=== PATIENT | female | born 1965 | race Caucasian/White ===

== ENCOUNTER 2017-09-12 17:09 | Inpatient (IN) | payer OTHER, SELFPAY ==
[2017-09-12] VITALS (12 sets, daily range): BP systolic 109–153; BP diastolic 71–113; PULSE 91–110; RESP 14–25; TEMP 36.4–36.8; O2SAT 92–96; BMI 46.0; BMI 46.1; BMI 49.8
[2017-09-12 17:31] LABS: Bedside Glucose > 500 mg/dL (70-110)
[2017-09-12 17:47] LABS: Mucous, Urine 0 SEEN /hpf (<or=2+); Red Blood Cells-Urine 0 SEEN /hpf (0-5)
[2017-09-12 17:51] LABS: Color, Urine Straw (Yellow); Glucose, Dipstick 1000 mg/dl (Normal); Ketone-Dipstick Negative (Negative); Leukocyte Esterase-Dipstick 100 /ul (Negative); Nitrite-Dipstick Negative (Negative); Occult Blood-Urine 25 /ul (Negative); Protein-Dipstick 15 mg/dl (Negative); Urine Bilirubin Dipstick Negative (Negative); Urine Clarity Clear (Clear); Urine Urobilinogen Normal (Normal); Urine pH 6.5 (5.0 - 8.0)
[2017-09-12 17:56] LABS: Blood Gas Specimen Type VEN; O2 Delivery Device Room Air; Time Given 1740; VBG BASE EXCESS 4 mmol/L (-1.0-3.5); VBG Bicarbonate 29 mmol/L (22-26); VBG Oxygen Content 30 mmol/L (23-33); VBG PO2 46 mmHg (25-40); VBG SO2 82 % (50-70); VBG pCO2 45.6 mmHg (41-51); VBG pH 7.41 (7.32-7.42)
[2017-09-12] MEDS: 0.9% Normal Saline 1,000 ML 1000 ML IV ×2 (17:56→18:00)
[2017-09-12 18:03] LABS: Absolute Lymphocyte Count 1.66 X10^3/ul (0.83-4.51); Absolute Neutrophil Count 4.2 X10^3/uL (2.0-7.7); Basophil# 0.04 X10^3/uL; Basophil% 0.6 % (0-1); Eosinophil# 0.18 X10^3/uL; Eosinophils% 2.8 % (0-5); Hematocrit 40.5 % (37-47); Hemoglobin 12.7 g/dl (12.0-15.0); Lymphocyte # 1.66 X10^3/ul (4.0); Lymphocyte % 26.1 % (19-41); Mean Corp Hgb Conc 31.4 g/gl (32-36); Mean Corpuscular Hgb 24.5 pg (27.0-32.0); Mean Corpuscular Volume 78.2 fL (81-99); Mean Platelet Vol. 10.4 fl (6.2-12.0); Monocyte# 0.27 X10^3/uL; Monocyte% 4.2 % (0-10); Neutrophil # 4.17 X10^3/uL (2.7-7.7); Neutrophil % 65.7 % (47-70); Platelet Count 230 K/mm3 (150-450); RBC Distribution Width CV 16.6 % (11.6-14.6); Red Blood Count 5.18 M/mm3 (4.2-5.4); White Blood Count 6.4 K/mm3 (4.4-11.0)
[2017-09-12 18:12] LABS: POSITIVE COUNT NO; POSITIVE DIFFERENTIAL NO; POSITIVE MORPHOLOGY NO
[2017-09-12 18:21] LABS: Squamous Epithelial Cells - UA 0-5 SEEN /hpf (5-10); White Blood Cells 50-100 SEEN /hpf (0-5); Yeast-Urine 1+ /hpf (None Seen)
[2017-09-12 18:22] LABS: Bacteria RARE /hpf (None Seen)
[2017-09-12 18:31] LABS: ALB/GLOB Ratio 0.6 RATIO (0.9-2.4); AST(SGOT) 106 U/L (15-37); Alanine Aminotransfer ALT/SGPT 89 U/L (13-56); Albumin, Serum 3.3 g/dL (3.2-5.0); Alkaline Phosphatase 237 U/L (45-117); Anion Gap 9 (5-15); BUN 15 mg/dL (7-18); BUN/Creat Ratio 12.9 RATIO (10-20); Calcium,Total 9.1 mg/dL (8.5-10.1); Chloride 87 mmol/L (98-107); Creatinine, Serum 1.16 mg/dL (0.55-1.02); EST Glomerular Filtration Rate 52 mL/min (>60); Est Glom Filt Rate - Afr Amer 63 mL/min (>60); Estimated Creatinine Clearance 43.78 ml/min; Globulin 5.7 g/dL (2.2-4.2); Glucose 711 mg/dL (74-106); Potassium 4.4 mmol/L (3.5-5.1); Sodium Level 123 mmol/L (136-145)
--- NOTE | 2017-09-12 18:43 | ED.RN ---
PT HAS NOT BEEN COMPLIANT WITH MEDICATIONS FOR APPROXIMATELY 2 WEEKS. PT STATES SHE TOOK SOME INSULIN TODAY.
--- NOTE | 2017-09-12 19:09 | HP.PCM_ITS ---
Problem List (1) Hyperosmolar non-ketotic state in patient with type 2 diabetes mellitus Status: Acute (2) Hypertension Status: Chronic Qualifiers: Hypertension type: essential hypertension Qualified Code(s): I10 - Essential (primary) hypertension (3) Hypothyroidism Status: Chronic (4) Hyperlipidemia Status: Chronic (5) Morbid obesity Status: Chronic History of Present Illness Date of Admission: 09/12/17 Chief Complaint: Dizziness, increased thirst The patient is a 51 year old F with a past medical history of type II DM, hypertension, hypothyroidism who comes in with complaints of increased urinary frequency, increased thirst, dizziness, and blurred vision. Patient states that she stopped to take her insulin for about a week. She denied that she was depressed but says she just was not taking good care of herself. She states that she has headaches, blurred vision, but denied any fever or chills or chest pain or palpitations. She complains also of leg cramps. Vitals were T 98.2F, HR 110, BP 153/99, RR 20 Spo2 96% on room air Past Medical History Past Medical History (Chronic Problems): Chronic Problems Hypertension (Chronic) Hypothyroidism (Chronic) Hyperlipidemia (Chronic) Morbid obesity (Chronic) Allergies codeine Allergy (Verified 09/12/17 17:11) Angioedema Penicillins Allergy (Verified 09/12/17 17:11) Rash Sulfa (Sulfonamide Antibiotics) Allergy (Verified 09/12/17 17:11) Rash sulfamethoxazole [From Bactrim] Allergy (Verified 09/12/17 17:11) Rash trimethoprim [From Bactrim] Allergy (Verified 09/12/17 17:11) Rash Home Medications: Ambulatory Orders Medication Instructions Recorded Atorvastatin Calcium [Lipitor] 40 mg PO QHS 08/18/15 Insulin Aspart [Novolog Flexpen 30 units SQ ACHS 08/18/15 (BK)] Levonorgestrel [Mirena] 1 each IY X1 08/18/15 Levothyroxine Sodium [Synthroid] 300 mcg PO DAILY 08/18/15 Lisinopril [Zestril] 40 mg PO DAILY 08/18/15 Metformin HCl [Glucophage] 500 mg PO DAILY 08/18/15 Dulaglutide [Trulicity] 1.5 mg SQ QWEEK 01/24/17 Insulin Degludec [Tresiba 74 units SQ DAILY 01/24/17 Flextouch U-100] Ergocalciferol [Vitamin D] 50,000 unit PO Q7D 09/12/17 Naproxen [Naprosyn] 500 mg PO BID 09/12/17 Surgical History: cholecystectomy, dilatation and curettage Psychiatric History: No pertinent psych hx OB/GYN DOCTOR History: No pertinent OB/GYN DOCTOR history Lives: With Family Smoking Status: Former smoker Tobacco Use: Non-smoker Alcohol: Occasional Drugs: None - *Family History Maternal History Items: Cancer - breast, Diabetes Paternal History Items: Cancer - brain, kidney Review of Systems Constitutional: Denies: Anorexia, Chills, Fever, Weakness, Weight Change Eyes: Denies: Blurred vision, Cataracts, Conjunctivae Inflammation, Double vision, Pain, Redness HEENT: Denies: Difficulty Hearing, Head Aches, Hearing Changes, Sinus Congestion , Sinus Drainage, Sore Throat Cardiovascular: Denies: Chest Pain, Claudication, Chest Pressure, Orthopnea, Palpitations Respiratory: Denies: Cough, Hemoptysis, Shortness of breath at rest, Shortness of breath upon exertion, Sputum production Gastrointestinal: Denies: Abdominal Pain, Constipation, Hematemesis, Nausea, Vomiting Genitourinary: Denies: Dysuria, Frequency, Incontinence Musculoskeletal: Denies: Joint Pain, Joint stiffness, Joint swelling, Joint Tenderness Skin: Denies: Rash, Wounds Neurological: Denies: Difficulty swallowing, Focal weakness, Numbness, Tingling Psychiatric: Denies: Anxiety, Depression, Homicidal Ideations, Suicidal Ideations Endocrine: Denies: Change in Body Habitus, Heat/ Cold Intolerance Hematologic/ Lymphatic: Denies: Easy Bruising, Easy Bleeding VTE Information - Inpt Only VTE Present on Admission: No VTE Pharm Prophylaxis ordered?: Yes Patient Problems: Active and Suspected Problems Hyperosmolar non-ketotic state in patient with type 2 diabetes mellitus (Acute) - Physical Exam General: Alert, Oriented x3, Cooperative HEENT: Atraumatic, PERRLA, EOMI, Normocephalic Oral: Moist Mucosa Neck: Supple Lungs: Clear to auscultation, Normal air movement Cardiovascular: Regular rate, Regular Rhythm, Normal S1, Normal S2, No murmurs Abdomen: Bowel Sounds Present, Soft, Non Tender, Non-Distended, No Hepato- splenomegaly Extremities: No edema Skin: No rashes Musculoskeletal: No Tenderness to Palpation of Joints or Extremities Lymphatic: No Cervical, Supraclavicular, or Inguinal Adenopathy Neurological: Cranial nerves II-XII grossly intact, Neuro grossly intact Psych/Mental Status: Normal Affect, Appropriate Vital Signs Temp Pulse Resp BP Pulse Ox 98.2 F 110 H 20 H 153/99 H 96 09/12/17 17:12 09/12/17 17:12 09/12/17 17:12 09/12/17 17:12 09/12/17 17:12 Oxygen Delivery Method Room Air Weight: 110.7 kg Body Mass Index (BMI) 46.0 Finger Stick Blood Glucose 600 Laboratory Tests Past 24 Hrs 09/12/17 09/12/17 09/12/17 17:20 17:40 17:40 WBC 6.4 RBC 5.18 Hgb 12.7 Hct 40.5 MCV 78.2 L MCH 24.5 L MCHC 31.4 L RDW 16.6 H RDW Differential 47.0 H Plt Count 230 MPV 10.4 Immature Gran % (Auto) 0.600 Neut % (Auto) 65.7 Lymph % (Auto) 26.1 [place] % (Auto) 4.2 Eos % (Auto) 2.8 Baso % (Auto) 0.6 Absolute Neuts (auto) 4.2 Absolute Lymphs (auto) 1.66 Total Counted Not Reportable Specimen Type VBG pH VBG pO2 VBG O2 Sat (Calc) VBG O2 Content VBG Base Excess POC Mix VBG pCO2 Pt Tmp O2 Delivery Device Blood Gas Notified Whom Blood Gas Notified Time Sodium 123 L Potassium 4.4 Chloride 87 L Carbon Dioxide 27.0 Anion Gap 9 BUN 15 Creatinine 1.16 H Estim Creat Clear Calc 43.78 Est GFR (MDRD) Af Amer 63 Est GFR (MDRD) Non-Af 52 L BUN/Creatinine Ratio 12.9 Glucose 711 H* Calcium 9.1 Total Bilirubin 0.50 AST 106 H ALT 89 H Alkaline Phosphatase 237 H Total Protein 9.0 H Albumin 3.3 Globulin 5.7 H Albumin/Globulin Ratio 0.6 L Urine Color Straw Urine Clarity Clear Urine pH 6.5 Ur Specific [place] 1.010 Urine Protein 15 H Urine Glucose (UA) 1000 H Urine Ketones Negative Urine Occult Blood 25 H Urine Nitrite Negative Urine Bilirubin Negative Urine Urobilinogen Normal Ur Leukocyte Esterase 100 H Urine RBC 0 SEEN Urine WBC 50-100 SEEN Ur Squamous Epith Cells 0-5 SEEN Urine Bacteria RARE Urine Mucus 0 SEEN Urine Yeast 1+ Acetone Level 09/12/17 09/12/17 17:40 17:49 WBC RBC Hgb Hct MCV MCH MCHC RDW RDW Differential Plt Count MPV Immature Gran % (Auto) Neut % (Auto) Lymph % (Auto) [place] % (Auto) Eos % (Auto) Baso % (Auto) Absolute Neuts (auto) Absolute Lymphs (auto) Total Counted Specimen Type SATHYA VBG pH 7.41 VBG pO2 46 H VBG O2 Sat (Calc) 82 H VBG O2 Content 30 VBG Base Excess 4 H POC Mix VBG pCO2 Pt Tmp 45.6 O2 Delivery Device Room Air Blood Gas Notified Whom ED Blood Gas Notified Time 1740 Sodium Potassium Chloride Carbon Dioxide Anion Gap BUN Creatinine Estim Creat Clear Calc Est GFR (MDRD) Af Amer Est GFR (MDRD) Non-Af BUN/Creatinine Ratio Glucose Calcium Total Bilirubin AST ALT Alkaline Phosphatase Total Protein Albumin Globulin Albumin/Globulin Ratio Urine Color Urine Clarity Urine pH Ur Specific [place] Urine Protein Urine Glucose (UA) Urine Ketones Urine Occult Blood Urine Nitrite Urine Bilirubin Urine Urobilinogen Ur Leukocyte Esterase Urine RBC Urine WBC Ur Squamous Epith Cells Urine Bacteria Urine Mucus Urine Yeast Acetone Level NEGATIVE POC Glucose 09/12/17 17:26 POC Glucose > 500 H* Assessment/Plan Active and Suspected Problems Hyperosmolar non-ketotic state in patient with type 2 diabetes mellitus (Acute) 51 year old F with a past medical history of type II DM, hypertension, hypothyroidism who comes in with complaints of increased urinary frequency, increased thirst, dizziness, and blurred vision. 1. HHS in a type 2DM patient to medication noncompliance, anion gap is 9, patient is very dehydrated, tachycardic from dehydration, HbA1c was 11.1(2013) Plan: Admit to ICU, IV fluids, insulin drip, BMP every 4 hours, monitor vitals closely, strict I's and O's 2. Hyponatremia secondary to hyperglycemia, will give IV fluids and recheck blood work in a.m. 3. NARAYAN secondary to dehydration, will give IV fluids, recheck labs in am 4. Elevated liver function tests, likely secondary to fatty liver, will check acute hepatic panel, ultrasound of the liver 5. Asymptomatic bacteriuria, was given 1 dose of ceftriaxone in the ED, would not treat as patient has no symptoms of UTI -urine frequency is secondary to uncontrolled blood glucose 6. Hypertension, uncontrolled, on lisinopril, will hold for now in light of NARAYAN , will add hydralazine prn 7. Hypothyroidism, on Synthroid 8. Hypelipidemia, on statin 9. Morbid Obesity, diet and exercise advised, needs referral to weight management/bariatric clinic in the outpatient. 10. DVT PPx -Lovenox SC Code Visit Inpatient E&M: 42274 Init Hosp L3
--- NOTE | 2017-09-12 19:13 | ED.VISSUMM ---
- ER Visit Summary Date of Service: 09/12/17 Chief Complaint: High blood sugar History of Present Illness: The patient is a 51 F who has been noncompliant with her insulin for the past 2-3 weeks. She states that she just quit taking it. I am she has had urinary frequency increased thirst and is concerned for dehydration. She also complains of muscle cramps. She has not been checking her blood sugar at home. No fevers vomiting diarrhea chest pain shortness of breath or abdominal pain. Physical Examination: Heart rate 110 vitals otherwise unremarkable I mucous membranes Heart regular tachycardia Lungs are clear Abdomen soft No rash Alert Test Results: Laboratory studies notable for glucose of 711. Sodium 123. Normal anion gap. Negative ketones. Normal pH on venous blood gas. Alkaline phosphatase is 237 with ALT 89 and AST 106. UA shows leukocyte esterase and 50-100 WBCs. Emergency Department Course and Treatment: Was treated with aggressive IV fluids. She was started on insulin drip and given IV Rocephin for UTI. She was discussed with the hospitalist and will be admitted to the ICU. Treatment Plan: [] Disposition: Admit Impression: UTI HHS This note was generated with [employer] dictation software. It may contain incorrect words, spelling, and punctuation that were not noted in review of the chart prior to signing ED Disposition - Plan for ED Patient: Chief Complaint: Hyperglycemia Referrals: Tj Douglass MD [Primary Care Provider] -
[2017-09-12] MEDS: Ceftriaxone 1 GM/50 mL Premix x1 IV (19:39)
[2017-09-12 19:46] LABS: Bedside Glucose > 500 mg/dL (70-110)
--- NOTE | 2017-09-12 20:08 | NURSING ---
BLOOD GLUCOSE DECREASED BY 55, DECREASED RATE BY 2UNITS/HR. INSULIN RUNNING AT 3.5UNITS/HR.
[2017-09-12 20:10] LABS: Bedside Glucose 492 mg/dL (70-110)
[2017-09-12 20:46] LABS: Bedside Glucose 446 mg/dL (70-110)
[2017-09-12 21:03] LABS: Magnesium 1.9 mg/dL (1.6-2.6)
[2017-09-12 21:13] LABS: Hemoglobin A1c 13.8 % (4.2-6.3)
[2017-09-12] MEDS: Atorvastatin Calcium 20 MG Tablet 40 MG PO (21:30)
[2017-09-12 22:01] LABS: Bedside Glucose 413 mg/dL (70-110)
[2017-09-12 22:33] LABS: M R Staph aureus DNA By PCR Negative (Negative); Probe Check PASS; Specimen Processing Control PASS
[2017-09-12 22:40] LABS: Bedside Glucose 400 mg/dL (70-110)
[2017-09-12] MEDS: 0.9% Normal Saline 1,000 ML 250 ML IV (22:40)
[2017-09-12 23:41] LABS: Bedside Glucose 322 mg/dL (70-110)
[2017-09-13] VITALS (16 sets, daily range): BP systolic 98–127; BP diastolic 64–84; PULSE 82–97; RESP 14–26; TEMP 36.1–37.3; O2SAT 92–99
[2017-09-13 00:51] LABS: Bedside Glucose 322 mg/dL (70-110)
[2017-09-13 01:56] LABS: Bedside Glucose 317 mg/dL (70-110)
[2017-09-13 02:31] LABS: Bedside Glucose 325 mg/dL (70-110)
[2017-09-13 03:41] LABS: Bedside Glucose 326 mg/dL (70-110)
[2017-09-13] MEDS: 0.9% Normal Saline 1,000 ML 250 ML IV (03:48)
[2017-09-13 04:05] LABS: Hematocrit 36.9 % (37-47); Hemoglobin 11.6 g/dl (12.0-15.0); Mean Corp Hgb Conc 31.4 g/gl (32-36); Mean Corpuscular Hgb 23.9 pg (27.0-32.0); Mean Corpuscular Volume 76.1 fL (81-99); Mean Platelet Vol. 10.4 fl (6.2-12.0); Platelet Count 231 K/mm3 (150-450); RBC Distribution Width CV 16.9 % (11.6-14.6); RBC Distribution Width SD 45.2 fl (35.1-43.9); Red Blood Count 4.85 M/mm3 (4.2-5.4); White Blood Count 6.4 K/mm3 (4.4-11.0)
[2017-09-13 04:09] LABS: Scan Indicated on CBC? Y/N NO
[2017-09-13 04:41] LABS: Bedside Glucose 354 mg/dL (70-110)
[2017-09-13] MEDS: Levothyroxine 150 MCG Tablet 300 MCG PO (05:08)
[2017-09-13 05:09] LABS: ALB/GLOB Ratio 0.6 RATIO (0.9-2.4); AST(SGOT) 70 U/L (15-37); Alanine Aminotransfer ALT/SGPT 68 U/L (13-56); Albumin, Serum 2.9 g/dL (3.2-5.0); Alkaline Phosphatase 169 U/L (45-117); Anion Gap 5 (5-15); BUN 11 mg/dL (7-18); BUN/Creat Ratio 14.2 RATIO (10-20); Bilirubin, Direct 0.13 mg/dL (0.00-0.30); Calcium,Total 8.1 mg/dL (8.5-10.1); Chloride 96 mmol/L (98-107); Creatinine, Serum 0.78 mg/dL (0.55-1.02); EST Glomerular Filtration Rate 83 mL/min (>60); Est Glom Filt Rate - Afr Amer 101 mL/min (>60); Estimated Creatinine Clearance 65.11 ml/min; Glucose 340 mg/dL (74-106); Potassium 3.9 mmol/L (3.5-5.1); Protein, Total 7.9 g/dL (6.4-8.2); Sodium Level 132 mmol/L (136-145)
[2017-09-13 05:55] LABS: Bedside Glucose 384 mg/dL (70-110)
--- NOTE | 2017-09-13 05:55 | US_ITS ---
STUDY: ABDOMINAL ULTRASOUND - RIGHT UPPER QUADRANT REASON FOR VISIT: Female, 51 years old. Elevated liver function tests. TECHNIQUE: Ultrasound evaluation of the right upper quadrant was performed with real-time and static hardin-scale imaging. TECHNICAL QUALITY: Adequate. COMPARISON: None. FINDINGS: Liver: The liver is enlarged and measures 21.7 cm. There is increased echogenicity consistent with fatty infiltration. The bile ducts are within normal limits. There is hepatic color flow. The direction of portal flow is hepatopetal. There is no demonstrated mass lesion. Gallbladder: The patient is status post cholecystectomy. Common Bile Duct (C.B.D.): The common bile duct measures 3.1 mm. Pancreas: Normal size of the head, body of the pancreas. The tail portion is obscured due to overlying bowel gas. There is normal echogenicity of the pancreas. There is no demonstrated pancreatic mass or cyst. Right Kidney: Normal size of the right kidney. The right kidney measures 12.3 cm x 4.7 cm x 5.1 cm. Normal renal cortex. The right cortex measures 1.6 cm. There is no demonstrated renal mass or cyst. There is no right hydronephrosis. US/Liver IMPRESSION: Hepatomegaly and fatty infiltration of the liver. Electronically Signed: Moy Rivera MD at 13:57 EST Tel [phone], Service support ,
[2017-09-13 07:06] LABS: Bedside Glucose 417 mg/dL (70-110)
[2017-09-13] MEDS: Ipratropium/Albuterol Sulfate 3 ML AMPUL.NEB INHALATION ×3 (07:19→15:05)
--- NOTE | 2017-09-13 10:47 | PN_ITS ---
Patient Problems: Active and Suspected Problems Hyperosmolar non-ketotic state in patient with type 2 diabetes mellitus (Acute) Subjective: Chief complaint: Follow-up after admission for hyperglycemic hyperosmolar state , severe dehydration and pseudohyponatremia. Patient seen and examined. No acute events overnight. She complained of mild headache and nausea. Denied abdominal pain, vomiting. All over, she is feeling better. Her vital signs are stable. - Physical Exam General: Alert, Oriented x3, Cooperative, No apparent distress HEENT: Atraumatic, PERRLA, EOMI Oral: No Gingival or Mucosal Lesions/ Ulcerations, Dry Mucosa Neck: Supple, No JVD, Negative Carotid Bruits, Trachea Midline, Thyroid Normal Size and Texture Lungs: Clear to auscultation, No rhonchi, No wheeze, No rales, Diminished Cardiovascular: Regular rate, Regular Rhythm, Normal S1, Normal S2, No murmurs, PMI Normal Abdomen: Bowel Sounds Present, Soft, Non Tender, Non-Distended, No Hepato- splenomegaly, Obese Extremities: No clubbing, No cyanosis, No edema Skin: No rashes, No breakdown Lymphatic: No Cervical, Supraclavicular, or Inguinal Adenopathy Neurological: Cranial nerves II-XII grossly intact, Motor Exam 5/5 strength throughout Psych/Mental Status: Normal Affect, Appropriate, Alert and oriented to time, place, person, mood and affect Vital Signs Temp Pulse Resp BP Pulse Ox 98.5 F 95 24 H 124/83 H 94 09/13/17 05:00 09/13/17 09:00 09/13/17 09:00 09/13/17 09:00 09/13/17 09:00 Oxygen Flow Rate 2 Oxygen Delivery Method Room Air Weight: 264 lb 12.403 oz Body Mass Index (BMI) 49.8 Finger Stick Blood Glucose 492 Intake and Output for Last 24 Hours 09/11/17 09/12/17 09/13/17 23:59 23:59 23:59 Intake Total 1125.4 / 1125.4 1296.5 / 1296.5 Output Total 225 / 225 275 / 275 Balance 900.4 / 900.4 1021.5 / 1021.5 Laboratory Tests Past 24 Hrs 09/12/17 09/12/17 09/12/17 20:25 20:30 20:30 WBC RBC Hgb Hct MCV MCH MCHC RDW RDW Differential Plt Count MPV Sodium Potassium Chloride Carbon Dioxide Anion Gap BUN Creatinine Estim Creat Clear Calc Est GFR (MDRD) Af Amer Est GFR (MDRD) Non-Af BUN/Creatinine Ratio Glucose Hemoglobin A1c 13.8 H Calcium Magnesium 1.9 Total Bilirubin Direct Bilirubin AST ALT Alkaline Phosphatase Troponin I Total Protein Albumin Globulin Albumin/Globulin Ratio Hepatitis A IgM Ab Hep Bs Antigen Hep B Core IgM Ab Hepatitis C Ab (EIA) MRSA (PCR) Negative 09/12/17 09/13/17 09/13/17 20:30 00:00 03:50 WBC 6.4 RBC 4.85 Hgb 11.6 L Hct 36.9 L MCV 76.1 L MCH 23.9 L MCHC 31.4 L RDW 16.9 H RDW Differential 45.2 H Plt Count 231 MPV 10.4 Sodium Potassium Chloride Carbon Dioxide Anion Gap BUN Creatinine Estim Creat Clear Calc Est GFR (MDRD) Af Amer Est GFR (MDRD) Non-Af BUN/Creatinine Ratio Glucose Hemoglobin A1c Calcium Magnesium Total Bilirubin Direct Bilirubin AST ALT Alkaline Phosphatase Troponin I 0.05 Total Protein Albumin Globulin Albumin/Globulin Ratio Hepatitis A IgM Ab Pending Hep Bs Antigen Pending Hep B Core IgM Ab Pending Hepatitis C Ab (EIA) Pending MRSA (PCR) 09/13/17 09/13/17 09/13/17 03:50 03:50 08:40 WBC RBC Hgb Hct MCV MCH MCHC RDW RDW Differential Plt Count MPV Sodium 132 L Potassium 3.9 Chloride 96 L Carbon Dioxide 31.0 Anion Gap 5 BUN 11 Creatinine 0.78 Estim Creat Clear Calc 65.11 Est GFR (MDRD) Af Amer 101 Est GFR (MDRD) Non-Af 83 BUN/Creatinine Ratio 14.2 Glucose 340 H Hemoglobin A1c Calcium 8.1 L Magnesium Total Bilirubin 0.40 Direct Bilirubin 0.13 AST 70 H ALT 68 H Alkaline Phosphatase 169 H Troponin I 0.05 0.05 Total Protein 7.9 Albumin 2.9 L Globulin 5.0 H Albumin/Globulin Ratio 0.6 L Hepatitis A IgM Ab Hep Bs Antigen Hep B Core IgM Ab Hepatitis C Ab (EIA) MRSA (PCR) POC Glucose 09/13/17 09/13/17 09/13/17 07:00 05:47 04:37 POC Glucose 417 H 384 H 354 H 09/13/17 09/13/17 09/13/17 03:35 02:26 01:48 POC Glucose 326 H 325 H 317 H 09/13/17 09/12/17 09/12/17 00:42 23:35 22:35 POC Glucose 322 H 322 H 400 H 09/12/17 09/12/17 09/12/17 21:53 20:28 20:03 POC Glucose 413 H 446 H 492 H* 09/12/17 19:32 POC Glucose > 500 H* Assessment/Plan Active and Suspected Problems Hyperosmolar non-ketotic state in patient with type 2 diabetes mellitus (Acute) this is a 51 years old female patient presented to the emergency room because of high blood sugar, thirst and dizziness and she was found to have blood sugar of more than 700 mg/dL, serum bicarbonate of 27 and no ketones in the urine consistent with hyperosmolar hyperglycemic state with severe dehydration and pseudohyponatremia. #1 hyperglycemic hyperosmolar state: This is due to noncompliance. This is based on blood sugar of more than 600 on admission, serum bicarbonate of more than 18 and negative acetone in the urine. Patient was on IV insulin drip. Blood sugar 123 100-400 range this morning. She is off insulin drip. Serum bicarbonate and anion gap are normal. Plan: Start ADA diet, resume home doses of NovoLog insulin and degludec insulin, transferred to [facility] floor. #2 severe dehydration: Secondary to above. Mucous membranes are very dry, felt better. Admission creatinine was 1.16, today's creatinine is 0.78, BUN is normal. Plan to continue IV fluids, repeat BMP tomorrow morning. #3 pseudohyponatremia: Secondary to hypoglycemia. Admission sodium was 123, improved to 132 today. Corrected sodium for glucose this morning is 136 mg/dL. #4 elevated LFT:Patient denied any right upper quadrant abdominal pain. Could be due to fatty liver and diabetes. Liver transaminases are trending down as well as alkaline phosphatase. Total and direct bilirubin are normal. Ultrasound liver done, awaiting the results. #5 uncontrolled type 2 diabetes mellitus: Hemoglobin A1c is 13.8. Patient admitted that she is not compliant with her insulin at home. Plan as above. #6 hypertension: Blood pressure stable, continue current medication. #7 hypothyroidism: Continue levothyroxine. #8 hyperlipidemia: Continue statins. #9 DVT prophylaxis: Subcu Lovenox. This note was generated with [employer] dictation software. It may contain incorrect words, spelling, and punctuation that were not noted in checking the note before signing. Code Visit Inpatient E&M: 50737 Subs Hosp L2
[2017-09-13] MEDS: Famotidine 20 MG Tablet PO (10:51)
--- NOTE | 2017-09-13 12:04 | SLEEP ---
Patient had POSITIVE split night sleep study on 08/14/17 for which she was ordered CPap 13cm by Dr. Derek Douglass. Per documentation from [facility] they have been unable to reach her to schedule setup. Discussed this with the patient, she states she has an appt for October 07 at [facility] [place] machine pecan picker her cpap. I verified this with Reyna at [facility] and made her aware of patient's financial concerns. She will note patient chart there and have them discuss options with her. They will attempt to see while still in hospital if possible.
[2017-09-13 12:06] LABS: Bedside Glucose 397 mg/dL (70-110)
--- NOTE | 2017-09-13 12:20 | CASEMGMT ---
See [facility]FON[facility] WHATLEY Assessment Note. DC PLAN: HOME -Pt states she tries to manage her blood sugar @ home, but recently has not been compliant with diet and testing. 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 states I do good for a while, but then I stop. -states she has blood glucose monitoring equipment that is functioning. -states she follows up with Dr. Douglass every three months. Next appointment verified to be October 23 @3:40 pm. -states she goes to [facility] (next appt September 24 @ 1 pm) -ALFONZO WHATLEY encouraged her to keep these appointments. Lengthy discussion re: her difficulties with [facility] chronic condition and compliance, support and affirmation that she is following up with physician appointments. -Brochure for [facility] diabetic clinic given and explained. Masoud SEAY RN ACM
[2017-09-13 16:55] LABS: Bedside Glucose 398 mg/dL (70-110)
[2017-09-13] MEDS: Atorvastatin Calcium 20 MG Tablet 40 MG PO (21:39)
[2017-09-13 21:52] LABS: Bedside Glucose 348 mg/dL (70-110)
[2017-09-14 02:15] VITALS: BP 93/57; PULSE 82; RESP 16; TEMP 36.4; O2SAT 94
[2017-09-14] MEDS: Levothyroxine 150 MCG Tablet 300 MCG PO (05:39)
[2017-09-14 06:46] LABS: Absolute Lymphocyte Count 2.88 X10^3/ul (0.83-4.51); Absolute Neutrophil Count 4.2 X10^3/uL (2.0-7.7); Basophil# 0.05 X10^3/uL; Basophil% 0.6 % (0-1); Eosinophil# 0.22 X10^3/uL; Eosinophils% 2.7 % (0-5); Hematocrit 39.2 % (37-47); Hemoglobin 12.2 g/dl (12.0-15.0); Lymphocyte # 2.88 X10^3/ul (4.0); Lymphocyte % 35.8 % (19-41); Mean Corp Hgb Conc 31.1 g/gl (32-36); Mean Corpuscular Hgb 24.4 pg (27.0-32.0); Mean Corpuscular Volume 78.2 fL (81-99); Mean Platelet Vol. 10.2 fl (6.2-12.0); Monocyte# 0.56 X10^3/uL; Neutrophil # 4.22 X10^3/uL (2.7-7.7); Neutrophil % 52.4 % (47-70); Platelet Count 237 K/mm3 (150-450); RBC Distribution Width CV 17.3 % (11.6-14.6); RBC Distribution Width SD 48.4 fl (35.1-43.9); Red Blood Count 5.01 M/mm3 (4.2-5.4); White Blood Count 8.1 K/mm3 (4.4-11.0)
[2017-09-14 06:49] LABS: POSITIVE COUNT NO; POSITIVE DIFFERENTIAL NO; POSITIVE MORPHOLOGY NO
[2017-09-14 07:00] LABS: Anion Gap 6 (5-15); BUN 10 mg/dL (7-18); BUN/Creat Ratio 13.3 RATIO (10-20); Calcium,Total 8.4 mg/dL (8.5-10.1); Chloride 99 mmol/L (98-107); Creatinine, Serum 0.75 mg/dL (0.55-1.02); EST Glomerular Filtration Rate 86 mL/min (>60); Est Glom Filt Rate - Afr Amer 105 mL/min (>60); Estimated Creatinine Clearance 67.72 ml/min; Glucose 192 mg/dL (74-106); Potassium 4.1 mmol/L (3.5-5.1); Sodium Level 135 mmol/L (136-145)
[2017-09-14 07:35] VITALS: O2SAT 94
[2017-09-14 08:13] VITALS: BP 116/75; PULSE 82; RESP 18; TEMP 36.4; O2SAT 98
[2017-09-14 08:31] LABS: Bedside Glucose 277 mg/dL (70-110)
--- NOTE | 2017-09-14 09:40 | DCINST_ITS ---
- Discharge Diagnoses Current Active Problems: Current Active and Chronic Problems Hyperosmolar non-ketotic state in patient with type 2 diabetes mellitus (Acute) Hypertension (Chronic) Hypothyroidism (Chronic) Hyperlipidemia (Chronic) Morbid obesity (Chronic) You will use the following diet at home:: Calorie/Carbohydrate Controlled ( specify 1200, 1400, etc) - 1800 hammad. Your food should be the consistency of: Regular Discharge Activity: Return to Normal Activity Weight Bearing Status: Full weight bearing Call your doctor if you observe: Fever of 101 or Higher, Shortness of breath, Dizziness, Fainting spells, Chest pain, Increased palpitations (irregular heartbeat), Uncontrolled pain Instructions: Using a Blood Sugar Log, Hyperglycemia (High Blood Sugar), Hypoglycemia (Low Blood Sugar), How to Check Your Blood Sugar Allergies/Adverse Reactions: Allergies codeine Allergy (Verified 09/12/17 17:11) Angioedema Penicillins Allergy (Verified 09/12/17 17:11) Rash Sulfa (Sulfonamide Antibiotics) Allergy (Verified 09/12/17 17:11) Rash sulfamethoxazole [From Bactrim] Allergy (Verified 09/12/17 17:11) Rash trimethoprim [From Bactrim] Allergy (Verified 09/12/17 17:11) Rash Medications to take at Discharge Atorvastatin Calcium [Lipitor] 40 mg PO QHS 08/18/15 Insulin Aspart [Novolog Flexpen] 30 units SQ ACHS 08/18/15 Levonorgestrel [Mirena] 1 each IY X1 08/18/15 Levothyroxine Sodium [Synthroid] 300 mcg PO DAILY 08/18/15 Metformin HCl [Glucophage] 500 mg PO DAILY 08/18/15 Dulaglutide [Trulicity] 1.5 mg SQ QWEEK 01/24/17 Insulin Degludec [Tresiba Flextouch U-100] 74 units SQ DAILY 01/24/17 Ergocalciferol [Vitamin D] 50,000 unit PO Q7D 09/12/17 Naproxen [Naprosyn] 500 mg PO BID 09/12/17 Lisinopril [Zestril] 2.5 mg PO DAILY 09/13/17 Primary Care Physician: Tj Douglass MD [Primary Care Provider] - Please follow up with your Primary Care Physician in: 1 week.
[2017-09-14] MEDS: Famotidine 20 MG Tablet PO (10:36)
--- NOTE | 2017-09-14 14:48 | PCM.DC.SUM ---
Discharge Date and Diagnosis Date of Admission: 09/12/17 Date of Discharge: 09/14/17 - Primary Discharge Diagnosis #1 hyperglycemic hyperosmolar state. #2 severe dehydration. #3 elevated LFT, attributed to fatty infiltration of the liver. #4 uncontrolled type 2 diabetes mellitus. - Secondary Discharge Diagnosis Chronic Problems Hypertension (Chronic) Hypothyroidism (Chronic) Hyperlipidemia (Chronic) Morbid obesity (Chronic) Hospital Course and Treatment Imaging Results: Clinical Impression(s) from Imaging Studies Liver Ultrasound 09/13/17 05:55 IMPRESSION: Hepatomegaly and fatty infiltration of the liver. Electronically Signed: Moy Rivera MD at 13:57 EST Tel [phone], Service support , Operations: None Procedures: None Summary of Care Provided: Patient seen and examined on the day of discharge and appears to be stable to be discharged home. Today, she has no more symptoms. She is tolerating diet. Blood sugar has been in the range of 200-300. Vital signs are stable. - Physical Exam General: Alert, Oriented x3, Cooperative, No apparent distress. HEENT: Atraumatic, PERRLA, EOMI. Neck: Supple, No JVD, Negative Carotid Bruits, Trachea Midline, Thyroid Normal. Lungs: Diminished breath sounds bilateral, otherwise clear, No rhonchi, No wheeze, No rales. Cardiovascular: Regular rate, Regular Rhythm, Normal S1, Normal S2, PMI Normal. Abdomen: Bowel Sounds Present, Soft, Non Tender, Non-Distended, No Hepato-splenomegaly. Extremities: No clubbing, No cyanosis, No edema Skin: No rashes, No breakdown Neurological: Neuro grossly intact Vital Signs are stable. Hospital course: The patient is a 51 year old F admitted because of high blood sugar, thirst and dizziness and she was found to have blood sugar of more than 700 mg/dL with serum bicarbonate of 27 and no ketones in the urine consistent with hyperosmolar hyperkalemic state. Patient was severely dehydrated because of the severe hypoglycemia and her sodium was low because of pseudohyponatremia. Patient was admitted to intensive care unit, started on IV insulin drip as well as IV fluids. Her blood sugar significantly improved and she was started on ADA diet. Patient was severely dehydrated, mucous membranes were very dehydrated and her creatinine was 1.16 which improved down to 0.78 with IV fluids. She admitted that she is not taking her insulin as supposed to be and she was noncompliant. Her hemoglobin A1c was 13.8. After she was started on her home dosage of long acting insulin with sliding scale, her blood sugar improved and remained around 200-300. Patient symptoms improved and her vital signs remained stable. She was found to have elevated LFT which is attributed to fatty infiltration of the liver. Ultrasound liver done and revealed hepatomegaly with fatty infiltration without evidence of gallstones or cholecystitis. CBD diameter was normal. Patient discharged home in a stable medical condition, discharged on her regular home doses long acting insulin as well as pre-meal NovoLog, counseling provided about the importance of diabetes controlled to avoid long-term complications, continued on her home medication including metformin and Trulicity any changes, highly recommended to check blood pressure at least 3-4 times daily, follow-up with PCP in 1 week. Discharge Activity: Return to Normal Activity Weight Bearing Status: Full weight bearing Call your doctor if you observe: Fever of 101 or Higher, Shortness of breath, Dizziness, Fainting spells, Chest pain, Increased palpitations (irregular heartbeat), Uncontrolled pain Home Medications: Medications to take at Discharge Atorvastatin Calcium [Lipitor] 40 mg PO QHS 08/18/15 Insulin Aspart [Novolog Flexpen] 30 units SQ ACHS 08/18/15 Levonorgestrel [Mirena] 1 each IY X1 08/18/15 Levothyroxine Sodium [Synthroid] 300 mcg PO DAILY 08/18/15 Metformin HCl [Glucophage] 500 mg PO DAILY 08/18/15 Dulaglutide [Trulicity] 1.5 mg SQ QWEEK 01/24/17 Insulin Degludec [Tresiba Flextouch U-100] 74 units SQ DAILY 01/24/17 Ergocalciferol [Vitamin D] 50,000 unit PO Q7D 09/12/17 Naproxen [Naprosyn] 500 mg PO BID 09/12/17 Lisinopril [Zestril] 2.5 mg PO DAILY 09/13/17 Primary Care Physician: Tj Douglass MD [Primary Care Provider] - Please follow up with your Primary Care Physician in: 1 week. Patient Instructions: Using a Blood Sugar Log, Hyperglycemia (High Blood Sugar), Hypoglycemia (Low Blood Sugar), How to Check Your Blood Sugar Disposition: Home Minutes spent on discharge:: 32 Patient Condition:: Stable Meaningful Use Info Meaningful Use Diagnoses (Choose all that apply): None applicable Code Visit Inpatient E&M: 32360 Disch Hosp
--- NOTE | 2017-09-14 14:55 | DS.PCM_ITS ---
Discharge Date and Diagnosis Date of Admission: 09/12/17 Date of Discharge: 09/14/17 - Primary Discharge Diagnosis #1 hyperglycemic hyperosmolar state. #2 severe dehydration. #3 elevated LFT, attributed to fatty infiltration of the liver. #4 uncontrolled type 2 diabetes mellitus. - Secondary Discharge Diagnosis Chronic Problems Hypertension (Chronic) Hypothyroidism (Chronic) Hyperlipidemia (Chronic) Morbid obesity (Chronic) Hospital Course and Treatment Imaging Results: Clinical Impression(s) from Imaging Studies Liver Ultrasound 09/13/17 05:55 IMPRESSION: Hepatomegaly and fatty infiltration of the liver. Electronically Signed: Moy Rivera MD at 13:57 EST Tel [phone], Service support , Operations: None Procedures: None Summary of Care Provided: Patient seen and examined on the day of discharge and appears to be stable to be discharged home. Today, she has no more symptoms. She is tolerating diet. Blood sugar has been in the range of 200-300. Vital signs are stable. - Physical Exam General: Alert, Oriented x3, Cooperative, No apparent distress. HEENT: Atraumatic, PERRLA, EOMI. Neck: Supple, No JVD, Negative Carotid Bruits, Trachea Midline, Thyroid Normal. Lungs: Diminished breath sounds bilateral, otherwise clear, No rhonchi, No wheeze, No rales. Cardiovascular: Regular rate, Regular Rhythm, Normal S1, Normal S2, PMI Normal. Abdomen: Bowel Sounds Present, Soft, Non Tender, Non-Distended, No Hepato- splenomegaly. Extremities: No clubbing, No cyanosis, No edema Skin: No rashes, No breakdown Neurological: Neuro grossly intact Vital Signs are stable. Hospital course: The patient is a 51 year old F admitted because of high blood sugar, thirst and dizziness and she was found to have blood sugar of more than 700 mg/dL with serum bicarbonate of 27 and no ketones in the urine consistent with hyperosmolar hyperkalemic state. Patient was severely dehydrated because of the severe hypoglycemia and her sodium was low because of pseudohyponatremia. Patient was admitted to intensive care unit, started on IV insulin drip as well as IV fluids. Her blood sugar significantly improved and she was started on ADA diet. Patient was severely dehydrated, mucous membranes were very dehydrated and her creatinine was 1.16 which improved down to 0.78 with IV fluids. She admitted that she is not taking her insulin as supposed to be and she was noncompliant. Her hemoglobin A1c was 13.8. After she was started on her home dosage of long acting insulin with sliding scale, her blood sugar improved and remained around 200-300. Patient symptoms improved and her vital signs remained stable. She was found to have elevated LFT which is attributed to fatty infiltration of the liver. Ultrasound liver done and revealed hepatomegaly with fatty infiltration without evidence of gallstones or cholecystitis. CBD diameter was normal. Patient discharged home in a stable medical condition, discharged on her regular home doses long acting insulin as well as pre-meal NovoLog, counseling provided about the importance of diabetes controlled to avoid long-term complications, continued on her home medication including metformin and Trulicity any changes, highly recommended to check blood pressure at least 3-4 times daily, follow-up with PCP in 1 week. Discharge Activity: Return to Normal Activity Weight Bearing Status: Full weight bearing Call your doctor if you observe: Fever of 101 or Higher, Shortness of breath, Dizziness, Fainting spells, Chest pain, Increased palpitations (irregular heartbeat), Uncontrolled pain Home Medications: Medications to take at Discharge Atorvastatin Calcium [Lipitor] 40 mg PO QHS 08/18/15 Insulin Aspart [Novolog Flexpen] 30 units SQ ACHS 08/18/15 Levonorgestrel [Mirena] 1 each IY X1 08/18/15 Levothyroxine Sodium [Synthroid] 300 mcg PO DAILY 08/18/15 Metformin HCl [Glucophage] 500 mg PO DAILY 08/18/15 Dulaglutide [Trulicity] 1.5 mg SQ QWEEK 01/24/17 Insulin Degludec [Tresiba Flextouch U-100] 74 units SQ DAILY 01/24/17 Ergocalciferol [Vitamin D] 50,000 unit PO Q7D 09/12/17 Naproxen [Naprosyn] 500 mg PO BID 09/12/17 Lisinopril [Zestril] 2.5 mg PO DAILY 09/13/17 Primary Care Physician: Tj Douglass MD [Primary Care Provider] - Please follow up with your Primary Care Physician in: 1 week. Patient Instructions: Using a Blood Sugar Log, Hyperglycemia (High Blood Sugar) , Hypoglycemia (Low Blood Sugar), How to Check Your Blood Sugar Disposition: Home Minutes spent on discharge:: 32 Patient Condition:: Stable Meaningful Use Info Meaningful Use Diagnoses (Choose all that apply): None applicable Code Visit Inpatient E&M: 82570 Disch Hosp
[2017-09-15 20:06] LABS: HEPATITIS B SURFACE AG Negative (Negative); Hepatitis A IgM Antibody Negative (Negative); Hepatitis B Core AB IgM Negative (Negative)
[2017-09-16 11:30] LABS: Hep C Antibodies 0.1 s/co ratio (0.0-0.9)
== END 2017-09-14 11:05 | disposition home or self-care (01) | DRG 638 ==
LOC: ED 18:18 → ICU 19:30 → MS2 09-13 15:45 → ICU 09-13 15:47
PROVIDERS: Admitting Provider Internal Medicine; Emergency Provider Emergency Medicine; Family Provider Family Medicine; PCP Family Medicine; Visit Provider Hospitalist
DX: E11.00 Type 2 diabetes mellitus with hyperosmolarity without nonketotic hyperglycemic-hyperosmolar coma (NKHHC) (principal); N17.9 Acute kidney failure, unspecified; K76.0 Fatty (change of) liver, not elsewhere classified; Z68.42 Body mass index [BMI] 45.0-49.9, adult; E87.1 Hypo-osmolality and hyponatremia; E66.01 Morbid (severe) obesity due to excess calories; E03.9 Hypothyroidism, unspecified; I10 Essential (primary) hypertension; E78.5 Hyperlipidemia, unspecified; E86.0 Dehydration; Z79.4 Long term (current) use of insulin; Z87.891 Personal history of nicotine dependence; Z91.19 Patient's noncompliance with other medical treatment and regimen; R79.89 Other specified abnormal findings of blood chemistry
CPT/HCPCS: 36415; 76705; 80048; 80053; 80074; 81001; 82009; 82248; 82803; 82962; 83036; 83735; 84484; 85025; 85027; 87641; 94640; 99282; J7030; A4216

== ENCOUNTER 2017-12-22 18:45 | Emergency (ER) | payer OTHER, SELFPAY ==
[2017-12-22 18:46] VITALS: BP 127/83; PULSE 95; RESP 16; TEMP 36.1; O2SAT 98; BMI 50.3
--- NOTE | 2017-12-22 19:20 | RAD_ITS ---
STUDY: X-RAY - SOFT TISSUE NECK REASON FOR EXAM: Female, 52 years old. Cough TECHNIQUE: Two view(s) of the neck were obtained. COMPARISON: None. FINDINGS: Normal visualized nasopharynx, oropharynx, hypopharynx. Normal epiglottis. Normal visualized subglottic tracheal air column. Normal prevertebral soft tissue structures. Normal visualized osseous structures. The soft tissue structures are unremarkable. RAD/Neck for Soft Tissue IMPRESSION: No significant abnormalities are seen radiographically in the neck. Electronically Signed: Natalya Perez MD at 20:04 EDT Tel Direct: [phone], Service support ,
--- NOTE | 2017-12-22 19:38 | CT_ITS ---
STUDY: CT SOFT TISSUE NECK WITHOUT CONTRAST REASON FOR EXAM: Female, 52 years old. Dyspnea. Possible epiglottitis. RADIATION DOSAGE (If Supplied By Facility): CTDIvol = ( 28.11 ) mGy, DLP = ( 519.03 ) mGycm TECHNIQUE: The patient was scanned in a multi-detector CT scanner. High resolution transaxial imaging was performed without the administration of intravenous contrast material. Sagittal and coronal images were reconstructed. Individualized dose optimization techniques were used for this CT. COMPARISON: None. FINDINGS: Evaluation is significantly limited without intravenous contrast. There is mild mucosal hypertrophy in the visualized paranasal sinuses. The mastoid air cells are clear. The visualized intracranial structures are grossly unremarkable. There is no cervical lymphadenopathy. There is no fluid collection identified on this noncontrast study. The airway is patent. There is no evidence of epiglottitis. There are no destructive osseous lesions. CT/Soft Tissue Neck without Contr IMPRESSION: Study significantly limited without contrast. Sinusitis. Otherwise, unremarkable noncontrast CT of the neck. Electronically Signed: Neal Peñaloza, at 20:48 EDT Tel , Service support ,
--- NOTE | 2017-12-22 20:21 | ED.DCSUM_ITS ---
- ER Visit Summary Date of Service: 12/22/17 Chief Complaint: Anterior neck pain and change in voice History of Present Illness: The patient is a 52 F who was seen at the urgent care and treated for acute bronchitis with albuterol metered-dose inhaler. She was not placed on antibiotics or steroid. She reports sore throat, shortness of breath and cough. The cough is nonproductive. Her biggest concern is the throat pain and shortness of breath. She denies fever or chills. She denies any ocular, visual or auditory symptoms. She denies any GI or symptoms. Denies myalgias arthralgias. She does complain of generalized weakness. She denies headache, photophobia or neck pain or stiffness. She denies rash. Please read written note for complete detail Physical Examination: Vital signs revealed slight elevation in blood pressure 127/83. She is afebrile. She is not hypoxic. Head is atraumatic normocephalic. Pupils are equal round reactive. Extraocular muscles are intact. TMs are pearly white with landmarks noted. Nares patent with no drainage. Posterior pharynx without erythema or exudate. Uvula is midline. There is no dysphonia or dysphasia. Trachea is midline. There is no stridor with auscultation of the neck. Heart is regular without murmur, gallop or rub. S1 and S2 are normal. Lungs are clear to auscultation with good movement of air bilaterally. Patient is alert and oriented ?3. Motor is 5 over 5. Sensory is intact. DTRs are symmetric with no clonus or Babinski sign. Cranial 2 through 12 are intact. Cerebellar testing is normal. Test Results: Two-view soft tissue x-ray of the neck was obtained and interpreted by me as inconclusive for epiglottitis. A CT soft tissue neck x- ray was ordered. The epiglottis is normal. There is no narrowing of the airway. Emergency Department Course and Treatment: Soft tissue x-ray of the neck was obtained to rule out epiglottitis. Since x-ray was inconclusive a CT was obtained. Treatment Plan: Chloraseptic [place] or lozenges for throat discomfort Disposition: Discharged home in stable condition Impression: 1. Acute laryngitis 2. Acute viral upper respiratory infection This note was generated with [employer] software. It may contain incorrect words, spelling, and punctuation that were not noted in review of the chart prior to signing ED Disposition - Plan for ED Patient: Disposition: Home or Assisted Living Chief Complaint: Shortness of Breath Instructions: ED Laryngitis Referrals: Tj Douglass MD [Primary Care Provider] - 1 Week if not improving Additional Instructions: For your throat discomfort use either Chloraseptic [place] or lozenges. You may be ill for another 7-10 days.
[2017-12-22 20:29] VITALS: PULSE 85; RESP 18; O2SAT 95
== END 2017-12-22 20:30 | disposition home or self-care (01) ==
PROVIDERS: Emergency Provider Emergency Medicine; Family Provider Family Medicine; PCP Family Medicine
DX: J04.0 Acute laryngitis (principal); I10 Essential (primary) hypertension; E78.00 Pure hypercholesterolemia, unspecified; E66.9 Obesity, unspecified; Z68.43 Body mass index [BMI] 50.0-59.9, adult; Z87.891 Personal history of nicotine dependence; Z79.899 Other long term (current) drug therapy
CPT/HCPCS: 70360; 70490; 99282

== ENCOUNTER 2018-01-17 04:18 | Emergency (ER) | payer OTHER, SELFPAY ==
[2018-01-17 04:19] VITALS: BP 140/107; PULSE 107; RESP 20; TEMP 36.3; O2SAT 95; BMI 50.7
--- NOTE | 2018-01-17 04:30 | RAD_ITS ---
STUDY: X-RAY CHEST REASON FOR EXAM: Female, 52 years old. Difficulty swallowing due to swollen throat. Cough, nasal drainage, catheter chest congestion, headache TECHNIQUE: PA and lateral views of the chest. COMPARISON: CT neck monorail hooker view 12/22/2017 FINDINGS: Subglottic trachea appears narrowed on AP view. Faint opacification right upper lung on frontal view. Linear interstitial changes in the left base probable atelectasis or scarring, unchanged when compared to CT neck monorail hooker film 12/22/2017. There are areas of hyperinflation. There is no demonstrated pleural abnormality. Normal size heart. Normal mediastinum and leigh. Normal visualized pulmonary arteries. Normal visualized aortic arch and descending thoracic aorta. There are diffuse degenerative changes of the visualized thoracic spine. Normal visualized ribs, clavicles, and shoulders. Obesity. RAD/Chest PA and Lateral IMPRESSION: Subglottic tracheal narrowing on AP view seen to a similar degree on previous CT neck monorail hooker view. Scarring versus atelectasis left perihilar lung and parenchyma. Faint opacification right upper lung is indeterminate. An inflammatory process may be present, however there is no confluent pneumonia. Electronically Signed: Kristi Wheeler MD at 5:24 EDT , Service support ,
--- NOTE | 2018-01-17 04:32 | ED.DCSUM_ITS ---
- ER Visit Summary Date of Service: 01/17/18 Chief Complaint: URI symptoms History of Present Illness: The patient is a 52 F nonproductive cough for 5 days , 4 days ago sore throat progressing. Pain with swallowing. No dyspnea. No fevers. Using salt water gargles. Diabetes with fluctuating sugars. On insulin. No voice change. No vomiting or diarrhea. No urinary symptoms. Tolerating oral fluids. Physical Examination: General: Alert and oriented ?3, no acute distress HEENT: Normocephalic, atraumatic. Moist mucosa membranes. TMs normal bilaterally. 2+ symmetric tonsils with minimal erythema exudates. No trismus. Uvula midline. Neck: supple, nontender. No cervical adenopathy. Cardiovascular: Regular rate and rhythm, no murmurs Respiratory: Normal breath sounds, symmetric, no distress Abdomen: Soft, nontender, nondistended Extremities: Nontender, no edema, pulses intact ?4 Neuro: no focal neurological deficits. Test Results: Rapid strep: Negative. chest x-ray: No acute process. blood glucose: 446 Emergency Department Course and Treatment: Patient nontoxic. Rapid strep was negative. Chest x-ray reviewed myself shows no acute process. Patient blood glucose 446. No clinical signs of DKA. She states her sugars waxes and wanes, she is on insulin. The throat symptoms, no trismus, uvula midline, low suspicion for any abscess or epiglottitis. Records noted earlier this month similar presentation had a CT scan of her neck that was negative. Due to elevated glucose, steroids will be held. Discussed with patient, continue salt water gargles, throat lozenges, and monitoring symptoms. Discussed viral syndrome. Patient follow-up with PCP reevaluation, return if any worsening symptoms. Treatment Plan: [] Disposition: Discharge Impression: 1. Acute pharyngitis 2. Viral URI 3. Elevated glucose This note was generated with [employer] dictation software. It may contain incorrect words, spelling, and punctuation that were not noted in review of the chart prior to signing ED Disposition - Plan for ED Patient: Disposition: Home or Assisted Living Chief Complaint: Cold Sx Diagnosis: Acute pharyngitis, Viral upper respiratory infection, Blood glucose elevated Instructions: ED Upper Resp Infec No Abx Tx, ED Pharyngitis Viral Report Pending Referrals: Tj Douglass MD [Primary Care Provider] - 3-5 Days Additional Instructions: Continued symptomatic treatment. Monitor your sugars at home with her insulin. Follow-up with your doctor. Return if any worsening symptoms.
[2018-01-17 05:16] LABS: Bedside Glucose 446 mg/dL (70-110)
[2018-01-17] MEDS: Acetaminophen 500 MG Tablet 1000 MG PO (05:26)
[2018-01-17 05:29] VITALS: PULSE 97; RESP 20; O2SAT 96
== END 2018-01-17 05:30 | disposition home or self-care (01) ==
PROVIDERS: Emergency Provider Emergency Medicine; Family Provider Family Medicine; PCP Family Medicine
DX: J02.8 Acute pharyngitis due to other specified organisms (principal); E11.65 Type 2 diabetes mellitus with hyperglycemia; I10 Essential (primary) hypertension; E78.00 Pure hypercholesterolemia, unspecified; E03.9 Hypothyroidism, unspecified; Z79.4 Long term (current) use of insulin; Z79.899 Other long term (current) drug therapy
CPT/HCPCS: 71046; 82962; 87880; 99283

== ENCOUNTER 2019-02-12 22:17 | Emergency (ER) | payer OTHER, SELFPAY ==
[2019-02-12 22:18] VITALS: BP 124/81; PULSE 105; RESP 18; TEMP 37; O2SAT 99; BMI 44.9
--- NOTE | 2019-02-12 22:24 | ED.RN ---
PT CONTACTS OPERATIONAL REVIEW SERGEANT VIA PHONE CALL. PER OPERATIONAL REVIEW SERGEANT PT IS NOT TO BE DRUG SCREENED AT THIS TIME.
--- NOTE | 2019-02-12 22:25 | RAD_ITS ---
STUDY: X-RAY - RIGHT WRIST REASON FOR EXAM: Female, 53 years old. Right wrist pain after lifting. TECHNIQUE: 3 view(s) of the wrist were obtained. COMPARISON: None. FINDINGS: There is demineralization of the radius and ulna. Normal radiocarpal articulation. Normal distal radioulnar articulation. Normal carpal bones. Normal carpal articulations. Ossicles adjacent to the ulnar styloid are present. Normal carpometacarpal articulation of the thumb. Normal second through fifth carpometacarpal articulations. There is demineralization of the metacarpal bones. The soft tissue structures are unremarkable. RAD/Wrist min 3 Views IMPRESSION: Diffuse demineralization with no evidence of acute fracture. Electronically Signed: Anil Capone DO at 22:41 EDT , Service support ,
--- NOTE | 2019-02-12 23:51 | ED.DCSUM_ITS ---
- ER Visit Summary Date of Service: 02/12/19 Chief Complaint: Right wrist pain History of Present Illness: The patient is a 53 F who presents with right wrist pain. 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 No paresthesias weakness loss of function. Physical Examination: Afebrile heart rate 105 vitals otherwise unremarkable Heart regular rate and rhythm Lungs clear Patient has some tenderness over the ulnar side of the right wrist no deformity no soft tissue swelling no focal bony tenderness easily palpable radial pulse brisk capillary refill normal sensation active full range of motion Test Results: Wrist x-ray shows no fracture Emergency Department Course and Treatment: Patient was given a Velcro wrist splint and instructed on supportive care. She was discharged. Treatment Plan: [] Disposition: Discharge Impression: Right wrist sprain This note was generated with [employer] dictation software. It may contain incorrect words, spelling, and punctuation that were not noted in review of the chart prior to signing ED Disposition - Plan for ED Patient: Referrals: Tj Douglass MD [Primary Care Provider] -
--- NOTE | 2019-02-12 23:52 | ED.DEP ---
ED Disposition - Plan for ED Patient: Instructions: Wrist Sprain Referrals: Tj Douglass MD [Primary Care Provider] - [facility] [GROUP OF PHYSICIANS] -
[2019-02-13 00:02] VITALS: RESP 16
--- NOTE | 2019-02-13 00:03 | ED.RN ---
REVIEWED D/C INSTRUCTIONS, FOLLOW UP CARE, AND S/S THAT WOULD WARRANT A RETURN TO THE ED WITH PT. PT VERBALIZED AN UNDERSTANDING AND DENIES FURTHER QUESTIONS FOR THIS RN. PT SKIN P/W/D, RESP EVEN AND UNLABORED, PT A&O X 3, NO DISTRESS NOTED. PT AMBULATED OUT OF ED, GAIT STEADY.
== END 2019-02-13 00:04 | disposition home or self-care (01) ==
PROVIDERS: Emergency Provider Emergency Medicine; Family Provider Family Medicine; PCP Family Medicine
DX: S63.501A Unspecified sprain of right wrist, initial encounter (principal); X50.9XXA Other and unspecified overexertion or strenuous movements or postures, initial encounter; Y93.89 Activity, other specified; Y92.9 Unspecified place or not applicable; Y99.0 Civilian activity done for income or pay; I10 Essential (primary) hypertension; E11.9 Type 2 diabetes mellitus without complications; Z79.4 Long term (current) use of insulin; Z79.899 Other long term (current) drug therapy
CPT/HCPCS: 73110; 99283

== ENCOUNTER 2019-04-04 04:51 | Emergency (ER) | payer OTHER, SELFPAY ==
[2019-02-27 11:04] VITALS: BMI 43.1
[2019-04-04 04:52] VITALS: BP 114/68; PULSE 83; RESP 16; TEMP 36.6; O2SAT 96; BMI 46.0
--- NOTE | 2019-04-04 05:19 | ED.VISSUMM ---
- ER Visit Summary Date of Service: 04/04/19 Chief Complaint: Fall History of Present Illness: The patient is a 53 F who presents after a fall that occurred yesterday. Patient states she was walking in her house when she tripped and fell. Patient hit her head on a coffee table. Patient denies any loss of consciousness. Patient denies any paresthesias or weakness. Patient describes the pain as aching. Patient denies any other injuries. Physical Examination: Vital signs are stable. Patient is afebrile. Patient is in no acute distress. Cranial nerves II through XII are intact. Strength is 5/5 bilaterally in the upper and lower extremities. There are no sensory deficits noted. Pupils are equal, round, and reactive to light bilaterally. Extraocular muscles are intact. Neck is supple. Trachea is midline. There is no JVD or lymphadenopathy noted. Oral mucosa is pink and moist. Oropharynx is clear. Heart was regular rate and rhythm. Lungs are clear and equal bilaterally. Emergency Department Course and Treatment: Patient was advised that this is a closed head injury and contusion to her scalp. Patient does not need CT scanning at this time. Patient was instructed to use ice to the area. Patient was instructed to take Tylenol or ibuprofen as needed for pain. Patient was instructed to follow-up with her primary care physician in 5 to 7 days. Patient was given head injury instructions. Patient was instructed return if worse in any way. Patient understood and was agreeable with the plan. All questions were answered. Disposition: Discharge home Impression: Head contusion This note was generated with [employer] dictation software. It may contain incorrect words, spelling, and punctuation that were not noted in review of the chart prior to signing ED Disposition - Plan for ED Patient: Disposition: Home or Assisted Living Diagnosis: Head contusion, Morbid obesity Instructions: HEAD INJURY, No Wake-Up (Adult) Referrals: Tj Douglass MD [Primary Care Provider] - 5-7 Days
== END 2019-04-04 05:31 | disposition home or self-care (01) ==
LOC: ED 05:29
PROVIDERS: Emergency Provider Emergency Medicine; Family Provider Family Medicine; PCP Family Medicine
DX: S00.03XA Contusion of scalp, initial encounter (principal); W01.0XXA Fall on same level from slipping, tripping and stumbling without subsequent striking against object, initial encounter; Y93.01 Activity, walking, marching and hiking; Y92.009 Unspecified place in unspecified non-institutional (private) residence as the place of occurrence of the external cause; E66.01 Morbid (severe) obesity due to excess calories; E11.9 Type 2 diabetes mellitus without complications; E03.9 Hypothyroidism, unspecified; F32.9 Major depressive disorder, single episode, unspecified; Z68.42 Body mass index [BMI] 45.0-49.9, adult; Z79.4 Long term (current) use of insulin; Z79.84 Long term (current) use of oral hypoglycemic drugs; Z79.899 Other long term (current) drug therapy
CPT/HCPCS: 99282

== ENCOUNTER 2019-10-06 14:23 | Observation (INO) | payer OTHER, SELFPAY ==
[2019-10-06 14:25] VITALS: BP 162/104; PULSE 100; RESP 18; TEMP 36.6; O2SAT 100; BMI 45.9
[2019-10-06 14:39] VITALS: BP 95/59; PULSE 89; RESP 18; O2SAT 99
--- NOTE | 2019-10-06 14:40 | RAD_ITS ---
STUDY: X-RAY CHEST REASON FOR EXAM: Female, 55 years old. GENERAL ILLNESS, ABDOMEN PAIN, SORE THROAT TECHNIQUE: Single AP portable view of the chest. COMPARISON: None. FINDINGS: Mild degree of increased markings at the left lung base suggestive of early infiltrate and/or atelectasis. Mild thickening of the right minor fissure. There is no demonstrated pleural abnormality. Normal size heart. Normal mediastinum and leigh. Normal visualized pulmonary arteries. Normal visualized aortic arch and descending thoracic aorta. Normal visualized thoracic spine. Normal visualized ribs, clavicles, and shoulders. There is no demonstrated abnormality of the visualized soft tissue structures of the upper abdomen. RAD/Chest 1 View (Portable) IMPRESSION: Mild increased markings at the left base suggestive of atelectasis and/or early infiltrate. Electronically Signed: Moy Rivera, at 15:07 EDT , Service support ,
[2019-10-06 14:41] LABS: Bedside Glucose > 500 mg/dL (70-110)
[2019-10-06 14:58] LABS: Absolute Lymphocyte Count 2.16 X10^3/uL (0.83-4.51); Absolute Neutrophil Count 4.7 X10^3/uL (2.0-7.7); Basophil# 0.07 X10^3/uL; Basophil% 0.9 % (0-1); Eosinophil# 0.17 X10^3/uL; Eosinophils% 2.2 % (0-5); Hematocrit 41.7 % (37-47); Hemoglobin 13.3 g/dL (12.0-15.0); Lymphocyte # 2.16 X10^3/ul (4.0); Lymphocyte % 27.9 % (19-41); Mean Corp Hgb Conc 31.9 g/dL (32-36); Mean Corpuscular Hgb 25.3 pg (27.0-32.0); Mean Corpuscular Volume 79.4 fL (81-99); Mean Platelet Vol. 10.2 fl (6.2-12.0); Monocyte# 0.37 X10^3/uL; Monocyte% 4.8 % (0-10); NRBC Flagged by Analyzer 0 % (0-5); Neutrophil # 4.73 X10^3/uL (2.7-7.7); Platelet Count 216 K/mm3 (150-450); RBC Distribution Width CV 15.1 % (11.6-14.6); RBC Distribution Width SD 42.8 fl (35.1-43.9); Red Blood Count 5.25 M/mm3 (4.2-5.4); White Blood Count 7.8 K/mm3 (4.4-11.0)
[2019-10-06 15:16] LABS: Bacteria 0 SEEN /hpf (None Seen); Mucous, Urine 0 SEEN /hpf (<or=2+); Red Blood Cells-Urine 0 SEEN /hpf (0-5)
[2019-10-06 15:18] LABS: Color, Urine Yellow (Yellow); Glucose, Dipstick 1000 mg/dl (Normal); Ketone-Dipstick Negative (Negative); Leukocyte Esterase-Dipstick 25 /ul (Negative); Nitrite-Dipstick Negative (Negative); Occult Blood-Urine 25 /ul (Negative); Protein-Dipstick Negative (Negative); Urine Bilirubin Dipstick Negative (Negative); Urine Clarity Clear (Clear); Urine Urobilinogen Normal (Normal); Urine pH 6.5 (5.0 - 8.0)
[2019-10-06 15:18] LABS: ALB/GLOB Ratio 0.6 RATIO (0.9-2.4); AST(SGOT) 44 U/L (15-37); Alanine Aminotransfer ALT/SGPT 49 U/L (13-56); Albumin, Serum 3.2 g/dL (3.2-5.0); Alkaline Phosphatase 256 U/L (45-117); Anion Gap 7 (5-15); BUN 11 mg/dL (7-18); BUN/Creat Ratio 9.9 RATIO (10-20); Calcium,Total 8.9 mg/dL (8.5-10.1); Chloride 89 mmol/L (98-107); Creatinine, Serum 1.11 mg/dL (0.55-1.02); EST Glomerular Filtration Rate 54 mL/min (>60); Est Glom Filt Rate - Afr Amer 66 mL/min (>60); Estimated Creatinine Clearance 43.72 ml/min; Globulin 5.7 g/dL (2.2-4.2); Glucose 651 mg/dL (74-106); Protein, Total 8.9 g/dL (6.4-8.2); Sodium Level 124 mmol/L (136-145)
[2019-10-06] MEDS: 0.9% Normal Saline 1,000 ML 1000 ML IV (15:18)
--- NOTE | 2019-10-06 15:19 | ED.RN ---
lab called bs of [phone]. dr pereyra
[2019-10-06 15:24] LABS: Squamous Epithelial Cells - UA 0-5 SEEN /hpf (5-10); Transitional Epithelial - Ur 0-5 SEEN /hpf (0-5); White Blood Cells 0-5 SEEN /hpf (0-5)
--- NOTE | 2019-10-06 15:47 | ED.VISSUMM ---
- ER Visit Summary Date of Service: 10/06/19 Chief Complaint: [Hyperglycemia] History of Present Illness: The patient is a 53 F [resents to the emergency department complaint of elevated blood sugars for the last 2 weeks. Patient also is been having some vague abdominal discomfort and back pain for the last 2 weeks. Patient has had some mild nausea but no vomiting. She describes urinary frequency. Patient is had some dysuria. She does describe some cough that she is had for over a month. Patient states that she took 60 units of her Humalog around noon today. Her blood sugars at home have been reading in the 300s. Patient denies any chest pain or shortness of breath. Patient has history of diabetes. She has had prior cholecystectomy.] Physical Examination: [HEENT-PERRLA, EOMI. Cranial nerves II through XII grossly intact. TMs clear. Mucous membranes moist. No adenopathy. Cardiovascular-regular rate and rhythm without murmur or ectopy Lungs-clear to auscultation, chest wall stable without crepitus or subcu emphysema Abdomen-normoactive bowel sounds, soft. Patient has some mild diffuse tenderness. Patient is obese. There is no rebound, rigidity, or peritoneal signs. No masses palpated however body habitus is large. Back exam-no significant tenderness on exam. No erythema or warmth noted. Negative straight leg raises. Deep tendon reflexes are plus 2 out of 4 bilaterally the patella and Achilles. Patient has normal 5 extension. Extremities-intact ?4, normal range of motion, normal pulses, atraumatic] Test Results: CBC with differential obtained showed white blood cell count of 7.8, hemoglobin 13, hematocrit 42, placed 216. Chemistry showed a sodium 124, potassium 4.0, chloride 89. Glucose was 651. BUN 11 and creatinine 1.11. Alk phos was 256. ALT was 49 and AST was 49. Urinalysis was showed large glucose without signs of infection. Acetone was negative. [Lipase ordered and pending.] Emergency Department Course and Treatment: [Patient had an IV line established and she was written for a liter mostly fluid bolus.] Treatment Plan: [Case was discussed with hospitalist will evaluate patient for admission] Disposition: [Admit] Impression: [Hyperglycemia-uncontrolled diabetic Hyponatremia] This note was generated with Aut[employer] software. It may contain incorrect words, spelling, and punctuation that were not noted in review of the chart prior to signing ED Disposition - Plan for ED Patient: Referrals: Tj Douglass MD [Primary Care Provider] -
--- NOTE | 2019-10-06 15:47 | NURSING ---
MED SURG OBS PADDY HYPERGLYCEMIA, UNCONTROLLED , HYPONATREMIA
[2019-10-06 16:05] VITALS: BP 98/58; PULSE 92; RESP 18; TEMP 36.8; O2SAT 98
[2019-10-06 16:05] LABS: Lipase 245 U/L (73-393)
--- NOTE | 2019-10-06 16:06 | PCM.HP.STD ---
History of Present Illness Date of Admission: 10/06/19 Chief Complaint: hyperglycemia The patient is a 53 year old F Wendy with hyperglycemia. Over the past several months, patient blood sugars been persistently elevated and had a hemoglobin A1c of over 12. Patient states that she has been taking her medications as prescribed and has been following with her primary care doctor, Dr. Douglass, as well as seeing a pharmacist to ensure that she is taking her medications appropriately. Patient also saw dietitian about a month ago. Despite seeing a dietitian and seeing primary care for her diabetes, patient still continues to drink regular Cokes. Asked why she continues to do so despite never having been told that she should she does not really have an answer. [] Patient denies any recent travel nor any sick contacts that she is aware of. Past Medical History Past Medical History (Chronic Problems): Chronic Problems (Last Reviewed 02/27/19 @ 11:04 by Rylee Serra) Hypertension (Chronic) Hypothyroidism (Chronic) Hyperlipidemia (Chronic) Morbid obesity (Chronic) Medical History: Medical History (Last Reviewed 10/06/19 @ 16:[address] Velasquez Vivas, DO) Anemia D64.9 Arthritis M19.90 Back pain M54.9 Bloody stool K92.1 Diabetes E11.9 SOB (shortness of breath) R06.02 Shoulder pain M25.519 Thyroid disease E07.9 Asthma J45.909 Fibromyalgia M79.7 Hay fever J30.1 History of frequent headaches History of kidney cancer Z85.528 Kidney disease N28.9 Lupus L93.0 Thyroid disease E07.9 Allergies codeine Allergy (Verified 04/04/19 04:52) Angioedema Penicillins Allergy (Verified 04/04/19 04:52) Rash Sulfa (Sulfonamide Antibiotics) Allergy (Verified 04/04/19 04:52) Rash sulfamethoxazole [Bactrim] Allergy (Verified 04/04/19 04:52) Unknown trimethoprim [Bactrim] Allergy (Verified 04/04/19 04:52) Unknown metformin Adverse Reaction (Verified 04/04/19 04:52) Upset Stomach Home Medications: Ambulatory Orders Medication Instructions Recorded albuterol sulfate 2.5 mg INHALATION Q4H PRN PRN 04/11/18 lisinopril 2.5 mg tablet 2.5 mg PO DAILY 04/11/18 Fluoxetine HCl 40 mg PO DAILY 02/12/19 Insulin Degludec [Tresiba 110 units SUBCUT DAILY 02/12/19 Flextouch U-100] Sitagliptin Phosphate [Januvia] 100 mg PO DAILY 02/12/19 Insulin Lispro [Humalog KwikPen] 0 units SQ TIDCM 04/04/19 Atorvastatin Calcium [Lipitor] 20 mg PO QHS 10/06/19 Levothyroxine Sodium [Synthroid] 200 mcg PO DAILY 10/06/19 Levothyroxine [Synthroid] 150 mcg PO DAILY 10/06/19 Surgical History: Surgical History (Last Reviewed 10/06/19 @ 16:[address] Velasquez Vivas DO) History of hysterectomy Z90.710 History of nephrectomy Z90.5 History of tubal ligation Z98.51 Surgical History: cholecystectomy, dilatation and curettage Psychiatric History: No pertinent psych hx SODA CLERK History: No pertinent SODA CLERK history Smoking Status: Former smoker - *Family History Maternal Family History: Family History (Last Reviewed 10/06/19 @ 16:[address] Velasquez Vivas DO) Other Cancer History Items: Cancer - breast, Diabetes Paternal Family History: Family History (Last Reviewed 10/06/19 @ 16:[address] Velasquez Vivas DO) Other Cancer History Items: Cancer - brain, kidney Review of Systems Constitutional: Denies: Anorexia, Chills, Fever, Night Sweats Eyes: Denies: Blurred vision, Double vision HEENT: Denies: Head Aches, Sinus Congestion, Sinus Drainage Cardiovascular: Denies: Chest Pain, Palpitations Respiratory: Denies: Cough, Shortness of breath at rest, Sputum production Gastrointestinal: Reports: Abdominal Pain, Nausea. Denies: Vomiting Genitourinary: Denies: Dysuria Musculoskeletal: Reports: Back Pain. Denies: Joint Pain, Joint Tenderness Skin: Denies: Rash, Wounds Neurological: Denies: Numbness, Tingling, Focal weakness Psychiatric: Denies: Anxiety, Depression Hematologic/ Lymphatic: Denies: Easy Bruising, Easy Bleeding, Hx of blood clot Comment: All review of systems were negative except as mentioned above in the history of present illness and the other review of systems. VTE Information - Inpt Only VTE Present on Admission: No VTE Mechan Device Prophylaxis: None VTE Pharm Prophylaxis ordered?: No Reason prophylaxis not ordered:: Treatment Not Indicated - Physical Exam Vitals/I&O's: Vital Signs Temp Pulse Resp BP Pulse Ox 36.6 C 89 18 95/59 L 99 10/06/19 14:25 10/06/19 14:39 10/06/19 14:39 10/06/19 14:39 10/06/19 14:39 Oxygen Delivery Method Room Air Weight: 110.223 kg Body Mass Index (BMI) 45.9 Finger Stick Blood Glucose 446 General: Alert, No apparent distress HEENT: Atraumatic, Normocephalic Oral: Moist Mucosa, No Gingival or Mucosal Lesions/ Ulcerations Neck: No Nodes, Trachea Midline Lungs: Clear to auscultation, Normal air movement, No rhonchi, No wheeze Cardiovascular: Regular rate, Regular Rhythm, Normal S1, Normal S2, No murmurs Abdomen: Bowel Sounds Present, Soft, Non Tender, Non-Distended, No Hepato-splenomegaly Extremities: No edema, No Calf Tenderness Skin: No rashes, No breakdown Musculoskeletal: - - Reproducible paraspinal lumbar tenderness Psych/Mental Status: Appropriate, Flat Affect Laboratory Results 10/06/19 14:35: POC Glucose > 500 H* 10/06/19 14:45: WBC 7.8, RBC 5.25, Hgb 13.3, Hct 41.7, MCV 79.4 L, MCH 25.3 L, MCHC 31.9 L, RDW Std Deviation 42.8, RDW Coeff of [place] 15.1 H, Plt Count 216, MPV 10.2, Immature Gran % (Auto) 3.200 H, Neut % (Auto) 61.0, Lymph % (Auto) 27.9, [place] % (Auto) 4.8, Eos % (Auto) 2.2, Baso % (Auto) 0.9, Absolute Neuts (auto) 4.7, Absolute Lymphs (auto) 2.16, Nucleated RBC % 0 10/06/19 14:45: Sodium 124 L, Potassium 4.0, Chloride 89 L, Carbon Dioxide 28.0, Anion Gap 7, BUN 11, Creatinine 1.11 H, Estim Creat Clear Calc 43.72, Est GFR (MDRD) Af Amer 66, Est GFR (MDRD) Non-Af 54 L, BUN/Creatinine Ratio 9.9 L, Glucose 651 H*, Calcium 8.9, Total Bilirubin 0.40, AST 44 H, ALT 49, Alkaline Phosphatase 256 H, Total Protein 8.9 H, Albumin 3.2, Globulin 5.7 H, Albumin/Globulin Ratio 0.6 L 10/06/19 14:45: Acetone Level NEGATIVE 10/06/19 14:45: Lipase 245 10/06/19 15:00: Urine Color Yellow, Urine Clarity Clear, Urine pH 6.5, Ur Specific [place] 1.010, Urine Protein Negative, Urine Glucose (UA) 1000 H, Urine Ketones Negative, Urine Occult Blood 25 H, Urine Nitrite Negative, Urine Bilirubin Negative, Urine Urobilinogen Normal, Ur Leukocyte Esterase 25 H, Urine RBC 0 SEEN, Urine WBC 0-5 SEEN, Ur Squamous Epith Cells 0-5 SEEN, Ur Transition Epith Cell 0-5 SEEN, Urine Bacteria 0 SEEN, Urine Mucus 0 SEEN Clinical Impression(s) from Imaging Studies Chest X-Ray 10/06/19 14:40 IMPRESSION: Mild increased markings at the left base suggestive of atelectasis and/or early infiltrate. Electronically Signed: Moy Rivera, at 15:07 EDT , Service support , Assessment/Plan All Active Problems (Last Reviewed 02/27/19 @ 11:04 by Rylee Serra) Unspecified sprain of right wrist, initial encounter (Acute) Low back strain (Acute) Hyperosmolar non-ketotic state in patient with type 2 diabetes mellitus (Acute) 1. Hyperglycemia: Patient is not in a hyperosmolar state nor is she in diabetic ketoacidosis. Patient is just had a persistently elevated blood sugar over months now and decides now to present to the hospital. Explained to the patient that we are just can be continuing her home regimen and make make further adjustments depending on how her blood sugar plays out. Patient states that she is compliant though she is clearly not compliant with her diet as she readily endorses that she drinks regular sodas. So we will put her on a restricted diet of 1800 kcal/day, continue with her home regimen of insulin and have nutrition see her. I did advise patient to follow-up with endocrinology. Patient with her inability to follow a remotely calorie restricted diet certainly limits her ability and I think seeing an sociology research assistant would be benefit for her. That can be done as an outpatient. Signed scale insulin. Check an A1c. I did encourage patient to take an active role in regards to her care. Specify that she needs to take ownership in regards to her diet and understand that that is complicating her overall treatment of her diabetes. 2. Hypoglycemia: This is likely pseudo-hyponatremia due to the severe hyperglycemia. Monitor. IV fluids. 3. VTE prophylaxis: Low risk as patient is observation. 4. Advanced care planning: Patient is full CODE STATUS. OBSV E&M: 44641 Initial observation care L2
[2019-10-06 16:27] VITALS: BMI 45.6
[2019-10-06 16:32] VITALS: O2SAT 97
[2019-10-06 16:36] VITALS: BMI 45.7
[2019-10-06] MEDS: 0.9% Normal Saline 1,000 ML 200 ML IV (16:47)
[2019-10-06 16:49] LABS: Hemoglobin A1c 13.8 % (4.2-6.3)
[2019-10-06 16:57] VITALS: BP 100/40; PULSE 84; RESP 18; TEMP 36.7; O2SAT 98
[2019-10-06] MEDS: Insulin Lispro 100 UNIT/ML INSULN.PEN 30 UNIT SC (17:53)
[2019-10-06] MEDS: Insulin Lispro 100 UNIT/ML INSULN.PEN SC (17:56)
[2019-10-06 20:26] VITALS: BP 104/55; PULSE 97; RESP 18; TEMP 37; O2SAT 95
[2019-10-06] MEDS: Atorvastatin Calcium 20 MG Tablet PO (21:11)
[2019-10-07 02:31] VITALS: BP 121/76; PULSE 85; RESP 18; TEMP 36.5; O2SAT 99
[2019-10-07] MEDS: Levothyroxine 175 MCG Tablet 350 MCG PO (05:23)
[2019-10-07 05:36] LABS: Anion Gap 4 (5-15); BUN 10 mg/dL (7-18); Calcium,Total 8.4 mg/dL (8.5-10.1); Chloride 98 mmol/L (98-107); Creatinine, Serum 0.62 mg/dL (0.55-1.02); EST Glomerular Filtration Rate 106 mL/min (>60); Est Glom Filt Rate - Afr Amer 129 mL/min (>60); Estimated Creatinine Clearance 80.09 ml/min; Glucose 346 mg/dL (74-106); Potassium 3.9 mmol/L (3.5-5.1); Sodium Level 131 mmol/L (136-145)
[2019-10-07 09:10] VITALS: BP 100/69; PULSE 93; RESP 16; TEMP 36.6; O2SAT 98
[2019-10-07] MEDS: Insulin Lispro 100 UNIT/ML INSULN.PEN 30 UNIT SC (09:10)
[2019-10-07] MEDS: FLUoxetine 20 MG Capsule 40 MG PO (09:10)
[2019-10-07] MEDS: LINAGLIPTIN 5 MG TABLET PO (09:10)
[2019-10-07] MEDS: Insulin Lispro 100 UNIT/ML INSULN.PEN SC ×3 (09:11→17:09)
[2019-10-07] MEDS: Lisinopril 2.5 MG Tablet PO (09:16)
[2019-10-07] MEDS: Insulin Lispro 100 UNIT/ML INSULN.PEN 40 UNIT SC ×2 (12:11→17:09)
[2019-10-07 14:35] VITALS: BP 105/64; PULSE 81; RESP 18; TEMP 36.6; O2SAT 95
--- NOTE | 2019-10-07 14:55 | PN_ITS ---
Reason for Visit: Follow-up on hyperglycemia Subjective: Patient was seen and examined. She denied any new complaints. Blood sugars are uncontrolled. Objective: Physical exam: General: Alert, No apparent distress HEENT: Atraumatic, Normocephalic Oral: Moist Mucosa, No Gingival or Mucosal Lesions/ Ulcerations Neck: No Nodes, Trachea Midline Lungs: Clear to auscultation, Normal air movement, No rhonchi, No wheeze Cardiovascular: Regular rate, Regular Rhythm, Normal S1, Normal S2, No murmurs Abdomen: Bowel Sounds Present, Soft, Non Tender, Non-Distended, No Hepato- splenomegaly Extremities: No edema, No Calf Tenderness Skin: No rashes, No breakdown Musculoskeletal: - - Reproducible paraspinal lumbar tenderness Psych/Mental Status: Appropriate, Flat Affect Vitals/I&O's: Vital Signs Temp Pulse Resp BP Pulse Ox 97.8 F 81 18 105/64 95 10/07/19 14:35 10/07/19 14:35 10/07/19 14:35 10/07/19 14:35 10/07/19 14:35 Oxygen Delivery Method Room Air Weight: 109.633 kg Body Mass Index (BMI) 45.6 Finger Stick Blood Glucose 379 Intake and Output for Last 24 Hours 10/05/19 10/06/19 10/07/19 23:59 23:59 23:59 Intake Total 1999 300 / 300 Output Total 1999 Balance 1999 -1700 / -1700 Laboratory Results 10/06/19 14:45: WBC 7.8, RBC 5.25, Hgb 13.3, Hct 41.7, MCV 79.4 L, MCH 25.3 L, MCHC 31.9 L, RDW Std Deviation 42.8, RDW Coeff of [place] 15.1 H, Plt Count 216, MPV 10.2, Immature Gran % (Auto) 3.200 H, Neut % (Auto) 61.0, Lymph % (Auto) 27.9, [place] % (Auto) 4.8, Eos % (Auto) 2.2, Baso % (Auto) 0.9, Absolute Neuts (auto) 4.7, Absolute Lymphs (auto) 2.16, Nucleated RBC % 0 10/06/19 14:45: Sodium 124 L, Potassium 4.0, Chloride 89 L, Carbon Dioxide 28.0, Anion Gap 7, BUN 11, Creatinine 1.11 H, Estim Creat Clear Calc 43.72, Est GFR (MDRD) Af Amer 66, Est GFR (MDRD) Non-Af 54 L, BUN/Creatinine Ratio 9.9 L, Glucose 651 H*, Calcium 8.9, Total Bilirubin 0.40, AST 44 H, ALT 49, Alkaline Phosphatase 256 H, Total Protein 8.9 H, Albumin 3.2, Globulin 5.7 H, Albumin/Globulin Ratio 0.6 L 10/06/19 14:45: Acetone Level NEGATIVE 10/06/19 14:45: Lipase 245 10/06/19 14:45: Hemoglobin A1c 13.8 H 10/06/19 15:00: Urine Color Yellow, Urine Clarity Clear, Urine pH 6.5, Ur Specific [place] 1.010, Urine Protein Negative, Urine Glucose (UA) 1000 H, Urine Ketones Negative, Urine Occult Blood 25 H, Urine Nitrite Negative, Urine Bilirubin Negative, Urine Urobilinogen Normal, Ur Leukocyte Esterase 25 H, Urine RBC 0 SEEN, Urine WBC 0-5 SEEN, Ur Squamous Epith Cells 0-5 SEEN, Ur Transition Epith Cell 0-5 SEEN, Urine Bacteria 0 SEEN, Urine Mucus 0 SEEN 10/07/19 05:10: Sodium 131 L, Potassium 3.9, Chloride 98, Carbon Dioxide 29.0, Anion Gap 4 L, BUN 10, Creatinine 0.62, Estim Creat Clear Calc 80.09, Est GFR (MDRD) Af Amer 129, Est GFR (MDRD) Non-Af 106, BUN/Creatinine Ratio 16.0, Glucose 346 H, Calcium 8.4 L Current Medications Acetaminophen (Tylenol) 650 mg PO Q6H PRN PRN PRN Reason: Pain Score 1-10/Temp > 100.7 F Albuterol Sulfate (Ventolin Aerosols) 2.5 mg INHALATION Q4H PRN PRN PRN Reason: SOB &/OR WHEEZING Atorvastatin Calcium (Lipitor) 20 mg PO QHS [facility] Last Admin: 10/06/19 21:11 Dose: 20 mg Documented by: Dextrose (D50w Syringe) 0 gm IV X1 PRN; Protocol PRN Reason: Hypoglycemia Fluoxetine HCl (Prozac) 40 mg PO DAILY [facility] Last Admin: 10/07/19 09:10 Dose: 40 mg Documented by: Glucagon () 1 mg IM .X1 PRN PRN Reason: Hypoglycemia Guaifenesin (Robitussin) 20 ml PO Q4H PRN PRN PRN Reason: COUGH Sodium Chloride () 1,000 mls @ 100 mls/hr IV .Q10H [facility] Stop: 10/08/19 10:54 Insulin Glargine (Lantus (Bkc)) 110 units SC 1100 [facility] Last Admin: 10/07/19 12:11 Dose: 110 units Documented by: Insulin Human Lispro (Humalog Kwikpen (Bk)) 0 unit SC TIDAC [facility]; Protocol Last Admin: 10/07/19 12:11 Dose: 14 u Documented by: Insulin Human Lispro (Humalog Kwikpen (Bk)) 40 unit SC TIDCM [facility] Last Admin: 10/07/19 12:11 Dose: 40 units Documented by: Levothyroxine Sodium (Synthroid) 350 mcg PO DAILY@0600 [facility] Last Admin: 10/07/19 05:23 Dose: 350 mcg Documented by: Linagliptin (Tradjenta) 5 mg PO DAILY [facility] Last Admin: 10/07/19 09:10 Dose: 5 mg Documented by: Lisinopril (Zestril) 2.5 mg PO DAILY [facility] Last Admin: 10/07/19 09:16 Dose: 2.5 mg Documented by: Ondansetron HCl (Zofran) 4 mg IV Q8H PRN PRN PRN Reason: NAUSEA/VOMITING Sodium Chloride () 10 - 40 ml IV UD PRN PRN Reason: SALINE FLUSH STROKE Vital Signs/Narrative: Vital Signs Temp Pulse Resp BP Pulse Ox 10/07/19 14:35 97.8 F 81 18 105/64 95 Medical Necessity - Tobacco Use Smoking Status: Former smoker Assessment/Plan All Active Problems (Last Reviewed 10/06/19 @ 16:[address] Velasquez Vivas, DO) Unspecified sprain of right wrist, initial encounter (Acute) Low back strain (Acute) Hyperosmolar non-ketotic state in patient with type 2 diabetes mellitus (Acute) 1. Hyperglycemia in a known type II DM patient, sugars are uncontrolled. HbA1c is 13.8 Changes made to her insulin; increase her Lantus to 115 units QHS, increase pre- meal insulin to 40 units 3 times daily, continue with insulin sliding scale Continue on Tradjenta Will benefit from visual presentation manager on discharge 2. Pseudohyponatremia, improved with IV hydration, will continue hydration 3. Hypothyroidism, on levothyroxine 4. Hyperlipidemia, on statin 5. Anxiety/depression, continue on Prozac 6. DVT PPx- early ambulation Inpatient E&M: [id number] Subs Hosp L2
[2019-10-07] MEDS: 0.9% Saline Lock 10 ML Syringe IV (14:58)
[2019-10-07] MEDS: 0.9% Normal Saline 1,000 ML 100 ML IV (14:58)
[2019-10-07] MEDS: Acetaminophen 325 MG Tablet 650 MG PO (19:52)
[2019-10-07 20:00] VITALS: BP 126/79; PULSE 86; RESP 18; TEMP 36.6; O2SAT 97
[2019-10-07] MEDS: Atorvastatin Calcium 20 MG Tablet PO (21:06)
--- NOTE | 2019-10-07 21:53 | NURSING ---
Aldo from lab called and talked to me at length about this pt. I verified with the pt that her and medical record number are correct. It is felt that pt's information is trying to cross over to another Marika Montejo with a of [birth year] & . He talked to registration but they do not have the power to fix the problem. Aldo wants us to continue to use downtime forms and he will fix the issue on 10/08/19.
[2019-10-08] MEDS: 0.9% Normal Saline 1,000 ML 100 ML IV (00:56)
[2019-10-08 02:16] VITALS: BP 111/66; PULSE 77; RESP 18; TEMP 36.7; O2SAT 97
[2019-10-08] MEDS: Levothyroxine 175 MCG Tablet 350 MCG PO (05:30)
[2019-10-08] MEDS: Insulin Lispro 100 UNIT/ML INSULN.PEN SC ×3 (08:07→16:54)
[2019-10-08] MEDS: Insulin Lispro 100 UNIT/ML INSULN.PEN 40 UNIT SC ×3 (08:07→16:55)
[2019-10-08 08:55] VITALS: BP 116/51; PULSE 95; RESP 16; TEMP 36.5; O2SAT 98
[2019-10-08] MEDS: FLUoxetine 20 MG Capsule 40 MG PO (08:57)
[2019-10-08] MEDS: Lisinopril 2.5 MG Tablet PO (08:57)
[2019-10-08] MEDS: LINAGLIPTIN 5 MG TABLET PO (08:57)
[2019-10-08] MEDS: Acetaminophen 325 MG Tablet 650 MG PO ×2 (14:24→21:00)
[2019-10-08 14:25] VITALS: BP 121/62; PULSE 83; RESP 18; TEMP 36.5; O2SAT 96
--- NOTE | 2019-10-08 17:18 | PCM.PN.HOSP ---
Reason for Visit: Follow-up on hyperglycemia Subjective: New complaints. Feels improved. Blood sugars are better. Objective: Physical exam: General: Alert, No apparent distress HEENT: Atraumatic, Normocephalic Oral: Moist Mucosa, No Gingival or Mucosal Lesions/ Ulcerations Neck: No Nodes, Trachea Midline Lungs: Clear to auscultation, Normal air movement, No rhonchi, No wheeze Cardiovascular: Regular rate, Regular Rhythm, Normal S1, Normal S2, No murmurs Abdomen: Bowel Sounds Present, Soft, Non Tender, Non-Distended, No Hepato-splenomegaly Extremities: No edema, No Calf Tenderness Skin: No rashes, No breakdown Musculoskeletal: - - Reproducible paraspinal lumbar tenderness Psych/Mental Status: Appropriate, Flat Affect Vitals/I&O's: Vital Signs Temp Pulse Resp BP Pulse Ox 97.7 F L 83 18 121/62 H 96 10/08/19 14:25 10/08/19 14:25 10/08/19 14:25 10/08/19 14:25 10/08/19 14:25 Oxygen Delivery Method Room Air Weight: 109.633 kg Body Mass Index (BMI) 45.6 Finger Stick Blood Glucose 186 Intake and Output for Last 24 Hours 10/06/19 10/07/19 10/08/19 23:59 23:59 23:59 Intake Total 1999 1400 / 1400 2426.67 / 2426.67 Output Total 2650 / 2650 2200 / 2200 Balance 1999 -1250 / -1250 226.67 / 226.67 Current Medications Acetaminophen (Tylenol) 650 mg PO Q6H PRN PRN PRN Reason: Pain Score 1-10/Temp > 100.7 F Last Admin: 10/08/19 14:24 Dose: 650 mg Documented by: Albuterol Sulfate (Ventolin Aerosols) 2.5 mg INHALATION Q4H PRN PRN PRN Reason: SOB &/OR WHEEZING Atorvastatin Calcium (Lipitor) 20 mg PO QHS [facility] Last Admin: 10/07/19 21:06 Dose: 20 mg Documented by: Dextrose (D50w Syringe) 0 gm IV X1 PRN; Protocol PRN Reason: Hypoglycemia Fluoxetine HCl (Prozac) 40 mg PO DAILY [facility] Last Admin: 10/08/19 08:57 Dose: 40 mg Documented by: Glucagon () 1 mg IM .X1 PRN PRN Reason: Hypoglycemia Guaifenesin (Robitussin) 20 ml PO Q4H PRN PRN PRN Reason: COUGH Insulin Glargine (Lantus (Bkc)) 115 units SC 1100 [facility] Last Admin: 10/08/19 11:33 Dose: 115 units Documented by: Insulin Human Lispro (Humalog Kwikpen (Bk)) 0 unit SC TIDAC [facility]; Protocol Last Admin: 10/08/19 16:54 Dose: 3 u Documented by: Insulin Human Lispro (Humalog Kwikpen ([facility])) 40 unit SC TIDCM [facility] Last Admin: 10/08/19 16:55 Dose: 40 units Documented by: Levothyroxine Sodium (Synthroid) 350 mcg PO DAILY@0600 [facility] Last Admin: 10/08/19 05:30 Dose: 350 mcg Documented by: Linagliptin (Tradjenta) 5 mg PO DAILY [facility] Last Admin: 10/08/19 08:57 Dose: 5 mg Documented by: Lisinopril (Zestril) 2.5 mg PO DAILY [facility] Last Admin: 10/08/19 08:57 Dose: 2.5 mg Documented by: Ondansetron HCl (Zofran) 4 mg IV Q8H PRN PRN PRN Reason: NAUSEA/VOMITING Sodium Chloride () 10 - 40 ml IV UD PRN PRN Reason: SALINE FLUSH Last Admin: 10/07/19 14:58 Dose: 10 ml Documented by: STROKE Vital Signs/Narrative: Vital Signs Temp Pulse Resp BP Pulse Ox 10/08/19 14:25 97.7 F L 83 18 121/62 H 96 Medical Necessity - Tobacco Use Smoking Status: Former smoker Assessment/Plan All Active Problems (Last Reviewed 10/06/19 @ 16:[address] Velasquez Vivas, DO) Unspecified sprain of right wrist, initial encounter (Acute) Low back strain (Acute) Hyperosmolar non-ketotic state in patient with type 2 diabetes mellitus (Acute) 1. Hyperglycemia in a known type II DM patient, sugars are uncontrolled. HbA1c is 13.8 Continue on Lantus to 115 units QHS, pre-meal insulin to 40 units 3 times daily, continue with insulin sliding scale Continue on Tradjenta Will benefit from owner operator tanker truck driver on discharge 2. Pseudohyponatremia, improved with IV hydration, will continue hydration 3. Hypothyroidism, on levothyroxine 4. Hyperlipidemia, on statin 5. Anxiety/depression, continue on Prozac 6. DVT PPx- early ambulation Inpatient E&M: [id number] [facility] Hosp L2
[2019-10-08 23:43] VITALS: BP 109/61; PULSE 81; RESP 17; TEMP 37.1; O2SAT 95
[2019-10-08] MEDS: Atorvastatin Calcium 20 MG Tablet PO (23:48)
[2019-10-09 03:58] VITALS: BP 114/76; PULSE 82; RESP 20; TEMP 36.4; O2SAT 95
[2019-10-09] MEDS: Levothyroxine 175 MCG Tablet 350 MCG PO (06:51)
[2019-10-09 07:04] LABS: Absolute Lymphocyte Count 2.33 X10^3/uL (0.83-4.51); Absolute Neutrophil Count 3.7 X10^3/uL (2.0-7.7); Basophil# 0.06 X10^3/uL; Basophil% 0.9 % (0-1); Eosinophil# 0.17 X10^3/uL; Eosinophils% 2.5 % (0-5); Hematocrit 40.6 % (37-47); Hemoglobin 12.7 g/dL (12.0-15.0); Lymphocyte # 2.33 X10^3/ul (4.0); Lymphocyte % 33.6 % (19-41); Mean Corp Hgb Conc 31.3 g/dL (32-36); Mean Corpuscular Hgb 25.2 pg (27.0-32.0); Mean Corpuscular Volume 80.6 fL (81-99); Mean Platelet Vol. 9.8 fl (6.2-12.0); Monocyte# 0.49 X10^3/uL; Monocyte% 7.1 % (0-10); NRBC Flagged by Analyzer 0 % (0-5); Neutrophil # 3.74 X10^3/uL (2.7-7.7); Neutrophil % 53.9 % (47-70); Platelet Count 213 K/mm3 (150-450); RBC Distribution Width SD 43.7 fl (35.1-43.9); Red Blood Count 5.04 M/mm3 (4.2-5.4); White Blood Count 6.9 K/mm3 (4.4-11.0)
[2019-10-09 07:11] LABS: Bedside Glucose 427 mg/dL (70-110)
[2019-10-09 07:46] LABS: Anion Gap 4 (5-15); BUN 15 mg/dL (7-18); BUN/Creat Ratio 23.7 RATIO (10-20); Calcium,Total 8.3 mg/dL (8.5-10.1); Chloride 102 mmol/L (98-107); Creatinine, Serum 0.63 mg/dL (0.55-1.02); EST Glomerular Filtration Rate 104 mL/min (>60); Est Glom Filt Rate - Afr Amer 126 mL/min (>60); Estimated Creatinine Clearance 78.82 ml/min; Glucose 221 mg/dL (74-106); Potassium 4.2 mmol/L (3.5-5.1); Sodium Level 134 mmol/L (136-145)
[2019-10-09 08:10] VITALS: BP 134/78; PULSE 84; RESP 18; TEMP 36.9; O2SAT 97
--- NOTE | 2019-10-09 08:16 | PCM.DC ---
- Discharge Diagnoses Reason(s) for Visit for Discharge Instructions: Elevated blood sugar You will use the following diet at home:: Calorie/Carbohydrate Controlled (specify 1200, 1400, etc), Cardiac Your food should be the consistency of: Regular Your liquids should be the consistency of: Regular/Thin Discharge Activity: Return to Normal Activity Instructions: Using a Blood Sugar Log, Hyperglycemia (High Blood Sugar), What Is Type 2 Diabetes?, Using Injected Insulin, Healthy Meals for Diabetes, Exercise to Manage Your Blood Sugar, Eating Out When You Have Diabetes Additional Instructions: Continue to watch your diet and follow a low carb, cardiac diet. Monitor your blood glucose closely. Allergies/Adverse Reactions: Allergies codeine Allergy (Verified 04/04/19 04:52) Angioedema Penicillins Allergy (Verified 04/04/19 04:52) Rash Sulfa (Sulfonamide Antibiotics) Allergy (Verified 04/04/19 04:52) Rash sulfamethoxazole [Bactrim] Allergy (Verified 04/04/19 04:52) Unknown trimethoprim [Bactrim] Allergy (Verified 04/04/19 04:52) Unknown metformin Adverse Reaction (Verified 04/04/19 04:52) Upset Stomach Medications to take at Discharge albuterol sulfate 2.5 mg INHALATION Q4H PRN PRN 04/11/18 lisinopril 2.5 mg tablet 2.5 mg PO DAILY 04/11/18 Fluoxetine HCl 40 mg PO DAILY 02/12/19 Sitagliptin Phosphate [Januvia] 100 mg PO DAILY 02/12/19 Atorvastatin Calcium [Lipitor] 20 mg PO QHS 10/06/19 Levothyroxine Sodium [Synthroid] 200 mcg PO DAILY 10/06/19 Levothyroxine [Synthroid] 150 mcg PO DAILY 10/06/19 Acetaminophen [Tylenol Tablet] 650 mg PO Q6H PRN PRN tab 10/09/19 Insulin Glargine [Lantus SoloStar Pen] 115 units SUBCUT 1100 #1 pen 10/09/19 Insulin Lispro [Humalog KwikPen] See Protocol SUBCUT TIDAC #1 insuln.pen 10/09/19 The following prescriptions were given: Insulin Lispro [Humalog KwikPen] See Protocol SUBCUT TIDAC #1 insuln.pen Transmission Status: Pending to [facility]/pharmacy #[id number] Insulin Glargine [Lantus SoloStar Pen] 115 units SUBCUT 1100 #1 pen Transmission Status: Pending to [facility]/pharmacy #[id number] Primary Care Physician: Tj Douglass MD [Primary Care Provider] - Please follow up with your Primary Care Physician in: within 1-2 weeks Test Results: Test results from this visit will be discussed in further detail at your follow-up appointment, if applicable. Please Follow Up With: Haile Cervantes MD When: as scheduled Proposed Discharge Date: 10/09/19
--- NOTE | 2019-10-09 08:23 | DS.PCM_ITS ---
Discharge Date and Diagnosis Date of Admission: 10/06/19 Date of Discharge: 10/09/19 - Primary Discharge Diagnosis Hyperglycemia - Secondary Discharge Diagnosis Chronic Problems (Last Reviewed 10/06/19 @ 16:[address] Velasquez Vivas DO) Hypertension (Chronic) Hypothyroidism (Chronic) Hyperlipidemia (Chronic) Morbid obesity (Chronic) Hospital Course and Treatment Imaging Results: Clinical Impression(s) from Imaging Studies Chest X-Ray 10/06/19 14:40 IMPRESSION: Mild increased markings at the left base suggestive of atelectasis and/or early infiltrate. Electronically Signed: Moy Rivera, at 15:07 EDT , Service support , None Operations: None Procedures: None Summary of Care Provided: The patient is a 53 year old F with past medical history of type II DM, morbid obesity, hypothyroidism who comes in with hyperglycemia and abdominal discomfort as well as back pain ongoing for 2 weeks. This is associated with some nausea but no vomiting. She was seen in the emergency department and her blood sugar was elevated at 651. There were no signs of acute DKA. Patient was managed on the Medr floor on increased insulin. Blood sugars continue to improve with insulin and IV fluids. She was subsequently discharged home with better blood sugars. She was counseled strongly to follow up with endocrinology in the outpatient. An appointment was made for her with endocrinology prior to discharge. Subjective: On the day of discharge, patient was seen and examined. Denied any new complaints. Objective: Physical exam: General: Alert, No apparent distress HEENT: Atraumatic, Normocephalic Oral: Moist Mucosa, No Gingival or Mucosal Lesions/ Ulcerations Neck: No Nodes, Trachea Midline Lungs: Clear to auscultation, Normal air movement, No rhonchi, No wheeze Cardiovascular: Regular rate, Regular Rhythm, Normal S1, Normal S2, No murmurs Abdomen: Bowel Sounds Present, Soft, Non Tender, Non-Distended, No Hepato- splenomegaly Extremities: No edema, No Calf Tenderness Skin: No rashes, No breakdown Musculoskeletal: - - Reproducible paraspinal lumbar tenderness Psych/Mental Status: Appropriate, Flat Affect - Physical Exam Vitals/I&O's: Vital Signs Temp Pulse Resp BP Pulse Ox 97.6 F L 82 20 H 114/76 95 10/09/19 03:58 10/09/19 03:58 10/09/19 03:58 10/09/19 03:58 10/09/19 03:58 Oxygen Delivery Method Room Air Weight: 109.633 kg Body Mass Index (BMI) 45.6 Finger Stick Blood Glucose 181 Intake and Output for Last 24 Hours 10/07/19 10/08/19 10/09/19 23:59 23:59 23:59 Intake Total 1400 / 1400 2726.67 / 2926.67 300 / 300 Output Total 2650 / 2650 2200 / 2200 Balance -1250 / -1250 526.67 / 726.67 300 / 300 Laboratory Results 10/06/19 17:15: POC Glucose 427 H 10/09/19 06:51: WBC 6.9, RBC 5.04, Hgb 12.7, Hct 40.6, MCV 80.6 L, MCH 25.2 L, M CHC 31.3 L, RDW Std Deviation 43.7, RDW Coeff of [place] 15.0 H, Plt Count 213, MPV 9.8, Immature Gran % (Auto) 2.000 H, Neut % (Auto) 53.9, Lymph % (Auto) 33.6, [place] % (Auto) 7.1, Eos % (Auto) 2.5, Baso % (Auto) 0.9, Absolute Neuts (auto) 3.7, Absolute Lymphs (auto) 2.33, Nucleated RBC % 0 10/09/19 06:51: Sodium 134 L, Potassium 4.2, Chloride 102, Carbon Dioxide 28.0, Anion Gap 4 L, BUN 15, Creatinine 0.63, Estim Creat Clear Calc 78.82, Est GFR (MDRD) Af Amer 126, Est GFR (MDRD) Non-Af 104, BUN/Creatinine Ratio 23.7 H, Glucose 221 H, Calcium 8.3 L Current Medications Acetaminophen (Tylenol) 650 mg PO Q6H PRN PRN PRN Reason: Pain Score 1-10/Temp > 100.7 F Last Admin: 10/08/19 21:00 Dose: 650 mg Documented by: Albuterol Sulfate (Ventolin Aerosols) 2.5 mg INHALATION Q4H PRN PRN PRN Reason: SOB &/OR WHEEZING Atorvastatin Calcium (Lipitor) 20 mg PO QHS [facility] Last Admin: 10/08/19 23:48 Dose: 20 mg Documented by: Dextrose (D50w Syringe) 0 gm IV X1 PRN; Protocol PRN Reason: Hypoglycemia Fluoxetine HCl (Prozac) 40 mg PO DAILY [facility] Last Admin: 10/08/19 08:57 Dose: 40 mg Documented by: Glucagon () 1 mg IM .X1 PRN PRN Reason: Hypoglycemia Guaifenesin (Robitussin) 20 ml PO Q4H PRN PRN PRN Reason: COUGH Insulin Glargine (Lantus (Bkc)) 115 units SC 1100 [facility] Insulin Human Lispro (Humalog Kwikpen ([facility])) 0 unit SC TIDAC [facility]; Protocol Last Admin: 10/08/19 16:54 Dose: 3 u Documented by: Insulin Human Lispro (Humalog Kwikpen ([facility])) 40 unit SC TIDCM [facility] Last Admin: 10/08/19 16:55 Dose: 40 units Documented by: Levothyroxine Sodium (Synthroid) 350 mcg PO DAILY@0600 [facility] Last Admin: 10/09/19 06:51 Dose: 350 mcg Documented by: Linagliptin (Tradjenta) 5 mg PO DAILY [facility] Last Admin: 10/08/19 08:57 Dose: 5 mg Documented by: Lisinopril (Zestril) 2.5 mg PO DAILY [facility] Last Admin: 10/08/19 08:57 Dose: 2.5 mg Documented by: Ondansetron HCl (Zofran) 4 mg IV Q8H PRN PRN PRN Reason: NAUSEA/VOMITING Sodium Chloride () 10 - 40 ml IV UD PRN PRN Reason: SALINE FLUSH Last Admin: 10/07/19 14:58 Dose: 10 ml Documented by: Discharge Diet: Low fat/ Low Cholesterol, 2000 mg Sodium Diet, Carb Control Diet Discharge Activity: Return to Normal Activity Home Medications: Medications to take at Discharge albuterol sulfate 2.5 mg INHALATION Q4H PRN PRN 04/11/18 lisinopril 2.5 mg tablet 2.5 mg PO DAILY 04/11/18 Fluoxetine HCl 40 mg PO DAILY 02/12/19 Sitagliptin Phosphate [Januvia] 100 mg PO DAILY 02/12/19 Atorvastatin Calcium [Lipitor] 20 mg PO QHS 10/06/19 Levothyroxine Sodium [Synthroid] 200 mcg PO DAILY 10/06/19 Levothyroxine [Synthroid] 150 mcg PO DAILY 10/06/19 Acetaminophen [Tylenol Tablet] 650 mg PO Q6H PRN PRN tab 10/09/19 Insulin Glargine [Lantus SoloStar Pen] 115 units SUBCUT 1100 #1 pen 10/09/19 Insulin Lispro [Humalog KwikPen] See Protocol SUBCUT TIDAC #1 insuln.pen 10/09/19 Following Prescrptions Were Given to Patient: Insulin Lispro [Humalog KwikPen] See Protocol SUBCUT TIDAC #1 insuln.pen Transmission Status: Received by [id number] Insulin Glargine [Lantus SoloStar Pen] 115 units SUBCUT 1100 #1 pen Transmission Status: Received by [id number] Primary Care Physician: Tj Douglass MD [Primary Care Provider] - Please follow up with your Primary Care Physician in: within 1-2 weeks Please Follow Up With: Haile Cervantes MD When: as scheduled Patient Instructions: Using a Blood Sugar Log, Hyperglycemia (High Blood Sugar), What Is Type 2 Diabetes?, Using Injected Insulin, Healthy Meals for Diabetes, Eating Out When You Have Diabetes, Exercise to Manage Your Blood Sugar Disposition: Home Minutes spent on discharge:: 40 Patient Condition:: Stable Medical Necessity - Tobacco Use Smoking Status: Former smoker Tobacco Use: Non-smoker Meaningful Use Info Meaningful Use Diagnoses (Choose all that apply): None applicable OBSV E&M: 66636 Observation care discharge
[2019-10-09] MEDS: Insulin Lispro 100 UNIT/ML INSULN.PEN SC (08:32)
[2019-10-09] MEDS: Insulin Lispro 100 UNIT/ML INSULN.PEN 40 UNIT SC (08:36)
[2019-10-09] MEDS: LINAGLIPTIN 5 MG TABLET PO (08:37)
[2019-10-09] MEDS: FLUoxetine 20 MG Capsule 40 MG PO (08:37)
[2019-10-09] MEDS: Lisinopril 2.5 MG Tablet PO (08:37)
[2019-10-09 09:32] VITALS: BP 136/74; PULSE 84; RESP 18; TEMP 36.9; O2SAT 97
[2019-10-09 15:21] LABS: Bedside Glucose 270 mg/dL (70-110)
[2019-10-09 15:25] LABS: Bedside Glucose 431 mg/dL (70-110)
[2019-10-09 15:25] LABS: Bedside Glucose 214 mg/dL (70-110)
[2019-10-09 15:25] LABS: Bedside Glucose 307 mg/dL (70-110)
[2019-10-09 15:25] LABS: Bedside Glucose 463 mg/dL (70-110)
[2019-10-09 15:25] LABS: Bedside Glucose 129 mg/dL (70-110)
[2019-10-09 15:25] LABS: Bedside Glucose 379 mg/dL (70-110)
[2019-10-09 15:25] LABS: Bedside Glucose 368 mg/dL (70-110)
[2019-10-09 15:25] LABS: Bedside Glucose 195 mg/dL (70-110)
[2019-10-09 15:31] LABS: Bedside Glucose 186 mg/dL (70-110)
[2019-10-09 15:31] LABS: Bedside Glucose 253 mg/dL (70-110)
[2019-10-09 15:31] LABS: Bedside Glucose 181 mg/dL (70-110)
[2019-10-09 15:31] LABS: Bedside Glucose 97 mg/dL (70-110)
[2019-10-09 15:31] LABS: Bedside Glucose 260 mg/dL (70-110)
== END 2019-10-09 10:06 | disposition home or self-care (01) ==
LOC: ED 15:50 → MS3 16:11
PROVIDERS: Emergency Provider Emergency Medicine; PCP Family Medicine; Visit Provider Internal Medicine
DX: E11.65 Type 2 diabetes mellitus with hyperglycemia (principal); R30.0 Dysuria; R35.0 Frequency of micturition; E87.1 Hypo-osmolality and hyponatremia; I10 Essential (primary) hypertension; E78.5 Hyperlipidemia, unspecified; E11.649 Type 2 diabetes mellitus with hypoglycemia without coma; F41.9 Anxiety disorder, unspecified; F32.9 Major depressive disorder, single episode, unspecified; E03.9 Hypothyroidism, unspecified; E66.01 Morbid (severe) obesity due to excess calories; M19.90 Unspecified osteoarthritis, unspecified site; J45.909 Unspecified asthma, uncomplicated; M79.7 Fibromyalgia; M32.9 Systemic lupus erythematosus, unspecified; Z79.899 Other long term (current) drug therapy; Z68.42 Body mass index [BMI] 45.0-49.9, adult; Z71.3 Dietary counseling and surveillance; Z87.891 Personal history of nicotine dependence; Z79.4 Long term (current) use of insulin
CPT/HCPCS: 36415; 71045; 80048; 80053; 81001; 82009; 82962; 83036; 83690; 85025; 96360; 96361; 97802; 97803; 99218; 99285; J7030; A4216; G0378

== ENCOUNTER 2020-01-21 20:32 | Emergency (ER) | payer OTHER, SELFPAY ==
[2020-01-21 20:34] VITALS: BP 156/76; PULSE 93; RESP 18; TEMP 36.4; O2SAT 97; BMI 47.2
--- NOTE | 2020-01-21 20:51 | ED.VIS.GEN ---
History of Present Illness Chief Complaint: Lower Extremity Injury Informant: Patient Onset: Today Narrative: Patient was experiencing a pain and fullness in the posterior left knee while walking today at work. She felt a pain seemed to come from front to back and now she has pain going down into her calf. She denies any known injuries to the knee. No prior knee surgeries. Past Medical History - Allergies and Home Meds Allergies/Adverse Reactions: Allergies codeine Allergy (Verified 01/21/20 20:33) Angioedema Penicillins Allergy (Verified 01/21/20 20:33) Rash Sulfa (Sulfonamide Antibiotics) Allergy (Verified 01/21/20 20:33) Rash sulfamethoxazole [Bactrim] Allergy (Verified 01/21/20 20:33) Unknown trimethoprim [Bactrim] Allergy (Verified 01/21/20 20:33) Unknown Primary Care Physician: Tadeo Fofana DO [STAFF PHYSICIAN] - 1 Week if not improving Surgical History: cholecystectomy, dilatation and curettage Smoking Status: Former smoker - Family History Maternal Family History: Family History (Last Reviewed 10/06/19 @ 16:[address] Velasquez Vivas DO) Other Cancer Family History: Reports: Cancer - breast, Diabetes Paternal Family History: Family History (Last Reviewed 10/06/19 @ 16:[address] Velasquez Vivas DO) Other Cancer Family History: Reports: Cancer - brain, kidney Review of Systems General: Denies: Chills, Fever, Sweats Eyes: Denies: Visual changes - bilaterally, Diplopia ENT: Denies: Rhinorrhea, Sore throat Cardiovascular: Denies: Chest pain, Palpitations Respiratory: Denies: Dyspnea, Cough, Dyspnea on exertion Gastrointestinal: Denies: Abdominal pain, Nausea, Vomiting, Diarrhea, Melena, Hematochezia Genitourinary: Denies: Dysuria, Hematuria, Frequency Musculoskeletal: Reports: Extremity Pain. Denies: Back pain Skin: Denies: Rash, Wounds Neurological: Denies: Headache, Weakness, Numbness Physical Exam Vital Signs/Narrative: Vital Signs Temp Pulse Resp BP Pulse Ox 01/21/20 20:34 97.6 F L 93 18 156/76 H 97 Inital Vital Signs reviewed: Yes General: Well nourished, Well developed, Obese, No Acute Distress Head: Normocephalic, Atraumatic Eyes: Perrl, EOMI ENT: Moist mucous membranes, No rhinorrhea Neck: Supple, Nontender Cardiovascular: Regular rate, Regular rhythm, No murmurs Respiratory: No distress, CTA bilaterally, Chest nontender Abdomen: Soft, Nontender, Nondistended, Normal bowel sounds Back: Nontender, Normal Inspection Extremities: - - There is a palpable fullness to the posterior left knee. This extends down to the proximal calf musculature. There is no joint effusion. Ligaments appear stable. Extensor mechanism intact. There appears to be a contusions and some mild swelling over the anterior distal lateral leg. Skin: Normal color, No rash Neurological: Alert, Oriented x3, Cranial nerves II-XII grossly intact, Normal Strength, Normal Sensation Psychological: Normal affect, Normal Mood Diagnostic/Tx/Re-eval - Medical Decision Making X-rays do not reveal any fracture. Clinically this appears to be a Quan's cyst that ruptured. Will treat with an Rico wrap however follow-up with orthopedics if not improved in 1 week ED Disposition - Plan for ED Patient: Disposition: Non-Skill NH/Intermediate Care Diagnosis: Posterior left knee pain, Quan's cyst of knee Instructions: ED Cyst Quan Referrals: Tadeo Fofana DO [STAFF PHYSICIAN] - 1 Week if not improving
--- NOTE | 2020-01-21 21:00 | RAD_ITS ---
STUDY: X-RAY - LEFT KNEE REASON FOR EXAM: Female, 54 years old. LEFT KNEE PAIN AFTER FALLING AT WORK TECHNIQUE: 4 view(s) of the knee. COMPARISON: None. FINDINGS: Normal visualized distal femur. Normal visualized proximal tibia and fibula. Normal proximal tibiofibular articulation. Normal medial femorotibial compartment. Normal lateral femorotibial compartment. Normal patellofemoral articulation. The soft tissue structures are unremarkable. RAD/Knee 4 or More Views IMPRESSION: Normal x-ray examination of the knee. Electronically Signed: Alonso Mcmahan MD at 21:27 EDT , Service support ,
== END 2020-01-21 21:25 | disposition home or self-care (01) ==
LOC: ED 21:15
PROVIDERS: Emergency Provider Emergency Medicine; PCP Family Medicine
DX: S86.812A Strain of other muscle(s) and tendon(s) at lower leg level, left leg, initial encounter (principal); X58.XXXA Exposure to other specified factors, initial encounter; Y93.01 Activity, walking, marching and hiking; Y92.9 Unspecified place or not applicable; Y99.0 Civilian activity done for income or pay; E66.9 Obesity, unspecified; Z68.42 Body mass index [BMI] 45.0-49.9, adult; Z87.891 Personal history of nicotine dependence
CPT/HCPCS: 73564; 99282

== ENCOUNTER 2020-03-23 04:32 | Emergency (ER) | payer OTHER, SELFPAY ==
[2020-01-25 10:48] VITALS: BMI 47.2
[2020-03-23 04:33] VITALS: BP 129/73; PULSE 104; RESP 22; TEMP 37; O2SAT 98; BMI 48.3
[2020-03-23 04:41] VITALS: BP 129/73; PULSE 104; RESP 22; TEMP 37; O2SAT 98
--- NOTE | 2020-03-23 04:53 | EKG12_ITS ---
Test Reason : DYSRHYTHMIA Blood Pressure : / mmHG Vent. Rate : 097 BPM Atrial Rate : 097 BPM P-R Int : 116 ms QRS Dur : 120 ms QT Int : 374 ms P-R-T Axes : 044 -43 017 degrees QTc Int : 474 ms Sinus rhythm with Premature atrial complexes Left axis deviation Right bundle branch block Voltage criteria for left ventricular hypertrophy Possible Lateral infarct , age undetermined Abnormal ECG Right bundle branch block is now Present Confirmed by YAN BRODERICK, CONNIE ([id number]), commercial production editor BRITTANY NGUYEN ([id number]) on 03/24/2020 10:57:55 AM Referred By: OSMAN Confirmed By:CONNIE HEREDIA MD
--- NOTE | 2020-03-23 04:53 | RAD_ITS ---
STUDY: X-RAY CHEST REASON FOR EXAM: Female, 54 years old. pt has felt SOB for 2-3 weeks. pt tested pos for COVID Mar 01. TECHNIQUE: Single AP portable view of the chest. COMPARISON: 10/06/2019. 01/17/2018. FINDINGS: There are superimposed monitor leads. Stable linear changes in the left base, retrocardiac space and along the minor fissure and right suprahilar parenchyma consistent with scarring. Increased bronchial prominence since the most recent examination. No focal consolidation. There is no demonstrated pleural abnormality. Normal size heart. Normal mediastinum and leigh. Normal visualized pulmonary arteries. Normal visualized aortic arch and descending thoracic aorta. Normal visualized thoracic spine. Normal visualized ribs, clavicles, and shoulders. There is no demonstrated abnormality of the visualized soft tissue structures of the upper abdomen. RAD/Chest 1 View (Portable) IMPRESSION: Increased bronchial prominence possible bronchial inflammation. Scarring bilateral lung parenchyma. No confluent pneumonia detected. Electronically Signed: Kristi Wheeler MD at 5:46 EDT , Service support ,
--- NOTE | 2020-03-23 04:54 | ED.DCSUM_ITS ---
History of Present Illness Chief Complaint: Shortness of Breath Informant: Patient Narrative: 54-year-old female presents the emergency department with chief complaint of heart palpitations and dyspnea. Patient works at [employer]. She tested positive for COVID on March 01. She states that those symptoms of bronchitis have gotten significantly better however for at least 2 weeks now she has felt her heart beating faster than normal. She states that she feels herself breathing faster. She reports that tonight while she was working her heart rate was around 120. Blood sugars have been in the 200-300 range. She denies any significant cough or fever. No known cardiac history. She denies ever having echocardiogram or stress test. She is on Synthroid for hypothyroidism. The patient states that she has been working 12 to 14-hour days and is extremely tired. Past Medical History - Allergies and Home Meds Allergies/Adverse Reactions: Allergies codeine Allergy (Verified 03/23/20 04:39) Angioedema Penicillins Allergy (Verified 03/23/20 04:39) Rash Sulfa (Sulfonamide Antibiotics) Allergy (Verified 03/23/20 04:39) Rash sulfamethoxazole [Bactrim] Allergy (Verified 03/23/20 04:39) Unknown trimethoprim [Bactrim] Allergy (Verified 03/23/20 04:39) Unknown Primary Care Physician: Tj Douglass MD [Primary Care Provider] - Surgical History: cholecystectomy, dilatation and curettage Smoking Status: Never smoker - Family History Maternal Family History: Family History (Last Reviewed 01/25/20 @ 10:48 by Rylee Serra) Other Cancer Family History: Reports: Cancer - breast, Diabetes Paternal Family History: Family History (Last Reviewed 01/25/20 @ 10:48 by Rylee Serra) Other Cancer Family History: Reports: Cancer - brain, kidney Review of Systems General: Denies: Chills, Fever, Sweats Eyes: Denies: Visual changes - bilaterally, Diplopia ENT: Denies: Rhinorrhea, Sore throat Cardiovascular: Reports: Palpitations, Heart racing. Denies: Chest pain Respiratory: Reports: Dyspnea. Denies: Cough, Dyspnea on exertion Gastrointestinal: Denies: Abdominal pain, Nausea, Vomiting, Diarrhea, Melena, Hematochezia Genitourinary: Denies: Dysuria, Hematuria, Frequency Musculoskeletal: Denies: Back pain, Extremity Pain Skin: Denies: Rash, Wounds Neurological: Denies: Headache, Weakness, Numbness Physical Exam Vital Signs/Narrative: Vital Signs Temp Pulse Resp BP Pulse Ox 03/23/20 04:41 98.6 F 104 H 22 H 129/73 H 98 03/23/20 04:33 98.6 F 104 H 22 H 129/73 H 98 General: Well nourished, Well developed, Obese, No Acute Distress Head: Normocephalic, Atraumatic Eyes: Perrl, EOMI ENT: Moist mucous membranes, No rhinorrhea Neck: Supple, Nontender Cardiovascular: Regular rate, No murmurs, Tachycardia Respiratory: No distress, CTA bilaterally, Chest nontender, - - Patient has a quiet tachypnea and is not in any distress Abdomen: Soft, Nontender, Nondistended, Normal bowel sounds Back: Nontender, Normal Inspection Extremities: Nontender, No edema Skin: Normal color, No rash Neurological: Alert, Oriented x3, Cranial nerves II-XII grossly intact, Normal Strength, Normal Sensation Psychological: Normal affect, Normal Mood Diagnostic/Tx/Re-eval Laboratory Last Values WBC 9.1 K/mm3 (4.4-11.0) 03/23/20 04:50 RBC 4.31 M/mm3 (4.2-5.4) 03/23/20 04:50 Hgb 11.0 g/dL (12.0-15.0) L 03/23/20 04:50 Hct 34.7 % (37-47) L 03/23/20 04:50 MCV 80.5 fL (81-99) L 03/23/20 04:50 MCH 25.5 pg (27.0-32.0) L 03/23/20 04:50 MCHC 31.7 g/dL (32-36) L 03/23/20 04:50 RDW Std Deviation 44.8 fl (35.1-43.9) H 03/23/20 04:50 RDW Coeff of [place] 15.7 % (11.6-14.6) H 03/23/20 04:50 Plt Count 210 K/mm3 (150-450) 03/23/20 04:50 MPV 10.5 fl (6.2-12.0) 03/23/20 04:50 Immature Gran % (Auto) 2.200 % (0.0-0.9) H 03/23/20 04:50 Neut % (Auto) 56.3 % (47-70) 03/23/20 04:50 Lymph % (Auto) 31.5 % (19-41) 03/23/20 04:50 [place] % (Auto) 6.7 % (0-10) 03/23/20 04:50 Eos % (Auto) 2.6 % (0-5) 03/23/20 04:50 Baso % (Auto) 0.7 % (0-1) 03/23/20 04:50 Absolute Neuts (auto) 5.1 X10^3/uL (2.0-7.7) 03/23/20 04:50 Absolute Lymphs (auto) 2.87 X10^3/uL (0.83-4.51) 03/23/20 04:50 Nucleated RBC % 0 % (0-5) 03/23/20 04:50 D-Dimer Quant (PE/DVT) 0.38 FEU/ug/m (0.27-0.49) 03/23/20 04:50 Sodium 133 mmol/L (136-145) L 03/23/20 04:50 Potassium 4.1 mmol/L (3.5-5.1) 03/23/20 04:50 Chloride 98 mmol/L (98-107) 03/23/20 04:50 Carbon Dioxide 31.0 mmol/L (21.0-32.0) 03/23/20 04:50 Anion Gap 4 (5-15) L 03/23/20 04:50 BUN 18 mg/dL (7-18) 03/23/20 04:50 Creatinine 0.80 mg/dL (0.55-1.02) 03/23/20 04:50 Estim Creat Clear Calc 61.37 ml/min 03/23/20 04:50 Est GFR (MDRD) Af Amer 97 mL/min (>60) 03/23/20 04:50 Est GFR (MDRD) Non-Af 80 mL/min (>60) 03/23/20 04:50 BUN/Creatinine Ratio 22.6 RATIO (10-20) H 03/23/20 04:50 Glucose 317 mg/dL (74-106) H 03/23/20 04:50 Calcium 8.8 mg/dL (8.5-10.1) 03/23/20 04:50 Magnesium 1.8 mg/dL (1.6-2.6) 03/23/20 04:50 Total Bilirubin 0.40 mg/dL (0.20-1.00) 03/23/20 04:50 AST 42 U/L (15-37) H 03/23/20 04:50 ALT 52 U/L (13-56) 03/23/20 04:50 Alkaline Phosphatase 152 U/L (45-117) H 03/23/20 04:50 Troponin I < 0.015 ng/mL (<0.045) 03/23/20 04:50 Total Protein 8.0 g/dL (6.4-8.2) 03/23/20 04:50 Albumin 3.1 g/dL (3.2-5.0) L 03/23/20 04:50 Globulin 4.9 g/dL (2.2-4.2) H 03/23/20 04:50 Albumin/Globulin Ratio 0.6 RATIO (0.9-2.4) L 03/23/20 04:50 TSH 0.01 uIU/mL (0.358-3.74) L 03/23/20 04:50 - Rhythm Strip Rhythm Strip: Sinus Rhythm Rate: 95 Ectopy: None - EKG Initial EKG Interpretation: Sinus Rhythm - EKG demonstrated a sinus rhythm with PACs and a right bundle branch block. - Medical Decision Making Patient was observed on the monitor. At times her heart rate has dropped down into the low 90s but usually has been around 100. Chest x-ray is chronic changes nothing acute. Basic blood work was negative. Patient will be discharged home following up with her doctor return if worsening or concerns ED Disposition - Plan for ED Patient: Disposition: Home or Assisted Living Diagnosis: Palpitations, Dyspnea Instructions: ED Dyspnea, ED Palpitations Referrals: Tj Douglass MD [Primary Care Provider] - As soon as possible
[2020-03-23 05:03] LABS: Absolute Lymphocyte Count 2.87 X10^3/uL (0.83-4.51); Absolute Neutrophil Count 5.1 X10^3/uL (2.0-7.7); Basophil# 0.06 X10^3/uL; Basophil% 0.7 % (0-1); Eosinophil# 0.24 X10^3/uL; Eosinophils% 2.6 % (0-5); Hematocrit 34.7 % (37-47); Lymphocyte # 2.87 X10^3/ul (4.0); Lymphocyte % 31.5 % (19-41); Mean Corp Hgb Conc 31.7 g/dL (32-36); Mean Corpuscular Hgb 25.5 pg (27.0-32.0); Mean Corpuscular Volume 80.5 fL (81-99); Mean Platelet Vol. 10.5 fl (6.2-12.0); Monocyte# 0.61 X10^3/uL; Monocyte% 6.7 % (0-10); NRBC Flagged by Analyzer 0 % (0-5); Neutrophil # 5.12 X10^3/uL (2.7-7.7); Neutrophil % 56.3 % (47-70); Platelet Count 210 K/mm3 (150-450); RBC Distribution Width CV 15.7 % (11.6-14.6); RBC Distribution Width SD 44.8 fl (35.1-43.9); Red Blood Count 4.31 M/mm3 (4.2-5.4); White Blood Count 9.1 K/mm3 (4.4-11.0)
[2020-03-23 05:09] LABS: D-Dimer Quantitative (DVT/PE) 0.38 FEU/ug/m (0.27-0.49)
[2020-03-23 05:21] LABS: ALB/GLOB Ratio 0.6 RATIO (0.9-2.4); AST(SGOT) 42 U/L (15-37); Alanine Aminotransfer ALT/SGPT 52 U/L (13-56); Albumin, Serum 3.1 g/dL (3.2-5.0); Alkaline Phosphatase 152 U/L (45-117); Anion Gap 4 (5-15); BUN 18 mg/dL (7-18); BUN/Creat Ratio 22.6 RATIO (10-20); Calcium,Total 8.8 mg/dL (8.5-10.1); Chloride 98 mmol/L (98-107); EST Glomerular Filtration Rate 80 mL/min (>60); Est Glom Filt Rate - Afr Amer 97 mL/min (>60); Estimated Creatinine Clearance 61.37 ml/min; Globulin 4.9 g/dL (2.2-4.2); Glucose 317 mg/dL (74-106); Magnesium 1.8 mg/dL (1.6-2.6); Potassium 4.1 mmol/L (3.5-5.1); Sodium Level 133 mmol/L (136-145); Thyroid Stim Hormone (TSH) 0.01 uIU/mL (0.358-3.74)
[2020-03-23 05:37] VITALS: BP 129/70; PULSE 107; RESP 20; TEMP 36.9; O2SAT 96
[2020-03-23 05:49] VITALS: BP 129/70; PULSE 107; RESP 20; O2SAT 96
== END 2020-03-23 05:56 | disposition home or self-care (01) ==
PROVIDERS: Emergency Provider Emergency Medicine; PCP Family Medicine
DX: R06.02 Shortness of breath (principal); R00.2 Palpitations; I45.10 Unspecified right bundle-branch block; E03.9 Hypothyroidism, unspecified; E66.9 Obesity, unspecified; Z68.42 Body mass index [BMI] 45.0-49.9, adult; Z79.899 Other long term (current) drug therapy
CPT/HCPCS: 71045; 80053; 83735; 84443; 84484; 85025; 85379; 93005; 99284; A4216

== ENCOUNTER 2020-06-13 12:25 | Emergency (ER) | payer OTHER, SELFPAY ==
[2020-06-13 12:26] VITALS: BP 124/90; PULSE 108; RESP 16; TEMP 36.3; O2SAT 98; BMI 47.9
--- NOTE | 2020-06-13 13:50 | RAD_ITS ---
INDICATION: INFECTED THUMB NAIL EXAMINATION/TECHNIQUE: X-RAY - RIGHT HAND XR Fingers Min 2 Views 3 VIEWS COMPARISON: None. FINDINGS: SOFT TISSUES: No soft tissue swelling or gas. No radiopaque foreign body. BONES/JOINTS: No acute fracture or subluxation.. Normal alignment. Preservation of the joint space.. No sclerotic or destructive changes observed. RAD/Finger(s) Min 2 Views IMPRESSION: Normal Right thumb Electronically Signed: Boubacar Mcarthur, at 14:51 EST Tel , Service support ,
--- NOTE | 2020-06-13 14:36 | ED.DCSUM_ITS ---
- ER Visit Summary Date of Service: 06/13/20 Chief Complaint: Right thumb pain History of Present Illness: The patient is a [address] Abarca. She reports that approximately week ago she had a hangnail on her right thumb. She pulled this off and has had increasing pain. She describes a sharp pain 6 out of 10 at worst and 5-10 currently. Is worsened by movement or bumping it. She not taking anything for pain. She was seen in urgent care 3 days ago and placed on doxycycline. Reports that it is not improved. She is right-hand dominant. She denies any constitutional symptoms. No fever, chills, nausea, or vomiting. Physical Examination: Vitals: Stable. Afebrile. General: Well-nourished and well-developed. Head: Normocephalic atraumatic. Neck: Supple, no lymphadenopathy. No JVD. Nontender. Cardiovascular: Regular rate and rhythm. No murmurs. Respiratory: No respiratory distress. Clear to auscultation bilaterally. Abdominal: Soft, nontender, nondistended, normal bowel sounds. No guarding, rebound, or peritoneal signs. Back: Nontender. Extremities: Paronychia at the base of her right thumbnail. The fluctuance is on the lateral side of this. There is no lymphangitic spread. There is no evidence of a felon. Skin: Normal color, no rash. Neurologic: Alert and oriented ?3. Cranial nerves II through XII are intact. Normal strength and sensation. Psych: Normal affect. Test Results: Clinical Impression(s) from Imaging Studies Finger X-Ray 06/13/20 13:50 IMPRESSION: Normal Right thumb Electronically Signed: Boubacar Mcarthur, at 14:51 EST Tel , Service support , Emergency Department Course and Treatment: Discussed the patient possibility of a digital block. She preferred to have this done without this. An 11 blade was used to separate the skin from her nail itself and a small amount of pus did drain. Treatment Plan: Patient be discharged instructions to continue the doxycycline. She given a prescription for [place]. She instructed to soak her thumb. Follow- up with Dr. Saini in 2 days for a wound check. Return to the emergency department for any worsening symptoms. Disposition: To home in improved and stable condition. Impression: 1. Paronychia right thumb. This note was generated with [employer] dictation software. It may contain incorrect words, spelling, and punctuation that were not noted in review of the chart prior to signing ED Disposition - Plan for ED Patient: Disposition: Home or Assisted Living Instructions: ED FINGERNAIL INFECTION Prescriptions: Docusate Sodium [Colace] 100 mg PO DAILY #20 cap Prescription Printed Hydrocodone Bitart/Apap 5-325 [[place] 5MG-325MG] 1 tab PO Q4H PRN PRN 2 Days #10 tab PRN Reason: Pain Prescription Printed Referrals: Sid Saini MD [STAFF PHYSICIAN] - 2 Days for wound check
== END 2020-06-13 16:10 | disposition home or self-care (01) ==
LOC: ED 13:51
PROVIDERS: Emergency Provider Emergency Medicine; PCP Family Medicine
DX: L03.011 Cellulitis of right finger (principal)
CPT/HCPCS: 10060; 73140; 99281

== ENCOUNTER 2020-09-06 23:44 | Emergency (ER) | payer OTHER, SELFPAY ==
[2020-09-06 23:45] VITALS: BP 153/123; PULSE 99; RESP 18; TEMP 36.9; O2SAT 98; BMI 47.9
[2020-09-07 00:04] LABS: Color, Urine Yellow (Yellow); Glucose, Dipstick 100 mg/dl (Normal); Ketone-Dipstick 5 mg/dl (Negative); Leukocyte Esterase-Dipstick 500 /ul (Negative); Mucous, Urine 0 SEEN /hpf (<or=2+); Nitrite-Dipstick Positive (Negative); Occult Blood-Urine 250 /ul (Negative); Protein-Dipstick 30 mg/dl (Negative); Specific Gravity, Urine 1.025 (1.002-1.030); Urine Bilirubin Dipstick Negative (Negative); Urine Clarity Cloudy (Clear); Urine Urobilinogen 1 mg/dl (Normal)
[2020-09-07 00:10] LABS: Bacteria 1+ /hpf (None Seen); Red Blood Cells-Urine 5-10 SEEN /hpf (0-5); Squamous Epithelial Cells - UA 0-5 SEEN /hpf (5-10); White Blood Cells 10-25 SEEN /hpf (0-5)
--- NOTE | 2020-09-07 00:13 | EKG12_ITS ---
Test Reason : DYSRHYTHMIA Blood Pressure : / mmHG Vent. Rate : 082 BPM Atrial Rate : 082 BPM P-R Int : 134 ms QRS Dur : 124 ms QT Int : 424 ms P-R-T Axes : 023 -49 -08 degrees QTc Int : 495 ms Normal sinus rhythm Right bundle branch block Left anterior fascicular block Bifascicular block Moderate voltage criteria for LVH, may be normal variant Abnormal ECG Confirmed by GRIS BRODERICK, MICH ([id number]), assignment desk editor JEFFREY DUMONT ([id number]) on 09/08/2020 1:52:54 PM Referred By: LISA Confirmed By:MICH LANDRY MD
--- NOTE | 2020-09-07 00:13 | RAD_ITS ---
STUDY: X-RAY CHEST REASON FOR EXAM: Female, 54 years old. C/O and quot;CHEST FEELING FUNNY and quot; STATES SHE CANT EXPLAIN WHAT SHE MEANS, IT HAS BEEN GOING ON INTERMITTENTLY FOR and quot;AWHILE and quot; TECHNIQUE: Single AP portable view of the chest. COMPARISON: 03/23/2020 FINDINGS: The lungs are clear and expanded. There is no demonstrated pleural abnormality. Normal size heart. Normal mediastinum and leigh. Normal visualized pulmonary arteries. Normal visualized aortic arch and descending thoracic aorta. Normal visualized thoracic spine. Normal visualized ribs, clavicles, and shoulders. There is no demonstrated abnormality of the visualized soft tissue structures of the upper abdomen. RAD/Chest 1 View (Portable) IMPRESSION: Normal x-ray examination of the chest. Electronically Signed: Harvey Linton DO at 0:56 EST Tel , Service support ,
--- NOTE | 2020-09-07 00:15 | ED.DCSUM_ITS ---
History of Present Illness Chief Complaint: Complaint Informant: Patient Onset: Days Context: Gradual Onset Narrative: Patient is a 54-year-old female with history of type 2 diabetes mellitus, insulin-dependent, presenting with UTI symptoms as well as increased fatigue and generalized weakness. Patient states she has had UTIs for the past 2 months that she has been working to deal with. She states her last course of antibiotic was a couple weeks ago and she does not member which one it was. She no she is also been having ongoing issues with yeast infections because of her diabetes. She notes over the past week she has had increased cloudiness of urine, increased dysuria and increased fatigue. She notes her vision is seem to little blurry and she has had increased frequency of urination and a dry mouth. Patient states her blood sugar was in the mid 300s today. She denies any fevers but notes she intermittently feels hot. States she is had some mild pelvic discomfort is not sure if it is her kidney. It is more on the right. She states she just feels poorly and think she needs some IV fluids. This is why she came to the ER today. Chart review shows the patient is most recently on Macrobid on 07/08/2020. That time she was also prescribed fluconazole and to continue taking Monistat. Was prescribed by Mela Murphy. At that time urine culture was consistent with contamination. Culture from 04/19/2020 was consistent with Klebsiella pneumonia and resistant only to ampicillin. Patient's A1c on 07/08 was 14.8. Past Medical History - Allergies and Home Meds Allergies/Adverse Reactions: Allergies codeine Allergy (Verified 09/06/20 23:51) Angioedema Penicillins Allergy (Verified 09/06/20 23:51) Rash Sulfa (Sulfonamide Antibiotics) Allergy (Verified 09/06/20 23:51) Rash sulfamethoxazole [Bactrim] Allergy (Verified 09/06/20 23:51) Unknown trimethoprim [Bactrim] Allergy (Verified 09/06/20 23:51) Unknown Primary Care Physician: Tj Douglass MD [Primary Care Provider] - Past Medical History: - - Sling dependent diabetes mellitus, yeast infections, anemia, hypothyroid, KODI Surgical History: cholecystectomy, dilatation and curettage Smoking Status: Never smoker - Family History Maternal Family History: Family History (Last Reviewed 01/25/20 @ 10:48 by Rylee Serra) Other Cancer Family History: Reports: Cancer - breast, Diabetes Paternal Family History: Family History (Last Reviewed 01/25/20 @ 10:48 by Rylee Serra) Other Cancer Family History: Reports: Cancer - brain, kidney Review of Systems General: Reports: Chills, Malaise. Denies: Fever, Sweats Eyes: Reports: Blurred Vision - bilaterally. Denies: Diplopia ENT: Denies: Rhinorrhea, Sore throat Cardiovascular: Reports: Chest pain - Intermittent discomfort in chest?patient attributes this to anxiety. Denies: Palpitations Respiratory: Denies: Dyspnea, Cough, Dyspnea on exertion Gastrointestinal: Reports: Abdominal pain - Lower abdomen/pelvic region, Nausea. Denies: Vomiting, Diarrhea, Melena, Hematochezia Genitourinary: Reports: Dysuria, Hematuria, - - Pressure with urination, difficulty urinating. Denies: Frequency Musculoskeletal: Denies: Back pain, Extremity Pain Skin: Denies: Rash, Wounds Neurological: Reports: Headache - Intermittent. Denies: Weakness, Numbness Physical Exam Vital Signs/Narrative: Vital Signs Temp Pulse Resp BP Pulse Ox 09/06/20 23:45 98.5 F 99 18 153/123 H 98 Inital Vital Signs reviewed: Yes General: Well nourished, Well developed, Obese, No Acute Distress Head: Normocephalic, Atraumatic Eyes: Perrl, EOMI ENT: No rhinorrhea, Dry mucous membranes Neck: Supple, Nontender, No JVD Cardiovascular: Regular rate, Regular rhythm, No murmurs Respiratory: No distress, CTA bilaterally, Chest nontender Abdomen: Soft, Nontender, Nondistended, Normal bowel sounds. Negative for: Guarding, Rebound tenderness Back: Nontender, Normal Inspection. Negative for: CVA tenderness, Spinal tenderness Extremities: Nontender, No edema Skin: Normal color, No rash Neurological: Alert, Oriented x3, Cranial nerves II-XII grossly intact, Normal Strength, Normal Sensation Psychological: Normal affect, Normal Mood Diagnostic/Tx/Re-eval Clinical Impression(s) from Imaging Studies Chest X-Ray 09/07/20 00:13 IMPRESSION: Normal x-ray examination of the chest. Electronically Signed: Harvey Linton DO at 0:56 EST Tel , Service support , Laboratory Data 09/06/20 09/07/20 09/07/20 23:55 00:20 00:20 WBC 8.2 RBC 5.19 Hgb 12.1 Hct 40.2 MCV 77.5 L MCH 23.3 L MCHC 30.1 L RDW Std Deviation 42.7 RDW Coeff of [place] 15.3 H Plt Count 247 MPV 10.3 Immature Gran % (Auto) 1.600 H Neut % (Auto) 55.8 Lymph % (Auto) 33.2 [place] % (Auto) 6.0 Eos % (Auto) 2.7 Baso % (Auto) 0.7 Absolute Neuts (auto) 4.6 Absolute Lymphs (auto) 2.73 Nucleated RBC % 0 Sodium 133 L Potassium 4.2 Chloride 98 Carbon Dioxide 32.0 Anion Gap 3 L BUN 14 Creatinine 0.89 Estim Creat Clear Calc 55.16 Est GFR (MDRD) Af Amer 85 Est GFR (MDRD) Non-Af 70 BUN/Creatinine Ratio 15.7 Glucose 308 H Calcium 8.8 Total Bilirubin 0.30 AST 59 H ALT 64 H Alkaline Phosphatase 214 H Troponin I 0.021 Total Protein 8.2 Albumin 3.0 L Globulin 5.2 H Albumin/Globulin Ratio 0.6 L Lipase 89 Urine Color Yellow Urine Clarity Cloudy Urine pH 6.0 Ur Specific [place] 1.025 Urine Protein 30 H Urine Glucose (UA) 100 H Urine Ketones 5 H Urine Occult Blood 250 H Urine Nitrite Positive H Urine Bilirubin Negative Urine Urobilinogen 1 H Ur Leukocyte Esterase 500 H Urine RBC 5-10 SEEN Urine WBC 10-25 SEEN Ur Squamous Epith Cells 0-5 SEEN Urine Bacteria 1+ Urine Mucus 0 SEEN - Rhythm Strip Rhythm Strip: Sinus Rhythm Rate: 82 Ectopy: None - EKG Initial EKG Interpretation: Sinus Rhythm, - - Normal sinus rhythm at a rate of 82 Bifascicular block?RBBB and Lafb Left axis deviation Normal intervals Normal ST segments No change prior to prior EKG on 03/23/2020 - Medical Decision Making Evaluated for symptoms consistent with UTI, yeast vaginitis as well as increased fatigue and blurry vision. Patient does have a history of poorly controlled diabetes mellitus. She is hemodynamically stable in the emergency room. Urinalysis is consistent with UTI. Culture sent. Patient is multiple antibiotic allergies and will be started on Cipro because of this. She is given first dose in the emergency room. She is not have any systemic symptoms consistent with pyelonephritis. I do not think she requires admission or IV antibiotics at this time. Patient is hyperglycemic and is given IV fluids in the emergency room. I do not think she needs insulin at this time. She does not have an elevated anion gap and I am not concerned for HH S or DKA at this time. Patient is treated with a dose of fluconazole. She be discharged home with 7-day course of Cipro as well as another dose of fluconazole to take when she finishes her antibiotics. Patient will follow up with her primary care doctor and flight information expediter. Patient is counseled on signs and symptoms requiring r eturn to the emergency room. Patient verbalizes agreement and understand this plan. Patient discharged home in stable and improved condition. ED Disposition - Plan for ED Patient: Disposition: Home or Assisted Living Diagnosis: UTI (urinary tract infection), Suzy vaginitis, Hyperglycemia due to diabetes mellitus Instructions: ED Diabetic Hyperglycemia, ED Bladder Infection, Female (Adult), ED SUZY VAGINITIS Prescriptions: Ciprofloxacin [Cipro] 500 mg PO BID #14 tab Transmission Status: Received by [facility]/pharmacy #[id number] Fluconazole 150 mg PO X1 #1 tab Transmission Status: Received by [facility]/pharmacy #[id number] Referrals: Tj Douglass MD [Primary Care Provider] - Additional Instructions: Drink plenty of fluids. Call with your primary care doctor for closer monitoring of your blood sugars. Return the emergency with any worsening symptoms. At this time you do not require hospitalization. You may take a probiotic or eat yogurt while on antibiotics to help prevent worsening yeast inf ection/diarrhea associated with antibiotics.
[2020-09-07] MEDS: 0.9% Normal Saline 1,000 ML 1000 ML IV (00:26)
[2020-09-07 00:28] LABS: Absolute Lymphocyte Count 2.73 X10^3/uL (0.83-4.51); Absolute Neutrophil Count 4.6 X10^3/uL (2.0-7.7); Basophil# 0.06 X10^3/uL; Basophil% 0.7 % (0-1); Eosinophil# 0.22 X10^3/uL; Eosinophils% 2.7 % (0-5); Hematocrit 40.2 % (37-47); Hemoglobin 12.1 g/dL (12.0-15.0); Lymphocyte # 2.73 X10^3/ul (4.0); Lymphocyte % 33.2 % (19-41); Mean Corp Hgb Conc 30.1 g/dL (32-36); Mean Corpuscular Hgb 23.3 pg (27.0-32.0); Mean Corpuscular Volume 77.5 fL (81-99); Mean Platelet Vol. 10.3 fl (6.2-12.0); Monocyte# 0.49 X10^3/uL; NRBC Flagged by Analyzer 0 % (0-5); Neutrophil % 55.8 % (47-70); Platelet Count 247 K/mm3 (150-450); RBC Distribution Width CV 15.3 % (11.6-14.6); RBC Distribution Width SD 42.7 fl (35.1-43.9); Red Blood Count 5.19 M/mm3 (4.2-5.4); White Blood Count 8.2 K/mm3 (4.4-11.0)
[2020-09-07 00:46] LABS: ALB/GLOB Ratio 0.6 RATIO (0.9-2.4); AST(SGOT) 59 U/L (15-37); Alanine Aminotransfer ALT/SGPT 64 U/L (13-56); Alkaline Phosphatase 214 U/L (45-117); Anion Gap 3 (5-15); BUN 14 mg/dL (7-18); BUN/Creat Ratio 15.7 RATIO (10-20); Calcium,Total 8.8 mg/dL (8.5-10.1); Chloride 98 mmol/L (98-107); Creatinine, Serum 0.89 mg/dL (0.55-1.02); EST Glomerular Filtration Rate 70 mL/min (>60); Est Glom Filt Rate - Afr Amer 85 mL/min (>60); Estimated Creatinine Clearance 55.16 ml/min; Globulin 5.2 g/dL (2.2-4.2); Glucose 308 mg/dL (74-106); Lipase 89 U/L (73-393); Potassium 4.2 mmol/L (3.5-5.1); Protein, Total 8.2 g/dL (6.4-8.2); Sodium Level 133 mmol/L (136-145)
[2020-09-07] MEDS: Ciprofloxacin 500 MG Tablet PO (01:51)
[2020-09-07] MEDS: FLUCONAZOLE 150 MG TABLET PO (01:52)
[2020-09-07 02:03] VITALS: BP 144/71; PULSE 75; RESP 18; O2SAT 98
== END 2020-09-07 02:06 | disposition home or self-care (01) ==
PROVIDERS: Emergency Provider Emergency Medicine; PCP Family Medicine
DX: N39.0 Urinary tract infection, site not specified (principal); B37.3 Candidiasis of vulva and vagina; E11.65 Type 2 diabetes mellitus with hyperglycemia; E03.9 Hypothyroidism, unspecified; E66.9 Obesity, unspecified; Z68.42 Body mass index [BMI] 45.0-49.9, adult; Z79.4 Long term (current) use of insulin; Z79.899 Other long term (current) drug therapy
CPT/HCPCS: 71045; 80053; 81001; 83690; 84484; 85025; 87077; 87086; 87088; 87186; 93005; 96360; 99283; J7030; A4216

== ENCOUNTER 2020-09-26 13:21 | Emergency (ER) | payer OTHER, SELFPAY ==
[2020-09-26 13:23] VITALS: BP 141/78; PULSE 101; RESP 17; TEMP 36.1; O2SAT 98; BMI 49.4
--- NOTE | 2020-09-26 13:42 | CT_ITS ---
STUDY: CT ABDOMEN AND PELVIS WITH CONTRAST REASON FOR EXAM: Female, 54 years old. Abdominal pain -- IV PO Contrast RADIATION DOSAGE (If Supplied By Facility): CTDIvol = ( 10.27 ) mGy, DLP = ( 1288.47 ) mGycm TECHNIQUE: Transaxial images were obtained from the dome of the diaphragm to the symphysis pubis with oral contrast. Oral and amp; IV Gastrografin and amp; 100mL Isovue-300 was administered. Sagittal and coronal images were reconstructed. Individualized dose optimization techniques were used for this CT. COMPARISON: CT abdomen and pelvis 03/16/2016 FINDINGS: The visualized lung bases are unremarkable. The visualized portions of the heart are within normal limits. There is mitral annular calcification. There is marked hepatomegaly with diffuse hepatic enlargement measuring up to 26.2 cm. There are surgical clips in the gallbladder fossa consistent with a prior cholecystectomy. There is moderate splenomegaly measuring up to 17.9 cm. Normal pancreas. Normal bilateral adrenal glands. Normal right kidney. Normal left kidney. Normal visualized stomach. Normal small intestine. Normal colon. There is non-visualization of the appendix. Normal abdominal aorta. Normal inferior vena cava. Normal retroperitoneum. Normal urinary bladder. There is an IUD in the uterus. There is a calcified fibroid in the right posterior lower uterine segment. Normal abdominal wall. Normal osseous structures. CT/Abdomen/Pelvis WITH Contrast IMPRESSION: No acute abdominal or pelvic pathology. Marked, stable hepatosplenomegaly Electronically Signed: Ayala Leigh MD at 16:21 EST Tel , Service support ,
[2020-09-26] MEDS: Morphine 4 MG/ML Syringe IV (13:58)
[2020-09-26] MEDS: Ondansetron 4 MG/2 ML Vial IV (13:58)
[2020-09-26] MEDS: 0.9% Normal Saline 1,000 ML 1000 ML IV (13:58)
[2020-09-26 14:09] LABS: Absolute Lymphocyte Count 2.22 X10^3/uL (0.83-4.51); Absolute Neutrophil Count 5.5 X10^3/uL (2.0-7.7); Basophil# 0.06 X10^3/uL; Basophil% 0.7 % (0-1); Eosinophil# 0.18 X10^3/uL; Eosinophils% 2.1 % (0-5); Hemoglobin 12.4 g/dL (12.0-15.0); Lymphocyte # 2.22 X10^3/ul (4.0); Lymphocyte % 25.9 % (19-41); Mean Corpuscular Hgb 23.6 pg (27.0-32.0); NRBC Flagged by Analyzer 0 % (0-5); Neutrophil # 5.45 X10^3/uL (2.7-7.7); Neutrophil % 63.6 % (47-70); Platelet Count 240 K/mm3 (150-450); RBC Distribution Width CV 15.6 % (11.6-14.6); Red Blood Count 5.26 M/mm3 (4.2-5.4); White Blood Count 8.6 K/mm3 (4.4-11.0)
[2020-09-26 14:33] LABS: ALB/GLOB Ratio 0.6 RATIO (0.9-2.4); AST(SGOT) 47 U/L (15-37); Alanine Aminotransfer ALT/SGPT 57 U/L (13-56); Albumin, Serum 3.3 g/dL (3.2-5.0); Alkaline Phosphatase 235 U/L (45-117); Anion Gap 4 (5-15); BUN 10 mg/dL (7-18); BUN/Creat Ratio 12.3 RATIO (10-20); Calcium,Total 9.3 mg/dL (8.5-10.1); Chloride 95 mmol/L (98-107); Creatinine, Serum 0.81 mg/dL (0.55-1.02); EST Glomerular Filtration Rate 78 mL/min (>60); Est Glom Filt Rate - Afr Amer 95 mL/min (>60); Estimated Creatinine Clearance 60.61 ml/min; Globulin 5.7 g/dL (2.2-4.2); Glucose 332 mg/dL (74-106); Lipase 108 U/L (73-393); Potassium 4.1 mmol/L (3.5-5.1); Sodium Level 132 mmol/L (136-145)
[2020-09-26 15:00] LABS: Mucous, Urine 0 SEEN /hpf (<or=2+)
[2020-09-26 15:02] LABS: Color, Urine Yellow (Yellow); Glucose, Dipstick 1000 mg/dl (Normal); Ketone-Dipstick Negative (Negative); Leukocyte Esterase-Dipstick 500 /ul (Negative); Nitrite-Dipstick Negative (Negative); Occult Blood-Urine 150 /ul (Negative); Protein-Dipstick 30 mg/dl (Negative); Specific Gravity, Urine 1.015 (1.002-1.030); Urine Bilirubin Dipstick Negative (Negative); Urine Clarity Sl. Cloudy (Clear); Urine Urobilinogen Normal (Normal); Urine pH 6.5 (5.0 - 8.0)
[2020-09-26 15:12] LABS: Bacteria 1+ /hpf (None Seen); Red Blood Cells-Urine 10-25 SEEN /hpf (0-5); Squamous Epithelial Cells - UA 0-5 SEEN /hpf (5-10); White Blood Cells 25-50 SEEN /hpf (0-5)
--- NOTE | 2020-09-26 15:40 | ED.DCSUM_ITS ---
- ER Visit Summary Date of Service: 09/26/20 Chief Complaint: Abdominal pain History of Present Illness: The patient is a 54 F who presents with abdominal pain that began yesterday. Patient states the pain is over the right upper and right lower quadrants. Patient describes the pain as aching. Patient states the pain has been constant. Patient states nothing makes it better and nothing makes it worse. Patient states it is gradually gotten worse. Patient denies any nausea or vomiting. Patient denies any diarrhea, melena, or hematochezia. Patient denies any dysuria or hematuria. Patient denies any abnormal vaginal bleeding or discharge. Physical Examination: Vital signs are stable. Patient is afebrile. Patient is in no acute distress. Oral mucosa is pink and moist. Neck is supple. Trachea is midline. There is no JVD. Heart was regular rate and rhythm. Lungs are clear and equal bilaterally. Abdomen is soft. Bowel sounds are normal. There is mild right upper and right lower quadrant tenderness. There is no rebound or guarding noted. Extremities are intact. There is no calf tenderness or edema. Cranial nerves II through XII are intact. There are no focal motor or sensory deficits. Test Results: CBC was normal. Comprehensive metabolic profile showed an elevated glucose of 332. Alk phos was slightly elevated to 35. Urinalysis showed leukocyte esterase of 500 with occult blood of 150. There were 25-50 white blood cells and 10-25 red blood cells and 1+ bacteria. CT scan of the abdomen and pelvis was obtained. There is no acute intra-abdominal process. This was interpreted by the radiologist and reviewed by myself. Emergency Department Course and Treatment: Patient was given a dose of morphine and Zofran here. Patient is resting comfortably on reevaluation. Patient was given her first dose of Macrobid here. Patient was given a prescription for Macrobid. Patient was instructed to follow-up with her primary care physician in 5 to 7 days. Patient understood and was agreeable with the plan. All questions were answered. Disposition: Discharge home Impression: 1. Urinary tract infection This note was generated with [employer] software. It may contain incorrect words, spelling, and punctuation that were not noted in review of the chart prior to signing ED Disposition - Plan for ED Patient: Disposition: Home or Assisted Living Diagnosis: Urinary tract infection Instructions: ED Bladder Infection, Female (Adult) Prescriptions: Nitrofurantoin Macrocrystals [Macrobid] 100 mg PO Q12 #14 cap Transmission Status: Pending to [id number] Referrals: Tj Douglass MD [Primary Care Provider] - 5-7 Days
[2020-09-26] MEDS: Nitrofurantoin Macrocrystals 100 MG Capsule PO (17:15)
[2020-09-26 17:18] VITALS: BP 142/82; PULSE 71; RESP 18; O2SAT 98
== END 2020-09-26 17:19 | disposition home or self-care (01) ==
PROVIDERS: Emergency Provider Emergency Medicine; PCP Family Medicine
DX: N39.0 Urinary tract infection, site not specified (principal); I10 Essential (primary) hypertension; E11.9 Type 2 diabetes mellitus without complications; E03.9 Hypothyroidism, unspecified; E66.9 Obesity, unspecified; Z68.42 Body mass index [BMI] 45.0-49.9, adult; Z79.4 Long term (current) use of insulin; Z79.899 Other long term (current) drug therapy
CPT/HCPCS: 74177; 80053; 81001; 83690; 85025; 96361; 96374; 96375; 99285; J7030; Q9967; A4216; J2405

== ENCOUNTER 2021-03-28 22:42 | Emergency (ER) | payer OTHER, SELFPAY ==
[2021-03-28 22:43] VITALS: BP 114/70; PULSE 90; RESP 12; TEMP 35.9; O2SAT 94; BMI 44.9
[2021-03-28 23:16] LABS: Bedside Glucose 152 mg/dL (70-110)
[2021-03-28 23:35] LABS: Absolute Neutrophil Count 5.2 X10^3/uL (2.0-7.7); Basophil# 0.06 X10^3/uL; Basophil% 0.7 % (0-1); Eosinophil# 0.25 X10^3/uL; Eosinophils% 2.7 % (0-5); Hematocrit 38.1 % (37-47); Lymphocyte % 30.5 % (19-41); Mean Corp Hgb Conc 31.5 g/dL (32-36); Mean Corpuscular Volume 79.4 fL (81-99); Monocyte# 0.73 X10^3/uL; NRBC Flagged by Analyzer 0 % (0-5); Neutrophil # 5.16 X10^3/uL (2.7-7.7); Neutrophil % 56.1 % (47-70); Platelet Count 311 K/mm3 (150-450); RBC Distribution Width CV 14.9 % (11.6-14.6); RBC Distribution Width SD 43.1 fl (35.1-43.9); White Blood Count 9.2 K/mm3 (4.4-11.0)
[2021-03-28 23:36] LABS: Anion Gap 2 (5-15); BUN 18 mg/dL (7-18); BUN/Creat Ratio 28.1 RATIO (10-20); Calcium,Total 9.4 mg/dL (8.5-10.1); Chloride 102 mmol/L (98-107); Creatinine, Serum 0.64 mg/dL (0.55-1.02); EST Glomerular Filtration Rate 103 mL/min (>60); Est Glom Filt Rate - Afr Amer 124 mL/min (>60); Estimated Creatinine Clearance 75.83 ml/min; Glucose 147 mg/dL (74-106); Potassium 4.1 mmol/L (3.5-5.1); Sodium Level 135 mmol/L (136-145)
[2021-03-28 23:39] LABS: Mucous, Urine 0 SEEN /hpf (<or=2+); Red Blood Cells-Urine 0 SEEN /hpf (0-5)
[2021-03-28 23:42] LABS: Color, Urine Yellow (Yellow); Glucose, Dipstick Normal (Normal); Ketone-Dipstick Negative (Negative); Leukocyte Esterase-Dipstick 500 /ul (Negative); Nitrite-Dipstick Positive (Negative); Occult Blood-Urine 250 /ul (Negative); Protein-Dipstick 30 mg/dl (Negative); Specific Gravity, Urine 1.025 (1.002-1.030); Urine Bilirubin Dipstick Negative (Negative); Urine Clarity Cloudy (Clear); Urine Urobilinogen Normal (Normal)
[2021-03-28 23:48] LABS: Bacteria 4+ /hpf (None Seen); Squamous Epithelial Cells - UA 5-10 SEEN /hpf (5-10); White Blood Cells >100 SEEN /hpf (0-5)
[2021-03-29] MEDS: 0.9% Normal Saline 1,000 ML 999 ML IV (00:03)
[2021-03-29] MEDS: Ondansetron 4 MG/2 ML Vial IV (00:03)
[2021-03-29] MEDS: Morphine 4 MG/ML Syringe IV (00:04)
[2021-03-29] MEDS: Ciprofloxacin 400 MG/200 ML BAG 200 MG IV (00:39)
[2021-03-29 01:30] LABS: Lipase 545 U/L (73-393)
[2021-03-29 01:43] LABS: AST(SGOT) 27 U/L (15-37); Alanine Aminotransfer ALT/SGPT 32 U/L (13-56); Albumin, Serum 3.2 g/dL (3.2-5.0); Alkaline Phosphatase 152 U/L (45-117); Bilirubin, Direct 0.14 mg/dL (0.00-0.30); Protein, Total 9.2 g/dL (6.4-8.2)
--- NOTE | 2021-03-29 02:03 | EDS_ITS ---
HPI History of Present Illness Chief Complaint: Abd Pain [facility] Medical History (Updated 03/29/21 @ 02:[address] Natalya Chun MD) Anemia Arthritis Back pain Bloody stool Diabetes History of frequent headaches Shoulder pain SOB (shortness of breath) Thyroid disease Thyroid disease Home Medications albuterol sulfate 2.5 mg INHALATION Q4H PRN PRN 04/11/18 [History Last Taken Unknown] lisinopril 2.5 mg tablet 2.5 mg PO DAILY 04/11/18 [History Last Taken 10/06/19] fluoxetine 40 mg PO DAILY 02/12/19 [History Last Taken 10/06/19] atorvastatin 20 mg PO QHS 10/06/19 [History Last Taken 10/05/19] levothyroxine 350 mcg PO DAILY 10/06/19 [History Last Taken 10/06/19] acetaminophen 650 mg PO Q6H PRN PRN tab 10/09/19 [Rx Last Taken Unknown] insulin lispro See Protocol SUBCUT TIDAC #1 insuln.pen 10/09/19 [Rx Last Taken Unknown] nabumetone 500 mg PO DAILY 03/23/20 [History Last Taken Unknown] insulin degludec 140 unit SQ DAILY 06/13/20 [History Last Taken Unknown] docusate sodium 100 mg PO DAILY PRN 09/07/20 [History Last Taken Unknown] fluconazole 50 mg PO DAILY 09/26/20 [History Last Taken Unknown] nitrofurantoin monohyd/m-cryst 100 mg PO Q12 #14 cap 09/26/20 [Rx Last Taken Unknown] ciprofloxacin HCl [Cipro] 500 mg PO BID #14 tab 03/29/21 [Rx Last Taken Unknown] metformin 500 mg PO BID 03/29/21 [History Last Taken Unknown] tramadol 50 mg PO TID PRN #14 tab 03/29/21 [Rx Last Taken Unknown] Allergy/AdvReac Type Severity Reaction Status Date / Time codeine Allergy Angioedema Verified 03/28/21 22:46 Penicillins Allergy Rash Verified 03/28/21 22:46 Sulfa (Sulfonamide Allergy Rash Verified 03/28/21 22:46 Antibiotics) sulfamethoxazole [Bactrim] Allergy Unknown Verified 03/28/21 22:46 trimethoprim [Bactrim] Allergy Unknown Verified 03/28/21 22:46 Family History Other Cancer Surgical History (Updated 03/29/21 @ 00:19 by Swathi Meek) Hx of cholecystectomy Social History (Updated 01/25/20 @ 12:17 by Jeramy CUELLAR, PA) Smoking Status: Former smoker alcohol intake: current EXAM Physical Exam Const Vital Signs: 03/28/21 22:43 Temperature 96.6 F L Temperature Source Temporal Pulse Rate 90 Respiratory Rate 12 Blood Pressure 114/70 Blood Pressure Mean 84 Pulse Ox 94 Oxygen Delivery Method Room Air MDM MDM Lab Data Labs: Laboratory Results - last 24 hr 03/28/21 03/28/21 03/28/21 23:10 23:10 23:10 WBC 9.2 RBC 4.80 Hgb 12.0 Hct 38.1 MCV 79.4 L MCH 25.0 L MCHC 31.5 L RDW Std Deviation 43.1 RDW Coeff of [place] 14.9 H Plt Count 311 MPV 10.0 Immature Gran % (Auto) 2.000 H Neut % (Auto) 56.1 Lymph % (Auto) 30.5 [place] % (Auto) 8.0 Eos % (Auto) 2.7 Baso % (Auto) 0.7 Absolute Neuts (auto) 5.2 Absolute Lymphs (auto) 2.80 Nucleated RBC % 0 Sodium 135 L Potassium 4.1 Chloride 102 Carbon Dioxide 31.0 Anion Gap 2 L BUN 18 Creatinine 0.64 Estim Creat Clear Calc 75.83 Est GFR (MDRD) Af Amer 124 Est GFR (MDRD) Non-Af 103 BUN/Creatinine Ratio 28.1 H Glucose 147 H Calcium 9.4 Total Bilirubin 0.40 Direct Bilirubin 0.14 AST 27 ALT 32 Alkaline Phosphatase 152 H Total Protein 9.2 H Albumin 3.2 Globulin 6.0 H Lipase Urine Color Urine Clarity Urine pH Ur Specific [place] Urine Protein Urine Glucose (UA) Urine Ketones Urine Occult Blood Urine Nitrite Urine Bilirubin Urine Urobilinogen Ur Leukocyte Esterase Urine RBC Urine WBC Ur Squamous Epith Cells Urine Bacteria Urine Mucus POC Glucose 03/28/21 03/28/21 03/28/21 23:10 23:12 23:25 WBC RBC Hgb Hct MCV MCH MCHC RDW Std Deviation RDW Coeff of [place] Plt Count MPV Immature Gran % (Auto) Neut % (Auto) Lymph % (Auto) [place] % (Auto) Eos % (Auto) Baso % (Auto) Absolute Neuts (auto) Absolute Lymphs (auto) Nucleated RBC % Sodium Potassium Chloride Carbon Dioxide Anion Gap BUN Creatinine Estim Creat Clear Calc Est GFR (MDRD) Af Amer Est GFR (MDRD) Non-Af BUN/Creatinine Ratio Glucose Calcium Total Bilirubin Direct Bilirubin AST ALT Alkaline Phosphatase Total Protein Albumin Globulin Lipase 545 H Urine Color Yellow Urine Clarity Cloudy Urine pH 5.0 Ur Specific [place] 1.025 Urine Protein 30 H Urine Glucose (UA) Normal Urine Ketones Negative Urine Occult Blood 250 H Urine Nitrite Positive H Urine Bilirubin Negative Urine Urobilinogen Normal Ur Leukocyte Esterase 500 H Urine RBC 0 SEEN Urine WBC >100 SEEN Ur Squamous Epith Cells 5-10 SEEN Urine Bacteria 4+ Urine Mucus 0 SEEN POC Glucose 152 H Discharge Plan Triage Chief Complaint: Abd Pain ED Provider: Natalya Chun Dx/Rx/DC Orders Clinical Impression: Elevated lipase, UTI (urinary tract infection) Instructions: ED CYSTITIS Female Adult Prescriptions: New ciprofloxacin HCl [Cipro] 500 mg tablet 500 mg PO BID Qty: 14 RF: 0 tramadol 50 mg tablet 50 mg PO TID PRN (Reason: pain) Qty: 14 RF: 0 No Action albuterol sulfate 2.5 mg /3 mL (0.083 %) solution for nebulization 2.5 mg INHALATION Q4H PRN PRN (Reason: Sob &/Or Wheezing) RF: 0 lisinopril 2.5 mg tablet 2.5 mg PO DAILY RF: 0 fluoxetine 40 MG capsule 40 mg PO DAILY RF: 0 atorvastatin 20 MG tablet 20 mg PO QHS RF: 0 levothyroxine 200 MCG tablet 350 mcg PO DAILY RF: 0 acetaminophen 325 MG tablet 650 mg PO Q6H PRN PRN (Reason: Pain Score 1-10/Temp > 100.7 F) RF: 0 insulin lispro 100 UNIT/ML insulin pen See Protocol unit subcut TIDAC Qty: 1 RF: 0 nabumetone 500 MG tablet 500 mg PO DAILY RF: 0 insulin degludec 200 UNIT/ML insulin pen 140 unit SQ DAILY RF: 0 docusate sodium 100 MG capsule 100 mg PO DAILY PRN (Reason: Constipation) RF: 0 fluconazole 50 MG tablet 50 mg PO DAILY RF: 0 nitrofurantoin monohyd/m-cryst 100 MG capsule 100 mg PO Q12 Qty: 14 RF: 0 metformin 500 mg tablet extended release 24 hr 500 mg PO BID RF: 0 Primary Care Provider: Tj Douglass Referrals: Tj Douglass MD [Primary Care Provider] - 5-7 Days Activity Restrictions/Additional Instructions: As discussed, your lipase is elevated which is a measure of your pancreas function. This is located in the upper abdomen in the area of your described pain. The lab test is not quite elevated enough to be considered pancreatitis. Please follow bland diet as discussed. Return for worsened pain, nausea, vomiting, fevers. Disposition Disposition: Home, Self Care
[2021-03-29 02:21] VITALS: PULSE 79; RESP 14; O2SAT 99
== END 2021-03-29 02:22 | disposition home or self-care (01) ==
PROVIDERS: Emergency Provider Emergency Medicine; PCP Family Medicine
DX: N39.0 Urinary tract infection, site not specified (principal); R74.8 Abnormal levels of other serum enzymes; E11.9 Type 2 diabetes mellitus without complications; E07.9 Disorder of thyroid, unspecified; M19.90 Unspecified osteoarthritis, unspecified site; Z79.4 Long term (current) use of insulin; Z79.899 Other long term (current) drug therapy; Z87.891 Personal history of nicotine dependence
CPT/HCPCS: 80048; 80076; 81001; 82962; 83690; 85025; 87086; 87088; 87186; 96365; 96366; 96375; 99283; J7030; A4216; J0744; J2405

== ENCOUNTER 2021-03-31 19:17 | Emergency (ER) | payer OTHER, SELFPAY ==
[2021-03-31 19:17] VITALS: BP 131/67; PULSE 95; RESP 18; TEMP 36.2; O2SAT 98; BMI 46.8
[2021-03-31 19:39] LABS: Color, Urine Yellow (Yellow); Glucose, Dipstick Normal (Normal); Ketone-Dipstick Negative (Negative); Leukocyte Esterase-Dipstick 100 /ul (Negative); Mucous, Urine 0 SEEN /hpf (<or=2+); Nitrite-Dipstick Negative (Negative); Occult Blood-Urine 150 /ul (Negative); Protein-Dipstick 15 mg/dl (Negative); Specific Gravity, Urine 1.025 (1.002-1.030); Urine Bilirubin Dipstick Negative (Negative); Urine Clarity Sl. Cloudy (Clear); Urine Urobilinogen Normal (Normal)
[2021-03-31 19:46] LABS: White Blood Cells 25-50 SEEN /hpf (0-5)
[2021-03-31 19:48] LABS: Red Blood Cells-Urine 25-50 SEEN /hpf (0-5); Squamous Epithelial Cells - UA 5-10 SEEN /hpf (5-10)
[2021-03-31 19:49] LABS: Bacteria RARE /hpf (None Seen)
[2021-03-31] MEDS: 0.9% Normal Saline 1,000 ML 1000 ML IV (20:42)
[2021-03-31] MEDS: Ondansetron 4 MG/2 ML Vial IV (20:42)
[2021-03-31 20:50] LABS: Absolute Lymphocyte Count 2.57 X10^3/uL (0.83-4.51); Absolute Neutrophil Count 4.7 X10^3/uL (2.0-7.7); Basophil# 0.04 X10^3/uL; Basophil% 0.5 % (0-1); Eosinophil# 0.19 X10^3/uL; Eosinophils% 2.4 % (0-5); Hematocrit 36.4 % (37-47); Hemoglobin 11.7 g/dL (12.0-15.0); Lymphocyte # 2.57 X10^3/ul (0.83-4.51); Lymphocyte % 31.8 % (19-41); Mean Corp Hgb Conc 32.1 g/dL (32-36); Mean Corpuscular Hgb 25.4 pg (27.0-32.0); Mean Corpuscular Volume 79.1 fL (81-99); Mean Platelet Vol. 9.6 fl (6.2-12.0); Monocyte# 0.54 X10^3/uL; Monocyte% 6.7 % (0-10); NRBC Flagged by Analyzer 0 % (0-5); Neutrophil # 4.69 X10^3/uL (2.7-7.7); Platelet Count 280 K/mm3 (150-450); RBC Distribution Width CV 14.7 % (11.6-14.6); RBC Distribution Width SD 42.3 fl (35.1-43.9); White Blood Count 8.1 K/mm3 (4.4-11.0)
--- NOTE | 2021-03-31 21:00 | EDS_ITS ---
HPI HPI - GI History of Present Illness Chief Complaint: Abd Pain Informant: patient Abdominal Pain/Flank Pain Onset: Days Context: Gradual Onset Timing: Continuous and Waxes and wanes Quality: - (Pain right and left upper quadrant) Location: RUQ and LUQ Current Severity: Mild Maximum Severity: Severe Worsened by: Food; Not Worsened By Movement Relieved by: Nothing Nausea/Vomiting/Emesis GI Symptom: Positive for Nausea; Negative for Vomiting Diarrhea/Melena/Hematochezia GI Symptom: Negative for Diarrhea, Melena and Hematochezia Associated Symptoms Associated Symptoms: Negative for Dysuria, Frequency, Hematuria and Urgency Narrative Narrative: Patient is a middle-aged woman who was seen on March 29. She was diagnosed with pancreatitis. Lipase was 545. She has history of cholecystectomy. She denies alcohol use. She denies fever, chills night sweats. She denies cardiac respiratory symptoms. She denies black or maroon- colored stool. She denies hematemesis or coffee-ground emesis. Past history hypertension, hyperlipidemia, morbid obesity and pancreatitis. Review of laboratory work also would indicate that she had a urinary fraction. Prior similar symptoms: Yes Recent Illness/Hospitalization: Yes [facility] Medical History Anemia Arthritis Back pain Bloody stool Diabetes History of frequent headaches Shoulder pain SOB (shortness of breath) Thyroid disease Thyroid disease Home Medications albuterol sulfate 2.5 mg INHALATION Q4H PRN PRN 04/11/18 [History Last Taken Unknown] lisinopril 2.5 mg tablet 2.5 mg PO DAILY 04/11/18 [History Last Taken 10/06/19] fluoxetine 40 mg PO DAILY 02/12/19 [History Last Taken 10/06/19] atorvastatin 20 mg PO QHS 10/06/19 [History Last Taken 10/05/19] levothyroxine 350 mcg PO DAILY 10/06/19 [History Last Taken 10/06/19] acetaminophen 650 mg PO Q6H PRN PRN tab 10/09/19 [Rx Last Taken Unknown] insulin lispro See Protocol SUBCUT TIDAC #1 insuln.pen 10/09/19 [Rx Last Taken Unknown] nabumetone 500 mg PO DAILY 03/23/20 [History Last Taken Unknown] insulin degludec 140 unit SQ DAILY 06/13/20 [History Last Taken Unknown] docusate sodium 100 mg PO DAILY PRN 09/07/20 [History Last Taken Unknown] fluconazole 50 mg PO DAILY 09/26/20 [History Last Taken Unknown] nitrofurantoin monohyd/m-cryst 100 mg PO Q12 #14 cap 09/26/20 [Rx Last Taken Unknown] ciprofloxacin HCl [Cipro] 500 mg PO BID #14 tab 03/29/21 [Rx Last Taken Unknown] metformin 500 mg PO BID 03/29/21 [History Last Taken Unknown] tramadol 50 mg PO TID PRN #14 tab 03/29/21 [Rx Last Taken Unknown] ondansetron 4 mg PO Q8H PRN PRN #10 tab 03/31/21 [Rx Last Taken Unknown] Allergy/AdvReac Type Severity Reaction Status Date / Time codeine Allergy Angioedema Verified 03/31/21 19:20 Penicillins Allergy Rash Verified 03/31/21 19:20 Sulfa (Sulfonamide Allergy Rash Verified 03/31/21 19:20 Antibiotics) sulfamethoxazole [Bactrim] Allergy Unknown Verified 03/31/21 19:20 trimethoprim [Bactrim] Allergy Unknown Verified 03/31/21 19:20 Family History Other Cancer Surgical History Hx of cholecystectomy Social History (Updated 03/31/21 @ 21:[address] Pranav Ward MD) household members: none Smoking Status: Former smoker alcohol intake: current details: Patient states she does not drink however nurse documents and prior note do substance use type: does not use ROS ROS ED Constitutional Constitutional ED: Denies chills, fever(s), subjective or sweats ENT ENT ED: Denies ear pain, rhinorrhea or sore throat Cardiovascular Cardiovascular: Denies chest pain or palpitations Respiratory/Chest Respiratory/Chest: Denies cough, dyspnea, dyspnea on exertion or sputum Gastrointestinal Gastrointestinal: Reports abdominal pain and nausea; Denies constipation, diarrhea or vomiting Genitourinary Genitourinary ED: Denies dysuria, hematuria or urinary frequency Musculoskeletal Musculoskeletal: Reports back pain; Denies arthralgias, myalgias or neck pain Integumentary Denies abscess, Abrasions or rash Neurologic Neurologic: Denies headache(s) or weakness Endocrine Endocrinology: Denies polydipsia, polyphagia or polyuria EXAM Physical Exam Const Vital Signs: 03/31/21 19:17 Temperature 97.2 F L Temperature Source Temporal Pulse Rate 95 Respiratory Rate 18 Blood Pressure 131/67 H Blood Pressure Mean 88 Pulse Ox 98 Oxygen Delivery Method Room Air Positive well nourished, well developed and obese General Appearance ED: well developed Nutritional Appearance: obese HEENT Reports TM's clear and dry mucous membranes normocephalic and atraumatic Tympanic Membrane ED: Yes TM's clear Mouth ED: Yes dry mucous membranes Mouth: dry mucous membranes Eyes PERRL and EOMs intact bilaterally General Eye ED: Negative for pale conjunctiva or scleral icterus Neck no lymphadenopathy, supple and no JVD Resp normal respiratory effort and clear to auscultation bilaterally Cardio regular rate, regular rhythm, S1 normal heart sound, S2 normal heart sound and no murmurs GI non-distended and no masses; Negative for non-tender Inspection: abdominal distention Auscultation: hypoactive bowel sounds; Negative for normoactive bowel sounds Palpation: soft, tender LUQ and RUQ and guarding LUQ; Negative for rigid or rebound tenderness present Back/Spine no CVA tenderness Cervical Spine: Negative for cervical spine tenderness Thoracic Spine / Upper Back: Negative for thoracic spinal tenderness Lumbar Spine / Lower Back: Negative for lumbar spinal tenderness Extremity full ROM General Extremety ED: Negative for edema or tenderness General Extremity: Negative for edema Neuro CN's II-XII intact bilaterally and no sensory deficits noted Sensorium / Orientation: alert Motor Exam: strength 5/5 throughout Psych Mood & Affect: depressed Skin no wounds Lesions: no lesions Rashes: no rashes MDM MDM MDM Narrative Medical decision making narrative: Patient may have gastritis, alcoholic liver disease, pancreatitis or abdominal pain of unknown etiology. Morphine was ordered however patient has angioedema to morphine. She was given Zofran for her nausea. Will reevaluate. Since patient has not improved with outpatient therapy unable to eat will call hospitalist for admission for pancreatitis. Hospitalist recommended CAT scan since lipase is only 2 times normal. CAT scan reveals no evidence of pancreatitis. Lab Data Attestation: I reviewed the patient's lab results. Lab results narrative: Urine is a contaminated specimen. White count is unremarkable. There is evidence of mild anemia. Laboratory work testing with pancreatitis. Lipase is 961. There is no evidence of urinary tract infection. Lipase is approximately 2 times normal. After discussion with hospitalist he requested CT of the abdomen to obtain to see if there is evidence of pancreatitis. There is no evidence of pancreatitis. Patient is elevated lipase is of unknown etiology. This patient had no vomiting here and there is no evidence of pancreatitis on the CAT scan she will be discharged to home. Labs: Laboratory Results - last 24 hr 03/31/21 03/31/21 03/31/21 19:30 20:40 20:40 WBC 8.1 RBC 4.60 Hgb 11.7 L Hct 36.4 L MCV 79.1 L MCH 25.4 L MCHC 32.1 RDW Std Deviation 42.3 RDW Coeff of [place] 14.7 H Plt Count 280 MPV 9.6 Immature Gran % (Auto) 0.600 Neut % (Auto) 58.0 Lymph % (Auto) 31.8 [place] % (Auto) 6.7 Eos % (Auto) 2.4 Baso % (Auto) 0.5 Absolute Neuts (auto) 4.7 Absolute Lymphs (auto) 2.57 Nucleated RBC % 0 Sodium 135 L Potassium 4.2 Chloride 101 Carbon Dioxide 30.0 Anion Gap 4 L BUN 24 H Creatinine 0.75 Estim Creat Clear Calc 64.71 Est GFR (MDRD) Af Amer 104 Est GFR (MDRD) Non-Af 86 BUN/Creatinine Ratio 32.1 H Glucose 111 H Calcium 9.0 Total Bilirubin 0.30 AST 19 ALT 27 Alkaline Phosphatase 135 H Total Protein 8.2 Albumin 2.8 L Globulin 5.4 H Albumin/Globulin Ratio 0.5 L Lipase 961 H Urine Color Yellow Urine Clarity Sl. Cloudy Urine pH 5.0 Ur Specific [place] 1.025 Urine Protein 15 H Urine Glucose (UA) Normal Urine Ketones Negative Urine Occult Blood 150 H Urine Nitrite Negative Urine Bilirubin Negative Urine Urobilinogen Normal Ur Leukocyte Esterase 100 H Urine RBC 25-50 SEEN Urine WBC 25-50 SEEN Ur Squamous Epith Cells 5-10 SEEN Urine Bacteria RARE Urine Mucus 0 SEEN Radiography Diagnostic Testing: Radiology Impression Abdomen/Pelvis CT 03/31/21 22:31 IMPRESSION: Gas in the urinary bladder without other finding of cystitis. Correlate with recent instrumentation. Moderate splenomegaly. Electronically Signed: Joel Man MD at 23:19 EDT Tel , Service support , Discharge Plan Triage Chief Complaint: Abd Pain ED Provider: Pranav Ward Dx/Rx/DC Orders Clinical Impression: Upper abdominal pain of unknown etiology, Elevated lipase Instructions: ED Abdominal Pain Unkn Cause Fem Prescriptions: New ondansetron [ondansetron] 4 MG tablet 4 mg PO Q8H PRN PRN (Reason: Nausea) Qty: 10 RF: 0 No Action albuterol sulfate 2.5 mg /3 mL (0.083 %) solution for nebulization 2.5 mg INHALATION Q4H PRN PRN (Reason: Sob &/Or Wheezing) RF: 0 lisinopril 2.5 mg tablet 2.5 mg PO DAILY RF: 0 fluoxetine 40 MG capsule 40 mg PO DAILY RF: 0 atorvastatin 20 MG tablet 20 mg PO QHS RF: 0 levothyroxine 200 MCG tablet 350 mcg PO DAILY RF: 0 acetaminophen 325 MG tablet 650 mg PO Q6H PRN PRN (Reason: Pain Score 1-10/Temp > 100.7 F) RF: 0 insulin lispro 100 UNIT/ML insulin pen See Protocol unit subcut TIDAC Qty: 1 RF: 0 nabumetone 500 MG tablet 500 mg PO DAILY RF: 0 insulin degludec 200 UNIT/ML insulin pen 140 unit SQ DAILY RF: 0 docusate sodium 100 MG capsule 100 mg PO DAILY PRN (Reason: Constipation) RF: 0 fluconazole 50 MG tablet 50 mg PO DAILY RF: 0 nitrofurantoin monohyd/m-cryst 100 MG capsule 100 mg PO Q12 Qty: 14 RF: 0 metformin 500 mg tablet extended release 24 hr 500 mg PO BID RF: 0 ciprofloxacin HCl [Cipro] 500 mg tablet 500 mg PO BID Qty: 14 RF: 0 tramadol 50 mg tablet 50 mg PO TID PRN (Reason: pain) Qty: 14 RF: 0 Primary Care Provider: Tj Douglass Referrals: Tj Douglass MD [Primary Care Provider] - 3-5 Days if not improving Disposition Disposition: Home, Self Care
[2021-03-31 21:19] LABS: ALB/GLOB Ratio 0.5 RATIO (0.9-2.4); AST(SGOT) 19 U/L (15-37); Alanine Aminotransfer ALT/SGPT 27 U/L (13-56); Albumin, Serum 2.8 g/dL (3.2-5.0); Alkaline Phosphatase 135 U/L (45-117); Anion Gap 4 (5-15); BUN 24 mg/dL (7-18); BUN/Creat Ratio 32.1 RATIO (10-20); Chloride 101 mmol/L (98-107); Creatinine, Serum 0.75 mg/dL (0.55-1.02); EST Glomerular Filtration Rate 86 mL/min (>60); Est Glom Filt Rate - Afr Amer 104 mL/min (>60); Estimated Creatinine Clearance 64.71 ml/min; Globulin 5.4 g/dL (2.2-4.2); Glucose 111 mg/dL (74-106); Lipase 961 U/L (73-393); Potassium 4.2 mmol/L (3.5-5.1); Protein, Total 8.2 g/dL (6.4-8.2); Sodium Level 135 mmol/L (136-145)
--- NOTE | 2021-03-31 22:31 | CT_ITS ---
STUDY: CT ABDOMEN AND PELVIS WITH CONTRAST REASON FOR EXAM: Female, 55 years old. Left upper quadrant pain, pancreatitis RADIATION DOSAGE (If Supplied By Facility): CTDIvol = ( 18.73 ) mGy, DLP = ( 1226.00 ) mGycm TECHNIQUE: Transaxial images were obtained from the dome of the diaphragm to the symphysis pubis without oral contrast. IV 100mL Isovue-370 was administered. Sagittal and coronal images were reconstructed. Individualized dose optimization techniques were used for this CT. COMPARISON: 09/26/2020 FINDINGS: The visualized lung bases are unremarkable. Coronary artery calcifications partially visualized. Normal liver. There are surgical clips in the gallbladder fossa consistent with a prior cholecystectomy. Moderate splenomegaly. There are multiple benign calcified granulomata of the spleen. Normal appearance of pancreas. No peripancreatic fluid. Normal bilateral adrenal glands. Normal right kidney. Normal left kidney. Normal visualized stomach. Normal small intestine. Normal colon. The appendix is visualized and appears normal. Normal abdominal aorta. Normal inferior vena cava. Normal retroperitoneum. There is a small amount of gas in the urinary bladder. No urinary bladder wall thickening. IUD is noted in the uterus. Normal abdominal wall. Normal osseous structures. CT/Abdomen/Pelvis W IV Cont ONLY IMPRESSION: Gas in the urinary bladder without other finding of cystitis. Correlate with recent instrumentation. Moderate splenomegaly. Electronically Signed: Joel Man MD at 23:19 EDT Tel , Service support ,
[2021-03-31] MEDS: morphine 8 MG/ML Syringe 6 MG IV (22:44)
[2021-03-31 23:50] VITALS: BP 133/64; PULSE 72; RESP 15; O2SAT 99
== END 2021-03-31 23:51 | disposition home or self-care (01) ==
PROVIDERS: Emergency Provider Emergency Medicine; PCP Family Medicine
DX: R10.11 Right upper quadrant pain (principal); R10.12 Left upper quadrant pain; R74.8 Abnormal levels of other serum enzymes; I10 Essential (primary) hypertension; E11.9 Type 2 diabetes mellitus without complications; E78.5 Hyperlipidemia, unspecified; D64.9 Anemia, unspecified; M19.90 Unspecified osteoarthritis, unspecified site; E66.01 Morbid (severe) obesity due to excess calories; Z68.42 Body mass index [BMI] 45.0-49.9, adult; Z90.49 Acquired absence of other specified parts of digestive tract; Z79.4 Long term (current) use of insulin; Z79.899 Other long term (current) drug therapy; Z87.891 Personal history of nicotine dependence
CPT/HCPCS: 74177; 80053; 81001; 83690; 85025; 96361; 96374; 96375; 99283; J7030; Q9967; A4216; J2405

== ENCOUNTER 2021-06-14 09:40 | Emergency (ER) | payer OTHER, SELFPAY ==
[2021-06-14 09:42] VITALS: BP 138/78; PULSE 79; RESP 16; TEMP 36.1; O2SAT 98; BMI 44.9
--- NOTE | 2021-06-14 09:59 | EDS_ITS ---
HPI History of Present Illness Chief Complaint: Allergic Reaction Detail of Chief Complaint: Possible allergic reaction to medication Informant: patient Narrative Narrative: Patient presents the emergency department with possible allergic re action to a medication. Patient states that she was started on Macrobid yesterday for UTI. Patient noticed that last evening that she was having some swelling to her face as well as her hands and her feet. Patient feels like she is speaking differently and has some mild throat sensation or feeling like there is phlegm in the back of her throat. She denies shortness of breath or difficulty breathing. Patient last took the medication yesterday. Patient was seen at urgent care and referred to the emergency department this morning. Patient has history of diabetes and hypothyroidism. [facility] Medical History (Updated 06/14/21 @ 10:[address] Darell Mendoza DO) Anemia Arthritis Back pain Bloody stool Diabetes History of frequent headaches Hypothyroid Shoulder pain SOB (shortness of breath) Thyroid disease Thyroid disease Home Medications albuterol sulfate 2.5 mg INHALATION Q4H PRN PRN 04/11/18 [History Last Taken Unknown] lisinopril 2.5 mg tablet 2.5 mg PO DAILY 04/11/18 [History Last Taken 10/06/19] fluoxetine 40 mg PO DAILY 02/12/19 [History Last Taken 10/06/19] atorvastatin 20 mg PO QHS 10/06/19 [History Last Taken 10/05/19] levothyroxine 350 mcg PO DAILY 10/06/19 [History Last Taken 10/06/19] acetaminophen 650 mg PO Q6H PRN PRN tab 10/09/19 [Rx Last Taken Unknown] insulin lispro See Protocol SUBCUT TIDAC #1 insuln.pen 10/09/19 [Rx Last Taken Unknown] insulin degludec 100 unit SQ DAILY 06/13/20 [History Last Taken Unknown] docusate sodium 100 mg PO DAILY PRN 09/07/20 [History Last Taken Unknown] metformin 500 mg PO BID 03/29/21 [History Last Taken Unknown] ondansetron 4 mg PO Q8H PRN PRN #10 tab 03/31/21 [Rx Last Taken Unknown] ciprofloxacin HCl 500 mg PO BID #14 tablet 06/14/21 [Rx Last Taken Unknown] prednisone 20 mg PO BID #6 tab 06/14/21 [Rx Last Taken Unknown] Allergy/AdvReac Type Severity Reaction Status Date / Time codeine Allergy Angioedema Verified 03/31/21 19:20 nitrofurantoin Allergy edema Verified 06/14/21 09:41 Penicillins Allergy Rash Verified 03/31/21 19:20 Sulfa (Sulfonamide Allergy Rash Verified 03/31/21 19:20 Antibiotics) sulfamethoxazole [Bactrim] Allergy Unknown Verified 03/31/21 19:20 trimethoprim [Bactrim] Allergy Unknown Verified 03/31/21 19:20 Family History Other Cancer Surgical History Hx of cholecystectomy Social History (Updated 03/31/21 @ 21:[address] Pranav Ward MD) household members: none Smoking Status: Former smoker alcohol intake: current details: Patient states she does not drink however nurse documents and prior note do substance use type: does not use ROS ROS ED Constitutional Constitutional ED: Reports systems reviewed and no addt'l complaints, except as documented; Denies body ache(s), change in weight or chills Eyes Eyes: Denies acute decrease in peripheral vision, change in vision, double vision or loss of vision ENT ENT ED: Reports none; Denies ear pain, lip swelling, loss taste/smell, neck pain, otalgia or sore throat Cardiovascular Cardiovascular: Reports none; Denies abdominal pain, chest pain with activity, leg edema, lightheadedness, palpitations, rapid heart rate or syncope Respiratory/Chest Respiratory/Chest: Reports none; Denies change in mental status, dry cough, dyspnea, hemoptysis, shortness of breath at rest or shortness of breath with exertion Gastrointestinal Gastrointestinal: Reports none; Denies abdominal pain, change in stool character, diarrhea, hematemesis, hematochezia, melena, rectal bleeding or vomiting Genitourinary Genitourinary ED: Reports none; Denies abdominal discomfort, anuria, dysuria, genital pain or polyuria Musculoskeletal Musculoskeletal: Reports none; Denies arthralgias, back pain, difficulty walking, extremity pain, muscle weakness or myalgias Integumentary Reports none; Denies abscess or rash Neurologic Neurologic: Reports none; Denies abnormal gait, confusion, focal weakness, frequent falls, headache(s), loss of vision, numbness, paresthesias, radicular pain, vertigo or weakness Psychiatric Psychiatric: Reports systems reviewed and no addt'l complaints, except as documented and none; Denies behavioral changes, confusion, difficulty concentrating, hallucinations, suicidal ideation, tactile hallucinations or visual hallucinations Endocrine Endocrinology: Reports other Details: Bilateral hand and foot swelling as well as facial swelling ; Denies none, cold intolerance, excessive sweating, fatigue or heat intolerance Hematologic/Lymphatic Hematologic/Lymphatic: Reports none; Denies anemia, easy bleeding or easy bruising Allergic/Immunologic Allergic/Immunologic ED: Denies as per HPI, none, lip swelling, mouth swelling, throat swelling, tongue swelling or hives EXAM Physical Exam Const Vital Signs: 06/14/21 09:42 Temperature 97.0 F L Temperature Source Temporal Pulse Rate 79 Respiratory Rate 16 Blood Pressure 138/78 H Blood Pressure Mean 98 Pulse Ox 98 Oxygen Delivery Method Room Air Positive well nourished and well developed General Appearance ED: well developed and NAD HEENT Reports TM's clear and moist mucous membranes HEENT Narrative: I don't appreciate any angioedema of the tongue or oropharynx. I don't appreciate significant edema of the face. normocephalic and atraumatic; Negative for trauma or tenderness Tympanic Membrane ED: Yes TM's clear Eyes PERRL and EOMs intact bilaterally General Eye ED: Negative for pale conjunctiva or scleral icterus Neck no lymphadenopathy, supple and no JVD General: Negative for tenderness Chest Wall inspection of chest normal and palpation of chest normal Chest: Negative for tenderness Resp normal respiratory effort and clear to auscultation bilaterally Effort and Inspection: Negative for respiratory distress or pain with movement Auscultation: Negative for rhonchi, wheezes or diminished lung sounds Cardio regular rate, regular rhythm, S1 normal heart sound, S2 normal heart sound and no murmurs Peripheral Pulses: pulses 2+ throughout GI normal to inspection, nondistended, normoactive bowel sounds, soft to palpation, non-tender, non-distended and no masses Back/Spine no CVA tenderness and no thoracic nor lumbar tenderness Extremity Extremity Narrative: Patient has maybe some subtle edema of both hands and feet. Right foot greater than left. No rash or hives noted. No cellulitic changes noted. General Extremety ED: Negative for edema General Extremity: Negative for edema Neuro oriented x3, CN's II-XII intact bilaterally, no sensory deficits noted and gait normal Sensorium / Orientation: awake, alert, oriented to person, oriented to place and oriented to time Motor Exam: strength 5/5 throughout and strength abnormal Psych mental status grossly normal Skin no rashes or lesions noted and no wounds MDM MDM MDM Narrative Medical decision making narrative: IV line established on arrival. Patient was given Benadryl 25 mg IV as well as Solu-Medrol 60 mg IV. Patient received Rocephin 1 g IV. At this point I will treat patient with prednisone for 3 more days. She is advised to discontinue the Macrobid. Patient will be started on ciprofloxacin. Patient advised to follow-up with her primary care physician in 3 to 5 days. She is to return if increased difficulty breathing, lip or tongue swelling, or condition should worsen anyway. Patient tells me she has had Cipro before and is tolerated well. Lab Data Attestation: I reviewed the patient's lab results. Labs: Laboratory Results - last 24 hr 06/14/21 06/14/21 10:13 10:13 WBC 8.3 RBC 4.68 Hgb 11.8 L Hct 37.6 MCV 80.3 L MCH 25.2 L MCHC 31.4 L RDW Std Deviation 43.9 RDW Coeff of [place] 15.2 H Plt Count 262 MPV 10.0 Immature Gran % (Auto) 1.700 H Neut % (Auto) 63.0 Lymph % (Auto) 27.1 [place] % (Auto) 5.3 Eos % (Auto) 2.2 Baso % (Auto) 0.7 Absolute Neuts (auto) 5.2 Absolute Lymphs (auto) 2.24 Nucleated RBC % 0 Sodium 139 Potassium 4.2 Chloride 102 Carbon Dioxide 31.0 Anion Gap 6 BUN 11 Creatinine 0.64 Estim Creat Clear Calc 75.83 Est GFR (MDRD) Af Amer 124 Est GFR (MDRD) Non-Af 102 BUN/Creatinine Ratio 17.1 Glucose 160 H Calcium 8.8 Discharge Plan Triage Chief Complaint: Allergic Reaction ED Provider: Darell Mendoza Dx/Rx/DC Orders Clinical Impression: Allergic drug reaction Instructions: ED ADVERSE DRUG REACTION Allergic Prescriptions: New ciprofloxacin HCl [ciprofloxacin HCl] 500 MG tablet 500 mg PO BID Qty: 14 RF: 0 prednisone 20 mg tablet 20 mg PO BID Qty: 6 RF: 0 No Action albuterol sulfate 2.5 mg /3 mL (0.083 %) solution for nebulization 2.5 mg INHALATION Q4H PRN PRN (Reason: Sob &/Or Wheezing) RF: 0 lisinopril 2.5 mg tablet 2.5 mg PO DAILY RF: 0 fluoxetine 40 MG capsule 40 mg PO DAILY RF: 0 atorvastatin 20 MG tablet 20 mg PO QHS RF: 0 levothyroxine 200 MCG tablet 350 mcg PO DAILY RF: 0 acetaminophen 325 MG tablet 650 mg PO Q6H PRN PRN (Reason: Pain Score 1-10/Temp > 100.7 F) RF: 0 insulin lispro 100 UNIT/ML insulin pen See Protocol unit subcut TIDAC Qty: 1 RF: 0 insulin degludec 200 UNIT/ML insulin pen 100 unit SQ DAILY RF: 0 docusate sodium 100 MG capsule 100 mg PO DAILY PRN (Reason: Constipation) RF: 0 metformin 500 mg tablet extended release 24 hr 500 mg PO BID RF: 0 ondansetron [ondansetron] 4 MG tablet 4 mg PO Q8H PRN PRN (Reason: Nausea) Qty: 10 RF: 0 Primary Care Provider: Tj Douglass Referrals: Tj Douglass MD [Primary Care Provider] - Disposition Disposition: Home, Self Care
[2021-06-14] MEDS: DiphenhydrAMINE 50 MG/ML Syringe 25 MG IV (10:15)
[2021-06-14] MEDS: MethylPREDNISolone 125 MG/2 ML Vial 60 MG IV (10:15)
[2021-06-14] MEDS: Ceftriaxone 1 GM/50 ML BAG IV (10:15)
[2021-06-14 10:19] LABS: Absolute Lymphocyte Count 2.24 X10^3/uL (0.83-4.51); Absolute Neutrophil Count 5.2 X10^3/uL (2.0-7.7); Basophil# 0.06 X10^3/uL; Basophil% 0.7 % (0-1); Eosinophil# 0.18 X10^3/uL; Eosinophils% 2.2 % (0-5); Hematocrit 37.6 % (37-47); Hemoglobin 11.8 g/dL (12.0-15.0); Lymphocyte # 2.24 X10^3/ul (0.83-4.51); Lymphocyte % 27.1 % (19-41); Mean Corp Hgb Conc 31.4 g/dL (32-36); Mean Corpuscular Hgb 25.2 pg (27.0-32.0); Mean Corpuscular Volume 80.3 fL (81-99); Monocyte# 0.44 X10^3/uL; Monocyte% 5.3 % (0-10); NRBC Flagged by Analyzer 0 % (0-5); Neutrophil # 5.22 X10^3/uL (2.7-7.7); Platelet Count 262 K/mm3 (150-450); RBC Distribution Width CV 15.2 % (11.6-14.6); RBC Distribution Width SD 43.9 fl (35.1-43.9); Red Blood Count 4.68 M/mm3 (4.2-5.4); White Blood Count 8.3 K/mm3 (4.4-11.0)
[2021-06-14 10:34] LABS: Anion Gap 6 (5-15); BUN 11 mg/dL (7-18); BUN/Creat Ratio 17.1 RATIO (10-20); Calcium,Total 8.8 mg/dL (8.5-10.1); Chloride 102 mmol/L (98-107); Creatinine, Serum 0.64 mg/dL (0.55-1.02); EST Glomerular Filtration Rate 102 mL/min (>60); Est Glom Filt Rate - Afr Amer 124 mL/min (>60); Estimated Creatinine Clearance 75.83 ml/min; Glucose 160 mg/dL (74-106); Potassium 4.2 mmol/L (3.5-5.1); Sodium Level 139 mmol/L (136-145)
[2021-06-14 11:46] VITALS: BP 111/87; PULSE 72; RESP 17; O2SAT 97
== END 2021-06-14 11:50 | disposition home or self-care (01) ==
LOC: ED 10:40
PROVIDERS: Emergency Provider Emergency Medicine; PCP Family Medicine
DX: R60.0 Localized edema (principal); R47.9 Unspecified speech disturbances; T37.8X5A Adverse effect of other specified systemic anti-infectives and antiparasitics, initial encounter; Y92.9 Unspecified place or not applicable; E11.9 Type 2 diabetes mellitus without complications; E03.9 Hypothyroidism, unspecified; M19.90 Unspecified osteoarthritis, unspecified site; Z79.4 Long term (current) use of insulin; Z79.84 Long term (current) use of oral hypoglycemic drugs; Z79.899 Other long term (current) drug therapy; Z87.891 Personal history of nicotine dependence
CPT/HCPCS: 80048; 85025; 96365; 96375; 99285; J7050; A4216

== ENCOUNTER 2021-07-21 05:25 | Emergency (ER) | payer OTHER, SELFPAY ==
[2021-07-21 05:26] VITALS: BP 149/73; PULSE 109; RESP 18; TEMP 36.6; O2SAT 98; BMI 48.1
[2021-07-21 05:29] VITALS: BP 149/73; PULSE 107; RESP 18; TEMP 36.6; O2SAT 96
--- NOTE | 2021-07-21 05:43 | EDS_ITS ---
HPI History of Present Illness Chief Complaint: Abd Pain Informant: patient Onset/Context/Timing Onset: Days Context: Gradual Onset Current Severity: Mild Maximum Severity: Moderate Narrative Narrative: Patient presents with 4-day history of nausea and vomiting. She reports developing nausea 4 days ago and 3 days ago had vomiting. The following day she had yellow-colored diarrhea. Yesterday she had headache around the left temporal area and felt nauseated but has not vomited again. She denies fever or chills. She states her employer did a Covid test on her 2 days ago that was negative. She was recently treated for a UTI and is not sure if that may be back. She denies dysuria. [facility] Medical History Anemia Arthritis Back pain Bloody stool Diabetes History of frequent headaches Hyperlipidemia Hypertension Hypothyroid Morbid obesity Thyroid disease Home Medications albuterol sulfate 2.5 mg INHALATION Q4H PRN PRN 04/11/18 [History Last Taken Unknown] lisinopril 2.5 mg tablet 2.5 mg PO DAILY 04/11/18 [History Last Taken 10/06/19] fluoxetine 40 mg PO DAILY 02/12/19 [History Last Taken 10/06/19] atorvastatin 20 mg PO QHS 10/06/19 [History Last Taken 10/05/19] levothyroxine 350 mcg PO DAILY 10/06/19 [History Last Taken 10/06/19] acetaminophen 650 mg PO Q6H PRN PRN tab 10/09/19 [Rx Last Taken Unknown] insulin degludec 100 unit SQ DAILY 06/13/20 [History Last Taken Unknown] docusate sodium 100 mg PO DAILY PRN 09/07/20 [History Last Taken Unknown] metformin 500 mg PO BID 03/29/21 [History Last Taken Unknown] ondansetron 4 mg PO Q8H PRN PRN #10 tab 03/31/21 [Rx Last Taken Unknown] ciprofloxacin HCl 500 mg PO BID #14 tab 07/21/21 [Rx Last Taken Unknown] insulin lispro 46 unit SC TIDAC 07/21/21 [History Last Taken Unknown] ondansetron 4 mg PO Q8H PRN #10 tab 07/21/21 [Rx Last Taken Unknown] Allergy/AdvReac Type Severity Reaction Status Date / Time codeine Allergy Angioedema Verified 07/21/21 05:31 nitrofurantoin Allergy edema Verified 07/21/21 05:31 Penicillins Allergy Rash Verified 07/21/21 05:31 Sulfa (Sulfonamide Allergy Rash Verified 07/21/21 05:31 Antibiotics) sulfamethoxazole [Bactrim] Allergy Unknown Verified 07/21/21 05:31 trimethoprim [Bactrim] Allergy Unknown Verified 07/21/21 05:31 Family History Other Cancer Surgical History Hx of cholecystectomy Social History household members: none Smoking Status: Former smoker alcohol intake: current details: Patient states she does not drink however nurse documents and prior note do substance use type: does not use ROS ROS ED Constitutional Constitutional ED: Denies chills or fever(s) Eyes Eyes: Denies change in vision ENT ENT ED: Denies sore throat Cardiovascular Cardiovascular: Denies chest pain Respiratory/Chest Respiratory/Chest: Denies cough or dyspnea Gastrointestinal Gastrointestinal: Reports abdominal pain, diarrhea, nausea and vomiting Genitourinary Genitourinary ED: Denies dysuria or urinary frequency Musculoskeletal Musculoskeletal: Reports myalgias; Denies back pain Integumentary Denies rash Neurologic Neurologic: Reports headache(s); Denies weakness Psychiatric Psychiatric: Denies anxiety or depression Allergic/Immunologic Allergic/Immunologic ED: Denies urticaria EXAM Physical Exam Const Vital Signs: 07/21/21 05:26 07/21/21 05:29 Temperature 97.8 F 97.8 F Temperature Source Temporal Temporal Pulse Rate 109 H 107 H Respiratory Rate 18 18 Blood Pressure 149/73 H 149/73 H Blood Pressure Mean 98 98 Pulse Ox 98 96 Oxygen Delivery Method Room Air Room Air Positive well nourished and well developed General Appearance ED: well developed HEENT Reports moist mucous membranes Eyes PERRL and EOMs intact bilaterally Neck no lymphadenopathy and supple Chest Wall inspection of chest normal and palpation of chest normal Resp normal respiratory effort and clear to auscultation bilaterally Cardio regular rate and regular rhythm GI non-tender Auscultation: hypoactive bowel sounds Palpation: soft Extremity normal to inspection Neuro oriented x3 Sensorium / Orientation: alert Psych mental status grossly normal Skin no rashes or lesions noted MDM MDM MDM Narrative Medical decision making narrative: Patient was given Toradol and Zofran. Lab work, urinalysis, Covid swab obtained. Lab Data Attestation: I reviewed the patient's lab results. Labs: Laboratory Results - last 24 hr 07/21/21 07/21/21 07/21/21 05:36 05:36 06:30 WBC 11.6 H RBC 5.10 Hgb 12.6 Hct 39.2 MCV 76.9 L MCH 24.7 L MCHC 32.1 RDW Std Deviation 40.2 RDW Coeff of [place] 14.6 Plt Count 239 MPV 10.2 Immature Gran % (Auto) 0.900 Neut % (Auto) 76.2 H Lymph % (Auto) 16.1 L [place] % (Auto) 4.8 Eos % (Auto) 1.6 Baso % (Auto) 0.4 Absolute Neuts (auto) 8.8 H Absolute Lymphs (auto) 1.86 Nucleated RBC % 0 Sodium 131 L Potassium 4.2 Chloride 99 Carbon Dioxide 27.0 Anion Gap 5 BUN 10 Creatinine 0.73 Estim Creat Clear Calc 66.48 Est GFR (MDRD) Af Amer 107 Est GFR (MDRD) Non-Af 88 BUN/Creatinine Ratio 13.7 Glucose 347 H Calcium 8.9 Total Bilirubin 0.40 Direct Bilirubin 0.12 AST 26 ALT 32 Alkaline Phosphatase 172 H Total Protein 8.2 Albumin 2.9 L Globulin 5.3 H Lipase 73 Urine Color Yellow Urine Clarity Sl. Cloudy Urine pH 5.0 Ur Specific [place] 1.020 Urine Protein 30 H Urine Glucose (UA) 1000 H Urine Ketones Negative Urine Occult Blood 150 H Urine Nitrite Negative Urine Bilirubin Negative Urine Urobilinogen Normal Ur Leukocyte Esterase 500 H Urine RBC 5-10 SEEN Urine WBC 25-50 SEEN Ur Squamous Epith Cells 0-5 SEEN Urine Bacteria RARE Urine Mucus 0 SEEN Rapid Covid: Negative Treatment and Re-Evaluation Comments:: On repeat evaluation patient resting comfortably. She does appear to still have a UTI with 25-50 white cells although rare bacteria is noted. Last urine culture from March was pansensitive E. coli. Based on the patient's allergies she will be treated with a course of Cipro. Another urine culture has been sent today. Patient will be given Zofran to help with nausea at home as well. Discharge Plan Triage Chief Complaint: Abd Pain ED Provider: Natalya Chun Dx/Rx/DC Orders Clinical Impression: UTI (urinary tract infection) Instructions: ED CYSTITIS Female Adult Prescriptions: New ciprofloxacin HCl 500 mg tablet 500 mg PO BID Qty: 14 RF: 0 ondansetron 4 mg tablet,disintegrating 4 mg PO Q8H PRN (Reason: nausea and vomiting) Qty: 10 RF: 0 No Action albuterol sulfate 2.5 mg /3 mL (0.083 %) solution for nebulization 2.5 mg INHALATION Q4H PRN PRN (Reason: Sob &/Or Wheezing) RF: 0 lisinopril 2.5 mg tablet 2.5 mg PO DAILY RF: 0 fluoxetine 40 MG capsule 40 mg PO DAILY RF: 0 atorvastatin 20 MG tablet 20 mg PO QHS RF: 0 levothyroxine 200 MCG tablet 350 mcg PO DAILY RF: 0 acetaminophen 325 MG tablet 650 mg PO Q6H PRN PRN (Reason: Pain Score 1-10/Temp > 100.7 F) RF: 0 insulin degludec 200 UNIT/ML insulin pen 100 unit SQ DAILY RF: 0 docusate sodium 100 MG capsule 100 mg PO DAILY PRN (Reason: Constipation) RF: 0 metformin 500 mg tablet extended release 24 hr 500 mg PO BID RF: 0 ondansetron [ondansetron] 4 MG tablet 4 mg PO Q8H PRN PRN (Reason: Nausea) Qty: 10 RF: 0 insulin lispro 100 UNIT/ML insulin pen 46 unit SC TIDAC RF: 0 Primary Care Provider: Tj Douglass Referrals: Tj Douglass MD [Primary Care Provider] - 1 Week if not improving Disposition Disposition: Home, Self Care
[2021-07-21 05:50] LABS: Absolute Lymphocyte Count 1.86 X10^3/uL (0.83-4.51); Absolute Neutrophil Count 8.8 X10^3/uL (2.0-7.7); Basophil# 0.05 X10^3/uL; Basophil% 0.4 % (0-1); Eosinophil# 0.19 X10^3/uL; Eosinophils% 1.6 % (0-5); Hematocrit 39.2 % (37-47); Hemoglobin 12.6 g/dL (12.0-15.0); Lymphocyte # 1.86 X10^3/ul (0.83-4.51); Lymphocyte % 16.1 % (19-41); Mean Corp Hgb Conc 32.1 g/dL (32-36); Mean Corpuscular Hgb 24.7 pg (27.0-32.0); Mean Corpuscular Volume 76.9 fL (81-99); Mean Platelet Vol. 10.2 fl (6.2-12.0); Monocyte# 0.55 X10^3/uL; Monocyte% 4.8 % (0-10); NRBC Flagged by Analyzer 0 % (0-5); Neutrophil # 8.81 X10^3/uL (2.7-7.7); Neutrophil % 76.2 % (47-70); Platelet Count 239 K/mm3 (150-450); RBC Distribution Width CV 14.6 % (11.6-14.6); RBC Distribution Width SD 40.2 fl (35.1-43.9); White Blood Count 11.6 K/mm3 (4.4-11.0)
[2021-07-21] MEDS: Ketorolac 30 MG/ML Syringe IV (05:51)
[2021-07-21] MEDS: Ondansetron 4 MG/2 ML Vial IV (05:51)
[2021-07-21 06:14] LABS: AST(SGOT) 26 U/L (15-37); Alanine Aminotransfer ALT/SGPT 32 U/L (13-56); Albumin, Serum 2.9 g/dL (3.2-5.0); Alkaline Phosphatase 172 U/L (45-117); Anion Gap 5 (5-15); BUN 10 mg/dL (7-18); BUN/Creat Ratio 13.7 RATIO (10-20); Bilirubin, Direct 0.12 mg/dL (0.00-0.30); Calcium,Total 8.9 mg/dL (8.5-10.1); Chloride 99 mmol/L (98-107); Creatinine, Serum 0.73 mg/dL (0.55-1.02); EST Glomerular Filtration Rate 88 mL/min (>60); Est Glom Filt Rate - Afr Amer 107 mL/min (>60); Estimated Creatinine Clearance 66.48 ml/min; Globulin 5.3 g/dL (2.2-4.2); Glucose 347 mg/dL (74-106); Lipase 73 U/L (73-393); Potassium 4.2 mmol/L (3.5-5.1); Protein, Total 8.2 g/dL (6.4-8.2); Sodium Level 131 mmol/L (136-145)
[2021-07-21 06:48] LABS: Mucous, Urine 0 SEEN /hpf (<or=2+)
[2021-07-21 06:49] LABS: Color, Urine Yellow (Yellow); Glucose, Dipstick 1000 mg/dl (Normal); Ketone-Dipstick Negative (Negative); Leukocyte Esterase-Dipstick 500 /ul (Negative); Nitrite-Dipstick Negative (Negative); Occult Blood-Urine 150 /ul (Negative); Protein-Dipstick 30 mg/dl (Negative); Urine Bilirubin Dipstick Negative (Negative); Urine Clarity Sl. Cloudy (Clear); Urine Urobilinogen Normal (Normal)
[2021-07-21 07:19] LABS: Squamous Epithelial Cells - UA 0-5 SEEN /hpf (5-10); White Blood Cells 25-50 SEEN /hpf (0-5)
[2021-07-21 07:20] LABS: Bacteria RARE /hpf (None Seen); Red Blood Cells-Urine 5-10 SEEN /hpf (0-5)
[2021-07-21] MEDS: Ciprofloxacin 500 MG Tablet PO (07:44)
[2021-07-21 07:47] VITALS: BP 145/76; PULSE 72; RESP 18; O2SAT 96
== END 2021-07-21 07:59 | disposition home or self-care (01) ==
PROVIDERS: Emergency Provider Emergency Medicine; PCP Family Medicine
DX: N39.0 Urinary tract infection, site not specified (principal); I10 Essential (primary) hypertension; E11.9 Type 2 diabetes mellitus without complications; E78.5 Hyperlipidemia, unspecified; E03.9 Hypothyroidism, unspecified; E07.9 Disorder of thyroid, unspecified; E66.01 Morbid (severe) obesity due to excess calories; M19.90 Unspecified osteoarthritis, unspecified site; Z68.42 Body mass index [BMI] 45.0-49.9, adult; Z79.4 Long term (current) use of insulin; Z79.84 Long term (current) use of oral hypoglycemic drugs; Z79.899 Other long term (current) drug therapy; Z87.891 Personal history of nicotine dependence; Z87.440 Personal history of urinary (tract) infections
CPT/HCPCS: 80048; 80076; 81001; 83690; 85025; 87086; 87088; 87426; 96374; 96375; 99285; J7030; A4216; J2405

== ENCOUNTER 2021-09-09 18:23 | Emergency (ER) | payer OTHER, SELFPAY ==
[2021-09-09 18:24] VITALS: BP 135/94; PULSE 91; RESP 16; TEMP 35.8; O2SAT 100; BMI 45.4
--- NOTE | 2021-09-09 18:57 | EX.ED.DYSGE1 ---
HPI <ALISA Kinsey - Last Filed: 09/09/21 19:48> History of Present Illness Chief Complaint: Hyperglycemia Narrative Narrative: 55-year-old female with past medical history of type 2 diabetes presents with hyperglycemia. She states she ran out of her Humalog 1 week ago. She normally takes 47 units before each meal. She called her doctor but the prescription has not been called into the pharmacy. She has been taking her Metformin 1000 mg twice daily and Tresiba 100 units once daily. Today she took 140 units of the Tresiba because she knew her sugars were high. Over the last few days she has felt fatigued with a dry mouth, headache, and nausea. She reports urinary frequency. Recently she has had recurrent UTIs and is taking Cipro right now. PFSH <ALISA Kinsey - Last Filed: 09/09/21 19:48> [facility] Medical History Anemia Arthritis Back pain Bloody stool Diabetes History of frequent headaches Hyperlipidemia Hypertension Hypothyroid Morbid obesity Thyroid disease Home Medications albuterol sulfate 2.5 mg INHALATION Q4H PRN PRN 04/11/18 [History Last Taken Unknown] lisinopril 2.5 mg tablet 2.5 mg PO DAILY 04/11/18 [History Last Taken 10/06/19] fluoxetine 40 mg PO DAILY 02/12/19 [History Last Taken 10/06/19] atorvastatin 20 mg PO QHS 10/06/19 [History Last Taken 10/05/19] levothyroxine 350 mcg PO DAILY 10/06/19 [History Last Taken 10/06/19] acetaminophen 650 mg PO Q6H PRN PRN tab 10/09/19 [Rx Last Taken Unknown] insulin degludec 100 unit SQ DAILY 06/13/20 [History Last Taken Unknown] docusate sodium 100 mg PO DAILY PRN 09/07/20 [History Last Taken Unknown] metformin 1,000 mg PO DAILY 03/29/21 [History Last Taken Unknown] ciprofloxacin HCl 500 mg PO BID #14 tab 07/21/21 [Rx Last Taken Unknown] insulin lispro 46 unit SC TIDAC 07/21/21 [History Last Taken Unknown] ondansetron 4 mg PO Q8H PRN #10 tab 12/31/21 [Rx Last Taken Unknown] insulin lispro [Humalog KwikPen Insulin] 47 unit SUBCUT BID 7 Days #3.29 ml 09/09/21 [Rx Last Taken Unknown] Allergy/AdvReac Type Severity Reaction Status Date / Time codeine Allergy Angioedema Verified 09/09/21 18:23 nitrofurantoin Allergy edema Verified 09/09/21 18:23 Penicillins Allergy Rash Verified 09/09/21 18:23 Sulfa (Sulfonamide Allergy Rash Verified 09/09/21 18:23 Antibiotics) sulfamethoxazole [Bactrim] Allergy Unknown Verified 09/09/21 18:23 trimethoprim [Bactrim] Allergy Unknown Verified 09/09/21 18:23 Family History Other Cancer Surgical History Hx of cholecystectomy Social History household members: none Smoking Status: Former smoker alcohol intake: current details: Patient states she does not drink however nurse documents and prior note do substance use type: does not use ROS <ALISA Kinsey - Last Filed: 09/09/21 19:48> ROS ED ROS Narrative Constitutional: Positive for malaise. Negative for fever, chills. Eyes: Negative for visual change. ENT: Negative for sore throat, ear pain, rhinorrhea. CVS: Negative for palpitations, chest pain, syncope. Respiratory: Negative for shortness of breath, cough, orthopnea. GI: Positive for nausea. Negative for abdominal pain, vomiting, diarrhea, constipation, melena, hematochezia. : Negative for dysuria, hematuria or frequency. Neuro: Positive for headache, negative for motor/sensory dysfunction. Skin: Negative for rash, abscess, or wound. Musc: Negative for joint pain, swelling, trauma. Heme: Negative for easy bruising, bleeding, lymphadenopathy. EXAM <ALISA Kinsey - Last Filed: 09/09/21 19:48> Physical Exam Narrative Exam Narrative: CONST: Patient sitting in no acute distress. EYES: Normal inspection. ENT: Normal inspection, dry mucous membranes. NECK: Normal inspection. RESP: No respiratory distress, CTAB. CVS: Regular rate and rhythm, no murmur, no gallop. ABD: Soft and nontender, no guarding or rebound, nondistended. SKIN: Color normal, no rash, warm, dry, intact. EXTREMITIES: Normal appearance, no pedal edema. NEURO: Oriented x4. PSYCH: Normal affect. Const Vital Signs: 09/09/21 18:24 09/09/21 18:51 09/09/21 20:37 Temperature 96.5 F L Temperature Source Temporal Pulse Rate 91 75 Respiratory Rate 16 18 Respiratory Effort Normal Respiratory Pattern Normal Blood Pressure 135/94 H 123/72 H Blood Pressure Mean 107 Pulse Ox 100 98 Oxygen Delivery Method Room Air <Dr. Natalya Chun MD - Last Filed: 09/09/21 21:56> Physical Exam Const Vital Signs: 09/09/21 18:24 09/09/21 18:51 09/09/21 20:37 Temperature 96.5 F L Temperature Source Temporal Pulse Rate 91 75 Respiratory Rate 16 18 Respiratory Effort Normal Respiratory Pattern Normal Blood Pressure 135/94 H 123/72 H Blood Pressure Mean 107 Pulse Ox 100 98 Oxygen Delivery Method Room Air MDM <ALISA Kinsey - Last Filed: 09/09/21 19:48> [facility] Narrative Medical decision making narrative: Patient with type 2 diabetes presents with elevated blood sugars after being out of her Humalog for 1 week. She is still taking Metformin and Tresiba. She appears well and nontoxic. Vital signs within normal limits. On exam she has dry mucous membranes she has dry mucous membranes with an otherwise benign exam. CBC is WNL. Glucose is 582, corrected sodium 134, normal renal function, anion gap of 7. Ketones are negative. There is no evidence of DKA. UA is consistent with UTI and she is presently taking Cipro for this. She has a normal white count and normal vital signs and I have no concern for sepsis. We discussed that if she does not get her blood sugars under control will be hard to adequately treat her UTIs. In the ED she was treated with 2 L of IV fluids and 10 units of subcutaneous insulin. I refilled her Humalog x1 week? she normally takes 47 units before each meal. She was counseled to call her primary care doctor on Saturday for refills and follow-up. Return for new or worsening symptoms. She was discharged in stable condition. Diagnosis 1. Diabetic hyperglycemia 2. UTI Lab Data Labs: Laboratory Results - last 24 hr 09/09/21 09/09/21 09/09/21 18:45 18:47 18:55 WBC 8.3 RBC 5.11 Hgb 12.3 Hct 39.1 MCV 76.5 L MCH 24.1 L MCHC 31.5 L RDW Std Deviation 42.4 RDW Coeff of [place] 15.7 H Plt Count 266 MPV 10.1 Immature Gran % (Auto) 1.700 H Neut % (Auto) 52.1 Lymph % (Auto) 37.9 [place] % (Auto) 4.8 Eos % (Auto) 2.5 Baso % (Auto) 1.0 Absolute Neuts (auto) 4.3 Absolute Lymphs (auto) 3.15 Nucleated RBC % 0 Sodium Potassium Chloride Carbon Dioxide Anion Gap BUN Creatinine Estim Creat Clear Calc Est GFR (MDRD) Af Amer Est GFR (MDRD) Non-Af BUN/Creatinine Ratio Glucose Calcium Urine Color Yellow Urine Clarity Clear Urine pH 6.0 Ur Specific [place] 1.010 Urine Protein Negative Urine Glucose (UA) 1000 H Urine Ketones Negative Urine Occult Blood 50 H Urine Nitrite Negative Urine Bilirubin Negative Urine Urobilinogen Normal Ur Leukocyte Esterase 100 H Urine RBC 5-10 SEEN Urine WBC 10-25 SEEN Ur Squamous Epith Cells 0-5 SEEN Urine Bacteria 1+ Urine Mucus 0 SEEN Acetone Level POC Glucose > 500 H* 09/09/21 09/09/21 18:55 18:55 WBC RBC Hgb Hct MCV MCH MCHC RDW Std Deviation RDW Coeff of [place] Plt Count MPV Immature Gran % (Auto) Neut % (Auto) Lymph % (Auto) [place] % (Auto) Eos % (Auto) Baso % (Auto) Absolute Neuts (auto) Absolute Lymphs (auto) Nucleated RBC % Sodium 126 L Potassium 4.9 Chloride 90 L Carbon Dioxide 29.0 Anion Gap 7 BUN 11 Creatinine 1.03 H Estim Creat Clear Calc 47.12 Est GFR (MDRD) Af Amer 72 Est GFR (MDRD) Non-Af 59 L BUN/Creatinine Ratio 10.7 Glucose 582 H* Calcium 9.1 Urine Color Urine Clarity Urine pH Ur Specific [place] Urine Protein Urine Glucose (UA) Urine Ketones Urine Occult Blood Urine Nitrite Urine Bilirubin Urine Urobilinogen Ur Leukocyte Esterase Urine RBC Urine WBC Ur Squamous Epith Cells Urine Bacteria Urine Mucus Acetone Level NEGATIVE POC Glucose <Dr. Natalya Chun, MD - Last Filed: 09/09/21 21:56> [facility] Lab Data Labs: Laboratory Results - last 24 hr 09/09/21 09/09/21 09/09/21 18:45 18:47 18:55 WBC 8.3 RBC 5.11 Hgb 12.3 Hct 39.1 MCV 76.5 L MCH 24.1 L MCHC 31.5 L RDW Std Deviation 42.4 RDW Coeff of [place] 15.7 H Plt Count 266 MPV 10.1 Immature Gran % (Auto) 1.700 H Neut % (Auto) 52.1 Lymph % (Auto) 37.9 [place] % (Auto) 4.8 Eos % (Auto) 2.5 Baso % (Auto) 1.0 Absolute Neuts (auto) 4.3 Absolute Lymphs (auto) 3.15 Nucleated RBC % 0 Sodium Potassium Chloride Carbon Dioxide Anion Gap BUN Creatinine Estim Creat Clear Calc Est GFR (MDRD) Af Amer Est GFR (MDRD) Non-Af BUN/Creatinine Ratio Glucose Calcium Urine Color Yellow Urine Clarity Clear Urine pH 6.0 Ur Specific [place] 1.010 Urine Protein Negative Urine Glucose (UA) 1000 H Urine Ketones Negative Urine Occult Blood 50 H Urine Nitrite Negative Urine Bilirubin Negative Urine Urobilinogen Normal Ur Leukocyte Esterase 100 H Urine RBC 5-10 SEEN Urine WBC 10-25 SEEN Ur Squamous Epith Cells 0-5 SEEN Urine Bacteria 1+ Urine Mucus 0 SEEN Acetone Level POC Glucose > 500 H* 09/09/21 09/09/21 18:55 18:55 WBC RBC Hgb Hct MCV MCH MCHC RDW Std Deviation RDW Coeff of [place] Plt Count MPV Immature Gran % (Auto) Neut % (Auto) Lymph % (Auto) [place] % (Auto) Eos % (Auto) Baso % (Auto) Absolute Neuts (auto) Absolute Lymphs (auto) Nucleated RBC % Sodium 126 L Potassium 4.9 Chloride 90 L Carbon Dioxide 29.0 Anion Gap 7 BUN 11 Creatinine 1.03 H Estim Creat Clear Calc 47.12 Est GFR (MDRD) Af Amer 72 Est GFR (MDRD) Non-Af 59 L BUN/Creatinine Ratio 10.7 Glucose 582 H* Calcium 9.1 Urine Color Urine Clarity Urine pH Ur Specific [place] Urine Protein Urine Glucose (UA) Urine Ketones Urine Occult Blood Urine Nitrite Urine Bilirubin Urine Urobilinogen Ur Leukocyte Esterase Urine RBC Urine WBC Ur Squamous Epith Cells Urine Bacteria Urine Mucus Acetone Level NEGATIVE POC Glucose Treatment and Re-Evaluation Comments:: Patient seen and evaluated with physician's family law legal assistant. Patient independently interviewed and examined. Patient present secondary to hyperglycemia. She has been out of her insulin for the past week. She has been treated recently with frequent UTIs and is currently on Cipro. Patient sitting upright in bed no acute distress. She is nontoxic-appearing. Head neck examination unremarkable. Heart is regular rate and rhythm. Lung sounds are clear. Abdomen is soft and nontender. Neuro exam reveals no focal deficits. Lab work reviewed. Blood sugar is 582. She is treated with IV fluids and insulin. Serum acetone is negative and anion gap is normal. Urinalysis does show 10-25 white cells with 1+ bacteria. Due to her allergies she has been treated with Cipro. Urine culture will be sent tonight to ensure that current infection is still sensitive to Cipro. Prescription for insulin given. Discharge Plan Triage Chief Complaint: Hyperglycemia ED Provider: Celia Paige Dx/Rx/DC Orders Clinical Impression: Diabetes mellitus with hyperglycemia Instructions: ED Diabetic Hyperglycemia Prescriptions: New Humalog KwikPen Insulin 200 unit/mL (3 mL) insulin pen 47 unit subcut BID 7 Days Qty: 3.29 RF: 0 No Action albuterol sulfate 2.5 mg /3 mL (0.083 %) solution for nebulization 2.5 mg INHALATION Q4H PRN PRN (Reason: Sob &/Or Wheezing) RF: 0 lisinopril 2.5 mg tablet 2.5 mg PO DAILY RF: 0 fluoxetine 40 MG capsule 40 mg PO DAILY RF: 0 atorvastatin 20 MG tablet 20 mg PO QHS RF: 0 levothyroxine 200 MCG tablet 350 mcg PO DAILY RF: 0 acetaminophen 325 MG tablet 650 mg PO Q6H PRN PRN (Reason: Pain Score 1-10/Temp > 100.7 F) RF: 0 insulin degludec 200 UNIT/ML insulin pen 100 unit SQ DAILY RF: 0 docusate sodium 100 MG capsule 100 mg PO DAILY PRN (Reason: Constipation) RF: 0 metformin 500 mg tablet extended release 24 hr 1,000 mg PO DAILY RF: 0 insulin lispro 100 UNIT/ML insulin pen 46 unit SC TIDAC RF: 0 ciprofloxacin HCl 500 mg tablet 500 mg PO BID Qty: 14 RF: 0 ondansetron 4 mg tablet,disintegrating 4 mg PO Q8H PRN (Reason: nausea and vomiting) Qty: 10 RF: 0 Primary Care Provider: Tj Douglass Referrals: Tj Douglass MD [Primary Care Provider] - Activity Restrictions/Additional Instructions: Today your blood sugars were high in the 580s but there is no signs of DKA or diabetic ketoacidosis. You were treated with IV fluids and 10 units of insulin. I prescribe a 7-day supply of your Humalog which you should cotton picker tomorrow morning. Continue to take your Metformin and Tresiba as prescribed. Please call your primary care doctor on Saturday so they can provide further refills of your insulin. Come back to the ER for new or worsening symptoms. Disposition Disposition: Home, Self Care Discharge Date/Time: 09/09/21 20:38
[2021-09-09 19:01] LABS: Bedside Glucose > 500 mg/dL (70-110)
[2021-09-09 19:04] LABS: Absolute Lymphocyte Count 3.15 X10^3/uL (0.83-4.51); Absolute Neutrophil Count 4.3 X10^3/uL (2.0-7.7); Basophil# 0.08 X10^3/uL; Eosinophil# 0.21 X10^3/uL; Eosinophils% 2.5 % (0-5); Hematocrit 39.1 % (37-47); Hemoglobin 12.3 g/dL (12.0-15.0); Lymphocyte # 3.15 X10^3/ul (0.83-4.51); Lymphocyte % 37.9 % (19-41); Mean Corp Hgb Conc 31.5 g/dL (32-36); Mean Corpuscular Hgb 24.1 pg (27.0-32.0); Mean Corpuscular Volume 76.5 fL (81-99); Mean Platelet Vol. 10.1 fl (6.2-12.0); Monocyte% 4.8 % (0-10); NRBC Flagged by Analyzer 0 % (0-5); Neutrophil # 4.34 X10^3/uL (2.7-7.7); Neutrophil % 52.1 % (47-70); Platelet Count 266 K/mm3 (150-450); RBC Distribution Width CV 15.7 % (11.6-14.6); RBC Distribution Width SD 42.4 fl (35.1-43.9); Red Blood Count 5.11 M/mm3 (4.2-5.4); White Blood Count 8.3 K/mm3 (4.4-11.0)
[2021-09-09 19:11] LABS: Mucous, Urine 0 SEEN /hpf (<or=2+)
[2021-09-09 19:15] LABS: Color, Urine Yellow (Yellow); Glucose, Dipstick 1000 mg/dl (Normal); Ketone-Dipstick Negative (Negative); Leukocyte Esterase-Dipstick 100 /ul (Negative); Nitrite-Dipstick Negative (Negative); Occult Blood-Urine 50 /ul (Negative); Protein-Dipstick Negative (Negative); Urine Bilirubin Dipstick Negative (Negative); Urine Clarity Clear (Clear); Urine Urobilinogen Normal (Normal)
[2021-09-09 19:23] LABS: Anion Gap 7 (5-15); BUN 11 mg/dL (7-18); BUN/Creat Ratio 10.7 RATIO (10-20); Calcium,Total 9.1 mg/dL (8.5-10.1); Chloride 90 mmol/L (98-107); Creatinine, Serum 1.03 mg/dL (0.55-1.02); EST Glomerular Filtration Rate 59 mL/min (>60); Est Glom Filt Rate - Afr Amer 72 mL/min (>60); Estimated Creatinine Clearance 47.12 ml/min; Glucose 582 mg/dL (74-106); Potassium 4.9 mmol/L (3.5-5.1); Sodium Level 126 mmol/L (136-145)
[2021-09-09 19:31] LABS: Bacteria 1+ /hpf (None Seen); Red Blood Cells-Urine 5-10 SEEN /hpf (0-5); Squamous Epithelial Cells - UA 0-5 SEEN /hpf (5-10); White Blood Cells 10-25 SEEN /hpf (0-5)
[2021-09-09] MEDS: Insulin Lispro 100 UNIT/ML INSULN.PEN 10 UNIT SC (20:32)
[2021-09-09 20:37] VITALS: BP 123/72; PULSE 75; RESP 18; O2SAT 98
== END 2021-09-09 20:38 | disposition home or self-care (01) ==
PROVIDERS: Emergency Provider Physician Assistant; PCP Family Medicine; Visit Provider Physician Assistant
DX: E11.65 Type 2 diabetes mellitus with hyperglycemia (principal); E66.01 Morbid (severe) obesity due to excess calories; Z68.42 Body mass index [BMI] 45.0-49.9, adult; Z79.4 Long term (current) use of insulin; N39.0 Urinary tract infection, site not specified; Z79.84 Long term (current) use of oral hypoglycemic drugs; I10 Essential (primary) hypertension; E78.5 Hyperlipidemia, unspecified; E03.9 Hypothyroidism, unspecified; M19.09 Primary osteoarthritis, other specified site; Z79.899 Other long term (current) drug therapy; Z87.440 Personal history of urinary (tract) infections; Z87.891 Personal history of nicotine dependence
CPT/HCPCS: 80048; 81001; 82009; 82962; 85025; 87086; 87088; 96360; 96361; 99283; J7030; A4216

== ENCOUNTER 2021-09-29 18:42 | Emergency (ER) | payer OTHER, SELFPAY ==
[2021-09-29 18:43] VITALS: BP 150/71; PULSE 100; PULSE 103; RESP 18; TEMP 36.8; O2SAT 98; O2SAT 99; BMI 44.9
[2021-09-29] MEDS: 0.9% Normal Saline 1,000 ML 1000 ML IV ×2 (20:37→21:58)
[2021-09-29] MEDS: Ondansetron 4 MG/2 ML Vial IV (20:37)
[2021-09-29 20:43] VITALS: RESP 16
[2021-09-29 20:48] LABS: Bacteria 0 SEEN /hpf (None Seen); Mucous, Urine 0 SEEN /hpf (<or=2+); Red Blood Cells-Urine 0 SEEN /hpf (0-5)
[2021-09-29 20:50] LABS: Color, Urine Yellow (Yellow); Glucose, Dipstick 1000 mg/dl (Normal); Ketone-Dipstick Negative (Negative); Leukocyte Esterase-Dipstick 100 /ul (Negative); Nitrite-Dipstick Negative (Negative); Occult Blood-Urine 25 /ul (Negative); Protein-Dipstick Negative (Negative); Specific Gravity, Urine 1.005 (1.002-1.030); Urine Bilirubin Dipstick Negative (Negative); Urine Clarity Clear (Clear); Urine Urobilinogen Normal (Normal); Urine pH 6.5 (5.0 - 8.0)
[2021-09-29 20:51] LABS: Absolute Lymphocyte Count 2.74 X10^3/uL (0.83-4.51); Absolute Neutrophil Count 8.9 X10^3/uL (2.0-7.7); Basophil# 0.08 X10^3/uL; Basophil% 0.6 % (0-1); Eosinophil# 0.15 X10^3/uL; Eosinophils% 1.2 % (0-5); Hemoglobin 12.5 g/dL (12.0-15.0); Lymphocyte # 2.74 X10^3/ul (0.83-4.51); Lymphocyte % 21.8 % (19-41); Mean Corp Hgb Conc 31.3 g/dL (32-36); Mean Corpuscular Hgb 24.7 pg (27.0-32.0); Mean Corpuscular Volume 78.9 fL (81-99); Mean Platelet Vol. 10.4 fl (6.2-12.0); NRBC Flagged by Analyzer 0 % (0-5); Neutrophil % 70.8 % (47-70); Platelet Count 291 K/mm3 (150-450); RBC Distribution Width CV 16.5 % (11.6-14.6); RBC Distribution Width SD 45.1 fl (35.1-43.9); Red Blood Count 5.07 M/mm3 (4.2-5.4); White Blood Count 12.6 K/mm3 (4.4-11.0)
[2021-09-29 20:59] LABS: Squamous Epithelial Cells - UA 0-5 SEEN /hpf (5-10); White Blood Cells 5-10 SEEN /hpf (0-5)
[2021-09-29 21:05] LABS: ALB/GLOB Ratio 0.6 RATIO (0.9-2.4); AST(SGOT) 38 U/L (15-37); Alanine Aminotransfer ALT/SGPT 47 U/L (13-56); Albumin, Serum 3.1 g/dL (3.2-5.0); Alkaline Phosphatase 207 U/L (45-117); Anion Gap 5 (5-15); BUN 14 mg/dL (7-18); BUN/Creat Ratio 13.3 RATIO (10-20); Calcium,Total 9.1 mg/dL (8.5-10.1); Chloride 91 mmol/L (98-107); Creatinine, Serum 1.05 mg/dL (0.55-1.02); EST Glomerular Filtration Rate 58 mL/min (>60); Est Glom Filt Rate - Afr Amer 70 mL/min (>60); Estimated Creatinine Clearance 46.22 ml/min; Globulin 5.6 g/dL (2.2-4.2); Glucose 735 mg/dL (74-106); Lipase 97 U/L (73-393); Potassium 4.1 mmol/L (3.5-5.1); Protein, Total 8.7 g/dL (6.4-8.2); Sodium Level 125 mmol/L (136-145)
--- NOTE | 2021-09-29 21:45 | EDS_ITS ---
HPI HPI - GI History of Present Illness Chief Complaint: Abd Pain Informant: patient Abdominal Pain/Flank Pain Onset: Today Context: Gradual Onset Timing: Continuous Quality: Cramping Location: Diffuse Worsened by: Nothing Relieved by: - (Bowel movement) Nausea/Vomiting/Emesis GI Symptom: Positive for Nausea; Negative for Vomiting Diarrhea/Melena/Hematochezia GI Symptom: Negative for Diarrhea, Melena and Hematochezia Associated Symptoms Associated Symptoms: Negative for Dysuria, Frequency and Hematuria Narrative Narrative: Patient presents with abdominal pain, nausea, and lightheadedness that began today. Patient states it is gradually gotten worse today. Patient also admits to some subjective chills. Patient states she felt like she was shaking with her chills. Patient describes her pain is cramping. Patient states it is diffuse across her abdomen. Patient states it seemed to get better for a short amount of time after having a bowel movement today. Patient states nothing makes it worse. Patient admits to nausea but denies any vomiting. Patient denies any diarrhea, melena, or hematochezia. Patient denies any urinary complaints. [facility] Medical History Anemia Arthritis Back pain Bloody stool Diabetes History of frequent headaches Hyperlipidemia Hypertension Hypothyroid Morbid obesity Thyroid disease Home Medications albuterol sulfate 2.5 mg INHALATION Q4H PRN PRN 04/11/18 [History Last Taken Unknown] lisinopril 2.5 mg tablet 2.5 mg PO DAILY 04/11/18 [History Last Taken 10/06/19] fluoxetine 40 mg PO DAILY 02/12/19 [History Last Taken 10/06/19] atorvastatin 20 mg PO QHS 10/06/19 [History Last Taken 10/05/19] levothyroxine 350 mcg PO DAILY 10/06/19 [History Last Taken 10/06/19] acetaminophen 650 mg PO Q6H PRN PRN tab 10/09/19 [Rx Last Taken Unknown] insulin degludec 100 unit SQ DAILY 06/13/20 [History Last Taken Unknown] docusate sodium 100 mg PO DAILY PRN 09/07/20 [History Last Taken Unknown] metformin 1,000 mg PO DAILY 03/29/21 [History Last Taken Unknown] ciprofloxacin HCl 500 mg PO BID #14 tab 07/21/21 [Rx Last Taken Unknown] insulin lispro 46 unit SC TIDAC 07/21/21 [History Last Taken Unknown] ondansetron 4 mg PO Q8H PRN #10 tab 07/21/21 [Rx Last Taken Unknown] insulin lispro [Humalog KwikPen Insulin] 47 unit SUBCUT BID 7 Days #3.29 ml 09/09/21 [Rx Last Taken Unknown] insulin aspart U-100 [Novolog Flexpen U-100 Insulin] 46 unit SUBCUT BID #15 ml 09/29/21 [Rx Last Taken Unknown] Allergy/AdvReac Type Severity Reaction Status Date / Time codeine Allergy Angioedema Verified 09/09/21 18:23 nitrofurantoin Allergy edema Verified 09/09/21 18:23 Penicillins Allergy Rash Verified 09/09/21 18:23 Sulfa (Sulfonamide Allergy Rash Verified 09/09/21 18:23 Antibiotics) sulfamethoxazole [Bactrim] Allergy Unknown Verified 09/09/21 18:23 trimethoprim [Bactrim] Allergy Unknown Verified 09/09/21 18:23 Family History Other Cancer Surgical History Hx of cholecystectomy Social History household members: none Smoking Status: Former smoker alcohol intake: current details: Patient states she does not drink however nurse documents and prior note do substance use type: does not use ROS ROS ED Constitutional Constitutional ED: Reports chills and subjective; Denies fever(s) Eyes Eyes: Reports blurry vision; Denies change in vision ENT ENT ED: Denies rhinorrhea or sore throat Cardiovascular Cardiovascular: Denies chest pain or palpitations Respiratory/Chest Respiratory/Chest: Denies cough or dyspnea Gastrointestinal Gastrointestinal: Reports abdominal pain and nausea; Denies vomiting Genitourinary Genitourinary ED: Denies dysuria or hematuria Musculoskeletal Musculoskeletal: Reports back pain; Denies neck pain Integumentary Denies abscess or rash Neurologic Neurologic: Reports headache(s); Denies weakness Allergic/Immunologic Allergic/Immunologic ED: Denies mouth swelling or urticaria EXAM Physical Exam Const Vital Signs: 09/29/21 18:43 09/29/21 20:43 09/29/21 21:58 Temperature 98.3 F Temperature Source Temporal Pulse Rate 100 88 Respiratory Rate 18 16 14 Blood Pressure 150/71 H 114/65 Blood Pressure Mean 97 81 Pulse Ox 98 95 Oxygen Delivery Method Room Air Room Air Room Air Positive well nourished, well developed and obese General Appearance ED: well developed and NAD Nutritional Appearance: obese HEENT Reports moist mucous membranes Neck supple and no JVD Resp normal respiratory effort and clear to auscultation bilaterally Cardio regular rate, regular rhythm and no murmurs GI normal to inspection, nondistended, normoactive bowel sounds and non-distended Auscultation: normoactive bowel sounds Palpation: soft and tender epigastric, LLQ, RLQ, LUQ, RUQ, periumbilical and suprapubic; Negative for guarding or rebound tenderness present Extremity normal to inspection General Extremety ED: Negative for edema or tenderness General Extremity: Negative for edema Neuro oriented x3, CN's II-XII intact bilaterally and no sensory deficits noted Sensorium / Orientation: alert Motor Exam: strength 5/5 throughout Psych mental status grossly normal Skin no rashes or lesions noted MDM MDM MDM Narrative Medical decision making narrative: Patient was given IV fluids, morphine, and Zofran. CBC shows a mild leukocytosis of 12.6. Comprehensive metabolic profile showed an elevated glucose of 735, sodium was 125, chloride was 91. Anion gap was normal. Creatinine was 1.05. Calculated serum osmolality was 296. Urinalysis shows a leukocyte esterase of 100 with 5-10 white blood cells. There is 0-5 squamous epithelial cells. Glucose was 1000. Patient was given 20 units of Humalog subcutaneous. CT scan of the abdomen pelvis was ordered. There is no acute intra-abdominal abnormality. There is mild hepatosplenomegaly. There is a small punctate stone in the superior pole of the left kidney. This was interpreted by the radiologist and reviewed by myself. Patient's repeat blood glucose was 483. Patient reports that she has been having problems with getting her insulin. Patient states that her insurance company wanted her to change from Humalog to NovoLog. Patient states she has not gotten a prescription for the NovoLog. Patient is agreeable to take the Humalog KwikPen home with her along with needle tips for injection. Patient was instructed to use her normal dose of insulin. Patient was given a prescription for NovoLog. This was sent to her pharmacy. Patient states she will be able to pick this up this weekend. Patient was instructed to drink plenty of fluids. Patient was instructed return if worse in any way. Patient understood and was agreeable with the plan. All questions were answered. Lab Data Attestation: I reviewed the patient's lab results. Labs: Laboratory Results - last 24 hr 09/29/21 09/29/21 09/29/21 20:05 20:10 20:10 WBC 12.6 H RBC 5.07 Hgb 12.5 Hct 40.0 MCV 78.9 L MCH 24.7 L MCHC 31.3 L RDW Std Deviation 45.1 H RDW Coeff of [place] 16.5 H Plt Count 291 MPV 10.4 Immature Gran % (Auto) 1.600 H Neut % (Auto) 70.8 H Lymph % (Auto) 21.8 [place] % (Auto) 4.0 Eos % (Auto) 1.2 Baso % (Auto) 0.6 Absolute Neuts (auto) 8.9 H Absolute Lymphs (auto) 2.74 Nucleated RBC % 0 Sodium 125 L Potassium 4.1 Chloride 91 L Carbon Dioxide 29.0 Anion Gap 5 BUN 14 Creatinine 1.05 H Estim Creat Clear Calc 46.22 Est GFR (MDRD) Af Amer 70 Est GFR (MDRD) Non-Af 58 L BUN/Creatinine Ratio 13.3 Glucose 735 H* Calcium 9.1 Total Bilirubin 0.50 AST 38 H ALT 47 Alkaline Phosphatase 207 H Total Protein 8.7 H Albumin 3.1 L Globulin 5.6 H Albumin/Globulin Ratio 0.6 L Lipase 97 Urine Color Yellow Urine Clarity Clear Urine pH 6.5 Ur Specific [place] 1.005 Urine Protein Negative Urine Glucose (UA) 1000 H Urine Ketones Negative Urine Occult Blood 25 H Urine Nitrite Negative Urine Bilirubin Negative Urine Urobilinogen Normal Ur Leukocyte Esterase 100 H Urine RBC 0 SEEN Urine WBC 5-10 SEEN Ur Squamous Epith Cells 0-5 SEEN Urine Bacteria 0 SEEN Urine Mucus 0 SEEN POC Glucose 09/29/21 22:39 WBC RBC Hgb Hct MCV MCH MCHC RDW Std Deviation RDW Coeff of [place] Plt Count MPV Immature Gran % (Auto) Neut % (Auto) Lymph % (Auto) [place] % (Auto) Eos % (Auto) Baso % (Auto) Absolute Neuts (auto) Absolute Lymphs (auto) Nucleated RBC % Sodium Potassium Chloride Carbon Dioxide Anion Gap BUN Creatinine Estim Creat Clear Calc Est GFR (MDRD) Af Amer Est GFR (MDRD) Non-Af BUN/Creatinine Ratio Glucose Calcium Total Bilirubin AST ALT Alkaline Phosphatase Total Protein Albumin Globulin Albumin/Globulin Ratio Lipase Urine Color Urine Clarity Urine pH Ur Specific Central Urine Protein Urine Glucose (UA) Urine Ketones Urine Occult Blood Urine Nitrite Urine Bilirubin Urine Urobilinogen Ur Leukocyte Esterase Urine RBC Urine WBC Ur Squamous Epith Cells Urine Bacteria Urine Mucus POC Glucose 483 H* Radiography Diagnostic Testing: Clinical Impression(s) from Imaging Studies Abdomen/Pelvis CT 09/29/21 22:02 IMPRESSION: No acute intra-abdominal pathology. Moderate splenomegaly and mild hepatic enlargement. Punctate nonobstructing stone superior pole left kidney. Electronically Signed: Tadeo Butts DO at 22:57 EST , Discharge Plan Triage Chief Complaint: Abd Pain ED Provider: [place] Dx/Rx/DC Orders Clinical Impression: Hyperglycemia Instructions: ED Diabetic Hyperglycemia Prescriptions: New insulin aspart U-100 [Novolog Flexpen U-100 Insulin] 100 unit/mL (3 mL) insulin pen 46 unit subcut BID Qty: 15 RF: 0 No Action albuterol sulfate 2.5 mg /3 mL (0.083 %) solution for nebulization 2.5 mg INHALATION Q4H PRN PRN (Reason: Sob &/Or Wheezing) RF: 0 lisinopril 2.5 mg tablet 2.5 mg PO DAILY RF: 0 fluoxetine 40 MG capsule 40 mg PO DAILY RF: 0 atorvastatin 20 MG tablet 20 mg PO QHS RF: 0 levothyroxine 200 MCG tablet 350 mcg PO DAILY RF: 0 acetaminophen 325 MG tablet 650 mg PO Q6H PRN PRN (Reason: Pain Score 1-10/Temp > 100.7 F) RF: 0 insulin degludec 200 UNIT/ML insulin pen 100 unit SQ DAILY RF: 0 docusate sodium 100 MG capsule 100 mg PO DAILY PRN (Reason: Constipation) RF: 0 metformin 500 mg tablet extended release 24 hr 1,000 mg PO DAILY RF: 0 insulin lispro 100 UNIT/ML insulin pen 46 unit SC TIDAC RF: 0 ciprofloxacin HCl 500 mg tablet 500 mg PO BID Qty: 14 RF: 0 ondansetron 4 mg tablet,disintegrating 4 mg PO Q8H PRN (Reason: nausea and vomiting) Qty: 10 RF: 0 Humalog KwikPen Insulin 200 unit/mL (3 mL) insulin pen 47 unit subcut BID 7 Days Qty: 3.29 RF: 0 Primary Care Provider: Tj Douglass Referrals: Tj Douglsas MD [Primary Care Provider] - 3-5 Days Disposition Disposition: Home, Self Care
[2021-09-29] MEDS: Insulin Lispro 100 UNIT/ML INSULN.PEN 20 UNIT SC (21:52)
[2021-09-29 21:58] VITALS: BP 114/65; PULSE 88; RESP 14; O2SAT 95
--- NOTE | 2021-09-29 22:02 | CT_ITS ---
INDICATION: Abdominal pain -- IV PO Contrast EXAMINATION: CT ABDOMEN AND PELVIS WITH CONTRAST - CT Abdomen And Pelvis W/ Contrast Injection TECHNIQUE: Helically acquired images were obtained of the abdomen and pelvis following IV contrast. A radiation dose optimization technique was used for this scan. IV Contrast dosage and agent: 100 mL of ISOVUE-300. Oral contrast: Dilute GASTROGRAFIN. COMPARISON: CT abdomen and pelvis 03/31/2021. FINDINGS: LOWER CHEST: Lung bases are clear. No cardiomegaly or pericardial effusion. Mitral calcification and/or valve replacement. LIVER: Liver is upper limit of normal size. Normal echogenicity and normal contour. No focal mass. GALLBLADDER AND BILIARY TREE: Patient is status post cholecystectomy. No intra- or extrahepatic biliary ductal dilation. PANCREAS: No focal cystic or solid mass. SPLEEN: Moderate splenomegaly not appreciably changed compared to prior exam. Multiple punctate splenic calcifications from prior granulomatous infection. ADRENAL GLANDS: No nodules. KIDNEYS, URETERS and BLADDER: Normal renal size and position. No mass. No hydronephrosis. There is a nonobstructing punctate stone in the mid upper pole left kidney. This was present on the prior comparison exam. Bladder is unremarkable. PERITONEUM: No ascites or free air. No other fluid collection. BOWEL: No evidence of acute appendicitis. No abnormally distended bowel loops or air fluid levels. No wall thickening or mass. No focal inflammatory changes. LYMPH NODES: No enlarged mesenteric or retroperitoneal lymph nodes. VESSELS: Aorta is non-dilated. REPRODUCTIVE ORGANS: Intrauterine contraceptive device noted. Uterus is normal in appearance. Unremarkable bilateral ovaries. Single surgical clip left adnexa. Ring of metallic density right adnexa, unchanged from prior exam. ABDOMINAL WALL: No discrete abdominal or pelvic wall hernia. BONES: No fracture or focal osseous lesion. Moderate facet arthropathy lower lumbar spine. CT/Abdomen/Pelvis WITH Contrast IMPRESSION: No acute intra-abdominal pathology. Moderate splenomegaly and mild hepatic enlargement. Punctate nonobstructing stone superior pole left kidney. Electronically Signed: Tadeo Butts DO at 22:57 EST ,
[2021-09-29 22:46] LABS: Bedside Glucose 483 mg/dL (74-106)
[2021-09-29 23:57] VITALS: BP 122/76; PULSE 80; RESP 15; O2SAT 98
--- NOTE | 2021-09-29 23:57 | ED.RN ---
per ed dr's order humalog quick pen with 280 units and 6 needles sent home with pt for use over the weekend. 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 stated medication was same as what she takes at home and no change was made pt her sliding scale based dosing. pt expressed understanding and education was provided on discharge diagnosis. slick marin rn [id number] 09/30/21
[2021-09-30 00:01] LABS: Bedside Glucose 345 mg/dL (74-106)
== END 2021-09-30 00:03 | disposition home or self-care (01) ==
PROVIDERS: Emergency Provider Emergency Medicine; PCP Family Medicine; Visit Provider Emergency Medicine
DX: E11.65 Type 2 diabetes mellitus with hyperglycemia (principal); E66.01 Morbid (severe) obesity due to excess calories; Z79.4 Long term (current) use of insulin; E03.9 Hypothyroidism, unspecified; E78.5 Hyperlipidemia, unspecified; M19.90 Unspecified osteoarthritis, unspecified site; Z90.49 Acquired absence of other specified parts of digestive tract; Z79.84 Long term (current) use of oral hypoglycemic drugs; Z79.899 Other long term (current) drug therapy; Z87.891 Personal history of nicotine dependence
CPT/HCPCS: 74177; 80053; 81001; 82962; 83690; 85025; 96361; 96374; 99284; J7030; Q9967; A4216; J2405

== ENCOUNTER 2022-02-09 17:42 | Inpatient (IN) | payer OTHER, SELFPAY ==
[2022-02-09 17:44] VITALS: BP 138/80; PULSE 105; RESP 14; TEMP 36.1; O2SAT 95; BMI 44.1
--- NOTE | 2022-02-09 18:05 | EX.ED.DYSGE1 ---
HPI <DAVID Bravo - Last Filed: 02/09/22 18:53> History of Present Illness Chief Complaint: Fatigue Narrative Narrative: 56-year-old female with history of diabetes, hypothyroidism, obesity, depression presents to the emergency department with 2 weeks of noncompliance with any of her medications. Patient states over the last week she has felt depressed, she ran out of test strips, she is decided not to take any of her medications. Patient has had history of not taking her medications in the past. Patient states that she gets in these funk periods and does not want to take care of her self. Patient denies any suicidal homicidal ideation. Patient states that she feels very fatigued, she feels drowsy and sleepy. She denies any fevers or chills. She also states to have frequent urination concerning for UTI. Patient sugar was high on evaluation. PFS <DAVID Bravo - Last Filed: 02/09/22 18:53> [facility] Medical History Anemia Arthritis Back pain Bloody stool Diabetes History of frequent headaches Hyperlipidemia Hypertension Hypothyroid Morbid obesity Thyroid disease Home Medications albuterol sulfate 2.5 mg/3 mL (0.083 %) solution for nebulization 2.5 mg inhalation Q4H PRN PRN Sob &/Or Wheezing 04/11/18 [History Last Taken Unknown] lisinopril 2.5 mg tablet 2.5 mg PO DAILY BP 04/11/18 [History Last Taken 10/06/19] fluoxetine 40 mg capsule 40 mg PO DAILY DEPRESSION 02/12/19 [History Last Taken 10/06/19] atorvastatin 20 mg tablet 20 mg PO QHS CHOLESTEROL 10/06/19 [History Last Taken 10/05/19] levothyroxine 200 mcg tablet 350 mcg PO DAILY THYROID 10/06/19 [History Last Taken 10/06/19] acetaminophen 325 mg tablet 650 mg PO Q6H PRN PRN Pain Score 1-10/Temp > 100.7 F 10/09/19 [Rx Last Taken Unknown] insulin degludec 200 unit/mL (3 mL) subcutaneous pen 100 unit SQ DAILY dm 06/13/20 [History Last Taken Unknown] docusate sodium 100 mg capsule 100 mg PO DAILY PRN Constipation 09/07/20 [History Last Taken Unknown] metformin 500 mg tablet,extended release 24 hr 1,000 mg PO DAILY dm 03/29/21 [History Last Taken Unknown] insulin lispro 100 unit/mL subcutaneous pen 46 unit SC TIDAC dm 07/21/21 [History Last Taken Unknown] Allergy/AdvReac Type Severity Reaction Status Date / Time codeine Allergy Angioedema Verified 02/09/22 17:44 nitrofurantoin Allergy edema Verified 02/09/22 17:44 Penicillins Allergy Rash Verified 02/09/22 17:44 Sulfa (Sulfonamide Allergy Rash Verified 02/09/22 17:44 Antibiotics) sulfamethoxazole [Bactrim] Allergy Unknown Verified 02/09/22 17:44 trimethoprim [Bactrim] Allergy Unknown Verified 02/09/22 17:44 Family History Other Cancer Surgical History Hx of cholecystectomy Social History household members: none Smoking Status: Former smoker alcohol intake: current details: Patient states she does not drink however nurse documents and prior note do substance use type: does not use ROS <DAVID Bravo - Last Filed: 02/09/22 18:53> ROS ED ROS Narrative Constitutional: Negative for fever, chills, weight loss. Positive for weakness, generalized fatigue Eyes: Negative for vision loss, vision change, double vision ENT: Negative for any sore throat, ear pain, congestion Cardiovascular: Negative for any chest pain, tightness, palpitations Respiratory: Negative for any cough, sputum production, hemoptysis, dyspnea, dyspnea on exertion, orthopnea Gastrointestinal: Negative for any abdominal pain, nausea, vomiting, diarrhea, constipation, blood in stool, blood in vomit. Positive for increased thirst : Negative for any dysuria, retention, blood in urine. Positive for urinary frequency Muscle skeletal: Negative for any muscle joint pain, stiffness, myalgias, arthralgias, neck pain, back pain Neurological: Negative for any headache, syncope, numbness or tingling, dizziness. Positive for feeling of sleepiness, somnolence Skin: Negative for any rashes, lumps, itching, abrasions, lacerations Psychiatric: Negative for any depression, anxiety, stress, suicidal ideation, homicidal ideation Hematologic: Negative for any easy bruising, excessive bruising, easy bleeding Allergies: Negative for any eczema, hives, rash EXAM <DAVID Bravo - Last Filed: 02/09/22 18:53> Physical Exam Narrative Exam Narrative: Vital signs reviewed. Patient is alert and orient x4. Patient appears to be in no respiratory distress. Patient is stable. HEET: Head normocephalic atraumatic, TMs clear bilaterally. Posterior pharynx is clear, dry mucous membranes. Nares clear bilaterally. Neck: Supple with no lymphadenopathy or tenderness. No signs of meningismus, negative jolt sign. Cardiac: R tachycardic rate no murmurs gallops or rubs, equal peripheral pulses bilaterally. Respiratory: Lungs clear to auscultation bilaterally. No chest tenderness. Abdomen: Soft, nontender, nondistended. No abdominal bruit or pulsatile masses. No hepatosplenomegaly Extremities: No peripheral edema, no signs of gross trauma or deformity. Active full range of motion of all extremities. Neuro: Cranial nerves II through XII intact, no focal neurological deficits. Skin: Clean dry and intact with no rash, purpura, petechiae, vesicles or pustules. Backs/flank: No CVA tenderness, no midline spinal tenderness, no deformity. Psych: Normal mood and affect. No SI, HI or acute psychosis. Const Vital Signs: 02/09/22 17:44 02/09/22 19:39 Temperature 97 F L 97.9 F Temperature Source Temporal Oral Pulse Rate 105 H 99 Respiratory Rate 14 18 Blood Pressure 138/80 H 117/68 Blood Pressure Mean 99 84 Pulse Ox 95 97 Oxygen Delivery Method Room Air Room Air <Dr. Candy Archuleta DO - Last Filed: 02/09/22 23:29> Physical Exam Const Vital Signs: 02/09/22 17:44 02/09/22 19:39 Temperature 97 F L 97.9 F Temperature Source Temporal Oral Pulse Rate 105 H 99 Respiratory Rate 14 18 Blood Pressure 138/80 H 117/68 Blood Pressure Mean 99 84 Pulse Ox 95 97 Oxygen Delivery Method Room Air Room Air MDM <DAVID Bravo - Last Filed: 02/09/22 18:53> MDM Lab Data Labs: Laboratory Results - last 24 hr 02/09/22 02/09/22 02/09/22 18:15 18:15 18:15 WBC 9.0 RBC 4.94 Hgb 11.8 L Hct 38.0 MCV 76.9 L MCH 23.9 L MCHC 31.1 L RDW Std Deviation 44.8 H RDW Coeff of [place] 16.3 H Plt Count 271 MPV 10.3 Immature Gran % (Auto) 1.800 H Neut % (Auto) 61.2 Lymph % (Auto) 29.7 Story % (Auto) 4.9 Eos % (Auto) 1.7 Baso % (Auto) 0.7 Absolute Neuts (auto) 5.5 Absolute Lymphs (auto) 2.68 Nucleated RBC % 0 Sodium 125 L Potassium 5.0 Chloride 91 L Carbon Dioxide 27.0 Anion Gap 7 BUN 14 Creatinine 1.05 H Estim Creat Clear Calc 45.68 Est GFR (MDRD) Af Amer 70 Est GFR (MDRD) Non-Af 58 L BUN/Creatinine Ratio 13.3 Glucose 629 H* Serum Osmolality Lactic Acid Calcium 9.7 Total Bilirubin 0.50 AST 70 H ALT 56 Alkaline Phosphatase 210 H Total Protein 8.8 H Albumin 2.9 L Globulin 5.9 H Albumin/Globulin Ratio 0.5 L Lipase 96 TSH 53.20 H Free T4 Free T3 pg/dL Urine Color Urine Clarity Urine pH Ur Specific [place] Urine Protein Urine Glucose (UA) Urine Ketones Urine Occult Blood Urine Nitrite Urine Bilirubin Urine Urobilinogen Ur Leukocyte Esterase Urine RBC Urine WBC Ur Squamous Epith Cells Amorphous Sediment Urine Bacteria Urine Mucus Urine Test Acetone Level NEGATIVE POC Glucose 02/09/22 02/09/22 02/09/22 18:15 18:15 18:15 WBC RBC Hgb Hct MCV MCH MCHC RDW Std Deviation RDW Coeff of [place] Plt Count MPV Immature Gran % (Auto) Neut % (Auto) Lymph % (Auto) Story % (Auto) Eos % (Auto) Baso % (Auto) Absolute Neuts (auto) Absolute Lymphs (auto) Nucleated RBC % Sodium Potassium Chloride Carbon Dioxide Anion Gap BUN Creatinine Estim Creat Clear Calc Est GFR (MDRD) Af Amer Est GFR (MDRD) Non-Af BUN/Creatinine Ratio Glucose Serum Osmolality Lactic Acid 2.3 H* Calcium Total Bilirubin AST ALT Alkaline Phosphatase Total Protein Albumin Globulin Albumin/Globulin Ratio Lipase TSH Free T4 0.50 L Free T3 pg/dL 1.7 L Urine Color Yellow Urine Clarity Cloudy Urine pH 6.0 Ur Specific [place] 1.010 Urine Protein 15 H Urine Glucose (UA) 1000 H Urine Ketones Negative Urine Occult Blood 150 H Urine Nitrite Positive H Urine Bilirubin Negative Urine Urobilinogen Normal Ur Leukocyte Esterase 500 H Urine RBC 25-50 SEEN Urine WBC 50-100 SEEN Ur Squamous Epith Cells 0-5 SEEN Amorphous Sediment 1+ URATE Urine Bacteria 2+ Urine Mucus 0 SEEN Urine Test Negative Acetone Level POC Glucose 02/09/22 02/09/22 18:15 19:33 WBC RBC Hgb Hct MCV MCH MCHC RDW Std Deviation RDW Coeff of [place] Plt Count MPV Immature Gran % (Auto) Neut % (Auto) Lymph % (Auto) Story % (Auto) Eos % (Auto) Baso % (Auto) Absolute Neuts (auto) Absolute Lymphs (auto) Nucleated RBC % Sodium Potassium Chloride Carbon Dioxide Anion Gap BUN Creatinine Estim Creat Clear Calc Est GFR (MDRD) Af Amer Est GFR (MDRD) Non-Af BUN/Creatinine Ratio Glucose Serum Osmolality 301 H Lactic Acid Calcium Total Bilirubin AST ALT Alkaline Phosphatase Total Protein Albumin Globulin Albumin/Globulin Ratio Lipase TSH Free T4 Free T3 pg/dL Urine Color Urine Clarity Urine pH Ur Specific [place] Urine Protein Urine Glucose (UA) Urine Ketones Urine Occult Blood Urine Nitrite Urine Bilirubin Urine Urobilinogen Ur Leukocyte Esterase Urine RBC Urine WBC Ur Squamous Epith Cells Amorphous Sediment Urine Bacteria Urine Mucus Urine Test Acetone Level POC Glucose > 500 H* ABG Data ABG results: ABG 02/09/22 18:48 Specimen Type ART Sample Site L Radial pH 7.38 Bicarbonate Actual 26.6 H Total CO2 28 Base Excess 2 O2 Saturation 96 ABG pCO2 45.2 H ABG pO2 81 Ervin Test Positive O2 Delivery Device Room Air Treatment and Re-Evaluation Narrative: Patient appears well, patient appears generally nontoxic, vital signs are stable. Patient states over the last 2 weeks she has been more depressed, not being compliant with her home medications. Patient states her last 2-week she has been more fatigued, increase in urination, feels that her blood sugars under control. Patient will receive a DKA work-up here in the emergency department. <Dr. Candy Archuleta, DO - Last Filed: 02/09/22 23:29> [facility] MDM Narrative Medical decision making narrative: I have personally performed a face to face assessment of the patient and have reviewed the LAZARO Note. I performed a substantive portion of the visit including all aspects of the following. My christianson findings include: History is patient is a 56-year-old female presenting for medication noncompliance, high blood sugars and urinary frequency. Patient states she gets episodes where she does not feel like taking her medications but also recently ran out of her testers. Denies any HI or SI. Besides urinary frequency also complaining of generalized malaise, fatigue and sleepiness. No other complaints at this time. Exam is patient lying in bed, no acute distress. Slightly somnolent. Head normocephalic atraumatic. Dry mucosal membranes. Neck is supple. Heart regular rate and rhythm. Lungs are clear to auscultation. Abdomen soft and nontender. No peritoneal signs. No significant peripheral edema appreciated. No focal neurologic deficits. No rash. Medical Decision Making Patient evaluated for hyperglycemia, urinary symptoms and generalized malaise/fatigue. She is been noncompliant with her diabetic medications. CBC is remarkable only for mild anemia with a hemoglobin of 11.8. She has a pseudohyponatremia of 125 with a creatinine at her baseline 1.05. Her glucose is significantly elevated at 629. Her anion gap is normal at 7. Patient's given IV fluids in the emergency room. She is found to have a urinary tract infection by urinalysis. Urine culture sent and she started on IV Rocephin. Initial lactate is elevated 2.3. It is possible this could be from infection however it also could just be dehydration related. Acetone is negative. Patient's calculated serum osmolality is 290. She does not meet criteria for DKA or HHNK. Given her medication noncompliance, elevated TSH (presumed from not taking her thyroid medication) hyperglycemia and UTI she will be admitted for further management. She is agreeable this plan of care. Discussed the case with case management because of what sounds like some issues with depression and access to her testing strips and other healthcare supplies. Other additions or changes: [None] Lab Data Attestation: I reviewed the patient's lab results. Labs: Laboratory Results - last 24 hr 02/09/22 02/09/22 02/09/22 18:15 18:15 18:15 WBC 9.0 RBC 4.94 Hgb 11.8 L Hct 38.0 MCV 76.9 L MCH 23.9 L MCHC 31.1 L RDW Std Deviation 44.8 H RDW Coeff of [place] 16.3 H Plt Count 271 MPV 10.3 Immature Gran % (Auto) 1.800 H Neut % (Auto) 61.2 Lymph % (Auto) 29.7 Story % (Auto) 4.9 Eos % (Auto) 1.7 Baso % (Auto) 0.7 Absolute Neuts (auto) 5.5 Absolute Lymphs (auto) 2.68 Nucleated RBC % 0 Sodium 125 L Potassium 5.0 Chloride 91 L Carbon Dioxide 27.0 Anion Gap 7 BUN 14 Creatinine 1.05 H Estim Creat Clear Calc 45.68 Est GFR (MDRD) Af Amer 70 Est GFR (MDRD) Non-Af 58 L BUN/Creatinine Ratio 13.3 Glucose 629 H* Serum Osmolality Lactic Acid Calcium 9.7 Total Bilirubin 0.50 AST 70 H ALT 56 Alkaline Phosphatase 210 H Total Protein 8.8 H Albumin 2.9 L Globulin 5.9 H Albumin/Globulin Ratio 0.5 L Lipase 96 TSH 53.20 H Free T4 Free T3 pg/dL Urine Color Urine Clarity Urine pH Ur Specific [place] Urine Protein Urine Glucose (UA) Urine Ketones Urine Occult Blood Urine Nitrite Urine Bilirubin Urine Urobilinogen Ur Leukocyte Esterase Urine RBC Urine WBC Ur Squamous Epith Cells Amorphous Sediment Urine Bacteria Urine Mucus Urine Test Acetone Level NEGATIVE POC Glucose 02/09/22 02/09/22 02/09/22 18:15 18:15 18:15 WBC RBC Hgb Hct MCV MCH MCHC RDW Std Deviation RDW Coeff of [place] Plt Count MPV Immature Gran % (Auto) Neut % (Auto) Lymph % (Auto) Story % (Auto) Eos % (Auto) Baso % (Auto) Absolute Neuts (auto) Absolute Lymphs (auto) Nucleated RBC % Sodium Potassium Chloride Carbon Dioxide Anion Gap BUN Creatinine Estim Creat Clear Calc Est GFR (MDRD) Af Amer Est GFR (MDRD) Non-Af BUN/Creatinine Ratio Glucose Serum Osmolality Lactic Acid 2.3 H* Calcium Total Bilirubin AST ALT Alkaline Phosphatase Total Protein Albumin Globulin Albumin/Globulin Ratio Lipase TSH Free T4 0.50 L Free T3 pg/dL 1.7 L Urine Color Yellow Urine Clarity Cloudy Urine pH 6.0 Ur Specific [place] 1.010 Urine Protein 15 H Urine Glucose (UA) 1000 H Urine Ketones Negative Urine Occult Blood 150 H Urine Nitrite Positive H Urine Bilirubin Negative Urine Urobilinogen Normal Ur Leukocyte Esterase 500 H Urine RBC 25-50 SEEN Urine WBC 50-100 SEEN Ur Squamous Epith Cells 0-5 SEEN Amorphous Sediment 1+ URATE Urine Bacteria 2+ Urine Mucus 0 SEEN Urine Test Negative Acetone Level POC Glucose 02/09/22 02/09/22 18:15 19:33 WBC RBC Hgb Hct MCV MCH MCHC RDW Std Deviation RDW Coeff of [place] Plt Count MPV Immature Gran % (Auto) Neut % (Auto) Lymph % (Auto) Story % (Auto) Eos % (Auto) Baso % (Auto) Absolute Neuts (auto) Absolute Lymphs (auto) Nucleated RBC % Sodium Potassium Chloride Carbon Dioxide Anion Gap BUN Creatinine Estim Creat Clear Calc Est GFR (MDRD) Af Amer Est GFR (MDRD) Non-Af BUN/Creatinine Ratio Glucose Serum Osmolality 301 H Lactic Acid Calcium Total Bilirubin AST ALT Alkaline Phosphatase Total Protein Albumin Globulin Albumin/Globulin Ratio Lipase TSH Free T4 Free T3 pg/dL Urine Color Urine Clarity Urine pH Ur Specific [place] Urine Protein Urine Glucose (UA) Urine Ketones Urine Occult Blood Urine Nitrite Urine Bilirubin Urine Urobilinogen Ur Leukocyte Esterase Urine RBC Urine WBC Ur Squamous Epith Cells Amorphous Sediment Urine Bacteria Urine Mucus Urine Test Acetone Level POC Glucose > 500 H* ABG Data ABG results: ABG 02/09/22 18:48 Specimen Type ART Sample Site L Radial pH 7.38 Bicarbonate Actual 26.6 H Total CO2 28 Base Excess 2 O2 Saturation 96 ABG pCO2 45.2 H ABG pO2 81 Ervin Test Positive O2 Delivery Device Room Air Discharge Plan Dx/Rx/DC Orders Clinical Impression: Lactic acidosis, UTI (urinary tract infection), Hyperglycemia due to diabetes mellitus, Depression, Noncompliance with medication regimen Disposition Disposition: Acute Care [facility] Discharge Date/Time: 02/09/22 20:31
[2022-02-09] MEDS: 0.9% Normal Saline 1,000 ML 1000 ML IV (18:20)
[2022-02-09 18:22] LABS: Mucous, Urine 0 SEEN /hpf (<or=2+)
[2022-02-09 18:25] LABS: Absolute Lymphocyte Count 2.68 X10^3/uL (0.83-4.51); Absolute Neutrophil Count 5.5 X10^3/uL (2.0-7.7); Basophil# 0.06 X10^3/uL; Basophil% 0.7 % (0-1); Eosinophil# 0.15 X10^3/uL; Eosinophils% 1.7 % (0-5); Hemoglobin 11.8 g/dL (12.0-15.0); Lymphocyte # 2.68 X10^3/ul (0.83-4.51); Lymphocyte % 29.7 % (19-41); Mean Corp Hgb Conc 31.1 g/dL (32-36); Mean Corpuscular Hgb 23.9 pg (27.0-32.0); Mean Corpuscular Volume 76.9 fL (81-99); Mean Platelet Vol. 10.3 fl (6.2-12.0); Monocyte# 0.44 X10^3/uL; Monocyte% 4.9 % (0-10); NRBC Flagged by Analyzer 0 % (0-5); Neutrophil # 5.53 X10^3/uL (2.7-7.7); Neutrophil % 61.2 % (47-70); Platelet Count 271 K/mm3 (150-450); RBC Distribution Width CV 16.3 % (11.6-14.6); RBC Distribution Width SD 44.8 fl (35.1-43.9); Red Blood Count 4.94 M/mm3 (4.2-5.4)
[2022-02-09 18:30] LABS: Color, Urine Yellow (Yellow); Glucose, Dipstick 1000 mg/dl (Normal); Ketone-Dipstick Negative (Negative); Leukocyte Esterase-Dipstick 500 /ul (Negative); Nitrite-Dipstick Positive (Negative); Occult Blood-Urine 150 /ul (Negative); Protein-Dipstick 15 mg/dl (Negative); Urine Bilirubin Dipstick Negative (Negative); Urine Clarity Cloudy (Clear); Urine Urobilinogen Normal (Normal)
[2022-02-09 18:50] LABS: Internal QC Validated? YES +Cl - CLEAR BKGD; Pregnancy, Urine Negative Negative
[2022-02-09 18:52] LABS: Bacteria 2+ /hpf (None Seen); Red Blood Cells-Urine 25-50 SEEN /hpf (0-5); Squamous Epithelial Cells - UA 0-5 SEEN /hpf (5-10); White Blood Cells 50-100 SEEN /hpf (0-5)
[2022-02-09 18:53] LABS: Amorphous Sediment 1+ URATE
[2022-02-09 18:55] LABS: Allen Test Positive; Base Excess 2 mmol/L (-2 to +2); Bicarbonate 26.6 mmol/L (22-26); Blood Gas Specimen Type ART; O2 Delivery Device Room Air; PO2 81 mmHG (75-100); SITE L Radial; SO2 96 % (95-99); Total Carbon Dioxide 28 mmol/L; pCO2 45.2 mmHg (35-45); pH 7.38 (7.35-7.45)
[2022-02-09 19:05] LABS: Lactic Acid 2.3 mmol/L (0.4-1.9)
[2022-02-09 19:07] LABS: ALB/GLOB Ratio 0.5 RATIO (0.9-2.4); AST(SGOT) 70 U/L (15-37); Alanine Aminotransfer ALT/SGPT 56 U/L (13-56); Albumin, Serum 2.9 g/dL (3.2-5.0); Alkaline Phosphatase 210 U/L (45-117); Anion Gap 7 (5-15); BUN 14 mg/dL (7-18); BUN/Creat Ratio 13.3 RATIO (10-20); Calcium,Total 9.7 mg/dL (8.5-10.1); Chloride 91 mmol/L (98-107); Creatinine, Serum 1.05 mg/dL (0.55-1.02); EST Glomerular Filtration Rate 58 mL/min (>60); Est Glom Filt Rate - Afr Amer 70 mL/min (>60); Estimated Creatinine Clearance 45.68 ml/min; Globulin 5.9 g/dL (2.2-4.2); Glucose 629 mg/dL (74-106); Lipase 96 U/L (73-393); Protein, Total 8.8 g/dL (6.4-8.2); Sodium Level 125 mmol/L (136-145)
[2022-02-09] MEDS: Ceftriaxone 1 GM/50 ML BAG IV (19:13)
--- NOTE | 2022-02-09 19:17 | HP.PCM.HOS_ITS ---
HPI - General General Date of Admission: 02/09/22 Date of Service: 02/09/22 Chief Complaint: Depression HPI Narrative LEROY TYLER, is a 56 F who presents to the emergency department with depression. Patient report that her best friend about 1 month ago. Ever since patient has been depressed. She report that she has not been taking her medicine for the past 1 month secondary to depression. Her symptoms has worsened in the past 3 to 4 days. She reports symptoms of lethargy; sleepiness; weakness; losing her balance and feeling woozy. She reports increased frequency of urination; dry mouth; and polydipsia. She reports anorexia. [facility] Medical History Anemia Arthritis Back pain Bloody stool Diabetes History of frequent headaches Hyperlipidemia Hypertension Hypothyroid Morbid obesity Thyroid disease Home Medications albuterol sulfate 2.5 mg/3 mL (0.083 %) solution for nebulization 2.5 mg inhalation Q4H PRN PRN Sob &/Or Wheezing 04/11/18 [History Last Taken Unknown] lisinopril 2.5 mg tablet 2.5 mg PO DAILY BP 04/11/18 [History Last Taken 10/06/19] fluoxetine 40 mg capsule 40 mg PO DAILY DEPRESSION 02/12/19 [History Last Taken 10/06/19] atorvastatin 20 mg tablet 20 mg PO QHS CHOLESTEROL 10/06/19 [History Last Taken 10/05/19] levothyroxine 200 mcg tablet 350 mcg PO DAILY THYROID 10/06/19 [History Last Taken 10/06/19] acetaminophen 325 mg tablet 650 mg PO Q6H PRN PRN Pain Score 1-10/Temp > 100.7 F 10/09/19 [Rx Last Taken Unknown] insulin degludec 200 unit/mL (3 mL) subcutaneous pen 100 unit SQ DAILY dm 06/13/20 [History Last Taken Unknown] docusate sodium 100 mg capsule 100 mg PO DAILY PRN Constipation 09/07/20 [History Last Taken Unknown] metformin 500 mg tablet,extended release 24 hr 1,000 mg PO DAILY dm 03/29/21 [History Last Taken Unknown] insulin lispro 100 unit/mL subcutaneous pen 46 unit SC TIDAC dm 07/21/21 [History Last Taken Unknown] Allergy/AdvReac Type Severity Reaction Status Date / Time codeine Allergy Angioedema Verified 02/09/22 17:44 nitrofurantoin Allergy edema Verified 02/09/22 17:44 Penicillins Allergy Rash Verified 02/09/22 17:44 Sulfa (Sulfonamide Allergy Rash Verified 02/09/22 17:44 Antibiotics) sulfamethoxazole [Bactrim] Allergy Unknown Verified 02/09/22 17:44 trimethoprim [Bactrim] Allergy Unknown Verified 02/09/22 17:44 Family History Other Cancer Surgical History Hx of cholecystectomy Social History household members: none Smoking Status: Former smoker alcohol intake: current details: Patient states she does not drink however nurse documents and prior note do substance use type: does not use ROS ROS Narrative 1. Pertinent positives and pertinent negatives as noted in HPI. All other systems were reviewed and are negative. Vital Signs Vital Signs Vital Signs: 02/09/22 17:44 Temperature 97 F L Temperature Source Temporal Pulse Rate 105 H Respiratory Rate 14 Blood Pressure 138/80 H Blood Pressure Mean 99 Pulse Ox 95 Oxygen Delivery Method Room Air Weight Weight: 106 kg Body Mass Index (BMI) 44.1 Physical Exam Narrative Physical exam: General: Well-nourished, well-developed. Head: Normocephalic, atraumatic, no tenderness Eyes: Vision is grossly intact. EOMI ENT, no trauma, moist mucous membranes, no rhinorrhea Neck: Nontender, full range of motion, no spinal tenderness, deformities, step- off CVS: Regular rate and rhythm. S1-S2 present. No murmur, gallop or rub. Respiratory : clear to auscultation bilaterally, chest wall nontender, no wheezing Abdomen: Soft, nontender, nondistended, normal bowel sounds, no masses : Deferred Back: Nontender, no CVA tenderness, no midline spinal tenderness, deformities, step-offs Extremities: Nontender full range of motion, no trauma Skin: Normal color, no trauma, abrasions Neuro: Alert, oriented, cranial nerves II through XII grossly intact. Psychiatry: Normal mood. Normal affect. Not depressed. Not anxious. Results Lab / Micro Data Result Diagrams: 02/09/22 18:15 02/09/22 18:15 Labs: Laboratory Results - last 24 hr 02/09/22 18:15: WBC 9.0, RBC 4.94, Hgb 11.8 L, Hct 38.0, MCV 76.9 L, MCH 23.9 L, MCHC 31.1 L, RDW Std Deviation 44.8 H, RDW Coeff of [place] 16.3 H, Plt Count 271, MPV 10.3, Immature Gran % (Auto) 1.800 H, Neut % (Auto) 61.2, Lymph % (Auto) 29.7, [place] % (Auto) 4.9, Eos % (Auto) 1.7, Baso % (Auto) 0.7, Absolute Neuts (auto) 5.5, Absolute Lymphs (auto) 2.68, Nucleated RBC % 0 02/09/22 18:15: Sodium 125 L, Potassium 5.0, Chloride 91 L, Carbon Dioxide 27.0, Anion Gap 7, BUN 14, Creatinine 1.05 H, Estim Creat Clear Calc 45.68, Est GFR (MDRD) Af Amer 70, Est GFR (MDRD) Non-Af 58 L, BUN/Creatinine Ratio 13.3, Glucose 629 H*, Calcium 9.7, Total Bilirubin 0.50, AST 70 H, ALT 56, Alkaline Phosphatase 210 H, Total Protein 8.8 H, Albumin 2.9 L, Globulin 5.9 H, Albumin/Globulin Ratio 0.5 L, Lipase 96, TSH 53.20 H 02/09/22 18:15: Acetone Level NEGATIVE 02/09/22 18:15: Lactic Acid 2.3 H* 02/09/22 18:15: Urine Color Yellow, Urine Clarity Cloudy, Urine pH 6.0, Ur S pecific [place] 1.010, Urine Protein 15 H, Urine Glucose (UA) 1000 H, Urine Ketones Negative, Urine Occult Blood 150 H, Urine Nitrite Positive H, Urine Bilirubin Negative, Urine Urobilinogen Normal, Ur Leukocyte Esterase 500 H, Urine RBC 25-50 SEEN, Urine WBC 50-100 SEEN, Ur Squamous Epith Cells 0-5 SEEN, Amorphous Sediment 1+ URATE, Urine Bacteria 2+, Urine Mucus 0 SEEN, Urine Preg elpidio Test Negative ABG Data ABG results: ABG 02/09/22 18:48 Specimen Type ART Sample Site L Radial pH 7.38 Bicarbonate Actual 26.6 H Total CO2 28 Base Excess 2 O2 Saturation 96 ABG pCO2 45.2 H ABG pO2 81 Ervin Test Positive O2 Delivery Device Room Air Assessment & Plan Assessment/Plan (1) Hyperglycemia due to diabetes mellitus: PLAN: (2) Hypothyroidism: PLAN: TSH emergency department was 53.20. Free T4 of 0.50 low and free T3 of 1.7 low. (3) Depression: (4) UTI (urinary tract infection): (5) Lactic acidosis: PLAN: Plan Hyperglycemia due to diabetes mellitus Serum glucose 125. Serum glucose of 629 on presentation. Corrected sodium of 133 Urine ketones on urine acetone negative. No anion gap. Bicarbonate of 27. Serial osmolality ordered return as 301 Calorie controlled diet ordered. Accu-Chek QA CHS and 2 AM with correction scale insulin. Resume home basal insulin. Adjust home prandial insulin. Acute on chronic hypothyroidism TSH emergency department was 53.20. Free T4 of 0.50 low and free T3 of 1.7 low. Resume home levothyroxine. Acute on chronic depression Patient has not been taking her antidepressants. Resume fluoxetine. Case management consult. Lactic acidosis Sepsis ruled out as patient does not meet 2 SIRS criteria and qSOFA is 0. Trend lactic acid. Acute cystitis Urinalysis reviewed; abnormal. Review of CBC showed normal white count of 9.0. Hemoglobin mildly low at 11.8. Noted to have chronic bandemia. Trend CBC. Review of urine culture on 09/09/2020 showed Klebsiella pneumoniae that was ESBL negative and was pansensitive to multiple antibiotics including ceftriaxone. Urine culture on 09/09/2021 showed mixed gram-positive organism and presumptive C albicans. Urine culture on 07/21/2021 showed mixed gram-positive organism. Received ceftriaxone emergency department and continued. Follow urine and blood culture ordered at the Emergency Department. 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 Lisinopril. Continued trend CMP. Hypertension Blood pressure is stable Lisinopril continued. Trend blood pressure and adjust blood pressure medications. Acute on chronic elevated liver enzymes Trend CMP. DVT Prophylaxis: Subcutaneous Lovenox ordered. Charges/Coding Visit Charges Inpatient E&M: 43066 Init Hosp L3
[2022-02-09] MEDS: 0.9% Normal Saline 1,000 ML 999 ML IV (19:34)
[2022-02-09 19:39] VITALS: BP 117/68; PULSE 99; RESP 18; TEMP 36.6; O2SAT 97
[2022-02-09 19:55] LABS: Bedside Glucose > 500 mg/dL (74-106)
[2022-02-09 20:05] LABS: Free T3 1.7 pg/mL (2.18-3.98)
[2022-02-09 20:12] LABS: Osmolality, Serum 301 mOsm/KG (275-295)
[2022-02-09] MEDS: Insulin Lispro 100 UNIT/ML INSULN.PEN 10 UNIT SC (20:13)
[2022-02-09 20:27] VITALS: BP 117/68
[2022-02-09 20:44] VITALS: BMI 44.4
[2022-02-09 20:46] VITALS: BP 128/70; PULSE 97; RESP 18; TEMP 36.6; O2SAT 95
[2022-02-09] MEDS: 0.9% Normal Saline 1,000 ML 100 ML IV (21:02)
[2022-02-09 21:21] LABS: Bedside Glucose 460 mg/dL (74-106)
--- NOTE | 2022-02-09 21:37 | CM.ED ---
Referral Source: MD Archuleta Referral Reason: Depression MD indicated that patient presents to the ED with UTI but also voiced depression and not being on her psych medication for 1 month. stated patient denied any SI/HI. SW went to PCU and met with patient. Patient has worked at the [employer] for 12 years. 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 Patient said that last month a very close friend of cancer. Patient recalled being there when the home loaded her friend on the stretcher and took her friend away. Patient said that she stopped taking her psych medication and stated that sometimes she does that as it is a rebellion but patient admitted she feels better on her psych medication. Patient said that her mother at a young age and following the of her mom she had a struggle to identify her purpose. Patient said that her father and are also . Patient said that she lives alone and the loneliness has been getting to me. Patient has gone to counseling in the past at [facility] and said that she can call her counselor anytime to schedule an appointment. Patient reports Dr. Douglass prescribes her Prozac. Patient said that she feels that she gets into a rut. Patient said if I have a bad day....like I have a flat tire I feel like I won't take my medication. Patient said that with she is a [employer] and she recalls all the patient's she has worked with in the past who have . Patient said that her friends has really affected her and she is dealing with grief. Patient confirmed no SI/HI. ANTHONY educated patient on the [facility] Behavioral Health program. Patient was open to [facility] Behavioral Health staff calling her to review the program. ANTHONY explained that staff can assist with [place] paperwork. Emotional support provided. ANTHONY sent email to Gia Simons at [facility] making a referral for patient. Patient confirmed her phone number is [phone] and voiced she can be reached after 11am. Plan: Referral to [facility] Behavioral Health. Darcy GARZA
[2022-02-09 22:14] LABS: Glucose 466 mg/dL (74-106)
[2022-02-09 22:22] LABS: Reflex Lactate? Y
[2022-02-09 22:47] VITALS: PULSE 92
[2022-02-09] MEDS: Insulin Lispro 100 UNIT/ML INSULN.PEN 18 UNIT SC (23:11)
[2022-02-09] MEDS: Atorvastatin Calcium 20 MG Tablet PO (23:13)
[2022-02-09] MEDS: Insulin Glargine-YFGN 100 UNIT/ML Pen SC (23:13)
[2022-02-09] MEDS: Nystatin Powder 15gm Bottle 1 APPLIC TOPICAL (23:41)
[2022-02-10] VITALS (12 sets, daily range): BP systolic 98–124; BP diastolic 57–76; PULSE 76–93; RESP 16–20; TEMP 36.4–36.7; O2SAT 92–96
[2022-02-10] MEDS: Insulin Lispro 100 UNIT/ML INSULN.PEN SC ×5 (02:43→22:20)
[2022-02-10 03:05] LABS: Bedside Glucose 360 mg/dL (74-106)
[2022-02-10] MEDS: 0.9% Normal Saline 1,000 ML 100 ML IV ×2 (05:56→15:49)
[2022-02-10] MEDS: Levothyroxine 175 MCG Tablet 350 MCG PO (05:58)
[2022-02-10 06:35] LABS: Bedside Glucose 274 mg/dL (74-106)
[2022-02-10 08:05] LABS: Absolute Lymphocyte Count 2.41 X10^3/uL (0.83-4.51); Absolute Neutrophil Count 3.9 X10^3/uL (2.0-7.7); Basophil# 0.06 X10^3/uL; Basophil% 0.8 % (0-1); Eosinophil# 0.22 X10^3/uL; Eosinophils% 3.1 % (0-5); Hematocrit 39.6 % (37-47); Hemoglobin 11.9 g/dL (12.0-15.0); Lymphocyte # 2.41 X10^3/ul (0.83-4.51); Lymphocyte % 33.6 % (19-41); Mean Corp Hgb Conc 30.1 g/dL (32-36); Mean Corpuscular Volume 79.8 fL (81-99); Mean Platelet Vol. 9.6 fl (6.2-12.0); Monocyte# 0.47 X10^3/uL; Monocyte% 6.6 % (0-10); NRBC Flagged by Analyzer 0 % (0-5); Neutrophil # 3.89 X10^3/uL (2.7-7.7); Neutrophil % 54.2 % (47-70); Platelet Count 240 K/mm3 (150-450); RBC Distribution Width CV 16.6 % (11.6-14.6); RBC Distribution Width SD 46.4 fl (35.1-43.9); Red Blood Count 4.96 M/mm3 (4.2-5.4); White Blood Count 7.2 K/mm3 (4.4-11.0)
[2022-02-10 08:19] LABS: ALB/GLOB Ratio 0.5 RATIO (0.9-2.4); AST(SGOT) 56 U/L (15-37); Alanine Aminotransfer ALT/SGPT 49 U/L (13-56); Albumin, Serum 2.6 g/dL (3.2-5.0); Alkaline Phosphatase 164 U/L (45-117); Anion Gap 4 (5-15); BUN 11 mg/dL (7-18); BUN/Creat Ratio 16.9 RATIO (10-20); Calcium,Total 8.4 mg/dL (8.5-10.1); Chloride 102 mmol/L (98-107); Creatinine, Serum 0.65 mg/dL (0.55-1.02); EST Glomerular Filtration Rate 100 mL/min (>60); Est Glom Filt Rate - Afr Amer 121 mL/min (>60); Estimated Creatinine Clearance 73.79 ml/min; Globulin 5.2 g/dL (2.2-4.2); Glucose 254 mg/dL (74-106); Potassium 3.9 mmol/L (3.5-5.1); Protein, Total 7.8 g/dL (6.4-8.2); Sodium Level 133 mmol/L (136-145)
[2022-02-10] MEDS: Enoxaparin 40 MG/0.4 ML Syringe SC (09:16)
[2022-02-10] MEDS: Nystatin Powder 15gm Bottle 1 APPLIC TOPICAL ×2 (09:16→22:26)
[2022-02-10] MEDS: Lisinopril 2.5 MG Tablet PO (09:17)
[2022-02-10] MEDS: Fluoxetine HCl 40 MG CAPSULE PO (09:17)
[2022-02-10] MEDS: Ceftriaxone 1 GM/50 ML BAG IV (09:22)
--- NOTE | 2022-02-10 10:28 | CASEMGMT ---
ALFONZO WHATLEY Assessment: Face to Face with pt for initial transition planning/care coordination assessment. RN PHYLICIA introduced self and role at [facility], pt voices understanding and consents to assessment. Pt is A/O x4 and answers all questions appropriately at this time. Pt sitting up in chair in no distress. Care providers, pharmacy, and demographics verified/updated. Admitting Dx: hyperglycemia d/t DM, UTI PCP:Evonne Specialists:Pt states she has an upcoming appt with next month but has no other specialists. Preferred Pharmacy: [facility] Insurance: [employer] Prescription Benefit: yes LW/HPOA: Pt denies having a LW/DPOA and denies need for info regarding AD. LNOK: Tj Montejo, brother Living Arrangements: Pt lives alone in a ground level apt with 4 steps to enter with a rail. Pt reports she is I in ADL's and denies concerns at home. Transportation: Pt drives self and denies concerns with transportation. DME/HHC/SNF: Pt states she has a BGM but does not have strips. States she does not know the name of her meter. She states she will buy strips when she gets paid on Saturday. They are affordable to her at $20 per container of strips. She does not feel that she needs a rx for this. Offered to get a script for her to have a new meter but pt states she does not need a new one. Pt denies hx of HHC or SNF stays. Pt states no concerns with going home at time of dc. She has information on the Behavioral Health program. Pt states no further concerns/needs. CM to follow. Advised pt to ask CM if any further question/concerns/needs arise, voices understanding. Pt Goal: Home Plan: Home
[2022-02-10 12:10] LABS: Bedside Glucose 385 mg/dL (74-106)
--- NOTE | 2022-02-10 12:22 | PN.HOSP_ITS ---
Subjective Subjective Patient seen and examined. She said she felt much better today. She still did feel a bit weak. She denied any nausea, vomiting, fever, chills, abdominal pain, diarrhea or vomiting. Review of systems is otherwise negative. Objective Data Objective Data Vital Signs: Vital Signs Temp Pulse Resp BP Pulse Ox O2 Del Method 98.0 F 88 18 107/64 96 Room Air 02/10/22 08:45 02/10/22 12:10 02/10/22 08:45 02/10/22 08:45 02/10/22 08:45 02/10/22 09:13 Oxygen Delivery Method Room Air Weight: 235 lb 3.732 oz Body Mass Index (BMI) 44.4 Intake & Output: Intake and Output for Last 24 Hours 02/08/22 02/09/22 02/10/22 23:59 23:59 23:59 Intake Total 2049 1576.67 / 1576.67 Balance 2049 1576.67 / 1576.67 Lab / Micro Data Result Diagrams: 02/10/22 07:45 02/10/22 07:45 Labs: Laboratory Results - last 24 hr 02/09/22 18:15: WBC 9.0, RBC 4.94, Hgb 11.8 L, Hct 38.0, MCV 76.9 L, MCH 23.9 L, MCHC 31.1 L, RDW Std Deviation 44.8 H, RDW Coeff of [place] 16.3 H, Plt Count 271, MPV 10.3, Immature Gran % (Auto) 1.800 H, Neut % (Auto) 61.2, Lymph % (Auto) 29.7, [place] % (Auto) 4.9, Eos % (Auto) 1.7, Baso % (Auto) 0.7, Absolute Neuts (auto) 5.5, Absolute Lymphs (auto) 2.68, Nucleated RBC % 0 02/09/22 18:15: Sodium 125 L, Potassium 5.0, Chloride 91 L, Carbon Dioxide 27.0, Anion Gap 7, BUN 14, Creatinine 1.05 H, Estim Creat Clear Calc 45.68, Est GFR (MDRD) Af Amer 70, Est GFR (MDRD) Non-Af 58 L, BUN/Creatinine Ratio 13.3, Glucose 629 H*, Calcium 9.7, Total Bilirubin 0.50, AST 70 H, ALT 56, Alkaline Phosphatase 210 H, Total Protein 8.8 H, Albumin 2.9 L, Globulin 5.9 H, Albumin/Globulin Ratio 0.5 L, Lipase 96, TSH 53.20 H 02/09/22 18:15: Acetone Level NEGATIVE 02/09/22 18:15: Lactic Acid 2.3 H* 02/09/22 18:15: Urine Color Yellow, Urine Clarity Cloudy, Urine pH 6.0, Ur Spe cific [place] 1.010, Urine Protein 15 H, Urine Glucose (UA) 1000 H, Urine Ketones Negative, Urine Occult Blood 150 H, Urine Nitrite Positive H, Urine Bilirubin Negative, Urine Urobilinogen Normal, Ur Leukocyte Esterase 500 H, Urine RBC 25-50 SEEN, Urine WBC 50-100 SEEN, Ur Squamous Epith Cells 0-5 SEEN, Amorphous Sediment 1+ URATE, Urine Bacteria 2+, Urine Mucus 0 SEEN, Urine Pregna ncy Test Negative 02/09/22 18:15: Free T4 0.50 L, Free T3 pg/dL 1.7 L 02/09/22 18:15: Serum Osmolality 301 H 02/09/22 19:33: POC Glucose > 500 H* 02/09/22 20:59: POC Glucose 460 H* 02/09/22 21:35: Glucose 466 H* 02/09/22 22:40: Lactic Acid 1.0 02/10/22 02:41: POC Glucose 360 H 02/10/22 06:03: POC Glucose 274 H 02/10/22 07:45: WBC 7.2, RBC 4.96, Hgb 11.9 L, Hct 39.6, MCV 79.8 L, MCH 24.0 L, MCHC 30.1 L, RDW Std Deviation 46.4 H, RDW Coeff of [place] 16.6 H, Plt Count 240, MPV 9.6, Immature Gran % (Auto) 1.700 H, Neut % (Auto) 54.2, Lymph % (Auto) 33.6, [place] % (Auto) 6.6, Eos % (Auto) 3.1, Baso % (Auto) 0.8, Absolute Neuts (auto) 3.9, Absolute Lymphs (auto) 2.41, Nucleated RBC % 0 02/10/22 07:45: Sodium 133 L, Potassium 3.9, Chloride 102, Carbon Dioxide 27.0, Anion Gap 4 L, BUN 11, Creatinine 0.65, Estim Creat Clear Calc 73.79, Est GFR (MDRD) Af Amer 121, Est GFR (MDRD) Non-Af 100, BUN/Creatinine Ratio 16.9, Glucose 254 H, Calcium 8.4 L, Total Bilirubin 0.40, AST 56 H, ALT 49, Alkaline Phosphatase 164 H, Total Protein 7.8, Albumin 2.6 L, Globulin 5.2 H, Albumin/Globulin Ratio 0.5 L 02/10/22 11:47: POC Glucose 385 H Micro: Microbiology 02/09/22 19:25 Urine, Clean Catch Urine Culture - Preliminary Gram negative nanette Gram negative nanette#2 ABG Data ABG results: ABG 02/09/22 18:48 Specimen Type ART Sample Site L Radial pH 7.38 Bicarbonate Actual 26.6 H Total CO2 28 Base Excess 2 O2 Saturation 96 ABG pCO2 45.2 H ABG pO2 81 Ervin Test Positive O2 Delivery Device Room Air Physical Exam Const alert, oriented x3 and no apparent distress Orientation / Consciousness: lethargic HEENT head/scalp atraumatic and moist oral mucous membranes Head and Scalp: normocephalic Mouth: oral and palatal mucosa normal Eyes PERRL, EOMs intact bilaterally and conjunctivae normal Neck no lymphadenopathy, supple and no JVD Resp normal respiratory effort, no retractions, no use of accessory muscles and clear to auscultation bilaterally Cardio regular rate, regular rhythm, S1 normal heart sound, S2 normal heart sound and no murmurs GI normal to inspection, nondistended, normoactive bowel sounds, soft to palpation, non-tender and non-distended Extremity normal to inspection, full ROM and no clubbing, cyanosis or edema Neuro oriented x3, CN's II-XII intact bilaterally, moves all extremities and no focal motor deficits Sensorium / Orientation: awake and alert Motor Exam: strength 5/5 throughout Psych affect normal Assessment & Plan Assessment/Plan (1) Hyperglycemia due to diabetes mellitus: (2) Noncompliance with medication regimen: PLAN: Plan #HYperglycemia due to noncompliance with diabetes medication * admits to not taking her meds for about one month as she felt depressed * on lantus. ISS. accuchecks ACHS * #Hypothyroidism * very poorly controlled, again due to noncompliance * TSH is 53, and free T4 is low as well as free T3 * she admits to not taking her medications. * home synthroid dose of 350mcg daily resumed. * Will need close follow up with her PCP and will need to be referred to an wagon driver salesperson on outpatient basis. * #Depression; on fluoxetine #UTI: On IV ceftriaxone. Urine culture pending #Hypertension: on lisinopril. DVT prophylaxis: lovenox Charges/Coding Visit Charges Inpatient E&M: 73365 Subs Hosp L2
[2022-02-10 17:40] LABS: Bedside Glucose 334 mg/dL (74-106)
[2022-02-10] MEDS: Glucerna Shake 120 ML LIQUID PO ×2 (18:07→22:19)
--- NOTE | 2022-02-10 19:05 | CM.ED ---
SW met with patient briefly this morning. Patient is brighter and more reactive than when worker saw her on 02/09/22. Patient said that she is really thinking about it when asked about her thoughts regarding [facility]. Darcy GARZA
[2022-02-10] MEDS: 0.9% Saline Lock 10 ML Syringe IV (20:00)
[2022-02-10] MEDS: Insulin Glargine-YFGN 100 UNIT/ML Pen SC (22:21)
[2022-02-10] MEDS: Atorvastatin Calcium 20 MG Tablet PO (22:25)
[2022-02-11 00:01] LABS: Bedside Glucose 402 mg/dL (74-106)
[2022-02-11] MEDS: 0.9% Normal Saline 1,000 ML 100 ML IV (02:34)
[2022-02-11] MEDS: Insulin Lispro 100 UNIT/ML INSULN.PEN SC ×3 (02:37→11:39)
[2022-02-11 03:00] VITALS: PULSE 74
[2022-02-11 03:10] VITALS: BP 111/67; PULSE 75; RESP 16; TEMP 36.8; O2SAT 95
[2022-02-11 05:40] LABS: Absolute Lymphocyte Count 3.04 X10^3/uL (0.83-4.51); Absolute Neutrophil Count 3.9 X10^3/uL (2.0-7.7); Basophil# 0.06 X10^3/uL; Basophil% 0.8 % (0-1); Eosinophil# 0.19 X10^3/uL; Eosinophils% 2.4 % (0-5); Hematocrit 37.6 % (37-47); Hemoglobin 11.3 g/dL (12.0-15.0); Lymphocyte # 3.04 X10^3/ul (0.83-4.51); Lymphocyte % 39.1 % (19-41); Mean Corp Hgb Conc 30.1 g/dL (32-36); Mean Platelet Vol. 10.1 fl (6.2-12.0); Monocyte# 0.47 X10^3/uL; NRBC Flagged by Analyzer 0 % (0-5); Neutrophil # 3.85 X10^3/uL (2.7-7.7); Neutrophil % 49.5 % (47-70); Platelet Count 227 K/mm3 (150-450); RBC Distribution Width CV 16.3 % (11.6-14.6); White Blood Count 7.8 K/mm3 (4.4-11.0)
[2022-02-11 05:57] LABS: Anion Gap 5 (5-15); BUN 11 mg/dL (7-18); BUN/Creat Ratio 20.3 RATIO (10-20); Calcium,Total 8.6 mg/dL (8.5-10.1); Chloride 103 mmol/L (98-107); Creatinine, Serum 0.54 mg/dL (0.55-1.02); EST Glomerular Filtration Rate 124 mL/min (>60); Est Glom Filt Rate - Afr Amer 150 mL/min (>60); Estimated Creatinine Clearance 88.83 ml/min; Glucose 261 mg/dL (74-106); Sodium Level 135 mmol/L (136-145)
[2022-02-11 07:00] VITALS: PULSE 99
[2022-02-11] MEDS: Levothyroxine 175 MCG Tablet 350 MCG PO (07:00)
[2022-02-11 07:56] LABS: Bedside Glucose 279 mg/dL (74-106)
[2022-02-11 07:56] LABS: Bedside Glucose 357 mg/dL (74-106)
[2022-02-11 08:30] VITALS: O2SAT 95
[2022-02-11 09:20] VITALS: BP 113/60; PULSE 80; RESP 18; TEMP 36.6; O2SAT 96
[2022-02-11] MEDS: Lisinopril 2.5 MG Tablet PO (09:21)
[2022-02-11] MEDS: Nystatin Powder 15gm Bottle 1 APPLIC TOPICAL (09:22)
[2022-02-11] MEDS: Enoxaparin 40 MG/0.4 ML Syringe SC (09:22)
[2022-02-11] MEDS: Ceftriaxone 1 GM/50 ML BAG IV (09:22)
[2022-02-11] MEDS: Fluoxetine HCl 40 MG CAPSULE PO (09:22)
[2022-02-11 09:25] VITALS: O2SAT 96
[2022-02-11] MEDS: Glucerna Shake 120 ML LIQUID PO (09:26)
--- NOTE | 2022-02-11 10:44 | DS.PCM_ITS ---
Providers Date of Admission: 02/09/22 Primary Care Physician: Dr. Tj Douglass MD Reason For Visit: HYPERGLYCEMIA DUE TO DIABETES MELLITUS; UTI Diagnosis Discharge Diagnosis (1) Hyperglycemia due to diabetes mellitus: Status: Acute Code(s): E11.65 - Type 2 diabetes mellitus with hyperglycemia (2) Noncompliance with medication regimen: Status: Acute Code(s): Z91.14 - Patient's other noncompliance with medication regimen Plan #HYperglycemia due to noncompliance with diabetes medication * admits to not taking her meds for about one month as she felt depressed * on lantus. ISS. accuchecks ACHS * #Hypothyroidism * very poorly controlled, again due to noncompliance * TSH is 53, and free T4 is low as well as free T3 * she admits to not taking her medications. * home synthroid dose of 350mcg daily resumed. * Will need close follow up with her PCP and will need to be referred to an records section supervisor on outpatient basis. * #Depression; on fluoxetine #UTI: On IV ceftriaxone. Urine culture pending #Hypertension: on lisinopril. DVT prophylaxis: lovenox Medications at Discharge Home Medications albuterol sulfate 2.5 mg/3 mL (0.083 %) solution for nebulization 2.5 mg inhalation Q4H PRN PRN Sob &/Or Wheezing 04/11/18 lisinopril 2.5 mg tablet 2.5 mg PO DAILY BP 04/11/18 fluoxetine 40 mg capsule 40 mg PO DAILY DEPRESSION 02/12/19 atorvastatin 20 mg tablet 20 mg PO QHS CHOLESTEROL 10/06/19 levothyroxine 200 mcg tablet 350 mcg PO DAILY THYROID 10/06/19 acetaminophen 325 mg tablet 650 mg PO Q6H PRN PRN Pain Score 1-10/Temp > 100.7 F 10/09/19 insulin degludec 200 unit/mL (3 mL) subcutaneous pen 100 unit SQ DAILY dm 06/13/20 docusate sodium 100 mg capsule 100 mg PO DAILY PRN Constipation 09/07/20 metformin 500 mg tablet,extended release 24 hr 1,000 mg PO DAILY dm 03/29/21 insulin lispro 100 unit/mL subcutaneous pen 46 unit SC TIDAC dm 07/21/21 cefdinir 300 mg capsule 300 mg PO BID #10 caps 02/11/22 Hospital Course Operations None Procedures None Summary of Care Provided Minutes Spent on Discharge: 45 Hospital Course: Patient is a 56 y.o female with a PMH as outlined who was admitted via the ED on 02/09/2022 with a complaint of lethargy, sleepiness, weakness, frequency of urination, dry mouth and polydipsia. She said she felt she was depressed due to her best friend dying about a month prior to admission. She had stopped taking her meds also.On admission, she was found to be hyperglycemic, and also had markedly elevated TSH at 53.20. She didnt have an elevated anion gap. She was admitted and managed for hyperglycemia in a known diabetic due to noncompliance with her meds, as well as uncontrolled hypothyroidism due to noncompliance with her meds. She was also found to have UTI and started on IV ceftriaxone. Her home dose of insulin was resumed, and her synthroid was also resumed. Her hyperglycemia resolved, and she felt much better. She remained stable and denied any suicidal or homicidal ideation. She was discharged home on 02/11/2022, and she is to follow up with her PCP and records section supervisor in 1-2 weeks. Urine culture grew gram negative rods; speciation was pending at time of discharge. She was also discharged on PO cefdinir 300mg bid x 5 days. Patient seen and examined prior to discharge. She felt well and had no active complaints and had an uneventful night. Review of systems is otherwise negative. Labs and vitals reviewed. Home meds reviewed and reconciled. Physical Exam Const alert, oriented x3 and no apparent distress General Appearance: cooperative and comfortable Orientation / Consciousness: awake Exam Limitations: no limitations HEENT normocephalic, head/scalp atraumatic, hearing grossly normal bilaterally and moist oral mucous membranes Mouth: oral and palatal mucosa normal Eyes PERRL, EOMs intact bilaterally and conjunctivae normal Neck no lymphadenopathy, supple and no JVD Resp normal respiratory effort, no retractions, no use of accessory muscles and clear to auscultation bilaterally Cardio regular rate, regular rhythm, S1 normal heart sound, S2 normal heart sound and no murmurs GI normal to inspection, nondistended, normoactive bowel sounds, soft to palpation, non-tender and non-distended Extremity normal to inspection, full ROM and no clubbing, cyanosis or edema Skin no rashes or lesions noted Neuro oriented x3, CN's II-XII intact bilaterally, moves all extremities and no focal motor deficits Sensorium / Orientation: awake and alert Motor Exam: strength 5/5 throughout Psych affect normal Weight / BMI Weight Weight: 235 lb 3.732 oz Body Mass Index (BMI) 44.4 ABG / Lab / Microbiology Data Result Diagrams: 02/11/22 04:55 02/11/22 04:55 Laboratory: Laboratory Results - last 24 hr 02/10/22 11:47: POC Glucose 385 H 02/10/22 16:06: POC Glucose 334 H 02/10/22 22:18: POC Glucose 402 H 02/11/22 02:36: POC Glucose 357 H 02/11/22 04:55: WBC 7.8, RBC 4.70, Hgb 11.3 L, Hct 37.6, MCV 80.0 L, MCH 24.0 L, MCHC 30.1 L, RDW Std Deviation 46.0 H, RDW Coeff of [place] 16.3 H, Plt Count 227, MPV 10.1, Immature Gran % (Auto) 2.200 H, Neut % (Auto) 49.5, Lymph % (Auto) 39.1, [place] % (Auto) 6.0, Eos % (Auto) 2.4, Baso % (Auto) 0.8, Absolute Neuts (auto) 3.9, Absolute Lymphs (auto) 3.04, Nucleated RBC % 0 02/11/22 04:55: Sodium 135 L, Potassium 4.0, Chloride 103, Carbon Dioxide 27.0, Anion Gap 5, BUN 11, Creatinine 0.54 L, Estim Creat Clear Calc 88.83, Est GFR (MDRD) Af Amer 150, Est GFR (MDRD) Non-Af 124, BUN/Creatinine Ratio 20.3 H, Glucose 261 H, Calcium 8.6 02/11/22 07:02: POC Glucose 279 H Microbiology: Microbiology 02/09/22 19:25 Urine, Clean Catch Urine Culture - Preliminary Gram negative nanette D/C Instructions Discharge Diet: 1800 Calorie Control Diet Discharge Activity: Return to Normal Activity Weight Bearing Status: Weight bearing as tolerated Call your doctor if you observe: Fever of 101 or Higher, Shortness of breath, Dizziness, Swelling in the ankles, Chest pain and Increased palpitations (irregular heartbeat) Meaningful Use Info Meaningful Use Diagnoses (Choose all that apply): None applicable Discharge Plan Admission Admit Date/Time: 02/09/22 19:40 Primary Reason for Your Visit: hyperglycemia due to noncompliance Attending Provider: Augusta Lewis Primary Care Provider: Tj Douglass Consulting Providers: Irwin Sorenson Instructions Patient Instructions: Discharge Instructions for ..., Do You Have Diabetes?, ED Diabetic Hyperglycemia Discharge Orders/Prescriptions Prescriptions: New cefdinir 300 mg capsule 300 mg PO BID Qty: 10 0RF Continued albuterol sulfate 2.5 mg /3 mL (0.083 %) solution for nebulization 2.5 mg INHALATION Q4H PRN PRN (Reason: Sob &/Or Wheezing) lisinopril 2.5 mg tablet 2.5 mg PO DAILY fluoxetine 40 MG capsule 40 mg PO DAILY Label Comments: TAKE 1 CAPSULE BY MOUTH EVERY DAY atorvastatin 20 MG tablet 20 mg PO QHS levothyroxine 200 MCG tablet 350 mcg PO DAILY acetaminophen 325 MG tablet 650 mg PO Q6H PRN PRN (Reason: Pain Score 1-10/Temp > 100.7 F) 0RF insulin degludec 200 UNIT/ML insulin pen 100 unit SQ DAILY Label Comments: INJECT 110 UNITS SUBCUTANEOUSLY EVERY MORNING. docusate sodium 100 MG capsule 100 mg PO DAILY PRN (Reason: Constipation) metformin 500 mg tablet extended release 24 hr 1,000 mg PO DAILY Label Comments: TAKE 2 TABLETS BY MOUTH TWICE A DAY insulin lispro 100 UNIT/ML insulin pen 46 unit SC TIDAC Protocol: 5. Sliding Scale Insulin High Dosing Condition: 150-209 mg/dl = 3 units Condition: 210-259 mg/dl = 6 units Condition: 260-324 mg/dl = 9 units Condition: 325-374 mg/dl = 12 units Condition: 375-409 mg/dl = 14 units Condition: 410-449 mg/dl = 16 units Condition: Greater than 449 call physician Protocol Text: - Use for Total Daily Dose of Insulin 81-120 units - Very insulin resistant or septic patients HIGH DOSING ALGORITHM Rx Instructions: 46 base plus sliding scale Referrals / Follow Up: Tj Douglass MD [Primary Care Provider] - Within 2 Weeks Haile Cervantes MD [STAFF PHYSICIAN] - Within 2 Weeks (see to establish endocrinology care) Disposition Disposition (needs filled in before D/C Order can be placed): Home, Self Care Charges/Coding Visit Charges Inpatient E&M: 54248 Disch Hosp
[2022-02-11 12:00] LABS: Bedside Glucose 350 mg/dL (74-106)
[2022-02-13 15:30] LABS: Bedside Glucose > 500 mg/dL (74-106)
== END 2022-02-11 13:30 | disposition home or self-care (01) | DRG 637 ==
LOC: ED 18:53 → PCU 19:53
PROVIDERS: Nurse Practitioner; Admitting Provider Hospitalist; Emergency Provider Emergency Medicine; PCP Family Medicine; Visit Provider Student in an Organized Health Care Education/Training Program
DX: E11.65 Type 2 diabetes mellitus with hyperglycemia (principal); E11.10 Type 2 diabetes mellitus with ketoacidosis without coma; N30.00 Acute cystitis without hematuria; Z68.41 Body mass index [BMI] 40.0-44.9, adult; D63.1 Anemia in chronic kidney disease; E11.21 Type 2 diabetes mellitus with diabetic nephropathy; E03.9 Hypothyroidism, unspecified; B96.20 Unspecified Escherichia coli [E. coli] as the cause of diseases classified elsewhere; E11.22 Type 2 diabetes mellitus with diabetic chronic kidney disease; E66.01 Morbid (severe) obesity due to excess calories; N18.31 Chronic kidney disease, stage 3a; Z79.4 Long term (current) use of insulin; E78.5 Hyperlipidemia, unspecified; I12.9 Hypertensive chronic kidney disease with stage 1 through stage 4 chronic kidney disease, or unspecified chronic kidney disease; M19.90 Unspecified osteoarthritis, unspecified site; F32.A Depression, unspecified; R94.5 Abnormal results of liver function studies; Z91.14 Patient's other noncompliance with medication regimen; Z79.84 Long term (current) use of oral hypoglycemic drugs; Z79.899 Other long term (current) drug therapy; Z87.891 Personal history of nicotine dependence
CPT/HCPCS: 36415; 36600; 80048; 80053; 81001; 81025; 82009; 82803; 82947; 82962; 83605; 83690; 83930; 84439; 84443; 84481; 85025; 87040; 87077; 87086; 87088; 87186; 97802; 99285; J7030; A4216

== ENCOUNTER 2022-06-08 21:15 | Emergency (ER) | payer OTHER, SELFPAY ==
[2022-06-08 21:16] VITALS: BP 137/64; PULSE 74; RESP 20; TEMP 36.2; O2SAT 96; BMI 45.3
--- NOTE | 2022-06-08 21:51 | ED.VIS.DENTA ---
HPI History of Present Illness Chief Complaint: Dental Detail of Chief Complaint: Dental pain Informant: patient Narrative Narrative: Patient presents with dental pain that she has had off and on for about a year. Patient has been seen by dentist at the [facility] and they referred her to [facility] and she has an appointment there in June. Patient's had worsening pain since yesterday to the right lower molars. Patient states that one of her molars is very loose and broken. She denies fever or chills or sweats. Prior similar symptoms: Yes [facility] Medical History Anemia Arthritis Back pain Bloody stool Diabetes History of frequent headaches Hyperlipidemia Hypertension Hypothyroid Morbid obesity Thyroid disease Home Medications albuterol sulfate 2.5 mg/3 mL (0.083 %) solution for nebulization 2.5 mg inhalation Q4H PRN PRN Sob &/Or Wheezing 04/11/18 [History Last Taken Unknown] lisinopril 2.5 mg tablet 2.5 mg PO DAILY BP 04/11/18 [History Last Taken 10/06/19] fluoxetine 40 mg capsule 40 mg PO DAILY DEPRESSION 02/12/19 [History Last Taken 10/06/19] atorvastatin 20 mg tablet 20 mg PO QHS CHOLESTEROL 10/06/19 [History Last Taken 10/05/19] levothyroxine 200 mcg tablet 350 mcg PO DAILY THYROID 10/06/19 [History Last Taken 10/06/19] acetaminophen 325 mg tablet 650 mg PO Q6H PRN PRN Pain Score 1-10/Temp > 100.7 F 10/09/19 [Rx Last Taken Unknown] insulin degludec 200 unit/mL (3 mL) subcutaneous pen 100 unit SQ DAILY dm 06/13/20 [History Last Taken Unknown] docusate sodium 100 mg capsule 100 mg PO DAILY PRN Constipation 09/07/20 [History Last Taken Unknown] metformin 500 mg tablet,extended release 24 hr 1,000 mg PO DAILY dm 03/29/21 [History Last Taken Unknown] insulin lispro 100 unit/mL subcutaneous pen 46 unit SC TIDAC dm 07/21/21 [History Last Taken Unknown] cefdinir 300 mg capsule 300 mg PO BID #10 caps 02/11/22 [Rx Last Taken Unknown] clindamycin HCl 300 mg capsule (Cleocin HCl) 300 mg PO Q6H #40 CAPSULES 06/08/22 [Rx Last Taken Unknown] hydrocodone-acetaminophen 5-325mg 5mg-325mg 1 tab PO Q4H PRN PRN Pain 2 days #15 TABLETS 06/08/22 [Rx Last Taken Unknown] Allergy/AdvReac Type Severity Reaction Status Date / Time codeine Allergy Angioedema Verified 06/08/22 21:25 nitrofurantoin Allergy edema Verified 06/08/22 21:25 Penicillins Allergy Rash Verified 06/08/22 21:25 Sulfa (Sulfonamide Allergy Rash Verified 06/08/22 21:25 Antibiotics) sulfamethoxazole [Bactrim] Allergy Unknown Verified 06/08/22 21:25 trimethoprim [Bactrim] Allergy Unknown Verified 06/08/22 21:25 Family History Other Cancer Surgical History Hx of cholecystectomy Social History household members: none Smoking Status: Former smoker alcohol intake: current details: Patient states she does not drink however nurse documents and prior note do substance use type: does not use ROS ROS ED Review of Systems ROS Unobtainable: other Constitutional Constitutional ED: Reports lethargy; Denies chills, fever(s), sweats or weight loss Eyes Eyes: Denies blurry vision, change in vision or diplopia ENT ENT ED: Reports other Details: Dental pain ; Denies rhinorrhea or sore throat Cardiovascular Cardiovascular: Denies chest pain, orthopnea or racing heartbeat Respiratory/Chest Respiratory/Chest: Denies cough, dyspnea, dyspnea on exertion, orthopnea or sputum Gastrointestinal Gastrointestinal: Denies abdominal pain, diarrhea, nausea or vomiting Genitourinary Genitourinary ED: Denies dysuria, hematuria or urinary frequency Musculoskeletal Musculoskeletal: Denies arthralgias, back pain, myalgias or neck pain Integumentary Denies abscess, Abrasions or rash Neurologic Neurologic: Denies headache(s) or weakness Psychiatric Psychiatric: Denies anxiety, depression or suicidal thoughts Endocrine Endocrinology: Denies polydipsia, polyphagia or polyuria Hematologic/Lymphatic Hematologic/Lymphatic: Denies easy bleeding, easy bruising or lymphadenopathy Allergic/Immunologic Allergic/Immunologic ED: Denies mouth swelling, tongue swelling or urticaria EXAM Physical Exam Const Vital Signs: 06/08/22 21:16 Temperature 97.2 F L Temperature Source Temporal Pulse Rate 74 Respiratory Rate 20 H Blood Pressure 137/64 H Blood Pressure Mean 88 Pulse Ox 96 Oxygen Delivery Method Room Air Positive well nourished and well developed General Appearance ED: well developed and NAD HEENT Reports TM's clear and moist mucous membranes HEENT Narrative: Dentition-patient has a broken and carried tooth #31 that is tender to palpation. No gingival erythema or abscess noted. Patient also with tenderness over the tooth #32. No facial erythema or cellulitis. No trismus on exam. normocephalic and atraumatic; Negative for trauma or tenderness Tympanic Membrane ED: Yes TM's clear Eyes PERRL and EOMs intact bilaterally General Eye ED: Negative for pale conjunctiva or scleral icterus Neck no lymphadenopathy, supple and no JVD General: Negative for tenderness Chest Wall inspection of chest normal and palpation of chest normal Chest: Negative for tenderness Resp normal respiratory effort and clear to auscultation bilaterally Effort and Inspection: Negative for respiratory distress or pain with movement Auscultation: Negative for rhonchi, wheezes or diminished lung sounds Cardio regular rate, regular rhythm, S1 normal heart sound, S2 normal heart sound and no murmurs Peripheral Pulses: pulses 2+ throughout GI normal to inspection, nondistended, normoactive bowel sounds, soft to palpation, non-tender, non-distended and no masses Back/Spine no CVA tenderness and no thoracic nor lumbar tenderness Extremity normal to inspection General Extremety ED: Negative for edema General Extremity: Negative for edema Neuro oriented x3, CN's II-XII intact bilaterally, no sensory deficits noted and gait normal Sensorium / Orientation: awake, alert, oriented to person, oriented to place and oriented to time Motor Exam: strength 5/5 throughout and strength abnormal Psych mental status grossly normal Skin no rashes or lesions noted and no wounds MDM MDM MDM Narrative Medical decision making narrative: Patient will be given a list of dentists in the area to see if she can get in sooner than June to have her dentition addressed. Patient will be given a prescription for clindamycin and [place] for pain. Patient advised to return if fever, facial redness or swelling, or condition worsen anyway. Discharge Plan Triage Chief Complaint: Dental ED Provider: Darell Mendoza Dx/Rx/DC Orders Clinical Impression: Pain, dental, Dental caries Instructions: ED Dental Pain, ED Dental Cavity Prescriptions: New clindamycin HCl [Cleocin HCl] 300 mg capsule 300 mg PO Q6H Qty: 40 0RF hydrocodone-acetaminophen [hydrocodone-acetaminophen] 5-325 mg tablet 1 tab PO Q4H PRN PRN (Reason: Pain) 2 Days Qty: 15 0RF No Action albuterol sulfate 2.5 mg /3 mL (0.083 %) solution for nebulization 2.5 mg INHALATION Q4H PRN PRN (Reason: Sob &/Or Wheezing) lisinopril 2.5 mg tablet 2.5 mg PO DAILY fluoxetine 40 MG capsule 40 mg PO DAILY Label Comments: TAKE 1 CAPSULE BY MOUTH EVERY DAY atorvastatin 20 MG tablet 20 mg PO QHS levothyroxine 200 MCG tablet 350 mcg PO DAILY acetaminophen 325 MG tablet 650 mg PO Q6H PRN PRN (Reason: Pain Score 1-10/Temp > 100.7 F) 0RF insulin degludec 200 UNIT/ML insulin pen 100 unit SQ DAILY Label Comments: INJECT 110 UNITS SUBCUTANEOUSLY EVERY MORNING. docusate sodium 100 MG capsule 100 mg PO DAILY PRN (Reason: Constipation) metformin 500 mg tablet extended release 24 hr 1,000 mg PO DAILY Label Comments: TAKE 2 TABLETS BY MOUTH TWICE A DAY insulin lispro 100 UNIT/ML insulin pen 46 unit SC TIDAC Protocol: 5. Sliding Scale Insulin High Dosing Condition: 150-209 mg/dl = 3 units Condition: 210-259 mg/dl = 6 units Condition: 260-324 mg/dl = 9 units Condition: 325-374 mg/dl = 12 units Condition: 375-409 mg/dl = 14 units Condition: 410-449 mg/dl = 16 units Condition: Greater than 449 call physician Protocol Text: - Use for Total Daily Dose of Insulin 81-120 units - Very insulin resistant or septic patients HIGH DOSING ALGORITHM Rx Instructions: 46 base plus sliding scale cefdinir 300 mg capsule 300 mg PO BID Qty: 10 0RF Primary Care Provider: Tj Douglass Referrals: Tj Douglass MD [Primary Care Provider] - Activity Restrictions/Additional Instructions: See dentist at the earliest possible time Disposition Disposition: Home, Self Care
[2022-06-08 21:53] VITALS: RESP 18
[2022-06-08] MEDS: Clindamycin HCl 150 MG Capsule 300 MG PO (22:01)
== END 2022-06-08 22:45 | disposition home or self-care (01) ==
PROVIDERS: Emergency Provider Emergency Medicine; PCP Family Medicine; Visit Provider Emergency Medicine
DX: K08.89 Other specified disorders of teeth and supporting structures (principal); E11.9 Type 2 diabetes mellitus without complications; E78.5 Hyperlipidemia, unspecified; I10 Essential (primary) hypertension; Z87.891 Personal history of nicotine dependence
CPT/HCPCS: 99282

== ENCOUNTER 2022-06-17 12:30 | Emergency (ER) | payer OTHER, SELFPAY ==
[2022-06-17 12:33] VITALS: BP 145/75; PULSE 111; RESP 15; TEMP 36; O2SAT 97; BMI 45.7
[2022-06-17 13:04] VITALS: PULSE 102; O2SAT 94
--- NOTE | 2022-06-17 13:14 | RAD_ITS ---
STUDY: X-RAY - RIGHT HAND REASON FOR EXAM: Female, 56 years old. previous injury at work, redness and swelling between thumb and 2nd digit TECHNIQUE: 3 view(s) of the hand. COMPARISON: Right wrist x-ray dated February 12, 2019 FINDINGS: Normal radiocarpal articulation. Normal distal radioulnar joint. Normal visualized carpal bones. Normal carpal articulations Normal carpometacarpal articulation of the thumb. Normal second through fifth carpometacarpal joints. Normal metacarpi. Normal metacarpophalangeal joint of the thumb. Normal interphalangeal joint of the thumb. Normal proximal and distal phalanges of the thumb. Normal metacarpophalangeal joints of the second through fifth fingers. There is diffuse articular joint space narrowing of the proximal and distal interphalangeal joints of the second through fifth fingers, but without erosive changes or periarticular soft tissue swelling. Normal phalanges of the second through fifth fingers. Small calcifications are present in the subcutaneous tissues near the ulnar styloid. No visualized subcutaneous air. No radiopaque foreign body is present. There is no evidence of a fracture. RAD/Hand Min 3 Views IMPRESSION: 1. No acute process of the right hand Electronically Signed: Sylvester Foy MD at 14:06 EST Reading Location ID and State: [address] [place] [address] , Service support ,
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
== END 2022-06-17 14:44 | disposition home or self-care (01) ==
PROVIDERS: Emergency Provider Emergency Medicine; PCP Family Medicine; Visit Provider Emergency Medicine
DX: S60.221A Contusion of right hand, initial encounter (principal); E66.01 Morbid (severe) obesity due to excess calories; E11.9 Type 2 diabetes mellitus without complications; Z79.4 Long term (current) use of insulin; W50.1XXA Accidental kick by another person, initial encounter; Y93.F9 Activity, other caregiving; Y99.0 Civilian activity done for income or pay; I10 Essential (primary) hypertension; E78.5 Hyperlipidemia, unspecified; E03.9 Hypothyroidism, unspecified; Z79.890 Hormone replacement therapy; Z79.899 Other long term (current) drug therapy; Z87.891 Personal history of nicotine dependence
CPT/HCPCS: 73130; 99282

== ENCOUNTER 2022-08-12 13:15 | Emergency (ER) | payer OTHER, SELFPAY ==
[2022-08-12 13:18] VITALS: BP 129/70; PULSE 92; RESP 18; TEMP 35.8; O2SAT 98; BMI 46.3
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
[2022-08-12] MEDS: Ondansetron ODT 4 MG Tablet PO (15:04)
--- NOTE | 2022-08-12 15:36 | ED.RN ---
GIVEN PHONE AND CALLING BROTHER TO ARRANGE A RIDE. [facility] AT BEDSIDE FOR STATEMENT
== END 2022-08-12 16:01 | disposition home or self-care (01) ==
PROVIDERS: Emergency Provider Emergency Medicine; PCP Family Medicine; Visit Provider Emergency Medicine
DX: S16.1XXA Strain of muscle, fascia and tendon at neck level, initial encounter (principal); S30.1XXA Contusion of abdominal wall, initial encounter; S80.02XA Contusion of left knee, initial encounter; V48.5XXA Car driver injured in noncollision transport accident in traffic accident, initial encounter; Z87.891 Personal history of nicotine dependence
CPT/HCPCS: 70450; 71045; 72125; 73560; 74176; 99284

== ENCOUNTER → 2022-08-31 | Outpatient (CLI) | payer OTHER, SELFPAY ==
[2022-08-31 13:59] VITALS: BP 122/70; PULSE 73; RESP 16; TEMP 35.5; O2SAT 98; BMI 27.3
[2022-08-31] MEDS: 0.9% NaCl Peripheral Flush Adult/Peds IV (14:29)
[2022-08-31 15:06] VITALS: BP 112/67; PULSE 75; RESP 16; TEMP 36.1; O2SAT 94
== END | disposition home or self-care (01) ==
LOC: MEDOUTP 13:49
PROVIDERS: PCP Family Medicine; Referring Provider Nurse Practitioner Family; Visit Provider Nurse Practitioner Family
DX: N39.0 Urinary tract infection, site not specified (principal); Z88.1 Allergy status to other antibiotic agents
CPT/HCPCS: 96365; J7050; A4216

== ENCOUNTER 2022-09-21 14:07 | Emergency (ER) | payer OTHER, SELFPAY ==
[2022-09-21] VITALS (7 sets, daily range): BP systolic 116–145; BP diastolic 68–79; PULSE 67–84; RESP 18–23; TEMP 36.3; O2SAT 94–99; BMI 47.3
[2022-09-21 14:55] LABS: Bedside Glucose 235 mg/dL (74-106)
--- NOTE | 2022-09-21 15:15 | EKG12_ITS ---
Test Reason : SOB Blood Pressure : / mmHG Vent. Rate : 065 BPM Atrial Rate : 065 BPM P-R Int : 126 ms QRS Dur : 120 ms QT Int : 450 ms P-R-T Axes : 031 -61 000 degrees QTc Int : 468 ms Normal sinus rhythm Possible Pulmonary disease pattern Right bundle branch block Left anterior fascicular block Bifascicular block Minimal voltage criteria for LVH, may be normal variant ( R in aVL ) Abnormal ECG Confirmed by GRIS BRODERICK, MICH ([id number]), web content editor BRITTANY NGUYEN ([id number]) on 09/24/2022 1:52:07 PM Referred By: Confirmed By:MICH LANDRY MD
--- NOTE | 2022-09-21 15:16 | EX.ED.DYSGE1 ---
HPI History of Present Illness Chief Complaint: Edema Narrative Narrative: 56-year-old female with cough, congestion, generalized weakness, dyspnea with onset 3 to 4 days ago. She states she has 1 sick contact who has a sore throat. Patient has not been tested for anything. Patient states her friend is doing fine. States that she had norovirus last week. Patient is also she has not had a fever but she does feel rundown. She does feel short of breath with exertion. She also complains that she has a 6 pound weight gain and she feels like her arms and legs are swollen. She was seen at the urgent care and referred to the ER. No history of CHF. No orthopnea. Patient states he does have a history of diabetes in the past. She also gets UTIs from time to time. She does not feel that she has dysuria or hematuria. She does not have abdominal pain [facility] Medical History Anemia Arthritis Back pain Bloody stool Depression Diabetes History of frequent headaches Hyperlipidemia Hypertension Hypothyroid Hypothyroidism Morbid obesity Noncompliance with medication regimen Thyroid disease Home Medications albuterol sulfate 2.5 mg/3 mL (0.083 %) solution for nebulization 2.5 mg inhalation Q4H PRN PRN Sob &/Or Wheezing 04/11/18 [History Last Taken Unknown] lisinopril 2.5 mg tablet 2.5 mg PO DAILY BP 04/11/18 [History Last Taken 10/06/19] fluoxetine 40 mg capsule 40 mg PO DAILY DEPRESSION 02/12/19 [History Last Taken 10/06/19] atorvastatin 20 mg tablet 20 mg PO QHS CHOLESTEROL 10/06/19 [History Last Taken 10/05/19] levothyroxine 200 mcg tablet 350 mcg PO DAILY THYROID 10/06/19 [History Last Taken 10/06/19] acetaminophen 325 mg tablet 650 mg PO Q6H PRN PRN Pain Score 1-10/Temp > 100.7 F 10/09/19 [Rx Last Taken Unknown] insulin degludec 200 unit/mL (3 mL) subcutaneous pen 100 unit SQ DAILY dm 06/13/20 [History Last Taken Unknown] docusate sodium 100 mg capsule 100 mg PO DAILY PRN Constipation 09/07/20 [History Last Taken Unknown] metformin 500 mg tablet,extended release 24 hr 1,000 mg PO DAILY dm 03/29/21 [History Last Taken Unknown] insulin lispro 100 unit/mL subcutaneous pen 46 unit SC TIDAC dm 07/21/21 [History Last Taken Unknown] cefdinir 300 mg capsule 300 mg PO BID #10 caps 02/11/22 [Rx Last Taken Unknown] clindamycin HCl 300 mg capsule (Cleocin HCl) 300 mg PO Q6H #40 CAPSULES 06/08/22 [Rx Last Taken Unknown] hydrocodone-acetaminophen 5-325mg 5mg-325mg 1 tab PO Q4H PRN PRN Pain 2 days #15 TABLETS 06/08/22 [Rx Last Taken Unknown] ondansetron 4 mg disintegrating tablet 4 mg PO Q8H PRN nausea and vomiting #10 tabs 08/12/22 [Rx Last Taken Unknown] Allergy/AdvReac Type Severity Reaction Status Date / Time codeine Allergy Angioedema Verified 09/21/22 14:18 nitrofurantoin Allergy edema Verified 09/21/22 14:18 Penicillins Allergy Rash Verified 09/21/22 14:18 Sulfa (Sulfonamide Allergy Rash Verified 09/21/22 14:18 Antibiotics) sulfamethoxazole [Bactrim] Allergy Unknown Verified 09/21/22 14:18 trimethoprim [Bactrim] Allergy Unknown Verified 09/21/22 14:18 Family History Other Cancer Surgical History Hx of cholecystectomy Social History household members: none Smoking Status: Former smoker alcohol intake: current details: Patient states she does not drink however nurse documents and prior note do substance use type: does not use ROS ROS ED Constitutional Constitutional ED: Reports other Details: 5 pound weight gain ; Denies chills or subjective Eyes Eyes: Denies blurry vision or change in vision Cardiovascular Cardiovascular: Denies palpitations or racing heartbeat Respiratory/Chest Respiratory/Chest: Reports cough and dyspnea; Denies sputum Gastrointestinal Gastrointestinal: Denies abdominal pain, nausea or vomiting Genitourinary Genitourinary ED: Denies dysuria or hematuria Musculoskeletal Musculoskeletal: Denies arthralgias or back pain EXAM Physical Exam Const Vital Signs: 09/21/22 14:10 09/21/22 14:18 09/21/22 14:19 Temperature 97.4 F L Temperature Source Temporal Pulse Rate 72 71 Respiratory Rate 18 23 H Respiratory Effort Normal Short of Breath Respiratory Depth Respiratory Pattern Normal Blood Pressure 145/79 H 144/68 H Blood Pressure Mean 101 93 Pulse Ox 99 97 Oxygen Delivery Method Room Air Room Air 09/21/22 14:19 09/21/22 15:22 09/21/22 16:04 Temperature Temperature Source Pulse Rate 67 Respiratory Rate 18 Respiratory Effort Short of Breath Labored Respiratory Depth Shallow Respiratory Pattern Blood Pressure 116/71 Blood Pressure Mean 86 Pulse Ox 97 95 Oxygen Delivery Method Room Air Room Air Room Air 09/21/22 17:52 Temperature Temperature Source Pulse Rate 67 Respiratory Rate 21 H Respiratory Effort Respiratory Depth Respiratory Pattern Blood Pressure 121/73 H Blood Pressure Mean 89 Pulse Ox 94 Oxygen Delivery Method Room Air Positive well nourished General Appearance ED: NAD; Negative for pallor HEENT Reports normocephalic, head/scalp atraumatic and moist mucous membranes Eyes PERRL and EOMs intact bilaterally Resp normal respiratory effort and clear to auscultation bilaterally Auscultation: Negative for rales, rhonchi or wheezes Cardio regular rate and regular rhythm Narrative: Deferred Extremity normal to inspection General Extremety ED: Negative for edema or tenderness General Extremity: Negative for edema Neuro oriented x3 and CN's II-XII intact bilaterally Sensorium / Orientation: alert Motor Exam: strength 5/5 throughout Psych mental status grossly normal Attitude: No agitated Skin no rashes or lesions noted and no wounds General Skin Exam: Negative for jaundice or pallor MDM MDM MDM Narrative Medical decision making narrative: Patient presenting with shortness of breath, generalized fatigue she reports he has 1 sick contact and had norovirus last week. Her vital signs are stable and she is afebrile. She is nontoxic-appearing. She was sent by the urgent care because she is stating she has lower extremity edema and shortness of breath and I believe they were concerned for CHF. She does not have history of this. She not having chest pain. She does state that she is a little short of breath. She has not had a fever but does feel rundown like she has some kind of viral illness. She also has concerned she could have a UTI. She also has a history of diabetes and hyperglycemia differential diagnosis at this point CHF, pneumonia, hyperglycemia, bronchitis, UTI, viral etiology. CBC for white blood cell count, hemoglobin, differential. BMP for renal function, electrolytes, glucose, anion gap. BNP and high-sensitivity troponin to assess for cardiac standpoint. EKG will be obtained as well as a chest x-ray due to dyspnea. Urinalysis to assess for UTI. EKG on my interpretation shows a normal sinus rhythm with a ventricular rate of 65 bpm with bifascicular block. NM interval 126 ms, QRS duration 120 ms, QTc 460 ms. Chest x-ray on my interpretation shows no acute process. Radiology interpretation agrees. CBC shows normal white blood cell count 8.1. Hemoglobin 10.8 which is slightly lower than her previous from last year. Platelets are normal. Renal function is normal. And although her hemoglobin is slightly lower than last year her BUN is not elevated to suggest GI bleed. Glucose is elevated at 245 without anion gap. High-sensitivity troponin is 52. BNP 41.3 and therefore normal. Patient did have a delay in care today because it took her a very long time to give a urine sample but ultimately this appears to be normal and is quite contaminated. She is not having urinary symptoms so I do feel she is stable for discharge home. More than likely this is something viral. She was counseled that her glucose is a little bit elevated today. She was also counseled on her anemia and recommended follow-up with her PCP. Impression: 1. Generalized weakness 2. Dyspnea on exertion 3. Anemia Lab Data Attestation: I reviewed the patient's lab results. Labs: Laboratory Results - last 24 hr 09/21/22 09/21/22 09/21/22 14:36 15:35 15:35 WBC 8.1 RBC 4.40 Hgb 10.8 L Hct 35.6 L MCV 80.9 L MCH 24.5 L MCHC 30.3 L RDW Std Deviation 42.4 RDW Coeff of [place] 14.6 Plt Count 235 MPV 9.8 Immature Gran % (Auto) 1.600 H Neut % (Auto) 58.1 Lymph % (Auto) 31.8 [place] % (Auto) 5.2 Eos % (Auto) 2.7 Baso % (Auto) 0.6 Absolute Neuts (auto) 4.7 Absolute Lymphs (auto) 2.57 Nucleated RBC % 0 Sodium 138 Potassium 4.0 Chloride 101 Carbon Dioxide 32.0 Anion Gap 5 BUN 14 Creatinine 0.67 Estim Creat Clear Calc 71.59 Est GFR (MDRD) Af Amer 118 Est GFR (MDRD) Non-Af 97 BUN/Creatinine Ratio 21.0 H Glucose 245 H Calcium 8.8 Troponin I High Sens 52 B-Natriuretic Peptide Urine Color Urine Clarity Urine pH Ur Specific [place] Urine Protein Urine Glucose (UA) Urine Ketones Urine Occult Blood Urine Nitrite Urine Bilirubin Urine Urobilinogen Ur Leukocyte Esterase Urine RBC Urine WBC Ur Squamous Epith Cells Urine Bacteria Urine Mucus POC Glucose 235 H 09/21/22 09/21/22 15:35 16:37 WBC RBC Hgb Hct MCV MCH MCHC RDW Std Deviation RDW Coeff of [place] Plt Count MPV Immature Gran % (Auto) Neut % (Auto) Lymph % (Auto) [place] % (Auto) Eos % (Auto) Baso % (Auto) Absolute Neuts (auto) Absolute Lymphs (auto) Nucleated RBC % Sodium Potassium Chloride Carbon Dioxide Anion Gap BUN Creatinine Estim Creat Clear Calc Est GFR (MDRD) Af Amer Est GFR (MDRD) Non-Af BUN/Creatinine Ratio Glucose Calcium Troponin I High Sens B-Natriuretic Peptide 41.3 Urine Color Yellow Urine Clarity Cloudy Urine pH 5.0 Ur Specific [place] 1.020 Urine Protein 30 H Urine Glucose (UA) Normal Urine Ketones Negative Urine Occult Blood 250 H Urine Nitrite Negative Urine Bilirubin Negative Urine Urobilinogen Normal Ur Leukocyte Esterase 500 H Urine RBC 5-10 SEEN Urine WBC 25-50 SEEN Ur Squamous Epith Cells 10-25 SEEN Urine Bacteria 0 SEEN Urine Mucus 1+ POC Glucose Radiography Diagnostic Testing: Clinical Impression(s) from Imaging Studies Chest X-Ray 09/21/22 15:50 IMPRESSION: Stable interstitial scarring with trace bibasilar airspace disease which may represent minimal atelectasis. There is no focal consolidation or effusion. Electronically Signed: Dameon Lopez MD at 16:49 EST , Discharge Plan Triage Chief Complaint: Edema Other Complaint: Shortness of Breath ED Provider: Hiram Hernandez Dx/Rx/DC Orders Instructions: ED Dyspnea, ED Viral Syndrome (Adult), ED Weakness (Uncertain Cause), ED Anemia, Unspecified (Child) Prescriptions: No Action albuterol sulfate 2.5 mg /3 mL (0.083 %) solution for nebulization 2.5 mg INHALATION Q4H PRN PRN (Reason: Sob &/Or Wheezing) lisinopril 2.5 mg tablet 2.5 mg PO DAILY fluoxetine 40 MG capsule 40 mg PO DAILY Label Comments: TAKE 1 CAPSULE BY MOUTH EVERY DAY atorvastatin 20 MG tablet 20 mg PO QHS levothyroxine 200 MCG tablet 350 mcg PO DAILY acetaminophen 325 MG tablet 650 mg PO Q6H PRN PRN (Reason: Pain Score 1-10/Temp > 100.7 F) 0RF insulin degludec 200 UNIT/ML insulin pen 100 unit SQ DAILY Label Comments: INJECT 110 UNITS SUBCUTANEOUSLY EVERY MORNING. docusate sodium 100 MG capsule 100 mg PO DAILY PRN (Reason: Constipation) metformin 500 mg tablet extended release 24 hr 1,000 mg PO DAILY Label Comments: TAKE 2 TABLETS BY MOUTH TWICE A DAY insulin lispro 100 UNIT/ML insulin pen 46 unit SC TIDAC Protocol: 5. Sliding Scale Insulin High Dosing Condition: 150-209 mg/dl = 3 units Condition: 210-259 mg/dl = 6 units Condition: 260-324 mg/dl = 9 units Condition: 325-374 mg/dl = 12 units Condition: 375-409 mg/dl = 14 units Condition: 410-449 mg/dl = 16 units Condition: Greater than 449 call physician Protocol Text: - Use for Total Daily Dose of Insulin 81-120 units - Very insulin resistant or septic patients HIGH DOSING ALGORITHM Rx Instructions: 46 base plus sliding scale cefdinir 300 mg capsule 300 mg PO BID Qty: 10 0RF clindamycin HCl [Cleocin HCl] 300 mg capsule 300 mg PO Q6H Qty: 40 0RF hydrocodone-acetaminophen [hydrocodone-acetaminophen] 5-325 mg tablet 1 tab PO Q4H PRN PRN (Reason: Pain) 2 Days Qty: 15 0RF ondansetron 4 mg tablet,disintegrating 4 mg PO Q8H PRN (Reason: nausea and vomiting) Qty: 10 0RF Primary Care Provider: Tj Douglass Referrals: Tj Douglass MD [Primary Care Provider] - Disposition Disposition: Home, Self Care
[2022-09-21 15:45] LABS: Absolute Lymphocyte Count 2.57 X10^3/uL (0.83-4.51); Absolute Neutrophil Count 4.7 X10^3/uL (2.0-7.7); Basophil# 0.05 X10^3/uL; Basophil% 0.6 % (0-1); Eosinophil# 0.22 X10^3/uL; Eosinophils% 2.7 % (0-5); Hematocrit 35.6 % (37-47); Hemoglobin 10.8 g/dL (12.0-15.0); Lymphocyte # 2.57 X10^3/ul (0.83-4.51); Lymphocyte % 31.8 % (19-41); Mean Corp Hgb Conc 30.3 g/dL (32-36); Mean Corpuscular Hgb 24.5 pg (27.0-32.0); Mean Corpuscular Volume 80.9 fL (81-99); Mean Platelet Vol. 9.8 fl (6.2-12.0); Monocyte# 0.42 X10^3/uL; Monocyte% 5.2 % (0-10); NRBC Flagged by Analyzer 0 % (0-5); Neutrophil # 4.68 X10^3/uL (2.7-7.7); Neutrophil % 58.1 % (47-70); Platelet Count 235 K/mm3 (150-450); RBC Distribution Width CV 14.6 % (11.6-14.6); RBC Distribution Width SD 42.4 fl (35.1-43.9); White Blood Count 8.1 K/mm3 (4.4-11.0)
--- NOTE | 2022-09-21 15:50 | RAD_ITS ---
EXAM: XR CHEST, 1 VIEW CLINICAL INDICATION: chest pain TECHNIQUE: Frontal view of the chest. This report was created using [employer] report generation technology. COMPARISON: 08/12/2022 FINDINGS: LUNGS AND PLEURAL SPACES: Interstitial opacities are again present which may represent scar. There is trace bibasilar airspace disease possibly representing atelectasis. No effusions are identified. No pneumothorax. HEART: Unremarkable. Cardiac silhouette not enlarged. MEDIASTINUM: Central airways and mediastinal contour are unremarkable. BONES/JOINTS: See above. SOFT TISSUES: Unremarkable. RAD/Chest 1 View (Portable) IMPRESSION: Stable interstitial scarring with trace bibasilar airspace disease which may represent minimal atelectasis. There is no focal consolidation or effusion. Electronically Signed: Dameon Lopez MD at 16:49 EST ,
[2022-09-21 15:58] LABS: Anion Gap 5 (5-15); BUN 14 mg/dL (7-18); Calcium,Total 8.8 mg/dL (8.5-10.1); Chloride 101 mmol/L (98-107); Creatinine, Serum 0.67 mg/dL (0.55-1.02); EST Glomerular Filtration Rate 97 mL/min (>60); Est Glom Filt Rate - Afr Amer 118 mL/min (>60); Estimated Creatinine Clearance 71.59 ml/min; Glucose 245 mg/dL (74-106); Sodium Level 138 mmol/L (136-145); Troponin-I HS 52 pg/mL (3.0-54.0)
[2022-09-21 16:18] LABS: BNP,B-Type NATRIURETIC PEPTIDE 41.3 pg/mL (0-100)
[2022-09-21 16:42] LABS: Bacteria 0 SEEN /hpf (None Seen)
[2022-09-21 17:08] LABS: Color, Urine Yellow (Yellow); Glucose, Dipstick Normal (Normal); Ketone-Dipstick Negative (Negative); Leukocyte Esterase-Dipstick 500 /ul (Negative); Nitrite-Dipstick Negative (Negative); Occult Blood-Urine 250 /ul (Negative); Protein-Dipstick 30 mg/dl (Negative); Urine Bilirubin Dipstick Negative (Negative); Urine Clarity Cloudy (Clear); Urine Urobilinogen Normal (Normal)
[2022-09-21 17:59] LABS: Mucous, Urine 1+ /hpf (<or=2+); Red Blood Cells-Urine 5-10 SEEN /hpf (0-5); Squamous Epithelial Cells - UA 10-25 SEEN /hpf (5-10); White Blood Cells 25-50 SEEN /hpf (0-5)
== END 2022-09-21 18:14 | disposition home or self-care (01) ==
PROVIDERS: Emergency Provider Student in an Organized Health Care Education/Training Program; PCP Family Medicine; Visit Provider Student in an Organized Health Care Education/Training Program
DX: R53.1 Weakness (principal); R06.09 Other forms of dyspnea; D64.9 Anemia, unspecified; Z87.891 Personal history of nicotine dependence
CPT/HCPCS: 71045; 80048; 81001; 82962; 83880; 84484; 85025; 93005; 99284

== ENCOUNTER 2022-10-10 05:04 | Emergency (ER) | payer OTHER, SELFPAY ==
[2022-10-10 05:05] VITALS: BP 137/98; PULSE 94; RESP 20; TEMP 36.2; O2SAT 97; BMI 47.4
--- NOTE | 2022-10-10 05:10 | ED.VIS.GI ---
HPI HPI - GI History of Present Illness Chief Complaint: Abd Pain Informant: patient Abdominal Pain/Flank Pain Onset: Yesterday Context: Gradual Onset Timing: Continuous Quality: Aching Location: - (Lower abdomen, both sides. Nonradiating.) Current Severity: Moderate Maximum Severity: Moderate Worsened by: - (Urinating) Relieved by: Nothing Nausea/Vomiting/Emesis GI Symptom: Negative for Nausea or Vomiting Diarrhea/Melena/Hematochezia GI Symptom: Negative for Diarrhea, Melena or Hematochezia Associated Symptoms Associated Symptoms: Positive for Dysuria, Frequency, Hematuria, Urgency and - (Urinary hesitancy) Narrative Narrative: 56-year-old female presents with urinary symptoms that started yesterday afternoon, followed by lower abdominal pain. No back pain, nausea, vomiting, fevers or chills. Minor specks of blood with her urine, but no gross hematuria. No urinary retention. No vaginal discharge or bleeding. Has had a urine infection in the past, she admits this does feel similar except for the pain is a little more intense. States that she took the last pill of a Z-Alvarado a couple days ago for a cold which it has not helped. She has minor rhinorrhea, congestion, cough without dyspnea. [facility] Medical History Anemia Arthritis Back pain Bloody stool Depression Diabetes History of frequent headaches Hyperlipidemia Hypertension Hypothyroid Hypothyroidism Morbid obesity Noncompliance with medication regimen Thyroid disease Home Medications albuterol sulfate 2.5 mg/3 mL (0.083 %) solution for nebulization 2.5 mg inhalation Q4H PRN PRN Sob &/Or Wheezing 04/11/18 [History Last Taken Unknown] lisinopril 2.5 mg tablet 2.5 mg PO DAILY BP 04/11/18 [History Last Taken 10/06/19] fluoxetine 40 mg capsule 40 mg PO DAILY DEPRESSION 02/12/19 [History Last Taken 10/06/19] atorvastatin 20 mg tablet 20 mg PO QHS CHOLESTEROL 10/06/19 [History Last Taken 10/05/19] levothyroxine 200 mcg tablet 350 mcg PO DAILY THYROID 10/06/19 [History Last Taken 10/06/19] acetaminophen 325 mg tablet 650 mg PO Q6H PRN PRN Pain Score 1-10/Temp > 100.7 F 10/09/19 [Rx Last Taken Unknown] insulin degludec 200 unit/mL (3 mL) subcutaneous pen 100 unit SQ DAILY dm 06/13/20 [History Last Taken Unknown] docusate sodium 100 mg capsule 100 mg PO DAILY PRN Constipation 09/07/20 [History Last Taken Unknown] metformin 500 mg tablet,extended release 24 hr 1,000 mg PO DAILY dm 03/29/21 [History Last Taken Unknown] insulin lispro 100 unit/mL subcutaneous pen 46 unit SC TIDAC dm 07/21/21 [History Last Taken Unknown] cefdinir 300 mg capsule 300 mg PO BID #10 caps 02/11/22 [Rx Last Taken Unknown] clindamycin HCl 300 mg capsule (Cleocin HCl) 300 mg PO Q6H #40 CAPSULES 06/08/22 [Rx Last Taken Unknown] hydrocodone-acetaminophen 5-325mg 5mg-325mg 1 tab PO Q4H PRN PRN Pain 2 days #15 TABLETS 06/08/22 [Rx Last Taken Unknown] ondansetron 4 mg disintegrating tablet 4 mg PO Q8H PRN nausea and vomiting #10 tabs 08/12/22 [Rx Last Taken Unknown] cephalexin 500 mg capsule 500 mg PO Q12 #10 CAPSULES 10/10/22 [Rx Last Taken Unknown] phenazopyridine 200 mg tablet (Pyridium) 200 mg PO BID PRN PRN Pain #10 tabs 10/10/22 [Rx Last Taken Unknown] Allergy/AdvReac Type Severity Reaction Status Date / Time codeine Allergy Angioedema Verified 10/10/22 05:09 nitrofurantoin Allergy edema Verified 10/10/22 05:09 Penicillins Allergy Rash Verified 10/10/22 05:09 Sulfa (Sulfonamide Allergy Rash Verified 10/10/22 05:09 Antibiotics) sulfamethoxazole [Bactrim] Allergy Unknown Verified 10/10/22 05:09 trimethoprim [Bactrim] Allergy Unknown Verified 10/10/22 05:09 Family History Other Cancer Surgical History Hx of cholecystectomy Social History household members: none Smoking Status: Former smoker alcohol intake: current details: Patient states she does not drink however nurse documents and prior note do substance use type: does not use ROS ROS ED Constitutional Constitutional ED: Denies chills or fever(s) Eyes Eyes: Denies change in vision or diplopia ENT ENT ED: Denies rhinorrhea or sore throat Cardiovascular Cardiovascular: Denies chest pain or palpitations Respiratory/Chest Respiratory/Chest: Denies cough or dyspnea Gastrointestinal Gastrointestinal: Reports abdominal pain; Denies diarrhea, nausea or vomiting Genitourinary Genitourinary ED: Reports as per HPI, dysuria, hematuria, urinary frequency and urinary hesitancy Musculoskeletal Musculoskeletal: Denies back pain or neck pain Integumentary Denies abscess or rash Neurologic Neurologic: Denies headache(s), paresthesias or weakness Psychiatric Psychiatric: Denies anxiety or suicidal thoughts EXAM Physical Exam Const Vital Signs: 10/10/22 05:05 Temperature 97.2 F L Temperature Source Temporal Pulse Rate 94 Respiratory Rate 20 H Blood Pressure 137/98 H Blood Pressure Mean 111 Pulse Ox 97 Oxygen Delivery Method Room Air Positive well nourished, well developed and obese General Appearance ED: well developed and NAD Nutritional Appearance: obese HEENT Reports moist mucous membranes normocephalic and atraumatic Eyes PERRL and EOMs intact bilaterally Neck full ROM and supple Resp normal respiratory effort and clear to auscultation bilaterally Cardio regular rate, regular rhythm and no murmurs GI non-distended GI Narrative: Mild tenderness both right and left of suprapubic, no guarding or rebound, otherwise benign. Exam significantly limited due to morbid obesity, the patient indicates that her pain is in her lower abdomen just above the inguinal ligaments, up under her pannus which itself is benign. Examining the patient on top of her abdomen while lying supine, above the pannus, is nontender and benign. Auscultation: normoactive bowel sounds Palpation: soft Back/Spine no CVA tenderness General Back: other FROM Extremity normal to inspection General Extremety ED: Negative for edema, pulses abnormal or tenderness General Extremity: Negative for edema or pulses abnormal Neuro oriented x3, CN's II-XII intact bilaterally, no sensory deficits noted and gait normal Sensorium / Orientation: awake and alert Motor Exam: strength 5/5 throughout Psych mental status grossly normal and thought process normal Skin no rashes or lesions noted and no wounds MDM MDM MDM Narrative Medical decision making narrative: Urinalysis obtained, very consistent with infection. Very likely lower abdominal pain she is having his bladder pain, if the antibiotic helps the urinary symptoms but not the pain she is advised to follow-up closely. Culture sent, prescribed the patient cephalexin and Pyridium (patient is allergic to the other first-line recommended medications and fosphenytoin not available), we will have those prescriptions filled here before she leaves so that she can start taking them she is comfortable with that plan. Lab Data Attestation: I reviewed the patient's lab results. Labs: Laboratory Results - last 24 hr 10/10/22 05:20 Urine Color Yellow Urine Clarity Turbid Urine pH 6.5 Ur Specific [place] 1.015 Urine Protein 100 H Urine Glucose (UA) Normal Urine Ketones Negative Urine Occult Blood 150 H Urine Nitrite Positive H Urine Bilirubin Negative Urine Urobilinogen Normal Ur Leukocyte Esterase 500 H Urine RBC 25-50 SEEN Urine WBC >100 SEEN Ur Squamous Epith Cells 0 SEEN Urine Bacteria 4+ Urine Mucus 0 SEEN Discharge Plan Triage Chief Complaint: Abd Pain ED Provider: Sid Rivera Dx/Rx/DC Orders Clinical Impression: Acute cystitis with hematuria Instructions: ED Cystitis Female Adult Prescriptions: New phenazopyridine [Pyridium] 200 mg tablet 200 mg PO BID PRN PRN (Reason: Pain) Qty: 10 0RF cephalexin [cephalexin] 500 mg capsule 500 mg PO Q12 Qty: 10 0RF No Action albuterol sulfate 2.5 mg /3 mL (0.083 %) solution for nebulization 2.5 mg INHALATION Q4H PRN PRN (Reason: Sob &/Or Wheezing) lisinopril 2.5 mg tablet 2.5 mg PO DAILY fluoxetine 40 MG capsule 40 mg PO DAILY Label Comments: TAKE 1 CAPSULE BY MOUTH EVERY DAY atorvastatin 20 MG tablet 20 mg PO QHS levothyroxine 200 MCG tablet 350 mcg PO DAILY acetaminophen 325 MG tablet 650 mg PO Q6H PRN PRN (Reason: Pain Score 1-10/Temp > 100.7 F) 0RF insulin degludec 200 UNIT/ML insulin pen 100 unit SQ DAILY Label Comments: INJECT 110 UNITS SUBCUTANEOUSLY EVERY MORNING. docusate sodium 100 MG capsule 100 mg PO DAILY PRN (Reason: Constipation) metformin 500 mg tablet extended release 24 hr 1,000 mg PO DAILY Label Comments: TAKE 2 TABLETS BY MOUTH TWICE A DAY insulin lispro 100 UNIT/ML insulin pen 46 unit SC TIDAC Protocol: 5. Sliding Scale Insulin High Dosing Condition: 150-209 mg/dl = 3 units Condition: 210-259 mg/dl = 6 units Condition: 260-324 mg/dl = 9 units Condition: 325-374 mg/dl = 12 units Condition: 375-409 mg/dl = 14 units Condition: 410-449 mg/dl = 16 units Condition: Greater than 449 call physician Protocol Text: - Use for Total Daily Dose of Insulin 81-120 units - Very insulin resistant or septic patients HIGH DOSING ALGORITHM Rx Instructions: 46 base plus sliding scale cefdinir 300 mg capsule 300 mg PO BID Qty: 10 0RF clindamycin HCl [Cleocin HCl] 300 mg capsule 300 mg PO Q6H Qty: 40 0RF hydrocodone-acetaminophen [hydrocodone-acetaminophen] 5-325 mg tablet 1 tab PO Q4H PRN PRN (Reason: Pain) 2 Days Qty: 15 0RF ondansetron 4 mg tablet,disintegrating 4 mg PO Q8H PRN (Reason: nausea and vomiting) Qty: 10 0RF Primary Care Provider: Tj Douglass Referrals: Tj Douglass MD [Primary Care Provider] - 3-5 Days if not improving Activity Restrictions/Additional Instructions: Eat yogurt daily or take a probiotic to prevent antibiotic associated diarrhea since the azithromycin is still in your system for another 3 days or so. Disposition Disposition: Home, Self Care
[2022-10-10 05:26] LABS: Mucous, Urine 0 SEEN /hpf (<or=2+); Squamous Epithelial Cells - UA 0 SEEN /hpf (5-10)
[2022-10-10 05:27] LABS: Color, Urine Yellow (Yellow); Glucose, Dipstick Normal (Normal); Ketone-Dipstick Negative (Negative); Leukocyte Esterase-Dipstick 500 /ul (Negative); Nitrite-Dipstick Positive (Negative); Occult Blood-Urine 150 /ul (Negative); Protein-Dipstick 100 mg/dl (Negative); Specific Gravity, Urine 1.015 (1.002-1.030); Urine Bilirubin Dipstick Negative (Negative); Urine Clarity Turbid (Clear); Urine Urobilinogen Normal (Normal); Urine pH 6.5 (5.0 - 8.0)
[2022-10-10 05:42] LABS: Bacteria 4+ /hpf (None Seen); Red Blood Cells-Urine 25-50 SEEN /hpf (0-5); White Blood Cells >100 SEEN /hpf (0-5)
== END 2022-10-10 06:33 | disposition home or self-care (01) ==
PROVIDERS: Emergency Provider Emergency Medicine; PCP Family Medicine; Visit Provider Emergency Medicine
DX: N30.01 Acute cystitis with hematuria (principal); E66.9 Obesity, unspecified; Z87.891 Personal history of nicotine dependence
CPT/HCPCS: 81001; 87086; 87088; 87186; 99282

== ENCOUNTER 2022-10-25 08:51 | Emergency (ER) | payer OTHER, SELFPAY ==
[2022-10-25 08:54] VITALS: BP 132/64; PULSE 96; RESP 18; TEMP 35.5; O2SAT 97; BMI 47.4
--- NOTE | 2022-10-25 09:10 | RAD_ITS ---
STUDY: X-RAY CHEST REASON FOR EXAM: Female, 56 years old. Chest pain TECHNIQUE: Single AP portable view of the chest. COMPARISON: Comparison is made with prior examination September 21, 2022. FINDINGS: EKG electrodes are seen. Stable bilateral increased linear markings in the right mid lung as well as at the left lung base. This is suggestive of a scarring. No focal infiltrate is seen. There is no demonstrated pleural abnormality. Normal size heart. Normal mediastinum and leigh. Normal visualized pulmonary arteries. There is atherosclerotic tortuosity of the aortic arch and descending thoracic aorta. There are diffuse degenerative changes of the visualized thoracic spine. Normal visualized ribs, clavicles, and shoulders. There is no demonstrated abnormality of the visualized soft tissue structures of the upper abdomen. RAD/Chest 1 View (Portable) IMPRESSION: Stable increased linear markings at the lung bases suggestive of bibasilar scarring. Electronically Signed: Moy Rivera MD at 10:11 EDT ,
--- NOTE | 2022-10-25 09:11 | EDS_ITS ---
HPI History of Present Illness Chief Complaint: Edema Narrative Narrative: 56-year-old female presenting with chief complaint of pain all over and swelling in arms, legs, face. She states this started acutely this morning. She states the only thing she did different was drink a glass of Crystal light line made. She has not any throat closure or shortness of breath. She is not having chest pain. Denies history of CHF. Patient does have history of diabetes and states that her blood sugar this morning was in the 300s. She also states that she had some problems with her thyroid when she was seen a couple of months ago for this. She supposed to follow-up in a couple of months for reevaluation. She states she called her primary care physician's office this morning and they sent her to the emergency room because they thought she was having allergic reaction. There are no rashes rashes. No abdominal pain, nausea. She is not short of breath. No trouble swallowing or breathing [facility] Medical History Anemia Arthritis Back pain Bloody stool Depression Diabetes History of frequent headaches Hyperlipidemia Hypertension Hypothyroid Hypothyroidism Morbid obesity Noncompliance with medication regimen Thyroid disease Home Medications albuterol sulfate 2.5 mg/3 mL (0.083 %) solution for nebulization 2.5 mg inhalation Q4H PRN PRN Sob &/Or Wheezing 04/11/18 [History Last Taken Unknown] lisinopril 2.5 mg tablet 2.5 mg PO DAILY BP 04/11/18 [History Last Taken 10/06/19] fluoxetine 40 mg capsule 40 mg PO DAILY DEPRESSION 02/12/19 [History Last Taken 10/06/19] atorvastatin 20 mg tablet 20 mg PO QHS CHOLESTEROL 10/06/19 [History Last Taken 10/05/19] levothyroxine 200 mcg tablet 350 mcg PO DAILY THYROID 10/06/19 [History Last Taken 10/06/19] acetaminophen 325 mg tablet 650 mg PO Q6H PRN PRN Pain Score 1-10/Temp > 100.7 F 10/09/19 [Rx Last Taken Unknown] insulin degludec 200 unit/mL (3 mL) subcutaneous pen 100 unit SQ DAILY dm 06/13/20 [History Last Taken Unknown] docusate sodium 100 mg capsule 100 mg PO DAILY PRN Constipation 09/07/20 [History Last Taken Unknown] metformin 500 mg tablet,extended release 24 hr 1,000 mg PO DAILY dm 03/29/21 [History Last Taken Unknown] insulin lispro 100 unit/mL subcutaneous pen 46 unit SC TIDAC dm 07/21/21 [History Last Taken Unknown] cefdinir 300 mg capsule 300 mg PO BID #10 caps 02/11/22 [Rx Last Taken Unknown] clindamycin HCl 300 mg capsule (Cleocin HCl) 300 mg PO Q6H #40 CAPSULES 06/08/22 [Rx Last Taken Unknown] hydrocodone-acetaminophen 5-325mg 5mg-325mg 1 tab PO Q4H PRN PRN Pain 2 days #15 TABLETS 06/08/22 [Rx Last Taken Unknown] ondansetron 4 mg disintegrating tablet 4 mg PO Q8H PRN nausea and vomiting #10 tabs 08/12/22 [Rx Last Taken Unknown] cephalexin 500 mg capsule 500 mg PO Q12 #10 CAPSULES 10/10/22 [Rx Last Taken Unknown] phenazopyridine 200 mg tablet (Pyridium) 200 mg PO BID PRN PRN Pain #10 tabs 10/10/22 [Rx Last Taken Unknown] Allergy/AdvReac Type Severity Reaction Status Date / Time codeine Allergy Angioedema Verified 10/25/22 08:57 nitrofurantoin Allergy edema Verified 10/25/22 08:57 Penicillins Allergy Rash Verified 10/25/22 08:57 Sulfa (Sulfonamide Allergy Rash Verified 10/25/22 08:57 Antibiotics) sulfamethoxazole [Bactrim] Allergy Unknown Verified 10/25/22 08:57 trimethoprim [Bactrim] Allergy Unknown Verified 10/25/22 08:57 Family History Other Cancer Surgical History Hx of cholecystectomy Social History household members: none Smoking Status: Former smoker alcohol intake: current details: Patient states she does not drink however nurse documents and prior note do substance use type: does not use ROS ROS ED Constitutional Constitutional ED: Denies chills or fever(s) Eyes Eyes: Denies change in vision or diplopia ENT ENT ED: Denies rhinorrhea or sore throat Cardiovascular Cardiovascular: Denies chest pain or palpitations Respiratory/Chest Respiratory/Chest: Denies cough or dyspnea Gastrointestinal Gastrointestinal: Denies abdominal pain, nausea or vomiting Genitourinary Genitourinary ED: Denies dysuria or hematuria Musculoskeletal Musculoskeletal: Reports other Details: Pain all over ; Denies arthralgias Integumentary Denies abscess or Abrasions Neurologic Neurologic: Denies headache(s) Psychiatric Psychiatric: Denies anxiety or depression EXAM Physical Exam Const Vital Signs: 10/25/22 08:54 10/25/22 09:20 10/25/22 09:20 Temperature 96 F L Temperature Source Temporal Pulse Rate 96 Respiratory Rate 18 Respiratory Effort Normal Respiratory Pattern Normal Blood Pressure 132/64 H Blood Pressure Mean 86 Pulse Ox 97 97 Oxygen Delivery Method Room Air Room Air 10/25/22 09:51 Temperature Temperature Source Pulse Rate 71 Respiratory Rate 18 Respiratory Effort Respiratory Pattern Blood Pressure 98/61 Blood Pressure Mean 73 Pulse Ox 97 Oxygen Delivery Method Positive well nourished and obese General Appearance ED: NAD; Negative for pallor Nutritional Appearance: obese HEENT Reports moist mucous membranes Eyes PERRL and EOMs intact bilaterally General Eye ED: Negative for pale conjunctiva or scleral icterus Chest Wall inspection of chest normal Resp normal respiratory effort and clear to auscultation bilaterally Auscultation: Negative for rales, rhonchi or wheezes Cardio regular rate and regular rhythm Extremity General Extremety ED: Yes edema General Extremity: edema Neuro oriented x3 and CN's II-XII intact bilaterally Sensorium / Orientation: alert and orientation impaired Motor Exam: strength 5/5 throughout Psych mental status grossly normal Skin no rashes or lesions noted and no wounds General Skin Exam: Negative for jaundice or pallor MDM MDM MDM Narrative Medical decision making narrative: 56-year-old female presenting with edema all over. She does have evidence of lower extremity edema although I do not see any edema in her hands or in her face. We will obtain lab work including CBC to assess white blood cell count, hemoglobin and platelets, differential. BMP to assess renal function, electrolytes, glucose, anion gap. TSH, T3, T4 because the patient is a poor informant and states that she has had problems with her thyroid issues. High- sensitivity troponin, EKG, BNP to rule out CHF and heart strain. EKG on my interpretation is normal sinus rhythm with a ventricular rate of 90 bpm with bifascicular block. Unchanged from previous EKG 21 September 2022. Chest x-ray on my interpretation is no acute cardiopulmonary process. Radiologist are present and agrees. CBC with normal white blood cell count, hemoglobin stable. Platelets normal. Renal function electrolytes within normal limits with exception of a sodium of 132. Glucose is elevated at 366 without anion gap elevation. Patient reports that her blood sugars have been elevated recently. It looks like they have been in the 200s the last couple of visits here. High- sensitivity troponin 37. BNP within normal limits at 10.6. TSH was abnormal at 0.33 however her free T3 and T4 are normal. Patient was discussed with Dr. Naranjo who is on-call for her primary care physician. Discussed that she had been here twice with similar complaints. She was deferred here today out of concern she was having allergic reaction I reassured him that she has not. He states he will ensure follow-up. Discussed all findings with the patient he is amenable to discharge. Follow-up with discussed. Return precautions discussed. Impression: 1. Lymphedema 2. Myalgias Lab Data Labs: Laboratory Results - last 24 hr 10/25/22 10/25/22 10/25/22 09:20 09:20 09:20 WBC 7.3 RBC 4.69 Hgb 12.1 Hct 37.9 MCV 80.8 L MCH 25.8 L MCHC 31.9 L RDW Std Deviation 45.1 H RDW Coeff of [place] 15.5 H Plt Count 207 MPV 9.8 Immature Gran % (Auto) 1.000 H Neut % (Auto) 60.3 Lymph % (Auto) 30.7 [place] % (Auto) 5.2 Eos % (Auto) 2.1 Baso % (Auto) 0.7 Absolute Neuts (auto) 4.4 Absolute Lymphs (auto) 2.24 Nucleated RBC % 0 Sodium 132 L Potassium 4.2 Chloride 98 Carbon Dioxide 30.0 Anion Gap 4 L BUN 19 H Creatinine 0.84 Estim Creat Clear Calc 57.10 Est GFR (MDRD) Af Amer 91 Est GFR (MDRD) Non-Af 75 BUN/Creatinine Ratio 22.8 H Glucose 366 H Calcium 9.2 Troponin I High Sens 37 B-Natriuretic Peptide 10.6 TSH 0.34 L Free T4 1.22 Free T3 pg/dL 2.7 Radiography Diagnostic Testing: Clinical Impression(s) from Imaging Studies Chest X-Ray 10/25/22 09:10 IMPRESSION: Stable increased linear markings at the lung bases suggestive of bibasilar scarring. Electronically Signed: Moy Rivera MD at 10:11 EDT , Discharge Plan Triage Chief Complaint: Edema ED Provider: Hiram Hernandez Dx/Rx/DC Orders Instructions: ED Lymphedema Prescriptions: No Action albuterol sulfate 2.5 mg /3 mL (0.083 %) solution for nebulization 2.5 mg INHALATION Q4H PRN PRN (Reason: Sob &/Or Wheezing) lisinopril 2.5 mg tablet 2.5 mg PO DAILY fluoxetine 40 MG capsule 40 mg PO DAILY Label Comments: TAKE 1 CAPSULE BY MOUTH EVERY DAY atorvastatin 20 MG tablet 20 mg PO QHS levothyroxine 200 MCG tablet 350 mcg PO DAILY acetaminophen 325 MG tablet 650 mg PO Q6H PRN PRN (Reason: Pain Score 1-10/Temp > 100.7 F) 0RF insulin degludec 200 UNIT/ML insulin pen 100 unit SQ DAILY Label Comments: INJECT 110 UNITS SUBCUTANEOUSLY EVERY MORNING. docusate sodium 100 MG capsule 100 mg PO DAILY PRN (Reason: Constipation) metformin 500 mg tablet extended release 24 hr 1,000 mg PO DAILY Label Comments: TAKE 2 TABLETS BY MOUTH TWICE A DAY insulin lispro 100 UNIT/ML insulin pen 46 unit SC TIDAC Protocol: 5. Sliding Scale Insulin High Dosing Condition: 150-209 mg/dl = 3 units Condition: 210-259 mg/dl = 6 units Condition: 260-324 mg/dl = 9 units Condition: 325-374 mg/dl = 12 units Condition: 375-409 mg/dl = 14 units Condition: 410-449 mg/dl = 16 units Condition: Greater than 449 call physician Protocol Text: - Use for Total Daily Dose of Insulin 81-120 units - Very insulin resistant or septic patients HIGH DOSING ALGORITHM Rx Instructions: 46 base plus sliding scale cefdinir 300 mg capsule 300 mg PO BID Qty: 10 0RF clindamycin HCl [Cleocin HCl] 300 mg capsule 300 mg PO Q6H Qty: 40 0RF hydrocodone-acetaminophen [hydrocodone-acetaminophen] 5-325 mg tablet 1 tab PO Q4H PRN PRN (Reason: Pain) 2 Days Qty: 15 0RF ondansetron 4 mg tablet,disintegrating 4 mg PO Q8H PRN (Reason: nausea and vomiting) Qty: 10 0RF phenazopyridine [Pyridium] 200 mg tablet 200 mg PO BID PRN PRN (Reason: Pain) Qty: 10 0RF cephalexin [cephalexin] 500 mg capsule 500 mg PO Q12 Qty: 10 0RF Primary Care Provider: Tj Douglass Referrals: Tj Douglass MD [Primary Care Provider] - Disposition Disposition: Home, Self Care
[2022-10-25 09:20] VITALS: O2SAT 97
[2022-10-25 09:31] LABS: Absolute Lymphocyte Count 2.24 X10^3/uL (0.83-4.51); Absolute Neutrophil Count 4.4 X10^3/uL (2.0-7.7); Basophil# 0.05 X10^3/uL; Basophil% 0.7 % (0-1); Eosinophil# 0.15 X10^3/uL; Eosinophils% 2.1 % (0-5); Hematocrit 37.9 % (37-47); Hemoglobin 12.1 g/dL (12.0-15.0); Lymphocyte # 2.24 X10^3/ul (0.83-4.51); Lymphocyte % 30.7 % (19-41); Mean Corp Hgb Conc 31.9 g/dL (32-36); Mean Corpuscular Hgb 25.8 pg (27.0-32.0); Mean Corpuscular Volume 80.8 fL (81-99); Mean Platelet Vol. 9.8 fl (6.2-12.0); Monocyte# 0.38 X10^3/uL; Monocyte% 5.2 % (0-10); NRBC Flagged by Analyzer 0 % (0-5); Neutrophil % 60.3 % (47-70); Platelet Count 207 K/mm3 (150-450); RBC Distribution Width CV 15.5 % (11.6-14.6); RBC Distribution Width SD 45.1 fl (35.1-43.9); Red Blood Count 4.69 M/mm3 (4.2-5.4); White Blood Count 7.3 K/mm3 (4.4-11.0)
[2022-10-25 09:51] VITALS: BP 98/61; PULSE 71; RESP 18; O2SAT 97
[2022-10-25 09:55] LABS: Anion Gap 4 (5-15); BUN 19 mg/dL (7-18); BUN/Creat Ratio 22.8 RATIO (10-20); Calcium,Total 9.2 mg/dL (8.5-10.1); Chloride 98 mmol/L (98-107); Creatinine, Serum 0.84 mg/dL (0.55-1.02); EST Glomerular Filtration Rate 75 mL/min (>60); Est Glom Filt Rate - Afr Amer 91 mL/min (>60); Free T3 2.7 pg/mL (2.18-3.98); Glucose 366 mg/dL (74-106); Potassium 4.2 mmol/L (3.5-5.1); Sodium Level 132 mmol/L (136-145); T4 Free Direct 1.22 ng/dL (0.76-1.46); Thyroid Stim Hormone (TSH) 0.34 uIU/mL (0.358-3.74); Troponin-I HS 37 pg/mL (3.0-54.0)
[2022-10-25 10:11] LABS: BNP,B-Type NATRIURETIC PEPTIDE 10.6 pg/mL (0-100)
[2022-10-25 11:13] VITALS: BP 106/60; PULSE 75; RESP 18; TEMP 36.5; O2SAT 92
== END 2022-10-25 11:14 | disposition home or self-care (01) ==
PROVIDERS: Emergency Provider Student in an Organized Health Care Education/Training Program; PCP Family Medicine; Referring Provider Student in an Organized Health Care Education/Training Program; Visit Provider Student in an Organized Health Care Education/Training Program
DX: I89.0 Lymphedema, not elsewhere classified (principal); E66.01 Morbid (severe) obesity due to excess calories; Z68.42 Body mass index [BMI] 45.0-49.9, adult; E11.9 Type 2 diabetes mellitus without complications; Z79.4 Long term (current) use of insulin; M79.18 Myalgia, other site; I10 Essential (primary) hypertension; E78.5 Hyperlipidemia, unspecified; E03.9 Hypothyroidism, unspecified; Z79.899 Other long term (current) drug therapy; Z87.891 Personal history of nicotine dependence; Z79.84 Long term (current) use of oral hypoglycemic drugs
CPT/HCPCS: 71045; 80048; 83880; 84439; 84443; 84481; 84484; 85025; 93005; 99284; A4216

== ENCOUNTER 2023-01-07 12:50 | Emergency (ER) | payer OTHER, SELFPAY ==
[2023-01-07 12:51] VITALS: BP 159/72; PULSE 99; RESP 18; TEMP 36.6; O2SAT 94; BMI 48.5
[2023-01-07 13:18] LABS: Bedside Glucose > 500 mg/dL (74-106)
[2023-01-07] MEDS: 0.9% Normal Saline 1,000 ML 1000 ML IV (13:59)
[2023-01-07 14:04] VITALS: BP 114/55
[2023-01-07 14:13] LABS: Bacteria 0 SEEN /hpf (None Seen); Mucous, Urine 0 SEEN /hpf (<or=2+)
[2023-01-07 14:16] LABS: Color, Urine Yellow (Yellow); Glucose, Dipstick 1000 mg/dl (Normal); Ketone-Dipstick Negative (Negative); Leukocyte Esterase-Dipstick 25 /ul (Negative); Nitrite-Dipstick Negative (Negative); Occult Blood-Urine 50 /ul (Negative); Protein-Dipstick 15 mg/dl (Negative); Urine Bilirubin Dipstick Negative (Negative); Urine Clarity Sl. Cloudy (Clear); Urine Urobilinogen Normal (Normal)
[2023-01-07 14:19] LABS: Absolute Neutrophil Count 5.5 X10^3/uL (2.0-7.7); Basophil# 0.08 X10^3/uL; Basophil% 0.9 % (0-1); Eosinophil# 0.16 X10^3/uL; Eosinophils% 1.8 % (0-5); Hematocrit 44.6 % (37-47); Hemoglobin 14.1 g/dL (12.0-15.0); Mean Corp Hgb Conc 31.6 g/dL (32-36); Mean Corpuscular Hgb 25.8 pg (27.0-32.0); Mean Corpuscular Volume 81.7 fL (81-99); Mean Platelet Vol. 9.9 fl (6.2-12.0); Monocyte# 0.43 X10^3/uL; Monocyte% 4.8 % (0-10); NRBC Flagged by Analyzer 0 % (0-5); Neutrophil # 5.45 X10^3/uL (2.7-7.7); Neutrophil % 60.2 % (47-70); Platelet Count 235 K/mm3 (150-450); RBC Distribution Width CV 14.9 % (11.6-14.6); RBC Distribution Width SD 43.7 fl (35.1-43.9); Red Blood Count 5.46 M/mm3 (4.2-5.4)
[2023-01-07 14:20] LABS: Blood Gas Specimen Type VEN; VBG BASE EXCESS 7 mmol/L (-1.0-3.5); VBG Bicarbonate 32 mmol/L (22-26); VBG PO2 37 mmHg (25-40); VBG SO2 66 % (50-70); VBG TCO2 34 mmol/L (23-33); VBG pCO2 56.7 mmHg (41-51); VBG pH 7.36 (7.32-7.42)
[2023-01-07 14:29] LABS: Red Blood Cells-Urine 0-5 SEEN /hpf (0-5); Squamous Epithelial Cells - UA 0-5 SEEN /hpf (5-10); White Blood Cells 10-25 SEEN /hpf (0-5)
[2023-01-07 14:32] LABS: Anion Gap 5 (5-15); BUN 13 mg/dL (7-18); BUN/Creat Ratio 13.3 RATIO (10-20); Calcium,Total 9.6 mg/dL (8.5-10.1); Chloride 95 mmol/L (98-107); Creatinine, Serum 0.98 mg/dL (0.55-1.02); EST Glomerular Filtration Rate 63 mL/min (>60); Est Glom Filt Rate - Afr Amer 76 mL/min (>60); Estimated Creatinine Clearance 48.37 ml/min; Glucose 413 mg/dL (74-106); Potassium 4.4 mmol/L (3.5-5.1); Sodium Level 130 mmol/L (136-145)
--- NOTE | 2023-01-07 15:23 | EX.ED.DYSGE1 ---
HPI History of Present Illness Chief Complaint: Hyperglycemia Onset/Context/Timing Onset: Days (3) Context: Sudden Onset Timing: Continuous and Waxes and wanes Quality: Lightheaded Location: Generalized Worsened by: Nothing Relieved by: Nothing Narrative Narrative: Patient presents with elevated blood sugars that have been constant for the last 3 days. Patient states they have been up into the 500s earlier today. Patient states it has been waxing and waning over the last 3 days. Patient states nothing makes it better nothing makes it worse. Patient denies any fevers or chills. Patient denies any nausea or vomiting. Patient does admit to some dysuria and urinary frequency. Patient also admits to some polydipsia. [facility] Medical History Anemia Arthritis Back pain Bloody stool Depression Diabetes History of frequent headaches Hyperlipidemia Hypertension Hypothyroid Hypothyroidism Morbid obesity Noncompliance with medication regimen Thyroid disease Home Medications albuterol sulfate 2.5 mg/3 mL (0.083 %) solution for nebulization 2.5 mg inhalation Q4H PRN PRN Sob &/Or Wheezing 04/11/18 [History Last Taken Unknown] lisinopril 2.5 mg tablet 2.5 mg PO DAILY BP 04/11/18 [History Last Taken 10/06/19] fluoxetine 40 mg capsule 40 mg PO DAILY DEPRESSION 02/12/19 [History Last Taken 10/06/19] atorvastatin 20 mg tablet 20 mg PO QHS CHOLESTEROL 10/06/19 [History Last Taken 10/05/19] levothyroxine 200 mcg tablet 350 mcg PO DAILY THYROID 10/06/19 [History Last Taken 10/06/19] acetaminophen 325 mg tablet 650 mg PO Q6H PRN PRN Pain Score 1-10/Temp > 100.7 F 10/09/19 [Rx Last Taken Unknown] insulin degludec 200 unit/mL (3 mL) subcutaneous pen 100 unit SQ DAILY dm 06/13/20 [History Last Taken Unknown] docusate sodium 100 mg capsule 100 mg PO DAILY PRN Constipation 09/07/20 [History Last Taken Unknown] metformin 500 mg tablet,extended release 24 hr 1,000 mg PO DAILY dm 03/29/21 [History Last Taken Unknown] insulin lispro 100 unit/mL subcutaneous pen 46 unit SC TIDAC dm 07/21/21 [History Last Taken Unknown] cefdinir 300 mg capsule 300 mg PO BID #10 caps 02/11/22 [Rx Last Taken Unknown] clindamycin HCl 300 mg capsule (Cleocin HCl) 300 mg PO Q6H #40 CAPSULES 06/08/22 [Rx Last Taken Unknown] hydrocodone-acetaminophen 5-325mg 5mg-325mg 1 tab PO Q4H PRN PRN Pain 2 days #15 TABLETS 06/08/22 [Rx Last Taken Unknown] ondansetron 4 mg disintegrating tablet 4 mg PO Q8H PRN nausea and vomiting #10 tabs 08/12/22 [Rx Last Taken Unknown] cephalexin 500 mg capsule 500 mg PO Q12 #10 CAPSULES 10/10/22 [Rx Last Taken Unknown] phenazopyridine 200 mg tablet (Pyridium) 200 mg PO BID PRN PRN Pain #10 tabs 10/10/22 [Rx Last Taken Unknown] Allergy/AdvReac Type Severity Reaction Status Date / Time codeine Allergy Angioedema Verified 01/07/23 12:53 nitrofurantoin Allergy edema Verified 01/07/23 12:53 Penicillins Allergy Rash Verified 01/07/23 12:53 Sulfa (Sulfonamide Allergy Rash Verified 01/07/23 12:53 Antibiotics) sulfamethoxazole [Bactrim] Allergy Unknown Verified 01/07/23 12:53 trimethoprim [Bactrim] Allergy Unknown Verified 01/07/23 12:53 Family History Other Cancer Surgical History Hx of cholecystectomy Social History household members: none Smoking Status: Former smoker alcohol intake: current details: Patient states she does not drink however nurse documents and prior note do substance use type: does not use ROS ROS ED Constitutional Constitutional ED: Denies chills or fever(s) Eyes Eyes: Denies blurry vision or change in vision ENT ENT ED: Denies rhinorrhea or sore throat Cardiovascular Cardiovascular: Reports chest pain; Denies palpitations Respiratory/Chest Respiratory/Chest: Reports cough; Denies dyspnea Gastrointestinal Gastrointestinal: Reports abdominal pain; Denies nausea or vomiting Genitourinary Genitourinary ED: Reports dysuria; Denies hematuria Musculoskeletal Musculoskeletal: Denies back pain or neck pain Integumentary Denies abscess or rash Neurologic Neurologic: Denies headache(s) or weakness Endocrine Endocrinology: Reports polydipsia Allergic/Immunologic Allergic/Immunologic ED: Denies mouth swelling or urticaria EXAM Physical Exam Const Vital Signs: 01/07/23 12:51 01/07/23 13:17 01/07/23 14:04 Temperature 97.9 F Temperature Source Temporal Pulse Rate 99 Respiratory Rate 18 Respiratory Effort Normal Respiratory Pattern Tachypnea Blood Pressure 159/72 H 114/55 L Blood Pressure Mean 101 74 Pulse Ox 94 Oxygen Delivery Method Room Air Positive well nourished, well developed and obese General Appearance ED: well developed and NAD Nutritional Appearance: obese HEENT Reports moist mucous membranes Neck supple and no JVD Resp normal respiratory effort and clear to auscultation bilaterally Cardio regular rate, regular rhythm and no murmurs GI normal to inspection, nondistended, normoactive bowel sounds and non-tender Palpation: soft Extremity normal to inspection General Extremety ED: Negative for edema or tenderness General Extremity: Negative for edema Neuro oriented x3, CN's II-XII intact bilaterally and no sensory deficits noted Sensorium / Orientation: alert Motor Exam: strength 5/5 throughout Psych mental status grossly normal Skin no rashes or lesions noted MDM MDM MDM Narrative Medical decision making narrative: Differential diagnosis includes DKA, hyperglycemic hyperosmolar state, and uncontrolled hyperglycemia. CBC will be obtained to assess for leukocytosis and anemia. Basic metabolic profile will be obtained to assess for electrolyte abnormality, renal function, and blood sugar. Serum acetone will be obtained to assess for DKA. Venous blood gas will be obtained to assess for acid-base status. Urinalysis will be obtained to assess for urinary tract infection and urine ketones. Lab Data Attestation: I reviewed the patient's lab results. Lab results narrative: CBC was reviewed and was within normal limits. Basic metabolic profile was reviewed. Glucose was 413. Sodium was 130 chloride was 95. Urinalysis was reviewed. Leukocyte Estrace was 25. There were 10-25 white blood cells. There is 0-5 epithelial cells. There are no bacteria seen. Serum acetone was reviewed and were negative. Venous blood gas was reviewed. pH was 7.36, PCO2 was 56.7, PO2 was 36.6, bicarb was 32.3. Labs: Laboratory Results - last 24 hr 01/07/23 01/07/23 01/07/23 13:00 13:55 13:55 WBC 9.0 RBC 5.46 H Hgb 14.1 Hct 44.6 MCV 81.7 MCH 25.8 L MCHC 31.6 L RDW Std Deviation 43.7 RDW Coeff of [place] 14.9 H Plt Count 235 MPV 9.9 Immature Gran % (Auto) 1.300 H Neut % (Auto) 60.2 Lymph % (Auto) 31.0 [place] % (Auto) 4.8 Eos % (Auto) 1.8 Baso % (Auto) 0.9 Absolute Neuts (auto) 5.5 Absolute Lymphs (auto) 2.80 Nucleated RBC % 0 Sodium 130 L Potassium 4.4 Chloride 95 L Carbon Dioxide 30.0 Anion Gap 5 BUN 13 Creatinine 0.98 Estim Creat Clear Calc 48.37 Est GFR (MDRD) Af Amer 76 Est GFR (MDRD) Non-Af 63 BUN/Creatinine Ratio 13.3 Glucose 413 H Calcium 9.6 Urine Color Urine Clarity Urine pH Ur Specific [place] Urine Protein Urine Glucose (UA) Urine Ketones Urine Occult Blood Urine Nitrite Urine Bilirubin Urine Urobilinogen Ur Leukocyte Esterase Urine RBC Urine WBC Ur Squamous Epith Cells Urine Bacteria Urine Mucus Acetone Level POC Glucose > 500 H* 01/07/23 01/07/23 01/07/23 13:55 13:55 15:24 WBC RBC Hgb Hct MCV MCH MCHC RDW Std Deviation RDW Coeff of [place] Plt Count MPV Immature Gran % (Auto) Neut % (Auto) Lymph % (Auto) Norman % (Auto) Eos % (Auto) Baso % (Auto) Absolute Neuts (auto) Absolute Lymphs (auto) Nucleated RBC % Sodium Potassium Chloride Carbon Dioxide Anion Gap BUN Creatinine Estim Creat Clear Calc Est GFR (MDRD) Af Amer Est GFR (MDRD) Non-Af BUN/Creatinine Ratio Glucose Calcium Urine Color Yellow Urine Clarity Sl. Cloudy Urine pH 7.0 Ur Specific [place] 1.010 Urine Protein 15 H Urine Glucose (UA) 1000 H Urine Ketones Negative Urine Occult Blood 50 H Urine Nitrite Negative Urine Bilirubin Negative Urine Urobilinogen Normal Ur Leukocyte Esterase 25 H Urine RBC 0-5 SEEN Urine WBC 10-25 SEEN Ur Squamous Epith Cells 0-5 SEEN Urine Bacteria 0 SEEN Urine Mucus 0 SEEN Acetone Level NEGATIVE POC Glucose 372 H ABG Data ABG results: ABG 01/07/23 14:15 Specimen Type SATHYA VBG pH 7.36 VBG pO2 37 VBG HCO3 32 H VBG Total CO2 34 H VBG O2 Sat (Calc) 66 VBG Base Excess 7 H POC Mix VBG pCO2 Pt Tmp 56.7 H Additional Tests and Interventions Additional Tests or Interventions: Patient was given IV fluids. Patient was given a dose of subcutaneous insulin here. Patient was advised of her findings. Patient was instructed to continue to monitor her blood sugars at home. Patient was instructed to use her insulin as previously prescribed. Patient was instructed to follow-up with her primary care physician in 5 to 7 days. Patient understood and was agreeable with the plan. All questions were answered. Discharge Plan Triage Chief Complaint: Hyperglycemia ED Provider: [facility] Dx/Rx/DC Orders Clinical Impression: Hyperglycemia, Morbid obesity with BMI of 45.0-49.9, adult Instructions: ED Diabetic Hyperglycemia Prescriptions: No Action albuterol sulfate 2.5 mg /3 mL (0.083 %) solution for nebulization 2.5 mg INHALATION Q4H PRN PRN (Reason: Sob &/Or Wheezing) lisinopril 2.5 mg tablet 2.5 mg PO DAILY fluoxetine 40 MG capsule 40 mg PO DAILY Label Comments: TAKE 1 CAPSULE BY MOUTH EVERY DAY atorvastatin 20 MG tablet 20 mg PO QHS levothyroxine 200 MCG tablet 350 mcg PO DAILY acetaminophen 325 MG tablet 650 mg PO Q6H PRN PRN (Reason: Pain Score 1-10/Temp > 100.7 F) 0RF insulin degludec 200 UNIT/ML insulin pen 100 unit SQ DAILY Label Comments: INJECT 110 UNITS SUBCUTANEOUSLY EVERY MORNING. docusate sodium 100 MG capsule 100 mg PO DAILY PRN (Reason: Constipation) metformin 500 mg tablet extended release 24 hr 1,000 mg PO DAILY Label Comments: TAKE 2 TABLETS BY MOUTH TWICE A DAY insulin lispro 100 UNIT/ML insulin pen 46 unit SC TIDAC Protocol: 5. Sliding Scale Insulin High Dosing Condition: 150-209 mg/dl = 3 units Condition: 210-259 mg/dl = 6 units Condition: 260-324 mg/dl = 9 units Condition: 325-374 mg/dl = 12 units Condition: 375-409 mg/dl = 14 units Condition: 410-449 mg/dl = 16 units Condition: Greater than 449 call physician Protocol Text: - Use for Total Daily Dose of Insulin 81-120 units - Very insulin resistant or septic patients HIGH DOSING ALGORITHM Rx Instructions: 46 base plus sliding scale cefdinir 300 mg capsule 300 mg PO BID Qty: 10 0RF clindamycin HCl [Cleocin HCl] 300 mg capsule 300 mg PO Q6H Qty: 40 0RF hydrocodone-acetaminophen [hydrocodone-acetaminophen] 5-325 mg tablet 1 tab PO Q4H PRN PRN (Reason: Pain) 2 Days Qty: 15 0RF ondansetron 4 mg tablet,disintegrating 4 mg PO Q8H PRN (Reason: nausea and vomiting) Qty: 10 0RF phenazopyridine [Pyridium] 200 mg tablet 200 mg PO BID PRN PRN (Reason: Pain) Qty: 10 0RF cephalexin [cephalexin] 500 mg capsule 500 mg PO Q12 Qty: 10 0RF Primary Care Provider: Tj Douglass Referrals: Tj Douglass MD [Primary Care Provider] - 3-5 Days Disposition Disposition: Home, Self Care Discharge Date/Time: 01/07/23 15:48
[2023-01-07] MEDS: Insulin Lispro 100 UNIT/ML INSULN.PEN 10 UNIT SC (15:29)
[2023-01-07 15:42] LABS: Bedside Glucose 372 mg/dL (74-106)
== END 2023-01-07 15:48 | disposition home or self-care (01) ==
PROVIDERS: Emergency Provider Emergency Medicine; PCP Family Medicine; Visit Provider Emergency Medicine
DX: E11.65 Type 2 diabetes mellitus with hyperglycemia (principal); E66.01 Morbid (severe) obesity due to excess calories; Z68.42 Body mass index [BMI] 45.0-49.9, adult; Z79.4 Long term (current) use of insulin; E78.5 Hyperlipidemia, unspecified; I10 Essential (primary) hypertension; Z79.899 Other long term (current) drug therapy; Z87.891 Personal history of nicotine dependence
CPT/HCPCS: 80048; 81001; 82009; 82803; 82962; 85025; 96360; 96361; 99283; J7030; A4216

== ENCOUNTER 2023-01-20 17:41 | Emergency (ER) | payer OTHER, SELFPAY ==
[2023-01-20 17:42] VITALS: BP 112/66; PULSE 102; RESP 20; TEMP 36.1; O2SAT 95; BMI 49.0
--- NOTE | 2023-01-20 18:08 | EKG12_ITS ---
Test Reason : GEN ILLNESS Blood Pressure : / mmHG Vent. Rate : 092 BPM Atrial Rate : 092 BPM P-R Int : 124 ms QRS Dur : 124 ms QT Int : 384 ms P-R-T Axes : 053 -60 029 degrees QTc Int : 474 ms Normal sinus rhythm Right bundle branch block Left anterior fascicular block Bifascicular block Voltage criteria for left ventricular hypertrophy Abnormal ECG Confirmed by YAN BRODERICK, CONNIE ([id number]), video effects editor BRITTANY NGUYEN ([id number]) on 01/21/2023 12:32:41 PM Referred By: MICK Confirmed By:CONNIE HEREDIA MD
--- NOTE | 2023-01-20 18:09 | CT_ITS ---
STUDY: CT BRAIN WITHOUT CONTRAST REASON FOR EXAM: Female, 57 years old. headache RADIATION DOSAGE (If Supplied By Facility): CTDIvol = ( 44.99 ) mGy, DLP = ( 779.24 ) mGycm TECHNIQUE: Transaxial CT imaging of the brain was performed without administration of intravenous contrast material. Individualized dose optimization techniques were used for this CT. COMPARISON: 08/12/2022 FINDINGS: Normal soft tissue structures. Normal calvarium. Normal size ventricles and extra-axial spaces for the patient''s age. Normal white matter tracts of the cerebral hemispheres. Normal basal ganglia and thalami. Normal brainstem. Normal cerebellum. There is no intracranial hemorrhage. There are no findings of an acute ischemic infarction. Normal visualized paranasal sinuses. CT/Brain/Head without Contrast IMPRESSION: No definite acute or significant abnormality seen. Electronically Signed: Jorge Kilgore MD at 19:15 EDT ,
--- NOTE | 2023-01-20 18:29 | RAD_ITS ---
STUDY: X-RAY CHEST REASON FOR EXAM: Female, 57 years old. sob TECHNIQUE: Single AP portable view of the chest. COMPARISON: 10/25/2022. FINDINGS: Incomplete expansion of the lungs. Minimal congestion/edema. No focal infiltrates or effusions are seen. There is borderline cardiomegaly. Normal mediastinum and leigh. Normal visualized pulmonary arteries. Normal visualized aortic arch and descending thoracic aorta. Normal visualized thoracic spine. Normal visualized ribs, clavicles, and shoulders. There is no demonstrated abnormality of the visualized soft tissue structures of the upper abdomen. RAD/Chest 1 View (Portable) IMPRESSION: Incomplete expansion of the lungs with minimal congestion/edema. Electronically Signed: Jorge Kilgore MD at 18:57 EDT ,
[2023-01-20 18:30] LABS: Absolute Lymphocyte Count 2.86 X10^3/uL (0.83-4.51); Absolute Neutrophil Count 6.9 X10^3/uL (2.0-7.7); Basophil# 0.09 X10^3/uL; Basophil% 0.8 % (0-1); Eosinophil# 0.22 X10^3/uL; Hematocrit 40.3 % (37-47); Hemoglobin 12.8 g/dL (12.0-15.0); Lymphocyte # 2.86 X10^3/ul (0.83-4.51); Lymphocyte % 26.6 % (19-41); Mean Corp Hgb Conc 31.8 g/dL (32-36); Mean Corpuscular Hgb 26.2 pg (27.0-32.0); Mean Corpuscular Volume 82.4 fL (81-99); Mean Platelet Vol. 10.3 fl (6.2-12.0); Monocyte# 0.58 X10^3/uL; Monocyte% 5.4 % (0-10); NRBC Flagged by Analyzer 0 % (0-5); Neutrophil # 6.93 X10^3/uL (2.7-7.7); Neutrophil % 64.6 % (47-70); Platelet Count 236 K/mm3 (150-450); RBC Distribution Width CV 14.7 % (11.6-14.6); RBC Distribution Width SD 43.8 fl (35.1-43.9); Red Blood Count 4.89 M/mm3 (4.2-5.4); White Blood Count 10.7 K/mm3 (4.4-11.0)
--- NOTE | 2023-01-20 18:41 | EX.ED.DYSGE1 ---
HPI <DAVID Bravo - Last Filed: 01/20/23 21:00> History of Present Illness Chief Complaint: General Illness Narrative Narrative: Patient is a 57-year-old female with history of obesity, diabetes, hypothyroidism who presents to the emergency department 1 day of fatigue, feeling of bilateral arm swelling, facial swelling, feeling of overall fatigue. Patient denies any fever or chills. Patient denies any cough. Patient states that both of her arms felt heavy, she does note that she has extremity swelling however today was worse. She also states that she is been getting headaches off and on for multiple months. She denies any difficulty speaking, denies any weakness to upper or lower extremities. She denies any known injury. PFS <DAVID Bravo - Last Filed: 01/20/23 21:00> [facility] Medical History Anemia Arthritis Back pain Bloody stool Depression Diabetes History of frequent headaches Hyperlipidemia Hypertension Hypothyroid Hypothyroidism Morbid obesity Noncompliance with medication regimen Thyroid disease Home Medications albuterol sulfate 2.5 mg/3 mL (0.083 %) solution for nebulization 2.5 mg inhalation Q4H PRN PRN Sob &/Or Wheezing 04/11/18 [History Last Taken Unknown] lisinopril 2.5 mg tablet 2.5 mg PO DAILY BP 04/11/18 [History Last Taken 10/06/19] fluoxetine 40 mg capsule 40 mg PO DAILY DEPRESSION 02/12/19 [History Last Taken 10/06/19] atorvastatin 20 mg tablet 20 mg PO QHS CHOLESTEROL 10/06/19 [History Last Taken 10/05/19] levothyroxine 200 mcg tablet 350 mcg PO DAILY THYROID 10/06/19 [History Last Taken 10/06/19] acetaminophen 325 mg tablet 650 mg (2 x 325 mg) PO Q6H PRN PRN Pain Score 1-10/Temp > 100.7 F 10/09/19 [Rx Last Taken Unknown] insulin degludec 200 unit/mL (3 mL) subcutaneous pen 100 unit SQ DAILY dm 06/13/20 [History Last Taken Unknown] docusate sodium 100 mg capsule 100 mg PO DAILY PRN Constipation 09/07/20 [History Last Taken Unknown] metformin 500 mg tablet,extended release 24 hr 1,000 mg PO DAILY dm 03/29/21 [History Last Taken Unknown] insulin lispro 100 unit/mL subcutaneous pen 46 unit SC TIDAC dm 07/21/21 [History Last Taken Unknown] cefdinir 300 mg capsule 300 mg PO BID #10 caps 02/11/22 [Rx Last Taken Unknown] clindamycin HCl 300 mg capsule (Cleocin HCl) 300 mg PO Q6H #40 CAPSULES 06/08/22 [Rx Last Taken Unknown] hydrocodone-acetaminophen 5-325mg 5mg-325mg 1 tab PO Q4H PRN PRN Pain 2 days #15 TABLETS 06/08/22 [Rx Last Taken Unknown] ondansetron 4 mg disintegrating tablet 4 mg PO Q8H PRN nausea and vomiting #10 tabs 08/12/22 [Rx Last Taken Unknown] cephalexin 500 mg capsule 500 mg PO Q12 #10 CAPSULES 10/10/22 [Rx Last Taken Unknown] phenazopyridine 200 mg tablet (Pyridium) 200 mg PO BID PRN PRN Pain #10 tabs 10/10/22 [Rx Last Taken Unknown] Allergy/AdvReac Type Severity Reaction Status Date / Time codeine Allergy Angioedema Verified 01/20/23 17:42 nitrofurantoin Allergy edema Verified 01/20/23 17:42 Penicillins Allergy Rash Verified 01/20/23 17:42 Sulfa (Sulfonamide Allergy Rash Verified 01/20/23 17:42 Antibiotics) sulfamethoxazole [Bactrim] Allergy Unknown Verified 01/20/23 17:42 trimethoprim [Bactrim] Allergy Unknown Verified 01/20/23 17:42 Family History Other Cancer Surgical History Hx of cholecystectomy Social History household members: none Smoking Status: Former smoker alcohol intake: current details: Patient states she does not drink however nurse documents and prior note do substance use type: does not use ROS <DAVID Bravo - Last Filed: 01/20/23 21:00> ROS ED ROS Narrative Constitutional: Negative for fever, chills, weight loss. Positive generalized weakness Eyes: Negative for vision loss, vision change, double vision ENT: Negative for any sore throat, ear pain, congestion Cardiovascular: Negative for any chest pain, tightness, palpitations Respiratory: Negative for any cough, sputum production, hemoptysis, dyspnea, dyspnea on exertion, orthopnea Gastrointestinal: Negative for any abdominal pain, nausea, vomiting, diarrhea, constipation, blood in stool, blood in vomit : Negative for any urinary frequency, dysuria, retention, blood in urine Muscle skeletal: Negative for any muscle joint pain, stiffness, myalgias, arthralgias, neck pain, back pain. Positive for bilateral arm heaviness Neurological: Negative for any syncope, numbness or tingling, dizziness. Positive for intermittent headaches Skin: Negative for any rashes, lumps, itching, abrasions, lacerations Psychiatric: Negative for any depression, anxiety, stress, suicidal ideation, homicidal ideation Hematologic: Negative for any easy bruising, excessive bruising, easy bleeding Allergies: Negative for any eczema, hives, rash EXAM <DAVID Bravo - Last Filed: 01/20/23 21:00> Physical Exam Narrative Exam Narrative: Vital signs reviewed. HEET: Head normocephalic atraumatic, TMs clear bilaterally. Posterior pharynx is clear, moist mucous membranes. Nares clear bilaterally. Pupils are equal round reactive to light, negative for any hemotympanum, negative for any septal hematoma. Neck: Supple with no lymphadenopathy or tenderness. No signs of meningismus, negative jolt sign. Cardiac: Regular rate and rhythm no murmurs gallops or rubs, equal peripheral pulses bilaterally. Respiratory: Lungs clear to auscultation bilaterally. No chest tenderness. Abdomen: Soft, nontender, nondistended. No abdominal bruit or pulsatile masses. No hepatosplenomegaly Extremities: no signs of gross trauma or deformity. Active full range of motion of all extremities. There is slight lower leg edema however this appears chronic Neuro: Cranial nerves II through XII intact, no focal neurological deficits. NIH stroke score 0 Skin: Clean dry and intact with no rash, purpura, petechiae, vesicles or pustules. Backs/flank: No CVA tenderness, no midline spinal tenderness, no deformity. Psych: Normal mood and affect. No SI, HI or acute psychosis. Const Vital Signs: 01/20/23 17:42 01/20/23 17:47 01/20/23 19:41 Temperature 96.9 F L Temperature Source Temporal Pulse Rate 102 H Respiratory Rate 20 H 20 H Respiratory Effort Short of Breath Respiratory Pattern Normal Blood Pressure 112/66 Blood Pressure Mean 81 Pulse Ox 95 Oxygen Delivery Method Room Air Positive well nourished and well developed General Appearance ED: well developed <Dr. Pranav Ward MD - Last Filed: 01/20/23 22:57> Physical Exam Const Vital Signs: 01/20/23 17:42 01/20/23 17:47 01/20/23 19:41 Temperature 96.9 F L Temperature Source Temporal Pulse Rate 102 H Respiratory Rate 20 H 20 H Respiratory Effort Short of Breath Respiratory Pattern Normal Blood Pressure 112/66 Blood Pressure Mean 81 Pulse Ox 95 Oxygen Delivery Method Room Air MDM <DAVID Bravo - Last Filed: 01/20/23 21:00> MDM Lab Data Labs: Laboratory Results - last 24 hr 01/20/23 01/20/23 18:25 18:56 WBC 10.7 RBC 4.89 Hgb 12.8 Hct 40.3 MCV 82.4 MCH 26.2 L MCHC 31.8 L RDW Std Deviation 43.8 RDW Coeff of [place] 14.7 H Plt Count 236 MPV 10.3 Immature Gran % (Auto) 0.600 Neut % (Auto) 64.6 Lymph % (Auto) 26.6 [place] % (Auto) 5.4 Eos % (Auto) 2.0 Baso % (Auto) 0.8 Absolute Neuts (auto) 6.9 Absolute Lymphs (auto) 2.86 Nucleated RBC % 0 Sodium 132 L Potassium 4.9 Chloride 99 Carbon Dioxide 30.0 Anion Gap 3 L BUN 20 H Creatinine 1.21 H Estim Creat Clear Calc 39.17 Est GFR (MDRD) Af Amer 59 L Est GFR (MDRD) Non-Af 49 L BUN/Creatinine Ratio 16.5 Glucose 148 H Calcium 9.2 B-Natriuretic Peptide 6.0 TSH 4.15 H Urine Color Yellow Urine Clarity Cloudy Urine pH 5.0 Ur Specific [place] 1.020 Urine Protein 100 H Urine Glucose (UA) Normal Urine Ketones 5 H Urine Occult Blood 250 H Urine Nitrite Negative Urine Bilirubin 1 H Urine Urobilinogen 4 H Ur Leukocyte Esterase 500 H Urine RBC 25-50 SEEN Urine WBC 50-100 SEEN Ur Squamous Epith Cells 0-5 SEEN Amorphous Sediment 1+ URATE Urine Bacteria 0 SEEN Urine Mucus 0 SEEN Urine Yeast RARE Radiography Diagnostic Testing: Clinical Impression(s) from Imaging Studies Brain CT 01/20/23 18:09 IMPRESSION: No definite acute or significant abnormality seen. Electronically Signed: Jorge Kilgore MD at 19:15 EDT , Chest X-Ray 01/20/23 18:29 IMPRESSION: Incomplete expansion of the lungs with minimal congestion/edema. Electronically Signed: Jorge Kilgore MD at 18:57 EDT , Treatment and Re-Evaluation :: Patient appears to be in no distress, patient's vital signs are stable. Patient presents the emergency department with multiple complaints. Patient states that her arms are heavy, she been having headaches for multiple months, she feels generalized fatigue. PatientPatient's laboratory values show a normal CBC, patient's chemistries show a sodium 132, creatinine of 1.2,, blood glucose 148, patient's TSH was 4.15, this is improved from early October that was 0.34, patient was in January 2022 53.2. Patient did receive a CT scan of the brain which showed no acute process, negative for any skull fracture, intracranial bleeding. Patient chest x-ray showed incomplete expansion of the lungs with minimal congestion/edema. Patient is not hypoxic. Secondary to the patient edema, patient will have a proBNP drawn. <Dr. Pranav Ward MD - Last Filed: 01/20/23 22:57> [facility] MDM Narrative Medical decision making narrative: I have personally performed a face to face assessment of the patient and have reviewed the LAZARO Note. I performed a substantive portion of the visit including all aspects of the following. My christianson findings include: History is remarkable for multiple symptoms including edema, 20 pound weight gain, fatigue, generalized weakness this. She also complains of bilateral arm heaviness and headaches for multiple months. She denies fever, chills night sweats. She denies double vision, blurred vision or loss of vision. Denies ringing or ears or decreased hearing. She denies chest pain or shortness of breath. She denies vomiting or diarrhea. She denies black or maroon-colored stool. She denies dysuria, frequency, urgency or hematuria She states she does not normally get headaches. There is no family history of subarachnoid hemorrhage. She denies rhinorrhea, congestion or postnasal drainage. She denies neck pain or neck stiffness. She denies photophobia or sonophobia. Exam is patient is a 57-year-old woman who appears in no obvious distress. She does have exophthalmos's. Her BMI is 49.1. Lungs are clear to auscultation. Heart is regular. Rate is normal. Abdomen is soft and nontender. Bowel sounds are diminished. Patient has nonpitting edema consistent with thyroid disease. Her thyroid medicine has been recently adjusted. Medical Decision Making we will obtain UA, CBC, BMP to assess for urinary tract infection, anemia, hypothyroidism. Other additions or changes: Patient's TSH is elevated. White count is up. Comprehensive metabolic panel reveals slight elevation in creatinine with a GFR of 49 urine reveals mature and prior area without bacteruria. Since she is asymptomatic urine culture was sent. She was not treated with antibiotics. She has allergies to nitrofurantoin, penicillin, sulfa. Lab Data Attestation: I reviewed the patient's lab results. Labs: Laboratory Results - last 24 hr 01/20/23 01/20/23 18:25 18:56 WBC 10.7 RBC 4.89 Hgb 12.8 Hct 40.3 MCV 82.4 MCH 26.2 L MCHC 31.8 L RDW Std Deviation 43.8 RDW Coeff of [place] 14.7 H Plt Count 236 MPV 10.3 Immature Gran % (Auto) 0.600 Neut % (Auto) 64.6 Lymph % (Auto) 26.6 [place] % (Auto) 5.4 Eos % (Auto) 2.0 Baso % (Auto) 0.8 Absolute Neuts (auto) 6.9 Absolute Lymphs (auto) 2.86 Nucleated RBC % 0 Sodium 132 L Potassium 4.9 Chloride 99 Carbon Dioxide 30.0 Anion Gap 3 L BUN 20 H Creatinine 1.21 H Estim Creat Clear Calc 39.17 Est GFR (MDRD) Af Amer 59 L Est GFR (MDRD) Non-Af 49 L BUN/Creatinine Ratio 16.5 Glucose 148 H Calcium 9.2 B-Natriuretic Peptide 6.0 TSH 4.15 H Urine Color Yellow Urine Clarity Cloudy Urine pH 5.0 Ur Specific [place] 1.020 Urine Protein 100 H Urine Glucose (UA) Normal Urine Ketones 5 H Urine Occult Blood 250 H Urine Nitrite Negative Urine Bilirubin 1 H Urine Urobilinogen 4 H Ur Leukocyte Esterase 500 H Urine RBC 25-50 SEEN Urine WBC 50-100 SEEN Ur Squamous Epith Cells 0-5 SEEN Amorphous Sediment 1+ URATE Urine Bacteria 0 SEEN Urine Mucus 0 SEEN Urine Yeast RARE Radiography Chest X-Ray - ED: Read by ED Physician (Chest x-ray independent reviewed interpreted by me as negative for any acute findings. The film is suboptimal because only 8 ribs are seen. Radiologist raises concern for minimal congestion/edema. With a BNP is 6 this is highly unlikely.) Diagnostic Testing: Clinical Impression(s) from Imaging Studies Brain CT 01/20/23 18:09 IMPRESSION: No definite acute or significant abnormality seen. Electronically Signed: Jorge Kilgore MD at 19:15 EDT , Chest X-Ray 01/20/23 18:29 IMPRESSION: Incomplete expansion of the lungs with minimal congestion/edema. Electronically Signed: Jorge Kilgore MD at 18:57 EDT , EKG Initial EKG: Attestation: I personally reviewed and interpreted this EKG as follows: Interpretation: Sinus Rhythm Comments: Rate is 92. There is evidence of right bundle branch block and left anterior fascicular block. CO interval is 124 ms. Cures duration 124 ms. QT duration 384 ms. There is evidence of LVH by voltage criteria. Discharge Plan Triage Chief Complaint: General Illness ED Midlevel Provider: Joel Mendoza ED Provider: Pranav Ward Dx/Rx/DC Orders Clinical Impression: Intractable headache, Generalized weakness, Edema, Hypothyroidism Instructions: ED Lymphedema, ED Pain, Acute, Uncertain Cause Prescriptions: No Action albuterol sulfate 2.5 mg /3 mL (0.083 %) solution for nebulization 2.5 mg INHALATION Q4H PRN PRN (Reason: Sob &/Or Wheezing) lisinopril 2.5 mg tablet 2.5 mg PO DAILY fluoxetine 40 MG capsule 40 mg PO DAILY Patient Comments: TAKE 1 CAPSULE BY MOUTH EVERY DAY atorvastatin 20 MG tablet 20 mg PO QHS levothyroxine 200 MCG tablet 350 mcg PO DAILY acetaminophen 325 MG tablet 650 mg PO Q6H PRN PRN (Reason: Pain Score 1-10/Temp > 100.7 F) 0RF insulin degludec 200 UNIT/ML insulin pen 100 unit SQ DAILY Patient Comments: INJECT 110 UNITS SUBCUTANEOUSLY EVERY MORNING. docusate sodium 100 MG capsule 100 mg PO DAILY PRN (Reason: Constipation) metformin 500 mg tablet extended release 24 hr 1,000 mg PO DAILY Patient Comments: TAKE 2 TABLETS BY MOUTH TWICE A DAY insulin lispro 100 UNIT/ML insulin pen 46 unit SC TIDAC Protocol: 5. Sliding Scale Insulin High Dosing Condition: 150-209 mg/dl = 3 units Condition: 210-259 mg/dl = 6 units Condition: 260-324 mg/dl = 9 units Condition: 325-374 mg/dl = 12 units Condition: 375-409 mg/dl = 14 units Condition: 410-449 mg/dl = 16 units Condition: Greater than 449 call physician Protocol Text: - Use for Total Daily Dose of Insulin 81-120 units - Very insulin resistant or septic patients HIGH DOSING ALGORITHM Rx Instructions: 46 base plus sliding scale cefdinir 300 mg capsule 300 mg PO BID Qty: 10 0RF clindamycin HCl [Cleocin HCl] 300 mg capsule 300 mg PO Q6H Qty: 40 0RF hydrocodone-acetaminophen [hydrocodone-acetaminophen] 5-325 mg tablet 1 tab PO Q4H PRN PRN (Reason: Pain) 2 Days Qty: 15 0RF ondansetron 4 mg tablet,disintegrating 4 mg PO Q8H PRN (Reason: nausea and vomiting) Qty: 10 0RF phenazopyridine [Pyridium] 200 mg tablet 200 mg PO BID PRN PRN (Reason: Pain) Qty: 10 0RF cephalexin [cephalexin] 500 mg capsule 500 mg PO Q12 Qty: 10 0RF Primary Care Provider: Tj Douglass Referrals: Tj Douglass MD [Primary Care Provider] - 1 Week if not improving Disposition Disposition: Home, Self Care
[2023-01-20 19:00] LABS: Anion Gap 3 (5-15); BUN 20 mg/dL (7-18); BUN/Creat Ratio 16.5 RATIO (10-20); Calcium,Total 9.2 mg/dL (8.5-10.1); Chloride 99 mmol/L (98-107); Creatinine, Serum 1.21 mg/dL (0.55-1.02); EST Glomerular Filtration Rate 49 mL/min (>60); Est Glom Filt Rate - Afr Amer 59 mL/min (>60); Estimated Creatinine Clearance 39.17 ml/min; Glucose 148 mg/dL (74-106); Potassium 4.9 mmol/L (3.5-5.1); Sodium Level 132 mmol/L (136-145); Thyroid Stim Hormone (TSH) 4.15 uIU/mL (0.358-3.74)
[2023-01-20 19:01] LABS: Bacteria 0 SEEN /hpf (None Seen); Mucous, Urine 0 SEEN /hpf (<or=2+)
[2023-01-20 19:05] LABS: Color, Urine Yellow (Yellow); Glucose, Dipstick Normal (Normal); Ketone-Dipstick 5 mg/dl (Negative); Leukocyte Esterase-Dipstick 500 /ul (Negative); Nitrite-Dipstick Negative (Negative); Occult Blood-Urine 250 /ul (Negative); Protein-Dipstick 100 mg/dl (Negative); Urine Clarity Cloudy (Clear); Urine Urobilinogen 4 mg/dl (Normal)
[2023-01-20 19:09] LABS: Urine Bilirubin Dipstick 1 mg/dL (Negative)
[2023-01-20 19:12] LABS: White Blood Cells 50-100 SEEN /hpf (0-5)
[2023-01-20 19:13] LABS: Amorphous Sediment 1+ URATE; Red Blood Cells-Urine 25-50 SEEN /hpf (0-5); Squamous Epithelial Cells - UA 0-5 SEEN /hpf (5-10); Yeast-Urine RARE /hpf (None Seen)
[2023-01-20 19:41] VITALS: RESP 20
[2023-01-20] MEDS: Cefdinir 300 MG Capsule PO (21:43)
[2023-01-20 23:17] VITALS: BP 114/69; PULSE 72; RESP 18; O2SAT 99
== END 2023-01-20 23:21 | disposition home or self-care (01) ==
PROVIDERS: Nurse Practitioner; Emergency Provider Emergency Medicine; PCP Family Medicine; Visit Provider Emergency Medicine
DX: R51.9 Headache, unspecified (principal); E66.01 Morbid (severe) obesity due to excess calories; Z68.42 Body mass index [BMI] 45.0-49.9, adult; R53.1 Weakness; R60.9 Edema, unspecified; E03.9 Hypothyroidism, unspecified; Z87.891 Personal history of nicotine dependence
CPT/HCPCS: 70450; 71045; 80048; 81001; 83880; 84443; 85025; 87086; 87088; 93005; 99282

== ENCOUNTER → 2023-04-17 | Outpatient (CLI) | payer OTHER, SELFPAY ==
[2023-04-17 11:23] LABS: Vitamin D,25 Hydroxy 22.2 ng/mL
[2023-04-17 11:34] LABS: Cholesterol 135 mg/dL (200); High Density Lipoprotein 28 mg/dL; T4 Free Direct 0.75 ng/dL (0.76-1.46); Thyroid Stim Hormone (TSH) 3.79 uIU/mL (0.358-3.74); Triglycerides 314 mg/dL; Very Low Density Lipoprotein 63 mg/dL (5-40)
== END | disposition home or self-care (01) ==
LOC: LAB 10:41
PROVIDERS: PCP Family Medicine; Referring Provider Nurse Practitioner Family; Visit Provider Nurse Practitioner Family
DX: E03.9 Hypothyroidism, unspecified (principal); E11.9 Type 2 diabetes mellitus without complications
CPT/HCPCS: 36415; 80061; 82306; 84439; 84443

== ENCOUNTER 2023-04-18 09:45 | Inpatient (IN) | payer OTHER, SELFPAY ==
[2023-04-18] VITALS (8 sets, daily range): BP systolic 111–150; BP diastolic 54–80; PULSE 83–105; RESP 14–20; TEMP 36.3–37; O2SAT 92–96; BMI 49.4; BMI 48.4
--- NOTE | 2023-04-18 10:42 | CT_ITS ---
STUDY: CT ABDOMEN AND PELVIS WITH CONTRAST REASON FOR EXAM: Female, 57 years old. RUQ abd pain. Chronic renal disease. RADIATION DOSAGE (If Supplied By Facility): CTDIvol = ( 15.42 ) mGy, DLP = ( 1259.75 ) mGycm TECHNIQUE: Transaxial images were obtained from the dome of the diaphragm to the symphysis pubis without oral contrast. IV 100mL Isovue-300 was administered. Sagittal and coronal images were reconstructed. Individualized dose optimization techniques were used for this CT. COMPARISON: Comparison is made with prior study dated August 12, 2022. FINDINGS: The visualized lung bases are unremarkable. Coronary artery calcification. There is hepatomegaly with diffuse hepatic enlargement. Minimal degree of increased markings are seen in the inferior aspect of the liver in the region of the bilateral renal fat. There are surgical clips in the gallbladder fossa consistent with a prior cholecystectomy. There is mild splenomegaly. Normal pancreas. Normal bilateral adrenal glands. Normal right kidney. Normal left kidney. Punctate calculus in the lower pole calyx of the left kidney. Normal visualized stomach. Normal small intestine. There are multiple colonic diverticula consistent with diverticulosis. There is non-visualization of the appendix. Normal abdominal aorta. Normal inferior vena cava. Normal retroperitoneum. A tiny air bubble is seen along the anterior aspect of the urinary bladder. This may be related with prior urinary catheter placement. IUD is seen within the uterus. Stable dense calcification in the right adnexa. There is a small umbilical hernia containing fat. Normal osseous structures. CT/Abdomen/Pelvis W IV Cont ONLY IMPRESSION: Hepatosplenomegaly. Minimal increased markings at the right hepatorenal space. Proximal focal thickening of the hepatic flexure. Electronically Signed: Moy Rivera MD at 12:33 EDT ,
--- NOTE | 2023-04-18 10:42 | RAD_ITS ---
STUDY: X-RAY CHEST REASON FOR EXAM: Female, 57 years old. Cough, right rib pain TECHNIQUE: PA and lateral views of the chest. COMPARISON: Comparison is made with prior study dated January 20, 2023. FINDINGS: Vascular congestion and mild degree of CHF. Minimal thickening of the right minor fissure and left major fissure suggests a small amount of fluid. There is mild cardiac enlargement. Normal mediastinum and leigh. Normal visualized pulmonary arteries. Normal visualized aortic arch and descending thoracic aorta. There are degenerative changes of the visualized thoracic spine. Normal visualized ribs, clavicles, and shoulders. There is no demonstrated abnormality of the visualized soft tissue structures of the upper abdomen. RAD/Chest PA and Lateral IMPRESSION: Vascular congestion and CHF. Electronically Signed: Moy Rivera MD at 12:36 EDT ,
[2023-04-18 10:51] LABS: Mucous, Urine 0 SEEN /hpf (<or=2+)
[2023-04-18 10:52] LABS: Color, Urine Yellow (Yellow); Glucose, Dipstick 1000 mg/dl (Normal); Ketone-Dipstick Negative (Negative); Leukocyte Esterase-Dipstick 500 /ul (Negative); Nitrite-Dipstick Negative (Negative); Occult Blood-Urine 150 /ul (Negative); Protein-Dipstick 30 mg/dl (Negative); Specific Gravity, Urine 1.015 (1.002-1.030); Urine Bilirubin Dipstick Negative (Negative); Urine Clarity Cloudy (Clear); Urine Urobilinogen 1 mg/dl (Normal)
[2023-04-18 10:59] LABS: Absolute Lymphocyte Count 1.82 X10^3/uL (0.83-4.51); Absolute Neutrophil Count 6.8 X10^3/uL (2.0-7.7); Basophil# 0.08 X10^3/uL; Basophil% 0.8 % (0-1); Eosinophil# 0.26 X10^3/uL; Eosinophils% 2.7 % (0-5); Hematocrit 41.4 % (37-47); Hemoglobin 12.9 g/dL (12.0-15.0); Lymphocyte # 1.82 X10^3/ul (0.83-4.51); Lymphocyte % 18.9 % (19-41); Mean Corp Hgb Conc 31.2 g/dL (32-36); Mean Corpuscular Hgb 26.5 pg (27.0-32.0); Mean Platelet Vol. 9.9 fl (6.2-12.0); Monocyte# 0.51 X10^3/uL; Monocyte% 5.3 % (0-10); NRBC Flagged by Analyzer 0 % (0-5); Neutrophil # 6.83 X10^3/uL (2.7-7.7); Neutrophil % 71.2 % (47-70); Platelet Count 206 K/mm3 (150-450); RBC Distribution Width CV 14.9 % (11.6-14.6); RBC Distribution Width SD 45.6 fl (35.1-43.9); Red Blood Count 4.87 M/mm3 (4.2-5.4); White Blood Count 9.6 K/mm3 (4.4-11.0)
[2023-04-18] MEDS: morphine 8 MG/ML Syringe IV (10:59)
[2023-04-18] MEDS: Ondansetron 4 MG/2 ML Vial IV (10:59)
[2023-04-18] MEDS: 0.9% Normal Saline (1000mL) 1,000 ML 125 ML IV (11:00)
[2023-04-18 11:07] LABS: Bacteria 2+ /hpf (None Seen); Red Blood Cells-Urine 10-25 SEEN /hpf (0-5); Squamous Epithelial Cells - UA 10-25 SEEN /hpf (5-10); White Blood Cells >100 SEEN /hpf (0-5)
--- NOTE | 2023-04-18 11:09 | EX.ED.DYSGE1 ---
HPI History of Present Illness Chief Complaint: Abd Pain Informant: patient Narrative Narrative: Patient is a 57-year-old female with history of CKD, neuropathy, type 2 diabetes mellitus, hypothyroidism and chronic leg edema presenting for right upper quadrant abdominal pain. Patient states she woke up with this pain around 2 AM. She describes it as constant and achy in nature. She denies any radiation. He feels bloated but denies any nausea or vomiting with it. Does have history of prior cholecystectomy. Does note that she has a chronic cough has been worsening over the past few days and does feel mildly short of breath. She is continued but intermittent leg swelling which is unchanged. Denies any fever, chills or URI symptoms. Denies any alcohol use. Notes her symptoms are worse with movement. Denies any falls or trauma. Denies any change in bowel habits denies any black or blood in her stool. Denies any urinary symptoms but notes she gets chronic UTIs as well as yeast infections. [facility] Medical History Anemia Arthritis Back pain Bloody stool Depression Diabetes History of frequent headaches Hyperlipidemia Hypertension Hypothyroid Hypothyroidism Morbid obesity Noncompliance with medication regimen Thyroid disease Home Medications albuterol sulfate 2.5 mg/3 mL (0.083 %) solution for nebulization 2.5 mg inhalation Q4H PRN PRN Sob &/Or Wheezing 04/11/18 [History Last Taken 04/17/23] lisinopril 2.5 mg tablet 2.5 mg PO DAILY BP 04/11/18 [History Last Taken 04/17/23] fluoxetine 40 mg capsule 40 mg PO DAILY DEPRESSION 02/12/19 [History Last Taken 04/17/23] atorvastatin 20 mg tablet 20 mg PO QHS CHOLESTEROL 10/06/19 [History Last Taken 04/17/23] metformin 500 mg tablet,extended release 24 hr 1,000 mg PO DAILY dm 03/29/21 [History Last Taken Unknown] ondansetron 4 mg disintegrating tablet 4 mg PO Q8H PRN nausea and vomiting #10 tabs 08/12/22 [Rx Last Taken Unknown] blood sugar diagnostic (VisualantTouch Verio test strips) #100 ea 02/18/23 [Rx Last Taken Unknown] blood-glucose meter,continuous ([employer] G7 Photographer Model) #1 ea 02/18/23 [Rx Last Taken Unknown] blood-glucose sensor (Dexcom G7 Sensor device) #3 ea 02/18/23 [Rx Last Taken Unknown] levothyroxine 200 mcg tablet 200 mcg PO DAILY #90 tabs 02/18/23 [Rx Last Taken 04/17/23] acetaminophen 500 mg tablet 500 - 1,000 mg PO Q6H PRN fever or pain 04/18/23 [History Last Taken 04/14/23] insulin aspart U-100 100 unit/mL (3 mL) subcutaneous pen (Novolog FlexPen U-100 Insulin aspart) 60 - 65 unit subcut TIDCM 04/18/23 [History Last Taken 04/17/23] insulin degludec 200 unit/mL (3 mL) subcutaneous pen (Tresiba FlexTouch U-200 insulin) 80 unit subcut DAILY 04/18/23 [History Last Taken 04/17/23] Allergy/AdvReac Type Severity Reaction Status Date / Time codeine Allergy Angioedema Verified 04/18/23 09:47 nitrofurantoin Allergy edema Verified 04/18/23 09:47 Penicillins Allergy Rash Verified 04/18/23 09:47 Sulfa (Sulfonamide Allergy Rash Verified 04/18/23 09:47 Antibiotics) sulfamethoxazole [Bactrim] Allergy Unknown Verified 04/18/23 09:47 trimethoprim [Bactrim] Allergy Unknown Verified 04/18/23 09:47 Family History Other Cancer Surgical History Hx of cholecystectomy Social History (Updated 04/18/23 @ 15:[address] Cecilia Villa DO) household members: none Smoking Status: Former smoker alcohol intake: current alcohol intake frequency: holidays/special occasions only substance use type: does not use ROS ROS ED Constitutional Constitutional ED: Denies chills or fever(s) ENT ENT ED: Denies ear pain, rhinorrhea or sore throat Cardiovascular Cardiovascular: Denies chest pain or palpitations Respiratory/Chest Respiratory/Chest: Reports cough and dyspnea Gastrointestinal Gastrointestinal: Reports abdominal pain; Denies constipation, diarrhea, nausea or vomiting Genitourinary Genitourinary ED: Denies dysuria or hematuria Musculoskeletal Musculoskeletal: Reports other Details: right flank pain ; Denies arthralgias or myalgias Integumentary Denies rash Neurologic Neurologic: Denies headache(s) or weakness Psychiatric Psychiatric: Denies anxiety Hematologic/Lymphatic Hematologic/Lymphatic: Denies anemia or easy bleeding EXAM Physical Exam Const Vital Signs: 04/18/23 09:47 04/18/23 13:31 Temperature 97.6 F L Temperature Source Temporal Pulse Rate 105 H 83 Respiratory Rate 14 16 Blood Pressure 150/80 H 116/54 L Blood Pressure Mean 103 74 Pulse Ox 96 92 Oxygen Delivery Method Room Air Room Air Positive well nourished, well developed and obese General Appearance ED: well developed and NAD Nutritional Appearance: obese HEENT Reports moist mucous membranes Eyes PERRL and EOMs intact bilaterally Neck supple and no JVD Chest Wall inspection of chest normal Chest Narrative: TTP to palpation over the right inferior ribs, no chest wall crepitus Resp normal respiratory effort and clear to auscultation bilaterally Cardio regular rate, regular rhythm and no murmurs GI normal to inspection, nondistended, normoactive bowel sounds Palpation: tender RUQ; Negative for guarding or mass Back/Spine General Back: CVA tenderness right Cervical Spine: Negative for cervical spine tenderness Thoracic Spine / Upper Back: Negative for thoracic spinal tenderness Lumbar Spine / Lower Back: Negative for lumbar spinal tenderness Extremity normal to inspection Extremity Narrative: 2+ pedal edema General Extremety ED: Yes edema General Extremity: edema Neuro oriented x3 Sensorium / Orientation: alert Motor Exam: Negative for general weakness Psych mental status grossly normal Skin no rashes or lesions noted and no wounds MDM MDM MDM Narrative Medical decision making narrative: Patient is evaluated for sudden onset of right upper quadrant abdominal pain. Feels more bloated than normal. Does have tenderness to palpation in that area. Differential includes choledocholithiasis that she is status post cholecystectomy, renal colic, colitis, gastritis, pancreatitis and referred pleuritic pain. Also noted to have significant lower extremity edema which she states is maybe a little worse than normal but does seem to oscillate on that's thoughts and she states she is been mildly short of breath. Patient does drop her oxygen was in the ER anywhere between 90% to 85% but then she comes back up. She is mildly tachycardic. She was given some IV fluids in the ER for concern of infectious etiology. Her CBC was largely normal, CMP remarkable for pseudohyponatremia with a sodium of 131 and a glucose of 430. She has a normal anion gap and her serum osmolality is 289 so she does not meet criteria for DKA or HHNK. Patient has poorly controlled diabetes I suspect that his glucose is closer to her baseline. Her urinalysis is consistent with infection with greater than 100 white blood cells and 2+ bacteria however patient is asymptomatic from that standpoint. We will send for culture. CT of the abdomen and pelvis does show mild increased markings at the hepatic flexure concerning for possible colitis. Case discussed with surgery on-call who also reviewed her CT and agrees is likely an early colitis. On further discussion with the patient she notes that she has had colitis in the past and was on medicine for it. Is not clear what kind of colitis she had. Her last colonoscopy was over 5 years ago and she states that has since retired. We will start the patient on Cipro and Flagyl. Prior urine cultures were pansensitive and Cipro should cover for UTI as well. Patient agreeable with admission from the respiratory standpoint. I will diurese her as she has peripheral edema, pulmonary vascular congestion her chest x-ray (reviewed by myself as well as radiology) and has hypoxia. Admitting physician, Dr. Villa, does request an ABG to look at her AA gradient for possible diagnosis of obesity hypoventilation syndrome. This is ordered. D-dimer was added on in the ER which is mildly elevated at 0.54 however normal per age-adjusted. Lab Data Attestation: I reviewed the patient's lab results. Labs: Laboratory Results - last 24 hr 04/18/23 04/18/23 04/18/23 10:45 10:54 13:38 WBC 9.6 RBC 4.87 Hgb 12.9 Hct 41.4 MCV 85.0 MCH 26.5 L MCHC 31.2 L RDW Std Deviation 45.6 H RDW Coeff of [place] 14.9 H Plt Count 206 MPV 9.9 Immature Gran % (Auto) 1.100 H Neut % (Auto) 71.2 H Lymph % (Auto) 18.9 L [place] % (Auto) 5.3 Eos % (Auto) 2.7 Baso % (Auto) 0.8 Absolute Neuts (auto) 6.8 Absolute Lymphs (auto) 1.82 Nucleated RBC % 0 Sodium 131 L Potassium 5.0 Chloride 97 L Carbon Dioxide 29.0 Anion Gap 5 BUN 10 Creatinine 0.90 Estim Creat Clear Calc 52.67 Est GFR (MDRD) Af Amer 83 Est GFR (MDRD) Non-Af 68 BUN/Creatinine Ratio 11.1 Glucose 430 H Calcium 9.2 Total Bilirubin 0.70 AST 48 H ALT 50 Alkaline Phosphatase 220 H B-Natriuretic Peptide 6.4 Total Protein 8.7 H Albumin 3.0 L Globulin 5.7 H Albumin/Globulin Ratio 0.5 L Lipase 26 Urine Color Yellow Urine Clarity Cloudy Urine pH 6.0 Ur Specific [place] 1.015 Urine Protein 30 H Urine Glucose (UA) 1000 H Urine Ketones Negative Urine Occult Blood 150 H Urine Nitrite Negative Urine Bilirubin Negative Urine Urobilinogen 1 H Ur Leukocyte Esterase 500 H Urine RBC 10-25 SEEN Urine WBC >100 SEEN Ur Squamous Epith Cells 10-25 SEEN Urine Bacteria 2+ Urine Mucus 0 SEEN POC Glucose 345 H Radiography Diagnostic Testing: Clinical Impression(s) from Imaging Studies Abdomen/Pelvis CT 04/18/23 10:42 IMPRESSION: Hepatosplenomegaly. Minimal increased markings at the right hepatorenal space. Proximal focal thickening of the hepatic flexure. Electronically Signed: Moy Rivera MD at 12:33 EDT , Chest X-Ray 04/18/23 10:42 IMPRESSION: Vascular congestion and CHF. Electronically Signed: Moy Rivera MD at 12:36 EDT , Rhythm Strip Rhythm Strip: Sinus Rhythm Rate: 89 Ectopy: None EKG Initial EKG: Attestation: I personally reviewed and interpreted this EKG as follows: Interpretation: Sinus Rhythm Comments: Normal sinus rhythm at a rate of 89 bpm Bifascicular block with right bundle branch block and left anterior fascicular block Minimal voltage criteria for LVH Left axis deviation Normal ST segments Compared to prior EKG on 01/20/2023, no acute changes Management Discussion w/another healthcare provider: Hospitalist and Cannoneer Discharge Plan Triage Chief Complaint: Abd Pain ED Provider: Candy Archuleta Dx/Rx/DC Orders Clinical Impression: Hypoxia, Colitis, Leg edema, Hyperglycemia Primary Care Provider: Tj Douglass Disposition Disposition: Acute Care Hospital [facility] Discharge Date/Time: 04/18/23 16:16
[2023-04-18 11:26] LABS: ALB/GLOB Ratio 0.5 RATIO (0.9-2.4); AST(SGOT) 48 U/L (15-37); Alanine Aminotransfer ALT/SGPT 50 U/L (13-56); Alkaline Phosphatase 220 U/L (45-117); Anion Gap 5 (5-15); BUN 10 mg/dL (7-18); BUN/Creat Ratio 11.1 RATIO (10-20); Calcium,Total 9.2 mg/dL (8.5-10.1); Chloride 97 mmol/L (98-107); EST Glomerular Filtration Rate 68 mL/min (>60); Est Glom Filt Rate - Afr Amer 83 mL/min (>60); Estimated Creatinine Clearance 52.67 ml/min; Globulin 5.7 g/dL (2.2-4.2); Glucose 430 mg/dL (74-106); Lipase 26 U/L (13-75); Protein, Total 8.7 g/dL (6.4-8.2); Sodium Level 131 mmol/L (136-145)
[2023-04-18 14:03] LABS: Bedside Glucose 345 mg/dL (74-106)
[2023-04-18 15:03] LABS: BNP,B-Type NATRIURETIC PEPTIDE 6.4 pg/mL (0-100)
[2023-04-18] MEDS: metroNIDAZOLE 500 MG Tablet PO ×2 (15:16→21:32)
[2023-04-18] MEDS: Ciprofloxacin 500 MG Tablet PO ×2 (15:16→21:32)
[2023-04-18] MEDS: Furosemide 40 MG/4 ML Vial IV (15:17)
--- NOTE | 2023-04-18 15:21 | HP.PCM.HOS_ITS ---
HPI - General General Date of Admission: 04/18/23 Date of Service: 04/18/23 Chief Complaint: abdominal pain HPI Narrative LEROY TYLER, is a 57 F who presented to the emergency department at [facility] due to abdominal pain that was diffuse but predominantly in the right upper quadrant. She reported she woke up with the pain around 2 AM and reported it was constant and achy in nature. Had no radiation and she reported that she feels bloated but has not had any vomiting. Mild nausea has been present intermittently. She has a history of cholecystectomy and also reports a chronic cough. She states that off may been worse over the last couple of days. She reports lower extremity edema that is chronic. She states is not really much different she seen her legs worse at times. Stools have been normal for her. She is not no hematemesis or hematochezia, no melena. She does have KODI and is noncompliant with her CPAP. When asked her if someone could bring it in from home she states it is packed away somewhere so she has not been compliant at all. She indicates she has chronic UTIs but does not follow with anybody for this. She denies any current dysuria or urinary frequency. She is not on chronic suppressive therapy. Vital signs on presentation demonstrated temperature of 97.6, heart rate 105, blood pressure 150/80, respiratory rate 14 oxygen saturations were 96% on room air. Her chemistry shows a sodium of 131 however her blood glucose level is 430 and when corrected her actual sodium is 139. Her serum bicarb is 29 her anion gap is normal despite her severely elevated glucose. BUN and creatinine are normal. Liver functions are fairly unremarkable. Lipase is 26. Her UA is consistent with infection the patient does report she has issues with chronic UTIs however she is asymptomatic at this point. EKG shows a right bundle branch block with poor R wave progression but no ST-T wave changes concerning for acute ischemia and intervals are normal. Given her abdominal pain a CT of abdomen pelvis was performed and shows hepatomegaly with minimal increased markings at the right hepatorenal space and proximal focal thickening at the hepatic flexure consistent with colitis. Chest x-ray shows vascular congestion and possible CHF. Basic natruretic peptide has been ordered however the machine is down and currently we are unable to obtain a value. I requested an ABG and a D-dimer be performed and they are both pending at this time. Dr. Hidalgo, from general surgery was contacted with regards to her colitis and he recommended a course of Cipro Flagyl per discussion with emergency department physician. The plan was initially to discharge her home however they got her up to ambulate her and oxygen saturations dropped into the mid 80s. They have fluctuated since then at times she will be sitting and be in the 90s and then drop into the 80s. I am obtaining an ABG to rule out obesity hypoventilation syndrome and we will calculate a gradient to do so. As noted a D-dimer is p ending and if this is elevated I will get a CTA of her chest and Dopplers of her legs with edema. [facility] Medical History Anemia Arthritis Back pain Bloody stool Depression Diabetes History of frequent headaches Hyperlipidemia Hypertension Hypothyroid Hypothyroidism Morbid obesity Noncompliance with medication regimen Thyroid disease Home Medications albuterol sulfate 2.5 mg/3 mL (0.083 %) solution for nebulization 2.5 mg inhalation Q4H PRN PRN Sob &/Or Wheezing 04/11/18 [History Last Taken 04/17/23] lisinopril 2.5 mg tablet 2.5 mg PO DAILY BP 04/11/18 [History Last Taken 04/17/23] fluoxetine 40 mg capsule 40 mg PO DAILY DEPRESSION 02/12/19 [History Last Taken 04/17/23] atorvastatin 20 mg tablet 20 mg PO QHS CHOLESTEROL 10/06/19 [History Last Taken 04/17/23] metformin 500 mg tablet,extended release 24 hr 1,000 mg PO DAILY dm 03/29/21 [History Last Taken Unknown] ondansetron 4 mg disintegrating tablet 4 mg PO Q8H PRN nausea and vomiting #10 tabs 08/12/22 [Rx Last Taken Unknown] blood sugar diagnostic (MetaversumTouch Verio test strips) #100 ea 02/18/23 [Rx Last Taken Unknown] blood-glucose meter,continuous (Dexcom G7 Film Processing Utility Worker) #1 ea 02/18/23 [Rx Last Taken Unknown] blood-glucose sensor (Dexcom G7 Sensor device) #3 ea 02/18/23 [Rx Last Taken Unknown] levothyroxine 200 mcg tablet 200 mcg PO DAILY #90 tabs 02/18/23 [Rx Last Taken 04/17/23] acetaminophen 500 mg tablet 500 - 1,000 mg PO Q6H PRN fever or pain 04/18/23 [History Last Taken 04/14/23] insulin aspart U-100 100 unit/mL (3 mL) subcutaneous pen (Novolog FlexPen U-100 Insulin aspart) 60 - 65 unit subcut TIDCM 04/18/23 [History Last Taken 04/17/23] insulin degludec 200 unit/mL (3 mL) subcutaneous pen (Tresiba FlexTouch U-200 insulin) 80 unit subcut DAILY 04/18/23 [History Last Taken 04/17/23] Allergy/AdvReac Type Severity Reaction Status Date / Time codeine Allergy Angioedema Verified 04/18/23 09:47 nitrofurantoin Allergy edema Verified 04/18/23 09:47 Penicillins Allergy Rash Verified 04/18/23 09:47 Sulfa (Sulfonamide Allergy Rash Verified 04/18/23 09:47 Antibiotics) sulfamethoxazole [Bactrim] Allergy Unknown Verified 04/18/23 09:47 trimethoprim [Bactrim] Allergy Unknown Verified 04/18/23 09:47 Family History Other Cancer Surgical History Hx of cholecystectomy Social History (Updated 04/18/23 @ 15:[address] Cecilia Villa DO) household members: none Smoking Status: Former smoker alcohol intake: current alcohol intake frequency: holidays/special occasions only substance use type: does not use ROS Constitutional Constitutional: Denies anorexia, change in weight, chills, fatigue, fever(s), malaise, night sweats, weakness or other Eyes Eyes: Denies blurry vision, change in eye color, change in vision, discharge from eye(s), double vision, erythema, eye pain, loss of vision or other ENT HEENT: Denies abnormal hearing, dysphagia, ear pain, epistaxis, headache(s), hearing loss, nasal congestion, nasal discharge, post nasal drip, sinus pres sure, sore throat or other Cardiovascular Cardiovascular: Reports dyspnea on exertion and edema; Denies chest pain, claudication, lightheadedness, orthopnea, palpitations, paroxysmal nocturnal dyspnea, rapid heart rate, syncope or other Respiratory/Chest Respiratory/Chest: Reports cough, dyspnea, shortness of breath at rest and shortness of breath with exertion; Denies excessive phlegm production, h emoptysis, productive cough, wheezing or other Gastrointestinal Gastrointestinal: Reports abdominal pain and nausea; Denies coffee ground emesis, constipation, diarrhea, dyspepsia, hematemesis, hematochezia, loose stools, melena, vomiting or other Genitourinary Genitourinary: Reports urinary frequency; Denies burning urination, difficulty urinating, dysuria, hematuria, nocturia, urinary hesitancy, urinary incontinence, urinary urgency or other Musculoskeletal Musculoskeletal: Reports back pain, joint pain and joint stiffness; Denies arthralgias, joint swelling, myalgias, neck pain or other Neurologic Neurologic: Reports numbness and tingling; Denies abnormal gait, abnormal speech, confusion, disequilibrium, dizziness, focal weakness, headache(s), paresthesias, seizure-like activity, seizures, syncope, tremor(s) or other Psychiatric Psychiatric: Denies anxiety, depression, homicidal ideation, suicidal ideation or other Endocrine Endocrinology: Reports polyuria; Denies change in body appearance, cold intolerance, excessive sweating, heat intolerance, polydipsia or other Hematologic/Lymphatic Hematologic/Lymphatic: Denies anemia, easy bleeding, easy bruising, lymphadenopathy or other Allergic/Immunologic Allergic/Immunologic: Denies rhinitis, hives, eczemia, asthma or other Vital Signs Vital Signs Vital Signs: 04/18/23 09:47 04/18/23 13:31 Temperature 97.6 F L Temperature Source Temporal Pulse Rate 105 H 83 Respiratory Rate 14 16 Blood Pressure 150/80 H 116/54 L Blood Pressure Mean 103 74 Pulse Ox 96 92 Oxygen Delivery Method Room Air Room Air Weight Weight: 118.66 kg Body Mass Index (BMI) 49.4 Physical Exam Const alert, oriented x3, no apparent distress and well nourished; Negative for average body habitus or healthy appearing Constitutional Narrative: Morbidly obese, white female, sitting up in the edge of the bed, family at bedside, appears comfortable and now, oxygen saturations fluctuate between 88% and 92 during our conversation on room air at rest, nontoxic General Appearance: cooperative HEENT normocephalic, head/scalp atraumatic, hearing grossly normal bilaterally and moist oral mucous membranes HEENT Narrative: Mallampati 4, dentition is, no thrush Eyes PERRL, EOMs intact bilaterally and conjunctivae normal Eyes Narrative: No scleral icterus Neck no lymphadenopathy and supple Neck Narrative: Trachea is midline, neck is short and thick, no identifiable thyroid enlargement or nodules Resp normal respiratory effort, no retractions, no use of accessory muscles and clear to auscultation bilaterally Resp Narrative: Diminished but clear Auscultation: Negative for rales, rhonchi or wheezes Cardio regular rate, regular rhythm, S1 normal heart sound, S2 normal heart sound, no murmurs, no rub, no gallops and no clicks GI normal to inspection, nondistended, normoactive bowel sounds and soft to palpation GI Narrative: Mild diffuse on the right side of the abdomen in the upper quadrant Extremity Extremity Narrative: No clubbing or cyanosis however she is 1-2+ bilateral lower extremity pitting edema distally Skin no wounds, skin turgor normal, no jaundice, no petechiae and no mottling Neuro oriented x3, CN's II-XII intact bilaterally, moves all extremities and no focal motor deficits Neuro Narrative: Bilateral lower extremity distal neuropathy related to diabetes Speech: speech normal Psych affect normal Psych Narrative: Eye contact is good, patient interacts appropriately Results Lab / Micro Data Attestation: I reviewed the patient's lab results. 04/18/23 10:54 04/18/23 10:54 Labs: Laboratory Results - last 24 hr 04/18/23 10:45: Urine Color Yellow, Urine Clarity Cloudy, Urine pH 6.0, Ur Specific [place] 1.015, Urine Protein 30 H, Urine Glucose (UA) 1000 H, Urine Ketones Negative, Urine Occult Blood 150 H, Urine Nitrite Negative, Urine Bilirubin Negative, Urine Urobilinogen 1 H, Ur Leukocyte Esterase 500 H, Urine RBC 10-25 SEEN, Urine WBC >100 SEEN, Ur Squamous Epith Cells 10-25 SEEN, Urine Bacteria 2+, Urine Mucus 0 SEEN 04/18/23 10:54: WBC 9.6, RBC 4.87, Hgb 12.9, Hct 41.4, MCV 85.0, MCH 26.5 L, MCHC 31.2 L, RDW Std Deviation 45.6 H, RDW Coeff of [place] 14.9 H, Plt Count 206, MPV 9.9, Immature Gran % (Auto) 1.100 H, Neut % (Auto) 71.2 H, Lymph % (Auto) 18.9 L, [place] % (Auto) 5.3, Eos % (Auto) 2.7, Baso % (Auto) 0.8, Absolute Neuts (auto) 6.8, Absolute Lymphs (auto) 1.82, Nucleated RBC % 0, Sodium 131 L, Potassium 5.0, Chloride 97 L, Carbon Dioxide 29.0, Anion Gap 5, BUN 10, Creatinine 0.90, Estim Creat Clear Calc 52.67, Est GFR (MDRD) Af Amer 83, Est GFR (MDRD) Non-Af 68, BUN/Creatinine Ratio 11.1, Glucose 430 H, Calcium 9.2, Total Bilirubin 0.70, AST 48 H, ALT 50, Alkaline Phosphatase 220 H, B- Natriuretic Peptide 6.4, Total Protein 8.7 H, Albumin 3.0 L, Globulin 5.7 H, Albumin/Globulin Ratio 0.5 L, Lipase 26 04/18/23 13:38: POC Glucose 345 H Rhythm Strip Rhythm Strip: Sinus Rhythm Rate: 89 Ectopy: None Radiology Impression Abdomen/Pelvis CT 04/18/23 10:42 IMPRESSION: Hepatosplenomegaly. Minimal increased markings at the right hepatorenal space. Proximal focal thickening of the hepatic flexure. Electronically Signed: Moy Rivera MD at 12:33 EDT , Chest X-Ray 04/18/23 10:42 IMPRESSION: Vascular congestion and CHF. Electronically Signed: Moy Rivera MD at 12:36 EDT , Assessment & Plan Assessment/Plan (1) Colitis: (2) Hypoxia: (3) Leg edema: (4) UTI (urinary tract infection): (5) Hyperglycemia: PLAN: Plan Hypoxia -Unclear if this is acute or chronic as I have no previous data on her -Chest x-ray does show some volume overload -D-dimer was 0.54 however with age correction VTE is unlikely -ABG is pending -We will calculate AA gradient and if a gradient is normal then we can suspect she has obesity hypoventilation syndrome and not probably need supplemental oxygen chronically -With cough we will check COVID and respiratory viral panel -Chronically reflux could sideration chronic cough well if work-up is otherwise unremarkable -We will need ambulatory pulse ox prior to discharge -Check echocardiogram -BNP is pending (machine down) however suspect patient might have some volume overload with right-sided heart failure related to untreated sleep apnea and probable chronic hypoxia -We will use Lasix 3 times daily for now and monitor renal function -Patient will likely need pulmonary follow-up after discharge -Check echocardiogram -Fluid restriction to 1750 cc daily -Sodium restricted diet Leg edema -BNP is pending -Lasix as ordered -D-dimer was 0.4 and with age correction VTE is unlikely Colitis -Cipro/Flagyl initiated by the emergency department at the recommendation of Dr. Hidalgo -We will continue -We will allow for diet now but patient is to notify us if this worsens her pain and we will discontinue diet and make her n.p.o. -As needed pain medication UTI -Culture pending -Would recommend outpatient follow-up with urology as patient indicates she gets frequent UTIs -I suspect this may be related to her poor blood glucose control -We will be on Cipro for colitis and theoretically should be covered but will monitor DM-2 with hyperglycemia -Most recent hemoglobin A1c was 10.3 from earlier in January -Carbohydrate/cardiac diet -Continue home insulin -Hold home oral agents -SSI -Accu-Cheks as ordered -Patient is on low-dose lisinopril for renal protection but does not appear that she has a history of hypertension Hypothyroidism -TSH was recently checked and was 3.79 -Continue home levothyroxine Hyperlipidemia -Continue home atorvastatin -Patient with recent lipid check--> triglycerides 314/total cholesterol 135/LDL 44/HDL 28 Diabetic neuropathy -Pain not any current medic patient for this next-continue to monitor KODI -Patient is noncompliant with CPAP at home -Recommend outpatient follow-up with new titration study and compliance education Depression -Continue home fluoxetine Morbid obesity -BMI 49.4 -Recommend weight loss next-complicates treatment, prognosis, outcomes DVT prophylaxis - Lovenox 40 mg SQ twice daily CODE STATUS -Full code is verified prior to admission in the emergency department Charges/Coding Visit Charges Inpatient E&M: 90759 Init Hosp L3
--- NOTE | 2023-04-18 15:30 | CHAPLAIN ---
Type of Pastoral Visit _x__ Initial Visit ___ Follow-up Visit ___ On-call Visit ___ General Patient Visit ___ Spiritual Assessment ___ Family Conference ___ Bereavement ___ Rapid Response ___ Code Blue ___ Other (describe below) Pastoral Care Referral From ___ Patient _x__ Family ___ Nurse ___ Physician ___ Suppression Crew Leader ___ Floor Worker ___ Other (describe below) Sacrament/Intervention _x__ Active listening ___ Anointing ___ Mosque ___ Bereavement ___ Communion ___ Gauri exploration ___ ___ Life review _x__ Prayer ___ Reconciliation ___ Sacrament of Sick _x__ Supportive presence ___ Wedding ___ Other (describe below) Pastoral Comments personal request made from multimedia author of this patient for support and prayer while she was in the ED; met with patient and gave the same with her expression of appreciation
[2023-04-18 15:58] LABS: D-Dimer Quantitative (DVT/PE) 0.54 FEU/ug/m (0.27-0.49)
[2023-04-18 16:22] LABS: Allen Test Positive; Base Excess 6 mmol/L (-2 to +2); Bicarbonate 30.6 mmol/L (22-26); Blood Gas Specimen Type ART; Mode Not entered; O2 Delivery Device Room Air; PO2 55 mmHG (75-100); SITE L Radial; SO2 89 % (95-99); Total Carbon Dioxide 32 mmol/L; pCO2 46.4 mmHg (35-45); pH 7.43 (7.35-7.45)
--- NOTE | 2023-04-18 16:23 | ECHOCS_ITS ---
Reason For Study: CHF Procedure This was a 2D Doppler, Color Flow transthoracic echocardiogram. The study was technically difficult. Contrast injection was performed. Exam performed portable in patient room. Left Ventricle Normal size and thickness. The left ventricular ejection fraction is 60 %. Stage 1 diastolic dysfunction. Right Ventricle Normal right ventricle. Atria The left and right atria are normal. Mitral Valve Mild mitral annular calcification. Trivial mitral valve insufficiency. Tricuspid Valve Trivial tricuspid valve insufficiency. Unable to estimate RV systolic pressure due to insufficient tricuspid regurgitant envelope. Aortic Valve Trisinus/trileaflet aortic valve. Pulmonic Valve The pulmonic valve is not well visualized. Great Vessels Normal sized aortic root. Pericardium/Pleural No pericardial effusion. Medication Diluted definity 2ml given slow IV push to enhance endocardial definition. MMode/2D Measurements & Calculations LVIDd: 4.7 cm IVSd: 1.1 cm Ao root diam: 3.1 cm LVIDs: 3.2 cm LVPWd: 0.82 cm LA dimension: 3.6 cm RVDd: 3.8 cm FS: 31.6 % LAV(MOD-bp): 52.0 ml LVAd ap4: 27.4 cm2 SV(MOD-sp4): 46.3 ml LAV(MOD-bp) Indexed: 24.6 ml/m2 LVLd ap4: 7.2 cm LAV(MOD-sp2): 59.8 ml EDV(MOD-sp4): 84.0 ml LAV(MOD-sp4): 40.8 ml EDV(sp4-el): 89.3 ml LVAs ap4: 16.3 cm2 LVLs ap4: 5.7 cm ESV(MOD-sp4): 37.6 ml ESV(sp4-el): 39.4 ml EF(MOD-sp4): 55.2 % EF(sp4-el): 55.9 % SV(sp4-el): 49.9 ml LA A4 area: 17.3 cm2 RA A4 area: 10.7 cm2 TAPSE: 1.5 cm Time Measurements MV dec time: 0.26 sec Doppler Measurements & Calculations MV E max ceasar: 85.7 cm/sec Lat Peak E' Ceasar: 10.4 cm/sec Med Peak E' Ceasar: 5.0 cm/sec MV A max ceasar: 111.2 cm/sec E/E' lat: 8.3 E/E' med: 17.0 MV E/A: 0.77 MV V2 max: 121.4 cm/sec MV P1/2t max ceasar: 111.2 cm/sec Ao V2 max: 154.6 cm/sec MV max P.9 mmHg MV P1/2t: 93.7 msec Ao max P.6 mmHg MV V2 mean: 72.8 cm/sec Ao V2 mean: 105.9 cm/sec MV mean P.4 mmHg MV dec slope: 347.6 cm/sec2 Ao mean P.1 mmHg MV V2 VTI: 28.3 cm MVA(P1/2t): 2.3 cm2 Ao V2 VTI: 32.9 cm AV (velocity ratio): 0.86 LV V1 max: 138.1 cm/sec PA V2 max: 88.5 cm/sec LV V1 max P.6 mmHg LV V1 mean P.3 mmHg LV V1 mean: 97.4 cm/sec LV V1 VTI: 28.4 cm ECHO/Echo Complete W/ Contrast Interpretation Summary The left ventricular ejection fraction is 60 %. Stage 1 diastolic dysfunction. Mild mitral annular calcification. Ordering Physician: Cecilia Villa Referring Physician: MD Evonne Tj Performed By: Jacobo Mello RCS
--- NOTE | 2023-04-18 16:35 | PCM.HOSP.N ---
Hospitalist Note ABG was obtained and I did calculate an AA gradient which was found to be 36.7. Age expected a gradient is 18. She has some other process besides obesity hypoventilation syndrome responsible for hypoxia.
[2023-04-18] MEDS: Insulin Lispro 100 UNIT/ML INSULN.PEN SC (17:35)
[2023-04-18 17:49] LABS: Bedside Glucose 338 mg/dL (74-106)
[2023-04-18] MEDS: Enoxaparin 40 MG/0.4 ML Syringe SC (21:31)
[2023-04-19] VITALS (9 sets, daily range): BP systolic 110–126; BP diastolic 65–70; PULSE 84–103; RESP 16–18; TEMP 36.6–36.7; O2SAT 88–97; BMI 48.7
[2023-04-19] MEDS: metroNIDAZOLE 500 MG Tablet PO ×3 (05:56→20:39)
[2023-04-19] MEDS: Acetaminophen 325 MG Tablet 650 MG PO ×2 (05:56→20:41)
[2023-04-19] MEDS: Insulin Lispro 100 UNIT/ML INSULN.PEN SC ×3 (06:00→17:39)
[2023-04-19 06:22] LABS: Bedside Glucose 391 mg/dL (74-106)
[2023-04-19 06:27] LABS: Absolute Lymphocyte Count 2.74 X10^3/uL (0.83-4.51); Basophil# 0.09 X10^3/uL; Basophil% 0.9 % (0-1); Eosinophil# 0.38 X10^3/uL; Eosinophils% 3.8 % (0-5); Hematocrit 38.9 % (37-47); Hemoglobin 12.2 g/dL (12.0-15.0); Lymphocyte # 2.74 X10^3/ul (0.83-4.51); Lymphocyte % 27.2 % (19-41); Mean Corp Hgb Conc 31.4 g/dL (32-36); Mean Corpuscular Hgb 26.8 pg (27.0-32.0); Mean Corpuscular Volume 85.3 fL (81-99); Mean Platelet Vol. 10.5 fl (6.2-12.0); Monocyte# 0.65 X10^3/uL; Monocyte% 6.4 % (0-10); NRBC Flagged by Analyzer 0 % (0-5); Neutrophil # 6.03 X10^3/uL (2.7-7.7); Neutrophil % 59.7 % (47-70); Platelet Count 211 K/mm3 (150-450); RBC Distribution Width CV 14.8 % (11.6-14.6); RBC Distribution Width SD 45.8 fl (35.1-43.9); Red Blood Count 4.56 M/mm3 (4.2-5.4); White Blood Count 10.1 K/mm3 (4.4-11.0)
[2023-04-19 06:50] LABS: Anion Gap 3 (5-15); BUN 13 mg/dL (7-18); BUN/Creat Ratio 15.5 RATIO (10-20); Calcium,Total 9.2 mg/dL (8.5-10.1); Chloride 94 mmol/L (98-107); Creatinine, Serum 0.84 mg/dL (0.55-1.02); EST Glomerular Filtration Rate 74 mL/min (>60); Est Glom Filt Rate - Afr Amer 90 mL/min (>60); Estimated Creatinine Clearance 56.43 ml/min; Glucose 378 mg/dL (74-106); Magnesium 1.9 mg/dL (1.6-2.6); Potassium 4.2 mmol/L (3.5-5.1); Sodium Level 130 mmol/L (136-145)
[2023-04-19] MEDS: Ciprofloxacin 500 MG Tablet PO ×2 (08:35→20:39)
[2023-04-19] MEDS: Enoxaparin 40 MG/0.4 ML Syringe SC ×2 (08:36→20:39)
[2023-04-19] MEDS: Furosemide 40 MG/4 ML Vial IV (08:36)
[2023-04-19] MEDS: Fluoxetine HCl 40 MG CAPSULE PO (09:27)
[2023-04-19] MEDS: Lisinopril 2.5 MG Tablet PO (09:27)
[2023-04-19] MEDS: Levothyroxine 100 MCG Tablet 200 MCG PO (09:27)
[2023-04-19] MEDS: Insulin Glargine-YFGN 100 UNIT/ML Pen 80 UNIT SC (09:27)
[2023-04-19] MEDS: Insulin Lispro 100 UNIT/ML INSULN.PEN 65 UNIT SC ×3 (09:28→17:39)
--- NOTE | 2023-04-19 11:00 | CASEMGMT ---
ALFONZO WHATLEY Assessment: ALFONZO WHATLEY to room to meet w/pt for initial transition planning/care coordination assessment. ALFONZO WHATLEY introduced self and role at [facility], pt voices understanding and consents to assessment. Pt is A/O x4 and answers all questions appropriately at this time. Pt sitting up in chair in no distress. Care providers, pharmacy, and demographics verified/updated. PCP:Dr Douglass Specialists: Dr Cervantes-endocrinology. Pt states she also sees a GI doctor @ [facility], but does not remember his name Preferred Pharmacy: [facility] Insurance: [employer] Prescription Benefit: yes LW/HPOA: Pt denies having a LW/DPOA and declines wanting to complete while @ [facility], although states may be interested in doing this later. Made aware she can make an appt as an OP, if she wishes in the future. LNOK: Tj Montejo, brother Living Arrangements: Pt lives alone in a ground level apt with 4 steps to enter with a rail. Pt reports she is I in ADL's, IADL's, and manages her own medications. Transportation: Pt drives self and denies concerns with transportation. DME/HHC/SNF: Pt states she has a functioning glucometer w/supplies. She also has a CPAP that she got from [facility] but has not uses it for 1-2 yrs. She does not have home O2. Discussed home O2 set up process. Pt states, should she qualify for home O2, then to [place] [facility] does not have a pulse ox. ALFONZO WHATLEY provided one for her at this time and instructed on use. Pt states she works @ [employer] but has been on a family leave since September. She states she has tried to contact [facility] but has been unsuccessful with reaching someone. She requests to speak w/SW re: food stamps and info re: applying for [facility]. ANTHONY, Cony, made aware. Pt wishes to return home and states has no concerns with going home at time of discharge.??Follow for home oxygen needs and any further discharge planning/needs.? Pt voices no further concerns/needs at this time.? Advised pt to ask for?CM?if any further questions/concerns/needs arise.? Voices understanding. PLAN:??Home. Follow for possible home O2. Mildred SEAY?RN?CM
--- NOTE | 2023-04-19 11:52 | PCM.PN.HOSP ---
Reason for Visit Reason for Visit: Diagnoses Noninfective gastroenteritis and colitis, unspecified (04/18/23) Urinary tract infection, site not specified (04/18/23) Hypoxemia (04/18/23) Localized edema (04/18/23) Hyperglycemia, unspecified (04/18/23) Objective Data Objective Data Vital Signs: Vital Signs Temp Pulse Resp BP Pulse Ox O2 Del Method 97.9 F 84 16 126/66 H 92 Room Air 04/19/23 08:29 04/19/23 08:29 04/19/23 08:29 04/19/23 08:29 04/19/23 08:29 04/19/23 08:29 Oxygen Delivery Method Room Air Weight: 257 lb 15.053 oz Body Mass Index (BMI) 48.7 Intake & Output: Intake and Output for Last 24 Hours 04/18/23 04/19/23 04/20/23 03:59 03:59 03:59 Intake Total 925.42 / 925.42 Balance 925.42 / 925.42 Lab / Micro Data 04/19/23 05:45 04/19/23 05:45 Labs: Laboratory Results - last 24 hr 04/18/23 10:54: B-Natriuretic Peptide 6.4 04/18/23 13:38: POC Glucose 345 H 04/18/23 15:21: D-Dimer Quant (PE/DVT) 0.54 H* 04/18/23 17:31: POC Glucose 338 H 04/19/23 05:45: WBC 10.1, RBC 4.56, Hgb 12.2, Hct 38.9, MCV 85.3, MCH 26.8 L, MCHC 31.4 L, RDW Std Deviation 45.8 H, RDW Coeff of [place] 14.8 H, Plt Count 211, MPV 10.5, Immature Gran % (Auto) 2.000 H, Neut % (Auto) 59.7, Lymph % (Auto) 27.2, [place] % (Auto) 6.4, Eos % (Auto) 3.8, Baso % (Auto) 0.9, Absolute Neuts (auto) 6.0, Absolute Lymphs (auto) 2.74, Nucleated RBC % 0, Sodium 130 L, Potassium 4.2, Chloride 94 L, Carbon Dioxide 33.0 H, Anion Gap 3 L, BUN 13, Creatinine 0.84, Estim Creat Clear Calc 56.43, Est GFR (MDRD) Af Amer 90, Est GFR (MDRD) Non-Af 74, BUN/Creatinine Ratio 15.5, Glucose 378 H, Calcium 9.2, Phosphorus 4.0, Magnesium 1.9 04/19/23 05:54: POC Glucose 391 H Micro: Microbiology 04/18/23 17:45 Nasal Secretion SARS-CoV-2 Antigen (Rapid) - Final ABG Data ABG results: ABG 04/18/23 16:18 Specimen Type ART Sample Site L Radial pH 7.43 Bicarbonate Actual 30.6 H Total CO2 32 Base Excess 6 H O2 Saturation 89 L ABG pCO2 46.4 H ABG pO2 55 L Ervin Test Positive O2 Delivery Device Room Air Vent Mode Not entered Radiography Diagnostic Testing: Radiology Impression Abdomen/Pelvis CT 04/18/23 10:42 IMPRESSION: Hepatosplenomegaly. Minimal increased markings at the right hepatorenal space. Proximal focal thickening of the hepatic flexure. Electronically Signed: Moy Rivera MD at 12:33 EDT , Chest X-Ray 04/18/23 10:42 IMPRESSION: Vascular congestion and CHF. Electronically Signed: Moy Rivera MD at 12:36 EDT , Rhythm Strip Rhythm Strip: Sinus Rhythm Rate: 89 Ectopy: None
--- NOTE | 2023-04-19 12:37 | PCM.PN.HOSP ---
Subjective Subjective Doing well, no issues overnight. Maintaining oxygen saturations on room air Objective Data Objective Data Vital Signs: Vital Signs Temp Pulse Resp BP Pulse Ox O2 Del Method 97.9 F 84 16 126/66 H 92 Room Air 04/19/23 08:29 04/19/23 08:29 04/19/23 08:29 04/19/23 08:29 04/19/23 08:29 04/19/23 08:29 Oxygen Delivery Method Room Air Weight: 257 lb 15.053 oz Body Mass Index (BMI) 48.7 Intake & Output: Intake and Output for Last 24 Hours 04/18/23 04/19/23 04/20/23 03:59 03:59 03:59 Intake Total 925.42 / 925.42 Balance 925.42 / 925.42 Lab / Micro Data 04/19/23 05:45 04/19/23 05:45 Labs: Laboratory Results - last 24 hr 04/18/23 10:54: B-Natriuretic Peptide 6.4 04/18/23 13:38: POC Glucose 345 H 04/18/23 15:21: D-Dimer Quant (PE/DVT) 0.54 H* 04/18/23 17:31: POC Glucose 338 H 04/19/23 05:45: WBC 10.1, RBC 4.56, Hgb 12.2, Hct 38.9, MCV 85.3, MCH 26.8 L, MCHC 31.4 L, RDW Std Deviation 45.8 H, RDW Coeff of [place] 14.8 H, Plt Count 211, MPV 10.5, Immature Gran % (Auto) 2.000 H, Neut % (Auto) 59.7, Lymph % (Auto) 27.2, [place] % (Auto) 6.4, Eos % (Auto) 3.8, Baso % (Auto) 0.9, Absolute Neuts (auto) 6.0, Absolute Lymphs (auto) 2.74, Nucleated RBC % 0, Sodium 130 L, Potassium 4.2, Chloride 94 L, Carbon Dioxide 33.0 H, Anion Gap 3 L, BUN 13, Creatinine 0.84, Estim Creat Clear Calc 56.43, Est GFR (MDRD) Af Amer 90, Est GFR (MDRD) Non-Af 74, BUN/Creatinine Ratio 15.5, Glucose 378 H, Calcium 9.2, Phosphorus 4.0, Magnesium 1.9 04/19/23 05:54: POC Glucose 391 H Micro: Microbiology 04/18/23 10:45 Urine, Clean Catch Urine Culture - Preliminary Gram negative nanette 04/18/23 17:45 Nasal Secretion SARS-CoV-2 Antigen (Rapid) - Final ABG Data ABG results: ABG 04/18/23 16:18 Specimen Type ART Sample Site L Radial pH 7.43 Bicarbonate Actual 30.6 H Total CO2 32 Base Excess 6 H O2 Saturation 89 L ABG pCO2 46.4 H ABG pO2 55 L Ervin Test Positive O2 Delivery Device Room Air Vent Mode Not entered Radiography Diagnostic Testing: Radiology Impression Chest X-Ray 04/18/23 10:42 IMPRESSION: Vascular congestion and CHF. Electronically Signed: Moy Rivera MD at 12:36 EDT , Echocardiogram 04/18/23 16:23 Interpretation Summary The left ventricular ejection fraction is 60 %. Stage 1 diastolic dysfunction. Mild mitral annular calcification. Ordering Physician: Cecilia Villa Referring Physician: MD Evonne Tj Performed By: Jacobo Mello, NICKY Rhythm Strip Rhythm Strip: Sinus Rhythm Rate: 89 Ectopy: None Physical Exam Narrative General: Alert, Oriented x3, Cooperative, No apparent distress HEENT: Atraumatic, PERRLA, EOMI, Normocephalic Oral: Moist Mucosa Neck: Supple, No JVD Lungs: Diminished, Normal air movement, No rhonchi, No wheeze, No rales Cardiovascular: Regular rate, Regular Rhythm, Normal S1, Normal S2, No murmurs Abdomen: Soft, Non Tender, Non-Distended, No Hepato-splenomegaly Extremities: Trace edema, Capillary Refill Less than 3 Seconds Skin: No rashes, No breakdown Musculoskeletal: No Tenderness to Palpation of Joints or Extremities Neurological: Cranial nerves II-XII grossly intact, Motor Exam 5/5 strength throughout, Sensory exam intact to light touch and pain Psych/Mental Status: Normal Affect, Appropriate Assessment & Plan Assessment/Plan (1) Colitis: (2) Hypoxia: (3) Leg edema: (4) UTI (urinary tract infection): (5) Hyperglycemia: PLAN: Plan 1. Transient intermittent hypoxia is likely multifactorial secondary to her morbid obesity as well as her sleep apnea and diastolic CHF/HLD ? Echo with normal EF and stage I diastolic dysfunction no signs of right heart strain ? Continue with Lasix ? She is not requiring any oxygen currently at rest, will obtain an ambulatory pulse ox ? Continue with the fluid restriction ? BNP is 6.4 2. Infectious colitis with UTI ? Continue on Cipro and Flagyl from the ER she is tolerating a diet without any significant discomfort or abdominal pain ? Urine cultures pending but should be covered with Cipro 3. DM2 with neuro apathy ? Uncontrolled diabetes, will hold her home oral agents ? Continue with insulin ? Accu-Cheks ACHS ? We will monitor and make adjustment as necessary 4. Hypothyroidism ? Stable ? Continue with Synthroid ? Recently checked TSH was 3.79 5. Depression/anxiety ? Stable ? Continue with home medications DVT: Lovenox Charges/Coding Visit Charges Inpatient E&M: 43145 Subs Hosp L2
[2023-04-19 13:54] LABS: Bedside Glucose 348 mg/dL (74-106)
--- NOTE | 2023-04-19 13:54 | CHAPLAIN ---
Type of Pastoral Visit ___ Initial Visit _x__ Follow-up Visit ___ On-call Visit ___ General Patient Visit ___ Spiritual Assessment ___ Family Conference ___ Bereavement ___ Rapid Response ___ Code Blue ___ Other (describe below) Pastoral Care Referral From _x__ Patient ___ Family ___ Nurse ___ Physician ___ Licensed Home Inspector ___ Music Promoter ___ Other (describe below) Sacrament/Intervention _x__ Active listening ___ Anointing ___ Taoism ___ Bereavement ___ Communion _x__ Gauri exploration ___ ___ Life review _x__ Prayer ___ Reconciliation ___ Sacrament of Sick ___ Supportive presence ___ Wedding ___ Other (describe below) Pastoral Comments patient is welcoming of follow up visit; pt states that she will need to stay another night and is coping well; pt states she wants to learn what she needs to do to have a healthier life and she is willing to do what it takes; pt requests prayer for help in this area
--- NOTE | 2023-04-19 16:15 | CASEMGMT ---
Per RN CM patient would like a Medicaid application. ANTHONY provided patient with a Medicaid application. ANTHONY told patient if she completes it while she is at [facility] SW can fax it for her. Patient completed Medicaid application. ANTHONY faxed it to [employer] and gave it back to patient. Cony LACKEY
[2023-04-19 16:48] LABS: Bedside Glucose 171 mg/dL (74-106)
[2023-04-19] MEDS: NYSTATIN 500,000 UNIT/5 ML UDC 500000 UNIT PO ×2 (17:44→20:39)
[2023-04-19 19:04] LABS: Bedside Glucose 185 mg/dL (74-106)
[2023-04-19] MEDS: 0.9% Saline Lock 10 ML Syringe IV (20:32)
[2023-04-19] MEDS: Ondansetron 4 MG/2 ML Vial IV (20:33)
[2023-04-19] MEDS: Atorvastatin Calcium 20 MG Tablet PO (20:39)
[2023-04-19 22:11] LABS: Bedside Glucose 146 mg/dL (74-106)
[2023-04-20 03:00] VITALS: BP 103/63; PULSE 86; RESP 18; TEMP 36.6; O2SAT 95
[2023-04-20] MEDS: Acetaminophen 325 MG Tablet 650 MG PO (03:29)
[2023-04-20] MEDS: proCHLORPERazine 10 MG/2 ML Vial 5 MG IV (03:29)
[2023-04-20 03:34] VITALS: BMI 49.0
[2023-04-20] MEDS: Senna/Docusate Sodium 1 Tablet 2 TABLET PO (06:33)
[2023-04-20] MEDS: Levothyroxine 100 MCG Tablet 200 MCG PO (06:33)
[2023-04-20] MEDS: metroNIDAZOLE 500 MG Tablet PO (06:33)
[2023-04-20] MEDS: Insulin Lispro 100 UNIT/ML INSULN.PEN SC (06:37)
[2023-04-20 06:58] LABS: Bedside Glucose 352 mg/dL (74-106)
[2023-04-20 07:07] LABS: Absolute Lymphocyte Count 2.51 X10^3/uL (0.83-4.51); Absolute Neutrophil Count 5.4 X10^3/uL (2.0-7.7); Basophil# 0.12 X10^3/uL; Basophil% 1.3 % (0-1); Eosinophil# 0.39 X10^3/uL; Eosinophils% 4.2 % (0-5); Hematocrit 38.8 % (37-47); Hemoglobin 12.3 g/dL (12.0-15.0); Lymphocyte # 2.51 X10^3/ul (0.83-4.51); Lymphocyte % 27.2 % (19-41); Mean Corp Hgb Conc 31.7 g/dL (32-36); Mean Corpuscular Hgb 26.9 pg (27.0-32.0); Mean Corpuscular Volume 84.7 fL (81-99); Mean Platelet Vol. 10.5 fl (6.2-12.0); Monocyte# 0.51 X10^3/uL; Monocyte% 5.5 % (0-10); NRBC Flagged by Analyzer 0 % (0-5); Neutrophil # 5.37 X10^3/uL (2.7-7.7); Neutrophil % 58.1 % (47-70); Platelet Count 213 K/mm3 (150-450); RBC Distribution Width CV 14.8 % (11.6-14.6); RBC Distribution Width SD 45.1 fl (35.1-43.9); Red Blood Count 4.58 M/mm3 (4.2-5.4); White Blood Count 9.2 K/mm3 (4.4-11.0)
[2023-04-20 07:24] VITALS: O2SAT 94
[2023-04-20 07:44] LABS: Anion Gap 7 (5-15); BUN 26 mg/dL (7-18); BUN/Creat Ratio 25.5 RATIO (10-20); Calcium,Total 9.2 mg/dL (8.5-10.1); Chloride 92 mmol/L (98-107); Creatinine, Serum 1.02 mg/dL (0.55-1.02); EST Glomerular Filtration Rate 60 mL/min (>60); Est Glom Filt Rate - Afr Amer 72 mL/min (>60); Estimated Creatinine Clearance 46.47 ml/min; Glucose 347 mg/dL (74-106); Potassium 4.2 mmol/L (3.5-5.1); Sodium Level 128 mmol/L (136-145)
[2023-04-20] MEDS: Insulin Lispro 100 UNIT/ML INSULN.PEN 65 UNIT SC (08:55)
[2023-04-20] MEDS: Insulin Glargine-YFGN 100 UNIT/ML Pen 80 UNIT SC (08:56)
[2023-04-20] MEDS: Furosemide 40 MG/4 ML Vial IV (08:57)
[2023-04-20] MEDS: Ciprofloxacin 500 MG Tablet PO (08:58)
[2023-04-20] MEDS: Enoxaparin 40 MG/0.4 ML Syringe SC (08:58)
[2023-04-20] MEDS: 0.9% Saline Lock 10 ML Syringe IV (08:58)
[2023-04-20] MEDS: NYSTATIN 500,000 UNIT/5 ML UDC 500000 UNIT PO (08:59)
[2023-04-20] MEDS: Lisinopril 2.5 MG Tablet PO (08:59)
[2023-04-20] MEDS: Fluoxetine HCl 40 MG CAPSULE PO (08:59)
[2023-04-20 09:00] VITALS: BP 110/66; PULSE 82; RESP 14; TEMP 36.1; O2SAT 90
[2023-04-20 09:44] VITALS: O2SAT 91; O2SAT 93
--- NOTE | 2023-04-20 09:44 | PCM.DC ---
Discharge Instructions Diet Discharge Diet: Low fat / Low cholesterol, 6 Cup Fluid Restriction and Carb Control Diet Activity Discharge Activity: Return to Normal Activity Dressing / Incision Call your doctor if you observe: Fever of 101 or Higher, Shortness of breath, Dizziness, Fainting spells, Swelling in the ankles, Chest pain and Increased palpitations (irregular heartbeat) Follow Up Care Test Results: Test results from this visit will be discussed in further detail at your follow-up appointment, if applicable. Discharge Plan Admission Admit Date/Time: 04/18/23 15:10 Attending Provider: Sergo Bustillos Primary Care Provider: Tj Douglass Consulting Providers: Cecilia Villa Instructions Additional Instructions / Restrictions: Follow-up with your PCP in 3 to 5 days to monitor your renal function as you were started on Lasix to try to help take fluid off for you given that your echocardiogram demonstrated stage I diastolic dysfunction. I also recommend a fluid restriction and closer adherence to diabetic diet. Also recommend restarting your CPAP at night as part of your hypoxia issues are related to sleep apnea. Discharge Orders/Prescriptions Prescriptions: New metronidazole 500 mg Tablet 500 mg PO TID 7 Days Qty: 21 0RF cefdinir 300 mg capsule 300 mg PO BID 7 Days Qty: 14 0RF furosemide [Lasix] 20 mg tablet 20 mg PO DAILY Qty: 30 0RF Continued albuterol sulfate 2.5 mg /3 mL (0.083 %) solution for nebulization 2.5 mg INHALATION Q4H PRN PRN (Reason: Sob &/Or Wheezing) lisinopril 2.5 mg tablet 2.5 mg PO DAILY (DME) Dexcom G7 Sensor Device See Rx Instructions .Route Qty: 3 5RF Rx Instructions: 1 sensor q 10 days (DME) Dexcom G7 Radio Communications Superintendent Misc See Rx Instructions .Route Qty: 1 0RF Rx Instructions: As directed levothyroxine 200 mcg tablet 200 mcg PO DAILY Qty: 90 1RF (DME) OneTouch Verio test strips Strip See Rx Instructions .Route Qty: 100 5RF Rx Instructions: 4x/day fluoxetine 40 MG capsule 40 mg PO DAILY Patient Comments: TAKE 1 CAPSULE BY MOUTH EVERY DAY atorvastatin 20 MG tablet 20 mg PO QHS metformin 500 mg tablet extended release 24 hr 1,000 mg PO DAILY Patient Comments: PT STATES TAKES BIDCM NEEDED. PER EXTERNAL HISTORY MED HAS NOT BEEN FILLED RECENTLY. ondansetron 4 mg tablet,disintegrating 4 mg PO Q8H PRN (Reason: nausea and vomiting) Qty: 10 0RF insulin aspart U-100 [Novolog FlexPen U-100 Insulin] 100 unit/mL (3 mL) insulin pen 60 - 65 unit SUBCUT TIDCM insulin degludec [Tresiba FlexTouch U-200] 200 unit/mL (3 mL) insulin pen 80 unit SUBCUT DAILY acetaminophen 500 mg tablet 500 - 1,000 mg PO Q6H PRN (Reason: fever or pain) Referrals / Follow Up: Tj Douglass MD [Primary Care Provider] - Within 1 Week Disposition Disposition (needs filled in before D/C Order can be placed): Home, Self Care
--- NOTE | 2023-04-20 12:44 | DS.PCM_ITS ---
Providers Date of Admission: 04/18/23 Primary Care Physician: Dr. Tj Douglass MD Reason For Visit: HYPOXIA/EDEMA Diagnosis Discharge Diagnosis (1) Colitis: Status: Acute Code(s): K52.9 - Noninfective gastroenteritis and colitis, unspecified (2) Hypoxia: Status: Acute Code(s): R09.02 - Hypoxemia (3) Leg edema: Status: Acute Code(s): R60.0 - Localized edema (4) UTI (urinary tract infection): Status: Acute Code(s): N39.0 - Urinary tract infection, site not specified (5) Hyperglycemia: Status: Acute Code(s): R73.9 - Hyperglycemia, unspecified Plan 1. Transient intermittent hypoxia is likely multifactorial secondary to her morbid obesity as well as her sleep apnea and diastolic CHF/HLD ? Echo with normal EF and stage I diastolic dysfunction no signs of right heart strain ? Continue with Lasix ? She is not requiring any oxygen currently at rest, will obtain an ambulatory pulse ox ? Continue with the fluid restriction ? BNP is 6.4 2. Infectious colitis with UTI ? Continue on Cipro and Flagyl from the ER she is tolerating a diet without any significant discomfort or abdominal pain ? Urine cultures pending but should be covered with Cipro 3. DM2 with neuro apathy ? Uncontrolled diabetes, will hold her home oral agents ? Continue with insulin ? Accu-Cheks ACHS ? We will monitor and make adjustment as necessary 4. Hypothyroidism ? Stable ? Continue with Synthroid ? Recently checked TSH was 3.79 5. Depression/anxiety ? Stable ? Continue with home medications DVT: Lovenox Medications at Discharge Home Medications albuterol sulfate 2.5 mg/3 mL (0.083 %) solution for nebulization 2.5 mg inhalation Q4H PRN PRN Sob &/Or Wheezing 04/11/18 lisinopril 2.5 mg tablet 2.5 mg PO DAILY BP 04/11/18 fluoxetine 40 mg capsule 40 mg PO DAILY DEPRESSION 02/12/19 atorvastatin 20 mg tablet 20 mg PO QHS CHOLESTEROL 10/06/19 metformin 500 mg tablet,extended release 24 hr 1,000 mg PO DAILY dm 03/29/21 ondansetron 4 mg disintegrating tablet 4 mg PO Q8H PRN nausea and vomiting #10 tabs 08/12/22 blood sugar diagnostic (Digital Vegauch Verio test strips) #100 ea 02/18/23 blood-glucose meter,continuous (Dexcom G7 Cement Tester Assistant) #1 ea 02/18/23 blood-glucose sensor (Dexcom G7 Sensor device) #3 ea 02/18/23 levothyroxine 200 mcg tablet 200 mcg PO DAILY #90 tabs 02/18/23 acetaminophen 500 mg tablet 500 - 1,000 mg PO Q6H PRN fever or pain 04/18/23 insulin aspart U-100 100 unit/mL (3 mL) subcutaneous pen (Novolog FlexPen U-100 Insulin aspart) 60 - 65 unit subcut TIDCM 04/18/23 insulin degludec 200 unit/mL (3 mL) subcutaneous pen (Tresiba FlexTouch U-200 insulin) 80 unit subcut DAILY 04/18/23 cefdinir 300 mg capsule 300 mg PO BID 7 days #14 caps 04/20/23 furosemide 20 mg tablet (Lasix) 20 mg PO DAILY #30 tabs 04/20/23 metronidazole 500 mg tablet 500 mg PO TID 7 days #21 tabs 04/20/23 Hospital Course Operations None Procedures None Summary of Care Provided Minutes Spent on Discharge: 34 Hospital Course: Per HPI: LEROY TYLER, is a 57 F who presented to the emergency department at [facility] due to abdominal pain that was diffuse but predominantly in the right upper quadrant. She reported she woke up with the pain around 2 AM and reported it was constant and achy in nature. Had no radiation and she reported that she feels bloated but has not had any vomiting. Mild nausea has been present intermittently. She has a history of cholecystectomy and also reports a chronic cough. She states that off may been worse over the last couple of days. She reports lower extremity edema that is chronic. She states is not really much different she seen her legs worse at times. Stools have been normal for her. She is not no hematemesis or hematochezia, no melena. She does have KODI and is noncompliant with her CPAP. When asked her if someone could bring it in from home she states it is packed away somewhere so she has not been compliant at all. She indicates she has chr onic UTIs but does not follow with anybody for this. She denies any current dysuria or urinary frequency. She is not on chronic suppressive therapy. Vital signs on presentation demonstrated temperature of 97.6, heart rate 105, blood pressure 150/80, respiratory rate 14 oxygen saturations were 96% on room air. Her chemistry shows a sodium of 131 however her blood glucose level is 430 and when corrected her actual sodium is 139. Her serum bicarb is 29 her anion gap is normal despite her severely elevated glucose. BUN and creatinine are normal. Liver functions are fairly unremarkable. Lipase is 26. Her UA is consistent with infection the patient does report she has issues with chronic UTIs however she is asymptomatic at this point. EKG shows a right bundle branch block with poor R wave progression but no ST-T wave changes concerning for acute ischemia and intervals are normal. Given her abdominal pain a CT of abdomen pelvis was performed and shows hepatomegaly with minimal increased markings at the right hepatorenal space and proximal focal thickening at the hepatic flexure consistent with colitis. Chest x-ray shows vascular congestion and possible CHF. Basic natruretic peptide has been ordered however the machine is down and currently we are unable to obtain a value. I requested an ABG and a D-dimer be performed and they are both pending at this time. Dr. Hidalgo, from general surgery was contacted with regards to her colitis and he recommended a course of Cipro Flagyl per discussion with emergency department physician. The plan was initially to discharge her home however they got her up to ambulate her and oxygen saturations dropped into the mid 80s. They have fluctuated since then at times she will be sitting and be in the 90s and then drop into the 80s. I am obtaining an ABG to rule out obesity hypoventilation syndrome and we will calculate a gradient to do so. As noted a D-dimer is pending and if this is elevated I will get a CTA of her chest and Dopplers of her legs with edema. Hospital Course: 1. Transient intermittent hypoxia which is likely multifactorial secondary to her morbid obesity as well as sleep apnea and diastolic CHF/HLD?57-year-old female presented to the hospital with abdominal pain that was felt to be colitis but then she was given be discharged home but was noticed to have intermittent hypoxic episodes down to like 87% on room air. She was started on Lasix which seems to have helped as she has not been needing significant amount of oxygen. She has had 2 ambulatory pulse ox is obtained during this hospitalization neither of which demonstrated the need for oxygen. I discussed with her the need to continue with Lasix on discharge as well as wear her CPAP at home and we also discussed lifestyle modifications for weight loss. I discussed with her the plan for discharge today she expressed understanding of the risk benefits of going home and would like to go home today. I do recommend that she follow-up with her PCP in 3 to 5 days for outpatient monitoring. 2. Infectious colitis with an E. coli UTI?colitis was interpreted on the CT scan and was discussed with general surgery by the ED physician. She was placed on a diet which she tolerated just fine and was started on Cipro and Flagyl. She is tolerated these antibiotics well and on the day of discharge was elected to transition her to cefdinir secondary to her SHAHEEN for the ciprofloxacin being 1 and having an intermediate resistance to Levaquin. She was continued on Flagyl and will take both of her antibiotics for another 7 days. 3. Type 2 diabetes with neuropathy, hypothyroidism, depression, anxiety are chronic medical conditions which complicate her care. Her home medications were continued where appropriate Physical Exam Narrative General: Alert, Oriented x3, Cooperative, No apparent distress HEENT: Atraumatic, PERRLA, EOMI, Normocephalic Oral: Moist Mucosa Neck: Supple, No JVD Lungs: Diminished, Normal air movement, No rhonchi, No wheeze, No rales Cardiovascular: Regular rate, Regular Rhythm, Normal S1, Normal S2, No murmurs Abdomen: Soft, Non Tender, Non-Distended, No Hepato-splenomegaly Extremities: Trace edema, Capillary Refill Less than 3 Seconds Skin: No rashes, No breakdown Musculoskeletal: No Tenderness to Palpation of Joints or Extremities Neurological: Cranial nerves II-XII grossly intact, Motor Exam 5/5 strength throughout, Sensory exam intact to light touch and pain Psych/Mental Status: Normal Affect, Appropriate Weight / BMI Weight Weight: 259 lb 11.272 oz Body Mass Index (BMI) 49.0 ABG / Lab / Microbiology Data 04/20/23 06:45 04/20/23 06:45 Laboratory: Laboratory Results - last 24 hr 04/19/23 12:26: POC Glucose 348 H 04/19/23 16:16: POC Glucose 171 H 04/19/23 18:46: POC Glucose 185 H 04/19/23 20:37: POC Glucose 146 H 04/20/23 06:36: POC Glucose 352 H 04/20/23 06:45: WBC 9.2, RBC 4.58, Hgb 12.3, Hct 38.8, MCV 84.7, MCH 26.9 L, MCHC 31.7 L, RDW Std Deviation 45.1 H, RDW Coeff of [place] 14.8 H, Plt Count 213, MPV 10.5, Immature Gran % (Auto) 3.700 H, Neut % (Auto) 58.1, Lymph % (Auto) 27.2, [place] % (Auto) 5.5, Eos % (Auto) 4.2, Baso % (Auto) 1.3 H, Absolute Neuts (auto) 5.4, Absolute Lymphs (auto) 2.51, Nucleated RBC % 0, Sodium 128 L, Potassium 4.2, Chloride 92 L, Carbon Dioxide 29.0, Anion Gap 7, BUN 26 H, Creatinine 1.02, Estim Creat Clear Calc 46.47, Est GFR (MDRD) Af Amer 72, Est GFR (MDRD) Non-Af 60, BUN/Creatinine Ratio 25.5 H, Glucose 347 H, Calcium 9.2 Microbiology: Microbiology 04/18/23 10:45 Urine, Clean Catch Urine Culture - Final Escherichia coli 04/20/23 05:20 Mucosa - Nose Respiratory Panel (PCR) - Final 04/18/23 17:45 Nasal Secretion SARS-CoV-2 Antigen (Rapid) - Final D/C Instructions Discharge Diet: Low fat / Low cholesterol, 6 Cup Fluid Restriction and Carb Control Diet Call your doctor if you observe: Fever of 101 or Higher, Shortness of breath, Dizziness, Fainting spells, Swelling in the ankles, Chest pain and Increased palpitations (irregular heartbeat) Meaningful Use Info Meaningful Use Diagnoses (Choose all that apply): None applicable Discharge Plan Admission Admit Date/Time: 04/18/23 15:10 Attending Provider: Sergo Bustillos Primary Care Provider: Tj Douglass Consulting Providers: Cecilia Villa Instructions Additional Instructions / Restrictions: Follow-up with your PCP in 3 to 5 days to monitor your renal function as you were started on Lasix to try to help take fluid off for you given that your echocardiogram demonstrated stage I diastolic dysfunction. I also recommend a fluid restriction and closer adherence to diabetic diet. Also recommend restarting your CPAP at night as part of your hypoxia issues are related to sleep apnea. Discharge Orders/Prescriptions Prescriptions: New metronidazole 500 mg Tablet 500 mg PO TID 7 Days Qty: 21 0RF cefdinir 300 mg capsule 300 mg PO BID 7 Days Qty: 14 0RF furosemide [Lasix] 20 mg tablet 20 mg PO DAILY Qty: 30 0RF Continued albuterol sulfate 2.5 mg /3 mL (0.083 %) solution for nebulization 2.5 mg INHALATION Q4H PRN PRN (Reason: Sob &/Or Wheezing) lisinopril 2.5 mg tablet 2.5 mg PO DAILY (DME) Dexcom G7 Sensor Device See Rx Instructions .Route Qty: 3 5RF Rx Instructions: 1 sensor q 10 days (DME) Dexcom G7 Cement Tester Assistant Misc See Rx Instructions .Route Qty: 1 0RF Rx Instructions: As directed levothyroxine 200 mcg tablet 200 mcg PO DAILY Qty: 90 1RF (DME) OneTouch Verio test strips Strip See Rx Instructions .Route Qty: 100 5RF Rx Instructions: 4x/day fluoxetine 40 MG capsule 40 mg PO DAILY Patient Comments: TAKE 1 CAPSULE BY MOUTH EVERY DAY atorvastatin 20 MG tablet 20 mg PO QHS metformin 500 mg tablet extended release 24 hr 1,000 mg PO DAILY Patient Comments: PT STATES TAKES BIDCM NEEDED. PER EXTERNAL HISTORY MED HAS NOT BEEN FILLED RECENTLY. ondansetron 4 mg tablet,disintegrating 4 mg PO Q8H PRN (Reason: nausea and vomiting) Qty: 10 0RF insulin aspart U-100 [Novolog FlexPen U-100 Insulin] 100 unit/mL (3 mL) insulin pen 60 - 65 unit SUBCUT TIDCM insulin degludec [Tresiba FlexTouch U-200] 200 unit/mL (3 mL) insulin pen 80 unit SUBCUT DAILY acetaminophen 500 mg tablet 500 - 1,000 mg PO Q6H PRN (Reason: fever or pain) Referrals / Follow Up: Tj Douglass MD [Primary Care Provider] - Within 1 Week Disposition Disposition (needs filled in before D/C Order can be placed): Home, Self Care Charges/Coding Visit Charges Inpatient E&M: 20328 Disch Hosp >30min
--- NOTE | 2023-05-17 10:09 | CCN.REFER ---
UNABLE TO REACH PATIENT AFTER MULTIPLE CALLS OVER LAST MONTH TO DISCUSS AND ADMIT TO CCN.
== END 2023-04-20 11:50 | disposition home or self-care (01) | DRG 292 ==
LOC: ED 10:50 → PCU 16:00
PROVIDERS: Admitting Provider Internal Medicine; Emergency Provider Emergency Medicine; PCP Family Medicine; Visit Provider Family Medicine
DX: I11.0 Hypertensive heart disease with heart failure (principal); N39.0 Urinary tract infection, site not specified; A04.4 Other intestinal Escherichia coli infections; E66.2 Morbid (severe) obesity with alveolar hypoventilation; Z68.42 Body mass index [BMI] 45.0-49.9, adult; E11.40 Type 2 diabetes mellitus with diabetic neuropathy, unspecified; E03.9 Hypothyroidism, unspecified; B96.20 Unspecified Escherichia coli [E. coli] as the cause of diseases classified elsewhere; I50.32 Chronic diastolic (congestive) heart failure; Z79.4 Long term (current) use of insulin; E11.65 Type 2 diabetes mellitus with hyperglycemia; F32.A Depression, unspecified; E78.5 Hyperlipidemia, unspecified; F41.9 Anxiety disorder, unspecified; R09.02 Hypoxemia; Z90.49 Acquired absence of other specified parts of digestive tract; Z91.198 Patient's noncompliance with other medical treatment and regimen for other reason; Z79.84 Long term (current) use of oral hypoglycemic drugs; Z79.899 Other long term (current) drug therapy; Z87.891 Personal history of nicotine dependence
CPT/HCPCS: 36415; 36600; 71046; 74177; 80048; 80053; 81001; 82803; 82962; 83690; 83735; 83880; 84100; 85025; 85379; 87077; 87086; 87088; 87186; 87633; 87811; 93005; 93306; 94668; 97802; 99285; Q9957; Q9967; A4216; C8929; J1940; J2405

== ENCOUNTER → 2023-12-23 | Outpatient (CLI) | payer MEDICAID, SELFPAY ==
[2023-12-23 15:30] LABS: ALB/GLOB Ratio 0.5 RATIO (0.9-2.4); AST(SGOT) 42 U/L (15-37); Alanine Aminotransfer ALT/SGPT 48 U/L (13-56); Albumin, Serum 3.1 g/dL (3.2-5.0); Alkaline Phosphatase 189 U/L (45-117); Anion Gap 5 (5-15); BUN 12 mg/dL (7-18); BUN/Creat Ratio 13.5 RATIO (10-20); Calcium,Total 8.9 mg/dL (8.5-10.1); Chloride 95 mmol/L (98-107); Creatinine, Serum 0.89 mg/dL (0.55-1.02); EST Glomerular Filtration Rate 69 mL/min (>60); Est Glom Filt Rate - Afr Amer 84 mL/min (>60); Glucose 419 mg/dL (74-106); Potassium 4.4 mmol/L (3.5-5.1); Protein, Total 9.1 g/dL (6.4-8.2); Sodium Level 129 mmol/L (136-145); T4 Free Direct 0.57 ng/dL (0.76-1.46)
== END | disposition home or self-care (01) ==
LOC: LAB 14:02
PROVIDERS: PCP Family Medicine; Referring Provider Nurse Practitioner Family; Visit Provider Nurse Practitioner Family
DX: E03.8 Other specified hypothyroidism (principal); N18.31 Chronic kidney disease, stage 3a; E06.3 Autoimmune thyroiditis; E87.5 Hyperkalemia
CPT/HCPCS: 36415; 80053; 84439; 84443

== ENCOUNTER 2024-01-05 12:38 | Emergency (ER) | payer MEDICAID, SELFPAY ==
[2024-01-05 12:38] VITALS: BP 130/87; PULSE 88; RESP 16; TEMP 35.6; O2SAT 94; BMI 45.5
--- NOTE | 2024-01-05 12:53 | RAD_ITS ---
HISTORY: chest pain. TECHNIQUE: XR Chest 1 View. COMPARISON: 04/10/2023. FINDINGS: CARDIOMEDIASTINAL BORDERS: Cardiac silhouette again upper limits of normal in size. Mediastinal contour unremarkable. LUNGS: Chronic linear opacities in the right midlung and left lung base again seen. PLEURA: No pleural effusion or pneumothorax seen. OSSEOUS STRUCTURES: Degenerative change. RAD/Chest 1 View (Portable) IMPRESSION: No significant interval change. Mild atelectasis or scarring in the lungs. Electronically Signed: Danni Lenz MD at 13:59 EDT ,
--- NOTE | 2024-01-05 12:53 | EKG12_ITS ---
Test Reason : CHEST PAIN Blood Pressure : / mmHG Vent. Rate : 088 BPM Atrial Rate : 088 BPM P-R Int : 118 ms QRS Dur : 126 ms QT Int : 386 ms P-R-T Axes : 059 -65 053 degrees QTc Int : 467 ms Normal sinus rhythm Right bundle branch block Left anterior fascicular block Bifascicular block Minimal voltage criteria for LVH, may be normal variant ( R in aVL ) Abnormal ECG Confirmed by YAN BRODERICK, CONNIE ([id number]), newspaper managing editor BRITTANY NGUYEN ([id number]) on 01/06/2024 10:05:12 AM Referred By: MELLISSA/MICK Confirmed By:CONNIE HEREDIA MD
--- NOTE | 2024-01-05 13:02 | EDS_ITS ---
HPI <ALISA Kinsey - Last Filed: 01/05/24 15:55> History of Present Illness Chief Complaint: Chest Pain Narrative Narrative: 58-year-old female with past medical history of hypertension, type 2 diabetes states over the last 3 days she has had nausea and low blood sugars in the 90s. She also had an ache in her right upper back after waking up for few days. This morning at 10 AM she was getting out of bed and developed throbbing right-sided chest pain and pressure. No radiation. No associated shortness of breath or diaphoresis. She still has ongoing nausea but no vomiting. She denies postprandial chest or abdominal pain. She has had her gallbladder removed. Denies smoking, cardiac history, or DVT/PE. PFSH <ALISA Kinsey - Last Filed: 01/05/24 15:55> [facility] Medical History Hyperkalemia Noncompliance with medication regimen Depression Hypothyroid History of frequent headaches Back pain Bloody stool Thyroid disease Anemia Diabetes Arthritis Morbid obesity Hyperlipidemia Hypothyroidism Hypertension Home Medications ?Medication ?Instructions ?Recorded ?Last Taken ?Type albuterol sulfate 2.5 mg/3 mL 2.5 mg inhalation Q4H PRN PRN Sob 04/11/18 04/17/23 History (0.083 %) solution for nebulization &/Or Wheezing fluoxetine 40 mg capsule 40 mg PO DAILY DEPRESSION 02/12/19 04/17/23 History atorvastatin 20 mg tablet 20 mg PO QHS CHOLESTEROL 10/06/19 04/17/23 History blood-glucose meter,continuous #1 ea 02/18/23 Unknown Rx (Dexcom G7 [employer]) blood-glucose sensor (Dexcom G7 #3 ea 02/18/23 Unknown Rx Sensor device) acetaminophen 500 mg tablet 500 - 1,000 mg PO Q6H PRN fever or 04/18/23 04/14/23 History pain furosemide 20 mg tablet (Lasix) 20 mg PO DAILY #30 tabs 04/20/23 Unknown Rx amlodipine 2.5 mg tablet 2.5 mg PO DAILY #90 tabs 09/23/23 Unknown Rx blood sugar diagnostic (OneTouch #100 ea 09/23/23 Unknown Rx Verio test strips) dulaglutide 1.5 mg/0.5 mL 1.5 mg (0.5 mL) subcut QWEEK #2 mL 09/23/23 Unknown Rx subcutaneous pen injector (Trulicity) insulin regular hum U-500 conc 500 130 unit (0.26 mL) subcut TID 09/23/23 Unknown Rx unit/mL(3 mL) subcut pen (Humulin #23.4 mL R U-500 (Conc) Insulin Kwikpen) levothyroxine 200 mcg tablet 200 mcg PO DAILY #90 tabs 09/23/23 Unknown Rx metformin 500 mg tablet,extended 1,000 mg (2 x 500 mg) PO BID dm 09/23/23 Unknown Rx release 24 hr #360 tabs Allergy/AdvReac Type Severity Reaction Status Date / Time codeine Allergy Angioedema Verified 01/05/24 12:41 nitrofurantoin Allergy edema Verified 01/05/24 12:41 Penicillins Allergy Rash Verified 01/05/24 12:41 Sulfa (Sulfonamide Allergy Rash Verified 01/05/24 12:41 Antibiotics) sulfamethoxazole (Bactrim) Allergy Unknown Verified 01/05/24 12:41 trimethoprim (Bactrim) Allergy Unknown Verified 01/05/24 12:41 Family History Other Cancer Surgical History Hx of cholecystectomy Social History household members: none Smoking Status: Former smoker alcohol intake: current alcohol intake frequency: holidays/special occasions only substance use type: does not use ROS <ALISA Kinsey - Last Filed: 01/05/24 15:55> ROS ED ROS Narrative Constitutional: Negative for fever, chills, malaise. CVS: Positive for chest pain. Negative for palpitations, syncope. Respiratory: Positive for cough. Negative for shortness of breath. GI: Positive for nausea. Negative for abdominal pain, vomiting. EXAM <ALISA Kinsey - Last Filed: 01/05/24 15:55> Physical Exam Narrative Exam Narrative: Insert CONST: Patient sitting in no acute distress. EYES: Normal inspection. NECK: Normal inspection. RESP: No respiratory distress, CTAB. Tender to palpation in the right lateral chest wall. CVS: Regular rate and rhythm, no murmur, no gallop. ABD: Soft with mild right upper quadrant tenderness, negative Levy sign, no guarding or rebound, nondistended, no hepatosplenomegaly. SKIN: Color normal, no rash, warm, dry, intact. EXTREMITIES: Normal appearance, no pedal edema. NEURO: Alert and answering questions appropriately. PSYCH: Normal affect. Const Vital Signs: 01/05/24 12:38 01/05/24 13:40 01/05/24 14:00 Temperature 96.1 F L Temperature Source Temporal Pulse Rate 88 86 82 Respiratory Rate 16 25 H 25 H Blood Pressure 130/87 H 120/75 117/83 H Blood Pressure Mean 101 90 94 Pulse Ox 94 Oxygen Delivery Method Room Air 01/05/24 15:00 Temperature Temperature Source Pulse Rate Respiratory Rate Blood Pressure 114/67 Blood Pressure Mean 82 Pulse Ox Oxygen Delivery Method <Dr. Junior Navarro MD - Last Filed: 01/05/24 14:52> Physical Exam Const Vital Signs: 01/05/24 12:38 01/05/24 13:40 01/05/24 14:00 Temperature 96.1 F L Temperature Source Temporal Pulse Rate 88 86 82 Respiratory Rate 16 25 H 25 H Blood Pressure 130/87 H 120/75 117/83 H Blood Pressure Mean 101 90 94 Pulse Ox 94 Oxygen Delivery Method Room Air 01/05/24 15:00 Temperature Temperature Source Pulse Rate Respiratory Rate Blood Pressure 114/67 Blood Pressure Mean 82 Pulse Ox Oxygen Delivery Method [facility] <ALISA Kinsey - Last Filed: 01/05/24 15:55> [facility] Narrative Medical decision making narrative: Differential: Viral URI, pneumonia, ACS, musculoskeletal Patient presents with right-sided chest pain that started this morning. She has also had few days of nausea. She appears well and nontoxic, afebrile and hemodynamically stable. She has a normal cardiopulmonary exam. She is reproducible tenderness in the right lateral chest wall. No skin changes or signs of zoster. She is also mildly tender in the right upper quadrant; has history of cholecystectomy. EKG is normal sinus rhythm with bifascicular block and no acute ischemic changes. This is similar to the EKG on 04/18/2023. Serial troponins are 38 and 31. CBC unremarkable. BMP shows sodium of 133, glucose 176, no DKA. Overall LFTs and lipase are unremarkable. CXR shows no acute process. With her reproducible chest wall tenderness which somewhat improved after Toradol I suspect this is musculoskeletal. I recommended ice, Tylenol, and primary care follow-up. Return precautions discussed. She was discharged in stable condition. I have personally performed a face to face assessment of the patient and have reviewed the LAZARO Note. I performed a substantive portion of the visit including all aspects of the following. My christianson findings include: 58-year-old female with right lateral chest discomfort. Not associated with ex ertion. No dyspnea. No fall injury or trauma. No cardiac history. Patient denies any history of injury or trauma to the right lateral chest or shoulder. Exam is [well-appearing 58-year-old female. Vital signs stable afebrile. Pulse ox 94% on room air no signs of pox. No distress. H EENT exam unremarkable. Neck nontender. No JVD. Lungs clear to auscultation. Heart regular rhythm no murmur. Patient has some mild reproducible lateral chest wall discomfort. There is no ecchymosis. There is no bruising. There is no redness or warmth or discoloration. There is no rash. There is no bony deformity. Anterior chest and left chest are nontender. Abdomen soft nontender. Moving all 4 extremities. 5 of 5 parts counter representative strength. Equal symmetrical radial pulses. Normal range of motion of both shoulders. Dorsi plantarflexion intact. Calves nontender without edema. Neurologically she is awake and alert. Very benign exam.] Medical Decision Making [patient with atypical right lateral chest reproducible pain. Cardiac workup done. I think this is musculoskeletal pain however. Workup is negative. Initial troponin is 3 8. Patient be discharged home with outpatient follow-up.] Other additions or changes: [None] Lab Data Attestation: I reviewed the patient's lab results. Labs: Laboratory Results - last 24 hr 01/05/24 01/05/24 13:00 14:55 WBC 10.3 RBC 4.57 Hgb 12.3 Hct 40.0 MCV 87.5 MCH 26.9 L MCHC 30.8 L RDW Std Deviation 46.5 H RDW Coeff of [place] 14.6 Plt Count 232 MPV 9.8 Immature Gran % (Auto) 1.100 H Neut % (Auto) 67.7 Lymph % (Auto) 23.2 George % (Auto) 5.5 Eos % (Auto) 1.9 Baso % (Auto) 0.6 Absolute Neuts (auto) 7.0 Absolute Lymphs (auto) 2.40 Nucleated RBC % 0 Sodium 133 L Potassium 4.2 Chloride 99 Carbon Dioxide 30.0 Anion Gap 4 L BUN 13 Creatinine 0.84 Estim Creat Clear Calc 84.46 Est GFR (MDRD) Af Amer 90 Est GFR (MDRD) Non-Af 75 BUN/Creatinine Ratio 15.5 Glucose 176 H Calcium 9.4 Total Bilirubin 0.70 AST 39 H ALT 38 Alkaline Phosphatase 155 H Troponin I High Sens 38 31 Total Protein 9.1 H Albumin 3.1 L Globulin 6.0 H Albumin/Globulin Ratio 0.5 L Lipase 32 Radiography Diagnostic Testing: Clinical Impression(s) from Imaging Studies Chest X-Ray 01/05/24 12:53 IMPRESSION: No significant interval change. Mild atelectasis or scarring in the lungs. Electronically Signed: Danni Lenz MD at 13:59 EDT , EKG Initial EKG: Attestation: I personally reviewed and interpreted this EKG as follows: Interpretation: Sinus Rhythm, No Acute Injury Pattern and RBBB Comments: Normal sinus rhythm at 88 bpm RBBB, left anterior fascicular block No acute ST changes <Dr. Junior Navarro MD - Last Filed: 01/05/24 14:52> [facility] Narrative Medical decision making narrative: Patient presents with right-sided chest pain that started this morning. She has also had few days of nausea. She appears well and nontoxic, afebrile and hemodynamically stable. She has a normal cardiopulmonary exam. She is reproducible tenderness in the right lateral chest wall. No skin changes or signs of zoster. She is also mildly tender in the right upper quadrant; has history of cholecystectomy. EKG is normal sinus rhythm with bifascicular block and no acute ischemic changes. This is similar to the EKG on 04/18/2023. Serial troponins are 38, delta pending. CBC unremarkable. BMP shows sodium of 133, glucose 176, no DKA. Overall LFTs and lipase are unremarkable. I have personally performed a face to face assessment of the patient and have reviewed the LAZARO Note. I performed a substantive portion of the visit including all aspects of the following. My christianson findings include: 58-year-old female with right lateral chest discomfort. Not associated with exertion. No dyspnea. No fall injury or trauma. No cardiac history. Patient denies any history of injury or trauma to the right lateral chest or shoulder. Exam is [well-appearing 58-year-old female. Vital signs stable afebrile. Pulse ox 94% on room air no signs of pox. No distress. H EENT exam unremarkable. Neck nontender. No JVD. Lungs clear to auscultation. Heart regular rhythm no murmur. Patient has some mild reproducible lateral chest wall discomfort. There is no ecchymosis. There is no bruising. There is no redness or warmth or discoloration. There is no rash. There is no bony deformity. Anterior chest and left chest are nontender. Abdomen soft nontender. Moving all 4 extremities. 5 of 5 parts counter representative strength. Equal symmetrical radial pulses. Normal range of motion of both shoulders. Dorsi plantarflexion intact. Calves nontender without edema. Neurologically she is awake and alert. Very benign exam.] Medical Decision Making [patient with atypical right lateral chest reproducible pain. Cardiac workup done. I think this is musculoskeletal pain however. Workup is negative. Initial troponin is 3 8. Patient be discharged home with outpatient follow-up.] Other additions or changes: [None] History & Record Review Discussion w/independent historian: Patient Lab Data Lab results narrative: CBC normal. White count of 10. H&H 12 and 40. Platelets 232. Electrolytes show sodium 133. Gap 4. Normal BUN and creatinine. Glucose 176. Liver enzymes unremarkable. Lipase normal at 32. Labs: Laboratory Results - last 24 hr 01/05/24 01/05/24 13:00 14:55 WBC 10.3 RBC 4.57 Hgb 12.3 Hct 40.0 MCV 87.5 MCH 26.9 L MCHC 30.8 L RDW Std Deviation 46.5 H RDW Coeff of [place] 14.6 Plt Count 232 MPV 9.8 Immature Gran % (Auto) 1.100 H Neut % (Auto) 67.7 Lymph % (Auto) 23.2 George % (Auto) 5.5 Eos % (Auto) 1.9 Baso % (Auto) 0.6 Absolute Neuts (auto) 7.0 Absolute Lymphs (auto) 2.40 Nucleated RBC % 0 Sodium 133 L Potassium 4.2 Chloride 99 Carbon Dioxide 30.0 Anion Gap 4 L BUN 13 Creatinine 0.84 Estim Creat Clear Calc 84.46 Est GFR (MDRD) Af Amer 90 Est GFR (MDRD) Non-Af 75 BUN/Creatinine Ratio 15.5 Glucose 176 H Calcium 9.4 Total Bilirubin 0.70 AST 39 H ALT 38 Alkaline Phosphatase 155 H Troponin I High Sens 38 31 Total Protein 9.1 H Albumin 3.1 L Globulin 6.0 H Albumin/Globulin Ratio 0.5 L Lipase 32 Radiography Chest X-Ray - ED: 1 View, Read by ED Physician, Read by Radiologist, Normal, Heart, Lungs, Mediastinum, Bony Structures, No Acute Disease and Chronic Changes Diagnostic Testing: Clinical Impression(s) from Imaging Studies Chest X-Ray 01/05/24 12:53 IMPRESSION: No significant interval change. Mild atelectasis or scarring in the lungs. Electronically Signed: Danni Lenz MD at 13:59 EDT Reading Location ID and State: [facility] / [place] Tel , Service support , Chest x-ray shows normal cardiac silhouette mediastinum. Interpreted by myself and radiologist. No acute abnormality. Discharge Plan Triage Chief Complaint: Chest Pain ED Midlevel Provider: Celia Paige ED Provider: Junior Navarro Dx/Rx/DC Orders Clinical Impression: Chest pain, History of diabetes mellitus, type II Instructions: ED Chest Pain, Uncertain Cause Prescriptions: No Action albuterol sulfate 2.5 mg /3 mL (0.083 %) solution for nebulization 2.5 mg INHALATION Q4H PRN PRN (Reason: Sob &/Or Wheezing) (DME) Dexcom G7 Sensor Device See Rx Instructions .Route Qty: 3 5RF Rx Instructions: 1 sensor q 10 days (DME) Dexcom G7 [employer] Misc See Rx Instructions .Route Qty: 1 0RF Rx Instructions: As directed Trulicity 1.5 mg/0.5 mL pen injector 1.5 mg subcut QWEEK Qty: 2 3RF Humulin R U-500 (Conc) Kwikpen 500 unit/mL (3 mL) insulin pen 130 unit subcut TID Qty: 23.4 5RF amlodipine 2.5 mg tablet 2.5 mg PO DAILY Qty: 90 1RF (DME) OneTouch Verio test strips Strip See Rx Instructions .Route Qty: 100 5RF Rx Instructions: 4x/day levothyroxine 200 mcg tablet 200 mcg PO DAILY Qty: 90 1RF metformin 500 mg tablet extended release 24 hr 1,000 mg PO BID Qty: 360 1RF fluoxetine 40 MG capsule 40 mg PO DAILY Patient Comments: TAKE 1 CAPSULE BY MOUTH EVERY DAY atorvastatin 20 MG tablet 20 mg PO QHS acetaminophen 500 mg tablet 500 - 1,000 mg PO Q6H PRN (Reason: fever or pain) furosemide [Lasix] 20 mg tablet 20 mg PO DAILY Qty: 30 0RF Primary Care Provider: OLU ORTIZ Referrals: Tj Douglass MD [Non-Staff] - Activity Restrictions/Additional Instructions: Take Tylenol as needed. If not improving follow-up with your primary care doctor. If symptoms worsen return to ER. Print Language: Grenadian Disposition Disposition: Home, Self Care
[2024-01-05 13:08] LABS: Basophil# 0.06 X10^3/uL; Basophil% 0.6 % (0-1); Eosinophils% 1.9 % (0-5); Hemoglobin 12.3 g/dL (12.0-15.0); Lymphocyte % 23.2 % (19-41); Mean Corp Hgb Conc 30.8 g/dL (32-36); Mean Corpuscular Hgb 26.9 pg (27.0-32.0); Mean Corpuscular Volume 87.5 fL (81-99); Mean Platelet Vol. 9.8 fl (6.2-12.0); Monocyte# 0.57 X10^3/uL; Monocyte% 5.5 % (0-10); NRBC Flagged by Analyzer 0 % (0-5); Neutrophil % 67.7 % (47-70); Platelet Count 232 K/mm3 (150-450); RBC Distribution Width CV 14.6 % (11.6-14.6); RBC Distribution Width SD 46.5 fl (35.1-43.9); Red Blood Count 4.57 M/mm3 (4.2-5.4); White Blood Count 10.3 K/mm3 (4.4-11.0)
[2024-01-05 13:31] LABS: ALB/GLOB Ratio 0.5 RATIO (0.9-2.4); AST(SGOT) 39 U/L (15-37); Alanine Aminotransfer ALT/SGPT 38 U/L (13-56); Albumin, Serum 3.1 g/dL (3.2-5.0); Alkaline Phosphatase 155 U/L (45-117); Anion Gap 4 (5-15); BUN 13 mg/dL (7-18); BUN/Creat Ratio 15.5 RATIO (10-20); Calcium,Total 9.4 mg/dL (8.5-10.1); Chloride 99 mmol/L (98-107); Creatinine, Serum 0.84 mg/dL (0.55-1.02); EST Glomerular Filtration Rate 75 mL/min (>60); Est Glom Filt Rate - Afr Amer 90 mL/min (>60); Estimated Creatinine Clearance 84.46 ml/min; Glucose 176 mg/dL (74-106); Lipase 32 U/L (13-75); Potassium 4.2 mmol/L (3.5-5.1); Protein, Total 9.1 g/dL (6.4-8.2); Sodium Level 133 mmol/L (136-145); Troponin-I HS 38 pg/mL (3.0-54.0)
[2024-01-05] MEDS: Aspirin 325 MG Tablet PO (13:32)
[2024-01-05 13:40] VITALS: BP 120/75; PULSE 86; RESP 25
[2024-01-05 14:00] VITALS: BP 117/83; PULSE 82; RESP 25
[2024-01-05] MEDS: Ketorolac 15 MG/ML Vial IV (14:24)
[2024-01-05 15:00] VITALS: BP 114/67
[2024-01-05 15:49] LABS: Troponin-I HS 31 pg/mL (3.0-54.0)
[2024-01-05 16:00] VITALS: BP 101/44; PULSE 73; RESP 18; TEMP 35.9; O2SAT 91
== END 2024-01-05 16:02 | disposition home or self-care (01) ==
PROVIDERS: Physician Assistant; Emergency Provider Emergency Medicine; PCP Nurse Practitioner Adult Health; Visit Provider Emergency Medicine
DX: R07.9 Chest pain, unspecified (principal); E11.9 Type 2 diabetes mellitus without complications; Z79.4 Long term (current) use of insulin; I10 Essential (primary) hypertension; F32.A Depression, unspecified; Z87.891 Personal history of nicotine dependence; Z79.51 Long term (current) use of inhaled steroids; Z79.899 Other long term (current) drug therapy; Z79.84 Long term (current) use of oral hypoglycemic drugs
CPT/HCPCS: 71045; 80053; 83690; 84484; 85025; 93005; 96374; 99283; A4216

== ENCOUNTER 2024-03-04 06:48 | Inpatient (IN) | payer MEDICAID, SELFPAY ==
[2024-03-04] VITALS (18 sets, daily range): BP systolic 95–157; BP diastolic 52–95; PULSE 83–116; RESP 16–30; TEMP 36.1–37.3; O2SAT 88–100; BMI 45.5; BMI 45.8
--- NOTE | 2024-03-04 07:19 | EX.ED.DYSGE1 ---
HPI History of Present Illness Chief Complaint: General Illness [facility] Medical History Acute bronchitis, unspecified Hyperkalemia Noncompliance with medication regimen Depression Hypothyroid History of frequent headaches Back pain Bloody stool Thyroid disease Anemia Diabetes Arthritis Morbid obesity Hyperlipidemia Hypothyroidism Hypertension Home Medications ?Medication ?Instructions ?Recorded ?Last Taken ?Type albuterol sulfate 2.5 mg/3 mL 2.5 mg inhalation Q4H PRN PRN Sob 04/11/18 04/17/23 History (0.083 %) solution for nebulization &/Or Wheezing fluoxetine 40 mg capsule 40 mg PO DAILY DEPRESSION 02/12/19 04/17/23 History atorvastatin 20 mg tablet 20 mg PO QHS CHOLESTEROL 10/06/19 03/02/24 History blood-glucose meter,continuous #1 ea 02/18/23 Unknown Rx (Dexcom G7 [employer]) blood-glucose sensor (Dexcom G7 #3 ea 02/18/23 Unknown Rx Sensor device) acetaminophen 500 mg tablet 500 - 1,000 mg PO Q6H PRN fever or 04/18/23 03/03/24 History pain furosemide 20 mg tablet (Lasix) 20 mg PO DAILY #30 tabs 04/20/23 Unknown Rx amlodipine 2.5 mg tablet 2.5 mg PO DAILY #90 tabs 09/23/23 03/03/24 Rx blood sugar diagnostic (OneTouch #100 ea 09/23/23 Unknown Rx Verio test strips) dulaglutide 1.5 mg/0.5 mL 1.5 mg (0.5 mL) subcut QWEEK #2 mL 09/23/23 03/02/24 Rx subcutaneous pen injector (Trulicity) insulin regular hum U-500 conc 500 130 unit (0.26 mL) subcut TID 09/23/23 03/03/24 Rx unit/mL(3 mL) subcut pen (Humulin #23.4 mL R U-500 (Conc) Insulin Kwikpen) levothyroxine 200 mcg tablet 200 mcg PO DAILY #90 tabs 09/23/23 03/03/24 Rx metformin 500 mg tablet,extended 1,000 mg (2 x 500 mg) PO BID dm 09/23/23 Unknown Rx release 24 hr #360 tabs nirmatrelvir 300 mg (150 mg See Rx Instructions PO .COMPLEX 01/22/24 Unknown Rx x2)-ritonavir 100 mg tablet,dose #30 tabs pack (Paxlovid) Allergy/AdvReac Type Severity Reaction Status Date / Time codeine Allergy Angioedema Verified 03/04/24 06:49 nitrofurantoin Allergy edema Verified 03/04/24 06:49 Penicillins Allergy Rash Verified 03/04/24 06:49 Sulfa (Sulfonamide Allergy Rash Verified 03/04/24 06:49 Antibiotics) sulfamethoxazole (Bactrim) Allergy Unknown Verified 03/04/24 06:49 trimethoprim (Bactrim) Allergy Unknown Verified 03/04/24 06:49 Family History Other Cancer Surgical History Hx of cholecystectomy Social History household members: none Smoking Status: Former smoker alcohol intake: current alcohol intake frequency: holidays/special occasions only substance use type: does not use EXAM Physical Exam Const Vital Signs: 03/04/24 06:48 03/04/24 06:48 03/04/24 06:51 Temperature 97.9 F 96.9 F L Temperature Source Temporal Temporal Pulse Rate 116 H 116 H Respiratory Rate 24 H 24 H Respiratory Effort Short of Breath Blood Pressure 157/65 H 157/65 H Blood Pressure Mean 95 95 Pulse Ox 99 99 Oxygen Delivery Method Oxygen Flow Rate (L/min) 03/04/24 07:50 03/04/24 07:51 03/04/24 08:00 Temperature 99.0 F 99.0 F Temperature Source Oral Oral Pulse Rate 101 H 102 H Respiratory Rate 23 H 18 Respiratory Effort Blood Pressure 113/68 126/63 H Blood Pressure Mean 83 84 Pulse Ox 97 96 97 Oxygen Delivery Method Nasal Cannula Nasal Cannula Nasal Cannula Oxygen Flow Rate (L/min) 3 3 3 03/04/24 08:48 03/04/24 09:00 03/04/24 10:00 Temperature 97.8 F 98.1 F 97.7 F L Temperature Source Temporal Oral Temporal Pulse Rate 101 H 105 H 102 H Respiratory Rate 30 H 20 H 18 Respiratory Effort Blood Pressure 95/55 L 102/52 L 102/52 L Blood Pressure Mean 68 68 68 Pulse Ox 100 91 91 Oxygen Delivery Method Room Air Room Air Nasal Cannula Oxygen Flow Rate (L/min) 2 03/04/24 10:00 03/04/24 10:04 03/04/24 10:37 Temperature 98.3 F Temperature Source Pulse Rate 102 H 95 Respiratory Rate 18 21 H Respiratory Effort Blood Pressure 102/52 L 105/58 L Blood Pressure Mean 68 73 Pulse Ox 88 98 99 Oxygen Delivery Method Room Air Nasal Cannula Oxygen Flow Rate (L/min) 3 03/04/24 11:00 Temperature 98.0 F Temperature Source Oral Pulse Rate 102 H Respiratory Rate 16 Respiratory Effort Blood Pressure 126/72 H Blood Pressure Mean 90 Pulse Ox 97 Oxygen Delivery Method Nasal Cannula Oxygen Flow Rate (L/min) 3 MDM MDM MDM Narrative Medical decision making narrative: HISTORY OF PRESENT ILLNESS: 58-year-old female presents with multiple complaints. She endorses sore throat, cough, nausea vomiting, bladder infection. Notes that she is currently on antibiotics. As well as pain all over. The patient further states she has had no sick contacts. She denies chest pain or shortness of breath. Notes chronic leg swelling. Notes her blood sugars were in the 200s. Notes her vomitus is nonbloody nonbilious. REVIEW OF SYSTEMS: Pertinent positives: As per HPI Pertinent negatives: Chest pain, shortness of breath, fever PHYSICAL EXAM: Nursing triage notes reviewed, Vital signs reviewed Constitutional: please see mdm HENT: MMM Eyes: Pupils equal round and reactive to light, Extraocular muscles intact Neck: No stridor, no JVD, full neck ROM Lungs: Clear to auscultation, No wheezing or rales. No increased work of breathing, no conversational dyspnea, no accessory muscle use, no nasal flaring. No respiratory distress noted Heart: fast rate but regular rhythm, No murmurs, No rubs and No gallops, 2+ distal pulses (radial, femoral, posterior tibial) in all extremities Abdomen: Soft, abdominal exam limited by obesity, within the limits there is no appreciable tenderness, rigidity, rebound or guarding, no obvious peritoneal signs, no palpable pulsatile abdominal masses, no auscultated abdominal bruit : No CVAT Extremities: Trace edema in bilateral lower extremities Neuro: No focal neurological deficits, cranial nerves II through XII intact, 5/5 strength in all extremities. Intact sensation to light touch in all extremities, 2+ reflexes bilateral patella tendons. Normal gait. No ataxia. Skin: No rash or lesions noted MEDICAL DECISION MAKING: Chief Complaint: As per HPI External records reviewed: Imaging reviewed: CT scan of the abdomen pelvis reviewed from 2022 which showed no acute surgical process specifically no signs of AAA Factors affecting care: Obesity, UTI, CKD, type 2 diabetes, HHS, Social determinants of health: none History obtained from others: none Consults: none [facility] Narrative: Patient was initially hypertensive with a blood pressure 157/65, tachycardic at a rate of 116 and tachypneic at a rate of 24. She is afebrile. She saturating well on room air. Exam without focal cardiopulmonary maladies. Abdomen soft however exam was limited by body habitus. I considered the following differential diagnosis: COVID, flu, pneumonia, UTI, gastroenteritis, small bowel obstruction, pyelonephritis, nephrolithiasis, electrolyte disturbance, dehydration, rhabdomyolysis I obtained a broad lab and imaging workup to further elucidate the etiology of the patient complaint. I initially treated the patient with IV fluids, Zofran, Toradol for resuscitation and symptom control. ALL IMAGES (IF OBTAINED) HAVE BEEN PERSONALLY REVIEWED AND INTERPRETED BY MYSELF. EKG with sinus tachycardia, left axis deviation, prolonged QT interval, prolonged AL interval, no obvious STEMI Lipase is wnl indicating no pancreatic inflammation. Lactate is wnl indicating no end-organ hypoperfusion and/or hypoxia. CK within normal limits suggestive of no excessive muscle breakdown or rhabdomyolysis CBC with no leukocytosis, no anemia or thrombocytopenia BMP with hyponatremia at 130 (this essentially baseline compared to prior studies, component of pseudohyponatremia given elevated blood sugar), there is also noted hyperglycemia at 329, no significant anion gap to suggest endorgan hypoperfusion. No signs of metabolic acidosis or acute kidney injury LFTs with elevation in AST and alkaline phosphatase which is similar to prior studies under likely not indicative of acute pathology I have personally reviewed the patient's chest x-ray. Chest x-ray is unremarkable for pulmonary edema, pneumothorax, pneumonia or focal cardiopulmonary abnormality. Urinalysis with evidence of urinary flexion will send for culture and give prophylactic ceftriaxone. On reassessment patient was noted to be 88% on room air. This prompted initiation O2 therapy via nasal cannula. Given COVID positive viral swab, hypoxia patient need inpatient admission. Addition to this patient has signs of failed outpatient antimicrobial therapy for UTI. Discussed case with Dr. Saini who agreed with admission. The patient and/or family, caregivers express understanding. The patient and/or family, caregivers agrees with the plan. Shared decision making: I will have a discussion with the patient and or visitors regarding risk/benefits of further testing or admission. They will be made aware of of the risk/benefits inherent in this decision they will be given the opportunity to voice understanding. Total critical care time today provided was at least 0 [] minutes. This excludes separately billable procedures. Critical care time (if documented) is secondary to the patient having high probability of clinically significant/life threatening deterioration in the patient's condition which required my urgent intervention. Impression: 1. Acute nephrolithiasis 2. Nausea vomiting 3. Dehydration 4. Hyperglycemia 5. UTI Dispo: Admit This note was generated with [employer] dictation software. It may contain incorrect words, spelling, and punctuation that were not noted in review of the chart prior to signing. Lab Data Labs: Laboratory Results - last 24 hr 03/04/24 03/04/24 03/04/24 07:00 08:00 10:45 WBC 7.4 RBC 5.04 Hgb 13.5 Hct 42.7 MCV 84.7 MCH 26.8 L MCHC 31.6 L RDW Std Deviation 48.9 H RDW Coeff of [place] 16.1 H Plt Count 231 MPV 10.9 Sodium 130 L Potassium 4.1 Chloride 95 L Carbon Dioxide 29.0 Anion Gap 6 BUN 12 Creatinine 0.95 Estim Creat Clear Calc 74.68 Est GFR (MDRD) Af Amer 78 Est GFR (MDRD) Non-Af 65 BUN/Creatinine Ratio 12.6 Glucose 329 H Lactic Acid 1.5 Calcium 9.4 Total Bilirubin 0.90 Direct Bilirubin 0.25 AST 57 H ALT 43 Alkaline Phosphatase 237 H Total Creatine Kinase 148 Total Protein 9.3 H Albumin 3.2 Globulin 6.1 H Lipase 59 Urine Color Yellow Urine Clarity Cloudy Urine pH 6.0 Ur Specific [place] 1.020 Urine Protein 30 H Urine Glucose (UA) 250 H Urine Ketones Negative Urine Occult Blood 150 H Urine Nitrite Negative Urine Bilirubin Negative Urine Urobilinogen 1 H Ur Leukocyte Esterase 500 H Urine RBC 0 SEEN Urine WBC >100 SEEN Ur Squamous Epith Cells 5-10 SEEN Urine Bacteria 1+ Urine Mucus 0 SEEN Urine Yeast 3+ Radiography Diagnostic Testing: Clinical Impression(s) from Imaging Studies Abdomen/Pelvis CT 03/04/24 07:22 IMPRESSION: 3 mm stone in the left proximal ureter with minimal left hydronephrosis. 2 mm nonobstructing left renal collecting system stone. No right-sided stones. No right-sided hydronephrosis. No bowel obstruction or inflammation. Normal appendix. Hepatosplenomegaly. Electronically Signed: Neal Peñaloza MD at 9:33 EDT , Chest X-Ray 03/04/24 07:30 IMPRESSION: Linear atelectasis and/or scarring in the lateral aspect of the left mid lung. Electronically Signed: Moy Rivera MD at 8:15 EDT , Discharge Plan Triage Chief Complaint: General Illness ED Provider: Jose Suarez Dx/Rx/DC Orders Primary Care Provider: OLU ORTIZ
--- NOTE | 2024-03-04 07:22 | CT_ITS ---
STUDY: CT ABDOMEN AND PELVIS WITHOUT CONTRAST REASON FOR EXAM: Female, 58 years old. Nausea and vomiting. Pain. RADIATION DOSAGE (If Supplied By Facility): CTDIvol = ( 23.98 ) mGy, DLP = ( 1216.19 ) mGycm TECHNIQUE: Transaxial images were obtained from the dome of the diaphragm to the symphysis pubis without oral contrast, and without intravenous contrast. Sagittal and coronal images were reconstructed. CT scan performed according to ALARA principles. Automated exposure control used during exam. COMPARISON: No relevant prior comparison study available FINDINGS: Evaluation of the abdominal viscera is limited in the absence of intravenous contrast. LOWER THORAX: The visualized lung bases are clear. The visualized portions of the heart and pericardium are within normal limits. GALLBLADDER / BILE DUCTS: The patient is status post cholecystectomy. The common bile duct is normal in caliber. There are no calcified ductal stones. LIVER: The liver is enlarged. SPLEEN: The spleen is enlarged, measuring 19.2 cm in maximal dimension. There are calcified granuloma noted in the spleen. PANCREAS: The pancreas demonstrates an unremarkable unenhanced appearance. ADRENAL GLANDS: The adrenal glands are within normal limits. KIDNEYS / BLADDER: There is a 3 mm stone in the left proximal ureter with minimal left hydronephrosis. There is a 2 mm nonobstructing left renal collecting system stone. There are no right renal or ureteral stones. There is no right hydronephrosis. There are no focal renal lesions identified on this noncontrast exam. The urinary bladder is partially distended and appears grossly unremarkable. STOMACH / BOWEL: Normal visualized stomach. There is no bowel obstruction or inflammation. The appendix is visualized and appears normal. PERITONEUM / RETROPERITONEUM: There is no abdominal or pelvic free air, free fluid or fluid collection. There is an intrauterine device present. There is no abdominal or pelvic lymphadenopathy. VESSELS: The aorta is normal in caliber. The IVC is unremarkable. BONES: There are degenerative changes noted in the spine. There are no destructive osseous lesions. SOFT TISSUES: The visualized soft tissues are within normal limits. CT/Abdomen/Pelvis without Cont IMPRESSION: 3 mm stone in the left proximal ureter with minimal left hydronephrosis. 2 mm nonobstructing left renal collecting system stone. No right-sided stones. No right-sided hydronephrosis. No bowel obstruction or inflammation. Normal appendix. Hepatosplenomegaly. Electronically Signed: Neal Peñaloza MD at 9:33 EDT ,
--- NOTE | 2024-03-04 07:30 | RAD_ITS ---
STUDY: X-RAY CHEST REASON FOR EXAM: Female, 58 years old. [place], cough, sore throat, chills, bladder infection, pain all over TECHNIQUE: Single AP portable view of the chest. COMPARISON: Comparison is made with prior study dated January 05, 2024. FINDINGS: EKG electrodes are seen. Stable mild increased linear markings in the left midlung suggestive of underlying atelectasis and/or scarring. There is no demonstrated pleural abnormality. Normal size heart. Normal mediastinum and leigh. Normal visualized pulmonary arteries. There is atherosclerotic tortuosity of the aortic arch and descending thoracic aorta. Normal visualized thoracic spine. Normal visualized ribs, clavicles, and shoulders. There is no demonstrated abnormality of the visualized soft tissue structures of the upper abdomen. RAD/Chest 1 View (Portable) IMPRESSION: Linear atelectasis and/or scarring in the lateral aspect of the left mid lung. Electronically Signed: Moy Rivera MD at 8:15 EDT ,
[2024-03-04] MEDS: 0.9% Normal Saline (1000mL) 1,000 ML 1000 ML IV (07:37)
[2024-03-04] MEDS: Ketorolac 15 MG/ML Vial IV (07:37)
[2024-03-04] MEDS: Ondansetron 4 MG/2 ML Vial IV (07:41)
[2024-03-04 08:16] LABS: Hematocrit 42.7 % (37-47); Hemoglobin 13.5 g/dL (12.0-15.0); Mean Corp Hgb Conc 31.6 g/dL (32-36); Mean Corpuscular Hgb 26.8 pg (27.0-32.0); Mean Corpuscular Volume 84.7 fL (81-99); Mean Platelet Vol. 10.9 fl (6.2-12.0); Platelet Count 231 K/mm3 (150-450); RBC Distribution Width CV 16.1 % (11.6-14.6); RBC Distribution Width SD 48.9 fl (35.1-43.9); Red Blood Count 5.04 M/mm3 (4.2-5.4); White Blood Count 7.4 K/mm3 (4.4-11.0)
[2024-03-04 08:32] LABS: AST(SGOT) 57 U/L (15-37); Alanine Aminotransfer ALT/SGPT 43 U/L (13-56); Albumin, Serum 3.2 g/dL (3.2-5.0); Alkaline Phosphatase 237 U/L (45-117); Anion Gap 6 (5-15); BUN 12 mg/dL (7-18); BUN/Creat Ratio 12.6 RATIO (10-20); Bilirubin, Direct 0.25 mg/dL (0.00-0.30); CPK Total, Creatine Kinase 148 U/L (26-192); Calcium,Total 9.4 mg/dL (8.5-10.1); Chloride 95 mmol/L (98-107); Creatinine, Serum 0.95 mg/dL (0.55-1.02); EST Glomerular Filtration Rate 65 mL/min (>60); Est Glom Filt Rate - Afr Amer 78 mL/min (>60); Estimated Creatinine Clearance 74.68 ml/min; Globulin 6.1 g/dL (2.2-4.2); Glucose 329 mg/dL (74-106); Lipase 59 U/L (13-75); Potassium 4.1 mmol/L (3.5-5.1); Protein, Total 9.3 g/dL (6.4-8.2); Sodium Level 130 mmol/L (136-145)
[2024-03-04 08:34] LABS: Lactic Acid 1.5 mmol/L (0.4-1.9)
[2024-03-04] MEDS: Ceftriaxone 1 GM/50 ML BAG IV (10:27)
[2024-03-04 10:50] LABS: Mucous, Urine 0 SEEN /hpf (<or=2+); Red Blood Cells-Urine 0 SEEN /hpf (0-5)
[2024-03-04 10:55] LABS: Color, Urine Yellow (Yellow); Glucose, Dipstick 250 mg/dl (Normal); Ketone-Dipstick Negative (Negative); Leukocyte Esterase-Dipstick 500 /ul (Negative); Nitrite-Dipstick Negative (Negative); Occult Blood-Urine 150 /ul (Negative); Protein-Dipstick 30 mg/dl (Negative); Urine Bilirubin Dipstick Negative (Negative); Urine Clarity Cloudy (Clear); Urine Urobilinogen 1 mg/dl (Normal)
--- NOTE | 2024-03-04 11:01 | PCM.HP.STD ---
HPI - General General Date of Admission: 03/04/24 Date of Service: 03/04/24 Chief Complaint: N/V, URI sx, dizziness HPI Narrative LEROY TYLER, is a 58 F with past medical history of diabetes, hypertension, depression, hypothyroidism, stage I diastolic dysfunction who presented to [facility] [place] ED 03/04/2024 with a myriad of concerns. She primarily complained of cough and sore throat as well as nausea and vomiting with some left-sided abdominal pain. In the ED she is found to be 88% on room air and COVID-positive but she is also found to have a UA concerning for UTI and a small kidney stone in left ureter and patient felt generally unwell so hospitalist contacted for admission. Patient seen at bedside and she reports she is just generally been feeling unwell lately but over the past several days she has had headache and malaise with sore throat and cough since last night and this morning has been having nausea of left-sided abdominal pain. She additionally is felt like she has had shakes/chills and been dizzy several times. She denies any shortness of breath or significant cough, no chest pain, no abdominal pain or diarrhea. Some chronic swelling in lower extremities with nothing acute. Also has been having urinary symptoms for several weeks with concern for UTI and was placed on Keflex however is continued to have burning on urination, frequency, suprapubic pressure prompting patient to be concerned she still had UTI and today was her last day of Keflex. When asked if she seen a urologist she noted she has an appointment scheduled [place] [address] within the next couple of weeks. [facility] Medical History Acute bronchitis, unspecified Anemia Arthritis Back pain Bloody stool Depression Diabetes History of frequent headaches Hyperkalemia Hyperlipidemia Hypertension Hypothyroid Hypothyroidism Morbid obesity Noncompliance with medication regimen Thyroid disease Home Medications ?Medication ?Instructions ?Recorded ?Last Taken ?Type albuterol sulfate 2.5 mg/3 mL 2.5 mg inhalation Q4H PRN PRN Sob 04/11/18 04/17/23 History (0.083 %) solution for nebulization &/Or Wheezing fluoxetine 40 mg capsule 40 mg PO DAILY DEPRESSION 02/12/19 04/17/23 History atorvastatin 20 mg tablet 20 mg PO QHS CHOLESTEROL 10/06/19 03/02/24 History blood-glucose meter,continuous #1 ea 02/18/23 Unknown Rx (Dexcom G7 Reproductive Healthcare Assistant) blood-glucose sensor (Dexcom G7 #3 ea 02/18/23 Unknown Rx Sensor device) acetaminophen 500 mg tablet 500 - 1,000 mg PO Q6H PRN fever or 04/18/23 03/03/24 History pain furosemide 20 mg tablet (Lasix) 20 mg PO DAILY #30 tabs 04/20/23 Unknown Rx amlodipine 2.5 mg tablet 2.5 mg PO DAILY #90 tabs 09/23/23 03/03/24 Rx blood sugar diagnostic (OneTouch #100 ea 09/23/23 Unknown Rx Verio test strips) dulaglutide 1.5 mg/0.5 mL 1.5 mg (0.5 mL) subcut QWEEK #2 mL 09/23/23 03/02/24 Rx subcutaneous pen injector (Trulicity) insulin regular hum U-500 conc 500 130 unit (0.26 mL) subcut TID 09/23/23 03/03/24 Rx unit/mL(3 mL) subcut pen (Humulin #23.4 mL R U-500 (Conc) Insulin Kwikpen) levothyroxine 200 mcg tablet 200 mcg PO DAILY #90 tabs 09/23/23 03/03/24 Rx metformin 500 mg tablet,extended 1,000 mg (2 x 500 mg) PO BID dm 09/23/23 Unknown Rx release 24 hr #360 tabs Allergy/AdvReac Type Severity Reaction Status Date / Time codeine Allergy Angioedema Verified 03/04/24 06:49 nitrofurantoin Allergy edema Verified 03/04/24 06:49 Penicillins Allergy Rash Verified 03/04/24 06:49 Sulfa (Sulfonamide Allergy Rash Verified 03/04/24 06:49 Antibiotics) sulfamethoxazole (Bactrim) Allergy Unknown Verified 03/04/24 06:49 trimethoprim (Bactrim) Allergy Unknown Verified 03/04/24 06:49 Family History Other Cancer Surgical History Hx of cholecystectomy Social History household members: none Smoking Status: Former smoker alcohol intake: current alcohol intake frequency: holidays/special occasions only substance use type: does not use ROS ROS Narrative General: Has felt she has had some chills HENT: Stuffy nose, sore throat, headaches EYES: Denies changes in vision Resp: Denies cough, denies shortness of breath Cardiac: Denies chest pain GI: Denies abdominal pain, denies changes in bowel, has had some nausea : Has had urinary burning, frequency, suprapubic tenderness Extremity: Some chronic lower extremity swelling MSK: Feels generally weak Neuro: Denies any numbness/tingling Heme: Denies any bleeding or bruising Skin: Denies rashes Psychiatric: No complaints voiced Vital Signs Vital Signs Vital Signs: 03/04/24 06:48 03/04/24 06:48 03/04/24 06:51 Temperature 97.9 F 96.9 F L Temperature Source Temporal Temporal Pulse Rate 116 H 116 H Respiratory Rate 24 H 24 H Respiratory Effort Short of Breath Blood Pressure 157/65 H 157/65 H Blood Pressure Mean 95 95 Pulse Ox 99 99 Oxygen Delivery Method Oxygen Flow Rate (L/min) 03/04/24 07:50 03/04/24 07:51 03/04/24 08:00 Temperature 99.0 F 99.0 F Temperature Source Oral Oral Pulse Rate 101 H 102 H Respiratory Rate 23 H 18 Respiratory Effort Blood Pressure 113/68 126/63 H Blood Pressure Mean 83 84 Pulse Ox 97 96 97 Oxygen Delivery Method Nasal Cannula Nasal Cannula Nasal Cannula Oxygen Flow Rate (L/min) 3 3 3 03/04/24 08:48 03/04/24 09:00 03/04/24 10:00 Temperature 97.8 F 98.1 F 97.7 F L Temperature Source Temporal Oral Temporal Pulse Rate 101 H 105 H 102 H Respiratory Rate 30 H 20 H 18 Respiratory Effort Blood Pressure 95/55 L 102/52 L 102/52 L Blood Pressure Mean 68 68 68 Pulse Ox 100 91 91 Oxygen Delivery Method Room Air Room Air Nasal Cannula Oxygen Flow Rate (L/min) 2 03/04/24 10:00 03/04/24 10:04 03/04/24 10:37 Temperature 98.3 F Temperature Source Pulse Rate 102 H 95 Respiratory Rate 18 21 H Respiratory Effort Blood Pressure 102/52 L 105/58 L Blood Pressure Mean 68 73 Pulse Ox 88 98 99 Oxygen Delivery Method Room Air Nasal Cannula Oxygen Flow Rate (L/min) 3 Weight Weight: 109.316 kg Body Mass Index (BMI) 45.5 Physical Exam Narrative General: Alert, oriented, appears generally unwell HEENT: Atraumatic, normocephalic Eyes: Anicteric, normal conjunctiva, extraocular movements grossly intact Neck: Supple Respiratory: No significant wheezes or rhonchi, slight increased respiratory effort during conversation Cardiovascular: Intermittently low-grade tachycardic GI: Soft, nontender, nondistended Extremities: No pitting edema Musculoskeletal: Moving all extremities Neuro: No overt focal neurological deficits Skin: No rashes appreciated Psych: Cooperative Results Lab / Micro Data 03/04/24 07:00 03/04/24 07:00 Labs: Laboratory Results - last 24 hr 03/04/24 07:00: WBC 7.4, RBC 5.04, Hgb 13.5, Hct 42.7, MCV 84.7, MCH 26.8 L, MCHC 31.6 L, RDW Std Deviation 48.9 H, RDW Coeff of [place] 16.1 H, Plt Count 231, MPV 10.9, Sodium 130 L, Potassium 4.1, Chloride 95 L, Carbon Dioxide 29.0, Anion Gap 6, BUN 12, Creatinine 0.95, Estim Creat Clear Calc 74.68, Est GFR (MDRD) Af Amer 78, Est GFR (MDRD) Non-Af 65, BUN/Creatinine Ratio 12.6, Glucose 329 H, Calcium 9.4, Total Bilirubin 0.90, Direct Bilirubin 0.25, AST 57 H, ALT 43, Alkaline Phosphatase 237 H, Total Creatine Kinase 148, Total Protein 9.3 H, Albumin 3.2, Globulin 6.1 H, Lipase 59 03/04/24 08:00: Lactic Acid 1.5 Micro: Microbiology 03/04/24 08:00 Mucosa - Nose SARS-CoV-2, Influenza & RSV (PCR) - Final SARS-CoV-2 (COVID 19 PCR) Imaging Radiology Impression Abdomen/Pelvis CT 03/04/24 07:22 IMPRESSION: 3 mm stone in the left proximal ureter with minimal left hydronephrosis. 2 mm nonobstructing left renal collecting system stone. No right-sided stones. No right-sided hydronephrosis. No bowel obstruction or inflammation. Normal appendix. Hepatosplenomegaly. Electronically Signed: Neal Peñaloza MD at 9:33 EDT , Chest X-Ray 03/04/24 07:30 IMPRESSION: Linear atelectasis and/or scarring in the lateral aspect of the left mid lung. 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 Qualified Code(s): E03.8 - Other specified hypothyroidism; E06.3 - Autoimmune thyroiditis (5) Morbid obesity: (6) UTI (urinary tract infection): PLAN: Plan #Hypoxemia 2/2 COVID 19 infection -88% on room air at rest in ED -Placed on O2 -COVID-positive -COVID precautions -Will start dexamethasone and remdesivir -Incentive spirometry -Albuterol as needed # UA concerning for UTI -Treated with Keflex but has had persistent symptoms of UTI and UA suggestive of UTI -Urine culture pending -Multiple UTIs in the past and all recent UTIs sensitive to Rocephin so this has been started -Patient did have MDRO back in 2016 so she does not improve can consider switching to Merrem or Zosyn however given all urine culture sensitivity since then have been fairly sensitive feel it is reasonable to continue the Rocephin started in the ED -Given patient's kidney stones will need urologic follow-up which patient already has scheduled -Normal saline # 3 mm kidney stone in left proximal ureter with minimal left hydronephrosis -IV fluids -Tamsulosin -Already has follow-up scheduled with urology in [address] -Scheduled Tylenol -Symptomatic control #Type 2 diabetes mellitus -Glucose checks and sliding scale insulin -Continue U-500 3 times daily Chronic medical problems: #Morbid obesity -BMI 45.5 kg/m? -Complicates treatment, prognosis, outcomes -Recommend weight loss and lifestyle changes #Hx stage I diastolic dysfunction -Seen on echo in 2022 -Daily weights, I's and O's -Patient appears dry, will give gentle hydration and monitor clinically -Hold home Lasix #Depression -Has not been taking fluoxetine as she has been forgetting, will hold at this time #Hypothyroidism -Continue Synthroid #Hypertension -At time of admit blood pressure 105/58, will hold home medications #DVT ppx: Lovenox SQ twice daily Hamida Saini MD Time spent in the patient's overall evaluation,decision-making process, review of diagnostic data, adjustment of management, discussion with other providers, nursing nursing and ancillary staff involved in patient's care documentation, 57 Minutes Charges/Coding Visit Charges Inpatient E&M: 03643 Init Hosp L2
[2024-03-04 11:09] LABS: Bacteria 1+ /hpf (None Seen); White Blood Cells >100 SEEN /hpf (0-5); Yeast-Urine 3+ /hpf (None Seen)
[2024-03-04 11:10] LABS: Squamous Epithelial Cells - UA 5-10 SEEN /hpf (5-10)
[2024-03-04 14:04] LABS: Lactic Acid 1.6 mmol/L (0.4-1.9)
[2024-03-04 14:07] LABS: International Normalized Ratio 1.2; Prothrombin Time (Protime)PT. 15.3 SECONDS (11.7-14.9)
[2024-03-04 14:09] LABS: D-Dimer Quantitative (DVT/PE) 0.39 FEU/ug/m (0.27-0.49)
[2024-03-04 14:17] LABS: Fibrinogen 444 mg/dl (203-444)
[2024-03-04 14:23] LABS: CPK Total, Creatine Kinase 135 U/L (26-192); LDH 199 U/L (84-246)
[2024-03-04] MEDS: Remdesivir 200 MG in 0.9% Normal Saline (250mL Bag) 210 ML 250 MG IV (14:24)
[2024-03-04] MEDS: 0.9% Normal Saline (1000mL) 1,000 ML 75 ML IV (14:24)
[2024-03-04] MEDS: Acetaminophen 500 MG Tablet 1000 MG PO ×2 (14:25→21:38)
[2024-03-04] MEDS: dexAMETHasone 10 MG/ML Vial 6 MG IV (14:25)
[2024-03-04] MEDS: Insulin Lispro 100 UNIT/ML INSULN.PEN SC ×2 (17:06→21:37)
[2024-03-04] MEDS: Tamsulosin HCl 0.4 MG Capsule PO (17:07)
[2024-03-04] MEDS: Insulin U-500 UNITS/ML PEN 100 UNITS SC (17:07)
[2024-03-04 17:39] LABS: Bedside Glucose 333 mg/dL (74-106)
[2024-03-04] MEDS: Enoxaparin 40 MG/0.4 ML Syringe SC (21:39)
[2024-03-04] MEDS: Atorvastatin Calcium 20 MG Tablet PO (21:39)
[2024-03-05] VITALS (11 sets, daily range): BP systolic 90–121; BP diastolic 52–74; PULSE 70–83; RESP 18; TEMP 36–36.6; O2SAT 94–99; BMI 45.8
[2024-03-05 01:04] LABS: Bedside Glucose 272 mg/dL (74-106)
[2024-03-05] MEDS: Benzonatate 100 MG Capsule 200 MG PO ×2 (05:22→20:40)
[2024-03-05] MEDS: Acetaminophen 500 MG Tablet 1000 MG PO ×3 (05:23→20:41)
[2024-03-05] MEDS: Levothyroxine 100 MCG Tablet 200 MCG PO (05:24)
[2024-03-05 05:48] LABS: Absolute Lymphocyte Count 1.15 X10^3/uL (0.83-4.51); Absolute Neutrophil Count 4.6 X10^3/uL (2.0-7.7); Basophil# 0.07 X10^3/uL; Basophil% 1.1 % (0-1); Eosinophil# 0.01 X10^3/uL; Eosinophils% 0.2 % (0-5); Hematocrit 38.8 % (37-47); Hemoglobin 11.8 g/dL (12.0-15.0); Lymphocyte # 1.15 X10^3/ul (0.83-4.51); Mean Corp Hgb Conc 30.4 g/dL (32-36); Mean Corpuscular Hgb 26.5 pg (27.0-32.0); Mean Platelet Vol. 10.5 fl (6.2-12.0); Monocyte# 0.46 X10^3/uL; Monocyte% 7.2 % (0-10); NRBC Flagged by Analyzer 0 % (0-5); Neutrophil % 71.8 % (47-70); Platelet Count 180 K/mm3 (150-450); RBC Distribution Width CV 15.9 % (11.6-14.6); RBC Distribution Width SD 49.7 fl (35.1-43.9); Red Blood Count 4.46 M/mm3 (4.2-5.4); White Blood Count 6.4 K/mm3 (4.4-11.0)
[2024-03-05 06:27] LABS: ALB/GLOB Ratio 0.5 RATIO (0.9-2.4); AST(SGOT) 75 U/L (15-37); Alanine Aminotransfer ALT/SGPT 50 U/L (13-56); Albumin, Serum 2.7 g/dL (3.2-5.0); Alkaline Phosphatase 164 U/L (45-117); Anion Gap 3 (5-15); BUN 13 mg/dL (7-18); BUN/Creat Ratio 18.7 RATIO (10-20); Calcium,Total 8.8 mg/dL (8.5-10.1); Chloride 102 mmol/L (98-107); EST Glomerular Filtration Rate 92 mL/min (>60); Est Glom Filt Rate - Afr Amer 112 mL/min (>60); Estimated Creatinine Clearance 101.68 ml/min; Globulin 5.6 g/dL (2.2-4.2); Glucose 158 mg/dL (74-106); Magnesium 1.8 mg/dL (1.6-2.6); Potassium 4.4 mmol/L (3.5-5.1); Protein, Total 8.3 g/dL (6.4-8.2); Sodium Level 135 mmol/L (136-145)
[2024-03-05 08:15] LABS: Hemoglobin A1c 12.8 % (3.8-5.6)
[2024-03-05] MEDS: Ceftriaxone 1 GM/50 ML BAG IV (08:39)
[2024-03-05] MEDS: 0.9% Saline Lock 10 ML Syringe IV (08:47)
[2024-03-05] MEDS: dexAMETHasone 10 MG/ML Vial 6 MG IV (08:47)
[2024-03-05] MEDS: Enoxaparin 40 MG/0.4 ML Syringe SC ×2 (08:47→20:42)
[2024-03-05] MEDS: Insulin U-500 UNITS/ML PEN 100 UNITS SC ×3 (08:52→17:22)
[2024-03-05 09:22] LABS: Bedside Glucose 138 mg/dL (74-106)
[2024-03-05] MEDS: Remdesivir 100 MG in 0.9% Normal Saline (250mL Bag) 230 ML 250 MG IV (09:59)
--- NOTE | 2024-03-05 11:33 | PN.HOSP_ITS ---
Reason for Visit Reason for Visit: Diagnoses Other specified hypothyroidism (03/04/24) Autoimmune thyroiditis (03/04/24) Type 2 diabetes mellitus with hyperglycemia (03/04/24) Morbid (severe) obesity due to excess calories (03/04/24) Essential (primary) hypertension (03/04/24) Urinary tract infection, site not specified (03/04/24) COVID-19 (03/04/24) long-term (current) use of insulin (03/04/24) Subjective Subjective Patient still feeling generally unwell but better than yesterday, has cough and has had some shortness of breath as well as stuffy nose, abdominal pain improving. Objective Data Objective Data Vital Signs: Vital Signs Temp Pulse Resp BP Pulse Ox O2 Del Method O2 Flow Rate 97.9 F 74 18 104/69 96 Room Air 2 03/05/24 09:00 03/05/24 09:00 03/05/24 09:00 03/05/24 09:00 03/05/24 10:03 03/05/24 10:03 03/05/24 09:00 Oxygen Flow Rate (L/min) 2 Oxygen Delivery Method Room Air Weight: 109.9 kg Body Mass Index (BMI) 45.8 Intake & Output: Intake and Output for Last 24 Hours 03/03/24 03/04/24 03/05/24 23:59 23:59 23:59 Intake Total 1671.25 / 1671.25 1268.75 / 1268.75 Balance 1671.25 / 1671.25 1268.75 / 1268.75 Lab / Micro Data 03/05/24 05:30 03/05/24 05:30 Labs: Laboratory Results - last 24 hr 03/04/24 13:19: PT 15.3 H, INR 1.2, Fibrinogen 444, D-Dimer Quant (PE/DVT) 0.39, Lactic Acid 1.6, Lactate Dehydrogenase 199, Total Creatine Kinase 135, C-React Prot Ext Range 28.80 H, B-Natriuretic Peptide 24.0, Procalcitonin 0.10 H 03/04/24 17:04: POC Glucose 333 H 03/04/24 21:33: POC Glucose 272 H 03/05/24 05:30: WBC 6.4, RBC 4.46, Hgb 11.8 L, Hct 38.8, MCV 87.0, MCH 26.5 L, M CHC 30.4 L, RDW Std Deviation 49.7 H, RDW Coeff of [place] 15.9 H, Plt Count 180, MPV 10.5, Immature Gran % (Auto) 1.700 H, Neut % (Auto) 71.8 H, Lymph % (Auto) 18.0 L, [place] % (Auto) 7.2, Eos % (Auto) 0.2, Baso % (Auto) 1.1 H, Absolute Neuts (auto) 4.6, Absolute Lymphs (auto) 1.15, Nucleated RBC % 0, Sodium 135 L, Potassium 4.4, Chloride 102, Carbon Dioxide 30.0, Anion Gap 3 L, BUN 13, Creatinine 0.70, Estim Creat Clear Calc 101.68, Est GFR (MDRD) Af Amer 112, Est GFR (MDRD) Non-Af 92, BUN/Creatinine Ratio 18.7, Glucose 158 H, Hemoglobin A1c 12.8 H, Calcium 8.8, Magnesium 1.8, Total Bilirubin 0.40, AST 75 H, ALT 50, A lkaline Phosphatase 164 H, Total Protein 8.3 H, Albumin 2.7 L, Globulin 5.6 H, A lbumin/Globulin Ratio 0.5 L, TSH 5.970 H 03/05/24 08:45: POC Glucose 138 H Micro: Microbiology 03/04/24 10:45 Urine, Clean Catch Urine Culture - Preliminary Culture exhibits no growth. 03/04/24 08:00 Mucosa - Nose SARS-CoV-2, Influenza & RSV (PCR) - Final SARS-CoV-2 (COVID 19 PCR) Physical Exam Narrative General: Alert, oriented, appears unwell but improving HEENT: Atraumatic, normocephalic Eyes: Anicteric, normal conjunctiva, extraocular movements grossly intact Neck: Supple Respiratory: No significant wheezes or rhonchi, slight increased respiratory effort during conversation still Cardiovascular: Intermittently low-grade tachycardic GI: Soft, nontender, nondistended Extremities: No pitting edema Musculoskeletal: Moving all extremities Neuro: No overt focal neurological deficits Skin: No rashes appreciated Psych: Cooperative Assessment & Plan Assessment/Plan (1) COVID: (2) Diabetes: QUALIFIERS: Diabetes mellitus type: type 2 Diabetes mellitus termite renewal inspector insulin use: with termite renewal inspector use Diabetes mellitus complication status: w ith hyperglycemia Qualified Code(s): E11.65 - Type 2 diabetes mellitus with hyperglycemia; Z79.4 - long-term (current) use of insulin (3) Hypertension: QUALIFIERS: Hypertension type: essential hypertension Qualified Code(s): I10 - Essential (primary) hypertension (4) Hypothyroidism: QUALIFIERS: 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 Q ualified Code(s): E03.8 - Other specified hypothyroidism; E06.3 - Autoimmune thyroiditis (5) Morbid obesity: (6) UTI (urinary tract infection): PLAN: Plan #Hypoxemia 2/ COVID 19 infection -88% on room air at rest in ED -Placed on O2 -COVID-positive -COVID precautions -Will start dexamethasone and remdesivir -Incentive spirometry -Albuterol as needed -03/05: Patient still with increased respiratory effort, O2 sats improving, will continue present management, if continues to improve may be able to DC home tomorrow if able to ambulate without significant difficulty and can assess for short-term home O2 needs # UA concerning for UTI -Treated with Keflex but has had persistent symptoms of UTI and UA suggestive of UTI -Urine culture pending -Multiple UTIs in the past and all recent UTIs sensitive to Rocephin so this has been started -Patient did have MDRO back in 2016 so she does not improve can consider switching to Merrem or Zosyn however given all urine culture sensitivity since then have been fairly sensitive feel it is reasonable to continue the Rocephin started in the ED -Given patient's kidney stones will need urologic follow-up which patient already has scheduled -Normal saline -03/05: Urine culture thus far no growth however UA was suggestive of UTI and patient had symptoms. May have had urine culture obtained after patient got Rocephin, patient is improving # 3 mm kidney stone in left proximal ureter with minimal left hydronephrosis -IV fluids -Tamsulosin -Already has follow-up scheduled with urology in [place] -Scheduled Tylenol -Symptomatic control -03/05: Pain improving #Type 2 diabetes mellitus -Glucose checks and sliding scale insulin -Continue U-500 3 times daily -03/05: Fasting glucose was 138 today, continue current management Chronic medical problems: #Morbid obesity -BMI 45.5 kg/m? -Complicates treatment, prognosis, outcomes -Recommend weight loss and lifestyle changes #Hx stage I diastolic dysfunction -Seen on echo in 2022 -Daily weights, I's and O's -Patient appears dry, will give gentle hydration and monitor clinically -Hold home Lasix -03/05: Overall improving, hold fluids but we will not resume Lasix yet #Depression -Has not been taking fluoxetine as she has been forgetting, will hold at this time #Hypothyroidism -Continue Synthroid #Hypertension -At time of admit blood pressure 105/58, will hold home medications -03/05: BP still borderline so continue to hold home medication #DVT ppx: Lovenox SQ twice daily Hamida Saini MD Time spent in the patient's overall evaluation,decision-making process, review of diagnostic data, adjustment of management, discussion with other providers, nursing nursing and ancillary staff involved in patient's care documentation, 35 Minutes Charges/Coding Visit Charges Inpatient E&M: 73056 Subs Hosp L2
[2024-03-05] MEDS: Insulin Lispro 100 UNIT/ML INSULN.PEN SC ×3 (11:56→20:41)
[2024-03-05 12:18] LABS: Bedside Glucose 189 mg/dL (74-106)
--- NOTE | 2024-03-05 14:52 | CASEMGMT ---
ALFONZO WHATLEY Face to Face with patient for initial transition planning/care coordination assessment. ALFONZO WHATLEY introduced self and role at [facility]. Patient lying in bed, alert and oriented. Patient willing to participate in assessment and is able to answer all questions appropriately. Care providers, pharmacy, and demographics verified. Strata: 3 PCP: [facility] Specialists: , microfilm operator Preferred Pharmacy: [facility] Insurance: [employer] Prescription Benefit: yes Living Will/HPOA: none LNOK: Brother Living Arrangements: Patient lives alone in a first floor apartment with 5 steps and railing to enter the home. Patient states she is independent Transportation: self, friends DME/HHC: Patient states she has glucometer with supplies at home. No previous HHC or SNF. Discuss patient link program with patient and she is interested. ALFONZO WHATLEY made referral to patient link. Patient wishes to discharge home, denies need for home health at this time. Patient states he has no further needs or concerns at this time. CM to follow for discharge planning needs that may arise. Disposition Plan: Patient to discharge home with patient link and follow-up plans in place. Sridevi SEAY, RN, CM
--- NOTE | 2024-03-05 16:14 | NS ---
03/05/24: geothermal plant manager Sridevi campos dietitian know pt is concerned about her elevated blood sugars. Pt remains in isolation for COVID. Provided pt's nurse Ted with NCM handouts for Carb counting for People with Diabetes and Diabetes Label Reading Tips and outpatient services information to give to pt. RD contact information provided if pt has questions. Elsa Townsend RDN, LD
[2024-03-05] MEDS: Tamsulosin HCl 0.4 MG Capsule PO (17:25)
[2024-03-05 17:47] LABS: Bedside Glucose 257 mg/dL (74-106)
[2024-03-05] MEDS: Atorvastatin Calcium 20 MG Tablet PO (20:41)
[2024-03-05 21:04] LABS: Bedside Glucose 223 mg/dL (74-106)
[2024-03-05] MEDS: MELATONIN 3 MG TABLET PO (23:38)
[2024-03-06 03:19] VITALS: BP 92/54; PULSE 70; RESP 18; TEMP 36.4; O2SAT 96
[2024-03-06 03:45] VITALS: BMI 45.6
[2024-03-06] MEDS: Levothyroxine 100 MCG Tablet 200 MCG PO (05:25)
[2024-03-06] MEDS: Acetaminophen 500 MG Tablet 1000 MG PO ×3 (05:25→21:27)
[2024-03-06] MEDS: Benzonatate 100 MG Capsule 200 MG PO ×2 (05:38→21:26)
[2024-03-06 06:04] LABS: Absolute Lymphocyte Count 2.59 X10^3/uL (0.83-4.51); Absolute Neutrophil Count 3.5 X10^3/uL (2.0-7.7); Basophil# 0.05 X10^3/uL; Basophil% 0.8 % (0-1); Eosinophil# 0.05 X10^3/uL; Eosinophils% 0.8 % (0-5); Hematocrit 36.7 % (37-47); Hemoglobin 11.2 g/dL (12.0-15.0); Lymphocyte # 2.59 X10^3/ul (0.83-4.51); Lymphocyte % 39.2 % (19-41); Mean Corp Hgb Conc 30.5 g/dL (32-36); Mean Corpuscular Hgb 26.4 pg (27.0-32.0); Mean Corpuscular Volume 86.4 fL (81-99); Mean Platelet Vol. 10.6 fl (6.2-12.0); Monocyte# 0.37 X10^3/uL; Monocyte% 5.6 % (0-10); NRBC Flagged by Analyzer 0 % (0-5); Neutrophil # 3.45 X10^3/uL (2.7-7.7); Neutrophil % 52.2 % (47-70); Platelet Count 180 K/mm3 (150-450); RBC Distribution Width CV 15.7 % (11.6-14.6); RBC Distribution Width SD 49.4 fl (35.1-43.9); Red Blood Count 4.25 M/mm3 (4.2-5.4); White Blood Count 6.6 K/mm3 (4.4-11.0)
[2024-03-06 06:35] LABS: Anion Gap 3 (5-15); BUN 15 mg/dL (7-18); BUN/Creat Ratio 22.2 RATIO (10-20); Calcium,Total 8.7 mg/dL (8.5-10.1); Chloride 106 mmol/L (98-107); Creatinine, Serum 0.68 mg/dL (0.55-1.02); EST Glomerular Filtration Rate 95 mL/min (>60); Est Glom Filt Rate - Afr Amer 115 mL/min (>60); Estimated Creatinine Clearance 104.44 ml/min; Glucose 72 mg/dL (74-106); Potassium 3.7 mmol/L (3.5-5.1); Sodium Level 138 mmol/L (136-145)
[2024-03-06 07:16] VITALS: O2SAT 96
[2024-03-06] MEDS: 0.9% Saline Lock 10 ML Syringe IV ×2 (08:53→21:31)
[2024-03-06] MEDS: Ceftriaxone 1 GM/50 ML BAG IV (09:02)
[2024-03-06] MEDS: dexAMETHasone 10 MG/ML Vial 6 MG IV (09:08)
[2024-03-06] MEDS: Enoxaparin 40 MG/0.4 ML Syringe SC ×2 (09:08→21:27)
[2024-03-06 09:15] VITALS: BP 89/58; PULSE 73; RESP 18; TEMP 36.4; O2SAT 95
[2024-03-06] MEDS: Remdesivir 100 MG in 0.9% Normal Saline (250mL Bag) 230 ML 250 MG IV (10:22)
[2024-03-06 11:15] VITALS: BP 99/59; PULSE 75; RESP 18; TEMP 36.4; O2SAT 96
[2024-03-06] MEDS: 0.9% Normal Saline (500mL Bag) 500 ML 999 ML IV (11:46)
[2024-03-06] MEDS: Glucerna Shake 120 ML LIQUID PO (11:51)
--- NOTE | 2024-03-06 12:55 | CHAPLAIN ---
Type of Pastoral Visit ___ Initial Visit ___ Follow-up Visit ___ On-call Visit ___ General Patient Visit ___ Spiritual Assessment ___ Family Conference ___ Bereavement ___ Rapid Response ___ Code Blue _x__ Other (describe below) Pastoral Care Referral From _x__ Patient ___ Family ___ Nurse ___ Physician ___ Emergency Preparedness Manager ___ Dog Handler ___ Other (describe below) Sacrament/Intervention ___ Active listening ___ Anointing ___ Hoahaoism ___ Bereavement ___ Communion ___ Gauri exploration ___ ___ Life review ___ Prayer ___ Reconciliation ___ Sacrament of Sick ___ Supportive presence ___ Wedding ___ Other (describe below) Pastoral Comments patient is in isolation room; attempted phone call but voicemail came on immediately stating the patient is not available at this time; no message could be left
--- NOTE | 2024-03-06 14:44 | PN.HOSP_ITS ---
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 Not necessarily feeling short of breath, still has a little bit of pain when she urinates Objective Data Objective Data Vital Signs: Vital Signs Temp Pulse Resp BP Pulse Ox O2 Del Method O2 Flow Rate 97.6 F L 75 18 99/59 L 96 Room Air 2 03/06/24 11:15 03/06/24 11:15 03/06/24 11:15 03/06/24 11:15 03/06/24 11:15 03/06/24 11:15 03/05/24 14:44 Oxygen Flow Rate (L/min) 2 Oxygen Delivery Method Room Air Weight: 109.5 kg Body Mass Index (BMI) 45.6 Intake & Output: Intake and Output for Last 24 Hours 03/04/24 03/05/24 03/06/24 23:59 23:59 23:59 Intake Total 1671.25 / 1671.25 2238.75 / 2238.75 800 / 800 Balance 1671.25 / 1671.25 2238.75 / 2238.75 800 / 800 Lab / Micro Data 03/06/24 05:25 03/06/24 05:25 Labs: Laboratory Results - last 24 hr 03/05/24 17:20: POC Glucose 257 H 03/05/24 20:36: POC Glucose 223 H 03/06/24 05:25: WBC 6.6, RBC 4.25, Hgb 11.2 L, Hct 36.7 L, MCV 86.4, MCH 26.4 L, MCHC 30.5 L, RDW Std Deviation 49.4 H, RDW Coeff of [place] 15.7 H, Plt Count 180, MPV 10.6, Immature Gran % (Auto) 1.400 H, Neut % (Auto) 52.2, Lymph % (Auto) 39.2, [place] % (Auto) 5.6, Eos % (Auto) 0.8, Baso % (Auto) 0.8, Absolute Neuts (auto) 3.5, Absolute Lymphs (auto) 2.59, Nucleated RBC % 0, Sodium 138, Potassium 3.7, Chloride 106, Carbon Dioxide 29.0, Anion Gap 3 L, BUN 15, Creatinine 0.68, Estim Creat Clear Calc 104.44, Est GFR (MDRD) Af Amer 115, Est GFR (MDRD) Non-Af 95, BUN/Creatinine Ratio 22.2 H, Glucose 72 L, Calcium 8.7 Micro: Microbiology 03/04/24 10:45 Urine, Clean Catch Urine Culture - Final Culture exhibits no growth. 03/04/24 08:00 Mucosa - Nose SARS-CoV-2, Influenza & RSV (PCR) - Final SARS-CoV-2 (COVID 19 PCR) Physical Exam Narrative General: Alert, oriented, still appears generally unwell HEENT: Atraumatic, normocephalic Eyes: Anicteric, normal conjunctiva, extraocular movements grossly intact Neck: Supple Respiratory: No significant wheezes or rhonchi, respiratory effort improving ll Cardiovascular: Regular rate and rhythm GI: Soft, nontender, nondistended Extremities: No pitting edema Musculoskeletal: Moving all extremities Neuro: No overt focal neurological deficits Skin: No rashes appreciated Psych: Cooperative Assessment & Plan Assessment/Plan (1) COVID: (2) Diabetes: QUALIFIERS: Diabetes mellitus type: type 2 Diabetes mellitus intermediate insulin use: with longwall shearer operator use Diabetes mellitus complication status: w ith hyperglycemia Qualified Code(s): E11.65 - Type 2 diabetes mellitus with hyperglycemia; Z79.4 - intermediate project manager (current) use of insulin (3) Hypertension: QUALIFIERS: Hypertension type: essential hypertension Qualified Code(s): I10 - Essential (primary) hypertension (4) Hypothyroidism: QUALIFIERS: 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 glucose of 70 that trended down to 60s on [id number] despite eating, patient had a decreased U-500 dose of 100 3 times daily here but still dropped despite this and despite being on IV steroids, holding scheduled insulin until glucose improving, clearly as wildly variable glucoses given A1c was 12.8. It will be important for patient to follow with Dr. Cervantes her electrologist upon discharge. Only on sliding scale at the moment in the event glucoses are very high, reduced the sliding scale sensitivity as well #Hypoxemia 2/2 COVID 19 infection -88% on room air at rest in ED -Placed on O2 -COVID-positive -COVID precautions -Will start dexamethasone and remdesivir -Incentive spirometry -Albuterol as needed -03/05: Patient still with increased respiratory effort, O2 sats improving, will continue present management, if continues to improve may be able to DC home tomorrow if able to ambulate without significant difficulty and can assess for short-term home O2 needs -03/06: Now on room air and seems to be responding to remdesivir and dexamethasone, continue current management # UA concerning for UTI -Treated with Keflex but has had persistent symptoms of UTI and UA suggestive of UTI -Urine culture pending -Multiple UTIs in the past and all recent UTIs sensitive to Rocephin so this has been started -Patient did have MDRO back in 2016 so she does not improve can consider switching to Merrem or Zosyn however given all urine culture sensitivity since then have been fairly sensitive feel it is reasonable to continue the Rocephin started in the ED -Given patient's kidney stones will need urologic follow-up which patient already has scheduled -Normal saline -03/05: Urine culture thus far no growth however UA was suggestive of UTI and patient had symptoms. May have had urine culture obtained after patient got Rocephin, patient is improving -03/06: Patient does still have some pains will repeat UA and urine culture, blood pressure low however white blood cell count not elevated and temperature not elevated. Did respond to fluids, suspect that her hypoglycemia may have exacerbated this. It is improving so we will continue conservative management, does not appear septic at this time, suspect multifactorial. Holding Flomax due to potential effect on blood pressure # 3 mm kidney stone in left proximal ureter with minimal left hydronephrosis -IV fluids -Tamsulosin -Already has follow-up scheduled with urology in [place] -Scheduled Tylenol -Symptomatic control -03/05: Pain improving -03/06: No more of the left-sided flank pain, patient received more IV fluids today, holding Flomax given potential effect on blood pressure as above Chronic medical problems: #Morbid obesity -BMI 45.5 kg/m? -Complicates treatment, prognosis, outcomes -Recommend weight loss and lifestyle changes #Hx stage I diastolic dysfunction -Seen on echo in 2022 -Daily weights, I's and O's -Patient appears dry, will give gentle hydration and monitor clinically -Hold home Lasix -03/05: Overall improving, hold fluids but we will not resume Lasix yet -03/06: Required receiving IV fluids due to low blood pressure and patient being dry, continue hold Lasix #Depression -Has not been taking fluoxetine as she has been forgetting, will hold at this time #Hypothyroidism -Continue Synthroid #Hypertension -At time of admit blood pressure 105/58, will hold home medications -03/05: BP still borderline so continue to hold home medication -03/06: BP actually low, management as above #DVT ppx: Lovenox SQ twice daily Hamida Saini MD Time spent in the patient's overall evaluation,decision-making process, review of diagnostic data, adjustment of management, discussion with other providers, nursing nursing and ancillary staff involved in patient's care documentation, 37 Minutes Charges/Coding Visit Charges Inpatient E&M: 25517 Subs Hosp L2
[2024-03-06 15:18] LABS: Bedside Glucose 118 mg/dL (74-106)
[2024-03-06 15:18] LABS: Bedside Glucose 69 mg/dL (74-106)
[2024-03-06 16:00] VITALS: BP 117/71; PULSE 72; RESP 18; TEMP 36.5; O2SAT 95
[2024-03-06 16:05] LABS: Mucous, Urine 0 SEEN /hpf (<or=2+); Squamous Epithelial Cells - UA 0 SEEN /hpf (5-10)
[2024-03-06 16:31] LABS: Color, Urine Yellow (Yellow); Glucose, Dipstick Normal (Normal); Ketone-Dipstick Negative (Negative); Leukocyte Esterase-Dipstick 500 /ul (Negative); Nitrite-Dipstick Negative (Negative); Occult Blood-Urine 150 /ul (Negative); Protein-Dipstick Negative (Negative); Specific Gravity, Urine 1.025 (1.002-1.030); Urine Bilirubin Dipstick Negative (Negative); Urine Clarity Cloudy (Clear); Urine Urobilinogen Normal (Normal)
[2024-03-06 16:41] LABS: Bacteria 1+ /hpf (None Seen); Fine Granular Cast- Urine 0 SEEN /lpf (0-5); Red Blood Cells-Urine > 100 SEEN /hpf (0-5); White Blood Cells 50-100 SEEN /hpf (0-5)
[2024-03-06] MEDS: Insulin Lispro 100 UNIT/ML INSULN.PEN SC ×2 (17:18→21:29)
[2024-03-06 17:46] LABS: Bedside Glucose 255 mg/dL (74-106)
[2024-03-06] MEDS: MELATONIN 3 MG TABLET PO (21:26)
[2024-03-06] MEDS: Atorvastatin Calcium 20 MG Tablet PO (21:27)
[2024-03-06 21:37] VITALS: BP 123/76; PULSE 74; RESP 18; TEMP 36.5; O2SAT 97
[2024-03-06 21:57] LABS: Bedside Glucose 309 mg/dL (74-106)
[2024-03-07 03:48] VITALS: BP 126/70; PULSE 64; RESP 18; TEMP 36.4; O2SAT 97
[2024-03-07 06:00] VITALS: BMI 46.1
[2024-03-07] MEDS: Acetaminophen 500 MG Tablet 1000 MG PO (06:31)
[2024-03-07] MEDS: Levothyroxine 100 MCG Tablet 200 MCG PO (06:32)
[2024-03-07] MEDS: Insulin Lispro 100 UNIT/ML INSULN.PEN SC ×2 (06:33→11:55)
[2024-03-07 06:41] VITALS: BP 119/72; PULSE 69; RESP 19; TEMP 36.4; O2SAT 95
[2024-03-07 06:43] LABS: Bedside Glucose 182 mg/dL (74-106)
[2024-03-07 06:53] LABS: Absolute Lymphocyte Count 2.79 X10^3/uL (0.83-4.51); Absolute Neutrophil Count 4.6 X10^3/uL (2.0-7.7); Basophil# 0.02 X10^3/uL; Basophil% 0.3 % (0-1); Eosinophil# 0.02 X10^3/uL; Eosinophils% 0.3 % (0-5); Hematocrit 36.8 % (37-47); Hemoglobin 11.2 g/dL (12.0-15.0); Lymphocyte # 2.79 X10^3/ul (0.83-4.51); Lymphocyte % 35.2 % (19-41); Mean Corp Hgb Conc 30.4 g/dL (32-36); Mean Corpuscular Hgb 26.2 pg (27.0-32.0); Mean Corpuscular Volume 86.2 fL (81-99); Mean Platelet Vol. 10.5 fl (6.2-12.0); NRBC Flagged by Analyzer 0 % (0-5); Neutrophil % 57.9 % (47-70); Platelet Count 190 K/mm3 (150-450); RBC Distribution Width CV 15.9 % (11.6-14.6); RBC Distribution Width SD 49.9 fl (35.1-43.9); Red Blood Count 4.27 M/mm3 (4.2-5.4); White Blood Count 7.9 K/mm3 (4.4-11.0)
[2024-03-07 07:18] LABS: Anion Gap 5 (5-15); BUN 15 mg/dL (7-18); BUN/Creat Ratio 22.7 RATIO (10-20); Calcium,Total 8.7 mg/dL (8.5-10.1); Chloride 104 mmol/L (98-107); Creatinine, Serum 0.66 mg/dL (0.55-1.02); EST Glomerular Filtration Rate 98 mL/min (>60); Est Glom Filt Rate - Afr Amer 118 mL/min (>60); Estimated Creatinine Clearance 108.38 ml/min; Glucose 212 mg/dL (74-106); Sodium Level 137 mmol/L (136-145)
[2024-03-07 08:01] VITALS: O2SAT 96
[2024-03-07 09:32] VITALS: BP 103/61; PULSE 70; RESP 16; TEMP 36.5; O2SAT 96
[2024-03-07] MEDS: Ceftriaxone 1 GM/50 ML BAG IV (09:33)
[2024-03-07] MEDS: Enoxaparin 40 MG/0.4 ML Syringe SC (09:34)
[2024-03-07] MEDS: dexAMETHasone 10 MG/ML Vial 6 MG IV (09:34)
[2024-03-07] MEDS: 0.9% Saline Lock 10 ML Syringe IV (09:35)
[2024-03-07] MEDS: Remdesivir 100 MG in 0.9% Normal Saline (250mL Bag) 230 ML 250 MG IV (10:12)
[2024-03-07 11:00] VITALS: BP 103/61; PULSE 70; RESP 16; TEMP 36.5; O2SAT 96
[2024-03-07 12:18] LABS: Bedside Glucose 287 mg/dL (74-106)
--- NOTE | 2024-03-07 14:10 | DCINST_ITS ---
Discharge Instructions Diet Discharge Diet: Carb Control Diet Activity Discharge Activity: - (Increase activity as tolerated) Return to work on:: 03/10/24 Follow Up Care Test Results: Test results from this visit will be discussed in further detail at your follow- up appointment, if applicable. Discharge Plan Admission Admit Date/Time: 03/04/24 11:02 Primary Reason for Your Visit: Covid, nausea and vomiting Attending Provider: Hamida Saini Primary Care Provider: OLU ORTIZ Instructions Patient Instructions: Human Coronaviruses, Infection Preventing Spread, ED Kidney Stone with Pain Additional Instructions / Restrictions: DISCHARGE INSTRUCTIONS PLEASE READ *Please take this with you to your next doctors appointment* -Due to your low blood sugars after discussion with Dr. Cervantes you will be discharged on 5 units of U-500 with meals. You are to hold your insulin if your glucose is less than 100 and increase by 10 units per meal if your glucose is over [address] Cervantes's office. Please call her office with any questions or concerns -Please follow-up with Dr. Cervantes with endocrinology upon discharge. Please call their office to schedule hospital follow-up appointment upon discharge. -You will be discharged with a prescription for oral nystatin four times daily for oral thrush for 7 days -You will be discharged with another 6 days of dexamethasone for COVID -It will be important for you to keep your urology follow-up -Due to a low blood pressure your blood pressure medications will be held on discharge. It is advised that you follow closely with your primary care physician and ideally check your blood pressure daily at home as these will likely need to be reinitiated as your continue to improve -Resume your Lasix in 3 days -Please call your primary care provider's office upon discharge to schedule a hospital follow up within 1 week. -For any concerning signs or symptoms please call 911 or proceed to the nearest emergency department Discharge Orders/Prescriptions Prescriptions: New nystatin 100,000 unit/mL Suspension 500,000 unit PO 4X/DAY 7 Days Qty: 140 0RF dexamethasone 6 mg tablet 6 mg PO DAILY 6 Days Qty: 6 0RF Continued albuterol sulfate 2.5 mg /3 mL (0.083 %) solution for nebulization 2.5 mg INHALATION Q4H PRN PRN (Reason: Sob &/Or Wheezing) (DME) [employer] G7 Sensor Device See Rx Instructions .Route Qty: 3 5RF Rx Instructions: 1 sensor q 10 days (DME) Dexcom G7 Legal Executive Assistant Misc See Rx Instructions .Route Qty: 1 0RF Rx Instructions: As directed Trulicity 1.5 mg/0.5 mL pen injector 1.5 mg subcut QWEEK Qty: 2 3RF (DME) OneTouch Verio test strips Strip See Rx Instructions .Route Qty: 100 5RF Rx Instructions: 4x/day levothyroxine 200 mcg tablet 200 mcg PO DAILY Qty: 90 1RF atorvastatin 20 MG tablet 20 mg PO QHS acetaminophen 500 mg tablet 500 - 1,000 mg PO Q6H PRN (Reason: fever or pain) Changed Humulin R U-500 (Conc) Kwikpen 500 unit/mL (3 mL) insulin pen 5 unit subcut TID Qty: 23.4 5RF Rx Instructions: Increase by 10u/meal if glucose >[address] Cervantes's office, hold if glucose <100. Held amlodipine 2.5 mg tablet 2.5 mg PO DAILY Qty: 90 1RF Hold Instructions: Resume on 03/07/24. Hold until otherwise specified by your outpatient provider furosemide [Lasix] 20 mg tablet 20 mg PO DAILY Qty: 30 0RF Hold Instructions: Resume on 03/09/24. Discontinued metformin 500 mg tablet extended release 24 hr 1,000 mg PO BID Qty: 360 1RF fluoxetine 40 MG capsule 40 mg PO DAILY Patient Comments: TAKE 1 CAPSULE BY MOUTH EVERY DAY Referrals / Follow Up: Haile Cervantes MD [Med Staff - Courtesy Staff] - OLU ORTIZ CRNP [Primary Care Provider] - Within 1 Week Disposition Disposition (needs filled in before D/C Order can be placed): Home, Self Care
[2024-03-07 15:37] VITALS: BP 116/70; PULSE 73; RESP 18; O2SAT 95
--- NOTE | 2024-03-07 15:37 | PCM.DC.SUM ---
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 insulin use: with prison use Diabetes mellitus type: type 2 Qualified Code(s): E11.65 - Type 2 diabetes mellitus with hyperglycemia; Z79.4 - residential (current) use of insulin (3) Hypertension: Status: Chronic Code(s): I10 - Essential (primary) hypertension Qualifiers: Hypertension type: essential hypertension Qualified Code(s): I10 - Essential (primary) hypertension (4) Hypothyroidism: Status: Chronic Code(s): E03.9 - Hypothyroidism, unspecified Qualifiers: 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 Qualified Code(s): E03.8 - Other specified hypothyroidism; E06.3 - Autoimmune thyroiditis (5) Morbid obesity: Status: Chronic Code(s): E66.01 - Morbid (severe) obesity due to excess calories Plan #Type 2 diabetes mellitus #Hypoxemia 2/2 COVID 19 infection # 3 mm kidney stone in left proximal ureter with minimal left hydronephrosis #Vaginal yeast ifxn #Morbid obesity #Hx stage I diastolic dysfunction #Depression #Hypothyroidism #Hypertension Medications at Discharge Home Medications albuterol sulfate 2.5 mg/3 mL (0.083 %) solution for nebulization 2.5 mg inhalation Q4H PRN PRN Sob &/Or Wheezing 04/11/18 atorvastatin 20 mg tablet 20 mg PO QHS CHOLESTEROL 10/06/19 blood-glucose meter,continuous (Dexcom G7 Second Floor Operator) #1 ea 02/18/23 blood-glucose sensor (Dexcom G7 Sensor device) #3 ea 02/18/23 acetaminophen 500 mg tablet 500 - 1,000 mg PO Q6H PRN fever or pain 04/18/23 furosemide 20 mg tablet (Lasix) 20 mg PO DAILY #30 tabs 04/20/23 amlodipine 2.5 mg tablet 2.5 mg PO DAILY #90 tabs 09/23/23 blood sugar diagnostic (OneTouch Verio test strips) #100 ea 09/23/23 dulaglutide 1.5 mg/0.5 mL subcutaneous pen injector (Trulicity) 1.5 mg (0.5 mL) subcut QWEEK #2 mL 09/23/23 levothyroxine 200 mcg tablet 200 mcg PO DAILY #90 tabs 09/23/23 dexamethasone 6 mg tablet 6 mg PO DAILY 6 days #6 tabs 03/07/24 insulin regular hum U-500 conc 500 unit/mL(3 mL) subcut pen (Humulin R U-500 (Conc) Insulin Kwikpen) 5 unit (0.01 mL) subcut TID #23.4 mL 03/07/24 nystatin 100,000 unit/mL oral suspension 500,000 unit (5 mL) PO 4X/DAY 7 days #140 mL 03/07/24 Hospital Course Summary of Care Provided Minutes Spent on Discharge: 35 Hospital Course: LEROY TYLER, is a 58 F with past medical history of diabetes, hypertension, depression, hypothyroidism, stage I diastolic dysfunction who presented to [facility] ED 03/04/2024 with nausea, vomiting, URI symptoms. In the ED she was found to have a small kidney stone in the left ureter but was found to be 88% on room air with URI symptoms and was COVID-positive so hospitalist contacted for admission. Patient admitted and UTI ruled out though patient was found to have yeast infection which was likely causing some of her residual UTI-like symptoms with burning and irritation. Oxygen improved with remdesivir and dexamethasone when she no longer required oxygen, abdominal pain and nausea and vomiting improved with fluids and patient reports she already has a appointment with a urologist on an outpatient basis. Patient did have wildly variable blood sugars and despite lowering her home dose and patient being on IV steroids she still had an episode of glucose in the 60s. Contacted her color separation photographer and gave patient updated instructions for her insulin, patient verbalized understanding. On day of discharge she was feeling much better and had no new or acute complaints. Discharge instructions as followed: -Due to your low blood sugars after discussion with Dr. Cervantes you will be discharged on 5 units of U-500 with meals. You are to hold your insulin if your glucose is less than 100 and increase by 10 units per meal if your glucose is over [address] Cervantes's office. Please call her office with any questions or concerns -Please follow-up with Dr. Cervantes with endocrinology upon discharge. Please call their office to schedule hospital follow-up appointment upon discharge. -You will be discharged with a prescription for oral nystatin four times daily for oral thrush for 7 days -You will be discharged with another 6 days of dexamethasone for COVID -It will be important for you to keep your urology follow-up -Due to a low blood pressure your blood pressure medications will be held on discharge. It is advised that you follow closely with your primary care physician and ideally check your blood pressure daily at home as these will likely need to be reinitiated as your continue to improve -Resume your Lasix in 3 days -Please call your primary care provider's office upon discharge to schedule a hospital follow up within 1 week. -For any concerning signs or symptoms please call 911 or proceed to the nearest emergency department Physical Exam Narrative General: Alert, oriented, sitting up in bed, feeling better HEENT: Atraumatic, normocephalic Eyes: Anicteric, normal conjunctiva, extraocular movements grossly intact Neck: Supple Respiratory: No significant wheezes or rhonchi, normal respiratory effort Cardiovascular: Regular rate and rhythm GI: Soft, nontender, nondistended Extremities: No pitting edema Musculoskeletal: Moving all extremities Neuro: No overt focal neurological deficits Skin: No rashes appreciated Psych: Cooperative Weight / BMI Weight Weight: 110.8 kg Body Mass Index (BMI) 46.1 ABG / Lab / Microbiology Data 03/07/24 06:05 03/07/24 06:05 Laboratory: Laboratory Results - last 24 hr 03/06/24 15:30: Urine Color Yellow, Urine Clarity Cloudy, Urine pH 6.0, Ur Specific [place] 1.025, Urine Protein Negative, Urine Glucose (UA) Normal, Urine Ketones Negative, Urine Occult Blood 150 H, Urine Nitrite Negative, Urine Bilirubin Negative, Urine Urobilinogen Normal, Ur Leukocyte Esterase 500 H, Urine RBC > 100 SEEN, Urine WBC 50-100 SEEN, Ur Squamous Epith Cells 0 SEEN, Urine Bacteria 1+, Fine Granular Casts 0 SEEN, Urine Mucus 0 SEEN 03/06/24 17:17: POC Glucose 255 H 03/06/24 21:26: POC Glucose 309 H 03/07/24 06:05: WBC 7.9, RBC 4.27, Hgb 11.2 L, Hct 36.8 L, MCV 86.2, MCH 26.2 L, MCHC 30.4 L, RDW Std Deviation 49.9 H, RDW Coeff of [place] 15.9 H, Plt Count 190, MPV 10.5, Immature Gran % (Auto) 1.300 H, Neut % (Auto) 57.9, Lymph % (Auto) 35.2, [place] % (Auto) 5.0, Eos % (Auto) 0.3, Baso % (Auto) 0.3, Absolute Neuts (auto) 4.6, Absolute Lymphs (auto) 2.79, Nucleated RBC % 0, Sodium 137, Potassium 4.0, Chloride 104, Carbon Dioxide 28.0, Anion Gap 5, BUN 15, Creatinine 0.66, Estim Creat Clear Calc 108.38, Est GFR (MDRD) Af Amer 118, Est GFR (MDRD) Non-Af 98, BUN/Creatinine Ratio 22.7 H, Glucose 212 H, Calcium 8.7 03/07/24 06:24: POC Glucose 182 H 03/07/24 11:54: POC Glucose 287 H Microbiology: Microbiology 03/06/24 15:30 Urine, Clean Catch Urine Culture - Preliminary Culture exhibits no growth. 03/04/24 10:45 Urine, Clean Catch Urine Culture - Final Culture exhibits no growth. 03/04/24 08:00 Mucosa - Nose SARS-CoV-2, Influenza & RSV (PCR) - Final SARS-CoV-2 (COVID 19 PCR) D/C Instructions Discharge Diet: Carb Control Diet Return to work on: 03/10/24 Meaningful Use Info Meaningful Use Meaningful Use Diagnoses (Choose all that apply): None applicable Ischemic Stroke Statin Dosing Therapy Reference: STATIN DOSE THERAPY REFERENCE: * Patients > 75 years receive moderate or high dose statin therapy. * Patients 75 years or YOUNGER should receive HIGH intensity statin dose unless contraindicated. You will be required to document reason for non-treatment if statin daily dose does not meet guidelines. HIGH DOSE STATIN THERAPY DAILY Atorvastatin > than or = to 40 mg Rosuvastatin > than or = to 20 mg Amlodipine + Atorvastatin > than or = to 2.5/40 mg Ezetimibe + Simvastatin 10/80 mg Simvastatin 80mg Discharge Plan Admission Admit Date/Time: 03/04/24 11:02 Primary Reason for Your Visit: Covid, nausea and vomiting Attending Provider: Hamida Saini Primary Care Provider: OLU ORTIZ Instructions Patient Instructions: Human Coronaviruses, Infection Preventing Spread, ED Kidney Stone with Pain Additional Instructions / Restrictions: DISCHARGE INSTRUCTIONS PLEASE READ *Please take this with you to your next doctors appointment* -Due to your low blood sugars after discussion with Dr. Cervantes you will be discharged on 5 units of U-500 with meals. You are to hold your insulin if your glucose is less than 100 and increase by 10 units per meal if your glucose is over [address] Cervantes's office. Please call her office with any questions or concerns -Please follow-up with Dr. Cervantes with endocrinology upon discharge. Please call their office to schedule hospital follow-up appointment upon discharge. -You will be discharged with a prescription for oral nystatin four times daily for oral thrush for 7 days -You will be discharged with another 6 days of dexamethasone for COVID -It will be important for you to keep your urology follow-up -Due to a low blood pressure your blood pressure medications will be held on discharge. It is advised that you follow closely with your primary care physician and ideally check your blood pressure daily at home as these will likely need to be reinitiated as your continue to improve -Resume your Lasix in 3 days -Please call your primary care provider's office upon discharge to schedule a hospital follow up within 1 week. -For any concerning signs or symptoms please call 911 or proceed to the nearest emergency department Discharge Orders/Prescriptions Prescriptions: New nystatin 100,000 unit/mL Suspension 500,000 unit PO 4X/DAY 7 Days Qty: 140 0RF dexamethasone 6 mg tablet 6 mg PO DAILY 6 Days Qty: 6 0RF Continued albuterol sulfate 2.5 mg /3 mL (0.083 %) solution for nebulization 2.5 mg INHALATION Q4H PRN PRN (Reason: Sob &/Or Wheezing) (DME) Dexcom G7 Sensor Device See Rx Instructions .Route Qty: 3 5RF Rx Instructions: 1 sensor q 10 days (DME) Dexcom G7 Second Floor Operator Misc See Rx Instructions .Route Qty: 1 0RF Rx Instructions: As directed Trulicity 1.5 mg/0.5 mL pen injector 1.5 mg subcut QWEEK Qty: 2 3RF (DME) OneTouch Verio test strips Strip See Rx Instructions .Route Qty: 100 5RF Rx Instructions: 4x/day levothyroxine 200 mcg tablet 200 mcg PO DAILY Qty: 90 1RF atorvastatin 20 MG tablet 20 mg PO QHS acetaminophen 500 mg tablet 500 - 1,000 mg PO Q6H PRN (Reason: fever or pain) Changed Humulin R U-500 (Conc) Kwikpen 500 unit/mL (3 mL) insulin pen 5 unit subcut TID Qty: 23.4 5RF Rx Instructions: Increase by 10u/meal if glucose >[address] Cervantes's office, hold if glucose <100. Held amlodipine 2.5 mg tablet 2.5 mg PO DAILY Qty: 90 1RF Hold Instructions: Resume on 03/07/24. Hold until otherwise specified by your outpatient provider furosemide [Lasix] 20 mg tablet 20 mg PO DAILY Qty: 30 0RF Hold Instructions: Resume on 03/09/24. Discontinued metformin 500 mg tablet extended release 24 hr 1,000 mg PO BID Qty: 360 1RF fluoxetine 40 MG capsule 40 mg PO DAILY Patient Comments: TAKE 1 CAPSULE BY MOUTH EVERY DAY Referrals / Follow Up: Haile Cervantes MD [Med Staff - Courtesy Staff] - OLU ORTIZ CRNP [Primary Care Provider] - Within 1 Week Disposition Disposition (needs filled in before D/C Order can be placed): Home, Self Care Charges/Coding Visit Charges Inpatient E&M: 09240 Disch Hosp >30min
[2024-03-07] MEDS: FLUCONAZOLE 150 MG TABLET PO (16:00)
--- NOTE | 2024-03-24 11:39 | CCN.REFER ---
AGREEABLE TO PATIENT LINK DEVICE. SCHEDULED TO BE PLACED 9/ @ 10AM. DECLINES CCN HOME VISITS.
== END 2024-03-07 16:34 | disposition home or self-care (01) | DRG 137 ==
LOC: ED 07:48 → PCU 11:01
PROVIDERS: Admitting Provider Internal Medicine; Emergency Provider Emergency Medicine; PCP Nurse Practitioner Adult Health; Visit Provider Internal Medicine
DX: U07.1 COVID-19 (principal); E11.649 Type 2 diabetes mellitus with hypoglycemia without coma; I11.0 Hypertensive heart disease with heart failure; I50.32 Chronic diastolic (congestive) heart failure; E66.01 Morbid (severe) obesity due to excess calories; F32.A Depression, unspecified; E06.3 Autoimmune thyroiditis; E11.65 Type 2 diabetes mellitus with hyperglycemia; E78.5 Hyperlipidemia, unspecified; Z68.42 Body mass index [BMI] 45.0-49.9, adult; Z79.4 Long term (current) use of insulin; B37.31 Acute candidiasis of vulva and vagina; N13.2 Hydronephrosis with renal and ureteral calculous obstruction; R09.02 Hypoxemia; Z79.85 Long-term (current) use of injectable non-insulin antidiabetic drugs; Z79.84 Long term (current) use of oral hypoglycemic drugs; Z79.890 Hormone replacement therapy; Z79.899 Other long term (current) drug therapy; Z87.891 Personal history of nicotine dependence
CPT/HCPCS: 36415; 71045; 74176; 80048; 80053; 80076; 81001; 82550; 82962; 83036; 83605; 83615; 83690; 83735; 83880; 84145; 84443; 85025; 85027; 85379; 85384; 85610; 86140; 87086; 87631; 93005; 94668; 97110; 97116; 97162; 99252; 99285; J7030; J7040; J7050; A4216; G0463; J0248; J2405

== ENCOUNTER 2024-04-03 11:05 | Inpatient (IN) | payer MEDICAID, SELFPAY ==
[2024-04-03] VITALS (15 sets, daily range): BP systolic 85–125; BP diastolic 49–83; PULSE 61–116; RESP 16–20; TEMP 35.9–36.4; O2SAT 87–99; BMI 46.4
--- NOTE | 2024-04-03 11:28 | VDLE_ITS ---
Reason For Study: SWELLING RIGHT GSV is normal. CFV is compressible, spontaneous, phasic, competent and demonstrates normal augmentation. FV is compressible, spontaneous, phasic, competent and demonstrates normal augmentation. POP V is compressible, spontaneous, phasic, competent and demonstrates normal augmentation. T/P Trunk is compressible. PTV is compressible. RT PerV is compressible. Procedure This is a venous duplex using B-mode, color flow and spectral Doppler. Exam performed portable in ED. A preliminary report was called and/or faxed to ED @ noon. VL/Venous Duplex US, Unilateral Interpretation Summary Deep veins of the right lower extremity are patent and compressible segmentally . There is no evidence of right lower extremity deep vein thrombosis. Valvular competence bong ears intact within the proximal deep venous system on the right . The right great saphenous vein a ppears patent and compressible segmentally. Ordering Physician: Isidro Lewis Referring Physician: Vero Ortez Performed By: Kiana Bal RDCS, RVT
--- NOTE | 2024-04-03 11:28 | EKG12_ITS ---
Test Reason : Blood Pressure : / mmHG Vent. Rate : 090 BPM Atrial Rate : 090 BPM P-R Int : 122 ms QRS Dur : 124 ms QT Int : 396 ms P-R-T Axes : 055 -56 063 degrees QTc Int : 484 ms Normal sinus rhythm Right bundle branch block Left anterior fascicular block Bifascicular block Minimal voltage criteria for LVH, may be normal variant ( R in aVL ) Abnormal ECG Confirmed by Tadeo Saeed ([id number]), assistant production editor PAT JACOME ([id number]) on 04/06/2024 11:17:20 AM Referred By: Confirmed By:Tadeo Saeed
[2024-04-03] MEDS: 0.9% Normal Saline (1000mL) 1,000 ML 999 ML IV (12:35)
[2024-04-03 12:47] LABS: Differential Indicated MANUAL DIFF; Hematocrit 22.5 % (37-47); Mean Corp Hgb Conc 31.1 g/dL (32-36); Mean Platelet Vol. 10.4 fl (6.2-12.0); POSITIVE COUNT YES; POSITIVE MORPHOLOGY YES; Platelet Count 219 K/mm3 (150-450); RBC Distribution Width CV 18.5 % (11.6-14.6); RBC Distribution Width SD 57.3 fl (35.1-43.9); White Blood Count 6.7 K/mm3 (4.4-11.0)
[2024-04-03 13:04] LABS: ALB/GLOB Ratio 0.5 RATIO (0.9-2.4); AST(SGOT) 17 U/L (15-37); Alanine Aminotransfer ALT/SGPT 18 U/L (13-56); Albumin, Serum 2.4 g/dL (3.2-5.0); Alkaline Phosphatase 176 U/L (45-117); Anion Gap 3 (5-15); BUN 25 mg/dL (7-18); Calcium,Total 8.9 mg/dL (8.5-10.1); Chloride 103 mmol/L (98-107); Creatinine, Serum 0.71 mg/dL (0.55-1.02); EST Glomerular Filtration Rate 90 mL/min (>60); Est Glom Filt Rate - Afr Amer 108 mL/min (>60); Globulin 4.5 g/dL (2.2-4.2); Glucose 282 mg/dL (74-106); Lipase 28 U/L (13-75); Potassium 4.4 mmol/L (3.5-5.1); Protein, Total 6.9 g/dL (6.4-8.2); Sodium Level 135 mmol/L (136-145); Troponin-I HS 39 pg/mL (3.0-54.0)
--- NOTE | 2024-04-03 13:30 | CT_ITS ---
STUDY: CT ABDOMEN AND PELVIS WITH CONTRAST REASON FOR EXAM: Female, 58 years old. RLQ pain RADIATION DOSAGE (If Supplied By Facility): CTDIvol = ( 22.77 ) mGy, DLP = ( 2216.07 ) mGycm TECHNIQUE: IV 100mL Isovue-370 was administered. Transaxial images were obtained from the dome of the diaphragm to the symphysis pubis. Multiplanar coronal and sagittal images were reformatted. The protocol utilizes one or more of the following dose reduction techniques: automated exposure control, adjustment of mA and/or kV according to patient size,and/or use of iterative reconstruction technique. COMPARISON: Prior study dated: 03/04/2024 FINDINGS: The visualized lung bases are unremarkable. The visualized portions of the heart are within normal limits. Hepatomegaly. No focal lesion is seen. There are surgical clips in the gallbladder fossa consistent with a prior cholecystectomy. Splenomegaly. Calcified granulomata are again seen. Normal pancreas. Normal bilateral adrenal glands. Normal visualized stomach. Normal in caliber small bowel loops. No evidence of acute diverticulitis. The appendix is visualized and appears normal. Normal abdominal aorta. No retroperitoneal adenopathy. Normal right kidney. Small nonobstructing stones in the left kidney. Previously seen stone in proximal left ureter is not seen on today''s exam. No evidence of hydronephrosis. Normal urinary bladder. IUD seen in the uterus. Normal abdominal wall. No demonstrated acute osseous changes. CT/Abdomen/Pelvis W IV Cont ONLY IMPRESSION: 1. Previously noted stone in the proximal left ureter is not seen on today''s exam. 2. Small nonobstructing stones in the left kidney without evidence of hydronephrosis. 3. Hepatosplenomegaly. Electronically Signed: River Segovia MD at 14:14 EDT ,
--- NOTE | 2024-04-03 13:30 | CT_ITS ---
STUDY: CTA CHEST REASON FOR EXAM: Female, 58 years old. Shortness of breath, RLE swelling RADIATION DOSAGE (If Supplied By Facility): CTDIvol = ( 22.77 ) mGy, DLP = ( 2216.07 ) mGycm TECHNIQUE: The examination was performed with the intravenous administration of IV 100mL Isovue-370. Post-processing of the angiographic images was performed, with multiplanar reformation and 3D reconstruction. The protocol utilizes one or more of the following dose reduction techniques: automated exposure control, adjustment of mA and/or kV according to patient size,and/or use of iterative reconstruction technique. COMPARISON: No relevant prior comparison study available FINDINGS: Normal enhancement of the main pulmonary artery and right and left pulmonary arteries. There is limited enhancement of the bilateral peripheral pulmonary arteries. There is no demonstrated pulmonary embolism. Normal thoracic aorta and visualized great vessels. There is no demonstrated aortic dissection. Normal heart and pericardium. There are calcifications of the coronary arteries. Normal mediastinum. Normal hilar regions. Normal visualized trachea and bronchi. Atelectatic changes or scarring in the right upper lobe. Mild hazy groundglass opacities in the lower lungs could reflect mild pulmonary edema. No focal consolidation. There are no pleural effusions. Normal chest wall structures. Mild degenerative changes of thoracic spine. The visualized portions of the upper abdomen in the splenomegaly. CT/CTA Chest W/WO Contrast IMPRESSION: 1. No evidence of central pulmonary embolism. Suboptimal evaluation of the distal peripheral branches. 2. No evidence of aortic dissection. 3. Mild groundglass opacities could reflect early pulmonary edema. No focal consolidation is seen. 4. Hepatosplenomegaly. Electronically Signed: River Segovia MD at 14:01 EDT ,
[2024-04-03 13:44] LABS: Differential Comment MANUAL
[2024-04-03 13:48] LABS: Lymphocyte 11 % (19-41); Monocyte 5 % (0-10); Neutrophil-Band 3 % (0-5); Neutrophil-Segmented 81 % (47-70); Total Cells Counted 100 (MANUAL DIFF)
[2024-04-03 13:49] LABS: Reactive Lymphocyte 2+
[2024-04-03 13:50] LABS: Platelet Estimate ADEQUATE (ADEQ); Red Cell Morphology NORM C+C NORMAL (NORM C&C)
[2024-04-03 13:51] LABS: Absolute Neutrophil Count 5.6 X10^3/uL (2.0-7.7)
[2024-04-03 13:52] LABS: Absolute Lymphocyte Count 0.74 X10^3/uL (0.83-4.51)
[2024-04-03 15:05] LABS: Mucous, Urine 0 SEEN /hpf (<or=2+)
[2024-04-03 15:08] LABS: Color, Urine Yellow (Yellow); Glucose, Dipstick Normal (Normal); Ketone-Dipstick Negative (Negative); Leukocyte Esterase-Dipstick 500 /ul (Negative); Nitrite-Dipstick Negative (Negative); Occult Blood-Urine 250 /ul (Negative); Protein-Dipstick 30 mg/dl (Negative); Urine Bilirubin Dipstick Negative (Negative); Urine Clarity Cloudy (Clear); Urine Urobilinogen 4 mg/dl (Normal); Urine pH 6.5 (5.0 - 8.0)
[2024-04-03 15:18] LABS: Red Blood Cells-Urine 25-50 SEEN /hpf (0-5)
[2024-04-03 15:19] LABS: White Blood Cells 50-100 SEEN /hpf (0-5)
[2024-04-03 15:21] LABS: Squamous Epithelial Cells - UA 5-10 SEEN /hpf (5-10)
[2024-04-03 15:22] LABS: Bacteria RARE /hpf (None Seen)
[2024-04-03 15:22] LABS: BNP,B-Type NATRIURETIC PEPTIDE 45.5 pg/mL (0-100)
--- NOTE | 2024-04-03 16:43 | EX.ED.DYSGE1 ---
HPI History of Present Illness Chief Complaint: General Illness Narrative Narrative: Patient is a 58-year-old female with past medical history of depression, hypothyroidism, anemia, diabetes, hypertension, hypothyroidism who presented to the emergency department with a chief complaint of abdominal pain, generalized weakness, shortness of breath and not feeling well. Patient states that the past several days she has not been feeling well and notes that the past few days she has had worsening shortness of breath with exertion. Patient denies any recent sick contacts. Patient states that she was at work yesterday with increasing her symptoms prompting her to come here for further evaluation management. [facility] Medical History Cirrhosis Irritability History of alcoholism Fatigue Dysuria Dry mouth Dry eyes Dizziness Difficulty urinating Colon polyps Bladder wall thickening Allergies Acute bronchitis, unspecified Hyperkalemia Noncompliance with medication regimen Depression Hypothyroid History of frequent headaches Back pain Bloody stool Thyroid disease Anemia Diabetes Arthritis Morbid obesity Hyperlipidemia Hypothyroidism Hypertension Home Medications ?Medication ?Instructions ?Recorded ?Last Taken ?Type albuterol sulfate 2.5 mg/3 mL 2.5 mg inhalation Q4H PRN PRN Sob 04/11/18 04/17/23 History (0.083 %) solution for nebulization &/Or Wheezing atorvastatin 20 mg tablet 20 mg PO QHS CHOLESTEROL 10/06/19 03/02/24 History blood-glucose meter,continuous #1 ea 02/18/23 Unknown Rx (Dexcom G7 [employer] Supervisor) blood-glucose sensor (Dexcom G7 #3 ea 02/18/23 Unknown Rx Sensor device) acetaminophen 500 mg tablet 500 - 1,000 mg PO Q6H PRN fever or 04/18/23 03/03/24 History pain furosemide 20 mg tablet (Lasix) 20 mg PO DAILY #30 tabs 04/20/23 Unknown Rx amlodipine 2.5 mg tablet 2.5 mg PO DAILY #90 tabs 09/23/23 03/03/24 Rx blood sugar diagnostic (OneTouch #100 ea 09/23/23 Unknown Rx Verio test strips) levothyroxine 200 mcg tablet 200 mcg PO DAILY #90 tabs 09/23/23 03/03/24 Rx dexamethasone 6 mg tablet 6 mg PO DAILY 6 days #6 tabs 03/07/24 Unknown Rx nystatin 100,000 unit/mL oral 500,000 unit (5 mL) PO 4X/DAY 7 03/07/24 Unknown Rx suspension days #140 mL dicyclomine 10 mg capsule 10 mg PO .QID 03/11/24 Unknown History fluoxetine 40 mg capsule 40 mg PO DAILY 03/11/24 Unknown History omeprazole 40 mg capsule,delayed 40 mg PO DAILY 03/11/24 Unknown History release benzonatate 200 mg capsule 200 mg PO BID-TID PRN 03/12/24 Unknown History dulaglutide 3 mg/0.5 mL 3 mg (0.5 mL) subcut QWEEK #2 mL 03/12/24 Unknown Rx subcutaneous pen injector (Trulicity) insulin regular hum U-500 conc 500 100 unit (0.2 mL) subcut TID #18 mL 03/12/24 Unknown Rx unit/mL(3 mL) subcut pen (Humulin R U-500 (Conc) Insulin Kwikpen) metformin 500 mg tablet 1,000 mg (2 x 500 mg) PO BID #360 03/12/24 Unknown Rx tabs Allergy/AdvReac Type Severity Reaction Status Date / Time codeine Allergy Angioedema Verified 04/03/24 11:07 nitrofurantoin Allergy edema Verified 04/03/24 11:07 Penicillins Allergy Rash Verified 04/03/24 11:07 Sulfa (Sulfonamide Allergy Rash Verified 04/03/24 11:07 Antibiotics) sulfamethoxazole (Bactrim) Allergy Unknown Verified 04/03/24 11:07 trimethoprim (Bactrim) Allergy Unknown Verified 04/03/24 11:07 Family History Other Cancer Surgical History Hx of cholecystectomy Social History household members: none Smoking Status: Former smoker alcohol intake: current alcohol intake frequency: a few times a month Alcohol type: hard liquor substance use type: does not use caffeine: Yes Type: tea ROS ROS ED ROS Narrative Constitutional: Complains of lightheadedness denies any fevers, chills, headaches Eyes: Denies double vision blurry vision changes vision Cardiovascular: Denies chest pain or palpitations Respiratory: Complains of shortness of breath as noted above denies coughing wheezing Abdomen: Complains of abdominal discomfort as noted above denies any nausea vomiting diarrhea : Denies any urinary symptoms Neurological: Denies numbness, weakness, tingling Musculoskeletal: Denies back pain Skin: Denies rashes or lesions EXAM Physical Exam Narrative Exam Narrative: general: Patient lying in bed rest comfortably did not appear to be in acute distress Head: Atraumatic, normocephalic Eyes: PERRL bilaterally, EOMI bilateral, no conjunctival injection noted Neck: Soft, supple, trach midline Cardiovascular: Regular rhythm no murmurs gallops rubs noted Respiratory: Clear to auscultation bilaterally no rales rhonchi wheeze noted Abdomen: Soft, nondistended, diffuse tenderness palpation no rebound or guarding on exam, bowel sounds present x 4 Extremities: Patient's right lower extremity is more swollen than the left lower extremity, 1+ pitting edema bilateral lower extremities, radial pulses +2/4 in the bilateral extremities Neurological: Patient following commands knew that she was at [facility] years 2023 Skin: Warm, dry, patient has some left lower extremity erythema noted concerning for cellulitis intact Const Vital Signs: 04/03/24 11:05 04/03/24 11:05 04/03/24 13:22 Temperature 97.6 F L Temperature Source Temporal Pulse Rate 86 80 Respiratory Rate 16 18 Respiratory Effort Short of Breath Respiratory Pattern Normal Blood Pressure 125/80 H 103/83 H Blood Pressure Mean 95 89 Pulse Ox 93 92 Oxygen Delivery Method Room Air Room Air 04/03/24 15:39 04/03/24 16:29 04/03/24 16:34 Temperature Temperature Source Pulse Rate 89 116 H Respiratory Rate 18 Respiratory Effort Respiratory Pattern Blood Pressure 104/78 Blood Pressure Mean 86 Pulse Ox 93 94 90 Oxygen Delivery Method Room Air Room Air Room Air MDM MDM MDM Narrative Medical decision making narrative: Patient is a 58-year-old female who presented to the emerged part chief complaint of shortness of breath generalized not feeling well. Patient will have workup performed here on the differential diagnose includes but not limited to upper respiratory infection second viral etiology, CHF, DVT, PE, left lower extremity cellulitis. Once workup is obtained and reviewed she will be reevaluated. Patient patient's a CBC reviewed showed a white blood count is normal at 6.7, hemoglobin is 77 which her baseline from previous back on 03/07/2024 was 11.2, patient's MCV was noted to be 90, patient's sodium normal 135, potassium normal 4.4, creatinine normal at 0.71. Patient's troponin was noted be normal at 39, her EKG was reviewed as well which showed sinus rhythm with a rate of 90 bpm. Patient AST and ALT were 17 and 18 respectively with a normal total bilirubin 0.50. Patient lipase normal at 28. Patient's urinalysis showed 500 leukocyte esterase negative nitrates 500 white cells seen and rare bacteria this was sent for culture. She will be given a gram Rocephin which will cover her urine and her left lower extremity cellulitis. Patient CT chest with contrast showed no evidence of pulmonary embolism no evidence of dissection showed mild groundglass opacities could reflect early pulmonary edema no focal consolidation noted and hepatosplenomegaly. Patient CT abdomen pelvis with IV contrast reviewed and showed a previously noted some stone in the proximal left ureter, small nonobstructing stones in the left kidney without evidence of hydronephrosis hepatosplenomegaly. Patient's DVT study did not reveal any evidence of blood clots. Patient was ambulated here in the emergency department and she had dyspnea on exertion she then tachycardic and her oxygen level went to 90% on room air. I do believe that she will warrant admission at this point time. Discussed case with hospitalist Dr. Bustillos who accept patient for admission. He is requesting rectal exam performed this will be performed. Patient notified she is agreeable this plan all questions answered bedside. Lab Data Labs: Laboratory Results - last 24 hr 04/03/24 04/03/24 12:36 14:59 WBC 6.7 RBC 2.50 L Hgb 7.0 L Hct 22.5 L MCV 90.0 MCH 28.0 MCHC 31.1 L RDW Std Deviation 57.3 H RDW Coeff of [place] 18.5 H Plt Count 219 MPV 10.4 Neut % (Auto) Not Reportable Absolute Neuts (auto) 5.6 Absolute Lymphs (auto) 0.74 L Total Counted 100 Neutrophils % (Manual) 81 H Band Neutrophils % 3 Lymphocytes % (Manual) 11 L Monocytes % (Manual) 5 Differential Comment MANUAL Diff Path Review May foll Reactive Lymphocytes 2+ Platelet Estimate ADEQUATE RBC Morphology NORM C+C Sodium 135 L Potassium 4.4 Chloride 103 Carbon Dioxide 29.0 Anion Gap 3 L BUN 25 H Creatinine 0.71 Est GFR (MDRD) Af Amer 108 Est GFR (MDRD) Non-Af 90 BUN/Creatinine Ratio 35.0 H Glucose 282 H Calcium 8.9 Total Bilirubin 0.50 AST 17 ALT 18 Alkaline Phosphatase 176 H Troponin I High Sens 39 B-Natriuretic Peptide 45.5 Total Protein 6.9 Albumin 2.4 L Globulin 4.5 H Albumin/Globulin Ratio 0.5 L Lipase 28 Urine Color Yellow Urine Clarity Cloudy Urine pH 6.5 Ur Specific [place] 1.010 Urine Protein 30 H Urine Glucose (UA) Normal Urine Ketones Negative Urine Occult Blood 250 H Urine Nitrite Negative Urine Bilirubin Negative Urine Urobilinogen 4 H Ur Leukocyte Esterase 500 H Urine RBC 25-50 SEEN Urine WBC 50-100 SEEN Ur Squamous Epith Cells 5-10 SEEN Urine Bacteria RARE Urine Mucus 0 SEEN Radiography Diagnostic Testing: Clinical Impression(s) from Imaging Studies Abdomen/Pelvis CT 04/03/24 13:30 IMPRESSION: 1. Previously noted stone in the proximal left ureter is not seen on today''s exam. 2. Small nonobstructing stones in the left kidney without evidence of hydronephrosis. 3. Hepatosplenomegaly. Electronically Signed: River Segovia MD at 14:14 EDT , Chest CTA 04/03/24 13:30 IMPRESSION: 1. No evidence of central pulmonary embolism. Suboptimal evaluation of the distal peripheral branches. 2. No evidence of aortic dissection. 3. Mild groundglass opacities could reflect early pulmonary edema. No focal consolidation is seen. 4. Hepatosplenomegaly. Electronically Signed: River Segovia MD at 14:01 EDT , Discharge Plan Triage Chief Complaint: General Illness ED Provider: Isidro Lewis Dx/Rx/DC Orders Clinical Impression: Dyspnea on exertion, Cellulitis of leg, Urinary tract infection Prescriptions: No Action albuterol sulfate 2.5 mg /3 mL (0.083 %) solution for nebulization 2.5 mg INHALATION Q4H PRN PRN (Reason: Sob &/Or Wheezing) (DME) Dexcom G7 Sensor Device See Rx Instructions .Route Qty: 3 5RF Rx Instructions: 1 sensor q 10 days (DME) Dexcom G7 [employer] Supervisor Misc See Rx Instructions .Route Qty: 1 0RF Rx Instructions: As directed amlodipine 2.5 mg tablet 2.5 mg PO DAILY Qty: 90 1RF (DME) OneTouch Verio test strips Strip See Rx Instructions .Route Qty: 100 5RF Rx Instructions: 4x/day levothyroxine 200 mcg tablet 200 mcg PO DAILY Qty: 90 1RF benzonatate 200 mg capsule 200 mg PO BID-TID PRN Trulicity 3 mg/0.5 mL pen injector 3 mg subcut QWEEK Qty: 2 5RF Humulin R U-500 (Conc) Kwikpen 500 unit/mL (3 mL) insulin pen 100 unit subcut TID Qty: 18 5RF Rx Instructions: Increase by 10u/meal if glucose >[address] Cervantes's office, hold if glucose <100. metformin 500 mg tablet 1,000 mg PO BID Qty: 360 1RF dicyclomine 10 mg capsule 10 mg PO .QID fluoxetine 40 mg capsule 40 mg PO DAILY omeprazole 40 mg capsule,delayed release(DR/EC) 40 mg PO DAILY atorvastatin 20 MG tablet 20 mg PO QHS acetaminophen 500 mg tablet 500 - 1,000 mg PO Q6H PRN (Reason: fever or pain) furosemide [Lasix] 20 mg tablet 20 mg PO DAILY Qty: 30 0RF nystatin 100,000 unit/mL Suspension 500,000 unit PO 4X/DAY 7 Days Qty: 140 0RF dexamethasone 6 mg tablet 6 mg PO DAILY 6 Days Qty: 6 0RF Primary Care Provider: OLU ORTIZ Referrals: OLU ORTIZ CRNP [Primary Care Provider] - Print Language: Kittitian
[2024-04-03] MEDS: Ceftriaxone 1 GM/50 ML BAG IV (17:07)
--- NOTE | 2024-04-03 18:36 | HP.PCM.HOS_ITS ---
HPI - General General Date of Admission: 04/03/24 HPI Narrative LEROY TYLER, is a 58 F who presents to the hospital with fatigue, shortness of breath as well as dark stools for the last 3 to 4 days. She has been feeling short of breath and fatigued for about the last week. She does state that she has a history of colitis but that she is managed by her PCP as an outpatient, she is unsure when the last time she had a colonoscopy is. She denies any hematemesis. In the ER she was found to have a hemoglobin of 7 today, prior to that her hemoglobin was 11.2 less than a month ago. Hemoccult in the ER was positive and she was given a dose of Protonix. [facility] Medical History Cirrhosis Irritability History of alcoholism Fatigue Dysuria Dry mouth Dry eyes Dizziness Difficulty urinating Colon polyps Bladder wall thickening Allergies Acute bronchitis, unspecified Hyperkalemia Noncompliance with medication regimen Depression Hypothyroid History of frequent headaches Back pain Bloody stool Thyroid disease Anemia Diabetes Arthritis Morbid obesity Hyperlipidemia Hypothyroidism Hypertension Home Medications ?Medication ?Instructions ?Recorded ?Last Taken ?Type albuterol sulfate 2.5 mg/3 mL 2.5 mg inhalation Q4H PRN PRN Sob 04/11/18 04/17/23 History (0.083 %) solution for nebulization &/Or Wheezing atorvastatin 20 mg tablet 20 mg PO QHS CHOLESTEROL 10/06/19 03/02/24 History blood-glucose meter,continuous #1 ea 02/18/23 Unknown Rx (Dexcom G7 [employer]) blood-glucose sensor (Dexcom G7 #3 ea 02/18/23 Unknown Rx Sensor device) acetaminophen 500 mg tablet 500 - 1,000 mg PO Q6H PRN fever or 04/18/23 03/03/24 History pain furosemide 20 mg tablet (Lasix) 20 mg PO DAILY #30 tabs 04/20/23 Unknown Rx amlodipine 2.5 mg tablet 2.5 mg PO DAILY #90 tabs 09/23/23 03/03/24 Rx blood sugar diagnostic (OneTouch #100 ea 09/23/23 Unknown Rx Verio test strips) levothyroxine 200 mcg tablet 200 mcg PO DAILY #90 tabs 09/23/23 03/03/24 Rx dexamethasone 6 mg tablet 6 mg PO DAILY 6 days #6 tabs 03/07/24 Unknown Rx nystatin 100,000 unit/mL oral 500,000 unit (5 mL) PO 4X/DAY 7 03/07/24 Unknown Rx suspension days #140 mL dicyclomine 10 mg capsule 10 mg PO .QID 03/11/24 Unknown History fluoxetine 40 mg capsule 40 mg PO DAILY 03/11/24 Unknown History omeprazole 40 mg capsule,delayed 40 mg PO DAILY 03/11/24 Unknown History release benzonatate 200 mg capsule 200 mg PO BID-TID PRN 03/12/24 Unknown History dulaglutide 3 mg/0.5 mL 3 mg (0.5 mL) subcut QWEEK #2 mL 03/12/24 Unknown Rx subcutaneous pen injector (Trulicity) insulin regular hum U-500 conc 500 100 unit (0.2 mL) subcut TID #18 mL 03/12/24 Unknown Rx unit/mL(3 mL) subcut pen (Humulin R U-500 (Conc) Insulin Kwikpen) metformin 500 mg tablet 1,000 mg (2 x 500 mg) PO BID #360 03/12/24 Unknown Rx tabs Allergy/AdvReac Type Severity Reaction Status Date / Time codeine Allergy Angioedema Verified 04/03/24 11:07 nitrofurantoin Allergy edema Verified 04/03/24 11:07 Penicillins Allergy Rash Verified 04/03/24 11:07 Sulfa (Sulfonamide Allergy Rash Verified 04/03/24 11:07 Antibiotics) sulfamethoxazole (Bactrim) Allergy Unknown Verified 04/03/24 11:07 trimethoprim (Bactrim) Allergy Unknown Verified 04/03/24 11:07 Family History Other Cancer Surgical History Hx of cholecystectomy Social History (Updated 04/03/24 @ 18:35 by Bia Sexton) household members: none housing: apartment pets and animals: No Smoking Status: Former smoker alcohol intake: current alcohol intake frequency: a few times a month Alcohol type: hard liquor substance use type: does not use caffeine: Yes Type: tea ROS Constitutional Constitutional: Reports chills, fatigue and weakness; Denies fever(s) or malaise Eyes Eyes: Denies blurry vision ENT HEENT: Denies headache(s) or nasal discharge Cardiovascular Cardiovascular: Denies chest pain, dyspnea on exertion or syncope Respiratory/Chest Respiratory/Chest: Reports shortness of breath at rest; Denies cough or shortness of breath with exertion Gastrointestinal Gastrointestinal: Denies constipation, diarrhea, nausea or vomiting Genitourinary Genitourinary: Denies dysuria Neurologic Neurologic: Denies focal weakness, numbness or tremor(s) Psychiatric Psychiatric: Denies anxiety or depression Vital Signs Vital Signs Vital Signs: 04/03/24 11:05 04/03/24 11:05 04/03/24 13:22 Temperature 97.6 F L Temperature Source Temporal Pulse Rate 86 80 Respiratory Rate 16 18 Respiratory Effort Short of Breath Respiratory Pattern Normal Blood Pressure 125/80 H 103/83 H Blood Pressure Mean 95 89 Blood Pressure Source Blood Pressure Position Blood Pressure Location Pulse Ox 93 92 Oxygen Delivery Method Room Air Room Air Oxygen Flow Rate (L/min) 04/03/24 15:39 04/03/24 16:29 04/03/24 16:34 Temperature Temperature Source Pulse Rate 89 116 H Respiratory Rate 18 Respiratory Effort Respiratory Pattern Blood Pressure 104/78 Blood Pressure Mean 86 Blood Pressure Source Blood Pressure Position Blood Pressure Location Pulse Ox 93 94 90 Oxygen Delivery Method Room Air Room Air Room Air Oxygen Flow Rate (L/min) 04/03/24 18:00 04/03/24 18:05 04/03/24 18:28 Temperature 97.6 F L 97 F L Temperature Source Temporal Pulse Rate 78 61 85 Respiratory Rate 16 18 20 H Respiratory Effort Respiratory Pattern Blood Pressure 118/62 118/72 117/61 Blood Pressure Mean 80 87 79 Blood Pressure Source Blood Pressure Position Blood Pressure Location Pulse Ox 98 99 Oxygen Delivery Method Oxygen Flow Rate (L/min) 04/03/24 18:29 04/03/24 18:32 Temperature 97 F L Temperature Source Temporal Pulse Rate 81 Respiratory Rate 20 H Respiratory Effort Respiratory Pattern Blood Pressure 117/61 Blood Pressure Mean 79 Blood Pressure Source Monitor Blood Pressure Position Semi-Fowlers Blood Pressure Location Left Arm Pulse Ox 87 98 Oxygen Delivery Method Room Air Nasal Cannula Oxygen Flow Rate (L/min) 2 Weight Weight: 245 lb 13.047 oz Body Mass Index (BMI) 46.4 Physical Exam Narrative General: Alert, Oriented x3, Cooperative, No apparent distress, morbidly obese HEENT: Atraumatic, PERRLA, EOMI, Normocephalic Oral: Moist Mucosa Neck: Supple, No JVD Lungs: Diminished, Normal air movement, No rhonchi, No wheeze, No rales Cardiovascular: Regular rate, Regular Rhythm, Normal S1, Normal S2, No murmurs Abdomen: Soft, Non Tender, Non-Distended, No Hepato-splenomegaly Extremities: Trace edema, Capillary Refill Less than 3 Seconds Skin: No rashes, No breakdown Musculoskeletal: No Tenderness to Palpation of Joints or Extremities Neurological: No focal neurological deficits, Motor Exam 5/5 strength throughout, Sensory exam intact to light touch and pain Psych/Mental Status: Flat Results Lab / Micro Data 04/03/24 17:12 04/03/24 12:36 Labs: Laboratory Results - last 24 hr 04/03/24 12:36: WBC 6.7, RBC 2.50 L, Hgb 7.0 L, Hct 22.5 L, MCV 90.0, MCH 28.0, MCHC 31.1 L, RDW Std Deviation 57.3 H, RDW Coeff of [place] 18.5 H, Plt Count 219, MPV 10.4, Neut % (Auto) Not Reportable, Absolute Neuts (auto) 5.6, Absolute Lymphs (auto) 0.74 L, Total Counted 100, Neutrophils % (Manual) 81 H, Band Neutrophils % 3, Lymphocytes % (Manual) 11 L, Monocytes % (Manual) 5, Differential Comment MANUAL, Diff Path Review May foll, Reactive Lymphocytes 2+, Platelet Estimate ADEQUATE, RBC Morphology NORM C+C, Sodium 135 L, Potassium 4.4, Chloride 103, Carbon Dioxide 29.0, Anion Gap 3 L, BUN 25 H, Creatinine 0.71, Est GFR (MDRD) Af Amer 108, Est GFR (MDRD) Non-Af 90, BUN/Creatinine Ratio 35.0 H, Glucose 282 H, Calcium 8.9, Total Bilirubin 0.50, AST 17, ALT 18, A lkaline Phosphatase 176 H, Troponin I High Sens 39, B-Natriuretic Peptide 45.5, Total Protein 6.9, Albumin 2.4 L, Globulin 4.5 H, Albumin/Globulin Ratio 0.5 L, Lipase 28 04/03/24 14:59: Urine Color Yellow, Urine Clarity Cloudy, Urine pH 6.5, Ur Specific [place] 1.010, Urine Protein 30 H, Urine Glucose (UA) Normal, Urine Ketones Negative, Urine Occult Blood 250 H, Urine Nitrite Negative, Urine Bilirubin Negative, Urine Urobilinogen 4 H, Ur Leukocyte Esterase 500 H, Urine RBC 25-50 SEEN, Urine WBC 50-100 SEEN, Ur Squamous Epith Cells 5-10 SEEN, Urine Bacteria RARE, Urine Mucus 0 SEEN Micro: Microbiology 04/03/24 17:00 Stool Stool Occult Blood (SHAHEEN) - Final Occult Blood Positive 04/03/24 12:36 Mucosa - Nose SARS-CoV-2, Influenza & RSV (PCR) - Final Imaging Radiology Impression Abdomen/Pelvis CT 04/03/24 13:30 IMPRESSION: 1. Previously noted stone in the proximal left ureter is not seen on today''s exam. 2. Small nonobstructing stones in the left kidney without evidence of hydronephrosis. 3. Hepatosplenomegaly. Electronically Signed: River Segovia MD at 14:14 EDT , Chest CTA 04/03/24 13:30 IMPRESSION: 1. No evidence of central pulmonary embolism. Suboptimal evaluation of the distal peripheral branches. 2. No evidence of aortic dissection. 3. Mild groundglass opacities could reflect early pulmonary edema. No focal consolidation is seen. 4. Hepatosplenomegaly. Electronically Signed: River Segovia MD at 14:01 EDT , Assessment & Plan Assessment/Plan (1) Acute GI bleeding: PLAN: Plan 1. Acute blood loss anemia secondary to GI bleed/GERD ? She is dropped about 4 g in less than a month ? Hemoccult is positive ? Continue with twice daily PPI ? Placed on a clear liquid diet ? Will consult GI for EGD and possible colonoscopy given her history of colitis 2. Essential HTN/HLD ? Can continue with her home medications when verified ? Will monitor and make adjustments as necessary ? Continue with Lipitor when verified ? Had an echo in 2022 with an EF of 60% and stage I diastolic dysfunction 3. DM2 ? Continue with sliding scale insulin ? Accu-Cheks ACHS ? Will monitor make adjustments as necessary ? Can resume her home medications if appropriate when verified 4. Hypothyroidism ? Stable ? Continue with Synthroid when verified DVT: SCDs 75 minutes was spent on direct patient care, including documentation as well as chart review and collaboration with colleagues Charges/Coding Visit Charges Inpatient E&M: 63355 Init Hosp L3
[2024-04-03 19:19] LABS: Hematocrit 23.1 % (37-47); Hemoglobin 6.8 g/dL (12.0-15.0)
[2024-04-03] MEDS: Pantoprazole Sodium 40 MG in 0.9% Normal Saline (100mL MB+) 100 ML 330 MG IV (20:48)
[2024-04-03] MEDS: Insulin Lispro 100 UNIT/ML INSULN.PEN SC (21:09)
[2024-04-04] VITALS (21 sets, daily range): BP systolic 100–122; BP diastolic 37–86; PULSE 81–107; RESP 14–22; TEMP 35.9–37.2; O2SAT 93–100; BMI 46.4
--- NOTE | 2024-04-04 | IMM_PTH ---
PATIENT: LEROY TYLER LOC: [facility] U#:[id number] AGE/SX: 58/F ROOM: [facility] RE04/03/[address]: Dr. Law Trinh DO : 1965 BED: 1 DIS: 04/07/2024 SPEC #: [id number] RECD: 04/07/24 10:32 STATUS: GURMEET REQ #: [id number] NICOL: 04/04/24 00:[address]: Brayan Cast DEPT: IMMUNOHISTOCHEMISTRY RECD BY: Zion Lucas ENTERED: 04/07/24 10:33 SP TYPE: IMMUNO OTHR DR: DO Dr. Sergo Shepard MD KRISTA MAST, CRNP Tissues: Gastric mucous membrane Procedures: Synapto (add) CD45 (add) CD56 (add) CEA (add) CHROMO (add) CK20 (add) CK7 (add) CK8 (add) TREJO-2 (add) KI-67 (add) P53 (add) 34BE12 (add) Pankeratin (initial) CDX2 (add) NSE (add) S-100 (add) PHYSICIAN & INSTITUTION [place] [id number] SPECIMEN INFORMATION: Tissue Source: Gastric mass Clinical Info: Upper GI bleed Specimen Number: [id number] CPT code: 20488,[id number] METHODOLOGY: Deparaffinized sections of prefer/formalin-fixed tissue or PAP/DQ stained slides are incubated with monoclonal/polyclonal antibodies/oligonucleotide probes. Localization is made via biotin free immunoperoxidase method. Appropriate controls are performed and reacted as expected. Results on target cell population are indicated in the following table: RESULTS: ANTIBODY / CLONE RESULT AE1-3 (AE1/AE3/PCK26) positive CK7 (OV-TL12/30) negative CK8 (26aujsE70) positive CK20 (KS20.8) negative CDX2 (GAT4321Z) positive, focal, dim CD45 (RP2/18) positive 34BE12 (34BE12) negative S-100 (4C4.9) negative CD56 (123C3.D5) positive Chromo (LK2H10) positive Synapto (polyclonal) positive NSE Neuron Specific Enolase positive CEA (11-7/TF-3HB-1) negative P53 (DO-7) positive, wild type Ki-67 (30-9) positive, 3% MOC-31 (4561) positive These tests were developed and their performance characteristics determined by [facility]. They may not have been cleared or approved by the U.S. Food and Drug Administration. The FDA has determined that such clearance or approval is not necessary. The above immunohistochemical/dualISH markers are ordered and reviewed by the Pathologist. INTERPRETATION: Gastric mass, biopsy: Neuroendocrine carcinoma. AM.mr 04/08/2024
[2024-04-04 04:43] LABS: Hemoglobin 7.5 g/dL (12.0-15.0); Mean Corpuscular Hgb 27.1 pg (27.0-32.0); Mean Corpuscular Volume 90.3 fL (81-99); Mean Platelet Vol. 10.1 fl (6.2-12.0); POSITIVE COUNT YES; POSITIVE MORPHOLOGY YES; Platelet Count 211 K/mm3 (150-450); RBC Distribution Width CV 18.6 % (11.6-14.6); RBC Distribution Width SD 57.4 fl (35.1-43.9); Red Blood Count 2.77 M/mm3 (4.2-5.4); White Blood Count 7.4 K/mm3 (4.4-11.0)
[2024-04-04 04:52] LABS: Differential Indicated MANUAL DIFF
[2024-04-04 05:07] LABS: Anion Gap 4 (5-15); BUN 15 mg/dL (7-18); BUN/Creat Ratio 23.7 RATIO (10-20); Calcium,Total 8.8 mg/dL (8.5-10.1); Chloride 104 mmol/L (98-107); Creatinine, Serum 0.63 mg/dL (0.55-1.02); EST Glomerular Filtration Rate 103 mL/min (>60); Est Glom Filt Rate - Afr Amer 125 mL/min (>60); Estimated Creatinine Clearance 113.97 ml/min; Glucose 217 mg/dL (74-106); Potassium 4.1 mmol/L (3.5-5.1); Sodium Level 136 mmol/L (136-145)
[2024-04-04 06:14] LABS: Lymphocyte 17 % (19-41); Monocyte 3 % (0-10); Neutrophil-Band 27 % (0-5); Neutrophil-Segmented 53 % (47-70); Total Cells Counted 100 (MANUAL DIFF)
[2024-04-04 06:15] LABS: Differential Comment SCANNED; Platelet Morphology LARGE
[2024-04-04 06:16] LABS: Absolute Lymphocyte Count 1.26 X10^3/uL (0.83-4.51); Absolute Neutrophil Count 5.9 X10^3/uL (2.0-7.7)
[2024-04-04 07:02] LABS: Bedside Glucose 184 mg/dL (74-106)
[2024-04-04 07:05] LABS: Bedside Glucose 214 mg/dL (74-106)
--- NOTE | 2024-04-04 09:08 | CASEMGMT ---
ALFONZO WHATLEY Assessment: Face to Face with pt for initial transition planning/care coordination assessment. ALFONZO WHATLEY introduced self and role at [facility], pt voices understanding and consents to assessment. Pt is A&O x4 and answers all questions appropriately at this time. Care providers, pharmacy, and demographics verified/updated. Admitting Dx: dyspnea on exertion, tachycardia PCP:Neelima Specialists:malissa Cervantes; Weston Ware- cannot recall name Preferred Pharmacy: [facility] Insurance: Egnyte/Confer Prescription Benefit: yes LNOK: Tj Montejo, brother Living Arrangements: Pt lives alone in a ground level apt with 5-6 steps to enter with a rail. Pt reports she is I in ADL's and denies concerns at home. Transportation: Pt drives self and denies concerns with transportation. DME:BGM with sufficient supplies, insulin with sufficient needles and supply HHC/SNF: Denies hx of Pt states no concerns with going home at time of dc. Pt is active with [facility] and would like to continue upon dc. Pt states she is working with [employer] on replacing her CPAP. Pt states no further concerns/needs. CM to follow. Advised pt to ask CM if any further question/concerns/needs arise, voices understanding. Pt Goal: Home Plan: Home, follow for oxygen. Resume [facility]. Taz MEJÍA CM
[2024-04-04] MEDS: Pantoprazole Sodium 40 MG in 0.9% Normal Saline (100mL MB+) 100 ML 330 MG IV (09:50)
[2024-04-04] MEDS: Levothyroxine 100 MCG Tablet 200 MCG PO (09:51)
[2024-04-04] MEDS: Fluoxetine HCl 40 MG CAPSULE PO (09:51)
[2024-04-04] MEDS: FLU VACC 2024-25(6MOS UP)/PF 45 MCG/0.5 ML SYRINGE IM (09:51)
--- NOTE | 2024-04-04 11:56 | PN.HOSP_ITS ---
Reason for Visit Reason for Visit: Diagnoses Gastrointestinal hemorrhage, unspecified (04/03/24) Subjective Subjective Saw patient at bedside this morning. Patient was mildly fatigued appearing but otherwise sitting up comfortably in bed, conversing normally, in no acute distress. She reported feeling slightly better than yesterday after the blood transfusion. She denied any dark or bloody bowel movements overnight. Denies any significant acid reflux currently. No other acute concerns this morning. Objective Data Objective Data Vital Signs: Vital Signs Temp Pulse Resp BP Pulse Ox O2 Del Method O2 Flow Rate 97.3 F L 89 18 107/63 96 Nasal Cannula 2 04/04/24 08:04 04/04/24 08:04 04/04/24 08:04 04/04/24 08:04 04/04/24 08:04 04/04/24 08:10 04/04/24 08:10 Oxygen Flow Rate (L/min) 2 Oxygen Delivery Method Nasal Cannula Weight: 111.5 kg Body Mass Index (BMI) 46.4 Intake & Output: Intake and Output for Last 24 Hours 04/02/24 04/03/24 04/04/24 23:59 23:59 23:59 Intake Total 1160 / 1160 0 / 0 Balance 1160 / 1160 0 / 0 Lab / Micro Data 04/04/24 04:15 04/04/24 04:15 Labs: Laboratory Results - last 24 hr 04/03/24 12:36: WBC 6.7, RBC 2.50 L, Hgb 7.0 L, Hct 22.5 L, MCV 90.0, MCH 28.0, MCHC 31.1 L, RDW Std Deviation 57.3 H, RDW Coeff of [place] 18.5 H, Plt Count 219, MPV 10.4, Neut % (Auto) Not Reportable, Absolute Neuts (auto) 5.6, Absolute Lymphs (auto) 0.74 L, Total Counted 100, Neutrophils % (Manual) 81 H, Band Neutrophils % 3, Lymphocytes % (Manual) 11 L, Monocytes % (Manual) 5, Differential Comment MANUAL, Diff Path Review May foll, Reactive Lymphocytes 2+, Platelet Estimate ADEQUATE, RBC Morphology NORM C+C, Sodium 135 L, Potassium 4.4, Chloride 103, Carbon Dioxide 29.0, Anion Gap 3 L, BUN 25 H, Creatinine 0.71, Est GFR (MDRD) Af Amer 108, Est GFR (MDRD) Non-Af 90, BUN/Creatinine Ratio 35.0 H, Glucose 282 H, Calcium 8.9, Total Bilirubin 0.50, AST 17, ALT 18, A lkaline Phosphatase 176 H, Troponin I High Sens 39, B-Natriuretic Peptide 45.5, Total Protein 6.9, Albumin 2.4 L, Globulin 4.5 H, Albumin/Globulin Ratio 0.5 L, Lipase 28 04/03/24 14:59: Urine Color Yellow, Urine Clarity Cloudy, Urine pH 6.5, Ur Specific [place] 1.010, Urine Protein 30 H, Urine Glucose (UA) Normal, Urine Ketones Negative, Urine Occult Blood 250 H, Urine Nitrite Negative, Urine Bilirubin Negative, Urine Urobilinogen 4 H, Ur Leukocyte Esterase 500 H, Urine RBC 25-50 SEEN, Urine WBC 50-100 SEEN, Ur Squamous Epith Cells 5-10 SEEN, Urine Bacteria RARE, Urine Mucus 0 SEEN 04/03/24 17:12: Hgb 6.8 L, Hct 23.1 L 04/03/24 20:44: Blood Type O NEGATIVE, Antibody Screen NEGATIVE, Crossmatch See Detail 04/03/24 21:03: POC Glucose 184 H 04/04/24 04:15: WBC 7.4, RBC 2.77 L, Hgb 7.5 L, Hct 25.0 L, MCV 90.3, MCH 27.1, MCHC 30.0 L, RDW Std Deviation 57.4 H, RDW Coeff of [place] 18.6 H, Plt Count 211, MPV 10.1, Neut % (Auto) Not Reportable, Absolute Neuts (auto) 5.9, Absolute Lymphs (auto) 1.26, Total Counted 100, Neutrophils % (Manual) 53, Band Neutrophils % 27 H, Lymphocytes % (Manual) 17 L, Monocytes % (Manual) 3, Differential Comment SCANNED, Plt Morphology Comment LARGE, Sodium 136, Potassium 4.1, Chloride 104, Carbon Dioxide 28.0, Anion Gap 4 L, BUN 15, Creatinine 0.63, Estim Creat Clear Calc 113.97, Est GFR (MDRD) Af Amer 125, Est GFR (MDRD) Non-Af 103, BUN/Creatinine Ratio 23.7 H, Glucose 217 H, Calcium 8.8 04/04/24 06:43: POC Glucose 214 H Micro: Microbiology 04/03/24 17:00 Stool Stool Occult Blood (SHAHEEN) - Final Occult Blood Positive 04/03/24 12:36 Mucosa - Nose SARS-CoV-2, Influenza & RSV (PCR) - Final Radiography Diagnostic Testing: Radiology Impression Venous Doppler Study 04/03/24 11:28 Interpretation Summary Deep veins of the right lower extremity are patent and compressible segmentally. There is no evidence of right lower extremity deep vein thrombosis. Valvular competence appears intact within the proximal deep venous system on the right . The right great saphenous vein appears patent and compressible segmentally. Ordering Physician: Isidro Lewis Referring Physician: Vero Ortez Performed By: Kiana Bal, [place], RVT Abdomen/Pelvis CT 04/03/24 13:30 IMPRESSION: 1. Previously noted stone in the proximal left ureter is not seen on today''s exam. 2. Small nonobstructing stones in the left kidney without evidence of hydronephrosis. 3. Hepatosplenomegaly. Electronically Signed: River Segovia MD at 14:14 EDT Reading Location ID and State: [facility] / [place] Tel , Service support , Chest CTA 04/03/24 13:30 IMPRESSION: 1. No evidence of central pulmonary embolism. Suboptimal evaluation of the distal peripheral branches. 2. No evidence of aortic dissection. 3. Mild groundglass opacities could reflect early pulmonary edema. No focal consolidation is seen. 4. Hepatosplenomegaly. Electronically Signed: River Segovia MD at 14:01 EDT , Physical Exam Const alert, oriented x3 and no apparent distress Constitutional Narrative: Pleasant middle-age female, morbidly obese, mildly fatigued appearing, otherwise sitting up comfortably in bed, conversing normally, in no acute distress. General Appearance: cooperative and comfortable HEENT normocephalic, head/scalp atraumatic, hearing grossly normal bilaterally, nasal mucous membranes and turbinates normal and moist oral mucous membranes Eyes PERRL, EOMs intact bilaterally and conjunctivae normal Neck full ROM Chest inspection of chest normal Resp normal respiratory effort, normal air movement, no use of accessory muscles and clear to auscultation bilaterally Cardio regular rate, regular rhythm, no murmurs and peripheral pulses 2+ throughout GI normal to inspection, nondistended, normoactive bowel sounds, soft to palpation, non-tender and non-distended Back/Spine normal ROM Extremity normal to inspection, full ROM and no pedal edema Skin no rashes or lesions noted Neuro no focal motor deficits and no sensory deficits noted Speech: speech normal Psych mental status grossly normal Assessment & Plan Assessment/Plan (1) Acute GI bleeding: PLAN: Plan Patient is a 58-year-old female who presented to [facility] ED on 04/03/2024 with worsening fatigue and shortness of breath and 3 to 4-day history of dark stools. 1. Acute blood loss anemia secondary to upper GI bleed from gastric polyp ? GI following. Hemoglobin 6.8 on admit, down from baseline of 11-12 in mid February. S/p 1 unit of packed red blood cells with improvement to hemoglobin 7.5. EGD on 04/04 showed multiple GE junction polyps with a severely bleeding single gastric polyp that was injected and clipped. Heavy NSAID use at home likely contributing to presentation. Per GI recs, started on Protonix infusion post EGD and advance to clear liquid diet. Follow-up a.m. CBC. Appreciate further GI recs. Chronic medical conditions: ? Morbid obesity: BMI 46 on admit. Complicates hospital course, care and prognosis. ? Asthma: Stable on room air. Continue home inhalers as needed. ? Type 2 diabetes mellitus: Treating with sliding scale insulin with meals while inpatient, adjust as needed. ? Hypertension: Holding home amlodipine and Lasix for now. ? Hyperlipidemia: Continue home statin. ? Depression: Stable. Continue home fluoxetine. ? Hypothyroidism: Continue home Synthroid. DVT prophylaxis: SCDs CODE STATUS: Full code, verified Expected disposition: Home, 1 to 2 days Total clinical time spent by myself addressing the patient's medical issues, reviewing all the data, and collaborating with patient's care team: 35 minutes. Charges/Coding Visit Charges Inpatient E&M: 55951 Subs Hosp L2
[2024-04-04 12:27] LABS: Bedside Glucose 199 mg/dL (74-106)
--- NOTE | 2024-04-04 13:20 | PCM.PRE.AN2 ---
ASA Classification* ASA Classification ASA Classification: 3 and E Assessment & Plan Anesthesia* Anesthesia Assessment Anesthesia Assessment: Discussed sedation and/or anesthesia options, risks, benefits, and alternatives with patient/parents/legal guardian/POA. Questions invited. The patient/parents/legal guardian/POA seems to understand and agrees to proceed with anesthesia plan. Reviewed the physical assessment, medical history, allergy history and patient home medications list prior to surgery/procedure/anesthetic and documented any changes. Performed airway and anesthesia risk assessments. Anesthesia Type Anesthesia Type: MAC (GA bkup) Anesthesia Focused Assessment* Temperature: 97.3 F Pulse Rate: 89 Blood Pressure: 107/63 Respiratory Rate: 18 Pulse Ox: 96 Airway Assessment Mouth opens: >3 cm Mallampati Score: II Focused Labs Anesthesia Preop lab: CBC WBC 7.4 K/mm3 (4.4-11.0) 04/04/24 04:15 RBC 2.77 M/mm3 (4.2-5.4) L 04/04/24 04:15 Hgb 7.5 g/dL (12.0-15.0) L 04/04/24 04:15 Hct 25.0 % (37-47) L 04/04/24 04:15 Plt Count 211 K/mm3 (150-450) 04/04/24 04:15 CHEMISTRY Potassium 4.1 mmol/L (3.5-5.1) 04/04/24 04:15 Sodium 136 mmol/L (136-145) 04/04/24 04:15 Magnesium 1.8 mg/dL (1.6-2.6) 03/05/24 05:30 Phosphorus 4.0 mg/dL (2.5-4.9) 04/19/23 05:45 BUN 15 mg/dL (7-18) 04/04/24 04:15 Creatinine 0.63 mg/dL (0.55-1.02) 04/04/24 04:15 Glucose 217 mg/dL (74-106) H 04/04/24 04:15 POC Glucose 199 mg/dL (74-106) H 04/04/24 12:06 TSH 5.970 uIU/mL (0.358-3.740) H 03/05/24 05:30 COAG PT 15.3 SECONDS (11.7-14.9) H 03/04/24 13:19 Urine Test Negative Negative 02/09/22 18:15 Pre-Assessment Diagnosis/Proposed Procedure Planned Operative Procedure(s): EGD Anesthesia History 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 When Was Last Pacemaker Check QUESTION #4 FULL TEXT: You/Your Family Experience fever (hyperthermia) with Anesthesia Last Oral Intake Last Oral intake: Last Oral Intake NPO since Meds taken in AM with sips of Yes 04/04/24 00:56 water? Meds patient instructed to take am of surgery PONV PONV - commercial management accountant: PONV - commercial management accountant Female HX of Motion Sickness HX of N/V After Surgery Non-Smoker Duration of Surgery greater than 60 minutes Number of Risk Factors PONV Score Height & Weight Height & Weight: Anesthesia: Height & Weight Height 5 ft 1 in 04/04/24 12:15 Weight: 111.5 kg 04/04/24 12:15 Body Mass Index (BMI) 46.4 04/04/24 00:56 Respiratory Assessment Respiratory Assessment - commercial management accountant: Respiratory Tract Infection Hx - commercial management accountant Hx Respiratory Tract Infection Yes: recent covid 04/04/24 00:56 STOP Sleep Apnea STOP Sleep Apnea - commercial management accountant: STOP Sleep Apnea - commercial management accountant Hx Hypertension Yes 04/03/24 18:38 Hx Sleep Apnea Yes 04/03/24 18:38 CPAP No: Used to have, doesn't 04/03/24 18:38 have anymore BIPAP No 04/03/24 18:38 Do you snore loudly (louder than talking or can be heard Do you often feel tired/ fatigued/ sleepy during daytime? Has anyone observed you stop breathing during sleep? STOP Results Positive 04/03/24 18:38 QUESTION #5 FULL TEXT : Do you snore loudly (louder than talking or can be heard through closed doors)? 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 Specify any problems low BP, heart racing, 04/03/24 18:38 trouble breathing Hx of Preganancy in last 3 N/A 04/03/24 18:38 Months Nurse Filling Out Transfusion JSEE 04/03/24 18:38 & Questions: Date: 04/03/24 04/03/24 18:38 Time: 18:40 04/03/24 18:38 Patient unable to answer at this time (ie. confused, unrespo /Reproduction History /Reproductive History - commercial management accountant: /Reproductive Hx- commercial management accountant Hx Now No 04/04/24 00:56 Gestational Age (in weeks): EDC: Hx Hx Para Hx Section SAB No 04/04/24 00:56 Active Medications Active Medications: Current Medications Generic Name Dose Route Start Last Admin Trade Name Freq PRN Reason Stop Dose Admin Albuterol Sulfate 2.5 mg 04/04/24 08:37 Albuterol 2.5 Mg/3 Ml Vial.Neb. INHALATION Q4H PRN PRN Sob &/Or Wheezing Atorvastatin Calcium 20 mg 04/04/24 22:00 Atorvastatin Calcium 20 Mg Tablet PO QHS WALT Fluoxetine HCl 40 mg 04/04/24 10:00 04/04/24 09:51 Fluoxetine Hcl 40 Mg Capsule PO 40 mg DAILY WALT Administration Glucagon 1 mg 09/13/24 18:28 Glucagon 1 Mg/Ml Syringe IM X1 PRN HYPOGLYCEMIA Protocol Dextrose 250 mls @ 0 mls/hr 04/03/24 18:28 Dextrose 10%-Water IV .Q0M PRN HYPOGLYCEMIA Protocol As Directed Pantoprazole Sodium 40 mg/ 110 mls @ 330 mls/hr 04/03/24 22:00 04/04/24 10:10 Sodium Chloride IV Infused Q12 WALT Infusion Sodium Chloride 250 mls @ 15 mls/hr 04/03/24 19:04 IV .[id number] PRN Additional IVPB Infusion Sodium Chloride 250 mls @ 15 mls/hr 04/03/24 19:04 IV .[id number] PRN Saline Flush Insulin Human Lispro 0 unit 04/03/24 22:00 04/04/24 11:45 Insulin Lispro 100 Unit/Ml Insuln.Pen SC Not Given ACHS WALT Protocol Levothyroxine Sodium 200 mcg 04/04/24 09:00 04/04/24 09:51 Levothyroxine 100 Mcg Tablet PO 200 mcg DAILY@0600 WALT Administration Sodium Chloride 10 - 40 ml 04/03/24 19:04 0.9% Saline Lock 10 Ml Syringe IV UD PRN SALINE FLUSH PFSH Medical History Cirrhosis Irritability History of alcoholism Fatigue Dysuria Dry mouth Dry eyes Dizziness Difficulty urinating Colon polyps Bladder wall thickening Allergies Acute bronchitis, unspecified Hyperkalemia Noncompliance with medication regimen Depression Hypothyroid History of frequent headaches Back pain Bloody stool Thyroid disease Anemia Diabetes Arthritis Morbid obesity Hyperlipidemia Hypothyroidism Hypertension Home Medications ?Medication ?Instructions ?Recorded ?Last Taken ?Type albuterol sulfate 2.5 mg/3 mL 2.5 mg inhalation Q4H PRN PRN Sob 04/11/18 04/17/23 History (0.083 %) solution for nebulization &/Or Wheezing atorvastatin 20 mg tablet 20 mg PO QHS CHOLESTEROL 10/06/19 03/02/24 History blood-glucose meter,continuous #1 ea 02/18/23 Unknown Rx (Dexcom G7 Federal Mediator) blood-glucose sensor (Dexcom G7 #3 ea 02/18/23 Unknown Rx Sensor device) acetaminophen 500 mg tablet 500 - 1,000 mg PO Q6H PRN fever or 04/18/23 03/03/24 History pain furosemide 20 mg tablet (Lasix) 20 mg PO DAILY #30 tabs 04/20/23 Unknown Rx amlodipine 2.5 mg tablet 2.5 mg PO DAILY HTN #90 tabs 09/23/23 03/03/24 Rx blood sugar diagnostic (OneTouch #100 ea 09/23/23 Unknown Rx Verio test strips) levothyroxine 200 mcg tablet 200 mcg PO DAILY hypothyroidism 09/23/23 03/03/24 Rx #90 tabs fluoxetine 40 mg capsule 40 mg PO DAILY depression 03/11/24 Unknown History omeprazole 40 mg capsule,delayed 40 mg PO DAILY GERD 03/11/24 Unknown History release dulaglutide 3 mg/0.5 mL 3 mg (0.5 mL) subcut QWEEK DM #2 mL 03/12/24 Unknown Rx subcutaneous pen injector (Trulicity) insulin regular hum U-500 conc 500 100 unit (0.2 mL) subcut TID DM 03/12/24 Unknown Rx unit/mL(3 mL) subcut pen (Humulin #18 mL R U-500 (Conc) Insulin Kwikpen) metformin 500 mg tablet 1,000 mg (2 x 500 mg) PO BID DM 03/12/24 Unknown Rx #360 tabs Allergy/AdvReac Type Severity Reaction Status Date / Time codeine Allergy Angioedema Verified 04/03/24 11:07 nitrofurantoin Allergy edema Verified 04/03/24 11:07 Penicillins Allergy Rash Verified 04/03/24 11:07 Sulfa (Sulfonamide Allergy Rash Verified 04/03/24 11:07 Antibiotics) sulfamethoxazole (Bactrim) Allergy Unknown Verified 04/03/24 11:07 trimethoprim (Bactrim) Allergy Unknown Verified 04/03/24 11:07 Family History Other Cancer Surgical History Hx of cholecystectomy Social History household members: none housing: apartment pets and animals: No Smoking Status: Former smoker alcohol intake: current alcohol intake frequency: a few times a month Alcohol type: hard liquor substance use type: does not use caffeine: Yes Type: tea Review of Systems (Anesthesia) ROS Narrative System reviewed and no additional complaints, except as documented.
--- NOTE | 2024-04-04 14:06 | CON.PCM.GI_ITS ---
HPI Consult Data Date of Consult: 04/04/24 HPI Narrative Reason for Consultation: Anemia HPI Narrative: LEROY TYLER, is a 58 F who presents to the hospital with fatigue, shortness of breath as well as dark stools for the last 3 to 4 days. She has been feeling short of breath and fatigued for about the last week. She does state that she has a history of colitis but that she is managed by her PCP as an outpatient, she is unsure when the last time she had a colonoscopy is. She denies any hematemesis. In the ER she was found to have a hemoglobin of 7 today, prior to that her hemoglobin was 11.2 less than a month ago. Hemoccult in the ER was positive and she was given a dose of Protonix. I was consulted for new onset anemia. She does take a lot of NSAIDs. [facility] Medical History Cirrhosis Irritability History of alcoholism Fatigue Dysuria Dry mouth Dry eyes Dizziness Difficulty urinating Colon polyps Bladder wall thickening Allergies Acute bronchitis, unspecified Hyperkalemia Noncompliance with medication regimen Depression Hypothyroid History of frequent headaches Back pain Bloody stool Thyroid disease Anemia Diabetes Arthritis Morbid obesity Hyperlipidemia Hypothyroidism Hypertension Home Medications ?Medication ?Instructions ?Recorded ?Last Taken ?Type albuterol sulfate 2.5 mg/3 mL 2.5 mg inhalation Q4H PRN PRN Sob 04/11/18 04/17/23 History (0.083 %) solution for nebulization &/Or Wheezing atorvastatin 20 mg tablet 20 mg PO QHS CHOLESTEROL 10/06/19 03/02/24 History blood-glucose meter,continuous #1 ea 02/18/23 Unknown Rx (Dexcom G7 Biological Plant Operator) blood-glucose sensor (Dexcom G7 #3 ea 02/18/23 Unknown Rx Sensor device) acetaminophen 500 mg tablet 500 - 1,000 mg PO Q6H PRN fever or 04/18/23 03/03/24 History pain furosemide 20 mg tablet (Lasix) 20 mg PO DAILY #30 tabs 04/20/23 Unknown Rx amlodipine 2.5 mg tablet 2.5 mg PO DAILY HTN #90 tabs 09/23/23 03/03/24 Rx blood sugar diagnostic (OneTouch #100 ea 09/23/23 Unknown Rx Verio test strips) levothyroxine 200 mcg tablet 200 mcg PO DAILY hypothyroidism 09/23/23 03/03/24 Rx #90 tabs fluoxetine 40 mg capsule 40 mg PO DAILY depression 03/11/24 Unknown History omeprazole 40 mg capsule,delayed 40 mg PO DAILY GERD 03/11/24 Unknown History release dulaglutide 3 mg/0.5 mL 3 mg (0.5 mL) subcut QWEEK DM #2 mL 03/12/24 Unknown Rx subcutaneous pen injector (Trulicity) insulin regular hum U-500 conc 500 100 unit (0.2 mL) subcut TID DM 03/12/24 Unknown Rx unit/mL(3 mL) subcut pen (Humulin #18 mL R U-500 (Conc) Insulin Kwikpen) metformin 500 mg tablet 1,000 mg (2 x 500 mg) PO BID DM 03/12/24 Unknown Rx #360 tabs Allergy/AdvReac Type Severity Reaction Status Date / Time codeine Allergy Angioedema Verified 04/03/24 11:07 nitrofurantoin Allergy edema Verified 04/03/24 11:07 Penicillins Allergy Rash Verified 04/03/24 11:07 Sulfa (Sulfonamide Allergy Rash Verified 04/03/24 11:07 Antibiotics) sulfamethoxazole (Bactrim) Allergy Unknown Verified 04/03/24 11:07 trimethoprim (Bactrim) Allergy Unknown Verified 04/03/24 11:07 Family History Other Cancer Surgical History Hx of cholecystectomy Social History household members: none housing: apartment pets and animals: No Smoking Status: Former smoker alcohol intake: current alcohol intake frequency: a few times a month Alcohol type: hard liquor substance use type: does not use caffeine: Yes Type: tea ROS Constitutional Constitutional: Reports chills, fatigue and weakness; Denies fever(s) or malaise Eyes Eyes: Denies blurry vision ENT HEENT: Denies headache(s) or nasal discharge Cardiovascular Cardiovascular: Denies chest pain, dyspnea on exertion or syncope Respiratory/Chest Respiratory/Chest: Reports shortness of breath at rest; Denies cough or shortness of breath with exertion Gastrointestinal Gastrointestinal: Denies constipation, diarrhea, nausea or vomiting Genitourinary Genitourinary: Denies dysuria Neurologic Neurologic: Denies focal weakness, numbness or tremor(s) Psychiatric Psychiatric: Denies anxiety or depression Physical Exam Narrative General: Alert, Oriented x3, Cooperative, No apparent distress, morbidly obese HEENT: Atraumatic, PERRLA, EOMI, Normocephalic Oral: Moist Mucosa Neck: Supple, No JVD Lungs: Diminished, Normal air movement, No rhonchi, No wheeze, No rales Cardiovascular: Regular rate, Regular Rhythm, Normal S1, Normal S2, No murmurs Abdomen: Soft, Non Tender, Non-Distended, No Hepato-splenomegaly Extremities: Trace edema, Capillary Refill Less than 3 Seconds Skin: No rashes, No breakdown Musculoskeletal: No Tenderness to Palpation of Joints or Extremities Neurological: No focal neurological deficits, Motor Exam 5/5 strength throughout, Sensory exam intact to light touch and pain Psych/Mental Status: Flat Lab / Micro Data 04/04/24 04:15 04/04/24 04:15 Labs: Laboratory Results - last 24 hr 04/03/24 12:36: B-Natriuretic Peptide 45.5 04/03/24 14:59: Urine Color Yellow, Urine Clarity Cloudy, Urine pH 6.5, Ur Specific [place] 1.010, Urine Protein 30 H, Urine Glucose (UA) Normal, Urine Ketones Negative, Urine Occult Blood 250 H, Urine Nitrite Negative, Urine Bilirubin Negative, Urine Urobilinogen 4 H, Ur Leukocyte Esterase 500 H, Urine RBC 25-50 SEEN, Urine WBC 50-100 SEEN, Ur Squamous Epith Cells 5-10 SEEN, Urine Bacteria RARE, Urine Mucus 0 SEEN 04/03/24 17:12: Hgb 6.8 L, Hct 23.1 L 04/03/24 20:44: Blood Type O NEGATIVE, Antibody Screen NEGATIVE, Crossmatch See Detail 04/03/24 21:03: POC Glucose 184 H 04/04/24 04:15: WBC 7.4, RBC 2.77 L, Hgb 7.5 L, Hct 25.0 L, MCV 90.3, MCH 27.1, MCHC 30.0 L, RDW Std Deviation 57.4 H, RDW Coeff of [place] 18.6 H, Plt Count 211, MPV 10.1, Neut % (Auto) Not Reportable, Absolute Neuts (auto) 5.9, Absolute Lymphs (auto) 1.26, Total Counted 100, Neutrophils % (Manual) 53, Band Neutrophils % 27 H, Lymphocytes % (Manual) 17 L, Monocytes % (Manual) 3, Differential Comment SCANNED, Plt Morphology Comment LARGE, Sodium 136, Potassium 4.1, Chloride 104, Carbon Dioxide 28.0, Anion Gap 4 L, BUN 15, Creatinine 0.63, Estim Creat Clear Calc 113.97, Est GFR (MDRD) Af Amer 125, Est GFR (MDRD) Non-Af 103, BUN/Creatinine Ratio 23.7 H, Glucose 217 H, Calcium 8.8 04/04/24 06:43: POC Glucose 214 H 04/04/24 12:06: POC Glucose 199 H Micro: Microbiology 04/03/24 17:00 Stool Stool Occult Blood (SHAHEEN) - Final Occult Blood Positive 04/03/24 12:36 Mucosa - Nose SARS-CoV-2, Influenza & RSV (PCR) - Final Imaging Radiology Impression Venous Doppler Study 04/03/24 11:28 Interpretation Summary Deep veins of the right lower extremity are patent and compressible segmentally. There is no evidence of right lower extremity deep vein thrombosis. Valvular competence appears intact within the proximal deep venous system on the right . The right great saphenous vein appears patent and compressible segmentally. Ordering Physician: Isidro Lewis Referring Physician: Vero Ortez Performed By: Kiana Bal, RDCS, RVT Abdomen/Pelvis CT 04/03/24 13:30 IMPRESSION: 1. Previously noted stone in the proximal left ureter is not seen on today''s exam. 2. Small nonobstructing stones in the left kidney without evidence of hydronephrosis. 3. Hepatosplenomegaly. Electronically Signed: River Segovia MD at 14:14 EDT , Assessment & Plan Assessment/Plan (1) Acute GI bleeding: PLAN: Plan 58-year-old with diabetes mellitus, hypothyroidism, obesity who presents with worsening fatigue and weakness Acute blood loss anemia secondary to GI bleed/GERD ? She is dropped about 4 g in less than a month ? Hemoccult is positive ? Continue with twice daily PPI ? NPO ? She will undergo an EGD and possible colonoscopy given her history of colitis She was explained alternatives, risk, benefits including not withstanding bleeding, infection, sepsis, perforation, need for emergent urgent . She will have an ASA of 3. Charges/Coding Visit Charges Inpatient E&M: 91934 Init Hosp L3
--- NOTE | 2024-04-04 14:20 | EGD_PTH ---
PATIENT: LEROY TYLER LOC: [facility] U#:[id number] AGE/SX: 58/F ROOM: [facility] [place]04/03/[address]: Dr. Law Trinh DO : 1965 BED: 1 DIS: 04/07/2024 SPEC #: [id number] RECD: 04/06/24 07:14 STATUS: GURMEET PEREZ #: [id number] NICOL: 04/04/24 14:[address]: Brayan Cast DEPT: SURGICAL PATHOLOGY RECD BY: Callie Blancas ENTERED: 04/06/24 09:43 SP TYPE: EGD BIOPSY [facility] DR: DO Dr. Sergo Shepard MD KRISTA MAST, CRNP Tissues: Gastric mucous membrane Procedures: Surgery Specimen Level IV HEADER OPERATION: EGD, biopsy, hemospray, electrohemostasis PRE-OP DIAGNOSIS: Upper GI bleed TISSUE SUBMITTED: Gastric mass MICROSCOPIC DIAGNOSIS Gastric mass, biopsy: Well differentiated neuroendocrine tumor, WHO grade 1, (2.5cms in greatest dimension) See comment. 04/07/2024 COMMENT Immunohistochemistry ([id number]) supports the above diagnosis. Case has been reviewed in consultation with Dr. Carolina who concurs with the above diagnosis. JOVANNI:ZACKERY MICROSCOPIC DESCRIPTION Slides are reviewed. GROSS DESCRIPTION Received in fixative is one container labeled with the patient's name and designated Gastric mass. The specimen consists of a perry nodular ulcerated nodule measuring 2.5 x 2.5 x 1.5cm. Presumed base is inked. The specimen is serially sectioned and reveal perry solid cut surfaces. Also present in the container are multiple pieces of perry soft tissue mixed with blood clot measuring in aggregate 1.5 x 1.0 x 0.2cm. The entire specimen is submitted in seven cassettes. Cassette 7 contains a detached piece of soft tissue and blood clot. 04/06/2024 TC:0 [facility]:[id number] ADDENDUM ADDENDUM ADDENDUM ADDENDUM ADDENDUM ADDENDUM ADDENDUM ADDENDUM ADDENDUM ADDENDUM ADDENDUM ADDENDUM ADDENDUM ADDENDUM ADDENDUM ADDENDUM ADDENDUM ADDENDUM 06/03/2024 08:31 ADDENDUM 06/03/2024 08:31 ADDENDUM 06/03/2024 08:31 ADDENDUM 06/03/2024 08:31 ADDENDUM 06/03/2024 08:31 This addendum is added to incorporate an outside pathology consultation report. The case was examined at [facility] (#[id number]) and the following diagnosis was rendered. Gastric mass, biopsy: Well differentiated neuroendocrine tumor, WHO grade 2 (2.5cm in greatest dimension). Tumor is present at both lateral margins and at the deep margin. The depth of invasion can not be assessed. No lymphvascular invasion identified. No perineural invasion is identified. Proliferation index as per Ki67 IHC is approximately 7%. Lesion is positive for neuroendocrine markers chromogranin, CD56 and synaptophysin as well as for keratin AE1/AE3 (focal), CK8 and CDX2; and it is negative for CK&, CK8 and CK20. Please see complete above mentioned consultation report in EMR
[2024-04-04] MEDS: Epinephrine (1 mg/ml) 1 MG/ML VIAL ×3 (14:31→14:54)
[2024-04-04] MEDS: 0.9% Normal Saline (Pres. free 10 ML Vial ×3 (14:31→14:54)
--- NOTE | 2024-04-04 15:17 | OP.EGD_ITS ---
Patient Name: Marika Montejo Procedure Date: 04/04/2024 1:54 PM Date of : 1965 Age: 58 Procedure: Upper GI endoscopy Indications: Iron deficiency anemia Providers: Brayan Cast DO Medicines: Monitored Anesthesia Care Patient Profile: This is a 58 year old female. Refer to note in patient chart for documentation of history and physical. Patient has symptoms. Complications: No immediate complications. Procedure: Pre-Anesthesia Assessment: - Prior to the procedure, a History and Physical was performed, and patient medications and allergies were reviewed. The patient is competent. The risks and benefits of the procedure and the sedation options and risks were discussed with the patient. All questions were answered and informed consent was obtained. Patient identification and proposed procedure were verified by the physician in the pre-procedure area. Mental Status Examination: alert and oriented. Airway Examination: normal oropharyngeal airway and neck mobility. Respiratory Examination: clear to auscultation. CV Examination: normal. Prophylactic Antibiotics: The patient does not require prophylactic antibiotics. Prior Anticoagulants: The patient has taken no anticoagulant or antiplatelet agents except for NSAID medication. ASA Grade Assessment: II - A patient with mild systemic disease. After reviewing the risks and benefits, the patient was deemed in satisfactory condition to undergo the procedure. The anesthesia plan was to use monitored anesthesia care (MAC). Immediately prior to administration of medications, the patient was re-assessed for adequacy to receive sedatives. The heart rate, respiratory rate, oxygen saturations, blood pressure, adequacy of pulmonary ventilation, and response to care were monitored throughout the procedure. The physical status of the patient was re-assessed after the procedure. After obtaining informed consent, the endoscope was passed under direct vision. Throughout the procedure, the patient's blood pressure, pulse, and oxygen saturations were monitored continuously. The gastroscope was introduced through the mouth, and advanced to the second part of duodenum. The upper GI endoscopy was accomplished without difficulty. The patient tolerated the procedure well. Scope In: 2:15:46 PM Scope Out: 3:09:10 PM Total Procedure Duration Time 0 hours 53 minutes 24 seconds Findings: The examined esophagus was normal. Multiple 10 mm sessile polyps with no bleeding and no stigmata of recent bleeding were found at the gastroesophageal junction, in the cardia, in the gastric body, on the greater curvature of the stomach and on the lesser curvature of the stomach. Biopsies were taken with a cold forceps for histology. Verification of patient identification for the specimen was done. Estimated blood loss was minimal. A single 31 mm pedunculated and sessile polyp with severe bleeding and stigmata of recent bleeding was found in the cardia. Area was successfully injected with 20 mL of a 0.1 mg/mL solution of epinephrine for lesion assessment, and this injection appeared to lift the lesion adequately. Area was tattooed with an injection of 1 mL of Adele ink. The polyp was removed with a saline injection-lift technique using a cold snare at 30 renae. Resection and retrieval were complete using a Suarez net. Two hemostatic clips were successfully placed. No gross lesions were noted in the first portion of the duodenum. Impression: - Normal esophagus. - Multiple gastroesophageal junction polyps. Biopsied. - A severely bleeding single gastric polyp. Resected and retrieved. Injected. Tattooed. Clips were placed. - No gross lesions in the first portion of the duodenum. Recommendation: - Return patient to [facility] for ongoing care. - Clear liquid diet today. - Give Protonix (pantoprazole): initiate therapy with 80 mg IV bolus, then 8 mg/hr IV by continuous infusion. - Continue present medications. Procedure Code(s): --- Professional --- 87077, Esophagogastroduodenoscopy, flexible, transoral; with removal of tumor(s), polyp(s), or other lesion(s) by snare technique 00038, 59, Esophagogastroduodenoscopy, flexible, transoral; with biopsy, single or multiple 01761, 59,51, Esophagogastroduodenoscopy, flexible, transoral; with directed submucosal injection(s), any substance CPT copyright 2021 [employer]. All rights reserved. The codes documented in this report are preliminary and upon import and export clerk review may be revised to meet current compliance requirements. Brayan Cast DO 04/04/2024 3:16:36 PM This report has been signed electronically. Number of Addenda: 0 Note Initiated On: 04/04/2024 1:54 PM
--- NOTE | 2024-04-04 15:18 | OP.CCLET_ITS ---
04/04/2024 Ashlee Lundberg Re : Upper GI endoscopy procedure for Marika Torreskristi Ortez This procedure was performed on Thursday, April 04, 2024. My impressions and recommendations are as follows: Impressions : - Normal esophagus. - Multiple gastroesophageal junction polyps. Biopsied. - A severely bleeding single gastric polyp. Resected and retrieved. Injected. Tattooed. Clips were placed. - No gross lesions in the first portion of the duodenum. Recommendations : - Return patient to [facility] for [facility] care. - Clear liquid diet today. - Give Protonix (pantoprazole): initiate therapy with 80 mg IV bolus, then 8 mg/hr IV by continuous infusion. - Continue present medications. My findings are described in the full procedure note, which is enclosed. If I can be of further assistance, please feel free to contact me at . Sincerely, Brayan Cast, 04/04/2024 3:16:36 PM This report has been signed electronically.
--- NOTE | 2024-04-04 15:24 | PCM.POST.ANE ---
Anesthesia: Postop Eval I Current Vital Signs Temperature: 98.4 F Pulse Rate: 101 Blood Pressure: 116/56 Respiratory Rate: 14 Pulse Ox: 95 Assessment Airway patent: Yes Spontaneous unlabored respirations: Yes nausea: No Vomiting: No Anesthesia Complication: No Fluid Hydration Crystalloid volume administer (ml): 700 Total IV fluid infused: 700 Progress Note Anesthesia document: Postop Eval 1 completed: Yes
--- NOTE | 2024-04-04 15:27 | POSTOPAN2_ITS ---
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
--- NOTE | 2024-04-04 15:27 | PCM.POSTANE2 ---
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 Vomiting No 04/04/24 15:24 CHILD CARE LEAD TEACHER.SHOL Anesthesia Postop Eval I: Fluid Summary Crystalloid volume administer 700 04/04/24 15:24 CHILD CARE LEAD TEACHER.SHOL (ml) Colloids volume administered ( ml) Blood Product volume administered (ml) Total IV fluid infused 700 04/04/24 15:24 CHILD CARE LEAD TEACHER.SHOL Anesthesia Postop Eval I: Summary Notes Anesthesia Complication No 04/04/24 15:24 CHILD CARE LEAD TEACHER.SHOL Anesthesia Complication Comment: Post-operative progress note Anesthesia: Postop Eval II Evaluation Mental status: Awake and Calm Pain Level: 0 nausea: No Vomiting: No
[2024-04-04] MEDS: Pantoprazole Sodium 80 MG in 0.9% Normal Saline (100mL Bag) 80 ML 10 MG CONT INF (16:44)
[2024-04-04] MEDS: Insulin Lispro 100 UNIT/ML INSULN.PEN SC ×2 (16:58→20:45)
[2024-04-04 17:22] LABS: Bedside Glucose 248 mg/dL (74-106)
--- NOTE | 2024-04-04 19:00 | NURSING ---
Emergency documentation still in effect today @ 19:00
[2024-04-04] MEDS: Atorvastatin Calcium 20 MG Tablet PO (20:46)
[2024-04-04 21:17] LABS: Bedside Glucose 186 mg/dL (74-106)
[2024-04-05] MEDS: Pantoprazole Sodium 80 MG in 0.9% Normal Saline (100mL Bag) 80 ML 10 MG CONT INF (01:12)
[2024-04-05 02:32] VITALS: BP 101/66; PULSE 77; RESP 16; TEMP 36.5; O2SAT 95
[2024-04-05] MEDS: Levothyroxine 100 MCG Tablet 200 MCG PO (06:33)
[2024-04-05] MEDS: Insulin Lispro 100 UNIT/ML INSULN.PEN SC ×4 (06:39→20:45)
[2024-04-05 06:50] LABS: Hematocrit 28.5 % (37-47); Hemoglobin 8.5 g/dL (12.0-15.0); Mean Corp Hgb Conc 29.8 g/dL (32-36); Mean Corpuscular Hgb 27.2 pg (27.0-32.0); Mean Corpuscular Volume 91.1 fL (81-99); Mean Platelet Vol. 9.9 fl (6.2-12.0); Platelet Count 213 K/mm3 (150-450); RBC Distribution Width CV 19.4 % (11.6-14.6); RBC Distribution Width SD 61.2 fl (35.1-43.9); Red Blood Count 3.13 M/mm3 (4.2-5.4); White Blood Count 8.1 K/mm3 (4.4-11.0)
[2024-04-05 07:00] LABS: Bedside Glucose 180 mg/dL (74-106)
[2024-04-05 08:05] VITALS: BP 107/53; PULSE 77; RESP 16; TEMP 36; O2SAT 100
[2024-04-05 08:12] VITALS: O2SAT 100
[2024-04-05] MEDS: Fluoxetine HCl 40 MG CAPSULE PO (11:03)
[2024-04-05 11:18] LABS: Bedside Glucose 186 mg/dL (74-106)
--- NOTE | 2024-04-05 11:53 | PN.HOSP_ITS ---
Reason for Visit Reason for Visit: Diagnoses Gastrointestinal hemorrhage, unspecified (04/03/24) Subjective Subjective Saw patient at bedside this morning. Patient was sitting up comfortably in bedside chair, in no acute distress. Patient tolerated EGD without significant issue yesterday. Has not had any bowel movements since yesterday. Denies any significant acid reflux symptoms. No other new concerns today. Objective Data Objective Data Vital Signs: Vital Signs Temp Pulse Resp BP Pulse Ox O2 Del Method O2 Flow Rate 96.8 F L 77 16 107/53 L 100 Nasal Cannula 2 04/05/24 08:05 04/05/24 08:05 04/05/24 08:05 04/05/24 08:05 04/05/24 08:12 04/05/24 08:12 04/05/24 08:12 Oxygen Flow Rate (L/min) 2 Oxygen Delivery Method Nasal Cannula Weight: 111.5 kg Body Mass Index (BMI) 46.4 Intake & Output: Intake and Output for Last 24 Hours 04/03/24 04/04/24 04/05/24 23:59 23:59 23:59 Intake Total 1160 / 1160 111 / 111 84.67 / 84.67 Output Total 0 / 0 Balance 1160 / 1160 111 / 111 84.67 / 84.67 Lab / Micro Data 04/05/24 06:26 04/04/24 04:15 Labs: Laboratory Results - last 24 hr 04/03/24 20:44: Blood Type O NEGATIVE, Antibody Screen NEGATIVE, Crossmatch See Detail 04/04/24 12:06: POC Glucose 199 H 04/04/24 16:56: POC Glucose 248 H 04/04/24 20:43: POC Glucose 186 H 04/05/24 06:26: WBC 8.1, RBC 3.13 L, Hgb 8.5 L, Hct 28.5 L, MCV 91.1, MCH 27.2, MCHC 29.8 L, RDW Std Deviation 61.2 H, RDW Coeff of [place] 19.4 H, Plt Count 213, MPV 9.9 04/05/24 06:38: POC Glucose 180 H 04/05/24 11:00: POC Glucose 186 H Micro: Microbiology 04/03/24 16:26 Urine, Clean Catch Urine Culture - Final Mixed Gram Positive Organisms 04/03/24 17:00 Stool Stool Occult Blood (SHAHENE) - Final Occult Blood Positive 04/03/24 12:36 Mucosa - Nose SARS-CoV-2, Influenza & RSV (PCR) - Final Physical Exam Const alert, oriented x3 and no apparent distress Constitutional Narrative: Pleasant middle-age female, morbidly obese, mildly fatigued appearing, otherwise sitting up comfortably in bed, conversing normally, in no acute distress. Stable. General Appearance: cooperative and comfortable HEENT normocephalic, head/scalp atraumatic, hearing grossly normal bilaterally, nasal mucous membranes and turbinates normal and moist oral mucous membranes Eyes PERRL, EOMs intact bilaterally and conjunctivae normal Neck full ROM Chest inspection of chest normal Resp normal respiratory effort, normal air movement, no use of accessory muscles and clear to auscultation bilaterally Cardio regular rate, regular rhythm, no murmurs and peripheral pulses 2+ throughout GI normal to inspection, nondistended, normoactive bowel sounds, soft to palpation, non-tender and non-distended Back/Spine normal ROM Extremity normal to inspection, full ROM and no pedal edema Skin no rashes or lesions noted Neuro no focal motor deficits and no sensory deficits noted Speech: speech normal Psych mental status grossly normal Assessment & Plan Assessment/Plan (1) Acute GI bleeding: PLAN: Plan Patient is a 58-year-old female who presented to [facility] ED on 04/03/2024 with worsening fatigue and shortness of breath and 3 to 4-day history of dark stools. 1. Acute blood loss anemia secondary to upper GI bleed from gastric polyp ? GI following. Hemoglobin 6.8 on admit, down from baseline of 11-12 in mid February. S/p 1 unit of packed red blood cells with improvement to hemoglobin 7.5. EGD on 04/04 showed multiple GE junction polyps with a severely bleeding single gastric polyp that was injected and clipped. Heavy NSAID use at home likely contributing to presentation. Started on Protonix infusion post EGD and advanced to clear liquid diet. No further dark bowel movements and hemoglobin remaining stable. De-escalated to p.o. PPI twice daily on afternoon of 04/05 and advanced to regular diet. If patient tolerates this without issue, should be stable for discharge tomorrow. Chronic medical conditions: ? Morbid obesity: BMI 46 on admit. Complicates hospital course, care and prognosis. ? Asthma: Stable on room air. Continue home inhalers as needed. ? Type 2 diabetes mellitus: Treating with sliding scale insulin with meals while inpatient, adjust as needed. ? Hypertension: Holding home amlodipine and Lasix for now. ? Hyperlipidemia: Continue home statin. ? Depression: Stable. Continue home fluoxetine. ? Hypothyroidism: Continue home Synthroid. DVT prophylaxis: SCDs CODE STATUS: Full code, verified Expected disposition: Home, 1 to 2 days Total clinical time spent by myself addressing the patient's medical issues, reviewing all the data, and collaborating with patient's care team: 35 minutes. Charges/Coding Visit Charges Inpatient E&M: 73746 Subs Hosp L2
[2024-04-05 14:00] VITALS: PULSE 98; RESP 18; O2SAT 93
[2024-04-05 14:20] VITALS: BP 126/59; PULSE 98; RESP 18; TEMP 36.6; O2SAT 93
[2024-04-05 18:13] LABS: Bedside Glucose 168 mg/dL (74-106)
[2024-04-05 20:39] VITALS: BP 109/45; PULSE 87; RESP 16; TEMP 36.9; O2SAT 97
[2024-04-05] MEDS: Atorvastatin Calcium 20 MG Tablet PO (20:46)
[2024-04-05] MEDS: Pantoprazole Sodium 40 MG Tablet PO (20:46)
[2024-04-05 21:39] LABS: Bedside Glucose 235 mg/dL (74-106)
[2024-04-06] VITALS (10 sets, daily range): BP systolic 104–122; BP diastolic 63–73; PULSE 78–90; RESP 16–18; TEMP 36.2–36.6; O2SAT 87–98; BMI 46.7
[2024-04-06] MEDS: Levothyroxine 100 MCG Tablet 200 MCG PO (06:13)
[2024-04-06] MEDS: Insulin Lispro 100 UNIT/ML INSULN.PEN SC ×4 (06:13→21:53)
[2024-04-06 06:30] LABS: Hematocrit 29.1 % (37-47); Hemoglobin 8.7 g/dL (12.0-15.0); Mean Corp Hgb Conc 29.9 g/dL (32-36); Mean Corpuscular Volume 90.4 fL (81-99); Mean Platelet Vol. 9.6 fl (6.2-12.0); Platelet Count 227 K/mm3 (150-450); Red Blood Count 3.22 M/mm3 (4.2-5.4); White Blood Count 9.4 K/mm3 (4.4-11.0)
[2024-04-06 06:52] LABS: Bedside Glucose 219 mg/dL (74-106)
[2024-04-06 09:24] LABS: Pathologist Review Reviewed
[2024-04-06] MEDS: Pantoprazole Sodium 40 MG Tablet PO ×2 (11:16→21:53)
[2024-04-06] MEDS: 0.9% Saline Lock 10 ML Syringe IV ×2 (11:16→21:55)
[2024-04-06] MEDS: Fluoxetine HCl 40 MG CAPSULE PO (11:16)
[2024-04-06 12:16] LABS: Bedside Glucose 285 mg/dL (74-106)
--- NOTE | 2024-04-06 14:40 | PN.HOSP_ITS ---
Reason for Visit Reason for Visit: Diagnoses Gastrointestinal hemorrhage, unspecified (04/03/24) Subjective Subjective Saw patient at bedside this morning. Patient was sitting up fairly comfortably in bedside chair, in no acute distress. She had just finished breakfast and had a regular diet, and she did states she had mild abdominal pain and discomfort after eating. Spoke with nursing staff this afternoon and she had similar symptoms after lunch as well. She was agreeable to staying in the hospital for another day to ensure that she continues to show improvement with tolerating a regular diet prior to discharge. She otherwise denies any other concerns today. Objective Data Objective Data Vital Signs: Vital Signs Temp Pulse Resp BP Pulse Ox O2 Del Method O2 Flow Rate 97.7 F L 78 16 121/69 H 98 Nasal Cannula 2 04/06/24 11:04/06/24 11:04/06/24 11:09 04/06/24 11:09 04/06/24 11:09 04/06/24 11:09 04/06/24 11:09 Oxygen Flow Rate (L/min) 2 Oxygen Delivery Method Nasal Cannula Weight: 112.173 kg Body Mass Index (BMI) 46.7 Intake & Output: Intake and Output for Last 24 Hours 04/04/24 04/05/24 04/06/24 23:59 23:59 23:59 Intake Total 111 / 111 884.67 / 884.67 Output Total 0 / 0 Balance 111 / 111 884.67 / 884.67 Lab / Micro Data 04/06/24 06:06 04/04/24 04:15 Labs: Laboratory Results - last 24 hr 04/03/24 12:36: Diff Path Review Reviewed 04/05/24 17:49: POC Glucose 168 H 04/05/24 20:45: POC Glucose 235 H 04/06/24 06:06: WBC 9.4, RBC 3.22 L, Hgb 8.7 L, Hct 29.1 L, MCV 90.4, MCH 27.0, MCHC 29.9 L, RDW Std Deviation 61.0 H, RDW Coeff of [place] 19.0 H, Plt Count 227, MPV 9.6 04/06/24 06:12: POC Glucose 219 H 04/06/24 11:18: POC Glucose 285 H Micro: Microbiology 04/03/24 16:26 Urine, Clean Catch Urine Culture - Final Mixed Gram Positive Organisms 04/03/24 17:00 Stool Stool Occult Blood (SHAHEEN) - Final Occult Blood Positive 04/03/24 12:36 Mucosa - Nose SARS-CoV-2, Influenza & RSV (PCR) - Final Physical Exam Const alert, oriented x3 and no apparent distress Constitutional Narrative: Pleasant middle-age female, morbidly obese, energy improved from previous days, otherwise sitting up comfortably in bed, conversing normally, in no acute distress. General Appearance: cooperative and comfortable HEENT normocephalic, head/scalp atraumatic, hearing grossly normal bilaterally, nasal mucous membranes and turbinates normal and moist oral mucous membranes Eyes PERRL, EOMs intact bilaterally and conjunctivae normal Neck full ROM Chest inspection of chest normal Resp normal respiratory effort, normal air movement, no use of accessory muscles and clear to auscultation bilaterally Cardio regular rate, regular rhythm, no murmurs and peripheral pulses 2+ throughout GI normal to inspection, nondistended, normoactive bowel sounds, soft to palpation, non-tender and non-distended Back/Spine normal ROM Extremity normal to inspection, full ROM and no pedal edema Skin no rashes or lesions noted Neuro no focal motor deficits and no sensory deficits noted Speech: speech normal Psych mental status grossly normal Assessment & Plan Assessment/Plan (1) Acute GI bleeding: PLAN: Plan Patient is a 58-year-old female who presented to [facility] ED on 04/03/2024 with worsening fatigue and shortness of breath and 3 to 4-day history of dark stools. 1. Acute blood loss anemia secondary to upper GI bleed from gastric polyp ? GI following. Hemoglobin 6.8 on admit, down from baseline of 11-12 in mid February. S/p 1 unit of packed red blood cells with improvement to hemoglobin 7.5. EGD on 04/04 showed multiple GE junction polyps with a severely bleeding single gastric polyp that was injected and clipped. Heavy NSAID use at home likely contributing to presentation. Started on Protonix infusion post EGD and advanced to clear liquid diet. No further dark bowel movements and hemoglobin remaining stable. De-escalated to p.o. PPI twice daily on afternoon of 04/05 and advanced to regular diet. She did report some abdominal discomfort with both breakfast and lunch on 04/06, will continue to monitor for another day and if improved tomorrow, will plan for discharge home. Chronic medical conditions: ? Morbid obesity: BMI 46 on admit. Complicates hospital course, care and prognosis. ? Asthma: Stable on room air. Continue home inhalers as needed. ? Type 2 diabetes mellitus: Treating with sliding scale insulin with meals while inpatient, adjust as needed. ? Hypertension: Holding home amlodipine and Lasix for now. ? Hyperlipidemia: Continue home statin. ? Depression: Stable. Continue home fluoxetine. ? Hypothyroidism: Continue home Synthroid. DVT prophylaxis: SCDs CODE STATUS: Full code, verified Expected disposition: Home, 1 to 2 days Total clinical time spent by myself addressing the patient's medical issues, reviewing all the data, and collaborating with patient's care team: 35 minutes. Charges/Coding Visit Charges Inpatient E&M: 01211 Subs Hosp L2
[2024-04-06 17:02] LABS: Bedside Glucose 216 mg/dL (74-106)
[2024-04-06] MEDS: Acetaminophen 325 MG Tablet 650 MG PO (17:41)
--- NOTE | 2024-04-06 18:05 | EX.PCM.PN.GI ---
Subjective Subjective Walking by patient room and patient asked how she was doing. I looked at her labs and told her that far as her lab work she was doing better. Objective Data Objective Data Vital Signs: Vital Signs Temp Pulse Resp BP Pulse Ox O2 Del Method O2 Flow Rate 97.7 F L 90 18 122/68 H 93 Nasal Cannula 2 04/06/24 16:07 04/06/24 16:07 04/06/24 16:07 04/06/24 16:07 04/06/24 16:07 04/06/24 16:07 04/06/24 16:07 Oxygen Flow Rate (L/min) 2 Oxygen Delivery Method Nasal Cannula Weight: 247 lb 4.8 oz Body Mass Index (BMI) 46.7 Intake & Output: Intake and Output for Last 24 Hours 04/04/24 04/05/24 04/06/24 23:59 23:59 23:59 Intake Total 111 / 111 884.67 / 884.67 700 / 700 Output Total 0 / 0 Balance 111 / 111 884.67 / 884.67 700 / 700 Lab / Micro Data 04/06/24 06:06 04/04/24 04:15 Labs: Laboratory Results - last 24 hr 04/03/24 12:36: Diff Path Review Reviewed 04/05/24 17:49: POC Glucose 168 H 04/05/24 20:45: POC Glucose 235 H 04/06/24 06:06: WBC 9.4, RBC 3.22 L, Hgb 8.7 L, Hct 29.1 L, MCV 90.4, MCH 27.0, MCHC 29.9 L, RDW Std Deviation 61.0 H, RDW Coeff of [place] 19.0 H, Plt Count 227, MPV 9.6 04/06/24 06:12: POC Glucose 219 H 04/06/24 11:18: POC Glucose 285 H 04/06/24 16:25: POC Glucose 216 H Micro: Microbiology 04/03/24 16:26 Urine, Clean Catch Urine Culture - Final Mixed Gram Positive Organisms 04/03/24 17:00 Stool Stool Occult Blood (SHAHEEN) - Final Occult Blood Positive 04/03/24 12:36 Mucosa - Nose SARS-CoV-2, Influenza & RSV (PCR) - Final Physical Exam Const alert, oriented x3 and no apparent distress General Appearance: cooperative and comfortable HEENT normocephalic, head/scalp atraumatic, hearing grossly normal bilaterally, nasal mucous membranes and turbinates normal and moist oral mucous membranes Eyes PERRL, EOMs intact bilaterally and conjunctivae normal Neck full ROM Chest inspection of chest normal Resp normal respiratory effort, normal air movement, no use of accessory muscles and clear to auscultation bilaterally Cardio regular rate, regular rhythm, no murmurs and peripheral pulses 2+ throughout GI normal to inspection, nondistended, normoactive bowel sounds, soft to palpation, non-tender and non-distended Back/Spine normal ROM Extremity normal to inspection, full ROM and no pedal edema Skin no rashes or lesions noted Neuro no focal motor deficits and no sensory deficits noted Speech: speech normal Psych mental status grossly normal Assessment & Plan Assessment/Plan (1) Acute GI bleeding: PLAN: Plan 58-year-old with diabetes mellitus, hypothyroidism, obesity who presents with worsening fatigue and weakness Acute blood loss anemia secondary to GI bleed/GERD ? She is dropped about 4 g in less than a month ? Hemoccult is positive ? Continue with twice daily PPI ? NPO ? She will undergo an EGD and possible colonoscopy given her history of colitis 04/06/2024-patient's hemoglobin seems to be stable. She has very large gastric polyps that are still in the stomach that we will likely also bleed in the future will need to be removed. She will need to be on PPI therapy twice daily and Carafate twice daily and have repeat endoscopy in the future. Awaiting pathology from her polyp that was removed. , I still suspect this hyperplastic polyp rather than a GIST,adenocarcinoma or carcinoid tumor. Charges/Coding Visit Charges Inpatient E&M: 82151 Subs Hosp L3
[2024-04-06] MEDS: Atorvastatin Calcium 20 MG Tablet PO (21:53)
[2024-04-06 23:02] LABS: Bedside Glucose 252 mg/dL (74-106)
[2024-04-07 03:21] VITALS: BP 115/72; PULSE 75; RESP 16; TEMP 36; O2SAT 94
[2024-04-07] MEDS: Acetaminophen 325 MG Tablet 650 MG PO (03:28)
[2024-04-07 05:00] VITALS: BMI 45.8
[2024-04-07] MEDS: Levothyroxine 100 MCG Tablet 200 MCG PO (06:20)
[2024-04-07] MEDS: Insulin Lispro 100 UNIT/ML INSULN.PEN SC ×2 (06:21→11:54)
[2024-04-07 06:48] LABS: Bedside Glucose 237 mg/dL (74-106)
[2024-04-07 07:49] VITALS: O2SAT 94
[2024-04-07 09:20] VITALS: BP 114/58; PULSE 74; RESP 18; TEMP 36.3; O2SAT 92
[2024-04-07] MEDS: Sucralfate 1 GM Tablet PO (09:40)
[2024-04-07] MEDS: Fluoxetine HCl 40 MG CAPSULE PO (09:40)
[2024-04-07] MEDS: Pantoprazole Sodium 40 MG Tablet PO (09:40)
[2024-04-07 11:12] VITALS: O2SAT 86; O2SAT 93; O2SAT 94
--- NOTE | 2024-04-07 11:27 | PCM.DC.SUM ---
Providers Date of Admission: 04/03/24 Date of Discharge: 04/07/24 Primary Care Physician: DARLING KWAN Consultations 04/03/24 18:28 Consult: Gastroenterology Routine Consulting Provider: [facility] Reason for Consult: GI bleed with h/o colitis EMERGENT Consult: No MD Notified: Yes Date Notified: 04/03/24 Time Notified: 18:42 Method of Notification: Text Reason For Visit: DYSPNEA ON EXERTION, TACHYCARDIA Diagnosis Discharge Diagnosis (1) Acute GI bleeding: Status: Acute Code(s): K92.2 - Gastrointestinal hemorrhage, unspecified Medications at Discharge Home Medications albuterol sulfate 2.5 mg/3 mL (0.083 %) solution for nebulization 2.5 mg inhalation Q4H PRN PRN Sob &/Or Wheezing 04/11/18 atorvastatin 20 mg tablet 20 mg PO QHS CHOLESTEROL 10/06/19 blood-glucose meter,continuous (Dexcom G7 Manager Sas) #1 ea 02/18/23 blood-glucose sensor (Dexcom G7 Sensor device) #3 ea 02/18/23 acetaminophen 500 mg tablet 500 - 1,000 mg PO Q6H PRN fever or pain 04/18/23 blood sugar diagnostic ([employer] Verio test strips) #100 ea 09/23/23 levothyroxine 200 mcg tablet 200 mcg PO DAILY hypothyroidism #90 tabs 09/23/23 fluoxetine 40 mg capsule 40 mg PO DAILY depression 03/11/24 dulaglutide 3 mg/0.5 mL subcutaneous pen injector (Trulicity) 3 mg (0.5 mL) subcut QWEEK DM #2 mL 03/12/24 insulin regular hum U-500 conc 500 unit/mL(3 mL) subcut pen (Humulin R U-500 (Conc) Insulin Kwikpen) 100 unit (0.2 mL) subcut TID DM #18 mL 03/12/24 metformin 500 mg tablet 1,000 mg (2 x 500 mg) PO BID DM #360 tabs 03/12/24 pantoprazole 40 mg tablet,delayed release 40 mg PO BID 30 days #60 tabs 04/07/24 sucralfate 1 gram tablet 1 g PO 1HR_ACHS 14 days #42 tabs 04/07/24 Hospital Course Operations None Procedures EKG and - (CTA chest, CT abdomen pelvis, venous Doppler study) Summary of Care Provided Minutes Spent on Discharge: 35 Hospital Course: Patient is a 58-year-old female who presented to [facility] ED on 04/03/2024 with worsening fatigue and shortness of breath and 3 to 4-day history of dark stools. Hospital course as noted below. Patient discharged home in stable condition on 04/07. 1. Acute blood loss anemia secondary to upper GI bleed from gastric polyp ? GI followed. Hemoglobin 6.8 on admit, down from baseline of 11-12 in mid February. S/p 1 unit of packed red blood cells with improvement to hemoglobin 7.5. EGD on 04/04 showed multiple GE junction polyps with a severely bleeding single gastric polyp that was injected and clipped. Heavy NSAID use at home likely contributing to presentation. Started on Protonix infusion post EGD and advanced to clear liquid diet. No further dark bowel movements and hemoglobin remaining stable. De-escalated to p.o. PPI twice daily on afternoon of 04/05. Carafate with meals started and patient advance to regular diet on 04/06. Patient tolerating regular diet well on 04/07, stable for discharge home. Per GI, continue p.o. PPI twice daily for 30 days then de-escalate to once daily. Continue Carafate with meals for 2 weeks. Outpatient follow-up with GI in the next several weeks and will need repeat scope to confirm resolution. 2. Suspected mild chronic hypoxia with ambulation ? Patient was intermittently on supplemental oxygen during hospitalization. CTA chest on admit showed no PE, was otherwise unremarkable. Patient had no respiratory complaints during the hospitalization. However, patient completed O2 ambulatory test on day of discharge and her oxygen saturations dropped to 86% on room air with ambulation, so she did qualify for oxygen with ambulation. Sats remained stable in the mid 90s at rest. Suspect patient's morbid obesity and history of asthma may be contributing to this. Supplemental oxygen supplied for patient on discharge. Chronic medical conditions: ? Morbid obesity: BMI 46 on admit. Complicated hospital course, care and prognosis. ? Asthma: Stable on room air. Continue home inhalers as needed. ? Type 2 diabetes mellitus: Treated with sliding scale insulin with meals while inpatient. Okay to resume home regimen on discharge. ? Hypertension: Continue home amlodipine on discharge. ? Hyperlipidemia: Continue home statin. ? Depression: Stable. Continue home fluoxetine. ? Hypothyroidism: Continue home Synthroid. Total clinical time spent by myself addressing the patient's medical issues, reviewing all the data, and collaborating with patient's care team: 35 minutes. Physical Exam Const alert, oriented x3 and no apparent distress Constitutional Narrative: Pleasant middle-age female, morbidly obese, energy improved from previous days, otherwise sitting up comfortably in bed, conversing normally, in no acute distress. Stable. General Appearance: cooperative and comfortable HEENT normocephalic, head/scalp atraumatic, hearing grossly normal bilaterally, nasal mucous membranes and turbinates normal and moist oral mucous membranes Eyes PERRL, EOMs intact bilaterally and conjunctivae normal Neck full ROM Chest inspection of chest normal Resp normal respiratory effort, normal air movement, no use of accessory muscles and clear to auscultation bilaterally Cardio regular rate, regular rhythm, no murmurs and peripheral pulses 2+ throughout GI normal to inspection, nondistended, normoactive bowel sounds, soft to palpation, non-tender and non-distended Back/Spine normal ROM Extremity normal to inspection, full ROM and no pedal edema Skin no rashes or lesions noted Neuro no focal motor deficits and no sensory deficits noted Speech: speech normal Psych mental status grossly normal Weight / BMI Weight Weight: 109.9 kg Body Mass Index (BMI) 45.8 ABG / Lab / Microbiology Data 04/06/24 06:06 04/04/24 04:15 Laboratory: Laboratory Results - last 24 hr 04/06/24 11:18: POC Glucose 285 H 04/06/24 16:25: POC Glucose 216 H 04/06/24 21:51: POC Glucose 252 H 04/07/24 06:17: POC Glucose 237 H Microbiology: Microbiology 04/03/24 16:26 Urine, Clean Catch Urine Culture - Final Mixed Gram Positive Organisms 04/03/24 17:00 Stool Stool Occult Blood (SHAHEEN) - Final Occult Blood Positive 04/03/24 12:36 Mucosa - Nose SARS-CoV-2, Influenza & RSV (PCR) - Final Meaningful Use Info Meaningful Use Meaningful Use Diagnoses (Choose all that apply): None applicable Ischemic Stroke Statin Dosing Therapy Reference: STATIN DOSE THERAPY REFERENCE: * Patients > 75 years receive moderate or high dose statin therapy. * Patients 75 years or YOUNGER should receive HIGH intensity statin dose unless contraindicated. You will be required to document reason for non-treatment if statin daily dose does not meet guidelines. HIGH DOSE STATIN THERAPY DAILY Atorvastatin > than or = to 40 mg Rosuvastatin > than or = to 20 mg Amlodipine + Atorvastatin > than or = to 2.5/40 mg Ezetimibe + Simvastatin 10/80 mg Simvastatin 80mg Discharge Plan Admission Admit Date/Time: 04/03/24 17:05 Primary Reason for Your Visit: GI bleed with shortness of breath Attending Provider: Law Trinh Primary Care Provider: OLU ORTIZ Consulting Providers: Sergo Bustillos Instructions Additional Instructions / Restrictions: Please take pantoprazole twice daily for the next 30 days, then go down to taking once daily going forward. Please take sucralfate 1 tablet before each meal for the next 2 weeks to coat your stomach before meals. Please wear 2 L nasal cannula of oxygen with walking around going forward. Follow-up with your primary care doctor as needed. Dr. Cast's office will schedule follow up for you after discharge. Discharge Orders/Prescriptions Prescriptions: New sucralfate 1 gram Tablet 1 g PO 1HR_ACHS 14 Days Qty: 42 0RF pantoprazole 40 mg Tablet,Delayed Release (Dr/Ec) 40 mg PO BID 30 Days Qty: 60 2RF Continued albuterol sulfate 2.5 mg /3 mL (0.083 %) solution for nebulization 2.5 mg INHALATION Q4H PRN PRN (Reason: Sob &/Or Wheezing) (DME) Dexcom G7 Sensor Device See Rx Instructions .Route Qty: 3 5RF Rx Instructions: 1 sensor q 10 days ([facility] [place] Dexcom G7 Manager Sas Misc See Rx Instructions .Route Qty: 1 0RF Rx Instructions: As directed ([facility] [place]) OneTouch Verio test strips Strip See Rx Instructions .Route Qty: 100 5RF Rx Instructions: 4x/day levothyroxine 200 mcg tablet 200 mcg PO DAILY Qty: 90 1RF Trulicity 3 mg/0.5 mL pen injector 3 mg subcut QWEEK Qty: 2 5RF Humulin R U-500 (Conc) Kwikpen 500 unit/mL (3 mL) insulin pen 100 unit subcut TID Qty: 18 5RF Rx Instructions: Increase by 10u/meal if glucose >[address] Cervantes's office, hold if glucose <100. metformin 500 mg tablet 1,000 mg PO BID Qty: 360 1RF fluoxetine 40 mg capsule 40 mg PO DAILY atorvastatin 20 MG tablet 20 mg PO QHS acetaminophen 500 mg tablet 500 - 1,000 mg PO Q6H PRN (Reason: fever or pain) Discontinued amlodipine 2.5 mg tablet 2.5 mg PO DAILY Qty: 90 1RF omeprazole 40 mg capsule,delayed release(DR/EC) 40 mg PO DAILY furosemide [Lasix] 20 mg tablet 20 mg PO DAILY Qty: 30 0RF Referrals / Follow Up: OLU ORTIZ CRNP [Primary Care Provider] - 04/13/24 1:00 pm Disposition Disposition (needs filled in before D/C Order can be placed): Home, Self Care Charges/Coding Visit Charges Inpatient E&M: 49628 Subs Hosp L2
[2024-04-07 12:12] LABS: Bedside Glucose 222 mg/dL (74-106)
--- NOTE | 2024-04-07 13:57 | CASEMGMT ---
Patient asked about help with disability. ANTHONY told patient ANTHONY can bring patient information on applying for disability as this would be through Social Security. Patient asked if that is short term disability. ANTHONY told her short term disability would go through her employer. Patient thanked ANTHONY. Cony LACKEY
--- NOTE | 2024-04-07 14:10 | PCM.HOSP.N ---
Hospitalist Note I have reviewed the oxygen testing, and this patient qualifies for the home equipment and portability. The patient is mobile in the home and the community.
[2024-04-07 14:20] VITALS: BP 115/64; PULSE 89; RESP 16; TEMP 36.6; O2SAT 91
--- NOTE | 2024-04-07 14:44 | CASEMGMT ---
Patient has order for discharge. Patient qualifies for home oxygen at discharge. Script received. Patient prefers [employer]. Referral sent to [employer] via [employer], portable tank provided from [employer]. ALFONZO WHATLEY in to discuss needs at discharge. AFLONZO WHATLEY updated patient regarding oxygen setup. Patient states she will continue with patient link. Patient concerned regarding working and wearing oxygen. ALFONZO WHATLEY encouraged patient to talk with employer and PCP, patient voiced understanding. Patient had no further questions or concerns.
--- NOTE | 2024-04-07 15:56 | CHAPLAIN ---
Type of Pastoral Visit _x__ Initial Visit ___ Follow-up Visit ___ On-call Visit ___ General Patient Visit ___ Spiritual Assessment ___ Family Conference ___ Bereavement ___ Rapid Response ___ Code Blue ___ Other (describe below) Pastoral Care Referral From _x__ Patient ___ Family ___ Nurse ___ Physician ___ [employer] Systems Programmer ___ County Director ___ Other (describe below) Sacrament/Intervention _x__ Active listening ___ Anointing ___ Jehovah'S Witness ___ Bereavement ___ Communion _x__ Gauri exploration ___ _x__ Life review _x__ Prayer ___ Reconciliation ___ Sacrament of Sick _x__ Supportive presence ___ Wedding ___ Other (describe below) Pastoral Comments patient is to be discharged soon; pt is quick to acknowledge that she has some significant changes coming to her life; pt is going home with O2 and realizes that she will not be able to work in her current job with this; pt has financial concerns and is anxious about her adjustments; pt is a person of gauri and talks about her need for prayer; pt states that she has some friends and her religious that are helpful but is reluctant to keep asking for help because it is not all about me; lots of listening and affirmation given; prayer given
== END 2024-04-07 15:28 | disposition home or self-care (01) | DRG 253 ==
LOC: ED 12:35 → PCU 17:17
PROVIDERS: Internal Medicine Gastroenterology; Admitting Provider Family Medicine; Emergency Provider Emergency Medicine; PCP Nurse Practitioner Adult Health; Visit Provider Hospitalist
PROC: 0DJ08ZZ Inspection of Upper Intestinal Tract, Via Natural or Artificial Opening Endoscopic (ICD-10-PCS; CPT 43235; principal; 2024-04-04 14:15)
DX: K92.2 Gastrointestinal hemorrhage, unspecified (principal); E03.9 Hypothyroidism, unspecified; E11.9 Type 2 diabetes mellitus without complications; E66.01 Morbid (severe) obesity due to excess calories; F32.A Depression, unspecified; I10 Essential (primary) hypertension; J45.909 Unspecified asthma, uncomplicated; Z68.42 Body mass index [BMI] 45.0-49.9, adult; D62 Acute posthemorrhagic anemia; K31.7 Polyp of stomach and duodenum; Z79.4 Long term (current) use of insulin; E78.5 Hyperlipidemia, unspecified; R09.02 Hypoxemia; Z87.891 Personal history of nicotine dependence; Z79.51 Long term (current) use of inhaled steroids; Z79.899 Other long term (current) drug therapy
CPT/HCPCS: 36415; 71275; 74177; 80048; 80053; 81001; 82274; 82962; 83690; 83880; 84484; 85014; 85018; 85025; 85027; 86850; 86900; 86901; 86920; 86922; 87086; 87088; 87631; 88305; 88341; 88342; 90656; 93005; 93971; 99284; J7030; J7040; P9016; Q9967; A4216; A4648; J3490

== ENCOUNTER → 2024-05-09 | Outpatient (CLI) | payer MEDICAID, SELFPAY ==
[2024-05-09 11:21] LABS: Prothrombin Time (Protime)PT. 13.4 SECONDS (11.7-14.9)
[2024-05-09 11:30] LABS: Hemoglobin A1c 7.2 % (3.8-5.6)
[2024-05-09 11:35] LABS: Absolute Neutrophil Count 5.4 X10^3/uL (2.0-7.7); Basophil# 0.08 X10^3/uL; Basophil% 0.9 % (0-1); Eosinophils% 3.3 % (0-5); Hematocrit 37.6 % (37-47); Hemoglobin 11.2 g/dL (12.0-15.0); Lymphocyte % 30.9 % (19-41); Mean Corp Hgb Conc 29.8 g/dL (32-36); Mean Corpuscular Hgb 24.8 pg (27.0-32.0); Mean Corpuscular Volume 83.2 fL (81-99); Mean Platelet Vol. 10.2 fl (6.2-12.0); Monocyte% 4.4 % (0-10); NRBC Flagged by Analyzer 0 % (0-5); Neutrophil # 5.37 X10^3/uL (2.7-7.7); Neutrophil % 59.3 % (47-70); Platelet Count 271 K/mm3 (150-450); RBC Distribution Width CV 15.3 % (11.6-14.6); RBC Distribution Width SD 46.5 fl (35.1-43.9); Red Blood Count 4.52 M/mm3 (4.2-5.4); White Blood Count 9.1 K/mm3 (4.4-11.0)
[2024-05-09 11:58] LABS: ALB/GLOB Ratio 0.6 RATIO (0.9-2.4); AST(SGOT) 41 U/L (15-37); Alanine Aminotransfer ALT/SGPT 36 U/L (13-56); Albumin, Serum 3.1 g/dL (3.2-5.0); Alkaline Phosphatase 154 U/L (45-117); Anion Gap 5 (5-15); BUN 22 mg/dL (7-18); BUN/Creat Ratio 25.7 RATIO (10-20); Calcium,Total 9.8 mg/dL (8.5-10.1); Chloride 100 mmol/L (98-107); Cholesterol 181 mg/dL (200); Creatinine, Serum 0.86 mg/dL (0.55-1.02); EST Glomerular Filtration Rate 73 mL/min (>60); Est Glom Filt Rate - Afr Amer 88 mL/min (>60); Ferritin 42 ng/mL (8-252); Globulin 5.6 g/dL (2.2-4.2); Glucose 239 mg/dL (74-106); High Density Lipoprotein 30 mg/dL; Iron 40 ug/dL (50-170); Iron Binding Capacity,Total 346 ug/dL (250-450); LDH 167 U/L (84-246); PERCENT IRON SATURATION 11.6 % (15.0-55.0); Potassium 4.5 mmol/L (3.5-5.1); Protein, Total 8.7 g/dL (6.4-8.2); Sodium Level 135 mmol/L (136-145); T4 Free Direct 0.78 ng/dL (0.76-1.46); Triglycerides 526 mg/dL
[2024-05-11 15:10] LABS: ANTINUCLEAR ANTIBODIES DIRECT Negative (Negative); Anti-Mitochondrial AB <20.0 Units (0.0-20.0)
[2024-05-11 18:12] LABS: HIV - WCH Non-Reactive (Nonreactive); Vitamin D,25 Hydroxy 11.2 ng/mL
[2024-05-14 22:06] LABS: AFP, Tumor Marker < 1.8 ng/mL (0.0-9.2); Albumin 3.2 g/dL (2.9-4.4); Alpha-1-Globulins 0.3 g/dL (0.0-0.4); Alpha-2-Globulins 0.9 g/dL (0.4-1.0); Anti-Smooth Muscle ABS 24 Units (0-19); Ceruloplasmin 34.4 mg/dL (19.0-39.0); Copper, Serum or Plasma 130 ug/dL (80-158); Endomysial Antibody IgA Negative (Negative); Free Kappa Light Chains 98.4 mg/L (3.3-19.4); Free Lambda Light Chains 61.7 mg/L (5.7-26.3); Gamma Globulin 2.7 g/dL (0.4-1.8); HEPATITIS B SURFACE AG Negative (Negative); Haptoglobin 182 mg/dL (33-346); Hep C Antibodies Non Reactive (Non Reactive); Hepatitis A IgM Antibody Negative (Negative); Hepatitis B Core AB IgM Negative (Negative); Immunoglobulin A < 5 mg/dL (87-352); Immunoglobulin E 4 IU/mL (6-495); Immunoglobulin G 2914 mg/dL (586-1602); Immunoglobulin M 180 mg/dL (26-217); PROEL- TOTAL PROTEIN 8.1 g/dL (6.0-8.5); Perinuclear Ab (P-ANCA) <1:20 titer (Neg:<1:20); t-Transglutaminase IgA <2 U/mL (0-3)
== END | disposition home or self-care (01) ==
LOC: LAB 10:40
PROVIDERS: PCP Nurse Practitioner Adult Health; Referring Provider Internal Medicine; Visit Provider Internal Medicine
DX: R10.84 Generalized abdominal pain (principal); R63.4 Abnormal weight loss; K70.9 Alcoholic liver disease, unspecified; K76.0 Fatty (change of) liver, not elsewhere classified; K92.2 Gastrointestinal hemorrhage, unspecified
CPT/HCPCS: 86225; 86235 ×5; 36415; 80053; 80061; 80074; 82105; 82140; 82248; 82306; 82390; 82525; 82728; 82784; 82785; 83010; 83036; 83516; 83540; 83550; 83615; 83883; 84165; 84439; 84443; 85025; 85610; 86037; 86038; 86140; 86255; 86334; 86703

== ENCOUNTER → 2024-05-29 | Outpatient (CLI) | payer MEDICAID, SELFPAY ==
[2024-05-29 10:31] LABS: Absolute Lymphocyte Count 2.37 X10^3/uL (0.83-4.51); Absolute Neutrophil Count 5.6 X10^3/uL (2.0-7.7); Basophil# 0.06 X10^3/uL; Basophil% 0.7 % (0-1); Eosinophil# 0.24 X10^3/uL; Eosinophils% 2.7 % (0-5); Hematocrit 37.4 % (37-47); Hemoglobin 11.3 g/dL (12.0-15.0); Lymphocyte # 2.37 X10^3/ul (0.83-4.51); Lymphocyte % 26.6 % (19-41); Mean Corp Hgb Conc 30.2 g/dL (32-36); Mean Corpuscular Hgb 23.9 pg (27.0-32.0); Mean Corpuscular Volume 79.1 fL (81-99); Mean Platelet Vol. 9.7 fl (6.2-12.0); Monocyte# 0.58 X10^3/uL; Monocyte% 6.5 % (0-10); NRBC Flagged by Analyzer 0 % (0-5); Neutrophil # 5.59 X10^3/uL (2.7-7.7); Neutrophil % 62.6 % (47-70); Platelet Count 259 K/mm3 (150-450); RBC Distribution Width CV 15.5 % (11.6-14.6); RBC Distribution Width SD 44.1 fl (35.1-43.9); Red Blood Count 4.73 M/mm3 (4.2-5.4); White Blood Count 8.9 K/mm3 (4.4-11.0)
[2024-05-29 10:40] LABS: International Normalized Ratio 1.2; Prothrombin Time (Protime)PT. 15.1 SECONDS (11.7-14.9)
[2024-05-29 11:26] LABS: ALB/GLOB Ratio 0.7 RATIO (0.9-2.4); AST(SGOT) 38 U/L (15-37); Alanine Aminotransfer ALT/SGPT 38 U/L (13-56); Albumin, Serum 3.6 g/dL (3.2-5.0); Alkaline Phosphatase 122 U/L (45-117); Anion Gap 4 (5-15); BUN 17 mg/dL (7-18); BUN/Creat Ratio 19.1 RATIO (10-20); Chloride 99 mmol/L (98-107); Cholesterol 183 mg/dL (200); Creatinine, Serum 0.89 mg/dL (0.55-1.02); EST Glomerular Filtration Rate 69 mL/min (>60); Est Glom Filt Rate - Afr Amer 84 mL/min (>60); Globulin 5.5 g/dL (2.2-4.2); Glucose 160 mg/dL (74-106); High Density Lipoprotein 35 mg/dL; Lipase 38 U/L (13-75); Potassium 4.4 mmol/L (3.5-5.1); Protein, Total 9.1 g/dL (6.4-8.2); Sodium Level 134 mmol/L (136-145); Triglycerides 265 mg/dL; Very Low Density Lipoprotein 53 mg/dL (5-40)
[2024-05-30 14:09] LABS: Anti-Centromere B Ab <0.2 AI (0.0-0.9); Anti-Chromatin <0.2 AI (0.0-0.9); Anti-Jo <0.2 AI (0.0-0.9); Anti-Scleroderma-70 AB <0.2 AI (0.0-0.9); Anti-dsDNA Ab <1 IU/mL (0-9); RNP Ab 0.2 AI (0.0-0.9); SJOGREN'S Anti-SS-A test < 0.2 AI (0.0-0.9); SJOGREN'S Anti-SS-B test < 0.2 AI (0.0-0.9); Smith Ab <0.2 AI (0.0-0.9)
[2024-06-01 17:08] LABS: Deamidated Gliadin IgA 1 units (0-19); Deamidated Gliadin IgG 3 units (0-19); Endomysial Antibody IgA Negative (Negative); Gastrin, Serum 740 pg/mL (0-115); Immunoglobulin A < 5 mg/dL (87-352); t-Transglutaminase IgA <2 U/mL (0-3)
== END | disposition home or self-care (01) ==
PROVIDERS: PCP Nurse Practitioner Adult Health; Referring Provider Internal Medicine; Visit Provider Internal Medicine
DX: K76.0 Fatty (change of) liver, not elsewhere classified (principal); K75.4 Autoimmune hepatitis; K70.9 Alcoholic liver disease, unspecified; K31.84 Gastroparesis; K90.0 Celiac disease; D64.9 Anemia, unspecified
CPT/HCPCS: 36415; 80053; 80061; 82784; 82941; 83516; 83690; 85025; 85610; 86140; 86225; 86235; 86255

== ENCOUNTER → 2024-06-02 | Outpatient (CLI) | payer MEDICAID, SELFPAY ==
[2024-06-04 18:08] LABS: Fats, Neutral Normal (.); Fats, Total Normal (.)
[2024-06-04 22:07] LABS: Pancreatic Elastase, Fecal > 800 (>200)
== END | disposition home or self-care (01) ==
LOC: LABSPEC 15:18
PROVIDERS: PCP Nurse Practitioner Adult Health; Referring Provider Internal Medicine; Visit Provider Internal Medicine
DX: K31.84 Gastroparesis (principal); D64.9 Anemia, unspecified; R10.84 Generalized abdominal pain; R94.5 Abnormal results of liver function studies
CPT/HCPCS: 82653; 82705

== ENCOUNTER → 2024-06-16 | Outpatient (CLI) | payer MEDICAID, SELFPAY ==
--- NOTE | 2024-06-16 11:48 | NM_ITS ---
CLINICAL: 58-year-old female with early satiety and clinical gastroparesis. SEMI-SOLID PHASE 99m Tc SULFUR COLLOID GASTRIC EMPTYING STUDY COMPARISON: CT of the abdomen-pelvis report 04/03/2024 FINDINGS: The patient was administered 1.2 mCi of 99m Tc sulfur colloid mixed with oatmeal and consumed per os. Image acquisitions in the anterior-posterior projections were obtained for 60 minutes. There is prompt visualization of the stomach. There is no gastroesophageal reflux identified. Minimal emptying is defined. The T ? linear fit was extrapolated to be 355.93 minutes, (Normal: 12-56 minutes). NM/Gastric Emptying Study IMPRESSION: 1. ABNORMAL 99m Tc sulfur colloid semi-solid phase (oatmeal) gastric emptying imaging examination. A. There is minimal and severe delayed semi-solid phase gastric emptying compared to normal controls . (Ashleigh et al, J Nucl Med Tech 38: 186, 2010). Electronically Signed: Neil Conti DO at 13:07 EST ,
== END | disposition home or self-care (01) ==
LOC: NM 11:46
PROVIDERS: PCP Nurse Practitioner Adult Health; Referring Provider Internal Medicine; Visit Provider Internal Medicine
DX: R68.81 Early satiety (principal); R10.13 Epigastric pain; R14.2 Eructation; K70.9 Alcoholic liver disease, unspecified; K76.0 Fatty (change of) liver, not elsewhere classified; D64.9 Anemia, unspecified
CPT/HCPCS: 78264; A9541

== ENCOUNTER → 2024-07-24 | Outpatient (CLI) | payer MEDICAID, SELFPAY ==
--- NOTE | 2024-07-24 09:44 | US_ITS ---
STUDY: ABDOMINAL ULTRASOUND - RIGHT UPPER QUADRANT; ELASTOGRAPHY REASON FOR VISIT: Female, 58 years old. Hepatosplenomegaly. NAFL D TECHNIQUE: Ultrasound evaluation of the right upper quadrant was performed with real-time and static hardin-scale imaging. Point quantification shear wave elastography was performed ([employer]). TECHNICAL QUALITY: Adequate. COMPARISON: None. FINDINGS: Liver: The liver is enlarged and measures 20.3 cm. There is a heterogeneous echogenicity of the liver. The bile ducts are within normal limits. There is hepatic color flow. The direction of portal flow is hepatopetal. There is no demonstrated mass lesion. Median liver stiffness measured 9.6 kPa. Gallbladder: The patient is status post cholecystectomy. Common Bile Duct (C.B.D.): The common bile duct measures 5.1 mm. Pancreas: There is increased echogenicity of the pancreas. There is no demonstrated pancreatic mass or cyst. Right Kidney: Normal size of the right kidney. The right kidney measures 12.2 cm x 6.8 cm x 5.2 cm. Normal renal cortex. The right cortex measures 1.4 cm. There is no demonstrated renal mass or cyst. There is no right hydronephrosis. IMPRESSION: 1. Liver stiffness measures 9.6 kPa compatible with F2-F3 (Mild to moderate liver fibrosis) Metavir score. 2. Hepatosplenomegaly. Electronically Signed: Moy Rivera MD at 11:10 EST , STUDY: ABDOMINAL ULTRASOUND - LEFT UPPER QUADRANT REASON FOR EXAM: Female, 58 years old. NAFLD -- Including SPEEN. hepatomegaly, splenomegaly TECHNIQUE: Transabdominal ultrasound was performed with real-time and static hardin scale imaging. TECHNICAL QUALITY: Adequate. COMPARISON: None. FINDINGS: Spleen: There is splenomegaly. The spleen measures 16.8 cm x 6.1 cm x 4.7 cm. US/ABD Limited w/ Elastography IMPRESSION: Splenomegaly. Electronically Signed: Moy Rivera MD at 11:10 EST ,
== END | disposition home or self-care (01) ==
LOC: US 09:40
PROVIDERS: PCP Nurse Practitioner Adult Health; Referring Provider Internal Medicine; Visit Provider Internal Medicine
DX: R10.84 Generalized abdominal pain (principal); K70.9 Alcoholic liver disease, unspecified; K76.0 Fatty (change of) liver, not elsewhere classified; K92.2 Gastrointestinal hemorrhage, unspecified
CPT/HCPCS: 76705; 76981

== ENCOUNTER 2024-07-29 12:24 | Day surgery (SDC) | payer MEDICAID, SELFPAY ==
--- NOTE | 2024-07-28 17:34 | PAT.ANESEVAL ---
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 When Was Last Pacemaker Check QUESTION #4 FULL TEXT: You/Your Family Experience fever (hyperthermia) with Anesthesia Last Oral Intake Last Oral intake: Last Oral Intake NPO since Meds taken in AM with sips of water? Meds patient instructed to take am of surgery PONV PONV - engineering technician parking: PONV - engineering technician parking Female Yes 07/28/24 14:38 HX of Motion Sickness No 07/28/24 14:38 HX of N/V After Surgery No 07/28/24 14:38 Non-Smoker Yes 07/28/24 14:38 Duration of Surgery greater No 07/28/24 14:38 than 60 minutes Number of Risk Factors 2 07/28/24 14:38 PONV Score Moderate Risk 07/28/24 14:38 Height & Weight Height & Weight: Anesthesia: Height & Weight Height 5 ft 1 in 06/08/24 12:59 Respiratory Assessment Respiratory Assessment - engineering technician parking: Respiratory Tract Infection Hx - engineering technician parking Hx Respiratory Tract Infection No 07/28/24 14:38 STOP Sleep Apnea STOP Sleep Apnea - engineering technician parking: STOP Sleep Apnea - engineering technician parking Hx Hypertension Yes: NO MEDS FOR 5 MONTHS 07/28/24 14:38 Hx Sleep Apnea Yes 07/28/24 14:38 CPAP Yes: NO MACHINE CURRENTLY 07/28/24 14:38 BIPAP No 07/28/24 14:38 Do you snore loudly (louder than talking or can be heard Do you often feel tired/ fatigued/ sleepy during daytime? Has anyone observed you stop breathing during sleep? STOP Results Positive 07/28/24 14:38 QUESTION #5 FULL TEXT : Do you snore loudly (louder than talking or can be heard through closed doors)? 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 Specify any problems Hx of Preganancy in last 3 No 07/28/24 14:38 Months Nurse Filling Out Transfusion DSCHRIBER 07/28/24 14:38 & Questions: Date: 07/28/24 07/28/24 14:38 Time: 14:42 07/28/24 14:38 Patient unable to answer at this time (ie. confused, unrespo /Reproduction History /Reproductive History - engineering technician parking: /Reproductive Hx- engineering technician parking Hx Now No 07/28/24 14:38 Gestational Age (in weeks): EDC: Hx Hx Para Hx Section SAB No 07/28/24 14:38 PFSH Medical History (Updated 07/28/24 @ 14:57 by Patricia Johnson) Anxiety Loose, teeth Post-menopausal Insulin dependent diabetes mellitus History of renal disease Uses wheelchair Substance abuse Marijuana use Alcohol use Cirrhosis Fatty liver High cholesterol Chronic headaches Syncope Neuroendocrine carcinoma Dietary restriction History of GI bleed Former smoker CPAP (continuous positive airway pressure) dependence Asthma On home oxygen therapy Shortness of breath on exertion History of edema History of echocardiogram Hypertension Primary malignant neuroendocrine tumor of stomach Left carpal tunnel syndrome Right carpal tunnel syndrome Right wrist pain History of alcoholism Fatigue Hyperkalemia Noncompliance with medication regimen Depression Back pain Bloody stool Thyroid disease Anemia Arthritis Morbid obesity Hyperlipidemia Hypothyroidism Home Medications ?Medication ?Instructions ?Recorded ?Last Taken ?Type albuterol sulfate 2.5 mg/3 mL 2.5 mg inhalation Q4H PRN PRN Sob 04/11/18 04/17/23 History (0.083 %) solution for nebulization &/Or Wheezing blood-glucose meter,continuous #1 ea 02/18/23 Unknown Rx (Dexcom G7 Underwriting Director) blood-glucose sensor (Dexcom G7 #3 ea 02/18/23 Unknown Rx Sensor device) acetaminophen 500 mg tablet 500 - 1,000 mg PO Q6H PRN fever or 04/18/23 03/03/24 History pain blood sugar diagnostic (OneTouch #100 ea 09/23/23 Unknown Rx Verio test strips) levothyroxine 200 mcg tablet 200 mcg PO DAILY hypothyroidism 09/23/23 03/03/24 Rx #90 tabs fluoxetine 40 mg capsule 40 mg PO DAILY depression 03/11/24 Unknown History insulin regular hum U-500 conc 500 100 unit (0.2 mL) subcut TID DM 03/12/24 Unknown Rx unit/mL(3 mL) subcut pen (Humulin #18 mL R U-500 (Conc) Insulin Kwikpen) pantoprazole 40 mg tablet,delayed 40 mg PO BID 30 days #60 tabs 04/07/24 Unknown Rx release sucralfate 1 gram tablet 1 g PO 1HR_ACHS 14 days #42 tabs 04/07/24 Unknown Rx fenofibrate nanocrystallized 48 mg 48 mg PO QHS 1 month #30 tabs 05/09/24 Unknown Rx tablet cholecalciferol (vitamin D3) 1,250 1,250 mcg PO QWEEK 4 weeks #4 tabs 05/12/24 Unknown Rx mcg (50,000 unit) tablet dulaglutide 4.5 mg/0.5 mL 4.5 mg subcut NARVAEZ 07/28/24 07/05/24 History subcutaneous pen injector (Trulicity) Allergy/AdvReac Type Severity Reaction Status Date / Time codeine Allergy Angioedema Verified 07/28/24 14:33 nitrofurantoin Allergy edema Verified 07/28/24 14:33 Penicillins Allergy Rash Verified 07/28/24 14:33 Sulfa (Sulfonamide Allergy Rash Verified 07/28/24 14:33 Antibiotics) sulfamethoxazole (Bactrim) Allergy Unknown Verified 07/28/24 14:33 trimethoprim (Bactrim) Allergy Unknown Verified 07/28/24 14:33 Family History Father Cancer Mother Diabetes Grandfather Heart disease Grandmother CVA (cerebral vascular accident) Surgical History (Updated 07/28/24 @ 14:57 by Patricia Johnson) Hx of dilation and curettage Hx laparoscopic cholecystectomy Hx of colonoscopy History of esophagogastroduodenoscopy (EGD) Social History household members: none housing: apartment pets and animals: No Smoking Status: Former smoker Tobacco: How many years used: 2 alcohol intake: former details: Quit 2000 substance use type: does not use caffeine: Yes Type: tea Audit: Pertinent Findings Pertinent Findings EKG Perinent findings: April 03, 2024. Normal sinus rhythm. Right bundle branch block. Left anterior fascicular block. Echo (EF%) pertinent findings: April 19, 2023. Ejection fraction 60%. No aortic stenosis is noted. Recommendation Anesthesia Recommendation Anesthesia recommendation: OPTIMIZED for anesthesia
[2024-07-29] VITALS (12 sets, daily range): BP systolic 58–119; BP diastolic 41–81; PULSE 64–99; RESP 16–18; TEMP 36.1–36.3; O2SAT 94–100; BMI 44.1
--- NOTE | 2024-07-29 12:40 | PRE.ANES_ITS ---
ASA Classification* ASA Classification ASA Classification: 3 Assessment & Plan Anesthesia* Anesthesia Assessment Anesthesia Assessment: Discussed sedation and/or anesthesia options, risks, benefits, and alternatives with patient/parents/legal guardian/POA. Questions invited. The patient/parents/legal guardian/POA seems to understand and agrees to proceed with anesthesia plan. Reviewed the physical assessment, medical history, allergy history and patient home medications list prior to surgery/procedure/anesthetic and documented any changes. Performed airway and anesthesia risk assessments. Anesthesia Type Anesthesia Type: MAC Anesthesia Focused Assessment* Airway Assessment Mouth opens: >3 cm Mallampati Score: II Focused Labs Anesthesia Preop lab: CBC WBC 8.9 K/mm3 (4.4-11.0) 05/29/24 10:05 RBC 4.73 M/mm3 (4.2-5.4) 05/29/24 10:05 Hgb 11.3 g/dL (12.0-15.0) L 05/29/24 10:05 Hct 37.4 % (37-47) 05/29/24 10:05 Plt Count 259 K/mm3 (150-450) 05/29/24 10:05 CHEMISTRY Potassium 4.4 mmol/L (3.5-5.1) 05/29/24 10:05 Sodium 134 mmol/L (136-145) L 05/29/24 10:05 Magnesium 1.8 mg/dL (1.6-2.6) 03/05/24 05:30 Phosphorus 4.0 mg/dL (2.5-4.9) 04/19/23 05:45 BUN 17 mg/dL (7-18) 05/29/24 10:05 Creatinine 0.89 mg/dL (0.55-1.02) 05/29/24 10:05 Glucose 160 mg/dL (74-106) H 05/29/24 10:05 POC Glucose 222 mg/dL (74-106) H 04/07/24 11:52 TSH 1.460 uIU/mL (0.358-3.740) 05/09/24 10:47 COAG PT 15.1 SECONDS (11.7-14.9) H 05/29/24 10:05 Urine Test Negative Negative 02/09/22 18:15 Pre-Assessment Diagnosis/Proposed Procedure Planned Operative Procedure(s): CSCOPE Anesthesia History 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 When Was Last Pacemaker Check QUESTION #4 FULL TEXT: You/Your Family Experience fever (hyperthermia) with Anesthesia Last Oral Intake Last Oral intake: Last Oral Intake NPO since Meds taken in AM with sips of water? Meds patient instructed to take am of surgery PONV PONV - bridge repair crew person: PONV - bridge repair crew person Female Yes 07/28/24 14:38 HX of Motion Sickness No 07/28/24 14:38 HX of N/V After Surgery No 07/28/24 14:38 Non-Smoker Yes 07/28/24 14:38 Duration of Surgery greater No 07/28/24 14:38 than 60 minutes Number of Risk Factors 2 07/28/24 14:38 PONV Score Moderate Risk 07/28/24 14:38 Height & Weight Height & Weight: Anesthesia: Height & Weight Height 5 ft 1 in 07/28/24 10:20 Respiratory Assessment Respiratory Assessment - bridge repair crew person: Respiratory Tract Infection Hx - bridge repair crew person Hx Respiratory Tract Infection No 07/28/24 14:38 STOP Sleep Apnea STOP Sleep Apnea - bridge repair crew person: STOP Sleep Apnea - bridge repair crew person Hx Hypertension Yes: NO MEDS FOR 5 MONTHS 07/28/24 14:38 Hx Sleep Apnea Yes 07/28/24 14:38 CPAP Yes: NO MACHINE CURRENTLY 07/28/24 14:38 BIPAP No 07/28/24 14:38 Do you snore loudly (louder than talking or can be heard Do you often feel tired/ fatigued/ sleepy during daytime? Has anyone observed you stop breathing during sleep? STOP Results Positive 07/28/24 14:38 QUESTION #5 FULL TEXT : Do you snore loudly (louder than talking or can be heard through closed doors)? Tobacco Use History Tobacco Use History - bridge repair crew person: Tobacco Use History - bridge repair crew person Tobacco Use Smoking Status Former smoker 07/28/24 14:38 Hx Tobacco Use No 07/28/24 14:38 Years Smoking Packs Smoked per Day Smoking Cessation Date was No - quit smoking greater 07/28/24 14:38 within the last 15 years than 15 years ago Hx Smoking Cessation Date 08/07/00 07/28/24 14:38 Hx Smoking Cessation No 07/28/24 14:38 Counseling Hematologic Medial History Hematologic Hx - bridge repair crew person: Hematologic Medical Hx - fibreglass laminator Hx of Blood Transfusion Yes 07/28/24 14:38 Hx of Transfusion in last 3 No 07/28/24 14:38 Months Date of Last Transfusion (if within last 3 months) Ever experience any problems No 07/28/24 14:38 with transfusion(s)? Specify any problems Hx of Preganancy in last 3 No 07/28/24 14:38 Months Nurse Filling Out Transfusion DSCHRIBER 07/28/24 14:38 & Questions: Date: 07/28/24 07/28/24 14:38 Time: 14:42 07/28/24 14:38 Patient unable to answer at this time (ie. confused, unrespo /Reproduction History /Reproductive History - bridge repair crew person: /Reproductive Hx- bridge repair crew person Hx Now No 07/28/24 14:38 Gestational Age (in weeks): EDC: Hx Hx Para Hx Section SAB No 07/28/24 14:38 PFSH Medical History Anxiety Loose, teeth Post-menopausal Insulin dependent diabetes mellitus History of renal disease Uses wheelchair Substance abuse Marijuana use Alcohol use Cirrhosis Fatty liver High cholesterol Chronic headaches Syncope Neuroendocrine carcinoma Dietary restriction History of GI bleed Former smoker CPAP (continuous positive airway pressure) dependence Asthma On home oxygen therapy Shortness of breath on exertion History of edema History of echocardiogram Hypertension Primary malignant neuroendocrine tumor of stomach Left carpal tunnel syndrome Right carpal tunnel syndrome Right wrist pain History of alcoholism Fatigue Hyperkalemia Noncompliance with medication regimen Depression Back pain Bloody stool Thyroid disease Anemia Arthritis Morbid obesity Hyperlipidemia Hypothyroidism Home Medications ?Medication ?Instructions ?Recorded ?Last Taken ?Type albuterol sulfate 2.5 mg/3 mL 2.5 mg inhalation Q4H PRN PRN Sob 04/11/18 04/17/23 History (0.083 %) solution for nebulization &/Or Wheezing blood-glucose meter,continuous #1 ea 02/18/23 Unknown Rx (Dexcom G7 Network Coordinator) blood-glucose sensor (Dexcom G7 #3 ea 02/18/23 Unknown Rx Sensor device) acetaminophen 500 mg tablet 500 - 1,000 mg PO Q6H PRN fever or 04/18/23 03/03/24 History pain blood sugar diagnostic (OneTouch #100 ea 09/23/23 Unknown Rx Verio test strips) levothyroxine 200 mcg tablet 200 mcg PO DAILY hypothyroidism 09/23/23 03/03/24 Rx #90 tabs fluoxetine 40 mg capsule 40 mg PO DAILY depression 03/11/24 Unknown History insulin regular hum U-500 conc 500 100 unit (0.2 mL) subcut TID DM 03/12/24 Unknown Rx unit/mL(3 mL) subcut pen (Humulin #18 mL R U-500 (Conc) Insulin Kwikpen) pantoprazole 40 mg tablet,delayed 40 mg PO BID 30 days #60 tabs 04/07/24 Unknown Rx release sucralfate 1 gram tablet 1 g PO 1HR_ACHS 14 days #42 tabs 04/07/24 Unknown Rx fenofibrate nanocrystallized 48 mg 48 mg PO QHS 1 month #30 tabs 05/09/24 Un known Rx tablet cholecalciferol (vitamin D3) 1,250 1,250 mcg PO QWEEK 4 weeks #4 tabs 05/12/24 Unknown Rx mcg (50,000 unit) tablet dulaglutide 4.5 mg/0.5 mL 4.5 mg subcut NARVAEZ 07/28/24 07/05/24 History subcutaneous pen injector (Trulicity) Allergy/AdvReac Type Severity Reaction Status Date / Time codeine Allergy Angioedema Verified 07/28/24 14:33 nitrofurantoin Allergy edema Verified 07/28/24 14:33 Penicillins Allergy Rash Verified 07/28/24 14:33 Sulfa (Sulfonamide Allergy Rash Verified 07/28/24 14:33 Antibiotics) sulfamethoxazole (Bactrim) Allergy Unknown Verified 07/28/24 14:33 trimethoprim (Bactrim) Allergy Unknown Verified 07/28/24 14:33 Family History Father Cancer Mother Diabetes Grandfather Heart disease Grandmother CVA (cerebral vascular accident) Surgical History Hx of dilation and curettage Hx laparoscopic cholecystectomy Hx of colonoscopy History of esophagogastroduodenoscopy (EGD) Social History household members: none housing: apartment pets and animals: No Smoking Status: Former smoker Tobacco: How many years used: 2 alcohol intake: former details: Quit 2000 substance use type: does not use caffeine: Yes Type: tea Review of Systems (Anesthesia) ROS Narrative System reviewed and no additional complaints, except as documented.
[2024-07-29] MEDS: Insulin Lispro 100 UNIT/ML INSULN.PEN 8 UNIT SC (13:00)
--- NOTE | 2024-07-29 13:04 | PCM.HP.STD ---
HPI - General General Date of Admission: 07/29/24 Date of Service: 07/29/24 Chief Complaint: Neuroendocrine tumor of the stomach HPI Narrative LEROY TYLER, is a 58 F who presentsTERREECE TYLER, is a 58 F who presents to the office today for follow up. OV 04.14.24- Reports RUQ and across lower abdominal pain. The patient is not a good historian. Most of the questions related to the abdominal pain she is not sure are clear. She describes right upper quadrant pain 09/28 but she also feels in both lower quadrant and left upper quadrant. She cannot tell whether food or type of food make it better or worse. She had cholecystectomy in the . 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 She has left today Trickey stone and has follow-up with the urologist on April 23. Occ constipation. Omeprazole 40 mg and Pantoprazole 40 mg BID for abdominal pain that is somewhat effective. Sucralfate 1 gm q & HS also appears to be helpful. Pelvic pressure when needing to urinate. OV 24- Pt reports no changes in sx. still has upper abdominal pain mainly in epigastric with a band from right to left upper quadrant. Complain of early satiety after 2 or 3 bites sometimes nonallergenic. Had 1 vomiting mainly gastric 3 weeks ago. No GI bleed. She also has constipation, has to strain for BM about once in 2 days. Stool is formed. She follows Dr. Qiu next appointment to 21. On 2 L oxygen. She also follows urologist, in [place]. It seems from description that patient has cystocele and has to pull up the bladder in order to urinate. OV 05.29.24 Pt reports no new changes as she was just seen here in our office 2 weeks ago. She wanted to get an appointment to be scheduled for a colonoscopy. She was unable to go to her EUS procedure at [facility] on 05/25 as she could not get transportation. Gastric Emptying Study 06.16.24- Abnormal, The T ? linear fit was extrapolated to be 355.93 minutes, OV 1.7.25- Patient underwent EUS 06/23/24 at [facility]. Has followed up with [facility] surgical oncology for gastric NET with lymph node metastases. Pt states she is overall well. Has increased fatigue. Currently is not having any abdominal pain or nausea. Pt states her BM have been good 1-2 times a day. No other conerns. [facility] Medical History Anxiety Loose, teeth Post-menopausal Insulin dependent diabetes mellitus History of renal disease Uses wheelchair Substance abuse Marijuana use Alcohol use Cirrhosis Fatty liver High cholesterol Chronic headaches Syncope Neuroendocrine carcinoma Dietary restriction History of GI bleed Former smoker CPAP (continuous positive airway pressure) dependence Asthma On home oxygen therapy Shortness of breath on exertion History of edema History of echocardiogram Hypertension Primary malignant neuroendocrine tumor of stomach Left carpal tunnel syndrome Right carpal tunnel syndrome Right wrist pain History of alcoholism Fatigue Hyperkalemia Noncompliance with medication regimen Depression Back pain Bloody stool Thyroid disease Anemia Arthritis Morbid obesity Hyperlipidemia Hypothyroidism Home Medications ?Medication ?Instructions ?Recorded ?Last Taken ?Type albuterol sulfate 2.5 mg/3 mL 2.5 mg inhalation Q4H PRN PRN Sob 04/11/18 04/17/23 History (0.083 %) solution for nebulization &/Or Wheezing blood-glucose meter,continuous #1 ea 02/18/23 Unknown Rx (Dexcom G7 Flat Surfacer Jewel) blood-glucose sensor (Dexcom G7 #3 ea 02/18/23 Unknown Rx Sensor device) acetaminophen 500 mg tablet 500 - 1,000 mg PO Q6H PRN fever or 04/18/23 03/03/24 History pain blood sugar diagnostic (OneTouch #100 ea 09/23/23 Unknown Rx Verio test strips) levothyroxine 200 mcg tablet 200 mcg PO DAILY hypothyroidism 09/23/23 03/03/24 Rx #90 tabs fluoxetine 40 mg capsule 40 mg PO DAILY depression 03/11/24 Unknown History insulin regular hum U-500 conc 500 100 unit (0.2 mL) subcut TID DM 03/12/24 Unknown Rx unit/mL(3 mL) subcut pen (Humulin #18 mL R U-500 (Conc) Insulin Kwikpen) pantoprazole 40 mg tablet,delayed 40 mg PO BID 30 days #60 tabs 04/07/24 Unknown Rx release sucralfate 1 gram tablet 1 g PO 1HR_ACHS 14 days #42 tabs 04/07/24 Unknown Rx fenofibrate nanocrystallized 48 mg 48 mg PO QHS 1 month #30 tabs 05/09/24 Unknown Rx tablet cholecalciferol (vitamin D3) 1,250 1,250 mcg PO QWEEK 4 weeks #4 tabs 05/12/24 Unknown Rx mcg (50,000 unit) tablet dulaglutide 4.5 mg/0.5 mL 4.5 mg subcut NARVAEZ 07/28/24 07/05/24 History subcutaneous pen injector (Trulicity) Allergy/AdvReac Type Severity Reaction Status Date / Time codeine Allergy Angioedema Verified 07/29/24 12:43 nitrofurantoin Allergy edema Verified 07/29/24 12:43 Penicillins Allergy Rash Verified 07/29/24 12:43 Sulfa (Sulfonamide Allergy Rash Verified 07/29/24 12:43 Antibiotics) sulfamethoxazole (Bactrim) Allergy Unknown Verified 07/29/24 12:43 trimethoprim (Bactrim) Allergy Unknown Verified 07/29/24 12:43 Family History Father Cancer Mother Diabetes Grandfather Heart disease Grandmother CVA (cerebral vascular accident) Surgical History Hx of dilation and curettage Hx laparoscopic cholecystectomy Hx of colonoscopy History of esophagogastroduodenoscopy (EGD) Social History household members: none housing: apartment pets and animals: No Smoking Status: Former smoker Tobacco: How many years used: 2 alcohol intake: former details: Quit 2000 substance use type: does not use caffeine: Yes Type: tea ROS Constitutional Constitutional: Reports systems reviewed and no addt'l complaints, except as documented; Denies weight loss Eyes Eyes: Reports systems reviewed and no addt'l complaints, except as documented ENT HEENT: Reports systems reviewed and no addt'l complaints, except as documented Cardiovascular Cardiovascular: Reports systems reviewed and no addt'l complaints, except as documented; Denies chest pain or edema Respiratory/Chest Respiratory/Chest: Reports dyspnea on exertion; Denies cough or hemoptysis Gastrointestinal Gastrointestinal: Reports systems reviewed and no addt'l complaints, except as documented; Denies abdominal pain, dysphagia, hematochezia or melena Genitourinary Genitourinary: Reports systems reviewed and no addt'l complaints, except as documented Musculoskeletal Musculoskeletal: Reports systems reviewed and no addt'l complaints, except as documented Integumentary Integumentary: Reports systems reviewed and no addt'l complaints, except as documented; Denies new lesions Neurologic Neurologic: Reports systems reviewed and no addt'l complaints, except as documented; Denies focal weakness or paresthesias Psychiatric Psychiatric: Reports systems reviewed and no addt'l complaints, except as documented Endocrine Endocrinology: Reports systems reviewed and no addt'l complaints, except as documented Hematologic/Lymphatic Hematologic/Lymphatic: Reports systems reviewed and no addt'l complaints, except as documented and anemia; Denies easy bleeding or easy bruising Allergic/Immunologic Allergic/Immunologic: Reports systems reviewed and no addt'l complaints, except as documented Vital Signs Vital Signs Vital Signs: 07/29/24 12:43 07/29/24 12:43 Temperature 97 F L Temperature Source Temporal Pulse Rate 99 Respiratory Rate 16 Respiratory Pattern Normal Blood Pressure 119/65 Blood Pressure Mean 83 Blood Pressure Source Monitor Blood Pressure Position Sitting Blood Pressure Location Left Arm Pulse Ox 100 Oxygen Delivery Method Nasal Cannula Oxygen Flow Rate (L/min) 2 Weight Weight: 233 lb 11.04 oz Body Mass Index (BMI) 44.1 Physical Exam Narrative ECOG 1, on oxygen Const alert, oriented x3 and no apparent distress Nutritional Appearance: morbidly obese HEENT normocephalic Mouth: oral and palatal mucosa normal Eyes General Eye: normal appearance of both eyes Neck no lymphadenopathy and no JVD Resp clear to auscultation bilaterally Cardio regular rate and regular rhythm Jugular Venous Distention: Negative for JVD GI soft to palpation, non-tender and non-distended Back/Spine no thoracic nor lumbar tenderness Extremity no clubbing, cyanosis or edema Skin no rashes or lesions noted Neuro oriented x3, CN's II-XII intact bilaterally, moves all extremities and no focal motor deficits Coordination / Balance: [id number] test normal Speech: speech normal Gait (Neuro): normal gait Assessment & Plan Assessment/Plan (1) Neuroendocrine tumor: (2) Gastroparesis: PLAN: Plan Assessment and Plan Assessment and Plan (1) NAFLD (nonalcoholic fatty liver disease): Status: Chronic Plan: EGD on 04/04/2024 Impressions : - Normal esophagus. - Multiple gastroesophageal junction polyps. Biopsied. - A severely bleeding single gastric polyp. Resected and retrieved. Injected. Tattooed. Clips were placed. - No gross lesions in the first portion of the duodenum. Continue PPI pantoprazole 40 mg twice daily for total of 3 months and sucralfate for [address] abdomen done in February and March 2024 does not show bowel issues including small bowel diverticulitis. Appendix appeared normal. She had cholecystectomy. Gastric emptying study on 06/16/2024 reported minimal and severe delayed semisolid phase of gastric emptying study. Patient does not have symptoms of burping, reflux, vomiting. She is also on Trulicity which is GLP agonist which can cause delayed gastric emptying Labs reviewed April 2024. A1c 7.2%, glucose 239. Fasting profile high, triglyceride 526, TC 181, LDL and VLDL could not be calculated. A/G ratio 0.6. Repeat labs from May 2024 shows triglyceride 265, LDL 95 TC 193. Gastrin 740. Tt IgA n low, Tt IgG normal. Patient denies any gluten sensitivity. Continue fenofibrate 48 mg daily Liver ultrasound with elastography not reported yet. Comprehensive celiac antibody profile ordered. ELF serum test ordered Advised to follow-up in 4 months. (2) Neuroendocrine tumor: Status: Chronic Plan: Patient had endoscopy with biopsy at [facility] on 06/23/2024. Pathology diagnosis shows metastatic neuroendocrine tumor, well-differentiated, positive for tumor markers chromogranin and synaptophysin. It also has stomach cardiac port biopsy shows hyperplastic polyp with no evidence of epithelial dysplasia. The patient is stated that she has follow-up tomorrow at [facility] with surgeon and possible oncologist or radiologist she does not know. She also has follow-up with [facility] oncology here. Patient has morbid obesity. Lost 2 pounds since last visit. BMI 44 kg/m?, body weight 237 pounds. She has central/truncal obesity with panniculus and lower abdomen/pelvis. Comprehensive labs ordered. Liver ultrasound with elastography including spleen ordered but not done. Follow with PCP for optimal control of diabetes mellitus Orders:
--- NOTE | 2024-07-29 13:30 | COLBX_PTH ---
PATIENT: LEROY TYLER LOC: EN U#:[id number] AGE/SX: 58/F ROOM: RE07/29/[address]: Dr. Brayan Cast DO : 1965 BED: DIS: 07/29/2024 SPEC #: [id number] RECD: 07/29/24 17:25 STATUS: GURMEET ANA #: [id number] NICOL: 07/29/24 13:[address]: Brayan Cast DEPT: SURGICAL PATHOLOGY RECD BY: Callie Blancas ENTERED: 07/30/24 10:14 SP TYPE: COLON BX OTHR DR: DARLING KWAN Tissues: A - Ileum, NOS B - COLON BIOPSY C - Rectum, NOS Procedures: Surgery Specimen Level IV HEADER OPERATION: Colonoscopy with biopsy PRE-OP DIAGNOSIS: Neuroendocrine tumor, gastroparesis TISSUE SUBMITTED: A- Terminal ileum biopsy, B- Random colon biopsy, C- Rectum biopsy MICROSCOPIC DIAGNOSIS A. Terminal ileum, biopsy: Fragments of small intestinal mucosa, no pathologic diagnosis. B. Colon, random biopsy: Fragments of colonic mucosa with mild non-specific chronic inflammation. See comment. C. Rectum, biopsy: Fragments of colonic mucosa with mild non-specific chronic inflammation. See comment. 07/31/2024 COMMENT B, C. Active inflammation is not seen. Correlation with clinical, endoscopic findings and appropriate follow up are necessary. Please also make reference to previous specimen [id number], gastric mass, biopsy with diagnosis of well differentiated neuroendocrine tumor, WHO grade 1. MICROSCOPIC DESCRIPTION Slides are reviewed. GROSS DESCRIPTION A. Received in fixative is one container labeled with the patient's name and designated Terminal ileum biopsy. The specimen consists of two irregular fragments of light perry soft tissue that measuring in aggregate 0.5 x 0.2 x 0.1 cm. The specimen is totally submitted in one cassette. B. Received in fixative is one container labeled with the patient's name and designated Random colon biopsy. The specimen consists of multiple irregular fragments of light perry soft tissue that in aggregate measure 1.3 x 0.5 x 0.2 cm. The specimen is totally submitted in one cassette. C. Received in fixative is one container labeled with the patient's name and designated Rectum biopsy. The specimen consists of two irregular fragments of light perry soft tissue that in aggregate measure 0.5 x 0.2 x 0.1 cm. The specimen is totally submitted in one cassette. 07/30/2024 TC:3 CPT:[id number]
[2024-07-29 13:43] LABS: Bedside Glucose 370 mg/dL (74-106)
--- NOTE | 2024-07-29 14:11 | OP.COLON_ITS ---
Patient Name: Marika Montejo Procedure Date: 07/29/2024 1:33 PM Date of : 1965 Age: 58 Procedure: Colonoscopy Indications: Abdominal pain in the left lower quadrant, Abdominal pain in the right upper quadrant, Chronic diarrhea, Clinically significant diarrhea of unexplained origin Providers: Brayan Cast DO Referring MD: Brayan Cast DO Medicines: Monitored Anesthesia Care Patient Profile: This is a 58 year old female. Refer to note in patient chart for documentation of history and physical. Last Colonoscopy: date unknown. Unable to locate last colonoscopy report. Complications: No immediate complications. Procedure: Pre-Anesthesia Assessment: - Prior to the procedure, a History and Physical was performed, and patient medications and allergies were reviewed. The patient is competent. The risks and benefits of the procedure and the sedation options and risks were discussed with the patient. All questions were answered and informed consent was obtained. Patient identification and proposed procedure were verified by the physician in the pre-procedure area. Mental Status Examination: alert and oriented. Airway Examination: normal oropharyngeal airway and neck mobility. Respiratory Examination: clear to auscultation. CV Examination: normal. Prophylactic Antibiotics: The patient does not require prophylactic antibiotics. Prior Anticoagulants: The patient has taken no anticoagulant or antiplatelet agents except for NSAID medication. ASA Grade Assessment: II - A patient with mild systemic disease. After reviewing the risks and benefits, the patient was deemed in satisfactory condition to undergo the procedure. The anesthesia plan was to use monitored anesthesia care (MAC). Immediately prior to administration of medications, the patient was re-assessed for adequacy to receive sedatives. The heart rate, respiratory rate, oxygen saturations, blood pressure, adequacy of pulmonary ventilation, and response to care were monitored throughout the procedure. The physical status of the patient was re-assessed after the procedure. After I obtained informed consent, the scope was passed under direct vision. Throughout the procedure, the patient's blood pressure, pulse, and oxygen saturations were monitored continuously. The Colonoscope was introduced through the anus and advanced to the terminal ileum. The colonoscopy was performed without difficulty. The patient tolerated the procedure well. The quality of the bowel preparation was fair. The terminal ileum, ileocecal valve, appendiceal orifice, and rectum were photographed. Scope In: 1:51:02 PM Scope Withdrawal Time 0 hours 9 minutes 11 seconds Scope Out: 2:04:14 PM Total Procedure Duration Time 0 hours 13 minutes 12 seconds Findings: The perianal and digital rectal examinations were normal. Stool was found in the recto-sigmoid colon, in the sigmoid colon, in the descending colon, in the transverse colon and in the cecum. An area of mildly congested mucosa was found in the rectum, in the recto-sigmoid colon, in the sigmoid colon and in the transverse colon. Biopsies were taken with a cold forceps for histology. Verification of patient identification for the specimen was done. Estimated blood loss was minimal. A patchy area of the distal ileum was congested. Biopsies were taken with a cold forceps for histology. Verification of patient identification for the specimen was done. Estimated blood loss was minimal. Mild rectal prolapse was present. Impression: - Preparation of the colon was fair. - Stool in the recto-sigmoid colon, in the sigmoid colon, in the descending colon, in the transverse colon and in the cecum. - Congested mucosa in the rectum, in the recto-sigmoid colon, in the sigmoid colon and in the transverse colon. Biopsied. - Congested mucosa in the distal ileum. Biopsied. Recommendation: - Discharge patient to home. - Resume previous diet. - Continue present medications. - Await pathology results. - Repeat colonoscopy in 6 months because the bowel preparation was suboptimal. Procedure Code(s): --- Professional --- 60942, Colonoscopy, flexible; with biopsy, single or multiple CPT copyright 2021 [employer]. All rights reserved. The codes documented in this report are preliminary and upon educational assistant review may be revised to meet current compliance requirements. Brayan Cast DO 07/29/2024 2:10:44 PM This report has been signed electronically. Number of Addenda: 0 Note Initiated On: 07/29/2024 1:33 PM
--- NOTE | 2024-07-29 14:11 | OP.CCLET_ITS ---
07/29/2024 Ashlee Lundberg Re : Colonoscopy procedure for Marika Montejo Dear Neelima This procedure was performed on Monday, July 29, 2024. My impressions and recommendations are as follows: Impressions : - Preparation of the colon was fair. - Stool in the recto-sigmoid colon, in the sigmoid colon, in the descending colon, in the transverse colon and in the cecum. - Congested mucosa in the rectum, in the recto-sigmoid colon, in the sigmoid colon and in the transverse colon. Biopsied. - Congested mucosa in the distal ileum. Biopsied. Recommendations : - Discharge patient to home. - Resume previous diet. - Continue present medications. - Await pathology results. - Repeat colonoscopy in 6 months because the bowel preparation was suboptimal. My findings are described in the full procedure note, which is enclosed. If I can be of further assistance, please feel free to contact me at . Sincerely, Brayan Cast, 07/29/2024 2:10:44 PM This report has been signed electronically.
--- NOTE | 2024-07-29 14:15 | PCM.POST.ANE ---
Anesthesia: Postop Eval I Current Vital Signs Temperature: 97.4 F Pulse Rate: 64 Blood Pressure: 84/41 Respiratory Rate: 16 Pulse Ox: 99 Oxygen Delivery Method: Nasal Cannula Oxygen Flow Rate (L/min): 2 Assessment Airway patent: Yes Spontaneous unlabored respirations: Yes Mental status: Asleep nausea: No Vomiting: No Anesthesia Complication: No Fluid Hydration Crystalloid volume administer (ml): 40 Total IV fluid infused: 40 Progress Note Anesthesia document: Postop Eval 1 completed: Yes
--- NOTE | 2024-07-29 14:29 | PCM.POSTANE2 ---
Anesthesia Postop Eval I Sum Postop Eval Completion status Anesthesia document: Postop Eval 1 completed: Yes Anesthesia Postop Eval I Summary Anesthesia Postop Eval I Summary: Anesthesia Postop Eval I: Assessment Summary Airway patent Yes 07/29/24 14:16 [email or web address] Spontaneous unlabored Yes 07/29/24 14:16 [email or web address] respirations Mental status Asleep 07/29/24 14:16 [email or web address] nausea No 07/29/24 14:16 [email or web address] Vomiting No 07/29/24 14:16 [email or web address] Anesthesia Postop Eval I: Fluid Summary Crystalloid volume administer 40 07/29/24 14:16 [email or web address] (ml) Colloids volume administered ( ml) Blood Product volume administered (ml) Total IV fluid infused 40 07/29/24 14:16 [email or web address] Anesthesia Postop Eval I: Summary Notes Anesthesia Complication No 07/29/24 14:16 [email or web address] Anesthesia Complication Comment: Post-operative progress note Anesthesia: Postop Eval II Evaluation Mental status: Awake Pain Level: 1 nausea: No Vomiting: No
[2024-07-29] MEDS: Insulin Lispro 100 UNIT/ML INSULN.PEN 10 UNIT SC (15:16)
[2024-07-29 15:47] LABS: Bedside Glucose 367 mg/dL (74-106)
== END 2024-07-29 15:55 | disposition home or self-care (01) ==
LOC: EN 12:25 → AC 12:26
PROVIDERS: PCP Nurse Practitioner Adult Health; Referring Provider Internal Medicine Gastroenterology; Visit Provider Internal Medicine Gastroenterology
PROC: 0DJD8ZZ Inspection of Lower Intestinal Tract, Via Natural or Artificial Opening Endoscopic (ICD-10-PCS; CPT 45378; principal; 2024-07-29 13:25)
DX: C7A.8 Other malignant neuroendocrine tumors (principal); C77.9 Secondary and unspecified malignant neoplasm of lymph node, unspecified; E66.01 Morbid (severe) obesity due to excess calories; Z68.41 Body mass index [BMI] 40.0-44.9, adult; E11.43 Type 2 diabetes mellitus with diabetic autonomic (poly)neuropathy; Z79.4 Long term (current) use of insulin; K52.9 Noninfective gastroenteritis and colitis, unspecified; K62.3 Rectal prolapse; K31.84 Gastroparesis; K76.0 Fatty (change of) liver, not elsewhere classified; E03.9 Hypothyroidism, unspecified; E78.00 Pure hypercholesterolemia, unspecified; Z79.85 Long-term (current) use of injectable non-insulin antidiabetic drugs; Z79.890 Hormone replacement therapy; Z79.899 Other long term (current) drug therapy; Z87.891 Personal history of nicotine dependence
CPT/HCPCS: 45380; 82962; 88305; A4216; J2405

== ENCOUNTER → 2024-09-24 | Outpatient (CLI) | payer MEDICAID, SELFPAY ==
[2024-09-24 15:20] LABS: Absolute Lymphocyte Count 2.28 X10^3/uL (0.83-4.51); Absolute Neutrophil Count 7.9 X10^3/uL (2.0-7.7); Basophil# 0.07 X10^3/uL; Basophil% 0.6 % (0-1); Eosinophil# 0.22 X10^3/uL; Hematocrit 36.8 % (37-47); Hemoglobin 11.7 g/dL (12.0-15.0); Lymphocyte # 2.28 X10^3/ul (0.83-4.51); Lymphocyte % 20.7 % (19-41); Mean Corp Hgb Conc 31.8 g/dL (32-36); Mean Corpuscular Volume 78.6 fL (81-99); Mean Platelet Vol. 10.4 fl (6.2-12.0); Monocyte# 0.49 X10^3/uL; Monocyte% 4.4 % (0-10); NRBC Flagged by Analyzer 0 % (0-5); Neutrophil # 7.86 X10^3/uL (2.7-7.7); Neutrophil % 71.2 % (47-70); Platelet Count 261 K/mm3 (150-450); RBC Distribution Width CV 15.5 % (11.6-14.6); RBC Distribution Width SD 42.7 fl (35.1-43.9); Red Blood Count 4.68 M/mm3 (4.2-5.4)
== END | disposition home or self-care (01) ==
PROVIDERS: PCP Nurse Practitioner Adult Health; Referring Provider Internal Medicine; Visit Provider Internal Medicine
DX: D50.9 Iron deficiency anemia, unspecified (principal)
CPT/HCPCS: 36415; 85025

== ENCOUNTER → 2024-09-28 | Outpatient (CLI) | payer MEDICAID, SELFPAY | END | disposition home or self-care (01) | PROVIDERS: PCP Nurse Practitioner Adult Health; Referring Provider Nurse Practitioner Family; Visit Provider Nurse Practitioner Family | DX: G47.10 Hypersomnia, unspecified (principal); G47.33 Obstructive sleep apnea (adult) (pediatric) | CPT/HCPCS: 95810 ==

== ENCOUNTER 2024-09-30 00:32 | Emergency (ER) | payer MEDICAID, SELFPAY ==
[2024-09-30 00:34] VITALS: BP 140/82; PULSE 87; RESP 16; TEMP 36.5; O2SAT 99; BMI 43.2
--- NOTE | 2024-09-30 01:07 | RAD_ITS ---
PROCEDURE: FOOT MIN 3 VIEWS REASON FOR EXAM: PAIN TECHNIQUE: 3 view(s) of left foot COMPARISON: None. FINDINGS: LEFT FOOT: No fracture or dislocation. Joint space narrowing seen at the medial aspect of the 1st metatarsophalangeal joint. No erosive change, sclerosis or periosteal reaction identified. Soft tissue swelling at the forefoot. Talonavicular and midfoot osteoarthrosis. Enthesophyte formation at the plantar more than the Achilles surfaces of the calcaneus. RAD/Foot min 3 Views IMPRESSION: No fracture or dislocation. Joint space narrowing seen at the medial aspect of the 1st metatarsophalangeal joint. No erosive change, sclerosis or periosteal reaction identified. Soft tissue swelling at the forefoot. Midfoot osteoarthrosis. Enthesophyte formation of the calcaneus as above. Reading Location: [id number]
[2024-09-30] MEDS: Ketorolac 30 MG/ML Syringe IM (01:12)
[2024-09-30] MEDS: Gabapentin 300 MG Capsule PO (01:47)
--- NOTE | 2024-09-30 01:57 | EX.ED.DYSGE1 ---
HPI History of Present Illness Chief Complaint: Lower Extremity Injury Informant: patient Narrative Narrative: Patient is 58-year-old female with past medical history of insulin-dependent diabetes hypertension asthma and gastroparesis. She states that today she has had intermittent pain in the left foot which she states is sharp and stabbing in nature and occurs and almost a spasm fashion. She states that there was no recent trauma. She denies any increased physical activity. She states there is been no fevers or chills and she denies any redness or discoloration to the foot. However she has tried pmle-geo-xnmquan medication without symptom improvement and therefore comes in for evaluation [facility] Medical History Anxiety Loose, teeth Post-menopausal Insulin dependent diabetes mellitus History of renal disease Uses wheelchair Substance abuse Marijuana use Alcohol use Cirrhosis Fatty liver High cholesterol Chronic headaches Syncope Neuroendocrine carcinoma Dietary restriction History of GI bleed Former smoker CPAP (continuous positive airway pressure) dependence Asthma On home oxygen therapy Shortness of breath on exertion History of edema History of echocardiogram Hypertension Primary malignant neuroendocrine tumor of stomach Left carpal tunnel syndrome Right carpal tunnel syndrome Right wrist pain History of alcoholism Fatigue Hyperkalemia Noncompliance with medication regimen Depression Back pain Bloody stool Thyroid disease Anemia Arthritis Morbid obesity Hyperlipidemia Hypothyroidism Home Medications ?Medication ?Instructions ?Recorded ?Last Taken ?Type albuterol sulfate 2.5 mg/3 mL 2.5 mg inhalation Q4H PRN PRN Sob 04/11/18 04/17/23 History (0.083 %) solution for nebulization &/Or Wheezing blood-glucose meter,continuous #1 ea 02/18/23 Unknown Rx (Dexcom G7 Data Analysis Assistant) blood-glucose sensor (Dexcom G7 #3 ea 02/18/23 Unknown Rx Sensor device) acetaminophen 500 mg tablet 500 - 1,000 mg PO Q6H PRN fever or 04/18/23 03/03/24 History pain blood sugar diagnostic (OneTouch #100 ea 09/23/23 Unknown Rx Verio test strips) levothyroxine 200 mcg tablet 200 mcg PO DAILY hypothyroidism 09/23/23 03/03/24 Rx #90 tabs fluoxetine 40 mg capsule 40 mg PO DAILY depression 03/11/24 Unknown History insulin regular hum U-500 conc 500 100 unit (0.2 mL) subcut TID DM 03/12/24 Unknown Rx unit/mL(3 mL) subcut pen (Humulin #18 mL R U-500 (Conc) Insulin Kwikpen) pantoprazole 40 mg tablet,delayed 40 mg PO BID 30 days #60 tabs 04/07/24 Unknown Rx release sucralfate 1 gram tablet 1 g PO 1HR_ACHS 14 days #42 tabs 04/07/24 Unknown Rx fenofibrate nanocrystallized 48 mg 48 mg PO QHS 1 month #30 tabs 05/09/24 Unknown Rx tablet dulaglutide 4.5 mg/0.5 mL 4.5 mg subcut NARVAEZ 07/28/24 07/05/24 History subcutaneous pen injector (Trulicity) fluticasone furoate 200 1 inh inhalation Q24H #30 ea 09/04/24 Unknown Rx mcg/actuation blister powder for inhalation (Arnuity Ellipta) lancets 30 gauge (Easy Touch #100 ea 09/24/24 Unknown Rx Lancets) cholecalciferol (vitamin D3) 1,250 1,250 mcg PO QWEEK 09/30/24 Unknown History mcg (50,000 unit) capsule ferrous sulfate 325 mg (65 mg 325 mg PO QODAY 09/30/24 Unknown History iron) tablet gabapentin 300 mg capsule 300 mg PO TID 30 days #90 caps 09/30/24 Unknown Rx oxycodone-acetaminophen 5 mg-325 1 tab PO Q6H PRN pain 3 days #12 09/30/24 Unknown Rx mg tablet (Percocet) tabs Allergy/AdvReac Type Severity Reaction Status Date / Time codeine Allergy Angioedema Verified 09/30/24 00:35 nitrofurantoin Allergy edema Verified 09/30/24 00:35 Penicillins Allergy Rash Verified 09/30/24 00:35 Sulfa (Sulfonamide Allergy Rash Verified 09/30/24 00:35 Antibiotics) sulfamethoxazole (Bactrim) Allergy Unknown Verified 09/30/24 00:35 trimethoprim (Bactrim) Allergy Unknown Verified 09/30/24 00:35 Family History Father Cancer Mother Diabetes Grandfather Heart disease Grandmother CVA (cerebral vascular accident) Surgical History Hx of dilation and curettage Hx laparoscopic cholecystectomy Hx of colonoscopy History of esophagogastroduodenoscopy (EGD) Social History household members: none housing: apartment pets and animals: No Smoking Status: Former smoker Tobacco: How many years used: 2 alcohol intake: former details: Quit 2000 substance use type: does not use caffeine: Yes Type: tea ROS ROS ED Constitutional Constitutional ED: Denies chills or fever(s) ENT ENT ED: Denies sore throat Cardiovascular Cardiovascular: Denies chest pain Respiratory/Chest Respiratory/Chest: Denies cough Gastrointestinal Gastrointestinal: Denies abdominal pain, diarrhea, nausea or vomiting Genitourinary Genitourinary ED: Denies dysuria Musculoskeletal Musculoskeletal: Reports other Details: Positive left foot pain Integumentary Denies Abrasions or rash Neurologic Neurologic: Reports paresthesias; Denies headache(s) Hematologic/Lymphatic Hematologic/Lymphatic: Denies easy bleeding or easy bruising EXAM Physical Exam Const Vital Signs: 09/30/24 00:34 09/30/24 02:03 Temperature 97.7 F L 98.0 F Temperature Source Oral Pulse Rate 87 81 Respiratory Rate 16 18 Blood Pressure 140/82 H 121/66 H Blood Pressure Mean 101 84 Pulse Ox 99 97 Oxygen Delivery Method Room Air Positive well nourished, well developed and obese General Appearance ED: well developed; Negative for pallor Nutritional Appearance: obese HEENT HEENT Narrative: Normocephalic atraumatic Eyes PERRL and EOMs intact bilaterally General Eye ED: Negative for scleral icterus Neck supple Neck Narrative: No nuchal rigidity or meningeal signs Resp normal respiratory effort Resp Narrative: Breath sounds are diminished throughout with faint expiratory wheeze consistent with history of asthma/COPD but no signs of respiratory distress Cardio regular rate and regular rhythm Extremity Extremity Narrative: Left lower extremity is neurovascularly intact. There is no asymmetric edema or pitting edema and negative Homans' sign bilaterally. No overlying erythema or warmth to suggest infectious process such as cellulitis. No abscess formation noted. No lymphangitic streaking. Compartments are soft and compressible going against compartment syndrome. Pain is diffuse across the foot and not localized to a single joint space such as the first MTP going against gout. No diabetic ulcer noted. Compartments are soft and compressible going against compartment syndrome Patient has capillary refill less than 3 seconds with a normal plus 2 out of 4 dorsalis pedis pulse going against acute vascular occlusion Neuro oriented x3 and CN's II-XII intact bilaterally Sensorium / Orientation: alert Psych mental status grossly normal Skin no rashes or lesions noted and no wounds General Skin Exam: Negative for jaundice or pallor MDM MDM MDM Narrative Medical decision making narrative: Patient presented to the ER with stable vitals. She reported pain across the left foot diffusely without recent trauma or excessive activity. By exam she has a normal pulse and color and capillary refill going against acute arterial occlusion. There are no physical exam findings to suggest acute DVT. Patient does not have overlying warmth or redness or swelling to suggest cellulitis abscess or gout. No soft tissue lesions are noted to suggest diabetic ulcer. In order to rule out an occult fracture Charcot joint osteomyelitis or potential foreign body as a cause of her pain a x-ray was ordered. This revealed degenerative changes without acute findings. Therefore I feel that based on the diffuse location of her pain and the fact she is a poorly controlled diabetic that this is most likely neuropathy. She was given IM Toradol and oral gabapentin and did report improvement of her pain. At this time as she does not have signs of neurovascular compromise or signs of secondary infection I do not feel there is need for further workup and she is otherwise safe for discharge. History & Record Review Discussion w/independent historian: Patient Radiography Diagnostic Testing: Clinical Impression(s) from Imaging Studies Foot X-Ray 09/30/24 01:07 IMPRESSION: No fracture or dislocation. Joint space narrowing seen at the medial aspect of the 1st metatarsophalangeal joint. No erosive change, sclerosis or periosteal reaction identified. Soft tissue swelling at the forefoot. Midfoot osteoarthrosis. Enthesophyte formation of the calcaneus as above. Reading Location: [id number] X-ray of the left foot as interpreted by the emergency medicine physician reveals no acute fracture dislocation retained foreign body or signs of osteomyelitis Discharge Plan Triage Chief Complaint: Lower Extremity Injury ED Provider: Steven Mercado Dx/Rx/DC Orders Clinical Impression: Neuropathy, Gastroparesis, Asthma, Hypertension, Diabetes mellitus type 2, insulin dependent Instructions: ED Neuropathy, Peripheral Prescriptions: New oxycodone-acetaminophen [Percocet] 5-325 mg tablet 1 tab PO Q6H PRN (Reason: pain) 3 Days Qty: 12 0RF gabapentin 300 mg capsule 300 mg PO TID 30 Days Qty: 90 0RF No Action albuterol sulfate 2.5 mg /3 mL (0.083 %) solution for nebulization 2.5 mg INHALATION Q4H PRN PRN (Reason: Sob &/Or Wheezing) (DME) Dexcom G7 Sensor Device See Rx Instructions .Route Qty: 3 5RF Rx Instructions: 1 sensor q 10 days (DME) Dexcom G7 Data Analysis Assistant Misc See Rx Instructions .Route Qty: 1 0RF Rx Instructions: As directed (DME) OneTouch Verio test strips Strip See Rx Instructions .Route Qty: 100 5RF Rx Instructions: 4x/day levothyroxine 200 mcg tablet 200 mcg PO DAILY Qty: 90 1RF Humulin R U-500 (Conc) Kwikpen 500 unit/mL (3 mL) insulin pen 100 unit subcut TID Qty: 18 5RF Rx Instructions: Increase by 10u/meal if glucose >[address] Cervanets's office, hold if glucose <100. fluoxetine 40 mg capsule 40 mg PO DAILY Arnuity Ellipta 200 mcg/actuation blister with device 1 inh inhalation Q24H Qty: 30 5RF (DME) lancets [Easy Touch Lancets] 30 gauge misc See Rx Instructions .Route Qty: 100 5RF Rx Instructions: TID acetaminophen 500 mg tablet 500 - 1,000 mg PO Q6H PRN (Reason: fever or pain) Trulicity 4.5 mg/0.5 mL pen injector 4.5 mg subcut NARVAEZ ferrous sulfate 325 mg (65 mg iron) tablet 325 mg PO QODAY cholecalciferol (vitamin D3) 1,250 mcg (50,000 unit) capsule 1,250 mcg PO QWEEK sucralfate 1 gram Tablet 1 g PO 1HR_ACHS 14 Days Qty: 42 0RF pantoprazole 40 mg Tablet,Delayed Release (Dr/Ec) 40 mg PO BID 30 Days Qty: 60 2RF fenofibrate nanocrystallized 48 mg tablet 48 mg PO QHS 30 Days Qty: 30 5RF Primary Care Provider: OLU ORTIZ Referrals: OLU ORTIZ CRNP [Primary Care Provider] - Activity Restrictions/Additional Instructions: Your exam and history indicate that your pain is most likely from neuropathy secondary to your diabetes. Take the prescribed medication as directed to help control symptoms. If you develop a fever noticed increased redness or swelling or have any further concerns please return to the ER for repeat evaluation. Print Language: [place]anian Disposition Disposition: Home, Self Care Discharge Date/Time: 09/30/24 02:10
[2024-09-30 02:03] VITALS: BP 121/66; PULSE 81; RESP 18; TEMP 36.7; O2SAT 97
== END 2024-09-30 02:10 | disposition home or self-care (01) ==
PROVIDERS: Emergency Provider Emergency Medicine; PCP Nurse Practitioner Adult Health; Visit Provider Emergency Medicine
DX: E11.43 Type 2 diabetes mellitus with diabetic autonomic (poly)neuropathy (principal); E66.01 Morbid (severe) obesity due to excess calories; Z68.41 Body mass index [BMI] 40.0-44.9, adult; Z79.4 Long term (current) use of insulin; I10 Essential (primary) hypertension; E78.00 Pure hypercholesterolemia, unspecified; K31.84 Gastroparesis; J45.909 Unspecified asthma, uncomplicated; Z79.85 Long-term (current) use of injectable non-insulin antidiabetic drugs; Z79.899 Other long term (current) drug therapy; Z87.891 Personal history of nicotine dependence
CPT/HCPCS: 73630; 96372; 99283

== ENCOUNTER → 2024-10-05 | Outpatient (CLI) | payer MEDICAID, SELFPAY | END | disposition home or self-care (01) | PROVIDERS: PCP Nurse Practitioner Adult Health; Referring Provider Nurse Practitioner Family; Visit Provider Nurse Practitioner Family | DX: J45.909 Unspecified asthma, uncomplicated (principal) | CPT/HCPCS: 94060; 94726; 94729 ==

== ENCOUNTER → 2024-10-06 | Outpatient (CLI) | payer MEDICAID, SELFPAY ==
[2024-10-06 12:53] VITALS: PULSE 111; PULSE 113; PULSE 122; PULSE 127; PULSE 130; PULSE 131; PULSE 134; PULSE 95; O2SAT 93; O2SAT 95; O2SAT 96; O2SAT 97; O2SAT 98
--- NOTE | 2024-10-14 11:14 | PCM.PSN.6M ---
PSN 6 Minute Walk Test 6 Minute Walk Test 6 Minute Walk Test: 6 Minute Walk Test PSN:6-Minute Walk Test Start: 10/06/24 12:53 Freq: Status: Active Protocol: [id number].6MINW Document 10/06/24 12:53 EW (Rec: 10/06/24 12:57 EW [id number]) 6 Minute Walk Test Date Performed 10/06/24 Time Performed 12:30 Height 5 ft 1 in Weight: 240 lb Weight in Pounds [address]: Arnav Assistive device None used: Pre-test Oxygen Delivery Room Air Method Pulse Ox (%) 98 Pulse Rate (60-100 95 beats/min) Dyspnea Wilder Scale ( 2 0-10) Exertion Wilder Scale 6 (6-20) 1st minute Oxygen Delivery Room Air Method Pulse Ox (%) 95 Pulse Rate (60-100 113 H beats/min) 2nd minute Oxygen Delivery Room Air Method Pulse Ox (%) 95 Pulse Rate (60-100 122 H beats/min) 3rd minute Oxygen Delivery Room Air Method Pulse Ox (%) 95 Pulse Rate (60-100 127 H beats/min) 4th minute Oxygen Delivery Room Air Method Pulse Ox (%) 96 Pulse Rate (60-100 131 H beats/min) 5th minute Oxygen Delivery Room Air Method Pulse Ox (%) 97 Pulse Rate (60-100 130 H beats/min) 6th minute Oxygen Delivery Room Air Method Pulse Ox (%) 93 Pulse Rate (60-100 134 H beats/min) Post-test Oxygen Delivery Room Air Method Pulse Ox (%) 98 Pulse Rate (60-100 111 H beats/min) Dyspnea Wilder Scale ( 3 0-10) Exertion Wilder Scale 12 (6-20) Full Laps Walked 16 Partial Lap, Number 0 of Tiles Walked Total Distance 944 Walked (ft) Interpretation Interpretation: The patient ambulated 944 feet over the course of 6 minutes beginning on room air without assistive devices. Pretesting oxygen saturation was noted to be 98% on room air. With ambulation, the penelope oxygen saturation was 93%. This represents a significant exertional oxygen desaturation, consistent with a pulmonary limitation to exercise tolerance. Recommendations Recommendations: There is no indication for the use of supplemental oxygen at this time. However, close interval follow-up is recommended, given the degree of oxygen desaturation noted during this study.
== END | disposition home or self-care (01) ==
LOC: PSN 12:28
PROVIDERS: PCP Nurse Practitioner Adult Health; Referring Provider Nurse Practitioner Family; Visit Provider Nurse Practitioner Family
DX: J45.909 Unspecified asthma, uncomplicated (principal)
CPT/HCPCS: 94618

== ENCOUNTER → 2024-10-23 | Outpatient (CLI) | payer MEDICAID, SELFPAY ==
[2024-10-23] MEDS: Zaleplon 5 MG Capsule 10 MG PO (21:35)
== END | disposition home or self-care (01) ==
LOC: SL 20:10
PROVIDERS: PCP Nurse Practitioner Adult Health; Referring Provider Nurse Practitioner Family; Visit Provider Nurse Practitioner Family
DX: G47.33 Obstructive sleep apnea (adult) (pediatric) (principal)
CPT/HCPCS: 95811

== ENCOUNTER 2024-11-03 21:00 | Emergency (ER) | payer MEDICAID, SELFPAY ==
[2024-11-03 21:01] VITALS: BP 157/111; PULSE 114; RESP 20; TEMP 36.2; O2SAT 99; BMI 46.3
--- NOTE | 2024-11-03 21:36 | EDS_ITS ---
HPI History of Present Illness Chief Complaint: Hyperglycemia Informant: patient Onset/Context/Timing Onset: Days (3) Context: Gradual Onset Timing: Continuous Quality: Shaky, dizzy Location: Generalized Worsened by: Nothing Relieved by: Nothing Narrative Narrative: Patient presents with elevated blood sugars that have been getting progressively worse over the past 3 days. Patient states that today her blood sugar was up to 422. Patient states when she woke up it was 165. Patient states that sometimes her glucometer only reads high. Patient was recently started on Advair. Patient admits to some subjective fevers. Patient admits to some nausea. Patient denies any dysuria or hematuria. Patient denies any urinary frequency. Patient denies any abdominal pain. Patient does admit to some pain in her neck or back. Patient denies any visual changes. [facility] Medical History Anxiety Loose, teeth Post-menopausal Insulin dependent diabetes mellitus History of renal disease Uses wheelchair Substance abuse Marijuana use Alcohol use Cirrhosis Fatty liver High cholesterol Chronic headaches Syncope Neuroendocrine carcinoma Dietary restriction History of GI bleed Former smoker CPAP (continuous positive airway pressure) dependence Asthma On home oxygen therapy Shortness of breath on exertion History of edema History of echocardiogram Hypertension Primary malignant neuroendocrine tumor of stomach Left carpal tunnel syndrome Right carpal tunnel syndrome Right wrist pain History of alcoholism Fatigue Hyperkalemia Noncompliance with medication regimen Depression Back pain Bloody stool Thyroid disease Anemia Arthritis Morbid obesity Hyperlipidemia Hypothyroidism Home Medications ?Medication ?Instructions ?Recorded ?Last Taken ?Type blood-glucose meter,continuous #1 ea 02/18/23 Unknown Rx (Dexcom G7 Nuisance Wildlife Specialist) blood-glucose sensor (Dexcom G7 #3 ea 02/18/23 Unknown Rx Sensor device) acetaminophen 500 mg tablet 500 - 1,000 mg PO Q6H PRN fever or 04/18/23 03/03/24 History pain blood sugar diagnostic (OneTouch #100 ea 09/23/23 Unkn own Rx Verio test strips) levothyroxine 200 mcg tablet 200 mcg PO DAILY hypothyr oidism 09/23/23 03/03/24 Rx #90 tabs fluoxetine 40 mg capsule 40 mg PO DAILY depression Unknown History insulin regular hum U-500 conc 500 100 unit (0.2 mL) s ubcut TID DM 03/12/24 Unknown Rx unit/mL(3 mL) subcut pen (Humulin #18 mL R U-500 (Conc) Insulin Kwikpen) pantoprazole 40 mg tablet,delayed 40 mg PO BID 30 days #60 tabs 04/07/24 Unknown Rx release sucralfate 1 gram tablet 1 g PO 1HR_ACHS 14 days #42 tabs 04/07/24 Unknown Rx fenofibrate nanocrystallized 48 mg 48 mg PO QHS 1 saray h #30 tabs 05/09/24 Unknown Rx tablet dulaglutide 4.5 mg/0.5 mL 4.5 mg subcut NARVAEZ 07/28/24 History subcutaneous pen injector (Trulicity) lancets 30 gauge (Easy Touch #100 ea 09/24/24 Unknown Rx Lancets) cholecalciferol (vitamin D3) 1,250 1,250 mcg PO QWEEK 09/30/24 Unknown History mcg (50,000 unit) capsule ferrous sulfate 325 mg (65 mg 325 mg PO QODAY 09/30/24 Unknown History iron) tablet gabapentin 300 mg capsule 300 mg PO TID 30 days #90 ca ps 09/30/24 Unknown Rx oxycodone-acetaminophen 5 mg-325 1 tab PO Q6H PRN pain 3 days #12 09/30/24 Unknown Rx mg tablet (Percocet) tabs albuterol sulfate 90 mcg/actuation 2 inh inhalation Q4 -6H PRN 10/30/24 Unknown Rx aerosol inhaler shortness of breath or wheez ing #8.5 grams fluticasone 500 mcg-salmeterol 50 1 inh inhalation Q12 H #60 ea 10/30/24 Unknown Rx mcg/dose blistr powdr for inhalation (Advair Diskus) ciprofloxacin HCl 500 mg tablet 500 mg PO BID #6 TABLE TS 11/03/24 Unknown Rx Allergy/AdvReac Type Severity Reaction Status Date / Time codeine Allergy Angioedema Verified 11/03/24 21:01 nitrofurantoin Allergy edema Verified 11/03/24 21:01 Penicillins Allergy Rash Verified 11/03/24 21:01 Sulfa (Sulfonamide Allergy Rash Verified 11/03/24 21:01 Antibiotics) sulfamethoxazole (Bactrim) Allergy Unknown Verified 11/03/24 21:01 trimethoprim (Bactrim) Allergy Unknown Verified 11/03/24 21:01 Family History Father Cancer Mother Diabetes Grandfather Heart disease Grandmother CVA (cerebral vascular accident) Surgical History Hx of dilation and curettage Hx laparoscopic cholecystectomy Hx of colonoscopy History of esophagogastroduodenoscopy (EGD) Social History household members: none housing: apartment pets and animals: No Smoking Status: Former smoker Tobacco: How many years used: 2 alcohol intake: former details: Quit 2000 substance use type: does not use caffeine: Yes Type: tea ROS ROS ED Constitutional Constitutional ED: Reports fever(s) and subjective; Denies chills Eyes Eyes: Denies blurry vision or change in vision ENT ENT ED: Denies rhinorrhea or sore throat Cardiovascular Cardiovascular: Denies chest pain or palpitations Respiratory/Chest Respiratory/Chest: Denies cough or dyspnea Gastrointestinal Gastrointestinal: Reports nausea; Denies vomiting Genitourinary Genitourinary ED: Denies dysuria or hematuria Musculoskeletal Musculoskeletal: Reports back pain and neck pain Integumentary Denies abscess or rash Neurologic Neurologic: Reports headache(s); Denies weakness Allergic/Immunologic Allergic/Immunologic ED: Denies mouth swelling or urticaria EXAM Physical Exam Const Vital Signs: 11/03/24 21:01 11/03/24 21:57 Temperature 97.2 F L Temperature Source Temporal Pulse Rate 114 H Respiratory Rate 20 H Respiratory Effort Normal Respiratory Pattern Normal Blood Pressure 157/111 H Blood Pressure Mean 126 Pulse Ox 99 Oxygen Delivery Method Room Air Positive well nourished and well developed Constitutional Narrative: BMI is 46.3. General Appearance ED: well developed and NAD HEENT Reports moist mucous membranes Neck supple and no JVD Resp normal respiratory effort and clear to auscultation bilaterally Cardio regular rate and regular rhythm GI non-tender and non-distended Palpation: soft Neuro oriented x3, CN's II-XII intact bilaterally and no sensory deficits noted Sensorium / Orientation: alert Motor Exam: strength 5/5 throughout Psych mental status grossly normal MDM MDM MDM Narrative Medical decision making narrative: Differential diagnosis includes diabetic ketoacidosis, hyperglycemia, electrolyte abnormality, urinary tract infection, pneumonia, hyperosmolar hyperglycemic nonketotic state, and dehydration. CBC will be obtained to assess for leukocytosis and anemia. Basic metabolic profile will be obtained to assess for electrolyte abnormality, hyperglycemia, and renal function. Urinalysis will be obtained to assess for urinary tract infection and hematuria. Serum ketones will be obtained to assess for diabetic ketoacidosis. Lab Data Attestation: I reviewed the patient's lab results. Lab results narrative: CBC was reviewed. There is a mild anemia with a hemoglobin of 11.7 and hematocrit of 36.1. The remainder is within normal limits. Basic metabolic profile was reviewed. Glucose was elevated at 391. Sodium was slightly low at 132. BUN was slightly elevated at 24. The remainder is within normal limits. Beta hydroxybutyrate was reviewed and was normal at 0.1. Urinalysis was reviewed. Leukocyte esterase was 25. There are 25-50 red blood cells and 25-50 white blood cells. There is 1+ bacteria noted. Glucose was 1000. Occult blood was 150. Labs: Laboratory Results - last 24 hr 11/03/24 11/03/24 21:53 22:10 WBC 9.5 RBC 4.62 Hgb 11.7 L Hct 36.1 L MCV 78.1 L MCH 25.3 L MCHC 32.4 RDW Std Deviation 43.0 RDW Coeff of [place] 15.3 H Plt Count 203 MPV 9.9 Immature Gran % (Auto) 1.800 H Neut % (Auto) 58.9 Lymph % (Auto) 31.4 [place] % (Auto) 5.3 Eos % (Auto) 1.9 Baso % (Auto) 0.7 Absolute Neuts (auto) 5.6 Absolute Lymphs (auto) 2.97 Nucleated RBC % 0 Sodium 132 L Potassium 4.9 Chloride 98 Carbon Dioxide 25.3 Anion Gap 8 BUN 24 H Creatinine 1.02 Estim Creat Clear Calc 70.28 Est GFR (MDRD) Non-Af 64 BUN/Creatinine Ratio 23.0 H Glucose 391 H Calcium 9.3 b-Hydroxybutyric mmol/L 0.1 Urine Color Yellow Urine Clarity Clear Urine pH 6.0 Ur Specific [place] 1.015 Urine Protein 30 H Urine Glucose (UA) 1000 H Urine Ketones Negative Urine Occult Blood 150 H Urine Nitrite Negative Urine Bilirubin Negative Urine Urobilinogen Normal Ur Leukocyte Esterase 25 H Urine RBC 25-50 SEEN Urine WBC 25-50 SEEN Ur Squamous Epith Cells 0-5 SEEN Urine Bacteria 1+ Urine Mucus 0 SEEN Treatment and Re-Evaluation :: Patient was given IV fluids. Patient was advised of her findings. Patient was given a prescription for Cipro. Patient was instructed to drink plenty of fluids. Patient was instructed to continue to monitor her blood sugars at home. Patient was instructed to return if worse in any way. Patient understood and was agreeable with the plan. All questions were answered. Discharge Plan Triage Chief Complaint: Hyperglycemia ED Provider: [place] Dx/Rx/DC Orders Clinical Impression: Urinary tract infection, Hyperglycemia, Diabetes Instructions: ED Diabetic Hyperglycemia, ED Cystitis Female Adult Prescriptions: New ciprofloxacin HCl 500 mg tablet 500 mg PO BID Qty: 6 0RF No Action (DME) Dexcom G7 Sensor Device See Rx Instructions .Route Qty: 3 5RF Rx Instructions: 1 sensor q 10 days (DME) Dexcom G7 Nuisance Wildlife Specialist Misc See Rx Instructions .Route Qty: 1 0RF Rx Instructions: As directed (DME) OneTouch Verio test strips Strip See Rx Instructions .Route Qty: 100 5RF Rx Instructions: 4x/day levothyroxine 200 mcg tablet 200 mcg PO DAILY Qty: 90 1RF Humulin R U-500 (Conc) Kwikpen 500 unit/mL (3 mL) insulin pen 100 unit subcut TID Qty: 18 5RF Rx Instructions: Increase by 10u/meal if glucose >[address] Cervantes's office, hold if glucose <100. fluoxetine 40 mg capsule 40 mg PO DAILY albuterol sulfate 90 mcg/actuation HFA aerosol inhaler 2 inh inhalation Q4-6H PRN (Reason: shortness of breath or wheezing) Qty: 8.5 0RF fluticasone propion-salmeterol [Advair Diskus] 500-50 mcg/dose blister with device 1 inh inhalation Q12H Qty: 60 5RF (DME) lancets [Easy Touch Lancets] 30 gauge misc See Rx Instructions .Route Qty: 100 5RF Rx Instructions: TID acetaminophen 500 mg tablet 500 - 1,000 mg PO Q6H PRN (Reason: fever or pain) Trulicity 4.5 mg/0.5 mL pen injector 4.5 mg subcut NARVAEZ ferrous sulfate 325 mg (65 mg iron) tablet 325 mg PO QODAY cholecalciferol (vitamin D3) 1,250 mcg (50,000 unit) capsule 1,250 mcg PO QWEEK oxycodone-acetaminophen [Percocet] 5-325 mg tablet 1 tab PO Q6H PRN (Reason: pain) 3 Days Qty: 12 0RF gabapentin 300 mg capsule 300 mg PO TID 30 Days Qty: 90 0RF sucralfate 1 gram Tablet 1 g PO 1HR_ACHS 14 Days Qty: 42 0RF pantoprazole 40 mg Tablet,Delayed Release (Dr/Ec) 40 mg PO BID 30 Days Qty: 60 2RF fenofibrate nanocrystallized 48 mg tablet 48 mg PO QHS 30 Days Qty: 30 5RF Primary Care Provider: OLU ORTIZ Referrals: OLU ORTIZ CRNP [Primary Care Provider] - 5-7 Days Print Language: Slovenian Disposition Disposition: Home, Self Care
[2024-11-03] MEDS: 0.9% Normal Saline (1000mL) 1,000 ML 1000 ML IV (21:54)
[2024-11-03 22:01] LABS: Absolute Lymphocyte Count 2.97 X10^3/uL (0.83-4.51); Absolute Neutrophil Count 5.6 X10^3/uL (2.0-7.7); Basophil# 0.07 X10^3/uL; Basophil% 0.7 % (0-1); Eosinophil# 0.18 X10^3/uL; Eosinophils% 1.9 % (0-5); Hematocrit 36.1 % (37-47); Hemoglobin 11.7 g/dL (12.0-15.0); Lymphocyte # 2.97 X10^3/ul (0.83-4.51); Lymphocyte % 31.4 % (19-41); Mean Corp Hgb Conc 32.4 g/dL (32-36); Mean Corpuscular Hgb 25.3 pg (27.0-32.0); Mean Corpuscular Volume 78.1 fL (81-99); Mean Platelet Vol. 9.9 fl (6.2-12.0); Monocyte% 5.3 % (0-10); NRBC Flagged by Analyzer 0 % (0-5); Neutrophil # 5.58 X10^3/uL (2.7-7.7); Neutrophil % 58.9 % (47-70); Platelet Count 203 K/mm3 (150-450); RBC Distribution Width CV 15.3 % (11.6-14.6); Red Blood Count 4.62 M/mm3 (4.2-5.4); White Blood Count 9.5 K/mm3 (4.4-11.0)
[2024-11-03 22:25] LABS: Anion Gap 8 (5-15); BETA-HYDROXYBUTYRATE 0.1 mmol/L (0.0-0.3); BUN 24 mg/dL (4-19); Calcium,Total 9.3 mg/dL (7.6-11.0); Carbon Dioxide 25.3 mmol/L (21.0-32.0); Chloride 98 mmol/L (98-108); Creatinine, Serum 1.02 mg/dL (0.70-1.20); EST Glomerular Filtration Rate 64 (>60); Estimated Creatinine Clearance 70.28 ml/min (50-250); Glucose 391 mg/dL (70-99); Potassium 4.9 mmol/L (3.3-5.1); Sodium Level 132 mmol/L (133-145)
[2024-11-03 22:29] LABS: Color, Urine Yellow (Yellow); Glucose, Dipstick 1000 mg/dl (Normal); Ketone-Dipstick Negative (Negative); Leukocyte Esterase-Dipstick 25 /ul (Negative); Mucous, Urine 0 SEEN /hpf (<or=2+); Nitrite-Dipstick Negative (Negative); Occult Blood-Urine 150 /ul (Negative); Protein-Dipstick 30 mg/dl (Negative); Specific Gravity, Urine 1.015 (1.002-1.030); Urine Bilirubin Dipstick Negative (Negative); Urine Clarity Clear (Clear); Urine Urobilinogen Normal (Normal)
[2024-11-03 22:43] LABS: Red Blood Cells-Urine 25-50 SEEN /hpf (0-5); Squamous Epithelial Cells - UA 0-5 SEEN /hpf (5-10); White Blood Cells 25-50 SEEN /hpf (0-5)
[2024-11-03 22:45] LABS: Bacteria 1+ /hpf (None Seen)
[2024-11-03] MEDS: Ciprofloxacin 500 MG Tablet PO (23:12)
[2024-11-03] MEDS: Insulin Lispro 100 UNIT/ML INSULN.PEN 10 UNIT SC (23:12)
[2024-11-03 23:17] VITALS: BP 106/85; PULSE 98; RESP 18; TEMP 36.3; O2SAT 97
== END 2024-11-03 23:18 | disposition home or self-care (01) ==
PROVIDERS: Emergency Provider Emergency Medicine; PCP Nurse Practitioner Adult Health; Visit Provider Emergency Medicine
DX: E11.65 Type 2 diabetes mellitus with hyperglycemia (principal); Z79.4 Long term (current) use of insulin; N39.0 Urinary tract infection, site not specified; I10 Essential (primary) hypertension; E03.9 Hypothyroidism, unspecified; E78.00 Pure hypercholesterolemia, unspecified; Z79.85 Long-term (current) use of injectable non-insulin antidiabetic drugs; Z79.890 Hormone replacement therapy; Z79.899 Other long term (current) drug therapy; Z87.891 Personal history of nicotine dependence
CPT/HCPCS: 80048; 81001; 82010; 85025; 87077; 87086; 87088; 96360; 99283; A4216

== ENCOUNTER → 2024-11-12 | Outpatient (CLI) | payer MEDICAID, SELFPAY | END | disposition home or self-care (01) | LOC: SL 11:01 | PROVIDERS: PCP Nurse Practitioner Adult Health; Referring Provider Nurse Practitioner Family; Visit Provider Nurse Practitioner Family | DX: Z00.00 Encounter for general adult medical examination without abnormal findings (principal) ==

== ENCOUNTER 2025-01-10 22:13 | Inpatient (IN) | payer MEDICAID, SELFPAY ==
[2025-01-10] VITALS (7 sets, daily range): BP systolic 131–167; BP diastolic 68–77; PULSE 103–124; RESP 16–32; TEMP 37.1; O2SAT 95–100; BMI 46.1
--- NOTE | 2025-01-10 22:21 | CT_ITS ---
PROCEDURE: ABDOMEN/PELVIS WITHOUT CONT 01/10/2025 REASON FOR EXAM: PAIN TECHNIQUE: ABDOMEN/PELVIS WITHOUT CONT Noncontrast technique limits evaluation of the abdominal and pelvic viscera. Coronal and Sagittal reconstruction series were provided. One or more dose reduction techniques were used (e.g., Automated exposure control, adjustment of the mA and/or kV according to patient size, use of iterative reconstruction technique). COMPARISON: None FINDINGS: CT SCAN OF THE ABDOMEN AND PELVIS WITHOUT ORAL OR IV CONTRAST. CLINICAL INDICATION: Abdominal pain TECHNIQUE: Axial and reformatted sagittal and coronal images of the abdomen pelvis obtained without IV contrast administration. COMPARISON: None. FINDINGS: The visualized lung bases are unremarkable. The heart is normal in size. The tiny arteries are calcified. The mitral valve is calcified. The liver is enlarged. Normal gallbladder and extrahepatic biliary system. The spleen is enlarged. Multiple calcified granulomas are seen in its parenchyma. Normal pancreas. Normal bilateral adrenal glands. Normal size of the right kidney. There is no right renal mass. There are no right renal calculi. There is no right hydronephrosis. Normal visualized right ureter. Normal size of the left kidney. There is no left renal mass. 3 mm stone is seen in the middle pole of the left kidney. There is no left hydronephrosis. Normal visualized left ureter. Normal visualized stomach. Normal small intestine. Fecal stasis is seen in the large bowel. The appendix is visualized and appears normal. There is no demonstrated peritoneal fluid. Normal abdominal aorta. Normal inferior vena cava. Normal retroperitoneum. Normal urinary bladder. There is no pelvic mass lesion or lymphadenopathy. There is no pelvic fluid. An IUD is seen in the position. Small calcified Normal abdominal wall. Normal osseous structures. CT/Abdomen/Pelvis without Cont IMPRESSION: No acute intra-abdominal process. Hepatosplenomegaly. Status post cholecystectomy. Fecal stasis, a component of constipation. [facility]
[2025-01-10 22:33] LABS: Mucous, Urine 0 SEEN /hpf (<or=2+); Squamous Epithelial Cells - UA 0 SEEN /hpf (5-10)
--- NOTE | 2025-01-10 22:37 | EDS_ITS ---
HPI HPI - Female History of Present Illness Chief Complaint: Complaint Narrative Narrative: Chief complaint and HPI: Lower abdominal pain. 59-year-old female with past medical history of chronic hypoxia on 2 to 3 L nasal cannula, CKD, HTN, DM presents for evaluation of lower abdominal pain. Associated symptoms are urinary frequency, hesitancy, and urgency. Onset of symptoms today. Denies any dysuria or hematuria. Denies any fever, chills, shortness of breath, chest pain, back pain, nausea, vomiting, diarrhea. Patient does endorse constipation. Has a past medical history of urolithiasis. Review of systems: See HPI Medications: As listed on the chart Allergies: As listed on the chart PFSH: Per chart Vital signs: As listed on the chart. Reviewed. Physical exam: Gen: A&O x3, NAD Head: Normocephalic, atraumatic Eyes: No sclera icterus, conjunctiva clear ENT: Moist mucous membranes Neck: Trachea midline, No JVD CV: RRR, no murmurs, no peripheral edema Resp: Lungs CTA BL, no w/r/c, on baseline 3 L nasal cannula GI: Abd soft, non-distended, non-tender, no r/r/g : No CVA tender Musc: Full ROM, no deformity Skin: Warm, dry Neuro: Alert, oriented, grossly intact, sensation intact Psych: Cooperative, appropriate mood and affect [facility] Medical History Anxiety Loose, teeth Post-menopausal Insulin dependent diabetes mellitus History of renal disease Uses wheelchair Substance abuse Marijuana use Alcohol use Cirrhosis Fatty liver High cholesterol Chronic headaches Syncope Neuroendocrine carcinoma Dietary restriction History of GI bleed Former smoker CPAP (continuous positive airway pressure) dependence Asthma On home oxygen therapy Shortness of breath on exertion History of edema History of echocardiogram Hypertension Primary malignant neuroendocrine tumor of stomach Left carpal tunnel syndrome Right carpal tunnel syndrome Right wrist pain History of alcoholism Fatigue Hyperkalemia Noncompliance with medication regimen Depression Back pain Bloody stool Thyroid disease Anemia Arthritis Morbid obesity Hyperlipidemia Hypothyroidism Home Medications ?Medication ?Instructions ?Recorded ?Last Taken ?Type blood-glucose sensor (Dexcom G7 #3 ea 02/18/23 Unknown Rx Sensor device) blood-glucose,drum dyeing machine operator,cont #1 ea 02/18/23 Unknown Rx (Dexcom G7 Charge Account Authorizer) acetaminophen 500 mg tablet 500 - 1,000 mg PO Q6H PRN fever or 04/18/23 03/03/24 History pain blood sugar diagnostic (OneTouch #100 ea 09/23/23 Unkn own Rx Verio test strips) levothyroxine 200 mcg tablet 200 mcg PO DAILY hypothyr oidism 09/23/23 03/03/24 Rx #90 tabs fluoxetine 40 mg capsule 40 mg PO DAILY depression Unknown History insulin regular hum U-500 conc 500 100 unit (0.2 mL) s ubcut TID DM 03/12/24 Unknown Rx unit/mL(3 mL) subcut pen (Humulin #18 mL R U-500 (Conc) Insulin Kwikpen) pantoprazole 40 mg tablet,delayed 40 mg PO BID 30 days #60 tabs 04/07/24 Unknown Rx release sucralfate 1 gram tablet 1 g PO 1HR_ACHS 14 days #42 tabs 04/07/24 Unknown Rx fenofibrate nanocrystallized 48 mg 48 mg PO QHS 1 saray h #30 tabs 05/09/24 Unknown Rx tablet dulaglutide 4.5 mg/0.5 mL 4.5 mg subcut NARVAEZ 07/28/24 History subcutaneous pen injector (Trulicity) lancets 30 gauge (Easy Touch #100 ea 09/24/24 Unknown Rx Lancets) cholecalciferol (vitamin D3) 1,250 1,250 mcg PO QWEEK 09/30/24 Unknown History mcg (50,000 unit) capsule ferrous sulfate 325 mg (65 mg 325 mg PO QODAY 09/30/24 Unknown History iron) tablet gabapentin 300 mg capsule 300 mg PO TID 30 days #90 ca ps 09/30/24 Unknown Rx oxycodone-acetaminophen 5 mg-325 1 tab PO Q6H PRN pain 3 days #12 09/30/24 Unknown Rx mg tablet (Percocet) tabs albuterol sulfate 90 mcg/actuation 2 inh inhalation Q4 -6H PRN 10/30/24 Unknown Rx aerosol inhaler shortness of breath or wheez ing #8.5 grams fluticasone 500 mcg-salmeterol 50 1 inh inhalation Q12 H #60 ea 10/30/24 Unknown Rx mcg/dose blistr powdr for inhalation (Advair Diskus) benzonatate 200 mg capsule 200 mg PO TID PRN cough #20 caps 12/30/24 Unknown Rx Allergy/AdvReac Type Severity Reaction Status Date / Time codeine Allergy Angioedema Verified 01/10/25 22:14 nitrofurantoin Allergy edema Verified 01/10/25 22:14 Penicillins Allergy Rash Verified 01/10/25 22:14 Sulfa (Sulfonamide Allergy Rash Verified 01/10/25 22:14 Antibiotics) sulfamethoxazole (Bactrim) Allergy Unknown Verified 01/10/25 22:14 trimethoprim (Bactrim) Allergy Unknown Verified 01/10/25 22:14 Family History Father Cancer Mother Diabetes Grandfather Heart disease Grandmother CVA (cerebral vascular accident) Surgical History Hx of dilation and curettage Hx laparoscopic cholecystectomy Hx of colonoscopy History of esophagogastroduodenoscopy (EGD) Social History household members: none housing: apartment pets and animals: No Smoking Status: Former smoker Tobacco: How many years used: 2 alcohol intake: former details: Quit 2000 substance use type: does not use caffeine: Yes Type: tea EXAM Physical Exam Const Vital Signs: 01/10/25 22:13 01/10/25 22:43 01/10/25 22:45 Temperature 98.8 F Temperature Source Oral Pulse Rate 124 H 109 H 103 H Respiratory Rate 20 H 16 20 H Blood Pressure 167/77 H 131/68 H 131/68 H Blood Pressure Mean 107 89 89 Pulse Ox 95 99 96 Oxygen Delivery Method Nasal Cannula Room Air Room Air Oxygen Flow Rate (L/min) 3 01/10/25 23:09 01/10/25 23:15 01/10/25 23:30 Temperature Temperature Source Pulse Rate 104 H 103 H 104 H Respiratory Rate 32 H 29 H 23 H Blood Pressure Blood Pressure Mean Pulse Ox 98 99 99 Oxygen Delivery Method Oxygen Flow Rate (L/min) 01/10/25 23:45 01/11/25 00:00 01/11/25 00:15 Temperature Temperature Source Pulse Rate 105 H 102 H 101 H Respiratory Rate 24 H 26 H 27 H Blood Pressure 128/64 H Blood Pressure Mean 81 Pulse Ox 100 99 99 Oxygen Delivery Method Oxygen Flow Rate (L/min) 01/11/25 00:24 Temperature Temperature Source Pulse Rate 99 Respiratory Rate 17 Blood Pressure 128/64 H Blood Pressure Mean 85 Pulse Ox 100 Oxygen Delivery Method Oxygen Flow Rate (L/min) MDM MDM MDM Narrative Medical decision making narrative: 59-year-old female with past medical history of chronic hypoxia on 2 to 3 L nasal cannula, CKD, HTN, DM presents for evaluation of lower abdominal pain. Associated symptoms are urinary frequency, hesitancy, and urgency. Onset of symptoms today. Differential diagnosis includes but is not limited to UTI, urolithiasis, constipation, electrolyte abnormality, NARAYAN. NS bolus, Zofran, Toradol ordered for symptoms. Laboratory workup ordered including CT abdomen pelvis without contrast. On chart review, I will in urgent care on 12/30/2024. At that time she was diagnosed with COVID-19 infection. Patient states the symptoms have all improved. CBC with leukocytosis of 16.5. Patient states she was on steroids last week. No anemia. Platelets unremarkable. UA positive for UTI. Urine culture sent. On chart review, patient has grown E. coli in her previous urine cultures. Both susceptible to Rocephin. Rocephin ordered. L actic acid unremarkable. BMP shows baseline hyponatremia at 130. No NARAYAN. Patient has hyperglycemia of 486. No anion gap. Patient states her sugars have been high since last week being on steroids. UTI likely also contributing. On chart review, patient takes Trulicity as well as Humulin R500 100 unit 3 times daily. States she did take it this evening. Will give 10 units IV insulin and reassess glucose after fluids. CT abdomen pelvis shows a 3 mm left kidney stone however no urolithiasis. No hydronephrosis. Patient has fecal stasis in the large bowel, component of constipation. Hepatosplenomegaly. IUD. Patient's symptoms are likely secondary to UTI. On reevaluation, patient is still tachycardic. Given her tachycardia, leukocytosis, UTI, hyperglycemia, I do think patient would benefit from admission for IV antibiotics. Patient was updated of all results and the plan, she confirmed understanding. Patient discussed with the hospitalist who accepted admission. Impression: 1. UTI 2. Hyperglycemia with history of DM2 3. Constipation Lab Data Labs: Laboratory Results - last 24 hr 01/10/25 01/10/25 22:30 22:37 WBC 16.5 H RBC 5.04 Hgb 12.9 Hct 40.4 MCV 80.2 L MCH 25.6 L MCHC 31.9 L RDW Std Deviation 45.1 H RDW Coeff of [place] 15.7 H Plt Count 236 MPV 10.1 Immature Gran % (Auto) 4.600 H Neut % (Auto) 65.9 Lymph % (Auto) 19.6 [place] % (Auto) 8.1 Eos % (Auto) 1.3 Baso % (Auto) 0.5 Absolute Neuts (auto) 10.9 H Absolute Lymphs (auto) 3.24 Nucleated RBC % 0 Sodium 130 L Potassium 5.1 Chloride 94 L Carbon Dioxide 25.0 Anion Gap 11 BUN 15 Creatinine 0.87 Estim Creat Clear Calc 81.25 Est GFR (MDRD) Non-Af 78 BUN/Creatinine Ratio 17.3 Glucose 486 H* Lactic Acid 2.0 Calcium 9.4 Urine Color Yellow Urine Clarity Cloudy Urine pH 6.0 Ur Specific [place] 1.015 Urine Protein 30 H Urine Glucose (UA) 1000 H Urine Ketones Negative Urine Occult Blood 150 H Urine Nitrite Negative Urine Bilirubin Negative Urine Urobilinogen Normal Ur Leukocyte Esterase 500 H Urine RBC 0-5 SEEN Urine WBC 50-100 SEEN Ur Squamous Epith Cells 0 SEEN Urine Bacteria 4+ Urine Mucus 0 SEEN Radiography Diagnostic Testing: Clinical Impression(s) from Imaging Studies Abdomen/Pelvis CT 01/10/25 22:21 IMPRESSION: No acute intra-abdominal process. Hepatosplenomegaly. Status post cholecystectomy. Fecal stasis, a component of constipation. [facility] Triage Chief Complaint: Complaint ED Provider: Jacobo Solorzano Dx/Rx/DC Orders Primary Care Provider: OLU ORTIZ
[2025-01-10] MEDS: Ketorolac 30 MG/ML Syringe IV (22:43)
[2025-01-10] MEDS: Ondansetron 4 MG/2 ML Vial IV (22:43)
[2025-01-10] MEDS: 0.9% Normal Saline (1000mL) 1,000 ML 999 ML IV (22:43)
--- OUTSIDE RECORDS SUMMARY | 2025-01-10 22:46 | XMS RPT_ITS | CCD ---
Author Organization [facility] CliniSyms Care Team Providers Care Granite Chip Terrazzo Finisher Name Role Phone Papa Douglass MD Primary Care Provider [facility], Keti Unavailable [facility], Jessica Unavailable Dr. Papa Douglass Primary Care Provider Dr. Candy Archuleta Emergency Provider Dr. Irwin Sorensonit Provider Dr. Irwin Sorenson Other Provider Debbie, Dr. Augusta Ferreira Attending Provider Debbie, Dr. Augusta Ferreira Other Provider Papa Douglass MD Primary Care Provider [facility], Keti Unavailable [facility], Jessica Unavailable Papa Douglass MD Primary Care Provider [facility], Keti Unavailable [facility], Jessica Unavailable Dr. Papa Douglass Primary Care Provider Dr. Candy Archuleta Emergency Provider Dr. Irwin Sorenson Admit Provider Dr. Irwin Sorenson Other Provider Debbie, Dr. Augusta Ferreira Attending Provider Debbie, Dr. Augusta Ferreira Other Provider Papa Douglass MD Primary Care Provider [facility], Keti Unavailable [facility], Jessica Unavailable Dr. Papa Douglass Primary Care Provider Dr. Papa Douglass Referring Provider Vidal PRIMARY HEALTH CARE NURSE-C Jaziel Attending Provider Dr. Candy Archuleta Emergency Provider Dr. Cecilia Villa Admit Provider Dr. Cecilia Villa Attending Provider Dr. Cecilia Villa Other Provider Dr. Nathalie Kelsey Attending Provider Dr. Sergo Bustillos Attending Provider Dr. Sergo Bustillos Other Provider MAST GOLD BLOWER-DRILL HAND, VERO Primary Care Physician Papa Douglass MD Primary Care Provider MAST GOLD BLOWER-DRILL HAND, VERO Attending Unavailabl e MAST GOLD BLOWER-DRILL HAND, EVRO Primary Care Unavailabl e VIDAL ROSSC, JAZIEL Attending Unavailable MAST GOLD BLOWER-DRILL HAND, VERO Primary Care Unavailabl e [place] GOLD BLOWER-DRILL HAND, KURT Attending Unava ilable MAST GOLD BLOWER-DRILL HAND, VERO Primary Care Unavailabl e [place] GOLD BLOWER-DRILL HAND, KURT Attending Unava ilable MAST GOLD BLOWER-DRILL HAND, VERO Primary Care Unavailabl e MAST GOLD BLOWER-DRILL HAND, VERO Attending Unavailabl e MAST GOLD BLOWER-DRILL HAND, VERO Primary Care Unavailabl e MAST GOLD BLOWER-DRILL HAND, VERO Attending Unavailabl e MAST GOLD BLOWER-DRILL HAND, VERO Primary Care Unavailabl e MAST GOLD BLOWER-DRILL HAND, VERO Attending Unavailabl e MAST GOLD BLOWER-DRILL HAND, VERO Primary Care Unavailabl e [place] GOLD BLOWER-DRILL HAND, KURT Attending Unava ilable MAST GOLD BLOWER-DRILL HAND, VERO Primary Care Unavailabl e TANMAY BRODERICK, DR URSULA Vital Attending Unavailabl e MAST GOLD BLOWER-DRILL HAND, VERO Primary Care Unavailabl e DR CINDY ROGERS DO Attending Unavailable MAST GOLD BLOWER-DRILL HAND, VERO Primary Care Unavailabl e MAST GOLD BLOWER-DRILL HAND, VERO Attending Unavailabl e MAST GOLD BLOWER-DRILL HAND, VERO Primary Care Unavailabl e MAST GOLD BLOWER-DRILL HAND, VERO Attending Unavailabl e MAST GOLD BLOWER-DRILL HAND, VERO Primary Care Unavailabl e MAST GOLD BLOWER-DRILL HAND, VERO Attending Unavailabl e MAST GOLD BLOWER-DRILL HAND, VERO Primary Care Unavailabl e MAST GOLD BLOWER-DRILL HAND, VERO Attending Unavailabl e MAST GOLD BLOWER-DRILL HAND, VERO Primary Care Unavailabl e [facility], Keti Unavailable [facility], Jessica Unavailable Mast PRIMARY HEALTH CARE NURSE, Vero Primary Care Provider Unavailabl e Iscmichelleus [facility], Joseluis S Unavailable Quentin RN, Natalya Unavailable Unavailable Owen DINEROW, Rylee Unavailable Unavailable Tk LACKEY, Crystal Unavailable Unavail able Jaziel Drake MD Unavailable [phone] Sesar MEJÍA, Mari Unavailable Unavailable [place] GOLD BLOWER-DRILL HAND, KURT Attending Unava ilable MAST GOLD BLOWER-DRILL HAND, VERO Primary Care Unavailabl e MAST GOLD BLOWER-DRILL HAND, VERO Primary Care Unavailabl e OZ BRODERICK, AMADOU Givens Attending Unavailable MAST GOLD BLOWER-DRILL HAND, VERO Primary Care Unavailabl e [place] GOLD BLOWER-DRILL HAND, CORTNY Attending Unava ilable Jame RN, Gia Unavailable Unavailable Jame RN, Gia Unavailable Unavailable Mast DRILL HAND, Vero Unavailable [place]annhof GOLD BLOWER.DRILL HAND, Coco Unavailable Enrique GOLD BLOWER.DRILL HAND, Feliciano Unavailable MAST GEOSPATIAL SCIENTIST, VERO Primary Care Provider Dr. Ralph Singh MD Attending Provider Dr. Ralph Singh MD Referring Provider MAST GEOSPATIAL SCIENTIST, VERO Referring Provider Vidal SAMUELS-CJaziel Attending Provider Dr. Brayan Cast DO Attending Provider Dr. Brayan Cast DO Referring Provider Dr. Brayan Cast DO Other Provider [phone] Arnav PRIMARY HEALTH CARE NURSE-CElsa Attending Provider Agustina BRODERICK, Dr. Ritchie Attending Provider Agustina BRODERICK, Dr. Ritchie Referring Provider [phone] Arnav PRIMARY HEALTH CARE NURSE-CElsa Referring Provider Dr. Steven Mercado DO Emergency Provider MAST GEOSPATIAL SCIENTIST, VERO Primary Care Provider [phone] Francisco BRODERICK, Dr. Rosas Attending Provider Francisco BRODERICK, Dr. Rosas Referring Provider MAST GEOSPATIAL SCIENTIST, VERO Referring Provider Vidal PRIMARY HEALTH CARE NURSE-CJaziel Attending Provider [phone] MAST GEOSPATIAL SCIENTIST, VERO Primary Care Provider [phone] Francisco BRODERICK, Dr. Rosas Attending Provider Francisco BRODERICK, Dr. Rosas Referring Provider Dr. Steven Mercado DO Attending Provider Arnav PRIMARY HEALTH CARE NURSE-C, Elsa Butler Other Provider Dr. Alberto Qiu DO Attending Provider [phone] Dr. Velasquez Hill DO Emergency Provider MAST GOLD BLOWER-DRILL HAND, VERO Attending Unavailabl e MAST GOLD BLOWER-DRILL HAND, VERO Primary Care Unavailabl e MAST GOLD BLOWER-DRILL HAND, VERO Attending Unavailabl e MAST GOLD BLOWER-DRILL HAND, VERO Primary Care Unavailabl e MAST GOLD BLOWER-DRILL HAND, VERO Attending Unavailabl e MAST GOLD BLOWER-DRILL HAND, VERO Primary Care Unavailabl e MAST GOLD BLOWER-DRILL HAND, VERO Primary Care Unavailabl e MAST GOLD BLOWER-DRILL HAND, VERO Attending Unavailabl e [place] GOLD BLOWER-DRILL HAND, KURT Attending Unava ilable MAST GOLD BLOWER-DRILL HAND, VERO Primary Care Unavailabl e [place] GOLD BLOWER-DRILL HAND, KURT Attending Unava ilable MAST GOLD BLOWER-DRILL HAND, VERO Primary Care Unavailabl e MAST GOLD BLOWER-DRILL HAND, VERO Attending Unavailabl e MAST GOLD BLOWER-DRILL HAND, VERO Primary Care Unavailabl e MAST GOLD BLOWER-DRILL HAND, VERO Attending Unavailabl e MAST GOLD BLOWER-DRILL HAND, VERO Primary Care Unavailabl e MAST GOLD BLOWER-DRILL HAND, VERO Attending Unavailabl e MAST GOLD BLOWER-DRILL HAND, VERO Primary Care Unavailabl e MAST GOLD BLOWER-DRILL HAND, VERO Primary Care Unavailabl e ALDA ABBASI MD Attending Unavail able MAST GOLD BLOWER-DRILL HAND, VERO Attending Unavailabl e MAST GOLD BLOWER-DRILL HAND, VERO Primary Care Unavailabl e [place]annhof GOLD BLOWER.DRILL HAND, Coco Unavailable [phone] Mast PRIMARY HEALTH CARE NURSE, Vero Primary Care Provider Unavailabl e Gilson PETERSEN [facility], Mansour S Unavailable Jaziel Drake MD Unavailable Unavailable MAST GEOSPATIAL SCIENTIST, VERO Primary Care Provider MAST GEOSPATIAL SCIENTIST, VERO Referring Provider [phone] Velasquez Hill DO Attending Provider Neal Florian Attending Provider [phone] MAST, VERO Referring Unavailable MAST, VERO Primary Care Unavailable AGUSTINA, SCOTT Attending Unavailable BLAS ROD Attending Unavailable ISCKARUS, MANSOUR S Referring Unavailable MAST, VERO Primary Care Unavailable BLAS ROD Attending Unavailable ISCKARUS, MANSOUR S Referring Unavailable MAST, VERO Primary Care Unavailable MAST, VERO Primary Care Unavailable MAST, VERO Attending Unavailable AGUSTINA, SCOTT Referring Unavailable MAST, VERO Attending Unavailable AGUSTINA, SCOTT Referring Unavailable MAST, VERO Primary Care Unavailable AGUSTINA, SCOTT Attending Unavailable MAST, VERO Primary Care Unavailable THOMAS MONTERO Referring Unavailable AGUSTINA, SCOTT Referring Unavailable AGUSTINA, SCOTT Attending Unavailable MAST, VERO Primary Care Unavailable MAST, VERO Primary Care Unavailable TADEO KAROLINA A Attending Unavailable TADEO, KAROLINA A Referring Unavailable BLAS ROD Attending Unavailable ISCKARUS, MANSOUR S Referring Unavailable MAST, VERO Primary Care Unavailable MAST, VERO Referring Unavailable AGUSTINA, SCOTT Attending Unavailable MAST, VERO Primary Care Unavailable BLAS ROD Attending Unavailable MAST, VERO Primary Care Unavailable SELF, SELF Referring Unavailable MAST, VERO Primary Care Unavailable TADEO, KAROLINA A Attending Unavailable TADEO, KAROLINA A Referring Unavailable MAST, VERO Primary Care Unavailable BURKARIN, BLAS Attending Unavailable TADEO, KAROLINA A Referring Unavailable MAST, VERO Referring Unavailable MAST, VERO Primary Care Unavailable AGUSTINA, SCOTT Attending Unavailable MAST, VERO Referring Unavailable MAST, VERO Primary Care Unavailable AGUSTINA, SCOTT Attending Unavailable AGUSTINA, SCOTT Attending Unavailable MAST, VERO Primary Care Unavailable AGUSTINA, SCOTT Referring Unavailable AGUSTINA, SCOTT Attending Unavailable MAST, VERO Primary Care Unavailable THOMAS MONTERO Referring Unavailable MAST, VERO Primary Care Unavailable BURLEN, BLAS Referring Unavailable BURLEN, BLAS Attending Unavailable MAST, VERO Referring Unavailable MAST, VERO Primary Care Unavailable AGUSTINA, SCOTT Attending Unavailable Elsa José Referring Unavailable MAST, VERO Primary Care Unavailable Alberto Qiu Attending Unavailable Francisco, Ralph Attending Unavailable MAST, VERO Primary Care Unavailable Francisco, Ralph Referring Unavailable MAST, VERO Referring Unavailable Jaziel Drake Attending Unavailable MAST, VERO Primary Care Unavailable Joseluis Riggins Attending Unavailable Joseluis Riggins Referring Unavailable MAST, VERO Primary Care Unavailable Hamida Saini Attending Unavailable Hamida Saini Admitting Unavailable MAST, VERO Primary Care Unavailable Agustina, Scott Referring Unavailable MAST, VERO Primary Care Unavailable Agustina, Scott Attending Unavailable MAST, VERO Primary Care Unavailable Francisco, Ralph Attending Unavailable Francisco, Ralph Referring Unavailable MAST, VERO Primary Care Unavailable Francisco, Ralph Attending Unavailable Francisco, Ralph Referring Unavailable Friend, Brayan Consulting Unavailable Friend, Brayan Referring Unavailable MAST, VERO Primary Care Unavailable Friend, Brayan Attending Unavailable Hamida Saini Attending Unavailable Saini, Hamida Consulting Unavailable MAST, VERO Primary Care Unavailable Hamida Saini Admitting Unavailable MAST, VERO Primary Care Unavailable Jaziel Drake Attending Unavailable MAST, VERO Referring Unavailable Sergo Bustillos Admitting Unavailable Sergo Bustillos Attending Unavailable Sergo Bustillos F Consulting Unavailable MAST, VERO Primary Care Unavailable Elsa José Referring Unavailable Elsa José Attending Unavailable MAST, VERO Primary Care Unavailable MAST, VERO Primary Care Unavailable Steven Mercado Attending Unavailable Elsa José Referring Unavailable Elsa José Attending Unavailable MAST, VERO Primary Care Unavailable Elsa José Referring Unavailable MAST, VERO Primary Care Unavailable Elsa José Attending Unavailable MAST, VERO Primary Care Unavailable MAST, VERO Referring Unavailable Ralph Snigh Attending Unavailable MAST, VERO Referring Unavailable Elsa José Attending Unavailable MAST, VERO Primary Care Unavailable MAST, VERO Referring Unavailable Jaziel Drake Attending Unavailable MAST, VERO Primary Care Unavailable Law Trinh Attending Unavailable Sergo Bustillos Consulting Unavailable Sergo Bustillos Admitting Unavailable MAST, VERO Primary Care Unavailable MAST, VERO Primary Care Unavailable Ralph Singh Attending Unavailable Francisco, Ralph Referring Unavailable Law Trinh Attending Unavailable Law Trinh Consulting Unavailable Joseluis Riggins Attending Unavailable MAST, VERO Primary Care Unavailable MAST, VERO Referring Unavailable MAST, VERO Referring Unavailable MAST, VERO Primary Care Unavailable Neal Florian Attending Unavailable Friend, Brayan Attending Unavailable Law Trinh Referring Unavailable MAST, VERO Primary Care Unavailable Velasquez Hill Attending Unavailable Elsa José Attending Unavailable Elsa José Referring Unavailable MAST, VERO Primary Care Unavailable Elsa José Attending Unavailable Elsa José Referring Unavailable MAST, VERO Primary Care Unavailable Abram Becker Attending Unavailable MAST, VERO Primary Care Unavailable MAST, VERO Referring Unavailable MAST, VERO Referring Unavailable MAST, VERO Primary Care Unavailable Fabiana Guillermo Attending Unavailabl e MAST, VERO Primary Care Unavailable MAST, VERO Referring Unavailable Ralph Singh Attending Unavailable Elsa José Consulting Unavailable Elsa José Referring Unavailable MAST, VERO Primary Care Unavailable Alberto Qiu Attending Unavailable MAST, VERO Primary Care Unavailable MAST, VERO Referring Unavailable Ralph Singh Attending Unavailable Trena Neff Attending Unavailable MAST, VERO Primary Care Unavailable MAST, VERO Referring Unavailable MAST, VERO Primary Care Unavailable Neal Florian Attending Unavailable MAST, VERO Referring Unavailable MAST, VERO Referring Unavailable Elsa José Attending Unavailable MAST, VERO Primary Care Unavailable Jaziel Drake Attending Unavailable MAST, VERO Referring Unavailable MAST, VERO Primary Care Unavailable MAST, VERO Primary Care Unavailable Friend, Brayan Referring Unavailable Friend, Brayan Attending Unavailable VERO ORTEZ Primary Care Unavailable Ralph Singh Attending Unavailable Ralph Singh Referring Unavailable Allergies Allergy Classification Reported Allergen(s) Allergy Type Date of Onset Reaction(s) Facility (20 sources) Codeine; Translations: [codeine] Drug Allergy 08-01-19 13 Swelling, Swelling (morphologic abnormality) [facility] Work Phone: (20 sources) Nitrofurantoin Drug Allergy 06-14-20 21 Swelling [facility] Work Phone: (8 sources) Penicillins Drug Allergy 04-27-20 10 Rash [facility] (20 sources) Sulfamethoxazole / Trimethoprim; Translations: [sulfamethoxazole-t rimethoprim] Drug Allergy 09-08-19 16 Rash, Blister (morphologic abnormality), Blisters [facility] (17 sources) Penicillins Drug Allergy 04-27-20 10 Rash [facility] (20 sources) Sulfamethoxazole Drug Allergy 02-10-20 22 Unknown [facility] (20 sources) Sulfonamides (Antibiotic); Translations: [Sulfa (Sulfonamide Antibiotics)] Allergy to substance 02-10-20 22 Rash, Unknown [facility] (20 sources) Trimethoprim Drug Allergy 02-10-20 22 Unknown [facility] (18 sources) Penicillins Allergy to substance 06-08-20 22 Rash [facility] (20 sources) Penicillin; Translations: [penicillin] Drug Allergy Eruption of skin (disorder) [facility] (17 sources) Sulfonamide; Translations: [sulfa drugs] Drug allergy [facility] (19 sources) Penicillins Propensity to adverse reactions to drug 05-07-20 24 Rash [facility] (1 source) Codeine Drug Allergy 12-31-19 25 [facility] (1 source) Nitrofurantoin Drug Allergy 12-31-19 25 [facility] (1 source) Penicillins Drug allergy (disorder) 12-31-19 25 [facility] (1 source) Sulfamethoxazole Drug Allergy 12-31-19 25 [facility] (1 source) Trimethoprim Drug Allergy 12-31-19 25 [facility] Medications Current Medications Medication Drug Class(es) Dates Sig (Normalized) Sig (Original) acetaminophen 500 mg oral tablet (20 sources) Start: 04-18-2023 take 500-1000 mg by mouth every six hours as needed for pain Acetaminophen 500 mg tablet Active 500 - 1000 mg PO EVERY 6 HOURS as needed for fever or pain April 18, 2023 12:00am Start: 10-09-2019 acetaminophen (TYLENOL) 325 mg tablet Take 250 mg by mouth as needed. 10/09/2019 Active Start: 10-09-2019 End: 04-18-2023 Acetaminophen 325 MG tablet Discontinued 650 mg PO EVERY 6 HOURS NEEDED as needed for Pain Score 1-10/Temp > 100.7 F October 09, 2019 12:00am April 18, 2023 3:09pm Start: 10-09-2019 End: 04-18-2023 take 650 mg by mouth every six hours as needed Acetaminophen Discontinued 650 MG PO EVERY 6 HOURS NEEDED October 09, 2019 12:00am April 18, 2023 3:09pm Comment on above: Take 250 mg by mouth as needed. acetaminophen 325 mg / oxyCODONE hydrochloride 5 mg oral tablet (8 sources) Opioid Agonist Start: 10-01-19 take 1 tablet by mouth every six hours as needed for pain Oxycodone-Acetaminop hen (Percocet) 5-325 mg tablet Active 1 {tbl} PO EVERY 6 HOURS as needed for pain 12 3 September 30, 2024 Arnuity Ellipta 200 mcg/inh inhalation powder (2 sources) Start: 10-08-19 take 1 dose by inhalation every twenty-four hours Arnuity Ellipta 200 mcg/inh inhalation powder Dose : 200 mcg = 1 inh, Inhalation, q24h, # 30 EA, 0 Refill(s), Pharmacy: [facility] [id number], 159, cm, 10/02/24 9:38:00 EDT, Height, kg, 10/02/24 9:38:00 EDT, Dosing Weight Start Date: 10/07/24 Status: Ordered Quantity: 30.0 Unit: EA Repeat number: 1 atorvastatin 20 mg oral tablet (20 sources) HMG-CoA Reductase Inhibitor Start: 10-06-19 End: 01-09-20 take 1 tablet by mouth once daily Atorvastatin 20 MG tablet Take 1 tablet by mouth daily. 01/14/2024 01/08/2025 Active Start: 08-18-2015 End: 04-11-2018 take 2 tablets by mouth at bedtime Atorvastatin 20 MG tablet Discontinued 40 mg PO AT BEDTIME August 18, 2015 1:00am April 11, 2018 2:09pm Start: 08-18-2015 End: 04-11-2018 take 40 mg by mouth at bedtime Atorvastatin Discontinu ed 40 MG PO AT BEDTIME August 18, 2015 1:00am April 11, 2018 2:09pm Comment on above: Take 1 tablet by jimi th once daily. benoxinate hydrochloride 4 mg/ml / fluorescein sodium 2.5 mg/ml ophthalmic solution (2 sources) Diagnostic Dye Start: 11-29-2022 End: 11-30-2022 fluorescein-benoxi aracely 0.25-0.4 % 1 Drop (FLURESS) Start: 02-27-2022 End: 02-28-2022 fluorescein-benoxinate 0.25- 0.4 % 1 Drop (FLURESS) benzonatate 200 mg oral capsule (17 sources) Non-narcotic Antitussive Start: 12-30-2024 take 1 capsule by mouth three times daily as needed for cough Benzonatate 200 mg capsule Active 200 mg PO THREE TIMES A DAY as needed for cough December 30, 2024 12:00am Start: 03-12-2024 End: 04-04-2024 Benzonatate 200 mg capsule Discontinued 200 mg PO 2 to 3 times per day as needed March 12, 2024 12:00am April 04, 2024 8:09am Start: 01-27-2024 End: 03-04-2024 take 1 capsule by mouth three times daily as needed for cough Benzonatate 200 mg capsule Discontinued 200 mg PO THREE TIMES A DAY as needed for cough January 27, 2024 12:00am March 04, 2024 10:34am Blood-Glucose Meter misc (20 sources) Start: 07-01-2019 Blood-Glucose Meter misc Indications: Uncontrolled type 2 diabetes mellitus with complication, with long-term current use of insulin Use to check blood sugar three times daily. Dx: Type 2 DM - Uncontrolled E11.65 1 Each 07/01/2019 Active Start: 07-01-2019 Blood-Glucose Meter misc Indications: Uncontrolled type 2 diabetes mellitus with complication, with long-term current use of insulin Use to check blood sugar three times daily. Dx: Type 2 DM - Uncontrolled E11.65 1 Each 0 07/01/2019 Active Comment on above: Use to check blood s ugar three times daily. Dx: Type 2 DM - Uncontrolled E11.65 Blood-Glucose Meter,Continuous ([employer] G7 Donor Services Team Leader) misc (8 sources) Start: 02-18-2023 Blood-Glucose Meter,Continuous ([employer] G7 Donor Services Team Leader) misc Active 0 .Route 1 February 18, 2023 12:00am As directed Blood-Glucose Sensor (Dexcom G7 Sensor) device (9 sources) Start: 02-18-2023 Blood-Glucose Sensor (Dexcom G7 Sensor) device Active 0 .Route 3 February 18, 2023 12:00am 1 sensor q 10 days Blood-Glucose,Donor Services Team Leader, Cont (D[employer] G7 Donor Services Team Leader) misc (1 source) Start: 02-18-2023 Blood-Glucose,Donor Services Team Leader ,Cont ([employer]ex[employer] G7 Donor Services Team Leader) misc Active 0 .Route 1 February 18, 2023 12:00am As directed cephalexin 500 mg oral capsule (20 sources) Cephalosporin Antibacterial Start: 02-25-2024 End: 03-03-2024 cephalexin 500 mg oral capsule Dose : 500 mg = 1 cap(s), Oral, TID, X 7 day(s), # 21 cap(s), 0 Refill(s), 03/03/24 2:11:00 PM EDT, 108.5 Start Date: 02/25/24 Stop Date: 03/03/24 Status: Ordered Start: 03-01-2023 End: 03-08-2023 take 1 capsule by mouth four times daily cephALEXin (KEFLEX) 500 mg capsule Take 1 capsule by mouth four times daily for 7 days. 28 capsule 0 03/01/2023 03/08/2023 Active Start: 10-10-2022 End: 04-18-2023 take 1 capsule by mouth every twelve hours Cephalexin 500 mg capsule Discontinued 500 mg PO EVERY 12 HOURS October 10, 2022 12:00am April 18, 2023 3:09pm Start: 06-26-2022 End: 07-03-2022 take 1 capsule by mouth four times daily cephALEXin (KEFLEX) 500 mg capsule Take 1 capsule by mouth four times daily for 7 days. 28 capsule 0 06/26/2022 07/03/2022 Active Comment on above: Take 1 capsule by [facility] four times daily for 7 days. cetirizine hydrochloride 10 mg oral tablet (3 sources) Histamine-1 Receptor Antagonist Start: 06-26-20 End: 07-10-20 take 1 tablet by mouth once daily cetirizine (ZYRTEC) 10 mg tablet Take 1 tablet by mouth once daily for 14 days. 14 tablet 0 06/26/2022 07/10/2022 Active Comment on above: Take 1 tablet by [facility] once daily for 14 days. cholecalciferol 1.25 mg oral capsule (20 sources) Vitamin D Start: 10-01-19 take 1 capsule by mouth every week Cholecalciferol (Vitamin D3) 1,250 mcg (50,000 unit) capsule Active 1250 ug PO EVERY WEEK September 30, 2024 12:00am Start: 07-03-2021 take 1 capsule by [facility] every week cholecalciferol, Vitamin D3, (VITAMIN D3) 1,250 mcg (50,000 unit) cap capsule Indications: Vitamin D deficiency Take 1 capsule by mouth one time a week. 12 capsule 3 07/03/2021 Active Comment on above: Take 1 capsule by [facility] one time a week. ciclopirox 80 mg/ml topical solution (20 sources) Start: 08-18-2021 End: 10-13-2021 Ciclopirox (LOPROX) 8 % solution Indications: Onychomycosis APPLY TO AFFECTED AREA DAILY AT BEDTIME. TO AFFECTED AREA. 6.6 mL 2 10/13/2021 Active Comment on above: Apply to affected ar ea daily at bedtime. TO AFFECTED AREA. CPAP (20 sources) CPAP as directed . Active CPAP as directed . 0 Active Comment on above: as directed. dexamethasone 6 mg oral tablet (17 sources) Corticosteroid Start: 12-30-2024 take 1 tablet by mouth once daily Dexamethasone 6 mg tablet Active 6 mg PO DAILY December 30, 2024 12:00am Start: 03-07-2024 End: 04-04-2024 take 1 tablet by mouth once daily Dexamethasone 6 mg tablet Discontinued 6 mg PO DAILY 12 25March 07, 2024 12:00am April 04, 2024 8:09am Start: 01-22-2024 End: 03-04-2024 take 1 tablet by mouth once daily Dexamethasone 6 mg tablet Discontinued 6 mg PO DAILY January 22, 2024 12:00am March 04, 2024 10:33am DEXCOM G7 HOTEL RECEPTIONIST misc (12 sources) Start: 02-18-2023 DEXCOM G7 RECE IVER misc 02/18/2023 Active Start: 02-18-2023 DEXCOM G7 RECE IVER misc DEXCOM G7 SENSOR nelly (12 sources) Start: 02-18-2023 DEXCOM G7 SENS OR nelly APPLY 1 SENSOR EVERY 10 DAYS 02/18/2023 Active Start: 02-18-2023 DEXCOM G7 SENS OR nelly APPLY 1 SENSOR EVERY 10 DAYS 0 02/18/2023 Active Comment on above: APPLY 1 SENSOR EVERY 10 DAYS diclofenac sodium 75 mg delayed release oral tablet (20 sources) Nonsteroidal Anti-inflammatory Drug Start: 03-30-20 take 1 tablet by mouth twice daily diclofenac EC [address] tablet Take 1 tablet by mouth 2 times daily. 03/30/2024 Active DME [facility] (10 sources) Start: 03-17-20 DME [facility] See Instructions, Carpal Tunnel Brace to right wrist QHS, # 1 EA, 0 Refill(s), Pharmacy: [facility] #[id number], Carpal tunnel syndrome of right wrist Pain and swelling of right wrist, 155, cm, 03/17/24 7:21:00 EDT, Height, 109.3, kg, 03/17/24 7:21:00 EDT, Dosing Weight Start Date: 03/17/24 Status: Ordered Quantity: 1.0 Unit: EA Repeat number: 1 Indications: Carpal tunnel syndrome, right upper limb; Pain in right wrist; Start: 03-17-2024 DME MISCellane ous See Instructions, Carpal Tunnel Brace to right wrist QHS, # 1 EA, 0 Refill(s), Pharmacy: [facility] #[id number], Carpal tunnel syndrome of right wrist Pain and swelling of right wrist, 155, cm, 03/17/24 7:21:00 EDT, Height, 109.3, kg, 03/17/24 7:21:00 EDT, Dosing Weight Start Date: 03/17/24 Status: Ordered Dulaglutide (20 sources) GLP-1 Receptor Agonist Start: 07-28-2024 Dulaglu tide (Trulicity) 4.5 mg/0.5 mL pen injector Active 4.5 mg SC NARVAEZ July 28, 2024 1:00am Start: 06-08-2024 End: 07-28-2024 Dulaglutide (Trulicity) 4.5 mg/0.5 mL pen injector Discontinued 4.5 mg SC EVERY WEEK 2 June 08, 2024 1:00am July 28, 2024 3:38pm Start: 03-12-2024 End: 06-08-2024 Dulaglutide (Trulicity) 3 mg /0.5 mL pen injector Discontinued 3 mg SC EVERY WEEK 2 March 12, 2024 12:00am June 08, 2024 2:24pm Start: 10-07-2023 Trulicity 0.75 MG/0.5ML Solution Auto-injector injection 0.5 mL once a week. 10/07/2023 Active Start: 09-23-2023 End: 03-12-2024 Dulaglutide (Trulicity) 1.5 mg/0.5 mL pen injector Discontinued 1.5 mg SC EVERY WEEK 2 September 23, 2023 10:06am March 12, 2024 8:44am Start: 06-10-2023 End: 09-23-2023 Dulaglutide (Trulicity) 0.75 mg/0.5 mL pen injector Discontinued 0.75 mg SC EVERY WEEK 2 July 25, 2023 11:49am September 23, 2023 10:03am Start: 03-14-2022 End: 06-21-2022 inject 0.75 mg by subcutaneous injection every week dulaglutide (TRULICITY) 0.75 mg/0.5 mL pen injector Inject 0.75 mg subcutaneously one time a week. 4 Each 2 03/14/2022 06/21/2022 Discontinued Comment on above: Inject 0.75 mg subcu taneously one time a week. fenofibrate 48 mg oral tablet (8 sources) Peroxisome Proliferator Receptor alpha Agonist Start: 024 take 1 tablet by mouth at bedtime Fenofibrate Nanocrystallized 48 mg tablet Active 48 mg PO AT BEDTIME May 09, 2024 12:00am ferrous sulfate 325 mg oral tablet (20 sources) Start: 025 take 1 tablet by mouth every other day ferrous sulfate 325 (65 Fe) MG tablet Indications: Iron deficiency anemia, unspecified iron deficiency anemia type Take 1 tablet by mouth every other day. 30 tablet 1 08/28/2024 Active Start: 06-21-2023 End: 08-28-2024 take 1 tablet by mouth three times daily at mealtime ferrous sulfate 325 (65 Fe) MG Tab DR tablet DR Take 1 tablet by mouth 3 times daily with meals. 06/21/2023 08/28/2024 Discontinued Start: 06-21-2023 ferrous sulfat e Oral, 0 Refill(s) Start Date: 06/21/23 Status: Ordered Repeat number: 1 Start: 06-21-2023 ferrous sulfat e Oral, 0 Refill(s) Start Date: 06/21/23 Status: Ordered Start: 04-07-2021 End: 10-31-2022 take 1 tablet by mouth once daily ferrous sulfate 325 mg (65 mg iron) tablet Indications: Iron deficiency anemia secondary to inadequate dietary iron intake TAKE 1 TABLET BY MOUTH EVERY DAY 30 tablet 5 10/23/2022 Active Comment on above: Take 1 tablet by jimi th daily with breakfast. Take 1 tablet by jimi th once daily. TAKE 1 TABLET BY JIMI TH EVERY DAY fluconazole 150 mg oral tablet (1 source) Azole Antifungal Start: 2021 End: 2021 take 1 tablet by mouth once daily fluconazole (DIFLUCAN) 150 mg tablet Take 1 tablet by mouth once daily for 1 day. 1 tablet 0 02/16/2022 02/17/2022 Active Comment on above: Take 1 tablet by jimi th once daily for 1 day. FLUoxetine 40 mg oral capsule (20 sources) Serotonin Reuptake Inhibitor Start: 2018 End: 2024 take 1 capsule by mouth once daily FLUoxetine 40 MG capsule Take 1 capsule by mouth daily. 01/14/2024 01/08/2025 Active Comment on above: Take 1 capsule by [facility] once daily. Fluticasone Propion-Salmeterol (2 sources) Corticosteroid, beta2-Adrenergic Agonist Start: 2024 Fluticasone Propion-Salmeterol (Advair Diskus) 500-50 mcg/dose blister with device Active 1 NMA INHALATION Q12H 60 October 30, 2024 12:00am gabapentin 300 mg oral capsule (10 sources) Anti-epileptic Agent Start: 2024 take 1 capsule by mouth three times daily Gabapentin 300 mg capsule Active 300 mg PO THREE TIMES A DAY September 30, 2024 12:00am hydroCHLOROthiazide 25 mg oral tablet (20 sources) Thiazide Diuretic Start: 2022 take 1 tablet by mouth once daily hydroCHLOROthiazide 25 mg tablet Indications: Bilateral leg edema Take 1 tablet by mouth once daily. 30 tablet 5 11/06/2022 Active Start: 04-05-2021 End: 11-06-2022 take 1 tablet by mouth once daily hydroCHLOROthiazide (HYDRODIURIL, ESIDRIX) 12.5 mg tablet Take 1 tablet by mouth once daily. 30 tablet 04/05/2021 03/19/2022 Discontinued Comment on above: Take 1 tablet by jimi th once daily. 3 ml insulin aspart, human 100 unt/ml pen injector (20 sources) Insulin Analog Start: 05-09-2023 NovoLOG FlexPen 100 UNIT/ML Solution Pen-injector injection Inject 90 Units under the skin. 05/09/2023 Active Start: 04-18-2023 End: 06-03-2023 NovoLOG FlexPen 100 UNIT/ML Solution Pen-injector injection Inject under the skin 3 times daily (take before meals). Sliding scale 05/09/2023 Active Start: 04-18-2023 Insulin Aspart U-100 (Novolog Flexpen U-100 Insulin) 100 unit/mL (3 mL) insulin pen Active 60 - 65 UNIT SC 3 TIMES DAILY WITH MEALS April 18, 2023 12:00am Start: 01-19-2023 End: 07-02-2023 NOVOLOG FLEXPEN U-100 INSULI N 100 unit/mL (3 mL) Indications: Type 2 diabetes mellitus without complication, with long-term current use of insulin (HCC) Use 45-50 units with full meal. Use 10 units with a snack. If exercising after meal, use 38-40 units with that meal. 30 mL 01/19/2023 07/02/2023 Discontinued (Changing Therapy/Dosage Form) Start: 03-16-2022 End: 01-19-2023 NOVOLOG FLEXPEN U-100 INSULI N 100 unit/mL (3 mL) Indications: Type 2 diabetes mellitus without complication, with long-term current use of insulin (HCC) Use 44 units with full meal. Use 10 units with a snack. If exercising after meal, use 38-40 units with that meal. 7 Pen 5 03/19/2022 08/20/2022 Discontinued Start: 10-16-2021 End: 03-14-2022 NOVOLOG FLEXPEN U-100 INSULI N 100 unit/mL (3 mL) Indications: Type 2 diabetes mellitus without complication, with long-term current use of insulin ([facility]) Inject 48 Units subcutaneously twice daily before meals. 30 mL 2 10/16/2021 03/14/2022 Discontinued Start: 09-30-2021 End: 10-16-2021 NOVOLOG FLEXPEN U-100 INSULI N 100 unit/mL (3 mL) INJECT 46 UNITS (0.46 ML) SUBCUTANEOUSLY TWICE A DAY 0 09/30/2021 10/16/2021 Discontinued Comment on above: Inject 48 Units subc utaneously twice daily before meals. INJECT 46 UNITS (0.4 6 ML) SUBCUTANEOUSLY TWICE A DAY Use 44 units with fu ll meal. Use 10 units with a snack. If exercising after meal, use 38-40 units with that meal. Use 45-50 units with full meal. Use 10 units with a snack. If exercising after meal, use 38-40 units with that meal. 3 ml insulin degludec 200 unt/ml pen injector (20 sources) Insulin Analog Start: 10-16-2021 End: 02-12-2022 insulin degludec (TRESIBA FLEXTOUCH U-200) 200 unit/mL (3 mL) injection Indications: Type 2 diabetes mellitus without complication, with long-term current use of insulin ([facility]) Inject 110 Units subcutaneously every morning. 60 mL 3 02/12/2022 Active Start: 06-13-2020 End: 02-18-2023 Insulin Degludec 200 UNIT/ML insulin pen Discontinued 100 U SQ DAILY June 13, 2020 1:00am February 18, 2023 12:07pm Start: 02-12-2019 End: 10-09-2019 Insulin Degludec 100 UNIT/ML insulin pen Discontinued 110 U subcut DAILY February 12, 2019 12:00am October 09, 2019 8:13am Start: 01-24-2017 End: 04-11-2018 Insulin Degludec 100 UNIT/ML insulin pen Discontinued 80 U SQ DAILY January 24, 2017 12:00am April 11, 2018 2:09pm Comment on above: Inject 100 Units sub cutaneously every morning. Inject 110 Units sub cutaneously every morning. 3 ml insulin, regular, human 500 unt/ml pen injector (20 sources) Insulin Start: 03-12-2024 Insulin Regular Hum U-500 Conc (Humulin R U-500 (Conc) Kwikpen) 500 unit/mL (3 mL) insulin pen Active 100 U SC THREE TIMES A DAY 18 March 12, 2024 8:43am Increase by 10u/meal if glucose >[address] Cervantes's office, hold if glucose Start: 03-07-2024 End: 03-12-2024 Insulin Regular Hum U-500 Co nc (Humulin R U-500 (Conc) Kwikpen) 500 unit/mL (3 mL) insulin pen Discontinued 5 U SC THREE TIMES A DAY 23.4 March 07, 2024 3:35pm March 12, 2024 8:45am Increase by 10u/meal if glucose >[address] Cervantes's office, hold if glucose Start: 06-04-2023 HUMULIN R U-50 0, CONC, KWIKPEN 500 unit/mL (3 mL) inpn INJECT 130 UNITS (0.26 ML) SUBCUTANEOUSLY THREE TIMES A DAY 06/04/2023 Active Start: 06-03-2023 End: 03-07-2024 Insulin Regular Hum U-500 Co nc (Humulin R U-500 (Conc) Kwikpen) 500 unit/mL (3 mL) insulin pen Discontinued 130 U SC THREE TIMES A DAY 23.4 September 23, 2023 10:07am March 07, 2024 3:35pm Comment on above: INJECT 130 UNITS (0. 26 ML) SUBCUTANEOUSLY THREE TIMES A DAY ketoconazole 20 mg/ml topical cream (2 sources) Azole Antifungal Start: 09-02-2024 ketoconazole 2% topical cream 0 Refill(s), 106 Start Date: 09/02/24 Status: Ordered Repeat number: 1 lactic acid 40 mg/ml / urea 100 mg/ml topical cream (14 sources) urea 10 % Cream Apply 1 Application topically 2 times daily as needed. Apply to affected area. Active levothyroxine sodium 0.2 mg oral tablet (20 sources) l-Thyroxine Start: 03-02-2024 End: 02-25-2025 levothyroxine 200 mcg (0.2 mg) oral tablet Dose : 200 mcg = 1 tab(s), Oral, qDay, # 30 tab(s), 11 Refill(s), Pharmacy: [facility] [place]/[facility]acy #[id number], 154, cm, 03/02/24 7:12:00 EDT, Height, kg, 03/02/24 7:12:00 EDT, Dosing Weight Start Date: 03/02/24 Stop Date: 02/25/25 Status: Ordered Quantity: 30.0 Unit: tab(s) Repeat number: 12 Start: 06-21-2023 take 1 tablet by jimi th once daily levothyroxine 200 mcg (0.2 mg) oral tablet mcg = tab(s), Oral, qDay, 0 Refill(s) Start Date: 06/21/23 Status: Ordered Start: 02-18-2023 End: 02-25-2025 take 1 tablet by mouth once Levothyroxine 200 MCG tabl et Take 1 tablet by mouth daily. 1.5 on Sundays03/02/2024 02/25/2025 Active Start: 06-21-2022 End: 07-21-2022 take 1 tablet by mouth once daily for thyroid dysfunction levothyroxine (SYNTHROID) 50 mcg tablet Indications: Hypothyroidism, unspecified type Take 1 tablet by mouth once daily. Take on empty stomach. For Thyroid. 30 tablet 5 06/21/2022 Active Start: 03-14-2022 End: 06-21-2022 take 1 tablet by mouth once daily levothyroxine (SYNTHROID) 100 mcg tablet Indications: Acquired hypothyroidism Take 1 tablet by mouth once daily. Take on empty stomach. Take along with 200 mcg pill once daily 90 tablet 3 03/14/2022 06/21/2022 Discontinued Start: 09-09-2020 End: 03-14-2022 levothyroxine (SYNTHROID) 20 0 mcg tablet Indications: Hypothyroidism, unspecified type Take once daily in addition to 150 mcg for thyroid 90 tablet 3 03/14/2022 Active Start: 07-13-2020 End: 03-14-2022 take 1 tablet by mouth once daily levothyroxine (SYNTHROID) 150 mcg tablet Indications: Acquired hypothyroidism Take 1 tablet by mouth once daily. Take on empty stomach. For thyroid. Take along with 200 mcg dose 90 tablet 3 07/13/2020 03/14/2022 Discontinued Start: 10-06-2019 End: 02-18-2023 Levothyroxine 200 MCG tablet Discontinued 350 ug PO DAILY October 06, 2019 12:00am February 18, 2023 12:36pm Start: 10-06-2019 End: 02-18-2023 take 350 ug by mouth once daily Levothyroxine Disconti nued 350 MCG PO DAILY October 06, 2019 12:00am February 18, 2023 12:36pm Start: 08-18-2015 End: 04-11-2018 take 1 tablet by mouth once daily Levothyroxine 300 MCG tablet Discontinued 300 ug PO DAILY August 18, 2015 1:00am April 11, 2018 2:10pm Comment on above: Take 1 tablet by jimi once daily. Take on empty stomach. For thyroid. Take along with 200 mcg dose Take once daily in a ddition to 150 mcg for thyroid Take 1 tablet by jimi th once daily. Take on empty stomach. Take along with 200 mcg pill once daily Take 1 tablet by jimi th once daily. Take on empty stomach. For Thyroid. lidocaine 0.05 mg/mg topical ointment (20 sources) Antiarrhythmic, Amide Local Anesthetic Start: 9 lidocaine (XYLOCAINE) 5 % ointment Apply 1 application to affected area as needed. 30 g 03/04/2019 Active Comment on above: Apply 1 application to affected area as needed. meloxicam 15 mg oral tablet (15 sources) Nonsteroidal Anti-inflammatory Drug Start: 3 take 1 tablet by mouth once daily at mealtime meloxicam (MOBIC) 15 mg tablet Indications: Pain in both hands Take 1 tablet by mouth once daily. Take with food. 30 tablet 1 01/19/2023 Active Comment on above: Take 1 tablet by jimi th once daily. Take with food. naproxen 500 mg oral tablet (20 sources) Nonsteroidal Anti-inflammatory Drug Start: 4 End: 4 naproxen 500 mg oral tablet Dose : 500 mg = 1 tab(s), Oral, BID, X 15 day(s), # 30 tab(s), 0 Refill(s), 9/11/24 8:10:00 AM EDT, Pharmacy: [facility] [place]/pharmacy #[id number], Carpal tunnel syndrome of right wrist Pain and swelling of right wrist, 155, cm, 03/17/24 7:21:00 EDT, Height, kg, 03/17/24 7:21:00 EDT, Dosing Weight Start Date: 03/17/24 Stop Date: 04/01/24 Status: Ordered Start: 10-16-2021 End: 10-30-2021 take 1 tablet by mouth twice daily at mealtime naproxen (NAPROSYN) 500 mg tablet Take 1 tablet by mouth twice daily with meals for 14 days. Take with food. 28 tablet 0 10/16/2021 10/30/2021 Active Start: 01-24-2017 End: 04-11-2018 take 1 tablet by mouth twice daily Naproxen 500 MG tablet Discontinued 500 mg PO TWICE A DAY September 12, 2017 7:43pm April 11, 2018 2:10pm Comment on above: Take 1 tablet by jimi twice daily with meals for 14 days. Take with food. nitrofurantoin, macrocrystals 100 mg oral capsule (13 sources) Nitrofuran Antibacterial Start: 12-02-2024 End: 12-09-2024 nitrofurantoin macrocrystals 100 mg oral capsule Dose : 100 mg = 1 cap(s), Oral, QID, X 7 day(s), # 28 cap(s), 0 Refill(s), 12/09/24 2:14:00 PM EDT, Pharmacy: [facility] [place]/pharmacy #[id number], 150, cm, 12/02/24 13:05:00 EDT, Height, 111.7, kg, 12/02/24 13:05:00 EDT, Dosing Weight Start Date: 12/02/24 Stop Date: 12/09/24 Status: Ordered Quantity: 28.0 Unit: cap(s) Repeat number: 1 Start: 09-04-2022 nitrofurantoin (FURADANTIN) 25 mg/5 mL oral liquid Bring to allergy appointment for medication challenge on 09/13/22. (Do not take at home. ) 25 mL 0 09/04/2022 Active Comment on above: Bring to allergy bong ointment for medication challenge on 09/13/22. (Do not take at home. ) nitrofurantoin, macrocrystals 25 mg / nitrofurantoin, monohydrate 75 mg oral capsule (5 sources) Nitrofuran Antibacterial Start: 03-20-2024 End: 03-27-2024 Macrobid 100 mg oral capsule Dose : 100 mg = 1 cap(s), Oral, BID, Take with food, X 7 day(s), # 14 cap(s), 0 Refill(s), 03/27/24 10:27:00 AM EDT, Pharmacy: [facility] #[id number], Enterococcus UTI, 155, cm, 03/17/24 7:21:00 EDT, Height, 109.3, kg, 03/17/24 7:21:00 EDT, Dosing Weight Start Date: 03/20/24 Stop Date: 03/27/24 Status: Ordered Start: 02-28-2024 End: 03-06-2024 Macrobid 100 mg oral capsule Dose : 100 mg = 1 cap(s), Oral, BID, Take with food, X 7 day(s), # 14 cap(s), 0 Refill(s), 03/06/24 11:04:00 AM EDT, Pharmacy: [facility] [place]/pharmacy #[id number], 152, cm, 02/24/24 9:43:00 EDT, Height, 108.5, kg, 02/25/24 9:12:00 EDT, Dosing Weight Start Date: 02/28/24 Stop Date: 03/06/24 Status: Ordered Start: 01-14-2024 End: 01-19-2024 Macrobid 100 mg oral capsule Dose : 100 mg = 1 cap(s), Oral, BID, Take with food, X 5 day(s), # 10 cap(s), 0 Refill(s), 01/19/24 9:25:00 AM EDT, Pharmacy: [facility] [place]/pharmacy #[id number], 153, cm, 01/14/24 7:37:00 EDT, Height, 112.3, kg, 01/14/24 7:37:00 EDT, Dosing Weight Start Date: 01/14/24 Stop Date: 01/19/24 Status: Ordered Oxygen (11 sources) oxygen gas Inhal e 2 L As directed. Please provide: small portable tanks This order certifies that this patient is under my care and that I, or a Nurse Practitioner or Physician's [employer] Operator had a [id number] Encounter with them. Based upon those findings, the equipment/supplies listed above are medically necessary. Active pantoprazole 40 mg delayed release oral tablet (20 sources) Proton Pump Inhibitor Start: 04-07-20 End: 09-22-19 take 1 tablet by mouth twice daily Pantoprazole [address] tablet DR Take 1 tablet by mouth 2 times daily. 60 tablet 2 06/23/2024 Active Start: 01-19-2023 End: 06-23-2024 take 1 tablet by mouth once daily before breakfast pantoprazole DR (PROTONIX) 40 mg tablet Indications: GERD without esophagitis Take 1 tablet by mouth daily before breakfast. Take on empty stomach, 1/2 hr before meal. 30 tablet 5 01/19/2023 Active Comment on above: Take 1 tablet by jimi th daily before breakfast. Take on empty stomach, 1/2 hr before meal. polyethylene glycol 3350 [id number] mg / potassium chloride 2970 mg / sodium bicarbonate 6740 mg / sodium chloride 5860 mg / sodium sulfate 10876 mg powder for oral solution (5 sources) Osmotic Laxative Start: 05-07-2023 End: 05-07-2023 GAVILYTE-G 236-22.74-6.74 -5.86 gram suspension Take by mouth one time only. 05/07/2023 Active Comment on above: Take 4,000 mL by jimi th one time only for 1 dose. Take by mouth one ti me only. 0.25 mg, 0.5 mg dose 1.5 ml semaglutide 1.34 mg/ml pen injector (20 sources) Start: 10-08-2022 semaglutide (OZEMPIC) 0.25 mg or 0.5 mg(2 mg/1.5 mL) pen Indications: Type 2 diabetes mellitus without complication, with long-term current use of insulin (HCC) Inject 0.25 mg subcutaneously one time a week. 1.5 mL 1 10/08/2022 Active Start: 06-21-2022 End: 07-21-2022 semaglutide (OZEMPIC) 0.25 m g or 0.5 mg(2 mg/1.5 mL) pen Indications: Type 2 diabetes mellitus without complication, with long-term current use of insulin (HCC) Inject 0.25 mg subcutaneously one time a week. 4 Each 5 06/21/2022 07/21/2022 Comment on above: Inject 0.25 mg subcu taneously one time a week. sucralfate 1000 mg oral tablet (15 sources) Aluminum Complex Start: 04-13-2024 sucralfate 1 g oral tablet 0 Refill(s) Start Date: 04/13/24 Status: Ordered Repeat number: 1 Start: 04-07-2024 take 1 tablet by jimi th 1 hour(s) before mealtime Sucralfate 1 gram Tablet Active 1 g PO ONE HOURS BEFORE MEALS & BED 42 April 07, 2024 12:00am TENS unit and electrodes cmp k (20 sources) Start: 11-02-2016 TENS unit and electrodes cmpk 0 11/02/2016 Active Start: 11-02-2016 TENS unit and electrodes cmpk Completed/Discontinued Medications Medication Drug Class(es) Dates Sig (Normalized) Sig (Original) acetaminophen 325 mg / HYDROcodone bitartrate 5 mg oral tablet (20 sources) Opioid Agonist Start: 06-08-2022 End: 04-18-2023 Hydrocodone-Acetami nophen 5-325 mg tablet Discontinued 1 {tbl} PO EVERY 4 HOURS NEEDED as needed for Pain 15 2 June 08, 2022 April 18, 2023 3:10pm Start: 06-08-2022 End: 04-18-2023 take 1 tablet by mouth every four hours as needed Hydrocodone-Acetaminophen Discontinued 1 TABLET PO EVERY 4 HOURS NEEDED 15 2 June 08, 2022 April 18, 2023 3:10pm Start: 06-13-2020 End: 06-15-2020 Hydrocodone-Acetaminophen 1 TABLET tablet Discontinued 1 {tbl} PO EVERY 4 HOURS NEEDED as needed for Pain 10 2 June 13, 2020 June 14, 2020 1:00am June 15, 2020 1:03am Start: 06-13-2020 End: 06-15-2020 take 1 tablet by mouth every four hours as needed Hydrocodone-Acetaminophen Discontinued 1 TABLET PO EVERY 4 HOURS NEEDED 10 2 June 13, 2020 June 15, 2020 1:03am 200 actuat albuterol 0.09 mg/actuat dry powder inhaler (20 sources) beta2-Adrenergic Agonist Start: 10-30-2024 Albut adrian Sulfate 90 mcg/actuation HFA aerosol inhaler Active 2 NMA INHALATION EVERY 4-6 HOURS as needed for shortness of breath or wheezing 8.5 October 30, 2024 12:00am Start: 10-30-2024 End: 10-30-2024 Albuterol Sulfate 90 mcg/act uation aerosol powdr breath activated Discontinued 2 NMA INHALATION EVERY 6 HOURS as needed for shortness of breath or wheezing 1 October 30, 2024 12:55pm October 30, 2024 4:13pm Start: 10-01-2022 End: 10-11-2022 take 2 puff(s) by inhalation every four hours as needed for wheezing albuterol HFA (VENTOLIN HFA) 90 mcg/actuation inhaler Indications: Bronchitis Inhale 2 Puffs as instructed every 4 hours as needed for wheezing/shortness of breath for up to 10 days. 1 Each 0 10/01/2022 Active Start: 04-12-2020 End: 11-06-2022 take 2 puff(s) by inhalation every four hours as needed for wheezing albuterol HFA (VENTOLIN HFA) 90 mcg/actuation inhaler Indications: Cough , Wheezing Inhale 2 Puffs as instructed every 4 hours as needed for Wheezing/Shortness of Breath. 18 g 2 04/12/2020 11/06/2022 Discontinued Start: 04-11-2018 End: 10-30-2024 take 2.5 mg by inhalation every four hours as needed for wheezing Albuterol Sulfate 2.5 mg /3 mL (0.083 %) solution for nebulization Discontinued 2.5 mg INHALATION EVERY 4 HOURS NEEDED as needed for Sob &/Or Wheezing April 11, 2018 12:00am October 30, 2024 12:48pm Start: 12-22-2017 End: 04-11-2018 Albuterol Sulfate 18 GM HFA aerosol inhaler Discontinued 2 NMA PO EVERY 4 HOURS NEEDED as needed for Cough December 22, 2017 12:00am April 11, 2018 2:09pm take 1 puff(s) by in halation every six hours as needed Albuterol 108 (90 Base) MCG/ACT Aero Soln inhaler Inhale 1 puff every 6 hours as needed for Shortness of Breath. Active Comment on above: Inhale 2 Puffs as in structed every 4 hours as needed for Wheezing/Shortness of Breath. Inhale 2 Puffs as in structed every 4 hours as needed for wheezing/shortness of breath for up to 10 days. amLODIPine 2.5 mg oral tablet (20 sources) Dihydropyridine Calcium Channel Rivka Start: 08-09-19 End: 04-07-20 take 1 tablet by mouth once daily Amlodipine 2.5 mg tablet Discontinued 2.5 mg PO DAILY September 23, 2023 10:07am April 07, 2024 2:06pm amoxicillin 50 mg/ml oral suspension (1 source) Penicillin-class Antibacterial Start: 08-30-19 End: 08-30-19 amoxicillin 250 mg oral liquid (AMOXIL) Start: 08-30-2022 End: 08-30-2022 amoxicillin 250 mg oral liqu id (AMOXIL) azithromycin 250 mg oral tablet (11 sources) Macrolide Antimicrobial Start: 01-27-2024 End: 03-04-2024 Azithromycin 250 mg tablet Discontinued 250 mg PO .COMPLEX January 27, 2024 12:00am March 04, 2024 10:33am 2 tablets (500 mg) on day 1, then 1 tablet daily on days 2 through 11 Start: 10-01-2022 End: 10-06-2022 azithromycin (ZITHROMAX Z-PA K) 250 mg tablet Indications: Bronchitis Take 2 tablets day one, then, 1 tablet daily until gone. 6 tablet 0 10/01/2022 10/06/2022 Active Comment on above: Take 2 tablets day o ne, then, 1 tablet daily until gone. cefdinir 300 mg oral capsule (20 sources) Cephalosporin Antibacterial Start: 3 End: take 1 capsule by mouth twice daily Cefdinir 300 mg capsule Discontinued 300 mg PO TWICE A DAY 14 April 20, 2023 12:00am June 03, 2023 2:57pm Start: 02-11-2022 End: 04-18-2023 take 1 capsule by mouth twice daily Cefdinir 300 mg capsule Discontinued 300 mg PO TWICE A DAY February 11, 2022 12:00am April 18, 2023 3:09pm Comment on above: Take by mouth. ciprofloxacin 500 mg oral tablet (9 sources) Quinolone Antimicrobial Start: 11-04-19 End: 12-31-19 take 1 tablet by mouth twice daily Ciprofloxacin Hcl 500 mg tablet Discontinued 500 mg PO TWICE A DAY November 03, 2024 12:00am December 30, 2024 10:44am Start: 04-23-2024 End: 07-30-2024 take 1 tablet by mouth twice daily Ciprofloxacin 500 MG tablet Take 1 tablet by mouth 2 times daily. 04/23/2024 07/30/2024 Discontinued Start: 08-07-2022 End: 08-14-2022 ciprofloxacin HCl (CIPRO) 50 0 mg tablet Indications: Urinary tract infection with hematuria, site unspecified Take 1 tablet by mouth twice daily for 7 days. FOR 7 DAYS. 14 tablet 0 08/07/2022 08/14/2022 Active Comment on above: Take 1 tablet by jimi twice daily for 7 days. FOR 7 DAYS. clindamycin 300 mg oral capsule (18 sources) Lincosamide Antibacterial Start: 022 End: take 1 capsule by mouth every six hours Clindamycin Hcl (Cleocin Hcl) 300 mg capsule Discontinued 300 mg PO EVERY 6 HOURS June 08, 2022 1:00am April 18, 2023 3:09pm cyclobenzaprine hydrochloride 5 mg oral tablet (20 sources) Muscle Relaxant Start: 018 End: 018 take 1 tablet by mouth three times daily as needed for muscle spasms Cyclobenzaprine 5 mg tablet Discontinued 5 mg PO THREE TIMES A DAY as needed for muscle spasm March 28, 2018 12:00am April 11, 2018 2:09pm dicyclomine hydrochloride 10 mg oral capsule (20 sources) Anticholinergic Start: 024 End: 024 take 1 capsule by mouth four times daily Dicyclomine 10 mg capsule Discontinued 10 mg PO .QID March 11, 2024 12:00am April 04, 2024 8:14am Start: 02-24-2024 End: 02-29-2024 dicyclomine 10 mg oral capsu le Dose : 10 mg = 1 cap(s), Oral, QID, # 20 cap(s), 0 Refill(s), Pharmacy: [facility] [id number], 152, cm, 02/24/24 9:43:00 EDT, Height, kg, 02/24/24 9:43:00 EDT, Dosing Weight Start Date: 02/24/24 Stop Date: 02/29/24 Status: Ordered Quantity: 20.0 Unit: cap(s) Repeat number: 1 Start: 06-08-2023 End: 06-13-2023 dicyclomine 10 mg oral capsu le Dose : 10 mg = 1 cap(s), Oral, QID, # 20 cap(s), 0 Refill(s) Start Date: 06/08/23 Stop Date: 06/13/23 Status: Ordered docusate sodium 100 mg oral capsule (20 sources) Start: 06-13-2020 End: 04-18-2023 take 1 capsule by mouth once daily as needed for constipation Docusate Sodium 100 MG capsule Discontinued 100 mg PO DAILY as needed for Constipation September 07, 2020 1:34am April 18, 2023 3:10pm doxycycline hyclate 100 mg oral capsule (12 sources) Tetracyclin e-class Drug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 classified] Onset: 5 Episodic Other lower respiratory disease (20 sources) Dyspnea; Translations: [Dyspnea, unspecified] 03-24-2020 Episodic Other lower respiratory disease (9 sources) Cough; Translations: [Acute cough] Episodic Other lower respiratory disease (18 sources) Hypoxia; Translations: [Hypoxemia] 04-18-2023 Episodic Other lower respiratory disease (19 sources) Multiple nodules of lung 08-19-2023 Episodic Other lower respiratory disease (8 sources) Dyspnea on exertion; Translations: [Other forms of dyspnea] 04-15-2024 Episodic Other lower respiratory disease (18 sources) Hypoxemia; Translations: [Hypoxemia] 09-04-2024 Episodic Other lower respiratory disease (8 sources) Wheezing; Translations: [Wheezing] 01-22-2024 Episodic Other nervous system disorders (20 sources) Neuropathy; Translations: [Polyneuropathy, unspecified] 02-18-2023 Chronic Other nervous system disorders (2 sources) Polyneuropathy, unspecified; Translations: [Mononeuritis of unspecified site] Onset: 4 02-18-2023 Chronic Other nervous system disorders (20 sources) Peripheral nerve disease 06-21-2023 Chronic Other nervous system disorders (10 sources) Carpal tunnel syndrome 03-30-2024 Chronic Other nervous system disorders (8 sources) Carpal tunnel syndrome of right wrist; Translations: [Carpal tunnel syndrome, right upper limb] 04-16-2024 Chronic Other nervous system disorders (8 sources) Carpal tunnel syndrome of left wrist; Translations: [Carpal tunnel syndrome, left upper limb] 04-16-2024 Chronic Other nervous system disorders (1 source) Carpal tunnel syndrome, right upper limb; Translations: [Carpal tunnel syndrome, right upper limb] Onset: 4 Chronic Other nervous system disorders (1 source) Carpal tunnel syndrome, left upper limb; Translations: [Carpal tunnel syndrome, left upper limb] Onset: 4 Chronic Other non-traumatic joint disorders (20 sources) Pain in left knee; Translations: [Posterior left knee pain] 01-22-2020 Episodic Other non-traumatic joint disorders (1 source) Wrist joint pain; Translations: [Pain in unspecified wrist] Onset: 4 Episodic Other non-traumatic joint disorders (8 sources) Pain in wrist; Translations: [Pain in right wrist] 04-16-2024 Episodic Other nutritional; endocrine; and metabolic disorders (20 sources) Body mass index 40+ - severely obese; Translations: [Body mass index (BMI) 45.0-49.9, adult] Onset: 6 04-09-2016 Chronic Other nutritional; endocrine; and metabolic disorders (20 sources) Morbid obesity; Translations: [Morbid (severe) obesity due to excess calories] 07-21-2021 Chronic Other nutritional; endocrine; and metabolic disorders (18 sources) Obesity; Translations: [Obesity, unspecified] 02-18-2023 Chronic Other nutritional; endocrine; and metabolic disorders (2 sources) Obesity, unspecified; Translations: [Obesity, unspecified] 02-18-2023 Chronic Other nutritional; endocrine; and metabolic disorders (6 sources) Morbid (severe) obesity due to excess calories; Translations: [Morbid (severe) obesity due to excess calories] Onset: 4 Chronic Other nutritional; endocrine; and metabolic disorders (1 source) Body mass index (BMI) 50.0-59.9, adult; Translations: [Body mass index [BMI] 50.0-59.9, adult] Onset: 4 Chronic Other nutritional; endocrine; and metabolic disorders (8 sources) History of diabetes mellitus type 2; Translations: [Personal history of other endocrine, nutritional and metabolic disease] 01-13-2024 Episodic Other skin disorders (1 source) Eruption; Translations: [Rash and other nonspecific skin eruption] Episodic Other skin disorders (2 sources) Swelling of lower leg 11-06-2024 Episodic Other upper respiratory disease (1 source) Non-allergic rhinitis; Translations: [Chronic rhinitis] Chronic Other upper respiratory infections (20 sources) Viral upper respiratory tract infection; Translations: [Acute upper respiratory infection, unspecified] Episodic Prolapse of female genital organs (5 sources) Cystocele 05-21-2024 Chronic Residual codes; unclassified (19 sources) Obstructive sleep apnea syndrome; Translations: [Obstructive sleep apnea (adult) (pediatric)] Chronic Comment on above: STOP-BANG= 7 Residual codes; unclassified (1 source) Obstructive sleep apnea (adult) (pediatric); Translations: [Obstructive sleep apnea (adult) (pediatric)] Onset: 5 Chronic Residual codes; unclassified (1 source) Hypersomnia, unspecified; Translations: [Hypersomnia, unspecified] Onset: 5 Chronic Residual codes; unclassified (19 sources) Noncompliance with medication regimen; Translations: [Patient's other noncompliance with medication regimen] 02-19-2022 Episodic Residual codes; unclassified (1 source) Patient's other noncompliance with medication regimen; Translations: [Personal history of noncompliance with medical treatment, presenting hazards to health] Episodic Residual codes; unclassified (10 sources) Edema; Translations: [Edema, unspecified] 01-20-2023 Episodic Residual codes; unclassified (9 sources) Edema of lower extremity; Translations: [Localized edema] 04-18-2023 Episodic Residual codes; unclassified (1 source) Localized edema; Translations: [Edema] 04-20-2023 Episodic Skin and subcutaneous tissue infections (20 sources) Cellulitis; Translations: [Cellulitis, unspecified] Onset: 2 06-11-2012 Episodic Sprains and strains (20 sources) Sprain of wrist; Translations: [Unspecified sprain of right wrist, initial encounter] 02-16-2019 Episodic Superficial injury; contusion (20 sources) Contusion of head; Translations: [Contusion of unspecified part of head, initial encounter] 08-12-2022 Episodic Thyroid disorders (20 sources) Hypothyroidism; Translations: [Hypothyroidism, unspecified] Onset: 2 07-07-2015 Chronic Unclassified (3 sources) No additional problems on file Unclassified (18 sources) Bowel Prep Onset: 4 06-23-2024 Unclassified (4 sources) Cancer cervix screening status 09-02-2024 Unclassified (1 source) Elevation of levels of liver transaminase levels; Translations: [Elevation of levels of liver transaminase levels] Onset: 5 Unclassified (1 source) Cough, unspecified; Translations: [Cough, unspecified] Onset: 5 Viral infection (8 sources) Disease caused by 2019-nCoV; Translations: [COVID-19] 03-15-2024 Episodic Viral infection (2 sources) COVID-19; Translations: [COVID-19] Onset: 4 Past or Other Problems Problem Classification Problem Date Documented Da te Episodic/Chronic Abdominal pain (20 sources) Abdominal pain - cause unknown; Translations: [Upper abdominal pain, unspecified] Onset: 08-16-2024 04-08-2021 Episodic Anxiety disorders (20 sources) Feeling irritable; Translations: [Irritability and anger] Onset: 10-23-2018 10-23-2018 Episodic Calculus of urinary tract (4 sources) Calculus of ureter; Translations: [Calculus of ureter] Onset: 03-17-2024 Episodic Deficiency and other anemia (3 sources) Iron deficiency anemia, unspecified; Translations: [Iron deficiency anemia, unspecified] Onset: 08-27-2024 Episodic Gastrointestinal hemorrhage (20 sources) Hematemesis; Translations: [Hematemesis] Onset: 04-13-2024 10-13-2013 Episodic Immunizations and screening for infectious disease (4 sources) Needs influenza immunization; Translations: [Encounter for immunization] Onset: 09-02-2024 05-03-2023 Episodic Mood disorders (20 sources) Mood disorders Onset: 05-07-2024 Resolved: 12-31-2024 05-07-2024 Other aftercare (4 sources) Encounter for follow-up examination after completed treatment for conditions other than malignant neoplasm; Translations: [Encounter for follow-up examination after completed treatment for conditions other than malignant ne] Onset: 01-14-2024 Episodic Other aftercare (2 sources) [facility] (current) use of insulin; 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] Onset: 03-07-2024 Episodic Other and unspecified benign neoplasm (20 sources) Other benign neuroendocrine tumors; Translations: [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] Onset: 07-29-2024 05-07-2024 Episodic Other connective tissue disease (1 source) Pain in left foot; Translations: [Pain in left foot] Onset: 10-09-2024 Episodic Other disorders of stomach and duodenum (2 sources) Gastroparesis; Translations: [Gastroparesis] Onset: 07-05-2024 Episodic Other gastrointestinal disorders (20 sources) Occult blood in stools; Translations: [Other fecal abnormalities] Onset: 01-08-2018 01-08-2018 Episodic Other hematologic conditions (20 sources) History of anemia; Translations: [Personal history of diseases of the blood and blood-forming organs and certain disorders involving the immune mechanism] Onset: 04-28-2012 04-28-2012 Episodic Other lower respiratory disease (3 sources) Hypoxemia; Translations: [Hypoxemia] Onset: 04-13-2024 04-20-2023 Episodic Other lower respiratory disease (1 source) Wheezing; Translations: [Wheezing] Onset: 01-22-2024 Episodic Other non-traumatic joint disorders (1 source) Pain in right wrist; Translations: [Pain in right wrist] Onset: 04-16-2024 Episodic Other screening for suspected conditions (not mental disorders or infectious disease) (16 sources) Patient encounter status; Translations: [Encounter for screening for malignant neoplasm of colon] Onset: 07-29-2024 05-03-2023 Episodic Residual codes; unclassified (11 sources) Bilateral lower limb edema; Translations: [Localized edema] Onset: 05-17-2023 Episodic Residual codes; unclassified (1 source) Early satiety; Translations: [Early satiety] Onset: 07-12-2024 Episodic Unclassified (20 sources) Patient encounter status 06-21-2023 Unclassified (1 source) Neuroendocrine tumor 09-03-2024 Unclassified (4 sources) Neuroendocrine cancer 12-31-2024 Unclassified (1 source) Elevation of levels of liver transaminase levels; Translations: [Elevation of levels of liver transaminase levels] Onset: 12-31-2024 Urinary tract infections (20 sources) Urinary tract infectious disease; Translations: [Urinary tract infection, site not specified] Onset: 02-25-2024 Episodic Results Test Name Value Interpretation Reference Range Facility Urgent Care Visit Reporton 0 12-30-2024 Urgent Care Visit Report Normal [facility] CT ABDOMEN/PELVIS WITH AND W ITHOUT CONTRASTon 12-25-2024 CT ABDOMEN/PELVIS WITH AND WITHOUT CONTRAST EXAM: CT ABDOMEN/PELVIS WITH AND WITHOUT CONTRAST COMPARISON: 08/14/2024 CT, 07/30/[address] CLINICAL INDICATIONS: Must do with Triple Phase Technique for evaluation of metastatic carcinoid/neuroendocrine tumors follow up.; ADDITIONAL INFORMATION (per [facility]): Alcoholic cirrhosis, 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 Active surveillance. TECHNIQUE: CT scanning was performed through the abdomen without intravenous contrast. CT scanning was then performed through the abdomen following the administration of intravenous contrast, during the arterial phase, and then again through the abdomen and pelvis during the portal venous phase. PROTOCOL: CT scanning was performed without IV contrast and in the arterial and portal venous phases following IV contrast administration. FINDINGS: LOWER THORAX: Unremarkable. LIVER: No abnormal arterial enhancement. No focal hepatic lesions. The main portal vein is patent. BILIARY: Status post cholecystectomy. No biliary dilatation. PANCREAS: Unremarkable. SPLEEN: The spleen is enlarged, measuring 18.5 cm in length, similar to prior. Calcified splenic granulomas. ADRENAL GLANDS: Unremarkable. KIDNEYS/URETERS: Punctate nonobstructing calyceal stone in the left kidney. The proximal left ureteral stone seen on prior exam is no longer identified. No evidence of obstructive uropathy. PELVIC ORGANS/BLADDER: An IUD is in grossly expected position. 10 mm fatty lesion near the uterine fundus is stable. Calcifications along the right uterine body, stable. The adnexa and bladder are grossly unremarkable. GI TRACT: A few surgical clips are again seen in the stomach, unchanged from prior. No focal bowel wall thickening or bowel obstruction. Normal appendix. PERITONEUM: No free air or free fluid. LYMPH NODES: Index 1.9 cm x 1.2 cm gastrohepatic node (series 8, image 36), previously 1.8 cm x 1.2 cm, stable. No new or progressive lymphadenopathy. VESSELS: Atherosclerosis. No abdominal aortic aneurysm. BONES AND SOFT TISSUES: No suspicious osseous lesions. Degenerative changes in the spine.. IMPRESSION: 1. Stable mildly enlarged gastrohepatic lymph node, with no definite CT evidence for progressive disease in the abdomen/pelvis when compared to 08/14/2024. 2. Stable splenomegaly. 3. Small left ureteral stone seen on prior exam is no longer identified. Mona Hernadez M.D. This report has been electronically signed and verified by the Radiologist whose name is printed above. This report contains privileged and confidential information and is intended solely for the use of the individual or entity to which it is addressed. If you are not the intended recipient of this report, you are hereby notified that any copying, distribution, dissemination or action taken in relation to the contents of this report is strictly prohibited and may be unlawful. If you have received this report in error, please notify the sender immediately at [phone] and permanently delete the original report and destroy any copies or printouts. Normal [facility] CBC AND ELECTRONIC DIFFon Basophils (Bld) [#/Vol] 0.07 10*3/uL 0.00 - 0.15 K/uL [facility] Basophils/100 WBC (Bld) 0.8 % [facility] Differential cell count method Nom (Bld) Electronic Differential [facility] Eosinophils (Bld) [#/Vol] 0.24 10*3/uL 0.00 - 0.42 K/uL [facility] Eosinophils/100 WBC (Bld) 2.7 % [facility] Erythrocyte distribution width (RBC) [Ratio] 15.4 % High 10.8 - 14.9 % [facility] Hematocrit (Bld) [Volume fraction] 37.7 % 34.9 - 44.3 % [facility] Hemoglobin (Bld) [Mass/Vol] 12.1 g/dL 11.4 - 15.2 g/dL [facility] Immature granulocytes (Bld) [#/Vol] 0.09 10*3/uL High NINF - 0.08 K/uL [facility] Immature granulocytes/100 WBC (Bld) 1 % [facility] Interpretation and review of laboratory results Abnormal [facility] Lymphocytes (Bld) [#/Vol] 2.76 10*3/uL 1.16 - 3.51 K/uL [facility] Lymphocytes/100 WBC (Bld) 31.3 % [facility] MCH (RBC) [Entitic mass] 25.4 pg Low 25.9 - 33.9 pg [facility] MCHC (RBC) [Mass/Vol] 32.1 g/dL 31.4 - 35.9 g/dL [facility] MCV (RBC) [Entitic vol] 79 fL Low 79.6 - 97.7 fL [facility] Monocytes (Bld) [#/Vol] 0.45 10*3/uL 0.22 - 0.87 K/uL [facility] Monocytes/100 WBC (Bld) 5.1 % [facility] Neutrophils (Bld) [#/Vol] 5.22 10*3/uL 1.64 - 7.28 K/uL [facility] Nucleated RBC/100 WBC (Bld) [Ratio] 0 % NINF [facility] Platelet mean volume (Bld) [Entitic vol] 9.8 fL 8.5 - 12.2 fL [facility] Platelets (Bld) [#/Vol] 251 10*3/uL 150 - 393 K/uL [facility] RBC (Bld) [#/Vol] 4.77 10*6/uL [facility] Segmented neutrophils/100 WBC (Bld) 59.1 % [facility] WBC (Bld) [#/Vol] 8.83 10*3/uL 3.99 - 11. 19 K/uL [facility] Basophils (Bld) [#/Vol] 0.07 10*3/uL Normal 0.00-0.15 [facility] Comment on above: Performed By: #### P CA #### [facility] (DEFAULT) [address] [place] [address] Basophils/100 WBC (Bld) 0.8 % Normal [facility] Comment on above: Performed By: #### P CA #### [facility] (DEFAULT) [address] [place] [address] DIFF STATUS Electronic Differential Normal [facility] Comment on above: Performed By: #### P CA #### [facility] (DEFAULT) [address] [place] [address] Eosinophils (Bld) [#/Vol] 0.24 10*3/uL Normal 0.00-0.42 [facility] Comment on above: Performed By: #### P CA #### [facility] (DEFAULT) [address] [address] Eosinophils/100 WBC (Bld) 2.7 % Normal [facility] Comment on above: Performed By: #### P CA #### [facility] (DEFAULT) [address] [place] [address] Hematocrit (Bld) [Volume fraction] 37.7 % Normal 34.9-44.3 [facility] Comment on above: Performed By: #### P CA #### [facility] (DEFAULT) [address] [address] Hemoglobin (Bld) [Mass/Vol] 12.1 g/dL Normal 11.4-15.2 [facility] Comment on above: Performed By: #### P CA #### [facility] (DEFAULT) [address] [address] Immature Grans % 1.0 % Normal [facility] Comment on above: Performed By: #### P CA #### [facility] (DEFAULT) [address] [address] Immature Grans Absolute 0.09 K/uL High <=0.08 [facility] Comment on above: Performed By: #### P CA #### [facility] (DEFAULT) [address] [place] [address] Lymphocytes (Bld) [#/Vol] 2.76 10*3/uL Normal 1.16-3.51 [facility] Comment on above: Performed By: #### P CA #### [facility] (DEFAULT) [address] [address] Lymphocytes/100 WBC (Bld) 31.3 % Normal [facility] Comment on above: Performed By: #### P CA #### [facility] (DEFAULT) [address] [address] MCV (RBC) [Entitic vol] 79.0 fL Low 79.6-97.7 [facility] Comment on above: Performed By: #### P CA #### [facility] (DEFAULT) [address] [address] Mean Cell Hgb 25.4 pg Low 25.9-33.9 [facility] Comment on above: Performed By: #### P CA #### [facility] (DEFAULT) [address] [address] Mean Cell Hgb Conc 32.1 g/dL Normal 31.4-35.9 [facility] Comment on above: Performed By: #### P CA #### [facility] (DEFAULT) [address] [address] Monocytes (Bld) [#/Vol] 0.45 10*3/uL Normal 0.22-0.87 [facility] Comment on above: Performed By: #### P CA #### [facility] (DEFAULT) [address] [address] Monocytes/100 WBC (Bld) 5.1 % Normal [facility] Comment on above: Performed By: #### P CA #### [facility] (DEFAULT) [address] [address] Nucleated RBC 0.0 /100 WBC Normal <=0.2 [facility] Comment on above: Performed By: #### P CA #### [facility] (DEFAULT) [address] [address] Platelet mean volume (Bld) [Entitic vol] 9.8 fL Normal 8.5-12.2 [facility] Comment on above: Performed By: #### P CA #### [facility] (DEFAULT) [address] [place] [address] Platelets (Bld) [#/Vol] 251 10*3/uL Normal 150-393 [facility] Comment on above: Performed By: #### P CA #### [facility] (DEFAULT) [address] [place] [address] RBC (Bld) [#/Vol] 4.77 10*6/uL Normal 3.91-5.04 [facility] Comment on above: Performed By: #### P CA #### [facility] (DEFAULT) [address] [place] [address] RBC Distribution 15.4 % High 10.8-14.9 [facility] Comment on above: Performed By: #### P CA #### [facility] (DEFAULT) [address] [place] [address] Segs + Bands Auto 59.1 % Normal [facility] Comment on above: Performed By: #### P CA #### [facility] (DEFAULT) [address] [place] [address] Segs + Bands,Absolute Auto 5.22 K/uL Normal 1.64-7.28 [facility] Comment on above: Performed By: #### P CA #### [facility] (DEFAULT) [address] [place] [address] WBC (Bld) [#/Vol] 8.83 10*3/uL Normal 3.99-11.19 [facility] Comment on above: Performed By: #### P CA #### [facility] (DEFAULT) [address] [place] [address] Basophils (Bld) [#/Vol] 0.07 10*3/uL Normal 0.00-0.15 [facility] Comment on above: Performed By: #### L [id number] #### [facility] (DEFAULT) [address] [address] Basophils/100 WBC (Bld) 0.9 % Normal [facility] Comment on above: Performed By: #### L [id number] #### [facility] (DEFAULT) [address] [address] DIFF STATUS Electronic Differential Normal [facility] Comment on above: Performed By: #### L [id number] #### [facility] (DEFAULT) [address] [address] Eosinophils (Bld) [#/Vol] 0.23 10*3/uL Normal 0.00-0.42 [facility] Comment on above: Performed By: #### L [id number] #### [facility] (DEFAULT) [address] [address] Eosinophils/100 WBC (Bld) 2.9 % Normal [facility] Comment on above: Performed By: #### L [id number] #### [facility] (DEFAULT) [address] [address] Hematocrit (Bld) [Volume fraction] 39.2 % Normal 34.9-44.3 [facility] Comment on above: Performed By: #### L [id number] #### [facility] (DEFAULT) [address] [address] Hemoglobin (Bld) [Mass/Vol] 12.2 g/dL Normal 11.4-15.2 [facility] Comment on above: Performed By: #### L [id number] #### [facility] (DEFAULT) [address] [address] Immature Grans % 1.1 % Normal [facility] Comment on above: Performed By: #### L [id number] #### [facility] (DEFAULT) [address] [address] Immature Grans Absolute 0.09 K/uL High <=0.08 [facility] Comment on above: Performed By: #### L [id number] #### [facility] (DEFAULT) [address] [place] [address] Lymphocytes (Bld) [#/Vol] 2.62 10*3/uL Normal 1.16-3.51 [facility] Comment on above: Performed By: #### L [id number] #### [facility] (DEFAULT) [address] [address] Lymphocytes/100 WBC (Bld) 32.5 % Normal [facility] Comment on above: Performed By: #### L [id number] #### [facility] (DEFAULT) [address] [address] MCV (RBC) [Entitic vol] 79.5 fL Low 79.6-97.7 [facility] Comment on above: Performed By: #### L [id number] #### [facility] (DEFAULT) [address] [address] Mean Cell Hgb 24.7 pg Low 25.9-33.9 [facility] Comment on above: Performed By: #### L [id number] #### [facility] (DEFAULT) [address] [address] Mean Cell Hgb Conc 31.1 g/dL Low 31.4-35.9 [facility] Comment on above: Performed By: #### L [id number] #### [facility] (DEFAULT) [address] [place] [address] Monocytes (Bld) [#/Vol] 0.41 10*3/uL Normal 0.22-0.87 [facility] Comment on above: Performed By: #### L [id number] #### [facility] (DEFAULT) [address] [address] Monocytes/100 WBC (Bld) 5.1 % Normal [facility] Comment on above: Performed By: #### L [id number] #### [facility] (DEFAULT) [address] [place] [address] Nucleated RBC 0.0 /100 WBC Normal <=0.2 [facility] Comment on above: Performed By: #### L [id number] #### [facility] (DEFAULT) [address] [place] [address] Platelet mean volume (Bld) [Entitic vol] 10.6 fL Normal 8.5-12.2 [facility] Comment on above: Performed By: #### L [id number] #### [facility] (DEFAULT) [address] [place] [address] Platelets (Bld) [#/Vol] 266 10*3/uL Normal 150-393 [facility] Comment on above: Performed By: #### L [id number] #### [facility] (DEFAULT) [address] [place] [address] RBC (Bld) [#/Vol] 4.93 10*6/uL Normal 3.91-5.04 [facility] Comment on above: Performed By: #### L [id number] #### [facility] (DEFAULT) [address] [address] RBC Distribution 15.6 % High 10.8-14.9 [facility] Comment on above: Performed By: #### L [id number] #### [facility] (DEFAULT) [address] [address] Segs + Bands Auto 57.5 % Normal [facility] Comment on above: Performed By: #### L [id number] #### [facility] (DEFAULT) [address] [address] Segs + Bands,Absolute Auto 4.63 K/uL Normal 1.64-7.28 [facility] Comment on above: Performed By: #### L [id number] #### [facility] (DEFAULT) [address] [place] [address] WBC (Bld) [#/Vol] 8.05 10*3/uL Normal 3.99-11.19 [facility] Comment on above: Performed By: #### L [id number] #### [facility] (DEFAULT) [address] [place] [address] CHROMOGRANIN Aon 12-24-2024 Chromogranin A 756 ng/mL High <93 [facility] Comment on above: Result Comment: Impa ired renal or hepatic function or treatment with proton pump inhibitors may result in artifactual elevations of Chromogranin A. ADDITIONAL INFORMATION The testing method is a homogeneous time-resolved immunofluorescent assay manufactured by [employer] and performed on the new test company [employer]. Values obtained with different assay methods or kits may be different and cannot be used interchangeably. Test results cannot be interpreted as absolute evidence for the presence or absence of malignant disease. In some immunoassays, the presence of unusually high concentrations of analyte may result in a high-dose hook effect. This may result in a lower or even normal measured analyte concentration. If the reported result is inconsistent with the clinical presentation, the laboratory should be alerted for troubleshooting. For diagnostic purposes, these immunoassay results should always be assessed in conjunction with the patients medical history, clinical examination and other findings. Test Performed by: [place] [address] Allergy Specialist: Juana Recio Ph.D.; CLIA# [id number] Performed By: #### Char DOCKERY, JOANO #### [facility] (DEFAULT) [address] [place], [place] [id number] Chromogranin A 678 ng/mL High <93 [facility] Comment on above: Result Comment: Impa ired renal or hepatic function or treatment with proton pump inhibitors may result in artifactual elevations of Chromogranin A. ADDITIONAL INFORMATION The testing method is a homogeneous time-resolved immunofluorescent assay manufactured by [employer] and performed on the new test company [employer]. Values obtained with different assay methods or kits may be different and cannot be used interchangeably. Test results cannot be interpreted as absolute evidence for the presence or absence of malignant disease. In some immunoassays, the presence of unusually high concentrations of analyte may result in a high-dose hook effect. This may result in a lower or even normal measured analyte concentration. If the reported result is inconsistent with the clinical presentation, the laboratory should be alerted for troubleshooting. For diagnostic purposes, these immunoassay results should always be assessed in conjunction with the patients medical history, clinical examination and other findings. Test Performed by: [facility] [address] [place] [address] Allergy Specialist: Juana Recio Ph.D.; CLIA# [id number] Performed By: #### C MPN, LDO #### [facility] (DEFAULT) [address] [place] [address] COMPREHENSIVE METABOLIC PANE [facility] 12-24-2024 Albumin [Mass/Vol] 3.8 g/dL 3.5 - 5.0 g/dL [facility] ALP [Catalytic activity/Vol] 143 U/L High 32 - 126 U/L [facility] ALT [Catalytic activity/Vol] 49 U/L High 9 - 48 U/L [facility] Anion gap [Moles/Vol] 10 mmol/L 7 - 17 mmol/L [facility] AST [Catalytic activity/Vol] 57 U/L High 10 - 39 U/L [facility] Bilirubin [Mass/Vol] 0.5 mg/dL NINF - 1.5 mg/dL [facility] Calcium [Mass/Vol] 9.6 mg/dL 8.6 - 10. 5 mg/dL [facility] Chloride [Moles/Vol] 95 mmol/L Low 98 - 10 8 mmol/L [facility] CO2 [Moles/Vol] 31 mmol/L 21 - 31 mmol/L [facility] Creatinine [Mass/Vol] 0.69 mg/dL 0.50 - 1.20 mg/dL [facility] eGFR, CKD-EPI, Female - PINF [facility] Comment on above: Reported eGFR is bas ed on the CKD-EPI 2020 equation using creatinine, age, and sex. Glucose [Mass/Vol] 312 mg/dL High 70 - 179 mg/dL [facility] Interpretation and review of laboratory results Abnormal [facility] Osmolality Calc [Osmolality] 291 [facility] Potassium [Moles/Vol] 4.7 mmol/L 3.5 - 5.0 mmol/L [facility] Protein [Mass/Vol] 9.1 g/dL High 6.4 - 8.3 g/dL [facility] Sodium [Moles/Vol] 131 mmol/L Low 135 - 145 mmol/L [facility] Urea nitrogen [Mass/Vol] 14 mg/dL 7 - 25 mg/dL [facility] Urea nitrogen/Creatinine [Mass ratio] 20 mg/mg [facility] Albumin [Mass/Vol] 3.8 g/dL Normal 3.5-5.0 [facility] Comment on above: Performed By: #### C MPN, LDO #### [facility] (DEFAULT) [address] [address] ALP [Catalytic activity/Vol] 143 U/L High 32-126 [facility] Comment on above: Performed By: #### C MPN, LDO #### [facility] (DEFAULT) [address] [address] ALT [Catalytic activity/Vol] 49 U/L High 9-48 [facility] Comment on above: Performed By: #### C MPN, LDO #### [facility] (DEFAULT) [address] [address] Anion gap [Moles/Vol] 10 mmol/L Normal 7-17 [facility] Comment on above: Performed By: #### C MPN, LDO #### [facility] (DEFAULT) [address] [address] AST [Catalytic activity/Vol] 57 U/L High 10-39 [facility] Comment on above: Performed By: #### C MPN, LDO #### [facility] (DEFAULT) [address] [place] [address] Bilirubin [Mass/Vol] 0.5 mg/dL Normal <1.5 [facility] Comment on above: Performed By: #### C MPN, LDO #### [facility] (DEFAULT) [address] [place] [address] Calcium [Mass/Vol] 9.6 mg/dL Normal 8.6-10.5 [facility] Comment on above: Performed By: #### C MPN, LDO #### [facility] (DEFAULT) [address] [place] [address] Chloride [Moles/Vol] 95 mmol/L Low 98-108 [facility] Comment on above: Performed By: #### C MPN, LDO #### [facility] (DEFAULT) [address] [place] [address] CO2 [Moles/Vol] 31 mmol/L Normal 21-31 [facility] Comment on above: Performed By: #### C MPN, LDO #### [facility] (DEFAULT) [address] [place] [address] Creatinine [Mass/Vol] 0.69 mg/dL Normal 0.50-1.20 [facility] Comment on above: Performed By: #### C MPN, LDO #### [facility] (DEFAULT) [address] [place] [address] eGFR, CKD-EPI, Female > Normal >=60 [facility] Comment on above: Result Comment: Repo rted eGFR is based on the CKD-EPI 2020 equation using creatinine, age, and sex. Performed By: #### C MPN, LDO #### [facility] (DEFAULT) [address] [place] [address] Glucose [Mass/Vol] 312 mg/dL High Nonfastin -179 mg/dL; Fastin-99 [facility] Comment on above: Performed By: #### C MPN, LDO #### [facility] (DEFAULT) [address] [place] [address] Osmolality [Osmolality] 291 mosm/kg Normal 278-305 [facility] Comment on above: Performed By: #### C MPN, LDO #### [facility] (DEFAULT) [address] [place] [address] Potassium [Moles/Vol] 4.7 mmol/L Normal 3.5-5.0 [facility] Comment on above: Performed By: #### C MPN, LDO #### [facility] (DEFAULT) [address] [place] [address] Protein [Mass/Vol] 9.1 g/dL High 6.4-8.3 [facility] Comment on above: Performed By: #### C MPN, LDO #### [facility] (DEFAULT) [address] [place] [address] Sodium [Moles/Vol] 131 mmol/L Low 135-145 [facility] Comment on above: Performed By: #### C MPN, LDO #### [facility] (DEFAULT) [address] [place] [address] Urea nitrogen [Mass/Vol] 14 mg/dL Normal 7-25 [facility] Comment on above: Performed By: #### C MPN, LDO #### [facility] (DEFAULT) [address] [place] [address] Urea nitrogen/Creatinine [Mass ratio] 20 mg/mg Normal [facility] Comment on above: Performed By: #### C MPN, LDO #### [facility] (DEFAULT) [address] [place] [address] Albumin [Mass/Vol] 3.8 g/dL Normal 3.5-5.0 [facility] Comment on above: Performed By: #### C MPN, LDO #### [facility] (DEFAULT) [address] [place] [address] ALP [Catalytic activity/Vol] 153 U/L High 32-126 [facility] Comment on above: Performed By: #### C MPN, LDO #### [facility] (DEFAULT) [address] [place] [address] ALT [Catalytic activity/Vol] 48 U/L Normal 9-48 [facility] Comment on above: Performed By: #### C MPN, LDO #### [facility] (DEFAULT) [address] [place] [address] Anion gap [Moles/Vol] 9 mmol/L Normal 7-17 [facility] Comment on above: Performed By: #### C MPN, LDO #### [facility] (DEFAULT) [address] [place] [address] AST [Catalytic activity/Vol] 56 U/L High 10-39 [facility] Comment on above: Performed By: #### C MPN, LDO #### [facility] (DEFAULT) [address] [place] [address] Bilirubin [Mass/Vol] 0.5 mg/dL Normal <1.5 [facility] Comment on above: Performed By: #### C MPN, LDO #### [facility] (DEFAULT) [address] [place] [address] Calcium [Mass/Vol] 9.5 mg/dL Normal 8.6-10.5 [facility] Comment on above: Performed By: #### C MPN, LDO #### [facility] (DEFAULT) [address] [place] [address] Chloride [Moles/Vol] 93 mmol/L Low 98-108 [facility] Comment on above: Performed By: #### C MPN, LDO #### [facility] (DEFAULT) [address] [place] [address] CO2 [Moles/Vol] 34 mmol/L High 21-31 [facility] Comment on above: Performed By: #### C MPN, LDO #### [facility] (DEFAULT) [address] [place] [address] Creatinine [Mass/Vol] 0.69 mg/dL Normal 0.50-1.20 [facility] Comment on above: Performed By: #### C MPN, LDO #### [facility] (DEFAULT) [address] [place] [address] eGFR, CKD-EPI, Female > Normal >=60 [facility] Comment on above: Result Comment: Repo rted eGFR is based on the CKD-EPI 2020 equation using creatinine, age, and sex. Performed By: #### C MPN, LDO #### [facility] (DEFAULT) [address] [place] [address] Glucose [Mass/Vol] 288 mg/dL High Nonfastin -179 mg/dL; Fastin-99 [facility] Comment on above: Performed By: #### C MPN, LDO #### [facility] (DEFAULT) [address] [place] [address] Osmolality [Osmolality] 291 mosm/kg Normal 278-305 [facility] Comment on above: Performed By: #### C MPN, LDO #### [facility] (DEFAULT) [address] [place] [address] Potassium [Moles/Vol] 4.4 mmol/L Normal 3.5-5.0 [facility] Comment on above: Performed By: #### C MPN, LDO #### [facility] (DEFAULT) [address] [place] [address] Protein [Mass/Vol] 9.2 g/dL High 6.4-8.3 [facility] Comment on above: Performed By: #### C MPN, LDO #### [facility] (DEFAULT) [address] [place] [address] Sodium [Moles/Vol] 132 mmol/L Low 135-145 [facility] Comment on above: Performed By: #### C MPN, LDO #### [facility] (DEFAULT) [address] [place] [address] Urea nitrogen [Mass/Vol] 14 mg/dL Normal 7-25 [facility] Comment on above: Performed By: #### C MPN, LDO #### [facility] (DEFAULT) [address] [place] [address] Urea nitrogen/Creatinine [Mass ratio] 20 mg/mg Normal [facility] Comment on above: Performed By: #### C MPN, LDO #### [facility] (DEFAULT) [address] [place] [address] CREAT/GFRon 12-24-2024 Creatinine [Mass/Vol] 0.69 mg/dL 0.50 - 1.20 mg/dL [facility] GFR/1.73 sq M.predicted CKD-EPI (S/P/Bld) [Vol rate/Area] - PINF [facility] Comment on above: Reported eGFR is bas ed on the CKD-EPI 2020 equation using creatinine, age, and sex. Interpretation and review of laboratory results Normal [facility] Test performed at ad dress of the patient encounter. [facility] GASTRIN - NON-STIMULATEDon 0 12-24-2024 Gastrin 1296 pg/mL High [facility] Comment on above: Result Comment: REFERENCE VALUE <100 Reference ranges valid for >= 8 hour fast. Test Performed by: [facility] [address] [place] [address] Allergy Specialist: Juana Recio Ph.D.; CLIA# [id number] Performed By: #### C MPN, LDO #### [facility] (DEFAULT) [address] [place] [address] LACTATE DEHYDROGENASEon 06-0 Interpretation and review of laboratory results Normal [facility] LDH Lactate to pyruvate reaction [Catalytic activity/Vol] 162 U/L 100 - 190 U/L [facility] LD Total 162 U/L Normal 100-190 [facility] Comment on above: Performed By: #### C NAHED, LDO #### [facility] (DEFAULT) [address] [address] LD Total 170 U/L Normal 100-190 [facility] Comment on above: Performed By: #### C MPN, LDO #### [facility] (DEFAULT) [address] [address] METHYLMALONIC ACIDon 025 METHYLMALONIC ACID 0.34 nmol/mL Normal <=0.40 [facility] Comment on above: Result Comment: ADDITIONAL INFORMATION This test was developed and its performance characteristics determined by [facility] in a manner consistent with CLIA requirements. This test has not been cleared or approved by the U.S. Food and Drug Administration. Test Performed by: [facility] [place] [place] [address] Allergy Specialist: Juana Recio Ph.D.; CLIA# [id number] Performed By: #### Char DOCKERY, LDO #### [facility] (DEFAULT) [address] [place] [address] No Panel Informationon 12-24 [facility] PANCREATIC POLYPEPTIDEon Pancreatic Polypeptide 739 pg/mL High <291 [facility] Comment on above: Result Comment: ADDITIONAL INFORMATION This test was developed and its performance characteristics determined by [facility] in a manner consistent with CLIA requirements. This test has not been cleared or approved by the U.S. Food and Drug Administration. Test Performed by: [facility] [address] [place] [id number] Allergy Specialist: Juana Recio Ph.D.; CLIA# [id number] Performed By: #### C MPN, LDO #### [facility] ([facility] [address] [place] [address] LABORATORYOrdered By: Anali Levy on 12-02-2024 Albumin DL <= 20 mg/L (U) [Mass/Vol] 229.1 mg/L Invalid Interpretation Code AO ADM SS Albumin/Creatinine DL <= 20 mg/L (U) [Mass ratio] 308 mg/G High 0 - 30 mg/G AO Chemistry S Creatinine (U) [Mass/Vol] 74.4 mg/dL Normal 29.0 - 226.0 mg/dL AO ADM SS MALBRon 12-02-2024 U Creatinine 74.4 mg/dL Normal 29.0-226.0 [facility] Comment on above: Performed By: #### M ALBR #### [address] [address] U Microalb 229.1 mg/L Normal [facility] Comment on above: Performed By: #### M ALBR #### [address] [address] U Ratio Alb/Cre 308 mg/G High 0-30 [facility] Comment on above: Performed By: #### M ALBR #### [address] [address] No Panel Informationon 12-02 Culture Urine 50,000 - 100,000 cfu /ml Mixed growth consistent with normal urogenital keiko. [facility] Work Phone: .Auto Diffon 11-06-2024 Basophil, Absolute 0.0 10 3/mcL Normal 0.0-0.[address] [facility] Comment on above: Performed By: #### C MP, ADIFF, CBC, PBNP, GFR, ANEU #### [place] [address] [place], [place] [address] Basophils/100 WBC (Bld) 0.5 % Normal 0.0-2.5 [facility] Comment on above: Performed By: #### C MP, ADIFF, CBC, PBNP, GFR, ANEU #### [address] [address] Eosinophil, Absolute 0.2 10 3/mcL Normal 0.0-0.7 [facility] Comment on above: Performed By: #### C MP, ADIFF, CBC, PBNP, GFR, ANEU #### [address] [address] Eosinophils/100 WBC (Bld) 2.3 % Normal 0.0-6.0 [facility] Comment on above: Performed By: #### C MP, ADIFF, CBC, PBNP, GFR, ANEU #### [address] [address] Lymphocyte, Absolute 2.2 10 3/mcL Normal 0.9-4.3 [facility] Comment on above: Performed By: #### C MP, ADIFF, CBC, PBNP, GFR, ANEU #### [address] [address] Lymphocytes/100 WBC (Bld) 29.0 % Normal 20.0-40.0 [facility] Comment on above: Performed By: #### C MP, ADIFF, CBC, PBNP, GFR, ANEU #### [address] [address] Monocyte, Absolute 0.4 10 3/mcL Normal 0.1-1.[address] [facility] Comment on above: Performed By: #### C MP, ADIFF, CBC, PBNP, GFR, ANEU #### [address] [address] Monocytes/100 WBC (Bld) 5.0 % Normal 2.0-13.0 [facility] Comment on above: Performed By: #### C MP, ADIFF, CBC, PBNP, GFR, ANEU #### [address] [address] Neutrophils/100 WBC (Bld) 63.2 % Normal 50.0-75.0 [facility] Comment on above: Performed By: #### C MP, ADIFF, CBC, PBNP, GFR, ANEU #### [address] [address] .GFRon 11-06-2024 Estimated Glomerular Filtration Rate 74 ml/min/1.73sqm Normal [facility] Comment on above: Result Comment: Stages of Chronic Kidney Disease (CKD) Stage Description eGFR(ml/min/1.73 sq.m.) CKD 1 Normal kidney function or >=90 normal kindney function with possible kidney damage (ex. Proteinuria) CKD 2 Kidney damage with mild loss 60-89 of kidney function CKD 3a Mild to moderate loss of kidney 45-59 function CKD 3b Moderate to severe loss of 30-44 of kindey function CKD 4 Severe loss of kidney function 15-29 CKD 5 Kidney failure <15 Note: (go live 2024) the eGFR calculation was updated to the 2020 CKD-EPI creatinine equation without a race factor to calculate the eGFR results. Performed By: #### C MP, ADIFF, CBC, PBNP, GFR, ANEU #### [address] [address] .NEUABSon 11-06-2024 Neutrophil, Absolute 4.9 10 3/mcL Normal 2.3-8.1 [facility] Comment on above: Performed By: #### C MP, ADIFF, CBC, PBNP, GFR, ANEU #### [address] [address] CBCon 11-06-2024 Erythrocyte distribution width (RBC) [Ratio] 16.2 % High 11.5-15.5 [facility] Comment on above: Performed By: #### C MP, ADIFF, CBC, PBNP, GFR, ANEU #### [address] [address] Hematocrit (Bld) [Volume fraction] 35.3 % Normal 34.0-46.0 [facility] Comment on above: Performed By: #### C MP, ADIFF, CBC, PBNP, GFR, ANEU #### [address] [address] Hgb 11.4 G/dL Low 12.0-16.0 [facility] Comment on above: Performed By: #### C MP, ADIFF, CBC, PBNP, GFR, ANEU #### [address] [address] MCH (RBC) [Entitic mass] 25.3 pg Low 27.0-33.0 [facility] Comment on above: Performed By: #### C MP, ADIFF, CBC, PBNP, GFR, ANEU #### [address] [address] MCHC 32.5 G/dL Normal 32.0-36.0 [facility] Comment on above: Performed By: #### C MP, ADIFF, CBC, PBNP, GFR, ANEU #### [address] [address] MCV (RBC) [Entitic vol] 78.0 fL Low 80.0-99.0 [facility] Comment on above: Performed By: #### C MP, ADIFF, CBC, PBNP, GFR, ANEU #### [address] [address] Platelet 189 10 3/mcL Normal 150-450 [facility] Comment on above: Performed By: #### C MP, ADIFF, CBC, PBNP, GFR, ANEU #### [address] [address] Platelet mean volume (Bld) [Entitic vol] 8.3 fL Normal 6.6-10.5 [facility] Comment on above: Performed By: #### C MP, ADIFF, CBC, PBNP, GFR, ANEU #### [address] [address] RBC 4.52 10 6/mcL Normal 4.10-5.30 [facility] Comment on above: Performed By: #### C MP, ADIFF, CBC, PBNP, GFR, ANEU #### [address] [address] WBC 7.7 10 3/mcL Normal 4.5-10.8 [facility] Comment on above: Performed By: #### C MP, ADIFF, CBC, PBNP, GFR, ANEU #### [place] [id number] CMPon 11-06-2024 Albumin Level 2.9 G/dL Low 3.5-5.0 [facility] Comment on above: Performed By: #### C MP, ADIFF, CBC, PBNP, GFR, ANEU #### [place] [address] Albumin/Globulin [Mass ratio] 0.5 {ratio} Low 1.1-2.5 [facility] Comment on above: Performed By: #### C MP, ADIFF, CBC, PBNP, GFR, ANEU #### [place] [address] ALP [Catalytic activity/Vol] 194 U/L High 40-135 [facility] Comment on above: Performed By: #### C MP, ADIFF, CBC, PBNP, GFR, ANEU #### [place] [address] ALT [Catalytic activity/Vol] 89 U/L High 14-59 [facility] Comment on above: Performed By: #### C MP, ADIFF, CBC, PBNP, GFR, ANEU #### [place] [address] AST [Catalytic activity/Vol] 100 U/L High 10-40 [facility] Comment on above: Performed By: #### C MP, ADIFF, CBC, PBNP, GFR, ANEU #### [place] [address] Bili Total 0.3 mg/dL Normal 0.2-1.0 [facility] Comment on above: Result Comment: Use of this assay is not recommended for patients undergoing treatment with eltrombopag due to the potential for falsely elevated results. Performed By: #### C MP, ADIFF, CBC, PBNP, GFR, ANEU #### [place] [address] BUN/Creatinine Ratio 24 ratio Normal 7-[address] [facility] Comment on above: Performed By: #### C MP, ADIFF, CBC, PBNP, GFR, ANEU #### [address] [address] Calcium [Mass/Vol] 8.7 mg/dL Normal 8.4-10.2 [facility] Comment on above: Performed By: #### C MP, ADIFF, CBC, PBNP, GFR, ANEU #### [address] [address] Chloride [Moles/Vol] 97 mmol/L Low 98-[address] [facility] Comment on above: Performed By: #### C MP, ADIFF, CBC, PBNP, GFR, ANEU #### [address] [address] CO2 [Moles/Vol] 32 mmol/L High 22-29 [facility] Comment on above: Performed By: #### C MP, ADIFF, CBC, PBNP, GFR, ANEU #### [address] [address] Creatinine [Mass/Vol] 0.91 mg/dL Normal 0.55-1.02 [facility] Comment on above: Result Comment: Test ing performed on Siemens Dimension EXL analyzer using a modified kinetic Avila technique. Performed By: #### C MP, ADIFF, CBC, PBNP, GFR, ANEU #### [address] [address] Electrolyte Balance 1.0 mEq/L Low 4.0-15.0 [facility] Comment on above: Performed By: #### C MP, ADIFF, CBC, PBNP, GFR, ANEU #### [address] [address] Globulin 5.6 G/dL High 1.5-3.8 [facility] Comment on above: Performed By: #### C MP, ADIFF, CBC, PBNP, GFR, ANEU #### [address] [address] Glucose [Mass/Vol] 394 mg/dL High 70-105 [facility] Comment on above: Performed By: #### C MP, ADIFF, CBC, PBNP, GFR, ANEU #### [address] [address] Potassium [Moles/Vol] 4.9 mmol/L Normal 3.5-5.1 [facility] [facility] Comment on above: Performed By: #### C MP, ADIFF, CBC, PBNP, GFR, ANEU #### [address] [address] Sodium [Moles/Vol] 130 mmol/L Low 136-145 [facility] Comment on above: Performed By: #### C MP, ADIFF, CBC, PBNP, GFR, ANEU #### [address] [address] Total Protein 8.5 G/dL High 6.4-8.2 [facility] Comment on above: Performed By: #### C MP, ADIFF, CBC, PBNP, GFR, ANEU #### [address] [address] Urea nitrogen [Mass/Vol] 22 mg/dL High 7-18 [facility] Comment on above: Performed By: #### C MP, ADIFF, CBC, PBNP, GFR, ANEU #### [address] [address] LABORATORYOrdered By: SYSTEM SYSTEM on 11-06-2024 Albumin BCP dye [Mass/Vol] 2.9 G/dL Low 3.5 - 5.0 G/dL AO ADM SS Albumin/Globulin [Mass ratio] 0.5 {ratio} Low 1.1 - 2.5 ratio AO ADM SS ALP [Catalytic activity/Vol] 194 U/L High 40 - 135 U/L AO ADM SS ALT With P-5'-P [Catalytic activity/Vol] 89 U/L High 14 - 59 U/L AO ADM SS AST With P-5'-P [Catalytic activity/Vol] 100 U/L High 10 - 40 U/L AO ADM SS Basophils (Bld) [#/Vol] 0.0 103/mcL Normal 0.0 - 0.3 10^3/mcL AO Workflow SS Basophils/100 WBC (Bld) 0.5 % Normal 0.0 - 2.5 % AO Workflow SS Bilirubin [Mass/Vol] 0.3 mg/dL Normal 0.2 - 1 .0 mg/dL AO ADM SS Comment on above: Interpretive Data: U se of this assay is not recommended for patients undergoing treatment with eltrombopag due to the potential for falsely elevated results. Calcium [Mass/Vol] 8.7 mg/dL Normal 8.4 - 10. 2 mg/dL AO ADM SS Chloride [Moles/Vol] 97 mmol/L Low 98 - 10 7 mmol/L AO ADM SS CO2 [Moles/Vol] 32 mmol/L High 22 - 29 mmol/L AO ADM SS Creatinine [Mass/Vol] 0.91 mg/dL Normal 0.55 - 1.02 mg/dL AO ADM SS Comment on above: Interpretive Data: T esting performed on Siemens Dimension EXL analyzer using a modified kinetic Avila technique. Electrolyte Balance 1.0 mEq/L Low 4.0 - 15 .0 mEq/L AO ADM SS Eosinophil, Absolute 0.2 103/mcL Normal 0.0 - 0 .7 10^3/mcL AO Workflow SS Eosinophils/100 WBC (Bld) 2.3 % Normal 0.0 - 6.0 % AO Workflow SS Erythrocyte distribution width (RBC) [Ratio] 16.2 % High 11.5 - 15.5 % AO Workflow SS Estimated Glomerular Filtration Rate 74 ml/min/1.73sqm Invalid Interpretation Code AO Chemistry S Comment on above: Interpretive Data: Stages of Chronic Kidney Disease (CKD) Stage Description eGFR(ml/min/1.73 sq.m.) CKD 1 Normal kidney function or >=90 normal kindney function with possible kidney damage (ex. Proteinuria) CKD 2 Kidney damage with mild loss 60-89 of kidney function CKD 3a Mild to moderate loss of kidney 45-59 function CKD 3b Moderate to severe loss of 30-44 of kindey function CKD 4 Severe loss of kidney function 15-29 CKD 5 Kidney failure <15 Note: (go live 2024) the eGFR calculation was updated to the 2020 CKD-EPI creatinine equation without a race factor to calculate the eGFR results. Globulin 5.6 G/dL High 1.5 - 3.8 G/dL AO ADM SS Glucose [Mass/Vol] 394 mg/dL High 70 - 105 mg/dL AO ADM SS Hematocrit (Bld) [Volume fraction] 35.3 % Normal 34.0 - 46.0 % AO Workflow SS Hemoglobin (Bld) [Mass/Vol] 11.4 G/dL Low 12.0 - 16.0 G/dL AO Workflow SS Lymphocytes (Bld) [#/Vol] 2.2 103/mcL Normal 0.9 - 4.3 10^3/mcL AO Workflow SS Lymphocytes/100 WBC (Bld) 29.0 % Normal 20.0 - 40.0 % AO Workflow SS MCH (RBC) [Entitic mass] 25.3 pg Low 27.0 - 33.0 pg AO Workflow SS MCHC 32.5 G/dL Normal 32.0 - 36.0 G/dL AO Workflow SS MCV (RBC) [Entitic vol] 78.0 fL Low 80.0 - 99.0 fL AO Workflow SS Monocytes (Bld) [#/Vol] 0.4 103/mcL Normal 0.1 - 1.4 10^3/mcL AO Workflow SS Monocytes/100 WBC (Bld) 5.0 % Normal 2.0 - 13.0 % AO Workflow SS Natriuretic peptide.B prohormone N-Terminal [Mass/Vol] 77 pg/mL Normal 0 - 125 pg/mL AO ADM SS Comment on above: Interpretive Data: N T-proBNP results of less than 300 pg/mL effectively rules out acute congestive heart failure with 99% negative predictive value. Neutrophils (Bld) [#/Vol] 4.9 103/mcL Normal 2.3 - 8.1 10^3/mcL AO Workflow SS Neutrophils/100 WBC (Bld) 63.2 % Normal 50.0 - 75.0 % AO Workflow SS Platelet mean volume (Bld) [Entitic vol] 8.3 fL Normal 6.6 - 10.5 fL AO Workflow SS Platelets (Bld) [#/Vol] 189 103/mcL Normal 150 - 450 10^3/mcL AO Workflow SS Potassium [Moles/Vol] 4.9 mmol/L Normal 3.5 - 5.1 mmol/L AO ADM SS Protein [Mass/Vol] 8.5 G/dL High 6.4 - 8.2 G/dL AO ADM SS RBC (Bld) [#/Vol] 4.52 106/mcL Normal 4.10 - 5.3 0 10^6/mcL AO Workflow SS Sodium [Moles/Vol] 130 mmol/L Low 136 - 145 mmol/L AO ADM SS Urea nitrogen [Mass/Vol] 22 mg/dL High 7 - 18 mg/dL AO ADM SS Urea nitrogen/Creatinine [Mass ratio] 24 ratio Normal 7 - 27 ratio AO ADM SS WBC (Bld) [#/Vol] 7.7 103/mcL Normal 4.5 - 10.8 10^3/mcL AO Workflow SS PBNPon 11-06-2024 Natriuretic peptide B (Bld) [Mass/Vol] 77 pg/mL Normal 0-125 [facility] Comment on above: Result Comment: NT-p roBNP results of less than 300 pg/mL effectively rules out acute congestive heart failure with 99% negative predictive value. Performed By: #### C MP, ADIFF, CBC, PBNP, GFR, ANEU #### [facility] [address], [place] [address] Urine Cultureon 11-06-2024 URC Organism is too fast idious for routine susceptibility studies. Urine Culture Aerococcus urinae Austin Count 50,000-80,000 Normal [facility] Comment on above: Performed By: #### M 100.2200 ####[facility] [address] [place], [place], [id number] Absolute lymphocyte countOrd ered By: Velasquez Hill on 11-03-2024 Lymphocytes Auto (Unsp spec) [#/Vol] 2.97 10*3/uL 0.83-4.51 [facility] Absolute neutrophil countOrd ered By: Velasquez Hill on 11-03-2024 Neutrophils (Bld) [#/Vol] 5.6 10*3/uL 2.0-7.7 [facility] Anion gap in Serum or Plasma Ordered By: Velasquez Hill on 11-03-2024 Anion gap [Moles/Vol] 8 mmol/L 12-03 [facility] Automated lymphocyte count a s percentage of total leukocytesOrdered By: Velasquez Hill on 11-03-2024 Lymphocytes/100 WBC Auto (Unsp spec) 31.4 % 19-41 [facility] BUN/creatinine ratioOrdered By: Velasquez Hill on 11-03-2024 Urea nitrogen/Creatinine [Mass ratio] 23.0 mg/mg High - [facility] Basic Metabolic Profile (BMP )on 11-03-2024 BUN/CRE 23.0 RATIO High 05-10 [facility] Comment on above: Performed By: #### L 501.6901, L500.2500, L100.0100 ####[facility] [address] [place], [address] Calcium [Mass/Vol] 9.3 mg/dL Normal 7.6-11.0 [facility] Comment on above: Performed By: #### L 501.6901, L500.2500, L100.0100 ####[facility] [address] [place], [address] Chloride [Moles/Vol] 98 mmol/L Normal 98-108 [facility] Comment on above: Performed By: #### L 501.6901, L500.2500, L100.0100 ####[facility] [address] [place], [address] CO2 [Moles/Vol] 25.3 mmol/L Normal 21.0-32.0 [facility] Comment on above: Performed By: #### L 501.6901, L500.2500, L100.0100 ####[facility] [address] [place], [address] Creatinine [Mass/Vol] 1.02 mg/dL Normal 0.70-1.20 [facility] Comment on above: Performed By: #### L 501.6901, L500.2500, L100.0100 ####[facility] [address] [place], [address] ECRCL 70.28 ml/min Normal 50-250 [facility] Comment on above: Performed By: #### L 501.6901, L500.2500, L100.0100 ####[facility] [address] [place], [address] GAP 8 Normal 5-15 [facility] Comment on above: Performed By: #### L 501.6901, L500.2500, L100.0100 ####[facility] [address] [place], [address] GFR/1.73 sq M.predicted among non-blacks MDRD (S/P/Bld) [Vol rate/Area] 64 mL/min/{1.73_m2} Normal >60 [facility] Comment on above: Result Comment: mL/m in/1.73m2 CKD-EPI Creatinine Equation (2020) Performed By: #### L 501.6901, L500.2500, L100.0100 ####[facility] [address] [place], [address] Glucose [Mass/Vol] 391 mg/dL High 70-99 [facility] Comment on above: Performed By: #### L 501.6901, L500.2500, L100.0100 ####[facility] [address] [place], [address] Potassium [Moles/Vol] 4.9 mmol/L Normal 3.3-5.1 [facility] Comment on above: Performed By: #### L 501.6901, L500.2500, L100.0100 ####[facility] [address] [place], [address] Sodium [Moles/Vol] 132 mmol/L Low 133-145 [facility] Comment on above: Performed By: #### L 501.6901, L500.2500, L100.0100 ####[facility] [address] [place], [address] Urea nitrogen [Mass/Vol] 24 mg/dL High 4-19 [facility] Comment on above: Performed By: #### L 501.6901, L500.2500, L100.0100 ####[facility] [address] [place], [address] Basophil percentageOrdered B y: Velasquez Hill on 11-03-2024 Basophils/100 WBC (Bld) 0.7 % 0-1 [facility] Beta hydroxybutyrate [Mass/V ol]Ordered By: Velasquez Hill on 11-03-2024 Beta-Hydroxybutyric Acid mmol/L 0.1 mmol/L 0.0-0.3 [facility] Beta-Hydroxbytyrateon 2024 BETA-HYDROXYBUT 0.1 mmol/L Normal 0.0-0.3 [facility] Comment on above: Performed By: #### L 501.6901, L500.2500, L100.0100 ####[facility] [address] [place], [address] Beta-hydroxybutyrateOrdered By: Velasquez Hill on 11-03-2024 Beta hydroxybutyrate [Mass/Vol] 0.1 mmol/L 0.0-0.3 [facility] Bilirubin Test strip Ql (U)O rdered By: Velasquezjack Hill on 11-03-2024 Bilirubin Ql (U) Negative Negative [facility] CBC W/Diff, Automatedon 10-20 Absolute Lymph 2.97 X10 3/uL Normal 0.83-4.51 [facility] Comment on above: Performed By: #### L 501.6901, L500.2500, L100.0100 ####[facility] [address] [place], [address] Absolute Neut 5.6 X10 3/uL Normal 2.0-7.7 [facility] Comment on above: Performed By: #### L 501.6901, L500.2500, L100.0100 ####[facility] [address] [place], [address] Basophils/100 WBC (Bld) 0.7 % Normal 0-1 [facility] Comment on above: Performed By: #### L 501.6901, L500.2500, L100.0100 ####[facility] [address] [place], [address] Eosinophils/100 WBC (Bld) 1.9 % Normal 0-5 [facility] Comment on above: Performed By: #### L 501.6901, L500.2500, L100.0100 ####[facility] [address] [place], [address] Erythrocyte distribution width (RBC) [Ratio] 15.3 % High 11.6-14.6 [facility] Comment on above: Performed By: #### L 501.6901, L500.2500, L100.0100 ####[facility] [address] [place], [address] Hematocrit (Bld) [Volume fraction] 36.1 % Low 37-47 [facility] Comment on above: Performed By: #### L 501.6901, L500.2500, L100.0100 ####[facility] [address] [place], [address] Hemoglobin (Bld) [Mass/Vol] 11.7 g/dL Low 12.0-15.0 [facility] Comment on above: Performed By: #### L 501.6901, L500.2500, L100.0100 ####[facility] [address] [place], [address] IG% 1.800 High 0.0-0.9 [facility] Comment on above: Result Comment: IG% - Immature Granulocytes (promyelocytes, myelocytes andmetamyelocytes) > 1% indicates that a LEFT SHIFT is Present. Performed By: #### L 501.6901, L500.2500, L100.0100 ####[facility] [address] [place], [address] Lymphocytes/100 WBC (Bld) 31.4 % Normal 19-41 [facility] Comment on above: Performed By: #### L 501.6901, L500.2500, L100.0100 ####[facility] [address] [place], [address] MCH (RBC) [Entitic mass] 25.3 pg Low 27.0-32.0 [facility] Comment on above: Performed By: #### L 501.6901, L500.2500, L100.0100 ####[facility] [address] [place], [address] MCHC (RBC) [Mass/Vol] 32.4 g/dL Normal 32-36 [facility] Comment on above: Performed By: #### L 501.6901, L500.2500, L100.0100 ####[facility] [address] [place], [address] MCV (RBC) [Entitic vol] 78.1 fL Low 81-99 [facility] Comment on above: Performed By: #### L 501.6901, L500.2500, L100.0100 ####[facility] [address] [place], [address] Monocytes/100 WBC (Bld) 5.3 % Normal 0-10 [facility] Comment on above: Performed By: #### L 501.6901, L500.2500, L100.0100 ####[facility] [address] [place], [address] Neutrophils/100 WBC (Bld) 58.9 % Normal 47-70 [facility] Comment on above: Performed By: #### L 501.6901, L500.2500, L100.0100 ####[facility] [address] [place], [address] Nucleated RBC (Bld) [#/Vol] 0 10*3/uL Normal 0-5 [facility] Comment on above: Performed By: #### L 501.6901, L500.2500, L100.0100 ####[facility] [address] [place], [address] Platelet mean volume (Bld) [Entitic vol] 9.9 fL Normal 6.2-12.0 [facility] Comment on above: Performed By: #### L 501.6901, L500.2500, L100.0100 ####[facility] [address] [place], [address] Platelets (Bld) [#/Vol] 203 10*3/uL Normal 150-450 [facility] Comment on above: Performed By: #### L 501.6901, L500.2500, L100.0100 ####[facility] [address] [place], [address] RBC (Bld) [#/Vol] 4.62 10*6/uL Normal 4.2-5.4 [facility] Comment on above: Performed By: #### L 501.6901, L500.2500, L100.0100 ####[facility] [address] [place], [address] RDW SD 43.0 fl Normal 35.1-43.9 [facility] Comment on above: Performed By: #### L 501.6901, L500.2500, L100.0100 ####[facility] [address] [place], [address] WBC (Bld) [#/Vol] 9.5 10*3/uL Normal 4.4-11.0 [facility] Comment on above: Performed By: #### L 501.6901, L500.2500, L100.0100 ####[facility] [address] [place], [address] Carbon dioxide, total [Moles /volume] in Central venous bloodOrdered By: Velasquez Hill on 11-03-2024 CO2 [Moles/Vol] 25.3 mmol/L 21.0-32.0 [facility] Chloride assayOrdered By: Raymundo Hill on 11-03-2024 Chloride [Moles/Vol] 98 mmol/L 98-108 [facility] Emergency Department Summary on 11-03-2024 Emergency Department Summary Normal [facility] Eosinophil percentageOrdered By: Velasquez Hill on 11-03-2024 Eosinophils/100 WBC (Bld) 1.9 % 0-5 [facility] Epithelial cells.squamous LM Ql (Urine sed)Ordered By: Velasquez Hill on 11-03-2024 Epithelial cells.squamous LM.HPF (Urine sed) [#/Area] 0 /[HPF] 5-10 [facility] Erythrocyte distribution wid th (RBC) [Ratio]Ordered By: Velasquez Hill on 11-03-2024 Erythrocyte distribution width (RBC) [Entitic vol] 43.0 fL 35.1-43.9 [facility] Erythrocyte distribution wid th ratioOrdered By: Velasquez Hill on 11-03-2024 Erythrocyte distribution width (RBC) [Ratio] 15.3 % High 11.6-14.6 [facility] Erythrocyte distribution wid th standard deviationOrdered By: Velasquez Hill on 11-03-2024 Erythrocyte distribution width (RBC) [Ratio] 43.0 fl 35.1-43.9 [facility] Estimation of creatinine carol aranceOrdered By: Velasquez Hill on 11-03-2024 Estimated Creatinine Clearance Calc 70.28 ml/min 50-250 [facility] GFR/1.73 sq M.predicted jace g non-blacks MDRD (S/P/Bld) [Vol rate/Area]Ordered By: Velasquez Hill on 11-03-2024 Estimated GFR (MDRD) Non-Af Amer 64 >60 [facility] Comment on above: mL/min/1.73m2 CKD-EP I Creatinine Equation (2020) Glomerular filtration rate ( GFR) estimation/1.73 sq m using serum, plasma, or whole bOrdered By: Velasquez Hill on 11-03-2024 GFR/1.73 sq M.predicted among non-blacks MDRD (S/P/Bld) [Vol rate/Area] 64 mL/min/{1.73_m2} >60 [facility] Comment on above: mL/min/1.73m2 CKD-EP I Creatinine Equation (2020) Glucose Ql (U)Ordered By: Raymundo Hill on 11-03-2024 Glucose (U) [Mass/Vol] 1000 mg/dL High Normal [facility] Hematocrit Auto (Bld) [Volum e fraction]Ordered By: Velasquez Hill on 11-03-2024 Hematocrit (Bld) [Volume fraction] 36.1 % Low 37-47 [facility] Hemoglobin measurementOrdere d By: Velasquez Hill on 11-03-2024 Hemoglobin (Bld) [Mass/Vol] 11.7 g/dL Low 12.0-15.0 [facility] Immature granulocytes/100 WB C Auto (Bld)Ordered By: Velasquez Hill on 11-03-2024 Immature granulocytes/100 WBC (Bld) 1.800 % High 0.0-0.9 [facility] Comment on above: IG% - Immature Granu locytes (promyelocytes, myelocytes and metamyelocytes) > 1% indicates that a LEFT SHIFT is Present. Ketones Test strip Ql (U)Ord ered By: Velasquez Hill on 11-03-2024 Ketones Ql (U) Negative Negative [facility] Lymphocytes Auto (Unsp spec) [#/Vol]Ordered By: Velasquez Hill on 11-03-2024 Lymphocytes (Bld) [#/Vol] 2.97 10*3/uL 0.83-4.51 [facility] Lymphocytes/100 WBC Auto (Un sp spec)Ordered By: Velasquez Hill on 11-03-2024 Lymphocytes/100 WBC (Bld) 31.4 % 19-41 [facility] MCV (mean corpuscular volume ) determinationOrdered By: Velasquez Hill on 11-03-2024 MCV (RBC) [Entitic vol] 78.1 fL Low 81-99 [facility] Mean corpuscular hemoglobin (MCH) determinationOrdered By: Velasquez Hill on 11-03-2024 MCH (RBC) [Entitic mass] 25.3 pg Low 27.0-32.0 [facility] Mean corpuscular hemoglobin concentration (MCHC) determinationOrdered By: Velasquez Hill on 11-03-2024 MCHC (RBC) [Mass/Vol] 32.4 g/dL 32-36 [facility] Mean platelet volume determi nationOrdered By: Vealsquez Hill on 11-03-2024 Platelet mean volume (Bld) [Entitic vol] 9.9 fL 6.2-12.0 [facility] Microscopic analysis of urin e for red blood cells (RBC)Ordered By: Velasquez Hill on 11-03-2024 Microscopic analysis of urine for red blood cells (RBC) 25-50 SEEN /hpf 0-5 [facility] Urine RBC 25-50 SEEN /hpf 0-5 [facility] Monocyte percentageOrdered B y: Velasquez Hill on 11-03-2024 Monocytes/100 WBC (Bld) 5.3 % 0-10 [facility] Mucus LM Ql (Urine sed)Order ed By: Velasquez Hill on 11-03-2024 Mucus Ql (Urine sed) 0 SEEN /hpf [facility] Neutrophil percentageOrdered By: Velasquez Hill on 11-03-2024 Neutrophils/100 WBC (Bld) 58.9 % 47-70 [facility] Nitrite Test strip Ql (U)Ord ered By: Velasquez Hill on 11-03-2024 Nitrite Ql (U) Negative Negative [facility] Nucleated red blood cell per centageOrdered By: Velasquez Hill on 11-03-2024 Nucleated RBC/100 WBC (Bld) [Ratio] 0 % 0-5 [facility] Platelet countOrdered By: Raymundo Hill on 11-03-2024 Platelets (Bld) [#/Vol] 203 10*3/uL 150-450 [facility] Potassium (Unsp spec) [Mass/ Vol]Ordered By: Velasquez Hill on 11-03-2024 Potassium [Moles/Vol] 4.9 mmol/L 3.3-5.1 [facility] Potassium measurement (mass/ volume)Ordered By: Velasquez Hill on 11-03-2024 Potassium (Unsp spec) [Mass/Vol] 4.9 mmol/L 3.3-5.1 [facility] Protein Test strip Ql (U)Ord ered By: Velasquez Hill on 11-03-2024 Protein Ql (U) 30 mg/dl High Negative [facility] RBC Auto (Bld) [#/Vol]Ordere d By: Velasquezjack Hill on 11-03-2024 RBC (Bld) [#/Vol] 4.62 10*6/uL 4.2-5.4 [facility] Serum creatinine measurement (mass/volume)Ordered By: Velasquez Hill on 11-03-2024 Creatinine [Mass/Vol] 1.02 mg/dL 0.70-1.20 [facility] Serum glucose measurement (m ass/volume)Ordered By: Velasquez Hill on 11-03-2024 Glucose [Mass/Vol] 391 mg/dL High 70-99 [facility] Serum or plasma calcium janie urement (mass/volume)Ordered By: Velasquez Hill on 11-03-2024 Calcium [Mass/Vol] 9.3 mg/dL 7.6-11.0 [facility] Serum or plasma urea nitroge n measurement (mass/volume)Ordered By: Velasquez Hill on 11-03-2024 Urea nitrogen [Mass/Vol] 24 mg/dL High 4-19 [facility] Sodium levelOrdered By: Velasquez Hill on 11-03-2024 Sodium [Moles/Vol] 132 mmol/L Low 133-145 [facility] Squamous epithelial cells de tection in urine sediment by light microscopyOrdered By: Velasquez Hill on 11-03-2024 Epithelial cells.squamous LM Ql (Urine sed) 0-5 SEEN /hpf 5-10 [facility] Urinalysis, Completeon 11-03 BACTERIA 1+ /hpf Normal None Seen [facility] Comment on above: Order Comment: CLEAN CATCH Performed By: #### L 400.0001 ####[facility] [address] [place], [place], [id number] EPI,SQUAMOUS 0-5 SEEN Normal 5-10 [facility] Comment on above: Order Comment: CLEAN CATCH Performed By: #### L 400.0001 ####[facility] [address] [place], [place], [id number] RBC 25-50 SEEN Normal 0-5 [facility] Comment on above: Order Comment: CLEAN CATCH Performed By: #### L 400.0001 ####[facility] [address] [place], [address] WBC 25-50 SEEN Normal 0-5 [facility] Comment on above: Order Comment: CLEAN CATCH Performed By: #### L 400.0001 ####[facility] [address] [place], [address] Mucus Ql (Urine sed) 0 SEEN Normal [facility] Comment on above: Order Comment: CLEAN CATCH Performed By: #### L 400.0001 ####[facility] [address] [place], [address] Urine blood detectionOrdered By: Velasquez Hill on 11-03-2024 Urine Occult Blood 150 /ul High Negative [facility] Urine clarityOrdered By: Loan Hill on 11-03-2024 Clarity (U) Clear Clear [facility] Urine color determinationOrd ered By: Velasquez Hlil on 11-03-2024 Color (U) Yellow Yellow [facility] Urine cultureOrdered By: Loan Hill on 11-03-2024 Bacteria identified Cx Nom (U) Aerococcus urinae Abnormal [facility] Urine glucose detectionOrder ed By: Velasquez Hill on 11-03-2024 Glucose Ql (U) 1000 mg/dl High Normal [facility] Urine leukocyte esterase det ection by dipstickOrdered By: Velasquez Hill on 11-03-2024 Leukocyte esterase Test strip Ql (U) 25 /ul High Negative [facility] Urine pHOrdered By: Velasquez calderon on 11-03-2024 pH (U) 6.0 [pH] 5.0 - 8.0 [facility] Urine sediment bacteria coun t by microscopy (number/high power field)Ordered By: Velasquez Hill on 11-03-2024 Bacteria LM.HPF (Urine sed) [#/Area] 1 /[HPF] None Seen [facility] Urine specific gravity measu rementOrdered By: Velasquez Hill on 11-03-2024 Specific gravity (U) [Rel density] 1.015 1.002-1.030 [facility] Urine urobilinogen measureme ntOrdered By: Velasquez Hill on 11-03-2024 Urobilinogen Ql (U) Normal mg/dl Normal [facility] Urobilinogen Ql (U)Ordered B y: Velasquez Sergio on 11-03-2024 Urine Urobilinogen Normal mg/dl Normal [facility] White blood cell (WBC) count Ordered By: Velasquez Hill on 11-03-2024 WBC (Bld) [#/Vol] 9.5 10*3/uL 4.4-11.0 [facility] White blood cell countOrdere d By: Velasquez Hill on 11-03-2024 Urine WBC 25-50 SEEN /hpf 0-5 [facility] White blood cell count 25-50 SEEN /hpf 0-5 [facility] Pulmonary Visit Reporton Pulmonary Visit Report Normal [facility] 6 Minute Walk Teston 025 6 Minute Walk Test Normal [facility] MALBRon 10-04-2024 U Ratio Alb/Cre 454 mg/G High 0-30 [facility] Comment on above: Performed By: #### C MP, ADIFF, CBC, PBNP, GFR, ANEU #### [facility] [address], [place] [address] Emergency Department Summary on 09-30-2024 Emergency Department Summary Normal [facility] Foot min 3 Viewson 5 Foot min 3 Views Normal [facility] Absolute lymphocyte countOrd ered By: Scott Berrios on 09-24-2024 Lymphocytes Auto (Unsp spec) [#/Vol] 2.28 10*3/uL 0.83-4.51 [facility] Absolute neutrophil countOrd ered By: Scott Berrios on 09-24-2024 Neutrophils (Bld) [#/Vol] 7.9 10*3/uL High 2.0-7.7 [facility] Automated lymphocyte count a s percentage of total leukocytesOrdered By: Scott Berrios on 09-24-2024 Lymphocytes/100 WBC Auto (Unsp spec) 20.7 % 19-41 [facility] Basophil percentageOrdered B y: Scott Berrios on 09-24-2024 Basophils/100 WBC (Bld) 0.6 % 0-1 [facility] CBC W/Diff, Automatedon 03-0 6-5 Absolute Lymph 2.28 X10 3/uL Normal 0.83-4.51 [facility] Comment on above: Performed By: #### L 100.0100 ####[facility] [address] [place], [address] Absolute Neut 7.9 X10 3/uL High 2.0-7.7 [facility] Comment on above: Performed By: #### L 100.0100 ####[facility] [address] [place], [address] Basophils/100 WBC (Bld) 0.6 % Normal 0-1 [facility] Comment on above: Performed By: #### L 100.0100 ####[facility] [address] [place], [address] Eosinophils/100 WBC (Bld) 2.0 % Normal 0-5 [facility] Comment on above: Performed By: #### L 100.0100 ####[facility] [address] [place], [address] Erythrocyte distribution width (RBC) [Ratio] 15.5 % High 11.6-14.6 [facility] Comment on above: Performed By: #### L 100.0100 ####[facility] [address] [place], [address] Hematocrit (Bld) [Volume fraction] 36.8 % Low 37-47 [facility] Comment on above: Performed By: #### L 100.0100 ####[facility] [address] [place], [address] Hemoglobin (Bld) [Mass/Vol] 11.7 g/dL Low 12.0-15.0 [facility] Comment on above: Performed By: #### L 100.0100 ####[facility] [address] [place], [address] IG% 1.100 High 0.0-0.9 [facility] Comment on above: Result Comment: IG% - Immature Granulocytes (promyelocytes, myelocytes andmetamyelocytes) > 1% indicates that a LEFT SHIFT is Present. Performed By: #### L 100.0100 ####[facility] [address] [place], [address] Lymphocytes/100 WBC (Bld) 20.7 % Normal 19-41 [facility] Comment on above: Performed By: #### L 100.0100 ####[facility] [address] [place], [address] MCH (RBC) [Entitic mass] 25.0 pg Low 27.0-32.0 [facility] Comment on above: Performed By: #### L 100.0100 ####[facility] [address] [place], [address] MCHC (RBC) [Mass/Vol] 31.8 g/dL Low 32-36 [facility] Comment on above: Performed By: #### L 100.0100 ####[facility] [address] [place], [address] MCV (RBC) [Entitic vol] 78.6 fL Low 81-99 [facility] Comment on above: Performed By: #### L 100.0100 ####[facility] [address] [place], [address] Monocytes/100 WBC (Bld) 4.4 % Normal 0-10 [facility] Comment on above: Performed By: #### L 100.0100 ####[facility] [address] [place], [address] Neutrophils/100 WBC (Bld) 71.2 % High 47-70 [facility] Comment on above: Performed By: #### L 100.0100 ####[facility] [address] [place], [address] Nucleated RBC (Bld) [#/Vol] 0 10*3/uL Normal 0-5 [facility] Comment on above: Performed By: #### L 100.0100 ####[facility] [address] [place], [address] Platelet mean volume (Bld) [Entitic vol] 10.4 fL Normal 6.2-12.0 [facility] Comment on above: Performed By: #### L 100.0100 ####[facility] [address] [place], [address] Platelets (Bld) [#/Vol] 261 10*3/uL Normal 150-450 [facility] Comment on above: Performed By: #### L 100.0100 ####[facility] [address] [place], [address] RBC (Bld) [#/Vol] 4.68 10*6/uL Normal 4.2-5.4 [facility] Comment on above: Performed By: #### L 100.0100 ####[facility] [address] [place], [address] RDW SD 42.7 fl Normal 35.1-43.9 [facility] Comment on above: Performed By: #### L 100.0100 ####[facility] [address] [place], [address] WBC (Bld) [#/Vol] 11.0 10*3/uL Normal 4.4-11.0 [facility] Comment on above: Performed By: #### L 100.0100 ####[facility] [address] [place], [address] Endocrinology Visit Reporton 09-24-2024 Endocrinology Visit Report Normal [facility] Eosinophil percentageOrdered By: Scott Berrios on 09-24-2024 Eosinophils/100 WBC (Bld) 2.0 % 0-5 [facility] Erythrocyte distribution wid th ratioOrdered By: Scott Berrios on 09-24-2024 Erythrocyte distribution width (RBC) [Ratio] 15.5 % High 11.6-14.6 [facility] Erythrocyte distribution wid th standard deviationOrdered By: Scott Berrios on 09-24-2024 Erythrocyte distribution width (RBC) [Entitic vol] 42.7 fL 35.1-43.9 [facility] Erythrocyte distribution width (RBC) [Ratio] 42.7 fl 35.1-43.9 [facility] Hematocrit Auto (Bld) [Volum e fraction]Ordered By: Scott Berrios on 09-24-2024 Hematocrit (Bld) [Volume fraction] 36.8 % Low 37-47 [facility] Hemoglobin measurementOrdere d By: Scott Berrios on 09-24-2024 Hemoglobin (Bld) [Mass/Vol] 11.7 g/dL Low 12.0-15.0 [facility] Immature granulocytes/100 WB C Auto (Bld)Ordered By: Scott Berrios on 09-24-2024 Immature granulocytes/100 WBC (Bld) 1.100 % High 0.0-0.9 [facility] Comment on above: IG% - Immature Granu locytes (promyelocytes, myelocytes and metamyelocytes) > 1% indicates that a LEFT SHIFT is Present. Laboratory - Hematology and Cell countsOrdered By: Jaziel Drake on 09-24-2024 HbA1c (Bld) [Mass fraction] 11.4 % High 4.2-6.3 [facility] Lymphocytes Auto (Unsp spec) [#/Vol]Ordered By: Scott Berrios on 09-24-2024 Lymphocytes (Bld) [#/Vol] 2.28 10*3/uL 0.83-4.51 [facility] Lymphocytes/100 WBC Auto (Un sp spec)Ordered By: Scott Berrios on 09-24-2024 Lymphocytes/100 WBC (Bld) 20.7 % 19-41 [facility] MCV (mean corpuscular volume ) determinationOrdered By: Scott Berrios on 09-24-2024 MCV (RBC) [Entitic vol] 78.6 fL Low 81-99 [facility] Mean corpuscular hemoglobin (MCH) determinationOrdered By: Scott Berrios on 09-24-2024 MCH (RBC) [Entitic mass] 25.0 pg Low 27.0-32.0 [facility] Mean corpuscular hemoglobin concentration (MCHC) determinationOrdered By: Scott Berrios on 09-24-2024 MCHC (RBC) [Mass/Vol] 31.8 g/dL Low 32-36 [facility] Mean platelet volume determi nationOrdered By: Scott Berrios on 09-24-2024 Platelet mean volume (Bld) [Entitic vol] 10.4 fL 6.2-12.0 [facility] Monocyte percentageOrdered B y: Scott Berrios on 09-24-2024 Monocytes/100 WBC (Bld) 4.4 % 0-10 [facility] Neutrophil percentageOrdered By: Scott Berrios on 09-24-2024 Neutrophils/100 WBC (Bld) 71.2 % High 47-70 [facility] Nucleated red blood cell per centageOrdered By: Scott Berrios on 09-24-2024 Nucleated RBC/100 WBC (Bld) [Ratio] 0 % 0-5 [facility] Platelet countOrdered By: Sandrita Berrios on 09-24-2024 Platelets (Bld) [#/Vol] 261 10*3/uL 150-450 [facility] RBC Auto (Bld) [#/Vol]Ordere d By: Scott Berrios on 09-24-2024 RBC (Bld) [#/Vol] 4.68 10*6/uL 4.2-5.4 [facility] White blood cell (WBC) count Ordered By: Scott Berrios on 09-24-2024 WBC (Bld) [#/Vol] 11.0 10*3/uL 4.4-11.0 [facility] MA MAMMOGRAM SCREENING BILAT ERAL W/TOMOon 09-22-2024 MA MAMMOGRAM SCREENING BILATERAL W/JORGE ALBERTO ORIGINAL FROM: [address] [place], [place] [address] PROCEDURE FOR: [address] [place] [address] Home: PID#: [id number] Exam#: [id number] : 1965 Age: 58 TO: VERO ORTEZ APRN, CNP [facility] [address] [place], [place] [address] EXAMINATION: SCREENING DIGITAL BILATERAL MAMMOGRAM WITH TOMOSYNTHESIS, 09/15/2024 12:58 pm TECHNIQUE: Screening mammography of the bilateral breasts was performed with tomosynthesis. 2D standard and 3D tomosynthesis combination imaging performed through both breasts in the MLO and CC projection. Computer aided detection was utilized in the interpretation of this exam. COMPARISON: 11/12/2022, 10/09/2021 HISTORY: Breast cancer screening. FINDINGS: BREAST DENSITY: The breasts are heterogeneously dense, which may obscure small masses. There are benign appearing calcifications in both breasts. There are no significant masses or calcifications. IMPRESSION: No mammographic evidence of malignancy. Continued screening with annual mammograms is recommended. [facility] risk calculations, generated with the history provided, report this patient's 10 year risk and lifetime risk for developing breast cancer at 8.0% and 22.1%, respectively. Based on this assessment tool, if the patient's calculated lifetime risk is below 20%, then the patient is considered at average risk for developing breast cancer. If the patient's calculated lifetime risk is at or above 20%, then the patient is considered high risk for developing breast cancer and may be a candidate for supplemental breast MRI screening in addition to annual mammographic screening per the [employer]. BIRADS: BI-RADS: 2: Benign RECALL: 1 year screening RECALL TYPE: mammo LETTER SENT: Normal BI-RADS 1 and 2 Interpreted by: Amadou Saldana MD Preliminary Report By: Amadou Saldana MD Electronically signed By Amadou Saldana MD Dictated Date: 09/22/2024 5:03:08 PM Prelim Date: 09/22/2024 5:05:43 PM Sign Date: 09/22/2024 5:05:43 PM Ordering Provider: VERO ORTEZ Laundry Machine Operator: MARISSA MORRISON RT (R)(M) letter sent: Normal BI-RADS 1 and 2 Mammogram BI-RADS: 2 Benign Normal [facility] Granulizing Machine Operator Cytology Reporton 2024 Granulizing Machine Operator Cytology Report . Pathology Reports Accession: Collected Date/Time: Received Date/Time: Pathologist: [id number] 09/02/2024 13:46 EST 09/02/2024 18:00 EST Granulizing Machine Operator Cytology Report SPECIMEN: Specimen Description: Liquid Prep w/ HPV Specimen: Cervical Screening or Diagnostic: Screening RELEVANT HISTORY: LMP: 7 yrs ago SPECIMEN ADEQUACY: SATISFACTORY FOR EVALUATION Endocervical/Transformatio nal zone component present INTERPRETATION/RESULTS: NEGATIVE FOR INTRAEPITHELIAL LESION OR MALIGNANCY HIGH RISK HPV TESTING: Event Code Result HPV Interp See Interp HPVN HPV Interp Text: High Risk HPV Typing: NEGATIVE HPV types 16, 18, 31, 33, 35, 39, 45, 51, 52, 56, 58, 59, 66 and 68 DNA were undetectable or below the pre-set threshold. The suzie High-Risk HPV DNA Test is not intended for use as a screening device for Pap normal women under age 30 and is not intended to substitute for regular Pap screening. The suzie High-Risk HPV DNA Test is designed to augment existing methods for the detection of cervical disease and should be used in conjunction with clinical information derived from other diagnostic and screening tests, physical examinations and full medical history in accordance with appropriate patient management procedures. NOTE: A negative result does not preclude the presence of HPV infection because results depend on adequate specimen collection, absence of inhibitors and sufficient DNA to be detected. As of: 09/09/24 15:21 EST COMMENT: This Pap Test was successfully processed and evaluated with the assistance of the [employer] ThinPrep Test Imaging System. Pathology Reports Accession: Collected Date/Time: Received Date/Time: Pathologist: [id number] 09/02/2024 13:46 EST 09/02/2024 18:00 EST Verified by Pathology report verified by [facility] Screened by: [place] Electronically signed by Rosy MARS (ASCP) Sign-Out Date: 09/09/2024 15:21 Performing Lab: [facility], [address] [place] [address] Pathology Dept Disclaimer The Pap test is a screening test for cervical cancer. As evidenced by published data, it is subject to both inherent false negative and false positive results. Your patient's results should be interpreted in context with pertinent clinical history including gynecological examination. Normal [facility] HPVon 09-04-2024 HPV Interp Normal See Interp HPVN [facility] Comment on above: Order Comment: Order placed by AP_HPV_ORDER rule from [id number] Result Comment: High Risk HPV Typing: NEGATIVE HPV types 16, 18, 31, 33, 35, 39, 45, 51, 52, 56, 58, 59, 66 and 68 DNA were undetectable or below the pre-set threshold. The suzie High-Risk HPV DNA Test is not intended for use as a screening device for Pap normal women under age 30 and is not intended to substitute for regular Pap screening. The suzie High-Risk HPV DNA Test is designed to augment existing methods for the detection of cervical disease and should be used in conjunction with clinical information derived from other diagnostic and screening tests, physical examinations and full medical history in accordance with appropriate patient management procedures. NOTE: A negative result does not preclude the presence of HPV infection because results depend on adequate specimen collection, absence of inhibitors and sufficient DNA to be detected. See Interp HPVN Performed By: #### C MP, ADIFF, CBC, PBNP, GFR, ANEU #### [address] [place], [place] [address] HPV Source Cervix Normal [facility] Comment on above: Order Comment: Order placed by AP_HPV_ORDER rule from [id number] Performed By: #### C MP, ADIFF, CBC, PBNP, GFR, ANEU #### [address] [place], [place] [address] Pulmonary Visit Reporton Pulmonary Visit Report Normal [facility] CTPCRon 09-03-2024 C. trachomatis Interp Normal See CT Interp N [facility] Comment on above: Result Comment: C. t rachomatis DNA not detected. Specimen is presumptive negative for C. trachomatis. A negative result does not preclude C. trachomatis infection because results depend on adequate specimen collection, absence of inhibitors, and sufficient DNA to be detected. See CT Interp N Performed By: #### C TPCR, NGPCR1 #### [facility] [address] [place] [address] C.trachomatis PCR Negative Normal Negative [facility] Comment on above: Result Comment: Mole brienar (PCR) assay performed on the Mitali Suzie 4800 system. Performed By: #### C TPCR, NGPCR1 #### [address] [address] [place] Source Urine Normal [facility] Comment on above: Performed By: #### C TPCR, NGPCR1 #### [address] [address] GLUCOSE POCon 09-03-2024 Glucose [Mass/Vol] 336 mg/dL High 70 - 99 mg/dL [facility] Interpretation and review of laboratory results [facility] P[facility] Sample Type CAPBL [facility] Test performed at ad dress of the patient encounter. [facility] Glucose [Mass/Vol] 324 mg/dL High 70 - 99 mg/dL [facility] Interpretation and review of laboratory results Abnormal [facility]OC [facility] Test performed at ad dress of the patient encounter. [facility] Glucose [Mass/Vol] 371 mg/dL High 70 - 99 mg/dL [facility] Interpretation and review of laboratory results Abnormal [facility] POC Sample Type VENO [facility] Test performed at ad dress of the patient encounter. 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 Index EGD 03/2024 with R1 resection of a 31 mm polyp in the cardia, path showed WHO grade 2 NET. Follow up EGD/EUS 06/2024 showed a 1.5 cm gastric cardia polyp and two 1 cm gastric antral polyps, removed. One abnormal LN was seen and biopsied. LN path showed well differentiated NET. Antral polyp path showed well differentiated NET. EMR of prior EMR site showed residual NET. All resected sites with R1 on pathology Referring MD: Blas Merrill MD (Referring MD), Scott Berrios MD, MPH (Referring MD) Medicines: See the Anesthesia note for documentation of the administered medications Complications: No immediate complications. Procedure: Pre-Anesthesia Assessment: - Prior to the procedure, a History and Physical was performed, and patient medications and allergies were reviewed. The patient's tolerance of previous anesthesia was also reviewed. The risks and benefits of the procedure and the sedation options and risks were discussed with the patient. All questions were answered, and informed consent was obtained. Prior Anticoagulants: The patient has taken no anticoagulant or antiplatelet agents. ASA Grade Assessment: III - A patient with severe systemic disease. After reviewing the risks and benefits, the patient was deemed in satisfactory condition to undergo the procedure. After obtaining informed consent, the endoscope was passed under direct vision. Throughout the procedure, the patient's blood pressure, pulse, and oxygen saturations were monitored continuously. The [id number] was introduced through the mouth, and advanced to the second part of duodenum. The upper GI endoscopy was accomplished with ease. The patient tolerated the procedure well. Findings: The examined esophagus was normal. There was a large amount of bilious fluid in the stomach. Approximately 20 cc of yellow liquid were aspirated and sent for gastric pH studies. There was extensive involvement of the stomach by multiple Janie 0-IIa flat elevated lesions with central umbilication and reticular vascular pattern, suspicious for NET. These included but were not limited to: 3x lesions in the antrum at 60 cm from the incisors, 2x lesions in the greater curvature @ 58 cm, 4x lesions in the greater curvature at 56 cm, 1x lesion along the posterior wall at 56 cm, 3x lesions along the greater curvature at 40 cm, 5x lesions along the lesser curvature at 45 cm, 10x lesions along the greater curvature at 45 cm. All lesions measured between 2-8 mm. Several lesions had overlying clips, consistent with recurrence after prior EMR attempt. There was a flat elevated Janie 0-IIa lesion overlying a scar in the lesser curvature at 50 cm. The lesion measured approximately 2 cm in size, consistent with recurrent NET after prior resection attempt. Six of the larger lesions in the stomach along the greater curvature and anterior wall were removed with Preparations were made for mucosal resection. The target lesions were demarcated with white light and NBI and lifted with a solution of Hetastarch and methylene blue. Band EMR was performed using a Duette kit and 15 mm Captivator snare. The resection was complete and all lesions were retrieved. Inspection of the resection sites demonstrated no deep tissue (more content not included)... LAB, [facility] Radiology Study observation (narrative) [facility] [id number] 09-03-2024 GC PCR Source Urine Normal [facility] Comment on above: Performed By: #### C TPCR, NGPCR1 #### [place] [address] N. gonorrhoeae (PCR) Negative Normal Negative [facility] Comment on above: Result Comment: Mole cular (PCR) assay performed on the Mitali Suzie 4800 System. Performed By: #### C TPCR, NGPCR1 #### [place] [address] N. gonorrhoeae Interp Normal See NG Interp N [facility] Comment on above: Result Comment: N. g onorrhoeae DNA not detected. Specimen is presumptive negative for N. gonorrhoeae. A negative result does not preclude Neisseria gonorrhoeae infection because results depend on adequate specimen collection, absence of inhibitors, and sufficient DNA to be detected. See NG Interp N Performed By: #### C TPCR, NGPCR1 #### [place] [address] SURG PATH REQUESTon 09-03-19 Case Report Normal [facility] Comment on above: Result Comment: Surg ical Pathology Report Case: [id number] Authorizing Provider: Velasquez Berry MD Collected: 09/03/2024 01:18 PM Ordering Location: [facility] Endoscopy Received: 09/03/2024 02:37 PM Pathologist: ALINA Hart Specimens: A) - TISSUE, antral wall at 50 biopsy, prior EMR site B) - TISSUE, gastric polyps x 6, hx of neuroendocrine tumor Performed By: #### P CA #### [facility] (DEFAULT) [address] [place] [address] Clinical History Neuroendocrine tumor [D3A.8]. Medical History: Diabetes mellitus. History of cancer. GERD (gastroesophageal reflux disease). Arthritis. Anxiety. Hyperlipidemia. Renal disease. Hyperthyroidism. Cirrhosis of liver. Obstructive sleep apnea. Liver disease. Normal [facility] Comment on above: Performed By: #### P CA #### [facility] (DEFAULT) [address] [place] [address] Gross Description [facility] Comment on above: Result Comment: The specimens are received in two properly labeled containers with the patient's name and accession number. A. The specimen is designated antral wall at 50 biopsy, prior EMR site and consists of three, 0.2 to 0.5 cm conti-pink fragments of mucosal tissue. TE 1 B. The specimen is designated gastric polyps x6, history of neuroendocrine tumor and consists of six, 0.9 to 1.5 cm conti-pink, hyperemic, raised mucosal polyps along with a 1.5 x 0.7 x 0.2 cm aggregate of conti-pink mucosal tissue and clotted blood. The surgical margins of the six polyps are inked black and are sectioned and submitted entirely. TE 7 Cassettes: B1-B6, each block one polyp, trisected B7, additional aggregate of fragments Lab Use Only: JobID [id number] Grosser for this case was: Abram Hilton Performed By: #### P CA #### [facility] (DEFAULT) [address] [place] [address] Microscopic Description [facility] Comment on above: Result Comment: A mi croscopic examination was performed. All controls show appropriate reactivity. All immunohistochemistry (IHC), in situ hybridization (ANNA), and histochemical tests were developed by and are performed at the [facility] Clinical Laboratory, Histology and IHC Lab, [address] [place] [address], [place] [address]. All Immunofluorescent (IF) tests were developed by and are performed at the [facility] Clinical Laboratory, Renal Division, [address] [place] [address]. All tests reported here, except for PD-L1, have not been cleared by or approved by the [place] Food and Drug Administration (FDA). The laboratory is regulated under CLIA as qualified to perform high-complexity testing. The tests are used for clinical purposes. They should not be regarded as investigational or for research. Performed By: #### P CA #### [facility] (DEFAULT) [address] [place] [address] Pathologic Diagnosis [facility] Comment on above: Result Comment: A. S tomach antrum, biopsy: Gastric antral mucosa with chronic active gastritis Positive for intestinal metaplasia, negative for dysplasia Negative Helicobacter pylori immunostain B. Gastric polyps x6, biopsy: Well differentiated neuroendocrine tumor, WHO grade 2, multifocal, largest focus 5.5 mm; see COMMENT COMMENT: Biopsies show fragments of gastric mucosa with multifocal well differentiated neuroendocrine tumor. The largest focus measures 5.5 mm. On immunohistochemistry the tumor is positive for synaptophysin and chromogranin with Ki-67 proliferation index of 10%. Tumor focally abuts the inked deep cauterized edges of some of the fragments. The background gastric mucosa shows multifocal intestinal metaplasia (goblet cells) and neuroendocrine hyperplasia (highlighted by synaptophysin and chromogranin immunostains). There is diffuse chronic inflammation and patchy oxyntic gland atrophy. Gastrin immunostain highlight scattered positive cells. Overall the findings are suggestive of neuroendocrine tumor arising in the background of autoimmune chronic atrophic metaplastic gastritis (AMAG). Clinical correlation is recommended. House Cleaner slides were reviewed at the daily GI pathology consensus conference and those present in the meeting agreed with the above interpretation. at 1448 EST Performed By: #### P CA #### [facility] (DEFAULT) [address] [place] [address] Professional Interpretation Performed at: [facility] Comment on above: Result Comment: [facility] For Immediate Release to [facility]'s [facility] Yes [id number] Performed By: #### P CA #### [facility] (DEFAULT) [address] [place] [address] LABORATORYOrdered By: Robby Vega on 09-02-2024 Albumin DL <= 20 mg/L (U) [Mass/Vol] 114.3 mg/L Invalid Interpretation Code AO ADM SS LABORATORYOrdered By: Anali Levy on 09-02-2024 Albumin/Creatinine DL <= 20 mg/L (U) [Mass ratio] 5 mcg/mg Normal 0 - 30 mcg/mg AO Chemistry S LABORATORYOrdered By: Georgina Dyson on 09-02-2024 C. trachomatis DNA [place]+probe Ql (Unsp spec) Negative 2 (09/02/24 4:25 PM) Normal Negative [facility] Comment on above: Interpretive Data: M olecular (PCR) assay performed on the Mitali Suzie 4800 system. C. trachomatis DNA [place]+probe Ql (Unsp spec) C. trachomatis DNA not detected. Specimen is presumptive negative forC. trachomatis.A negative result does not preclude C. trachomatis infection becauseresults depend on adequate specimen collection, absence of inhibitors,and sufficient DNA to be detected. Normal See CT Interp N AH Auto Viro/Sero SS N. gonorrhoeae DNA [place]+probe Ql (Unsp spec) Negative 1 (09/02/24 4:25 PM) Normal Negative AH Auto Viro/Sero SS Comment on above: Interpretive Data: M olecular (PCR) assay performed on the Mitali Suzie 4800 System. N. gonorrhoeae DNA [place]+probe Ql (Unsp spec) N. gonorrhoeae DNA not detected. Specimen is presumptive negative forN. gonorrhoeae. A negative result does not preclude Neisseria gonorrhoeaeinfection because results depend on adequate specimen collection, absenceof inhibitors, and sufficient DNA to be detected. Normal See NG Interp N AH Auto Viro/Sero SS LABORATORYOrdered By: Rodney Brice on 09-02-2024 Creatinine (U) [Mass/Vol] 25.2 mg/dL Invalid Interpretation Code AO ADM SS LABORATORYOrdered By: Coy Russell on 09-02-2024 HPV Interp High Risk HPV Typing : NEGATIVEHPV types 16, 18, 31, 33, 35, 39, 45, 51, 52, 56, 58, 59, 66 and 68 DNA wereundetectable or below the pre-set threshold.The suzie High-Risk HPV DNA Test is not intended for use as a screening device forPap normal women under age 30 and is not intended to substitute for regular Papscreening.The suzie High-Risk HPV DNA Test is designed to augment existing methods for thedetection of cervical disease and should be used in conjunction with clinicalinformation derived from other diagnostic and screening tests, physical examinationsand full medical history in accordance with appropriate patient managementprocedures.NOTE: A negative result does not preclude the presence of HPV infection because resultsdepend on adequate specimen collection, absence of inhibitors and sufficientDNA to be detected. Normal See Interp HPVN Auto Viro/Sero SS Specimen source Nom (Unsp spec) Cervix (09/02/24 1:46 PM) Normal Auto Viro/Sero SS Laboratory - Specimen inform ationOrdered By: Georgina Dyson on 09-02-2024 Specimen source Nom (Unsp spec) Urine (09/02/24 4:25 PM) Normal Auto Viro/Sero SS MALBRon 09-02-2024 U Creatinine 25.2 mg/dL Normal [facility] Comment on above: Performed By: #### C MP, ADIFF, CBC, PBNP, GFR, ANEU #### [address] [place], [place] [address] U Microalb 114.3 mg/L Normal [facility] Comment on above: Performed By: #### C MP, ADIFF, CBC, PBNP, GFR, ANEU #### [facility] [address] [place], [place] [address] No Panel InformationOrdered By: Zion Bowman on 09-02-2024 Affirm Pathogens DNA Direct Probe Trichomonas vaginalis DNA Probe Negative Gardnerella vaginalis DNA Probe Negative Judie species DNA Probe Positive [facility] CBC AND ELECTRONIC DIFFon Basophils (Bld) [#/Vol] 0.05 10*3/uL Normal 0.00-0.15 [facility] Comment on above: Performed By: #### L [id number] #### [facility] (DEFAULT) [address] [place] [address] Basophils/100 WBC (Bld) 0.5 % Normal [facility] Comment on above: Performed By: #### L [id number] #### [facility] (DEFAULT) [address] [place] [address] DIFF STATUS Electronic Differential Normal [facility] Comment on above: Performed By: #### L [id number] #### [facility] (DEFAULT) [address] [place] [address] Eosinophils (Bld) [#/Vol] 0.19 10*3/uL Normal 0.00-0.42 [facility] Comment on above: Performed By: #### L [id number] #### [facility] (DEFAULT) [address] [address] Eosinophils/100 WBC (Bld) 1.9 % Normal [facility] Comment on above: Performed By: #### L [id number] #### [facility] (DEFAULT) [address] [address] Hematocrit (Bld) [Volume fraction] 35.1 % Normal 34.9-44.3 [facility] Comment on above: Performed By: #### L [id number] #### [facility] (DEFAULT) [address] [place] [address] Hemoglobin (Bld) [Mass/Vol] 11.2 g/dL Low 11.4-15.2 [facility] Comment on above: Performed By: #### L [id number] #### [facility] (DEFAULT) [address] [address] Immature Grans % 0.8 % Normal [facility] Comment on above: Performed By: #### L [id number] #### [facility] (DEFAULT) [address] [address] Immature Grans Absolute 0.08 K/uL Normal <=0.08 [facility] Comment on above: Performed By: #### L [id number] #### [facility] (DEFAULT) [address] [address] Lymphocytes (Bld) [#/Vol] 2.35 10*3/uL Normal 1.16-3.51 [facility] Comment on above: Performed By: #### L [id number] #### [facility] (DEFAULT) [address] [address] Lymphocytes/100 WBC (Bld) 23.3 % Normal [facility] Comment on above: Performed By: #### L [id number] #### [facility] (DEFAULT) [address] [address] MCV (RBC) [Entitic vol] 76.3 fL Low 79.6-97.7 [facility] Comment on above: Performed By: #### L [id number] #### [facility] (DEFAULT) [address] [address] Mean Cell Hgb 24.3 pg Low 25.9-33.9 [facility] Comment on above: Performed By: #### L [id number] #### [facility] (DEFAULT) [address] [address] Mean Cell Hgb Conc 31.9 g/dL Normal 31.4-35.9 [facility] Comment on above: Performed By: #### L [id number] #### [facility] (DEFAULT) [address] [address] Monocytes (Bld) [#/Vol] 0.56 10*3/uL Normal 0.22-0.87 [facility] Comment on above: Performed By: #### L [id number] #### [facility] (DEFAULT) [address] [address] Monocytes/100 WBC (Bld) 5.5 % Normal [facility] Comment on above: Performed By: #### L [id number] #### [facility] (DEFAULT) [address] [place] [address] Nucleated RBC 0.0 /100 WBC Normal <=0.2 [facility] Comment on above: Performed By: #### L [id number] #### [facility] (DEFAULT) [address] [place] [address] Platelet mean volume (Bld) [Entitic vol] 9.8 fL Normal 8.5-12.2 [facility] Comment on above: Performed By: #### L [id number] #### [facility] (DEFAULT) [address] [place] [address] Platelets (Bld) [#/Vol] 215 10*3/uL Normal 150-393 [facility] Comment on above: Performed By: #### L [id number] #### [facility] (DEFAULT) [address] [place] [address] RBC (Bld) [#/Vol] 4.60 10*6/uL Normal 3.91-5.04 [facility] Comment on above: Performed By: #### L [id number] #### [facility] (DEFAULT) [address] [place] [address] RBC Distribution 16.2 % High 10.8-14.9 [facility] Comment on above: Performed By: #### L [id number] #### [facility] (DEFAULT) [address] [place] [address] Segs + Bands Auto 68.0 % Normal [facility] Comment on above: Performed By: #### L [id number] #### [facility] (DEFAULT) [address] [place] [address] Segs + Bands,Absolute Auto 6.87 K/uL Normal 1.64-7.28 [facility] Comment on above: Performed By: #### L [id number] #### [facility] (DEFAULT) [address] [place] [address] WBC (Bld) [#/Vol] 10.10 10*3/uL Normal 3.99-11.19 [facility] Comment on above: Performed By: #### L [id number] #### [facility] (DEFAULT) [address] [place] [address] FERRITINon 08-27-2024 Ferritin [Mass/Vol] 38.2 ng/mL Normal 7.3-270.7 [facility] Comment on above: Performed By: #### F ERIB #### [facility] (DEFAULT) [address] [place] [address] IRON/IRON BINDING/TRANSFERRI Non 08-27-2024 Iron [Mass/Vol] 32 ug/dL Low 40-174 [facility] Comment on above: Performed By: #### C MPN, LDO #### [facility] (DEFAULT) [address] [place] [address] Iron Saturation 10 % Low 20-55 [facility] Comment on above: Performed By: #### C MPN, LDO #### [facility] (DEFAULT) [address] [place] [address] Total Iron Binding Capacity 311 mcg/dL Normal 250-425 [facility] Comment on above: Performed By: #### C MPN, LDO #### [facility] (DEFAULT) [address] [place] [address] Transferrin [Mass/Vol] 249 mg/dL Normal 200-400 [facility] Comment on above: Performed By: #### C MPN, LDO #### [facility] (DEFAULT) [address] [place] [address] Laboratory - Chemistry and C hemistry - challengeon 08-27-2024 Iron [Mass/Vol] 32 ug/dL Low [facility] Iron binding capacity [Mass/Vol] 311 [facility] Iron saturation [Mass fraction] 10 % Low 20 - 55 % [facility] Transferrin [Mass/Vol] 249 mg/dL 200 - 400 mg/dL [facility] Ferritin [Mass/Vol] 38.2 ng/mL 7.3 - 27 0.7 ng/mL [facility] No Panel Informationon 08-27 Interpretation and review of laboratory results Abnormal [facility] Interpretation and review of laboratory results Normal [facility] CT ABDOMEN/PELVIS WITH AND W ITHOUT CONTRASTon 08-17-2024 CT ABDOMEN/PELVIS WITH AND WITHOUT CONTRAST EXAM: CT ABDOMEN/PELVIS WITH AND WITHOUT CONTRAST COMPARISON: 9 PET/CT 07/30/[address] abdomen/pelvis 04/03/2024 CLINICAL INDICATIONS: Neuroendocrine tumor; Metastatic neuroendocrine cancer TECHNIQUE: CT scanning was performed through the abdomen and pelvis prior to and following the administration of intravenous contrast. PROTOCOL: Multiphase abdomen with FINDINGS: LOWER THORAX: This mild linear atelectasis/scarring lung bases. LIVER: Hepatomegaly. The liver measures 25 cm cranial-caudal similar to prior studies. BILIARY: Cholecystectomy. PANCREAS: Unremarkable SPLEEN: Calcified granulomas. Moderate splenomegaly. The spleen measures 18 cm craniocaudal, similar to prior exam. ADRENAL GLANDS: Unremarkable KIDNEYS/URETERS: Kidneys enhance promptly and symmetrically. 3 mm nonobstructing stone upper pole left kidney. 3 mm stone in the proximal left ureter similar to prior PET CT without significant hydronephrosis. The stone was not in the ureter but rather the lower pole left kidney on prior abdomen and pelvis CT 04/03/2024. PELVIC ORGANS/BLADDER: IUD within uterus. 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 Stable calcification along or arising from the right uterine body. Ovaries are unremarkable. Underdistended, thick-walled bladder. This can be correlated with urinalysis. GI TRACT: Surgical clips in the stomach appearing since March study but also present on recent PET/CT. No bowel obstruction. Normal appendix. Mild amount of stool in the colon. PERITONEUM: No free air or fluid LYMPH NODES: Mildly enlarged gastrohepatic lymph node measuring 1.8 x 1.2 cm, similar to prior studies. Stable borderline prominent portacaval lymph node. Stable subcentimeter periaortic lymph nodes. VESSELS: No evidence of abdominal aortic aneurysm. BONES AND SOFT TISSUES: Degenerative changes spine. No suspicious osseous lesion. IMPRESSION: 1. 3 mm stone in the proximal left ureter without significant hydronephrosis. This is similar to PET CT however is moved into the ureter since the March 2024 exam. 2. Hepatosplenomegaly. 3. Mildly enlarged gastrohepatic lymph node. [place] M.D. This report has been electronically signed and verified by the Radiologist whose name is printed above. This report contains privileged and confidential information and is intended solely for the use of the individual or entity to which it is addressed. If you are not the intended recipient of this report, you are hereby notified that any copying, distribution, dissemination or action taken in relation to the contents of this report is strictly prohibited and may be unlawful. If you have received this report in error, please notify the sender immediately at [phone] and permanently delete the original report and destroy any copies or printouts. Normal [facility] ANTI PARIETAL ANTIBODYon Parietal Cell Antibody Positive Abnormal Negative [facility] Comment on above: Performed By: #### P CA #### [facility] (DEFAULT) [address] [address] Quantitative Parietal Cell Ab 1:160 Abnormal (none) [facility] Comment on above: Performed By: #### P CA #### [facility] (DEFAULT) [address] [address] CALCITONINon 08-14-2024 Calcitonin <5.00 Normal <=9.53 [facility] Comment on above: Result Comment: This test was performed on the Buz IM Immunoassay platform by [employer] which is a two-site sandwich chemiluminescent immunoassay. It is important to note that assays using different manufacturers and/or methods may not be comparable. Performed By: #### P CA #### [facility] (DEFAULT) [address] [place] [address] CBC AND ELECTRONIC DIFFon Abs Baso Auto < Normal 0.00-0.15 [facility] Comment on above: Performed By: #### C MPN, LDO #### [facility] (DEFAULT) [address] [place] [address] Basophils/100 WBC (Bld) 0.4 % Normal [facility] Comment on above: Performed By: #### C MPN, LDO #### [facility] (DEFAULT) [address] [place] [address] DIFF STATUS Electronic Differential Normal [facility] Comment on above: Performed By: #### C MPN, LDO #### [facility] (DEFAULT) [address] [place] [address] Eosinophils (Bld) [#/Vol] 0.17 10*3/uL Normal 0.00-0.42 [facility] Comment on above: Performed By: #### C MPN, LDO #### [facility] (DEFAULT) [address] [place] [address] Eosinophils/100 WBC (Bld) 2.2 % Normal [facility] Comment on above: Performed By: #### C MPN, LDO #### [facility] (DEFAULT) [address] [place] [address] Hematocrit (Bld) [Volume fraction] 35.8 % Normal 34.9-44.3 [facility] Comment on above: Performed By: #### C MPN, LDO #### [facility] (DEFAULT) [address] [place] [address] Hemoglobin (Bld) [Mass/Vol] 10.5 g/dL Low 11.4-15.2 [facility] Comment on above: Performed By: #### C MPN, LDO #### [facility] (DEFAULT) [address] [place] [address] Immature Grans % 0.9 % Normal [facility] Comment on above: Performed By: #### C MPN, LDO #### [facility] (DEFAULT) [address] [place] [address] Immature Grans Absolute 0.07 K/uL Normal <=0.08 [facility] Comment on above: Performed By: #### C MPN, LDO #### [facility] (DEFAULT) [address] [place] [address] Lymphocytes (Bld) [#/Vol] 2.51 10*3/uL Normal 1.16-3.51 [facility] Comment on above: Performed By: #### C MPN, LDO #### [facility] (DEFAULT) [address] [place] [address] Lymphocytes/100 WBC (Bld) 33.2 % Normal [facility] Comment on above: Performed By: #### C MPN, LDO #### [facility] (DEFAULT) [address] [place] [address] MCV (RBC) [Entitic vol] 79.4 fL Low 79.6-97.7 [facility] Comment on above: Performed By: #### C MPN, LDO #### [facility] (DEFAULT) [address] [address] Mean Cell Hgb 23.3 pg Low 25.9-33.9 [facility] Comment on above: Performed By: #### C MPN, LDO #### [facility] (DEFAULT) [address] [address] Mean Cell Hgb Conc 29.3 g/dL Low 31.4-35.9 [facility] Comment on above: Performed By: #### C MPN, LDO #### [facility] (DEFAULT) [address] [place] [address] Monocytes (Bld) [#/Vol] 0.43 10*3/uL Normal 0.22-0.87 [facility] Comment on above: Performed By: #### C MPN, LDO #### [facility] (DEFAULT) [address] [address] Monocytes/100 WBC (Bld) 5.7 % Normal [facility] Comment on above: Performed By: #### C MPN, LDO #### [facility] (DEFAULT) [address] [place] [address] Nucleated RBC 0.0 /100 WBC Normal <=0.2 [facility] Comment on above: Performed By: #### C MPN, LDO #### [facility] (DEFAULT) [address] [place] [address] Platelet mean volume (Bld) [Entitic vol] 10.6 fL Normal 8.5-12.2 [facility] Comment on above: Performed By: #### C MPN, LDO #### [facility] (DEFAULT) [address] [place] [address] Platelets (Bld) [#/Vol] 223 10*3/uL Normal 150-393 [facility] Comment on above: Performed By: #### C MPN, LDO #### [facility] (DEFAULT) [address] [place] [address] RBC (Bld) [#/Vol] 4.51 10*6/uL Normal 3.91-5.04 [facility] Comment on above: Performed By: #### C MPN, LDO #### [facility] (DEFAULT) [address] [place] [address] RBC Distribution 16.1 % High 10.8-14.9 [facility] Comment on above: Performed By: #### C MPN, LDO #### [facility] (DEFAULT) [address] [place] [address] Segs + Bands Auto 57.6 % Normal [facility] Comment on above: Performed By: #### C MPN, LDO #### [facility] (DEFAULT) [address] [place] [address] Segs + Bands,Absolute Auto 4.36 K/uL Normal 1.64-7.28 [facility] Comment on above: Performed By: #### C MPN, LDO #### [facility] (DEFAULT) [address] [place] [address] WBC (Bld) [#/Vol] 7.57 10*3/uL Normal 3.99-11.19 [facility] Comment on above: Performed By: #### C MPN, LDO #### [facility] (DEFAULT) [address] [address] CHROMOGRANIN Aon 08-14-2024 Chromogranin A 1084 ng/mL High <93 [facility] Comment on above: Result Comment: Impa ired renal or hepatic function or treatment with proton pump inhibitors may result in artifactual elevations of Chromogranin A. ADDITIONAL INFORMATION The testing method is a homogeneous time-resolved immunofluorescent assay manufactured by [employer] and performed on the new test company [employer]. Values obtained with different assay methods or kits may be different and cannot be used interchangeably. Test results cannot be interpreted as absolute evidence for the presence or absence of malignant disease. In some immunoassays, the presence of unusually high concentrations of analyte may result in a high-dose hook effect. This may result in a lower or even normal measured analyte concentration. If the reported result is inconsistent with the clinical presentation, the laboratory should be alerted for troubleshooting. For diagnostic purposes, these immunoassay results should always be assessed in conjunction with the patients medical history, clinical examination and other findings. Test Performed by: [facility] [address] [place] [address] Allergy Specialist: Juana Recio Ph.D.; CLIA# [id number] Performed By: #### C MPN, LDO #### [facility] (DEFAULT) [address] [address] COMPREHENSIVE METABOLIC PANE [place] 08-14-2024 Albumin [Mass/Vol] 3.5 g/dL Normal 3.5-5.0 [facility] Comment on above: Performed By: #### C MPN, LDO #### [facility] (DEFAULT) [address] [address] ALP [Catalytic activity/Vol] 114 U/L Normal 32-126 [facility] Comment on above: Performed By: #### C MPN, LDO #### [facility] (DEFAULT) [address] [address] ALT [Catalytic activity/Vol] 38 U/L Normal 9-48 [facility] Comment on above: Performed By: #### C MPN, LDO #### [facility] (DEFAULT) [address] [place] [address] Anion gap [Moles/Vol] 11 mmol/L Normal 7-17 [facility] Comment on above: Performed By: #### C MPN, LDO #### [facility] (DEFAULT) [address] [place] [address]46 AST [Catalytic activity/Vol] 54 U/L High 10-39 [facility] Comment on above: Performed By: #### C MPN, LDO #### [facility] (DEFAULT) [address] [place] [address] Bilirubin [Mass/Vol] 0.5 mg/dL Normal <1.5 [facility] Comment on above: Performed By: #### C MPN, LDO #### [facility] (DEFAULT) [address] [place] [address] Calcium [Mass/Vol] 9.2 mg/dL Normal 8.6-10.5 [facility] Comment on above: Performed By: #### C MPN, LDO #### [facility] (DEFAULT) [address] [place] [address] Chloride [Moles/Vol] 95 mmol/L Low 98-108 [facility] Comment on above: Performed By: #### C MPN, LDO #### [facility] (DEFAULT) [address] [place] [address] 23744 CO2 [Moles/Vol] 31 mmol/L Normal 21-31 [facility] Comment on above: Performed By: #### C MPN, LDO #### [facility] (DEFAULT) [address] [place] [address] Creatinine [Mass/Vol] 0.59 mg/dL Normal 0.50-1.20 [facility] Comment on above: Performed By: #### C MPN, LDO #### [facility] (DEFAULT) [address] [place] [address] 28874 eGFR, CKD-EPI, Female > Normal >=60 [facility] Comment on above: Result Comment: Repo rted eGFR is based on the CKD-EPI 2020 equation using creatinine, age, and sex. Performed By: #### C MPN, LDO #### [facility] (DEFAULT) [address] [place] [address]135 Glucose [Mass/Vol] 210 mg/dL High 70-99 [facility] Comment on above: Performed By: #### C MPN, LDO #### [facility] (DEFAULT) [address] [place] [address] Osmolality [Osmolality] 287 mosm/kg Normal 278-305 [facility] Comment on above: Performed By: #### C MPN, LDO #### [facility] (DEFAULT) [address] [place] [address] Potassium [Moles/Vol] 4.2 mmol/L Normal 3.5-5.0 [facility] Comment on above: Performed By: #### C MPN, LDO #### [facility] (DEFAULT) [address] [place] [address] 20963 Protein [Mass/Vol] 8.1 g/dL Normal 6.4-8.3 [facility] Comment on above: Performed By: #### C MPN, LDO #### [facility] (DEFAULT) [address] [place] [address]70 Sodium [Moles/Vol] 133 mmol/L Low 135-145 [facility] Comment on above: Performed By: #### C MPN, LDO #### [facility] (DEFAULT) [address] [place] [address] 09698 Urea nitrogen [Mass/Vol] 12 mg/dL Normal 7-25 [facility] Comment on above: Performed By: #### C MPN, LDO #### [facility] (DEFAULT) [address] [address] Urea nitrogen/Creatinine [Mass ratio] 20 mg/mg Normal [facility] Comment on above: Performed By: #### C NAHED, LDO #### [facility] (DEFAULT) [address] [address] GASTRIN - NON-STIMULATEDon 0 08-14-2024 Gastrin 537 pg/mL High [facility] Comment on above: Result Comment: REFERENCE VALUE <100 Reference ranges valid for >= 8 hour fast. Test Performed by: [place] [address] Allergy Specialist: Juana Recio Ph.D.; CLIA# [id number] Performed By: #### C NAHED, LDO #### [facility] (DEFAULT) [address] [address] INTRINSIC FACTOR ANTIBODYon 08-14-2024 INTRINSIC FACTOR BLOCK AB COMMNT SEE COMMENTS Normal [facility] Comment on above: Result Comment: Intr insic Factor Blocking Antibody (IFBA) antibodies are absent in approximately 50% of individuals with pernicious anemia (PA). The absence of elevated IFBA antibodies does not rule out the presence of PA; further studies such as gastrin testing may be indicated. Test Performed by: [place] [address] Allergy Specialist: Juana Recio Ph.D.; CLIA# [id number] Performed By: #### C MPN, LDO #### [facility] (DEFAULT) [address] [address] Intrinsic Factor Blocking Antibody Negative Normal Negative [facility] Comment on above: Performed By: #### C MPN, LDO #### [facility] (DEFAULT) [address] [address] LACTATE DEHYDROGENASEon 07-23 LD Total 167 U/L Normal 100-190 [facility] Comment on above: Performed By: #### C NAHED, JOANO #### [facility] ([facility] [address] [address] METHYLMALONIC ACIDon 025 METHYLMALONIC ACID 0.34 nmol/mL Normal <=0.40 [facility] Comment on above: Result Comment: ADDITIONAL INFORMATION This test was developed and its performance characteristics determined by [facility] in a manner consistent with CLIA requirements. This test has not been cleared or approved by the U.S. Food and Drug Administration. Test Performed by: [facility] [place] [place] [address] Allergy Specialist: Juana Recio Ph.D.; CLIA# [id number] Performed By: #### Y MMA #### [facility] (DEFAULT) [address] [address] PANCREATIC POLYPEPTIDEon Pancreatic Polypeptide 538 pg/mL High <291 [facility] Comment on above: Result Comment: ADDITIONAL INFORMATION This test was developed and its performance characteristics determined by [facility] in a manner consistent with CLIA requirements. This test has not been cleared or approved by the U.S. Food and Drug Administration. Test Performed by: [facility] [address] [place] [address] Allergy Specialist: Juana Recio Ph.D.; CLIA# [id number] Performed By: #### P CA #### [facility] (DEFAULT) [address] [address] PTH INTACTon 08-14-2024 Intact PTH 19.6 pg/mL Normal 14.0-72.0 [facility] Comment on above: Performed By: #### Char DOCKERY, JOANO #### [facility] (DEFAULT) [address] [place] [address] VITAMIN B12on 08-14-2024 Cobalamin (Vitamin B12) [Mass/Vol] 296 pg/mL Normal 211-911 [facility] Comment on above: Result Comment: Test ing of Methylmalonic Acid and Intrinsic Factor Blocking Antibody are recommended if clinical suspicion for pernicious anemia due to B12 deficiency is high for patients with intermediate B12 levels (211 to 400 pg/mL) to rule out spurious heterophile antibodies. Performed By: #### C MPN, LDO #### [facility] (DEFAULT) [address] [place] [address] NUC PET HEAD TO THIGHon NUC PET HEAD TO THIGH EXAM: NUC PET HEAD TO THIGH, 07/30/2024 09:11 AM CLINICAL INDICATIONS: neuroendocrine eval; galium, COMPARISON: No prior studies available for comparison. CT DOSE: DLP: 1188 mGy x cm kVp: 120 TECHNIQUE: Approximately 51 minutes following the intravenous injection of Ga-68 Dotatate 5.3 mCi, the patient was positioned on the Siemens Biograph mCT TOF< PET/CT-64, Javy imaging unit. A low resolution non-contrast CT was obtained from the top of the head through the mid-femurs for use in attenuation correction and anatomic correlation. PET emission scans of this anatomic region were acquired shortly thereafter. Axial, sagittal, coronal and maximal intensity projection reconstruction images were presented for interpretation. FINDINGS: Head/Neck: Physiologic activity seen within the pituitary gland, salivary glands, and thyroid. Chest: Unremarkable Abdomen/Pelvis: Intense physiologic uptake seen within the spleen and adrenal glands which can obscure potential disease in these structures. Milder physiologic uptake seen within the liver. IUD in place. There is a intensely avid gastrohepatic node approximately 1.3 cm in diameter SUV max 49.6. Musculoskeletal: Unremarkable IMPRESSION: Intensely avid gastrohepatic node, suspicious for metastatic node. No evidence of other tracer avid lesions. Normal [facility] PT Skull base to mid-thighon 07-30-2024 IMPRESSION: Intensely avid gastrohepatic node, suspicious for metastatic node. No evidence of other tracer avid lesions. OLOGY EXAM: NUC PET HEAD T O THIGH, 07/30/2024 09:11 AM CLINICAL INDICATIONS: neuroendocrine eval; galium, COMPARISON: No prior studies available for comparison. CT DOSE: DLP: 1188 mGy x cm kVp: 120 TECHNIQUE: Approximately 51 minutes following the intravenous injection of Ga-68 Dotatate 5.3 mCi, the patient was positioned on the Siemens Biograph mCT TOF< PET/CT-64, Javy imaging unit. A low resolution non-contrast CT was obtained from the top of the head through the mid-femurs for use in attenuation correction and anatomic correlation. PET emission scans of this anatomic region were acquired shortly thereafter. Axial, sagittal, coronal and maximal intensity projection reconstruction images were presented for interpretation. FINDINGS: Head/Neck: Physiologic activity seen within the pituitary gland, salivary glands, and thyroid. Chest: Unremarkable Abdomen/Pelvis: Intense physiologic uptake seen within the spleen and adrenal glands which can obscure potential disease in these structures. Milder physiologic uptake seen within the liver. IUD in place. There is a intensely avid gastrohepatic node approximately 1.3 cm in diameter SUV max 49.6. Musculoskeletal: Unremarkable RADIOLOGY Mack Bailey MD - 07/30/2024 EXAM: NUC PET HEAD TO THIGH, 07/30/2024 09:11 AM CLINICAL INDICATIONS: neuroendocrine eval; galium, COMPARISON: No prior studies available for comparison. CT DOSE: DLP: 1188 mGy x cm kVp: 120 TECHNIQUE: Approximately 51 minutes following the intravenous injection of Ga-68 Dotatate 5.3 mCi, the patient was positioned on the Siemens Biograph mCT TOF< PET/CT-64, Javy imaging unit. A low resolution non-contrast CT was obtained from the top of the head through the mid-femurs for use in attenuation correction and anatomic correlation. PET emission scans of this anatomic region were acquired shortly thereafter. Axial, sagittal, coronal and maximal intensity projection reconstruction images were presented for interpretation. FINDINGS: Head/Neck: Physiologic activity seen within the pituitary gland, salivary glands, and thyroid. Chest: Unremarkable Abdomen/Pelvis: Intense physiologic uptake seen within the spleen and adrenal glands which can obscure potential disease in these structures. Milder physiologic uptake seen within the liver. IUD in place. There is a intensely avid gastrohepatic node approximately 1.3 cm in diameter SUV max 49.6. Musculoskeletal: Unremarkable IMPRESSION IMPRESSION: Intensely avid gastrohepatic node, suspicious for metastatic node. No evidence of other tracer avid lesions. [facility] Radiology Study observation (narrative) [facility] PT Skull base to mid-thighOr dered By: Mack Bailey on 07-30-2024 [facility] Work Phone: Bedside Glucoseon 07-29-2024 FINGERSTICK GLU 367 mg/dL High 74-106 [facility] Comment on above: Result Comment: ESPERANZA GEMENT OF PATIENT CARE PER NURSING PROTOCOL Performed By: #### L 501.080 ####[facility] [address] [place], [address] FINGERSTICK GLU 370 mg/dL High 74-106 [facility] Comment on above: Result Comment: ESPERANZA GEMENT OF PATIENT CARE PER NURSING PROTOCOL Performed By: #### L 501.080 ####[facility] [address] [place], [address] Colonoscopy Reporton 025 Colonoscopy Report Normal [facility] deOrdered By: Brayan Cast on 07-29-2024 Bedside Glucose (Misc Panel) 367 mg/dL High 74-106 [facility] Comment on above: MANAGEMENT OF PATIEN T CARE PER NURSING PROTOCOL MR/POSTOP.ANEon 07-29-2024 MR/POSTOP.ANE Normal [facility] MR/VEASPKNH3op 07-29-2024 MR/POSTOPAN2 Normal [facility] Surgery Specimen Level Aicha 07-29-2024 Surgery Specimen Level IV Normal [facility] Comment on above: Performed By: #### P SUIV ####[facility] [address] [place], [address] Gastroenterology Visit Repor ton 07-28-2024 Gastroenterology Visit Report Normal [facility] MR/PAT.ANEon 07-28-2024 MR/PAT.ANE Normal [facility] ABD Limited w/ Elastographyo n 07-24-2024 ABD Limited w/ Elastography Normal [facility] GLUCOSE POCon 06-23-2024 Glucose [Mass/Vol] 281 mg/dL High 70 - 99 mg/dL [facility] Interpretation and review of laboratory results Abnormal [facility] POC Sample Type V[facility] Test performed at ad dress of the patient encounter. [facility] Miscellaneous Lab Procedureo n 06-23-2024 MISC LAB TEST Normal [facility] Comment on above: Order Comment: SER/R [id number] RDL SER/RF Result Comment: TEST RESULTS LIMITSAutoimmune Liver Profile (RDL) Anti-Nuclear Ab by IFA (RDL), Negative Negative ANCA by IFA (RDL) Positive Abnormal Negative C-ANCA (IFA-ETOH) 1:20 <1:10 P-ANCA (IFA-ETOH) <1:10 <1:10 P-ANCA (IFA-Formalin) Negative Negative Anti-Chromatin Ab, IgG (RDL) <20 Units <20 Anti-Liver/Kidney Ab (RDL), <20 Units <20 Negative: <20 Equivocal: 20 -25 Positive: >25 Anti-Mitochondrial M2 Ab (RDL) <20 Units <20 Negative: <20 Equivocal: 20 -25 Positive: >25 Anti-Soluble Liver Ag Ab (RDL) <20 Units <20 Negative: <20 Equivocal: 20 -25 Positive: >25 Anti-Smooth Muscle Ab by IFA 1:20 High <1:20 Anti-Mitochondrial Ab by IFA, <1:20 <1:20 Interpretation for Anti-Chromatin: Negative: <20 Weak Positive: 20 - 39 Moderate Positive: 40 - 80 Strong Positive: >80 TESTING PERFORMED AT [facility]. ORIGINAL REPORT ON FILE IN LAB CONTAINS ADDITIONAL TEST SITE INFORMATION. Performed By: #### L 501.2450, L801.1541, L3300.1800, L300.3900, L3410.2350, L501.6710, L801.1543, L500.4050, L3100.5440, L500.4100, L100.0100 ####[facility] [address] [place], [address] SURG PATH REQUESTon 06-23-20 24 Addendum Normal [facility] Comment on above: Result Comment: This addendum is issued to report on the chromogranin and synaptophysin stains performed on block D1. Neuroendocrine markers chromogranin and synaptophysin show focal linear neuroendocrine cell hyperplasia. All controls show appropriate reactivity. All immunohistochemistry, in situ hybridization, and histochemical tests were developed by and are performed at the [facility], [address] [place] [address]. All tests reported here, except those addressing HER2 overexpression as a predictive marker, have not been cleared by or approved by the US Food and Drug Administration (FDA). The laboratory is regulated under CLIA as qualified to perform high-complexity testing. The tests are used for clinical purposes. They should not be regarded as investigational or for research. Addendum electronically signed by Mohit Almanzar MD on 07/20/2024 at 1:00 PM Performed By: #### S URGP #### [facility] (DEFAULT) [address] [place] [address] Case Report Normal [facility] Comment on above: Result Comment: Surg ical Pathology Report Case: [id number] Authorizing Provider: Blas Merrill MD Collected: 06/23/2024 01:48 PM Ordering Location: [facility] Endoscopy Received: 06/23/2024 04:41 PM Pathologist: Mohit Almanzar MD Specimens: A) - TISSUE BIOPSY, FNA Peripancreatic LN B) - TISSUE, previous EMR site midbody C) - STOMACH, distal stomach polyps x2 D) - STOMACH, gastric cardia polyp Performed By: #### S URGP #### [facility] (DEFAULT) [address] [place] [address] Clinical History Neuroendocrine tumor D3A.8. Medical History: Diabetes mellitus. History of cancer. Gastroesophageal reflux disease. Renal disease. Hyperthyroidism. Cirrhosis of liver. Arthritis. Anxiety. Hyperlipidemia. Obstructive sleep apnea. Liver disease. Normal [facility] Comment on above: Performed By: #### S URGP #### [facility] (DEFAULT) [address] [place] [address] Gross Description Normal [facility] Comment on above: Result Comment: The specimens are received in four properly labeled containers with the patient's name and accession number. A. The specimen is designated FNA peripancreatic LN and consists of two cores of pale conti soft tissue which each measure 0.3 cm in length with a diameter of less than 0.1 cm. The specimen also consists of a 1.1 x 1.1 x 0.2 cm aggregate of dark red clotted blood and possible irregularly-shaped, small, pale conti soft tissue fragments. TE 2 Cassettes: A1, soft tissue cores; A2, soft tissue aggregate B. The specimen is designated previous EMR site mid body and consists of 25 fragments of conti-pink soft tissue, from 0.2 up to 1.0 cm in greatest dimensions. Largest two fragments range from 0.9 x 0.8 x 0.3 cm in greatest dimensions and 1.0 x 0.7 x 0.4 cm in greatest dimensions. These largest two fragments have grossly identifiable possible deep and peripheral mucosal margins which are inked green and blue, respectively. These fragments are trisected and cut sections reveal conti-red, smooth soft tissue. TE 6 Cassettes: B1-B2, sections of larger tissue fragments; B3-B6, smaller tissue fragments C. The specimen is designated distal stomach polyps x2 and consists of five fragments of conti-pink soft tissue, from 0.3 up to 0.8 cm in greatest dimension. Two fragments have possible deep and peripheral margins. These fragments measure 0.7 x 0.6 x 0.5 cm in greatest dimensions and 0.8 x 0.7 x 0.6 cm in greatest dimensions. Possible deep margins are inked green and peripheral margins are inked blue. These larger fragments are trisected and cut sections reveal pale conti-pink, smooth soft tissue. The specimen also consists of a dark red-brown aggregate of clotted blood which measures 0.9 x 0.5 x 0.3 cm in greatest dimensions. TE 2 Cassettes: C1, sections of larger tissue fragments; C2, smaller tissue fragments and clotted blood D. The specimen is designated gastric cardia polyp and consists of one soft conti portion of tissue which is 1.1 x 1.0 x 0.7 cm in greatest dimension. Presumed margin of resection is inked black and the specimen is bisected to reveal conti-red soft, smooth tissue. TE 1 Lab Use Only: JobID [id number] Grosser for this case was: Justice Trejo Performed By: #### S URGP #### [facility] (DEFAULT) [address] [place] [address] Microscopic Description Normal [facility] Comment on above: Result Comment: A mi croscopic examination was performed. All controls show appropriate reactivity. All immunohistochemistry (IHC), in situ hybridization (ANNA), and histochemical tests were developed by and are performed at the [facility], Histology and IHC Lab, [address] [place] [address]. All Immunofluorescent (IF) tests were developed by and are performed at the [facility], Renal Division, [address] [place] [address]. All tests reported here, except for PD-L1, have not been cleared by or approved by the US Food and Drug Administration (FDA). The laboratory is regulated under CLIA as qualified to perform high-complexity testing. The tests are used for clinical purposes. They should not be regarded as investigational or for research. Performed By: #### S URGP #### [facility] (DEFAULT) [address] [place] [address] Pathologic Diagnosis Normal [facility] Comment on above: Result Comment: A. L ymph node, peripancreatic, fine needle biopsy: Metastatic neuroendocrine tumor, well differentiated. Tumor is positive for neuroendocrine markers chromogranin and synaptophysin Proliferation index as measured with Ki 67 is 8% B. 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 Tumor is positive for neuroendocrine markers chromogranin and synaptophysin Proliferation index as measured with Ki 67 is 5% C. Stomach, distal, polyps x2, biopsy: Well differentiated neuroendocrine tumors, 5 and 6 mm WHO grade 2 Both appear to extend to the base of the biopsy. Tumors are positive for neuroendocrine markers chromogranin and synaptophysin Proliferation index as measured with Ki 67 is approximately 4% D. Stomach, cardia, polyp, biopsy: Cardiac type hyperplastic polyp with intestinal metaplasia. No evidence of epithelial dysplasia. No evidence of neuroendocrine tumor. Neuroendocrine markers highlight only focal linear neuroendocrine cell hyperplasia. Ki 67 is unremarkable. Performed By: #### S URGP #### [facility] (DEFAULT) [address] [place] [address] Professional Interpretation Performed at: [facility] Comment on above: Result Comment: [facility] For Immediate Release to Patient's [facility] Yes [address] [place] [address] Performed By: #### S URGP #### [facility] (DEFAULT) [address] [place] [address] UPPER EUSon 06-23-2024 [facility] [place] [facility] Patient Name: Leroy Tyler Procedure Date: 06/23/2024 12:48 PM Date of : 1965 Admit Type: Outpatient Age: 58 Room: EUS Proc Room 02 Gender: Female Note Status: Finalized Attending MD: Blas Merrill MD, [id number] Procedure: Upper EUS Indications: Gastric mucosal mass/polyp found on endoscopy Providers: Blas Merrill MD (Doctor), Bia Aggarwal, ALFONZO (Nurse), Irvin Acosta RN (Nurse), MEL Iniguez (Anesthesia Staff), Danilo Geiger DO (Anesthesia Staff) Referring MD: Karolina Piedra, GOLD BLOWER-DRILL HAND, DNP (Referring MD) Medicines: Monitored Anesthesia Care Complications: No immediate complications. Procedure: Pre-Anesthesia Assessment: - Prior to the procedure, a History and Physical was performed, and patient medications and allergies were reviewed. The patient is competent. The risks and benefits of the procedure and the sedation options and risks were discussed with the patient. All questions were answered and informed consent was obtained. Patient identification and proposed procedure were verified by the physician, the nurse, the security dispatcher and the radiography technician in the procedure room. Mental Status Examination: normal. Airway Examination: Mallampati Class II (the uvula but not tonsillar pillars visualized). Respiratory Examination: clear to auscultation. CV Examination: normal. Prophylactic Antibiotics: The patient does not require prophylactic antibiotics. Prior Anticoagulants: The patient has taken no anticoagulant or antiplatelet agents. ASA Grade Assessment: III - A patient with severe systemic disease. After reviewing the risks and benefits, the patient was deemed in satisfactory condition to undergo the procedure. The anesthesia plan was to use monitored anesthesia care (MAC). Immediately prior to administration of medications, the patient was re-assessed for adequacy to receive sedatives. The heart rate, respiratory rate, oxygen saturations, blood pressure, adequacy of pulmonary ventilation, and response to care were monitored throughout the procedure. The physical status of the patient was re-assessed after the procedure. After obtaining informed consent, the endoscope was passed under direct vision. Throughout the procedure, the patient's blood pressure, pulse, and oxygen saturations were monitored continuously. The GF-UCT 180 [id number] was introduced through the mouth, and advanced to the second part of duodenum. The Endoscope was introduced through the mouth, and advanced to the second part of duodenum. The patient tolerated the procedure well. The upper EUS was technically difficult and complex. This procedure was unusual compared to a typical procedure, requiring substantially greater intensity of mental effort, physical effort and technical skill. The procedure duration was 20 minutes longer than usual. Findings: ENDOSCOPIC FINDING: : The examined esophagus was normal. A single 15 mm semi-pedunculated polyp with no bleeding and no stigmata of recent bleeding was found in the cardia. Preparations were made for mucosal resection. Demarcation of the lesion was performed with high-definition white light and narrow band imaging to clearly identify the boundaries of the lesion. Hextend with methylene blue was injected to raise the lesion. Snare mucosal resection was performed. Resection and retrieval were complete. Resected tissue margins were examined and clear of polyp tissue. To prevent bleeding after mucosal resection, one hemostatic clip (Mantis) was successfully placed (MR conditional). Clip labor representative: [employer]. There was no bleeding at the end of the procedure. (more content not included)... LAB, [facility] Radiology Study observation (narrative) [facility] Gastric Emptying Studyon Gastric Emptying Study Normal [facility] Endocrinology Visit Reporton 06-08-2024 Endocrinology Visit Report Normal [facility] Fecal Fat, Qualitativeon FATS, NEUTRAL Normal Normal . [facility] Comment on above: Order Comment: Test( s) 218572-Ifvp, Neutral; 817793-Koeh, Totalwas developed and its performance characteristicsdetermined by [facility]. It has not been cleared or approvedby the Food and Drug Administration. Result Comment: Norm al (<60 Droplets/HPF) Performed By: #### L 7000.0750, L7000.0300 ####[facility] [address] [place] [id number] FATS, TOTAL Normal Normal . [facility] Comment on above: Order Comment: Test( s) 720375-Bhdk, Neutral; 000033-Onnh, Totalwas developed and its performance characteristicsdetermined by [employer]. It has not been cleared or approvedby the Food and Drug Administration. Result Comment: Norm al (<100 Droplets/HPF)Performed at: [address] [id number] Director: Awais Macias PhD, Phone: [phone] Performed By: #### L 7000.0750, L7000.0300 ####[facility] [address] [place], [address] L7000.0750on 06-04-2024 P ELASTASE,FECA > 800 Normal >200 [facility] Comment on above: Result Comment: Resu lt Units: ug Elast./g Severe Pancreatic Insufficiency: <100 Moderate Pancreatic Insufficiency: 100 - 200 Normal: >200Performed at: [address] [id number] Director: Johnny Cruz MD, Phone: [phone] Performed By: #### L 7000.0750, L7000.0300 ####[facility] [address] [place], [address] Elastase.pancreatic (Stl) [M ass/Mass]Ordered By: Ralph Singh on 06-02-2024 Stool Pancreatic Elastase > 800 >200 [facility] Comment on above: Result Units: ug Zari st./g Severe Pancreatic Insufficiency: <100 Moderate Pancreatic Insufficiency: 100 - 200 Normal: >200Performed at: - [facility] [id number] Director: Johnny Cruz MD, Phone: [phone] Fat Ql (Stl)Ordered By: Quintin Singh on 06-02-2024 Stool Total Fats Normal . [facility] Comment on above: Normal (<100 Droplet s/HPF)Performed at: - [facility] [id number] Director: Awais Macias PhD, Phone: [phone] No Panel InformationOrdered By: Ralph Singh on 06-02-2024 Stool Neutral Fats Normal . [facility] Comment on above: Normal (<60 Droplets /HPF) Celiac AB,Comprehensiveon ANTIGLIADIN IGA 1 units Normal 0-19 [facility] Comment on above: Order Comment: Blanca c Antibodies tTG IgA/DGP IgG Screen Result Comment: Nega tive 0 - 19 Weak Positive 20 - 30 Moderate to Strong Positive >30 Performed By: #### L 501.2450, L801.1541, L3300.1800, L300.3900, L3410.2350, L501.6710, L801.1543, L500.4050, L3100.5440, L500.4100, L100.0100 ####[facility] [address] [place], [place], [id number] ANTIGLIADIN IGG 3 units Normal 0-19 [facility] Comment on above: Order Comment: Blanca c Antibodies tTG IgA/DGP IgG Screen Result Comment: Nega tive 0 - 19 Weak Positive 20 - 30 Moderate to Strong Positive >30 Performed By: #### L 501.2450, L801.1541, L3300.1800, L300.3900, L3410.2350, L501.6710, L801.1543, L500.4050, L3100.5440, L500.4100, L100.0100 ####[facility] [address] [place], [place], [id number] ENDOMYSIAL IGA Negative Normal Negative [facility] Comment on above: Order Comment: Blanca c Antibodies tTG IgA/DGP IgG Screen Performed By: #### L 501.2450, L801.1541, L3300.1800, L300.3900, L3410.2350, L501.6710, L801.1543, L500.4050, L3100.5440, L500.4100, L100.0100 ####[facility] [address] [place], [address] IMMUNOGLOB A QN < 5 Low 87-352 [facility] Comment on above: Order Comment: Blanca c Antibodies tTG IgA/DGP IgG Screen Result Comment: Resu lt confirmed on concentration. Performed By: #### L 501.2450, L801.1541, L3300.1800, L300.3900, L3410.2350, L501.6710, L801.1543, L500.4050, L3100.5440, L500.4100, L100.0100 ####[facility] [address] [place], [place], [id number] tTG IGA <2 Normal 0-3 [facility] Comment on above: Order Comment: Blanca c Antibodies tTG IgA/DGP IgG Screen Result Comment: Nega tive 0 - 3 Weak Positive 4 - 10 Positive >10 Tissue Transglutaminase (tTG) has been identified as the endomysial antigen. Studies have demonstr- ated that endomysial IgA antibodies have over 99% specificity for gluten sensitive enteropathy. Performed By: #### L 501.2450, L801.1541, L3300.1800, L300.3900, L3410.2350, L501.6710, L801.1543, L500.4050, L3100.5440, L500.4100, L100.0100 ####[facility] [address] [place], [place], [id number] tTG IGG 5 U/mL Normal 0-5 [facility] Comment on above: Order Comment: Blanca c Antibodies tTG IgA/DGP IgG Screen Result Comment: Nega tive 0 - 5 Weak Positive 6 - 9 Positive >9 Performed By: #### L 501.2450, L801.1541, L3300.1800, L300.3900, L3410.2350, L501.6710, L801.1543, L500.4050, L3100.5440, L500.4100, L100.0100 ####[facility] [address] [facility]. [place], [place], [id number] Gastrin, Serumon 06-01-2024 GASTRIN 740 pg/mL High 0-115 [facility] Comment on above: Order Comment: Blanca c Antibodies tTG IgA/DGP IgG Screen Result Comment: [facility] Immulite 2000 Immunochemiluminometric assay (ICMA)Values obtained with different assay methods or kits cannotbe used interchangeably. Results cannot be interpreted asabsolute evidence of the presence or absence of malignantdisease.Performed at: [address] [id number] Director: Awais Macias PhD, Phone: [phone] at: [address] [id number] Director: Johnny Cruz MD, Phone: [phone] Performed By: #### L 501.2450, L801.1541, L3300.1800, L300.3900, L3410.2350, L501.6710, L801.1543, L500.4050, L3100.5440, L500.4100, L100.0100 ####[facility] [address] [place], [address] Miscellaneous Lab Procedure 2on 06-01-2024 [facility] [place] LAB TEST 2 Normal [facility] Comment on above: Order Comment: Comme nts: Celiac Antibodies tTG IgA/DGP IgG ScreenSER/[id number] CELIAC ANTIBODY SER/RT Result Comment: TEST RESULTS LIMITStTG IgA/DGP IgG Combo Screen t-Transglutaminase (tTG) IgA <2 U/mL 0-3 Negative 0 - 3 Weak Positive 4 - 10 Positive >10 Tissue Transglutaminase (tTG) has been identified as the endomysial antigen. Studies have demonstr- ated that endomysial IgA antibodies have over 99% specificity for gluten sensitive enteropathy.Deamidated Gliadin Abs, IgG 3 units 0-19 Negative 0 - 19 Weak Positive 20 - 30 Moderate to Strong Positive >30 TESTING PERFORMED AT [facility]. ORIGINAL REPORT ON FILE IN LAB CONTAINS ADDITIONAL TEST SITE INFORMATION. Performed By: #### L 501.2450, L801.1541, L3300.1800, L300.3900, L3410.2350, L501.6710, L801.1543, L500.4050, L3100.5440, L500.4100, L100.0100 ####[facility] [address] [place], [address] JOSTIN Comprehensive Panelon JOSTIN TABLE Comment Normal . [facility] Comment on above: Result Comment: Auto antibody Disease Association ------- Condition Frequency ---------Antinuclear Antibody, SLE, mixed connectiveDirect (JOSTIN-D) tissue diseases ---------dsDNA SLE 40 - 60% ---------Chromatin Drug induced SLE 90% SLE 48 - 97% ---------SSA (Ro) SLE 25 - 35% Sjogren's Syndrome 40 - 70% Lupus 100% ---------SSB (La) SLE 10% Sjogren's Syndrome 30% ---------Sm (anti-Noriega) SLE 15 - 30% ---------COMPUTER RECYCLING WORKER Mixed Connective Tissue Disease 95%(U1 nRNP, SLE 30 - 50%anti-ribonucleoprotein) Polymyositis and/or Dermatomyositis 20% ---------Scl-70 (antiDNA Scleroderma (diffuse) 20 - 35%topoisomerase) Crest 13% ---------Cheyenne-1 Polymyositis and/or Dermatomyositis 20 - 40% ---------Centromere B Scleroderma - Crest variant 80%Performed at: [place] [id number] Director: Awais Macias PhD, Phone: [phone] Performed By: #### L 501.2450, L801.1541, L3300.1800, L300.3900, L3410.2350, L501.6710, L801.1543, L500.4050, L3100.5440, L500.4100, L100.0100 ####[facility] [address] [facility] [place], [address] ANTI-CENT B AB <0.2 Normal 0.0-0.9 [facility] Comment on above: Performed By: #### L 501.2450, L801.1541, L3300.1800, L300.3900, L3410.2350, L501.6710, L801.1543, L500.4050, L3100.5440, L500.4100, L100.0100 ####[facility] [address] [facility] [place], [address] ANTI-DNA (DS)AB <1 Normal 0-9 [facility] Comment on above: Result Comment: Nega tive <5 Equivocal 5 - 9 Positive >9 Performed By: #### L 501.2450, L801.1541, L3300.1800, L300.3900, L3410.2350, L501.6710, L801.1543, L500.4050, L3100.5440, L500.4100, L100.0100 ####[facility] [address] [place], [address] ANTI-CHEYENNE-1 <0.2 Normal 0.0-0.9 [facility] Comment on above: Performed By: #### L 501.2450, L801.1541, L3300.1800, L300.3900, L3410.2350, L501.6710, L801.1543, L500.4050, L3100.5440, L500.4100, L100.0100 ####[facility] [address] [place], [address] ANTI-SS-A < 0.2 Normal 0.0-0.9 [facility] Comment on above: Performed By: #### L 501.2450, L801.1541, L3300.1800, L300.3900, L3410.2350, L501.6710, L801.1543, L500.4050, L3100.5440, L500.4100, L100.0100 ####[facility] [address] [place], [address] ANTI-SS-B < 0.2 Normal 0.0-0.9 [facility] Comment on above: Performed By: #### L 501.2450, L801.1541, L3300.1800, L300.3900, L3410.2350, L501.6710, L801.1543, L500.4050, L3100.5440, L500.4100, L100.0100 ####[facility] [address] [place], [address] ANTICHROMATIN <0.2 Normal 0.0-0.9 [facility] Comment on above: Performed By: #### L 501.2450, L801.1541, L3300.1800, L300.3900, L3410.2350, L501.6710, L801.1543, L500.4050, L3100.5440, L500.4100, L100.0100 ####[facility] [address] [place], [address] ANTISCLERODERM <0.2 Normal 0.0-0.9 [facility] Comment on above: Performed By: #### L 501.2450, L801.1541, L3300.1800, L300.3900, L3410.2350, L501.6710, L801.1543, L500.4050, L3100.5440, L500.4100, L100.0100 ####[facility] [address] [place], [address] COMPUTER RECYCLING WORKER Ab 0.2 AI Normal 0.0-0.9 [facility] Comment on above: Performed By: #### L 501.2450, L801.1541, L3300.1800, L300.3900, L3410.2350, L501.6710, L801.1543, L500.4050, L3100.5440, L500.4100, L100.0100 ####[facility] [address] [place], [address] NORIEGA Ab <0.2 Normal 0.0-0.9 [facility] Comment on above: Performed By: #### L 501.2450, L801.1541, L3300.1800, L300.3900, L3410.2350, L501.6710, L801.1543, L500.4050, L3100.5440, L500.4100, L100.0100 ####[facility] [address] [place], [place], [phone] CBC W/Diff, Automatedon 11-0 -2023 Absolute Lymph 2.37 X10 3/uL Normal 0.83-4.51 [facility] Comment on above: Performed By: #### L 501.2450, L801.1541, L3300.1800, L300.3900, L3410.2350, L501.6710, L801.1543, L500.4050, L3100.5440, L500.4100, L100.0100 ####[facility] [address] [place], [address](549 Absolute Neut 5.6 X10 3/uL Normal 2.0-7.7 [facility] Comment on above: Performed By: #### L 501.2450, L801.1541, L3300.1800, L300.3900, L3410.2350, L501.6710, L801.1543, L500.4050, L3100.5440, L500.4100, L100.0100 ####[facility] [address] [place], [address] Basophils/100 WBC (Bld) 0.7 % Normal 0-1 [facility] Comment on above: Performed By: #### L 501.2450, L801.1541, L3300.1800, L300.3900, L3410.2350, L501.6710, L801.1543, L500.4050, L3100.5440, L500.4100, L100.0100 ####[facility] [address] [place], [address] Eosinophils/100 WBC (Bld) 2.7 % Normal 0-5 [facility] Comment on above: Performed By: #### L 501.2450, L801.1541, L3300.1800, L300.3900, L3410.2350, L501.6710, L801.1543, L500.4050, L3100.5440, L500.4100, L100.0100 ####[facility] [address] [place], [place], [phone](249) Erythrocyte distribution width (RBC) [Ratio] 15.5 % High 11.6-14.6 [facility] Comment on above: Performed By: #### L 501.2450, L801.1541, L3300.1800, L300.3900, L3410.2350, L501.6710, L801.1543, L500.4050, L3100.5440, L500.4100, L100.0100 ####[facility] [address] [place], [address](744) Hematocrit (Bld) [Volume fraction] 37.4 % Normal 37-47 [facility] Comment on above: Performed By: #### L 501.2450, L801.1541, L3300.1800, L300.3900, L3410.2350, L501.6710, L801.1543, L500.4050, L3100.5440, L500.4100, L100.0100 ####[facility] [address] [place], [address](661) Hemoglobin (Bld) [Mass/Vol] 11.3 g/dL Low 12.0-15.0 [facility] Comment on above: Performed By: #### L 501.2450, L801.1541, L3300.1800, L300.3900, L3410.2350, L501.6710, L801.1543, L500.4050, L3100.5440, L500.4100, L100.0100 ####[facility] [address] [place], [address](787) IG% 0.900 Normal 0.0-0.9 [facility] Comment on above: Result Comment: IG% - Immature Granulocytes (promyelocytes, myelocytes andmetamyelocytes) > 1% indicates that a LEFT SHIFT is Present. Performed By: #### L 501.2450, L801.1541, L3300.1800, L300.3900, L3410.2350, L501.6710, L801.1543, L500.4050, L3100.5440, L500.4100, L100.0100 ####[facility] [address] [place], [address] Lymphocytes/100 WBC (Bld) 26.6 % Normal 19-41 [facility] Comment on above: Performed By: #### L 501.2450, L801.1541, L3300.1800, L300.3900, L3410.2350, L501.6710, L801.1543, L500.4050, L3100.5440, L500.4100, L100.0100 ####[facility] [address] [place], [address] MCH (RBC) [Entitic mass] 23.9 pg Low 27.0-32.0 [facility] Comment on above: Performed By: #### L 501.2450, L801.1541, L3300.1800, L300.3900, L3410.2350, L501.6710, L801.1543, L500.4050, L3100.5440, L500.4100, L100.0100 ####[facility] [address] [place], [address] MCHC (RBC) [Mass/Vol] 30.2 g/dL Low 32-36 [facility] Comment on above: Performed By: #### L 501.2450, L801.1541, L3300.1800, L300.3900, L3410.2350, L501.6710, L801.1543, L500.4050, L3100.5440, L500.4100, L100.0100 ####[facility] [address] [place], [address] MCV (RBC) [Entitic vol] 79.1 fL Low 81-99 [facility] Comment on above: Performed By: #### L 501.2450, L801.1541, L3300.1800, L300.3900, L3410.2350, L501.6710, L801.1543, L500.4050, L3100.5440, L500.4100, L100.0100 ####[facility] [address] [place], [address] Monocytes/100 WBC (Bld) 6.5 % Normal 0-10 [facility] Comment on above: Performed By: #### L 501.2450, L801.1541, L3300.1800, L300.3900, L3410.2350, L501.6710, L801.1543, L500.4050, L3100.5440, L500.4100, L100.0100 ####[facility] [address] [place], [address] Neutrophils/100 WBC (Bld) 62.6 % Normal 47-70 [facility] Comment on above: Performed By: #### L 501.2450, L801.1541, L3300.1800, L300.3900, L3410.2350, L501.6710, L801.1543, L500.4050, L3100.5440, L500.4100, L100.0100 ####[facility] [address] [place], [address] Nucleated RBC (Bld) [#/Vol] 0 10*3/uL Normal 0-5 [facility] Comment on above: Performed By: #### L 501.2450, L801.1541, L3300.1800, L300.3900, L3410.2350, L501.6710, L801.1543, L500.4050, L3100.5440, L500.4100, L100.0100 ####[facility] [address] [place], [address] Platelet mean volume (Bld) [Entitic vol] 9.7 fL Normal 6.2-12.0 [facility] Comment on above: Performed By: #### L 501.2450, L801.1541, L3300.1800, L300.3900, L3410.2350, L501.6710, L801.1543, L500.4050, L3100.5440, L500.4100, L100.0100 ####[facility] [address] [place], [address] Platelets (Bld) [#/Vol] 259 10*3/uL Normal 150-450 [facility] Comment on above: Performed By: #### L 501.2450, L801.1541, L3300.1800, L300.3900, L3410.2350, L501.6710, L801.1543, L500.4050, L3100.5440, L500.4100, L100.0100 ####[facility] [address] [place], [address] RBC (Bld) [#/Vol] 4.73 10*6/uL Normal 4.2-5.4 [facility] Comment on above: Performed By: #### L 501.2450, L801.1541, L3300.1800, L300.3900, L3410.2350, L501.6710, L801.1543, L500.4050, L3100.5440, L500.4100, L100.0100 ####[facility] [address] [place], [address] RDW SD 44.1 fl High 35.1-43.9 [facility] Comment on above: Performed By: #### L 501.2450, L801.1541, L3300.1800, L300.3900, L3410.2350, L501.6710, L801.1543, L500.4050, L3100.5440, L500.4100, L100.0100 ####[facility] [address] [place], [place], [phone] WBC (Bld) [#/Vol] 8.9 10*3/uL Normal 4.4-11.0 [facility] Comment on above: Performed By: #### L 501.2450, L801.1541, L3300.1800, L300.3900, L3410.2350, L501.6710, L801.1543, L500.4050, L3100.5440, L500.4100, L100.0100 ####[facility] [address] [facility] [place], [address] CRPon 05-29-2024 C-REACTIVE PROT 25.90 mg/L High 0.0-3.0 [facility] Comment on above: Order Comment: Blanca c Antibodies tTG IgA/DGP IgG Screen Result Comment: C-Re active Protein (CRP) provides useful information for thediagnosis, therapy and monitoring of inflammatory processesand associated diseases. For the evaluation of Relative Riskfor Cardiovascular Disease, a High Sensitivity CRP (HSCRP)should be ordered. Performed By: #### L 501.2450, L801.1541, L3300.1800, L300.3900, L3410.2350, L501.6710, L801.1543, L500.4050, L3100.5440, L500.4100, L100.0100 ####[facility] [address] [facility] [place], [place], [phone] Comprehensive Metabolic Prof ilon 05-29-2024 Albumin [Mass/Vol] 3.6 g/dL Normal 3.2-5.0 [facility] Comment on above: Order Comment: Blanca c Antibodies tTG IgA/DGP IgG Screen Performed By: #### L 501.2450, L801.1541, L3300.1800, L300.3900, L3410.2350, L501.6710, L801.1543, L500.4050, L3100.5440, L500.4100, L100.0100 ####[facility] [address] [facility] [place], [address] Albumin/Globulin [Mass ratio] 0.7 {ratio} Low 0.9-2.4 [facility] Comment on above: Order Comment: Blanca c Antibodies tTG IgA/DGP IgG Screen Performed By: #### L 501.2450, L801.1541, L3300.1800, L300.3900, L3410.2350, L501.6710, L801.1543, L500.4050, L3100.5440, L500.4100, L100.0100 ####[facility] [address] [place], [place], [phone] ALK P 122 U/L High 45-117 [facility] Comment on above: Order Comment: Blanca c Antibodies tTG IgA/DGP IgG Screen Performed By: #### L 501.2450, L801.1541, L3300.1800, L300.3900, L3410.2350, L501.6710, L801.1543, L500.4050, L3100.5440, L500.4100, L100.0100 ####[facility] [address] [facility]. [place], [place], [phone] ALT [Catalytic activity/Vol] 38 U/L Normal 13-56 [facility] Comment on above: Order Comment: Blanca c Antibodies tTG IgA/DGP IgG Screen Performed By: #### L 501.2450, L801.1541, L3300.1800, L300.3900, L3410.2350, L501.6710, L801.1543, L500.4050, L3100.5440, L500.4100, L100.0100 ####[facility] [address] [place], [place], [id number] AST [Catalytic activity/Vol] 38 U/L High 15-37 [facility] Comment on above: Order Comment: Blanca c Antibodies tTG IgA/DGP IgG Screen Performed By: #### L 501.2450, L801.1541, L3300.1800, L300.3900, L3410.2350, L501.6710, L801.1543, L500.4050, L3100.5440, L500.4100, L100.0100 ####[facility] [address] [place], [place], [phone](042) Bilirubin [Mass/Vol] 0.70 mg/dL Normal 0.20-1.00 [facility] Comment on above: Order Comment: Blanca c Antibodies tTG IgA/DGP IgG Screen Result Comment: For patients on eltrombopag therapy, use of [place] TBIL is not recommended. Performed By: #### L 501.2450, L801.1541, L3300.1800, L300.3900, L3410.2350, L501.6710, L801.1543, L500.4050, L3100.5440, L500.4100, L100.0100 ####[facility] [address] [place], [place], [phone] BUN/CRE 19.1 RATIO Normal 10-20 [facility] Comment on above: Order Comment: Blanca c Antibodies tTG IgA/DGP IgG Screen Performed By: #### L 501.2450, L801.1541, L3300.1800, L300.3900, L3410.2350, L501.6710, L801.1543, L500.4050, L3100.5440, L500.4100, L100.0100 ####[facility] [address] [place], [place], [address] CA,Total 10.0 mg/dL Normal 8.5-10.1 [facility] Comment on above: Order Comment: Blanca c Antibodies tTG IgA/DGP IgG Screen Performed By: #### L 501.2450, L801.1541, L3300.1800, L300.3900, L3410.2350, L501.6710, L801.1543, L500.4050, L3100.5440, L500.4100, L100.0100 ####[facility] [address] [place], [address] Chloride [Moles/Vol] 99 mmol/L Normal 98-107 [facility] Comment on above: Order Comment: Blanca c Antibodies tTG IgA/DGP IgG Screen Performed By: #### L 501.2450, L801.1541, L3300.1800, L300.3900, L3410.2350, L501.6710, L801.1543, L500.4050, L3100.5440, L500.4100, L100.0100 ####[facility] [address] [place], [address] CO2 [Moles/Vol] 31.0 mmol/L Normal 21.0-32.0 [facility] Comment on above: Order Comment: Blanca c Antibodies tTG IgA/DGP IgG Screen Performed By: #### L 501.2450, L801.1541, L3300.1800, L300.3900, L3410.2350, L501.6710, L801.1543, L500.4050, L3100.5440, L500.4100, L100.0100 ####[facility] [address] [place], [address] Creatinine [Mass/Vol] 0.89 mg/dL Normal 0.55-1.02 [facility] Comment on above: Order Comment: Blanca c Antibodies tTG IgA/DGP IgG Screen Result Comment: The validity of the calculated GFR GFRAA in patients over70 years has not been determined. Clinical correlation isessential. Performed By: #### L 501.2450, L801.1541, L3300.1800, L300.3900, L3410.2350, L501.6710, L801.1543, L500.4050, L3100.5440, L500.4100, L100.0100 ####[facility] [address] [place], [place], [id number] EST GFR - AA 84 mL/min Normal >60 [facility] Comment on above: Order Comment: Blanca c Antibodies tTG IgA/DGP IgG Screen Result Comment: Afri can Taiwanese GFR Calc Performed By: #### L 501.2450, L801.1541, L3300.1800, L300.3900, L3410.2350, L501.6710, L801.1543, L500.4050, L3100.5440, L500.4100, L100.0100 ####[facility] [address] [place], [address] GAP 4 Low 5-15 [facility] Comment on above: Order Comment: Blanca c Antibodies tTG IgA/DGP IgG Screen Performed By: #### L 501.2450, L801.1541, L3300.1800, L300.3900, L3410.2350, L501.6710, L801.1543, L500.4050, L3100.5440, L500.4100, L100.0100 ####[facility] [address] [place], [address] GFR/1.73 sq M.predicted among non-blacks MDRD (S/P/Bld) [Vol rate/Area] 69 mL/min/{1.73_m2} Normal >60 [facility] Comment on above: Order Comment: Blanca c Antibodies tTG IgA/DGP IgG Screen Result Comment: Non- GFR Calc Performed By: #### L 501.2450, L801.1541, L3300.1800, L300.3900, L3410.2350, L501.6710, L801.1543, L500.4050, L3100.5440, L500.4100, L100.0100 ####[facility] [address] [place], [place], [phone](805) Globulin (S) [Mass/Vol] 5.5 g/dL High 2.2-4.2 [facility] Comment on above: Order Comment: Blanca c Antibodies tTG IgA/DGP IgG Screen Performed By: #### L 501.2450, L801.1541, L3300.1800, L300.3900, L3410.2350, L501.6710, L801.1543, L500.4050, L3100.5440, L500.4100, L100.0100 ####[facility] [address] [place], [place], [phone](918) Glucose [Mass/Vol] 160 mg/dL High 74-106 [facility] Comment on above: Order Comment: Blanca c Antibodies tTG IgA/DGP IgG Screen Result Comment: Fast ing Glucose result greater than or equal to 126 mg/dLsuggests DIABETES MELLITUS per A.D.A. criteria. Performed By: #### L 501.2450, L801.1541, L3300.1800, L300.3900, L3410.2350, L501.6710, L801.1543, L500.4050, L3100.5440, L500.4100, L100.0100 ####[facility] [address] [place], [place], [phone](277) Potassium [Moles/Vol] 4.4 mmol/L Normal 3.5-5.1 [facility] Comment on above: Order Comment: Blanca c Antibodies tTG IgA/DGP IgG Screen Performed By: #### L 501.2450, L801.1541, L3300.1800, L300.3900, L3410.2350, L501.6710, L801.1543, L500.4050, L3100.5440, L500.4100, L100.0100 ####[facility] [address], [address] Sodium [Moles/Vol] 134 mmol/L Low 136-145 [facility] Comment on above: Order Comment: Blanca c Antibodies tTG IgA/DGP IgG Screen Performed By: #### L 501.2450, L801.1541, L3300.1800, L300.3900, L3410.2350, L501.6710, L801.1543, L500.4050, L3100.5440, L500.4100, L100.0100 ####[facility] [address] [place], [place], [id number] T PROT 9.1 g/dL High 6.4-8.2 [facility] Comment on above: Order Comment: Blanca c Antibodies tTG IgA/DGP IgG Screen Performed By: #### L 501.2450, L801.1541, L3300.1800, L300.3900, L3410.2350, L501.6710, L801.1543, L500.4050, L3100.5440, L500.4100, L100.0100 ####[facility] [address] [place], [place], [id number] Urea nitrogen [Mass/Vol] 17 mg/dL Normal 7-18 [facility] Comment on above: Order Comment: Blanca c Antibodies tTG IgA/DGP IgG Screen Performed By: #### L 501.2450, L801.1541, L3300.1800, L300.3900, L3410.2350, L501.6710, L801.1543, L500.4050, L3100.5440, L500.4100, L100.0100 ####[facility] [address] [place], [place], [id number] Gastroenterology Visit Repor ton 05-29-2024 Gastroenterology Visit Report Normal [facility] Lipaseon 05-29-2024 Lipase [Catalytic activity/Vol] 38 U/L Normal 13-75 [facility] Comment on above: Order Comment: Blanca c Antibodies tTG IgA/DGP IgG Screen Result Comment: Ronnie mcleod note:LIPASE revised reference range effective 22.New Lipase methodology. Expected to produce lower valuesthan the previous assay method.NEW Reference Range: 13 - 75 U/L Performed By: #### L 501.2450, L801.1541, L3300.1800, L300.3900, L3410.2350, L501.6710, L801.1543, L500.4050, L3100.5440, L500.4100, L100.0100 ####[facility] [address] [place], [place], [id number] Lipid Profileon 05-29-2024 Cholesterol [Mass/Vol] 183 mg/dL Normal 200 [facility] Comment on above: Order Comment: Blanca c Antibodies tTG IgA/DGP IgG Screen Result Comment: <200 mg/dL Desirable 200-240 mg/dL Borderline >240 mg/dL High Risk Performed By: #### L 501.2450, L801.1541, L3300.1800, L300.3900, L3410.2350, L501.6710, L801.1543, L500.4050, L3100.5440, L500.4100, L100.0100 ####[facility] [address] [place], [place], [id number] Cholesterol in HDL [Mass/Vol] 35 mg/dL Low [facility] Comment on above: Order Comment: Blanca c Antibodies tTG IgA/DGP IgG Screen Result Comment: The drugs N-Acetylcysteine and Metamizole may falselydepress this assay. Reference Range HDL <40 mg/dL Low HDL Cholesterol HDL >or= 60 mg/dL High HDL Cholesterol Performed By: #### L 501.2450, L801.1541, L3300.1800, L300.3900, L3410.2350, L501.6710, L801.1543, L500.4050, L3100.5440, L500.4100, L100.0100 ####[facility] [address] [place], [address] Cholesterol in LDL [Mass/Vol] 95 mg/dL Normal 0-130 [facility] Comment on above: Order Comment: Blanca c Antibodies tTG IgA/DGP IgG Screen Performed By: #### L 501.2450, L801.1541, L3300.1800, L300.3900, L3410.2350, L501.6710, L801.1543, L500.4050, L3100.5440, L500.4100, L100.0100 ####[facility] [address] [facility] [place], [address] Cholesterol in VLDL [Mass/Vol] 53 mg/dL High 5-40 [facility] Comment on above: Order Comment: Blanca c Antibodies tTG IgA/DGP IgG Screen Performed By: #### L 501.2450, L801.1541, L3300.1800, L300.3900, L3410.2350, L501.6710, L801.1543, L500.4050, L3100.5440, L500.4100, L100.0100 ####[facility] [address] [facility] [place], [address] Triglyceride [Mass/Vol] 265 mg/dL High [facility] Comment on above: Order Comment: Blanca c Antibodies tTG IgA/DGP IgG Screen Result Comment: The drugs N-Acetylcysteine and Metamizole may falselydepress this assay.Serum Triglycerides Reference Interval Normal <150 mg/dL Borderline high 150 - 199 mg/dL High 200 - 499 mg/dL Very High > or = 500 mg/dL Performed By: #### L 501.2450, L801.1541, L3300.1800, L300.3900, L3410.2350, L501.6710, L801.1543, L500.4050, L3100.5440, L500.4100, L100.0100 ####[facility] [address] [facility] [place], [address] Prothrombin Time w/INRon 11- 08-2024 INR Coag (PPP) [Relative time] 1.2 {INR} Normal [facility] Comment on above: Performed By: #### L 501.2450, L801.1541, L3300.1800, L300.3900, L3410.2350, L501.6710, L801.1543, L500.4050, L3100.5440, L500.4100, L100.0100 ####[facility] [address] [place], [address] PT Coag (PPP) [Time] 15.1 s High 11.7-14.9 [facility] Comment on above: Performed By: #### L 501.2450, L801.1541, L3300.1800, L300.3900, L3410.2350, L501.6710, L801.1543, L500.4050, L3100.5440, L500.4100, L100.0100 ####[facility] [address] [place], [place], [address] SURG PATH REQUESTon 05-27-20 Case Report [facility] Comment on above: Result Comment: Surg ical Pathology Report Case: [id number] Authorizing Provider: Karolina Piedra, Collected: 05/27/2024 08:28 AM KHADIJAH-ALEXEI, INDIRA Ordering Location[facility] Received: 05/27/2024 08:29 AM DEJA Pathologist: Mohit Almanzar MD Specimen: SURG PATH, Gastric Mass, Biopsy Performed By: #### P CA #### [facility] (DEFAULT) [address] [place] [address] Clinical History Request received fro semaj Rod MD for second opinion consultation on slides received: Please review outside path; endoscopy 04/04/2024 at [facility]. Interested in margins, and grade, size, etc. Thank you. Pre-Op Diagnosis: upper GI bleed. Normal [facility] Comment on above: Performed By: #### P CA #### [facility] (DEFAULT) [address] [place] [address] Diagnosis Comments All immunohistochemi hammad stains were performed at outside institution and submitted for review. [facility] Comment on above: Performed By: #### P CA #### [facility] (DEFAULT) [address] [place] [address] Gross Description [facility] Comment on above: Result Comment: The following material(s) are received from [facility], [address] [place] [address], with an identifying surgical pathology report: 7 H&E slide(s) and 16 non-H&E slide(s), labeled [id number]. Outside materials are returned in sixty (60) days under separate cover with our number recorded on them. Grosser for this case was: Rosa Hardin Performed By: #### P CA #### [facility] (DEFAULT) [address] [place] [address] Microscopic Description A microscopic examination was performed. [facility] Comment on above: Performed By: #### P CA #### [facility] (DEFAULT) [address] [place] [address] Pathologic Diagnosis [facility] Comment on above: Result Comment: Outs jina Slides: [id number] (04/04/2024) A. 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 Tumor is present at both lateral margins and at the deep margin. The depth of invasion can not be assessed. No lymphovascular invasion identified. No perineural invasion is identified. Proliferation index as per Ki67 IHC is approximately 7% Lesion is positive for neuroendocrine markers chromogranin, CD56 and synaptophysin as well as for keratin AE1/AE3 (Focal) CK8 and CDX2; and it is negative for CK7. CK8 and CK20. Performed By: #### P CA #### [facility] (DEFAULT) [address] [place] [address] Professional Interpretation Performed at: Normal [facility] Comment on above: Result Comment: [facility] For Immediate Release to Patient's MyChart? Yes [address] [address] Performed By: #### P CA #### [facility] (DEFAULT) [address] [place] [address] AFP, Tumor Markeron 05-14-20 24 AFP TUMOR PAPA < 1.8 Normal 0.0-9.2 [facility] Comment on above: Order Comment: Test( s) 407916-Bjphuc, Serum or Plasmawas developed and its performance characteristicsdetermined by [employer]. It has not been cleared or approvedby the Food and Drug Administration.NNN Result Comment: [facility] Electrochemiluminescence Immunoassay(ECLIA)Values obtained with different assay methods or kits cannotbe used interchangeably. Results cannot be interpreted asabsolute evidence of the presence or absence of malignantdisease.This test is not interpretable in females. Performed By: #### L 501.9520, L506.0400, L803.2200, L100.0100, L500.4050, L3300.0700, L500.4100, L800.1280, L3410.2400, L501.9985, L3100.1850, L504.2610, L3300.0100, L3400.0700, L300.3900, L3200.1100, L3000.0375, L503.6030, L3890.6005, L501.6710, L3300.1200, L3100.5450, L503.6550, L501.4700, L503.5510, L3130.0010, L506.1000, L3100.3425 ####[facility] [address] [place], [place], [address] ANCAon 05-14-2024 Atypical pANCA <1:20 Normal Neg:<1:20 [facility] Comment on above: Order Comment: Test( s) 116732-Ormhpx, Serum or Plasmawas developed and its performance characteristicsdetermined by [facility]. It has not been cleared or approvedby the Food and Drug Administration.NNN Result Comment: The atypical pANCA pattern has been observed in asignificant percentage of patients with ulcerative colitis,primary sclerosing cholangitis and autoimmune hepatitis. Performed By: #### L 501.9520, L506.0400, L803.2200, L100.0100, L500.4050, L3300.0700, L500.4100, L800.1280, L3410.2400, L501.9985, L3100.1850, L504.2610, L3300.0100, L3400.0700, L300.3900, L3200.1100, L3000.0375, L503.6030, L3890.6005, L501.6710, L3300.1200, L3100.5450, L503.6550, L501.4700, L503.5510, L3130.0010, L506.1000, L3100.3425 ####[facility] [address] [facility] [place], [place], [address] Cytoplasmic Ab 1:80 Abnormal Neg:<1:20 [facility] Comment on above: Order Comment: Test( s) 152069-Handzp, Serum or Plasmawas developed and its performance characteristicsdetermined by [facility]. It has not been cleared or approvedby the Food and Drug Administration.NNN Performed By: #### L 501.9520, L506.0400, L803.2200, L100.0100, L500.4050, L3300.0700, L500.4100, L800.1280, L3410.2400, L501.9985, L3100.1850, L504.2610, L3300.0100, L3400.0700, L300.3900, L3200.1100, L3000.0375, L503.6030, L3890.6005, L501.6710, L3300.1200, L3100.5450, L503.6550, L501.4700, L503.5510, L3130.0010, L506.1000, L3100.3425 ####[facility] [address] [facility] [place], [address] Perinuclear Ab. <1:20 Normal Neg:<1:20 [facility] Comment on above: Order Comment: Test( s) 841785-Juiozd, Serum or Plasmawas developed and its performance characteristicsdetermined by [facility]. It has not been cleared or approvedby the Food and Drug Administration.NNN Result Comment: The presence of positive fluorescence exhibiting P-ANCA orC-ANCA patterns alone is not specific for the diagnosis ofWegener's Granulomatosis (WG) or microscopic polyangiitis.Decisions about treatment should not be based solely onANCA IFA results. The International ANCA Group Consensusrecommends follow up testing of positive sera with both NY-3 and MPO-ANCA enzyme immunoassays. As many as 5% serumsamples are positive only by EIA. Ref. AM J Clin Nxshft9195;111:507-513. Performed By: #### L 501.9520, L506.0400, L803.2200, L100.0100, L500.4050, L3300.0700, L500.4100, L800.1280, L3410.2400, L501.9985, L3100.1850, L504.2610, L3300.0100, L3400.0700, L300.3900, L3200.1100, L3000.0375, L503.6030, L3890.6005, L501.6710, L3300.1200, L3100.5450, L503.6550, L501.4700, L503.5510, L3130.0010, L506.1000, L3100.3425 ####[facility] [address] [place], [place], [address] Anti-Smooth Muscle ABSon ANTISMOOTH MUSC 24 Units Abnormal 0-19 [facility] Comment on above: Order Comment: Test( s) 641718-Sfbpae, Serum or Plasmawas developed and its performance characteristicsdetermined by [employer]. It has not been cleared or approvedby the Food and Drug Administration.NNN Result Comment: Nega tive 0 - 19 Weak positive 20 - 30 Moderate to strong positive >30 Actin Antibodies are found in 52-85% of patients with autoimmune hepatitis or chronic active hepatitis and in 22% of patients with primary biliary cirrhosis. Performed By: #### L 501.9520, L506.0400, L803.2200, L100.0100, L500.4050, L3300.0700, L500.4100, L800.1280, L3410.2400, L501.9985, L3100.1850, L504.2610, L3300.0100, L3400.0700, L300.3900, L3200.1100, L3000.0375, L503.6030, L3890.6005, L501.6710, L3300.1200, L3100.5450, L503.6550, L501.4700, L503.5510, L3130.0010, L506.1000, L3100.3425 ####[facility] [address] [place], [place], [address] Celiac Disease Profile ENDOMYSIAL IGA Negative Normal Negative [facility] Comment on above: Order Comment: Test( s) 944490-Klasvf, Serum or Plasmawas developed and its performance characteristicsdetermined by [facility]. It has not been cleared or approvedby the Food and Drug Administration.NNN Performed By: #### L 501.9520, L506.0400, L803.2200, L100.0100, L500.4050, L3300.0700, L500.4100, L800.1280, L3410.2400, L501.9985, L3100.1850, L504.2610, L3300.0100, L3400.0700, L300.3900, L3200.1100, L3000.0375, L503.6030, L3890.6005, L501.6710, L3300.1200, L3100.5450, L503.6550, L501.4700, L503.5510, L3130.0010, L506.1000, L3100.3425 ####[facility] [address] [facility] [place], [place], [address] tTG IGA <2 Normal 0-3 [facility] Comment on above: Order Comment: Test( s) 143749-Efjdmg, Serum or Plasmawas developed and its performance characteristicsdetermined by [employer]. It has not been cleared or approvedby the Food and Drug Administration.NNN Result Comment: Nega tive 0 - 3 Weak Positive 4 - 10 Positive >10 Tissue Transglutaminase (tTG) has been identified as the endomysial antigen. Studies have demonstr- ated that endomysial IgA antibodies have over 99% specificity for gluten sensitive enteropathy. Performed By: #### L 501.9520, L506.0400, L803.2200, L100.0100, L500.4050, L3300.0700, L500.4100, L800.1280, L3410.2400, L501.9985, L3100.1850, L504.2610, L3300.0100, L3400.0700, L300.3900, L3200.1100, L3000.0375, L503.6030, L3890.6005, L501.6710, L3300.1200, L3100.5450, L503.6550, L501.4700, L503.5510, L3130.0010, L506.1000, L3100.3425 ####[facility] [address] [facility] [place], [place], [address] tTG IGG 7 U/mL Abnormal 0-5 [facility] Comment on above: Order Comment: Test( s) 483832-Slaaqh, Serum or Plasmawas developed and its performance characteristicsdetermined by [facility]. It has not been cleared or approvedby the Food and Drug Administration.NNN Result Comment: Nega tive 0 - 5 Weak Positive 6 - 9 Positive >9 Performed By: #### L 501.9520, L506.0400, L803.2200, L100.0100, L500.4050, L3300.0700, L500.4100, L800.1280, L3410.2400, L501.9985, L3100.1850, L504.2610, L3300.0100, L3400.0700, L300.3900, L3200.1100, L3000.0375, L503.6030, L3890.6005, L501.6710, L3300.1200, L3100.5450, L503.6550, L501.4700, L503.5510, L3130.0010, L506.1000, L3100.3425 ####[facility] [address] [place], [place], [address] Ceruloplasminon 05-14-2024 CERULOPLASMIN 34.4 mg/dL Normal 19.0-39.0 [facility] Comment on above: Order Comment: Test( s) 290028-Czmsza, Serum or Plasmawas developed and its performance characteristicsdetermined by [employer]. It has not been cleared or approvedby the Food and Drug Administration.NNN Performed By: #### L 501.9520, L506.0400, L803.2200, L100.0100, L500.4050, L3300.0700, L500.4100, L800.1280, L3410.2400, L501.9985, L3100.1850, L504.2610, L3300.0100, L3400.0700, L300.3900, L3200.1100, L3000.0375, L503.6030, L3890.6005, L501.6710, L3300.1200, L3100.5450, L503.6550, L501.4700, L503.5510, L3130.0010, L506.1000, L3100.3425 ####[facility] [address] [place], [place], [address] Copper, Serum or Plasmaon COPPER, SERUM 130 ug/dL Normal 80-158 [facility] Comment on above: Order Comment: Test( s) 937748-Cjliwx, Serum or Plasmawas developed and its performance characteristicsdetermined by [employer]. It has not been cleared or approvedby the Food and Drug Administration.NNN Result Comment: Dete ction Limit = 5 Performed By: #### L 501.9520, L506.0400, L803.2200, L100.0100, L500.4050, L3300.0700, L500.4100, L800.1280, L3410.2400, L501.9985, L3100.1850, L504.2610, L3300.0100, L3400.0700, L300.3900, L3200.1100, L3000.0375, L503.6030, L3890.6005, L501.6710, L3300.1200, L3100.5450, L503.6550, L501.4700, L503.5510, L3130.0010, L506.1000, L3100.3425 ####[facility] [address] [place], [place], [address] Haptoglobinon 05-14-2024 HAPTOGLOBIN 182 mg/dL Normal 33-346 [facility] Comment on above: Order Comment: Test( s) 437396-Mhbchy, Serum or Plasmawas developed and its performance characteristicsdetermined by [employer]. It has not been cleared or approvedby the Food and Drug Administration.NNN Result Comment: Perf ormed at: [facility] [address] [id number] Director: Awais Macias PhD, Phone: [phone] at: [facility] [address] [id number] Director: Johnny Cruz MD, Phone: [phone] Performed By: #### L 501.9520, L506.0400, L803.2200, L100.0100, L500.4050, L3300.0700, L500.4100, L800.1280, L3410.2400, L501.9985, L3100.1850, L504.2610, L3300.0100, L3400.0700, L300.3900, L3200.1100, L3000.0375, L503.6030, L3890.6005, L501.6710, L3300.1200, L3100.5450, L503.6550, L501.4700, L503.5510, L3130.0010, L506.1000, L3100.3425 ####[facility] [address] [place], [place], [address] Hepatitis Panel Acuteon 10-2 COMMENT Comment Normal . [facility] Comment on above: Order Comment: Test( s) 467705-Uwovfa, Serum or Plasmawas developed and its performance characteristicsdetermined by [employer]. It has not been cleared or approvedby the Food and Drug Administration.NNN Result Comment: Not infected with HCV unless early or acute infection issuspected (which may be delayed in an immunocompromisedindividual), or other evidence exists to indicate HCVinfection. Performed By: #### L 501.9520, L506.0400, L803.2200, L100.0100, L500.4050, L3300.0700, L500.4100, L800.1280, L3410.2400, L501.9985, L3100.1850, L504.2610, L3300.0100, L3400.0700, L300.3900, L3200.1100, L3000.0375, L503.6030, L3890.6005, L501.6710, L3300.1200, L3100.5450, L503.6550, L501.4700, L503.5510, L3130.0010, L506.1000, L3100.3425 ####[facility] [address] [place], [place], [address] HEP B CORE,IgM Negative Normal Negative [facility] Comment on above: Order Comment: Test( s) 968245-Rxpuuh, Serum or Plasmawas developed and its performance characteristicsdetermined by [employer]. It has not been cleared or approvedby the Food and Drug Administration.NNN Performed By: #### L 501.9520, L506.0400, L803.2200, L100.0100, L500.4050, L3300.0700, L500.4100, L800.1280, L3410.2400, L501.9985, L3100.1850, L504.2610, L3300.0100, L3400.0700, L300.3900, L3200.1100, L3000.0375, L503.6030, L3890.6005, L501.6710, L3300.1200, L3100.5450, L503.6550, L501.4700, L503.5510, L3130.0010, L506.1000, L3100.3425 ####[facility] [address] [facility] [place], [address] HEP B SURF AG Negative Normal Negative [facility] Comment on above: Order Comment: Test( s) 152946-Umsdgv, Serum or Plasmawas developed and its performance characteristicsdetermined by [employer]. It has not been cleared or approvedby the Food and Drug Administration.NNN Performed By: #### L 501.9520, L506.0400, L803.2200, L100.0100, L500.4050, L3300.0700, L500.4100, L800.1280, L3410.2400, L501.9985, L3100.1850, L504.2610, L3300.0100, L3400.0700, L300.3900, L3200.1100, L3000.0375, L503.6030, L3890.6005, L501.6710, L3300.1200, L3100.5450, L503.6550, L501.4700, L503.5510, L3130.0010, L506.1000, L3100.3425 ####[facility] [address] [place], [address] HEP C VIRUS AB Non-Reactive Normal Non Reactive [facility] Comment on above: Order Comment: Test( s) 618047-Jcrilb, Serum or Plasmawas developed and its performance characteristicsdetermined by [employer]. It has not been cleared or approvedby the Food and Drug Administration.NNN Performed By: #### L 501.9520, L506.0400, L803.2200, L100.0100, L500.4050, L3300.0700, L500.4100, L800.1280, L3410.2400, L501.9985, L3100.1850, L504.2610, L3300.0100, L3400.0700, L300.3900, L3200.1100, L3000.0375, L503.6030, L3890.6005, L501.6710, L3300.1200, L3100.5450, L503.6550, L501.4700, L503.5510, L3130.0010, L506.1000, L3100.3425 ####[facility] [address], [address] HEPATITIS A-IgM Negative Normal Negative [facility] Comment on above: Order Comment: Test( s) 696756-Dcblfb, Serum or Plasmawas developed and its performance characteristicsdetermined by [employer]. It has not been cleared or approvedby the Food and Drug Administration.NNN Result Comment: A ne gative anti-HAV IgM result suggests no recent orcurrent HAV infection. Performed By: #### L 501.9520, L506.0400, L803.2200, L100.0100, L500.4050, L3300.0700, L500.4100, L800.1280, L3410.2400, L501.9985, L3100.1850, L504.2610, L3300.0100, L3400.0700, L300.3900, L3200.1100, L3000.0375, L503.6030, L3890.6005, L501.6710, L3300.1200, L3100.5450, L503.6550, L501.4700, L503.5510, L3130.0010, L506.1000, L3100.3425 ####[facility] [address] [place], [address] NITIN + Protein Elect, Serumon 05-14-2024 Albumin [Mass/Vol] 3.2 g/dL Normal 2.9-4.4 [facility] Comment on above: Order Comment: Test( s) 881797-Uoidcj, Serum or Plasmawas developed and its performance characteristicsdetermined by [employer]. It has not been cleared or approvedby the Food and Drug Administration.NNN Performed By: #### L 501.9520, L506.0400, L803.2200, L100.0100, L500.4050, L3300.0700, L500.4100, L800.1280, L3410.2400, L501.9985, L3100.1850, L504.2610, L3300.0100, L3400.0700, L300.3900, L3200.1100, L3000.0375, L503.6030, L3890.6005, L501.6710, L3300.1200, L3100.5450, L503.6550, L501.4700, L503.5510, L3130.0010, L506.1000, L3100.3425 ####[facility] [address] [place], [place], [address] Albumin/Globulin [Mass ratio] 0.7 {ratio} Normal 0.7-1.7 [facility] Comment on above: Order Comment: Test( s) 701992-Phfpbe, Serum or Plasmawas developed and its performance characteristicsdetermined by [employer]. It has not been cleared or approvedby the Food and Drug Administration.NNN Performed By: #### L 501.9520, L506.0400, L803.2200, L100.0100, L500.4050, L3300.0700, L500.4100, L800.1280, L3410.2400, L501.9985, L3100.1850, L504.2610, L3300.0100, L3400.0700, L300.3900, L3200.1100, L3000.0375, L503.6030, L3890.6005, L501.6710, L3300.1200, L3100.5450, L503.6550, L501.4700, L503.5510, L3130.0010, L506.1000, L3100.3425 ####[facility] [address] [place], [address] RMBHY-1-MWYZ 0.3 g/dL Normal 0.0-0.4 [facility] Comment on above: Order Comment: Test( s) 301834-Uuwzfj, Serum or Plasmawas developed and its performance characteristicsdetermined by [employer]. It has not been cleared or approvedby the Food and Drug Administration.NNN Performed By: #### L 501.9520, L506.0400, L803.2200, L100.0100, L500.4050, L3300.0700, L500.4100, L800.1280, L3410.2400, L501.9985, L3100.1850, L504.2610, L3300.0100, L3400.0700, L300.3900, L3200.1100, L3000.0375, L503.6030, L3890.6005, L501.6710, L3300.1200, L3100.5450, L503.6550, L501.4700, L503.5510, L3130.0010, L506.1000, L3100.3425 ####[facility] [address] [facility] [place], [address] WRVJU-7-SRPF 0.9 g/dL Normal 0.4-1.0 [facility] Comment on above: Order Comment: Test( s) 399735-Tlqiyi, Serum or Plasmawas developed and its performance characteristicsdetermined by [employer]. It has not been cleared or approvedby the Food and Drug Administration.NNN Performed By: #### L 501.9520, L506.0400, L803.2200, L100.0100, L500.4050, L3300.0700, L500.4100, L800.1280, L3410.2400, L501.9985, L3100.1850, L504.2610, L3300.0100, L3400.0700, L300.3900, L3200.1100, L3000.0375, L503.6030, L3890.6005, L501.6710, L3300.1200, L3100.5450, L503.6550, L501.4700, L503.5510, L3130.0010, L506.1000, L3100.3425 ####[facility] [address] [facility] [place], [address](037) BETA GLOBULIN 1.0 g/dL Normal 0.7-1.3 [facility] Comment on above: Order Comment: Test( s) 872851-Iauihv, Serum or Plasmawas developed and its performance characteristicsdetermined by [employer]. It has not been cleared or approvedby the Food and Drug Administration.NNN Performed By: #### L 501.9520, L506.0400, L803.2200, L100.0100, L500.4050, L3300.0700, L500.4100, L800.1280, L3410.2400, L501.9985, L3100.1850, L504.2610, L3300.0100, L3400.0700, L300.3900, L3200.1100, L3000.0375, L503.6030, L3890.6005, L501.6710, L3300.1200, L3100.5450, L503.6550, L501.4700, L503.5510, L3130.0010, L506.1000, L3100.3425 ####[facility] [address] [place], [address](193) GAMMA GLOBULIN 2.7 g/dL High 0.4-1.8 [facility] Comment on above: Order Comment: Test( s) 627055-Bzmbqp, Serum or Plasmawas developed and its performance characteristicsdetermined by [employer]. It has not been cleared or approvedby the Food and Drug Administration.NNN Performed By: #### L 501.9520, L506.0400, L803.2200, L100.0100, L500.4050, L3300.0700, L500.4100, L800.1280, L3410.2400, L501.9985, L3100.1850, L504.2610, L3300.0100, L3400.0700, L300.3900, L3200.1100, L3000.0375, L503.6030, L3890.6005, L501.6710, L3300.1200, L3100.5450, L503.6550, L501.4700, L503.5510, L3130.0010, L506.1000, L3100.3425 ####[facility] [address] [place], [address] Globulin (S) [Mass/Vol] 4.9 g/dL Abnormal 2.2-3.9 [facility] Comment on above: Order Comment: Test( s) 732160-Fdzwho, Serum or Plasmawas developed and its performance characteristicsdetermined by [employer]. It has not been cleared or approvedby the Food and Drug Administration.NNN Performed By: #### L 501.9520, L506.0400, L803.2200, L100.0100, L500.4050, L3300.0700, L500.4100, L800.1280, L3410.2400, L501.9985, L3100.1850, L504.2610, L3300.0100, L3400.0700, L300.3900, L3200.1100, L3000.0375, L503.6030, L3890.6005, L501.6710, L3300.1200, L3100.5450, L503.6550, L501.4700, L503.5510, L3130.0010, L506.1000, L3100.3425 ####[facility] [address] [place], [address] NITIN RESULT,S Comment Normal . [facility] Comment on above: Order Comment: Test( s) 199254-Pocism, Serum or Plasmawas developed and its performance characteristicsdetermined by [employer]. It has not been cleared or approvedby the Food and Drug Administration.NNN Result Comment: No m onoclonality detected. Performed By: #### L 501.9520, L506.0400, L803.2200, L100.0100, L500.4050, L3300.0700, L500.4100, L800.1280, L3410.2400, L501.9985, L3100.1850, L504.2610, L3300.0100, L3400.0700, L300.3900, L3200.1100, L3000.0375, L503.6030, L3890.6005, L501.6710, L3300.1200, L3100.5450, L503.6550, L501.4700, L503.5510, L3130.0010, L506.1000, L3100.3425 ####[facility] [address] [facility]. [place], [place], [id number] IMMUNOGLOB A QN < 5 Low 87-352 [facility] Comment on above: Order Comment: Test( s) 023850-Oclgxt, Serum or Plasmawas developed and its performance characteristicsdetermined by [employer]. It has not been cleared or approvedby the Food and Drug Administration.NNN Result Comment: Resu lt confirmed on concentration. Performed By: #### L 501.9520, L506.0400, L803.2200, L100.0100, L500.4050, L3300.0700, L500.4100, L800.1280, L3410.2400, L501.9985, L3100.1850, L504.2610, L3300.0100, L3400.0700, L300.3900, L3200.1100, L3000.0375, L503.6030, L3890.6005, L501.6710, L3300.1200, L3100.5450, L503.6550, L501.4700, L503.5510, L3130.0010, L506.1000, L3100.3425 ####[facility] [address] [place], [address] IMMUNOGLOB G QN 2914 mg/dL High 586-1602 [facility] Comment on above: Order Comment: Test( s) 759867-Gjepge, Serum or Plasmawas developed and its performance characteristicsdetermined by [employer]. It has not been cleared or approvedby the Food and Drug Administration.NNN Performed By: #### L 501.9520, L506.0400, L803.2200, L100.0100, L500.4050, L3300.0700, L500.4100, L800.1280, L3410.2400, L501.9985, L3100.1850, L504.2610, L3300.0100, L3400.0700, L300.3900, L3200.1100, L3000.0375, L503.6030, L3890.6005, L501.6710, L3300.1200, L3100.5450, L503.6550, L501.4700, L503.5510, L3130.0010, L506.1000, L3100.3425 ####[facility] [address], [address] IMMUNOGLOB M QN 180 mg/dL Normal 26-217 [facility] Comment on above: Order Comment: Test( s) [id number]-Sczwja, Serum or Plasmawas developed and its performance characteristicsdetermined by [employer]. It has not been cleared or approvedby the Food and Drug Administration.NNN Performed By: #### L 501.9520, L506.0400, L803.2200, L100.0100, L500.4050, L3300.0700, L500.4100, L800.1280, L3410.2400, L501.9985, L3100.1850, L504.2610, L3300.0100, L3400.0700, L300.3900, L3200.1100, L3000.0375, L503.6030, L3890.6005, L501.6710, L3300.1200, L3100.5450, L503.6550, L501.4700, L503.5510, L3130.0010, L506.1000, L3100.3425 ####[facility] [address] [place], [address] M-Shadi Not Observed Normal Not Observed [facility] Comment on above: Order Comment: Test( s) 080331-Jgrlys, Serum or Plasmawas developed and its performance characteristicsdetermined by [employer]. It has not been cleared or approvedby the Food and Drug Administration.NNN Performed By: #### L 501.9520, L506.0400, L803.2200, L100.0100, L500.4050, L3300.0700, L500.4100, L800.1280, L3410.2400, L501.9985, L3100.1850, L504.2610, L3300.0100, L3400.0700, L300.3900, L3200.1100, L3000.0375, L503.6030, L3890.6005, L501.6710, L3300.1200, L3100.5450, L503.6550, L501.4700, L503.5510, L3130.0010, L506.1000, L3100.3425 ####[facility] [address] [facility] [address] [place], [place], [id number] NOTE: Comment Normal . [facility] Comment on above: Order Comment: Test( s) 765504-Zvibhk, Serum or Plasmawas developed and its performance characteristicsdetermined by [employer]. It has not been cleared or approvedby the Food and Drug Administration.NNN Result Comment: Prot ein electrophoresis scan will follow via computer,mail, or family practice nurse practitioner delivery. Performed By: #### L 501.9520, L506.0400, L803.2200, L100.0100, L500.4050, L3300.0700, L500.4100, L800.1280, L3410.2400, L501.9985, L3100.1850, L504.2610, L3300.0100, L3400.0700, L300.3900, L3200.1100, L3000.0375, L503.6030, L3890.6005, L501.6710, L3300.1200, L3100.5450, L503.6550, L501.4700, L503.5510, L3130.0010, L506.1000, L3100.3425 ####[facility] [address] [place], [place], [id number] Protein [Mass/Vol] 8.1 g/dL Normal 6.0-8.5 [facility] Comment on above: Order Comment: Test( s) [id number]-Mpxxbp, Serum or Plasmawas developed and its performance characteristicsdetermined by [employer]. It has not been cleared or approvedby the Food and Drug Administration.NNN Performed By: #### L 501.9520, L506.0400, L803.2200, L100.0100, L500.4050, L3300.0700, L500.4100, L800.1280, L3410.2400, L501.9985, L3100.1850, L504.2610, L3300.0100, L3400.0700, L300.3900, L3200.1100, L3000.0375, L503.6030, L3890.6005, L501.6710, L3300.1200, L3100.5450, L503.6550, L501.4700, L503.5510, L3130.0010, L506.1000, L3100.3425 ####[facility] [address] [place], [address] Immunoglobulins G/A/M/Logan IMMUNOGLOB E QN 4 IU/mL Low 6-495 [facility] Comment on above: Order Comment: Test( s) 836233-Physzi, Serum or Plasmawas developed and its performance characteristicsdetermined by [employer]. It has not been cleared or approvedby the Food and Drug Administration.NNN Performed By: #### L 501.9520, L506.0400, L803.2200, L100.0100, L500.4050, L3300.0700, L500.4100, L800.1280, L3410.2400, L501.9985, L3100.1850, L504.2610, L3300.0100, L3400.0700, L300.3900, L3200.1100, L3000.0375, L503.6030, L3890.6005, L501.6710, L3300.1200, L3100.5450, L503.6550, L501.4700, L503.5510, L3130.0010, L506.1000, L3100.3425 ####[facility] [address] [facility] [place], [address] [place] Lambda Light Chainson 05-14-2024 FR KAPPA LT CHN 98.4 mg/L Abnormal 3.3-19.4 [facility] Comment on above: Order Comment: Test( s) 128530-Fsjwxh, Serum or Plasmawas developed and its performance characteristicsdetermined by [employer]. It has not been cleared or approvedby the Food and Drug Administration.NNN Performed By: #### L 501.9520, L506.0400, L803.2200, L100.0100, L500.4050, L3300.0700, L500.4100, L800.1280, L3410.2400, L501.9985, L3100.1850, L504.2610, L3300.0100, L3400.0700, L300.3900, L3200.1100, L3000.0375, L503.6030, L3890.6005, L501.6710, L3300.1200, L3100.5450, L503.6550, L501.4700, L503.5510, L3130.0010, L506.1000, L3100.3425 ####[facility] [address] [place], [place], [id number] FR LAMBDA LT CH 61.7 mg/L Abnormal 5.7-26.3 [facility] Comment on above: Order Comment: Test( s) 702244-Qudxmd, Serum or Plasmawas developed and its performance characteristicsdetermined by [employer]. It has not been cleared or approvedby the Food and Drug Administration.NNN Performed By: #### L 501.9520, L506.0400, L803.2200, L100.0100, L500.4050, L3300.0700, L500.4100, L800.1280, L3410.2400, L501.9985, L3100.1850, L504.2610, L3300.0100, L3400.0700, L300.3900, L3200.1100, L3000.0375, L503.6030, L3890.6005, L501.6710, L3300.1200, L3100.5450, L503.6550, L501.4700, L503.5510, L3130.0010, L506.1000, L3100.3425 ####[facility] [address] [place], [address] KAPPA/LAMBDA % 1.59 Normal 0.26-1.65 [facility] Comment on above: Order Comment: Test( s) [id number]-Ucxnyx, Serum or Plasmawas developed and its performance characteristicsdetermined by [employer]. It has not been cleared or approvedby the Food and Drug Administration.NNN Performed By: #### L 501.9520, L506.0400, L803.2200, L100.0100, L500.4050, L3300.0700, L500.4100, L800.1280, L3410.2400, L501.9985, L3100.1850, L504.2610, L3300.0100, L3400.0700, L300.3900, L3200.1100, L3000.0375, L503.6030, L3890.6005, L501.6710, L3300.1200, L3100.5450, L503.6550, L501.4700, L503.5510, L3130.0010, L506.1000, L3100.3425 ####[facility] [address] [place], [address] Gastroenterology Visit Repor ton 05-12-2024 Gastroenterology Visit Report Normal [facility] .GFRon 05-11-2024 GFR Non- 61 ml/min/1.73sqm Normal [facility] Comment on above: Result Comment: GFR Population mean for , Non- Americans Ages 20-29 = 116 mL/min/1.73 sq.m. Ages 30-39 = 107 mL/min/1.73 sq.m. Ages 40-49 = 99 mL/min/1.73 sq.m. Ages 50-59 = 93 mL/min/1.73 sq.m. Ages 60-69 = 85 mL/min/1.73 sq.m. Ages 70+ = 75 mL/min/1.73 sq.m. Chronic Kidney Disease: Less than 60 mL/min/1.73 square meters End Stage Renal Disease: Less than 15 mL/min/1.73 square meters Performed By: #### C MP, ADIFF, CBC, PBNP, GFR, ANEU #### [address] [address] GFR 73 ml/min/1.73sqm Normal [facility] Comment on above: Result Comment: GFR Population mean for , Non- Americans Ages 20-29 = 116 mL/min/1.73 sq.m. Ages 30-39 = 107 mL/min/1.73 sq.m. Ages 40-49 = 99 mL/min/1.73 sq.m. Ages 50-59 = 93 mL/min/1.73 sq.m. Ages 60-69 = 85 mL/min/1.73 sq.m. Ages 70+ = 75 mL/min/1.73 sq.m. Chronic Kidney Disease: Less than 60 mL/min/1.73 square meters End Stage Renal Disease: Less than 15 mL/min/1.73 square meters Performed By: #### C MP, ADIFF, CBC, PBNP, GFR, ANEU #### [address] [place], [place] [address] JOSTIN w/ Reflex Mult Confirmon 05-11-2024 JOSTIN TABLE TNP Normal [facility] Comment on above: Performed By: #### L 501.9520, L506.0400, L803.2200, L100.0100, L500.4050, L3300.0700, L500.4100, L800.1280, L3410.2400, L501.9985, L3100.1850, L504.2610, L3300.0100, L3400.0700, L300.3900, L3200.1100, L3000.0375, L503.6030, L3890.6005, L501.6710, L3300.1200, L3100.5450, L503.6550, L501.4700, L503.5510, L3130.0010, L506.1000, L3100.3425 ####[facility] [address] [facility] [place], [address] ANTI-CENT B AB TNP Normal [facility] Comment on above: Performed By: #### L 501.9520, L506.0400, L803.2200, L100.0100, L500.4050, L3300.0700, L500.4100, L800.1280, L3410.2400, L501.9985, L3100.1850, L504.2610, L3300.0100, L3400.0700, L300.3900, L3200.1100, L3000.0375, L503.6030, L3890.6005, L501.6710, L3300.1200, L3100.5450, L503.6550, L501.4700, L503.5510, L3130.0010, L506.1000, L3100.3425 ####[facility] [address] [facility] [place], [address] ANTI-CHEYENNE-1 TNP Normal [facility] Comment on above: Performed By: #### L 501.9520, L506.0400, L803.2200, L100.0100, L500.4050, L3300.0700, L500.4100, L800.1280, L3410.2400, L501.9985, L3100.1850, L504.2610, L3300.0100, L3400.0700, L300.3900, L3200.1100, L3000.0375, L503.6030, L3890.6005, L501.6710, L3300.1200, L3100.5450, L503.6550, L501.4700, L503.5510, L3130.0010, L506.1000, L3100.3425 ####[facility] [address] [facility]. [place], [place], [id number] ANTISCLERODERM TNP Normal [facility] Comment on above: Performed By: #### L 501.9520, L506.0400, L803.2200, L100.0100, L500.4050, L3300.0700, L500.4100, L800.1280, L3410.2400, L501.9985, L3100.1850, L504.2610, L3300.0100, L3400.0700, L300.3900, L3200.1100, L3000.0375, L503.6030, L3890.6005, L501.6710, L3300.1200, L3100.5450, L503.6550, L501.4700, L503.5510, L3130.0010, L506.1000, L3100.3425 ####[facility] [address] [facility] [place], [place], [id number] COMPUTER RECYCLING WORKER Ab TNP [facility] Comment on above: Performed By: #### L 501.9520, L506.0400, L803.2200, L100.0100, L500.4050, L3300.0700, L500.4100, L800.1280, L3410.2400, L501.9985, L3100.1850, L504.2610, L3300.0100, L3400.0700, L300.3900, L3200.1100, L3000.0375, L503.6030, L3890.6005, L501.6710, L3300.1200, L3100.5450, L503.6550, L501.4700, L503.5510, L3130.0010, L506.1000, L3100.3425 ####[facility] [address] [place], [place], [id number] NORIEGA Ab TNP Normal [facility] Comment on above: Performed By: #### L 501.9520, L506.0400, L803.2200, L100.0100, L500.4050, L3300.0700, L500.4100, L800.1280, L3410.2400, L501.9985, L3100.1850, L504.2610, L3300.0100, L3400.0700, L300.3900, L3200.1100, L3000.0375, L503.6030, L3890.6005, L501.6710, L3300.1200, L3100.5450, L503.6550, L501.4700, L503.5510, L3130.0010, L506.1000, L3100.3425 ####[facility] [address] [facility] [place], [place], [id number] ANTI-DNA (DS)AB TNP [facility] Comment on above: Performed By: #### L 501.9520, L506.0400, L803.2200, L100.0100, L500.4050, L3300.0700, L500.4100, L800.1280, L3410.2400, L501.9985, L3100.1850, L504.2610, L3300.0100, L3400.0700, L300.3900, L3200.1100, L3000.0375, L503.6030, L3890.6005, L501.6710, L3300.1200, L3100.5450, L503.6550, L501.4700, L503.5510, L3130.0010, L506.1000, L3100.3425 ####[facility] [address] [facility]. [place], [place], [id number] ANTI-SS-A TNP Normal [facility] Comment on above: Performed By: #### L 501.9520, L506.0400, L803.2200, L100.0100, L500.4050, L3300.0700, L500.4100, L800.1280, L3410.2400, L501.9985, L3100.1850, L504.2610, L3300.0100, L3400.0700, L300.3900, L3200.1100, L3000.0375, L503.6030, L3890.6005, L501.6710, L3300.1200, L3100.5450, L503.6550, L501.4700, L503.5510, L3130.0010, L506.1000, L3100.3425 ####[facility] [address] [place], [address] ANTI-SS-B TNP Normal [facility] Comment on above: Performed By: #### L 501.9520, L506.0400, L803.2200, L100.0100, L500.4050, L3300.0700, L500.4100, L800.1280, L3410.2400, L501.9985, L3100.1850, L504.2610, L3300.0100, L3400.0700, L300.3900, L3200.1100, L3000.0375, L503.6030, L3890.6005, L501.6710, L3300.1200, L3100.5450, L503.6550, L501.4700, L503.5510, L3130.0010, L506.1000, L3100.3425 ####[facility] [address] [place], [address] ANTICHROMATIN TNP Normal [facility] Comment on above: Performed By: #### L 501.9520, L506.0400, L803.2200, L100.0100, L500.4050, L3300.0700, L500.4100, L800.1280, L3410.2400, L501.9985, L3100.1850, L504.2610, L3300.0100, L3400.0700, L300.3900, L3200.1100, L3000.0375, L503.6030, L3890.6005, L501.6710, L3300.1200, L3100.5450, L503.6550, L501.4700, L503.5510, L3130.0010, L506.1000, L3100.3425 ####[facility] [address] [facility]. [place], [place], [id number] Anti-Mitochondrial ABon 04-22 ANTIMITOCHON AB <20.0 Normal 0.0-20.0 [facility] Comment on above: Result Comment: Nega tive 0.0 - 20.0 Equivocal 20.1 - 24.9 Positive >24.9Mitochondrial (M2) Antibodies are found in 90-96% ofpatients with primary biliary cirrhosis. Performed By: #### L 501.9520, L506.0400, L803.2200, L100.0100, L500.4050, L3300.0700, L500.4100, L800.1280, L3410.2400, L501.9985, L3100.1850, L504.2610, L3300.0100, L3400.0700, L300.3900, L3200.1100, L3000.0375, L503.6030, L3890.6005, L501.6710, L3300.1200, L3100.5450, L503.6550, L501.4700, L503.5510, L3130.0010, L506.1000, L3100.3425 ####[facility] [address] [facility]. [place], [place], [id number] CMPon 05-11-2024 Albumin Level 3.5 G/dL Normal 3.5-5.0 [facility] Comment on above: Performed By: #### C MP, ADIFF, CBC, PBNP, GFR, ANEU #### [address] [address] Albumin/Globulin [Mass ratio] 0.7 {ratio} Low 1.1-2.5 [facility] Comment on above: Performed By: #### C MP, ADIFF, CBC, PBNP, GFR, ANEU #### [address] [address] ALP [Catalytic activity/Vol] 180 U/L High 40-135 [facility] Comment on above: Performed By: #### C MP, ADIFF, CBC, PBNP, GFR, ANEU #### [address] [address] ALT [Catalytic activity/Vol] 34 U/L Normal 14-59 [facility] Comment on above: Performed By: #### C MP, ADIFF, CBC, PBNP, GFR, ANEU #### [address] [address] AST [Catalytic activity/Vol] 36 U/L Normal 10-40 [facility] Comment on above: Performed By: #### C MP, ADIFF, CBC, PBNP, GFR, ANEU #### [address] [address] Bili Total 0.5 mg/dL Normal 0.2-1.0 [facility] Comment on above: Result Comment: Use of this assay is not recommended for patients undergoing treatment with eltrombopag due to the potential for falsely elevated results. Performed By: #### C MP, ADIFF, CBC, PBNP, GFR, ANEU #### [address] [address] BUN/Creatinine Ratio 17 ratio Normal 7-[address] [facility] Comment on above: Performed By: #### C MP, ADIFF, CBC, PBNP, GFR, ANEU #### [address] [address] Calcium [Mass/Vol] 9.4 mg/dL Normal 8.4-10.2 [facility] Comment on above: Performed By: #### C MP, ADIFF, CBC, PBNP, GFR, ANEU #### [address] [address] Chloride [Moles/Vol] 96 mmol/L Low 98-[address] [facility] Comment on above: Performed By: #### C MP, ADIFF, CBC, PBNP, GFR, ANEU #### [address] [address] CO2 [Moles/Vol] 34 mmol/L High 22-29 [facility] Comment on above: Performed By: #### C MP, ADIFF, CBC, PBNP, GFR, ANEU #### [place] [address] Creatinine [Mass/Vol] 0.95 mg/dL Normal 0.55-1.02 [facility] Comment on above: Result Comment: Test ing performed on Siemens Dimension EXL analyzer using a modified kinetic Avila technique. Performed By: #### C MP, ADIFF, CBC, PBNP, GFR, ANEU #### [address] [address] Electrolyte Balance 6.0 mEq/L Normal 4.0-15.0 [facility] Comment on above: Performed By: #### C MP, ADIFF, CBC, PBNP, GFR, ANEU #### [address] [address] Globulin 5.2 G/dL Normal [facility] Comment on above: Performed By: #### C MP, ADIFF, CBC, PBNP, GFR, ANEU #### [address] [address] Glucose [Mass/Vol] 157 mg/dL High 70-105 [facility] Comment on above: Performed By: #### C MP, ADIFF, CBC, PBNP, GFR, ANEU #### [place] [address] [place], [place] [address] Potassium [Moles/Vol] 4.8 mmol/L Normal 3.5-5.1 [facility] Comment on above: Performed By: #### C MP, ADIFF, CBC, PBNP, GFR, ANEU #### [address] [place], [place] [address] Sodium [Moles/Vol] 136 mmol/L Normal 136-145 [facility] Comment on above: Performed By: #### C MP, ADIFF, CBC, PBNP, GFR, ANEU #### [address] [place], [place] [address] Total Protein 8.7 G/dL High 6.4-8.2 [facility] Comment on above: Performed By: #### C MP, ADIFF, CBC, PBNP, GFR, ANEU #### [address] [address] Urea nitrogen [Mass/Vol] 16 mg/dL Normal 7-18 [facility] Comment on above: Performed By: #### C MP, ADIFF, CBC, PBNP, GFR, ANEU #### [address] [address] HIV - Hon 05-11-2024 HIV Non-Reactive Normal Nonreactive [facility] Comment on above: Performed By: #### L 501.9520, L506.0400, L803.2200, L100.0100, L500.4050, L3300.0700, L500.4100, L800.1280, L3410.2400, L501.9985, L3100.1850, L504.2610, L3300.0100, L3400.0700, L300.3900, L3200.1100, L3000.0375, L503.6030, L3890.6005, L501.6710, L3300.1200, L3100.5450, L503.6550, L501.4700, L503.5510, L3130.0010, L506.1000, L3100.3425 ####[facility] [address] [place], [address] LABORATORYOrdered By: SYSTEM SYSTEM on 05-11-2024 Albumin BCP dye [Mass/Vol] 3.5 G/dL Normal 3.5 - 5.0 G/dL AO ADM SS Albumin/Globulin [Mass ratio] 0.7 {ratio} Low 1.1 - 2.5 ratio AO ADM SS ALP [Catalytic activity/Vol] 180 U/L High 40 - 135 U/L AO ADM SS ALT With P-5'-P [Catalytic activity/Vol] 34 U/L Normal 14 - 59 U/L AO ADM SS AST With P-5'-P [Catalytic activity/Vol] 36 U/L Normal 10 - 40 U/L AO ADM SS Bilirubin [Mass/Vol] 0.5 mg/dL Normal 0.2 - 1 .0 mg/dL AO ADM SS Comment on above: Interpretive Data: U se of this assay is not recommended for patients undergoing treatment with eltrombopag due to the potential for falsely elevated results. Calcium [Mass/Vol] 9.4 mg/dL Normal 8.4 - 10. 2 mg/dL AO ADM SS Chloride [Moles/Vol] 96 mmol/L Low 98 - 10 7 mmol/L AO ADM SS CO2 [Moles/Vol] 34 mmol/L High 22 - 29 mmol/L AO ADM SS Creatinine [Mass/Vol] 0.95 mg/dL Normal 0.55 - 1.02 mg/dL AO ADM SS Comment on above: Interpretive Data: T esting performed on Siemens Dimension EXL analyzer using a modified kinetic Avila technique. Electrolyte Balance 6.0 mEq/L Normal 4.0 - 15 .0 mEq/L AO ADM SS GFR/1.73 sq M.predicted among blacks MDRD (S/P/Bld) [Vol rate/Area] 73 ml/min/1.73sqm Invalid Interpretation Code AO Chemistry S Comment on above: Interpretive Data: GFR Population mean for , Non- Americans Ages 20-29 = 116 mL/min/1.73 sq.m. Ages 30-39 = 107 mL/min/1.73 sq.m. Ages 40-49 = 99 mL/min/1.73 sq.m. Ages 50-59 = 93 mL/min/1.73 sq.m. Ages 60-69 = 85 mL/min/1.73 sq.m. Ages 70+ = 75 mL/min/1.73 sq.m. Chronic Kidney Disease: Less than 60 mL/min/1.73 square meters End Stage Renal Disease: Less than 15 mL/min/1.73 square meters GFR/1.73 sq M.predicted among non-blacks MDRD (S/P/Bld) [Vol rate/Area] 61 ml/min/1.73sqm Invalid Interpretation Code AO Chemistry S Comment on above: Interpretive Data: GFR Population mean for , Non- Americans Ages 20-29 = 116 mL/min/1.73 sq.m. Ages 30-39 = 107 mL/min/1.73 sq.m. Ages 40-49 = 99 mL/min/1.73 sq.m. Ages 50-59 = 93 mL/min/1.73 sq.m. Ages 60-69 = 85 mL/min/1.73 sq.m. Ages 70+ = 75 mL/min/1.73 sq.m. Chronic Kidney Disease: Less than 60 mL/min/1.73 square meters End Stage Renal Disease: Less than 15 mL/min/1.73 square meters Globulin 5.2 G/dL Invalid Interpretation Code AO ADM SS Glucose [Mass/Vol] 157 mg/dL High 70 - 105 mg/dL AO ADM SS Potassium [Moles/Vol] 4.8 mmol/L Normal 3.5 - 5.1 mmol/L AO ADM SS Protein [Mass/Vol] 8.7 G/dL High 6.4 - 8.2 G/dL AO ADM SS Sodium [Moles/Vol] 136 mmol/L Normal 136 - 145 mmol/L AO ADM SS Urea nitrogen [Mass/Vol] 16 mg/dL Normal 7 - 18 mg/dL AO ADM SS Urea nitrogen/Creatinine [Mass ratio] 17 ratio Normal 7 - 27 ratio AO ADM SS LABORATORYOrdered By: Kassidy Lee on 05-11-2024 Cholesterol [Mass/Vol] 191 mg/dL Normal 0 - 200 mg/dL AO ADM SS Comment on above: Interpretive Data: C holesterol Reference Interval: Less than 200 Desirable 200-239 Borderline high risk 240 and above High risk Cholesterol in HDL [Mass/Vol] 38 mg/dL Low 40 - 60 mg/dL AO ADM SS Cholesterol in LDL [Mass/Vol] 91 mg/dL Normal 0 - 130 mg/dL AO ADM SS Triglyceride [Mass/Vol] 311 mg/dL High 0 - 150 mg/dL AO ADM SS Comment on above: Interpretive Data: T riglyceride Reference Interval: Less than 150 Normal 150-199 Borderline high risk 200-499 High risk 500 or higher Very high risk LIPIDon 05-11-2024 Cholesterol [Mass/Vol] 191 mg/dL Normal 0-200 [facility] Comment on above: Result Comment: Chol esterol Reference Interval: Less than 200 Desirable 200-239 Borderline high risk 240 and above High risk Performed By: #### C MP, ADIFF, CBC, PBNP, GFR, ANEU #### [address] [address] Cholesterol in HDL [Mass/Vol] 38 mg/dL Low 40-60 [facility] Comment on above: Performed By: #### C MP, ADIFF, CBC, PBNP, GFR, ANEU #### [address] [address] Cholesterol in LDL [Mass/Vol] 91 mg/dL Normal 0-130 [facility] Comment on above: Performed By: #### C MP, ADIFF, CBC, PBNP, GFR, ANEU #### [address] [address] Triglyceride [Mass/Vol] 311 mg/dL High 0-150 [facility] Comment on above: Result Comment: Trig lyceride Reference Interval: Less than 150 Normal 150-199 Borderline high risk 200-499 High risk 500 or higher Very high risk Performed By: #### C MP, ADIFF, CBC, PBNP, GFR, ANEU #### [address] [address] Vitamin D,25 Hydroxyon 05-11 Vitamin D 25-OH 11.2 ng/mL Normal [facility] Comment on above: Result Comment: Jessica min D 25(OH) Status Range Deficiency <20 ng/mL (50nmol/L) Insufficiency 20 - 30 ng/mL (50 - 75 nmol/L) Sufficiency 30 - 100 ng/mL (75 - 250 nmol/L) Toxicity >100 ng/mL (>250 nmol/L) Performed By: #### L 501.9520, L506.0400, L803.2200, L100.0100, L500.4050, L3300.0700, L500.4100, L800.1280, L3410.2400, L501.9985, L3100.1850, L504.2610, L3300.0100, L3400.0700, L300.3900, L3200.1100, L3000.0375, L503.6030, L3890.6005, L501.6710, L3300.1200, L3100.5450, L503.6550, L501.4700, L503.5510, L3130.0010, L506.1000, L3100.3425 ####[facility] [id number] [facility]. [place], [place], [id number] Ammoniaon 05-09-2024 Ammonia (P) [Moles/Vol] 23.0 umol/L Normal 11-32 [facility] Comment on above: Performed By: #### L 501.9520, L506.0400, L803.2200, L100.0100, L500.4050, L3300.0700, L500.4100, L800.1280, L3410.2400, L501.9985, L3100.1850, L504.2610, L3300.0100, L3400.0700, L300.3900, L3200.1100, L3000.0375, L503.6030, L3890.6005, L501.6710, L3300.1200, L3100.5450, L503.6550, L501.4700, L503.5510, L3130.0010, L506.1000, L3100.3425 ####[facility] [id number] [facility]. [place], [place], [id number] Bilirubin, Directon 05-09-20 24 Bilirubin.direct [Mass/Vol] 0.10 mg/dL Normal 0.00-0.30 [facility] Comment on above: Order Comment: N1 Performed By: #### L 501.9520, L506.0400, L803.2200, L100.0100, L500.4050, L3300.0700, L500.4100, L800.1280, L3410.2400, L501.9985, L3100.1850, L504.2610, L3300.0100, L3400.0700, L300.3900, L3200.1100, L3000.0375, L503.6030, L3890.6005, L501.6710, L3300.1200, L3100.5450, L503.6550, L501.4700, L503.5510, L3130.0010, L506.1000, L3100.3425 ####[facility] [id number] [facility]. [place], [place], [id number] CBC W/Diff, Automatedon 10- Absolute Lymph 2.80 X10 3/uL Normal 0.83-4.51 [facility] Comment on above: Performed By: #### L 501.9520, L506.0400, L803.2200, L100.0100, L500.4050, L3300.0700, L500.4100, L800.1280, L3410.2400, L501.9985, L3100.1850, L504.2610, L3300.0100, L3400.0700, L300.3900, L3200.1100, L3000.0375, L503.6030, L3890.6005, L501.6710, L3300.1200, L3100.5450, L503.6550, L501.4700, L503.5510, L3130.0010, L506.1000, L3100.3425 ####[facility] [id number] [facility]. [place], [place], [id number] Absolute Neut 5.4 X10 3/uL Normal 2.0-7.7 [facility] Comment on above: Performed By: #### L 501.9520, L506.0400, L803.2200, L100.0100, L500.4050, L3300.0700, L500.4100, L800.1280, L3410.2400, L501.9985, L3100.1850, L504.2610, L3300.0100, L3400.0700, L300.3900, L3200.1100, L3000.0375, L503.6030, L3890.6005, L501.6710, L3300.1200, L3100.5450, L503.6550, L501.4700, L503.5510, L3130.0010, L506.1000, L3100.3425 ####[facility] Lxmgttdxxf2963 [facility] [place], [place], [phone](887) Basophils/100 WBC (Bld) 0.9 % Normal 0-1 [facility] Comment on above: Performed By: #### L 501.9520, L506.0400, L803.2200, L100.0100, L500.4050, L3300.0700, L500.4100, L800.1280, L3410.2400, L501.9985, L3100.1850, L504.2610, L3300.0100, L3400.0700, L300.3900, L3200.1100, L3000.0375, L503.6030, L3890.6005, L501.6710, L3300.1200, L3100.5450, L503.6550, L501.4700, L503.5510, L3130.0010, L506.1000, L3100.3425 ####[facility] Ksxrngvico62[address] [facility]. [place], [place], [id number] Eosinophils/100 WBC (Bld) 3.3 % Normal 0-5 [facility] Comment on above: Performed By: #### L 501.9520, L506.0400, L803.2200, L100.0100, L500.4050, L3300.0700, L500.4100, L800.1280, L3410.2400, L501.9985, L3100.1850, L504.2610, L3300.0100, L3400.0700, L300.3900, L3200.1100, L3000.0375, L503.6030, L3890.6005, L501.6710, L3300.1200, L3100.5450, L503.6550, L501.4700, L503.5510, L3130.0010, L506.1000, L3100.3425 ####[facility] Fqnskqammh[address] [facility]. [place], [place], [id number] Erythrocyte distribution width (RBC) [Ratio] 15.3 % High 11.6-14.6 [facility] Comment on above: Performed By: #### L 501.9520, L506.0400, L803.2200, L100.0100, L500.4050, L3300.0700, L500.4100, L800.1280, L3410.2400, L501.9985, L3100.1850, L504.2610, L3300.0100, L3400.0700, L300.3900, L3200.1100, L3000.0375, L503.6030, L3890.6005, L501.6710, L3300.1200, L3100.5450, L503.6550, L501.4700, L503.5510, L3130.0010, L506.1000, L3100.3425 ####[facility] Hcbyneexlb9[address] [facility]. [place], [place], [phone] Hematocrit (Bld) [Volume fraction] 37.6 % Normal 37-47 [facility] Comment on above: Performed By: #### L 501.9520, L506.0400, L803.2200, L100.0100, L500.4050, L3300.0700, L500.4100, L800.1280, L3410.2400, L501.9985, L3100.1850, L504.2610, L3300.0100, L3400.0700, L300.3900, L3200.1100, L3000.0375, L503.6030, L3890.6005, L501.6710, L3300.1200, L3100.5450, L503.6550, L501.4700, L503.5510, L3130.0010, L506.1000, L3100.3425 ####[facility] Xgihhxhqha49[address] [facility] [place], [place], [id number] Hemoglobin (Bld) [Mass/Vol] 11.2 g/dL Low 12.0-15.0 [facility] Comment on above: Performed By: #### L 501.9520, L506.0400, L803.2200, L100.0100, L500.4050, L3300.0700, L500.4100, L800.1280, L3410.2400, L501.9985, L3100.1850, L504.2610, L3300.0100, L3400.0700, L300.3900, L3200.1100, L3000.0375, L503.6030, L3890.6005, L501.6710, L3300.1200, L3100.5450, L503.6550, L501.4700, L503.5510, L3130.0010, L506.1000, L3100.3425 ####[facility] Yuxmnztcrz4[address] [facility]. [place], [place], [id number] IG% 1.200 High 0.0-0.9 [facility] Comment on above: Result Comment: IG% - Immature Granulocytes (promyelocytes, myelocytes andmetamyelocytes) > 1% indicates that a LEFT SHIFT is Present. Performed By: #### L 501.9520, L506.0400, L803.2200, L100.0100, L500.4050, L3300.0700, L500.4100, L800.1280, L3410.2400, L501.9985, L3100.1850, L504.2610, L3300.0100, L3400.0700, L300.3900, L3200.1100, L3000.0375, L503.6030, L3890.6005, L501.6710, L3300.1200, L3100.5450, L503.6550, L501.4700, L503.5510, L3130.0010, L506.1000, L3100.3425 ####[facility] Wcopuvljma68[address] [facility] [place], [address] Lymphocytes/100 WBC (Bld) 30.9 % Normal 19-41 [facility] Comment on above: Performed By: #### L 501.9520, L506.0400, L803.2200, L100.0100, L500.4050, L3300.0700, L500.4100, L800.1280, L3410.2400, L501.9985, L3100.1850, L504.2610, L3300.0100, L3400.0700, L300.3900, L3200.1100, L3000.0375, L503.6030, L3890.6005, L501.6710, L3300.1200, L3100.5450, L503.6550, L501.4700, L503.5510, L3130.0010, L506.1000, L3100.3425 ####[facility] Njlquvwwru09[address] [facility] [place], [address] MCH (RBC) [Entitic mass] 24.8 pg Low 27.0-32.0 [facility] Comment on above: Performed By: #### L 501.9520, L506.0400, L803.2200, L100.0100, L500.4050, L3300.0700, L500.4100, L800.1280, L3410.2400, L501.9985, L3100.1850, L504.2610, L3300.0100, L3400.0700, L300.3900, L3200.1100, L3000.0375, L503.6030, L3890.6005, L501.6710, L3300.1200, L3100.5450, L503.6550, L501.4700, L503.5510, L3130.0010, L506.1000, L3100.3425 ####[facility] [address] [place], [address] MCHC (RBC) [Mass/Vol] 29.8 g/dL Low 32-36 [facility] Comment on above: Performed By: #### L 501.9520, L506.0400, L803.2200, L100.0100, L500.4050, L3300.0700, L500.4100, L800.1280, L3410.2400, L501.9985, L3100.1850, L504.2610, L3300.0100, L3400.0700, L300.3900, L3200.1100, L3000.0375, L503.6030, L3890.6005, L501.6710, L3300.1200, L3100.5450, L503.6550, L501.4700, L503.5510, L3130.0010, L506.1000, L3100.3425 ####[facility] [address] [place], [place], [id number] MCV (RBC) [Entitic vol] 83.2 fL Normal 81-99 [facility] Comment on above: Performed By: #### L 501.9520, L506.0400, L803.2200, L100.0100, L500.4050, L3300.0700, L500.4100, L800.1280, L3410.2400, L501.9985, L3100.1850, L504.2610, L3300.0100, L3400.0700, L300.3900, L3200.1100, L3000.0375, L503.6030, L3890.6005, L501.6710, L3300.1200, L3100.5450, L503.6550, L501.4700, L503.5510, L3130.0010, L506.1000, L3100.3425 ####[facility] [address] [place], [place], [phone](433) Monocytes/100 WBC (Bld) 4.4 % Normal 0-10 [facility] Comment on above: Performed By: #### L 501.9520, L506.0400, L803.2200, L100.0100, L500.4050, L3300.0700, L500.4100, L800.1280, L3410.2400, L501.9985, L3100.1850, L504.2610, L3300.0100, L3400.0700, L300.3900, L3200.1100, L3000.0375, L503.6030, L3890.6005, L501.6710, L3300.1200, L3100.5450, L503.6550, L501.4700, L503.5510, L3130.0010, L506.1000, L3100.3425 ####[facility] Dovzoyoeqm60[address] [facility] [place], [place], [id number](815) Neutrophils/100 WBC (Bld) 59.3 % Normal 47-70 [facility] Comment on above: Performed By: #### L 501.9520, L506.0400, L803.2200, L100.0100, L500.4050, L3300.0700, L500.4100, L800.1280, L3410.2400, L501.9985, L3100.1850, L504.2610, L3300.0100, L3400.0700, L300.3900, L3200.1100, L3000.0375, L503.6030, L3890.6005, L501.6710, L3300.1200, L3100.5450, L503.6550, L501.4700, L503.5510, L3130.0010, L506.1000, L3100.3425 ####[facility] Xloioffrpk69[address] [facility] [place], [place], [phone](163) Nucleated RBC (Bld) [#/Vol] 0 10*3/uL Normal 0-5 [facility] Comment on above: Performed By: #### L 501.9520, L506.0400, L803.2200, L100.0100, L500.4050, L3300.0700, L500.4100, L800.1280, L3410.2400, L501.9985, L3100.1850, L504.2610, L3300.0100, L3400.0700, L300.3900, L3200.1100, L3000.0375, L503.6030, L3890.6005, L501.6710, L3300.1200, L3100.5450, L503.6550, L501.4700, L503.5510, L3130.0010, L506.1000, L3100.3425 ####[facility] Cmavrhleur45[address] [facility]. [place], [place], [id number] Platelet mean volume (Bld) [Entitic vol] 10.2 fL Normal 6.2-12.0 [facility] Comment on above: Performed By: #### L 501.9520, L506.0400, L803.2200, L100.0100, L500.4050, L3300.0700, L500.4100, L800.1280, L3410.2400, L501.9985, L3100.1850, L504.2610, L3300.0100, L3400.0700, L300.3900, L3200.1100, L3000.0375, L503.6030, L3890.6005, L501.6710, L3300.1200, L3100.5450, L503.6550, L501.4700, L503.5510, L3130.0010, L506.1000, L3100.3425 ####[facility] Iuwxrdpukx6[address] [facility] [place], [place], [id number] Platelets (Bld) [#/Vol] 271 10*3/uL Normal 150-450 [facility] Comment on above: Performed By: #### L 501.9520, L506.0400, L803.2200, L100.0100, L500.4050, L3300.0700, L500.4100, L800.1280, L3410.2400, L501.9985, L3100.1850, L504.2610, L3300.0100, L3400.0700, L300.3900, L3200.1100, L3000.0375, L503.6030, L3890.6005, L501.6710, L3300.1200, L3100.5450, L503.6550, L501.4700, L503.5510, L3130.0010, L506.1000, L3100.3425 ####[facility] [address]zdn[address] [facility] [address] [place], [place], [id number] RBC (Bld) [#/Vol] 4.52 10*6/uL Normal 4.2-5.4 [facility] Comment on above: Performed By: #### L 501.9520, L506.0400, L803.2200, L100.0100, L500.4050, L3300.0700, L500.4100, L800.1280, L3410.2400, L501.9985, L3100.1850, L504.2610, L3300.0100, L3400.0700, L300.3900, L3200.1100, L3000.0375, L503.6030, L3890.6005, L501.6710, L3300.1200, L3100.5450, L503.6550, L501.4700, L503.5510, L3130.0010, L506.1000, L3100.3425 ####[facility] [address] [place], [place], [address] RDW SD 46.5 fl High 35.1-43.9 [facility] Comment on above: Performed By: #### L 501.9520, L506.0400, L803.2200, L100.0100, L500.4050, L3300.0700, L500.4100, L800.1280, L3410.2400, L501.9985, L3100.1850, L504.2610, L3300.0100, L3400.0700, L300.3900, L3200.1100, L3000.0375, L503.6030, L3890.6005, L501.6710, L3300.1200, L3100.5450, L503.6550, L501.4700, L503.5510, L3130.0010, L506.1000, L3100.3425 ####[facility] Cdghhqtvws58[address] [facility] [place], [place], [id number] WBC (Bld) [#/Vol] 9.1 10*3/uL Normal 4.4-11.0 [facility] Comment on above: Performed By: #### L 501.9520, L506.0400, L803.2200, L100.0100, L500.4050, L3300.0700, L500.4100, L800.1280, L3410.2400, L501.9985, L3100.1850, L504.2610, L3300.0100, L3400.0700, L300.3900, L3200.1100, L3000.0375, L503.6030, L3890.6005, L501.6710, L3300.1200, L3100.5450, L503.6550, L501.4700, L503.5510, L3130.0010, L506.1000, L3100.3425 ####[facility] Upmqykbypn[address] [facility] [place], [place], [address] CRPon 05-09-2024 C-REACTIVE PROT 10.20 mg/L High 0.0-3.0 [facility] Comment on above: Order Comment: N1 Result Comment: C-Re active Protein (CRP) provides useful information for thediagnosis, therapy and monitoring of inflammatory processesand associated diseases. For the evaluation of Relative Riskfor Cardiovascular Disease, a High Sensitivity CRP (HSCRP)should be ordered. Performed By: #### L 501.9520, L506.0400, L803.2200, L100.0100, L500.4050, L3300.0700, L500.4100, L800.1280, L3410.2400, L501.9985, L3100.1850, L504.2610, L3300.0100, L3400.0700, L300.3900, L3200.1100, L3000.0375, L503.6030, L3890.6005, L501.6710, L3300.1200, L3100.5450, L503.6550, L501.4700, L503.5510, L3130.0010, L506.1000, L3100.3425 ####[facility] [address]wzkek9[address] [facility] [place], [address] Comprehensive Met[facility] 05-09-2024 Albumin [Mass/Vol] 3.1 g/dL Low 3.2-5.0 [facility] Comment on above: Order Comment: N1 Performed By: #### L 501.9520, L506.0400, L803.2200, L100.0100, L500.4050, L3300.0700, L500.4100, L800.1280, L3410.2400, L501.9985, L3100.1850, L504.2610, L3300.0100, L3400.0700, L300.3900, L3200.1100, L3000.0375, L503.6030, L3890.6005, L501.6710, L3300.1200, L3100.5450, L503.6550, L501.4700, L503.5510, L3130.0010, L506.1000, L3100.3425 ####[facility] Rhpasevlel04[address] [facility] [place], [place], [id number] Albumin/Globulin [Mass ratio] 0.6 {ratio} Low 0.9-2.4 [facility] Comment on above: Order Comment: N1 Performed By: #### L 501.9520, L506.0400, L803.2200, L100.0100, L500.4050, L3300.0700, L500.4100, L800.1280, L3410.2400, L501.9985, L3100.1850, L504.2610, L3300.0100, L3400.0700, L300.3900, L3200.1100, L3000.0375, L503.6030, L3890.6005, L501.6710, L3300.1200, L3100.5450, L503.6550, L501.4700, L503.5510, L3130.0010, L506.1000, L3100.3425 ####[facility] Ehldiufhny4[address] [facility] [place], [place], [phone] ALK P 154 U/L High 45-117 [facility] Comment on above: Order Comment: N1 Performed By: #### L 501.9520, L506.0400, L803.2200, L100.0100, L500.4050, L3300.0700, L500.4100, L800.1280, L3410.2400, L501.9985, L3100.1850, L504.2610, L3300.0100, L3400.0700, L300.3900, L3200.1100, L3000.0375, L503.6030, L3890.6005, L501.6710, L3300.1200, L3100.5450, L503.6550, L501.4700, L503.5510, L3130.0010, L506.1000, L3100.3425 ####[facility] Nnedkttfno87[address] [facility] [place], [place], [id number] ALT [Catalytic activity/Vol] 36 U/L Normal 13-56 [facility] Comment on above: Order Comment: N1 Performed By: #### L 501.9520, L506.0400, L803.2200, L100.0100, L500.4050, L3300.0700, L500.4100, L800.1280, L3410.2400, L501.9985, L3100.1850, L504.2610, L3300.0100, L3400.0700, L300.3900, L3200.1100, L3000.0375, L503.6030, L3890.6005, L501.6710, L3300.1200, L3100.5450, L503.6550, L501.4700, L503.5510, L3130.0010, L506.1000, L3100.3425 ####[facility] [address], [address] AST [Catalytic activity/Vol] 41 U/L High 15-37 [facility] Comment on above: Order Comment: N1 Performed By: #### L 501.9520, L506.0400, L803.2200, L100.0100, L500.4050, L3300.0700, L500.4100, L800.1280, L3410.2400, L501.9985, L3100.1850, L504.2610, L3300.0100, L3400.0700, L300.3900, L3200.1100, L3000.0375, L503.6030, L3890.6005, L501.6710, L3300.1200, L3100.5450, L503.6550, L501.4700, L503.5510, L3130.0010, L506.1000, L3100.3425 ####[facility] [address] [place], [place], [id number] Bilirubin [Mass/Vol] 0.40 mg/dL Normal 0.20-1.00 [facility] Comment on above: Order Comment: N1 Result Comment: For patients on eltrombopag therapy, use of [place]ension [place] TBIL is not recommended. Performed By: #### L 501.9520, L506.0400, L803.2200, L100.0100, L500.4050, L3300.0700, L500.4100, L800.1280, L3410.2400, L501.9985, L3100.1850, L504.2610, L3300.0100, L3400.0700, L300.3900, L3200.1100, L3000.0375, L503.6030, L3890.6005, L501.6710, L3300.1200, L3100.5450, L503.6550, L501.4700, L503.5510, L3130.0010, L506.1000, L3100.3425 ####[facility] [address] [place], [place], [id number] BUN/CRE 25.7 RATIO High 10-20 [facility] Comment on above: Order Comment: N1 Performed By: #### L 501.9520, L506.0400, L803.2200, L100.0100, L500.4050, L3300.0700, L500.4100, L800.1280, L3410.2400, L501.9985, L3100.1850, L504.2610, L3300.0100, L3400.0700, L300.3900, L3200.1100, L3000.0375, L503.6030, L3890.6005, L501.6710, L3300.1200, L3100.5450, L503.6550, L501.4700, L503.5510, L3130.0010, L506.1000, L3100.3425 ####[facility] [address] [place], [place], [id number] CA,Total 9.8 mg/dL Normal 8.5-10.1 [facility] Comment on above: Order Comment: N1 Performed By: #### L 501.9520, L506.0400, L803.2200, L100.0100, L500.4050, L3300.0700, L500.4100, L800.1280, L3410.2400, L501.9985, L3100.1850, L504.2610, L3300.0100, L3400.0700, L300.3900, L3200.1100, L3000.0375, L503.6030, L3890.6005, L501.6710, L3300.1200, L3100.5450, L503.6550, L501.4700, L503.5510, L3130.0010, L506.1000, L3100.3425 ####[facility] B[address]xftbrv[address] [facility] [place], [place], [id number] Chloride [Moles/Vol] 100 mmol/L Normal 98-107 [facility] Comment on above: Order Comment: N1 Performed By: #### L 501.9520, L506.0400, L803.2200, L100.0100, L500.4050, L3300.0700, L500.4100, L800.1280, L3410.2400, L501.9985, L3100.1850, L504.2610, L3300.0100, L3400.0700, L300.3900, L3200.1100, L3000.0375, L503.6030, L3890.6005, L501.6710, L3300.1200, L3100.5450, L503.6550, L501.4700, L503.5510, L3130.0010, L506.1000, L3100.3425 ####[facility] T[address]fuxonkdh[address] [facility] [place], [place], [address] CO2 [Moles/Vol] 30.0 mmol/L Normal 21.0-32.0 [facility] Comment on above: Order Comment: N1 Performed By: #### L 501.9520, L506.0400, L803.2200, L100.0100, L500.4050, L3300.0700, L500.4100, L800.1280, L3410.2400, L501.9985, L3100.1850, L504.2610, L3300.0100, L3400.0700, L300.3900, L3200.1100, L3000.0375, L503.6030, L3890.6005, L501.6710, L3300.1200, L3100.5450, L503.6550, L501.4700, L503.5510, L3130.0010, L506.1000, L3100.3425 ####[facility] [address] [place], [address] Creatinine [Mass/Vol] 0.86 mg/dL Normal 0.55-1.02 [facility] Comment on above: Order Comment: N1 Result Comment: The validity of the calculated GFR GFRAA in patients over70 years has not been determined. Clinical correlation isessential. Performed By: #### L 501.9520, L506.0400, L803.2200, L100.0100, L500.4050, L3300.0700, L500.4100, L800.1280, L3410.2400, L501.9985, L3100.1850, L504.2610, L3300.0100, L3400.0700, L300.3900, L3200.1100, L3000.0375, L503.6030, L3890.6005, L501.6710, L3300.1200, L3100.5450, L503.6550, L501.4700, L503.5510, L3130.0010, L506.1000, L3100.3425 ####[facility] [address] [place], [place], [id number] EST GFR - AA 88 mL/min Normal >60 [facility] Comment on above: Order Comment: N1 Result Comment: Afri can Taiwanese GFR Calc Performed By: #### L 501.9520, L506.0400, L803.2200, L100.0100, L500.4050, L3300.0700, L500.4100, L800.1280, L3410.2400, L501.9985, L3100.1850, L504.2610, L3300.0100, L3400.0700, L300.3900, L3200.1100, L3000.0375, L503.6030, L3890.6005, L501.6710, L3300.1200, L3100.5450, L503.6550, L501.4700, L503.5510, L3130.0010, L506.1000, L3100.3425 ####[facility] Lychx[address]tybx[address] [facility] [place], [place], [id number] GAP 5 Normal 5-15 [facility] Comment on above: Order Comment: N1 Performed By: #### L 501.9520, L506.0400, L803.2200, L100.0100, L500.4050, L3300.0700, L500.4100, L800.1280, L3410.2400, L501.9985, L3100.1850, L504.2610, L3300.0100, L3400.0700, L300.3900, L3200.1100, L3000.0375, L503.6030, L3890.6005, L501.6710, L3300.1200, L3100.5450, L503.6550, L501.4700, L503.5510, L3130.0010, L506.1000, L3100.3425 ####[facility] Ggnus[address]alsf[address] [facility] [place], [place], [id number] GFR/1.73 sq M.predicted among non-blacks MDRD (S/P/Bld) [Vol rate/Area] 73 mL/min/{1.73_m2} Normal >60 [facility] Comment on above: Order Comment: N1 Result Comment: Non- GFR Calc Performed By: #### L 501.9520, L506.0400, L803.2200, L100.0100, L500.4050, L3300.0700, L500.4100, L800.1280, L3410.2400, L501.9985, L3100.1850, L504.2610, L3300.0100, L3400.0700, L300.3900, L3200.1100, L3000.0375, L503.6030, L3890.6005, L501.6710, L3300.1200, L3100.5450, L503.6550, L501.4700, L503.5510, L3130.0010, L506.1000, L3100.3425 ####[facility] [address] [facility] [address] [place], [place], [id number] Globulin (S) [Mass/Vol] 5.6 g/dL High 2.2-4.2 [facility] Comment on above: Order Comment: N1 Performed By: #### L 501.9520, L506.0400, L803.2200, L100.0100, L500.4050, L3300.0700, L500.4100, L800.1280, L3410.2400, L501.9985, L3100.1850, L504.2610, L3300.0100, L3400.0700, L300.3900, L3200.1100, L3000.0375, L503.6030, L3890.6005, L501.6710, L3300.1200, L3100.5450, L503.6550, L501.4700, L503.5510, L3130.0010, L506.1000, L3100.3425 ####[facility] [address] [facility] [address] [place], [place], [id number] Glucose [Mass/Vol] 239 mg/dL High 74-106 [facility] Comment on above: Order Comment: N1 Result Comment: Gluc ose result greater than or equal to 200 mg/dLsuggests DIABETES MELLITUS per A.D.A. criteria. Performed By: #### L 501.9520, L506.0400, L803.2200, L100.0100, L500.4050, L3300.0700, L500.4100, L800.1280, L3410.2400, L501.9985, L3100.1850, L504.2610, L3300.0100, L3400.0700, L300.3900, L3200.1100, L3000.0375, L503.6030, L3890.6005, L501.6710, L3300.1200, L3100.5450, L503.6550, L501.4700, L503.5510, L3130.0010, L506.1000, L3100.3425 ####[facility] [address] [place], [place], [id number] Potassium [Moles/Vol] 4.5 mmol/L Normal 3.5-5.1 [facility] Comment on above: Order Comment: N1 Performed By: #### L 501.9520, L506.0400, L803.2200, L100.0100, L500.4050, L3300.0700, L500.4100, L800.1280, L3410.2400, L501.9985, L3100.1850, L504.2610, L3300.0100, L3400.0700, L300.3900, L3200.1100, L3000.0375, L503.6030, L3890.6005, L501.6710, L3300.1200, L3100.5450, L503.6550, L501.4700, L503.5510, L3130.0010, L506.1000, L3100.3425 ####[facility] [address] [facility] [address] [place], [place], [id number] Sodium [Moles/Vol] 135 mmol/L Low 136-145 [facility] Comment on above: Order Comment: N1 Performed By: #### L 501.9520, L506.0400, L803.2200, L100.0100, L500.4050, L3300.0700, L500.4100, L800.1280, L3410.2400, L501.9985, L3100.1850, L504.2610, L3300.0100, L3400.0700, L300.3900, L3200.1100, L3000.0375, L503.6030, L3890.6005, L501.6710, L3300.1200, L3100.5450, L503.6550, L501.4700, L503.5510, L3130.0010, L506.1000, L3100.3425 ####[facility] [address] [facility] [place], [place], [id number] T PROT 8.7 g/dL High 6.4-8.2 [facility] Comment on above: Order Comment: N1 Performed By: #### L 501.9520, L506.0400, L803.2200, L100.0100, L500.4050, L3300.0700, L500.4100, L800.1280, L3410.2400, L501.9985, L3100.1850, L504.2610, L3300.0100, L3400.0700, L300.3900, L3200.1100, L3000.0375, L503.6030, L3890.6005, L501.6710, L3300.1200, L3100.5450, L503.6550, L501.4700, L503.5510, L3130.0010, L506.1000, L3100.3425 ####[facility] [address] [facility] [address] [place], [place], [id number] Urea nitrogen [Mass/Vol] 22 mg/dL High 7-18 [facility] Comment on above: Order Comment: N1 Performed By: #### L 501.9520, L506.0400, L803.2200, L100.0100, L500.4050, L3300.0700, L500.4100, L800.1280, L3410.2400, L501.9985, L3100.1850, L504.2610, L3300.0100, L3400.0700, L300.3900, L3200.1100, L3000.0375, L503.6030, L3890.6005, L501.6710, L3300.1200, L3100.5450, L503.6550, L501.4700, L503.5510, L3130.0010, L506.1000, L3100.3425 ####[facility] [address] [facility] [address] [place], [place], [id number] Ferritinon 05-09-2024 Ferritin [Mass/Vol] 42 ng/mL Normal 8-252 [facility] Comment on above: Order Comment: N1 Performed By: #### L 501.9520, L506.0400, L803.2200, L100.0100, L500.4050, L3300.0700, L500.4100, L800.1280, L3410.2400, L501.9985, L3100.1850, L504.2610, L3300.0100, L3400.0700, L300.3900, L3200.1100, L3000.0375, L503.6030, L3890.6005, L501.6710, L3300.1200, L3100.5450, L503.6550, L501.4700, L503.5510, L3130.0010, L506.1000, L3100.3425 ####[facility] [address] [place], [address] Hemoglobin A1con 05-09-2024 HbA1c (Bld) [Mass fraction] 7.2 % High 3.8-5.6 [facility] Comment on above: Result Comment: Norm al < 5.7 % Prediabetic 5.7 - 6.4 % Diabetic >or= 6.5 % Please note range changes. Performed By: #### L 501.9520, L506.0400, L803.2200, L100.0100, L500.4050, L3300.0700, L500.4100, L800.1280, L3410.2400, L501.9985, L3100.1850, L504.2610, L3300.0100, L3400.0700, L300.3900, L3200.1100, L3000.0375, L503.6030, L3890.6005, L501.6710, L3300.1200, L3100.5450, L503.6550, L501.4700, L503.5510, L3130.0010, L506.1000, L3100.3425 ####[facility] [address] [place], [address] Iron+Iron Binding Capacityon 05-09-2024 Iron [Mass/Vol] 40 ug/dL Low 50-170 [facility] Comment on above: Order Comment: N1 Performed By: #### L 501.9520, L506.0400, L803.2200, L100.0100, L500.4050, L3300.0700, L500.4100, L800.1280, L3410.2400, L501.9985, L3100.1850, L504.2610, L3300.0100, L3400.0700, L300.3900, L3200.1100, L3000.0375, L503.6030, L3890.6005, L501.6710, L3300.1200, L3100.5450, L503.6550, L501.4700, L503.5510, L3130.0010, L506.1000, L3100.3425 ####[facility] [address] [place], [address] IRON SATURATION 11.6 Low 15.0-55.0 [facility] Comment on above: Order Comment: N1 Performed By: #### L 501.9520, L506.0400, L803.2200, L100.0100, L500.4050, L3300.0700, L500.4100, L800.1280, L3410.2400, L501.9985, L3100.1850, L504.2610, L3300.0100, L3400.0700, L300.3900, L3200.1100, L3000.0375, L503.6030, L3890.6005, L501.6710, L3300.1200, L3100.5450, L503.6550, L501.4700, L503.5510, L3130.0010, L506.1000, L3100.3425 ####[facility] [address] [place], [address] TIBC 346 ug/dL Normal 250-450 [facility] Comment on above: Order Comment: N1 Performed By: #### L 501.9520, L506.0400, L803.2200, L100.0100, L500.4050, L3300.0700, L500.4100, L800.1280, L3410.2400, L501.9985, L3100.1850, L504.2610, L3300.0100, L3400.0700, L300.3900, L3200.1100, L3000.0375, L503.6030, L3890.6005, L501.6710, L3300.1200, L3100.5450, L503.6550, L501.4700, L503.5510, L3130.0010, L506.1000, L3100.3425 ####[facility] [address] [facility] [place], [place], [id number] LDHon 05-09-2024 LDH 167 U/L Normal 84-246 [facility] Comment on above: Order Comment: N1 Performed By: #### L 501.9520, L506.0400, L803.2200, L100.0100, L500.4050, L3300.0700, L500.4100, L800.1280, L3410.2400, L501.9985, L3100.1850, L504.2610, L3300.0100, L3400.0700, L300.3900, L3200.1100, L3000.0375, L503.6030, L3890.6005, L501.6710, L3300.1200, L3100.5450, L503.6550, L501.4700, L503.5510, L3130.0010, L506.1000, L3100.3425 ####[facility] [address] [facility]. [place], [place], [address] Lipid Profileon 05-09-2024 Cholesterol [Mass/Vol] 181 mg/dL Normal 200 [facility] Comment on above: Order Comment: N1 Result Comment: <200 mg/dL Desirable 200-240 mg/dL Borderline >240 mg/dL High Risk Performed By: #### L 501.9520, L506.0400, L803.2200, L100.0100, L500.4050, L3300.0700, L500.4100, L800.1280, L3410.2400, L501.9985, L3100.1850, L504.2610, L3300.0100, L3400.0700, L300.3900, L3200.1100, L3000.0375, L503.6030, L3890.6005, L501.6710, L3300.1200, L3100.5450, L503.6550, L501.4700, L503.5510, L3130.0010, L506.1000, L3100.3425 ####[facility] [address], [address] Cholesterol in HDL [Mass/Vol] 30 mg/dL Low [facility] Comment on above: Order Comment: N1 Result Comment: The drugs N-Acetylcysteine and Metamizole may falselydepress this assay. Reference Range HDL <40 mg/dL Low HDL Cholesterol HDL >or= 60 mg/dL High HDL Cholesterol Performed By: #### L 501.9520, L506.0400, L803.2200, L100.0100, L500.4050, L3300.0700, L500.4100, L800.1280, L3410.2400, L501.9985, L3100.1850, L504.2610, L3300.0100, L3400.0700, L300.3900, L3200.1100, L3000.0375, L503.6030, L3890.6005, L501.6710, L3300.1200, L3100.5450, L503.6550, L501.4700, L503.5510, L3130.0010, L506.1000, L3100.3425 ####[facility] [address] [place], [address] LDL TNP Normal 0-130 [facility] Comment on above: Order Comment: N1 Performed By: #### L 501.9520, L506.0400, L803.2200, L100.0100, L500.4050, L3300.0700, L500.4100, L800.1280, L3410.2400, L501.9985, L3100.1850, L504.2610, L3300.0100, L3400.0700, L300.3900, L3200.1100, L3000.0375, L503.6030, L3890.6005, L501.6710, L3300.1200, L3100.5450, L503.6550, L501.4700, L503.5510, L3130.0010, L506.1000, L3100.3425 ####[facility] [address] [place], [place], [id number] Triglyceride [Mass/Vol] 526 mg/dL High [facility] Comment on above: Order Comment: N1 Result Comment: The drugs N-Acetylcysteine and Metamizole may falselydepress this assay.TRIGLYCERIDE IS GREATER THAN 400 mg/dL.LDL RESULT IS INVALID AND WILL NOT BE REPORTED.Serum Triglycerides Reference Interval Normal <150 mg/dL Borderline high 150 - 199 mg/dL High 200 - 499 mg/dL Very High > or = 500 mg/dL Performed By: #### L 501.9520, L506.0400, L803.2200, L100.0100, L500.4050, L3300.0700, L500.4100, L800.1280, L3410.2400, L501.9985, L3100.1850, L504.2610, L3300.0100, L3400.0700, L300.3900, L3200.1100, L3000.0375, L503.6030, L3890.6005, L501.6710, L3300.1200, L3100.5450, L503.6550, L501.4700, L503.5510, L3130.0010, L506.1000, L3100.3425 ####[facility] [address] [place], [address] VLDL TNP Normal 5-40 [facility] Comment on above: Order Comment: N1 Performed By: #### L 501.9520, L506.0400, L803.2200, L100.0100, L500.4050, L3300.0700, L500.4100, L800.1280, L3410.2400, L501.9985, L3100.1850, L504.2610, L3300.0100, L3400.0700, L300.3900, L3200.1100, L3000.0375, L503.6030, L3890.6005, L501.6710, L3300.1200, L3100.5450, L503.6550, L501.4700, L503.5510, L3130.0010, L506.1000, L3100.3425 ####[facility] [address] [place], [address] Prothrombin Time w/INRon INR Coag (PPP) [Relative time] 1.0 {INR} Normal [facility] Comment on above: Performed By: #### L 501.9520, L506.0400, L803.2200, L100.0100, L500.4050, L3300.0700, L500.4100, L800.1280, L3410.2400, L501.9985, L3100.1850, L504.2610, L3300.0100, L3400.0700, L300.3900, L3200.1100, L3000.0375, L503.6030, L3890.6005, L501.6710, L3300.1200, L3100.5450, L503.6550, L501.4700, L503.5510, L3130.0010, L506.1000, L3100.3425 ####[facility] [address] [place], [address] PT Coag (PPP) [Time] 13.4 s Normal 11.7-14.9 [facility] Comment on above: Performed By: #### L 501.9520, L506.0400, L803.2200, L100.0100, L500.4050, L3300.0700, L500.4100, L800.1280, L3410.2400, L501.9985, L3100.1850, L504.2610, L3300.0100, L3400.0700, L300.3900, L3200.1100, L3000.0375, L503.6030, L3890.6005, L501.6710, L3300.1200, L3100.5450, L503.6550, L501.4700, L503.5510, L3130.0010, L506.1000, L3100.3425 ####[facility] [address] [facility] [place], [address] T4 Free Directon 05-09-2024 T4 FREE DIRECT 0.78 ng/dL Normal 0.76-1.46 [facility] Comment on above: Order Comment: N1 Performed By: #### L 501.9520, L506.0400, L803.2200, L100.0100, L500.4050, L3300.0700, L500.4100, L800.1280, L3410.2400, L501.9985, L3100.1850, L504.2610, L3300.0100, L3400.0700, L300.3900, L3200.1100, L3000.0375, L503.6030, L3890.6005, L501.6710, L3300.1200, L3100.5450, L503.6550, L501.4700, L503.5510, L3130.0010, L506.1000, L3100.3425 ####[facility] [address] [facility] [place], [address] Thyroid Stim Hormone (TSH)on 05-09-2024 TSH 1.460 uIU/mL Normal 0.358-3.740 [facility] Comment on above: Order Comment: N1 Performed By: #### L 501.9520, L506.0400, L803.2200, L100.0100, L500.4050, L3300.0700, L500.4100, L800.1280, L3410.2400, L501.9985, L3100.1850, L504.2610, L3300.0100, L3400.0700, L300.3900, L3200.1100, L3000.0375, L503.6030, L3890.6005, L501.6710, L3300.1200, L3100.5450, L503.6550, L501.4700, L503.5510, L3130.0010, L506.1000, L3100.3425 ####[facility] [address] [place], [address] CBC AND ELECTRONIC DIFFon Basophils (Bld) [#/Vol] 0.08 10*3/uL 0.00 - 0.15 K/uL [facility] Basophils/100 WBC (Bld) 0.9 % [facility] Differential cell count method Nom (Bld) Electronic Differential [facility] Eosinophils (Bld) [#/Vol] 0.25 10*3/uL 0.00 - 0.42 K/uL [facility] Eosinophils/100 WBC (Bld) 2.8 % [facility] Erythrocyte distribution width (RBC) [Ratio] 15.1 % High 10.8 - 14.9 % [facility] Hematocrit (Bld) [Volume fraction] 36.4 % 34.9 - 44.3 % [facility] Hemoglobin (Bld) [Mass/Vol] 11.2 g/dL Low 11.4 - 15.2 g/dL [facility] Immature granulocytes (Bld) [#/Vol] 0.14 10*3/uL High NINF - 0.08 K/uL [facility] Immature granulocytes/100 WBC (Bld) 1.6 % [facility] Interpretation and review of laboratory results Abnormal [facility] Lymphocytes (Bld) [#/Vol] 2.88 10*3/uL 1.16 - 3.51 K/uL [facility] Lymphocytes/100 WBC (Bld) 32.5 % [facility] MCH (RBC) [Entitic mass] 25.1 pg Low 25.9 - 33.9 pg [facility] MCHC (RBC) [Mass/Vol] 30.8 g/dL Low 31.4 - 35.9 g/dL [facility] MCV (RBC) [Entitic vol] 81.4 fL 79.6 - 97.7 fL [facility] Monocytes (Bld) [#/Vol] 0.54 10*3/uL 0.22 - 0.87 K/uL [facility] Monocytes/100 WBC (Bld) 6.1 % [facility] Neutrophils (Bld) [#/Vol] 4.96 10*3/uL 1.64 - 7.28 K/uL [facility] Nucleated RBC/100 WBC (Bld) [Ratio] 0.0 % NINF [facility] Platelet mean volume (Bld) [Entitic vol] 10.3 fL 8.5 - 12.2 fL [facility] Platelets (Bld) [#/Vol] 282 10*3/uL 150 - 393 K/uL [facility] RBC (Bld) [#/Vol] 4.47 10*6/uL [facility] Segmented neutrophils/100 WBC (Bld) 56.1 % [facility] WBC (Bld) [#/Vol] 8.85 10*3/uL 3.99 - 11. 19 K/uL [facility] Basophils (Bld) [#/Vol] 0.08 10*3/uL Normal 0.00-0.15 [facility] Comment on above: Performed By: #### C MPN, LDO #### [facility] (DEFAULT) [address] [place] [address] Basophils/100 WBC (Bld) 0.9 % Normal [facility] Comment on above: Performed By: #### C MPN, LDO #### [facility] (DEFAULT) [address] [place] [address] DIFF STATUS Electronic Differential Normal [facility] Comment on above: Performed By: #### C MPN, LDO #### [facility] (DEFAULT) [address] [place] [address] Eosinophils (Bld) [#/Vol] 0.25 10*3/uL Normal 0.00-0.42 [facility] Comment on above: Performed By: #### C MPN, LDO #### [facility] (DEFAULT) [address] [place] [address] Eosinophils/100 WBC (Bld) 2.8 % Normal [facility] Comment on above: Performed By: #### C MPN, LDO #### [facility] (DEFAULT) [address] [place] [address] Hematocrit (Bld) [Volume fraction] 36.4 % Normal 34.9-44.3 [facility] Comment on above: Performed By: #### C MPN, LDO #### [facility] (DEFAULT) [address] [place] [address] Hemoglobin (Bld) [Mass/Vol] 11.2 g/dL Low 11.4-15.2 [facility] Comment on above: Performed By: #### C MPN, LDO #### [facility] (DEFAULT) [address] [place] [address] Immature Grans % 1.6 % Normal [facility] Comment on above: Performed By: #### C MPN, LDO #### [facility] (DEFAULT) [address] [place] [address] Immature Grans Absolute 0.14 K/uL High <=0.08 [facility] Comment on above: Performed By: #### C MPN, LDO #### [facility] (DEFAULT) [address] [place] [address] Lymphocytes (Bld) [#/Vol] 2.88 10*3/uL Normal 1.16-3.51 [facility] Comment on above: Performed By: #### C MPN, LDO #### [facility] (DEFAULT) [address] [address] Lymphocytes/100 WBC (Bld) 32.5 % Normal [facility] Comment on above: Performed By: #### C MPN, LDO #### [facility] (DEFAULT) [address] [address] MCV (RBC) [Entitic vol] 81.4 fL Normal 79.6-97.7 [facility] Comment on above: Performed By: #### C MPN, LDO #### [facility] (DEFAULT) [address] [address] Mean Cell Hgb 25.1 pg Low 25.9-33.9 [facility] Comment on above: Performed By: #### C MPN, LDO #### [facility] (DEFAULT) [address] [address] Mean Cell Hgb Conc 30.8 g/dL Low 31.4-35.9 [facility] Comment on above: Performed By: #### C MPN, LDO #### [facility] (DEFAULT) [address] [address] Monocytes (Bld) [#/Vol] 0.54 10*3/uL Normal 0.22-0.87 [facility] Comment on above: Performed By: #### C MPN, LDO #### [facility] (DEFAULT) [address] [address] Monocytes/100 WBC (Bld) 6.1 % Normal [facility] Comment on above: Performed By: #### C MPN, LDO #### [facility] (DEFAULT) [address] [address] Nucleated RBC 0.0 /100 WBC Normal <=0.2 [facility] Comment on above: Performed By: #### C MPN, LDO #### [facility] (DEFAULT) [address] [place] [address] Platelet mean volume (Bld) [Entitic vol] 10.3 fL Normal 8.5-12.2 [facility] Comment on above: Performed By: #### C MPN, LDO #### [facility] (DEFAULT) [address] [place] [address] Platelets (Bld) [#/Vol] 282 10*3/uL Normal 150-393 [facility] Comment on above: Performed By: #### C MPN, LDO #### [facility] (DEFAULT) [address] [place] [address] RBC (Bld) [#/Vol] 4.47 10*6/uL Normal 3.91-5.04 [facility] Comment on above: Performed By: #### C MPN, LDO #### [facility] (DEFAULT) [address] [place] [address] RBC Distribution 15.1 % High 10.8-14.9 [facility] Comment on above: Performed By: #### C MPN, LDO #### [facility] (DEFAULT) [address] [place] [address] Segs + Bands Auto 56.1 % Normal [facility] Comment on above: Performed By: #### C MPN, LDO #### [facility] (DEFAULT) [address] [place] [address] Segs + Bands,Absolute Auto 4.96 K/uL Normal 1.64-7.28 [facility] Comment on above: Performed By: #### C MPN, LDO #### [facility] (DEFAULT) [address] [place] [address] WBC (Bld) [#/Vol] 8.85 10*3/uL Normal 3.99-11.19 [facility] Comment on above: Performed By: #### C MPN, LDO #### [facility] (DEFAULT) [address] [address] CHROMOGRANIN Aon 05-07-2024 Chromogranin A 946 ng/mL High <93 [facility] Comment on above: Result Comment: Impa ired renal or hepatic function or treatment with proton pump inhibitors may result in artifactual elevations of Chromogranin A. ADDITIONAL INFORMATION The testing method is a homogeneous time-resolved immunofluorescent assay manufactured by [employer] and performed on the new test company [employer]. Values obtained with different assay methods or kits may be different and cannot be used interchangeably. Test results cannot be interpreted as absolute evidence for the presence or absence of malignant disease. In some immunoassays, the presence of unusually high concentrations of analyte may result in a high-dose hook effect. This may result in a lower or even normal measured analyte concentration. If the reported result is inconsistent with the clinical presentation, the laboratory should be alerted for troubleshooting. For diagnostic purposes, these immunoassay results should always be assessed in conjunction with the patients medical history, clinical examination and other findings. Test Performed by: [address] [place] [address] Allergy Specialist: Juana Recio Ph.D.; CLIA# [id number] Performed By: #### Y CHGRA #### [facility] (DEFAULT) [address] [address] COMPREHENSIVE METABOLIC PANE [place]akan 05-07-2024 Albumin [Mass/Vol] 3.8 g/dL Normal 3.5-5.0 [facility] Comment on above: Performed By: #### C MPN, LDO #### [facility] (DEFAULT) [address] [address] ALP [Catalytic activity/Vol] 125 U/L Normal 32-126 [facility] Comment on above: Performed By: #### C MPN, LDO #### [facility] (DEFAULT) [address] [place] [address] ALT [Catalytic activity/Vol] 21 U/L Normal 9-48 [facility] Comment on above: Performed By: #### C MPN, LDO #### [facility] (DEFAULT) [address] [place] [address] Anion gap [Moles/Vol] 8 mmol/L Normal 7-17 [facility] Comment on above: Performed By: #### C MPN, LDO #### [facility] (DEFAULT) [address] [place] [address] AST [Catalytic activity/Vol] 22 U/L Normal 10-39 [facility] Comment on above: Performed By: #### C MPN, LDO #### [facility] (DEFAULT) [address] [place] [address] Bilirubin [Mass/Vol] 0.5 mg/dL Normal <1.5 [facility] Comment on above: Performed By: #### C MPN, LDO #### [facility] (DEFAULT) [address] [place] [address] Calcium [Mass/Vol] 9.9 mg/dL Normal 8.6-10.5 [facility] Comment on above: Performed By: #### C MPN, LDO #### [facility] (DEFAULT) [address] [place] [address] Chloride [Moles/Vol] 99 mmol/L Normal 98-108 [facility] Comment on above: Performed By: #### C MPN, LDO #### [facility] (DEFAULT) [address] [place] [address] CO2 [Moles/Vol] 32 mmol/L High 21-31 [facility] Comment on above: Performed By: #### C MPN, LDO #### [facility] (DEFAULT) [address] [place] [address] Creatinine [Mass/Vol] 0.71 mg/dL Normal 0.50-1.20 [facility] Comment on above: Performed By: #### C MPN, LDO #### [facility] (DEFAULT) [address] [place] [address] eGFR, CKD-EPI, Female > Normal >=60 [facility] Comment on above: Result Comment: Repo rted eGFR is based on the CKD-EPI 2020 equation using creatinine, age, and sex. Performed By: #### C MPN, LDO #### [facility] (DEFAULT) [address] [place] [address] Glucose [Mass/Vol] 197 mg/dL High 70-99 [facility] Comment on above: Performed By: #### C MPN, LDO #### [facility] (DEFAULT) [address] [place] [address] Osmolality [Osmolality] 290 mosm/kg Normal 278-305 [facility] Comment on above: Performed By: #### C MPN, LDO #### [facility] (DEFAULT) [address] [place] [address] Potassium [Moles/Vol] 4.6 mmol/L Normal 3.5-5.0 [facility] Comment on above: Performed By: #### C MPN, LDO #### [facility] (DEFAULT) [address] [place] [address] Protein [Mass/Vol] 8.8 g/dL High 6.4-8.3 [facility] Comment on above: Performed By: #### C MPN, LDO #### [facility] (DEFAULT) [address] [place] [address] Sodium [Moles/Vol] 134 mmol/L Low 135-145 [facility] Comment on above: Performed By: #### C MPN, LDO #### [facility] (DEFAULT) [address] [place] [address] Urea nitrogen [Mass/Vol] 16 mg/dL Normal 7-25 [facility] Comment on above: Performed By: #### C MPN, LDO #### [facility] (DEFAULT) [address] [address] Urea nitrogen/Creatinine [Mass ratio] 23 mg/mg Normal [facility] Comment on above: Performed By: #### C MPN, LDO #### [facility] (DEFAULT) [address] [address] GASTRIN - NON-STIMULATEDon 1 Gastrin 591 pg/mL High [facility] Comment on above: Result Comment: REFERENCE VALUE <100 Reference ranges valid for >= 8 hour fast. Test Performed by: [facility] [address] [place] [address] Allergy Specialist: Juana Recio Ph.D.; CLIA# [id number] Performed By: #### P CA #### [facility] (DEFAULT) [address] [address] Laboratory - Chemistry and C hemistry - challengeon 05-07-2024 Albumin [Mass/Vol] 3.8 g/dL 3.5 - 5.0 g/dL [facility] ALP [Catalytic activity/Vol] 125 U/L 32 - 126 U/L [facility] ALT [Catalytic activity/Vol] 21 U/L 9 - 48 U/L [facility] Anion gap [Moles/Vol] 8 mmol/L 7 - 17 mmol/L [facility] AST [Catalytic activity/Vol] 22 U/L 10 - 39 U/L [facility] Bilirubin [Mass/Vol] 0.5 mg/dL NINF - 1.5 mg/dL [facility] Calcium [Mass/Vol] 9.9 mg/dL 8.6 - 10. 5 mg/dL [facility] Chloride [Moles/Vol] 99 mmol/L 98 - 10 8 mmol/L [facility] CO2 [Moles/Vol] 32 mmol/L High 21 - 31 mmol/L [facility] Creatinine [Mass/Vol] 0.71 mg/dL 0.50 - 1.20 mg/dL [facility] Glucose [Mass/Vol] 197 mg/dL High 70 - 99 mg/dL [facility] Osmolality Calc [Osmolality] 290 [facility] Potassium [Moles/Vol] 4.6 mmol/L 3.5 - 5.0 mmol/L [facility] Protein [Mass/Vol] 8.8 g/dL High 6.4 - 8.3 g/dL [facility] Sodium [Moles/Vol] 134 mmol/L Low 135 - 145 mmol/L [facility] Urea nitrogen [Mass/Vol] 16 mg/dL 7 - 25 mg/dL [facility] Urea nitrogen/Creatinine [Mass ratio] 23 mg/mg [facility] No Panel Informationon 05-07 eGFR, CKD-EPI, Female - PINF [facility] Comment on above: Reported eGFR is bas ed on the CKD-EPI 2020 equation using creatinine, age, and sex. Interpretation and review of laboratory results Abnormal [facility] .GFRon 05-05-2024 GFR 95 ml/min/1.73sqm Normal [facility] Comment on above: Result Comment: GFR Population mean for , Non- Americans Ages 20-29 = 116 mL/min/1.73 sq.m. Ages 30-39 = 107 mL/min/1.73 sq.m. Ages 40-49 = 99 mL/min/1.73 sq.m. Ages 50-59 = 93 mL/min/1.73 sq.m. Ages 60-69 = 85 mL/min/1.73 sq.m. Ages 70+ = 75 mL/min/1.73 sq.m. Chronic Kidney Disease: Less than 60 mL/min/1.73 square meters End Stage Renal Disease: Less than 15 mL/min/1.73 square meters Performed By: #### C MP, ADIFF, CBC, PBNP, GFR, ANEU #### [address] [address] GFR Non- 78 ml/min/1.73sqm Normal [facility] Comment on above: Result Comment: GFR Population mean for , Non- Americans Ages 20-29 = 116 mL/min/1.73 sq.m. Ages 30-39 = 107 mL/min/1.73 sq.m. Ages 40-49 = 99 mL/min/1.73 sq.m. Ages 50-59 = 93 mL/min/1.73 sq.m. Ages 60-69 = 85 mL/min/1.73 sq.m. Ages 70+ = 75 mL/min/1.73 sq.m. Chronic Kidney Disease: Less than 60 mL/min/1.73 square meters End Stage Renal Disease: Less than 15 mL/min/1.73 square meters Performed By: #### C MP, ADIFF, CBC, PBNP, GFR, ANEU #### [address] [address] CMPon 05-05-2024 Albumin Level 3.3 G/dL Low 3.5-5.0 [facility] Comment on above: Performed By: #### C MP, ADIFF, CBC, PBNP, GFR, ANEU #### [address] [address] Albumin/Globulin [Mass ratio] 0.7 {ratio} Low 1.1-2.5 [facility] Comment on above: Performed By: #### C MP, ADIFF, CBC, PBNP, GFR, ANEU #### [address] [address] ALP [Catalytic activity/Vol] 172 U/L High 40-135 [facility] Comment on above: Performed By: #### C MP, ADIFF, CBC, PBNP, GFR, ANEU #### [address] [address] ALT [Catalytic activity/Vol] 32 U/L Normal 14-59 [facility] Comment on above: Performed By: #### C MP, ADIFF, CBC, PBNP, GFR, ANEU #### [address] [address] AST [Catalytic activity/Vol] 26 U/L Normal 10-40 [facility] Comment on above: Performed By: #### C MP, ADIFF, CBC, PBNP, GFR, ANEU #### [address] [address] Bili Total 0.4 mg/dL Normal 0.2-1.0 [facility] Comment on above: Result Comment: Use of this assay is not recommended for patients undergoing treatment with eltrombopag due to the potential for falsely elevated results. Performed By: #### C MP, ADIFF, CBC, PBNP, GFR, ANEU #### [address] [address] BUN/Creatinine Ratio 22 ratio Normal 7-[address] [facility] Comment on above: Performed By: #### C MP, ADIFF, CBC, PBNP, GFR, ANEU #### [address] [address] Calcium [Mass/Vol] 9.4 mg/dL Normal 8.4-10.2 [facility] Comment on above: Performed By: #### C MP, ADIFF, CBC, PBNP, GFR, ANEU #### [address] [address] Chloride [Moles/Vol] 99 mmol/L Normal 98-[address] [facility] Comment on above: Performed By: #### C MP, ADIFF, CBC, PBNP, GFR, ANEU #### [address] [address] CO2 [Moles/Vol] 32 mmol/L High 22-29 [facility] Comment on above: Performed By: #### C MP, ADIFF, CBC, PBNP, GFR, ANEU #### [address] [address] Creatinine [Mass/Vol] 0.76 mg/dL Normal 0.55-1.02 [facility] Comment on above: Result Comment: Test ing performed on Siemens Dimension EXL analyzer using a modified kinetic Avila technique. Performed By: #### C MP, ADIFF, CBC, PBNP, GFR, ANEU #### [address] [address] Electrolyte Balance 6.0 mEq/L Normal 4.0-15.0 [facility] Comment on above: Performed By: #### C MP, ADIFF, CBC, PBNP, GFR, ANEU #### [address] [address] Globulin 5.0 G/dL Normal [facility] Comment on above: Performed By: #### C MP, ADIFF, CBC, PBNP, GFR, ANEU #### [address] [address] Glucose [Mass/Vol] 198 mg/dL High 70-105 [facility] Comment on above: Performed By: #### C MP, ADIFF, CBC, PBNP, GFR, ANEU #### [address] [address] Potassium [Moles/Vol] 4.9 mmol/L Normal 3.5-5.1 [facility] Comment on above: Performed By: #### C MP, ADIFF, CBC, PBNP, GFR, ANEU #### [address] [address] Sodium [Moles/Vol] 137 mmol/L Normal 136-145 [facility] Comment on above: Performed By: #### C MP, ADIFF, CBC, PBNP, GFR, ANEU #### [address] [address] Total Protein 8.3 G/dL High 6.4-8.2 [facility] Comment on above: Performed By: #### C MP, ADIFF, CBC, PBNP, GFR, ANEU #### [address] [address] Urea nitrogen [Mass/Vol] 17 mg/dL Normal 7-18 [facility] Comment on above: Performed By: #### C MP, ADIFF, CBC, PBNP, GFR, ANEU #### [address] [address] DLDLon 05-05-2024 Direct LDL Cholesterol 74 mg/dL Normal 0-99 [facility] Comment on above: Result Comment: Dire ct LDL Cholesterol Reference Interval: Optimal: <100 mg/dL Near Optimal/above optimal: 100-129 mg/dL Borderline high: 130-159 mg/dL High: 160-189 mg/dL Very high: >=190 mg/dL Performed By: #### C MP, ADIFF, CBC, PBNP, GFR, ANEU #### [address] [place], [place] [address] LABORATORYOrdered By: SYSTEM SYSTEM on 05-05-2024 Albumin BCP dye [Mass/Vol] 3.3 G/dL Low 3.5 - 5.0 G/dL AO ADM SS Albumin/Globulin [Mass ratio] 0.7 {ratio} Low 1.1 - 2.5 ratio AO ADM SS ALP [Catalytic activity/Vol] 172 U/L High 40 - 135 U/L AO ADM SS ALT With P-5'-P [Catalytic activity/Vol] 32 U/L Normal 14 - 59 U/L AO ADM SS AST With P-5'-P [Catalytic activity/Vol] 26 U/L Normal 10 - 40 U/L AO ADM SS Bilirubin [Mass/Vol] 0.4 mg/dL Normal 0.2 - 1 .0 mg/dL AO ADM SS Comment on above: Interpretive Data: U se of this assay is not recommended for patients undergoing treatment with eltrombopag due to the potential for falsely elevated results. Calcium [Mass/Vol] 9.4 mg/dL Normal 8.4 - 10. 2 mg/dL AO ADM SS Chloride [Moles/Vol] 99 mmol/L Normal 98 - 10 7 mmol/L AO ADM SS CO2 [Moles/Vol] 32 mmol/L High 22 - 29 mmol/L AO ADM SS Creatinine [Mass/Vol] 0.76 mg/dL Normal 0.55 - 1.02 mg/dL AO ADM SS Comment on above: Interpretive Data: T esting performed on Siemens Dimension EXL analyzer using a modified kinetic Avila technique. Electrolyte Balance 6.0 mEq/L Normal 4.0 - 15 .0 mEq/L AO ADM SS GFR/1.73 sq M.predicted among blacks MDRD (S/P/Bld) [Vol rate/Area] 95 ml/min/1.73sqm Invalid Interpretation Code AO Chemistry S Comment on above: Interpretive Data: GFR Population mean for , Non- Americans Ages 20-29 = 116 mL/min/1.73 sq.m. Ages 30-39 = 107 mL/min/1.73 sq.m. Ages 40-49 = 99 mL/min/1.73 sq.m. Ages 50-59 = 93 mL/min/1.73 sq.m. Ages 60-69 = 85 mL/min/1.73 sq.m. Ages 70+ = 75 mL/min/1.73 sq.m. Chronic Kidney Disease: Less than 60 mL/min/1.73 square meters End Stage Renal Disease: Less than 15 mL/min/1.73 square meters GFR/1.73 sq M.predicted among non-blacks MDRD (S/P/Bld) [Vol rate/Area] 78 ml/min/1.73sqm Invalid Interpretation Code AO Chemistry S Comment on above: Interpretive Data: GFR Population mean for , Non- Americans Ages 20-29 = 116 mL/min/1.73 sq.m. Ages 30-39 = 107 mL/min/1.73 sq.m. Ages 40-49 = 99 mL/min/1.73 sq.m. Ages 50-59 = 93 mL/min/1.73 sq.m. Ages 60-69 = 85 mL/min/1.73 sq.m. Ages 70+ = 75 mL/min/1.73 sq.m. Chronic Kidney Disease: Less than 60 mL/min/1.73 square meters End Stage Renal Disease: Less than 15 mL/min/1.73 square meters Globulin 5.0 G/dL Invalid Interpretation Code AO ADM SS Glucose [Mass/Vol] 198 mg/dL High 70 - 105 mg/dL AO ADM SS Potassium [Moles/Vol] 4.9 mmol/L Normal 3.5 - 5.1 mmol/L AO ADM SS Protein [Mass/Vol] 8.3 G/dL High 6.4 - 8.2 G/dL AO ADM SS Sodium [Moles/Vol] 137 mmol/L Normal 136 - 145 mmol/L AO ADM SS Urea nitrogen [Mass/Vol] 17 mg/dL Normal 7 - 18 mg/dL AO ADM SS Urea nitrogen/Creatinine [Mass ratio] 22 ratio Normal 7 - 27 ratio AO [facility] SS LABORATORYOrdered By: Adam Herrera on 05-05-2024 Cholesterol [Mass/Vol] 169 mg/dL Normal 0 - 200 mg/dL AO [facility] Comment on above: Interpretive Data: C holesterol Reference Interval: Less than 200 Desirable 200-239 Borderline high risk 240 and above High risk Cholesterol in HDL [Mass/Vol] 30 mg/dL Low 40 - 60 mg/dL AO ADM SS Cholesterol in LDL [Mass/Vol] 74 mg/dL Normal 0 - 99 mg/dL AO ADM SS Comment on above: Interpretive Data: D irect LDL Cholesterol Reference Interval: Optimal: <100 mg/dL Near Optimal/above optimal: 100-129 mg/dL Borderline high: 130-159 mg/dL High: 160-189 mg/dL Very high: >=190 mg/dL LDL Cholesterol Not Valid Invalid Interpretation Code 0 - 130 AO [facility] Comment on above: Result Comment: Trig lyceride >400 invalidates the calculated LDL. Triglyceride [Mass/Vol] 429 mg/dL High 0 - 150 mg/dL AO [facility] Comment on above: Interpretive Data: T riglyceride Reference Interval: Less than 150 Normal 150-199 Borderline high risk 200-499 High risk 500 or higher Very high risk LIPIDon 05-05-2024 Cholesterol [Mass/Vol] 169 mg/dL Normal 0-200 [facility] Comment on above: Result Comment: Chol esterol Reference Interval: Less than 200 Desirable 200-239 Borderline high risk 240 and above High risk Performed By: #### C MP, ADIFF, CBC, PBNP, GFR, ANEU #### [address] [address] Cholesterol in HDL [Mass/Vol] 30 mg/dL Low 40-60 [facility] Comment on above: Performed By: #### C MP, ADIFF, CBC, PBNP, GFR, ANEU #### [address] [address] LDL Cholesterol Not Valid Normal 0-130 [facility] Comment on above: Result Comment: Trig lyceride >400 invalidates the calculated LDL. Performed By: #### C MP, ADIFF, CBC, PBNP, GFR, ANEU #### [address] [place] [address] Triglyceride [Mass/Vol] 429 mg/dL High 0-150 [facility] Comment on above: Result Comment: Trig lyceride Reference Interval: Less than 150 Normal 150-199 Borderline high risk 200-499 High risk 500 or higher Very high risk Performed By: #### C MP, ADIFF, CBC, PBNP, GFR, ANEU #### [address] [address] CBC W/Diff, Automatedon 03-23 SMEAR COMMENT SCANNED Normal [facility] Comment on above: Result Comment: AUTO DIFF OK Performed By: #### L 100.9950, L503.6550, L500.4050, L503.0105, L503.6030, L100.0100 ####[facility] [address] [place], [place], [id number] Comprehensive Metabolic Prof ilon 04-16-2024 Albumin [Mass/Vol] 3.1 g/dL Low 3.2-5.0 [facility] Comment on above: Performed By: #### L 100.9950, L503.6550, L500.4050, L503.0105, L503.6030, L100.0100 ####[facility] [address] [place], [place], [id number] Albumin/Globulin [Mass ratio] 0.6 {ratio} Low 0.9-2.4 [facility] Comment on above: Performed By: #### L 100.9950, L503.6550, L500.4050, L503.0105, L503.6030, L100.0100 ####[facility] [address] [place], [place], [id number] ALK P 131 U/L High 45-117 [facility] Comment on above: Performed By: #### L 100.9950, L503.6550, L500.4050, L503.0105, L503.6030, L100.0100 ####[facility] [address], [address] ALT [Catalytic activity/Vol] 25 U/L Normal 13-56 [facility] Comment on above: Performed By: #### L 100.9950, L503.6550, L500.4050, L503.0105, L503.6030, L100.0100 ####[facility] [address] [place], [address] AST [Catalytic activity/Vol] 31 U/L Normal 15-37 [facility] Comment on above: Performed By: #### L 100.9950, L503.6550, L500.4050, L503.0105, L503.6030, L100.0100 ####[facility] [address] [place], [address] Bilirubin [Mass/Vol] 0.70 mg/dL Normal 0.20-1.00 [facility] Comment on above: Result Comment: For patients on eltrombopag therapy, use of Dimension [place] TBIL is not recommended. Performed By: #### L 100.9950, L503.6550, L500.4050, L503.0105, L503.6030, L100.0100 ####[facility] [address] [place], [address] BUN/CRE 13.2 RATIO Normal 10-20 [facility] Comment on above: Performed By: #### L 100.9950, L503.6550, L500.4050, L503.0105, L503.6030, L100.0100 ####[facility] [address] [place], [address] CA,Total 9.2 mg/dL Normal 8.5-10.1 [facility] Comment on above: Performed By: #### L 100.9950, L503.6550, L500.4050, L503.0105, L503.6030, L100.0100 ####[facility] [address] [place], [address] Chloride [Moles/Vol] 101 mmol/L Normal 98-107 [facility] Comment on above: Performed By: #### L 100.9950, L503.6550, L500.4050, L503.0105, L503.6030, L100.0100 ####[facility] [address] [place], [address] CO2 [Moles/Vol] 32.0 mmol/L Normal 21.0-32.0 [facility] Comment on above: Performed By: #### L 100.9950, L503.6550, L500.4050, L503.0105, L503.6030, L100.0100 ####[facility] [address] [place], [address] Creatinine [Mass/Vol] 0.76 mg/dL Normal 0.55-1.02 [facility] Comment on above: Result Comment: The validity of the calculated GFR GFRAA in patients over70 years has not been determined. Clinical correlation isessential. Performed By: #### L 100.9950, L503.6550, L500.4050, L503.0105, L503.6030, L100.0100 ####[facility] [address] [place], [address] EST GFR - AA 102 mL/min Normal >60 [facility] Comment on above: Result Comment: Afri can Taiwanese GFR Calc Performed By: #### L 100.9950, L503.6550, L500.4050, L503.0105, L503.6030, L100.0100 ####[facility] [address] [place], [address] GAP 4 Low 5-15 [facility] Comment on above: Performed By: #### L 100.9950, L503.6550, L500.4050, L503.0105, L503.6030, L100.0100 ####[facility] [address] [place], [address] GFR/1.73 sq M.predicted among non-blacks MDRD (S/P/Bld) [Vol rate/Area] 84 mL/min/{1.73_m2} Normal >60 [facility] Comment on above: Result Comment: Non- GFR Calc Performed By: #### L 100.9950, L503.6550, L500.4050, L503.0105, L503.6030, L100.0100 ####[facility] [address] [place], [address] Globulin (S) [Mass/Vol] 5.2 g/dL High 2.2-4.2 [facility] Comment on above: Performed By: #### L 100.9950, L503.6550, L500.4050, L503.0105, L503.6030, L100.0100 ####[facility] [address] [place], [address] Glucose [Mass/Vol] 140 mg/dL High 74-106 [facility] Comment on above: Result Comment: Fast ing Glucose result greater than or equal to 126 mg/dLsuggests DIABETES MELLITUS per A.D.A. criteria. Performed By: #### L 100.9950, L503.6550, L500.4050, L503.0105, L503.6030, L100.0100 ####[facility] [address] [place], [address] Potassium [Moles/Vol] 4.2 mmol/L Normal 3.5-5.1 [facility] Comment on above: Performed By: #### L 100.9950, L503.6550, L500.4050, L503.0105, L503.6030, L100.0100 ####[facility] [address] [place], [address] Sodium [Moles/Vol] 137 mmol/L Normal 136-145 [facility] Comment on above: Performed By: #### L 100.9950, L503.6550, L500.4050, L503.0105, L503.6030, L100.0100 ####[facility] [address] [place], [address] T PROT 8.3 g/dL High 6.4-8.2 [facility] Comment on above: Performed By: #### L 100.9950, L503.6550, L500.4050, L503.0105, L503.6030, L100.0100 ####[facility] [address] [place], [address] Urea nitrogen [Mass/Vol] 10 mg/dL Normal 7-18 [facility] Comment on above: Performed By: #### L 100.9950, L503.6550, L500.4050, L503.0105, L503.6030, L100.0100 ####[facility] [address] [place], [address] Ferritinon 04-16-2024 Ferritin [Mass/Vol] 40 ng/mL Normal 8-252 [facility] Comment on above: Performed By: #### L 100.9950, L503.6550, L500.4050, L503.0105, L503.6030, L100.0100 ####[facility] [address] [place], [address] Iron+Iron Binding Capacityon 04-16-2024 Iron [Mass/Vol] 32 ug/dL Low 50-170 [facility] Comment on above: Performed By: #### L 100.9950, L503.6550, L500.4050, L503.0105, L503.6030, L100.0100 ####[facility] [address] [place], [address] IRON SATURATION 9.3 Low 15.0-55.0 [facility] Comment on above: Performed By: #### L 100.9950, L503.6550, L500.4050, L503.0105, L503.6030, L100.0100 ####[facility] [address] [place], [address] TIBC 345 ug/dL Normal 250-450 [facility] Comment on above: Performed By: #### L 100.9950, L503.6550, L500.4050, L503.0105, L503.6030, L100.0100 ####[facility] [address] [place], [place], [id number] Oncology Visit Reporton 03-[address] [facility] Orthopedic Visit Reporton Orthopedic Visit Report Normal [facility] Retic Panelon 04-16-2024 IM RET FRACTION 21.00 High 3.00-15.90 [facility] Comment on above: Performed By: #### L 100.9950, L503.6550, L500.4050, L503.0105, L503.6030, L100.0100 ####[facility] [address] [place], [place], [id number] RET-HE 24.6 pg Low 30-35 [facility] Comment on above: Performed By: #### L 100.9950, L503.6550, L500.4050, L503.0105, L503.6030, L100.0100 ####[facility] [address] [place], [place], [id number] Retic Count 4.20 High 0.5-1.5 [facility] Comment on above: Performed By: #### L 100.9950, L503.6550, L500.4050, L503.0105, L503.6030, L100.0100 ####[facility] [address] [place], [address] Vitamin B12on 04-16-2024 Cobalamin (Vitamin B12) [Mass/Vol] 259 pg/mL Normal 211-911 [facility] Comment on above: Performed By: #### L 100.9950, L503.6550, L500.4050, L503.0105, L503.6030, L100.0100 ####[facility] [address], [address] Gastroenterology Visit Repor ton 04-14-2024 Gastroenterology Visit Report Normal [facility] .Auto Diffon 04-13-2024 Basophil, Absolute 0.0 10 3/mcL Normal 0.0-0.[address] [facility] Comment on above: Performed By: #### C MP, ADIFF, CBC, PBNP, GFR, ANEU #### [address] [address] Basophils/100 WBC (Bld) 0.5 % Normal 0.0-2.5 [facility] Comment on above: Performed By: #### C MP, ADIFF, CBC, PBNP, GFR, ANEU #### [address] [address] Eosinophil, Absolute 0.1 10 3/mcL Normal 0.0-0.7 [facility] Comment on above: Performed By: #### C MP, ADIFF, CBC, PBNP, GFR, ANEU #### [address] [address] Eosinophils/100 WBC (Bld) 1.7 % Normal 0.0-7.0 [facility] Comment on above: Performed By: #### C MP, ADIFF, CBC, PBNP, GFR, ANEU #### [address] [address] Lymphocyte, Absolute 1.9 10 3/mcL Normal 0.9-4.3 [facility] Comment on above: Performed By: #### C MP, ADIFF, CBC, PBNP, GFR, ANEU #### [address] [address] Lymphocytes/100 WBC (Bld) 24.9 % Normal 20.0-40.0 [facility] Comment on above: Performed By: #### C MP, ADIFF, CBC, PBNP, GFR, ANEU #### [address] [address] Monocyte, Absolute 0.4 10 3/mcL Normal 0.1-1.[address] [facility] Comment on above: Performed By: #### C MP, ADIFF, CBC, PBNP, GFR, ANEU #### [address] [address] Monocytes/100 WBC (Bld) 5.4 % Normal 2.0-13.0 [facility] Comment on above: Performed By: #### C MP, ADIFF, CBC, PBNP, GFR, ANEU #### [address] [address] Neutrophils/100 WBC (Bld) 67.5 % Normal 50.0-75.0 [facility] Comment on above: Performed By: #### C MP, ADIFF, CBC, PBNP, GFR, ANEU #### [address] [address] .NEUABSon 04-13-2024 Neutrophil, Absolute 5.2 10 3/mcL Normal 2.3-8.1 [facility] Comment on above: Performed By: #### C MP, ADIFF, CBC, PBNP, GFR, ANEU #### [address] [address] CBCon 04-13-2024 Erythrocyte distribution width (RBC) [Ratio] 17.4 % High 11.5-15.5 [facility] Comment on above: Performed By: #### C MP, ADIFF, CBC, PBNP, GFR, ANEU #### [address] [address] Hematocrit (Bld) [Volume fraction] 31.6 % Low 34.0-46.0 [facility] Comment on above: Performed By: #### C MP, ADIFF, CBC, PBNP, GFR, ANEU #### [address] [address] Hgb 9.9 G/dL Low 12.0-16.0 [facility] Comment on above: Performed By: #### C MP, ADIFF, CBC, PBNP, GFR, ANEU #### [place] [address] MCH (RBC) [Entitic mass] 26.4 pg Low 27.0-33.0 [facility] Comment on above: Performed By: #### C MP, ADIFF, CBC, PBNP, GFR, ANEU #### [place] [address] MCHC 31.3 G/dL Low 32.0-36.0 [facility] Comment on above: Performed By: #### C MP, ADIFF, CBC, PBNP, GFR, ANEU #### [place] [address] MCV (RBC) [Entitic vol] 84.3 fL Normal 80.0-99.0 [facility] Comment on above: Performed By: #### C MP, ADIFF, CBC, PBNP, GFR, ANEU #### [place] [address] Platelet 284 10 3/mcL Normal 150-450 [facility] Comment on above: Performed By: #### C MP, ADIFF, CBC, PBNP, GFR, ANEU #### [place] [address] Platelet mean volume (Bld) [Entitic vol] 7.5 fL Normal 6.6-10.5 [facility] Comment on above: Performed By: #### C MP, ADIFF, CBC, PBNP, GFR, ANEU #### [place] [address] RBC 3.75 10 6/mcL Low 4.10-5.30 [facility] Comment on above: Performed By: #### C MP, ADIFF, CBC, PBNP, GFR, ANEU #### [facility] [address] [place], [place] [address] WBC 7.6 10 3/mcL Normal 4.5-10.8 [facility] Comment on above: Performed By: #### C MP, ADIFF, CBC, PBNP, GFR, ANEU #### [facility] [address] [place], [place] [address] LABORATORYOrdered By: SYSTEM SYSTEM on 04-13-2024 Natriuretic peptide.B prohormone N-Terminal [Mass/Vol] 211 pg/mL High 0 - 125 pg/mL AO ADM SS Comment on above: Interpretive Data: N T-proBNP results of less than 300 pg/mL effectively rules out acute congestive heart failure with 99% negative predictive value. Basophils (Bld) [#/Vol] 0.0 103/mcL Normal 0.0 - 0.2 10^3/mcL AO Workflow SS Basophils/100 WBC (Bld) 0.5 % Normal 0.0 - 2.5 % AO Workflow SS Eosinophil, Absolute 0.1 103/mcL Normal 0.0 - 0 .7 10^3/mcL AO Workflow SS Eosinophils/100 WBC (Bld) 1.7 % Normal 0.0 - 7.0 % AO Workflow SS Erythrocyte distribution width (RBC) [Ratio] 17.4 % High 11.5 - 15.5 % AO Workflow SS Hematocrit (Bld) [Volume fraction] 31.6 % Low 34.0 - 46.0 % AO Workflow SS Hemoglobin (Bld) [Mass/Vol] 9.9 G/dL Low 12.0 - 16.0 G/dL AO Workflow SS Lymphocytes (Bld) [#/Vol] 1.9 103/mcL Normal 0.9 - 4.3 10^3/mcL AO Workflow SS Lymphocytes/100 WBC (Bld) 24.9 % Normal 20.0 - 40.0 % AO Workflow SS MCH (RBC) [Entitic mass] 26.4 pg Low 27.0 - 33.0 pg AO Workflow SS MCHC 31.3 G/dL Low 32.0 - 36.0 G/dL AO Workflow SS MCV (RBC) [Entitic vol] 84.3 fL Normal 80.0 - 99.0 fL AO Workflow SS Monocytes (Bld) [#/Vol] 0.4 103/mcL Normal 0.1 - 1.4 10^3/mcL AO Workflow SS Monocytes/100 WBC (Bld) 5.4 % Normal 2.0 - 13.0 % AO Workflow SS Neutrophils (Bld) [#/Vol] 5.2 103/mcL Normal 2.3 - 8.1 10^3/mcL AO Workflow SS Neutrophils/100 WBC (Bld) 67.5 % Normal 50.0 - 75.0 % AO Workflow SS Platelet mean volume (Bld) [Entitic vol] 7.5 fL Normal 6.6 - 10.5 fL AO Workflow SS Platelets (Bld) [#/Vol] 284 103/mcL Normal 150 - 450 10^3/mcL AO Workflow SS RBC (Bld) [#/Vol] 3.75 106/mcL Low 4.10 - 5.3 0 10^6/mcL AO Workflow SS WBC (Bld) [#/Vol] 7.6 103/mcL Normal 4.5 - 10.8 10^3/mcL AO Workflow SS PBNPon 04-13-2024 Natriuretic peptide B (Bld) [Mass/Vol] 211 pg/mL High 0-125 [facility] Comment on above: Result Comment: NT-p roBNP results of less than 300 pg/mL effectively rules out acute congestive heart failure with 99% negative predictive value. Performed By: #### P BNP #### [address] [address] Bedside Glucoseon 04-07-2024 FINGERSTICK GLU 222 mg/dL High 74-106 [facility] Comment on above: Result Comment: ESPERANZA GEMENT OF PATIENT CARE PER NURSING PROTOCOL Performed By: #### L 501.080 ####[facility] [address] [place], [address] FINGERSTICK GLU 237 mg/dL High 74-106 [facility] Comment on above: Result Comment: ESPERANZA GEMENT OF PATIENT CARE PER NURSING PROTOCOL Performed By: #### L 501.080 ####[facility] [address] [place], [address] Discharge Instructionon 03-[address] [facility] Bedside Glucoseon 04-06-2024 FINGERSTICK GLU 252 mg/dL High 74-106 [facility] Comment on above: Result Comment: ESPERANZA GEMENT OF PATIENT CARE PER NURSING PROTOCOL Performed By: #### L 501.080 ####[facility] [address] [place], [address] FINGERSTICK GLU 216 mg/dL High 74-106 [facility] Comment on above: Result Comment: ESPERANZA GEMENT OF PATIENT CARE PER NURSING PROTOCOL Performed By: #### L 501.080 ####[facility] [address] [place], [address] FINGERSTICK GLU 285 mg/dL High 74-106 [facility] Comment on above: Result Comment: ESPERANZA GEMENT OF PATIENT CARE PER NURSING PROTOCOL Performed By: #### L 501.080 ####[facility] [address] [place], [address] FINGERSTICK GLU 219 mg/dL High 74-106 [facility] Comment on above: Result Comment: ESPERANZA GEMENT OF PATIENT CARE PER NURSING PROTOCOL Performed By: #### L 501.080 ####[facility] [address] [place], [address] CBC W/Diff, Automatedon 03-22 PATH REV Reviewed Normal [facility] Comment on above: Result Comment: Neut rophilic left shift.Normocytic anemia.Clinical correlation necessary.Nate Carolina M.D. 04/06/24 AMENDED REPORT 04/06/24923 PATH REV previously reported as: November Performed By: #### L 501.4020, L501.2450, L100.0100, L500.4050 ####[facility] [address] [place], [address] CBC-Complete Blood Cnt No Di ffon 04-06-2024 Erythrocyte distribution width (RBC) [Ratio] 19.0 % High 11.6-14.6 [facility] Comment on above: Performed By: #### L 100.0500 ####[facility] [address] [place], [address] Hematocrit (Bld) [Volume fraction] 29.1 % Low 37-47 [facility] Comment on above: Performed By: #### L 100.0500 ####[facility] [address] [place], [address] Hemoglobin (Bld) [Mass/Vol] 8.7 g/dL Low 12.0-15.0 [facility] Comment on above: Performed By: #### L 100.0500 ####[facility] [address] [place], [address] MCH (RBC) [Entitic mass] 27.0 pg Normal 27.0-32.0 [facility] Comment on above: Performed By: #### L 100.0500 ####[facility] [address] [place], [address] MCHC (RBC) [Mass/Vol] 29.9 g/dL Low 32-36 [facility] Comment on above: Performed By: #### L 100.0500 ####[facility] [address] [place], [address] MCV (RBC) [Entitic vol] 90.4 fL Normal 81-99 [facility] Comment on above: Performed By: #### L 100.0500 ####[facility] [address] [place], [address] Platelet mean volume (Bld) [Entitic vol] 9.6 fL Normal 6.2-12.0 [facility] Comment on above: Performed By: #### L 100.0500 ####[facility] [address] [place], [address] Platelets (Bld) [#/Vol] 227 10*3/uL Normal 150-450 [facility] Comment on above: Performed By: #### L 100.0500 ####[facility] [address] [place], [address] RBC (Bld) [#/Vol] 3.22 10*6/uL Low 4.2-5.4 [facility] Comment on above: Performed By: #### L 100.0500 ####[facility] [address] [place], [address] RDW SD 61.0 fl High 35.1-43.9 [facility] Comment on above: Performed By: #### L 100.0500 ####[facility] [address] [place], [address] WBC (Bld) [#/Vol] 9.4 10*3/uL Normal 4.4-11.0 [facility] Comment on above: Performed By: #### L 100.0500 ####[facility] [address] [place], [address] MR/PN.GIon 04-06-2024 MR/PN.GI Normal [facility] Bedside Glucoseon 04-05-2024 FINGERSTICK GLU 235 mg/dL High 74-106 [facility] Comment on above: Result Comment: ESPERANZA GEMENT OF PATIENT CARE PER NURSING PROTOCOL Performed By: #### L 501.080 ####[facility] [address] [place], [address] FINGERSTICK GLU 168 mg/dL High 74-106 [facility] Comment on above: Result Comment: ESPERANZA GEMENT OF PATIENT CARE PER NURSING PROTOCOL Performed By: #### L 501.080 ####[facility] [address] [place], [address] FINGERSTICK GLU 186 mg/dL High 74-106 [facility] Comment on above: Result Comment: ESPERANZA GEMENT OF PATIENT CARE PER NURSING PROTOCOL Performed By: #### L 501.080 ####[facility] [address] [place], [address] FINGERSTICK GLU 180 mg/dL High 74-106 [facility] Comment on above: Result Comment: ESPERANZA VILLALTA OF PATIENT CARE PER NURSING PROTOCOL Performed By: #### L 501.080 ####[facility] [address] [place], [address] CBC-Complete Blood Cnt No Di ffon 04-05-2024 Erythrocyte distribution width (RBC) [Ratio] 19.4 % High 11.6-14.6 [facility] Comment on above: Performed By: #### L 100.0500 ####[facility] [address] [place], [address] Hematocrit (Bld) [Volume fraction] 28.5 % Low 37-47 [facility] Comment on above: Performed By: #### L 100.0500 ####[facility] [address] [place], [address] Hemoglobin (Bld) [Mass/Vol] 8.5 g/dL Low 12.0-15.0 [facility] Comment on above: Performed By: #### L 100.0500 ####[facility] [address] [place], [address] MCH (RBC) [Entitic mass] 27.2 pg Normal 27.0-32.0 [facility] Comment on above: Performed By: #### L 100.0500 ####[facility] [address] [place], [address] MCHC (RBC) [Mass/Vol] 29.8 g/dL Low 32-36 [facility] Comment on above: Performed By: #### L 100.0500 ####[facility] [address] [place], [address] MCV (RBC) [Entitic vol] 91.1 fL Normal 81-99 [facility] Comment on above: Performed By: #### L 100.0500 ####[facility] [address] [place], [address] Platelet mean volume (Bld) [Entitic vol] 9.9 fL Normal 6.2-12.0 [facility] Comment on above: Performed By: #### L 100.0500 ####[facility] [address] [place], [address] Platelets (Bld) [#/Vol] 213 10*3/uL Normal 150-450 [facility] Comment on above: Performed By: #### L 100.0500 ####[facility] [address] [place], [address] RBC (Bld) [#/Vol] 3.13 10*6/uL Low 4.2-5.4 [facility] Comment on above: Performed By: #### L 100.0500 ####[facility] [address] [place], [address] RDW SD 61.2 fl High 35.1-43.9 [facility] Comment on above: Performed By: #### L 100.0500 ####[facility] [address] [place], [address] WBC (Bld) [#/Vol] 8.1 10*3/uL Normal 4.4-11.0 [facility] Comment on above: Performed By: #### L 100.0500 ####[facility] [address] [place], [address] Basic Metabolic Profile (BMP )on 04-04-2024 BUN/CRE 23.7 RATIO High 10-20 [facility] Comment on above: Performed By: #### L 500.2500, L100.0100 ####[facility] [address] [place], [address] CA,Total 8.8 mg/dL Normal 8.5-10.1 [facility] Comment on above: Performed By: #### L 500.2500, L100.0100 ####[facility] [address] [place], [address] Chloride [Moles/Vol] 104 mmol/L Normal 98-107 [facility] Comment on above: Performed By: #### L 500.2500, L100.0100 ####[facility] [address] [place], [address] CO2 [Moles/Vol] 28.0 mmol/L Normal 21.0-32.0 [facility] Comment on above: Performed By: #### L 500.2500, L100.0100 ####[facility] [address] [place], [address] Creatinine [Mass/Vol] 0.63 mg/dL Normal 0.55-1.02 [facility] Comment on above: Result Comment: The validity of the calculated GFR GFRAA in patients over70 years has not been determined. Clinical correlation isessential. Performed By: #### L 500.2500, L100.0100 ####[facility] [address] [place], [address] ECRCL 113.97 ml/min Normal [facility] Comment on above: Performed By: #### L 500.2500, L100.0100 ####[facility] [address] [place], [address] EST GFR - AA 125 mL/min Normal >60 [facility] Comment on above: Result Comment: Afri can Taiwanese GFR Calc Performed By: #### L 500.2500, L100.0100 ####[facility] [address] [place], [address] GAP 4 Low 5-15 [facility] Comment on above: Performed By: #### L 500.2500, L100.0100 ####[facility] [address] [place], [address] GFR/1.73 sq M.predicted among non-blacks MDRD (S/P/Bld) [Vol rate/Area] 103 mL/min/{1.73_m2} Normal >60 [facility] Comment on above: Result Comment: Non- GFR Calc Performed By: #### L 500.2500, L100.0100 ####[facility] [address] [place], [address] Glucose [Mass/Vol] 217 mg/dL High 74-106 [facility] Comment on above: Result Comment: Gluc ose result greater than or equal to 200 mg/dLsuggests DIABETES MELLITUS per A.D.A. criteria. Performed By: #### L 500.2500, L100.0100 ####[facility] [address] [place], [address] Potassium [Moles/Vol] 4.1 mmol/L Normal 3.5-5.1 [facility] Comment on above: Performed By: #### L 500.2500, L100.0100 ####[facility] [address] [place], [address] Sodium [Moles/Vol] 136 mmol/L Normal 136-145 [facility] Comment on above: Performed By: #### L 500.2500, L100.0100 ####[facility] [address] [place], [address] Urea nitrogen [Mass/Vol] 15 mg/dL Normal 7-18 [facility] Comment on above: Performed By: #### L 500.2500, L100.0100 ####[facility] [address] [place], [address] Bedside Glucoseon 04-04-2024 FINGERSTICK GLU 186 mg/dL High 74-106 [facility] Comment on above: Result Comment: ESPERANZA VILLALTA OF PATIENT CARE PER NURSING PROTOCOL Performed By: #### L 501.080 ####[facility] [address] [place], [address] FINGERSTICK GLU 248 mg/dL High 74-106 [facility] Comment on above: Result Comment: ESPERANZA GEMENT OF PATIENT CARE PER NURSING PROTOCOL Performed By: #### L 501.080 ####[facility] [address] [place], [address] FINGERSTICK GLU 199 mg/dL High 74-106 [facility] Comment on above: Result Comment: ESPERANZA GEMENT OF PATIENT CARE PER NURSING PROTOCOL Performed By: #### L 501.080 ####[facility] [address] [place], [address] FINGERSTICK GLU 214 mg/dL High -106 [facility] Comment on above: Result Comment: ESPERANZA GEMENT OF PATIENT CARE PER NURSING PROTOCOL Performed By: #### L 501.080 ####[facility] [address] [place], [address] FINGERSTICK GLU 184 mg/dL High [facility] Comment on above: Result Comment: ESPERANZA GEMENT OF PATIENT CARE PER NURSING PROTOCOL Performed By: #### L 501.080 ####[facility] [address] [place], [address] CBC W/Diff, Automatedon 09-1 Absolute Lymph 1.26 X10 3/uL Normal 0.83-4.51 [facility] Comment on above: Performed By: #### L 500.2500, L100.0100 ####[facility] [address] [place], [address] Absolute Neut 5.9 X10 3/uL Normal 2.0-7.7 [facility] Comment on above: Performed By: #### L 500.2500, L100.0100 ####[facility] [address] [place], [address] PLT MORPH LARGE Normal [facility] Comment on above: Performed By: #### L 500.2500, L100.0100 ####[facility] [address] [place], [address] SMEAR COMMENT SCANNED Normal [facility] Comment on above: Result Comment: LEFT SHIFT: BANDS PRESENT 1+ Performed By: #### L 500.2500, L100.0100 ####[facility] [address] [place], [address] BAND 27 High 0-5 [facility] Comment on above: Performed By: #### L 500.2500, L100.0100 ####[facility] [address] [place], [address] Lymphocytes (Bld) [#/Vol] 17 10*3/uL Low 19-41 [facility] Comment on above: Performed By: #### L 500.2500, L100.0100 ####[facility] [address] [place], [address] MONOCYTE 3 Normal 0-10 [facility] Comment on above: Performed By: #### L 500.2500, L100.0100 ####[facility] [address] [place], [address] SEGS 53 Normal 47-70 [facility] Comment on above: Performed By: #### L 500.2500, L100.0100 ####[facility] [address] [place], [address] TOTAL CELLS 100 Normal MANUAL DIFF [facility] Comment on above: Performed By: #### L 500.2500, L100.0100 ####[facility] [address] [place], [address] EGD Reporton 04-04-2024 EGD Report Normal [facility] MR/CON.PCM.GIon 04-04-2024 MR/CON.PCM.GI Normal [facility] MR/POSTOP.ANEon 04-04-2024 MR/POSTOP.ANE Normal [facility] MR/[id number] 04-04-2024 MR/POSTOPAN2 Normal [facility] NSE (add)on 04-04-2024 NSE (add) Normal [facility] Comment on above: Performed By: #### P NSE. ####[facility] [address] [place], [address] Surgery Specimen Level Aicha 04-04-2024 Surgery Specimen Level IV Normal [facility] Comment on above: Performed By: #### P SUIV ####[facility] [address] [place], [address] Urine Cultureon 04-04-2024 URC Mixed Gram Positive Organisms Austin Count 1000-10,000 MIXC Mixed contaminants. Submit a new specimen if indicated. Normal [facility] Comment on above: Performed By: #### M 100.2200 ####[facility] [address] [place], [address] 12 Lead EKGon 04-03-2024 12 Lead EKG Normal [facility] Abdomen/Pelvis W IV Cont ONL Yon 04-03-2024 Abdomen/Pelvis W IV Cont ONLY Normal [facility] BNP,B-Type NATRIURETIC PEPTI Lucila 04-03-2024 Natriuretic peptide B (Bld) [Mass/Vol] 45.5 pg/mL Normal 0-100 [facility] Comment on above: Performed By: #### L 503.6686 ####[facility] [address] [place], [address] BRCon 04-03-2024 RC Normal [facility] Comment on above: Result Comment: [id number] ON RC TRANSFUSED 04/03/24 [id number] ON RC TRANSFUSED 04/04/24 [id number] ON RC NOT AVAILABLE Performed By: #### B TS, BRC ####[facility] [address] [place], [address] CTA Chest W/WO Contraston CTA Chest W/WO Contrast Normal [facility] Comprehensive Metabolic Prof ilon 04-03-2024 Albumin [Mass/Vol] 2.4 g/dL Low 3.2-5.0 [facility] Comment on above: Order Comment: 'TROP ' Serial specimen #1, #2 or #3: 1 Performed By: #### L 501.4020, L501.2450, L100.0100, L500.4050 ####[facility] [address] [place], [address] Albumin/Globulin [Mass ratio] 0.5 {ratio} Low 0.9-2.4 [facility] Comment on above: Order Comment: 'TROP ' Serial specimen #1, #2 or #3: 1 Performed By: #### L 501.4020, L501.2450, L100.0100, L500.4050 ####[facility] [address] [place], [address] ALK P 176 U/L High 45-117 [facility] Comment on above: Order Comment: 'TROP ' Serial specimen #1, #2 or #3: 1 Performed By: #### L 501.4020, L501.2450, L100.0100, L500.4050 ####[facility] [address] [place], [address] ALT [Catalytic activity/Vol] 18 U/L Normal 13-56 [facility] Comment on above: Order Comment: 'TROP ' Serial specimen #1, #2 or #3: 1 Performed By: #### L 501.4020, L501.2450, L100.0100, L500.4050 ####[facility] [address] [place], [address] AST [Catalytic activity/Vol] 17 U/L Normal 15-37 [facility] Comment on above: Order Comment: 'TROP ' Serial specimen #1, #2 or #3: 1 Performed By: #### L 501.4020, L501.2450, L100.0100, L500.4050 ####[facility] [address] [place], [address] Bilirubin [Mass/Vol] 0.50 mg/dL Normal 0.20-1.00 [facility] Comment on above: Order Comment: 'TROP ' Serial specimen #1, #2 or #3: 1 Result Comment: For patients on eltrombopag therapy, use of Dimension [place] TBIL is not recommended. Performed By: #### L 501.4020, L501.2450, L100.0100, L500.4050 ####[facility] [address] [place], [address] BUN/CRE 35.0 RATIO High 10-20 [facility] Comment on above: Order Comment: 'TROP ' Serial specimen #1, #2 or #3: 1 Performed By: #### L 501.4020, L501.2450, L100.0100, L500.4050 ####[facility] [address] [place], [address] CA,Total 8.9 mg/dL Normal 8.5-10.1 [facility] Comment on above: Order Comment: 'TROP ' Serial specimen #1, #2 or #3: 1 Performed By: #### L 501.4020, L501.2450, L100.0100, L500.4050 ####[facility] [address] [place], [address] Chloride [Moles/Vol] 103 mmol/L Normal 98-107 [facility] Comment on above: Order Comment: 'TROP ' Serial specimen #1, #2 or #3: 1 Performed By: #### L 501.4020, L501.2450, L100.0100, L500.4050 ####[facility] [address] [place], [address] CO2 [Moles/Vol] 29.0 mmol/L Normal 21.0-32.0 [facility] Comment on above: Order Comment: 'TROP ' Serial specimen #1, #2 or #3: 1 Performed By: #### L 501.4020, L501.2450, L100.0100, L500.4050 ####[facility] [address] [place], [address] Creatinine [Mass/Vol] 0.71 mg/dL Normal 0.55-1.02 [facility] Comment on above: Order Comment: 'TROP ' Serial specimen #1, #2 or #3: 1 Result Comment: The validity of the calculated GFR GFRAA in patients over70 years has not been determined. Clinical correlation isessential. Performed By: #### L 501.4020, L501.2450, L100.0100, L500.4050 ####[facility] [address] [place], [address] EST GFR - AA 108 mL/min Normal >60 [facility] Comment on above: Order Comment: 'TROP ' Serial specimen #1, #2 or #3: 1 Result Comment: Afri can Taiwanese GFR Calc Performed By: #### L 501.4020, L501.2450, L100.0100, L500.4050 ####[facility] [address] [place], [address] GAP 3 Low 5-15 [facility] Comment on above: Order Comment: 'TROP ' Serial specimen #1, #2 or #3: 1 Performed By: #### L 501.4020, L501.2450, L100.0100, L500.4050 ####[facility] [address] [place], [address] GFR/1.73 sq M.predicted among non-blacks MDRD (S/P/Bld) [Vol rate/Area] 90 mL/min/{1.73_m2} Normal >60 [facility] Comment on above: Order Comment: 'TROP ' Serial specimen #1, #2 or #3: 1 Result Comment: Non- GFR Calc Performed By: #### L 501.4020, L501.2450, L100.0100, L500.4050 ####[facility] [address] [place], [address] Globulin (S) [Mass/Vol] 4.5 g/dL High 2.2-4.2 [facility] Comment on above: Order Comment: 'TROP ' Serial specimen #1, #2 or #3: 1 Performed By: #### L 501.4020, L501.2450, L100.0100, L500.4050 ####[facility] [address] [place], [address] Glucose [Mass/Vol] 282 mg/dL High 74-106 [facility] Comment on above: Order Comment: 'TROP ' Serial specimen #1, #2 or #3: 1 Result Comment: Gluc ose result greater than or equal to 200 mg/dLsuggests DIABETES MELLITUS per A.D.A. criteria. Performed By: #### L 501.4020, L501.2450, L100.0100, L500.4050 ####[facility] [address] [place], [address] Potassium [Moles/Vol] 4.4 mmol/L Normal 3.5-5.1 [facility] Comment on above: Order Comment: 'TROP ' Serial specimen #1, #2 or #3: 1 Performed By: #### L 501.4020, L501.2450, L100.0100, L500.4050 ####[facility] [address] [place], [address] Sodium [Moles/Vol] 135 mmol/L Low 136-145 [facility] Comment on above: Order Comment: 'TROP ' Serial specimen #1, #2 or #3: 1 Performed By: #### L 501.4020, L501.2450, L100.0100, L500.4050 ####[facility] [address] [place], [address] T PROT 6.9 g/dL Normal 6.4-8.2 [facility] Comment on above: Order Comment: 'TROP ' Serial specimen #1, #2 or #3: 1 Performed By: #### L 501.4020, L501.2450, L100.0100, L500.4050 ####[facility] [address] [place], [address] Urea nitrogen [Mass/Vol] 25 mg/dL High 7-18 [facility] Comment on above: Order Comment: 'TROP ' Serial specimen #1, #2 or #3: 1 Performed By: #### L 501.4020, L501.2450, L100.0100, L500.4050 ####[facility] [address] [place], [address] Emergency Department Summary on 04-03-2024 Emergency Department Summary Normal [facility] H AND P Exam - Hospitaliston 04-03-2024 H&P Exam - Hospitalist Normal [facility] HH, Hemoglobin AND Hematocri ton 04-03-2024 Hematocrit (Bld) [Volume fraction] 23.1 % Low 37-47 [facility] Comment on above: Performed By: #### L 100.0600 ####[facility] [address] [place], [address] Hemoglobin (Bld) [Mass/Vol] 6.8 g/dL Low 12.0-15.0 [facility] Comment on above: Performed By: #### L 100.0600 ####[facility] [address] [place], [address] L501.4020on 04-03-2024 TROPONIN-I HS 39 pg/mL Normal 3.0-54.0 [facility] Comment on above: Order Comment: 'TROP ' Serial specimen #1, #2 or #3: 1 Result Comment: Ronnie mcleod Note: New Test Units and Gender Specific Reference Ranges. For more information see Policy Stat Procedure [place] High Sensitivity Troponin (TNIH) and attachments. Performed By: #### L 501.4020, L501.2450, L100.0100, L500.4050 ####[facility] [address] [place], [address] Lipaseon 04-03-2024 Lipase [Catalytic activity/Vol] 28 U/L Normal 13-75 [facility] Comment on above: Order Comment: 'TROP ' Serial specimen #1, #2 or #3: 1 Result Comment: Ronnie mcleod note:LIPASE revised reference range effective 22.New Lipase methodology. Expected to produce lower valuesthan the previous assay method.NEW Reference Range: 13 - 75 U/L Performed By: #### L 501.4020, L501.2450, L100.0100, L500.4050 ####[facility] [address] [place], [address] M100.678on 04-03-2024 M100.678 Pending SARS-CoV-2 (COVID 19) Negative INFLUENZA A Negative INFLUENZA B Negative RSV PCR Negative Normal [facility] Comment on above: Performed By: #### M 100.678 ####[facility] [address] [place], [address] Stool Occult Blood iFOBon STOB Positive Normal [facility] Comment on above: Performed By: #### M 100.7900 ####[facility] [address] [place], [address] Type AND Screenon 04-03-2024 Ab SCREEN GEL Negative Normal [facility] Comment on above: Order Comment: CMV N EG? NNumber of units to transfuse: 1Reason for Ordering Blood: AcuteAre the blood/blood products to be transfused? YIs the patient having/had surgery? YWhen ReadyNY Performed By: #### B TS, BRC ####[facility] [address] [place], [address] Urinalysis, Completeon 04-03 BACTERIA RARE Normal None Seen [facility] Comment on above: Order Comment: CLEAN CATCH Performed By: #### L 400.0001 ####[facility] [address] [place], [address] EPI,SQUAMOUS 5-10 SEEN Normal 5-10 [facility] Comment on above: Order Comment: CLEAN CATCH Performed By: #### L 400.0001 ####[facility] [address] [place], [address] WBC 50-100 SEEN Normal 0-5 [facility] Comment on above: Order Comment: CLEAN CATCH Performed By: #### L 400.0001 ####[facility] [address] [place], [address] RBC 25-50 SEEN Normal 0-5 [facility] Comment on above: Order Comment: CLEAN CATCH Performed By: #### L 400.0001 ####[facility] [address] [place], [address] Mucus Ql (Urine sed) 0 SEEN Normal [facility] Comment on above: Order Comment: CLEAN CATCH Performed By: #### L 400.0001 ####[facility] [address] [place], [address] Venous Duplex US, Unilateral on 04-03-2024 Venous Duplex US, Unilateral Normal [facility] XR WRIST MINIMUM 3 VIEWS RIG HTon 03-30-2024 XR WRIST MINIMUM 3 VIEWS RIGHT ORIGINAL EXAMINATION: THREE XRAY VIEWS OF THE RIGHT WRIST 03/30/2024 3:19 am COMPARISON: None. HISTORY: ORDERING SYSTEM PROVIDED HISTORY: Reason for Exam: pain FINDINGS: No acute findings. No fracture or dislocation. There is suspected mild soft tissue swelling throughout the wrist. Minimal degenerative changes of the wrist are noted. IMPRESSION: No acute findings. Interpreted by: Francisco Latham MD Preliminary Report By: Francisco Latham MD Electronically signed By Francisco Latham MD Dictated Date: 03/30/2024 3:28:48 AM Prelim Date: 03/30/2024 3:29:35 AM Sign Date: 03/30/2024 3:29:35 AM Ordering Provider: ALDA Epstein [facility] NITROFURANTOIN:SUSC:PT:CARRIE TE:ORDQN:MICon 03-16-2024 Nitrofurantoin SHAHEEN [Susc] 10,000 - 50,000 cfu/ml Enterococcus faecalis [facility] Work Phone: Nitrofurantoin SHAHEEN [Susc]on 03-16-2024 Enterococcus faecalis Enterococcus faecalis [facility] Work Phone: XR ABDOMEN APon 03-16-2024 XR ABDOMEN AP ORIGINAL EXAMINATION: ONE SUPINE XRAY VIEW(S) OF THE ABDOMEN03/16/2024 8:55 am COMPARISON: CT 02/25/2024 HISTORY: ORDERING SYSTEM PROVIDED HISTORY: Reason for Exam: left ureteral stone, FINDINGS: No urinary calculus is identified on this study. Kidneys are partially obscured by a large amount of stool in the colon. An IUD is present in the pelvis and there is a right-sided pelvic calcification shown to be a fibroid on CT. IMPRESSION: No urinary calculus is seen. Interpreted by: Abdi Montana MD Preliminary Report By: Abdi Montana MD Electronically signed By Abdi Montana MD Dictated Date: 03/16/2024 9:04:50 AM Prelim Date: 03/16/2024 9:06:05 AM Sign Date: 03/16/2024 9:06:05 AM Ordering Provider: KURT PINEDA [facility] Basic Metabolic Profile (BMP )on 03-12-2024 BUN Normal 7-18 [facility] Comment on above: Result Comment: Canc elled via OM: Order cancelled - Patient discharged Performed By: #### L 100.0100, L500.2500 ####[facility] [address] [place], [address] BUN/CRE Normal 10-20 [facility] Comment on above: Result Comment: Canc elled via OM: Order cancelled - Patient discharged Performed By: #### L 100.0100, L500.2500 ####[facility] [address] [place], [address] CA,Total Normal 8.5-10.1 [facility] Comment on above: Result Comment: Canc elled via OM: Order cancelled - Patient discharged Performed By: #### L 100.0100, L500.2500 ####[facility] [address] [place], [address] CL Normal 98-107 [facility] Comment on above: Result Comment: Canc elled via OM: Order cancelled - Patient discharged Performed By: #### L 100.0100, L500.2500 ####[facility] [address] [place], [address] CO2 Normal 21.0-32.0 [facility] Comment on above: Result Comment: Canc elled via OM: Order cancelled - Patient discharged Performed By: #### L 100.0100, L500.2500 ####[facility] [address] [place], [address] CREAT,SERUM Normal 0.55-1.02 [facility] Comment on above: Result Comment: Canc elled via OM: Order cancelled - Patient discharged Performed By: #### L 100.0100, L500.2500 ####[facility] [address] [place], [address] EST GFR Normal >60 [facility] Comment on above: Result Comment: Canc elled via OM: Order cancelled - Patient discharged Performed By: #### L 100.0100, L500.2500 ####[facility] [address] [place], [address] EST GFR - AA Normal >60 [facility] Comment on above: Result Comment: Canc elled via OM: Order cancelled - Patient discharged Performed By: #### L 100.0100, L500.2500 ####[facility] [address] [place], [address] GAP Normal 5-15 [facility] Comment on above: Result Comment: Canc elled via OM: Order cancelled - Patient discharged Performed By: #### L 100.0100, L500.2500 ####[facility] [address] [place], [address] GLU Normal 74-106 [facility] Comment on above: Result Comment: Canc elled via OM: Order cancelled - Patient discharged Performed By: #### L 100.0100, L500.2500 ####[facility] [address] [place], [address] Potassium Normal 3.5-5.1 [facility] Comment on above: Result Comment: Canc elled via OM: Order cancelled - Patient discharged Performed By: #### L 100.0100, L500.2500 ####[facility] [address] [place], [address] Basic Metabolic Profile (BMP) Normal 136-145 [facility] Comment on above: Result Comment: Canc elled via OM: Order cancelled - Patient discharged Performed By: #### L 100.0100, L500.2500 ####[facility] [address] [place], [address] CBC W/Diff, Automatedon 08-2 Absolute Neut Normal 2.0-7.7 [facility] Comment on above: Result Comment: Canc elled via OM: Order cancelled - Patient discharged Performed By: #### L 100.0100, L500.2500 ####[facility] [address] [place], [address] HCT Normal 37-47 [facility] Comment on above: Result Comment: Canc elled via OM: Order cancelled - Patient discharged Performed By: #### L 100.0100, L500.2500 ####[facility] [address] [place], [address] HGB Normal 12.0-15.0 [facility] Comment on above: Result Comment: Canc elled via OM: Order cancelled - Patient discharged Performed By: #### L 100.0100, L500.2500 ####[facility] [address] [place], [address] MCH Normal 27.0-32.0 [facility] Comment on above: Result Comment: Canc elled via OM: Order cancelled - Patient discharged Performed By: #### L 100.0100, L500.2500 ####[facility] [address] [place], [address] MCHC Normal 32-36 [facility] Comment on above: Result Comment: Canc elled via OM: Order cancelled - Patient discharged Performed By: #### L 100.0100, L500.2500 ####[facility] [address] [place], [address] MCV Normal 81-99 [facility] Comment on above: Result Comment: Canc elled via OM: Order cancelled - Patient discharged Performed By: #### L 100.0100, L500.2500 ####[facility] [address] [place], [address] NEUT% Normal 47-70 [facility] Comment on above: Result Comment: Canc elled via OM: Order cancelled - Patient discharged Performed By: #### L 100.0100, L500.2500 ####[facility] [address] [place], [address] PLT Normal 150-450 [facility] Comment on above: Result Comment: Canc elled via OM: Order cancelled - Patient discharged Performed By: #### L 100.0100, L500.2500 ####[facility] [address] [place], [address] RBC Normal 4.2-5.4 [facility] Comment on above: Result Comment: Canc elled via OM: Order cancelled - Patient discharged Performed By: #### L 100.0100, L500.2500 ####[facility] [address] [place], [address] RDW CV Normal 11.6-14.6 [facility] Comment on above: Result Comment: Canc elled via OM: Order cancelled - Patient discharged Performed By: #### L 100.0100, L500.2500 ####[facility] [address] [place], [address] RDW SD Normal 35.1-43.9 [facility] Comment on above: Result Comment: Canc elled via OM: Order cancelled - Patient discharged Performed By: #### L 100.0100, L500.2500 ####[facility] [address] [place], [address] WBC Normal 4.4-11.0 [facility] Comment on above: Result Comment: Canc elled via OM: Order cancelled - Patient discharged Performed By: #### L 100.0100, L500.2500 ####[facility] [address] [place], [address] Endocrinology Visit Reporton 03-12-2024 Endocrinology Visit Report Normal [facility] Basic Metabolic Profile (BMP )on 03-11-2024 BUN Normal 7-18 [facility] Comment on above: Result Comment: Canc elled via OM: Order cancelled - Patient discharged Performed By: #### L 100.0100, L500.2500 ####[facility] [address] [place], [address] BUN/CRE Normal 10-20 [facility] Comment on above: Result Comment: Canc elled via OM: Order cancelled - Patient discharged Performed By: #### L 100.0100, L500.2500 ####[facility] [address] [place], [address] CA,Total Normal 8.5-10.1 [facility] Comment on above: Result Comment: Canc elled via OM: Order cancelled - Patient discharged Performed By: #### L 100.0100, L500.2500 ####[facility] [address] [place], [address] CL Normal 98-107 [facility] Comment on above: Result Comment: Canc elled via OM: Order cancelled - Patient discharged Performed By: #### L 100.0100, L500.2500 ####[facility] [address] [place], [address] CO2 Normal 21.0-32.0 [facility] Comment on above: Result Comment: Canc elled via OM: Order cancelled - Patient discharged Performed By: #### L 100.0100, L500.2500 ####[facility] [address] [place], [address] CREAT,SERUM Normal 0.55-1.02 [facility] Comment on above: Result Comment: Canc elled via OM: Order cancelled - Patient discharged Performed By: #### L 100.0100, L500.2500 ####[facility] [address] [place], [address] EST GFR Normal >60 [facility] Comment on above: Result Comment: Canc elled via OM: Order cancelled - Patient discharged Performed By: #### L 100.0100, L500.2500 ####[facility] [address] [place], [address] EST GFR - AA Normal >60 [facility] Comment on above: Result Comment: Canc elled via OM: Order cancelled - Patient discharged Performed By: #### L 100.0100, L500.2500 ####[facility] [address] [place], [address] GAP Normal 5-15 [facility] Comment on above: Result Comment: Canc elled via OM: Order cancelled - Patient discharged Performed By: #### L 100.0100, L500.2500 ####[facility] [address] [place], [address] GLU Normal 74-106 [facility] Comment on above: Result Comment: Canc elled via OM: Order cancelled - Patient discharged Performed By: #### L 100.0100, L500.2500 ####[facility] [address] [place], [address] Potassium Normal 3.5-5.1 [facility] Comment on above: Result Comment: Canc elled via OM: Order cancelled - Patient discharged Performed By: #### L 100.0100, L500.2500 ####[facility] [address] [place], [address] Basic Metabolic Profile (BMP) Normal 136-145 [facility] Comment on above: Result Comment: Canc elled via OM: Order cancelled - Patient discharged Performed By: #### L 100.0100, L500.2500 ####[facility] [address] [place], [address] CBC W/Diff, Automatedon 08-2 Absolute Neut Normal 2.0-7.7 [facility] Comment on above: Result Comment: Canc elled via OM: Order cancelled - Patient discharged Performed By: #### L 100.0100, L500.2500 ####[facility] [address] [place], [address] HCT Normal 37-47 [facility] Comment on above: Result Comment: Canc elled via OM: Order cancelled - Patient discharged Performed By: #### L 100.0100, L500.2500 ####[facility] [address] [place], [address] HGB Normal 12.0-15.0 [facility] Comment on above: Result Comment: Canc elled via OM: Order cancelled - Patient discharged Performed By: #### L 100.0100, L500.2500 ####[facility] [address] [place], [address] MCH Normal 27.0-32.0 [facility] Comment on above: Result Comment: Canc elled via OM: Order cancelled - Patient discharged Performed By: #### L 100.0100, L500.2500 ####[facility] [address] [place], [address] MCHC Normal 32-36 [facility] Comment on above: Result Comment: Canc elled via OM: Order cancelled - Patient discharged Performed By: #### L 100.0100, L500.2500 ####[facility] [address] [place], [address] MCV Normal 81-99 [facility] Comment on above: Result Comment: Canc elled via OM: Order cancelled - Patient discharged Performed By: #### L 100.0100, L500.2500 ####[facility] [address] [place], [address] NEUT% Normal 47-70 [facility] Comment on above: Result Comment: Canc elled via OM: Order cancelled - Patient discharged Performed By: #### L 100.0100, L500.2500 ####[facility] [address] [place], [address] PLT Normal 150-450 [facility] Comment on above: Result Comment: Canc elled via OM: Order cancelled - Patient discharged Performed By: #### L 100.0100, L500.2500 ####[facility] [address] [place], [address] RBC Normal 4.2-5.4 [facility] Comment on above: Result Comment: Canc elled via OM: Order cancelled - Patient discharged Performed By: #### L 100.0100, L500.2500 ####[facility] [address] [place], [address] RDW CV Normal 11.6-14.6 [facility] Comment on above: Result Comment: Canc elled via OM: Order cancelled - Patient discharged Performed By: #### L 100.0100, L500.2500 ####[facility] [address] [place], [address] RDW SD Normal 35.1-43.9 [facility] Comment on above: Result Comment: Canc elled via OM: Order cancelled - Patient discharged Performed By: #### L 100.0100, L500.2500 ####[facility] [address] [place], [address] WBC Normal 4.4-11.0 [facility] Comment on above: Result Comment: Canc elled via OM: Order cancelled - Patient discharged Performed By: #### L 100.0100, L500.2500 ####[facility] [address] [place], [address] Basic Metabolic Profile (BMP )on 03-10-2024 BUN Normal -18 [facility] Comment on above: Result Comment: Canc elled via OM: Order cancelled - Patient discharged Performed By: #### L 500.2500, L100.0100 ####[facility] [address] [place], [address] BUN/CRE Normal - [facility] Comment on above: Result Comment: Canc elled via OM: Order cancelled - Patient discharged Performed By: #### L 500.2500, L100.0100 ####[facility] [address] [place], [address] CA,Total Normal 8.5-10.1 [facility] Comment on above: Result Comment: Canc elled via OM: Order cancelled - Patient discharged Performed By: #### L 500.2500, L100.0100 ####[facility] [address] [place], [address] CL Normal 98-107 [facility] Comment on above: Result Comment: Canc elled via OM: Order cancelled - Patient discharged Performed By: #### L 500.2500, L100.0100 ####[facility] [address] [place], [address] CO2 Normal 21.0-32.0 [facility] Comment on above: Result Comment: Canc elled via OM: Order cancelled - Patient discharged Performed By: #### L 500.2500, L100.0100 ####[facility] [address] [place], [address] CREAT,SERUM Normal 0.55-1.02 [facility] Comment on above: Result Comment: Canc elled via OM: Order cancelled - Patient discharged Performed By: #### L 500.2500, L100.0100 ####[facility] [address] [place], [address] EST GFR Normal >60 [facility] Comment on above: Result Comment: Canc elled via OM: Order cancelled - Patient discharged Performed By: #### L 500.2500, L100.0100 ####[facility] [address] [place], [address] EST GFR - AA Normal >60 [facility] Comment on above: Result Comment: Canc elled via OM: Order cancelled - Patient discharged Performed By: #### L 500.2500, L100.0100 ####[facility] [address] [place], [address] GAP Normal 5-15 [facility] Comment on above: Result Comment: Canc elled via OM: Order cancelled - Patient discharged Performed By: #### L 500.2500, L100.0100 ####[facility] [address] [place], [address] GLU Normal 74-106 [facility] Comment on above: Result Comment: Canc elled via OM: Order cancelled - Patient discharged Performed By: #### L 500.2500, L100.0100 ####[facility] [address] [place], [address] Potassium Normal 3.5-5.1 [facility] Comment on above: Result Comment: Canc elled via OM: Order cancelled - Patient discharged Performed By: #### L 500.2500, L100.0100 ####[facility] [address] [place], [address] Basic Metabolic Profile (BMP) Normal 136-145 [facility] Comment on above: Result Comment: Canc elled via OM: Order cancelled - Patient discharged Performed By: #### L 500.2500, L100.0100 ####[facility] [address] [place], [address] CBC W/Diff, Automatedon 08-2 0-2023 Absolute Neut Normal 2.0-7.7 [facility] Comment on above: Result Comment: Canc elled via OM: Order cancelled - Patient discharged Performed By: #### L 500.2500, L100.0100 ####[facility] [address] [place], [address] HCT Normal 37-47 [facility] Comment on above: Result Comment: Canc elled via OM: Order cancelled - Patient discharged Performed By: #### L 500.2500, L100.0100 ####[facility] [address] [place], [address] HGB Normal 12.0-15.0 [facility] Comment on above: Result Comment: Canc elled via OM: Order cancelled - Patient discharged Performed By: #### L 500.2500, L100.0100 ####[facility] [address] [place], [address] MCH Normal 27.0-32.0 [facility] Comment on above: Result Comment: Canc elled via OM: Order cancelled - Patient discharged Performed By: #### L 500.2500, L100.0100 ####[facility] [address] [place], [address] MCHC Normal 32-36 [facility] Comment on above: Result Comment: Canc elled via OM: Order cancelled - Patient discharged Performed By: #### L 500.2500, L100.0100 ####[facility] [address] [place], [address] MCV Normal 81-99 [facility] Comment on above: Result Comment: Canc elled via OM: Order cancelled - Patient discharged Performed By: #### L 500.2500, L100.0100 ####[facility] [address] [place], [address] NEUT% Normal 47-70 [facility] Comment on above: Result Comment: Canc elled via OM: Order cancelled - Patient discharged Performed By: #### L 500.2500, L100.0100 ####[facility] [address] [place], [address] PLT Normal 150-450 [facility] Comment on above: Result Comment: Canc elled via OM: Order cancelled - Patient discharged Performed By: #### L 500.2500, L100.0100 ####[facility] [address] [place], [address] RBC Normal 4.2-5.4 [facility] Comment on above: Result Comment: Canc elled via OM: Order cancelled - Patient discharged Performed By: #### L 500.2500, L100.0100 ####[facility] [address] [place], [address] RDW CV Normal 11.6-14.6 [facility] Comment on above: Result Comment: Canc elled via OM: Order cancelled - Patient discharged Performed By: #### L 500.2500, L100.0100 ####[facility] [address] [place], [address] RDW SD Normal 35.1-43.9 [facility] Comment on above: Result Comment: Canc elled via OM: Order cancelled - Patient discharged Performed By: #### L 500.2500, L100.0100 ####[facility] [address] [place], [address] WBC Normal 4.4-11.0 [facility] Comment on above: Result Comment: Canc elled via OM: Order cancelled - Patient discharged Performed By: #### L 500.2500, L100.0100 ####[facility] [address] [place], [address] Basic Metabolic Profile (BMP )on 03-09-2024 BUN Normal 7-18 [facility] Comment on above: Result Comment: Canc elled via OM: Order cancelled - Patient discharged Performed By: #### L 100.0100, L500.2500 ####[facility] [address] [place], [address] BUN/CRE Normal 10-20 [facility] Comment on above: Result Comment: Canc elled via OM: Order cancelled - Patient discharged Performed By: #### L 100.0100, L500.2500 ####[facility] [address] [place], [address] CA,Total Normal 8.5-10.1 [facility] Comment on above: Result Comment: Canc elled via OM: Order cancelled - Patient discharged Performed By: #### L 100.0100, L500.2500 ####[facility] [address] [place], [address] CL Normal 98-107 [facility] Comment on above: Result Comment: Canc elled via OM: Order cancelled - Patient discharged Performed By: #### L 100.0100, L500.2500 ####[facility] [address] [place], [address] CO2 Normal 21.0-32.0 [facility] Comment on above: Result Comment: Canc elled via OM: Order cancelled - Patient discharged Performed By: #### L 100.0100, L500.2500 ####[facility] [address] [place], [address] CREAT,SERUM Normal 0.55-1.02 [facility] Comment on above: Result Comment: Canc elled via OM: Order cancelled - Patient discharged Performed By: #### L 100.0100, L500.2500 ####[facility] [address] [place], [address] EST GFR Normal >60 [facility] Comment on above: Result Comment: Canc elled via OM: Order cancelled - Patient discharged Performed By: #### L 100.0100, L500.2500 ####[facility] [address] [place], [address] EST GFR - AA Normal >60 [facility] Comment on above: Result Comment: Canc elled via OM: Order cancelled - Patient discharged Performed By: #### L 100.0100, L500.2500 ####[facility] [address] [place], [address] GAP Normal 5-15 [facility] Comment on above: Result Comment: Canc elled via OM: Order cancelled - Patient discharged Performed By: #### L 100.0100, L500.2500 ####[facility] [address] [place], [address] GLU Normal 74-106 [facility] Comment on above: Result Comment: Canc elled via OM: Order cancelled - Patient discharged Performed By: #### L 100.0100, L500.2500 ####[facility] [address] [place], [address] Potassium Normal 3.5-5.1 [facility] Comment on above: Result Comment: Canc elled via OM: Order cancelled - Patient discharged Performed By: #### L 100.0100, L500.2500 ####[facility] [address] [place], [address] Basic Metabolic Profile (BMP) Normal 136-145 [facility] Comment on above: Result Comment: Canc elled via OM: Order cancelled - Patient discharged Performed By: #### L 100.0100, L500.2500 ####[facility] [address] [place], [address] CBC W/Diff, Automatedon 02-19 Absolute Neut Normal 2.0-7.7 [facility] Comment on above: Result Comment: Canc elled via OM: Order cancelled - Patient discharged Performed By: #### L 100.0100, L500.2500 ####[facility] [address] [place], [address] HCT Normal 37-47 [facility] Comment on above: Result Comment: Canc elled via OM: Order cancelled - Patient discharged Performed By: #### L 100.0100, L500.2500 ####[facility] [address] [place], [address] HGB Normal 12.0-15.0 [facility] Comment on above: Result Comment: Canc elled via OM: Order cancelled - Patient discharged Performed By: #### L 100.0100, L500.2500 ####[facility] [address] [place], [address] MCH Normal 27.0-32.0 [facility] Comment on above: Result Comment: Canc elled via OM: Order cancelled - Patient discharged Performed By: #### L 100.0100, L500.2500 ####[facility] [address] [place], [address] MCHC Normal 32-36 [facility] Comment on above: Result Comment: Canc elled via OM: Order cancelled - Patient discharged Performed By: #### L 100.0100, L500.2500 ####[facility] [address] [place], [address] MCV Normal 81-99 [facility] Comment on above: Result Comment: Canc elled via OM: Order cancelled - Patient discharged Performed By: #### L 100.0100, L500.2500 ####[facility] [address] [place], [address] NEUT% Normal 47-70 [facility] Comment on above: Result Comment: Canc elled via OM: Order cancelled - Patient discharged Performed By: #### L 100.0100, L500.2500 ####[facility] [address] [place], [address] PLT Normal 150-450 [facility] Comment on above: Result Comment: Canc elled via OM: Order cancelled - Patient discharged Performed By: #### L 100.0100, L500.2500 ####[facility] [address] [place], [address] RBC Normal 4.2-5.4 [facility] Comment on above: Result Comment: Canc elled via OM: Order cancelled - Patient discharged Performed By: #### L 100.0100, L500.2500 ####[facility] [address] [place], [address] RDW CV Normal 11.6-14.6 [facility] Comment on above: Result Comment: Canc elled via OM: Order cancelled - Patient discharged Performed By: #### L 100.0100, L500.2500 ####[facility] [address] [place], [address] RDW SD Normal 35.1-43.9 [facility] Comment on above: Result Comment: Canc elled via OM: Order cancelled - Patient discharged Performed By: #### L 100.0100, L500.2500 ####[facility] [address] [place], [address] WBC Normal 4.4-11.0 [facility] Comment on above: Result Comment: Canc elled via OM: Order cancelled - Patient discharged Performed By: #### L 100.0100, L500.2500 ####[facility] [address] [place], [address] Basic Metabolic Profile (BMP )on 03-08-2024 BUN Normal -18 [facility] Comment on above: Result Comment: Canc elled via OM: Order cancelled - Patient discharged Performed By: #### L 100.0100, L500.2500 ####[facility] [address] [place], [address] BUN/CRE Normal 10-20 [facility] Comment on above: Result Comment: Canc elled via OM: Order cancelled - Patient discharged Performed By: #### L 100.0100, L500.2500 ####[facility] [address] [place], [address] CA,Total Normal 8.5-10.1 [facility] Comment on above: Result Comment: Canc elled via OM: Order cancelled - Patient discharged Performed By: #### L 100.0100, L500.2500 ####[facility] [address] [place], [address] CL Normal 98-107 [facility] Comment on above: Result Comment: Canc elled via OM: Order cancelled - Patient discharged Performed By: #### L 100.0100, L500.2500 ####[facility] [address] [place], [address] CO2 Normal 21.0-32.0 [facility] Comment on above: Result Comment: Canc elled via OM: Order cancelled - Patient discharged Performed By: #### L 100.0100, L500.2500 ####[facility] [address] [place], [address] CREAT,SERUM Normal 0.55-1.02 [facility] Comment on above: Result Comment: Canc elled via OM: Order cancelled - Patient discharged Performed By: #### L 100.0100, L500.2500 ####[facility] [address] [place], [address] EST GFR Normal >60 [facility] Comment on above: Result Comment: Canc elled via OM: Order cancelled - Patient discharged Performed By: #### L 100.0100, L500.2500 ####[facility] [address] [place], [address] EST GFR - AA Normal >60 [facility] Comment on above: Result Comment: Canc elled via OM: Order cancelled - Patient discharged Performed By: #### L 100.0100, L500.2500 ####[facility] [address] [place], [address] GAP Normal 5-15 [facility] Comment on above: Result Comment: Canc elled via OM: Order cancelled - Patient discharged Performed By: #### L 100.0100, L500.2500 ####[facility] [address] [place], [address] GLU Normal 74-106 [facility] Comment on above: Result Comment: Canc elled via OM: Order cancelled - Patient discharged Performed By: #### L 100.0100, L500.2500 ####[facility] [address] [place], [address] Potassium Normal 3.5-5.1 [facility] Comment on above: Result Comment: Canc elled via OM: Order cancelled - Patient discharged Performed By: #### L 100.0100, L500.2500 ####[facility] [address] [place], [address] Basic Metabolic Profile (BMP) Normal 136-145 [facility] Comment on above: Result Comment: Canc elled via OM: Order cancelled - Patient discharged Performed By: #### L 100.0100, L500.2500 ####[facility] [address] [place], [address] CBC W/Diff, Automatedon - Absolute Neut Normal 2.0-7.7 [facility] Comment on above: Result Comment: Canc elled via OM: Order cancelled - Patient discharged Performed By: #### L 100.0100, L500.2500 ####[facility] [address] [place], [address] HCT Normal 37-47 [facility] Comment on above: Result Comment: Canc elled via OM: Order cancelled - Patient discharged Performed By: #### L 100.0100, L500.2500 ####[facility] [address] [place], [address] HGB Normal 12.0-15.0 [facility] Comment on above: Result Comment: Canc elled via OM: Order cancelled - Patient discharged Performed By: #### L 100.0100, L500.2500 ####[facility] [address] [place], [address] MCH Normal 27.0-32.0 [facility] Comment on above: Result Comment: Canc elled via OM: Order cancelled - Patient discharged Performed By: #### L 100.0100, L500.2500 ####[facility] [address] [place], [address] MCHC Normal 32-36 [facility] Comment on above: Result Comment: Canc elled via OM: Order cancelled - Patient discharged Performed By: #### L 100.0100, L500.2500 ####[facility] [address] [place], [address] MCV Normal 81-99 [facility] Comment on above: Result Comment: Canc elled via OM: Order cancelled - Patient discharged Performed By: #### L 100.0100, L500.2500 ####[facility] [address] [place], [address] NEUT% Normal 47-70 [facility] Comment on above: Result Comment: Canc elled via OM: Order cancelled - Patient discharged Performed By: #### L 100.0100, L500.2500 ####[facility] [address] [place], [address] PLT Normal 150-450 [facility] Comment on above: Result Comment: Canc elled via OM: Order cancelled - Patient discharged Performed By: #### L 100.0100, L500.2500 ####[facility] [address] [place], [address] RBC Normal 4.2-5.4 [facility] Comment on above: Result Comment: Canc elled via OM: Order cancelled - Patient discharged Performed By: #### L 100.0100, L500.2500 ####[facility] [address] [place], [address] RDW CV Normal 11.6-14.6 [facility] Comment on above: Result Comment: Canc elled via OM: Order cancelled - Patient discharged Performed By: #### L 100.0100, L500.2500 ####[facility] [address] [place], [address] RDW SD Normal 35.1-43.9 [facility] Comment on above: Result Comment: Canc elled via OM: Order cancelled - Patient discharged Performed By: #### L 100.0100, L500.2500 ####[facility] [address] [place], [address] WBC Normal 4.4-11.0 [facility] Comment on above: Result Comment: Canc elled via OM: Order cancelled - Patient discharged Performed By: #### L 100.0100, L500.2500 ####[facility] [address] [place], [address] Basic Metabolic Profile (BMP )on 03-07-2024 BUN/CRE 22.7 RATIO High 10-20 [facility] Comment on above: Performed By: #### L 100.0100, L500.2500 ####[facility] [address] [place], [address] CA,Total 8.7 mg/dL Normal 8.5-10.1 [facility] Comment on above: Performed By: #### L 100.0100, L500.2500 ####[facility] [address] [place], [address] Chloride [Moles/Vol] 104 mmol/L Normal 98-107 [facility] Comment on above: Performed By: #### L 100.0100, L500.2500 ####[facility] [address] [place], [address] CO2 [Moles/Vol] 28.0 mmol/L Normal 21.0-32.0 [facility] Comment on above: Performed By: #### L 100.0100, L500.2500 ####[facility] [address] [place], [address] Creatinine [Mass/Vol] 0.66 mg/dL Normal 0.55-1.02 [facility] Comment on above: Result Comment: The validity of the calculated GFR GFRAA in patients over70 years has not been determined. Clinical correlation isessential. Performed By: #### L 100.0100, L500.2500 ####[facility] [address] [place], [address] ECRCL 108.38 ml/min Normal [facility] Comment on above: Performed By: #### L 100.0100, L500.2500 ####[facility] [address] [place], [address] EST GFR - AA 118 mL/min Normal >60 [facility] Comment on above: Result Comment: Afri can Taiwanese GFR Calc Performed By: #### L 100.0100, L500.2500 ####[facility] [address] [place], [address] GAP 5 Normal 5-15 [facility] Comment on above: Performed By: #### L 100.0100, L500.2500 ####[facility] [address] [place], [address] GFR/1.73 sq M.predicted among non-blacks MDRD (S/P/Bld) [Vol rate/Area] 98 mL/min/{1.73_m2} Normal >60 [facility] Comment on above: Result Comment: Non- GFR Calc Performed By: #### L 100.0100, L500.2500 ####[facility] [address] [place], [address] Glucose [Mass/Vol] 212 mg/dL High 74-106 [facility] Comment on above: Result Comment: Gluc ose result greater than or equal to 200 mg/dLsuggests DIABETES MELLITUS per A.D.A. criteria. Performed By: #### L 100.0100, L500.2500 ####[facility] [address] [place], [address] Potassium [Moles/Vol] 4.0 mmol/L Normal 3.5-5.1 [facility] Comment on above: Performed By: #### L 100.0100, L500.2500 ####[facility] [address] [place], [address] Sodium [Moles/Vol] 137 mmol/L Normal 136-145 [facility] Comment on above: Performed By: #### L 100.0100, L500.2500 ####[facility] [address] [place], [address] Urea nitrogen [Mass/Vol] 15 mg/dL Normal 7-18 [facility] Comment on above: Performed By: #### L 100.0100, L500.2500 ####[facility] [address] [place], [address] Bedside Glucoseon 03-07-2023 FINGERSTICK GLU 287 mg/dL High 74-106 [facility] Comment on above: Result Comment: ESPERANZA GEMENT OF PATIENT CARE PER NURSING PROTOCOL Performed By: #### L 501.080 ####[facility] [address] [place], [address] FINGERSTICK GLU 182 mg/dL High 74-106 [facility] Comment on above: Result Comment: ESPERANZA GEMENT OF PATIENT CARE PER NURSING PROTOCOL Performed By: #### L 501.080 ####[facility] [address] [place], [address] CBC W/Diff, Automatedon 08- Absolute Lymph 2.79 X10 3/uL Normal 0.83-4.51 [facility] Comment on above: Performed By: #### L 100.0100, L500.2500 ####[facility] [address] [place], [address] Absolute Neut 4.6 X10 3/uL Normal 2.0-7.7 [facility] Comment on above: Performed By: #### L 100.0100, L500.2500 ####[facility] [address] [place], [address] Basophils/100 WBC (Bld) 0.3 % Normal 0-1 [facility] Comment on above: Performed By: #### L 100.0100, L500.2500 ####[facility] [address] [place], [address] Eosinophils/100 WBC (Bld) 0.3 % Normal 0-5 [facility] Comment on above: Performed By: #### L 100.0100, L500.2500 ####[facility] [address] [place], [address] Erythrocyte distribution width (RBC) [Ratio] 15.9 % High 11.6-14.6 [facility] Comment on above: Performed By: #### L 100.0100, L500.2500 ####[facility] [address] [place], [address] Hematocrit (Bld) [Volume fraction] 36.8 % Low 37-47 [facility] Comment on above: Performed By: #### L 100.0100, L500.2500 ####[facility] [address] [place], [address] Hemoglobin (Bld) [Mass/Vol] 11.2 g/dL Low 12.0-15.0 [facility] Comment on above: Performed By: #### L 100.0100, L500.2500 ####[facility] [address] [place], [address] IG% 1.300 High 0.0-0.9 [facility] Comment on above: Result Comment: IG% - Immature Granulocytes (promyelocytes, myelocytes andmetamyelocytes) > 1% indicates that a LEFT SHIFT is Present. Performed By: #### L 100.0100, L500.2500 ####[facility] [address] [place], [address] Lymphocytes/100 WBC (Bld) 35.2 % Normal 19-41 [facility] Comment on above: Performed By: #### L 100.0100, L500.2500 ####[facility] [address] [place], [address] MCH (RBC) [Entitic mass] 26.2 pg Low 27.0-32.0 [facility] Comment on above: Performed By: #### L 100.0100, L500.2500 ####[facility] [address] [place], [address] MCHC (RBC) [Mass/Vol] 30.4 g/dL Low 32-36 [facility] Comment on above: Performed By: #### L 100.0100, L500.2500 ####[facility] [address] [place], [address] MCV (RBC) [Entitic vol] 86.2 fL Normal 81-99 [facility] Comment on above: Performed By: #### L 100.0100, L500.2500 ####[facility] [address] [place], [address] Monocytes/100 WBC (Bld) 5.0 % Normal 0-10 [facility] Comment on above: Performed By: #### L 100.0100, L500.2500 ####[facility] [address] [place], [address] Neutrophils/100 WBC (Bld) 57.9 % Normal 47-70 [facility] Comment on above: Performed By: #### L 100.0100, L500.2500 ####[facility] [address] [place], [address] Nucleated RBC (Bld) [#/Vol] 0 10*3/uL Normal 0-5 [facility] Comment on above: Performed By: #### L 100.0100, L500.2500 ####[facility] [address] [place], [address] Platelet mean volume (Bld) [Entitic vol] 10.5 fL Normal 6.2-12.0 [facility] Comment on above: Performed By: #### L 100.0100, L500.2500 ####[facility] [address] [place], [address] Platelets (Bld) [#/Vol] 190 10*3/uL Normal 150-450 [facility] Comment on above: Performed By: #### L 100.0100, L500.2500 ####[facility] [address] [place], [address] RBC (Bld) [#/Vol] 4.27 10*6/uL Normal 4.2-5.4 [facility] Comment on above: Performed By: #### L 100.0100, L500.2500 ####[facility] [address] [place], [address] RDW SD 49.9 fl High 35.1-43.9 [facility] Comment on above: Performed By: #### L 100.0100, L500.2500 ####[facility] [address] [place], [address] WBC (Bld) [#/Vol] 7.9 10*3/uL Normal 4.4-11.0 [facility] Comment on above: Performed By: #### L 100.0100, L500.2500 ####[facility] [address] [place], [address] Discharge Instructionon 02-[address] [facility] Urine Cultureon 03-07-2024 URC Culture exhibits no growth. Normal [facility] Comment on above: Performed By: #### M 100.2200 ####[facility] [address] [place], [address] Basic Metabolic Profile (BMP )on 03-06-2024 BUN/CRE 22.2 RATIO High 10-20 [facility] Comment on above: Performed By: #### L 100.0100, L500.2500 ####[facility] [address] [place], [address] CA,Total 8.7 mg/dL Normal 8.5-10.1 [facility] Comment on above: Performed By: #### L 100.0100, L500.2500 ####[facility] [address] [place], [address] Chloride [Moles/Vol] 106 mmol/L Normal 98-107 [facility] Comment on above: Performed By: #### L 100.0100, L500.2500 ####[facility] [address] [place], [address] CO2 [Moles/Vol] 29.0 mmol/L Normal 21.0-32.0 [facility] Comment on above: Performed By: #### L 100.0100, L500.2500 ####[facility] [address] [place], [address] Creatinine [Mass/Vol] 0.68 mg/dL Normal 0.55-1.02 [facility] Comment on above: Result Comment: The validity of the calculated GFR GFRAA in patients over70 years has not been determined. Clinical correlation isessential. Performed By: #### L 100.0100, L500.2500 ####[facility] [address] [place], [address] ECRCL 104.44 ml/min Normal [facility] Comment on above: Performed By: #### L 100.0100, L500.2500 ####[facility] [address] [place], [address] EST GFR - AA 115 mL/min Normal >60 [facility] Comment on above: Result Comment: Afri can Taiwanese GFR Calc Performed By: #### L 100.0100, L500.2500 ####[facility] [address] [place], [address] GAP 3 Low 5-15 [facility] Comment on above: Performed By: #### L 100.0100, L500.2500 ####[facility] [address] [place], [address] GFR/1.73 sq M.predicted among non-blacks MDRD (S/P/Bld) [Vol rate/Area] 95 mL/min/{1.73_m2} Normal >60 [facility] Comment on above: Result Comment: Non- GFR Calc Performed By: #### L 100.0100, L500.2500 ####[facility] [address] [place], [address] Glucose [Mass/Vol] 72 mg/dL Low 74-106 [facility] Comment on above: Performed By: #### L 100.0100, L500.2500 ####[facility] [address] [place], [address] Potassium [Moles/Vol] 3.7 mmol/L Normal 3.5-5.1 [facility] Comment on above: Performed By: #### L 100.0100, L500.2500 ####[facility] [address] [place], [address] Sodium [Moles/Vol] 138 mmol/L Normal 136-145 [facility] Comment on above: Performed By: #### L 100.0100, L500.2500 ####[facility] [address] [place], [address] Urea nitrogen [Mass/Vol] 15 mg/dL Normal 7-18 [facility] Comment on above: Performed By: #### L 100.0100, L500.2500 ####[facility] [address] [place], [address] Bedside Glucoseon 03-06-2024 FINGERSTICK GLU 309 mg/dL High 74-106 [facility] Comment on above: Result Comment: ESPERANZA VILLALTA OF PATIENT CARE PER NURSING PROTOCOL Performed By: #### L 501.080 ####[facility] [address] [place], [address] FINGERSTICK GLU 255 mg/dL High 74-106 [facility] Comment on above: Result Comment: ESPERANZA GEMENT OF PATIENT CARE PER NURSING PROTOCOL Performed By: #### L 501.080 ####[facility] [address] [place], [address] FINGERSTICK GLU 118 mg/dL High 74-106 [facility] Comment on above: Result Comment: ESPERANZA GEMENT OF PATIENT CARE PER NURSING PROTOCOL Performed By: #### L 501.080 ####[facility] [address] [place], [address] FINGERSTICK GLU 69 mg/dL Low 74-106 [facility] Comment on above: Result Comment: ESPERANZA GEMENT OF PATIENT CARE PER NURSING PROTOCOL Performed By: #### L 501.080 ####[facility] [address] [place], [address] CBC W/Diff, Automatedon 08-07 27-2023 Absolute Lymph 2.59 X10 3/uL Normal 0.83-4.51 [facility] Comment on above: Performed By: #### L 100.0100, L500.2500 ####[facility] [address] [place], [address] Absolute Neut 3.5 X10 3/uL Normal 2.0-7.7 [facility] Comment on above: Performed By: #### L 100.0100, L500.2500 ####[facility] [address] [place], [address] Basophils/100 WBC (Bld) 0.8 % Normal 0-1 [facility] Comment on above: Performed By: #### L 100.0100, L500.2500 ####[facility] [address] [place], [address] Eosinophils/100 WBC (Bld) 0.8 % Normal 0-5 [facility] Comment on above: Performed By: #### L 100.0100, L500.2500 ####[facility] [address] [place], [address] Erythrocyte distribution width (RBC) [Ratio] 15.7 % High 11.6-14.6 [facility] Comment on above: Performed By: #### L 100.0100, L500.2500 ####[facility] [address] [place], [address] Hematocrit (Bld) [Volume fraction] 36.7 % Low 37-47 [facility] Comment on above: Performed By: #### L 100.0100, L500.2500 ####[facility] [address] [place], [address] Hemoglobin (Bld) [Mass/Vol] 11.2 g/dL Low 12.0-15.0 [facility] Comment on above: Performed By: #### L 100.0100, L500.2500 ####[facility] [address] [place], [address] IG% 1.400 High 0.0-0.9 [facility] Comment on above: Result Comment: IG% - Immature Granulocytes (promyelocytes, myelocytes andmetamyelocytes) > 1% indicates that a LEFT SHIFT is Present. Performed By: #### L 100.0100, L500.2500 ####[facility] [address] [place], [address] Lymphocytes/100 WBC (Bld) 39.2 % Normal 19-41 [facility] Comment on above: Performed By: #### L 100.0100, L500.2500 ####[facility] [address] [place], [address] MCH (RBC) [Entitic mass] 26.4 pg Low 27.0-32.0 [facility] Comment on above: Performed By: #### L 100.0100, L500.2500 ####[facility] [address] [place], [address] MCHC (RBC) [Mass/Vol] 30.5 g/dL Low 32-36 [facility] Comment on above: Performed By: #### L 100.0100, L500.2500 ####[facility] [address] [place], [address] MCV (RBC) [Entitic vol] 86.4 fL Normal 81-99 [facility] Comment on above: Performed By: #### L 100.0100, L500.2500 ####[facility] [address] [place], [address] Monocytes/100 WBC (Bld) 5.6 % Normal 0-10 [facility] Comment on above: Performed By: #### L 100.0100, L500.2500 ####[facility] [address] [place], [address] Neutrophils/100 WBC (Bld) 52.2 % Normal 47-70 [facility] Comment on above: Performed By: #### L 100.0100, L500.2500 ####[facility] [address] [place], [address] Nucleated RBC (Bld) [#/Vol] 0 10*3/uL Normal 0-5 [facility] Comment on above: Performed By: #### L 100.0100, L500.2500 ####[facility] [address] [place], [address] Platelet mean volume (Bld) [Entitic vol] 10.6 fL Normal 6.2-12.0 [facility] Comment on above: Performed By: #### L 100.0100, L500.2500 ####[facility] [address] [place], [address] Platelets (Bld) [#/Vol] 180 10*3/uL Normal 150-450 [facility] Comment on above: Performed By: #### L 100.0100, L500.2500 ####[facility] [address] [place], [address] RBC (Bld) [#/Vol] 4.25 10*6/uL Normal 4.2-5.4 [facility] Comment on above: Performed By: #### L 100.0100, L500.2500 ####[facility] [address] [place], [address] RDW SD 49.4 fl High 35.1-43.9 [facility] Comment on above: Performed By: #### L 100.0100, L500.2500 ####[facility] [address] [place], [address] WBC (Bld) [#/Vol] 6.6 10*3/uL Normal 4.4-11.0 [facility] Comment on above: Performed By: #### L 100.0100, L500.2500 ####[facility] [address] [place], [address] Urinalysis, Completeon 03-06 BACTERIA 1+ /hpf Normal None Seen [facility] Comment on above: Order Comment: CLEAN CATCH Performed By: #### L 400.0001 ####[facility] [address] [place], [address] CAST,FINE GRAN 0 SEEN Normal 0-5 [facility] Comment on above: Order Comment: CLEAN CATCH Performed By: #### L 400.0001 ####[facility] [address] [place], [address] RBC > 100 SEEN Normal 0-5 [facility] Comment on above: Order Comment: CLEAN CATCH Performed By: #### L 400.0001 ####[facility] [address] [place], [address] WBC 50-100 SEEN Normal 0-5 [facility] Comment on above: Order Comment: CLEAN CATCH Performed By: #### L 400.0001 ####[facility] [address] [place], [address] BILIRUBIN URINE Negative Normal Negative [facility] Comment on above: Order Comment: CLEAN CATCH Performed By: #### L 400.0001 ####[facility] [address] [facility] [address] Clarity (U) Cloudy Normal Clear [facility] Comment on above: Order Comment: CLEAN CATCH Performed By: #### L 400.0001 ####[facility] [address] [facility] [address] Color (U) Yellow Normal Yellow [facility] Comment on above: Order Comment: CLEAN CATCH Performed By: #### L 400.0001 ####[facility] [address] [place], [address] GLUCOSE, UR Normal Normal Normal [facility] Comment on above: Order Comment: CLEAN CATCH Performed By: #### L 400.0001 ####[facility] [address] [place], [address] KETONE UR Negative Normal Negative [facility] Comment on above: Order Comment: CLEAN CATCH Performed By: #### L 400.0001 ####[facility] [address] [place], [address] LEUK ESTERASE 500 /ul Abnormal Negative [facility] Comment on above: Order Comment: CLEAN CATCH Performed By: #### L 400.0001 ####[facility] [address] [place], [address] Nitrite Ql (U) Negative Normal Negative [facility] Comment on above: Order Comment: CLEAN CATCH Performed By: #### L 400.0001 ####[facility] [address] [place], [address] OCCULT BLOOD-UR 150 /ul Abnormal Negative [facility] Comment on above: Order Comment: CLEAN CATCH Performed By: #### L 400.0001 ####[facility] [address] [place], [address] pH UR 6.0 Normal 5.0 - 8.0 [facility] Comment on above: Order Comment: CLEAN CATCH Performed By: #### L 400.0001 ####[facility] [address] [place], [address] PROT DIPSTX Negative Normal Negative [facility] Comment on above: Order Comment: CLEAN CATCH Performed By: #### L 400.0001 ####[facility] [address] [place], [address] SP.GR. DIPSTX 1.025 Normal 1.002-1.030 [facility] Comment on above: Order Comment: CLEAN CATCH Performed By: #### L 400.0001 ####[facility] [address] [place], [address] UROBILI Normal Normal Normal [facility] Comment on above: Order Comment: CLEAN CATCH Performed By: #### L 400.0001 ####[facility] [address] [place], [address] EPI,SQUAMOUS 0 SEEN Normal 5-10 [facility] Comment on above: Order Comment: CLEAN CATCH Performed By: #### L 400.0001 ####[facility] [address] [place], [address] Mucus Ql (Urine sed) 0 SEEN Normal [facility] Comment on above: Order Comment: CLEAN CATCH Performed By: #### L 400.0001 ####[facility] [address] [place], [address] Bedside Glucoseon 03-05-2024 FINGERSTICK GLU 223 mg/dL High 74-106 [facility] Comment on above: Result Comment: ESPERANZA VILLALTA OF PATIENT CARE PER NURSING PROTOCOL Performed By: #### L 501.080 ####[facility] [address] [place], [address] FINGERSTICK GLU 257 mg/dL High [address] [place] [address] Comment on above: Result Comment: ESPERANZA GEMENT OF PATIENT CARE PER NURSING PROTOCOL Performed By: #### L 501.080 ####[facility] [address] [place], [address] FINGERSTICK GLU 189 mg/dL High [address] [place] [address] Comment on above: Result Comment: ESPERANZA GEMENT OF PATIENT CARE PER NURSING PROTOCOL Performed By: #### L 501.080 ####[facility] [address] [place], [address] FINGERSTICK GLU 138 mg/dL High [address] [place] [address] Comment on above: Result Comment: ESPERANZA GEMENT OF PATIENT CARE PER NURSING PROTOCOL Performed By: #### L 501.080 ####[facility] [address] [place], [address] FINGERSTICK GLU 272 mg/dL High [address] [place] [address] Comment on above: Result Comment: ESPERANZA GEMENT OF PATIENT CARE PER NURSING PROTOCOL Performed By: #### L 501.080 ####[facility] [address] [place], [address] CBC W/Diff, Automatedon 02-19 Absolute Lymph 1.15 X10 3/uL Normal 0.83-4.51 [facility] Comment on above: Performed By: #### L 501.5200, L501.9985, L500.4050, L501.9520, L100.0100 ####[facility] [address] [place], [address] Absolute Neut 4.6 X10 3/uL Normal 2.0-7.7 [facility] Comment on above: Performed By: #### L 501.5200, L501.9985, L500.4050, L501.9520, L100.0100 ####[facility] [address] [place], [address] Basophils/100 WBC (Bld) 1.1 % High 0-1 [facility] Comment on above: Performed By: #### L 501.5200, L501.9985, L500.4050, L501.9520, L100.0100 ####[facility] [address] [place], [address] Eosinophils/100 WBC (Bld) 0.2 % Normal 0-5 [facility] Comment on above: Performed By: #### L 501.5200, L501.9985, L500.4050, L501.9520, L100.0100 ####[facility] [address] [place], [address] Erythrocyte distribution width (RBC) [Ratio] 15.9 % High 11.6-14.6 [facility] Comment on above: Performed By: #### L 501.5200, L501.9985, L500.4050, L501.9520, L100.0100 ####[facility] [address] [place], [address] Hematocrit (Bld) [Volume fraction] 38.8 % Normal 37-47 [facility] Comment on above: Performed By: #### L 501.5200, L501.9985, L500.4050, L501.9520, L100.0100 ####[facility] [address] [place], [address] Hemoglobin (Bld) [Mass/Vol] 11.8 g/dL Low 12.0-15.0 [facility] Comment on above: Performed By: #### L 501.5200, L501.9985, L500.4050, L501.9520, L100.0100 ####[facility] [address] [place], [address] IG% 1.700 High 0.0-0.9 [facility] Comment on above: Result Comment: IG% - Immature Granulocytes (promyelocytes, myelocytes andmetamyelocytes) > 1% indicates that a LEFT SHIFT is Present. Performed By: #### L 501.5200, L501.9985, L500.4050, L501.9520, L100.0100 ####[facility] [address] [place], [address] Lymphocytes/100 WBC (Bld) 18.0 % Low 19-41 [facility] Comment on above: Performed By: #### L 501.5200, L501.9985, L500.4050, L501.9520, L100.0100 ####[facility] [address] [place], [address] MCH (RBC) [Entitic mass] 26.5 pg Low 27.0-32.0 [facility] Comment on above: Performed By: #### L 501.5200, L501.9985, L500.4050, L501.9520, L100.0100 ####[facility] [address] [place], [address] MCHC (RBC) [Mass/Vol] 30.4 g/dL Low 32-36 [facility] Comment on above: Performed By: #### L 501.5200, L501.9985, L500.4050, L501.9520, L100.0100 ####[facility] [address] [place], [address] MCV (RBC) [Entitic vol] 87.0 fL Normal 81-99 [facility] Comment on above: Performed By: #### L 501.5200, L501.9985, L500.4050, L501.9520, L100.0100 ####[facility] [address] [place], [address] Monocytes/100 WBC (Bld) 7.2 % Normal 0-10 [facility] Comment on above: Performed By: #### L 501.5200, L501.9985, L500.4050, L501.9520, L100.0100 ####[facility] [address] [place], [address] Neutrophils/100 WBC (Bld) 71.8 % High 47-70 [facility] Comment on above: Performed By: #### L 501.5200, L501.9985, L500.4050, L501.9520, L100.0100 ####[facility] [address] [place], [address] Nucleated RBC (Bld) [#/Vol] 0 10*3/uL Normal 0-5 [facility] Comment on above: Performed By: #### L 501.5200, L501.9985, L500.4050, L501.9520, L100.0100 ####[facility] [address] [place], [address] Platelet mean volume (Bld) [Entitic vol] 10.5 fL Normal 6.2-12.0 [facility] Comment on above: Performed By: #### L 501.5200, L501.9985, L500.4050, L501.9520, L100.0100 ####[facility] [address] [place], [address] Platelets (Bld) [#/Vol] 180 10*3/uL Normal 150-450 [facility] Comment on above: Performed By: #### L 501.5200, L501.9985, L500.4050, L501.9520, L100.0100 ####[facility] [address] [place], [address] RBC (Bld) [#/Vol] 4.46 10*6/uL Normal 4.2-5.4 [facility] Comment on above: Performed By: #### L 501.5200, L501.9985, L500.4050, L501.9520, L100.0100 ####[facility] [address] [place], [address] RDW SD 49.7 fl High 35.1-43.9 [facility] Comment on above: Performed By: #### L 501.5200, L501.9985, L500.4050, L501.9520, L100.0100 ####[facility] [address] [place], [address] WBC (Bld) [#/Vol] 6.4 10*3/uL Normal 4.4-11.0 [facility] Comment on above: Performed By: #### L 501.5200, L501.9985, L500.4050, L501.9520, L100.0100 ####[facility] [address] [place], [address] [facility] 03-05-2024 Albumin [Mass/Vol] 2.7 g/dL Low 3.2-5.0 [facility] Comment on above: Performed By: #### L 501.5200, L501.9985, L500.4050, L501.9520, L100.0100 ####[facility] [address] [place], [address] Albumin/Globulin [Mass ratio] 0.5 {ratio} Low 0.9-2.4 [facility] Comment on above: Performed By: #### L 501.5200, L501.9985, L500.4050, L501.9520, L100.0100 ####[facility] [address] [place], [address] ALK P 164 U/L High 45-117 [facility] Comment on above: Performed By: #### L 501.5200, L501.9985, L500.4050, L501.9520, L100.0100 ####[facility] [address] [place], [address] ALT [Catalytic activity/Vol] 50 U/L Normal 13-56 [facility] Comment on above: Performed By: #### L 501.5200, L501.9985, L500.4050, L501.9520, L100.0100 ####[facility] [address] [place], [address] AST [Catalytic activity/Vol] 75 U/L High 15-37 [facility] Comment on above: Performed By: #### L 501.5200, L501.9985, L500.4050, L501.9520, L100.0100 ####[facility] [address] [place], [address] Bilirubin [Mass/Vol] 0.40 mg/dL Normal 0.20-1.00 [facility] Comment on above: Result Comment: For patients on eltrombopag therapy, use of Dimension [place] TBIL is not recommended. Performed By: #### L 501.5200, L501.9985, L500.4050, L501.9520, L100.0100 ####[facility] [address] [place], [address] BUN/CRE 18.7 RATIO Normal 10-20 [facility] Comment on above: Performed By: #### L 501.5200, L501.9985, L500.4050, L501.9520, L100.0100 ####[facility] [address] [place], [address] CA,Total 8.8 mg/dL Normal 8.5-10.1 [facility] Comment on above: Performed By: #### L 501.5200, L501.9985, L500.4050, L501.9520, L100.0100 ####[facility] [address] [place], [address] Chloride [Moles/Vol] 102 mmol/L Normal 98-107 [facility] Comment on above: Performed By: #### L 501.5200, L501.9985, L500.4050, L501.9520, L100.0100 ####[facility] [address] [place], [address] CO2 [Moles/Vol] 30.0 mmol/L Normal 21.0-32.0 [facility] Comment on above: Performed By: #### L 501.5200, L501.9985, L500.4050, L501.9520, L100.0100 ####[facility] [address] [place], [address] Creatinine [Mass/Vol] 0.70 mg/dL Normal 0.55-1.02 [facility] Comment on above: Result Comment: The validity of the calculated GFR GFRAA in patients over70 years has not been determined. Clinical correlation isessential. Performed By: #### L 501.5200, L501.9985, L500.4050, L501.9520, L100.0100 ####[facility] [address] [place], [address] ECRCL 101.68 ml/min Normal [facility] Comment on above: Performed By: #### L 501.5200, L501.9985, L500.4050, L501.9520, L100.0100 ####[facility] [address] [place], [address] EST GFR - AA 112 mL/min Normal >60 [facility] Comment on above: Result Comment: Afri can Taiwanese GFR Calc Performed By: #### L 501.5200, L501.9985, L500.4050, L501.9520, L100.0100 ####[facility] [address] [place], [address] GAP 3 Low 5-15 [facility] Comment on above: Performed By: #### L 501.5200, L501.9985, L500.4050, L501.9520, L100.0100 ####[facility] [address] [place], [address] GFR/1.73 sq M.predicted among non-blacks MDRD (S/P/Bld) [Vol rate/Area] 92 mL/min/{1.73_m2} Normal >60 [facility] Comment on above: Result Comment: Non- GFR Calc Performed By: #### L 501.5200, L501.9985, L500.4050, L501.9520, L100.0100 ####[facility] [address] [place], [address] Globulin (S) [Mass/Vol] 5.6 g/dL High 2.2-4.2 [facility] Comment on above: Performed By: #### L 501.5200, L501.9985, L500.4050, L501.9520, L100.0100 ####[facility] [address] [place], [address] Glucose [Mass/Vol] 158 mg/dL High 74-106 [facility] Comment on above: Result Comment: Fast ing Glucose result greater than or equal to 126 mg/dLsuggests DIABETES MELLITUS per A.D.A. criteria. Performed By: #### L 501.5200, L501.9985, L500.4050, L501.9520, L100.0100 ####[facility] [address] [place], [address] Potassium [Moles/Vol] 4.4 mmol/L Normal 3.5-5.1 [facility] Comment on above: Performed By: #### L 501.5200, L501.9985, L500.4050, L501.9520, L100.0100 ####[facility] [address] [place], [address] Sodium [Moles/Vol] 135 mmol/L Low 136-145 [facility] Comment on above: Performed By: #### L 501.5200, L501.9985, L500.4050, L501.9520, L100.0100 ####[facility] [address] [place], [address] T PROT 8.3 g/dL High 6.4-8.2 [facility] Comment on above: Performed By: #### L 501.5200, L501.9985, L500.4050, L501.9520, L100.0100 ####[facility] [address] [place], [address] Urea nitrogen [Mass/Vol] 13 mg/dL Normal 7-18 [facility] Comment on above: Performed By: #### L 501.5200, L501.9985, L500.4050, L501.9520, L100.0100 ####[facility] [address] [place], [address] Hemoglobin A1con 03-05-2024 HbA1c (Bld) [Mass fraction] 12.8 % High 3.8-5.6 [facility] Comment on above: Result Comment: Norm al < 5.7 % Prediabetic 5.7 - 6.4 % Diabetic >or= 6.5 % Please note range changes. Performed By: #### L 501.5200, L501.9985, L500.4050, L501.9520, L100.0100 ####[facility] [address] [place], [address] Magnesiumon 03-05-2024 Magnesium [Mass/Vol] 1.8 mg/dL Normal 1.6-2.6 [facility] Comment on above: Performed By: #### L 501.5200, L501.9985, L500.4050, L501.9520, L100.0100 ####[facility] [address] [place], [address] Thyroid Stim Hormone (TSH)on 03-05-2024 TSH 5.970 uIU/mL High 0.358-3.740 [facility] Comment on above: Performed By: #### L 501.5200, L501.9985, L500.4050, L501.9520, L100.0100 ####[facility] [address] [place], [address] Urine Cultureon 03-05-2024 URC Culture exhibits no growth. Normal [facility] Comment on above: Performed By: #### M 100.2200 ####[facility] [address] [place], [address] Abdomen/Pelvis without Conto n 03-04-2024 Abdomen/Pelvis without Cont Normal [facility] BNP,B-Type NATRIURETIC PEPTI Lucila 03-04-2024 Natriuretic peptide B (Bld) [Mass/Vol] 24.0 pg/mL Normal 0-100 [facility] Comment on above: Performed By: #### L 300.4700, L503.6005, L509.7000, L300.3900, L501.3620, L300.8000, L504.2610, L503.6620, L501.6710 ####[facility] [address] [place], [address] Basic Metabolic Profile (BMP )on 03-04-2024 BUN/CRE 12.6 RATIO Normal 10-20 [facility] Comment on above: Performed By: #### L 503.6005, L501.3620, L500.3400, L500.2500, L100.0500, L501.2450 ####[facility] [address] [place], [address] CA,Total 9.4 mg/dL Normal 8.5-10.1 [facility] Comment on above: Performed By: #### L 503.6005, L501.3620, L500.3400, L500.2500, L100.0500, L501.2450 ####[facility] [address] [place], [address] Chloride [Moles/Vol] 95 mmol/L Low 98-107 [facility] Comment on above: Performed By: #### L 503.6005, L501.3620, L500.3400, L500.2500, L100.0500, L501.2450 ####[facility] [address] [place], [address] CO2 [Moles/Vol] 29.0 mmol/L Normal 21.0-32.0 [facility] Comment on above: Performed By: #### L 503.6005, L501.3620, L500.3400, L500.2500, L100.0500, L501.2450 ####[facility] [address] [place], [address] Creatinine [Mass/Vol] 0.95 mg/dL Normal 0.55-1.02 [facility] Comment on above: Result Comment: The validity of the calculated GFR GFRAA in patients over70 years has not been determined. Clinical correlation isessential. Performed By: #### L 503.6005, L501.3620, L500.3400, L500.2500, L100.0500, L501.2450 ####[facility] [address] [place], [address] ECRCL 74.68 ml/min Normal [facility] Comment on above: Performed By: #### L 503.6005, L501.3620, L500.3400, L500.2500, L100.0500, L501.2450 ####[facility] [address] [place], [address] EST GFR - AA 78 mL/min Normal >60 [facility] Comment on above: Result Comment: Afri can Taiwanese GFR Calc Performed By: #### L 503.6005, L501.3620, L500.3400, L500.2500, L100.0500, L501.2450 ####[facility] [address] [place], [address] GAP 6 Normal 5-15 [facility] Comment on above: Performed By: #### L 503.6005, L501.3620, L500.3400, L500.2500, L100.0500, L501.2450 ####[facility] [address] [place], [address] GFR/1.73 sq M.predicted among non-blacks MDRD (S/P/Bld) [Vol rate/Area] 65 mL/min/{1.73_m2} Normal >60 [facility] Comment on above: Result Comment: Non- GFR Calc Performed By: #### L 503.6005, L501.3620, L500.3400, L500.2500, L100.0500, L501.2450 ####[facility] [address] [place], [address] Glucose [Mass/Vol] 329 mg/dL High 74-106 [facility] Comment on above: Result Comment: Gluc ose result greater than or equal to 200 mg/dLsuggests DIABETES MELLITUS per A.D.A. criteria. Performed By: #### L 503.6005, L501.3620, L500.3400, L500.2500, L100.0500, L501.2450 ####[facility] [address] [place], [address] Potassium [Moles/Vol] 4.1 mmol/L Normal 3.5-5.1 [facility] Comment on above: Performed By: #### L 503.6005, L501.3620, L500.3400, L500.2500, L100.0500, L501.2450 ####[facility] [address] [place], [address] Sodium [Moles/Vol] 130 mmol/L Low 136-145 [facility] Comment on above: Performed By: #### L 503.6005, L501.3620, L500.3400, L500.2500, L100.0500, L501.2450 ####[facility] [address] [place], [address] Urea nitrogen [Mass/Vol] 12 mg/dL Normal 7-18 [facility] Comment on above: Performed By: #### L 503.6005, L501.3620, L500.3400, L500.2500, L100.0500, L501.2450 ####[facility] [address] [place], [address] Bedside Glucoseon 03-04-2024 FINGERSTICK GLU 333 mg/dL High 74-106 [facility] Comment on above: Result Comment: ESPERANZA VILLALTA OF PATIENT CARE PER NURSING PROTOCOL Performed By: #### L 501.080 ####[facility] [address] [place], [address] CBC-Complete Blood Cnt No Di ffon 03-04-2024 Erythrocyte distribution width (RBC) [Ratio] 16.1 % High 11.6-14.6 [facility] Comment on above: Performed By: #### L 503.6005, L501.3620, L500.3400, L500.2500, L100.0500, L501.2450 ####[facility] [address] [place], [address] Hematocrit (Bld) [Volume fraction] 42.7 % Normal 37-47 [facility] Comment on above: Performed By: #### L 503.6005, L501.3620, L500.3400, L500.2500, L100.0500, L501.2450 ####[facility] [address] [place], [address] Hemoglobin (Bld) [Mass/Vol] 13.5 g/dL Normal 12.0-15.0 [facility] Comment on above: Performed By: #### L 503.6005, L501.3620, L500.3400, L500.2500, L100.0500, L501.2450 ####[facility] [address] [place], [address] MCH (RBC) [Entitic mass] 26.8 pg Low 27.0-32.0 [facility] Comment on above: Performed By: #### L 503.6005, L501.3620, L500.3400, L500.2500, L100.0500, L501.2450 ####[facility] [address] [place], [address] MCHC (RBC) [Mass/Vol] 31.6 g/dL Low 32-36 [facility] Comment on above: Performed By: #### L 503.6005, L501.3620, L500.3400, L500.2500, L100.0500, L501.2450 ####[facility] [address] [place], [address] MCV (RBC) [Entitic vol] 84.7 fL Normal 81-99 [facility] Comment on above: Performed By: #### L 503.6005, L501.3620, L500.3400, L500.2500, L100.0500, L501.2450 ####[facility] [address] [place], [address] Platelet mean volume (Bld) [Entitic vol] 10.9 fL Normal 6.2-12.0 [facility] Comment on above: Performed By: #### L 503.6005, L501.3620, L500.3400, L500.2500, L100.0500, L501.2450 ####[facility] [address] [place], [address] Platelets (Bld) [#/Vol] 231 10*3/uL Normal 150-450 [facility] Comment on above: Performed By: #### L 503.6005, L501.3620, L500.3400, L500.2500, L100.0500, L501.2450 ####[facility] [address] [place], [address] RBC (Bld) [#/Vol] 5.04 10*6/uL Normal 4.2-5.4 [facility] Comment on above: Performed By: #### L 503.6005, L501.3620, L500.3400, L500.2500, L100.0500, L501.2450 ####[facility] [address] [place], [address] RDW SD 48.9 fl High 35.1-43.9 [facility] Comment on above: Performed By: #### L 503.6005, L501.3620, L500.3400, L500.2500, L100.0500, L501.2450 ####[facility] [address] [place], [address] WBC (Bld) [#/Vol] 7.4 10*3/uL Normal 4.4-11.0 [facility] Comment on above: Performed By: #### L 503.6005, L501.3620, L500.3400, L500.2500, L100.0500, L501.2450 ####[facility] [address] [place], [address] CPK Total, Creatine Kinaseon 03-04-2024 CPK TOTAL 135 U/L Normal 26-192 [facility] Comment on above: Performed By: #### L 300.4700, L503.6005, L509.7000, L300.3900, L501.3620, L300.8000, L504.2610, L503.6620, L501.6710 ####[facility] [address] [place], [place], [address] CPK TOTAL 148 U/L Normal 26-192 [facility] Comment on above: Performed By: #### L 503.6005, L501.3620, L500.3400, L500.2500, L100.0500, L501.2450 ####[facility] [address] [place], [place], [address] CRPon 03-04-2024 C-REACTIVE PROT 28.80 mg/L High 0.0-3.0 [facility] Comment on above: Result Comment: C-Re active Protein (CRP) provides useful information for thediagnosis, therapy and monitoring of inflammatory processesand associated diseases. For the evaluation of Relative Riskfor Cardiovascular Disease, a High Sensitivity CRP (HSCRP)should be ordered. Performed By: #### L 300.4700, L503.6005, L509.7000, L300.3900, L501.3620, L300.8000, L504.2610, L503.6620, L501.6710 ####[facility] [address] [place], [place], [address] Chest 1 View (Portable)on Chest 1 View (Portable) Normal [facility] D-Dimer Quantitative (DVT/PE )on 03-04-2024 D-DIMER QUANT 0.39 FEU/ug/m Normal 0.27-0.49 [facility] Comment on above: Result Comment: NORM AL D-Dimer level (<0.50) indicates no DVT or PE. Performed By: #### L 300.4700, L503.6005, L509.7000, L300.3900, L501.3620, L300.8000, L504.2610, L503.6620, L501.6710 ####[facility] [address] [place], [address] Emergency Department Summary on 03-04-2024 Emergency Department Summary Normal [facility] Fibrinogenon 03-04-2024 FIBRINOGEN 444 mg/dl Normal 203-444 [facility] Comment on above: Performed By: #### L 300.4700, L503.6005, L509.7000, L300.3900, L501.3620, L300.8000, L504.2610, L503.6620, L501.6710 ####[facility] [address] [place], [address] H AND P Exam - Hospitaliston 03-04-2024 H&P Exam - Hospitalist Normal [facility] LDHon 03-04-2024 LDH 199 U/L Normal 84-246 [facility] Comment on above: Performed By: #### L 300.4700, L503.6005, L509.7000, L300.3900, L501.3620, L300.8000, L504.2610, L503.6620, L501.6710 ####[facility] [address] [place], [address] Lactic Acidon 03-04-2024 Lactate [Moles/Vol] 1.6 mmol/L Normal 0.4-1.9 [facility] Comment on above: Order Comment: Y Performed By: #### L 300.4700, L503.6005, L509.7000, L300.3900, L501.3620, L300.8000, L504.2610, L503.6620, L501.6710 ####[facility] [address] [place], [address] Lactate [Moles/Vol] 1.5 mmol/L Normal 0.4-1.9 [facility] Comment on above: Order Comment: Y Performed By: #### L 503.6005, L501.3620, L500.3400, L500.2500, L100.0500, L501.2450 ####[facility] [address] [place], [address] Lipaseon 03-04-2024 Lipase [Catalytic activity/Vol] 59 U/L Normal 13-75 [facility] Comment on above: Result Comment: Ronnie mcleod note:LIPASE revised reference range effective 22.New Lipase methodology. Expected to produce lower valuesthan the previous assay method.NEW Reference Range: 13 - 75 U/L Performed By: #### L 503.6005, L501.3620, L500.3400, L500.2500, L100.0500, L501.2450 ####[facility] [address] [place], [address] Liver Profileon 03-04-2024 Albumin [Mass/Vol] 3.2 g/dL Normal 3.2-5.0 [facility] Comment on above: Performed By: #### L 503.6005, L501.3620, L500.3400, L500.2500, L100.0500, L501.2450 ####[facility] [address] [place], [address] ALK P 237 U/L High 45-117 [facility] Comment on above: Performed By: #### L 503.6005, L501.3620, L500.3400, L500.2500, L100.0500, L501.2450 ####[facility] [address] [place], [address] ALT [Catalytic activity/Vol] 43 U/L Normal 13-56 [facility] Comment on above: Performed By: #### L 503.6005, L501.3620, L500.3400, L500.2500, L100.0500, L501.2450 ####[facility] [address] [place], [address] AST [Catalytic activity/Vol] 57 U/L High 15-37 [facility] Comment on above: Performed By: #### L 503.6005, L501.3620, L500.3400, L500.2500, L100.0500, L501.2450 ####[facility] [address] [place], [address] Bilirubin [Mass/Vol] 0.90 mg/dL Normal 0.20-1.00 [facility] Comment on above: Result Comment: For patients on eltrombopag therapy, use of Dimension [place] TBIL is not recommended. Performed By: #### L 503.6005, L501.3620, L500.3400, L500.2500, L100.0500, L501.2450 ####[facility] [address] [place], [address] Bilirubin.direct [Mass/Vol] 0.25 mg/dL Normal 0.00-0.30 [facility] Comment on above: Performed By: #### L 503.6005, L501.3620, L500.3400, L500.2500, L100.0500, L501.2450 ####[facility] [address] [place], [address] Globulin (S) [Mass/Vol] 6.1 g/dL High 2.2-4.2 [facility] Comment on above: Performed By: #### L 503.6005, L501.3620, L500.3400, L500.2500, L100.0500, L501.2450 ####[facility] [address] [place], [address] T PROT 9.3 g/dL High 6.4-8.2 [facility] Comment on above: Performed By: #### L 503.6005, L501.3620, L500.3400, L500.2500, L100.0500, L501.2450 ####[facility] [address] [place], [address] M100.678on 03-04-2024 M100.678 Normal [facility] Comment on above: Performed By: #### M 100.678 ####[facility] [address] [place], [place], [address] Procalcitoninon 03-04-2024 Procalcitonin 0.10 ng/mL High 0.00-0.09 [facility] Comment on above: Result Comment: A pr ocalcitonin (PCT) level above 2.0 ng/mL on the first day of ICU admission is associated with a high risk for progression to severe sepsis and/or septic shock. A PCT level below 0.5 ng/mL on the first day of ICU admission is associated with a low risk for progression to severe and/or septic shock. Note: Concentrations <0.5 ng/mL do not exclude an infection on account of localized infections (without systemic signs) which can be associated with such low concentrations, or a systemic infection in its initial stages (<6 hours). Furthermore, increased procalcitonin can occur without infection. PCT concentrations between 0.5 and 2.0 ng/mL should be interpreted taking into account the patient's history. It is recommended to retest PCT within 6-24 hours if any concentrations <2 ng/mL are obtained. Performed By: #### L 300.4700, L503.6005, L509.7000, L300.3900, L501.3620, L300.8000, L504.2610, L503.6620, L501.6710 ####[facility] [address] [place], [place], [address] Prothrombin Time w/INRon INR Coag (PPP) [Relative time] 1.2 {INR} Normal [facility] Comment on above: Performed By: #### L 300.4700, L503.6005, L509.7000, L300.3900, L501.3620, L300.8000, L504.2610, L503.6620, L501.6710 ####[facility] [address], [address] PT Coag (PPP) [Time] 15.3 s High 11.7-14.9 [facility] Comment on above: Performed By: #### L 300.4700, L503.6005, L509.7000, L300.3900, L501.3620, L300.8000, L504.2610, L503.6620, L501.6710 ####[facility] [address] [place], [address] Urinalysis, Completeon 03-04 EPI,SQUAMOUS 5-10 SEEN Normal 5-10 [facility] Comment on above: Order Comment: TESSIE CTOR TO SPECIFY Performed By: #### L 400.0001 ####[facility] [address] [place], [address] BACTERIA 1+ /hpf Normal None Seen [facility] Comment on above: Order Comment: TESSIE CTOR TO SPECIFY Performed By: #### L 400.0001 ####[facility] [address] [place], [address] WBC >100 SEEN Normal 0-5 [facility] Comment on above: Order Comment: TESSIE CTOR TO SPECIFY Performed By: #### L 400.0001 ####[facility] [address] [place], [address] YEAST 3+ /hpf Normal None Seen [facility] Comment on above: Order Comment: TESSIE CTOR TO SPECIFY Performed By: #### L 400.0001 ####[facility] [address] [place], [address] Mucus Ql (Urine sed) 0 SEEN Normal [facility] Comment on above: Order Comment: TESSIE CTOR TO SPECIFY Performed By: #### L 400.0001 ####[facility] [address] [place], [address] RBC 0 SEEN Normal 0-5 [facility] Comment on above: Order Comment: COLLE CTOR TO SPECIFY Performed By: #### L 400.0001 ####[facility] [address] [place], [address] .GFRon 03-02-2024 GFR Non- 75 ml/min/1.73sqm Normal [facility] [place] Comment on above: Result Comment: GFR Population mean for , Non- Americans Ages 20-29 = 116 mL/min/1.73 sq.m. Ages 30-39 = 107 mL/min/1.73 sq.m. Ages 40-49 = 99 mL/min/1.73 sq.m. Ages 50-59 = 93 mL/min/1.73 sq.m. Ages 60-69 = 85 mL/min/1.73 sq.m. Ages 70+ = 75 mL/min/1.73 sq.m. Chronic Kidney Disease: Less than 60 mL/min/1.73 square meters End Stage Renal Disease: Less than 15 mL/min/1.73 square meters Performed By: #### T GIOVANNA, CMP, GFR #### [place] [address] [address] GFR 91 ml/min/1.73sqm Normal [facility] Comment on above: Result Comment: GFR Population mean for , Non- Americans Ages 20-29 = 116 mL/min/1.73 sq.m. Ages 30-39 = 107 mL/min/1.73 sq.m. Ages 40-49 = 99 mL/min/1.73 sq.m. Ages 50-59 = 93 mL/min/1.73 sq.m. Ages 60-69 = 85 mL/min/1.73 sq.m. Ages 70+ = 75 mL/min/1.73 sq.m. Chronic Kidney Disease: Less than 60 mL/min/1.73 square meters End Stage Renal Disease: Less than 15 mL/min/1.73 square meters Performed By: #### T SH, CMP, GFR #### [place] [address] [address] CMPon 03-02-2024 Albumin Level 3.0 G/dL Low 3.5-5.0 [facility] Comment on above: Performed By: #### T SH, CMP, GFR #### [address] [address] Albumin/Globulin [Mass ratio] 0.6 {ratio} Low 1.1-2.5 [facility] Comment on above: Performed By: #### T SH, CMP, GFR #### [address] [address] ALP [Catalytic activity/Vol] 216 U/L High 40-135 [facility] Comment on above: Performed By: #### T SH, CMP, GFR #### [address] [address] ALT [Catalytic activity/Vol] 34 U/L Normal 14-59 [facility] Comment on above: Performed By: #### T SH, CMP, GFR #### [address] [address] AST [Catalytic activity/Vol] 27 U/L Normal 10-40 [facility] Comment on above: Performed By: #### T GIOVANNA, CMP, GFR #### [address] [address] Bili Total 0.7 mg/dL Normal 0.2-1.0 [facility] Comment on above: Result Comment: Use of this assay is not recommended for patients undergoing treatment with eltrombopag due to the potential for falsely elevated results. Performed By: #### T SH, CMP, GFR #### [address] [address] BUN/Creatinine Ratio 13 ratio Normal 7-27 [facility] ([place] Comment on above: Performed By: #### T SH, CMP, GFR #### [address] [address] Calcium [Mass/Vol] 9.4 mg/dL Normal 8.4-10.2 [facility] ([place]) Comment on above: Performed By: #### T SH, CMP, GFR #### [address] [address] Chloride [Moles/Vol] 93 mmol/L Low 98-107 [facility] ([place]) Comment on above: Performed By: #### T GIOVANNA, CMP, GFR #### [address] [address] CO2 [Moles/Vol] 33 mmol/L High 22-29 [facility] ([place]) Comment on above: Performed By: #### T GIOVANNA, CMP, GFR #### [address] [address] Creatinine [Mass/Vol] 0.79 mg/dL Normal 0.55-1.02 [facility] ([place]) Comment on above: Performed By: #### T GIOVANNA CMP, GFR #### [address] [address] Electrolyte Balance 3.0 mEq/L Low 4.0-15.0 [facility] ([place]) Comment on above: Performed By: #### T GIOVANNA, CMP, GFR #### [address] [address] Globulin 5.0 G/dL Normal [facility] ([place] Comment on above: Performed By: #### T GIOVANNA CMP, GFR #### [address] [address] Glucose [Mass/Vol] 484 mg/dL Critically abnormal 70-105 [facility] ([place] Comment on above: Performed By: #### T GIOVANNA, CMP, GFR #### [address] [address] Potassium [Moles/Vol] 4.8 mmol/L Normal 3.5-5.1 [facility] ([place] Comment on above: Performed By: #### T GIOVANNA, CMP, GFR #### [address] [address] Sodium [Moles/Vol] 129 mmol/L Low 136-145 [facility] ([place] Comment on above: Performed By: #### T GIOVANNA, CMP, GFR #### [address] [address] Total Protein 8.0 G/dL Normal 6.4-8.2 [facility] ([place] Comment on above: Performed By: #### T SH, CMP, GFR #### [id number] [place], [place] [address] Urea nitrogen [Mass/Vol] 10 mg/dL Normal 7-18 [facility] ([place] Comment on above: Performed By: #### T SH, CMP, GFR #### [address] [place], [place] [address] LABORATORYOrdered By: SYSTEM SYSTEM on 03-02-2024 Albumin BCP dye [Mass/Vol] 3.0 G/dL Low 3.5 - 5.0 G/dL AO ADM SS Albumin/Globulin [Mass ratio] 0.6 {ratio} Low 1.1 - 2.5 ratio AO ADM SS ALP [Catalytic activity/Vol] 216 U/L High 40 - 135 U/L AO ADM SS ALT With P-5'-P [Catalytic activity/Vol] 34 U/L Normal 14 - 59 U/L AO ADM SS AST With P-5'-P [Catalytic activity/Vol] 27 U/L Normal 10 - 40 U/L AO ADM SS Bilirubin [Mass/Vol] 0.7 mg/dL Normal 0.2 - 1 .0 mg/dL AO ADM SS Comment on above: Interpretive Data: U se of this assay is not recommended for patients undergoing treatment with eltrombopag due to the potential for falsely elevated results. Calcium [Mass/Vol] 9.4 mg/dL Normal 8.4 - 10. 2 mg/dL AO ADM SS Chloride [Moles/Vol] 93 mmol/L Low 98 - 10 7 mmol/L AO ADM SS CO2 [Moles/Vol] 33 mmol/L High 22 - 29 mmol/L AO ADM SS Creatinine [Mass/Vol] 0.79 mg/dL Normal 0.55 - 1.02 mg/dL AO ADM SS Electrolyte Balance 3.0 mEq/L Low 4.0 - 15 .0 mEq/L AO ADM SS GFR/1.73 sq M.predicted among blacks MDRD (S/P/Bld) [Vol rate/Area] 91 ml/min/1.73sqm Invalid Interpretation Code AO Chemistry S Comment on above: Interpretive Data: GFR Population mean for , Non- Americans Ages 20-29 = 116 mL/min/1.73 sq.m. Ages 30-39 = 107 mL/min/1.73 sq.m. Ages 40-49 = 99 mL/min/1.73 sq.m. Ages 50-59 = 93 mL/min/1.73 sq.m. Ages 60-69 = 85 mL/min/1.73 sq.m. Ages 70+ = 75 mL/min/1.73 sq.m. Chronic Kidney Disease: Less than 60 mL/min/1.73 square meters End Stage Renal Disease: Less than 15 mL/min/1.73 square meters GFR/1.73 sq M.predicted among non-blacks MDRD (S/P/Bld) [Vol rate/Area] 75 ml/min/1.73sqm Invalid Interpretation Code AO Chemistry S Comment on above: Interpretive Data: GFR Population mean for , Non- Americans Ages 20-29 = 116 mL/min/1.73 sq.m. Ages 30-39 = 107 mL/min/1.73 sq.m. Ages 40-49 = 99 mL/min/1.73 sq.m. Ages 50-59 = 93 mL/min/1.73 sq.m. Ages 60-69 = 85 mL/min/1.73 sq.m. Ages 70+ = 75 mL/min/1.73 sq.m. Chronic Kidney Disease: Less than 60 mL/min/1.73 square meters End Stage Renal Disease: Less than 15 mL/min/1.73 square meters Globulin 5.0 G/dL Invalid Interpretation Code AO ADM SS Glucose [Mass/Vol] 484 mg/dL Invalid Interpretation Code 70 - 105 mg/dL AO ADM SS Potassium [Moles/Vol] 4.8 mmol/L Normal 3.5 - 5.1 mmol/L AO ADM SS Protein [Mass/Vol] 8.0 G/dL Normal 6.4 - 8.2 G/dL AO ADM SS Sodium [Moles/Vol] 129 mmol/L Low 136 - 145 mmol/L AO ADM SS TSH Qn 37.38 m[IU]/L High 0.36 - 3.74 mcIU/mL AO ADM SS Urea nitrogen [Mass/Vol] 10 mg/dL Normal 7 - 18 mg/dL AO ADM SS Urea nitrogen/Creatinine [Mass ratio] 13 ratio Normal 7 - 27 ratio AO ADM SS TSHon 03-02-2024 TSH Qn 37.38 m[IU]/L High 0.36-3.74 [facility] ([place]) Comment on above: Performed By: #### T SH, CMP, GFR #### [address] [address] .Auto Diffon 02-25-2024 Basophil, Absolute 0.1 10 3/mcL Normal 0.0-0.2 [facility] ([place]) Comment on above: Performed By: #### C MP, GFR, CBC, RAVEN LEDESMA MDW #### [address] [address] Basophils/100 WBC (Bld) 1.1 % Normal 0.0-2.5 [facility] ([place]) Comment on above: Performed By: #### C MP, GFR, CBC, ADRAVEN HUFF MDW #### [address] [address] Eosinophil, Absolute 0.2 10 3/mcL Normal 0.0-0.4 [facility] ([place]) Comment on above: Performed By: #### C MP, GFR, CBC, RAVEN LEDESMA MDW #### [address] [address] Eosinophils/100 WBC (Bld) 2.0 % Normal 0.0-7.0 [facility] ([place] Comment on above: Performed By: #### C MP, GFR, CBC, ADRAVEN HUFF MDW #### [address] [address] Lymphocyte, Absolute 2.1 10 3/mcL Normal 0.8-3.9 [facility] ([place]) Comment on above: Performed By: #### C MP, GFR, CBC, ADRAVEN HUFF MDW #### [address] [address] Lymphocytes/100 WBC (Bld) 18.0 % Normal 10.0-50.0 [facility] ([place] Comment on above: Performed By: #### C MP, GFR, CBC, ADRAVEN HUFF MDW #### [address] [address] Monocyte, Absolute 0.5 10 3/mcL Normal 0.2-1.0 [facility] ([place] Comment on above: Performed By: #### C MP, GFR, CBC, ADRAVEN HUFF MDW #### [address] [address] Monocytes/100 WBC (Bld) 4.6 % Normal 1.7-13.0 [facility] ([place] Comment on above: Performed By: #### C MP, GFR, CBC, ADRAVEN HUFF MDW #### [address] [address] Neutrophils/100 WBC (Bld) 74.3 % Normal 37.0-80.0 [facility] ([place] Comment on above: Performed By: #### C MP, GFR, CBC, ADIFFRAVEN MDW #### [address] [address] .GFRon 02-25-2024 GFR 79 ml/min/1.73sqm Normal [facility] ([place] Comment on above: Result Comment: GFR Population mean for , Non- Americans Ages 20-29 = 116 mL/min/1.73 sq.m. Ages 30-39 = 107 mL/min/1.73 sq.m. Ages 40-49 = 99 mL/min/1.73 sq.m. Ages 50-59 = 93 mL/min/1.73 sq.m. Ages 60-69 = 85 mL/min/1.73 sq.m. Ages 70+ = 75 mL/min/1.73 sq.m. Chronic Kidney Disease: Less than 60 mL/min/1.73 square meters End Stage Renal Disease: Less than 15 mL/min/1.73 square meters Performed By: #### C MP, GFR, CBC, ADIFF, SATURNINO CARBAJAL #### [address] [address] GFR Non- 65 ml/min/1.73sqm Normal [facility] ([place] Comment on above: Result Comment: GFR Population mean for , Non- Americans Ages 20-29 = 116 mL/min/1.73 sq.m. Ages 30-39 = 107 mL/min/1.73 sq.m. Ages 40-49 = 99 mL/min/1.73 sq.m. Ages 50-59 = 93 mL/min/1.73 sq.m. Ages 60-69 = 85 mL/min/1.73 sq.m. Ages 70+ = 75 mL/min/1.73 sq.m. Chronic Kidney Disease: Less than 60 mL/min/1.73 square meters End Stage Renal Disease: Less than 15 mL/min/1.73 square meters Performed By: #### C MP, GFR, CBC, RAVEN LEDESMA MDW #### [place] [address] .MDWon 02-25-2024 Monocyte Distribution Width 20.84 High 0.00-20.00 [facility] ([place] Comment on above: Result Comment: For adults in ED, MDW>20.0 may be associated with a higher risk of sepsis during the first 12hrs of hospital admission Performed By: #### C MP, GFR, CBC, RAVEN LEDESMA MDW #### [place] [address] .NEUABSon 02-25-2024 Neutrophil, Absolute 8.7 10 3/mcL High 2.9-6.2 [facility] ([place] Comment on above: Performed By: #### C MP, GFR, CBC, RAVEN ELDESMA MDW #### [place] [address] .Urinalysis Microscopic (AO) on 02-25-2024 UA Bacteria 3+ /hpf Abnormal [facility] ([place] Comment on above: Performed By: #### T SH, CMP, GFR #### [place] [address] UA RBC LOADED Abnormal None Seen [facility] ([place] Comment on above: Performed By: #### T SH, CMP, GFR #### [address] [address] UA Squam Epithelial 5-10 Abnormal None Seen [facility] ([place] Comment on above: Performed By: #### T SH, CMP, GFR #### [address] [address] UA WBC LOADED Abnormal None Seen [facility] [place] Comment on above: Performed By: #### T SH, CMP, GFR #### [place] [address] ACTONon 02-25-2024 Acetone (s) Negative Normal Negative [facility] ([place] Comment on above: Performed By: #### C MP, GFR, CBC, RAVEN LEDESMA MDW #### [place] [address] CBCon 02-25-2024 Erythrocyte distribution width (RBC) [Ratio] 16.8 % High 11.5-14.5 [facility] ([place] Comment on above: Performed By: #### C MP, GFR, CBC, RAVEN LEDESMA MDW #### [place] [address] Hematocrit (Bld) [Volume fraction] 41.7 % Normal 37.0-47.0 [facility] ([place] Comment on above: Performed By: #### C MP, GFR, CBC, RAVEN LEDESMA MDW #### [place] [address] Hgb 13.3 G/dL Normal 12.0-16.0 [facility] ([place] Comment on above: Performed By: #### C MP, GFR, CBC, RAVEN LEDESMA MDW #### [place] [address] MCH (RBC) [Entitic mass] 27.3 pg Normal 27.0-31.2 [facility] ([place] Comment on above: Performed By: #### C MP, GFR, CBC, RAVEN LEDESMA MDW #### [place] [id number] MCHC 31.9 G/dL Low 33.0-37.0 [facility] ([place] Comment on above: Performed By: #### C MP, GFR, CBC, RAVEN LEDESMA MDW #### [address] [address] MCV (RBC) [Entitic vol] 85.8 fL Normal 80.0-94.0 [facility] ([place] Comment on above: Performed By: #### C MP, GFR, CBC, RAVEN LEDESMA MDW #### [address] [address] Platelet 210 10 3/mcL Normal 130-400 [facility] [place] Comment on above: Performed By: #### C MP, GFR, CBC, RAVEN LEDESMA MDW #### [address] [address] Platelet mean volume (Bld) [Entitic vol] 8.5 fL Normal 7.4-10.4 [facility] ([place] Comment on above: Performed By: #### C MP, GFR, CBC, RAVEN LEDESMA MDW #### [address] [address] RBC 4.86 10 6/mcL Normal 4.20-5.40 [facility] ([place] Comment on above: Performed By: #### C MP, GFR, CBC, RAVEN LEDESMA MDW #### [address] [address] WBC 11.7 10 3/mcL High 4.6-10.8 [facility] ([place] Comment on above: Performed By: #### C MP, GFR, CBC, RAVEN LEDESMA MDW #### [address] [address] CMPon 02-25-2024 Albumin Level 3.2 G/dL Low 3.5-5.0 [facility] ([place] Comment on above: Performed By: #### C MP, GFR, CBC, RAVEN LEDESMA MDW #### [address] [address] Albumin/Globulin [Mass ratio] 0.6 {ratio} Low 1.1-2.5 [facility] ([place] Comment on above: Performed By: #### C MP, GFR, CBC, RAVEN LEDESMA MDW #### [address] [address] ALP [Catalytic activity/Vol] 240 U/L High 40-135 [facility] ([place] Comment on above: Performed By: #### C MP, GFR, CBC, RAVEN LEDESMA MDW #### [address] [address] ALT [Catalytic activity/Vol] 41 U/L Normal 14-59 [facility] ([place] Comment on above: Performed By: #### C MP, GFR, CBC, RAVEN LEDESMA MDW #### [address] [address] AST [Catalytic activity/Vol] 45 U/L High 10-40 [facility] ([place] Comment on above: Performed By: #### C MP, GFR, CBC, RAVEN LEDESMA MDW #### [address] [address] Bili Total 0.8 mg/dL Normal 0.2-1.0 [facility] ([place] Comment on above: Result Comment: Use of this assay is not recommended for patients undergoing treatment with eltrombopag due to the potential for falsely elevated results. Performed By: #### C MP, GFR, CBC, RAVEN LEDESMA MDW #### [address] [address] BUN/Creatinine Ratio 10 ratio Normal 7-27 [facility] ([place] Comment on above: Performed By: #### C MP, GFR, CBC, RAVEN LEDESMA MDW #### [address] [address] Calcium [Mass/Vol] 8.9 mg/dL Normal 8.4-10.2 [facility] ([place] Comment on above: Performed By: #### C MP, GFR, CBC, RAVEN LEDESMA MDW #### [address] [address] Chloride [Moles/Vol] 90 mmol/L Low 98-107 [facility] ([place] Comment on above: Performed By: #### C MP, GFR, CBC, RAVEN LEDESMA MDW #### [address] [address] CO2 [Moles/Vol] 31 mmol/L High 22-29 [facility] ([place] Comment on above: Performed By: #### C MP, GFR, CBC, RAVEN LEDESMA MDW #### [address] [address] Creatinine [Mass/Vol] 0.89 mg/dL Normal 0.55-1.02 [facility] ([place] Comment on above: Performed By: #### C MP, GFR, CBC, RAVEN LEDESMA MDW #### [address] [address] Electrolyte Balance 7.0 mEq/L Normal 4.0-15.0 [facility] ([place] Comment on above: Performed By: #### C MP, GFR, CBCBALTAZAR ANEU, MDW #### [address] [address] Globulin 5.5 G/dL Normal [facility] ([place] Comment on above: Performed By: #### C MP, GFR, CBC, RAVEN LEDESMA MDW #### [address] [address] Glucose [Mass/Vol] 654 mg/dL Critically abnormal 70-105 [facility] [place] Comment on above: Performed By: #### C MP, GFR, CBCBALTAZAR ANEU, MDW #### [address] [address] Potassium [Moles/Vol] 4.8 mmol/L Normal 3.5-5.1 [facility] ([place]) Comment on above: Performed By: #### C MP, GFR, CBCBALTAZAR ANEU, MDW #### [facility] [address] [place], [place] [address] Sodium [Moles/Vol] 128 mmol/L Low 136-145 [facility] ([place] Comment on above: Performed By: #### C MP, GFR, CBC, RAVEN LEDESMA MDW #### [address] [place], [place] [address] Total Protein 8.7 G/dL High 6.4-8.2 [facility] ([place] Comment on above: Performed By: #### C MP, GFR, CBC, RAVEN LEDESMA MDW #### [address] [place], [place] [address] Urea nitrogen [Mass/Vol] 9 mg/dL Normal 7-18 [facility] ([place] Comment on above: Performed By: #### C MP, GFR, CBC, RAVEN LEDESMA MDW #### [address] [place], [place] [address] CT ABD/PELVIS W/ IV CONTRAST ONLYon 02-25-2024 CT ABD/PELVIS W/ IV CONTRAST ONLY ORIGINAL EXAMINATION: CT OF THE ABDOMEN AND PELVIS WITH CONTRAST 02/25/2024 11:19 am TECHNIQUE: CT of the abdomen and pelvis was performed with the administration of intravenous contrast. Multiplanar reformatted images are provided for review. Automated exposure control, iterative reconstruction, and/or weight based adjustment of the mA/kV was utilized to reduce the radiation dose to as low as reasonably achievable. COMPARISON: June 08, 2023 HISTORY: ORDERING SYSTEM PROVIDED HISTORY: Reason for Exam: right abdominal pain FINDINGS: Minor degenerative changes are noted in the spine. No other osseous abnormality is evident. Cholecystectomy clips are present. Liver, spleen, adrenal glands and pancreas are unremarkable. Punctate 2 mm stone is evident at the left mid pole kidney. Additionally, there is a nonobstructing stone at the proximal portion of the left ureter. No other renal finding.. A borderline gastro hepatic ligament lymph node is evident, fairly similar to the previous exam. No adenopathy is evident. No free air or free fluid seen. Solid pelvic organs and urinary bladder are grossly normal. An IUD is noted in place. No GI tract abnormality is visible. No additional contributory abnormality seen. IMPRESSION: 1. Punctate left nephrolithiasis. 2. Nonobstructing 3 mm stone at the proximal left ureter. 3. No other acute abnormality identified. Interpreted by: Josef Nicholson MD Preliminary Report By: Josef Nicholson MD Electronically signed By Josef Nicholson MD Dictated Date: 02/25/2024 11:56:07 AM Prelim Date: 02/25/2024 12:00:15 PM Sign Date: 02/25/2024 12:00:15 PM Ordering Provider: URSULA Epstein [facility] ([place] LABORATORYOrdered By: Nazanin Recio on 02-25-2024 Glucose [Mass/Vol] 334 mg/dL High 70 - 110 mg/dL [facility] Work Phone: Glucose [Mass/Vol] 432 mg/dL Invalid Interpretation Code 70 - 110 mg/dL [facility] Work Phone: Glucose [Mass/Vol] 532 mg/dL Invalid Interpretation Code 70 - 110 mg/dL [facility] Work Phone: LABORATORYOrdered By: Arden Patel on 02-25-2024 Ketones [Mass/Vol] Negative Normal Negative AO Rap id Testing SS Appearance (U) Slightly Cloudy *ABN* (02/25/24 9:25 AM) Invalid Interpretation Code Clear AO Auto Urine SS Bacteria LM.HPF (Urine sed) [#/Area] 3 /[HPF] Invalid Interpretation Code AO Auto Urine SS Bilirubin Ql (U) Negative (02/25/24 9:25 AM) Normal Negative AO Auto Urine SS Color (U) Yellow (02/25/24 9:25 AM) Normal AO Auto Urine SS Glucose Test strip (U) [Mass/Vol] >=1000 mg/dL Invalid Interpretation Code Negative AO Auto Urine SS Hemoglobin Auto test strip (U) [Mass/Vol] Moderate *ABN* (02/25/24 9:25 AM) Invalid Interpretation Code Negative AO Auto Urine SS Ketones Ql (U) Negative Normal Negative AO Auto Urine SS UA Leuk Est Trace *ABN* (02/25/24 9:25 AM) Invalid Interpretation Code Negative AO Auto Urine SS UA Nitrite Negative (02/25/24 9:25 AM) Normal Negative AO Auto Urine SS UA pH 6.0 (02/25/24 9:25 AM) Normal 5.0 - 8.0 AO Auto Urine SS UA Protein Negative Normal Negative AO Auto Urine SS UA RBC LOADED /HPF Invalid Interpretation Code None Seen AO Auto Urine SS UA Spec Grav 1.010 *ABN* (02/25/24 9:25 AM) Invalid Interpretation Code 1.015-1.025 AO Auto Urine SS UA Specimen Type Clean Catch (02/25/24 9:25 AM) Normal AO Auto Urine SS UA Squam Epithelial 5-10 /HPF Invalid Interpretation Code None Seen AO Auto Urine SS UA Urobilinogen 0.2 E.U./dL Normal 0.2-1.0 AO Auto Urine SS WBC LM.HPF (Urine sed) [#/Area] LOADED /HPF Invalid Interpretation Code None Seen AO Auto Urine SS LABORATORYOrdered By: SYSTEM SYSTEM on 02-25-2024 Albumin BCP dye [Mass/Vol] 3.2 G/dL Low 3.5 - 5.0 G/dL AO ADM SS Albumin/Globulin [Mass ratio] 0.6 {ratio} Low 1.1 - 2.5 ratio AO ADM SS ALP [Catalytic activity/Vol] 240 U/L High 40 - 135 U/L AO ADM SS ALT With P-5'-P [Catalytic activity/Vol] 41 U/L Normal 14 - 59 U/L AO ADM SS AST With P-5'-P [Catalytic activity/Vol] 45 U/L High 10 - 40 U/L AO ADM SS Basophil, Absolute 0.1 103/mcL Normal 0.0 - 0.2 10^3/mcL AO Workflow SS Basophils/100 WBC (Bld) 1.1 % Normal 0.0 - 2.5 % AO Workflow SS Bilirubin [Mass/Vol] 0.8 mg/dL Normal 0.2 - 1 .0 mg/dL AO ADM SS Comment on above: Interpretive Data: U se of this assay is not recommended for patients undergoing treatment with eltrombopag due to the potential for falsely elevated results. Calcium [Mass/Vol] 8.9 mg/dL Normal 8.4 - 10. 2 mg/dL AO ADM SS Chloride [Moles/Vol] 90 mmol/L Low 98 - 10 7 mmol/L AO ADM SS CO2 [Moles/Vol] 31 mmol/L High 22 - 29 mmol/L AO ADM SS Creatinine [Mass/Vol] 0.89 mg/dL Normal 0.55 - 1.02 mg/dL AO ADM SS Electrolyte Balance 7.0 mEq/L Normal 4.0 - 15 .0 mEq/L AO ADM SS Eosinophil, Absolute 0.2 103/mcL Normal 0.0 - 0 .4 10^3/mcL AO Workflow SS Eosinophils/100 WBC (Bld) 2.0 % Normal 0.0 - 7.0 % AO Workflow SS Erythrocyte distribution width (RBC) [Ratio] 16.8 % High 11.5 - 14.5 % AO Workflow SS GFR/1.73 sq M.predicted among blacks MDRD (S/P/Bld) [Vol rate/Area] 79 ml/min/1.73sqm Invalid Interpretation Code AO Chemistry S Comment on above: Interpretive Data: GFR Population mean for , Non- Americans Ages 20-29 = 116 mL/min/1.73 sq.m. Ages 30-39 = 107 mL/min/1.73 sq.m. Ages 40-49 = 99 mL/min/1.73 sq.m. Ages 50-59 = 93 mL/min/1.73 sq.m. Ages 60-69 = 85 mL/min/1.73 sq.m. Ages 70+ = 75 mL/min/1.73 sq.m. Chronic Kidney Disease: Less than 60 mL/min/1.73 square meters End Stage Renal Disease: Less than 15 mL/min/1.73 square meters GFR/1.73 sq M.predicted among non-blacks MDRD (S/P/Bld) [Vol rate/Area] 65 ml/min/1.73sqm Invalid Interpretation Code AO Chemistry S Comment on above: Interpretive Data: GFR Population mean for , Non- Americans Ages 20-29 = 116 mL/min/1.73 sq.m. Ages 30-39 = 107 mL/min/1.73 sq.m. Ages 40-49 = 99 mL/min/1.73 sq.m. Ages 50-59 = 93 mL/min/1.73 sq.m. Ages 60-69 = 85 mL/min/1.73 sq.m. Ages 70+ = 75 mL/min/1.73 sq.m. Chronic Kidney Disease: Less than 60 mL/min/1.73 square meters End Stage Renal Disease: Less than 15 mL/min/1.73 square meters Globulin 5.5 G/dL Invalid Interpretation Code AO ADM SS Glucose [Mass/Vol] 654 mg/dL Invalid Interpretation Code 70 - 105 mg/dL AO ADM SS Hematocrit (Bld) [Volume fraction] 41.7 % Normal 37.0 - 47.0 % AO Workflow SS Hemoglobin (Bld) [Mass/Vol] 13.3 G/dL Normal 12.0 - 16.0 G/dL AO Workflow SS Lymphocyte, Absolute 2.1 103/mcL Normal 0.8 - 3 .9 10^3/mcL AO Workflow SS Lymphocytes/100 WBC (Bld) 18.0 % Normal 10.0 - 50.0 % AO Workflow SS MCH (RBC) [Entitic mass] 27.3 pg Normal 27.0 - 31.2 pg AO Workflow SS MCHC 31.9 G/dL Low 33.0 - 37.0 G/dL AO Workflow SS MCV (RBC) [Entitic vol] 85.8 fL Normal 80.0 - 94.0 fL AO Workflow SS Monocyte distribution width Auto (Bld) [Entitic vol] 20.84 1 High 0.00 - 20.00 AO Workflow SS Comment on above: Result Comment: For adults in ED, MDW>20.0 may be associated with a higher risk of sepsis during the first 12hrs of hospital admission Monocyte, Absolute 0.5 103/mcL Normal 0.2 - 1.0 10^3/mcL AO Workflow SS Monocytes/100 WBC (Bld) 4.6 % Normal 1.7 - 13.0 % AO Workflow SS Neutrophil, Absolute 8.7 103/mcL High 2.9 - 6 .2 10^3/mcL AO Workflow SS Neutrophils/100 WBC (Bld) 74.3 % Normal 37.0 - 80.0 % AO Workflow SS Platelet mean volume (Bld) [Entitic vol] 8.5 fL Normal 7.4 - 10.4 fL AO Workflow SS Platelets (Bld) [#/Vol] 210 103/mcL Normal 130 - 400 10^3/mcL AO Workflow SS Potassium [Moles/Vol] 4.8 mmol/L Normal 3.5 - 5.1 mmol/L AO ADM SS Protein [Mass/Vol] 8.7 G/dL High 6.4 - 8.2 G/dL AO ADM SS RBC (Bld) [#/Vol] 4.86 106/mcL Normal 4.20 - 5.4 0 10^6/mcL AO Workflow SS Sodium [Moles/Vol] 128 mmol/L Low 136 - 145 mmol/L AO ADM SS Urea nitrogen [Mass/Vol] 9 mg/dL Normal 7 - 18 mg/dL AO ADM SS Urea nitrogen/Creatinine [Mass ratio] 10 ratio Normal 7 - 27 ratio AO ADM SS WBC (Bld) [#/Vol] 11.7 103/mcL High 4.6 - 10.8 10^3/mcL AO Workflow SS UAon 02-25-2024 Color (U) Yellow Normal [facility] [place] Comment on above: Performed By: #### T SH, CMP, GFR #### [place] [address] [address] Glucose (U) [Mass/Vol] mg/dL Abnormal Negative [facility] [place] Comment on above: Performed By: #### T SH, CMP, GFR #### [address] [address] Ketones Ql (U) Negative Normal Negative [facility] [place] Comment on above: Performed By: #### T SH, CMP, GFR #### [address] [address] UA Appear Slightly Cloudy Abnormal Clear [facility] [place] Comment on above: Performed By: #### T SH, CMP, GFR #### [address] [address] UA Blood Moderate Abnormal Negative [facility] [place] Comment on above: Performed By: #### T SH, CMP, GFR #### [address] [address] UA Leuk Est Trace Abnormal Negative [facility] [place] Comment on above: Performed By: #### T SH, CMP, GFR #### [address] [address] UA Nitrite Negative Normal Negative [facility] [place] Comment on above: Performed By: #### T SH, CMP, GFR #### [place] [address] [address] UA pH 6.0 Normal 5.0 - 8.0 [facility] [place] Comment on above: Performed By: #### T SH, CMP, GFR #### [address] [address] UA Protein Negative Normal Negative [facility] [place] Comment on above: Performed By: #### T SH, CMP, GFR #### [place] [id number] UA Spec Grav 1.010 Abnormal 1.015-1.025 [facility] [place] Comment on above: Performed By: #### T SH, CMP, GFR #### [place] [address] UA Specimen Type Clean Catch Normal [facility] [place] Comment on above: Performed By: #### T SH, CMP, GFR #### [place] [id number] UA Urobilinogen 0.2 E.U./dL Normal 0.2-1.0 [facility] [place] Comment on above: Performed By: #### T SH, CMP, GFR #### [place] [address] Urobilinogen (U) [Mass/Vol] Negative Normal Negative [facility] [place] Comment on above: Performed By: #### T SH, CMP, GFR #### [address] [address] .Auto Diffon 02-24-2024 Basophil, Absolute 0.0 10 3/mcL Normal 0.0-0.2 [facility] ([place]) Comment on above: Performed By: #### C MP, GFR, CBC, RAVEN LEDESMA MDW #### [address] [address] Basophils/100 WBC (Bld) 0.8 % Normal 0.0-2.5 [facility] [place] Comment on above: Performed By: #### C MP, GFR, CBC, RAVEN LEDESMA MDW #### [address] [address] Eosinophil, Absolute 0.2 10 3/mcL Normal 0.0-0.4 [facility] ([place]) Comment on above: Performed By: #### C MP, GFR, CBC, ADIFFRAVEN MDW #### [address] [address] Eosinophils/100 WBC (Bld) 3.4 % Normal 0.0-7.0 [facility] [place] Comment on above: Performed By: #### C MP, GFR, CBC, ADIFFRAVEN MDW #### [address] [address] Lymphocyte, Absolute 2.0 10 3/mcL Normal 0.8-3.9 [facility] [place] Comment on above: Performed By: #### C MP, GFR, CBC, ADRAVEN HUFF MDW #### [address] [address] Lymphocytes/100 WBC (Bld) 32.2 % Normal 10.0-50.0 [facility] [place] Comment on above: Performed By: #### C MP, GFR, CBC, ADRAVEN HUFF MDW #### [address] [address] Monocyte, Absolute 0.4 10 3/mcL Normal 0.2-1.0 [facility] ([place] Comment on above: Performed By: #### C MP, GFR, CBC, ADRAVEN HUFF MDW #### [address] [address] Monocytes/100 WBC (Bld) 6.0 % Normal 1.7-13.0 [facility] [place] Comment on above: Performed By: #### C MP, GFR, CBC, ADIFFRAVEN MDW #### [address] [address] Neutrophils/100 WBC (Bld) 57.6 % Normal 37.0-80.0 [facility] [place] Comment on above: Performed By: #### C MP, GFR, CBC, ADIFFRAVEN MDW #### [address] [address] .GFRon 02-24-2024 GFR 73 ml/min/1.73sqm Normal [facility] [place] Comment on above: Result Comment: GFR Population mean for , Non- Americans Ages 20-29 = 116 mL/min/1.73 sq.m. Ages 30-39 = 107 mL/min/1.73 sq.m. Ages 40-49 = 99 mL/min/1.73 sq.m. Ages 50-59 = 93 mL/min/1.73 sq.m. Ages 60-69 = 85 mL/min/1.73 sq.m. Ages 70+ = 75 mL/min/1.73 sq.m. Chronic Kidney Disease: Less than 60 mL/min/1.73 square meters End Stage Renal Disease: Less than 15 mL/min/1.73 square meters Performed By: #### C MP, GFR, CBCBALTAZAR ANEU, MDW #### [address] [address] GFR Non- 60 ml/min/1.73sqm Normal [facility] [place] Comment on above: Result Comment: GFR Population mean for , Non- Americans Ages 20-29 = 116 mL/min/1.73 sq.m. Ages 30-39 = 107 mL/min/1.73 sq.m. Ages 40-49 = 99 mL/min/1.73 sq.m. Ages 50-59 = 93 mL/min/1.73 sq.m. Ages 60-69 = 85 mL/min/1.73 sq.m. Ages 70+ = 75 mL/min/1.73 sq.m. Chronic Kidney Disease: Less than 60 mL/min/1.73 square meters End Stage Renal Disease: Less than 15 mL/min/1.73 square meters Performed By: #### C MP, GFR, CBCBALTAZAR ANEU, MDW #### [place] [address] [place], [place] [address] .NEUABSon 02-24-2024 Neutrophil, Absolute 3.7 10 3/mcL Normal 2.9-6.2 [facility] [place] Comment on above: Performed By: #### C MP, GFR, CBC, RAVEN LEDESMA MDW #### [address] [address] CBCon 02-24-2024 Erythrocyte distribution width (RBC) [Ratio] 16.6 % High 11.5-14.5 [facility] [place] Comment on above: Performed By: #### C MP, GFR, CBC, RAVEN LEDESMA MDW #### [address] [address] Hematocrit (Bld) [Volume fraction] 38.2 % Normal 37.0-47.0 [facility] [place] Comment on above: Performed By: #### C MP, GFR, CBC, RAVEN LEDESMA MDW #### [address] [address] Hgb 12.3 G/dL Normal 12.0-16.0 [facility] [place] Comment on above: Performed By: #### C MP, GFR, CBC, RAVEN LEDESMA MDW #### [address] [address] MCH (RBC) [Entitic mass] 27.3 pg Normal 27.0-31.2 [facility] [place] Comment on above: Performed By: #### C MP, GFR, CBC, RAVEN LEDESMA MDW #### [address] [address] MCHC 32.2 G/dL Low 33.0-37.0 [facility] [place] Comment on above: Performed By: #### C MP, GFR, CBC, RAVEN LEDESMA MDW #### [address] [address] MCV (RBC) [Entitic vol] 84.6 fL Normal 80.0-94.0 [facility] [place] Comment on above: Performed By: #### C MP, GFR, CBC, RAVEN LEDESMA MDW #### [address] [address] Platelet 187 10 3/mcL Normal 130-400 [facility] [place] Comment on above: Performed By: #### C MP, GFR, CBC, RAVEN LEDESMA MDW #### [address] [address] Platelet mean volume (Bld) [Entitic vol] 8.6 fL Normal 7.4-10.4 [facility] [place] Comment on above: Performed By: #### C MP, GFR, CBC, RAVEN LEDESMA MDW #### [address] [address] RBC 4.52 10 6/mcL Normal 4.20-5.40 [facility] [place] Comment on above: Performed By: #### C MP, GFR, CBC, RAVEN LEDESMA MDW #### [address] [address] WBC 6.4 10 3/mcL Normal 4.6-10.8 [facility] [place] Comment on above: Performed By: #### C MP, GFR, CBC, RAVEN LEDESMA MDW #### [address] [address] CEFUROXIME:SUSC:PT:ISOLATE:O RDQN:MICon 02-24-2024 Cefuroxime SHAHEEN [Susc] >100,000 cfu/ml Escherichia coli >100,000 cfu/ml Escherichia coli #2 [facility] Work Phone: [facility] 02-24-2024 Albumin Level 3.1 G/dL Low 3.5-5.0 [facility] [place] Comment on above: Performed By: #### C MP, GFR, CBC, RAVEN LEDESMA MDW #### [place] [address] Albumin/Globulin [Mass ratio] 0.6 {ratio} Low 1.1-2.5 [facility] [place] Comment on above: Performed By: #### C MP, GFR, CBC, RAVEN LEDESMA MDW #### [place] [id number] ALP [Catalytic activity/Vol] 223 U/L High 40-135 [facility] [place] Comment on above: Performed By: #### C MP, GFR, CBCBALTAZAR ANEU, MDW #### [address] [address] ALT [Catalytic activity/Vol] 44 U/L Normal 14-59 [facility] [place] Comment on above: Performed By: #### C MP, GFR, CBCBALTAZAR ANEU, MDW #### [address] [address] AST [Catalytic activity/Vol] 36 U/L Normal 10-40 [facility] [place] Comment on above: Performed By: #### C MP, GFR, CBCBALTAZAR ANEU, MDW #### [address] [address] Bili Total 0.7 mg/dL Normal 0.2-1.0 [facility] [place] Comment on above: Result Comment: Use of this assay is not recommended for patients undergoing treatment with eltrombopag due to the potential for falsely elevated results. Performed By: #### C MP, GFR, CBCBALTAZAR ANEU, MDW #### [address] [address] BUN/Creatinine Ratio 14 ratio Normal 7-27 [facility] ([place] Comment on above: Performed By: #### C MP, GFR, CBCBALTAZAR ANEU, MDW #### [address] [address] Calcium [Mass/Vol] 9.0 mg/dL Normal 8.4-10.2 [facility] ([place]) Comment on above: Performed By: #### C MP, GFR, CBCBALTAZAR ANEU, MDW #### [address] [address] Chloride [Moles/Vol] 96 mmol/L Low 98-107 [facility] [place] Comment on above: Performed By: #### C MP, GFR, CBCBALTAZAR ANEU, MDW #### [address] [address] CO2 [Moles/Vol] 32 mmol/L High 22-29 [facility] [place] Comment on above: Performed By: #### C MP, GFR, CBC, RAVEN LEDESMA MDW #### [address] [address] Creatinine [Mass/Vol] 0.96 mg/dL Normal 0.55-1.02 [facility] ([place]) Comment on above: Performed By: #### C MP, GFR, CBC, RAVEN LEDESMA MDW #### [address] [address] Electrolyte Balance 3.0 mEq/L Low 4.0-15.0 [facility] ([place]) Comment on above: Performed By: #### C MP, GFR, CBC, RAVEN LEDESMA MDW #### [address] [address] Globulin 5.0 G/dL Normal [facility] [place] Comment on above: Performed By: #### C MP, GFR, CBC, RAVEN LEDESMA MDW #### [address] [address] Glucose [Mass/Vol] 567 mg/dL Critically abnormal 70-105 [facility] [place] Comment on above: Performed By: #### C MP, GFR, CBC, RAVEN LEDESMA MDW #### [address] [address] Potassium [Moles/Vol] 5.3 mmol/L High 3.5-5.1 [facility] ([place]) Comment on above: Performed By: #### C MP, GFR, CBCBALTAZAR ANEU, MDW #### [address] [address] Sodium [Moles/Vol] 131 mmol/L Low 136-145 [facility] ([place]) Comment on above: Performed By: #### C MP, GFR, CBC, RAVEN LEDESMA MDW #### [place] [address] [place], [place] [address] Total Protein 8.1 G/dL Normal 6.4-8.2 [facility] [place] Comment on above: Performed By: #### C MP, GFR, CBC, RAVEN LEDESMA MDW #### [facility] [address] [place], [place] [address] Urea nitrogen [Mass/Vol] 13 mg/dL Normal 7-18 [facility] [place] Comment on above: Performed By: #### C MP, GFR, CBC, RAVEN LEDESMA MDW #### [place] [address] [place], [place] [address] Cefuroxime SHAHEEN [Susc]on Escherichia coli Escherichia coli [facility] Work Phone: LABORATORYOrdered By: SYSTEM SYSTEM on 02-24-2024 Albumin BCP dye [Mass/Vol] 3.1 G/dL Low 3.5 - 5.0 G/dL AO ADM SS Albumin/Globulin [Mass ratio] 0.6 {ratio} Low 1.1 - 2.5 ratio AO ADM SS ALP [Catalytic activity/Vol] 223 U/L High 40 - 135 U/L AO ADM SS ALT With P-5'-P [Catalytic activity/Vol] 44 U/L Normal 14 - 59 U/L AO ADM SS AST With P-5'-P [Catalytic activity/Vol] 36 U/L Normal 10 - 40 U/L AO ADM SS Basophil, Absolute 0.0 103/mcL Normal 0.0 - 0.2 10^3/mcL AO Workflow SS Basophils/100 WBC (Bld) 0.8 % Normal 0.0 - 2.5 % AO Workflow SS Bilirubin [Mass/Vol] 0.7 mg/dL Normal 0.2 - 1 .0 mg/dL AO ADM SS Comment on above: Interpretive Data: U se of this assay is not recommended for patients undergoing treatment with eltrombopag due to the potential for falsely elevated results. Calcium [Mass/Vol] 9.0 mg/dL Normal 8.4 - 10. 2 mg/dL AO ADM SS Chloride [Moles/Vol] 96 mmol/L Low 98 - 10 7 mmol/L AO ADM SS CO2 [Moles/Vol] 32 mmol/L High 22 - 29 mmol/L AO ADM SS Creatinine [Mass/Vol] 0.96 mg/dL Normal 0.55 - 1.02 mg/dL AO ADM SS Electrolyte Balance 3.0 mEq/L Low 4.0 - 15 .0 mEq/L AO ADM SS Eosinophil, Absolute 0.2 103/mcL Normal 0.0 - 0 .4 10^3/mcL AO Workflow SS Eosinophils/100 WBC (Bld) 3.4 % Normal 0.0 - 7.0 % AO Workflow SS Erythrocyte distribution width (RBC) [Ratio] 16.6 % High 11.5 - 14.5 % AO Workflow SS GFR/1.73 sq M.predicted among blacks MDRD (S/P/Bld) [Vol rate/Area] 73 ml/min/1.73sqm Invalid Interpretation Code AO Chemistry S Comment on above: Interpretive Data: GFR Population mean for , Non- Americans Ages 20-29 = 116 mL/min/1.73 sq.m. Ages 30-39 = 107 mL/min/1.73 sq.m. Ages 40-49 = 99 mL/min/1.73 sq.m. Ages 50-59 = 93 mL/min/1.73 sq.m. Ages 60-69 = 85 mL/min/1.73 sq.m. Ages 70+ = 75 mL/min/1.73 sq.m. Chronic Kidney Disease: Less than 60 mL/min/1.73 square meters End Stage Renal Disease: Less than 15 mL/min/1.73 square meters GFR/1.73 sq M.predicted among non-blacks MDRD (S/P/Bld) [Vol rate/Area] 60 ml/min/1.73sqm Invalid Interpretation Code AO Chemistry S Comment on above: Interpretive Data: GFR Population mean for , Non- Americans Ages 20-29 = 116 mL/min/1.73 sq.m. Ages 30-39 = 107 mL/min/1.73 sq.m. Ages 40-49 = 99 mL/min/1.73 sq.m. Ages 50-59 = 93 mL/min/1.73 sq.m. Ages 60-69 = 85 mL/min/1.73 sq.m. Ages 70+ = 75 mL/min/1.73 sq.m. Chronic Kidney Disease: Less than 60 mL/min/1.73 square meters End Stage Renal Disease: Less than 15 mL/min/1.73 square meters Globulin 5.0 G/dL Invalid Interpretation Code AO ADM SS Glucose [Mass/Vol] 567 mg/dL Invalid Interpretation Code 70 - 105 mg/dL AO ADM SS Comment on above: Result Comment: CVRB D Ondash 1335 exb=[id number]. ja Hematocrit (Bld) [Volume fraction] 38.2 % Normal 37.0 - 47.0 % AO Workflow SS Hemoglobin (Bld) [Mass/Vol] 12.3 G/dL Normal 12.0 - 16.0 G/dL AO Workflow SS Lymphocyte, Absolute 2.0 103/mcL Normal 0.8 - 3 .9 10^3/mcL AO Workflow SS Lymphocytes/100 WBC (Bld) 32.2 % Normal 10.0 - 50.0 % AO Workflow SS MCH (RBC) [Entitic mass] 27.3 pg Normal 27.0 - 31.2 pg AO Workflow SS MCHC 32.2 G/dL Low 33.0 - 37.0 G/dL AO Workflow SS MCV (RBC) [Entitic vol] 84.6 fL Normal 80.0 - 94.0 fL AO Workflow SS Monocyte, Absolute 0.4 103/mcL Normal 0.2 - 1.0 10^3/mcL AO Workflow SS Monocytes/100 WBC (Bld) 6.0 % Normal 1.7 - 13.0 % AO Workflow SS Neutrophil, Absolute 3.7 103/mcL Normal 2.9 - 6 .2 10^3/mcL AO Workflow SS Neutrophils/100 WBC (Bld) 57.6 % Normal 37.0 - 80.0 % AO Workflow SS Platelet mean volume (Bld) [Entitic vol] 8.6 fL Normal 7.4 - 10.4 fL AO Workflow SS Platelets (Bld) [#/Vol] 187 103/mcL Normal 130 - 400 10^3/mcL AO Workflow SS Potassium [Moles/Vol] 5.3 mmol/L High 3.5 - 5.1 mmol/L AO ADM SS Protein [Mass/Vol] 8.1 G/dL Normal 6.4 - 8.2 G/dL AO ADM SS RBC (Bld) [#/Vol] 4.52 106/mcL Normal 4.20 - 5.4 0 10^6/mcL AO Workflow SS Sodium [Moles/Vol] 131 mmol/L Low 136 - 145 mmol/L AO ADM SS Urea nitrogen [Mass/Vol] 13 mg/dL Normal 7 - 18 mg/dL AO ADM SS Urea nitrogen/Creatinine [Mass ratio] 14 ratio Normal 7 - 27 ratio AO ADM SS WBC (Bld) [#/Vol] 6.4 103/mcL Normal 4.6 - 10.8 10^3/mcL AO Workflow SS Urgent Care Visit Reporton 0 01-27-2024 Urgent Care Visit Report Normal [facility]23 [facility] [place] [facility] Information[facility]13 Culture Urine >100,000 cfu/ml Mult iple bacterial morphotypes present. Probable Contamination. Suggest recollection if clinically indicated. [facility] Work Phone: US ABDOMEN COMPLETEon 2023 US ABDOMEN COMPLETE ORIGINAL EXAMINATION: COMPLETE ABDOMINAL ULTRASOUND09/16/2023 10:40 am TECHNIQUE: Multiple real time sonographic images of the abdomen were obtained assessing hardin-scale appearance and color Doppler. COMPARISON: CT abdomen pelvis 06/08/2023 HISTORY: ORDERING SYSTEM PROVIDED HISTORY: Reason for Exam: RLQ pain x 2 weeks FINDINGS: PANCREAS: Partially obscured by bowel gas. The visualized portions of the pancreas are normal in size and echogenicity. LIVER: The liver is 20.2 cm in length. Heterogeneous hepatic parenchymal echogenicity with nodular contour and coarse echotexture suggestive of cirrhosis. No hepatic mass identified. GALLBLADDER/BILARY: Prior cholecystectomy. Nointrahepatic biliary ductal dilatation. CBD measures 4.3 mm. SPLEEN: The spleen is enlarged and measures 13.8 cm. Scattered calcified splenic granulomas are present. KIDNEYS: The visualized kidneys shows no pelvicaliectasis. 1.6 cm simple right renal cyst. VASCULATURE: The visualized IVC is normal caliber. Suboptimal visualization due to overlying bowel gas. ASCITES: None. IMPRESSION: Hepatosplenomegaly with sonographic findings consistent with cirrhosis as described above. Prior cholecystectomy. Simple right renal cyst noted. I have personally reviewed the images of this examination and agree with the resident's findings and interpretation. Interpreted by: Raj Martin MD Preliminary Report By: Bhupinder Yap Electronically signed By Raj Martin MD Dictated Date: 09/17/2023 9:25:39 AM Prelim Date: 09/17/2023 1:13:39 PM Sign Date: 09/17/2023 1:13:39 PM Ordering Provider: VERO Epstein [facility] [place] THORAX W/O CONTRASTon CT THORAX W/O CONTRAST ORIGINAL EXAMINATION: CT OF THE CHEST WITHOUT CONTRAST 09/02/2023 10:00 am TECHNIQUE: CT of the chest was performed without the administration of intravenous contrast. Multiplanar reformatted images are provided for review. Automated exposure control, iterative reconstruction, and/or weight based adjustment of the mA/kV was utilized to reduce the radiation dose to as low as reasonably achievable. COMPARISON: None. HISTORY: ORDERING SYSTEM PROVIDED HISTORY: Reason for Exam: lung nodules on prior CT FINDINGS: Lungs and pleura: There is linear subsegmental atelectasis/scarring in both upper lobes and lingula. There is no focal consolidation to suggest pneumonia. There is mild dependent atelectasis in the right lower lobe as well. No pleural effusion or pneumothorax identified. The previously described right middle lobe and left lower lobe ground-glass and solid pulmonary nodules are not definitely visualized on the current exam.. Trachea and bronchi: The trachea and bronchi are patent. Mediastinum and leigh: The mediastinum, leigh and lymph nodes are normal. Heart and pericardium: The heart is normal in size. There is dense calcification of mitral annulus. There is no pericardial effusion. There is a 1 x 0.8 cm soft tissue nodule anterior to right ventricle, which appears directly adjacent and inseparable from the pericardium, of uncertain etiology. Findings may reflect a cardiophrenic lymph node and there is an unchanged compared with recent CT scan of the abdomen dated June 08, 2023.. Vessels: The vessels are normal in caliber. Soft tissues: Visualized thyroid gland is unremarkable. Other soft tissues including chest wall are normal. Bones: No aggressive osseous lesion. Mild degenerative changes. Upper abdomen: Coarse splenic calcifications likely sit follow-up prior granulomatous disease, unchanged. Mildly nodular hepatic contour status post cholecystectomy. Nonobstructing left renal calculus. IMPRESSION: Previously described pulmonary nodules have resolved. Scattered bilateral regions of linear subsegmental atelectasis/scarring without focal confluent consolidation to suggest pneumonia. Interpreted by: Anne Brewster Preliminary Report By: Anne Brewster Electronically signed By Anne Brewster Dictated Date: 09/04/2023 12:30:07 PM Prelim Date: 09/04/2023 12:40:25 PM Sign Date: 09/04/2023 12:40:25 PM Ordering Provider: VERO ORTEZ [facility] ([place]) GGTon 08-19-2023 Gamma GT 202 U/L High 5-55 [facility] [place] Comment on above: Performed By: #### T ZAYNAB HEREDIA, GFR #### [place] [address] HEPACon 08-19-2023 Hep A IgM Ab Int [facility] ([place]) Comment on above: Result Comment: No s erological evidence of a current Hepatitis A infection. See Interp Performed By: #### T ZAYNAB HEREDIA, GFR #### [place] [address] Hep B Core IgM Ab Non-Reactive Normal Non-Reactive [facility] ([place]) Comment on above: Performed By: #### T ZAYNAB HEREDIA, GFR #### [place] [address] Hep B Core IgM Ab Int [facility] ([place]) Comment on above: Result Comment: Samp les with a value < 0.80 Index are considered nonreactive (negative) for IgM antibodies to hepatitis B core antigen. See Interp Performed By: #### T ZAYNAB HEREDIA, GFR #### [place] [address] Hep C Ab Int [facility] [place] Comment on above: Result Comment: Nonr eactive: Samples with a value < 0.80 are considered nonreactive (negative) for antibodies to HCV. A negative test result does not exclude the possibility of exposure to or infection with HCV. HCV antibodies may be undetectable in some stages of the infection and in some clinical conditions. See Interp Performed By: #### T GIOVANNA CMP, GFR #### [place] [address] Hep A IgM Ab Non-Reactive Normal Non-Reactive [facility] [place] Comment on above: Performed By: #### T SH, CMP, GFR #### [address] [address] Hep B Surf Ag Non-Reactive Normal Non-Reactive [facility] [place] Comment on above: Performed By: #### T SH, CMP, GFR #### [address] [address] Hep C Ab Non-Reactive Normal Non-Reactive [facility] [place] Comment on above: Performed By: #### T SH, CMP, GFR #### [address] [address] .GFRon 07-30-2023 GFR 78 ml/min/1.73sqm Normal [facility] [place] Comment on above: Result Comment: GFR Population mean for , Non- Americans Ages 20-29 = 116 mL/min/1.73 sq.m. Ages 30-39 = 107 mL/min/1.73 sq.m. Ages 40-49 = 99 mL/min/1.73 sq.m. Ages 50-59 = 93 mL/min/1.73 sq.m. Ages 60-69 = 85 mL/min/1.73 sq.m. Ages 70+ = 75 mL/min/1.73 sq.m. Chronic Kidney Disease: Less than 60 mL/min/1.73 square meters End Stage Renal Disease: Less than 15 mL/min/1.73 square meters Performed By: #### C MP, GFR, CBC, ADIFF, SATURNINO CARBAJAL #### [address] [address] GFR Non- 64 ml/min/1.73sqm Normal [facility] [place] Comment on above: Result Comment: GFR Population mean for , Non- Americans Ages 20-29 = 116 mL/min/1.73 sq.m. Ages 30-39 = 107 mL/min/1.73 sq.m. Ages 40-49 = 99 mL/min/1.73 sq.m. Ages 50-59 = 93 mL/min/1.73 sq.m. Ages 60-69 = 85 mL/min/1.73 sq.m. Ages 70+ = 75 mL/min/1.73 sq.m. Chronic Kidney Disease: Less than 60 mL/min/1.73 square meters End Stage Renal Disease: Less than 15 mL/min/1.73 square meters Performed By: #### C MP, GFR, CBCBALTAZAR ANEU, MDW #### [address] [address] CMPon 07-30-2023 Albumin Level 3.1 G/dL Low 3.5-5.0 [facility] [place] Comment on above: Performed By: #### C MP, GFR, CBCBALTAZAR ANEU, MDW #### [address] [address] Albumin/Globulin [Mass ratio] 0.6 {ratio} Low 1.1-2.5 [facility] [place] Comment on above: Performed By: #### C MP, GFR, CBCBALTAZAR ANEU, MDW #### [address] [address] ALP [Catalytic activity/Vol] 255 U/L High 40-135 [facility] [place] Comment on above: Performed By: #### C MP, GFR, CBCBALTAZAR ANEU, MDW #### [address] [address] ALT [Catalytic activity/Vol] 70 U/L High 14-59 [facility] [place] Comment on above: Performed By: #### C MP, GFR, CBCBALTAZAR ANEU, MDW #### [address] [address] AST [Catalytic activity/Vol] 64 U/L High 10-40 [facility] [place] Comment on above: Performed By: #### C MP, GFR, CBCBALTAZAR ANEU, MDW #### [address] [address] Bili Total 0.6 mg/dL Normal 0.2-1.0 [facility] [place] Comment on above: Result Comment: Use of this assay is not recommended for patients undergoing treatment with eltrombopag due to the potential for falsely elevated results. Performed By: #### C MP, GFR, CBC, RAVEN LEDESMA MDW #### [address] [address] BUN/Creatinine Ratio 13 ratio Normal 7-27 [facility] [place] Comment on above: Performed By: #### C MP, GFR, CBC, RAVEN LEDESMA MDW #### [address] [address] Calcium [Mass/Vol] 9.7 mg/dL Normal 8.4-10.2 [facility] ([place]) Comment on above: Performed By: #### C MP, GFR, CBC, RAVEN LEDESMA MDW #### [address] [address] Chloride [Moles/Vol] 98 mmol/L Normal 98-107 [facility] [place] Comment on above: Performed By: #### C MP, GFR, CBC, RAVEN LEDESMA MDW #### [address] [address] CO2 [Moles/Vol] 33 mmol/L High 22-29 [facility] [place] Comment on above: Performed By: #### C MP, GFR, CBC, RAVEN LEDESMA MDW #### [address] [address] Creatinine [Mass/Vol] 0.91 mg/dL Normal 0.55-1.02 [facility] ([place]) Comment on above: Performed By: #### C MP, GFR, CBC, RAVEN LEDESMA MDW #### [address] [address] Electrolyte Balance 6.0 mEq/L Normal 4.0-15.0 [facility] ([place]) Comment on above: Performed By: #### C MP, GFR, CBC, RAVEN LEDESMA MDW #### [address] [address] Globulin 5.1 G/dL Normal [facility] [place] Comment on above: Performed By: #### C MP, GFR, CBC, RAVEN LEDESMA MDW #### [address] [address] Glucose [Mass/Vol] 361 mg/dL High 70-105 [facility] [place] Comment on above: Performed By: #### C MP, GFR, CBC, RAVEN LEDESMA MDW #### [address] [address] Potassium [Moles/Vol] 4.7 mmol/L Normal 3.5-5.1 [facility] ([place] Comment on above: Performed By: #### C MP, GFR, CBC, RAVEN LEDESMA MDW #### [address] [address] Sodium [Moles/Vol] 137 mmol/L Normal 136-145 [facility] [place] Comment on above: Performed By: #### C MP, GFR, CBC, RAVEN LEDESMA MDW #### [address] [address] Total Protein 8.2 G/dL Normal 6.4-8.2 [facility]) Comment on above: Performed By: #### C MP, GFR, CBC, RAVEN LEDESMA MDW #### [address] [address] Urea nitrogen [Mass/Vol] 12 mg/dL Normal 7-18 [facility] [facility]) Comment on above: Performed By: #### C MP, GFR, CBC, RAVEN LEDESMA MDW #### [address] [address] FT4on 07-30-2023 Free T4 [Mass/Vol] 0.76 ng/dL Normal 0.76-1.46 [facility] ([place]) Comment on above: Performed By: #### C MP, GFR, CBC, RAVEN LEDESMA MDW #### [address] [address] LABORATORYOrdered By: SYSTEM SYSTEM on 07-30-2023 Albumin BCP dye [Mass/Vol] 3.1 G/dL Low 3.5 - 5.0 G/dL AO ADM SS Albumin/Globulin [Mass ratio] 0.6 {ratio} Low 1.1 - 2.5 ratio AO ADM SS ALP [Catalytic activity/Vol] 255 U/L High 40 - 135 U/L AO ADM SS ALT With P-5'-P [Catalytic activity/Vol] 70 U/L High 14 - 59 U/L AO ADM SS AST With P-5'-P [Catalytic activity/Vol] 64 U/L High 10 - 40 U/L AO ADM SS Bilirubin [Mass/Vol] 0.6 mg/dL Normal 0.2 - 1 .0 mg/dL AO ADM SS Comment on above: Interpretive Data: U se of this assay is not recommended for patients undergoing treatment with eltrombopag due to the potential for falsely elevated results. Calcium [Mass/Vol] 9.7 mg/dL Normal 8.4 - 10. 2 mg/dL AO ADM SS Chloride [Moles/Vol] 98 mmol/L Normal 98 - 10 7 mmol/L AO ADM SS CO2 [Moles/Vol] 33 mmol/L High 22 - 29 mmol/L AO ADM SS Creatinine [Mass/Vol] 0.91 mg/dL Normal 0.55 - 1.02 mg/dL AO ADM SS Electrolyte Balance 6.0 mEq/L Normal 4.0 - 15 .0 mEq/L AO ADM SS Free T4 [Mass/Vol] 0.76 ng/dL Normal 0.76 - 1. 46 ng/dL AO ADM SS GFR/1.73 sq M.predicted among blacks MDRD (S/P/Bld) [Vol rate/Area] 78 ml/min/1.73sqm Invalid Interpretation Code AO Chemistry S Comment on above: Interpretive Data: GFR Population mean for , Non- Americans Ages 20-29 = 116 mL/min/1.73 sq.m. Ages 30-39 = 107 mL/min/1.73 sq.m. Ages 40-49 = 99 mL/min/1.73 sq.m. Ages 50-59 = 93 mL/min/1.73 sq.m. Ages 60-69 = 85 mL/min/1.73 sq.m. Ages 70+ = 75 mL/min/1.73 sq.m. Chronic Kidney Disease: Less than 60 mL/min/1.73 square meters End Stage Renal Disease: Less than 15 mL/min/1.73 square meters GFR/1.73 sq M.predicted among non-blacks MDRD (S/P/Bld) [Vol rate/Area] 64 ml/min/1.73sqm Invalid Interpretation Code AO Chemistry S Comment on above: Interpretive Data: GFR Population mean for , Non- Americans Ages 20-29 = 116 mL/min/1.73 sq.m. Ages 30-39 = 107 mL/min/1.73 sq.m. Ages 40-49 = 99 mL/min/1.73 sq.m. Ages 50-59 = 93 mL/min/1.73 sq.m. Ages 60-69 = 85 mL/min/1.73 sq.m. Ages 70+ = 75 mL/min/1.73 sq.m. Chronic Kidney Disease: Less than 60 mL/min/1.73 square meters End Stage Renal Disease: Less than 15 mL/min/1.73 square meters Globulin 5.1 G/dL Invalid Interpretation Code AO ADM SS Glucose [Mass/Vol] 361 mg/dL High 70 - 105 mg/dL AO ADM SS Potassium [Moles/Vol] 4.7 mmol/L Normal 3.5 - 5.1 mmol/L AO ADM SS Protein [Mass/Vol] 8.2 G/dL Normal 6.4 - 8.2 G/dL AO ADM SS Sodium [Moles/Vol] 137 mmol/L Normal 136 - 145 mmol/L AO ADM SS TSH Qn 11.80 m[IU]/L High 0.36 - 3.74 mcIU/mL AO ADM SS Urea nitrogen [Mass/Vol] 12 mg/dL Normal 7 - 18 mg/dL AO ADM SS Urea nitrogen/Creatinine [Mass ratio] 13 ratio Normal 7 - 27 ratio AO ADM SS TSHon 07-30-2023 TSH Qn 11.80 m[IU]/L High 0.36-3.74 [facility] ([place]) Comment on above: Performed By: #### C MP, GFR, CBC, ADIFF, ANEU, W #### [place] [address] .Auto Diffon 07-26-2023 Basophil, Absolute 0.1 10 3/mcL Normal 0.0-0.2 [facility] ([place]) Comment on above: Performed By: #### T SH, CMP, GFR #### [address] [address] Basophils/100 WBC (Bld) 0.8 % Normal 0.0-2.5 [facility] ([place]) Comment on above: Performed By: #### T SH, CMP, GFR #### [address] [address] Eosinophil, Absolute 0.4 10 3/mcL Normal 0.0-0.4 [facility] ([place]) Comment on above: Performed By: #### T SH, CMP, GFR #### [address] [address] Eosinophils/100 WBC (Bld) 3.5 % Normal 0.0-7.0 [facility] ([place]) Comment on above: Performed By: #### T SH, CMP, GFR #### [address] [address] Lymphocyte, Absolute 2.9 10 3/mcL Normal 0.8-3.9 [facility] ([place]) Comment on above: Performed By: #### T SH, CMP, GFR #### [address] [address] Lymphocytes/100 WBC (Bld) 28.1 % Normal 10.0-50.0 [facility] ([place]) Comment on above: Performed By: #### T SH, CMP, GFR #### [address] [address] Monocyte, Absolute 0.7 10 3/mcL Normal 0.2-1.0 [facility] ([place]) Comment on above: Performed By: #### T SH, CMP, GFR #### [address] [address] Monocytes/100 WBC (Bld) 6.5 % Normal 1.7-13.0 [facility] ([place]) Comment on above: Performed By: #### T SH, CMP, GFR #### [place] [address] [address] Neutrophils/100 WBC (Bld) 61.1 % Normal 37.0-80.0 [facility] ([place]) Comment on above: Performed By: #### T SH, CMP, GFR #### [place] [address] [address] .GFRon 07-26-2023 GFR 80 ml/min/1.73sqm Normal [facility] ([place] Comment on above: Result Comment: GFR Population mean for , Non- Americans Ages 20-29 = 116 mL/min/1.73 sq.m. Ages 30-39 = 107 mL/min/1.73 sq.m. Ages 40-49 = 99 mL/min/1.73 sq.m. Ages 50-59 = 93 mL/min/1.73 sq.m. Ages 60-69 = 85 mL/min/1.73 sq.m. Ages 70+ = 75 mL/min/1.73 sq.m. Chronic Kidney Disease: Less than 60 mL/min/1.73 square meters End Stage Renal Disease: Less than 15 mL/min/1.73 square meters Performed By: #### T SH, CMP, GFR #### [place] [address] [address] GFR Non- 66 ml/min/1.73sqm Normal [facility] ([place]) Comment on above: Result Comment: GFR Population mean for , Non- Americans Ages 20-29 = 116 mL/min/1.73 sq.m. Ages 30-39 = 107 mL/min/1.73 sq.m. Ages 40-49 = 99 mL/min/1.73 sq.m. Ages 50-59 = 93 mL/min/1.73 sq.m. Ages 60-69 = 85 mL/min/1.73 sq.m. Ages 70+ = 75 mL/min/1.73 sq.m. Chronic Kidney Disease: Less than 60 mL/min/1.73 square meters End Stage Renal Disease: Less than 15 mL/min/1.73 square meters Performed By: #### T SH, CMP, GFR #### [place] [id number] .NEUABSon 07-26-2023 Neutrophil, Absolute 6.2 10 3/mcL Normal 2.9-6.2 [facility] ([place]) Comment on above: Performed By: #### T SH, CMP, GFR #### [place] [id number] CBCon 07-26-2023 Erythrocyte distribution width (RBC) [Ratio] 15.8 % High 11.5-14.5 [facility] ([place] Comment on above: Performed By: #### T SH, CMP, GFR #### [place] [address] Hematocrit (Bld) [Volume fraction] 40.5 % Normal 37.0-47.0 [facility] ([place] Comment on above: Performed By: #### T SH, CMP, GFR #### [place] [address] Hgb 13.6 G/dL Normal 12.0-16.0 [facility] ([place] Comment on above: Performed By: #### T SH, CMP, GFR #### [place] [address] MCH (RBC) [Entitic mass] 28.8 pg Normal 27.0-31.2 [facility] ([place] Comment on above: Performed By: #### T SH, CMP, GFR #### [place] [address] MCHC 33.7 G/dL Normal 33.0-37.0 [facility] ([place] Comment on above: Performed By: #### T SH, CMP, GFR #### [place] [address] MCV (RBC) [Entitic vol] 85.6 fL Normal 80.0-94.0 [facility] ([place] Comment on above: Performed By: #### T SH, CMP, GFR #### [place] [id number] Platelet 232 10 3/mcL Normal 130-400 [facility] ([place] Comment on above: Performed By: #### T SH, CMP, GFR #### [address] [address] Platelet mean volume (Bld) [Entitic vol] 7.9 fL Normal 7.4-10.4 [facility] ([place] Comment on above: Performed By: #### T SH, CMP, GFR #### [address] [address] RBC 4.73 10 6/mcL Normal 4.20-5.40 [facility] ([place] Comment on above: Performed By: #### T SH, CMP, GFR #### [address] [address] WBC 10.2 10 3/mcL Normal 4.6-10.8 [facility] ([place] Comment on above: Performed By: #### T SH, CMP, GFR #### [address] [address] CMPon 07-26-2023 Albumin Level 3.2 G/dL Low 3.5-5.0 [facility] ([place] Comment on above: Performed By: #### T SH, CMP, GFR #### [address] [address] Albumin/Globulin [Mass ratio] 0.6 {ratio} Low 1.1-2.5 [facility] ([place] Comment on above: Performed By: #### T SH, CMP, GFR #### [address] [address] ALP [Catalytic activity/Vol] 279 U/L High 40-135 [facility] ([place] Comment on above: Performed By: #### T SH, CMP, GFR #### [address] [address] ALT [Catalytic activity/Vol] 106 U/L High 14-59 [facility] ([place] Comment on above: Performed By: #### T SH, CMP, GFR #### [address] [address] AST [Catalytic activity/Vol] 144 U/L High 10-40 [facility] ([place] Comment on above: Performed By: #### T GIOVANNA, CMP, GFR #### [address] [address] Bili Total 0.8 mg/dL Normal 0.2-1.0 [facility] ([place] Comment on above: Result Comment: Use of this assay is not recommended for patients undergoing treatment with eltrombopag due to the potential for falsely elevated results. Performed By: #### T SH, CMP, GFR #### [address] [address] BUN/Creatinine Ratio 17 ratio Normal 7-27 [facility] ([place] Comment on above: Performed By: #### T GIOVANNA, CMP, GFR #### [address] [address] Calcium [Mass/Vol] 9.4 mg/dL Normal 8.4-10.2 [facility] ([place]) Comment on above: Performed By: #### T GIOVANNA, CMP, GFR #### [address] [address] Chloride [Moles/Vol] 97 mmol/L Low 98-107 [facility] ([place] Comment on above: Performed By: #### T GIOVANNA, CMP, GFR #### [address] [address] CO2 [Moles/Vol] 32 mmol/L High 22-29 [facility] ([place] Comment on above: Performed By: #### T GIOVANNA, CMP, GFR #### [address] [address] Creatinine [Mass/Vol] 0.89 mg/dL Normal 0.55-1.02 [facility] ([place]) Comment on above: Performed By: #### T GIOVANNA, CMP, GFR #### [address] [address] Electrolyte Balance 6.0 mEq/L Normal 4.0-15.0 [facility] ([place]) Comment on above: Performed By: #### T SH, CMP, GFR #### [address] [address] Globulin 5.3 G/dL Normal [facility] ([place] Comment on above: Performed By: #### T GIOVANNA, CMP, GFR #### [address] [address] Glucose [Mass/Vol] 388 mg/dL High 70-105 [facility] ([place]) Comment on above: Performed By: #### T GIOVANNA, CMP, GFR #### [address] [address] Potassium [Moles/Vol] 5.3 mmol/L High 3.5-5.1 [facility] ([place]) Comment on above: Performed By: #### T GIOVANNA, CMP, GFR #### [address] [address] Sodium [Moles/Vol] 135 mmol/L Low 136-145 [facility] ([place]) Comment on above: Performed By: #### T GIOVANNA CMP, GFR #### [address] [address] Total Protein 8.5 G/dL High 6.4-8.2 [facility] ([place] Comment on above: Performed By: #### T GIOVANNA CMP, GFR #### [address] [address] Urea nitrogen [Mass/Vol] 15 mg/dL Normal 7-18 [facility] ([place] Comment on above: Performed By: #### T GIOVANNA, CMP, GFR #### [address] [address] LABORATORYOrdered By: SYSTEM SYSTEM on 07-26-2023 Albumin BCP dye [Mass/Vol] 3.2 G/dL Low 3.5 - 5.0 G/dL AO ADM SS Albumin/Globulin [Mass ratio] 0.6 {ratio} Low 1.1 - 2.5 ratio AO ADM SS ALP [Catalytic activity/Vol] 279 U/L High 40 - 135 U/L AO ADM SS ALT With P-5'-P [Catalytic activity/Vol] 106 U/L High 14 - 59 U/L AO ADM SS AST With P-5'-P [Catalytic activity/Vol] 144 U/L High 10 - 40 U/L AO ADM SS Basophil, Absolute 0.1 103/mcL Normal 0.0 - 0.2 10^3/mcL AO Workflow SS Basophils/100 WBC (Bld) 0.8 % Normal 0.0 - 2.5 % AO Workflow SS Bilirubin [Mass/Vol] 0.8 mg/dL Normal 0.2 - 1 .0 mg/dL AO ADM SS Comment on above: Interpretive Data: U se of this assay is not recommended for patients undergoing treatment with eltrombopag due to the potential for falsely elevated results. Calcium [Mass/Vol] 9.4 mg/dL Normal 8.4 - 10. 2 mg/dL AO ADM SS Chloride [Moles/Vol] 97 mmol/L Low 98 - 10 7 mmol/L AO ADM SS CO2 [Moles/Vol] 32 mmol/L High 22 - 29 mmol/L AO ADM SS Creatinine [Mass/Vol] 0.89 mg/dL Normal 0.55 - 1.02 mg/dL AO ADM SS Electrolyte Balance 6.0 mEq/L Normal 4.0 - 15 .0 mEq/L AO ADM SS Eosinophil, Absolute 0.4 103/mcL Normal 0.0 - 0 .4 10^3/mcL AO Workflow SS Eosinophils/100 WBC (Bld) 3.5 % Normal 0.0 - 7.0 % AO Workflow SS Erythrocyte distribution width (RBC) [Ratio] 15.8 % High 11.5 - 14.5 % AO Workflow SS GFR/1.73 sq M.predicted among blacks MDRD (S/P/Bld) [Vol rate/Area] 80 ml/min/1.73sqm Invalid Interpretation Code AO Chemistry S Comment on above: Interpretive Data: GFR Population mean for , Non- Americans Ages 20-29 = 116 mL/min/1.73 sq.m. Ages 30-39 = 107 mL/min/1.73 sq.m. Ages 40-49 = 99 mL/min/1.73 sq.m. Ages 50-59 = 93 mL/min/1.73 sq.m. Ages 60-69 = 85 mL/min/1.73 sq.m. Ages 70+ = 75 mL/min/1.73 sq.m. Chronic Kidney Disease: Less than 60 mL/min/1.73 square meters End Stage Renal Disease: Less than 15 mL/min/1.73 square meters GFR/1.73 sq M.predicted among non-blacks MDRD (S/P/Bld) [Vol rate/Area] 66 ml/min/1.73sqm Invalid Interpretation Code AO Chemistry S Comment on above: Interpretive Data: GFR Population mean for , Non- Americans Ages 20-29 = 116 mL/min/1.73 sq.m. Ages 30-39 = 107 mL/min/1.73 sq.m. Ages 40-49 = 99 mL/min/1.73 sq.m. Ages 50-59 = 93 mL/min/1.73 sq.m. Ages 60-69 = 85 mL/min/1.73 sq.m. Ages 70+ = 75 mL/min/1.73 sq.m. Chronic Kidney Disease: Less than 60 mL/min/1.73 square meters End Stage Renal Disease: Less than 15 mL/min/1.73 square meters Globulin 5.3 G/dL Invalid Interpretation Code AO ADM SS Glucose [Mass/Vol] 388 mg/dL High 70 - 105 mg/dL AO ADM SS Hematocrit (Bld) [Volume fraction] 40.5 % Normal 37.0 - 47.0 % AO Workflow SS Hemoglobin (Bld) [Mass/Vol] 13.6 G/dL Normal 12.0 - 16.0 G/dL AO Workflow SS Lymphocyte, Absolute 2.9 103/mcL Normal 0.8 - 3 .9 10^3/mcL AO Workflow SS Lymphocytes/100 WBC (Bld) 28.1 % Normal 10.0 - 50.0 % AO Workflow SS MCH (RBC) [Entitic mass] 28.8 pg Normal 27.0 - 31.2 pg AO Workflow SS MCHC 33.7 G/dL Normal 33.0 - 37.0 G/dL AO Workflow SS MCV (RBC) [Entitic vol] 85.6 fL Normal 80.0 - 94.0 fL AO Workflow SS Monocyte, Absolute 0.7 103/mcL Normal 0.2 - 1.0 10^3/mcL AO Workflow SS Monocytes/100 WBC (Bld) 6.5 % Normal 1.7 - 13.0 % AO Workflow SS Neutrophil, Absolute 6.2 103/mcL Normal 2.9 - 6 .2 10^3/mcL AO Workflow SS Neutrophils/100 WBC (Bld) 61.1 % Normal 37.0 - 80.0 % AO Workflow SS Platelet mean volume (Bld) [Entitic vol] 7.9 fL Normal 7.4 - 10.4 fL AO Workflow SS Platelets (Bld) [#/Vol] 232 103/mcL Normal 130 - 400 10^3/mcL AO Workflow SS Potassium [Moles/Vol] 5.3 mmol/L High 3.5 - 5.1 mmol/L AO ADM SS Protein [Mass/Vol] 8.5 G/dL High 6.4 - 8.2 G/dL AO ADM SS RBC (Bld) [#/Vol] 4.73 106/mcL Normal 4.20 - 5.4 0 10^6/mcL AO Workflow SS Sodium [Moles/Vol] 135 mmol/L Low 136 - 145 mmol/L AO ADM SS Urea nitrogen [Mass/Vol] 15 mg/dL Normal 7 - 18 mg/dL AO ADM SS Urea nitrogen/Creatinine [Mass ratio] 17 ratio Normal 7 - 27 ratio AO ADM SS WBC (Bld) [#/Vol] 10.2 103/mcL Normal 4.6 - 10.8 10^3/mcL AO Workflow SS LABORATORYOrdered By: Adam Herrera on 07-26-2023 Cholesterol [Mass/Vol] 169 mg/dL Normal 0 - 200 mg/dL AO ADM SS Comment on above: Interpretive Data: C holesterol Reference Interval: Less than 200 Desirable 200-239 Borderline high risk 240 and above High risk Cholesterol in HDL [Mass/Vol] 33 mg/dL Low 40 - 60 mg/dL AO ADM SS Cholesterol in LDL [Mass/Vol] 67 mg/dL Normal 0 - 130 mg/dL AO ADM SS Triglyceride [Mass/Vol] 344 mg/dL High 0 - 150 mg/dL AO ADM SS Comment on above: Interpretive Data: T riglyceride Reference Interval: Less than 150 Normal 150-199 Borderline high risk 200-499 High risk 500 or higher Very high risk LIPIDon 07-26-2023 Cholesterol [Mass/Vol] 169 mg/dL Normal 0-200 [facility] ([place] Comment on above: Result Comment: Chol esterol Reference Interval: Less than 200 Desirable 200-239 Borderline high risk 240 and above High risk Performed By: #### T SH, CMP, GFR #### [address] [address] Cholesterol in HDL [Mass/Vol] 33 mg/dL Low 40-60 [facility] ([place] Comment on above: Performed By: #### T SH, CMP, GFR #### [address] [address] Cholesterol in LDL [Mass/Vol] 67 mg/dL Normal 0-130 [facility] ([place] Comment on above: Performed By: #### T SH, CMP, GFR #### [address] [address] Triglyceride [Mass/Vol] 344 mg/dL High 0-150 [facility] ([place]) Comment on above: Result Comment: Trig lyceride Reference Interval: Less than 150 Normal 150-199 Borderline high risk 200-499 High risk 500 or higher Very high risk Performed By: #### T SH, CMP, GFR #### [address] [address] .Auto Diffon 06-08-2023 Basophil, Absolute 0.1 10 3/mcL Normal 0.0-0.2 [facility] ([place] Comment on above: Performed By: #### T SH, CMP, GFR #### [address] [address] Basophils/100 WBC (Bld) 0.7 % Normal 0.0-2.5 [facility] ([place] Comment on above: Performed By: #### T SH, CMP, GFR #### [address] [address] Eosinophil, Absolute 0.5 10 3/mcL High 0.0-0.4 [facility] ([place] Comment on above: Performed By: #### T SH, CMP, GFR #### [address] [address] Eosinophils/100 WBC (Bld) 5.0 % Normal 0.0-7.0 [facility] ([place] Comment on above: Performed By: #### T SH, CMP, GFR #### [address] [address] Lymphocyte, Absolute 2.9 10 3/mcL Normal 0.8-3.9 [facility] ([place] Comment on above: Performed By: #### T SH, CMP, GFR #### [address] [address] Lymphocytes/100 WBC (Bld) 28.4 % Normal 10.0-50.0 [facility] ([place] Comment on above: Performed By: #### T SH, CMP, GFR #### [address] [address] Monocyte, Absolute 0.5 10 3/mcL Normal 0.2-1.0 [facility] ([place] Comment on above: Performed By: #### T SH, CMP, GFR #### [address] [address] Monocytes/100 WBC (Bld) 5.0 % Normal 1.7-13.0 [facility] ([place] Comment on above: Performed By: #### T SH, CMP, GFR #### [address] [address] Neutrophils/100 WBC (Bld) 60.9 % Normal 37.0-80.0 [facility] ([place] Comment on above: Performed By: #### T SH, CMP, GFR #### [address] [address] .GFRon 06-08-2023 GFR 66 ml/min/1.73sqm Normal [facility] ([place]) Comment on above: Result Comment: GFR Population mean for , Non- Americans Ages 20-29 = 116 mL/min/1.73 sq.m. Ages 30-39 = 107 mL/min/1.73 sq.m. Ages 40-49 = 99 mL/min/1.73 sq.m. Ages 50-59 = 93 mL/min/1.73 sq.m. Ages 60-69 = 85 mL/min/1.73 sq.m. Ages 70+ = 75 mL/min/1.73 sq.m. Chronic Kidney Disease: Less than 60 mL/min/1.73 square meters End Stage Renal Disease: Less than 15 mL/min/1.73 square meters Performed By: #### T SH, CMP, GFR #### [address] [address] GFR Non- 55 ml/min/1.73sqm Normal [facility] ([place] Comment on above: Result Comment: GFR Population mean for , Non- Americans Ages 20-29 = 116 mL/min/1.73 sq.m. Ages 30-39 = 107 mL/min/1.73 sq.m. Ages 40-49 = 99 mL/min/1.73 sq.m. Ages 50-59 = 93 mL/min/1.73 sq.m. Ages 60-69 = 85 mL/min/1.73 sq.m. Ages 70+ = 75 mL/min/1.73 sq.m. Chronic Kidney Disease: Less than 60 mL/min/1.73 square meters End Stage Renal Disease: Less than 15 mL/min/1.73 square meters Performed By: #### T GIOVANNA, CMP, GFR #### [address] [address] .MDWon 06-08-2023 Monocyte Distribution Width 22.23 High 0.00-20.00 [facility] ([place] Comment on above: Result Comment: For adults in ED, MDW>20.0 may be associated with a higher risk of sepsis during the first 12hrs of hospital admission Performed By: #### T GIOVANNA, CMP, GFR #### [address] [address] .NEUABSon 06-08-2023 Neutrophil, Absolute 6.2 10 3/mcL Normal 2.9-6.2 [facility] ([place] Comment on above: Performed By: #### T SH, CMP, GFR #### [address] [address] .Urinalysis Microscopic (AO) on 06-08-2023 UA RBC 10-15 Abnormal None Seen [facility] ([place] Comment on above: Performed By: #### T SH, CMP, GFR #### [address] [address] UA Squam Epithelial 0-5 Abnormal None Seen [facility] ([place] Comment on above: Performed By: #### T SH, CMP, GFR #### [place] [address] UA WBC LOADED Abnormal None Seen [facility] ([place] Comment on above: Performed By: #### T SH, CMP, GFR #### [place] [address] CBCon 06-08-2023 Erythrocyte distribution width (RBC) [Ratio] 16.3 % High 11.5-14.5 [facility] ([place] Comment on above: Performed By: #### C BC, BALTAZAR, ANEU, MDW, LIP, CMP, GFR #### [place] [address] Hematocrit (Bld) [Volume fraction] 38.8 % Normal 37.0-47.0 [facility] ([place] Comment on above: Performed By: #### C BC, BALTAZAR, ANEU, MDW, LIP, CMP, GFR #### [place] [address] Hgb 13.1 G/dL Normal 12.0-16.0 [facility] ([place] Comment on above: Performed By: #### C BC, ADIFF, ANEU, MDW, LIP, CMP, GFR #### [place] [address] MCH (RBC) [Entitic mass] 28.0 pg Normal 27.0-31.2 [facility] ([place] Comment on above: Performed By: #### C BC, BALTAZAR, ANEU, MDW, LIP, CMP, GFR #### [place] [address] MCHC 33.8 G/dL Normal 33.0-37.0 [facility] ([place] Comment on above: Performed By: #### C BC, ADIFF, ANEU, MDW, LIP, CMP, GFR #### [place] [id number] MCV (RBC) [Entitic vol] 82.7 fL Normal 80.0-94.0 [facility] ([place] Comment on above: Performed By: #### C CAPRI, BALTAZAR, RAVEN, MDW, LIP, CMP, GFR #### [address] [address] Platelet 216 10 3/mcL Normal 130-400 [facility] ([place] Comment on above: Performed By: #### C CAPRI, BALTAZAR, RAVEN, MDW, LIP, CMP, GFR #### [address] [address] Platelet mean volume (Bld) [Entitic vol] 7.8 fL Normal 7.4-10.4 [facility] ([place] Comment on above: Performed By: #### C CAPRI, BALTAZAR, RAVEN, MDW, LIP, CMP, GFR #### [address] [address] RBC 4.68 10 6/mcL Normal 4.20-5.40 [facility] ([place] Comment on above: Performed By: #### C CAPRI, BALTAZAR, RAVEN, MDW, LIP, CMP, GFR #### [address] [address] WBC 10.2 10 3/mcL Normal 4.6-10.8 [facility] ([place] Comment on above: Performed By: #### C CAPRI, BALTAZAR, RAVEN, MDW, LIP, CMP, GFR #### [address] [address] CMPon 06-08-2023 Albumin Level 3.4 G/dL Low 3.5-5.0 [facility] ([place] Comment on above: Performed By: #### T SH, CMP, GFR #### [address] [address] Albumin/Globulin [Mass ratio] 0.7 {ratio} Low 1.1-2.5 [facility] ([place] Comment on above: Performed By: #### T SH, CMP, GFR #### [address] [address] ALP [Catalytic activity/Vol] 242 U/L High 40-135 [facility] ([place] Comment on above: Performed By: #### T SH, CMP, GFR #### [address] [address] ALT [Catalytic activity/Vol] 68 U/L High 14-59 [facility] ([place] Comment on above: Performed By: #### T SH, CMP, GFR #### [address] [address] AST [Catalytic activity/Vol] 53 U/L High 10-40 [facility] ([place] Comment on above: Performed By: #### T SH, CMP, GFR #### [address] [address] Bili Total 0.5 mg/dL Normal 0.2-1.0 [facility] ([place] Comment on above: Result Comment: Use of this assay is not recommended for patients undergoing treatment with eltrombopag due to the potential for falsely elevated results. Performed By: #### T GIOVANNA, CMP, GFR #### [address] [address] BUN/Creatinine Ratio 14 ratio Normal 7-27 [facility] ([place] Comment on above: Performed By: #### T GIOVANNA, CMP, GFR #### [address] [address] Calcium [Mass/Vol] 8.9 mg/dL Normal 8.4-10.2 [facility] ([place]) Comment on above: Performed By: #### T SH, CMP, GFR #### [address] [address] Chloride [Moles/Vol] 96 mmol/L Low 98-107 [facility] ([place]) Comment on above: Performed By: #### T SH, CMP, GFR #### [address] [address] CO2 [Moles/Vol] 31 mmol/L High 22-29 [facility] ([place]) Comment on above: Performed By: #### T SH, CMP, GFR #### [address] [address] Creatinine [Mass/Vol] 1.04 mg/dL High 0.55-1.02 [facility] ([place]) Comment on above: Performed By: #### T SH, CMP, GFR #### [address] [address] Electrolyte Balance 5.0 mEq/L Normal 4.0-15.0 [facility] [facility] ([place] Comment on above: Performed By: #### T SH, CMP, GFR #### [address] [address] Globulin 5.0 G/dL Normal [facility] ([place]) Comment on above: Performed By: #### T SH, CMP, GFR #### [address] [address] Glucose [Mass/Vol] 355 mg/dL High 70-105 [facility] ([place]) Comment on above: Performed By: #### T SH, CMP, GFR #### [address] [address] Potassium [Moles/Vol] 4.6 mmol/L Normal 3.5-5.1 [facility] ([place]) Comment on above: Performed By: #### T SH, CMP, GFR #### [address] [address] Sodium [Moles/Vol] 132 mmol/L Low 136-145 [facility] ([place] Comment on above: Performed By: #### T SH, CMP, GFR #### [address] [address] Total Protein 8.4 G/dL High 6.4-8.2 [facility] ([place] Comment on above: Performed By: #### T SH, CMP, GFR #### [address] [address] Urea nitrogen [Mass/Vol] 15 mg/dL Normal 7-18 [facility] ([place] Comment on above: Performed By: #### T SH, [facility], GFR #### [id number] [place], [place] [address] CT ABD/PELVIS W/ IV CONTRAST ONLYon 06-08-2023 CT ABD/PELVIS W/ IV CONTRAST ONLY ORIGINAL EXAMINATION: CT OF THE ABDOMEN AND PELVIS WITH [id number]/18/2023 5:[address] ABDOMEN/PELVIS WITH CONTRAST Multiple axial images were obtained with coronal and sagittal reconstructions. CLINICAL INFORMATION: TECHNIQUE: CT of the abdomen and pelvis was performed with the administration of intravenous contrast. Multiplanar reformatted images are provided for review. Automated exposure control, iterative reconstruction, and/or weight based adjustment of the mA/kV was utilized to reduce the radiation dose to as low as reasonably achievable. COMPARISON: None HISTORY: ORDERING SYSTEM PROVIDED HISTORY: Reason for Exam: [id number]^ FINDINGS: Lung bases/lower mediastinum: Part solid pulmonary nodule in the left lower lobe with solid component measuring 7 mm and total ground-glass component measuring 11 mm. There is also a 4 mm part solid nodule in the right middle lobe with 1 mm solid component. Streaky consolidations seen within the inferior lingula. Mitral annular calcifications. Coronary artery calcifications. Evaluation of the abdomen is limited secondary to patient body habitus. Liver: Liver is enlarged measuring 25.3 cm. Mild nodular contour of the liver. Gallbladder/bile ducts: Status post cholecystectomy. Pancreas: Unremarkable. Spleen: Spleen is enlarged measuring 18.2 cm. Scattered calcifications, sequela of prior granulomatous disease. Adrenal glands: Unremarkable. Kidney/ureter/bladder: Symmetric enhancement of the kidneys. There are a few nonobstructing nephroliths within each kidney, largest of which measures 3 mm in the left kidney. No hydronephrosis. The ureters are nondilated. There is mild urinary bladder wall thickening, somewhat asymmetric to the left and anterior margin of the bladder. Bowel: No dilated bowel or evidence of obstruction. No evidence of acute bowel wall thickening. Free air/Free Fluid: Unremarkable. Reproductive organs: An intrauterine device is seen within the uterus. Vascular/lymph nodes: There is atherosclerosis. A no aortic aneurysm or lymphadenopathy by size criteria. Bones/soft tissues: Degenerative changes in the spine. No evidence of acute fracture or aggressive osseous lesion. IMPRESSION: 1. Mild urinary bladder wall thickening which can be seen with cystitis. Bladder wall thickening is somewhat asymmetric and neoplasm is not excluded. 2. Nonobstructing nephrolithiasis. 3. Hepatosplenomegaly. Liver contour is mildly nodular suggesting cirrhotic change. 4. Multiple pulmonary nodules, largest of which is a part solid left lower lobe 11 mm nodule. Per Fleischner Society Guidelines, recommend a non-contrast Chest CT at 3-6 months. 5. Inferior lingular subsegmental airspace disease, likely atelectasis although pneumonia is not excluded. Interpreted by: Shayne Ann Preliminary Report By: Shayne Ann Electronically signed By Shayne Ann Dictated Date: 06/08/2023 5:51:41 PM Prelim Date: 06/08/2023 6:01:19 PM Sign Date: 06/08/2023 6:01:19 PM Ordering Provider: CINDY ROGERS Normal [facility] ([place] LIPon 06-08-2023 Lipase Level 27 U/L Normal 16-77 [facility] [place] Comment on above: Performed By: #### T SH, CMP, GFR #### [address] [address] UAon 06-08-2023 Color (U) Yellow Normal [facility] [place] Comment on above: Performed By: #### T SH, CMP, GFR #### [address] [address] Glucose (U) [Mass/Vol] 500 mg/dL Abnormal Negative [facility] [place] Comment on above: Performed By: #### T SH, CMP, GFR #### [address] [address] Ketones Ql (U) Negative Normal Negative [facility] [place] Comment on above: Performed By: #### T SH, CMP, GFR #### [address] [address] UA Appear Cloudy Abnormal Clear [facility] [place] Comment on above: Performed By: #### T SH, CMP, GFR #### [address] [address] UA Blood Moderate Abnormal Negative [facility] [place] Comment on above: Performed By: #### T SH, CMP, GFR #### [address] [address] UA Leuk Est Trace Abnormal Negative [facility] [place] Comment on above: Performed By: #### T SH, CMP, GFR #### [address] [address] UA Nitrite Negative Normal Negative [facility] [place] Comment on above: Performed By: #### T SH, CMP, GFR #### [address] [address] UA pH 6.0 Normal 5.0 - 8.0 [facility] [place] Comment on above: Performed By: #### T SH, CMP, GFR #### [address] [address] UA Protein Trace Normal Negative [facility] [place] Comment on above: Performed By: #### T SH, CMP, GFR #### [address] [address] UA Spec Grav 1.020 Normal 1.015-1.025 [facility] [place] Comment on above: Performed By: #### T SH, CMP, GFR #### [address] [address] UA Specimen Type Void Normal [facility] [place] Comment on above: Performed By: #### T SH, CMP, GFR #### [address] [address] UA Urobilinogen 0.2 E.U./dL Normal 0.2-1.0 [facility] [place] Comment on above: Performed By: #### T SH, CMP, GFR #### [address] [address] Urobilinogen (U) [Mass/Vol] Negative Normal Negative [facility] [place] Comment on above: Performed By: #### T SH, CMP, GFR #### [address] [address] Absolute lymphocyte countOrd ered By: Sergo Bustillos on 04-20-2023 Lymphocytes Auto (Unsp spec) [#/Vol] 2.51 10*3/uL 0.83-4.51 [facility] Basophil percentageOrdered B y: Sergo Bustillos on 04-20-2023 Basophils/100 WBC (Bld) 1.3 % 0-1 [facility] Chloride [Moles/Vol] 92 mmol/L 98-107 [facility] Eosinophils/100 WBC (Bld) 4.2 % 0-5 [facility] Glucose [Mass/Vol] 347 mg/dL 74-106 [facility] Comment on above: Glucose result great er than or equal to 200 mg/dLsuggests DIABETES MELLITUS per A.D.A. criteria. Neutrophils (Bld) [#/Vol] 5.4 10*3/uL 2.0-7.7 [facility] Neutrophils/100 WBC (Bld) 58.1 % 47-70 [facility] Potassium [Moles/Vol] 4.2 mmol/L 3.5-5.1 [facility] Sodium [Moles/Vol] 128 mmol/L 136-145 [facility] WBC (Bld) [#/Vol] 9.2 10*3/uL 4.4-11.0 [facility] Blood erythrocytes count (nu mber/volume)Ordered By: Sergo Bustillos on 04-20-2023 RBC (Bld) [#/Vol] 4.58 10*6/uL 4.2-5.4 [facility] Blood hemoglobin measurement (mass/volume)Ordered By: Sergo Bustillos on 04-20-2023 Hemoglobin (Bld) [Mass/Vol] 12.3 g/dL 12.0-15.0 [facility] Blood lymphocytes/100 leukoc ytesOrdered By: Sergo Bustillos on 04-20-2023 Lymphocytes/100 WBC (Bld) 27.2 % 19-41 [facility] Blood monocytes/100 leukocyt esOrdered By: Sergo Bustillos on 04-20-2023 Monocytes/100 WBC (Bld) 5.5 % 0-10 [facility] Blood platelet mean volumeOr dered By: Sergo Bustillos on 04-20-2023 Platelet mean volume (Bld) [Entitic vol] 10.5 fL 6.2-12.0 [facility] Determination of erythrocyte mean corpuscular volume (MCV)Ordered By: Sergo Bustillos on 04-20-2023 MCV (RBC) [Entitic vol] 84.7 fL 81-99 [facility] Glucose Glucometer (BldC) [M ass/Vol]Ordered By: Sergo Bustillos on 04-20-2023 Glucose [Mass/Vol] 352 mg/dL 74-106 [facility] Comment on above: MANAGEMENT OF PATIEN T CARE PER NURSING PROTOCOL Hematocrit Auto (Bld) [Volum e fraction]Ordered By: Sergo Bustillos on 04-20-2023 Hematocrit (Bld) [Volume fraction] 38.8 % 37-47 [facility] - Chemistry and C hemistry - challengeOrdered By: Sergo Bustillos on 04-20-2023 CO2 [Moles/Vol] 29.0 mmol/L 21.0-32.0 [facility] Urea nitrogen/Creatinine [Mass ratio] 25.5 mg/mg 10-20 [facility] - Hematology and Cell countsOrdered By: Sergo Bustillos on 04-20-2023 Erythrocyte distribution width (RBC) [Entitic vol] 45.1 fL 35.1-43.9 [facility] Erythrocyte distribution width (RBC) [Ratio] 14.8 % 11.6-14.6 [facility] Immature granulocytes/100 WBC (Bld) 3.700 % 0.0-0.9 [facility] Comment on above: IG% - Immature Granu locytes (promyelocytes, myelocytes and metamyelocytes) > 1% indicates that a LEFT SHIFT is Present. MCH (RBC) [Entitic mass] 26.9 pg 27.0-32.0 [facility] Nucleated RBC/100 WBC (Bld) [Ratio] 0 % 0-5 [facility] MCHC Auto (RBC) [Mass/Vol]Or dered By: Serog Bustillos on 04-20-2023 MCHC (RBC) [Mass/Vol] 31.7 g/dL 32-36 [facility] No Panel InformationOrdered By: Sergo Bustillos on 04-20-2023 Estimated Creatinine Clearance Calc 46.47 ml/min [facility] Estimated GFR (MDRD) Amer 72 mL/min >60 [facility] Comment on above: GFR Calc Estimated GFR (MDRD) Non-Af Amer 60 mL/min >60 [facility] Comment on above: Non- GFR Calc Platelets bldOrdered By: Omer Bustillos on 04-20-2023 Platelets (Bld) [#/Vol] 213 10*3/uL 150-450 [facility] Respiratory pathogens detect ion panel by molecular detection methodOrdered By: Cecilia Villa on 04-20-2023 Respiratory pathogens DNA and RNA panel [place]+probe (Resp) [facility] Serum or plasma calcium janie urement (mass/volume)Ordered By: Sergo Bustillos on 04-20-2023 Calcium [Mass/Vol] 9.2 mg/dL 8.5-10.1 [facility] Serum or plasma creatinine m easurement (mass/volume)Ordered By: Sergo Bustillos on 04-20-2023 Creatinine [Mass/Vol] 1.02 mg/dL 0.55-1.02 [facility] Comment on above: The validity of the calculated GFR & GFRAA in patients over 70 years has not been determined. Clinical correlation is essential. Serum or plasma urea nitroge n measurement (mass/volume)Ordered By: Sergo Bustillos on 04-20-2023 Urea nitrogen [Mass/Vol] 26 mg/dL 7-18 [facility] Thin prep Papanicolaou smear with manual screeningOrdered By: Sergo Bustillos on 04-20-2023 Thin prep Papanicolaou smear with manual screening 7 5-15 [facility] Basophil percentageOrdered B y: Cecilia Villa on 04-19-2023 Basophil percentage 4.0 mg/dL 2.5-4.9 [facility] - Chemistry and C hemistry - challengeOrdered By: Cecilia Villa on 04-19-2023 Magnesium [Mass/Vol] 1.9 mg/dL 1.6-2.6 [facility] Assessment of wrist artery p atency prior to arterial punctureOrdered By: Cecilia Villa on 04-18-2023 Arterial patency Wrist artery --pre arterial puncture Positive [facility] Base excessOrdered By: Audi Villa on 04-18-2023 Base excess Calc (BldV) [Moles/Vol] 6 mmol/L -2-2 [facility] Basophil percentageOrdered B y: Cecilia Villa on 04-18-2023 Basophil percentage 30.6 mmol/L 22-26 [facility] Basophils/100 WBC (Bld) 89 % 95-99 [facility] Basophil percentageOrdered B y: Candy Archuleta on 04-18-2023 Bilirubin [Mass/Vol] 0.70 mg/dL 0.20-1.00 [facility] Comment on above: For patients on eltr ombopag therapy, use of Dimension [place] TBIL is not recommended. Protein [Mass/Vol] 8.7 g/dL 6.4-8.2 [facility] Basophil percentage >100 SEEN /hpf 0-5 [facility] Bilirubin Test strip Ql (U)O rdered By: Candy Archuleta on 04-18-2023 Bilirubin Ql (U) Negative Negative [facility] CO2 (BldA) [Partial pressure ]Ordered By: Cecilia Villa on 04-18-2023 CO2 (Bld) [Partial pressure] 46.4 mm[Hg] 35-45 [facility] Culture, urineOrdered By: Ramiro Archuleta on 04-18-2023 Bacteria identified Cx Nom (U) Escherichia coli [facility] Ketones Test strip Ql (U)Ord ered By: Candy Archuleta on 04-18-2023 Ketones Ql (U) Negative Negative [facility] - Chemistry and C hemistry - challengeOrdered By: Candy Archuleta on 04-18-2023 ALP [Catalytic activity/Vol] 220 U/L 45-117 [facility] ALT [Catalytic activity/Vol] 50 U/L 13-56 [facility] Globulin (S) [Mass/Vol] 5.7 g/dL 2.2-4.2 [facility] Lipase [Catalytic activity/Vol] 26 U/L 13-75 [facility] Comment on above: Please note:LIPASE r evised reference range effective 22. New Lipase methodology. Expected to produce lower values than the previous assay method. NEW Reference Range: 13 - 75 U/L Natriuretic peptide B (Bld) [Mass/Vol] 6.4 pg/mL 0-100 [facility] Mucus LM Ql (Urine sed)Order ed By: Candy Archuleta on 04-18-2023 Mucus Ql (Urine sed) 0 SEEN /hpf [facility] Nitrite Test strip Ql (U)Ord ered By: Candy Archuleta on 04-18-2023 Nitrite Ql (U) Negative Negative [facility] No Panel InformationOrdered By: Cecilia Villa on 04-18-2023 Blood Gas Sample Site L Radial [facility] Blood Gas Specimen Type ART [facility] Blood Gas Total CO2 32 mmol[facility]L [facility] [place] [facility] Vent Mode Not entered [facility] Oxygen Delivery Device Room Air [facility] D-Dimer Quantitative (PE/DVT) 0.54 FEU/ug/m 0.27-0.49 [facility] Comment on above: CRITICAL VALUE VERIF IED. CALLED TO DILAN TYLER RN ER 04/18/23 [facility]8 Josef Hernandez.RESULTS READ BACK BY SAME . D-Dimer ELEVATED (>0.49): Additional studies and clinicalassessments are indicated to conclude diagnosis of:Deep Vein Thrombosis (DVT) or Pulmonary Embolism (PE) Oxygen (BldA) [Partial press ure]Ordered By: Cecilia Villa on 04-18-2023 Oxygen (Bld) [Partial pressure] 55 mmHG 75-100 [facility] Protein Test strip Ql (U)Ord ered By: Candy Archuleta on 04-18-2023 Protein Ql (U) 30 mg/dl Negative [facility] Serum or plasma albumin janie urement (mass/volume)Ordered By: Candy Archuleta on 04-18-2023 Albumin [Mass/Vol] 3.0 g/dL 3.2-5.0 [facility] Serum or plasma albumin/glob ulin mass ratioOrdered By: Candy Archuleta on 04-18-2023 Albumin/Globulin [Mass ratio] 0.5 {ratio} 0.9-2.4 [facility] Squamous epithelial cells de tection in urine sediment by light microscopyOrdered By: Candy Archuleta on 04-18-2023 Epithelial cells.squamous LM Ql (Urine sed) 10-25 SEEN /hpf 5-10 [facility] Thin prep Papanicolaou smear with manual screeningOrdered By: Candy Archuleta on 04-18-2023 Thin prep Papanicolaou smear with manual screening 48 U/L 15-37 [facility] Comment on above: Moderate Hemolysis, Result may be falsely increased. Urine blood detectionOrdered By: Candy Archuleta on 04-18-2023 RBC Ql (U) 150 /ul Negative [facility] RBC Ql (U) 10-25 SEEN /hpf 0-5 [facility] Urine clarityOrdered By: Maria T Archuleta on 04-18-2023 Clarity (U) Cloudy Clear [facility] Urine color determinationOrd ered By: Candy Archuleta on 04-18-2023 Color (U) Yellow Yellow [facility] Urine glucose detectionOrder ed By: Candy Archuleta on 04-18-2023 Glucose Ql (U) 1000 mg/dl Normal [facility] Urine leukocyte esterase det ection by dipstickOrdered By: Candy Archuleta on 04-18-2023 Leukocyte esterase Test strip Ql (U) 500 /ul Negative [facility] Urine pHOrdered By: Candy hendrix on 04-18-2023 pH (U) 6.0 [pH] 5.0 - 8.0 [facility] Urine sediment bacteria coun t by microscopy (number/high power field)Ordered By: Candy Archuleta on 04-18-2023 Bacteria LM.HPF (Urine sed) [#/Area] 2 /[HPF] None Seen [facility] Urine specific gravity measu rementOrdered By: Candy Archuleta on 04-18-2023 Specific gravity (U) [Rel density] 1.015 1.002-1.030 [facility] Urobilinogen Auto test strip Ql (U)Ordered By: Candy Archuleta on 04-18-2023 Urobilinogen Ql (U) 1 mg/dl Normal [facility] pH measurementOrdered By: Yared Villa on 04-18-2023 pH (Unsp spec) 7.43 [pH] 7.35-7.45 [facility] Basophil percentageOrdered B y: Jaziel Drake on 04-17-2023 Cholesterol [Mass/Vol] 135 mg/dL <200 [facility] Comment on above: <200 mg/dL Desirable 200-240 mg/dL Borderline >240 mg/dL High Risk Triglyceride [Mass/Vol] 314 mg/dL <199 [facility] Comment on above: The drugs N-Acetylcy steine and Metamizole may falsely depress this assay.Serum Triglycerides Reference Interval Normal <150 mg/dL Borderline high 150 - 199 mg/dL High 200 - 499 mg/dL Very High > or = 500 mg/dL Laboratory - Chemistry and C hemistry - challengeOrdered By: Jaziel Drake on 04-17-2023 Free T4 [Mass/Vol] 0.75 ng/dL 0.76-1.46 [facility] No Panel InformationOrdered By: Jaziel Drake on 04-17-2023 Thyroid Stimulating Hormone (TSH) 3.79 uIU/mL 0.358-3.74 [facility] Vitamin D 25-Hydroxy 22.2 ng/mL [facility] Comment on above: Vitamin D 25(OH) Sta tus Range Deficiency <20 ng/mL (50nmol/L) Insufficiency 20 - 30 ng/mL (50 - 75 nmol/L) Sufficiency 30 - 100 ng/mL (75 - 250 nmol/L) Toxicity >100 ng/mL (>250 nmol/L) Serum or plasma cholesterol in HDL measurement (mass/volume)Ordered By: Jaziel Drake on 04-17-2023 Cholesterol in HDL [Mass/Vol] 28 mg/dL >40 [facility] Comment on above: The drugs N-Acetylcy steine and Metamizole may falsely depress this assay. Reference Range HDL <40 mg/dL Low HDL Cholesterol HDL >or= 60 mg/dL High HDL Cholesterol Serum or plasma cholesterol in VLDL measurement (mass/volume)Ordered By: Jaziel Drake on 04-17-2023 Cholesterol in VLDL [Mass/Vol] 63 mg/dL 5-40 [facility] Serum or plasma low density lipoprotein (LDL) cholesterol measurement (mass/volume)Ordered By: Jaziel Drake on 04-17-2023 Cholesterol in LDL [Mass/Vol] 44 mg/dL 0-130 [facility] - Hematology and Cell countson 02-18-2023 HbA1c (Bld) [Mass fraction] 10.8 % 4.2-6.3 [facility] Absolute lymphocyte countOrd ered By: Joel Mendoza on 01-20-2023 Lymphocytes Auto (Unsp spec) [#/Vol] 2.86 10*3/uL 0.83-4.51 [facility] Amorphous sediment detection in urine sediment by light microscopyOrdered By: Joel Mendoza on 01-20-2023 Amorphous sediment LM Ql (Urine sed) 1+ URATE [facility] Basophil percentageOrdered B y: Joel Mendoza on 01-20-2023 Basophil percentage 50-100 SEEN /hpf 0-5 [facility] Basophils/100 WBC (Bld) 0.8 % 0-1 [facility] Chloride [Moles/Vol] 99 mmol/L 98-107 [facility] Eosinophils/100 WBC (Bld) 2.0 % 0-5 [facility] Glucose [Mass/Vol] 148 mg/dL 74-106 [facility] Comment on above: Fasting Glucose resu lt greater than or equal to 126 mg/dL suggests DIABETES MELLITUS per A.D.A. criteria. Neutrophils (Bld) [#/Vol] 6.9 10*3/uL 2.0-7.7 [facility] Neutrophils/100 WBC (Bld) 64.6 % 47-70 [facility] Potassium [Moles/Vol] 4.9 mmol/L 3.5-5.1 [facility] Comment on above: Moderate Hemolysis, Result may be falsely increased. Sodium [Moles/Vol] 132 mmol/L 136-145 [facility] WBC (Bld) [#/Vol] 10.7 10*3/uL 4.4-11.0 [facility] Bilirubin Test strip Ql (U)O rdered By: Joel Mendoza on 01-20-2023 Bilirubin Ql (U) 1 mg/dL Negative [facility] Comment on above: COLOR OF URINE MAY A FFECT DIPSTICK RESULTS. Blood erythrocytes count (nu mber/volume)Ordered By: Joel Mendoza on 01-20-2023 RBC (Bld) [#/Vol] 4.89 10*6/uL 4.2-5.4 [facility] Blood hemoglobin measurement (mass/volume)Ordered By: Joel Mendoza on 01-20-2023 Hemoglobin (Bld) [Mass/Vol] 12.8 g/dL 12.0-15.0 [facility] Blood lymphocytes/100 leukoc ytesOrdered By: Joel Mendoza on 01-20-2023 Lymphocytes/100 WBC (Bld) 26.6 % 19-41 [facility] Blood monocytes/100 leukocyt esOrdered By: Joel Mendoza on 01-20-2023 Monocytes/100 WBC (Bld) 5.4 % 0-10 [facility] Blood platelet mean volumeOr dered By: Joel Mendoza on 01-20-2023 Platelet mean volume (Bld) [Entitic vol] 10.3 fL 6.2-12.0 [facility] Culture, urineOrdered By: Alisa Mendoza on 01-20-2023 Bacteria identified Cx Nom (U) Presumptive Lactobacillus sp. [facility] Determination of erythrocyte mean corpuscular volume (MCV)Ordered By: Joel Mendoza on 01-20-2023 MCV (RBC) [Entitic vol] 82.4 fL 81-99 [facility] Hematocrit Auto (Bld) [Volum e fraction]Ordered By: Joel Mendoza on 01-20-2023 Hematocrit (Bld) [Volume fraction] 40.3 % 37-47 [facility] Ketones Test strip Ql (U)Ord ered By: Joel Mendoza on 01-20-2023 Ketones Ql (U) 5 mg/dl Negative [facility] - Chemistry and C hemistry - challengeOrdered By: Joel Mendoza on 01-20-2023 CO2 [Moles/Vol] 30.0 mmol/L 21.0-32.0 [facility] Natriuretic peptide B (Bld) [Mass/Vol] 6.0 pg/mL 0-100 [facility] Urea nitrogen/Creatinine [Mass ratio] 16.5 mg/mg 10-20 [facility] - Hematology and Cell countsOrdered By: Joel Mendoza on 01-20-2023 Erythrocyte distribution width (RBC) [Entitic vol] 43.8 fL 35.1-43.9 [facility] Erythrocyte distribution width (RBC) [Ratio] 14.7 % 11.6-14.6 [facility] Immature granulocytes/100 WBC (Bld) 0.600 % 0.0-0.9 [facility] Comment on above: IG% - Immature Granu locytes (promyelocytes, myelocytes and metamyelocytes) > 1% indicates that a LEFT SHIFT is Present. MCH (RBC) [Entitic mass] 26.2 pg 27.0-32.0 [facility] Nucleated RBC/100 WBC (Bld) [Ratio] 0 % 0-5 [facility] MCHC Auto (RBC) [Mass/Vol]Or dered By: Joel Mendoza on 01-20-2023 MCHC (RBC) [Mass/Vol] 31.8 g/dL 32-36 [facility] Mucus LM Ql (Urine sed)Order ed By: Joel Mendoza on 01-20-2023 Mucus Ql (Urine sed) 0 SEEN /hpf [facility] Nitrite Test strip Ql (U)Ord ered By: Joel Mendoza on 01-20-2023 Nitrite Ql (U) Negative Negative [facility] No Panel InformationOrdered By: Joel Mendoza on 01-20-2023 Estimated Creatinine Clearance Calc 39.17 ml/min [facility] Estimated GFR (MDRD) Amer 59 mL/min >60 [facility] Comment on above: GFR Calc Estimated GFR (MDRD) Non-Af Amer 49 mL/min >60 [facility] Comment on above: Non- GFR Calc Thyroid Stimulating Hormone (TSH) 4.15 uIU/mL 0.358-3.74 [facility] Platelets bldOrdered By: Kimi Mendoza on 01-20-2023 Platelets (Bld) [#/Vol] 236 10*3/uL 150-450 [facility] Protein Test strip Ql (U)Ord ered By: Joel Mendoza on 01-20-2023 Protein Ql (U) 100 mg/dl Negative [facility] Serum or plasma calcium janie urement (mass/volume)Ordered By: Joel Mendoza on 01-20-2023 Calcium [Mass/Vol] 9.2 mg/dL 8.5-10.1 [facility] Serum or plasma creatinine m easurement (mass/volume)Ordered By: Joel Mendoza on 01-20-2023 Creatinine [Mass/Vol] 1.21 mg/dL 0.55-1.02 [facility] Comment on above: The validity of the calculated GFR & GFRAA in patients over 70 years has not been determined. Clinical correlation is essential. Serum or plasma urea nitroge n measurement (mass/volume)Ordered By: Joel Mendoza on 01-20-2023 Urea nitrogen [Mass/Vol] 20 mg/dL 7-18 [facility] Squamous epithelial cells de tection in urine sediment by light microscopyOrdered By: Joel Mendoza on 01-20-2023 Epithelial cells.squamous LM Ql (Urine sed) 0-5 SEEN /hpf 5-10 [facility] Thin prep Papanicolaou smear with manual screeningOrdered By: Joel Mendoza on 01-20-2023 Thin prep Papanicolaou smear with manual screening 3 5-15 [facility] Urine blood detectionOrdered By: Joel Mendoza on 01-20-2023 RBC Ql (U) 250 /ul Negative [facility] RBC Ql (U) 25-50 SEEN /hpf 0-5 [facility] Urine clarityOrdered By: Kimi Mendoza on 01-20-2023 Clarity (U) Cloudy Clear [facility] Urine color determinationOrd ered By: Joel Mendoza on 01-20-2023 Color (U) Yellow Yellow [facility] Urine glucose detectionOrder ed By: Joel Mendoza on 01-20-2023 Glucose Ql (U) Normal mg/dl Normal [facility] Urine leukocyte esterase det ection by dipstickOrdered By: Joel Mendoza on 01-20-2023 Leukocyte esterase Test strip Ql (U) 500 /ul Negative [facility] Urine pHOrdered By: Joel lamar on 01-20-2023 pH (U) 5.0 [pH] 5.0 - 8.0 [facility] Urine sediment bacteria coun t by microscopy (number/high power field)Ordered By: Joel Mendoza on 01-20-2023 Bacteria LM.HPF (Urine sed) [#/Area] 0 /[HPF] None Seen [facility] Urine sediment yeast count b y microscopy (number/high powered field)Ordered By: Joel Mendoza on 01-20-2023 Yeast LM.HPF (Urine sed) [#/Area] RARE /hpf None Seen [facility] Urine specific gravity measu rementOrdered By: Joel Mendoza on 01-20-2023 Specific gravity (U) [Rel density] 1.020 1.002-1.030 [facility] Urobilinogen Auto test strip Ql (U)Ordered By: Joel Mendoza on 01-20-2023 Urobilinogen Ql (U) 4 mg/dl [facility] Absolute lymphocyte countOrd ered By: Dr. Hill on 01-07-2023 Lymphocytes Auto (Unsp spec) [#/Vol] 2.80 10*3/uL 0.83-4.51 [facility] Basophil percentageOrdered B y: Dr. Hill on 01-07-2023 Basophil percentage 10-25 SEEN /hpf 0-5 [facility] Basophils/100 WBC (Bld) 0.9 % 0-1 [facility] Chloride [Moles/Vol] 95 mmol/L 98-107 [facility] Eosinophils/100 WBC (Bld) 1.8 % 0-5 [facility] Glucose [Mass/Vol] 413 mg/dL 74-106 [facility] Comment on above: Glucose result great er than or equal to 200 mg/dLsuggests DIABETES MELLITUS per A.D.A. criteria. Neutrophils (Bld) [#/Vol] 5.5 10*3/uL 2.0-7.7 [facility] Neutrophils/100 WBC (Bld) 60.2 % 47-70 [facility] Potassium [Moles/Vol] 4.4 mmol/L 3.5-5.1 [facility] Sodium [Moles/Vol] 130 mmol/L 136-145 [facility] WBC (Bld) [#/Vol] 9.0 10*3/uL 4.4-11.0 [facility] Bilirubin Test strip Ql (U)O rdered By: Dr. Hill on 01-07-2023 Bilirubin Ql (U) Negative Negative [facility] Blood erythrocytes count (nu mber/volume)Ordered By: Dr. Hill on 01-07-2023 RBC (Bld) [#/Vol] 5.46 10*6/uL 4.2-5.4 [facility] Blood hemoglobin measurement (mass/volume)Ordered By: Dr. Hill on 01-07-2023 Hemoglobin (Bld) [Mass/Vol] 14.1 g/dL 12.0-15.0 [facility] Blood lymphocytes/100 leukoc ytesOrdered By: Dr. Hill on 01-07-2023 Lymphocytes/100 WBC (Bld) 31.0 % 19-41 [facility] Blood monocytes/100 leukocyt esOrdered By: Dr. Hill on 01-07-2023 Monocytes/100 WBC (Bld) 4.8 % 0-10 [facility] Blood platelet mean volumeOr dered By: Dr. Hill on 01-07-2023 Platelet mean volume (Bld) [Entitic vol] 9.9 fL 6.2-12.0 [facility] Determination of erythrocyte mean corpuscular volume (MCV)Ordered By: Dr. Hill on 01-07-2023 MCV (RBC) [Entitic vol] 81.7 fL 81-99 [facility] Glucose Glucometer (BldC) [M ass/Vol]Ordered By: Dr. Hill on 01-07-2023 Glucose [Mass/Vol] 372 mg/dL 74-106 [facility] Comment on above: MANAGEMENT OF PATIEN T CARE PER NURSING PROTOCOL HCO3 (BldA) [Moles/Vol]Order ed By: Dr. Hill on 01-07-2023 HCO3 (Bld) [Moles/Vol] 32 mmol/L 22- [facility] Hematocrit Auto (Bld) [Volum e fraction]Ordered By: Dr. Hill on 01-07-2023 Hematocrit (Bld) [Volume fraction] 44.6 % 37-47 [facility] Ketones Test strip Ql (U)Ord ered By: Dr. Hill on 01-07-2023 Ketones Ql (U) Negative Negative [facility] - Chemistry and C hemistry - challengeOrdered By: Dr. Hill on 01-07-2023 CO2 [Moles/Vol] 34 mmol/L 23-33 [facility] CO2 [Moles/Vol] 30.0 mmol/L 21.0-32.0 [facility] Urea nitrogen/Creatinine [Mass ratio] 13.3 mg/mg 10-20 [facility] - Hematology and Cell countsOrdered By: Dr. Hill on 01-07-2023 Erythrocyte distribution width (RBC) [Entitic vol] 43.7 fL 35.1-43.9 [facility] Erythrocyte distribution width (RBC) [Ratio] 14.9 % 11.6-14.6 [facility] Immature granulocytes/100 WBC (Bld) 1.300 % 0.0-0.9 [facility] Comment on above: IG% - Immature Granu locytes (promyelocytes, myelocytes and metamyelocytes) > 1% indicates that a LEFT SHIFT is Present. MCH (RBC) [Entitic mass] 25.8 pg 27.0-32.0 [facility] Nucleated RBC/100 WBC (Bld) [Ratio] 0 % 0-5 [facility] MCHC Auto (RBC) [Mass/Vol]Or dered By: Dr. Hill on 01-07-2023 MCHC (RBC) [Mass/Vol] 31.6 g/dL 32-36 [facility] Mucus LM Ql (Urine sed)Order ed By: Dr. Hill on 01-07-2023 Mucus Ql (Urine sed) 0 SEEN /hpf [facility] Nitrite Test strip Ql (U)Ord ered By: Dr. Hill on 01-07-2023 Nitrite Ql (U) Negative Negative [facility] No Panel InformationOrdered By: Dr. Hill on 01-07-2023 Bed Mix Venous Bld PCO2 at Pat Temp 56.7 mmHg 41-51 [facility] Blood Gas Specimen Type SATHYA [facility] Venous Blood Base Excess 7 mmol/L -1.0-3.5 [facility] Estimated Creatinine Clearance Calc 48.37 ml/min [facility] Estimated GFR (MDRD) Amer 76 mL/min >60 [facility] Comment on above: GFR Calc Estimated GFR (MDRD) Non-Af Amer 63 mL/min >60 [facility] Comment on above: Non- GFR Calc PO2 venousOrdered By: Dr. Kumar hood on 01-07-2023 Oxygen (BldV) [Partial pressure] 37 mm[Hg] 25-40 [facility] Platelets bldOrdered By: Dr. Hill on 01-07-2023 Platelets (Bld) [#/Vol] 235 10*3/uL 150-450 [facility] Protein Test strip Ql (U)Ord ered By: Dr. Hill on 01-07-2023 Protein Ql (U) 15 mg/dl Negative [facility] Serum or plasma acetone janie urement (mass/volume)Ordered By: Dr. Hill on 01-07-2023 Acetone [Mass/Vol] Negative NEG [facility] Serum or plasma calcium janie urement (mass/volume)Ordered By: Dr. Hill on 01-07-2023 Calcium [Mass/Vol] 9.6 mg/dL 8.5-10.1 [facility] Serum or plasma creatinine m easurement (mass/volume)Ordered By: Dr. Hill on 01-07-2023 Creatinine [Mass/Vol] 0.98 mg/dL 0.55-1.02 [facility] Comment on above: The validity of the calculated GFR & GFRAA in patients over 70 years has not been determined. Clinical correlation is essential. Serum or plasma urea nitroge n measurement (mass/volume)Ordered By: Dr. Hill on 01-07-2023 Urea nitrogen [Mass/Vol] 13 mg/dL 7-18 [facility] Squamous epithelial cells de tection in urine sediment by light microscopyOrdered By: Dr. Hill on 01-07-2023 Epithelial cells.squamous LM Ql (Urine sed) 0-5 SEEN /hpf 5-10 [facility] Thin prep Papanicolaou smear with manual screeningOrdered By: Dr. Hill on 01-07-2023 Thin prep Papanicolaou smear with manual screening 5 5-15 [facility] Urine blood detectionOrdered By: Dr. Hill on 01-07-2023 RBC Ql (U) 50 /ul Negative [facility] RBC Ql (U) 0-5 SEEN /hpf 0-5 [facility] Urine clarityOrdered By: Dr. Hill on 01-07-2023 Clarity (U) Sl. Cloudy Clear [facility] Urine color determinationOrd ered By: Dr. Hill on 01-07-2023 Color (U) Yellow Yellow [facility] Urine glucose detectionOrder ed By: Dr. Hill on 01-07-2023 Glucose Ql (U) 1000 mg/dl Normal [facility] Urine leukocyte esterase det ection by dipstickOrdered By: Dr. Hill on 01-07-2023 Leukocyte esterase Test strip Ql (U) 25 /ul Negative [facility] Urine pHOrdered By: Dr. Danny fall on 01-07-2023 pH (U) 7.0 [pH] 5.0 - 8.0 [facility] Urine sediment bacteria coun t by microscopy (number/high power field)Ordered By: Dr. Hill on 01-07-2023 Bacteria LM.HPF (Urine sed) [#/Area] 0 /[HPF] None Seen [facility] Urine specific gravity measu rementOrdered By: Dr. Hill on 01-07-2023 Specific gravity (U) [Rel density] 1.010 1.002-1.030 [facility] Urobilinogen Auto test strip Ql (U)Ordered By: Dr. Hill on 01-07-2023 Urobilinogen Ql (U) Normal mg/dl Normal [facility] Vital signsOrdered By: Dr. Tosha florez on 01-07-2023 Oxygen saturation in Blood 66 % 50-70 [facility] pH measurementOrdered By: Dr Catie Hill on 01-07-2023 pH (Unsp spec) 7.36 [pH] 7.32-7.42 [facility] Absolute lymphocyte countOrd ered By: Dr. Hernandez on 10-25-2022 Lymphocytes Auto (Unsp spec) [#/Vol] 2.24 10*3/uL 0.83-4.51 [facility] Basophil percentageOrdered B y: Dr. Hernandez on 10-25-2022 Basophils/100 WBC (Bld) 0.7 % 0-1 [facility] Chloride [Moles/Vol] 98 mmol/L 98-107 [facility] Eosinophils/100 WBC (Bld) 2.1 % 0-5 [facility] Glucose [Mass/Vol] 366 mg/dL 74-106 [facility] Comment on above: Glucose result great er than or equal to 200 mg/dLsuggests DIABETES MELLITUS per A.D.A. criteria. Neutrophils (Bld) [#/Vol] 4.4 10*3/uL 2.0-7.7 [facility] Neutrophils/100 WBC (Bld) 60.3 % 47-70 [facility] Potassium [Moles/Vol] 4.2 mmol/L 3.5-5.1 [facility] Sodium [Moles/Vol] 132 mmol/L 136-145 [facility] WBC (Bld) [#/Vol] 7.3 10*3/uL 4.4-11.0 [facility] Blood erythrocytes count (nu mber/volume)Ordered By: Dr. Hernandez on 10-25-2022 RBC (Bld) [#/Vol] 4.69 10*6/uL 4.2-5.4 [facility] Blood hemoglobin measurement (mass/volume)Ordered By: Dr. Hernandez on 10-25-2022 Hemoglobin (Bld) [Mass/Vol] 12.1 g/dL 12.0-15.0 [facility] Blood lymphocytes/100 leukoc ytesOrdered By: Dr. Hernandez on 10-25-2022 Lymphocytes/100 WBC (Bld) 30.7 % 19-41 [facility] Blood monocytes/100 leukocyt esOrdered By: Dr. Hernandez on 10-25-2022 Monocytes/100 WBC (Bld) 5.2 % 0-10 [facility] Blood platelet mean volumeOr dered By: Dr. Hernandez on 10-25-2022 Platelet mean volume (Bld) [Entitic vol] 9.8 fL 6.2-12.0 [facility] Determination of erythrocyte mean corpuscular volume (MCV)Ordered By: Dr. Hernandez on 10-25-2022 MCV (RBC) [Entitic vol] 80.8 fL 81-99 [facility] Hematocrit Auto (Bld) [Volum e fraction]Ordered By: Dr. Hernandez on 10-25-2022 Hematocrit (Bld) [Volume fraction] 37.9 % 37-47 [facility] - Chemistry and C hemistry - challengeOrdered By: Dr. Hernandez on 10-25-2022 CO2 [Moles/Vol] 30.0 mmol/L 21.0-32.0 [facility] Free T4 [Mass/Vol] 1.22 ng/dL 0.76-1.46 [facility] Natriuretic peptide B (Bld) [Mass/Vol] 10.6 pg/mL 0-100 [facility] Urea nitrogen/Creatinine [Mass ratio] 22.8 mg/mg 10-20 [facility] - Hematology and Cell countsOrdered By: Dr. Hernandez on 10-25-2022 Erythrocyte distribution width (RBC) [Entitic vol] 45.1 fL 35.1-43.9 [facility] Erythrocyte distribution width (RBC) [Ratio] 15.5 % 11.6-14.6 [facility] Immature granulocytes/100 WBC (Bld) 1.000 % 0.0-0.9 [facility] Comment on above: IG% - Immature Granu locytes (promyelocytes, myelocytes and metamyelocytes) > 1% indicates that a LEFT SHIFT is Present. MCH (RBC) [Entitic mass] 25.8 pg 27.0-32.0 [facility] Nucleated RBC/100 WBC (Bld) [Ratio] 0 % 0-5 [facility] MCHC Auto (RBC) [Mass/Vol]Or dered By: Dr. Hernandez on 10-25-2022 MCHC (RBC) [Mass/Vol] 31.9 g/dL 32-36 [facility] No Panel InformationOrdered By: Dr. Hernandez on 10-25-2022 Estimated Creatinine Clearance Calc 57.10 ml/min [facility] Estimated GFR (MDRD) Amer 91 mL/min >60 [facility] Comment on above: GFR Calc Estimated GFR (MDRD) Non-Af Amer 75 mL/min >60 [facility] Comment on above: Non- GFR Calc Free Triiodothyronine (T3) pg/dL 2.7 pg/mL 2.18-3.98 [facility] Thyroid Stimulating Hormone (TSH) 0.34 uIU/mL 0.358-3.74 [facility] Troponin I High Sensitivity 37 pg/mL 3.0-54.0 [facility] Comment on above: Please Note: New Nuvia t Units and Gender Specific Reference Ranges. For more information see Policy Stat Procedure [place] High Sensitivity Troponin (TNIH) and attachments. Platelets bldOrdered By: Dr. Hernandez on 10-25-2022 Platelets (Bld) [#/Vol] 207 10*3/uL 150-450 [facility] Serum or plasma calcium janie urement (mass/volume)Ordered By: Dr. Hernandez on 10-25-2022 Calcium [Mass/Vol] 9.2 mg/dL 8.5-10.1 [facility] Serum or plasma creatinine m easurement (mass/volume)Ordered By: Dr. Hernandez on 10-25-2022 Creatinine [Mass/Vol] 0.84 mg/dL 0.55-1.02 [facility] Comment on above: The validity of the calculated GFR & GFRAA in patients over 70 years has not been determined. Clinical correlation is essential. Serum or plasma urea nitroge n measurement (mass/volume)Ordered By: Dr. Hernandez on 10-25-2022 Urea nitrogen [Mass/Vol] 19 mg/dL 7-18 [facility] Thin prep Papanicolaou smear with manual screeningOrdered By: Dr. Hernandez on 10-25-2022 Thin prep Papanicolaou smear with manual screening 4 5-15 [facility] Culture, urineOrdered By: Dr Catie Rivera on 10-12-2022 Bacteria identified Cx Nom (U) Presumptive E. coli [facility] Basophil percentageOrdered B y: Dr. Rivera on 10-10-2022 Basophil percentage >100 SEEN /hpf 0-5 [facility] Comment on above: Microscopic field is filled. Other elements may be obscured. Bilirubin Test strip Ql (U)O rdered By: Dr. Rivera on 10-10-2022 Bilirubin Ql (U) Negative Negative [facility] Culture, urineOrdered By: Jeffery Rivera on 10-10-2022 Bacteria identified Cx Nom (U) Presumptive E. coli [facility] Ketones Test strip Ql (U)Ord ered By: Dr. Rivera on 10-10-2022 Ketones Ql (U) Negative Negative [facility] Mucus LM Ql (Urine sed)Order ed By: Dr. Rivera on 10-10-2022 Mucus Ql (Urine sed) 0 SEEN /hpf [facility] Nitrite Test strip Ql (U)Ord ered By: Dr. Rivera on 10-10-2022 Nitrite Ql (U) Positive Negative [facility] Protein Test strip Ql (U)Ord ered By: Dr. Rivera on 10-10-2022 Protein Ql (U) 100 mg/dl Negative [facility] Squamous epithelial cells de tection in urine sediment by light microscopyOrdered By: Dr. Rivera on 10-10-2022 Epithelial cells.squamous LM Ql (Urine sed) 0 SEEN /hpf 5-10 [facility] Urine blood detectionOrdered By: Dr. Rivera on 10-10-2022 RBC Ql (U) 150 /ul Negative [facility] RBC Ql (U) 25-50 SEEN /hpf 0-5 [facility] Urine clarityOrdered By: Dr. Rivera on 10-10-2022 Clarity (U) Turbid Clear [facility] Urine color determinationOrd ered By: Dr. Rivera on 10-10-2022 Color (U) Yellow Yellow [facility] Urine glucose detectionOrder ed By: Dr. Rivera on 10-10-2022 Glucose Ql (U) Normal mg/dl Normal [facility] Urine leukocyte esterase det ection by dipstickOrdered By: Dr. Rivera on 10-10-2022 Leukocyte esterase Test strip Ql (U) 500 /ul Negative [facility] Urine pHOrdered By: Dr. Joaquin lozada on 10-10-2022 pH (U) 6.5 [pH] 5.0 - 8.0 [facility] Urine sediment bacteria coun t by microscopy (number/high power field)Ordered By: Dr. Rivera on 10-10-2022 Bacteria LM.HPF (Urine sed) [#/Area] 4 /[HPF] None Seen [facility] Urine specific gravity measu rementOrdered By: Dr. Rivera on 10-10-2022 Specific gravity (U) [Rel density] 1.015 1.002-1.030 [facility] Urobilinogen Auto test strip Ql (U)Ordered By: Dr. Rivera on 10-10-2022 Urobilinogen Ql (U) Normal mg/dl Normal [facility] STREP A MOLECULAR (POC)on Procedural Control Valid [facility] Strep A (POCT) Negative Negative [facility] Absolute lymphocyte countOrd ered By: Dr. Hernandez on 09-21-2022 Lymphocytes Auto (Unsp spec) [#/Vol] 2.57 10*3/uL 0.83-4.51 [facility] Basophil percentageOrdered B y: Dr. Hernandez on 09-21-2022 Basophil percentage 25-50 SEEN /hpf 0-5 [facility] Basophils/100 WBC (Bld) 0.6 % 0-1 [facility] Chloride [Moles/Vol] 101 mmol/L 98-107 [facility] Eosinophils/100 WBC (Bld) 2.7 % 0-5 [facility] Glucose [Mass/Vol] 245 mg/dL 74-106 [facility] Comment on above: Glucose result great er than or equal to 200 mg/dLsuggests DIABETES MELLITUS per A.D.A. criteria. Neutrophils (Bld) [#/Vol] 4.7 10*3/uL 2.0-7.7 [facility] Neutrophils/100 WBC (Bld) 58.1 % 47-70 [facility] Potassium [Moles/Vol] 4.0 mmol/L 3.5-5.1 [facility] Sodium [Moles/Vol] 138 mmol/L 136-145 [facility] WBC (Bld) [#/Vol] 8.1 10*3/uL 4.4-11.0 [facility] Bilirubin Test strip Ql (U)O rdered By: Dr. Hernandez on 09-21-2022 Bilirubin Ql (U) Negative Negative [facility] Blood erythrocytes count (nu mber/volume)Ordered By: Dr. Hernandez on 09-21-2022 RBC (Bld) [#/Vol] 4.40 10*6/uL 4.2-5.4 [facility] Blood hemoglobin measurement (mass/volume)Ordered By: Dr. Hernandez on 09-21-2022 Hemoglobin (Bld) [Mass/Vol] 10.8 g/dL 12.0-15.0 [facility] Blood lymphocytes/100 leukoc ytesOrdered By: Dr. Hernandez on 09-21-2022 Lymphocytes/100 WBC (Bld) 31.8 % 19-41 [facility] Blood monocytes/100 leukocyt esOrdered By: Dr. Hernandez on 09-21-2022 Monocytes/100 WBC (Bld) 5.2 % 0-10 [facility] Blood platelet mean volumeOr dered By: Dr. Hernandez on 09-21-2022 Platelet mean volume (Bld) [Entitic vol] 9.8 fL 6.2-12.0 [facility] Determination of erythrocyte mean corpuscular volume (MCV)Ordered By: Dr. Hernandez on 09-21-2022 MCV (RBC) [Entitic vol] 80.9 fL 81-99 [facility] Glucose Glucometer (BldC) [M ass/Vol]Ordered By: ED PROVIDER on 09-21-2022 Glucose [Mass/Vol] 235 mg/dL 74-106 [facility] Comment on above: MANAGEMENT OF PATIEN T CARE PER NURSING PROTOCOL Hematocrit Auto (Bld) [Volum e fraction]Ordered By: Dr. Hernandez on 09-21-2022 Hematocrit (Bld) [Volume fraction] 35.6 % 37-47 [facility] Ketones Test strip Ql (U)Ord ered By: Dr. Hernandez on 09-21-2022 Ketones Ql (U) Negative Negative [facility] - Chemistry and C hemistry - challengeOrdered By: Dr. Hernandez on 09-21-2022 CO2 [Moles/Vol] 32.0 mmol/L 21.0-32.0 [facility] Natriuretic peptide B (Bld) [Mass/Vol] 41.3 pg/mL 0-100 [facility] Urea nitrogen/Creatinine [Mass ratio] 21.0 mg/mg 10-20 [facility] - Hematology and Cell countsOrdered By: Dr. Hernandez on 09-21-2022 Erythrocyte distribution width (RBC) [Entitic vol] 42.4 fL 35.1-43.9 [facility] Erythrocyte distribution width (RBC) [Ratio] 14.6 % 11.6-14.6 [facility] Immature granulocytes/100 WBC (Bld) 1.600 % 0.0-0.9 [facility] Comment on above: IG% - Immature Granu locytes (promyelocytes, myelocytes and metamyelocytes) > 1% indicates that a LEFT SHIFT is Present. MCH (RBC) [Entitic mass] 24.5 pg 27.0-32.0 [facility] Nucleated RBC/100 WBC (Bld) [Ratio] 0 % 0-5 [facility] MCHC Auto (RBC) [Mass/Vol]Or dered By: Dr. Hernandez on 09-21-2022 MCHC (RBC) [Mass/Vol] 30.3 g/dL 32-36 [facility] Mucus LM Ql (Urine sed)Order ed By: Dr. Hernandez on 09-21-2022 Mucus Ql (Urine sed) 1+ /hpf [facility] Nitrite Test strip Ql (U)Ord ered By: Dr. Hernandez on 09-21-2022 Nitrite Ql (U) Negative Negative [facility] No Panel InformationOrdered By: Dr. Hernandez on 09-21-2022 Estimated Creatinine Clearance Calc 71.59 ml/min [facility] Estimated GFR (MDRD) Amer 118 mL/min >60 [facility] Comment on above: GFR Calc Estimated GFR (MDRD) Non-Af Amer 97 mL/min >60 [facility] Comment on above: Non- GFR Calc Troponin I High Sensitivity 52 pg/mL 3.0-54.0 [facility] Comment on above: Please Note: New Nuvia t Units and Gender Specific Reference Ranges. For more information see Policy Stat Procedure [place] High Sensitivity Troponin (TNIH) and attachments. Platelets bldOrdered By: Dr. Hernandez on 09-21-2022 Platelets (Bld) [#/Vol] 235 10*3/uL 150-450 [facility] Protein Test strip Ql (U)Ord ered By: Dr. Hernandez on 09-21-2022 Protein Ql (U) 30 mg/dl Negative [facility] Serum or plasma calcium janie urement (mass/volume)Ordered By: Dr. Hernandez on 09-21-2022 Calcium [Mass/Vol] 8.8 mg/dL 8.5-10.1 [facility] Serum or plasma creatinine m easurement (mass/volume)Ordered By: Dr. Hernandez on 09-21-2022 Creatinine [Mass/Vol] 0.67 mg/dL 0.55-1.02 [facility] Comment on above: The validity of the calculated GFR & GFRAA in patients over 70 years has not been determined. Clinical correlation is essential. Serum or plasma urea nitroge n measurement (mass/volume)Ordered By: Dr. Hernandez on 09-21-2022 Urea nitrogen [Mass/Vol] 14 mg/dL 7-18 [facility] Squamous epithelial cells de tection in urine sediment by light microscopyOrdered By: Dr. Hernandez on 09-21-2022 Epithelial cells.squamous LM Ql (Urine sed) 10-25 SEEN /hpf 5-10 [facility] Thin prep Papanicolaou smear with manual screeningOrdered By: Dr. Hernandez on 09-21-2022 Thin prep Papanicolaou smear with manual screening 5 5-15 [facility] Urine blood detectionOrdered By: Dr. Hernandez on 09-21-2022 RBC Ql (U) 250 /ul Negative [facility] RBC Ql (U) 5-10 SEEN /hpf 0-5 [facility] Urine clarityOrdered By: Dr. Hernandez on 09-21-2022 Clarity (U) Cloudy Clear [facility] Urine color determinationOrd ered By: Dr. Hernandez on 09-21-2022 Color (U) Yellow Yellow [facility] Urine glucose detectionOrder ed By: Dr. Hernandez on 09-21-2022 Glucose Ql (U) Normal mg/dl Normal [facility] Urine leukocyte esterase det ection by dipstickOrdered By: Dr. Hernandez on 09-21-2022 Leukocyte esterase Test strip Ql (U) 500 /ul Negative [facility] Urine pHOrdered By: Dr. Navin monte on 09-21-2022 pH (U) 5.0 [pH] 5.0 - 8.0 [facility] Urine sediment bacteria coun t by microscopy (number/high power field)Ordered By: Dr. Hernandez on 09-21-2022 Bacteria LM.HPF (Urine sed) [#/Area] 0 /[HPF] None Seen [facility] Urine specific gravity measu rementOrdered By: Dr. Hernandez on 09-21-2022 Specific gravity (U) [Rel density] 1.020 1.002-1.030 [facility] Urobilinogen Auto test strip Ql (U)Ordered By: Dr. Hernandez on 09-21-2022 Urobilinogen Ql (U) Normal mg/dl Normal [facility] UA DIP, URINE (POC)on 2022 BILIRUBIN UA (POCT) Negative Negative [facility] CLARITY UA (POCT) Slightly Cloudy Cl [facility] COLOR UA (POCT) Light yellow [facility] GLUCOSE UA (POCT) Negative Negative mg/dL [facility] HEMOGLOBIN/BLOOD UA (POCT) Large Abnormal Negative [facility] KETONE UA (POCT) Negative Negative mg/dL [facility] LEUKOCYTES UA (POCT) Small Abnormal Negative [facility] NITRITE UA (POCT) Positive Abnormal Negative [facility] PH UA (POCT) 6.0 4.5 - 8.0 [facility] Protein Ql (U) 100 mg/dL Abnormal Negative mg/dL [facility] SPECIFIC GRAVITY UA (POCT) >=1.030 1.005 - 1.030 [facility] UROBILINOGEN UA (POCT) 1.0 E.U./dL Normal E.U./dL [facility] XR Hand - right PA and Later al and Obliqueon 06-15-2022 IMPRESSION: Mild degenerative changes in the right hand as described above. No acute fracture seen. 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 CLINICAL INDICATION/HISTORY: Hand pain after injury. TECHNIQUE: PA, lateral and oblique views of the right hand are presented. FINDINGS: No acute fractures or subluxations are noted. Mild degenerative changes involving multiple DIP joints. Foci of calcifications or radiopaque opacities along the distal right ulna. The mineralization of the bones is normal. There is no significant soft tissue swelling. DIVISION OF RADIOLOGY Provider, [facility] - 06/15/2022 * * *Final Report* * * DATE OF EXAM: Jun 15 2022 3:44PM WOX [id number] - XR HAND 3V PA/LAT/OBL RT / PROCEDURE REASON: Hand injuries, right, initial encounter * * * * Physician Interpretation * * * * EXAM TITLE: XR HAND 3V PA/LAT/OBL RT EXAM DATE/TIME: 06/15/2022 3:44 PM COMPARISON: None. CLINICAL INDICATION/HISTORY: Hand pain after injury. TECHNIQUE: PA, lateral and oblique views of the right hand are presented. FINDINGS: No acute fractures or subluxations are noted. Mild degenerative changes involving multiple DIP joints. Foci of calcifications or radiopaque opacities along the distal right ulna. The mineralization of the bones is normal. There is no significant soft tissue swelling. IMPRESSION IMPRESSION: Mild degenerative changes in the right hand as described above. No acute fracture seen. Supplier Quality Engineering Manager: KARIN Transcribe Date/Time: Jun 15 2022 3:49P Dictated by : LINN DARDEN MD This examination was interpreted and the report reviewed and electronically signed by: LINN DARDEN MD on Jun 15 2022 4:00PM EST [facility] Radiology Study observation (narrative) [facility] XR Hand - right PA and Later al and ObliqueOrdered By: Ccf Provider on 06-15-2022 [facility] GLUCOSE, BLOOD (POC)on 02-16 Glucose [Mass/Vol] 240 mg/dL Abnormal 74 - 99 mg/dL [facility] Absolute lymphocyte counton 02-11-2022 Lymphocytes Auto (Unsp spec) [#/Vol] 3.04 10*3/uL 0.83-4.51 [facility] Work Phone: Basophil percentageon 2021 Basophils/100 WBC (Bld) 0.8 % 0-1 [facility] Work Phone: Chloride [Moles/Vol] 103 mmol/L 98-107 [facility] Work Phone: Eosinophils/100 WBC (Bld) 2.4 % 0-5 [facility] Work Phone: Glucose [Mass/Vol] 261 mg/dL 74-106 [facility] Work Phone: Comment on above: Glucose result great er than or equal to 200 mg/dLsuggests DIABETES MELLITUS per A.D.A. criteria. Neutrophils (Bld) [#/Vol] 3.9 10*3/uL 2.0-7.7 [facility] Work Phone: Neutrophils/100 WBC (Bld) 49.5 % 47-70 [facility] Work Phone: Potassium [Moles/Vol] 4.0 mmol/L 3.5-5.1 [facility] Work Phone: Sodium [Moles/Vol] 135 mmol/L 136-145 [facility] Work Phone: WBC (Bld) [#/Vol] 7.8 10*3/uL 4.4-11.0 [facility] Work Phone: Blood erythrocytes count (nu mber/volume)on 02-11-2022 RBC (Bld) [#/Vol] 4.70 10*6/uL 4.2-5.4 [facility] Work Phone: Blood hemoglobin measurement (mass/volume)on 02-11-2022 Hemoglobin (Bld) [Mass/Vol] 11.3 g/dL 12.0-15.0 [facility] Work Phone: Blood lymphocytes/100 leukoc yteson 02-11-2022 Lymphocytes/100 WBC (Bld) 39.1 % 19-41 [facility] Work Phone: Blood monocytes/100 leukocyt eson 02-11-2022 Monocytes/100 WBC (Bld) 6.0 % 0-10 [facility] Work Phone: Blood platelet mean volumeon 02-11-2022 Platelet mean volume (Bld) [Entitic vol] 10.1 fL 6.2-12.0 [facility] Work Phone: Determination of erythrocyte mean corpuscular volume (MCV)on 02-11-2022 MCV (RBC) [Entitic vol] 80.0 fL 81-99 [facility] Work Phone: Glucose Glucometer (BldC) [M ass/Vol]on 02-11-2022 Glucose [Mass/Vol] 350 mg/dL 74-106 [facility] Work Phone: Comment on above: MANAGEMENT OF PATIEN T CARE PER NURSING PROTOCOL Hematocrit Auto (Bld) [Volum e fraction]on 02-11-2022 Hematocrit (Bld) [Volume fraction] 37.6 % 37-47 [facility] Work Phone: Laboratory - Chemistry and C hemistry - challengeon 02-11-2022 CO2 [Moles/Vol] 27.0 mmol/L 21.0-32.0 [facility] Work Phone: Urea nitrogen/Creatinine [Mass ratio] 20.3 mg/mg 10-20 [facility] Work Phone: Laboratory - Hematology and Cell countson 02-11-2022 Erythrocyte distribution width (RBC) [Entitic vol] 46.0 fL 35.1-43.9 [facility] Work Phone: Erythrocyte distribution width (RBC) [Ratio] 16.3 % 11.6-14.6 [facility] Work Phone: Immature granulocytes/100 WBC (Bld) 2.200 % 0.0-0.9 [facility] Work Phone: Comment on above: IG% - Immature Granu locytes (promyelocytes, myelocytes and metamyelocytes) > 1% indicates that a LEFT SHIFT is Present. MCH (RBC) [Entitic mass] 24.0 pg 27.0-32.0 [facility] Work Phone: Nucleated RBC/100 WBC (Bld) [Ratio] 0 % 0-5 [facility] Work Phone: MCHC Auto (RBC) [Mass/Vol]on 02-11-2022 MCHC (RBC) [Mass/Vol] 30.1 g/dL 32-36 [facility] Work Phone: No Panel Informationon 02-11 Estimated Creatinine Clearance Calc 88.83 ml/min [facility] Work Phone: Estimated GFR (MDRD) Amer 150 mL/min >60 [facility] Work Phone: Comment on above: GFR Calc Estimated GFR (MDRD) Non-Af Amer 124 mL/min >60 [facility] Work Phone: Comment on above: Non- GFR Calc Platelets bldon 02-11-2022 Platelets (Bld) [#/Vol] 227 10*3/uL 150-450 [facility] Work Phone: Serum or plasma calcium janie urement (mass/volume)on 02-11-2022 Calcium [Mass/Vol] 8.6 mg/dL 8.5-10.1 [facility] Work Phone: Serum or plasma creatinine m easurement (mass/volume)on 02-11-2022 Creatinine [Mass/Vol] 0.54 mg/dL 0.55-1.02 [facility] Work Phone: Comment on above: The validity of the calculated GFR & GFRAA in patients over 70 years has not been determined. Clinical correlation is essential. Serum or plasma urea nitroge n measurement (mass/volume)on 02-11-2022 Urea nitrogen [Mass/Vol] 11 mg/dL 7-18 [facility] Work Phone: Thin prep Papanicolaou smear with manual screeningon 02-11-2022 Thin prep Papanicolaou smear with manual screening 5 5-15 [facility] Work Phone: Basophil percentageon 2021 Bilirubin [Mass/Vol] 0.40 mg/dL 0.20-1.00 [facility] Work Phone: Comment on above: For patients on eltr ombopag therapy, use of Dimension [place] TBIL is not recommended. Protein [Mass/Vol] 7.8 g/dL 6.4-8.2 [facility] Work Phone: Laboratory - Chemistry and C hemistry - challengeon 02-10-2022 ALP [Catalytic activity/Vol] 164 U/L 45-117 [facility] Work Phone: ALT [Catalytic activity/Vol] 49 U/L 13-56 [facility] Work Phone: Globulin (S) [Mass/Vol] 5.2 g/dL 2.2-4.2 [facility] Work Phone: Serum or plasma albumin janie urement (mass/volume)on 02-10-2022 Albumin [Mass/Vol] 2.6 g/dL 3.2-5.0 [facility] Work Phone: Serum or plasma albumin/glob ulin mass ratioon 02-10-2022 Albumin/Globulin [Mass ratio] 0.5 {ratio} 0.9-2.4 [facility] Work Phone: Thin prep Papanicolaou smear with manual screeningon 02-10-2022 Thin prep Papanicolaou smear with manual screening 56 U/L 15-37 [facility] Work Phone: Absolute lymphocyte counton 02-09-2022 Lymphocytes Auto (Unsp spec) [#/Vol] 2.68 10*3/uL 0.83-4.51 [facility] Work Phone: Amorphous sediment detection in urine sediment by light microscopyon 02-09-2022 Amorphous sediment LM Ql (Urine sed) 1+ URATE [facility] Work Phone: Assessment of wrist artery p atency prior to arterial punctureon 02-09-2022 Arterial patency Wrist artery --pre arterial puncture Positive [facility] Work Phone: Base excesson 02-09-2022 Base excess Calc (BldV) [Moles/Vol] 2 mmol/L -2-2 [facility] Work Phone: Basophil percentageon 2021 Lactate [Moles/Vol] 1.0 mmol/L 0.4-2.0 [facility] Work Phone: Basophil percentage 26.6 mmol/L 22-26 [facility] Work Phone: Basophils/100 WBC (Bld) 96 % 95-99 [facility] Work Phone: Basophil percentage 50-100 SEEN /hpf 0-5 [facility] Work Phone: Basophils/100 WBC (Bld) 0.7 % 0-1 [facility] Work Phone: Bilirubin [Mass/Vol] 0.50 mg/dL 0.20-1.00 [facility] Work Phone: Comment on above: For patients on eltr ombopag therapy, use of [place] TBIL is not recommended. Chloride [Moles/Vol] 91 mmol/L 98-107 [facility] Work Phone: Eosinophils/100 WBC (Bld) 1.7 % 0-5 [facility] Work Phone: Glucose [Mass/Vol] 629 mg/dL 74-106 [facility] Work Phone: Comment on above: Glucose result great er than or equal to 200 mg/dLsuggests DIABETES MELLITUS per A.D.A. criteria. Lactate [Moles/Vol] 2.3 mmol/L 0.4-2.0 [facility] Work Phone: Comment on above: Critical Result(s) C alled at: 19:11:23 02/09/2022 by: JOSEF HERNANDEZ. TO AUNG BARAHONA MEDIA SERVICES DIRECTOR Results read back by same. Neutrophils (Bld) [#/Vol] 5.5 10*3/uL 2.0-7.7 [facility] Work Phone: Neutrophils/100 WBC (Bld) 61.2 % 47-70 [facility] Work Phone: Potassium [Moles/Vol] 5.0 mmol/L 3.5-5.1 [facility] Work Phone: Comment on above: Moderate Hemolysis, Result may be falsely increased. Protein [Mass/Vol] 8.8 g/dL 6.4-8.2 [facility] Work Phone: Sodium [Moles/Vol] 125 mmol/L 136-145 [facility] Work Phone: Comment on above: Critical Result(s) C alled at: 19:13:42 02/09/2022 by: JOSEF HERNANDEZ TO EDNA AVALOS MEDIA SERVICES DIRECTOR. Results read back by same. WBC (Bld) [#/Vol] 9.0 10*3/uL 4.4-11.0 [facility] Work Phone: Bilirubin Test strip Ql (U)o n 02-09-2022 Bilirubin Ql (U) Negative Negative [facility] Work Phone: Blood erythrocytes count (nu mber/volume)on 02-09-2022 RBC (Bld) [#/Vol] 4.94 10*6/uL 4.2-5.4 [facility] Work Phone: Blood hemoglobin measurement (mass/volume)on 02-09-2022 Hemoglobin (Bld) [Mass/Vol] 11.8 g/dL 12.0-15.0 [facility] Work Phone: Blood lymphocytes/100 leukoc yteson 02-09-2022 Lymphocytes/100 WBC (Bld) 29.7 % 19-41 [facility] Work Phone: Blood monocytes/100 leukocyt eson 02-09-2022 Monocytes/100 WBC (Bld) 4.9 % 0-10 [facility] Work Phone: Blood platelet mean volumeon 02-09-2022 Platelet mean volume (Bld) [Entitic vol] 10.3 fL 6.2-12.0 [facility] Work Phone: CO2 (BldA) [Partial pressure ]on 02-09-2022 CO2 (Bld) [Partial pressure] 45.2 mm[Hg] 35-45 [facility] Work Phone: Determination of erythrocyte mean corpuscular volume (MCV)on 02-09-2022 MCV (RBC) [Entitic vol] 76.9 fL 81-99 [facility] Work Phone: Glucose Glucometer (BldC) [M ass/Vol]on 02-09-2022 Glucose [Mass/Vol] mg/dL 74-106 [facility] Work Phone: Comment on above: Dr Winnie Sebastian NAGEMENT OF PATIENT CARE PER NURSING PROTOCOL Hematocrit Auto (Bld) [Volum e fraction]on 02-09-2022 Hematocrit (Bld) [Volume fraction] 38.0 % 37-47 [facility] Work Phone: Ketones Test strip Ql (U)on 02-09-2022 Ketones Ql (U) Negative Negative [facility] Work Phone: Laboratory - Chemistry and C hemistry - challengeon 02-09-2022 ALP [Catalytic activity/Vol] 210 U/L 45-117 [facility] Work Phone: ALT [Catalytic activity/Vol] 56 U/L 13-56 [facility] Work Phone: CO2 [Moles/Vol] 27.0 mmol/L 21.0-32.0 [facility] Work Phone: Free T4 [Mass/Vol] 0.50 ng/dL 0.76-1.46 [facility] Work Phone: Globulin (S) [Mass/Vol] 5.9 g/dL 2.2-4.2 [facility] Work Phone: HCG ( test) Ql (U) Negative [facility] Work Phone: Comment on above: Very dilute urine sp ecimens, as indicated by a low specificgravity, may not contain insurance account representative levels of hCG. If is still suspected, a first morning urinespecimen should be collected 48 hours later and tested. Lipase [Catalytic activity/Vol] 96 U/L 73-393 [facility] Work Phone: Urea nitrogen/Creatinine [Mass ratio] 13.3 mg/mg 10-20 [facility] Work Phone: Laboratory - Hematology and Cell countson 02-09-2022 Erythrocyte distribution width (RBC) [Entitic vol] 44.8 fL 35.1-43.9 [facility] Work Phone: Erythrocyte distribution width (RBC) [Ratio] 16.3 % 11.6-14.6 [facility] Work Phone: Immature granulocytes/100 WBC (Bld) 1.800 % 0.0-0.9 [facility] Work Phone: Comment on above: IG% - Immature Granu locytes (promyelocytes, myelocytes and metamyelocytes) > 1% indicates that a LEFT SHIFT is Present. MCH (RBC) [Entitic mass] 23.9 pg 27.0-32.0 [facility] Work Phone: Nucleated RBC/100 WBC (Bld) [Ratio] 0 % 0-5 [facility] Work Phone: MCHC Auto (RBC) [Mass/Vol]on 02-09-2022 MCHC (RBC) [Mass/Vol] 31.1 g/dL 32-36 [facility] Work Phone: Mucus LM Ql (Urine sed)on Mucus Ql (Urine sed) 0 SEEN /hpf [facility] Work Phone: Nitrite Test strip Ql (U)on 02-09-2022 Nitrite Ql (U) Positive Negative [facility] Work Phone: No Panel Informationon 02-09 Blood Gas Sample Site L Radial [facility] Work Phone: Blood Gas Specimen Type ART [facility] Work Phone: Blood Gas Total CO2 28 mmol/L [facility] Work Phone: Oxygen Delivery Device Room Air [facility] Work Phone: Estimated Creatinine Clearance Calc 45.68 ml/min [facility] Work Phone: Estimated GFR (MDRD) Amer 70 mL/min >60 [facility] Work Phone: Comment on above: GFR Calc Estimated GFR (MDRD) Non-Af Amer 58 mL/min >60 [facility] Work Phone: Comment on above: Non- GFR Calc Free Triiodothyronine (T3) pg/dL 1.7 pg/mL 2.18-3.98 [facility] Work Phone: Thyroid Stimulating Hormone (TSH) 53.20 uIU/mL 0.358-3.74 [facility] Work Phone: Oxygen (BldA) [Partial press ure]on 02-09-2022 Oxygen (Bld) [Partial pressure] 81 mmHG 75-100 [facility] Work Phone: Platelets bldon 02-09-2022 Platelets (Bld) [#/Vol] 271 10*3/uL 150-450 [facility] Work Phone: Protein Test strip Ql (U)on 02-09-2022 Protein Ql (U) 15 mg/dl Negative [facility] Work Phone: Serum or plasma acetone janie urement (mass/volume)on 02-09-2022 Acetone [Mass/Vol] Negative NEG [facility] Work Phone: Serum or plasma albumin janie urement (mass/volume)on 02-09-2022 Albumin [Mass/Vol] 2.9 g/dL 3.2-5.0 [facility] Work Phone: Serum or plasma albumin/glob ulin mass ratioon 02-09-2022 Albumin/Globulin [Mass ratio] 0.5 {ratio} 0.9-2.4 [facility] Work Phone: Serum or plasma calcium janie urement (mass/volume)on 02-09-2022 Calcium [Mass/Vol] 9.7 mg/dL 8.5-10.1 [facility] Work Phone: Serum or plasma creatinine m easurement (mass/volume)on 02-09-2022 Creatinine [Mass/Vol] 1.05 mg/dL 0.55-1.02 [facility] Work Phone: Comment on above: The validity of the calculated GFR & GFRAA in patients over 70 years has not been determined. Clinical correlation is essential. Serum or plasma urea nitroge n measurement (mass/volume)on 02-09-2022 Urea nitrogen [Mass/Vol] 14 mg/dL 7-18 [facility] Work Phone: Squamous epithelial cells de tection in urine sediment by light microscopyon 02-09-2022 Epithelial cells.squamous LM Ql (Urine sed) 0-5 SEEN /hpf 5-10 [facility] Work Phone: Thin prep Papanicolaou smear with manual screeningon 02-09-2022 Thin prep Papanicolaou smear with manual screening 70 U/L 15-37 [facility] Work Phone: Comment on above: Moderate Hemolysis, Result may be falsely increased. Thin prep Papanicolaou smear with manual screening 7 5-15 [facility] Work Phone: Thin prep Papanicolaou smear with manual screening 301 mOsm/KG 275-295 [facility] Work Phone: Urine blood detectionon 01-20 RBC Ql (U) 150 /ul Negative [facility] Work Phone: RBC Ql (U) 25-50 SEEN /hpf 0-5 [facility] Work Phone: Urine clarityon 02-09-2022 Clarity (U) Cloudy Clear [facility] Work Phone: Urine color determinationon 02-09-2022 Color (U) Yellow Yellow [facility] Work Phone: Urine glucose detectionon Glucose Ql (U) 1000 mg/dl Normal [facility] Work Phone: Urine leukocyte esterase det ection by dipstickon 02-09-2022 Leukocyte esterase Test strip Ql (U) 500 /ul Negative [facility] Work Phone: Urine pHon 02-09-2022 pH (U) 6.0 [pH] 5.0 - 8.0 [facility] Work Phone: Urine sediment bacteria coun t by microscopy (number/high power field)on 02-09-2022 Bacteria LM.HPF (Urine sed) [#/Area] 2 /[HPF] None Seen [facility] Work Phone: Urine specific gravity measu rementon 02-09-2022 Specific gravity (U) [Rel density] 1.010 1.002-1.030 [facility] Work Phone: Urobilinogen Auto test strip Ql (U)on 02-09-2022 Urobilinogen Ql (U) Normal mg/dl Normal [facility] Work Phone: pH measurementon 02-09-2022 pH (Unsp spec) 7.38 [pH] 7.35-7.45 [facility] Work Phone: HGB A1Con 11-10-2021 Average glucose Estimated from glycated hemoglobin (Bld) [Mass/Vol] 260 mg/dL [facility] HbA1c (Bld) [Mass fraction] 10.7 % High 4.3 - 5.6 % [facility] Basic metabolic 2000 panelon 11-09-2021 Anion gap [Moles/Vol] 9 mmol/L 9 - 18 mmol/L [facility] Calcium [Mass/Vol] 9.5 mg/dL 8.5 - 10. 2 mg/dL [facility] Chloride [Moles/Vol] 98 mmol/L 97 - 10 5 mmol/L [facility] CO2 [Moles/Vol] 27 mmol/L 22 - 30 mmol/L [facility] Creatinine [Mass/Vol] 0.49 mg/dL Low 0.58 - 0.96 mg/dL [facility] Estimated Glomerular Filtration Rate 112 mL/min/1.73m >=60 mL/min/1.73m [facility] Glucose [Mass/Vol] 244 mg/dL High 74 - 99 mg/dL [facility] Potassium [Moles/Vol] 4.6 mmol/L 3.7 - 5.1 mmol/L [facility] Sodium [Moles/Vol] 134 mmol/L Low 136 - 144 mmol/L [facility] Urea nitrogen [Mass/Vol] 14 mg/dL 7 - 21 mg/dL [facility] XR HAND GENERAL 3V PA/LAT/OB L [facility]on [facility] - left PA and Latera l and Obliqueon 10-16-2021 IMPRESSION: Findings as described above. Supplier Quality Engineering Manager: PSC[employer] Transcribe Date/Time: Oct 16 2021 11:48A Dictated by : LINN DARDEN MD This examination was interpreted and the report reviewed and electronically signed by: LINN DARDEN MD on Oct 16 2021 11:53AM [facility] DIVISION OF RADIOLOGY * * *Final Report* * * DATE OF EXAM: Oct 16 2021 11:33AM [id number] - XR HAND 3V PA/LAT/OBL LT / PROCEDURE REASON: Left hand pain * * * * Physician Interpretation * * * * EXAM TITLE: XR HAND 3V PA/LAT/OBL LT EXAM DATE/TIME: 10/16/2021 11:33 AM COMPARISON: None. CLINICAL INDICATION/HISTORY: Injury. TECHNIQUE: PA, lateral and oblique views of the left hand are presented. FINDINGS: No acute fractures or subluxations are noted. There are degenerative changes involving the DIP joints in the second and third digits. The joint spaces are otherwise preserved. Tiny accessory bones versus soft tissue calcifications along the PIP joints in the third and fifth digits. The mineralization of the bones is normal. There is no significant soft tissue swelling. DIVISION OF RADIOLOGY Provider, [facility] - 10/16/2021 * * *Final Report* * * DATE OF EXAM: Oct 16 2021 11:33AM [facility] [id number] - XR HAND 3V PA/LAT/OBL LT / PROCEDURE REASON: Left hand pain * * * * Physician Interpretation * * * * EXAM TITLE: XR HAND 3V PA/LAT/OBL LT EXAM DATE/TIME: 10/16/2021 11:33 AM COMPARISON: None. CLINICAL INDICATION/HISTORY: Injury. TECHNIQUE: PA, lateral and oblique views of the left hand are presented. FINDINGS: No acute fractures or subluxations are noted. There are degenerative changes involving the DIP joints in the second and third digits. The joint spaces are otherwise preserved. Tiny accessory bones versus soft tissue calcifications along the PIP joints in the third and fifth digits. The mineralization of the bones is normal. There is no significant soft tissue swelling. IMPRESSION IMPRESSION: Findings as described above. Supplier Quality Engineering Manager: [employer] Transcribe Date/Time: Oct 16 2021 11:48A Dictated by : LINN DARDEN MD This examination was interpreted and the report reviewed and electronically signed by: LINN DARDEN MD on Oct 16 2021 11:53AM EST [facility] Radiology Study observation (narrative) [facility] XR Hand - left PA and Latera l and ObliqueOrdered By: Ccf Provider on 10-16-2021 [facility] Culture, urine Bacteria identified Cx Nom (U) Escherichia coli [facility] Work Phone: Laboratory - Microbiology an d Antimicrobial susceptibility Bacteria identified Cx Nom (Bld) No growth in 5 days. [facility] Work Phone: No Panel Information [facility] Vital Signs Date Time Vital Sign Value Performing Clinician Facility 12-30-2024 10:43-0400 Body temperature 98.2 [degF] [facility] [employer] GEOSPATIAL SCIENTIST Work Phone: [facility] 12-30-2024 10:43-0400 Diastolic blood pressure 70 mm[Hg] [employer] Work Phone: [facility] 12-30-2024 10:43-0400 Heart rate 92 /min [employer] Work Phone: [facility] 12-30-2024 10:43-0400 Respiratory rate 16 /min [employer] SCI[employer] Work Phone: [facility] 12-30-2024 10:43-0400 SaO2% (BldA) [Mass fraction] 99 % [employer]OS[employer] SCIENT[employer] Work Phone: [facility] 12-30-2024 10:43-0400 Systolic blood pressure 128 mm[Hg] [employer] GEOSPATIAL SCIENTIST Work Phone: [facility] 11-03-2024 23:17-0400 Body temperature 97.3 [degF] [employer]OS[employer] SCIENT[employer] Work Phone: [facility] 11-03-2024 23:17-0400 Diastolic blood pressure 85 mm[Hg] [employer]OS[employer] SCIENT[employer] Work Phone: [facility] 11-03-2024 23:17-0400 Heart rate 98 /min [employer] SCI[employer] Work Phone: [facility] 11-03-2024 23:17-0400 Respiratory rate 18 /min [employer] Work Phone: [facility] 11-03-2024 23:17-0400 SaO2% (BldA) [Mass fraction] 97 % [employer] SCIENT[employer] Work Phone: [facility] 11-03-2024 23:17-0400 Systolic blood pressure 106 mm[Hg] [employer] GEOSPATIAL SCIENTIST Work Phone: [facility] 11-03-2024 21:01-0400 Body height 154.94 cm [employer]OS[employer] SCIENT[employer] Work Phone: [facility] 11-03-2024 21:01-0400 Body mass index (BMI) [Ratio] 46.3 kg/m2 [employer] SCI[employer] Work Phone: [facility] 11-03-2024 21:01-0400 Body weight 111.2 kg [employer]OS[employer] SCIENT[employer] Work Phone: [facility] 10-30-2024 09:22-0400 Body mass index (BMI) [Ratio] 44.6 kg/m2 [employer] Work Phone: [facility] 10-30-2024 09:22-0400 Body temperature 95.9 [degF] [employer] GEOS[employer] SCIENTIST Work Phone: [facility] 10-30-2024 09:22-0400 Body weight 107.04 kg [employer] GEOSPATIAL SCIENTIST Work Phone: [facility] 10-30-2024 09:22-0400 Diastolic blood pressure 81 mm[Hg] [employer] GEOSPATIAL SCIENTIST Work Phone: [facility] 10-30-2024 09:22-0400 Heart rate 89 /min [employer] GEOSPAT[employer] SCIENTIST Work Phone: [facility] 10-30-2024 09:22-0400 Inhaled oxygen flow rate 2 L/min [employer]OS[employer] SCIENTIST Work Phone: [facility] 10-30-2024 09:22-0400 Respiratory rate 20 /min [employer] GEOSPATIAL SCIENTIST Work Phone: [facility] 10-30-2024 09:22-0400 SaO2% (BldA) [Mass fraction] 99 % [employer] GEOSPATIAL SCIENTIST Work Phone: [facility] 10-30-2024 09:22-0400 Systolic blood pressure 147 mm[Hg] [employer] GEOSPATIAL SCIENTIST Work Phone: [facility] 10-06-2024 12:53-0400 Body height 154.94 cm [employer] GEOSPATIAL SCIENTIST Work Phone: [facility] 10-06-2024 12:53-0400 Body weight 108.86 kg [employer] GEOSPATIAL SCIENTIST Work Phone: [facility] 10-06-2024 12:53-0400 Heart rate 95 /min [employer] GEOSPATIAL SCIENTIST Work Phone: [facility] 10-06-2024 12:53-0400 SaO2% (BldA) [Mass fraction] 98 % [employer] GEOSPATIAL SCIENTIST Work Phone: [facility] 09-30-2024 02:03-0400 Body temperature 98 [degF] [employer] GEOSPATIAL SCIENTIST Work Phone: [facility] 09-30-2024 02:03-0400 Diastolic blood pressure 66 mm[Hg] [employer] GEOSPATIAL SCIENTIST Work Phone: [facility] 09-30-2024 02:03-0400 Heart rate 81 /min [employer] GEOSPATIAL SCIENTIST Work Phone: [facility] 09-30-2024 02:03-0400 Respiratory rate 18 /min [employer] GEOSPATIAL SCIENTIST Work Phone: [facility] 09-30-2024 02:03-0400 SaO2% (BldA) [Mass fraction] 97 % [employer] GEOSPATIAL SCIENTIST Work Phone: [facility] 09-30-2024 02:03-0400 Systolic blood pressure 121 mm[Hg] [employer] GEOSPATIAL SCIENTIST Work Phone: [facility] 09-30-2024 00:34-0400 Body height 154.94 cm [employer] GEOSPATIAL SCIENTIST Work Phone: [facility] 09-30-2024 00:34-0400 Body mass index (BMI) [Ratio] 43.2 kg/m2 [employer]OS[employer] SCIENTIST Work Phone: [facility] 09-30-2024 00:34-0400 Body weight 103.7 kg [employer] GEOSPAT[employer] SCIENTIST Work Phone: [facility] 09-24-2024 13:08-0500 Body mass index (BMI) [Ratio] 45.3 kg/m2 [employer]OS[employer] SCIENTIST Work Phone: [facility] 09-24-2024 13:08-0500 Body weight 108.86 kg [employer] GEOSPAT[employer] SCIENTIST Work Phone: [facility] 09-24-2024 13:08-0500 Diastolic blood pressure 84 mm[Hg] [employer] GEOSPAT[employer] SCIENTIST Work Phone: [facility] 09-24-2024 13:08-0500 Heart rate 88 /min [employer]OS[employer] SCIENTIST Work Phone: [facility] 09-24-2024 13:08-0500 Inhaled oxygen flow rate 2 L/min [employer] SCIENTIST Work Phone: [facility] 09-24-2024 13:08-0500 SaO2% (BldA) [Mass fraction] 95 % [employer] GEOSPAT[employer] SCIENTIST Work Phone: [facility] 09-24-2024 13:08-0500 Systolic blood pressure 135 mm[Hg] [employer] GEOSPATIAL SCIENTIST Work Phone: [facility] 09-04-2024 08:46-0500 Body mass index (BMI) [Ratio] 42.9 kg/m2 [employer] GEOS[employer] SCIENTIST Work Phone: [facility] 09-04-2024 08:46-0500 Body temperature 97.4 [degF] [employer] GEOSPATIAL SCIENTIST Work Phone: [facility] 09-04-2024 08:46-0500 Body weight 102.96 kg [facility] GEOSPATIAL SCIENTIST Work Phone: [facility] 09-04-2024 08:46-0500 Diastolic blood pressure 83 mm[Hg] VERO MAST GEOSPATIAL SCIENTIST Work Phone: [facility] 09-04-2024 08:46-0500 Heart rate 102 /min VERO MAST GEOSPATIAL SCIENTIST Work Phone: [facility] 09-04-2024 08:46-0500 Inhaled oxygen flow rate 2 L/min VERO [employer]ST GEOS[employer] SCIENTIST Work Phone: [facility] 09-04-2024 08:46-0500 Respiratory rate 20 /min VERO [employer]ST GEOSPAT[employer] SCIENTIST Work Phone: [facility] 09-04-2024 08:46-0500 SaO2% (BldA) [Mass fraction] 99 % VERO MAST GEOSPATIAL SCIENTIST Work Phone: [facility] 09-04-2024 08:46-0500 Systolic blood pressure 126 mm[Hg] VERO MAST GEOSPATIAL SCIENTIST Work Phone: [facility] 09-03-2024 14:30-0500 Diastolic blood pressure 72 mm[Hg] Blas Merrill MD Work Phone: [facility] 09-03-2024 14:30-0500 Heart rate 92 /min Blas Merrill MD Work Phone: [facility] 09-03-2024 14:30-0500 Respiratory rate 24 /min Blas Merrill MD Work Phone: [facility] 09-03-2024 14:30-0500 SaO2% (BldA) [Mass fraction] 97 % Blas Merrill MD Work Phone: [facility] 09-03-2024 14:30-0500 Systolic blood pressure 126 mm[Hg] Blas Merrill MD Work Phone: [facility] 09-03-2024 13:57-0500 Body temperature 98.01 [degF] Blas Merrill MD Work Phone: [facility] 09-03-2024 12:08-0500 Body height 154.9 cm Blas Merrill MD Work Phone: [facility] 08-27-2024 14:00-0500 Body height 154.9 cm Scott Berrios MD, MPH Work Phone: 5(446)386-849391 [place] [address] 08-27-2024 14:00-0500 Body mass index (BMI) [Ratio] 45.65 kg/m2 Scott Berrios MD, MPH Work Phone: 0(108)245-252291 [place] [address] 08-27-2024 14:00-0500 Body temperature 97.3 [degF] Scott Berrios MD, MPH Work Phone: 9(149)079-964491 [place] [address] 08-27-2024 14:00-0500 Body weight 109.54 kg Scott Berrios MD, MPH Work Phone: 9(766)767-361591 [place] [address] 08-27-2024 14:00-0500 Diastolic blood pressure 67 mm[Hg] Scott Berrios MD, MPH Work Phone: 0(089)195-130591 [place] [address] 08-27-2024 14:00-0500 Heart rate 106 /min Scott Berrios MD, MPH Work Phone: 3(408)016-214391 [place] [address] 08-27-2024 14:00-0500 Respiratory rate 18 /min Scott Berrios MD, MPH Work Phone: 1(944)771-922591 [place] [address] 08-27-2024 14:00-0500 SaO2% (BldA) [Mass fraction] 96 % Scott Berrios MD, MPH Work Phone: 2(249)763-697491 [place] [address] 08-27-2024 14:00-0500 Systolic blood pressure 142 mm[Hg] Scott Berrios MD, MPH Work Phone: 2(874)174-122991 [place] [address] 07-30-2024 13:34-0500 Body height 155.2 cm Scott Berrios MD, MPH Work Phone: 6(345)716-488291 [place] [address] 07-30-2024 13:34-0500 Body mass index (BMI) [Ratio] 44.16 kg/m2 Scott Berrios MD, MPH Work Phone: 0(802)756-783291 [place] [address] 07-30-2024 13:34-0500 Body temperature 97.5 [degF] Scott Berrios MD, MPH Work Phone: 7(870)077-137591 [place] [address] 07-30-2024 13:34-0500 Body weight 106.37 kg Scott Berrios MD, MPH Work Phone: 6(429)208-458391 [place] [address] 07-30-2024 13:34-0500 Diastolic blood pressure 56 mm[Hg] Scott Berrios MD, MPH Work Phone: 6(776)659-032091 [place] [address] 07-30-2024 13:34-0500 Heart rate 94 /min Scott Berrios MD, MPH Work Phone: 0(366)629-673391 [place] [address] 07-30-2024 13:34-0500 Respiratory rate 16 /min Scott Berrios MD, MPH Work Phone: 6(287)865-978491 [place] [address] 07-30-2024 13:34-0500 SaO2% (BldA) [Mass fraction] 93 % Scott Berrios MD, MPH Work Phone: 3(325)392-035691 [place] [address] 07-30-2024 13:34-0500 Systolic blood pressure 112 mm[Hg] Scott Berrios MD, MPH Work Phone: 3(461)085-193491 [place] [address] 07-30-2024 11:54-0500 Body height 155.2 cm Blas Rod MD Work Phone: [facility] Comment on above: with shoes 07-30-2024 11:54-0500 Body mass index (BMI) [Ratio] 44.16 kg/m2 Blas Rod MD Work Phone: [facility] 07-30-2024 11:54-0500 Body temperature 97.5 [degF] Blas Rod MD Work Phone: [facility] 07-30-2024 11:54-0500 Body weight 106.37 kg Blas Rod MD Work Phone: 0(951)649-731950 [address] Comment on above: with shoes 07-30-2024 11:54-0500 Diastolic blood pressure 56 mm[Hg] Blas Rod MD Work Phone: [facility] 07-30-2024 11:54-0500 Heart rate 94 /min Blas Rod MD Work Phone: [facility] 07-30-2024 11:54-0500 Respiratory rate 16 /min Blas Rod MD Work Phone: [facility] 07-30-2024 11:54-0500 SaO2% (BldA) [Mass fraction] 93 % Blas Rod MD Work Phone: [facility] 07-30-2024 11:54-0500 Systolic blood pressure 112 mm[Hg] Blas Rod MD Work Phone: [facility] 07-29-2024 15:07-0500 Body temperature 97 [degF] VERO MAST GEOSPATIAL SCIENTIST Work Phone: [facility] 07-29-2024 15:07-0500 Diastolic blood pressure 81 mm[Hg] VERO MAST GEOSPATIAL SCIENTIST Work Phone: [facility] 07-29-2024 15:07-0500 Heart rate 69 /min VERO MAST GEOSPATIAL SCIENTIST Work Phone: [facility] 07-29-2024 15:07-0500 Respiratory rate 16 /min VERO MAST GEOSPATIAL SCIENTIST Work Phone: [facility] 07-29-2024 15:07-0500 SaO2% (BldA) [Mass fraction] 95 % VERO MAST GEOSPATIAL SCIENTIST Work Phone: [facility] 07-29-2024 15:07-0500 Systolic blood pressure 92 mm[Hg] VERO MAST GEOSPATIAL SCIENTIST Work Phone: [facility] 07-29-2024 15:00-0500 Inhaled oxygen flow rate 2 L/min VERO MAST GEOSPATIAL SCIENTIST Work Phone: [facility] 07-29-2024 12:43-0500 Body mass index (BMI) [Ratio] 44.1 kg/m2 VERO MAST GEOSPATIAL SCIENTIST Work Phone: [facility] 07-29-2024 12:43-0500 Body weight 106 kg VERO MAST GEOSPATIAL SCIENTIST Work Phone: [facility] 07-28-2024 10:20-0500 Body mass index (BMI) [Ratio] 44.7 kg/m2 VERO MAST GEOSPATIAL SCIENTIST Work Phone: [facility] 07-28-2024 10:20-0500 Body weight 107.5 kg VERO MAST GEOSPATIAL SCIENTIST Work Phone: [facility] 07-28-2024 10:20-0500 Diastolic blood pressure 73 mm[Hg] VERO MAST GEOSPATIAL SCIENTIST Work Phone: [facility] 07-28-2024 10:20-0500 Heart rate 86 /min VERO MAST GEOSPATIAL SCIENTIST Work Phone: [facility] 07-28-2024 10:20-0500 SaO2% (BldA) [Mass fraction] 93 % VERO MAST GEOSPATIAL SCIENTIST Work Phone: [facility] 07-28-2024 10:20-0500 Systolic blood pressure 109 mm[Hg] VERO MAST GEOSPATIAL SCIENTIST Work Phone: [facility] 06-23-2024 15:45-0500 Diastolic blood pressure 52 mm[Hg] Blas Merrill MD Work Phone: [facility] 06-23-2024 15:45-0500 Heart rate 85 /min Blas Merrill MD Work Phone: [facility] 06-23-2024 15:45-0500 Respiratory rate 22 /min Blas Merrill MD Work Phone: [facility] 06-23-2024 15:45-0500 SaO2% (BldA) [Mass fraction] 97 % Blas Merrill MD Work Phone: [facility] 06-23-2024 15:45-0500 Systolic blood pressure 111 mm[Hg] Blas Merrill MD Work Phone: [facility] 06-23-2024 15:00-0500 Body temperature 97.81 [degF] Blas Merrill MD Work Phone: [facility] 06-23-2024 12:23-0500 Body height 152.4 cm Blas Merrill MD Work Phone: [facility] 06-08-2024 12:59-0500 Body mass index (BMI) [Ratio] 44 kg/m2 VERO MAST GEOSPATIAL SCIENTIST Work Phone: [facility] 06-08-2024 12:59-0500 Body weight 105.68 kg VERO MAST GEOSPATIAL SCIENTIST Work Phone: [facility] 06-08-2024 12:59-0500 Diastolic blood pressure 67 mm[Hg] VERO MAST GEOSPATIAL SCIENTIST Work Phone: [facility] 06-08-2024 12:59-0500 Heart rate 87 /min VERO MAST GEOSPATIAL SCIENTIST Work Phone: [facility] 06-08-2024 12:59-0500 Inhaled oxygen flow rate 2 L/min VERO MAST GEOSPATIAL SCIENTIST Work Phone: [facility] 06-08-2024 12:59-0500 SaO2% (BldA) [Mass fraction] 96 % VERO MAST GEOSPATIAL SCIENTIST Work Phone: [facility] 06-08-2024 12:59-0500 Systolic blood pressure 95 mm[Hg] VERO MAST GEOSPATIAL SCIENTIST Work Phone: [facility] 05-07-2024 07:45-0400 Body height 152.3 cm Blas Rod MD Work Phone: [facility] Comment on above: w/o shoes 05-07-2024 07:45-0400 Body mass index (BMI) [Ratio] 46.35 kg/m2 Blas Rod MD Work Phone: [facility] 05-07-2024 07:45-0400 Body temperature 97.81 [degF] Blas Rod MD Work Phone: [facility] 05-07-2024 07:45-0400 Body weight 107.5 kg Blas Rod MD Work Phone: [facility] Comment on above: w/o shoes 05-07-2024 07:45-0400 Diastolic blood pressure 67 mm[Hg] Blas Rod MD Work Phone: [facility] 05-07-2024 07:45-0400 Heart rate 87 /min Blas Rod MD Work Phone: [facility] 05-07-2024 07:45-0400 Respiratory rate 18 /min Blas Rod MD Work Phone: [facility] 05-07-2024 07:45-0400 SaO2% (BldA) [Mass fraction] 95 % Blas Rod MD Work Phone: [facility] Comment on above: 2 liters of oxygen 05-07-2024 07:45-0400 Systolic blood pressure 128 mm[Hg] Blas Rod MD Work Phone: [facility] 03-30-2024 02:53-0400 Blood Pressure Location ALDA ABBASI MD [facility] 03-30-2024 02:53-0400 Blood Pressure Method ALDA ABBASI MD [facility] 03-30-2024 02:53-0400 Body height 155 cm ALDA ABBASI MD [facility] 03-30-2024 02:53-0400 Body temperature 97.16 [degF] ALDA ABBASI MD [facility] 03-30-2024 02:53-0400 Body weight 111 kg ALDA ABBASI MD [facility] 03-30-2024 02:53-0400 Diastolic Blood Pressure Non-Invasive 64 mm[Hg] ALDA ABBASI MD [facility] 03-30-2024 02:53-0400 Heart rate 104 /min ALDA ABBASI MD [facility] 03-30-2024 02:53-0400 Respiratory rate 16 /min ALDA ABBASI MD [facility] 03-30-2024 02:53-0400 Systolic Blood Pressure Non-Invasive 123 mm[Hg] ALDA ABBASI MD [facility] 02-25-2024 12:06-[address] URSULA DONATO MD [facility] 02-25-2024 12:06-[address] URSULA DONATO MD [facility] 02-25-2024 12:06-0400 Diastolic Blood Pressure Non-Invasive 74 mm[Hg] DR URSULA DONATO MD [facility] 02-25-2024 12:06-0400 Heart rate 87 /min DR URSULA DONATO MD [facility] 02-25-2024 12:06-0400 Reason For Taking VItal Signs DR URSULA DONATO MD [facility] 02-25-2024 12:06-0400 Respiratory rate 18 /min DR URSULA DONATO MD [facility] 02-25-2024 12:06-0400 Systolic Blood Pressure Non-Invasive 110 mm[Hg] DR URSULA DONATO MD [facility] 02-25-2024 09:12-[address] URSULA DONATO MD [facility] 02-25-2024 09:12-[address] URSULA DONATO MD [facility] 02-25-2024 09:12-0400 Body temperature 97.88 [degF] DR URSULA DONATO MD [facility] 02-25-2024 09:12-0400 Body weight 108.[address] URSULA DONATO MD [facility] 02-25-2024 09:12-0400 Diastolic Blood Pressure Non-Invasive 66 mm[Hg] DR URSULA DONATO MD [facility] 02-25-2024 09:12-0400 Heart rate 92 /min DR URSULA DONATO MD [facility] 02-25-2024 09:12-0400 Respiratory rate 18 /min DR URSULA DONATO MD [facility] 02-25-2024 09:12-0400 Systolic Blood Pressure Non-Invasive 106 mm[Hg] DR URSULA DONATO MD [facility] 05-17-2023 11:27-0400 Body height 154.9 cm Pacc 1 Work Phone: [facility] 05-17-2023 11:27-0400 Body temperature 97.5 [degF] Pacc 1 Work Phone: [facility] 05-17-2023 11:27-0400 Body weight 120.2 kg Pacc 1 Work Phone: [facility] 05-17-2023 11:27-0400 Diastolic blood pressure 62 mm[Hg] Pacc 1 Work Phone: [facility] 05-17-2023 11:27-0400 Heart rate 94 /min Pacc 1 Work Phone: [facility] 05-17-2023 11:27-0400 SaO2% (BldA) [Mass fraction] 98 % Pacc 1 Work Phone: [facility] 05-17-2023 11:27-0400 Systolic blood pressure 94 mm[Hg] Pac 1 Work Phone: [facility] 05-07-2023 13:14-0400 Body height 154.9 cm Yessy Clifford PA-C Work Phone: [facility] 05-07-2023 13:14-0400 Body temperature 97 [degF] Yessy Christopher PA-C Work Phone: [facility] 05-07-2023 13:14-0400 Body weight 120.93 kg Yessy Christopher PA-C Work Phone: [facility] 05-07-2023 13:14-0400 Diastolic blood pressure 78 mm[Hg] Yessy Clifford PA-C Work Phone: [facility] 05-07-2023 13:14-0400 Heart rate 101 /min Yessy Christopher PA-C Work Phone: [facility] 05-07-2023 13:14-0400 SaO2% (BldA) [Mass fraction] 95 % Yessy Clifford PA-C Work Phone: [facility] 05-07-2023 13:14-0400 Systolic blood pressure 124 mm[Hg] Yessy Christopher PA-C Work Phone: [facility] 05-03-2023 10:04-0400 Body weight 122.33 kg Papa Douglass MD Work Phone: [facility] 05-03-2023 10:04-0400 Diastolic blood pressure 74 mm[Hg] Papa Douglass MD Work Phone: [facility] 05-03-2023 10:04-0400 Heart rate 90 /min Papa Douglass MD Work Phone: [facility] 05-03-2023 10:04-0400 Respiratory rate 16 /min Papa Douglass MD Work Phone: [facility] 05-03-2023 10:04-0400 Systolic blood pressure 126 mm[Hg] Papa Douglass MD Work Phone: [facility] 04-20-2023 09:44-0400 SaO2% (BldA) [Mass fraction] 91 % Dr. Papa Douglass Work Phone: [facility] 04-20-2023 09:00-0400 Body temperature 97 [degF] Dr. Papa Douglass Work Phone: [facility] 04-20-2023 09:00-0400 Diastolic blood pressure 66 mm[Hg] Dr. Papa Douglass Work Phone: [facility] 04-20-2023 09:00-0400 Heart rate 82 /min Dr. Papa Douglass Work Phone: [facility] 04-20-2023 09:00-0400 Respiratory rate 14 /min Dr. Papa Douglass Work Phone: [facility] 04-20-2023 09:00-0400 Systolic blood pressure 110 mm[Hg] Dr. Papa Douglass Work Phone: [facility] 04-20-2023 07:24-0400 Inhaled oxygen flow rate 1 L/min Dr. Papa Douglass Work Phone: [facility] 04-20-2023 03:34-0400 Body mass index (BMI) [Ratio] 49 kg/m2 Dr. Papa Douglass Work Phone: [facility] 04-20-2023 03:34-0400 Body weight 117.[address] Papa Douglass Work Phone: [facility] 04-19-2023 13:49-0400 Body height 154.[address] Ppaa Douglass Work Phone: 0(604)629-042693 [place] [address] 04-17-2023 09:18-0400 Body mass index (BMI) [Ratio] 49.4 kg/m2 Dr. Papa Douglass Work Phone: 2(547)184-148293 [place] [address] 04-17-2023 09:18-0400 Body temperature 98.4 [degF] Dr. Papa Douglass Work Phone: 9(862)148-846218 [address] 04-17-2023 09:18-0400 Body weight 118.[address] Papa Douglass Work Phone: 6(456)039-394993 [place] [address] 04-17-2023 09:18-0400 Diastolic blood pressure 72 mm[Hg] Dr. Papa Douglass Work Phone: 8(488)478-482493 [place] [address] 04-17-2023 09:18-0400 Heart rate 86 /min Dr. Papa Douglass Work Phone: 0(732)615-231193 [place] [address] 04-17-2023 09:18-0400 Respiratory rate 18 /min Dr. Papa Douglass Work Phone: 0(930)202-913393 [place] [address] 04-17-2023 09:18-0400 SaO2% (BldA) [Mass fraction] 95 % Dr. Papa Douglass Work Phone: 7(243)271-781693 [place] [address] 04-17-2023 09:18-0400 Systolic blood pressure 112 mm[Hg] Dr. Papa Douglass Work Phone: [facility] 03-05-2023 08:40-0400 Diastolic blood pressure 73 mm[Hg] Maribrittney Prettyle DO Work Phone: [facility] 03-05-2023 08:40-0400 Heart rate 86 /min Mari Jernigan DO Work Phone: [facility] 03-05-2023 08:40-0400 SaO2% (BldA) [Mass fraction] 95 % Mari Jernigan DO Work Phone: [facility] 03-05-2023 08:40-0400 Systolic blood pressure 106 mm[Hg] Mari Jernigan DO Work Phone: [facility] 02-18-2023 11:26-0400 Body mass index (BMI) [Ratio] 49 kg/m2 Dr. Papa Douglass Work Phone: [facility] 02-18-2023 11:26-0400 Body temperature 98.1 [degF] Dr. Papa Douglass Work Phone: [facility] 02-18-2023 11:26-0400 Body weight 117.[address] Papa Douglass Work Phone: [facility] 02-18-2023 11:26-0400 Diastolic blood pressure 62 mm[Hg] Dr. Papa Douglass Work Phone: [facility] 02-18-2023 11:26-0400 Heart rate 68 /min Dr. Papa Douglass Work Phone: [facility] 02-18-2023 11:26-0400 Respiratory rate 18 /min Dr. Papa Douglass Work Phone: [facility] 02-18-2023 11:26-0400 SaO2% (BldA) [Mass fraction] 96 % Dr. Papa Douglass Work Phone: [facility] 02-18-2023 11:26-0400 Systolic blood pressure 90 mm[Hg] Dr. Papa Douglass Work Phone: [facility] 01-20-2023 23:17-0400 Diastolic blood pressure 69 mm[Hg] [facility] 01-20-2023 23:17-0400 Heart rate 72 /min [facility] 01-20-2023 23:17-0400 Respiratory rate 18 /min [facility] 01-20-2023 23:17-0400 SaO2% (BldA) [Mass fraction] 99 % [facility] 01-20-2023 23:17-0400 Systolic blood pressure 114 mm[Hg] [facility] 01-20-2023 17:42-0400 Body height 154.94 cm [facility] 01-20-2023 17:42-0400 Body mass index (BMI) [Ratio] 49 kg/m2 [facility] 01-20-2023 17:42-0400 Body temperature 96.9 [degF] [facility] 01-20-2023 17:42-0400 Body weight 117.75 kg [facility] 01-19-2023 08:10-0400 Body weight 116.39 kg Papa Douglass MD Work Phone: [facility] 01-19-2023 08:10-0400 Diastolic blood pressure 76 mm[Hg] Papa Douglass MD Work Phone: [facility] 01-19-2023 08:10-0400 Heart rate 86 /min Papa Douglass MD Work Phone: [facility] 01-19-2023 08:10-0400 Respiratory rate 16 /min Papa Douglass MD Work Phone: [facility] 01-19-2023 08:10-0400 SaO2% (BldA) [Mass fraction] 96 % Papa Douglass MD Work Phone: [facility] 01-19-2023 08:10-0400 Systolic blood pressure 118 mm[Hg] Papa Douglass MD Work Phone: [facility] 01-07-2023 14:04-0400 Diastolic blood pressure 55 mm[Hg] [facility] 01-07-2023 14:04-0400 Systolic blood pressure 114 mm[Hg] [facility] 01-07-2023 12:51-0400 Body height 154.94 cm [facility] 01-07-2023 12:51-0400 Body mass index (BMI) [Ratio] 48.5 kg/m2 [facility] 01-07-2023 12:51-0400 Body temperature 97.9 [degF] [facility] 01-07-2023 12:51-0400 Body weight 116.57 kg [facility] 01-07-2023 12:51-0400 Heart rate 99 /min [facility] 01-07-2023 12:51-0400 Respiratory rate 18 /min [facility] 01-07-2023 12:51-0400 SaO2% (BldA) [Mass fraction] 94 % [facility] 10-25-2022 11:13-0400 Body temperature 97.7 [degF] [facility] 10-25-2022 11:13-0400 Diastolic blood pressure 60 mm[Hg] [facility] 10-25-2022 11:13-0400 Heart rate 75 /min [facility] 10-25-2022 11:13-0400 Respiratory rate 18 /min [facility] 10-25-2022 11:13-0400 SaO2% (BldA) [Mass fraction] 92 % [facility] 10-25-2022 11:13-0400 Systolic blood pressure 106 mm[Hg] [facility] 10-25-2022 08:54-0400 Body height 154.94 cm [facility] 10-25-2022 08:54-0400 Body mass index (BMI) [Ratio] 47.4 kg/m2 [facility] 10-25-2022 08:54-0400 Body weight 113.85 kg [facility] 10-10-2022 05:05-0400 Body height 154.94 cm [facility] 10-10-2022 05:05-0400 Body mass index (BMI) [Ratio] 47.4 kg/m2 [facility] 10-10-2022 05:05-0400 Body temperature 97.2 [degF] [facility] 10-10-2022 05:05-0400 Body weight 113.85 kg [facility] 10-10-2022 05:05-0400 Diastolic blood pressure 98 mm[Hg] [facility] 10-10-2022 05:05-0400 Heart rate 94 /min [facility] 10-10-2022 05:05-0400 Respiratory rate 20 /min [facility] 10-10-2022 05:05-0400 SaO2% (BldA) [Mass fraction] 97 % [facility] 10-10-2022 05:05-0400 Systolic blood pressure 137 mm[Hg] [facility] 10-01-2022 09:04-0400 Body temperature 98.4 [degF] Coco Tannhof [employer] Work Phone: [facility] 10-01-2022 09:04-0400 Body weight 112.49 kg Coco Tannhof [employer] Work Phone: [facility] 10-01-2022 09:04-0400 Diastolic blood pressure 64 mm[Hg] Coco Tannhof [employer] Work Phone: [facility] 10-01-2022 09:04-0400 Heart rate 86 /min Coco Tannhof [employer] Work Phone: [facility] 10-01-2022 09:04-0400 Respiratory rate 16 /min Coco Tannhof G[employer] Work Phone: [facility] 10-01-2022 09:04-0400 SaO2% (BldA) [Mass fraction] 98 % Coco Tannhof [employer] Work Phone: [facility] 10-01-2022 09:04-0400 Systolic blood pressure 118 mm[Hg] Coco Tannhof [employer] Work Phone: [facility] 09-27-2022 09:46-0500 Body weight 110.22 kg Coco Tannhof [employer] Work Phone: [facility] 09-27-2022 09:46-0500 Diastolic blood pressure 72 mm[Hg] Coco Tannhof [employer] Work Phone: [facility] 09-27-2022 09:46-0500 Heart rate 78 /min Coco Tannhof [employer] Work Phone: [facility] 09-27-2022 09:46-0500 Respiratory rate 20 /min Coco Tannhof [employer] Work Phone: [facility] 09-27-2022 09:46-0500 SaO2% (BldA) [Mass fraction] 98 % Coco Waters APRN.[employer] Work Phone: [facility] 09-27-2022 09:46-0500 Systolic blood pressure 120 mm[Hg] Coco Waters APRN.[employer] Work Phone: [facility] 09-21-2022 18:07-0500 Diastolic blood pressure 78 mm[Hg] [facility] 09-21-2022 18:07-0500 Heart rate 84 /min [facility] 09-21-2022 18:07-0500 Respiratory rate 19 /min [facility] 09-21-2022 18:07-0500 SaO2% (BldA) [Mass fraction] 95 % [facility] 09-21-2022 18:07-0500 Systolic blood pressure 131 mm[Hg] [facility] 09-21-2022 14:10-0500 Body height 154.94 cm [facility] 09-21-2022 14:10-0500 Body mass index (BMI) [Ratio] 47.3 kg/m2 [facility] 09-21-2022 14:10-0500 Body temperature 97.4 [degF] [facility] 09-21-2022 14:10-0500 Body weight 113.67 kg [facility] 09-21-2022 13:37-0500 Body temperature 97.3 [degF] Sabine Borrego APRN.[employer] Work Phone: [facility] 09-21-2022 13:37-0500 Body weight 114.13 kg Sabine Borrego APRN.[employer] Work Phone: [facility] 09-21-2022 13:37-0500 Diastolic blood pressure 72 mm[Hg] Sabine Borrego APRN.[employer] Work Phone: [facility] 09-21-2022 13:37-0500 Heart rate 73 /min Sabine Borrego APRN.[employer] Work Phone: [facility] 09-21-2022 13:37-0500 Respiratory rate 18 /min Sabine Borrego APRN.[employer] Work Phone: [facility] 09-21-2022 13:37-0500 SaO2% (BldA) [Mass fraction] 98 % Sabine Borrego APRN.[employer] Work Phone: [facility] 09-21-2022 13:37-0500 Systolic blood pressure 118 mm[Hg] Sabine Borrego APRN.[employer] Work Phone: [facility] 08-31-2022 15:06-0500 Body temperature 97 [degF] [facility] 08-31-2022 15:06-0500 Diastolic blood pressure 67 mm[Hg] [facility] 08-31-2022 15:06-0500 Heart rate 75 /min [facility] 08-31-2022 15:06-0500 Respiratory rate 16 /min [facility] 08-31-2022 15:06-0500 SaO2% (BldA) [Mass fraction] 94 % [facility] 08-31-2022 15:06-0500 Systolic blood pressure 112 mm[Hg] [facility] 08-31-2022 13:59-0500 Body height 154.94 cm [facility] 08-31-2022 13:59-0500 Body mass index (BMI) [Ratio] 27.3 kg/m2 [facility] 08-31-2022 13:59-0500 Body weight 65.77 kg [facility] 08-30-2022 16:22-0500 Diastolic blood pressure 58 mm[Hg] Dionne Turner MD Work Phone: [facility] 08-30-2022 16:22-0500 Heart rate 75 /min Dionne Turner MD Work Phone: [facility] 08-30-2022 16:22-0500 SaO2% (BldA) [Mass fraction] 95 % Dionne Turner MD Work Phone: [facility] 08-30-2022 16:22-0500 Systolic blood pressure 110 mm[Hg] Dionne Turner MD Work Phone: [facility] 08-30-2022 14:03-0500 Body weight 110.68 kg Dionne Turner MD Work Phone: [facility] 08-12-2022 13:18-0500 Body height 154.94 cm [facility] 08-12-2022 13:18-0500 Body mass index (BMI) [Ratio] 46.3 kg/m2 [facility] 08-12-2022 13:18-0500 Body temperature 96.5 [degF] [facility] 08-12-2022 13:18-0500 Body weight 111.13 kg [facility] 08-12-2022 13:18-0500 Diastolic blood pressure 70 mm[Hg] [facility] 08-12-2022 13:18-0500 Heart rate 92 /min [facility] 08-12-2022 13:18-0500 Respiratory rate 18 /min [facility] 08-12-2022 13:18-0500 SaO2% (BldA) [Mass fraction] 98 % [facility] 08-12-2022 13:18-0500 Systolic blood pressure 129 mm[Hg] [facility] 08-07-2022 06:59-0500 Body weight 110.95 kg Mela Garcia APRN.DRILL HAND Work Phone: [facility] 08-07-2022 06:59-0500 Diastolic blood pressure 68 mm[Hg] Mela Garcia APRN.DRILL HAND Work Phone: [facility] 08-07-2022 06:59-0500 Systolic blood pressure 120 mm[Hg] Mela Garcia APRN.DRILL HAND Work Phone: [facility] 07-18-2022 10:37-0500 Body height 154.9 cm Marissa Podlogar G[employer] Work Phone: [facility] 07-18-2022 10:37-0500 Body temperature 96.69 [degF] Marissa Podlogar [employer] Work Phone: [facility] 07-18-2022 10:37-0500 Body weight 112.95 kg Marissa Podlogar G[employer] Work Phone: [facility] 07-18-2022 10:37-0500 Diastolic blood pressure 60 mm[Hg] Marissa Podlogar G[employer] Work Phone: [facility] 07-18-2022 10:37-0500 Heart rate 80 /min Marissa Podlogar G[employer] Work Phone: [facility] 07-18-2022 10:37-0500 Respiratory rate 16 /min Marissa Podlogar G[employer] Work Phone: [facility] 07-18-2022 10:37-0500 SaO2% (BldA) [Mass fraction] 97 % Marissa Podlogar [employer] Work Phone: [facility] 07-18-2022 10:37-0500 Systolic blood pressure 136 mm[Hg] Marissa Podlogar [employer] Work Phone: [facility] 06-28-2022 09:51-0500 Body weight 108.86 kg Cocokobi Gonzalezhof G[employer] Work Phone: [facility] 06-28-2022 09:51-0500 Diastolic blood pressure 66 mm[Hg] Coco Tannhof [employer] Work Phone: [facility] 06-28-2022 09:51-0500 Heart rate 88 /min Coco Tannhof [employer] Work Phone: [facility] 06-28-2022 09:51-0500 Respiratory rate 16 /min Coco Tannhof G[employer] Work Phone: [facility] 06-28-2022 09:51-0500 SaO2% (BldA) [Mass fraction] 98 % Coco Tannhof G[employer] Work Phone: [facility] 06-28-2022 09:51-0500 Systolic blood pressure 112 mm[Hg] Coco Tannhof [employer] Work Phone: [facility] 06-26-2022 09:39-0500 Body temperature 97.81 [degF] Génesis Athy PA-C Work Phone: [facility] 06-26-2022 09:39-0500 Body weight 106.59 kg Génesis Athy PA-C Work Phone: [facility] 06-26-2022 09:39-0500 Diastolic blood pressure 62 mm[Hg] Génesis Athy PA-C Work Phone: [facility] 06-26-2022 09:39-0500 Heart rate 104 /min Génesis Athy PA-C Work Phone: [facility] 06-26-2022 09:39-0500 Respiratory rate 18 /min Génesis Athy PA-C Work Phone: [facility] 06-26-2022 09:39-0500 SaO2% (BldA) [Mass fraction] 95 % Génesis Athy PA-C Work Phone: [facility] 06-26-2022 09:39-0500 Systolic blood pressure 122 mm[Hg] Génesis Athy PA-C Work Phone: [facility] 06-21-2022 08:10-0500 Body weight 108.41 kg Coco Lisahof G[employer] Work Phone: [facility] 06-21-2022 08:10-0500 Diastolic blood pressure 74 mm[Hg] Coco Tannhof [employer] Work Phone: [facility] 06-21-2022 08:10-0500 Heart rate 83 /min Coco Tannhof [employer] Work Phone: [facility] 06-21-2022 08:10-0500 Respiratory rate 16 /min Coco Tannhof [employer] Work Phone: [facility] 06-21-2022 08:10-0500 SaO2% (BldA) [Mass fraction] 99 % Coco Tannhof [employer] Work Phone: [facility] 06-21-2022 08:10-0500 Systolic blood pressure 112 mm[Hg] Coco Tannhof [employer] Work Phone: [facility] 06-17-2022 13:04-0500 Heart rate 102 /min [facility] 06-17-2022 13:04-0500 SaO2% (BldA) [Mass fraction] 94 % [facility] 06-17-2022 12:33-0500 Body height 154.94 cm [facility] Work Phone: 06-17-2022 12:33-0500 Body mass index (BMI) [Ratio] 45.7 kg/m2 [facility] 06-17-2022 12:33-0500 Body temperature 96.8 [degF] [facility] 06-17-2022 12:33-0500 Body weight 109.76 kg [facility] 06-17-2022 12:33-0500 Diastolic blood pressure 75 mm[Hg] [facility] 06-17-2022 12:33-0500 Respiratory rate 15 /min [facility] 06-17-2022 12:33-0500 Systolic blood pressure 145 mm[Hg] [facility] 06-08-2022 21:53-0500 Respiratory rate 18 /min Dr. Papa Douglass Work Phone: [facility] 06-08-2022 21:16-0500 Body height 154.[address] Papa Douglass Work Phone: [facility] Work Phone: 06-08-2022 21:16-0500 Body mass index (BMI) [Ratio] 45.3 kg/m2 Dr. Papa Douglass Work Phone: [facility] 06-08-2022 21:16-0500 Body temperature 97.2 [degF] Dr. Papa Douglass Work Phone: [facility] 06-08-2022 21:16-0500 Body weight 108.[address] Papa Douglass Work Phone: [facility] 06-08-2022 21:16-0500 Diastolic blood pressure 64 mm[Hg] Dr. Papa Douglass Work Phone: [facility] 06-08-2022 21:16-0500 Heart rate 74 /min Dr. Papa Douglass Work Phone: [facility] 06-08-2022 21:16-0500 SaO2% (BldA) [Mass fraction] 96 % Dr. Papa Douglass Work Phone: [facility] 06-08-2022 21:16-0500 Systolic blood pressure 137 mm[Hg] Dr. Papa Douglass Work Phone: [facility] 03-19-2022 11:34-0400 Body weight 107.05 kg Coco Bensonf [employer] Work Phone: [facility] 03-19-2022 11:34-0400 Diastolic blood pressure 62 mm[Hg] Coco Gonzalezhof [employer] Work Phone: [facility] 03-19-2022 11:34-0400 Heart rate 100 /min oCco Gonzalezhof [employer] Work Phone: [facility] 03-19-2022 11:34-0400 Respiratory rate 16 /min Coco Gonzalezhof [employer] Work Phone: [facility] 03-19-2022 11:34-0400 SaO2% (BldA) [Mass fraction] 98 % Coco Bensonf [employer] Work Phone: [facility] 03-19-2022 11:34-0400 Systolic blood pressure 108 mm[Hg] Coco Gonzalezhof [employer] Work Phone: [facility] 03-14-2022 13:03-0400 Body weight 106.14 kg Gretchen Ibarraoce [employer] Work Phone: [facility] 02-16-2022 12:24-0400 Body temperature 96.49 [degF] Bia Jacinto [employer] Work Phone: [facility] 02-16-2022 12:24-0400 Body weight 108.41 kg Bia Jacinto [employer] Work Phone: [facility] 02-16-2022 12:24-0400 Diastolic blood pressure 72 mm[Hg] Bia Jacinto [employer] Work Phone: [facility] 02-16-2022 12:24-0400 Heart rate 91 /min Bia Jacinto [employer] Work Phone: [facility] 02-16-2022 12:24-0400 Respiratory rate 20 /min Bia Jacinto [employer] Work Phone: [facility] 02-16-2022 12:24-0400 SaO2% (BldA) [Mass fraction] 96 % Bia Jacinto [employer] Work Phone: [facility] 02-16-2022 12:24-0400 Systolic blood pressure 110 mm[Hg] Bia Jacinto [employer] Work Phone: [facility] 02-11-2022 09:25-0400 SaO2% (BldA) [Mass fraction] 96 % Dr. Papa Douglass Work Phone: [facility] Work Phone: 02-11-2022 09:20-0400 Body temperature 97.8 [degF] Dr. Papa Douglass Work Phone: [facility] Work Phone: 02-11-2022 09:20-0400 Diastolic blood pressure 60 mm[Hg] Dr. Papa Douglass Work Phone: [facility] Work Phone: 02-11-2022 09:20-0400 Heart rate 80 /min Dr. Papa Douglass Work Phone: [facility] Work Phone: 02-11-2022 09:20-0400 Respiratory rate 18 /min Dr. Papa Douglass Work Phone: [facility] Work Phone: 02-11-2022 09:20-0400 Systolic blood pressure 113 mm[Hg] Dr. Papa Douglass Work Phone: [facility] Work Phone: 02-10-2022 14:18-0400 Body height 154.[address] Papa Douglass Work Phone: [facility] Work Phone: 02-10-2022 14:18-0400 Body weight 106.[address] Papa Douglass Work Phone: [facility] Work Phone: 02-09-2022 20:44-0400 Body mass index (BMI) [Ratio] 44.4 kg/m2 Dr. Papa Douglass Work Phone: [facility] Work Phone: 02-09-2022 20:27-0400 Diastolic blood pressure 68 mm[Hg] [facility] Work Phone: 02-09-2022 20:27-0400 Systolic blood pressure 117 mm[Hg] [facility] Work Phone: 02-09-2022 19:39-0400 Body temperature 97.9 [degF] [facility] Work Phone: 02-09-2022 19:39-0400 Heart rate 99 /min [facility] Work Phone: 02-09-2022 19:39-0400 Respiratory rate 18 /min [facility] Work Phone: 02-09-2022 19:39-0400 SaO2% (BldA) [Mass fraction] 97 % [facility] Work Phone: 02-09-2022 17:44-0400 Body height 154.94 cm [facility] Work Phone: 02-09-2022 17:44-0400 Body mass index (BMI) [Ratio] 44.1 kg/m2 [facility] Work Phone: 02-09-2022 17:44-0400 Body weight 106 kg [facility] Work Phone: 02-08-2022 14:04-0400 Body weight 105.6 kg Papa Douglass MD Work Phone: [facility] 02-08-2022 14:04-0400 Diastolic blood pressure 72 mm[Hg] Papa Douglass MD Work Phone: [facility] 02-08-2022 14:04-0400 Heart rate 100 /min Papa Douglass MD Work Phone: [facility] 02-08-2022 14:04-0400 Respiratory rate 16 /min Papa Douglass MD Work Phone: [facility] 02-08-2022 14:04-0400 Systolic blood pressure 120 mm[Hg] Papa Douglass MD Work Phone: [facility] 10-16-2021 10:57-0400 Body temperature 97.81 [degF] Sasha Alexandre [employer] Work Phone: [facility] 10-16-2021 10:57-0400 Body weight 107.41 kg Sashabhargav Schroeder [employer] Work Phone: [facility] 10-16-2021 10:57-0400 Diastolic blood pressure 70 mm[Hg] Sasha Alexandre G[employer] Work Phone: [facility] 10-16-2021 10:57-0400 Heart rate 102 /min Sasha Alexandre [employer] Work Phone: [facility] 10-16-2021 10:57-0400 Respiratory rate 20 /min Sasha Alexandre G[employer] Work Phone: [facility] 10-16-2021 10:57-0400 SaO2% (BldA) [Mass fraction] 96 % Sasha Alexandre [employer] Work Phone: [facility] 10-16-2021 10:57-0400 Systolic blood pressure 108 mm[Hg] Sasha Alexandre G[employer] Work Phone: [facility] Encounters Encounter Date Encounter Type Care Provider Facility Start: 12-31-2024 ambulatory VERO MAST Facility:[facility] Start: 12-31-2024 End: 12-31-2024 Telemedicine consultation with patient Scott Berrios MD, MPH Work Phone: Division of Medical Oncology Comment on above: Neuroendocrine neopl asm of stomach (Primary Dx); Neuroendocrine cancer; Hepatosplenomegaly; Elevated transaminase level Start: 12-30-2024 End: 12-30-2024 Patient encounter procedure Neal Ruiz [facility] Work Phone: Start: 12-30-2024 End: 12-30-2024 ambulatory VERO MAST GEOSPATIAL SCIENTIST Work Phone: [facility] Work Phone: Start: 12-24-2024 End: 12-24-2024 Clinical Support Encounter Scott Berrios MD, MPH Work Phone: Clinical [facility] Comment on above: Neuroendocrine neopl asm of stomach Start: 12-24-2024 ambulatory SCOTT BERRIOS Facility: [facility] Start: 12-24-2024 End: 12-24-2024 Subsequent hospital visit by physician Scott Berrios MD, MPH Work Phone: [facility] Comment on above: Arrived Start: 12-02-2024 End: 12-06-2024 ambulatory VERO MAST G[employer] Facility:[facility] Start: 12-02-2024 End: 12-06-2024 Outreach Lab VERO MAST [employer] [facility] Start: 11-17-2024 End: 12-18-2024 ambulatory Papa Douglass MD Work Phone: [facility] Start: 11-16-2024 Encounter for genera l adult medical examination without abnormal findings Elsa José [facility] Start: 11-12-2024 End: 11-12-2024 Patient encounter procedure PRIMARY HEALTH CARE NURSE Elsa José -Sleep Lab Work Phone: Start: 11-12-2024 End: 11-12-2024 ambulatory Elsa José Facility:[facility] Start: 11-06-2024 End: 11-10-2024 ambulatory VERO MAST G[employer] Facility:[facility] Start: 11-06-2024 End: 11-10-2024 Outreach Lab VERO MAST [employer] [facility] Start: 11-03-2024 End: 11-03-2024 Emergency department patient visit VERO MAST GEOSPATIAL SCIENTIST Work Phone: -Emergency Department Work Phone: Start: 10-30-2024 End: 10-30-2024 Patient encounter procedure ARVIND José -[facility] Work Phone: Start: 10-30-2024 End: 10-30-2024 ambulatory VERO MAST Facility:[facility] Start: 10-23-2024 End: 10-23-2024 ambulatory VERO MAST GEOSPATIAL SCIENTIST Work Phone: [facility] Work Phone: Start: 10-23-2024 End: 10-23-2024 Patient encounter procedure ARVIND José -Sleep Lab Work Phone: Start: 10-23-2024 End: 10-23-2024 ambulatory Elsa José Facility:[facility] Start: 10-14-2024 ambulatory Elsa José Facili ty:[facility] Start: 10-14-2024 Non-patient / Non-visit Dr. Alberto lott DO -[facility] Start: 10-06-2024 End: 10-06-2024 ambulatory VERO MAST GEOSPATIAL SCIENTIST Work Phone: [facility] Work Phone: Start: 10-06-2024 End: 10-06-2024 Patient encounter procedure ARVIND José -Pulmonary Services/Neurology Work Phone: Start: 10-05-2024 End: 10-06-2024 ambulatory VERO MAST GEOSPATIAL SCIENTIST Work Phone: [facility] Work Phone: Start: 10-05-2024 End: 10-05-2024 Patient encounter procedure ARVIND José -Pulmonary Services/Neurology Work Phone: Start: 10-05-2024 End: 10-05-2024 ambulatory Elsa José Facility:[facility] Start: 09-30-2024 End: 09-30-2024 Emergency department patient visit VERO MAST GEOSPATIAL SCIENTIST Work Phone: -Emergency Department Work Phone: Start: 09-29-2024 End: 09-30-2024 ambulatory Rosa Cardenas RN NURSE DOCTOR OF VETERINARY MEDICINE Comment on above: Foot Pain (Midfoot) Start: 09-28-2024 End: 09-28-2024 ambulatory VERO MAST GEOSPATIAL SCIENTIST Work Phone: [facility] Work Phone: Start: 09-28-2024 End: 09-28-2024 Patient encounter procedure ARVIND José -Sleep Lab Work Phone: Start: 09-28-2024 End: 09-28-2024 ambulatory Elsa José Facility:[facility] Start: 09-24-2024 End: 09-24-[address] Scott Berrios MD -Laboratory Work Phone: Start: 09-24-2024 End: 09-24-2024 ambulatory VERO MAST GEOSPATIAL SCIENTIST Work Phone: [facility] Work Phone: Start: 09-24-2024 End: 09-24-2024 ambulatory Scott Berrios Facility:[facility] Start: 09-21-2024 End: 09-23-2024 Telephone encounter Supriya Stone RN Division of Medical Oncology Comment on above: Lab Review Start: 09-15-2024 End: 09-15-2024 ambulatory VERO MAST G[employer] Facility:[facility] Start: 09-15-2024 End: 09-15-2024 Patient encounter procedure VERO MAST GOLD BLOWER[employer]DRILL HAND [facility] Start: 09-07-2024 ambulatory VERO MAST Facility:[facility] Start: 09-04-2024 End: 09-04-2024 Patient encounter procedure PRIMARY HEALTH CARE NURSE Elsa José [facility] Pulmonary Medicine Work Phone: Start: 09-04-2024 End: 09-04-2024 ambulatory VERO MAST Facility:[facility] Start: 09-03-2024 End: 09-03-2024 Subsequent hospital visit by physician Blas Merrill MD Work Phone: [facility] Start: 09-03-2024 ambulatory VERO MAST Facility:[facility] Start: 09-02-2024 End: 09-06-2024 ambulatory VERO MAST G[employer] HAND Facility:[facility] Start: 09-02-2024 End: 09-06-2024 Encounter for general adult medical examination without abnormal findings VERO MAST G[employer]RILL HAND Facility:[facility] Start: 09-02-2024 End: 09-06-2024 Outreach Lab VERO MAST GOLD [employer]RILL [employer] [facility] Start: 08-27-2024 ambulatory VERO MAST Facility:[facility] Start: 08-27-2024 End: 08-27-2024 Office outpatient visit 40 minutes Scott Berrios MD, MPH Work Phone: Division of Medical Oncology Comment on above: Microcytic anemia (P rimary Dx) Microcytic anemia (P rimary Dx); Iron deficiency anemia, unspecified iron deficiency anemia type Microcytic anemia (P rimary Dx); Iron deficiency anemia, unspecified iron deficiency anemia type; Neuroendocrine cancer Start: 08-27-2024 ambulatory VERO MAST Facility:[facility] Start: 08-14-2024 ambulatory VERO MAST Facility:[facility] Start: 08-14-2024 ambulatory VERO MAST Facility:[facility] Start: 08-12-2024 ambulatory SCOTT BERRIOS Facility: [facility] Start: 07-31-2024 End: 07-31-2024 Telephone encounter Scott Berrios MD, MPH Work Phone: Division of Endocrinology Comment on above: Appointment Start: 07-30-2024 End: 07-30-2024 Coordination of care plan Gia Kilgore RN Division of Medical Oncology Comment on above: Complex care coordin ation (Primary Dx) Start: 07-30-2024 End: 07-30-2024 Office consultation new/estab patient 80 min Scott Berrios MD, MPH Work Phone: Division of Medical Oncology Comment on above: Neuroendocrine neopl asm of stomach (Primary Dx); Neuroendocrine cancer Start: 07-30-2024 End: 07-30-2024 Office outpatient visit 25 minutes Blas Rod MD Work Phone: Division of Surgical Oncology Comment on above: Neuroendocrine tumor (Primary Dx) Start: 07-30-2024 End: 07-30-2024 ambulatory Gia Kilgore RN Division of Medical Oncology Start: 07-30-2024 End: 07-30-2024 Subsequent hospital visit by physician Karolina Piedra APRN-DRILL HAND, DNP Work Phone: [facility] Comment on above: Arrived Start: 07-29-2024 Non-patient / Non-visit Brayan Heath nd DO -[facility] Start: 07-29-2024 End: 07-29-2024 Admission to same day surgery center Brayan Cast DO -Endoscopy Work Phone: Start: 07-29-2024 End: 07-29-2024 ambulatory VERO MAST Facility:[facility] Start: 07-28-2024 End: 07-28-[address] Ralph Singh MD -[facility] Work Phone: Start: 07-28-2024 End: 07-28-2024 ambulatory VERO MAST Facility:[facility] Start: 07-24-2024 End: 07-24-[address] Ralph Singh MD -Ultrasound, [facility] Work Phone: Start: 07-24-2024 End: 07-24-2024 ambulatory VERO MAST Facility:[facility] Start: 07-09-2024 ambulatory BLAS SHAHYD Facility :[facility] Start: 07-02-2024 ambulatory VERO MAST Facility:[facility] Start: 06-23-2024 End: 06-23-2024 Subsequent hospital visit by physician Blas Merrill MD Work Phone: [facility] Start: 06-23-2024 ambulatory VERO MAST Facility:[facility] Start: 06-16-2024 End: 06-16-[address] Ralph Singh MD -Nuclear Medicine, [facility] Work Phone: Start: 06-16-2024 End: 06-16-2024 ambulatory Ralph Singh Facility:[facility] Start: 06-08-2024 End: 06-08-2024 Patient encounter procedure Jaziel HERNANDEZ -[facility] Work Phone: Start: 06-08-2024 End: 06-08-2024 ambulatory VERO MAST Facility:[facility] Start: 06-02-2024 End: 06-02-[address] Ralph Singh MD -Laboratory, Specimen Work Phone: Start: 06-02-2024 End: 06-02-2024 ambulatory VERO MAST Facility:[facility] Start: 05-29-2024 End: 05-29-2024 ambulatory Trena Neff Facility:[facility] Start: 05-29-2024 End: 05-29-2024 ambulatory VERO MAST Facility:[facility] Start: 05-21-2024 End: 05-25-2024 [facility] [facility] Facility:[facility] Start: 05-21-2024 End: 05-21-2024 ambulatory VERO MAST G[employer] Facility:[facility] Start: 05-21-2024 End: 05-21-2024 Patient encounter procedure MARYAQUILINO [facility] GOLD BLOWER-DRILL HAND [facility] Start: 05-12-2024 End: 05-12-2024 ambulatory VERO MAST Facility:[facility] Start: 05-11-2024 End: 05-11-2024 ambulatory VERO MAST GOLD BLOWER[employer]DRILL HAND Facility:[facility] Start: 05-11-2024 End: 05-11-2024 Patient encounter procedure VERO MAST GOLD BLOWER-DRILL HAND [facility] Start: 05-09-2024 End: 05-09-2024 ambulatory VERO MAST Facility:[facility] Start: 05-07-2024 End: 05-07-2024 Office outpatient new 60 minutes Blas Rod MD Work Phone: Division of Surgical Oncology Comment on above: Neuroendocrine tumor (Primary Dx) Start: 05-07-2024 End: 05-07-2024 Clinical Support Encounter Blas Rod MD Work Phone: Clinical Lab [facility] Comment on above: Neuroendocrine tumor Start: 05-07-2024 ambulatory BLAS ROD Facility :[facility] Start: 05-05-2024 End: 05-05-2024 ambulatory VERO MAST G[employer]LL HAND Facility:[facility] Start: 05-05-2024 End: 05-05-2024 Patient encounter procedure VERO MAST G[employer]RILL [employer] [facility] Start: 04-23-2024 End: 04-23-2024 ambulatory VERO MAST G[employer] Facility:[facility] Start: 04-23-2024 End: 04-23-2024 Patient encounter procedure AMADOU CLINTON MD [facility] Start: 04-16-2024 End: 04-16-2024 ambulatory Joseluis Riggins Facility:[facility] Start: 04-16-2024 End: 04-16-2024 ambulatory Abram Becker Facility:[facility] Start: 04-14-2024 End: 04-14-2024 ambulatory VERO MAST Facility:[facility] Start: 04-13-2024 End: 04-17-2024 ambulatory VERO MAST GOLD BLOWER[employer]DRILL HAND Facility:[facility] Start: 04-13-2024 End: 04-17-2024 Outreach Lab VERO MAST G[employer] [facility] Start: 04-06-2024 ambulatory VERO MAST GOLD BL[employer]DRILL HAND Facility:[facility] Start: 04-03-2024 ambulatory Sergo Becker Tressa Granda ility:[facility] Start: 04-03-2024 End: 04-07-2024 Evaluation and management of inpatient Law Trinh Facility:[facility] Start: 03-30-2024 End: 03-30-2024 Emergency department patient visit ALDA ABBASI MD [facility] Start: 03-17-2024 End: 03-21-2024 ambulatory K[facility] G[employer] BL[employer]LL [employer] Facility:[facility] Start: 03-17-2024 End: 03-21-2024 Outreach Lab [facility] [facility] Start: 03-16-2024 End: 03-16-2024 Patient encounter procedure [facility] Start: 03-16-2024 End: 03-20-2024 ambulatory [facility] Facility:B Start: 03-16-2024 End: 03-20-2024 Outreach Lab [facility] Start: 03-12-2024 End: 03-12-2024 ambulatory Jaziel Vidal Facility:[facility] Start: 03-04-2024 ambulatory Hamida Saini Facility:[facility] Start: 03-04-2024 End: 03-07-2024 Evaluation and management of inpatient Hamida Saini Facility:[facility] Start: 03-02-2024 End: 03-06-2024 ambulatory VERO [facility]ST [facility] Facility:[facility] Start: 03-02-2024 End: 03-06-2024 Outreach Lab [facility] Start: 02-25-2024 End: 02-25-2024 Emergency department patient visit DR URSULA DONATO MD [facility] Start: 02-24-2024 End: 02-28-2024 ambulatory [facility] Facility:[facility] Start: 02-24-2024 End: 02-28-2024 Outreach Lab [facility] Start: 02-24-2024 End: 02-28-2024 ambulatory VERO MAST [facility] Facility:[facility] Start: 02-24-2024 End: 02-28-2024 Outreach Lab [facility] Start: 01-27-2024 End: 01-27-2024 ambulatory VERO MAST Facility:[facility] Start: 01-22-2024 End: 01-22-2024 ambulatory VERO MAST Facility:[facility] Start: 01-14-2024 End: 01-18-2024 ambulatory VERO MAST [facility] Facility:[facility] Start: 01-14-2024 End: 01-18-2024 Outreach Lab [facility] Start: 12-18-2023 ambulatory Papa sal MD Work Phone: Internal Medicine [place] [id number] Start: 09-16-2023 End: 09-16-2023 ambulatory [facility] Facility:B Start: 09-02-2023 End: 09-02-2023 ambulatory [facility] Facility:[facility] Start: 09-02-2023 End: 09-02-2023 Patient encounter procedure V[facility]ST [facility] Start: 08-19-2023 End: 08-19-2023 ambulatory [facility] Facility:[facility] Start: 07-30-2023 End: 07-30-2023 ambulatory JAZIEL VIDAL [facility] NURSE-C Facility:[facility] Start: 07-30-2023 End: 07-30-2023 Patient encounter procedure JAZIEL DRAKE [facility] NURSE-C [facility] Start: 07-26-2023 End: 07-26-2023 ambulatory VERO ORTEZ [facility] Facility:[facility] Start: 07-26-2023 End: 07-26-2023 Patient encounter procedure VERO ORTEZ G[facility] Start: 07-02-2023 End: 07-02-2023 Patient encounter procedure Melissa Cabrales OD Work Phone: Ophthalmology Comment on above: Dry eye syndrome of bilateral lacrimal glands (Primary Dx); Punctate keratitis of right eye; Type 2 diabetes mellitus without retinopathy (HCC); Regular astigmatism of both eyes; Presbyopia Start: 06-08-2023 End: 06-08-2023 Emergency department patient visit DR CINDY ROGERS DO Facility:B Start: 05-28-2023 ambulatory Papa sal MD Work Phone: [facility] Comment on above: Abdominal Pain Start: 05-17-2023 End: 05-17-2023 Admission to establishment Pacc [place] 1 Work Phone: [facility] Start: 05-17-2023 End: 05-17-2023 ambulatory Pac [place] 1 Work Phone: Pre Anesthesia Comment on above: Pre-operative examin ation (Primary Dx); Anemia, unspecified type; Type 2 diabetes mellitus without complication, with long-term current use of insulin (HCC); Colitis; Essential hypertension; Mixed hyperlipidemia; Hypothyroidism, unspecified type; Chronic diastolic congestive heart failure (HCC); Bilateral leg edema; Morbid obesity with BMI of 50.0-59.9, adult (HCC) Start: 05-17-2023 End: 05-17-2023 Preprocedural examination done Pac [place] 1 Work Phone: [facility] Work Phone: Start: 05-07-2023 End: 05-07-2023 Patient encounter procedure Yessy White PA-C Work Phone: General Surgery Comment on above: History of colonic p olyps (Primary Dx); Colitis; Encounter for screening colonoscopy Start: 05-03-2023 End: 05-03-2023 Patient encounter procedure Papa Douglass MD Work Phone: [facility] Comment on above: Hospital discharge f ollow-up (Primary Dx); Need for influenza vaccination; Need for vaccination; Colitis; Type 2 diabetes mellitus without complication, with long-term current use of insulin (HCC); Stage 3 chronic kidney disease, unspecified whether stage 3a or 3b CKD (HCC); Encounter for screening colonoscopy; SOB (shortness of breath); Bilateral leg edema Start: 05-01-2023 Telephone encounter Mela huerta APRN.CNP Work Phone: OB/Gynecology Comment on above: Medication Question Start: 04-19-2023 Non-patient / Non-visit Dr. Celestina Douglass Work Phone: [facility] Work Phone: Start: 04-18-2023 Non-patient / Non-visit Dr. Celestina Douglass Work Phone: [facility] Work Phone: Start: 04-18-2023 End: 04-20-2023 Evaluation and management of inpatient Dr. Papa Douglass Work Phone: [facility] Work Phone: Start: 04-17-[address] Papa Douglass Work Phone: [facility] Work Phone: Start: 04-17-2023 End: 04-17-[address] Papa Douglass Work Phone: [facility] Work Phone: Start: 03-05-2023 End: 03-05-2023 Patient encounter procedure Mari Jernigan DO Work Phone: Vascular Surgery Comment on above: Venous (peripheral) insufficiency (Primary Dx); Secondary lymphedema Start: 03-03-2023 Telephone encounter Mela huerta APRN.DRILL HAND Work Phone: OB/Gynecology Comment on above: Results Start: 03-01-2023 Telephone encounter Mela huerta APRN.DRILL HAND Work Phone: OB/Gynecology Comment on above: Results (Urine); Ord ers Start: 02-28-2023 Telephone encounter Mela huerta APRN.DRILL HAND Work Phone: OB/Gynecology Comment on above: UTI Start: 02-26-2023 Telephone encounter Papa pace MD Work Phone: [facility] Comment on above: Results Start: 02-18-2023 End: 02-18-[address] Papa Douglass Work Phone: [facility] Endocrinology Work Phone: Start: 01-20-2023 End: 01-20-2023 [facility] Start: 01-19-2023 End: 01-19-2023 Patient encounter procedure Papa Douglass MD Work Phone: [facility] Comment on above: Pain in both hands ( Primary Dx); Type 2 diabetes mellitus without complication, with long-term current use of insulin (HCC); Hypothyroidism, unspecified type; History of anemia; Mixed hyperlipidemia; Essential hypertension; Uncontrolled type 2 diabetes mellitus with hyperglycemia (HCC); GERD without esophagitis Start: 01-08-2023 Orders Only Louis rawls Work Phone: Podiatry Comment on above: Venous insufficiency (Primary Dx) Start: 01-07-2023 ambulatory Papa sal MD Work Phone: [facility] Comment on above: high blood sugars Start: 01-07-2023 End: 01-07-2023 [facility] Start: 01-03-2023 Telephone encounter Louis Wang Work Phone: Podiatry Comment on above: Results Start: 12-31-2022 Telephone encounter Papa pace MD Work Phone: [facility] [place] Comment on above: Forms (3 sets of for ms re: disability) Start: 11-29-2022 End: 11-29-2022 Patient encounter procedure Melissa Aly Keron OD Work Phone: Ophthalmology Comment on above: Dry eye syndrome of bilateral lacrimal glands (Primary Dx); Regular astigmatism of both eyes; Presbyopia; Type 2 diabetes mellitus without retinopathy (HCC) Start: 11-20-2022 Refill Papa sal MD Work Phone: [facility] Comment on above: Refill Request Start: 11-16-2022 Orders Only Louis rawls Work Phone: Podiatry Comment on above: Bilateral foot pain (Primary Dx) Start: 11-12-2022 Telephone encounter Papa pace MD Work Phone: [facility] Comment on above: Consult Start: 11-08-2022 Telephone encounter Coco vázquez G[employer] BLOWER.[employer]RILL HAND Work Phone: [facility] Comment on above: Results (Labs ) Start: 11-06-2022 Telephone encounter Kiley Randall [facility] Work Phone: [facility] Comment on above: Appointment (Primary Care reschedule) Start: 10-29-2022 Telephone encounter Kiley Randall [facility] Work Phone: [facility] Comment on above: Appointment Start: 10-25-2022 Telephone encounter Jonah Naranjo MD Work Phone: [facility] Comment on above: Patient Update Start: 10-25-2022 End: 10-25-2022 [facility] Start: 10-23-2022 Refill Coco Waters [employer] [employer] Work Phone: [facility] Comment on above: Refill Request Start: 10-10-2022 End: 10-10-2022 Emergency department patient visit [facility] Start: 10-08-2022 End: 10-08-2022 ambulatory Kiley Randall [facility] Work Phone: [facility] Comment on above: Type 2 diabetes lyssa itus without complication, with long-term current use of insulin (HCC) (Primary Dx) Start: 10-08-2022 End: 10-08-2022 Telemedicine consultation with patient Kiley Randall [facility] Work Phone: [facility] Start: 10-04-2022 Telephone encounter Papa pace MD Work Phone: Family [facility] Comment on above: FMLA Paperwork Start: 10-02-2022 Telephone encounter Feliciano wood APRN.ALEXEI Work Phone: [facility] Comment on above: Results Start: 10-01-2022 End: 10-01-2022 Patient encounter procedure Coco Waters APRN.CNP Work Phone: [facility] Comment on above: Bronchitis (Primary Dx); Acute cough; Sore throat; Iron deficiency anemia secondary to inadequate dietary iron intake; Type 2 diabetes mellitus without complication, with long-term current use of insulin (HCC) Start: 09-28-2022 Telephone encounter Coco vázquez APRN.ALEXEI Work Phone: [facility] Comment on above: iron dose Start: 09-27-2022 End: 09-27-2022 Patient encounter procedure Coco Waters APRN.CNP Work Phone: [facility] Comment on above: URI, acute (Primary Dx); Type 2 diabetes mellitus without complication, with long-term current use of insulin (HCC); Hypothyroidism, unspecified type; Iron deficiency anemia secondary to inadequate dietary iron intake; Vitamin D deficiency Start: 09-24-2022 End: 09-24-2022 Patient encounter procedure Melissa Cabrales OD Work Phone: Ophthalmology Comment on above: Dry eye syndrome of bilateral lacrimal glands (Primary Dx); Regular astigmatism of both eyes; Presbyopia; Type 2 diabetes mellitus without retinopathy (HCC) Start: 09-21-2022 End: 09-21-2022 [facility] Start: 09-21-2022 End: 09-21-2022 Patient encounter procedure Sabine Elmo LUCIO.DRILL HAND Work Phone: [facility] Comment on above: SOB (shortness of br eath) (Primary Dx); Bilateral leg edema Start: 09-17-2022 Telephone encounter Coco Conti gurpreet PRESLEYDRILL HAND Work Phone: [facility] Comment on above: Results (Labs ) Start: 09-04-2022 Telephone encounter Dionne jurado MD Work Phone: Allergy Comment on above: Patient Question Start: 09-03-2022 Telephone encounter Mela huerta APRN.DRILL HAND Work Phone: OB/Gynecology Comment on above: Results; Clinical Up date Start: 08-31-2022 Telephone encounter Mela huerta APRN.DRILL HAND Work Phone: OB/Gynecology Comment on above: Patient Update Start: 08-31-2022 End: 08-31-2022 ambulatory [facility] Work Phone: Start: 08-31-2022 End: 08-31-2022 Patient encounter procedure [facility] Start: 08-30-2022 End: 08-30-2022 Patient encounter procedure Dionne Turner MD Work Phone: Allergy Comment on above: Xlm-umie-otdwbex adv erse effect of medication, initial encounter (Primary Dx); Allergy to multiple antibiotics; Nonallergic rhinitis Start: 08-20-2022 Refill Papa sal MD Work Phone: [facility] Comment on above: Refill Request Start: 08-14-2022 Telephone encounter Mela huerta APRN.DRILL HAND Work Phone: OB/Gynecology Comment on above: Results Start: 08-12-2022 End: 08-12-2022 [facility] Start: 08-07-2022 End: 08-07-2022 Patient encounter procedure Mela Garcia [employer] [employer] Work Phone: OB/Gynecology Comment on above: Urinary tract infect ion with hematuria, site unspecified (Primary Dx) Start: 07-18-2022 Telephone encounter Papa pace MD Work Phone: [facility] Comment on above: Referral report Start: 07-18-2022 End: 07-18-2022 Patient encounter procedure Marissa Fenton G[facility]OWER[employer] HAND Work Phone: [facility] Comment on above: Bilateral leg edema (Primary Dx) Start: 07-04-2022 Telephone encounter Papa pace MD Work Phone: [address] [place] [address] Comment on above: Patient Question Start: 06-28-2022 End: 06-28-2022 Patient encounter procedure Coco Waters APRN.DRILL HAND Work Phone: [facility] Comment on above: Facial infection (Pr imary Dx); Erysipelas Start: 06-26-2022 End: 06-26-2022 Patient encounter procedure Génesis Zhang PA-C Work Phone: [facility] Comment on above: Viral URI (Primary D x); Facial infection Start: 06-21-2022 End: 06-21-2022 Patient encounter procedure Coco Waters APRN.DRILL HAND Work Phone: [facility] Comment on above: Type 2 diabetes lyssa itus without complication, with long-term current use of insulin (HCC) (Primary Dx); Hypothyroidism, unspecified type; Anxiety with depression Start: 06-17-2022 End: 06-17-2022 [facility] Start: 06-15-2022 End: 06-15-2022 Subsequent hospital visit by physician X[facility] Work Phone: Radiology Comment on above: Hand injuries, right , initial encounter [S69.91XA] Start: 06-08-2022 End: 06-08-2022 Emergency department patient visit Dr. Papa Douglass Work Phone: [facility] Start: 06-06-2022 Telephone encounter Papa pace MD Work Phone: [facility] [place] Comment on above: Patient Question; Me dication Problem Start: 03-27-2022 End: 03-27-2022 Patient encounter procedure Melissa Cabrales OD Work Phone: Ophthalmology Comment on above: Regular astigmatism of both eyes (Primary Dx); Presbyopia; Dry eye syndrome of bilateral lacrimal glands; Punctate keratitis of right eye; Type 2 diabetes mellitus without retinopathy (HCC) Start: 03-19-2022 End: 03-19-2022 Patient encounter procedure Coco Waters [employer]RI[employer] HAND Work Phone: [facility] [place] Comment on above: Type 2 diabetes lyssa itus without complication, with long-term current use of insulin (HCC) (Primary Dx); Essential hypertension; Hypothyroidism, unspecified type Start: 03-14-2022 End: 03-14-2022 Patient encounter procedure Gretchen Fox [employer]RILL HAND Work Phone: Endocrinology Comment on above: Uncontrolled type 2 diabetes mellitus with hyperglycemia (HCC) (Primary Dx); Hypothyroidism, unspecified type; Acquired hypothyroidism; Type 2 diabetes mellitus without complication, with long-term current use of insulin (HCC) Start: 02-27-2022 End: 02-27-2022 Patient encounter procedure Melissa Cabrales OD Work Phone: Ophthalmology Comment on above: Type 2 diabetes lyssa itus without retinopathy (HCC) (Primary Dx); Regular astigmatism of both eyes; Presbyopia; Dry eye syndrome of bilateral lacrimal glands; Punctate keratitis of right eye Start: 02-17-2022 Telephone encounter Evangelist Antonio MD Work Phone: [facility] Comment on above: Results (Judie+) Start: 02-16-2022 End: 02-16-2022 Patient encounter procedure Bia Jacinto GOLD BLOWER.DRILL HAND Work Phone: [facility] Comment on above: Pharyngitis, unspeci fied etiology (Primary Dx); Rash, skin; Vaginal itching Start: 02-12-2022 Refill Papa sal MD Work Phone: Family [facility] [place] Comment on above: Refill Request Start: 02-11-2022 Non-patient / Non-visit Dr. Celestina Douglass Work Phone: [facility] Start: 02-10-2022 Non-patient / Non-visit Dr. Celestina Douglass Work Phone: [facility] Start: 02-09-2022 End: 02-11-2022 Evaluation and management of inpatient [facility] Start: 02-08-2022 End: 02-08-2022 Patient encounter procedure Papa Douglass MD Work Phone: [facility] Comment on above: Uncontrolled type 2 diabetes mellitus with hyperglycemia (HCC) (Primary Dx); Hypothyroidism, unspecified type; Anxiety with depression; Mixed hyperlipidemia; Essential hypertension; Anemia, unspecified type; KODI (obstructive sleep apnea); GERD without esophagitis Start: 11-13-2021 End: 11-13-2021 Patient encounter procedure Kiley Randall [facility] Work Phone: [facility] Comment on above: Type 2 diabetes lyssa itus without complication, with long-term current use of insulin (HCC) Start: 11-09-2021 End: 11-09-2021 Patient encounter procedure Papa Douglass MD Work Phone: [facility] Comment on above: Uncontrolled type 2 diabetes mellitus with hyperglycemia (HCC) (Primary Dx) Start: 10-16-2021 End: 10-16-2021 Subsequent hospital visit by physician X[facility] Work Phone: Radiology Comment on above: Left hand pain [M79. [id number]] Start: 10-16-2021 End: 10-16-2021 Patient encounter procedure Sasha Schroeder APRN.DRILL HAND Work Phone: [facility] Comment on above: Left hand pain (Prim miriam Dx) Type 2 diabetes lyssa itus without complication, with long-term current use of insulin (HCC) (Primary Dx) Start: 10-09-2021 Refill Louis rawls Work Phone: Podiatry Comment on above: Refill Request Start: 10-09-2021 Telephone encounter Coco Conti nhof GOLD BLOWER.DRILL HAND Work Phone: Family [facility] [place] Comment on above: Results; Orders Procedures Date Procedure Procedure Detail Performing Clinician Start: 12-24-2024 CBC AND ELECTRONIC DIFF Thomas Montero G[employer]RILL HAND Work Phone: Start: 12-24-2024 Complete blood count with white cell differential, automated Thomas Winston G[employer]RI[employer] Work Phone: Start: 12-24-2024 End: 12-24-2024 Comprehensive metabolic panel Thomas Montero G[employer]RI[employer] Work Phone: Start: 11-03-2024 Urnls dip stick/tabl et reagent auto microscopy VERO MAST GEOSPATIAL SCIENTIST Work Phone: Start: 11-03-2024 Estimated creatinine clearance VERO MAST GEOSPATIAL SCIENTIST Work Phone: Start: 11-03-[address] [facility] GEOSPATIAL SCIENTIST Work Phone: Start: 09-30-2024 X-ray of foot, three or more views VERO MAST GEOSPATIAL SCIENTIST Work Phone: Start: 09-03-2024 End: 09-03-2024 Glucose measurement, blood Blas Merrill MD Work Phone: Start: 09-03-2024 INTERVENTIONAL UPPER ENDOSCOPY Blas Merrill MD Work Phone: Start: 09-03-2024 Glucose measurement, blood Blas Merrill MD Work Phone: Start: 07-30-2024 Follow-up visit Follow-up BLAS ROD Start: 07-30-[address] atten uation skull base mid-thigh Karolina Piedra GOLD BLOWER-DRILL HAND, DNP Work Phone: Start: 07-24-2024 Ultrasound elastogra phy of liver [facility]ERO MAST GEOSPATIAL SCIENTIST Work Phone: Start: 06-23-2024 UPPER EUS Karolina Piedra G[employer]RILL HAND, DNP Work Phone: Start: 06-23-2024 Glucose measurement, blood Blas Merrill MD Work Phone: Start: 06-16-2024 Radionuclide gastric emptying study VERO HASTINGS Work Phone: Start: 05-07-2024 CBC AND ELECTRONIC DIFF Karolina Shay Tadeo G[employer]RILL HAND, DNP Work Phone: Start: 05-07-2024 Complete blood count with white cell differential, automated Karolina Shay Tadeo G[employer]RILL HAND, DNP Work Phone: Start: 05-07-2024 Comprehensive metabo lic panel Karolina Shay Tadeo GOLD BLOWER-DRILL HAND, DNP Work Phone: Start: 07-02-2023 Clsr geoffrey Cabrales OD Work Phone: Start: 05-03-2023 INFLUENZA VACCINE, A GE 6 MO - 64 YR, QUADRIVALENT (AFLURIA, FLULAVAL, FLUZONE) Papa Douglass MD Work Phone: Start: 04-20-[address] Papa Douglass Work Phone: Start: 04-18-[address] Papa Douglass Work Phone: Start: 04-18-2023 Computed tomography of abdomen and pelvis with intravenous contrast Dr. Papa Douglass Work Phone: Start: 04-18-2023 Plain chest X-ray Dr. Semaj Douglass Work Phone: Start: 01-20-2023 Plain chest X-ray Start: 01-20-2023 CT of head without contrast Start: 01-20-[address] Papa Douglass Work Phone: Start: 11-12-2022 Mammography Coco vázquez GOLD BLOWER.DRILL HAND Work Phone: Start: 10-25-2022 Plain chest X-ray Start: 10-10-2022 Urine culture Start: 10-01-2022 STREP A MOLECULAR (POC) Coco Waters G[employer]OWER.DRILL HAND Work Phone: Start: 09-21-2022 Plain chest X-ray Start: 08-30-2022 ALLERGEN SKIN TEST-PENICILLIN Dionne Turner MD Work Phone: Start: 08-30-2022 INHALANT 32 ALLERGEN SKIN TEST Dionne Turner MD Work Phone: Start: 08-12-2022 Plain chest X-ray Start: 08-12-2022 Radiologic examinati on of knee Start: 08-12-2022 CT of abdomen and pe lvis without contrast Start: 08-12-2022 CT cervical spine wi thout contrast Start: 08-12-2022 CT of head without contrast Start: 08-07-2022 Urnls dip stick/tabl et rgnt auto w/o microscopy Mela Garcia G[employer] BLOWER.DRILL HAND Work Phone: Start: 06-17-2022 Plain x-ray of hand Start: 06-15-2022 Radex hand minimum 3 views Ravinder Cervantes GOLD BLOWER.DRILL HAND Work Phone: Start: 02-27-2022 Computerized ophthal shaheen imaging retina Melissa Aly Keron OD Work Phone: Start: 02-16-2022 Gluc bld gluc mntr d ev cleared fda spec home use [facility] Provider Start: 10-16-2021 Radex hand minimum 3 views Sasha Alexandre G[employer] BLOWER.DRILL HAND Work Phone: Start: 10-09-2021 Mammography Coco Conti wyof GOLD BLOWER.DRILL HAND Work Phone: Start: 01-11-2021 Adult depression scr eening assessment Ccoo Waters GOLD BLOWER.DRILL HAND Work Phone: Start: 02-24-2018 Colonoscopy Coco Conti wyof GOLD BLOWER.DRILL HAND Work Phone: Bacteria identified in Blood by Culture Dr. Papa Douglass Work Phone: Cholecystectomy [facility]T BLUM OVER GOLD BLOWER-DRILL HAND Urine culture Dr. Papa her Work Phone: Urine culture Plan of Treatment Date Care Activity Detail Author Start: 09-02-2034 Tetanus vaccination [facility]US [facility] Start: 06-06-2028 Tetanus vaccination [facility]ANUS [facility] Start: 06-06-2028 Urine microalbumin profile [facility] Start: 06-23-2025 End: 12-31-2025 Complete blood count with white cell differential, automated CBC, EDIF, PLATELET Lab Routine Neuroendocrine neoplasm of stomach Neuroendocrine cancer Expected: 06/23/2025 (Approximate), Expires: 12/31/2025 [facility] Comment on above: Expected: 06/23/2025 (Approximate), Expi res: 12/31/2025 Start: 06-23-2025 End: 12-31-2025 Comprehensive metabolic 2000 panel - Serum or Plasma COMPREHENSIVE METABOLIC PANEL Lab Routine Neuroendocrine neoplasm of stomach Neuroendocrine cancer Expected: 06/23/2025 (Approximate), Expires: 12/31/2025 [facility] Comment on above: Expected: 06/23/2025 (Approximate), Expi res: 12/31/2025 Start: 06-23-2025 End: 12-31-2025 CT Abdomen and Pelvis WO and W contrast IV CT ABDOMEN/PELVIS WITH AND WITHOUT CONTRAST Imaging Routine Neuroendocrine neoplasm of stomach Neuroendocrine cancer Expected: 06/23/2025 (Approximate), Expires: 12/31/2025 [facility] Comment on above: Expected: 06/23/2025 (Approximate), Expi res: 12/31/2025 Start: 06-23-2025 End: 12-31-2025 CT Chest W contrast IV CT CHEST WITH CONTRAST Imaging Routine Neuroendocrine neoplasm of stomach Neuroendocrine cancer Expected: 06/23/2025 (Approximate), Expires: 12/31/2025 [facility] Comment on above: Expected: 06/23/2025 (Approximate), Expi res: 12/31/2025 Start: 06-23-2025 End: 12-31-2025 Lactate dehydrogenase [Enzymatic activity/volume] in Serum or Plasma LACTATE DEHYDROGENASE Lab Routine Neuroendocrine neoplasm of stomach Neuroendocrine cancer Expected: 06/23/2025 (Approximate), Expires: 12/31/2025 [facility] Comment on above: Expected: 06/23/2025 (Approximate), Expi res: 12/31/2025 Start: 04-19-2025 End: 04-19-2025 Patient encounter procedure 04/19/2025 4:00 PM EDT Appointment [facility] [address] 2[address] [place] [address] Natalya Guerin MD [address] [place] [address] [facility] Start: 12-31-2024 End: 12-31-2024 Patient encounter procedure 12/31/2024 1:30 PM EDT Office Visit Division of Medical Oncology [address] [place] [phone] Scott Berrios MD, MPH [address] [place] [phone] Division of Medical Oncology Start: 12-24-2024 End: 12-24-2024 Patient encounter procedure 12/24/2024 2:45 PM EDT Appointment Imaging [facility] [address] 1[address] [place] [phone] Scott Berrios MD, MPH [address] [place] [phone] Imaging [facility] Start: 12-24-2024 End: 09-04-2025 CHROMOGRANIN A [facility] Comment on above: Expected: 12/24/2024, Expires: Start: 12-24-2024 End: 09-04-2025 Complete blood count with white cell differential, automated CBC, EDIF, PLATELET Lab Routine Neuroendocrine cancer Expected: 12/24/2024, Expires: 09/04/2025 [facility] Comment on above: Expected: 12/24/2024, Expires: Start: 12-24-2024 End: 09-04-2025 Comprehensive metabolic 2000 panel - Serum or Plasma COMPREHENSIVE METABOLIC PANEL Lab Routine Neuroendocrine cancer Expected: 12/24/2024, Expires: 09/04/2025 [facility] Comment on above: Expected: 12/24/2024, Expires: Start: 12-24-2024 End: 09-04-2025 Lactate dehydrogenase [Enzymatic activity/volume] in Serum or Plasma LACTATE DEHYDROGENASE Lab Routine Neuroendocrine cancer Expected: 12/24/2024, Expires: 09/04/2025 [facility] Comment on above: Expected: 12/24/2024, Expires: Start: 12-24-2024 End: 09-04-2025 METHYLMALONIC ACID METHYLMALONIC ACID Lab Routine Neuroendocrine cancer Expected: 12/24/2024, Expires: 09/04/2025 [facility] Comment on above: Expected: 12/24/2024, Expires: Start: 12-24-2024 End: 12-24-2024 Clinical Support Encounter 12/24/2024 1:30 PM EDT Clinical Support Encounter Clinical Lab [facility] [address] [place] [phone] Scott Berrios MD, MPH [address] [place] [phone] Clinical Lab [facility] 1 Start: 11-03-2024 End: 11-03-2024 [facility] Start: 10-06-2024 Walking distance 6 minutes [facility] Start: 10-05-2024 Measurement of respiratory function [facility] Start: 09-30-2024 [facility] Start: 09-03-2024 End: 09-03-2024 Patient encounter procedure [facility] Start: 08-27-2024 End: 08-27-2024 Patient encounter procedure 08/27/2024 3:00 PM EST Office Visit Division of Medical Oncology [address] [place] [phone] Scott Berrios MD, MPH [address] [phone] Division of Medical Oncology Start: 08-14-2024 End: 08-14-2024 Patient encounter procedure 08/14/2024 3:15 PM EST Appointment [facility] [address] [place] [address] Scott Berrios MD, MPH [address] [phone] [facility] Start: 08-14-2024 End: 07-30-2025 ANTI PARIETAL ANTIBODY ANTI PARIETAL ANTIBODY Lab Routine Neuroendocrine neoplasm of stomach Expected: 08/14/2024, Expires: 07/30/2025 [facility] Comment on above: Expected: 08/14/2024, Expires: Start: 08-14-2024 End: 07-30-2025 CALCITONIN CALCITONIN Lab Routine Neuroendocrine neoplasm of stomach Expected: 08/14/2024, Expires: 07/30/2025 [facility] Comment on above: Expected: 08/14/2024, Expires: Start: 08-14-2024 End: 07-31-2025 CHROMOGRANIN A [facility] Comment on above: Expected: 08/14/2024, Expires: Expected: 08/14/2024 , Expires: 07/31/2025 Start: 08-14-2024 End: 07-30-2025 Complete blood count with white cell differential, automated CBC, EDIF, PLATELET Lab Routine Neuroendocrine neoplasm of stomach Expected: 08/14/2024, Expires: 07/30/2025 [facility] Comment on above: Expected: 08/14/2024, Expires: Start: 08-14-2024 End: 07-30-2025 Comprehensive metabolic 2000 panel - Serum or Plasma COMPREHENSIVE METABOLIC PANEL Lab Routine Neuroendocrine neoplasm of stomach Expected: 08/14/2024, Expires: 07/30/2025 [facility] Comment on above: Expected: 08/14/2024, Expires: Start: 08-14-2024 End: 07-30-2025 Cyanocobalamin vitamin b-12 VITAMIN B12 Lab Routine Neuroendocrine neoplasm of stomach Expected: 08/14/2024, Expires: 07/30/2025 [facility] Comment on above: Expected: 08/14/2024, Expires: Start: 08-14-2024 End: 07-30-2025 GASTRIN - NON-STIMULATED GASTRIN - NON-STIMULATED Lab Routine Neuroendocrine neoplasm of stomach Expected: 08/14/2024, Expires: 07/30/2025 [facility] Comment on above: Expected: 08/14/2024, Expires: Start: 08-14-2024 End: 07-30-2025 INTRINSIC FACTOR ANTIBODY INTRINSIC FACTOR ANTIBODY Lab Routine Neuroendocrine neoplasm of stomach Expected: 08/14/2024, Expires: 07/30/2025 [facility] Comment on above: Expected: 08/14/2024, Expires: Start: 08-14-2024 End: 07-30-2025 Lactate dehydrogenase [Enzymatic activity/volume] in Serum or Plasma LACTATE DEHYDROGENASE Lab Routine Neuroendocrine neoplasm of stomach Expected: 08/14/2024, Expires: 07/30/2025 [facility] Comment on above: Expected: 08/14/2024, Expires: Start: 08-14-2024 End: 07-30-2025 METHYLMALONIC ACID METHYLMALONIC ACID Lab Routine Neuroendocrine neoplasm of stomach Expected: 08/14/2024, Expires: 07/30/2025 [facility] Comment on above: Expected: 08/14/2024, Expires: Start: 08-14-2024 End: 07-30-2025 PANCREATIC POLYPEPTIDE PANCREATIC POLYPEPTIDE Lab Routine Neuroendocrine neoplasm of stomach Expected: 08/14/2024, Expires: 07/30/2025 [facility] Comment on above: Expected: 08/14/2024, Expires: Start: 08-14-2024 End: 07-30-2025 PTH INTACT PTH INTACT Lab Routine Neuroendocrine neoplasm of stomach Expected: 08/14/2024, Expires: 07/30/2025 [facility] Comment on above: Expected: 08/14/2024, Expires: Start: 08-13-2024 End: 07-30-2025 ANTI PARIETAL ANTIBODY ANTI PARIETAL ANTIBODY Lab Routine Neuroendocrine neoplasm of stomach Expected: 08/13/2024, Expires: 07/30/2025 [facility] Comment on above: Expected: 08/13/2024, Expires: Start: 08-13-2024 End: 07-30-2025 CALCITONIN CALCITONIN Lab Routine Neuroendocrine neoplasm of stomach Expected: 08/13/2024, Expires: 07/30/2025 [facility] Comment on above: Expected: 08/13/2024, Expires: Start: 08-13-2024 End: 07-30-2025 CHROMOGRANIN A [facility] Comment on above: Expected: 08/13/2024, Expires: Expected: 08/13/2024 (Approximate), Expires: 07/30/2025 Start: 08-13-2024 End: 07-30-2025 Complete blood count with white cell differential, automated CBC, EDIF, PLATELET Lab Routine Neuroendocrine neoplasm of stomach Expected: 08/13/2024, Expires: 07/30/2025 [facility] Comment on above: Expected: 08/13/2024, Expires: Start: 08-13-2024 End: 07-30-2025 Comprehensive metabolic 2000 panel - Serum or Plasma COMPREHENSIVE METABOLIC PANEL Lab Routine Neuroendocrine neoplasm of stomach Expected: 08/13/2024, Expires: 07/30/2025 [facility] Comment on above: Expected: 08/13/2024, Expires: Start: 08-13-2024 End: 07-30-2025 Cyanocobalamin vitamin b-12 VITAMIN B12 Lab Routine Neuroendocrine neoplasm of stomach Expected: 08/13/2024, Expires: 07/30/2025 [facility] Comment on above: Expected: 08/13/2024, Expires: Start: 08-13-2024 End: 07-30-2025 GASTRIN - NON-STIMULATED GASTRIN - NON-STIMULATED Lab Routine Neuroendocrine neoplasm of stomach Expected: 08/13/2024, Expires: 07/30/2025 [facility] Comment on above: Expected: 08/13/2024, Expires: Start: 08-13-2024 End: 07-30-2025 INTRINSIC FACTOR ANTIBODY INTRINSIC FACTOR ANTIBODY Lab Routine Neuroendocrine neoplasm of stomach Expected: 08/13/2024, Expires: 07/30/2025 [facility] Comment on above: Expected: 08/13/2024, Expires: Start: 08-13-2024 End: 07-30-2025 Lactate dehydrogenase [Enzymatic activity/volume] in Serum or Plasma LACTATE DEHYDROGENASE Lab Routine Neuroendocrine neoplasm of stomach Expected: 08/13/2024, Expires: 07/30/2025 [facility] Comment on above: Expected: 08/13/2024, Expires: Start: 08-13-2024 End: 07-30-2025 METHYLMALONIC ACID METHYLMALONIC ACID Lab Routine Neuroendocrine neoplasm of stomach Expected: 08/13/2024, Expires: 07/30/2025 [facility] Comment on above: Expected: 08/13/2024, Expires: Start: 08-13-2024 End: 07-30-2025 PANCREATIC POLYPEPTIDE PANCREATIC POLYPEPTIDE Lab Routine Neuroendocrine neoplasm of stomach Expected: 08/13/2024, Expires: 07/30/2025 [facility] Comment on above: Expected: 08/13/2024, Expires: Start: 08-13-2024 End: 07-30-2025 PTH INTACT PTH INTACT Lab Routine Neuroendocrine neoplasm of stomach Expected: 08/13/2024, Expires: 07/30/2025 [facility] Comment on above: Expected: 08/13/2024, Expires: Start: 08-12-2024 Subsequent hospital visit by physician 08/12/2024 9:00 PM EST Hospital Encounter Imaging [facility] [address] [place] [address] Scott Berrios MD, MPH [address] [place] [phone] Imaging [facility] Start: 07-30-2024 End: 07-30-2025 CT Abdomen and Pelvis WO and W contrast IV CT ABDOMEN/PELVIS WITH AND WITHOUT CONTRAST Imaging Routine Neuroendocrine neoplasm of stomach Neuroendocrine cancer Expected: 07/30/2024, Expires: 07/30/2025 [facility] Comment on above: Expected: 07/30/2024, Expires: Start: 07-29-2024 Colonoscopy w/biopsy single/multiple COLONOSCOPY AND BIOPSY [facility] Start: 07-29-2024 Patient discharge [facility] Start: 07-09-2024 End: 07-09-2024 Telemedicine consultation with patient 07/09/2024 12:45 PM EST Telemedicine Division of Surgical Oncology [address] [place] [address] Blas Rod MD [address] [place] [address] Division of Surgical Oncology Start: 07-02-2024 End: 07-02-2024 Patient encounter procedure 07/02/2024 9:30 AM EST Appointment [facility] [address] [place] [phone] Karolina Piedra, GOLD BLOWER-DRILL HAND, DNP [address] [place] [address] [facility] Start: 07-02-2024 Subsequent hospital visit by physician 07/02/2024 9:30 AM EST Hospital Encounter [facility] [address] [place] [address] Karolina Piedra APRN-DRILL HAND, DNP [address] [place] [address] [facility] Start: 06-23-2024 End: 06-23-2025 INTERVENTIONAL UPPER ENDOSCOPY INTERVENTIONAL UPPER ENDOSCOPY GI/Bronch Routine Neuroendocrine tumor Expected: 06/23/2024, Expires: 06/23/2025 [facility] Comment on above: Expected: 06/23/2024, Expires: Start: 06-02-2024 End: 06-02-2024 Patient encounter procedure 06/02/2024 9:40 AM EST Office Visit [facility] [address] [facility] [place] [address] Darcie Logan PA-C [address] [facility] [place] [address] Colonoscopy screen consult [facility] Comment on above: Colonoscopy screen consult Start: 05-28-2024 BP Controlled (<130/80) BP Controlled (<130/80) [facility] Start: 05-17-2024 BP Controlled (<130/80) BP Controlled (<130/80) [facility] Start: 05-07-2024 BP Controlled (<130/80) BP Controlled (<130/80) [facility] Start: 05-07-2024 End: 05-07-2025 PT Skull base to mid-thigh NUC PET NEUROENDOCRINE Imaging Routine Neuroendocrine tumor Expected: 05/07/2024, Expires: 05/07/2025 [facility] Comment on above: Expected: 05/07/2024, Expires: Start: 05-07-2024 End: 05-07-2025 UPPER EUS UPPER EUS GI/Bronch Routine Neuroendocrine tumor Expected: 05/07/2024, Expires: 05/07/2025 [facility] Comment on above: Expected: 05/07/2024, Expires: Start: 05-05-2024 End: 05-05-2025 CHROMOGRANIN A CHROMOGRANIN A Lab Routine Neuroendocrine tumor Expected: 05/05/2024, Expires: 05/05/2025 [facility] Comment on above: Expected: 05/05/2024, Expires: Start: 05-05-2024 End: 05-05-2025 GASTRIN - NON-STIMULATED GASTRIN - NON-STIMULATED Lab Routine Neuroendocrine tumor Expected: 05/05/2024, Expires: 05/05/2025 [facility] Comment on above: Expected: 05/05/2024, Expires: Start: 05-03-2024 3 comp foot exam completed Diabetic Foot Exam [facility] Start: 05-03-2024 Annual PCP Team Chronic Disease Visit Annual PCP Team Chronic Disease Visit [facility] Start: 05-03-2024 BP Controlled (<130/80) BP Controlled (<130/80) [facility] Start: 05-03-2024 Diabetic foot examination Diabetic Foot Exam [facility] Start: 04-17-2024 Hepatitis B surface antibody level LDL Cholesterol [facility] Start: 04-16-2024 BP Controlled (<130/80) BP Controlled (<130/80) [facility] Start: 03-22-2024 COVID-19 VACCINE ( season) COVID-19 VACCINE () [facility] Start: 03-22-2024 COVID-19 VACCINE ( season) COVID-19 VACCINE ( season) [facility] Start: 03-22-2024 Covid-19 Vaccine ( season) Covid-19 Vaccine ( season) [facility] Start: 03-22-2024 Influenza vaccination Influenza Vaccine (#1) [facility] Start: 03-05-2024 BP CONTROLLED (<130/80) BP CONTROLLED (<130/80) [facility] Start: 03-02-2024 End: 03-02-2024 Patient encounter procedure 03/02/2024 1:45 PM EDT Office Visit [facility] [address] [place] [address] Melissa Cabrales, OD [address] [place] [address] diabetic eye exam with dry eye follow-up . Ophthalmology Comment on above: diabetic eye exam with dry eye follow-up . Start: 03-01-2024 Glaucoma screening Dilated Retinal Exam [facility] Start: 03-01-2024 Hepatitis C antibody, confirmatory test DILATED RETINAL EXAM [facility] Start: 02-16-2024 Hepatitis B surface antibody level LDL CHOLESTEROL [facility] Start: 01-20-2024 ANNUAL PCP TEAM CHRONIC DISEASE VISIT ANNUAL PCP TEAM CHRONIC DISEASE VISIT [facility] Start: 01-20-2024 BP CONTROLLED (<130/80) BP CONTROLLED (<130/80) [facility] Start: 11-13-2023 Mammography [facility] Start: 11-13-2023 Screening for malignant neoplasm of breast [facility] Start: 11-07-2023 ANNUAL PCP TEAM CHRONIC DISEASE VISIT ANNUAL PCP TEAM CHRONIC DISEASE VISIT [facility] Start: 11-07-2023 BP CONTROLLED (<130/80) BP CONTROLLED (<130/80) [facility] Start: 10-02-2023 ANNUAL PCP TEAM CHRONIC DISEASE VISIT ANNUAL PCP TEAM CHRONIC DISEASE VISIT [facility] Start: 10-02-2023 BP CONTROLLED (<130/80) BP CONTROLLED (<130/80) [facility] Start: 09-28-2023 ANNUAL PCP TEAM CHRONIC DISEASE VISIT ANNUAL PCP TEAM CHRONIC DISEASE VISIT [facility] Start: 09-28-2023 BP CONTROLLED (<130/80) BP CONTROLLED (<130/80) [facility] Start: 09-22-2023 BP CONTROLLED (<130/80) BP CONTROLLED (<130/80) [facility] Start: 08-31-2023 Hepatitis B screening URINE ALBUMIN:CREATININE RATIO [facility] Start: 08-31-2023 Hepatitis B surface antibody level LDL CHOLESTEROL [facility] Start: 08-30-2023 BP CONTROLLED (<130/80) BP CONTROLLED (<130/80) [facility] Start: 08-07-2023 BP CONTROLLED (<130/80) BP CONTROLLED (<130/80) [place] [facility] Start: 07-22-2023 Behavioral Health Screening Behavioral Health Screening [facility] Start: 07-18-2023 ANNUAL PCP TEAM CHRONIC DISEASE VISIT ANNUAL PCP TEAM CHRONIC DISEASE VISIT [facility] Start: 06-28-2023 ANNUAL PCP TEAM CHRONIC DISEASE VISIT ANNUAL PCP TEAM CHRONIC DISEASE VISIT [facility] Start: 06-28-2023 BP CONTROLLED (<130/80) BP CONTROLLED (<130/80) [facility] Start: 06-26-2023 BP CONTROLLED (<130/80) BP CONTROLLED (<130/80) [facility] Start: 06-21-2023 ANNUAL PCP TEAM CHRONIC DISEASE VISIT ANNUAL PCP TEAM CHRONIC DISEASE VISIT [facility] Start: 06-21-2023 BP CONTROLLED (<130/80) BP CONTROLLED (<130/80) [facility] Start: 06-03-2023 End: 08-03-2023 Basic metabolic 2000 panel - Serum or Plasma BASIC METABOLIC PNL Lab Routine Type 2 diabetes mellitus without complication, with long-term current use of insulin (HCC) Stage 3 chronic kidney disease, unspecified whether stage 3a or 3b CKD (HCC) Expected: 06/03/2023 (Approximate), Expires: 08/03/2023 [facility] Work Phone: Comment on above: Expected: 06/03/2023 (Approximate), Expi res: 08/03/2023 Start: 05-21-2023 Hemoglobin A1c measurement HbA1C [facility] Start: 05-21-2023 Hemoglobin A1c/Hemoglobin.total in Blood HBA1C [facility] Start: 04-20-2023 Patient discharge [facility] Start: 04-19-2023 [facility] Start: 04-19-2023 [facility] Start: 04-18-2023 Following clinical pathway protocol [facility] Start: 04-18-2023 Application of elastic bandage [facility] Start: 04-18-2023 Assessment of risk of venous thromboembolism [facility] Start: 04-18-2023 Care regimes management [facility] Start: 04-18-2023 Catheterization of vein [facility] Start: 04-18-2023 Elevation of affected extremity [facility] Start: 04-18-2023 Incentive spirometry [facility] Start: 04-18-2023 Inhalation therapy procedure [facility] Start: 04-18-2023 Insertion of catheter into peripheral vein [facility] Start: 04-18-2023 Measuring intake and output [facility] Start: 04-18-2023 Notification of physician [facility] Start: 04-18-2023 Oxygen therapy [facility] Start: 04-18-2023 Patient education [facility] Start: 04-18-2023 Patient referral to dietitian [facility] Start: 04-18-2023 Providing care according to standard [facility] Start: 04-18-2023 Provision of activity privileges [facility] Start: 04-18-2023 Referral to service [facility] Start: 04-18-2023 [facility] Start: 04-18-2023 Admission procedure [facility] Start: 03-22-2023 Covid-19 Vaccine () Covid-19 Vaccine () [facility] Start: 03-22-2023 Influenza vaccination [facility] Start: 03-19-2023 ANNUAL PCP TEAM CHRONIC DISEASE VISIT ANNUAL PCP TEAM CHRONIC DISEASE VISIT [facility] Start: 03-19-2023 BP CONTROLLED (<130/80) BP CONTROLLED (<130/80) [facility] Start: 03-14-2023 BP CONTROLLED (<130/80) BP CONTROLLED (<130/80) [facility] Start: 03-12-2023 Hepatitis B surface antibody level LDL CHOLESTEROL [facility] Start: 02-28-2023 End: 04-30-2023 Bacteria identified in Urine by Culture [facility] Work Phone: Comment on above: Expected: 02/28/2023, Expires: 3 Start: 02-28-2023 End: 04-30-2023 Urinalysis complete panel - Urine [facility] Work Phone: Comment on above: Expected: 02/28/2023, Expires: 3 Start: 02-27-2023 Hepatitis C antibody, confirmatory test DILATED RETINAL EXAM [facility] Start: 02-24-2023 Colonoscopy COLONOSCOPY [facility] Start: 02-24-2023 COLORECTAL CANCER SCREENING COLORECTAL CANCER SCREENING [facility] Start: 02-24-2023 Screening for malignant neoplasm of colon [facility] Start: 02-19-2023 End: 04-21-2023 Comprehensive metabolic 2000 panel - Serum or Plasma COMP METABOLIC PANEL Lab Routine Mixed hyperlipidemia Uncontrolled type 2 diabetes mellitus with hyperglycemia (HCC) Expected: 02/19/2023 (Approximate), Expires: 04/21/2023 [facility] Work Phone: Comment on above: Expected: 02/19/2023 (Approximate), Expi res: 04/21/2023 Start: 02-19-2023 End: 04-21-2023 Hemoglobin A1c in Blood HGB A1C Lab Routine Uncontrolled type 2 diabetes mellitus with hyperglycemia (HCC) Expected: 02/19/2023 (Approximate), Expires: 04/21/2023 [facility] Work Phone: Comment on above: Expected: 02/19/2023 (Approximate), Expi res: 04/21/2023 Start: 02-19-2023 End: 04-21-2023 Lipid 1996 panel - Serum or Plasma LIPID PANEL BASIC Lab Routine Mixed hyperlipidemia Uncontrolled type 2 diabetes mellitus with hyperglycemia (HCC) Expected: 02/19/2023 (Approximate), Expires: 04/21/2023 [facility] Work Phone: Comment on above: Expected: 02/19/2023 (Approximate), Expi res: 04/21/2023 Start: 02-16-2023 BP CONTROLLED (<130/80) BP CONTROLLED (<130/80) [facility] Start: 02-08-2023 ANNUAL PCP TEAM CHRONIC DISEASE VISIT ANNUAL PCP TEAM CHRONIC DISEASE VISIT [facility] Start: 02-08-2023 BP CONTROLLED (<130/80) BP CONTROLLED (<130/80) [facility] Start: 01-20-2023 [facility] Start: 01-20-2023 Bacteria identified in Urine by Culture Urine Culture [facility] Start: 12-25-2022 Hemoglobin A1c/Hemoglobin.total in Blood HBA1C [facility] Start: 11-22-2022 HPV TESTING HPV TESTING [facility] Start: 11-22-2022 PAP TESTING PAP TESTING [facility] Start: 11-22-2022 Screening for malignant neoplasm of cervix [facility] Start: 11-09-2022 ANNUAL PCP TEAM CHRONIC DISEASE VISIT ANNUAL PCP TEAM CHRONIC DISEASE VISIT [facility] Start: 10-28-2022 End: 12-28-2022 25-hydroxyvitamin D3 [Mass/volume] in Serum or Plasma VITAMIN D 25 HYDROXY Lab Routine Vitamin D deficiency Expected: 10/28/2022, Expires: 12/28/2022 [facility] Work Phone: Comment on above: Expected: 10/28/2022, Expires: Start: 10-28-2022 End: 12-28-2022 CBC W Auto Differential panel - Blood CBC + DIFF Lab Routine Iron deficiency anemia secondary to inadequate dietary iron intake Expected: 10/28/2022, Expires: 12/28/2022 [facility] Work Phone: Comment on above: Expected: 10/28/2022, Expires: Start: 10-28-2022 End: 12-28-2022 Ferritin [Mass/volume] in Serum or Plasma FERRITIN BLD Lab Routine Iron deficiency anemia secondary to inadequate dietary iron intake Expected: 10/28/2022, Expires: 12/28/2022 [facility] Work Phone: Comment on above: Expected: 10/28/2022, Expires: Start: 10-28-2022 End: 12-28-2022 Iron and Iron binding capacity panel - Serum or Plasma IRON + TIBC Lab Routine Iron deficiency anemia secondary to inadequate dietary iron intake Expected: 10/28/2022, Expires: 12/28/2022 [facility] Work Phone: Comment on above: Expected: 10/28/2022, Expires: 3 Start: 10-28-2022 End: 12-28-2022 Thyrotropin [Units/volume] in Serum or Plasma TSH BLD Lab Routine Hypothyroidism, unspecified type Expected: 10/28/2022, Expires: 12/28/2022 [facility] [facility] Work Phone: Comment on above: Expected: 10/28/2022, Expires: 3 Start: 10-28-2022 End: 12-28-2022 Thyroxine (T4) free [Mass/volume] in Serum or Plasma T4 FREE/FREE THYROX Lab Routine Hypothyroidism, unspecified type Expected: 10/28/2022, Expires: 12/28/2022 [facility] Work Phone: Comment on above: Expected: 10/28/2022, Expires: 3 Start: 10-25-2022 [facility] Start: 10-16-2022 BP CONTROLLED (<130/80) BP CONTROLLED (<130/80) [facility] Start: 10-10-2022 [facility] Start: 10-09-2022 Mammography MAMMOGRAM [facility] Start: 10-06-2022 ANNUAL PCP TEAM CHRONIC DISEASE VISIT ANNUAL PCP TEAM CHRONIC DISEASE VISIT [facility] Start: 10-06-2022 Hepatitis B surface antibody level LDL CHOLESTEROL [facility] Start: 09-21-2022 [facility] Start: 09-19-2022 End: 11-19-2022 Comprehensive metabolic 2000 panel - Serum or Plasma COMP METABOLIC PANEL Lab Routine Type 2 diabetes mellitus without complication, with long-term current use of insulin ([facility]) Expected: 09/19/2022, Expires: 11/19/2022 [facility] Work Phone: Comment on above: Expected: 09/19/2022, Expires: 3 Start: 09-19-2022 End: 11-19-2022 Hemoglobin A1c in Blood HGB A1C Lab Routine Type 2 diabetes mellitus without complication, with long-term current use of insulin ([facility]) Expected: 09/19/2022, Expires: 11/19/2022 [facility] Work Phone: Comment on above: Expected: 09/19/2022, Expires: 3 Start: 09-15-2022 Hemoglobin A1c/Hemoglobin.total in Blood HBA1C [facility] Start: 08-31-2022 End: 10-31-2022 Bacteria identified in Urine by Culture [facility] Work Phone: Comment on above: Expected: 08/31/2022, Expires: 3 Start: 08-31-2022 Iv infusion therapy/prophylaxis /dx 1st to 1 hr THER/PROPH/DIAG IV INF INIT [facility] Start: 08-22-2022 End: 10-22-2022 ALBUMIN/CREAT RATIO RND UR ALBUMIN/CREAT RATIO RND UR Lab Routine Uncontrolled type 2 diabetes mellitus with hyperglycemia (HCC) Expected: 08/22/2022, Expires: 10/22/2022 [facility] Work Phone: Comment on above: Expected: 08/22/2022, Expires: Start: 08-22-2022 End: 10-22-2022 Comprehensive metabolic 2000 panel - Serum or Plasma COMP METABOLIC PANEL Lab Routine Uncontrolled type 2 diabetes mellitus with hyperglycemia (HCC) Expected: 08/22/2022, Expires: 10/22/2022 [facility] Work Phone: Comment on above: Expected: 08/22/2022, Expires: Start: 08-22-2022 End: 10-22-2022 Hemoglobin A1c in Blood HGB A1C Lab Routine Uncontrolled type 2 diabetes mellitus with hyperglycemia (HCC) Expected: 08/22/2022, Expires: 10/22/2022 [facility] Work Phone: Comment on above: Expected: 08/22/2022, Expires: Start: 08-22-2022 End: 10-22-2022 LIPID PANEL, NONFASTING LIPID PANEL, NONFASTING Lab Routine Uncontrolled type 2 diabetes mellitus with hyperglycemia (HCC) Expected: 08/22/2022, Expires: 10/22/2022 [facility] Work Phone: Comment on above: Expected: 08/22/2022, Expires: 3 Start: 07-22-2022 DEPRESSION ASSESSMENT DEPRESSION ASSESSMENT [facility] Start: 07-22-2022 End: 09-21-2022 Thyrotropin [Units/volume] in Serum or Plasma TSH BLD Lab Routine Hypothyroidism, unspecified type Expected: 07/22/2022, Expires: 09/21/2022 [facility] Work Phone: Comment on above: Expected: 07/22/2022, Expires: 3 Start: 07-22-2022 End: 09-21-2022 Thyroxine (T4) free [Mass/volume] in Serum or Plasma T4 FREE/FREE THYROX Lab Routine Hypothyroidism, unspecified type Expected: 07/22/2022, Expires: 09/21/2022 [facility] Work Phone: Comment on above: Expected: 07/22/2022, Expires: 3 Start: 06-26-2022 End: 07-10-2022 Influenza virus A and B RNA and SARS-CoV-2 (COVID-19) N gene panel - Respiratory specimen by [place]O with probe detection [facility] Work Phone: Comment on above: Expected: 06/26/2022, Expires: 2 Start: 06-12-2022 Hemoglobin A1c/Hemoglobin.total in Blood HBA1C [facility] Start: 04-25-2022 End: 06-25-2022 Hemoglobin A1c in Blood HGB A1C Lab Routine Uncontrolled type 2 diabetes mellitus with hyperglycemia (HCC) Hypothyroidism, unspecified type Expected: 04/25/2022, Expires: 06/25/2022 [facility] Work Phone: Comment on above: Expected: 04/25/2022, Expires: 2 Start: 04-25-2022 End: 06-25-2022 Thyrotropin [Units/volume] in Serum or Plasma TSH BLD Lab Routine Uncontrolled type 2 diabetes mellitus with hyperglycemia (HCC) Hypothyroidism, unspecified type Expected: 04/25/2022, Expires: 06/25/2022 [facility] Work Phone: Comment on above: Expected: 04/25/2022, Expires: 2 Start: 04-25-2022 End: 06-25-2022 Thyroxine (T4) free [Mass/volume] in Serum or Plasma T4 FREE/FREE THYROX Lab Routine Uncontrolled type 2 diabetes mellitus with hyperglycemia (HCC) Hypothyroidism, unspecified type Expected: 04/25/2022, Expires: 06/25/2022 [facility] Work Phone: Comment on above: Expected: 04/25/2022, Expires: 2 Start: 04-18-2022 COVID-19 VACCINE (5 - Booster for Pfizer series) COVID-19 VACCINE (5 - Booster for Pfizer series) [facility] Start: 04-18-2022 COVID-19 VACCINE (5 - Pfizer series) COVID-19 VACCINE (5 - Pfizer series) [facility] Start: 04-06-2022 FECAL OCCULT BLOOD FECAL OCCULT BLOOD [facility] Start: 04-06-2022 Screening for malignant neoplasm of colon Fecal Occult Blood [facility] Start: 03-22-2022 Influenza vaccination [facility] Start: 03-11-2022 End: 05-11-2022 CBC W Auto Differential panel - Blood CBC + DIFF Lab Routine Anemia, unspecified type Expected: 03/11/2022 (Approximate), Expires: 05/11/2022 [facility] Work Phone: Comment on above: Expected: 03/11/2022 (Approximate), Expi res: 05/11/2022 Start: 03-11-2022 End: 05-11-2022 Comprehensive metabolic 2000 panel - Serum or Plasma COMP METABOLIC PANEL Lab Routine Uncontrolled type 2 diabetes mellitus with hyperglycemia (HCC) Mixed hyperlipidemia Essential hypertension Expected: 03/11/2022 (Approximate), Expires: 05/11/2022 [facility] Work Phone: Comment on above: Expected: 03/11/2022 (Approximate), Expi res: 05/11/2022 Start: 03-11-2022 End: 05-11-2022 Hemoglobin A1c in Blood HGB A1C Lab Routine Uncontrolled type 2 diabetes mellitus with hyperglycemia (HCC) Expected: 03/11/2022 (Approximate), Expires: 05/11/2022 [facility] Work Phone: Comment on above: Expected: 03/11/2022 (Approximate), Expi res: 05/11/2022 Start: 03-11-2022 End: 05-11-2022 Lipid 1996 panel - Serum or Plasma LIPID PANEL BASIC Lab Routine Mixed hyperlipidemia Essential hypertension Expected: 03/11/2022 (Approximate), Expires: 05/11/2022 [facility] Work Phone: Comment on above: Expected: 03/11/2022 (Approximate), Expi res: 05/11/2022 Start: 03-11-2022 End: 05-11-2022 Thyrotropin [Units/volume] in Serum or Plasma TSH BLD Lab Routine Hypothyroidism, unspecified type Expected: 03/11/2022 (Approximate), Expires: 05/11/2022 [facility] Work Phone: Comment on above: Expected: 03/11/2022 (Approximate), Expi res: 05/11/2022 Start: 02-18-2022 Blood chemistry [facility] Work Phone: Start: 02-17-2022 Blood chemistry [facility] Work Phone: Start: 02-16-2022 End: 04-18-2022 Fungus identified in Unspecified specimen by Culture [facility] Work Phone: Comment on above: Expected: 02/16/2022, Expires: Start: 02-16-2022 Blood chemistry [facility] Work Phone: Start: 02-15-2022 Blood chemistry [facility] Work Phone: Start: 02-14-2022 Blood chemistry [facility] Work Phone: Start: 02-13-2022 Blood chemistry [facility] Work Phone: Start: 02-12-2022 Blood chemistry [facility] Work Phone: Start: 02-11-2022 Patient discharge [facility] Work Phone: Start: 02-10-2022 Inhalation therapy procedure [facility] Work Phone: Start: 02-09-2022 Assessment of risk of venous thromboembolism [facility] Work Phone: Start: 02-09-2022 Care regimes management [facility] Work Phone: Start: 02-09-2022 Insertion of catheter into peripheral vein [facility] Work Phone: Start: 02-09-2022 Measuring intake and output [facility] Work Phone: Start: 02-09-2022 Notification of physician [facility] Work Phone: Start: 02-09-2022 Oxygen therapy [facility] Work Phone: Start: 02-09-2022 Providing care according to standard [facility] Work Phone: Start: 02-09-2022 Provision of activity privileges [facility] Work Phone: Start: 02-09-2022 Referral to service [facility] Work Phone: Start: 02-09-2022 [facility] Work Phone: Start: 02-09-2022 Following clinical pathway protocol [facility] Work Phone: Start: 02-09-2022 Verification routine [facility] Work Phone: Start: 02-09-2022 Admission procedure [facility] Work Phone: Start: 02-09-2022 Blood culture [facility] Work Phone: Start: 02-09-2022 [facility] Work Phone: Start: 02-09-2022 Hepatitis C antibody, confirmatory test DILATED RETINAL EXAM [facility] Start: 02-09-2022 Patient referral to dietitian [facility] Work Phone: Start: 02-08-2022 Hemoglobin A1c/Hemoglobin.total in Blood HBA1C [facility] Start: 01-18-2022 Influenza vaccination INFLUENZA (#1) [facility] Comment on above: Postponed from 03/22/2021 (Declined at t his time) Start: 01-11-2022 3 comp foot exam completed DIABETIC FOOT EXAM [facility] Start: 01-11-2022 Adult depression screening assessment DEPRESSION SCREENING [facility] Start: 01-11-2022 HEPATITIS C SCREENING HEPATITIS C SCREENING [facility] Comment on above: Postponed from 1984 (Declined at t his time) Start: 01-11-2022 HIV SCREENING HIV SCREENING [facility] Comment on above: Postponed from 1984 (Declined at t his time) Start: 01-06-2022 Hemoglobin A1c/Hemoglobin.total in Blood HBA1C [facility] Start: 07-22-2021 DEPRESSION ASSESSMENT DEPRESSION ASSESSMENT [facility] Start: 07-08-2021 Hepatitis B screening URINE ALBUMIN:CREATININE RATIO [facility] Start: 06-21-2021 COVID-19 VACCINE (4 - Booster for Pfizer series) COVID-19 VACCINE (4 - Booster for Pfizer series) [facility] Start: 01-08-2021 COVID-19 VACCINE (3 - Booster for Pfizer series) COVID-19 VACCINE (3 - Booster for Pfizer series) [facility] Start: 02-24-2019 Screening for malignant neoplasm of colon COLORECTAL CANCER SCREENING DISCUSSION [facility] Start: 2016 SHINGRIX VACCINE (1 of 2) SHINGRIX VACCINE (1 of 2) [facility] Start: 2016 Zoster vaccine hzv live for subcutaneous use ZOSTER (SHINGLES) VACCINE (1 of 2) [facility] Start: 02-04-2013 PNEUMOCOCCAL (2 - PCV) PNEUMOCOCCAL (2 - PCV) [facility] Start: 02-04-2013 Pneumococcal vaccination Pneumococcal Vaccine (2 - PCV) [facility] Start: 12-04-2011 COLOGUARD (FIT-DNA) COLOGUARD (FIT-DNA) [facility] Start: 12-04-[address] COLONOGRAPHY [facility] Start: 12-04-2011 Screening for malignant neoplasm of colon [facility] Start: 12-04-2011 SIGMOIDOSCOPY SIGMOIDOSCOPY [facility] Start: 2006 Lipid panel LIPID SCREENING [facility] Start: 12-04-1987 Screening for malignant neoplasm of cervix CERVICAL CANCER SCREENING DISCUSSION [facility] Start: 1985 HEPATITIS B (1 of 3 - Risk 3-dose series) HEPATITIS B (1 of 3 - Risk 3-dose series) [facility] Start: 1985 Hepatitis B vaccination HEP B VACCINE (1 of 3 - 19+ 3-dose series) [facility] Start: 1985 Hepatitis B Vaccine (1 of 3 - 19+ 3-dose series) Hepatitis B Vaccine (1 of 3 - 19+ 3-dose series) [facility] Start: 1984 Anxiety Screening Anxiety Screening [facility] Start: 1984 BP CONTROLLED (<130/80) [facility] Start: 1984 Depression Screening Depression Screening [facility] Start: 1984 HEPATITIS C SCREENING HEPATITIS C SCREENING [facility] Start: 1984 Hepatitis C screening Hepatitis C Screening [facility] Start: 1984 HIV SCREENING HIV SCREENING [facility] Start: 1984 HIV screening HIV Screening [facility] Start: 1981 HIV screening HIV SCREENING DISCUSSION [facility] Start: 1966 HEPATITIS B (1 of 3 - 3-dose series) HEPATITIS B (1 of 3 - 3-dose series) [facility] Start: 1966 Hepatitis B Vaccine (1 of 3 - 3-dose series) Hepatitis B Vaccine (1 of 3 - 3-dose series) [facility] Start: 1966 Hepatitis C screening HEPATITIS C VIRUS SCREENING [facility] Start: 1966 Thyroid stimulating hormone measurement TSH [facility] Bacteria identified in Blood by Culture Blood Culture [facility] Work Phone: Bacteria identified in Urine by Culture Urine Culture [facility] Bacteria identified in Urine by Culture URINE CULTURE Microbiology Routine Urinary tract infection with hematuria, site unspecified Ordered: 08/07/2022 [facility] Work Phone: Comment on above: Ordered: 08/07/2022 Blood culture [facility] Work Phone: JUDIE / TRICHOMONA S AMPLIFICATION JUDIE / TRICHOMONAS AMPLIFICATION Lab Routine Vaginal itching Ordered: 02/16/2022 [facility] Work Phone: Comment on above: Ordered: 02/16/2022 CBC W Auto Different ial panel - Blood [facility] CHROMOGRANIN A CHROMOGRANIN A L ab Routine Neuroendocrine tumor 05/07/2024 7:12 AM EDT [facility] Comprehensive metabo lic 2000 panel - Serum or Plasma [facility] End: 12-24-2024 CT Abdomen and Pelvis WO and W contrast IV [facility] Comment on above: 1 Occurrences starting 12/24/2024 until 12/24/2024 End: 12-17-2025 DBT Breast - bilateral screening AMY SCREENING W JORGE ALBERTO Radiology Routine Encounter for screening mammogram for breast cancer 1 Occurrences starting 11/17/2024 until 12/17/2025 [facility] Work Phone: Comment on above: 1 Occurrences starting 11/17/2024 until 12/17/2025 GASTRIN - NON-STIMULATED GASTRIN - NON-STIMULATED Lab Routine Neuroendocrine tumor 05/07/2024 7:12 AM EDT [facility] GASTRIN - NON-STIMULATED GASTRIN - NON-STIMULATED Lab Routine Neuroendocrine neoplasm of stomach 12/24/2024 1:15 PM EDT [facility] Glucose [Mass/volume ] in Serum or Plasma [facility] Work Phone: Glucose [Mass/volume ] in Serum or Plasma GLUCOSE, BLOOD (POC) Lab Routine Rash, skin Ordered: 02/16/2022 [facility] Work Phone: Comment on above: Ordered: 02/16/2022 Influenza virus A an d B RNA and SARS-CoV-2 (COVID-19) N gene panel - Respiratory specimen by [place] with probe detection COVID WITH FLUA+B, ROUTINE Microbiology Routine Acute cough 10/01/2022 9:26 AM EDT [facility] Work Phone: End: 01-16-2025 MG Breast Screening AMY SCREENING Radiology Routine Encounter for screening mammogram for breast cancer 1 Occurrences starting 12/18/2023 until 01/16/2025 [facility] Work Phone: Comment on above: 1 Occurrences starting 12/18/2023 until 01/16/2025 PANCREATIC POLYPEPTIDE PANCREATI C POLYPEPTIDE Lab Routine Neuroendocrine neoplasm of stomach 12/24/2024 1:15 PM EDT [facility] Work Phone: Patient Education [facility] Work Phone: Patient referral [facility] Work Phone: Percutaneous tests w/allergenic extracts ALLRGY SKN TST (EXTRACTS) IMMEDI Procedures Routine Nonallergic rhinitis Ordered: 08/30/2022 [facility] Work Phone: Comment on above: Ordered: 08/30/2022 Procedure [facility] Prothrombin time [facility] SURG PATH REQUEST [facility] Comment on above: Release Upon Ordering for 1 Occurrences starting 06/23/2024, 1 completed SURG PATH REQUEST [facility] Comment on above: Release Upon Ordering for 1 Occurrences starting 09/03/2024, 1 completed Urine culture Urine Culture [facility] Work Phone: Urine culture [facility] Vitamin D, 25-hydrox y measurement [facility] End: 12-16-2023 XR FOOT GENERAL 3V AP/LAT/OBL BILATERAL XR FOOT GENERAL 3V AP/LAT/OBL BILATERAL Radiology Routine Bilateral foot pain 1 Occurrences starting 11/16/2022 until 12/16/2023 [facility] Work Phone: Comment on above: 1 Occurrences starting 11/16/2022 until 12/16/2023 [facility] Immunizations Immunization Date Immunization Notes Care Provider [facility] 09-02-2024 tetanus toxoid, redu james diphtheria toxoid, and acellular pertussis vaccine, adsorbed; Translations: [Boostrix (Tdap)] VERO ORTEZ GOLD BLOWER-DRILL HAND [facility] 09-02-2024 Pneumococcal conjuga te PCV20, polysaccharide [id number] conjugate, adjuvant, PF; Translations: [Prevnar 20] VERO MAST GOLD BLOWER-[facility]RILL [facility] 05-11-2024 influenza, injectabl e, quadrivalent, contains preservative; Translations: [Fluarix PF Prefilled Syringe ] VERO MAST GOLD BLOWER-[facility]RILL HAND [facility] 04-04-2024 influenza, seasonal, injectable, preservative free VERO MAST GEOSPATIAL SCIENTIST Work Phone: [facility] 05-03-2023 influenza, injectabl e, quadrivalent, contains preservative Papa Douglass MD Work Phone: [facility] 05-03-2023 pneumococcal (PCV20) vaccine, 20 valent (PREVNAR 20) Papa Douglass MD Work Phone: [facility] 05-03-2023 pneumococcal Conjuga te, unspecified formulation Papa Douglass MD Work Phone: [facility] Work Phone: 05-03-2023 influenza virus vaccine, unspecified formulation [facility] Work Phone: [facility] 02-19-2021 Covid (Pfizer) Dr. Papa [place] Work Phone: [facility] 08-10-2020 COVID-19 vaccine, ag e 12+ yr (PFIZER-BIONTECH - PURPLE TOP) Coco Waters GOLD BLOWER.[facility] HAND Work Phone: [facility] 07-13-2020 COVID-19 vaccine, ag e 12+ yr (PFIZER-BIONTECH - PURPLE TOP) Coco Waters GOLD BLOWER.[employer] Work Phone: [facility] 04-21-2020 influenza, seasonal, injectable Coco Waters APRN.DRILL HAND Work Phone: [facility] 04-21-2020 influenza virus vaccine, unspecified formulation Mela Garcia APRN.DRILL HAND Work Phone: [facility] 06-06-2018 tetanus toxoid, redu james diphtheria toxoid, and acellular pertussis vaccine, adsorbed Coco Tannhof GOLD BLOWER.[employer] Work Phone: [facility] 04-04-2017 influenza, injectabl e, quadrivalent, contains preservative Coco Tannhof GOLD BLOWER.[employer] Work Phone: [facility] 01-24-2017 tetanus toxoid, redu james diphtheria toxoid, and acellular pertussis vaccine, adsorbed Coco Tannhof GOLD BLOWER.[employer] Work Phone: [facility] 05-20-2016 influenza, injectabl e, quadrivalent, contains preservative Coco Tannhof GOLD BLOWER.[employer] Work Phone: [facility] 08-02-2015 influenza, injectabl e, quadrivalent, contains preservative Coco Tannhof GOLD BLOWER.[employer]RI[employer] Work Phone: [facility] 08-02-2015 influenza, injectabl e, quadrivalent, preservative free Coco Tannhof GOLD BLOWER.[employer] Work Phone: [facility] 05-26-2012 influenza virus vaccine, unspecified formulation Coco Lisahof GOLD BLOWER.[employer] Work Phone: [facility] 02-05-2012 pneumococcal polysaccharide vaccine, 23 valent Cocokobi Gonzalezhof GOLD BLOWER.[facility] Work Phone: [facility] Payers Date Payer Category Payer Medicaid (Managed Care) [facility] [id number] 2024 Self-pay [id number] 2023 Unknown [id number] 2022 Medicaid [id number] 2022 Government (not [facility] or Medicaid) [facility] GENERIC [id number] 2022 Unknown [id number] .[id number] 2011 Private Health Insurance [employer] A ETNA CHOICE POS II [id number] 2011-Present [phone] [address] [address] [place] [address] POS [id number] 2011 Private Health Insurance [id number] 2011 Private Health Insurance [id number] .[id number] 1966 Unknown [id number] 2.16.840.1.913597.3.579.2 .1966 Unknown [id number] 2.16.840.1.708785.3.579.2 .1966 Unknown [id number] 2.16.840.1.883641.3.579.2 1966 Unknown [id number] 2.16.840.1.986312.3.579.2 1966 Unknown [id number] 2.16.840.1.209481.3.579.2 1966 Unknown [id number] 2.16.840.1.691970.3.579.2 1966 Unknown [id number] 2.16.840.1.160800.3.579.2 .1966 Unknown [id number] 2.16.840.1.820958.3.579.2 1966 Unknown [id number] 2.16.840.1.026073.3.579.2 1966 Unknown [id number] 2..840.1.293848.3.579.2 1966 Unknown [id number] 2..840.1.241641.3.579.2 1966 Unknown [id number] 2.16.840.1.217644.3.579.2 1966 Unknown [id number] 2.16.840.1.410177.3.579.2 1966 Unknown [id number] 2.16.840.1.284737.3.579.2 1966 Unknown [id number] 2.16.840.1.656770.3.579.2 1966 Unknown [id number] 2.16.840.1.328011.3.579.2 1966 Unknown [id number] 2.16.840.1.381327.3.579.2 1966 Unknown [id number] 2.16.840.1.497213.3.579.2 1966 Unknown [id number] 2.16.840.1.187308.3.579.2 .62 1966 Unknown [id number] 2.16.840.1.865474.3.579.2 .62 1966 Unknown [id number] 2.16.840.1.603053.3.579.2 62 1966 Unknown [id number] 2.16.840.1.708139.3.579.2 .1966 Unknown [id number] 2.16.840.1.441402.3.579.2 1966 Unknown [id number] 2.16.840.1.797922.3.579.2 .1966 Unknown [id number] 2.16840.1.590537.3.579.2 1966 Unknown [id number] 2.16840.1.911693.3.579.2 1966 Unknown [id number] 2.16840.1.626474.3.579.2 1966 Unknown [id number] 2.16840.1.105554.3.579.2 1966 Unknown [id number] 2.16840.1.854579.3.579.2 .594 1966 Unknown [id number] 2.16840.1.032330.3.579.2 .594 1966 Unknown [id number] 2.16.840.1.178599.3.579.2 .594 1966 Unknown [id number] 2.16.840.1.361705.3.579.2 .594 1966 Unknown [id number] 2.16.840.1.866290.3.579.2 594 1966 Unknown [id number] 2.16.840.1.893090.3.579.2 .594 1966 Unknown [id number] 2.16.840.1.212959.3.579.2 .594 1966 Unknown [id number] 2.16.840.1.352361.3.579.2 .594 1966 Unknown [id number] 2.16.840.1.926218.3.579.2 .594 1966 Unknown [id number] 2.16.840.1.692647.3.579.2 .594 1966 Unknown [id number] 2.16.840.1.823773.3.579.2 .594 1966 Unknown [id number] 2.16840.1.919673.3.579.2 .594 1966 Unknown [id number] 2.840.1.660199.3.579.2 .594 1966 Unknown [id number] 2.840.1.409229.3.579.2 .594 1966 Unknown [id number] 2.840.1.470513.3.579.2 .594 1966 Unknown [id number] 2.840.1.216640.3.579.2 .594 1966 Unknown [id number] 2.840.1.474166.3.579.2 .594 1966 Unknown [id number] .840.1.134542.3.579.2 .594 1966 Unknown [id number] .840.1.281510.3.579.2 .594 Unknown [id number] Unknown [id number] Unknown [id number] 2.16840.1.300217.3.579.2 .462 Unknown [id number] 2.840.1.417635.3.579.2 .462 Unknown [id number] 2.16.840.1.786818.3.579.2 .462 Unknown [id number] 2.16.840.1.980163.3.579.2 .462 Unknown [id number] 2.16.840.1.659212.3.579.2 .462 Unknown [id number] 2.16.840.1.456742.3.579.2 .462 Unknown [id number] 2.16.840.1.809986.3.579.2 .462 Unknown [id number] 2.16.840.1.169591.3.579.2 .462 Unknown [id number] 2.16.840.1.530152.3.579.2 .462 Unknown [id number] 2.16.840.1.053136.3.579.2 .462 Unknown [id number] 2.16.840.1.309301.3.579.2 .462 Unknown [id number] 2.16.840.1.675067.3.579.2 .462 Unknown [id number] 2.16.840.1.481699.3.579.2 .462 Unknown [id number] 2.16.840.1.273939.3.579.2 .462 Unknown [id number] 2.16.840.1.101408.3.579.2 .462 Unknown [id number] 2.16.840.1.973285.3.579.2 .462 Unknown [id number] 2.16.840.1.130679.3.579.2 .462 Unknown [id number] 2.16.840.1.072803.3.579.2 .462 Unknown [id number] 2.16.840.1.488281.3.579.2 .462 Unknown [id number] 2.16.840.1.860485.3.579.2 .462 Unknown [id number] 2.16.840.1.988488.3.579.2 .462 Unknown [id number] 2.16.840.1.126160.3.579.2 .462 Unknown [id number] 2.16.840.1.987424.3.579.2 .462 Unknown [id number] 2.16.840.1.482540.3.579.2 .462 Unknown [id number] 2.16.840.1.297177.3.579.2 .462 Unknown [id number] 2.16840.1.693046.3.579.2 .462 Unknown [id number] 2.16840.1.504334.3.579.2 .462 Unknown [id number] 2.840.1.049046.3.579.2 .462 Unknown [id number] 2.840.1.353436.3.579.2 .462 Unknown [id number] 2.840.1.594202.3.579.2 .462 Unknown [id number] 2.840.1.275616.3.579.2 .462 Unknown [id number] 2.840.1.629316.3.579.2 .462 Unknown [id number] 2.840.1.345052.3.579.2 .462 Unknown [id number] 2.16840.1.481606.3.579.2 .462 Unknown [id number] 2.16840.1.243675.3.579.2 .462 Unknown [id number] 2.16840.1.272863.3.579.2 .462 Unknown [id number] 2.16840.1.654493.3.579.2 .462 Unknown [id number] 2.16840.1.964181.3.579.2 .462 Unknown [id number] 2.16.840.1.190674.3.579.2 .462 Unknown [id number] 2.16840.1.270712.3.579.2 .462 Unknown [id number] 2.16840.1.414606.3.579.2 .462 Unknown [id number] 2.16840.1.613864.3.579.2 .462 Unknown [id number] 2.16840.1.026964.3.579.2 .462 Unknown [id number] 2.840.1.635486.3.579.2 .462 Unknown [id number] 2.840.1.288674.3.579.2 .462 Unknown [id number] 2.0.1.289195.3.579.2 .462 Social History Date Type Detail Facility Start: 05-29-2012 End: 05-07-2024 Tobacco smoking status NHIS Ex-smoker [facility] Start: 05-29-2000 End: 05-29-2010 History of tobacco use Current smoker [facility] Start: 05-29-2000 End: 05-29-2010 History of tobacco use Cigarette Smoker [facility] Start: 05-29-2012 End: 12-31-2024 Cigarettes smoked current (pack per day) - Reported 0.5 [facility] Start: 05-29-2012 End: 05-07-2024 Tobacco use and exposure Smokeless tobacco non-user [facility] Start: 10-06-2021 End: 07-02-2023 Alcohol intake Current drinker of alcohol (finding) [facility] Start: 02-24-2018 History SDOH Alcohol Comment occasionally [facility] Start: 02-08-2021 History SDOH Social Connections Phone 3 [facility] Start: 02-08-2021 History SDOH Social Connections Shinto 1 [facility] Start: 02-08-2021 History SDOH Social Connections Membership 2 [facility] Start: 02-08-2021 History SDOH Social Connections Living 7 [facility] Start: 02-08-2021 History SDOH Physica l Activity DPW 0 [facility] Start: 02-08-2021 History SDOH Financial 4 [facility] Start: 1965 Sex Assigned At Not on file [facility] Start: 09-29-2021 End: 06-21-2022 Exposure to SARS-CoV-2 (event) Not sure [facility] Start: 02-09-2022 End: 04-18-2023 Tobacco smoking status NHIS Unknown if ever smoked [facility] Start: 09-26-2020 Cigarettes [facility] Start: 1965 Sex Assigned At Female W [facility] Start: 03-19-2022 Tobacco Comment one pack per w [place] for 2 years [facility] Start: 09-12-2017 Occasional [facility] Start: 09-12-2017 None [facility] Start: 09-12-2017 With Family [facility] Start: 02-08-2021 End: 12-31-2024 Social connection and isolation panel [facility] Do you belong to any clubs or organizations such as pentecostalism groups, unions, fraternal or athletic groups, or school groups? No [facility] Are you now , , , , never or living with a partner? Never [facility] How hard is it for y ou to pay for the very basics like food, housing, medical care, and heating Not very hard [facility] Adult Depression Screening Assessment 0 [facility] Work Phone: (I/We) worried blaine er (my/our) food would run out before (I/we) got money to buy more. Never true [facility] In the past 12 month s, was there a time when you were not able to pay the mortgage or rent on time? Yes [facility] Start: 06-21-2023 End: 11-06-2024 Tobacco smoking status Never smoked tobacco (finding) [facility] Sex Assigned At [facility] Start: 05-07-2024 End: 12-31-2024 Alcoholic beverage intake Ex-drinker (finding) [facility] Start: 08-30-2005 End: 03-01-2020 Sex Female (finding) [facility] NEGATED: Highlighted row Not [facility] Medical Equipment Procedure Code Equipment Code Equipment Origin al Text Equipment Identifier Dates EGD, with monitored anesthesia care HEMOSPRAY FDA Start: 04-04-2024 EGD, with monitored anesthesia care Tissue marking ink [id number] FDA Start: 04-04-2024 EGD, with monitored anesthesia care Ligation clip, metallic [id number] FDA Start: 04-04-2024 EGD, with monitored anesthesia care HEMOSPRAY FDA Start: 04-04-2024 EGD, with monitored anesthesia care HEMOSPRAY FDA Start: 04-04-2024 EGD, with monitored anesthesia care HEMOSPRAY FDA Start: 04-04-2024 EGD, with monitored anesthesia care HEMOSPRAY FDA Start: 04-04-2024 EGD, with monitored anesthesia care HEMOSPRAY FDA Start: 04-04-2024 EGD, with monitored anesthesia care HEMOSPRAY FDA Start: 04-04-2024 EGD, with monitored anesthesia care HEMOSPRAY FDA Start: 04-04-2024 Mirena Iud [id number] - [id number] Start: 01-06-2013 Comment on above: Description: Mirena [id number], [id number], [id number], [id number], [id number] Start: 07-01-2019 End: 01-19-2023 Comment on above: Use to check blood s ugar three times daily. Dx: Type 2 DM - Uncontrolled E11.65 Use one needle 3-4 t imes daily with insulin. E11.65 Insulin: Yes Use to check blood s ugar three times daily. Dx: Type 2 DM - Uncontrolled E11.9 MULTIPLE INSULIN INJECTIONS Blood Sugar Diagnostic (Onetouch Verio Test Strips) strip Start: 02-18-2023 Blood Sugar Diagnostic (Onetouch Verio Test Strips) strip Start: 09-23-2023 Lancets (Easy Touch Lancets) 30 gauge misc Start: 09-24-2024 Blood Sugar Diagnostic (Onetouch Verio Test Strips) strip Start: 02-18-2023 End: 09-23-2023 Blood Sugar Diagnostic (Onetouch Verio Test Strips) strip Start: 09-23-2023 Lancets (Easy Touch Lancets) 30 gauge misc Start: 09-24-2024 Blood Sugar Diagnostic (Onetouch Verio Test Strips) strip Start: 02-18-2023 End: 09-23-2023 Blood Sugar Diagnostic (Onetouch Verio Test Strips) strip Start: 09-23-2023 Lancets (Easy Touch Lancets) 30 gauge misc Start: 09-24-2024 Blood Sugar Diagnostic (Onetouch Verio Test Strips) strip Start: 02-18-2023 End: 09-23-2023 Blood Sugar Diagnostic (Onetouch Verio Test Strips) strip Start: 09-23-2023 Lancets (Easy Touch Lancets) 30 gauge misc Start: 09-24-2024 Blood Sugar Diagnostic (Onetouch Verio Test Strips) strip Start: 02-18-2023 End: 09-23-2023 Blood Sugar Diagnostic (Onetouch Verio Test Strips) strip Start: 09-23-2023 Lancets (Easy Touch Lancets) 30 gauge misc Start: 09-24-2024 Blood Sugar Diagnostic (Onetouch Verio Test Strips) strip Start: 02-18-2023 End: 09-23-2023 Blood Sugar Diagnostic (Onetouch Verio Test Strips) strip Start: 09-23-2023 Lancets (Easy Touch Lancets) 30 gauge misc Start: 09-24-2024 Blood Sugar Diagnostic (Onetouch Verio Test Strips) strip Start: 02-18-2023 End: 09-23-2023 Blood Sugar Diagnostic (Onetouch Verio Test Strips) strip Start: 09-23-2023 Lancets (Easy Touch Lancets) 30 gauge misc Start: 09-24-2024 Blood Sugar Diagnostic (Onetouch Verio Test Strips) strip Start: 02-18-2023 End: 09-23-2023 Blood Sugar Diagnostic (Onetouch Verio Test Strips) strip Start: 09-23-2023 Lancets (Easy Touch Lancets) 30 gauge misc Start: 09-24-2024 Blood Sugar Diagnostic (Onetouch Verio Test Strips) strip Start: 02-18-2023 End: 09-23-2023 Goals Date Patient Goal Desired Activity /State Personal health goal Comment on above: Formatting of this n ote might be different from the original. Patient Care Plan: Minimizing Financial Hardship Interventions: PCRM made referral to for SSDI and rent assistance Expected Patient Goals: Patient connected with resources that lead to health promotion and support. Personal health goal Personal health goal Functional Status Date Assessment Result Facility 03-30-2024 Functional Status Safety level maintained [facility] 02-25-2024 Functional Status Independent [facility] holly [facility] 02-25-2024 Functional Status ID band on, Allergy Band on, Call device within reach, Bed in low position, Wheels locked, Upper/Half-Length side-rails up, Safety level maintained [facility] 04-20-2023 Functional status Ambulates;Up ad radha [facility] Work Phone: 02-11-2022 Functional status Chair [facility] Work Phone: 02-21-2015 Are you deaf, or do you have serious difficulty hearing No 02/21/2015 4:24 PM EDT Bg Johnston LPN No [facility] 02-21-2015 Are you blind, or do you have serious difficulty seeing, even when wearing glasses No 02/21/2015 4:24 PM EDT Bg Johnston LPN No [facility] 02-21-2015 Do you have serious difficulty walking or climbing stairs No 02/21/2015 4:24 PM EDT Bg Johnston LPN No [facility] 02-21-2015 Do you have difficul ty dressing or bathing No 02/21/2015 4:24 PM EDT Bg Johnston LPN No [facility] 02-21-2015 Because of a physica l, mental, or emotional condition, do you have difficulty doing errands alone such as visiting a physician's office or shopping No 02/21/2015 4:24 PM EDT Bg Johnston LPN No [facility] Mental Status Date Assessment Result Facility 11-03-2024 Cognitive function Level Of Cons ciousness Awake;Alert;Appropriate;Fol lows Commands [facility] Work Phone: 07-29-2024 Cognitive function Level Of Cons ciousness Sedated [facility] Work Phone: 07-29-2024 Cognitive function Voice/Name [facility] Work Phone: 03-30-2024 Mental Status Oriented x 4 [facility] 02-25-2024 Mental Status Orientation Oriented x 4 [facility] 02-25-2024 Mental Status [facility] 04-20-2023 Cognitive function Voice/Name [facility] Work Phone: 01-20-2023 Cognitive function Level Of Cons ciousness Awake;Alert;Appropriate [facility] Work Phone: 01-07-2023 Cognitive function Level Of Cons ciousness Awake;Alert;Appropriate;Fol lows Commands [facility] Work Phone: 10-25-2022 Cognitive function Level Of Cons ciousness Awake;Alert;Appropriate;Fol lows Commands [facility] Work Phone: 09-21-2022 Cognitive function Level Of Cons ciousness Awake;Alert;Appropriate;Fol lows Commands [facility] Work Phone: 08-31-2022 Cognitive function Voice/Name [facility] Work Phone: 02-11-2022 Cognitive function Voice/Name [facility] Work Phone: 02-09-2022 Cognitive function Level Of Cons ciousness Awake;Drowsy [facility] Work Phone: 02-21-2015 Because of a physica l, mental, or emotional condition, do you have serious difficulty concentrating, remembering, or making decisions No 02/21/2015 4:24 PM EDT Bg Johnston LPN No [facility] Clinical Notes 10-12-2021 to 12-31-2024 Scott Berrios MD, MPH - 12/31/2024 2:50 PM EDTPatient Instructions Note Date & Type Note Facility 12-31-2024 History of Present illness Narrative This telehealth visit is a real time audio communication. During the scheduling process, this patient has verbally consented to the submission of Telehealth visits and the patient is aware of the risks, benefits, and possible coinsurance/copay costs. This visit is being conducted by real time telephone. Patient Location: Home Time to complete visit: 40 min (audio time + care coordination + charting) HISTORY OF PRESENT ILLNESS: Ms. Leroy Tyler is a 59 y.o. 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 diagnosed on 04/04/24. She was referred here to endocrine oncology clinic for further management. She was in usual state of health until 03/2024 when she presented to OSH with ozzy and SOB: 04/03/2024 CT abd/pelvis COMPARISON:Prior study dated: 03/04/2024 IMPRESSION: Small nonobstructing stones in the L kidney. Hepatosplenomegaly. 04/03/2024 CTA chest No central PE. No evidence of aortic dissection. Mild GGO. No focal consolidation. Hepatosplenomegaly. 04/04/24: EGD The examined esophagus was normal. Multiple 100 mm sessile polyps with no bleeding and no stigmata of recent bleeding were found in the GJ junction. In the cardia, in the gastric body, on the greater curvature of the stomach and on the lesson curvature of the stomach. Biopsies were taken with a cold forcepts for histology. A signle 3.1cm pedunculated and sessie polyp with severe bleeding and stigmata of recent bleeding was found in the cardia. Area was successfully injected with 2epinephrine and tattoes. The polyp was removed with a saline injection-lift technique using a cold snare. Resection and retrieval were complete. No gross lesions were noted in the first portion of the duodenum [facility] read of pathology: A. 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 Tumor is present at both lateral margins and at the deep margin. The depth of invasion can not be assessed. No lymphovascular invasion identified. No perineural invasion is identified. Proliferation index as per Ki67 IHC is approximately 7% Lesion is positive for neuroendocrine markers chromogranin, CD56 and synaptophysin as well as for keratin AE1/AE3 (Focal) CK8 and CDX2; and it is negative for CK7. CK8 and CK20. 06/23/2024: EGD and Upper EUS (at [facility]) - Normal esophagus. - A single gastric polyp (1.5cm in the cardia). Resected and retrieved. Clip (MR conditional) was placed. Clip labor representative: [employer]. - An endoclip was found in the stomach. Removal was successful. - Two gastric polyps (0.9-1.1 cm in the gastric antrum). Resected and retrieved. Clips (MR conditional) were placed. Clip labor representative: [employer]. - 1.5cm post mucosectomy scar in the gastric body. Clips (MR conditional) were placed. Clip labor representative: [employer]. - A hypoechoic irregular mass was identified endosonographically in the body of the stomach. The mass measured 6 mm by 5 mm in maximal cross-sectional diameter. There was sonographic evidence suggesting invasion into the deep mucosa (Layer 2). A mass was found in the body of the stomach. A tissue diagnosis was obtained prior to this exam. - One abnormal lymph node (1.4x1.2 cm) was visualized in the peripancreatic region. Tissue was obtained from this exam, and results are pending. However, the endosonographic appearance is benign inflammatory changes. Fine needle biopsy performed. - Multiple 3 to 8 mm sessile polyps with no bleeding and no stigmata of recent bleeding were found in the stomach Per my discussion with the advanced endoscopist, patient has several sessile gastric polyps that were not removed. Pathologic Diagnosis A. Lymph node, peripancreatic, fine needle biopsy: Metastatic neuroendocrine tumor, well differentiated. Tumor is positive for neuroendocrine markers chromogranin and synaptophysin Proliferation index as measured with Ki 67 is 8% B. 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 Tumor is positive for neuroendocrine markers chromogranin and synaptophysin Proliferation index as measured with Ki 67 is 5% C. Stomach, distal, polyps x2, biopsy: Well differentiated neuroendocrine tumors, 5 and 6 mm WHO grade 2 Both appear to extend to the base of the biopsy. Tumors are positive for neuroendocrine markers chromogranin and synaptophysin Proliferation index as measured with Ki 67 is approximately 4% D. Stomach, cardia, polyp, biopsy: Cardiac type hyperplastic polyp with intestinal metaplasia. No evidence of epithelial dysplasia. No evidence of neuroendocrine tumor. Neuroendocrine markers highlight only focal linear neuroendocrine cell hyperplasia. Ki 67 is unremarkable. 07/29/24: Colonoscopy : prep was inadequate. Will request procedure note. Was advised repeat colonoscopy in 6 months. Interim History Chief Complaint Patient presents with Follow-up (Please send link to listed mobile # [phone] C/o having issues with acid reflux and she was recently diagnosed with COVID and is she is currently on treatment for this Leroy Tyler is present today for a follow up evaluation. Since her last visit on 08/27/24 09/03/24: Patient s/p Upper Endoscopy Impression: - Normal esophagus. - There was extensive involvement of the stomach with multiple flat elevated lesions, suspicious for neuroendocrine tumor. The total number of lesions is over 30. - Several lesions were underlying previously placed clips, consistent with recurrence after previous resection. - A 20 mm flat elevated lesion was seen along the anterior wall of the stomach, consistent with persistent NET despite two prior resection attempts. Biopsied. - Six of the largest lesions were resected en bloc with band EMR. Post-resection defects closed with 6x clips. - Normal examined duodenum. - Gastric pH studies were obtained Pathologic Diagnosis A. Stomach antrum, biopsy: Gastric antral mucosa with chronic active gastritis Positive for intestinal metaplasia, negative for dysplasia Negative Helicobacter pylori immunostain B. Gastric polyps x6, biopsy: Well differentiated neuroendocrine tumor, WHO grade 2, multifocal, largest focus 5.5 mm; see COMMENT COMMENT: Biopsies show fragments of gastric mucosa with multifocal well differentiated neuroendocrine tumor. The largest focus measures 5.5 mm. On immunohistochemistry the tumor is positive for synaptophysin and chromogranin with Ki-67 proliferation index of 10%. Tumor focally abuts the inked deep cauterized edges of some of the fragments. The background gastric mucosa shows multifocal intestinal metaplasia (goblet cells) and neuroendocrine hyperplasia (highlighted by synaptophysin and chromogranin immunostains). There is diffuse chronic inflammation and patchy oxyntic gland atrophy. Gastrin immunostain highlight scattered positive cells. Overall the findings are suggestive of neuroendocrine tumor arising in the background of autoimmune chronic atrophic metaplastic gastritis (AMAG). Clinical correlation is recommended. House Cleaner slides were reviewed at the daily GI pathology consensus conference and those present in the meeting agreed with the above interpretation. Patient reports that in november 2024 she nausea, increased heart burn and indigestion for 3 days. No vomiting/diarrhea. All of these symptoms have now resolved. She had been off PPI from 07/31/24-09/03/24 and resumed on 09/04/24 after EGD. He was diagnosed with COVID19 yesterday- had chills, congestion, cough. She is currently on paxlovid. She is on continuous O2: 2 L/min since Feb 2024 (reports she was dx with COVID19 then). ECOG PS: 1 REVIEW OF SYSTEMS: Fatigue: Fatigue relieved by rest Constipation: Occasional or intermittent symptoms OR occasional use of stool softeners, laxatives, dietary modification, or enema Peripheral Motor Neuropathy: Absent or within normal limits Depression: Mild depressive symptoms Dyspnea: Shortness of breath with moderate exertion Rash Maculo-Papular: Macules/papules covering less than 10% BSA with or without symptoms (e.g., pruritus, burning, tightness) Palmar-Plantar Erythrodysesthesia Syndrome: Absent or within normal limits Pain: Mild pain Fever: Absent or within normal limits Localized Edema: Absent or within normal limits is allergic to bactrim [sulfamethoxazole-trimethoprim], codeine, and penicillins. is allergic to bactrim [sulfamethoxazole-trimethoprim], codeine, and penicillins. Allergies Allergen Reactions Bactrim [Sulfamethoxazole-Trimethoprim] Blisters Codeine Swelling Penicillins Rash Current Outpatient Medications Medication Sig Dispense Refill Albuterol 108 (90 Base) MCG/ACT Aero Soln inhaler Inhale 1 puff every 6 hours as needed for Shortness of Breath. Atorvastatin 20 MG tablet Take 1 tablet by mouth daily. diclofenac EC [address] tablet Take 1 tablet by mouth 2 times daily. ferrous sulfate 325 (65 Fe) MG tablet Take 1 tablet by mouth every other day. 30 tablet 1 FLUoxetine 40 MG capsule Take 1 capsule by mouth daily. fluticasone 50 MCG/ACT Suspension nasal spray 2 sprays by Nasal route daily. Levonorgestrel (Mirena, 52 MG,) 20 MCG/DAY 1 Intra Uterine Device by Intrauterine route. Levothyroxine 200 MCG tablet Take 1 tablet by mouth daily. 1.5 on Sundays NovoLOG FlexPen 100 UNIT/ML Solution Pen-injector injection Inject under the skin 3 times daily (take before meals). Sliding scale oxygen gas Inhale 2 L As directed. Please provide: small portable tanks This order certifies that this patient is under my care and that I, or a Nurse Practitioner or Physician's Auger Mill Operator had a [id number]-lk-[id number] Encounter with them. Based upon those findings, the equipment/supplies listed above are medically necessary. Pantoprazole [address] tablet DR Take 1 tablet by mouth 2 times daily. 60 tablet 2 Trulicity 0.75 MG/0.5ML Solution Auto-injector injection 0.5 mL once a week. urea 10 % Cream Apply 1 Application topically 2 times daily as needed. Apply to affected area. No current facility-administered medications for this visit. Past Medical History: Diagnosis Date Anxiety Arthritis Cirrhosis of liver COVID-19 Diabetes mellitus GERD (gastroesophageal reflux disease) History of cancer Hyperlipidemia Hyperthyroidism Liver disease KODI (obstructive sleep apnea) Renal disease Past Surgical History: Procedure Laterality Date COLONOSCOPY DIAGNOSTIC 2017 x 2 DILATION AND CURETTAGE LAP CHOLECYSTECTOMY [facility] family history includes Breast Cancer (age of onset: 63) in her mother; Coronary Artery Disease in her maternal grandfather; Lung Cancer (age of onset: 53) in her father; Myocardial Infarction in her maternal grandfather; Thyroid Disease in her maternal grandmother. Family Hx: Mom had breast cancer in her 60s, dad had kidney cancer in his 50s. She has a younger brother who is healthy. No family hx of neuroendocrine cancer. No family hx s/o MEN1. Social Hx: Single. Lives by herself. 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 Used to smoke cigarettes (1 pack per week x 3-4 years, quit in 2000), used to drink alcohol (7 bottles of mixed alcoholic drinks over the weekends: from her teens through 30s. Quit drinking in 2000. Smoked marijuana (in her teens), snorted cocaine (in her 40s)-, and methamphetamine (in her 40s. Quit in ~2018. PHYSICAL EXAMINATION: Otherwise N/A as this was a phone visit. IMAGING STUDIES: Imaging results were reviewed and discussed with the patient at length today. CT ABDOMEN/PELVIS WITH AND WITHOUT CONTRAST, 12/24/24 COMPARISON: 08/14/2024 CT, 07/30/[address] IMPRESSION: 1. Stable mildly enlarged gastrohepatic lymph node, with no definite CT evidence for progressive disease in the abdomen/pelvis when compared to 08/14/2024. 2. Stable splenomegaly. 3. Small left ureteral stone seen on prior exam is no longer identified. LABS: CMP Lab Results Component Value Date SODIUM 131 (L) 12/24/2024 POTASSIUM 4.7 12/24/2024 CHLORIDE 95 (L) 12/24/2024 CO2 31 12/24/2024 BUN 14 12/24/2024 CREATSERUM 0.69 12/24/2024 GLUCOSE 312 (H) 12/24/2024 CALCIUM 9.6 12/24/2024 ALT 49 (H) 12/24/2024 AST 57 (H) 12/24/2024 ALKPHOS 143 (H) 12/24/2024 BILITOTAL 0.5 12/24/2024 ALBUMIN 3.8 12/24/2024 CBC Lab Results Component Value Date WBC 8.83 12/24/2024 HGB 12.1 12/24/2024 HCT 37.7 12/24/2024 PLATELET 251 12/24/2024 MCV 79.0 (L) 12/24/2024 TUMOR MARKERS Lab Results Component Value Date CALCITONIN <5.00 08/14/2024 PANCPOLYP 739 (H) 12/24/2024 PANCPOLYP 538 (H) 08/14/2024 GASTRIN 1296 (H) 12/24/2024 GASTRIN 537 (H) 08/14/2024 GASTRIN 591 (H) 05/07/2024 Lab results have been reviewed and discussed with the patient. IMPRESSION & PLAN: Ms. Leroy Tyler is a 58 y.o. 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 Gastric neuroendocrine tumor: -Clinically doing okay. Has been on pantoprazole since 07/31/24 and noticed intermittent GERD. 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 -While regional LN metastases is not typical of type 1 gastric carcinoid, it has been reported. -Patient's clinical picture does not fit ZES (given the tumor location, and the absence of sequelae of gastric acid hypersecretion: such as ulcers) or PPI associated gastric carcinoid (As she has been on PPI only since 03/2024). - Recent EGD from 08/2024 revealed >30 gastric lesions and the 6 largest lesions were endoscopically resection and revealed well-diff NET, Ki 67: 10%. Gastric pH studies could not be sent as [facility] is no longer running this testing - I reviewed serial CT A/P since 09/2020. The gastrohepatic LN has slowly progressively enlarged in size since then (and has ~doubled in size since then). Since 07/2024, it has been more or less stable in size. - I had a long discussion with patient about her diagnosis. I explained that gastrectomy is not recommended for these tumors. Management would be periodic endoscopic surveillance and resection of suspicious lesions . - It remains unclear why patient has ongoing need for PPI as type 1 gastric carcinoids has chronic atrophic gastritis/AMAG - I recommended continued active surveillance - RTC in ~6 mo with labs/scans prior Hypothyroidism: on levothyroxine GERD: On pantoprazole Microcytic anemia: Hgb has improved on iron supplementation. Patient denies any hematochezia/ozzy. Last colonoscopy in 07/2024 was reportedly a poor prep and she was advised repeat colonoscopy in 6 mo. She will call [facility] for scheduling. C/w iron supplementation. Hyponatremia: Pseudohyponatremia 2/2 hyperglycemia. Advised patient to check glucose at home and follow-up with PCP. COVID19 diagnosis: On paxlovid. Supportive care Elevated transaminases, hepatosplenomegaly: avoid hepatotoxins. Referral to hepatology (patient prefers seeing hepatology locally). Documented by Edward Her Dr. Konda on 12/31/2024 at 3:57 PM. All medical record entries made by the Taina were at my direction and personally dictated by me, Scott Berrios MD, MPH . I have reviewed and edited the chart and agree that the record accurately reflects my personal performance of the history, physical exam, assessment and plan. I have also personally directed, reviewed, and agree with the discharge instructions. documented in this encounter [facility] 12-31-2024 Instructions Scott Berrios MD, MPH - 12/31/2024 2:50 PM EDT Referral to hepatology (local) please send requisition through [facility] RTC in approx [address] Berrios (in person) Labs and scans approx 10 days prior to RTC documented in this encounter [facility] 12-30-2024 Progress note [facility] 12-30-2024 Progress note Note Date/Time December 30, 2024 11:07am [facility] [address], [address] [place] [address] OFFICE VISIT Date of Service: 12/30/24 MR#: [id number] Acct: [id number] Name: LEROY TYLER Rep #: [id number] : 1965 Provider: ALISA Abbott Age/Sex: 59/F Location: [facility] Status: Signed Intake Vital Signs 11/03/24 21:01 12/30/24 10:43 Height 5 ft 1 in BP 128/70 H Blood Pressure Location Lt brachial Position Sitting Respiration 16 Pulse 92 Pulse Source NIBP Temp 98.2 F Temp Source Oral Pulse Oximetry (%) 99 Oxygen Delivery Method room air Intake Visit Reasons: SINUS COMPLAINT/ROY/COUGH Chief Complaint: congest, BA, ROY, cough Second Butler Required: No Is patient in pain?: No Allergies codeine Allergy (Verified 12/30/24 10:44) Angioedema nitrofurantoin Allergy (Verified 12/30/24 10:44) edema Penicillins Allergy (Verified 12/30/24 10:44) Rash Sulfa (Sulfonamide Antibiotics) Allergy (Verified 12/30/24 10:44) Rash sulfamethoxazole (Bactrim) Allergy (Verified 12/30/24 10:44) Unknown trimethoprim (Bactrim) Allergy (Verified 12/30/24 10:44) Unknown Medications ?Medication ?Instructions ?Recorded ?Confirmed ?Type blood-glucose sensor (Dexcom G7 #3 ea 02/18/23 5 Rx Sensor device) blood-glucose,entertainment usher,cont #1 ea 02/18/23 10/30/24 Rx (Dexcom G7 Donor Services Team Leader) acetaminophen 500 mg tablet 500 - 1,000 mg PO Q6H PRN fever or 04/18/23 10/30/24 History pain blood sugar diagnostic (OneTouch #100 ea 09/23/2310/20 Rx Verio test strips) levothyroxine 200 mcg tablet 200 mcg PO DAILY hypothyr oidism 09/23/23 10/30/24 Rx #90 tabs fluoxetine 40 mg capsule 40 mg PO DAILY depression 10/30/24 History insulin regular hum U-500 conc 500 100 unit (0.2 mL) s ubcut TID DM 03/12/24 10/30/24 Rx unit/mL(3 mL) subcut pen (Humulin #18 mL R U-500 (Conc) Insulin Kwikpen) pantoprazole 40 mg tablet,delayed 40 mg PO BID 30 days #60 tabs 04/07/24 10/30/24 Rx release sucralfate 1 gram tablet 1 g PO 1HR_ACHS 14 days #42 tabs 04/07/24 10/30/24 Rx fenofibrate nanocrystallized 48 mg 48 mg PO QHS 1 saray h #30 tabs 05/09/24 10/30/24 Rx tablet dulaglutide 4.5 mg/0.5 mL 4.5 mg subcut NARVAEZ 07/28/24 History [facility] lancets 30 gauge (Easy Touch #100 ea 09/24/24 10/30/24 Rx Lancets) cholecalciferol (vitamin D3) 1,250 1,250 mcg PO QWEEK 09/30/24 10/30/24 History mcg (50,000 unit) capsule ferrous sulfate 325 mg (65 mg 325 mg PO QODAY 09/30/24 10/30/24 History iron) tablet gabapentin 300 mg capsule 300 mg PO TID 30 days #90 ca ps 09/30/24 10/30/24 Rx oxycodone-acetaminophen 5 mg-325 1 tab PO Q6H PRN pain 3 days #12 09/30/24 10/30/24 Rx mg tablet (Percocet) tabs albuterol sulfate 90 mcg/actuation 2 inh inhalation Q4 -6H PRN 10/30/24 10/30/24 Rx aerosol inhaler shortness of breath or wheez ing #8.5 grams fluticasone 500 mcg-salmeterol 50 1 inh inhalation Q12 H #60 ea 10/30/24 10/30/24 Rx mcg/dose blistr powdr for inhalation (Advair Diskus) benzonatate 200 mg capsule 200 mg PO TID PRN cough #20 caps 12/30/24 12/30/24 Rx dexamethasone 6 mg tablet 6 mg PO DAILY #5 tabs 12/30/24 Rx Is last menstrual period known: No Post menopausal: Yes Patient : No Have you fallen in the past year?: No Nurse's Note: congest, BA, ROY, cough x 4 days. denies fever, ST. hx asthma--on 3L O2 constantly and cpap at night. PFSH Medical History Anxiety Loose, teeth Post-menopausal Insulin dependent diabetes mellitus History of renal disease Uses wheelchair Substance abuse Marijuana use Alcohol use Cirrhosis Fatty liver High cholesterol Chronic headaches Syncope Neuroendocrine carcinoma Dietary restriction History of GI bleed Former smoker CPAP (continuous positive airway pressure) dependence Asthma On home oxygen therapy Shortness of breath on exertion History of edema History of echocardiogram Hypertension Primary malignant neuroendocrine tumor of stomach Left carpal tunnel syndrome Right carpal tunnel syndrome Right wrist pain History of alcoholism Fatigue Hyperkalemia Noncompliance with medication regimen Depression Back pain Bloody stool Thyroid disease Anemia Arthritis Morbid obesity Hyperlipidemia Hypothyroidism Surgical History Hx of dilation and curettage Hx laparoscopic cholecystectomy Hx of colonoscopy History of esophagogastroduodenoscopy (EGD) Family History Father Cancer Mother Diabetes Grandfather Heart disease Grandmother CVA (cerebral vascular accident) Social History household members: none housing: apartment pets and animals: No Smoking Status: Former smoker Tobacco: How many years used: 2 alcohol intake: former details: Quit 2000 substance use type: does not use caffeine: Yes Type: tea HPI HPI Chief Complaint: congest, BA, ROY, cough Details: LEROY TYLER, is a 59 F who presents to the office today for initial evaluationat the [facility] for chest congestion, myalgias, headache, and moist nonproductive cough x 4 days - with new chills starting this morning. Last episode of COVID-19 in March 2024, states she has been on 3-L O2 nasal cannula dependent ever since. No history of fever, sore throat, nausea/diarrhea. No complaints of chest pain or shortness of breath or dyspnea on exertion. No zjza-ikp-maarzhw products taken to assist. Several close contacts with similar URI complaints. Patient notes having been diagnosed with COVID-19 in 2019 as well as 3 separate episodes in 2023; this would be her fifthepisode of COVID-19 today. No other associated symptoms and no alleviating/aggravating factors. ROS Const Constitutional: No other (as above) Exam Const General: cooperative, healthy appearing and no acute distress Nutritional Appearance: average body habitus Orientation: alert, awake and oriented x3 HENMT Head: normal to inspection Ears: hearing grossly normal bilaterally, external ears normal, TM's normal bilaterally and EAC's normal Nose: external nose normal, nares normal, septum normal and nasal discharge clear Face and sinus: normal facial exam, sinuses nontender and face symmetric Mouth: oral mucosae normal, lip normal, tongue normal and oropharynx normal Throat: posterior oropharynx normal, tonsils normal, uvula midline and no postnasal drainage Eyes General: appearance normal, both eyes and all related structures Neck Neck: normal visual inspection, full ROM, no lymphadenopathy, no meningeal signsand supple Chest Chest palpation & inspection: normal inspection of the chest Resp Effort & Inspection: normal respiratory effort, able to speak in complete sentences and cough Quality of cough: wet (Nonproductive in office today) Auscultation: Bilateral: Clear to Auscultation Cardio Palpation: normal PMI Rate: regular Rhythm: regular rhythm Heart Sounds: S1 normal, S2 normal, no gallops, no murmurs and no rubs Pulses: radial pulses present GI Inspection: normal to inspection Skin General: no rashes or lesions noted Neuro General: patient alert, patient awake and patient oriented x3 Cognition: normal cognition Speech: speech normal Psych Appearance: grossly normal Mental Status: mental status grossly normal Mood: congruent mood Affect: normal affect Speech and Movement: speech and movement normal Attitude: cooperative Diagnoses COVID-19 U07.1 Assessment and Plan Assessment and Plan (1) COVID-19: Status: Acute Plan: See POC results. Dexamethasone and Benzonatate as prescribed today. Supportive measures as instructed today. Patient aware of isolation recommendations and [facility] department notification. Patient contacted her PCPs office regarding above findings while in office todayleaving a message with the nurse who will transfer the information to her familyphysician she so states. Follow-up with PCP in 5 to 7 days should symptoms not improve, ED sooner should symptoms worsen or any other concerns develop. Patient states acknowledging understanding all the above. Results POC SARS AG POC SARS AG Positive Last Edit by Jaymie Borrego on 12/30/24 10:55 Coding Level of Care Code Off vis,est,level 3 Assessment and Plan Assessment and Plan Orders: Orders POC Rapid SARS Antigen Today Medications: New dexamethasone 6 mg PO DAILY 5 tabs 0RF benzonatate 200 mg PO TID PRN 20 caps 0RF cough Clinical Quality Measures Falls Risk Screening/Assistive Devices Have you fallen in the past year?: No 12/30/24 1109 <Electronically signed by Neal CUELLAR> Date _ Neal CUELLAR Cosigner Signature: Date (if applicable) CC: ~ [facility] Work Phone: [phone] 728-843705-15-2025 Note. MICRO - Microbiology PROCEDURE: Urine Culture [*1] SOURCE: Urine, Clean Catch BODY SITE: COLLECTED DATE/TIME: 12/02/2024 15:49 EDT RECEIVED DATE/TIME: 12/02/2024 18:51 EDT START DATE/TIME: 12/02/2024 18:51 EDT FREE TEXT SOURCE: FINAL REPORTS Final Report [] Verified Date/Time/Personnel: 2024 14:11 EDT 50,000 - 100,000 cfu/ml Mixed growth consistent with normal urogenital keiko. PRELIMINARY REPORTS Preliminary Report [] Verified Date/Time/Personnel: 12/02/2024 19:59 EDT Specimen received in lab. Performing Locations *1: This test was performed at: [facility], [address] [place] [address], [facility]- , [facility]04-29-2025 NotePatient Outreach (FAMPWS) LEROY TYLER ([id number]) 1965 F Date Time Provider Department 11/17/24 PAPA DOUGLASS FAMPWS During your visit today, we recorded the following information about you: Allergies As of Date: 11/17/2024 Noted Allergy Reaction CODEINE 08/01/2012 7 - Swelling NITROFURANTOIN 06/14/2021 7 - Swelling SULFA (SULFONAMIDE ANTIBIOTICS) 02/09/2022 2 - Rash 16 - Unknown SULFAMETHOXAZOLE-TRIMETHOPRIM 09/08/2015 2 - Rash Comments: Blisters all over TRIMETHOPRIM 02/09/2022 16 - Unknown Date Reviewed: 09/30/2024 Reviewed by: Rosa Cardenas, ALFONZO - Fully Assessed Visit Diagnosis:Encounter for screening mammogram for breast cancer [Z12.31] Order(s):[facility] SCREENING W JORGE ALBERTO [[id number]] Order #: [id number] FUTURE Prescriptions as of 12/18/2024 - cefdinir (OMNICEF) 300 mg capsule - GAVILYTE-G 236-22.74-6.74 -5.86 gram suspension Take by mouth one time only. - HUMULIN R U-500, CONC, KWIKPEN 500 unit/mL (3 mL) inpn INJECT 130 UNITS (0.26 ML) SUBCUTANEOUSLY THREE TIMES A DAY - furosemide (LASIX) 20 mg tablet Take 1 tablet by mouth once daily. - nystatin (MYCOSTATIN) 100,000 unit/mL suspension Take 5 mL by mouth four times daily. 1tsp swish in mouth for several minutes, then swallow (or expectorate) 4 times daily until gone. - DEXCOM G7 HOTEL RECEPTIONIST misc - DEXCOM G7 SENSOR nelly APPLY 1 SENSOR EVERY 10 DAYS - phenazopyridine (PYRIDIUM) 200 mg tablet Take 1 tablet by mouth three times daily as needed for up to 9 doses. - pantoprazole DR (PROTONIX) 40 mg tablet Take 1 tablet by mouth daily before breakfast. Take on empty stomach, 1/2 hr before meal. - meloxicam (MOBIC) 15 mg tablet Take 1 tablet by mouth once daily. Take with food. - insulin needles, DISPOSABLE, (PEN NEEDLE) 31 gauge x 5/16 Use one needle 3-4 times daily with insulin. E11.65 Insulin: Yes - lisinopril 2.5 mg tablet Take 1 tablet by mouth once daily. - atorvastatin (LIPITOR) 20 mg tablet Take 1 tablet by mouth once daily. - hydroCHLOROthiazide 25 mg tablet Take 1 tablet by mouth once daily. - ferrous sulfate 325 mg (65 mg iron) tablet TAKE 1 TABLET BY MOUTH EVERY DAY - semaglutide (OZEMPIC) 0.25 mg or 0.5 mg(2 mg/1.5 mL) pen Inject 0.25 mg subcutaneously one time a week. - albuterol HFA (VENTOLIN HFA) 90 mcg/actuation inhaler Inhale 2 Puffs as instructed every 4 hours as needed for wheezing/shortness of breath for up to 10 days. - fluticasone (FLONASE) 50 mcg/actuation nasal spray Use 1-2 Sprays in each nostril once daily. - FLUoxetine (PROZAC) 40 mg capsule Take 1 capsule by mouth once daily. - blood sugar diagnostic test strip Use to check blood sugar three times daily. Dx: Type 2 DM - Uncontrolled E11.9 MULTIPLE INSULIN INJECTIONS - levothyroxine (SYNTHROID) 200 mcg tablet Take once daily in addition to 150 mcg for thyroid - acetaminophen (TYLENOL) 325 mg tablet Take 250 mg by mouth as needed. - insulin degludec (TRESIBA FLEXTOUCH U-200) 200 unit/mL (3 mL) injection Inject 110 Units subcutaneously every morning. - metFORMIN ER (GLUCOPHAGE XR) 500 mg 24 hr tablet Take 2 tablets by mouth twice daily. - Ciclopirox (LOPROX) 8 % solution APPLY TO AFFECTED AREA DAILY AT BEDTIME. TO AFFECTED AREA. - cholecalciferol, Vitamin D3, (VITAMIN D3) 1,250 mcg (50,000 unit) cap capsule Take 1 capsule by mouth one time a week. - levonorgestrel (MIRENA) 20 mcg/24 hours (5 yrs) 52 mg IUD 1 Each by INTRAUTERINE route one time only. - Blood-Glucose Meter misc Use to check blood sugar three times daily. Dx: Type 2 DM - Uncontrolled E11.65 - Lancets lancets Use to check blood sugar three times daily. Dx: Type 2 DM - Uncontrolled E11.65 - lidocaine (XYLOCAINE) 5 % ointment Apply 1 application to affected area as needed. - ALCOHOL PREP PADS padm TEST BLOOD SUGARS 3 TIMES DAILY - CPAP as directed. - TENS unit and electrodes cmpk Meds Comments as of 09/10/2014: Problem List As Of Date 11/17/2024 Noted Resolved Type 2 diabetes mellitus without complication, *09/05/2011 Hypothyroidism [E03.9] 09/05/2011 History of anemia [Z86.2] 04/28/2012 Premenopausal menorrhagia [N92.4] 04/28/2012 Cellulitis [L03.90] 06/11/2012 Mixed hyperlipidemia [E78.2] 09/22/2012 Vitamin D deficiency [E55.9] 12/29/2012 Anemia [D64.9] Vomiting blood [K92.0] Colitis [K52.9] 06/15/2014 Morbid obesity with BMI of 50.0-59.9, adult (HC*04/09/2016 Occult blood positive stool [R19.5] 01/08/2018 Irritability [R45.4] 10/23/2018 Essential hypertension [I10] 09/22/2020 Chronic diastolic congestive heart failure (HCC*05/17/2023 Bilateral leg edema [R60.0] 05/17/2023 Encounter Status:Closed by EPIC, PRODUSER on 12/18/24[facility] 10-14-2024 Procedure notey [facility] Pulmonary Services/Neurology [address] [place] [address] MR#: [id number] Acct: [id number] Name: LEROY TYLER Rep #:[id number] : 1965 58 From: Alberto Qiu DO Referring Dr: Elsa José PRIMARY HEALTH CARE NURSE-C Status: REG CLI Location: PSN Date: Sex: F C PSN 6 Minute Walk Test 6 Minute Walk Test 6 Minute Walk Test: 6 Minute Walk Test PSN:6-Minute Walk Test Start: 10/06/24 12:53 Freq: Status: Active Protocol: RESP.6MINW Document 10/06/24 12:53 EW (Rec: 10/06/24 12:57 EW .10.25.7) 6 Minute Walk Test Date Performed 10/06/24 Time Performed 12:30 Height 5 ft 1 in Weight: 240 lb Weight in Pounds 240.[address]: Arnav Assistive device None used: Pre-test Oxygen Delivery Room Air Method Pulse Ox (%) 98 Pulse Rate (60-100 95 beats/min) Dyspnea Wilder Scale ( 2 0-10) Exertion Wilder Scale 6 (6-20) 1st minute Oxygen Delivery Room Air Method Pulse Ox (%) 95 Pulse Rate (60-100 113 H beats/min) 2nd minute Oxygen Delivery Room Air Method Pulse Ox (%) 95 Pulse Rate (60-100 122 H beats/min) 3rd minute Oxygen Delivery Room Air Method Pulse Ox (%) 95 Pulse Rate (60-100 127 H beats/min) 4th minute Oxygen Delivery Room Air Method Pulse Ox (%) 96 Pulse Rate (60-100 131 H beats/min) 5th minute Oxygen Delivery Room Air Method Pulse Ox (%) 97 Pulse Rate (60-100 130 H beats/min) 6th minute Oxygen Delivery Room Air Method Pulse Ox (%) 93 Pulse Rate (60-100 134 H beats/min) Post-test Oxygen Delivery Room Air Method Pulse Ox (%) 98 Pulse Rate (60-100 111 H beats/min) Dyspnea Wilder Scale ( 3 0-10) Exertion Wilder Scale 12 (6-20) Full Laps Walked 16 Partial Lap, Number 0 of Tiles Walked Total Distance 944 Walked (ft) Interpretation Interpretation: The patient ambulated 944 feet over the course of 6 minutes beginning on room air without assistivedevices. Pretesting oxygen saturation was noted to be 98%on room air. With ambulation, the penelope oxygen saturation was 93%. This represents a significant exertional oxygen desaturation, consistent with a pulmonary limitation to exercise tolerance. Recommendations Recommendations: There is no indication for the use of supplemental oxygen at this time. However, close interval follow-up is recommended, given the degree of oxygen desaturation noted during this study. 10/14/24 1114 O> Date _ Alberto Qiu DO CC: ~ Date Dictated: 10/14/24 1114 Date Transcribed: 10/14/241113 Supplier Quality Engineering Manager: Dr. Alberto Qiu, Signed [facility]03-12-2025 Radiology Diagnostic study note [facility] Imaging Services [address] [place] [address] Foot min 3 Views MR#: [id number] Acct: [id number] Name: LEROY TYLER Rep #: [id number] : 1965 F 58 From: Robert Balderas MD PCP: DARLING KWAN Status: REG ER Study:Foot min 3 Views Date of Exam: 07/15 Exam# [id number] Ordering Dr: Margarita Mercado DO PROCEDURE: FOOT MIN 3 VIEWS REASON FOR EXAM: PAIN TECHNIQUE: 3 view(s) of left foot COMPARISON: None. FINDINGS: LEFT FOOT: No fracture or dislocation. Joint space narrowing seen at the medial aspect of the 1st metatarsophalangeal joint. No erosive change, sclerosis or periosteal reaction identified. Soft tissue swelling at the forefoot. Talonavicular and midfoot osteoarthrosis. Enthesophyte formation at the plantar more than the Achilles surfaces of the calcaneus. RAD/Foot min 3 Views IMPRESSION: No fracture or dislocation. Joint space narrowing seen at the medial aspect of the 1st metatarsophalangeal joint. No erosive change, sclerosis or periosteal reaction identified. Soft tissue swelling at the forefoot. Midfoot osteoarthrosis. Enthesophyte formation of the calcaneus as above. Reading Location: [id number] CC: Steven Mercado DO; DARLING KWAN ~ Supplier Quality Engineering Manager: Signed [facility]03-11-2025 Telephone encounter Note* Telephone Encounter - Rosa Cardenas RN - 09/29/2024 11:49 PM EDT Reason for Call: Pt c/o left foot pain she rates 9/10 and is diabetic. Outcome: Disposition- Go to ED now. Pt agreeable to go to [place] ED. Reason for Disposition SEVERE pain Diabetes mellitus Answer Assessment - Initial Assessment Questions 1. SYMPTOM: pt is diabetic and c/o pain in left foot. 2. LOCATION: top and side of left foot and radiates up her shins. 3. APPEARANCE: pt states the veins are popping out more. Denies redness, swelling or any break in the skin. 4. ONSET: started today. 5. PAIN: Pain: Location? Top of left foot and left side small toes. Rate severity of pain? Shooting jabbing pain she rates a 9/10. Cannot sleep. Any pain relief measures tried? Tried massage and lanocaine and Tylenol without relief. Effectiveness of pain relief measures? No relief. 6. CAUSE: unsure but possibly neuropathy pain? 7. BLOOD GLUCOSE: 190 blood sugar today. 8. USUAL RANGE: usually around 190, sometimes higher and sometimes lower. 9. OTHER SYMPTOMS: denies fever. 10. : na. Protocols used: Foot [id number], Diabetes - Foot Problems and Jbqmrzawa-CMDRX-DH [facility]03-11-2025 Miscellaneous Notes* Telephone Encounter - Rosa Cardenas RN - 09/29/2024 11:49 PM EDT Reason for Call: Pt c/o left foot pain she rates 9/10 and is diabetic. Outcome: Disposition- Go to ED now. Pt agreeable to go to [place] ED. Reason for Disposition SEVERE pain Diabetes mellitus Answer Assessment - Initial Assessment Questions 1. SYMPTOM: pt is diabetic and c/o pain in left foot. 2. LOCATION: top and side of left foot and radiates up her shins. 3. APPEARANCE: pt states the veins are popping out more. Denies redness, swelling or any break in the skin. 4. ONSET: started today. 5. PAIN: Pain: Location? Top of left foot and left side small toes. Rate severity of pain? Shooting jabbing pain she rates a 9/10. Cannot sleep. Any pain relief measures tried? Tried massage and lanocaine and Tylenol without relief. Effectiveness of pain relief measures? No relief. 6. CAUSE: unsure but possibly neuropathy pain? 7. BLOOD GLUCOSE: 190 blood sugar today. 8. USUAL RANGE: usually around 190, sometimes higher and sometimes lower. 9. OTHER SYMPTOMS: denies fever. 10. : na. Protocols used: Foot Tlzb-OCQXZ-IS, Diabetes - Foot Problems and Vyehclbzn-YLXKS-YG [facility] [facility] Telephone encounter Note * Telephone Encounter - Sridevi Connors RN - 09/25/2024 3:56 PM EST 09/25/2024 3:56 PM RN called patient to let her know the labs were reviewed by Thomas Montero CNP and said this: Hgb mild improvement from 2024 continue iron supplements Office number provided for call back should she have any questions or concerns. --Sridevi Connors RN [facility]03-07-2025 Miscellaneous Notes* Telephone Encounter - Sridevi Connors RN - 09/25/2024 3:56 PM EST 09/25/2024 3:56 PM RN called patient to let her know the labs were reviewed by Thomas Montero CNP and said this: Hgb mild improvement from 2024 continue iron supplements Office number provided for call back should she have any questions or concerns. --Sridevi Connors RN * Telephone Encounter - ELMER Jaquez - 09/25/2024 12:02 PM EST Hgb mild improvement from 2024 continue iron supplements * Telephone Encounter - Sridevi Connors RN - 09/25/2024 11:42 AM EST Images from the original note were not included. 09/25/2024 11:42 AM Received labs via fax from [facility]: --Sridevi Connors RN * Telephone Encounter - Bhupinder Huizar RN - 09/23/2024 2:23 PM EST Called and spoke to patient who was unaware that she needed lab order this week. Stated that she will be able to go to [facility] next week to get lab work completed. Reminder in place to follow up with labs next week sometime * Telephone Encounter - Luz Maria Escudero - 09/23/2024 1:59 PM EST Patient returning call. She is requesting a call back. * Telephone Encounter - Jaziel Christy RN - 09/23/2024 12:30 PM EST Called patient to follow up on labs locally, upon chart review a repeat CBC was ordered to be done locally. No answer, LVM with call back number Awaiting pt call * Telephone Encounter - Supriya Stone RN - 09/21/2024 8:12 AM EST ----- Message from ALFONZO Epps sent at 08/27/2024 3:25 PM EST ----- Pt was seen in clinic 08/27/2024 - needs to have lab work locally on 09/21 or 09/22/2024 Local lab slip provided. Please ensure we received results. Thank you! ALFONZO [place] [facility] Telephone encounter Note* Telephone Encounter - ELMER Jaquez - 09/25/2024 12:02 PM EST Hgb mild improvement from 2024 continue iron supplements [facility] Work Phone: 1(628) 746-707103-07-2025 Telephone encounter Note* Telephone Encounter - Sridevi Connors RN - 09/25/2024 11:42 AM EST Images from the original note were not included. 09/25/2024 11:42 AM Received labs via fax from [facility]: --Sridevi Connors RN [facility]03-05-2025 Telephone encounter Note* Telephone Encounter - Bhupinder Huizar RN - 09/23/2024 2:23 PM EST Called and spoke to patient who was unaware that she needed lab order this week. Stated that she will be able to go to [facility] next week to get lab work completed. Reminder in place to follow up with labs next week sometime [facility]03-05-2025 Telephone encounter Note* Telephone Encounter - Luz Maria Escudero - 09/23/2024 1:59 PM EST Patient returning call. She is requesting a call back. [facility]03-05-2025 Telephone encounter Note* Telephone Encounter - Jaziel Christy RN - 09/23/2024 12:30 PM EST Called patient to follow up on labs locally, upon chart review a repeat CBC was ordered to be done locally. No answer, LVM with call back number Awaiting pt call [facility]03-03-2025 Telephone encounter Note* Telephone Encounter - Supriya Stone RN - 09/21/2024 8:12 AM EST ----- Message from ALFONZO Epps sent at 08/27/2024 3:25 PM EST ----- Pt was seen in clinic 08/27/2024 - needs to have lab work locally on 09/21 or 09/22/2024 Local lab slip provided. Please ensure we received results. Thank you! ALFONZO [place] [facility]02-14-2025 Evaluation note* Diagnosis Onset Date Resolution Status Admit Date Asthma acute September 04, 2024 12:37pm Hypoxemia acute September 04, 2024 12:37pm Obstructive sleep apnea acute F ebruary 2024 12:37pm Diabetes chronic September 24 1:02pm High triglycerides chronic September 24, 2024 1:02pm Hypertension chronic September 24, 2 025 1:02pm Hypothyroidism chronic September 24, 2024 1:02pm Neuropathy chronic September 24 1:02pm Obesity chronic September 24 1:02pm Asthma acute October 30 12:32pm Hypoxemia acute October 30 12:32pm Obstructive sleep apnea acute A pril 2024 12:32pm [facility] Work Phone: 1(675) 486-344702-13-2025 Nurse Surgical operation note* Boubacar Herrera RN - 09/03/2024 2:50 PM EST Discharge criteria met. Discharge instructions reviewed including possible side effects from procedure, side effects from medication, restrictions regarding driving, activity, and alcohol consumptionfor the remainder of the day. Reviewed procedure and findings. Provided contact number for questions or concerns. ProVation report provided. Understanding verbalized. Transported to waiting area - ambulatory - accompanied by her friends (marine engine driver). [facility]02-13-2025 Nurse Note* Boubacar Herrera RN - 09/03/2024 2:50 PM EST Discharge criteria met. Discharge instructions reviewed including possible side effects from procedure, side effects from medication, restrictions regarding driving, activity, and alcohol consumptionfor the remainder of the day. Reviewed procedure and findings. Provided contact number for questions or concerns. ProVation report provided. Understanding verbalized. Transported to waiting area - ambulatory - accompanied by her friends (marine engine driver). documented in this [facility]-13[facility] History and physical note* Velasquez Berry MD - 09/03/2024 1:00 PM EST ENDOSCOPIC PREPROCEDURE HISTORY AND PHYSICAL HISTORY OF PRESENT ILLNESS: Leroy Tyler is a 58 y.o. female seen in the preoprocedure area at [facility]. 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 Index EGD 03/2024 with R1 resection of a 31 mm polyp in the cardia, path showed WHO grade 2 NET. Follow up EGD/EUS 06/2024 showed a 1.5 cm gastric cardia polyp and two 1 cm gastric antral polyps, removed. One abnormal LN was seen and biopsied. LN path showed well differentiated NET. Antral polyp path showed well differentiated NET. Biopsy of prior EMR site showed residual NET. PAST MEDICAL HISTORY: Past Medical History: Diagnosis Date Anxiety Arthritis Cirrhosis of liver Diabetes mellitus GERD (gastroesophageal reflux disease) History of cancer Hyperlipidemia Hyperthyroidism Liver disease KODI (obstructive sleep apnea) Renal disease SURGICAL HISTORY: Past Surgical History: Procedure Laterality Date COLONOSCOPY DIAGNOSTIC 2017 x 2 DILATION AND CURETTAGE LAP CHOLECYSTECTOMY [facility] MEDICATIONS: Current Outpatient Medications Medication Instructions Albuterol 108 (90 Base) MCG/ACT Aero Soln inhaler 1 puff, Inhalation, EVERY 6 HOURS NEEDED Atorvastatin (LIPITOR) 20 mg, Oral, DAILY diclofenac EC (VOLTAREN) 75 mg, Oral, 2 TIMES DAILY ferrous sulfate 325 mg, Oral, EVERY OTHER DAY FLUoxetine (PROZAC) 40 mg, DAILY fluticasone 50 MCG/ACT Suspension nasal spray 2 sprays, Nasal, DAILY Levonorgestrel (Mirena, 52 MG,) 20 MCG/DAY 1 Each, Intrauterine Levothyroxine (SYNTHROID) 200 mcg, DAILY NovoLOG FlexPen 100 UNIT/ML Solution Pen-injector injection 3 TIMES DAILY BEFORE MEALS oxygen gas 2 L, DIRECTED Pantoprazole (PROTONIX) 40 mg, Oral, 2 TIMES DAILY Trulicity 0.75 mg, WEEKLY urea 10 % Cream 1 Application, Topical, 2 TIMES DAILY NEEDED, Apply to affected area. Current Outpatient Medications: FLUoxetine 40 MG capsule, Take 1 capsule by mouth daily., Disp: , Rfl: Levothyroxine 200 MCG tablet, Take 1 tablet by mouth daily. 1.5 on Sundays, Disp: , Rfl: NovoLOG FlexPen 100 UNIT/ML Solution Pen-injector injection, Inject under the skin 3 times daily (take before meals). Sliding scale, Disp: , Rfl: oxygen gas, Inhale 2 L As directed. Please provide: small portable tanks This order certifies that this patient is under my care and that I, or a Nurse Practitioner or Physician's Auger Mill Operator had a [id number] Encounter with them. Based upon those findings, the equipment/supplies listed above are medically necessary., Disp: , Rfl: Pantoprazole [address] tablet DR, Take 1 tablet by mouth 2 times daily., Disp: 60 tablet, Rfl: 2 Albuterol 108 (90 Base) MCG/ACT Aero Soln inhaler, Inhale 1 puff every 6 hours as needed for Shortness of Breath., Disp: , Rfl: Atorvastatin 20 MG tablet, Take 1 tablet by mouth daily., Disp: , Rfl: diclofenac EC [address] tablet, Take 1 tablet by mouth 2 times daily., Disp: , Rfl: ferrous sulfate 325 (65 Fe) MG tablet, Take 1 tablet by mouth every other day., Disp: 30 tablet, Rfl: 1 fluticasone 50 MCG/ACT Suspension nasal spray, 2 sprays by Nasal route daily., Disp: , Rfl: Levonorgestrel (Mirena, 52 MG,) 20 MCG/DAY, 1 Intra Uterine Device by Intrauterine route., Disp: , Rfl: Trulicity 0.75 MG/0.5ML Solution Auto-injector injection, 0.5 mL once a week., Disp: , Rfl: urea 10 % Cream, Apply 1 Application topically 2 times daily as needed. Apply to affected area., Disp: , Rfl: ALLERGIES: Allergies Allergen Reactions Bactrim [Sulfamethoxazole-Trimethoprim] Blisters Codeine Swelling Penicillins Rash VITAL SIGNS: Vitals: 09/03/24 1208 Temp: 98.1 degrees F (36.7 degrees C) TempSrc: Infrared Height: 1.549 m (5' 1) PREPROCEDURE PHYSICAL EXAM: GENERAL: Well appearing female, in no acute distress HEART: Regular rate PULMONARY: Normal respiratory effort and rate, no respiratory distress, no wheezes, no accessory muscle use, or nasal flaring, ABDOMEN: Abdomen soft, nontender ASSESSMENT: Leroy Tyler is a 58 y.o. female is ready for the planned procedure. ASA Class: ASA 3 - Patient with moderate systemic disease with functional limitations PLAN: Will plan to proceed with using Monitored Anesthesia Care. Velasquez Berry MD, MS Tool Room Attendanttelecom engineer Division of Gastroenterology, Hepatology, and Nutrition [facility] Work Phone: 1(491) 209-739502-13-2025 History and physical note* Velasquez Berry MD - 09/03/2024 1:00 PM EST ENDOSCOPIC PREPROCEDURE HISTORY AND PHYSICAL HISTORY OF PRESENT ILLNESS: Leroy Tyler is a 58 y.o. female seen in the preoprocedure area at [facility]. 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 Index EGD 03/2024 with R1 resection of a 31 mm polyp in the cardia, path showed WHO grade 2 NET. Follow up EGD/EUS 06/2024 showed a 1.5 cm gastric cardia polyp and two 1 cm gastric antral polyps, removed. One abnormal LN was seen and biopsied. LN path showed well differentiated NET. Antral polyp path showed well differentiated NET. Biopsy of prior EMR site showed residual NET. PAST MEDICAL HISTORY: Past Medical History: Diagnosis Date Anxiety Arthritis Cirrhosis of liver Diabetes mellitus GERD (gastroesophageal reflux disease) History of cancer Hyperlipidemia Hyperthyroidism Liver disease KODI (obstructive sleep apnea) Renal disease SURGICAL HISTORY: Past Surgical History: Procedure Laterality Date COLONOSCOPY DIAGNOSTIC 2018 x 2 DILATION AND CURETTAGE LAP CHOLECYSTECTOMY [facility] MEDICATIONS: Current Outpatient Medications Medication Instructions Albuterol 108 (90 Base) MCG/ACT Aero Soln inhaler 1 puff, Inhalation, EVERY 6 HOURS NEEDED Atorvastatin (LIPITOR) 20 mg, Oral, DAILY diclofenac EC (VOLTAREN) 75 mg, Oral, 2 TIMES DAILY ferrous sulfate 325 mg, Oral, EVERY OTHER DAY FLUoxetine (PROZAC) 40 mg, DAILY fluticasone 50 MCG/ACT Suspension nasal spray 2 sprays, Nasal, DAILY Levonorgestrel (Mirena, 52 MG,) 20 MCG/DAY 1 Each, Intrauterine Levothyroxine (SYNTHROID) 200 mcg, DAILY NovoLOG FlexPen 100 UNIT/ML Solution Pen-injector injection 3 TIMES DAILY BEFORE MEALS oxygen gas 2 L, DIRECTED Pantoprazole (PROTONIX) 40 mg, Oral, 2 TIMES DAILY Trulicity 0.75 mg, WEEKLY urea 10 % Cream 1 Application, Topical, 2 TIMES DAILY NEEDED, Apply to affected area. Current Outpatient Medications: FLUoxetine 40 MG capsule, Take 1 capsule by mouth daily., Disp: , Rfl: Levothyroxine 200 MCG tablet, Take 1 tablet by mouth daily. 1.5 on Sundays, Disp: , Rfl: NovoLOG FlexPen 100 UNIT/ML Solution Pen-injector injection, Inject under the skin 3 times daily (take before meals). Sliding scale, Disp: , Rfl: oxygen gas, Inhale 2 L As directed. Please provide: small portable tanks This order certifies that this patient is under my care and that I, or a Nurse Practitioner or Physician's Auger Mill Operator had a [id number]-[id number] Encounter with them. Based upon those findings, the equipment/supplies listed above are medically necessary., Disp: , Rfl: Pantoprazole [address] tablet DR, Take 1 tablet by mouth 2 times daily., Disp: 60 tablet, Rfl: 2 Albuterol 108 (90 Base) MCG/ACT Aero Soln inhaler, Inhale 1 puff every 6 hours as needed for Shortness of Breath., Disp: , Rfl: Atorvastatin 20 MG tablet, Take 1 tablet by mouth daily., Disp: , Rfl: diclofenac EC [address] tablet, Take 1 tablet by mouth 2 times daily., Disp: , Rfl: ferrous sulfate 325 (65 Fe) MG tablet, Take 1 tablet by mouth every other day., Disp: 30 tablet, Rfl: 1 fluticasone 50 MCG/ACT Suspension nasal spray, 2 sprays by Nasal route daily., Disp: , Rfl: Levonorgestrel (Mirena, 52 MG,) 20 MCG/DAY, 1 Intra Uterine Device by Intrauterine route., Disp: , Rfl: Trulicity 0.75 MG/0.5ML Solution Auto-injector injection, 0.5 mL once a week., Disp: , Rfl: urea 10 % Cream, Apply 1 Application topically 2 times daily as needed. Apply to affected area., Disp: , Rfl: ALLERGIES: Allergies Allergen Reactions Bactrim [Sulfamethoxazole-Trimethoprim] Blisters Codeine Swelling Penicillins Rash VITAL SIGNS: Vitals: 09/03/24 1208 Temp: 98.1 degrees F (36.7 degrees C) TempSrc: Infrared Height: 1.549 m (5' 1) PREPROCEDURE PHYSICAL EXAM: GENERAL: Well appearing female, in no acute distress HEART: Regular rate PULMONARY: Normal respiratory effort and rate, no respiratory distress, no wheezes, no accessory muscle use, or nasal flaring, ABDOMEN: Abdomen soft, nontender ASSESSMENT: Leroy Tyler is a 58 y.o. female is ready for the planned procedure. ASA Class: ASA 3 - Patient with moderate systemic disease with functional limitations PLAN: Will plan to proceed with using Monitored Anesthesia Care. Velasquez Berry MD, MS Tool Room Attendanttelecom engineer Division of Gastroenterology, Hepatology, and Nutrition [facility] documented [facility] Miscellaneous Notes* Nursing Notes - Sylvie Rosenberg RN - 09/03/2024 1:00 PM EST Blood glucose 371 in pre-op. Dr. Gupta aware and ordered 8 units insulin Humalog which was administered at 1245. Per whitney Perez for patient to go into her procedure at 1300 and have the blood glucose re-checked at 1345. documented in this [facility]02-13-2025 Nurse Note* Nursing Notes - Sylvie Rosenberg RN - 09/03/2024 1:00 PM EST Blood glucose 371 in pre-op. Dr. Gupta aware and ordered 8 units insulin Humalog which was administered at 1245. Per whitney Perez for patient to go into her procedure at 1300 and have the blood glucose re-checked at 1345. [facility] Note. MICRO - Microbiology PROCEDURE: Affirm Pathogens DNA Direct Probe [*1] SOURCE: Vaginal Fluid BODY SITE: Vagina COLLECTED DATE/TIME: 09/02/2024 16:25 EST RECEIVED DATE/TIME: 09/02/2024 19:20 EST START DATE/TIME: 09/02/2024 19:20 EST FREE TEXT SOURCE: FINAL REPORTS Final Report [] Verified Date/Time/Personnel: 09/03/2024 09:08 EST Trichomonas vaginalis DNA Probe Negative Gardnerella vaginalis DNA Probe Negative Judie species DNA Probe Positive Performing Locations *1: This test was performed at: [address], [id number]- , [facility]02-06-2025 History of Present illness Narrative* Scott Berrios MD, MPH - 08/27/2024 3:00 PM EST HISTORY OF PRESENT ILLNESS: Ms. Leroy Tyler is a 58 y.o. 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 diagnosed on 04/04/24. She was referred here toendocrine oncology clinic for further management. She was in usual state of health until 03/2024 when she presented to OSH with ozzy and SOB: 04/03/2024 CT abd/pelvis COMPARISON:Prior study dated: 03/04/2024 IMPRESSION: Small nonobstructing stones in the L kidney. Hepatosplenomegaly. 04/03/2024 CTA chest No central PE. No evidence of aortic dissection. Mild GGO. No focal consolidation. Hepatosplenomegaly. 04/04/24: EGD The examined esophagus was normal. Multiple 100 mm sessile polyps with no bleeding and no stigmata of recent bleeding were found in the GJ junction. In the cardia, in the gastric body, on the greatercurvature of the stomach and on the lesson curvature of the stomach. Biopsies were taken with a cold forcepts for histology. A signle 3.1cm pedunculated and sessie polyp with severe bleeding and stigmata of recent bleeding was found in the cardia. Area was successfully injected with 2epinephrine and tattoes. The polyp was removed with a saline injection-lift technique using a cold snare. Resection and retrieval were complete. No gross lesions were noted in the first portion of the duodenum [facility] read of pathology: A. 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 Tumor is present at both lateral margins and at the deep margin. The depth of invasion can not be assessed. No lymphovascular invasion identified. No perineural invasion is identified. Proliferation index as per Ki67 IHC is approximately 7% Lesion is positive for neuroendocrine markers chromogranin, CD56 and synaptophysin as well as for keratin AE1/AE3 (Focal) CK8 and CDX2; and it is negative for CK7. CK8 and CK20. 06/23/2024: EGD and Upper EUS (at [facility]) - Normal esophagus. - A single gastric polyp (1.5cm in the cardia). Resected and retrieved. Clip (MR conditional) was placed. Clip labor representative: [employer]. - An endoclip was found in the stomach. Removal was successful. - Two gastric polyps (0.9-1.1 cm in the gastric antrum). Resected and retrieved. Clips (MR conditional) were placed. Clip labor representative: [employer]. - 1.5cm post mucosectomy scar in the gastric body. Clips (MR conditional) were placed. Clip labor representative: [employer]. - A hypoechoic irregular mass was identified endosonographically in the body of the stomach. The mass measured 6 mm by 5 mm in maximal cross-sectional diameter. There was sonographic evidence suggesting invasion into the deep mucosa (Layer 2). A mass was found in the body of the stomach. A tissue diagnosis was obtained prior to this exam. - One abnormal lymph node (1.4x1.2 cm) was visualized in the peripancreatic region. Tissue was obtained from this exam, and results are pending. However, the endosonographic appearance is benign inflammatory changes. Fine needle biopsy performed. - Multiple 3 to 8 mm sessile polyps with no bleeding and no stigmata of recent bleeding were found in the stomach Per my discussion with the advanced endoscopist, patient has several sessile gastric polyps that were not removed. Pathologic Diagnosis A. Lymph node, peripancreatic, fine needle biopsy: Metastatic neuroendocrine tumor, well differentiated. Tumor is positive for neuroendocrine markers chromogranin and synaptophysin Proliferation index as measured with Ki 67 is 8% B. 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 Tumor is positive for neuroendocrine markers chromogranin and synaptophysin Proliferation index as measured with Ki 67 is 5% C. Stomach, distal, polyps x2, biopsy: Well differentiated neuroendocrine tumors, 5 and 6 mm WHO grade 2 Both appear to extend to the base of the biopsy. Tumors are positive for neuroendocrine markers chromogranin and synaptophysin Proliferation index as measured with Ki 67 is approximately 4% D. Stomach, cardia, polyp, biopsy: Cardiac type hyperplastic polyp with intestinal metaplasia. No evidence of epithelial dysplasia. No evidence of neuroendocrine tumor. Neuroendocrine markers highlight only focal linear neuroendocrine cell hyperplasia. Ki 67 is unremarkable. 07/29/24: Colonoscopy : prep was inadequate. Will request procedure note. Was advised repeat colonoscopy in 6 months. Interim History Chief Complaint Patient presents with Follow-up New Patient follow up Has been doing ok since last visit Results Labs and scans completed on 08/14/24 Leroy Tyler is present today for a follow up evaluation. Since her last visit on 07/30/24 she hasbeen feeling well. She has been off pantoprazole since 07/31/24 (she has otherwise been on 40mg BID of pantoprazole since 03/2024). She reports intermittent GERD off pantoprazole. She has constipation and reports she sometimes has abdominal cramps right after she eats and it improves with a bowel movement. She is on continuous O2: 2 L/min since Feb 2024 (reports she was dx with COVID19 then). ECOG PS: 1 REVIEW OF SYSTEMS: Fatigue: Fatigue relieved by rest Nausea: Absent or within normal limits Vomiting: Absent or within normal limits Anorexia: Absent or within normal limits Diarrhea: Absent or within normal limits Constipation: Occasional or intermittent symptoms OR occasional use of stool softeners, laxatives, dietary modification, or enema Peripheral Motor Neuropathy: Absent or within normal limits Depression: Mild depressive symptoms Dyspnea: Absent or within normal limits Rash Maculo-Papular: Absent or within normal limits Pain: Mild pain Fever: Absent or within normal limits Localized Edema: Absent or within normal limits is allergic to bactrim [sulfamethoxazole-trimethoprim], codeine, and penicillins. is allergic to bactrim [sulfamethoxazole-trimethoprim], codeine, and penicillins. Allergies Allergen Reactions Bactrim [Sulfamethoxazole-Trimethoprim] Blisters Codeine Swelling Penicillins Rash Current Outpatient Medications Medication Sig Dispense Refill Albuterol 108 (90 Base) MCG/ACT Aero Soln inhaler Inhale 1 puff every 6 hours as needed for Shortness of Breath. Atorvastatin 20 MG tablet Take 1 tablet by mouth daily. diclofenac EC [address] tablet Take 1 tablet by mouth 2 times daily. ferrous sulfate 325 (65 Fe) MG Tab DR tablet DR Take 1 tablet by mouth 3 times daily with meals. FLUoxetine 40 MG capsule Take 1 capsule by mouth daily. fluticasone 50 MCG/ACT Suspension nasal spray 2 sprays by Nasal route daily. Levonorgestrel (Mirena, 52 MG,) 20 MCG/DAY 1 Intra Uterine Device by Intrauterine route. Levothyroxine 200 MCG tablet Take 1 tablet by mouth daily. 1.5 on Sundays NovoLOG FlexPen 100 UNIT/ML Solution Pen-injector injection Inject under the skin 3 times daily (take before meals). Sliding scale oxygen gas Inhale 2 L As directed. Please provide: small portable tanks This order certifies that this patient is under my care and that I, or a Nurse Practitioner or Physician's Auger Mill Operator had a [id number] Encounter with them. Based upon those findings, the equipment/supplies listed above are medically necessary. Pantoprazole [address] tablet DR Take 1 tablet by mouth 2 times daily. 60 tablet 2 Trulicity 0.75 MG/0.5ML Solution Auto-injector injection 0.5 mL once a week. urea 10 % Cream Apply 1 Application topically 2 times daily as needed. Apply to affected area. No current facility-administered medications for this visit. Past Medical History: Diagnosis Date Anxiety Arthritis Cirrhosis of liver Diabetes mellitus GERD (gastroesophageal reflux disease) History of cancer Hyperlipidemia Hyperthyroidism Liver disease KODI (obstructive sleep apnea) Renal disease Past Surgical History: Procedure Laterality Date COLONOSCOPY DIAGNOSTIC 2017 x 2 DILATION AND CURETTAGE LAP CHOLECYSTECTOMY [facility] family history includes Breast Cancer (age of onset: 63) in her mother; Coronary Artery Disease in her maternal grandfather; Lung Cancer (age of onset: 53) in her father; Myocardial Infarction in hermaternal grandfather; Thyroid Disease in her maternal grandmother. Family Hx: Mom had breast cancer in her 60s, dad had kidney cancer in his 50s. She has a younger brother who is healthy. No family hx of neuroendocrine cancer. No family hx s/o MEN1. Social Hx: Single. Lives by herself. 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 Used to smoke cigarettes (1 pack per week x 3-4 years, quit in 2000), used to drink alcohol (7 bottles of mixed alcoholic drinks over the weekends: from her teens through 30s. Quit drinking in 2000. Smoked marijuana (in her teens), snorted cocaine (in her 40s)-, and methamphetamine (in her 40s. Quit in ~2018. PHYSICAL EXAMINATION: The patient is obese, and in no acute distress. Blood pressure 142/67, pulse 106, temperature 97.3 F (36.3 C), temperature source Infrared, resp. rate 18, height 1.549 m (5' 0.98), weight 109.5 kg (241 lb 8 oz), SpO2 96%.. Patient is alert and oriented to time, place, and person. HEENT exam: anicteric sclera, moist oral mucosa, no mouth sores. LUNGS: Clear to auscultation. No crackles/rhonchi/wheezes. HEART: S1/S2 normal, no murmurs, rubs or gallops. ABDOMEN: Soft, non tender, non distended. Bowel sounds normoactive. No hepatomegaly. No palpable masses. EXTREMITIES: No cyanosis, clubbing, or edema. SKIN: no rash. LYMPH NODES: no lymphadenopathy. IMAGING STUDIES: Imaging results were reviewed and discussed with the patient at length today. NUC PET HEAD TO THIGH, 07/30/2024 COMPARISON: No prior studies available for comparison. IMPRESSION: Intensely avid gastrohepatic node, suspicious for metastatic node. No evidence of other tracer avid lesions. CT ABDOMEN/PELVIS WITH AND WITHOUT CONTRAST, 08/14/24 COMPARISON: 9 PET/CT 07/30/[address] abdomen/pelvis 04/03/2024 IMPRESSION: 1. 3 mm stone in the proximal left ureter without significant hydronephrosis. This is similar to PET CT however is moved into the ureter since the March 2024 exam. 2. Hepatosplenomegaly. 3. Mildly enlarged gastrohepatic lymph node LABS: CMP Lab Results Component Value Date SODIUM 133 (L) 08/14/2024 POTASSIUM 4.2 08/14/2024 CHLORIDE 95 (L) 08/14/2024 CO2 31 08/14/2024 BUN 12 08/14/2024 CREATSERUM 0.59 08/14/2024 GLUCOSE 210 (H) 08/14/2024 CALCIUM 9.2 08/14/2024 ALT 38 08/14/2024 AST 54 (H) 08/14/2024 ALKPHOS 114 08/14/2024 BILITOTAL 0.5 08/14/2024 ALBUMIN 3.5 08/14/2024 CBC Lab Results Component Value Date WBC 7.57 08/14/2024 HGB 10.5 (L) 08/14/2024 HCT 35.8 08/14/2024 PLATELET 223 08/14/2024 MCV 79.4 (L) 08/14/2024 TUMOR MARKERS Lab Results Component Value Date CALCITONIN <5.00 08/14/2024 GASTRIN 537 (H) 08/14/2024 GASTRIN 591 (H) 05/07/2024 Lab results have been reviewed and discussed with the patient. IMPRESSION & PLAN: Ms. Leroy Tyler is a 58 y.o. 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 Gastric neuroendocrine tumor: -Clinically doing okay. Has been on pantoprazole since 07/31/24 and noticed intermittent GERD. -Gastrin level off PPI is elevated which is consistent with type 1 gastric carcinoid -While regional LN metastases is not typical of type 1 gastric carcinoid, it has been reported. -Patient's clinical picture does not fit ZES (given the tumor location, and the absence of sequelaeof gastric acid hypersecretion: such as ulcers) or PPI associated gastric carcinoid (As she has been on PPI only since 03/2024). -CT A/P shows the enlarged gastrohepatic LN and other borderline LNs. The gastrohepatic LN is also avid on Ga PET. This is likely the same LN that is referred to as peripancreatic on prior EGD/EUS.There is also evidence of hepatosplenomegaly and a 3 mm L ureteral stone. - I reviewed serial CT A/P since 09/2020. The gastrohepatic LN has slowly progressively enlarged in size and appears more or less stable since 02/2024 -I recommended continued active surveillance - She has a follow-up EGD on 09/03/24. Will request GI to check gastric pH. - RTC in approx 4 mo with labs/scans prior. I recommended keeping PPI on hold and repeating labs (including tumor markers - gastrin, calcitonin, pancreatic polypeptide, chromogranin A) in 2 weeks. If gastrin level returns normal, this would beconsistent with a type 3 gastric carcinoid, otherwise, it would be a type 1. Will also check routine labs, IF Ab, anti-parietal cell Ab, Vit B12, MMA. PTH level (see below). Nonobstructive 3mm L ureteral stone: on CT A/P 08/14/24. Advised to follow-up with local urologist. Patient does have a hx of renal stones. PTH level 07/2024 wnl. Hypothyroidism: on levothyroxine GERD: Advised to resume pantoprazole at 40mg/day Microcytic anemia: Hgb has downtrended since 04/2024. Patient denies any hematochezia/ozzy. Last colonoscopy in 07/2024 was reportedly a poor prep and she was advised repeat colonoscopy in 6 mo. Will request colonoscopy report. Will check iron studies today and repeat CBC as well. Documented by Edward Her Dr. Konda on 08/27/2024 at 2:45 PM. All medical record entries made by the Taina were at my direction and personally dictated by me, Scott Berrios MD, MPH . I have reviewed and edited the chart and agree that the record accurately reflects my personal performance of the history, physical exam, assessment and plan. I have also personally directed, reviewed, and agree with the discharge instructions. documented in this [facility]02-06-2025 History of Present illness Narrative* Scott Berrios MD, MPH - 08/27/2024 3:00 PM EST HISTORY OF PRESENT ILLNESS: Ms. Leroy Tyler is a 58 y.o. 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 diagnosed on 04/04/24. She was referred here toendocrine oncology clinic for further management. She was in usual state of health until 03/2024 when she presented to OSH with ozzy and SOB: 04/03/2024 CT abd/pelvis COMPARISON:Prior study dated: 03/04/2024 IMPRESSION: Small nonobstructing stones in the L kidney. Hepatosplenomegaly. 04/03/2024 CTA chest No central PE. No evidence of aortic dissection. Mild GGO. No focal consolidation. Hepatosplenomegaly. 04/04/24: EGD The examined esophagus was normal. Multiple 100 mm sessile polyps with no bleeding and no stigmata of recent bleeding were found in the GJ junction. In the cardia, in the gastric body, on the greatercurvature of the stomach and on the lesson curvature of the stomach. Biopsies were taken with a cold forcepts for histology. A signle 3.1cm pedunculated and sessie polyp with severe bleeding and stigmata of recent bleeding was found in the cardia. Area was successfully injected with 2epinephrine and tattoes. The polyp was removed with a saline injection-lift technique using a cold snare. Resection and retrieval were complete. No gross lesions were noted in the first portion of the duodenum [facility] read of pathology: A. 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 Tumor is present at both lateral margins and at the deep margin. The depth of invasion can not be assessed. No lymphovascular invasion identified. No perineural invasion is identified. Proliferation index as per Ki67 IHC is approximately 7% Lesion is positive for neuroendocrine markers chromogranin, CD56 and synaptophysin as well as for keratin AE1/AE3 (Focal) CK8 and CDX2; and it is negative for CK7. CK8 and CK20. 06/23/2024: EGD and Upper EUS (at [facility]) - Normal esophagus. - A single gastric polyp (1.5cm in the cardia). Resected and retrieved. Clip (MR conditional) was placed. Clip labor representative: [employer]. - An endoclip was found in the stomach. Removal was successful. - Two gastric polyps (0.9-1.1 cm in the gastric antrum). Resected and retrieved. Clips (MR conditional) were placed. Clip labor representative: [employer]. - 1.5cm post mucosectomy scar in the gastric body. Clips (MR conditional) were placed. Clip labor representative: [employer]. - A hypoechoic irregular mass was identified endosonographically in the body of the stomach. The mass measured 6 mm by 5 mm in maximal cross-sectional diameter. There was sonographic evidence suggesting invasion into the deep mucosa (Layer 2). A mass was found in the body of the stomach. A tissue diagnosis was obtained prior to this exam. - One abnormal lymph node (1.4x1.2 cm) was visualized in the peripancreatic region. Tissue was obtained from this exam, and results are pending. However, the endosonographic appearance is benign inflammatory changes. Fine needle biopsy performed. - Multiple 3 to 8 mm sessile polyps with no bleeding and no stigmata of recent bleeding were found in the stomach Per my discussion with the advanced endoscopist, patient has several sessile gastric polyps that were not removed. Pathologic Diagnosis A. Lymph node, peripancreatic, fine needle biopsy: Metastatic neuroendocrine tumor, well differentiated. Tumor is positive for neuroendocrine markers chromogranin and synaptophysin Proliferation index as measured with Ki 67 is 8% B. 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 Tumor is positive for neuroendocrine markers chromogranin and synaptophysin Proliferation index as measured with Ki 67 is 5% C. Stomach, distal, polyps x2, biopsy: Well differentiated neuroendocrine tumors, 5 and 6 mm WHO grade 2 Both appear to extend to the base of the biopsy. Tumors are positive for neuroendocrine markers chromogranin and synaptophysin Proliferation index as measured with Ki 67 is approximately 4% D. Stomach, cardia, polyp, biopsy: Cardiac type hyperplastic polyp with intestinal metaplasia. No evidence of epithelial dysplasia. No evidence of neuroendocrine tumor. Neuroendocrine markers highlight only focal linear neuroendocrine cell hyperplasia. Ki 67 is unremarkable. 07/29/24: Colonoscopy : prep was inadequate. Will request procedure note. Was advised repeat colonoscopy in 6 months. Interim History Chief Complaint Patient presents with Follow-up New Patient follow up Has been doing ok since last visit Results Labs and scans completed on 08/14/24 Leroy Tyler is present today for a follow up evaluation. Since her last visit on 07/30/24 she hasbeen feeling well. She has been off pantoprazole since 07/31/24 (she has otherwise been on 40mg BID of pantoprazole since 03/2024). She reports intermittent GERD off pantoprazole. She has constipation and reports she sometimes has abdominal cramps right after she eats and it improves with a bowel movement. She is on continuous O2: 2 L/min since Feb 2024 (reports she was dx with COVID19 then). ECOG PS: 1 REVIEW OF SYSTEMS: Fatigue: Fatigue relieved by rest Nausea: Absent or within normal limits Vomiting: Absent or within normal limits Anorexia: Absent or within normal limits Diarrhea: Absent or within normal limits Constipation: Occasional or intermittent symptoms OR occasional use of stool softeners, laxatives, dietary modification, or enema Peripheral Motor Neuropathy: Absent or within normal limits Depression: Mild depressive symptoms Dyspnea: Absent or within normal limits Rash Maculo-Papular: Absent or within normal limits Pain: Mild pain Fever: Absent or within normal limits Localized Edema: Absent or within normal limits is allergic to bactrim [sulfamethoxazole-trimethoprim], codeine, and penicillins. is allergic to bactrim [sulfamethoxazole-trimethoprim], codeine, and penicillins. Allergies Allergen Reactions Bactrim [Sulfamethoxazole-Trimethoprim] Blisters Codeine Swelling Penicillins Rash Current Outpatient Medications Medication Sig Dispense Refill Albuterol 108 (90 Base) MCG/ACT Aero Soln inhaler Inhale 1 puff every 6 hours as needed for Shortness of Breath. Atorvastatin 20 MG tablet Take 1 tablet by mouth daily. diclofenac EC [address] tablet Take 1 tablet by mouth 2 times daily. ferrous sulfate 325 (65 Fe) MG Tab DR tablet DR Take 1 tablet by mouth 3 times daily with meals. FLUoxetine 40 MG capsule Take 1 capsule by mouth daily. fluticasone 50 MCG/ACT Suspension nasal spray 2 sprays by Nasal route daily. Levonorgestrel (Mirena, 52 MG,) 20 MCG/DAY 1 Intra Uterine Device by Intrauterine route. Levothyroxine 200 MCG tablet Take 1 tablet by mouth daily. 1.5 on Sundays NovoLOG FlexPen 100 UNIT/ML Solution Pen-injector injection Inject under the skin 3 times daily (take before meals). Sliding scale oxygen gas Inhale 2 L As directed. Please provide: small portable tanks This order certifies that this patient is under my care and that I, or a Nurse Practitioner or Physician's [employer]er Mill Operator had a [id number] Encounter with them. Based upon those findings, the equipment/supplies listed above are medically necessary. Pantoprazole [address] tablet DR Take 1 tablet by mouth 2 times daily. 60 tablet 2 Trulicity 0.75 MG/0.5ML Solution Auto-injector injection 0.5 mL once a week. urea 10 % Cream Apply 1 Application topically 2 times daily as needed. Apply to affected area. No current facility-administered medications for this visit. Past Medical History: Diagnosis Date Anxiety Arthritis Cirrhosis of liver Diabetes mellitus GERD (gastroesophageal reflux disease) History of cancer Hyperlipidemia Hyperthyroidism Liver disease KODI (obstructive sleep apnea) Renal disease Past Surgical History: Procedure Laterality Date COLONOSCOPY DIAGNOSTIC 2017 x 2 DILATION AND CURETTAGE LAP CHOLECYSTECTOMY [facility] family history includes Breast Cancer (age of onset: 63) in her mother; Coronary Artery Disease in her maternal grandfather; Lung Cancer (age of onset: 53) in her father; Myocardial Infarction in hermaternal grandfather; Thyroid Disease in her maternal grandmother. Family Hx: Mom had breast cancer in her 60s, dad had kidney cancer in his 50s. She has a younger brother who is healthy. No family hx of neuroendocrine cancer. No family hx s/o MEN1. Social Hx: Single. Lives by herself. 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 Used to smoke cigarettes (1 pack per week x 3-4 years, quit in 2000), used to drink alcohol (7 bottles of mixed alcoholic drinks over the weekends: from her teens through 30s. Quit drinking in 2000. Smoked marijuana (in her teens), snorted cocaine (in her 40s)-, and methamphetamine (in her 40s. Quit in ~2017. PHYSICAL EXAMINATION: The patient is obese, and in no acute distress. Blood pressure 142/67, pulse 106, temperature 97.3 F (36.3 C), temperature source Infrared, resp. rate 18, height 1.549 m (5' 0.98), weight 109.5 kg (241 lb 8 oz), SpO2 96%.. Patient is alert and oriented to time, place, and person. HEENT exam: anicteric sclera, moist oral mucosa, no mouth sores. LUNGS: Clear to auscultation. No crackles/rhonchi/wheezes. HEART: S1/S2 normal, no murmurs, rubs or gallops. ABDOMEN: Soft, non tender, non distended. Bowel sounds normoactive. No hepatomegaly. No palpable masses. EXTREMITIES: No cyanosis, clubbing, or edema. SKIN: no rash. LYMPH NODES: no lymphadenopathy. IMAGING STUDIES: Imaging results were reviewed and discussed with the patient at length today. NUC PET HEAD TO THIGH, 07/30/2024 COMPARISON: No prior studies available for comparison. IMPRESSION: Intensely avid gastrohepatic node, suspicious for metastatic node. No evidence of other tracer avid lesions. CT ABDOMEN/PELVIS WITH AND WITHOUT CONTRAST, 08/14/24 COMPARISON: 9 PET/CT 07/30/[address] abdomen/pelvis 04/03/2024 IMPRESSION: 1. 3 mm stone in the proximal left ureter without significant hydronephrosis. This is similar to PET CT however is moved into the ureter since the March 2024 exam. 2. Hepatosplenomegaly. 3. Mildly enlarged gastrohepatic lymph node LABS: CMP Lab Results Component Value Date SODIUM 133 (L) 08/14/2024 POTASSIUM 4.2 08/14/2024 CHLORIDE 95 (L) 08/14/2024 CO2 31 08/14/2024 BUN 12 08/14/2024 CREATSERUM 0.59 08/14/2024 GLUCOSE 210 (H) 08/14/2024 CALCIUM 9.2 08/14/2024 ALT 38 08/14/2024 AST 54 (H) 08/14/2024 ALKPHOS 114 08/14/2024 BILITOTAL 0.5 08/14/2024 ALBUMIN 3.5 08/14/2024 CBC Lab Results Component Value Date WBC 7.57 08/14/2024 HGB 10.5 (L) 08/14/2024 HCT 35.8 08/14/2024 PLATELET 223 08/14/2024 MCV 79.4 (L) 08/14/2024 TUMOR MARKERS Lab Results Component Value Date CALCITONIN <5.00 08/14/2024 GASTRIN 537 (H) 08/14/2024 GASTRIN 591 (H) 05/07/2024 Lab results have been reviewed and discussed with the patient. IMPRESSION & PLAN: Ms. Leroy Tyler is a 58 y.o. 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 Gastric neuroendocrine tumor: -Clinically doing okay. Has been on pantoprazole since 07/31/24 and noticed intermittent GERD. -Gastrin level off PPI is elevated which is consistent with type 1 gastric carcinoid -While regional LN metastases is not typical of type 1 gastric carcinoid, it has been reported. -Patient's clinical picture does not fit ZES (given the tumor location, and the absence of sequelaeof gastric acid hypersecretion: such as ulcers) or PPI associated gastric carcinoid (As she has been on PPI only since 03/2024). -CT A/P shows the enlarged gastrohepatic LN and other borderline LNs. The gastrohepatic LN is also avid on Ga PET. This is likely the same LN that is referred to as peripancreatic on prior EGD/EUS.There is also evidence of hepatosplenomegaly and a 3 mm L ureteral stone. - I reviewed serial CT A/P since 09/2020. The gastrohepatic LN has slowly progressively enlarged in size and appears more or less stable since 02/2024 -I recommended continued active surveillance - She has a follow-up EGD on 09/03/24. Will request GI to check gastric pH. - RTC in approx 4 mo with labs/scans prior. I recommended keeping PPI on hold and repeating labs (including tumor markers - gastrin, calcitonin, pancreatic polypeptide, chromogranin A) in 2 weeks. If gastrin level returns normal, this would beconsistent with a type 3 gastric carcinoid, otherwise, it would be a type 1. Will also check routine labs, IF Ab, anti-parietal cell Ab, Vit B12, MMA. PTH level (see below). Nonobstructive 3mm L ureteral stone: on CT A/P 08/14/24. Advised to follow-up with local urologist. Patient does have a hx of renal stones. PTH level 07/2024 wnl. Hypothyroidism: on levothyroxine GERD: Advised to resume pantoprazole at 40mg/day Microcytic anemia: Hgb has downtrended since 04/2024. Patient denies any hematochezia/ozzy. Last colonoscopy in 07/2024 was reportedly a poor prep and she was advised repeat colonoscopy in 6 mo. Will request colonoscopy report. Will check iron studies today and repeat CBC as well. Documented by Edward Her, Dr. Berrios on 08/27/2024 at 2:45 PM. All medical record entries made by the Taina were at my direction and personally dictated by me, Scott Berrios MD, MPH . I have reviewed and edited the chart and agree that the record accurately reflects my personal performance of the history, physical exam, assessment and plan. I have also personally directed, reviewed, and agree with the discharge instructions. Addendum: 08/28/24 discussed with GI/Dr. Merrill. PPI will affect gastric pH. Called patient and advised to keep PPI on hold until after the endoscopy on sep 03. Reviewed Hgb with patient- it has improved. Also reviewed iron studies. Iron stores are in the lower end of normal. Advised iron supplementation- she has been on iron supplementation until a week ago. New prescription sent for ferrous sulfate 325 mg every other day. [facility] History of Present illness Narrative* Scott Berrios MD, MPH - 08/27/2024 3:00 PM EST HISTORY OF PRESENT ILLNESS: Ms. Leroy Tyler is a 58 y.o. 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 diagnosed on 04/04/24. She was referred here toendocrine oncology clinic for further management. She was in usual state of health until 03/2024 when she presented to OSH with ozzy and SOB: 04/03/2024 CT abd/pelvis COMPARISON:Prior study dated: 03/04/2024 IMPRESSION: Small nonobstructing stones in the L kidney. Hepatosplenomegaly. 04/03/2024 CTA chest No central PE. No evidence of aortic dissection. Mild GGO. No focal consolidation. Hepatosplenomegaly. 04/04/24: EGD The examined esophagus was normal. Multiple 100 mm sessile polyps with no bleeding and no stigmata of recent bleeding were found in the GJ junction. In the cardia, in the gastric body, on the greatercurvature of the stomach and on the lesson curvature of the stomach. Biopsies were taken with a cold forcepts for histology. A signle 3.1cm pedunculated and sessie polyp with severe bleeding and stigmata of recent bleeding was found in the cardia. Area was successfully injected with 2epinephrine and tattoes. The polyp was removed with a saline injection-lift technique using a cold snare. Resection and retrieval were complete. No gross lesions were noted in the first portion of the duodenum [facility] read of pathology: A. 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 Tumor is present at both lateral margins and at the deep margin. The depth of invasion can not be assessed. No lymphovascular invasion identified. No perineural invasion is identified. Proliferation index as per Ki67 IHC is approximately 7% Lesion is positive for neuroendocrine markers chromogranin, CD56 and synaptophysin as well as for keratin AE1/AE3 (Focal) CK8 and CDX2; and it is negative for CK7. CK8 and CK20. 06/23/2024: EGD and Upper EUS (at [facility]) - Normal esophagus. - A single gastric polyp (1.5cm in the cardia). Resected and retrieved. Clip (MR conditional) was placed. Clip labor representative: [employer]. - An endoclip was found in the stomach. Removal was successful. - Two gastric polyps (0.9-1.1 cm in the gastric antrum). Resected and retrieved. Clips (MR conditional) were placed. Clip labor representative: [employer]. - 1.5cm post mucosectomy scar in the gastric body. Clips (MR conditional) were placed. Clip labor representative: [employer]. - A hypoechoic irregular mass was identified endosonographically in the body of the stomach. The mass measured 6 mm by 5 mm in maximal cross-sectional diameter. There was sonographic evidence suggesting invasion into the deep mucosa (Layer 2). A mass was found in the body of the stomach. A tissue diagnosis was obtained prior to this exam. - One abnormal lymph node (1.4x1.2 cm) was visualized in the peripancreatic region. Tissue was obtained from this exam, and results are pending. However, the endosonographic appearance is benign inflammatory changes. Fine needle biopsy performed. - Multiple 3 to 8 mm sessile polyps with no bleeding and no stigmata of recent bleeding were found in the stomach Per my discussion with the advanced endoscopist, patient has several sessile gastric polyps that were not removed. Pathologic Diagnosis A. Lymph node, peripancreatic, fine needle biopsy: Metastatic neuroendocrine tumor, well differentiated. Tumor is positive for neuroendocrine markers chromogranin and synaptophysin Proliferation index as measured with Ki 67 is 8% B. 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 Tumor is positive for neuroendocrine markers chromogranin and synaptophysin Proliferation index as measured with Ki 67 is 5% C. Stomach, distal, polyps x2, biopsy: Well differentiated neuroendocrine tumors, 5 and 6 mm WHO grade 2 Both appear to extend to the base of the biopsy. Tumors are positive for neuroendocrine markers chromogranin and synaptophysin Proliferation index as measured with Ki 67 is approximately 4% D. Stomach, cardia, polyp, biopsy: Cardiac type hyperplastic polyp with intestinal metaplasia. No evidence of epithelial dysplasia. No evidence of neuroendocrine tumor. Neuroendocrine markers highlight only focal linear neuroendocrine cell hyperplasia. Ki 67 is unremarkable. 07/29/24: Colonoscopy : prep was inadequate. Will request procedure note. Was advised repeat colonoscopy in 6 months. Interim History Chief Complaint Patient presents with Follow-up New Patient follow up Has been doing ok since last visit Results Labs and scans completed on 08/14/24 Leroy Tyler is present today for a follow up evaluation. Since her last visit on 07/30/24 she hasbeen feeling well. She has been off pantoprazole since 07/31/24 (she has otherwise been on 40mg BID of pantoprazole since 03/2024). She reports intermittent GERD off pantoprazole. She has constipation and reports she sometimes has abdominal cramps right after she eats and it improves with a bowel movement. She is on continuous O2: 2 L/min since Feb 2024 (reports she was dx with COVID19 then). ECOG PS: 1 REVIEW OF SYSTEMS: Fatigue: Fatigue relieved by rest Nausea: Absent or within normal limits Vomiting: Absent or within normal limits Anorexia: Absent or within normal limits Diarrhea: Absent or within normal limits Constipation: Occasional or intermittent symptoms OR occasional use of stool softeners, laxatives, dietary modification, or enema Peripheral Motor Neuropathy: Absent or within normal limits Depression: Mild depressive symptoms Dyspnea: Absent or within normal limits Rash Maculo-Papular: Absent or within normal limits Pain: Mild pain Fever: Absent or within normal limits Localized Edema: Absent or within normal limits is allergic to bactrim [sulfamethoxazole-trimethoprim], codeine, and penicillins. is allergic to bactrim [sulfamethoxazole-trimethoprim], codeine, and penicillins. Allergies Allergen Reactions Bactrim [Sulfamethoxazole-Trimethoprim] Blisters Codeine Swelling Penicillins Rash Current Outpatient Medications Medication Sig Dispense Refill Albuterol 108 (90 Base) MCG/ACT Aero Soln inhaler Inhale 1 puff every 6 hours as needed for Shortness of Breath. Atorvastatin 20 MG tablet Take 1 tablet by mouth daily. diclofenac EC [address] tablet Take 1 tablet by mouth 2 times daily. ferrous sulfate 325 (65 Fe) MG Tab DR tablet DR Take 1 tablet by mouth 3 times daily with meals. FLUoxetine 40 MG capsule Take 1 capsule by mouth daily. fluticasone 50 MCG/ACT Suspension nasal spray 2 sprays by Nasal route daily. Levonorgestrel (Mirena, 52 MG,) 20 MCG/DAY 1 Intra Uterine Device by Intrauterine route. Levothyroxine 200 MCG tablet Take 1 tablet by mouth daily. 1.5 on Sundays NovoLOG FlexPen 100 UNIT/ML Solution Pen-injector injection Inject under the skin 3 times daily (take before meals). Sliding scale oxygen gas Inhale 2 L As directed. Please provide: small portable tanks This order certifies that this patient is under my care and that I, or a Nurse Practitioner or Physician's [employer] Mill Operator had a [id number] Encounter with them. Based upon those findings, the equipment/supplies listed above are medically necessary. Pantoprazole [address] tablet DR Take 1 tablet by mouth 2 times daily. 60 tablet 2 Trulicity 0.75 MG/0.5ML Solution Auto-injector injection 0.5 mL once a week. urea 10 % Cream Apply 1 Application topically 2 times daily as needed. Apply to affected area. No current facility-administered medications for this visit. Past Medical History: Diagnosis Date Anxiety Arthritis Cirrhosis of liver Diabetes mellitus GERD (gastroesophageal reflux disease) History of cancer Hyperlipidemia Hyperthyroidism Liver disease KODI (obstructive sleep apnea) Renal disease Past Surgical History: Procedure Laterality Date COLONOSCOPY DIAGNOSTIC 2017 x 2 DILATION AND CURETTAGE LAP CHOLECYSTECTOMY [facility] family history includes Breast Cancer (age of onset: 63) in her mother; Coronary Artery Disease in her maternal grandfather; Lung Cancer (age of onset: 53) in her father; Myocardial Infarction in hermaternal grandfather; Thyroid Disease in her maternal grandmother. Family Hx: Mom had breast cancer in her 60s, dad had kidney cancer in his 50s. She has a younger brother who is healthy. No family hx of neuroendocrine cancer. No family hx s/o MEN1. Social Hx: Single. Lives by herself. 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 Used to smoke cigarettes (1 pack per week x 3-4 years, quit in 2000), used to drink alcohol (7 bottles of mixed alcoholic drinks over the weekends: from her teens through 30s. Quit drinking in 2000. Smoked marijuana (in her teens), snorted cocaine (in her 40s)-, and methamphetamine (in her 40s. Quit in ~2018. PHYSICAL EXAMINATION: The patient is obese, and in no acute distress. Blood pressure 142/67, pulse 106, temperature 97.3 F (36.3 C), temperature source Infrared, resp. rate 18, height 1.549 m (5' 0.98), weight 109.5 kg (241 lb 8 oz), SpO2 96%.. Patient is alert and oriented to time, place, and person. HEENT exam: anicteric sclera, moist oral mucosa, no mouth sores. LUNGS: Clear to auscultation. No crackles/rhonchi/wheezes. HEART: S1/S2 normal, no murmurs, rubs or gallops. ABDOMEN: Soft, non tender, non distended. Bowel sounds normoactive. No hepatomegaly. No palpable masses. EXTREMITIES: No cyanosis, clubbing, or edema. SKIN: no rash. LYMPH NODES: no lymphadenopathy. IMAGING STUDIES: Imaging results were reviewed and discussed with the patient at length today. NUC PET HEAD TO THIGH, 07/30/2024 COMPARISON: No prior studies available for comparison. IMPRESSION: Intensely avid gastrohepatic node, suspicious for metastatic node. No evidence of other tracer avid lesions. CT ABDOMEN/PELVIS WITH AND WITHOUT CONTRAST, 08/14/24 COMPARISON: 9 PET/CT 07/30/[address] abdomen/pelvis 04/03/2024 IMPRESSION: 1. 3 mm stone in the proximal left ureter without significant hydronephrosis. This is similar to PET CT however is moved into the ureter since the March 2024 exam. 2. Hepatosplenomegaly. 3. Mildly enlarged gastrohepatic lymph node LABS: CMP Lab Results Component Value Date SODIUM 133 (L) 08/14/2024 POTASSIUM 4.2 08/14/2024 CHLORIDE 95 (L) 08/14/2024 CO2 31 08/14/2024 BUN 12 08/14/2024 CREATSERUM 0.59 08/14/2024 GLUCOSE 210 (H) 08/14/2024 CALCIUM 9.2 08/14/2024 ALT 38 08/14/2024 AST 54 (H) 08/14/2024 ALKPHOS 114 08/14/2024 BILITOTAL 0.5 08/14/2024 ALBUMIN 3.5 08/14/2024 CBC Lab Results Component Value Date WBC 7.57 08/14/2024 HGB 10.5 (L) 08/14/2024 HCT 35.8 08/14/2024 PLATELET 223 08/14/2024 MCV 79.4 (L) 08/14/2024 TUMOR MARKERS Lab Results Component Value Date CALCITONIN <5.00 08/14/2024 GASTRIN 537 (H) 08/14/2024 GASTRIN 591 (H) 05/07/2024 Lab results have been reviewed and discussed with the patient. IMPRESSION & PLAN: Ms. Leroy Tyler is a 58 y.o. 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 Gastric neuroendocrine tumor: -Clinically doing okay. Has been on pantoprazole since 07/31/24 and noticed intermittent GERD. 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 -Patient's clinical picture does not fit ZES (given the tumor location, and the absence of sequelaeof gastric acid hypersecretion: such as ulcers) or PPI associated gastric carcinoid (As she has been on PPI only since 03/2024). -CT A/P shows the enlarged gastrohepatic LN and other borderline LNs. The gastrohepatic LN is also avid on Ga PET. This is likely the same LN that is referred to as peripancreatic on prior EGD/EUS.There is also evidence of hepatosplenomegaly and a 3 mm L ureteral stone. - I reviewed serial CT A/P since 09/2020. The gastrohepatic LN has slowly progressively enlarged in size and appears more or less stable since 02/2024 -I recommended continued active surveillance - She has a follow-up EGD on 09/03/24. Will request GI to check gastric pH. - RTC in approx 4 mo with labs/scans prior. Nonobstructive 3mm L ureteral stone: on CT A/P 08/14/24. Advised to follow-up with local urologist. Patient does have a hx of renal stones. PTH level 07/2024 wnl. Hypothyroidism: on levothyroxine GERD: Advised to resume pantoprazole at 40mg/day Microcytic anemia: Hgb has downtrended since 04/2024. Patient denies any hematochezia/ozzy. Last colonoscopy in 07/2024 was reportedly a poor prep and she was advised repeat colonoscopy in 6 mo. Will request colonoscopy report. Will check iron studies today and repeat CBC as well. Vitamin B12 level is in the lower limit of normal. Will add MMA next time. Documented by Edward Her Dr. Konda on 08/27/2024 at 2:45 PM. All medical record entries made by the Taina were at my direction and personally dictated by me, Scott Berrios MD, MPH . I have reviewed and edited the chart and agree that the record accurately reflects my personal performance of the history, physical exam, assessment and plan. I have also personally directed, reviewed, and agree with the discharge instructions. Addendum: 08/28/24 discussed with GI/Dr. Merrill. PPI will affect gastric pH. Called patient and advised to keep PPI on hold until after the endoscopy on sep 03. Reviewed Hgb with patient- it has improved. Also reviewed iron studies. Iron stores are in the lower end of normal. Advised iron supplementation- she has been on iron supplementation until a week ago. New prescription sent for ferrous sulfate 325 mg every other day. documented in this [facility]OS[facility] Instructions* Patient Instructions* Supriya Stone RN - 08/27/2024 3:00 PM EST Return to clinic: RTC in [address] Berrios with labs and scans 1 week prior RN to please request colonoscopy report form 07/29/24 from [facility] RN to please print out the CT A/P report and hand it to patient. Labs today (CBC, iron studies) Local labs on september 21 or - RN reminder to follow-up Please resume pantoprazole 40mg/day Please take over the counter colace and senna for constipation Please make an appt with your urologist re: the ureteral stones You may receive a survey regarding your care today at [facility]. We would appreciate if you could complete this short questionnaire as your feedback will help us improve future care of you, and others at our facility +++For labs, please note that if it is a walk-in lab, the lab appt will not show up on [employer]. In that case please keep a reminder in your calendar to get a lab draw on the same day of scans+++ Thank you for choosing [facility] for your cancer care. FMLA/Disability forms: Please allow up to 2 weeks for the forms to be returned to you. Refill requests: please request refills 2 weeks ahead of time to avoid any delays in receiving the refills My chart message response: PLEASE DO NOT SEND IN URGENT/EMERGENT MESSAGES VIA MY CHART. Please allow up to 24-48 hours for a response via my chart. Should you have questions or concerns, please call [phone]. documented in this encounterJ.W. [facility]02-06-[facility] Instructions* Patient Instructions* Supriya Stone RN - 08/27/2024 3:00 PM EST Return to clinic: RTC in [address] Berrios with labs and scans 1 week prior RN to please request colonoscopy report form 07/29/24 from [facility] RN to please print out the CT A/P report and hand it to patient. Labs today (CBC, iron studies) Local labs on september 21 or - RN reminder to follow-up Please resume pantoprazole 40mg/day Please take over the counter colace and senna for constipation Please make an appt with your urologist re: the ureteral stones You may receive a survey regarding your care today at [facility]. We would appreciate if you could complete this short questionnaire as your feedback will help us improve future care of you, and others at our facility +++For labs, please note that if it is a walk-in lab, the lab appt will not show up on [employer] In that case please keep a reminder in your calendar to get a lab draw on the same day of scans+++ Thank you for choosing [facility] for your cancer care. FMLA/Disability forms: Please allow up to 2 weeks for the forms to be returned to you. Refill requests: please request refills 2 weeks ahead of time to avoid any delays in receiving the refills My chart message response: PLEASE DO NOT SEND IN URGENT/EMERGENT MESSAGES VIA MY CHART. Please allow up to 24-48 hours for a response via my chart. Should you have questions or concerns, please call [phone]. documented in this encounterJ.W. [facility]02-06-2025 Instructions* Patient Instructions* Supriya Stone RN - 08/27/2024 3:00 PM EST Return to clinic: RTC in [address] Berrios with labs and scans 1 week prior RN to please request colonoscopy report form 07/29/24 from [facility] RN to please print out the CT A/P report and hand it to patient. Labs today (CBC, iron studies) Local labs on september 21 or - RN reminder to follow-up Please resume pantoprazole 40mg/day Please take over the counter colace and senna for constipation Please make an appt with your urologist re: the ureteral stones You may receive a survey regarding your care today at [facility]. We would appreciate if you could complete this short questionnaire as your feedback will help us improve future care of you, and others at our facility +++For labs, please note that if it is a walk-in lab, the lab appt will not show up on [employer]. In that case please keep a reminder in your calendar to get a lab draw on the same day of scans+++ Thank you for choosing [facility] for your cancer care. FMLA/Disability forms: Please allow up to 2 weeks for the forms to be returned to you. Refill requests: please request refills 2 weeks ahead of time to avoid any delays in receiving the refills My chart message response: PLEASE DO NOT SEND IN URGENT/EMERGENT MESSAGES VIA MY CHART. Please allow up to 24-48 hours for a response via my chart. Should you have questions or concerns, please call [phone]. documented in this encounterOSMer[facility]02-06-2025 Miscellaneous Notes* Addendum Note - Scott Berrios MD, MPH - 08/27/2024 3:00 PM ESTAddended by: SCOTT BERRIOS on: 08/28/2024 08:29 AM Modules accepted: Orders documented in this encounterOSMer[facility]02-06-2025 Miscellaneous Notes* Addendum Note - Scott Berrios MD, MPH - 08/27/2024 3:00 PM ESTAddended by: SCOTT BERRIOS on: 08/28/2024 08:29 AM Modules accepted: Orders * Addendum Note - Scott Berrios MD, MPH - 08/27/2024 3:00 PM ESTAddended by: SCOTT BERRIOS on: 09/04/2024 12:21 PM Modules accepted: Orders documented in this encounterJ.W. [facility]02-06-2025 Note* Addendum Note - Scott Berrios MD, MPH - 08/27/2024 3:00 PM ESTAddended by: SCOTT BERRIOS on: 08/28/2024 08:29 AM Modules accepted: Orders [facility] Note* Addendum Note - Scott Berrios MD, MPH - 08/27/2024 3:00 PM ESTAddended by: SCOTT BERRIOS on: 08/28/2024 08:29 AM Modules accepted: Orders [facility] Note* Addendum Note - Scott Berrios MD, MPH - 08/27/2024 3:00 PM ESTAddended by: SCOTT BERRIOS on: 09/04/2024 12:21 PM Modules accepted: Orders [facility]01-[facility] Telephone encounter Note* Telephone Encounter - Sridevi Connors RN - 07/31/2024 4:17 PM EST 07/31/2024 4:17 PM RN called patient to see what questions/concerns she had. Patient was asking to get information from her appointment this past month. She wanted information from her appointment that the doctor wrotein her note. RN let patient know that her note can be seen on the my chart bong. Patient verbalizes understanding. Help desk number provided to patient to create an online portal/my chart account. Again, patient verbalizes understanding. --Sridevi Connors RN [facility]01-10-20[facility] Miscellaneous Notes* Telephone Encounter - Sridevi Connors RN - 07/31/2024 4:17 PM EST 07/31/2024 4:17 PM RN called patient to see what questions/concerns she had. Patient was asking to get information from her appointment this past month. She wanted information from her appointment that the doctor wrotein her note. RN let patient know that her note can be seen on the my chart bong. Patient verbalizes understanding. Help desk number provided to patient to create an online portal/my chart account. Again, patient verbalizes understanding. --Sridevi Connors RN * Telephone Encounter - David Drake - 07/31/2024 9:07 AM EST Pt is rescheduled for CT on 08/14 due to it aligning better for transportation. She also asked if Dr. Berrios could send her paper work on why she eis unable to work at this time. Stated they talked about this at her last appt. Please advise. documented in this encounterOSMer[facility]01-10-2025 Telephone encounter Note* Telephone Encounter - David Drake - 07/31/2024 9:07 AM EST Pt is rescheduled for CT on 08/14 due to it aligning better for transportation. She also asked if Dr. Berrios could send her paper work on why she eis unable to work at this time. Stated they talked about this at her last appt. Please advise. [facility]01-[facility] History of Present illness Narrative* Scott Berrios MD, MPH - 07/30/2024 2:00 PM EST HISTORY OF PRESENT ILLNESS: Ms. Leroy Tyler is a 58 y.o. 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 diagnosed on 04/04/24. She was referred here toendocrine oncology clinic for further management. She was in usual state of health until 03/2024 when she presented to OSH with ozzy and SOB: 04/03/2024 CT abd/pelvis COMPARISON:Prior study dated: 03/04/2024 IMPRESSION: Small nonobstructing stones in the L kidney. Hepatosplenomegaly. 04/03/2024 CTA chest No central PE. No evidence of aortic dissection. Mild GGO. No focal consolidation. Hepatosplenomegaly. 04/04/24: EGD The examined esophagus was normal. Multiple 100 mm sessile polyps with no bleeding and no stigmata of recent bleeding were found in the GJ junction. In the cardia, in the gastric body, on the greatercurvature of the stomach and on the lesson curvature of the stomach. Biopsies were taken with a cold forcepts for histology. A signle 3.1cm pedunculated and sessie polyp with severe bleeding and stigmata of recent bleeding was found in the cardia. Area was successfully injected with 2epinephrine and tattoes. The polyp was removed with a saline injection-lift technique using a cold snare. Resection and retrieval were complete. No gross lesions were noted in the first portion of the duodenum [facility] read of pathology: A. 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 Tumor is present at both lateral margins and at the deep margin. The depth of invasion can not be assessed. No lymphovascular invasion identified. No perineural invasion is identified. Proliferation index as per Ki67 IHC is approximately 7% Lesion is positive for neuroendocrine markers chromogranin, CD56 and synaptophysin as well as for keratin AE1/AE3 (Focal) CK8 and CDX2; and it is negative for CK7. CK8 and CK20. 06/23/2024: EGD and Upper EUS (at [facility]) - Normal esophagus. - A single gastric polyp (1.5cm in the cardia). Resected and retrieved. Clip (MR conditional) was placed. Clip labor representative: [employer]. - An endoclip was found in the stomach. Removal was successful. - Two gastric polyps (0.9-1.1 cm in the gastric antrum). Resected and retrieved. Clips (MR conditional) were placed. Clip labor representative: [employer]. - 1.5cm post mucosectomy scar in the gastric body. Clips (MR conditional) were placed. Clip labor representative: [employer]. - A hypoechoic irregular mass was identified endosonographically in the body of the stomach. The mass measured 6 mm by 5 mm in maximal cross-sectional diameter. There was sonographic evidence suggesting invasion into the deep mucosa (Layer 2). A mass was found in the body of the stomach. A tissue diagnosis was obtained prior to this exam. - One abnormal lymph node (1.4x1.2 cm) was visualized in the peripancreatic region. Tissue was obtained from this exam, and results are pending. However, the endosonographic appearance is benign inflammatory changes. Fine needle biopsy performed. - Multiple 3 to 8 mm sessile polyps with no bleeding and no stigmata of recent bleeding were found in the stomach Per my discussion with the advanced endoscopist, patient has several sessle gastric polyps that were not removed. Pathologic Diagnosis A. Lymph node, peripancreatic, fine needle biopsy: Metastatic neuroendocrine tumor, well differentiated. Tumor is positive for neuroendocrine markers chromogranin and synaptophysin Proliferation index as measured with Ki 67 is 8% B. 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 Tumor is positive for neuroendocrine markers chromogranin and synaptophysin Proliferation index as measured with Ki 67 is 5% C. Stomach, distal, polyps x2, biopsy: Well differentiated neuroendocrine tumors, 5 and 6 mm WHO grade 2 Both appear to extend to the base of the biopsy. Tumors are positive for neuroendocrine markers chromogranin and synaptophysin Proliferation index as measured with Ki 67 is approximately 4% D. Stomach, cardia, polyp, biopsy: Cardiac type hyperplastic polyp with intestinal metaplasia. No evidence of epithelial dysplasia. No evidence of neuroendocrine tumor. Neuroendocrine markers highlight only focal linear neuroendocrine cell hyperplasia. Ki 67 is unremarkable. Today, Ms. Leroy Tyler reports doing okay overall. No further GI bleeding. She has been on pantoprazole 40mg BID since 03/2024. No nausea/vomiting. No diarrhea/flushing. She is on continuous O2: 2 L/min since Feb 2024 (reports she was dx with COVID19 then). ECOG PS: 1 REVIEW OF SYSTEMS: Fatigue: Fatigue relieved by rest Nausea: Absent or within normal limits Vomiting: Absent or within normal limits Anorexia: Absent or within normal limits Diarrhea: Absent or within normal limits Constipation: Absent or within normal limits Peripheral Motor Neuropathy: Absent or within normal limits Depression: Moderate depressive symptoms OR limiting instrumental ADL Dyspnea: Absent or within normal limits Rash Maculo-Papular: Absent or within normal limits Palmar-Plantar Erythrodysesthesia Syndrome: Absent or within normal limits Pain: Mild pain Fever: Absent or within normal limits Localized Edema: Absent or within normal limits is allergic to bactrim [sulfamethoxazole-trimethoprim], codeine, and penicillins. is allergic to bactrim [sulfamethoxazole-trimethoprim], codeine, and penicillins. Allergies Allergen Reactions Bactrim [Sulfamethoxazole-Trimethoprim] Blisters Codeine Swelling Penicillins Rash Current Outpatient Medications Medication Sig Dispense Refill Albuterol 108 (90 Base) MCG/ACT Aero Soln inhaler Inhale 1 puff every 6 hours as needed for Shortness of Breath. Atorvastatin 20 MG tablet Take 1 tablet by mouth daily. diclofenac EC [address] tablet Take 1 tablet by mouth 2 times daily. ferrous sulfate 325 (65 Fe) MG Tab DR tablet DR Take 1 tablet by mouth 3 times daily with meals. FLUoxetine 40 MG capsule Take 1 capsule by mouth daily. fluticasone 50 MCG/ACT Suspension nasal spray 2 sprays by Nasal route daily. Levonorgestrel (Mirena, 52 MG,) 20 MCG/DAY 1 Intra Uterine Device by Intrauterine route. Levothyroxine 200 MCG tablet Take 1 tablet by mouth daily. 1.5 on Sundays NovoLOG FlexPen 100 UNIT/ML Solution Pen-injector injection Inject under the skin 3 times daily (take before meals). Sliding scale Pantoprazole [address] tablet DR Take 1 tablet by mouth 2 times daily. 60 tablet 2 Trulicity 0.75 MG/0.5ML Solution Auto-injector injection 0.5 mL once a week. urea 10 % Cream Apply 1 Application topically 2 times daily as needed. Apply to affected area. No current facility-administered medications for this visit. Past Medical History: Diagnosis Date Anxiety Arthritis Cirrhosis of liver Diabetes mellitus GERD (gastroesophageal reflux disease) History of cancer Hyperlipidemia Hyperthyroidism Liver disease KODI (obstructive sleep apnea) Renal disease Past Surgical History: Procedure Laterality Date COLONOSCOPY DIAGNOSTIC 2017 x 2 DILATION AND CURETTAGE LAP CHOLECYSTECTOMY [facility] family history includes Breast Cancer (age of onset: 63) in her mother; Coronary Artery Disease in her maternal grandfather; Lung Cancer (age of onset: 53) in her father; Myocardial Infarction in hermaternal grandfather; Thyroid Disease in her maternal grandmother. Family Hx: Mom had breast cancer in her 60s, dad had kidney cancer in his 50s. She has a younger brother who is healthy. No family hx of neuroendocrine cancer. No family hx s/o MEN1. Social Hx: Single. Lives by herself. 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 Used to smoke cigarettes (1 pack per week x 3-4 years, quit in 2000), used to drink alcohol (7 bottles of mixed alcoholic drinks over the weekends: from her teens through 30s. Quit drinking in 2000. Smoked marijuana (in her teens), snorted cocaine (in her 40s)-, and methamphetamine (in her 40s. Quit in ~2017. PHYSICAL EXAMINATION: The patient is obese, and in no acute distress. Blood pressure 112/56, pulse 94, temperature 97.5 F (36.4 C), temperature source Infrared, resp. rate 16, height 1.552 m (5' 1.1), weight 106.4 kg (234 lb 8 oz), SpO2 93%.. Patient is alert and oriented to time, place, and person. HEENT exam: anicteric sclera, moist oral mucosa, no mouth sores. LUNGS: Clear to auscultation. Nocrackles/rhonchi/wheezes. HEART: S1/S2 normal, no murmurs, rubs or gallops. ABDOMEN: Soft, non tender, non distended. Bowel sounds normoactive. No hepatomegaly. No palpable masses. EXTREMITIES: No cyanosis, clubbing, or edema. SKIN: no rash. LYMPH NODES: no lymphadenopathy. IMAGING STUDIES: As noted above in HPI. Imaging results were reviewed and discussed with the patient at length today. LABS: CMP Lab Results Component Value Date SODIUM 134 (L) 05/07/2024 POTASSIUM 4.6 05/07/2024 CHLORIDE 99 05/07/2024 CO2 32 (H) 05/07/2024 BUN 16 05/07/2024 CREATSERUM 0.71 05/07/2024 GLUCOSE 281 (H) 06/23/2024 CALCIUM 9.9 05/07/2024 ALT 21 05/07/2024 AST 22 05/07/2024 ALKPHOS 125 05/07/2024 BILITOTAL 0.5 05/07/2024 ALBUMIN 3.8 05/07/2024 CBC Lab Results Component Value Date WBC 8.85 05/07/2024 HGB 11.2 (L) 05/07/2024 HCT 36.4 05/07/2024 PLATELET 282 05/07/2024 MCV 81.4 05/07/2024 TUMOR MARKERS Lab Results Component Value Date GASTRIN 591 (H) 05/07/2024 Lab results have been reviewed and discussed with the patient. IMPRESSION & PLAN: Ms. Leroy Tyler is a 58 y.o. 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 Gastric neuroendocrine tumor: Patient was explained about the spectrum of neuroendocrine neoplasms ranging from well- to poorly-differentiated based on the grade of differentiation of neuroendocrine neoplasms. Well differentiatedneuroendocrine tumor tends to be generally slow growing in nature and that it may take years to grow rather than days/weeks/months. We discussed that carcinoid tumor can start anywhere in the body including stomach. When it starts in the stomach, it can occur under 3 different settings: 1) autoimmune metaplastic atrophic gastritis (AMAG) with hypergastrinemia 2) sandra ryan syndrome 3)sporadic 4) PPI-associated. Pt was explained at length about natural hx and monitoring/treatment options for each of this categories. Leroy Tyler has evidence of a well differentiated gastric neuroendocrine tumor in the setting of chronic atrophic gastritis without evidence of ulcer disease. 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 However, metastases to regional LNs is not typical for a type 1 gastric carcinoid. Patient's clinical picture does not fit ZES (given the tumor location, and the absence of sequelae of gastric acid hypersecretion: such as ulcers) or PPI associated gastric carcinoid (As she has been on PPI only since 03/2024). I recommended keeping PPI on hold and repeating labs (including tumor markers - gastrin, calcitonin, pancreatic polypeptide, chromogranin A) in 2 weeks. If gastrin level returns normal, this would beconsistent with a type 3 gastric carcinoid, otherwise, it would be a type 1. Will also check routine labs, IF Ab, anti-parietal cell Ab, Vit B12, MMA. PTH level (see below). Will get a baseline triple phase CT A/P RTC to regroup after Hypothyroidism: on levothyroxine Kidney stones: will check PTH level Documented by Edward Her Dr. Konda on 07/30/2024 at 2:54 PM. All medical record entries made by the Taina were at my direction and personally dictated by me, Scott Berrios MD, MPH . I have reviewed and edited the chart and agree that the record accurately reflects my personal performance of the history, physical exam, assessment and plan. I have also personally directed, reviewed, and agree with the discharge instructions. documented in this [facility]01-09-2025 History of Present illness Narrative* Scott Berrios MD, MPH - 07/30/2024 2:00 PM EST HISTORY OF PRESENT ILLNESS: Ms. Leroy Tyler is a 58 y.o. 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 diagnosed on 04/04/24. She was referred here toendocrine oncology clinic for further management. She was in usual state of health until 03/2024 when she presented to OSH with ozzy and SOB: 04/03/2024 CT abd/pelvis COMPARISON:Prior study dated: 03/04/2024 IMPRESSION: Small nonobstructing stones in the L kidney. Hepatosplenomegaly. 04/03/2024 CTA chest No central PE. No evidence of aortic dissection. Mild GGO. No focal consolidation. Hepatosplenomegaly. 04/04/24: EGD The examined esophagus was normal. Multiple 100 mm sessile polyps with no bleeding and no stigmata of recent bleeding were found in the GJ junction. In the cardia, in the gastric body, on the greatercurvature of the stomach and on the lesson curvature of the stomach. Biopsies were taken with a cold forcepts for histology. A signle 3.1cm pedunculated and sessie polyp with severe bleeding and stigmata of recent bleeding was found in the cardia. Area was successfully injected with 2epinephrine and tattoes. The polyp was removed with a saline injection-lift technique using a cold snare. Resection and retrieval were complete. No gross lesions were noted in the first portion of the duodenum [facility] read of pathology: A. 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 Tumor is present at both lateral margins and at the deep margin. The depth of invasion can not be assessed. No lymphovascular invasion identified. No perineural invasion is identified. Proliferation index as per Ki67 IHC is approximately 7% Lesion is positive for neuroendocrine markers chromogranin, CD56 and synaptophysin as well as for keratin AE1/AE3 (Focal) CK8 and CDX2; and it is negative for CK7. CK8 and CK20. 06/23/2024: EGD and Upper EUS (at [facility]) - Normal esophagus. - A single gastric polyp (1.5cm in the cardia). Resected and retrieved. Clip (MR conditional) was placed. Clip labor representative: [employer]. - An endoclip was found in the stomach. Removal was successful. - Two gastric polyps (0.9-1.1 cm in the gastric antrum). Resected and retrieved. Clips (MR conditional) were placed. Clip labor representative: [employer]. - 1.5cm post mucosectomy scar in the gastric body. Clips (MR conditional) were placed. Clip labor representative: [employer]. - A hypoechoic irregular mass was identified endosonographically in the body of the stomach. The mass measured 6 mm by 5 mm in maximal cross-sectional diameter. There was sonographic evidence suggesting invasion into the deep mucosa (Layer 2). A mass was found in the body of the stomach. A tissue diagnosis was obtained prior to this exam. - One abnormal lymph node (1.4x1.2 cm) was visualized in the peripancreatic region. Tissue was obtained from this exam, and results are pending. However, the endosonographic appearance is benign inflammatory changes. Fine needle biopsy performed. - Multiple 3 to 8 mm sessile polyps with no bleeding and no stigmata of recent bleeding were found in the stomach Per my discussion with the advanced endoscopist, patient has several sessle gastric polyps that were not removed. Pathologic Diagnosis A. Lymph node, peripancreatic, fine needle biopsy: Metastatic neuroendocrine tumor, well differentiated. Tumor is positive for neuroendocrine markers chromogranin and synaptophysin Proliferation index as measured with Ki 67 is 8% B. 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 Tumor is positive for neuroendocrine markers chromogranin and synaptophysin Proliferation index as measured with Ki 67 is 5% C. Stomach, distal, polyps x2, biopsy: Well differentiated neuroendocrine tumors, 5 and 6 mm WHO grade 2 Both appear to extend to the base of the biopsy. Tumors are positive for neuroendocrine markers chromogranin and synaptophysin Proliferation index as measured with Ki 67 is approximately 4% D. Stomach, cardia, polyp, biopsy: Cardiac type hyperplastic polyp with intestinal metaplasia. No evidence of epithelial dysplasia. No evidence of neuroendocrine tumor. Neuroendocrine markers highlight only focal linear neuroendocrine cell hyperplasia. Ki 67 is unremarkable. Today, Ms. Leroy Tyler reports doing okay overall. No further GI bleeding. She has been on pantoprazole 40mg BID since 03/2024. No nausea/vomiting. No diarrhea/flushing. She is on continuous O2: 2 L/min since Feb 2024 (reports she was dx with COVID19 then). ECOG PS: 1 REVIEW OF SYSTEMS: Fatigue: Fatigue relieved by rest Nausea: Absent or within normal limits Vomiting: Absent or within normal limits Anorexia: Absent or within normal limits Diarrhea: Absent or within normal limits Constipation: Absent or within normal limits Peripheral Motor Neuropathy: Absent or within normal limits Depression: Moderate depressive symptoms OR limiting instrumental ADL Dyspnea: Absent or within normal limits Rash Maculo-Papular: Absent or within normal limits Palmar-Plantar Erythrodysesthesia Syndrome: Absent or within normal limits Pain: Mild pain Fever: Absent or within normal limits Localized Edema: Absent or within normal limits is allergic to bactrim [sulfamethoxazole-trimethoprim], codeine, and penicillins. is allergic to bactrim [sulfamethoxazole-trimethoprim], codeine, and penicillins. Allergies Allergen Reactions Bactrim [Sulfamethoxazole-Trimethoprim] Blisters Codeine Swelling Penicillins Rash Current Outpatient Medications Medication Sig Dispense Refill Albuterol 108 (90 Base) MCG/ACT Aero Soln inhaler Inhale 1 puff every 6 hours as needed for Shortness of Breath. Atorvastatin 20 MG tablet Take 1 tablet by mouth daily. diclofenac EC [address] tablet Take 1 tablet by mouth 2 times daily. ferrous sulfate 325 (65 Fe) MG Tab DR tablet DR Take 1 tablet by mouth 3 times daily with meals. FLUoxetine 40 MG capsule Take 1 capsule by mouth daily. fluticasone 50 MCG/ACT Suspension nasal spray 2 sprays by Nasal route daily. Levonorgestrel (Mirena, 52 MG,) 20 MCG/DAY 1 Intra Uterine Device by Intrauterine route. Levothyroxine 200 MCG tablet Take 1 tablet by mouth daily. 1.5 on Sundays NovoLOG FlexPen 100 UNIT/ML Solution Pen-injector injection Inject under the skin 3 times daily (take before meals). Sliding scale Pantoprazole [address] tablet DR Take 1 tablet by mouth 2 times daily. 60 tablet 2 Trulicity 0.75 MG/0.5ML Solution Auto-injector injection 0.5 mL once a week. urea 10 % Cream Apply 1 Application topically 2 times daily as needed. Apply to affected area. No current facility-administered medications for this visit. Past Medical History: Diagnosis Date Anxiety Arthritis Cirrhosis of liver Diabetes mellitus GERD (gastroesophageal reflux disease) History of cancer Hyperlipidemia Hyperthyroidism Liver disease KODI (obstructive sleep apnea) Renal disease Past Surgical History: Procedure Laterality Date COLONOSCOPY DIAGNOSTIC 2017 x 2 DILATION AND CURETTAGE LAP CHOLECYSTECTOMY [facility] family history includes Breast Cancer (age of onset: 63) in her mother; Coronary Artery Disease in her maternal grandfather; Lung Cancer (age of onset: 53) in her father; Myocardial Infarction in hermaternal grandfather; Thyroid Disease in her maternal grandmother. Family Hx: Mom had breast cancer in her 60s, dad had kidney cancer in his 50s. She has a younger brother who is healthy. No family hx of neuroendocrine cancer. No family hx s/o MEN1. Social Hx: Single. Lives by herself. 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 Used to smoke cigarettes (1 pack per week x 3-4 years, quit in 2000), used to drink alcohol (7 bottles of mixed alcoholic drinks over the weekends: from her teens through 30s. Quit drinking in 2000. Smoked marijuana (in her teens), snorted cocaine (in her 40s)-, and methamphetamine (in her 40s. Quit in ~2018. PHYSICAL EXAMINATION: The patient is obese, and in no acute distress. Blood pressure 112/56, pulse 94, temperature 97.5 F (36.4 C), temperature source Infrared, resp. rate 16, height 1.552 m (5' 1.1), weight 106.4 kg (234 lb 8 oz), SpO2 93%.. Patient is alert and oriented to time, place, and person. HEENT exam: anicteric sclera, moist oral mucosa, no mouth sores. LUNGS: Clear to auscultation. Nocrackles/rhonchi/wheezes. HEART: S1/S2 normal, no murmurs, rubs or gallops. ABDOMEN: Soft, non tender, non distended. Bowel sounds normoactive. No hepatomegaly. No palpable masses. EXTREMITIES: No cyanosis, clubbing, or edema. SKIN: no rash. LYMPH NODES: no lymphadenopathy. IMAGING STUDIES: As noted above in HPI. Imaging results were reviewed and discussed with the patient at length today. LABS: CMP Lab Results Component Value Date SODIUM 134 (L) 05/07/2024 POTASSIUM 4.6 05/07/2024 CHLORIDE 99 05/07/2024 CO2 32 (H) 05/07/2024 BUN 16 05/07/2024 CREATSERUM 0.71 05/07/2024 GLUCOSE 281 (H) 06/23/2024 CALCIUM 9.9 05/07/2024 ALT 21 05/07/2024 AST 22 05/07/2024 ALKPHOS 125 05/07/2024 BILITOTAL 0.5 05/07/2024 ALBUMIN 3.8 05/07/2024 CBC Lab Results Component Value Date WBC 8.85 05/07/2024 HGB 11.2 (L) 05/07/2024 HCT 36.4 05/07/2024 PLATELET 282 05/07/2024 MCV 81.4 05/07/2024 TUMOR MARKERS Lab Results Component Value Date GASTRIN 591 (H) 05/07/2024 Lab results have been reviewed and discussed with the patient. IMPRESSION & PLAN: Ms. Leroy Tyler is a 58 y.o. 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 Gastric neuroendocrine tumor: Patient was explained about the spectrum of neuroendocrine neoplasms ranging from well- to poorly-differentiated based on the grade of differentiation of neuroendocrine neoplasms. Well differentiatedneuroendocrine tumor tends to be generally slow growing in nature and that it may take years to grow rather than days/weeks/months. We discussed that carcinoid tumor can start anywhere in the body including stomach. When it starts in the stomach, it can occur under 3 different settings: 1) autoimmune metaplastic atrophic gastritis (AMAG) with hypergastrinemia 2) sandra ryan syndrome 3)sporadic 4) PPI-associated. Pt was explained at length about natural hx and monitoring/treatment options for each of this categories. Leroy Tyler has evidence of a well differentiated gastric neuroendocrine tumor in the setting of chronic atrophic gastritis without evidence of ulcer disease. 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 However, metastases to regional LNs is not typical for a type 1 gastric carcinoid. Patient's clinical picture does not fit ZES (given the tumor location, and the absence of sequelae of gastric acid hypersecretion: such as ulcers) or PPI associated gastric carcinoid (As she has been on PPI only since 03/2024). I recommended keeping PPI on hold and repeating labs (including tumor markers - gastrin, calcitonin, pancreatic polypeptide, chromogranin A) in 2 weeks. If gastrin level returns normal, this would beconsistent with a type 3 gastric carcinoid, otherwise, it would be a type 1. Will also check routine labs, IF Ab, anti-parietal cell Ab, Vit B12, MMA. PTH level (see below). Will get a baseline triple phase CT A/P RTC to regroup after Hypothyroidism: on levothyroxine Kidney stones: will check PTH level Documented by Edward Her Dr. Konda on 07/30/2024 at 2:54 PM. All medical record entries made by the Scribe were at my direction and personally dictated by me, Scott Berrios MD, MPH . I have reviewed and edited the chart and agree that the record accurately reflects my personal performance of the history, physical exam, assessment and plan. I have also personally directed, reviewed, and agree with the discharge instructions. documented in this [facility]01-09-2025 Instructions* Patient Instructions* Scott Berrios MD, MPH - 07/30/2024 2:00 PM EST Please do not take pantoprazole until Aug 14. You can resume on Aug 14 after your labs on Aug 13. Please request the EGD report from 04/04/24 from [facility]. Labs and CT A/P on Aug 13 RTC on Aug 27. No labs needed that day. RN to please print and mail my signed clinic note to the patient [facility] Instructions* Patient Instructions* Scott Berrios MD, MPH - 07/30/2024 2:00 PM EST Please do not take pantoprazole until Aug 14. You can resume on Aug 14 after your labs on Aug 13. Please request the EGD report from 04/04/24 from [facility]. Labs and CT A/P on Aug 13 RTC on Aug 27. No labs needed that day. RN to please print and mail my signed clinic note to the patient [facility] Miscellaneous Notes* Addendum Note - Scott Berrios MD, MPH - 07/30/2024 2:00 PM ESTAddended by: SCOTT BERRIOS on: 07/31/2024 10:25 AM Modules accepted: [facility] Note* Addendum Note - Scott Berrios MD, MPH - 07/30/2024 2:00 PM ESTAddended by: SCOTT BERRIOS on: 07/31/2024 10:25 AM Modules accepted: Orders [facility]01-09-[facility] History of Present illness Narrative* Gia Kilgore RN - 07/30/2024 11:47 AM EST I received handoff from Sandy. After review of the chart, there are no current complex case management needs at this time, Please re-consult if new needs arise. Gia ELMORE hydraulic jack adjuster [facility] Pager: [phone] automatic i threading machine feeder Line: [phone] documented [facility] this [facility] History of Present illness Narrative* Karolina Piedra, KHADIJAH-ALEXEI, DNP - 07/30/2024 11:45 AM EST Chief Complaint: Chief Complaint Patient presents with Follow-up History of Present Illness: Ms. Tyler is a 58 y.o. 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 She presents to [facility] clinic for follow up with Ga PET. Oncologic History: Leroy Tyler initially presented with c/o abdominal pain, GI bleed. Was admitted locally at [facility] in March 2024. 04/03/2024 CT abd: did not show anything acute; CTA chest: nl 04/04/2024 EGD OSH: gastric mass biopsy showed WD 2.5 cm gastric neuroendocrine tumor, Ki67 3% Interval History: Ms. Tyler is here today unaccompanied for her appointment. She complains of abdominal discomfort. Denies n/v. Eating ok. C/o occasional constipation. Had colonoscopy yesterday at [place] - she was not prepped enough so it has to be repeated in 6 months. She reports she is on 2L O2 per NC at night and with activity since her hospitalization in March. She had COVID three times last year. Allergies Allergen Reactions Bactrim [Sulfamethoxazole-Trimethoprim] Blisters Codeine Swelling Penicillins Rash Current Outpatient Medications Medication Sig Dispense Refill Albuterol 108 (90 Base) MCG/ACT Aero Soln inhaler Inhale 1 puff every 6 hours as needed for Shortness of Breath. Atorvastatin 20 MG tablet Take 1 tablet by mouth daily. diclofenac EC [address] tablet Take 1 tablet by mouth 2 times daily. ferrous sulfate 325 (65 Fe) MG Tab DR tablet DR Take 1 tablet by mouth 3 times daily with meals. FLUoxetine 40 MG capsule Take 1 capsule by mouth daily. fluticasone 50 MCG/ACT Suspension nasal spray 2 sprays by Nasal route daily. Levonorgestrel (Mirena, 52 MG,) 20 MCG/DAY 1 Intra Uterine Device by Intrauterine route. Levothyroxine 200 MCG tablet Take 1 tablet by mouth daily. 1.5 on Sundays NovoLOG FlexPen 100 UNIT/ML Solution Pen-injector injection Inject under the skin 3 times daily (take before meals). Sliding scale Pantoprazole [address] tablet DR Take 1 tablet by mouth 2 times daily. 60 tablet 2 Trulicity 0.75 MG/0.5ML Solution Auto-injector injection 0.5 mL once a week. No current facility-administered medications for this visit. Review of Systems: General ROS: negative for - chills, fatigue, fever, or weight loss Cardiovascular ROS: no chest pain or dyspnea on exertion Respiratory ROS: no cough, shortness of breath, or wheezing Gastrointestinal ROS: minimal abdominal pain, change in bowel habits, or black or bloody stools Dermatological ROS: negative Physical Exam: Wt Readings from Last 3 Encounters: 07/30/24 106.4 kg (234 lb 8 oz) 07/09/24 105.5 kg (232 lb 8 oz) 05/07/24 107.5 kg (237 lb) BP 112/56 Pulse 94 Temp 97.5 F (36.4 C) (Infrared) Resp 16 Ht 1.552 m (5' 1.1) Comment: with shoes Wt 106.4 kg (234 lb 8 oz) Comment: with shoes SpO2 93% BMI 44.16 kg/m Smoking Status Former General: alert, cooperative, no distress, appears stated age Cardio: regular rate and rhythm, S1, S2 normal, no murmur, click, rub or gallop Pulmonary: clear to auscultation bilaterally Abdomen: soft, non-tender, non-distended Laboratory evaluation: Lab Results Component Value Date SODIUM 134 (L) 05/07/2024 POTASSIUM 4.6 05/07/2024 CHLORIDE 99 05/07/2024 CO2 32 (H) 05/07/2024 BUN 16 05/07/2024 CREATSERUM 0.71 05/07/2024 GLUCOSE 281 (H) 06/23/2024 Lab Results Component Value Date WBC 8.85 05/07/2024 HGB 11.2 (L) 05/07/2024 HCT 36.4 05/07/2024 PLATELET 282 05/07/2024 MCV 81.4 05/07/2024 No results found for: CEA, CEAPRESHAMA, CEANEWMETHOD No results found for: CA125 Lab Results Component Value Date ALT 21 05/07/2024 AST 22 05/07/2024 ALKPHOS 125 05/07/2024 BILITOTAL 0.5 05/07/2024 Tumor Markers: Lab Results Component Value Date CHROMOGRANA 946 (H) 05/07/2024 Radiographic evaluation: PET dotatate today 07/30/2024: IMPRESSION: Intensely avid gastrohepatic node, suspicious for metastatic node. No evidence of other tracer avid lesions. Assessment Ms. Tyler is a 58 y.o. 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 She is doing fair today, no changes since we last saw her. Plan Patient seen and evaluated by myself and Dr. Rod, all available relevant imaging and labs reviewed, and the plan was developed collaboratively. RTC prn All questions were answered to the patient's satisfaction. She was instructed to call the office ifthey had further questions. Total time DRILL HAND spent prior to patient visit obtaining and reviewing records, and with patient reviewing HPI, pertinent medical, surgical and social history and conducting physical exam: 25 minutes. Karolina Piedra, INDIRA, GOLD BLOWER-DRILL HAND Nurse Practitioner, GI Surgical Oncology Attending Physician Note I interviewed and examined this patient with the PRIMARY HEALTH CARE NURSE/fellow/resident. I reviewed the history and exam detailed in the note and have edited it as necessary. I agree with the medical decision making with the following comment(s): returns for re-evaluation and discussion of PET which shows residual lymph node metastasis and possible avidity in the stomach. Health and functional status have not improved, still on home oxygen. Not surgical candidate. Seeing Dr Berrios today, could consider SSAs, observation, chemotherapy, or even EUS-RFA. Would benefit from endoscopic and radiographic surveillance. Can see me as needed. Blas Rod MD [facility] [facility]01[facility]07[facility]2025 Evaluation note* Diagnosis Onset Date Resolution Status Admit Date NAFLD (nonalcoholic fatty li giovanna disease) chronic July 28 10:12am Neuroendocrine tumor chronic 2024 10:12am Gastroparesis acute July 12:24pm Neuroendocrine tumor chronic 2024 12:24pm Asthma acute September 04, 2024 12:37pm Hypoxemia acute September 04, 2024 12:37pm Obstructive sleep apnea acute F ebruary 2024 12:37pm Diabetes chronic September 24 1:02pm High triglycerides chronic September 24, 2024 1:02pm Hypertension chronic September 24 2 025 1:02pm Hypothyroidism chronic September 24, 2024 1:02pm Neuropathy chronic September 24 1:02pm Obesity chronic September 24 1:02pm [facility] Work Phone: 1(853) 875-635101-07-2025 Evaluation note* Diagnosis Onset Date Resolution Status Admit Date NAFLD (nonalcoholic fatty li giovanna disease) chronic July 28 10:12am Neuroendocrine tumor chronic 2024 10:12am Gastroparesis acute July 12:24pm Neuroendocrine tumor chronic William2024 12:24pm Asthma acute September 04, 2024 12:37pm Hypoxemia acute September 04, 2024 12:37pm Obstructive sleep apnea acute F ebruary 2024 12:37pm Diabetes chronic September 24 1:02pm High triglycerides chronic September 24, 2024 1:02pm Hypertension chronic September 24, 2 025 1:02pm Hypothyroidism chronic September 24, 2024 1:02pm Neuropathy chronic September 24 1:02pm Obesity chronic September 24 1:02pm Asthma acute October 30 12:32pm Hypoxemia acute October 30 12:32pm Obstructive sleep apnea acute A pril 2024 12:32pm [facility] Work Phone: 1(838) 929-364112-03-2024 Nurse Surgical operation note* Kam Manjarrez RN - 06/23/2024 3:19 PM EST MD greer to DC. IV removed. DC teaching reviewed. Pt declines help getting dressed. Family present. [facility] Nurse Note* Kam Manjarrez RN - 06/23/2024 3:19 PM EST MD greer to CRISTY. IV removed. DC teaching reviewed. Pt declines help getting dressed. Family present. [facility] History and physical note* Blas Merrill MD - 06/23/2024 1:00 PM EST ENDOSCOPIC PREPROCEDURE HISTORY AND PHYSICAL HISTORY OF PRESENT ILLNESS: Leroy Tyler is a 58 y.o. female seen in the preoprocedure area at [facility]. The indication for endoscopic evaluation includes: Neuroendocrine tumor. PAST MEDICAL HISTORY: Past Medical History: Diagnosis Date Anxiety Arthritis Cirrhosis of liver Diabetes mellitus GERD (gastroesophageal reflux disease) History of cancer Hyperlipidemia Hyperthyroidism Liver disease KODI (obstructive sleep apnea) Renal disease SURGICAL HISTORY: Past Surgical History: Procedure Laterality Date COLONOSCOPY DIAGNOSTIC 2017 x 2 DILATION AND CURETTAGE LAP CHOLECYSTECTOMY [facility] MEDICATIONS: Current Outpatient Medications Medication Instructions Albuterol 108 (90 Base) MCG/ACT Aero Soln inhaler 1 puff, Inhalation, EVERY 6 HOURS NEEDED Atorvastatin (LIPITOR) 20 mg, Oral, DAILY Ciprofloxacin 500 MG tablet 1 tablet, Oral, 2 TIMES DAILY diclofenac EC (VOLTAREN) 75 mg, Oral, 2 TIMES DAILY ferrous sulfate 325 mg, Oral, 3 TIMES DAILY WITH MEALS FLUoxetine (PROZAC) 40 mg, Oral, DAILY fluticasone 50 MCG/ACT Suspension nasal spray 2 sprays, Nasal, DAILY Levonorgestrel (Mirena, 52 MG,) 20 MCG/DAY 1 Each, Intrauterine Levothyroxine (SYNTHROID) 200 mcg, Oral, DAILY, 1.5 on Sundays NovoLOG FlexPen 90 Units, Subcutaneous Pantoprazole (PROTONIX) 40 mg, Oral, DAILY Trulicity 0.75 mg, WEEKLY Current Outpatient Medications: Albuterol 108 (90 Base) MCG/ACT Aero Soln inhaler, Inhale 1 puff every 6 hours as needed for Shortness of Breath., Disp: , Rfl: Atorvastatin 20 MG tablet, Take 1 tablet by mouth daily., Disp: , Rfl: diclofenac EC [address] tablet, Take 1 tablet by mouth 2 times daily., Disp: , Rfl: ferrous sulfate 325 (65 Fe) MG Tab DR tablet DR, Take 1 tablet by mouth 3 times daily with meals., Disp: , Rfl: FLUoxetine 40 MG capsule, Take 1 capsule by mouth daily., Disp: , Rfl: fluticasone 50 MCG/ACT Suspension nasal spray, 2 sprays by Nasal route daily., Disp: , Rfl: Levonorgestrel (Mirena, 52 MG,) 20 MCG/DAY, 1 Intra Uterine Device by Intrauterine route., Disp: , Rfl: Levothyroxine 200 MCG tablet, Take 1 tablet by mouth daily. 1.5 on Sundays, Disp: , Rfl: NovoLOG FlexPen 100 UNIT/ML Solution Pen-injector injection, Inject 90 Units under the skin., Disp:, Rfl: Pantoprazole [address] tablet DR, Take 1 tablet by mouth daily., Disp: , Rfl: Trulicity 0.75 MG/0.5ML Solution Auto-injector injection, 0.5 mL once a week., Disp: , Rfl: Ciprofloxacin 500 MG tablet, Take 1 tablet by mouth 2 times daily., Disp: , Rfl: ALLERGIES: Allergies Allergen Reactions Bactrim [Sulfamethoxazole-Trimethoprim] Blisters Codeine Swelling Penicillins Rash FOCUSED REVIEW OF SYSTEMS: Patient denies melena, hematochezia or hematemesis (unless as detailed in HPI.) Patient denies intractable vomiting, yellowing of eyes or skin, odynophagia, excessive belching, significant fecal incontinence. VITAL SIGNS: Vitals: 06/23/24 1223 BP: 102/66 Pulse: 94 Resp: 20 Temp: 97.5 degrees F (36.4 degrees C) TempSrc: Infrared SpO2: 96% Height: 1.524 m (5') PREPROCEDURE PHYSICAL EXAM: AIRWAY: Mallampati: Class II (complete visualization of the uvula) HEART: RRR PULMONARY: Normal respiratory effort and rate, no respiratory distress, no wheezes, no accessory muscle use, or nasal flaring, ABDOMEN: Soft, nontender, nondistended ASSESSMENT: Leroy Tyler is a 58 y.o. female is ready for the planned procedure. ASA Class: ASA 3 - Patient with moderate systemic disease with functional limitations PLAN: Will plan to proceed with EUS using Monitored Anesthesia Care. Blas Merrill MD [facility]20[facility] History and physical note* Blas Merrill MD - 06/23/2024 1:00 PM EST ENDOSCOPIC PREPROCEDURE HISTORY AND PHYSICAL HISTORY OF PRESENT ILLNESS: Leroy Tyler is a 58 y.o. female seen in the preoprocedure area at [facility]. The indication for endoscopic evaluation includes: Neuroendocrine tumor. PAST MEDICAL HISTORY: Past Medical History: Diagnosis Date Anxiety Arthritis Cirrhosis of liver Diabetes mellitus GERD (gastroesophageal reflux disease) History of cancer Hyperlipidemia Hyperthyroidism Liver disease KODI (obstructive sleep apnea) Renal disease SURGICAL HISTORY: Past Surgical History: Procedure Laterality Date COLONOSCOPY DIAGNOSTIC 2017 x 2 DILATION AND CURETTAGE LAP CHOLECYSTECTOMY [facility] MEDICATIONS: Current Outpatient Medications Medication Instructions Albuterol 108 (90 Base) MCG/ACT Aero Soln inhaler 1 puff, Inhalation, EVERY 6 HOURS NEEDED Atorvastatin (LIPITOR) 20 mg, Oral, DAILY Ciprofloxacin 500 MG tablet 1 tablet, Oral, 2 TIMES DAILY diclofenac EC (VOLTAREN) 75 mg, Oral, 2 TIMES DAILY ferrous sulfate 325 mg, Oral, 3 TIMES DAILY WITH MEALS FLUoxetine (PROZAC) 40 mg, Oral, DAILY fluticasone 50 MCG/ACT Suspension nasal spray 2 sprays, Nasal, DAILY Levonorgestrel (Mirena, 52 MG,) 20 MCG/DAY 1 Each, Intrauterine Levothyroxine (SYNTHROID) 200 mcg, Oral, DAILY, 1.5 on Sundays
NovoLOG FlexPen 90 Units, Subcutaneous Pantoprazole (PROTONIX) 40 mg, Oral, DAILY Trulicity 0.75 mg, WEEKLY Current Outpatient Medications: Albuterol 108 (90 Base) MCG/ACT Aero Soln inhaler, Inhale 1 puff every 6 hours as needed for Shortness of Breath., Disp: , Rfl: Atorvastatin 20 MG tablet, Take 1 tablet by mouth daily., Disp: , Rfl: diclofenac EC [address] tablet, Take 1 tablet by mouth 2 times daily., Disp: , Rfl: ferrous sulfate 325 (65 Fe) MG Tab DR tablet DR, Take 1 tablet by mouth 3 times daily with meals., Disp: , Rfl: FLUoxetine 40 MG capsule, Take 1 capsule by mouth daily., Disp: , Rfl: fluticasone 50 MCG/ACT Suspension nasal spray, 2 sprays by Nasal route daily., Disp: , Rfl: Levonorgestrel (Mirena, 52 MG,) 20 MCG/DAY, 1 Intra Uterine Device by Intrauterine route., Disp: , Rfl: Levothyroxine 200 MCG tablet, Take 1 tablet by mouth daily. 1.5 on Sundays, Disp: , Rfl: NovoLOG FlexPen 100 UNIT/ML Solution Pen-injector injection, Inject 90 Units under the skin., Disp:, Rfl: Pantoprazole [address] tablet DR, Take 1 tablet by mouth daily., Disp: , Rfl: Trulicity 0.75 MG/0.5ML Solution Auto-injector injection, 0.5 mL once a week., Disp: , Rfl: Ciprofloxacin 500 MG tablet, Take 1 tablet by mouth 2 times daily., Disp: , Rfl: ALLERGIES: Allergies Allergen Reactions Bactrim [Sulfamethoxazole-Trimethoprim] Blisters Codeine Swelling Penicillins Rash FOCUSED REVIEW OF SYSTEMS: Patient denies melena, hematochezia or hematemesis (unless as detailed in HPI.) Patient denies intractable vomiting, yellowing of eyes or skin, odynophagia, excessive belching, significant fecal incontinence. VITAL SIGNS: Vitals: 06/23/24 1223 BP: 102/66 Pulse: 94 Resp: 20 Temp: 97.5 degrees F (36.4 degrees C) TempSrc: Infrared SpO2: 96% Height: 1.524 m (5') PREPROCEDURE PHYSICAL EXAM: AIRWAY: Mallampati: Class II (complete visualization of the uvula) HEART: RRR PULMONARY: Normal respiratory effort and rate, no respiratory distress, no wheezes, no accessory muscle use, or nasal flaring, ABDOMEN: Soft, nontender, nondistended ASSESSMENT: Leroy Tyler is a 58 y.o. female is ready for the planned procedure. ASA Class: ASA 3 - Patient with moderate systemic disease with functional limitations PLAN: Will plan to proceed with EUS using Monitored Anesthesia Care. Blas Merrill MD documented in this [facility]11-18-2024 Evaluation note * Diagnosis Onset Date Resolution Status Admit Date Diabetes chronic June 08, 2024 12:54pm Hypertension chronic May 12:54pm Hypothyroidism chronic May 222023 12:54pm Obesity chronic June 08, 2024 12:54pm NAFLD (nonalcoholic fatty li giovanna disease) chronic July 28 10:12am Neuroendocrine tumor chronic 2024 10:12am Gastroparesis acute July 12:24pm Neuroendocrine tumor chronic 2024 12:24pm Asthma acute September 04, 2024 12:37pm Hypoxemia acute September 04, 2024 12:37pm Obstructive sleep apnea acute [facility] 2024 12:37pm Diabetes chronic September 24 1:02pm High triglycerides chronic September 24, 2024 1:02pm Hypertension chronic September 24, 2 025 1:02pm Hypothyroidism chronic September 24, 2024 1:02pm Neuropathy chronic September 24 1:02pm Obesity chronic September 24 1:02pm [facility] Work Phone: 1(790) 763-503211-01-2024 Note. MICRO - Microbiology PROCEDURE: Urine Culture [*1] SOURCE: Urine, Clean Catch BODY SITE: COLLECTED DATE/TIME: 05/21/2024 09:24 EDT RECEIVED DATE/TIME: 05/21/2024 16:13 EDT START DATE/TIME: 05/21/2024 16:14 EDT FREE TEXT SOURCE: FINAL REPORTS Final Report [] Verified Date/Time/Personnel: 05/22/2024 14:03 EDT 50,000 - 100,000 cfu/ml Mixed growth consistent with normal urogenital keiko. Performing Locations *1: This test was performed at: [facility], [address] [place] [address], [id number] , [facility]10-17-2024 History and physical note* Karolina Piedra, GOLD BLOWER-DRILL HAND, DNP - 05/07/2024 8:30 AM EDT Images from the original note were not included. Chief Complaint: Chief Complaint Patient presents with New Patient Clinical Care Team: Referring Provider: Joseluis Riggins MB* Primary Care Provider: Vero Ortez History of Present Illness: Ms. Tyler is a 58 y.o. female with a past medical history significant for DMII, Htn, HLD, obesity,depression, anxiety, use of supplemental O2 ATC - 2L/NC, KODI - she is not using her CPAP, only O2 (is supposed to use CPAP). 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 Oncologic History: Leroy Tyler initially presented with c/o abdominal pain, GI bleed. 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 Ms. Tyler is here today unaccompanied for her appointment. She complains of occasional nausea, occasional constipation, fatigue. Denies abd pain constant, but report occasional post prandial pain.. Past Medical History: Diagnosis Date Anxiety Arthritis Cirrhosis of liver Diabetes mellitus GERD (gastroesophageal reflux disease) History of cancer Hyperlipidemia Hyperthyroidism Liver disease KODI (obstructive sleep apnea) Renal disease Past Surgical History: Procedure Laterality Date COLONOSCOPY DIAGNOSTIC 2017 x 2 DILATION AND CURETTAGE LAP CHOLECYSTECTOMY [facility] Allergies Allergen Reactions Bactrim [Sulfamethoxazole-Trimethoprim] Blisters Codeine Swelling Penicillins Rash Current Outpatient Medications Medication Sig Dispense Refill Albuterol 108 (90 Base) MCG/ACT Aero Soln inhaler Inhale 1 puff every 6 hours as needed for Shortness of Breath. Atorvastatin 20 MG tablet Take 1 tablet by mouth daily. Ciprofloxacin 500 MG tablet Take 1 tablet by mouth 2 times daily. diclofenac EC [address] tablet Take 1 tablet by mouth 2 times daily. ferrous sulfate 325 (65 Fe) MG Tab DR tablet DR Take 1 tablet by mouth 3 times daily with meals. FLUoxetine 40 MG capsule Take 1 capsule by mouth daily. fluticasone 50 MCG/ACT Suspension nasal spray 2 sprays by Nasal route daily. Levonorgestrel (Mirena, 52 MG,) 20 MCG/DAY 1 Intra Uterine Device by Intrauterine route. Levothyroxine 200 MCG tablet Take 1 tablet by mouth daily. 1.5 on Sundays NovoLOG FlexPen 100 UNIT/ML Solution Pen-injector injection Inject 90 Units under the skin. Pantoprazole [address] tablet DR Take 1 tablet by mouth daily. Trulicity 0.75 MG/0.5ML Solution Auto-injector injection 0.5 mL once a week. No current facility-administered medications for this visit. Social History Socioeconomic History Marital status: Single Spouse name: Not on file Number of children: Not on file Years of education: Not on file Highest education level: Not on file Occupational History Not on file Tobacco Use Smoking status: Former Types: Cigarettes Smokeless tobacco: Never Vaping Use Vaping status: Never Used Substance and Sexual Activity Alcohol use: Not Currently Drug use: Not Currently Sexual activity: Not on file Other Topics Concern Not on file Social History Narrative Lives alone Social Determinants of Health Financial Resource Strain: Low Risk (02/08/2021) Received from [facility] Overall Financial Resource Strain (CARDIA) Difficulty of Paying Living Expenses: Not very hard Food Insecurity: No Food Insecurity (02/08/2021) Received from [facility] Hunger Vital Sign Worried About Running Out of Food in the Last Year: Never true Ran Out of Food in the Last Year: Never true Transportation Needs: No Transportation Needs (02/08/2021) Received from [facility] PRAPARE - Transportation Lack of Transportation (Medical): No Lack of Transportation (Non-Medical): No Physical Activity: Inactive (02/08/2021) Received from [facility] Exercise Vital Sign Days of Exercise per Week: 0 days Minutes of Exercise per Session: 0 min Stress: Not on file Social Connections: Socially Isolated (02/08/2021) Received from [facility] Social Connection and Isolation Panel [NHANES] Frequency of Communication with Friends and Family: Twice a week Frequency of Social Gatherings with Friends and Family: Twice a week Attends Bahai Services: Never Active Member of Clubs or Organizations: No Attends Club or Organization Meetings: Never Marital Status: Never Intimate Partner Violence: Not on file Housing Stability: Not on file Family History Problem Relation Age of Onset Breast Cancer Mother 63 Lung Cancer Father 53 non smoker Thyroid Disease Maternal Grandmother Coronary Artery Disease Maternal Grandfather Myocardial Infarction Maternal Grandfather Review of Systems: Negative for additional constitutional, HEENT, cardiovascular, respiratory, gastrointestinal, genitourinary, musculoskeletal, integumentary, neurological, psychiatric, endocrine, or hematologic/lymphatic complaints aside from what is noted in the history of present illness above. Physical Exam: Vitals: BP 128/67 Pulse 87 Temp 97.8 F (36.6 C) (Infrared) Resp 18 Ht 1.523 m (4' 11.96) Comment: w/o shoes Wt 107.5 kg (237 lb) Comment: w/o shoes SpO2 95% Comment: 2 liters of oxygen BMI 46.35 kg/m Smoking Status Former General: The patient is a obese female who appears her stated age of 58 y.o. Neuro/Psych: Her speech patterns and movements are normal. Her affect is appropriate. She is oriented to person, place and time. Recent and remote memory is intact. HEENT: Normocephalic, atraumatic. EOMI. The sclera are anicteric. The mucous membranes are moist. Hearing is grossly intact. Neck: The trachea is in the midline. Neck is supple without lymphadenopathy or thyromegaly. Lungs/Chest: Clear to auscultation bilaterally without wheezes/rales/rhonchi; supplemental O2 ATC Cardiac: Regular rate and rhythm without murmurs. Abd: Soft, NT/ND. No hepatosplenomegaly, ascites or hernia. Musculoskeletal:Normal range of motion in all four extremities, with normal strength equally and symmetrically. Warm and dry, 2+ peripheral pulses, no edema Lymphatics: There is no suspicious submandibular, cervical, supraclavicular lymphadenopathy. Integumentary: Skin is warm and dry. Flush, pallor and rash absent. Well healed incisions prior surgery ECOG Performance Status: 3 3 - Symptomatic, >50% in bed, but not bedbound (Capable of only limited self- care, confined to bed or chair 50% or more of waking hours) Laboratory evaluation: Lab Results Component Value Date SODIUM 134 (L) 05/07/2024 POTASSIUM 4.6 05/07/2024 CHLORIDE 99 05/07/2024 CO2 32 (H) 05/07/2024 BUN 16 05/07/2024 CREATSERUM 0.71 05/07/2024 GLUCOSE 197 (H) 05/07/2024 Lab Results Component Value Date WBC 8.85 05/07/2024 HGB 11.2 (L) 05/07/2024 HCT 36.4 05/07/2024 PLATELET 282 05/07/2024 MCV 81.4 05/07/2024 No results found for: HGBA1C Lab Results Component Value Date ALT 21 05/07/2024 AST 22 05/07/2024 ALKPHOS 125 05/07/2024 BILITOTAL 0.5 05/07/2024 Tumor Markers: No results found for: CEA, CA199, AFPTMRMKR, CHROMOGRANA, CA125 Radiographic/ Diagnostic evaluation: CT abd/p OSH 04/03/2024: CTA chest OSH 04/03/2024: Pathology: 04/04/2024 Assessment Ms. Tyler is a 58 y.o. female with a history of gastric NET Ki67 3%. This was resected endoscopically OSH on 04/04/2024. We will review for completeness of resection and grade of tumor as well as eval with Ga PET. Plan Patient seen and evaluated by myself and , all available relevant imaging and labs reviewed, and the plan was developed collaboratively. Pathology review here Ga PET EUS RTC 2 months to discuss, telephone visit Orders Placed This Encounter NUC PET NEUROENDOCRINE GASTRIN - NON-STIMULATED CHROMOGRANIN A CBC, EDIF, PLATELET COMPREHENSIVE METABOLIC PANEL AMB REFERRAL TO PATHOLOGY UPPER EUS All questions were answered to the patient's satisfaction. She was instructed to call the office with any further questions. Total time DRILL HAND spent prior to patient visit obtaining and reviewing records, and with patient reviewing HPI, pertinent medical, surgical and social history and conducting physical exam: 25 minutes. Karolinator Piedra DNP, ELMER Nurse Practitioner, GI Surgical Oncology [facility]10-17-2024 History and physical note* ELMER Dumont DNP - 05/07/2024 8:30 AM EDT Images from the original note were not included. Chief Complaint: Chief Complaint Patient presents with New Patient Clinical Care Team: Referring Provider: Joseluis Riggins MB* Primary Care Provider: Vero Ortez History of Present Illness: Ms. Tyler is a 58 y.o. female with a past medical history significant for DMII, Htn, HLD, obesity,depression, anxiety, use of supplemental O2 ATC - 2L/NC, KODI - she is not using her CPAP, only O2 (is supposed to use CPAP). 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 Oncologic History: Leroy Tyler initially presented with c/o abdominal pain, GI bleed. 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 Ms. Tyler is here today unaccompanied for her appointment. She complains of occasional nausea, occasional constipation, fatigue. Denies abd pain constant, but report occasional post prandial pain.. Past Medical History: Diagnosis Date Anxiety Arthritis Cirrhosis of liver Diabetes mellitus GERD (gastroesophageal reflux disease) History of cancer Hyperlipidemia Hyperthyroidism Liver disease KODI (obstructive sleep apnea) Renal disease Past Surgical History: Procedure Laterality Date COLONOSCOPY DIAGNOSTIC 2017 x 2 DILATION AND CURETTAGE LAP CHOLECYSTECTOMY [facility] Allergies Allergen Reactions Bactrim [Sulfamethoxazole-Trimethoprim] Blisters Codeine Swelling Penicillins Rash Current Outpatient Medications Medication Sig Dispense Refill Albuterol 108 (90 Base) MCG/ACT Aero Soln inhaler Inhale 1 puff every 6 hours as needed for Shortness of Breath. Atorvastatin 20 MG tablet Take 1 tablet by mouth daily. Ciprofloxacin 500 MG tablet Take 1 tablet by mouth 2 times daily. diclofenac EC [address] tablet Take 1 tablet by mouth 2 times daily. ferrous sulfate 325 (65 Fe) MG Tab DR tablet DR Take 1 tablet by mouth 3 times daily with meals. FLUoxetine 40 MG capsule Take 1 capsule by mouth daily. fluticasone 50 MCG/ACT Suspension nasal spray 2 sprays by Nasal route daily. Levonorgestrel (Mirena, 52 MG,) 20 MCG/DAY 1 Intra Uterine Device by Intrauterine route. Levothyroxine 200 MCG tablet Take 1 tablet by mouth daily. 1.5 on Sundays NovoLOG FlexPen 100 UNIT/ML Solution Pen-injector injection Inject 90 Units under the skin. Pantoprazole [address] tablet DR Take 1 tablet by mouth daily. Trulicity 0.75 MG/0.5ML Solution Auto-injector injection 0.5 mL once a week. No current facility-administered medications for this visit. Social History Socioeconomic History Marital status: Single Spouse name: Not on file Number of children: Not on file Years of education: Not on file Highest education level: Not on file Occupational History Not on file Tobacco Use Smoking status: Former Types: Cigarettes Smokeless tobacco: Never Vaping Use Vaping status: Never Used Substance and Sexual Activity Alcohol use: Not Currently Drug use: Not Currently Sexual activity: Not on file Other Topics Concern Not on file Social History Narrative Lives alone Social Determinants of Health Financial Resource Strain: Low Risk (02/08/2021) Received from [facility] Overall Financial Resource Strain (CARDIA) Difficulty of Paying Living Expenses: Not very hard Food Insecurity: No Food Insecurity (02/08/2021) Received from [facility] Hunger Vital Sign Worried About Running Out of Food in the Last Year: Never true Ran Out of Food in the Last Year: Never true Transportation Needs: No Transportation Needs (02/08/2021) Received from [facility] PRAPARE - Transportation Lack of Transportation (Medical): No Lack of Transportation (Non-Medical): No Physical Activity: Inactive (02/08/2021) Received from [facility] Exercise Vital Sign Days of Exercise per Week: 0 days Minutes of Exercise per Session: 0 min Stress: Not on file Social Connections: Socially Isolated (02/08/2021) Received from [facility] Social Connection and Isolation Panel [NHANES] Frequency of Communication with Friends and Family: Twice a week Frequency of Social Gatherings with Friends and Family: Twice a week Attends Bahai Services: Never Active Member of Clubs or Organizations: No Attends Club or Organization Meetings: Never Marital Status: Never Intimate Partner Violence: Not on file Housing Stability: Not on file Family History Problem Relation Age of Onset Breast Cancer Mother 63 Lung Cancer Father 53 non smoker Thyroid Disease Maternal Grandmother Coronary Artery Disease Maternal Grandfather Myocardial Infarction Maternal Grandfather Review of Systems: Negative for additional constitutional, HEENT, cardiovascular, respiratory, gastrointestinal, genitourinary, musculoskeletal, integumentary, neurological, psychiatric, endocrine, or hematologic/lymphatic complaints aside from what is noted in the history of present illness above. Physical Exam: Vitals: BP 128/67 Pulse 87 Temp 97.8 F (36.6 C) (Infrared) Resp 18 Ht 1.523 m (4' 11.96) Comment: w/o shoes Wt 107.5 kg (237 lb) Comment: w/o shoes SpO2 95% Comment: 2 liters of oxygen BMI 46.35 kg/m Smoking Status Former General: The patient is a obese female who appears her stated age of 58 y.o. Neuro/Psych: Her speech patterns and movements are normal. Her affect is appropriate. She is oriented to person, place and time. Recent and remote memory is intact. HEENT: Normocephalic, atraumatic. EOMI. The sclera are anicteric. The mucous membranes are moist. Hearing is grossly intact. Neck: The trachea is in the midline. Neck is supple without lymphadenopathy or thyromegaly. Lungs/Chest: Clear to auscultation bilaterally without wheezes/rales/rhonchi; supplemental O2 ATC Cardiac: Regular rate and rhythm without murmurs. Abd: Soft, NT/ND. No hepatosplenomegaly, ascites or hernia. Musculoskeletal:Normal range of motion in all four extremities, with normal strength equally and symmetrically. Warm and dry, 2+ peripheral pulses, no edema Lymphatics: There is no suspicious submandibular, cervical, supraclavicular lymphadenopathy. Integumentary: Skin is warm and dry. Flush, pallor and rash absent. Well healed incisions prior surgery ECOG Performance Status: 3 3 - Symptomatic, >50% in bed, but not bedbound (Capable of only limited self- care, confined to bed or chair 50% or more of waking hours) Laboratory evaluation: Lab Results Component Value Date SODIUM 134 (L) 05/07/2024 POTASSIUM 4.6 05/07/2024 CHLORIDE 99 05/07/2024 CO2 32 (H) 05/07/2024 BUN 16 05/07/2024 CREATSERUM 0.71 05/07/2024 GLUCOSE 197 (H) 05/07/2024 Lab Results Component Value Date WBC 8.85 05/07/2024 HGB 11.2 (L) 05/07/2024 HCT 36.4 05/07/2024 PLATELET 282 05/07/2024 MCV 81.4 05/07/2024 No results found for: HGBA1C Lab Results Component Value Date ALT 21 05/07/2024 AST 22 05/07/2024 ALKPHOS 125 05/07/2024 BILITOTAL 0.5 05/07/2024 Tumor Markers: No results found for: CEA, CA199, AFPTMRMKR, CHROMOGRANA, CA125 Radiographic/ Diagnostic evaluation: CT abd/p OSH 04/03/2024: CTA chest OSH 04/03/2024: Pathology: 04/04/2024 Assessment Ms. Tyler is a 58 y.o. female with a history of gastric NET Ki67 3%. This was resected endoscopically OSH on 04/04/2024. We will review for completeness of resection and grade of tumor as well as eval with Ga PET. Plan Patient seen and evaluated by myself and , all available relevant imaging and labs reviewed, and the plan was developed collaboratively. Pathology review here Ga PET EUS RTC 2 months to discuss, telephone visit Orders Placed This Encounter NUC PET NEUROENDOCRINE GASTRIN - NON-STIMULATED CHROMOGRANIN A CBC, EDIF, PLATELET COMPREHENSIVE METABOLIC PANEL AMB REFERRAL TO PATHOLOGY UPPER EUS All questions were answered to the patient's satisfaction. She was instructed to call the office with any further questions. Total time DRILL HAND spent prior to patient visit obtaining and reviewing records, and with patient reviewing HPI, pertinent medical, surgical and social history and conducting physical exam: 25 minutes. Karolina Piedra DNP, KHADIJAH-ALEXEI Nurse Practitioner, GI Surgical Oncology [facility] History of Present illness Narrative* Blas Rod MD - 05/07/2024 8:30 AM EDT Surgical Oncology Attending Leroy Tyler is a 58yo F who recently presented with abdominal pain. CT A/P shows an intraluminal gastric mass. There is no regional lymphadenopathy, distant disease, but hepatosplenomegaly is seen.She underwent endoscopy which revealed a large polyp in the cardia/body with evidence of recent bleeding. Lft technique was used for endoscopic resection which was recorded as complete. Pathology showed 2.5cm well-differentiated neuroendocrine tumor Ki67 3%. She has multiple medical problems with limited functional status and used oxygen around the clock. The remainder of the history and physicalare available in the note by Karolina Piedra NP which I have reviewed and agree with. 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 While optimal management would includesurgical resection of the area with selective lympahdenectomy, she is likely not a surgical candidate but also a less invasive approach could be reasonable alternative for her. Will review pathology here with special attention to margin status. Will check Ga-PET to evaluate for regional or distant disease. Then she will need repeat EGD/EUS to assess for residual tumor. Afterwards, we will meet again to discuss these results and finalize our plan. I had a long conversation with Leroy about the natural history, prognosis, and management of gastric NETs. She asked several insightful questions which I answered to their satisfaction. They are encouraged to contact me if additional questions or concerns arise. documented [facility] this [facility] Instructions* Patient Instructions* Mari Kaba RN - 05/07/2024 8:30 AM EDT Survey Following your visit today, you may receive a survey via text or email asking about your experience. We are always looking for ways to improve your visit. Please share your feedback and comments withus- We would love to hear from you! Medicaid Managed Care Plan Transportation Scheduling Line ([phone]) Call Sandy, family service caseworker, with questions or issues [phone] documented in this [facility]U [facility] Note* Exam Date Time Procedure Performing Provider Status 05/05/24 8:35 AM Echocardiogram, Adult - CV Auth (Verified) [facility] 09-17-[address] [facility]09-09-2024 Hospital Discharge instructions Patient Education 03/30/2024 03:45:06 Carpal Tunnel Syndrome Carpal Tunnel Syndrome Carpal tunnel syndrome is a painful condition of the wrist and arm. It is caused by pressure on themedian nerve. The median nerve is one of the nerves that give feeling and movement to the hand. It passes through a tunnel in the wrist called the carpal tunnel. This tunnel is made up of bones and ligaments. Narrowing of this tunnel or swelling of the tissues inside the tunnel puts pressure on themedian nerve. This causes numbness, pins and needles, or electric shooting pains in your hand and forearm. Often the pain is worse at night and may wake you when you are asleep. Carpal tunnel syndrome may occur during and with use of control pills. It is more common in workers who must often bend their wrists. It is also common in people who work with power tools that cause strong vibrations. Home care Rest the painful wrist. Avoid repeated bending of the wrist back and forth. This puts pressure on the median nerve. Avoid using power tools with strong vibrations. If you were given a splint, wear it at night while you sleep. You may also wear it during the day for comfort. Move your fingers and wrists often to prevent stiffness. Elevate your arms on pillows when you lie down. Try using the unaffected hand more. Try not to hold your wrists in a bent, downward position. Sometimes changes in the work place may ease symptoms. If you type most of the day, it may help to change the position of your keyboard or add a wrist support. Your wrist should be in a neutral position and not bent back when typing. You may use myna-vxf-zshhfeb pain medicine to treat pain and inflammation, unless another medicine was prescribed. Anti-inflammatory pain medicines, such as ibuprofen or naproxen may be more effective than acetaminophen, which treats pain, but not inflammation. If you have chronic liver or kidney disease or ever had a stomach ulcer or gastrointestinal bleeding, talk with your healthcare provider before using these medicines. Opioid pain medicine will only give temporary relief and does not treat the problem. If pain continues, you may need a shot of a steroid drug into your wrist. If the above methods fail, you may need surgery. This will open the carpal tunnel and release the pressure on the trapped nerve. Follow-up care Follow up with your healthcare provider, or as advised. If X-rays were taken, you will be notified of any new findings that may affect your care. When to seek medical advice Call your healthcare provider right away if any of these occur: Pain not improving with the above treatment Fingers or hand become cold, blue, numb, or tingly Your whole arm becomes swollen or weak [id number] [employer] [place] [address]. All rights reserved. This information is not intended as a substitute for professional medical care. Always follow yourhealthcare professional's instructions. Follow Up Care 03/30/2024 02:46:19 With:VERO ORTEZ Address: [address] [place] [address] [phone] When:2-4 days [facility] 09-09-2024 Note Discharge Instructions Thank you for allowing [facility] to assist you with your healthcare needs. The following is importantdischarge information regarding your hospital visit. Diagnosis from Today's Visit Wrist pain What to Do Next Instructions from Your Care Team No qualifying data available. Post Acute Orders No qualifying data available. You Need to Schedule the Following Appointments Follow Up with VERO ORTEZ When:Within 2-4 days Where:[address] [place] [phone] Allergies Bactrim Blisters codeine Swelling penicillin Rash sulfa drug Medications Please ask your primary doctor or pharmacist before taking any other medication not listed, including over the counter drugs, herbal medications, vitamins and or supplements as they may interact withyour home medications. What How Much When Why Instructions Last Dose Unchanged amLODIPine (amLODIPine 2.5 mg oral tablet) 1 tab(s) by mouth Once a day Unchanged atorvastatin (atorvastatin 20 mg oral tablet) 1 tab(s) by mouth Once a day Duration: 90 Days Unchanged dicyclomine (dicyclomine 10 mg oral capsule) 1 cap by mouth Four (4) times a day Duration: 5 Days Unchanged DME (DME MISCellaneous) See instructions Carpal tunnel syndrome of right wrist Pain and swelling of right wrist Carpal Tunnel Brace to right wrist QHS Unchanged dulaglutide (Trulicity Pen 0.75 mg/ 0.5 mL subcutaneous solution) Unchanged ferrous sulfate by mouth Unchanged FLUoxetine (FLUoxetine 40 mg oral capsule) 1 cap by mouth Once a day Duration: 90 Days Unchanged furosemide (furosemide 20 mg oral tablet) 1 tab(s) by mouth Once a day as needed for Swelling Unchanged insulin regular (HumuLIN R KwikPEN (CONCENTRATED) insulin 500 units/ mL 3 mL) Subcutaneous (INT) Unchanged levothyroxine (levothyroxine 200 mcg (0.2 mg) oral tablet) 1 tab(s) by mouth Once a day Duration: 30 Days Unchanged metFORMIN (metFORMIN 500 mg oral tablet (IR)) 1 tab(s) by mouth Two (2) times a day Unchanged naproxen (naproxen 500 mg oral tablet) 1 tab(s) by mouth Two (2) times a day Carpal tunnel syndrome of right wrist Pain and swelling of right wrist Duration: 15 Days Unchanged omeprazole (omeprazole 40 mg oral delayed release capsule) 1 cap by mouth Once a day Indigestion Please take this list to your next doctor s visit. Bring all medications you take, including over the counter medications, herbals and other supplements with you to your doctor s visit. Patients and families are reminded to discard old lists and to update any records with all medication providers or retail pharmacies. Education Materials Carpal Tunnel Syndrome Carpal tunnel syndrome is a painful condition of the wrist and arm. It is caused by pressure on themedian nerve. The median nerve is one of the nerves that give feeling and movement to the hand. It passes through a tunnel in the wrist called the carpal tunnel. This tunnel is made up of bones and ligaments. Narrowing of this tunnel or swelling of the tissues inside the tunnel puts pressure on themedian nerve. This causes numbness, pins and needles, or electric shooting pains in your hand and forearm. Often the pain is worse at night and may wake you when you are asleep. Carpal tunnel syndrome may occur during and with use of control pills. It is more common in workers who must often bend their wrists. It is also common in people who work with power tools that cause strong vibrations. Home care Rest the painful wrist. Avoid repeated bending of the wrist back and forth. This puts pressure on the median nerve. Avoid using power tools with strong vibrations. If you were given a splint, wear it at night while you sleep. You may also wear it during the day for comfort. Move your fingers and wrists often to prevent stiffness. Elevate your arms on pillows when you lie down. Try using the unaffected hand more. Try not to hold your wrists in a bent, downward position. Sometimes changes in the work place may ease symptoms. If you type most of the day, it may help to change the position of your keyboard or add a wrist support. Your wrist should be in a neutral position and not bent back when typing. You may use mrat-fjr-irtcyql pain medicine to treat pain and inflammation, unless another medicine was prescribed. Anti-inflammatory pain medicines, such as ibuprofen or naproxen may be more effective than acetaminophen, which treats pain, but not inflammation. If you have chronic liver or kidney disease or ever had a stomach ulcer or gastrointestinal bleeding, talk with your healthcare provider before using these medicines. Opioid pain medicine will only give temporary relief and does not treat the problem. If pain continues, you may need a shot of a steroid drug into your wrist. If the above methods fail, you may need surgery. This will open the carpal tunnel and release the pressure on the trapped nerve. Follow-up care Follow up with your healthcare provider, or as advised. If X-rays were taken, you will be notified of any new findings that may affect your care. When to seek medical advice Call your healthcare provider right away if any of these occur: Pain not improving with the above treatment Fingers or hand become cold, blue, numb, or tingly Your whole arm becomes swollen or weak [phone] The [employer]. [address] [place] [address], [place] [address]. All rights reserved. This information is not intended as a substitute for professional medical care. Always follow yourhealthcare professional's instructions. Additional Information VACCINATE! IT SAVES LIVES! Members of the community who have not yet received the COVID-19 vaccine and would like to receive it can visit one of [facility] vaccine clinics. There are many vaccine clinic locations within the [facility]. For locations and available times, please visit www.gettheshot.coronavirus.[place].gov/. It is important to note that some COVID mobile vaccine clinics are held outdoors and may be canceled in rainy or stormy conditions. To learn more about pediatric vaccinations (ages 5-11), we invite you to visit the [facility] webpage. https://www.[employer] ([employer]: [place]s.org/pages/4158-Tusfz-Kwwhzxbcswp-Lxcuwxyecu-Nombz-Yrz stions.htmlTo learn more about the COVID-19 vaccine, we invite you to visit the CDC website for a list of frequently asked questions. https://www.cdc.gov/coronavirus/2019-ncov/vaccines/faq.html [facility] Patient Portal Access Instructions: Stay connected with your healthcare team and access your personal medical information anytime with the [facility] Patient Portal. If you would like a full copy of your medical records please contact the [facility] Medical Records Department Saturday through Saturday between 8a.m. and 4:30p.m. Please follow the directions below to access the portal: 1.Access the email account you provided upon registration to the hospital.2.Look for an invitation email from [facility].3.Open the email and access the invitation link: Accept Invitation to [facility]4.Fill in the required hatch to create your account. Sign into www.[employer] with your username and password that you created in the above steps to stay up to date. You can then view a summary of results, a summary of your visits, and the ability to download your summaries to your computer or send the information securely to a physician. Remember that your healthcare information is confidential, so carefully consider who you will allow to register on the [facility] Patient Portal for access to your information. You can also access the [facility] Patient Portal on the MobileTag bong. Simply click on Health Records under [employer] and then click on the [facility] logo. HOW TO SAFELY DISPOSE OF PRESCRIPTION MEDICATIONS Please use one of the following methods to safely dispose of your unused medications. 1.Use a drug disposal kit: the drug disposal pouch allows you to safely discard your old and unuseddrugs. Ask your nurse to give you one when you are discharged.2.Visit a local take-back location: Many local pharmacies and police departments have programs that collect old and unwanted prescriptiondrugs. Call your local pharmacy or go to http://Sentiment.Kickit With/0S6Pn6i to find one close to you.3.Make use of household items: Use cat litter or old coffee grounds to dispose medications if other options arenot available. Mix your drugs with these household products, seal them in an airtight container andthrow it into the garbage. Call [facility]: [phone] to be sure your drugs can be disposed of in this way. Some medicines may require a different approach.4.Never flush your medications down the toilet. IF YOU HAVE BEEN PRESCRIBED AN OPIOIDS FOR PAIN If you have been prescribed an opioid (such as hydrocodone, oxycodone or morphine), it is critical to understand the possible side effects and risks of opioid pain medications. Even when taken as directed, opioids can have several side effects including: Tolerance, meaning you might need to take more of a medication for the same pain relief. Nausea, vomiting and/or constipation. Sleepiness, dizziness, dry mouth, confusion, depression or itching. Physical dependence, meaning you have withdrawal symptoms when a medication is stopped ? this can develop within a few days. KNOW YOUR RESPONSIBILITIES It is important to know exactly how much and how often to take the opioid pain medications you are prescribed. Never take opioids in higher amounts or more often than prescribed. Do not combine opioids with alcohol or other drugs that cause drowsiness, such as benzodiazepines, also known as benzos,including diazepam and alprazolam, muscle relaxants or sleep aids. Never sell or share prescriptionopioids. This is illegal. Store opioids in a secure place and out of reach of others (including children, family, friends and visitors). The last page(s) of this document has been signed and retained as a CHART COPY Signatures Patient Education Materials Carpal Tunnel Syndrome Medication Leaflets My discharge plan and instructions have been reviewed and explained to me and JAYSON Olivas TERESA J understand my current condition and have read and understand these discharge instructions. I have received a written copy of the plan/instructions. If I have questions, I am aware that I should contact my doctor. 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 HISTORY: ORDERING SYSTEM PROVIDED HISTORY: Reason for Exam: pain FINDINGS: No acute findings. No fracture or dislocation. There is suspected mild soft tissue swelling throughout the wrist. Minimal degenerative changes of the wrist are noted. IMPRESSION: No acute findings. Interpreted by: Francisco Latham MD Preliminary Report By: Francisco Latham MD Electronically signed By Francisco Latham MD Dictated Date: 03/30/2024 3:28:48 AM Prelim Date: 03/30/2024 3:29:35 AM Sign Date: 03/30/2024 3:29:35 AM [facility] Note. MICRO - Microbiology PROCEDURE: Urine Culture [*1] SOURCE: Urine, Clean Catch BODY SITE: COLLECTED DATE/TIME: 03/16/2024 08:01 EDT RECEIVED DATE/TIME: 03/17/2024 19:15 EDT START DATE/TIME: 03/17/2024 19:15 EDT FREE TEXT SOURCE: FINAL REPORTS Final Report [] Verified Date/Time/Personnel: 03/19/2024 07:26 EDT 10,000 - 50,000 cfu/ml Enterococcus faecalis PRELIMINARY REPORTS Preliminary Report [] Verified Date/Time/Personnel: 03/18/2024 11:27 EDT 10,000 - 50,000 cfu/ml Enterococcus faecalis SHAHEEN to follow SUSCEPTIBILITY RESULTS Enterococcus faecalis Antibiotic SHAHEEN Dilut SHAHEEN Inter Ampicillin <=2 Susceptible Ciprofloxacin <=1 Susceptible Gentamicin <=500 Susceptible synergy ID Panel Not Not Applicable Applicable Levofloxacin <=1 Susceptible Nitrofurantoin <=32 Susceptible Vancomycin 1 Susceptible Performing Locations *1: This test was performed at: [address], [facility] , Counts include 234 beds at the [facility]03-16-2024 Note ORIGINAL EXAMINATION: ONE SUPINE XRAY VIEW(S) OF THE ABDOMEN03/16/2024 8:55 am COMPARISON: CT 02/25/2024 HISTORY: ORDERING SYSTEM PROVIDED HISTORY: Reason for Exam: left ureteral stone, FINDINGS: No urinary calculus is identified on this study. Kidneys are partially obscured by a large amount of stool in the colon. An IUD is present in the pelvis and there is a right-sided pelvic calcification shown to be a fibroid on CT. IMPRESSION: No urinary calculus is seen. Interpreted by: Abdi Montana MD Preliminary Report By: Abdi Montana MD Electronically signed By Abdi Montana MD Dictated Date: 03/16/2024 9:04:50 AM Prelim Date: 03/16/2024 9:06:05 AM Sign Date: 03/16/2024 9:06:05 AM Ordering Provider: [facility]08-17-[address] [facility]08-08-2024 Note. MICRO - Microbiology PROCEDURE: Urine Culture [O1 *1] SOURCE: Urine BODY SITE: COLLECTED DATE/TIME: 02/25/2024 09:25 EDT RECEIVED DATE/TIME: 02/25/2024 16:13 EDT START DATE/TIME: 02/25/2024 16:13 EDT FREE TEXT SOURCE: FINAL REPORTS Final Report [] Verified Date/Time/Personnel: 02/27/2024 08:58 EDT >100,000 cfu/ml Escherichia coli Refer to previous culture for susceptibility. [id number] >100,000 cfu/ml Escherichia coli #2 Refer to previous culture for susceptibility. [id number] PRELIMINARY REPORTS Preliminary Report [] Verified Date/Time/Personnel: 02/26/2024 12:09 EDT Culture results pending. SUSCEPTIBILITY RESULTS Escherichia coli Antibiotic SHAHEEN Dilut SHAHEEN Inter ID Panel Not Not Applicable Applicable Escherichia coli #2 Antibiotic SHAHEEN Dilut SHAHEEN Inter ID Panel Not Not Applicable Applicable Order Comments O1: Urine Culture Added by Discern Performing Locations *1: This test was performed at: [facility], [address] [place] [address], [facility] , Counts include 234 beds at the [facility] [place]02-27-2024 Note. MICRO - Microbiology PROCEDURE: Urine Culture [*1] SOURCE: Urine, Clean Catch BODY SITE: COLLECTED DATE/TIME: 02/24/2024 13:46 EDT RECEIVED DATE/TIME: 02/24/2024 20:46 EDT START DATE/TIME: 02/24/2024 20:46 EDT FREE TEXT SOURCE: FINAL REPORTS Final Report [] Verified Date/Time/Personnel: 02/27/2024 07:53 EDT >100,000 cfu/ml Escherichia coli >100,000 cfu/ml Escherichia coli #2 PRELIMINARY REPORTS Preliminary Report [] Verified Date/Time/Personnel: 02/26/2024 08:32 EDT >100,000 cfu/ml Escherichia coli SHAHEEN to follow >100,000 cfu/ml Escherichia coli #2 SHAHEEN to follow Preliminary Report [] Verified Date/Time/Personnel: 02/25/2024 09:30 EDT Culture results pending. SUSCEPTIBILITY RESULTS Escherichia coli Antibiotic SHAHEEN Dilut SHAHEEN Inter Ampicillin >16 Resistant Ampicillin/ 16/8 Intermediate Sulbactam Aztreonam 8 Susceptible Cefazolin >16 Resistant Cefotaxime 8 Susceptible Cefuroxime >16 Resistant Ciprofloxacin <=0.25 Susceptible Ertapenem <=0.5 Susceptible Gentamicin 8 Intermediate ID Panel Not Not Applicable Applicable Imipenem <=1 Susceptible Levofloxacin <=0.5 Susceptible Meropenem <=1 Susceptible Minocycline <=4 Susceptible Nitrofurantoin <=32 Susceptible Piperacillin/ <=8 Susceptible Tazobactam Tobramycin <=2 Susceptible Trimethoprim/ <=0.5/9.5 Susceptible Sulfa Escherichia coli #2 Antibiotic SAHHEEN Dilut SHAHEEN Inter Ampicillin >16 Resistant Ampicillin/ 16/8 Intermediate Sulbactam Aztreonam <=4 Susceptible Cefazolin >16 Resistant Cefotaxime 8 Susceptible Cefuroxime 8 Susceptible Ciprofloxacin <=0.25 Susceptible Ertapenem <=0.5 Susceptible Gentamicin 8 Intermediate MICRO - Microbiology SUSCEPTIBILITY RESULTS Escherichia coli #2 Antibiotic SHAHEEN Dilut SHAHEEN Inter ID Panel Not Not Applicable Applicable Imipenem <=1 Susceptible Levofloxacin <=0.5 Susceptible Meropenem <=1 Susceptible Minocycline <=4 Susceptible Nitrofurantoin <=32 Susceptible Piperacillin/ <=8 Susceptible Tazobactam Tobramycin 4 Susceptible Trimethoprim/ <=0.5/9.5 Susceptible Sulfa Performing Locations *1: This test was performed at: [facility], [address] [place] [address], [facility] , Counts include 234 beds at the [facility] [place]02-25-2024 Hospital Discharge instructions Patient Education 02/25/2024 14:12:06 Urinary Retention, Female Urinary Retention (Female) Urinary retention is the medical term for difficulty or inability to pass urine, even though your bladder is full. Causes For girls and women, the most common cause of urinary retention is a bladder infection. Certain medicines and changes in the body, such as uterine prolapse, can also cause this problem. Symptoms Some people have no symptoms. For others, common symptoms include: Bladder or lower-abdominal pain or fullness Abdominal swelling Nausea or vomiting Back pain Frequent urination Feeling that the bladder is still full after urinating Incontinence (not being able to control the release of urine) Treatment This condition is treated by inserting a tube (catheter) into the bladder to drain the urine. This provides immediate relief. The catheter may need to stay in place for a few days. The catheter has aballoon on the tip, which is inflated after insertion. This prevents the catheter from falling out. Home care If you were given antibiotics to treat a bladder infection, take them until they are used up, or your healthcare provider tells you to stop. It is important to finish the antibiotics even though you feel better. This is to make sure your infection has cleared. If a catheter was left in place, it is important to keep bacteria from getting into the collection bag. Don't disconnect the catheter from the collection bag. Use a leg band to secure the drainage tube, so it does not pull on the catheter. Drain the collection bag when it becomes full using the drain spout at the bottom of the bag. Don't pull on or try to remove your catheter. This will injure your urethra. The catheter must be removed by a healthcare provider. Follow-up care Follow up with your healthcare provider, or as advised. If a catheter was left in place, it can usually be removed within 3 to 7 days. Some conditions require that the catheter stays in longer. Your healthcare provider will tell you when to return to havethe catheter removed. When to seek medical advice Call your healthcare provider right away if any of these occur: Fever of 100.4 F (38 C) or higher, or as directed by your healthcare provider Bladder or lower-abdominal pain or fullness Abdominal swelling, nausea, vomiting, or back pain Blood or urine leakage around the catheter Bloody urine coming from the catheter (if a new symptom) Weakness, dizziness, or fainting Confusion or change in usual level of alertness If a catheter was left in place, return if: oCatheter falls out oCatheter stops draining for 6 hours [id number] The [employer] [place] [address]. All rights reserved. This information is not intended as a substitute for professional medical care. Always follow yourhealthcare professional's instructions. 02/25/2024 14:10:26 High Blood Sugar (Hyperglycemia) High Blood Sugar (Hyperglycemia) Too much sugar (glucose) in your blood is called high blood sugar (hyperglycemia). This can lead toa dangerous condition called ketoacidosis. In severe cases, it can lead to fluid loss (dehydration)and coma. Possible causes of high blood sugar Having a poor treatment plan for diabetes Being sick Being under stress Taking certain medicines, such as steroids Eating too much food, especially carbohydrates Being less active than normal Not taking enough diabetes medicine Symptoms of high blood sugar High blood sugar may not cause symptoms. If you do have symptoms, they may include: Thirst Frequent need to urinate Feeling tired or drowsy Nausea and vomiting Itchy, dry skin Blurry vision Fast breathing and breath that smells fruity Weakness Dizziness Wounds or skin infections that don t heal Unexplained weight loss if hyperglycemia lasts for more than a few days What to do Do the following: Check your blood sugar. Drink plenty of sugar-free, caffeine-free liquids such as water. Don t drink fruit juice. Check your blood sugar again every 4 hours. If you take insulin or diabetes medicines, follow your sick-day plan for taking medicine. Call your healthcare provider if you are not able to eat. Check your blood or urine for ketones as directed. Call your provider if your blood sugar and ketones don't go back to your target range. If the value is high, take your diabetes medicines as prescribed. And check your blood sugar more often. Doses of medicines such as insulin can be increased slightly if blood sugars stay high. But your provider must approve this. Preventing high blood sugar To help keep your blood sugar from getting too high: Control stress. When you're ill, follow your sick-day plan. Follow your meal plan. Eat only the amount of food on your meal plan. Stick to your exercise plan. Take your insulin or diabetes medicines as directed by your healthcare team. Also test your blood sugar as directed. If the plan is not working for you, discuss it with your healthcare provider. Other things to do Carry a medical ID card or a [employer] USB drive. Or wear a medical alert bracelet or necklace. It should say that you have diabetes. It should also say what to do in case you pass out or go into a coma. Make sure family, friends, and coworkers know the signs of high blood sugar. Tell them what to do if your blood sugar gets very high and you can t help yourself. Talk with your healthcare team about other things you can do to prevent high blood sugar. Special note: Drink plenty of sugar-free and caffeine-free liquids when you feel symptoms of hyperglycemia. Call your healthcare provider if you keep having episodes of high blood sugar. [id number] [employer]. [address] [place] [address]. All rights reserved. This information is not intended as a substitute for professional medical care. Always follow yourhealthcare professional's instructions. Follow Up Care 02/25/2024 09:01:39 With:VERO ORTEZ Address: [address] [facility] [place] [address] [phone] When:2-4 days [facility] 08-06-2024 Note Discharge Instructions Thank you for allowing [facility] to assist you with your healthcare needs. The following is importantdischarge information regarding your hospital visit. Diagnosis from Today's Visit Hyperglycemia UTI - Urinary tract infection What to Do Next Instructions from Your Care Team No qualifying data available. Post Acute Orders No qualifying data available. You Need to Schedule the Following Appointments Follow Up with VERO ORTEZ When:Within 2-4 days Where:[address] [facility] [place] [address]- [phone] Allergies Bactrim Blisters codeine Swelling penicillin Rash sulfa drug Medications Please ask your primary doctor or pharmacist before taking any other medication not listed, including over the counter drugs, herbal medications, vitamins and or supplements as they may interact withyour home medications. What How Much When Why Instructions Last Dose New cephalexin (cephalexin 500 mg oral capsule) 1 cap by mouth Three (3) times a day Duration: 7 Days Printed Prescription Unchanged amLODIPine (amLODIPine 2.5 mg oral tablet) 1 tab(s) by mouth Once a day Unchanged atorvastatin (atorvastatin 20 mg oral tablet) 1 tab(s) by mouth Once a day Duration: 90 Days Unchanged dicyclomine (dicyclomine 10 mg oral capsule) 1 cap by mouth Four (4) times a day Duration: 5 Days Unchanged dulaglutide (Trulicity Pen 0.75 mg/ 0.5 mL subcutaneous solution) Unchanged ferrous sulfate by mouth Unchanged FLUoxetine (FLUoxetine 40 mg oral capsule) 1 cap by mouth Once a day Duration: 90 Days Unchanged furosemide (furosemide 20 mg oral tablet) 1 tab(s) by mouth Once a day as needed for Swelling Unchanged insulin regular (HumuLIN R KwikPEN (CONCENTRATED) insulin 500 units/ mL 3 mL) Subcutaneous (INT) Unchanged levothyroxine (levothyroxine 200 mcg (0.2 mg) oral tablet) by mouth Once a day Unchanged metFORMIN (metFORMIN 500 mg oral tablet (IR)) 1 tab(s) by mouth Two (2) times a day Unchanged omeprazole (omeprazole 40 mg oral delayed release capsule) 1 cap by mouth Once a day Indigestion Please take this list to your next doctor s visit. Bring all medications you take, including over the counter medications, herbals and other supplements with you to your doctor s visit. Patients and families are reminded to discard old lists and to update any records with all medication providers or retail pharmacies. Education Materials Urinary Retention (Female) Urinary retention is the medical term for difficulty or inability to pass urine, even though your bladder is full. Causes For girls and women, the most common cause of urinary retention is a bladder infection. Certain medicines and changes in the body, such as uterine prolapse, can also cause this problem. Symptoms Some people have no symptoms. For others, common symptoms include: Bladder or lower-abdominal pain or fullness Abdominal swelling Nausea or vomiting Back pain Frequent urination Feeling that the bladder is still full after urinating Incontinence (not being able to control the release of urine) Treatment This condition is treated by inserting a tube (catheter) into the bladder to drain the urine. This provides immediate relief. The catheter may need to stay in place for a few days. The catheter has aballoon on the tip, which is inflated after insertion. This prevents the catheter from falling out. Home care If you were given antibiotics to treat a bladder infection, take them until they are used up, or your healthcare provider tells you to stop. It is important to finish the antibiotics even though you feel better. This is to make sure your infection has cleared. If a catheter was left in place, it is important to keep bacteria from getting into the collection bag. Don't disconnect the catheter from the collection bag. Use a leg band to secure the drainage tube, so it does not pull on the catheter. Drain the collection bag when it becomes full using the drain spout at the bottom of the bag. Don't pull on or try to remove your catheter. This will injure your urethra. The catheter must be removed by a healthcare provider. Follow-up care Follow up with your healthcare provider, or as advised. If a catheter was left in place, it can usually be removed within 3 to 7 days. Some conditions require that the catheter stays in longer. Your healthcare provider will tell you when to return to havethe catheter removed. When to seek medical advice Call your healthcare provider right away if any of these occur: Fever of 100.4 F (38 C) or higher, or as directed by your healthcare provider Bladder or lower-abdominal pain or fullness Abdominal swelling, nausea, vomiting, or back pain Blood or urine leakage around the catheter Bloody urine coming from the catheter (if a new symptom) Weakness, dizziness, or fainting Confusion or change in usual level of alertness If a catheter was left in place, return if: oCatheter falls out oCatheter stops draining for 6 hours [id number] The [employer]. [address] [facility], [place] [address]. All rights reserved. This information is not intended as a substitute for professional medical care. Always follow yourhealthcare professional's instructions. High Blood Sugar (Hyperglycemia) Too much sugar (glucose) in your blood is called high blood sugar (hyperglycemia). This can lead toa dangerous condition called ketoacidosis. In severe cases, it can lead to fluid loss (dehydration)and coma. Possible causes of high blood sugar Having a poor treatment plan for diabetes Being sick Being under stress Taking certain medicines, such as steroids Eating too much food, especially carbohydrates Being less active than normal Not taking enough diabetes medicine Symptoms of high blood sugar High blood sugar may not cause symptoms. If you do have symptoms, they may include: Thirst Frequent need to urinate Feeling tired or drowsy Nausea and vomiting Itchy, dry skin Blurry vision Fast breathing and breath that smells fruity Weakness Dizziness Wounds or skin infections that don t heal Unexplained weight loss if hyperglycemia lasts for more than a few days What to do Do the following: Check your blood sugar. Drink plenty of sugar-free, caffeine-free liquids such as water. Don t drink fruit juice. Check your blood sugar again every 4 hours. If you take insulin or diabetes medicines, follow your sick-day plan for taking medicine. Call your healthcare provider if you are not able to eat. Check your blood or urine for ketones as directed. Call your provider if your blood sugar and ketones don't go back to your target range. If the value is high, take your diabetes medicines as prescribed. And check your blood sugar more often. Doses of medicines such as insulin can be increased slightly if blood sugars stay high. But your provider must approve this. Preventing high blood sugar To help keep your blood sugar from getting too high: Control stress. When you're ill, follow your sick-day plan. Follow your meal plan. Eat only the amount of food on your meal plan. Stick to your exercise plan. Take your insulin or diabetes medicines as directed by your healthcare team. Also test your blood sugar as directed. If the plan is not working for you, discuss it with your healthcare provider. Other things to do Carry a medical ID card or a [employer] drive. Or wear a medical alert bracelet or necklace. It should say that you have diabetes. It should also say what to do in case you pass out or go into a coma. Make sure family, friends, and coworkers know the signs of high blood sugar. Tell them what to do if your blood sugar gets very high and you can t help yourself. Talk with your healthcare team about other things you can do to prevent high blood sugar. Special note: Drink plenty of sugar-free and caffeine-free liquids when you feel symptoms of hyperglycemia. Call your healthcare provider if you keep having episodes of high blood sugar. [phone] [employer] [place] [address], [place] [address]. All rights reserved. This information is not intended as a substitute for professional medical care. Always follow yourhealthcare professional's instructions. Additional Information VACCINATE! IT SAVES LIVES! Members of the community who have not yet received the COVID-19 vaccine and would like to receive it can visit one of [facility] vaccine clinics. There are many vaccine clinic locations within the [facility]. For locations and available times, please visit www.[email or web address].[place].gov/. It is important to note that some COVID mobile vaccine clinics are held outdoors and may be canceled in rainy or stormy conditions. To learn more about pediatric vaccinations (ages 5-11), we invite you to visit the [facility] webpage. [email or web address]/[email or web address] [email or web address] learn more about the COVID-19 vaccine, we invite you to visit the CDC website for a list of frequently asked questions. https://www.cdc.gov/coronavirus/2019-ncov/vaccines/faq.html [facility] Patient Portal Access Instructions: Stay connected with your healthcare team and access your personal medical information anytime with the [facility] Patient Portal. If you would like a full copy of your medical records please contact the [facility] Medical Records Department Saturday through Saturday between 8a.m. and 4:30p.m. Please follow the directions below to access the portal: 1.Access the email account you provided upon registration to the [facility].2.Look for an invitation email from [facility].3.Open the email and access the invitation link: Accept Invitation to [facility]4.Fill in the required hatch to create your account. Sign into www.[email or web address] with your username and password that you created in the above steps to stay up to date. You can then view a summary of results, a summary of your visits, and the ability to download your summaries to your computer or send the information securely to a physician. Remember that your healthcare information is confidential, so carefully consider who you will allow to register on the [facility] Patient Portal for access to your information. You can also access the [facility] Patient Portal on the [employer]. Simply click on Health Records under [employer] and then click on the [employer] logo. HOW TO SAFELY DISPOSE OF PRESCRIPTION MEDICATIONS Please use one of the following methods to safely dispose of your unused medications. 1.Use a drug disposal kit: the drug disposal pouch allows you to safely discard your old and unuseddrugs. Ask your nurse to give you one when you are discharged.2.Visit a local take-back location: Many local pharmacies and police departments have programs that collect old and unwanted prescriptiondrugs. Call your local pharmacy or go to http://Sentiment.Kickit With/1V5Bx9l to find one close to you.3.Make use of household items: Use cat litter or old coffee grounds to dispose medications if other options arenot available. Mix your drugs with these household products, seal them in an airtight container andthrow it into the garbage. Call [facility]: [phone] to be sure your drugs can be disposed of in this way. Some medicines may require a different approach.4.Never flush your medications down the toilet. IF YOU HAVE BEEN PRESCRIBED AN OPIOIDS FOR PAIN If you have been prescribed an opioid (such as hydrocodone, oxycodone or morphine), it is critical to understand the possible side effects and risks of opioid pain medications. Even when taken as directed, opioids can have several side effects including: Tolerance, meaning you might need to take more of a medication for the same pain relief. Nausea, vomiting and/or constipation. Sleepiness, dizziness, dry mouth, confusion, depression or itching. Physical dependence, meaning you have withdrawal symptoms when a medication is stopped ? this can develop within a few days. KNOW YOUR RESPONSIBILITIES It is important to know exactly how much and how often to take the opioid pain medications you are prescribed. Never take opioids in higher amounts or more often than prescribed. Do not combine opioids with alcohol or other drugs that cause drowsiness, such as benzodiazepines, also known as benzos,including diazepam and alprazolam, muscle relaxants or sleep aids. Never sell or share prescriptionopioids. This is illegal. Store opioids in a secure place and out of reach of others (including children, family, friends and visitors). The last page(s) of this document has been signed and retained as a CHART COPY Signatures Patient Education Materials Urinary Retention, Female High Blood Sugar (Hyperglycemia) Medication Leaflets My discharge plan and instructions have been reviewed and explained to me and I,LEROY TYLER understand my current condition and have read and understand these discharge instructions. I have received a written copy of the plan/instructions. If I have questions, I am aware that I should contact my doctor. 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 Multiplanar reformatted images are provided for review. Automated exposure control, iterative reconstruction, and/or weight based adjustment of the mA/kV was utilized to reduce the radiation dose to as low as reasonably achievable. COMPARISON: June 08, 2023 HISTORY: ORDERING SYSTEM PROVIDED HISTORY: Reason for Exam: right abdominal pain FINDINGS: Minor degenerative changes are noted in the spine. No other osseous abnormality is evident. Cholecystectomy clips are present. Liver, spleen, adrenal glands and pancreas are unremarkable. Punctate 2 mm stone is evident at the left mid pole kidney. Additionally, there is a nonobstructing stone at the proximal portion of the left ureter. No other renal finding.. A borderline gastro hepatic ligament lymph node is evident, fairly similar to the previous exam. No adenopathy is evident. No free air or free fluid seen. Solid pelvic organs and urinary bladder are grossly normal. An IUD is noted in place. No GI tract abnormality is visible. No additional contributory abnormality seen. IMPRESSION: 1. Punctate left nephrolithiasis. 2. Nonobstructing 3 mm stone at the proximal left ureter. 3. No other acute abnormality identified. Interpreted by: Josef Nicholson MD Preliminary Report By: Josef Nicholson MD Electronically signed By Josef Nicholson MD Dictated Date: 02/25/2024 11:56:07 AM Prelim Date: 02/25/2024 12:00:15 PM Sign Date: 02/25/2024 12:00:15 PM Ordering Provider: [facility] Note. MICRO - Microbiology PROCEDURE: Urine Culture [*1] SOURCE: Urine, Clean Catch BODY SITE: COLLECTED DATE/TIME: 01/14/2024 08:13 EDT RECEIVED DATE/TIME: 01/14/2024 14:51 EDT START DATE/TIME: 01/14/2024 14:51 EDT FREE TEXT SOURCE: FINAL REPORTS Final Report [] Verified Date/Time/Personnel: 01/16/2024 07:22 EDT >100,000 cfu/ml Multiple bacterial morphotypes present. Probable Contamination. Suggest recollection if clinically indicated. PRELIMINARY REPORTS Preliminary Report [] Verified Date/Time/Personnel: 01/15/2024 08:27 EDT Culture results pending. Performing Locations *1: This test was performed at: [facility], [address] [place] [address], [id number]- , Counts include 234 beds at the [facility] [place]08-19-2023 Evaluation + Plan note Future Scheduled Tests Radiology* US Abdomen Complete 08/19/23 [facility] 12-12-2023 History of Present illness Narrative* Melissa Cabrales, OD - 07/02/2023 10:30 AM EST 1. Dry eye syndrome of bilateral lacrimal glands Patient had good success with dissolvable plugs Instilled permanent Ponce plugs (0.4mm RLL, 0.5mm LLL) 2. Punctate keratitis of right eye Continue gel nightly and artificial tears 2-3x daily 3. Type 2 diabetes mellitus without retinopathy (HCC) Monitor 4. Regular astigmatism of both eyes 5. Presbyopia Reprinted spec rx Follow-up in 8 months for Diabetic eye exam and dry eye follow-up Melissa Cabrales, OD July 02, 2023 10:30 AM documented in [facility] encounterC[facility] Miscellaneous Notes* Telephone Encounter - Alison Rogel RN - 05/28/2023 2:30 PM EST Triage Protocol Advised: See provider within 24 hours for evaluation. This nurse recommended pt be evaluated today. Pt agreeable to EC today. Reason for Disposition Blood in urine (red, pink, or tea-colored) Answer Assessment - Initial Assessment Questions Pt contacted for triage of sx's: lower abdominal pain and pressure, pink tinged urine or blood inurine. Also has abd pressure and occasional burning with urination. Began 1-2 days ago. History of UTIs, most recently about a month ago, was treated with 2 antibiotics and improved. Pt states she does not think this is vaginal bleeding. Pt reports she has a Merena. Saw BIOTECHNICIAN within last week. Se contacted BIOTECHNICIAN and they advised contacting PCP of sx's. Pt diabetic. Reports had BM in last 24 hours. Hard to expel BM at times. 1. LOCATION: lower abdomen 2. RADIATION: states has has back pain for a couple of months 3. ONSET: abd pain began within last 24 hours 4. SUDDEN: gradual 5. PATTERN : constant 6. SEVERITY: 5 out of 10 7. RECURRENT SYMPTOM: yes, has had this before 8. CAUSE: Pt unsure if related to a UTI or colon issues 9. RELIEVING/AGGRAVATING FACTORS: sitting 10. OTHER SYMPTOMS: -has back pain, has had for couple months -denies flank pain -no N/V/D -denies fever or chills -has fatigue 11. : Has Svetlana, saw tobacco wetter last week Protocols used: Abdominal Pain - [id number] documented in this encounterC[facility]10-27-2023 Instructions* Patient Instructions* Merna Krueger APRN.DRILL HAND - 05/17/2023 11:34 AM EDT PATIENT PREOPERATIVE INSTRUCTIONS Rosamaria Caruso MD has scheduled you for your procedure at this surgery center: [facility]: [phone] -- [address] [facility] [address]. Please read below carefully for your personalized instructions. Dietary Restrictions: - Follow bowel prep instructions: clear liquids need to be stopped 2 hours prior to schedule arrival at facility Medications: Unless instructed differently below, stay on all of your medications until your surgery. If you start any new medications after today's visit, please contact your surgeon. Pre-Surgery Med Instructions Medication Instructions furosemide (LASIX) 20 mg tablet Do not take the day of surgery nystatin (MYCOSTATIN) 100,000 unit/mL suspension IF needed DEXCOM G7 HOTEL RECEPTIONIST misc DEXCOM G7 SENSOR nelly phenazopyridine (PYRIDIUM) 200 mg tablet IF needed pantoprazole DR (PROTONIX) 40 mg tablet Take the day of surgery with a small sip of water NOVOLOG FLEXPEN U-100 INSULIN 100 unit/mL (3 mL) Do not take the day of surgery meloxicam (MOBIC) 15 mg tablet Stop 7 days before surgery insulin needles, DISPOSABLE, (PEN NEEDLE) 31 gauge x 5/16 lisinopril 2.5 mg tablet Do not take the day of surgery atorvastatin (LIPITOR) 20 mg tablet Take the day of surgery with a small sip of water hydroCHLOROthiazide 25 mg tablet Do not take the day of surgery ferrous sulfate 325 mg (65 mg iron) tablet Take the day of surgery with a small sip of water semaglutide (OZEMPIC) 0.25 mg or 0.5 mg(2 mg/1.5 mL) pen Stop 7 days before surgery albuterol HFA (VENTOLIN HFA) 90 mcg/actuation inhaler Take the day of surgery with a small sip of water fluticasone (FLONASE) 50 mcg/actuation nasal spray Take the day of surgery with a small sip of water FLUoxetine (PROZAC) 40 mg capsule Take the day of surgery with a small sip of water blood sugar diagnostic test strip levothyroxine (SYNTHROID) 200 mcg tablet Take the day of surgery with a small sip of water acetaminophen (TYLENOL) 325 mg tablet IF needed insulin degludec (TRESIBA FLEXTOUCH U-200) 200 unit/mL (3 mL) injection Insulin: Do not take the morning of surgery. Take 50% of your usual dose the night before surgery. metFORMIN ER (GLUCOPHAGE XR) 500 mg 24 hr tablet Do not take the day of surgery Ciclopirox (LOPROX) 8 % solution cholecalciferol, Vitamin D3, (VITAMIN D3) 1,250 mcg (50,000 unit) cap capsule Stop 7 days before surgery levonorgestrel (MIRENA) 20 mcg/24 hours (5 yrs) 52 mg IUD Blood-Glucose Meter misc Lancets lancets lidocaine (XYLOCAINE) 5 % ointment ALCOHOL PREP PADS padm CPAP TENS unit and electrodes cmpk If you start any new medications after today's visit, please contact the surgeon's office. Blood Thinning Medications: - Stop NSAIDS (Ibuprofen, Advil, Aleve, Motrin, Celebrex, Mobic, etc.) 7 days before surgery, as directed by your surgeon. - Stop Aspirin 7 days before surgery, as directed by your surgeon. - Stop Vitamin E, ALL multi-vitamins, herbals and dietary supplements 7 days before surgery. - You may take Tylenol (Acetaminophen) or any of your pain medications that do not contain aspirin or NSAIDS as needed. Important Reminders: - Candy, mints, and tobacco products are NOT permitted the morning of surgery. - Hearing aids, dentures and glasses may be worn the morning of surgery. - NO jewelry, body piercings, makeup, hairpins or contacts are to be worn the day of surgery. If you develop symptoms such as a fever, cold, or flu, or have other changes to your health within TWO DAYS of scheduled surgery or the morning of surgery, please contact the surgery center above. Personal Belongings: -Please have photo ID and insurance cards. -If you do not have a copy of advance directives on file with us, please bring a copy with you on the day of surgery. - Leave ALL valuables and money at home or with family members. For Outpatient Procedures: - YOU MUST HAVE A RESPONSIBLE QUARRY PLANT CRUSHER OPERATOR TAKE YOU HOME. A PRECISION AGRICULTURE TECHNICIAN OR FARM CONSULTANT CANNOT BE MADE A RESPONSIBLE QUARRY PLANT CRUSHER OPERATOR. - We recommend that a responsible person stays with you overnight to take care of you. - You cannot stay in a hotel alone after outpatient surgery. You will not be permitted to have yoursurgery, if you do not have someone to take care of you. Arrival Time for Surgery: - The Surgery Center or hospital where you are having surgery will call the afternoon before surgery (or Saturday for Saturday surgery) with a scheduled arrival time. - If you have not heard by 4 pm, please contact the surgery center above. Please be aware that emergency situations arise, which may delay or change your surgical time. If this happens, we will notify you as soon as possible and regret any inconvenience. If you already have an Advance Directive, please fax a copy to [phone] or email to for it to be added to your chart. If you do not have an Advance Directive, you can find the appropriate form and more information at [email or web address]. We recommend that youcomplete the Advance Directive form found on the website and bring it with you the day of your surgery. It can be witnessed and scanned into your chart that day. Merna Krueger APRN.CNP documented in this encounterC[facility]10-27-2023 History and physical note * Merna Krueger APRN.CNP - 05/17/2023 11:33 AM EDT Images from the original note were not included. HISTORY AND PHYSICAL EXAMINATION SERVICE DATE: 05/17/2023 SERVICE TIME: 12:51 PM PRIMARY CARE PHYSICIAN: Papa Douglass MD Assessment Patient has the following medical conditions which may affect eze-operative course: Anemia Assessment: on rx Hemoglobin (g/dL) Date Value 11/06/2022 12.7 06/08/2021 12.0 Hematocrit (%) Date Value 11/06/2022 41.3 06/08/2021 38.6 WBC (k/uL) Date Value 11/06/2022 9.07 06/08/2021 8.18 Morbid obesity with BMI of 50.0-59.9, adult ([facility]) Assessment: Body mass index is 50.07 kg/m . Type 2 diabetes mellitus without complication, with long-term current use of insulin ([facility]) Assessment: IDDM and oral agent, has NOT been taking the Ozempic due to insurance coverage per pt, following OSH endo Hemoglobin A1C (%) Date Value 02/18/2023 10.8 04/17/2023 Jaziel Drake, DRILL HAND, [facility] Colitis Assessment: hx, recent hospitalization 04/18/2023-04/20/2023 Below copied from [facility]: Chief Complaint: Abd Pain Informant: patient Narrative Narrative: Patient is a 57-year-old female with history of CKD, neuropathy, type 2 diabetes mellitus, hypothyroidism and chronic leg edema presenting for right upper quadrant abdominal pain. Patient states she woke up with this pain around 2 AM. She describes it as constant and achy in nature. She denies any radiation. He feels bloated but denies any nausea or vomiting with it. Does have history of prior cholecystectomy. Does note that she has a chronic cough has been worsening over the past few days and does feel mildly short of breath. She is continued but intermittent leg swelling which is unchanged.Denies any fever, chills or URI symptoms. Denies any alcohol use. Notes her symptoms are worse withmovement. Denies any falls or trauma. Denies any change in bowel habits denies any black or blood in her stool. Denies any urinary symptoms but notes she gets chronic UTIs as well as yeast infections. Plan 1. Transient intermittent hypoxia is likely multifactorial secondary to her morbid obesity as well as her sleep apnea and diastolic CHF/HLD - Echo with normal EF and stage I diastolic dysfunction no signs of right heart strain - Continue with Lasix - She is not requiring any oxygen currently at rest, will obtain an ambulatory pulse ox - Continue with the fluid restriction - BNP is 6.4 2. Infectious colitis with UTI - Continue on Cipro and Flagyl from the ER she is tolerating a diet without any significant discomfort or abdominal pain - Urine cultures pending but should be covered with Cipro 3. DM2 with neuro apathy - Uncontrolled diabetes, will hold her home oral agents - Continue with insulin - Accu-Cheks ACHS - We will monitor and make adjustment as necessary 4. Hypothyroidism - Stable - Continue with Synthroid - Recently checked TSH was 3.79 5. Depression/anxiety - Stable - Continue with home medications [facility] Course: Per HPI: LEROY TYLER, is a 57 F who presented to the emergency department at [facility] due to abdominal pain that was diffuse but predominantly in the right upper quadrant. She reported she woke up with the pain around 2 AM and reported it was constant and achy in nature. Had no r adiation and she reported that she feels bloated but has not had any vomiting. Mild nausea has beenpresent intermittently. She has a history of cholecystectomy and also reports a chronic cough. She states that off may been worse over the last couple of days. She reports lower extremity edema that is chronic. She states is not really much different she seen her legs worse at times. Stools have been normal for her. She is not no hematemesis or hematochezia, no melena. She does have KODI and is noncompliant with her CPAP. When asked her if someone could bring it in from home she states it is packed away somewhere so she has not been compliant at all. She indicates she has chronic UTIs but doesnot follow with anybody for this. She denies any current dysuria or urinary frequency. She is not on chronic suppressive therapy. Vital signs on presentation demonstrated temperature of 97.6, heart rate 105, blood pressure 150/80, respiratory rate 14 oxygen saturations were 96% on room air. Her chemistry shows a sodium of 131 however her blood glucose level is 430 and when corrected her actual sodium is 139. Her serum bicarb is 29 her anion gap is normal despite her severely elevated glucose. BUN and creatinine are normal. Liver functions are fairly unremarkable. Lipase is 26. Her UA is consistent with infection the patient does report she has issues with chronic UTIs however she is asymptomatic at this point. EKG showsa right bundle branch block with poor R wave progression but no ST-T wave changes concerning for acute ischemia and intervals are normal. Given her abdominal pain a CT of abdomen pelvis was performedand shows hepatomegaly with minimal increased markings at the right hepatorenal space and proximal focal thickening at the hepatic flexure consistent with colitis. Chest x-ray shows vascular congestion and possible CHF. Basic natruretic peptide has been ordered however the machine is down and currently we are unable to obtain a value. I requested an ABG and a D-dimer be performed and they are both pending at this time. Dr. Hidalgo, from general surgery was contacted with regards to her colitis and he recommended a course of Cipro Flagyl per discussion with emergency department physician. The plan was initially to discharge her home however they got her up to ambulate her and oxygen saturations dropped into the mid 80s. They have fluctuated since then at times she will be sitting and be in the 90s and then drop into the 80s. I am obtaining an ABG to rule out obesity hypoventilation syndrome and we will calculatea gradient to do so. As noted a D-dimer is pending and if this is elevated I will get a CTA of her chest and Dopplers of her legs with edema. Hospital Course: 1. Transient intermittent hypoxia which is likely multifactorial secondary to her morbid obesity aswell as sleep apnea and diastolic CHF/[id number]-fhw[age]-old female presented to the hospital with abdominal pain that was felt to be colitis but then she was given be discharged home but was noticed to have intermittent hypoxic episodes down to like 87% on room air. She was started on Lasix which seems to have helped as she has not been needing significant amount of oxygen. She has had 2 ambulatory pulse ox is obtained during this hospitalization neither of which demonstrated the need for oxygen. I discussed with her the need to continue with Lasix on discharge as well as wear her CPAP at home and we also discussed lifestyle modifications for weight loss. I discussed with her the plan for discharge today she expressed understanding of the risk benefits of going home and would like to go home today. I do recommend that she follow-up with her PCP in 3 to 5 days for outpatient monitoring. 2. Infectious colitis with an E. coli UTI-colitis was interpreted on the CT scan and was discussed with general surgery by the ED physician. She was placed on a diet which she tolerated just fine andwas started on Cipro and Flagyl. She is tolerated these antibiotics well and on the day of discharge was elected to transition her to cefdinir secondary to her SHAHEEN for the ciprofloxacin being 1 and having an intermediate resistance to Levaquin. She was continued on Flagyl and will take both of her antibiotics for another 7 days. 3. Type 2 diabetes with neuropathy, hypothyroidism, depression, anxiety are chronic medical conditions which complicate her care. Her home medications were continued where appropriate Essential hypertension Assessment: controlled on rx Last 14 BP Last 14 Encounter BP Readings: Date: BP: 05/17/2023 94/62 05/07/2023 124/78 05/03/2023 126/74 04/16/2023 120/75 03/05/2023 106/73 01/19/2023 118/76 11/06/2022 118/68 10/01/2022 118/64 09/27/2022 120/72 09/21/2022 118/72 08/30/2022 110/58 08/07/2022 120/68 07/18/2022 136/60 06/28/2022 112/66 Mixed hyperlipidemia Assessment: c/w statin Hypothyroidism Assessment: stable on rx Chronic diastolic congestive heart failure (HCC) Assessment: stage I diastolic dysfunction, normal EF per f/u documentation with PCP's office 05/03/2023. Echo not scanned into epic. Will request. Bilateral leg edema Assessment: BLE 1+ edema, daily Lasix Baer Activity Status Index: METS: Climb a flight of stairs or walk up a hill (5.50 METs) DASI Score: 5.5 Patient denies any chest pain or undue shortness of breath with the above physical activity. Clinical Frailty Scale: 4. Apparently vulnerable STOP-Bang Score: Snores loudly Often feels tired, fatigued, or sleepy during the daytime Has been observed to stop breathing or choking/gasping during sleep Has or is being treated for high blood pressure BMI greater than 35 kg/m^2 Patient over 50 years old Has a large neck Non-male patient STOP-Bang Score: 7 [id number] Score: Age: <65 Sex: female CHF history: Yes Hypertension history: Yes Stroke/TIA/thromboembolism history: No Vascular disease history: No Diabetes history: Yes [id number] Score: 4 ARISCAT Score: Age: 51-80 Preoperative SpO2: >=96% Respiratory infection in the last month: No Preoperative anemia: Yes Surgical incision: peripheral Duration of surgery: <2 hrs Emergency procedure: No ARISCAT Score: 14 ANESTHESIA FINDINGS: Intubation History: No history of difficult intubation Significant Anesthesia Considerations: none Airway History: No history of difficult airway I - PHYSICAL EVALUATION AIRWAY Patient intubated: No. Tracheostomy tube not present Mallampati: III. TM distance: >3 FB. Neck ROM: full ROM without neurological symptoms. Mouth opening: adequate. Short neck: yes. Thick neck: yes Moss present: no Lip Bite Test: II Microretrognathia/Micronagthia/Recessed Chin: No DENTAL Dental findings: teeth intact. II - ANESTHESIA PLAN Anesthetic Plan: other Anesthetic plan additional comments: *PACC/TCI - anesthesia choice. Beta Rivka Monitoring Plan Post Procedure Analgesic Plan Informed Consent Anesthetic risks, benefits, alternatives, personnel and consent discussed: yes. Patient / Responsible Green Party agrees to proceed: yes Patient / Surrogate agrees to blood products: blood products not planned Discussed the possibility of lip / dental damage: yes REASON FOR VISIT: Leroy Tyler is a 57 year old female who is scheduled for * No surgery found *at the request of Dr. Rosamaria Caruso for consultation. My final recommendation will be communicated back to the requesting physician by way of shared medical record or letter. Subjective The patient has the following: ACTIVE PROBLEM LIST Type 2 Diabetes Mellitus Without Complication, With Long-Term Current Use of Insulin (Hcc) Hypothyroidism History of Anemia Premenopausal Menorrhagia Cellulitis Mixed Hyperlipidemia Vitamin D Deficiency Anemia Vomiting Blood Colitis Morbid Obesity With Bmi of 50.0-59.9, Adult ([facility]) Occult Blood Positive Stool Irritability Essential Hypertension Chronic Diastolic Congestive Heart Failure (Hcc) Bilateral Leg Edema COVID-19 Immunization Status Overdue - Covid-19 Vaccine ( season) Overdue since 03/22/2023 02/21/2022 Imm Admin: COVID-19 original vaccine, age 12+ yr, monovalent (PFIZER- BIONTECH - PURPLE TOP) 02/19/2021 Outside Immunization: Covid (Pfizer) 08/10/2020 Imm Admin: COVID-19 original vaccine, age 12+ yr, monovalent (PFIZER- BIONTECH - PURPLE TOP) Only the first 3 history entries have been loaded, but more history exists. CHIEF COMPLAINT: Pre-op exam HPI: Leroy Tyler is a 57 year old seen for PAC due to scheduled above surgery because h/o colitis. 05/07/2023, Yessy White PA-C HPI: The patient is a 57 year old female referred for endoscopy. Lreoy notes a recent hospitalization for colitis. Patient denies any change in bowel habits, weight changes, blood in stools, black tarry stools or abdominal pain. Denies family history of colon issues. The patient abdominal pain which moves in location from upper to lower abdomen and side, and variesin intensity. Notes stomach acid. Leroy has undergone prior endoscopy. Notes past history of colon polyps. Patient's medical history is significant for kidney disease, hypoxia, sleep apnea, shortness of breath, type II diabetes mellitus, obesity. REVIEW OF SYSTEMS: General: No weight loss, malaise or fevers. Neurological: Positive for: headaches (otc analgesics as needed) and peripheral neuropathy. Negative for: cerebral palsy, ACCOUNT INSTALLER tumor, dementia, impaired sensorium, multiple sclerosis, Parkinson's disease, seizures, TIA and strokes. Respiratory: Positive for: obstructive sleep apnea and CPAP/BiPAP compliant. Negative for: asthma, COPD, pneumonia within 6 weeks, tobacco use and URI < 2 weeks. Cardiovascular: Positive for: CHF (on rx), hyperlipidemia and hypertension Negative for: anticoagulation therapy, arrhythmia, atrial fibrillation, CAD, chest pain, congenitalheart defect, DVT/PE, recent AL, murmur/valvular heart disease, PVD, open heart surgery and valve surgery. GI: Positive for: GERD and inflammatory bowel disease (hx colitis) Negative for: abdominal pain, dysphagia, hepatitis, irritable bowel syndrome, liver disease, nausea, pancreatitis, vomiting and ETOH >2 drinks/day. : Positive for: nephrolithiasis (remote hx), renal failure and urinary tract infection (recurrent). Patient's renal failure is chronic. Negative for: urinary incontinence. 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 Endocrine: Positive for: diabetes mellitus and hypothyroidism (on rx). Patient's diabetes mellitus is controlled by insulin, oral agents and PT states she has been holding weekly injectable. Hematology: Positive for: anemia and iron deficiency anemia (on rx). Negative for: bruises/bleeds easily, factor V Leiden, transfusion of at least 4 units within 72 hours prior to surgery and chronic anti-coagulation/platelet meds. Oncology: No history of CA metastasis, chemo within 30 days, or radiotherapy within 90 days. No history of oncological symptoms or problems. Psych: Positive for: anxiety (on rx) and depression (on rx). Musculoskeletal: Positive for: back pain and swelling (on rx). Skin: +dry skin. Negative for lesions, rash and itching. PAST MEDICAL HISTORY Diagnosis Date Anemia Chronic kidney disease, stage III (moderate) (HCC) Hypercholesteremia Mental disorder anxiety/depression Obesity Snoring Type II or unspecified type diabetes mellitus without mention of complication, not stated as uncontrolled Unspecified hypothyroidism Vomiting blood PAST SURGICAL HISTORY Procedure Laterality Date COLONOSCOPY FLX DX W/COLLJ SPEC WHEN PFRMD 04/01/2013 Colonoscopy COLONOSCOPY FLX DX W/COLLJ SPEC WHEN PFRMD 02/24/2018 Colonoscopy - 5 yr interval DILATION & CURETTAGE DX&/THER NONOBSTETRIC 10/2012 Dilation & curettage ESOPHAGOGASTRODUODENOSCOPY TRANSORAL DIAGNOSTIC 10/30/2013 EGD ESOPHAGOGASTRODUODENOSCOPY TRANSORAL DIAGNOSTIC 02/24/2018 EGD HYSTEROSCOPY BX W/WO D&C 12/30/2012 hysteroscopy D&C w mirena insertion INSERTION OF IUD 12/30/2012 LAPAROSCOPY SURG CHOLECYSTECTOMY 1990s Cholecystectomy, lap FAMILY HISTORY Problem Relation Age of Onset Breast Cancer Mother 63 Diabetes Mother Glaucoma Mother Cancer Father Heart disease Maternal Grandfather Stroke Paternal Grandmother Social History Tobacco Use Smoking status: Former Packs/day: 0.50 Years: 10.00 Additional pack years: 0.00 Total pack years: 5.00 Types: Cigarettes Quit date: 05/29/2010 Years since quittin.9 Smokeless tobacco: Never Tobacco comments: one pack per week for 2 years Vaping Use Vaping Use: Never used Substance Use Topics Alcohol use: Yes Comment: occasionally Drug use: No Comment: marijuana in the past Prior to Admission medications as of 05/17/23 1133 Medication Sig Last Dose Taking furosemide (LASIX) 20 mg tablet Take 1 tablet by mouth once daily. Taking Yes nystatin (MYCOSTATIN) 100,000 unit/mL suspension Take 5 mL by mouth four times daily. 1tsp swish inmouth for several minutes, then swallow (or expectorate) 4 times daily until gone. Taking Yes DEXCOM G7 HOTEL RECEPTIONIST misc Taking Yes DEXCOM G7 SENSOR nelly APPLY 1 SENSOR EVERY 10 DAYS Taking Yes phenazopyridine (PYRIDIUM) 200 mg tablet Take 1 tablet by mouth three times daily as needed for up to 9 doses. Taking Yes pantoprazole DR (PROTONIX) 40 mg tablet Take 1 tablet by mouth daily before breakfast. Take on empty stomach, 1/2 hr before meal. Taking Yes NOVOLOG FLEXPEN U-100 INSULIN 100 unit/mL (3 mL) Use 45-50 units with full meal. Use 10 units with a snack. If exercising after meal, use 38-40 units with that meal. Taking Yes meloxicam (MOBIC) 15 mg tablet Take 1 tablet by mouth once daily. Take with food. Taking Yes insulin needles, DISPOSABLE, (PEN NEEDLE) 31 gauge x 5/16 Use one needle 3-4 times daily with insulin. E11.65 Insulin: Yes Taking Yes lisinopril 2.5 mg tablet Take 1 tablet by mouth once daily. Taking Yes atorvastatin (LIPITOR) 20 mg tablet Take 1 tablet by mouth once daily. Taking Yes hydroCHLOROthiazide 25 mg tablet Take 1 tablet by mouth once daily. Taking Yes ferrous sulfate 325 mg (65 mg iron) tablet TAKE 1 TABLET BY MOUTH EVERY DAY Taking Yes semaglutide (OZEMPIC) 0.25 mg or 0.5 mg(2 mg/1.5 mL) pen Inject 0.25 mg subcutaneously one time a week. Taking Yes albuterol HFA (VENTOLIN HFA) 90 mcg/actuation inhaler Inhale 2 Puffs as instructed every 4 hours asneeded for wheezing/shortness of breath for up to 10 days. Taking Yes fluticasone (FLONASE) 50 mcg/actuation nasal spray Use 1-2 Sprays in each nostril once daily. Taking Yes FLUoxetine (PROZAC) 40 mg capsule Take 1 capsule by mouth once daily. Taking Yes blood sugar diagnostic test strip Use to check blood sugar three times daily. Dx: Type 2 DM - Uncontrolled E11.9 MULTIPLE INSULIN INJECTIONS Taking Yes levothyroxine (SYNTHROID) 200 mcg tablet Take once daily in addition to 150 mcg for thyroid Taking Yes acetaminophen (TYLENOL) 325 mg tablet Take 250 mg by mouth as needed. Taking Yes insulin degludec (TRESIBA FLEXTOUCH U-200) 200 unit/mL (3 mL) injection Inject 110 Units subcutaneously every morning. Taking Yes metFORMIN ER (GLUCOPHAGE XR) 500 mg 24 hr tablet Take 2 tablets by mouth twice daily. Taking Yes Ciclopirox (LOPROX) 8 % solution APPLY TO AFFECTED AREA DAILY AT BEDTIME. TO AFFECTED AREA. Taking Yes cholecalciferol, Vitamin D3, (VITAMIN D3) 1,250 mcg (50,000 unit) cap capsule Take 1 capsule by mouth one time a week. Taking Yes levonorgestrel (MIRENA) 20 mcg/24 hours (5 yrs) 52 mg IUD 1 Each by INTRAUTERINE route one time only. Taking Yes Blood-Glucose Meter misc Use to check blood sugar three times daily. Dx: Type 2 DM - Uncontrolled E11.65 Taking Yes Lancets lancets Use to check blood sugar three times daily. Dx: Type 2 DM - Uncontrolled E11.65 Taking Yes lidocaine (XYLOCAINE) 5 % ointment Apply 1 application to affected area as needed. Taking Yes ALCOHOL PREP PADS padm TEST BLOOD SUGARS 3 TIMES DAILY Taking Yes CPAP as directed. Taking Yes TENS unit and electrodes cmpk Taking Yes Medication Comments documented by Jaziel Luis on 09/10/2014 at 1127. ALLERGIES Allergen Reactions Codeine Swelling Nitrofurantoin Swelling Sulfa (Sulfonamide * Rash, Unknown Sulfamethoxazole-Tr* Rash Blisters all over Trimethoprim Unknown Objective PHYSICAL EXAM: General: alert and oriented (x3), healthy appearance and morbidly obese. Pertinent negatives noted - not distressed. Skin: normal color, no rash or lesions. HEENT: EOM intact and pupils equal round. Pertinent negatives noted - no carotid bruit. Cardiovascular: regular rate and rhythm, normal S1 and S2, no rub, murmurs, or gallop. Respiratory: normal breath sounds, no wheezes or crackles. No chest wall deformity or tenderness. Abdomen: soft. Pertinent negatives noted - not tender. Extremities: Positive for edema (BLE 1+). Neurological: normal cognition and motor skills. Gait normal. No weakness or sensory deficit. PAIN ASSESSMENT: VITALS: BP 94/62 Pulse 94 Temp (Src) 97.5 (Temporal) Ht 5' 1 (1.55m) Wt 265 lb (120.2kg) SpO2 98% LMP 09/27/2013 BMI 50.10 kg/(m^2). Diagnostic tests reviewed for today's visit: Lab Value Units Date High Low HB No results within date range. HCT No results within date range. WBC No results within date range. PLT No results within date range. NA 135 mmol/L 02/15/2023 144 136 K 4.7 mmol/L 02/15/2023 5.1 3.7 GLUC 250 mg/dL 02/15/2023 99 74 BUN 20 mg/dL 02/15/2023 21 7 CREAT 0.66 mg/dL 02/15/2023 0.96 0.58 PTSEC No results within date range. INR No results within date range. APTT No results within date range. ALT 33 U/L 02/15/2023 38 7 AST 42 U/L 02/15/2023 35 13 TBILI 0.5 mg/dL 02/15/2023 1.3 0.2 TSH No results within date range. Lab Value Units Date High Low HCGQT No results within date range. UHCG No results within date range. HCG, BODY* No results within date range. Lab Value Units Date High Low ABORHD No results within date range. ABSCREEN No results within date range. Hemoglobin A1C (%) Date Value 02/18/2023 10.8 02/15/2023 10.7 09/24/2022 8.0 06/15/2022 9.4 03/12/2022 10.8 11/09/2021 10.7 06/08/2021 6.5 04/05/2021 7.0 01/10/2021 13.8 10/10/2020 12.5 No results found for this or any previous visit (from the past 8760 hour(s)). No results found for this or any previous visit (from the past 57851 hour(s)). Prepared for Surgery: optimally prepared for surgery. CONSULTS: Patient does not require consults for optimization at this time Planned Anesthetic: other anesthesia choice The Following Tests/Procedures Have Been Initiated: No orders of the defined types were placed in this encounter. Instructions Given to Patient: Instructions located in the after visit summary. Patient given verbal and written preop instructions and voices comprehension and compliance. SIGNATURE: Merna Krueger APRN.CNP PATIENT NAME: Leroy Tyler DATE: May 17, 2023 TIME: 11:33 AM PAGER/CONTACT #: documented in this encounterC[facility] History of Present illness Narrative* Yessy White PA-C - 05/07/2023 1:13 PM EDT HISTORY AND PHYSICAL Leroy Tyler 1965 REFERRING PHYSICIAN: Papa Douglass MD CHIEF COMPLAINT: Consult (Colitis, colonoscopy screening) HPI: The patient is a 57 year old female referred for endoscopy. Leroy notes a recent hospitalization for colitis. Patient denies any change in bowel habits, weight changes, blood in stools, black tarry stools or abdominal pain. Denies family history of colon issues. The patient abdominal pain which moves in location from upper to lower abdomen and side, and variesin intensity. Notes stomach acid. Leroy has undergone prior endoscopy. Notes past history of colon polyps. Patient's medical history is significant for kidney disease, hypoxia, sleep apnea, shortness of breath, type II diabetes mellitus, obesity. PAST MEDICAL HISTORY Diagnosis Date Anemia Chronic kidney disease, stage III (moderate) (HCC) Hypercholesteremia Mental disorder anxiety/depression Obesity Snoring Type II or unspecified type diabetes mellitus without mention of complication, not stated as uncontrolled Unspecified hypothyroidism Vomiting blood PAST SURGICAL HISTORY Procedure Laterality Date COLONOSCOPY FLX DX W/COLLJ SPEC WHEN PFRMD 04/01/2013 Colonoscopy COLONOSCOPY FLX DX W/COLLJ SPEC WHEN PFRMD 02/24/2018 Colonoscopy - 5 yr interval DILATION & CURETTAGE DX&/THER NONOBSTETRIC 10/2012 Dilation & curettage ESOPHAGOGASTRODUODENOSCOPY TRANSORAL DIAGNOSTIC 10/30/2013 EGD ESOPHAGOGASTRODUODENOSCOPY TRANSORAL DIAGNOSTIC 02/24/2018 EGD HYSTEROSCOPY BX W/WO D&C 12/30/2012 hysteroscopy D&C w mirena insertion INSERTION OF IUD 12/30/2012 LAPAROSCOPY SURG CHOLECYSTECTOMY 1990s Cholecystectomy, lap Current Outpatient Medications Medication Sig furosemide (LASIX) 20 mg tablet Take 1 tablet by mouth once daily. nystatin (MYCOSTATIN) 100,000 unit/mL suspension Take 5 mL by mouth four times daily. 1tsp swish inmouth for several minutes, then swallow (or expectorate) 4 times daily until gone. DEXCOM G7 HOTEL RECEPTIONIST misc DEXCOM G7 SENSOR nelly APPLY 1 SENSOR EVERY 10 DAYS phenazopyridine (PYRIDIUM) 200 mg tablet Take 1 tablet by mouth three times daily as needed for up to [address] (PROTONIX) 40 mg tablet Take 1 tablet by mouth daily before breakfast. Take on empty stomach, 1/2 hr before meal. NOVOLOG FLEXPEN U-100 INSULIN 100 unit/mL (3 mL) Use 45-50 units with full meal. Use 10 units with a snack. If exercising after meal, use 38-40 units with that meal. meloxicam (MOBIC) 15 mg tablet Take 1 tablet by mouth once daily. Take with food. insulin needles, DISPOSABLE, (PEN NEEDLE) 31 gauge x 5/16 Use one needle 3-4 times daily with insulin. E11.65 Insulin: Yes lisinopril 2.5 mg tablet Take 1 tablet by mouth once daily. atorvastatin (LIPITOR) 20 mg tablet Take 1 tablet by mouth once daily. hydroCHLOROthiazide 25 mg tablet Take 1 tablet by mouth once daily. ferrous sulfate 325 mg (65 mg iron) tablet TAKE 1 TABLET BY MOUTH EVERY DAY semaglutide (OZEMPIC) 0.25 mg or 0.5 mg(2 mg/1.5 mL) pen Inject 0.25 mg subcutaneously one time a week. fluticasone (FLONASE) 50 mcg/actuation nasal spray Use 1-2 Sprays in each nostril once daily. FLUoxetine (PROZAC) 40 mg capsule Take 1 capsule by mouth once daily. blood sugar diagnostic test strip Use to check blood sugar three times daily. Dx: Type 2 DM - Uncontrolled E11.9 MULTIPLE INSULIN INJECTIONS levothyroxine (SYNTHROID) 200 mcg tablet Take once daily in addition to 150 mcg for thyroid acetaminophen (TYLENOL) 325 mg tablet Take 250 mg by mouth as needed. insulin degludec (TRESIBA FLEXTOUCH U-200) 200 unit/mL (3 mL) injection Inject 110 Units subcutaneously every morning. metFORMIN ER (GLUCOPHAGE XR) 500 mg 24 hr tablet Take 2 tablets by mouth twice daily. Ciclopirox (LOPROX) 8 % solution APPLY TO AFFECTED AREA DAILY AT BEDTIME. TO AFFECTED AREA. cholecalciferol, Vitamin D3, (VITAMIN D3) 1,250 mcg (50,000 unit) cap capsule Take 1 capsule by mouth one time a week. levonorgestrel (MIRENA) 20 mcg/24 hours (5 yrs) 52 mg IUD 1 Each by INTRAUTERINE route one time only. Blood-Glucose Meter misc Use to check blood sugar three times daily. Dx: Type 2 DM - Uncontrolled E11.65 Lancets lancets Use to check blood sugar three times daily. Dx: Type 2 DM - Uncontrolled E11.65 lidocaine (XYLOCAINE) 5 % ointment Apply 1 application to affected area as needed. ALCOHOL PREP PADS padm TEST BLOOD SUGARS 3 TIMES DAILY CPAP as directed. TENS unit and electrodes cmpk albuterol HFA (VENTOLIN HFA) 90 mcg/actuation inhaler Inhale 2 Puffs as instructed every 4 hours asneeded for wheezing/shortness of breath for up to 10 days. No current facility-administered medications for this visit. ALLERGIES: Codeine, Nitrofurantoin, Sulfa (Sulfonamide Antibiotics), Sulfamethoxazole-Trimethoprim,and Trimethoprim PERSONAL HISTORY: Social History Tobacco Use Smoking status: Former Packs/day: 0.50 Years: 10.00 Additional pack years: 0.00 Total pack years: 5.00 Types: Cigarettes Quit date: 05/29/2010 Years since quittin.9 Smokeless tobacco: Never Tobacco comments: one pack per week for 2 years Vaping Use Vaping Use: Never used Substance Use Topics Alcohol use: Yes Comment: occasionally Drug use: No Comment: marijuana in the past FAMILY HISTORY: FAMILY HISTORY Problem Relation Age of Onset Breast Cancer Mother 63 Diabetes Mother Glaucoma Mother Cancer Father Heart disease Maternal Grandfather Stroke Paternal Grandmother REVIEW OF SYMPTOMS: The review of systems data was entered by the nurse and reviewed by il Nursing Notes: Saundra Qiu LPN 05/07/2023 1:15 PM Signed REVIEW OF SYSTEMS: General: The patient NOTES fatigue, denies weight loss, denies weight gain, denies feeling hot, anddenies feelings of cold. Eyes: The patient denies glaucoma, denies eye injury/surgery, does not wear glasses or contacts. Ear/Nose/Throat: The patient NOTES allergies, denies hayfever, denies ear infections, and denies bloody noses. Cardiovascular: The patient denies chest pain, denies heart disease, denies high blood pressure,denies cardiac stent, denies prior heart attack, denies irregular heart beat, denies high cholesterol, NOTES poor circulation, denies heart failure, other cardiac issues, NOTES claudication, denies cold feet, denies peripheral arterial stent. Respiratory: The patient denies tuberculosis, denies pneumonia, NOTES frequent cough, denies pulmonary embolism, denies shortness of breath, and denies coughing up blood. Gastrointestinal: The patient denies difficulty swallowing, denies acid reflux, denies ulcers, denies vomiting, denies jaundice/hepatitis, denies gallbladder problems, denies black or tarry stools, denies hemorrhoids, NOTES bleeding from rectum, denies diverticulitis, NOTES constipation, denies diarrhea, denies loss of stool control, and denies hernias. Kidney/Bladder: The patient denies kidney stones, NOTES urine infections, and NOTES bloody urine. Skin: The patient denies a history of skin cancer, denies bleeding/changing moles, and NOTES a history of skin rash. Neurologic: The patient denies a history of epilepsy/convulsions, NOTES headaches, denies head/spinal injuries, and denies stroke/TIA. Psychiatric: The patient denies psychiatric medications, denies depression, and denies voices, denies substance abuse. Endocrine: The patient NOTES thyroid disorders, NOTES diabetes, and NOTES hormonal problems. Hematologic: The patient denies a history of bruising, denies bleeding, and NOTES anemia, denies blood clots. Infections: The patient denies a history of measles and mumps, denies rheumatic fever, and denies sexually transmitted diseases. Musculoskeletal: The patient NOTES back pain/injury, NOTES back problems, NOTES sciatica, NOTES knee/foot trouble, NOTES arthritis, or denies gout. When was patient's last Mammogram screening? 2021 Last Colonoscopy: 2017 Saundra Qiu LPN I have confirmed and edited as necessary, the PFSH and ROS obtained by others. Yessy White PA-C PHYSICAL EXAMINATION: General: The patient is 57 year old female, well nourished, well hydrated in no acute distress. Thepatient is oriented to time, place, and person. VITALS: Blood pressure 124/78, pulse 101, temperature 36.1 C (97 F), height 154.9 cm (5' 1), weight 120.9 kg (266 lb 9.6 oz), last menstrual period 09/27/2013, SpO2 95 %. There is no height or weight on file to calculate BMI. HEENT: Normal cephalic, ataumatic, pupils are equally round, sclera are anicteric, mucous membranesare moist, oropharynx is clear. Neck has no masses, asymmetry or lymphadenopathy. Respiratory: Clear to auscultation and percussion. Normal respiratory excursion and pattern. Cardiac: Examination is regular rate and rhythm. Normal S1/S2 Abdominal exam: Soft, nontender, with no palpable masses. No hepatosplenomegaly. No palpable hernias. Extremities: no clubbing, cyanosis or edema. No adenopathy. LABORATORY VALUES: As Noted RADIOLOGIC STUDIES: As Noted Assessment IMPRESSION: colitis, history of colon polyps, upset stomach, fatigue PLAN: I have reviewed my findings with the surgeon. Will plan for upper and lower endoscopy. We discussed the risks and benefits of the planned endoscopy. I have informed the patient that complications can occur including failure to complete the endoscopy and perforation. The patient had the opportunity to ask questions concerning the planned endoscopy. My staff has also explained the procedure to the patient in understandable terms and has given the patient printed material concerning the procedure. The patient freely consents to surgery. I plan to use Golytely bowel preparation The patient has medical comorbidities for which we will plan for the procedure to be performed under Monitored Anesthetic Care. Will require PACC review Diagnoses: (K52.9) Colitis (Z12.11) Encounter for screening colonoscopy Consultation requested by Dr. Douglass for an opinion regarding colitis and need for colonoscopy.My final recommendations will be communicated back to the requesting physician by way of shared Medical record or letter to requesting physician via US mail. Yessy White PA-C documented in this encounterC[facility]10[facility] Nurse Note* Saundra Qiu LPN - 05/07/2023 1:12 PM EDT REVIEW OF SYSTEMS: General: The patient NOTES fatigue, denies weight loss, denies weight gain, denies feeling hot, anddenies feelings of cold. Eyes: The patient denies glaucoma, denies eye injury/surgery, does not wear glasses or contacts. Ear/Nose/Throat: The patient NOTES allergies, denies hayfever, denies ear infections, and denies bloody noses. Cardiovascular: The patient denies chest pain, denies heart disease, denies high blood pressure,denies cardiac stent, denies prior heart attack, denies irregular heart beat, denies high cholesterol, NOTES poor circulation, denies heart failure, other cardiac issues, NOTES claudication, denies cold feet, denies peripheral arterial stent. Respiratory: The patient denies tuberculosis, denies pneumonia, NOTES frequent cough, denies pulmonary embolism, denies shortness of breath, and denies coughing up blood. Gastrointestinal: The patient denies difficulty swallowing, denies acid reflux, denies ulcers, denies vomiting, denies jaundice/hepatitis, denies gallbladder problems, denies black or tarry stools, denies hemorrhoids, NOTES bleeding from rectum, denies diverticulitis, NOTES constipation, denies diarrhea, denies loss of stool control, and denies hernias. Kidney/Bladder: The patient denies kidney stones, NOTES urine infections, and NOTES bloody urine. Skin: The patient denies a history of skin cancer, denies bleeding/changing moles, and NOTES a history of skin rash. Neurologic: The patient denies a history of epilepsy/convulsions, NOTES headaches, denies head/spinal injuries, and denies stroke/TIA. Psychiatric: The patient denies psychiatric medications, denies depression, and denies voices, denies substance abuse. Endocrine: The patient NOTES thyroid disorders, NOTES diabetes, and NOTES hormonal problems. Hematologic: The patient denies a history of bruising, denies bleeding, and NOTES anemia, denies blood clots. Infections: The patient denies a history of measles and mumps, denies rheumatic fever, and denies sexually transmitted diseases. Musculoskeletal: The patient NOTES back pain/injury, NOTES back problems, NOTES sciatica, NOTES knee/foot trouble, NOTES arthritis, or denies gout. When was patient's last Mammogram screening? 2021 Last Colonoscopy: 2017 Saundra Qiu LPN documented in this encounterC[facility]10-13-[facility] History of Present illness Narrative* Papa Douglass MD - 05/03/2023 10:00 AM EDT Chief Complaint Patient presents with: Hospital F/U Immunizations: Flu vaccination HPI Leroy Tyler is a 57 year old female who presents here today for Hospital Discharge Follow up.. Pt was admitted to [facility] on 04/[facility]/23 with c/o abdominal pain. Discharged home on 04/20/23 on Metronidazole 500 mg TID x 7 days, Lasix 20 mg daily, and Cefdinir 300 mg BID x 7 days. She was advised to restart her CPAP machine at night due to her hypoxia issues which are related to her sleep apnea. She has been having swelling of the legs and abdomen, this is off and on. She complains of having SOB while sitting which seems to be occurring more frequently. She has a few more days left of antibiotics,she states that the pain in the abdomen is not as painful as it was, still having aching of the abdomen, nausea, very fatigued. No vomiting, no diarrhea or constipation. She was told she needed to get a colonoscopy, has had 2 colonoscopies in the past had polyps removed. Pt wondering if she needs to see a mangle press catcher, hospitalist said she had stage 1 renal failure, Endo Dr. Cervantes said CKD Stage 3. Blood sugars have been running 300 to 400. She did not restart her CPAP machine. Oxygen had improved before being discharged, was not d/c with any prescription Oxygen, was not needed. Below copied from [facility]: Chief Complaint: Abd Pain Informant: patient Narrative Narrative: Patient is a 57-year-old female with history of CKD, neuropathy, type 2 diabetes mellitus, hypothyroidism and chronic leg edema presenting for right upper quadrant abdominal pain. Patient states she woke up with this pain around 2 AM. She describes it as constant and achy in nature. She denies any radiation. He feels bloated but denies any nausea or vomiting with it. Does have history of prior cholecystectomy. Does note that she has a chronic cough has been worsening over the past few days and does feel mildly short of breath. She is continued but intermittent leg swelling which is unchanged.Denies any fever, chills or URI symptoms. Denies any alcohol use. Notes her symptoms are worse withmovement. Denies any falls or trauma. Denies any change in bowel habits denies any black or blood in her stool. Denies any urinary symptoms but notes she gets chronic UTIs as well as yeast infections. Plan 1. Transient intermittent hypoxia is likely multifactorial secondary to her morbid obesity as well as her sleep apnea and diastolic CHF/HLD - Echo with normal EF and stage I diastolic dysfunction no signs of right heart strain - Continue with Lasix - She is not requiring any oxygen currently at rest, will obtain an ambulatory pulse ox - Continue with the fluid restriction - BNP is 6.4 2. Infectious colitis with UTI - Continue on Cipro and Flagyl from the ER she is tolerating a diet without any significant discomfort or abdominal pain - Urine cultures pending but should be covered with Cipro 3. DM2 with neuro apathy - Uncontrolled diabetes, will hold her home oral agents - Continue with insulin - Accu-Cheks ACHS - We will monitor and make adjustment as necessary 4. Hypothyroidism - Stable - Continue with Synthroid - Recently checked TSH was 3.79 5. Depression/anxiety - Stable - Continue with home medications DVT: [place] Hospital Course: Per HPI: LEROY TYLER, is a 57 F who presented to the emergency department at [facility] due to abdominal pain that was diffuse but predominantly in the right upper quadrant. She reported she woke up with the pain around 2 AM and reported it was constant and achy in nature. Had no r adiation and she reported that she feels bloated but has not had any vomiting. Mild nausea has beenpresent intermittently. She has a history of cholecystectomy and also reports a chronic cough. She states that off may been worse over the last couple of days. She reports lower extremity edema that is chronic. She states is not really much different she seen her legs worse at times. Stools have been normal for her. She is not no hematemesis or hematochezia, no melena. She does have KODI and is noncompliant with her CPAP. When asked her if someone could bring it in from home she states it is packed away somewhere so she has not been compliant at all. She indicates she has chronic UTIs but doesnot follow with anybody for this. She denies any current dysuria or urinary frequency. She is not on chronic suppressive therapy. Vital signs on presentation demonstrated temperature of 97.6, heart rate 105, blood pressure 150/80, respiratory rate 14 oxygen saturations were 96% on room air. Her chemistry shows a sodium of 131 however her blood glucose level is 430 and when corrected her actual sodium is 139. Her serum bicarb is 29 her anion gap is normal despite her severely elevated glucose. BUN and creatinine are normal. Liver functions are fairly unremarkable. Lipase is 26. Her UA is consistent with infection the patient does report she has issues with chronic UTIs however she is asymptomatic at this point. EKG showsa right bundle branch block with poor R wave progression but no ST-T wave changes concerning for acute ischemia and intervals are normal. Given her abdominal pain a CT of abdomen pelvis was performedand shows hepatomegaly with minimal increased markings at the right hepatorenal space and proximal focal thickening at the hepatic flexure consistent with colitis. Chest x-ray shows vascular congestion and possible CHF. Basic natruretic peptide has been ordered however the machine is down and currently we are unable to obtain a value. I requested an ABG and a D-dimer be performed and they are both pending at this time. Dr. Hidalgo, from general surgery was contacted with regards to her colitis and he recommended a course of Cipro Flagyl per discussion with emergency department physician. The plan was initially to discharge her home however they got her up to ambulate her and oxygen saturations dropped into the mid 80s. They have fluctuated since then at times she will be sitting and be in the 90s and then drop into the 80s. I am obtaining an ABG to rule out obesity hypoventilation syndrome and we will calculatea gradient to do so. As noted a D-dimer is pending and if this is elevated I will get a CTA of her chest and Dopplers of her legs with edema. Hospital Course: 1. Transient intermittent hypoxia which is likely multifactorial secondary to her morbid obesity aswell as sleep apnea and diastolic CHF/IED-75-fili-old female presented to the hospital with abdominal pain that was felt to be colitis but then she was given be discharged home but was noticed to have intermittent hypoxic episodes down to like 87% on room air. She was started on Lasix which seems to have helped as she has not been needing significant amount of oxygen. She has had 2 ambulatory pulse ox is obtained during this hospitalization neither of which demonstrated the need for oxygen. I discussed with her the need to continue with Lasix on discharge as well as wear her CPAP at home and we also discussed lifestyle modifications for weight loss. I discussed with her the plan for discharge today she expressed understanding of the risk benefits of going home and would like to go home today. I do recommend that she follow-up with her PCP in 3 to 5 days for outpatient monitoring. 2. Infectious colitis with an E. coli UTI-colitis was interpreted on the CT scan and was discussed with general surgery by the ED physician. She was placed on a diet which she tolerated just fine andwas started on Cipro and Flagyl. She is tolerated these antibiotics well and on the day of discharge was elected to transition her to cefdinir secondary to her SHAHEEN for the ciprofloxacin being 1 and having an intermediate resistance to Levaquin. She was continued on Flagyl and will take both of her antibiotics for another 7 days. 3. Type 2 diabetes with neuropathy, hypothyroidism, depression, anxiety are chronic medical conditions which complicate her care. Her home medications were continued where appropriate Past medical history, appointments, medications, allergies reviewed. Previous Medical History PAST MEDICAL HISTORY Diagnosis Date Anemia Chronic kidney disease, stage III (moderate) ([facility]) Hypercholesteremia Mental disorder anxiety/depression Obesity Snoring Type II or unspecified type diabetes mellitus without mention of complication, not stated as uncontrolled Unspecified hypothyroidism Vomiting blood Previous Surgical History PAST SURGICAL HISTORY Procedure Laterality Date COLONOSCOPY FLX DX W/COLLJ SPEC WHEN PFRMD 04/01/2013 Colonoscopy COLONOSCOPY FLX DX W/COLLJ SPEC WHEN PFRMD 02/24/2018 Colonoscopy - 5 yr interval DILATION & CURETTAGE DX&/THER NONOBSTETRIC 10/2012 Dilation & curettage ESOPHAGOGASTRODUODENOSCOPY TRANSORAL DIAGNOSTIC 10/30/2013 EGD ESOPHAGOGASTRODUODENOSCOPY TRANSORAL DIAGNOSTIC 02/24/2018 EGD HYSTEROSCOPY BX W/WO D&C 12/30/2012 hysteroscopy D&C w mirena insertion INSERTION OF IUD 12/30/2012 LAPAROSCOPY SURG CHOLECYSTECTOMY 1990s Cholecystectomy, lap Family History FAMILY HISTORY Problem Relation Age of Onset Breast Cancer Mother 63 Diabetes Mother Glaucoma Mother Cancer Father Heart disease Maternal Grandfather Stroke Paternal Grandmother Patient Allergies ALLERGIES Allergen Reactions Codeine Swelling Nitrofurantoin Swelling Sulfa (Sulfonamide * Rash, Unknown Sulfamethoxazole-Tr* Rash Blisters all over Trimethoprim Unknown Current Medications Current Outpatient Medications on File Prior to Visit Medication Sig DEXCOM G7 HOTEL RECEPTIONIST misc DEXCOM G7 SENSOR nelly APPLY 1 SENSOR EVERY 10 DAYS phenazopyridine (PYRIDIUM) 200 mg tablet Take 1 tablet by mouth three times daily as needed for up to 9 doses. (Patient not taking: Reported on 03/05/2023) pantoprazole DR (PROTONIX) 40 mg tablet Take 1 tablet by mouth daily before breakfast. Take on empty stomach, 1/2 hr before meal. NOVOLOG FLEXPEN U-100 INSULIN 100 unit/mL (3 mL) Use 45-50 units with full meal. Use 10 units with a snack. If exercising after meal, use 38-40 units with that meal. meloxicam (MOBIC) 15 mg tablet Take 1 tablet by mouth once daily. Take with food. insulin needles, DISPOSABLE, (PEN NEEDLE) 31 gauge x 5/16 Use one needle 3-4 times daily with insulin. E11.65 Insulin: Yes lisinopril 2.5 mg tablet Take 1 tablet by mouth once daily. atorvastatin (LIPITOR) 20 mg tablet Take 1 tablet by mouth once daily. hydroCHLOROthiazide 25 mg tablet Take 1 tablet by mouth once daily. ferrous sulfate 325 mg (65 mg iron) tablet TAKE 1 TABLET BY MOUTH EVERY DAY semaglutide (OZEMPIC) 0.25 mg or 0.5 mg(2 mg/1.5 mL) pen Inject 0.25 mg subcutaneously one time a week. (Patient not taking: Reported on 03/05/2023) albuterol HFA (VENTOLIN HFA) 90 mcg/actuation inhaler Inhale 2 Puffs as instructed every 4 hours asneeded for wheezing/shortness of breath for up to 10 days. fluticasone (FLONASE) 50 mcg/actuation nasal spray Use 1-2 Sprays in each nostril once daily. FLUoxetine (PROZAC) 40 mg capsule Take 1 capsule by mouth once daily. blood sugar diagnostic test strip Use to check blood sugar three times daily. Dx: Type 2 DM - Uncontrolled E11.9 MULTIPLE INSULIN INJECTIONS levothyroxine (SYNTHROID) 200 mcg tablet Take once daily in addition to 150 mcg for thyroid acetaminophen (TYLENOL) 325 mg tablet Take 250 mg by mouth as needed. nystatin (MYCOSTATIN) 100,000 unit/mL suspension Take 5 mL by mouth four times daily. 1tsp swish inmouth for several minutes, then swallow (or expectorate) 4 times daily until gone. (Patient not taking: Reported on 03/05/2023) insulin degludec (TRESIBA FLEXTOUCH U-200) 200 unit/mL (3 mL) injection Inject 110 Units subcutaneously every morning. metFORMIN ER (GLUCOPHAGE XR) 500 mg 24 hr tablet Take 2 tablets by mouth twice daily. Ciclopirox (LOPROX) 8 % solution APPLY TO AFFECTED AREA DAILY AT BEDTIME. TO AFFECTED AREA. cholecalciferol, Vitamin D3, (VITAMIN D3) 1,250 mcg (50,000 unit) cap capsule Take 1 capsule by mouth one time a week. levonorgestrel (MIRENA) 20 mcg/24 hours (5 yrs) 52 mg IUD 1 Each by INTRAUTERINE route one time only. Blood-Glucose Meter misc Use to check blood sugar three times daily. Dx: Type 2 DM - Uncontrolled E11.65 Lancets lancets Use to check blood sugar three times daily. Dx: Type 2 DM - Uncontrolled E11.65 lidocaine (XYLOCAINE) 5 % ointment Apply 1 application to affected area as needed. ALCOHOL PREP PADS padm TEST BLOOD SUGARS 3 TIMES DAILY CPAP as directed. TENS unit and electrodes cmpk No current facility-administered medications on file prior to visit. Social History Social History Tobacco Use Smoking status: Former Packs/day: 0.50 Years: 10.00 Additional pack years: 0.00 Total pack years: 5.00 Types: Cigarettes Quit date: 05/29/2010 Years since quittin.9 Smokeless tobacco: Never Tobacco comments: one pack per week for 2 years Vaping Use Vaping Use: Never used Substance Use Topics Alcohol use: Yes Comment: occasionally Drug use: No Comment: marijuana in the past EXAM: BP 126/74 Pulse 90 Resp 16 Wt 122.3 kg (269 lb 11.2 oz) LMP 09/27/2013 BMI 50.96 kg/m General Appearance: Well appearing, alert, in no acute distress, well-hydrated, well nourished. andMorbidly obese. Lungs: Lungs clear to auscultation. No wheezing, rhonchi, rales.. Heart: RRR without murmur, gallop, or rubs. No ectopy. Abdomen: Normal abdominal exam, Abdomen soft, tenderness to the right upper abdomen. Bowel sounds normal. No masses, organomegaly. Extremities: Edema: bilateral feet and ankles; right worse then left Feet: Shoes and socks removed, No deformities, ulcers, calluses, normal distal pulses, and sensitive to 10 gm monofilament Health Maintenance List Hepatitis B Vaccine(1 of 3 - 3-dose series) Never done Hepatitis C Screening Never done HIV Screening Never done Pneumococcal Vaccine(2 - PCV) due on 02/04/2013 Shingrix Vaccine(1 of 2) Never done Diabetic Foot Exam due on 01/11/2022 Covid-19 Vaccine(5 - Pfizer series) due on 04/18/2022 Pap Testing due on 11/22/2022 HPV Testing due on 11/22/2022 Colorectal Cancer Screening due on 02/24/2023 Influenza Vaccine(1) due on 03/22/2023 HbA1C due on 05/21/2023 Urine Albumin:Creatinine Ratio due on 08/31/2023 Mammogram Screening due on 11/13/2023 Annual PCP Team Chronic Disease Visit due on 01/20/2024 Dilated Retinal Exam due on 03/01/2024 BP Controlled (<130/80) due on 04/16/2024 LDL Cholesterol due on 04/17/2024 DTaP,Tdap,Td Vaccine(3 - Td or Tdap) due on 06/06/2028 Depression Assessment Completed Data reviewed [facility] reports from 04/18 to 04/20 ASSESSMENT/PLAN: 1. Hospital discharge follow-up - ICD9: V67.59, ICD10: Z09 (primary diagnosis) Recommend continue with Lasix 20 mg daily Consult General Surgery for colonoscopy Get back on CPAP machine for hypoxia 2. Need for influenza vaccination - ICD9: V04.81, ICD10: Z23 - INFLUENZA VACCINE, AGE 6 MO - 64 YR, QUADRIVALENT (AFLURIA, FLULAVAL, FLUZONE) 3. Need for vaccination - ICD9: V05.9, ICD10: Z23 - INFLUENZA VACCINE, AGE 6 MO - 64 YR, QUADRIVALENT (AFLURIA, FLULAVAL, FLUZONE) - PNEUMOCOCCAL VACCINE (PREVNAR 20) 4. Colitis - ICD9: 558.9, ICD10: K52.9 Complete Antibiotics Consult Gen Surgery for colonoscopy 5. Type 2 diabetes mellitus without complication, with long-term current use of insulin (HCC) - ICD9: 250.00, V58.67, ICD10: E11.9, Z79.4 - Uncontrolled - Continue current medications - Continue with Mandy Cervantes 6. Stage 3 chronic kidney disease, unspecified whether stage 3a or 3b CKD (HCC) - ICD9: 585.3, ICD10: N18.30 Continue to monitor with labs Follows with Endo No need to see Hip Hop Dancer at this point 7. Encounter for screening colonoscopy - ICD9: V76.51, ICD10: Z12.11 Consult General Surgery 8. SOB (shortness of breath) - ICD9: 786.05, ICD10: R06.02 Continue with Lasix 20 mg daily Start the CPAP as recommended by hospital 9. Bilateral leg edema - ICD9: 782.3, ICD10: R60.0 Continue with Lasix 20 mg daily Follow up in 1 months with labs prior. I agree with the Chief Complaint, ROS, and Past Histories independently gathered by the clinical community support associate and the remaining scribed note accurately describes my personal service to the patient. Medical Decision Making: Problems: Moderate: 2+ stable chronic illnesses Data: Unique test(s) ordered: 1 Risk: Moderate: Drug management Medical Decision Making Level: 4 - Moderate Papa Douglass MD The documentation for this note was completed by Cecilia Lopez Ma acting as scribe for Papa Douglass MD. May 03, 2023 9:48 AM. Cecilia Lopez Ma documented in this encounterC[facility] Miscellaneous Notes* Telephone Encounter - Trena Narvaez RN - 05/01/2023 1:43 PM EDT Patient notified and voiced understanding. The following approved medications have been transmitted electronically. Requested Prescriptions Signed Prescriptions Disp Refills nystatin (MYCOSTATIN) 100,000 unit/mL suspension 200 mL 1 Sig: Take 5 mL by mouth four times daily. 1tsp swish in mouth for several minutes, then swallow (orexpectorate) 4 times daily until gone. Authorizing Provider: MELA GARCIA Pharmacy Information Pharmacy Address Telephone [id number] [place] [address] Trena Narvaez RN * Telephone Encounter - Mela Garcia APRN.CNP - 05/01/2023 1:12 PM EDT Prescription filed. Patient Entered Questionnaire No flowsheet data found. * Telephone Encounter - Natalya Osman RN - 05/01/2023 9:29 AM EDT Patient was recently in the hospital and prescribed two antibiotics. Reports having thrush beginning one week ago. She would like a prescription for Nystatin oral suspension. RX pending. She has a hospital follow up with Dr. Douglass on Saturday. Natalya Osman RN documented in this encounterC[facility]09-30-[facility]23 Discharge summary Author Sergo Bustillos [facility] April 20, 2023 10:09am Note Date/Time April 20, 2023 9:45am [facility] Medical Records Department [address] [place] [address] Instructions for Home/Discharge Instructions 04/20/23 0944 MR#: [id number] Acct: [id number] Name: LEROY TYLER Rep #:[id number] : 1965 57 From: Sergo brand MD PCP: Dr. Papa Douglass MD Status:AD M IN Discharge Instructions Diet Discharge Diet: Low fat / Low cholesterol, 6 Cup Fluid Restriction and Carb Control Diet Activity Discharge Activity: Return to Normal Activity Dressing / Incision Call your doctor if you observe: Fever of 101 or Higher, Shortness of breath, Dizziness, Fainting spells, Swelling in the ankles, Chest pain and Increased palpitations (irregular heartbeat) Follow Up Care Test Results: Test results from this visit will be discussed in further detail at your follow- up appointment, if applicable. Discharge Plan Admission Admit Date/Time: 04/18/23 15:10 Attending Provider: Sergo Bustillos Primary Care Provider: Papa Douglass Consulting Providers: Cecilia Villa Instructions Additional Instructions / Restrictions: Follow-up with your PCP in 3 to 5 days to monitor your renal function as you were started on Lasix to try to help take fluid off for you given that your echocardiogram demonstrated stage I diastolic dysfunction. I also recommend a fluid restriction and closer adherence to diabetic diet. Also recommend restarting your CPAP at night as part of your hypoxia issues are related to sleep apnea. Discharge Orders/Prescriptions Prescriptions: New metronidazole 500 mg Tablet 500 mg PO TID 7 Days Qty: 21 0RF cefdinir 300 mg capsule 300 mg PO BID 7 Days Qty: 14 0RF furosemide [Lasix] 20 mg tablet 20 mg PO DAILY Qty: 30 0RF Continued albuterol sulfate 2.5 mg /3 mL (0.083 %) solution for nebulization 2.5 mg INHALATION Q4H PRN PRN (Reason: Sob &/Or Wheezing) lisinopril 2.5 mg tablet 2.5 mg PO DAILY (DME) Dexcom G7 Sensor Device See Rx Instructions .Route Qty: 3 5RF Rx Instructions: 1 sensor q 10 days (DME) Dexcom G7 Donor Services Team Leader Misc See Rx Instructions .Route Qty: 1 0RF Rx Instructions: As directed levothyroxine 200 mcg tablet 200 mcg PO DAILY Qty: 90 1RF (DME) OneTouch Verio test strips Strip See Rx Instructions .Route Qty: 100 5RF Rx Instructions: 4x/day fluoxetine 40 MG capsule 40 mg PO DAILY Patient Comments: TAKE 1 CAPSULE BY MOUTH EVERY DAY atorvastatin 20 MG tablet 20 mg PO QHS metformin 500 mg tablet extended release 24 hr 1,000 mg PO DAILY Patient Comments: PT STATES TAKES BIDCM NEEDED. PER EXTERNAL HISTORY MED HAS NOT BEEN FILLEDRECENTLY. ondansetron 4 mg tablet,disintegrating 4 mg PO Q8H PRN (Reason: nausea and vomiting) Qty: 10 0RF insulin aspart U-100 [Novolog FlexPen U-100 Insulin] 100 unit/mL (3 mL) insulin pen 60 - 65 unit SUBCUT TIDCM insulin degludec [Tresiba FlexTouch U-200] 200 unit/mL (3 mL) insulin pen 80 unit SUBCUT DAILY acetaminophen 500 mg tablet 500 - 1,000 mg PO Q6H PRN (Reason: fever or pain) Referrals / Follow Up: Papa Douglass MD [Primary Care Provider] - Within 1 Week Disposition Disposition (needs filled in before D/C Order can be placed): Home, Self Care 04/20/23 1009<Electronically signed by Sergo Bustillos MD>Sergo Bustillos MD CC: Dr. Cecilia Villa DO; Dr. Papa Douglass MD ~ Signed [facility] Work Phone: [phone]) 127-658509-29-2023 Progress note Author Sergo Bustillos [facility] April 19, 2023 12:43pm Note Date/Time April 19, 2023 12:43pm [facility] Medical Records Department [address] [place] [address] Progress Note - Hospitalist 04/19/23 1237 MR#: [id number] Acct: [id number] Name: LEROY TYLER Rep #:[id number] : 1965 57 From: Sergo brand MD PCP: Dr. Papa Douglass MD Status:AD M IN Location: [place] [address] Subjective Subjective Doing well, no issues overnight. Maintaining oxygen saturations on room air Objective Data Objective Data Vital Signs: Vital Signs Temp Pulse Resp BP Pulse Ox O2 Del Method 97.9 F 84 16 126/66 H 92 Room Air 04/19/23 08:29 04/19/23 08:29 04/19/23 08:29 04/19/23 08:29 04/19/23 08:29 04/19/23 08:29 Oxygen Delivery Method Room Air Weight: 257 lb 15.053 oz Body Mass Index (BMI) 48.7 Intake & Output: Intake and Output for Last 24 Hours 04/18/23 04/19/23 04/20/23 03:59 03:59 03:59 Intake Total 925.42 / 925.42 Balance 925.42 / 925.42 Lab / Micro Data 04/19/23 05:45 04/19/23 05:45 Labs: Laboratory Results - last 24 hr 04/18/23 10:54: B-Natriuretic Peptide 6.4 04/18/23 13:38: POC Glucose 345 H 04/18/23 15:21: D-Dimer Quant (PE/DVT) 0.54 H* 04/18/23 17:31: POC Glucose 338 H 04/19/23 05:45: WBC 10.1, RBC 4.56, Hgb 12.2, Hct 38.9, MCV 85.3, MCH 26.8 L, MCHC 31.4 L, RDW Std Deviation 45.8 H, RDW Coeff of [place] 14.8 H, Plt Count 211, MPV 10.5, Immature Gran % (Auto) 2.000 H, Neut % (Auto) 59.7, Lymph % (Auto) 27.2, [place] % (Auto) 6.4, Eos % (Auto) 3.8, Baso % (Auto) 0.9, Absolute Neuts (auto) 6.0, Absolute Lymphs (auto) 2.74, Nucleated RBC % 0, Sodium 130 L, Potassium 4.2, Chloride 94 L, Carbon Dioxide 33.0 H, Anion Gap 3 L, BUN 13, Creatinine 0.84, Estim Creat Clear Calc 56.43, Est GFR (MDRD) Af Amer 90, Est GFR (MDRD) Non-Af 74, BUN/Creatinine Ratio 15.5, Glucose 378 H, Calcium 9.2, Phosphorus 4.0, Magnesium 1.9 04/19/23 05:54: POC Glucose 391 H Micro: Microbiology 04/18/23 10:45 Urine, Clean Catch Urine Culture - Preliminary Gram negative nanette 04/18/23 17:45 Nasal Secretion SARS-CoV-2 Antigen (Rapid) - Final ABG Data ABG results: ABG 04/18/23 16:18 Specimen Type ART Sample Site L Radial pH 7.43 Bicarbonate Actual 30.6 H Total CO2 32 Base Excess 6 H O2 Saturation 89 L ABG pCO2 46.4 H ABG pO2 55 L Ervin Test Positive O2 Delivery Device Room Air Vent Mode Not entered Radiography Diagnostic Testing: Radiology Impression Chest X-Ray 04/18/23 10:42 IMPRESSION: Vascular congestion and CHF. Electronically Signed: Moy Rivera MD at 12:36 EDT , Echocardiogram 04/18/23 16:23 Interpretation Summary The left ventricular ejection fraction is 60 %. Stage 1 diastolic dysfunction. Mild mitral annular calcification. Ordering Physician: Cecilia Villa Referring Physician: MD Evonne Papa Performed By: Jacobo Mello RCS Rhythm Strip Rhythm Strip: Sinus Rhythm Rate: 89 Ectopy: None Physical Exam Narrative General: Alert, Oriented x3, Cooperative, No apparent distress HEENT: Atraumatic, PERRLA, EOMI, Normocephalic Oral: Moist Mucosa Neck: Supple, No JVD Lungs: Diminished, Normal air movement, No rhonchi, No wheeze, No rales Cardiovascular: Regular rate, Regular Rhythm, Normal S1, Normal S2, No murmurs Abdomen: Soft, Non Tender, Non-Distended, No Hepato-splenomegaly Extremities: Trace edema, Capillary Refill Less than 3 Seconds Skin: No rashes, No breakdown Musculoskeletal: No Tenderness to Palpation of Joints or Extremities Neurological: Cranial nerves II-XII grossly intact, Motor Exam 5/5 strength throughout, Sensory exam intact to light touch and pain Psych/Mental Status: Normal Affect, Appropriate Assessment & Plan Assessment/Plan (1) Colitis: (2) Hypoxia: (3) Leg edema: (4) UTI (urinary tract infection): (5) Hyperglycemia: PLAN: Plan 1. Transient intermittent hypoxia is likely multifactorial secondary to her morbid obesity as well as her sleep apnea and diastolic CHF/HLD ? Echo with normal EF and stage I diastolic dysfunction no signs of right heart strain ? Continue with Lasix ? She is not requiring any oxygen currently at rest, will obtain an ambulatory pulse ox ? Continue with the fluid restriction ? BNP is 6.4 2. Infectious colitis with UTI ? Continue on Cipro and Flagyl from the ER she is tolerating a diet without any significant discomfort or abdominal pain ? Urine cultures pending but should be covered with Cipro 3. DM2 with neuro apathy ? Uncontrolled diabetes, will hold her home oral agents ? Continue with insulin ? Accu-Cheks ACHS ? We will monitor and make adjustment as necessary 4. Hypothyroidism ? Stable ? Continue with Synthroid ? Recently checked TSH was 3.79 5. Depression/anxiety ? Stable ? Continue with home medications DVT: Lovenox Charges/Coding Visit Charges Inpatient E&M: 75745 Subs Hosp L2 04/19/23 1243 <Electronically signed by Sergo Bustillos MD> Cosigner Signature (if applicable): CC: ~ Signed [facility] Work Phone: 1(505) 974-699509-28-2023 Progress note Author Cecilia Villa [facility] April 18, 2023 6:05pm Note Date/Time April 18, 2023 4:35pm [facility] Medical Records Department [address] [place] [address] Progress Note - Hospitalist 04/18/23 1635 MR#: [id number] Acct: [id number] Name: LEROY TYLER ANGEL Rep #:[id number] : 1965 57 From: Cecilia Villa DO PCP: Dr. Papa Douglass MD Status:AD M IN Location: [place] [address] Hospitalist Note ABG was obtained and I did calculate an AA gradient which was found to be 36.7. Age expected a gradient is 19. She has some other process besides obesity hypoventilation syndrome responsible for hypoxia. 04/18/23 163 <Electronically signed by Cecilia Villa DO> Cosigner Signature (if applicable): CC: ~ Signed ADDENDUM by Dr. Cecilia Villa DO on 04/18/23 at 1805 Addendum Basic natruretic peptide is 6.4 with no signs of elevation. Still not completely vent convinced she does not have some right-sided heart failure however given this finding I will decrease her Lasix dose from 40 3 times daily IV to just 40 daily and monitor renal function closely. Echocardiogram is pending. 04/18/231804<Electronically signed by Cecilia Villa DO> Cosigner Signature (if applicable): cc: ~* Signed [facility] Work Phone: [phone] Discharge summary Author Candy Archuleta [facility] April 18, 2023 4:18pm Note Date/Time April 18, 2023 11:17am [facility] Medical Records Department [address] [place] [address] Emergency Department Summary 04/18/23 MR#: [id number] Acct: [id number] Name: LEROY TYLER Rep #:[id number] : 1965 57 From: Candy Griffith PCP: Dr. Papa Douglass MD Status:AD M IN Location: [address] History of Present Illness Chief Complaint: Abd Pain Informant: patient Narrative Narrative: Patient is a 57-year-old female with history of CKD, neuropathy, type 2 diabetesmellitus, hypothyroidism and chronic leg edema presenting for right upper quadrant abdominal pain. Patient states she woke up with this pain around 2 AM. She describes it as constant and achy in nature. She denies any radiation. Hefeels bloated but denies any nausea or vomiting with it. Does have history of prior cholecystectomy. Does note that she has a chronic cough has been worsening over the past few days and does feel mildly short of breath. She is continued but intermittent leg swelling which is unchanged. Denies any fever, chills or URI symptoms. Denies any alcohol use. Notes her symptoms are worse with movement. Denies any falls or trauma. Denies any change in bowel habits denies any black or blood in her stool. Denies any urinary symptoms but notes she gets chronic UTIs as well as yeast infections. [facility] Medical History Anemia Arthritis Back pain Bloody stool Depression Diabetes History of frequent headaches Hyperlipidemia Hypertension Hypothyroid Hypothyroidism Morbid obesity Noncompliance with medication regimen Thyroid disease Home Medications albuterol sulfate 2.5 mg/3 mL (0.083 %) solution for nebulization 2.5 mg inhalation Q4H PRN PRN Sob &/Or Wheezing 04/11/18 [History Last Taken 04/17/23] lisinopril 2.5 mg tablet 2.5 mg PO DAILY BP 04/11/18 [History Last Taken 04/17/23] fluoxetine 40 mg capsule 40 mg PO DAILY DEPRESSION 02/12/19 [History Last Taken 04/17/23] atorvastatin 20 mg tablet 20 mg PO QHS CHOLESTEROL 10/06/19 [History Last Taken 04/17/23] metformin 500 mg tablet,extended release 24 hr 1,000 mg PO DAILY dm 03/29/21 [History Last Taken Unknown] ondansetron 4 mg disintegrating tablet 4 mg PO Q8H PRN nausea and vomiting #10 tabs 08/12/22 [Rx Last Taken Unknown] blood sugar diagnostic (Your Last ChanceTouch Verio test strips) #100 ea 02/18/23 [Rx Last Taken Unknown] blood-glucose meter,continuous (Dexcom G7 Donor Services Team Leader) #1 ea 02/18/23 [Rx Last Taken Unknown] blood-glucose sensor (Dexcom G7 Sensor device) #3 ea 02/18/23 [Rx Last Taken Unknown] levothyroxine 200 mcg tablet 200 mcg PO DAILY #90 tabs 02/18/23 [Rx Last Taken 04/17/23] acetaminophen 500 mg tablet 500 - 1,000 mg PO Q6H PRN fever or pain 04/18/23 [History Last Taken 04/14/23] insulin aspart U-100 100 unit/mL (3 mL) subcutaneous pen (Novolog FlexPen U-100 Insulin aspart) 60 - 65 unit subcut TIDCM 04/18/23 [History Last Taken 04/17/23] insulin degludec 200 unit/mL (3 mL) subcutaneous pen (Tresiba FlexTouch U-200 insulin) 80 unit subcut DAILY 04/18/23 [History Last Taken 04/17/23] Allergy/AdvReac Type Severity Reaction Status Date / Time codeine Allergy Angioedema Verified 04/18/23 09:47 nitrofurantoin Allergy edema Verified 04/18/23 09:47 Penicillins Allergy Rash Verified 04/18/23 09:47 Sulfa (Sulfonamide Allergy Rash Verified 04/18/23 09:47 Antibiotics) sulfamethoxazole [Bactrim] Allergy Unknown Verified 04/18/23 09:47 trimethoprim [Bactrim] Allergy Unknown Verified 04/18/23 09:47 Family History Other Cancer Surgical History Hx of cholecystectomy Social History (Updated 04/18/23 @ 15:[address] Cecilia Villa DO) household members: none Smoking Status: Former smoker alcohol intake: current alcohol intake frequency: holidays/special occasions only substance use type: does not use ROS ROS ED Constitutional Constitutional ED: Denies chills or fever(s) ENT ENT ED: Denies ear pain, rhinorrhea or sore throat Cardiovascular Cardiovascular: Denies chest pain or palpitations Respiratory/Chest Respiratory/Chest: Reports cough and dyspnea Gastrointestinal Gastrointestinal: Reports abdominal pain; Denies constipation, diarrhea, nausea or vomiting Genitourinary Genitourinary ED: Denies dysuria or hematuria Musculoskeletal Musculoskeletal: Reports other Details: right flank pain ; Denies arthralgias or myalgias Integumentary Denies rash Neurologic Neurologic: Denies headache(s) or weakness Psychiatric Psychiatric: Denies anxiety Hematologic/Lymphatic Hematologic/Lymphatic: Denies anemia or easy bleeding EXAM Physical Exam Const Vital Signs: 04/18/23 09:47 04/18/23 13:31 Temperature 97.6 F L Temperature Source Temporal Pulse Rate 105 H 83 Respiratory Rate 14 16 Blood Pressure 150/80 H 116/54 L Blood Pressure Mean 103 74 Pulse Ox 96 92 Oxygen Delivery Method Room Air Room Air Positive well nourished, well developed and obese General Appearance ED: well developed and NAD Nutritional Appearance: obese HEENT Reports moist mucous membranes Eyes PERRL and EOMs intact bilaterally Neck supple and no JVD Chest Wall inspection of chest normal Chest Narrative: TTP to palpation over the right inferior ribs, no chest wall crepitus Resp normal respiratory effort and clear to auscultation bilaterally Cardio regular rate, regular rhythm and no murmurs GI normal to inspection, nondistended, normoactive bowel sounds Palpation: tender RUQ; Negative for guarding or mass Back/Spine General Back: CVA tenderness right Cervical Spine: Negative for cervical spine tenderness Thoracic Spine / Upper Back: Negative for thoracic spinal tenderness Lumbar Spine / Lower Back: Negative for lumbar spinal tenderness Extremity normal to inspection Extremity Narrative: 2+ pedal edema General Extremety ED: Yes edema General Extremity: edema Neuro oriented x3 Sensorium / Orientation: alert Motor Exam: Negative for general weakness Psych mental status grossly normal Skin no rashes or lesions noted and no wounds MDM MDM MDM Narrative Medical decision making narrative: Patient is evaluated for sudden onset of right upper quadrant abdominal pain. Feels more bloated than normal. Does have tenderness to palpation in that area. Differential includes choledocholithiasis that she is status post cholecystectomy, renal colic, colitis, gastritis, pancreatitis and referred pleuritic pain. Also noted to have significant lower extremity edema which she states is maybe a little worse than normal but does seem to oscillate on that's thoughts and she states she is been mildly short of breath. Patient does drop her oxygen was in the ER anywhere between 90% to 85% but then she comes back up. She is mildly tachycardic. She was given some IV fluids in the ER for concern of infectious etiology. Her CBC was largely normal, CMP remarkable for pseudohyponatremia with a sodium of 131 and a glucose of 430. She has a normal anion gap and her serum osmolality is 289 so she does not meet criteria for DKA or HHNK. Patient has poorly controlled diabetes I suspect that his glucose is closer to her baseline. Her urinalysis is consistent with infection with greater than 100 white blood cells and 2+ bacteria however patient is asymptomatic from that standpoint. We will send for culture. CT of the abdomen and pelvis does show mild increased markings at the hepatic flexure concerning for possible colitis. Case discussed with surgery on-call who also reviewed her CT and agrees is likely an early colitis. On further discussion with the patient she notes that she has had colitis in the past and was on medicine for it. Is not clear what kind of colitis she had. Her last colonoscopy was over 5 years ago and she states that has since retired. We will start the patient on Cipro and Flagyl. Prior urine cultures were pansensitive and Cipro should cover for UTI as well. Patient agreeable with admission from the respiratory standpoint. I will diurese her as she has peripheral edema, pulmonary vascular congestion her chest x-ray (reviewed by myself as well as radiology) and has hypoxia. Admitting physician, Dr. Villa, does request an ABG to look at her AA gradient for possible diagnosis of obesity hypoventilation syndrome. This is ordered. D-dimer was added on in the ER which is mildly elevated at 0.54 however normal per age-adjusted. Lab Data Attestation: I reviewed the patient's lab results. Labs: Laboratory Results - last 24 hr 04/18/23 04/18/23 04/18/23 10:45 10:54 13:38 WBC 9.6 RBC 4.87 Hgb 12.9 Hct 41.4 MCV 85.0 MCH 26.5 L MCHC 31.2 L RDW Std Deviation 45.6 H RDW Coeff of [place] 14.9 H Plt Count 206 MPV 9.9 Immature Gran % (Auto) 1.100 H Neut % (Auto) 71.2 H Lymph % (Auto) 18.9 L [place] % (Auto) 5.3 Eos % (Auto) 2.7 Baso % (Auto) 0.8 Absolute Neuts (auto) 6.8 Absolute Lymphs (auto) 1.82 Nucleated RBC % 0 Sodium 131 L Potassium 5.0 Chloride 97 L Carbon Dioxide 29.0 Anion Gap 5 BUN 10 Creatinine 0.90 Estim Creat Clear Calc 52.67 Est GFR (MDRD) Af Amer 83 Est GFR (MDRD) Non-Af 68 BUN/Creatinine Ratio 11.1 Glucose 430 H Calcium 9.2 Total Bilirubin 0.70 AST 48 H ALT 50 Alkaline Phosphatase 220 H B-Natriuretic Peptide 6.4 Total Protein 8.7 H Albumin 3.0 L Globulin 5.7 H Albumin/Globulin Ratio 0.5 L Lipase 26 Urine Color Yellow Urine Clarity Cloudy Urine pH 6.0 Ur Specific [place] 1.015 Urine Protein 30 H Urine Glucose (UA) 1000 H Urine Ketones Negative Urine Occult Blood 150 H Urine Nitrite Negative Urine Bilirubin Negative Urine Urobilinogen 1 H Ur Leukocyte Esterase 500 H Urine RBC 10-25 SEEN Urine WBC >100 SEEN Ur Squamous Epith Cells 10-25 SEEN Urine Bacteria 2+ Urine Mucus 0 SEEN POC Glucose 345 H Radiography Diagnostic Testing: Clinical Impression(s) from Imaging Studies Abdomen/Pelvis CT 04/18/23 10:42 IMPRESSION: Hepatosplenomegaly. Minimal increased markings at the right hepatorenal space. Proximal focal thickening of the hepatic flexure. Electronically Signed: Moy Rivera MD at 12:33 EDT , Chest X-Ray 04/18/23 10:42 IMPRESSION: Vascular congestion and CHF. Electronically Signed: Moy Rivera MD at 12:36 EDT , Rhythm Strip Rhythm Strip: Sinus Rhythm Rate: 89 Ectopy: None EKG Initial EKG: Attestation: I personally reviewed and interpreted this EKG as follows: Interpretation: Sinus Rhythm Comments: Normal sinus rhythm at a rate of 89 bpm Bifascicular block with right bundle branch block and left anterior fascicular block Minimal voltage criteria for LVH Left axis deviation Normal ST segments Compared to prior EKG on 01/20/2023, no acute changes Management Discussion w/another healthcare provider: Hospitalist and Lisw Discharge Plan Triage Chief Complaint: Abd Pain ED Provider: Candy Archuleta Dx/Rx/DC Orders Clinical Impression: Hypoxia, Colitis, Leg edema, Hyperglycemia Primary Care Provider: Papa Douglass Disposition Disposition: Acute Care [facility] Discharge Date/Time: 04/18/23 16:16 What to do if you have Problems For any increased pain, shortness of breath, bleeding, nausea or vomiting, chest pain, or any unexpected problems, contact your Primary Care Provider. Call [facility] ([phone]) or report to the closest Emergency Room. Call 911 if necessary. 04/18/23 1618 <Electronically signed by Candy Archuleta DO> Cosigner Signature (if applicable): CC: Dr. Papa Douglass MD ~ Signed [facility] Work Phone: [phone] 382-198409-28-2023 History and physical note Author Cecilia Villa [facility] April 18, 2023 4:10pm Note Date/Time April 18, 2023 4:05pm [facility] Medical Records Department [address] [place] [id number] H&P Exam - Hospitalist 04/18/23 1521 MR#: [id number] Acct: [id number] Name: LEROY TYLER Rep #:[id number] : 1965 57 From: Cecilia Villa DO PCP: Dr. Papa Douglass MD Status:AD M IN Location: [facility] [id number] HPI - General General Date of Admission: 04/18/23 Date of Service: 04/18/23 Chief Complaint: abdominal pain HPI Narrative LEROY TYLER, is a 57 F who presented to the emergency department at [facility] due to abdominal pain that was diffuse but predominantly in the right upper quadrant. She reported she woke up with the pain around 2 AM and reported it was constant and achy in nature. Had no radiation and she reported that she feels bloated but has not had any vomiting. Mild nausea has been present intermittently. She has a history of cholecystectomy and also reports a chronic cough. She states that off may been worse over the last couple of days. She reports lower extremity edema that is chronic. She states is not really much different she seen her legs worse at times. Stools have beennormal for her. She is not no hematemesis or hematochezia, no melena. She doeshave KODI and is noncompliant with her CPAP. When asked her if someone could bring it in from home she states it is packed away somewhere so she has not beencompliant at all. She indicates she has chronic UTIs but does not follow with anybody for this. She denies any current dysuria or urinary frequency. She is not on chronic suppressive therapy. Vital signs on presentation demonstrated temperature of 97.6, heart rate 105, blood pressure 150/80, respiratory rate 14 oxygen saturations were 96% on room air. Her chemistry shows a sodium of 131 however her blood glucose level is 430and when corrected her actual sodium is 139. Her serum bicarb is 29 her anion gap is normal despite her severely elevated glucose. BUN and creatinine are normal. Liver functions are fairly unremarkable. Lipase is 26. Her UA is consistent with infection the patient does report she has issues with chronic UTIs however she is asymptomatic at this point. EKG shows a right bundle branchblock with poor R wave progression but no ST-T wave changes concerning for acuteischemia and intervals are normal. Given her abdominal pain a CT of abdomen pelvis was performed and shows hepatomegaly with minimal increased markings at the right hepatorenal space and proximal focal thickening at the hepatic flexureconsistent with colitis. Chest x-ray shows vascular congestion and possible CHF. Basic natruretic peptide has been ordered however the machine is down and currently we are unable to obtain a value. I requested an ABG and a D-dimer be performed and they are both pending at this time. Dr. Hidalgo, from general surgery was contacted with regards to her colitis and herecommended a course of Cipro Flagyl per discussion with emergency department physician. The plan was initially to discharge her home however they got her upto ambulate her and oxygen saturations dropped into the mid 80s. They have fluctuated since then at times she will be sitting and be in the 90s and then drop into the 80s. I am obtaining an ABG to rule out obesity hypoventilation syndrome and we will calculate a gradient to do so. As noted a D-dimer is pending and if this is elevated I will get a CTA of her chest and Dopplers of her legs with edema. [facility] Medical History Anemia Arthritis Back pain Bloody stool Depression Diabetes History of frequent headaches Hyperlipidemia Hypertension Hypothyroid Hypothyroidism Morbid obesity Noncompliance with medication regimen Thyroid disease Home Medications albuterol sulfate 2.5 mg/3 mL (0.083 %) solution for nebulization 2.5 mg inhalation Q4H PRN PRN Sob &/Or Wheezing 04/11/18 [History Last Taken 04/17/23] lisinopril 2.5 mg tablet 2.5 mg PO DAILY BP 04/11/18 [History Last Taken 04/17/23] fluoxetine 40 mg capsule 40 mg PO DAILY DEPRESSION 02/12/19 [History Last Taken 04/17/23] atorvastatin 20 mg tablet 20 mg PO QHS CHOLESTEROL 10/06/19 [History Last Taken 04/17/23] metformin 500 mg tablet,extended release 24 hr 1,000 mg PO DAILY dm 03/29/21 [History Last Taken Unknown] ondansetron 4 mg disintegrating tablet 4 mg PO Q8H PRN nausea and vomiting #10 tabs 08/12/22 [Rx Last Taken Unknown] blood sugar diagnostic (Your Last ChanceTouch Verio test strips) #100 ea 02/18/23 [Rx Last Taken Unknown] blood-glucose meter,continuous (Dexcom G7 Donor Services Team Leader) #1 ea 02/18/23 [Rx Last Taken Unknown] blood-glucose sensor (Dexcom G7 Sensor device) #3 ea 02/18/23 [Rx Last Taken Unknown] levothyroxine 200 mcg tablet 200 mcg PO DAILY #90 tabs 02/18/23 [Rx Last Taken 04/17/23] acetaminophen 500 mg tablet 500 - 1,000 mg PO Q6H PRN fever or pain 04/18/23 [History Last Taken 04/14/23] insulin aspart U-100 100 unit/mL (3 mL) subcutaneous pen (Novolog FlexPen U-100 Insulin aspart) 60 - 65 unit subcut TIDCM 04/18/23 [History Last Taken 04/17/23] insulin degludec 200 unit/mL (3 mL) subcutaneous pen (Tresiba FlexTouch U-200 insulin) 80 unit subcut DAILY 04/18/23 [History Last Taken 04/17/23] Allergy/AdvReac Type Severity Reaction Status Date / Time codeine Allergy Angioedema Verified 04/18/23 09:47 nitrofurantoin Allergy edema Verified 04/18/23 09:47 Penicillins Allergy Rash Verified 04/18/23 09:47 Sulfa (Sulfonamide Allergy Rash Verified 04/18/23 09:47 Antibiotics) sulfamethoxazole [Bactrim] Allergy Unknown Verified 04/18/23 09:47 trimethoprim [Bactrim] Allergy Unknown Verified 04/18/23 09:47 Family History Other Cancer Surgical History Hx of cholecystectomy Social History (Updated 04/18/23 @ 15:[address] Cecilia Villa DO) household members: none Smoking Status: Former smoker alcohol intake: current alcohol intake frequency: holidays/special occasions only substance use type: does not use ROS Constitutional Constitutional: Denies anorexia, change in weight, chills, fatigue, fever(s), malaise, night sweats, weakness or other Eyes Eyes: Denies blurry vision, change in eye color, change in vision, discharge from eye(s), double vision, erythema, eye pain, loss of vision or other ENT HEENT: Denies abnormal hearing, dysphagia, ear pain, epistaxis, headache(s), hearing loss, nasal congestion, nasal discharge, post nasal drip, sinus pressure, sore throat or other Cardiovascular Cardiovascular: Reports dyspnea on exertion and edema; Denies chest pain, claudication, lightheadedness, orthopnea, palpitations, paroxysmal nocturnal dyspnea, rapid heart rate, syncope or other Respiratory/Chest Respiratory/Chest: Reports cough, dyspnea, shortness of breath at rest and shortness of breath with exertion; Denies excessive phlegm production, hemoptysis, productive cough, wheezing or other Gastrointestinal Gastrointestinal: Reports abdominal pain and nausea; Denies coffee ground emesis, constipation, diarrhea, dyspepsia, hematemesis, hematochezia, loose stools, melena, vomiting or other Genitourinary Genitourinary: Reports urinary frequency; Denies burning urination, difficulty urinating, dysuria, hematuria, nocturia, urinary hesitancy, urinary incontinence, urinary urgency or other Musculoskeletal Musculoskeletal: Reports back pain, joint pain and joint stiffness; Denies arthralgias, joint swelling, myalgias, neck pain or other Neurologic Neurologic: Reports numbness and tingling; Denies abnormal gait, abnormal speech, confusion, disequilibrium, dizziness, focal weakness, headache(s), paresthesias, seizure-like activity, seizures, syncope, tremor(s) or other Psychiatric Psychiatric: Denies anxiety, depression, homicidal ideation, suicidal ideation or other Endocrine Endocrinology: Reports polyuria; Denies change in body appearance, cold intolerance, excessive sweating, heat intolerance, polydipsia or other Hematologic/Lymphatic Hematologic/Lymphatic: Denies anemia, easy bleeding, easy bruising, lymphadenopathy or other Allergic/Immunologic Allergic/Immunologic: Denies rhinitis, hives, eczemia, asthma or other Vital Signs Vital Signs Vital Signs: 04/18/23 09:47 04/18/23 13:31 Temperature 97.6 F L Temperature Source Temporal Pulse Rate 105 H 83 Respiratory Rate 14 16 Blood Pressure 150/80 H 116/54 L Blood Pressure Mean 103 74 Pulse Ox 96 92 Oxygen Delivery Method Room Air Room Air Weight Weight: 118.66 kg Body Mass Index (BMI) 49.4 Physical Exam Const alert, oriented x3, no apparent distress and well nourished; Negative for average body habitus or healthy appearing Constitutional Narrative: Morbidly obese, white female, sitting up in the edge of the bed, family at bedside, appears comfortable and now, oxygen saturations fluctuate between 88% and 92 during our conversation on room air at rest, nontoxic General Appearance: cooperative HEENT normocephalic, head/scalp atraumatic, hearing grossly normal bilaterally and moist oral mucous membranes HEENT Narrative: Mallampati 4, dentition is, no thrush Eyes PERRL, EOMs intact bilaterally and conjunctivae normal Eyes Narrative: No scleral icterus Neck no lymphadenopathy and supple Neck Narrative: Trachea is midline, neck is short and thick, no identifiable thyroid enlargement or nodules Resp normal respiratory effort, no retractions, no use of accessory muscles and clear to auscultation bilaterally Resp Narrative: Diminished but clear Auscultation: Negative for rales, rhonchi or wheezes Cardio regular rate, regular rhythm, S1 normal heart sound, S2 normal heart sound, no murmurs, no rub, no gallops and no clicks GI normal to inspection, nondistended, normoactive bowel sounds and soft to palpation GI Narrative: Mild diffuse on the right side of the abdomen in the upper quadrant Extremity Extremity Narrative: No clubbing or cyanosis however she is 1-2+ bilateral lower extremity pitting edema distally Skin no wounds, skin turgor normal, no jaundice, no petechiae and no mottling Neuro oriented x3, CN's II-XII intact bilaterally, moves all extremities and no focal motor deficits Neuro Narrative: Bilateral lower extremity distal neuropathy related to diabetes Speech: speech normal Psych affect normal Psych Narrative: Eye contact is good, patient interacts appropriately Results Lab / Micro Data Attestation: I reviewed the patient's lab results. 04/18/23 10:54 04/18/23 10:54 Labs: Laboratory Results - last 24 hr 04/18/23 10:45: Urine Color Yellow, Urine Clarity Cloudy, Urine pH 6.0, Ur Specific [place] 1.015, Urine Protein 30 H, Urine Glucose (UA) 1000 H, Urine Ketones Negative, Urine Occult Blood 150 H, Urine Nitrite Negative, Urine Bilirubin Negative, Urine Urobilinogen 1 H, Ur Leukocyte Esterase 500 H, Urine RBC 10-25 SEEN, Urine WBC >100 SEEN, Ur Squamous Epith Cells 10-25 SEEN, Urine Bacteria 2+, Urine Mucus 0 SEEN 04/18/23 10:54: WBC 9.6, RBC 4.87, Hgb 12.9, Hct 41.4, MCV 85.0, MCH 26.5 L, MCHC 31.2 L, RDW Std Deviation 45.6 H, RDW Coeff of [place] 14.9 H, Plt Count 206, MPV 9.9, Immature Gran % (Auto) 1.100 H, Neut % (Auto) 71.2 H, Lymph % (Auto) 18.9 L, [place] % (Auto) 5.3, Eos % (Auto) 2.7, Baso % (Auto) 0.8, Absolute Neuts (auto) 6.8, Absolute Lymphs (auto) 1.82, Nucleated RBC % 0, Sodium 131 L, Potassium 5.0, Chloride 97 L, Carbon Dioxide 29.0, Anion Gap 5, BUN 10, Creatinine 0.90, Estim Creat Clear Calc 52.67, Est GFR (MDRD) Af Amer 83, Est GFR (MDRD) Non-Af 68, BUN/Creatinine Ratio 11.1, Glucose 430 H, Calcium 9.2, Total Bilirubin 0.70, AST 48 H, ALT 50, Alkaline Phosphatase 220 H, B-Natriuretic Peptide 6.4, Total Protein 8.7 H, Albumin 3.0 L, Globulin 5.7 H, Albumin/Globulin Ratio 0.5 L, Lipase 26 04/18/23 13:38: POC Glucose 345 H Rhythm Strip Rhythm Strip: Sinus Rhythm Rate: 89 Ectopy: None Radiology Impression Abdomen/Pelvis CT 04/18/23 10:42 IMPRESSION: Hepatosplenomegaly. Minimal increased markings at the right hepatorenal space. Proximal focal thickening of the hepatic flexure. Electronically Signed: Moy Rivera MD at 12:33 EDT , Chest X-Ray 04/18/23 10:42 IMPRESSION: Vascular congestion and CHF. Electronically Signed: Moy Rivera MD at 12:36 EDT , Assessment & Plan Assessment/Plan (1) Colitis: (2) Hypoxia: (3) Leg edema: (4) UTI (urinary tract infection): (5) Hyperglycemia: PLAN: Plan Hypoxia -Unclear if this is acute or chronic as I have no previous data on her -Chest x-ray does show some volume overload -D-dimer was 0.54 however with age correction VTE is unlikely -ABG is pending -We will calculate AA gradient and if a gradient is normal then we can suspect she has obesity hypoventilation syndrome and not probably need supplemental oxygen chronically -With cough we will check COVID and respiratory viral panel -Chronically reflux could sideration chronic cough well if work-up is otherwise unremarkable -We will need ambulatory pulse ox prior to discharge -Check echocardiogram -BNP is pending (machine down) however suspect patient might have some volume overload with right-sided heart failure related to untreated sleep apnea and probable chronic hypoxia -We will use Lasix 3 times daily for now and monitor renal function -Patient will likely need pulmonary follow-up after discharge -Check echocardiogram -Fluid restriction to 1750 cc daily -Sodium restricted diet Leg edema -BNP is pending -Lasix as ordered -D-dimer was 0.4 and with age correction VTE is unlikely Colitis -Cipro/Flagyl initiated by the emergency department at the recommendation of Dr. Hidalgo -We will continue -We will allow for diet now but patient is to notify us if this worsens her pain and we will discontinue diet and make her n.p.o. -As needed pain medication UTI -Culture pending -Would recommend outpatient follow-up with urology as patient indicates she gets frequent UTIs -I suspect this may be related to her poor blood glucose control -We will be on Cipro for colitis and theoretically should be covered but will monitor DM-2 with hyperglycemia -Most recent hemoglobin A1c was 10.3 from earlier in January -Carbohydrate/cardiac diet -Continue home insulin -Hold home oral agents -SSI -Accu-Cheks as ordered -Patient is on low-dose lisinopril for renal protection but does not appear that she has a history of hypertension Hypothyroidism -TSH was recently checked and was 3.79 -Continue home levothyroxine Hyperlipidemia -Continue home atorvastatin -Patient with recent lipid check--> triglycerides 314/total cholesterol 135/LDL 44/HDL 28 Diabetic neuropathy -Pain not any current medic patient for this next-continue to monitor KODI -Patient is noncompliant with CPAP at home -Recommend outpatient follow-up with new titration study and compliance education Depression -Continue home fluoxetine Morbid obesity -BMI 49.4 -Recommend weight loss next-complicates treatment, prognosis, outcomes DVT prophylaxis - Lovenox 40 mg SQ twice daily CODE STATUS -Full code is verified prior to admission in the emergency department Charges/Coding Visit Charges Inpatient E&M: 74425 Init Hosp L3 04/18/23 1610 <Electronically signed by Cecilia Villa DO> Cosigner Signature (if applicable): CC: Dr. Cecilia Villa DO; Dr. Papa Douglass MD~ Signed [facility] Work Phone: [phone] 361-587308-15-2023 Instructions* Patient Instructions* JerniganDipikaMari D, - 03/05/2023 9:24 AM EDT Stocking Wear and Care Your doctor has recommended for you to wear compression stockings. The following instructions are to help you maintain your treatment plan and care for your stockings. You must be properly fitted before ordering your stockings. Ill-fitting stockings could be ineffective or cause injury. Put your stockings on first thing when you wake up, BEFORE you get out of bed. If you need to shower, it is recommended to lie back down after for 20-30 minutes with your feet elevated prior to putting on your stockings. Take your stockings off before bed. Do not sleep in them, unless instructed to do so after a procedure. To wash your stockings, wash with mild soap or detergent (do not use any bleach containing product), rinse well. Roll them in a towel to remove excess water and allow to air dry. There are also labor representative recommendations included with your stockings. Skin care- Wash your legs and feet and dry them well each day, especially between your toes. Beforebed, moisturize liberally with a fragrant free, creamy moisturizer (Lubriderm, Alondra, Eucerin, Sonja) Never moisturize between toes. Avoid moisturizing immediately prior to putting on your stockings. You can use rubber gloves, such as Playtex or Sig[employer]is, when putting on your stockings. The groovesin the palm of the gloved will help you pig machine crane operator the stocking while putting it on. Be sure to place theheel on first, prior to pulling up the stocking. Other devices to help with putting on stockings, like the easy glide, can be ordered online and from the location you order your stockings from. Knee- High stockings should end about an inch below the knee, if you pull them up too high, do not fold or roll them down. Place the top of the stockings in the correct place and snap out or pinch out any wrinkles. Over time, the stockings will lose their elasticity and therefore, their effectiveness. If one pairis worn daily, they should be replaced about every 4 months. If alternating between multiple pairs,they will last longer. Begin looking for replacements about a month prior to them needing replaced.This will help avoid a gap in therapeutic use. It is recommended to keep the original box so that re ordering will be easier. It is also recommended that a new fitting be completed to ensure you are wearing the most effective size. Locations: [facility]- [phone] [employer] [phone] www.[employer]- [phone] www.[employer]- [phone] Located in [facility]- clute local store and schedule a fitting. documented in this encounterC[facility]-15-[facility] History of Present illness Narrative* Mari Jernigan DO - 03/05/2023 8:24 AM EDT Images from the original note were not included. [facility] DEPART[facility] OF VASCULAR SURGERY OUTPATIENT VISIT DATE March 05, 2023 OUTPATIENT VISIT TYPE CONSULTATION SERVICE DATE: 03/05/2023 SERVICE TIME: 8:24 AM PRIMARY CARE PHYSICIAN: Papa Douglass MD REFERRING PROVIDER: No referring provider defined for this encounter. Consult requested for an opinion regarding the evaluation and treatment of the above. My final impression and recommendations will be communicated back to the requesting physician by way of the shared medical record or letter via US mail. CHIEF COMPLAINT: Patient presents with: New Patient History of Present Illness: Patient is a 57 year old White female presenting for consultation, evaluation and possible treatment of varicose veins and leg edema.bilateral heaviness, edema, and pain with walking. She has a history of neuropathy. She has been using compression however difficulty with donning the stockings . Predisposing factors included not significant. No specific history of injury or prior problems. Relieving factors include support hose, elevation of legs, and reduced activity with mild improvement in symptoms. Patient denies DVT, phlebitis, and treatment with blood thinners. PAIN ASSESSMENT: PAIN EVALUATION No data found in the last 1 encounters. Obstetric History T0 L0 SAB0 IAB0 Ectopic0 Multiple0 Live Births0 Duration of Symptoms: Progressive PAST MEDICAL HISTORY Diagnosis Date Anemia Chronic kidney disease, stage III (moderate) (HCC) Hypercholesteremia Mental disorder anxiety/depression Obesity Snoring Type II or unspecified type diabetes mellitus without mention of complication, not stated as uncontrolled Unspecified hypothyroidism Vomiting blood PAST SURGICAL HISTORY Procedure Laterality Date COLONOSCOPY FLX DX W/COLLJ SPEC WHEN PFRMD 04/01/2013 Colonoscopy COLONOSCOPY FLX DX W/COLLJ SPEC WHEN PFRMD 02/24/2018 Colonoscopy - 5 yr interval DILATION & CURETTAGE DX&/THER NONOBSTETRIC 10/2012 Dilation & curettage ESOPHAGOGASTRODUODENOSCOPY TRANSORAL DIAGNOSTIC 10/30/2013 EGD ESOPHAGOGASTRODUODENOSCOPY TRANSORAL DIAGNOSTIC 02/24/2018 EGD HYSTEROSCOPY BX W/WO D&C 12/30/2012 hysteroscopy D&C w mirena insertion INSERTION OF IUD 12/30/2012 LAPAROSCOPY SURG CHOLECYSTECTOMY 1990s Cholecystectomy, lap SOCIAL HISTORY: Social History Tobacco Use Smoking status: Former Packs/day: 0.50 Years: 10.00 Additional pack years: 0.00 Total pack years: 5.00 Types: Cigarettes Quit date: 05/29/2010 Years since quittin.7 Smokeless tobacco: Never Tobacco comments: one pack per week for 2 years Vaping Use Vaping Use: Never used Substance Use Topics Alcohol use: Yes Comment: occasionally Drug use: No Comment: marijuana in the past FAMILY HISTORY Problem Relation Age of Onset Breast Cancer Mother 63 Diabetes Mother Glaucoma Mother Cancer Father Heart disease Maternal Grandfather Stroke Paternal Grandmother MEDICATIONS: DEXCOM G7 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 phenazopyridine (PYRIDIUM) 200 mg tablet Take 1 tablet by mouth three times daily as needed for up to [address] (PROTONIX) 40 mg tablet Take 1 tablet by mouth daily before breakfast. Take on empty stomach, 1/2 hr before meal. NOVOLOG FLEXPEN U-100 INSULIN 100 unit/mL (3 mL) Use 45-50 units with full meal. Use 10 units with a snack. If exercising after meal, use 38-40 units with that meal. meloxicam (MOBIC) 15 mg tablet Take 1 tablet by mouth once daily. Take with food. insulin needles, DISPOSABLE, (PEN NEEDLE) 31 gauge x 5/16 Use one needle 3-4 times daily with insulin. E11.65 Insulin: Yes lisinopril 2.5 mg tablet Take 1 tablet by mouth once daily. atorvastatin (LIPITOR) 20 mg tablet Take 1 tablet by mouth once daily. hydroCHLOROthiazide 25 mg tablet Take 1 tablet by mouth once daily. ferrous sulfate 325 mg (65 mg iron) tablet TAKE 1 TABLET BY MOUTH EVERY DAY semaglutide (OZEMPIC) 0.25 mg or 0.5 mg(2 mg/1.5 mL) pen Inject 0.25 mg subcutaneously one time a week. albuterol HFA (VENTOLIN HFA) 90 mcg/actuation inhaler Inhale 2 Puffs as instructed every 4 hours asneeded for wheezing/shortness of breath for up to 10 days. fluticasone (FLONASE) 50 mcg/actuation nasal spray Use 1-2 Sprays in each nostril once daily. FLUoxetine (PROZAC) 40 mg capsule Take 1 capsule by mouth once daily. blood sugar diagnostic test strip Use to check blood sugar three times daily. Dx: Type 2 DM - Uncontrolled E11.9 MULTIPLE INSULIN INJECTIONS levothyroxine (SYNTHROID) 200 mcg tablet Take once daily in addition to 150 mcg for thyroid acetaminophen (TYLENOL) 325 mg tablet Take 250 mg by mouth as needed. nystatin (MYCOSTATIN) 100,000 unit/mL suspension Take 5 mL by mouth four times daily. 1tsp swish inmouth for several minutes, then swallow (or expectorate) 4 times daily until gone. insulin degludec (TRESIBA FLEXTOUCH U-200) 200 unit/mL (3 mL) injection Inject 110 Units subcutaneously every morning. metFORMIN ER (GLUCOPHAGE XR) 500 mg 24 hr tablet Take 2 tablets by mouth twice daily. Ciclopirox (LOPROX) 8 % solution APPLY TO AFFECTED AREA DAILY AT BEDTIME. TO AFFECTED AREA. cholecalciferol, Vitamin D3, (VITAMIN D3) 1,250 mcg (50,000 unit) cap capsule Take 1 capsule by mouth one time a week. levonorgestrel (MIRENA) 20 mcg/24 hours (5 yrs) 52 mg IUD 1 Each by INTRAUTERINE route one time only. Blood-Glucose Meter misc Use to check blood sugar three times daily. Dx: Type 2 DM - Uncontrolled E11.65 Lancets lancets Use to check blood sugar three times daily. Dx: Type 2 DM - Uncontrolled E11.65 lidocaine (XYLOCAINE) 5 % ointment Apply 1 application to affected area as needed. ALCOHOL PREP PADS padm TEST BLOOD SUGARS 3 TIMES DAILY CPAP as directed. TENS unit and electrodes cmpk ALLERGIES: ALLERGIES Allergen Reactions Codeine Swelling Nitrofurantoin Swelling Sulfa (Sulfonamide * Rash, Unknown Sulfamethoxazole-Tr* Rash Blisters all over Trimethoprim Unknown REVIEW of SYSTEMS: Constitutional: No weight loss, malaise or fevers. HEENT: Head Positive for headache , Ears Positive for hearing loss Respiratory: Negative for cough and shortness of breath and wheezing Cardiovascular: Negative for chest pain and Positive for leg swelling and palpitations Gatrointestinal: Negative for abdominal discomfort, blood in stools or black stools or change in bowel habits Genitourinary: No difficulty urination, nocturia >1 times per night or hematuria and UTI Musculoskeletal: Positive for back pain and muscular pain joint pain Endocrine: Negative for cold or heat intolerance, polyuria, polydipsia and goiter Hematology/Lymphatic: Negative for prolonged bleeding, bruising easily or swollen nodes Neurologic: No history or headaches, syncope, paralysis, seizures or tremors Integumentary: Negative for lesions and itching and Positive for rash PHYSICAL EXAM: VITALS: [facility] 09/27/2013 General: Alert, oriented, cooperative, healthy appearance Integumentary: Normal color, no rash, no lesions. HEENT: EOM, pupils equal, round and reactive. Cardiovascular: Pulse regular. Lungs: No chest deformities or chest wall tenderness. Abdomen: Not examined Extremities: Edema Neurological: AAOx3. Normal cognition and motor skills. Diagnostic tests reviewed for today's visit: Most recent labs Most recent imaging IMPRESSION: Ms. Tyler is a 57 year old female with bilateral lower extremity edema, venous insufficiency, secondary lymphedema . PLAN and RECOMMENDATIONS: Reviewed testing Recommend trial of compression, elevation and exercise May ultimately benefit from compression pumps and potentially lymphedema therapy Discussed importance of blood sugar control and proper foot care SIGNATURE: Mari Jernigan DO PATIENT NAME: Leroy Tyler DATE: March 05, 2023 TIME: 8:24 AM documented in this encounterC[facility]08-14-2023 Miscellaneous Notes* Telephone Encounter - Natalya Osman RN - 03/04/2023 8:21 AM EDT Patient notified. Natalya Osman RN * Telephone Encounter - Mela Garcia APRN.CNP - 03/03/2023 1:05 PM EDT Please notify pt - The cephalexin she is taking should resolve her UTI. Mela Garcia APRN.ALEXEI documented in this encounterC[facility]08-11-2023 Miscellaneous Notes* Telephone Encounter - Mela Garcia APRN.CNP - 03/01/2023 5:52 PM EDT Cephalexin and pyridium prescribed. Pt notified. Mela Garcia APRN.DRILL HAND * Telephone Encounter - Dolores Badillo RN - 03/01/2023 5:21 PM EDT PINO tried calling patient twice and she never called back today. Dolores Badillo RN * Telephone Encounter - Dolores Badillo RN - 03/01/2023 4:35 PM EDT Left message for patient to call office. Dolores Badillo RN * Telephone Encounter - Dolores Badillo RN - 03/01/2023 1:43 PM EDT Left message for patient to call office. Dolores Badillo RN * Telephone Encounter - Mela Garcia APRN.CNP - 03/01/2023 1:13 PM EDT I can send her an antibiotic. Please ask her if she can take Cipro or cephalexin and if either has been effective for UTI in the past. She has multiple allergies to antibiotics. Mela Garcia APRN.ALXEEI * Telephone Encounter - Natalya Osman RN - 03/01/2023 11:01 AM EDT Patient called to inquire about her urine results. Notified that culture will take 48 hours. Patient is miserable she said. Can you please review the UA. pH, Urine Date Value Ref Range Status 02/28/2023 5.5 5.0 - 8.0 Final Specific [place], Ur Date Value Ref Range Status 02/28/2023 1.023 1.005 - 1.030 Final Glucose, Urine Date Value Ref Range Status 02/28/2023 Negative Trace, Negative Final Bilirubin, Urine Date Value Ref Range Status 02/28/2023 Negative Negative Final Ketones, Urine Date Value Ref Range Status 02/28/2023 Negative Trace, Negative Final Hemoglobin/Blood,Ur Date Value Ref Range Status 02/28/2023 2+ (A) Negative, Trace Final Protein, Urine Date Value Ref Range Status 02/28/2023 3+ (A) Trace, Negative Final Urobilinogen Date Value Ref Range Status 02/28/2023 1+ (A) Negative Final Nitrites Date Value Ref Range Status 02/28/2023 Negative Negative Final WBC, Urine Date Value Ref Range Status 02/28/2023 >25 /HPF (A) 0-5 /HPF Final documented in this encounterC[facility]08-10-2023 Miscellaneous Notes* Telephone Encounter - Dolores Badillo RN - 02/28/2023 12:56 PM EDT Patient notified. Dolores Badillo RN * Telephone Encounter - Mela Garcia APRN.CNP - 02/28/2023 12:51 PM EDT Orders filed. Mela Garcia APRN.ALEXEI * Telephone Encounter - Dolores Badillo RN - 02/28/2023 11:10 AM EDT Patient calling c/o urinary symptoms again. Recently treated for UTI last month at [facility]. Unsure if symptoms ever resolved completed. Took cephalexin x7 days on 01/23 for it. Asking for order to be placed for her to leave sample at lab. Urine Culture on 01-22-2023 [facility] Organism is too fastidious for routine susceptibility studies. Presumptive Lactobacillus sp. Austin Count >100,000 Normal [facility] Comment on above: Performed By: #### L500.2500, L100.0100, L501.9520 #### [facility] [address] [place], [address] Dolores Badillo RN documented in this encounterC[facility] Clinic [facility]08-08-2023 Miscellaneous Notes* Telephone Encounter - Cecilia Lopez Ma - 02/26/2023 4:56 PM EDT Pt notified and voiced understanding. Cecilia Lopez Ma * Telephone Encounter - Papa Douglass MD - 02/26/2023 4:54 PM EDT Her A1c is still high at 10.7, so continue to work on controlling sugars. Everything else looked OK. Papa Douglass MD * Telephone Encounter - Wanda Ramesh LPN - 02/26/2023 8:42 AM EDT Pt calling for lab results. Please advise pt. Wanda Ramesh LPN documented in this encounterC[facility]07-02-2023 Discharge summary Author Pranav Ward [facility] January 20, 2023 10:57pm Note Date/Time January 20, 2023 6:44p [facility] Medical Records Department [address] [place] [address] Emergency Department Summary 01/20/23 MR#: [id number] Acct: [id number] Name: LEROY TYLER Rep #:[id number] : 1965 57 From: Pranav Ward MD PCP: Dr. Papa Douglass MD Status:RE G ER Location: ED HPI <DAVID Bravo - Last Filed: 01/20/23 21:00> History of Present Illness Chief Complaint: General Illness Narrative Narrative: Patient is a 57-year-old female with history of obesity, diabetes, hypothyroidism who presents to the emergency department 1 day of fatigue, feeling of bilateral arm swelling, facial swelling, feeling of overall fatigue. Patient denies any fever or chills. Patient denies any cough. Patient states that both of her arms felt heavy, she does note that she has extremity swelling however today was worse. She also states that she is been getting headaches offand on for multiple months. She denies any difficulty speaking, denies any weakness to upper or lower extremities. She denies any known injury. PFSH <DAVID Bravo - Last Filed: 01/20/23 21:00> [facility] Medical History Anemia Arthritis Back pain Bloody stool Depression Diabetes History of frequent headaches Hyperlipidemia Hypertension Hypothyroid Hypothyroidism Morbid obesity Noncompliance with medication regimen Thyroid disease Home Medications albuterol sulfate 2.5 mg/3 mL (0.083 %) solution for nebulization 2.5 mg inhalation Q4H PRN PRN Sob &/Or Wheezing 04/11/18 [History Last Taken Unknown] lisinopril 2.5 mg tablet 2.5 mg PO DAILY BP 04/11/18 [History Last Taken 10/06/19] fluoxetine 40 mg capsule 40 mg PO DAILY DEPRESSION 02/12/19 [History Last Taken 10/06/19] atorvastatin 20 mg tablet 20 mg PO QHS CHOLESTEROL 10/06/19 [History Last Taken 10/05/19] levothyroxine 200 mcg tablet 350 mcg PO DAILY THYROID 10/06/19 [History Last Taken 10/06/19] acetaminophen 325 mg tablet 650 mg (2 x 325 mg) PO Q6H PRN PRN Pain Score 1- 10/Temp > 100.7 F 10/09/19 [Rx Last Taken Unknown] insulin degludec 200 unit/mL (3 mL) subcutaneous pen 100 unit SQ DAILY dm 06/13/20 [History Last Taken Unknown] docusate sodium 100 mg capsule 100 mg PO DAILY PRN Constipation 09/07/20 [History Last Taken Unknown] metformin 500 mg tablet,extended release 24 hr 1,000 mg PO DAILY dm 03/29/21 [History Last Taken Unknown] insulin lispro 100 unit/mL subcutaneous pen 46 unit SC TIDAC dm 07/21/21 [History Last Taken Unknown] cefdinir 300 mg capsule 300 mg PO BID #10 caps 02/11/22 [Rx Last Taken Unknown] clindamycin HCl 300 mg capsule (Cleocin HCl) 300 mg PO Q6H #40 CAPSULES 06/08/22[Rx Last Taken Unknown] hydrocodone-acetaminophen 5-325mg 5mg-325mg 1 tab PO Q4H PRN PRN Pain 2 days #15TABLETS 06/08/22 [Rx Last Taken Unknown] ondansetron 4 mg disintegrating tablet 4 mg PO Q8H PRN nausea and vomiting #10 tabs 08/12/22 [Rx Last Taken Unknown] cephalexin 500 mg capsule 500 mg PO Q12 #10 CAPSULES 10/10/22 [Rx Last Taken Unknown] phenazopyridine 200 mg tablet (Pyridium) 200 mg PO BID PRN PRN Pain #10 tabs 10/10/22 [Rx Last Taken Unknown] Allergy/AdvReac Type Severity Reaction Status Date / Time codeine Allergy Angioedema Verified 01/20/23 17:42 nitrofurantoin Allergy edema Verified 01/20/23 17:42 Penicillins Allergy Rash Verified 01/20/23 17:42 Sulfa (Sulfonamide Allergy Rash Verified 01/20/23 17:42 Antibiotics) sulfamethoxazole [Bactrim] Allergy Unknown Verified 01/20/23 17:42 trimethoprim [Bactrim] Allergy Unknown Verified 01/20/23 17:42 Family History Other Cancer Surgical History Hx of cholecystectomy Social History household members: none Smoking Status: Former smoker alcohol intake: current details: Patient states she does not drink however nurse documents and prior note do substance use type: does not use ROS <DAVID Bravo - Last Filed: 01/20/23 21:00> ROS ED ROS Narrative Constitutional: Negative for fever, chills, weight loss. Positive generalized weakness Eyes: Negative for vision loss, vision change, double vision ENT: Negative for any sore throat, ear pain, congestion Cardiovascular: Negative for any chest pain, tightness, palpitations Respiratory: Negative for any cough, sputum production, hemoptysis, dyspnea, dyspnea on exertion, orthopnea Gastrointestinal: Negative for any abdominal pain, nausea, vomiting, diarrhea, constipation, blood in stool, blood in vomit : Negative for any urinary frequency, dysuria, retention, blood in urine Muscle skeletal: Negative for any muscle joint pain, stiffness, myalgias, arthralgias, neck pain, back pain. Positive for bilateral arm heaviness Neurological: Negative for any syncope, numbness or tingling, dizziness. Positive for intermittent headaches Skin: Negative for any rashes, lumps, itching, abrasions, lacerations Psychiatric: Negative for any depression, anxiety, stress, suicidal ideation, homicidal ideation Hematologic: Negative for any easy bruising, excessive bruising, easy bleeding Allergies: Negative for any eczema, hives, rash EXAM <DAVID Bravo - Last Filed: 01/20/23 21:00> Physical Exam Narrative Exam Narrative: Vital signs reviewed. HEET: Head normocephalic atraumatic, TMs clear bilaterally. Posterior pharynx is clear, moist mucous membranes. Nares clear bilaterally. Pupils are equal round reactive to light, negative for any hemotympanum, negative for any septal hematoma. Neck: Supple with no lymphadenopathy or tenderness. No signs of meningismus, negative jolt sign. Cardiac: Regular rate and rhythm no murmurs gallops or rubs, equal peripheral pulses bilaterally. Respiratory: Lungs clear to auscultation bilaterally. No chest tenderness. Abdomen: Soft, nontender, nondistended. No abdominal bruit or pulsatile masses. No hepatosplenomegaly Extremities: no signs of gross trauma or deformity. Active full range of motion of all extremities. There is slight lower leg edema however this appears chronic Neuro: Cranial nerves II through XII intact, no focal neurological deficits. NIH stroke score 0 Skin: Clean dry and intact with no rash, purpura, petechiae, vesicles or pustules. Backs/flank: No CVA tenderness, no midline spinal tenderness, no deformity. Psych: Normal mood and affect. No SI, HI or acute psychosis. Const Vital Signs: 01/20/23 17:42 01/20/23 17:47 01/20/23 19:41 Temperature 96.9 F L Temperature Source Temporal Pulse Rate 102 H Respiratory Rate 20 H 20 H Respiratory Effort Short of Breath Respiratory Pattern Normal Blood Pressure 112/66 Blood Pressure Mean 81 Pulse Ox 95 Oxygen Delivery Method Room Air Positive well nourished and well developed General Appearance ED: well developed <Dr. Pranav Ward MD - Last Filed: 01/20/23 22:57> Physical Exam Const Vital Signs: 01/20/23 17:42 01/20/23 17:47 01/20/23 19:41 Temperature 96.9 F L Temperature Source Temporal Pulse Rate 102 H Respiratory Rate 20 H 20 H Respiratory Effort Short of Breath Respiratory Pattern Normal Blood Pressure 112/66 Blood Pressure Mean 81 Pulse Ox 95 Oxygen Delivery Method Room Air MDM <DAVID Bravo - Last Filed: 01/20/23 21:00> [facility] Lab Data Labs: Laboratory Results - last 24 hr 01/20/23 01/20/23 18:25 18:56 WBC 10.7 RBC 4.89 Hgb 12.8 Hct 40.3 MCV 82.4 MCH 26.2 L MCHC 31.8 L RDW Std Deviation 43.8 RDW Coeff of [place] 14.7 H Plt Count 236 MPV 10.3 Immature Gran % (Auto) 0.600 Neut % (Auto) 64.6 Lymph % (Auto) 26.6 [place] % (Auto) 5.4 Eos % (Auto) 2.0 Baso % (Auto) 0.8 Absolute Neuts (auto) 6.9 Absolute Lymphs (auto) 2.86 Nucleated RBC % 0 Sodium 132 L Potassium 4.9 Chloride 99 Carbon Dioxide 30.0 Anion Gap 3 L BUN 20 H Creatinine 1.21 H Estim Creat Clear Calc 39.17 Est GFR (MDRD) Af Amer 59 L Est GFR (MDRD) Non-Af 49 L BUN/Creatinine Ratio 16.5 Glucose 148 H Calcium 9.2 B-Natriuretic Peptide 6.0 TSH 4.15 H Urine Color Yellow Urine Clarity Cloudy Urine pH 5.0 Ur Specific [place] 1.020 Urine Protein 100 H Urine Glucose (UA) Normal Urine Ketones 5 H Urine Occult Blood 250 H Urine Nitrite Negative Urine Bilirubin 1 H Urine Urobilinogen 4 H Ur Leukocyte Esterase 500 H Urine RBC 25-50 SEEN Urine WBC 50-100 SEEN Ur Squamous Epith Cells 0-5 SEEN Amorphous Sediment 1+ URATE Urine Bacteria 0 SEEN Urine Mucus 0 SEEN Urine Yeast RARE Radiography Diagnostic Testing: Clinical Impression(s) from Imaging Studies Brain CT 01/20/23 18:09 IMPRESSION: No definite acute or significant abnormality seen. Electronically Signed: Jorge Kilgore MD at 19:15 EDT , Chest X-Ray 01/20/23 18:29 IMPRESSION: Incomplete expansion of the lungs with minimal congestion/edema. Electronically Signed: Jorge Kilgore MD at 18:57 EDT , Treatment and Re-Evaluation :: Patient appears to be in no distress, patient's vital signs are stable. Patient presents the emergency department with multiple complaints. Patient states that her arms are heavy, she been having headaches for multiple months, she feels generalized fatigue. PatientPatient's laboratory values show a normal CBC, patient's chemistries show a sodium 132, creatinine of 1.2,, blood glucose 148, patient's TSH was 4.15, this is improved from early October that was 0.34, patient was in January 2022 53.2. Patient did receive a CT scan of the brain which showed no acute process, negative for any skull fracture, intracranial bleeding. Patient chest x-ray showed incomplete expansion of the lungs with minimal congestion/edema. Patient is not hypoxic. Secondary to the patient edema, patient will have a proBNP drawn. <Dr. Pranav Ward MD - Last Filed: 01/20/23 22:57> [facility] Narrative Medical decision making narrative: I have personally performed a face to face assessment of the patient and have reviewed the BONG Note. I performed a substantive portion of the visit including all aspects of the following. My christianson findings include: History is remarkable for multiple symptoms including edema, 20 pound weight gain, fatigue, generalized weakness this. She also complains of bilateral arm heaviness and headaches for multiple months. She denies fever, chills night sweats. She denies double vision, blurred vision or loss of vision. Denies ringing or ears or decreased hearing. She denies chest pain or shortness of breath. She denies vomiting or diarrhea. She denies black or maroon-colored stool. She denies dysuria, frequency, urgency or hematuria She states she does not normally get headaches. There is no family history of subarachnoid hemorrhage. She denies rhinorrhea, congestion or postnasal drainage. She denies neck pain or neck stiffness. She denies photophobia or sonophobia. Exam is patient is a 57-year-old woman who appears in no obvious distress. She does have exophthalmos's. Her BMI is 49.1. Lungs are clear to auscultation. Heart is regular. Rate is normal. Abdomen is soft and nontender. Bowel sounds are diminished. Patient has nonpitting edema consistent with thyroid disease. Her thyroid medicine has been recently adjusted. Medical Decision Making we will obtain UA, CBC, BMP to assess for urinary tract infection, anemia, hypothyroidism. Other additions or changes: Patient's TSH is elevated. White count is up. Comprehensive metabolic panel reveals slight elevation in creatinine with a GFR of 49 urine reveals mature and prior area without bacteruria. Since she is asymptomatic urine culture was sent. She was not treated with antibiotics. She has allergies to nitrofurantoin, penicillin, sulfa. Lab Data Attestation: I reviewed the patient's lab results. Labs: Laboratory Results - last 24 hr 01/20/23 01/20/23 18:25 18:56 WBC 10.7 RBC 4.89 Hgb 12.8 Hct 40.3 MCV 82.4 MCH 26.2 L MCHC 31.8 L RDW Std Deviation 43.8 RDW Coeff of [place] 14.7 H Plt Count 236 MPV 10.3 Immature Gran % (Auto) 0.600 Neut % (Auto) 64.6 Lymph % (Auto) 26.6 [place] % (Auto) 5.4 Eos % (Auto) 2.0 Baso % (Auto) 0.8 Absolute Neuts (auto) 6.9 Absolute Lymphs (auto) 2.86 Nucleated RBC % 0 Sodium 132 L Potassium 4.9 Chloride 99 Carbon Dioxide 30.0 Anion Gap 3 L BUN 20 H Creatinine 1.21 H Estim Creat Clear Calc 39.17 Est GFR (MDRD) Af Amer 59 L Est GFR (MDRD) Non-Af 49 L BUN/Creatinine Ratio 16.5 Glucose 148 H Calcium 9.2 B-Natriuretic Peptide 6.0 TSH 4.15 H Urine Color Yellow Urine Clarity Cloudy Urine pH 5.0 Ur Specific [place] 1.020 Urine Protein 100 H Urine Glucose (UA) Normal Urine Ketones 5 H Urine Occult Blood 250 H Urine Nitrite Negative Urine Bilirubin 1 H Urine Urobilinogen 4 H Ur Leukocyte Esterase 500 H Urine RBC 25-50 SEEN Urine WBC 50-100 SEEN Ur Squamous Epith Cells 0-5 SEEN Amorphous Sediment 1+ URATE Urine Bacteria 0 SEEN Urine Mucus 0 SEEN Urine Yeast RARE Radiography Chest X-Ray - ED: Read by ED Physician (Chest x-ray independent reviewed interpreted by me as negative for any acute findings. The film is suboptimal because only 8 ribs are seen. Radiologist raises concern for minimal congestion/edema. With a BNP is 6 this is highly unlikely.) Diagnostic Testing: Clinical Impression(s) from Imaging Studies Brain CT 01/20/23 18:09 IMPRESSION: No definite acute or significant abnormality seen. Electronically Signed: Jorge Kilgore MD at 19:15 EDT , Chest X-Ray 01/20/23 18:29 IMPRESSION: Incomplete expansion of the lungs with minimal congestion/edema. Electronically Signed: Jorge Kilgore MD at 18:57 EDT , EKG Initial EKG: Attestation: I personally reviewed and interpreted this EKG as follows: Interpretation: Sinus Rhythm Comments: Rate is 92. There is evidence of right bundle branch block and left anterior fascicular block. [place] interval is 124 ms. Cures duration 124 ms. QT duration 384 ms. There is evidence of LVH by voltage criteria. Discharge Plan Triage Chief Complaint: General Illness ED Midlevel Provider: Joel Mendoza ED Provider: Pranav Ward Dx/Rx/DC Orders Clinical Impression: Intractable headache, Generalized weakness, Edema, Hypothyroidism Instructions: ED Lymphedema, ED Pain, Acute, Uncertain Cause Prescriptions: No Action albuterol sulfate 2.5 mg /3 mL (0.083 %) solution for nebulization 2.5 mg INHALATION Q4H PRN PRN (Reason: Sob &/Or Wheezing) lisinopril 2.5 mg tablet 2.5 mg PO DAILY fluoxetine 40 MG capsule 40 mg PO DAILY Patient Comments: TAKE 1 CAPSULE BY MOUTH EVERY DAY atorvastatin 20 MG tablet 20 mg PO QHS levothyroxine 200 MCG tablet 350 mcg PO DAILY acetaminophen 325 MG tablet 650 mg PO Q6H PRN PRN (Reason: Pain Score 1-10/Temp > 100.7 F) 0RF insulin degludec 200 UNIT/ML insulin pen 100 unit SQ DAILY Patient Comments: INJECT 110 UNITS SUBCUTANEOUSLY EVERY MORNING. docusate sodium 100 MG capsule 100 mg PO DAILY PRN (Reason: Constipation) metformin 500 mg tablet extended release 24 hr 1,000 mg PO DAILY Patient Comments: TAKE 2 TABLETS BY MOUTH TWICE A DAY insulin lispro 100 UNIT/ML insulin pen 46 unit SC TIDAC Protocol: 5. Sliding Scale Insulin High Dosing Condition: 150-209 mg/dl = 3 units Condition: 210-259 mg/dl = 6 units Condition: 260-324 mg/dl = 9 units Condition: 325-374 mg/dl = 12 units Condition: 375-409 mg/dl = 14 units Condition: 410-449 mg/dl = 16 units Condition: Greater than 449 call physician Protocol Text: - Use for Total Daily Dose of Insulin 81-120 units - Very insulin resistant or septic patients HIGH DOSING ALGORITHM Rx Instructions: 46 base plus sliding scale cefdinir 300 mg capsule 300 mg PO BID Qty: 10 0RF clindamycin HCl [Cleocin HCl] 300 mg capsule 300 mg PO Q6H Qty: 40 0RF hydrocodone-acetaminophen [hydrocodone-acetaminophen] 5-325 mg tablet 1 tab PO Q4H PRN PRN (Reason: Pain) 2 Days Qty: 15 0RF ondansetron 4 mg tablet,disintegrating 4 mg PO Q8H PRN (Reason: nausea and vomiting) Qty: 10 0RF phenazopyridine [Pyridium] 200 mg tablet 200 mg PO BID PRN PRN (Reason: Pain) Qty: 10 0RF cephalexin [cephalexin] 500 mg capsule 500 mg PO Q12 Qty: 10 0RF Primary Care Provider: Papa Douglass Referrals: Papa Douglass MD [Primary Care Provider] - 1 Week if not improving Disposition Disposition: Home, Self Care What to do if you have Problems For any increased pain, shortness of breath, bleeding, nausea or vomiting, chestpain, or any unexpected problems, contact your Primary Care Provider. Call [facility] ([phone]) or report to the closest Emergency Room. Call 911 if necessary. 01/20/232256 <Electronically signed by Pranav Ward MD> Cosigner Signature (if applicable): 01/20/23 2100 <Electronically signed by Joel Mendoza NP-C> CC: Dr. Papa Douglass MD ~ Signed [facility] Work Phone: [phone] 924-382007-01-2023 History of Present illness Narrative* Papa Douglass MD - 01/19/2023 8:40 AM EDT Chief Complaint Patient presents with: Hand Pain: Bilateral hand pain, swelling, twitching, numbness to tips of finger HPI Leroy Tyler is a 57 year old female who presents here today for Above Complaints.. C/o bilateral hand pain, swelling, stiffness, sharp shooting pains off and on x 2-3 months. She also states she has some numbness to the finger tips and numbness in feet. She has been using ice, Tylenol, massage, doing some exercises. No injury. Has some pressure in the upper stomach up into the esophagus area, feels like something is stuck there. She also has developed a slight cough since this started. Denies any acid or reflux. Does not take anything for reflux. Last labs for diabetes done over 3 months ago. Past medical history, appointments, medications, allergies reviewed. Previous Medical History PAST MEDICAL HISTORY Diagnosis Date Anemia Hypercholesteremia Mental disorder anxiety/depression Obesity Snoring Type II or unspecified type diabetes mellitus without mention of complication, not stated as uncontrolled Unspecified hypothyroidism Vomiting blood Previous Surgical History PAST SURGICAL HISTORY Procedure Laterality Date COLONOSCOPY FLX DX W/COLLJ SPEC WHEN PFRMD 04/01/2013 Colonoscopy COLONOSCOPY FLX DX W/COLLJ SPEC WHEN PFRMD 02/24/2018 Colonoscopy - 5 yr interval DILATION & CURETTAGE DX&/THER NONOBSTETRIC 10/2012 Dilation & curettage ESOPHAGOGASTRODUODENOSCOPY TRANSORAL DIAGNOSTIC 10/30/2013 EGD ESOPHAGOGASTRODUODENOSCOPY TRANSORAL DIAGNOSTIC 02/24/2018 EGD HYSTEROSCOPY BX W/WO D&C 12/30/2012 hysteroscopy D&C w mirena insertion INSERTION OF IUD 12/30/2012 LAPAROSCOPY SURG CHOLECYSTECTOMY Cholecystectomy, lap Family History FAMILY HISTORY Problem Relation Age of Onset Breast Cancer Mother 63 Diabetes Mother Glaucoma Mother Cancer Father Heart disease Maternal Grandfather Stroke Paternal Grandmother Patient Allergies ALLERGIES Allergen Reactions Codeine Swelling Nitrofurantoin Swelling Sulfa (Sulfonamide * Rash, Unknown Sulfamethoxazole-Tr* Rash Blisters all over Trimethoprim Unknown Current Medications Current Outpatient Medications on File Prior to Visit Medication Sig lisinopril 2.5 mg tablet Take 1 tablet by mouth once daily. atorvastatin (LIPITOR) 20 mg tablet Take 1 tablet by mouth once daily. hydroCHLOROthiazide 25 mg tablet Take 1 tablet by mouth once daily. ferrous sulfate 325 mg (65 mg iron) tablet TAKE 1 TABLET BY MOUTH EVERY DAY semaglutide (OZEMPIC) 0.25 mg or 0.5 mg(2 mg/1.5 mL) pen Inject 0.25 mg subcutaneously one time a week. (Patient not taking: Reported on 12/13/2022) albuterol HFA (VENTOLIN HFA) 90 mcg/actuation inhaler Inhale 2 Puffs as instructed every 4 hours asneeded for wheezing/shortness of breath for up to 10 days. insulin needles, DISPOSABLE, (PEN NEEDLE) 31 gauge x 5/16 Use one needle 3-4 times daily with insulin. E11.65 Insulin: Yes fluticasone (FLONASE) 50 mcg/actuation nasal spray Use 1-2 Sprays in each nostril once daily. NOVOLOG FLEXPEN U-100 INSULIN 100 unit/mL (3 mL) Use 44 units with full meal. Use 10 units with a snack. If exercising after meal, use 38-40 units with that meal. FLUoxetine (PROZAC) 40 mg capsule Take 1 capsule by mouth once daily. blood sugar diagnostic test strip Use to check blood sugar three times daily. Dx: Type 2 DM - Uncontrolled E11.9 MULTIPLE INSULIN INJECTIONS levothyroxine (SYNTHROID) 200 mcg tablet Take once daily in addition to 150 mcg for thyroid acetaminophen (TYLENOL) 325 mg tablet Take 250 mg by mouth as needed. nystatin (MYCOSTATIN) 100,000 unit/mL suspension Take 5 mL by mouth four times daily. 1tsp swish inmouth for several minutes, then swallow (or expectorate) 4 times daily until gone. (Patient not taking: Reported on 12/13/2022) insulin degludec (TRESIBA FLEXTOUCH U-200) 200 unit/mL (3 mL) injection Inject 110 Units subcutaneously every morning. metFORMIN ER (GLUCOPHAGE XR) 500 mg 24 hr tablet Take 2 tablets by mouth twice daily. Ciclopirox (LOPROX) 8 % solution APPLY TO AFFECTED AREA DAILY AT BEDTIME. TO AFFECTED AREA. cholecalciferol, Vitamin D3, (VITAMIN D3) 1,250 mcg (50,000 unit) cap capsule Take 1 capsule by mouth one time a week. famotidine (PEPCID) 20 mg tablet Take 1 tablet by mouth twice daily. (Patient taking differently: Take 20 mg by mouth twice daily. As needed) levonorgestrel (MIRENA) 20 mcg/24 hours (5 yrs) 52 mg IUD 1 Each by INTRAUTERINE route one time only. Blood-Glucose Meter misc Use to check blood sugar three times daily. Dx: Type 2 DM - Uncontrolled E11.65 Lancets lancets Use to check blood sugar three times daily. Dx: Type 2 DM - Uncontrolled E11.65 lidocaine (XYLOCAINE) 5 % ointment Apply 1 application to affected area as needed. ALCOHOL PREP PADS padm TEST BLOOD SUGARS 3 TIMES DAILY CPAP as directed. (Patient not taking: Reported on 12/13/2022) TENS unit and electrodes cmpk No current facility-administered medications on file prior to visit. Social History Social History Tobacco Use Smoking status: Former Packs/day: 0.50 Years: 10.00 Pack years: 5.00 Types: Cigarettes Quit date: 05/29/2010 Years since quittin.6 Smokeless tobacco: Never Tobacco comments: one pack per week for 2 years Vaping Use Vaping Use: Never used Substance Use Topics Alcohol use: Yes Comment: occasionally Drug use: No Comment: marijuana in the past EXAM: BP 118/76 Pulse 86 Resp 16 Wt 116.4 kg (256 lb 9.6 oz) LMP 09/27/2013 SpO2 96% BMI 48.48 kg/m General Appearance: Well appearing, alert, in no acute distress, well-hydrated, well nourished. andMorbidly obese. Lungs: Lungs clear to auscultation. No wheezing, rhonchi, rales.. Heart: RRR without murmur, gallop, or rubs. No ectopy. Hands: diffuse swelling, good ROM, generalized weakness and decreased sensation, more on ulnar aspect of hands. Health Maintenance List HEPATITIS B(1 of 3 - 3-dose series) Never done HEPATITIS C SCREENING Never done HIV SCREENING Never done PNEUMOCOCCAL(2 - PCV) due on 02/04/2013 SHINGRIX VACCINE(1 of 2) Never done DIABETIC FOOT EXAM due on 01/11/2022 COVID-19 VACCINE(5 - Booster for Pfizer series) due on 04/18/2022 PAP TESTING due on 11/22/2022 HPV TESTING due on 11/22/2022 HBA1C due on 12/25/2022 COLORECTAL CANCER SCREENING due on 02/24/2023 DILATED RETINAL EXAM due on 02/27/2023 INFLUENZA(Season Ended) due on 03/22/2023 URINE ALBUMIN:CREATININE RATIO due on 08/31/2023 LDL CHOLESTEROL due on 08/31/2023 ANNUAL PCP TEAM CHRONIC DISEASE VISIT due on 11/07/2023 BP CONTROLLED (<130/80) due on 11/07/2023 MAMMOGRAM due on 11/13/2023 DTAP,TDAP,TD(3 - Td or Tdap) due on 06/06/2028 DEPRESSION ASSESSMENT Completed Data reviewed none ASSESSMENT/PLAN: 1. Pain in both hands - ICD9: 729.5, ICD10: M79.641, M79.642 (primary diagnosis) Mobic 2. Type 2 diabetes mellitus without complication, with long-term current use of insulin (HCC) - ICD9: 250.00, V58.67, ICD10: E11.9, Z79.4 - Uncontrolled - check labs and follow up in 1 month - NOVOLOG FLEXPEN U-100 INSULIN ASPART 100 UNIT/ML (3 ML) SUBCUTANEOUS - PEN NEEDLE, DIABETIC 31 GAUGE X 12/04 3. Hypothyroidism, unspecified type - ICD9: 244.9, ICD10: E03.9 4. History of anemia - ICD9: V12.3, ICD10: Z86.2 Stable on recent labs 5. Mixed hyperlipidemia - ICD9: 272.2, ICD10: E78.2 - COMP METABOLIC PANEL - LIPID PANEL BASIC 6. Essential hypertension - ICD9: 401.9, ICD10: I10 - Controlled - Continue current medications - Recommend home blood pressure monitoring, to bring results to next visit - Encouraged sodium restriction, DASH or Mediterranean diet - Recommend regular aerobic exercise 7. Uncontrolled type 2 diabetes mellitus with hyperglycemia (HCC) - ICD9: 250.02, ICD10: E11.65 - COMP METABOLIC PANEL - HGB A1C - LIPID PANEL BASIC 8. GERD without esophagitis - ICD9: 530.81, ICD10: K21.9 - Begin treatment with Protonix 40 mg QD Follow up in 1 month with labs prior I agree with the Chief Complaint, ROS, and Past Histories independently gathered by the clinical community support associate and the remaining scribed note accurately describes my personal service to the patient. Medical Decision Making: Problems: Moderate: New problem with uncertain prognosis and 2+ stable chronic illnesses Data: Unique test(s) ordered: 3+ Risk: Moderate: Drug management Medical Decision Making Level: 4 - Moderate Papa Douglass MD The documentation for this note was completed by Cecilia Lopez Ma acting as scribe for Papa Douglass MD. January 19, 2023 8:10 AM. Cecilia Lopez Ma documented in this encounterC[facility]06-30-[facility] Miscellaneous Notes* Telephone Encounter - Cecilia Lopez Ma - 01/18/2023 9:21 AM EDT Paperwork all completed and faxed to the numbers below. Pt notified. Cecilia Lopez Ma * Telephone Encounter - Papa Douglass MD - 01/17/2023 5:22 PM EDT Forms done Papa Douglass MD * Telephone Encounter - Semaj Vega RN - 01/08/2023 12:12 PM EDT Patient asking if forms have been faxed. Please notify patient. * Telephone Encounter - Yessy Rodgers RN - 01/03/2023 10:27 AM EDT Please call Pt once forms have been filled out and sent in. * Telephone Encounter - Cecilia Lopez Ma - 12/31/2022 9:55 AM EDT Pt dropped off 3 sets of forms she would like completed re: Disability [employer]pers Forms Fax to [phone] [employer] Forms (notice of disability) Fax to [phone] [facility] Commissioners [place] Medical Certification Fax to [facility] at [phone] Please contact pt with any questions. Cecilia Lopez Ma documented in this encounterCleveland [facility]06-19-2023 Miscellaneous Notes* Telephone Encounter - Papa Douglass MD - 01/07/2023 1:20 PM EDT I agree with the advice given Papa Douglass MD * Telephone Encounter - Karolina Dooley RN - 01/07/2023 12:04 PM EDT Patient call in for high blood sugars. Patient unable to get blood sugars down. Patient has been adjusting insulins on own for past month or so to try and get sugars down. Patient's current blood sugar is 577 with 50 units of Novolog and 115 of Tresiba. Nurse Triage assessment completed with protocol recommending for disposition of Go to ED now. Care advice reviewed with patient, patient stated understanding. Reason for Disposition Blood glucose > 500 mg/dL (27.8 mmol/L) Answer Assessment - Initial Assessment Questions 1. BLOOD GLUCOSE: 509 after breakfast; Fasting blood sugar 350. Patient's current blood sugar after taking 50 units of Novolog and 115 Tresiba is 577. 2. ONSET: Fasting and before breakfast 3. USUAL RANGE: Usual fasting is around 200-300 4. KETONES: Denies 5. TYPE 1 or 2: Type 2 6. INSULIN: Tresiba once daily 115 units Novolog 50 units before meals 7. DIABETES PILLS: Denies 8. OTHER SYMPTOMS: Has been urinating a lot. Cloudy urine; Mouth dry; Very Unbalanced for about a month Protocols used: Diabetes - High Blood [id number] * Telephone Encounter - Gabriella Carrasco LPN - 01/07/2023 11:43 AM EDT Patient states that her blood sugars are running high. 01/05 535 5:02 pm 01/05 592 10:30 pm 01/05/ Reading high 11:00 pm 01/06 237 4:00 am 01/07 509 10:30 after a meal Patient denies any medication changes or unusual diet change. She does state she doesn't feel good but feels it is related to the high readings. documented in this encounterC[facility]06-19-2023 Miscellaneous Notes* Telephone Encounter - Mari Jalloh LPN - 01/07/2023 11:29 AM EDT Patient needs referral for Dr. Jernigan to schedule. Asking PSS to contact her when referral is placed to coordinate appt. Mari Jalloh LPN * Telephone Encounter - Imelda Shetty LPN - 01/07/2023 11:11 AM EDT Patient returned call and this nurse updated. Transferred patient to scheduling to see see Sandy Jernigan. Imelda Shetty LPN * Telephone Encounter - Miriam Ward RN - 01/07/2023 10:51 AM EDT Left pt VM to contact office of the below. * Telephone Encounter - Louis Darby - 01/03/2023 9:54 AM EDT Please call patient to inform her that her ultrasound does show some insufficiency in the venous function on the left lower extremity. This can result with swelling in legs. I would have her continuewith compression stockings. If she would like to schedule an appointment with Dr. Sandy Jernigan to discuss treatment options for this, she could do so Louis Darby DPM documented in this encounterC[facility]05-11-2023 History of Present illness Narrative* Melissa Cabrales, OD - 11/29/2022 2:20 PM EDT 1. Dry eye syndrome of bilateral lacrimal glands Urged importance of gel EVERY night Recommended Systane Complete 2-[address] of generic Recommended warm compresses every morning 2. Regular astigmatism of both eyes 3. Presbyopia Finalized spec rx 4. Type 2 diabetes mellitus without retinopathy (HCC) Follow-up in 3 months for dfe Melissa Cabrales, AMANUEL November 29, 2022 2:20 PM documented in this encounterC[facility]05-11-2023 Instructions* Patient Instructions* Melissa Cabrales, OD - 11/29/2022 2:17 PM EDT Use warm compresses every morning Use gel/ointment every night Use Systane Complete 2-3 times daily documented in this encounterC[facility]05-02-2023 Miscellaneous Notes* Telephone Encounter - Feliciano Nnuez APRN.CNP - 11/20/2022 10:19 AM EDT The following approved medication requests have been transmitted electronically. Requested Prescriptions Pending Prescriptions Disp Refills lisinopril 2.5 mg tablet 90 tablet 3 Sig: Take 1 tablet by mouth once daily. atorvastatin (LIPITOR) 20 mg tablet 90 tablet 3 Sig: Take 1 tablet by mouth once daily. Feliciano Nunez APRN.CNP * Telephone Encounter - Wanda Ramesh LPN - 11/20/2022 10:08 AM EDT Patient has been identified by name and date of : Yes, Provider Dr. Douglass Date 11/20/22 Time 10:08 am Patient phones for refill(s): Requested Prescriptions Pending Prescriptions Disp Refills lisinopril 2.5 mg tablet 90 tablet 3 Sig: Take 1 tablet by mouth once daily. atorvastatin (LIPITOR) 20 mg tablet 90 tablet 3 Sig: Take 1 tablet by mouth once daily. Date of last office visit in primary care: 11/06/22 Last 2 Encounter Wt Readings: Date: Wt: 11/06/2022 114.1 kg (251 lb 8 oz) 10/01/2022 112.5 kg (248 lb) Previous labs/tests for medication: Cholesterol: HDL Cholesterol (mg/dL) Date Value 03/12/2022 27 04/05/2021 30 HDL Cholesterol, Nonfasting (mg/dL) Date Value 08/31/2022 31 LDL Cholesterol (mg/dL) Date Value 04/05/2021 88 LDL Cholesterol, Nonfasting (mg/dL) Date Value 08/31/2022 55 ALT (U/L) Date Value 09/24/2022 19 06/08/2021 18 Non HDL Cholesterol, Nonfasting (mg/dL) Date Value 08/31/2022 95 Non HDL Cholesterol (mg/dL) Date Value 03/12/2022 64 04/05/2021 130 Blood Pressure: BUN (mg/dL) Date Value 09/24/2022 13 06/08/2021 20 Sodium (mmol/L) Date Value 09/24/2022 136 06/08/2021 136 Last 1 Encounter BP Readings: Date: BP: 11/06/2022 118/68 Thank you. Wanda Ramesh LPN documented in this encounterC[facility]04-26-2023 Miscellaneous Notes* Telephone Encounter - Karolina Dooley RN - 11/14/2022 11:38 AM EDT Patient calls and notified of provider instructions. Patient voices understanding. Karolina Dooley RN * Telephone Encounter - Yessy Rodgers RN - 11/14/2022 9:45 AM EDT Called and left a voicemail for the Patient to call back and ask for a nurse to receive the providers message. Yessy Rodgers RN * Telephone Encounter - Coco Waters APRN.DRILL HAND - 11/14/2022 7:37 AM EDT Can you please call the patient and let her know she could increase her vitamin D to 3000 to 4000 international unit(s) daily. Coco Waters APRN.CNP * Telephone Encounter - Cecilia Lopez Ma - 11/12/2022 8:51 AM EDT Spoke with pt, she is taking Vit D 1,000 international unit(s), 2 pills once daily. Has appt with Endo Dr. Cervantes. Cecilia Lopez Ma * Telephone Encounter - Cecilia Lopez Ma - 11/08/2022 4:32 PM EDT Tried to reach pt, still no answer, VM full. Unable to leave message or call back number. Will try again. Cecilia Lopez Ma * Telephone Encounter - Araceli Burris RN - 11/08/2022 9:07 AM EDT Call placed to patient with no answer and voicemail box full. Will have to call patient again later. Araceli Burris RN * Telephone Encounter - Coco Waters APRN.CNP - 11/08/2022 8:22 AM EDT Can you please call the patient and let her know that I reviewed her lab results. Iron was within normal limits, I would still recommend that she continue to take daily iron. Vitamin D was mildly low. Can you please verify if she is still taking daily vitamin D? Low vitamin D can cause fatigue. TSH was low normal, I would recommend that she keep scheduled appointments with her security chief museum. Thank you. Coco Waters APRN.CNP documented in this encounterC[facility]04-24-2023 Miscellaneous Notes* Telephone Encounter - Alison Rogel RN - 11/12/2022 4:40 PM EDT Patient returned call and given provider's message below and patient verbalized understanding. Mc Rogel RN * Telephone Encounter - Shea Husain Ma - 11/12/2022 2:12 PM EDT Called and left message on patients voicemail to return call to the office and ask to speak with a FM triage nurse. Please let pt know that we have faxed over appropriate referral paperwork to Dr. Cervantes's office. Generally we ask that you give them a few days to a week to contact pt to schedule, if she's not already. If she doesn't hear from there office to contact them to schedule. Info faxed to number below. Shea Husain Ma * Telephone Encounter - Papa Douglass MD - 11/12/2022 1:50 PM EDT OK to refer as requested Papa Douglass MD * Telephone Encounter - Darcy Lamas LPN - 11/12/2022 9:04 AM EDT Patient calling asking for referral to [facility] Dr Haile Cervantes, fax number [phone]. Patient would like to see Endocrinology for her thyroid and diabetes issues. Pending consult needs diagnosis. Please advise documented in this encounterCleveland [facility]04-18-2023 Miscellaneous Notes* Telephone Encounter - SHWETHA Fleming - 11/06/2022 2:37 PM EDT Telephoned the patient regarding missed appt. No message left, the mailbox is full. * Telephone Encounter - Kiley Randall [facility] - 10/29/2022 11:15 AM EDT Three calls made to reach patient for today's pharmacy phone visit. All calls go straight to voicemail. Left voicemail for patient. Veena EscotoD, BCACP Primary Care Clinical Pharmacist documented in this encounterCleveland Clinic [facility]04-18-2023 Miscellaneous Notes* Telephone Encounter - Kiley Randall [facility] - 11/06/2022 2:21 PM EDT Primary Care Pharmacy Rescheduling Outreach Call center, please contact patient and reschedule telephone visit for Diabetes management within ~4 week(s). (Visit length: 30 minutes) Thank you, Kiley Randall [facility] 11/06/2022 2:21 PM documented in this encounterCleveland Clinic [facility]04-06-2023 Miscellaneous Notes* Telephone Encounter - Papa Douglass MD - 10/25/2022 4:16 PM EDT Noted Papa Douglass MD * Telephone Encounter - Jonah Naranjo MD - 10/25/2022 12:14 PM EDT DOC received call from [facility] ER today. Patient had called office today and said she was having facialswelling and maybe tongue swelling. Patient was instructed to go to the ER for eval. Er provider said patient presented with complaints of swelling (did not specify face or tongue), weakness and general pain. Patient roy been seen there 2-3 times for the same complaint. ER provider said he did a CHF w/u that was neg, the only swelling was slight pedal edema. Glucose has been out of control the past few times she has been in the ER running 260-366. Her thyroid lab was ok. Patient was being released which I was in agreement with and will heri f/u with PCP/[facility]. documented in this encounterCleveland Clinic [facility]04-06-[address] Hernandez [facility] October 25, 2022 11:02am Note Date/Time October 25, 2022 9:15 am [facility] Medical Records Department [address] [place] [address] Emergency Department Summary 10/25/22 MR#: [id number] Acct: [id number] Name: LEROY TYLER Rep #:[id number] : 1965 56 From: Hiram Hernandez DO PCP: Dr. Papa Douglass MD Status:RE G ER Location: ED HPI History of Present Illness Chief Complaint: Edema Narrative Narrative: 56-year-old female presenting with chief complaint of pain all over and swellingin arms, legs, face. She states this started acutely this morning. She states the only thing she did different was drink a glass of Crystal light line made. She has not any throat closure or shortness of breath. She is not having chest pain. Denies history of CHF. Patient does have history of diabetes and states that her blood sugar this morning was in the 300s. She also states that she hadsome problems with her thyroid when she was seen a couple of months ago for this. She supposed to follow-up in a couple of months for reevaluation. She states she called her primary care physician's office this morning and they senther to the emergency room because they thought she was having allergic reaction. There are no rashes rashes. No abdominal pain, nausea. She is not short of breath. No trouble swallowing or breathing PFSH PFSH Medical History Anemia Arthritis Back pain Bloody stool Depression Diabetes History of frequent headaches Hyperlipidemia Hypertension Hypothyroid Hypothyroidism Morbid obesity Noncompliance with medication regimen Thyroid disease Home Medications albuterol sulfate 2.5 mg/3 mL (0.083 %) solution for nebulization 2.5 mg inhalation Q4H PRN PRN Sob &/Or Wheezing 04/11/18 [History Last Taken Unknown] lisinopril 2.5 mg tablet 2.5 mg PO DAILY BP 04/11/18 [History Last Taken 10/06/19] fluoxetine 40 mg capsule 40 mg PO DAILY DEPRESSION 02/12/19 [History Last Taken 10/06/19] atorvastatin 20 mg tablet 20 mg PO QHS CHOLESTEROL 10/06/19 [History Last Taken 10/05/19] levothyroxine 200 mcg tablet 350 mcg PO DAILY THYROID 10/06/19 [History Last Taken 10/06/19] acetaminophen 325 mg tablet 650 mg PO Q6H PRN PRN Pain Score 1-10/Temp > 100.7 F010/09/19 [Rx Last Taken Unknown] insulin degludec 200 unit/mL (3 mL) subcutaneous pen 100 unit SQ DAILY dm 06/13/20 [History Last Taken Unknown] docusate sodium 100 mg capsule 100 mg PO DAILY PRN Constipation 09/07/20 [History Last Taken Unknown] metformin 500 mg tablet,extended release 24 hr 1,000 mg PO DAILY dm 03/29/21 [History Last Taken Unknown] insulin lispro 100 unit/mL subcutaneous pen 46 unit SC TIDAC dm 07/21/21 [History Last Taken Unknown] cefdinir 300 mg capsule 300 mg PO BID #10 caps 02/11/22 [Rx Last Taken Unknown] clindamycin HCl 300 mg capsule (Cleocin HCl) 300 mg PO Q6H #40 CAPSULES 06/08/22[Rx Last Taken Unknown] hydrocodone-acetaminophen 5-325mg 5mg-325mg 1 tab PO Q4H PRN PRN Pain 2 days #15TABLETS 06/08/22 [Rx Last Taken Unknown] ondansetron 4 mg disintegrating tablet 4 mg PO Q8H PRN nausea and vomiting #10 tabs 08/12/22 [Rx Last Taken Unknown] cephalexin 500 mg capsule 500 mg PO Q12 #10 CAPSULES 10/10/22 [Rx Last Taken Unknown] phenazopyridine 200 mg tablet (Pyridium) 200 mg PO BID PRN PRN Pain #10 tabs 10/10/22 [Rx Last Taken Unknown] Allergy/AdvReac Type Severity Reaction Status Date / Time codeine Allergy Angioedema Verified 10/25/22 08:57 nitrofurantoin Allergy edema Verified 10/25/22 08:57 Penicillins Allergy Rash Verified 10/25/22 08:57 Sulfa (Sulfonamide Allergy Rash Verified 10/25/22 08:57 Antibiotics) sulfamethoxazole [Bactrim] Allergy Unknown Verified 10/25/22 08:57 trimethoprim [Bactrim] Allergy Unknown Verified 10/25/22 08:57 Family History Other Cancer Surgical History Hx of cholecystectomy Social History household members: none Smoking Status: Former smoker alcohol intake: current details: Patient states she does not drink however nurse documents and prior note do substance use type: does not use ROS ROS ED Constitutional Constitutional ED: Denies chills or fever(s) Eyes Eyes: Denies change in vision or diplopia ENT ENT ED: Denies rhinorrhea or sore throat Cardiovascular Cardiovascular: Denies chest pain or palpitations Respiratory/Chest Respiratory/Chest: Denies cough or dyspnea Gastrointestinal Gastrointestinal: Denies abdominal pain, nausea or vomiting Genitourinary Genitourinary ED: Denies dysuria or hematuria Musculoskeletal Musculoskeletal: Reports other Details: Pain all over ; Denies arthralgias Integumentary Denies abscess or Abrasions Neurologic Neurologic: Denies headache(s) Psychiatric Psychiatric: Denies anxiety or depression EXAM Physical Exam Const Vital Signs: 10/25/22 08:54 10/25/22 09:20 10/25/22 09:20 Temperature 96 F L Temperature Source Temporal Pulse Rate 96 Respiratory Rate 18 Respiratory Effort Normal Respiratory Pattern Normal Blood Pressure 132/64 H Blood Pressure Mean 86 Pulse Ox 97 97 Oxygen Delivery Method Room Air Room Air 10/25/22 09:51 Temperature Temperature Source Pulse Rate 71 Respiratory Rate 18 Respiratory Effort Respiratory Pattern Blood Pressure 98/61 Blood Pressure Mean 73 Pulse Ox 97 Oxygen Delivery Method Positive well nourished and obese General Appearance ED: NAD; Negative for pallor Nutritional Appearance: obese HEENT Reports moist mucous membranes Eyes PERRL and EOMs intact bilaterally General Eye ED: Negative for pale conjunctiva or scleral icterus Chest Wall inspection of chest normal Resp normal respiratory effort and clear to auscultation bilaterally Auscultation: Negative for rales, rhonchi or wheezes Cardio regular rate and regular rhythm Extremity General Extremety ED: Yes edema General Extremity: edema Neuro oriented x3 and CN's II-XII intact bilaterally Sensorium / Orientation: alert and orientation impaired Motor Exam: strength 5/5 throughout Psych mental status grossly normal Skin no rashes or lesions noted and no wounds General Skin Exam: Negative for jaundice or pallor MDM MDM MDM Narrative Medical decision making narrative: 56-year-old female presenting with edema all over. She does have evidence of lower extremity edema although I do not see any edema in her hands or in her face. We will obtain lab work including CBC to assess white blood cell count, hemoglobin and platelets, differential. BMP to assess renal function, electrolytes, glucose, anion gap. TSH, T3, T4 because the patient is a poor informant and states that she has had problems with her thyroid issues. High-sensitivity troponin, EKG, BNP to rule out CHF and heart strain. EKG on my interpretation is normal sinus rhythm with a ventricular rate of 90 bpm with bifascicular block. Unchanged from previous EKG 21 September 2022. Chest x-ray on my interpretation is no acute cardiopulmonary process. Radiologist are present and agrees. CBC with normal white blood cell count, hemoglobin stable. Platelets normal. Renal function electrolytes within normal limits with exception of a sodium of 132. Glucose is elevated at 366 without anion gap elevation. Patient reports that her blood sugars have been elevated recently. It looks like they have been in the 200s the last couple of visits here. High-sensitivity troponin 37. BNP within normal limits at 10.6. TSH was abnormal at 0.33 however her free T3 and T4 are normal. Patient was discussed with Dr. Naranjo who is on-call for her primary care physician. Discussed that she had been here twice with similar complaints. She was deferred here today out of concern she was having allergic reaction I reassured him that she has not. He states he will ensure follow-up. Discussed all findings with the patient he is amenable to discharge. Follow-up with discussed. Return precautions discussed. Impression: 1. Lymphedema 2. Myalgias Lab Data Labs: Laboratory Results - last 24 hr 10/25/22 10/25/22 10/25/22 09:20 09:20 09:20 WBC 7.3 RBC 4.69 Hgb 12.1 Hct 37.9 MCV 80.8 L MCH 25.8 L MCHC 31.9 L RDW Std Deviation 45.1 H RDW Coeff of [place] 15.5 H Plt Count 207 MPV 9.8 Immature Gran % (Auto) 1.000 H Neut % (Auto) 60.3 Lymph % (Auto) 30.7 [place] % (Auto) 5.2 Eos % (Auto) 2.1 Baso % (Auto) 0.7 Absolute Neuts (auto) 4.4 Absolute Lymphs (auto) 2.24 Nucleated RBC % 0 Sodium 132 L Potassium 4.2 Chloride 98 Carbon Dioxide 30.0 Anion Gap 4 L BUN 19 H Creatinine 0.84 Estim Creat Clear Calc 57.10 Est GFR (MDRD) Af Amer 91 Est GFR (MDRD) Non-Af 75 BUN/Creatinine Ratio 22.8 H Glucose 366 H Calcium 9.2 Troponin I High Sens 37 B-Natriuretic Peptide 10.6 TSH 0.34 L Free T4 1.22 Free T3 pg/dL 2.7 Radiography Diagnostic Testing: Clinical Impression(s) from Imaging Studies Chest X-Ray 10/25/22 09:10 IMPRESSION: Stable increased linear markings at the lung bases suggestive of bibasilar scarring. Electronically Signed: Moy Rivera MD at 10:11 EDT , Discharge Plan Triage Chief Complaint: Edema ED Provider: Hiram Hernandez Dx/Rx/DC Orders Instructions: ED Lymphedema Prescriptions: No Action albuterol sulfate 2.5 mg /3 mL (0.083 %) solution for nebulization 2.5 mg INHALATION Q4H PRN PRN (Reason: Sob &/Or Wheezing) lisinopril 2.5 mg tablet 2.5 mg PO DAILY fluoxetine 40 MG capsule 40 mg PO DAILY Label Comments: TAKE 1 CAPSULE BY MOUTH EVERY DAY atorvastatin 20 MG tablet 20 mg PO QHS levothyroxine 200 MCG tablet 350 mcg PO DAILY acetaminophen 325 MG tablet 650 mg PO Q6H PRN PRN (Reason: Pain Score 1-10/Temp > 100.7 F) 0RF insulin degludec 200 UNIT/ML insulin pen 100 unit SQ DAILY Label Comments: INJECT 110 UNITS SUBCUTANEOUSLY EVERY MORNING. docusate sodium 100 MG capsule 100 mg PO DAILY PRN (Reason: Constipation) metformin 500 mg tablet extended release 24 hr 1,000 mg PO DAILY Label Comments: TAKE 2 TABLETS BY MOUTH TWICE A DAY insulin lispro 100 UNIT/ML insulin pen 46 unit SC TIDAC Protocol: 5. Sliding Scale Insulin High Dosing Condition: 150-209 mg/dl = 3 units Condition: 210-259 mg/dl = 6 units Condition: 260-324 mg/dl = 9 units Condition: 325-374 mg/dl = 12 units Condition: 375-409 mg/dl = 14 units Condition: 410-449 mg/dl = 16 units Condition: Greater than 449 call physician Protocol Text: - Use for Total Daily Dose of Insulin 81-120 units - Very insulin resistant or septic patients HIGH DOSING ALGORITHM Rx Instructions: 46 base plus sliding scale cefdinir 300 mg capsule 300 mg PO BID Qty: 10 0RF clindamycin HCl [Cleocin HCl] 300 mg capsule 300 mg PO Q6H Qty: 40 0RF hydrocodone-acetaminophen [hydrocodone-acetaminophen] 5-325 mg tablet 1 tab PO Q4H PRN PRN (Reason: Pain) 2 Days Qty: 15 0RF ondansetron 4 mg tablet,disintegrating 4 mg PO Q8H PRN (Reason: nausea and vomiting) Qty: 10 0RF phenazopyridine [Pyridium] 200 mg tablet 200 mg PO BID PRN PRN (Reason: Pain) Qty: 10 0RF cephalexin [cephalexin] 500 mg capsule 500 mg PO Q12 Qty: 10 0RF Primary Care Provider: Papa Douglass Referrals: Papa Douglass MD [Primary Care Provider] - Disposition Disposition: Home, Self Care What to do if you have Problems For any increased pain, shortness of breath, bleeding, nausea or vomiting, chestpain, or any unexpected problems, contact your Primary Care Provider. Call [facility] ([phone]) or report to the closest Emergency Room. Call 911 if necessary. 10/25/22 1102 <Electronically signed by Hiram Hernandez DO> Cosigner Signature (if applicable): CC: Dr. Papa Douglass MD ~ Signed [facility] Work Phone: [phone]) 967-287504-04-2023 Miscellaneous Notes* Telephone Encounter - Feliciano Nunez APRN.DRILL HAND - 10/23/2022 11:03 AM EDT The following approved medication requests have been transmitted electronically. Requested Prescriptions Pending Prescriptions Disp Refills ferrous sulfate 325 mg (65 mg iron) tablet [Pharmacy Med Name: FERROUS SULFATE 325 MG TABLET] 30 tablet 5 Sig: TAKE 1 TABLET BY MOUTH EVERY DAY Feliciano Nunez APRN.ALEXEI documented in this encounterCleveland [facility]03-20-2023 History of Present illness Narrative* Kiley Randall, [facility] - 10/08/2022 11:00 AM EDT Primary Care Pharmacy Visit CC (Reason for Consult): DM Goal: A1c<8% Last Collaborating Physician/G[facility]OWER Visit: 10/01/22 Leroy Tlyer is a 56 year old female presenting for follow up visit by telephone. Patient consents to pharmacy collaborative practice agreement. At last visit with pharmacy on 10/01/22 the following changes were made: Zpack and azithromycin were started for bronchitis. INTERIM HISTORY: Started feeling sick around 09/28 On antibiotics and Z pack, starting to feel better Currently BG readings in the 200s and 300s Has self-increase Tresiba to 110 units daily No longer taking Trulicity due to cost In the past was prescribed Ozempic, was $75 per month, if able to get co- paycard, believes this maybe an option for her Current DM Medications: Metformin ER 500 mg tabs - 1,000 mg BID Insulin degludec (Tresiba) 110 units daily insulin aspart (Novolog) 44 units twice daily before meals Past DM medications: Januvia - pancreas issues and abdominal pain, levels up but not high enough for pancreatitis per patient Rybelsus - didn't like taste and GI side effects Trulicity - cost issues; states it worked well for her but too costly Ozempic - never started d/t cost ROS: Patient denies CP, SOB, ROY, blurred vision, dizziness or lightheadedness Patient denies nausea, vomiting, diarrhea, abdominal pain Patient denies symptoms of hypoglycemia (sweating, anxiety, palpitations, hunger, and tremor) Patient denies symptoms of hyperglycemia (polyuria, polydipsia, polyphagia) Patient denies potential medication adverse effects MEDICATIONS: Adherence: reports missed doses Pharmacy: [facility] on [address] Rx coverage: [employer] Affordability: brand name medications costly on current plan Diabetes supplies: [employer] System: pill box, she travels with it ACTIVE PROBLEM LIST Type II Diabetes Mellitus, Uncontrolled Hypothyroidism History of Anemia Premenopausal Menorrhagia Cellulitis Mixed Hyperlipidemia Vitamin D Deficiency Anemia Vomiting Blood Colitis Bmi 45.0-49.9, Adult (Formerly [facility]) Occult Blood Positive Stool Irritability Essential Hypertension PAST MEDICAL HISTORY Diagnosis Date Anemia Hypercholesteremia Mental disorder anxiety/depression Obesity Snoring Type II or unspecified type diabetes mellitus without mention of complication, not stated as uncontrolled Unspecified hypothyroidism Vomiting blood ALLERGIES Allergen Reactions Codeine Swelling Nitrofurantoin Swelling Sulfa (Sulfonamide * Rash, Unknown Sulfamethoxazole-Tr* Rash Blisters all over Trimethoprim Unknown Current Outpatient Medications Medication Sig ferrous sulfate 325 mg (65 mg iron) tablet Take 1 tablet by mouth once daily. albuterol HFA (VENTOLIN HFA) 90 mcg/actuation inhaler Inhale 2 Puffs as instructed every 4 hours asneeded for wheezing/shortness of breath for up to 10 days. insulin needles, DISPOSABLE, (PEN NEEDLE) 31 gauge x 5/16 Use one needle 3-4 times daily with insulin. E11.65 Insulin: Yes nitrofurantoin (FURADANTIN) 25 mg/5 mL oral liquid Bring to allergy appointment for medication challenge on 09/13/22. (Do not take at home. ) fluticasone (FLONASE) 50 mcg/actuation nasal spray Use 1-2 Sprays in each nostril once daily. NOVOLOG FLEXPEN U-100 INSULIN 100 unit/mL (3 mL) Use 44 units with full meal. Use 10 units with a snack. If exercising after meal, use 38-40 units with that meal. phenazopyridine (PYRIDIUM) 200 mg tablet Take 1 tablet by mouth three times daily as needed. FLUoxetine (PROZAC) 40 mg capsule Take 1 capsule by mouth once daily. levothyroxine (SYNTHROID) 50 mcg tablet Take 1 tablet by mouth once daily. Take on empty stomach. For Thyroid. blood sugar diagnostic test strip Use to check blood sugar three times daily. Dx: Type 2 DM - Uncontrolled E11.9 MULTIPLE INSULIN INJECTIONS hydroCHLOROthiazide (HYDRODIURIL, ESIDRIX) 12.5 mg tablet Take 1 tablet by mouth once daily. levothyroxine (SYNTHROID) 200 mcg tablet Take once daily in addition to 150 mcg for thyroid acetaminophen (TYLENOL) 325 mg tablet Take 250 mg by mouth as needed. nystatin (MYCOSTATIN) 100,000 unit/mL suspension Take 5 mL by mouth four times daily. 1tsp swish inmouth for several minutes, then swallow (or expectorate) 4 times daily until gone. nystatin-triamcinolone (MYCOLOG) ointment Apply sparingly to chest rash twice daily for irritation/infection. insulin degludec (TRESIBA FLEXTOUCH U-200) 200 unit/mL (3 mL) injection Inject 110 Units subcutaneously every morning. lisinopril 2.5 mg tablet Take 1 tablet by mouth once daily. atorvastatin (LIPITOR) 20 mg tablet Take 1 tablet by mouth once daily. metFORMIN ER (GLUCOPHAGE XR) 500 mg 24 hr tablet Take 2 tablets by mouth twice daily. Ciclopirox (LOPROX) 8 % solution APPLY TO AFFECTED AREA DAILY AT BEDTIME. TO AFFECTED AREA. cholecalciferol, Vitamin D3, (VITAMIN D3) 1,250 mcg (50,000 unit) cap capsule Take 1 capsule by mouth one time a week. famotidine (PEPCID) 20 mg tablet Take 1 tablet by mouth twice daily. nystatin (NYSTOP) powder Apply 1 application to affected area four times daily. albuterol HFA (VENTOLIN HFA) 90 mcg/actuation inhaler Inhale 2 Puffs as instructed every 4 hours asneeded for Wheezing/Shortness of Breath. levonorgestrel (MIRENA) 20 mcg/24 hours (5 yrs) 52 mg IUD 1 Each by INTRAUTERINE route one time only. Blood-Glucose Meter misc Use to check blood sugar three times daily. Dx: Type 2 DM - Uncontrolled E11.65 Lancets lancets Use to check blood sugar three times daily. Dx: Type 2 DM - Uncontrolled E11.65 lidocaine (XYLOCAINE) 5 % ointment Apply 1 application to affected area as needed. ALCOHOL PREP PADS padm TEST BLOOD SUGARS 3 TIMES DAILY CPAP as directed. TENS unit and electrodes cmpk No current facility-administered medications for this visit. EXAM: Last 3 Encounter BP Readings: Date: BP: 10/01/2022 118/64 09/27/2022 120/72 09/21/2022 118/72 Wt: 112.5 kg (248 lb) BMI: 46.86 kg/(m^2) LABS: Lab Results Component Value Date HBA1C 8.0 09/24/2022 HBA1C 9.4 06/15/2022 HBA1C 10.8 03/12/2022 HBA1C 6.5 06/08/2021 HBA1C 7.0 04/05/2021 HBA1C 13.8 01/10/2021 CMP: Glucose 302 09/24/2022 BUN 13 09/24/2022 Creatinine 0.66 09/24/2022 Sodium 136 09/24/2022 Potassium 4.5 09/24/2022 Chloride 99 09/24/2022 CO2 31 09/24/2022 Protein, Total 7.8 09/24/2022 Albumin 3.6 09/24/2022 Calcium 9.4 09/24/2022 Alkaline Phosphatase 150 09/24/2022 Bilirubin, Total 0.3 09/24/2022 AST 23 09/24/2022 ALT 19 09/24/2022 Serum creatinine: 0.66 mg/dL 09/24/22822 Estimated creatinine clearance: 112.1 mL/min No results found for: GFR eGFR- (no units) Date Value 06/08/2021 >60 Lab Results Component Value Date CHOL 126 08/31/2022 CHOL 91 03/12/2022 CHOL 160 04/05/2021 LDL 55 08/31/2022 LDL 88 04/05/2021 HDL 31 08/31/2022 HDL 27 03/12/2022 HDL 30 04/05/2021 TG 202 08/31/2022 TG 163 03/12/2022 TG 210 04/05/2021 The ASCVD Risk score (Jorge L BANG, et al., 2019) failed to calculate for the following reasons: The valid total cholesterol range is 130 to 320 mg/dL Albumin/Creat Ratio (mg/g) Date Value 08/31/2022 154 (H) PHARMACOTHERAPY ASSESSMENT/PLAN: 1. Type 2 diabetes mellitus without complication, with long-term current use of insulin (HCC) - ICD9: 250.00, V58.67, ICD10: E11.9, Z79.4 A1c goal < 8%; not at goal (last A1c 8.0%); SMBG elevated on current regimen; denies s/sx hypoglycemia; denies s/sx hyperglycemia; Patient has tolerated GLP1 RA well in the past with good BG control but cost is a barrier. She believes Ozempic is best covered on her plan, will initiates Ozempic with co-pay card. Renal function appropriate for continued use Start Ozempic 0.25 mg once weekly - Provided [employer] savings card phone number Continue Metformin ER 500 mg tabs - 1,000 mg BID Continue Insulin degludec (Tresiba) 110 units daily Continue insulin aspart (Novolog) 44 units twice daily before meals - OZEMPIC 0.25 MG OR 0.5 MG (2 MG/1.5 ML) SUBCUTANEOUS PEN INJECTOR Follow up: Patient is not scheduled to see PCP team. Patient to follow up with pharmD on 10/29/22. Patient verbalized understanding of instructions. Kiley Randall PharmD, [facility] Primary Care Clinical Pharmacist The majority of the pharmacy visit (> 50%) was spent counseling and/or coordinating care for thepatient. [Telephonic] time was 20 minutes. documented in this encounterCleveland Clinic [facility]view Hospital03-17-2023 Miscellaneous Notes* Telephone Encounter - Cecilia Lopez Ma - 10/05/2022 8:27 AM EDT Faxed. Cecilia Lopez Ma * Telephone Encounter - Papa Douglass MD - 10/04/2022 4:57 PM EDT Form done Papa Douglass MD * Telephone Encounter - Cecilia Lopez Ma - 10/04/2022 11:42 AM EDT Type of letter/form/fax request - FMLA Form received from pt on 1 floor and placed on MD desk (Dr. Douglass) for completion. Completed form needs to be faxed to [facility] at [phone] ATTN: Georgina Lopez. Pt states she has been approved for 12 weeks of [place] to work on her health. She needs this paperwork completed KEYANNA and faxed back to her employer. Pt states her leave started 09/28/22. Route to [place] when form completed for processing documented in this encounterCleveland Clinic [facility] Hospital03-14-2023 Miscellaneous Notes* Telephone Encounter - Shea Husain Ma - 10/02/2022 10:00 AM EDT Pt called and notified of results, verbalized understanding. Shea Husain Ma * Telephone Encounter - Feliciano Nunez APRN.CNP - 10/02/2022 9:22 AM EDT Please let the patient know that her COVID and influenza testing was negative. Feliciano Nunez APRN.CNP documented in this encounterCleveland Clinic [facility] Hospital03-13-2023 Miscellaneous Notes* Telephone Encounter - Coco Waters APRN.CNP - 10/01/2022 10:28 AM EDT Discussed with patient today at office visit, will evaluate labs in 1 month, sent in a prescriptionfor iron today. Coco Waters APRN.CNP * Telephone Encounter - Darcy Lamas LPN - 09/28/2022 9:04 AM EST Patient calling said she had appt yesterday and was to call with her iron dose she is taking, Ferrous sulfate 325 mg one daily. documented in this encounterC[facility] Instructions* Patient Instructions* Coco Waters APRN.CNP - 10/01/2022 9:22 AM EDT Start Zpack, take as directed. May use albuterol inhaler as needed. Continue supportive care at home. Stay well hydrated. Monitor sugars closely at home. Covid/flu test results should be back by tomorrow. Strep was negative. Follow up pending test results or sooner as needed. documented in this encounterCleveland [facility]03-13-2023 History of Present illness Narrative* Coco Waters APRN.CNP - 10/01/2022 9:00 AM EDT This is a 56 year old female who presents today with: Patient presents with: Acute Visit: cough HISTORY OF PRESENT ILLNESS: Leroy Tyler is a 56 year old female. Patient presents with: Acute Visit: cough Here in the office for ongoing cough. Was seen in ER for URI on 09/21/2022. Covid/flu negative. Started to improve but then last Saturday started to have fatigue. Dry cough, headaches, and sore throat started on Saturday. Some mild wheezing. No fevers or chills, or difficulty breathing. Has been using OTC cough medication and tylenol as needed. PAST MEDICAL HISTORY: PAST MEDICAL HISTORY Diagnosis Date Anemia Hypercholesteremia Mental disorder anxiety/depression Obesity Snoring Type II or unspecified type diabetes mellitus without mention of complication, not stated as uncontrolled Unspecified hypothyroidism Vomiting blood PAST SURGICAL HISTORY Procedure Laterality Date COLONOSCOPY FLX DX W/COLLJ SPEC WHEN PFRMD 04/01/2013 Colonoscopy COLONOSCOPY FLX DX W/COLLJ SPEC WHEN PFRMD 02/24/2018 Colonoscopy - 5 yr interval DILATION & CURETTAGE DX&/THER NONOBSTETRIC 10/2012 Dilation & curettage ESOPHAGOGASTRODUODENOSCOPY TRANSORAL DIAGNOSTIC 10/30/2013 EGD ESOPHAGOGASTRODUODENOSCOPY TRANSORAL DIAGNOSTIC 02/24/2018 EGD HYSTEROSCOPY BX W/WO D&C 12/30/2012 hysteroscopy D&C w mirena insertion INSERTION OF IUD 12/30/2012 LAPAROSCOPY SURG CHOLECYSTECTOMY 1990s Cholecystectomy, lap ALLERGIES Codeine, Nitrofurantoin, Sulfa (Sulfonamide Antibiotics), Sulfamethoxazole-Trimethoprim, and Trimethoprim MEDICATIONS Current Outpatient Medications Medication Sig nitrofurantoin (FURADANTIN) 25 mg/5 mL oral liquid Bring to allergy appointment for medication challenge on 09/13/22. (Do not take at home. ) fluticasone (FLONASE) 50 mcg/actuation nasal spray Use 1-2 Sprays in each nostril once daily. NOVOLOG FLEXPEN U-100 INSULIN 100 unit/mL (3 mL) Use 44 units with full meal. Use 10 units with a snack. If exercising after meal, use 38-40 units with that meal. phenazopyridine (PYRIDIUM) 200 mg tablet Take 1 tablet by mouth three times daily as needed. FLUoxetine (PROZAC) 40 mg capsule Take 1 capsule by mouth once daily. levothyroxine (SYNTHROID) 50 mcg tablet Take 1 tablet by mouth once daily. Take on empty stomach. For Thyroid. blood sugar diagnostic test strip Use to check blood sugar three times daily. Dx: Type 2 DM - Uncontrolled E11.9 MULTIPLE INSULIN INJECTIONS hydroCHLOROthiazide (HYDRODIURIL, ESIDRIX) 12.5 mg tablet Take 1 tablet by mouth once daily. levothyroxine (SYNTHROID) 200 mcg tablet Take once daily in addition to 150 mcg for thyroid acetaminophen (TYLENOL) 325 mg tablet Take 250 mg by mouth as needed. nystatin (MYCOSTATIN) 100,000 unit/mL suspension Take 5 mL by mouth four times daily. 1tsp swish inmouth for several minutes, then swallow (or expectorate) 4 times daily until gone. nystatin-triamcinolone (MYCOLOG) ointment Apply sparingly to chest rash twice daily for irritation/infection. insulin degludec (TRESIBA FLEXTOUCH U-200) 200 unit/mL (3 mL) injection Inject 110 Units subcutaneously every morning. lisinopril 2.5 mg tablet Take 1 tablet by mouth once daily. atorvastatin (LIPITOR) 20 mg tablet Take 1 tablet by mouth once daily. metFORMIN ER (GLUCOPHAGE XR) 500 mg 24 hr tablet Take 2 tablets by mouth twice daily. Ciclopirox (LOPROX) 8 % solution APPLY TO AFFECTED AREA DAILY AT BEDTIME. TO AFFECTED AREA. cholecalciferol, Vitamin D3, (VITAMIN D3) 1,250 mcg (50,000 unit) cap capsule Take 1 capsule by mouth one time a week. ferrous sulfate 325 mg (65 mg iron) tablet Take 1 tablet by mouth daily with breakfast. famotidine (PEPCID) 20 mg tablet Take 1 tablet by mouth twice daily. nystatin (NYSTOP) powder Apply 1 application to affected area four times daily. insulin needles, DISPOSABLE, (PEN NEEDLE) 31 gauge x 5/16 Use one needle 3-4 times daily with insulin. E11.65 Insulin: Yes albuterol HFA (VENTOLIN HFA) 90 mcg/actuation inhaler Inhale 2 Puffs as instructed every 4 hours asneeded for Wheezing/Shortness of Breath. levonorgestrel (MIRENA) 20 mcg/24 hours (5 yrs) 52 mg IUD 1 Each by INTRAUTERINE route one time only. Blood-Glucose Meter misc Use to check blood sugar three times daily. Dx: Type 2 DM - Uncontrolled E11.65 Lancets lancets Use to check blood sugar three times daily. Dx: Type 2 DM - Uncontrolled E11.65 lidocaine (XYLOCAINE) 5 % ointment Apply 1 application to affected area as needed. ALCOHOL PREP PADS padm TEST BLOOD SUGARS 3 TIMES DAILY CPAP as directed. TENS unit and electrodes cmpk No current facility-administered medications for this visit. FAMILY HISTORY Problem Relation Age of Onset Breast Cancer Mother 63 Diabetes Mother Glaucoma Mother Cancer Father Heart disease Maternal Grandfather Stroke Paternal Grandmother Social History Tobacco Use Smoking status: Former Packs/day: 0.50 Years: 10.00 Pack years: 5.00 Types: Cigarettes Quit date: 05/29/2010 Years since quittin.3 Smokeless tobacco: Never Tobacco comments: one pack per week for 2 years Vaping Use Vaping Use: Never used Substance Use Topics Alcohol use: Yes Comment: occasionally Drug use: No Comment: marijuana in the past REVIEW OF SYSTEMS GENERAL: + Fatigue HEENT: + Sore Throat NECK: Negative for lumps, goiter, pain and significant neck swelling RESPIRATORY: + Cough/Wheezing CARDIOVASCULAR: Negative for chest pain, leg swelling, orthopnea, or palpitations GI: No nausea, vomiting, or diarrhea/constipation. No hematochezia/melena. No heartburn or reflux symptoms. : No history of dysuria, frequency or incontinence MUSCULOSKELETAL: Negative for joint pain or swelling. SKIN: Negative for lesions, rash, and itching ENDOCRINE: Negative for cold or heat intolerance, polyuria, polydipsia and goiter NEURO: No history of headaches, syncope, paralysis, seizures or tremors MOOD: Negative for depression, anxiety, or suicidal ideation. EXAM: BP 118/64 Pulse 86 Temp 36.9 C (98.4 F) (Left Tympanic) Resp 16 Wt 112.5 kg (248 lb) LMP 09/27/2013 SpO2 98% BMI 46.86 kg/m PHYSICAL EXAM: General Appearance: Ill appearing, alert, in no acute distress, well-hydrated, well nourished. Skin: Skin color, texture, turgor normal, no suspicious rashes or lesions. Head: Normocephalic, no masses, lesions, tenderness or abnormalities. Eyes: Anicteric sclera. Extraocular movements are intact. Ears: External ears normal, canals clear. TMs pearly hardin. Nose/Sinuses: Positive findings: clear rhinorrhea. Oropharynx: Lips, mucosa, and tongue normal, teeth and gums normal, oropharynx normal. Neck: Supple, no adenopathy; thyroid symmetric, normal size, no bruits. Lungs: Cough and mild wheezing in upper lobes. Heart: RRR without murmur, gallop, or rubs. No ectopy. Extremities: No deformities, edema, skin discoloration, clubbing or cyanosis. Good capillary refill. Peripheral Pulses: Normal, Capillary refill <2secs, strong peripheral pulses, Pulses palpable. Neurologic: Gait normal. Sensation grossly intact. ASSESSMENT/PLAN: 1. Bronchitis - ICD9: 490, ICD10: J40 (primary diagnosis) - Treat with Zpack - May use albuterol inhaler as needed. - Continue supportive care at home, may use [id number] cold and cough medications as needed - AZITHROMYCIN 250 MG TABLET - ALBUTEROL SULFATE HFA 90 MCG/ACTUATION AEROSOL INHALER 2. Acute cough - ICD9: 786.2, ICD10: R05.1 - COVID WITH FLUA+B, ROUTINE 3. Sore throat - ICD9: 462, ICD10: J02.9 - Alere Strep Test Negative, no culture pending - STREP A MOLECULAR (POC) 4. Iron deficiency anemia secondary to inadequate dietary iron intake - ICD9: 280.1, ICD10: D50.8 - Refill provided. - Get labs completed in 1 month. - FERROUS SULFATE 325 MG (65 MG IRON) TABLET 5. Type 2 diabetes mellitus without complication, with long-term current use of insulin ([facility]) - ICD9: 250.00, V58.67, ICD10: E11.9, Z79.4 - Refill provided. - PEN NEEDLE, DIABETIC 31 GAUGE X 12/04 Follow-up pending test results or sooner as needed. Discussed treatment plan and patient voices understanding. Patient's questions answered appropriately. Medications and potential side effects were discussed and patient voices understanding. Coco Waters APRN.CNP This note was partially generated using [employer] voice recognition system. Note was reviewed for accuracy. There may be minor misspellings or grammar miscues with [employer] voice recognition. documented in this encounterC[facility]03-09-2023 Instructions* Patient Instructions* Coco Waters APRN.CNP - 09/27/2022 10:08 AM EST Decrease synthroid to 200 mcg daily. Get repeat labs in 6-8 weeks to check thyroid. Schedule appointment with Endocrinology for follow up. Keep up coming appointment with Keti to discuss diabetes May use mirlax 1-2 times per day as needed for constipation. Call the office and let us know what Iron and dosing she is taking OTC Follow up in 3 months or sooner pending test results. Example insulin titration schedule: Start taking 10 units daily of Lantus. (Long acting) Check your blood sugar every morning before eating or drinking anything (fasting blood sugar level). Adjust your insulin every 3 days as follows: If your blood sugar is above 129, INCREASE your insulin by 2 unit. If your blood sugar is 80-129, CONTINUE your current insulin dose. If your blood sugar is less than 80, DECREASE your insulin by 2 unit. Continue this method until you reach your target fasting blood sugar level consistently (80-130) documented in this encounterC[facility]03-09-2023 History of Present illness Narrative* Coco Waters APRN.CNP - 09/27/2022 9:40 AM EST This is a 56 year old female who presents today with: No chief complaint on file. HISTORY OF PRESENT ILLNESS: Leroy Tyler is a 56 year old female. No chief complaint on file. Here in the office for a 3 month follow up. DM: Reports overall feeling well. Medication side effects: No. Home sugar checks: 200's Hypoglycemic spells: No. Watching diet: Yes. Unexpected weight loss: No. Polyuria, polydipsia: No. Vision Changes: No. Foot lesions or numbness or pain: No. Taking NovoLog 44 units with meals and 10 units with snacks. Tresiba 110 units in the morning, metformin ER 500 mg, 2 tablets twice daily. Was using Trulicity 0.75 mg weekly but stopped due to cost. Was seen in endocrinology by nurse practitioner in February, needs to schedule follow up appointment. Will be meeting with clinical pharmacist soon. A1C 9.4 to 8.0. Refers that insurance only covers [id number] 6 months. Discussed seeing endocrinology out of the [facility], tried to get in with Dr. Cervantes at [facility], refers she had difficulty scheduling an appointment. Thyroid: Was taking 250 mcg of Synthroid daily, last month thyroid labs that were completed showed a low TSH. Instructed the patient to decrease Synthroid to 200 mcg daily, was not aware of changes recommended. Follows with endocrinology. HOSPITAL/ER FOLLOW UP: Reason for visit: Cough, congestion, generalized weakness Which facility: [facility] ER Date of visit: 09/21/2022 Diagnosis: Viral Illness Testing done: CBC showed signs of anemia, glucose elevated 245 Treatment given: None Current symptoms: Symptoms improved still having runny nose and cough. No SOB or difficulty breathing. History CELSA in the past, refers she takes iron OTC unsure what dose. PAST MEDICAL HISTORY: PAST MEDICAL HISTORY Diagnosis Date Anemia Hypercholesteremia Mental disorder anxiety/depression Obesity Snoring Type II or unspecified type diabetes mellitus without mention of complication, not stated as uncontrolled Unspecified hypothyroidism Vomiting blood PAST SURGICAL HISTORY Procedure Laterality Date COLONOSCOPY FLX DX W/COLLJ SPEC WHEN PFRMD 04/01/2013 Colonoscopy COLONOSCOPY FLX DX W/COLLJ SPEC WHEN PFRMD 02/24/2018 Colonoscopy - 5 yr interval DILATION & CURETTAGE DX&/THER NONOBSTETRIC 10/2012 Dilation & curettage ESOPHAGOGASTRODUODENOSCOPY TRANSORAL DIAGNOSTIC 10/30/2013 EGD ESOPHAGOGASTRODUODENOSCOPY TRANSORAL DIAGNOSTIC 02/24/2018 EGD HYSTEROSCOPY BX W/WO D&C 12/30/2012 hysteroscopy D&C w mirena insertion INSERTION OF IUD 12/30/2012 LAPAROSCOPY SURG CHOLECYSTECTOMY 1990s Cholecystectomy, lap ALLERGIES Codeine, Nitrofurantoin, Sulfa (Sulfonamide Antibiotics), Sulfamethoxazole-Trimethoprim, and Trimethoprim MEDICATIONS Current Outpatient Medications Medication Sig nitrofurantoin (FURADANTIN) 25 mg/5 mL oral liquid Bring to allergy appointment for medication challenge on 09/13/22. (Do not take at home. ) fluticasone (FLONASE) 50 mcg/actuation nasal spray Use 1-2 Sprays in each nostril once daily. NOVOLOG FLEXPEN U-100 INSULIN 100 unit/mL (3 mL) Use 44 units with full meal. Use 10 units with a snack. If exercising after meal, use 38-40 units with that meal. phenazopyridine (PYRIDIUM) 200 mg tablet Take 1 tablet by mouth three times daily as needed. FLUoxetine (PROZAC) 40 mg capsule Take 1 capsule by mouth once daily. levothyroxine (SYNTHROID) 50 mcg tablet Take 1 tablet by mouth once daily. Take on empty stomach. For Thyroid. blood sugar diagnostic test strip Use to check blood sugar three times daily. Dx: Type 2 DM - Uncontrolled E11.9 MULTIPLE INSULIN INJECTIONS hydroCHLOROthiazide (HYDRODIURIL, ESIDRIX) 12.5 mg tablet Take 1 tablet by mouth once daily. levothyroxine (SYNTHROID) 200 mcg tablet Take once daily in addition to 150 mcg for thyroid acetaminophen (TYLENOL) 325 mg tablet Take 250 mg by mouth as needed. nystatin (MYCOSTATIN) 100,000 unit/mL suspension Take 5 mL by mouth four times daily. 1tsp swish inmouth for several minutes, then swallow (or expectorate) 4 times daily until gone. nystatin-triamcinolone (MYCOLOG) ointment Apply sparingly to chest rash twice daily for irritation/infection. insulin degludec (TRESIBA FLEXTOUCH U-200) 200 unit/mL (3 mL) injection Inject 110 Units subcutaneously every morning. lisinopril 2.5 mg tablet Take 1 tablet by mouth once daily. atorvastatin (LIPITOR) 20 mg tablet Take 1 tablet by mouth once daily. metFORMIN ER (GLUCOPHAGE XR) 500 mg 24 hr tablet Take 2 tablets by mouth twice daily. pioglitazone (ACTOS) 15 mg tablet Take 1 tablet by mouth once daily. Ciclopirox (LOPROX) 8 % solution APPLY TO AFFECTED AREA DAILY AT BEDTIME. TO AFFECTED AREA. cholecalciferol, Vitamin D3, (VITAMIN D3) 1,250 mcg (50,000 unit) cap capsule Take 1 capsule by mouth one time a week. ferrous sulfate 325 mg (65 mg iron) tablet Take 1 tablet by mouth daily with breakfast. famotidine (PEPCID) 20 mg tablet Take 1 tablet by mouth twice daily. nystatin (NYSTOP) powder Apply 1 application to affected area four times daily. insulin needles, DISPOSABLE, (PEN NEEDLE) 31 gauge x 5/16 Use one needle 3-4 times daily with insulin. E11.65 Insulin: Yes albuterol HFA (VENTOLIN HFA) 90 mcg/actuation inhaler Inhale 2 Puffs as instructed every 4 hours asneeded for Wheezing/Shortness of Breath. levonorgestrel (MIRENA) 20 mcg/24 hours (5 yrs) 52 mg IUD 1 Each by INTRAUTERINE route one time only. Blood-Glucose Meter misc Use to check blood sugar three times daily. Dx: Type 2 DM - Uncontrolled E11.65 Lancets lancets Use to check blood sugar three times daily. Dx: Type 2 DM - Uncontrolled E11.65 lidocaine (XYLOCAINE) 5 % ointment Apply 1 application to affected area as needed. ALCOHOL PREP PADS padm TEST BLOOD SUGARS 3 TIMES DAILY CPAP as directed. TENS unit and electrodes cmpk No current facility-administered medications for this visit. FAMILY HISTORY Problem Relation Age of Onset Breast Cancer Mother 63 Diabetes Mother Glaucoma Mother Cancer Father Heart disease Maternal Grandfather Stroke Paternal Grandmother Social History Tobacco Use Smoking status: Former Packs/day: 0.50 Years: 10.00 Pack years: 5.00 Types: Cigarettes Quit date: 05/29/2010 Years since quittin.3 Smokeless tobacco: Never Tobacco comments: one pack per week for 2 years Vaping Use Vaping Use: Never used Substance Use Topics Alcohol use: Yes Comment: occasionally Drug use: No Comment: marijuana in the past REVIEW OF SYSTEMS GENERAL: No weight loss, malaise or fevers/chills HEENT: + Rhinorrhea NECK: Negative for lumps, goiter, pain and significant neck swelling RESPIRATORY: + Cough CARDIOVASCULAR: Negative for chest pain, leg swelling, orthopnea, or palpitations GI: No nausea, vomiting, or diarrhea/constipation. No hematochezia/melena. No heartburn or reflux symptoms. : No history of dysuria, frequency or incontinence MUSCULOSKELETAL: Negative for joint pain or swelling. SKIN: Negative for lesions, rash, and itching ENDOCRINE: Negative for cold or heat intolerance, polyuria, polydipsia and goiter NEURO: No history of headaches, syncope, paralysis, seizures or tremors MOOD: Negative for depression, anxiety, or suicidal ideation. Component Latest Ref Rng & Units 09/24/2022 Protein, Total 6.3 - 8.0 g/dL 7.8 Albumin 3.9 - 4.9 g/dL 3.6 (L) Calcium 8.5 - 10.2 mg/dL 9.4 Bilirubin, Total 0.2 - 1.3 mg/dL 0.3 Alkaline Phosphatase 34 - 123 U/L 150 (H) AST 13 - 35 U/L 23 ALT 7 - 38 U/L 19 Glucose 74 - 99 mg/dL 302 (H) BUN 7 - 21 mg/dL 13 Creatinine 0.58 - 0.96 mg/dL 0.66 Sodium 136 - 144 mmol/L 136 Potassium 3.7 - 5.1 mmol/L 4.5 Chloride 97 - 105 mmol/L 99 CO2 22 - 30 mmol/L 31 (H) Anion Gap 9 - 18 mmol/L 6 (L) eGFR >=60 mL/min/1.73m 104 Hemoglobin A1C 4.3 - 5.6 % 8.0 (H) Estimated Average Glucose mg/dL 183 TSH 0.270 - 4.200 mIU/L Free T4 0.9 - 1.7 ng/dL EXAM: BP 120/72 Pulse 78 Resp 20 Wt 110.2 kg (243 lb) LMP 09/27/2013 SpO2 98% BMI 45.91 kg/m PHYSICAL EXAM: General Appearance: Well appearing, alert, in no acute distress, well-hydrated, well nourished. Skin: Skin color, texture, turgor normal, no suspicious rashes or lesions. Head: Normocephalic, no masses, lesions, tenderness or abnormalities. Eyes: Anicteric sclera. Pupils are equally round and reactive to light. Extraocular movements are intact. Ears: External ears normal, canals clear. TMs pearly hardin Nose/Sinuses: Nares normal, septum midline, mucosa normal, no drainage or sinus tenderness. Oropharynx: Lips, mucosa, and tongue normal, teeth and gums normal, oropharynx normal. Neck: Supple, no adenopathy; thyroid symmetric, normal size, no bruits. Lungs: Lungs clear to auscultation. No wheezing, rhonchi, rales. Heart: RRR without murmur, gallop, or rubs. No ectopy. Extremities: No deformities, edema, skin discoloration, clubbing or cyanosis. Good capillary refill. Peripheral Pulses: Normal, Capillary refill <2secs, strong peripheral pulses, Pulses palpable. Neurologic: Gait normal. Sensation grossly intact. ASSESSMENT/PLAN: 1. URI, acute - ICD9: 465.9, ICD10: J06.9 (primary diagnosis) - Discussed viral etiology and rationale for treatment. - Symptomatic treatment with prn analgesia - Supportive care with fluids and rest 2. Type 2 diabetes mellitus without complication, with long-term current use of insulin (HCC) - ICD9: 250.00, V58.67, ICD10: E11.9, Z79.4 - Improving control - Continue current medications - Counseled on healthy diet and regular exercise - Keep up coming appointment with clinical pharmacy - Schedule follow-up appointment with endocrinology. 3. Hypothyroidism, unspecified type - ICD9: 244.9, ICD10: E03.9 - Instructed patient on importance of taking on an empty stomach either first thing in the morning or at bedtime. - Decrease Synthroid dose to 200 mcg - Get repeat labs in 6-8 weeks. - Follow up with endocrinology. - TSH BLD - T4 FREE/FREE THYROX 4. Iron deficiency anemia secondary to inadequate dietary iron intake - ICD9: 280.1, ICD10: D50.8 - Instructed to call the office with OTC iron and dosing she is using. - May need to increase supplement and recheck labs in a month. - CBC + DIFF - IRON + TIBC - FERRITIN BLD 5. Vitamin D deficiency - ICD9: 268.9, ICD10: E55.9 - VITAMIN D 25 HYDROXY Follow up in 3 months or sooner as needed. Discussed treatment plan and patient voices understanding. Patient's questions answered appropriately. Medications and potential side effects were discussed and patient voices understanding. Coco Waters APRN.CNP This note was partially generated using [employer] voice recognition system. Note was reviewed for accuracy. There may be minor misspellings or grammar miscues with [employer] voice recognition. documented in this encounterCleveland Clinic [facility]03-06-2023 Miscellaneous Notes* Telephone Encounter - Shea Husain Ma - 09/24/2022 12:13 PM EST Pt scheduled for OV on 09/27/22. Shea Husain Ma * Telephone Encounter - Diamante Cai LPN - 09/19/2022 6:33 PM EST TC to pt. LM to call office, ask for triage nurse to get results. Diamante Cai LPN * Telephone Encounter - Coco Waters APRN.CNP - 09/19/2022 6:29 PM EST Can you please call the patient and let her know that I would recommend that she take only the Synthroid 200 mcg daily. We can discuss this further at next office visit. Can you please ask if she is still following with endocrinology? Coco Waters APRN.CNP * Telephone Encounter - Haile Monk Ma - 09/19/2022 11:31 AM EST TC to patient - she states that per her insurance she was not able to get the rest of her labs completed until today - she will have completed prior to upcoming office visit in [facility]. Patient states that she is currently taking Synthroid 50 mcg and 200 mcg daily. * Telephone Encounter - Shea Husain Ma - 09/17/2022 9:26 AM EST Called and left message on patients voicemail to return call to the office and ask to speak with a triage nurse. Please relay information below to pt from Provider. Shea Husain Ma * Telephone Encounter - Coco Waters APRN.CNP - 09/17/2022 7:11 AM EST Can you please call the patient and let her know that I reviewed her lab results. TSH is low which can be due to being overmedicated with her Synthroid. Can you please verify the dose she is currently taking? Unfortunately the lab did not draw 2 of her labs to check on her diabetes. Please let her know thatKetty has been trying to reach out to her to get an appointment scheduled. Thank you. Coco Waters APRN.CNP documented in this encounterCleveland Clinic [facility]03-06-2023 History of Present illness Narrative* Melissa Cabrales, AMANUEL - 09/24/2022 9:38 AM EST 1. Dry eye syndrome of bilateral lacrimal glands Improved Continue gel nightly and artificial tears daily 2. Regular astigmatism of both eyes 3. Presbyopia Will hold off on prescribing glasses rx at this time Recheck in 2 months 4. Type 2 diabetes mellitus without retinopathy (HCC) Retinopathy not assessed today Patient states BS is in the 300's today Will hold off on glasses until things are better controlled Follow-up in 2 months for refraction and dry eye check Melissa Cabrales, AMANUEL September 24, 2022 9:38 AM documented in this encounterCleveland Clinic [facility]03-03-[address] Hernandez [facility] September 21, 2022 6:13pm Note Date/Time September 21, 2022 3:18 pm [facility] Medical Records Department [address] [place] [address] Emergency Department Summary 09/21/22 MR#: [id number] Acct: [id number] Name: LEROY TYLER Rep #:[id number] 3 : 1965 56 From: Hiram Hernandez DO PCP: Dr. Papa Douglass MD Status:RE G ER Location: ED HPI History of Present Illness Chief Complaint: Edema Narrative Narrative: 56-year-old female with cough, congestion, generalized weakness, dyspnea with onset 3 to 4 days ago. She states she has 1 sick contact who has a sore throat. Patient has not been tested for anything. Patient states her friend is doing fine. States that she had norovirus last week. Patient is also she has not hada fever but she does feel rundown. She does feel short of breath with exertion. She also complains that she has a 6 pound weight gain and she feels like her arms and legs are swollen. She was seen at the urgent care and referred to the ER. No history of CHF. No orthopnea. Patient states he does have a history ofdiabetes in the past. She also gets UTIs from time to time. She does not feel that she has dysuria or hematuria. She does not have abdominal pain PFSH PFSH Medical History Anemia Arthritis Back pain Bloody stool Depression Diabetes History of frequent headaches Hyperlipidemia Hypertension Hypothyroid Hypothyroidism Morbid obesity Noncompliance with medication regimen Thyroid disease Home Medications albuterol sulfate 2.5 mg/3 mL (0.083 %) solution for nebulization 2.5 mg inhalation Q4H PRN PRN Sob &/Or Wheezing 04/11/18 [History Last Taken Unknown] lisinopril 2.5 mg tablet 2.5 mg PO DAILY BP 04/11/18 [History Last Taken 10/06/19] fluoxetine 40 mg capsule 40 mg PO DAILY DEPRESSION 02/12/19 [History Last Taken 10/06/19] atorvastatin 20 mg tablet 20 mg PO QHS CHOLESTEROL 10/06/19 [History Last Taken 10/05/19] levothyroxine 200 mcg tablet 350 mcg PO DAILY THYROID 10/06/19 [History Last Taken 10/06/19] acetaminophen 325 mg tablet 650 mg PO Q6H PRN PRN Pain Score 1-10/Temp > 100.7 F010/09/19 [Rx Last Taken Unknown] insulin degludec 200 unit/mL (3 mL) subcutaneous pen 100 unit SQ DAILY dm 06/13/20 [History Last Taken Unknown] docusate sodium 100 mg capsule 100 mg PO DAILY PRN Constipation 09/07/20 [History Last Taken Unknown] metformin 500 mg tablet,extended release 24 hr 1,000 mg PO DAILY dm 03/29/21 [History Last Taken Unknown] insulin lispro 100 unit/mL subcutaneous pen 46 unit SC TIDAC dm 07/21/21 [History Last Taken Unknown] cefdinir 300 mg capsule 300 mg PO BID #10 caps 02/11/22 [Rx Last Taken Unknown] clindamycin HCl 300 mg capsule (Cleocin HCl) 300 mg PO Q6H #40 CAPSULES 06/08/22[Rx Last Taken Unknown] hydrocodone-acetaminophen 5-325mg 5mg-325mg 1 tab PO Q4H PRN PRN Pain 2 days #15TABLETS 06/08/22 [Rx Last Taken Unknown] ondansetron 4 mg disintegrating tablet 4 mg PO Q8H PRN nausea and vomiting #10 tabs 08/12/22 [Rx Last Taken Unknown] Allergy/AdvReac Type Severity Reaction Status Date / Time codeine Allergy Angioedema Verified 09/21/22 14:18 nitrofurantoin Allergy edema Verified 09/21/22 14:18 Penicillins Allergy Rash Verified 09/21/22 14:18 Sulfa (Sulfonamide Allergy Rash Verified 09/21/22 14:18 Antibiotics) sulfamethoxazole [Bactrim] Allergy Unknown Verified 09/21/22 14:18 trimethoprim [Bactrim] Allergy Unknown Verified 09/21/22 14:18 Family History Other Cancer Surgical History Hx of cholecystectomy Social History household members: none Smoking Status: Former smoker alcohol intake: current details: Patient states she does not drink however nurse documents and prior note do substance use type: does not use ROS ROS ED Constitutional Constitutional ED: Reports other Details: 5 pound weight gain ; Denies chills or subjective Eyes Eyes: Denies blurry vision or change in vision Cardiovascular Cardiovascular: Denies palpitations or racing heartbeat Respiratory/Chest Respiratory/Chest: Reports cough and dyspnea; Denies sputum Gastrointestinal Gastrointestinal: Denies abdominal pain, nausea or vomiting Genitourinary Genitourinary ED: Denies dysuria or hematuria Musculoskeletal Musculoskeletal: Denies arthralgias or back pain EXAM Physical Exam Const Vital Signs: 09/21/22 14:10 09/21/22 14:18 09/21/22 14:19 Temperature 97.4 F L Temperature Source Temporal Pulse Rate 72 71 Respiratory Rate 18 23 H Respiratory Effort Normal Short of Breath Respiratory Depth Respiratory Pattern Normal Blood Pressure 145/79 H 144/68 H Blood Pressure Mean 101 93 Pulse Ox 99 97 Oxygen Delivery Method Room Air Room Air 09/21/22 14:19 09/21/22 15:22 09/21/22 16:04 Temperature Temperature Source Pulse Rate 67 Respiratory Rate 18 Respiratory Effort Short of Breath Labored Respiratory Depth Shallow Respiratory Pattern Blood Pressure 116/71 Blood Pressure Mean 86 Pulse Ox 97 95 Oxygen Delivery Method Room Air Room Air Room Air 09/21/22 17:52 Temperature Temperature Source Pulse Rate 67 Respiratory Rate 21 H Respiratory Effort Respiratory Depth Respiratory Pattern Blood Pressure 121/73 H Blood Pressure Mean 89 Pulse Ox 94 Oxygen Delivery Method Room Air Positive well nourished General Appearance ED: NAD; Negative for pallor HEENT Reports normocephalic, head/scalp atraumatic and moist mucous membranes Eyes PERRL and EOMs intact bilaterally Resp normal respiratory effort and clear to auscultation bilaterally Auscultation: Negative for rales, rhonchi or wheezes Cardio regular rate and regular rhythm Narrative: Deferred Extremity normal to inspection General Extremety ED: Negative for edema or tenderness General Extremity: Negative for edema Neuro oriented x3 and CN's II-XII intact bilaterally Sensorium / Orientation: alert Motor Exam: strength 5/5 throughout Psych mental status grossly normal Attitude: No agitated Skin no rashes or lesions noted and no wounds General Skin Exam: Negative for jaundice or pallor MDM MDM MDM Narrative Medical decision making narrative: Patient presenting with shortness of breath, generalized fatigue she reports he has 1 sick contact and had norovirus last week. Her vital signs are stable and she is afebrile. She is nontoxic-appearing. She was sent by the urgent care because she is stating she has lower extremity edema and shortness of breath and I believe they were concerned for CHF. She does not have history of this. She not having chest pain. She does state that she is a little short of breath. She has not had a fever but does feel rundown like she has some kind of viral illness. She also has concerned she could have a UTI. She also has a history of diabetes and hyperglycemia differential diagnosis at this point CHF, pneumonia, hyperglycemia, bronchitis, UTI, viral etiology. CBC for white blood cell count, hemoglobin, differential. BMP for renal function, electrolytes, glucose, anion gap. BNP and high-sensitivity troponin to assess for cardiac standpoint. EKG will be obtained as well as a chest x-ray due to dyspnea. Urinalysis to assess for UTI. EKG on my interpretation shows a normal sinus rhythm with a ventricular rate of 65 bpm with bifascicular block. [place] interval 126 ms, QRS duration 120 ms, QTc 460 ms. Chest x-ray on my interpretation shows no acute process. Radiology interpretation agrees. CBC shows normal white blood cell count 8.1. Hemoglobin 10.8 which is slightly lower than her previous from last year. Platelets are normal. Renal function is normal. And although her hemoglobin is slightly lower than last year her BUN is not elevated to suggest GI bleed. Glucose is elevated at 245 without anion gap. High-sensitivity troponin is 52. BNP 41.3 and therefore normal. Patient did have a delay in care today because it took her a very long time to give a urine sample but ultimately this appears to be normal and is quite contaminated. She is not having urinary symptoms so I do feel she is stable for discharge home. More than likely this is something viral. She was counseled that her glucose is a little bit elevated today. She was also counseled on her anemia and recommended follow-up with her PCP. Impression: 1. Generalized weakness 2. Dyspnea on exertion 3. Anemia Lab Data Attestation: I reviewed the patient's lab results. Labs: Laboratory Results - last 24 hr 09/21/22 09/21/22 09/21/22 14:36 15:35 15:35 WBC 8.1 RBC 4.40 Hgb 10.8 L Hct 35.6 L MCV 80.9 L MCH 24.5 L MCHC 30.3 L RDW Std Deviation 42.4 RDW Coeff of [place] 14.6 Plt Count 235 MPV 9.8 Immature Gran % (Auto) 1.600 H Neut % (Auto) 58.1 Lymph % (Auto) 31.8 [place] % (Auto) 5.2 Eos % (Auto) 2.7 Baso % (Auto) 0.6 Absolute Neuts (auto) 4.7 Absolute Lymphs (auto) 2.57 Nucleated RBC % 0 Sodium 138 Potassium 4.0 Chloride 101 Carbon Dioxide 32.0 Anion Gap 5 BUN 14 Creatinine 0.67 Estim Creat Clear Calc 71.59 Est GFR (MDRD) Af Amer 118 Est GFR (MDRD) Non-Af 97 BUN/Creatinine Ratio 21.0 H Glucose 245 H Calcium 8.8 Troponin I High Sens 52 B-Natriuretic Peptide Urine Color Urine Clarity Urine pH Ur Specific [place] Urine Protein Urine Glucose (UA) Urine Ketones Urine Occult Blood Urine Nitrite Urine Bilirubin Urine Urobilinogen Ur Leukocyte Esterase Urine RBC Urine WBC Ur Squamous Epith Cells Urine Bacteria Urine Mucus POC Glucose 235 H 09/21/22 09/21/22 15:35 16:37 WBC RBC Hgb Hct MCV MCH MCHC RDW Std Deviation RDW Coeff of [place] Plt Count MPV Immature Gran % (Auto) Neut % (Auto) Lymph % (Auto) [place] % (Auto) Eos % (Auto) Baso % (Auto) Absolute Neuts (auto) Absolute Lymphs (auto) Nucleated RBC % Sodium Potassium Chloride Carbon Dioxide Anion Gap BUN Creatinine Estim Creat Clear Calc Est GFR (MDRD) Af Amer Est GFR (MDRD) Non-Af BUN/Creatinine Ratio Glucose Calcium Troponin I High Sens B-Natriuretic Peptide 41.3 Urine Color Yellow Urine Clarity Cloudy Urine pH 5.0 Ur Specific [place] 1.020 Urine Protein 30 H Urine Glucose (UA) Normal Urine Ketones Negative Urine Occult Blood 250 H Urine Nitrite Negative Urine Bilirubin Negative Urine Urobilinogen Normal Ur Leukocyte Esterase 500 H Urine RBC 5-10 SEEN Urine WBC 25-50 SEEN Ur Squamous Epith Cells 10-25 SEEN Urine Bacteria 0 SEEN Urine Mucus 1+ POC Glucose Radiography Diagnostic Testing: Clinical Impression(s) from Imaging Studies Chest X-Ray 09/21/22 15:50 IMPRESSION: Stable interstitial scarring with trace bibasilar airspace disease which may represent minimal atelectasis. There is no focal consolidation or effusion. Electronically Signed: Dameon Lopez MD at 16:49 EST , Discharge Plan Triage Chief Complaint: Edema Other Complaint: Shortness of Breath ED Provider: Hiram Hernandez Dx/Rx/DC Orders Instructions: ED Dyspnea, ED Viral Syndrome (Adult), ED Weakness (Uncertain Cause), ED Anemia, Unspecified (Child) Prescriptions: No Action albuterol sulfate 2.5 mg /3 mL (0.083 %) solution for nebulization 2.5 mg INHALATION Q4H PRN PRN (Reason: Sob &/Or Wheezing) lisinopril 2.5 mg tablet 2.5 mg PO DAILY fluoxetine 40 MG capsule 40 mg PO DAILY Label Comments: TAKE 1 CAPSULE BY MOUTH EVERY DAY atorvastatin 20 MG tablet 20 mg PO QHS levothyroxine 200 MCG tablet 350 mcg PO DAILY acetaminophen 325 MG tablet 650 mg PO Q6H PRN PRN (Reason: Pain Score 1-10/Temp > 100.7 F) 0RF insulin degludec 200 UNIT/ML insulin pen 100 unit SQ DAILY Label Comments: INJECT 110 UNITS SUBCUTANEOUSLY EVERY MORNING. docusate sodium 100 MG capsule 100 mg PO DAILY PRN (Reason: Constipation) metformin 500 mg tablet extended release 24 hr 1,000 mg PO DAILY Label Comments: TAKE 2 TABLETS BY MOUTH TWICE A DAY insulin lispro 100 UNIT/ML insulin pen 46 unit SC TIDAC Protocol: 5. Sliding Scale Insulin High Dosing Condition: 150-209 mg/dl = 3 units Condition: 210-259 mg/dl = 6 units Condition: 260-324 mg/dl = 9 units Condition: 325-374 mg/dl = 12 units Condition: 375-409 mg/dl = 14 units Condition: 410-449 mg/dl = 16 units Condition: Greater than 449 call physician Protocol Text: - Use for Total Daily Dose of Insulin 81-120 units - Very insulin resistant or septic patients HIGH DOSING ALGORITHM Rx Instructions: 46 base plus sliding scale cefdinir 300 mg capsule 300 mg PO BID Qty: 10 0RF clindamycin HCl [Cleocin HCl] 300 mg capsule 300 mg PO Q6H Qty: 40 0RF hydrocodone-acetaminophen [hydrocodone-acetaminophen] 5-325 mg tablet 1 tab PO Q4H PRN PRN (Reason: Pain) 2 Days Qty: 15 0RF ondansetron 4 mg tablet,disintegrating 4 mg PO Q8H PRN (Reason: nausea and vomiting) Qty: 10 0RF Primary Care Provider: Papa Douglass Referrals: Papa Douglass MD [Primary Care Provider] - Disposition Disposition: Home, Self Care What to do if you have Problems For any increased pain, shortness of breath, bleeding, nausea or vomiting, chestpain, or any unexpected problems, contact your Primary Care Provider. Call [facility] ([phone]) or report to the closest Emergency Room. Call 911 if necessary. 09/21/221812 <Electronically signed by Hiram Hernandez DO> Cosigner Signature (if applicable): CC: Dr. Papa Douglass MD ~ Signed [facility] Work Phone: [phone]) 846-409703-03-2023 History of Present illness Narrative* Sabine Borrego APRN.DRILL HAND - 09/21/2022 1:57 PM EST Patient came in with complaints of headache congestion swelling of bilateral feet and hands. Patient says she has noticed she is more short of breath when she tries to do anything. Patient says over the last 4 days the feet have become significantly swollen and are very painful to walk on. Patient does have uncontrolled diabetes. At this time due to the bilateral leg swelling patient is being sent to the emergency room for full evaluation patient was okay with this care plan. documented [facility] Miscellaneous Notes* Telephone Encounter - Bia Block RN - 09/04/2022 1:09 PM EST Pharmacy has in stock. Left pt VM to make aware to molded goods spot picker before appointment and not to take at home. * Telephone Encounter - Dionne Turner MD - 09/04/2022 11:48 AM EST [facility] allergy nurses: Please call patient's pharmacy to make sure that they will be able to provide nitrofurantoin oral liquid 25 mg/5 ml as prescribed for med challenge on 09/13 The following approved medication requests have been transmitted electronically. Requested Prescriptions Signed Prescriptions Disp Refills nitrofurantoin (FURADANTIN) 25 mg/5 mL oral liquid 25 mL 0 Sig: Bring to allergy appointment for medication challenge on 09/13/22. (Do not take at home. ) Authorizing Provider: DIONNE TURNER MD * Telephone Encounter - Angelina Romero - 09/04/2022 11:21 AM EST Patient was already scheduled for 09/13/22. [facility] prefers [facility] [place] * Telephone Encounter - Dionne Turner MD - 09/04/2022 10:32 AM EST Please contact patient to schedule a graded challenge to nitrofurantoin. Try to schedule for 8 or 9on 09/13. 8:30 on Monday 09/11 is another option. Confirm preferred pharmacy with patient. Give patient's instructions on antihistamine avoidance. Instruct her to molded goods spot picker the prescription to bring to her appointment. Please let me know when this is scheduled. Dionne Turner MD * Telephone Encounter - Bia Block RN - 09/04/2022 9:19 AM EST Medical records release was faxed yesterday, have not received records yet, Please advise if patient needs nirtofurantin prescription. * Telephone Encounter - Erin Graham - 09/04/2022 8:55 AM EST Patient calling inquiring if she needs to molded goods spot picker something at the pharmacy and bring with her to her appointment with Dr. Turner on 09/13 for testing. Please advise and call patient on her cell [phone]. Thank you documented in [facility] encounterC[facility] Miscellaneous Notes* Telephone Encounter - Natalya Osman RN - 09/04/2022 8:34 AM EST Patient notified. No longer having difficulty emptying her bladder. Dysuria is also improving. Phone number for Dr. Turner's office provided to patient. Natalya Osman RN * Telephone Encounter - Mela Garcia APRN.CNP - 09/03/2022 9:00 PM EST Please notify pt - Second urine culture was positive for same e coli bacteria. Please obtain clinical update since receiving gentamycin and now taking doxycycline. She needs to schedule appointment with Dr Turner for graded medication challenge to nitrofurantoin. Mela Garcia APRN.CNP documented in this encounterC[facility]23 Miscellaneous Notes* Telephone Encounter - Dolores Badillo RN - 08/31/2022 11:52 AM EST Patient notified. She is scheduled at infusion center today at 2pm. Dolores Badillo RN * Telephone Encounter - Zee Palacios LPN - 08/31/2022 11:15 AM EST Left message to call office * Telephone Encounter - Mela Garcia APRN.CNP - 08/31/2022 10:27 AM EST Doxycycline also ordered to be started tomorrow. Please notify pt. Mela Garcia APRN.CNP * Telephone Encounter - Dolores Badillo RN - 08/31/2022 9:45 AM EST Patient notified. Orders faxed to [facility] infusion center. Please file urine culture order. Dolores Badillo RN * Telephone Encounter - Zee Palacios LPN - 08/31/2022 8:39 AM EST Left message to call office. Patient needs to leave urine sample at lab for urine culture. Per provider due to antibiotic allergies, patient will need Gentamycin 500 mg IV administered. [facility] outpatient infusion center is able to administer te antibiotic today, and will contact patient to set up the a ppointment. Urine culture will need to be collected before receiving antibiotic. documented in this encounterC[facility]23 Instructions* Patient Instructions* Dionne Turner MD - 08/30/2022 3:33 PM EST Allergy skin tests to environmental allergies were negative. Use fluticasone nasal spray/generic Flonase 1 to 2 sprays each nostril once daily on a regular basis Allergy skin tests completed to penicillin were negative. You took a dose of amoxicillin and tolerated this without adverse reaction. You are at low risk for a severe, immediate allergic or anaphylactic reaction to penicillin and other penicillin type antibiotics. Skin tests and oral challenge are unreliable for predicting delayed reactions. documented in this encounterC[facility] History of Present illness Narrative* Dionne Turner MD - 08/30/2022 2:01 PM EST This is a consultation requested by Mela Garcia APRN, CNP for an allergy and immunology evaluation. My final recommendations will be communicated back to the requesting healthcare provider(s) by wayof shared medical record or via [place] mail. Leroy Tyler is a 56 year old female with a history of recurrent urinary tract infections who presents with a history of adverse reaction to multiple antibiotics. Over 20 years ago, she developed a generalized pruritic rash 3 to 4 days into a course of treatmentwith penicillin. She does not recall why she was taking the penicillin. Denies angioedema, respiratory distress, lightheadedness, loss of consciousness, bullous lesions, mucous membrane involvement, exfoliation, target lesions, joint pain/swelling and fevers. Denies subsequent use of penicillin antibiotics. She has subsequently taken cephalosporins including cephalexin and cefdinir and tolerated these medications without adverse reaction. In 2015, she developed a blistering rash on her hands associated with use of Bactrim. She reports that it looked like she had been burned. In May,, 1 to 2 days into a course of nitrofurantoin, she awoke in the morning with swelling of her hands and feet. She also complained of a sensation of throat swelling and voice changes. She presented to the emergency room for treatment. She has a 1 year history of nasal congestion and sneezing. Also with intermittent facial pressure. There are no clear triggers to the symptoms. Uses Flonase as needed with relief. No prior allergy testing or allergy immunotherapy. She has used albuterol for chest congestion associated with acute respiratory illnesses. History of obstructive sleep apnea on CPAP. She has previously taken Pepcid for abdominal pain REVIEW OF SYSTEMS: SINUSITIS: The patient does not suffer from frequent sinopulmonary infections. ASTHMA: See SAXMAN ECZEMA: The patient has no history of eczema. URTICARIA:The patient does not have a history of urticaria and/or angioedema. GERD: See SAXMAN INSECT STING: The patient does not have a history of systemic reaction to insect sting. FOOD ALLERGY:The patient denies history of food allergy. LATEX: The patient does not have a history of adverse reaction to latex. All other review of systems negative except for those listed above. PAST MEDICAL HISTORY Diagnosis Date Anemia Hypercholesteremia Mental disorder anxiety/depression Obesity Snoring Type II or unspecified type diabetes mellitus without mention of complication, not stated as uncontrolled Unspecified hypothyroidism Vomiting blood MEDICATIONS: NOVOLOG FLEXPEN U-100 INSULIN 100 unit/mL (3 mL) Use 44 units with full meal. Use 10 units with a snack. If exercising after meal, use 38-40 units with that meal. phenazopyridine (PYRIDIUM) 200 mg tablet Take 1 tablet by mouth three times daily as needed. fluticasone (FLONASE) 50 mcg/actuation nasal spray USE 2 SPRAYS IN EACH NOSTRIL ONCE DAILY. RINSE MOUTH AFTER USE. (Patient taking differently: Use 2 Sprays in each nostril as needed. Rinse mouth after use.) FLUoxetine (PROZAC) 40 mg capsule Take 1 capsule by mouth once daily. levothyroxine (SYNTHROID) 50 mcg tablet Take 1 tablet by mouth once daily. Take on empty stomach. For Thyroid. blood sugar diagnostic test strip Use to check blood sugar three times daily. Dx: Type 2 DM - Uncontrolled E11.9 MULTIPLE INSULIN INJECTIONS hydroCHLOROthiazide (HYDRODIURIL, ESIDRIX) 12.5 mg tablet Take 1 tablet by mouth once daily. acetaminophen (TYLENOL) 325 mg tablet Take 250 mg by mouth as needed. nystatin (MYCOSTATIN) 100,000 unit/mL suspension Take 5 mL by mouth four times daily. 1tsp swish inmouth for several minutes, then swallow (or expectorate) 4 times daily until gone. nystatin-triamcinolone (MYCOLOG) ointment Apply sparingly to chest rash twice daily for irritation/infection. insulin degludec (TRESIBA FLEXTOUCH U-200) 200 unit/mL (3 mL) injection Inject 110 Units subcutaneously every morning. lisinopril 2.5 mg tablet Take 1 tablet by mouth once daily. atorvastatin (LIPITOR) 20 mg tablet Take 1 tablet by mouth once daily. metFORMIN ER (GLUCOPHAGE XR) 500 mg 24 hr tablet Take 2 tablets by mouth twice daily. pioglitazone (ACTOS) 15 mg tablet Take 1 tablet by mouth once daily. cholecalciferol, Vitamin D3, (VITAMIN D3) 1,250 mcg (50,000 unit) cap capsule Take 1 capsule by mouth one time a week. ferrous sulfate 325 mg (65 mg iron) tablet Take 1 tablet by mouth daily with breakfast. nystatin (NYSTOP) powder Apply 1 application to affected area four times daily. insulin needles, DISPOSABLE, (PEN NEEDLE) 31 gauge x 5/16 Use one needle 3-4 times daily with insulin. E11.65 Insulin: Yes albuterol HFA (VENTOLIN HFA) 90 mcg/actuation inhaler Inhale 2 Puffs as instructed every 4 hours asneeded for Wheezing/Shortness of Breath. levonorgestrel (MIRENA) 20 mcg/24 hours (5 yrs) 52 mg IUD 1 Each by INTRAUTERINE route one time only. Blood-Glucose Meter misc Use to check blood sugar three times daily. Dx: Type 2 DM - Uncontrolled E11.65 Lancets lancets Use to check blood sugar three times daily. Dx: Type 2 DM - Uncontrolled E11.65 lidocaine (XYLOCAINE) 5 % ointment Apply 1 application to affected area as needed. ALCOHOL PREP PADS padm TEST BLOOD SUGARS 3 TIMES DAILY CPAP as directed. TENS unit and electrodes cmpk levothyroxine (SYNTHROID) 200 mcg tablet Take once daily in addition to 150 mcg for thyroid Ciclopirox (LOPROX) 8 % solution APPLY TO AFFECTED AREA DAILY AT BEDTIME. TO AFFECTED AREA. (Patient not taking: No sig reported) famotidine (PEPCID) 20 mg tablet Take 1 tablet by mouth twice daily. (Patient not taking: Reported on 08/30/2022) ALLERGIES: Allergies As of Date: 08/30/2022 Allergen Noted Reaction CODEINE 08/01/2012 Swelling NITROFURANTOIN 06/14/2021 Swelling PENICILLINS 04/27/2010 Rash SULFA (SULFONAMIDE ANTIBIOTICS) 02/09/2022 Rash and Unknown SULFAMETHOXAZOLE-TRIMETHOPRIM 09/08/2015 Rash TRIMETHOPRIM 02/09/2022 Unknown Fully Assessed 08/30/2022 PAST SURGICAL HISTORY Procedure Laterality Date COLONOSCOPY FLX DX W/COLLJ SPEC WHEN PFRMD 04/01/2013 Colonoscopy COLONOSCOPY FLX DX W/COLLJ SPEC WHEN PFRMD 02/24/2018 Colonoscopy - 5 yr interval DILATION & CURETTAGE DX&/THER NONOBSTETRIC 10/2012 Dilation & curettage ESOPHAGOGASTRODUODENOSCOPY TRANSORAL DIAGNOSTIC 10/30/2013 EGD ESOPHAGOGASTRODUODENOSCOPY TRANSORAL DIAGNOSTIC 02/24/2018 EGD HYSTEROSCOPY BX W/WO D&C 12/30/2012 hysteroscopy D&C w mirena insertion INSERTION OF IUD 12/30/2012 LAPAROSCOPY SURG CHOLECYSTECTOMY 1990s Cholecystectomy, lap FAMILY HISTORY: Allergic rhinitis:no. Asthma: no. Eczema: no. Cystic fibrosis: no. Immunodeficiency: no. 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 Pets in the home: There are no pets in the home Outdoor animals: There are no outdoor animals Tobacco smoke: Exposure in the home. Physical Exam: GENERAL APPEARANCE:Well appearing, alert, in no acute distress, well-hydrated, well nourished. Obese HEENT: NCAT. EYES: conjunctiva and sclera normal. EARS: External ears normal. Canals clear. TM's normal. NOSE/SINUS: mild edema of the nasal mucosa with scant clear secretions bilaterally THROAT: no erythema NECK:neck supple, no adenopathy HEART:RRR with normal S1 and S2 ,no murmurs, no gallops, no rubs LUNGS: clear to auscultation bilaterally, no wheezes, rales or rhonchi ABDOMEN:soft, nontender, nondistended, without organomegaly or palpable masses EXTREMITIES:Extremities normal, No deformities, No skin discoloration, and No edema SKIN: Skin color, texture, turgor normal. No rashes or lesions. ALLERGY SKIN TESTS: Negative to inhalant allergens. Negative to penicillin and Pre-Pen on both prick and intradermal tests. Patient took a test dose ofamoxicillin 250 mg by mouth and was monitored in the office for 45 minutes afterwards. About 25 minutes after taking the oral amoxicillin, she complained that her heart was racing. Vital signs including heart rate were obtained and were normal. Physical exam was normal. She was monitored for an additional 20 minutes without developing any additional symptoms. Other than the subjective complaint of temporary increase in heart rate, the patient tolerated the amoxicillin without adverse reaction. ASSESSMENT/PLAN: 1.) History of allergies to multiple antibiotics: Allergy skin tests to penicillin were negative. The patient took a test dose of amoxicillin and tolerated this without significant adverse reaction. The patient is at low risk for a severe, immediate, IgE-mediated reaction to penicillin, amoxicillin and other penicillin-type antibiotics. Skin testsare unreliable for predicting delayed reactions. Patient currently has a urinary tract infection caused by multidrug-resistant E. coli. The bacteriais susceptible to ertepenem, meropenem, gentamicin, tobramycin, Bactrim and nitrofurantoin. Discussed with Mela Garcia APRN, CNP in [facility]. She will likely treat the patient's current infection with intramuscular gentamicin. Standardized in vivo or in vitro tests are not available to diagnose IgE- mediated allergy to sulfa antimicrobials or nitrofurantoin. History of blistering lesions associated with use of Bactrim raises concern for severe delayed cutaneous reaction such as Nina-Mick syndrome. Recommend that she continue to avoid use of sulfa antimicrobials. Emergency room records from June 14, 2021 regarding her adverse reaction to nitrofurantoin has been requested for review. Patient will return for the completion of a graded in-office challenge to nitrofurantoin. Instructions provided on antihistamine avoidance prior to visit. 2.) Nonallergic Rhinitis Commend regular use of fluticasone nasal spray 1 to 2 sprays each nostril once daily 2.) Discussed medication dosage, usage, side effects, and goals of treatment in detail. 3.) Patient will be contacted to schedule a graded medication challenge to nitrofurantoin (patient prefers , Tuesdays will sometimes work)- patient will return sooner should new symptoms or problems arise. Dionne Turner MD documented in this encounterC[facility] Nurse Note* Randi Recio RN - 08/30/2022 1:57 PM EST Patient here for consult regarding antibiotic allergy. Broke out in hives head to toe as an adult. Feels that she took a couple days. Has some sneezing and nasal congestion, suffers year round. Uses flonase as needed. documented in this encounterC[facility]01-30-2023 Miscellaneous Notes* Telephone Encounter - Coco Waters APRN.ALEXEI - 08/20/2022 11:34 AM EST The following approved medication requests have been transmitted electronically. Requested Prescriptions Pending Prescriptions Disp Refills NOVOLOG FLEXPEN U-100 INSULIN 100 unit/mL (3 mL) 7 Each 5 Sig: Use 44 units with full meal. Use 10 units with a snack. If exercising after meal, use 38-40 units with that meal. Coco Waters APRN.ALEXEI * Telephone Encounter - Natalya Will Pss - 08/20/2022 9:40 AM EST Pharmacy verified in [facility] Patient has been identified by name and date of : Yes Patient aware RX will be sent to pharmacy. No need to notify patient. Patient phones for refill(s): Requested Prescriptions Pending Prescriptions Disp Refills NOVOLOG FLEXPEN U-100 INSULIN 100 unit/mL (3 mL) 7 Each 5 Sig: Use 44 units with full meal. Use 10 units with a snack. If exercising after meal, use 38-40 units with that meal. Date of last office visit : 07/18/2022 Labs-06/21/22 Date of next office visit : 09/19/2022 Last 2 Encounter Wt Readings: Date: Wt: 08/07/2022 110.9 kg (244 lb 9.6 oz) 07/18/2022 112.9 kg (249 lb) Please advise. Natalya Will Pss documented in this encounterC[facility]01-27-2023 Miscellaneous Notes* Telephone Encounter - Sue Garcia - 08/17/2022 9:01 AM EST Called PT LVM to call back and schedule consult to Allergy/Immunology. Sue TADEO * Telephone Encounter - Beth Evans LPN - 08/16/2022 1:01 PM EST PSS please assist pt with scheduling appt with Allergy/Immunology KEYANNA. Multiple allergies to antibiotics need to see if they are true allergies. Beth Evans LPN * Telephone Encounter - Beth Evans LPN - 08/16/2022 10:35 AM EST Pt returned call and reports that she has some issues with bladder spasms, fatigue,some dysuria. Ptstated that she has never been seen by an security dispatcher in the past. Please see pended order once signed we can assist pt in getting scheduled. Beth Evans LPN * Telephone Encounter - Dolores Badillo RN - 08/15/2022 4:38 PM EST Left message for patient to call office. Dolores Badillo RN * Telephone Encounter - Natalya Osman RN - 08/14/2022 8:43 AM EST Attempted to notify patient. Call went straight to voicemail. Unable to leave a message. [facility] Natalya Osman RN * Telephone Encounter - Mela Garcia APRN.CNP - 08/14/2022 7:42 AM EST Please call patient and obtain clinical update on her UTI symptoms. Urine culture results show E. coli which is resistant to many antibiotics. She has listed allergies to the antibiotics that are effective for this bacteria. She will need to see an security dispatcher to determine if her allergies are true allergies so that she can be treated appropriately in the future. A consult order has been pended. Mela Garcia APRN.ALEXEI documented in this encounterCleveland [facility]01-17-2023 Instructions* Patient Instructions* Mela Garcia APRN.CNP - 08/07/2022 7:25 AM EST URINARY TRACT INFECTIONS The urinary tract makes and stores urine, one of the body s liquid waste products. The urinary tract includes the following parts: Kidneys, which produce urine by removing waste and water from the blood Ureters, the tubes that carry urine from the kidneys to the bladder Bladder, the sac-like container for storing urine Urethra, the tube that carries urine from the bladder out of the body What is a urinary tract infection? Normal urine contains no bacteria (germs). Sometimes, however, bacteria from outside the body get into the urinary tract, and cause infection and inflammation. This is a urinary tract infection, which can involve the urethra (a condition called urethritis), kidneys (a condition called pyelonephritis) or bladder, (a condition called cystitis). Cystitis is the most common type of urinary tract infection. What are the symptoms of a urinary tract infection? A urinary tract infection causes the lining of the urinary tract to become red and irritated, producing the following symptoms: Pain in the flank (side of the body), abdomen, or pelvic area Pressure in the lower pelvis Frequent need to urinate (frequency) Painful urination (dysuria) Urgent need to urinate (urgency) Incontinence (urine leakage) The need to urinate at night Abnormal urine color (cloudy urine) Blood in the urine Strong or foul-smelling urine Other symptoms that might be associated with a urinary tract infection include: Pain during sex Penis pain Fatigue Fever (temperature above 100oF) Chills Vomiting Mental changes or confusion What causes a urinary tract infection? Urinary tract infections are caused by microorganisms--usually bacteria--that enter the urethra andbladder, causing inflammation and infection. The bacteria also might travel up the ureters and infect the kidneys. More than 90 percent of cystitis cases are caused by E. coli, bacteria normally found in the intestines. Other organisms--including chlamydia and mycoplasma--also cause urinary tract infections. Infections by these organisms usually are limited to the urethra and reproductive organs. Chlamydia and m ycoplasma infections might be sexually transmitted, in which case both partners must be treated. How common are urinary tract infections? Urinary tract infections are very common, occurring in two out of every 100 people. One percent to 2 percent of children develop urinary tract infections. Each year, 8 million to 10 million visits todoctors are for urinary tract infections. Who gets urinary tract infections? Anyone can get a urinary tract infection, but they are more common in women. This is because the urethra in females is shorter and closer to the anus, where E. coli bacteria are common. Older adults also are at higher risk for developing cystitis. This increased risk might be due to incomplete emptying of the bladder related to various medical conditions, including an enlarged prostate or a narrowing of the urethra. If you get frequent urinary tract infections, your doctor might do tests to check for other health problems--such as diabetes or an abnormal urinary system--that might be contributing to your infections. How are urinary tract infections diagnosed? Your doctor will use the following tests to diagnose a urinary tract infection: Urinalysis to examine the urine for red blood cells, white blood cells, and bacteria (The number ofwhite and red blood cells can indicate an infection.) Urine culture to determine the type of bacteria in the urine, which is important for determining the appropriate treatment If your infection does not respond to treatment or if you get repeated infections, your doctor might use the following tests to examine your urinary tract for disease or injury: Intravenous pyelogram (IVP), a series of X-rays of the bladder, kidneys, and ureters after a special dye is injected (The dye helps the structures to show up better on the X-ray.) Ultrasound, a test that uses sound waves to form images of internal organs Cystoscopy, a test that uses a special instrument fitted with a lens and a light source (cystoscope) to see inside the bladder from the urethra How are urinary tract infections treated? Antibiotics, medicines that kill the bacteria, are used to treat urinary tract infections. Your doctor will choose a drug that best treats the bacteria causing your infection. Commonly used antibiotics include: Nitrofurantoin Sulfonamides (sulfa drugs) Amoxicillin Cephalosporins Trimethoprim/sulfamethoxazole Doxycycline Quinolones It is very important that you follow your doctor s directions for taking the medicine. Do not stop taking the antibiotic because your symptoms go away and you start feeling better. If the infection is not treated completely, with the full course of antibiotics, it can return. What are the complications of a urinary tract infection? A urinary tract infection that is not treated can lead to recurrent infections and a more serious infection of the kidneys. Can urinary tract infections be prevented? There are some steps you can take to reduce your risk of developing a urinary tract infection: Good hygiene of the genital area--especially in women--might help reduce the chances of introducingbacteria into the urethra. After a bowel movement, the genitals should be wiped from front to back to reduce the chance of dragging E. coli bacteria from the rectal area to the urethra. Urinating frequently, which flushes bacteria out of the bladder, might reduce the risk of cystitis in those who are prone to urinary tract infections. Drinking plenty of fluids encourages frequent urination. Avoid fluids that irritate the bladder, such as alcohol, citrus juices, and drinks containing caffeine. Urinating immediately after sex might help flush out bacteria that might have been introduced during intercourse. Practicing safe sex (using a condom) can reduce the risk of a sexually transmitted infection. What is the outlook for a person with a urinary tract infection? While urinary tract infections might be uncomfortable, they generally respond well to treatment. When should I call my health care provider? Call your health care provider if you have symptoms of a urinary tract infection. Also call if you have been diagnosed with an infection and your symptoms get worse or you develop new symptoms, especially fever, back pain, and vomiting. Copyright [id number] The [facility]. All rights reserved This information is provided by the [facility] and is not intended to replace the medical advice of your doctor or health care provider. Please consult your health care provider for advice about a specific medical condition. For additional written health information, please contact the [facility] at the [facility] or toll-free extension [phone]. This document was last reviewed on: 2001 index#[id number] documented in this encounterCleveland [facility]01-17-2023 History of Present illness Narrative* Mela Garcia APRN.ALEXEI - 08/07/2022 6:58 AM EST Leroy Tyler is a 56 year old female who presents for problem visit UTI symptoms for 2-3 weeks. HPI: UTI symptoms x 2-3 weeks - bladder spasms, burning with urination, frequency with voiding in small amounts, blood flecks in urine. No fever or chills. 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 T2DM - FBS 200 this am. Was taking clindamycin 1-2 months ago for tooth infection. No vaginal itching or discharge. 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 PAST MEDICAL HISTORY Diagnosis Date Anemia Hypercholesteremia Mental disorder anxiety/depression Obesity Snoring Type II or unspecified type diabetes mellitus without mention of complication, not stated as uncontrolled Unspecified hypothyroidism Vomiting blood PAST SURGICAL HISTORY Procedure Laterality Date COLONOSCOPY FLX DX W/COLLJ SPEC WHEN PFRMD 04/01/2013 Colonoscopy COLONOSCOPY FLX DX W/COLLJ SPEC WHEN PFRMD 02/24/2018 Colonoscopy - 5 yr interval DILATION & CURETTAGE DX&/THER NONOBSTETRIC 10/2012 Dilation & curettage ESOPHAGOGASTRODUODENOSCOPY TRANSORAL DIAGNOSTIC 10/30/2013 EGD ESOPHAGOGASTRODUODENOSCOPY TRANSORAL DIAGNOSTIC 02/24/2018 EGD HYSTEROSCOPY BX W/WO D&C 12/30/2012 hysteroscopy D&C w mirena insertion INSERTION OF IUD 12/30/2012 LAPAROSCOPY SURG CHOLECYSTECTOMY 1990s Cholecystectomy, lap FAMILY HISTORY Problem Relation Age of Onset Breast Cancer Mother 63 Diabetes Mother Glaucoma Mother Cancer Father Heart disease Maternal Grandfather Stroke Paternal Grandmother Social History Tobacco Use Smoking status: Former Packs/day: 0.50 Years: 10.00 Pack years: 5.00 Types: Cigarettes Quit date: 05/29/2010 Years since quittin.2 Smokeless tobacco: Never Tobacco comments: one pack per week for 2 years Vaping Use Vaping Use: Never used Substance Use Topics Alcohol use: Yes Comment: occasionally Drug use: No Comment: marijuana in the past Current Outpatient Medications Medication Sig fluticasone (FLONASE) 50 mcg/actuation nasal spray USE 2 SPRAYS IN EACH NOSTRIL ONCE DAILY. RINSE MOUTH AFTER USE. FLUoxetine (PROZAC) 40 mg capsule Take 1 capsule by mouth once daily. NOVOLOG FLEXPEN U-100 INSULIN 100 unit/mL (3 mL) Use 44 units with full meal. Use 10 units with a snack. If exercising after meal, use 38-40 units with that meal. hydroCHLOROthiazide (HYDRODIURIL, ESIDRIX) 12.5 mg tablet Take 1 tablet by mouth once daily. levothyroxine (SYNTHROID) 200 mcg tablet Take once daily in addition to 150 mcg for thyroid acetaminophen (TYLENOL) 325 mg tablet Take 250 mg by mouth as needed. nystatin-triamcinolone (MYCOLOG) ointment Apply sparingly to chest rash twice daily for irritation/infection. insulin degludec (TRESIBA FLEXTOUCH U-200) 200 unit/mL (3 mL) injection Inject 110 Units subcutaneously every morning. lisinopril 2.5 mg tablet Take 1 tablet by mouth once daily. atorvastatin (LIPITOR) 20 mg tablet Take 1 tablet by mouth once daily. metFORMIN ER (GLUCOPHAGE XR) 500 mg 24 hr tablet Take 2 tablets by mouth twice daily. pioglitazone (ACTOS) 15 mg tablet Take 1 tablet by mouth once daily. cholecalciferol, Vitamin D3, (VITAMIN D3) 1,250 mcg (50,000 unit) cap capsule Take 1 capsule by mouth one time a week. ferrous sulfate 325 mg (65 mg iron) tablet Take 1 tablet by mouth daily with breakfast. famotidine (PEPCID) 20 mg tablet Take 1 tablet by mouth twice daily. nystatin (NYSTOP) powder Apply 1 application to affected area four times daily. albuterol HFA (VENTOLIN HFA) 90 mcg/actuation inhaler Inhale 2 Puffs as instructed every 4 hours asneeded for Wheezing/Shortness of Breath. levonorgestrel (MIRENA) 20 mcg/24 hours (5 yrs) 52 mg IUD 1 Each by INTRAUTERINE route one time only. lidocaine (XYLOCAINE) 5 % ointment Apply 1 application to affected area as needed. CPAP as directed. TENS unit and electrodes cmpk levothyroxine (SYNTHROID) 50 mcg tablet Take 1 tablet by mouth once daily. Take on empty stomach. For Thyroid. blood sugar diagnostic test strip Use to check blood sugar three times daily. Dx: Type 2 DM - Uncontrolled E11.9 MULTIPLE INSULIN INJECTIONS nystatin (MYCOSTATIN) 100,000 unit/mL suspension Take 5 mL by mouth four times daily. 1tsp swish inmouth for several minutes, then swallow (or expectorate) 4 times daily until gone. (Patient not taking: Reported on 03/19/2022) Ciclopirox (LOPROX) 8 % solution APPLY TO AFFECTED AREA DAILY AT BEDTIME. TO AFFECTED AREA. (Patient not taking: Reported on 03/19/2022) urea (CARMOL) 40 % Apply to affected area twice daily. (Patient not taking: Reported on 03/19/2022) insulin needles, DISPOSABLE, (PEN NEEDLE) 31 gauge x 5/16 Use one needle 3-4 times daily with insulin. E11.65 Insulin: Yes Blood-Glucose Meter misc Use to check blood sugar three times daily. Dx: Type 2 DM - Uncontrolled E11.65 Lancets lancets Use to check blood sugar three times daily. Dx: Type 2 DM - Uncontrolled E11.65 ALCOHOL PREP PADS padm TEST BLOOD SUGARS 3 TIMES DAILY No current facility-administered medications for this visit. Allergies As of Date: 08/07/2022 Allergen Noted Reaction CODEINE 08/01/2012 Swelling NITROFURANTOIN 06/14/2021 Swelling PENICILLINS 04/27/2010 Rash SULFA (SULFONAMIDE ANTIBIOTICS) 02/09/2022 Rash and Unknown SULFAMETHOXAZOLE-TRIMETHOPRIM 09/08/2015 Rash TRIMETHOPRIM 02/09/2022 Unknown Fully Assessed 08/07/2022 REVIEW OF SYSTEMS Abdomen: No bloating, early satiety, indigestion, or increased flatulence. No abdominal pain, nausea, vomiting, diarrhea, or constipation. Bladder: see HPI. Allergies and current medication updated:Yes EXAM: BP 120/68 Wt 244 lb 9.6 oz (111.0kg) LMP 09/27/2013 GENERAL: pleasant, female in no apparent distress CHEST: Normal inspiratory effort ABDOMEN: no CVAT NEURO: alert and oriented x3,exam grossly non-focal ASSESSMENT/PLAN: 1. Urinary tract infection with hematuria, site unspecified - ICD9: 599.0, 599.70, ICD10: N39.0, R31.9 acute - UA positive for shabnam esterase, hematuria, proteinuria, and nitrates - Send urine for culture - Begin treatment with Ciprofloxacin 500 mg BID for 7 days - Patient education for prevention given - CIPROFLOXACIN 500 MG TABLET - PHENAZOPYRIDINE 200 MG TABLET - UTI instructions. Will notify of results. Follow- up as needed. Mela Garcia APRN.DRILL HAND Medical Decision Making: Problems: Low: Acute, uncomplicated illness or injury Data: Unique test(s) ordered: 2 Risk: Moderate: Drug management Medical Decision Making Level: 3 - Low documented in this encounterC[facility]12-28-2022 Miscellaneous Notes* Telephone Encounter - Papa Douglass MD - 07/18/2022 2:31 PM EST Noted Papa Douglass MD * Telephone Encounter - Semaj Vega RN - 07/18/2022 2:17 PM EST [facility], reports they received a referral from [employer], and have called patient 3 times. The first time could not leave voice mail, the 2nd and 3rd time they did leave voicemail. They also left voicemail on brothers number. Have not heard back from patient, so they are going to toss the referral. documented in this encounterC[facility]12-28-2022 Instructions* Patient Instructions* Marissa Fenton APRN.CNP - 07/18/2022 10:49 AM EST May take an extra dose of hydrochlorothiazide for the next three days documented in this encounterCleveland Clinic [facility]12-28-2022 History of Present illness Narrative* Mraissa Fenton APRN.CNP - 07/18/2022 10:30 AM EST 07/18/2022 Patient presents with: Same Day Appointment: swelling in legs with redness x 2 weeks getting worse SUBJECTIVE: This is a 56 year old that is here today for Above Complaints.. For the last three weeks has had some redness and swelling to bilateral legs Hands feel puffy. Feetfeel cold. Has some SOB at times. Taking medications as prescribed. Denies fevers, chills, dyspnea,orthopnea, wheezing, chest pain, or palpitations PAST MEDICAL HISTORY Diagnosis Date Anemia Hypercholesteremia Mental disorder anxiety/depression Obesity Snoring Type II or unspecified type diabetes mellitus without mention of complication, not stated as uncontrolled Unspecified hypothyroidism Vomiting blood ALLERGIES Codeine, Nitrofurantoin, Penicillins, Sulfa (Sulfonamide Antibiotics), Sulfamethoxazole-Trimethoprim, and Trimethoprim MEDICATIONS Current Outpatient Medications Medication Sig fluticasone (FLONASE) 50 mcg/actuation nasal spray Use 2 Sprays in each nostril once daily. Rinse mouth after use. FLUoxetine (PROZAC) 40 mg capsule Take 1 capsule by mouth once daily. levothyroxine (SYNTHROID) 50 mcg tablet Take 1 tablet by mouth once daily. Take on empty stomach. For Thyroid. semaglutide (OZEMPIC) 0.25 mg or 0.5 mg(2 mg/1.5 mL) pen Inject 0.25 mg subcutaneously one time a week. NOVOLOG FLEXPEN U-100 INSULIN 100 unit/mL (3 mL) Use 44 units with full meal. Use 10 units with a snack. If exercising after meal, use 38-40 units with that meal. blood sugar diagnostic test strip Use to check blood sugar three times daily. Dx: Type 2 DM - Uncontrolled E11.9 MULTIPLE INSULIN INJECTIONS hydroCHLOROthiazide (HYDRODIURIL, ESIDRIX) 12.5 mg tablet Take 1 tablet by mouth once daily. levothyroxine (SYNTHROID) 200 mcg tablet Take once daily in addition to 150 mcg for thyroid acetaminophen (TYLENOL) 325 mg tablet Take 250 mg by mouth as needed. nystatin (MYCOSTATIN) 100,000 unit/mL suspension Take 5 mL by mouth four times daily. 1tsp swish inmouth for several minutes, then swallow (or expectorate) 4 times daily until gone. (Patient not taking: Reported on 03/19/2022) nystatin-triamcinolone (MYCOLOG) ointment Apply sparingly to chest rash twice daily for irritation/infection. insulin degludec (TRESIBA FLEXTOUCH U-200) 200 unit/mL (3 mL) injection Inject 110 Units subcutaneously every morning. lisinopril 2.5 mg tablet Take 1 tablet by mouth once daily. atorvastatin (LIPITOR) 20 mg tablet Take 1 tablet by mouth once daily. metFORMIN ER (GLUCOPHAGE XR) 500 mg 24 hr tablet Take 2 tablets by mouth twice daily. pioglitazone (ACTOS) 15 mg tablet Take 1 tablet by mouth once daily. Ciclopirox (LOPROX) 8 % solution APPLY TO AFFECTED AREA DAILY AT BEDTIME. TO AFFECTED AREA. (Patient not taking: Reported on 03/19/2022) urea (CARMOL) 40 % Apply to affected area twice daily. (Patient not taking: Reported on 03/19/2022) cholecalciferol, Vitamin D3, (VITAMIN D3) 1,250 mcg (50,000 unit) cap capsule Take 1 capsule by mouth one time a week. ferrous sulfate 325 mg (65 mg iron) tablet Take 1 tablet by mouth daily with breakfast. famotidine (PEPCID) 20 mg tablet Take 1 tablet by mouth twice daily. nystatin (NYSTOP) powder Apply 1 application to affected area four times daily. insulin needles, DISPOSABLE, (PEN NEEDLE) 31 gauge x 5/16 Use one needle 3-4 times daily with insulin. E11.65 Insulin: Yes albuterol HFA (VENTOLIN HFA) 90 mcg/actuation inhaler Inhale 2 Puffs as instructed every 4 hours asneeded for Wheezing/Shortness of Breath. levonorgestrel (MIRENA) 20 mcg/24 hours (5 yrs) 52 mg IUD 1 Each by INTRAUTERINE route one time only. Blood-Glucose Meter misc Use to check blood sugar three times daily. Dx: Type 2 DM - Uncontrolled E11.65 Lancets lancets Use to check blood sugar three times daily. Dx: Type 2 DM - Uncontrolled E11.65 lidocaine (XYLOCAINE) 5 % ointment Apply 1 application to affected area as needed. ALCOHOL PREP PADS padm TEST BLOOD SUGARS 3 TIMES DAILY CPAP as directed. TENS unit and electrodes cmpk No current facility-administered medications for this visit. Medications and allergies reviewed by this provider. SOCIAL HISTORY Social History Tobacco Use Smoking status: Former Packs/day: 0.50 Years: 10.00 Pack years: 5.00 Types: Cigarettes Quit date: 05/29/2010 Years since quittin.1 Smokeless tobacco: Never Tobacco comments: one pack per week for 2 years Vaping Use Vaping Use: Never used Substance Use Topics Alcohol use: Yes Comment: occasionally Drug use: No Comment: marijuana in the past REVIEW OF SYSTEMS All other reviewed and negative other than HPI. OBJECTIVE: BP 136/60 (BP Site: Left Arm, BP Position: Sitting, BP Cuff Size: Large Adult) Pulse 80 Temp (!) 35.9 C (96.7 F) Resp 16 Ht 154.9 cm (5' 1) Wt 112.9 kg (249 lb) LMP 09/27/2013 SpO2 97% BMI 47.05 kg/m . Vital signs reviewed by this provider. APPEARANCE Well appearing, alert, in no acute distress, well-hydrated, well nourished. and Obese HEART RRR with normal S1 and S2, no murmurs, no gallops, no JVD appreciated LUNG clear to auscultation EXTREMITIES positive findings: edema present bilaterally: 1+. 2+ pedal pulse with cap refill. Smallareas of slight erythema scattered to bilateral legs. No excessive warmth. Right lower leg slightlylarger then the left-per patient this is normal for her. No calf tenderness of palpable cord. Negative Homans' HEPATITIS B(1 of 3 - 3-dose series) Never done HEPATITIS C SCREENING Never done HIV SCREENING Never done BP CONTROLLED (<130/80) Never done PNEUMOCOCCAL(2 - PCV) due on 02/04/2013 SHINGRIX VACCINE(1 of 2) Never done URINE ALBUMIN:CREATININE RATIO due on 07/08/2021 DIABETIC FOOT EXAM due on 01/11/2022 INFLUENZA(1) due on 03/22/2022 COVID-19 VACCINE(5 - Booster for Pfizer series) due on 04/18/2022 MAMMOGRAM due on 10/09/2022 PAP TESTING due on 11/22/2022 HPV TESTING due on 11/22/2022 HBA1C due on 09/15/2022 COLORECTAL CANCER SCREENING due on 02/24/2023 DILATED RETINAL EXAM due on 02/27/2023 LDL CHOLESTEROL due on 03/12/2023 ANNUAL PCP TEAM CHRONIC DISEASE VISIT due on 07/18/2023 DTAP,TDAP,TD(3 - Td or Tdap) due on 06/06/2028 DEPRESSION ASSESSMENT Completed ASSESSMENT/PLAN: 1. Bilateral leg edema - ICD9: 782.3, ICD10: R60.0 - no red flag symptoms or exam findings - red flag symptoms discussed, verbalizes understanding - may take extras dose of HCTZ for three days - elevate legs when sitting, eat low salt diet - COMPRESSION STOCKINGS - follow-up if symptoms fail to improve, to ER with red flag symptoms Marissa Fenton APRN.CNP Prescription instructions reviewed with patient as applicable. Patient advised if symptoms do not improve or if symptoms worsen sooner, to contact their primary care physician. Potential red flag symptoms discussed with the patient. Reviewed appropriate action plan to take if red flag symptoms occur. Patient agreeable to treatment plan. I spent a total of 25 minutes on the date of the service which included preparing to see the patient, [id number] patient care, completing clinical documentation, obtaining and/or reviewing separately obtained history, performing a medically appropriate examination, counseling and educating the pat ient/family/caregiver, and ordering medications, tests, or procedures. documented in this encounterC[facility]12[facility]22 Miscellaneous Notes* Telephone Encounter - Cecilia Lopez Ma - 07/09/2022 12:54 PM EST Additional message left for pt to call back. Cecilia Lopez Ma * Telephone Encounter - Diamante Cai LPN - 07/04/2022 6:03 PM EST TC to pt. LM to call office, ask for triage nurse to get updates. Diamante Cai LPN * Telephone Encounter - Coco Waters APRN.CNP - 07/04/2022 6:00 PM EST Can you please call the patient and ask how she has been feeling? Has redness and swelling improvedon the face? [facility] only gave the patient 7 days of antibiotics, if she is still having symptoms I will send in a couple days extra. Coco Waters APRN.CNP * Telephone Encounter - Shea Husain Ma - 07/04/2022 3:11 PM EST Call to pt. Asked why she needed Keflex. Pt states she was told by Coco to update office if needing more. Shea Husain Ma * Telephone Encounter - Alison Quinn Pss - 07/04/2022 2:34 PM EST Patient is calling requesting Marissa call in another order of IC CEPHALAXIN [facility] in [place]. documented in this encounterC[facility]12-08-2022 Instructions* Patient Instructions* Coco Waters APRN.CNP - 06/28/2022 10:04 AM EST Continue to take Keflex as prescribed. 2. If swelling and redness get worse go to ER. 3. May apply cool compresses to help with pain. 4. May continue with ibuprofen as needed. 5. If you would like to see dermatology, Jaime Le is local to [place]. 6. Follow up as needed. documented in this encounterC[facility]12-08-2022 History of Present illness Narrative* Coco Waters APRN.DRILL HAND - 06/28/2022 9:40 AM EST This is a 56 year old female who presents today with: Patient presents with: Acute Visit: sinus issues HISTORY OF PRESENT ILLNESS: Leroy Tyler is a 56 year old female. Patient presents with: Acute Visit: sinus issues Here in the office for sinus concerns. [facility], concerns for erysipelas/Facial infection. Started on Keflex due to penicillin allergy. COVID/flu test was negative. 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 Yesterday was first full day on keflex. No fevers or chills. In regards to cold and GI, symptoms have improved. PAST MEDICAL HISTORY: PAST MEDICAL HISTORY Diagnosis Date Anemia Hypercholesteremia Mental disorder anxiety/depression Obesity Snoring Type II or unspecified type diabetes mellitus without mention of complication, not stated as uncontrolled Unspecified hypothyroidism Vomiting blood PAST SURGICAL HISTORY Procedure Laterality Date COLONOSCOPY FLX DX W/COLLJ SPEC WHEN PFRMD 04/01/2013 Colonoscopy COLONOSCOPY FLX DX W/COLLJ SPEC WHEN PFRMD 02/24/2018 Colonoscopy - 5 yr interval DILATION & CURETTAGE DX&/THER NONOBSTETRIC 10/2012 Dilation & curettage ESOPHAGOGASTRODUODENOSCOPY TRANSORAL DIAGNOSTIC 10/30/2013 EGD ESOPHAGOGASTRODUODENOSCOPY TRANSORAL DIAGNOSTIC 02/24/2018 EGD HYSTEROSCOPY BX W/WO D&C 12/30/2012 hysteroscopy D&C w mirena insertion INSERTION OF IUD 12/30/2012 LAPAROSCOPY SURG CHOLECYSTECTOMY 1990s Cholecystectomy, lap ALLERGIES Codeine, Nitrofurantoin, Penicillins, Sulfa (Sulfonamide Antibiotics), Sulfamethoxazole-Trimethoprim, and Trimethoprim MEDICATIONS Current Outpatient Medications Medication Sig cephALEXin (KEFLEX) 500 mg capsule Take 1 capsule by mouth four times daily for 7 days. fluticasone (FLONASE) 50 mcg/actuation nasal spray Use 2 Sprays in each nostril once daily. Rinse mouth after use. cetirizine (ZYRTEC) 10 mg tablet Take 1 tablet by mouth once daily for 14 days. FLUoxetine (PROZAC) 40 mg capsule Take 1 capsule by mouth once daily. levothyroxine (SYNTHROID) 50 mcg tablet Take 1 tablet by mouth once daily. Take on empty stomach. For Thyroid. semaglutide (OZEMPIC) 0.25 mg or 0.5 mg(2 mg/1.5 mL) pen Inject 0.25 mg subcutaneously one time a week. NOVOLOG FLEXPEN U-100 INSULIN 100 unit/mL (3 mL) Use 44 units with full meal. Use 10 units with a snack. If exercising after meal, use 38-40 units with that meal. blood sugar diagnostic test strip Use to check blood sugar three times daily. Dx: Type 2 DM - Uncontrolled E11.9 MULTIPLE INSULIN INJECTIONS hydroCHLOROthiazide (HYDRODIURIL, ESIDRIX) 12.5 mg tablet Take 1 tablet by mouth once daily. levothyroxine (SYNTHROID) 200 mcg tablet Take once daily in addition to 150 mcg for thyroid acetaminophen (TYLENOL) 325 mg tablet Take 250 mg by mouth as needed. nystatin (MYCOSTATIN) 100,000 unit/mL suspension Take 5 mL by mouth four times daily. 1tsp swish inmouth for several minutes, then swallow (or expectorate) 4 times daily until gone. (Patient not taking: Reported on 03/19/2022) nystatin-triamcinolone (MYCOLOG) ointment Apply sparingly to chest rash twice daily for irritation/infection. insulin degludec (TRESIBA FLEXTOUCH U-200) 200 unit/mL (3 mL) injection Inject 110 Units subcutaneously every morning. lisinopril 2.5 mg tablet Take 1 tablet by mouth once daily. atorvastatin (LIPITOR) 20 mg tablet Take 1 tablet by mouth once daily. metFORMIN ER (GLUCOPHAGE XR) 500 mg 24 hr tablet Take 2 tablets by mouth twice daily. pioglitazone (ACTOS) 15 mg tablet Take 1 tablet by mouth once daily. Ciclopirox (LOPROX) 8 % solution APPLY TO AFFECTED AREA DAILY AT BEDTIME. TO AFFECTED AREA. (Patient not taking: Reported on 03/19/2022) urea (CARMOL) 40 % Apply to affected area twice daily. (Patient not taking: Reported on 03/19/2022) cholecalciferol, Vitamin D3, (VITAMIN D3) 1,250 mcg (50,000 unit) cap capsule Take 1 capsule by mouth one time a week. ferrous sulfate 325 mg (65 mg iron) tablet Take 1 tablet by mouth daily with breakfast. famotidine (PEPCID) 20 mg tablet Take 1 tablet by mouth twice daily. nystatin (NYSTOP) powder Apply 1 application to affected area four times daily. insulin needles, DISPOSABLE, (PEN NEEDLE) 31 gauge x 5/16 Use one needle 3-4 times daily with insulin. E11.65 Insulin: Yes albuterol HFA (VENTOLIN HFA) 90 mcg/actuation inhaler Inhale 2 Puffs as instructed every 4 hours asneeded for Wheezing/Shortness of Breath. levonorgestrel (MIRENA) 20 mcg/24 hours (5 yrs) 52 mg IUD 1 Each by INTRAUTERINE route one time only. Blood-Glucose Meter misc Use to check blood sugar three times daily. Dx: Type 2 DM - Uncontrolled E11.65 Lancets lancets Use to check blood sugar three times daily. Dx: Type 2 DM - Uncontrolled E11.65 lidocaine (XYLOCAINE) 5 % ointment Apply 1 application to affected area as needed. ALCOHOL PREP PADS padm TEST BLOOD SUGARS 3 TIMES DAILY CPAP as directed. TENS unit and electrodes cmpk No current facility-administered medications for this visit. FAMILY HISTORY Problem Relation Age of Onset Breast Cancer Mother 63 Diabetes Mother Glaucoma Mother Cancer Father Heart disease Maternal Grandfather Stroke Paternal Grandmother Social History Tobacco Use Smoking status: Former Packs/day: 0.50 Years: 10.00 Pack years: 5.00 Types: Cigarettes Quit date: 05/29/2010 Years since quittin.0 Smokeless tobacco: Never Tobacco comments: one pack per week for 2 years Vaping Use Vaping Use: Never used Substance Use Topics Alcohol use: Yes Comment: occasionally Drug use: No Comment: marijuana in the past REVIEW OF SYSTEMS GENERAL: No weight loss, malaise or fevers/chills HEENT: Negative for frequent or significant headaches, No changes in hearing or vision. NECK: Negative for lumps, goiter, pain and significant neck swelling RESPIRATORY: Negative for cough, hemoptysis, wheezing, dyspnea or shortness of breath CARDIOVASCULAR: Negative for chest pain, leg swelling, orthopnea, or palpitations GI: No nausea, vomiting, or diarrhea/constipation. No hematochezia/melena. No heartburn or reflux symptoms. : No history of dysuria, frequency or incontinence MUSCULOSKELETAL: Negative for joint pain or swelling. SKIN: + Facial tenderness ENDOCRINE: Negative for cold or heat intolerance, polyuria, polydipsia and goiter NEURO: No history of headaches, syncope, paralysis, seizures or tremors MOOD: Negative for depression, anxiety, or suicidal ideation. EXAM: BP 112/66 Pulse 88 Resp 16 Wt 108.9 kg (240 lb) LMP 09/27/2013 SpO2 98% BMI 45.35 kg/m PHYSICAL EXAM: General Appearance: Well appearing, alert, in no acute distress, well-hydrated, well nourished. Skin: Mild erythema and swelling noted along bridge of nose onto the cheeks bilaterally. No difficulty with vision. No crusting or seeping noted. Head: Normocephalic, no masses, lesions, tenderness or abnormalities. Eyes: Anicteric sclera. Extraocular movements are intact. Neck: Supple, no adenopathy; thyroid symmetric, normal size, no bruits. Lungs: Lungs clear to auscultation. No wheezing, rhonchi, rales. Heart: RRR without murmur, gallop, or rubs. No ectopy. Extremities: No deformities, edema, skin discoloration, clubbing or cyanosis. Good capillary refill. Peripheral Pulses: Normal, Capillary refill <2secs, strong peripheral pulses, Pulses palpable. Neurologic: Gait normal. Reflexes normal and symmetric. Sensation grossly intact. ASSESSMENT/PLAN: 1. Facial infection - ICD9: 136.8, ICD10: L08.9 (primary diagnosis) - Continue treatment with Cephalaxin (Keflex) - No lymphangetic streaking, this was defined for patient to watch for and to seek medical care immediately if appears. - Instructed to contact the office if symptoms do not improve. - May apply cool compress and use ibuprofen as needed for pain relief. - Red flag symptoms given to patient, she verbalizes understanding when to seek care. 2. Erysipelas - ICD9: 035, ICD10: A46 - Same plan as #1. Follow up as needed or sooner if symptoms do not improve. Discussed treatment plan and patient voices understanding. Patient's questions answered appropriately. Medications and potential side effects were discussed and patient voices understanding. Coco Waters APRN.ALEXEI This note was partially generated using [employer] voice recognition system. Note was reviewed for accuracy. There may be minor misspellings or grammar miscues with [employer] voice recognition. documented in this encounterC[facility]12-[facility] History of Present illness Narrative* Génesis Zhang PA-C - 06/26/2022 12:34 PM EST Images from the original note were not included. This note was created using [employer]. Subjective Leroy Tyler is a 56 year old female. HPI Patient presents with a chief complaint of facial pain and redness with swelling this morning. She has had some nausea and body aches the past couple of days. Her friend was sick with viral symptoms as well. She did have some diarrhea. Minimal cough. Review of Systems Constitutional: Positive for chills and fatigue. HENT: Positive for congestion, facial swelling and postnasal drip. Negative for ear pain, sinus pressure and sore throat. Respiratory: Negative for shortness of breath. Cardiovascular: Negative. Gastrointestinal: Positive for nausea and vomiting. Genitourinary: Negative. Musculoskeletal: Positive for myalgias. Neurological: Positive for headaches. All other systems reviewed and are negative. PAST MEDICAL HISTORY Diagnosis Date Anemia Hypercholesteremia Mental disorder anxiety/depression Obesity Snoring Type II or unspecified type diabetes mellitus without mention of complication, not stated as uncontrolled Unspecified hypothyroidism Vomiting blood Current Outpatient Medications Medication Sig Dispense Refill FLUoxetine (PROZAC) 40 mg capsule Take 1 capsule by mouth once daily. 90 capsule 3 levothyroxine (SYNTHROID) 50 mcg tablet Take 1 tablet by mouth once daily. Take on empty stomach. For Thyroid. 30 tablet 5 NOVOLOG FLEXPEN U-100 INSULIN 100 unit/mL (3 mL) Use 44 units with full meal. Use 10 units with a snack. If exercising after meal, use 38-40 units with that meal. 7 Pen 5 blood sugar diagnostic test strip Use to check blood sugar three times daily. Dx: Type 2 DM - Uncontrolled E11.9 MULTIPLE INSULIN INJECTIONS 300 Strip 3 hydroCHLOROthiazide (HYDRODIURIL, ESIDRIX) 12.5 mg tablet Take 1 tablet by mouth once daily. 30 tablet 11 levothyroxine (SYNTHROID) 200 mcg tablet Take once daily in addition to 150 mcg for thyroid 90 tablet 3 acetaminophen (TYLENOL) 325 mg tablet Take 250 mg by mouth as needed. nystatin-triamcinolone (MYCOLOG) ointment Apply sparingly to chest rash twice daily for irritation/infection. 30 g 0 insulin degludec (TRESIBA FLEXTOUCH U-200) 200 unit/mL (3 mL) injection Inject 110 Units subcutaneously every morning. 60 mL 3 lisinopril 2.5 mg tablet Take 1 tablet by mouth once daily. 90 tablet 3 atorvastatin (LIPITOR) 20 mg tablet Take 1 tablet by mouth once daily. 90 tablet 3 metFORMIN ER (GLUCOPHAGE XR) 500 mg 24 hr tablet Take 2 tablets by mouth twice daily. 360 tablet 3 pioglitazone (ACTOS) 15 mg tablet Take 1 tablet by mouth once daily. 30 tablet 1 cholecalciferol, Vitamin D3, (VITAMIN D3) 1,250 mcg (50,000 unit) cap capsule Take 1 capsule by mouth one time a week. 12 capsule 3 ferrous sulfate 325 mg (65 mg iron) tablet Take 1 tablet by mouth daily with breakfast. 90 tablet 0 famotidine (PEPCID) 20 mg tablet Take 1 tablet by mouth twice daily. 60 tablet 1 nystatin (NYSTOP) powder Apply 1 application to affected area four times daily. 1 Bottle 4 insulin needles, DISPOSABLE, (PEN NEEDLE) 31 gauge x 5/16 Use one needle 3-4 times daily with insulin. E11.65 Insulin: Yes 360 Each 3 albuterol HFA (VENTOLIN HFA) 90 mcg/actuation inhaler Inhale 2 Puffs as instructed every 4 hours asneeded for Wheezing/Shortness of Breath. 18 g 2 levonorgestrel (MIRENA) 20 mcg/24 hours (5 yrs) 52 mg IUD 1 Each by INTRAUTERINE route one time only. Blood-Glucose Meter misc Use to check blood sugar three times daily. Dx: Type 2 DM - Uncontrolled E11.65 1 Each 0 Lancets lancets Use to check blood sugar three times daily. Dx: Type 2 DM - Uncontrolled E11.65 200Each 2 lidocaine (XYLOCAINE) 5 % ointment Apply 1 application to affected area as needed. 30 g 0 ALCOHOL PREP PADS padm TEST BLOOD SUGARS 3 TIMES DAILY 100 Each 11 CPAP as directed. TENS unit and electrodes cmpk 0 cephALEXin (KEFLEX) 500 mg capsule Take 1 capsule by mouth four times daily for 7 days. 28 capsule 0 fluticasone (FLONASE) 50 mcg/actuation nasal spray Use 2 Sprays in each nostril once daily. Rinse mouth after use. 1 Each 0 cetirizine (ZYRTEC) 10 mg tablet Take 1 tablet by mouth once daily for 14 days. 14 tablet 0 semaglutide (OZEMPIC) 0.25 mg or 0.5 mg(2 mg/1.5 mL) pen Inject 0.25 mg subcutaneously one time a week. 4 Each 5 nystatin (MYCOSTATIN) 100,000 unit/mL suspension Take 5 mL by mouth four times daily. 1tsp swish inmouth for several minutes, then swallow (or expectorate) 4 times daily until gone. (Patient not taking: Reported on 03/19/2022) 200 mL 1 Ciclopirox (LOPROX) 8 % solution APPLY TO AFFECTED AREA DAILY AT BEDTIME. TO AFFECTED AREA. (Patient not taking: Reported on 03/19/2022) 6.6 mL 2 urea (CARMOL) 40 % Apply to affected area twice daily. (Patient not taking: Reported on 03/19/2022) 198 g 11 No current facility-administered medications for this visit. PAST SURGICAL HISTORY Procedure Laterality Date COLONOSCOPY FLX DX W/COLLJ SPEC WHEN PFRMD 04/01/2013 Colonoscopy COLONOSCOPY FLX DX W/COLLJ SPEC WHEN PFRMD 02/24/2018 Colonoscopy - 5 yr interval DILATION & CURETTAGE DX&/THER NONOBSTETRIC 10/2012 Dilation & curettage ESOPHAGOGASTRODUODENOSCOPY TRANSORAL DIAGNOSTIC 10/30/2013 EGD ESOPHAGOGASTRODUODENOSCOPY TRANSORAL DIAGNOSTIC 02/24/2018 EGD HYSTEROSCOPY BX W/WO D&C 12/30/2012 hysteroscopy D&C w mirena insertion INSERTION OF IUD 12/30/2012 LAPAROSCOPY SURG CHOLECYSTECTOMY 1990s Cholecystectomy, lap FAMILY HISTORY Problem Relation Age of Onset Breast Cancer Mother 63 Diabetes Mother Glaucoma Mother Cancer Father Heart disease Maternal Grandfather Stroke Paternal Grandmother Social History Tobacco Use Smoking status: Former Packs/day: 0.50 Years: 10.00 Pack years: 5.00 Types: Cigarettes Quit date: 05/29/2010 Years since quittin.0 Smokeless tobacco: Never Tobacco comments: one pack per week for 2 years Vaping Use Vaping Use: Never used Substance Use Topics Alcohol use: Yes Comment: occasionally Drug use: No Comment: marijuana in the past Objective BP 122/62 Pulse 104 Temp 36.6 C (97.8 F) Resp 18 Wt 106.6 kg (235 lb) LMP 09/27/2013 SpO2 95% BMI 44.40 kg/m Physical Exam Vitals reviewed. Constitutional: Appearance: Normal appearance. HENT: Head: Comments: Redness and swelling with some minimal induration to her bilateral cheeks. No sign of abscess. Right Ear: Tympanic membrane, ear canal and external ear normal. Left Ear: Tympanic membrane, ear canal and external ear normal. Nose: Congestion present. Mouth/Throat: Mouth: Mucous membranes are moist. Pharynx: Oropharynx is clear. Cardiovascular: Rate and Rhythm: Normal rate and regular rhythm. Heart sounds: Normal heart sounds. Pulmonary: Effort: Pulmonary effort is normal. Breath sounds: Normal breath sounds. Musculoskeletal: Cervical back: Neck supple. Skin: General: Skin is warm and dry. Findings: No rash. Neurological: Mental Status: She is alert. Assessment and Plan ASSESSMENT/PLAN: 1. Viral URI - ICD9: 465.9, ICD10: J06.9 (primary diagnosis) - Discussed viral etiology and rationale for treatment. - Symptomatic treatment with prn analgesia - Supportive care with fluids and rest - COVID WITH FLUA+B, ROUTINE 2. Facial infection - ICD9: 136.8, ICD10: L08.9 - Begin treatment with Cephalaxin (Keflex) -Patient has redness and swelling of her face, concerning for possible erysipelas. She is allergic to penicillin, I did place her on Keflex. Discussed red flags for ER care. Patient agreeable. Génesis Zhang PA-C documented in this encounterC[facility]12-01-2022 Instructions* Patient Instructions* Coco Waters APRN.CNP - 06/21/2022 8:35 AM EST Decrease synthroid to 250 mcg. 1 tablet 200 mcg and 1 tablet 50 mcg. Get repeat labs in 6 weeks to check thyroid Schedule appointment with endocrinology, Dr. Cervantes at [facility] Continue to take all diabetes medication as prescribed, start Ozempic 0.25 mg once weekly. Continue to eat low carb and monitor sugars at home. Follow up in 3 months or sooner pending test results. documented in this encounterC[facility]12-01-2022 History of Present illness Narrative* Coco Waters APRN.CNP - 06/21/2022 8:00 AM EST This is a 56 year old female who presents today with: Patient presents with: Follow Up: DM and Labs HISTORY OF PRESENT ILLNESS: Leroy Tyler is a 56 year old female. Patient presents with: Follow Up: DM and Labs Here in the office for follow-up. DM2: Fasting sugars at home 200's. Trying to work on low carb diet. Drinks 3 cans of soda, pepsi per day. Taking metformin XR 500 mg, 2 tabs twice daily, Actos 15 mg daily, Tresiba 100 units in the morning, and NovoLog 45 units with each meal, 10 units with snacks. No hypoglycemic episdoes. No increased thirst or urination. Refers she has tinging in the feet which is constant. A1c 10.8 to 9.4. Has been walking daily at work. Never started Trulicity due to costs. Saw nurse practitioner within endocrinology department ([facility]) in February who referred her to endocrinology. Needs to schedule appointment. Thyroid: Has been having palpitations and difficulty sleeping. Noticed lower leg swelling. TSH has been low. Taking synthroid 300 mcg daily. No difficulty swalllowing. Recent labs show TSH from 0.027-0.067 within 3 months. Last visit with endocrinology nurse practitioner Synthroid was reduced from 350 mcg to 300 mcg. PAST MEDICAL HISTORY: PAST MEDICAL HISTORY Diagnosis Date Anemia Hypercholesteremia Mental disorder anxiety/depression Obesity Snoring Type II or unspecified type diabetes mellitus without mention of complication, not stated as uncontrolled Unspecified hypothyroidism Vomiting blood PAST SURGICAL HISTORY Procedure Laterality Date COLONOSCOPY FLX DX W/COLLJ SPEC WHEN PFRMD 04/01/2013 Colonoscopy COLONOSCOPY FLX DX W/COLLJ SPEC WHEN PFRMD 02/24/2018 Colonoscopy - 5 yr interval DILATION & CURETTAGE DX&/THER NONOBSTETRIC 10/2012 Dilation & curettage ESOPHAGOGASTRODUODENOSCOPY TRANSORAL DIAGNOSTIC 10/30/2013 EGD ESOPHAGOGASTRODUODENOSCOPY TRANSORAL DIAGNOSTIC 02/24/2018 EGD HYSTEROSCOPY BX W/WO D&C 12/30/2012 hysteroscopy D&C w mirena insertion INSERTION OF IUD 12/30/2012 LAPAROSCOPY SURG CHOLECYSTECTOMY 1990s Cholecystectomy, lap ALLERGIES Codeine, Nitrofurantoin, Penicillins, Sulfa (Sulfonamide Antibiotics), Sulfamethoxazole-Trimethoprim, and Trimethoprim MEDICATIONS Current Outpatient Medications Medication Sig cefdinir (OMNICEF) 300 mg capsule Take by mouth. NOVOLOG FLEXPEN U-100 INSULIN 100 unit/mL (3 mL) Use 44 units with full meal. Use 10 units with a snack. If exercising after meal, use 38-40 units with that meal. blood sugar diagnostic test strip Use to check blood sugar three times daily. Dx: Type 2 DM - Uncontrolled E11.9 MULTIPLE INSULIN INJECTIONS hydroCHLOROthiazide (HYDRODIURIL, ESIDRIX) 12.5 mg tablet Take 1 tablet by mouth once daily. dulaglutide (TRULICITY) 0.75 mg/0.5 mL pen injector Inject 0.75 mg subcutaneously one time a week. (Patient not taking: Reported on 06/15/2022) levothyroxine (SYNTHROID) 100 mcg tablet Take 1 tablet by mouth once daily. Take on empty stomach. Take along with 200 mcg pill once daily levothyroxine (SYNTHROID) 200 mcg tablet Take once daily in addition to 150 mcg for thyroid acetaminophen (TYLENOL) 325 mg tablet Take 250 mg by mouth as needed. nystatin (MYCOSTATIN) 100,000 unit/mL suspension Take 5 mL by mouth four times daily. 1tsp swish inmouth for several minutes, then swallow (or expectorate) 4 times daily until gone. (Patient not taking: Reported on 03/19/2022) nystatin-triamcinolone (MYCOLOG) ointment Apply sparingly to chest rash twice daily for irritation/infection. insulin degludec (TRESIBA FLEXTOUCH U-200) 200 unit/mL (3 mL) injection Inject 110 Units subcutaneously every morning. lisinopril 2.5 mg tablet Take 1 tablet by mouth once daily. atorvastatin (LIPITOR) 20 mg tablet Take 1 tablet by mouth once daily. metFORMIN ER (GLUCOPHAGE XR) 500 mg 24 hr tablet Take 2 tablets by mouth twice daily. pioglitazone (ACTOS) 15 mg tablet Take 1 tablet by mouth once daily. Ciclopirox (LOPROX) 8 % solution APPLY TO AFFECTED AREA DAILY AT BEDTIME. TO AFFECTED AREA. (Patient not taking: Reported on 03/19/2022) urea (CARMOL) 40 % Apply to affected area twice daily. (Patient not taking: Reported on 03/19/2022) cholecalciferol, Vitamin D3, (VITAMIN D3) 1,250 mcg (50,000 unit) cap capsule Take 1 capsule by mouth one time a week. ferrous sulfate 325 mg (65 mg iron) tablet Take 1 tablet by mouth daily with breakfast. FLUoxetine HCl (PROZAC) 40 mg capsule Take 1 capsule by mouth once daily. famotidine (PEPCID) 20 mg tablet Take 1 tablet by mouth twice daily. nystatin (NYSTOP) powder Apply 1 application to affected area four times daily. insulin needles, DISPOSABLE, (PEN NEEDLE) 31 gauge x 5/16 Use one needle 3-4 times daily with insulin. E11.65 Insulin: Yes albuterol HFA (VENTOLIN HFA) 90 mcg/actuation inhaler Inhale 2 Puffs as instructed every 4 hours asneeded for Wheezing/Shortness of Breath. levonorgestrel (MIRENA) 20 mcg/24 hours (5 yrs) 52 mg IUD 1 Each by INTRAUTERINE route one time only. Blood-Glucose Meter misc Use to check blood sugar three times daily. Dx: Type 2 DM - Uncontrolled E11.65 Lancets lancets Use to check blood sugar three times daily. Dx: Type 2 DM - Uncontrolled E11.65 lidocaine (XYLOCAINE) 5 % ointment Apply 1 application to affected area as needed. ALCOHOL PREP PADS padm TEST BLOOD SUGARS 3 TIMES DAILY CPAP as directed. TENS unit and electrodes cmpk No current facility-administered medications for this visit. FAMILY HISTORY Problem Relation Age of Onset Breast Cancer Mother 63 Diabetes Mother Glaucoma Mother Cancer Father Heart disease Maternal Grandfather Stroke Paternal Grandmother Social History Tobacco Use Smoking status: Former Packs/day: 0.50 Years: 10.00 Pack years: 5.00 Types: Cigarettes Quit date: 05/29/2010 Years since quittin.0 Smokeless tobacco: Never Tobacco comments: one pack per week for 2 years Vaping Use Vaping Use: Never used Substance Use Topics Alcohol use: Yes Comment: occasionally Drug use: No Comment: marijuana in the past REVIEW OF SYSTEMS GENERAL: No weight loss, malaise or fevers/chills HEENT: Negative for frequent or significant headaches, No changes in hearing or vision. NECK: Negative for lumps, goiter, pain and significant neck swelling RESPIRATORY: Negative for cough, hemoptysis, wheezing, dyspnea or shortness of breath CARDIOVASCULAR: + Palpitations GI: No nausea, vomiting, or diarrhea/constipation. No hematochezia/melena. No heartburn or reflux symptoms. : No history of dysuria, frequency or incontinence MUSCULOSKELETAL: Negative for joint pain or swelling. SKIN: Negative for lesions, rash, and itching ENDOCRINE: Negative for cold or heat intolerance, polyuria, polydipsia and goiter NEURO: No history of headaches, syncope, paralysis, seizures or tremors MOOD: Negative for depression, anxiety, or suicidal ideation. + Difficulty sleeping EXAM: BP 112/74 Pulse 83 Resp 16 Wt 108.4 kg (239 lb) LMP 09/27/2013 SpO2 99% BMI 45.16 kg/m PHYSICAL EXAM: General Appearance: Well appearing, alert, in no acute distress, well-hydrated, well nourished. Skin: Skin color, texture, turgor normal, no suspicious rashes or lesions. Head: Normocephalic, no masses, lesions, tenderness or abnormalities. Eyes: Anicteric sclera. Extraocular movements are intact. Neck: Supple, no adenopathy; thyroid symmetric, normal size, no bruits. Lungs: Lungs clear to auscultation. No wheezing, rhonchi, rales. Heart: RRR without murmur, gallop, or rubs. No ectopy. Extremities: No deformities, edema, skin discoloration, clubbing or cyanosis. Good capillary refill. Peripheral Pulses: Normal, Capillary refill <2secs, strong peripheral pulses, Pulses palpable. Neurologic: Gait normal. Sensation grossly intact. ASSESSMENT/PLAN: 1. Type 2 diabetes mellitus without complication, with long-term current use of insulin ([facility]) - ICD9: 250.00, V58.67, ICD10: E11.9, Z79.4 (primary diagnosis) improved control - Continue current medications - Add Ozempic 0.25 mg once weekly SQ. - Encouraged regular aerobic exercise and weight loss - Continue to work on eating a low carb diet, increase water intake. - Patient requesting to see Dr. Cervantes in endocrinology at [facility]. - HGB A1C - COMP METABOLIC PANEL - OZEMPIC 0.25 MG OR 0.5 MG (2 MG/1.5 ML) SUBCUTANEOUS PEN INJECTOR 2. Hypothyroidism, unspecified type - ICD9: 244.9, ICD10: E03.9 - Instructed patient on importance of taking on an empty stomach either first thing in the morning or at bedtime. - TSH is still low which is due to thyroid overmedication - Decrease synthroid, take 250 mcg daily - Get repeat labs in 6 weeks. - LEVOTHYROXINE 50 MCG TABLET - TSH BLD - T4 FREE/FREE THYROX 3. Anxiety with depression - ICD9: 300.4, ICD10: F41.8 - Refill provided. - FLUOXETINE 40 MG CAPSULE Follow up in 3 months or sooner as needed. Discussed treatment plan and patient voices understanding. Patient's questions answered appropriately. Medications and potential side effects were discussed and patient voices understanding. Coco Waters APRN.DRILL HAND This note was partially generated using Dragon voice recognition system. Note was reviewed for accuracy. There may be minor misspellings or grammar miscues with [employer] voice recognition. documented in this encounterCleveland [facility]11-16-2022 Miscellaneous Notes* Telephone Encounter - Cecilia Lopez Ma - 06/06/2022 2:46 PM EST Pt notified and voiced understanding. Cecilia Lopez Ma * Telephone Encounter - Papa Douglass MD - 06/06/2022 2:20 PM EST She may decrease Tresiba to 100 units daily, and Novolog to 45 units with meals She should get labs done before her appt with Coco in 2 weeks Papa Douglass MD * Telephone Encounter - Yessy Rodgers RN - 06/06/2022 10:10 AM EST Pt called in asking about her insulin. She reports she had been out of testing strips, but she has had some low readings. 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 She report she takes Tresiba 110 units and Novolog 47 units. 06/05 (am) 102 (1200 pm) 155 (1234 pm) 307 (429 pm) 155 (731 PM) 80 (834 pm) 102 06/06 (am) 248 Pt is asking if provider thinks she should lower her BS medications because of lower BS. She statesat 80 she feels symptomatic. Please call and advise. documented in this encounterCleveland [facility]09-06-2022 History of Present illness Narrative* Melissa Cabrales OD - 03/27/2022 10:48 AM EDT 1. Regular astigmatism of both eyes 2. Presbyopia Finalized spec rx but okay to continue with OTC readers 3. Dry eye syndrome of bilateral lacrimal glands 4. Punctate keratitis of right eye Continue gel nightly and artificial tears 2-3 times daily 5. Type 2 diabetes mellitus without retinopathy (HCC) Risk of diabetic changes and vision loss can be minimized by tight control of blood sugar, blood pressure, and cholesterol levels. Educated patient to continue care with primary care doctor and/or security chief museum to maintain optimum levels as they are important to avoid ocular complications. Encouraged patient to call the office immediately with any changes to vision or visual concerns. Advised to not wait until the next scheduled exam. Follow-up in 6 months for dry eye check Melissa Cabrales, OD March 27, 2022 10:48 AM documented in this encounterCleveland Clinic [facility]08-29-2022 Instructions* Patient Instructions* Coco Waters APRN.CNP - 03/19/2022 11:50 AM EDT 1.) Schedule follow up appointment with Endo after next lab draw, labs due on 04/25/2022. 2.) Continue to take all medication as prescribed. 3.) Continue to work on eating a low carb diet, increase protein and veggies. Try to get some form of exercise. 4.) Schedule appointments for diabetic education. 5.) Follow up in 3 month or sooner as needed. documented in this encounterCleveland Clinic [facility]08-29-2022 History of Present illness Narrative* Coco Waters APRN.CNP - 03/19/2022 11:40 AM EDT This is a 56 year old female who presents today with: Patient presents with: Follow Up: Lab follow up HISTORY OF PRESENT ILLNESS: Leroy Tyler is a 56 year old female. Patient presents with: Follow Up: Lab follow up Here in the office to discuss lab results. Needs medication refills. Seeing Endo for diabetes and hypothyroidism. Had appointment on 03/14/22, TSH was low at 0.067. Repeat labs from Endo are due in April. Reduced to 300 mcg of Synthroid daily. Just started Trulicity 0.75 mg, needs to molded goods spot picker medication from pharmacy. Fasting sugars 200-300. Refers she will be following up with endo in April. HTN: Taking Toprol 2.5 mg and hydrochlorothiazide 12.5 mg daily. Denies chest pain, palpitations, dizziness, or edema. PAST MEDICAL HISTORY: PAST MEDICAL HISTORY Diagnosis Date Anemia Hypercholesteremia Mental disorder anxiety/depression Obesity Snoring Type II or unspecified type diabetes mellitus without mention of complication, not stated as uncontrolled Unspecified hypothyroidism Vomiting blood PAST SURGICAL HISTORY Procedure Laterality Date COLONOSCOPY FLX DX W/COLLJ SPEC WHEN PFRMD 04/01/2013 Colonoscopy COLONOSCOPY FLX DX W/COLLJ SPEC WHEN PFRMD 02/24/2018 Colonoscopy - 5 yr interval DILATION & CURETTAGE DX&/THER NONOBSTETRIC 10/2012 Dilation & curettage ESOPHAGOGASTRODUODENOSCOPY TRANSORAL DIAGNOSTIC 10/30/2013 EGD ESOPHAGOGASTRODUODENOSCOPY TRANSORAL DIAGNOSTIC 02/24/2018 EGD HYSTEROSCOPY BX W/WO D&C 12/30/2012 hysteroscopy D&C w mirena insertion INSERTION OF IUD 12/30/2012 LAPAROSCOPY SURG CHOLECYSTECTOMY 1990s Cholecystectomy, lap ALLERGIES Codeine, Nitrofurantoin, Penicillins, Sulfa (Sulfonamide Antibiotics), Sulfamethoxazole-Trimethoprim, and Trimethoprim MEDICATIONS Current Outpatient Medications Medication Sig NOVOLOG FLEXPEN U-100 INSULIN 100 unit/mL (3 mL) Use 44 units with full meal. Use 10 units with a snack. If exercising after meal, use 38-40 units with that meal. dulaglutide (TRULICITY) 0.75 mg/0.5 mL pen injector Inject 0.75 mg subcutaneously one time a week. levothyroxine (SYNTHROID) 100 mcg tablet Take 1 tablet by mouth once daily. Take on empty stomach. Take along with 200 mcg pill once daily levothyroxine (SYNTHROID) 200 mcg tablet Take once daily in addition to 150 mcg for thyroid blood sugar diagnostic test strip Use to check blood sugar three times daily. Dx: Type 2 DM - Uncontrolled E11.9 MULTIPLE INSULIN INJECTIONS acetaminophen (TYLENOL) 325 mg tablet Take 250 mg by mouth as needed. nystatin (MYCOSTATIN) 100,000 unit/mL suspension Take 5 mL by mouth four times daily. 1tsp swish inmouth for several minutes, then swallow (or expectorate) 4 times daily until gone. nystatin-triamcinolone (MYCOLOG) ointment Apply sparingly to chest rash twice daily for irritation/infection. insulin degludec (TRESIBA FLEXTOUCH U-200) 200 unit/mL (3 mL) injection Inject 110 Units subcutaneously every morning. lisinopril 2.5 mg tablet Take 1 tablet by mouth once daily. atorvastatin (LIPITOR) 20 mg tablet Take 1 tablet by mouth once daily. metFORMIN ER (GLUCOPHAGE XR) 500 mg 24 hr tablet Take 2 tablets by mouth twice daily. pioglitazone (ACTOS) 15 mg tablet Take 1 tablet by mouth once daily. Ciclopirox (LOPROX) 8 % solution APPLY TO AFFECTED AREA DAILY AT BEDTIME. TO AFFECTED AREA. urea (CARMOL) 40 % Apply to affected area twice daily. cholecalciferol, Vitamin D3, (VITAMIN D3) 1,250 mcg (50,000 unit) cap capsule Take 1 capsule by mouth one time a week. ferrous sulfate 325 mg (65 mg iron) tablet Take 1 tablet by mouth daily with breakfast. FLUoxetine HCl (PROZAC) 40 mg capsule Take 1 capsule by mouth once daily. hydroCHLOROthiazide (HYDRODIURIL, ESIDRIX) 12.5 mg tablet Take 1 tablet by mouth once daily. famotidine (PEPCID) 20 mg tablet Take 1 tablet by mouth twice daily. nystatin (NYSTOP) powder Apply 1 application to affected area four times daily. insulin needles, DISPOSABLE, (PEN NEEDLE) 31 gauge x 5/16 Use one needle 3-4 times daily with insulin. E11.65 Insulin: Yes albuterol HFA (VENTOLIN HFA) 90 mcg/actuation inhaler Inhale 2 Puffs as instructed every 4 hours asneeded for Wheezing/Shortness of Breath. levonorgestrel (MIRENA) 20 mcg/24 hours (5 yrs) 52 mg IUD 1 Each by INTRAUTERINE route one time only. Blood-Glucose Meter misc Use to check blood sugar three times daily. Dx: Type 2 DM - Uncontrolled E11.65 Lancets lancets Use to check blood sugar three times daily. Dx: Type 2 DM - Uncontrolled E11.65 lidocaine (XYLOCAINE) 5 % ointment Apply 1 application to affected area as needed. ALCOHOL PREP PADS padm TEST BLOOD SUGARS 3 TIMES DAILY CPAP as directed. TENS unit and electrodes cmpk No current facility-administered medications for this visit. FAMILY HISTORY Problem Relation Age of Onset Breast Cancer Mother 63 Diabetes Mother Glaucoma Mother Cancer Father Heart disease Maternal Grandfather Stroke Paternal Grandmother Social History Tobacco Use Smoking status: Former Packs/day: 0.50 Years: 10.00 Pack years: 5.00 Types: Cigarettes Quit date: 05/29/2010 Years since quittin.8 Smokeless tobacco: Never Tobacco comments: one pack per week for 2 years Vaping Use Vaping Use: Never used Substance Use Topics Alcohol use: Yes Comment: occasionally Drug use: No Comment: marijuana in the past REVIEW OF SYSTEMS GENERAL: No weight loss, malaise or fevers/chills HEENT: Negative for frequent or significant headaches, No changes in hearing or vision. NECK: Negative for lumps, goiter, pain and significant neck swelling RESPIRATORY: Negative for cough, hemoptysis, wheezing, dyspnea or shortness of breath CARDIOVASCULAR: Negative for chest pain, leg swelling, orthopnea, or palpitations GI: No nausea, vomiting, or diarrhea/constipation. No hematochezia/melena. No heartburn or reflux symptoms. : No history of dysuria, frequency or incontinence MUSCULOSKELETAL: Negative for joint pain or swelling. SKIN: Negative for lesions, rash, and itching ENDOCRINE: Negative for cold or heat intolerance, polyuria, polydipsia and goiter NEURO: No history of headaches, syncope, paralysis, seizures or tremors MOOD: Negative for depression, anxiety, or suicidal ideation. EXAM: BP 108/62 Pulse 100 Resp 16 Wt 107 kg (236 lb) LMP 09/27/2013 SpO2 98% BMI 44.59 kg/m PHYSICAL EXAM: General Appearance: Well appearing, alert, in no acute distress, well-hydrated, well nourished. Skin: Skin color, texture, turgor normal, no suspicious rashes or lesions. Head: Normocephalic, no masses, lesions, tenderness or abnormalities. Eyes: Anicteric sclera. Extraocular movements are intact. Neck: Supple, no adenopathy; thyroid symmetric, normal size, no bruits. Lungs: Lungs clear to auscultation. No wheezing, rhonchi, rales. Heart: RRR without murmur, gallop, or rubs. No ectopy. Extremities: No deformities, edema, skin discoloration, clubbing or cyanosis. Good capillary refill. Peripheral Pulses: Normal, Capillary refill <2secs, strong peripheral pulses, Pulses palpable. Neurologic: Gait normal. Sensation grossly intact. ASSESSMENT/PLAN: 1. Type 2 diabetes mellitus without complication, with long-term current use of insulin (HCC) - ICD9: 250.00, V58.67, ICD10: E11.9, Z79.4 (primary diagnosis) poorly controlled - Continue current medications - Follow up with Endocrinology in April. - Schedule appointments for Diabetic education and nutrition. - Work on eating low carb diet, increase protein/veggies, and get some form of exercise. - NOVOLOG FLEXPEN U-100 INSULIN ASPART 100 UNIT/ML (3 ML) SUBCUTANEOUS - BLOOD SUGAR DIAGNOSTIC STRIPS 2. Essential hypertension - ICD9: 401.9, ICD10: I10 - good control - Continue current medication(s) - Recommended regular aerobic exercise. - Goal of BP <130/80 - HYDROCHLOROTHIAZIDE 12.5 MG TABLET 3. Hypothyroidism, unspecified type - ICD9: 244.9, ICD10: E03.9 - Instructed patient on importance of taking on an empty stomach either first thing in the morning or at bedtime. - check labs in April - Make follow up appointment with Endocrinology. - continue current dose of Synthroid 300 mcg daily. Follow up in 3 months or sooner as needed. Discussed treatment plan and patient voices understanding. Patient's questions answered appropriately. Medications and potential side effects were discussed and patient voices understanding. Coco Waters APRN.ALEXEI This note was partially generated using [employer] voice recognition system. Note was reviewed for accuracy. There may be minor misspellings or grammar miscues with [employer] voice recognition. documented in this encounterC[facility]08-24-2022 Instructions* Patient Instructions* Gretchen Fox APRN.CNP - 03/14/2022 1:40 PM EDT SYNTHROID Take 100 mcg tab PLUS 200 mcg tab daily. Recheck your labs on April 25, 2022. TRESIBA Continue per current NOVOLOG Use 44 units with full meal. Use 10 units with a snack. If exercising after meal, use 38-40 units with that meal. START TRULICITY 0.75 once weekly documented in this encounterCleveland Clinic [facility]08-24-2022 History of Present illness Narrative* Gretchen Fox APRN.CNP - 03/14/2022 1:15 PM EDT OFFICE VISIT PROGRESS NOTE CC Leroy Tyler is a 56 year old female who presents today for blood sugar review, insulin dosing adjust. HPI PATIENT OF DR. 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 Will drink coffee. Then willeat again 12 noon - egg/ sausage link OR sandwich and water Snacks: PB crackers OR PB sandwich OR tunafish sandwich OR mini meal snacks Notices neuropathy symptoms bilateral feet. Numbness Does not take B12 with metformin Has hypothyroid, takes 150 + 200 mcg tab daily together. Rapid heart beat and fatigue Also feels 'shivery' Hair loss CURRENT DM MEDS TRESIBA 110 units daily NOVOLOG 47 units twice daily will take only once if eating 1 meal (patient either eats 1 or 2 mealsper day, does snack on crackers or salad) METFORMIN 500 mg 2 tabs BID SMBG Type of Monitor: Other Frequency of Monitorin-2 times a day BG Values: Breakfast: 168 (12 pm noon) Lunch: Dinner: 160 Bed-time: Values over past week: Highest 200; Lowest 53 (ate differently) Hypoglycemia: Diet: No specific diet regimen Exercise: water aerobics, DM REVIEW OF SYSTEMS Last Eye Exam : 02/2022 Last Podiatry Exam: due Cardiorespiratory: negative, denies chest pain, pressure Claudication: no Dyslipidemia: Yes, controlled on medication High Blood Pressure: Yes, controlled on medication CURRENT LABS Component Latest Ref Rng & Units 11/09/2021 Glucose 74 - 99 mg/dL 244 (H) BUN 7 - 21 mg/dL 14 Creatinine 0.58 - 0.96 mg/dL 0.49 (L) Sodium 136 - 144 mmol/L 134 (L) Potassium 3.7 - 5.1 mmol/L 4.6 Chloride 97 - 105 mmol/L 98 CO2 22 - 30 mmol/L 27 Anion Gap 9 - 18 mmol/L 9 Calcium 8.5 - 10.2 mg/dL 9.5 eGFR >=60 mL/min/1.73m 112 Hemoglobin A1C 4.3 - 5.6 % 10.7 (H) Estimated Average Glucose mg/dL 260 Component Latest Ref Rng & Units 09/18/2021 10/06/2021 11/09/2021 03/12/2022 Hemoglobin A1C 4.3 - 5.6 % 13.9 (H) 10.7 (H) 10.8 (H) Estimated Average Glucose mg/dL 352 260 263 TSH 0.270 - 4.200 mIU/L 4.350 (H) 4.050 0.067 (L) Free T4 0.9 - 1.7 ng/dL 1.2 PAST MEDICAL HISTORY Diagnosis Date Anemia Hypercholesteremia Mental disorder anxiety/depression Obesity Snoring Type II or unspecified type diabetes mellitus without mention of complication, not stated as uncontrolled Unspecified hypothyroidism Vomiting blood PAST SURGICAL HISTORY Procedure Laterality Date COLONOSCOPY FLX DX W/COLLJ SPEC WHEN PFRMD 04/01/2013 Colonoscopy COLONOSCOPY FLX DX W/COLLJ SPEC WHEN PFRMD 02/24/2018 Colonoscopy - 5 yr interval DILATION & CURETTAGE DX&/THER NONOBSTETRIC 10/2012 Dilation & curettage ESOPHAGOGASTRODUODENOSCOPY TRANSORAL DIAGNOSTIC 10/30/2013 EGD ESOPHAGOGASTRODUODENOSCOPY TRANSORAL DIAGNOSTIC 02/24/2018 EGD HYSTEROSCOPY BX W/WO D&C 12/30/2012 hysteroscopy D&C w mirena insertion INSERTION OF IUD 12/30/2012 LAPAROSCOPY SURG CHOLECYSTECTOMY 1990s Cholecystectomy, lap FAMILY HISTORY Problem Relation Age of Onset Breast Cancer Mother 63 Diabetes Mother Glaucoma Mother Cancer Father Heart disease Maternal Grandfather Stroke Paternal Grandmother Social History Tobacco Use Smoking status: Former Smoker Packs/day: 0.50 Years: 10.00 Pack years: 5.00 Types: Cigarettes Quit date: 05/29/2010 Years since quittin.7 Smokeless tobacco: Never Used Tobacco comment: one pack per week for 2 years Vaping Use Vaping Use: Never used Substance Use Topics Alcohol use: Yes Comment: occasionally Drug use: No Comment: marijuana in the past Current Outpatient Medications Medication Sig nystatin (MYCOSTATIN) 100,000 unit/mL suspension Take 5 mL by mouth four times daily. 1tsp swish inmouth for several minutes, then swallow (or expectorate) 4 times daily until gone. nystatin-triamcinolone (MYCOLOG) ointment Apply sparingly to chest rash twice daily for irritation/infection. insulin degludec (TRESIBA FLEXTOUCH U-200) 200 unit/mL (3 mL) injection Inject 110 Units subcutaneously every morning. blood sugar diagnostic test strip Use to check blood sugar three times daily. Dx: Type 2 DM - Uncontrolled E11.65 lisinopril 2.5 mg tablet Take 1 tablet by mouth once daily. atorvastatin (LIPITOR) 20 mg tablet Take 1 tablet by mouth once daily. metFORMIN ER (GLUCOPHAGE XR) 500 mg 24 hr tablet Take 2 tablets by mouth twice daily. NOVOLOG FLEXPEN U-100 INSULIN 100 unit/mL (3 mL) Inject 48 Units subcutaneously twice daily before meals. pioglitazone (ACTOS) 15 mg tablet Take 1 tablet by mouth once daily. Ciclopirox (LOPROX) 8 % solution APPLY TO AFFECTED AREA DAILY AT BEDTIME. TO AFFECTED AREA. urea (CARMOL) 40 % Apply to affected area twice daily. cholecalciferol, Vitamin D3, (VITAMIN D3) 1,250 mcg (50,000 unit) cap capsule Take 1 capsule by mouth one time a week. ferrous sulfate 325 mg (65 mg iron) tablet Take 1 tablet by mouth daily with breakfast. FLUoxetine HCl (PROZAC) 40 mg capsule Take 1 capsule by mouth once daily. hydroCHLOROthiazide (HYDRODIURIL, ESIDRIX) 12.5 mg tablet Take 1 tablet by mouth once daily. famotidine (PEPCID) 20 mg tablet Take 1 tablet by mouth twice daily. nystatin (NYSTOP) powder Apply 1 application to affected area four times daily. levothyroxine (SYNTHROID) 200 mcg tablet Take once daily in addition to 150 mcg for thyroid levothyroxine (SYNTHROID) 150 mcg tablet Take 1 tablet by mouth once daily. Take on empty stomach. For thyroid. Take along with 200 mcg dose insulin needles, DISPOSABLE, (PEN NEEDLE) 31 gauge x 5/16 Use one needle 3-4 times daily with insulin. E11.65 Insulin: Yes albuterol HFA (VENTOLIN HFA) 90 mcg/actuation inhaler Inhale 2 Puffs as instructed every 4 hours asneeded for Wheezing/Shortness of Breath. levonorgestrel (MIRENA) 20 mcg/24 hours (5 yrs) 52 mg IUD 1 Each by INTRAUTERINE route one time only. Blood-Glucose Meter misc Use to check blood sugar three times daily. Dx: Type 2 DM - Uncontrolled E11.65 Lancets lancets Use to check blood sugar three times daily. Dx: Type 2 DM - Uncontrolled E11.65 lidocaine (XYLOCAINE) 5 % ointment Apply 1 application to affected area as needed. ALCOHOL PREP PADS padm TEST BLOOD SUGARS 3 TIMES DAILY CPAP as directed. TENS unit and electrodes cmpk No current facility-administered medications for this visit. ALLERGIES Allergen Reactions Codeine Swelling Nitrofurantoin Swelling Penicillins Rash Sulfamethoxazole-Tr* Rash Blisters all over REVIEW OF SYSTEMS - POSITIVES IN BOLD GENERAL:No weight loss, malaise or fevers HEENT:Negative for frequent or significant headaches, No changes in hearing or vision, no nose bleeds or other nasal problems NECK:Negative for lumps, goiter, pain and significant neck swelling RESPIRATORY: Negative for cough, hemoptysis, wheezing, COPD, dyspnea or shortness of breath CARDIOVASCULAR: Negative for chest pain, leg swelling, hypertension, CHF or palpitations PHYSICAL EXAMINATION: BP (P) 110/62 (BP Site: Left Arm, BP Position: Sitting, BP Cuff Size: Large Adult) Pulse (P) 78 Wt 106.1 kg (234 lb) LMP 09/27/2013 BMI 44.21 kg/m GENERAL: alert and appropriate, in no distress and well-hydrated, well nourished SKIN: no rash noted HEAD: normocephalic, no abnormality or lesion noted EYES: PERRL NECK: full ROM, no cervical LNs noted ACANTHOSIS: none noted EXTREMITIES: normal NEUROLOGIC: no obvious deficit ASSESSMENT: (E11.65) Uncontrolled type 2 diabetes mellitus with hyperglycemia (HCC) (primary encounter diagnosis) Comment: poorly controlled DM2 secondary to knowledge deficit. RECOMMEND CONSULT TO DM ED and ENDO [employer] Consult placed RECOMMEND FOLLOWING CHANGES TRESIBA Continue per current NOVOLOG Use 44 units with full meal. Use 10 units with a snack. If exercising after meal, use 38-40 units with that meal. START TRULICITY 0.75 once weekly Recommended diet: Low carbohydrate and Low saturated fat, low simple sugar, high fiber diet Exercise minimally 150 minutes per week, increase as tolerated. Adequate hydration - 1/2 body wgt in oz of water daily, unless fluid restriction applies. I instructed the patient to monitor blood sugars 4 times per day If blood sugars are persistently high or low, to call our office. Patient to continue to follow up with her PCP and with other consultants regarding her other medical problems. Plan: COMP METABOLIC PANEL, LIPID PANEL, NONFASTING, ALBUMIN/CREAT RATIO RND UR, HGB A1C (E03.9) Hypothyroidism, unspecified type Comment: per labs, and reported sx - patient OVERsupplemented with SYNTHROID Take 100 mcg tab PLUS 200 mcg tab daily. Recheck your labs on April 25, 2022. Plan: CONSULT TO ENDOCRINOLOGY, levothyroxine (SYNTHROID) 200 mcg tablet, TSH BLD, T4 FREE/FREE THYROX, HGB A1C Gretchen Fox CNP documented in this encounterC[facility] History of Present illness Narrative* Melissa Cabrales, OD - 02/27/2022 4:17 PM EDT 1. Type 2 diabetes mellitus without retinopathy (HCC) Risk of diabetic changes and vision loss can be minimized by tight control of blood sugar, blood pressure, and cholesterol levels. Educated patient to continue care with primary care doctor and/or security chief museum to maintain optimum levels as they are important to avoid ocular complications. Encouraged patient to call the office immediately with any changes to vision or visual concerns. Advised to not wait until the next scheduled exam. 2. Regular astigmatism of both eyes 3. Presbyopia Unstable refraction Blood sugar elevated Repeat in 1 month 4. Dry eye syndrome of bilateral lacrimal glands 5. Punctate keratitis of right eye Decreased vision right eye-suspect from punctate keratitis? Recommended gel nightly and refresh/systane tears 2-3 times daily Follow-up in 1 month for refraction and dry eye follow-up Melissa Cabrales, OD February 27, 2022 4:17 PM documented in this encounterC[facility]08-09-2022 Instructions* Patient Instructions* Melissa Cabrales, OD - 02/27/2022 2:42 PM EDT Use Refresh relieva or Systane Complete 2-3 times daily Use Refresh or Systane gel before bedtime documented in this encounterC[facility]08-01-2022 Miscellaneous Notes* Telephone Encounter - Brianda Stapleton - 02/19/2022 8:39 AM EDT Patient given results and verbalized understanding of instructions given. Brianda Stapleton * Telephone Encounter - Ilsa Ramesh LPN - 02/17/2022 1:58 PM EDT Phone call placed brief message to contact a nurse. Ilsa Ramesh LPN * Telephone Encounter - Evangelist Bagley MD - 02/17/2022 10:41 AM EDT Vaginal swab was positive for yeast. Continue treatment as prescribed. Sugar control is important to help heal and avoid having yeast infections come back. documented in this encounterC[facility]07-29-2022 Instructions* Patient Instructions* Bia Jacinot APRN.DRILL HAND - 02/16/2022 12:49 PM EDT VAGINAL YEAST INFECTION What causes a yeast infection? A yeast infection is caused by several different fungi that normally grow in the body. (Yeast is a kind of fungus). A change in the chemical balance in the vagina allows the fungus to grow too rapidly and cause symptoms. Yeast infections most often occur in a woman's vagina. Yeast infections can occur in other parts ofthe body and in men. Though uncomfortable, yeast infections are not serious and can be cured. What are the symptoms of a yeast infection? Common symptoms: Intense vaginal itching Thick, odorless discharge (might resemble cottage cheese) Less common symptoms: Sore vagina Lower abdominal pain Vaginal rash Burning during urination Painful sex Why do yeast infections occur? All of the reasons why yeast infections occur are not yet understood. What is known is that conditions that usually control fungus can change, allowing the fungus to grow rapidly. Some factors that might cause yeast infections include: control pills Poor nutrition Antibiotic treatment Lack of sleep Diabetes Stress HIV\AIDS Can yeast infections recur? Yes. Yeast infections often recur. Some women find that they get yeast infections frequently. Do I need to see a doctor if I think I have a yeast infection? Vaginal discharges have several different causes. If you are fairly certain that you have a yeast infection, you can treat yourself. See your health care provider promptly if the symptoms do not improve. Creams and suppositories can be purchased from a drugstore and used to treat the infection. It's important to follow all of the directions on the product label. Sometimes yeast infections are treated with medicines taken by the mouth. These must be ordered by your health care provider. How can I help prevent yeast infections? Wear loose clothing made from natural fibers (cotton, linen, silk). Avoid wearing pantyhose, tights, or leggings. Avoid wearing tight pants. Don't douche. (Douching can kill bacteria that control fungus.) Limit use of feminine deodorant. Limit use of deodorant tampons or pads. Change out of wet clothing, especially bathing suits, as soon as you can. Avoid frequent hot tub baths. Wash underwear in hot water. Eat a well-balanced diet. Eat yogurt. Use acidophilus tablets. If you have diabetes, keep your blood sugar level as close to normal as possible. What if I have frequent yeast infections? See your health care provider and: Get a blood sugar test for diabetes Get tested for HIV/AIDS Copyright 5969-3407 The [facility]. All rights reserved. This information is provided by the [facility] and is not intended to replace the medical advice of your doctor or health care provider. Please consult your health care provider for advice about a specific medical condition. For additional written health information, please contact the [facility] at the [facility] or toll-free extension [phone]. This document was last reviewed on: 2004 index#[id number] documented in this encounterC[facility]07-29-2022 History of Present illness Narrative* Bia Jacinto APRN.ALEXEI - 02/16/2022 12:33 PM EDT This note was created using Favbuyriter. Subjective Leroy Tyler is a 56 year old female. 56 year old female with PMH HTN, hyperlipidemia, DM, thyroid presents with think I have yeast Acute onset a few days ago Rash States located under left breast region +itchy +red Denies prior history of rash in breast. Endorses her throat and mouth feel funny +redness Endorses she has been experiencing vaginal itching. States she has been out of her test strips, and is unsure what her sugars have been. States she is just completing ATB She also endorses she uses inhaler PRN. The history is provided by the patient. No electrical engineering technician was used. Rash This is a new problem. The current episode started in the past 7 days. The problem is unchanged. Location: left breast. The rash is characterized by redness and itchiness. She was exposed to nothing.Pertinent negatives include no anorexia, congestion, cough, diarrhea, eye pain, facial edema, fatigue, fever, joint pain, nail changes, rhinorrhea, shortness of breath, sore throat or vomiting. Past treatments include nothing. The treatment provided no relief. There is no history of allergies, asthma, eczema or varicella. PAST MEDICAL HISTORY Diagnosis Date Anemia Hypercholesteremia Mental disorder anxiety/depression Obesity Snoring Type II or unspecified type diabetes mellitus without mention of complication, not stated as uncontrolled Unspecified hypothyroidism Vomiting blood PAST SURGICAL HISTORY Procedure Laterality Date COLONOSCOPY FLX DX W/COLLJ SPEC WHEN PFRMD 04/01/2013 Colonoscopy COLONOSCOPY FLX DX W/COLLJ SPEC WHEN PFRMD 02/24/2018 Colonoscopy - 5 yr interval DILATION & CURETTAGE DX&/THER NONOBSTETRIC 10/2012 Dilation & curettage ESOPHAGOGASTRODUODENOSCOPY TRANSORAL DIAGNOSTIC 10/30/2013 EGD ESOPHAGOGASTRODUODENOSCOPY TRANSORAL DIAGNOSTIC 02/24/2018 EGD HYSTEROSCOPY BX W/WO D&C 12/30/2012 hysteroscopy D&C w mirena insertion INSERTION OF IUD 12/30/2012 LAPAROSCOPY SURG CHOLECYSTECTOMY 1990s Cholecystectomy, lap ALLERGIES Codeine, Nitrofurantoin, Penicillins, and Sulfamethoxazole-Trimethoprim MEDICATIONS nystatin (MYCOSTATIN) 100,000 unit/mL suspension Take 5 mL by mouth four times daily. 1tsp swish inmouth for several minutes, then swallow (or expectorate) 4 times daily until gone. nystatin-triamcinolone (MYCOLOG) ointment Apply sparingly to chest rash twice daily for irritation/infection. fluconazole (DIFLUCAN) 150 mg tablet Take 1 tablet by mouth once daily for 1 day. insulin degludec (TRESIBA FLEXTOUCH U-200) 200 unit/mL (3 mL) injection Inject 110 Units subcutaneously every morning. blood sugar diagnostic test strip Use to check blood sugar three times daily. Dx: Type 2 DM - Uncontrolled E11.65 lisinopril 2.5 mg tablet Take 1 tablet by mouth once daily. atorvastatin (LIPITOR) 20 mg tablet Take 1 tablet by mouth once daily. metFORMIN ER (GLUCOPHAGE XR) 500 mg 24 hr tablet Take 2 tablets by mouth twice daily. NOVOLOG FLEXPEN U-100 INSULIN 100 unit/mL (3 mL) Inject 48 Units subcutaneously twice daily before meals. pioglitazone (ACTOS) 15 mg tablet Take 1 tablet by mouth once daily. Ciclopirox (LOPROX) 8 % solution APPLY TO AFFECTED AREA DAILY AT BEDTIME. TO AFFECTED AREA. urea (CARMOL) 40 % Apply to affected area twice daily. cholecalciferol, Vitamin D3, (VITAMIN D3) 1,250 mcg (50,000 unit) cap capsule Take 1 capsule by mouth one time a week. ferrous sulfate 325 mg (65 mg iron) tablet Take 1 tablet by mouth daily with breakfast. FLUoxetine HCl (PROZAC) 40 mg capsule Take 1 capsule by mouth once daily. hydroCHLOROthiazide (HYDRODIURIL, ESIDRIX) 12.5 mg tablet Take 1 tablet by mouth once daily. famotidine (PEPCID) 20 mg tablet Take 1 tablet by mouth twice daily. nystatin (NYSTOP) powder Apply 1 application to affected area four times daily. levothyroxine (SYNTHROID) 200 mcg tablet Take once daily in addition to 150 mcg for thyroid levothyroxine (SYNTHROID) 150 mcg tablet Take 1 tablet by mouth once daily. Take on empty stomach. For thyroid. Take along with 200 mcg dose insulin needles, DISPOSABLE, (PEN NEEDLE) 31 gauge x 5/16 Use one needle 3-4 times daily with insulin. E11.65 Insulin: Yes albuterol HFA (VENTOLIN HFA) 90 mcg/actuation inhaler Inhale 2 Puffs as instructed every 4 hours asneeded for Wheezing/Shortness of Breath. levonorgestrel (MIRENA) 20 mcg/24 hours (5 yrs) 52 mg IUD 1 Each by INTRAUTERINE route one time only. Blood-Glucose Meter misc Use to check blood sugar three times daily. Dx: Type 2 DM - Uncontrolled E11.65 Lancets lancets Use to check blood sugar three times daily. Dx: Type 2 DM - Uncontrolled E11.65 lidocaine (XYLOCAINE) 5 % ointment Apply 1 application to affected area as needed. ALCOHOL PREP PADS padm TEST BLOOD SUGARS 3 TIMES DAILY CPAP as directed. TENS unit and electrodes cmpk FAMILY HISTORY Problem Relation Age of Onset Breast Cancer Mother 63 Diabetes Mother Glaucoma Mother Cancer Father Heart disease Maternal Grandfather Stroke Paternal Grandmother Social History Tobacco Use Smoking status: Former Smoker Packs/day: 0.50 Years: 10.00 Pack years: 5.00 Types: Cigarettes Quit date: 05/29/2010 Years since quittin.7 Smokeless tobacco: Never Used Tobacco comment: one pack per week for 2 years Vaping Use Vaping Use: Never used Substance Use Topics Alcohol use: Yes Comment: occasionally Drug use: No Comment: marijuana in the past Review of Systems Constitutional: Negative for activity change, appetite change, fatigue and fever. HENT: Negative for congestion, rhinorrhea and sore throat. Eyes: Negative for pain. Respiratory: Negative for apnea, cough, chest tightness and shortness of breath. Cardiovascular: Negative for chest pain, palpitations and leg swelling. Gastrointestinal: Negative for anorexia, diarrhea and vomiting. Musculoskeletal: Negative for arthralgias, back pain and joint pain. Skin: Positive for rash. Negative for color change, nail changes and pallor. Allergic/Immunologic: Negative for environmental allergies and food allergies. Neurological: Negative for dizziness, facial asymmetry, light-headedness and headaches. Hematological: Negative for adenopathy. Does not bruise/bleed easily. Psychiatric/Behavioral: Negative for agitation and behavioral problems. Objective BP 110/72 Pulse 91 Temp (!) 35.8 C (96.5 F) Resp 20 Wt 108.4 kg (239 lb) LMP 09/27/2013 SpO2 96% BMI 45.16 kg/m Physical Exam Vitals and nursing note reviewed. Constitutional: General: She is not in acute distress. Appearance: Normal appearance. She is normal weight. She is not ill-appearing, toxic-appearing or diaphoretic. HENT: Head: Normocephalic and atraumatic. Right Ear: Ear canal and external ear normal. Left Ear: Ear canal and external ear normal. Nose: Nose normal. No congestion or rhinorrhea. Mouth/Throat: Mouth: Mucous membranes are moist. Pharynx: Posterior oropharyngeal erythema (marked erythema of posterior oropharynx. ) present. No oropharyngeal exudate. Eyes: General: Right eye: No discharge. Left eye: No discharge. Extraocular Movements: Extraocular movements intact. Conjunctiva/sclera: Conjunctivae normal. Pupils: Pupils are equal, round, and reactive to light. Cardiovascular: Rate and Rhythm: Normal rate and regular rhythm. Pulses: Normal pulses. Heart sounds: Normal heart sounds. No murmur heard. No friction rub. Pulmonary: Effort: Pulmonary effort is normal. No respiratory distress. Breath sounds: Normal breath sounds. No stridor. No wheezing, rhonchi or rales. Chest: Chest wall: No tenderness. Abdominal: General: Abdomen is flat. There is no distension. Palpations: Abdomen is soft. There is no mass. Tenderness: There is no abdominal tenderness. There is no right CVA tenderness, left CVA tenderness, guarding or rebound. Hernia: No hernia is present. Genitourinary: Comments: Defers pelvic exam and requests self swab Musculoskeletal: General: No swelling, tenderness, deformity or signs of injury. Normal range of motion. Cervical back: Normal range of motion and neck supple. No rigidity. Right lower leg: No edema. Left lower leg: No edema. Lymphadenopathy: Cervical: No cervical adenopathy. Skin: General: Skin is warm and dry. Capillary Refill: Capillary refill takes less than 2 seconds. Coloration: Skin is not jaundiced or pale. Findings: Rash (+marked erythema and moisture noted under fold of left breast, NO petachia. NO abscess. NO red streaking ) present. No bruising, erythema or lesion. Neurological: General: No focal deficit present. Mental Status: She is alert and oriented to person, place, and time. Cranial Nerves: No cranial nerve deficit. Sensory: No sensory deficit. Motor: No weakness. Coordination: Coordination normal. Gait: Gait normal. Psychiatric: Mood and Affect: Mood normal. Behavior: Behavior normal. Thought Content: Thought content normal. Judgment: Judgment normal. Assessment and Plan ASSESSMENT/PLAN: 1. Pharyngitis, unspecified etiology - ICD9: 462, ICD10: J02.9 (primary diagnosis) - suspect fungal Fungal swab obtained RX Nystatin - The patient should follow up in 3-5 days if symptoms persist or worsen - Call back if drooling, increased temperature, symptoms of dehydration and/or still sick in one week - FUNGAL SCREEN 2. Rash, skin - ICD9: 782.1, ICD10: R21 Left breast fold Likely judie My colog cream provided - FUNGAL SCREEN - GLUCOSE, BLOOD (POC)-249 Discussed need to monitor sugars 3. Vaginal itching - ICD9: 698.1, ICD10: N89.8 ?? Yeast given recent ATB usage and DM Self swab X 1 Diflucan Bia Jacinto APRN.DRILL HAND documented in this encounterC[facility]07-[facility]22 Miscellaneous Notes* Telephone Encounter - Papa Douglass MD - 02/12/2022 3:34 PM EDT OK to refill as ordered Papa Douglass MD * Telephone Encounter - Shea Husain Ma - 02/12/2022 3:06 PM EDT Last Rx: 11/21/21 #63 mL 90 days, per med reconciliation. Shea Husain Ma * Telephone Encounter - Jocelyn Tadeo - 02/12/2022 2:56 PM EDT Patient has been identified by name and date of : Yes Pending Prescriptions Disp Refills TRESIBA FLEXTOUCH U-200 INSULIN 200 UNIT/ML (3 ML) SUBCUTANEOUS PEN Sig: Inject 110 Units subcutaneously every morning. GALINA: No RX INSTRUCTIONS: Patient needs this as soon as possible. She is requesting 30 day supply with refills. Patient aware RX will be sent to pharmacy. No need to notify patient. Jocelyn Cai Pss documented in this encounterC[facility]07-[facility]22 History of Present illness Narrative* Papa Douglass MD - 02/08/2022 2:00 PM EDT Chief Complaint Patient presents with: F/U 3 Month HPI Leroy Tyler is a 56 year old female who presents here today for 3 month follow up. Here today for a 3 month follow up. Admits that she's been off some of her medications due to a tragedy and emotional distress. GERD: sx controlled with Pepcid 20 mg 1 pill BID. DM: Has been following with Pharmacist, not seen since October. Has not been checking sugars for the past week due to running out of strips. Has not been taking medications. FBS prior to running out ranging from 300-400. Denies any hypoglycemic episodes. Reports neuropathy symptoms in her feet, but does have arthritis. Taking Metformin XR 500 mg 2 pills BID, Novolog 48 units BID + sliding scale, Actos 15 mg daily and Tresiba 110 units daily. Reports feeling unwell due to uncontrolled DM. Notes frequent urination more then likely related to her sugar being uncontrolled, causing some leg cramps. Notes some blurred vision with reading, drinking more water and feeling off balance. HTN: Taking HCTZ 12.5 mg daily and Lisinopril 2.5 mg daily. No chest pains, dizziness, or SOB. Doesnot check BP at home. Lipid: Taking Lipitor 20 mg daily. Has been watching diet, eating more fruits and vegetables. Drinking a lot of water. Exercises by swimming and stretches. KODI: Pt admits she needs to wear CPAP. States she's rebellious and doesn't do what she's supposed to do. Does work 3rd shift, which is hard as well. Thyroid: Taking Synthroid 150 mcg and 200 mcg daily. Reports missing dosages often, due to a lot going on. ABRAHAM/Depression - Admits that she needs to get back on her medication due to feeling stressed and depressed. She quit taking the Prozac 40 mg daily about a month ago when she had close friend pass away. States that she's went to therapy to fix things and notes that she's not doing well. She has not followed up with Counselor as of recently but does go intermittently. Reports arthritis every where. But she tries to do stretches to help from stiffening up. Past medical history, appointments, medications, allergies reviewed. Previous Medical History PAST MEDICAL HISTORY Diagnosis Date Anemia Hypercholesteremia Mental disorder anxiety/depression Obesity Snoring Type II or unspecified type diabetes mellitus without mention of complication, not stated as uncontrolled Unspecified hypothyroidism Vomiting blood Previous Surgical History PAST SURGICAL HISTORY Procedure Laterality Date COLONOSCOPY FLX DX W/COLLJ SPEC WHEN PFRMD 04/01/2013 Colonoscopy COLONOSCOPY FLX DX W/COLLJ SPEC WHEN PFRMD 02/24/2018 Colonoscopy - 5 yr interval DILATION & CURETTAGE DX&/THER NONOBSTETRIC 10/2012 Dilation & curettage ESOPHAGOGASTRODUODENOSCOPY TRANSORAL DIAGNOSTIC 10/30/2013 EGD ESOPHAGOGASTRODUODENOSCOPY TRANSORAL DIAGNOSTIC 02/24/2018 EGD HYSTEROSCOPY BX W/WO D&C 12/30/2012 hysteroscopy D&C w mirena insertion INSERTION OF IUD 12/30/2012 LAPAROSCOPY SURG CHOLECYSTECTOMY 1990s Cholecystectomy, lap Family History FAMILY HISTORY Problem Relation Age of Onset Breast Cancer Mother 63 Diabetes Mother Glaucoma Mother Cancer Father Heart disease Maternal Grandfather Stroke Paternal Grandmother Patient Allergies ALLERGIES Allergen Reactions Codeine Swelling Nitrofurantoin Swelling Penicillins Rash Sulfamethoxazole-Tr* Rash Blisters all over Current Medications Current Outpatient Medications on File Prior to Visit Medication Sig lisinopril 2.5 mg tablet Take 1 tablet by mouth once daily. atorvastatin (LIPITOR) 20 mg tablet Take 1 tablet by mouth once daily. metFORMIN ER (GLUCOPHAGE XR) 500 mg 24 hr tablet Take 2 tablets by mouth twice daily. NOVOLOG FLEXPEN U-100 INSULIN 100 unit/mL (3 mL) Inject 48 Units subcutaneously twice daily before meals. pioglitazone (ACTOS) 15 mg tablet Take 1 tablet by mouth once daily. insulin degludec (TRESIBA FLEXTOUCH U-200) 200 unit/mL (3 mL) injection Inject 110 Units subcutaneously every morning. Ciclopirox (LOPROX) 8 % solution APPLY TO AFFECTED AREA DAILY AT BEDTIME. TO AFFECTED AREA. urea (CARMOL) 40 % Apply to affected area twice daily. cholecalciferol, Vitamin D3, (VITAMIN D3) 1,250 mcg (50,000 unit) cap capsule Take 1 capsule by mouth one time a week. ferrous sulfate 325 mg (65 mg iron) tablet Take 1 tablet by mouth daily with breakfast. FLUoxetine HCl (PROZAC) 40 mg capsule Take 1 capsule by mouth once daily. hydroCHLOROthiazide (HYDRODIURIL, ESIDRIX) 12.5 mg tablet Take 1 tablet by mouth once daily. famotidine (PEPCID) 20 mg tablet Take 1 tablet by mouth twice daily. nystatin (NYSTOP) powder Apply 1 application to affected area four times daily. levothyroxine (SYNTHROID) 200 mcg tablet Take once daily in addition to 150 mcg for thyroid levothyroxine (SYNTHROID) 150 mcg tablet Take 1 tablet by mouth once daily. Take on empty stomach. For thyroid. Take along with 200 mcg dose insulin needles, DISPOSABLE, (PEN NEEDLE) 31 gauge x 5/16 Use one needle 3-4 times daily with insulin. E11.65 Insulin: Yes albuterol HFA (VENTOLIN HFA) 90 mcg/actuation inhaler Inhale 2 Puffs as instructed every 4 hours asneeded for Wheezing/Shortness of Breath. levonorgestrel (MIRENA) 20 mcg/24 hours (5 yrs) 52 mg IUD 1 Each by INTRAUTERINE route one time only. Blood-Glucose Meter misc Use to check blood sugar three times daily. Dx: Type 2 DM - Uncontrolled E11.65 blood sugar diagnostic test strip Use to check blood sugar three times daily. Dx: Type 2 DM - Uncontrolled E11.65 Lancets lancets Use to check blood sugar three times daily. Dx: Type 2 DM - Uncontrolled E11.65 lidocaine (XYLOCAINE) 5 % ointment Apply 1 application to affected area as needed. ALCOHOL PREP PADS padm TEST BLOOD SUGARS 3 TIMES DAILY CPAP as directed. TENS unit and electrodes cmpk No current facility-administered medications on file prior to visit. Social History Social History Tobacco Use Smoking status: Former Smoker Packs/day: 0.50 Years: 10.00 Pack years: 5.00 Types: Cigarettes Quit date: 05/29/2010 Years since quittin.7 Smokeless tobacco: Never Used Tobacco comment: one pack per week for 2 years Vaping Use Vaping Use: Never used Substance Use Topics Alcohol use: Yes Comment: occasionally Drug use: No Comment: marijuana in the past EXAM: BP 120/72 (BP Site: Left Arm, BP Position: Sitting, BP Cuff Size: Large Adult) Pulse 100 Resp 16 Wt 105.6 kg (232 lb 12.8 oz) LMP 09/27/2013 BMI 43.99 kg/m General Appearance: Well appearing, alert, in no acute distress, well-hydrated, well nourished. andObese. Neck: Supple, no adenopathy; thyroid symmetric, normal size, no bruits. Lungs: Lungs clear to auscultation. No wheezing, rhonchi, rales.. Heart: RRR without murmur, gallop, or rubs. No ectopy. Health Maintenance List HEPATITIS C SCREENING Never done HIV SCREENING Never done HEPATITIS B(1 of 3 - Risk 3-dose series) Never done PNEUMOCOCCAL(2 - PCV) due on 02/04/2013 SHINGRIX VACCINE(1 of 2) Never done COVID-19 VACCINE(3 - Booster for Pfizer series) due on 01/08/2021 URINE ALBUMIN:CREATININE RATIO due on 07/08/2021 DEPRESSION SCREENING due on 01/11/2022 DIABETIC FOOT EXAM due on 01/11/2022 DILATED RETINAL EXAM due on 02/09/2022 HBA1C due on 02/08/2022 INFLUENZA(1) due on 03/22/2022 LDL CHOLESTEROL due on 10/06/2022 MAMMOGRAM due on 10/09/2022 BP CONTROLLED (<130/80) due on 10/16/2022 ANNUAL PCP TEAM CHRONIC DISEASE VISIT due on 11/09/2022 PAP TESTING due on 11/22/2022 HPV TESTING due on 11/22/2022 COLORECTAL CANCER SCREENING due on 02/24/2023 DTAP,TDAP,TD(3 - Td or Tdap) due on 06/06/2028 Data reviewed None ASSESSMENT/PLAN: 1. Uncontrolled type 2 diabetes mellitus with hyperglycemia (HCC) - ICD9: 250.02, ICD10: E11.65 (primary diagnosis) uncontrolled - Continue current medications, check labs - Refer to Endo due to continued uncontrolled DM. - BLOOD SUGAR DIAGNOSTIC STRIPS - COMP METABOLIC PANEL - HGB A1C - CONSULT TO ENDOCRINOLOGY 2. Hypothyroidism, unspecified type - ICD9: 244.9, ICD10: E03.9 - Check labs in 1 month with f/u - Take medications routinely - CONSULT TO ENDOCRINOLOGY 3. Anxiety with depression - ICD9: 300.4, ICD10: F41.8 - Restart Prozac 40 mg daily - See Counselor 4. Mixed hyperlipidemia - ICD9: 272.2, ICD10: E78.2 - Recheck labs - Diet/exercise - COMP METABOLIC PANEL - LIPID PANEL BASIC 5. Essential hypertension - ICD9: 401.9, ICD10: I10 - good control - Continue current medication(s) - Recommended regular aerobic exercise. - Recommend home blood pressure monitoring, to bring results in on next visit - Goal of BP <130/80 - COMP METABOLIC PANEL - LIPID PANEL BASIC 6. Anemia, unspecified type - ICD9: 285.9, ICD10: D64.9 - Check CBC - Continue current medication regimen. 7. KODI (obstructive sleep apnea) - ICD9: 327.23, ICD10: G47.33 - Use CPAP 8. GERD without esophagitis - ICD9: 530.81, ICD10: K21.9 - Continue current medication regimen. 1 mo f/u with labs at that time. I agree with the Chief Complaint, ROS, and Past Histories independently gathered by the clinical community support associate and the remaining scribed note accurately describes my personal service to the patient. Medical Decision Making: Problems: Moderate: 1+ chronic illnesses with change and 2+ stable chronic illnesses Data: Unique test(s) ordered: 3+ Risk: Moderate: Drug management Medical Decision Making Level: 4 - Moderate Papa Douglass MD The documentation for this note was completed by Shea Husain Ma acting as scribe for Papa Douglass MD. February 08, 2022 2:18 PM. Sheatong Husain Ma documented in this encounterC[facility]04[facility] History of Present illness Narrative* Kiley Randall, [facility] [place] - 11/13/2021 1:00 PM EDT Primary Care Pharmacy Visit REASON FOR CONSULT: DM and Medication Reconciliation GOALS: A1c < 8% CONSULTING PROVIDER: Dr. Douglass Date of Consult: 10/06/21 Leroy Tyler is a 55 year old female presenting for follow up visit in person. Patient consents to pharmacy collaborative practice agreement. Last seen by PCP, Dr. Papa Douglass MD on 10/16/21. At last PCP appt, patient was instructed to complete labs and referred to pharmacy to resume DM follow up. At last PharmD visit on 10/16/21, pioglitazone was started. INTERIM HISTORY: Notes she has not started pioglitazone yet, continues to miss doses of insulin. Only taking 2 tabs of metformin most of the time Has started exercises, working on weight loss. Doing stretches and water aerobics Current DM Medications: Metformin ER 500 mg tabs - 1,000 mg BID - typically takes 2 daily Insulin degludec (Tresiba) 110 units daily insulin aspart (Novolog) 48 units twice daily before meals Pioglitazone 15 mg once daily Past DM medications: Januvia - pancreas issues and abdominal pain, levels up but not high enough for pancreatitis per patient Rybelsus - didn't like taste and GI side effects Trulicity - cost issues; states it worked well for her Favianic - never started d/t cost Preventative Medications: On VISHNU/ARB: Yes On Statin: Yes GLYCEMIC CONTROL: Glucometer present at visit: No SMBG s: Date Fasting AM 2 hr PP Before Lunch 2 hr PP Before Dinner 2 hr PP Bedtime 11/13 451 11/06 323 11/05 369 11/02 303 11/01 298 206 10/30 346 332 10/29 380 10/25 220 Hypoglycemia: denies ROS: Patient denies CP, SOB, ROY, blurred vision, dizziness or lightheadedness Patient denies nausea, vomiting, diarrhea, abdominal pain Patient denies symptoms of hypoglycemia (sweating, anxiety, palpitations, hunger, and tremor) Patient denies symptoms of hyperglycemia (polyuria, polydipsia, polyphagia) Patient denies potential medication adverse effects MEDICATIONS: Adherence: reports missed doses Pharmacy: [facility] [facility] [address] Rx coverage: [employer] Affordability: no issues Diabetes supplies: [employer] System: pill box, she travels with it ACTIVE PROBLEM LIST Type II Diabetes Mellitus, Uncontrolled Hypothyroidism History of Anemia Premenopausal Menorrhagia Cellulitis Mixed Hyperlipidemia Vitamin D Deficiency Anemia Vomiting Blood Colitis Bmi 45.0-49.9, Adult (Formerly [facility]) Occult Blood Positive Stool Irritability Essential Hypertension PAST MEDICAL HISTORY Diagnosis Date Anemia Hypercholesteremia Mental disorder anxiety/depression Obesity Snoring Type II or unspecified type diabetes mellitus without mention of complication, not stated as uncontrolled Unspecified hypothyroidism Vomiting blood ALLERGIES Allergen Reactions Codeine Swelling Nitrofurantoin Swelling Penicillins Rash Sulfamethoxazole-Tr* Rash Blisters all over Current Outpatient Medications Medication Sig NOVOLOG FLEXPEN U-100 INSULIN 100 unit/mL (3 mL) Inject 48 Units subcutaneously twice daily before meals. pioglitazone (ACTOS) 15 mg tablet Take 1 tablet by mouth once daily. insulin degludec (TRESIBA FLEXTOUCH U-200) 200 unit/mL (3 mL) injection Inject 110 Units subcutaneously every morning. Ciclopirox (LOPROX) 8 % solution APPLY TO AFFECTED AREA DAILY AT BEDTIME. TO AFFECTED AREA. urea (CARMOL) 40 % Apply to affected area twice daily. cholecalciferol, Vitamin D3, (VITAMIN D3) 1,250 mcg (50,000 unit) cap capsule Take 1 capsule by mouth one time a week. ferrous sulfate 325 mg (65 mg iron) tablet Take 1 tablet by mouth daily with breakfast. FLUoxetine HCl (PROZAC) 40 mg capsule Take 1 capsule by mouth once daily. hydroCHLOROthiazide (HYDRODIURIL, ESIDRIX) 12.5 mg tablet Take 1 tablet by mouth once daily. famotidine (PEPCID) 20 mg tablet Take 1 tablet by mouth twice daily. metFORMIN ER (GLUCOPHAGE XR) 500 mg 24 hr tablet Take 2 tablets by mouth twice daily. nystatin (NYSTOP) powder Apply 1 application to affected area four times daily. levothyroxine (SYNTHROID) 200 mcg tablet Take once daily in addition to 150 mcg for thyroid levothyroxine (SYNTHROID) 150 mcg tablet Take 1 tablet by mouth once daily. Take on empty stomach. For thyroid. Take along with 200 mcg dose insulin needles, DISPOSABLE, (PEN NEEDLE) 31 gauge x 5/16 Use one needle 3-4 times daily with insulin. E11.65 Insulin: Yes albuterol HFA (VENTOLIN HFA) 90 mcg/actuation inhaler Inhale 2 Puffs as instructed every 4 hours asneeded for Wheezing/Shortness of Breath. atorvastatin (LIPITOR) 20 mg tablet Take 1 tablet by mouth once daily. lisinopril 2.5 mg tablet Take 1 tablet by mouth once daily. levonorgestrel (MIRENA) 20 mcg/24 hours (5 yrs) 52 mg IUD 1 Each by INTRAUTERINE route one time only. Blood-Glucose Meter misc Use to check blood sugar three times daily. Dx: Type 2 DM - Uncontrolled E11.65 blood sugar diagnostic test strip Use to check blood sugar three times daily. Dx: Type 2 DM - Uncontrolled E11.65 Lancets lancets Use to check blood sugar three times daily. Dx: Type 2 DM - Uncontrolled E11.65 lidocaine (XYLOCAINE) 5 % ointment Apply 1 application to affected area as needed. ALCOHOL PREP PADS padm TEST BLOOD SUGARS 3 TIMES DAILY CPAP as directed. TENS unit and electrodes cmpk No current facility-administered medications for this visit. EXAM: Last 3 Encounter BP Readings: Date: BP: 10/16/2021 108/70 10/06/2021 132/80 09/29/2021 116/78 Wt: 107.4 kg (236 lb 12.8 oz) BMI: 44.74 kg/(m^2) LABS: Lab Results Component Value Date HBA1C 10.7 11/09/2021 HBA1C 13.9 10/06/2021 HBA1C 6.5 06/08/2021 HBA1C 7.0 04/05/2021 HBA1C 13.8 01/10/2021 CMP: Glucose 244 11/09/2021 BUN 14 11/09/2021 Creatinine 0.49 11/09/2021 Sodium 134 11/09/2021 Potassium 4.6 11/09/2021 Chloride 98 11/09/2021 CO2 27 11/09/2021 Protein, Total 8.4 10/06/2021 Albumin 3.8 10/06/2021 Calcium 9.5 11/09/2021 Alkaline Phosphatase 168 10/06/2021 Bilirubin, Total 0.5 10/06/2021 AST 68 10/06/2021 ALT 42 10/06/2021 Serum creatinine: 0.49 mg/dL (L) 11/09/21 1439 Estimated creatinine clearance: 148.4 mL/min (A) No results found for: B12 Lab Results Component Value Date CHOL 167 10/06/2021 CHOL 160 04/05/2021 LDL 73 10/06/2021 LDL 88 04/05/2021 HDL 28 10/06/2021 HDL 30 04/05/2021 TG 330 10/06/2021 TG 210 04/05/2021 The 10-year ASCVD risk score (Bettie MUNIZ Jr., et al., 2013) is: 5.3% Values used to calculate the score: Age: 55 years Sex: Female Is Non- : No Diabetic: Yes Tobacco smoker: No Systolic Blood Pressure: 108 mmHg Is BP treated: Yes HDL Cholesterol: 28 mg/dL Total Cholesterol: 167 mg/dL Albumin/Creat Ratio (mg/g) Date Value 07/08/2020 126 (H) PHARMACOTHERAPY ASSESSMENT/PLAN: 1. Type 2 diabetes mellitus without complication, with long-term current use of insulin ([facility]) - ICD9: 250.00, V58.67, ICD10: E11.9, Z79.4 A1c goal < 8%; not at goal (last A1c 13.9%); SMBG elevated on current regimen. Patient has not tolerated DDP4 inh and GLP1 RA due to ADEs. Pt is not a candidate for SGLT2 inh due to recurrent UTIs. She has not started pioglitazone as prescribed, advised her to begin regimen and also added sliding scale for improved BG control due to elevated readings. Encouraged to take metformin as prescribed. Stressed importance of adherence to regimen. Renal function and LFTs appropriate for continued use START Pioglitazone 15 mg once daily ADD sliding scale to Novolog 48 units twice daily before meals Add 0 units if BS (blood sugar) is between 70-150 Add 2 units if BS is between 151-200 Add 4 units if BS is between 201-250 Add 6 units if BS is between 251-300 Add 8 units if BS is between 301-350 Add 10 units if BS is between 351-400 BS > 400 , call your physician CONTINUE Tresiba 110 units daily INCREASE Metformin 500 mg - 2 tablets twice daily as prescribed - LISINOPRIL 2.5 MG TABLET - ATORVASTATIN 20 MG TABLET - METFORMIN ER 500 MG TABLET,EXTENDED RELEASE 24 HR Follow up: Patient is scheduled to see PCP on 02/08/22. Patient to follow up with PharmD on 12/11/21. Patient verbalized understanding of instructions. Kiley Randall PharmD, BCACP Primary Care Clinical Pharmacist [facility] The majority of the pharmacy visit (> 50%) was spent counseling and/or coordinating care for thepatient. [Face to Face] time was 22 minutes. documented in this encounterC[facility]04-25-2022 Instructions* Patient Instructions* Kiley Randall RPh - 11/13/2021 1:00 PM EDT START Pioglitazone 15 mg once daily ADD sliding scale to Novolog 48 units twice daily before meals Add 0 units if BS (blood sugar) is between 70-150 Add 2 units if BS is between 151-200 Add 4 units if BS is between 201-250 Add 6 units if BS is between 251-300 Add 8 units if BS is between 301-350 Add 10 units if BS is between 351-400 BS > 400 , call your physician CONTINUE Tresiba 110 units daily INCREASE Metformin 500 mg - 2 tablets twice daily documented in this encounterC[facility]04-21-2022 History of Present illness Narrative* Papa Douglass MD - 11/09/2021 2:07 PM EDT Chief Complaint No chief complaint on file. HPI Leroy Tyler is a 55 year old female who presents here today for a follow up. Pt walked into office today stating that she needed a follow up visit. According to our records pt was just seen on 10/06/21 and advised to f/u in 3 months. She was referred to Pharmacy for her uncontrolled sugars, which she was seen on 10/16/21. Past medical history, appointments, medications, allergies reviewed. Previous Medical History PAST MEDICAL HISTORY Diagnosis Date Anemia Hypercholesteremia Mental disorder anxiety/depression Obesity Snoring Type II or unspecified type diabetes mellitus without mention of complication, not stated as uncontrolled Unspecified hypothyroidism Vomiting blood Previous Surgical History PAST SURGICAL HISTORY Procedure Laterality Date COLONOSCOPY FLX DX W/COLLJ SPEC WHEN PFRMD 04/01/2013 Colonoscopy COLONOSCOPY FLX DX W/COLLJ SPEC WHEN PFRMD 02/24/2018 Colonoscopy - 5 yr interval DILATION & CURETTAGE DX&/THER NONOBSTETRIC 10/2012 Dilation & curettage ESOPHAGOGASTRODUODENOSCOPY TRANSORAL DIAGNOSTIC 10/30/2013 EGD ESOPHAGOGASTRODUODENOSCOPY TRANSORAL DIAGNOSTIC 02/24/2018 EGD HYSTEROSCOPY BX W/WO D&C 12/30/2012 hysteroscopy D&C w mirena insertion INSERTION OF IUD 12/30/2012 LAPAROSCOPY SURG CHOLECYSTECTOMY 1990s Cholecystectomy, lap Family History FAMILY HISTORY Problem Relation Age of Onset Breast Cancer Mother 63 Diabetes Mother Glaucoma Mother Cancer Father Heart disease Maternal Grandfather Stroke Paternal Grandmother Patient Allergies ALLERGIES Allergen Reactions Codeine Swelling Nitrofurantoin Swelling Penicillins Rash Sulfamethoxazole-Tr* Rash Blisters all over Current Medications Current Outpatient Medications on File Prior to Visit Medication Sig NOVOLOG FLEXPEN U-100 INSULIN 100 unit/mL (3 mL) Inject 48 Units subcutaneously twice daily before meals. pioglitazone (ACTOS) 15 mg tablet Take 1 tablet by mouth once daily. insulin degludec (TRESIBA FLEXTOUCH U-200) 200 unit/mL (3 mL) injection Inject 110 Units subcutaneously every morning. Ciclopirox (LOPROX) 8 % solution APPLY TO AFFECTED AREA DAILY AT BEDTIME. TO AFFECTED AREA. urea (CARMOL) 40 % Apply to affected area twice daily. cholecalciferol, Vitamin D3, (VITAMIN D3) 1,250 mcg (50,000 unit) cap capsule Take 1 capsule by mouth one time a week. ferrous sulfate 325 mg (65 mg iron) tablet Take 1 tablet by mouth daily with breakfast. FLUoxetine HCl (PROZAC) 40 mg capsule Take 1 capsule by mouth once daily. hydroCHLOROthiazide (HYDRODIURIL, ESIDRIX) 12.5 mg tablet Take 1 tablet by mouth once daily. famotidine (PEPCID) 20 mg tablet Take 1 tablet by mouth twice daily. metFORMIN ER (GLUCOPHAGE XR) 500 mg 24 hr tablet Take 2 tablets by mouth twice daily. nystatin (NYSTOP) powder Apply 1 application to affected area four times daily. levothyroxine (SYNTHROID) 200 mcg tablet Take once daily in addition to 150 mcg for thyroid levothyroxine (SYNTHROID) 150 mcg tablet Take 1 tablet by mouth once daily. Take on empty stomach. For thyroid. Take along with 200 mcg dose insulin needles, DISPOSABLE, (PEN NEEDLE) 31 gauge x 5/16 Use one needle 3-4 times daily with insulin. E11.65 Insulin: Yes albuterol HFA (VENTOLIN HFA) 90 mcg/actuation inhaler Inhale 2 Puffs as instructed every 4 hours asneeded for Wheezing/Shortness of Breath. atorvastatin (LIPITOR) 20 mg tablet Take 1 tablet by mouth once daily. lisinopril 2.5 mg tablet Take 1 tablet by mouth once daily. levonorgestrel (MIRENA) 20 mcg/24 hours (5 yrs) 52 mg IUD 1 Each by INTRAUTERINE route one time only. Blood-Glucose Meter misc Use to check blood sugar three times daily. Dx: Type 2 DM - Uncontrolled E11.65 blood sugar diagnostic test strip Use to check blood sugar three times daily. Dx: Type 2 DM - Uncontrolled E11.65 Lancets lancets Use to check blood sugar three times daily. Dx: Type 2 DM - Uncontrolled E11.65 lidocaine (XYLOCAINE) 5 % ointment Apply 1 application to affected area as needed. ALCOHOL PREP PADS padm TEST BLOOD SUGARS 3 TIMES DAILY CPAP as directed. TENS unit and electrodes cmpk No current facility-administered medications on file prior to visit. Social History Social History Tobacco Use Smoking status: Former Smoker Packs/day: 0.50 Years: 10.00 Pack years: 5.00 Types: Cigarettes Quit date: 05/29/2010 Years since quittin.4 Smokeless tobacco: Never Used Tobacco comment: one pack per week for 2 years Vaping Use Vaping Use: Never used Substance Use Topics Alcohol use: Yes Comment: occasionally Drug use: No Comment: marijuana in the past EXAM: LMP 09/27/2013 Health Maintenance List SHINGRIX VACCINE(1 of 2) Never done COVID-19 VACCINE(3 - Booster for Pfizer series) due on 01/08/2021 URINE ALBUMIN:CREATININE RATIO due on 07/08/2021 HEPATITIS C SCREENING due on 01/11/2022 HIV SCREENING due on 01/11/2022 HBA1C due on 01/06/2022 DIABETIC FOOT EXAM due on 01/11/2022 DEPRESSION SCREENING due on 01/11/2022 DILATED RETINAL EXAM due on 02/09/2022 INFLUENZA(Season Ended) due on 03/22/2022 LDL CHOLESTEROL due on 10/06/2022 ANNUAL PCP TEAM CHRONIC DISEASE VISIT due on 10/06/2022 MAMMOGRAM due on 10/09/2022 BP CONTROLLED (<130/80) due on 10/16/2022 PAP TESTING due on 11/22/2022 HPV TESTING due on 11/22/2022 COLORECTAL CANCER SCREENING due on 02/24/2023 DTAP,TDAP,TD(3 - Td or Tdap) due on 06/06/2028 ONE PNEUMOVAX PRIOR TO AGE 65 Completed MENINGOCOCCAL CONJUGATE Aged Out Data reviewed No visit was done today Papa Douglass MD documented in this encounterC[facility]03-28-2022 Instructions* Patient Instructions* Sasha Schroeder APRN.CNP - 10/16/2021 12:28 PM EDT Naprosyn one tablet twice a day for 2 weeks Tylenol (generic acetaminophen) 500 mg-2 tabs every 8 hrs. as needed pain Xrays were completed and interpreted by the radiologist as negative for acute bony abnormality. documented in this encounterC[facility]03-28-2022 History of Present illness Narrative* Leroy Tobar RT(R) - 10/16/2021 11:30 AM EDT Radiology Service Progress Note PATIENT NAME: Leroy Tyler DATE OF SERVICE: October 16, 2021 TIME: 11:27 AM PATIENT IDENTITY VERIFICATION COMPLETED USING TWO (2) IDENTIFIERS: Name and Date of confirmedby patient verbally. FALL SCREENING: Has the patient had 2 falls in the last year or 1 fall with injury or currently using an Ambulatory Assistive Device (Walker, Cane, Wheelchair, Crutches, etc.)? No PATIENT GENDER DATA: Female. status: : No status: NO. PATIENT RELEVANT IMPLANT DATA REVIEWED: Not Applicable RADIOLOGY DEPARTMENT: General X-ray: Exam(s) Completed: Upper Extremity X- Ray(s): Hand, left PERIPHERAL IV DATA: Not applicable SIGNED BY: RT Sarah(R) October 16, 2021 11:27 AM documented in this encounterC[facility]03-28-2022 History of Present illness Narrative* Sasha Schroeder APRN.DRILL HAND - 10/16/2021 11:17 AM EDT Subjective HPI HPI Leroy Tyler is a 55 year old female who presents today for CC of left hand pain, mainly in pinkie pip, distal phalange, and 4, 5 metacarpal joint. This started after she squeezed her hand. She has not used any treatment or medications. BP 108/70 Pulse 102 Temp 36.6 C (97.8 F) Resp 20 Wt 107.4 kg (236 lb 12.8 oz) LMP 09/27/2013 SpO2 96% BMI 44.74 kg/m Social History Tobacco Use Smoking status: Former Smoker Packs/day: 0.50 Years: 10.00 Pack years: 5.00 Types: Cigarettes Quit date: 05/29/2010 Years since quittin.3 Smokeless tobacco: Never Used Tobacco comment: one pack per week for 2 years Vaping Use Vaping Use: Never used Substance Use Topics Alcohol use: Yes Comment: occasionally Drug use: No Comment: marijuana in the past PAST MEDICAL HISTORY Diagnosis Date Anemia Hypercholesteremia Mental disorder anxiety/depression Obesity Snoring Type II or unspecified type diabetes mellitus without mention of complication, not stated as uncontrolled Unspecified hypothyroidism Vomiting blood I have confirmed and edited as necessary, the [facility] Review of Systems Constitutional: Negative for chills and fever. Musculoskeletal: Positive for joint pain (left hand, 4,5 metacarpal joint, pinky, ). Negative for myalgias. Skin: Negative for itching and rash. All other systems reviewed and are negative. Objective Physical Exam Vitals and nursing note reviewed. Cardiovascular: Pulses: Radial pulses are 2+ on the right side and 2+ on the left side. Pulmonary: Effort: Pulmonary effort is normal. Musculoskeletal: Right hand: Normal. Left hand: Swelling, tenderness and bony tenderness present. Comments: Pinky, in PIP distal phalange, 5th metacarpal Skin: General: Skin is warm and dry. Neurological: Mental Status: She is alert and oriented to person, place, and time. Sensory: Sensation is intact. Psychiatric: Mood and Affect: Affect normal. ASSESSMENT/PLAN: 1. Left hand pain - ICD9: 729.5, ICD10: M79.642 Degenerative changes on xray Naproxen as ordered Follow up with PCP as needed for care home management - XR HAND GENERAL 3V PA/LAT/OBL LEFT FINDINGS: No acute fractures or subluxations are noted. There are degenerative changes involving the DIP joints in the second and third digits. The joint spaces are otherwise preserved. Tiny accessory bones versus soft tissue calcifications along the PIP joints in the third and fifth digits. The mineralization of the bones is normal. There is no significant soft tissue swelling. IMPRESSION: Findings as described above. Interpreted by : LINN DARDEN MD Diagnosis and treatment plan were discussed and questions were answered to the patient's satisfaction. Pt acknowledged understanding of concepts and follow up plan. Specific signs and symptoms that would indicate the need for higher level of care were discussed indetail warranting prompt ER evaluation. Sasha Schroeder APRN.ALEXEI documented in this encounterC[facility]-28-[facility] History of Present illness Narrative* Kiley Randall, [facility] - 10/16/2021 10:00 AM EDT Primary Care Pharmacy Visit REASON FOR CONSULT: DM and Medication Reconciliation GOALS: A1c < 8% CONSULTING PROVIDER: Dr. Douglass Date of Consult: 10/06/21 Leroy Tyler is a 55 year old female presenting for follow up visit in person. Patient consents to pharmacy collaborative practice agreement. Last seen by PCP, Dr. Papa Douglass MD on 10/16/21. At last PCP appt, patient was instructed to complete labs and referred to pharmacy to resume DM follow up. INTERIM HISTORY: Patient presented 11 minutes past appt time Was seen in hospital for elevated blood sugar readings. Reports they needed to change fast acting insulin to Novolog due to insurance change Feels appetite has decreased. Most days will have 1 - 2 meals, mostly one lately. Only takes meal time insulin with one meal. Often takes metformin only 1 tab BID instead of 2 tabs BID -states she is unsure why she lowers dose, denies ADEs Current DM Medications: Metformin ER 500 mg tabs - 1,000 mg BID - Mostly taking one tablet BID Insulin degludec (Tresiba) 100 units daily - Taking differently: 120 units of Tresiba Insulin lispro (Humalog) 46 units twice daily before meals - Switched to Novolog brand Past DM medications: Januvia - pancreas issues and abdominal pain, levels up but not high enough for pancreatitis per patient Rybelsus - didn't like taste and GI side effects Trulicity - cost issues; states it worked well for her Staci - never started d/t cost Preventative Medications: On VISHNU/ARB: Yes On Statin: Yes GLYCEMIC CONTROL: Glucometer present at visit: Yes SMBG s: Date Fasting AM 2 hr PP Before Lunch 2 hr PP Before Dinner 2 hr PP Bedtime 10/15 292 10/14 297 227 84 10/12 297 10/11 406 333 10/10 10/04 358 10/01 490 09/30 397 Hypoglycemia: denies ROS: Patient denies CP, SOB, ROY, blurred vision, dizziness or lightheadedness Patient denies nausea, vomiting, diarrhea, abdominal pain Patient denies symptoms of hypoglycemia (sweating, anxiety, palpitations, hunger, and tremor) Patient denies symptoms of hyperglycemia (polyuria, polydipsia, polyphagia) Patient denies potential medication adverse effects MEDICATIONS: Adherence: reports missed doses, only taking bolus insulin once daily Pharmacy: [facility] [address] Rx coverage: [employer] Affordability: no issues Diabetes supplies: [employer] System: pill box, she travels with it ACTIVE PROBLEM LIST Type II Diabetes Mellitus, Uncontrolled Hypothyroidism History of Anemia Premenopausal Menorrhagia Cellulitis Mixed Hyperlipidemia Vitamin D Deficiency Anemia Vomiting Blood Colitis Bmi 45.0-49.9, Adult (Hcc) Occult Blood Positive Stool Irritability Essential Hypertension PAST MEDICAL HISTORY Diagnosis Date Anemia Hypercholesteremia Mental disorder anxiety/depression Obesity Snoring Type II or unspecified type diabetes mellitus without mention of complication, not stated as uncontrolled Unspecified hypothyroidism Vomiting blood ALLERGIES Allergen Reactions Codeine Swelling Nitrofurantoin Swelling Penicillins Rash Sulfamethoxazole-Tr* Rash Blisters all over Current Outpatient Medications Medication Sig Ciclopirox (LOPROX) 8 % solution APPLY TO AFFECTED AREA DAILY AT BEDTIME. TO AFFECTED AREA. tiZANidine (ZANAFLEX) 4 mg tablet Take 1 tablet by mouth every 8 hours as needed (muscle spasms). insulin lispro (HUMALOG KWIKPEN INSULIN) 100 unit/mL Inject 46 Units subcutaneously twice daily with meals. urea (CARMOL) 40 % Apply to affected area twice daily. cholecalciferol, Vitamin D3, (VITAMIN D3) 1,250 mcg (50,000 unit) cap capsule Take 1 capsule by mouth one time a week. insulin degludec (TRESIBA FLEXTOUCH U-200) 200 unit/mL (3 mL) injection Inject 100 Units subcutaneously every morning. ferrous sulfate 325 mg (65 mg iron) tablet Take 1 tablet by mouth daily with breakfast. FLUoxetine HCl (PROZAC) 40 mg capsule Take 1 capsule by mouth once daily. hydroCHLOROthiazide (HYDRODIURIL, ESIDRIX) 12.5 mg tablet Take 1 tablet by mouth once daily. famotidine (PEPCID) 20 mg tablet Take 1 tablet by mouth twice daily. metFORMIN ER (GLUCOPHAGE XR) 500 mg 24 hr tablet Take 2 tablets by mouth twice daily. nystatin (NYSTOP) powder Apply 1 application to affected area four times daily. levothyroxine (SYNTHROID) 200 mcg tablet Take once daily in addition to 150 mcg for thyroid levothyroxine (SYNTHROID) 150 mcg tablet Take 1 tablet by mouth once daily. Take on empty stomach. For thyroid. Take along with 200 mcg dose insulin needles, DISPOSABLE, (PEN NEEDLE) 31 gauge x 5/16 Use one needle 3-4 times daily with insulin. E11.65 Insulin: Yes albuterol HFA (VENTOLIN HFA) 90 mcg/actuation inhaler Inhale 2 Puffs as instructed every 4 hours asneeded for Wheezing/Shortness of Breath. atorvastatin (LIPITOR) 20 mg tablet Take 1 tablet by mouth once daily. lisinopril 2.5 mg tablet Take 1 tablet by mouth once daily. levonorgestrel (MIRENA) 20 mcg/24 hours (5 yrs) 52 mg IUD 1 Each by INTRAUTERINE route one time only. Blood-Glucose Meter misc Use to check blood sugar three times daily. Dx: Type 2 DM - Uncontrolled E11.65 blood sugar diagnostic test strip Use to check blood sugar three times daily. Dx: Type 2 DM - Uncontrolled E11.65 Lancets lancets Use to check blood sugar three times daily. Dx: Type 2 DM - Uncontrolled E11.65 lidocaine (XYLOCAINE) 5 % ointment Apply 1 application to affected area as needed. ALCOHOL PREP PADS padm TEST BLOOD SUGARS 3 TIMES DAILY CPAP as directed. TENS unit and electrodes cmpk No current facility-administered medications for this visit. EXAM: Last 3 Encounter BP Readings: Date: BP: 10/06/2021 132/80 09/29/2021 116/78 09/19/2021 90/60 Wt: 106.8 kg (235 lb 6.4 oz) BMI: 44.48 kg/(m^2) LABS: Lab Results Component Value Date HBA1C 13.9 10/06/2021 HBA1C 6.5 06/08/2021 HBA1C 7.0 04/05/2021 HBA1C 13.8 01/10/2021 CMP: Glucose 350 10/06/2021 BUN 14 10/06/2021 Creatinine 0.58 10/06/2021 Sodium 130 10/06/2021 Potassium 4.4 10/06/2021 Chloride 94 10/06/2021 CO2 28 10/06/2021 Protein, Total 8.4 10/06/2021 Albumin 3.8 10/06/2021 Calcium 9.6 10/06/2021 Alkaline Phosphatase 168 10/06/2021 Bilirubin, Total 0.5 10/06/2021 AST 68 10/06/2021 ALT 42 10/06/2021 Serum creatinine: 0.58 mg/dL 10/06/21 1120 Estimated creatinine clearance: 125 mL/min No results found for: B12 Lab Results Component Value Date CHOL 167 10/06/2021 CHOL 160 04/05/2021 LDL 73 10/06/2021 LDL 88 04/05/2021 HDL 28 10/06/2021 HDL 30 04/05/2021 TG 330 10/06/2021 TG 210 04/05/2021 The 10-year ASCVD risk score (Bettie MUNIZ Jr., et al., 2013) is: 7.9% Values used to calculate the score: Age: 55 years Sex: Female Is Non- : No Diabetic: Yes Tobacco smoker: No Systolic Blood Pressure: 132 mmHg Is BP treated: Yes HDL Cholesterol: 28 mg/dL Total Cholesterol: 167 mg/dL Albumin/Creat Ratio (mg/g) Date Value 07/08/2020 126 (H) PHARMACOTHERAPY ASSESSMENT/PLAN: 1. Type 2 diabetes mellitus without complication, with long-term current use of insulin ([facility]) - ICD9: 250.00, V58.67, ICD10: E11.9, Z79.4 A1c goal < 8%; not at goal (last A1c 13.9%); SMBG elevated on current regimen. Patient has not tolerated DDP4 inh and GLP1 RA due to ADEs. Pt is not a candidate for SGLT2 inh due to recurrent UTIs. Today, will add pioglitazone for improved BG control. Also encouraged patient to take metformin asprescribed. Adjusted basal insulin dose and switched bolus insulin to reflect current brand that patient is taking. Discussed importance of consistently taking medications and monitoring BG readings.Renal function and LFTs appropriate for continued use Start pioglitazone 15 mg once daily Change to insulin aspart (Novolog) 48 units 2 times daily before meals Change Insulin degludec (Tresiba) 110 units once daily Continue metformin Discussed increasing to prescribed dose if able to tolerate HbA1c: due 01/06/22 - NOVOLOG FLEXPEN U-100 INSULIN ASPART 100 UNIT/ML (3 ML) SUBCUTANEOUS - PIOGLITAZONE 15 MG TABLET - TRESIBA FLEXTOUCH U-200 INSULIN 200 UNIT/ML (3 ML) SUBCUTANEOUS PEN Follow up: Patient is scheduled to see DRILL HAND on 01/13/22. Patient to follow up with PharmD on 11/13/21. Patient verbalized understanding of instructions. Kiley Randall PharmD, BCACP Primary Care Clinical Pharmacist [facility] The majority of the pharmacy visit (> 50%) was spent counseling and/or coordinating care for thepatient. [Face to Face] time was 27 minutes. documented in this encounterC[facility]03-28-2022 Instructions* Patient Instructions* Kiley Randall RPh - 10/16/2021 10:00 AM EDT Start pioglitazone 15 mg once daily Change Novolog to 48 units 2 times daily before meals Change Tresiba to 110 units once daily Continue metformin, if able please increase to 2 tablets twice daily documented in this encounterCleveland Clinic [facility]03-24-2022 Miscellaneous Notes* Telephone Encounter - Alison Rogel RN - 10/12/2021 2:38 PM EDT Patient returned call and given provider's message below and patient verbalized understanding. Patient is agreeable to trying Lantus insulin. She states she has an upcoming appt with Kiley Randall on 10/16/21, if Kiley or Jsesica prefers to discuss this with patient at that time, or sooner. If Pharmacy would please advise and contact patient. Thank you. Mc Rogel RN * Telephone Encounter - Cecilia Lopez Ma - 10/12/2021 11:53 AM EDT Additional message left for pt to call back for results. Cecilia Lopez Ma * Telephone Encounter - Diamante Cai LPN - 10/09/2021 1:11 PM EDT TC to pt. LM to call office, ask for triage nurse to get results. Diamante Cai LPN * Telephone Encounter - Coco Waters APRN.ALEXEI - 10/09/2021 12:43 PM EDT Can you call the patient and let her know that Dr. Douglass is out of the office today. A1c is upfrom 6.5 to 13.9. We need to get her sugars down. I would like to add on lantus 10 units at bedtimeand adjust pending how her sugars do. I would encourage her to continue to try to watch diet, eat alow-carb diet, increase protein and vegetables. Get some form of exercise. Make an appointment withclinical pharmacy. If she is agreeable to start the Lantus can you please verify pharmacy. Please let me know if she has any other questions. Thank you. Coco Waters APRN.ALEXEI documented in this encounterC[facility]03-24-2022 Miscellaneous Notes* Telephone Encounter - Alison Rogel RN - 10/12/2021 1:44 PM EDT Opened in error. Mc Rogel RN documented in this encounterCleveland Clinic Fairview HospitalDischarge summary Author Dr. Rivera [facility] October 10, 2022 5:59am Note Date/Time October 10, 2022 5:1 4am [facility] Medical Records Department [address] [place] [address] Emergency Department Summary 10/10/22 MR#: [id number] Acct: [id number] Name: LEROY TYLER Rep #:[id number] 1 : 1965 56 From: Sid Rivera MD PCP: Dr. Papa Douglass MD Status:RE G ER Location: ED HPI HPI - GI History of Present Illness Chief Complaint: Abd Pain Informant: patient Abdominal Pain/Flank Pain Onset: Yesterday Context: Gradual Onset Timing: Continuous Quality: Aching Location: - (Lower abdomen, both sides. Nonradiating.) Current Severity: Moderate Maximum Severity: Moderate Worsened by: - (Urinating) Relieved by: Nothing Nausea/Vomiting/Emesis GI Symptom: Negative for Nausea or Vomiting Diarrhea/Melena/Hematochezia GI Symptom: Negative for Diarrhea, Melena or Hematochezia Associated Symptoms Associated Symptoms: Positive for Dysuria, Frequency, Hematuria, Urgency and - (Urinary hesitancy) Narrative Narrative: 56-year-old female presents with urinary symptoms that started yesterday afternoon, followed by lower abdominal pain. No back pain, nausea, vomiting, fevers or chills. Minor specks of blood with her urine, but no gross hematuria. No urinary retention. No vaginal discharge or bleeding. Has had a urine infection in the past, she admits this does feel similar except for the pain is a little more intense. States that she took the last pill of a Z-Alvarado a couple days ago for a cold which it has not helped. She has minor rhinorrhea, congestion, cough without dyspnea. [facility] Medical History Anemia Arthritis Back pain Bloody stool Depression Diabetes History of frequent headaches Hyperlipidemia Hypertension Hypothyroid Hypothyroidism Morbid obesity Noncompliance with medication regimen Thyroid disease Home Medications albuterol sulfate 2.5 mg/3 mL (0.083 %) solution for nebulization 2.5 mg inhalation Q4H PRN PRN Sob &/Or Wheezing 04/11/18 [History Last Taken Unknown] lisinopril 2.5 mg tablet 2.5 mg PO DAILY BP 04/11/18 [History Last Taken 10/06/19] fluoxetine 40 mg capsule 40 mg PO DAILY DEPRESSION 02/12/19 [History Last Taken 10/06/19] atorvastatin 20 mg tablet 20 mg PO QHS CHOLESTEROL 10/06/19 [History Last Taken 10/05/19] levothyroxine 200 mcg tablet 350 mcg PO DAILY THYROID 10/06/19 [History Last Taken 10/06/19] acetaminophen 325 mg tablet 650 mg PO Q6H PRN PRN Pain Score 1-10/Temp > 100.7 F010/09/19 [Rx Last Taken Unknown] insulin degludec 200 unit/mL (3 mL) subcutaneous pen 100 unit SQ DAILY dm 06/13/20 [History Last Taken Unknown] docusate sodium 100 mg capsule 100 mg PO DAILY PRN Constipation 09/07/20 [History Last Taken Unknown] metformin 500 mg tablet,extended release 24 hr 1,000 mg PO DAILY dm 03/29/21 [History Last Taken Unknown] insulin lispro 100 unit/mL subcutaneous pen 46 unit SC TIDAC dm 07/21/21 [History Last Taken Unknown] cefdinir 300 mg capsule 300 mg PO BID #10 caps 02/11/22 [Rx Last Taken Unknown] clindamycin HCl 300 mg capsule (Cleocin HCl) 300 mg PO Q6H #40 CAPSULES 06/08/22[Rx Last Taken Unknown] hydrocodone-acetaminophen 5-325mg 5mg-325mg 1 tab PO Q4H PRN PRN Pain 2 days #15TABLETS 06/08/22 [Rx Last Taken Unknown] ondansetron 4 mg disintegrating tablet 4 mg PO Q8H PRN nausea and vomiting #10 tabs 08/12/22 [Rx Last Taken Unknown] cephalexin 500 mg capsule 500 mg PO Q12 #10 CAPSULES 10/10/22 [Rx Last Taken Unknown] phenazopyridine 200 mg tablet (Pyridium) 200 mg PO BID PRN PRN Pain #10 tabs 10/10/22 [Rx Last Taken Unknown] Allergy/AdvReac Type Severity Reaction Status Date / Time codeine Allergy Angioedema Verified 10/10/22 05:09 nitrofurantoin Allergy edema Verified 10/10/22 05:09 Penicillins Allergy Rash Verified 10/10/22 05:09 Sulfa (Sulfonamide Allergy Rash Verified 10/10/22 05:09 Antibiotics) sulfamethoxazole [Bactrim] Allergy Unknown Verified 10/10/22 05:09 trimethoprim [Bactrim] Allergy Unknown Verified 10/10/22 05:09 Family History Other Cancer Surgical History Hx of cholecystectomy Social History household members: none Smoking Status: Former smoker alcohol intake: current details: Patient states she does not drink however nurse documents and prior note do substance use type: does not use ROS ROS ED Constitutional Constitutional ED: Denies chills or fever(s) Eyes Eyes: Denies change in vision or diplopia ENT ENT ED: Denies rhinorrhea or sore throat Cardiovascular Cardiovascular: Denies chest pain or palpitations Respiratory/Chest Respiratory/Chest: Denies cough or dyspnea Gastrointestinal Gastrointestinal: Reports abdominal pain; Denies diarrhea, nausea or vomiting Genitourinary Genitourinary ED: Reports as per HPI, dysuria, hematuria, urinary frequency and urinary hesitancy Musculoskeletal Musculoskeletal: Denies back pain or neck pain Integumentary Denies abscess or rash Neurologic Neurologic: Denies headache(s), paresthesias or weakness Psychiatric Psychiatric: Denies anxiety or suicidal thoughts EXAM Physical Exam Const Vital Signs: 10/10/22 05:05 Temperature 97.2 F L Temperature Source Temporal Pulse Rate 94 Respiratory Rate 20 H Blood Pressure 137/98 H Blood Pressure Mean 111 Pulse Ox 97 Oxygen Delivery Method Room Air Positive well nourished, well developed and obese General Appearance ED: well developed and NAD Nutritional Appearance: obese HEENT Reports moist mucous membranes normocephalic and atraumatic Eyes PERRL and EOMs intact bilaterally Neck full ROM and supple Resp normal respiratory effort and clear to auscultation bilaterally Cardio regular rate, regular rhythm and no murmurs GI non-distended GI Narrative: Mild tenderness both right and left of suprapubic, no guarding or rebound, otherwise benign. Exam significantly limited due to morbid obesity, the patient indicates that her pain is in her lower abdomen just above the inguinal ligaments, up under her pannus which itself is benign. Examining the patient on top of her abdomen while lying supine, above the pannus, is nontender and benign. Auscultation: normoactive bowel sounds Palpation: soft Back/Spine no CVA tenderness General Back: other FROM Extremity normal to inspection General Extremety ED: Negative for edema, pulses abnormal or tenderness General Extremity: Negative for edema or pulses abnormal Neuro oriented x3, CN's II-XII intact bilaterally, no sensory deficits noted and gait normal Sensorium / Orientation: awake and alert Motor Exam: strength 5/5 throughout Psych mental status grossly normal and thought process normal Skin no rashes or lesions noted and no wounds MDM MDM MDM Narrative Medical decision making narrative: Urinalysis obtained, very consistent with infection. Very likely lower abdominal pain she is having his bladder pain, if the antibiotic helps the urinary symptoms but not the pain she is advised to follow-up closely. Culture sent, prescribed the patient cephalexin and Pyridium (patient is allergic to the other first-line recommended medications and fosphenytoin not available), we will have those prescriptions filled here before she leaves so that she can start taking them she is comfortable with that plan. Lab Data Attestation: I reviewed the patient's lab results. Labs: Laboratory Results - last 24 hr 10/10/22 05:20 Urine Color Yellow Urine Clarity Turbid Urine pH 6.5 Ur Specific Bend[place] 1.015 Urine Protein 100 H Urine Glucose (UA) Normal Urine Ketones Negative Urine Occult Blood 150 H Urine Nitrite Positive H Urine Bilirubin Negative Urine Urobilinogen Normal Ur Leukocyte Esterase 500 H Urine RBC 25-50 SEEN Urine WBC >100 SEEN Ur Squamous Epith Cells 0 SEEN Urine Bacteria 4+ Urine Mucus 0 SEEN Discharge Plan Triage Chief Complaint: Abd Pain ED Provider: Sid Rivera Dx/Rx/DC Orders Clinical Impression: Acute cystitis with hematuria Instructions: ED Cystitis Female Adult Prescriptions: New phenazopyridine [Pyridium] 200 mg tablet 200 mg PO BID PRN PRN (Reason: Pain) Qty: 10 0RF cephalexin [cephalexin] 500 mg capsule 500 mg PO Q12 Qty: 10 0RF No Action albuterol sulfate 2.5 mg /3 mL (0.083 %) solution for nebulization 2.5 mg INHALATION Q4H PRN PRN (Reason: Sob &/Or Wheezing) lisinopril 2.5 mg tablet 2.5 mg PO DAILY fluoxetine 40 MG capsule 40 mg PO DAILY Label Comments: TAKE 1 CAPSULE BY MOUTH EVERY DAY atorvastatin 20 MG tablet 20 mg PO QHS levothyroxine 200 MCG tablet 350 mcg PO DAILY acetaminophen 325 MG tablet 650 mg PO Q6H PRN PRN (Reason: Pain Score 1-10/Temp > 100.7 F) 0RF insulin degludec 200 UNIT/ML insulin pen 100 unit SQ DAILY Label Comments: INJECT 110 UNITS SUBCUTANEOUSLY EVERY MORNING. docusate sodium 100 MG capsule 100 mg PO DAILY PRN (Reason: Constipation) metformin 500 mg tablet extended release 24 hr 1,000 mg PO DAILY Label Comments: TAKE 2 TABLETS BY MOUTH TWICE A DAY insulin lispro 100 UNIT/ML insulin pen 46 unit SC TIDAC Protocol: 5. Sliding Scale Insulin High Dosing Condition: 150-209 mg/dl = 3 units Condition: 210-259 mg/dl = 6 units Condition: 260-324 mg/dl = 9 units Condition: 325-374 mg/dl = 12 units Condition: 375-409 mg/dl = 14 units Condition: 410-449 mg/dl = 16 units Condition: Greater than 449 call physician Protocol Text: - Use for Total Daily Dose of Insulin 81-120 units - Very insulin resistant or septic patients HIGH DOSING ALGORITHM Rx Instructions: 46 base plus sliding scale cefdinir 300 mg capsule 300 mg PO BID Qty: 10 0RF clindamycin HCl [Cleocin HCl] 300 mg capsule 300 mg PO Q6H Qty: 40 0RF hydrocodone-acetaminophen [hydrocodone-acetaminophen] 5-325 mg tablet 1 tab PO Q4H PRN PRN (Reason: Pain) 2 Days Qty: 15 0RF ondansetron 4 mg tablet,disintegrating 4 mg PO Q8H PRN (Reason: nausea and vomiting) Qty: 10 0RF Primary Care Provider: Papa Douglass Referrals: Papa Douglass MD [Primary Care Provider] - 3-5 Days if not improving Activity Restrictions/Additional Instructions: Eat yogurt daily or take a probiotic to prevent antibiotic associated diarrhea since the azithromycin is still in your system for another 3 days or so. Disposition Disposition: Home, Self Care What to do if you have Problems For any increased pain, shortness of breath, bleeding, nausea or vomiting, chestpain, or any unexpected problems, contact your Primary Care Provider. Call [facility] ([phone]) or report to the closest Emergency Room. Call 911 if necessary. 10/10/22 0559 <Electronically signed by Sid Rivera MD> Cosigner Signature (if applicable): CC: Dr. Papa Douglass MD ~ Signed [facility] Work Phone: Evaluation + Plan note Future Appointments Appointment Date:07/30/2023 09:00:00 AM Scheduled Provider: Location:[facility] Appointment Type:PC Nurse Lab Appointment Date:08/02/2023 01:30:00 PM Scheduled Provider:VERO ORTEZ Location:[facility] Appointment Type:[facility] OV Future Scheduled Tests Radiology* CT Thorax w/o Contrast 06/21/23 [facility] Evaluation + Plan note Future Appointments Appointment Date:08/02/2023 01:30:00 PM Scheduled Provider:VERO ORTEZ Location:[facility] Appointment Type:PC OV Appointment Date:08/13/2023 10:00:00 AM Scheduled Provider: Location:[facility] Appointment Type:CT Chest w/o Contrast Future Scheduled Tests Radiology* CT Thorax w/o Contrast 08/13/23 [facility] Evaluation + Plan note Future Appointments Appointment Date:06/30/2024 09:00:00 AM Scheduled Provider:VERO ORTEZ Location:[facility] Appointment Type:PC Wellness Annual Future Scheduled Tests Laboratory* Lipid Profile 01/14/24 * Lipid Profile 07/15/24 * Complete Metabolic Panel 01/14/24 * Complete Metabolic Panel 07/15/24 [facility] Evaluation + Plan note Future Appointments Appointment Date:03/16/2024 08:00:00 AM Scheduled Provider:KURT PINEDA Location:UROLOGY Appointment Type:[facility] Appointment Date:05/25/2024 02:30:00 PM Scheduled Provider:VERO ORTEZ Location:[facility] Appointment Type:PC OV Appointment Date:06/30/2024 09:00:00 AM Scheduled Provider:VERO ORTEZ APRN-ALEXEI Location:[facility] Appointment Type:PC Wellness Annual Diagnostic Tests Pending * Urine Culture 02/25/24 Future Scheduled Tests Laboratory* Lipid Profile 01/14/24 * Lipid Profile 07/15/24 * Complete Metabolic Panel 01/14/24 * Complete Metabolic Panel 07/15/24 [facility] Evaluation + Plan note Future Appointments Appointment Date:03/02/2024 07:30:00 AM Scheduled Provider:VERO ORTEZ Location:[facility] Appointment Type:PC OV ED Follow Up Appointment Date:03/16/2024 08:00:00 AM Scheduled Provider:KURT PINEDA Location:UROLOGY Appointment Type:[facility] NURSE Appointment Date:05/25/2024 02:30:00 PM Scheduled Provider:VERO ORTEZ Location:[facility] Appointment Type:PC OV Appointment Date:06/30/2024 09:00:00 AM Scheduled Provider:VERO ORTEZ APRN-ALEXEI Location:[facility] Appointment Type:PC Wellness Annual Future Scheduled Tests Laboratory* Lipid Profile 01/14/24 * Lipid Profile 07/15/24 * Complete Metabolic Panel 01/14/24 * Complete Metabolic Panel 07/15/24 [facility] Evaluation + Plan note Future Appointments Appointment Date:03/16/2024 08:00:00 AM Scheduled Provider:KURT PINEDA Location:UROLOGY Appointment Type:URO PRIMARY HEALTH CARE NURSE Appointment Date:05/25/2024 02:30:00 PM Scheduled Provider:VERO ORTEZ Location:[facility] Appointment Type:PC OV Appointment Date:06/30/2024 09:00:00 AM Scheduled Provider:VERO ORTEZ Location:[facility] Appointment Type: Wellness Annual Future Scheduled Tests Laboratory* Lipid Profile 01/14/24 * Lipid Profile 07/15/24 * Complete Metabolic Panel 01/14/24 * Complete Metabolic Panel 07/15/24 [facility] Evaluation + Plan note Future Appointments Appointment Date:03/17/2024 07:30:00 AM Scheduled Provider:JAE AYALA Location:[facility] Appointment Type:PC Acute Appointment Date:05/25/2024 02:30:00 PM Scheduled Provider:VERO ORTEZ Location:[place] Appointment Type:PC OV Appointment Date:06/30/2024 09:00:00 AM Scheduled Provider:VERO ORTEZ Location:[facility] Appointment Type: Wellness Annual Future Scheduled Tests Laboratory* Urine Culture 03/16/24 * Lipid Profile 01/14/24 * Lipid Profile 07/15/24 * Complete Metabolic Panel 01/14/24 * Complete Metabolic Panel 07/15/24 [facility] Evaluation + Plan note Future Appointments Appointment Date:05/25/2024 02:30:00 PM Scheduled Provider:VERO ORTEZ Location:[facility] Appointment Type:PC OV Appointment Date:06/30/2024 09:00:00 AM Scheduled Provider:VERO ORTEZ Location:[facility] Appointment Type: Wellness Annual Future Scheduled Tests Laboratory* Lipid Profile 01/14/24 * Lipid Profile 07/15/24 * Complete Metabolic Panel 01/14/24 * Complete Metabolic Panel 07/15/24 [facility] Evaluation + Plan note Future Appointments Appointment Date:04/23/2024 09:20:00 AM Scheduled Provider:AMADOU CLINTON MD Location:UROLOGY Appointment Type:URO Off Proc Cysto 20 min Appointment Date:05/25/2024 02:30:00 PM Scheduled Provider:VERO ORTEZ Location:[facility] Appointment Type:PC OV Appointment Date:06/30/2024 09:00:00 AM Scheduled Provider:VERO ORTEZ Location:[facility] Appointment Type: Wellness Annual Future Scheduled Tests Laboratory* Lipid Profile 01/14/24 * Lipid Profile 07/15/24 * Complete Metabolic Panel 01/14/24 * Complete Metabolic Panel 07/15/24 Radiology* MA Mammo Screening Bilateral w/ Jorge Alberto 03/30/24 [facility] Evaluation + Plan note Future Appointments Appointment Date:04/21/2024 01:00:00 PM Scheduled Provider: Location:RAD Appointment Type:MA Mammogram Screening Bilateral w/ Jorge Alberto Appointment Date:04/23/2024 09:20:00 AM Scheduled Provider:AMADOU CLINTON MD Location:UROLOGY Appointment Type:URO Off Proc Cysto 20 min Appointment Date:05/11/2024 11:30:00 AM Scheduled Provider:VERO ORTEZ Location:[facility] Appointment Type:PC OV Appointment Date:05/25/2024 02:30:00 PM Scheduled Provider:VERO ORTEZ Location[place] [place] Appointment Type:PC OV Appointment Date:06/30/2024 09:00:00 AM Scheduled Provider:VERO ORTEZ Location:[facility] Appointment Type: Wellness Annual Future Scheduled Tests Laboratory* Lipid Profile 01/14/24 * Lipid Profile 07/15/24 * Complete Metabolic Panel 04/13/24 * Complete Metabolic Panel 01/14/24 * Complete Metabolic Panel 07/15/24 Radiology* MA Mammo Screening Bilateral w/ Jorge Alberto 04/21/24 [facility] Evaluation + Plan note Future Appointments Appointment Date:05/05/2024 08:00:00 AM Scheduled Provider: Location:RAD Appointment Type:Echo - Echocardiogram Adult Appointment Date:05/11/2024 11:30:00 AM Scheduled Provider:VERO ORTEZ Location:[facility] Appointment Type:PC OV Appointment Date:05/21/2024 09:00:00 AM Scheduled Provider:KURT PINEDA Location:UROLOGY Appointment Type:URO OV Appointment Date:05/25/2024 02:30:00 PM Scheduled Provider:VERO ORTEZ Location:[facility] Appointment Type:PC OV Appointment Date:06/30/2024 09:00:00 AM Scheduled Provider:VERO ORTEZ Location:[facility] Appointment Type:PC Wellness Annual Future Scheduled Tests Laboratory* Lipid Profile 01/14/24 * Lipid Profile 07/15/24 * Complete Metabolic Panel 04/13/24 * Complete Metabolic Panel 01/14/24 * Complete Metabolic Panel 07/15/24 Radiology* MA Mammo Screening Bilateral w/ Jorge Alberto 04/21/24 [facility] Evaluation + Plan note Future Appointments Appointment Date:05/11/2024 11:30:00 AM Scheduled Provider:VERO ORTEZ Location:[facility] Appointment Type:PC OV Appointment Date:05/21/2024 09:00:00 AM Scheduled Provider:KURT PINEDA Location:UROLOGY Appointment Type:URO OV Appointment Date:05/25/2024 02:30:00 PM Scheduled Provider:VERO ORTEZ Location:[facility] Appointment Type:PC OV Appointment Date:06/30/2024 09:00:00 AM Scheduled Provider:VERO ORTEZ Location:[facility] Appointment Type:PC Wellness Annual Future Scheduled Tests Laboratory* Lipid Profile 07/15/24 * Complete Metabolic Panel 01/14/24 * Complete Metabolic Panel 07/15/24 Radiology* MA Mammo Screening Bilateral w/ Jorge Alberto 04/21/24 [facility] Evaluation + Plan note Future Appointments Appointment Date:05/21/2024 09:00:00 AM Scheduled Provider:KURT PINEDA Location:UROLOGY Appointment Type:URO OV Appointment Date:05/25/2024 02:30:00 PM Scheduled Provider:VERO ORTEZ Location:[facility] Appointment Type:PC OV Appointment Date:06/30/2024 09:00:00 AM Scheduled Provider:VERO ORTEZ Location:[facility] Appointment Type:PC Wellness Annual Appointment Date:11/02/2024 01:30:00 PM Scheduled Provider:VERO ORTEZ [place] Appointment Type:PC OV Future Scheduled Tests Laboratory* Complete Metabolic Panel 01/14/24 Radiology* MA Mammo Screening Bilateral w/ Jorge Alberto 04/21/24 [facility] Evaluation + Plan note Future Appointments Appointment Date:05/25/2024 02:30:00 PM Scheduled Provider:VERO ORTEZ Location:[facility] Appointment Type:PC OV Appointment Date:06/30/2024 09:00:00 AM Scheduled Provider:VERO ORTEZ Location:[facility] Appointment Type:PC Wellness Annual Appointment Date:11/02/2024 01:30:00 PM Scheduled Provider:VERO ORTEZ Location:[facility] Appointment Type:PC OV Future Scheduled Tests Laboratory* Complete Metabolic Panel 01/14/24 Radiology* MA Mammo Screening Bilateral w/ Jorge Alberto 04/21/24 [facility] Evaluation + Plan note Future Appointments Appointment Date:11/20/2024 01:30:00 PM Scheduled Provider:KURT PINEDA Location:UROLOGY Appointment Type:URO OV Future Scheduled Tests Laboratory* Urine Culture 09/02/24 * Complete Metabolic Panel 01/14/24 Radiology* MA Mammo Screening Bilateral w/ Jorge Alberto 04/21/24 * MA Mammo Screening Bilateral w/ Jorge Alberto 09/02/24 [facility] Evaluation + Plan note Future Appointments Appointment Date:11/20/2024 01:30:00 PM Scheduled Provider:KURT PINEDA Location:UROLOGY Appointment Type:URO OV Future Scheduled Tests Laboratory* Urine Culture 09/02/24 * Complete Metabolic Panel 01/14/24 Radiology* MA Mammo Screening Bilateral w/ Jorge Alberto 04/21/24 [facility] evaluation + Plan note Future Appointments Appointment Date:11/20/2024 01:30:00 PM Scheduled Provider:KURT PINEDA Location:UROLOGY Appointment Type:URO OV Appointment Date:12/02/2024 01:00:00 PM Scheduled Provider:VERO ORTEZ Location:[facility] Appointment Type:PC OV Appointment Date:02/02/2025 03:30:00 PM Scheduled Provider:VERO ORTEZ Location:[facility] Appointment Type:PC OV Future Scheduled Tests Laboratory* Urine Culture 09/02/24 * Complete Metabolic Panel 01/14/24 Radiology* MA Mammo Screening Bilateral w/ Jorge Alberto 04/21/24 [facility] Evaluation + Plan note Future Appointments Appointment Date:02/02/2025 03:30:00 PM Scheduled Provider:VERO ORTEZ Location:[facility] Appointment Type:PC OV Future Scheduled Tests Laboratory* Urine Culture 09/02/24 * Complete Metabolic Panel 01/14/24 Radiology* MA Mammo Screening Bilateral w/ Jorge Alberto 04/21/24 [facility] Evaluation note* Diagnosis Onychomycosis Dermatophytosis of [facility] Diagnosis Left hand pain- Primary Pain in limb documented in this encounter [facility] note* Diagnosis Type 2 diabetes mellitus without complication, with long-term current use of insulin (HCC)- Primary documented in this encounter [facility] note* Diagnosis Uncontrolled type 2 diabetes mellitus with hyperglycemia (HCC)- Primary documented in this encounter [facility] note* Diagnosis Type 2 diabetes mellitus without complication, with long-term current use of insulin ([facility]) documented in this encounter [facility] note* Diagnosis Uncontrolled type 2 diabetes mellitus with hyperglycemia (HCC)- Primary Hypothyroidism, unspecified type Anxiety with depression Mixed hyperlipidemia Essential hypertension Unspecified essential hypertension Anemia, unspecified type KODI (obstructive sleep apnea) Obstructive sleep apnea (adult) (pediatric) GERD without esophagitis Esophageal reflux documented in this encounter [facility] note* Diagnosis Onset Date Resolution Status Depression acute Hyperglycemia due to diabetes mellitus acute Lactic acidosis acute UTI (urinary tract infection) acute Hypothyroidism [facility] Work Phone: Evaluation note* Diagnosis Onset Date Resolution Status Depression acute Hyperglycemia due to diabetes mellitus acute Lactic acidosis acute Noncompliance with medication regimen acute UTI (urinary tract infection) acute Hypothyroidism chronic [facility] Work Phone: Evaluation note* Diagnosis Type 2 diabetes mellitus without complication, with long-term current use of insulin ([facility]) documented in this encounter [facility] note* Diagnosis Pharyngitis, unspecified etiology- Primary Rash, skin Rash and other nonspecific skin eruption Vaginal itching Pruritus of genital organs documented in this encounter [facility] note* Diagnosis Type 2 diabetes mellitus without retinopathy (HCC)- Primary Type II or unspecified type diabetes mellitus without mention of complication, not stated as uncontrolled Regular astigmatism of both eyes Regular astigmatism Presbyopia Dry eye syndrome of bilateral lacrimal glands Tear film insufficiency, unspecified Punctate keratitis of right eye Punctate keratitis documented in this encounter [facility] note* Diagnosis Uncontrolled type 2 diabetes mellitus with hyperglycemia (HCC)- Primary Hypothyroidism, unspecified type Acquired hypothyroidism Unspecified hypothyroidism Type 2 diabetes mellitus without complication, with long-term current use of insulin ([facility]) documented in this encounter [facility] note* Diagnosis Type 2 diabetes mellitus without complication, with long-term current use of insulin ([facility])- Primary Essential hypertension Unspecified essential hypertension Hypothyroidism, unspecified type documented in this encounter [facility] note* Diagnosis Regular astigmatism of both eyes- Primary Regular astigmatism Presbyopia Dry eye syndrome of bilateral lacrimal glands Tear film insufficiency, unspecified Punctate keratitis of right eye Punctate keratitis Type 2 diabetes mellitus without retinopathy (HCC) Type II or unspecified type diabetes mellitus without mention of complication, not stated as uncontrolled documented in this encounter [facility] note* Diagnosis Onset Date Resolution Status Hyperglycemia due to diabetes mellitus resolved Lactic acidosis resolved UTI (urinary tract infection) resolved [facility] Work Phone: Evaluation noteNo assessment information available [facility] Work Phone: Evaluation note* Diagnosis Type 2 diabetes mellitus without complication, with long-term current use of insulin ([facility])- Primary Hypothyroidism, unspecified type Anxiety with depression documented in this encounter [facility] note* Diagnosis Viral URI- Primary Acute upper respiratory infections of unspecified site Facial infection Other specified infectious and parasitic diseases documented in this encounter [facility] note* Diagnosis Facial infection- Primary Other specified infectious and parasitic diseases Erysipelas [facility] Diagnosis Bilateral leg edema- Primary Edema [facility] Diagnosis Urinary tract infection with hematuria, site unspecified- Primary [facility] Diagnosis Allergy to multiple antibiotics- Primary Other drug allergy [facility] Diagnosis [id number] adverse effect of medication, initial encounter- Primary Allergy to multiple antibiotics Other drug allergy Nonallergic rhinitis Chronic [facility]initis [facility] Diagnosis Urinary tract infection with hematuria, site unspecified- Primary Allergy to multiple antibiotics Other drug allergy [facility]* Diagnosis SOB (shortness of breath)- Primary Shortness of breath Bilateral leg edema Edema [facility] Diagnosis Dry eye syndrome of bilateral lacrimal glands- Primary Tear film insufficiency, unspecified Regular astigmatism of both eyes Regular astigmatism Presbyopia Type 2 diabetes mellitus without retinopathy (HCC) Type II or unspecified type diabetes mellitus without mention of complication, not stated as uncontrolled [facility] Diagnosis URI, acute- Primary Acute upper respiratory infections of unspecified site Type 2 diabetes mellitus without complication, with long-term current use of insulin (HCC) Hypothyroidism, unspecified type Iron deficiency anemia secondary to inadequate dietary iron intake Vitamin D deficiency Unspecified vitamin D deficiency [facility] Diagnosis Bronchitis- Primary Bronchitis, not specified as acute or chronic Acute cough Sore throat Acute pharyngitis Iron deficiency anemia secondary to inadequate dietary iron intake Type 2 diabetes mellitus without complication, with long-term current use of insulin (HCC) [facility]* Diagnosis Type 2 diabetes mellitus without complication, with long-term current use of insulin (HCC) [facility]* Diagnosis Type 2 diabetes mellitus without complication, with long-term current use of insulin (HCC)- Primary [facility] Diagnosis Iron deficiency anemia secondary to inadequate dietary iron intake [facility]* Diagnosis Type 2 diabetes mellitus without complication, with long-term current use of insulin (HCC)- Primary Hypothyroidism, unspecified type [facility] Diagnosis Bilateral foot pain- Primary Pain in limb documented in this encounter [facility] note* Diagnosis Bilateral leg edema Edema Type 2 diabetes mellitus without complication, with long-term current use of insulin ([facility]) documented in this encounter [facility] note* Diagnosis Dry eye syndrome of bilateral lacrimal glands- Primary Tear film insufficiency, unspecified Regular astigmatism of both eyes Regular astigmatism Presbyopia Type 2 diabetes mellitus without retinopathy (HCC) Type II or unspecified type diabetes mellitus without mention of complication, not stated as uncontrolled documented in this encounter [facility] note* Diagnosis Venous insufficiency- Primary Unspecified venous (peripheral) insufficiency documented in this encounter [facility] note* Diagnosis Pain in both hands- Primary Type 2 diabetes mellitus without complication, with long-term current use of insulin ([facility]) Hypothyroidism, unspecified type History of anemia Personal history of diseases of blood and blood-forming organs Mixed hyperlipidemia Essential hypertension Unspecified essential hypertension Uncontrolled type 2 diabetes mellitus with hyperglycemia (HCC) GERD without esophagitis Esophageal reflux documented in this encounter [facility] note* Diagnosis Dysuria- Primary documented in this encounter [facility] note* Diagnosis Venous (peripheral) insufficiency- Primary Unspecified venous (peripheral) insufficiency Secondary lymphedema Other lymphedema documented in this encounter [facility] note* Diagnosis Onset Date Resolution Status CKD (chronic kidney disease) chronic Diabetes chronic Hypothyroidism chronic Neuropathy chronic Obesity chronic CKD (chronic kidney disease) chronic Diabetes chronic Hypothyroidism chronic Obesity chronic Colitis acute Hyperglycemia acute Hypoxia acute Leg edema acute UTI (urinary tract infection) acute [facility] Work Phone: Evaluation note* Diagnosis Hospital discharge follow-up- Primary Other follow-up examination Need for influenza vaccination Need for prophylactic vaccination and inoculation against influenza Need for vaccination Need for prophylactic vaccination and inoculation against unspecified single disease Colitis Other and unspecified noninfectious gastroenteritis and colitis Type 2 diabetes mellitus without complication, with long-term current use of insulin (HCC) Stage 3 chronic kidney disease, unspecified whether stage 3a or 3b CKD (HCC) Encounter for screening colonoscopy Special screening for malignant neoplasms, colon SOB (shortness of breath) Shortness of breath Bilateral leg edema Edema documented in this encounter [facility] note* Diagnosis History of colonic polyps- Primary Personal history of colonic polyps Colitis Other and unspecified noninfectious gastroenteritis and colitis Encounter for screening colonoscopy Special screening for malignant neoplasms, colon documented in this encounter [facility] note* Diagnosis Pre-operative examination- Primary Preoperative examination, unspecified Anemia, unspecified type Type 2 diabetes mellitus without complication, with long-term current use of insulin (HCC) Colitis Other and unspecified noninfectious gastroenteritis and colitis Essential hypertension Unspecified essential hypertension Mixed hyperlipidemia Hypothyroidism, unspecified type Chronic diastolic congestive heart failure (HCC) Chronic diastolic heart failure Bilateral leg edema Edema Morbid obesity with BMI of 50.0-59.9, adult (HCC) Morbid obesity documented in this encounter [facility] note* Diagnosis Dry eye syndrome of bilateral lacrimal glands- Primary Tear film insufficiency, unspecified Punctate keratitis of right eye Punctate keratitis Type 2 diabetes mellitus without retinopathy (HCC) Type II or unspecified type diabetes mellitus without mention of complication, not stated as uncontrolled Regular astigmatism of both eyes Regular astigmatism Presbyopia documented in this encounter [facility] note* Diagnosis Encounter for screening mammogram for breast cancer documented in this encounter [facility] note* Diagnosis Left hand pain Pain in limb Pre-operative examination- Primary Preoperative examination, unspecified Anemia, unspecified type Type 2 diabetes mellitus without complication, with long-term current use of insulin (HCC) Colitis Other and unspecified noninfectious gastroenteritis and colitis Essential hypertension Unspecified essential hypertension Mixed hyperlipidemia Hypothyroidism, unspecified type Chronic diastolic congestive heart failure (HCC) Chronic diastolic heart failure Bilateral leg edema Edema Morbid obesity with BMI of 50.0-59.9, adult (HCC) Morbid obesity documented in this encounter [facility] note* Diagnosis 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 [facility] Diagnosis 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 [facility] Diagnosis 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 [facility] Diagnosis 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 [facility] Diagnosis Neuroendocrine neoplasm of stomach- Primary Neuroendocrine cancer Other malignant neoplasm without specification of site [facility] Diagnosis 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 Diagnosis Pre-operative examination- Primary Preoperative examination, unspecified Anemia, unspecified type Type 2 diabetes mellitus without complication, with long-term current use of insulin (HCC) Colitis Other and unspecified noninfectious gastroenteritis and colitis Essential hypertension Unspecified essential hypertension Mixed hyperlipidemia Hypothyroidism, unspecified type Chronic diastolic congestive heart failure (HCC) Chronic diastolic heart failure Bilateral leg edema Edema Morbid obesity with BMI of 50.0-59.9, adult (HCC) Morbid obesity Encounter for screening mammogram for breast cancer [facility] Diagnosis [facility]ocrine [facility]oplasm of stomach [facility] Neuroendocrine neoplasm of stomach [facility] Diagnosis Neuroendocrine neoplasm of stomach- Primary Neuroendocrine cancer Other malignant neoplasm without specification of site Hepatosplenomegaly Other chronic nonalcoholic liver disease Elevated transaminase level Nonspecific elevation of levels of transaminase or lactic acid dehydrogenase (LDH) documented in this encounter [facility] Narr[facility] No data available for this section [facility] Hospital Discharge instructions Additional Instructions [facility] the [facility] Work Phone: Hospital Discharge instructions Additional Instructions You have a hand contusion which is treated with rest, ice, Tylenol and ibuprofen. Call the now clinic for follow-up.[facility] Work Phone: Hospital Discharge instructions Additional Instructions Eat yogurt daily or take a probiotic to prevent antibiotic associated diarrhea since the azithromycin is still in your system for another 3 days or so.[facility] Work Phone: Hospital Discharge instructions No data available for this section [facility] Hospital Discharge instructions Additional Instructions Your exam and history indicate that your pain is most likely from neuropathy secondary to your diabetes. Take the prescribed medication as directed to help control symptoms. If you develop a fever noticed increased redness or swelling or have any further concerns please return to the ER for repeat evaluation.[facility] Work Phone: Progress note No data available for this section [facility] Reason for referral (narrative)* Diagnostic Procedure Only (Urgent) - Closed Specialty Diagnoses / Procedures Referred By Contac t Referred To Contact XR IMAGING Diagnoses Left hand pain Procedures XR HAND GENERAL 3V PA/LAT/OBL LEFT RADEX HAND MINIMUM 3 VIEWS Sasha Schroeder APRN.CNP [address] [place] [address] Xr Imaging Referral ID Status Reason Start Date Expiration Date V isits Requested Visits Authorized [id number] Closed Auto-Generate d Referral 10/16/2021 11/15/2022 1 1 [facility] for referral (narrative)* Diagnostic Procedure Only (Routine) - Pending Review Specialty Diagnoses / Procedures Referred By Contac t Referred To Contact XR IMAGING Diagnoses Bilateral foot pain Procedures XR FOOT GENERAL 3V AP/LAT/OBL BILATERAL RADEX FOOT COMPLETE MINIMUM 3 VIEWS Louis Darby [address] [place] [address] Xr Imaging Referral ID Status Reason Start Date Expiration Date Visits Requested Visits Authorized [id number] Pending Review Auto-Generat ed Referral 11/16/2022 12/16/2023 1 1 [facility] for referral (narrative)* Diagnostic Procedure Only (Routine) - Pending Review Specialty Diagnoses / Procedures Referred By Contac t Referred To Contact BR IMAGING Diagnoses Encounter for screening mammogram for breast cancer Procedures AMY SCREENING SCREENING MAMMOGRAPHY BI 2-VIEW BREAST INC CAD Papa Douglass MD [address] [place] [address] [facility] [address] [place] [address] Referral ID Status Reason Start Date Expiration Date Visits Requested Visits Authorized [id number] Pending Review Auto-Generat ed Referral 12/18/2023 01/16/2025 1 1 [facility] for referral (narrative)* Diagnostic Procedure Only (Urgent) - Closed Specialty Diagnoses / Procedures Referred By Contac t Referred To Contact XR IMAGING Diagnoses Left hand pain Procedures XR HAND GENERAL 3V PA/LAT/OBL LEFT RADEX HAND MINIMUM 3 VIEWS Sasha Schroeder GOLD BLOWER.DRILL HAND [address] [place] [address] [place] [address] Referral ID Status Reason Start Date Expiration Date V isits Requested Visits Authorized [id number] Closed Auto-Generate d Referral 10/16/2021 11/15/2022 1 1 [facility] for referral (narrative)No reason for referral information availableWTrinity [facility] System Work Phone: Reason for visit Narrative* Diagnostic Procedure Only (Urgent) - Closed Specialty Diagnoses / Procedures Referred By Contac t Referred To Contact XR IMAGING Diagnoses Hand injuries, right, initial encounter Procedures XR HAND GENERAL 3V PA/LAT/OBL RIGHT RADEX HAND MINIMUM 3 VIEWS Ravinder Cervantes APRN.DRILL HAND [address] [place] [address] [place] [address] Referral ID Status Reason Start Date Expiration Date V isits Requested Visits Authorized [id number] Closed Auto-Generate d Referral 06/15/2022 07/15/2023 1 1 [facility] for visit Narrative* Diagnostic Procedure Only (Urgent) - Closed Specialty Diagnoses / Procedures Referred By Sherita t Referred To Contact XR IMAGING Diagnoses Left hand pain Procedures XR HAND GENERAL 3V PA/LAT/OBL LEFT RADEX HAND MINIMUM 3 VIEWS Sasha Schroeder, GOLD BLOWER.DRILL [place] [address] [place] [address] [place] [address] Referral ID Status Reason Start Date Expiration Date V isits Requested Visits Authorized [id number] Closed Auto-Generate d Referral 10/16/2021 11/15/2022 1 1 [facility] for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 criminally investigate or prosecute any alcohol or drug abuse patient.[facility] HospitalIn the event this information is protected by the Federal Confidentiality of Alcohol and Drug Abuse Patient Records regulations: The Federal rules restrict any use of the information to criminally investigate or prosecute any alcohol or drug abuse patient.[facility] HospitalIn the event this information is protected by the Federal Confidentiality of Alcohol and Drug Abuse Patient Records regulations: The Federal rules restrict any use of the information to criminally investigate or prosecute any alcohol or drug abuse patient.[facility] HospitalIn the event this information is protected by the Federal Confidentiality of Alcohol and Drug Abuse Patient Records regulations: The Federal rules restrict any use of the information to criminally investigate or prosecute any alcohol or drug abuse patient.[facility] HospitalIn the event this information is protected by the Federal Confidentiality of Alcohol and Drug Abuse Patient Records regulations: The Federal rules restrict any use of the information to criminally investigate or prosecute any alcohol or drug abuse patient.[facility] HospitalIn the event this information is protected by the Federal Confidentiality of Alcohol and Drug Abuse Patient Records regulations: The Federal rules restrict any use of the information to criminally investigate or prosecute any alcohol or drug abuse patient.[facility] HospitalIn the event this information is protected by the Federal Confidentiality of Alcohol and Drug Abuse Patient Records regulations: The Federal rules restrict any use of the information to criminally investigate or prosecute any alcohol or drug abuse patient.[facility] HospitalIn the event this information is protected by the Federal Confidentiality of Alcohol and Drug Abuse Patient Records regulations: The Federal rules restrict any use of the information to criminally investigate or prosecute any alcohol or drug abuse patient.[facility] HospitalIn the event this information is protected by the Federal Confidentiality of Alcohol and Drug Abuse Patient Records regulations: The Federal rules restrict any use of the information to criminally investigate or prosecute any alcohol or drug abuse patient.[facility] HospitalIn the event this information is protected by the Federal Confidentiality of Alcohol and Drug Abuse Patient Records regulations: The Federal rules restrict any use of the information to criminally investigate or prosecute any alcohol or drug abuse patient.[facility] HospitalIn the event this information is protected by the Federal Confidentiality of Alcohol and Drug Abuse Patient Records regulations: The Federal rules restrict any use of the information to criminally investigate or prosecute any alcohol or drug abuse patient.[facility] HospitalIn the event this information is protected by the Federal Confidentiality of Alcohol and Drug Abuse Patient Records regulations: The Federal rules restrict any use of the information to criminally investigate or prosecute any alcohol or drug abuse patient.[facility] HospitalIn the event this information is protected by the Federal Confidentiality of Alcohol and Drug Abuse Patient Records regulations: The Federal rules restrict any use of the information to criminally investigate or prosecute any alcohol or drug abuse patient.[facility] HospitalIn the event this information is protected by the Federal Confidentiality of Alcohol and Drug Abuse Patient Records regulations: The Federal rules restrict any use of the information to criminally investigate or prosecute any alcohol or drug abuse patient.[facility] HospitalIn the event this information is protected by the Federal Confidentiality of Alcohol and Drug Abuse Patient Records regulations: The Federal rules restrict any use of the information to criminally investigate or prosecute any alcohol or drug abuse patient.[facility] HospitalIn the event this information is protected by the Federal Confidentiality of Alcohol and Drug Abuse Patient Records regulations: The Federal rules restrict any use of the information to criminally investigate or prosecute any alcohol or drug abuse patient.[facility] HospitalIn the event this information is protected by the Federal Confidentiality of Alcohol and Drug Abuse Patient Records regulations: The Federal rules restrict any use of the information to criminally investigate or prosecute any alcohol or drug abuse patient.[facility] HospitalIn the event this information is protected by the Federal Confidentiality of Alcohol and Drug Abuse Patient Records regulations: The Federal rules restrict any use of the information to criminally investigate or prosecute any alcohol or drug abuse patient.[facility] HospitalIn the event this information is protected by the Federal Confidentiality of Alcohol and Drug Abuse Patient Records regulations: The Federal rules restrict any use of the information to criminally investigate or prosecute any alcohol or drug abuse patient.[facility] HospitalIn the event this information is protected by the Federal Confidentiality of Alcohol and Drug Abuse Patient Records regulations: The Federal rules restrict any use of the information to criminally investigate or prosecute any alcohol or drug abuse patient.[facility] HospitalIn the event this information is protected by the Federal Confidentiality of Alcohol and Drug Abuse Patient Records regulations: The Federal rules restrict any use of the information to criminally investigate or prosecute any alcohol or drug abuse patient.[facility] HospitalIn the event this information is protected by the Federal Confidentiality of Alcohol and Drug Abuse Patient Records regulations: The Federal rules restrict any use of the information to criminally investigate or prosecute any alcohol or drug abuse patient.[facility] HospitalIn the event this information is protected by the Federal Confidentiality of Alcohol and Drug Abuse Patient Records regulations: The Federal rules restrict any use of the information to criminally investigate or prosecute any alcohol or drug abuse patient.[facility] HospitalIn the event this information is protected by the Federal Confidentiality of Alcohol and Drug Abuse Patient Records regulations: The Federal rules restrict any use of the information to criminally investigate or prosecute any alcohol or drug abuse patient.[facility] HospitalIn the event this information is protected by the Federal Confidentiality of Alcohol and Drug Abuse Patient Records regulations: The Federal rules restrict any use of the information to criminally investigate or prosecute any alcohol or drug abuse patient.[facility] HospitalIn the event this information is protected by the Federal Confidentiality of Alcohol and Drug Abuse Patient Records regulations: The Federal rules restrict any use of the information to criminally investigate or prosecute any alcohol or drug abuse patient.[facility] HospitalIn the event this information is protected by the Federal Confidentiality of Alcohol and Drug Abuse Patient Records regulations: The Federal rules restrict any use of the information to criminally investigate or prosecute any alcohol or drug abuse patient.[facility] HospitalIn the event this information is protected by the Federal Confidentiality of Alcohol and Drug Abuse Patient Records regulations: The Federal rules restrict any use of the information to criminally investigate or prosecute any alcohol or drug abuse patient.[facility] HospitalIn the event this information is protected by the Federal Confidentiality of Alcohol and Drug Abuse Patient Records regulations: The Federal rules restrict any use of the information to criminally investigate or prosecute any alcohol or drug abuse patient.[facility] HospitalIn the event this information is protected by the Federal Confidentiality of Alcohol and Drug Abuse Patient Records regulations: The Federal rules restrict any use of the information to criminally investigate or prosecute any alcohol or drug abuse patient.[facility] HospitalIn the event this information is protected by the Federal Confidentiality of Alcohol and Drug Abuse Patient Records regulations: The Federal rules restrict any use of the information to criminally investigate or prosecute any alcohol or drug abuse patient.[facility] HospitalIn the event this information is protected by the Federal Confidentiality of Alcohol and Drug Abuse Patient Records regulations: The Federal rules restrict any use of the information to criminally investigate or prosecute any alcohol or drug abuse patient.[facility] HospitalIn the event this information is protected by the Federal Confidentiality of Alcohol and Drug Abuse Patient Records regulations: The Federal rules restrict any use of the information to criminally investigate or prosecute any alcohol or drug abuse patient.[facility] HospitalIn the event this information is protected by the Federal Confidentiality of Alcohol and Drug Abuse Patient Records regulations: The Federal rules restrict any use of the information to criminally investigate or prosecute any alcohol or drug abuse patient.[facility] HospitalIn the event this information is protected by the Federal Confidentiality of Alcohol and Drug Abuse Patient Records regulations: The Federal rules restrict any use of the information to criminally investigate or prosecute any alcohol or drug abuse patient.[facility] HospitalIn the event this information is protected by the Federal Confidentiality of Alcohol and Drug Abuse Patient Records regulations: The Federal rules restrict any use of the information to criminally investigate or prosecute any alcohol or drug abuse patient.[facility] HospitalIn the event this information is protected by the Federal Confidentiality of Alcohol and Drug Abuse Patient Records regulations: The Federal rules restrict any use of the information to criminally investigate or prosecute any alcohol or drug abuse patient.[facility] HospitalIn the event this information is protected by the Federal Confidentiality of Alcohol and Drug Abuse Patient Records regulations: The Federal rules restrict any use of the information to criminally investigate or prosecute any alcohol or drug abuse patient.[facility] HospitalIn the event this information is protected by the Federal Confidentiality of Alcohol and Drug Abuse Patient Records regulations: The Federal rules restrict any use of the information to criminally investigate or prosecute any alcohol or drug abuse patient.[facility] HospitalIn the event this information is protected by the Federal Confidentiality of Alcohol and Drug Abuse Patient Records regulations: The Federal rules restrict any use of the information to criminally investigate or prosecute any alcohol or drug abuse patient.[facility] HospitalIn the event this information is protected by the Federal Confidentiality of Alcohol and Drug Abuse Patient Records regulations: The Federal rules restrict any use of the information to criminally investigate or prosecute any alcohol or drug abuse patient.[facility] HospitalIn the event this information is protected by the Federal Confidentiality of Alcohol and Drug Abuse Patient Records regulations: The Federal rules restrict any use of the information to criminally investigate or prosecute any alcohol or drug abuse patient.[facility] HospitalIn the event this information is protected by the Federal Confidentiality of Alcohol and Drug Abuse Patient Records regulations: The Federal rules restrict any use of the information to criminally investigate or prosecute any alcohol or drug abuse patient.[facility] HospitalIn the event this information is protected by the Federal Confidentiality of Alcohol and Drug Abuse Patient Records regulations: The Federal rules restrict any use of the information to criminally investigate or prosecute any alcohol or drug abuse patient.[facility] HospitalIn the event this information is protected by the Federal Confidentiality of Alcohol and Drug Abuse Patient Records regulations: The Federal rules restrict any use of the information to criminally investigate or prosecute any alcohol or drug abuse patient.[facility] HospitalIn the event this information is protected by the Federal Confidentiality of Alcohol and Drug Abuse Patient Records regulations: The Federal rules restrict any use of the information to criminally investigate or prosecute any alcohol or drug abuse patient.[facility] HospitalIn the event this information is protected by the Federal Confidentiality of Alcohol and Drug Abuse Patient Records regulations: The Federal rules restrict any use of the information to criminally investigate or prosecute any alcohol or drug abuse patient.[facility] HospitalIn the event this information is protected by the Federal Confidentiality of Alcohol and Drug Abuse Patient Records regulations: The Federal rules restrict any use of the information to criminally investigate or prosecute any alcohol or drug abuse patient.[facility] HospitalIn the event this information is protected by the Federal Confidentiality of Alcohol and Drug Abuse Patient Records regulations: The Federal rules restrict any use of the information to criminally investigate or prosecute any alcohol or drug abuse patient.[facility] HospitalIn the event this information is protected by the Federal Confidentiality of Alcohol and Drug Abuse Patient Records regulations: The Federal rules restrict any use of the information to criminally investigate or prosecute any alcohol or drug abuse patient.[facility] Reason for Visit (unrecogniz ed section and content) Reason Comments Results Orders Reason Comments Refill Request Reason Comments Musculoskeletal Problem L hand and fifth finger pain x4 days Reason Comments Allied Health Visit DM Reason Comments F/U 3 Month Reason Onset Date Comments Refill Request 02/12/2022 Reason Comments Rash under L breast, with blistering and itchy x4 days Reason Comments Results Judie+ Reason Comments Blurred Vision Both Eyes Difficulty Reading Both Eyes type 2 diabetes mellitus without retinop athy Blood sugar: 240 02/22/2022 A1C: 10.7 11/08/2021 Reason Comments Follow Up Type 2 diabetes Specialty Diagnoses / Procedures Referred By Sherita t Referred To Contact Endocrinology Diagnoses Uncontrolled type 2 diabetes mellitus with hyperglycemia (HCC) Hypothyroidism, unspecified type Procedures CONSULT TO ENDOCRINOLOGY OFFICE/OUTPATIENT NEW HIGH MDM 60-74 MINUTES Papa Douglass MD [address] [place] [address] Referral ID Status Reason Start Date Expiration Date Visits Requested Visits Authorized [id number] Pending Review PCP Requested Referral 02/08/2022 02/08/2023 1 1 Reason Comments Follow Up Lab follow up Reason Comments Dry Eye Syndrome Follow Up Refraction Reason Comments Patient Question Medication Problem Reason Comments Follow Up DM and Labs Reason Comments Sinus Problem sinus pressure, head ache, right ear pain and vomiting x 3 days Reason Comments Acute Visit sinus issues Reason Comments Patient Question Reason Comments Same Day Appointment swelling in legs wi th redness x 2 weeks getting worse Reason Comments Referral report Reason Comments UTI Reason Comments Results Reason Comments new patient consult- antibiotic allergie s Specialty Diagnoses / Procedures Referred By Contac t Referred To Contact Allergy Diagnoses Allergy to multiple antibiotics Procedures CONSULT TO ALLERGY/IMMUNOLOGY OFFICE/OUTPATIENT NEW HIGH MDM 60-74 MINUTES Mela Garcia APRN.[facility] [address] [place] [address] Referral ID Status Reason Start Date Expiration Date Visits Requested Visits Authorized [id number] Pending Review PCP Requested Referral 08/16/2022 08/14/2023 1 1 Reason Comments Patient Update Reason Comments Results Clinical Update Reason Comments Headache ROY, chills, congesti on, swelling in feet and hands x 4 days Reason Comments Dry Eye(s) Both Eyes Floaters Both Eyes Diabetes Blood sugar: 306A1c: Got it rechecked this morning, blood work is not ready yet Difficulty Reading Both Eyes Uses magnif evon glass to see small print Reason Comments Follow Up 3 month DM and thyro id Reason Comments Results Labs Reason Comments iron dose Reason Comments Acute Visit cough Reason Comments Results Reason Comments FMLA Paperwork Reason Onset Date Comments Refill Request 08/20/2022 Reason Comments Diabetes Reason Comments Appointment Reason Comments Appointment Primary Care resched ule Reason Comments Consult Reason Onset Date Comments Refill Request 11/20/2022 Reason Comments Dry Eye Syndrome Follow Up Reason Comments high blood sugars Reason Comments Forms 3 sets of forms re: disability Reason Comments Hand Pain Bilateral hand pain, swelling, twitching, numbness to tips of finger Reason Comments Results Urine Orders Reason Comments New Patient Reason Comments Medication Question Reason Onset Date Comments Hospital F/U Immunizations 05/03/2023 Flu vaccination Reason Comments Consult Colitis, colonoscopy screening Specialty Diagnoses / Procedures Referred By Contac t Referred To Contact General Surgery Diagnoses Colitis Encounter for screening colonoscopy Procedures CONSULT TO GENERAL SURGERY OFFICE/OUTPATIENT NEW HIGH [facility] 60-74 MINUTES Papa Douglass MD [address] [place] [address] Referral ID Status Reason Start Date Expiration Date Visits Requested Visits Authorized [id number] Pending Review PCP Requested Referral 3 05/02/2024 1 1 Reason Comments Consult Reason Comments Abdominal Pain Reason Comments Labs Only Reason Comments New Patient Specialty Diagnoses / Procedures Referred By Contac t Referred To Contact Surgical Oncology Diagnoses Other malignant neuroendocrine tumors Joseluis Riggins, [facility] [address] [place] [address] Blas Rod MD [address] [place] [address] Referral ID Status Reason Start Date Expiration Date Visits Requested Visits Authorized [id number] New Request Surgical Evaluation 04/16/2024 05/11/2025 1 1 Specialty Diagnoses / Procedures Referred By Sherita mcguire Referred To Contact Diagnoses Neuroendocrine tumor Procedures UPPER EUS [place] ESOPHAGOGASTRODUODENOSCOPY US SCOPE W/ADJ STRXRS Karolina Piedra APRN-CNP, [facility] [address] [place] [address] Referral ID Status Reason Start Date Expiration Date V isits Requested Visits Authorized [id number] New Request 05/07/2024 06/01/2025 1 1 Reason Comments Follow-up Reason Comments New Patient Pt was hospitalized in March for bleeding tumor - Dr Rod referred for systemic therapy - not a candidate for surgery Specialty Diagnoses / Procedures Referred By Sherita mcguire Referred To Contact Oncology Diagnoses Neuroendocrine tumor Karolina Piedra APRN-CNP, [facility] [address] [place] [address] Referral ID Status Reason Start Date Expiration Date V isits Requested Visits Authorized [id number] New Request 07/09/2024 08/03/2025 1 1 Specialty Diagnoses / Procedures Referred By Sherita mcguire Referred To Contact Diagnoses Neuroendocrine tumor Procedures NUC PET HEAD TO THIGH Karolina Piedra APRN-CNP, [facility] [address] [place] [address] Referral ID Status Reason Start Date Expiration Date Visits Re quested Visits Authorized [id number] Closed 07/02/2024 07/27/2025 1 1 Reason Onset Date Comments Appointment 07/31/2024 Reason Comments Follow-up New Patient follow u pHas been doing ok since last visit Results Labs and scans compl eted on 08/14/24 Reason Onset Date Comments Lab Review 09/21/2024 Reason Comments Foot Pain (Midfoot) Reason Comments Follow-up (Please send link to listed mobile # [phone] C/o having issues with acid reflux and she was recently diagnosed with COVID and is she is currently on treatment for this Care Teams (unrecognized sec tion and content) Gran[employer] Terrazzo Finisher Relationship Specialty Start Date End Date Papa Douglass MD [address] [facility] [place] [place] [address] PCP - General Family Practice 04/27/10 [facility] [address] [facility] [place] [address] Pharmacist Pharmacy 11/13/19 Jessica RoseResearch [facility] [address] [facility] [place] [address] Pharmacist Pharmacy 02/16/21 [employer] Terrazzo Finisher Relationship Specialty Start Date End Date Papa Douglass MD [address] [facility] [place] [address] PCP - General Family Practice 04/27/10 Kiley Randall, [facility] [address] [facility] [place] [address] Pharmacist Pharmacy 11/13/19 Jessica Rose, [facility] [address] [facility] [place] [address] Pharmacist Pharmacy 02/16/21 Gran[employer] Terrazzo Finisher Relationship Specialty Start Date End Date Papa Douglass MD [address] [facility] [place] [address] PCP - General Family Practice 04/27/10 Kiley Randall, [facility] [address] [facility] [place] [address] Pharmacist Pharmacy 11/13/19 Jessica Rose, [facility] [address] [place] [address] Pharmacist Pharmacy 02/16/21 Gran[employer] Terrazzo Finisher Relationship Specialty Start Date End Date Papa Douglass MD [address] [place] [address] PCP - General Family Practice 04/27/10 Tonia AngelnoahResearch [facility] [address] [facility] [place] [place] [address] Pharmacist Pharmacy 11/13/19 Milton, JessicaResearch [facility] [address] [facility] [place] [address] Pharmacist Pharmacy 02/16/21 [employer]razzo Finisher Relationship Specialty Start Date End Date Papa Douglass MD [address] [facility] [place] [address] PCP - General Family Practice 04/27/10 Tonia Angelnoah, [facility] [address] [facility] [place] [address] Pharmacist Pharmacy 11/13/19 Milton JessicaResearch [facility] [address] [facility] [place] [address] Pharmacist Pharmacy 02/16/21 Gran[employer] Terrazzo Finisher Relationship Specialty Start Date End Date Papa Douglass MD [address] [facility] [place] [address] PCP - General Family Practice 04/27/10 Willemangela AngelnoahResearch [facility] [address] [facility] [place] [address] Pharmacist Pharmacy 11/13/19 Milton Jessica, [facility] [address] [place] [address] Pharmacist Pharmacy 02/16/21 [employer]ra[employer] Finisher Relationship Specialty Start Date End Date Papa Douglass MD [address] [facility] [place] [address] PCP - General Family Practice 04/27/10 Kiley Randall, [facility] [address] [facility] [place] [address] Pharmacist Pharmacy 11/13/19 CastlewoodJessica, [facility] [address] [facility] [place] [address] Pharmacist Pharmacy 02/16/21 Gran[employer] Terrazzo Finisher Relationship Specialty Start Date End Date Papa Douglass MD [address] [place] [address] PCP - General Family Practice 04/27/10 Tonia Angelnoha, [facility] [address] [facility] [place] [address] Pharmacist Pharmacy 11/13/19 [place], Jessica, [facility] [address] [facility] [place] [address] Pharmacist Pharmacy 02/16/21 Granite Chip Terrazzo Finisher Relationship Specialty Start Date End Date Papa Douglass MD [address] [place] [address] PCP - General Family Practice 04/27/10 Tonia Angelnoah, [facility] [address] [facility] [place] [address] Pharmacist Pharmacy 11/13/19 Milton, Jessica, [facility] [address] [facility] [place] [address] Pharmacist Pharmacy 02/16/21 Granite Chip Terrazzo Finisher Relationship Specialty Start Date End Date Papa Douglass MD [address] [place] [address] PCP - General Family Practice 04/27/10 Tonia Angelnoah, [facility] [address] [facility] [place] [address] Pharmacist Pharmacy 11/13/19 Milton, Jessica, [facility] [address] [place] [address] Pharmacist Pharmacy 02/16/21 Gran[employer] Chip Terrazzo Finisher Relationship Specialty Start Date End Date Papa Douglass MD [address] [place] [address] PCP - General Family Practice 04/27/10 Kiley RandallResearch [facility] [address] [place] [address] Pharmacist Pharmacy 11/13/19 Jessica Rose, [facility] [address] [place] [address] Pharmacist Pharmacy 02/16/21 Gran[employer] Terra[employer] Finisher Relationship Specialty Start Date End Date Papa Douglass MD [address] [place] [address] PCP - General Family Practice 04/27/10 Kiley RandallResearch [facility] [address] [place] [address] Pharmacist Pharmacy 11/13/19 Jessica Rose, [facility] [address] [facility] [place] [address] Pharmacist Pharmacy 02/16/21 [employer] Terra[employer] Finisher Relationship Specialty Start Date End Date Papa Douglass MD [address] [place] [address] PCP - General Family Medicine 04/27/10 Kiley Randall, [facility] [address] [facility] [place] [address] Pharmacist Pharmacy 11/13/19 Jessica Rose, [facility] [address] [place] [address] Pharmacist Pharmacy 02/16/21 Granite [employer] Terra[employer] Finisher Relationship Specialty Start Date End Date Papa Douglass MD [address] [facility] [place] [address] PCP - General Family Medicine 04/27/10 Tonia Kiley, [facility] [address] [facility] [place] [address] Pharmacist Pharmacy 11/13/19 Milton JessicaResearch [facility] [address] [facility] [place] [address] Pharmacist Pharmacy 02/16/21 Gran[employer] Terra[employer] Finisher Relationship Specialty Start Date End Date Papa Douglass MD [address] [facility] [place] [address] PCP - General Family Medicine 04/27/10 Kiley Randall, [facility] [address] [facility] [place] [address] Pharmacist Pharmacy 11/13/19 Libby Roseily, [facility] [address] [facility] [place] [address] Pharmacist Pharmacy 02/16/21 Gran[employer] Chip Terrazzo Finisher Relationship Specialty Start Date End Date Papa Douglass MD [address] [facility] [place] [address] PCP - General Family Medicine 04/27/10 Tonia Angelnoah, [facility] [address] [facility] [place] [address] Pharmacist Pharmacy 11/13/19 [place], Jessica, [facility] [address] [facility] [place] [address] Pharmacist Pharmacy 02/16/21 Granite [employer] Terrazzo Finisher Relationship Specialty Start Date End Date Papa Douglass MD [address] [place] [address] PCP - General Family Medicine 04/27/10 Kiley Randall, [facility] [address] [facility] [place] [address] Pharmacist Pharmacy 11/13/19 Jessica Rose, [facility] [address] [facility] [place] [address] Pharmacist Pharmacy 02/16/21 Gran[employer] Chip Terrazzo Finisher Relationship Specialty Start Date End Date Papa Douglass MD [address] [facility] [place] [place] [address] PCP - General Family Medicine 04/27/10 Kiley Randall, [facility] [address] [facility] [place] [address] Pharmacist Pharmacy 11/13/19 Jessica Rose, [facility] [address] [facility] [place] [place] [address] Pharmacist Pharmacy 02/16/21 Granite Chip Terrazzo Finisher Relationship Specialty Start Date End Date Papa Douglass MD [address] [facility] [place] [place] [address] PCP - General Family Medicine 04/27/10 Kiley Randall, [facility] [address] [facility] [place] [place] [address] Pharmacist Pharmacy 11/13/19 Jessica Rose, [facility] [address] [facility] [place] [place] [address] Pharmacist Pharmacy 02/16/21 Team Status: Active Member Role Status Dates Dr. Papa Douglass MD Family Provider Active Dr. Papa Douglass MD Primary Care Provider Active Team Status: Inactive Member Role Status Dates Dr. Papa Douglass MD Primary Care Provider Active Dr. Darell Mendoza DO Attending Provider, Emergency Pro vider Active Team Status: Inactive Member Role Status Dates Dr. Papa Douglass MD Primary Care Provider Active Dr. Moe Rutledge DO Attending Provider, Emergency P rovider Active Team Status: Inactive Member Role Status Dates Dr. Papa Douglass MD Primary Care Provider Active Dr. Natalya Chun MD Emergency Provider Active Gran[employer] Chip Terrazzo Finisher Relationship Specialty Start Date End Date Papa Douglass MD [address] [facility] [place] [address] PCP - General Family Medicine 04/27/10 Kiley Randall, [facility] [address] [place] [address] Pharmacist Pharmacy 11/13/19 Jessica Rose, [facility] [address] [facility] [place] [address] Pharmacist Pharmacy 02/16/21 Granite Chip Terrazzo Finisher Relationship Specialty Start Date End Date Papa Douglass MD [address] [facility] [place] [address] PCP - General Family Medicine 04/27/10 Kiley Randall, [facility] [address] [facility] [place] [address] Pharmacist Pharmacy 11/13/19 Jessica Rose, [facility] [address] [facility] [place] [address] Pharmacist Pharmacy 02/16/21 Granite Chip Terrazzo Finisher Relationship Specialty Start Date End Date Papa Douglass MD [address] [place] [address] PCP - General Family Medicine 04/27/10 Kiley Randall, [facility] [address] [facility] [place] [address] Pharmacist Pharmacy 11/13/19 Jessica Rose, [facility] [address] [facility] [place] [address] Pharmacist Pharmacy 02/16/21 Gran[employer] Chip Terrazzo Finisher Relationship Specialty Start Date End Date Papa Douglass MD [address] [facility] [place] [address] PCP - General Family Medicine 04/27/10 Kiley Randall, [facility] [address] [facility] [place] [address] Pharmacist Pharmacy 11/13/19 Jessica RoseResearch [facility] [address] [facility] [place] [place] [address] Pharmacist Pharmacy 02/16/21 Team Status: Inactive Member Role Status Dates Dr. Papa Douglass MD Primary Care Provider Active Dr. Natalya Chun MD Attending Provider, Emergency Provider Active Team Status: Inactive Member Role Status Dates Dr. Papa Douglass MD Primary Care Provider Active Mela Garcia PRIMARY HEALTH CARE NURSE, PRIMARY HEALTH CARE NURSE-C Attending Provider, Referring Pro vider Active Team Status: Inactive Member Role Status Dates Dr. Papa Douglass MD Primary Care Provider Active Dr. Hiram Hernandez DO Emergency Provider Active Gran[employer] Terrazzo Finisher Relationship Specialty Start Date End Date Papa Douglass MD [address] [facility] [place] [place] [address] PCP - General Family Medicine 04/27/10 [facility]Angel [facility] [address] [facility] [place] [place] [address] Pharmacist Pharmacy 11/13/19 Jessica RoseResearch [facility] [address] [facility] [place] [address] Pharmacist Pharmacy 02/16/21 Granite Chip Terrazzo Finisher Relationship Specialty Start Date End Date Papa Douglass MD [address] [facility] [place] [address] PCP - General Family Medicine 04/27/10 Angel Randall, [facility] [address] [facility] [place] [address] Pharmacist Pharmacy 11/13/19 Jessica Rose, [facility] [address] [facility] [place] [place] [address] Pharmacist Pharmacy 02/16/21 Granite Chip Terrazzo Finisher Relationship Specialty Start Date End Date Papa Douglass MD [address] [facility] [place] [address] PCP - General Family Medicine 04/27/10 Kiley RandallResearch [facility] [address] [facility] [place] [address] Pharmacist Pharmacy 11/13/19 Jessica RoseResearch [facility] [address] [facility] [place] [place] [address] Pharmacist Pharmacy 02/16/21 Granite Chip Terrazzo Finisher Relationship Specialty Start Date End Date Papa Douglass MD [address] [facility] [place] [address] PCP - General Family Medicine 04/27/10 Kiley Randall, [facility] [address] [facility] [place] [address] Pharmacist Pharmacy 11/13/19 Jessica Rose, [facility] [address] [facility] [place] [address] Pharmacist Pharmacy 02/16/21 Granite Chip Terrazzo Finisher Relationship Specialty Start Date End Date Papa Douglass MD [address] [facility] [place] [address] PCP - General Family Medicine 04/27/10 WillemKiley millerResearch [facility] [address] [facility] [place] [place] [address] Pharmacist Pharmacy 11/13/19 Jessica Rose, [facility] [address] [facility] [place] [address] Pharmacist Pharmacy 02/16/21 Team Status: Inactive Member Role Status Dates Dr. Papa Douglass MD Primary Care Provider Active Dr. Hiram Hernandez DO Attending Provider, Emergency Provider Active Team Status: Inactive Member Role Status Dates Dr. Papa Douglass MD Primary Care Provider Active Dr. Sid Rivera MD Emergency Provider Active Team Status: Inactive Member Role Status Dates Dr. Papa Douglass MD Primary Care Provider Active Dr. Sid Rivera MD Attending Provider, Emergency Provider Active Team Status: Inactive Member Role Status Dates Dr. Papa Douglass MD Primary Care Provider Active Dr. Hiram Hernandez DO Referring Provider, Emergency Provider Active Gran[employer] Terrazzo Finisher Relationship Specialty Start Date End Date Papa Douglass MD [address] [facility] [place] [address] PCP - General Family Medicine 04/27/10 [facility] Angel, [facility] [address] [facility] [place] [address] Pharmacist Pharmacy 11/13/19 Milton, Jessica, [facility] [address] [facility] [place] [address] Pharmacist Pharmacy 02/16/21 Granite Chip Terrazzo Finisher Relationship Specialty Start Date End Date Papa Douglass MD [address] [facility] [place] [address] PCP - General Family Medicine 04/27/10 [facility] Angel, [facility] [address] [facility] [place] [address] Pharmacist Pharmacy 11/13/19 Milton, Jessica, [facility] [address] [facility] [place] [address] Pharmacist Pharmacy 02/16/21 Granite Chip Terrazzo Finisher Relationship Specialty Start Date End Date Papa Douglass MD [address] [place] [address] PCP - General Family Medicine 04/27/10 Willem Kiley, [facility] [address] [facility] [place] [address] Pharmacist Pharmacy 11/13/19 CastlewoodLibby griggsily, [facility] [address] [place] [address] Pharmacist Pharmacy 02/16/21 Gran[employer] Chip Terrazzo Finisher Relationship Specialty Start Date End Date Papa Douglass MD [address] [facility] [place] [address] PCP - General Family Medicine 04/27/10 Kiley RandallResearch [facility] [address] [facility] [place] [address] Pharmacist Pharmacy 11/13/19 Jessica Rose, [facility] [address] [facility] [place] [address] Pharmacist Pharmacy 02/16/21 Granite Chip Terrazzo Finisher Relationship Specialty Start Date End Date Papa Douglass MD [address] [facility] [place] [address] PCP - General Family Medicine 04/27/10 Kiley Randall, [facility] [address] [facility] [place] [address] Pharmacist Pharmacy 11/13/19 Jessica Rose, [facility] [address] [facility] [place] [address] Pharmacist Pharmacy 02/16/21 Team Status: Inactive Member Role Status Dates Dr. Papa Douglass MD Primary Care Provider Active Dr. Hiram Hernandez DO Attending Provid er, Referring Provider, Emergency Provider Active Team Status: Inactive Member Role Status Dates Dr. Papa Douglass MD Primary Care Provider Active Dr. Velasquez Hill DO Emergency Provider Active Granite Chip Terrazzo Finisher Relationship Specialty Start Date End Date Papa Douglass MD [address] [facility] [place] [place] [address] PCP - General Family Medicine 04/27/10 Gran[employer] Chip Terrazzo Finisher Relationship Specialty Start Date End Date Papa Douglass MD [address] [facility] [place] [address] PCP - General Family Medicine 04/27/10 Gran[employer] Terrazzo Finisher Relationship Specialty Start Date End Date Papa Douglass MD [address] [facility] [place] [place] [address] PCP - General Family Medicine 04/27/10 [employer] Terrazzo Finisher Relationship Specialty Start Date End Date Papa Douglass MD [address] [place] [address] PCP - General Family Medicine 04/27/10 Team Status: Inactive Member Role Status Dates Dr. Papa Douglass MD Primary Care Provider Active Dr. Velasquez Hill DO Attending Provider, Emergency Anderson mckeon Active Team Status: Inactive Member Role Status Dates Dr. Papa Douglass MD Primary Care Provider Active Dr. Pranav Ward MD Emergency Provider Active [employer] Terra[employer] Finisher Relationship Specialty Start Date End Date Papa Douglass MD [address] [place] [address] PCP - General Family Medicine 04/27/10 [employer] Terrazzo Finisher Relationship Specialty Start Date End Date Papa Douglass MD [address] [place] [address] PCP - General Family Medicine 04/27/10 Gran[employer] Terrazzo Finisher Relationship Specialty Start Date End Date Papa Douglass MD [address] [place] [address] PCP - General Family Medicine 04/27/10 Gran[employer] Chip Terrazzo Finisher Relationship Specialty Start Date End Date Papa Douglass MD [address] [facility] [place] [place] [address] PCP - General Family Medicine 04/27/10 Gran[employer] Terrazzo Finisher Relationship Specialty Start Date End Date Papa Douglass MD [address] [facility] [place] [address] PCP - General Family Medicine 04/27/10 Team Status: Inactive Member Role Status Dates Dr. Papa Douglass MD Primary Care Provider, Referr ing Provider Active DAVID Rebollar Attending Provider Active Team Status: Active Member Role Status Dates Dr. Papa Douglass MD Primary Care Provider Active Dr. Candy Archuleta DO Emergency Provider Active Dr. Cecilia Villa DO Admit Provider, Att ending Provider, Other Provider Active Team Status: Active Member Role Status Dates Dr. Papa Douglass MD Primary Care Provider Active Dr. Nathalie Kelsey MD Attending Provider Active Team Status: Active Member Role Status Dates Dr. Papa Douglass MD Primary Care Provider Active Dr. Candy Archuleta DO Emergency Provider Active Dr. Cecilia Villa DO Admit Provider, Other Provider Ac tive Dr. Sergo Bustillos MD Attending Provider, Other Provider Active Team Status: Inactive Member Role Status Dates Dr. Papa Douglass MD Primary Care Provider Active Dr. Pranav Ward MD Attending Provider, Emergency Provi sourav Active Team Status: Inactive Member Role Status Dates Dr. Papa Douglass MD Primary Care Provider Active Dr. Candy Archuleta DO Emergency Provider Active Dr. Cecilia Villa DO Admit Provider, Other Provider Ac tive Dr. Sergo Bustillos MD Attending Provider Active Team Status: Active Member Role Status Dates Dr. Papa Douglass MD Primary Care Provider Active DAVID Rebollar Attending Provider, Referring Pr ovider Active Gran[employer] Terrazzo Finisher Relationship Specialty Start Date End Date Papa Douglass MD [address] [place], [place] [address] PCP - General Family Medicine 04/27/10 [employer] Chip Terrazzo Finisher Relationship Specialty Start Date End Date Papa Douglass MD [address] [place], [place] [address] PCP - General Family Medicine 04/27/10 Gran[employer] Chip Terrazzo Finisher Relationship Specialty Start Date End Date Papa Douglass MD [address] [place], [place] [address] PCP - General Family Medicine 04/27/10 Granite Chip Terrazzo Finisher Relationship Specialty Start Date End Date Papa Douglass MD [address] [facility] [place] [address] PCP - General Family Medicine 04/27/10 Gran[employer] Chip Terrazzo Finisher Relationship Specialty Start Date End Date Papa Douglass MD [address] [facility] [place] [address] PCP - General Family Medicine 04/27/10 Gran[employer] Chip Terrazzo Finisher Relationship Specialty Start Date End Date Papa Douglass MD [address] [facility] [place] [address] PCP - General Family Medicine 04/27/10 Granite Chip Terrazzo Finisher Relationship Specialty Start Date End Date Papa Douglass MD [address] [facility] [place] [address] PCP - General Family Medicine 04/27/10 Kiley Randall, [facility] [address] [facility] [place] [address] Pharmacist Pharmacy 11/13/19 12/11/22 Jessica Rose[facility] [address] [facility] [place] [address] Pharmacist Pharmacy 02/16/21 12/11/22 Granite Chip Terrazzo Finisher Relationship Specialty Start Date End Date Papa Douglass MD [address] [facility] [place] [place] [address] PCP - General Family Medicine 04/27/10 Kiley Randall, Formerly [facility] [address] [facility] [place] [address] Pharmacist Pharmacy 11/13/19 12/11/22 Jessica Rose, Formerly [facility] [address] [place] [address] Pharmacist Pharmacy 02/16/21 12/11/22 Granite Chip Terrazzo Finisher Relationship Specialty Start Date End Date Vero Ortez NP [address] [facility] [place] [address] PCP - General Nurse Practitioner - Adult Health 04/16/24 [facility] [address] [place] [address] Oncologist Medical Oncology 04/16/24 Natalya Saavedra, RN Registered Nurse 04/16/24 Rylee Weaver LSW Re Recording Mixer Social Work 04/20/24 Bruna Frey LISW Re Recording Mixer 04/20/24 Jaziel Drake MD [address] [place] [phone] Clinical Field Specialist Nurse Practitioner - Family 05/07/24 Mari Kaba, cookie mixer helperFoot Caster Oncology 05/07/24 Granite Chip Terrazzo Finisher Relationship Specialty Start Date End Date Vero Ortez NP [address] [place] [place] [address] PCP - General Nurse Practitioner - [facility] 04/16/24 [facility] [address] [place] [address] Oncologist Medical Oncology 04/16/24 Natalya Saavedra, ALFONZO Registered Nurse 04/16/24 Rylee Weaver LSW Re Recording Mixer Social Work 04/20/24 Bruna Frey LISW Re Recording Mixer 04/20/24 Jaziel Drake MD [address] [place] [phone] Clinical Field Specialist Nurse Practitioner - Family 05/07/24 Mari Kaba, cookie mixer helperFoot Caster Oncology 05/07/24 Granite Chip Terrazzo Finisher Relationship Specialty Start Date End Date Vero Ortez NP [address] [place] [address] PCP - General Nurse Practitioner - Adult Health 04/16/24 Joseluis Riggins [facility] [address], [place] [address] Oncologist Medical Oncology 04/16/24 Natalya Saavedra, ALFONZO Registered Nurse 04/16/24 Rylee Weaver, [facility] Re Recording Mixer Social Work 04/20/24FebBruna pulido LISW Re Recording Mixer 04/20/24 Jaziel Drake MD [address] [place] [phone] Clinical Field Specialist Nurse Practitioner - Family 05/07/24 Mari Kaba, cookie mixer helperFoot Caster Oncology 05/07/24 Granite Chip Terrazzo Finisher Relationship Specialty Start Date End Date Vero Ortez NP [address] [facility] [address] PCP - General Nurse Practitioner - Adult Health 04/16/24 Joseluis Riggins [facility] [address], [place] [address] Oncologist Medical Oncology 04/16/24 Natalya Saavedra, ALFONZO Registered Nurse 04/16/24 Rylee Weaver LSW Re Recording Mixer Social Work 04/20/24 Bruna Frey LISW Re Recording Mixer 04/20/24 Jaziel Drake MD [address] [place] [phone] Clinical Field Specialist Nurse Practitioner - Family 05/07/24 Gia Kilgore, cookie mixer helper Medical Oncology 07/30/24 Granite Chip Terrazzo Finisher Relationship Specialty Start Date End Date Vero Ortez NP [address] [place] [address] PCP - General Nurse Practitioner - Adult Health 04/16/24 Joseluis Riggins [facility] [address], [place] [phone] Oncologist Medical Oncology 04/16/24 Natalya Saavedra, RN Registered Nurse 04/16/24 Rylee Weaver LSW Re Recording Mixer Social Work 04/20/24 Bruna Frey LISW Re Recording Mixer 04/20/24 Jaziel Drake MD [address] [place] [phone] Clinical Field Specialist Nurse Practitioner - Family 05/07/24 Gia Kilgore, cookie mixer helper Medical Oncology 07/30/24 Granite Chip Terrazzo Finisher Relationship Specialty Start Date End Date Vero Ortez NP [address] [place] [facility] [place] [address] PCP - General Nurse Practitioner - Adult Health 04/16/24 Joseluis Riggins [facility] [address] [place] [address] Oncologist Medical Oncology 04/16/24 Natalya Saavedra, RN Registered Nurse 04/16/24 Rylee Weaver, [facility] Re Recording Mixer Social Work 04/20/24 [facility] LISW Re Recording Mixer 04/20/24 Jaziel Drake MD [address] [place] [phone] Clinical Field Specialist Nurse Practitioner - Family 05/07/24 Gia Kilgore, cookie mixer helper Medical Oncology 07/30/24 Granite Chip Terrazzo Finisher Relationship Specialty Start Date End Date Vero Ortez NP [address] [place] [facility] [place] [address] PCP - General Nurse Practitioner - Adult Health 04/16/24 Joseluis Riggins [facility] [address], [place] [phone] Oncologist Medical Oncology 04/16/24 Natalya Saavedra, ALFONZO Registered Nurse 04/16/24 Rylee Weaver LSW Re Recording Mixer Social Work 04/20/24FebBruna pulido LISW Re Recording Mixer 04/20/24 Jaziel Drake MD [address] [place] [phone] Clinical Field Specialist Nurse Practitioner - [facility] 05/07/24 Gia Kilgore, cookie mixer helper Medical Oncology 07/30/24 07/30/24 Granite Chip Terrazzo Finisher Relationship Specialty Start Date End Date Vero Ortez NP [address] [place] [address] PCP - General Nurse Practitioner - Adult Health 04/16/24 Joseluis Riggins [facility] [address], [place] [address] Oncologist Medical Oncology 04/16/24 Natalya Saavedra, ALFONZO Registered Nurse 04/16/24 Rylee Weaver LSW Re Recording Mixer Social Work 04/20/24FebBruna pulido LISW Re Recording Mixer 04/20/24 Jaziel Drake MD [address] [place] [phone] Clinical Field Specialist Nurse Practitioner - [facility] 05/07/24 Gia Kilgore cookie mixer helper Medical Oncology 07/30/24 07/30/24 Granite Chip Terrazzo Finisher Relationship Specialty Start Date End Date Vero Ortez NP [address] [place] [address] PCP - General Nurse Practitioner - Adult Health 04/16/24 Joseluis Riggins [facility] [address], [place] [phone] Oncologist Medical Oncology 04/16/24 Natalya Saavedra, ALFONZO Registered Nurse 04/16/24 Rylee Weaver LSW Re Recording Mixer Social Work 04/20/24 Bruna Frey LISW Re Recording Mixer 04/20/24 Jaziel Drake MD [address] [place] [phone] Clinical Field Specialist Nurse Practitioner - Family 05/07/24 Granite Chip Terrazzo Finisher Relationship Specialty Start Date End Date Vero Ortez NP [address] [place] [facility] [place] [address] PCP - General Nurse Practitioner - Adult Health 04/16/24 [facility] [address] [place] [address] Oncologist Medical Oncology 04/16/24 Natalya Saavedra, RN Registered Nurse 04/16/24 Rylee Weaver LSW Re Recording Mixer Social Work 04/20/24 Bruna Frey LISW Re Recording Mixer 04/20/24 Jaziel Drake MD [address] [place] [phone] Clinical Field Specialist Nurse Practitioner - [facility] 05/07/24 Granite Chip Terrazzo Finisher Relationship Specialty Start Date End Date Vero Ortez NP [address] [facility] [address] PCP - General Nurse Practitioner - [facility] 04/16/24 [facility] [address] [place] [address] Oncologist Medical Oncology 04/16/24 Natalya Saavedra, ALFONZO Registered Nurse 04/16/24 Rylee Weaver LSW Re Recording Mixer Social Work 04/20/24 Bruna Frey LISW Re Recording Mixer 04/20/24 Jaziel Drake MD [address] [place] [phone] Clinical Field Specialist Nurse Practitioner - Family 05/07/24 Granite Chip Terrazzo Finisher Relationship Specialty Start Date End Date Vero Ortez NP [address] [place] [address] PCP - General Nurse Practitioner - Adult Health 04/16/24 [facility] [address], [place] [address] [phone] Oncologist Medical Oncology 04/16/24 Natalya Saavedra, RN Registered Nurse 04/16/24 Rylee Weaver, [facility] Re Recording Mixer Social Work 04/20/24 [facility] L[facility] Re Recording Mixer 04/20/24 Jaziel Drake MD [address] [place] [phone] Clinical Field Specialist Nurse Practitioner - [facility] 05/07/24 Granite Chip Terrazzo Finisher Relationship Specialty Start Date End Date Vero Ortez NP [address] [place] [address] PCP - General Nurse Practitioner - Adult Health 04/16/24 [facility] [address], [place] [address] [phone] Oncologist Medical Oncology 04/16/24 Natalya Saavedra, RN Registered Nurse 04/16/24 Rylee Weaver, [facility] Re Recording Mixer Social Work 04/20/24FebBruna wright LISW Re Recording Mixer 04/20/24 Jaziel Drake MD [address] [place] [phone] Clinical Field Specialist Nurse Practitioner - [facility] 05/07/24 Granite Chip Terrazzo Finisher Relationship Specialty Start Date End Date Vero Ortez NP [address] [facility] [address] PCP - General Nurse Practitioner - Adult Health 04/16/24 [facility] [address] [place], [place] [address] [phone] Oncologist Medical Oncology 04/16/24 Natalya Saavedra, ALFONZO Registered Nurse 04/16/24 Rylee Weaver LSW Re Recording Mixer Social Work 04/20/24 Bruna Frey LISW Re Recording Mixer 04/20/24 Jaziel Drake MD [address] [place] [address] Clinical Field Specialist Nurse Practitioner - Family 05/07/24 Granite Chip Terrazzo Finisher Relationship Specialty Start Date End Date Papa Douglass MD [address] [place] [address] PCP - General Family Medicine 04/27/10 Vero Ortez CNP [address] [place] [address] [place] [address] Referring Family Medicine 04/07/24 Coco Waters APRN.DRILL HAND [address] [place], [place] [address] Auto Crane Driver Family Medicine 06/28/24 Feliciano Nunez APRN.DRILL HAND [address] [place], [place] [address] Auto Crane Driver Family Medicine 07/07/24 Team Status: Active Member Role Status Dates DARLING KWAN Primary Care Provider Active Team Status: Inactive Member Role Status Dates DARLING KWAN Primary Care Provider Active Start: June 02, 2024 End: June 02, 2024 Dr. Ralph Singh MD Attending Provider Active Start: June 02, 2024 End: June 02, 2024 Dr. Ralph Singh MD Referring Provider Active Start: June 02, 2024 End: June 02, 2024 Team Status: Inactive Member Role Status Dates DARLING KWAN Primary Care Provider Active Start: June 08, 2024 End: June 08, 2024 DARLING KWAN Referring Provider Active Sta rt: June 08, 2024 End: June 08, 2024 DAVID Rebollar Attending Provider Active Start: June 08, 2024 End: June 08, 2024 Team Status: Inactive Member Role Status Dates VERO MAST , GEOSPATIAL SCIENTIST Primary Care Provider Active Start: June 16, 2024 End: June 16, 2024 Dr. Ralph Singh MD Attending Provider Active Start: June 16, 2024 End: June 16, 2024 Dr. Ralph Singh MD Referring Provider Active Start: June 16, 2024 End: June 16, 2024 Team Status: Inactive Member Role Status Dates VERO MAST , GEOSPATIAL SCIENTIST Primary Care Provider Active Start: July 24, 2024 End: July 24, 2024 Dr. Ralph Singh MD Attending Provider Active Start: July 24, 2024 End: July 24, 2024 Dr. Ralph Singh MD Referring Provider Active Start: July 24, 2024 End: July 24, 2024 Team Status: Inactive Member Role Status Dates VERO MAST , GEOSPATIAL SCIENTIST Primary Care Provider Active Start: July 28, 2024 End: July 28, 2024 VERO MAST , GEOSPATIAL SCIENTIST Referring Provider Active Sta rt: July 28, 2024 End: July 28, 2024 Dr. Ralph Singh MD Attending Provider Active Start: July 28, 2024 End: July 28, 2024 Team Status: Inactive Member Role Status Dates VERO MAST , GEOSPATIAL SCIENTIST Primary Care Provider Active Start: July 29, 2024 End: July 29, 2024 Dr. Brayan Cast DO Attending Provider Active Start: July 29, 2024 End: July 29, 2024 Dr. Brayan Cast DO Referring Provider Active Start: July 29, 2024 End: July 29, 2024 Team Status: Active Member Role Status Dates VERO MAST , GEOSPATIAL SCIENTIST Primary Care Provider Active Start: July 29, 2024 Dr. Brayan Cast DO Attending Provider Active Start: July 29, 2024 Dr. Brayan Cast DO Referring Provider Active Start: July 29, 2024 Dr. Brayan Cast DO Other Provider Active St art: July 29, 2024 Team Status: Inactive Member Role Status Dates VERO MAST , GEOSPATIAL SCIENTIST Primary Care Provider Active Start: September 04, 2024 End: September 04, 2024 VERO MAST , GEOSPATIAL SCIENTIST Referring Provider Active Sta rt: September 04, 2024 End: September 04, 2024 DAVID Granado Attending Provider Active Start: September 04, 2024 End: September 04, 2024 Team Status: Inactive Member Role Status Dates VERO MAST , GEOSPATIAL SCIENTIST Primary Care Provider Active Start: September 24, 2024 End: September 24, 2024 VERO MAST , GEOSPATIAL SCIENTIST Referring Provider Active Sta rt: September 24, 2024 End: September 24, 2024 CODY RebollarC Attending Provider Active Start: September 24, 2024 End: September 24, 2024 Team Status: Active Member Role Status Dates VERO MAST , GEOSPATIAL SCIENTIST Primary Care Provider Active Start: September 24, 2024 Dr. Scott Berrios MD Attending Provider Active Start: September 24, 2024 Dr. Scott Berrios MD Referring Provider Active Start: September 24, 2024 Team Status: Active Member Role Status Dates VERO MAST , GEOSPATIAL SCIENTIST Primary Care Provider Active Start: September 28, 2024 CODY GranadoC Attending Provider Active Start: September 28, 2024 DAVID Granado Referring Provider Active Start: September 28, 2024 Team Status: Inactive Member Role Status Dates VERO MAST , GEOSPATIAL SCIENTIST Primary Care Provider Active Start: September 30, 2024 End: September 30, 2024 Dr. Steven Mercado , Emergency Provider Active Start: September 30, 2024 End: September 30, 2024 Team Status: Inactive Member Role Status Dates VERO MAST , GEOSPATIAL SCIENTIST Primary Care Provider Active Start: September 28, 2024 End: September 28, 2024 Elsa José NP-Char Attending Provider Active Start: September 28, 2024 End: September 28, 2024 DAVID Granado Referring Provider Active Start: September 28, 2024 End: September 28, 2024 Team Status: Active Member Role Status Dates VERO MAST , GEOSPATIAL SCIENTIST Primary Care Provider Active Start: October 05, 2024 DAVID Granado Attending Provider Active Start: October 05, 2024 DAVID Granado Referring Provider Active Start: October 05, 2024 Team Status: Active Member Role Status Dates VERO MAST , GEOSPATIAL SCIENTIST Primary Care Provider Active Start: October 06, 2024 Elsa M Rufener , PRIMARY HEALTH CARE NURSE-C Attending Provider Active Start: October 06, 2024 Elsa José NP-C Referring Provider Active Start: October 06, 2024 Team Status: Inactive Member Role Status Dates DARLING KWAN Primary Care Provider Active Start: September 24, 2024 End: September 24, 2024 Dr. Scott Berrios MD Attending Provider Active Start: September 24, 2024 End: September 24, 2024 Dr. Scott Berrios MD Referring Provider Active Start: September 24, 2024 End: September 24, 2024 Team Status: Inactive Member Role Status Dates DARLING KWAN Primary Care Provider Active Start: September 30, 2024 End: September 30, 2024 Dr. Steven Mercado DO Attending Provider Active Start: September 30, 2024 End: September 30, 2024 Dr. Steven Mercado DO Emergency Provider Active Start: September 30, 2024 End: September 30, 2024 Team Status: Inactive Member Role Status Dates DARLING KWAN Primary Care Provider Active Start: October 05, 2024 End: October 05, 2024 Elsa José NP-C Attending Provider Active Start: October 05, 2024 End: October 05, 2024 Elsa José NP-C Referring Provider Active Start: October 05, 2024 End: October 05, 2024 Team Status: Active Member Role Status Dates BROCK KWANNP Primary Care Provider Active Start: October 14, 2024 Elsa José NP-C Referring Provider Active Start: October 14, 2024 Elsa José NP-Char Other Provider Active St art: October 14, 2024 Dr. Alberto Qiu DO Attending Provider Active S tart: October 14, 2024 Team Status: Inactive Member Role Status Dates DARLING KWAN Primary Care Provider Active Start: October 06, 2024 End: October 06, 2024 Elsa José NP-C Attending Provider Active Start: October 06, 2024 End: October 06, 2024 Elsa José NP-C Referring Provider Active Start: October 06, 2024 End: October 06, 2024 Team Status: Inactive Member Role Status Dates BROCK KWANNP Primary Care Provider Active Start: October 23, 2024 End: October 23, 2024 DAVID Granado Attending Provider Active Start: October 23, 2024 End: October 23, 2024 DAVID Granado Referring Provider Active Start: October 23, 2024 End: October 23, 2024 Team Status: Inactive Member Role Status Dates DARLING KWAN Primary Care Provider Active Start: October 30, 2024 End: October 30, 2024 DARLING KWAN Referring Provider Active Sta rt: October 30, 2024 End: October 30, 2024 DAVID Granado Attending Provider Active Start: October 30, 2024 End: October 30, 2024 Team Status: Inactive Member Role Status Dates DARLING KWAN Primary Care Provider Active Start: November 03, 2024 End: November 03, 2024 Dr. Velasquez [place] , DO Emergency Provider Active Start: November 03, 2024 End: November 03, 2024 Granite Chip Terrazzo Finisher Relationship Specialty Start Date End Date Papa Douglass MD [facility] [place] [address] PCP - General Family Medicine 04/27/10 Vero Ortez CNP [address] [place] [address] Referring Family Medicine 04/07/24 Coco Waters APRN.DRILL HAND [address] [place] [address] Auto Crane Driver Family Medicine 06/28/24 12/02/24 Feliciano Nunez APRN.DRILL HAND [facility] [place] [address] Auto Crane Driver Family Medicine 07/07/24 Granite Chip Terrazzo Finisher Relationship Specialty Start Date End Date Vero Ortez NP PCP - General Nurse Practitioner - Adult Health 04/16/24 Joseluis Riggins MB [facility] [address] [place], [place] [address] Oncologist Medical Oncology 04/16/24 Natalya Saavedra, ALFONZO Registered Nurse 04/16/24 Rylee Weaver, [facility] Re Recording Mixer Social Work 04/20/24 Bruna Frey COOK CANDY Re Recording Mixer 04/20/24 Jaziel Drake MD Clinical Field Specialist Nurse Practitioner - Family 05/07/24 Granite Chip Terrazzo Finisher Relationship Specialty Start Date End Date Vero Ortez NP PCP - General Nurse Practitioner - Adult Health 04/16/24 Joseluis Riggins MB [facility] [address] [place] [address] Oncologist Medical Oncology 04/16/24 Natalya Saavedra, ALFONZO Registered Nurse 04/16/24 Rylee Weaver, [facility] Re Recording Mixer Social Work 04/20/24FebBruna pulido COOK CANDY Re Recording Mixer 04/20/24 Jaziel Drake MD Clinical Field Specialist Nurse Practitioner - Family 05/07/24 Team Status: Inactive Member Role Status Dates DARLING KWAN Primary Care Provider Active Start: November 03, 2024 End: November 03, 2024 Dr. Velasquez [place] DO Attending Provider Active Start: November 03, 2024 End: November 03, 2024 Dr. Velasquez Hill DO Emergency Provider Active Start: November 03, 2024 End: November 03, 2024 Team Status: Inactive Member Role Status Dates DARLING KWAN Primary Care Provider Active Start: November 12, 2024 End: November 12, 2024 DAVID Granado Attending Provider Active Start: November 12, 2024 End: November 12, 2024 DAVID Granado Referring Provider Active Start: November 12, 2024 End: November 12, 2024 Team Status: Inactive Member Role Status Dates DARLING KWAN Primary Care Provider Active Start: December 30, 2024 End: December 30, 2024 DARLING KWAN Referring Provider Active Sta rt: December 30, 2024 End: December 30, 2024 Neal CUELLAR, PA Attending Provider Active Start: December 30, 2024 End: December 30, 2024 Granite Chip Terrazzo Finisher Relationship Specialty Start Date End Date Vero Ortez NP PCP - General Nurse Practitioner - Adult Health 04/16/24 Joseluis Riggins MB [facility] [address] [place] [address] Oncologist Medical Oncology 04/16/24 Natalya Saavedra, ALFONZO Registered Nurse 04/16/24 Rylee Weaver LSW Re Recording Mixer Social Work 04/20/24 Bruna Frey LISW Re Recording Mixer 04/20/24 Jaziel Drake MD Clinical Field Specialist Nurse Practitioner - Family 05/07/24 Goals (unrecognized section and content) Goals may be documented in a n alternate sectionGoals may be documented in an alternate sectionGoals may be documented in an alternate sectionGoals may be documented in an alternate sectionGoals may be documented in an alternate sectionGoals may be documented in an alternate sectionGoals may be documented in an alternate sectionGoals may be documented in an alternate sectionGoals may be documented in an alternate section No data available for this section No data available for this section No data available for this section No data available for this section No data available for this section No data available for this section No data available for this section No data available for this section No data available for this section No data available for this section No data available for this section No data available for this section No data available for this section No data available for this section No data available for this section No data available for this section No data available for this section No data available for this section No data available for this section No data available for this section No data available for this sectionGoals may be documented in an alternate section INFORMATION SOURCE (unrecogn ized section and content) DATE CREATED AUTHOR 03/22/2024 [facility] ([place]) DATE CREATED AUTHOR AUTHOR'S ORGANIZ ATION 06/17/2024 [facility] DATE CREATED AUTHOR AUTHOR'S ORGANIZ ATION 12/06/2024 [facility] DATE CREATED AUTHOR AUTHOR'S ORGANIZ ATION 12/20/2024 [facility] DATE CREATED AUTHOR AUTHOR'S ORGANIZ ATION 01/08/2025 [facility] DATE CREATED AUTHOR AUTHOR'S ORGANIZ ATION 01/10/2025 [facility] FOR RECORDS PERTAINING TO PATIENTS WHO ARE OR HAVE BEEN ENROLLED IN A CHEMICAL DEPENDENCY/SUBSTANCEABUSE PROGRAM, SOME INFORMATION MAY BE OMITTED. This clinical summary was aggregated from multiple sources. Caution should be exercised in using it in the provision of clinical care. This summary normalizes information from multiple sources, and as a consequence, information in this document may materially change the coding, format and clinical context of patient data. In addition, data may be omitted in some cases. CLINICAL DECISIONS SHOULD BE BASED ON THE PRIMARY CLINICAL RECORDS. [facility] DEPT. [facility]. provides no warranty or guarantee of the accuracy or completeness of information in this document.
[2025-01-10 22:48] LABS: Absolute Lymphocyte Count 3.24 X10^3/uL (0.83-4.51); Absolute Neutrophil Count 10.9 X10^3/uL (2.0-7.7); Basophil# 0.09 X10^3/uL; Basophil% 0.5 % (0-1); Eosinophil# 0.22 X10^3/uL; Eosinophils% 1.3 % (0-5); Hematocrit 40.4 % (37-47); Hemoglobin 12.9 g/dL (12.0-15.0); Lymphocyte # 3.24 X10^3/ul (0.83-4.51); Lymphocyte % 19.6 % (19-41); Mean Corp Hgb Conc 31.9 g/dL (32-36); Mean Corpuscular Hgb 25.6 pg (27.0-32.0); Mean Corpuscular Volume 80.2 fL (81-99); Mean Platelet Vol. 10.1 fl (6.2-12.0); Monocyte# 1.34 X10^3/uL; Monocyte% 8.1 % (0-10); NRBC Flagged by Analyzer 0 % (0-5); Neutrophil # 10.88 X10^3/uL (2.7-7.7); Neutrophil % 65.9 % (47-70); Platelet Count 236 K/mm3 (150-450); RBC Distribution Width CV 15.7 % (11.6-14.6); RBC Distribution Width SD 45.1 fl (35.1-43.9); Red Blood Count 5.04 M/mm3 (4.2-5.4); White Blood Count 16.5 K/mm3 (4.4-11.0)
[2025-01-10 23:13] LABS: Color, Urine Yellow (Yellow); Glucose, Dipstick 1000 mg/dl (Normal); Ketone-Dipstick Negative (Negative); Leukocyte Esterase-Dipstick 500 /ul (Negative); Nitrite-Dipstick Negative (Negative); Occult Blood-Urine 150 /ul (Negative); Protein-Dipstick 30 mg/dl (Negative); Specific Gravity, Urine 1.015 (1.002-1.030); Urine Bilirubin Dipstick Negative (Negative); Urine Clarity Cloudy (Clear); Urine Urobilinogen Normal (Normal)
[2025-01-10 23:31] LABS: Bacteria 4+ /hpf (None Seen); Red Blood Cells-Urine 0-5 SEEN /hpf (0-5); White Blood Cells 50-100 SEEN /hpf (0-5)
[2025-01-10 23:39] LABS: Anion Gap 11 (5-15); BUN 15 mg/dL (4-19); BUN/Creat Ratio 17.3 RATIO (10-20); Calcium,Total 9.4 mg/dL (7.6-11.0); Chloride 94 mmol/L (98-108); Creatinine, Serum 0.87 mg/dL (0.70-1.20); EST Glomerular Filtration Rate 78 (>60); Estimated Creatinine Clearance 81.25 ml/min (50-250); Glucose 486 mg/dL (70-99); Potassium 5.1 mmol/L (3.3-5.1); Sodium Level 130 mmol/L (133-145)
[2025-01-10] MEDS: Ceftriaxone 1 GM/50 ML BAG IV (23:43)
[2025-01-10] MEDS: Insulin Lispro 100 UNIT/ML VIAL (ADMELOG) 10 UNIT IV (23:55)
[2025-01-11] VITALS (18 sets, daily range): BP systolic 93–138; BP diastolic 54–75; PULSE 96–136; RESP 17–40; TEMP 36.6–37.8; O2SAT 95–100; BMI 46.4; BMI 46.3
--- NOTE | 2025-01-11 00:21 | PCM.HP.STD ---
[facility] Date of Admission: 01/11/25 Date of Service: 01/11/25 Chief Complaint: Lower Abdominal Pain and Urinary Frequency with Hyperglycemia. [facility] Matthew TYLER, is a 59 F with a past medical history of hyperlipidemia; on fenofibrate, hypothyroidism; on levothyroxine, morbid obesity; BMI 46.2 this admission, KODI; on CPAP, chronic hypoxia on ~2-3L NC, former tobacco abuse, history of cannabis abuse, history of asthma; on as needed albuterol, DM-2; of unknown control on dulaglutide and sliding scale insulin 3 times daily, diabetic neuropathy; on gabapentin 3 times daily, history of EtOH abuse (quit ~2001); with subsequent cirrhosis, history of cocaine and methamphetamine abuse (quit ~5 years ago), history of primary malignant neuroendocrine tumor of the stomach; s/p excision (2023), history of urolithiasis, history of laparoscopic cholecystectomy, CELSA; on ferrous sulfate, depression with anxiety; on fluoxetine, GERD; on pantoprazole twice daily and sucralfate AC, OA; with chronic back pain on as needed oxycodone-acetaminophen every 6 hours as needed and recently diagnosed COVID-19 treated with glucocorticoids who presents to [facility] ER complaining of dysuria and lower abdominal pain with hyperglycemia. Ms. Tyler reports her symptoms began approximately 1 day prior to admission with a gradual-onset of lower abdominal pain with urinary frequency, hesitancy and urgency with discolored urine. She also admits to constipation. She denies associated fever, chills, back pain, dysuria, hematuria, nausea, vomiting, diarrhea, chest pain, shortness of breath, headache or rash. In the ER she was noted to have UA positive for evidence of Acute Cystitis; without hematuria with corresponding Leukocytosis of 16.5 K with Left-shift of 4.6% (but without other clinical signs of sepsis) complicated by severe Hyperglycemia of 486 mg/dL suspected to be due to Adverse Drug Reaction to recent steroid administration for treatment of COVID-[address] scan of abdomen pelvis suggestive of fecal stasis with a component of constipation and she was then admitted to the general medical floor for ongoing care for stay that is expected to extend beyond 2 midnights. COUNTS INCLUDE 234 BEDS AT THE [facility] Medical History Anxiety Loose, teeth Post-menopausal Insulin dependent diabetes mellitus History of renal disease Uses wheelchair Substance abuse Marijuana use Alcohol use Cirrhosis Fatty liver High cholesterol Chronic headaches Syncope Neuroendocrine carcinoma Dietary restriction History of GI bleed Former smoker CPAP (continuous positive airway pressure) dependence Asthma On home oxygen therapy Shortness of breath on exertion History of edema History of echocardiogram Hypertension Primary malignant neuroendocrine tumor of stomach Left carpal tunnel syndrome Right carpal tunnel syndrome Right wrist pain History of alcoholism Fatigue Hyperkalemia Noncompliance with medication regimen Depression Back pain Bloody stool Thyroid disease Anemia Arthritis Morbid obesity Hyperlipidemia Hypothyroidism Home Medications ?Medication ?Instructions ?Recorded ?Last Taken ?Type blood-glucose sensor (Dexcom G7 #3 ea 02/18/23 Unknown Rx Sensor device) blood-glucose,instructional design technologist,cont #1 ea 02/18/23 Unknown Rx (Dexcom G7 Certified [employer] Administrator) acetaminophen 500 mg tablet 500 - 1,000 mg PO Q6H PRN fever or 04/18/23 03/03/24 History pain blood sugar diagnostic (OneTouch #100 ea 09/23/23 Unknown Rx Verio test strips) levothyroxine 200 mcg tablet 200 mcg PO DAILY hypothyroidism 09/23/23 03/03/24 Rx #90 tabs fluoxetine 40 mg capsule 40 mg PO DAILY depression 03/11/24 Unknown History insulin regular hum U-500 conc 500 100 unit (0.2 mL) subcut TID DM 03/12/24 Unknown Rx unit/mL(3 mL) subcut pen (Humulin #18 mL R U-500 (Conc) Insulin Kwikpen) pantoprazole 40 mg tablet,delayed 40 mg PO BID gerd 30 days #60 tabs 04/07/24 Unknown Rx release sucralfate 1 gram tablet 1 g PO 1HR_ACHS gerd 14 days #42 04/07/24 Unknown Rx tabs fenofibrate nanocrystallized 48 mg 48 mg PO QHS 1 month #30 tabs 05/09/24 Unknown Rx tablet dulaglutide 4.5 mg/0.5 mL 4.5 mg subcut NARVAEZ diabetes 07/28/24 07/05/24 History subcutaneous pen injector (Trulicity) lancets 30 gauge (Easy Touch #100 ea 09/24/24 Unknown Rx Lancets) cholecalciferol (vitamin D3) 1,250 1,250 mcg PO QWEEK supplement 09/30/24 Unknown History mcg (50,000 unit) capsule ferrous sulfate 325 mg (65 mg 325 mg PO QODAY iron 09/30/24 Unknown History iron) tablet gabapentin 300 mg capsule 300 mg PO TID pain 30 days #90 caps 09/30/24 Unknown Rx oxycodone-acetaminophen 5 mg-325 1 tab PO Q6H PRN pain 3 days #12 09/30/24 Unknown Rx mg tablet (Percocet) tabs albuterol sulfate 90 mcg/actuation 2 inh inhalation Q4-6H PRN 10/30/24 Unknown Rx aerosol inhaler shortness of breath or wheezing #8.5 grams fluticasone 500 mcg-salmeterol 50 1 inh inhalation Q12H astham #60 ea 10/30/24 Unknown Rx mcg/dose blistr powdr for inhalation (Advair Diskus) benzonatate 200 mg capsule 200 mg PO TID PRN cough #20 caps 12/30/24 Unknown Rx Allergy/AdvReac Type Severity Reaction Status Date / Time codeine Allergy Angioedema Verified 01/10/25 22:14 nitrofurantoin Allergy edema Verified 01/10/25 22:14 Penicillins Allergy Rash Verified 01/10/25 22:14 Sulfa (Sulfonamide Allergy Rash Verified 01/10/25 22:14 Antibiotics) sulfamethoxazole (Bactrim) Allergy Unknown Verified 01/10/25 22:14 trimethoprim (Bactrim) Allergy Unknown Verified 01/10/25 22:14 Family History Father Cancer Mother Diabetes Grandfather Heart disease Grandmother CVA (cerebral vascular accident) Surgical History Hx of dilation and curettage Hx laparoscopic cholecystectomy Hx of colonoscopy History of esophagogastroduodenoscopy (EGD) Social History household members: none housing: apartment pets and animals: No Smoking Status: Former smoker Tobacco: How many years used: 2 alcohol intake: former details: Quit 2000 substance use type: does not use caffeine: Yes Type: tea ROS ROS Narrative Review of Systems: Constitutional: Patient denies fever or chills. Eyes: Patient denies change in vision or discharge from eyes. ENT: Patient denies runny nose, sore throat or ear pain. Resp: Patient denies shortness of breath or cough. CV: Patient denies chest pain, palpitations, heart racing or lower extremity edema. GI: Patient admits to constipation but she denies nausea, vomiting or diarrhea. : Patient admits to urinary frequency, hesitancy and discoloration of urine as per HPI. MSK: Patient denies arthralgias or myalgias. Skin: Patient denies rash, abscess, wounds or jaundice. Psych: Patient denies symptoms of uncontrolled depression or anxiety. Neuro: Patient denies headache, paresthesias or focal neurologic deficits. Allergy: Patient denies lip swelling, tongue swelling or urticaria. Hematology: Patient denies easy bleeding or easy bruisability. Endocrinology: Patient admits to polyuria and polydipsia with persistent hyperglycemia after recent steroid administration as per HPI. 14 point ROS otherwise negative save for positives noted above in HPI. Vital Signs Vital Signs Vital Signs: 01/10/25 22:13 01/10/25 22:43 01/10/25 22:45 Temperature 98.8 F Temperature Source Oral Pulse Rate 124 H 109 H 103 H Respiratory Rate 20 H 16 20 H Blood Pressure 167/77 H 131/68 H 131/68 H Blood Pressure Mean 107 89 89 Pulse Ox 95 99 96 Oxygen Delivery Method Nasal Cannula Room Air Room Air Oxygen Flow Rate (L/min) 3 Weight Weight: 244 lb 6.4 oz Body Mass Index (BMI) 46.1 Physical Exam Const alert, oriented x3 and no apparent distress Constitutional Narrative: Morbidly obese. General Appearance: cooperative HEENT normocephalic, head/scalp atraumatic, hearing grossly normal bilaterally and moist oral mucous membranes Eyes PERRL and EOMs intact bilaterally Neck no lymphadenopathy, supple and no JVD Resp normal respiratory effort, no retractions, no use of accessory muscles and clear to auscultation bilaterally Cardio regular rate and regular rhythm GI normal to inspection, nondistended, normoactive bowel sounds, soft to palpation, non-tender and non-distended GI Narrative: Morbidly obese. Extremity normal to inspection, full ROM and no clubbing, cyanosis or edema Skin Skin Narrative: Patient has no evidence of rash, abscess, wounds or jaundice. Neuro oriented x3, CN's II-XII intact bilaterally, moves all extremities and no focal motor deficits Sensorium / Orientation: awake, alert, oriented to person, oriented to place and oriented to time Speech: speech normal Psych affect normal Results Medical Records Data Attestation: I reviewed the patient's medical records Lab / Micro Data Attestation: I reviewed the patient's lab results. 01/10/25 22:37 01/10/25 22:37 Labs: Laboratory Results - last 24 hr 01/10/25 22:30: Urine Color Yellow, Urine Clarity Cloudy, Urine pH 6.0, Ur Specific [place] 1.015, Urine Protein 30 H, Urine Glucose (UA) 1000 H, Urine Ketones Negative, Urine Occult Blood 150 H, Urine Nitrite Negative, Urine Bilirubin Negative, Urine Urobilinogen Normal, Ur Leukocyte Esterase 500 H, Urine RBC 0-5 SEEN, Urine WBC 50-100 SEEN, Ur Squamous Epith Cells 0 SEEN, Urine Bacteria 4+, Urine Mucus 0 SEEN 01/10/25 22:37: WBC 16.5 H, RBC 5.04, Hgb 12.9, Hct 40.4, MCV 80.2 L, MCH 25.6 L, MCHC 31.9 L, RDW Std Deviation 45.1 H, RDW Coeff of [place] 15.7 H, Plt Count 236, MPV 10.1, Immature Gran % (Auto) 4.600 H, Neut % (Auto) 65.9, Lymph % (Auto) 19.6, [place] % (Auto) 8.1, Eos % (Auto) 1.3, Baso % (Auto) 0.5, Absolute Neuts (auto) 10.9 H, Absolute Lymphs (auto) 3.24, Nucleated RBC % 0, Sodium 130 L, Potassium 5.1, Chloride 94 L, Carbon Dioxide 25.0, Anion Gap 11, BUN 15, Creatinine 0.87, Estim Creat Clear Calc 81.25, Est GFR (MDRD) Non-Af 78, BUN/Creatinine Ratio 17.3, Glucose 486 H*, Lactic Acid 2.0, Calcium 9.4 Imaging Radiology Impression Abdomen/Pelvis CT 01/10/25 22:21 IMPRESSION: No acute intra-abdominal process. Hepatosplenomegaly. Status post cholecystectomy. Fecal stasis, a component of constipation. Reading [facility] Assessment & Plan Assessment/Plan (1) Acute cystitis without hematuria: (2) Leukocytosis: QUALIFIERS: Leukocytosis type: bandemia Qualified Code(s): D72.825 - Bandemia (3) Hyperglycemia due to type 2 diabetes mellitus: QUALIFIERS: Diabetes mellitus control officer insulin use: with control officer use Qualified Code(s): E11.65 - Type 2 diabetes mellitus with hyperglycemia; Z79.4 - insurance claim representative (current) use of insulin (4) Adverse drug reaction: QUALIFIERS: Encounter type: initial encounter Qualified Code(s): T50.905A - Adverse effect of unspecified drugs, medicaments and biological substances, initial encounter (5) Constipation: QUALIFIERS: Constipation type: unspecified constipation type Qualified Code(s): K59.00 - Constipation, unspecified (6) History of COVID-19: (7) Morbid obesity with BMI of 45.0-49.9, adult: PLAN: Plan 1. UA positive for evidence of Acute Cystitis; without hematuria with corresponding Leukocytosis of 16.5 K with Left-shift of 4.6% (but without other clinical signs of sepsis) - Admit to general medical floor. Continue with empiric IV ceftriaxone begun in the ER and await culture and sensitivity data. Give acetaminophen prn for [id number] (level 1-5/10) pain or fever. Give oxycodone-acetaminophen as needed for severe (level 6-10) pain. Give ondansetron IV prn for nausea and vomiting. 2. Severe Hyperglycemia of 486 mg/dL suspected to be due to Adverse Drug Reaction to recent steroid administration for treatment of COVID-19 complicating #1 - Hold further steroids to avoid worsening hyperglycemia. Give insulin glargine 30 units sq once plus SSI. 3. CT scan of abdomen pelvis suggestive of fecal stasis with a component of constipation compounding #1 & #2 - Give lactulose x 1 plus Sara-Lax daily. 4. Recently diagnosed COVID-19 treated with glucocorticoids adding to the medical complexity of #1 - #3 - Noted. 5. Morbid (Class III) obesity; BMI 46.2 this admission plus KODI; on CPAP adding to the burden of disease outlined from #1 - #4 - Weight loss will be recommended. Resume nocturnal CPAP. Check TSH. This complicates her case and may hamper recovery. 6. DM-2; of unknown control on dulaglutide and sliding scale insulin 3 times daily plus diabetic neuropathy; on gabapentin 3 times daily - ADA diet. We will give insulin glargine 30 U once. Check FSBS q. AC/HS plus SSI. Check HgbA1c. 7. Chronic hypoxia on ~2-3L NC - Maintain current supplemental oxygen levels. 8. History of primary malignant neuroendocrine tumor of the stomach; s/p excision (2023) with GERD - Continue PPI and sucralfate as previous. 9. History of EtOH abuse (quit ~2001); with subsequent cirrhosis - Noted. 10. Hyperlipidemia; on fenofibrate - Stable. 11. Hypothyroidism; on levothyroxine - Resume levothyroxine and check TSH. 12. Former tobacco abuse - Noted. 13. History of cannabis abuse - Noted. 14. History of asthma; on as needed albuterol - Stable with no evidence of acute flare at this time. 15. History of cocaine and methamphetamine abuse (quit ~5 years ago) - Noted. 16. History of urolithiasis - Noted. 17. History of laparoscopic cholecystectomy - Noted. 18. CELSA; on ferrous sulfate - Stable with hemoglobin of hemoglobin of 12.9 g deciliter and mildly low MCV of 80.2 fL present on admission. Check iron studies and Hemoccult stools. 19. Depression with anxiety; on fluoxetine - Maintain present treatment. 20. OA; with chronic back pain on as needed oxycodone-acetaminophen every 6 hours as needed - Continue oxycodone-acetaminophen as needed for severe (level 6-10/10) pain as outlined in #1. 21. DVT prophylaxis - Enoxaparin 40 mg SQ twice daily plus SCDs. Total time: Approximately (but not less than) 75 minutes. Charges/Coding Visit Charges Inpatient E&M: 70140 Init Hosp L3
--- OUTSIDE RECORDS SUMMARY | 2025-01-11 00:44 | XMS RPT_ITS | CCD ---
Author Organization [facility] Care Team Providers Care Industrial Property Appraiser Name Role Phone Papa Douglass MD Primary Care Provider [facility], Keti Unavailable [facility], Jessica Unavailable Dr. Papa Douglass Primary Care Provider Dr. Candy Archuleta Emergency Provider [phone] Dr. Ir[address] S[address] Provider Dr. Irwin Sorenson Other Provider Debbie, Dr. Augusta Ferreira Attending Provider Debbie, Dr. Augusta Ferreira Other Provider Papa Douglass MD Primary Care Provider [facility], Keti Unavailable [facility], Jessica Unavailable Papa Douglass MD Primary Care Provider [facility], Keti Unavailable [facility], Jessica Unavailable Dr. Papa Douglass Primary Care Provider Dr. Candy Archuleta Emergency Provider Dr. Irwin Sorenson Admit Provider Dr. Irwin Sorenson Other Provider Debbie, Dr. Augusta Ferreira Attending Provider Debbie, Dr. Augusta Ferreira Other Provider Papa Douglass MD Primary Care Provider [facility], Keti Unavailable [facility], Jessica Unavailable Dr. Papa Douglass Primary Care Provider Dr. Papa Douglass Referring Provider Vidal TRIMMER HAND-C Jaziel Attending Provider Dr. Candy Archuleta Emergency Provider Dr. Cecilia Villa Admit Provider Dr. Cecilia Villa Attending Provider Dr. Cecilia Villa Other Provider Dr. Nathalie Kelsey Attending Provider Dr. Sergo Bustillos Attending Provider Dr. Sergo Bustillos Other Provider MAST FLIGHT RADIO OFFICER-SALES ACCOUNT MANAGER, VERO Primary Care Physician Papa Douglass MD Primary Care Provider MAST FLIGHT RADIO OFFICER-SALES ACCOUNT MANAGER, VERO Attending Unavailabl e MAST FLIGHT RADIO OFFICER-SALES ACCOUNT MANAGER, VERO Primary Care Unavailabl e VIDAL ROSSC, JAZIEL Attending Unavailable MAST FLIGHT RADIO OFFICER-SALES ACCOUNT MANAGER, VERO Primary Care Unavailabl e [place] FLIGHT RADIO OFFICER-SALES ACCOUNT MANAGER, KURT Attending Unava ilable MAST FLIGHT RADIO OFFICER-SALES ACCOUNT MANAGER, VERO Primary Care Unavailabl e [place] FLIGHT RADIO OFFICER-SALES ACCOUNT MANAGER, KURT Attending Unava ilable MAST FLIGHT RADIO OFFICER-SALES ACCOUNT MANAGER, VERO Primary Care Unavailabl e MAST FLIGHT RADIO OFFICER-SALES ACCOUNT MANAGER, VERO Attending Unavailabl e MAST FLIGHT RADIO OFFICER-SALES ACCOUNT MANAGER, VERO Primary Care Unavailabl e MAST FLIGHT RADIO OFFICER-SALES ACCOUNT MANAGER, VERO Attending Unavailabl e MAST FLIGHT RADIO OFFICER-SALES ACCOUNT MANAGER, VERO Primary Care Unavailabl e MAST FLIGHT RADIO OFFICER-SALES ACCOUNT MANAGER, VERO Attending Unavailabl e MAST FLIGHT RADIO OFFICER-SALES ACCOUNT MANAGER, VERO Primary Care Unavailabl e [place] FLIGHT RADIO OFFICER-SALES ACCOUNT MANAGER, KURT Attending Unava ilable MAST FLIGHT RADIO OFFICER-SALES ACCOUNT MANAGER, VERO Primary Care Unavailabl e TAMNAY BRODERICK, DR URSULA Vital Attending Unavailabl e MAST FLIGHT RADIO OFFICER-SALES ACCOUNT MANAGER, VREO Primary Care Unavailabl e DR CINDY ROGERS DO Attending Unavailable MAST FLIGHT RADIO OFFICER-SALES ACCOUNT MANAGER, VERO Primary Care Unavailabl e MAST FLIGHT RADIO OFFICER-SALES ACCOUNT MANAGER, VERO Attending Unavailabl e MAST FLIGHT RADIO OFFICER-SALES ACCOUNT MANAGER, VERO Primary Care Unavailabl e MAST FLIGHT RADIO OFFICER-SALES ACCOUNT MANAGER, VERO Attending Unavailabl e MAST FLIGHT RADIO OFFICER-SALES ACCOUNT MANAGER, VERO Primary Care Unavailabl e MAST FLIGHT RADIO OFFICER-SALES ACCOUNT MANAGER, VERO Attending Unavailabl e MAST FLIGHT RADIO OFFICER-SALES ACCOUNT MANAGER, VERO Primary Care Unavailabl e MAST FLIGHT RADIO OFFICER-SALES ACCOUNT MANAGER, VERO Attending Unavailabl e MAST FLIGHT RADIO OFFICER-SALES ACCOUNT MANAGER, VERO Primary Care Unavailabl e [facility], Keti Unavailable [facility], Jessica Unavailable Mast TRIMMER HAND, Vero Primary Care Provider Unavailabl e Iscmichelleus [facility], Joseluis S Unavailable Quentin RN, Natalya Unavailable Unavailable Owen DINEROW, Rylee Unavailable Unavailable Tk LACKEY, Crystal Unavailable Unavail able Jaziel Drake MD Unavailable Sesar MEJÍA, Mari Unavailable Unavailable [place] FLIGHT RADIO OFFICER-SALES ACCOUNT MANAGER, KURT Attending Unava ilable MAST FLIGHT RADIO OFFICER-SALES ACCOUNT MANAGER, VERO Primary Care Unavailabl e MAST FLIGHT RADIO OFFICER-SALES ACCOUNT MANAGER, VERO Primary Care Unavailabl e OZ BRODERICK, AMADOU Givens Attending Unavailable MAST FLIGHT RADIO OFFICER-SALES ACCOUNT MANAGER, VERO Primary Care Unavailabl e [place]OOK[place] FLIGHT RADIO OFFICER-SALES ACCOUNT MANAGER, CORTNY Attending Unava ilable Jame RN, Gia Unavailable Unavailable Jame RN, Gia Unavailable Unavailable Mast SALES ACCOUNT MANAGER, Vero Unavailable Tannhof FLIGHT RADIO OFFICER.SALES ACCOUNT MANAGER, Coco Unavailable Enrique FLIGHT RADIO OFFICER.SALES ACCOUNT MANAGER, Feliciano Unavailable MAST TANK ASSEMBLER, VERO Primary Care Provider Dr. Ralph Singh MD Attending Provider Dr. Ralph Singh MD Referring Provider MAST TANK ASSEMBLER, VERO Referring Provider Vidal SAMUELS-CJaziel Attending Provider Dr. Brayan Cast DO Attending Provider Dr. Brayan Cast DO Referring Provider Dr. Brayan Cast DO Other Provider Arnav TRIMMER HAND-CElsa Attending Provider Agustina BRODERICK, Dr. Ritchie Attending Provider Agustina BRODERICK, Dr. Ritchie Referring Provider [phone] Arnav TRIMMER HAND-ClEsa Referring Provider Dr. Steven Mercado DO Emergency Provider MAST TANK ASSEMBLER, VERO Primary Care Provider [phone] Francisco BRODERICK, Dr. Rosas Attending Provider Francisco BRODERICK, Dr. Rosas Referring Provider MAST TANK ASSEMBLER, VERO Referring Provider Vidal TRIMMER HAND-CJaziel Attending Provider [phone] MAST TANK ASSEMBLER, VERO Primary Care Provider [phone] Francisco BRODERICK, Dr. Rosas Attending Provider Francisco BRODERICK, Dr. Rosas Referring Provider Dr. Steven Mercado DO Attending Provider Arnav TRIMMER HAND-C, Elsa Butler Other Provider Dr. Alberto Qiu DO Attending Provider Dr. Velasquez Hill DO Emergency Provider MAST FLIGHT RADIO OFFICER-SALES ACCOUNT MANAGER, VERO Attending Unavailabl e MAST FLIGHT RADIO OFFICER-SALES ACCOUNT MANAGER, VERO Primary Care Unavailabl e MAST FLIGHT RADIO OFFICER-SALES ACCOUNT MANAGER, VERO Attending Unavailabl e MAST FLIGHT RADIO OFFICER-SALES ACCOUNT MANAGER, VERO Primary Care Unavailabl e MAST FLIGHT RADIO OFFICER-SALES ACCOUNT MANAGER, VERO Attending Unavailabl e MAST FLIGHT RADIO OFFICER-SALES ACCOUNT MANAGER, VERO Primary Care Unavailabl e MAST FLIGHT RADIO OFFICER-SALES ACCOUNT MANAGER, VERO Primary Care Unavailabl e MAST FLIGHT RADIO OFFICER-SALES ACCOUNT MANAGER, VERO Attending Unavailabl e BROOKOVER FLIGHT RADIO OFFICER-SALES ACCOUNT MANAGER, KURT Attending Unava ilable MAST FLIGHT RADIO OFFICER-SALES ACCOUNT MANAGER, VERO Primary Care Unavailabl e BROOK[place] FLIGHT RADIO OFFICER-SALES ACCOUNT MANAGER, KURT Attending Unava ilable MAST FLIGHT RADIO OFFICER-SALES ACCOUNT MANAGER, VERO Primary Care Unavailabl e MAST FLIGHT RADIO OFFICER-SALES ACCOUNT MANAGER, VERO Attending Unavailabl e MAST FLIGHT RADIO OFFICER-SALES ACCOUNT MANAGER, VERO Primary Care Unavailabl e MAST FLIGHT RADIO OFFICER-SALES ACCOUNT MANAGER, VERO Attending Unavailabl e MAST FLIGHT RADIO OFFICER-SALES ACCOUNT MANAGER, VERO Primary Care Unavailabl e MAST FLIGHT RADIO OFFICER-SALES ACCOUNT MANAGER, VERO Attending Unavailabl e MAST FLIGHT RADIO OFFICER-SALES ACCOUNT MANAGER, VERO Primary Care Unavailabl e MAST FLIGHT RADIO OFFICER-SALES ACCOUNT MANAGER, VERO Primary Care Unavailabl e ALDA ABBASI MD Attending Unavail able MAST FLIGHT RADIO OFFICER-SALES ACCOUNT MANAGER, VERO Attending Unavailabl e MAST FLIGHT RADIO OFFICER-SALES ACCOUNT MANAGER, VERO Primary Care Unavailabl e Tannhof FLIGHT RADIO OFFICER.SALES ACCOUNT MANAGER, Coco Unavailable Mast TRIMMER HAND, Vero Primary Care Provider Unavailabl e Gilson PETERSEN [facility], Mansour S Unavailable Jaziel Drake MD Unavailable Unavailable MAST TANK ASSEMBLER, VERO Primary Care Provider MAST TANK ASSEMBLER, VERO Referring Provider Dr. Velasquez Hill DO Attending Provider Neal Florian Attending Provider MAST, VERO Referring Unavailable MAST, VERO Primary [...] Unavailable MAST, VERO Primary Care Unavailable THOMAS MNOTERO Referring Unavailable AGUSTINA, SCOTT Referring Unavailable AGUSTINA, [...] Unavailable MAST, VERO Primary Care Unavailable THOMAS MONTEOR Referring Unavailable MAST, VERO Primary Care Unavailable [...] VERO Referring Unavailable Ralph Singh Attending Unavailable MAST, VERO Referring Unavailable Elsa [...] Allergy 08-01-19 13 Swelling, Swelling (morphologic abnormality) [facility] Work Phone: (20 sources) Nitrofurantoin Drug Allergy 06-14-20 21 Swelling [facility] Work Phone: (8 sources) Penicillins Drug Allergy 04-27-20 10 Rash [facility] (20 sources) Sulfamethoxazole / Trimethoprim; Translations: [sulfamethoxazole-t rimethoprim] Drug Allergy 09-08-19 16 Rash, Blister (morphologic abnormality), Blisters [facility] (17 sources) Penicillins Drug Allergy 04-27-20 10 Rash [facility] (20 sources) Sulfamethoxazole Drug Allergy 02-10-20 22 Unknown [facility] (20 sources) Sulfonamides (Antibiotic); Translations: [Sulfa (Sulfonamide Antibiotics)] Allergy to substance 02-10-20 22 Rash, Unknown [facility] (20 sources) Trimethoprim Drug Allergy 02-10-20 22 Unknown [facility] (18 sources) Penicillins Allergy to substance 06-08-20 22 Rash [facility] (20 sources) Penicillin; Translations: [penicillin] Drug Allergy Eruption of skin (disorder) [facility] (17 sources) Sulfonamide; Translations: [sulfa drugs] Drug allergy [facility] (19 sources) Penicillins Propensity to adverse reactions to drug 05-07-20 24 [facility] (1 source) Codeine Drug Allergy 12-31-19 25 [facility] (1 source) Nitrofurantoin Drug Allergy 12-31-19 25 [facility] (1 source) Penicillins Drug allergy (disorder) 12-31-19 25 [facility] (1 source) Sulfamethoxazole Drug Allergy 12-31-19 25 [facility] (1 source) Trimethoprim Drug Allergy 12-31-19 25 [facility] Medications Current Medications Medication Drug [...] q24h, # 30 EA, 0 Refill(s), Pharmacy: [facility]/pharmacy #[id number], 159, cm, 10/02/24 9:38:00 EDT, Height, [...] - Uncontrolled E11.65 Blood-Glucose Meter,Continuous (Dexcom G7 Framing And Hanging) misc (8 sources) Start: 02-18-2023 Blood-Glucose Meter,Continuous (Dexcom G7 Framing And Hanging) misc Active 0 .Route 1 February 18, 2023 12:00am As directed Blood-Glucose Sensor (Dexcom G7 Sensor) device (9 sources) Start: 02-18-2023 Blood-Glucose Sensor (Dexcom G7 Sensor) device Active 0 .Route 3 February 18, 2023 12:00am 1 sensor q 10 days Blood-Glucose,Framing And Hanging, Cont (Dexcom G7 Framing And Hanging) misc (1 source) Start: 02-18-2023 Blood-Glucose,Framing And Hanging ,Cont (Dexcom G7 Framing And Hanging) misc Active 0 .Route 1 February 18, [...] Comment on above: Take 1 capsule by [facility] four times daily for 7 days. cetirizine hydrochloride 10 mg oral tablet (3 sources) Histamine-1 Receptor Antagonist Start: 06-26-20 End: 07-10-20 take 1 tablet by mouth once daily cetirizine (ZYRTEC) 10 mg tablet Take 1 tablet by mouth once daily for 14 days. 14 tablet 0 06/26/2022 07/10/2022 Active Comment on above: Take 1 tablet by [facility] once daily for 14 days. cholecalciferol 1.25 mg oral capsule (20 sources) Vitamin D Start: 10-01-19 take 1 capsule by mouth every week Cholecalciferol (Vitamin D3) 1,250 mcg (50,000 unit) capsule Active 1250 ug PO EVERY WEEK September 30, 2024 12:00am Start: 07-03-2021 take 1 capsule by [facility] every week cholecalciferol, Vitamin D3, (VITAMIN D3) 1,250 mcg (50,000 unit) cap capsule Indications: Vitamin D deficiency Take 1 capsule by mouth one time a week. 12 capsule 3 07/03/2021 Active Comment on above: Take 1 capsule by [facility] one time a week. ciclopirox 80 mg/ml [...] 12:00am March 04, 2024 10:33am DEXCOM G7 COAGULATING OPERATOR misc (12 sources) Start: 02-18-2023 DEXCOM G7 [...] QHS, # 1 EA, 0 Refill(s), Pharmacy: [facility] #30, Carpal tunnel syndrome of right wrist [...] QHS, # 1 EA, 0 Refill(s), Pharmacy: [facility] #30, Carpal tunnel syndrome of right wrist [...] on above: Take 1 capsule by mo [facility] once daily. Fluticasone Propion-Salmeterol (2 sources) Corticosteroid, [...] complication, with long-term current use of insulin ([facility]) Inject 48 Units subcutaneously twice daily [...] complication, with long-term current use of insulin ([facility]) Inject 110 Units subcutaneously every morning. [...] qDay, # 30 tab(s), 11 Refill(s), Pharmacy: [facility]/pharmacy #[id number], 154, cm, 03/02/24 7:12:00 EDT, Height, [...] 0 Refill(s), 9/11/24 8:10:00 AM EDT, Pharmacy: [facility]/pharmacy #[id number], Carpal tunnel syndrome of right wrist [...] 0 Refill(s), 12/09/24 2:14:00 PM EDT, Pharmacy: [facility]/pharmacy #[id number], 150, cm, 12/02/24 13:05:00 EDT, Height, [...] 0 Refill(s), 03/27/24 10:27:00 AM EDT, Pharmacy: [facility] #30, Enterococcus UTI, 155, cm, 03/17/24 7:21:00 EDT, Height, 109.3, kg, 03/17/24 7:21:00 EDT, Dosing Weight Start Date: 03/20/24 Stop Date: 03/27/24 Status: Ordered Start: 02-28-2024 End: 03-06-2024 Macrobid 100 mg oral capsule Dose : 100 mg = 1 cap(s), Oral, BID, Take with food, X 7 day(s), # 14 cap(s), 0 Refill(s), 03/06/24 11:04:00 AM EDT, Pharmacy: [facility]/pharmacy #[id number], 152, cm, 02/24/24 9:43:00 EDT, Height, 108.5, kg, 02/25/24 9:12:00 EDT, Dosing Weight Start Date: 02/28/24 Stop Date: 03/06/24 Status: Ordered Start: 01-14-2024 End: 01-19-2024 Macrobid 100 mg oral capsule Dose : 100 mg = 1 cap(s), Oral, BID, Take with food, X 5 day(s), # 10 cap(s), 0 Refill(s), 01/19/24 9:25:00 AM EDT, Pharmacy: [facility]/pharmacy #[id number], 153, cm, 01/14/24 7:37:00 EDT, Height, 112.3, kg, 01/14/24 7:37:00 EDT, Dosing Weight Start Date: 01/14/24 Stop Date: 01/19/24 Status: Ordered Oxygen (11 sources) oxygen gas Inhal e 2 L As directed. Please provide: small portable tanks This order certifies that this patient is under my care and that I, or a Nurse Practitioner or Physician's Program Support Specialist had a [id number] Encounter with them. Based upon those findings, [...] 1/2 hr before meal. polyethylene glycol 3350 [id number] mg / potassium chloride 2970 mg / sodium bicarbonate 6740 mg / sodium chloride 5860 mg / sodium sulfate 65437 mg powder for oral solution (5 sources) [...] QID, # 20 cap(s), 0 Refill(s), Pharmacy: [facility]/pharmacy #[id number], 152, cm, 02/24/24 9:43:00 EDT, Height, [...] Ergocalciferol (Vitamin D2) 50,000 UNIT capsule Discontinued 58992 U PO Q7D September 12, 2017 1:00am [...] 60 mg/ml injection (2 sources) Plasma Volume Swat Team Member Start: 09-03-2024 End: 09-03-2024 NEEDED, Starting on [...] TEST BLOOD SUGARS 3 TIMES DAILY levonorgestrel 0.267952 mg/hr intrauterine system (20 sources) Progestin, Progestin-containing [...] twice daily for 5 days PO nystatin 372639 unt/ml oral suspension (20 sources) Polyene Antifungal Start: 03-07-2024 End: 04-04-2024 take [id number] [IU] by mouth four times daily Nystatin 100,000 unit/mL Suspension Discontinued [id number] U PO 4 TIMES DAILY 140 March [...] Onset: 01-14-2024 Episodic Other aftercare (2 sources) [facility] (current) use of insulin; Translations: [terminal computer operator (current) use of insulin] Onset: 03-07-2024 Episodic [...] 0 12-30-2024 Urgent Care Visit Report Normal [facility] CT ABDOMEN/PELVIS WITH AND W ITHOUT [...] error, please notify the sender immediately at [phone] and permanently delete the original report and destroy any copies or printouts. Normal [facility] CBC AND ELECTRONIC DIFFon Basophils (Bld) [#/Vol] 0.07 10*3/uL 0.00 - 0.15 K/uL [facility] Basophils/100 WBC (Bld) 0.8 % [facility] Differential cell count method Nom (Bld) Electronic Differential [facility] Eosinophils (Bld) [#/Vol] 0.24 10*3/uL 0.00 - 0.42 K/uL [facility] Eosinophils/100 WBC (Bld) 2.7 % [facility] Erythrocyte distribution width (RBC) [Ratio] 15.4 % High 10.8 - 14.9 % [facility] Hematocrit (Bld) [Volume fraction] 37.7 % 34.9 - 44.3 % [facility] Hemoglobin (Bld) [Mass/Vol] 12.1 g/dL 11.4 - 15.2 g/dL [facility] Immature granulocytes (Bld) [#/Vol] 0.09 10*3/uL High NINF - 0.08 K/uL [facility] Immature granulocytes/100 WBC (Bld) 1 % [facility] Interpretation and review of laboratory results Abnormal [facility] Lymphocytes (Bld) [#/Vol] 2.76 10*3/uL 1.16 - 3.51 K/uL [facility] Lymphocytes/100 WBC (Bld) 31.3 % [facility] MCH (RBC) [Entitic mass] 25.4 pg Low 25.9 - 33.9 pg [facility] MCHC (RBC) [Mass/Vol] 32.1 g/dL 31.4 - 35.9 g/dL [facility] MCV (RBC) [Entitic vol] 79 fL Low 79.6 - 97.7 fL [facility] Monocytes (Bld) [#/Vol] 0.45 10*3/uL 0.22 - 0.87 K/uL [facility] Monocytes/100 WBC (Bld) 5.1 % [facility] Neutrophils (Bld) [#/Vol] 5.22 10*3/uL 1.64 - 7.28 K/uL [facility] Nucleated RBC/100 WBC (Bld) [Ratio] 0 % NINF [facility] Platelet mean volume (Bld) [Entitic vol] 9.8 fL 8.5 - 12.2 fL [facility] Platelets (Bld) [#/Vol] 251 10*3/uL 150 - 393 K/uL [facility] RBC (Bld) [#/Vol] 4.77 10*6/uL [facility] Segmented neutrophils/100 WBC (Bld) 59.1 % [facility] WBC (Bld) [#/Vol] 8.83 10*3/uL 3.99 - 11. 19 K/uL [facility] Basophils (Bld) [#/Vol] 0.07 10*3/uL Normal 0.00-0.15 [facility] Comment on above: Performed By: #### P CA #### [facility] (DEFAULT) [address] [place] [address] Basophils/100 WBC (Bld) 0.8 % Normal [facility] Comment on above: Performed By: #### P CA #### [facility] (DEFAULT) [address] [place] [address] DIFF STATUS Electronic Differential Normal [facility] Comment on above: Performed By: #### P CA #### [facility] (DEFAULT) [address] [place] [address] Eosinophils (Bld) [#/Vol] 0.24 10*3/uL Normal 0.00-0.42 [facility] Comment on above: Performed By: #### P CA #### [facility] (DEFAULT) [address] [address] Eosinophils/100 WBC (Bld) 2.7 % Normal [facility] Comment on above: Performed By: #### P CA #### [facility] (DEFAULT) [address] [place] [address] Hematocrit (Bld) [Volume fraction] 37.7 % Normal 34.9-44.3 [facility] Comment on above: Performed By: #### P CA #### [facility] (DEFAULT) [address] [address] Hemoglobin (Bld) [Mass/Vol] 12.1 g/dL Normal 11.4-15.2 [facility] Comment on above: Performed By: #### P CA #### [facility] (DEFAULT) [address] [address] Immature Grans % 1.0 % Normal [facility] Comment on above: Performed By: #### P CA #### [facility] (DEFAULT) [address] [address] Immature Grans Absolute 0.09 K/uL High <=0.08 [facility] Comment on above: Performed By: #### P CA #### [facility] (DEFAULT) [address] [place] [address] Lymphocytes (Bld) [#/Vol] 2.76 10*3/uL Normal 1.16-3.51 [facility] Comment on above: Performed By: #### P CA #### [facility] (DEFAULT) [address] [address] Lymphocytes/100 WBC (Bld) 31.3 % Normal [facility] Comment on above: Performed By: #### P CA #### [facility] (DEFAULT) [address] [address] MCV (RBC) [Entitic vol] 79.0 fL Low 79.6-97.7 [facility] Comment on above: Performed By: #### P CA #### [facility] (DEFAULT) [address] [address] Mean Cell Hgb 25.4 pg Low 25.9-33.9 [facility] Comment on above: Performed By: #### P CA #### [facility] (DEFAULT) [address] [address] Mean Cell Hgb Conc 32.1 g/dL Normal 31.4-35.9 [facility] Comment on above: Performed By: #### P CA #### [facility] (DEFAULT) [address] [address] Monocytes (Bld) [#/Vol] 0.45 10*3/uL Normal 0.22-0.87 [facility] Comment on above: Performed By: #### P CA #### [facility] (DEFAULT) [address] [address] Monocytes/100 WBC (Bld) 5.1 % Normal [facility] Comment on above: Performed By: #### P CA #### [facility] (DEFAULT) [address] [address] Nucleated RBC 0.0 /100 WBC Normal <=0.2 [facility] Comment on above: Performed By: #### P CA #### [facility] (DEFAULT) [address] [address] Platelet mean volume (Bld) [Entitic vol] 9.8 fL Normal 8.5-12.2 [facility] Comment on above: Performed By: #### P CA #### [facility] (DEFAULT) [address] [place] [address] Platelets (Bld) [#/Vol] 251 10*3/uL Normal 150-393 [facility] Comment on above: Performed By: #### P CA #### [facility] (DEFAULT) [address] [place] [address] RBC (Bld) [#/Vol] 4.77 10*6/uL Normal 3.91-5.04 [facility] Comment on above: Performed By: #### P CA #### [facility] (DEFAULT) [address] [place] [address] RBC Distribution 15.4 % High 10.8-14.9 [facility] Comment on above: Performed By: #### P CA #### [facility] (DEFAULT) [address] [place] [address] Segs + Bands Auto 59.1 % Normal [facility] Comment on above: Performed By: #### P CA #### [facility] (DEFAULT) [address] [place] [address] Segs + Bands,Absolute Auto 5.22 K/uL Normal 1.64-7.28 [facility] Comment on above: Performed By: #### P CA #### [facility] (DEFAULT) [address] [place] [address] WBC (Bld) [#/Vol] 8.83 10*3/uL Normal 3.99-11.19 [facility] Comment on above: Performed By: #### P CA #### [facility] (DEFAULT) [address] [place] [address] Basophils (Bld) [#/Vol] 0.07 10*3/uL Normal 0.00-0.15 [facility] Comment on above: Performed By: #### L [id number] #### [facility] (DEFAULT) [address] [address] Basophils/100 WBC (Bld) 0.9 % Normal [facility] Comment on above: Performed By: #### L [id number] #### [facility] (DEFAULT) [address] [address] DIFF STATUS Electronic Differential Normal [facility] Comment on above: Performed By: #### L [id number] #### [facility] (DEFAULT) [address] [address] Eosinophils (Bld) [#/Vol] 0.23 10*3/uL Normal 0.00-0.42 [facility] Comment on above: Performed By: #### L [id number] #### [facility] (DEFAULT) [address] [address] Eosinophils/100 WBC (Bld) 2.9 % Normal [facility] Comment on above: Performed By: #### L [id number] #### [facility] (DEFAULT) [address] [address] Hematocrit (Bld) [Volume fraction] 39.2 % Normal 34.9-44.3 [facility] Comment on above: Performed By: #### L [id number] #### [facility] (DEFAULT) [address] [address] Hemoglobin (Bld) [Mass/Vol] 12.2 g/dL Normal 11.4-15.2 [facility] Comment on above: Performed By: #### L [id number] #### [facility] (DEFAULT) [address] [address] Immature Grans % 1.1 % Normal [facility] Comment on above: Performed By: #### L [id number] #### [facility] (DEFAULT) [address] [address] Immature Grans Absolute 0.09 K/uL High <=0.08 [facility] Comment on above: Performed By: #### L [id number] #### [facility] (DEFAULT) [address] [place] [address] Lymphocytes (Bld) [#/Vol] 2.62 10*3/uL Normal 1.16-3.51 [facility] Comment on above: Performed By: #### L [id number] #### [facility] (DEFAULT) [address] [address] Lymphocytes/100 WBC (Bld) 32.5 % Normal [facility] Comment on above: Performed By: #### L [id number] #### [facility] (DEFAULT) [address] [address] MCV (RBC) [Entitic vol] 79.5 fL Low 79.6-97.7 [facility] Comment on above: Performed By: #### L [id number] #### [facility] ([facility] [address] [address] Mean Cell Hgb 24.7 pg Low 25.9-33.9 [facility] Comment on above: Performed By: #### L AB980 #### [facility] (DEFAULT) [address] [address] Mean Cell Hgb Conc 31.1 g/dL Low 31.4-35.9 [facility] Comment on above: Performed By: #### L [id number] #### [facility] (DEFAULT) [address] [place] [address] Monocytes (Bld) [#/Vol] 0.41 10*3/uL Normal 0.22-0.87 [facility] Comment on above: Performed By: #### L AB980 #### [facility] ([facility]) [address] [address] Monocytes/100 WBC (Bld) 5.1 % Normal [facility] Comment on above: Performed By: #### L AB980 #### [facility] (DEFAULT) [address] [place] [address] Nucleated RBC 0.0 /100 WBC Normal <=0.2 [facility] Comment on above: Performed By: #### L AB980 #### [facility] (DEFAULT) [address] [place] [address] Platelet mean volume (Bld) [Entitic vol] 10.6 fL Normal 8.5-12.2 [facility] Comment on above: Performed By: #### L AB980 #### [facility] (DEFAULT) [address] [place] [address] Platelets (Bld) [#/Vol] 266 10*3/uL Normal 150-393 [facility] Comment on above: Performed By: #### L AB980 #### [facility] ([facility] [address] [place] [address] RBC (Bld) [#/Vol] 4.93 10*6/uL Normal 3.91-5.04 [facility] Comment on above: Performed By: #### L AB980 #### [facility] ([facility] [address] [address] RBC Distribution 15.6 % High 10.8-14.9 [facility] Comment on above: Performed By: #### L AB980 #### [facility] (DEFAULT) [address] [address] Segs + Bands Auto 57.5 % Normal [facility] Comment on above: Performed By: #### L AB980 #### [facility] (DEFAULT) [address] [address] Segs + Bands,Absolute Auto 4.63 K/uL Normal 1.64-7.28 [facility] Comment on above: Performed By: #### L AB980 #### [facility] (DEFAULT) [address] [place] [address] WBC (Bld) [#/Vol] 8.05 10*3/uL Normal 3.99-11.19 [facility] Comment on above: Performed By: #### L AB980 #### [facility] (DEFAULT) [address] [place] [address] CHROMOGRANIN Aon 12-24-2024 Chromogranin A 756 ng/mL High <93 [facility] Comment on above: Result Comment: Impa ired renal or hepatic function or treatment with proton pump inhibitors may result in artifactual elevations of Chromogranin A. ADDITIONAL INFORMATION The testing method is a homogeneous time-resolved immunofluorescent assay manufactured by [employer] and performed on the [employer] Systemeor Compact Plus. Values obtained with different assay [...] examination and other findings. Test Performed by: [place] [address] Manufacturing Sales Representative: Juana Recio Ph.D.; CLIA# [id number] Performed By: #### Char DOCKERY, JOANO #### [facility] (DEFAULT) [address] [place], [place] [id number] Chromogranin A 678 ng/mL High <93 [facility] Comment on above: Result Comment: Impa ired renal or hepatic function or treatment with proton pump inhibitors may result in artifactual elevations of Chromogranin A. ADDITIONAL INFORMATION The testing method is a homogeneous time-resolved immunofluorescent assay manufactured by [employer] and performed on the [employer] Kryptor Compact Plus. Values obtained with different [...] examination and other findings. Test Performed by: [facility] [address] [place] [address] Manufacturing Sales Representative: Juana Recio Ph.D.; CLIA# [id number] Performed By: #### C MPN, LDO #### [facility] (DEFAULT) [address] [place] [address] [address]OLIC PANE [facility] 12-24-2024 Albumin [Mass/Vol] 3.8 g/dL 3.5 - 5.0 g/dL [facility] ALP [Catalytic activity/Vol] 143 U/L High 32 - 126 U/L [facility] ALT [Catalytic activity/Vol] 49 U/L High 9 - 48 U/L [facility] Anion gap [Moles/Vol] 10 mmol/L 7 - 17 mmol/L [facility] AST [Catalytic activity/Vol] 57 U/L High 10 - 39 U/L [facility] Bilirubin [Mass/Vol] 0.5 mg/dL NINF - 1.5 mg/dL [facility] Calcium [Mass/Vol] 9.6 mg/dL 8.6 - 10. 5 mg/dL [facility] Chloride [Moles/Vol] 95 mmol/L Low 98 - 10 8 mmol/L [facility] CO2 [Moles/Vol] 31 mmol/L 21 - 31 mmol/L [facility] Creatinine [Mass/Vol] 0.69 mg/dL 0.50 - 1.20 mg/dL [facility] eGFR, CKD-EPI, Female - PINF [facility] Comment on above: Reported eGFR is bas ed on the CKD-EPI 2020 equation using creatinine, age, and sex. Glucose [Mass/Vol] 312 mg/dL High 70 - 179 mg/dL [facility] Interpretation and review of laboratory results Abnormal [facility] Osmolality Calc [Osmolality] 291 [facility] Potassium [Moles/Vol] 4.7 mmol/L 3.5 - 5.0 mmol/L [facility] Protein [Mass/Vol] 9.1 g/dL High 6.4 - 8.3 g/dL [facility] Sodium [Moles/Vol] 131 mmol/L Low 135 - 145 mmol/L [facility] Urea nitrogen [Mass/Vol] 14 mg/dL 7 - 25 mg/dL [facility] Urea nitrogen/Creatinine [Mass ratio] 20 mg/mg [facility] Albumin [Mass/Vol] 3.8 g/dL Normal 3.5-5.0 [facility] Comment on above: Performed By: #### C MPN, LDO #### [facility] (DEFAULT) [address] [address] ALP [Catalytic activity/Vol] 143 U/L High 32-126 [facility] Comment on above: Performed By: #### C MPN, LDO #### [facility] (DEFAULT) [address] [address] ALT [Catalytic activity/Vol] 49 U/L High 9-48 [facility] Comment on above: Performed By: #### C MPN, LDO #### [facility] (DEFAULT) [address] [address] Anion gap [Moles/Vol] 10 mmol/L Normal 7-17 [facility] Comment on above: Performed By: #### C MPN, LDO #### [facility] (DEFAULT) [address] [address] AST [Catalytic activity/Vol] 57 U/L High 10-39 [facility] Comment on above: Performed By: #### C MPN, LDO #### [facility] (DEFAULT) [address] [place] [address] Bilirubin [Mass/Vol] 0.5 mg/dL Normal <1.5 [facility] Comment on above: Performed By: #### C MPN, LDO #### [facility] (DEFAULT) [address] [place] [address] Calcium [Mass/Vol] 9.6 mg/dL Normal 8.6-10.5 [facility] Comment on above: Performed By: #### C MPN, LDO #### [facility] (DEFAULT) [address] [place] [address] Chloride [Moles/Vol] 95 mmol/L Low 98-108 [facility] Comment on above: Performed By: #### C MPN, LDO #### [facility] (DEFAULT) [address] [place] [address] CO2 [Moles/Vol] 31 mmol/L Normal 21-31 [facility] Comment on above: Performed By: #### C MPN, LDO #### [facility] (DEFAULT) [address] [place] [address] Creatinine [Mass/Vol] 0.69 mg/dL Normal 0.50-1.20 [facility] Comment on above: Performed By: #### C MPN, LDO #### [facility] (DEFAULT) [address] [place] [address] eGFR, CKD-EPI, Female > Normal >=60 [facility] Comment on above: Result Comment: Repo rted eGFR is based on the CKD-EPI 2020 equation using creatinine, age, and sex. Performed By: #### C MPN, LDO #### [facility] (DEFAULT) [address] [place] [address] Glucose [Mass/Vol] 312 mg/dL High Nonfastin -179 mg/dL; Fastin-99 [facility] Comment on above: Performed By: #### C MPN, LDO #### [facility] (DEFAULT) [address] [place] [address] Osmolality [Osmolality] 291 mosm/kg Normal 278-305 [facility] Comment on above: Performed By: #### C MPN, LDO #### [facility] (DEFAULT) [address] [place] [address] Potassium [Moles/Vol] 4.7 mmol/L Normal 3.5-5.0 [facility] Comment on above: Performed By: #### C MPN, LDO #### [facility] (DEFAULT) [address] [place] [address] Protein [Mass/Vol] 9.1 g/dL High 6.4-8.3 [facility] Comment on above: Performed By: #### C MPN, LDO #### [facility] (DEFAULT) [address] [place] [address] Sodium [Moles/Vol] 131 mmol/L Low 135-145 [facility] Comment on above: Performed By: #### C MPN, LDO #### [facility] (DEFAULT) [address] [place] [address] Urea nitrogen [Mass/Vol] 14 mg/dL Normal 7-25 [facility] Comment on above: Performed By: #### C MPN, LDO #### [facility] (DEFAULT) [address] [place] [address] Urea nitrogen/Creatinine [Mass ratio] 20 mg/mg Normal [facility] Comment on above: Performed By: #### C MPN, LDO #### [facility] (DEFAULT) [address] [place] [address] Albumin [Mass/Vol] 3.8 g/dL Normal 3.5-5.0 [facility] Comment on above: Performed By: #### C MPN, LDO #### [facility] (DEFAULT) [address] [place] [address] ALP [Catalytic activity/Vol] 153 U/L High 32-126 [facility] Comment on above: Performed By: #### C MPN, LDO #### [facility] (DEFAULT) [address] [place] [address] ALT [Catalytic activity/Vol] 48 U/L Normal 9-48 [facility] Comment on above: Performed By: #### C MPN, LDO #### [facility] (DEFAULT) [address] [place] [address] Anion gap [Moles/Vol] 9 mmol/L Normal 7-17 [facility] Comment on above: Performed By: #### C MPN, LDO #### [facility] (DEFAULT) [address] [place] [address] AST [Catalytic activity/Vol] 56 U/L High 10-39 [facility] Comment on above: Performed By: #### C MPN, LDO #### [facility] (DEFAULT) [address] [place] [address] Bilirubin [Mass/Vol] 0.5 mg/dL Normal <1.5 [facility] Comment on above: Performed By: #### C MPN, LDO #### [facility] (DEFAULT) [address] [place] [address] Calcium [Mass/Vol] 9.5 mg/dL Normal 8.6-10.5 [facility] Comment on above: Performed By: #### C MPN, LDO #### [facility] (DEFAULT) [address] [place] [address] Chloride [Moles/Vol] 93 mmol/L Low 98-108 [facility] Comment on above: Performed By: #### C MPN, LDO #### [facility] (DEFAULT) [address] [place] [address] CO2 [Moles/Vol] 34 mmol/L High 21-31 [facility] Comment on above: Performed By: #### C MPN, LDO #### [facility] (DEFAULT) [address] [place] [address] Creatinine [Mass/Vol] 0.69 mg/dL Normal 0.50-1.20 [facility] Comment on above: Performed By: #### C MPN, LDO #### [facility] (DEFAULT) [address] [place] [address] eGFR, CKD-EPI, Female > Normal >=60 [facility] Comment on above: Result Comment: Repo rted eGFR is based on the CKD-EPI 2020 equation using creatinine, age, and sex. Performed By: #### C MPN, LDO #### [facility] (DEFAULT) [address] [place] [address] Glucose [Mass/Vol] 288 mg/dL High Nonfastin -179 mg/dL; Fastin-99 [facility] Comment on above: Performed By: #### C MPN, LDO #### [facility] (DEFAULT) [address] [place] [address] Osmolality [Osmolality] 291 mosm/kg Normal 278-305 [facility] Comment on above: Performed By: #### C MPN, LDO #### [facility] (DEFAULT) [address] [place] [address] Potassium [Moles/Vol] 4.4 mmol/L Normal 3.5-5.0 [facility] Comment on above: Performed By: #### C MPN, LDO #### [facility] (DEFAULT) [address] [place] [address] Protein [Mass/Vol] 9.2 g/dL High 6.4-8.3 [facility] Comment on above: Performed By: #### C MPN, LDO #### [facility] (DEFAULT) [address] [place] [address] Sodium [Moles/Vol] 132 mmol/L Low 135-145 [facility] Comment on above: Performed By: #### C MPN, LDO #### [facility] (DEFAULT[facility] [address] [place] [address] Urea nitrogen [Mass/Vol] 14 mg/dL Normal 7-25 [facility] Comment on above: Performed By: #### C MPN, LDO #### [facility] (DEFAULT) [address] [place] [address] Urea nitrogen/Creatinine [Mass ratio] 20 mg/mg Normal [facility] Comment on above: Performed By: #### C MPN, LDO #### [facility] (DEFAULT) [address] [place] [address] CREAT/GFRon 12-24-2024 Creatinine [Mass/Vol] 0.69 mg/dL 0.50 - 1.20 mg/dL [facility] GFR/1.73 sq M.predicted CKD-EPI (S/P/Bld) [Vol rate/Area] - PINF [facility] Comment on above: Reported eGFR is bas ed on the CKD-EPI 2020 equation using creatinine, age, and sex. Interpretation and review of laboratory results Normal [facility] Test performed at ad dress of the patient encounter. [facility] GASTRIN - NON-STIMULATEDon 0 12-24-2024 Gastrin 1296 pg/mL High [facility] Comment on above: Result Comment: REFERENCE VALUE <100 Reference ranges valid for >= 8 hour fast. Test Performed by: [facility] [address] [place] [address] Manufacturing Sales Representative: Juana Recio Ph.D.; CLIA# [id number] Performed By: #### C MPN, LDO #### [facility] (DEFAULT) [address] [place] [address] LACTATE DEHYDROGENASEon 06-0 Interpretation and review of laboratory results Normal [facility] LDH Lactate to pyruvate reaction [Catalytic activity/Vol] 162 U/L 100 - 190 U/L [facility] LD Total 162 U/L Normal 100-190 [facility] Comment on above: Performed By: #### C NAHED, LDO #### [facility] (DEFAULT) [address] [address] LD Total 170 U/L Normal 100-190 [facility] Comment on above: Performed By: #### C MPN, LDO #### [facility] (DEFAULT) [address] [address] METHYLMALONIC ACIDon 025 METHYLMALONIC ACID 0.34 nmol/mL Normal <=0.40 [facility] Comment on above: Result Comment: ADDITIONAL INFORMATION This test was developed and its performance characteristics determined by [facility] in a manner consistent with CLIA requirements. This test has not been cleared or approved by the U.S. Food and Drug Administration. Test Performed by: [facility] [place] [address] Manufacturing Sales Representative: Juana Recio Ph.D.; CLIA# [id number] Performed By: #### Char DOCKERY, LDO #### [facility] (DEFAULT) [address] [place] [address] No Panel Informationon 12-24 [facility] PANCREATIC POLYPEPTIDEon Pancreatic Polypeptide 739 pg/mL High <291 [facility] Comment on above: Result Comment: ADDITIONAL INFORMATION This test was developed and its performance characteristics determined by [facility] in a manner consistent with CLIA requirements. This test has not been cleared or approved by the U.S. Food and Drug Administration. Test Performed by: [facility] [address] [place] [id number] Manufacturing Sales Representative: Juana Recio Ph.D.; CLIA# [id number] Performed By: #### C MPN, LDO #### [facility] ([facility]) [address] [place] [address] LABORATORYOrdered By: Anali Levy on 12-02-2024 Albumin DL <= 20 mg/L (U) [Mass/Vol] 229.1 mg/L Invalid Interpretation Code AO ADM SS Albumin/Creatinine DL <= 20 mg/L (U) [Mass ratio] 308 mg/G High 0 - 30 mg/G AO Chemistry S Creatinine (U) [Mass/Vol] 74.4 mg/dL Normal 29.0 - 226.0 mg/dL AO ADM SS MALBRon 12-02-2024 U Creatinine 74.4 mg/dL Normal 29.0-226.0 [facility] Comment on above: Performed By: #### M ALBR #### [address] [address] U Microalb 229.1 mg/L Normal [facility] Comment on above: Performed By: #### M ALBR #### [address] [address] U Ratio Alb/Cre 308 mg/G High 0-30 [facility] Comment on above: Performed By: #### M ALBR #### [address] [address] No Panel Informationon 12-02 Culture Urine 50,000 - 100,000 cfu /ml Mixed growth consistent with normal urogenital keiko. [facility] Work Phone: .Auto Diffon 11-06-2024 Basophil, Absolute 0.0 10 3/mcL Normal 0.0-0.3 [facility] Comment on above: Performed By: #### C MP, ADIFF, CBC, PBNP, GFR, ANEU #### [place] [address] [place], [place] [address] Basophils/100 WBC (Bld) 0.5 % Normal 0.0-2.5 [facility] Comment on above: Performed By: #### C MP, ADIFF, CBC, PBNP, GFR, ANEU #### [address] [address] Eosinophil, Absolute 0.2 10 3/mcL Normal 0.0-0.7 [facility] Comment on above: Performed By: #### C MP, ADIFF, CBC, PBNP, GFR, ANEU #### [address] [address] Eosinophils/100 WBC (Bld) 2.3 % Normal 0.0-6.0 [facility] Comment on above: Performed By: #### C MP, ADIFF, CBC, PBNP, GFR, ANEU #### [address] [address] Lymphocyte, Absolute 2.2 10 3/mcL Normal 0.9-4.3 [facility] Comment on above: Performed By: #### C MP, ADIFF, CBC, PBNP, GFR, ANEU #### [address] [address] Lymphocytes/100 WBC (Bld) 29.0 % Normal 20.0-40.0 [facility] Comment on above: Performed By: #### C MP, ADIFF, CBC, PBNP, GFR, ANEU #### [address] [address] Monocyte, Absolute 0.4 10 3/mcL Normal 0.1-1.4 [facility] Comment on above: Performed By: #### C MP, ADIFF, CBC, PBNP, GFR, ANEU #### [address] [address] Monocytes/100 WBC (Bld) 5.0 % Normal 2.0-13.0 [facility] Comment on above: Performed By: #### C MP, ADIFF, CBC, PBNP, GFR, ANEU #### [address] [address] Neutrophils/100 WBC (Bld) 63.2 % Normal 50.0-75.0 [facility] Comment on above: Performed By: #### C MP, ADIFF, CBC, PBNP, GFR, ANEU #### [address] [address] .GFRon 11-06-2024 Estimated Glomerular Filtration Rate 74 ml/min/1.73sqm Normal [facility] Comment on above: Result Comment: Stages of [...] MP, ADIFF, CBC, PBNP, GFR, ANEU #### [address] [address] .NEUABSon 11-06-2024 Neutrophil, Absolute 4.9 10 3/mcL Normal 2.3-8.1 [facility] Comment on above: Performed By: #### C MP, ADIFF, CBC, PBNP, GFR, ANEU #### [address] [address] CBCon 11-06-2024 Erythrocyte distribution width (RBC) [Ratio] 16.2 % High 11.5-15.5 [facility] Comment on above: Performed By: #### C MP, ADIFF, CBC, PBNP, GFR, ANEU #### [address] [address] Hematocrit (Bld) [Volume fraction] 35.3 % Normal 34.0-46.0 [facility] Comment on above: Performed By: #### C MP, ADIFF, CBC, PBNP, GFR, ANEU #### [address] [address] Hgb 11.4 G/dL Low 12.0-16.0 [facility] Comment on above: Performed By: #### C MP, ADIFF, CBC, PBNP, GFR, ANEU #### [address] [address] MCH (RBC) [Entitic mass] 25.3 pg Low 27.0-33.0 [facility] Comment on above: Performed By: #### C MP, ADIFF, CBC, PBNP, GFR, ANEU #### [address] [address] MCHC 32.5 G/dL Normal 32.0-36.0 [facility] Comment on above: Performed By: #### C MP, ADIFF, CBC, PBNP, GFR, ANEU #### [address] [address] MCV (RBC) [Entitic vol] 78.0 fL Low 80.0-99.0 [facility] Comment on above: Performed By: #### C MP, ADIFF, CBC, PBNP, GFR, ANEU #### [address] [address] Platelet 189 10 3/mcL Normal 150-450 [facility] Comment on above: Performed By: #### C MP, ADIFF, CBC, PBNP, GFR, ANEU #### [address] [address] Platelet mean volume (Bld) [Entitic vol] 8.3 fL Normal 6.6-10.5 [facility] Comment on above: Performed By: #### C MP, ADIFF, CBC, PBNP, GFR, ANEU #### [address] [address] RBC 4.52 10 6/mcL Normal 4.10-5.30 [facility] Comment on above: Performed By: #### C MP, ADIFF, CBC, PBNP, GFR, ANEU #### [address] [address] WBC 7.7 10 3/mcL Normal 4.5-10.8 [facility] Comment on above: Performed By: #### C MP, ADIFF, CBC, PBNP, GFR, ANEU #### [place] [id number] CMPon 11-06-2024 Albumin Level 2.9 G/dL Low 3.5-5.0 [facility] Comment on above: Performed By: #### C MP, ADIFF, CBC, PBNP, GFR, ANEU #### [place] [address] Albumin/Globulin [Mass ratio] 0.5 {ratio} Low 1.1-2.5 [facility] Comment on above: Performed By: #### C MP, ADIFF, CBC, PBNP, GFR, ANEU #### [place] [address] ALP [Catalytic activity/Vol] 194 U/L High 40-135 [facility] Comment on above: Performed By: #### C MP, ADIFF, CBC, PBNP, GFR, ANEU #### [place] [address] ALT [Catalytic activity/Vol] 89 U/L High 14-59 [facility] Comment on above: Performed By: #### C MP, ADIFF, CBC, PBNP, GFR, ANEU #### [place] [address] AST [Catalytic activity/Vol] 100 U/L High 10-40 [facility] Comment on above: Performed By: #### C MP, ADIFF, CBC, PBNP, GFR, ANEU #### [place] [address] Bili Total 0.3 mg/dL Normal 0.2-1.0 [facility] Comment on above: Result Comment: Use of this assay is not recommended for patients undergoing treatment with eltrombopag due to the potential for falsely elevated results. Performed By: #### C MP, ADIFF, CBC, PBNP, GFR, ANEU #### [place] [address] BUN/Creatinine Ratio 24 ratio Normal 7-27 [facility] Comment on above: Performed By: #### C MP, ADIFF, CBC, PBNP, GFR, ANEU #### [address] [address] Calcium [Mass/Vol] 8.7 mg/dL Normal 8.4-10.2 [facility] Comment on above: Performed By: #### C MP, ADIFF, CBC, PBNP, GFR, ANEU #### [address] [address] Chloride [Moles/Vol] 97 mmol/L Low 98-107 [facility] Comment on above: Performed By: #### C MP, ADIFF, CBC, PBNP, GFR, ANEU #### [address] [address] CO2 [Moles/Vol] 32 mmol/L High 22-29 [facility] Comment on above: Performed By: #### C MP, ADIFF, CBC, PBNP, GFR, ANEU #### [address] [address] Creatinine [Mass/Vol] 0.91 mg/dL Normal 0.55-1.02 [facility] Comment on above: Result Comment: Test ing performed on Siemens Dimension EXL analyzer using a modified kinetic Avila technique. Performed By: #### C MP, ADIFF, CBC, PBNP, GFR, ANEU #### [address] [address] Electrolyte Balance 1.0 mEq/L Low 4.0-15.0 [facility] Comment on above: Performed By: #### C MP, ADIFF, CBC, PBNP, GFR, ANEU #### [address] [address] Globulin 5.6 G/dL High 1.5-3.8 [facility] Comment on above: Performed By: #### C MP, ADIFF, CBC, PBNP, GFR, ANEU #### [address] [address] Glucose [Mass/Vol] 394 mg/dL High 70-105 [facility] Comment on above: Performed By: #### C MP, ADIFF, CBC, PBNP, GFR, ANEU #### [address] [address] Potassium [Moles/Vol] 4.9 mmol/L Normal 3.5-5.1 L [facility] Comment on above: Performed By: #### C MP, ADIFF, CBC, PBNP, GFR, ANEU #### [address] [address] Sodium [Moles/Vol] 130 mmol/L Low 136-145 [facility] Comment on above: Performed By: #### C MP, ADIFF, CBC, PBNP, GFR, ANEU #### [address] [address] Total Protein 8.5 G/dL High 6.4-8.2 [facility] Comment on above: Performed By: #### C MP, ADIFF, CBC, PBNP, GFR, ANEU #### [address] [address] Urea nitrogen [Mass/Vol] 22 mg/dL High 7-18 [facility] Comment on above: Performed By: #### C MP, ADIFF, CBC, PBNP, GFR, ANEU #### [address] [address] LABORATORYOrdered By: SYSTEM SYSTEM on 11-06-2024 Albumin [...] (Bld) [Mass/Vol] 77 pg/mL Normal 0-125 [facility] Comment on above: Result Comment: NT-p roBNP results of less than 300 pg/mL effectively rules out acute congestive heart failure with 99% negative predictive value. Performed By: #### C MP, ADIFF, CBC, PBNP, GFR, ANEU #### [facility] [address] [place], [place] [address] Urine Cultureon 11-06-2024 URC Organism is too fast idious for routine susceptibility studies. Urine Culture Aerococcus urinae Mcbain Count 50,000-80,000 Normal [facility] Comment on above: Performed By: #### M 100.2200 ####[facility] [address] [place], [place], [id number] Absolute lymphocyte countOrd ered By: Velasquez Hill on 11-03-2024 Lymphocytes Auto (Unsp spec) [#/Vol] 2.97 10*3/uL 0.83-4.51 [facility] Absolute neutrophil countOrd ered By: Velasquez Hill on 11-03-2024 Neutrophils (Bld) [#/Vol] 5.6 10*3/uL 2.0-7.7 [facility] Anion gap in Serum or Plasma Ordered By: Velasquez Hill on 11-03-2024 Anion gap [Moles/Vol] 8 mmol/L 12-03 [facility] Automated lymphocyte count a s percentage of total leukocytesOrdered By: Velasquez Hill on 11-03-2024 Lymphocytes/100 WBC Auto (Unsp spec) 31.4 % 19-41 [facility] BUN/creatinine ratioOrdered By: Velasquez Hill on 11-03-2024 Urea nitrogen/Creatinine [Mass ratio] 23.0 mg/mg High - [facility] Basic Metabolic Profile (BMP )on 11-03-2024 BUN/CRE 23.0 RATIO High 05-10 [facility] Comment on above: Performed By: #### L 501.6901, L500.2500, L100.0100 ####[facility] [address] [place], [address] Calcium [Mass/Vol] 9.3 mg/dL Normal 7.6-11.[address] [facility] Comment on above: Performed By: #### L 501.6901, L500.2500, L100.0100 ####[facility] [address] [place], [address] Chloride [Moles/Vol] 98 mmol/L Normal 98-108 [facility] Comment on above: Performed By: #### L 501.6901, L500.2500, L100.0100 ####[facility] [address] [place], [address] CO2 [Moles/Vol] 25.3 mmol/L Normal 21.0-32.0 [facility] Comment on above: Performed By: #### L 501.6901, L500.2500, L100.0100 ####[facility] [address] [place], [address] Creatinine [Mass/Vol] 1.02 mg/dL Normal 0.70-1.20 [facility] Comment on above: Performed By: #### L 501.6901, L500.2500, L100.0100 ####[facility] [address] [place], [address] ECRCL 70.28 ml/min Normal 50-250 [facility] Comment on above: Performed By: #### L 501.6901, L500.2500, L100.0100 ####[facility] [address] [place], [address] GAP 8 Normal 5-15 [facility] Comment on above: Performed By: #### L 501.6901, L500.2500, L100.0100 ####[facility] [address] [place], [address] GFR/1.73 sq M.predicted among non-blacks MDRD (S/P/Bld) [Vol rate/Area] 64 mL/min/{1.73_m2} Normal >60 [facility] Comment on above: Result Comment: mL/m in/1.73m2 CKD-EPI Creatinine Equation (2020) Performed By: #### L 501.6901, L500.2500, L100.0100 ####[facility] [address] [place], [address] Glucose [Mass/Vol] 391 mg/dL High 70-[address] [facility] Comment on above: Performed By: #### L 501.6901, L500.2500, L100.0100 ####[facility] [address] [place], [address] Potassium [Moles/Vol] 4.9 mmol/L Normal 3.3-5.1 [facility] Comment on above: Performed By: #### L 501.6901, L500.2500, L100.0100 ####[facility] [address] [place], [address] Sodium [Moles/Vol] 132 mmol/L Low 133-[address] [facility] Comment on above: Performed By: #### L 501.6901, L500.2500, L100.0100 ####[facility] [address] [place], [address] Urea nitrogen [Mass/Vol] 24 mg/dL High 4-19 [facility] Comment on above: Performed By: #### L 501.6901, L500.2500, L100.0100 ####[facility] [address] [place], [address] Basophil percentageOrdered B y: Velasquez Hill on 11-03-2024 Basophils/100 WBC (Bld) 0.7 % 0-1 [facility] Beta hydroxybutyrate [Mass/V ol]Ordered By: Velasquez Hill on 11-03-2024 Beta-Hydroxybutyric Acid mmol/L 0.1 mmol/L 0.0-0.3 [facility] Beta-Hydroxbytyrateon 2024 BETA-HYDROXYBUT 0.1 mmol/L Normal 0.0-0.3 [facility] Comment on above: Performed By: #### L 501.6901, L500.2500, L100.0100 ####[facility] [address] [place], [address] Beta-hydroxybutyrateOrdered By: Velasquez Hill on 11-03-2024 Beta hydroxybutyrate [Mass/Vol] 0.1 mmol/L 0.0-0.3 [facility] Bilirubin Test strip Ql (U)O rdered By: Velasquezjack Hill on 11-03-2024 Bilirubin Ql (U) Negative Negative [facility] CBC W/Diff, Automatedon 10-20 Absolute Lymph 2.97 X10 3/uL Normal 0.83-4.51 [facility] Comment on above: Performed By: #### L 501.6901, L500.2500, L100.0100 ####[facility] [address] [place], [address] Absolute Neut 5.6 X10 3/uL Normal 2.0-7.7 [facility] Comment on above: Performed By: #### L 501.6901, L500.2500, L100.0100 ####[facility] [address] [place], [address] Basophils/100 WBC (Bld) 0.7 % Normal 0-1 [facility] Comment on above: Performed By: #### L 501.6901, L500.2500, L100.0100 ####[facility] [address] [place], [address] Eosinophils/100 WBC (Bld) 1.9 % Normal 0-5 [facility] Comment on above: Performed By: #### L 501.6901, L500.2500, L100.0100 ####[facility] [address] [place], [address] Erythrocyte distribution width (RBC) [Ratio] 15.3 % High 11.6-14.6 [facility] Comment on above: Performed By: #### L 501.6901, L500.2500, L100.0100 ####[facility] [address] [place], [address] Hematocrit (Bld) [Volume fraction] 36.1 % Low 37-47 [facility] Comment on above: Performed By: #### L 501.6901, L500.2500, L100.0100 ####[facility] [address] [place], [address] Hemoglobin (Bld) [Mass/Vol] 11.7 g/dL Low 12.0-15.0 [facility] Comment on above: Performed By: #### L 501.6901, L500.2500, L100.0100 ####[facility] [address] [place], [address] IG% 1.800 High 0.0-0.9 [facility] Comment on above: Result Comment: IG% - Immature Granulocytes (promyelocytes, myelocytes andmetamyelocytes) > 1% indicates that a LEFT SHIFT is Present. Performed By: #### L 501.6901, L500.2500, L100.0100 ####[facility] [address] [place], [address] Lymphocytes/100 WBC (Bld) 31.4 % Normal 19-41 [facility] Comment on above: Performed By: #### L 501.6901, L500.2500, L100.0100 ####[facility] [address] [place], [address] MCH (RBC) [Entitic mass] 25.3 pg Low 27.0-32.0 [facility] Comment on above: Performed By: #### L 501.6901, L500.2500, L100.0100 ####[facility] [address] [place], [address] MCHC (RBC) [Mass/Vol] 32.4 g/dL Normal 32-36 [facility] Comment on above: Performed By: #### L 501.6901, L500.2500, L100.0100 ####[facility] [address] [place], [address] MCV (RBC) [Entitic vol] 78.1 fL Low 81-99 [facility] Comment on above: Performed By: #### L 501.6901, L500.2500, L100.0100 ####[facility] [address] [place], [address] Monocytes/100 WBC (Bld) 5.3 % Normal 0-10 [facility] Comment on above: Performed By: #### L 501.6901, L500.2500, L100.0100 ####[facility] [address] [place], [address] Neutrophils/100 WBC (Bld) 58.9 % Normal 47-70 [facility] Comment on above: Performed By: #### L 501.6901, L500.2500, L100.0100 ####[facility] [address] [place], [address] Nucleated RBC (Bld) [#/Vol] 0 10*3/uL Normal 0-5 [facility] Comment on above: Performed By: #### L 501.6901, L500.2500, L100.0100 ####[facility] [address] [place], [address] Platelet mean volume (Bld) [Entitic vol] 9.9 fL Normal 6.2-12.0 [facility] Comment on above: Performed By: #### L 501.6901, L500.2500, L100.0100 ####[facility] [address] [place], [address] Platelets (Bld) [#/Vol] 203 10*3/uL Normal 150-450 [facility] Comment on above: Performed By: #### L 501.6901, L500.2500, L100.0100 ####[facility] [address] [place], [address] RBC (Bld) [#/Vol] 4.62 10*6/uL Normal 4.2-5.4 [facility] Comment on above: Performed By: #### L 501.6901, L500.2500, L100.0100 ####[facility] [address] [place], [address] RDW SD 43.0 fl Normal 35.1-43.9 [facility] Comment on above: Performed By: #### L 501.6901, L500.2500, L100.0100 ####[facility] [address] [place], [address] WBC (Bld) [#/Vol] 9.5 10*3/uL Normal 4.4-11.[address] [facility] Comment on above: Performed By: #### L 501.6901, L500.2500, L100.0100 ####[facility] [address] [place], [address] Carbon dioxide, total [Moles /volume] in Central venous bloodOrdered By: Velasquez Hill on 11-03-2024 CO2 [Moles/Vol] 25.3 mmol/L 21.0-32.0 [facility] Chloride assayOrdered By: Raymundo Hill on 11-03-2024 Chloride [Moles/Vol] 98 mmol/L 98-108 [facility] Emergency Department Summary on 11-03-2024 Emergency Department Summary Normal [facility] Eosinophil percentageOrdered By: Velasquez Hill on 11-03-2024 Eosinophils/100 WBC (Bld) 1.9 % 0-5 [facility] Epithelial cells.squamous LM Ql (Urine sed)Ordered By: Velasquez Hill on 11-03-2024 Epithelial cells.squamous LM.HPF (Urine sed) [#/Area] 0 /[HPF] 5-10 [facility] Erythrocyte distribution wid th (RBC) [Ratio]Ordered By: Velasquez Hill on 11-03-2024 Erythrocyte distribution width (RBC) [Entitic vol] 43.0 fL 35.1-43.9 [facility] Erythrocyte distribution wid th ratioOrdered By: Velasquez Hill on 11-03-2024 Erythrocyte distribution width (RBC) [Ratio] 15.3 % High 11.6-14.6 [facility] Erythrocyte distribution wid th standard deviationOrdered By: Velasquez Hill on 11-03-2024 Erythrocyte distribution width (RBC) [Ratio] 43.0 fl 35.1-43.9 [facility] Estimation of creatinine carol aranceOrdered By: Velasquez Hill on 11-03-2024 Estimated Creatinine Clearance Calc 70.28 ml/min 50-250 [facility] GFR/1.73 sq M.predicted jace g non-blacks MDRD (S/P/Bld) [Vol rate/Area]Ordered By: Velasquez Hill on 11-03-2024 Estimated GFR (MDRD) Non-Af Amer 64 >60 [facility] Comment on above: mL/min/1.73m2 CKD-EP I Creatinine Equation (2020) Glomerular filtration rate ( GFR) estimation/1.73 sq m using serum, plasma, or whole bOrdered By: Velasquez Hill on 11-03-2024 GFR/1.73 sq M.predicted among non-blacks MDRD (S/P/Bld) [Vol rate/Area] 64 mL/min/{1.73_m2} >60 [facility] Comment on above: mL/min/1.73m2 CKD-EP I Creatinine Equation (2020) Glucose Ql (U)Ordered By: Raymundo Hill on 11-03-2024 Glucose (U) [Mass/Vol] 1000 mg/dL High Normal [facility] Hematocrit Auto (Bld) [Volum e fraction]Ordered By: Velasquez Hill on 11-03-2024 Hematocrit (Bld) [Volume fraction] 36.1 % Low 37-47 [facility] Hemoglobin measurementOrdere d By: Velasquez Hill on 11-03-2024 Hemoglobin (Bld) [Mass/Vol] 11.7 g/dL Low 12.0-15.0 [facility] Immature granulocytes/100 WB C Auto (Bld)Ordered By: Velasquez Hill on 11-03-2024 Immature granulocytes/100 WBC (Bld) 1.800 % High 0.0-0.9 [facility] Comment on above: IG% - Immature Granu locytes (promyelocytes, myelocytes and metamyelocytes) > 1% indicates that a LEFT SHIFT is Present. Ketones Test strip Ql (U)Ord ered By: Velasquez Hill on 11-03-2024 Ketones Ql (U) Negative Negative [facility] Lymphocytes Auto (Unsp spec) [#/Vol]Ordered By: Velasquez Hill on 11-03-2024 Lymphocytes (Bld) [#/Vol] 2.97 10*3/uL 0.83-4.51 [facility] Lymphocytes/100 WBC Auto (Un sp spec)Ordered By: eVlasquez Hill on 11-03-2024 Lymphocytes/100 WBC (Bld) 31.4 % 19-41 [facility] MCV (mean corpuscular volume ) determinationOrdered By: Velasquez Hill on 11-03-2024 MCV (RBC) [Entitic vol] 78.1 fL Low 81-99 [facility] Mean corpuscular hemoglobin (MCH) determinationOrdered By: Velasquez Hill on 11-03-2024 MCH (RBC) [Entitic mass] 25.3 pg Low 27.0-32.0 [facility] Mean corpuscular hemoglobin concentration (MCHC) determinationOrdered By: Velasquez Hill on 11-03-2024 MCHC (RBC) [Mass/Vol] 32.4 g/dL 32-36 [facility] Mean platelet volume determi nationOrdered By: Velasquez Hill on 11-03-2024 Platelet mean volume (Bld) [Entitic vol] 9.9 fL 6.2-12.0 [facility] Microscopic analysis of urin e for red blood cells (RBC)Ordered By: Velasquez Hill on 11-03-2024 Microscopic analysis of urine for red blood cells (RBC) 25-50 SEEN /hpf 0-5 [facility] Urine RBC 25-50 SEEN /hpf 0-5 [facility] Monocyte percentageOrdered B y: Velasquez Hill on 11-03-2024 Monocytes/100 WBC (Bld) 5.3 % 0-10 [facility] Mucus LM Ql (Urine sed)Order ed By: Velasquez Hill on 11-03-2024 Mucus Ql (Urine sed) 0 SEEN /hpf [facility] Neutrophil percentageOrdered By: Velasquez Hill on 11-03-2024 Neutrophils/100 WBC (Bld) 58.9 % 47-70 [facility] Nitrite Test strip Ql (U)Ord ered By: Velasquez Hill on 11-03-2024 Nitrite Ql (U) Negative Negative [facility] Nucleated red blood cell per centageOrdered By: Velasquez Hill on 11-03-2024 Nucleated RBC/100 WBC (Bld) [Ratio] 0 % 0-5 [facility] Platelet countOrdered By: Raymundo Hill on 11-03-2024 Platelets (Bld) [#/Vol] 203 10*3/uL 150-450 [facility] Potassium (Unsp spec) [Mass/ Vol]Ordered By: Velasquez Hill on 11-03-2024 Potassium [Moles/Vol] 4.9 mmol/L 3.3-5.1 [facility] Potassium measurement (mass/ volume)Ordered By: Velasquez Hill on 11-03-2024 Potassium (Unsp spec) [Mass/Vol] 4.9 mmol/L 3.3-5.1 [facility] Protein Test strip Ql (U)Ord ered By: Velasquez Hill on 11-03-2024 Protein Ql (U) 30 mg/dl High Negative [facility] RBC Auto (Bld) [#/Vol]Ordere d By: Velasquezjack Hill on 11-03-2024 RBC (Bld) [#/Vol] 4.62 10*6/uL 4.2-5.4 [facility] Serum creatinine measurement (mass/volume)Ordered By: Velasquez Hill on 11-03-2024 Creatinine [Mass/Vol] 1.02 mg/dL 0.70-1.20 [facility] Serum glucose measurement (m ass/volume)Ordered By: Velasquez Hill on 11-03-2024 Glucose [Mass/Vol] 391 mg/dL High 70-[address] [facility] Serum or plasma calcium janie urement (mass/volume)Ordered By: Velasquez Hill on 11-03-2024 Calcium [Mass/Vol] 9.3 mg/dL 7.6-11.[address] [facility] Serum or plasma urea nitroge n measurement (mass/volume)Ordered By: Velasquez Hill on 11-03-2024 Urea nitrogen [Mass/Vol] 24 mg/dL High 4-19 [facility] Sodium levelOrdered By: Velasquez Hill on 11-03-2024 Sodium [Moles/Vol] 132 mmol/L Low 133-[address] [facility] Squamous epithelial cells de tection in urine sediment by light microscopyOrdered By: Velasquez Hill on 11-03-2024 Epithelial cells.squamous LM Ql (Urine sed) 0-5 SEEN /hpf 5-10 [facility] Urinalysis, Completeon 11-03 BACTERIA 1+ /hpf Normal None Seen [facility] Comment on above: Order Comment: CLEAN CATCH Performed By: #### L 400.0001 ####[facility] [address] [place], [place], [id number] EPI,SQUAMOUS 0-5 SEEN Normal 5-10 [facility] Comment on above: Order Comment: CLEAN CATCH Performed By: #### L 400.0001 ####[facility] [address] [place], [place], [id number] RBC 25-50 SEEN Normal 0-5 [facility] Comment on above: Order Comment: CLEAN CATCH Performed By: #### L 400.0001 ####[facility] [address] [place], [address] WBC 25-50 SEEN Normal 0-5 [facility] Comment on above: Order Comment: CLEAN CATCH Performed By: #### L 400.0001 ####[facility] [address] [place], [address] Mucus Ql (Urine sed) 0 SEEN Normal [facility] Comment on above: Order Comment: CLEAN CATCH Performed By: #### L 400.0001 ####[facility] [address] [place], [address] Urine blood detectionOrdered By: Velasquez Hill on 11-03-2024 Urine Occult Blood 150 /ul High Negative [facility] Urine clarityOrdered By: Loan Hill on 11-03-2024 Clarity (U) Clear Clear [facility] Urine color determinationOrd ered By: Velasquez Hill on 11-03-2024 Color (U) Yellow Yellow [facility] Urine cultureOrdered By: Loan Hill on 11-03-2024 Bacteria identified Cx Nom (U) Aerococcus urinae Abnormal [facility] Urine glucose detectionOrder ed By: Velasquez Hill on 11-03-2024 Glucose Ql (U) 1000 mg/dl High Normal [facility] Urine leukocyte esterase det ection by dipstickOrdered By: Velasquez Hill on 11-03-2024 Leukocyte esterase Test strip Ql (U) 25 /ul High Negative [facility] Urine pHOrdered By: Velasquez calderon on 11-03-2024 pH (U) 6.0 [pH] 5.0 - 8.0 [facility] Urine sediment bacteria coun t by microscopy (number/high power field)Ordered By: Velasquez Hill on 11-03-2024 Bacteria LM.HPF (Urine sed) [#/Area] 1 /[HPF] None Seen [facility] Urine specific gravity measu rementOrdered By: Velasquez Hill on 11-03-2024 Specific gravity (U) [Rel density] 1.015 1.002-1.030 [facility] Urine urobilinogen measureme ntOrdered By: Velasquez Hill on 11-03-2024 Urobilinogen Ql (U) Normal mg/dl Normal [facility] Urobilinogen Ql (U)Ordered B y: Velasquez Sergio on 11-03-2024 Urine Urobilinogen Normal mg/dl Normal [facility] White blood cell (WBC) count Ordered By: Velasquez Hill on 11-03-2024 WBC (Bld) [#/Vol] 9.5 10*3/uL 4.4-11.[address] [facility] White blood cell countOrdere d By: Velasquez Hill on 11-03-2024 Urine WBC 25-50 SEEN /hpf 0-5 [facility] White blood cell count 25-50 SEEN /hpf 0-5 [facility] Pulmonary Visit Reporton Pulmonary Visit Report Normal [facility] 6 Minute Walk Teston 025 6 Minute Walk Test Normal [facility] MALBRon 10-04-2024 U Ratio Alb/Cre 454 mg/G High 0-30 [facility] Comment on above: Performed By: #### C MP, ADIFF, CBC, PBNP, GFR, ANEU #### [facility] [address] [place], [place] [address] Emergency Department Summary on 09-30-2024 Emergency Department Summary Normal [facility] Foot min 3 Viewson 5 Foot min 3 Views Normal [facility] Absolute lymphocyte countOrd ered By: Scott Berrios on 09-24-2024 Lymphocytes Auto (Unsp spec) [#/Vol] 2.28 10*3/uL 0.83-4.51 [facility] Absolute neutrophil countOrd ered By: Scott Berrios on 09-24-2024 Neutrophils (Bld) [#/Vol] 7.9 10*3/uL High 2.0-7.7 [facility] Automated lymphocyte count a s percentage of total leukocytesOrdered By: Scott Berrios on 09-24-2024 Lymphocytes/100 WBC Auto (Unsp spec) 20.7 % 19-41 [facility] Basophil percentageOrdered B y: Scott Berrios on 09-24-2024 Basophils/100 WBC (Bld) 0.6 % 0-1 [facility] CBC W/Diff, Automatedon 03-0 6-5 Absolute Lymph 2.28 X10 3/uL Normal 0.83-4.51 [facility] Comment on above: Performed By: #### L 100.0100 ####[facility] [address] [place], [address] Absolute Neut 7.9 X10 3/uL High 2.0-7.7 [facility] Comment on above: Performed By: #### L 100.0100 ####[facility] [address] [place], [address] Basophils/100 WBC (Bld) 0.6 % Normal 0-1 [facility] Comment on above: Performed By: #### L 100.0100 ####[facility] [address] [place], [address] Eosinophils/100 WBC (Bld) 2.0 % Normal 0-5 [facility] Comment on above: Performed By: #### L 100.0100 ####[facility] [address] [place], [address] Erythrocyte distribution width (RBC) [Ratio] 15.5 % High 11.6-14.6 [facility] Comment on above: Performed By: #### L 100.0100 ####[facility] [address] [place], [address] Hematocrit (Bld) [Volume fraction] 36.8 % Low 37-47 [facility] Comment on above: Performed By: #### L 100.0100 ####[facility] [address] [place], [address] Hemoglobin (Bld) [Mass/Vol] 11.7 g/dL Low 12.0-15.0 [facility] Comment on above: Performed By: #### L 100.0100 ####[facility] [address] [place], [address] IG% 1.100 High 0.0-0.9 [facility] Comment on above: Result Comment: IG% - Immature Granulocytes (promyelocytes, myelocytes andmetamyelocytes) > 1% indicates that a LEFT SHIFT is Present. Performed By: #### L 100.0100 ####[facility] [address] [place], [address] Lymphocytes/100 WBC (Bld) 20.7 % Normal 19-41 [facility] Comment on above: Performed By: #### L 100.0100 ####[facility] [address] [place], [address] MCH (RBC) [Entitic mass] 25.0 pg Low 27.0-32.0 [facility] Comment on above: Performed By: #### L 100.0100 ####[facility] [address] [place], [address] MCHC (RBC) [Mass/Vol] 31.8 g/dL Low 32-36 [facility] Comment on above: Performed By: #### L 100.0100 ####[facility] [address] [place], [address] MCV (RBC) [Entitic vol] 78.6 fL Low 81-99 [facility] Comment on above: Performed By: #### L 100.0100 ####[facility] [address] [place], [address] Monocytes/100 WBC (Bld) 4.4 % Normal 0-10 [facility] Comment on above: Performed By: #### L 100.0100 ####[facility] [address] [place], [address] Neutrophils/100 WBC (Bld) 71.2 % High 47-70 [facility] Comment on above: Performed By: #### L 100.0100 ####[facility] [address] [place], [address] Nucleated RBC (Bld) [#/Vol] 0 10*3/uL Normal 0-5 [facility] Comment on above: Performed By: #### L 100.0100 ####[facility] [address] [place], [address] Platelet mean volume (Bld) [Entitic vol] 10.4 fL Normal 6.2-12.0 [facility] Comment on above: Performed By: #### L 100.0100 ####[facility] [address] [place], [address] Platelets (Bld) [#/Vol] 261 10*3/uL Normal 150-450 [facility] Comment on above: Performed By: #### L 100.0100 ####[facility] [address] [place], [address] RBC (Bld) [#/Vol] 4.68 10*6/uL Normal 4.2-5.4 [facility] Comment on above: Performed By: #### L 100.0100 ####[facility] [address] [place], [address] RDW SD 42.7 fl Normal 35.1-43.9 [facility] Comment on above: Performed By: #### L 100.0100 ####[facility] [address] [place], [address] WBC (Bld) [#/Vol] 11.0 10*3/uL Normal 4.4-11.0 [facility] Comment on above: Performed By: #### L 100.0100 ####[facility] [address] [place], [address] Endocrinology Visit Reporton 09-24-2024 Endocrinology Visit Report Normal [facility] Eosinophil percentageOrdered By: Scott Berrios on 09-24-2024 Eosinophils/100 WBC (Bld) 2.0 % 0-5 [facility] Erythrocyte distribution wid th ratioOrdered By: Scott Berrios on 09-24-2024 Erythrocyte distribution width (RBC) [Ratio] 15.5 % High 11.6-14.6 [facility] Erythrocyte distribution wid th standard deviationOrdered By: Scott Berrios on 09-24-2024 Erythrocyte distribution width (RBC) [Entitic vol] 42.7 fL 35.1-43.9 [facility] Erythrocyte distribution width (RBC) [Ratio] 42.7 fl 35.1-43.9 [facility] Hematocrit Auto (Bld) [Volum e fraction]Ordered By: Scott Berrios on 09-24-2024 Hematocrit (Bld) [Volume fraction] 36.8 % Low 37-47 [facility] Hemoglobin measurementOrdere d By: Scott Berrios on 09-24-2024 Hemoglobin (Bld) [Mass/Vol] 11.7 g/dL Low 12.0-15.0 [facility] Immature granulocytes/100 WB C Auto (Bld)Ordered By: Scott Berrios on 09-24-2024 Immature granulocytes/100 WBC (Bld) 1.100 % High 0.0-0.9 [facility] Comment on above: IG% - Immature Granu locytes (promyelocytes, myelocytes and metamyelocytes) > 1% indicates that a LEFT SHIFT is Present. Laboratory - Hematology and Cell countsOrdered By: Jaziel Drake on 09-24-2024 HbA1c (Bld) [Mass fraction] 11.4 % High 4.2-6.3 [facility] Lymphocytes Auto (Unsp spec) [#/Vol]Ordered By: Scott Berrios on 09-24-2024 Lymphocytes (Bld) [#/Vol] 2.28 10*3/uL 0.83-4.51 [facility] Lymphocytes/100 WBC Auto (Un sp spec)Ordered By: Scott Berrios on 09-24-2024 Lymphocytes/100 WBC (Bld) 20.7 % 19-41 [facility] MCV (mean corpuscular volume ) determinationOrdered By: Scott Berrios on 09-24-2024 MCV (RBC) [Entitic vol] 78.6 fL Low 81-99 [facility] Mean corpuscular hemoglobin (MCH) determinationOrdered By: Scott Berrios on 09-24-2024 MCH (RBC) [Entitic mass] 25.0 pg Low 27.0-32.0 [facility] Mean corpuscular hemoglobin concentration (MCHC) determinationOrdered By: Scott Berrios on 09-24-2024 MCHC (RBC) [Mass/Vol] 31.8 g/dL Low 32-36 [facility] Mean platelet volume determi nationOrdered By: Scott Berrios on 09-24-2024 Platelet mean volume (Bld) [Entitic vol] 10.4 fL 6.2-12.0 [facility] Monocyte percentageOrdered B y: Scott Berrios on 09-24-2024 Monocytes/100 WBC (Bld) 4.4 % 0-10 [facility] Neutrophil percentageOrdered By: Scott Berrios on 09-24-2024 Neutrophils/100 WBC (Bld) 71.2 % High 47-70 [facility] Nucleated red blood cell per centageOrdered By: Scott Berrios on 09-24-2024 Nucleated RBC/100 WBC (Bld) [Ratio] 0 % 0-5 [facility] Platelet countOrdered By: Sandrita Berrios on 09-24-2024 Platelets (Bld) [#/Vol] 261 10*3/uL 150-450 [facility] RBC Auto (Bld) [#/Vol]Ordere d By: Scott Berrios on 09-24-2024 RBC (Bld) [#/Vol] 4.68 10*6/uL 4.2-5.4 [facility] White blood cell (WBC) count Ordered By: Scott Berrios on 09-24-2024 WBC (Bld) [#/Vol] 11.0 10*3/uL 4.4-11.0 [facility] MA MAMMOGRAM SCREENING BILAT ERAL W/TOMOon 09-22-2024 MA MAMMOGRAM SCREENING BILATERAL W/JORGE ALBERTO ORIGINAL FROM: [address] [place], [place] [address] PROCEDURE FOR: [address] [place] [address] Home: PID#: [id number] Exam#: [id number] : 1965 Age: 58 TO: VERO ORTEZ APRN, CNP [facility] [address] [place], [place] [address] EXAMINATION: SCREENING DIGITAL BILATERAL MAMMOGRAM WITH TOMOSYNTHESIS, [...] Continued screening with annual mammograms is recommended. [facility], generated with the history [...] addition to annual mammographic screening per the [employer]. BIRADS: BI-RADS: 2: Benign RECALL: 1 year screening RECALL TYPE: mammo LETTER SENT: Normal BI-RADS 1 and 2 Interpreted by: Amadou Saldana MD Preliminary Report By: Amadou Saldana MD Electronically signed By Amadou Saldana MD Dictated Date: 09/22/2024 5:03:08 PM Prelim Date: 09/22/2024 5:05:43 PM Sign Date: 09/22/2024 5:05:43 PM Ordering Provider: VERO ORTEZ School Office Manager: MARISSA MORRISON RT (R)(M) letter sent: Normal BI-RADS 1 and 2 Mammogram BI-RADS: 2 Benign Normal [facility] Associate Professor Of Medicine Cytology Reporton 2024 Associate Professor Of Medicine Cytology Report . Pathology Reports Accession: Collected Date/Time: Received Date/Time: Pathologist: [id number] 09/02/2024 13:46 EST 09/02/2024 18:00 EST Associate Professor Of Medicine Cytology Report SPECIMEN: Specimen Description: Liquid Prep [...] and evaluated with the assistance of the [employer] ThinPrep Test Imaging System. Pathology Reports Accession: Collected Date/Time: Received Date/Time: Pathologist: [id number] 09/02/2024 13:46 EST 09/02/2024 18:00 EST Verified by Pathology report verified by [facility] Screened by: [place] Electronically signed by Rosy MARS (ASCP) Sign-Out Date: 09/09/2024 15:21 Performing Lab: [facility], [address] [place] [address] Pathology Dept Disclaimer The Pap test is a screening test for cervical cancer. As evidenced by published data, it is subject to both inherent false negative and false positive results. Your patient's results should be interpreted in context with pertinent clinical history including gynecological examination. Normal [facility] HPVon 09-04-2024 HPV Interp Normal See Interp HPVN [facility] Comment on above: Order Comment: Order placed by AP_HPV_ORDER rule from [id number] Result Comment: High Risk HPV Typing: NEGATIVE [...] MP, ADIFF, CBC, PBNP, GFR, ANEU #### [address] [place], [place] [address] HPV Source Cervix Normal [facility] Comment on above: Order Comment: Order placed by AP_HPV_ORDER rule from [id number] Performed By: #### C MP, ADIFF, CBC, PBNP, GFR, ANEU #### [address] [place], [place] [address] Pulmonary Visit Reporton Pulmonary Visit Report Normal [facility] CTPCRon 09-03-2024 C. trachomatis Interp Normal See CT Interp N [facility] Comment on above: Result Comment: C. t rachomatis DNA not detected. Specimen is presumptive negative for C. trachomatis. A negative result does not preclude C. trachomatis infection because results depend on adequate specimen collection, absence of inhibitors, and sufficient DNA to be detected. See CT Interp N Performed By: #### C TPCR, NGPCR1 #### [facility] [address] [place] [address] C.trachomatis PCR Negative Normal Negative [facility] Comment on above: Result Comment: Mole brienar (PCR) assay performed on the [employer] Suzie 4800 system. Performed By: #### C TPCR, NGPCR1 #### [address] [address] Chlam Source Urine Normal [facility] Comment on above: Performed By: #### C TPCR, NGPCR1 #### [address] [address] GLUCOSE POCon 09-03-2024 Glucose [Mass/Vol] 336 mg/dL High 70 - 99 mg/dL [facility] Interpretation and review of laboratory results [facility] POC Sample Type CAPBL [facility] Test performed at ad dress of the patient encounter. [facility] Glucose [Mass/Vol] 324 mg/dL High 70 - 99 mg/dL [facility] Interpretation and review of laboratory results Abnormal [facility] POC Sample Type [facility] Test performed at ad dress of the patient encounter. [facility] Glucose [Mass/Vol] 371 mg/dL High 70 - 99 mg/dL [facility] Interpretation and review of laboratory results Abnormal [facility] POC Sample Type VENO [facility] Test performed at ad dress of the patient encounter. [facility] INTERVENTIONAL UPPER ENDOSCO PYon 09-03-2024 [facility] Gastroenterology Patient Name: Leroy Tyler Procedure Date: 09/03/2024 12:43 PM Date of : 1965 Admit Type: Outpatient Age: 58 Room: EUS Proc Room 01 Gender: Female Note Status: Finalized Attending MD: Velasquez Berry MD, [id number] Procedure: Upper GI endoscopy Indications: Follow-up of [...] tissue (more content not included)... LAB, [facility] Radiology Study observation (narrative) [facility] [id number] 09-03-2024 GC PCR Source Urine Normal [facility] Comment on above: Performed By: #### C TPCR, NGPCR1 #### [address] [address] N. gonorrhoeae (PCR) Negative Normal Negative [facility] Comment on above: Result Comment: Mole cular (PCR) assay performed on the [employer] Suzie 4800 System. Performed By: #### C TPCR, NGPCR1 #### [place] [address] N. gonorrhoeae Interp Normal See NG Interp N [facility] Comment on above: Result Comment: N. g onorrhoeae DNA not detected. Specimen is presumptive negative for N. gonorrhoeae. A negative result does not preclude Neisseria gonorrhoeae infection because results depend on adequate specimen collection, absence of inhibitors, and sufficient DNA to be detected. See NG Interp N Performed By: #### C TPCR, NGPCR1 #### [place] [address] SURG PATH REQUESTon 09-03-19 Case Report Normal [facility] Comment on above: Result Comment: Surg ical Pathology Report Case: [id number] Authorizing Provider: Velasquez Berry MD Collected: 09/03/2024 01:18 PM Ordering Location: [facility] Endoscopy Received: 09/03/2024 02:37 PM Pathologist: ALINA Hart Specimens: A) - TISSUE, antral wall at 50 biopsy, prior EMR site B) - TISSUE, gastric polyps x 6, hx of neuroendocrine tumor Performed By: #### P CA #### [facility] (DEFAULT) [address] [place] [address] Clinical History Neuroendocrine tumor [D3A.8]. Medical History: Diabetes mellitus. History of cancer. GERD (gastroesophageal reflux disease). Arthritis. Anxiety. Hyperlipidemia. Renal disease. Hyperthyroidism. Cirrhosis of liver. Obstructive sleep apnea. Liver disease. Normal [facility] Comment on above: Performed By: #### P CA #### [facility] (DEFAULT) [address] [place] [address] Gross Description [facility] Comment on above: Result Comment: [...] aggregate of fragments Lab Use Only: JobID [id number] Grosser for this case was: Abram Hilton Performed By: #### P CA #### [facility] (DEFAULT) [address] [place] [address] Microscopic Description [facility] Comment on above: Result Comment: A mi croscopic examination was performed. All controls show appropriate reactivity. All immunohistochemistry (IHC), in situ hybridization (ANNA), and histochemical tests were developed by and are performed at the [facility], Histology and IHC Lab, [address] [place] [address], [place] [address]. All Immunofluorescent (IF) tests were developed by and are performed at the [facility], Renal Division, [address] [place] [address]. All tests reported here, except for PD-L1, have not been cleared by or approved by the [place] Food and Drug Administration (FDA). The laboratory is regulated under CLIA as qualified to perform high-complexity testing. The tests are used for clinical purposes. They should not be regarded as investigational or for research. Performed By: #### P CA #### [facility] (DEFAULT) [address] [place] [address] Pathologic Diagnosis [facility] Comment on above: Result Comment: A. S [...] metaplastic gastritis (AMAG). Clinical correlation is recommended. Ring Sorter slides were reviewed at the daily GI pathology consensus conference and those present in the meeting agreed with the above interpretation. at 1448 EST Performed By: #### P CA #### [facility] (DEFAULT) [address] [place] [address] Professional Interpretation Performed at: [facility] Comment on above: Result Comment: [facility] For Immediate Release to Patient's [facility] Yes [id number] Performed By: #### P CA #### [facility] (DEFAULT) [address] [place] [address] LABORATORYOrdered By: Robby Vega on 09-02-2024 Albumin [...] 09-02-2024 U Creatinine 25.2 mg/dL Normal [facility] Comment on above: Performed By: #### C MP, ADIFF, CBC, PBNP, GFR, ANEU #### [address] [place], [place] [address] U Microalb 114.3 mg/L Normal [facility] Comment on above: Performed By: #### C MP, ADIFF, CBC, PBNP, GFR, ANEU #### [facility] [address] [place], [place] [address] No Panel InformationOrdered By: Zion Bowman on 09-02-2024 Affirm Pathogens DNA Direct Probe Trichomonas vaginalis DNA Probe Negative Gardnerella vaginalis DNA Probe Negative Judie species DNA Probe Positive [facility] CBC AND ELECTRONIC DIFFon Basophils (Bld) [#/Vol] 0.05 10*3/uL Normal 0.00-0.15 [facility] Comment on above: Performed By: #### L [id number] #### [facility] (DEFAULT) [address] [place] [address] Basophils/100 WBC (Bld) 0.5 % Normal [facility] Comment on above: Performed By: #### L [id number] #### [facility] (DEFAULT) [address] [place] [address] DIFF STATUS Electronic Differential Normal [facility] Comment on above: Performed By: #### L [id number] #### [facility] (DEFAULT) [address] [place] [address] Eosinophils (Bld) [#/Vol] 0.19 10*3/uL Normal 0.00-0.42 [facility] Comment on above: Performed By: #### L [id number] #### [facility] (DEFAULT) [address] [address] Eosinophils/100 WBC (Bld) 1.9 % Normal [facility] Comment on above: Performed By: #### L [id number] #### [facility] (DEFAULT) [address] [address] Hematocrit (Bld) [Volume fraction] 35.1 % Normal 34.9-44.3 [facility] Comment on above: Performed By: #### L [id number] #### [facility] (DEFAULT) [address] [place] [address] Hemoglobin (Bld) [Mass/Vol] 11.2 g/dL Low 11.4-15.2 [facility] Comment on above: Performed By: #### L [id number] #### [facility] (DEFAULT) [address] [address] Immature Grans % 0.8 % Normal [facility] Comment on above: Performed By: #### L [id number] #### [facility] (DEFAULT) [address] [address] Immature Grans Absolute 0.08 K/uL Normal <=0.08 [facility] Comment on above: Performed By: #### L [id number] #### [facility] (DEFAULT) [address] [address] Lymphocytes (Bld) [#/Vol] 2.35 10*3/uL Normal 1.16-3.51 [facility] Comment on above: Performed By: #### L AB980 #### [facility] (DEFAULT) [address] [address] Lymphocytes/100 WBC (Bld) 23.3 % Normal [facility] Comment on above: Performed By: #### L AB980 #### [facility] (DEFAULT) [address] [address] MCV (RBC) [Entitic vol] 76.3 fL Low 79.6-97.7 [facility] Comment on above: Performed By: #### L AB980 #### [facility] (DEFAULT) [address] [address] Mean Cell Hgb 24.3 pg Low 25.9-33.9 [facility] Comment on above: Performed By: #### L AB980 #### [facility] (DEFAULT) [address] [address] Mean Cell Hgb Conc 31.9 g/dL Normal 31.4-35.9 [facility] Comment on above: Performed By: #### L AB980 #### [facility] (DEFAULT) [address] [address] Monocytes (Bld) [#/Vol] 0.56 10*3/uL Normal 0.22-0.87 [facility] Comment on above: Performed By: #### L AB980 #### [facility] (DEFAULT) [address] [address] Monocytes/100 WBC (Bld) 5.5 % Normal [facility] Comment on above: Performed By: #### L [id number] #### [facility] (DEFAULT) [address] [place] [address] Nucleated RBC 0.0 /100 WBC Normal <=0.2 [facility] Comment on above: Performed By: #### L [id number] #### [facility] (DEFAULT) [address] [place] [address] Platelet mean volume (Bld) [Entitic vol] 9.8 fL Normal 8.5-12.2 [facility] Comment on above: Performed By: #### L [id number] #### [facility] (DEFAULT) [address] [place] [address] Platelets (Bld) [#/Vol] 215 10*3/uL Normal 150-393 [facility] Comment on above: Performed By: #### L AB980 #### [facility] (DEFAULT) [address] [place] [address] RBC (Bld) [#/Vol] 4.60 10*6/uL Normal 3.91-5.04 [facility] Comment on above: Performed By: #### L [id number] #### [facility] (DEFAULT) [address] [place] [address] RBC Distribution 16.2 % High 10.8-14.9 [facility] Comment on above: Performed By: #### L [id number] #### [facility] (DEFAULT) [address] [place] [address] Segs + Bands Auto 68.0 % Normal [facility] Comment on above: Performed By: #### L [id number] #### [facility] (DEFAULT) [address] [place] [address] Segs + Bands,Absolute Auto 6.87 K/uL Normal 1.64-7.28 [facility] Comment on above: Performed By: #### L [id number] #### [facility] (DEFAULT) [address] [place] [address] WBC (Bld) [#/Vol] 10.10 10*3/uL Normal 3.99-11.19 [facility] Comment on above: Performed By: #### L [id number] #### [facility] (DEFAULT) [address] [place] [address] FERRITINon 08-27-2024 Ferritin [Mass/Vol] 38.2 ng/mL Normal 7.3-270.7 [facility] Comment on above: Performed By: #### F ERIB #### [facility] (DEFAULT) [address] [place] [address] IRON/IRON BINDING/TRANSFERRI Non 08-27-2024 Iron [Mass/Vol] 32 ug/dL Low 40-174 [facility] Comment on above: Performed By: #### C MPN, LDO #### [facility] (DEFAULT) [address] [place] [address] Iron Saturation 10 % Low 20-55 [facility] Comment on above: Performed By: #### C MPN, LDO #### [facility] (DEFAULT) [address] [place] [address] Total Iron Binding Capacity 311 mcg/dL Normal 250-425 [facility] Comment on above: Performed By: #### C MPN, LDO #### [facility] (DEFAULT) [address] [place] [address] Transferrin [Mass/Vol] 249 mg/dL Normal 200-400 [facility] Comment on above: Performed By: #### C MPN, LDO #### [facility] (DEFAULT) [address] [place] [address] Laboratory - Chemistry and C hemistry - challengeon 08-27-2024 Iron [Mass/Vol] 32 ug/dL Low [facility] Iron binding capacity [Mass/Vol] 311 [facility] Iron saturation [Mass fraction] 10 % Low 20 - 55 % [facility] Transferrin [Mass/Vol] 249 mg/dL 200 - 400 mg/dL [facility] Ferritin [Mass/Vol] 38.2 ng/mL 7.3 - 27 0.7 ng/mL [facility] No Panel Informationon 08-27 Interpretation and review of laboratory results Abnormal [facility] Interpretation and review of laboratory results Normal [facility] CT ABDOMEN/PELVIS WITH AND W ITHOUT [...] error, please notify the sender immediately at [phone] and permanently delete the original report and destroy any copies or printouts. Normal [facility] ANTI PARIETAL ANTIBODYon Parietal Cell Antibody Positive Abnormal Negative [facility] Comment on above: Performed By: #### P CA #### [facility] (DEFAULT) [address] [address] Quantitative Parietal Cell Ab 1:160 Abnormal (none) [facility] Comment on above: Performed By: #### P CA #### [facility] (DEFAULT) [address] [address] CALCITONINon 08-14-2024 Calcitonin <5.00 Normal <=9.53 [facility] Comment on above: Result Comment: This test was performed on the [employer] IM Immunoassay platform by Siem[employer] which is a two-site sandwich chemiluminescent immunoassay. It is important to note that assays using different manufacturers and/or methods may not be comparable. Performed By: #### P CA #### [facility] (DEFAULT) [address] [place] [address] CBC AND ELECTRONIC DIFFon Abs Baso Auto < Normal 0.00-0.15 [facility] Comment on above: Performed By: #### C MPN, LDO #### [facility] (DEFAULT) [address] [place] [address] Basophils/100 WBC (Bld) 0.4 % Normal [facility] Comment on above: Performed By: #### C MPN, LDO #### [facility] (DEFAULT) [address] [place] [address] DIFF STATUS Electronic Differential Normal [facility] Comment on above: Performed By: #### C MPN, LDO #### [facility] (DEFAULT) [address] [place] [address] Eosinophils (Bld) [#/Vol] 0.17 10*3/uL Normal 0.00-0.42 [facility] Comment on above: Performed By: #### C MPN, LDO #### [facility] (DEFAULT) [address] [place] [address] Eosinophils/100 WBC (Bld) 2.2 % Normal [facility] Comment on above: Performed By: #### C MPN, LDO #### [facility] (DEFAULT) [address] [place] [address] Hematocrit (Bld) [Volume fraction] 35.8 % Normal 34.9-44.3 [facility] Comment on above: Performed By: #### C MPN, LDO #### [facility] (DEFAULT) [address] [place] [address] Hemoglobin (Bld) [Mass/Vol] 10.5 g/dL Low 11.4-15.2 [facility] Comment on above: Performed By: #### C MPN, LDO #### [facility] (DEFAULT) [address] [place] [address] Immature Grans % 0.9 % Normal [facility] Comment on above: Performed By: #### C MPN, LDO #### [facility] (DEFAULT) [address] [place] [address] Immature Grans Absolute 0.07 K/uL Normal <=0.08 [facility] Comment on above: Performed By: #### C MPN, LDO #### [facility] (DEFAULT) [address] [place] [address] Lymphocytes (Bld) [#/Vol] 2.51 10*3/uL Normal 1.16-3.51 [facility] Comment on above: Performed By: #### C MPN, LDO #### [facility] (DEFAULT) [address] [place] [address] Lymphocytes/100 WBC (Bld) 33.2 % Normal [facility] Comment on above: Performed By: #### C MPN, LDO #### [facility] (DEFAULT) [address] [place] [address] MCV (RBC) [Entitic vol] 79.4 fL Low 79.6-97.7 [facility] Comment on above: Performed By: #### C MPN, LDO #### [facility] (DEFAULT) [address] [address] Mean Cell Hgb 23.3 pg Low 25.9-33.9 [facility] Comment on above: Performed By: #### C MPN, LDO #### [facility] (DEFAULT) [address] [address] Mean Cell Hgb Conc 29.3 g/dL Low 31.4-35.9 [facility] Comment on above: Performed By: #### C MPN, LDO #### [facility] (DEFAULT) [address] [place] [address] Monocytes (Bld) [#/Vol] 0.43 10*3/uL Normal 0.22-0.87 [facility] Comment on above: Performed By: #### C MPN, LDO #### [facility] (DEFAULT) [address] [address] Monocytes/100 WBC (Bld) 5.7 % Normal [facility] Comment on above: Performed By: #### C MPN, LDO #### [facility] (DEFAULT) [address] [place] [address] Nucleated RBC 0.0 /100 WBC Normal <=0.2 [facility] Comment on above: Performed By: #### C MPN, LDO #### [facility] (DEFAULT) [address] [place] [address] Platelet mean volume (Bld) [Entitic vol] 10.6 fL Normal 8.5-12.2 [facility] Comment on above: Performed By: #### C MPN, LDO #### [facility] (DEFAULT) [address] [place] [address] Platelets (Bld) [#/Vol] 223 10*3/uL Normal 150-393 [facility] Comment on above: Performed By: #### C MPN, LDO #### [facility] (DEFAULT) [address] [place] [address] RBC (Bld) [#/Vol] 4.51 10*6/uL Normal 3.91-5.04 [facility] Comment on above: Performed By: #### C MPN, LDO #### [facility] (DEFAULT) [address] [place] [address] RBC Distribution 16.1 % High 10.8-14.9 [facility] Comment on above: Performed By: #### C MPN, LDO #### [facility] (DEFAULT) [address] [place] [address] Segs + Bands Auto 57.6 % Normal [facility] Comment on above: Performed By: #### C MPN, LDO #### [facility] (DEFAULT) [address] [place] [address] Segs + Bands,Absolute Auto 4.36 K/uL Normal 1.64-7.28 [facility] Comment on above: Performed By: #### C MPN, LDO #### [facility] (DEFAULT) [address] [place] [address] WBC (Bld) [#/Vol] 7.57 10*3/uL Normal 3.99-11.19 [facility] Comment on above: Performed By: #### C MPN, LDO #### [facility] (DEFAULT) [address] [address] CHROMOGRANIN Aon 08-14-2024 Chromogranin A 1084 ng/mL High <93 [facility] Comment on above: Result Comment: Impa ired renal or hepatic function or treatment with proton pump inhibitors may result in artifactual elevations of Chromogranin A. ADDITIONAL INFORMATION The testing method is a homogeneous time-resolved immunofluorescent assay manufactured by [employer] and performed on the [employer] Kryptor Compact Plus. Values obtained with different [...] examination and other findings. Test Performed by: [facility] [address] [place] [address] Manufacturing Sales Representative: Juana Recio Ph.D.; CLIA# [id number] Performed By: #### C MPN, LDO #### [facility] (DEFAULT) [address] [address] COMPREHENSIVE METABOLIC PANE Hakan 08-14-2024 Albumin [Mass/Vol] 3.5 g/dL Normal 3.5-5.0 [facility] Comment on above: Performed By: #### C MPN, LDO #### [facility] (DEFAULT) [address] [address] ALP [Catalytic activity/Vol] 114 U/L Normal 32-126 [facility] Comment on above: Performed By: #### C MPN, LDO #### [facility] (DEFAULT) [address] [address] ALT [Catalytic activity/Vol] 38 U/L Normal 9-48 [facility] Comment on above: Performed By: #### C MPN, LDO #### [facility] (DEFAULT) [address] [place] [address] Anion gap [Moles/Vol] 11 mmol/L Normal 7-17 [facility] Comment on above: Performed By: #### C MPN, LDO #### [facility] (DEFAULT) [address] [place] [address] AST [Catalytic activity/Vol] 54 U/L High 10-39 [facility] Comment on above: Performed By: #### C MPN, LDO #### [facility] (DEFAULT) [address] [place] [address] Bilirubin [Mass/Vol] 0.5 mg/dL Normal <1.5 [facility] Comment on above: Performed By: #### C MPN, LDO #### [facility] (DEFAULT) [address] [place] [address] Calcium [Mass/Vol] 9.2 mg/dL Normal 8.6-10.5 [facility] Comment on above: Performed By: #### C MPN, LDO #### [facility] (DEFAULT) [address] [place] [address] Chloride [Moles/Vol] 95 mmol/L Low 98-108 [facility] Comment on above: Performed By: #### C MPN, LDO #### [facility] (DEFAULT) [address] [place] [address] CO2 [Moles/Vol] 31 mmol/L Normal 21-31 [facility] Comment on above: Performed By: #### C MPN, LDO #### [facility] (DEFAULT) [address] [place] [address] Creatinine [Mass/Vol] 0.59 mg/dL Normal 0.50-1.20 [facility] Comment on above: Performed By: #### C MPN, LDO #### [facility] (DEFAULT) [address] [place] [address] eGFR, CKD-EPI, Female > Normal >=60 [facility] Comment on above: Result Comment: Repo rted eGFR is based on the CKD-EPI 2020 equation using creatinine, age, and sex. Performed By: #### C MPN, LDO #### [facility] (DEFAULT) [address] [place] [address] Glucose [Mass/Vol] 210 mg/dL High 70-99 [facility] Comment on above: Performed By: #### C MPN, LDO #### [facility] (DEFAULT) [address] [place] [address] Osmolality [Osmolality] 287 mosm/kg Normal 278-305 [facility] Comment on above: Performed By: #### C MPN, LDO #### [facility] (DEFAULT) [address] [place] [address] Potassium [Moles/Vol] 4.2 mmol/L Normal 3.5-5.0 [facility] Comment on above: Performed By: #### C MPN, LDO #### [facility] (DEFAULT) [address] [place] [address] Protein [Mass/Vol] 8.1 g/dL Normal 6.4-8.3 [facility] Comment on above: Performed By: #### C MPN, LDO #### [facility] (DEFAULT) [address] [place] [address] Sodium [Moles/Vol] 133 mmol/L Low 135-145 [facility] Comment on above: Performed By: #### C MPN, LDO #### [facility] (DEFAULT) [address] [place] [address] Urea nitrogen [Mass/Vol] 12 mg/dL Normal 7-25 [facility] Comment on above: Performed By: #### C MPN, LDO #### [facility] (DEFAULT) [address] [address] Urea nitrogen/Creatinine [Mass ratio] 20 mg/mg Normal [facility] Comment on above: Performed By: #### C NAHED, LDO #### [facility] (DEFAULT) [address] [address] GASTRIN - NON-STIMULATEDon 0 08-14-2024 Gastrin 537 pg/mL High [facility] Comment on above: Result Comment: REFERENCE VALUE <100 Reference ranges valid for >= 8 hour fast. Test Performed by: [place] [address] Manufacturing Sales Representative: Juana Recio Ph.D.; CLIA# [id number] Performed By: #### C NAHED, LDO #### [facility] (DEFAULT) [address] [address] INTRINSIC FACTOR ANTIBODYon 08-14-2024 INTRINSIC FACTOR BLOCK AB COMMNT SEE COMMENTS Normal [facility] Comment on above: Result Comment: Intr insic Factor Blocking Antibody (IFBA) antibodies are absent in approximately 50% of individuals with pernicious anemia (PA). The absence of elevated IFBA antibodies does not rule out the presence of PA; further studies such as gastrin testing may be indicated. Test Performed by: [place] [address] Manufacturing Sales Representative: Juana Recio Ph.D.; CLIA# [id number] Performed By: #### C MPN, LDO #### [facility] (DEFAULT) [address] [address] Intrinsic Factor Blocking Antibody Negative Normal Negative [facility] Comment on above: Performed By: #### C MPN, LDO #### [facility] (DEFAULT) [address] [address] LACTATE DEHYDROGENASEon 07-23 LD Total 167 U/L Normal 100-190 [facility] Comment on above: Performed By: #### C NAHED, JOANO #### [facility] (DEFAULT) [address] [address] METHYLMALONIC ACIDon 025 METHYLMALONIC ACID 0.34 nmol/mL Normal <=0.40 [facility] Comment on above: Result Comment: ADDITIONAL INFORMATION This test was developed and its performance characteristics determined by [facility] in a manner consistent with CLIA requirements. This test has not been cleared or approved by the U.S. Food and Drug Administration. Test Performed by: [facility] [place] [address] Manufacturing Sales Representative: Juana Recio Ph.D.; CLIA# [id number] Performed By: #### Y MMA #### [facility] (DEFAULT) [address] [address] PANCREATIC POLYPEPTIDEon Pancreatic Polypeptide 538 pg/mL High <291 [facility] Comment on above: Result Comment: ADDITIONAL INFORMATION This test was developed and its performance characteristics determined by [facility] in a manner consistent with CLIA requirements. This test has not been cleared or approved by the U.S. Food and Drug Administration. Test Performed by: [facility] [address] [place] [address] Manufacturing Sales Representative: Juana Recio Ph.D.; CLIA# [id number] Performed By: #### P CA #### [facility] (DEFAULT) [address] [address] PTH INTACTon 08-14-2024 Intact PTH 19.6 pg/mL Normal 14.0-72.0 [facility] Comment on above: Performed By: #### Char DOCKERY, JOANO #### [facility] (DEFAULT) [address] [place] [address] VITAMIN B12on 08-14-2024 Cobalamin (Vitamin B12) [Mass/Vol] 296 pg/mL Normal 211-911 [facility] Comment on above: Result Comment: Test ing of Methylmalonic Acid and Intrinsic Factor Blocking Antibody are recommended if clinical suspicion for pernicious anemia due to B12 deficiency is high for patients with intermediate B12 levels (211 to 400 pg/mL) to rule out spurious heterophile antibodies. Performed By: #### C MPN, LDO #### [facility] (DEFAULT) [address] [place] [address] NUC PET HEAD TO THIGHon NUC PET [...] evidence of other tracer avid lesions. Normal [facility] PT Skull base to mid-thighon 07-30-2024 IMPRESSION: [...] No evidence of other tracer avid lesions. [facility] Rad[facility] Study observation (narrative) [facility] PT Skull base to mid-thighOr dered By: Mack Bailey on 07-30-2024 [facility] Work Phone: Bedside Glucoseon 07-29-2024 FINGERSTICK GLU 367 mg/dL High 74-106 [facility] Comment on above: Result Comment: ESPERANZA GEMENT OF PATIENT CARE PER NURSING PROTOCOL Performed By: #### L 501.080 ####[facility] [address] [place], [address] FINGERSTICK GLU 370 mg/dL High 74-106 [facility] Comment on above: Result Comment: ESPERANZA GEMENT OF PATIENT CARE PER NURSING PROTOCOL Performed By: #### L 501.080 ####[facility] [address] [place], [address] Colonoscopy Reporton 025 Colonoscopy Report Normal [facility] Glucose [facility] at [facility] deOrdered By: Brayan Cast on 07-29-2024 Bedside Glucose (Misc Panel) 367 mg/dL High 74-106 [facility] Comment on above: MANAGEMENT OF PATIEN T CARE PER NURSING PROTOCOL MR/POSTOP.ANEon 07-29-2024 MR/POSTOP.ANE Normal [facility] MR/[id number] 07-29-2024 MR/POSTOPAN2 Normal [facility] Surgery Specimen Level Aicha 07-29-2024 Surgery Specimen Level IV Normal [facility] Comment on above: Performed By: #### P SUIV ####[facility] [address] [place], [address] Gastroenterology Visit Repor ton 07-28-2024 Gastroenterology Visit Report Normal [facility] MR/PAT.ANEon 07-28-2024 MR/PAT.ANE Normal [facility] ABD Limited w/ Elastographyo n 07-24-2024 ABD Limited w/ Elastography Normal [facility] GLUCOSE POCon 06-23-2024 Glucose [Mass/Vol] 281 mg/dL High 70 - 99 mg/dL [facility] Interpretation and review of laboratory results Abnormal [facility] POC Sample Type V[facility] Test performed at ad dress of the patient encounter. [facility] Miscellaneous Lab Procedureo n 06-23-2024 MISC LAB TEST Normal [facility] Comment on above: Order Comment: SER/R [id number] RDL SER/RF Result Comment: TEST RESULTS LIMITSAutoimmune [...] 80 Strong Positive: >80 TESTING PERFORMED AT [facility]. ORIGINAL REPORT ON FILE IN LAB CONTAINS ADDITIONAL TEST SITE INFORMATION. Performed By: #### L 501.2450, L801.1541, L3300.1800, L300.3900, L3410.2350, L501.6710, L801.1543, L500.4050, L3100.5440, L500.4100, L100.0100 ####[facility] [address] [place], [address] SURG PATH REQUESTon 06-23-20 24 Addendum Normal [facility] Comment on above: Result Comment: This addendum is issued to report on the chromogranin and synaptophysin stains performed on block D1. Neuroendocrine markers chromogranin and synaptophysin show focal linear neuroendocrine cell hyperplasia. All controls show appropriate reactivity. All immunohistochemistry, in situ hybridization, and histochemical tests were developed by and are performed at the [facility], [address] [place] [address]. All tests reported here, except those addressing [...] PM Performed By: #### S URGP #### [facility] (DEFAULT) [address] [place] [address] Case Report Normal [facility] Comment on above: Result Comment: Surg ical Pathology Report Case: [id number] Authorizing Provider: Blas eMrrill MD Collected: 06/23/2024 01:48 PM Ordering Location: [facility] Received: 06/23/2024 04:41 PM Pathologist: Mohit Almanzar MD Specimens: A) - TISSUE BIOPSY, FNA Peripancreatic LN B) - TISSUE, previous EMR site midbody C) - STOMACH, distal stomach polyps x2 D) - STOMACH, gastric cardia polyp Performed By: #### S URGP #### [facility] (DEFAULT) [address] [place] [address] Clinical History Neuroendocrine tumor 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 Medical History: Diabetes mellitus. History of cancer. Gastroesophageal reflux disease. Renal disease. Hyperthyroidism. Cirrhosis of liver. Arthritis. Anxiety. Hyperlipidemia. Obstructive sleep apnea. Liver disease. Normal [facility] Comment on above: Performed By: #### S URGP #### [facility] (DEFAULT) [address] [place] [address] Gross Description Normal [facility] Comment on above: Result Comment: The [...] tissue. TE 1 Lab Use Only: JobID [id number] Grosser for this case was: Justice Trejo Performed By: #### S URGP #### [facility] (DEFAULT) [address] [place] [address] Microscopic Description Normal [facility] Comment on above: Result Comment: A mi croscopic examination was performed. All controls show appropriate reactivity. All immunohistochemistry (IHC), in situ hybridization (ANNA), and histochemical tests were developed by and are performed at the [facility], Histology and IHC Lab, [address] [place] [address]. All Immunofluorescent (IF) tests were developed by and are performed at the [facility], Renal Division, [address] [place] [address]. All tests reported here, except for PD-L1, have not been cleared by or approved by the US Food and Drug Administration (FDA). The laboratory is regulated under CLIA as qualified to perform high-complexity testing. The tests are used for clinical purposes. They should not be regarded as investigational or for research. Performed By: #### S URGP #### [facility] (DEFAULT) [address] [place] [address] Pathologic Diagnosis Normal [facility] Comment on above: Result Comment: A. L [...] unremarkable. Performed By: #### S URGP #### [facility] (DEFAULT) [address] [place] [address] Professional Interpretation Performed at: [facility] Comment on above: Result Comment: [facility] For Immediate Release to Patient's [facility]? Yes [address] [place] [address] Performed By: #### S URGP #### [facility] (DEFAULT) [address] [place] [address] UPPER EUSon 06-23-[address] [facility] Gastroenterology Patient Name: Leroy Tyler Procedure Date: 06/23/2024 12:48 PM Date of : 1965 Admit Type: Outpatient Age: 58 Room: EUS Proc Room 02 Gender: Female Note Status: Finalized Attending MD: Blas Merrill MD, [id number] Procedure: Upper EUS Indications: Gastric mucosal mass/polyp found on endoscopy Providers: Blas Merrill MD (Doctor), Bia Aggarwal, ALFONZO (Nurse), Irvin Acosta RN (Nurse), MEL Iniguez (Anesthesia Staff), Danilo Geiger DO (Anesthesia Staff) Referring MD: Karolina Piedra, FLIGHT RADIO OFFICER-SALES ACCOUNT MANAGER, DNP (Referring MD) Medicines: Monitored Anesthesia Care [...] verified by the physician, the nurse, the arcade technician and the pollution control technician in the procedure room. Mental Status [...] (Mantis) was successfully placed (MR conditional). 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 There was no bleeding at the end of the procedure. (more content not included)... LAB, [facility] Radiology Study observation (narrative) [facility] Gastric Emptying Studyon Gastric Emptying Study Normal [facility] Endocrinology Visit Reporton 06-08-2024 Endocrinology Visit Report Normal [facility] Fecal Fat, Qualitativeon FATS, NEUTRAL Normal Normal . [facility] Comment on above: Order Comment: Test( s) 062847-Cpdd, Neutral; 393903-Gqoe, Totalwas developed and its performance characteristicsdetermined by [facility]. It has not been cleared or approvedby the Food and Drug Administration. Result Comment: Norm al (<60 Droplets/HPF) Performed By: #### L 7000.0750, L7000.0300 ####[facility] [address] [place] [id number] FATS, TOTAL Normal Normal . [facility] Comment on above: Order Comment: Test( s) 060940-Qgdj, Neutral; 714131-Tlwr, Totalwas developed and its performance characteristicsdetermined by [employer]. It has not been cleared or approvedby the Food and Drug Administration. Result Comment: Norm al (<100 Droplets/HPF)Performed at: [address] [id number] Director: Awais Macias PhD, Phone: [phone] Performed By: #### L 7000.0750, L7000.0300 ####[facility] [address] [place], [address] L7000.0750on 06-04-2024 P ELASTASE,FECA > 800 Normal >200 [facility] Comment on above: Result Comment: Resu lt Units: ug Elast./g Severe Pancreatic Insufficiency: <100 Moderate Pancreatic Insufficiency: 100 - 200 Normal: >200Performed at: [address] [id number] Director: Johnny Cruz MD, Phone: [phone] Performed By: #### L 7000.0750, L7000.0300 ####[facility] [address] [place], [address] Elastase.pancreatic (Stl) [M ass/Mass]Ordered By: Ralph Singh on 06-02-2024 Stool Pancreatic Elastase > 800 >200 [facility] Comment on above: Result Units: ug Zari st./g Severe Pancreatic Insufficiency: <100 Moderate Pancreatic Insufficiency: 100 - 200 Normal: >200Performed at: - [facility] [id number] Director: Johnny Cruz MD, Phone: [phone] Fat Ql (Stl)Ordered By: Quintin Singh on 06-02-2024 Stool Total Fats Normal . [facility] Comment on above: Normal (<100 Droplet s/HPF)Performed at: - [facility] [id number] Director: Awais Macias PhD, Phone: [phone] No Panel InformationOrdered By: Ralph Singh on 06-02-2024 Stool Neutral Fats Normal . [facility] Comment on above: Normal (<60 Droplets /HPF) Celiac AB,Comprehensiveon ANTIGLIADIN IGA 1 units Normal 0-19 [facility] Comment on above: Order Comment: Blanca c Antibodies tTG IgA/DGP IgG Screen Result Comment: Nega tive 0 - 19 Weak Positive 20 - 30 Moderate to Strong Positive >30 Performed By: #### L 501.2450, L801.1541, L3300.1800, L300.3900, L3410.2350, L501.6710, L801.1543, L500.4050, L3100.5440, L500.4100, L100.0100 ####[facility] [address] [place], [place], [id number] ANTIGLIADIN IGG 3 units Normal 0-19 [facility] Comment on above: Order Comment: Blanca c Antibodies tTG IgA/DGP IgG Screen Result Comment: Nega tive 0 - 19 Weak Positive 20 - 30 Moderate to Strong Positive >30 Performed By: #### L 501.2450, L801.1541, L3300.1800, L300.3900, L3410.2350, L501.6710, L801.1543, L500.4050, L3100.5440, L500.4100, L100.0100 ####[facility] [address] [place], [place], [address] ENDOMYSIAL IGA Negative Normal Negative [facility] Comment on above: Order Comment: Blanca c Antibodies tTG IgA/DGP IgG Screen Performed By: #### L 501.2450, L801.1541, L3300.1800, L300.3900, L3410.2350, L501.6710, L801.1543, L500.4050, L3100.5440, L500.4100, L100.0100 ####[facility] [address] [place], [address] IMMUNOGLOB A QN < 5 Low 87-352 [facility] Comment on above: Order Comment: Blanca c Antibodies tTG IgA/DGP IgG Screen Result Comment: Resu lt confirmed on concentration. Performed By: #### L 501.2450, L801.1541, L3300.1800, L300.3900, L3410.2350, L501.6710, L801.1543, L500.4050, L3100.5440, L500.4100, L100.0100 ####[facility] [address] [place], [place], [address] tTG IGA <2 Normal 0-3 [facility] Comment on above: Order Comment: Blanca [...] L3410.2350, L501.6710, L801.1543, L500.4050, L3100.5440, L500.4100, L100.0100 ####[facility] [address] [place], [place], [address] tTG IGG 5 U/mL Normal 0-5 [facility] Comment on above: Order Comment: Blanca c Antibodies tTG IgA/DGP IgG Screen Result Comment: Nega tive 0 - 5 Weak Positive 6 - 9 Positive >9 Performed By: #### L 501.2450, L801.1541, L3300.1800, L300.3900, L3410.2350, L501.6710, L801.1543, L500.4050, L3100.5440, L500.4100, L100.0100 ####[facility] [address] [facility] [address] [place], [place], [id number] Gastrin, Serumon 06-01-2024 GASTRIN 740 pg/mL High 0-115 [facility] Comment on above: Order Comment: Blanca c Antibodies tTG IgA/DGP IgG Screen Result Comment: Siem banner Immulite 2000 Immunochemiluminometric assay (ICMA)Values obtained with different assay methods or kits cannotbe used interchangeably. Results cannot be interpreted asabsolute evidence of the presence or absence of malignantdisease.Performed at: [address] [id number] Director: Awais Macias PhD, Phone: [phone] at: [address] [id number] Director: Johnny Cruz MD, Phone: [phone] Performed By: #### L 501.2450, L801.1541, L3300.1800, L300.3900, L3410.2350, L501.6710, L801.1543, L500.4050, L3100.5440, L500.4100, L100.0100 ####[facility] [address] [place], [address] Miscellaneous Lab Procedure 2on 06-01-2024 [facility] 2 Normal [facility] Comment on above: Order Comment: Comme nts: Celiac Antibodies tTG IgA/DGP IgG ScreenSER/[id number] CELIAC ANTIBODY SER/RT Result Comment: TEST RESULTS [...] to Strong Positive >30 TESTING PERFORMED AT [facility]. ORIGINAL REPORT ON FILE IN LAB CONTAINS ADDITIONAL TEST SITE INFORMATION. Performed By: #### L 501.2450, L801.1541, L3300.1800, L300.3900, L3410.2350, L501.6710, L801.1543, L500.4050, L3100.5440, L500.4100, L100.0100 ####[facility] [address] [place], [address] JOSTIN Comprehensive Panelon JOSTIN TABLE Comment Normal . [facility] Comment on above: Result Comment: Auto antibody Disease Association ------- Condition Frequency ---------Antinuclear Antibody, SLE, mixed connectiveDirect (JOSTIN-D) tissue diseases ---------dsDNA SLE 40 - 60% ---------Chromatin Drug induced SLE 90% SLE 48 - 97% ---------SSA (Ro) SLE 25 - 35% Sjogren's Syndrome 40 - 70% Lupus 100% ---------SSB (La) SLE 10% Sjogren's Syndrome 30% ---------Sm (anti-Noriega) SLE 15 - 30% ---------DRAFTING CLERK Mixed Connective Tissue Disease 95%(U1 nRNP, SLE 30 - 50%anti-ribonucleoprotein) Polymyositis and/or Dermatomyositis 20% ---------Scl-70 (antiDNA Scleroderma (diffuse) 20 - 35%topoisomerase) Crest 13% ---------Cheyenne-1 Polymyositis and/or Dermatomyositis 20 - 40% ---------Centromere B Scleroderma - Crest variant 80%Performed at: [facility] [place] [id number] Director: Awais Macias PhD, Phone: [phone] Performed By: #### L 501.2450, L801.1541, L3300.1800, L300.3900, L3410.2350, L501.6710, L801.1543, L500.4050, L3100.5440, L500.4100, L100.0100 ####[facility] [address] [facility] [place], [address] ANTI-CENT B AB <0.2 Normal 0.0-0.9 [facility] Comment on above: Performed By: #### L 501.2450, L801.1541, L3300.1800, L300.3900, L3410.2350, L501.6710, L801.1543, L500.4050, L3100.5440, L500.4100, L100.0100 ####[facility] [address] [facility] [place], [address] ANTI-DNA (DS)AB <1 Normal 0-9 [facility] Comment on above: Result Comment: Nega tive <5 Equivocal 5 - 9 Positive >9 Performed By: #### L 501.2450, L801.1541, L3300.1800, L300.3900, L3410.2350, L501.6710, L801.1543, L500.4050, L3100.5440, L500.4100, L100.0100 ####[facility] [address] [place], [address] ANTI-CHEYENNE-1 <0.2 Normal 0.0-0.9 [facility] Comment on above: Performed By: #### L 501.2450, L801.1541, L3300.1800, L300.3900, L3410.2350, L501.6710, L801.1543, L500.4050, L3100.5440, L500.4100, L100.0100 ####[facility] [address] [place], [address] ANTI-SS-A < 0.2 Normal 0.0-0.9 [facility] Comment on above: Performed By: #### L 501.2450, L801.1541, L3300.1800, L300.3900, L3410.2350, L501.6710, L801.1543, L500.4050, L3100.5440, L500.4100, L100.0100 ####[facility] [address] [place], [address] ANTI-SS-B < 0.2 Normal 0.0-0.9 [facility] Comment on above: Performed By: #### L 501.2450, L801.1541, L3300.1800, L300.3900, L3410.2350, L501.6710, L801.1543, L500.4050, L3100.5440, L500.4100, L100.0100 ####[facility] [address] [place], [address] ANTICHROMATIN <0.2 Normal 0.0-0.9 [facility] Comment on above: Performed By: #### L 501.2450, L801.1541, L3300.1800, L300.3900, L3410.2350, L501.6710, L801.1543, L500.4050, L3100.5440, L500.4100, L100.0100 ####[facility] [address] [place], [address] ANTISCLERODERM <0.2 Normal 0.0-0.9 [facility] Comment on above: Performed By: #### L 501.2450, L801.1541, L3300.1800, L300.3900, L3410.2350, L501.6710, L801.1543, L500.4050, L3100.5440, L500.4100, L100.0100 ####[facility] [address] [place], [address] DRAFTING CLERK Ab 0.2 AI Normal 0.0-0.9 [facility] Comment on above: Performed By: #### L 501.2450, L801.1541, L3300.1800, L300.3900, L3410.2350, L501.6710, L801.1543, L500.4050, L3100.5440, L500.4100, L100.0100 ####[facility] [address] [place], [address] NORIEGA Ab <0.2 Normal 0.0-0.9 [facility] Comment on above: Performed By: #### L 501.2450, L801.1541, L3300.1800, L300.3900, L3410.2350, L501.6710, L801.1543, L500.4050, L3100.5440, L500.4100, L100.0100 ####[facility] [address] [place], [place], [phone] CBC W/Diff, Automatedon 11-0 -2023 Absolute Lymph 2.37 X10 3/uL Normal 0.83-4.51 [facility] Comment on above: Performed By: #### L 501.2450, L801.1541, L3300.1800, L300.3900, L3410.2350, L501.6710, L801.1543, L500.4050, L3100.5440, L500.4100, L100.0100 ####[facility] [address] [place], [phone] Absolute Neut 5.6 X10 3/uL Normal 2.0-7.7 [facility] Comment on above: Performed By: #### L 501.2450, L801.1541, L3300.1800, L300.3900, L3410.2350, L501.6710, L801.1543, L500.4050, L3100.5440, L500.4100, L100.0100 ####[facility] [address] [place], [address] Basophils/100 WBC (Bld) 0.7 % Normal 0-1 [facility] Comment on above: Performed By: #### L 501.2450, L801.1541, L3300.1800, L300.3900, L3410.2350, L501.6710, L801.1543, L500.4050, L3100.5440, L500.4100, L100.0100 ####[facility] [address] [place], [address] Eosinophils/100 WBC (Bld) 2.7 % Normal 0-5 [facility] Comment on above: Performed By: #### L 501.2450, L801.1541, L3300.1800, L300.3900, L3410.2350, L501.6710, L801.1543, L500.4050, L3100.5440, L500.4100, L100.0100 ####[facility] [address] [place], [place], [phone]) Erythrocyte distribution width (RBC) [Ratio] 15.5 % High 11.6-14.6 [facility] Comment on above: Performed By: #### L 501.2450, L801.1541, L3300.1800, L300.3900, L3410.2350, L501.6710, L801.1543, L500.4050, L3100.5440, L500.4100, L100.0100 ####[facility] [address] [place], [phone]) Hematocrit (Bld) [Volume fraction] 37.4 % Normal 37-47 [facility] Comment on above: Performed By: #### L 501.2450, L801.1541, L3300.1800, L300.3900, L3410.2350, L501.6710, L801.1543, L500.4050, L3100.5440, L500.4100, L100.0100 ####[facility] [address] [place], [address]([phone]) Hemoglobin (Bld) [Mass/Vol] 11.3 g/dL Low 12.0-15.0 [facility] Comment on above: Performed By: #### L 501.2450, L801.1541, L3300.1800, L300.3900, L3410.2350, L501.6710, L801.1543, L500.4050, L3100.5440, L500.4100, L100.0100 ####[facility] [address] [place], [phone]) IG% 0.900 Normal 0.0-0.9 [facility] Comment on above: Result Comment: IG% - Immature Granulocytes (promyelocytes, myelocytes andmetamyelocytes) > 1% indicates that a LEFT SHIFT is Present. Performed By: #### L 501.2450, L801.1541, L3300.1800, L300.3900, L3410.2350, L501.6710, L801.1543, L500.4050, L3100.5440, L500.4100, L100.0100 ####[facility] [address] [place], [address] Lymphocytes/100 WBC (Bld) 26.6 % Normal 19-41 [facility] Comment on above: Performed By: #### L 501.2450, L801.1541, L3300.1800, L300.3900, L3410.2350, L501.6710, L801.1543, L500.4050, L3100.5440, L500.4100, L100.0100 ####[facility] [address] [place], [address] MCH (RBC) [Entitic mass] 23.9 pg Low 27.0-32.0 [facility] Comment on above: Performed By: #### L 501.2450, L801.1541, L3300.1800, L300.3900, L3410.2350, L501.6710, L801.1543, L500.4050, L3100.5440, L500.4100, L100.0100 ####[facility] [address] [place], [address] MCHC (RBC) [Mass/Vol] 30.2 g/dL Low 32-36 [facility] Comment on above: Performed By: #### L 501.2450, L801.1541, L3300.1800, L300.3900, L3410.2350, L501.6710, L801.1543, L500.4050, L3100.5440, L500.4100, L100.0100 ####[facility] [address] [place], [address] MCV (RBC) [Entitic vol] 79.1 fL Low 81-99 [facility] Comment on above: Performed By: #### L 501.2450, L801.1541, L3300.1800, L300.3900, L3410.2350, L501.6710, L801.1543, L500.4050, L3100.5440, L500.4100, L100.0100 ####[facility] [address] [place], [address] Monocytes/100 WBC (Bld) 6.5 % Normal 0-10 [facility] Comment on above: Performed By: #### L 501.2450, L801.1541, L3300.1800, L300.3900, L3410.2350, L501.6710, L801.1543, L500.4050, L3100.5440, L500.4100, L100.0100 ####[facility] [address] [place], [address] Neutrophils/100 WBC (Bld) 62.6 % Normal 47-70 [facility] Comment on above: Performed By: #### L 501.2450, L801.1541, L3300.1800, L300.3900, L3410.2350, L501.6710, L801.1543, L500.4050, L3100.5440, L500.4100, L100.0100 ####[facility] [address] [place], [address] Nucleated RBC (Bld) [#/Vol] 0 10*3/uL Normal 0-5 [facility] Comment on above: Performed By: #### L 501.2450, L801.1541, L3300.1800, L300.3900, L3410.2350, L501.6710, L801.1543, L500.4050, L3100.5440, L500.4100, L100.0100 ####[facility] [address] [place], [address] Platelet mean volume (Bld) [Entitic vol] 9.7 fL Normal 6.2-12.0 [facility] Comment on above: Performed By: #### L 501.2450, L801.1541, L3300.1800, L300.3900, L3410.2350, L501.6710, L801.1543, L500.4050, L3100.5440, L500.4100, L100.0100 ####[facility] [address] [place], [address] Platelets (Bld) [#/Vol] 259 10*3/uL Normal 150-450 [facility] Comment on above: Performed By: #### L 501.2450, L801.1541, L3300.1800, L300.3900, L3410.2350, L501.6710, L801.1543, L500.4050, L3100.5440, L500.4100, L100.0100 ####[facility] [address] [place], [address] RBC (Bld) [#/Vol] 4.73 10*6/uL Normal 4.2-5.4 [facility] Comment on above: Performed By: #### L 501.2450, L801.1541, L3300.1800, L300.3900, L3410.2350, L501.6710, L801.1543, L500.4050, L3100.5440, L500.4100, L100.0100 ####[facility] [address] [place], [address] RDW SD 44.1 fl High 35.1-43.9 [facility] Comment on above: Performed By: #### L 501.2450, L801.1541, L3300.1800, L300.3900, L3410.2350, L501.6710, L801.1543, L500.4050, L3100.5440, L500.4100, L100.0100 ####[facility] [address] [place], [place], [phone] WBC (Bld) [#/Vol] 8.9 10*3/uL Normal 4.4-11.[address] [facility] Comment on above: Performed By: #### L 501.2450, L801.1541, L3300.1800, L300.3900, L3410.2350, L501.6710, L801.1543, L500.4050, L3100.5440, L500.4100, L100.0100 ####[facility] [address] [place], [address] CRPon 05-29-2024 C-REACTIVE PROT 25.90 mg/L High 0.0-3.0 [facility] Comment on above: Order Comment: Blanca c Antibodies tTG IgA/DGP IgG Screen Result Comment: C-Re active Protein (CRP) provides useful information for thediagnosis, therapy and monitoring of inflammatory processesand associated diseases. For the evaluation of Relative Riskfor Cardiovascular Disease, a High Sensitivity CRP (HSCRP)should be ordered. Performed By: #### L 501.2450, L801.1541, L3300.1800, L300.3900, L3410.2350, L501.6710, L801.1543, L500.4050, L3100.5440, L500.4100, L100.0100 ####[facility] [address] [facility] [place], [place], [phone] Comprehensive Metabolic Prof ilon 05-29-2024 Albumin [Mass/Vol] 3.6 g/dL Normal 3.2-5.[address] [facility] Comment on above: Order Comment: Blanca c Antibodies tTG IgA/DGP IgG Screen Performed By: #### L 501.2450, L801.1541, L3300.1800, L300.3900, L3410.2350, L501.6710, L801.1543, L500.4050, L3100.5440, L500.4100, L100.0100 ####[facility] [address] [facility] [place], [address] Albumin/Globulin [Mass ratio] 0.7 {ratio} Low 0.9-2.4 [facility] Comment on above: Order Comment: Blanca c Antibodies tTG IgA/DGP IgG Screen Performed By: #### L 501.2450, L801.1541, L3300.1800, L300.3900, L3410.2350, L501.6710, L801.1543, L500.4050, L3100.5440, L500.4100, L100.0100 ####[facility] [address] [place], [place], [phone] ALK P 122 U/L High 45-117 [facility] Comment on above: Order Comment: Blanca c Antibodies tTG IgA/DGP IgG Screen Performed By: #### L 501.2450, L801.1541, L3300.1800, L300.3900, L3410.2350, L501.6710, L801.1543, L500.4050, L3100.5440, L500.4100, L100.0100 ####[facility] [address] [facility] [address] [place], [place], [phone] ALT [Catalytic activity/Vol] 38 U/L Normal 13-56 [facility] Comment on above: Order Comment: Blanca c Antibodies tTG IgA/DGP IgG Screen Performed By: #### L 501.2450, L801.1541, L3300.1800, L300.3900, L3410.2350, L501.6710, L801.1543, L500.4050, L3100.5440, L500.4100, L100.0100 ####[facility] [address] [place], [place], [phone] AST [Catalytic activity/Vol] 38 U/L High 15-37 [facility] Comment on above: Order Comment: Blanca c Antibodies tTG IgA/DGP IgG Screen Performed By: #### L 501.2450, L801.1541, L3300.1800, L300.3900, L3410.2350, L501.6710, L801.1543, L500.4050, L3100.5440, L500.4100, L100.0100 ####[facility] [address] [place], [place], [phone]) Bilirubin [Mass/Vol] 0.70 mg/dL Normal 0.20-1.00 [facility] Comment on above: Order Comment: Blanca c Antibodies tTG IgA/DGP IgG Screen Result Comment: For patients on eltrombopag therapy, use of Dimension Fitzpatrick TBIL is not recommended. Performed By: #### L 501.2450, L801.1541, L3300.1800, L300.3900, L3410.2350, L501.6710, L801.1543, L500.4050, L3100.5440, L500.4100, L100.0100 ####[facility] [address] [place], [place], [phone] BUN/CRE 19.1 RATIO Normal 10-20 [facility] Comment on above: Order Comment: Blanca c Antibodies tTG IgA/DGP IgG Screen Performed By: #### L 501.2450, L801.1541, L3300.1800, L300.3900, L3410.2350, L501.6710, L801.1543, L500.4050, L3100.5440, L500.4100, L100.0100 ####[facility] [address] [place], [place], [phone] CA,Total 10.0 mg/dL Normal 8.5-10.1 [facility] Comment on above: Order Comment: Blanca c Antibodies tTG IgA/DGP IgG Screen Performed By: #### L 501.2450, L801.1541, L3300.1800, L300.3900, L3410.2350, L501.6710, L801.1543, L500.4050, L3100.5440, L500.4100, L100.0100 ####[facility] [address] [place], [address] Chloride [Moles/Vol] 99 mmol/L Normal 98-107 [facility] Comment on above: Order Comment: Blanca c Antibodies tTG IgA/DGP IgG Screen Performed By: #### L 501.2450, L801.1541, L3300.1800, L300.3900, L3410.2350, L501.6710, L801.1543, L500.4050, L3100.5440, L500.4100, L100.0100 ####[facility] [address] [place], [address] CO2 [Moles/Vol] 31.0 mmol/L Normal 21.0-32.0 [facility] Comment on above: Order Comment: Blanca c Antibodies tTG IgA/DGP IgG Screen Performed By: #### L 501.2450, L801.1541, L3300.1800, L300.3900, L3410.2350, L501.6710, L801.1543, L500.4050, L3100.5440, L500.4100, L100.0100 ####[facility] [address] [place], [address] Creatinine [Mass/Vol] 0.89 mg/dL Normal 0.55-1.02 [facility] Comment on above: Order Comment: Blanca c Antibodies tTG IgA/DGP IgG Screen Result Comment: The validity of the calculated GFR GFRAA in patients over70 years has not been determined. Clinical correlation isessential. Performed By: #### L 501.2450, L801.1541, L3300.1800, L300.3900, L3410.2350, L501.6710, L801.1543, L500.4050, L3100.5440, L500.4100, L100.0100 ####[facility] [address] [place], [place], [phone] EST GFR - AA 84 mL/min Normal >60 [facility] Comment on above: Order Comment: Blanca c Antibodies tTG IgA/DGP IgG Screen Result Comment: Afri can Tajik GFR Calc Performed By: #### L 501.2450, L801.1541, L3300.1800, L300.3900, L3410.2350, L501.6710, L801.1543, L500.4050, L3100.5440, L500.4100, L100.0100 ####[facility] [address] [place], [address] GAP 4 Low 5-15 [facility] Comment on above: Order Comment: Blanca c Antibodies tTG IgA/DGP IgG Screen Performed By: #### L 501.2450, L801.1541, L3300.1800, L300.3900, L3410.2350, L501.6710, L801.1543, L500.4050, L3100.5440, L500.4100, L100.0100 ####[facility] [address] [place], [address] GFR/1.73 sq M.predicted among non-blacks MDRD (S/P/Bld) [Vol rate/Area] 69 mL/min/{1.73_m2} Normal >60 [facility] Comment on above: Order Comment: Blanca c Antibodies tTG IgA/DGP IgG Screen Result Comment: Non- GFR Calc Performed By: #### L 501.2450, L801.1541, L3300.1800, L300.3900, L3410.2350, L501.6710, L801.1543, L500.4050, L3100.5440, L500.4100, L100.0100 ####[facility] [address] [place], [place], [phone]) Globulin (S) [Mass/Vol] 5.5 g/dL High 2.2-4.2 [facility] Comment on above: Order Comment: Blanca c Antibodies tTG IgA/DGP IgG Screen Performed By: #### L 501.2450, L801.1541, L3300.1800, L300.3900, L3410.2350, L501.6710, L801.1543, L500.4050, L3100.5440, L500.4100, L100.0100 ####[facility] [address] [place], [place], [phone]) Glucose [Mass/Vol] 160 mg/dL High 74-[address] [facility] Comment on above: Order Comment: Blanca c Antibodies tTG IgA/DGP IgG Screen Result Comment: Fast ing Glucose result greater than or equal to 126 mg/dLsuggests DIABETES MELLITUS per A.D.A. criteria. Performed By: #### L 501.2450, L801.1541, L3300.1800, L300.3900, L3410.2350, L501.6710, L801.1543, L500.4050, L3100.5440, L500.4100, L100.0100 ####[facility] [address] [place], [place], [phone]) Potassium [Moles/Vol] 4.4 mmol/L Normal 3.5-5.1 [facility] Comment on above: Order Comment: Blanca c Antibodies tTG IgA/DGP IgG Screen Performed By: #### L 501.2450, L801.1541, L3300.1800, L300.3900, L3410.2350, L501.6710, L801.1543, L500.4050, L3100.5440, L500.4100, L100.0100 ####[facility] [address] [place], [address] Sodium [Moles/Vol] 134 mmol/L Low 136-[address] [facility] Comment on above: Order Comment: Blanca c Antibodies tTG IgA/DGP IgG Screen Performed By: #### L 501.2450, L801.1541, L3300.1800, L300.3900, L3410.2350, L501.6710, L801.1543, L500.4050, L3100.5440, L500.4100, L100.0100 ####[facility] [address] [place], [place], [phone] T PROT 9.1 g/dL High 6.4-8.2 [facility] Comment on above: Order Comment: Blanca c Antibodies tTG IgA/DGP IgG Screen Performed By: #### L 501.2450, L801.1541, L3300.1800, L300.3900, L3410.2350, L501.6710, L801.1543, L500.4050, L3100.5440, L500.4100, L100.0100 ####[facility] [address] [place], [place], [phone] Urea nitrogen [Mass/Vol] 17 mg/dL Normal 7-18 [facility] Comment on above: Order Comment: Blanca c Antibodies tTG IgA/DGP IgG Screen Performed By: #### L 501.2450, L801.1541, L3300.1800, L300.3900, L3410.2350, L501.6710, L801.1543, L500.4050, L3100.5440, L500.4100, L100.0100 ####[facility] [address] [place], [place], [phone] Gastroenterology Visit Repor ton 05-29-2024 Gastroenterology Visit Report Normal [facility] Lipaseon 05-29-2024 Lipase [Catalytic activity/Vol] 38 U/L Normal 13-75 [facility] Comment on above: Order Comment: Blanca c Antibodies tTG IgA/DGP IgG Screen Result Comment: Ronnie mcleod note:LIPASE revised reference range effective 22.New Lipase methodology. Expected to produce lower valuesthan the previous assay method.NEW Reference Range: 13 - 75 U/L Performed By: #### L 501.2450, L801.1541, L3300.1800, L300.3900, L3410.2350, L501.6710, L801.1543, L500.4050, L3100.5440, L500.4100, L100.0100 ####[facility] [address] [place], [place], [phone] Lipid Profileon 05-29-2024 Cholesterol [Mass/Vol] 183 mg/dL Normal 200 [facility] Comment on above: Order Comment: Blanca c Antibodies tTG IgA/DGP IgG Screen Result Comment: <200 mg/dL Desirable 200-240 mg/dL Borderline >240 mg/dL High Risk Performed By: #### L 501.2450, L801.1541, L3300.1800, L300.3900, L3410.2350, L501.6710, L801.1543, L500.4050, L3100.5440, L500.4100, L100.0100 ####[facility] [address] [place], [place], [phone] Cholesterol in HDL [Mass/Vol] 35 mg/dL Low [facility] Comment on above: Order Comment: Blanca c Antibodies tTG IgA/DGP IgG Screen Result Comment: The drugs N-Acetylcysteine and Metamizole may falselydepress this assay. Reference Range HDL <40 mg/dL Low HDL Cholesterol HDL >or= 60 mg/dL High HDL Cholesterol Performed By: #### L 501.2450, L801.1541, L3300.1800, L300.3900, L3410.2350, L501.6710, L801.1543, L500.4050, L3100.5440, L500.4100, L100.0100 ####[facility] [address] [place], [address] Cholesterol in LDL [Mass/Vol] 95 mg/dL Normal 0-130 [facility] Comment on above: Order Comment: Blanca c Antibodies tTG IgA/DGP IgG Screen Performed By: #### L 501.2450, L801.1541, L3300.1800, L300.3900, L3410.2350, L501.6710, L801.1543, L500.4050, L3100.5440, L500.4100, L100.0100 ####[facility] [address] [place], [address] Cholesterol in VLDL [Mass/Vol] 53 mg/dL High 5-40 [facility] Comment on above: Order Comment: Blanca c Antibodies tTG IgA/DGP IgG Screen Performed By: #### L 501.2450, L801.1541, L3300.1800, L300.3900, L3410.2350, L501.6710, L801.1543, L500.4050, L3100.5440, L500.4100, L100.0100 ####[facility] [address] [facility] [place], [address] Triglyceride [Mass/Vol] 265 mg/dL High [facility] Comment on above: Order Comment: Blanca c Antibodies tTG IgA/DGP IgG Screen Result Comment: The drugs N-Acetylcysteine and Metamizole may falselydepress this assay.Serum Triglycerides Reference Interval Normal <150 mg/dL Borderline high 150 - 199 mg/dL High 200 - 499 mg/dL Very High > or = 500 mg/dL Performed By: #### L 501.2450, L801.1541, L3300.1800, L300.3900, L3410.2350, L501.6710, L801.1543, L500.4050, L3100.5440, L500.4100, L100.0100 ####[facility] [address] [place], [address] Prothrombin Time w/INRon 11- 08-2024 INR Coag (PPP) [Relative time] 1.2 {INR} Normal [facility] Comment on above: Performed By: #### L 501.2450, L801.1541, L3300.1800, L300.3900, L3410.2350, L501.6710, L801.1543, L500.4050, L3100.5440, L500.4100, L100.0100 ####[facility] [address] [place], [address] PT Coag (PPP) [Time] 15.1 s High 11.7-14.9 [facility] Comment on above: Performed By: #### L 501.2450, L801.1541, L3300.1800, L300.3900, L3410.2350, L501.6710, L801.1543, L500.4050, L3100.5440, L500.4100, L100.0100 ####[facility] [address] [place], [place], [address] SURG PATH REQUESTon 05-27-20 Case Report [facility] Comment on above: Result Comment: Surg ical Pathology Report Case: [id number] Authorizing Provider: Karolina Piedra, Collected: 05/27/2024 08:28 AM KHADIJAH-ALEXEI, INDIRA Ordering Location[facility] Received: 05/27/2024 08:29 AM DEJA Pathologist: Mohit Almanzar MD Specimen: SURG PATH, Gastric Mass, Biopsy Performed By: #### P CA #### [facility] (DEFAULT) [address] [place] [address] Clinical History Request received fro semaj Rod MD for second opinion consultation on slides received: Please review outside path; endoscopy 04/04/2024 at [facility]. Interested in margins, and grade, size, etc. Thank you. Pre-Op Diagnosis: upper GI bleed. Normal [facility] Comment on above: Performed By: #### P CA #### [facility] (DEFAULT) [address] [place] [address] Diagnosis Comments All immunohistochemi hammad stains were performed at outside institution and submitted for review. [facility] Comment on above: Performed By: #### P CA #### [facility] (DEFAULT) [address] [place] [id number] Gross Description [facility] Comment on above: Result Comment: The following material(s) are received from [facility], [address] [place] [phone], with an identifying surgical pathology report: 7 H&E slide(s) and 16 non-H&E slide(s), labeled [id number]. Outside materials are returned in sixty (60) days under separate cover with our number recorded on them. Grosser for this case was: Rosa Hardin Performed By: #### P CA #### [facility] (DEFAULT) [address] [place] [address] Microscopic Description A microscopic examination was performed. [facility] Comment on above: Performed By: #### P CA #### [facility] (DEFAULT) [address] [place] [address] Pathologic Diagnosis [facility] Comment on above: Result Comment: Outs jina Slides: [id number] (04/04/2024) A. Gastric Mass, Biopsy: Well differentiated [...] Performed By: #### P CA #### [facility] (DEFAULT) [address] [place] [phone] Professional Interpretation Performed at: Normal [facility] Comment on above: Result Comment: [facility] For Immediate Release to Patient's MyChart? Yes [address] [address] Performed By: #### P CA #### [facility] (DEFAULT) [address] [place] [address] AFP, Tumor Markeron 05-14-20 24 AFP TUMOR PAPA < 1.8 Normal 0.0-9.2 [facility] Comment on above: Order Comment: Test( s) 482453-Vgtncm, Serum or Plasmawas developed and its performance characteristicsdetermined by [employer]. It has not been cleared or approvedby [...] L3100.5450, L503.6550, L501.4700, L503.5510, L3130.0010, L506.1000, L3100.3425 ####[facility] [address] [place], [place], [address] ANCAon 05-14-2024 Atypical pANCA <1:20 Normal Neg:<1:20 [facility] Comment on above: Order Comment: Test( s) 038557-Nmvrzz, Serum or Plasmawas developed and its performance characteristicsdetermined by [employer]. It has not been cleared or approvedby [...] L3100.5450, L503.6550, L501.4700, L503.5510, L3130.0010, L506.1000, L3100.3425 ####[facility] [address] [facility] [place], [place], [address] Cytoplasmic Ab 1:80 Abnormal Neg:<1:20 [facility] Comment on above: Order Comment: Test( s) 256409-Dhfmgi, Serum or Plasmawas developed and its performance characteristicsdetermined by [employer]. It has not been cleared or approvedby the Food and Drug Administration.NNN Performed By: #### L 501.9520, L506.0400, L803.2200, L100.0100, L500.4050, L3300.0700, L500.4100, L800.1280, L3410.2400, L501.9985, L3100.1850, L504.2610, L3300.0100, L3400.0700, L300.3900, L3200.1100, L3000.0375, L503.6030, L3890.6005, L501.6710, L3300.1200, L3100.5450, L503.6550, L501.4700, L503.5510, L3130.0010, L506.1000, L3100.3425 ####[facility] [address] [place], [place], [address] Perinuclear Ab. <1:20 Normal Neg:<1:20 [facility] Comment on above: Order Comment: Test( s) 585890-Mchafb, Serum or Plasmawas developed and its performance characteristicsdetermined by [employer]. It has not been cleared or approvedby the Food and Drug Administration.NNN Result Comment: The presence of positive fluorescence exhibiting P-ANCA orC-ANCA patterns alone is not specific for the diagnosis ofWegener's Granulomatosis (WG) or microscopic polyangiitis.Decisions about treatment should not be based solely onANCA IFA results. The International ANCA Group Consensusrecommends follow up testing of positive sera with both SD-3 and MPO-ANCA enzyme immunoassays. As many as 5% serumsamples are positive only by EIA. Ref. AM J Clin Yqrvxo5542;111:507-513. Performed By: #### L 501.9520, L506.0400, L803.2200, L100.0100, L500.4050, L3300.0700, L500.4100, L800.1280, L3410.2400, L501.9985, L3100.1850, L504.2610, L3300.0100, L3400.0700, L300.3900, L3200.1100, L3000.0375, L503.6030, L3890.6005, L501.6710, L3300.1200, L3100.5450, L503.6550, L501.4700, L503.5510, L3130.0010, L506.1000, L3100.3425 ####[facility] [address] [place], [place], [address] Anti-Smooth Muscle ABSon ANTISMOOTH MUSC 24 Units Abnormal 0-19 [facility] Comment on above: Order Comment: Test( s) 605500-Tosroz, Serum or Plasmawas developed and its performance characteristicsdetermined by [employer]. It has not been cleared or approvedby [...] L3100.5450, L503.6550, L501.4700, L503.5510, L3130.0010, L506.1000, L3100.3425 ####[facility] [address] [place], [place], [address] Celiac Disease Profile ENDOMYSIAL IGA Negative Normal Negative [facility] Comment on above: Order Comment: Test( s) 624601-Hmzlqc, Serum or Plasmawas developed and its performance characteristicsdetermined by [employer]. It has not been cleared or approvedby the Food and Drug Administration.NNN Performed By: #### L 501.9520, L506.0400, L803.2200, L100.0100, L500.4050, L3300.0700, L500.4100, L800.1280, L3410.2400, L501.9985, L3100.1850, L504.2610, L3300.0100, L3400.0700, L300.3900, L3200.1100, L3000.0375, L503.6030, L3890.6005, L501.6710, L3300.1200, L3100.5450, L503.6550, L501.4700, L503.5510, L3130.0010, L506.1000, L3100.3425 ####[facility] [address] [facility] [place], [place], [id number] tTG IGA <2 Normal 0-3 [facility] Comment on above: Order Comment: Test( s) 842275-Umwnlq, Serum or Plasmawas developed and its performance characteristicsdetermined by [employer]. It has not been cleared or approvedby [...] L3100.5450, L503.6550, L501.4700, L503.5510, L3130.0010, L506.1000, L3100.3425 ####[facility] [address] [facility] [place], [place], [address] tTG IGG 7 U/mL Abnormal 0-5 [facility] Comment on above: Order Comment: Test( s) 724819-Vbbrng, Serum or Plasmawas developed and its performance characteristicsdetermined by [employer]. It has not been cleared or approvedby the Food and Drug Administration.NNN Result Comment: Nega tive 0 - 5 Weak Positive 6 - 9 Positive >9 Performed By: #### L 501.9520, L506.0400, L803.2200, L100.0100, L500.4050, L3300.0700, L500.4100, L800.1280, L3410.2400, L501.9985, L3100.1850, L504.2610, L3300.0100, L3400.0700, L300.3900, L3200.1100, L3000.0375, L503.6030, L3890.6005, L501.6710, L3300.1200, L3100.5450, L503.6550, L501.4700, L503.5510, L3130.0010, L506.1000, L3100.3425 ####[facility] [address] [place], [place], [id number] Ceruloplasminon 05-14-2024 CERULOPLASMIN 34.4 mg/dL Normal 19.0-39.0 [facility] Comment on above: Order Comment: Test( s) 088950-Usvdkg, Serum or Plasmawas developed and its performance characteristicsdetermined by [employer]. It has not been cleared or approvedby the Food and Drug Administration.NNN Performed By: #### L 501.9520, L506.0400, L803.2200, L100.0100, L500.4050, L3300.0700, L500.4100, L800.1280, L3410.2400, L501.9985, L3100.1850, L504.2610, L3300.0100, L3400.0700, L300.3900, L3200.1100, L3000.0375, L503.6030, L3890.6005, L501.6710, L3300.1200, L3100.5450, L503.6550, L501.4700, L503.5510, L3130.0010, L506.1000, L3100.3425 ####[facility] [address] [place], [place], [address] Copper, Serum or Plasmaon COPPER, SERUM 130 ug/dL Normal 80-158 [facility] Comment on above: Order Comment: Test( s) 564631-Cjomyh, Serum or Plasmawas developed and its performance characteristicsdetermined by [employer]. It has not been cleared or approvedby the Food and Drug Administration.NNN Result Comment: Dete ction Limit = 5 Performed By: #### L 501.9520, L506.0400, L803.2200, L100.0100, L500.4050, L3300.0700, L500.4100, L800.1280, L3410.2400, L501.9985, L3100.1850, L504.2610, L3300.0100, L3400.0700, L300.3900, L3200.1100, L3000.0375, L503.6030, L3890.6005, L501.6710, L3300.1200, L3100.5450, L503.6550, L501.4700, L503.5510, L3130.0010, L506.1000, L3100.3425 ####[facility] [address] [place], [place], [id number] Haptoglobinon 05-14-2024 HAPTOGLOBIN 182 mg/dL Normal 33-346 [facility] Comment on above: Order Comment: Test( s) 597355-Qgmwru, Serum or Plasmawas developed and its performance characteristicsdetermined by [employer]. It has not been cleared or approvedby the Food and Drug Administration.NNN Result Comment: Perf ormed at: [facility] [place] [address] [id number] Director: Awais Macias PhD, Phone: [phone] at: [facility] [place] [address] [id number] Director: Johnny Cruz MD, Phone: [phone] Performed By: #### L 501.9520, L506.0400, L803.2200, L100.0100, L500.4050, L3300.0700, L500.4100, L800.1280, L3410.2400, L501.9985, L3100.1850, L504.2610, L3300.0100, L3400.0700, L300.3900, L3200.1100, L3000.0375, L503.6030, L3890.6005, L501.6710, L3300.1200, L3100.5450, L503.6550, L501.4700, L503.5510, L3130.0010, L506.1000, L3100.3425 ####[facility] [address] [place], [place], [address] Hepatitis Panel Acuteon 10-2 COMMENT Comment Normal . [facility] Comment on above: Order Comment: Test( s) 436489-Urxzqr, Serum or Plasmawas developed and its performance characteristicsdetermined by [employer]. It has not been cleared or approvedby [...] L3100.5450, L503.6550, L501.4700, L503.5510, L3130.0010, L506.1000, L3100.3425 ####[facility] [address] [place], [place], [id number] HEP B CORE,IgM Negative Normal Negative [facility] Comment on above: Order Comment: Test( s) 666983-Cfntej, Serum or Plasmawas developed and its performance characteristicsdetermined by [employer]. It has not been cleared or approvedby the Food and Drug Administration.NNN Performed By: #### L 501.9520, L506.0400, L803.2200, L100.0100, L500.4050, L3300.0700, L500.4100, L800.1280, L3410.2400, L501.9985, L3100.1850, L504.2610, L3300.0100, L3400.0700, L300.3900, L3200.1100, L3000.0375, L503.6030, L3890.6005, L501.6710, L3300.1200, L3100.5450, L503.6550, L501.4700, L503.5510, L3130.0010, L506.1000, L3100.3425 ####[facility] [address] [facility] [place], [address] HEP B SURF AG Negative Normal Negative [facility] Comment on above: Order Comment: Test( s) 604477-Tybbwb, Serum or Plasmawas developed and its performance characteristicsdetermined by [employer]. It has not been cleared or approvedby the Food and Drug Administration.NNN Performed By: #### L 501.9520, L506.0400, L803.2200, L100.0100, L500.4050, L3300.0700, L500.4100, L800.1280, L3410.2400, L501.9985, L3100.1850, L504.2610, L3300.0100, L3400.0700, L300.3900, L3200.1100, L3000.0375, L503.6030, L3890.6005, L501.6710, L3300.1200, L3100.5450, L503.6550, L501.4700, L503.5510, L3130.0010, L506.1000, L3100.3425 ####[facility] [address] [place], [address] HEP C VIRUS AB Non-Reactive Normal Non Reactive [facility] Comment on above: Order Comment: Test( s) 012845-Zodshm, Serum or Plasmawas developed and its performance characteristicsdetermined by [employer]. It has not been cleared or approvedby the Food and Drug Administration.NNN Performed By: #### L 501.9520, L506.0400, L803.2200, L100.0100, L500.4050, L3300.0700, L500.4100, L800.1280, L3410.2400, L501.9985, L3100.1850, L504.2610, L3300.0100, L3400.0700, L300.3900, L3200.1100, L3000.0375, L503.6030, L3890.6005, L501.6710, L3300.1200, L3100.5450, L503.6550, L501.4700, L503.5510, L3130.0010, L506.1000, L3100.3425 ####[facility] [address] [place], [address] HEPATITIS A-IgM Negative Normal Negative [facility] Comment on above: Order Comment: Test( s) 715254-Tajydn, Serum or Plasmawas developed and its performance characteristicsdetermined by [employer]. It has not been cleared or approvedby the Food and Drug Administration.NNN Result Comment: A ne gative anti-HAV IgM result suggests no recent orcurrent HAV infection. Performed By: #### L 501.9520, L506.0400, L803.2200, L100.0100, L500.4050, L3300.0700, L500.4100, L800.1280, L3410.2400, L501.9985, L3100.1850, L504.2610, L3300.0100, L3400.0700, L300.3900, L3200.1100, L3000.0375, L503.6030, L3890.6005, L501.6710, L3300.1200, L3100.5450, L503.6550, L501.4700, L503.5510, L3130.0010, L506.1000, L3100.3425 ####[facility] [address] [place], [address] NITIN + Protein Elect, Serumon 05-14-2024 Albumin [Mass/Vol] 3.2 g/dL Normal 2.9-4.[address] [facility] Comment on above: Order Comment: Test( s) 784897-Veusux, Serum or Plasmawas developed and its performance characteristicsdetermined by [employer]. It has not been cleared or approvedby the Food and Drug Administration.NNN Performed By: #### L 501.9520, L506.0400, L803.2200, L100.0100, L500.4050, L3300.0700, L500.4100, L800.1280, L3410.2400, L501.9985, L3100.1850, L504.2610, L3300.0100, L3400.0700, L300.3900, L3200.1100, L3000.0375, L503.6030, L3890.6005, L501.6710, L3300.1200, L3100.5450, L503.6550, L501.4700, L503.5510, L3130.0010, L506.1000, L3100.3425 ####[facility] [address] [place], [place], [address] Albumin/Globulin [Mass ratio] 0.7 {ratio} Normal 0.7-1.7 [facility] Comment on above: Order Comment: Test( s) 328641-Pcedmt, Serum or Plasmawas developed and its performance characteristicsdetermined by [employer]. It has not been cleared or approvedby the Food and Drug Administration.NNN Performed By: #### L 501.9520, L506.0400, L803.2200, L100.0100, L500.4050, L3300.0700, L500.4100, L800.1280, L3410.2400, L501.9985, L3100.1850, L504.2610, L3300.0100, L3400.0700, L300.3900, L3200.1100, L3000.0375, L503.6030, L3890.6005, L501.6710, L3300.1200, L3100.5450, L503.6550, L501.4700, L503.5510, L3130.0010, L506.1000, L3100.3425 ####[facility] [address] [place], [address] QDSYA-0-FWWK 0.3 g/dL Normal 0.0-0.4 [facility] Comment on above: Order Comment: Test( s) 530340-Hvtelv, Serum or Plasmawas developed and its performance characteristicsdetermined by [employer]. It has not been cleared or approvedby the Food and Drug Administration.NNN Performed By: #### L 501.9520, L506.0400, L803.2200, L100.0100, L500.4050, L3300.0700, L500.4100, L800.1280, L3410.2400, L501.9985, L3100.1850, L504.2610, L3300.0100, L3400.0700, L300.3900, L3200.1100, L3000.0375, L503.6030, L3890.6005, L501.6710, L3300.1200, L3100.5450, L503.6550, L501.4700, L503.5510, L3130.0010, L506.1000, L3100.3425 ####[facility] [address] [facility] [place], [address] GPTRY-9-TRES 0.9 g/dL Normal 0.4-1.0 [facility] Comment on above: Order Comment: Test( s) 600445-Zfydkz, Serum or Plasmawas developed and its performance characteristicsdetermined by [employer]. It has not been cleared or approvedby the Food and Drug Administration.NNN Performed By: #### L 501.9520, L506.0400, L803.2200, L100.0100, L500.4050, L3300.0700, L500.4100, L800.1280, L3410.2400, L501.9985, L3100.1850, L504.2610, L3300.0100, L3400.0700, L300.3900, L3200.1100, L3000.0375, L503.6030, L3890.6005, L501.6710, L3300.1200, L3100.5450, L503.6550, L501.4700, L503.5510, L3130.0010, L506.1000, L3100.3425 ####[facility] [address] [facility] [place], [address](789) BETA GLOBULIN 1.0 g/dL Normal 0.7-1.3 [facility] Comment on above: Order Comment: Test( s) 287080-Zlbfwk, Serum or Plasmawas developed and its performance characteristicsdetermined by [employer]. It has not been cleared or approvedby the Food and Drug Administration.NNN Performed By: #### L 501.9520, L506.0400, L803.2200, L100.0100, L500.4050, L3300.0700, L500.4100, L800.1280, L3410.2400, L501.9985, L3100.1850, L504.2610, L3300.0100, L3400.0700, L300.3900, L3200.1100, L3000.0375, L503.6030, L3890.6005, L501.6710, L3300.1200, L3100.5450, L503.6550, L501.4700, L503.5510, L3130.0010, L506.1000, L3100.3425 ####[facility] [address] [place], [address]) GAMMA GLOBULIN 2.7 g/dL High 0.4-1.8 [facility] Comment on above: Order Comment: Test( s) 299116-Rmqarh, Serum or Plasmawas developed and its performance characteristicsdetermined by [employer]. It has not been cleared or approvedby the Food and Drug Administration.NNN Performed By: #### L 501.9520, L506.0400, L803.2200, L100.0100, L500.4050, L3300.0700, L500.4100, L800.1280, L3410.2400, L501.9985, L3100.1850, L504.2610, L3300.0100, L3400.0700, L300.3900, L3200.1100, L3000.0375, L503.6030, L3890.6005, L501.6710, L3300.1200, L3100.5450, L503.6550, L501.4700, L503.5510, L3130.0010, L506.1000, L3100.3425 ####[facility] [address] [place], [address] Globulin (S) [Mass/Vol] 4.9 g/dL Abnormal 2.2-3.9 [facility] Comment on above: Order Comment: Test( s) 950330-Lxuwtg, Serum or Plasmawas developed and its performance characteristicsdetermined by [employer]. It has not been cleared or approvedby the Food and Drug Administration.NNN Performed By: #### L 501.9520, L506.0400, L803.2200, L100.0100, L500.4050, L3300.0700, L500.4100, L800.1280, L3410.2400, L501.9985, L3100.1850, L504.2610, L3300.0100, L3400.0700, L300.3900, L3200.1100, L3000.0375, L503.6030, L3890.6005, L501.6710, L3300.1200, L3100.5450, L503.6550, L501.4700, L503.5510, L3130.0010, L506.1000, L3100.3425 ####[facility] [address] [place], [address] NITIN RESULT,S Comment Normal . [facility] Comment on above: Order Comment: Test( s) 353942-Wfkfpo, Serum or Plasmawas developed and its performance characteristicsdetermined by [employer]. It has not been cleared or approvedby the Food and Drug Administration.NNN Result Comment: No m onoclonality detected. Performed By: #### L 501.9520, L506.0400, L803.2200, L100.0100, L500.4050, L3300.0700, L500.4100, L800.1280, L3410.2400, L501.9985, L3100.1850, L504.2610, L3300.0100, L3400.0700, L300.3900, L3200.1100, L3000.0375, L503.6030, L3890.6005, L501.6710, L3300.1200, L3100.5450, L503.6550, L501.4700, L503.5510, L3130.0010, L506.1000, L3100.3425 ####[facility] [address] [facility] [place], [place], [address] IMMUNOGLOB A QN < 5 Low 87-352 [facility] Comment on above: Order Comment: Test( s) 692877-Lvyfov, Serum or Plasmawas developed and its performance characteristicsdetermined by [employer]. It has not been cleared or approvedby the Food and Drug Administration.NNN Result Comment: Resu lt confirmed on concentration. Performed By: #### L 501.9520, L506.0400, L803.2200, L100.0100, L500.4050, L3300.0700, L500.4100, L800.1280, L3410.2400, L501.9985, L3100.1850, L504.2610, L3300.0100, L3400.0700, L300.3900, L3200.1100, L3000.0375, L503.6030, L3890.6005, L501.6710, L3300.1200, L3100.5450, L503.6550, L501.4700, L503.5510, L3130.0010, L506.1000, L3100.3425 ####[facility] [address] [place], [address] IMMUNOGLOB G QN 2914 mg/dL High 586-1602 [facility] Comment on above: Order Comment: Test( s) 839487-Psfanm, Serum or Plasmawas developed and its performance characteristicsdetermined by [employer]. It has not been cleared or approvedby the Food and Drug Administration.NNN Performed By: #### L 501.9520, L506.0400, L803.2200, L100.0100, L500.4050, L3300.0700, L500.4100, L800.1280, L3410.2400, L501.9985, L3100.1850, L504.2610, L3300.0100, L3400.0700, L300.3900, L3200.1100, L3000.0375, L503.6030, L3890.6005, L501.6710, L3300.1200, L3100.5450, L503.6550, L501.4700, L503.5510, L3130.0010, L506.1000, L3100.3425 ####[facility] [address] [place], [address] IMMUNOGLOB M QN 180 mg/dL Normal 26-217 [facility] Comment on above: Order Comment: Test( s) 436826-Hjbtlj, Serum or Plasmawas developed and its performance characteristicsdetermined by [employer]. It has not been cleared or approvedby the Food and Drug Administration.NNN Performed By: #### L 501.9520, L506.0400, L803.2200, L100.0100, L500.4050, L3300.0700, L500.4100, L800.1280, L3410.2400, L501.9985, L3100.1850, L504.2610, L3300.0100, L3400.0700, L300.3900, L3200.1100, L3000.0375, L503.6030, L3890.6005, L501.6710, L3300.1200, L3100.5450, L503.6550, L501.4700, L503.5510, L3130.0010, L506.1000, L3100.3425 ####[facility] [address] [place], [address] M-Shdai Not Observed Normal Not Observed [facility] Comment on above: Order Comment: Test( s) 040503-Itevye, Serum or Plasmawas developed and its performance characteristicsdetermined by [employer]. It has not been cleared or approvedby the Food and Drug Administration.NNN Performed By: #### L 501.9520, L506.0400, L803.2200, L100.0100, L500.4050, L3300.0700, L500.4100, L800.1280, L3410.2400, L501.9985, L3100.1850, L504.2610, L3300.0100, L3400.0700, L300.3900, L3200.1100, L3000.0375, L503.6030, L3890.6005, L501.6710, L3300.1200, L3100.5450, L503.6550, L501.4700, L503.5510, L3130.0010, L506.1000, L3100.3425 ####[facility] [address] [facility] [address] [place], [place], [id number] NOTE: Comment Normal . [facility] Comment on above: Order Comment: Test( s) 570607-Zczffp, Serum or Plasmawas developed and its performance characteristicsdetermined by [employer]. It has not been cleared or approvedby the Food and Drug Administration.NNN Result Comment: Prot ein electrophoresis scan will follow via computer,mail, or mussel farmer delivery. Performed By: #### L 501.9520, L506.0400, L803.2200, L100.0100, L500.4050, L3300.0700, L500.4100, L800.1280, L3410.2400, L501.9985, L3100.1850, L504.2610, L3300.0100, L3400.0700, L300.3900, L3200.1100, L3000.0375, L503.6030, L3890.6005, L501.6710, L3300.1200, L3100.5450, L503.6550, L501.4700, L503.5510, L3130.0010, L506.1000, L3100.3425 ####[facility] [address] [place], [place], [id number] Protein [Mass/Vol] 8.1 g/dL Normal 6.0-8.[address] [facility] Comment on above: Order Comment: Test( s) 373909-Sdgaja, Serum or Plasmawas developed and its performance characteristicsdetermined by [employer]. It has not been cleared or approvedby the Food and Drug Administration.NNN Performed By: #### L 501.9520, L506.0400, L803.2200, L100.0100, L500.4050, L3300.0700, L500.4100, L800.1280, L3410.2400, L501.9985, L3100.1850, L504.2610, L3300.0100, L3400.0700, L300.3900, L3200.1100, L3000.0375, L503.6030, L3890.6005, L501.6710, L3300.1200, L3100.5450, L503.6550, L501.4700, L503.5510, L3130.0010, L506.1000, L3100.3425 ####[facility] [address] [place], [address] Immunoglobulins G/A/M/Logan IMMUNOGLOB E QN 4 IU/mL Low 6-495 [facility] Comment on above: Order Comment: Test( s) 364911-Hqtgck, Serum or Plasmawas developed and its performance characteristicsdetermined by [employer]. It has not been cleared or approvedby the Food and Drug Administration.NNN Performed By: #### L 501.9520, L506.0400, L803.2200, L100.0100, L500.4050, L3300.0700, L500.4100, L800.1280, L3410.2400, L501.9985, L3100.1850, L504.2610, L3300.0100, L3400.0700, L300.3900, L3200.1100, L3000.0375, L503.6030, L3890.6005, L501.6710, L3300.1200, L3100.5450, L503.6550, L501.4700, L503.5510, L3130.0010, L506.1000, L3100.3425 ####[facility] [address] [facility] [place], [address] [place] Lambda Light Chainson 05-14-2024 FR KAPPA LT CHN 98.4 mg/L Abnormal 3.3-19.4 [facility] Comment on above: Order Comment: Test( s) 644197-Dlhcav, Serum or Plasmawas developed and its performance characteristicsdetermined by [employer]. It has not been cleared or approvedby the Food and Drug Administration.NNN Performed By: #### L 501.9520, L506.0400, L803.2200, L100.0100, L500.4050, L3300.0700, L500.4100, L800.1280, L3410.2400, L501.9985, L3100.1850, L504.2610, L3300.0100, L3400.0700, L300.3900, L3200.1100, L3000.0375, L503.6030, L3890.6005, L501.6710, L3300.1200, L3100.5450, L503.6550, L501.4700, L503.5510, L3130.0010, L506.1000, L3100.3425 ####[facility] [address] [place], [place], [id number] FR LAMBDA LT CH 61.7 mg/L Abnormal 5.7-26.3 [facility] Comment on above: Order Comment: Test( s) 494728-Whnpxx, Serum or Plasmawas developed and its performance characteristicsdetermined by [employer]. It has not been cleared or approvedby the Food and Drug Administration.NNN Performed By: #### L 501.9520, L506.0400, L803.2200, L100.0100, L500.4050, L3300.0700, L500.4100, L800.1280, L3410.2400, L501.9985, L3100.1850, L504.2610, L3300.0100, L3400.0700, L300.3900, L3200.1100, L3000.0375, L503.6030, L3890.6005, L501.6710, L3300.1200, L3100.5450, L503.6550, L501.4700, L503.5510, L3130.0010, L506.1000, L3100.3425 ####[facility] [address] [place], [address] KAPPA/LAMBDA % 1.59 Normal 0.26-1.65 [facility] Comment on above: Order Comment: Test( s) 514805-Uawiej, Serum or Plasmawas developed and its performance characteristicsdetermined by [employer]. It has not been cleared or approvedby the Food and Drug Administration.NNN Performed By: #### L 501.9520, L506.0400, L803.2200, L100.0100, L500.4050, L3300.0700, L500.4100, L800.1280, L3410.2400, L501.9985, L3100.1850, L504.2610, L3300.0100, L3400.0700, L300.3900, L3200.1100, L3000.0375, L503.6030, L3890.6005, L501.6710, L3300.1200, L3100.5450, L503.6550, L501.4700, L503.5510, L3130.0010, L506.1000, L3100.3425 ####[facility] [address] [place], [address] Gastroenterology Visit Repor ton 05-12-2024 Gastroenterology Visit Report Normal [facility] .GFRon 05-11-2024 GFR Non- 61 ml/min/1.73sqm Normal [facility] Comment on above: Result Comment: GFR Population [...] MP, ADIFF, CBC, PBNP, GFR, ANEU #### [address] [address] GFR 73 ml/min/1.73sqm Normal [facility] Comment on above: Result Comment: GFR Population [...] MP, ADIFF, CBC, PBNP, GFR, ANEU #### [address] [place], [place] [address] JOSTIN w/ Reflex Mult Confirmon 05-11-2024 JOSTIN TABLE TNP Normal [facility] Comment on above: Performed By: #### L 501.9520, L506.0400, L803.2200, L100.0100, L500.4050, L3300.0700, L500.4100, L800.1280, L3410.2400, L501.9985, L3100.1850, L504.2610, L3300.0100, L3400.0700, L300.3900, L3200.1100, L3000.0375, L503.6030, L3890.6005, L501.6710, L3300.1200, L3100.5450, L503.6550, L501.4700, L503.5510, L3130.0010, L506.1000, L3100.3425 ####[facility] [address] [facility] [place], [address] ANTI-CENT B AB TNP Normal [facility] Comment on above: Performed By: #### L 501.9520, L506.0400, L803.2200, L100.0100, L500.4050, L3300.0700, L500.4100, L800.1280, L3410.2400, L501.9985, L3100.1850, L504.2610, L3300.0100, L3400.0700, L300.3900, L3200.1100, L3000.0375, L503.6030, L3890.6005, L501.6710, L3300.1200, L3100.5450, L503.6550, L501.4700, L503.5510, L3130.0010, L506.1000, L3100.3425 ####[facility] [address] [facility] [place], [address] ANTI-CHEYENNE-1 TNP Normal [facility] Comment on above: Performed By: #### L 501.9520, L506.0400, L803.2200, L100.0100, L500.4050, L3300.0700, L500.4100, L800.1280, L3410.2400, L501.9985, L3100.1850, L504.2610, L3300.0100, L3400.0700, L300.3900, L3200.1100, L3000.0375, L503.6030, L3890.6005, L501.6710, L3300.1200, L3100.5450, L503.6550, L501.4700, L503.5510, L3130.0010, L506.1000, L3100.3425 ####[facility] [address] [facility] [place], [place], [address] ANTISCLERODERM TNP Normal [facility] Comment on above: Performed By: #### L 501.9520, L506.0400, L803.2200, L100.0100, L500.4050, L3300.0700, L500.4100, L800.1280, L3410.2400, L501.9985, L3100.1850, L504.2610, L3300.0100, L3400.0700, L300.3900, L3200.1100, L3000.0375, L503.6030, L3890.6005, L501.6710, L3300.1200, L3100.5450, L503.6550, L501.4700, L503.5510, L3130.0010, L506.1000, L3100.3425 ####[facility] [address] [facility] [place], [place], [id number] DRAFTING CLERK Ab TNP [facility] Comment on above: Performed By: #### L 501.9520, L506.0400, L803.2200, L100.0100, L500.4050, L3300.0700, L500.4100, L800.1280, L3410.2400, L501.9985, L3100.1850, L504.2610, L3300.0100, L3400.0700, L300.3900, L3200.1100, L3000.0375, L503.6030, L3890.6005, L501.6710, L3300.1200, L3100.5450, L503.6550, L501.4700, L503.5510, L3130.0010, L506.1000, L3100.3425 ####[facility] [address] [place], [place], [address] NORIEGA Ab TNP Normal [facility] Comment on above: Performed By: #### L 501.9520, L506.0400, L803.2200, L100.0100, L500.4050, L3300.0700, L500.4100, L800.1280, L3410.2400, L501.9985, L3100.1850, L504.2610, L3300.0100, L3400.0700, L300.3900, L3200.1100, L3000.0375, L503.6030, L3890.6005, L501.6710, L3300.1200, L3100.5450, L503.6550, L501.4700, L503.5510, L3130.0010, L506.1000, L3100.3425 ####[facility] [address] [facility] [place], [place], [address] ANTI-DNA (DS)AB TNP [facility] Comment on above: Performed By: #### L 501.9520, L506.0400, L803.2200, L100.0100, L500.4050, L3300.0700, L500.4100, L800.1280, L3410.2400, L501.9985, L3100.1850, L504.2610, L3300.0100, L3400.0700, L300.3900, L3200.1100, L3000.0375, L503.6030, L3890.6005, L501.6710, L3300.1200, L3100.5450, L503.6550, L501.4700, L503.5510, L3130.0010, L506.1000, L3100.3425 ####[facility] [address] [facility] [place], [place], [id number] ANTI-SS-A TNP Normal [facility] Comment on above: Performed By: #### L 501.9520, L506.0400, L803.2200, L100.0100, L500.4050, L3300.0700, L500.4100, L800.1280, L3410.2400, L501.9985, L3100.1850, L504.2610, L3300.0100, L3400.0700, L300.3900, L3200.1100, L3000.0375, L503.6030, L3890.6005, L501.6710, L3300.1200, L3100.5450, L503.6550, L501.4700, L503.5510, L3130.0010, L506.1000, L3100.3425 ####[facility] [address] [place], [address] ANTI-SS-B TNP Normal [facility] Comment on above: Performed By: #### L 501.9520, L506.0400, L803.2200, L100.0100, L500.4050, L3300.0700, L500.4100, L800.1280, L3410.2400, L501.9985, L3100.1850, L504.2610, L3300.0100, L3400.0700, L300.3900, L3200.1100, L3000.0375, L503.6030, L3890.6005, L501.6710, L3300.1200, L3100.5450, L503.6550, L501.4700, L503.5510, L3130.0010, L506.1000, L3100.3425 ####[facility] [address] [place], [address] ANTICHROMATIN TNP Normal [facility] Comment on above: Performed By: #### L 501.9520, L506.0400, L803.2200, L100.0100, L500.4050, L3300.0700, L500.4100, L800.1280, L3410.2400, L501.9985, L3100.1850, L504.2610, L3300.0100, L3400.0700, L300.3900, L3200.1100, L3000.0375, L503.6030, L3890.6005, L501.6710, L3300.1200, L3100.5450, L503.6550, L501.4700, L503.5510, L3130.0010, L506.1000, L3100.3425 ####[facility] [address] [facility] [place], [place], [id number] Anti-Mitochondrial ABon 04-22 ANTIMITOCHON AB <20.0 Normal 0.0-20.0 [facility] Comment on above: Result Comment: Nega tive 0.0 - 20.0 Equivocal 20.1 - 24.9 Positive >24.9Mitochondrial (M2) Antibodies are found in 90-96% ofpatients with primary biliary cirrhosis. Performed By: #### L 501.9520, L506.0400, L803.2200, L100.0100, L500.4050, L3300.0700, L500.4100, L800.1280, L3410.2400, L501.9985, L3100.1850, L504.2610, L3300.0100, L3400.0700, L300.3900, L3200.1100, L3000.0375, L503.6030, L3890.6005, L501.6710, L3300.1200, L3100.5450, L503.6550, L501.4700, L503.5510, L3130.0010, L506.1000, L3100.3425 ####[facility] [address] [facility] [place], [place], [id number] CMPon 05-11-2024 Albumin Level 3.5 G/dL Normal 3.5-5.0 [facility] Comment on above: Performed By: #### C MP, ADIFF, CBC, PBNP, GFR, ANEU #### [address] [address] Albumin/Globulin [Mass ratio] 0.7 {ratio} Low 1.1-2.5 [facility] Comment on above: Performed By: #### C MP, ADIFF, CBC, PBNP, GFR, ANEU #### [address] [address] ALP [Catalytic activity/Vol] 180 U/L High 40-135 [facility] Comment on above: Performed By: #### C MP, ADIFF, CBC, PBNP, GFR, ANEU #### [address] [address] ALT [Catalytic activity/Vol] 34 U/L Normal 14-59 [facility] Comment on above: Performed By: #### C MP, ADIFF, CBC, PBNP, GFR, ANEU #### [address] [address] AST [Catalytic activity/Vol] 36 U/L Normal 10-40 [facility] Comment on above: Performed By: #### C MP, ADIFF, CBC, PBNP, GFR, ANEU #### [address] [address] Bili Total 0.5 mg/dL Normal 0.2-1.0 [facility] Comment on above: Result Comment: Use of this assay is not recommended for patients undergoing treatment with eltrombopag due to the potential for falsely elevated results. Performed By: #### C MP, ADIFF, CBC, PBNP, GFR, ANEU #### [address] [address] BUN/Creatinine Ratio 17 ratio Normal 7-27 [facility] Comment on above: Performed By: #### C MP, ADIFF, CBC, PBNP, GFR, ANEU #### [address] [address] Calcium [Mass/Vol] 9.4 mg/dL Normal 8.4-10.2 [facility] Comment on above: Performed By: #### C MP, ADIFF, CBC, PBNP, GFR, ANEU #### [address] [address] Chloride [Moles/Vol] 96 mmol/L Low 98-107 [facility] Comment on above: Performed By: #### C MP, ADIFF, CBC, PBNP, GFR, ANEU #### [address] [address] CO2 [Moles/Vol] 34 mmol/L High 22-29 [facility] Comment on above: Performed By: #### C MP, ADIFF, CBC, PBNP, GFR, ANEU #### [place] [address] Creatinine [Mass/Vol] 0.95 mg/dL Normal 0.55-1.02 [facility] Comment on above: Result Comment: Test ing performed on Siemens Dimension EXL analyzer using a modified kinetic Avila technique. Performed By: #### C MP, ADIFF, CBC, PBNP, GFR, ANEU #### [address] [address] Electrolyte Balance 6.0 mEq/L Normal 4.0-15.0 [facility] Comment on above: Performed By: #### C MP, ADIFF, CBC, PBNP, GFR, ANEU #### [address] [address] Globulin 5.2 G/dL Normal [facility] Comment on above: Performed By: #### C MP, ADIFF, CBC, PBNP, GFR, ANEU #### [address] [address] Glucose [Mass/Vol] 157 mg/dL High 70-105 [facility] Comment on above: Performed By: #### C MP, ADIFF, CBC, PBNP, GFR, ANEU #### [place] [address] [place] [address] Potassium [Moles/Vol] 4.8 mmol/L Normal 3.5-5.1 [facility] Comment on above: Performed By: #### C MP, ADIFF, CBC, PBNP, GFR, ANEU #### [address] [place], [place] [address] Sodium [Moles/Vol] 136 mmol/L Normal 136-145 [facility] Comment on above: Performed By: #### C MP, ADIFF, CBC, PBNP, GFR, ANEU #### [address] [place], [place] [address] Total Protein 8.7 G/dL High 6.4-8.2 [facility] Comment on above: Performed By: #### C MP, ADIFF, CBC, PBNP, GFR, ANEU #### [address] [address] Urea nitrogen [Mass/Vol] 16 mg/dL Normal 7-18 [facility] Comment on above: Performed By: #### C MP, ADIFF, CBC, PBNP, GFR, ANEU #### [address] [address] HIV - Hon 05-11-2024 HIV Non-Reactive Normal Nonreactive [facility] Comment on above: Performed By: #### L 501.9520, L506.0400, L803.2200, L100.0100, L500.4050, L3300.0700, L500.4100, L800.1280, L3410.2400, L501.9985, L3100.1850, L504.2610, L3300.0100, L3400.0700, L300.3900, L3200.1100, L3000.0375, L503.6030, L3890.6005, L501.6710, L3300.1200, L3100.5450, L503.6550, L501.4700, L503.5510, L3130.0010, L506.1000, L3100.3425 ####[facility] [address] [place], [address] LABORATORYOrdered By: SYSTEM SYSTEM on 05-11-2024 Albumin [...] Cholesterol [Mass/Vol] 191 mg/dL Normal 0-200 [facility] Comment on above: Result Comment: Chol esterol Reference Interval: Less than 200 Desirable 200-239 Borderline high risk 240 and above High risk Performed By: #### C MP, ADIFF, CBC, PBNP, GFR, ANEU #### [address] [address] Cholesterol in HDL [Mass/Vol] 38 mg/dL Low 40-60 [facility] Comment on above: Performed By: #### C MP, ADIFF, CBC, PBNP, GFR, ANEU #### [address] [address] Cholesterol in LDL [Mass/Vol] 91 mg/dL Normal 0-130 [facility] Comment on above: Performed By: #### C MP, ADIFF, CBC, PBNP, GFR, ANEU #### [address] [address] Triglyceride [Mass/Vol] 311 mg/dL High 0-150 [facility] Comment on above: Result Comment: Trig lyceride Reference Interval: Less than 150 Normal 150-199 Borderline high risk 200-499 High risk 500 or higher Very high risk Performed By: #### C MP, ADIFF, CBC, PBNP, GFR, ANEU #### [address] [address] Vitamin D,25 Hydroxyon 05-11 Vitamin D 25-OH 11.2 ng/mL Normal [facility] Comment on above: Result Comment: Jessica [...] L3100.5450, L503.6550, L501.4700, L503.5510, L3130.0010, L506.1000, L3100.3425 ####[facility] [address] [facility] [place], [place], [id number] Ammoniaon 05-09-2024 Ammonia (P) [Moles/Vol] 23.0 umol/L Normal 11-32 [facility] Comment on above: Performed By: #### L 501.9520, L506.0400, L803.2200, L100.0100, L500.4050, L3300.0700, L500.4100, L800.1280, L3410.2400, L501.9985, L3100.1850, L504.2610, L3300.0100, L3400.0700, L300.3900, L3200.1100, L3000.0375, L503.6030, L3890.6005, L501.6710, L3300.1200, L3100.5450, L503.6550, L501.4700, L503.5510, L3130.0010, L506.1000, L3100.3425 ####[facility] [address] [facility] [place], [place], [id number] Bilirubin, Directon 05-09-20 24 Bilirubin.direct [Mass/Vol] 0.10 mg/dL Normal 0.00-0.30 [facility] Comment on above: Order Comment: N1 Performed By: #### L 501.9520, L506.0400, L803.2200, L100.0100, L500.4050, L3300.0700, L500.4100, L800.1280, L3410.2400, L501.9985, L3100.1850, L504.2610, L3300.0100, L3400.0700, L300.3900, L3200.1100, L3000.0375, L503.6030, L3890.6005, L501.6710, L3300.1200, L3100.5450, L503.6550, L501.4700, L503.5510, L3130.0010, L506.1000, L3100.3425 ####[facility] [address] [facility] [place], [place], [id number] CBC W/Diff, Automatedon 10- Absolute Lymph 2.80 X10 3/uL Normal 0.83-4.51 [facility] Comment on above: Performed By: #### L 501.9520, L506.0400, L803.2200, L100.0100, L500.4050, L3300.0700, L500.4100, L800.1280, L3410.2400, L501.9985, L3100.1850, L504.2610, L3300.0100, L3400.0700, L300.3900, L3200.1100, L3000.0375, L503.6030, L3890.6005, L501.6710, L3300.1200, L3100.5450, L503.6550, L501.4700, L503.5510, L3130.0010, L506.1000, L3100.3425 ####[facility] [address] [facility] [place], [place], [id number] Absolute Neut 5.4 X10 3/uL Normal 2.0-7.7 [facility] Comment on above: Performed By: #### L 501.9520, L506.0400, L803.2200, L100.0100, L500.4050, L3300.0700, L500.4100, L800.1280, L3410.2400, L501.9985, L3100.1850, L504.2610, L3300.0100, L3400.0700, L300.3900, L3200.1100, L3000.0375, L503.6030, L3890.6005, L501.6710, L3300.1200, L3100.5450, L503.6550, L501.4700, L503.5510, L3130.0010, L506.1000, L3100.3425 ####[facility] [address] [facility] [place], [place], [phone]) Basophils/100 WBC (Bld) 0.9 % Normal 0-1 [facility] Comment on above: Performed By: #### L 501.9520, L506.0400, L803.2200, L100.0100, L500.4050, L3300.0700, L500.4100, L800.1280, L3410.2400, L501.9985, L3100.1850, L504.2610, L3300.0100, L3400.0700, L300.3900, L3200.1100, L3000.0375, L503.6030, L3890.6005, L501.6710, L3300.1200, L3100.5450, L503.6550, L501.4700, L503.5510, L3130.0010, L506.1000, L3100.3425 ####[facility] [address] [facility] [place], [place], [id number] Eosinophils/100 WBC (Bld) 3.3 % Normal 0-5 [facility] Comment on above: Performed By: #### L 501.9520, L506.0400, L803.2200, L100.0100, L500.4050, L3300.0700, L500.4100, L800.1280, L3410.2400, L501.9985, L3100.1850, L504.2610, L3300.0100, L3400.0700, L300.3900, L3200.1100, L3000.0375, L503.6030, L3890.6005, L501.6710, L3300.1200, L3100.5450, L503.6550, L501.4700, L503.5510, L3130.0010, L506.1000, L3100.3425 ####[facility] [address] [facility] [place], [place], [id number] Erythrocyte distribution width (RBC) [Ratio] 15.3 % High 11.6-14.6 [facility] Comment on above: Performed By: #### L 501.9520, L506.0400, L803.2200, L100.0100, L500.4050, L3300.0700, L500.4100, L800.1280, L3410.2400, L501.9985, L3100.1850, L504.2610, L3300.0100, L3400.0700, L300.3900, L3200.1100, L3000.0375, L503.6030, L3890.6005, L501.6710, L3300.1200, L3100.5450, L503.6550, L501.4700, L503.5510, L3130.0010, L506.1000, L3100.3425 ####[facility] [address] [facility] [place], [place], [id number] Hematocrit (Bld) [Volume fraction] 37.6 % Normal 37-47 [facility] Comment on above: Performed By: #### L 501.9520, L506.0400, L803.2200, L100.0100, L500.4050, L3300.0700, L500.4100, L800.1280, L3410.2400, L501.9985, L3100.1850, L504.2610, L3300.0100, L3400.0700, L300.3900, L3200.1100, L3000.0375, L503.6030, L3890.6005, L501.6710, L3300.1200, L3100.5450, L503.6550, L501.4700, L503.5510, L3130.0010, L506.1000, L3100.3425 ####[facility] [address] [facility] [place], [place], [id number] Hemoglobin (Bld) [Mass/Vol] 11.2 g/dL Low 12.0-15.0 [facility] Comment on above: Performed By: #### L 501.9520, L506.0400, L803.2200, L100.0100, L500.4050, L3300.0700, L500.4100, L800.1280, L3410.2400, L501.9985, L3100.1850, L504.2610, L3300.0100, L3400.0700, L300.3900, L3200.1100, L3000.0375, L503.6030, L3890.6005, L501.6710, L3300.1200, L3100.5450, L503.6550, L501.4700, L503.5510, L3130.0010, L506.1000, L3100.3425 ####[facility] [address] [facility] [place], [place], [id number] IG% 1.200 High 0.0-0.9 [facility] Comment on above: Result Comment: IG% - Immature Granulocytes (promyelocytes, myelocytes andmetamyelocytes) > 1% indicates that a LEFT SHIFT is Present. Performed By: #### L 501.9520, L506.0400, L803.2200, L100.0100, L500.4050, L3300.0700, L500.4100, L800.1280, L3410.2400, L501.9985, L3100.1850, L504.2610, L3300.0100, L3400.0700, L300.3900, L3200.1100, L3000.0375, L503.6030, L3890.6005, L501.6710, L3300.1200, L3100.5450, L503.6550, L501.4700, L503.5510, L3130.0010, L506.1000, L3100.3425 ####[facility] [address] [facility] [place], [address] Lymphocytes/100 WBC (Bld) 30.9 % Normal 19-41 [facility] Comment on above: Performed By: #### L 501.9520, L506.0400, L803.2200, L100.0100, L500.4050, L3300.0700, L500.4100, L800.1280, L3410.2400, L501.9985, L3100.1850, L504.2610, L3300.0100, L3400.0700, L300.3900, L3200.1100, L3000.0375, L503.6030, L3890.6005, L501.6710, L3300.1200, L3100.5450, L503.6550, L501.4700, L503.5510, L3130.0010, L506.1000, L3100.3425 ####[facility] [address] [facility] [place], [address] MCH (RBC) [Entitic mass] 24.8 pg Low 27.0-32.0 [facility] Comment on above: Performed By: #### L 501.9520, L506.0400, L803.2200, L100.0100, L500.4050, L3300.0700, L500.4100, L800.1280, L3410.2400, L501.9985, L3100.1850, L504.2610, L3300.0100, L3400.0700, L300.3900, L3200.1100, L3000.0375, L503.6030, L3890.6005, L501.6710, L3300.1200, L3100.5450, L503.6550, L501.4700, L503.5510, L3130.0010, L506.1000, L3100.3425 ####[facility] [address] [place], [address] MCHC (RBC) [Mass/Vol] 29.8 g/dL Low 32-36 [facility] Comment on above: Performed By: #### L 501.9520, L506.0400, L803.2200, L100.0100, L500.4050, L3300.0700, L500.4100, L800.1280, L3410.2400, L501.9985, L3100.1850, L504.2610, L3300.0100, L3400.0700, L300.3900, L3200.1100, L3000.0375, L503.6030, L3890.6005, L501.6710, L3300.1200, L3100.5450, L503.6550, L501.4700, L503.5510, L3130.0010, L506.1000, L3100.3425 ####[facility] [address] [place], [place], [id number] MCV (RBC) [Entitic vol] 83.2 fL Normal 81-99 [facility] Comment on above: Performed By: #### L 501.9520, L506.0400, L803.2200, L100.0100, L500.4050, L3300.0700, L500.4100, L800.1280, L3410.2400, L501.9985, L3100.1850, L504.2610, L3300.0100, L3400.0700, L300.3900, L3200.1100, L3000.0375, L503.6030, L3890.6005, L501.6710, L3300.1200, L3100.5450, L503.6550, L501.4700, L503.5510, L3130.0010, L506.1000, L3100.3425 ####[facility] [address] [place], [place], [phone](411) Monocytes/100 WBC (Bld) 4.4 % Normal 0-10 [facility] Comment on above: Performed By: #### L 501.9520, L506.0400, L803.2200, L100.0100, L500.4050, L3300.0700, L500.4100, L800.1280, L3410.2400, L501.9985, L3100.1850, L504.2610, L3300.0100, L3400.0700, L300.3900, L3200.1100, L3000.0375, L503.6030, L3890.6005, L501.6710, L3300.1200, L3100.5450, L503.6550, L501.4700, L503.5510, L3130.0010, L506.1000, L3100.3425 ####[facility] [address] [facility] [employer] [place], [place], [phone](213) Neutrophils/100 WBC (Bld) 59.3 % Normal 47-70 [facility] Comment on above: Performed By: #### L 501.9520, L506.0400, L803.2200, L100.0100, L500.4050, L3300.0700, L500.4100, L800.1280, L3410.2400, L501.9985, L3100.1850, L504.2610, L3300.0100, L3400.0700, L300.3900, L3200.1100, L3000.0375, L503.6030, L3890.6005, L501.6710, L3300.1200, L3100.5450, L503.6550, L501.4700, L503.5510, L3130.0010, L506.1000, L3100.3425 ####[facility] [address] [facility] [place], [place], [phone](102) Nucleated RBC (Bld) [#/Vol] 0 10*3/uL Normal 0-5 [facility] Comment on above: Performed By: #### L 501.9520, L506.0400, L803.2200, L100.0100, L500.4050, L3300.0700, L500.4100, L800.1280, L3410.2400, L501.9985, L3100.1850, L504.2610, L3300.0100, L3400.0700, L300.3900, L3200.1100, L3000.0375, L503.6030, L3890.6005, L501.6710, L3300.1200, L3100.5450, L503.6550, L501.4700, L503.5510, L3130.0010, L506.1000, L3100.3425 ####[facility] [address] [facility] [place], [place], [id number] Platelet mean volume (Bld) [Entitic vol] 10.2 fL Normal 6.2-12.0 [facility] Comment on above: Performed By: #### L 501.9520, L506.0400, L803.2200, L100.0100, L500.4050, L3300.0700, L500.4100, L800.1280, L3410.2400, L501.9985, L3100.1850, L504.2610, L3300.0100, L3400.0700, L300.3900, L3200.1100, L3000.0375, L503.6030, L3890.6005, L501.6710, L3300.1200, L3100.5450, L503.6550, L501.4700, L503.5510, L3130.0010, L506.1000, L3100.3425 ####[facility] [address] [facility] [place], [place], [phone] Platelets (Bld) [#/Vol] 271 10*3/uL Normal 150-450 [facility] Comment on above: Performed By: #### L 501.9520, L506.0400, L803.2200, L100.0100, L500.4050, L3300.0700, L500.4100, L800.1280, L3410.2400, L501.9985, L3100.1850, L504.2610, L3300.0100, L3400.0700, L300.3900, L3200.1100, L3000.0375, L503.6030, L3890.6005, L501.6710, L3300.1200, L3100.5450, L503.6550, L501.4700, L503.5510, L3130.0010, L506.1000, L3100.3425 ####[facility] [address] [facility] [address] [place], [place], [id number] RBC (Bld) [#/Vol] 4.52 10*6/uL Normal 4.2-5.4 [facility] Comment on above: Performed By: #### L 501.9520, L506.0400, L803.2200, L100.0100, L500.4050, L3300.0700, L500.4100, L800.1280, L3410.2400, L501.9985, L3100.1850, L504.2610, L3300.0100, L3400.0700, L300.3900, L3200.1100, L3000.0375, L503.6030, L3890.6005, L501.6710, L3300.1200, L3100.5450, L503.6550, L501.4700, L503.5510, L3130.0010, L506.1000, L3100.3425 ####[facility] [address] [place], [place], [id number] RDW SD 46.5 fl High 35.1-43.9 [facility] Comment on above: Performed By: #### L 501.9520, L506.0400, L803.2200, L100.0100, L500.4050, L3300.0700, L500.4100, L800.1280, L3410.2400, L501.9985, L3100.1850, L504.2610, L3300.0100, L3400.0700, L300.3900, L3200.1100, L3000.0375, L503.6030, L3890.6005, L501.6710, L3300.1200, L3100.5450, L503.6550, L501.4700, L503.5510, L3130.0010, L506.1000, L3100.3425 ####[facility] [address] [facility] [place], [place], [phone] WBC (Bld) [#/Vol] 9.1 10*3/uL Normal 4.4-11.[address] [facility] Comment on above: Performed By: #### L 501.9520, L506.0400, L803.2200, L100.0100, L500.4050, L3300.0700, L500.4100, L800.1280, L3410.2400, L501.9985, L3100.1850, L504.2610, L3300.0100, L3400.0700, L300.3900, L3200.1100, L3000.0375, L503.6030, L3890.6005, L501.6710, L3300.1200, L3100.5450, L503.6550, L501.4700, L503.5510, L3130.0010, L506.1000, L3100.3425 ####[facility] [address] [facility] [place], [place], [address] CRPon 05-09-2024 C-REACTIVE PROT 10.20 mg/L High 0.0-3.0 [facility] Comment on above: Order Comment: N1 [...] L3100.5450, L503.6550, L501.4700, L503.5510, L3130.0010, L506.1000, L3100.3425 ####[facility] [address] [facility] [place], [address] Comprehensive Metabolic [facility] 05-09-2024 Albumin [Mass/Vol] 3.1 g/dL Low 3.2-5.[address] [facility] Comment on above: Order Comment: N1 Performed By: #### L 501.9520, L506.0400, L803.2200, L100.0100, L500.4050, L3300.0700, L500.4100, L800.1280, L3410.2400, L501.9985, L3100.1850, L504.2610, L3300.0100, L3400.0700, L300.3900, L3200.1100, L3000.0375, L503.6030, L3890.6005, L501.6710, L3300.1200, L3100.5450, L503.6550, L501.4700, L503.5510, L3130.0010, L506.1000, L3100.3425 ####[facility] [address] [facility] [place], [place], [id number] Albumin/Globulin [Mass ratio] 0.6 {ratio} Low 0.9-2.4 [facility] Comment on above: Order Comment: N1 Performed By: #### L 501.9520, L506.0400, L803.2200, L100.0100, L500.4050, L3300.0700, L500.4100, L800.1280, L3410.2400, L501.9985, L3100.1850, L504.2610, L3300.0100, L3400.0700, L300.3900, L3200.1100, L3000.0375, L503.6030, L3890.6005, L501.6710, L3300.1200, L3100.5450, L503.6550, L501.4700, L503.5510, L3130.0010, L506.1000, L3100.3425 ####[facility] [address] [facility] [place], [place], [id number] ALK P 154 U/L High 45-117 [facility] Comment on above: Order Comment: N1 Performed By: #### L 501.9520, L506.0400, L803.2200, L100.0100, L500.4050, L3300.0700, L500.4100, L800.1280, L3410.2400, L501.9985, L3100.1850, L504.2610, L3300.0100, L3400.0700, L300.3900, L3200.1100, L3000.0375, L503.6030, L3890.6005, L501.6710, L3300.1200, L3100.5450, L503.6550, L501.4700, L503.5510, L3130.0010, L506.1000, L3100.3425 ####[facility] [address] [facility] [place], [place], [id number] ALT [Catalytic activity/Vol] 36 U/L Normal 13-56 [facility] Comment on above: Order Comment: N1 Performed By: #### L 501.9520, L506.0400, L803.2200, L100.0100, L500.4050, L3300.0700, L500.4100, L800.1280, L3410.2400, L501.9985, L3100.1850, L504.2610, L3300.0100, L3400.0700, L300.3900, L3200.1100, L3000.0375, L503.6030, L3890.6005, L501.6710, L3300.1200, L3100.5450, L503.6550, L501.4700, L503.5510, L3130.0010, L506.1000, L3100.3425 ####[facility] [address] [place], [address] AST [Catalytic activity/Vol] 41 U/L High 15-37 [facility] Comment on above: Order Comment: N1 Performed By: #### L 501.9520, L506.0400, L803.2200, L100.0100, L500.4050, L3300.0700, L500.4100, L800.1280, L3410.2400, L501.9985, L3100.1850, L504.2610, L3300.0100, L3400.0700, L300.3900, L3200.1100, L3000.0375, L503.6030, L3890.6005, L501.6710, L3300.1200, L3100.5450, L503.6550, L501.4700, L503.5510, L3130.0010, L506.1000, L3100.3425 ####[facility] [address] [place], [place], [id number] Bilirubin [Mass/Vol] 0.40 mg/dL Normal 0.20-1.00 [facility] Comment on above: Order Comment: N1 Result Comment: For patients on eltrombopag therapy, use of Dimension Fitzpatrick TBIL is not recommended. Performed By: #### L 501.9520, L506.0400, L803.2200, L100.0100, L500.4050, L3300.0700, L500.4100, L800.1280, L3410.2400, L501.9985, L3100.1850, L504.2610, L3300.0100, L3400.0700, L300.3900, L3200.1100, L3000.0375, L503.6030, L3890.6005, L501.6710, L3300.1200, L3100.5450, L503.6550, L501.4700, L503.5510, L3130.0010, L506.1000, L3100.3425 ####[facility] [address] [place], [place], [id number] BUN/CRE 25.7 RATIO High 10-20 [facility] Comment on above: Order Comment: N1 Performed By: #### L 501.9520, L506.0400, L803.2200, L100.0100, L500.4050, L3300.0700, L500.4100, L800.1280, L3410.2400, L501.9985, L3100.1850, L504.2610, L3300.0100, L3400.0700, L300.3900, L3200.1100, L3000.0375, L503.6030, L3890.6005, L501.6710, L3300.1200, L3100.5450, L503.6550, L501.4700, L503.5510, L3130.0010, L506.1000, L3100.3425 ####[facility] [address] [place], [place], [address] CA,Total 9.8 mg/dL Normal 8.5-10.1 [facility] Comment on above: Order Comment: N1 Performed By: #### L 501.9520, L506.0400, L803.2200, L100.0100, L500.4050, L3300.0700, L500.4100, L800.1280, L3410.2400, L501.9985, L3100.1850, L504.2610, L3300.0100, L3400.0700, L300.3900, L3200.1100, L3000.0375, L503.6030, L3890.6005, L501.6710, L3300.1200, L3100.5450, L503.6550, L501.4700, L503.5510, L3130.0010, L506.1000, L3100.3425 ####[facility] [address] [facility] [place], [place], [address] Chloride [Moles/Vol] 100 mmol/L Normal 98-107 [facility] Comment on above: Order Comment: N1 Performed By: #### L 501.9520, L506.0400, L803.2200, L100.0100, L500.4050, L3300.0700, L500.4100, L800.1280, L3410.2400, L501.9985, L3100.1850, L504.2610, L3300.0100, L3400.0700, L300.3900, L3200.1100, L3000.0375, L503.6030, L3890.6005, L501.6710, L3300.1200, L3100.5450, L503.6550, L501.4700, L503.5510, L3130.0010, L506.1000, L3100.3425 ####[facility] [address] [facility] [place], [place], [address] CO2 [Moles/Vol] 30.0 mmol/L Normal 21.0-32.0 [facility] Comment on above: Order Comment: N1 Performed By: #### L 501.9520, L506.0400, L803.2200, L100.0100, L500.4050, L3300.0700, L500.4100, L800.1280, L3410.2400, L501.9985, L3100.1850, L504.2610, L3300.0100, L3400.0700, L300.3900, L3200.1100, L3000.0375, L503.6030, L3890.6005, L501.6710, L3300.1200, L3100.5450, L503.6550, L501.4700, L503.5510, L3130.0010, L506.1000, L3100.3425 ####[facility] [address] [place], [address] Creatinine [Mass/Vol] 0.86 mg/dL Normal 0.55-1.02 [facility] Comment on above: Order Comment: N1 Result Comment: The validity of the calculated GFR GFRAA in patients over70 years has not been determined. Clinical correlation isessential. Performed By: #### L 501.9520, L506.0400, L803.2200, L100.0100, L500.4050, L3300.0700, L500.4100, L800.1280, L3410.2400, L501.9985, L3100.1850, L504.2610, L3300.0100, L3400.0700, L300.3900, L3200.1100, L3000.0375, L503.6030, L3890.6005, L501.6710, L3300.1200, L3100.5450, L503.6550, L501.4700, L503.5510, L3130.0010, L506.1000, L3100.3425 ####[facility] [address] [place], [place], [address] EST GFR - AA 88 mL/min Normal >60 [facility] Comment on above: Order Comment: N1 Result Comment: Afri can Tajik GFR Calc Performed By: #### L 501.9520, L506.0400, L803.2200, L100.0100, L500.4050, L3300.0700, L500.4100, L800.1280, L3410.2400, L501.9985, L3100.1850, L504.2610, L3300.0100, L3400.0700, L300.3900, L3200.1100, L3000.0375, L503.6030, L3890.6005, L501.6710, L3300.1200, L3100.5450, L503.6550, L501.4700, L503.5510, L3130.0010, L506.1000, L3100.3425 ####[facility] [address] [facility] [place], [place], [id number] GAP 5 Normal 5-15 [facility] Comment on above: Order Comment: N1 Performed By: #### L 501.9520, L506.0400, L803.2200, L100.0100, L500.4050, L3300.0700, L500.4100, L800.1280, L3410.2400, L501.9985, L3100.1850, L504.2610, L3300.0100, L3400.0700, L300.3900, L3200.1100, L3000.0375, L503.6030, L3890.6005, L501.6710, L3300.1200, L3100.5450, L503.6550, L501.4700, L503.5510, L3130.0010, L506.1000, L3100.3425 ####[facility] [address] [facility] [place], [place], [id number] GFR/1.73 sq M.predicted among non-blacks MDRD (S/P/Bld) [Vol rate/Area] 73 mL/min/{1.73_m2} Normal >60 [facility] Comment on above: Order Comment: N1 Result Comment: Non- GFR Calc Performed By: #### L 501.9520, L506.0400, L803.2200, L100.0100, L500.4050, L3300.0700, L500.4100, L800.1280, L3410.2400, L501.9985, L3100.1850, L504.2610, L3300.0100, L3400.0700, L300.3900, L3200.1100, L3000.0375, L503.6030, L3890.6005, L501.6710, L3300.1200, L3100.5450, L503.6550, L501.4700, L503.5510, L3130.0010, L506.1000, L3100.3425 ####[facility] [address] [facility] [address] [place], [place], [id number] Globulin (S) [Mass/Vol] 5.6 g/dL High 2.2-4.2 [facility] Comment on above: Order Comment: N1 Performed By: #### L 501.9520, L506.0400, L803.2200, L100.0100, L500.4050, L3300.0700, L500.4100, L800.1280, L3410.2400, L501.9985, L3100.1850, L504.2610, L3300.0100, L3400.0700, L300.3900, L3200.1100, L3000.0375, L503.6030, L3890.6005, L501.6710, L3300.1200, L3100.5450, L503.6550, L501.4700, L503.5510, L3130.0010, L506.1000, L3100.3425 ####[facility] [address] [facility] [address] [place], [place], [id number] Glucose [Mass/Vol] 239 mg/dL High 74-[address] [facility] Comment on above: Order Comment: N1 Result Comment: Gluc ose result greater than or equal to 200 mg/dLsuggests DIABETES MELLITUS per A.D.A. criteria. Performed By: #### L 501.9520, L506.0400, L803.2200, L100.0100, L500.4050, L3300.0700, L500.4100, L800.1280, L3410.2400, L501.9985, L3100.1850, L504.2610, L3300.0100, L3400.0700, L300.3900, L3200.1100, L3000.0375, L503.6030, L3890.6005, L501.6710, L3300.1200, L3100.5450, L503.6550, L501.4700, L503.5510, L3130.0010, L506.1000, L3100.3425 ####[facility] [address] [place], [place], [address] Potassium [Moles/Vol] 4.5 mmol/L Normal 3.5-5.1 [facility] Comment on above: Order Comment: N1 Performed By: #### L 501.9520, L506.0400, L803.2200, L100.0100, L500.4050, L3300.0700, L500.4100, L800.1280, L3410.2400, L501.9985, L3100.1850, L504.2610, L3300.0100, L3400.0700, L300.3900, L3200.1100, L3000.0375, L503.6030, L3890.6005, L501.6710, L3300.1200, L3100.5450, L503.6550, L501.4700, L503.5510, L3130.0010, L506.1000, L3100.3425 ####[facility] [address] [facility] [address] [place], [place], [id number] Sodium [Moles/Vol] 135 mmol/L Low 136-[address] [facility] Comment on above: Order Comment: N1 Performed By: #### L 501.9520, L506.0400, L803.2200, L100.0100, L500.4050, L3300.0700, L500.4100, L800.1280, L3410.2400, L501.9985, L3100.1850, L504.2610, L3300.0100, L3400.0700, L300.3900, L3200.1100, L3000.0375, L503.6030, L3890.6005, L501.6710, L3300.1200, L3100.5450, L503.6550, L501.4700, L503.5510, L3130.0010, L506.1000, L3100.3425 ####[facility] [address] [facility] [place], [place], [id number] T PROT 8.7 g/dL High 6.4-8.2 [facility] Comment on above: Order Comment: N1 Performed By: #### L 501.9520, L506.0400, L803.2200, L100.0100, L500.4050, L3300.0700, L500.4100, L800.1280, L3410.2400, L501.9985, L3100.1850, L504.2610, L3300.0100, L3400.0700, L300.3900, L3200.1100, L3000.0375, L503.6030, L3890.6005, L501.6710, L3300.1200, L3100.5450, L503.6550, L501.4700, L503.5510, L3130.0010, L506.1000, L3100.3425 ####[facility] [address] [facility] [place], [place], [id number] Urea nitrogen [Mass/Vol] 22 mg/dL High 7-18 [facility] Comment on above: Order Comment: N1 Performed By: #### L 501.9520, L506.0400, L803.2200, L100.0100, L500.4050, L3300.0700, L500.4100, L800.1280, L3410.2400, L501.9985, L3100.1850, L504.2610, L3300.0100, L3400.0700, L300.3900, L3200.1100, L3000.0375, L503.6030, L3890.6005, L501.6710, L3300.1200, L3100.5450, L503.6550, L501.4700, L503.5510, L3130.0010, L506.1000, L3100.3425 ####[facility] [address] [facility] [place], [place], [id number] Ferritinon 05-09-2024 Ferritin [Mass/Vol] 42 ng/mL Normal 8-252 [facility] Comment on above: Order Comment: N1 Performed By: #### L 501.9520, L506.0400, L803.2200, L100.0100, L500.4050, L3300.0700, L500.4100, L800.1280, L3410.2400, L501.9985, L3100.1850, L504.2610, L3300.0100, L3400.0700, L300.3900, L3200.1100, L3000.0375, L503.6030, L3890.6005, L501.6710, L3300.1200, L3100.5450, L503.6550, L501.4700, L503.5510, L3130.0010, L506.1000, L3100.3425 ####[facility] [address] [place], [address] Hemoglobin A1con 05-09-2024 HbA1c (Bld) [Mass fraction] 7.2 % High 3.8-5.6 [facility] Comment on above: Result Comment: Norm al < 5.7 % Prediabetic 5.7 - 6.4 % Diabetic >or= 6.5 % Please note range changes. Performed By: #### L 501.9520, L506.0400, L803.2200, L100.0100, L500.4050, L3300.0700, L500.4100, L800.1280, L3410.2400, L501.9985, L3100.1850, L504.2610, L3300.0100, L3400.0700, L300.3900, L3200.1100, L3000.0375, L503.6030, L3890.6005, L501.6710, L3300.1200, L3100.5450, L503.6550, L501.4700, L503.5510, L3130.0010, L506.1000, L3100.3425 ####[facility] [address] [place], [address] Iron+Iron Binding Capacityon 05-09-2024 Iron [Mass/Vol] 40 ug/dL Low 50-170 [facility] Comment on above: Order Comment: N1 Performed By: #### L 501.9520, L506.0400, L803.2200, L100.0100, L500.4050, L3300.0700, L500.4100, L800.1280, L3410.2400, L501.9985, L3100.1850, L504.2610, L3300.0100, L3400.0700, L300.3900, L3200.1100, L3000.0375, L503.6030, L3890.6005, L501.6710, L3300.1200, L3100.5450, L503.6550, L501.4700, L503.5510, L3130.0010, L506.1000, L3100.3425 ####[facility] [address] [place], [address] IRON SATURATION 11.6 Low 15.0-55.0 [facility] Comment on above: Order Comment: N1 Performed By: #### L 501.9520, L506.0400, L803.2200, L100.0100, L500.4050, L3300.0700, L500.4100, L800.1280, L3410.2400, L501.9985, L3100.1850, L504.2610, L3300.0100, L3400.0700, L300.3900, L3200.1100, L3000.0375, L503.6030, L3890.6005, L501.6710, L3300.1200, L3100.5450, L503.6550, L501.4700, L503.5510, L3130.0010, L506.1000, L3100.3425 ####[facility] [address] [place], [address] TIBC 346 ug/dL Normal 250-450 [facility] Comment on above: Order Comment: N1 Performed By: #### L 501.9520, L506.0400, L803.2200, L100.0100, L500.4050, L3300.0700, L500.4100, L800.1280, L3410.2400, L501.9985, L3100.1850, L504.2610, L3300.0100, L3400.0700, L300.3900, L3200.1100, L3000.0375, L503.6030, L3890.6005, L501.6710, L3300.1200, L3100.5450, L503.6550, L501.4700, L503.5510, L3130.0010, L506.1000, L3100.3425 ####[facility] [address] [facility] [place], [place], [id number] LDHon 05-09-2024 LDH 167 U/L Normal 84-246 [facility] Comment on above: Order Comment: N1 Performed By: #### L 501.9520, L506.0400, L803.2200, L100.0100, L500.4050, L3300.0700, L500.4100, L800.1280, L3410.2400, L501.9985, L3100.1850, L504.2610, L3300.0100, L3400.0700, L300.3900, L3200.1100, L3000.0375, L503.6030, L3890.6005, L501.6710, L3300.1200, L3100.5450, L503.6550, L501.4700, L503.5510, L3130.0010, L506.1000, L3100.3425 ####[facility] [address] [facility] [place], [place], [address] Lipid Profileon 05-09-2024 Cholesterol [Mass/Vol] 181 mg/dL Normal 200 [facility] Comment on above: Order Comment: N1 Result Comment: <200 mg/dL Desirable 200-240 mg/dL Borderline >240 mg/dL High Risk Performed By: #### L 501.9520, L506.0400, L803.2200, L100.0100, L500.4050, L3300.0700, L500.4100, L800.1280, L3410.2400, L501.9985, L3100.1850, L504.2610, L3300.0100, L3400.0700, L300.3900, L3200.1100, L3000.0375, L503.6030, L3890.6005, L501.6710, L3300.1200, L3100.5450, L503.6550, L501.4700, L503.5510, L3130.0010, L506.1000, L3100.3425 ####[facility] [address] [place], [address] Cholesterol in HDL [Mass/Vol] 30 mg/dL Low [facility] Comment on above: Order Comment: N1 [...] L3100.5450, L503.6550, L501.4700, L503.5510, L3130.0010, L506.1000, L3100.3425 ####[facility] [address] [place], [address] LDL TNP Normal 0-130 [facility] Comment on above: Order Comment: N1 Performed By: #### L 501.9520, L506.0400, L803.2200, L100.0100, L500.4050, L3300.0700, L500.4100, L800.1280, L3410.2400, L501.9985, L3100.1850, L504.2610, L3300.0100, L3400.0700, L300.3900, L3200.1100, L3000.0375, L503.6030, L3890.6005, L501.6710, L3300.1200, L3100.5450, L503.6550, L501.4700, L503.5510, L3130.0010, L506.1000, L3100.3425 ####[facility] [address] [place], [place], [id number] Triglyceride [Mass/Vol] 526 mg/dL High [facility] Comment on above: Order Comment: N1 [...] L3100.5450, L503.6550, L501.4700, L503.5510, L3130.0010, L506.1000, L3100.3425 ####[facility] [address] [place], [address] VLDL TNP Normal 5-40 [facility] Comment on above: Order Comment: N1 Performed By: #### L 501.9520, L506.0400, L803.2200, L100.0100, L500.4050, L3300.0700, L500.4100, L800.1280, L3410.2400, L501.9985, L3100.1850, L504.2610, L3300.0100, L3400.0700, L300.3900, L3200.1100, L3000.0375, L503.6030, L3890.6005, L501.6710, L3300.1200, L3100.5450, L503.6550, L501.4700, L503.5510, L3130.0010, L506.1000, L3100.3425 ####[facility] [address] [place], [address] Prothrombin Time w/INRon INR Coag (PPP) [Relative time] 1.0 {INR} Normal [facility] Comment on above: Performed By: #### L 501.9520, L506.0400, L803.2200, L100.0100, L500.4050, L3300.0700, L500.4100, L800.1280, L3410.2400, L501.9985, L3100.1850, L504.2610, L3300.0100, L3400.0700, L300.3900, L3200.1100, L3000.0375, L503.6030, L3890.6005, L501.6710, L3300.1200, L3100.5450, L503.6550, L501.4700, L503.5510, L3130.0010, L506.1000, L3100.3425 ####[facility] [address] [place], [address] PT Coag (PPP) [Time] 13.4 s Normal 11.7-14.9 [facility] Comment on above: Performed By: #### L 501.9520, L506.0400, L803.2200, L100.0100, L500.4050, L3300.0700, L500.4100, L800.1280, L3410.2400, L501.9985, L3100.1850, L504.2610, L3300.0100, L3400.0700, L300.3900, L3200.1100, L3000.0375, L503.6030, L3890.6005, L501.6710, L3300.1200, L3100.5450, L503.6550, L501.4700, L503.5510, L3130.0010, L506.1000, L3100.3425 ####[facility] [address] [facility] [place], [address] T4 Free Directon 05-09-2024 T4 FREE DIRECT 0.78 ng/dL Normal 0.76-1.46 [facility] Comment on above: Order Comment: N1 Performed By: #### L 501.9520, L506.0400, L803.2200, L100.0100, L500.4050, L3300.0700, L500.4100, L800.1280, L3410.2400, L501.9985, L3100.1850, L504.2610, L3300.0100, L3400.0700, L300.3900, L3200.1100, L3000.0375, L503.6030, L3890.6005, L501.6710, L3300.1200, L3100.5450, L503.6550, L501.4700, L503.5510, L3130.0010, L506.1000, L3100.3425 ####[facility] [id number] [facility] [place], [address] Thyroid Stim Hormone (TSH)on 05-09-2024 TSH 1.460 uIU/mL Normal 0.358-3.740 [facility] Comment on above: Order Comment: N1 Performed By: #### L 501.9520, L506.0400, L803.2200, L100.0100, L500.4050, L3300.0700, L500.4100, L800.1280, L3410.2400, L501.9985, L3100.1850, L504.2610, L3300.0100, L3400.0700, L300.3900, L3200.1100, L3000.0375, L503.6030, L3890.6005, L501.6710, L3300.1200, L3100.5450, L503.6550, L501.4700, L503.5510, L3130.0010, L506.1000, L3100.3425 ####[facility] [id number] [place], [address] CBC AND ELECTRONIC DIFFon Basophils (Bld) [#/Vol] 0.08 10*3/uL 0.00 - 0.15 K/uL [facility] Basophils/100 WBC (Bld) 0.9 % [facility] Differential cell count method Nom (Bld) Electronic Differential [facility] Eosinophils (Bld) [#/Vol] 0.25 10*3/uL 0.00 - 0.42 K/uL [facility] Eosinophils/100 WBC (Bld) 2.8 % [facility] Erythrocyte distribution width (RBC) [Ratio] 15.1 % High 10.8 - 14.9 % [facility] Hematocrit (Bld) [Volume fraction] 36.4 % 34.9 - 44.3 % [facility] Hemoglobin (Bld) [Mass/Vol] 11.2 g/dL Low 11.4 - 15.2 g/dL [facility] Immature granulocytes (Bld) [#/Vol] 0.14 10*3/uL High NINF - 0.08 K/uL [facility] Immature granulocytes/100 WBC (Bld) 1.6 % [facility] Interpretation and review of laboratory results Abnormal [facility] Lymphocytes (Bld) [#/Vol] 2.88 10*3/uL 1.16 - 3.51 K/uL [facility] Lymphocytes/100 WBC (Bld) 32.5 % [facility] MCH (RBC) [Entitic mass] 25.1 pg Low 25.9 - 33.9 pg [facility] MCHC (RBC) [Mass/Vol] 30.8 g/dL Low 31.4 - 35.9 g/dL [facility] MCV (RBC) [Entitic vol] 81.4 fL 79.6 - 97.7 fL [facility] Monocytes (Bld) [#/Vol] 0.54 10*3/uL 0.22 - 0.87 K/uL [facility] Monocytes/100 WBC (Bld) 6.1 % [facility] Neutrophils (Bld) [#/Vol] 4.96 10*3/uL 1.64 - 7.28 K/uL [facility] Nucleated RBC/100 WBC (Bld) [Ratio] 0.0 % NINF [facility] Platelet mean volume (Bld) [Entitic vol] 10.3 fL 8.5 - 12.2 fL [facility] Platelets (Bld) [#/Vol] 282 10*3/uL 150 - 393 K/uL [facility] RBC (Bld) [#/Vol] 4.47 10*6/uL [facility] Segmented neutrophils/100 WBC (Bld) 56.1 % [facility] WBC (Bld) [#/Vol] 8.85 10*3/uL 3.99 - 11. 19 K/uL [facility] Basophils (Bld) [#/Vol] 0.08 10*3/uL Normal 0.00-0.15 [facility] Comment on above: Performed By: #### C MPN, LDO #### [facility] (DEFAULT) [address] [place] [address] Basophils/100 WBC (Bld) 0.9 % Normal [facility] Comment on above: Performed By: #### C MPN, LDO #### [facility] (DEFAULT) [address] [place] [phone] DIFF STATUS Electronic Differential Normal [facility] Comment on above: Performed By: #### C MPN, LDO #### [facility] (DEFAULT) [address] [place] [address] Eosinophils (Bld) [#/Vol] 0.25 10*3/uL Normal 0.00-0.42 [facility] Comment on above: Performed By: #### C MPN, LDO #### [facility] (DEFAULT) [address] [place] [address] Eosinophils/100 WBC (Bld) 2.8 % Normal [facility] Comment on above: Performed By: #### C MPN, LDO #### [facility] (DEFAULT) [address] [place] [address] Hematocrit (Bld) [Volume fraction] 36.4 % Normal 34.9-44.3 [facility] Comment on above: Performed By: #### C MPN, LDO #### [facility] (DEFAULT) [address] [place] [address] Hemoglobin (Bld) [Mass/Vol] 11.2 g/dL Low 11.4-15.2 [facility] Comment on above: Performed By: #### C MPN, LDO #### [facility] (DEFAULT) [address] [place] [address] Immature Grans % 1.6 % Normal [facility] Comment on above: Performed By: #### C MPN, LDO #### [facility] (DEFAULT) [address] [place] [address] Immature Grans Absolute 0.14 K/uL High <=0.08 [facility] Comment on above: Performed By: #### C MPN, LDO #### [facility] (DEFAULT) [address] [place] [address] Lymphocytes (Bld) [#/Vol] 2.88 10*3/uL Normal 1.16-3.51 [facility] Comment on above: Performed By: #### C MPN, LDO #### [facility] (DEFAULT) [address] [address] Lymphocytes/100 WBC (Bld) 32.5 % Normal [facility] Comment on above: Performed By: #### C MPN, LDO #### [facility] (DEFAULT) [address] [address] MCV (RBC) [Entitic vol] 81.4 fL Normal 79.6-97.7 [facility] Comment on above: Performed By: #### C MPN, LDO #### [facility] (DEFAULT) [address] [address] Mean Cell Hgb 25.1 pg Low 25.9-33.9 [facility] Comment on above: Performed By: #### C MPN, LDO #### [facility] (DEFAULT) [address] [address] Mean Cell Hgb Conc 30.8 g/dL Low 31.4-35.9 [facility] Comment on above: Performed By: #### C MPN, LDO #### [facility] (DEFAULT) [address] [address] Monocytes (Bld) [#/Vol] 0.54 10*3/uL Normal 0.22-0.87 [facility] Comment on above: Performed By: #### C MPN, LDO #### [facility] (DEFAULT) [address] [address] Monocytes/100 WBC (Bld) 6.1 % Normal [facility] Comment on above: Performed By: #### C MPN, LDO #### [facility] (DEFAULT) [address] [address] Nucleated RBC 0.0 /100 WBC Normal <=0.2 [facility] Comment on above: Performed By: #### C MPN, LDO #### [facility] (DEFAULT) [address] [place] [address] Platelet mean volume (Bld) [Entitic vol] 10.3 fL Normal 8.5-12.2 [facility] Comment on above: Performed By: #### C MPN, LDO #### [facility] (DEFAULT) [address] [place] [address] Platelets (Bld) [#/Vol] 282 10*3/uL Normal 150-393 [facility] Comment on above: Performed By: #### C MPN, LDO #### [facility] (DEFAULT) [address] [place] [address] RBC (Bld) [#/Vol] 4.47 10*6/uL Normal 3.91-5.04 [facility] Comment on above: Performed By: #### C MPN, LDO #### [facility] (DEFAULT) [address] [place] [address] RBC Distribution 15.1 % High 10.8-14.9 [facility] Comment on above: Performed By: #### C MPN, LDO #### [facility] (DEFAULT) [address] [place] [address] Segs + Bands Auto 56.1 % Normal [facility] Comment on above: Performed By: #### C MPN, LDO #### [facility] (DEFAULT) [address] [place] [address] Segs + Bands,Absolute Auto 4.96 K/uL Normal 1.64-7.28 [facility] Comment on above: Performed By: #### C MPN, LDO #### [facility] (DEFAULT) [address] [place] [address] WBC (Bld) [#/Vol] 8.85 10*3/uL Normal 3.99-11.19 [facility] Comment on above: Performed By: #### C MPN, LDO #### [facility] (DEFAULT) [address] [address] CHROMOGRANIN Aon 05-07-2024 Chromogranin A 946 ng/mL High <93 [facility] Comment on above: Result Comment: Impa ired renal or hepatic function or treatment with proton pump inhibitors may result in artifactual elevations of Chromogranin A. ADDITIONAL INFORMATION The testing method is a homogeneous time-resolved immunofluorescent assay manufactured by [employer] and performed on the [employer] Kryptor Compact Plus. Values obtained with different [...] examination and other findings. Test Performed by: [id number] [place] [address] Manufacturing Sales Representative: Juana Recio Ph.D.; CLIA# [id number] Performed By: #### Y CHGRA #### [facility] (DEFAULT) [address] [address] COMPREHENSIVE METABOLIC PANE [place]akan 05-07-2024 Albumin [Mass/Vol] 3.8 g/dL Normal 3.5-5.0 [facility] Comment on above: Performed By: #### C MPN, LDO #### [facility] (DEFAULT) [address] [address] ALP [Catalytic activity/Vol] 125 U/L Normal 32-126 [facility] Comment on above: Performed By: #### C MPN, LDO #### [facility] (DEFAULT) [address] [place] [address] ALT [Catalytic activity/Vol] 21 U/L Normal 9-48 [facility] Comment on above: Performed By: #### C MPN, LDO #### [facility] (DEFAULT) [address] [place] [address] Anion gap [Moles/Vol] 8 mmol/L Normal 7-17 [facility] Comment on above: Performed By: #### C MPN, LDO #### [facility] (DEFAULT) [address] [place] [address] AST [Catalytic activity/Vol] 22 U/L Normal 10-39 [facility] Comment on above: Performed By: #### C MPN, LDO #### [facility] (DEFAULT) [address] [place] [address] Bilirubin [Mass/Vol] 0.5 mg/dL Normal <1.5 [facility] Comment on above: Performed By: #### C MPN, LDO #### [facility] (DEFAULT) [address] [place] [address] Calcium [Mass/Vol] 9.9 mg/dL Normal 8.6-10.5 [facility] Comment on above: Performed By: #### C MPN, LDO #### [facility] (DEFAULT) [address] [place] [address] Chloride [Moles/Vol] 99 mmol/L Normal 98-108 [facility] Comment on above: Performed By: #### C MPN, LDO #### [facility] (DEFAULT) [address] [place] [address] CO2 [Moles/Vol] 32 mmol/L High 21-31 [facility] Comment on above: Performed By: #### C MPN, LDO #### [facility] (DEFAULT) [address] [place] [address] Creatinine [Mass/Vol] 0.71 mg/dL Normal 0.50-1.20 [facility] Comment on above: Performed By: #### C MPN, LDO #### [facility] (DEFAULT) [address] [place] [address] eGFR, CKD-EPI, Female > Normal >=60 [facility] Comment on above: Result Comment: Repo rted eGFR is based on the CKD-EPI 2020 equation using creatinine, age, and sex. Performed By: #### C MPN, LDO #### [facility] (DEFAULT) [address] [place] [address] Glucose [Mass/Vol] 197 mg/dL High 70-99 [facility] Comment on above: Performed By: #### C MPN, LDO #### [facility] (DEFAULT) [address] [place] [address] Osmolality [Osmolality] 290 mosm/kg Normal 278-305 [facility] Comment on above: Performed By: #### C MPN, LDO #### [facility] (DEFAULT) [address] [place] [address] Potassium [Moles/Vol] 4.6 mmol/L Normal 3.5-5.0 [facility] Comment on above: Performed By: #### C MPN, LDO #### [facility] (DEFAULT) [address] [place] [address] Protein [Mass/Vol] 8.8 g/dL High 6.4-8.3 [facility] Comment on above: Performed By: #### C MPN, LDO #### [facility] (DEFAULT) [address] [place] [address] Sodium [Moles/Vol] 134 mmol/L Low 135-145 [facility] Comment on above: Performed By: #### C MPN, LDO #### [facility] (DEFAULT) [address] [place] [address] Urea nitrogen [Mass/Vol] 16 mg/dL Normal 7-25 [facility] Comment on above: Performed By: #### C MPN, LDO #### [facility] (DEFAULT) [address] [address] Urea nitrogen/Creatinine [Mass ratio] 23 mg/mg Normal [facility] Comment on above: Performed By: #### C MPN, LDO #### [facility] (DEFAULT) [address] [address] GASTRIN - NON-STIMULATEDon 1 Gastrin 591 pg/mL High [facility] Comment on above: Result Comment: REFERENCE VALUE <100 Reference ranges valid for >= 8 hour fast. Test Performed by: [facility] [address] [place] [address] Manufacturing Sales Representative: Juana Recio Ph.D.; CLIA# [id number] Performed By: #### P CA #### [facility] (DEFAULT) [address] [address] Laboratory - Chemistry and C hemistry - challengeon 05-07-2024 Albumin [Mass/Vol] 3.8 g/dL 3.5 - 5.0 g/dL [facility] ALP [Catalytic activity/Vol] 125 U/L 32 - 126 U/L [facility] ALT [Catalytic activity/Vol] 21 U/L 9 - 48 U/L [facility] Anion gap [Moles/Vol] 8 mmol/L 7 - 17 mmol/L [facility] AST [Catalytic activity/Vol] 22 U/L 10 - 39 U/L [facility] Bilirubin [Mass/Vol] 0.5 mg/dL NINF - 1.5 mg/dL [facility] Calcium [Mass/Vol] 9.9 mg/dL 8.6 - 10. 5 mg/dL [facility] Chloride [Moles/Vol] 99 mmol/L 98 - 10 8 mmol/L [facility] CO2 [Moles/Vol] 32 mmol/L High 21 - 31 mmol/L [facility] Creatinine [Mass/Vol] 0.71 mg/dL 0.50 - 1.20 mg/dL [facility] Glucose [Mass/Vol] 197 mg/dL High 70 - 99 mg/dL [facility] Osmolality Calc [Osmolality] 290 [facility] Potassium [Moles/Vol] 4.6 mmol/L 3.5 - 5.0 mmol/L [facility] Protein [Mass/Vol] 8.8 g/dL High 6.4 - 8.3 g/dL [facility] Sodium [Moles/Vol] 134 mmol/L Low 135 - 145 mmol/L [facility] Urea nitrogen [Mass/Vol] 16 mg/dL 7 - 25 mg/dL [facility] Urea nitrogen/Creatinine [Mass ratio] 23 mg/mg [facility] No Panel Informationon 05-07 eGFR, CKD-EPI, Female - PINF [facility] Comment on above: Reported eGFR is bas ed on the CKD-EPI 2020 equation using creatinine, age, and sex. Interpretation and review of laboratory results Abnormal [facility] .GFRon 05-05-2024 GFR 95 ml/min/1.73sqm Normal [facility] Comment on above: Result Comment: GFR Population [...] MP, ADIFF, CBC, PBNP, GFR, ANEU #### [address] [address] GFR Non- 78 ml/min/1.73sqm Normal [facility] Comment on above: Result Comment: GFR Population [...] MP, ADIFF, CBC, PBNP, GFR, ANEU #### [address] [address] CMPon 05-05-2024 Albumin Level 3.3 G/dL Low 3.5-5.0 [facility] Comment on above: Performed By: #### C MP, ADIFF, CBC, PBNP, GFR, ANEU #### [address] [address] Albumin/Globulin [Mass ratio] 0.7 {ratio} Low 1.1-2.5 [facility] Comment on above: Performed By: #### C MP, ADIFF, CBC, PBNP, GFR, ANEU #### [address] [address] ALP [Catalytic activity/Vol] 172 U/L High 40-135 [facility] Comment on above: Performed By: #### C MP, ADIFF, CBC, PBNP, GFR, ANEU #### [address] [address] ALT [Catalytic activity/Vol] 32 U/L Normal 14-59 [facility] Comment on above: Performed By: #### C MP, ADIFF, CBC, PBNP, GFR, ANEU #### [address] [address] AST [Catalytic activity/Vol] 26 U/L Normal 10-40 [facility] Comment on above: Performed By: #### C MP, ADIFF, CBC, PBNP, GFR, ANEU #### [address] [address] Bili Total 0.4 mg/dL Normal 0.2-1.0 [facility] Comment on above: Result Comment: Use of this assay is not recommended for patients undergoing treatment with eltrombopag due to the potential for falsely elevated results. Performed By: #### C MP, ADIFF, CBC, PBNP, GFR, ANEU #### [address] [address] BUN/Creatinine Ratio 22 ratio Normal 7-27 [facility] Comment on above: Performed By: #### C MP, ADIFF, CBC, PBNP, GFR, ANEU #### [address] [address] Calcium [Mass/Vol] 9.4 mg/dL Normal 8.4-10.2 [facility] Comment on above: Performed By: #### C MP, ADIFF, CBC, PBNP, GFR, ANEU #### [address] [address] Chloride [Moles/Vol] 99 mmol/L Normal 98-107 [facility] Comment on above: Performed By: #### C MP, ADIFF, CBC, PBNP, GFR, ANEU #### [address] [address] CO2 [Moles/Vol] 32 mmol/L High 22-29 [facility] Comment on above: Performed By: #### C MP, ADIFF, CBC, PBNP, GFR, ANEU #### [address] [address] Creatinine [Mass/Vol] 0.76 mg/dL Normal 0.55-1.02 [facility] Comment on above: Result Comment: Test ing performed on Siemens Dimension EXL analyzer using a modified kinetic Avila technique. Performed By: #### C MP, ADIFF, CBC, PBNP, GFR, ANEU #### [address] [address] Electrolyte Balance 6.0 mEq/L Normal 4.0-15.0 [facility] Comment on above: Performed By: #### C MP, ADIFF, CBC, PBNP, GFR, ANEU #### [address] [address] Globulin 5.0 G/dL Normal [facility] Comment on above: Performed By: #### C MP, ADIFF, CBC, PBNP, GFR, ANEU #### [address] [address] Glucose [Mass/Vol] 198 mg/dL High 70-105 [facility] Comment on above: Performed By: #### C MP, ADIFF, CBC, PBNP, GFR, ANEU #### [address] [address] Potassium [Moles/Vol] 4.9 mmol/L Normal 3.5-5.1 [facility] Comment on above: Performed By: #### C MP, ADIFF, CBC, PBNP, GFR, ANEU #### [address] [address] Sodium [Moles/Vol] 137 mmol/L Normal 136-145 [facility] Comment on above: Performed By: #### C MP, ADIFF, CBC, PBNP, GFR, ANEU #### [address] [address] Total Protein 8.3 G/dL High 6.4-8.2 [facility] Comment on above: Performed By: #### C MP, ADIFF, CBC, PBNP, GFR, ANEU #### [address] [address] Urea nitrogen [Mass/Vol] 17 mg/dL Normal 7-18 [facility] Comment on above: Performed By: #### C MP, ADIFF, CBC, PBNP, GFR, ANEU #### [address] [address] DLDLon 05-05-2024 Direct LDL Cholesterol 74 mg/dL Normal 0-99 [facility] Comment on above: Result Comment: Dire ct LDL Cholesterol Reference Interval: Optimal: <100 mg/dL Near Optimal/above optimal: 100-129 mg/dL Borderline high: 130-159 mg/dL High: 160-189 mg/dL Very high: >=190 mg/dL Performed By: #### C MP, ADIFF, CBC, PBNP, GFR, ANEU #### [address] [place], [place] [address] LABORATORYOrdered By: SYSTEM SYSTEM on 05-05-2024 Albumin [...] ratio Normal 7 - 27 ratio AO [facility] SS LABORATORYOrdered By: Adam Herrera on 05-05-2024 Cholesterol [Mass/Vol] 169 mg/dL Normal 0 - 200 mg/dL AO [facility] Comment on above: Interpretive Data: C holesterol [...] Invalid Interpretation Code 0 - 130 AO [facility] Comment on above: Result Comment: Trig lyceride >400 invalidates the calculated LDL. Triglyceride [Mass/Vol] 429 mg/dL High 0 - 150 mg/dL AO [facility] Comment on above: Interpretive Data: T riglyceride Reference Interval: Less than 150 Normal 150-199 Borderline high risk 200-499 High risk 500 or higher Very high risk LIPIDon 05-05-2024 Cholesterol [Mass/Vol] 169 mg/dL Normal 0-200 [facility] Comment on above: Result Comment: Chol esterol Reference Interval: Less than 200 Desirable 200-239 Borderline high risk 240 and above High risk Performed By: #### C MP, ADIFF, CBC, PBNP, GFR, ANEU #### [address] [address] Cholesterol in HDL [Mass/Vol] 30 mg/dL Low 40-60 [facility] Comment on above: Performed By: #### C MP, ADIFF, CBC, PBNP, GFR, ANEU #### [address] [address] LDL Cholesterol Not Valid Normal 0-130 [facility] Comment on above: Result Comment: Trig lyceride >400 invalidates the calculated LDL. Performed By: #### C MP, ADIFF, CBC, PBNP, GFR, ANEU #### [address] [place] [address] Triglyceride [Mass/Vol] 429 mg/dL High 0-150 [facility] Comment on above: Result Comment: Trig lyceride Reference Interval: Less than 150 Normal 150-199 Borderline high risk 200-499 High risk 500 or higher Very high risk Performed By: #### C MP, ADIFF, CBC, PBNP, GFR, ANEU #### [address] [address] CBC W/Diff, Automatedon 03-23 SMEAR COMMENT SCANNED Normal [facility] Comment on above: Result Comment: AUTO DIFF OK Performed By: #### L 100.9950, L503.6550, L500.4050, L503.0105, L503.6030, L100.0100 ####[facility] [address] [place], [place], [id number] Comprehensive Metabolic Prof ilon 04-16-2024 Albumin [Mass/Vol] 3.1 g/dL Low 3.2-5.[address] [facility] Comment on above: Performed By: #### L 100.9950, L503.6550, L500.4050, L503.0105, L503.6030, L100.0100 ####[facility] [address] [place], [place], [id number] Albumin/Globulin [Mass ratio] 0.6 {ratio} Low 0.9-2.4 [facility] Comment on above: Performed By: #### L 100.9950, L503.6550, L500.4050, L503.0105, L503.6030, L100.0100 ####[facility] [address] [place], [place], [id number] ALK P 131 U/L High 45-117 [facility] Comment on above: Performed By: #### L 100.9950, L503.6550, L500.4050, L503.0105, L503.6030, L100.0100 ####[facility] [address] [place], [address] ALT [Catalytic activity/Vol] 25 U/L Normal 13-56 [facility] Comment on above: Performed By: #### L 100.9950, L503.6550, L500.4050, L503.0105, L503.6030, L100.0100 ####[facility] [address] [place], [address] AST [Catalytic activity/Vol] 31 U/L Normal 15-37 [facility] Comment on above: Performed By: #### L 100.9950, L503.6550, L500.4050, L503.0105, L503.6030, L100.0100 ####[facility] [address] [place], [address] Bilirubin [Mass/Vol] 0.70 mg/dL Normal 0.20-1.00 [facility] Comment on above: Result Comment: For patients on eltrombopag therapy, use of Dimension Fitzpatrick TBIL is not recommended. Performed By: #### L 100.9950, L503.6550, L500.4050, L503.0105, L503.6030, L100.0100 ####[facility] [address] [place], [address] BUN/CRE 13.2 RATIO Normal 10-20 [facility] Comment on above: Performed By: #### L 100.9950, L503.6550, L500.4050, L503.0105, L503.6030, L100.0100 ####[facility] [address] [place], [address] CA,Total 9.2 mg/dL Normal 8.5-10.1 [facility] Comment on above: Performed By: #### L 100.9950, L503.6550, L500.4050, L503.0105, L503.6030, L100.0100 ####[facility] [address] [place], [address] Chloride [Moles/Vol] 101 mmol/L Normal 98-107 [facility] Comment on above: Performed By: #### L 100.9950, L503.6550, L500.4050, L503.0105, L503.6030, L100.0100 ####[facility] [address] [place], [address] CO2 [Moles/Vol] 32.0 mmol/L Normal 21.0-32.0 [facility] Comment on above: Performed By: #### L 100.9950, L503.6550, L500.4050, L503.0105, L503.6030, L100.0100 ####[facility] [address] [place], [address] Creatinine [Mass/Vol] 0.76 mg/dL Normal 0.55-1.02 [facility] Comment on above: Result Comment: The validity of the calculated GFR GFRAA in patients over70 years has not been determined. Clinical correlation isessential. Performed By: #### L 100.9950, L503.6550, L500.4050, L503.0105, L503.6030, L100.0100 ####[facility] [address] [place], [address] EST GFR - AA 102 mL/min Normal >60 [facility] Comment on above: Result Comment: Afri can Tajik GFR Calc Performed By: #### L 100.9950, L503.6550, L500.4050, L503.0105, L503.6030, L100.0100 ####[facility] [address] [place], [address] GAP 4 Low 5-15 [facility] Comment on above: Performed By: #### L 100.9950, L503.6550, L500.4050, L503.0105, L503.6030, L100.0100 ####[facility] [address] [place], [address] GFR/1.73 sq M.predicted among non-blacks MDRD (S/P/Bld) [Vol rate/Area] 84 mL/min/{1.73_m2} Normal >60 [facility] Comment on above: Result Comment: Non- GFR Calc Performed By: #### L 100.9950, L503.6550, L500.4050, L503.0105, L503.6030, L100.0100 ####[facility] [address] [place], [address] Globulin (S) [Mass/Vol] 5.2 g/dL High 2.2-4.2 [facility] Comment on above: Performed By: #### L 100.9950, L503.6550, L500.4050, L503.0105, L503.6030, L100.0100 ####[facility] [address] [place], [address] Glucose [Mass/Vol] 140 mg/dL High 74-[address] [facility] Comment on above: Result Comment: Fast ing Glucose result greater than or equal to 126 mg/dLsuggests DIABETES MELLITUS per A.D.A. criteria. Performed By: #### L 100.9950, L503.6550, L500.4050, L503.0105, L503.6030, L100.0100 ####[facility] [address] [place], [address] Potassium [Moles/Vol] 4.2 mmol/L Normal 3.5-5.1 [facility] Comment on above: Performed By: #### L 100.9950, L503.6550, L500.4050, L503.0105, L503.6030, L100.0100 ####[facility] [address] [place], [address] Sodium [Moles/Vol] 137 mmol/L Normal 136-[address] [facility] Comment on above: Performed By: #### L 100.9950, L503.6550, L500.4050, L503.0105, L503.6030, L100.0100 ####[facility] [address] [place], [address] T PROT 8.3 g/dL High 6.4-8.2 [facility] Comment on above: Performed By: #### L 100.9950, L503.6550, L500.4050, L503.0105, L503.6030, L100.0100 ####[facility] [address] [place], [address] Urea nitrogen [Mass/Vol] 10 mg/dL Normal 7-18 [facility] Comment on above: Performed By: #### L 100.9950, L503.6550, L500.4050, L503.0105, L503.6030, L100.0100 ####[facility] [address] [place], [address] Ferritinon 04-16-2024 Ferritin [Mass/Vol] 40 ng/mL Normal 8-252 [facility] Comment on above: Performed By: #### L 100.9950, L503.6550, L500.4050, L503.0105, L503.6030, L100.0100 ####[facility] [address] [place], [address] Iron+Iron Binding Capacityon 04-16-2024 Iron [Mass/Vol] 32 ug/dL Low 50-170 [facility] Comment on above: Performed By: #### L 100.9950, L503.6550, L500.4050, L503.0105, L503.6030, L100.0100 ####[facility] [address] [place], [address] IRON SATURATION 9.3 Low 15.0-55.0 [facility] Comment on above: Performed By: #### L 100.9950, L503.6550, L500.4050, L503.0105, L503.6030, L100.0100 ####[facility] [address] [place], [address] TIBC 345 ug/dL Normal 250-450 [facility] Comment on above: Performed By: #### L 100.9950, L503.6550, L500.4050, L503.0105, L503.6030, L100.0100 ####[facility] [address] [place], [place], [address] Oncology Visit Reporton 03-23 Oncology Visit Report Normal [facility] Orthopedic Visit Reporton Orthopedic Visit Report Normal [facility] Retic Panelon 04-16-2024 IM RET FRACTION 21.00 High 3.00-15.90 [facility] Comment on above: Performed By: #### L 100.9950, L503.6550, L500.4050, L503.0105, L503.6030, L100.0100 ####[facility] [address] [place], [place], [id number] RET-HE 24.6 pg Low 30-35 [facility] Comment on above: Performed By: #### L 100.9950, L503.6550, L500.4050, L503.0105, L503.6030, L100.0100 ####[facility] [address] [place], [place], [id number] Retic Count 4.20 High 0.5-1.5 [facility] Comment on above: Performed By: #### L 100.9950, L503.6550, L500.4050, L503.0105, L503.6030, L100.0100 ####[facility] [address] [place], [address] Vitamin B12on 04-16-2024 Cobalamin (Vitamin B12) [Mass/Vol] 259 pg/mL Normal 211-911 [facility] Comment on above: Performed By: #### L 100.9950, L503.6550, L500.4050, L503.0105, L503.6030, L100.0100 ####[facility] [address] [place], [address] Gastroenterology Visit Repor ton 04-14-2024 Gastroenterology Visit Report Normal [facility] .Auto Diffon 04-13-2024 Basophil, Absolute 0.0 10 3/mcL Normal 0.0-0.2 [facility] Comment on above: Performed By: #### C MP, ADIFF, CBC, PBNP, GFR, ANEU #### [address] [address] Basophils/100 WBC (Bld) 0.5 % Normal 0.0-2.5 [facility] Comment on above: Performed By: #### C MP, ADIFF, CBC, PBNP, GFR, ANEU #### [address] [address] Eosinophil, Absolute 0.1 10 3/mcL Normal 0.0-0.7 [facility] Comment on above: Performed By: #### C MP, ADIFF, CBC, PBNP, GFR, ANEU #### [address] [address] Eosinophils/100 WBC (Bld) 1.7 % Normal 0.0-7.0 [facility] Comment on above: Performed By: #### C MP, ADIFF, CBC, PBNP, GFR, ANEU #### [address] [address] Lymphocyte, Absolute 1.9 10 3/mcL Normal 0.9-4.3 [facility] Comment on above: Performed By: #### C MP, ADIFF, CBC, PBNP, GFR, ANEU #### [address] [address] Lymphocytes/100 WBC (Bld) 24.9 % Normal 20.0-40.0 [facility] Comment on above: Performed By: #### C MP, ADIFF, CBC, PBNP, GFR, ANEU #### [address] [address] Monocyte, Absolute 0.4 10 3/mcL Normal 0.1-1.4 [facility] Comment on above: Performed By: #### C MP, ADIFF, CBC, PBNP, GFR, ANEU #### [address] [address] Monocytes/100 WBC (Bld) 5.4 % Normal 2.0-13.0 [facility] Comment on above: Performed By: #### C MP, ADIFF, CBC, PBNP, GFR, ANEU #### [address] [address] Neutrophils/100 WBC (Bld) 67.5 % Normal 50.0-75.0 [facility] Comment on above: Performed By: #### C MP, ADIFF, CBC, PBNP, GFR, ANEU #### [address] [address] .NEUABSon 04-13-2024 Neutrophil, Absolute 5.2 10 3/mcL Normal 2.3-8.1 [facility] Comment on above: Performed By: #### C MP, ADIFF, CBC, PBNP, GFR, ANEU #### [address] [address] CBCon 04-13-2024 Erythrocyte distribution width (RBC) [Ratio] 17.4 % High 11.5-15.5 [facility] Comment on above: Performed By: #### C MP, ADIFF, CBC, PBNP, GFR, ANEU #### [address] [address] Hematocrit (Bld) [Volume fraction] 31.6 % Low 34.0-46.0 [facility] Comment on above: Performed By: #### C MP, ADIFF, CBC, PBNP, GFR, ANEU #### [address] [address] Hgb 9.9 G/dL Low 12.0-16.0 [facility] Comment on above: Performed By: #### C MP, ADIFF, CBC, PBNP, GFR, ANEU #### [place] [address] MCH (RBC) [Entitic mass] 26.4 pg Low 27.0-33.0 [facility] Comment on above: Performed By: #### C MP, ADIFF, CBC, PBNP, GFR, ANEU #### [place] [address] MCHC 31.3 G/dL Low 32.0-36.0 [facility] Comment on above: Performed By: #### C MP, ADIFF, CBC, PBNP, GFR, ANEU #### [place] [address] MCV (RBC) [Entitic vol] 84.3 fL Normal 80.0-99.0 [facility] Comment on above: Performed By: #### C MP, ADIFF, CBC, PBNP, GFR, ANEU #### [place] [address] Platelet 284 10 3/mcL Normal 150-450 [facility] Comment on above: Performed By: #### C MP, ADIFF, CBC, PBNP, GFR, ANEU #### [place] [address] Platelet mean volume (Bld) [Entitic vol] 7.5 fL Normal 6.6-10.5 [facility] Comment on above: Performed By: #### C MP, ADIFF, CBC, PBNP, GFR, ANEU #### [place] [address] RBC 3.75 10 6/mcL Low 4.10-5.30 [facility] Comment on above: Performed By: #### C MP, ADIFF, CBC, PBNP, GFR, ANEU #### [facility] [address] [place], [place] [address] WBC 7.6 10 3/mcL Normal 4.5-10.8 [facility] Comment on above: Performed By: #### C MP, ADIFF, CBC, PBNP, GFR, ANEU #### [facility] [address] [place], [place] [address] LABORATORYOrdered By: SYSTEM SYSTEM on 04-13-2024 Natriuretic [...] (Bld) [Mass/Vol] 211 pg/mL High 0-125 [facility] Comment on above: Result Comment: NT-p roBNP results of less than 300 pg/mL effectively rules out acute congestive heart failure with 99% negative predictive value. Performed By: #### P BNP #### [address] [address] Bedside Glucoseon 04-07-2024 FINGERSTICK GLU 222 mg/dL High 74-106 [facility] Comment on above: Result Comment: ESPERANZA GEMENT OF PATIENT CARE PER NURSING PROTOCOL Performed By: #### L 501.080 ####[facility] [address] [place], [address] FINGERSTICK GLU 237 mg/dL High 74-106 [facility] Comment on above: Result Comment: ESPERANZA GEMENT OF PATIENT CARE PER NURSING PROTOCOL Performed By: #### L 501.080 ####[facility] [address] [place], [address] Discharge Instructionon 03-22 Discharge Instruction Normal [facility] Bedside Glucoseon 04-06-2024 FINGERSTICK GLU 252 mg/dL High 74-106 [facility] Comment on above: Result Comment: ESPERANZA GEMENT OF PATIENT CARE PER NURSING PROTOCOL Performed By: #### L 501.080 ####[facility] [address] [place], [address] FINGERSTICK GLU 216 mg/dL High 74-106 [facility] Comment on above: Result Comment: ESPERANZA GEMENT OF PATIENT CARE PER NURSING PROTOCOL Performed By: #### L 501.080 ####[facility] [address] [place], [address] FINGERSTICK GLU 285 mg/dL High 74-106 [facility] Comment on above: Result Comment: ESPERANZA GEMENT OF PATIENT CARE PER NURSING PROTOCOL Performed By: #### L 501.080 ####[facility] [address] [place], [address] FINGERSTICK GLU 219 mg/dL High 74-106 [facility] Comment on above: Result Comment: ESPERANZA GEMENT OF PATIENT CARE PER NURSING PROTOCOL Performed By: #### L 501.080 ####[facility] [address] [place], [address] CBC W/Diff, Automatedon 03-22 PATH REV Reviewed Normal [facility] Comment on above: Result Comment: Neut rophilic left shift.Normocytic anemia.Clinical correlation necessary.Nate Carolina M.D. 04/06/24 AMENDED REPORT 04/06/24923 PATH REV previously reported as: November Performed By: #### L 501.4020, L501.2450, L100.0100, L500.4050 ####[facility] [address] [place], [address] CBC-Complete Blood Cnt No Di ffon 04-06-2024 Erythrocyte distribution width (RBC) [Ratio] 19.0 % High 11.6-14.6 [facility] Comment on above: Performed By: #### L 100.0500 ####[facility] [address] [place], [address] Hematocrit (Bld) [Volume fraction] 29.1 % Low 37-47 [facility] Comment on above: Performed By: #### L 100.0500 ####[facility] [address] [place], [address] Hemoglobin (Bld) [Mass/Vol] 8.7 g/dL Low 12.0-15.0 [facility] Comment on above: Performed By: #### L 100.0500 ####[facility] [address] [place], [address] MCH (RBC) [Entitic mass] 27.0 pg Normal 27.0-32.0 [facility] Comment on above: Performed By: #### L 100.0500 ####[facility] [address] [place], [address] MCHC (RBC) [Mass/Vol] 29.9 g/dL Low 32-36 [facility] Comment on above: Performed By: #### L 100.0500 ####[facility] [address] [place], [address] MCV (RBC) [Entitic vol] 90.4 fL Normal 81-99 [facility] Comment on above: Performed By: #### L 100.0500 ####[facility] [address] [place], [address] Platelet mean volume (Bld) [Entitic vol] 9.6 fL Normal 6.2-12.0 [facility] Comment on above: Performed By: #### L 100.0500 ####[facility] [address] [place], [address] Platelets (Bld) [#/Vol] 227 10*3/uL Normal 150-450 [facility] Comment on above: Performed By: #### L 100.0500 ####[facility] [address] [place], [address] RBC (Bld) [#/Vol] 3.22 10*6/uL Low 4.2-5.4 [facility] Comment on above: Performed By: #### L 100.0500 ####[facility] [address] [place], [address] RDW SD 61.0 fl High 35.1-43.9 [facility] Comment on above: Performed By: #### L 100.0500 ####[facility] [address] [place], [address] WBC (Bld) [#/Vol] 9.4 10*3/uL Normal 4.4-11.[address] [facility] Comment on above: Performed By: #### L 100.0500 ####[facility] [address] [place], [address] MR/PN.GIon 04-06-2024 MR/PN.GI Normal [facility] Bedside Glucoseon 04-05-2024 FINGERSTICK GLU 235 mg/dL High 74-106 [facility] Comment on above: Result Comment: ESPERANZA GEMENT OF PATIENT CARE PER NURSING PROTOCOL Performed By: #### L 501.080 ####[facility] [address] [place], [address] FINGERSTICK GLU 168 mg/dL High 74-106 [facility] Comment on above: Result Comment: ESPERANZA GEMENT OF PATIENT CARE PER NURSING PROTOCOL Performed By: #### L 501.080 ####[facility] [address] [place], [address] FINGERSTICK GLU 186 mg/dL High 74-106 [facility] Comment on above: Result Comment: ESPERANZA GEMENT OF PATIENT CARE PER NURSING PROTOCOL Performed By: #### L 501.080 ####[facility] [address] [place], [address] FINGERSTICK GLU 180 mg/dL High 74-106 [facility] Comment on above: Result Comment: ESPERANZA VILLALTA OF PATIENT CARE PER NURSING PROTOCOL Performed By: #### L 501.080 ####[facility] [address] [place], [address] CBC-Complete Blood Cnt No Di ffon 04-05-2024 Erythrocyte distribution width (RBC) [Ratio] 19.4 % High 11.6-14.6 [facility] Comment on above: Performed By: #### L 100.0500 ####[facility] [address] [place], [address] Hematocrit (Bld) [Volume fraction] 28.5 % Low 37-47 [facility] Comment on above: Performed By: #### L 100.0500 ####[facility] [address] [place], [address] Hemoglobin (Bld) [Mass/Vol] 8.5 g/dL Low 12.0-15.0 [facility] Comment on above: Performed By: #### L 100.0500 ####[facility] [address] [place], [address] MCH (RBC) [Entitic mass] 27.2 pg Normal 27.0-32.0 [facility] Comment on above: Performed By: #### L 100.0500 ####[facility] [address] [place], [address] MCHC (RBC) [Mass/Vol] 29.8 g/dL Low 32-36 [facility] Comment on above: Performed By: #### L 100.0500 ####[facility] [address] [place], [address] MCV (RBC) [Entitic vol] 91.1 fL Normal 81-99 [facility] Comment on above: Performed By: #### L 100.0500 ####[facility] [address] [place], [address] Platelet mean volume (Bld) [Entitic vol] 9.9 fL Normal 6.2-12.0 [facility] Comment on above: Performed By: #### L 100.0500 ####[facility] [address] [place], [address] Platelets (Bld) [#/Vol] 213 10*3/uL Normal 150-450 [facility] Comment on above: Performed By: #### L 100.0500 ####[facility] [address] [place], [address] RBC (Bld) [#/Vol] 3.13 10*6/uL Low 4.2-5.4 [facility] Comment on above: Performed By: #### L 100.0500 ####[facility] [address] [place], [address] RDW SD 61.2 fl High 35.1-43.9 [facility] Comment on above: Performed By: #### L 100.0500 ####[facility] [address] [place], [address] WBC (Bld) [#/Vol] 8.1 10*3/uL Normal 4.4-11.[address] [facility] Comment on above: Performed By: #### L 100.0500 ####[facility] [address] [place], [address] Basic Metabolic Profile (BMP )on 04-04-2024 BUN/CRE 23.7 RATIO High 10-20 [facility] Comment on above: Performed By: #### L 500.2500, L100.0100 ####[facility] [address] [place], [address] CA,Total 8.8 mg/dL Normal 8.5-10.1 [facility] Comment on above: Performed By: #### L 500.2500, L100.0100 ####[facility] [address] [place], [address] Chloride [Moles/Vol] 104 mmol/L Normal 98-107 [facility] Comment on above: Performed By: #### L 500.2500, L100.0100 ####[facility] [address] [place], [address] CO2 [Moles/Vol] 28.0 mmol/L Normal 21.0-32.0 [facility] Comment on above: Performed By: #### L 500.2500, L100.0100 ####[facility] [address] [place], [address] Creatinine [Mass/Vol] 0.63 mg/dL Normal 0.55-1.02 [facility] Comment on above: Result Comment: The validity of the calculated GFR GFRAA in patients over70 years has not been determined. Clinical correlation isessential. Performed By: #### L 500.2500, L100.0100 ####[facility] [address] [place], [address] ECRCL 113.97 ml/min Normal [facility] Comment on above: Performed By: #### L 500.2500, L100.0100 ####[facility] [address] [place], [address] EST GFR - AA 125 mL/min Normal >60 [facility] Comment on above: Result Comment: Afri can Tajik GFR Calc Performed By: #### L 500.2500, L100.0100 ####[facility] [address] [place], [address] GAP 4 Low 5-15 [facility] Comment on above: Performed By: #### L 500.2500, L100.0100 ####[facility] [address] [place], [address] GFR/1.73 sq M.predicted among non-blacks MDRD (S/P/Bld) [Vol rate/Area] 103 mL/min/{1.73_m2} Normal >60 [facility] Comment on above: Result Comment: Non- GFR Calc Performed By: #### L 500.2500, L100.0100 ####[facility] [address] [place], [address] Glucose [Mass/Vol] 217 mg/dL High 74-[address] [facility] Comment on above: Result Comment: Gluc ose result greater than or equal to 200 mg/dLsuggests DIABETES MELLITUS per A.D.A. criteria. Performed By: #### L 500.2500, L100.0100 ####[facility] [address] [place], [address] Potassium [Moles/Vol] 4.1 mmol/L Normal 3.5-5.1 [facility] Comment on above: Performed By: #### L 500.2500, L100.0100 ####[facility] [address] [place], [address] Sodium [Moles/Vol] 136 mmol/L Normal 136-[address] [facility] Comment on above: Performed By: #### L 500.2500, L100.0100 ####[facility] [address] [place], [address] Urea nitrogen [Mass/Vol] 15 mg/dL Normal 7-18 [facility] Comment on above: Performed By: #### L 500.2500, L100.0100 ####[facility] [address] [place], [address] Bedside Glucoseon 04-04-2024 FINGERSTICK GLU 186 mg/dL High 74-106 [facility] Comment on above: Result Comment: ESPERANZA VILLALTA OF PATIENT CARE PER NURSING PROTOCOL Performed By: #### L 501.080 ####[facility] [address] [place], [address] FINGERSTICK GLU 248 mg/dL High 74-106 [facility] Comment on above: Result Comment: ESPERANZA GEMENT OF PATIENT CARE PER NURSING PROTOCOL Performed By: #### L 501.080 ####[facility] [address] [place], [address] FINGERSTICK GLU 199 mg/dL High 74-106 [facility] Comment on above: Result Comment: ESPERANZA GEMENT OF PATIENT CARE PER NURSING PROTOCOL Performed By: #### L 501.080 ####[facility] [address] [place], [address] FINGERSTICK GLU 214 mg/dL High -106 [facility] Comment on above: Result Comment: ESPERANZA GEMENT OF PATIENT CARE PER NURSING PROTOCOL Performed By: #### L 501.080 ####[facility] [address] [place], [address] FINGERSTICK GLU 184 mg/dL High [facility]106 [facility] Comment on above: Result Comment: ESPERANZA GEMENT OF PATIENT CARE PER NURSING PROTOCOL Performed By: #### L 501.080 ####[facility] [address] [place], [address] CBC W/Diff, Automatedon 09-1 Absolute Lymph 1.26 X10 3/uL Normal 0.83-4.51 [facility] Comment on above: Performed By: #### L 500.2500, L100.0100 ####[facility] [address] [place], [address] Absolute Neut 5.9 X10 3/uL Normal 2.0-7.7 [facility] Comment on above: Performed By: #### L 500.2500, L100.0100 ####[facility] [address] [place], [address] PLT MORPH LARGE Normal [facility] Comment on above: Performed By: #### L 500.2500, L100.0100 ####[facility] [address] [place], [address] SMEAR COMMENT SCANNED Normal [facility] Comment on above: Result Comment: LEFT SHIFT: BANDS PRESENT 1+ Performed By: #### L 500.2500, L100.0100 ####[facility] [address] [place], [address] BAND 27 High 0-5 [facility] Comment on above: Performed By: #### L 500.2500, L100.0100 ####[facility] [address] [place], [address] Lymphocytes (Bld) [#/Vol] 17 10*3/uL Low 19-41 [facility] Comment on above: Performed By: #### L 500.2500, L100.0100 ####[facility] [address] [place], [address] MONOCYTE 3 Normal 0-10 [facility] Comment on above: Performed By: #### L 500.2500, L100.0100 ####[facility] [address] [place], [address] SEGS 53 Normal 47-70 [facility] Comment on above: Performed By: #### L 500.2500, L100.0100 ####[facility] [address] [place], [address] TOTAL CELLS 100 Normal MANUAL DIFF [facility] Comment on above: Performed By: #### L 500.2500, L100.0100 ####[facility] [address] [place], [address] EGD Reporton 04-04-2024 EGD Report Normal [facility] MR/CON.PCM.GIon 04-04-2024 MR/CON.PCM.GI Normal [facility] MR/POSTOP.ANEon 04-04-2024 MR/POSTOP.ANE Normal [facility] MR/NQTFPDLD9ji 04-04-2024 MR/POSTOPAN2 Normal [facility] NSE (add)on 04-04-2024 NSE (add) Normal [facility] Comment on above: Performed By: #### P NSE. ####[facility] [address] [place], [address] Surgery Specimen Level Aicha 04-04-2024 Surgery Specimen Level IV Normal [facility] Comment on above: Performed By: #### P SUIV ####[facility] [address] [place], [address] Urine Cultureon 04-04-2024 URC Mixed Gram Positive Organisms Mcbain Count 1000-10,000 MIXC Mixed contaminants. Submit a new specimen if indicated. Normal [facility] Comment on above: Performed By: #### M 100.2200 ####[facility] [address] [place], [address] 12 Lead EKGon 04-03-2024 12 Lead EKG Normal [facility] Abdomen/Pelvis W IV Cont ONL Yon 04-03-2024 Abdomen/Pelvis W IV Cont ONLY Normal [facility] BNP,B-Type NATRIURETIC PEPTI Lucila 04-03-2024 Natriuretic peptide B (Bld) [Mass/Vol] 45.5 pg/mL Normal 0-100 [facility] Comment on above: Performed By: #### L 503.6690 ####[facility] [address] [place], [address] BRCon 04-03-2024 RC Normal [facility] Comment on above: Result Comment: [id number] ON RC TRANSFUSED 04/03/24 [id number] ON RC TRANSFUSED 04/04/24 [id number] ON RC NOT AVAILABLE Performed By: #### B TS, BRC ####[facility] [address] [place], [address] CTA Chest W/WO Contraston CTA Chest W/WO Contrast Normal [facility] Comprehensive Metabolic Prof ilon 04-03-2024 Albumin [Mass/Vol] 2.4 g/dL Low 3.2-5.[address] [facility] Comment on above: Order Comment: 'TROP ' Serial specimen #1, #2 or #3: 1 Performed By: #### L 501.4020, L501.2450, L100.0100, L500.4050 ####[facility] [address] [place], [address] Albumin/Globulin [Mass ratio] 0.5 {ratio} Low 0.9-2.4 [facility] Comment on above: Order Comment: 'TROP ' Serial specimen #1, #2 or #3: 1 Performed By: #### L 501.4020, L501.2450, L100.0100, L500.4050 ####[facility] [address] [place], [address] ALK P 176 U/L High 45-117 [facility] Comment on above: Order Comment: 'TROP ' Serial specimen #1, #2 or #3: 1 Performed By: #### L 501.4020, L501.2450, L100.0100, L500.4050 ####[facility] [address] [place], [address] ALT [Catalytic activity/Vol] 18 U/L Normal 13-56 [facility] Comment on above: Order Comment: 'TROP ' Serial specimen #1, #2 or #3: 1 Performed By: #### L 501.4020, L501.2450, L100.0100, L500.4050 ####[facility] [address] [place], [address] AST [Catalytic activity/Vol] 17 U/L Normal 15-37 [facility] Comment on above: Order Comment: 'TROP ' Serial specimen #1, #2 or #3: 1 Performed By: #### L 501.4020, L501.2450, L100.0100, L500.4050 ####[facility] [address] [place], [address] Bilirubin [Mass/Vol] 0.50 mg/dL Normal 0.20-1.00 [facility] Comment on above: Order Comment: 'TROP ' Serial specimen #1, #2 or #3: 1 Result Comment: For patients on eltrombopag therapy, use of Dimension Fitzpatrick TBIL is not recommended. Performed By: #### L 501.4020, L501.2450, L100.0100, L500.4050 ####[facility] [address] [place], [address] BUN/CRE 35.0 RATIO High 10-20 [facility] Comment on above: Order Comment: 'TROP ' Serial specimen #1, #2 or #3: 1 Performed By: #### L 501.4020, L501.2450, L100.0100, L500.4050 ####[facility] [address] [place], [address] CA,Total 8.9 mg/dL Normal 8.5-10.1 [facility] Comment on above: Order Comment: 'TROP ' Serial specimen #1, #2 or #3: 1 Performed By: #### L 501.4020, L501.2450, L100.0100, L500.4050 ####[facility] [address] [place], [address] Chloride [Moles/Vol] 103 mmol/L Normal 98-107 [facility] Comment on above: Order Comment: 'TROP ' Serial specimen #1, #2 or #3: 1 Performed By: #### L 501.4020, L501.2450, L100.0100, L500.4050 ####[facility] [address] [place], [address] CO2 [Moles/Vol] 29.0 mmol/L Normal 21.0-32.0 [facility] Comment on above: Order Comment: 'TROP ' Serial specimen #1, #2 or #3: 1 Performed By: #### L 501.4020, L501.2450, L100.0100, L500.4050 ####[facility] [address] [place], [address] Creatinine [Mass/Vol] 0.71 mg/dL Normal 0.55-1.02 [facility] Comment on above: Order Comment: 'TROP ' Serial specimen #1, #2 or #3: 1 Result Comment: The validity of the calculated GFR GFRAA in patients over70 years has not been determined. Clinical correlation isessential. Performed By: #### L 501.4020, L501.2450, L100.0100, L500.4050 ####[facility] [address] [place], [address] EST GFR - AA 108 mL/min Normal >60 [facility] Comment on above: Order Comment: 'TROP ' Serial specimen #1, #2 or #3: 1 Result Comment: Afri can Tajik GFR Calc Performed By: #### L 501.4020, L501.2450, L100.0100, L500.4050 ####[facility] [address] [place], [address] GAP 3 Low 5-15 [facility] Comment on above: Order Comment: 'TROP ' Serial specimen #1, #2 or #3: 1 Performed By: #### L 501.4020, L501.2450, L100.0100, L500.4050 ####[facility] [address] [place], [address] GFR/1.73 sq M.predicted among non-blacks MDRD (S/P/Bld) [Vol rate/Area] 90 mL/min/{1.73_m2} Normal >60 [facility] Comment on above: Order Comment: 'TROP ' Serial specimen #1, #2 or #3: 1 Result Comment: Non- GFR Calc Performed By: #### L 501.4020, L501.2450, L100.0100, L500.4050 ####[facility] [address] [place], [address] Globulin (S) [Mass/Vol] 4.5 g/dL High 2.2-4.2 [facility] Comment on above: Order Comment: 'TROP ' Serial specimen #1, #2 or #3: 1 Performed By: #### L 501.4020, L501.2450, L100.0100, L500.4050 ####[facility] [address] [place], [address] Glucose [Mass/Vol] 282 mg/dL High 74-[address] [facility] Comment on above: Order Comment: 'TROP ' Serial specimen #1, #2 or #3: 1 Result Comment: Gluc ose result greater than or equal to 200 mg/dLsuggests DIABETES MELLITUS per A.D.A. criteria. Performed By: #### L 501.4020, L501.2450, L100.0100, L500.4050 ####[facility] [address] [place], [address] Potassium [Moles/Vol] 4.4 mmol/L Normal 3.5-5.1 [facility] Comment on above: Order Comment: 'TROP ' Serial specimen #1, #2 or #3: 1 Performed By: #### L 501.4020, L501.2450, L100.0100, L500.4050 ####[facility] [address] [place], [address] Sodium [Moles/Vol] 135 mmol/L Low 136-145 [facility] Comment on above: Order Comment: 'TROP ' Serial specimen #1, #2 or #3: 1 Performed By: #### L 501.4020, L501.2450, L100.0100, L500.4050 ####[facility] [address] [place], [address] T PROT 6.9 g/dL Normal 6.4-8.2 [facility] Comment on above: Order Comment: 'TROP ' Serial specimen #1, #2 or #3: 1 Performed By: #### L 501.4020, L501.2450, L100.0100, L500.4050 ####[facility] [address] [place], [address] Urea nitrogen [Mass/Vol] 25 mg/dL High 7-18 [facility] Comment on above: Order Comment: 'TROP ' Serial specimen #1, #2 or #3: 1 Performed By: #### L 501.4020, L501.2450, L100.0100, L500.4050 ####[facility] [address] [place], [address] Emergency Department Summary on 04-03-2024 Emergency Department Summary Normal [facility] H AND P Exam - Hospitaliston 04-03-2024 H&P Exam - Hospitalist Normal [facility] HH, Hemoglobin AND Hematocri ton 04-03-2024 Hematocrit (Bld) [Volume fraction] 23.1 % Low 37-47 [facility] Comment on above: Performed By: #### L 100.0600 ####[facility] [address] [place], [address] Hemoglobin (Bld) [Mass/Vol] 6.8 g/dL Low 12.0-15.0 [facility] Comment on above: Performed By: #### L 100.0600 ####[facility] [address] [place], [address] L501.4020on 04-03-2024 TROPONIN-I HS 39 pg/mL Normal 3.0-54.0 [facility] Comment on above: Order Comment: 'TROP ' Serial specimen #1, #2 or #3: 1 Result Comment: Ronnie mcleod Note: New Test Units and Gender Specific Reference Ranges. For more information see Policy Stat Procedure Fitzpatrick High Sensitivity Troponin (TNIH) and attachments. Performed By: #### L 501.4020, L501.2450, L100.0100, L500.4050 ####[facility] [address] [place], [address] Lipaseon 04-03-2024 Lipase [Catalytic activity/Vol] 28 U/L Normal 13-75 [facility] Comment on above: Order Comment: 'TROP ' Serial specimen #1, #2 or #3: 1 Result Comment: Ronnie mcleod note:LIPASE revised reference range effective 22.New Lipase methodology. Expected to produce lower valuesthan the previous assay method.NEW Reference Range: 13 - 75 U/L Performed By: #### L 501.4020, L501.2450, L100.0100, L500.4050 ####[facility] [address] [place], [address] M100.678on 04-03-2024 M100.678 Pending SARS-CoV-2 (COVID 19) Negative INFLUENZA A Negative INFLUENZA B Negative RSV PCR Negative Normal [facility] Comment on above: Performed By: #### M 100.678 ####[facility] [address] [place], [address] Stool Occult Blood iFOBon STOB Positive Normal [facility] Comment on above: Performed By: #### M 100.7900 ####[facility] [address] [place], [address] Type AND Screenon 04-03-2024 Ab SCREEN GEL Negative Normal [facility] Comment on above: Order Comment: CMV N EG? NNumber of units to transfuse: 1Reason for Ordering Blood: AcuteAre the blood/blood products to be transfused? YIs the patient having/had surgery? YWhen ReadyNY Performed By: #### B TS, BRC ####[facility] [address] [place], [address] Urinalysis, Completeon 04-03 BACTERIA RARE Normal None Seen [facility] Comment on above: Order Comment: CLEAN CATCH Performed By: #### L 400.0001 ####[facility] [address] [place], [address] EPI,SQUAMOUS 5-10 SEEN Normal 5-10 [facility] Comment on above: Order Comment: CLEAN CATCH Performed By: #### L 400.0001 ####[facility] [address] [place], [address] WBC 50-100 SEEN Normal 0-5 [facility] Comment on above: Order Comment: CLEAN CATCH Performed By: #### L 400.0001 ####[facility] [address] [place], [address] RBC 25-50 SEEN Normal 0-5 [facility] Comment on above: Order Comment: CLEAN CATCH Performed By: #### L 400.0001 ####[facility] [address] [place], [address] Mucus Ql (Urine sed) 0 SEEN Normal [facility] Comment on above: Order Comment: CLEAN CATCH Performed By: #### L 400.0001 ####[facility] [address] [place], [address] Venous Duplex US, Unilateral on 04-03-2024 Venous Duplex US, Unilateral Normal [facility] XR WRIST MINIMUM 3 VIEWS RIG [...] 3:29:35 AM Ordering Provider: ALDA Epstein [facility] NITROFURANTOIN:SUSC:PT:CARRIE TE:ORDQN:MICon 03-16-2024 Nitrofurantoin SHAHEEN [Susc] 10,000 - 50,000 cfu/ml Enterococcus faecalis [facility] Work Phone: Nitrofurantoin SHAHEEN [Susc]on 03-16-2024 Enterococcus faecalis Enterococcus faecalis [facility] Work Phone: XR ABDOMEN APon 03-16-2024 [...] 03/16/2024 9:06:05 AM Ordering Provider: KURT PINEDA [facility] [place]) Basic Metabolic Profile (BMP )on 03-12-2024 BUN Normal 7-18 [facility] Comment on above: Result Comment: Canc elled via OM: Order cancelled - Patient discharged Performed By: #### L 100.0100, L500.2500 ####[facility] [address] [place], [address] BUN/CRE Normal 10-20 [facility] Comment on above: Result Comment: Canc elled via OM: Order cancelled - Patient discharged Performed By: #### L 100.0100, L500.2500 ####[facility] [address] [place], [address] CA,Total Normal 8.5-10.1 [facility] Comment on above: Result Comment: Canc elled via OM: Order cancelled - Patient discharged Performed By: #### L 100.0100, L500.2500 ####[facility] [address] [place], [address] CL Normal 98-107 [facility] Comment on above: Result Comment: Canc elled via OM: Order cancelled - Patient discharged Performed By: #### L 100.0100, L500.2500 ####[facility] [address] [place], [address] CO2 Normal 21.0-32.0 [facility] Comment on above: Result Comment: Canc elled via OM: Order cancelled - Patient discharged Performed By: #### L 100.0100, L500.2500 ####[facility] [address] [place], [address] CREAT,SERUM Normal 0.55-1.02 [facility] Comment on above: Result Comment: Canc elled via OM: Order cancelled - Patient discharged Performed By: #### L 100.0100, L500.2500 ####[facility] [address] [place], [address] EST GFR Normal >60 [facility] Comment on above: Result Comment: Canc elled via OM: Order cancelled - Patient discharged Performed By: #### L 100.0100, L500.2500 ####[facility] [address] [place], [address] EST GFR - AA Normal >60 [facility] Comment on above: Result Comment: Canc elled via OM: Order cancelled - Patient discharged Performed By: #### L 100.0100, L500.2500 ####[facility] [address] [place], [address] GAP Normal 5-15 [facility] Comment on above: Result Comment: Canc elled via OM: Order cancelled - Patient discharged Performed By: #### L 100.0100, L500.2500 ####[facility] [address] [place], [address] GLU Normal 74-106 [facility] Comment on above: Result Comment: Canc elled via OM: Order cancelled - Patient discharged Performed By: #### L 100.0100, L500.2500 ####[facility] [address] [place], [address] Potassium Normal 3.5-5.1 [facility] Comment on above: Result Comment: Canc elled via OM: Order cancelled - Patient discharged Performed By: #### L 100.0100, L500.2500 ####[facility] [address] [place], [address] Basic Metabolic Profile (BMP) Normal 136-145 [facility] Comment on above: Result Comment: Canc elled via OM: Order cancelled - Patient discharged Performed By: #### L 100.0100, L500.2500 ####[facility] [address] [place], [address] CBC W/Diff, Automatedon 08-2 Absolute Neut Normal 2.0-7.7 [facility] Comment on above: Result Comment: Canc elled via OM: Order cancelled - Patient discharged Performed By: #### L 100.0100, L500.2500 ####[facility] [address] [place], [address] HCT Normal 37-47 [facility] Comment on above: Result Comment: Canc elled via OM: Order cancelled - Patient discharged Performed By: #### L 100.0100, L500.2500 ####[facility] [address] [place], [address] HGB Normal 12.0-15.0 [facility] Comment on above: Result Comment: Canc elled via OM: Order cancelled - Patient discharged Performed By: #### L 100.0100, L500.2500 ####[facility] [address] [place], [address] MCH Normal 27.0-32.0 [facility] Comment on above: Result Comment: Canc elled via OM: Order cancelled - Patient discharged Performed By: #### L 100.0100, L500.2500 ####[facility] [address] [place], [address] MCHC Normal 32-36 [facility] Comment on above: Result Comment: Canc elled via OM: Order cancelled - Patient discharged Performed By: #### L 100.0100, L500.2500 ####[facility] [address] [place], [address] MCV Normal 81-99 [facility] Comment on above: Result Comment: Canc elled via OM: Order cancelled - Patient discharged Performed By: #### L 100.0100, L500.2500 ####[facility] [address] [place], [address] NEUT% Normal 47-70 [facility] Comment on above: Result Comment: Canc elled via OM: Order cancelled - Patient discharged Performed By: #### L 100.0100, L500.2500 ####[facility] [address] [place], [address] PLT Normal 150-450 [facility] Comment on above: Result Comment: Canc elled via OM: Order cancelled - Patient discharged Performed By: #### L 100.0100, L500.2500 ####[facility] [address] [place], [address] RBC Normal 4.2-5.4 [facility] Comment on above: Result Comment: Canc elled via OM: Order cancelled - Patient discharged Performed By: #### L 100.0100, L500.2500 ####[facility] [address] [place], [address] RDW CV Normal 11.6-14.6 [facility] Comment on above: Result Comment: Canc elled via OM: Order cancelled - Patient discharged Performed By: #### L 100.0100, L500.2500 ####[facility] [address] [place], [address] RDW SD Normal 35.1-43.9 [facility] Comment on above: Result Comment: Canc elled via OM: Order cancelled - Patient discharged Performed By: #### L 100.0100, L500.2500 ####[facility] [address] [place], [address] WBC Normal 4.4-11.0 [facility] Comment on above: Result Comment: Canc elled via OM: Order cancelled - Patient discharged Performed By: #### L 100.0100, L500.2500 ####[facility] [address] [place], [address] Endocrinology Visit Reporton 03-12-2024 Endocrinology Visit Report Normal [facility] Basic Metabolic Profile (BMP )on 03-11-2024 BUN Normal 7-18 [facility] Comment on above: Result Comment: Canc elled via OM: Order cancelled - Patient discharged Performed By: #### L 100.0100, L500.2500 ####[facility] [address] [place], [address] BUN/CRE Normal 10-20 [facility] Comment on above: Result Comment: Canc elled via OM: Order cancelled - Patient discharged Performed By: #### L 100.0100, L500.2500 ####[facility] [address] [place], [address] CA,Total Normal 8.5-10.1 [facility] Comment on above: Result Comment: Canc elled via OM: Order cancelled - Patient discharged Performed By: #### L 100.0100, L500.2500 ####[facility] [address] [place], [address] CL Normal 98-107 [facility] Comment on above: Result Comment: Canc elled via OM: Order cancelled - Patient discharged Performed By: #### L 100.0100, L500.2500 ####[facility] [address] [place], [address] CO2 Normal 21.0-32.0 [facility] Comment on above: Result Comment: Canc elled via OM: Order cancelled - Patient discharged Performed By: #### L 100.0100, L500.2500 ####[facility] [address] [place], [address] CREAT,SERUM Normal 0.55-1.02 [facility] Comment on above: Result Comment: Canc elled via OM: Order cancelled - Patient discharged Performed By: #### L 100.0100, L500.2500 ####[facility] [address] [place], [address] EST GFR Normal >60 [facility] Comment on above: Result Comment: Canc elled via OM: Order cancelled - Patient discharged Performed By: #### L 100.0100, L500.2500 ####[facility] [address] [place], [address] EST GFR - AA Normal >60 [facility] Comment on above: Result Comment: Canc elled via OM: Order cancelled - Patient discharged Performed By: #### L 100.0100, L500.2500 ####[facility] [address] [place], [address] GAP Normal 5-15 [facility] Comment on above: Result Comment: Canc elled via OM: Order cancelled - Patient discharged Performed By: #### L 100.0100, L500.2500 ####[facility] [address] [place], [address] GLU Normal 74-106 [facility] Comment on above: Result Comment: Canc elled via OM: Order cancelled - Patient discharged Performed By: #### L 100.0100, L500.2500 ####[facility] [address] [place], [address] Potassium Normal 3.5-5.1 [facility] Comment on above: Result Comment: Canc elled via OM: Order cancelled - Patient discharged Performed By: #### L 100.0100, L500.2500 ####[facility] [address] [place], [address] Basic Metabolic Profile (BMP) Normal 136-145 [facility] Comment on above: Result Comment: Canc elled via OM: Order cancelled - Patient discharged Performed By: #### L 100.0100, L500.2500 ####[facility] [address] [place], [address] CBC W/Diff, Automatedon 08-2 Absolute Neut Normal 2.0-7.7 [facility] Comment on above: Result Comment: Canc elled via OM: Order cancelled - Patient discharged Performed By: #### L 100.0100, L500.2500 ####[facility] [address] [place], [address] HCT Normal 37-47 [facility] Comment on above: Result Comment: Canc elled via OM: Order cancelled - Patient discharged Performed By: #### L 100.0100, L500.2500 ####[facility] [address] [place], [address] HGB Normal 12.0-15.0 [facility] Comment on above: Result Comment: Canc elled via OM: Order cancelled - Patient discharged Performed By: #### L 100.0100, L500.2500 ####[facility] [address] [place], [address] MCH Normal 27.0-32.0 [facility] Comment on above: Result Comment: Canc elled via OM: Order cancelled - Patient discharged Performed By: #### L 100.0100, L500.2500 ####[facility] [address] [place], [address] MCHC Normal 32-36 [facility] Comment on above: Result Comment: Canc elled via OM: Order cancelled - Patient discharged Performed By: #### L 100.0100, L500.2500 ####[facility] [address] [place], [address] MCV Normal 81-99 [facility] Comment on above: Result Comment: Canc elled via OM: Order cancelled - Patient discharged Performed By: #### L 100.0100, L500.2500 ####[facility] [address] [place], [address] NEUT% Normal 47-70 [facility] Comment on above: Result Comment: Canc elled via OM: Order cancelled - Patient discharged Performed By: #### L 100.0100, L500.2500 ####[facility] [address] [place], [address] PLT Normal 150-450 [facility] Comment on above: Result Comment: Canc elled via OM: Order cancelled - Patient discharged Performed By: #### L 100.0100, L500.2500 ####[facility] [address] [place], [address] RBC Normal 4.2-5.4 [facility] Comment on above: Result Comment: Canc elled via OM: Order cancelled - Patient discharged Performed By: #### L 100.0100, L500.2500 ####[facility] [address] [place], [address] RDW CV Normal 11.6-14.6 [facility] Comment on above: Result Comment: Canc elled via OM: Order cancelled - Patient discharged Performed By: #### L 100.0100, L500.2500 ####[facility] [address] [place], [address] RDW SD Normal 35.1-43.9 [facility] Comment on above: Result Comment: Canc elled via OM: Order cancelled - Patient discharged Performed By: #### L 100.0100, L500.2500 ####[facility] [address] [place], [address] WBC Normal 4.4-11.0 [facility] Comment on above: Result Comment: Canc elled via OM: Order cancelled - Patient discharged Performed By: #### L 100.0100, L500.2500 ####[facility] [address] [place], [address] Basic Metabolic Profile (BMP )on 03-10-2024 BUN Normal -18 [facility] Comment on above: Result Comment: Canc elled via OM: Order cancelled - Patient discharged Performed By: #### L 500.2500, L100.0100 ####[facility] [address] [place], [address] BUN/CRE Normal - [facility] Comment on above: Result Comment: Canc elled via OM: Order cancelled - Patient discharged Performed By: #### L 500.2500, L100.0100 ####[facility] [address] [place], [address] CA,Total Normal 8.5-10.1 [facility] Comment on above: Result Comment: Canc elled via OM: Order cancelled - Patient discharged Performed By: #### L 500.2500, L100.0100 ####[facility] [address], [address] CL Normal 98-107 [facility] Comment on above: Result Comment: Canc elled via OM: Order cancelled - Patient discharged Performed By: #### L 500.2500, L100.0100 ####[facility] [address] [place], [address] CO2 Normal 21.0-32.0 [facility] Comment on above: Result Comment: Canc elled via OM: Order cancelled - Patient discharged Performed By: #### L 500.2500, L100.0100 ####[facility] [address] [place], [address] CREAT,SERUM Normal 0.55-1.02 [facility] Comment on above: Result Comment: Canc elled via OM: Order cancelled - Patient discharged Performed By: #### L 500.2500, L100.0100 ####[facility] [address] [place], [address] EST GFR Normal >60 [facility] Comment on above: Result Comment: Canc elled via OM: Order cancelled - Patient discharged Performed By: #### L 500.2500, L100.0100 ####[facility] [address] [place], [address] EST GFR - AA Normal >60 [facility] Comment on above: Result Comment: Canc elled via OM: Order cancelled - Patient discharged Performed By: #### L 500.2500, L100.0100 ####[facility] [address] [place], [address] GAP Normal 5-15 [facility] Comment on above: Result Comment: Canc elled via OM: Order cancelled - Patient discharged Performed By: #### L 500.2500, L100.0100 ####[facility] [address] [place], [address] GLU Normal 74-106 [facility] Comment on above: Result Comment: Canc elled via OM: Order cancelled - Patient discharged Performed By: #### L 500.2500, L100.0100 ####[facility] [address] [place], [address] Potassium Normal 3.5-5.1 [facility] Comment on above: Result Comment: Canc elled via OM: Order cancelled - Patient discharged Performed By: #### L 500.2500, L100.0100 ####[facility] [address] [place], [address] Basic Metabolic Profile (BMP) Normal 136-145 [facility] Comment on above: Result Comment: Canc elled via OM: Order cancelled - Patient discharged Performed By: #### L 500.2500, L100.0100 ####[facility] [address] [place], [address] CBC W/Diff, Automatedon 08-2 0-2023 Absolute Neut Normal 2.0-7.7 [facility] Comment on above: Result Comment: Canc elled via OM: Order cancelled - Patient discharged Performed By: #### L 500.2500, L100.0100 ####[facility] [address] [place], [address] HCT Normal 37-47 [facility] Comment on above: Result Comment: Canc elled via OM: Order cancelled - Patient discharged Performed By: #### L 500.2500, L100.0100 ####[facility] [address] [place], [address] HGB Normal 12.0-15.0 [facility] Comment on above: Result Comment: Canc elled via OM: Order cancelled - Patient discharged Performed By: #### L 500.2500, L100.0100 ####[facility] [address] [place], [address] MCH Normal 27.0-32.0 [facility] Comment on above: Result Comment: Canc elled via OM: Order cancelled - Patient discharged Performed By: #### L 500.2500, L100.0100 ####[facility] [address] [place], [address] MCHC Normal 32-36 [facility] Comment on above: Result Comment: Canc elled via OM: Order cancelled - Patient discharged Performed By: #### L 500.2500, L100.0100 ####[facility] [address] [place], [address] MCV Normal 81-99 [facility] Comment on above: Result Comment: Canc elled via OM: Order cancelled - Patient discharged Performed By: #### L 500.2500, L100.0100 ####[facility] [address] [place], [address] NEUT% Normal 47-70 [facility] Comment on above: Result Comment: Canc elled via OM: Order cancelled - Patient discharged Performed By: #### L 500.2500, L100.0100 ####[facility] [address] [place], [address] PLT Normal 150-450 [facility] Comment on above: Result Comment: Canc elled via OM: Order cancelled - Patient discharged Performed By: #### L 500.2500, L100.0100 ####[facility] [address] [place], [address] RBC Normal 4.2-5.4 [facility] Comment on above: Result Comment: Canc elled via OM: Order cancelled - Patient discharged Performed By: #### L 500.2500, L100.0100 ####[facility] [address] [place], [address] RDW CV Normal 11.6-14.6 [facility] Comment on above: Result Comment: Canc elled via OM: Order cancelled - Patient discharged Performed By: #### L 500.2500, L100.0100 ####[facility] [address] [place], [address] RDW SD Normal 35.1-43.9 [facility] Comment on above: Result Comment: Canc elled via OM: Order cancelled - Patient discharged Performed By: #### L 500.2500, L100.0100 ####[facility] [address] [place], [address] WBC Normal 4.4-11.0 [facility] Comment on above: Result Comment: Canc elled via OM: Order cancelled - Patient discharged Performed By: #### L 500.2500, L100.0100 ####[facility] [facility] [address] [place], [address] Basic Metabolic Profile (BMP )on 03-09-2024 BUN Normal 7-18 [facility] Comment on above: Result Comment: Canc elled via OM: Order cancelled - Patient discharged Performed By: #### L 100.0100, L500.2500 ####[facility] [address] [place], [address] BUN/CRE Normal 10-20 [facility] Comment on above: Result Comment: Canc elled via OM: Order cancelled - Patient discharged Performed By: #### L 100.0100, L500.2500 ####[facility] [address] [place], [address] CA,Total Normal 8.5-10.1 [facility] Comment on above: Result Comment: Canc elled via OM: Order cancelled - Patient discharged Performed By: #### L 100.0100, L500.2500 ####[facility] [address] [place], [address] CL Normal 98-107 [facility] Comment on above: Result Comment: Canc elled via OM: Order cancelled - Patient discharged Performed By: #### L 100.0100, L500.2500 ####[facility] [address] [place], [address] CO2 Normal 21.0-32.0 [facility] Comment on above: Result Comment: Canc elled via OM: Order cancelled - Patient discharged Performed By: #### L 100.0100, L500.2500 ####[facility] [address] [place], [address] CREAT,SERUM Normal 0.55-1.02 [facility] Comment on above: Result Comment: Canc elled via OM: Order cancelled - Patient discharged Performed By: #### L 100.0100, L500.2500 ####[facility] [address] [place], [address] EST GFR Normal >60 [facility] Comment on above: Result Comment: Canc elled via OM: Order cancelled - Patient discharged Performed By: #### L 100.0100, L500.2500 ####[facility] [address] [place], [address] EST GFR - AA Normal >60 [facility] Comment on above: Result Comment: Canc elled via OM: Order cancelled - Patient discharged Performed By: #### L 100.0100, L500.2500 ####[facility] [address] [place], [address] GAP Normal 5-15 [facility] Comment on above: Result Comment: Canc elled via OM: Order cancelled - Patient discharged Performed By: #### L 100.0100, L500.2500 ####[facility] [address] [place], [address] GLU Normal 74-106 [facility] Comment on above: Result Comment: Canc elled via OM: Order cancelled - Patient discharged Performed By: #### L 100.0100, L500.2500 ####[facility] [address] [place], [address] Potassium Normal 3.5-5.1 [facility] Comment on above: Result Comment: Canc elled via OM: Order cancelled - Patient discharged Performed By: #### L 100.0100, L500.2500 ####[facility] [address] [place], [address] Basic Metabolic Profile (BMP) Normal 136-145 [facility] Comment on above: Result Comment: Canc elled via OM: Order cancelled - Patient discharged Performed By: #### L 100.0100, L500.2500 ####[facility] [address] [place], [address] CBC W/Diff, Automatedon 02-19 Absolute Neut Normal 2.0-7.7 [facility] Comment on above: Result Comment: Canc elled via OM: Order cancelled - Patient discharged Performed By: #### L 100.0100, L500.2500 ####[facility] [address] [place], [address] HCT Normal 37-47 [facility] Comment on above: Result Comment: Canc elled via OM: Order cancelled - Patient discharged Performed By: #### L 100.0100, L500.2500 ####[facility] [address] [place], [address] HGB Normal 12.0-15.0 [facility] Comment on above: Result Comment: Canc elled via OM: Order cancelled - Patient discharged Performed By: #### L 100.0100, L500.2500 ####[facility] [address] [place], [address] MCH Normal 27.0-32.0 [facility] Comment on above: Result Comment: Canc elled via OM: Order cancelled - Patient discharged Performed By: #### L 100.0100, L500.2500 ####[facility] [address] [place], [address] MCHC Normal 32-36 [facility] Comment on above: Result Comment: Canc elled via OM: Order cancelled - Patient discharged Performed By: #### L 100.0100, L500.2500 ####[facility] [address] [place], [address] MCV Normal 81-99 [facility] Comment on above: Result Comment: Canc elled via OM: Order cancelled - Patient discharged Performed By: #### L 100.0100, L500.2500 ####[facility] [address] [place], [address] NEUT% Normal 47-70 [facility] Comment on above: Result Comment: Canc elled via OM: Order cancelled - Patient discharged Performed By: #### L 100.0100, L500.2500 ####[facility] [address] [place], [address] PLT Normal 150-450 [facility] Comment on above: Result Comment: Canc elled via OM: Order cancelled - Patient discharged Performed By: #### L 100.0100, L500.2500 ####[facility] [address] [place], [address] RBC Normal 4.2-5.4 [facility] Comment on above: Result Comment: Canc elled via OM: Order cancelled - Patient discharged Performed By: #### L 100.0100, L500.2500 ####[facility] [address] [place], [address] RDW CV Normal 11.6-14.6 [facility] Comment on above: Result Comment: Canc elled via OM: Order cancelled - Patient discharged Performed By: #### L 100.0100, L500.2500 ####[facility] [address] [place], [address] RDW SD Normal 35.1-43.9 [facility] Comment on above: Result Comment: Canc elled via OM: Order cancelled - Patient discharged Performed By: #### L 100.0100, L500.2500 ####[facility] [address] [place], [address] WBC Normal 4.4-11.0 [facility] Comment on above: Result Comment: Canc elled via OM: Order cancelled - Patient discharged Performed By: #### L 100.0100, L500.2500 ####[facility] [address] [place], [address] Basic Metabolic Profile (BMP )on 03-08-2024 BUN Normal -18 [facility] Comment on above: Result Comment: Canc elled via OM: Order cancelled - Patient discharged Performed By: #### L 100.0100, L500.2500 ####[facility] [address] [place], [address] BUN/CRE Normal 10-20 [facility] Comment on above: Result Comment: Canc elled via OM: Order cancelled - Patient discharged Performed By: #### L 100.0100, L500.2500 ####[facility] [address] [place], [address] CA,Total Normal 8.5-10.1 [facility] Comment on above: Result Comment: Canc elled via OM: Order cancelled - Patient discharged Performed By: #### L 100.0100, L500.2500 ####[facility] [address] [place], [address] CL Normal 98-107 [facility] Comment on above: Result Comment: Canc elled via OM: Order cancelled - Patient discharged Performed By: #### L 100.0100, L500.2500 ####[facility] [address] [place], [address] CO2 Normal 21.0-32.0 [facility] Comment on above: Result Comment: Canc elled via OM: Order cancelled - Patient discharged Performed By: #### L 100.0100, L500.2500 ####[facility] [address] [place], [address] CREAT,SERUM Normal 0.55-1.02 [facility] Comment on above: Result Comment: Canc elled via OM: Order cancelled - Patient discharged Performed By: #### L 100.0100, L500.2500 ####[facility] [address] [place], [address] EST GFR Normal >60 [facility] Comment on above: Result Comment: Canc elled via OM: Order cancelled - Patient discharged Performed By: #### L 100.0100, L500.2500 ####[facility] [address] [place], [address] EST GFR - AA Normal >60 [facility] Comment on above: Result Comment: Canc elled via OM: Order cancelled - Patient discharged Performed By: #### L 100.0100, L500.2500 ####[facility] [address] [place], [address] GAP Normal 5-15 [facility] Comment on above: Result Comment: Canc elled via OM: Order cancelled - Patient discharged Performed By: #### L 100.0100, L500.2500 ####[facility] [address] [place], [address] GLU Normal 74-106 [facility] Comment on above: Result Comment: Canc elled via OM: Order cancelled - Patient discharged Performed By: #### L 100.0100, L500.2500 ####[facility] [address] [place], [address] Potassium Normal 3.5-5.1 [facility] Comment on above: Result Comment: Canc elled via OM: Order cancelled - Patient discharged Performed By: #### L 100.0100, L500.2500 ####[facility] [address] [place], [address] Basic Metabolic Profile (BMP) Normal 136-145 [facility] Comment on above: Result Comment: Canc elled via OM: Order cancelled - Patient discharged Performed By: #### L 100.0100, L500.2500 ####[facility] [address] [place], [address] CBC W/Diff, Automatedon - Absolute Neut Normal 2.0-7.7 [facility] Comment on above: Result Comment: Canc elled via OM: Order cancelled - Patient discharged Performed By: #### L 100.0100, L500.2500 ####[facility] [address] [place], [address] HCT Normal 37-47 [facility] Comment on above: Result Comment: Canc elled via OM: Order cancelled - Patient discharged Performed By: #### L 100.0100, L500.2500 ####[facility] [address] [place], [address] HGB Normal 12.0-15.0 [facility] Comment on above: Result Comment: Canc elled via OM: Order cancelled - Patient discharged Performed By: #### L 100.0100, L500.2500 ####[facility] [address] [place], [address] MCH Normal 27.0-32.0 [facility] Comment on above: Result Comment: Canc elled via OM: Order cancelled - Patient discharged Performed By: #### L 100.0100, L500.2500 ####[facility] [address] [place], [address] MCHC Normal 32-36 [facility] Comment on above: Result Comment: Canc elled via OM: Order cancelled - Patient discharged Performed By: #### L 100.0100, L500.2500 ####[facility] [address] [place], [address] MCV Normal 81-99 [facility] Comment on above: Result Comment: Canc elled via OM: Order cancelled - Patient discharged Performed By: #### L 100.0100, L500.2500 ####[facility] [address] [place], [address] NEUT% Normal 47-70 [facility] Comment on above: Result Comment: Canc elled via OM: Order cancelled - Patient discharged Performed By: #### L 100.0100, L500.2500 ####[facility] [address] [place], [address] PLT Normal 150-450 [facility] Comment on above: Result Comment: Canc elled via OM: Order cancelled - Patient discharged Performed By: #### L 100.0100, L500.2500 ####[facility] [address] [place], [address] RBC Normal 4.2-5.4 [facility] Comment on above: Result Comment: Canc elled via OM: Order cancelled - Patient discharged Performed By: #### L 100.0100, L500.2500 ####[facility] [address] [place], [address] RDW CV Normal 11.6-14.6 [facility] Comment on above: Result Comment: Canc elled via OM: Order cancelled - Patient discharged Performed By: #### L 100.0100, L500.2500 ####[facility] [address] [place], [address] RDW SD Normal 35.1-43.9 [facility] Comment on above: Result Comment: Canc elled via OM: Order cancelled - Patient discharged Performed By: #### L 100.0100, L500.2500 ####[facility] [address] [place], [address] WBC Normal 4.4-11.0 [facility] Comment on above: Result Comment: Canc elled via OM: Order cancelled - Patient discharged Performed By: #### L 100.0100, L500.2500 ####[facility] [address] [place], [address] Basic Metabolic Profile (BMP )on 03-07-2024 BUN/CRE 22.7 RATIO High 10-20 [facility] Comment on above: Performed By: #### L 100.0100, L500.2500 ####[facility] [address] [place], [address] CA,Total 8.7 mg/dL Normal 8.5-10.1 [facility] Comment on above: Performed By: #### L 100.0100, L500.2500 ####[facility] [address] [place], [address] Chloride [Moles/Vol] 104 mmol/L Normal 98-107 [facility] Comment on above: Performed By: #### L 100.0100, L500.2500 ####[facility] [address] [place], [address] CO2 [Moles/Vol] 28.0 mmol/L Normal 21.0-32.0 [facility] Comment on above: Performed By: #### L 100.0100, L500.2500 ####[facility] [address] [place], [address] Creatinine [Mass/Vol] 0.66 mg/dL Normal 0.55-1.02 [facility] Comment on above: Result Comment: The validity of the calculated GFR GFRAA in patients over70 years has not been determined. Clinical correlation isessential. Performed By: #### L 100.0100, L500.2500 ####[facility] [address] [place], [address] ECRCL 108.38 ml/min Normal [facility] Comment on above: Performed By: #### L 100.0100, L500.2500 ####[facility] [address] [place], [address] EST GFR - AA 118 mL/min Normal >60 [facility] Comment on above: Result Comment: Afri can Tajik GFR Calc Performed By: #### L 100.0100, L500.2500 ####[facility] [address] [place], [address] GAP 5 Normal 5-15 [facility] Comment on above: Performed By: #### L 100.0100, L500.2500 ####[facility] [address] [place], [address] GFR/1.73 sq M.predicted among non-blacks MDRD (S/P/Bld) [Vol rate/Area] 98 mL/min/{1.73_m2} Normal >60 [facility] Comment on above: Result Comment: Non- GFR Calc Performed By: #### L 100.0100, L500.2500 ####[facility] [address] [place], [address] Glucose [Mass/Vol] 212 mg/dL High 74-[address] [facility] Comment on above: Result Comment: Gluc ose result greater than or equal to 200 mg/dLsuggests DIABETES MELLITUS per A.D.A. criteria. Performed By: #### L 100.0100, L500.2500 ####[facility] [address] [place], [address] Potassium [Moles/Vol] 4.0 mmol/L Normal 3.5-5.1 [facility] Comment on above: Performed By: #### L 100.0100, L500.2500 ####[facility] [address] [place], [address] Sodium [Moles/Vol] 137 mmol/L Normal 136-[address] [facility] Comment on above: Performed By: #### L 100.0100, L500.2500 ####[facility] [address] [place], [address] Urea nitrogen [Mass/Vol] 15 mg/dL Normal 7-18 [facility] Comment on above: Performed By: #### L 100.0100, L500.2500 ####[facility] [address] [place], [address] Bedside Glucoseon 03-07-2023 FINGERSTICK GLU 287 mg/dL High 74-106 [facility] Comment on above: Result Comment: ESPERANZA GEMENT OF PATIENT CARE PER NURSING PROTOCOL Performed By: #### L 501.080 ####[facility] [address] [place], [address] FINGERSTICK GLU 182 mg/dL High 74-106 [facility] Comment on above: Result Comment: ESPERANZA GEMENT OF PATIENT CARE PER NURSING PROTOCOL Performed By: #### L 501.080 ####[facility] [address] [place], [address] CBC W/Diff, Automatedon 08- Absolute Lymph 2.79 X10 3/uL Normal 0.83-4.51 [facility] Comment on above: Performed By: #### L 100.0100, L500.2500 ####[facility] [address] [place], [address] Absolute Neut 4.6 X10 3/uL Normal 2.0-7.7 [facility] Comment on above: Performed By: #### L 100.0100, L500.2500 ####[facility] [address] [place], [address] Basophils/100 WBC (Bld) 0.3 % Normal 0-1 [facility] Comment on above: Performed By: #### L 100.0100, L500.2500 ####[facility] [address] [place], [address] Eosinophils/100 WBC (Bld) 0.3 % Normal 0-5 [facility] Comment on above: Performed By: #### L 100.0100, L500.2500 ####[facility] [address] [place], [address] Erythrocyte distribution width (RBC) [Ratio] 15.9 % High 11.6-14.6 [facility] Comment on above: Performed By: #### L 100.0100, L500.2500 ####[facility] [address] [place], [address] Hematocrit (Bld) [Volume fraction] 36.8 % Low 37-47 [facility] Comment on above: Performed By: #### L 100.0100, L500.2500 ####[facility] [address] [place], [address] Hemoglobin (Bld) [Mass/Vol] 11.2 g/dL Low 12.0-15.0 [facility] Comment on above: Performed By: #### L 100.0100, L500.2500 ####[facility] [address] [place], [address] IG% 1.300 High 0.0-0.9 [facility] Comment on above: Result Comment: IG% - Immature Granulocytes (promyelocytes, myelocytes andmetamyelocytes) > 1% indicates that a LEFT SHIFT is Present. Performed By: #### L 100.0100, L500.2500 ####[facility] [address] [place], [address] Lymphocytes/100 WBC (Bld) 35.2 % Normal 19-41 [facility] Comment on above: Performed By: #### L 100.0100, L500.2500 ####[facility] [address] [place], [address] MCH (RBC) [Entitic mass] 26.2 pg Low 27.0-32.0 [facility] Comment on above: Performed By: #### L 100.0100, L500.2500 ####[facility] [address] [place], [address] MCHC (RBC) [Mass/Vol] 30.4 g/dL Low 32-36 [facility] Comment on above: Performed By: #### L 100.0100, L500.2500 ####[facility] [address] [place], [address] MCV (RBC) [Entitic vol] 86.2 fL Normal 81-99 [facility] Comment on above: Performed By: #### L 100.0100, L500.2500 ####[facility] [address] [place], [address] Monocytes/100 WBC (Bld) 5.0 % Normal 0-10 [facility] Comment on above: Performed By: #### L 100.0100, L500.2500 ####[facility] [address] [place], [address] Neutrophils/100 WBC (Bld) 57.9 % Normal 47-70 [facility] Comment on above: Performed By: #### L 100.0100, L500.2500 ####[facility] [address] [place], [address] Nucleated RBC (Bld) [#/Vol] 0 10*3/uL Normal 0-5 [facility] Comment on above: Performed By: #### L 100.0100, L500.2500 ####[facility] [address] [place], [address] Platelet mean volume (Bld) [Entitic vol] 10.5 fL Normal 6.2-12.0 [facility] Comment on above: Performed By: #### L 100.0100, L500.2500 ####[facility] [address] [place], [address] Platelets (Bld) [#/Vol] 190 10*3/uL Normal 150-450 [facility] Comment on above: Performed By: #### L 100.0100, L500.2500 ####[facility] [address] [place], [address] RBC (Bld) [#/Vol] 4.27 10*6/uL Normal 4.2-5.4 [facility] Comment on above: Performed By: #### L 100.0100, L500.2500 ####[facility] [address] [place], [address] RDW SD 49.9 fl High 35.1-43.9 [facility] Comment on above: Performed By: #### L 100.0100, L500.2500 ####[facility] [address] [place], [address] WBC (Bld) [#/Vol] 7.9 10*3/uL Normal 4.4-11.[address] [facility] Comment on above: Performed By: #### L 100.0100, L500.2500 ####[facility] [address] [place], [address] Discharge Instructionon 02-19 Discharge Instruction Normal [facility] Urine Cultureon 03-07-2024 URC Culture exhibits no growth. Normal [facility] Comment on above: Performed By: #### M 100.2200 ####[facility] [address] [place], [address] Basic Metabolic Profile (BMP )on 03-06-2024 BUN/CRE 22.2 RATIO High 10-20 [facility] Comment on above: Performed By: #### L 100.0100, L500.2500 ####[facility] [address] [place], [address] CA,Total 8.7 mg/dL Normal 8.5-10.1 [facility] Comment on above: Performed By: #### L 100.0100, L500.2500 ####[facility] [address] [place], [address] Chloride [Moles/Vol] 106 mmol/L Normal 98-107 [facility] Comment on above: Performed By: #### L 100.0100, L500.2500 ####[facility] [address] [place], [address] CO2 [Moles/Vol] 29.0 mmol/L Normal 21.0-32.0 [facility] Comment on above: Performed By: #### L 100.0100, L500.2500 ####[facility] [address] [place], [address] Creatinine [Mass/Vol] 0.68 mg/dL Normal 0.55-1.02 [facility] Comment on above: Result Comment: The validity of the calculated GFR GFRAA in patients over70 years has not been determined. Clinical correlation isessential. Performed By: #### L 100.0100, L500.2500 ####[facility] [address] [place], [address] ECRCL 104.44 ml/min Normal [facility] Comment on above: Performed By: #### L 100.0100, L500.2500 ####[facility] [address] [place], [address] EST GFR - AA 115 mL/min Normal >60 [facility] Comment on above: Result Comment: Afri can [place] GFR Calc Performed By: #### L 100.0100, L500.2500 ####[facility] [address] [place], [address] GAP 3 Low 5-15 [facility] Comment on above: Performed By: #### L 100.0100, L500.2500 ####[facility] [address] [place], [address] GFR/1.73 sq M.predicted among non-blacks MDRD (S/P/Bld) [Vol rate/Area] 95 mL/min/{1.73_m2} Normal >60 [facility] Comment on above: Result Comment: Non- GFR Calc Performed By: #### L 100.0100, L500.2500 ####[facility] [address] [place], [address] Glucose [Mass/Vol] 72 mg/dL Low 74-[address] [facility] Comment on above: Performed By: #### L 100.0100, L500.2500 ####[facility] [address] [place], [address] Potassium [Moles/Vol] 3.7 mmol/L Normal 3.5-5.1 [facility] Comment on above: Performed By: #### L 100.0100, L500.2500 ####[facility] [address] [place], [address] Sodium [Moles/Vol] 138 mmol/L Normal 136-[address] [facility] Comment on above: Performed By: #### L 100.0100, L500.2500 ####[facility] [address] [place], [address] Urea nitrogen [Mass/Vol] 15 mg/dL Normal 7-18 [facility] Comment on above: Performed By: #### L 100.0100, L500.2500 ####[facility] [address] [place], [address] Bedside Glucoseon 03-06-2024 FINGERSTICK GLU 309 mg/dL High 74-106 [facility] Comment on above: Result Comment: ESPERANZA VILLALTA OF PATIENT CARE PER NURSING PROTOCOL Performed By: #### L 501.080 ####[facility] [address] [place], [address] FINGERSTICK GLU 255 mg/dL High 74-106 [facility] Comment on above: Result Comment: ESPERANZA GEMENT OF PATIENT CARE PER NURSING PROTOCOL Performed By: #### L 501.080 ####[facility] [address] [place], [address] FINGERSTICK GLU 118 mg/dL High 74-106 [facility] Comment on above: Result Comment: ESPERANZA GEMENT OF PATIENT CARE PER NURSING PROTOCOL Performed By: #### L 501.080 ####[facility] [address] [place], [address] FINGERSTICK GLU 69 mg/dL Low 74-106 [facility] Comment on above: Result Comment: ESPERANZA GEMENT OF PATIENT CARE PER NURSING PROTOCOL Performed By: #### L 501.080 ####[facility] [address] [place], [address] CBC W/Diff, Automatedon 08-07 27-2023 Absolute Lymph 2.59 X10 3/uL Normal 0.83-4.51 [facility] Comment on above: Performed By: #### L 100.0100, L500.2500 ####[facility] [address] [place], [address] Absolute Neut 3.5 X10 3/uL Normal 2.0-7.7 [facility] Comment on above: Performed By: #### L 100.0100, L500.2500 ####[facility] [address] [place], [address] Basophils/100 WBC (Bld) 0.8 % Normal 0-1 [facility] Comment on above: Performed By: #### L 100.0100, L500.2500 ####[facility] [address] [place], [address] Eosinophils/100 WBC (Bld) 0.8 % Normal 0-5 [facility] Comment on above: Performed By: #### L 100.0100, L500.2500 ####[facility] [address] [place], [address] Erythrocyte distribution width (RBC) [Ratio] 15.7 % High 11.6-14.6 [facility] Comment on above: Performed By: #### L 100.0100, L500.2500 ####[facility] [address] [place], [address] Hematocrit (Bld) [Volume fraction] 36.7 % Low 37-47 [facility] Comment on above: Performed By: #### L 100.0100, L500.2500 ####[facility] [address] [place], [address] Hemoglobin (Bld) [Mass/Vol] 11.2 g/dL Low 12.0-15.0 [facility] Comment on above: Performed By: #### L 100.0100, L500.2500 ####[facility] [address] [place], [address] IG% 1.400 High 0.0-0.9 [facility] Comment on above: Result Comment: IG% - Immature Granulocytes (promyelocytes, myelocytes andmetamyelocytes) > 1% indicates that a LEFT SHIFT is Present. Performed By: #### L 100.0100, L500.2500 ####[facility] [address] [place], [address] Lymphocytes/100 WBC (Bld) 39.2 % Normal 19-41 [facility] Comment on above: Performed By: #### L 100.0100, L500.2500 ####[facility] [address] [place], [address] MCH (RBC) [Entitic mass] 26.4 pg Low 27.0-32.0 [facility] Comment on above: Performed By: #### L 100.0100, L500.2500 ####[facility] [address] [place], [address] MCHC (RBC) [Mass/Vol] 30.5 g/dL Low 32-36 [facility] Comment on above: Performed By: #### L 100.0100, L500.2500 ####[facility] [address] [place], [address] MCV (RBC) [Entitic vol] 86.4 fL Normal 81-99 [facility] Comment on above: Performed By: #### L 100.0100, L500.2500 ####[facility] [address] [place], [address] Monocytes/100 WBC (Bld) 5.6 % Normal 0-10 [facility] Comment on above: Performed By: #### L 100.0100, L500.2500 ####[facility] [address] [place], [address] Neutrophils/100 WBC (Bld) 52.2 % Normal 47-70 [facility] Comment on above: Performed By: #### L 100.0100, L500.2500 ####[facility] [address] [place], [address] Nucleated RBC (Bld) [#/Vol] 0 10*3/uL Normal 0-5 [facility] Comment on above: Performed By: #### L 100.0100, L500.2500 ####[facility] [address] [place], [address] Platelet mean volume (Bld) [Entitic vol] 10.6 fL Normal 6.2-12.0 [facility] Comment on above: Performed By: #### L 100.0100, L500.2500 ####[facility] [address] [place], [address] Platelets (Bld) [#/Vol] 180 10*3/uL Normal 150-450 [facility] Comment on above: Performed By: #### L 100.0100, L500.2500 ####[facility] [address] [place], [address] RBC (Bld) [#/Vol] 4.25 10*6/uL Normal 4.2-5.4 [facility] Comment on above: Performed By: #### L 100.0100, L500.2500 ####[facility] [address] [place], [address] RDW SD 49.4 fl High 35.1-43.9 [facility] Comment on above: Performed By: #### L 100.0100, L500.2500 ####[facility] [address] [place], [address] WBC (Bld) [#/Vol] 6.6 10*3/uL Normal 4.4-11.[address] [facility] Comment on above: Performed By: #### L 100.0100, L500.2500 ####[facility] [address] [place], [address] Urinalysis, Completeon 03-06 BACTERIA 1+ /hpf Normal None Seen [facility] Comment on above: Order Comment: CLEAN CATCH Performed By: #### L 400.0001 ####[facility] [address] [place], [address] CAST,FINE GRAN 0 SEEN Normal 0-5 [facility] Comment on above: Order Comment: CLEAN CATCH Performed By: #### L 400.0001 ####[facility] [address] [place], [address] RBC > 100 SEEN Normal 0-5 [facility] Comment on above: Order Comment: CLEAN CATCH Performed By: #### L 400.0001 ####[facility] [address] [place], [address] WBC 50-100 SEEN Normal 0-5 [facility] Comment on above: Order Comment: CLEAN CATCH Performed By: #### L 400.0001 ####[facility] [address] [place], [address] BILIRUBIN URINE Negative Normal Negative [facility] Comment on above: Order Comment: CLEAN CATCH Performed By: #### L 400.0001 ####[facility] [address] [facility] [address] Clarity (U) Cloudy Normal Clear [facility] Comment on above: Order Comment: CLEAN CATCH Performed By: #### L 400.0001 ####[facility] [address] [facility] [address] Color (U) Yellow Normal Yellow [facility] Comment on above: Order Comment: CLEAN CATCH Performed By: #### L 400.0001 ####[facility] [address] [place], [address] GLUCOSE, UR Normal Normal Normal [facility] Comment on above: Order Comment: CLEAN CATCH Performed By: #### L 400.0001 ####[facility] [address] [place], [address] KETONE UR Negative Normal Negative [facility] Comment on above: Order Comment: CLEAN CATCH Performed By: #### L 400.0001 ####[facility] [address] [place], [address] LEUK ESTERASE 500 /ul Abnormal Negative [facility] Comment on above: Order Comment: CLEAN CATCH Performed By: #### L 400.0001 ####[facility] [address] [place], [address] Nitrite Ql (U) Negative Normal Negative [facility] Comment on above: Order Comment: CLEAN CATCH Performed By: #### L 400.0001 ####[facility] [address] [place], [address] OCCULT BLOOD-UR 150 /ul Abnormal Negative [facility] Comment on above: Order Comment: CLEAN CATCH Performed By: #### L 400.0001 ####[facility] [address] [place], [address] pH UR 6.0 Normal 5.0 - 8.0 [facility] Comment on above: Order Comment: CLEAN CATCH Performed By: #### L 400.0001 ####[facility] [address] [place], [address] PROT DIPSTX Negative Normal Negative [facility] Comment on above: Order Comment: CLEAN CATCH Performed By: #### L 400.0001 ####[facility] [address] [place], [address] SP.GR. DIPSTX 1.025 Normal 1.002-1.030 [facility] Comment on above: Order Comment: CLEAN CATCH Performed By: #### L 400.0001 ####[facility] [address] [place], [address] UROBILI Normal Normal Normal [facility] Comment on above: Order Comment: CLEAN CATCH Performed By: #### L 400.0001 ####[facility] [address] [place], [address] EPI,SQUAMOUS 0 SEEN Normal 5-10 [facility] Comment on above: Order Comment: CLEAN CATCH Performed By: #### L 400.0001 ####[facility] [address] [place], [address] Mucus Ql (Urine sed) 0 SEEN Normal [facility] Comment on above: Order Comment: CLEAN CATCH Performed By: #### L 400.0001 ####[facility] [address] [place], [address] Bedside Glucoseon 03-05-2024 FINGERSTICK GLU 223 mg/dL High 74-106 [facility] Comment on above: Result Comment: ESPERANZA VILLALTA OF PATIENT CARE PER NURSING PROTOCOL Performed By: #### L 501.080 ####[facility] [address] [place], [address] FINGERSTICK GLU 257 mg/dL High [address] [place] [address] Comment on above: Result Comment: ESPERANZA GEMENT OF PATIENT CARE PER NURSING PROTOCOL Performed By: #### L 501.080 ####[facility] [address] [place], [address] FINGERSTICK GLU 189 mg/dL High [address] [place] [address] Comment on above: Result Comment: ESPERANZA GEMENT OF PATIENT CARE PER NURSING PROTOCOL Performed By: #### L 501.080 ####[facility] [address] [place], [address] FINGERSTICK GLU 138 mg/dL High [address] [place] [address] Comment on above: Result Comment: ESPERANZA GEMENT OF PATIENT CARE PER NURSING PROTOCOL Performed By: #### L 501.080 ####[facility] [address] [place], [address] FINGERSTICK GLU 272 mg/dL High [address] [place] [address] Comment on above: Result Comment: ESPERANZA GEMENT OF PATIENT CARE PER NURSING PROTOCOL Performed By: #### L 501.080 ####[facility] [address] [place], [address] CBC W/Diff, Automatedon 02-19 Absolute Lymph 1.15 X10 3/uL Normal 0.83-4.51 [facility] Comment on above: Performed By: #### L 501.5200, L501.9985, L500.4050, L501.9520, L100.0100 ####[facility] [address] [place], [address] Absolute Neut 4.6 X10 3/uL Normal 2.0-7.7 [facility] Comment on above: Performed By: #### L 501.5200, L501.9985, L500.4050, L501.9520, L100.0100 ####[facility] [address] [place], [address] Basophils/100 WBC (Bld) 1.1 % High 0-1 [facility] Comment on above: Performed By: #### L 501.5200, L501.9985, L500.4050, L501.9520, L100.0100 ####[facility] [address] [place], [address] Eosinophils/100 WBC (Bld) 0.2 % Normal 0-5 [facility] Comment on above: Performed By: #### L 501.5200, L501.9985, L500.4050, L501.9520, L100.0100 ####[facility] [address] [place], [address] Erythrocyte distribution width (RBC) [Ratio] 15.9 % High 11.6-14.6 [facility] Comment on above: Performed By: #### L 501.5200, L501.9985, L500.4050, L501.9520, L100.0100 ####[facility] [address] [place], [address] Hematocrit (Bld) [Volume fraction] 38.8 % Normal 37-47 [facility] Comment on above: Performed By: #### L 501.5200, L501.9985, L500.4050, L501.9520, L100.0100 ####[facility] [address] [place], [address] Hemoglobin (Bld) [Mass/Vol] 11.8 g/dL Low 12.0-15.0 [facility] Comment on above: Performed By: #### L 501.5200, L501.9985, L500.4050, L501.9520, L100.0100 ####[facility] [address] [place], [address] IG% 1.700 High 0.0-0.9 [facility] Comment on above: Result Comment: IG% - Immature Granulocytes (promyelocytes, myelocytes andmetamyelocytes) > 1% indicates that a LEFT SHIFT is Present. Performed By: #### L 501.5200, L501.9985, L500.4050, L501.9520, L100.0100 ####[facility] [address] [place], [address] Lymphocytes/100 WBC (Bld) 18.0 % Low 19-41 [facility] Comment on above: Performed By: #### L 501.5200, L501.9985, L500.4050, L501.9520, L100.0100 ####[facility] [address] [place], [address] MCH (RBC) [Entitic mass] 26.5 pg Low 27.0-32.0 [facility] Comment on above: Performed By: #### L 501.5200, L501.9985, L500.4050, L501.9520, L100.0100 ####[facility] [address] [place], [address] MCHC (RBC) [Mass/Vol] 30.4 g/dL Low 32-36 [facility] Comment on above: Performed By: #### L 501.5200, L501.9985, L500.4050, L501.9520, L100.0100 ####[facility] [address] [place], [address] MCV (RBC) [Entitic vol] 87.0 fL Normal 81-99 [facility] Comment on above: Performed By: #### L 501.5200, L501.9985, L500.4050, L501.9520, L100.0100 ####[facility] [address] [place], [address] Monocytes/100 WBC (Bld) 7.2 % Normal 0-10 [facility] Comment on above: Performed By: #### L 501.5200, L501.9985, L500.4050, L501.9520, L100.0100 ####[facility] [address] [place], [address] Neutrophils/100 WBC (Bld) 71.8 % High 47-70 [facility] Comment on above: Performed By: #### L 501.5200, L501.9985, L500.4050, L501.9520, L100.0100 ####[facility] [address] [place], [address] Nucleated RBC (Bld) [#/Vol] 0 10*3/uL Normal 0-5 [facility] Comment on above: Performed By: #### L 501.5200, L501.9985, L500.4050, L501.9520, L100.0100 ####[facility] [address] [place], [address] Platelet mean volume (Bld) [Entitic vol] 10.5 fL Normal 6.2-12.0 [facility] Comment on above: Performed By: #### L 501.5200, L501.9985, L500.4050, L501.9520, L100.0100 ####[facility] [address] [place], [address] Platelets (Bld) [#/Vol] 180 10*3/uL Normal 150-450 [facility] Comment on above: Performed By: #### L 501.5200, L501.9985, L500.4050, L501.9520, L100.0100 ####[facility] [address] [place], [address] RBC (Bld) [#/Vol] 4.46 10*6/uL Normal 4.2-5.4 [facility] Comment on above: Performed By: #### L 501.5200, L501.9985, L500.4050, L501.9520, L100.0100 ####[facility] [address] [place], [address] RDW SD 49.7 fl High 35.1-43.9 [facility] Comment on above: Performed By: #### L 501.5200, L501.9985, L500.4050, L501.9520, L100.0100 ####[facility] [address] [place], [address] WBC (Bld) [#/Vol] 6.4 10*3/uL Normal 4.4-11.[address] [facility] Comment on above: Performed By: #### L 501.5200, L501.9985, L500.4050, L501.9520, L100.0100 ####[facility] [address] [place], [address] Comprehensive Metabolic [facility] 03-05-2024 Albumin [Mass/Vol] 2.7 g/dL Low 3.2-5.[address] [facility] Comment on above: Performed By: #### L 501.5200, L501.9985, L500.4050, L501.9520, L100.0100 ####[facility] [address] [place], [address] Albumin/Globulin [Mass ratio] 0.5 {ratio} Low 0.9-2.4 [facility] Comment on above: Performed By: #### L 501.5200, L501.9985, L500.4050, L501.9520, L100.0100 ####[facility] [address] [place], [address] ALK P 164 U/L High 45-117 [facility] Comment on above: Performed By: #### L 501.5200, L501.9985, L500.4050, L501.9520, L100.0100 ####[facility] [address] [place], [address] ALT [Catalytic activity/Vol] 50 U/L Normal 13-56 [facility] Comment on above: Performed By: #### L 501.5200, L501.9985, L500.4050, L501.9520, L100.0100 ####[facility] [address] [place], [address] AST [Catalytic activity/Vol] 75 U/L High 15-37 [facility] Comment on above: Performed By: #### L 501.5200, L501.9985, L500.4050, L501.9520, L100.0100 ####[facility] [address] [place], [address] Bilirubin [Mass/Vol] 0.40 mg/dL Normal 0.20-1.00 [facility] Comment on above: Result Comment: For patients on eltrombopag therapy, use of Dimension Fitzpatrick TBIL is not recommended. Performed By: #### L 501.5200, L501.9985, L500.4050, L501.9520, L100.0100 ####[facility] [address] [place], [address] BUN/CRE 18.7 RATIO Normal 10-20 [facility] Comment on above: Performed By: #### L 501.5200, L501.9985, L500.4050, L501.9520, L100.0100 ####[facility] [address] [place], [address] CA,Total 8.8 mg/dL Normal 8.5-10.1 [facility] Comment on above: Performed By: #### L 501.5200, L501.9985, L500.4050, L501.9520, L100.0100 ####[facility] [address] [place], [address] Chloride [Moles/Vol] 102 mmol/L Normal 98-107 [facility] Comment on above: Performed By: #### L 501.5200, L501.9985, L500.4050, L501.9520, L100.0100 ####[facility] [address] [place], [address] CO2 [Moles/Vol] 30.0 mmol/L Normal 21.0-32.0 [facility] Comment on above: Performed By: #### L 501.5200, L501.9985, L500.4050, L501.9520, L100.0100 ####[facility] [address] [place], [address] Creatinine [Mass/Vol] 0.70 mg/dL Normal 0.55-1.02 [facility] Comment on above: Result Comment: The validity of the calculated GFR GFRAA in patients over70 years has not been determined. Clinical correlation isessential. Performed By: #### L 501.5200, L501.9985, L500.4050, L501.9520, L100.0100 ####[facility] [address] [place], [address] ECRCL 101.68 ml/min Normal [facility] Comment on above: Performed By: #### L 501.5200, L501.9985, L500.4050, L501.9520, L100.0100 ####[facility] [address] [place], [address] EST GFR - AA 112 mL/min Normal >60 [facility] Comment on above: Result Comment: Afri can [place] GFR Calc Performed By: #### L 501.5200, L501.9985, L500.4050, L501.9520, L100.0100 ####[facility] [address] [place], [address] GAP 3 Low 5-15 [facility] Comment on above: Performed By: #### L 501.5200, L501.9985, L500.4050, L501.9520, L100.0100 ####[facility] [address] [place], [address] GFR/1.73 sq M.predicted among non-blacks MDRD (S/P/Bld) [Vol rate/Area] 92 mL/min/{1.73_m2} Normal >60 [facility] Comment on above: Result Comment: Non- GFR Calc Performed By: #### L 501.5200, L501.9985, L500.4050, L501.9520, L100.0100 ####[facility] [address] [place], [address] Globulin (S) [Mass/Vol] 5.6 g/dL High 2.2-4.2 [facility] Comment on above: Performed By: #### L 501.5200, L501.9985, L500.4050, L501.9520, L100.0100 ####[facility] [address] [place], [address] Glucose [Mass/Vol] 158 mg/dL High 74-[address] [facility] Comment on above: Result Comment: Fast ing Glucose result greater than or equal to 126 mg/dLsuggests DIABETES MELLITUS per A.D.A. criteria. Performed By: #### L 501.5200, L501.9985, L500.4050, L501.9520, L100.0100 ####[facility] [address] [place], [address] Potassium [Moles/Vol] 4.4 mmol/L Normal 3.5-5.1 [facility] Comment on above: Performed By: #### L 501.5200, L501.9985, L500.4050, L501.9520, L100.0100 ####[facility] [address] [place], [address] Sodium [Moles/Vol] 135 mmol/L Low 136-[address] [facility] Comment on above: Performed By: #### L 501.5200, L501.9985, L500.4050, L501.9520, L100.0100 ####[facility] [address] [place], [address] T PROT 8.3 g/dL High 6.4-8.2 [facility] Comment on above: Performed By: #### L 501.5200, L501.9985, L500.4050, L501.9520, L100.0100 ####[facility] [address] [place], [address] Urea nitrogen [Mass/Vol] 13 mg/dL Normal 7-18 [facility] Comment on above: Performed By: #### L 501.5200, L501.9985, L500.4050, L501.9520, L100.0100 ####[facility] [address] [place], [address] Hemoglobin A1con 03-05-2024 HbA1c (Bld) [Mass fraction] 12.8 % High 3.8-5.6 [facility] Comment on above: Result Comment: Norm al < 5.7 % Prediabetic 5.7 - 6.4 % Diabetic >or= 6.5 % Please note range changes. Performed By: #### L 501.5200, L501.9985, L500.4050, L501.9520, L100.0100 ####[facility] [address] [place], [address] Magnesiumon 03-05-2024 Magnesium [Mass/Vol] 1.8 mg/dL Normal 1.6-2.6 [facility] Comment on above: Performed By: #### L 501.5200, L501.9985, L500.4050, L501.9520, L100.0100 ####[facility] [address] [place], [address] Thyroid Stim Hormone (TSH)on 03-05-2024 TSH 5.970 uIU/mL High 0.358-3.740 [facility] Comment on above: Performed By: #### L 501.5200, L501.9985, L500.4050, L501.9520, L100.0100 ####[facility] [address] [place], [address] Urine Cultureon 03-05-2024 URC Culture exhibits no growth. Normal [facility] Comment on above: Performed By: #### M 100.2200 ####[facility] [address] [place], [address] Abdomen/Pelvis without Conto n 03-04-2024 Abdomen/Pelvis without Cont Normal [facility] BNP,B-Type NATRIURETIC PEPTI Lucila 03-04-2024 Natriuretic peptide B (Bld) [Mass/Vol] 24.0 pg/mL Normal 0-100 [facility] Comment on above: Performed By: #### L 300.4700, L503.6005, L509.7000, L300.3900, L501.3620, L300.8000, L504.2610, L503.6620, L501.6710 ####[facility] [address] [place], [address] Basic Metabolic Profile (BMP )on 03-04-2024 BUN/CRE 12.6 RATIO Normal 10-20 [facility] Comment on above: Performed By: #### L 503.6005, L501.3620, L500.3400, L500.2500, L100.0500, L501.2450 ####[facility] [address] [place], [address] CA,Total 9.4 mg/dL Normal 8.5-10.1 [facility] Comment on above: Performed By: #### L 503.6005, L501.3620, L500.3400, L500.2500, L100.0500, L501.2450 ####[facility] [address] [place], [address] Chloride [Moles/Vol] 95 mmol/L Low 98-107 [facility] Comment on above: Performed By: #### L 503.6005, L501.3620, L500.3400, L500.2500, L100.0500, L501.2450 ####[facility] [address] [place], [address] CO2 [Moles/Vol] 29.0 mmol/L Normal 21.0-32.0 [facility] Comment on above: Performed By: #### L 503.6005, L501.3620, L500.3400, L500.2500, L100.0500, L501.2450 ####[facility] [address] [place], [address] Creatinine [Mass/Vol] 0.95 mg/dL Normal 0.55-1.02 [facility] Comment on above: Result Comment: The validity of the calculated GFR GFRAA in patients over70 years has not been determined. Clinical correlation isessential. Performed By: #### L 503.6005, L501.3620, L500.3400, L500.2500, L100.0500, L501.2450 ####[facility] [address] [place], [address] ECRCL 74.68 ml/min Normal [facility] Comment on above: Performed By: #### L 503.6005, L501.3620, L500.3400, L500.2500, L100.0500, L501.2450 ####[facility] [address] [place], [address] EST GFR - AA 78 mL/min Normal >60 [facility] Comment on above: Result Comment: Afri can Tajik GFR Calc Performed By: #### L 503.6005, L501.3620, L500.3400, L500.2500, L100.0500, L501.2450 ####[facility] [address] [place], [address] GAP 6 Normal 5-15 [facility] Comment on above: Performed By: #### L 503.6005, L501.3620, L500.3400, L500.2500, L100.0500, L501.2450 ####[facility] [address] [place], [address] GFR/1.73 sq M.predicted among non-blacks MDRD (S/P/Bld) [Vol rate/Area] 65 mL/min/{1.73_m2} Normal >60 [facility] Comment on above: Result Comment: Non- GFR Calc Performed By: #### L 503.6005, L501.3620, L500.3400, L500.2500, L100.0500, L501.2450 ####[facility] [address] [place], [address] Glucose [Mass/Vol] 329 mg/dL High 74-[address] [facility] Comment on above: Result Comment: Gluc ose result greater than or equal to 200 mg/dLsuggests DIABETES MELLITUS per A.D.A. criteria. Performed By: #### L 503.6005, L501.3620, L500.3400, L500.2500, L100.0500, L501.2450 ####[facility] [address] [place], [address] Potassium [Moles/Vol] 4.1 mmol/L Normal 3.5-5.1 [facility] Comment on above: Performed By: #### L 503.6005, L501.3620, L500.3400, L500.2500, L100.0500, L501.2450 ####[facility] [address] [place], [address] Sodium [Moles/Vol] 130 mmol/L Low 136-[address] [facility] Comment on above: Performed By: #### L 503.6005, L501.3620, L500.3400, L500.2500, L100.0500, L501.2450 ####[facility] [address] [place], [address] Urea nitrogen [Mass/Vol] 12 mg/dL Normal 7-18 [facility] Comment on above: Performed By: #### L 503.6005, L501.3620, L500.3400, L500.2500, L100.0500, L501.2450 ####[facility] [address] [place], [address] Bedside Glucoseon 03-04-2024 FINGERSTICK GLU 333 mg/dL High 74-106 [facility] Comment on above: Result Comment: ESPERANZA VILLALTA OF PATIENT CARE PER NURSING PROTOCOL Performed By: #### L 501.080 ####[facility] [address] [place], [address] CBC-Complete Blood Cnt No Di ffon 03-04-2024 Erythrocyte distribution width (RBC) [Ratio] 16.1 % High 11.6-14.6 [facility] Comment on above: Performed By: #### L 503.6005, L501.3620, L500.3400, L500.2500, L100.0500, L501.2450 ####[facility] [address] [place], [address] Hematocrit (Bld) [Volume fraction] 42.7 % Normal 37-47 [facility] Comment on above: Performed By: #### L 503.6005, L501.3620, L500.3400, L500.2500, L100.0500, L501.2450 ####[facility] [address] [place], [address] Hemoglobin (Bld) [Mass/Vol] 13.5 g/dL Normal 12.0-15.0 [facility] Comment on above: Performed By: #### L 503.6005, L501.3620, L500.3400, L500.2500, L100.0500, L501.2450 ####[facility] [address] [place], [address] MCH (RBC) [Entitic mass] 26.8 pg Low 27.0-32.0 [facility] Comment on above: Performed By: #### L 503.6005, L501.3620, L500.3400, L500.2500, L100.0500, L501.2450 ####[facility] [address] [place], [address] MCHC (RBC) [Mass/Vol] 31.6 g/dL Low 32-36 [facility] Comment on above: Performed By: #### L 503.6005, L501.3620, L500.3400, L500.2500, L100.0500, L501.2450 ####[facility] [address] [place], [address] MCV (RBC) [Entitic vol] 84.7 fL Normal 81-99 [facility] Comment on above: Performed By: #### L 503.6005, L501.3620, L500.3400, L500.2500, L100.0500, L501.2450 ####[facility] [address] [place], [address] Platelet mean volume (Bld) [Entitic vol] 10.9 fL Normal 6.2-12.0 [facility] Comment on above: Performed By: #### L 503.6005, L501.3620, L500.3400, L500.2500, L100.0500, L501.2450 ####[facility] [address] [place], [address] Platelets (Bld) [#/Vol] 231 10*3/uL Normal 150-450 [facility] Comment on above: Performed By: #### L 503.6005, L501.3620, L500.3400, L500.2500, L100.0500, L501.2450 ####[facility] [address] [place], [address] RBC (Bld) [#/Vol] 5.04 10*6/uL Normal 4.2-5.4 [facility] Comment on above: Performed By: #### L 503.6005, L501.3620, L500.3400, L500.2500, L100.0500, L501.2450 ####[facility] [address] [place], [address] RDW SD 48.9 fl High 35.1-43.9 [facility] Comment on above: Performed By: #### L 503.6005, L501.3620, L500.3400, L500.2500, L100.0500, L501.2450 ####[facility] [address] [place], [address] WBC (Bld) [#/Vol] 7.4 10*3/uL Normal 4.4-11.[address] [facility] Comment on above: Performed By: #### L 503.6005, L501.3620, L500.3400, L500.2500, L100.0500, L501.2450 ####[facility] [address] [place], [address] CPK Total, Creatine Kinaseon 03-04-2024 CPK TOTAL 135 U/L Normal 26-192 [facility] Comment on above: Performed By: #### L 300.4700, L503.6005, L509.7000, L300.3900, L501.3620, L300.8000, L504.2610, L503.6620, L501.6710 ####[facility] [address] [place], [place], [id number] CPK TOTAL 148 U/L Normal 26-192 [facility] Comment on above: Performed By: #### L 503.6005, L501.3620, L500.3400, L500.2500, L100.0500, L501.2450 ####[facility] [address] [place], [place], [id number] CRPon 03-04-2024 C-REACTIVE PROT 28.80 mg/L High 0.0-3.0 [facility] Comment on above: Result Comment: C-Re active Protein (CRP) provides useful information for thediagnosis, therapy and monitoring of inflammatory processesand associated diseases. For the evaluation of Relative Riskfor Cardiovascular Disease, a High Sensitivity CRP (HSCRP)should be ordered. Performed By: #### L 300.4700, L503.6005, L509.7000, L300.3900, L501.3620, L300.8000, L504.2610, L503.6620, L501.6710 ####[facility] [address] [place], [place], [address] Chest 1 View (Portable)on Chest 1 View (Portable) Normal [facility] D-Dimer Quantitative (DVT/PE )on 03-04-2024 D-DIMER QUANT 0.39 FEU/ug/m Normal 0.27-0.49 [facility] Comment on above: Result Comment: NORM AL D-Dimer level (<0.50) indicates no DVT or PE. Performed By: #### L 300.4700, L503.6005, L509.7000, L300.3900, L501.3620, L300.8000, L504.2610, L503.6620, L501.6710 ####[facility] [address], [address] Emergency Department Summary on 03-04-2024 Emergency Department Summary Normal [facility] Fibrinogenon 03-04-2024 FIBRINOGEN 444 mg/dl Normal 203-444 [facility] Comment on above: Performed By: #### L 300.4700, L503.6005, L509.7000, L300.3900, L501.3620, L300.8000, L504.2610, L503.6620, L501.6710 ####[facility] [address], [address] H AND P Exam - Hospitaliston 03-04-2024 H&P Exam - Hospitalist Normal [facility] LDHon 03-04-2024 LDH 199 U/L Normal 84-246 [facility] Comment on above: Performed By: #### L 300.4700, L503.6005, L509.7000, L300.3900, L501.3620, L300.8000, L504.2610, L503.6620, L501.6710 ####[facility] [address], [address] Lactic Acidon 03-04-2024 Lactate [Moles/Vol] 1.6 mmol/L Normal 0.4-1.9 [facility] Comment on above: Order Comment: Y Performed By: #### L 300.4700, L503.6005, L509.7000, L300.3900, L501.3620, L300.8000, L504.2610, L503.6620, L501.6710 ####[facility] [address] [place], [address] Lactate [Moles/Vol] 1.5 mmol/L Normal 0.4-1.9 [facility] Comment on above: Order Comment: Y Performed By: #### L 503.6005, L501.3620, L500.3400, L500.2500, L100.0500, L501.2450 ####[facility] [address] [place], [address] Lipaseon 03-04-2024 Lipase [Catalytic activity/Vol] 59 U/L Normal 13-75 [facility] Comment on above: Result Comment: Ronnie mcleod note:LIPASE revised reference range effective 22.New Lipase methodology. Expected to produce lower valuesthan the previous assay method.NEW Reference Range: 13 - 75 U/L Performed By: #### L 503.6005, L501.3620, L500.3400, L500.2500, L100.0500, L501.2450 ####[facility] [address] [place], [address] Liver Profileon 03-04-2024 Albumin [Mass/Vol] 3.2 g/dL Normal 3.2-5.[address] [facility] Comment on above: Performed By: #### L 503.6005, L501.3620, L500.3400, L500.2500, L100.0500, L501.2450 ####[facility] [address] [place], [address] ALK P 237 U/L High 45-117 [facility] Comment on above: Performed By: #### L 503.6005, L501.3620, L500.3400, L500.2500, L100.0500, L501.2450 ####[facility] [address] [place], [address] ALT [Catalytic activity/Vol] 43 U/L Normal 13-56 [facility] Comment on above: Performed By: #### L 503.6005, L501.3620, L500.3400, L500.2500, L100.0500, L501.2450 ####[facility] [address] [place], [address] AST [Catalytic activity/Vol] 57 U/L High 15-37 [facility] Comment on above: Performed By: #### L 503.6005, L501.3620, L500.3400, L500.2500, L100.0500, L501.2450 ####[facility] [address] [place], [address] Bilirubin [Mass/Vol] 0.90 mg/dL Normal 0.20-1.00 [facility] Comment on above: Result Comment: For patients on eltrombopag therapy, use of Dimension Fitzpatrick TBIL is not recommended. Performed By: #### L 503.6005, L501.3620, L500.3400, L500.2500, L100.0500, L501.2450 ####[facility] [address] [place], [address] Bilirubin.direct [Mass/Vol] 0.25 mg/dL Normal 0.00-0.30 [facility] Comment on above: Performed By: #### L 503.6005, L501.3620, L500.3400, L500.2500, L100.0500, L501.2450 ####[facility] [address] [place], [address] Globulin (S) [Mass/Vol] 6.1 g/dL High 2.2-4.2 [facility] Comment on above: Performed By: #### L 503.6005, L501.3620, L500.3400, L500.2500, L100.0500, L501.2450 ####[facility] [address] [place], [address] T PROT 9.3 g/dL High 6.4-8.2 [facility] Comment on above: Performed By: #### L 503.6005, L501.3620, L500.3400, L500.2500, L100.0500, L501.2450 ####[facility] [address] [place], [address] M100.678on 03-04-2024 M100.678 Normal [facility] Comment on above: Performed By: #### M 100.678 ####[facility] [address] [place], [place], [id number] Procalcitoninon 03-04-2024 Procalcitonin 0.10 ng/mL High 0.00-0.09 [facility] Comment on above: Result Comment: A [...] L509.7000, L300.3900, L501.3620, L300.8000, L504.2610, L503.6620, L501.6710 ####[facility] [address] [place], [place], [address] Prothrombin Time w/INRon INR Coag (PPP) [Relative time] 1.2 {INR} Normal [facility] Comment on above: Performed By: #### L 300.4700, L503.6005, L509.7000, L300.3900, L501.3620, L300.8000, L504.2610, L503.6620, L501.6710 ####[facility] [address] [place], [address] PT Coag (PPP) [Time] 15.3 s High 11.7-14.9 [facility] Comment on above: Performed By: #### L 300.4700, L503.6005, L509.7000, L300.3900, L501.3620, L300.8000, L504.2610, L503.6620, L501.6710 ####[facility] [address] [place], [address] Urinalysis, Completeon 03-04 EPI,SQUAMOUS 5-10 SEEN Normal 5-10 [facility] Comment on above: Order Comment: TESSIE CTOR TO SPECIFY Performed By: #### L 400.0001 ####[facility] [address] [place], [address] BACTERIA 1+ /hpf Normal None Seen [facility] Comment on above: Order Comment: TESSIE CTOR TO SPECIFY Performed By: #### L 400.0001 ####[facility] [address] [place], [address] WBC >100 SEEN Normal 0-5 [facility] Comment on above: Order Comment: TESSIE CTOR TO SPECIFY Performed By: #### L 400.0001 ####[facility] [address] [place], [address] YEAST 3+ /hpf Normal None Seen [facility] Comment on above: Order Comment: TESSIE CTOR TO SPECIFY Performed By: #### L 400.0001 ####[facility] [address] [place], [address] Mucus Ql (Urine sed) 0 SEEN Normal [facility] Comment on above: Order Comment: TESSIE CTOR TO SPECIFY Performed By: #### L 400.0001 ####[facility] [address] [place], [address] RBC 0 SEEN Normal 0-5 [facility] Comment on above: Order Comment: COLLE CTOR TO SPECIFY Performed By: #### L 400.0001 ####[facility] [address] [place], [address] .GFRon 03-02-2024 GFR Non- 75 ml/min/1.73sqm Normal [facility] ([place] Comment on above: Result Comment: GFR Population [...] #### T GIOVANNA, CMP, GFR #### [address] [address] GFR 91 ml/min/1.73sqm Normal [facility] ([place] Comment on above: Result Comment: GFR Population [...] #### T SH, CMP, GFR #### [address] [address] CMPon 03-02-2024 Albumin Level 3.0 G/dL Low 3.5-5.0 [facility] ([place] Comment on above: Performed By: #### T SH, CMP, GFR #### [address] [address] Albumin/Globulin [Mass ratio] 0.6 {ratio} Low 1.1-2.5 [facility] ([place] Comment on above: Performed By: #### T SH, CMP, GFR #### [address] [address] ALP [Catalytic activity/Vol] 216 U/L High 40-135 [facility] ([place] Comment on above: Performed By: #### T SH, CMP, GFR #### [address] [address] ALT [Catalytic activity/Vol] 34 U/L Normal 14-59 [facility] ([place] Comment on above: Performed By: #### T SH, CMP, GFR #### [address] [address] AST [Catalytic activity/Vol] 27 U/L Normal 10-40 [facility] ([place] Comment on above: Performed By: #### T GIOVANNA, CMP, GFR #### [address] [address] Bili Total 0.7 mg/dL Normal 0.2-1.0 [facility] [place] Comment on above: Result Comment: Use of this assay is not recommended for patients undergoing treatment with eltrombopag due to the potential for falsely elevated results. Performed By: #### T SH, CMP, GFR #### [address] [address] BUN/Creatinine Ratio 13 ratio Normal 7-27 [facility] Comment on above: Performed By: #### T SH, CMP, GFR #### [address] [address] Calcium [Mass/Vol] 9.4 mg/dL Normal 8.4-10.2 [facility] Comment on above: Performed By: #### T SH, CMP, GFR #### [address] [address] Chloride [Moles/Vol] 93 mmol/L Low 98-107 [facility] Comment on above: Performed By: #### T GIOVANNA, CMP, GFR #### [address] [address] CO2 [Moles/Vol] 33 mmol/L High 22-29 [facility] ([place] Comment on above: Performed By: #### T GIOVANNA, CMP, GFR #### [address] [address] Creatinine [Mass/Vol] 0.79 mg/dL Normal 0.55-1.02 [facility] ([place] Comment on above: Performed By: #### T GIOVANNA CMP, GFR #### [address] [address] Electrolyte Balance 3.0 mEq/L Low 4.0-15.0 [facility] ([place] Comment on above: Performed By: #### T GIOVANNA, CMP, GFR #### [address] [address] Globulin 5.0 G/dL Normal [facility] ([place] Comment on above: Performed By: #### T GIOVANNA CMP, GFR #### [address] [address] Glucose [Mass/Vol] 484 mg/dL Critically abnormal 70-105 [facility] ([place] Comment on above: Performed By: #### T GIOVANNA, CMP, GFR #### [address] [address] Potassium [Moles/Vol] 4.8 mmol/L Normal 3.5-5.1 [facility] ([place] Comment on above: Performed By: #### T GIOVANNA, CMP, GFR #### [address] [address] Sodium [Moles/Vol] 129 mmol/L Low 136-145 [facility] [place] Comment on above: Performed By: #### T GIOVANNA, CMP, GFR #### [address] [address] Total Protein 8.0 G/dL Normal 6.4-8.2 [facility] ([place] Comment on above: Performed By: #### T SH, CMP, GFR #### [address] [place], [place] [address] Urea nitrogen [Mass/Vol] 10 mg/dL Normal 7-18 [facility] ([place] Comment on above: Performed By: #### T SH, CMP, GFR #### [address] [place], [place] [address] LABORATORYOrdered By: SYSTEM SYSTEM on 03-02-2024 Albumin [...] 03-02-2024 TSH Qn 37.38 m[IU]/L High 0.36-3.74 [facility] ([place] Comment on above: Performed By: #### T SH, CMP, GFR #### [address] [address] .Auto Diffon 02-25-2024 Basophil, Absolute 0.1 10 3/mcL Normal 0.0-0.2 [facility] Comment on above: Performed By: #### C MP, GFR, CBC, RAVEN LEDESMA MDW #### [address] [address] Basophils/100 WBC (Bld) 1.1 % Normal 0.0-2.5 [facility] ([place] Comment on above: Performed By: #### C MP, GFR, CBC, ADRAVEN HUFF MDW #### [address] [address] Eosinophil, Absolute 0.2 10 3/mcL Normal 0.0-0.4 [facility] ([place] Comment on above: Performed By: #### C MP, GFR, CBC, RAVEN LEDESMA MDW #### [address] [address] Eosinophils/100 WBC (Bld) 2.0 % Normal 0.0-7.0 [facility] ([place] Comment on above: Performed By: #### C MP, GFR, CBC, ADRAVEN HUFF MDW #### [address] [address] Lymphocyte, Absolute 2.1 10 3/mcL Normal 0.8-3.9 [facility] ([place] Comment on above: Performed By: #### C MP, GFR, CBC, ADRAVEN HUFF MDW #### [address] [address] Lymphocytes/100 WBC (Bld) 18.0 % Normal 10.0-50.0 [facility] ([place] Comment on above: Performed By: #### C MP, GFR, CBC, ADRAVEN HUFF MDW #### [address] [address] Monocyte, Absolute 0.5 10 3/mcL Normal 0.2-1.0 [facility] Comment on above: Performed By: #### C MP, GFR, CBC, ADRAVEN HUFF MDW #### [address] [address] Monocytes/100 WBC (Bld) 4.6 % Normal 1.7-13.0 [facility] ([place] Comment on above: Performed By: #### C MP, GFR, CBC, ADRAVEN HUFF MDW #### [address] [address] Neutrophils/100 WBC (Bld) 74.3 % Normal 37.0-80.0 [facility] ([place] Comment on above: Performed By: #### C MP, GFR, CBC, ADIFFRAVEN MDW #### [address] [address] .GFRon 02-25-2024 GFR 79 ml/min/1.73sqm Normal [facility] ([place] Comment on above: Result Comment: GFR Population [...] MP, GFR, CBC, ADIFF, SATURNINO CARBAJAL #### [address] [address] GFR Non- 65 ml/min/1.73sqm Normal [facility] [place] Comment on above: Result Comment: GFR Population [...] MP, GFR, CBC, RAVEN LEDESMA MDW #### [place] [address] .MDWon 02-25-2024 Monocyte Distribution Width 20.84 High 0.00-20.00 [facility] ([place] Comment on above: Result Comment: For adults in ED, MDW>20.0 may be associated with a higher risk of sepsis during the first 12hrs of hospital admission Performed By: #### C MP, GFR, CBC, RAVEN LEDESMA MDW #### [place] [id number] .NEUABSon 02-25-2024 Neutrophil, Absolute 8.7 10 3/mcL High 2.9-6.2 [facility] ([place] Comment on above: Performed By: #### C MP, GFR, CBC, RAVEN LEDESMA MDW #### [place] [address] .Urinalysis Microscopic (AO) on 02-25-2024 UA Bacteria 3+ /hpf Abnormal [facility] ([place] Comment on above: Performed By: #### T SH, CMP, GFR #### [place] [address] UA RBC LOADED Abnormal None Seen [facility] ([place] Comment on above: Performed By: #### T SH, CMP, GFR #### [address] [address] UA Squam Epithelial 5-10 Abnormal None Seen [facility] ([place] Comment on above: Performed By: #### T SH, CMP, GFR #### [address] [address] UA WBC LOADED Abnormal None Seen [facility] ([place] Comment on above: Performed By: #### T SH, CMP, GFR #### [place] [phone] ACTONon 02-25-2024 Acetone (s) Negative Normal Negative [facility] ([place] Comment on above: Performed By: #### C MP, GFR, CBC, RAVEN LEDESMA MDW #### [place] [address] CBCon 02-25-2024 Erythrocyte distribution width (RBC) [Ratio] 16.8 % High 11.5-14.5 [facility] ([place] Comment on above: Performed By: #### C MP, GFR, CBC, RAVEN LEDESMA MDW #### [place] [address] Hematocrit (Bld) [Volume fraction] 41.7 % Normal 37.0-47.0 [facility] ([place] Comment on above: Performed By: #### C MP, GFR, CBC, RAVEN LEDESMA MDW #### [place] [id number] Hgb 13.3 G/dL Normal 12.0-16.0 [facility] ([place] Comment on above: Performed By: #### C MP, GFR, CBC, RAVEN LEDESMA MDW #### [place] [phone] MCH (RBC) [Entitic mass] 27.3 pg Normal 27.0-31.2 [facility] ([place] Comment on above: Performed By: #### C MP, GFR, CBC, RAVEN LEDESMA MDW #### [place] [id number] MCHC 31.9 G/dL Low 33.0-37.0 [facility] ([place] Comment on above: Performed By: #### C MP, GFR, CBC, RAVEN LEDESMA MDW #### [address] [address] MCV (RBC) [Entitic vol] 85.8 fL Normal 80.0-94.0 [facility] ([place] Comment on above: Performed By: #### C MP, GFR, CBC, RAVEN LEDESMA MDW #### [address] [address] Platelet 210 10 3/mcL Normal 130-400 [facility] ([place] Comment on above: Performed By: #### C MP, GFR, CBC, RAVEN LEDESMA MDW #### [address] [address] Platelet mean volume (Bld) [Entitic vol] 8.5 fL Normal 7.4-10.4 [facility] ([place] Comment on above: Performed By: #### C MP, GFR, CBC, RAVEN LEDESMA MDW #### [address] [address] RBC 4.86 10 6/mcL Normal 4.20-5.40 [facility] ([place] Comment on above: Performed By: #### C MP, GFR, CBC, RAVEN LEDESMA MDW #### [address] [address] WBC 11.7 10 3/mcL High 4.6-10.8 [facility] ([place] Comment on above: Performed By: #### C MP, GFR, CBC, RAVEN LEDESMA MDW #### [address] [address] CMPon 02-25-2024 Albumin Level 3.2 G/dL Low 3.5-5.0 [facility] [place] Comment on above: Performed By: #### C MP, GFR, CBC, RAVEN LEDESMA MDW #### [address] [address] Albumin/Globulin [Mass ratio] 0.6 {ratio} Low 1.1-2.5 [facility] ([place] Comment on above: Performed By: #### C MP, GFR, CBC, RAVEN LEDESMA MDW #### [address] [address] ALP [Catalytic activity/Vol] 240 U/L High 40-135 [facility] [place] Comment on above: Performed By: #### C MP, GFR, CBC, RAVEN LEDESMA MDW #### [address] [address] ALT [Catalytic activity/Vol] 41 U/L Normal 14-59 [facility] ([place] Comment on above: Performed By: #### C MP, GFR, CBC, RAVEN LEDESMA MDW #### [address] [id number] AST [Catalytic activity/Vol] 45 U/L High 10-40 [facility] ([place]) Comment on above: Performed By: #### C MP, GFR, CBC, RAVEN LEDESMA MDW #### [address] [address] Bili Total 0.8 mg/dL Normal 0.2-1.0 [facility] ([place]) Comment on above: Result Comment: Use of this assay is not recommended for patients undergoing treatment with eltrombopag due to the potential for falsely elevated results. Performed By: #### C MP, GFR, CBC, RAVEN LEDESMA MDW #### [address] [address] BUN/Creatinine Ratio 10 ratio Normal 7-27 [facility] Comment on above: Performed By: #### C MP, GFR, CBC, RAVEN LEDESMA MDW #### [address] [id number] Calcium [Mass/Vol] 8.9 mg/dL Normal 8.4-10.2 [facility]ly [facility] ([place]) Comment on above: Performed By: #### C MP, GFR, CBC, RAVEN LEDESMA MDW #### [address] [address] Chloride [Moles/Vol] 90 mmol/L Low 98-107 [facility] [place] Comment on above: Performed By: #### C MP, GFR, CBC, RAVEN LEDESMA MDW #### [address] [address] CO2 [Moles/Vol] 31 mmol/L High 22-29 [facility] ([place]) Comment on above: Performed By: #### C MP, GFR, CBC, RAVEN LEDESMA MDW #### [address] [address] Creatinine [Mass/Vol] 0.89 mg/dL Normal 0.55-1.02 [facility] ([place]) Comment on above: Performed By: #### C MP, GFR, CBC, RAVEN LEDESMA MDW #### [address] [address] Electrolyte Balance 7.0 mEq/L Normal 4.0-15.0 [facility] ([place]) Comment on above: Performed By: #### C MP, GFR, CBCBALTAZAR ANEU, MDW #### [address] [address] Globulin 5.5 G/dL Normal [facility] ([place]) Comment on above: Performed By: #### C MP, GFR, CBC, RAVEN LEDESMA MDW #### [address] [address] Glucose [Mass/Vol] 654 mg/dL Critically abnormal 70-105 [facility] ([place]) Comment on above: Performed By: #### C MP, GFR, CBCBALTAZAR ANEU, MDW #### [address] [address] Potassium [Moles/Vol] 4.8 mmol/L Normal 3.5-5.1 [facility] ([place]) Comment on above: Performed By: #### C MP, GFR, CBCBALTAZAR ANEU, MDW #### [facility] [address] [place], [place] [address] Sodium [Moles/Vol] 128 mmol/L Low 136-145 [facility] ([place]) Comment on above: Performed By: #### C MP, GFR, CBC, RAVEN LEDESMA MDW #### [address] [place], [place] [address] Total Protein 8.7 G/dL High 6.4-8.2 [facility] ([place]) Comment on above: Performed By: #### C MP, GFR, CBC, RAVEN LEDESMA MDW #### [address] [place], [place] [address] Urea nitrogen [Mass/Vol] 9 mg/dL Normal 7-18 [facility] ([place]) Comment on above: Performed By: #### C MP, GFR, CBC, RAVEN LEDESMA MDW #### [address] [place], [place] [address] CT ABD/PELVIS W/ IV CONTRAST ONLYon 02-25-2024 [...] 02/25/2024 12:00:15 PM Ordering Provider: URSULA Epstein [facility] ([place]) LABORATORYOrdered By: Nazanin Recio on 02-25-2024 Glucose [Mass/Vol] 334 mg/dL High 70 - 110 mg/dL [facility] Work Phone: Glucose [Mass/Vol] 432 mg/dL Invalid Interpretation Code 70 - 110 mg/dL [facility] Work Phone: Glucose [Mass/Vol] 532 mg/dL Invalid Interpretation Code 70 - 110 mg/dL [facility] Work Phone: LABORATORYOrdered By: Arden Patel [...] SS UAon 02-25-2024 Color (U) Yellow Normal [facility] ([place]) Comment on above: Performed By: #### T SH, CMP, GFR #### [place] [address] [address] Glucose (U) [Mass/Vol] mg/dL Abnormal Negative [facility] ([place]) Comment on above: Performed By: #### T SH, CMP, GFR #### [address] [address] Ketones Ql (U) Negative Normal Negative [facility] ([place]) Comment on above: Performed By: #### T SH, CMP, GFR #### [address] [address] UA Appear Slightly Cloudy Abnormal Clear [facility] ([place] Comment on above: Performed By: #### T SH, CMP, GFR #### [address] [address] UA Blood Moderate Abnormal Negative [facility] ([place]) Comment on above: Performed By: #### T SH, CMP, GFR #### [address] [address] UA Leuk Est Trace Abnormal Negative [facility] ([place]) Comment on above: Performed By: #### T SH, CMP, GFR #### [address] [address] UA Nitrite Negative Normal Negative [facility] ([place]) Comment on above: Performed By: #### T SH, CMP, GFR #### [place] [address] [address] UA pH 6.0 Normal 5.0 - 8.0 [facility] ([place]) Comment on above: Performed By: #### T SH, CMP, GFR #### [address] [address] UA Protein Negative Normal Negative [facility] ([place]) Comment on above: Performed By: #### T SH, CMP, GFR #### [place] [id number] UA Spec Grav 1.010 Abnormal 1.015-1.025 [facility] ([place]) Comment on above: Performed By: #### T SH, CMP, GFR #### [place] [address] UA Specimen Type Clean Catch Normal [facility] ([place]) Comment on above: Performed By: #### T SH, CMP, GFR #### [place] [id number] UA Urobilinogen 0.2 E.U./dL Normal 0.2-1.0 [facility] ([place]) Comment on above: Performed By: #### T SH, CMP, GFR #### [place] [address] Urobilinogen (U) [Mass/Vol] Negative Normal Negative [facility] ([place]) Comment on above: Performed By: #### T SH, CMP, GFR #### [address] [address] .Auto Diffon 02-24-2024 Basophil, Absolute 0.0 10 3/mcL Normal 0.0-0.2 [facility] [place] Comment on above: Performed By: #### C MP, GFR, CBC, RAVEN LEDESMA MDW #### [address] [address] Basophils/100 WBC (Bld) 0.8 % Normal 0.0-2.5 [facility] ([place]) Comment on above: Performed By: #### C MP, GFR, CBC, RAVEN LEDESMA MDW #### [address] [address] Eosinophil, Absolute 0.2 10 3/mcL Normal 0.0-0.4 [facility] ([place]) Comment on above: Performed By: #### C MP, GFR, CBC, ADIFFRAVEN MDW #### [address] [address] Eosinophils/100 WBC (Bld) 3.4 % Normal 0.0-7.0 [facility] ([place]) Comment on above: Performed By: #### C MP, GFR, CBC, ADIFFRAVEN MDW #### [address] [address] Lymphocyte, Absolute 2.0 10 3/mcL Normal 0.8-3.9 [facility] ([place]) Comment on above: Performed By: #### C MP, GFR, CBC, ADARVEN HUFF MDW #### [address] [address] Lymphocytes/100 WBC (Bld) 32.2 % Normal 10.0-50.0 [facility] ([place]) Comment on above: Performed By: #### C MP, GFR, CBC, ADRAVEN HUFF MDW #### [address] [address] Monocyte, Absolute 0.4 10 3/mcL Normal 0.2-1.0 [facility] [place] Comment on above: Performed By: #### C MP, GFR, CBC, ADRAVEN HUFF MDW #### [address] [address] Monocytes/100 WBC (Bld) 6.0 % Normal 1.7-13.0 [facility] ([place]) Comment on above: Performed By: #### C MP, GFR, CBC, ADIFFRAVEN MDW #### [address] [address] Neutrophils/100 WBC (Bld) 57.6 % Normal 37.0-80.0 [facility] ([place]) Comment on above: Performed By: #### C MP, GFR, CBC, ADIFFRAVEN MDW #### [address] [address] .GFRon 02-24-2024 GFR 73 ml/min/1.73sqm Normal [facility] ([place]) Comment on above: Result Comment: GFR Population [...] C MP, GFR, CBCBALTAZAR ANEU, MDW #### [address] [address] GFR Non- 60 ml/min/1.73sqm Normal [facility] ([place]) Comment on above: Result Comment: GFR Population [...] C MP, GFR, CBCBALTAZAR ANEU, MDW #### [address] [place], [place] [address] .NEUABSon 02-24-2024 Neutrophil, Absolute 3.7 10 3/mcL Normal 2.9-6.2 [facility] ([place]) Comment on above: Performed By: #### C MP, GFR, CBC, RAVEN LEDESMA MDW #### [address] [address] CBCon 02-24-2024 Erythrocyte distribution width (RBC) [Ratio] 16.6 % High 11.5-14.5 [facility] ([place]) Comment on above: Performed By: #### C MP, GFR, CBC, RAVEN LEDESMA MDW #### [address] [address] Hematocrit (Bld) [Volume fraction] 38.2 % Normal 37.0-47.0 [facility] ([place]) Comment on above: Performed By: #### C MP, GFR, CBC, RAVEN LEDESMA MDW #### [address] [address] Hgb 12.3 G/dL Normal 12.0-16.0 [facility] ([place]) Comment on above: Performed By: #### C MP, GFR, CBC, RAVEN LEDESMA MDW #### [address] [address] MCH (RBC) [Entitic mass] 27.3 pg Normal 27.0-31.2 [facility] ([place]) Comment on above: Performed By: #### C MP, GFR, CBC, RAVEN LEDESMA MDW #### [address] [address] MCHC 32.2 G/dL Low 33.0-37.0 [facility] ([place]) Comment on above: Performed By: #### C MP, GFR, CBC, RAVEN LEDESMA MDW #### [address] [address] MCV (RBC) [Entitic vol] 84.6 fL Normal 80.0-94.0 [facility] ([place]) Comment on above: Performed By: #### C MP, GFR, CBC, RAVEN LEDESMA MDW #### [address] [address] Platelet 187 10 3/mcL Normal 130-400 [facility] ([place]) Comment on above: Performed By: #### C MP, GFR, CBC, RAVEN LEDESMA MDW #### [address] [address] Platelet mean volume (Bld) [Entitic vol] 8.6 fL Normal 7.4-10.4 [facility] ([place]) Comment on above: Performed By: #### C MP, GFR, CBC, RAVEN LEDESMA MDW #### [address] [address] RBC 4.52 10 6/mcL Normal 4.20-5.40 [facility] ([place]) Comment on above: Performed By: #### C MP, GFR, CBC, RAVEN LEDESMA MDW #### [address] [address] WBC 6.4 10 3/mcL Normal 4.6-10.8 [facility] ([place]) Comment on above: Performed By: #### C MP, GFR, CBC, RAVEN LEDESMA MDW #### [address] [address] CEFUROXIME:SUSC:PT:ISOLATE:O RDQN:MICon 02-24-2024 Cefuroxime SHAHEEN [Susc] >100,000 cfu/ml Escherichia coli >100,000 cfu/ml Escherichia coli #2 [facility] Work Phone: [facility] 02-24-2024 Albumin Level 3.1 G/dL Low 3.5-5.0 [facility] ([place]) Comment on above: Performed By: #### C MP, GFR, CBC, RAVEN LEDESMA MDW #### [place] [address] Albumin/Globulin [Mass ratio] 0.6 {ratio} Low 1.1-2.5 [facility] ([place]) Comment on above: Performed By: #### C MP, GFR, CBC, RAVEN LEDESMA MDW #### [place] [id number] ALP [Catalytic activity/Vol] 223 U/L High 40-135 [facility] ([place]) Comment on above: Performed By: #### C MP, GFR, CBCBALTAZAR ANEU, MDW #### [address] [address] ALT [Catalytic activity/Vol] 44 U/L Normal 14-59 [facility] ([place]) Comment on above: Performed By: #### C MP, GFR, CBCBALTAZAR ANEU, MDW #### [address] [address] AST [Catalytic activity/Vol] 36 U/L Normal 10-40 [facility] ([place]) Comment on above: Performed By: #### C MP, GFR, CBCBALTAZAR ANEU, MDW #### [address] [address] Bili Total 0.7 mg/dL Normal 0.2-1.0 [facility] ([place]) Comment on above: Result Comment: Use of this assay is not recommended for patients undergoing treatment with eltrombopag due to the potential for falsely elevated results. Performed By: #### C MP, GFR, CBCBALTAZAR ANEU, MDW #### [address] [address] BUN/Creatinine Ratio 14 ratio Normal 7-27 [facility] [place] Comment on above: Performed By: #### C MP, GFR, CBCBALTAZAR ANEU, MDW #### [address] [address] Calcium [Mass/Vol] 9.0 mg/dL Normal 8.4-10.2 [facility] ([place] Comment on above: Performed By: #### C MP, GFR, CBCBALTAZAR ANEU, MDW #### [address] [address] Chloride [Moles/Vol] 96 mmol/L Low 98-107 [facility] [place] Comment on above: Performed By: #### C MP, GFR, CBCBALTAZAR ANEU, MDW #### [address] [address] CO2 [Moles/Vol] 32 mmol/L High 22-29 [facility] ([place]) Comment on above: Performed By: #### C MP, GFR, CBC, RAVEN LEDESMA MDW #### [address] [address] Creatinine [Mass/Vol] 0.96 mg/dL Normal 0.55-1.02 [facility] ([place]) Comment on above: Performed By: #### C MP, GFR, CBC, RAVEN LEDESMA MDW #### [address] [address] Electrolyte Balance 3.0 mEq/L Low 4.0-15.0 [facility] ([place]) Comment on above: Performed By: #### C MP, GFR, CBC, RAVEN LEDESMA MDW #### [address] [address] Globulin 5.0 G/dL Normal [facility] ([place]) Comment on above: Performed By: #### C MP, GFR, CBC, RAVEN LEDESMA MDW #### [address] [address] Glucose [Mass/Vol] 567 mg/dL Critically abnormal 70-105 [facility] ([place]) Comment on above: Performed By: #### C MP, GFR, CBC, RAVEN LEDESMA MDW #### [address] [address] Potassium [Moles/Vol] 5.3 mmol/L High 3.5-5.1 [facility] ([place]) Comment on above: Performed By: #### C MP, GFR, CBCBALTAZAR ANEU, MDW #### [address] [address] Sodium [Moles/Vol] 131 mmol/L Low 136-145 [facility] ([place] Comment on above: Performed By: #### C MP, GFR, CBC, RAVEN LEEDSMA MDW #### [address] [place], [place] [address] Total Protein 8.1 G/dL Normal 6.4-8.2 [facility] ([place]) Comment on above: Performed By: #### C MP, GFR, CBC, RAVEN LEDESMA MDW #### [facility] [address] [place], [place] [address] Urea nitrogen [Mass/Vol] 13 mg/dL Normal 7-18 [facility] ([place]) Comment on above: Performed By: #### C MP, GFR, CBC, RAVEN LEDESMA MDW #### [address] [place], [place] [address] Cefuroxime SHAHEEN [Susc]on Escherichia coli Escherichia coli [facility] Work Phone: LABORATORYOrdered By: SYSTEM SYSTEM on [...] above: Result Comment: CVRB D Ondash 1335 qtz=502. ja Hematocrit (Bld) [Volume fraction] 38.2 % [...] 0 01-27-2024 Urgent Care Visit Report Normal [facility] Visit Reporton 2023 [facility] Informationon 01-13 Culture Urine >100,000 cfu/ml Mult iple bacterial morphotypes present. Probable Contamination. Suggest recollection if clinically indicated. [facility] Work Phone: US ABDOMEN COMPLETEon 2023 [...] 09/17/2023 1:13:39 PM Ordering Provider: VERO Epstein [facility] ([place]) CT THORAX W/O CONTRASTon CT THORAX W/O [...] 09/04/2023 12:40:25 PM Ordering Provider: VERO ORTEZ [facility] ([place]) GGTon 08-19-2023 Gamma GT 202 U/L High 5-55 [facility] ([place]) Comment on above: Performed By: #### T ZAYNAB HEREDIA, GFR #### [place] [address] HEPACon 08-19-2023 Hep A IgM Ab Int [facility] ([place]) Comment on above: Result Comment: No s erological evidence of a current Hepatitis A infection. See Interp Performed By: #### T ZAYNAB HEREDIA, GFR #### [place] [address] Hep B Core IgM Ab Non-Reactive Normal Non-Reactive [facility] ([place]) Comment on above: Performed By: #### T ZAYNAB HEREDIA, GFR #### [place] [address] Hep B Core IgM Ab Int [facility] ([place]) Comment on above: Result Comment: Samp les with a value < 0.80 Index are considered nonreactive (negative) for IgM antibodies to hepatitis B core antigen. See Interp Performed By: #### T ZAYNAB HEREDIA, GFR #### [place] [address] Hep C Ab Int [facility] ([place]) Comment on above: Result Comment: Nonr eactive: Samples with a value < 0.80 are considered nonreactive (negative) for antibodies to HCV. A negative test result does not exclude the possibility of exposure to or infection with HCV. HCV antibodies may be undetectable in some stages of the infection and in some clinical conditions. See Interp Performed By: #### T GIOVANNA CMP, GFR #### [place] [address] Hep A IgM Ab Non-Reactive Normal Non-Reactive [facility] ([place]) Comment on above: Performed By: #### T SH, CMP, GFR #### [address] [address] Hep B Surf Ag Non-Reactive Normal Non-Reactive [facility] ([place]) Comment on above: Performed By: #### T SH, CMP, GFR #### [address] [address] Hep C Ab Non-Reactive Normal Non-Reactive [facility] ([place]) Comment on above: Performed By: #### T SH, CMP, GFR #### [address] [address] .GFRon 07-30-2023 GFR 78 ml/min/1.73sqm Normal [facility] ([place]) Comment on above: Result Comment: GFR Population [...] MP, GFR, CBC, ADIFF, SATURNINO CARBAJAL #### [address] [address] GFR Non- 64 ml/min/1.73sqm Normal [facility] ([place]) Comment on above: Result Comment: GFR Population [...] C MP, GFR, CBCBALTAZAR ANEU, MDW #### [address] [address] CMPon 07-30-2023 Albumin Level 3.1 G/dL Low 3.5-5.0 [facility] ([place]) Comment on above: Performed By: #### C MP, GFR, CBCBALTAZAR ANEU, MDW #### [address] [address] Albumin/Globulin [Mass ratio] 0.6 {ratio} Low 1.1-2.5 [facility] ([place] Comment on above: Performed By: #### C MP, GFR, CBCBALTAZAR ANEU, MDW #### [address] [address] ALP [Catalytic activity/Vol] 255 U/L High 40-135 [facility] ([place]) Comment on above: Performed By: #### C MP, GFR, CBCBALTAZAR ANEU, MDW #### [address] [address] ALT [Catalytic activity/Vol] 70 U/L High 14-59 [facility] ([place] Comment on above: Performed By: #### C MP, GFR, CBCBALTAZAR ANEU, MDW #### [address] [address] AST [Catalytic activity/Vol] 64 U/L High 10-40 [facility] ([place]) Comment on above: Performed By: #### C MP, GFR, CBCBALTAZAR ANEU, MDW #### [address] [address] Bili Total 0.6 mg/dL Normal 0.2-1.0 [facility] ([place]) Comment on above: Result Comment: Use of this assay is not recommended for patients undergoing treatment with eltrombopag due to the potential for falsely elevated results. Performed By: #### C MP, GFR, CBC, RAVEN LEDESMA MDW #### [address] [address] BUN/Creatinine Ratio 13 ratio Normal 7-27 [facility] Comment on above: Performed By: #### C MP, GFR, CBC, RAVEN LEDESMA MDW #### [address] [address] Calcium [Mass/Vol] 9.7 mg/dL Normal 8.4-10.2 [facility] ([place] Comment on above: Performed By: #### C MP, GFR, CBC, RAVEN LEDESMA MDW #### [address] [address] Chloride [Moles/Vol] 98 mmol/L Normal 98-107 [facility] [place] Comment on above: Performed By: #### C MP, GFR, CBC, RAVEN LEDESMA MDW #### [address] [address] CO2 [Moles/Vol] 33 mmol/L High 22-29 [facility] ([place] Comment on above: Performed By: #### C MP, GFR, CBC, RAVEN LEDESMA MDW #### [address] [address] Creatinine [Mass/Vol] 0.91 mg/dL Normal 0.55-1.02 [facility] ([place]) Comment on above: Performed By: #### C MP, GFR, CBC, RAVEN LEDESMA MDW #### [address] [address] Electrolyte Balance 6.0 mEq/L Normal 4.0-15.0 [facility] ([place]) Comment on above: Performed By: #### C MP, GFR, CBC, RAVEN LEDESMA MDW #### [address] [address] Globulin 5.1 G/dL Normal [facility] ([place]) Comment on above: Performed By: #### C MP, GFR, CBC, RAVEN LEDESMA MDW #### [address] [address] Glucose [Mass/Vol] 361 mg/dL High 70-105 [facility] ([place] Comment on above: Performed By: #### C MP, GFR, CBC, RAVEN LEDESMA MDW #### [address] [address] Potassium [Moles/Vol] 4.7 mmol/L Normal 3.5-5.1 [facility] ([place]) Comment on above: Performed By: #### C MP, GFR, CBC, RAVEN LEDESMA MDW #### [address] [address] Sodium [Moles/Vol] 137 mmol/L Normal 136-145 [facility] ([place] Comment on above: Performed By: #### C MP, GFR, CBC, RAVEN LEDESMA MDW #### [address] [address] Total Protein 8.2 G/dL Normal 6.4-8.2 Replaced by [facility]) Comment on above: Performed By: #### C MP, GFR, CBC, RAVEN LEDESMA MDW #### [address] [address] Urea nitrogen [Mass/Vol] 12 mg/dL Normal 7-18 Replaced by [facility]) Comment on above: Performed By: #### C MP, GFR, CBC, RAVEN LEDESMA MDW #### [address] [address] FT4on 07-30-2023 Free T4 [Mass/Vol] 0.76 ng/dL Normal 0.76-1.46 [facility] ([place] Comment on above: Performed By: #### C MP, GFR, CBC, RAVEN LEDESMA MDW #### [address] [address] LABORATORYOrdered By: SYSTEM SYSTEM on 07-30-2023 Albumin [...] 07-30-2023 TSH Qn 11.80 m[IU]/L High 0.36-3.74 [facility] ([place]) Comment on above: Performed By: #### C MP, GFR, CBC, ADIFF, ANEU, W #### [place] [address] .Auto Diffon 07-26-2023 Basophil, Absolute 0.1 10 3/mcL Normal 0.0-0.2 [facility] Comment on above: Performed By: #### T SH, CMP, GFR #### [address] [address] Basophils/100 WBC (Bld) 0.8 % Normal 0.0-2.5 [facility] ([place]) Comment on above: Performed By: #### T SH, CMP, GFR #### [address] [address] Eosinophil, Absolute 0.4 10 3/mcL Normal 0.0-0.4 [facility] ([place]) Comment on above: Performed By: #### T SH, CMP, GFR #### [address] [address] Eosinophils/100 WBC (Bld) 3.5 % Normal 0.0-7.0 [facility] ([place]) Comment on above: Performed By: #### T SH, CMP, GFR #### [address] [address] Lymphocyte, Absolute 2.9 10 3/mcL Normal 0.8-3.9 [facility] ([place]) Comment on above: Performed By: #### T SH, CMP, GFR #### [address] [address] Lymphocytes/100 WBC (Bld) 28.1 % Normal 10.0-50.0 [facility] ([place] Comment on above: Performed By: #### T SH, CMP, GFR #### [address] [address] Monocyte, Absolute 0.7 10 3/mcL Normal 0.2-1.0 [facility] Comment on above: Performed By: #### T SH, CMP, GFR #### [address] [address] Monocytes/100 WBC (Bld) 6.5 % Normal 1.7-13.0 [facility] ([place]) Comment on above: Performed By: #### T SH, CMP, GFR #### [place] [address] Neutrophils/100 WBC (Bld) 61.1 % Normal 37.0-80.0 [facility] ([place] Comment on above: Performed By: #### T SH, CMP, GFR #### [place] [address] .GFRon 07-26-2023 GFR 80 ml/min/1.73sqm Normal [facility] ([place] Comment on above: Result Comment: GFR Population [...] #### T SH, CMP, GFR #### [place] [address] GFR Non- 66 ml/min/1.73sqm Normal [facility] ([place] Comment on above: Result Comment: GFR Population [...] By: #### T SH, CMP, GFR #### [place] [id number] .NEUABSon 07-26-2023 Neutrophil, Absolute 6.2 10 3/mcL Normal 2.9-6.2 [facility] ([place]) Comment on above: Performed By: #### T SH, CMP, GFR #### [place] [id number] CBCon 07-26-2023 Erythrocyte distribution width (RBC) [Ratio] 15.8 % High 11.5-14.5 [facility] ([place] Comment on above: Performed By: #### T SH, CMP, GFR #### [place] [address] Hematocrit (Bld) [Volume fraction] 40.5 % Normal 37.0-47.0 [facility] ([place] Comment on above: Performed By: #### T SH, CMP, GFR #### [place] [address] Hgb 13.6 G/dL Normal 12.0-16.0 [facility] [place] Comment on above: Performed By: #### T SH, CMP, GFR #### [place] [address] MCH (RBC) [Entitic mass] 28.8 pg Normal 27.0-31.2 [facility] ([place] Comment on above: Performed By: #### T SH, CMP, GFR #### [place] [address] MCHC 33.7 G/dL Normal 33.0-37.0 [facility] [place] Comment on above: Performed By: #### T SH, CMP, GFR #### [place] [address] MCV (RBC) [Entitic vol] 85.6 fL Normal 80.0-94.0 [facility] ([place] Comment on above: Performed By: #### T SH, CMP, GFR #### [place] [id number] Platelet 232 10 3/mcL Normal 130-400 [facility] ([place] Comment on above: Performed By: #### T SH, CMP, GFR #### [address] [address] Platelet mean volume (Bld) [Entitic vol] 7.9 fL Normal 7.4-10.4 [facility] ([place] Comment on above: Performed By: #### T SH, CMP, GFR #### [address] [address] RBC 4.73 10 6/mcL Normal 4.20-5.40 [facility] ([place] Comment on above: Performed By: #### T SH, CMP, GFR #### [address] [address] WBC 10.2 10 3/mcL Normal 4.6-10.8 [facility] ([place] Comment on above: Performed By: #### T SH, CMP, GFR #### [address] [address] CMPon 07-26-2023 Albumin Level 3.2 G/dL Low 3.5-5.0 [facility] ([place] Comment on above: Performed By: #### T SH, CMP, GFR #### [address] [address] Albumin/Globulin [Mass ratio] 0.6 {ratio} Low 1.1-2.5 [facility] ([place] Comment on above: Performed By: #### T SH, CMP, GFR #### [address] [address] ALP [Catalytic activity/Vol] 279 U/L High 40-135 [facility] ([place] Comment on above: Performed By: #### T SH, CMP, GFR #### [address] [address] ALT [Catalytic activity/Vol] 106 U/L High 14-59 [facility] ([place] Comment on above: Performed By: #### T SH, CMP, GFR #### [address] [address] AST [Catalytic activity/Vol] 144 U/L High 10-40 [facility] ([place] Comment on above: Performed By: #### T GIOVANNA, CMP, GFR #### [address] [address] Bili Total 0.8 mg/dL Normal 0.2-1.0 [facility] [place] Comment on above: Result Comment: Use of this assay is not recommended for patients undergoing treatment with eltrombopag due to the potential for falsely elevated results. Performed By: #### T SH, CMP, GFR #### [address] [address] BUN/Creatinine Ratio 17 ratio Normal 7-27 [facility] Comment on above: Performed By: #### T GIOVANNA, CMP, GFR #### [address] [address] Calcium [Mass/Vol] 9.4 mg/dL Normal 8.4-10.2 [facility] [place] Comment on above: Performed By: #### T GIOVANNA, CMP, GFR #### [address] [address] Chloride [Moles/Vol] 97 mmol/L Low 98-107 [facility] [place] Comment on above: Performed By: #### T GIOVANNA, CMP, GFR #### [address] [address] CO2 [Moles/Vol] 32 mmol/L High 22-29 [facility] [place] Comment on above: Performed By: #### T GIOVANNA, CMP, GFR #### [address] [address] Creatinine [Mass/Vol] 0.89 mg/dL Normal 0.55-1.02 [facility] ([place]) Comment on above: Performed By: #### T GIOVANNA, CMP, GFR #### [address] [address] Electrolyte Balance 6.0 mEq/L Normal 4.0-15.0 [facility] ([place]) Comment on above: Performed By: #### T SH, CMP, GFR #### [address] [address] Globulin 5.3 G/dL Normal [facility] [facility] ([place] Comment on above: Performed By: #### T GIOVANNA, CMP, GFR #### [address] [address] Glucose [Mass/Vol] 388 mg/dL High 70-105 [facility] ([place]) Comment on above: Performed By: #### T GIOVANNA, CMP, GFR #### [address] [address] Potassium [Moles/Vol] 5.3 mmol/L High 3.5-5.1 [facility] ([place]) Comment on above: Performed By: #### T GIOVANNA, CMP, GFR #### [address] [address] Sodium [Moles/Vol] 135 mmol/L Low 136-145 [facility] ([place]) Comment on above: Performed By: #### T GIOVANNA CMP, GFR #### [address] [address] Total Protein 8.5 G/dL High 6.4-8.2 [facility] ([place]) Comment on above: Performed By: #### T GIOVANNA CMP, GFR #### [address] [address] Urea nitrogen [Mass/Vol] 15 mg/dL Normal 7-18 [facility] ([place]) Comment on above: Performed By: #### T GIOVANNA, CMP, GFR #### [address] [address] LABORATORYOrdered By: SYSTEM SYSTEM on 07-26-2023 Albumin [...] 07-26-2023 Cholesterol [Mass/Vol] 169 mg/dL Normal 0-200 [facility] ([place]) Comment on above: Result Comment: Chol esterol Reference Interval: Less than 200 Desirable 200-239 Borderline high risk 240 and above High risk Performed By: #### T SH, CMP, GFR #### [address] [address] Cholesterol in HDL [Mass/Vol] 33 mg/dL Low 40-60 [facility] ([place]) Comment on above: Performed By: #### T SH, CMP, GFR #### [address] [address] Cholesterol in LDL [Mass/Vol] 67 mg/dL Normal 0-130 [facility] ([place]) Comment on above: Performed By: #### T SH, CMP, GFR #### [address] [address] Triglyceride [Mass/Vol] 344 mg/dL High 0-150 [facility] ([place]) Comment on above: Result Comment: Trig lyceride Reference Interval: Less than 150 Normal 150-199 Borderline high risk 200-499 High risk 500 or higher Very high risk Performed By: #### T SH, CMP, GFR #### [address] [address] .Auto Diffon 06-08-2023 Basophil, Absolute 0.1 10 3/mcL Normal 0.0-0.2 [facility] [place]) Comment on above: Performed By: #### T SH, CMP, GFR #### [address] [address] Basophils/100 WBC (Bld) 0.7 % Normal 0.0-2.5 [facility] ([place]) Comment on above: Performed By: #### T SH, CMP, GFR #### [address] [address] Eosinophil, Absolute 0.5 10 3/mcL High 0.0-0.4 [facility] ([place]) Comment on above: Performed By: #### T SH, CMP, GFR #### [address] [address] Eosinophils/100 WBC (Bld) 5.0 % Normal 0.0-7.0 [facility] ([place]) Comment on above: Performed By: #### T SH, CMP, GFR #### [address] [address] Lymphocyte, Absolute 2.9 10 3/mcL Normal 0.8-3.9 [facility] ([place]) Comment on above: Performed By: #### T SH, CMP, GFR #### [address] [address] Lymphocytes/100 WBC (Bld) 28.4 % Normal 10.0-50.0 [facility] ([place]) Comment on above: Performed By: #### T SH, CMP, GFR #### [address] [address] Monocyte, Absolute 0.5 10 3/mcL Normal 0.2-1.0 [facility] ([place]) Comment on above: Performed By: #### T SH, CMP, GFR #### [address] [address] Monocytes/100 WBC (Bld) 5.0 % Normal 1.7-13.0 [facility] ([place]) Comment on above: Performed By: #### T SH, CMP, GFR #### [address] [address] Neutrophils/100 WBC (Bld) 60.9 % Normal 37.0-80.0 [facility] ([place]) Comment on above: Performed By: #### T SH, CMP, GFR #### [address] [address] .GFRon 06-08-2023 GFR 66 ml/min/1.73sqm Normal [facility] ([place]) Comment on above: Result Comment: GFR [...] By: #### T SH, CMP, GFR #### [address] [address] GFR Non- 55 ml/min/1.73sqm Normal [facility] ([place]) Comment on above: Result Comment: GFR Population [...] By: #### T GIOVANNA, CMP, GFR #### [address] [address] .MDWon 06-08-2023 Monocyte Distribution Width 22.23 High 0.00-20.00 [facility] ([place]) Comment on above: Result Comment: For adults in ED, MDW>20.0 may be associated with a higher risk of sepsis during the first 12hrs of hospital admission Performed By: #### T GIOVANNA, CMP, GFR #### [address] [address] .NEUABSon 06-08-2023 Neutrophil, Absolute 6.2 10 3/mcL Normal 2.9-6.2 [facility] ([place]) Comment on above: Performed By: #### T SH, CMP, GFR #### [address] [address] .Urinalysis Microscopic (AO) on 06-08-2023 UA RBC 10-[address] [facility] ([place]) Comment on above: Performed By: #### T SH, CMP, GFR #### [address] [address] UA Squam Epithelial 0-5 Abnormal None Seen [facility] ([place]) Comment on above: Performed By: #### T SH, CMP, GFR #### [place] [address] UA WBC LOADED Abnormal None Seen [facility] ([place]) Comment on above: Performed By: #### T SH, CMP, GFR #### [place] [address] CBCon 06-08-2023 Erythrocyte distribution width (RBC) [Ratio] 16.3 % High 11.5-14.5 [facility] ([place]) Comment on above: Performed By: #### C BC, BALTAZAR, ANEU, MDW, LIP, CMP, GFR #### [place] [address] Hematocrit (Bld) [Volume fraction] 38.8 % Normal 37.0-47.0 [facility] ([place]) Comment on above: Performed By: #### C BC, BALTAZAR, ANEU, MDW, LIP, CMP, GFR #### [place] [address] Hgb 13.1 G/dL Normal 12.0-16.0 [facility] ([place]) Comment on above: Performed By: #### C BC, ADIFF, ANEU, MDW, LIP, CMP, GFR #### [place] [address] MCH (RBC) [Entitic mass] 28.0 pg Normal 27.0-31.2 [facility] ([place]) Comment on above: Performed By: #### C BC, BALTAZAR, ANEU, MDW, LIP, CMP, GFR #### [place] [address] MCHC 33.8 G/dL Normal 33.0-37.0 [facility] ([place]) Comment on above: Performed By: #### C BC, ADIFF, ANEU, MDW, LIP, CMP, GFR #### [place] [id number] MCV (RBC) [Entitic vol] 82.7 fL Normal 80.0-94.0 [facility] ([place]) Comment on above: Performed By: #### C CAPRI, BALTAZAR, RAVEN, MDW, LIP, CMP, GFR #### [address] [address] Platelet 216 10 3/mcL Normal 130-400 [facility] ([place]) Comment on above: Performed By: #### C CAPRI, BALTAZAR, RAVEN, MDW, LIP, CMP, GFR #### [address] [address] Platelet mean volume (Bld) [Entitic vol] 7.8 fL Normal 7.4-10.4 [facility] ([place]) Comment on above: Performed By: #### C CAPRI, BALTAZAR, RAVEN, MDW, LIP, CMP, GFR #### [address] [address] RBC 4.68 10 6/mcL Normal 4.20-5.40 [facility] ([place]) Comment on above: Performed By: #### C CAPRI, BALTAZAR, RAVEN, MDW, LIP, CMP, GFR #### [address] [address] WBC 10.2 10 3/mcL Normal 4.6-10.8 [facility] ([place]) Comment on above: Performed By: #### C CAPRI, BALTAZAR, RAVEN, MDW, LIP, CMP, GFR #### [address] [address] CMPon 06-08-2023 Albumin Level 3.4 G/dL Low 3.5-5.0 [facility] ([place]) Comment on above: Performed By: #### T SH, CMP, GFR #### [address] [address] Albumin/Globulin [Mass ratio] 0.7 {ratio} Low 1.1-2.5 [facility] ([place]) Comment on above: Performed By: #### T SH, CMP, GFR #### [address] [address] ALP [Catalytic activity/Vol] 242 U/L High 40-135 [facility] ([place]) Comment on above: Performed By: #### T SH, CMP, GFR #### [address] [address] ALT [Catalytic activity/Vol] 68 U/L High 14-59 [facility] ([place]) Comment on above: Performed By: #### T SH, CMP, GFR #### [address] [address] AST [Catalytic activity/Vol] 53 U/L High 10-40 [facility] ([place]) Comment on above: Performed By: #### T SH, CMP, GFR #### [address] [address] Bili Total 0.5 mg/dL Normal 0.2-1.0 [facility] ([place]) Comment on above: Result Comment: Use of this assay is not recommended for patients undergoing treatment with eltrombopag due to the potential for falsely elevated results. Performed By: #### T GIOVANNA, CMP, GFR #### [address] [address] BUN/Creatinine Ratio 14 ratio Normal 7-27 [facility] [place] Comment on above: Performed By: #### T GIOVANNA, CMP, GFR #### [address] [address] Calcium [Mass/Vol] 8.9 mg/dL Normal 8.4-10.2 [facility] ([place]) Comment on above: Performed By: #### T SH, CMP, GFR #### [address] [address] Chloride [Moles/Vol] 96 mmol/L Low 98-107 [facility] [place] Comment on above: Performed By: #### T SH, CMP, GFR #### [address] [address] CO2 [Moles/Vol] 31 mmol/L High 22-29 [facility] ([place]) Comment on above: Performed By: #### T SH, CMP, GFR #### [address] [address] Creatinine [Mass/Vol] 1.04 mg/dL High 0.55-1.02 [facility] ([place]) Comment on above: Performed By: #### T SH, CMP, GFR #### [address] [address] Electrolyte Balance 5.0 mEq/L Normal 4.0-15.0 [facility] ([place]) Comment on above: Performed By: #### T SH, CMP, GFR #### [address] [address] Globulin 5.0 G/dL Normal [facility] ([place]) Comment on above: Performed By: #### T SH, CMP, GFR #### [address] [address] Glucose [Mass/Vol] 355 mg/dL High 70-105 [facility] ([place]) Comment on above: Performed By: #### T SH, CMP, GFR #### [address] [address] Potassium [Moles/Vol] 4.6 mmol/L Normal 3.5-5.1 [facility] ([place]) Comment on above: Performed By: #### T SH, CMP, GFR #### [address] [address] Sodium [Moles/Vol] 132 mmol/L Low 136-145 [facility] ([place] Comment on above: Performed By: #### T SH, CMP, GFR #### [address] [address] Total Protein 8.4 G/dL High 6.4-8.2 [facility] ([place]) Comment on above: Performed By: #### T SH, CMP, GFR #### [address] [address] Urea nitrogen [Mass/Vol] 15 mg/dL Normal 7-18 [facility] ([place]) Comment on above: Performed By: #### T SH, [facility], GFR #### [place] [address] [place], [place] [address] CT ABD/PELVIS W/ IV CONTRAST ONLYon 06-08-2023 CT ABD/PELVIS W/ IV CONTRAST ONLY ORIGINAL EXAMINATION: CT OF THE ABDOMEN AND PELVIS WITH [id number]/[id number]/2023 5:[address] ABDOMEN/PELVIS WITH CONTRAST Multiple [...] ORDERING SYSTEM PROVIDED HISTORY: Reason for Exam: [id number]^ FINDINGS: Lung bases/lower mediastinum: Part solid pulmonary [...] 6:01:19 PM Ordering Provider: CINDY ROGERS Normal [facility] ([place]) LIPon 06-08-2023 Lipase Level 27 U/L Normal 16-77 [facility] ([place]) Comment on above: Performed By: #### T SH, CMP, GFR #### [address] [address] UAon 06-08-2023 Color (U) Yellow Normal [facility] ([place]) Comment on above: Performed By: #### T SH, CMP, GFR #### [address] [address] Glucose (U) [Mass/Vol] 500 mg/dL Abnormal Negative [facility] ([place]) Comment on above: Performed By: #### T SH, CMP, GFR #### [address] [address] Ketones Ql (U) Negative Normal Negative [facility] ([place]) Comment on above: Performed By: #### T SH, CMP, GFR #### [address] [address] UA Appear Cloudy Abnormal Clear [facility] ([place]) Comment on above: Performed By: #### T SH, CMP, GFR #### [address] [address] UA Blood Moderate Abnormal Negative [facility] ([place]) Comment on above: Performed By: #### T SH, CMP, GFR #### [address] [address] UA Leuk Est Trace Abnormal Negative [facility] ([place]) Comment on above: Performed By: #### T SH, CMP, GFR #### [address] [address] UA Nitrite Negative Normal Negative [facility] ([place]) Comment on above: Performed By: #### T SH, CMP, GFR #### [address] [address] UA pH 6.0 Normal 5.0 - 8.0 [facility] ([place]) Comment on above: Performed By: #### T SH, CMP, GFR #### [address] [address] UA Protein Trace Normal Negative [facility] ([place]) Comment on above: Performed By: #### T SH, CMP, GFR #### [address] [address] UA Spec Grav 1.020 Normal 1.015-1.025 [facility] ([place]) Comment on above: Performed By: #### T SH, CMP, GFR #### [address] [address] UA Specimen Type Void Normal [facility] ([place]) Comment on above: Performed By: #### T SH, CMP, GFR #### [address] [address] UA Urobilinogen 0.2 E.U./dL Normal 0.2-1.0 [facility] ([place]) Comment on above: Performed By: #### T SH, CMP, GFR #### [address] [address] Urobilinogen (U) [Mass/Vol] Negative Normal Negative [facility] ([place]) Comment on above: Performed By: #### T SH, CMP, GFR #### [address] [address] Absolute lymphocyte countOrd ered By: Sergo Bustillos on 04-20-2023 Lymphocytes Auto (Unsp spec) [#/Vol] 2.51 10*3/uL 0.83-4.51 [facility] Basophil percentageOrdered B y: Sergo Bustillos on 04-20-2023 Basophils/100 WBC (Bld) 1.3 % 0-1 [facility] Chloride [Moles/Vol] 92 mmol/L 98-107 [facility] Eosinophils/100 WBC (Bld) 4.2 % 0-5 [facility] Glucose [Mass/Vol] 347 mg/dL 74-[address] [facility] Comment on above: Glucose result great er than or equal to 200 mg/dLsuggests DIABETES MELLITUS per A.D.A. criteria. Neutrophils (Bld) [#/Vol] 5.4 10*3/uL 2.0-7.7 [facility] Neutrophils/100 WBC (Bld) 58.1 % 47-70 [facility] Potassium [Moles/Vol] 4.2 mmol/L 3.5-5.1 [facility] Sodium [Moles/Vol] 128 mmol/L 136-[address] [facility] WBC (Bld) [#/Vol] 9.2 10*3/uL 4.4-11.[address] [facility] Blood erythrocytes count (nu mber/volume)Ordered By: Sergo Bustillos on 04-20-2023 RBC (Bld) [#/Vol] 4.58 10*6/uL 4.2-5.4 [facility] Blood hemoglobin measurement (mass/volume)Ordered By: Sergo Bustillos on 04-20-2023 Hemoglobin (Bld) [Mass/Vol] 12.3 g/dL 12.0-15.0 [facility] Blood lymphocytes/100 leukoc ytesOrdered By: Sergo Bustillos on 04-20-2023 Lymphocytes/100 WBC (Bld) 27.2 % 19-41 [facility] Blood monocytes/100 leukocyt esOrdered By: Sergo Bustillos on 04-20-2023 Monocytes/100 WBC (Bld) 5.5 % 0-10 [facility] Blood platelet mean volumeOr dered By: Sergo Bustillos on 04-20-2023 Platelet mean volume (Bld) [Entitic vol] 10.5 fL 6.2-12.0 [facility] Determination of erythrocyte mean corpuscular volume (MCV)Ordered By: Sergo Bustillos on 04-20-2023 MCV (RBC) [Entitic vol] 84.7 fL 81-99 [facility] Glucose Glucometer (BldC) [M ass/Vol]Ordered By: Sergo Bustillos on 04-20-2023 Glucose [Mass/Vol] 352 mg/dL 74-[address] [facility] Comment on above: MANAGEMENT OF PATIEN T CARE PER NURSING PROTOCOL Hematocrit Auto (Bld) [Volum e fraction]Ordered By: Sergo Bustillos on 04-20-2023 Hematocrit (Bld) [Volume fraction] 38.8 % 37-47 [facility] Laboratory - Chemistry and C hemistry - challengeOrdered By: Sergo Bustillos on 04-20-2023 CO2 [Moles/Vol] 29.0 mmol/L 21.0-32.0 [facility] Urea nitrogen/Creatinine [Mass ratio] 25.5 mg/mg 10-20 [facility] Laboratory - Hematology and Cell countsOrdered By: Sergo Bustillos on 04-20-2023 Erythrocyte distribution width (RBC) [Entitic vol] 45.1 fL 35.1-43.9 [facility] Erythrocyte distribution width (RBC) [Ratio] 14.8 % 11.6-14.6 [facility] Immature granulocytes/100 WBC (Bld) 3.700 % 0.0-0.9 [facility] Comment on above: IG% - Immature Granu locytes (promyelocytes, myelocytes and metamyelocytes) > 1% indicates that a LEFT SHIFT is Present. MCH (RBC) [Entitic mass] 26.9 pg 27.0-32.0 [facility] Nucleated RBC/100 WBC (Bld) [Ratio] 0 % 0-5 [facility] MCHC Auto (RBC) [Mass/Vol]Or dered By: Sergo Bustillos on 04-20-2023 MCHC (RBC) [Mass/Vol] 31.7 g/dL 32-36 [facility] No Panel InformationOrdered By: Sergo Bustillos on 04-20-2023 Estimated Creatinine Clearance Calc 46.47 ml/min [facility] Estimated GFR (MDRD) Amer 72 mL/min >60 [facility] Comment on above: GFR Calc Estimated GFR (MDRD) Non-Af Amer 60 mL/min >60 [facility] Comment on above: Non- GFR Calc Platelets bldOrdered By: Omer Bustillos on 04-20-2023 Platelets (Bld) [#/Vol] 213 10*3/uL 150-450 [facility] Respiratory pathogens detect ion panel by molecular detection methodOrdered By: Cecilia Villa on 04-20-2023 Respiratory pathogens DNA and RNA panel [place]+probe (Resp) [facility] Serum or plasma calcium janie urement (mass/volume)Ordered By: Sergo Bustillos on 04-20-2023 Calcium [Mass/Vol] 9.2 mg/dL 8.5-10.[address] [facility] Serum or plasma creatinine m easurement (mass/volume)Ordered By: Sergo Bustillos on 04-20-2023 Creatinine [Mass/Vol] 1.02 mg/dL 0.55-1.02 [facility] Comment on above: The validity of the calculated GFR & GFRAA in patients over 70 years has not been determined. Clinical correlation is essential. Serum or plasma urea nitroge n measurement (mass/volume)Ordered By: Sergo Bustillos on 04-20-2023 Urea nitrogen [Mass/Vol] 26 mg/dL 7-18 [facility] Thin prep Papanicolaou smear with manual screeningOrdered By: Sergo Bustillos on 04-20-2023 Thin prep Papanicolaou smear with manual screening 7 5-15 [facility] Basophil percentageOrdered B y: Cecilia Villa on 04-19-2023 Basophil percentage 4.0 mg/dL 2.5-4.9 [facility] Laboratory - Chemistry and C hemistry - challengeOrdered By: Cecilia Villa on 04-19-2023 Magnesium [Mass/Vol] 1.9 mg/dL 1.6-2.6 [facility] Assessment of wrist artery p atency prior to arterial punctureOrdered By: Cecilia Villa on 04-18-2023 Arterial patency Wrist artery --pre arterial puncture Positive [facility] Base excessOrdered By: Audi Villa on 04-18-2023 Base excess Calc (BldV) [Moles/Vol] 6 mmol/L -2-2 [facility] Basophil percentageOrdered B y: Cecilia Villa on 04-18-2023 Basophil percentage 30.6 mmol/L 22-26 [facility] Basophils/100 WBC (Bld) 89 % 95-99 [facility] Basophil percentageOrdered B y: Candy Archuleta on 04-18-2023 Bilirubin [Mass/Vol] 0.70 mg/dL 0.20-1.00 [facility] Comment on above: For patients on eltr ombopag therapy, use of Dimension Fitzpatrick TBIL is not recommended. Protein [Mass/Vol] 8.7 g/dL 6.4-8.[address] [facility] Basophil percentage >100 SEEN /hpf 0-5 [facility] Bilirubin Test strip Ql (U)O rdered By: Candy Archuleta on 04-18-2023 Bilirubin Ql (U) Negative Negative [facility] CO2 (BldA) [Partial pressure ]Ordered By: Cecilia Villa on 04-18-2023 CO2 (Bld) [Partial pressure] 46.4 mm[Hg] 35-45 [facility] Culture, urineOrdered By: Ramiro Archuleta on 04-18-2023 Bacteria identified Cx Nom (U) Escherichia coli [facility] Ketones Test strip Ql (U)Ord ered By: Candy Archuleta on 04-18-2023 Ketones Ql (U) Negative Negative [facility] Laboratory - Chemistry and C hemistry - challengeOrdered By: Candy Archuleta on 04-18-2023 ALP [Catalytic activity/Vol] 220 U/L 45-117 [facility] ALT [Catalytic activity/Vol] 50 U/L 13-56 [facility] Globulin (S) [Mass/Vol] 5.7 g/dL 2.2-4.2 [facility] Lipase [Catalytic activity/Vol] 26 U/L 13-75 [facility] Comment on above: Please note:LIPASE r evised reference range effective 22. New Lipase methodology. Expected to produce lower values than the previous assay method. NEW Reference Range: 13 - 75 U/L Natriuretic peptide B (Bld) [Mass/Vol] 6.4 pg/mL 0-100 [facility] Mucus LM Ql (Urine sed)Order ed By: Candy Archuleta on 04-18-2023 Mucus Ql (Urine sed) 0 SEEN /hpf [facility] Nitrite Test strip Ql (U)Ord ered By: Candy Archuleta on 04-18-2023 Nitrite Ql (U) Negative Negative [facility] No Panel InformationOrdered By: Cecilia Villa on 04-18-2023 Blood Gas Sample Site L Radial [facility] Blood Gas Specimen Type ART [facility] Blood Gas Total CO2 32 [facility] Vent Mode Not entered [facility] Oxygen Delivery Device Room Air [facility] D-Dimer Quantitative (PE/DVT) 0.54 FEU/ug/m 0.27-0.49 [facility] Comment on above: CRITICAL VALUE VERIF IED. CALLED TO DILAN TYLER RN ER 04/18/23 [facility]8 Josef Hernandez.RESULTS READ BACK BY SAME . D-Dimer ELEVATED (>0.49): Additional studies and clinicalassessments are indicated to conclude diagnosis of:Deep Vein Thrombosis (DVT) or Pulmonary Embolism (PE) Oxygen (BldA) [Partial press ure]Ordered By: Cecilia Villa on 04-18-2023 Oxygen (Bld) [Partial pressure] 55 mmHG 75-100 [facility] Protein Test strip Ql (U)Ord ered By: Candy Archuleta on 04-18-2023 Protein Ql (U) 30 mg/dl Negative [facility] Serum or plasma albumin janie urement (mass/volume)Ordered By: Candy Archuleta on 04-18-2023 Albumin [Mass/Vol] 3.0 g/dL 3.2-5.[address] [facility] Serum or plasma albumin/glob ulin mass ratioOrdered By: Candy Archuleta on 04-18-2023 Albumin/Globulin [Mass ratio] 0.5 {ratio} 0.9-2.4 [facility] Squamous epithelial cells de tection in urine sediment by light microscopyOrdered By: Candy Archuleta on 04-18-2023 Epithelial cells.squamous LM Ql (Urine sed) 10-25 SEEN /hpf 5-10 [facility] Thin prep Papanicolaou smear with manual screeningOrdered By: Candy Archuleta on 04-18-2023 Thin prep Papanicolaou smear with manual screening 48 U/L 15-37 [facility] Comment on above: Moderate Hemolysis, Result may be falsely increased. Urine blood detectionOrdered By: Candy Archuleta on 04-18-2023 RBC Ql (U) 150 /ul Negative [facility] RBC Ql (U) 10-25 SEEN /hpf 0-5 [facility] Urine clarityOrdered By: Maria T Archuleta on 04-18-2023 Clarity (U) Cloudy Clear [facility] Urine color determinationOrd ered By: Candy Archuleta on 04-18-2023 Color (U) Yellow Yellow [facility] Urine glucose detectionOrder ed By: Candy Archuleta on 04-18-2023 Glucose Ql (U) 1000 mg/dl Normal [facility] Urine leukocyte esterase det ection by dipstickOrdered By: Candy Archuleta on 04-18-2023 Leukocyte esterase Test strip Ql (U) 500 /ul Negative [facility] Urine pHOrdered By: Candy hendrix on 04-18-2023 pH (U) 6.0 [pH] 5.0 - 8.0 [facility] Urine sediment bacteria coun t by microscopy (number/high power field)Ordered By: Candy Archuleta on 04-18-2023 Bacteria LM.HPF (Urine sed) [#/Area] 2 /[HPF] None Seen [facility] Urine specific gravity measu rementOrdered By: Candy Archuleta on 04-18-2023 Specific gravity (U) [Rel density] 1.015 1.002-1.030 [facility] Urobilinogen Auto test strip Ql (U)Ordered By: Candy Archuleta on 04-18-2023 Urobilinogen Ql (U) 1 mg/dl Normal [facility] pH measurementOrdered By: Yared Villa on 04-18-2023 pH (Unsp spec) 7.43 [pH] 7.35-7.45 [facility] Basophil percentageOrdered B y: Jaziel Drake on 04-17-2023 Cholesterol [Mass/Vol] 135 mg/dL <200 [facility] Comment on above: <200 mg/dL Desirable 200-240 mg/dL Borderline >240 mg/dL High Risk Triglyceride [Mass/Vol] 314 mg/dL <199 [facility] Comment on above: The drugs N-Acetylcy steine and Metamizole may falsely depress this assay.Serum Triglycerides Reference Interval Normal <150 mg/dL Borderline high 150 - 199 mg/dL High 200 - 499 mg/dL Very High > or = 500 mg/dL Laboratory - Chemistry and C hemistry - challengeOrdered By: Jaziel Drake on 04-17-2023 Free T4 [Mass/Vol] 0.75 ng/dL 0.76-1.[address] [facility] No Panel InformationOrdered By: Jaziel Drake on 04-17-2023 Thyroid Stimulating Hormone (TSH) 3.79 uIU/mL 0.358-3.74 [facility] Vitamin D 25-Hydroxy 22.2 ng/mL [facility] Comment on above: Vitamin D 25(OH) Sta tus Range Deficiency <20 ng/mL (50nmol/L) Insufficiency 20 - 30 ng/mL (50 - 75 nmol/L) Sufficiency 30 - 100 ng/mL (75 - 250 nmol/L) Toxicity >100 ng/mL (>250 nmol/L) Serum or plasma cholesterol in HDL measurement (mass/volume)Ordered By: Jaziel Drake on 04-17-2023 Cholesterol in HDL [Mass/Vol] 28 mg/dL >40 [facility] Comment on above: The drugs N-Acetylcy steine and Metamizole may falsely depress this assay. Reference Range HDL <40 mg/dL Low HDL Cholesterol HDL >or= 60 mg/dL High HDL Cholesterol Serum or plasma cholesterol in VLDL measurement (mass/volume)Ordered By: Jaziel Drake on 04-17-2023 Cholesterol in VLDL [Mass/Vol] 63 mg/dL 5-40 [facility] Serum or plasma low density lipoprotein (LDL) cholesterol measurement (mass/volume)Ordered By: Jaziel Drake on 04-17-2023 Cholesterol in LDL [Mass/Vol] 44 mg/dL 0-130 [facility] Laboratory - Hematology and Cell countson 02-18-2023 HbA1c (Bld) [Mass fraction] 10.8 % 4.2-6.3 [facility] Absolute lymphocyte countOrd ered By: Joel Mendoza on 01-20-2023 Lymphocytes Auto (Unsp spec) [#/Vol] 2.86 10*3/uL 0.83-4.51 [facility] Amorphous sediment detection in urine sediment by light microscopyOrdered By: Joel Mendoza on 01-20-2023 Amorphous sediment LM Ql (Urine sed) 1+ URATE [facility] Basophil percentageOrdered B y: Joel Mendoza on 01-20-2023 Basophil percentage 50-100 SEEN /hpf 0-5 [facility] Basophils/100 WBC (Bld) 0.8 % 0-1 [facility] Chloride [Moles/Vol] 99 mmol/L 98-107 [facility] Eosinophils/100 WBC (Bld) 2.0 % 0-5 [facility] Glucose [Mass/Vol] 148 mg/dL 74-[address] [facility] Comment on above: Fasting Glucose resu lt greater than or equal to 126 mg/dL suggests DIABETES MELLITUS per A.D.A. criteria. Neutrophils (Bld) [#/Vol] 6.9 10*3/uL 2.0-7.7 [facility] Neutrophils/100 WBC (Bld) 64.6 % 47-70 [facility] Potassium [Moles/Vol] 4.9 mmol/L 3.5-5.1 [facility] Comment on above: Moderate Hemolysis, Result may be falsely increased. Sodium [Moles/Vol] 132 mmol/L 136-[address] [facility] WBC (Bld) [#/Vol] 10.7 10*3/uL 4.4-11.0 [facility] Bilirubin Test strip Ql (U)O rdered By: Joel Mendoza on 01-20-2023 Bilirubin Ql (U) 1 mg/dL Negative [facility] Comment on above: COLOR OF URINE MAY A FFECT DIPSTICK RESULTS. Blood erythrocytes count (nu mber/volume)Ordered By: Joel Mendoza on 01-20-2023 RBC (Bld) [#/Vol] 4.89 10*6/uL 4.2-5.4 [facility] Blood hemoglobin measurement (mass/volume)Ordered By: Joel Mendoza on 01-20-2023 Hemoglobin (Bld) [Mass/Vol] 12.8 g/dL 12.0-15.0 [facility] Blood lymphocytes/100 leukoc ytesOrdered By: Joel Mendoza on 01-20-2023 Lymphocytes/100 WBC (Bld) 26.6 % 19-41 [facility] Blood monocytes/100 leukocyt esOrdered By: Joel Mendoza on 01-20-2023 Monocytes/100 WBC (Bld) 5.4 % 0-10 [facility] Blood platelet mean volumeOr dered By: Joel Mendoza on 01-20-2023 Platelet mean volume (Bld) [Entitic vol] 10.3 fL 6.2-12.0 [facility] Culture, urineOrdered By: Alisa Mendoza on 01-20-2023 Bacteria identified Cx Nom (U) Presumptive Lactobacillus sp. [facility] Determination of erythrocyte mean corpuscular volume (MCV)Ordered By: Joel Mendoza on 01-20-2023 MCV (RBC) [Entitic vol] 82.4 fL 81-99 [facility] Hematocrit Auto (Bld) [Volum e fraction]Ordered By: Joel Mendoza on 01-20-2023 Hematocrit (Bld) [Volume fraction] 40.3 % 37-47 [facility] Ketones Test strip Ql (U)Ord ered By: Joel Mendoza on 01-20-2023 Ketones Ql (U) 5 mg/dl Negative [facility] Laboratory - Chemistry and C hemistry - challengeOrdered By: Joel Mendoza on 01-20-2023 CO2 [Moles/Vol] 30.0 mmol/L 21.0-32.0 [facility] Natriuretic peptide B (Bld) [Mass/Vol] 6.0 pg/mL 0-100 [facility] Urea nitrogen/Creatinine [Mass ratio] 16.5 mg/mg 10-20 [facility] - Hematology and Cell countsOrdered By: Joel Mendoza on 01-20-2023 Erythrocyte distribution width (RBC) [Entitic vol] 43.8 fL 35.1-43.9 [facility] Erythrocyte distribution width (RBC) [Ratio] 14.7 % 11.6-14.6 [facility] Immature granulocytes/100 WBC (Bld) 0.600 % 0.0-0.9 [facility] Comment on above: IG% - Immature Granu locytes (promyelocytes, myelocytes and metamyelocytes) > 1% indicates that a LEFT SHIFT is Present. MCH (RBC) [Entitic mass] 26.2 pg 27.0-32.0 [facility] Nucleated RBC/100 WBC (Bld) [Ratio] 0 % 0-5 [facility] MCHC Auto (RBC) [Mass/Vol]Or dered By: Joel Mendoza on 01-20-2023 MCHC (RBC) [Mass/Vol] 31.8 g/dL 32-36 [facility] Mucus LM Ql (Urine sed)Order ed By: Joel Mendoza on 01-20-2023 Mucus Ql (Urine sed) 0 SEEN /hpf [facility] Nitrite Test strip Ql (U)Ord ered By: Joel Mendoza on 01-20-2023 Nitrite Ql (U) Negative Negative [facility] No Panel InformationOrdered By: Joel Mendoza on 01-20-2023 Estimated Creatinine Clearance Calc 39.17 ml/min [facility] Estimated GFR (MDRD) Amer 59 mL/min >60 [facility] Comment on above: GFR Calc Estimated GFR (MDRD) Non-Af Amer 49 mL/min >60 [facility] Comment on above: Non- GFR Calc Thyroid Stimulating Hormone (TSH) 4.15 uIU/mL 0.358-3.74 [facility] Platelets bldOrdered By: Kimi Mendoza on 01-20-2023 Platelets (Bld) [#/Vol] 236 10*3/uL 150-450 [facility] Protein Test strip Ql (U)Ord ered By: Joel Mendoza on 01-20-2023 Protein Ql (U) 100 mg/dl Negative [facility] Serum or plasma calcium janie urement (mass/volume)Ordered By: Joel Mendoza on 01-20-2023 Calcium [Mass/Vol] 9.2 mg/dL 8.5-10.[address] [facility] Serum or plasma creatinine m easurement (mass/volume)Ordered By: Joel Mendoza on 01-20-2023 Creatinine [Mass/Vol] 1.21 mg/dL 0.55-1.02 [facility] Comment on above: The validity of the calculated GFR & GFRAA in patients over 70 years has not been determined. Clinical correlation is essential. Serum or plasma urea nitroge n measurement (mass/volume)Ordered By: Joel Mendoza on 01-20-2023 Urea nitrogen [Mass/Vol] 20 mg/dL 7-18 [facility] Squamous epithelial cells de tection in urine sediment by light microscopyOrdered By: Joel Mendoza on 01-20-2023 Epithelial cells.squamous LM Ql (Urine sed) 0-5 SEEN /hpf 5-10 [facility] Thin prep Papanicolaou smear with manual screeningOrdered By: Joel Mendoza on 01-20-2023 Thin prep Papanicolaou smear with manual screening 3 5-15 [facility] Urine blood detectionOrdered By: Joel Mendoza on 01-20-2023 RBC Ql (U) 250 /ul Negative [facility] RBC Ql (U) 25-50 SEEN /hpf 0-5 [facility] Urine clarityOrdered By: Kimi Mendoza on 01-20-2023 Clarity (U) Cloudy Clear [facility] Urine color determinationOrd ered By: Joel Mendoza on 01-20-2023 Color (U) Yellow Yellow [facility] Urine glucose detectionOrder ed By: Joel Mendoza on 01-20-2023 Glucose Ql (U) Normal mg/dl Normal [facility] Urine leukocyte esterase det ection by dipstickOrdered By: Joel Mendoza on 01-20-2023 Leukocyte esterase Test strip Ql (U) 500 /ul Negative [facility] Urine pHOrdered By: Joel lamar on 01-20-2023 pH (U) 5.0 [pH] 5.0 - 8.0 [facility] Urine sediment bacteria coun t by microscopy (number/high power field)Ordered By: Joel Mendoza on 01-20-2023 Bacteria LM.HPF (Urine sed) [#/Area] 0 /[HPF] None Seen [facility] Urine sediment yeast count b y microscopy (number/high powered field)Ordered By: Joel Mendoza on 01-20-2023 Yeast LM.HPF (Urine sed) [#/Area] RARE /hpf None Seen [facility] Urine specific gravity measu rementOrdered By: Joel Mendoza on 01-20-2023 Specific gravity (U) [Rel density] 1.020 1.002-1.030 [facility] Urobilinogen Auto test strip Ql (U)Ordered By: Joel Mendoza on 01-20-2023 Urobilinogen Ql (U) 4 mg/dl [facility] Absolute lymphocyte countOrd ered By: Dr. Hill on 01-07-2023 Lymphocytes Auto (Unsp spec) [#/Vol] 2.80 10*3/uL 0.83-4.51 [facility] Basophil percentageOrdered B y: Dr. Hill on 01-07-2023 Basophil percentage 10-25 SEEN /hpf 0-5 [facility] Basophils/100 WBC (Bld) 0.9 % 0-1 [facility] Chloride [Moles/Vol] 95 mmol/L 98-107 [facility] Eosinophils/100 WBC (Bld) 1.8 % 0-5 [facility] Glucose [Mass/Vol] 413 mg/dL 74-[address] [facility] Comment on above: Glucose result great er than or equal to 200 mg/dLsuggests DIABETES MELLITUS per A.D.A. criteria. Neutrophils (Bld) [#/Vol] 5.5 10*3/uL 2.0-7.7 [facility] Neutrophils/100 WBC (Bld) 60.2 % 47-70 [facility] Potassium [Moles/Vol] 4.4 mmol/L 3.5-5.1 [facility] Sodium [Moles/Vol] 130 mmol/L 136-[address] [facility] WBC (Bld) [#/Vol] 9.0 10*3/uL 4.4-11.[address] [facility] Bilirubin Test strip Ql (U)O rdered By: Dr. Hill on 01-07-2023 Bilirubin Ql (U) Negative Negative [facility] Blood erythrocytes count (nu mber/volume)Ordered By: Dr. Hill on 01-07-2023 RBC (Bld) [#/Vol] 5.46 10*6/uL 4.2-5.4 [facility] Blood hemoglobin measurement (mass/volume)Ordered By: Dr. Hill on 01-07-2023 Hemoglobin (Bld) [Mass/Vol] 14.1 g/dL 12.0-15.0 [facility] Blood lymphocytes/100 leukoc ytesOrdered By: Dr. Hill on 01-07-2023 Lymphocytes/100 WBC (Bld) 31.0 % 19-41 [facility] Blood monocytes/100 leukocyt esOrdered By: Dr. Hill on 01-07-2023 Monocytes/100 WBC (Bld) 4.8 % 0-10 [facility] Blood platelet mean volumeOr dered By: Dr. Hill on 01-07-2023 Platelet mean volume (Bld) [Entitic vol] 9.9 fL 6.2-12.0 [facility] Determination of erythrocyte mean corpuscular volume (MCV)Ordered By: Dr. Hill on 01-07-2023 MCV (RBC) [Entitic vol] 81.7 fL 81-99 [facility] Glucose Glucometer (BldC) [M ass/Vol]Ordered By: Dr. Hill on 01-07-2023 Glucose [Mass/Vol] 372 mg/dL 74-[address] [facility] Comment on above: MANAGEMENT OF PATIEN T CARE PER NURSING PROTOCOL HCO3 (BldA) [Moles/Vol]Order ed By: Dr. Hill on 01-07-2023 HCO3 (Bld) [Moles/Vol] 32 mmol/L 22- [facility] Hematocrit Auto (Bld) [Volum e fraction]Ordered By: Dr. Hill on 01-07-2023 Hematocrit (Bld) [Volume fraction] 44.6 % 37-47 [facility] Ketones Test strip Ql (U)Ord ered By: Dr. Hill on 01-07-2023 Ketones Ql (U) Negative Negative [facility] Laboratory - Chemistry and C hemistry - challengeOrdered By: Dr. Hill on 01-07-2023 CO2 [Moles/Vol] 34 mmol/L 23-33 [facility] CO2 [Moles/Vol] 30.0 mmol/L 21.0-32.0 [facility] Urea nitrogen/Creatinine [Mass ratio] 13.3 mg/mg 10-20 [facility] - Hematology and Cell countsOrdered By: Dr. Hill on 01-07-2023 Erythrocyte distribution width (RBC) [Entitic vol] 43.7 fL 35.1-43.9 [facility] Erythrocyte distribution width (RBC) [Ratio] 14.9 % 11.6-14.6 [facility] Immature granulocytes/100 WBC (Bld) 1.300 % 0.0-0.9 [facility] Comment on above: IG% - Immature Granu locytes (promyelocytes, myelocytes and metamyelocytes) > 1% indicates that a LEFT SHIFT is Present. MCH (RBC) [Entitic mass] 25.8 pg 27.0-32.0 [facility] Nucleated RBC/100 WBC (Bld) [Ratio] 0 % 0-5 [facility] MCHC Auto (RBC) [Mass/Vol]Or dered By: Dr. Hill on 01-07-2023 MCHC (RBC) [Mass/Vol] 31.6 g/dL 32-36 [facility] Mucus LM Ql (Urine sed)Order ed By: Dr. Hill on 01-07-2023 Mucus Ql (Urine sed) 0 SEEN /hpf [facility] Nitrite Test strip Ql (U)Ord ered By: Dr. Hill on 01-07-2023 Nitrite Ql (U) Negative Negative [facility] No Panel InformationOrdered By: Dr. Hill on 01-07-2023 Bed Mix Venous Bld PCO2 at Pat Temp 56.7 mmHg 41-51 [facility] Blood Gas Specimen Type SATHYA [facility] Venous Blood Base Excess 7 mmol/L -1.0-3.5 [facility] Estimated Creatinine Clearance Calc 48.37 ml/min [facility] Estimated GFR (MDRD) Amer 76 mL/min >60 [facility] Comment on above: GFR Calc Estimated GFR (MDRD) Non-Af Amer 63 mL/min >60 [facility] Comment on above: Non- GFR Calc PO2 venousOrdered By: Dr. Kumar hood on 01-07-2023 Oxygen (BldV) [Partial pressure] 37 mm[Hg] 25-40 [facility] Platelets bldOrdered By: Dr. Hill on 01-07-2023 Platelets (Bld) [#/Vol] 235 10*3/uL 150-450 [facility] Protein Test strip Ql (U)Ord ered By: Dr. Hill on 01-07-2023 Protein Ql (U) 15 mg/dl Negative [facility] Serum or plasma acetone janie urement (mass/volume)Ordered By: Dr. Hill on 01-07-2023 Acetone [Mass/Vol] Negative NEG [facility] Serum or plasma calcium janie urement (mass/volume)Ordered By: Dr. Hill on 01-07-2023 Calcium [Mass/Vol] 9.6 mg/dL 8.5-10.[address] [facility] Serum or plasma creatinine m easurement (mass/volume)Ordered By: Dr. Hill on 01-07-2023 Creatinine [Mass/Vol] 0.98 mg/dL 0.55-1.02 [facility] Comment on above: The validity of the calculated GFR & GFRAA in patients over 70 years has not been determined. Clinical correlation is essential. Serum or plasma urea nitroge n measurement (mass/volume)Ordered By: Dr. Hill on 01-07-2023 Urea nitrogen [Mass/Vol] 13 mg/dL 7-18 [facility] Squamous epithelial cells de tection in urine sediment by light microscopyOrdered By: Dr. Hill on 01-07-2023 Epithelial cells.squamous LM Ql (Urine sed) 0-5 SEEN /hpf 5-10 [facility] Thin prep Papanicolaou smear with manual screeningOrdered By: Dr. Hill on 01-07-2023 Thin prep Papanicolaou smear with manual screening 5 5-15 [facility] Urine blood detectionOrdered By: Dr. Hill on 01-07-2023 RBC Ql (U) 50 /ul Negative [facility] RBC Ql (U) 0-5 SEEN /hpf 0-5 [facility] Urine clarityOrdered By: Dr. Hill on 01-07-2023 Clarity (U) Sl. Cloudy Clear [facility] Urine color determinationOrd ered By: Dr. Hill on 01-07-2023 Color (U) Yellow Yellow [facility] Urine glucose detectionOrder ed By: Dr. Hill on 01-07-2023 Glucose Ql (U) 1000 mg/dl Normal [facility] Urine leukocyte esterase det ection by dipstickOrdered By: Dr. Hill on 01-07-2023 Leukocyte esterase Test strip Ql (U) 25 /ul Negative [facility] Urine pHOrdered By: Dr. Danny fall on 01-07-2023 pH (U) 7.0 [pH] 5.0 - 8.0 [facility] Urine sediment bacteria coun t by microscopy (number/high power field)Ordered By: Dr. Hill on 01-07-2023 Bacteria LM.HPF (Urine sed) [#/Area] 0 /[HPF] None Seen [facility] Urine specific gravity measu rementOrdered By: Dr. Hill on 01-07-2023 Specific gravity (U) [Rel density] 1.010 1.002-1.030 [facility] Urobilinogen Auto test strip Ql (U)Ordered By: Dr. Hill on 01-07-2023 Urobilinogen Ql (U) Normal mg/dl Normal [facility] Vital signsOrdered By: Dr. Tosha florez on 01-07-2023 Oxygen saturation in Blood 66 % 50-70 [facility] pH measurementOrdered By: Dr Catie Hill on 01-07-2023 pH (Unsp spec) 7.36 [pH] 7.32-7.42 [facility] Absolute lymphocyte countOrd ered By: Dr. Hernandez on 10-25-2022 Lymphocytes Auto (Unsp spec) [#/Vol] 2.24 10*3/uL 0.83-4.51 [facility] Basophil percentageOrdered B y: Dr. Hernandez on 10-25-2022 Basophils/100 WBC (Bld) 0.7 % 0-1 [facility] Chloride [Moles/Vol] 98 mmol/L 98-107 [facility] Eosinophils/100 WBC (Bld) 2.1 % 0-5 [facility] Glucose [Mass/Vol] 366 mg/dL 74-[address] [facility] Comment on above: Glucose result great er than or equal to 200 mg/dLsuggests DIABETES MELLITUS per A.D.A. criteria. Neutrophils (Bld) [#/Vol] 4.4 10*3/uL 2.0-7.7 [facility] Neutrophils/100 WBC (Bld) 60.3 % 47-70 [facility] Potassium [Moles/Vol] 4.2 mmol/L 3.5-5.1 [facility] Sodium [Moles/Vol] 132 mmol/L 136-[address] [facility] WBC (Bld) [#/Vol] 7.3 10*3/uL 4.4-11.[address] [facility] Blood erythrocytes count (nu mber/volume)Ordered By: Dr. Hrenandez on 10-25-2022 RBC (Bld) [#/Vol] 4.69 10*6/uL 4.2-5.4 [facility] Blood hemoglobin measurement (mass/volume)Ordered By: Dr. Hernandez on 10-25-2022 Hemoglobin (Bld) [Mass/Vol] 12.1 g/dL 12.0-15.0 [facility] Blood lymphocytes/100 leukoc ytesOrdered By: Dr. Hernandez on 10-25-2022 Lymphocytes/100 WBC (Bld) 30.7 % 19-41 [facility] Blood monocytes/100 leukocyt esOrdered By: Dr. Hernandez on 10-25-2022 Monocytes/100 WBC (Bld) 5.2 % 0-10 [facility] Blood platelet mean volumeOr dered By: Dr. Hernandez on 10-25-2022 Platelet mean volume (Bld) [Entitic vol] 9.8 fL 6.2-12.0 [facility] Determination of erythrocyte mean corpuscular volume (MCV)Ordered By: Dr. Hernandez on 10-25-2022 MCV (RBC) [Entitic vol] 80.8 fL 81-99 [facility] Hematocrit Auto (Bld) [Volum e fraction]Ordered By: Dr. Hernandez on 10-25-2022 Hematocrit (Bld) [Volume fraction] 37.9 % 37-47 [facility] - Chemistry and C hemistry - challengeOrdered By: Dr. Hernandez on 10-25-2022 CO2 [Moles/Vol] 30.0 mmol/L 21.0-32.0 [facility] Free T4 [Mass/Vol] 1.22 ng/dL 0.76-1.[address] [facility] Natriuretic peptide B (Bld) [Mass/Vol] 10.6 pg/mL 0-100 [facility] Urea nitrogen/Creatinine [Mass ratio] 22.8 mg/mg 10-20 [facility] - Hematology and Cell countsOrdered By: Dr. Hernandez on 10-25-2022 Erythrocyte distribution width (RBC) [Entitic vol] 45.1 fL 35.1-43.9 [facility] Erythrocyte distribution width (RBC) [Ratio] 15.5 % 11.6-14.6 [facility] Immature granulocytes/100 WBC (Bld) 1.000 % 0.0-0.9 [facility] Comment on above: IG% - Immature Granu locytes (promyelocytes, myelocytes and metamyelocytes) > 1% indicates that a LEFT SHIFT is Present. MCH (RBC) [Entitic mass] 25.8 pg 27.0-32.0 [facility] Nucleated RBC/100 WBC (Bld) [Ratio] 0 % 0-5 [facility] MCHC Auto (RBC) [Mass/Vol]Or dered By: Dr. Hernandez on 10-25-2022 MCHC (RBC) [Mass/Vol] 31.9 g/dL 32-36 [facility] No Panel InformationOrdered By: Dr. Hernandez on 10-25-2022 Estimated Creatinine Clearance Calc 57.10 ml/min [facility] Estimated GFR (MDRD) Amer 91 mL/min >60 [facility] Comment on above: GFR Calc Estimated GFR (MDRD) Non-Af Amer 75 mL/min >60 [facility] Comment on above: Non- GFR Calc Free Triiodothyronine (T3) pg/dL 2.7 pg/mL 2.18-3.98 [facility] Thyroid Stimulating Hormone (TSH) 0.34 uIU/mL 0.358-3.74 [facility] Troponin I High Sensitivity 37 pg/mL 3.0-54.0 [facility] Comment on above: Please Note: New [place]uv[place] t Units and Gender Specific Reference Ranges. For more information see Policy Stat Procedure [employer] High Sensitivity Troponin (TNIH) and attachments. Platelets bldOrdered By: Dr. Hernandez on 10-25-2022 Platelets (Bld) [#/Vol] 207 10*3/uL 150-450 [facility] Serum or plasma calcium janie urement (mass/volume)Ordered By: Dr. Hernandez on 10-25-2022 Calcium [Mass/Vol] 9.2 mg/dL 8.5-10.[address] [facility] Serum or plasma creatinine m easurement (mass/volume)Ordered By: Dr. Hernandez on 10-25-2022 Creatinine [Mass/Vol] 0.84 mg/dL 0.55-1.02 [facility] Comment on above: The validity of the calculated GFR & GFRAA in patients over 70 years has not been determined. Clinical correlation is essential. Serum or plasma urea nitroge n measurement (mass/volume)Ordered By: Dr. Hernandez on 10-25-2022 Urea nitrogen [Mass/Vol] 19 mg/dL 7-18 [facility] Thin prep Papanicolaou smear with manual screeningOrdered By: Dr. Hernandez on 10-25-2022 Thin prep Papanicolaou smear with manual screening 4 5-15 [facility] Culture, urineOrdered By: Dr Catie Rivera on 10-12-2022 Bacteria identified Cx Nom (U) Presumptive E. coli [facility] Basophil percentageOrdered B y: Dr. Rivera on 10-10-2022 Basophil percentage >100 SEEN /hpf 0-5 [facility] Comment on above: Microscopic field is filled. Other elements may be obscured. Bilirubin Test strip Ql (U)O rdered By: Dr. Rivera on 10-10-2022 Bilirubin Ql (U) Negative Negative [facility] Culture, urineOrdered By: Jeffery Rivera on 10-10-2022 Bacteria identified Cx Nom (U) Presumptive E. coli [facility] Ketones Test strip Ql (U)Ord ered By: Dr. Rivera on 10-10-2022 Ketones Ql (U) Negative Negative [facility] Mucus LM Ql (Urine sed)Order ed By: Dr. Rivera on 10-10-2022 Mucus Ql (Urine sed) 0 SEEN /hpf [facility] Nitrite Test strip Ql (U)Ord ered By: Dr. Rivera on 10-10-2022 Nitrite Ql (U) Positive Negative [facility] Protein Test strip Ql (U)Ord ered By: Dr. Rivera on 10-10-2022 Protein Ql (U) 100 mg/dl Negative [facility] Squamous epithelial cells de tection in urine sediment by light microscopyOrdered By: Dr. Rivera on 10-10-2022 Epithelial cells.squamous LM Ql (Urine sed) 0 SEEN /hpf 5-10 [facility] Urine blood detectionOrdered By: Dr. Rivera on 10-10-2022 RBC Ql (U) 150 /ul Negative [facility] RBC Ql (U) 25-50 SEEN /hpf 0-5 [facility] Urine clarityOrdered By: Dr. Rivera on 10-10-2022 Clarity (U) Turbid Clear [facility] Urine color determinationOrd ered By: Dr. Rivera on 10-10-2022 Color (U) Yellow Yellow [facility] Urine glucose detectionOrder ed By: Dr. Rivera on 10-10-2022 Glucose Ql (U) Normal mg/dl Normal [facility] Urine leukocyte esterase det ection by dipstickOrdered By: Dr. Rivera on 10-10-2022 Leukocyte esterase Test strip Ql (U) 500 /ul Negative [facility] Urine pHOrdered By: Dr. Joaquin lozada on 10-10-2022 pH (U) 6.5 [pH] 5.0 - 8.0 [facility] Urine sediment bacteria coun t by microscopy (number/high power field)Ordered By: Dr. Rivera on 10-10-2022 Bacteria LM.HPF (Urine sed) [#/Area] 4 /[HPF] None Seen [facility] Urine specific gravity measu rementOrdered By: Dr. Rivera on 10-10-2022 Specific gravity (U) [Rel density] 1.015 1.002-1.030 [facility] Urobilinogen Auto test strip Ql (U)Ordered By: Dr. Rivera on 10-10-2022 Urobilinogen Ql (U) Normal mg/dl Normal [facility] STREP A MOLECULAR (POC)on Procedural Control Valid [facility] Strep A (POCT) Negative Negative [facility] Absolute lymphocyte countOrd ered By: Dr. Hernandez on 09-21-2022 Lymphocytes Auto (Unsp spec) [#/Vol] 2.57 10*3/uL 0.83-4.51 [facility] Basophil percentageOrdered B y: Dr. Hernandez on 09-21-2022 Basophil percentage 25-50 SEEN /hpf 0-5 [facility] Basophils/100 WBC (Bld) 0.6 % 0-1 [facility] Chloride [Moles/Vol] 101 mmol/L 98-107 [facility] Eosinophils/100 WBC (Bld) 2.7 % 0-5 [facility] Glucose [Mass/Vol] 245 mg/dL 74-[address] [facility] Comment on above: Glucose result great er than or equal to 200 mg/dLsuggests DIABETES MELLITUS per A.D.A. criteria. Neutrophils (Bld) [#/Vol] 4.7 10*3/uL 2.0-7.7 [facility] Neutrophils/100 WBC (Bld) 58.1 % 47-70 [facility] Potassium [Moles/Vol] 4.0 mmol/L 3.5-5.1 [facility] Sodium [Moles/Vol] 138 mmol/L 136-[address] [facility] WBC (Bld) [#/Vol] 8.1 10*3/uL 4.4-11.[address] [facility] Bilirubin Test strip Ql (U)O rdered By: Dr. Hernandez on 09-21-2022 Bilirubin Ql (U) Negative Negative [facility] Blood erythrocytes count (nu mber/volume)Ordered By: Dr. Hernandez on 09-21-2022 RBC (Bld) [#/Vol] 4.40 10*6/uL 4.2-5.4 [facility] Blood hemoglobin measurement (mass/volume)Ordered By: Dr. Hernandez on 09-21-2022 Hemoglobin (Bld) [Mass/Vol] 10.8 g/dL 12.0-15.0 [facility] Blood lymphocytes/100 leukoc ytesOrdered By: Dr. Hernandez on 09-21-2022 Lymphocytes/100 WBC (Bld) 31.8 % 19-41 [facility] Blood monocytes/100 leukocyt esOrdered By: Dr. Hernandez on 09-21-2022 Monocytes/100 WBC (Bld) 5.2 % 0-10 [facility] Blood platelet mean volumeOr dered By: Dr. Hernandez on 09-21-2022 Platelet mean volume (Bld) [Entitic vol] 9.8 fL 6.2-12.0 [facility] Determination of erythrocyte mean corpuscular volume (MCV)Ordered By: Dr. Hernandez on 09-21-2022 MCV (RBC) [Entitic vol] 80.9 fL 81-99 [facility] Glucose Glucometer (BldC) [M ass/Vol]Ordered By: ED PROVIDER on 09-21-2022 Glucose [Mass/Vol] 235 mg/dL 74-[address] [facility] Comment on above: MANAGEMENT OF PATIEN T CARE PER NURSING PROTOCOL Hematocrit Auto (Bld) [Volum e fraction]Ordered By: Dr. Hernandez on 09-21-2022 Hematocrit (Bld) [Volume fraction] 35.6 % 37-47 [facility] Ketones Test strip Ql (U)Ord ered By: Dr. Hernandez on 09-21-2022 Ketones Ql (U) Negative Negative [facility] Laboratory - Chemistry and C hemistry - challengeOrdered By: Dr. Hernandez on 09-21-2022 CO2 [Moles/Vol] 32.0 mmol/L 21.0-32.0 [facility] Natriuretic peptide B (Bld) [Mass/Vol] 41.3 pg/mL 0-100 [facility] Urea nitrogen/Creatinine [Mass ratio] 21.0 mg/mg 10-20 [facility] Laboratory - Hematology and Cell countsOrdered By: Dr. Hernandez on 09-21-2022 Erythrocyte distribution width (RBC) [Entitic vol] 42.4 fL 35.1-43.9 [facility] Erythrocyte distribution width (RBC) [Ratio] 14.6 % 11.6-14.6 [facility] Immature granulocytes/100 WBC (Bld) 1.600 % 0.0-0.9 [facility] Comment on above: IG% - Immature Granu locytes (promyelocytes, myelocytes and metamyelocytes) > 1% indicates that a LEFT SHIFT is Present. MCH (RBC) [Entitic mass] 24.5 pg 27.0-32.0 [facility] Nucleated RBC/100 WBC (Bld) [Ratio] 0 % 0-5 [facility] MCHC Auto (RBC) [Mass/Vol]Or dered By: Dr. Hernandez on 09-21-2022 MCHC (RBC) [Mass/Vol] 30.3 g/dL 32-36 [facility] Mucus LM Ql (Urine sed)Order ed By: Dr. Hernandez on 09-21-2022 Mucus Ql (Urine sed) 1+ /hpf [facility] Nitrite Test strip Ql (U)Ord ered By: Dr. Hernandez on 09-21-2022 Nitrite Ql (U) Negative Negative [facility] No Panel InformationOrdered By: Dr. Hernandez on 09-21-2022 Estimated Creatinine Clearance Calc 71.59 ml/min [facility] Estimated GFR (MDRD) Amer 118 mL/min >60 [facility] Comment on above: GFR Calc Estimated GFR (MDRD) Non-Af Amer 97 mL/min >60 [facility] Comment on above: Non- GFR Calc Troponin I High Sensitivity 52 pg/mL 3.0-54.0 [facility] Comment on above: Please Note: New [place] t Units and Gender Specific Reference Ranges. For more information see Policy Stat Procedure Fitzpatrick High Sensitivity Troponin (TNIH) and attachments. Platelets bldOrdered By: Dr. Hernandez on 09-21-2022 Platelets (Bld) [#/Vol] 235 10*3/uL 150-450 [facility] Protein Test strip Ql (U)Ord ered By: Dr. Hernandez on 09-21-2022 Protein Ql (U) 30 mg/dl Negative [facility] Serum or plasma calcium janie urement (mass/volume)Ordered By: Dr. Hernandez on 09-21-2022 Calcium [Mass/Vol] 8.8 mg/dL 8.5-10.[address] [facility] Serum or plasma creatinine m easurement (mass/volume)Ordered By: Dr. Hernandez on 09-21-2022 Creatinine [Mass/Vol] 0.67 mg/dL 0.55-1.02 [facility] Comment on above: The validity of the calculated GFR & GFRAA in patients over 70 years has not been determined. Clinical correlation is essential. Serum or plasma urea nitroge n measurement (mass/volume)Ordered By: Dr. Hernandez on 09-21-2022 Urea nitrogen [Mass/Vol] 14 mg/dL 7-18 [facility] Squamous epithelial cells de tection in urine sediment by light microscopyOrdered By: Dr. Hernandez on 09-21-2022 Epithelial cells.squamous LM Ql (Urine sed) 10-25 SEEN /hpf 5-10 [facility] Thin prep Papanicolaou smear with manual screeningOrdered By: Dr. Hernandez on 09-21-2022 Thin prep Papanicolaou smear with manual screening 5 5-15 [facility] Urine blood detectionOrdered By: Dr. Hernandez on 09-21-2022 RBC Ql (U) 250 /ul Negative [facility] RBC Ql (U) 5-10 SEEN /hpf 0-5 [facility] Urine clarityOrdered By: Dr. Hernandez on 09-21-2022 Clarity (U) Cloudy Clear [facility] Urine color determinationOrd ered By: Dr. Hernandez on 09-21-2022 Color (U) Yellow Yellow [facility] Urine glucose detectionOrder ed By: Dr. Hernandez on 09-21-2022 Glucose Ql (U) Normal mg/dl Normal [facility] Urine leukocyte esterase det ection by dipstickOrdered By: Dr. Hernandez on 09-21-2022 Leukocyte esterase Test strip Ql (U) 500 /ul Negative [facility] Urine pHOrdered By: Dr. Navin monte on 09-21-2022 pH (U) 5.0 [pH] 5.0 - 8.0 [facility] Urine sediment bacteria coun t by microscopy (number/high power field)Ordered By: Dr. Hernandez on 09-21-2022 Bacteria LM.HPF (Urine sed) [#/Area] 0 /[HPF] None Seen [facility] Urine specific gravity measu rementOrdered By: Dr. Hernandez on 09-21-2022 Specific gravity (U) [Rel density] 1.020 1.002-1.030 [facility] Urobilinogen Auto test strip Ql (U)Ordered By: Dr. Hernandez on 09-21-2022 Urobilinogen Ql (U) Normal mg/dl Normal [facility] UA DIP, URINE (POC)on 2022 BILIRUBIN UA (POCT) Negative Negative [facility] CLARITY UA (POCT) Slightly Cloudy [facility] COLOR UA (POCT) Light yellow [facility] GLUCOSE UA (POCT) Negative Negative mg/dL [facility] HEMOGLOBIN/BLOOD UA (POCT) Large Abnormal Negative [facility] KETONE UA (POCT) Negative Negative mg/dL [facility] LEUKOCYTES UA (POCT) Small Abnormal Negative [facility] NITRITE UA (POCT) Positive Abnormal Negative [facility] PH UA (POCT) 6.0 4.5 - 8.0 [facility] Protein Ql (U) 100 mg/dL Abnormal Negative mg/dL [facility] SPECIFIC GRAVITY UA (POCT) >=1.030 1.005 - 1.030 [facility] UROBILINOGEN UA (POCT) 1.0 E.U./dL Normal E.U./dL [facility] XR Hand - right PA and Later al and Obliqueon 06-15-2022 IMPRESSION: Mild degenerative changes in the right hand as described above. No acute fracture seen. Manager Acquisition: PSCB Transcribe Date/Time: Jun 15 2022 3:49P Dictated by : LINN DARDEN MD This examination was interpreted and the report reviewed and electronically signed by: LINN DARDEN MD on Jun 15 2022 4:00PM [facility] DIVISION OF RADIOLOGY * * *Final [...] soft tissue swelling. DIVISION OF RADIOLOGY Provider, [facility] - 06/15/2022 * * *Final Report* * [...] as described above. No acute fracture seen. Manager Acquisition: KARIN Transcribe Date/Time: Jun 15 2022 3:49P Dictated by : LINN DARDEN MD This examination was interpreted and the report reviewed and electronically signed by: LINN DARDEN MD on Jun 15 2022 4:00PM EST [facility] Radiology Study observation (narrative) [facility] XR Hand - right PA and Later al and ObliqueOrdered By: [facility] Provider on 06-15-2022 [facility] GLUCOSE, BLOOD (POC)on 02-16 Glucose [Mass/Vol] 240 mg/dL Abnormal 74 - 99 mg/dL [facility] Absolute lymphocyte counton 02-11-2022 Lymphocytes Auto (Unsp spec) [#/Vol] 3.04 10*3/uL 0.83-4.51 [facility] Work Phone: Basophil percentageon 2021 Basophils/100 WBC (Bld) 0.8 % 0-1 [facility] Work Phone: Chloride [Moles/Vol] 103 mmol/L 98-107 [facility] Work Phone: Eosinophils/100 WBC (Bld) 2.4 % 0-5 [facility] Work Phone: Glucose [Mass/Vol] 261 mg/dL 74-[address] [facility] Work Phone: Comment on above: Glucose result great er than or equal to 200 mg/dLsuggests DIABETES MELLITUS per A.D.A. criteria. Neutrophils (Bld) [#/Vol] 3.9 10*3/uL 2.0-7.7 [facility] Work Phone: Neutrophils/100 WBC (Bld) 49.5 % 47-70 [facility] Work Phone: Potassium [Moles/Vol] 4.0 mmol/L 3.5-5.1 [facility] Work Phone: Sodium [Moles/Vol] 135 mmol/L 136-[address] [facility] Work Phone: WBC (Bld) [#/Vol] 7.8 10*3/uL 4.4-11.[address] [facility] Work Phone: Blood erythrocytes count (nu mber/volume)on 02-11-2022 RBC (Bld) [#/Vol] 4.70 10*6/uL 4.2-5.4 [facility] Work Phone: Blood hemoglobin measurement (mass/volume)on 02-11-2022 Hemoglobin (Bld) [Mass/Vol] 11.3 g/dL 12.0-15.0 [facility] Work Phone: Blood lymphocytes/100 leukoc yteson 02-11-2022 Lymphocytes/100 WBC (Bld) 39.1 % 19-41 [facility] Work Phone: Blood monocytes/100 leukocyt eson 02-11-2022 Monocytes/100 WBC (Bld) 6.0 % 0-10 [facility] Work Phone: Blood platelet mean volumeon 02-11-2022 Platelet mean volume (Bld) [Entitic vol] 10.1 fL 6.2-12.0 [facility] Work Phone: Determination of erythrocyte mean corpuscular volume (MCV)on 02-11-2022 MCV (RBC) [Entitic vol] 80.0 fL 81-99 [facility] Work Phone: Glucose Glucometer (BldC) [M ass/Vol]on 02-11-2022 Glucose [Mass/Vol] 350 mg/dL 74-[address] [facility] Work Phone: Comment on above: MANAGEMENT OF PATIEN T CARE PER NURSING PROTOCOL Hematocrit Auto (Bld) [Volum e fraction]on 02-11-2022 Hematocrit (Bld) [Volume fraction] 37.6 % 37-47 [facility] Work Phone: Laboratory - Chemistry and C hemistry - challengeon 02-11-2022 CO2 [Moles/Vol] 27.0 mmol/L 21.0-32.0 [facility] Work Phone: Urea nitrogen/Creatinine [Mass ratio] 20.3 mg/mg 10-20 [facility] Work Phone: Laboratory - Hematology and Cell countson 02-11-2022 Erythrocyte distribution width (RBC) [Entitic vol] 46.0 fL 35.1-43.9 [facility] Work Phone: Erythrocyte distribution width (RBC) [Ratio] 16.3 % 11.6-14.6 [facility] Work Phone: Immature granulocytes/100 WBC (Bld) 2.200 % 0.0-0.9 [facility] Work Phone: Comment on above: IG% - Immature Granu locytes (promyelocytes, myelocytes and metamyelocytes) > 1% indicates that a LEFT SHIFT is Present. MCH (RBC) [Entitic mass] 24.0 pg 27.0-32.0 [facility] Work Phone: Nucleated RBC/100 WBC (Bld) [Ratio] 0 % 0-5 [facility] Work Phone: MCHC Auto (RBC) [Mass/Vol]on 02-11-2022 MCHC (RBC) [Mass/Vol] 30.1 g/dL 32-36 [facility] Work Phone: No Panel Informationon 02-11 Estimated Creatinine Clearance Calc 88.83 ml/min [facility] Work Phone: Estimated GFR (MDRD) Amer 150 mL/min >60 [facility] Work Phone: Comment on above: GFR Calc Estimated GFR (MDRD) Non-Af Amer 124 mL/min >60 [facility] Work Phone: Comment on above: Non- GFR Calc Platelets bldon 02-11-2022 Platelets (Bld) [#/Vol] 227 10*3/uL 150-450 [facility] Work Phone: Serum or plasma calcium janie urement (mass/volume)on 02-11-2022 Calcium [Mass/Vol] 8.6 mg/dL 8.5-10.[address] [facility] Work Phone: Serum or plasma creatinine m easurement (mass/volume)on 02-11-2022 Creatinine [Mass/Vol] 0.54 mg/dL 0.55-1.02 [facility] Work Phone: Comment on above: The validity of the calculated GFR & GFRAA in patients over 70 years has not been determined. Clinical correlation is essential. Serum or plasma urea nitroge n measurement (mass/volume)on 02-11-2022 Urea nitrogen [Mass/Vol] 11 mg/dL 7-18 [facility] Work Phone: Thin prep Papanicolaou smear with manual screeningon 02-11-2022 Thin prep Papanicolaou smear with manual screening 5 5-15 [facility] Work Phone: Basophil percentageon 2021 Bilirubin [Mass/Vol] 0.40 mg/dL 0.20-1.00 [facility] Work Phone: Comment on above: For patients on eltr ombopag therapy, use of Dimension Fitzpatrick TBIL is not recommended. Protein [Mass/Vol] 7.8 g/dL 6.4-8.[address] [facility] Work Phone: Laboratory - Chemistry and C hemistry - challengeon 02-10-2022 ALP [Catalytic activity/Vol] 164 U/L 45-117 [facility] Work Phone: ALT [Catalytic activity/Vol] 49 U/L 13-56 [facility] Work Phone: Globulin (S) [Mass/Vol] 5.2 g/dL 2.2-4.2 [facility] Work Phone: Serum or plasma albumin janie urement (mass/volume)on 02-10-2022 Albumin [Mass/Vol] 2.6 g/dL 3.2-5.[address] [facility] Work Phone: Serum or plasma albumin/glob ulin mass ratioon 02-10-2022 Albumin/Globulin [Mass ratio] 0.5 {ratio} 0.9-2.4 [facility] Work Phone: Thin prep Papanicolaou smear with manual screeningon 02-10-2022 Thin prep Papanicolaou smear with manual screening 56 U/L 15-37 [facility] Work Phone: Absolute lymphocyte counton 02-09-2022 Lymphocytes Auto (Unsp spec) [#/Vol] 2.68 10*3/uL 0.83-4.51 [facility] Work Phone: Amorphous sediment detection in urine sediment by light microscopyon 02-09-2022 Amorphous sediment LM Ql (Urine sed) 1+ URATE [facility] Work Phone: Assessment of wrist artery p atency prior to arterial punctureon 02-09-2022 Arterial patency Wrist artery --pre arterial puncture Positive [facility] Work Phone: Base excesson 02-09-2022 Base excess Calc (BldV) [Moles/Vol] 2 mmol/L -2-2 [facility] Work Phone: Basophil percentageon 2021 Lactate [Moles/Vol] 1.0 mmol/L 0.4-2.0 [facility] Work Phone: Basophil percentage 26.6 mmol/L 22-26 [facility] Work Phone: Basophils/100 WBC (Bld) 96 % 95-99 [facility] Work Phone: Basophil percentage 50-100 SEEN /hpf 0-5 [facility] Work Phone: Basophils/100 WBC (Bld) 0.7 % 0-1 [facility] Work Phone: Bilirubin [Mass/Vol] 0.50 mg/dL 0.20-1.00 [facility] Work Phone: Comment on above: For patients on eltr ombopag therapy, use of Dimension Fitzpatrick TBIL is not recommended. Chloride [Moles/Vol] 91 mmol/L 98-107 [facility] Work Phone: Eosinophils/100 WBC (Bld) 1.7 % 0-5 [facility] Work Phone: Glucose [Mass/Vol] 629 mg/dL 74-[address] [facility] Work Phone: Comment on above: Glucose result great er than or equal to 200 mg/dLsuggests DIABETES MELLITUS per A.D.A. criteria. Lactate [Moles/Vol] 2.3 mmol/L 0.4-2.0 [facility] Work Phone: Comment on above: Critical Result(s) C alled at: 19:11:23 02/09/2022 by: JOSEF HERNANDEZ. TO [facility] [employer] Results read back by same. Neutrophils (Bld) [#/Vol] 5.5 10*3/uL 2.0-7.7 [facility] Work Phone: Neutrophils/100 WBC (Bld) 61.2 % 47-70 [facility] Work Phone: Potassium [Moles/Vol] 5.0 mmol/L 3.5-5.1 [facility] Work Phone: Comment on above: Moderate Hemolysis, Result may be falsely increased. Protein [Mass/Vol] 8.8 g/dL 6.4-8.[address] [facility] Work Phone: [phone] Sodium [Moles/Vol] 125 mmol/L 136-[address] [facility] Work Phone: Comment on above: Critical Result(s) C alled at: 19:13:42 02/09/2022 by: JOSEF HERNANDEZ TO [facility] [employer]. Results read back by same. WBC (Bld) [#/Vol] 9.0 10*3/uL 4.4-11.[address] [facility] Work Phone: Bilirubin Test strip Ql (U)o n 02-09-2022 Bilirubin Ql (U) Negative Negative [facility] Work Phone: Blood erythrocytes count (nu mber/volume)on 02-09-2022 RBC (Bld) [#/Vol] 4.94 10*6/uL 4.2-5.4 [facility] Work Phone: Blood hemoglobin measurement (mass/volume)on 02-09-2022 Hemoglobin (Bld) [Mass/Vol] 11.8 g/dL 12.0-15.0 [facility] Work Phone: Blood lymphocytes/100 leukoc yteson 02-09-2022 Lymphocytes/100 WBC (Bld) 29.7 % 19-41 [facility] Work Phone: Blood monocytes/100 leukocyt eson 02-09-2022 Monocytes/100 WBC (Bld) 4.9 % 0-10 [facility] Work Phone: Blood platelet mean volumeon 02-09-2022 Platelet mean volume (Bld) [Entitic vol] 10.3 fL 6.2-12.0 [facility] Work Phone: CO2 (BldA) [Partial pressure ]on 02-09-2022 CO2 (Bld) [Partial pressure] 45.2 mm[Hg] 35-45 [facility] Work Phone: Determination of erythrocyte mean corpuscular volume (MCV)on 02-09-2022 MCV (RBC) [Entitic vol] 76.9 fL 81-99 [facility] Work Phone: Glucose Glucometer (BldC) [M ass/Vol]on 02-09-2022 Glucose [Mass/Vol] mg/dL 74-[address] [facility] Work Phone: Comment on above: Dr Winnie Sebastian NAGEMENT OF PATIENT CARE PER NURSING PROTOCOL Hematocrit Auto (Bld) [Volum e fraction]on 02-09-2022 Hematocrit (Bld) [Volume fraction] 38.0 % 37-47 [facility] Work Phone: Ketones Test strip Ql (U)on 02-09-2022 Ketones Ql (U) Negative Negative [facility] Work Phone: Laboratory - Chemistry and C hemistry - challengeon 02-09-2022 ALP [Catalytic activity/Vol] 210 U/L 45-117 [facility] Work Phone: ALT [Catalytic activity/Vol] 56 U/L 13-56 [facility] Work Phone: CO2 [Moles/Vol] 27.0 mmol/L 21.0-32.0 [facility] Work Phone: Free T4 [Mass/Vol] 0.50 ng/dL 0.76-1.46 [facility] Work Phone: Globulin (S) [Mass/Vol] 5.9 g/dL 2.2-4.2 [facility] Work Phone: HCG ( test) Ql (U) Negative [facility] Work Phone: Comment on above: Very dilute urine sp ecimens, as indicated by a low specificgravity, may not contain client service representative levels of hCG. If is still suspected, a first morning urinespecimen should be collected 48 hours later and tested. Lipase [Catalytic activity/Vol] 96 U/L 73-393 [facility] Work Phone: Urea nitrogen/Creatinine [Mass ratio] 13.3 mg/mg 10-20 [facility] Work Phone: Laboratory - Hematology and Cell countson 02-09-2022 Erythrocyte distribution width (RBC) [Entitic vol] 44.8 fL 35.1-43.9 [facility] Work Phone: Erythrocyte distribution width (RBC) [Ratio] 16.3 % 11.6-14.6 [facility] Work Phone: Immature granulocytes/100 WBC (Bld) 1.800 % 0.0-0.9 [facility] Work Phone: Comment on above: IG% - Immature Granu locytes (promyelocytes, myelocytes and metamyelocytes) > 1% indicates that a LEFT SHIFT is Present. MCH (RBC) [Entitic mass] 23.9 pg 27.0-32.0 [facility] Work Phone: Nucleated RBC/100 WBC (Bld) [Ratio] 0 % 0-5 [facility] Work Phone: MCHC Auto (RBC) [Mass/Vol]on 02-09-2022 MCHC (RBC) [Mass/Vol] 31.1 g/dL 32-36 [facility] Work Phone: Mucus LM Ql (Urine sed)on Mucus Ql (Urine sed) 0 SEEN /hpf [facility] Work Phone: Nitrite Test strip Ql (U)on 02-09-2022 Nitrite Ql (U) Positive Negative [facility] Work Phone: No Panel Informationon 02-09 Blood Gas Sample Site L Radial [facility] Work Phone: Blood Gas Specimen Type ART [facility] Work Phone: Blood Gas Total CO2 28 mmol/L [facility] Work Phone: Oxygen Delivery Device Room Air [facility] Work Phone: Estimated Creatinine Clearance Calc 45.68 ml/min [facility] Work Phone: Estimated GFR (MDRD) Amer 70 mL/min >60 [facility] Work Phone: Comment on above: GFR Calc Estimated GFR (MDRD) Non-Af Amer 58 mL/min >60 [facility] Work Phone: Comment on above: Non- GFR Calc Free Triiodothyronine (T3) pg/dL 1.7 pg/mL 2.18-3.98 [facility] Work Phone: Thyroid Stimulating Hormone (TSH) 53.20 uIU/mL 0.358-3.74 [facility] Work Phone: Oxygen (BldA) [Partial press ure]on 02-09-2022 Oxygen (Bld) [Partial pressure] 81 mmHG 75-100 [facility] Work Phone: Platelets bldon 02-09-2022 Platelets (Bld) [#/Vol] 271 10*3/uL 150-450 [facility] Work Phone: Protein Test strip Ql (U)on 02-09-2022 Protein Ql (U) 15 mg/dl Negative [facility] Work Phone: Serum or plasma acetone janie urement (mass/volume)on 02-09-2022 Acetone [Mass/Vol] Negative NEG [facility] Work Phone: Serum or plasma albumin janie urement (mass/volume)on 02-09-2022 Albumin [Mass/Vol] 2.9 g/dL 3.2-5.[address] [facility] Work Phone: Serum or plasma albumin/glob ulin mass ratioon 02-09-2022 Albumin/Globulin [Mass ratio] 0.5 {ratio} 0.9-2.4 [facility] Work Phone: Serum or plasma calcium janie urement (mass/volume)on 02-09-2022 Calcium [Mass/Vol] 9.7 mg/dL 8.5-10.[address] [facility] Work Phone: Serum or plasma creatinine m easurement (mass/volume)on 02-09-2022 Creatinine [Mass/Vol] 1.05 mg/dL 0.55-1.02 [facility] Work Phone: Comment on above: The validity of the calculated GFR & GFRAA in patients over 70 years has not been determined. Clinical correlation is essential. Serum or plasma urea nitroge n measurement (mass/volume)on 02-09-2022 Urea nitrogen [Mass/Vol] 14 mg/dL 7-18 [facility] Work Phone: Squamous epithelial cells de tection in urine sediment by light microscopyon 02-09-2022 Epithelial cells.squamous LM Ql (Urine sed) 0-5 SEEN /hpf 5-10 [facility] Work Phone: Thin prep Papanicolaou smear with manual screeningon 02-09-2022 Thin prep Papanicolaou smear with manual screening 70 U/L 15-37 [facility] Work Phone: Comment on above: Moderate Hemolysis, Result may be falsely increased. Thin prep Papanicolaou smear with manual screening 7 5-15 [facility] Work Phone: Thin prep Papanicolaou smear with manual screening 301 mOsm/KG 275-295 [facility] Work Phone: Urine blood detectionon 01-20 RBC Ql (U) 150 /ul Negative [facility] Work Phone: RBC Ql (U) 25-50 SEEN /hpf 0-5 [facility] Work Phone: Urine clarityon 02-09-2022 Clarity (U) Cloudy Clear [facility] Work Phone: Urine color determinationon 02-09-2022 Color (U) Yellow Yellow [facility] Work Phone: Urine glucose detectionon Glucose Ql (U) 1000 mg/dl Normal [facility] Work Phone: Urine leukocyte esterase det ection by dipstickon 02-09-2022 Leukocyte esterase Test strip Ql (U) 500 /ul Negative [facility] Work Phone: Urine pHon 02-09-2022 pH (U) 6.0 [pH] 5.0 - 8.0 [facility] Work Phone: Urine sediment bacteria coun t by microscopy (number/high power field)on 02-09-2022 Bacteria LM.HPF (Urine sed) [#/Area] 2 /[HPF] None Seen [facility] Work Phone: Urine specific gravity measu rementon 02-09-2022 Specific gravity (U) [Rel density] 1.010 1.002-1.030 [facility] Work Phone: Urobilinogen Auto test strip Ql (U)on 02-09-2022 Urobilinogen Ql (U) Normal mg/dl Normal [facility] Work Phone: pH measurementon 02-09-2022 pH (Unsp spec) 7.38 [pH] 7.35-7.45 [facility] Work Phone: HGB A1Con 11-10-2021 Average glucose Estimated from glycated hemoglobin (Bld) [Mass/Vol] 260 mg/dL [facility] HbA1c (Bld) [Mass fraction] 10.7 % High 4.3 - 5.6 % [facility] Basic metabolic 2000 panelon 11-09-2021 Anion gap [Moles/Vol] 9 mmol/L 9 - 18 mmol/L [facility] Calcium [Mass/Vol] 9.5 mg/dL 8.5 - 10. 2 mg/dL [facility] Chloride [Moles/Vol] 98 mmol/L 97 - 10 5 mmol/L [facility] CO2 [Moles/Vol] 27 mmol/L 22 - 30 mmol/L [facility] Creatinine [Mass/Vol] 0.49 mg/dL Low 0.58 - 0.96 mg/dL [facility] Estimated Glomerular Filtration Rate 112 mL/min/1.73m >=60 mL/min/1.73m [facility] Glucose [Mass/Vol] 244 mg/dL High 74 - 99 mg/dL [facility] Potassium [Moles/Vol] 4.6 mmol/L 3.7 - 5.1 mmol/L [facility] Sodium [Moles/Vol] 134 mmol/L Low 136 - 144 mmol/L [facility] Urea nitrogen [Mass/Vol] 14 mg/dL 7 - 21 mg/dL [facility] XR HAND GENERAL 3V PA/LAT/OB L LEFTon 10-16-2021 [facility] Hand - left PA and Latera l and Obliqueon 10-16-2021 IMPRESSION: Findings as described above. Manager Acquisition: PSCB Transcribe Date/Time: Oct 16 2021 11:48A Dictated by : LINN DARDEN MD This examination was interpreted and the report reviewed and electronically signed by: LINN DARDEN MD on Oct 16 2021 11:53AM [facility] DIVISION OF RADIOLOGY * * *Final [...] soft tissue swelling. DIVISION OF RADIOLOGY Provider, [facility] - 10/16/2021 * * *Final Report* * [...] swelling. IMPRESSION IMPRESSION: Findings as described above. Manager Acquisition: [facility] Transcribe Date/Time: Oct 16 2021 11:48A Dictated by : LINN DARDEN MD This examination was interpreted and the report reviewed and electronically signed by: LINN DARDEN MD on Oct 16 2021 11:53AM EST [facility] Radiology Study observation (narrative) [facility] XR Hand - left PA and Latera l and ObliqueOrdered By: [facility] Provider on 10-16-2021 [facility] Culture, urine Bacteria identified Cx Nom (U) Escherichia coli [facility] Work Phone: Laboratory - Microbiology an d Antimicrobial susceptibility Bacteria identified Cx Nom (Bld) No growth in 5 days. [facility] Work Phone: No Panel Information [facility] Vital Signs Date Time Vital Sign Value Performing Clinician Facility 12-30-2024 10:43-0400 Body temperature 98.2 [degF] [employer] Work Phone: [facility] 12-30-2024 10:43-0400 Diastolic blood pressure 70 mm[Hg] [employer] Work Phone: [facility] 12-30-2024 10:43-0400 Heart rate 92 /min [employer] Work Phone: [facility] 12-30-2024 10:43-0400 Respiratory rate 16 /min [employer] Work Phone: [facility] 12-30-2024 10:43-0400 SaO2% (BldA) [Mass fraction] 99 % [employer] Work Phone: [facility] 12-30-2024 10:43-0400 Systolic blood pressure 128 mm[Hg] [employer] Work Phone: [facility] 11-03-2024 23:17-0400 Body temperature 97.3 [degF] [employer] Work Phone: [facility] 11-03-2024 23:17-0400 Diastolic blood pressure 85 mm[Hg] [employer] Work Phone: [facility] 11-03-2024 23:17-0400 Heart rate 98 /min [employer] Work Phone: [facility] 11-03-2024 23:17-0400 Respiratory rate 18 /min [employer] Work Phone: [facility] 11-03-2024 23:17-0400 SaO2% (BldA) [Mass fraction] 97 % [employer] Work Phone: [facility] 11-03-2024 23:17-0400 Systolic blood pressure 106 mm[Hg] [employer] Work Phone: [facility] 11-03-2024 21:01-0400 Body height 154.94 cm [employer] Work Phone: [facility] 11-03-2024 21:01-0400 Body mass index (BMI) [Ratio] 46.3 kg/m2 [employer] Work Phone: [facility] 11-03-2024 21:01-0400 Body weight 111.2 kg [employer] Work Phone: [facility] 10-30-2024 09:22-0400 Body mass index (BMI) [Ratio] 44.6 kg/m2 [employer] Work Phone: [facility] 10-30-2024 09:22-0400 Body temperature 95.9 [degF] [employer] Work Phone: [facility] 10-30-2024 09:22-0400 Body weight 107.04 kg [employer] Work Phone: [facility] 10-30-2024 09:22-0400 Diastolic blood pressure 81 mm[Hg] [employer] Work Phone: [facility] 10-30-2024 09:22-0400 Heart rate 89 /min [employer] Work Phone: [facility] 10-30-2024 09:22-0400 Inhaled oxygen flow rate 2 L/min [employer] Work Phone: [facility] 10-30-2024 09:22-0400 Respiratory rate 20 /min [employer] Work Phone: [facility] 10-30-2024 09:22-0400 SaO2% (BldA) [Mass fraction] 99 % [employer] Work Phone: [facility] 10-30-2024 09:22-0400 Systolic blood pressure 147 mm[Hg] [employer] Work Phone: [facility] 10-06-2024 12:53-0400 Body height 154.94 cm [employer] Work Phone: [facility] 10-06-2024 12:53-0400 Body weight 108.86 kg [employer] Work Phone: [facility] 10-06-2024 12:53-0400 Heart rate 95 /min [employer] Work Phone: [facility] 10-06-2024 12:53-0400 SaO2% (BldA) [Mass fraction] 98 % [employer] Work Phone: [facility] 09-30-2024 02:03-0400 Body temperature 98 [degF] [employer] Work Phone: [facility] 09-30-2024 02:03-0400 Diastolic blood pressure 66 mm[Hg] [employer] Work Phone: [facility] 09-30-2024 02:03-0400 Heart rate 81 /min [employer] Work Phone: [facility] 09-30-2024 02:03-0400 Respiratory rate 18 /min [employer] Work Phone: [facility] 09-30-2024 02:03-0400 SaO2% (BldA) [Mass fraction] 97 % [employer] Work Phone: [facility] 09-30-2024 02:03-0400 Systolic blood pressure 121 mm[Hg] [employer] Work Phone: [facility] 09-30-2024 00:34-0400 Body height 154.94 cm [employer] Work Phone: [facility] 09-30-2024 00:34-0400 Body mass index (BMI) [Ratio] 43.2 kg/m2 [employer] Work Phone: [facility] 09-30-2024 00:34-0400 Body weight 103.7 kg [employer] Work Phone: [facility] 09-24-2024 13:08-0500 Body mass index (BMI) [Ratio] 45.3 kg/m2 [employer] Work Phone: [facility] 09-24-2024 13:08-0500 Body weight 108.86 kg [employer] Work Phone: [facility] 09-24-2024 13:08-0500 Diastolic blood pressure 84 mm[Hg] [employer] Work Phone: [facility] 09-24-2024 13:08-0500 Heart rate 88 /min [employer] Work Phone: [facility] 09-24-2024 13:08-0500 Inhaled oxygen flow rate 2 L/min [employer] Work Phone: [facility] 09-24-2024 13:08-0500 SaO2% (BldA) [Mass fraction] 95 % [employer] Work Phone: [facility] 09-24-2024 13:08-0500 Systolic blood pressure 135 mm[Hg] [employer] Work Phone: [facility] 09-04-2024 08:46-0500 Body mass index (BMI) [Ratio] 42.9 kg/m2 [employer] Work Phone: [facility] 09-04-2024 08:46-0500 Body temperature 97.4 [degF] [employer] Work Phone: [facility] 09-04-2024 08:46-0500 Body weight 102.96 kg [employer] Work Phone: [facility] 09-04-2024 08:46-0500 Diastolic blood pressure 83 mm[Hg] [employer] Work Phone: [facility] 09-04-2024 08:46-0500 Heart rate 102 /min [employer] Work Phone: [facility] 09-04-2024 08:46-0500 Inhaled oxygen flow rate 2 L/min [employer] Work Phone: [facility] 09-04-2024 08:46-0500 Respiratory rate 20 /min [employer] Work Phone: [facility] 09-04-2024 08:46-0500 SaO2% (BldA) [Mass fraction] 99 % [employer] Work Phone: [facility] 09-04-2024 08:46-0500 Systolic blood pressure 126 mm[Hg] [employer] Work Phone: [facility] 09-03-2024 14:30-0500 Diastolic blood pressure 72 mm[Hg] Blas Merrill MD Work Phone: [facility] 09-03-2024 14:30-0500 Heart rate 92 /min Blas Merrill MD Work Phone: [facility] 09-03-2024 14:30-0500 Respiratory rate 24 /min Blas Merrill MD Work Phone: [facility] 09-03-2024 14:30-0500 SaO2% (BldA) [Mass fraction] 97 % Blas Merrill MD Work Phone: [facility] 09-03-2024 14:30-0500 Systolic blood pressure 126 mm[Hg] Blas Merrill MD Work Phone: [facility] 09-03-2024 13:57-0500 Body temperature 98.01 [degF] Blas Merrill MD Work Phone: [facility] 09-03-2024 12:08-0500 Body height 154.9 cm Blas Merrill MD Work Phone: [facility] 08-27-2024 14:00-0500 Body height 154.9 cm Scott Berrios MD, MPH Work Phone: 1(314)280-838872 [place] [address] 08-27-2024 14:00-0500 Body mass index (BMI) [Ratio] 45.65 kg/m2 Scott Berrios MD, MPH Work Phone: 1(954)615-600772 [place] [address] 08-27-2024 14:00-0500 Body temperature 97.3 [degF] Scott Berrios MD, MPH Work Phone: 0(242)141-339472 [place] [address] 08-27-2024 14:00-0500 Body weight 109.54 kg Scott Berrios MD, MPH Work Phone: 3(693)808-383272 [place] [address] 08-27-2024 14:00-0500 Diastolic blood pressure 67 mm[Hg] Scott Berrios MD, MPH Work Phone: 7(078)116-019272 [place] [address] 08-27-2024 14:00-0500 Heart rate 106 /min Scott Berrios MD, MPH Work Phone: 8(469)995-109772 [place] [address] 08-27-2024 14:00-0500 Respiratory rate 18 /min Scott Berrios MD, MPH Work Phone: 5(536)847-131672 [place] [address] 08-27-2024 14:00-0500 SaO2% (BldA) [Mass fraction] 96 % Scott Berrios MD, MPH Work Phone: 4(373)865-388772 [place] [address] 08-27-2024 14:00-0500 Systolic blood pressure 142 mm[Hg] Scott Berrios MD, MPH Work Phone: 1(989)577-283772 [place] [address] 07-30-2024 13:34-0500 Body height 155.2 cm Scott Berrios MD, MPH Work Phone: 8(860)664-910472 [place] [address] 07-30-2024 13:34-0500 Body mass index (BMI) [Ratio] 44.16 kg/m2 Scott Berrios MD, MPH Work Phone: 7(788)243-048072 [place] [address] 07-30-2024 13:34-0500 Body temperature 97.5 [degF] Scott Berrios MD, MPH Work Phone: 2(319)996-636672 [place] [address] 07-30-2024 13:34-0500 Body weight 106.37 kg Scott Berrios MD, MPH Work Phone: 4(594)523-980572 [place] [address] 07-30-2024 13:34-0500 Diastolic blood pressure 56 mm[Hg] Scott Berrios MD, MPH Work Phone: 3(254)238-293872 [place] [address] 07-30-2024 13:34-0500 Heart rate 94 /min Scott Berrios MD, MPH Work Phone: 3(969)582-161772 [place] [address] 07-30-2024 13:34-0500 Respiratory rate 16 /min Scott Berrios MD, MPH Work Phone: 5(933)330-204872 [place] [address] 07-30-2024 13:34-0500 SaO2% (BldA) [Mass fraction] 93 % Scott Berrios MD, MPH Work Phone: 7(906)182-298772 [place] [address] 07-30-2024 13:34-0500 Systolic blood pressure 112 mm[Hg] Scott Berrios MD, MPH Work Phone: 9(259)048-428672 [place] [address] 07-30-2024 11:54-0500 Body height 155.2 cm Blas Rod MD Work Phone: [facility] Comment on above: with shoes 07-30-2024 11:54-0500 Body mass index (BMI) [Ratio] 44.16 kg/m2 Blas Rod MD Work Phone: [facility] 07-30-2024 11:54-0500 Body temperature 97.5 [degF] Blas Rod MD Work Phone: [facility] 07-30-2024 11:54-0500 Body weight 106.37 kg Blas Rod MD Work Phone: 1(665)739-220033 [address] Comment on above: with shoes 07-30-2024 11:54-0500 Diastolic blood pressure 56 mm[Hg] Blas Rod MD Work Phone: [facility] 07-30-2024 11:54-0500 Heart rate 94 /min Blas Rod MD Work Phone: [facility] 07-30-2024 11:54-0500 Respiratory rate 16 /min Blas Rod MD Work Phone: [facility] 07-30-2024 11:54-0500 SaO2% (BldA) [Mass fraction] 93 % Blas Rod MD Work Phone: [facility] 07-30-2024 11:54-0500 Systolic blood pressure 112 mm[Hg] Blas Rod MD Work Phone: [facility] 07-29-2024 15:07-0500 Body temperature 97 [degF] [employer] Work Phone: [facility] 07-29-2024 15:07-0500 Diastolic blood pressure 81 mm[Hg] [employer] Work Phone: [facility] 07-29-2024 15:07-0500 Heart rate 69 /min [employer] Work Phone: [facility] 07-29-2024 15:07-0500 Respiratory rate 16 /min [employer] Work Phone: [facility] 07-29-2024 15:07-0500 SaO2% (BldA) [Mass fraction] 95 % [employer] Work Phone: [facility] 07-29-2024 15:07-0500 Systolic blood pressure 92 mm[Hg] [employer] Work Phone: [facility] 07-29-2024 15:00-0500 Inhaled oxygen flow rate 2 L/min [employer] Work Phone: [facility] 07-29-2024 12:43-0500 Body mass index (BMI) [Ratio] 44.1 kg/m2 [employer] Work Phone: [facility] 07-29-2024 12:43-0500 Body weight 106 kg [employer] Work Phone: [facility] 07-28-2024 10:20-0500 Body mass index (BMI) [Ratio] 44.7 kg/m2 [employer] Work Phone: [facility] 07-28-2024 10:20-0500 Body weight 107.5 kg [employer] Work Phone: [facility] 07-28-2024 10:20-0500 Diastolic blood pressure 73 mm[Hg] [employer] Work Phone: [facility] 07-28-2024 10:20-0500 Heart rate 86 /min [employer] Work Phone: [facility] 07-28-2024 10:20-0500 SaO2% (BldA) [Mass fraction] 93 % [employer] Work Phone: [facility] 07-28-2024 10:20-0500 Systolic blood pressure 109 mm[Hg] [employer] Work Phone: [facility] 06-23-2024 15:45-0500 Diastolic blood pressure 52 mm[Hg] Blas Merrill MD Work Phone: [facility] 06-23-2024 15:45-0500 Heart rate 85 /min Blas Merrill MD Work Phone: [facility] 06-23-2024 15:45-0500 Respiratory rate 22 /min Blas Merrill MD Work Phone: [facility] 06-23-2024 15:45-0500 SaO2% (BldA) [Mass fraction] 97 % Blas Merrill MD Work Phone: [facility] 06-23-2024 15:45-0500 Systolic blood pressure 111 mm[Hg] Blas Merrill MD Work Phone: [facility] 06-23-2024 15:00-0500 Body temperature 97.81 [degF] Blas Merrill MD Work Phone: [facility] 06-23-2024 12:23-0500 Body height 152.4 cm Blas Merrill MD Work Phone: [facility] 06-08-2024 12:59-0500 Body mass index (BMI) [Ratio] 44 kg/m2 [employer] Work Phone: [facility] 06-08-2024 12:59-0500 Body weight 105.68 kg [employer] Work Phone: [facility] 06-08-2024 12:59-0500 Diastolic blood pressure 67 mm[Hg] [employer] Work Phone: [facility] 06-08-2024 12:59-0500 Heart rate 87 /min [employer] Work Phone: [facility] 06-08-2024 12:59-0500 Inhaled oxygen flow rate 2 L/min [employer] Work Phone: [facility] 06-08-2024 12:59-0500 SaO2% (BldA) [Mass fraction] 96 % [employer] Work Phone: [facility] 06-08-2024 12:59-0500 Systolic blood pressure 95 mm[Hg] [employer] Work Phone: [facility] 05-07-2024 07:45-0400 Body height 152.3 cm Blas Rod MD Work Phone: [facility] Comment on above: w/o shoes 05-07-2024 07:45-0400 Body mass index (BMI) [Ratio] 46.35 kg/m2 Blas Rod MD Work Phone: [facility] 05-07-2024 07:45-0400 Body temperature 97.81 [degF] Blas Rod MD Work Phone: [facility] 05-07-2024 07:45-0400 Body weight 107.5 kg Blas Rod MD Work Phone: [facility] Comment on above: w/o shoes 05-07-2024 07:45-0400 Diastolic blood pressure 67 mm[Hg] Blas Rod MD Work Phone: [facility] 05-07-2024 07:45-0400 Heart rate 87 /min Blas Rod MD Work Phone: [facility] 05-07-2024 07:45-0400 Respiratory rate 18 /min Blas Rod MD Work Phone: [facility] 05-07-2024 07:45-0400 SaO2% (BldA) [Mass fraction] 95 % Blas Rod MD Work Phone: [facility] Comment on above: 2 liters of oxygen 05-07-2024 07:45-0400 Systolic blood pressure 128 mm[Hg] Blas Rod MD Work Phone: [facility] 03-30-2024 02:53-0400 Blood Pressure Location ALDA ABBASI MD [facility] 03-30-2024 02:53-0400 Blood Pressure Method ALDA ABBASI MD [facility] 03-30-2024 02:53-0400 Body height 155 cm ALDA ABBASI MD [facility] 03-30-2024 02:53-0400 Body temperature 97.16 [degF] ALDA ABBASI MD [facility] 03-30-2024 02:53-0400 Body weight 111 kg ALDA ABBASI MD [facility] 03-30-2024 02:53-0400 Diastolic Blood Pressure Non-Invasive 64 mm[Hg] ALDA ABBASI MD [facility] 03-30-2024 02:53-0400 Heart rate 104 /min ALDA ABBASI MD [facility] 03-30-2024 02:53-0400 Respiratory rate 16 /min ALDA ABBASI MD [facility] 03-30-2024 02:53-0400 Systolic Blood Pressure Non-Invasive 123 mm[Hg] ALDA ABBASI MD [facility] 02-25-2024 12:06-[address] URSULA DONATO MD [facility] 02-25-2024 12:06-[address] URSULA DONATO MD [facility] 02-25-2024 12:06-0400 Diastolic Blood Pressure Non-Invasive 74 mm[Hg] DR URSULA DONATO MD [facility] 02-25-2024 12:06-0400 Heart rate 87 /min DR URSULA DONATO MD [facility] 02-25-2024 12:06-0400 Reason For Taking VItal Signs DR URSULA DONATO MD [facility] 02-25-2024 12:06-0400 Respiratory rate 18 /min DR URSULA DONATO MD [facility] 02-25-2024 12:06-0400 Systolic Blood Pressure Non-Invasive 110 mm[Hg] DR URSULA DONATO MD [facility] 02-25-2024 09:12-[address] URSULA DONATO MD [facility] 02-25-2024 09:12-[address] URSULA DONATO MD [facility] 02-25-2024 09:12-0400 Body temperature 97.88 [degF] DR URSULA DONATO MD [facility] 02-25-2024 09:12-0400 Body weight 108.[address] URSULA DONATO MD [facility] 02-25-2024 09:12-0400 Diastolic Blood Pressure Non-Invasive 66 mm[Hg] DR URSULA DONATO MD [facility] 02-25-2024 09:12-0400 Heart rate 92 /min DR URSULA DONATO MD [facility] 02-25-2024 09:12-0400 Respiratory rate 18 /min DR URSULA DONATO MD [facility] 02-25-2024 09:12-0400 Systolic Blood Pressure Non-Invasive 106 mm[Hg] DR URSULA DONATO MD [facility] 05-17-2023 11:27-0400 Body height 154.9 cm Pacc 1 Work Phone: [facility] 05-17-2023 11:27-0400 Body temperature 97.5 [degF] Pacc 1 Work Phone: [facility] 05-17-2023 11:27-0400 Body weight 120.2 kg Pacc 1 Work Phone: [facility] 05-17-2023 11:27-0400 Diastolic blood pressure 62 mm[Hg] Pacc 1 Work Phone: [facility] 05-17-2023 11:27-0400 Heart rate 94 /min Pacc 1 Work Phone: [facility] 05-17-2023 11:27-0400 SaO2% (BldA) [Mass fraction] 98 % Pacc 1 Work Phone: [facility] 05-17-2023 11:27-0400 Systolic blood pressure 94 mm[Hg] Pac 1 Work Phone: [facility] 05-07-2023 13:14-0400 Body height 154.9 cm Yessy [place] PA-C Work Phone: [facility] 05-07-2023 13:14-0400 Body temperature 97 [degF] Yessy Christopher PA-C Work Phone: [facility] 05-07-2023 13:14-0400 Body weight 120.93 kg Yessy Christopher PA-C Work Phone: [facility] 05-07-2023 13:14-0400 Diastolic blood pressure 78 mm[Hg] [place]essy [place] PA-C Work Phone: [facility] 05-07-2023 13:14-0400 Heart rate 101 /min Yessy Christopher PA-C Work Phone: [facility] 05-07-2023 13:14-0400 SaO2% (BldA) [Mass fraction] 95 % Yessy [place] PA-C Work Phone: [facility] 05-07-2023 13:14-0400 Systolic blood pressure 124 mm[Hg] Yessy Christopher PA-C Work Phone: [facility] 05-03-2023 10:04-0400 Body weight 122.33 kg Papa Douglass MD Work Phone: [facility] 05-03-2023 10:04-0400 Diastolic blood pressure 74 mm[Hg] Papa Douglass MD Work Phone: [facility] 05-03-2023 10:04-0400 Heart rate 90 /min Papa Douglass MD Work Phone: [facility] 05-03-2023 10:04-0400 Respiratory rate 16 /min Papa Douglass MD Work Phone: [facility] 05-03-2023 10:04-0400 Systolic blood pressure 126 mm[Hg] Papa Douglass MD Work Phone: [facility] 04-20-2023 09:44-0400 SaO2% (BldA) [Mass fraction] 91 % Dr. Papa Douglass Work Phone: [facility] 04-20-2023 09:00-0400 Body temperature 97 [degF] Dr. Papa Douglass Work Phone: [facility] 04-20-2023 09:00-0400 Diastolic blood pressure 66 mm[Hg] Dr. Papa Douglass Work Phone: [facility] 04-20-2023 09:00-0400 Heart rate 82 /min Dr. Papa Douglass Work Phone: [facility] 04-20-2023 09:00-0400 Respiratory rate 14 /min Dr. Papa Douglass Work Phone: [facility] 04-20-2023 09:00-0400 Systolic blood pressure 110 mm[Hg] Dr. Papa Douglass Work Phone: [facility] 04-20-2023 07:24-0400 Inhaled oxygen flow rate 1 L/min Dr. Papa Douglass Work Phone: [facility] 04-20-2023 03:34-0400 Body mass index (BMI) [Ratio] 49 kg/m2 Dr. Papa Douglass Work Phone: [facility] 04-20-2023 03:34-0400 Body weight 117.[address] Papa Douglass Work Phone: [facility] 04-19-2023 13:49-0400 Body height 154.[address] Papa Douglass Work Phone: 7(011)998-353665 [place] [address] 04-17-2023 09:18-0400 Body mass index (BMI) [Ratio] 49.4 kg/m2 Dr. Papa Douglass Work Phone: 7(453)785-901965 [place] [address] 04-17-2023 09:18-0400 Body temperature 98.4 [degF] Dr. Papa Douglass Work Phone: 0(791)180-142308 [address] 04-17-2023 09:18-0400 Body weight 118.[address] Papa Douglass Work Phone: 9(508)360-440629 [place] [address] 04-17-2023 09:18-0400 Diastolic blood pressure 72 mm[Hg] Dr. Papa Douglass Work Phone: 6(456)012-130829 [place] [address] 04-17-2023 09:18-0400 Heart rate 86 /min Dr. Papa Douglass Work Phone: 5(186)362-903565 [place] [address] 04-17-2023 09:18-0400 Respiratory rate 18 /min Dr. Papa Douglass Work Phone: 2(542)687-749365 [place] [address] 04-17-2023 09:18-0400 SaO2% (BldA) [Mass fraction] 95 % Dr. Papa Douglass Work Phone: 8(381)867-056065 [place] [address] 04-17-2023 09:18-0400 Systolic blood pressure 112 mm[Hg] Dr. Papa Douglass Work Phone: [facility] 03-05-2023 08:40-0400 Diastolic blood pressure 73 mm[Hg] Maribrittney Prettyle DO Work Phone: [facility] 03-05-2023 08:40-0400 Heart rate 86 /min Mari Jernigan DO Work Phone: [facility] 03-05-2023 08:40-0400 SaO2% (BldA) [Mass fraction] 95 % Mari Jernigan DO Work Phone: [facility] 03-05-2023 08:40-0400 Systolic blood pressure 106 mm[Hg] Mari Jernigan DO Work Phone: [facility] 02-18-2023 11:26-0400 Body mass index (BMI) [Ratio] 49 kg/m2 Dr. Papa Douglass Work Phone: [facility] 02-18-2023 11:26-0400 Body temperature 98.1 [degF] Dr. Papa Douglass Work Phone: [facility] 02-18-2023 11:26-0400 Body weight 117.[address] Papa Douglass Work Phone: [facility] 02-18-2023 11:26-0400 Diastolic blood pressure 62 mm[Hg] Dr. Papa Douglass Work Phone: [facility] 02-18-2023 11:26-0400 Heart rate 68 /min Dr. Papa Douglass Work Phone: [facility] 02-18-2023 11:26-0400 Respiratory rate 18 /min Dr. Papa Douglass Work Phone: [facility] 02-18-2023 11:26-0400 SaO2% (BldA) [Mass fraction] 96 % Dr. Papa Douglass Work Phone: [facility] 02-18-2023 11:26-0400 Systolic blood pressure 90 mm[Hg] Dr. Papa Douglass Work Phone: [facility] 01-20-2023 23:17-0400 Diastolic blood pressure 69 mm[Hg] [facility] 01-20-2023 23:17-0400 Heart rate 72 /min [facility] 01-20-2023 23:17-0400 Respiratory rate 18 /min [facility] 01-20-2023 23:17-0400 SaO2% (BldA) [Mass fraction] 99 % [facility] 01-20-2023 23:17-0400 Systolic blood pressure 114 mm[Hg] [facility] 01-20-2023 17:42-0400 Body height 154.94 cm [facility] 01-20-2023 17:42-0400 Body mass index (BMI) [Ratio] 49 kg/m2 [facility] 01-20-2023 17:42-0400 Body temperature 96.9 [degF] [facility] 01-20-2023 17:42-0400 Body weight 117.75 kg [facility] 01-19-2023 08:10-0400 Body weight 116.39 kg Papa Douglass MD Work Phone: [facility] 01-19-2023 08:10-0400 Diastolic blood pressure 76 mm[Hg] Papa Douglass MD Work Phone: [facility] 01-19-2023 08:10-0400 Heart rate 86 /min Papa Douglass MD Work Phone: [facility] 01-19-2023 08:10-0400 Respiratory rate 16 /min Papa Douglass MD Work Phone: [facility] 01-19-2023 08:10-0400 SaO2% (BldA) [Mass fraction] 96 % Papa Douglass MD Work Phone: [facility] 01-19-2023 08:10-0400 Systolic blood pressure 118 mm[Hg] Papa Douglass MD Work Phone: [facility] 01-07-2023 14:04-0400 Diastolic blood pressure 55 mm[Hg] [facility] 01-07-2023 14:04-0400 Systolic blood pressure 114 mm[Hg] [facility] 01-07-2023 12:51-0400 Body height 154.94 cm [facility] 01-07-2023 12:51-0400 Body mass index (BMI) [Ratio] 48.5 kg/m2 [facility] 01-07-2023 12:51-0400 Body temperature 97.9 [degF] [facility] 01-07-2023 12:51-0400 Body weight 116.57 kg [facility] 01-07-2023 12:51-0400 Heart rate 99 /min [facility] 01-07-2023 12:51-0400 Respiratory rate 18 /min [facility] 01-07-2023 12:51-0400 SaO2% (BldA) [Mass fraction] 94 % [facility] 10-25-2022 11:13-0400 Body temperature 97.7 [degF] [facility] 10-25-2022 11:13-0400 Diastolic blood pressure 60 mm[Hg] [facility] 10-25-2022 11:13-0400 Heart rate 75 /min [facility] 10-25-2022 11:13-0400 Respiratory rate 18 /min [facility] 10-25-2022 11:13-0400 SaO2% (BldA) [Mass fraction] 92 % [facility] 10-25-2022 11:13-0400 Systolic blood pressure 106 mm[Hg] [facility] 10-25-2022 08:54-0400 Body height 154.94 cm [facility] 10-25-2022 08:54-0400 Body mass index (BMI) [Ratio] 47.4 kg/m2 [facility] 10-25-2022 08:54-0400 Body weight 113.85 kg [facility] 10-10-2022 05:05-0400 Body height 154.94 cm [facility] 10-10-2022 05:05-0400 Body mass index (BMI) [Ratio] 47.4 kg/m2 [facility] 10-10-2022 05:05-0400 Body temperature 97.2 [degF] [facility] 10-10-2022 05:05-0400 Body weight 113.85 kg [facility] 10-10-2022 05:05-0400 Diastolic blood pressure 98 mm[Hg] [facility] 10-10-2022 05:05-0400 Heart rate 94 /min [facility] 10-10-2022 05:05-0400 Respiratory rate 20 /min [facility] 10-10-2022 05:05-0400 SaO2% (BldA) [Mass fraction] 97 % [facility] 10-10-2022 05:05-0400 Systolic blood pressure 137 mm[Hg] [facility] 10-01-2022 09:04-0400 Body temperature 98.4 [degF] Coco Tannhof FLIGHT RADIO OFFICER.SALES ACCOUNT MANAGER Work Phone: [facility] 10-01-2022 09:04-0400 Body weight 112.49 kg Coco Tannhof FLIGHT RADIO OFFICER.SALES ACCOUNT MANAGER Work Phone: [facility] 10-01-2022 09:04-0400 Diastolic blood pressure 64 mm[Hg] Coco Tannhof FLIGHT RADIO OFFICER.SALES ACCOUNT MANAGER Work Phone: [facility] 10-01-2022 09:04-0400 Heart rate 86 /min Coco Tannhof FLIGHT RADIO OFFICER.SALES ACCOUNT MANAGER Work Phone: [facility] 10-01-2022 09:04-0400 Respiratory rate 16 /min Coco Tannhof FLIGHT RADIO OFFICER.SALES ACCOUNT MANAGER Work Phone: [facility] 10-01-2022 09:04-0400 SaO2% (BldA) [Mass fraction] 98 % Coco Tannhof FLIGHT RADIO OFFICER.SALES ACCOUNT MANAGER Work Phone: [facility] 10-01-2022 09:04-0400 Systolic blood pressure 118 mm[Hg] Coco Tannhof FLIGHT RADIO OFFICER.SALES ACCOUNT MANAGER Work Phone: [facility] 09-27-2022 09:46-0500 Body weight 110.22 kg Coco Tannhof FLIGHT RADIO OFFICER.SALES ACCOUNT MANAGER Work Phone: [facility] 09-27-2022 09:46-0500 Diastolic blood pressure 72 mm[Hg] Coco Tannhof FLIGHT RADIO OFFICER.SALES ACCOUNT MANAGER Work Phone: [facility] 09-27-2022 09:46-0500 Heart rate 78 /min Coco Tannhof FLIGHT RADIO OFFICER.SALES ACCOUNT MANAGER Work Phone: [facility] 09-27-2022 09:46-0500 Respiratory rate 20 /min Coco Tannhof FLIGHT RADIO OFFICER.SALES ACCOUNT MANAGER Work Phone: [facility] 09-27-2022 09:46-0500 SaO2% (BldA) [Mass fraction] 98 % Coco Waters APRN.SALES ACCOUNT MANAGER Work Phone: [facility] 09-27-2022 09:46-0500 Systolic blood pressure 120 mm[Hg] Coco Waters APRN.SALES ACCOUNT MANAGER Work Phone: [facility] 09-21-2022 18:07-0500 Diastolic blood pressure 78 mm[Hg] [facility] 09-21-2022 18:07-0500 Heart rate 84 /min [facility] 09-21-2022 18:07-0500 Respiratory rate 19 /min [facility] 09-21-2022 18:07-0500 SaO2% (BldA) [Mass fraction] 95 % [facility] 09-21-2022 18:07-0500 Systolic blood pressure 131 mm[Hg] [facility] 09-21-2022 14:10-0500 Body height 154.94 cm [facility] 09-21-2022 14:10-0500 Body mass index (BMI) [Ratio] 47.3 kg/m2 [facility] 09-21-2022 14:10-0500 Body temperature 97.4 [degF] [facility] 09-21-2022 14:10-0500 Body weight 113.67 kg [facility] 09-21-2022 13:37-0500 Body temperature 97.3 [degF] Sabine Borrego APRN.SALES ACCOUNT MANAGER Work Phone: [facility] 09-21-2022 13:37-0500 Body weight 114.13 kg Sabine Borrego APRN.SALES ACCOUNT MANAGER Work Phone: [facility] 09-21-2022 13:37-0500 Diastolic blood pressure 72 mm[Hg] Sabine Borrego APRN.SALES ACCOUNT MANAGER Work Phone: [facility] 09-21-2022 13:37-0500 Heart rate 73 /min Sabine Borrego APRN.SALES ACCOUNT MANAGER Work Phone: [facility] 09-21-2022 13:37-0500 Respiratory rate 18 /min Sabine Borrego APRN.SALES ACCOUNT MANAGER Work Phone: [facility] 09-21-2022 13:37-0500 SaO2% (BldA) [Mass fraction] 98 % Sabine Borrego APRN.SALES ACCOUNT MANAGER Work Phone: [facility] 09-21-2022 13:37-0500 Systolic blood pressure 118 mm[Hg] Sabine Borrego APRN.SALES ACCOUNT MANAGER Work Phone: [facility] 08-31-2022 15:06-0500 Body temperature 97 [degF] [facility] 08-31-2022 15:06-0500 Diastolic blood pressure 67 mm[Hg] [facility] 08-31-2022 15:06-0500 Heart rate 75 /min [facility] 08-31-2022 15:06-0500 Respiratory rate 16 /min [facility] 08-31-2022 15:06-0500 SaO2% (BldA) [Mass fraction] 94 % [facility] 08-31-2022 15:06-0500 Systolic blood pressure 112 mm[Hg] [facility] 08-31-2022 13:59-0500 Body height 154.94 cm [facility] 08-31-2022 13:59-0500 Body mass index (BMI) [Ratio] 27.3 kg/m2 [facility] 08-31-2022 13:59-0500 Body weight 65.77 kg [facility] 08-30-2022 16:22-0500 Diastolic blood pressure 58 mm[Hg] Dionne Turner MD Work Phone: [facility] 08-30-2022 16:22-0500 Heart rate 75 /min Dionne Turner MD Work Phone: [facility] 08-30-2022 16:22-0500 SaO2% (BldA) [Mass fraction] 95 % Dionne Turner MD Work Phone: [facility] 08-30-2022 16:22-0500 Systolic blood pressure 110 mm[Hg] Dionne Turner MD Work Phone: [facility] 08-30-2022 14:03-0500 Body weight 110.68 kg Dionne Turner MD Work Phone: [facility] 08-12-2022 13:18-0500 Body height 154.94 cm [facility] 08-12-2022 13:18-0500 Body mass index (BMI) [Ratio] 46.3 kg/m2 [facility] 08-12-2022 13:18-0500 Body temperature 96.5 [degF] [facility] 08-12-2022 13:18-0500 Body weight 111.13 kg [facility] 08-12-2022 13:18-0500 Diastolic blood pressure 70 mm[Hg] [facility] 08-12-2022 13:18-0500 Heart rate 92 /min [facility] 08-12-2022 13:18-0500 Respiratory rate 18 /min [facility] 08-12-2022 13:18-0500 SaO2% (BldA) [Mass fraction] 98 % [facility] 08-12-2022 13:18-0500 Systolic blood pressure 129 mm[Hg] [facility] 08-07-2022 06:59-0500 Body weight 110.95 kg Mela Garcia APRN.SALES ACCOUNT MANAGER Work Phone: [facility] 08-07-2022 06:59-0500 Diastolic blood pressure 68 mm[Hg] Mela Garcia APRN.SALES ACCOUNT MANAGER Work Phone: [facility] 08-07-2022 06:59-0500 Systolic blood pressure 120 mm[Hg] Mela Garcia APRN.SALES ACCOUNT MANAGER Work Phone: [facility] 07-18-2022 10:37-0500 Body height 154.9 cm Marissa Podlogar FLIGHT RADIO OFFICER.SALES ACCOUNT MANAGER Work Phone: [facility] 07-18-2022 10:37-0500 Body temperature 96.69 [degF] Marissa Podlogar FLIGHT RADIO OFFICER.SALES ACCOUNT MANAGER Work Phone: [facility] 07-18-2022 10:37-0500 Body weight 112.95 kg Marissa Podlogar FLIGHT RADIO OFFICER.SALES ACCOUNT MANAGER Work Phone: [facility] 07-18-2022 10:37-0500 Diastolic blood pressure 60 mm[Hg] Marissa Podlogar FLIGHT RADIO OFFICER.SALES ACCOUNT MANAGER Work Phone: [facility] 07-18-2022 10:37-0500 Heart rate 80 /min Marissa Podlogar FLIGHT RADIO OFFICER.SALES ACCOUNT MANAGER Work Phone: [facility] 07-18-2022 10:37-0500 Respiratory rate 16 /min Marissa Podlogar FLIGHT RADIO OFFICER.SALES ACCOUNT MANAGER Work Phone: [facility] 07-18-2022 10:37-0500 SaO2% (BldA) [Mass fraction] 97 % Marissa Podlogar FLIGHT RADIO OFFICER.SALES ACCOUNT MANAGER Work Phone: [facility] 07-18-2022 10:37-0500 Systolic blood pressure 136 mm[Hg] Marissa Podlogar FLIGHT RADIO OFFICER.SALES ACCOUNT MANAGER Work Phone: [facility] 06-28-2022 09:51-0500 Body weight 108.86 kg Cocokobi Gonzalezhof FLIGHT RADIO OFFICER.SALES ACCOUNT MANAGER Work Phone: [facility] 06-28-2022 09:51-0500 Diastolic blood pressure 66 mm[Hg] Coco Tannhof FLIGHT RADIO OFFICER.SALES ACCOUNT MANAGER Work Phone: [facility] 06-28-2022 09:51-0500 Heart rate 88 /min Coco Tannhof FLIGHT RADIO OFFICER.SALES ACCOUNT MANAGER Work Phone: [facility] 06-28-2022 09:51-0500 Respiratory rate 16 /min Coco Tannhof FLIGHT RADIO OFFICER.SALES ACCOUNT MANAGER Work Phone: [facility] 06-28-2022 09:51-0500 SaO2% (BldA) [Mass fraction] 98 % Coco Tannhof FLIGHT RADIO OFFICER.SALES ACCOUNT MANAGER Work Phone: [facility] 06-28-2022 09:51-0500 Systolic blood pressure 112 mm[Hg] Coco Tannhof FLIGHT RADIO OFFICER.SALES ACCOUNT MANAGER Work Phone: [facility] 06-26-2022 09:39-0500 Body temperature 97.81 [degF] Génesis Athy PA-C Work Phone: [facility] 06-26-2022 09:39-0500 Body weight 106.59 kg Génesis Athy PA-C Work Phone: [facility] 06-26-2022 09:39-0500 Diastolic blood pressure 62 mm[Hg] Génesis Athy PA-C Work Phone: [facility] 06-26-2022 09:39-0500 Heart rate 104 /min Génesis Athy PA-C Work Phone: [facility] 06-26-2022 09:39-0500 Respiratory rate 18 /min Génesis Athy PA-C Work Phone: [facility] 06-26-2022 09:39-0500 SaO2% (BldA) [Mass fraction] 95 % Génesis Athy PA-C Work Phone: [facility] 06-26-2022 09:39-0500 Systolic blood pressure 122 mm[Hg] Génesis Athy PA-C Work Phone: [facility] 06-21-2022 08:10-0500 Body weight 108.41 kg Coco Lisahof FLIGHT RADIO OFFICER.SALES ACCOUNT MANAGER Work Phone: [facility] 06-21-2022 08:10-0500 Diastolic blood pressure 74 mm[Hg] Coco Tannhof FLIGHT RADIO OFFICER.SALES ACCOUNT MANAGER Work Phone: [facility] 06-21-2022 08:10-0500 Heart rate 83 /min Coco Tannhof FLIGHT RADIO OFFICER.SALES ACCOUNT MANAGER Work Phone: [facility] 06-21-2022 08:10-0500 Respiratory rate 16 /min Coco Tannhof FLIGHT RADIO OFFICER.SALES ACCOUNT MANAGER Work Phone: [facility] 06-21-2022 08:10-0500 SaO2% (BldA) [Mass fraction] 99 % Coco Tannhof FLIGHT RADIO OFFICER.SALES ACCOUNT MANAGER Work Phone: [facility] 06-21-2022 08:10-0500 Systolic blood pressure 112 mm[Hg] Coco Tannhof FLIGHT RADIO OFFICER.SALES ACCOUNT MANAGER Work Phone: [facility] 06-17-2022 13:04-0500 Heart rate 102 /min [facility] 06-17-2022 13:04-0500 SaO2% (BldA) [Mass fraction] 94 % [facility] 06-17-2022 12:33-0500 Body height 154.94 cm [facility] Work Phone: 06-17-2022 12:33-0500 Body mass index (BMI) [Ratio] 45.7 kg/m2 [facility] 06-17-2022 12:33-0500 Body temperature 96.8 [degF] [facility] 06-17-2022 12:33-0500 Body weight 109.76 kg [facility] 06-17-2022 12:33-0500 Diastolic blood pressure 75 mm[Hg] [facility] 06-17-2022 12:33-0500 Respiratory rate 15 /min [facility] 06-17-2022 12:33-0500 Systolic blood pressure 145 mm[Hg] [facility] 06-08-2022 21:53-0500 Respiratory rate 18 /min Dr. Papa Douglass Work Phone: [facility] 06-08-2022 21:16-0500 Body height 154.[address] Papa Douglass Work Phone: [facility] Work Phone: 06-08-2022 21:16-0500 Body mass index (BMI) [Ratio] 45.3 kg/m2 Dr. Papa Douglass Work Phone: [facility] 06-08-2022 21:16-0500 Body temperature 97.2 [degF] Dr. Papa Douglass Work Phone: [facility] 06-08-2022 21:16-0500 Body weight 108.[address] Papa Douglass Work Phone: [facility] 06-08-2022 21:16-0500 Diastolic blood pressure 64 mm[Hg] Dr. Papa Douglass Work Phone: [facility] 06-08-2022 21:16-0500 Heart rate 74 /min Dr. Papa Douglass Work Phone: [facility] 06-08-2022 21:16-0500 SaO2% (BldA) [Mass fraction] 96 % Dr. Papa Douglass Work Phone: [facility] 06-08-2022 21:16-0500 Systolic blood pressure 137 mm[Hg] Dr. Papa Douglass Work Phone: [facility] 03-19-2022 11:34-0400 Body weight 107.05 kg Coco Bensonf FLIGHT RADIO OFFICER.SALES ACCOUNT MANAGER Work Phone: [facility] 03-19-2022 11:34-0400 Diastolic blood pressure 62 mm[Hg] Coco Gonzalezhof FLIGHT RADIO OFFICER.SALES ACCOUNT MANAGER Work Phone: [facility] 03-19-2022 11:34-0400 Heart rate 100 /min Coco Gonzalezhof FLIGHT RADIO OFFICER.SALES ACCOUNT MANAGER Work Phone: [facility] 03-19-2022 11:34-0400 Respiratory rate 16 /min Coco Gonzalezhof FLIGHT RADIO OFFICER.SALES ACCOUNT MANAGER Work Phone: [facility] 03-19-2022 11:34-0400 SaO2% (BldA) [Mass fraction] 98 % Coco Bensonf FLIGHT RADIO OFFICER.SALES ACCOUNT MANAGER Work Phone: [facility] 03-19-2022 11:34-0400 Systolic blood pressure 108 mm[Hg] Coco Gonzalezhof FLIGHT RADIO OFFICER.SALES ACCOUNT MANAGER Work Phone: [facility] 03-14-2022 13:03-0400 Body weight 106.14 kg Gretchen Ibarraoce FLIGHT RADIO OFFICER.SALES ACCOUNT MANAGER Work Phone: [facility] 02-16-2022 12:24-0400 Body temperature 96.49 [degF] Bia Jacinto FLIGHT RADIO OFFICER.SALES ACCOUNT MANAGER Work Phone: [facility] 02-16-2022 12:24-0400 Body weight 108.41 kg Bia Jacinto FLIGHT RADIO OFFICER.SALES ACCOUNT MANAGER Work Phone: [facility] 02-16-2022 12:24-0400 Diastolic blood pressure 72 mm[Hg] Bia Jacinto FLIGHT RADIO OFFICER.SALES ACCOUNT MANAGER Work Phone: [facility] 02-16-2022 12:24-0400 Heart rate 91 /min Bia Jacinto FLIGHT RADIO OFFICER.SALES ACCOUNT MANAGER Work Phone: [facility] 02-16-2022 12:24-0400 Respiratory rate 20 /min Bia Jacinto FLIGHT RADIO OFFICER.SALES ACCOUNT MANAGER Work Phone: [facility] 02-16-2022 12:24-0400 SaO2% (BldA) [Mass fraction] 96 % Bia Jacinto FLIGHT RADIO OFFICER.SALES ACCOUNT MANAGER Work Phone: [facility] 02-16-2022 12:24-0400 Systolic blood pressure 110 mm[Hg] Bia Jacinto FLIGHT RADIO OFFICER.SALES ACCOUNT MANAGER Work Phone: [facility] 02-11-2022 09:25-0400 SaO2% (BldA) [Mass fraction] 96 % Dr. Papa Douglass Work Phone: [facility] Work Phone: 02-11-2022 09:20-0400 Body temperature 97.8 [degF] Dr. Papa Douglass Work Phone: [facility] Work Phone: 02-11-2022 09:20-0400 Diastolic blood pressure 60 mm[Hg] Dr. Papa Douglass Work Phone: [facility] Work Phone: 02-11-2022 09:20-0400 Heart rate 80 /min Dr. Papa Douglass Work Phone: [facility] Work Phone: 02-11-2022 09:20-0400 Respiratory rate 18 /min Dr. Papa Douglass Work Phone: [facility] Work Phone: 02-11-2022 09:20-0400 Systolic blood pressure 113 mm[Hg] Dr. Papa Douglass Work Phone: [facility] Work Phone: 02-10-2022 14:18-0400 Body height 154.[address] Papa Douglass Work Phone: [facility] Work Phone: 02-10-2022 14:18-0400 Body weight 106.[address] Papa Douglass Work Phone: [facility] Work Phone: 02-09-2022 20:44-0400 Body mass index (BMI) [Ratio] 44.4 kg/m2 Dr. Papa Douglass Work Phone: [facility] Work Phone: 02-09-2022 20:27-0400 Diastolic blood pressure 68 mm[Hg] [facility] Work Phone: 02-09-2022 20:27-0400 Systolic blood pressure 117 mm[Hg] [facility] Work Phone: 02-09-2022 19:39-0400 Body temperature 97.9 [degF] [facility] Work Phone: 02-09-2022 19:39-0400 Heart rate 99 /min [facility] Work Phone: 02-09-2022 19:39-0400 Respiratory rate 18 /min [facility] Work Phone: 02-09-2022 19:39-0400 SaO2% (BldA) [Mass fraction] 97 % [facility] Work Phone: 02-09-2022 17:44-0400 Body height 154.94 cm [facility] Work Phone: 02-09-2022 17:44-0400 Body mass index (BMI) [Ratio] 44.1 kg/m2 [facility] Work Phone: 02-09-2022 17:44-0400 Body weight 106 kg [facility] Work Phone: 02-08-2022 14:04-0400 Body weight 105.6 kg Papa Douglass MD Work Phone: [facility] 02-08-2022 14:04-0400 Diastolic blood pressure 72 mm[Hg] Papa Douglass MD Work Phone: [facility] 02-08-2022 14:04-0400 Heart rate 100 /min Papa Douglass MD Work Phone: [facility] 02-08-2022 14:04-0400 Respiratory rate 16 /min Papa Douglass MD Work Phone: [facility] 02-08-2022 14:04-0400 Systolic blood pressure 120 mm[Hg] Papa Douglass MD Work Phone: [facility] 10-16-2021 10:57-0400 Body temperature 97.81 [degF] Sasha Alexandre FLIGHT RADIO OFFICER.SALES ACCOUNT MANAGER Work Phone: [facility] 10-16-2021 10:57-0400 Body weight 107.41 kg Sashabhargav Schroeder FLIGHT RADIO OFFICER.SALES ACCOUNT MANAGER Work Phone: [facility] 10-16-2021 10:57-0400 Diastolic blood pressure 70 mm[Hg] Sasha Alexandre FLIGHT RADIO OFFICER.SALES ACCOUNT MANAGER Work Phone: [facility] 10-16-2021 10:57-0400 Heart rate 102 /min Sasha Alexandre FLIGHT RADIO OFFICER.SALES ACCOUNT MANAGER Work Phone: [facility] 10-16-2021 10:57-0400 Respiratory rate 20 /min Sasha Alexandre FLIGHT RADIO OFFICER.SALES ACCOUNT MANAGER Work Phone: [facility] 10-16-2021 10:57-0400 SaO2% (BldA) [Mass fraction] 96 % Sasha Alexandre FLIGHT RADIO OFFICER.SALES ACCOUNT MANAGER Work Phone: [facility] 10-16-2021 10:57-0400 Systolic blood pressure 108 mm[Hg] Sasha Alexandre FLIGHT RADIO OFFICER.SALES ACCOUNT MANAGER Work Phone: [facility] Encounters Encounter Date Encounter Type Care Provider Facility Start: 12-31-2024 ambulatory VERO MAST Facility:[facility] Start: 12-31-2024 End: 12-31-2024 Telemedicine consultation with patient Scott Berrios MD, MPH Work Phone: Division of Medical Oncology Comment on above: Neuroendocrine neopl asm of stomach (Primary Dx); Neuroendocrine cancer; Hepatosplenomegaly; Elevated transaminase level Start: 12-30-2024 End: 12-30-2024 Patient encounter procedure Neal Ruiz [facility] Work Phone: Start: 12-30-2024 End: 12-30-2024 ambulatory VERO MAST TANK ASSEMBLER Work Phone: [facility] Work Phone: Start: 12-24-2024 End: 12-24-2024 Clinical Support Encounter Scott Berrios MD, MPH Work Phone: Clinical [facility] Comment on above: Neuroendocrine neopl asm of stomach Start: 12-24-2024 ambulatory SCOTT BERRIOS Facility: [facility] Start: 12-24-2024 End: 12-24-2024 Subsequent hospital visit by physician Scott Berrios MD, MPH Work Phone: [facility] Comment on above: Arrived Start: 12-02-2024 End: 12-06-2024 ambulatory VERO MAST FLIGHT RADIO OFFICER-SALES ACCOUNT MANAGER Facility:[facility] Start: 12-02-2024 End: 12-06-2024 Outreach Lab VERO MAST FLIGHT RADIO OFFICER-SALES ACCOUNT MANAGER [facility] Start: 11-17-2024 End: 12-18-2024 ambulatory Papa Douglass MD Work Phone: [facility] Start: 11-16-2024 Encounter for genera l adult medical examination without abnormal findings Elsa José [facility] Start: 11-12-2024 End: 11-12-2024 Patient encounter procedure TRIMMER HAND Elsa José -Sleep Lab Work Phone: Start: 11-12-2024 End: 11-12-2024 ambulatory Elsa José Facility:[facility] Start: 11-06-2024 End: 11-10-2024 ambulatory VERO MAST FLIGHT RADIO OFFICER-SALES ACCOUNT MANAGER Facility:[facility] Start: 11-06-2024 End: 11-10-2024 Outreach Lab VERO MAST FLIGHT RADIO OFFICER-SALES ACCOUNT MANAGER [facility] Start: 11-03-2024 End: 11-03-2024 Emergency department patient visit VERO MAST TANK ASSEMBLER Work Phone: -Emergency Department Work Phone: Start: 10-30-2024 End: 10-30-2024 Patient encounter procedure ARVIND José -[facility] Work Phone: Start: 10-30-2024 End: 10-30-2024 ambulatory VERO MAST Facility:[facility] Start: 10-23-2024 End: 10-23-2024 ambulatory VERO MAST TANK ASSEMBLER Work Phone: [facility] Work Phone: Start: 10-23-2024 End: 10-23-2024 Patient encounter procedure ARVIND José -Sleep Lab Work Phone: Start: 10-23-2024 End: 10-23-2024 ambulatory Elsa José Facility:[facility] Start: 10-14-2024 ambulatory Elsa José Facili ty:[facility] Start: 10-14-2024 Non-patient / Non-visit Dr. Alberto lott DO -[facility] Start: 10-06-2024 End: 10-06-2024 ambulatory VERO MAST TANK ASSEMBLER Work Phone: [facility] Work Phone: Start: 10-06-2024 End: 10-06-2024 Patient encounter procedure ARVIND José -Pulmonary Services/Neurology Work Phone: Start: 10-05-2024 End: 10-06-2024 ambulatory VERO MAST TANK ASSEMBLER Work Phone: [facility] Work Phone: Start: 10-05-2024 End: 10-05-2024 Patient encounter procedure ARVIND José -Pulmonary Services/Neurology Work Phone: Start: 10-05-2024 End: 10-05-2024 ambulatory Elsa José Facility:[facility] Start: 09-30-2024 End: 09-30-2024 Emergency department patient visit VERO MAST TANK ASSEMBLER Work Phone: -Emergency Department Work Phone: Start: 09-29-2024 End: 09-30-2024 ambulatory Rosa Cardenas RN NURSE RETENTION MANAGER Comment on above: Foot Pain (Midfoot) Start: 09-28-2024 End: 09-28-2024 ambulatory VERO MAST TANK ASSEMBLER Work Phone: [facility] Work Phone: Start: 09-28-2024 End: 09-28-2024 Patient encounter procedure ARVIND José -Sleep Lab Work Phone: Start: 09-28-2024 End: 09-28-2024 ambulatory Elsa José Facility:[facility] Start: 09-24-2024 End: 09-24-[address] Scott Berrios MD -Laboratory Work Phone: Start: 09-24-2024 End: 09-24-2024 ambulatory VERO MAST TANK ASSEMBLER Work Phone: [facility] Work Phone: Start: 09-24-2024 End: 09-24-2024 ambulatory Scott Berrios Facility:[facility] Start: 09-21-2024 End: 09-23-2024 Telephone encounter Supriya Stone RN Division of Medical Oncology Comment on above: Lab Review Start: 09-15-2024 End: 09-15-2024 ambulatory VERO MAST FLIGHT RADIO OFFICER-SALES ACCOUNT MANAGER Facility:[facility] Start: 09-15-2024 End: 09-15-2024 Patient encounter procedure VERO MAST FLIGHT RADIO OFFICER-SALES ACCOUNT MANAGER [facility] Start: 09-07-2024 ambulatory VERO MAST Facility:[facility] Start: 09-04-2024 End: 09-04-2024 Patient encounter procedure TRIMMER HAND Elsa José [facility] Pulmonary Medicine Work Phone: Start: 09-04-2024 End: 09-04-2024 ambulatory VERO MAST Facility:[facility] Start: 09-03-2024 End: 09-03-2024 Subsequent hospital visit by physician Blas Merrill MD Work Phone: [facility] Start: 09-03-2024 ambulatory VERO MAST Facility:[facility] Start: 09-02-2024 End: 09-06-2024 ambulatory VERO MAST FLIGHT RADIO OFFICER-SALES ACCOUNT MANAGER Facility:[facility] Start: 09-02-2024 End: 09-06-2024 Encounter for general adult medical examination without abnormal findings VERO MAST FLIGHT RADIO OFFICER-SALES ACCOUNT MANAGER Facility:[facility] Start: 09-02-2024 End: 09-06-2024 Outreach Lab VERO MAST FLIGHT RADIO OFFICER-SALES ACCOUNT MANAGER [facility] Start: 08-27-2024 ambulatory VERO MAST Facility:[facility] Start: 08-27-2024 End: 08-27-2024 Office outpatient visit 40 minutes Scott Berrios MD, MPH Work Phone: Division of Medical Oncology Comment on above: Microcytic anemia (P rimary Dx) Microcytic anemia (P rimary Dx); Iron deficiency anemia, unspecified iron deficiency anemia type Microcytic anemia (P rimary Dx); Iron deficiency anemia, unspecified iron deficiency anemia type; Neuroendocrine cancer Start: 08-27-2024 ambulatory VERO MAST Facility:[facility] Start: 08-14-2024 ambulatory VERO MAST Facility:[facility] Start: 08-14-2024 ambulatory VERO MAST Facility:[facility] Start: 08-12-2024 ambulatory SCOTT BERRIOS Facility: [facility] Start: 07-31-2024 End: 07-31-2024 Telephone encounter Scott [...] Subsequent hospital visit by physician Karolina Piedra APRN-SALES ACCOUNT MANAGER, DNP Work Phone: [facility] Comment on above: Arrived Start: 07-29-2024 Non-patient / Non-visit Brayan Heath nd DO -[facility] Start: 07-29-2024 End: 07-29-2024 Admission to same day surgery center Brayan Cast DO -Endoscopy Work Phone: Start: 07-29-2024 End: 07-29-2024 ambulatory VERO MAST Facility:[facility] Start: 07-28-2024 End: 07-28-[address] Ralph Singh MD -[facility] Work Phone: Start: 07-28-2024 End: 07-28-2024 ambulatory VERO MAST Facility:[facility] Start: 07-24-2024 End: 07-24-[address] Ralph Singh MD -Ultrasound, [facility] Work Phone: Start: 07-24-2024 End: 07-24-2024 ambulatory VERO MAST Facility:[facility] Start: 07-09-2024 ambulatory BLAS SHAHYD Facility :[facility] Start: 07-02-2024 ambulatory VERO MAST Facility:[facility] Start: 06-23-2024 End: 06-23-2024 Subsequent hospital visit by physician Blas Merrill MD Work Phone: [facility] Start: 06-23-2024 ambulatory VERO MAST Facility:[facility] Start: 06-16-2024 End: 06-16-[address] Ralph Singh MD -Nuclear Medicine, [facility] Work Phone: Start: 06-16-2024 End: 06-16-2024 ambulatory Ralph Singh Facility:[facility] Start: 06-08-2024 End: 06-08-2024 Patient encounter procedure Jaizel HERNANDEZ -[facility] Work Phone: Start: 06-08-2024 End: 06-08-2024 ambulatory VERO MAST Facility:[facility] Start: 06-02-2024 End: 06-02-[address] Ralph Singh MD -Laboratory, Specimen Work Phone: Start: 06-02-2024 End: 06-02-2024 ambulatory VERO MAST Facility:[facility] Start: 05-29-2024 End: 05-29-2024 ambulatory Trena Neff Facility:[facility] Start: 05-29-2024 End: 05-29-2024 ambulatory VERO MAST Facility:[facility] Start: 05-21-2024 End: 05-25-2024 [facility] FL[facility] RADIO OFFICER-SALES ACCOUNT MANAGER Facility:[facility] Start: 05-21-2024 End: 05-21-2024 ambulatory VERO MAST FLIGHT RADIO OFFICER-SALES ACCOUNT MANAGER Facility:[facility] Start: 05-21-2024 End: 05-21-2024 Patient encounter procedure MARYAQUILINO [facility] FLIGHT RADIO OFFICER-SALES ACCOUNT MANAGER [facility] Start: 05-12-2024 End: 05-12-2024 ambulatory VERO MAST Facility:[facility] Start: 05-11-2024 End: 05-11-2024 ambulatory VERO MAST FLIGHT RADIO OFFICER-SALES ACCOUNT MANAGER Facility:[facility] Start: 05-11-2024 End: 05-11-2024 Patient encounter procedure VERO MAST FLIGHT RADIO OFFICER-SALES ACCOUNT MANAGER [facility] Start: 05-09-2024 End: 05-09-2024 ambulatory VERO MAST Facility:[facility] Start: 05-07-2024 End: 05-07-2024 Office outpatient new 60 minutes Blas Rod MD Work Phone: Division of Surgical Oncology Comment on above: Neuroendocrine tumor (Primary Dx) Start: 05-07-2024 End: 05-07-2024 Clinical Support Encounter Blas Rod MD Work Phone: Clinical Lab [facility] [place] [facility] Comment on above: Neuroendocrine tumor Start: 05-07-2024 ambulatory BLAS ROD Facility :[facility] Start: 05-05-2024 End: 05-05-2024 ambulatory VERO MAST FLIGHT RADIO OFFICER-SALES ACCOUNT MANAGER Facility:[facility] Start: 05-05-2024 End: 05-05-2024 Patient encounter procedure VERO MAST FLIGHT RADIO OFFICER-SALES ACCOUNT MANAGER [facility] Start: 04-23-2024 End: 04-23-2024 ambulatory VERO MAST FLIGHT RADIO OFFICER-SALES ACCOUNT MANAGER Facility:[facility] Start: 04-23-2024 End: 04-23-2024 Patient encounter procedure AMADOU CLINTON MD [facility] Start: 04-16-2024 End: 04-16-2024 ambulatory Joseluis Riggins Facility:[facility] Start: 04-16-2024 End: 04-16-2024 ambulatory Abram Becker Facility:[facility] Start: 04-14-2024 End: 04-14-2024 ambulatory VERO MAST Facility:[facility] Start: 04-13-2024 End: 04-17-2024 ambulatory VERO MAST FLIGHT RADIO OFFICER-SALES ACCOUNT MANAGER Facility:[facility] Start: 04-13-2024 End: 04-17-2024 Outreach Lab VERO MAST FLIGHT RADIO OFFICER-SALES ACCOUNT MANAGER [facility] Start: 04-06-2024 ambulatory VERO MAST FLIGHT RADIO OFFICER-SALES ACCOUNT MANAGER Facility:[facility] Start: 04-03-2024 ambulatory Sergo Becker Tressa Granda ility:[facility] Start: 04-03-2024 End: 04-07-2024 Evaluation and management of inpatient Law Trinh Facility:[facility] Start: 03-30-2024 End: 03-30-2024 Emergency department patient visit ALDA ABBASI MD [facility] Start: 03-17-2024 End: 03-21-2024 ambulatory KURT [facility] FLIGHT RADIO OFFICER-SALES ACCOUNT MANAGER Facility:B Start: 03-17-2024 End: 03-21-2024 Outreach Lab KURT [facility] FLIGHT RADIO OFFICER-SALES ACCOUNT MANAGER [facility] Start: 03-16-2024 End: 03-16-2024 Patient encounter procedure [facility] FLIGHT RADIO OFFICER-SALES ACCOUNT MANAGER [facility] Start: 03-16-2024 End: 03-20-2024 ambulatory KURT [facility] FLIGHT RADIO OFFICER-SALES ACCOUNT MANAGER Facility:B Start: 03-16-2024 End: 03-20-2024 Outreach Lab [facility]T [facility] FLIGHT RADIO OFFICER-SALES ACCOUNT MANAGER [facility] Start: 03-12-2024 End: 03-12-2024 ambulatory Jaziel Vidal Facility:[facility] Start: 03-04-2024 ambulatory Hamida Saini [facility] Start: 03-04-2024 End: 03-07-2024 Evaluation and management of inpatient Hamida Saini Facility:[facility] Start: 03-02-2024 End: 03-06-2024 ambulatory VERO MAST FLIGHT RADIO OFFICER-SALES ACCOUNT MANAGER Facility:[facility] Start: 03-02-2024 End: 03-06-2024 Outreach Lab [facility]ERO MAST FLIGHT RADIO OFFICER-SALES ACCOUNT MANAGER [facility] Start: 02-25-2024 End: 02-25-2024 Emergency department patient visit DR URSULA DONATO MD [facility] Start: 02-24-2024 End: 02-28-2024 ambulatory VERO MAST FLIGHT RADIO OFFICER-SALES ACCOUNT MANAGER Facility:[facility] Start: 02-24-2024 End: 02-28-2024 Outreach Lab [facility]ERO MAST FLIGHT RADIO OFFICER-SALES ACCOUNT MANAGER [facility] Start: 02-24-2024 End: 02-28-2024 ambulatory VERO MAST FLIGHT RADIO OFFICER-SALES ACCOUNT MANAGER Facility:[facility] Start: 02-24-2024 End: 02-28-2024 Outreach Lab VERO MAST FLIGHT RADIO OFFICER-SALES ACCOUNT MANAGER [facility] Start: 01-27-2024 End: 01-27-2024 ambulatory VERO MAST Facility:[facility] Start: 01-22-2024 End: 01-22-2024 ambulatory VERO MAST Facility:[facility] Start: 01-14-2024 End: 01-18-2024 ambulatory VERO MAST FLIGHT RADIO OFFICER-SALES ACCOUNT MANAGER Facility:[facility] Start: 01-14-2024 End: 01-18-2024 Outreach Lab VERO MAST FLIGHT RADIO OFFICER-SALES ACCOUNT MANAGER [facility] Start: 12-18-2023 ambulatory Papa sal MD Work Phone: Internal Medicine [place] [id number] Start: 09-16-2023 End: 09-16-2023 ambulatory VERO MAST FLIGHT RADIO OFFICER-SALES ACCOUNT MANAGER Facility:[facility] Start: 09-02-2023 End: 09-02-2023 ambulatory VERO MAST FLIGHT RADIO OFFICER-SALES ACCOUNT MANAGER Facility:[facility] Start: 09-02-2023 End: 09-02-2023 Patient encounter procedure VERO MAST FLIGHT RADIO OFFICER-SALES ACCOUNT MANAGER [facility] Start: 08-19-2023 End: 08-19-2023 ambulatory VERO MAST FLIGHT RADIO OFFICER-SALES ACCOUNT MANAGER Facility:[facility] Start: 07-30-2023 End: 07-30-2023 ambulatory JAZIEL VIDAL TRIMMER HAND-C Facility:[facility] Start: 07-30-2023 End: 07-30-2023 Patient encounter procedure JAZIEL DRAKE TRIMMER HAND-C [facility] Start: 07-26-2023 End: 07-26-2023 ambulatory VERO ORTEZ FLIGHT RADIO OFFICER-SALES ACCOUNT MANAGER Facility:[facility] Start: 07-26-2023 End: 07-26-2023 Patient encounter procedure VERO OTREZ FLIGHT RADIO OFFICER-SALES ACCOUNT MANAGER [facility] Start: 07-02-2023 End: 07-02-2023 Patient [...] 05-28-2023 ambulatory Papa sal MD Work Phone: [facility] Comment on above: Abdominal Pain Start: 05-17-2023 End: 05-17-2023 Admission to establishment Pacc [facility] 1 Work Phone: [facility] Start: 05-17-2023 End: 05-17-2023 ambulatory Pac [place] 1 Work Phone: Pre Anesthesia Comment on [...] examination done Pac [facility] 1 Work Phone: [facility] Work Phone: Start: 05-07-2023 End: 05-07-2023 Patient encounter procedure Yessy White PA-C Work Phone: General Surgery Comment on above: History of colonic p olyps (Primary Dx); Colitis; Encounter for screening colonoscopy Start: 05-03-2023 End: 05-03-2023 Patient encounter procedure Papa Douglass MD Work Phone: [facility] Comment on above: Hospital discharge f ollow-up [...] / Non-visit Dr. Celestina Douglass Work Phone: [facility] Work Phone: Start: 04-18-2023 Non-patient / Non-visit Dr. Celestina Douglass Work Phone: [facility] Work Phone: Start: 04-18-2023 End: 04-20-2023 Evaluation and management of inpatient Dr. Papa Douglass Work Phone: [facility]-Progressive Care Unit Work Phone: Start: 04-17-[address] Papa Douglass Work Phone: [facility]-Laboratory Work Phone: Start: 04-17-2023 End: 04-17-[address] Papa Douglass Work Phone: [facility] Work Phone: Start: 03-05-2023 End: 03-05-2023 Patient encounter procedure Mari Jernigan DO Work Phone: Vascular Surgery Comment on above: Venous (peripheral) insufficiency (Primary Dx); Secondary lymphedema Start: 03-03-2023 Telephone encounter Mela huerta APRN.SALES ACCOUNT MANAGER Work Phone: OB/Gynecology Comment on above: Results Start: 03-01-2023 Telephone encounter Mela huerta APRN.SALES ACCOUNT MANAGER Work Phone: OB/Gynecology Comment on above: Results (Urine); Ord ers Start: 02-28-2023 Telephone encounter Mela huerta APRN.SALES ACCOUNT MANAGER Work Phone: OB/Gynecology Comment on above: UTI Start: 02-26-2023 Telephone encounter Papa pace MD Work Phone: [facility] Comment on above: Results Start: 02-18-2023 End: 02-18-[address] Papa Douglass Work Phone: [facility] Work Phone: Start: 01-20-2023 End: 01-20-2023 [facility] Work [facility] Start: 01-19-2023 End: 01-19-2023 Patient encounter procedure Papa Douglass MD Work Phone: [facility] Comment on above: Pain in both hands [...] 01-07-2023 ambulatory Papa sal MD Work Phone: [facility] Comment on above: high blood sugars Start: 01-07-2023 End: 01-07-2023 [facility] Start: 01-03-2023 Telephone encounter Louis Wang Work Phone: Podiatry Comment on above: Results Start: 12-31-2022 Telephone encounter Papa pace MD Work Phone: [facility] Comment on above: Forms (3 sets of for ms re: disability) Start: 11-29-2022 End: 11-29-2022 Patient encounter procedure Melissa Aly Keron OD Work Phone: Ophthalmology Comment on above: Dry eye syndrome of bilateral lacrimal glands (Primary Dx); Regular astigmatism of both eyes; Presbyopia; Type 2 diabetes mellitus without retinopathy (HCC) Start: 11-20-2022 Refill Papa sal MD Work Phone: [facility] Comment on above: Refill Request Start: 11-16-2022 Orders Only Louis rawls Work Phone: Podiatry Comment on above: Bilateral foot pain (Primary Dx) Start: 11-12-2022 Telephone encounter Papa pace MD Work Phone: [facility] Comment on above: Consult Start: 11-08-2022 Telephone encounter Coco vázquez FLIGHT RADIO OFFICER.SALES ACCOUNT MANAGER Work Phone: [facility] Comment on above: Results (Labs ) Start: 11-06-2022 Telephone encounter Kiley [facility] Work Phone: [facility] Comment on above: Appointment (Primary Care reschedule) Start: 10-29-2022 Telephone encounter Kiley [facility] Work Phone: [facility] Comment on above: Appointment Start: 10-25-2022 Telephone encounter Jonah Naranjo MD Work Phone: [facility] Comment on above: Patient Update Start: 10-25-2022 End: 10-25-2022 [facility] Start: 10-23-2022 Refill Coco Waters FLIGHT RADIO OFFICER.SALES ACCOUNT MANAGER Work Phone: [facility] Comment on above: Refill Request Start: 10-10-2022 End: 10-10-2022 Emergency department patient visit [facility]gency Department Start: 10-08-2022 End: 10-08-2022 ambulatory Kiley [facility] Work Phone: [facility] Comment on above: Type 2 diabetes lyssa itus without complication, with long-term current use of insulin (HCC) (Primary Dx) Start: 10-08-2022 End: 10-08-2022 Telemedicine consultation with patient Kiley [facility] Work Phone: [facility] Start: 10-04-2022 Telephone encounter Papa pace MD Work Phone: [facility] Comment on above: FMLA Paperwork Start: 10-02-2022 Telephone encounter Feliciano wood APRN.ALEXEI Work Phone: [facility] Comment on above: Results Start: 10-01-2022 End: 10-01-2022 Patient encounter procedure Coco Waters APRN.CNP Work Phone: [facility] Comment on above: Bronchitis (Primary Dx); Acute cough; Sore throat; Iron deficiency anemia secondary to inadequate dietary iron intake; Type 2 diabetes mellitus without complication, with long-term current use of insulin (HCC) Start: 09-28-2022 Telephone encounter Coco vázquez APRN.ALEXEI Work Phone: [facility] Comment on above: iron dose Start: 09-27-2022 End: 09-27-2022 Patient encounter procedure Coco Waters APRN.CNP Work Phone: [facility] Comment on above: URI, acute (Primary Dx); [...] 09-21-2022 End: 09-21-2022 [facility] Start: 09-21-2022 End: 09-21-2022 Patient encounter procedure Sabine Elmo LUCIO.SALES ACCOUNT MANAGER Work Phone: [facility] Comment on above: SOB (shortness of br eath) (Primary Dx); Bilateral leg edema Start: 09-17-2022 Telephone encounter Coco Conti gurpreet PRESLEYSALES ACCOUNT MANAGER Work Phone: [facility] Comment on above: Results (Labs ) Start: 09-04-2022 Telephone encounter Dionne jurado MD Work Phone: Allergy Comment on above: Patient Question Start: 09-03-2022 Telephone encounter Mela huerta APRN.SALES ACCOUNT MANAGER Work Phone: OB/Gynecology Comment on above: Results; Clinical Up date Start: 08-31-2022 Telephone encounter Mela huerta APRN.SALES ACCOUNT MANAGER Work Phone: OB/Gynecology Comment on above: Patient Update Start: 08-31-2022 End: 08-31-2022 ambulatory [facility] Work Phone: Start: 08-31-2022 End: 08-31-2022 Patient encounter procedure [facility] Start: 08-30-2022 End: 08-30-2022 Patient encounter procedure Dionne Turner MD Work Phone: Allergy Comment on above: Bcd-gaqb-igndvdw adv erse effect of medication, initial encounter (Primary Dx); Allergy to multiple antibiotics; Nonallergic rhinitis Start: 08-20-2022 Refill Papa sal MD Work Phone: [facility] Comment on above: Refill Request Start: 08-14-2022 Telephone encounter Mela huerta APRN.SALES ACCOUNT MANAGER Work Phone: OB/Gynecology Comment on above: Results Start: 08-12-2022 End: 08-12-2022 [facility] Start: 08-07-2022 End: 08-07-2022 Patient encounter procedure Mela Garcia FLIGHT RADIO OFFICER.SALES ACCOUNT MANAGER Work Phone: OB/Gynecology Comment on above: Urinary tract infect ion with hematuria, site unspecified (Primary Dx) Start: 07-18-2022 Telephone encounter Papa pace MD Work Phone: [facility] Comment on above: Referral report Start: 07-18-2022 End: 07-18-2022 Patient encounter procedure Marissa Fenton FLIGHT RADIO OFFICER.SALES ACCOUNT MANAGER Work Phone: [facility] Comment on above: Bilateral leg edema (Primary Dx) Start: 07-04-2022 Telephone encounter Papa pace MD Work Phone: [address] [place] [address] Comment on above: Patient Question Start: 06-28-2022 End: 06-28-2022 Patient encounter procedure Coco Watesr APRN.SALES ACCOUNT MANAGER Work Phone: [facility] Comment on above: Facial infection (Pr imary Dx); Erysipelas Start: 06-26-2022 End: 06-26-2022 Patient encounter procedure Génesis Zhang PA-C Work Phone: [facility] Comment on above: Viral URI (Primary D x); Facial infection Start: 06-21-2022 End: 06-21-2022 Patient encounter procedure Coco Waters APRN.SALES ACCOUNT MANAGER Work Phone: [facility] Comment on above: Type 2 diabetes lyssa itus without complication, with long-term current use of insulin (HCC) (Primary Dx); Hypothyroidism, unspecified type; Anxiety with depression Start: 06-17-2022 End: 06-17-2022 [facility] Start: 06-15-2022 End: 06-15-2022 Subsequent hospital visit by physician [facility] Work Phone: Radiology Comment on above: Hand injuries, right , initial encounter [S69.91XA] Start: 06-08-2022 End: 06-08-2022 Emergency department patient visit Dr. Papa Douglass Work Phone: [facility]Emergency Department Start: 06-06-2022 Telephone encounter Papa pace MD Work Phone: [facility] [place] Comment on above: Patient Question; Me dication Problem Start: 03-27-2022 End: 03-27-2022 Patient encounter procedure Melissa Cabrales OD Work Phone: Ophthalmology Comment on above: Regular astigmatism of both eyes (Primary Dx); Presbyopia; Dry eye syndrome of bilateral lacrimal glands; Punctate keratitis of right eye; Type 2 diabetes mellitus without retinopathy (HCC) Start: 03-19-2022 End: 03-19-2022 Patient encounter procedure Coco Waters FLIGHT RADIO OFFICER.SALES ACCOUNT MANAGER Work Phone: [facility] Comment on above: Type 2 diabetes lyssa itus without complication, with long-term current use of insulin (HCC) (Primary Dx); Essential hypertension; Hypothyroidism, unspecified type Start: 03-14-2022 End: 03-14-2022 Patient encounter procedure Gretchen Fox FLIGHT RADIO OFFICER.SALES ACCOUNT MANAGER Work Phone: Endocrinology Comment on above: Uncontrolled [...] End: 02-16-2022 Patient encounter procedure Bia Jacinto FLIGHT RADIO OFFICER.SALES ACCOUNT MANAGER Work Phone: [facility] Comment on above: Pharyngitis, unspeci fied etiology (Primary Dx); Rash, skin; Vaginal itching Start: 02-12-2022 Refill Papa sal MD Work Phone: [facility] Comment on above: Refill Request Start: 02-11-2022 Non-patient / Non-visit Dr. Celestina Douglass Work Phone: [facility] Start: 02-10-2022 Non-patient / Non-visit Dr. Celestina Douglass Work Phone: [facility] Start: 02-09-2022 End: 02-11-2022 Evaluation and management of inpatient [facility] Start: 02-08-2022 End: 02-08-2022 Patient encounter procedure Papa Douglass MD Work Phone: [facility] Comment on above: Uncontrolled type 2 diabetes mellitus with hyperglycemia (HCC) (Primary Dx); Hypothyroidism, unspecified type; Anxiety with depression; Mixed hyperlipidemia; Essential hypertension; Anemia, unspecified type; KODI (obstructive sleep apnea); GERD without esophagitis Start: 11-13-2021 End: 11-13-2021 Patient encounter procedure Kiley [facility] Work Phone: [facility] Comment on above: Type 2 diabetes lyssa itus without complication, with long-term current use of insulin (HCC) Start: 11-09-2021 End: 11-09-2021 Patient encounter procedure Papa Douglass MD Work Phone: [facility] Comment on above: Uncontrolled type 2 diabetes mellitus with hyperglycemia (HCC) (Primary Dx) Start: 10-16-2021 End: 10-16-2021 Subsequent hospital visit by physician Xr [facility] Work Phone: Radiology Comment on above: Left hand pain [M79. 642] Start: 10-16-2021 End: 10-16-2021 Patient encounter procedure Sasha Schroeder APRN.SALES ACCOUNT MANAGER Work Phone: [facility] Comment on above: Left hand pain (Prim miriam Dx) Type 2 diabetes lyssa itus without complication, with long-term current use of insulin (HCC) (Primary Dx) Start: 10-09-2021 Refill Louis rawls Work Phone: Podiatry Comment on above: Refill Request Start: 10-09-2021 Telephone encounter Coco Conti nhof FLIGHT RADIO OFFICER.SALES ACCOUNT MANAGER Work Phone: [facility] Comment on above: Results; Orders Procedures Date Procedure Procedure Detail Performing Clinician Start: 12-24-2024 CBC AND ELECTRONIC DIFF Thomas Montero FLIGHT RADIO OFFICER-SALES ACCOUNT MANAGER Work Phone: Start: 12-24-2024 Complete blood count with white cell differential, automated Thomas Winston FLIGHT RADIO OFFICER-SALES ACCOUNT MANAGER Work Phone: Start: 12-24-2024 End: 12-24-2024 Comprehensive metabolic panel Thomas Montero FLIGHT RADIO OFFICER-SALES ACCOUNT MANAGER Work Phone: Start: 11-03-2024 Urnls dip stick/tabl et reagent auto microscopy VERO MAST TANK ASSEMBLER Work Phone: Start: 11-03-2024 Estimated creatinine clearance VERO MAST TANK ASSEMBLER Work Phone: Start: 11-03-[address]ERO MA ST TANK ASSEMBLER Work Phone: Start: 09-30-2024 X-ray of foot, three or more views VERO MAST TANK ASSEMBLER Work Phone: Start: 09-03-2024 End: 09-03-2024 Glucose measurement, blood Blas Merrill MD Work Phone: Start: 09-03-2024 INTERVENTIONAL UPPER ENDOSCOPY Blas Merrill MD Work Phone: Start: 09-03-2024 Glucose measurement, blood Blas Merrill MD Work Phone: Start: 07-30-2024 Follow-up visit Follow-up BLAS ROD Start: 07-30-[address] atten uation skull base mid-thigh Karolina Piedra FLIGHT RADIO OFFICER-SALES ACCOUNT MANAGER, DNP Work Phone: Start: 07-24-2024 Ultrasound elastogra phy of liver VERO MAST TANK ASSEMBLER Work Phone: Start: 06-23-2024 UPPER EUS Karolina Piedra FLIGHT RADIO OFFICER-SALES ACCOUNT MANAGER, DNP Work Phone: Start: 06-23-2024 Glucose measurement, blood Blas Merrill MD Work Phone: Start: 06-16-2024 Radionuclide gastric emptying study VERO HASTINGS Work Phone: Start: 05-07-2024 CBC AND ELECTRONIC DIFF Karolina Shay Tadeo FLIGHT RADIO OFFICER-SALES ACCOUNT MANAGER, DNP Work Phone: Start: 05-07-2024 Complete blood count with white cell differential, automated Karolina Shay Tadeo FLIGHT RADIO OFFICER-SALES ACCOUNT MANAGER, DNP Work Phone: Start: 05-07-2024 Comprehensive metabo lic panel Karolina Shay Tadeo FLIGHT RADIO OFFICER-SALES ACCOUNT MANAGER, DNP Work Phone: Start: 07-02-2023 Clsr geoffrey [...] Work Phone: Start: 11-12-2022 Mammography Coco vázquez FLIGHT RADIO OFFICER.SALES ACCOUNT MANAGER Work Phone: Start: 10-25-2022 Plain chest X-ray Start: 10-10-2022 Urine culture Start: 10-01-2022 STREP A MOLECULAR (POC) Coco Waters FLIGHT RADIO OFFICER.SALES ACCOUNT MANAGER Work Phone: Start: 09-21-2022 Plain chest X-ray [...] et rgnt auto w/o microscopy Mela Garcia FLIGHT RADIO OFFICER.SALES ACCOUNT MANAGER Work Phone: Start: 06-17-2022 Plain x-ray of hand Start: 06-15-2022 Radex hand minimum 3 views Ravinder Cervantes FLIGHT RADIO OFFICER.SALES ACCOUNT MANAGER Work Phone: Start: 02-27-2022 Computerized ophthal shaheen imaging retina Melissa Aly Keron OD Work Phone: Start: 02-16-2022 Gluc bld gluc mntr d ev cleared fda spec home use [facility] Provider Start: 10-16-2021 Radex hand minimum 3 views Sasha Alexandre FLIGHT RADIO OFFICER.SALES ACCOUNT MANAGER Work Phone: Start: 10-09-2021 Mammography Coco Conti meof FLIGHT RADIO OFFICER.SALES ACCOUNT MANAGER Work Phone: Start: 01-11-2021 Adult depression scr eening assessment Coco Waters FLIGHT RADIO OFFICER.SALES ACCOUNT MANAGER Work Phone: Start: 02-24-2018 Colonoscopy Coco Conti meof FLIGHT RADIO OFFICER.SALES ACCOUNT MANAGER Work Phone: Bacteria identified in Blood by Culture Dr. Papa Douglass Work Phone: Cholecystectomy KURT BLUM OVER FLIGHT RADIO OFFICER-SALES ACCOUNT MANAGER Urine culture Dr. Papa hre Work Phone: Urine culture Plan of Treatment Date Care Activity Detail Author Start: 09-02-2034 Tetanus vaccination [facility] Start: 06-06-2028 Tetanus vaccination [facility] Start: 06-06-2028 Urine microalbumin profile [facility] Start: 06-23-2025 End: 12-31-2025 Complete blood count with white cell differential, automated CBC, EDIF, PLATELET Lab Routine Neuroendocrine neoplasm of stomach Neuroendocrine cancer Expected: 06/23/2025 (Approximate), Expires: 12/31/2025 [facility] Comment on above: Expected: 06/23/2025 (Approximate), Expi res: 12/31/2025 Start: 06-23-2025 End: 12-31-2025 Comprehensive metabolic 2000 panel - Serum or Plasma COMPREHENSIVE METABOLIC PANEL Lab Routine Neuroendocrine neoplasm of stomach Neuroendocrine cancer Expected: 06/23/2025 (Approximate), Expires: 12/31/2025 [facility] Comment on above: Expected: 06/23/2025 (Approximate), Expi res: 12/31/2025 Start: 06-23-2025 End: 12-31-2025 CT Abdomen and Pelvis WO and W contrast IV CT ABDOMEN/PELVIS WITH AND WITHOUT CONTRAST Imaging Routine Neuroendocrine neoplasm of stomach Neuroendocrine cancer Expected: 06/23/2025 (Approximate), Expires: 12/31/2025 [facility] Comment on above: Expected: 06/23/2025 (Approximate), Expi res: 12/31/2025 Start: 06-23-2025 End: 12-31-2025 CT Chest W contrast IV CT CHEST WITH CONTRAST Imaging Routine Neuroendocrine neoplasm of stomach Neuroendocrine cancer Expected: 06/23/2025 (Approximate), Expires: 12/31/2025 [facility] Comment on above: Expected: 06/23/2025 (Approximate), Expi res: 12/31/2025 Start: 06-23-2025 End: 12-31-2025 Lactate dehydrogenase [Enzymatic activity/volume] in Serum or Plasma LACTATE DEHYDROGENASE Lab Routine Neuroendocrine neoplasm of stomach Neuroendocrine cancer Expected: 06/23/2025 (Approximate), Expires: 12/31/2025 [facility] Comment on above: Expected: 06/23/2025 (Approximate), Expi res: 12/31/2025 Start: 04-19-2025 End: 04-19-2025 Patient encounter procedure 04/19/2025 4:00 PM EDT Appointment [facility] [address] [place] [phone] Natalya Guerin MD [address] [place] [address] [facility] Start: 12-31-2024 End: 12-31-2024 Patient encounter procedure 12/31/2024 1:30 PM EDT Office Visit Division of Medical Oncology [address] [place] [phone] Scott Berrios MD, MPH [address] [place] [phone] Division of Medical Oncology Start: 12-24-2024 End: 12-24-2024 Patient encounter procedure 12/24/2024 2:45 PM EDT Appointment Imaging [facility] [address] [place] [phone] Scott Berrios MD, MPH [address] [facility] [place] [phone] Imaging [facility] Start: 12-24-2024 End: 09-04-2025 [facility] Comment on above: Expected: 12/24/2024, Expires: Start: 12-24-2024 End: 09-04-2025 Complete blood count with white cell differential, automated CBC, EDIF, PLATELET Lab Routine Neuroendocrine cancer Expected: 12/24/2024, Expires: 09/04/2025 [facility] Comment on above: Expected: 12/24/2024, Expires: Start: 12-24-2024 End: 09-04-2025 Comprehensive metabolic 2000 panel - Serum or Plasma COMPREHENSIVE METABOLIC PANEL Lab Routine Neuroendocrine cancer Expected: 12/24/2024, Expires: 09/04/2025 [facility] Comment on above: Expected: 12/24/2024, Expires: Start: 12-24-2024 End: 09-04-2025 Lactate dehydrogenase [Enzymatic activity/volume] in Serum or Plasma LACTATE DEHYDROGENASE Lab Routine Neuroendocrine cancer Expected: 12/24/2024, Expires: 09/04/2025 [facility] Comment on above: Expected: 12/24/2024, Expires: Start: 12-24-2024 End: 09-04-2025 METHYLMALONIC ACID METHYLMALONIC ACID Lab Routine Neuroendocrine cancer Expected: 12/24/2024, Expires: 09/04/2025 [facility] Comment on above: Expected: 12/24/2024, Expires: Start: 12-24-2024 End: 12-24-2024 Clinical Support Encounter 12/24/2024 1:30 PM EDT Clinical Support Encounter Clinical Lab [facility] [address] [place] [phone] Scott Berrios MD, MPH [address] [place] [phone] Clinical Lab [facility] 1 Start: 11-03-2024 End: 11-03-2024 [facility] Start: 10-06-2024 Walking distance 6 minutes [facility] Start: 10-05-2024 Measurement of respiratory function [facility] Start: 09-30-2024 [facility] Start: 09-03-2024 End: 09-03-2024 Patient encounter procedure [facility] Start: 08-27-2024 End: 08-27-2024 Patient encounter procedure 08/27/2024 3:00 PM EST Office Visit Division of Medical Oncology [address] [place] [phone] Scott Berrios MD, MPH [address] [phone] Division of Medical Oncology Start: 08-14-2024 End: 08-14-2024 Patient encounter procedure 08/14/2024 3:15 PM EST Appointment [facility] [address] [place] [address] Scott Berrios MD, MPH [address] [phone] [facility] Start: 08-14-2024 End: 07-30-2025 ANTI PARIETAL ANTIBODY ANTI PARIETAL ANTIBODY Lab Routine Neuroendocrine neoplasm of stomach Expected: 08/14/2024, Expires: 07/30/2025 [facility] Comment on above: Expected: 08/14/2024, Expires: Start: 08-14-2024 End: 07-30-2025 CALCITONIN CALCITONIN Lab Routine Neuroendocrine neoplasm of stomach Expected: 08/14/2024, Expires: 07/30/2025 [facility] Comment on above: Expected: 08/14/2024, Expires: Start: 08-14-2024 End: 07-31-2025 CHROMOGRANIN A [facility] Comment on above: Expected: 08/14/2024, Expires: Expected: 08/14/2024 , Expires: 07/31/2025 Start: 08-14-2024 End: 07-30-2025 Complete blood count with white cell differential, automated CBC, EDIF, PLATELET Lab Routine Neuroendocrine neoplasm of stomach Expected: 08/14/2024, Expires: 07/30/2025 [facility] Comment on above: Expected: 08/14/2024, Expires: Start: 08-14-2024 End: 07-30-2025 Comprehensive metabolic 2000 panel - Serum or Plasma COMPREHENSIVE METABOLIC PANEL Lab Routine Neuroendocrine neoplasm of stomach Expected: 08/14/2024, Expires: 07/30/2025 [facility] Comment on above: Expected: 08/14/2024, Expires: Start: 08-14-2024 End: 07-30-2025 Cyanocobalamin vitamin b-12 VITAMIN B12 Lab Routine Neuroendocrine neoplasm of stomach Expected: 08/14/2024, Expires: 07/30/2025 [facility] Comment on above: Expected: 08/14/2024, Expires: Start: 08-14-2024 End: 07-30-2025 GASTRIN - NON-STIMULATED GASTRIN - NON-STIMULATED Lab Routine Neuroendocrine neoplasm of stomach Expected: 08/14/2024, Expires: 07/30/2025 [facility] Comment on above: Expected: 08/14/2024, Expires: Start: 08-14-2024 End: 07-30-2025 INTRINSIC FACTOR ANTIBODY INTRINSIC FACTOR ANTIBODY Lab Routine Neuroendocrine neoplasm of stomach Expected: 08/14/2024, Expires: 07/30/2025 [facility] Comment on above: Expected: 08/14/2024, Expires: Start: 08-14-2024 End: 07-30-2025 Lactate dehydrogenase [Enzymatic activity/volume] in Serum or Plasma LACTATE DEHYDROGENASE Lab Routine Neuroendocrine neoplasm of stomach Expected: 08/14/2024, Expires: 07/30/2025 [facility] Comment on above: Expected: 08/14/2024, Expires: Start: 08-14-2024 End: 07-30-2025 METHYLMALONIC ACID METHYLMALONIC ACID Lab Routine Neuroendocrine neoplasm of stomach Expected: 08/14/2024, Expires: 07/30/2025 [facility] Comment on above: Expected: 08/14/2024, Expires: Start: 08-14-2024 End: 07-30-2025 PANCREATIC POLYPEPTIDE PANCREATIC POLYPEPTIDE Lab Routine Neuroendocrine neoplasm of stomach Expected: 08/14/2024, Expires: 07/30/2025 [facility] Comment on above: Expected: 08/14/2024, Expires: Start: 08-14-2024 End: 07-30-2025 PTH INTACT PTH INTACT Lab Routine Neuroendocrine neoplasm of stomach Expected: 08/14/2024, Expires: 07/30/2025 [facility] Comment on above: Expected: 08/14/2024, Expires: Start: 08-13-2024 End: 07-30-2025 ANTI PARIETAL ANTIBODY ANTI PARIETAL ANTIBODY Lab Routine Neuroendocrine neoplasm of stomach Expected: 08/13/2024, Expires: 07/30/2025 [facility] Comment on above: Expected: 08/13/2024, Expires: Start: 08-13-2024 End: 07-30-2025 CALCITONIN CALCITONIN Lab Routine Neuroendocrine neoplasm of stomach Expected: 08/13/2024, Expires: 07/30/2025 [facility] Comment on above: Expected: 08/13/2024, Expires: Start: 08-13-2024 End: 07-30-2025 CHROMOGRANIN A [facility] Comment on above: Expected: 08/13/2024, Expires: Expected: 08/13/2024 (Approximate), Expires: 07/30/2025 Start: 08-13-2024 End: 07-30-2025 Complete blood count with white cell differential, automated CBC, EDIF, PLATELET Lab Routine Neuroendocrine neoplasm of stomach Expected: 08/13/2024, Expires: 07/30/2025 [facility] Comment on above: Expected: 08/13/2024, Expires: Start: 08-13-2024 End: 07-30-2025 Comprehensive metabolic 2000 panel - Serum or Plasma COMPREHENSIVE METABOLIC PANEL Lab Routine Neuroendocrine neoplasm of stomach Expected: 08/13/2024, Expires: 07/30/2025 [facility] Comment on above: Expected: 08/13/2024, Expires: Start: 08-13-2024 End: 07-30-2025 Cyanocobalamin vitamin b-12 VITAMIN B12 Lab Routine Neuroendocrine neoplasm of stomach Expected: 08/13/2024, Expires: 07/30/2025 [facility] Comment on above: Expected: 08/13/2024, Expires: Start: 08-13-2024 End: 07-30-2025 GASTRIN - NON-STIMULATED GASTRIN - NON-STIMULATED Lab Routine Neuroendocrine neoplasm of stomach Expected: 08/13/2024, Expires: 07/30/2025 [facility] Comment on above: Expected: 08/13/2024, Expires: Start: 08-13-2024 End: 07-30-2025 INTRINSIC FACTOR ANTIBODY INTRINSIC FACTOR ANTIBODY Lab Routine Neuroendocrine neoplasm of stomach Expected: 08/13/2024, Expires: 07/30/2025 [facility] Comment on above: Expected: 08/13/2024, Expires: Start: 08-13-2024 End: 07-30-2025 Lactate dehydrogenase [Enzymatic activity/volume] in Serum or Plasma LACTATE DEHYDROGENASE Lab Routine Neuroendocrine neoplasm of stomach Expected: 08/13/2024, Expires: 07/30/2025 [facility] Comment on above: Expected: 08/13/2024, Expires: Start: 08-13-2024 End: 07-30-2025 METHYLMALONIC ACID METHYLMALONIC ACID Lab Routine Neuroendocrine neoplasm of stomach Expected: 08/13/2024, Expires: 07/30/2025 [facility] Comment on above: Expected: 08/13/2024, Expires: Start: 08-13-2024 End: 07-30-2025 PANCREATIC POLYPEPTIDE PANCREATIC POLYPEPTIDE Lab Routine Neuroendocrine neoplasm of stomach Expected: 08/13/2024, Expires: 07/30/2025 [facility] Comment on above: Expected: 08/13/2024, Expires: Start: 08-13-2024 End: 07-30-2025 PTH INTACT PTH INTACT Lab Routine Neuroendocrine neoplasm of stomach Expected: 08/13/2024, Expires: 07/30/2025 [facility] Comment on above: Expected: 08/13/2024, Expires: Start: 08-12-2024 Subsequent hospital visit by physician 08/12/2024 9:00 PM EST Hospital Encounter Imaging [facility] [address] [place] [address] Scott Berrios MD, MPH [address] [place] [phone] Imaging [facility] Start: 07-30-2024 End: 07-30-2025 CT Abdomen and Pelvis WO and W contrast IV CT ABDOMEN/PELVIS WITH AND WITHOUT CONTRAST Imaging Routine Neuroendocrine neoplasm of stomach Neuroendocrine cancer Expected: 07/30/2024, Expires: 07/30/2025 [facility] Comment on above: Expected: 07/30/2024, Expires: Start: 07-29-2024 Colonoscopy w/biopsy single/multiple COLONOSCOPY AND BIOPSY [facility] Start: 07-29-2024 Patient discharge [facility] Start: 07-09-2024 End: 07-09-2024 Telemedicine consultation with patient 07/09/2024 12:45 PM EST Telemedicine Division of Surgical Oncology [address] [place] [address] Blas Rod MD [address] [place] [address] Division of Surgical Oncology Start: 07-02-2024 End: 07-02-2024 Patient encounter procedure 07/02/2024 9:30 AM EST Appointment [facility] [address] [place] [phone] Karolina Piedra, FLIGHT RADIO OFFICER-SALES ACCOUNT MANAGER, DNP [address] [place] [address] [facility] Start: 07-02-2024 Subsequent hospital visit by physician 07/02/2024 9:30 AM EST Hospital Encounter [facility] [address] [place] [address] Karolina Piedra APRN-SALES ACCOUNT MANAGER, DNP [address] [place] [address] [facility] Start: 06-23-2024 End: 06-23-2025 INTERVENTIONAL UPPER ENDOSCOPY INTERVENTIONAL UPPER ENDOSCOPY GI/Bronch Routine Neuroendocrine tumor Expected: 06/23/2024, Expires: 06/23/2025 [facility] Comment on above: Expected: 06/23/2024, Expires: Start: 06-02-2024 End: 06-02-2024 Patient encounter procedure 06/02/2024 9:40 AM EST Office Visit [facility] [address] [facility] [place] [address] Darcie Logan PA-C [address] [facility] [place] [address] Colonoscopy screen consult [facility] Comment on [...] Routine Neuroendocrine tumor Expected: 05/07/2024, Expires: 05/07/2025 [facility] Comment on above: Expected: 05/07/2024, Expires: Start: 05-07-2024 End: 05-07-2025 UPPER EUS UPPER EUS GI/Bronch Routine Neuroendocrine tumor Expected: 05/07/2024, Expires: 05/07/2025 [facility] Comment on above: Expected: 05/07/2024, Expires: Start: 05-05-2024 End: 05-05-2025 CHROMOGRANIN A CHROMOGRANIN A Lab Routine Neuroendocrine tumor Expected: 05/05/2024, Expires: 05/05/2025 [facility] Comment on above: Expected: 05/05/2024, Expires: Start: 05-05-2024 End: 05-05-2025 GASTRIN - NON-STIMULATED GASTRIN - NON-STIMULATED Lab Routine Neuroendocrine tumor Expected: 05/05/2024, Expires: 05/05/2025 [facility] Comment on above: Expected: 05/05/2024, Expires: Start: 05-03-2024 3 comp foot exam completed Diabetic Foot Exam [facility] Start: 05-03-2024 Annual PCP Team Chronic Disease Visit Annual PCP Team Chronic Disease Visit [facility] Start: 05-03-2024 BP Controlled (<130/80) BP Controlled (<130/80) [facility] Start: 05-03-2024 Diabetic foot examination Diabetic Foot Exam [facility] Start: 04-17-2024 Hepatitis B surface antibody level LDL Cholesterol [facility] Start: 04-16-2024 BP Controlled (<130/80) BP Controlled (<130/80) [facility] Start: 03-22-2024 COVID-19 VACCINE ( season) COVID-19 VACCINE () [facility] Start: 03-22-2024 COVID-19 VACCINE ( season) COVID-19 VACCINE ( season) [facility] Start: 03-22-2024 Covid-19 Vaccine ( season) Covid-19 Vaccine ( season) [facility] Start: 03-22-2024 Influenza vaccination [facility] Start: 03-05-2024 BP CONTROLLED (<130/80) BP CONTROLLED (<130/80) [facility] Start: 03-02-2024 End: 03-02-2024 Patient encounter procedure 03/02/2024 1:45 PM EDT Office Visit [facility] [address] [place] [address] Melissa Cabrales, OD [address] [address] diabetic eye exam with dry eye follow-up . Ophthalmology Comment on above: diabetic eye exam with dry eye follow-up . Start: 03-01-2024 Glaucoma screening Dilated Retinal Exam [facility] Start: 03-01-2024 Hepatitis C antibody, confirmatory test DILATED RETINAL EXAM [facility] Start: 02-16-2024 Hepatitis B surface antibody level LDL CHOLESTEROL [facility] Start: 01-20-2024 ANNUAL PCP TEAM CHRONIC DISEASE VISIT ANNUAL PCP TEAM CHRONIC DISEASE VISIT [facility] Start: 01-20-2024 BP CONTROLLED (<130/80) BP CONTROLLED (<130/80) [facility] Start: 11-13-2023 Mammography [facility] Start: 11-13-2023 Screening for malignant neoplasm of breast [facility] Start: 11-07-2023 ANNUAL PCP TEAM CHRONIC DISEASE VISIT ANNUAL PCP TEAM CHRONIC DISEASE VISIT [facility] Start: 11-07-2023 BP CONTROLLED (<130/80) BP CONTROLLED (<130/80) [facility] Start: 10-02-2023 ANNUAL PCP TEAM CHRONIC DISEASE VISIT ANNUAL PCP TEAM CHRONIC DISEASE VISIT [facility] Start: 10-02-2023 BP CONTROLLED (<130/80) BP CONTROLLED (<130/80) [facility] Start: 09-28-2023 ANNUAL PCP TEAM CHRONIC DISEASE VISIT ANNUAL PCP TEAM CHRONIC DISEASE VISIT [facility] Start: 09-28-2023 BP CONTROLLED (<130/80) BP CONTROLLED (<130/80) [facility] Start: 09-22-2023 BP CONTROLLED (<130/80) BP CONTROLLED (<130/80) [facility] Start: 08-31-2023 Hepatitis B screening URINE ALBUMIN:CREATININE RATIO [facility] Start: 08-31-2023 Hepatitis B surface antibody level LDL CHOLESTEROL [facility] Start: 08-30-2023 BP CONTROLLED (<130/80) BP CONTROLLED (<130/80) [facility] Start: 08-07-2023 BP CONTROLLED (<130/80) BP CONTROLLED (<130/80) [facility] Start: 07-22-2023 Behavioral Health Screening Behavioral Health Screening [facility] Start: 07-18-2023 ANNUAL PCP TEAM CHRONIC DISEASE VISIT ANNUAL PCP TEAM CHRONIC DISEASE VISIT [facility] Start: 06-28-2023 ANNUAL PCP TEAM CHRONIC DISEASE VISIT ANNUAL PCP TEAM CHRONIC DISEASE VISIT [facility] Start: 06-28-2023 BP CONTROLLED (<130/80) BP CONTROLLED (<130/80) [facility] Start: 06-26-2023 BP CONTROLLED (<130/80) BP CONTROLLED (<130/80) [facility] Start: 06-21-2023 ANNUAL PCP TEAM CHRONIC DISEASE VISIT ANNUAL PCP TEAM CHRONIC DISEASE VISIT [facility] Start: 06-21-2023 BP CONTROLLED (<130/80) BP CONTROLLED (<130/80) [facility] Start: 06-03-2023 End: 08-03-2023 Basic metabolic 2000 panel - Serum or Plasma BASIC METABOLIC PNL Lab Routine Type 2 diabetes mellitus without complication, with long-term current use of insulin (HCC) Stage 3 chronic kidney disease, unspecified whether stage 3a or 3b CKD (HCC) Expected: 06/03/2023 (Approximate), Expires: 08/03/2023 [facility] Work Phone: Comment on above: Expected: 06/03/2023 (Approximate), Expi res: 08/03/2023 Start: 05-21-2023 Hemoglobin A1c measurement HbA1C [facility] Start: 05-21-2023 Hemoglobin A1c/Hemoglobin.total in Blood HBA1C [facility] Start: 04-20-2023 Patient discharge [facility] Start: 04-19-2023 [facility] Start: 04-19-2023 [facility] Start: 04-18-2023 Following clinical pathway protocol [facility] Start: 04-18-2023 Application of elastic bandage [facility] Start: 04-18-2023 Assessment of risk of venous thromboembolism [facility] Start: 04-18-2023 Care regimes management [facility] Start: 04-18-2023 Catheterization of vein [facility] Start: 04-18-2023 Elevation of affected extremity [facility] Start: 04-18-2023 Incentive spirometry [facility] Start: 04-18-2023 Inhalation therapy procedure [facility] Start: 04-18-2023 Insertion of catheter into peripheral vein [facility] Start: 04-18-2023 Measuring intake and output [facility] Start: 04-18-2023 Notification of physician [facility] Start: 04-18-2023 Oxygen therapy [facility] Start: 04-18-2023 Patient education [facility] Start: 04-18-2023 Patient referral to dietitian [facility] Start: 04-18-2023 Providing care according to standard [facility] Start: 04-18-2023 Provision of activity privileges [facility] Start: 04-18-2023 Referral to service [facility] Start: 04-18-2023 [facility] Start: 04-18-2023 Admission procedure [facility] Start: 03-22-2023 Covid-19 Vaccine () Covid-19 Vaccine () [facility] Start: 03-22-2023 Influenza vaccination [facility] Start: 03-19-2023 ANNUAL PCP TEAM CHRONIC DISEASE VISIT ANNUAL PCP TEAM CHRONIC DISEASE VISIT [facility] Start: 03-19-2023 BP CONTROLLED (<130/80) BP CONTROLLED (<130/80) [facility] Start: 03-14-2023 BP CONTROLLED (<130/80) BP CONTROLLED (<130/80) [facility] Start: 03-12-2023 Hepatitis B surface antibody level LDL CHOLESTEROL [facility] Start: 02-28-2023 End: 04-30-2023 Bacteria identified in Urine by Culture [facility] Work Phone: Comment on above: Expected: 02/28/2023, Expires: 3 Start: 02-28-2023 End: 04-30-2023 Urinalysis complete panel - Urine [facility] Work Phone: Comment on above: Expected: 02/28/2023, Expires: 3 Start: 02-27-2023 Hepatitis C antibody, confirmatory test DILATED RETINAL EXAM [facility] Start: 02-24-2023 Colonoscopy COLONOSCOPY [facility] Start: 02-24-2023 COLORECTAL CANCER SCREENING COLORECTAL CANCER SCREENING [facility] Start: 02-24-2023 Screening for malignant neoplasm of colon [facility] Start: 02-19-2023 End: 04-21-2023 Comprehensive metabolic 2000 panel - Serum or Plasma COMP METABOLIC PANEL Lab Routine Mixed hyperlipidemia Uncontrolled type 2 diabetes mellitus with hyperglycemia (HCC) Expected: 02/19/2023 (Approximate), Expires: 04/21/2023 [facility] Work Phone: Comment on above: Expected: 02/19/2023 (Approximate), Expi res: 04/21/2023 Start: 02-19-2023 End: 04-21-2023 Hemoglobin A1c in Blood HGB A1C Lab Routine Uncontrolled type 2 diabetes mellitus with hyperglycemia (HCC) Expected: 02/19/2023 (Approximate), Expires: 04/21/2023 [facility] Work Phone: Comment on above: Expected: 02/19/2023 (Approximate), Expi res: 04/21/2023 Start: 02-19-2023 End: 04-21-2023 Lipid 1996 panel - Serum or Plasma LIPID PANEL BASIC Lab Routine Mixed hyperlipidemia Uncontrolled type 2 diabetes mellitus with hyperglycemia (HCC) Expected: 02/19/2023 (Approximate), Expires: 04/21/2023 [facility] Work Phone: Comment on above: Expected: 02/19/2023 (Approximate), Expi res: 04/21/2023 Start: 02-16-2023 BP CONTROLLED (<130/80) BP CONTROLLED (<130/80) [facility] Start: 02-08-2023 ANNUAL PCP TEAM CHRONIC DISEASE VISIT ANNUAL PCP TEAM CHRONIC DISEASE VISIT [facility] Start: 02-08-2023 BP CONTROLLED (<130/80) BP CONTROLLED (<130/80) [facility] Start: 01-20-2023 [facility] Start: 01-20-2023 Bacteria identified in Urine by Culture Urine Culture [facility] Start: 12-25-2022 Hemoglobin A1c/Hemoglobin.total in Blood HBA1C [facility] Start: 11-22-2022 HPV TESTING HPV TESTING [facility] Start: 11-22-2022 PAP TESTING PAP TESTING [facility] Start: 11-22-2022 Screening for malignant neoplasm of cervix [facility] Start: 11-09-2022 ANNUAL PCP TEAM CHRONIC DISEASE VISIT ANNUAL PCP TEAM CHRONIC DISEASE VISIT [facility] Start: 10-28-2022 End: 12-28-2022 25-hydroxyvitamin D3 [Mass/volume] in Serum or Plasma VITAMIN D 25 HYDROXY Lab Routine Vitamin D deficiency Expected: 10/28/2022, Expires: 12/28/2022 [facility] Work Phone: Comment on above: Expected: 10/28/2022, Expires: Start: 10-28-2022 End: 12-28-2022 CBC W Auto Differential panel - Blood CBC + DIFF Lab Routine Iron deficiency anemia secondary to inadequate dietary iron intake Expected: 10/28/2022, Expires: 12/28/2022 [facility] Work Phone: Comment on above: Expected: 10/28/2022, Expires: Start: 10-28-2022 End: 12-28-2022 Ferritin [Mass/volume] in Serum or Plasma FERRITIN BLD Lab Routine Iron deficiency anemia secondary to inadequate dietary iron intake Expected: 10/28/2022, Expires: 12/28/2022 [facility] Work Phone: Comment on above: Expected: 10/28/2022, Expires: Start: 10-28-2022 End: 12-28-2022 Iron and Iron binding capacity panel - Serum or Plasma IRON + TIBC Lab Routine Iron deficiency anemia secondary to inadequate dietary iron intake Expected: 10/28/2022, Expires: 12/28/2022 [facility] Work Phone: Comment on above: Expected: 10/28/2022, Expires: 3 Start: 10-28-2022 End: 12-28-2022 Thyrotropin [Units/volume] in Serum or Plasma TSH BLD Lab Routine Hypothyroidism, unspecified type Expected: 10/28/2022, Expires: 12/28/2022 [facility] Work Phone: Comment on above: Expected: 10/28/2022, Expires: 3 Start: 10-28-2022 End: 12-28-2022 Thyroxine (T4) free [Mass/volume] in Serum or Plasma T4 FREE/FREE THYROX Lab Routine Hypothyroidism, unspecified type Expected: 10/28/2022, Expires: 12/28/2022 [facility] Work Phone: Comment on above: Expected: 10/28/2022, Expires: 3 Start: 10-25-2022 [facility] Start: 10-16-2022 BP CONTROLLED (<130/80) BP CONTROLLED (<130/80) [facility] Start: 10-10-2022 [facility] Start: 10-09-2022 Mammography MAMMOGRAM [facility] Start: 10-06-2022 ANNUAL PCP TEAM CHRONIC DISEASE VISIT ANNUAL PCP TEAM CHRONIC DISEASE VISIT [facility] Start: 10-06-2022 Hepatitis B surface antibody level LDL CHOLESTEROL [facility] Start: 09-21-2022 [facility] Start: 09-19-2022 End: 11-19-2022 Comprehensive metabolic 2000 panel - Serum or Plasma COMP METABOLIC PANEL Lab Routine Type 2 diabetes mellitus without complication, with long-term current use of insulin ([facility]) Expected: 09/19/2022, Expires: 11/19/2022 [facility] Work Phone: Comment on above: Expected: 09/19/2022, Expires: 3 Start: 09-19-2022 End: 11-19-2022 Hemoglobin A1c in Blood HGB A1C Lab Routine Type 2 diabetes mellitus without complication, with long-term current use of insulin ([facility]) Expected: 09/19/2022, Expires: 11/19/2022 [facility] Work Phone: Comment on above: Expected: 09/19/2022, Expires: 3 Start: 09-15-2022 Hemoglobin A1c/Hemoglobin.total in Blood HBA1C [facility] Start: 08-31-2022 End: 10-31-2022 Bacteria identified in Urine by Culture [facility] Work Phone: Comment on above: Expected: 08/31/2022, Expires: 3 Start: 08-31-2022 Iv infusion therapy/prophylaxis /dx 1st to 1 hr THER/PROPH/DIAG IV INF INIT [facility] Start: 08-22-2022 End: 10-22-2022 ALBUMIN/CREAT RATIO RND UR ALBUMIN/CREAT RATIO RND UR Lab Routine Uncontrolled type 2 diabetes mellitus with hyperglycemia (HCC) Expected: 08/22/2022, Expires: 10/22/2022 [facility] Work Phone: Comment on above: Expected: 08/22/2022, Expires: Start: 08-22-2022 End: 10-22-2022 Comprehensive metabolic 2000 panel - Serum or Plasma COMP METABOLIC PANEL Lab Routine Uncontrolled type 2 diabetes mellitus with hyperglycemia (HCC) Expected: 08/22/2022, Expires: 10/22/2022 [facility] Work Phone: Comment on above: Expected: 08/22/2022, Expires: Start: 08-22-2022 End: 10-22-2022 Hemoglobin A1c in Blood HGB A1C Lab Routine Uncontrolled type 2 diabetes mellitus with hyperglycemia (HCC) Expected: 08/22/2022, Expires: 10/22/2022 [facility] Work Phone: Comment on above: Expected: 08/22/2022, Expires: Start: 08-22-2022 End: 10-22-2022 LIPID PANEL, NONFASTING LIPID PANEL, NONFASTING Lab Routine Uncontrolled type 2 diabetes mellitus with hyperglycemia (HCC) Expected: 08/22/2022, Expires: 10/22/2022 [facility] Work Phone: Comment on above: Expected: 08/22/2022, Expires: 3 Start: 07-22-2022 DEPRESSION ASSESSMENT DEPRESSION ASSESSMENT [facility] Start: 07-22-2022 End: 09-21-2022 Thyrotropin [Units/volume] in Serum or Plasma TSH BLD Lab Routine Hypothyroidism, unspecified type Expected: 07/22/2022, Expires: 09/21/2022 [facility] Work Phone: Comment on above: Expected: 07/22/2022, Expires: 3 Start: 07-22-2022 End: 09-21-2022 Thyroxine (T4) free [Mass/volume] in Serum or Plasma T4 FREE/FREE THYROX Lab Routine Hypothyroidism, unspecified type Expected: 07/22/2022, Expires: 09/21/2022 [facility] Work Phone: Comment on above: Expected: 07/22/2022, Expires: 3 Start: 06-26-2022 End: 07-10-2022 Influenza virus A and B RNA and SARS-CoV-2 (COVID-19) N gene panel - Respiratory specimen by [place] with probe detection [facility] Work Phone: Comment on above: Expected: 06/26/2022, Expires: 2 Start: 06-12-2022 Hemoglobin A1c/Hemoglobin.total in Blood HBA1C [facility] Start: 04-25-2022 End: 06-25-2022 Hemoglobin A1c in Blood HGB A1C Lab Routine Uncontrolled type 2 diabetes mellitus with hyperglycemia (HCC) Hypothyroidism, unspecified type Expected: 04/25/2022, Expires: 06/25/2022 [facility] Work Phone: Comment on above: Expected: 04/25/2022, Expires: 2 Start: 04-25-2022 End: 06-25-2022 Thyrotropin [Units/volume] in Serum or Plasma TSH BLD Lab Routine Uncontrolled type 2 diabetes mellitus with hyperglycemia (HCC) Hypothyroidism, unspecified type Expected: 04/25/2022, Expires: 06/25/2022 [facility] Work Phone: Comment on above: Expected: 04/25/2022, Expires: 2 Start: 04-25-2022 End: 06-25-2022 Thyroxine (T4) free [Mass/volume] in Serum or Plasma T4 FREE/FREE THYROX Lab Routine Uncontrolled type 2 diabetes mellitus with hyperglycemia (HCC) Hypothyroidism, unspecified type Expected: 04/25/2022, Expires: 06/25/2022 [facility] Work Phone: Comment on above: Expected: 04/25/2022, Expires: 2 Start: 04-18-2022 COVID-19 VACCINE (5 - Booster for Pfizer series) COVID-19 VACCINE (5 - Booster for Pfizer series) [facility] Start: 04-18-2022 COVID-19 VACCINE (5 - Pfizer series) COVID-19 VACCINE (5 - Pfizer series) [facility] Start: 04-06-2022 FECAL OCCULT BLOOD FECAL OCCULT BLOOD [facility] Start: 04-06-2022 Screening for malignant neoplasm of colon Fecal Occult Blood [facility] Start: 03-22-2022 Influenza vaccination [facility] Start: 03-11-2022 End: 05-11-2022 CBC W Auto Differential panel - Blood CBC + DIFF Lab Routine Anemia, unspecified type Expected: 03/11/2022 (Approximate), Expires: 05/11/2022 [facility] Work Phone: Comment on above: Expected: 03/11/2022 (Approximate), Expi res: 05/11/2022 Start: 03-11-2022 End: 05-11-2022 Comprehensive metabolic 2000 panel - Serum or Plasma COMP METABOLIC PANEL Lab Routine Uncontrolled type 2 diabetes mellitus with hyperglycemia (HCC) Mixed hyperlipidemia Essential hypertension Expected: 03/11/2022 (Approximate), Expires: 05/11/2022 [facility] Work Phone: Comment on above: Expected: 03/11/2022 (Approximate), Expi res: 05/11/2022 Start: 03-11-2022 End: 05-11-2022 Hemoglobin A1c in Blood HGB A1C Lab Routine Uncontrolled type 2 diabetes mellitus with hyperglycemia (HCC) Expected: 03/11/2022 (Approximate), Expires: 05/11/2022 [facility] Work Phone: Comment on above: Expected: 03/11/2022 (Approximate), Expi res: 05/11/2022 Start: 03-11-2022 End: 05-11-2022 Lipid 1996 panel - Serum or Plasma LIPID PANEL BASIC Lab Routine Mixed hyperlipidemia Essential hypertension Expected: 03/11/2022 (Approximate), Expires: 05/11/2022 [facility] Work Phone: Comment on above: Expected: 03/11/2022 (Approximate), Expi res: 05/11/2022 Start: 03-11-2022 End: 05-11-2022 Thyrotropin [Units/volume] in Serum or Plasma TSH BLD Lab Routine Hypothyroidism, unspecified type Expected: 03/11/2022 (Approximate), Expires: 05/11/2022 [facility] Work Phone: Comment on above: Expected: 03/11/2022 (Approximate), Expi res: 05/11/2022 Start: 02-18-2022 Blood chemistry [facility] Work Phone: Start: 02-17-2022 Blood chemistry [facility] Work Phone: Start: 02-16-2022 End: 04-18-2022 Fungus identified in Unspecified specimen by Culture [facility] Work Phone: Comment on above: Expected: 02/16/2022, Expires: Start: 02-16-2022 Blood chemistry [facility] Work Phone: Start: 02-15-2022 Blood chemistry [facility] Work Phone: Start: 02-14-2022 Blood chemistry [facility] Work Phone: Start: 02-13-2022 Blood chemistry [facility] Work Phone: Start: 02-12-2022 Blood chemistry [facility] Work Phone: Start: 02-11-2022 Patient discharge [facility] Work Phone: Start: 02-10-2022 Inhalation therapy procedure [facility] Work Phone: Start: 02-09-2022 Assessment of risk of venous thromboembolism [facility] Work Phone: Start: 02-09-2022 Care regimes management [facility] Work Phone: Start: 02-09-2022 Insertion of catheter into peripheral vein [facility] Work Phone: Start: 02-09-2022 Measuring intake and output [facility] Work Phone: Start: 02-09-2022 Notification of physician [facility] Work Phone: Start: 02-09-2022 Oxygen therapy [facility] Work Phone: Start: 02-09-2022 Providing care according to standard [facility] Work Phone: Start: 02-09-2022 Provision of activity privileges [facility] Work Phone: Start: 02-09-2022 Referral to service [facility] Work Phone: Start: 02-09-2022 [facility] Work Phone: Start: 02-09-2022 Following clinical pathway protocol [facility] Work Phone: Start: 02-09-2022 Verification routine [facility] Work Phone: Start: 02-09-2022 Admission procedure [facility] Work Phone: Start: 02-09-2022 Blood culture [facility] Work Phone: Start: 02-09-2022 [facility] Work Phone: Start: 02-09-2022 Hepatitis C antibody, confirmatory test DILATED RETINAL EXAM [facility] Start: 02-09-2022 Patient referral to dietitian [facility] Work Phone: Start: 02-08-2022 Hemoglobin A1c/Hemoglobin.total in Blood HBA1C [facility] Start: 01-18-2022 Influenza vaccination INFLUENZA (#1) [facility] Comment on above: Postponed from 03/22/2021 (Declined at t his time) Start: 01-11-2022 3 comp foot exam completed DIABETIC FOOT EXAM [facility] Start: 01-11-2022 Adult depression screening assessment DEPRESSION SCREENING [facility] Start: 01-11-2022 HEPATITIS C SCREENING HEPATITIS C SCREENING [facility] Comment on above: Postponed from 1984 (Declined at t his time) Start: 01-11-2022 HIV SCREENING HIV SCREENING [facility] Comment on above: Postponed from 1984 (Declined at t his time) Start: 01-06-2022 Hemoglobin A1c/Hemoglobin.total in Blood HBA1C [facility] Start: 07-22-2021 DEPRESSION ASSESSMENT DEPRESSION ASSESSMENT [facility] Start: 07-08-2021 Hepatitis B screening URINE ALBUMIN:CREATININE RATIO [facility] Start: 06-21-2021 COVID-19 VACCINE (4 - Booster for Pfizer series) COVID-19 VACCINE (4 - Booster for Pfizer series) [facility] Start: 01-08-2021 COVID-19 VACCINE (3 - Booster for Pfizer series) COVID-19 VACCINE (3 - Booster for Pfizer series) [facility] Start: 02-24-2019 Screening for malignant neoplasm of colon COLORECTAL CANCER SCREENING [facility] Start: 2016 SHINGRIX VACCINE (1 of 2) SHINGRIX VACCINE (1 of 2) [facility] Start: 2016 Zoster vaccine hzv live for subcutaneous use ZOSTER (SHINGLES) VACCINE (1 of 2) [facility] Start: 02-04-2013 PNEUMOCOCCAL (2 - PCV) PNEUMOCOCCAL (2 - PCV) [facility] Start: 02-04-2013 Pneumococcal vaccination Pneumococcal Vaccine (2 - PCV) [facility] Start: 12-04-2011 COLOGUARD (FIT-DNA) COLOGUARD (FIT-DNA) [facility] Start: 12-04-[address] COLONOGRAPHY [facility] Start: 12-04-2011 Screening for malignant neoplasm of colon [facility] Start: 12-04-2011 SIGMOIDOSCOPY SIGMOIDOSCOPY [facility] Start: 2006 Lipid panel LIPID SCREENING [facility] Start: 12-04-1987 Screening for malignant neoplasm of cervix CERVICAL CANCER SCREENING DISCUSSION [facility] Start: 1985 HEPATITIS B (1 of 3 - Risk 3-dose series) HEPATITIS B (1 of 3 - Risk 3-dose series) [facility] Start: 1985 Hepatitis B vaccination HEP B VACCINE (1 of 3 - 19+ 3-dose series) [facility] Start: 1985 Hepatitis B Vaccine (1 of 3 - 19+ 3-dose series) Hepatitis B Vaccine (1 of 3 - 19+ 3-dose series) [facility] Start: 1984 Anxiety Screening Anxiety Screening [facility] Start: 1984 BP CONTROLLED (<130/80) [facility] Start: 1984 Depression Screening Depression Screening [facility] Start: 1984 HEPATITIS C SCREENING HEPATITIS C SCREENING [facility] Start: 1984 Hepatitis C screening Hepatitis C Screening [facility] Start: 1984 HIV SCREENING HIV SCREENING [facility] Start: 1984 HIV screening HIV Screening [facility] Start: 1981 HIV screening HIV SCREENING DISCUSSION [facility] Start: 1966 HEPATITIS B (1 of 3 - 3-dose series) HEPATITIS B (1 of 3 - 3-dose series) [facility] Start: 1966 Hepatitis B Vaccine (1 of 3 - 3-dose series) Hepatitis B Vaccine (1 of 3 - 3-dose series) [facility] Start: 1966 Hepatitis C screening HEPATITIS C VIRUS SCREENING [facility] Start: 1966 Thyroid stimulating hormone measurement TSH [facility] Bacteria identified in Blood by Culture Blood Culture [facility] Work Phone: Bacteria identified in Urine by Culture Urine Culture [facility] Bacteria identified in Urine by Culture URINE CULTURE Microbiology Routine Urinary tract infection with hematuria, site unspecified Ordered: 08/07/2022 [facility] Work Phone: Comment on above: Ordered: 08/07/2022 Blood culture [facility] Work Phone: JUDIE / TRICHOMONA S AMPLIFICATION JUDIE / TRICHOMONAS AMPLIFICATION Lab Routine Vaginal itching Ordered: 02/16/2022 [facility] Work Phone: Comment on above: Ordered: 02/16/2022 CBC W Auto Different ial panel - Blood [facility] CHROMOGRANIN A CHROMOGRANIN A L ab Routine Neuroendocrine tumor 05/07/2024 7:12 AM EDT [facility] Comprehensive metabo lic 2000 panel - Serum or Plasma [facility] End: 12-24-2024 CT Abdomen and Pelvis WO and W contrast IV [facility] Comment on above: 1 Occurrences starting 12/24/2024 until 12/24/2024 End: 12-17-2025 DBT Breast - bilateral screening AMY SCREENING W JORGE ALBERTO Radiology Routine Encounter for screening mammogram for breast cancer 1 Occurrences starting 11/17/2024 until 12/17/2025 [facility] Work Phone: Comment on above: 1 Occurrences starting 11/17/2024 until 12/17/2025 GASTRIN - NON-STIMULATED GASTRIN - NON-STIMULATED Lab Routine Neuroendocrine tumor 05/07/2024 7:12 AM EDT [facility] GASTRIN - NON-STIMULATED GASTRIN - NON-STIMULATED Lab Routine Neuroendocrine neoplasm of stomach 12/24/2024 1:15 PM EDT [facility] Glucose [Mass/volume ] in Serum or Plasma [facility] Work Phone: Glucose [Mass/volume ] in Serum or Plasma GLUCOSE, BLOOD (POC) Lab Routine Rash, skin Ordered: 02/16/2022 [facility] Work Phone: Comment on above: Ordered: 02/16/2022 Influenza virus A an d B RNA and SARS-CoV-2 (COVID-19) N gene panel - Respiratory specimen by [place] with probe detection COVID WITH FLUA+B, ROUTINE Microbiology Routine Acute cough 10/01/2022 9:26 AM EDT [facility] Work Phone: End: 01-16-2025 MG Breast Screening AMY SCREENING Radiology Routine Encounter for screening mammogram for breast cancer 1 Occurrences starting 12/18/2023 until 01/16/2025 [facility] Work Phone: Comment on above: 1 Occurrences starting 12/18/2023 until 01/16/2025 PANCREATIC POLYPEPTIDE PANCREATI C POLYPEPTIDE Lab Routine Neuroendocrine neoplasm of stomach 12/24/2024 1:15 PM EDT [facility] Work Phone: Patient Education [facility] Work Phone: Patient referral [facility] Work Phone: Percutaneous tests w/allergenic extracts ALLRGY SKN TST (EXTRACTS) IMMEDI Procedures Routine Nonallergic rhinitis Ordered: 08/30/2022 [facility] Work Phone: Comment on above: Ordered: 08/30/2022 Procedure [facility] Prothrombin time [facility] SURG PATH REQUEST [facility] Comment on above: Release Upon Ordering for 1 Occurrences starting 06/23/2024, 1 completed SURG PATH REQUEST [facility] Comment on above: Release Upon Ordering for 1 Occurrences starting 09/03/2024, 1 completed Urine culture Urine Culture [facility] Work Phone: Urine culture [facility] Vitamin D, 25-hydrox y measurement [facility] End: 12-16-2023 XR FOOT GENERAL 3V AP/LAT/OBL BILATERAL XR FOOT GENERAL 3V AP/LAT/OBL BILATERAL Radiology Routine Bilateral foot pain 1 Occurrences starting 11/16/2022 until 12/16/2023 [facility] Work Phone: Comment on above: 1 Occurrences starting 11/16/2022 until 12/16/2023 [facility] Immunizations Immunization Date Immunization Notes Care Provider [facility] 09-02-2024 tetanus toxoid, redu james diphtheria toxoid, and acellular pertussis vaccine, adsorbed; Translations: [Boostrix (Tdap)] VERO ORTEZ FLIGHT RADIO OFFICER-SALES ACCOUNT MANAGER [facility] 09-02-2024 Pneumococcal conjuga te PCV20, polysaccharide [id number] conjugate, adjuvant, PF; Translations: [Prevnar 20] VERO MAST FLIGHT RADIO OFFICER-SALES ACCOUNT MANAGER [facility] 05-11-2024 influenza, injectabl e, quadrivalent, contains preservative; Translations: [Fluarix PF Prefilled Syringe ] VERO MAST FLIGHT RADIO OFFICER-SALES ACCOUNT MANAGER [facility] 04-04-2024 influenza, seasonal, injectable, preservative free VERO MAST TANK ASSEMBLER Work Phone: [facility] 05-03-2023 influenza, injectabl e, quadrivalent, contains preservative Papa Douglass MD Work Phone: [facility] 05-03-2023 pneumococcal (PCV20) vaccine, 20 valent (PREVNAR 20) Papa Douglass MD Work Phone: [facility] 05-03-2023 pneumococcal Conjuga te, unspecified formulation Papa Douglass MD Work Phone: [facility] Work Phone: 05-03-2023 influenza virus vaccine, unspecified formulation [facility] Work Phone: [facility] 02-19-2021 Covid (Pfizer) Dr. Papa swiftunderwood Work Phone: [facility] 08-10-2020 COVID-19 vaccine, ag e 12+ yr (PFIZER-BIONTECH - PURPLE TOP) Coco Waters FLIGHT RADIO OFFICER.SALES ACCOUNT MANAGER Work Phone: [facility] 07-13-2020 COVID-19 vaccine, ag e 12+ yr (PFIZER-BIONTECH - PURPLE TOP) Coco Waters FLIGHT RADIO OFFICER.SALES ACCOUNT MANAGER Work Phone: [facility] 04-21-2020 influenza, seasonal, injectable Coco Waters APRN.SALES ACCOUNT MANAGER Work Phone: [facility] 04-21-2020 influenza virus vaccine, unspecified formulation Mela Garcia APRN.SALES ACCOUNT MANAGER Work Phone: [facility] 06-06-2018 tetanus toxoid, redu james diphtheria toxoid, and acellular pertussis vaccine, adsorbed Coco Tannhof FLIGHT RADIO OFFICER.SALES ACCOUNT MANAGER Work Phone: [facility] 04-04-2017 influenza, injectabl e, quadrivalent, contains preservative Coco Tannhof FLIGHT RADIO OFFICER.SALES ACCOUNT MANAGER Work Phone: [facility] 01-24-2017 tetanus toxoid, redu james diphtheria toxoid, and acellular pertussis vaccine, adsorbed Coco Tannhof FLIGHT RADIO OFFICER.SALES ACCOUNT MANAGER Work Phone: [facility] 05-20-2016 influenza, injectabl e, quadrivalent, contains preservative Coco Tannhof FLIGHT RADIO OFFICER.SALES ACCOUNT MANAGER Work Phone: [facility] 08-02-2015 influenza, injectabl e, quadrivalent, contains preservative Coco Tannhof FLIGHT RADIO OFFICER.SALES ACCOUNT MANAGER Work Phone: [facility] 08-02-2015 influenza, injectabl e, quadrivalent, preservative free Coco Tannhof FLIGHT RADIO OFFICER.SALES ACCOUNT MANAGER Work Phone: [facility] 05-26-2012 influenza virus vaccine, unspecified formulation Coco Lisahof FLIGHT RADIO OFFICER.SALES ACCOUNT MANAGER Work Phone: [facility] 02-05-2012 pneumococcal polysaccharide vaccine, 23 valent Cocokobi Gonzalezhof FLIGHT RADIO OFFICER.[facility] Work Phone: [facility] Payers Date Payer Category Payer Medicaid (Managed Care) [facility] [id number] 2024 Self-pay [id number] 2023 Unknown [id number] 2022 Medicaid [id number] 2022 Government (not [facility] or Medicaid) [facility] [id number] 2022 Unknown [id number] .[id number] 2011 Private Health Insurance [employer] A ETNA CHOICE POS II [id number] 2011-Present [phone] [address] [place] [address] POS [id number] 2011 Private Health Insurance [id number] 2011 Private Health Insurance [id number] .[id number] 1966 Unknown [id number] 2.16.840.1.105461.3.579.2 .1966 Unknown [id number] 2.16.840.1.578686.3.579.2 .1966 Unknown [id number] 2.16.840.1.555880.3.579.2 1966 Unknown [id number] 2.16.840.1.484204.3.579.2 1966 Unknown [id number] 2.16.840.1.268181.3.579.2 1966 Unknown [id number] 2.16.840.1.895698.3.579.2 1966 Unknown [id number] 2.16.840.1.944608.3.579.2 .1966 Unknown [id number] 2.16.840.1.005028.3.579.2 1966 Unknown [id number] 2.16.840.1.396379.3.579.2 1966 Unknown [id number] 2..840.1.339665.3.579.2 1966 Unknown [id number] 2..840.1.417025.3.579.2 1966 Unknown [id number] 2.16.840.1.283936.3.579.2 1966 Unknown [id number] 2.16.840.1.678202.3.579.2 1966 Unknown [id number] 2.16.840.1.302972.3.579.2 1966 Unknown [id number] 2.16.840.1.443908.3.579.2 1966 Unknown [id number] 2.16.840.1.393196.3.579.2 1966 Unknown [id number] 2.16.840.1.055394.3.579.2 1966 Unknown [id number] 2.16.840.1.639445.3.579.2 1966 Unknown [id number] 2.16.840.1.092593.3.579.2 .62 1966 Unknown [id number] 2.16.840.1.243594.3.579.2 .62 1966 Unknown [id number] 2.16.840.1.473006.3.579.2 62 1966 Unknown [id number] 2.16.840.1.159477.3.579.2 .1966 Unknown [id number] 2.16.840.1.938847.3.579.2 1966 Unknown [id number] 2.16.840.1.149841.3.579.2 .1966 Unknown [id number] 2.16840.1.175021.3.579.2 1966 Unknown [id number] 2.16840.1.156073.3.579.2 1966 Unknown [id number] 2.16840.1.855603.3.579.2 1966 Unknown [id number] 2.16840.1.102208.3.579.2 1966 Unknown [id number] 2.16840.1.042473.3.579.2 .594 1966 Unknown [id number] 2.16840.1.995595.3.579.2 .594 1966 Unknown [id number] 2.16.840.1.438138.3.579.2 .594 1966 Unknown [id number] 2.16.840.1.964676.3.579.2 .594 1966 Unknown [id number] 2.16.840.1.363759.3.579.2 594 1966 Unknown [id number] 2.16.840.1.371322.3.579.2 .594 1966 Unknown [id number] 2.16.840.1.885859.3.579.2 .594 1966 Unknown [id number] 2.16.840.1.457404.3.579.2 .594 1966 Unknown [id number] 2.16.840.1.194659.3.579.2 .594 1966 Unknown [id number] 2.16.840.1.668323.3.579.2 .594 1966 Unknown [id number] 2.16.840.1.609982.3.579.2 .594 1966 Unknown [id number] 2.16840.1.387886.3.579.2 .594 1966 Unknown [id number] 2.840.1.848894.3.579.2 .594 1966 Unknown [id number] 2.840.1.612577.3.579.2 .594 1966 Unknown [id number] 2.840.1.192151.3.579.2 .594 1966 Unknown [id number] 2.840.1.085111.3.579.2 .594 1966 Unknown [id number] 2.840.1.403231.3.579.2 .594 1966 Unknown [id number] .840.1.486703.3.579.2 .594 1966 Unknown [id number] .840.1.975410.3.579.2 .594 Unknown [id number] Unknown [id number] Unknown [id number] 2.16840.1.781200.3.579.2 .462 Unknown [id number] 2.840.1.865348.3.579.2 .462 Unknown [id number] 2.16.840.1.088083.3.579.2 .462 Unknown [id number] 2.16.840.1.614120.3.579.2 .462 Unknown [id number] 2.16.840.1.221451.3.579.2 .462 Unknown [id number] 2.16.840.1.950441.3.579.2 .462 Unknown [id number] 2.16.840.1.978949.3.579.2 .462 Unknown [id number] 2.16.840.1.581872.3.579.2 .462 Unknown [id number] 2.16.840.1.857647.3.579.2 .462 Unknown [id number] 2.16.840.1.050655.3.579.2 .462 Unknown [id number] 2.16.840.1.945065.3.579.2 .462 Unknown [id number] 2.16.840.1.042280.3.579.2 .462 Unknown [id number] 2.16.840.1.551841.3.579.2 .462 Unknown [id number] 2.16.840.1.891386.3.579.2 .462 Unknown [id number] 2.16.840.1.893431.3.579.2 .462 Unknown [id number] 2.16.840.1.487989.3.579.2 .462 Unknown [id number] 2.16.840.1.250228.3.579.2 .462 Unknown [id number] 2.16.840.1.241644.3.579.2 .462 Unknown [id number] 2.16.840.1.893914.3.579.2 .462 Unknown [id number] 2.16.840.1.516741.3.579.2 .462 Unknown [id number] 2.16.840.1.841197.3.579.2 .462 Unknown [id number] 2.16.840.1.283588.3.579.2 .462 Unknown [id number] 2.16.840.1.618019.3.579.2 .462 Unknown [id number] 2.16.840.1.663301.3.579.2 .462 Unknown [id number] 2.16.840.1.913088.3.579.2 .462 Unknown [id number] 2.16840.1.024187.3.579.2 .462 Unknown [id number] 2.16840.1.973947.3.579.2 .462 Unknown [id number] 2.840.1.039344.3.579.2 .462 Unknown [id number] 2.840.1.172874.3.579.2 .462 Unknown [id number] 2.840.1.150590.3.579.2 .462 Unknown [id number] 2.840.1.749931.3.579.2 .462 Unknown [id number] 2.840.1.962584.3.579.2 .462 Unknown [id number] 2.840.1.791792.3.579.2 .462 Unknown [id number] 2.16840.1.630206.3.579.2 .462 Unknown [id number] 2.16840.1.069399.3.579.2 .462 Unknown [id number] 2.16840.1.158111.3.579.2 .462 Unknown [id number] 2.16840.1.813134.3.579.2 .462 Unknown [id number] 2.16840.1.463807.3.579.2 .462 Unknown [id number] 2.16.840.1.231954.3.579.2 .462 Unknown [id number] 2.16840.1.615073.3.579.2 .462 Unknown [id number] 2.16840.1.963603.3.579.2 .462 Unknown [id number] 2.16840.1.973662.3.579.2 .462 Unknown [id number] 2.16840.1.838690.3.579.2 .462 Unknown [id number] 2.840.1.856957.3.579.2 .462 Unknown [id number] 2.840.1.014246.3.579.2 .462 Unknown [id number] 2.0.1.833297.3.579.2 .462 Social History Date Type Detail Facility Start: 05-29-2012 End: 05-07-2024 Tobacco smoking status NHIS Ex-smoker [facility] Start: 05-29-2000 End: 05-29-2010 History of tobacco use Current smoker [facility] Start: 05-29-2000 End: 05-29-2010 History of tobacco use Cigarette Smoker [facility] Start: 05-29-2012 End: 12-31-2024 Cigarettes smoked current (pack per day) - Reported 0.5 [facility] Start: 05-29-2012 End: 05-07-2024 Tobacco use and exposure Smokeless tobacco non-user [facility] Start: 10-06-2021 End: 07-02-2023 Alcohol intake Current drinker of alcohol (finding) [facility] Start: 02-24-2018 History SDOH Alcohol Comment occasionally [facility] Start: 02-08-2021 History SDOH Social Connections Phone 3 [facility] Start: 02-08-2021 History SDOH Social Connections Faith 1 [facility] Start: 02-08-2021 History SDOH Social Connections Membership 2 [facility] Start: 02-08-2021 History SDOH Social Connections Living 7 [facility] Start: 02-08-2021 History SDOH Physica l Activity DPW 0 [facility] Start: 02-08-2021 History SDOH Financial 4 [facility] Start: 1965 Sex Assigned At Not on file C [facility] Start: 09-29-2021 End: 06-21-2022 Exposure to SARS-CoV-2 (event) Not sure [facility] Start: 02-09-2022 End: 04-18-2023 Tobacco smoking status NHIS Unknown if ever smoked [facility] Start: 09-26-2020 Cigarettes [facility] Start: 1965 Sex Assigned At Female W [facility] Start: 03-19-2022 Tobacco Comment one pack per w yocha dehe for 2 years [facility] Start: 09-12-2017 Occasional [facility] Start: 09-12-2017 None [facility] Start: 09-12-2017 With Family [facility] Start: 02-08-2021 End: 12-31-2024 Social connection and isolation panel [facility] Do you belong to any clubs or organizations such as mormon groups, unions, fraternal or athletic groups, or school groups? No [facility] Are you now , , , , never or living with a partner? Never [facility] How hard is it for y ou to pay for the very basics like food, housing, medical care, and heating Not very hard [facility] Adult Depression Screening Assessment 0 [facility] Work Phone: (I/We) worried blaine er (my/our) food would run out before (I/we) got money to buy more. Never true [facility] In the past 12 month s, was there a time when you were not able to pay the mortgage or rent on time? Yes [facility] Start: 06-21-2023 End: 11-06-2024 Tobacco smoking status Never smoked tobacco (finding) [facility] Sex Assigned At [facility] Start: 05-07-2024 End: 12-31-2024 Alcoholic beverage intake Ex-drinker (finding) [facility] Start: 08-30-2005 End: 03-01-2020 Sex Female (finding) [facility] NEGATED: Highlighted row Not [facility] Medical Equipment Procedure Code Equipment Code Equipment Origin al Text Equipment Identifier Dates EGD, with monitored anesthesia care HEMOSPRAY FDA Start: 04-04-2024 EGD, with monitored anesthesia care Tissue marking ink [id number] FDA Start: 04-04-2024 EGD, with monitored anesthesia care Ligation clip, metallic ()[id number] FDA Start: 04-04-2024 EGD, with monitored anesthesia [...] Start: 04-04-2024 Mirena Iud [id number] - [id number] Start: 01-06-2013 Comment on above: Description: Mirena [id number], [id number], [id number], [id number], [id number] Start: 07-01-2019 End: 01-19-2023 Comment on above: [...] Facility 03-30-2024 Functional Status Safety level maintained [facility] 02-25-2024 Functional Status Independent [facility] holly [facility] 02-25-2024 Functional Status ID band on, Allergy Band on, Call device within reach, Bed in low position, Wheels locked, Upper/Half-Length side-rails up, Safety level maintained [facility] 04-20-2023 Functional status Ambulates;Up ad radha [facility] Work Phone: 02-11-2022 Functional status Chair [facility] Work Phone: 02-21-2015 Are you deaf, or do you have serious difficulty hearing No 02/21/2015 4:24 PM EDT Bg Johnston LPN No [facility] 02-21-2015 Are you blind, or do you have serious difficulty seeing, even when wearing glasses No 02/21/2015 4:24 PM EDT Bg Johnston LPN No [facility] 02-21-2015 Do you have serious difficulty walking or climbing stairs No 02/21/2015 4:24 PM EDT Bg Johnston LPN No [facility] 02-21-2015 Do you have difficul ty dressing or bathing No 02/21/2015 4:24 PM EDT Bg Johnston LPN No [facility] 02-21-2015 Because of a physica l, mental, or emotional condition, do you have difficulty doing errands alone such as visiting a physician's office or shopping No 02/21/2015 4:24 PM EDT Bg Johnston LPN No [facility] Mental Status Date Assessment Result Facility 11-03-2024 Cognitive function Level Of Cons ciousness Awake;Alert;Appropriate;Fol lows Commands [facility] Work Phone: 07-29-2024 Cognitive function Level Of Cons ciousness Sedated [facility] Work Phone: 07-29-2024 Cognitive function Voice/Name [facility] Work Phone: 03-30-2024 Mental Status Oriented x 4 [facility] 02-25-2024 Mental Status Orientation Oriented x 4 [facility] 02-25-2024 Mental Status [facility] 04-20-2023 Cognitive function Voice/Name [facility] Work Phone: 01-20-2023 Cognitive function Level Of Cons ciousness Awake;Alert;Appropriate [facility] Work Phone: 01-07-2023 Cognitive function Level Of Cons ciousness Awake;Alert;Appropriate;Fol lows Commands [facility] Work Phone: 10-25-2022 Cognitive function Level Of Cons ciousness Awake;Alert;Appropriate;Fol lows Commands [facility] Work Phone: 09-21-2022 Cognitive function Level Of Cons ciousness Awake;Alert;Appropriate;Fol lows Commands [facility] Work Phone: 08-31-2022 Cognitive function Voice/Name [facility] Work Phone: 02-11-2022 Cognitive function Voice/Name [facility] Work Phone: 02-09-2022 Cognitive function Level Of Cons ciousness Awake;Drowsy [facility] Work Phone: 02-21-2015 Because of a physica l, mental, or emotional condition, do you have serious difficulty concentrating, remembering, or making decisions No 02/21/2015 4:24 PM EDT Bg Johnston LPN No [facility] Clinical Notes 10-12-2021 to 12-31-2024 Scott Berrios [...] retrieved. Clip (MR conditional) was placed. 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 - An endoclip was found in the stomach. Removal was successful. - Two gastric polyps (0.9-1.1 cm in the gastric antrum). Resected and retrieved. Clips (MR conditional) were placed. 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 - 1.5cm post mucosectomy scar in the gastric body. Clips (MR conditional) were placed. 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 - A hypoechoic irregular mass was [...] (Please send link to listed mobile # [phone] C/o having issues with acid reflux and [...] metaplastic gastritis (AMAG). Clinical correlation is recommended. Ring Sorter slides were reviewed at the daily GI [...] I, or a Nurse Practitioner or Physician's Program Support Specialist had a Iids-dz-Ivfz Encounter with them. Based upon those findings, [...] x 2 DILATION AND CURETTAGE LAP CHOLECYSTECTOMY [facility] family history includes Breast Cancer (age of [...] colonoscopy in 6 mo. She will call [facility] for scheduling. C/w iron supplementation. Hyponatremia: Pseudohyponatremia [...] discharge instructions. documented in this encounter [facility] 12-31-2024 Instructions Scott Berrios MD, MPH - 12/31/2024 2:50 PM EDT Referral to hepatology (local) please send requisition [facility] RTC in approx [address] Berrios (in person) Labs and scans approx 10 days prior to RTC documented in this encounter [facility] 12-30-2024 Progress note [facility] 12-30-2024 Progress note Note Date/Time December 30, 2024 11:07am [facility] [address], [address] [place] [address] OFFICE VISIT Date of Service: 12/30/24 MR#: [id number] Acct: [id number] Name: LEROY TYLER Rep #: [id number] : 1965 Provider: ALISA Abbott Age/Sex: 59/F Location: [facility] Status: Signed Intake Vital Signs 11/03/24 21:01 12/30/24 10:43 Height 5 ft 1 in BP 128/70 H Blood Pressure Location Lt brachial Position Sitting Respiration 16 Pulse 92 Pulse Source NIBP Temp 98.2 F Temp Source Oral Pulse Oximetry (%) 99 Oxygen Delivery Method room air Intake Visit Reasons: SINUS COMPLAINT/ROY/COUGH Chief Complaint: congest, BA, ROY, cough Development Writer Required: No Is patient in pain?: No [...] #3 ea 02/18/23 5 Rx Sensor device) 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 No dkwb-khi-coixlka products taken to assist. Several close contacts [...] today. Patient aware of isolation recommendations and [facility] department notification. Patient contacted her PCPs office [...] fallen in the past year?: No 12/30/24 1100 <Electronically signed by Neal CUELLAR> Date _ Neal CUELLAR Cosigner Signature: Date (if applicable) CC: ~ [facility] Work Phone: 1(912) 667-801505-15-2025 Note. MICRO - Microbiology PROCEDURE: Urine Culture [...] Locations *1: This test was performed at: [facility], [address] [place] [address], [facility]- , [facility]04-29-2025 NotePatient Outreach (FAMPWS) LEROY TYLER ([id number]) 1965 F Date Time Provider Department 11/17/24 [...] Date Reviewed: 09/30/2024 Reviewed by: Rosa Cardenas, ALFOZNO - Fully Assessed Visit Diagnosis:Encounter for screening mammogram for breast cancer [Z12.31] Order(s):[facility] SCREENING W JORGE ALBERTO [[id number]] Order #: [id number] FUTURE Prescriptions as of 12/18/2024 - cefdinir [...] times daily until gone. 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 10-14-2024 Procedure [facility] Pulmonary Services/Neurology [address] [place] [address] MR#: [id number] Acct: [id number] Name: LEROY TYLER Rep #:[id number] : 1965 58 From: Alberto Qiu DO Referring Dr: Elsa José TRIMMER HAND-C Status: REG CLI Location: PSN Date: Sex: [...] Date Dictated: 10/14/24 1114 Date Transcribed: 10/14/241113 Manager Acquisition: Dr. Alberto Qiu, Signed [facility]03-12-2025 Radiology Diagnostic study note [facility] Imaging Services [address] [place] [address] Foot min 3 Views MR#: [id number] Acct: [id number] Name: LEROY TYLER Rep #: [id number] : 1965 F 58 From: Robert Balderas MD PCP: DARLING KWAN Status: REG ER Study:Foot min 3 Views Date of Exam: 07/15 Exam# [id number] Ordering Dr: Margarita Mercado DO PROCEDURE: FOOT [...] of the calcaneus as above. Reading Location: [id number] CC: Steven Mercado DO; DARLING KWAN ~ Manager Acquisition: Signed [facility]03-11-2025 Telephone encounter Note* Telephone Encounter - Rosa Cardenas RN - 09/29/2024 11:49 PM EDT Reason for Call: Pt c/o left foot pain she rates 9/10 and is diabetic. Outcome: Disposition- Go to ED now. Pt agreeable to go to [place] ED. Reason for Disposition SEVERE pain Diabetes [...] fever. 10. : na. Protocols used: Foot Fgcz-UOSYS-PW, Diabetes - Foot Problems and Mpueysdyh-PFGWN-LI [facility]03-11-2025 Miscellaneous Notes* Telephone Encounter - Rosa Cardenas RN - 09/29/2024 11:49 PM EDT Reason for Call: Pt c/o left foot pain she rates 9/10 and is diabetic. Outcome: Disposition- Go to ED now. Pt agreeable to go to [facility] ED. Reason for Disposition SEVERE pain Diabetes [...] fever. 10. : na. Protocols used: Foot Lkgh-WJACH-RS, Diabetes - Foot Problems and Mxtnrrthn-WRBVZ-KA [facility] Telephone encounter Note * Telephone Encounter - Sridevi Connors RN - 09/25/2024 3:56 PM EST 09/25/2024 3:56 PM RN called patient to let her know the labs were reviewed by Thomas Montero CNP and said this: Hgb mild improvement from 2024 continue iron supplements Office number provided for call back should she have any questions or concerns. --Sridevi Connors RN [facility]03-07-2025 Miscellaneous Notes* Telephone Encounter - Sridevi [...] 11:42 AM Received labs via fax from [facility]: --Sridevi Connors RN * Telephone Encounter - Bhupinder Huizar RN - 09/23/2024 2:23 PM EST Called and spoke to patient who was unaware that she needed lab order this week. Stated that she will be able to go to [facility] next week to get lab work completed. [...] Thank you! ALFONZO [place] [facility] Telephone encounter Note* Telephone Encounter - ELMER Jaquez - 09/25/2024 12:02 PM EST Hgb mild improvement from 2024 continue iron supplements [facility] Work Phone: 1(543) 829-176203-07-2025 Telephone encounter Note* Telephone Encounter - Sridevi Connors RN - 09/25/2024 11:42 AM EST Images from the original note were not included. 09/25/2024 11:42 AM Received labs via fax from [facility]: --Sridevi Connors RN [facility]03-05-2025 Telephone encounter Note* Telephone Encounter - Bhupinder Huizar RN - 09/23/2024 2:23 PM EST Called and spoke to patient who was unaware that she needed lab order this week. Stated that she will be able to go to [facility] next week to get lab work completed. Reminder in place to follow up with labs next week sometime [facility]03-05-2025 Telephone encounter Note* Telephone Encounter - Luz Maria Escudero - 09/23/2024 1:59 PM EST Patient returning call. She is requesting a call back. [facility]03-05-2025 Telephone encounter Note* Telephone Encounter - Jaziel Christy RN - 09/23/2024 12:30 PM EST Called patient to follow up on labs locally, upon chart review a repeat CBC was ordered to be done locally. No answer, LVM with call back number Awaiting pt call [facility]03-03-2025 Telephone encounter Note* Telephone Encounter - Supriya Stone RN - 09/21/2024 8:12 AM EST ----- Message from ALFONZO Epps sent at 08/27/2024 3:25 PM EST ----- Pt was seen in clinic 08/27/2024 - needs to have lab work locally on 09/21 or 09/22/2024 Local lab slip provided. Please ensure we received results. Thank you! ALFONZO [place] [facility]02-14-2025 Evaluation note* Diagnosis Onset Date Resolution [...] sleep apnea acute A pril 2024 12:32pm [facility] Work Phone: 1(780) 255-753902-13-2025 Nurse Surgical operation note* Boubacar Herrera RN [...] - ambulatory - accompanied by her friends (medical delivery driver). [facility]02-13-2025 Nurse Note* Boubacar Herrera RN - [...] - ambulatory - accompanied by her friends (medical delivery driver). documented in [facility] History and physical note* Velasquez Berry MD - 09/03/2024 1:00 PM EST ENDOSCOPIC PREPROCEDURE HISTORY AND PHYSICAL HISTORY OF PRESENT ILLNESS: Leroy Tyler is a 58 y.o. female seen in the preoprocedure area at [facility] ENDOSCOPY. The indication for endoscopic evaluation includes: [...] x 2 DILATION AND CURETTAGE LAP CHOLECYSTECTOMY [facility] MEDICATIONS: Current Outpatient Medications Medication Instructions Albuterol [...] I, or a Nurse Practitioner or Physician's Program Support Specialist had a Zehr-ro-Mmdu Encounter with them. Based upon those findings, [...] Monitored Anesthesia Care. Velasquez Berry MD, MS [employer] Molderbanbury machine operator Division of Gastroenterology, Hepatology, and Nutrition [facility] Work Phone: 1(954) 747-223102-13-2025 History and physical note* Velasquez Berry MD - 09/03/2024 1:00 PM EST ENDOSCOPIC PREPROCEDURE HISTORY AND PHYSICAL HISTORY OF PRESENT ILLNESS: Leroy Tyler is a 58 y.o. female seen in the preoprocedure area at [facility] ENDOSCOPY. The indication for endoscopic evaluation includes: [...] x 2 DILATION AND CURETTAGE LAP CHOLECYSTECTOMY [facility] MEDICATIONS: Current Outpatient Medications Medication Instructions Albuterol [...] I, or a Nurse Practitioner or Physician's Program Support Specialist had a Dojr-jf-Euen Encounter with them. Based upon those findings, [...] Monitored Anesthesia Care. Velasquez Berry MD, MS [employer] machine operator Division of Gastroenterology, Hepatology, and Nutrition [facility] Miscellaneous Notes* Nursing Notes - Sylvie Rosenberg RN - 09/03/2024 1:00 PM EST Blood glucose 371 in pre-op. Dr. Gupta aware and ordered 8 units insulin Humalog which was administered at 1245. Per whitney Perez for patient to go into her procedure at 1300 and have the blood glucose re-checked at 1345. documented in this [facility] Nurse Note* Nursing Notes - Sylvie Rosenberg RN - 09/03/2024 1:00 PM EST Blood glucose 371 in pre-op. Dr. Gupta aware and ordered 8 units insulin Humalog which was administered at 1245. Per whitney Perez for patient to go into her procedure at 1300 and have the blood glucose re-checked at 1345. [facility] Note. MICRO - Microbiology PROCEDURE: Affirm Pathogens DNA Direct Probe [*1] SOURCE: Vaginal Fluid BODY SITE: Vagina COLLECTED DATE/TIME: 09/02/2024 16:25 EST RECEIVED DATE/TIME: 09/02/2024 19:20 EST START DATE/TIME: 09/02/2024 19:20 EST FREE TEXT SOURCE: FINAL REPORTS Final Report [] Verified Date/Time/Personnel: 09/03/2024 09:08 EST Trichomonas vaginalis DNA Probe Negative Gardnerella vaginalis DNA Probe Negative Ujdie species DNA Probe Positive Performing Locations *1: This test was performed at: [address], [address]- , [facility]02-06-2025 History of Present illness Narrative* Scott [...] retrieved. Clip (MR conditional) was placed. 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 - An endoclip was found in the stomach. Removal was successful. - Two gastric polyps (0.9-1.1 cm in the gastric antrum). Resected and retrieved. Clips (MR conditional) were placed. 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 - 1.5cm post mucosectomy scar in the gastric body. Clips (MR conditional) were placed. 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 - A hypoechoic irregular mass was identified [...] I, or a Nurse Practitioner or Physician's Program Support Specialist had a Jplm-uv-Qmbh Encounter with them. Based upon those findings, [...] x 2 DILATION AND CURETTAGE LAP CHOLECYSTECTOMY [facility] family history includes Breast Cancer (age of [...] with the discharge instructions. documented in this [facility]02-06-2025 History of Present illness Narrative* [...] retrieved. Clip (MR conditional) was placed. 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 - An endoclip was found in the stomach. Removal was successful. - Two gastric polyps (0.9-1.1 cm in the gastric antrum). Resected and retrieved. Clips (MR conditional) were placed. 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 - 1.5cm post mucosectomy scar in the gastric body. Clips (MR conditional) were placed. 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 - A hypoechoic irregular mass was identified [...] I, or a Nurse Practitioner or Physician's Program Support Specialist had a Nxxf-pm-Yoit Encounter with them. Based upon those findings, [...] x 2 DILATION AND CURETTAGE LAP CHOLECYSTECTOMY [facility] family history includes Breast Cancer (age of [...] every other day. [facility] History of Present illness Narrative* Scott [...] retrieved. Clip (MR conditional) was placed. 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 - An endoclip was found in the stomach. Removal was successful. - Two gastric polyps (0.9-1.1 cm in the gastric antrum). Resected and retrieved. Clips (MR conditional) were placed. 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 - 1.5cm post mucosectomy scar in the gastric body. Clips (MR conditional) were placed. 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 - A hypoechoic irregular mass was identified [...] I, or a Nurse Practitioner or Physician's Program Support Specialist had a Fcnv-an-Bdhw Encounter with them. Based upon those findings, [...] x 2 DILATION AND CURETTAGE LAP CHOLECYSTECTOMY [facility] family history includes Breast Cancer (age of [...] mg every other day. documented in this [facility]02-[facility] Instructions* Patient Instructions* Supriya Stone RN - 08/27/2024 3:00 PM EST Return to clinic: RTC in [address] Berrios with labs and scans 1 week prior RN to please request colonoscopy report form 07/29/24 from [facility] RN to please print out the CT [...] survey regarding your care today at [facility]. We would appreciate if you could complete this short questionnaire as your feedback will help us improve future care of you, and others at our facility +++For labs, please note that if it is a walk-in lab, the lab appt will not show up on [employer]. In that case please keep a reminder in your calendar to get a lab draw on the same day of scans+++ Thank you for choosing [facility] for your cancer care. FMLA/Disability forms: [...] you have questions or concerns, please call [phone]. documented in this encounterCity Hospital02-06-2025 Instructions* Patient Instructions* Supriya Stone RN - 08/27/2024 3:00 PM EST Return to clinic: RTC in [address] Berrios with labs and scans 1 week prior RN to please request colonoscopy report form 07/29/24 from [facility] RN to please print out the CT [...] survey regarding your care today at [facility]. We would appreciate if you could complete this short questionnaire as your feedback will help us improve future care of you, and others at our facility +++For labs, please note that if it is a walk-in lab, the lab appt will not show up on [employer]. In that case please keep a reminder in your calendar to get a lab draw on the same day of scans+++ Thank you for choosing [facility] for your cancer care. FMLA/Disability forms: [...] you have questions or concerns, please call [phone]. documented in this encounterCity Hospital02-06-2025 Instructions* Patient Instructions* Supriya Stone RN - 08/27/2024 3:00 PM EST Return to clinic: RTC in [address] Berrios with labs and scans 1 week prior RN to please request colonoscopy report form 07/29/24 from [facility] RN to please print out the CT [...] survey regarding your care today at [facility]. We would appreciate if you could complete this short questionnaire as your feedback will help us improve future care of you, and others at our facility +++For labs, please note that if it is a walk-in lab, the lab appt will not show up on [employer]. In that case please keep a reminder in your calendar to get a lab draw on the same day of scans+++ Thank you for choosing [facility] for your cancer care. FMLA/Disability forms: [...] you have questions or concerns, please call [phone]. documented in this encounterOSTri[facility]-06-[facility]25 Miscellaneous Notes* Addendum Note - Scott Berrios MD, MPH - 08/27/2024 3:00 PM ESTAddended by: SCOTT BERRIOS on: 08/28/2024 08:29 AM Modules accepted: Orders documented in this encounterOSTrihealth [facility]02-06-2025 Miscellaneous Notes* Addendum Note - Scott Berrios MD, MPH - 08/27/2024 3:00 PM ESTAddended by: SCOTT BERRIOS on: 08/28/2024 08:29 AM Modules accepted: Orders * Addendum Note - Scott Berrios MD, MPH - 08/27/2024 3:00 PM ESTAddended by: SCOTT BERRIOS on: 09/04/2024 12:21 PM Modules accepted: Orders documented in this encounterCity Hospital02-06-2025 Note* Addendum Note - Scott Berrios MD, MPH - 08/27/2024 3:00 PM ESTAddended by: SCOTT BERRIOS on: 08/28/2024 08:29 AM Modules accepted: Orders [facility] Note* Addendum Note - Scott Berrios MD, MPH - 08/27/2024 3:00 PM ESTAddended by: SCOTT BERRIOS on: 08/28/2024 08:29 AM Modules accepted: Orders [facility]02-06-[facility] Note* Addendum Note - Scott Berrios MD, MPH - 08/27/2024 3:00 PM ESTAddended by: SCOTT BERRIOS on: 09/04/2024 12:21 PM Modules accepted: Orders [facility]01-10-2025 Telephone encounter Note* Telephone Encounter - [...] Again, patient verbalizes understanding. --Sridevi Connors RN [facility]01-10-2025 Miscellaneous Notes* Telephone Encounter - Sridevi [...] last appt. Please advise. documented in this encounterOSTrihealth [facility]01-10-2025 Telephone encounter Note* Telephone Encounter - David Drake - 07/31/2024 9:07 AM EST Pt is rescheduled for CT on 08/14 due to it aligning better for transportation. She also asked if Dr. Berrios could send her paper work on why she eis unable to work at this time. Stated they talked about this at her last appt. Please advise. [facility] History of Present illness Narrative* Scott [...] retrieved. Clip (MR conditional) was placed. 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 - An endoclip was found in the stomach. Removal was successful. - Two gastric polyps (0.9-1.1 cm in the gastric antrum). Resected and retrieved. Clips (MR conditional) were placed. 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 - 1.5cm post mucosectomy scar in the gastric body. Clips (MR conditional) were placed. 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 - A hypoechoic irregular mass was identified [...] x 2 DILATION AND CURETTAGE LAP CHOLECYSTECTOMY [facility] family history includes Breast Cancer (age of [...] with the discharge instructions. documented in this [facility]01-09-2025 History of Present illness Narrative* [...] retrieved. Clip (MR conditional) was placed. 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 - An endoclip was found in the stomach. Removal was successful. - Two gastric polyps (0.9-1.1 cm in the gastric antrum). Resected and retrieved. Clips (MR conditional) were placed. 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 - 1.5cm post mucosectomy scar in the gastric body. Clips (MR conditional) were placed. 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 - A hypoechoic irregular mass was [...] x 2 DILATION AND CURETTAGE LAP CHOLECYSTECTOMY [facility] family history includes Breast Cancer (age of [...] with the discharge instructions. documented in this [facility]01-09-2025 Instructions* Patient Instructions* Scott Berrios MD, MPH - 07/30/2024 2:00 PM EST Please do not take pantoprazole until Aug 14. You can resume on Aug 14 after your labs on Aug 13. Please request the EGD report from 04/04/24 from [facility]. Labs and CT A/P on Aug 13 RTC on Aug 27. No labs needed that day. RN to please print and mail my signed clinic note to the patient documented in this [facility]OS[facility] Instructions* Patient Instructions* Scott Berrios MD, MPH - 07/30/2024 2:00 PM EST Please do not take pantoprazole until Aug 14. You can resume on Aug 14 after your labs on Aug 13. Please request the EGD report from 04/04/24 from [facility]. Labs and CT A/P on Aug 13 RTC on Aug 27. No labs needed that day. RN to please print and mail my signed clinic note to the patient documented in this encounterCity Hospital01-09-2025 Miscellaneous Notes* Addendum Note - Scott Berrios MD, MPH - 07/30/2024 2:00 PM ESTAddended by: SCOTT BERRIOS on: 07/31/2024 10:25 AM Modules accepted: Orders documented in this encounterOSU [facility]01-09-2025 Note* Addendum Note - Scott Berrios MD, MPH - 07/30/2024 2:00 PM ESTAddended by: SCOTT BERRIOS on: 07/31/2024 10:25 AM Modules accepted: Orders [facility] History of Present illness Narrative* Gia Kilgore RN - 07/30/2024 11:47 AM EST I received handoff from Sandy. After review of the chart, there are no current complex case management needs at this time, Please re-consult if new needs arise. Gai ELMORE sewer and drain technician [facility] Pager: [phone] waste machine tender Line: [phone] documented in this encounterOSU [facility]01-09-2025 History of Present illness Narrative* Karolina Piedra, KHADIJAH-ALEXEI, DNP - 07/30/2024 11:45 AM EST Chief Complaint: Chief Complaint Patient presents with Follow-up History of Present Illness: Ms. Tyler is a 58 y.o. 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 She presents to [facility] On[facility] clinic for follow up with Ga PET. Oncologic History: Leroy Tyler initially presented with c/o abdominal pain, GI bleed. Was admitted locally at [facility] in March 2024. 04/03/2024 CT abd: did not show anything acute; CTA chest: nl 04/04/2024 EGD OSH: gastric mass biopsy showed WD 2.5 cm gastric neuroendocrine tumor, Ki67 3% Interval History: Ms. Tyler is here today unaccompanied for her appointment. She complains of abdominal discomfort. Denies n/v. Eating ok. C/o occasional constipation. Had colonoscopy yesterday at [facility] - she was not prepped enough so [...] office ifthey had further questions. Total time SALES ACCOUNT MANAGER spent prior to patient visit obtaining and reviewing records, and with patient reviewing HPI, pertinent medical, surgical and social history and conducting physical exam: 25 minutes. Karolina Piedra, INDIRA, FLIGHT RADIO OFFICER-SALES ACCOUNT MANAGER Nurse Practitioner, GI Surgical Oncology Attending Physician Note I interviewed and examined this patient with the TRIMMER HAND/fellow/resident. I reviewed the history and exam detailed [...] needed. Blas Rod MD documented in this encounterCity Hospital01-08-2025 [facility]01-07-2025 Evaluation note* Diagnosis Onset Date [...] 24 1:02pm Obesity chronic September 24 1:02pm [facility] Work Phone: 1(137) 597-972001-07-2025 Evaluation note* Diagnosis Onset Date Resolution Status [...] sleep apnea acute A pril 2024 12:32pm [facility] Work Phone: [phone]) 560-437612-03-2024 Nurse Surgical operation note* Kam Manjarrez RN - 06/23/2024 3:19 PM EST MD greer to DC. IV removed. DC teaching reviewed. Pt declines help getting dressed. Family present. [facility] Nurse Note* Kam Manjarrez RN - 06/23/2024 3:19 PM EST MD greer to CRISTY. IV removed. DC teaching reviewed. Pt declines help getting dressed. Family present. documented in this encounterCity Hospital2024 History and physical note* Blas Merrill MD - 06/23/2024 1:00 PM EST ENDOSCOPIC PREPROCEDURE HISTORY AND PHYSICAL HISTORY OF PRESENT ILLNESS: Leroy Tyler is a 58 y.o. female seen in the preoprocedure area at [facility] ENDOSCOPY. The indication for endoscopic evaluation includes: Neuroendocrine tumor. PAST MEDICAL HISTORY: Past Medical History: Diagnosis Date Anxiety Arthritis Cirrhosis of liver Diabetes mellitus GERD (gastroesophageal reflux disease) History of cancer Hyperlipidemia Hyperthyroidism Liver disease KODI (obstructive sleep apnea) Renal disease SURGICAL HISTORY: Past Surgical History: Procedure Laterality Date COLONOSCOPY DIAGNOSTIC 2017 x 2 DILATION AND CURETTAGE LAP CHOLECYSTECTOMY [facility] MEDICATIONS: Current Outpatient Medications Medication Instructions Albuterol [...] using Monitored Anesthesia Care. Blas Merrill MD [facility]2024 History and physical note* Blas Merrill MD - 06/23/2024 1:00 PM EST ENDOSCOPIC PREPROCEDURE HISTORY AND PHYSICAL HISTORY OF PRESENT ILLNESS: Leroy Tylre is a 58 y.o. female seen in [...] x 2 DILATION AND CURETTAGE LAP CHOLECYSTECTOMY [facility] MEDICATIONS: Current Outpatient Medications Medication Instructions Albuterol [...] Care. Blas Merrill MD documented in this [facility]11-18-2024 Evaluation note * Diagnosis Onset [...] 2024 12:37pm Obstructive sleep apnea acute F [facility] 2024 12:37pm Diabetes chronic September 24 1:02pm High triglycerides chronic September 24, 2024 1:02pm Hypertension chronic September 24, 2 025 1:02pm Hypothyroidism chronic September 24, 2024 1:02pm Neuropathy chronic September 24 1:02pm Obesity chronic September 24 1:02pm [facility] Work Phone: 1(357) 142-931911-01-2024 Note. MICRO - Microbiology PROCEDURE: Urine Culture [*1] SOURCE: Urine, Clean Catch BODY SITE: COLLECTED DATE/TIME: 05/21/2024 09:24 EDT RECEIVED DATE/TIME: 05/21/2024 16:13 EDT START DATE/TIME: 05/21/2024 16:14 EDT FREE TEXT SOURCE: FINAL REPORTS Final Report [] Verified Date/Time/Personnel: 05/22/2024 14:03 EDT 50,000 - 100,000 cfu/ml Mixed growth consistent with normal urogenital keiko. Performing Locations *1: This test was performed at: [facility], [address] [place] [address], [phone] , [facility]10-17-2024 History and physical note* Karolina Piedra, FLIGHT RADIO OFFICER-SALES ACCOUNT MANAGER, DNP - 05/07/2024 8:30 AM EDT Images [...] to use CPAP). She presents to [facility] clinic for surgical [...] x 2 DILATION AND CURETTAGE LAP CHOLECYSTECTOMY [facility] Allergies Allergen Reactions Bactrim [Sulfamethoxazole-Trimethoprim] Blisters Codeine [...] Resource Strain: Low Risk (02/08/2021) Received from [facility] Overall Financial Resource Strain (CARDIA) Difficulty of Paying Living Expenses: Not very hard Food Insecurity: No Food Insecurity (02/08/2021) Received from [facility] Hunger Vital Sign Worried About Running Out of Food in the Last Year: Never true Ran Out of Food in the Last Year: Never true Transportation Needs: No Transportation Needs (02/08/2021) Received from [facility] PRAPARE - Transportation Lack of Transportation (Medical): No Lack of Transportation (Non-Medical): No Physical Activity: Inactive (02/08/2021) Received from [facility] Exercise Vital Sign Days of Exercise per Week: 0 days Minutes of Exercise per Session: 0 min Stress: Not on file Social Connections: Socially Isolated (02/08/2021) Received from [facility] Social Connection and Isolation Panel [NHANES] Frequency of Communication with Friends and Family: Twice a week Frequency of Social Gatherings with Friends and Family: Twice a week Attends Worship Services: Never Active Member of Clubs or [...] office with any further questions. Total time SALES ACCOUNT MANAGER spent prior to patient visit obtaining and reviewing records, and with patient reviewing HPI, pertinent medical, surgical and social history and conducting physical exam: 25 minutes. Karolinator Piedra DNP, ELMER Nurse Practitioner, GI Surgical Oncology [facility]10-17-[facility]24 History and physical note* ELMER Dumont [...] to use CPAP). She presents to [facility] On[facility] clinic for surgical [...] x 2 DILATION AND CURETTAGE LAP CHOLECYSTECTOMY [facility] Allergies Allergen Reactions Bactrim [Sulfamethoxazole-Trimethoprim] Blisters Codeine [...] Resource Strain: Low Risk (02/08/2021) Received from [facility] Overall Financial Resource Strain (CARDIA) Difficulty of Paying Living Expenses: Not very hard Food Insecurity: No Food Insecurity (02/08/2021) Received from [facility] Hunger Vital Sign Worried About Running Out of Food in the Last Year: Never true Ran Out of Food in the Last Year: Never true Transportation Needs: No Transportation Needs (02/08/2021) Received from [facility] PRAPARE - Transportation Lack of Transportation (Medical): No Lack of Transportation (Non-Medical): No Physical Activity: Inactive (02/08/2021) Received from [facility] Exercise Vital Sign Days of Exercise per Week: 0 days Minutes of Exercise per Session: 0 min Stress: Not on file Social Connections: Socially Isolated (02/08/2021) Received from [facility] Social Connection and Isolation Panel [NHANES] Frequency of Communication with Friends and Family: Twice a week Frequency of Social Gatherings with Friends and Family: Twice a week Attends Worship Services: Never Active Member of Clubs or [...] office with any further questions. Total time SALES ACCOUNT MANAGER spent prior to patient visit obtaining and reviewing records, and with patient reviewing HPI, pertinent medical, surgical and social history and conducting physical exam: 25 minutes. Karolina Piedra DNP, KHADIJAH-ALEXEI Nurse Practitioner, GI Surgical Oncology documented in this encounterOSU [facility]10-17-20[facility] History of Present illness Narrative* Blas [...] or concerns arise. documented in this encounterOSU [facility]10-17-2024 Instructions* Patient Instructions* Mari Kaba RN - 05/07/2024 8:30 AM EDT Survey Following your visit today, you may receive a survey via text or email asking about your experience. We are always looking for ways to improve your visit. Please share your feedback and comments withus- We would love to hear from you! Medicaid Managed Care Plan Transportation Scheduling Line ([phone]) Call Sandy, lining caser, with questions or issues [phone] documented in this encounterU [facility]10-15-2024 Note* Exam Date Time Procedure Performing Provider Status 05/05/24 8:35 AM Echocardiogram, Adult - CV Auth (Verified) [facility] 09-17-2024 [facility]09-09-2024 Hospital Discharge instructions Patient Education [...] bent back when typing. You may use yvzh-jxc-kmqgjzo pain medicine to treat pain and inflammation, [...] Your whole arm becomes swollen or weak [phone] [employer] [address] [place] [address]. All rights reserved. This information is not intended as a substitute for professional medical care. Always follow yourhealthcare professional's instructions. Follow Up Care 03/30/2024 02:46:19 With:VERO ORTEZ Address: [address] [place] [phone] When:2-4 days [facility] 09-09-2024 Note Discharge Instructions Thank you for allowing [facility] to assist you with your healthcare needs. The following is importantdischarge information regarding your hospital visit. Diagnosis from Today's Visit Wrist pain What to Do Next Instructions from Your Care Team No qualifying data available. Post Acute Orders No qualifying data available. You Need to Schedule the Following Appointments Follow Up with VERO ORTEZ When:Within 2-4 days Where:[address] [place] [id number] [phone] Allergies Bactrim Blisters codeine Swelling penicillin Rash [...] bent back when typing. You may use uxqo-yjr-umraagx pain medicine to treat pain and inflammation, [...] Your whole arm becomes swollen or weak [phone] [employer] [address] [place] [address], [place] [address]. All rights reserved. This information is not intended as a substitute for professional medical care. Always follow yourhealthcare professional's instructions. Additional Information VACCINATE! IT SAVES LIVES! Members of the community who have not yet received the COVID-19 vaccine and would like to receive it can visit one of [facility] vaccine clinics. There are many vaccine clinic locations within the [facility]. For locations and available times, please visit www.gettheshot.coronavirus.[place].gov/. It is important to note that some COVID mobile vaccine clinics are held outdoors and may be canceled in rainy or stormy conditions. To learn more about pediatric vaccinations (ages 5-11), we invite you to visit the [facility] webpage. https://[email or web address]/[email or web address] stions.htmlTo learn more about the COVID-19 vaccine, we invite you to visit the CDC website for a list of frequently asked questions. https://www.cdc.gov/coronavirus/2019-ncov/vaccines/faq.html [facility] Patient Portal Access Instructions: Stay connected with your healthcare team and access your personal medical information anytime with the [facility] Patient Portal. If you would like a full copy of your medical records please contact the [facility] Medical Records Department Saturday through Saturday between 8a.m. and 4:30p.m. Please follow the directions below to access the portal: 1.Access the email account you provided upon registration to the hospital.2.Look for an invitation email from [facility].3.Open the email and access the invitation link: Accept Invitation to [facility]4.Fill in the required hatch to create your account. Sign into [email or web address] with your username and password that you [...] you will allow to register on the [facility] Patient Portal for access to your information. You can also access the [facility] Patient Portal on the [employer] bong. Simply click on Health Records under [email or web address] and then click on the [facility] logo. [...] Call your local pharmacy or go to [email or web address]/[email or web address] to find one close to you.3.Make use of household items: Use cat litter or old coffee grounds to dispose medications if other options arenot available. Mix your drugs with these household products, seal them in an airtight container andthrow it into the garbage. Call [facility]: [phone] to be sure your drugs can be [...] aware that I should contact my doctor. Patient/Ring Sorter Signature: Date/Time: Relationship to Patient: Witness Name/Signature: Date/Time: [facility]09-09-2024 Note ORIGINAL EXAMINATION: THREE XRAY VIEWS [...] Date: 03/30/2024 3:29:35 AM [facility] Note. MICRO - Microbiology PROCEDURE: Urine [...] Locations *1: This test was performed at: [address], [facility] , [facility]03-16-2024 Note ORIGINAL EXAMINATION: ONE SUPINE XRAY VIEW(S) [...] Sign Date: 03/16/2024 9:06:05 AM Ordering Provider: [facility]08-17-2024 [facility]08-08-2024 Note. MICRO - Microbiology PROCEDURE: Urine Culture [O1 *1] SOURCE: Urine BODY SITE: COLLECTED DATE/TIME: 02/25/2024 09:25 EDT RECEIVED DATE/TIME: 02/25/2024 16:13 EDT START DATE/TIME: 02/25/2024 16:13 EDT FREE TEXT SOURCE: FINAL REPORTS Final Report [] Verified Date/Time/Personnel: 02/27/2024 08:58 EDT >100,000 cfu/ml Escherichia coli Refer to previous culture for susceptibility. [id number] >100,000 cfu/ml Escherichia coli #2 Refer to previous culture for susceptibility. [id number] PRELIMINARY REPORTS Preliminary Report [] Verified Date/Time/Personnel: 02/26/2024 12:09 EDT Culture results pending. SUSCEPTIBILITY RESULTS Escherichia coli Antibiotic SHAHEEN Dilut SHAHEEN Inter ID Panel Not Not Applicable Applicable Escherichia coli #2 Antibiotic SHAHEEN Dilut SHAHEEN Inter ID Panel Not Not Applicable Applicable Order Comments O1: Urine Culture Added by Discern Performing Locations *1: This test was performed at: [facility], [address] [place] [address], [facility] , [facility]02-27-2024 Note. MICRO - Microbiology PROCEDURE: Urine Culture [...] <=0.5/9.5 Susceptible Sulfa Escherichia coli #2 Antibiotic SHAHEEN Dilut SHAHEEN Inter Ampicillin >16 [...] Locations *1: This test was performed at: [facility], [address] [place] [address], [facility]02-25-2024 Hospital Discharge instructions Patient Education 02/25/2024 14:12:06 [...] out oCatheter stops draining for 6 hours [phone] [employer] [address] [place] [address]. All rights reserved. This information is not [...] Carry a medical ID card or a [employer] USB drive. Or wear a medical alert [...] keep having episodes of high blood sugar. [phone] [employer] [address] [place] [address]. All rights reserved. This information is not intended as a substitute for professional medical care. Always follow yourhealthcare professional's instructions. Follow Up Care 02/25/2024 09:01:39 With:VERO ORTEZ Address: [address] [facility] [place] [phone] When:2-4 days [facility] 08-06-2024 Note Discharge Instructions Thank you for allowing [facility] to assist you with your healthcare needs. The following is importantdischarge information regarding your hospital visit. Diagnosis from Today's Visit Hyperglycemia UTI - Urinary tract infection What to Do Next Instructions from Your Care Team No qualifying data available. Post Acute Orders No qualifying data available. You Need to Schedule the Following Appointments Follow Up with VERO ORTEZ When:Within 2-4 days Where:0 [facility] [place] [address]- [phone] Allergies Bactrim Blisters codeine Swelling penicillin Rash [...] out oCatheter stops draining for 6 hours [phone] [employer] [address], [place] [address]. All rights reserved. This information is not [...] Carry a medical ID card or a BrandShield drive. Or wear a medical alert bracelet [...] keep having episodes of high blood sugar. [phone] [employer] [address] [place] [address], [place] [address]. All rights reserved. This information is not intended as a substitute for professional medical care. Always follow yourhealthcare professional's instructions. Additional Information VACCINATE! IT SAVES LIVES! Members of the community who have not yet received the COVID-19 vaccine and would like to receive it can visit one of [facility] vaccine clinics. There are many vaccine clinic locations within the [facility]. For locations and available times, please visit www.gettheshot.coronavirus.[place].gov/. It is important to note that some COVID mobile vaccine clinics are held outdoors and may be canceled in rainy or stormy conditions. To learn more about pediatric vaccinations (ages 5-11), we invite you to visit the [facility] webpage. https://[email or web address]/pages/[email or web address]-Fxhwa-Wwthwljkjzv-Bxbkxrqggu-Zdvsl-Tqg stions.htmlTo learn more about the COVID-19 vaccine, we invite you to visit the CDC website for a list of frequently asked questions. https://www.cdc.gov/coronavirus/2019-ncov/vaccines/faq.html [facility] Access Instructions: Stay connected with your healthcare team and access your personal medical information anytime with the [facility]. If you would like a full copy of your medical records please contact the [facility] Medical Records Department Saturday through Saturday between 8a.m. and 4:30p.m. Please follow the directions below to access the portal: 1.Access the email account you provided upon registration to the [facility].2.Look for an invitation email from [facility].3.Open the email and access the invitation link: Accept Invitation to hdtMEDIA4.Fill in the required hatch to create your account. Sign into [email or web address].Backyard with your username and password that you [...] you will allow to register on the [facility] Patient Portal for access to your information. You can also access the [facility] Patient Portal on the [employer]. Simply click on Health Records under [email or web address] and then click on the Explain My Surgery logo. HOW TO SAFELY DISPOSE OF PRESCRIPTION [...] Call your local pharmacy or go to [email or web address] to find one close to you.3.Make use of household items: Use cat litter or old coffee grounds to dispose medications if other options arenot available. Mix your drugs with these household products, seal them in an airtight container andthrow it into the garbage. Call [facility]: [phone] to be sure your drugs can be [...] aware that I should contact my doctor. Patient/Ring Sorter Signature: Date/Time: Relationship to Patient: Witness Name/Signature: Date/Time: [facility]08-06-2024 Note ORIGINAL EXAMINATION: CT OF THE [...] Sign Date: 02/25/2024 12:00:15 PM Ordering Provider: [facility]06-27-2024 Note. MICRO - Microbiology PROCEDURE: Urine Culture [...] Locations *1: This test was performed at: [facility], [address] [place] [address], [id number]- , [facility]08-19-2023 Evaluation + Plan note Future Scheduled Tests Radiology* US Abdomen Complete 08/19/23 [facility] 12-12-2023 History of Present illness Narrative* Melissa Cabrales, OD - 07/02/2023 10:30 AM EST 1. Dry eye syndrome of bilateral lacrimal glands Patient had good success with dissolvable plugs Instilled permanent [place] plugs (0.4mm RLL, 0.5mm LLL) 2. Punctate keratitis of right eye Continue gel nightly and artificial tears 2-3x daily 3. Type 2 diabetes mellitus without retinopathy (HCC) Monitor 4. Regular astigmatism of both eyes 5. Presbyopia Reprinted spec rx Follow-up in 8 months for Diabetic eye exam and dry eye follow-up Melissa Cabrales, OD July 02, 2023 10:30 AM documented in this encounterRegional Medical Center11-07-2023 Miscellaneous Notes* Telephone Encounter - Alison Rogel [...] Pt reports she has a Merena. Saw SPECIAL EDUCATION SUPERVISOR within last week. Se contacted SPECIAL EDUCATION SUPERVISOR and they advised contacting PCP of sx's. [...] -has fatigue 11. : Has Svetlana, saw research neuropsychologist last week Protocols used: Abdominal Pain - [id number] documented in this encounterRegional Medical Center10-27-2023 Instructions* Patient Instructions* Merna Krueger APRN.SALES ACCOUNT MANAGER - 05/17/2023 11:34 AM EDT PATIENT PREOPERATIVE INSTRUCTIONS Rosamaria Caruso MD has scheduled you for your procedure at this surgery center: [facility]: [phone] -- [address] [facility] [address]. Please read below carefully for your personalized [...] 100,000 unit/mL suspension IF needed DEXCOM G7 COAGULATING OPERATOR misc DEXCOM G7 SENSOR nelly phenazopyridine (PYRIDIUM) [...] Procedures: - YOU MUST HAVE A RESPONSIBLE CRITICAL SYSTEMS TECHNICIAN TAKE YOU HOME. A AIR VALVE REPAIRER OR MUSEUM PREPARATOR CANNOT BE MADE A RESPONSIBLE CRITICAL SYSTEMS TECHNICIAN. - We recommend that a responsible person [...] Advance Directive, please fax a copy to [phone] or email to for it to be [...] day. Merna Krueger APRN.CNP documented in this encounterRegional Medical Center10-27-2023 History and physical note * Merna Krueger [...] Morbid obesity with BMI of 50.0-59.9, adult ([facility]) Assessment: Body mass index is 50.07 kg/m . Type 2 diabetes mellitus without complication, with long-term current use of insulin ([facility]) Assessment: IDDM and oral agent, has NOT been taking the Ozempic due to insurance coverage per pt, following OSH endo Hemoglobin A1C (%) Date Value 02/18/2023 10.8 04/17/2023 Jaziel Drake, SALES ACCOUNT MANAGER, [facility] Colitis Assessment: hx, recent hospitalization 04/18/2023-04/20/2023 Below copied from [facility]: Chief Complaint: Abd Pain Informant: patient [...] Stable - Continue with home medications [facility] Course: Per HPI: LEROY TYLER, is a 57 F who presented to the emergency department at [facility] due to abdominal pain that was [...] obesity aswell as sleep apnea and diastolic CHF/EGV-78-rsxu-old female presented to the hospital with abdominal [...] transition her to cefdinir secondary to her SHHAEEN for the ciprofloxacin being 1 and having [...] large neck Non-male patient STOP-Bang Score: 7 [id number] Score: Age: <65 Sex: female CHF history: Yes Hypertension history: Yes Stroke/TIA/thromboembolism history: No Vascular disease history: No Diabetes history: Yes [id number] Score: 4 ARISCAT Score: Age: 51-80 Preoperative [...] Morbid Obesity With Bmi of 50.0-59.9, Adult ([place]) Occult Blood Positive Stool Irritability Essential Hypertension [...] and peripheral neuropathy. Negative for: cerebral palsy, DAYLIGHT DRILLER tumor, dementia, impaired sensorium, multiple sclerosis, Parkinson's disease, seizures, TIA and strokes. Respiratory: Positive for: obstructive sleep apnea and CPAP/BiPAP compliant. Negative for: asthma, COPD, pneumonia within 6 weeks, tobacco use and URI < 2 weeks. Cardiovascular: Positive for: CHF (on rx), hyperlipidemia and hypertension Negative for: anticoagulation therapy, arrhythmia, atrial fibrillation, CAD, chest pain, congenitalheart defect, DVT/PE, recent OK, murmur/valvular heart disease, PVD, open heart surgery and valve surgery. GI: Positive for: GERD and inflammatory bowel disease (hx colitis) Negative for: abdominal pain, dysphagia, hepatitis, irritable bowel syndrome, liver disease, nausea, pancreatitis, vomiting and ETOH >2 drinks/day. : Positive for: nephrolithiasis (remote hx), renal failure and urinary tract infection (recurrent). Patient's renal failure is chronic. Negative for: urinary incontinence. SPECIAL EDUCATION SUPERVISOR: Negative for abnormal vaginal bleeding, abnormal vaginal [...] daily until gone. Taking Yes DEXCOM G7 COAGULATING OPERATOR misc Taking Yes DEXCOM G7 SENSOR nelly [...] or any previous visit (from the past 78627 hour(s)). Prepared for Surgery: optimally prepared for [...] 11:33 AM PAGER/CONTACT #: documented in this encounterRegional Medical Center10-17-2023 History of Present illness Narrative* Yessy White [...] 4 times daily until gone. DEXCOM G7 COAGULATING OPERATOR misc DEXCOM G7 SENSOR nelly APPLY 1 [...] entered by the nurse and reviewed by va Nursing Notes: Saundra Qiu LPN 05/07/2023 1:15 [...] mail. Yessy White PA-C documented in this encounterRegional Medical Center10-17-2023 Nurse Note* Saundra Qiu LPN - 05/07/2023 [...] 2017 Saundra Qiu LPN documented in this encounterRegional Medical Center10-13-2023 History of Present illness Narrative* Papa Douglass MD - 05/03/2023 10:00 AM EDT Chief Complaint Patient presents with: Hospital F/U Immunizations: Flu vaccination HPI Leroy Tyler is a 57 year old female who presents here today for Hospital Discharge Follow up.. Pt was admitted to [facility] on 04/18/23 with c/o abdominal pain. [...] wondering if she needs to see a operations and maintenance supervisor, hospitalist said she had stage 1 renal failure, Endo Dr. Cervantes said CKD Stage 3. Blood sugars have been running 300 to 400. She did not restart her CPAP machine. Oxygen had improved before being discharged, was not d/c with any prescription Oxygen, was not needed. Below copied from [facility]: Chief Complaint: Abd Pain Informant: patient [...] Stable - Continue with home medications DVT: [facility] Course: Per HPI: LEROY TYLER, is a 57 F who presented to the emergency department at [facility] due to abdominal pain that was [...] obesity aswell as sleep apnea and diastolic CHF/SKY-65-zviz-old female presented to the hospital with abdominal [...] Anemia Chronic kidney disease, stage III (moderate) (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 Encounter for screening [...] Past Histories independently gathered by the clinical mining support worker and the remaining scribed note accurately describes [...] AM. Cecilia Lopez Ma documented in this encounterRegional Medical Center10-11-2023 Miscellaneous Notes* Telephone Encounter - Trena Narvaez [...] MELA GARCIA Pharmacy Information Pharmacy Address Telephone [id number] [place] [address] Trena Narvaez RN * Telephone [...] Saturday. Natalya Osman RN documented in this encounterRegional Medical Center09-30-2023 Discharge summary Author Sergo Bustillos [facility] April 20, 2023 10:09am Note Date/Time April 20, 2023 9:45am [facility] Medical Records Department [address] [place] [address] Instructions for Home/Discharge Instructions 04/20/23 0944 MR#: [id number] Acct: [id number] Name: LEROY TYLER Rep #:[id number] : 1965 57 From: Sergo brand [...] sensor q 10 days (DME) Dexcom G7 Framing And Hanging Misc See Rx Instructions .Route Qty: 1 [...] DO; Dr. Papa Douglass MD ~ Signed [facility] Work Phone: 1(222) 862-590209-29-2023 Progress note Author Sergo Bustillos [facility] April 19, 2023 12:43pm Note Date/Time April 19, 2023 12:43pm [facility] Medical Records Department [address] [place] [address] Progress Note - Hospitalist 04/19/23 1237 MR#: [id number] Acct: [id number] Name: LEROY TYLER Rep #:[id number] : 1965 57 From: Sergo brand MD PCP: Dr. Papa Douglass MD Status:AD M IN Location: [place] [address] Subjective Subjective Doing well, no issues overnight. [...] % (Auto) 59.7, Lymph % (Auto) 27.2, [place] % (Auto) 6.4, Eos % (Auto) 3.8, [...] DVT: Lovenox Charges/Coding Visit Charges Inpatient E&M: 01202 Subs Hosp L2 04/19/23 1243 <Electronically signed by Sergo Bustillos MD> Cosigner Signature (if applicable): CC: ~ Signed [facility] Work Phone: 1(107) 291-899309-28-2023 Progress note Author Cecilia Villa [facility] April 18, 2023 6:05pm Note Date/Time April 18, 2023 4:35pm [facility] Medical Records Department [address] [place] [address] Progress Note - Hospitalist 04/18/23 1635 MR#: [id number] Acct: [id number] Name: LEROY TYLER ANGEL Rep #:[id number] : 1965 57 From: Cecilia Villa DO PCP: Dr. Papa Douglass MD Status:AD M IN Location: [place] [address] Hospitalist Note ABG was obtained and I [...] Cosigner Signature (if applicable): cc: ~* Signed [facility] Work Phone: [phone] Discharge summary Author Candy Archuleta [facility] April 18, 2023 4:18pm Note Date/Time April 18, 2023 11:17am [facility] Medical Records Department [address] [place] [address] Emergency Department Summary 04/18/23 MR#: [id number] Acct: [id number] Name: LEROY TYLER Rep #:[id number] : 1965 57 From: Candy Griffith PCP: Dr. Papa Douglass MD Status:AD M IN Location: [address] History of Present Illness Chief Complaint: [...] chronic UTIs as well as yeast infections. [facility] Medical History Anemia Arthritis Back pain Bloody [...] [Rx Last Taken Unknown] blood sugar diagnostic ([facility] FloridaTouch Verio test strips) #100 ea 02/18/23 [Rx Last Taken Unknown] blood-glucose meter,continuous (Dexcom G7 Framing And Hanging) #1 ea 02/18/23 [Rx Last Taken Unknown] [...] 71.2 H Lymph % (Auto) 18.9 L [place] % (Auto) 5.3 Eos % (Auto) 2.7 [...] Clarity Cloudy Urine pH 6.0 Ur Specific Leon 1.015 Urine Protein 30 H Urine Glucose [...] Management Discussion w/another healthcare provider: Hospitalist and Stain Dipper Discharge Plan Triage Chief Complaint: Abd Pain ED Provider: Candy Archuleta Dx/Rx/DC Orders Clinical Impression: Hypoxia, Colitis, Leg edema, Hyperglycemia Primary Care Provider: Papa Douglass Disposition Disposition: Acute Care Hospital [facility] Discharge Date/Time: 04/18/23 16:16 What to do if you have Problems For any increased pain, shortness of breath, bleeding, nausea or vomiting, chest pain, or any unexpected problems, contact your Primary Care Provider. Call [facility] ([phone]) or report to the closest Emergency Room. Call 911 if necessary. 04/18/23 1618 <Electronically signed by Candy Archuleta DO> Cosigner Signature (if applicable): CC: Dr. Papa Douglass MD ~ Signed [facility] Work Phone: 1(235) 962-601309-28-2023 History and physical note Author Cecilia Villa [facility] April 18, 2023 4:10pm Note Date/Time April 18, 2023 4:05pm [facility] Medical Records Department [address] [place] [address] H&P Exam - Hospitalist 04/18/23 1521 MR#: [id number] Acct: [id number] Name: LEROY TYLER Rep #:[id number] : 1965 57 From: Cecilia Villa DO PCP: Dr. Papa Douglass MD Status:AD M IN Location: [facility] NAU093- 1 HPI - General General Date of Admission: 04/18/23 Date of Service: 04/18/23 Chief Complaint: abdominal pain HPI Narrative LEROY TYLER, is a 57 F who presented to the emergency department at [facility] due to abdominal pain that was [...] and Dopplers of her legs with edema. [facility] Medical History Anemia Arthritis Back pain Bloody [...] [Rx Last Taken Unknown] blood sugar diagnostic ([facility] FloridaTouch Verio test strips) #100 ea 02/18/23 [Rx Last Taken Unknown] blood-glucose meter,continuous (Dexcom G7 Framing And Hanging) #1 ea 02/18/23 [Rx Last Taken Unknown] [...] Clarity Cloudy, Urine pH 6.0, Ur Specific Leon 1.015, Urine Protein 30 H, Urine Glucose [...] 71.2 H, Lymph % (Auto) 18.9 L, [place] % (Auto) 5.3, Eos % (Auto) 2.7, [...] emergency department Charges/Coding Visit Charges Inpatient E&M: 95015 Init Hosp L3 04/18/23 1610 <Electronically signed by Cecilia Villa DO> Cosigner Signature (if applicable): CC: Dr. Cecilia Villa DO; Dr. Papa Douglass MD~ Signed [facility] Work Phone: 1([phone]) 467-184508-15-2023 Instructions* Patient Instructions* JerniganDipikaMari D, - 03/05/2023 [...] allow to air dry. There are also press machine operator recommendations included with your stockings. Skin care- [...] palm of the gloved will help you patent attorney the stocking while putting it on. Be [...] are wearing the most effective size. Locations: [facility]- [phone] [employer] [phone] www.[employer]- [phone] www.[employer]- [phone] Located in [facility] [place] local store and schedule a fitting. documented in this encounterRegional Medical Center08-15-2023 History of Present illness Narrative* Mari Jernigan DO - 03/05/2023 8:24 AM EDT Images from the original note were not included. [facility] DEPARTMENT OF VASCULAR SURGERY OUTPATIENT VISIT DATE [...] Grandfather Stroke Paternal Grandmother MEDICATIONS: DEXCOM G7 COAGULATING OPERATOR misc DEXCOM G7 SENSOR nelly APPLY 1 [...] and Positive for rash PHYSICAL EXAM: VITALS: [facility] 09/27/2013 General: Alert, oriented, cooperative, healthy appearance [...] 2023 TIME: 8:24 AM documented in this encounterRegional Medical Center08-14-2023 Miscellaneous Notes* Telephone Encounter - Natalya Osman RN - 03/04/2023 8:21 AM EDT Patient notified. Natalya Osman RN * Telephone Encounter - Mela Garcia APRN.CNP - 03/03/2023 1:05 PM EDT Please notify pt - The cephalexin she is taking should resolve her UTI. Mela Garcia APRN.ALEXEI documented in this encounterRegional Medical Center08-11-2023 Miscellaneous Notes* Telephone Encounter - Mela Garcia APRN.CNP - 03/01/2023 5:52 PM EDT Cephalexin and pyridium prescribed. Pt notified. Mela Garcia APRN.SALES ACCOUNT MANAGER * Telephone Encounter - Dolores Badillo RN [...] has multiple allergies to antibiotics. Mela Garcia APRN.ALEXEI * Telephone Encounter - Natalya Osman RN - 03/01/2023 11:01 AM EDT Patient called to inquire about her urine results. Notified that culture will take 48 hours. Patient is miserable she said. Can you please review the UA. pH, Urine Date Value Ref Range Status 02/28/2023 5.5 5.0 - 8.0 Final Specific Leon, Ur Date Value Ref Range Status 02/28/2023 [...] (A) 0-5 /HPF Final documented in this encounterRegional Medical Center08-10-2023 Miscellaneous Notes* Telephone Encounter - Dolores Badillo RN - 02/28/2023 12:56 PM EDT Patient notified. Dolores Badillo RN * Telephone Encounter - Mela Garcia APRN.CNP - 02/28/2023 12:51 PM EDT Orders filed. Mela Garcia APRN.ALEXEI * Telephone Encounter - Dolores Badillo RN - 02/28/2023 11:10 AM EDT Patient calling c/o urinary symptoms again. Recently treated for UTI last month at [facility]. Unsure if symptoms ever resolved completed. Took cephalexin x7 days on 01/23 for it. Asking for order to be placed for her to leave sample at lab. Urine Culture on 01-22-2023 [facility] Organism is too fastidious for routine susceptibility studies. Presumptive Lactobacillus sp. Mcbain Count >100,000 Normal [facility] Comment on above: Performed By: #### L500.2500, L100.0100, L501.9520 #### [facility] [address] [place], [address] Dolores Badillo RN documented in this encounterRegional Medical Center08-08-2023 Miscellaneous Notes* Telephone Encounter - Cecilia Lopez [...] pt. Wanda Ramesh LPN documented in this encounterRegional Medical Center07-02-2023 Discharge summary Author Pranav Ward [facility] January 20, 2023 10:57pm Note Date/Time January 20, 2023 6:44p [facility] Medical Records Department [address] [place] [address] Emergency Department Summary 01/20/23 MR#: [id number] Acct: [id number] Name: LEROY TYLER Rep #:[id number] : 1965 57 From: Pranav Ward [...] <DAVID Bravo - Last Filed: 01/20/23 21:00> [facility] Medical History Anemia Arthritis Back pain Bloody [...] - Last Filed: 01/20/23 21:00> [facility] Lab Data Labs: Laboratory Results - last 24 hr 01/20/23 01/20/23 18:25 18:56 WBC 10.7 RBC 4.89 Hgb 12.8 Hct 40.3 MCV 82.4 MCH 26.2 L MCHC 31.8 L RDW Std Deviation 43.8 RDW Coeff of [place] 14.7 H Plt Count 236 MPV 10.3 Immature Gran % (Auto) 0.600 Neut % (Auto) 64.6 Lymph % (Auto) 26.6 [place] % (Auto) 5.4 Eos % (Auto) 2.0 [...] Clarity Cloudy Urine pH 5.0 Ur Specific Leon 1.020 Urine Protein 100 H Urine Glucose [...] the lungs with minimal congestion/edema. Electronically Signed: Jroge Kilgore MD at 18:57 EDT , Treatment [...] Ward MD - Last Filed: 01/20/23 22:57> [facility] Narrative Medical decision making narrative: I have [...] % (Auto) 64.6 Lymph % (Auto) 26.6 [place] % (Auto) 5.4 Eos % (Auto) 2.0 [...] Clarity Cloudy Urine pH 5.0 Ur Specific Leon 1.020 Urine Protein 100 H Urine Glucose [...] branch block and left anterior fascicular block. SD interval is 124 ms. Cures duration 124 [...] your Primary Care Provider. Call [facility] ([phone]) or report to the closest Emergency Room. Call 911 if necessary. 01/20/232256 <Electronically signed by Pranav Ward MD> Cosigner Signature (if applicable): 01/20/23 2100 <Electronically signed by Joel Mendoza NP-C> CC: Dr. Papa Douglass MD ~ Signed [facility] Work Phone: [phone] 149-663707-01-2023 History of Present illness Narrative* Papa Douglass [...] Past Histories independently gathered by the clinical mining support worker and the remaining scribed note accurately describes [...] AM. Cecilia Lopez Ma documented in this encounterRegional Medical Center06-30-2023 Miscellaneous Notes* Telephone Encounter - Cecilia Lopez [...] completed re: Disability Opers Forms Fax to [phone] [employer] Forms (notice of disability) Fax to [phone] [facility] Non[place] Medical Certification Fax to at [phone] Please contact pt with any questions. Cecilia Lopez Ma documented in this encounterRegional Medical Center06-19-2023 Miscellaneous Notes* Telephone Encounter - Papa Douglass [...] month Protocols used: Diabetes - High Blood Nxhwj-VWGEI-NQ * Telephone Encounter - Gabriella Carrasco LPN [...] to the high readings. documented in this encounterRegional Medical Center06-19-2023 Miscellaneous Notes* Telephone Encounter - Mari Jalloh [...] so Louis Darby DPM documented in this encounterRegional Medical Center05-11-2023 History of Present illness Narrative* Melissa Cabrales, [...] 29, 2022 2:20 PM documented in this encounterRegional Medical Center05-11-2023 Instructions* Patient Instructions* Melissa Cabrales, OD - 11/29/2022 2:17 PM EDT Use warm compresses every morning Use gel/ointment every night Use Systane Complete 2-3 times daily documented in this encounterRegional Medical Center05-02-2023 Miscellaneous Notes* Telephone Encounter - Feliciano Nunez APRN.CNP - 11/20/2022 10:19 AM EDT The [...] you. Wanda Ramesh LPN documented in this encounterRegional Medical Center04-26-2023 Miscellaneous Notes* Telephone Encounter - Karolina Dooley [...] RN * Telephone Encounter - Coco Waters APRN.SALES ACCOUNT MANAGER - 11/14/2022 7:37 AM EDT Can you [...] that she keep scheduled appointments with her tunneling machine operator. Thank you. Coco Waters APRN.CNP documented in this encounterRegional Medical Center04-24-2023 Miscellaneous Notes* Telephone Encounter - Alison Rogel [...] EDT Patient calling asking for referral to [facility] Dr Haile Cervantes, fax number [phone]. Patient would like to see Endocrinology for her thyroid and diabetes issues. Pending consult needs diagnosis. Please advise documented in this encounterRegional Medical Center04-18-2023 Miscellaneous Notes* Telephone Encounter - SHWETHA Fleming - 11/06/2022 2:37 PM EDT Telephoned the patient regarding missed appt. No message left, the mailbox is full. * Telephone Encounter - Kiley Randall [facility] - 10/29/2022 11:15 AM EDT Three calls made to reach patient for today's pharmacy phone visit. All calls go straight to voicemail. Left voicemail for patient. Veena EscotoD, BCACP Primary Care Clinical Pharmacist documented in this encounterRegional Medical Center04-18-2023 Miscellaneous Notes* Telephone Encounter - Kiley Randall [facility] - 11/06/2022 2:21 PM EDT Primary Care Pharmacy Rescheduling Outreach Call center, please contact patient and reschedule telephone visit for Diabetes management within ~4 week(s). (Visit length: 30 minutes) Thank you, Kiley Randall [facility] 11/06/2022 2:21 PM documented in this encounterRegional Medical Center04-06-2023 Miscellaneous Notes* Telephone Encounter - Papa Douglass MD - 10/25/2022 4:16 PM EDT Noted Papa Douglass MD * Telephone Encounter - Jonah Naranjo MD - 10/25/2022 12:14 PM EDT DOC received call from [facility] ER today. Patient had called office [...] heri f/u with PCP/[facility]. documented in this encounterRegional Medical Center04-06-[address] Hernandez [facility] October 25, 2022 11:02am Note Date/Time October 25, 2022 9:15 am [facility] Medical Records Department [address] [place] [address] Emergency Department Summary 10/25/22 MR#: [id number] Acct: [id number] Name: LEROY TYLER Rep #:[id number] 3 : 1965 56 From: Hiram Hernandez [...] % (Auto) 60.3 Lymph % (Auto) 30.7 [place] % (Auto) 5.2 Eos % (Auto) 2.1 [...] your Primary Care Provider. Call [facility] ([phone]) or report to the closest Emergency Room. Call 911 if necessary. 10/25/22 1102 <Electronically signed by Hiram Hernandez DO> Cosigner Signature (if applicable): CC: Dr. Papa Douglass MD ~ Signed [facility] Work Phone: [phone]) 485-987304-04-2023 Miscellaneous Notes* Telephone Encounter - Feliciano Nunez APRN.SALES ACCOUNT MANAGER - 10/23/2022 11:03 AM EDT The following approved medication requests have been transmitted electronically. Requested Prescriptions Pending Prescriptions Disp Refills ferrous sulfate 325 mg (65 mg iron) tablet [Pharmacy Med Name: FERROUS SULFATE 325 MG TABLET] 30 tablet 5 Sig: TAKE 1 TABLET BY MOUTH EVERY DAY Feliciano Nunez APRN.ALEXEI documented in this encounterRegional Medical Center03-20-2023 History of Present illness Narrative* Kiley Randall, [facility] - 10/08/2022 11:00 AM EDT Primary Care Pharmacy Visit CC (Reason for Consult): DM Goal: A1c<8% Last Collaborating Physician/FLIGHT RADIO OFFICER Visit: 10/01/22 Leroy Tyler is a 56 year old female presenting [...] effects MEDICATIONS: Adherence: reports missed doses Pharmacy: [facility] [address] Rx coverage: [employer] Affordability: brand name medications costly on current plan Diabetes supplies: [employer] Organization System: pill box, she travels with it ACTIVE PROBLEM LIST Type II Diabetes Mellitus, Uncontrolled Hypothyroidism History of Anemia Premenopausal Menorrhagia Cellulitis Mixed Hyperlipidemia Vitamin D Deficiency Anemia Vomiting Blood Colitis Bmi 45.0-49.9, Adult (Ltac, [facility]) Occult Blood Positive Stool Irritability Essential Hypertension [...] Ozempic 0.25 mg once weekly - Provided [employer] savings card phone number Continue Metformin ER [...] verbalized understanding of instructions. Kiley Randall PharmD, [facility] Primary Care Clinical Pharmacist The majority of the pharmacy visit (> 50%) was spent counseling and/or coordinating care for thepatient. [Telephonic] time was 20 minutes. documented in this encounterRegional Medical Center03-17-2023 Miscellaneous Notes* Telephone Encounter - Cecilia Lopez [...] Completed form needs to be faxed to [facility] at [phone] ATTN: Georgina Lopez. Pt states she has been approved for 12 weeks of [place] to work on her health. She needs this paperwork completed KEYANNA and faxed back to her employer. Pt states her leave started 09/28/22. Route to [place] when form completed for processing documented in this encounterRegional Medical Center03-14-2023 Miscellaneous Notes* Telephone Encounter - Shea Husain Ma - 10/02/2022 10:00 AM EDT Pt called and notified of results, verbalized understanding. Shea Husain Ma * Telephone Encounter - Feliciano Nunez APRN.CNP - 10/02/2022 9:22 AM EDT Please let the patient know that her COVID and influenza testing was negative. Feliciano Nunez APRN.CNP documented in this encounterRegional Medical Center03-13-2023 Miscellaneous Notes* Telephone Encounter - Coco Waters [...] 325 mg one daily. documented in this encounterRegional Medical Center03-13-2023 Instructions* Patient Instructions* Coco Waters APRN.CNP - 10/01/2022 9:22 AM EDT Start Zpack, take as directed. May use albuterol inhaler as needed. Continue supportive care at home. Stay well hydrated. Monitor sugars closely at home. Covid/flu test results should be back by tomorrow. Strep was negative. Follow up pending test results or sooner as needed. documented in this encounterRegional Medical Center03-13-2023 History of Present illness Narrative* Coco Waters [...] Continue supportive care at home, may use [id number] cold and cough medications as needed - [...] complication, with long-term current use of insulin ([facility]) - ICD9: 250.00, V58.67, ICD10: E11.9, Z79.4 - Refill provided. - PEN NEEDLE, DIABETIC 31 GAUGE X 12/04 Follow-up pending test results or sooner as needed. Discussed treatment plan and patient voices understanding. Patient's questions answered appropriately. Medications and potential side effects were discussed and patient voices understanding. Coco Waters APRN.CNP This note was partially generated using Kivivi voice recognition system. Note was reviewed for accuracy. There may be minor misspellings or grammar miscues with Kivivi voice recognition. documented in this encounterRegional Medical Center03-09-2023 Instructions* Patient Instructions* Coco Waters APRN.CNP - [...] sugar level consistently (80-130) documented in this encounterRegional Medical Center03-09-2023 History of Present illness Narrative* Coco Waters [...] to 8.0. Refers that insurance only covers B4Mwqnde 6 months. Discussed seeing endocrinology out of the [facility], tried to get in with Dr. Cervantes at [facility], refers she had difficulty scheduling an appointment. Thyroid: Was taking 250 mcg of Synthroid daily, last month thyroid labs that were completed showed a low TSH. Instructed the patient to decrease Synthroid to 200 mcg daily, was not aware of changes recommended. Follows with endocrinology. HOSPITAL/ER FOLLOW UP: Reason for visit: Cough, congestion, generalized weakness Which facility: [facility] ER Date of visit: 09/21/2022 Diagnosis: Viral [...] APRN.CNP This note was partially generated using Kivivi voice recognition system. Note was reviewed for accuracy. There may be minor misspellings or grammar miscues with [employer] voice recognition. documented in this encounterRegional Medical Center03-06-2023 Miscellaneous Notes* Telephone Encounter - Shea Husain [...] completed prior to [facility]. Patient states that she is currently taking [...] you. Coco Waters APRN.CNP documented in this encounterRegional Medical Center03-06-2023 History of Present illness Narrative* Melissa Cabrales, [...] 24, 2022 9:38 AM documented in this encounterRegional Medical Center03-03-[address] Hernandez [facility] September 21, 2022 6:13pm Note Date/Time September 21, 2022 3:18 pm [facility] Medical Records Department [address] [place] [address] Emergency Department Summary 09/21/22 MR#: [id number] Acct: [id number] Name: LEROY TYLER Rep #:[id number] : 1965 56 From: Hiram Hernandez DO PCP: Dr. Papa Doulgass MD Status:RE G ER Location: ED HPI [...] rate of 65 bpm with bifascicular block. SD interval 126 ms, QRS duration 120 ms, [...] % (Auto) 58.1 Lymph % (Auto) 31.8 [place] % (Auto) 5.2 Eos % (Auto) 2.7 [...] Color Urine Clarity Urine pH Ur Specific Leon Urine Protein Urine Glucose (UA) Urine Ketones [...] (Auto) Neut % (Auto) Lymph % (Auto) [place] % (Auto) Eos % (Auto) Baso % (Auto) Absolute Neuts (auto) Absolute Lymphs (auto) Nucleated RBC % Sodium Potassium Chloride Carbon Dioxide Anion Gap BUN Creatinine Estim Creat Clear Calc Est GFR (MDRD) Af Amer Est GFR (MDRD) Non-Af BUN/Creatinine Ratio Glucose Calcium Troponin I High Sens B-Natriuretic Peptide 41.3 Urine Color Yellow Urine Clarity Cloudy Urine pH 5.0 Ur Specific Leon 1.020 Urine Protein 30 H Urine Glucose [...] your Primary Care Provider. Call [facility] ([phone]) or report to the closest Emergency Room. Call 911 if necessary. 09/21/221812 <Electronically signed by Hiram Hernandez DO> Cosigner Signature (if applicable): CC: Dr. Papa Douglass MD ~ Signed [facility] Work Phone: 1(967) 643-469603-03-2023 History of Present illness Narrative* Sabine Borrego APRN.SALES ACCOUNT MANAGER - 09/21/2022 1:57 PM EST Patient came [...] with this care plan. documented in this encounterRegional Medical Center02-14-2023 Miscellaneous Notes* Telephone Encounter - Bia Block RN - 09/04/2022 1:09 PM EST Pharmacy has in stock. Left pt VM to make aware to berry picker machine operator before appointment and not to take at [...] for 09/13/22. [facility] [place] * Telephone Encounter - Dionne Turner MD - 09/04/2022 10:32 AM EST Please contact patient to schedule a graded challenge to nitrofurantoin. Try to schedule for 8 or 9on 09/13. 8:30 on Monday 09/11 is another option. Confirm preferred pharmacy with patient. Give patient's instructions on antihistamine avoidance. Instruct her to berry picker machine operator the prescription to bring to her appointment. [...] Patient calling inquiring if she needs to berry picker machine operator something at the pharmacy and bring with her to her appointment with Dr. Turner on 09/13 for testing. Please advise and call patient on her cell [phone]. Thank you documented in this encounterRegional Medical Center02-14-2023 Miscellaneous Notes* Telephone Encounter - Natalya Osman [...] nitrofurantoin. Mela Garcia APRN.CNP documented in this encounterRegional Medical Center02-10-2023 Miscellaneous Notes* Telephone Encounter - Dolores Badillo [...] AM EST Patient notified. Orders faxed to [facility] infusion center. Please file urine culture order. Dolores Badillo RN * Telephone Encounter - Zee Palacios LPN - 08/31/2022 8:39 AM EST Left message to call office. Patient needs to leave urine sample at lab for urine culture. Per provider due to antibiotic allergies, patient will need Gentamycin 500 mg IV administered. [facility] outpatient infusion center is able to administer te antibiotic today, and will contact patient to set up the a ppointment. Urine culture will need to be collected before receiving antibiotic. documented in this encounterRegional Medical Center02-09-2023 Instructions* Patient Instructions* Dionne Turner MD - [...] for predicting delayed reactions. documented in this encounterRegional Medical Center02-09-2023 History of Present illness Narrative* Dionne Turner [...] suffer from frequent sinopulmonary infections. ASTHMA: See [place] ECZEMA: The patient has no history of eczema. URTICARIA:The patient does not have a history of urticaria and/or angioedema. GERD: See [place] INSECT STING: The patient does not have [...] no. 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 She will likely treat the patient's current [...] arise. Dionne Turner MD documented in this encounterRegional Medical Center02-09-2023 Nurse Note* Randi Recio RN - 08/30/2022 1:57 PM EST Patient here for consult regarding antibiotic allergy. Broke out in hives head to toe as an adult. Feels that she took a couple days. Has some sneezing and nasal congestion, suffers year round. Uses flonase as needed. documented in this encounterRegional Medical Center01-30-2023 Miscellaneous Notes* Telephone Encounter - Coco Waters [...] 08/20/2022 9:40 AM EST Pharmacy verified in [facility] Patient has been identified by name and [...] advise. Natalya Will Pss documented in this encounterRegional Medical Center01-27-2023 Miscellaneous Notes* Telephone Encounter - Sue Garcia [...] she has never been seen by an extruding press operator in the past. Please see pended order [...] voicemail. Unable to leave a message. [facility] Natalya Osman RN * Telephone Encounter - Mela Garcia APRN.CNP - 08/14/2022 7:42 AM EST Please call patient and obtain clinical update on her UTI symptoms. Urine culture results show E. coli which is resistant to many antibiotics. She has listed allergies to the antibiotics that are effective for this bacteria. She will need to see an extruding press operator to determine if her allergies are true allergies so that she can be treated appropriately in the future. A consult order has been pended. Mela Garcia APRN.ALEXEI documented in this encounterRegional Medical Center01-17-2023 Instructions* Patient Instructions* Mela Garcia APRN.CNP - [...] especially fever, back pain, and vomiting. Copyright 5551-4569 [facility]. All rights reserved This information is provided by the [facility] and is not intended to replace the medical advice of your doctor or health care provider. Please consult your health care provider for advice about a specific medical condition. For additional written health information, please contact the [facility] at the [facility] or toll-free extension [phone]. 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 T2DM - FBS 200 this am. Was taking clindamycin 1-2 months ago for tooth infection. No vaginal itching or discharge. OB History T0 L0 SAB0 IAB0 Ectopic0 Multiple0 Live Births0 Associate Professor Of Medicine History LMP: 09/27/2013, IUD Age at Menarche: Age at First : Age at Menopause: Associate Professor Of Medicine History Comments: Sexual Activity: Never; No partner [...] results. Follow- up as needed. Mela Garcia APRN.SALES ACCOUNT MANAGER Medical Decision Making: Problems: Low: Acute, uncomplicated illness or injury Data: Unique test(s) ordered: 2 Risk: Moderate: Drug management Medical Decision Making Level: 3 - Low documented in this encounterRegional Medical Center12-28-2022 Miscellaneous Notes* Telephone Encounter - Papa Douglass MD - 07/18/2022 2:31 PM EST Noted Papa Douglass MD * Telephone Encounter - Semaj Vega RN - 07/18/2022 2:17 PM EST [facility], reports they received a referral from Galile[employer] Waters [employer]p, and have called patient 3 times. The first time could not leave voice mail, the 2nd and 3rd time they did leave voicemail. They also left voicemail on brothers number. Have not heard back from patient, so they are going to toss the referral. documented in this encounterRegional Medical Center12-28-2022 Instructions* Patient Instructions* Marissa Fenton APRN.CNP - 07/18/2022 10:49 AM EST May take an extra dose of hydrochlorothiazide for the next three days documented in this encounterRegional Medical Center12-28-2022 History of Present illness Narrative* Marissa Fenton APRN.CNP - 07/18/2022 10:30 AM EST [...] which included preparing to see the patient, [id number] patient care, completing clinical documentation, obtaining and/or reviewing separately obtained history, performing a medically appropriate examination, counseling and educating the pat ient/family/caregiver, and ordering medications, tests, or procedures. documented in this encounterRegional Medical Center12-19-2022 Miscellaneous Notes* Telephone Encounter - Cecilia Lopez [...] [facility] [place] documented in this encounterRegional Medical Center12-08-2022 Instructions* Patient Instructions* Coco Waters APRN.CNP - 06/28/2022 10:04 AM EST Continue to take Keflex as prescribed. 2. If swelling and redness get worse go to ER. 3. May apply cool compresses to help with pain. 4. May continue with ibuprofen as needed. 5. If you would like to see dermatology, Jaime Le is local to [place]. 6. Follow up as needed. documented in this encounterRegional Medical Center12-08-2022 History of Present illness Narrative* Coco Waters APRN.SALES ACCOUNT MANAGER - 06/28/2022 9:40 AM EST This is a 56 year old female who presents today with: Patient presents with: Acute Visit: sinus issues HISTORY OF PRESENT ILLNESS: Leroy Tyler is a 56 year old female. Patient presents with: Acute Visit: sinus issues Here in the office for sinus concerns. Seen in [facility] on 06/26/22, concerns for erysipelas/Facial infection. Started on Keflex due to penicillin allergy. COVID/flu test was negative. Furs face is mill tender with swelling. Yesterday was first full [...] APRN.ALEXEI This note was partially generated using Kivivi voice recognition system. Note was reviewed for accuracy. There may be minor misspellings or grammar miscues with Kivivi voice recognition. documented in this encounterRegional Medical Center12-06-2022 History of Present illness Narrative* Génesis Zhang PA-C - 06/26/2022 12:34 PM EST Images from the original note were not included. This note was created using MESoft. Subjective Leroy Tyler is a 56 year [...] agreeable. Génesis Zhang PA-C documented in this encounterRegional Medical Center12-01-2022 Instructions* Patient Instructions* Coco Waters APRN.CNP - 06/21/2022 8:35 AM EST Decrease synthroid to 250 mcg. 1 tablet 200 mcg and 1 tablet 50 mcg. Get repeat labs in 6 weeks to check thyroid Schedule appointment with endocrinology, Dr. Cervantes at [facility] Continue to take all diabetes medication as prescribed, start Ozempic 0.25 mg once weekly. Continue to eat low carb and monitor sugars at home. Follow up in 3 months or sooner pending test results. documented in this encounterRegional Medical Center12-01-2022 History of Present illness Narrative* Coco Waters [...] costs. Saw nurse practitioner within endocrinology department ([facility]) in February who referred her to endocrinology. [...] complication, with long-term current use of insulin ([facility]) - ICD9: 250.00, V58.67, ICD10: E11.9, Z79.4 (primary diagnosis) improved control - Continue current medications - Add Ozempic 0.25 mg once weekly SQ. - Encouraged regular aerobic exercise and weight loss - Continue to work on eating a low carb diet, increase water intake. - Patient requesting to see Dr. Cervantes in endocrinology at [facility]. - HGB A1C - COMP METABOLIC [...] discussed and patient voices understanding. Coco Waters APRN.SALES ACCOUNT MANAGER This note was partially generated using Dragon voice recognition system. Note was reviewed for accuracy. There may be minor misspellings or grammar miscues with [employer] voice recognition. 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 documented in this encounterRegional Medical Center09-06-2022 History of Present illness Narrative* Melissa Cabrales [...] continue care with primary care doctor and/or tunneling machine operator to maintain optimum levels as they are important to avoid ocular complications. Encouraged patient to call the office immediately with any changes to vision or visual concerns. Advised to not wait until the next scheduled exam. Follow-up in 6 months for dry eye check Melissa Cabrales, OD March 27, 2022 10:48 AM documented in this encounterRegional Medical Center08-29-2022 Instructions* Patient Instructions* Coco Waters APRN.CNP - [...] or sooner as needed. documented in this encounterRegional Medical Center08-29-2022 History of Present illness Narrative* Coco Waters [...] Just started Trulicity 0.75 mg, needs to berry picker machine operator medication from pharmacy. Fasting sugars 200-300. Refers [...] APRN.ALEXEI This note was partially generated using Kivivi voice recognition system. Note was reviewed for accuracy. There may be minor misspellings or grammar miscues with Kivivi voice recognition. documented in this encounterRegional Medical Center08-24-2022 Instructions* Patient Instructions* Gretchen Fox APRN.CNP - 03/14/2022 1:40 PM EDT SYNTHROID Take 100 mcg tab PLUS 200 mcg tab daily. Recheck your labs on April 25, 2022. TRESIBA Continue per current NOVOLOG Use 44 units with full meal. Use 10 units with a snack. If exercising after meal, use 38-40 units with that meal. START TRULICITY 0.75 once weekly documented in this encounterRegional Medical Center08-24-2022 History of Present illness Narrative* Gretchen Fox [...] at 1-2 am will have snack like relay telegrapher salad, drinks water, and regular popor will [...] RECOMMEND CONSULT TO DM ED and ENDO TEACHER'S ASSISTANT Consult placed RECOMMEND FOLLOWING CHANGES TRESIBA Continue [...] A1C Gretchen Fox CNP documented in this encounterRegional Medical Center08-09-2022 History of Present illness Narrative* Melissa Cabrales, OD - 02/27/2022 4:17 PM EDT 1. Type 2 diabetes mellitus without retinopathy (HCC) Risk of diabetic changes and vision loss can be minimized by tight control of blood sugar, blood pressure, and cholesterol levels. Educated patient to continue care with primary care doctor and/or tunneling machine operator to maintain optimum levels as they are [...] 27, 2022 4:17 PM documented in this encounterRegional Medical Center08-09-2022 Instructions* Patient Instructions* Melissa Cabrales, OD - 02/27/2022 2:42 PM EDT Use Refresh relieva or Systane Complete 2-3 times daily Use Refresh or Systane gel before bedtime documented in this encounterRegional Medical Center08-01-2022 Miscellaneous Notes* Telephone Encounter - Brianda Stapleton [...] yeast infections come back. documented in this encounterRegional Medical Center07-29-2022 Instructions* Patient Instructions* Bia Jacinto APRN.SALES ACCOUNT MANAGER - 02/16/2022 12:49 PM EDT VAGINAL YEAST [...] for diabetes Get tested for HIV/AIDS Copyright 2234-7217 [facility]. All rights reserved. This information is provided by the [facility] and is not intended to replace the medical advice of your doctor or health care provider. Please consult your health care provider for advice about a specific medical condition. For additional written health information, please contact the [employer] at the [facility] or toll-free extension [phone]. This document was last reviewed on: 2004 index#[id number] documented in this encounterRegional Medical Center07-29-2022 History of Present illness Narrative* Bia Jacinto APRN.ALEXEI - 02/16/2022 12:33 PM EDT This note was created using Zeelriter. Subjective Leroy Tyler is a 56 year [...] history is provided by the patient. No educational sign language interpreter was used. Rash This is a new [...] Self swab X 1 Diflucan Bia Jacinto APRN.SALES ACCOUNT MANAGER documented in this encounterRegional Medical Center07-25-2022 Miscellaneous Notes* Telephone Encounter - Papa Douglass MD - 02/12/2022 3:34 PM EDT OK to refill as ordered Papa Douglass MD * Telephone Encounter - Shea Husain Ma - 02/12/2022 3:06 PM EDT Last Rx: 11/21/21 #63 mL 90 days, per med reconciliation. Seha Husain Ma * Telephone Encounter - Jocelyn [...] patient. Jocelyn Cai Pss documented in this encounterRegional Medical Center07-21-2022 History of Present illness Narrative* Papa Douglass [...] Past Histories independently gathered by the clinical mining support worker and the remaining scribed note accurately describes [...] PM. Sheatong Husain Ma documented in this encounterRegional Medical Center04-25-2022 History of Present illness Narrative* Kiley Randall, [facility] - 11/13/2021 1:00 PM EDT Primary Care Pharmacy Visit REASON FOR CONSULT: DM and Medication Reconciliation GOALS: A1c < 8% CONSULTING PROVIDER: Dr. Douglsas Date of Consult: 10/06/21 Leroy Tyler is [...] effects MEDICATIONS: Adherence: reports missed doses Pharmacy: [facility] [address] Rx coverage: [employer] Affordability: no issues Diabetes supplies: [employer] System: pill box, she travels with it ACTIVE PROBLEM LIST Type II Diabetes Mellitus, Uncontrolled Hypothyroidism History of Anemia Premenopausal Menorrhagia Cellulitis Mixed Hyperlipidemia Vitamin D Deficiency Anemia Vomiting Blood Colitis Bmi 45.0-49.9, Adult ([facility], [facility]ated [facility]) Occult Blood Positive Stool Irritability Essential Hypertension [...] complication, with long-term current use of insulin ([facility]) - ICD9: 250.00, V58.67, ICD10: E11.9, [...] Randall PharmD, BCACP Primary Care Clinical Pharmacist [facility] The majority of the pharmacy visit (> 50%) was spent counseling and/or coordinating care for thepatient. [Face to Face] time was 22 minutes. documented in this encounterRegional Medical Center04-25-2022 Instructions* Patient Instructions* Kiley Randall RPh - [...] 2 tablets twice daily documented in this encounterRegional Medical Center04-21-2022 History of Present illness Narrative* Papa Douglass [...] today Papa Douglass MD documented in this encounterRegional Medical Center03-28-2022 Instructions* Patient Instructions* Sasha Schroeder APRN.CNP - 10/16/2021 12:28 PM EDT Naprosyn one tablet twice a day for 2 weeks Tylenol (generic acetaminophen) 500 mg-2 tabs every 8 hrs. as needed pain Xrays were completed and interpreted by the radiologist as negative for acute bony abnormality. documented in this encounterRegional Medical Center03-28-2022 History of Present illness Narrative* Leroy Tobar [...] 16, 2021 11:27 AM documented in this encounterRegional Medical Center03-28-2022 History of Present illness Narrative* Sasha Schroeder APRN.SALES ACCOUNT MANAGER - 10/16/2021 11:17 AM EDT Subjective HPI [...] have confirmed and edited as necessary, the [facility] Review of Systems Constitutional: Negative for chills [...] Follow up with PCP as needed for custodial management - XR HAND GENERAL 3V PA/LAT/OBL [...] evaluation. Sasha Schroeder APRN.ALEXEI documented in this encounterRegional Medical Center03-28-2022 History of Present illness Narrative* Kiley Randall, [facility] - 10/16/2021 10:00 AM EDT Primary Care [...] only taking bolus insulin once daily Pharmacy: [facility] [address] Rx coverage: [employer] Affordability: no issues Diabetes supplies: [employer] System: pill box, she travels with [...] complication, with long-term current use of insulin ([facility]) - ICD9: 250.00, V58.67, ICD10: E11.9, [...] Follow up: Patient is scheduled to see SALES ACCOUNT MANAGER on 01/13/22. Patient to follow up with PharmD on 11/13/21. Patient verbalized understanding of instructions. Kiley Randall PharmD, BCACP Primary Care Clinical Pharmacist [facility] The majority of the pharmacy visit (> 50%) was spent counseling and/or coordinating care for thepatient. [Face to Face] time was 27 minutes. documented in this encounterRegional Medical Center03-28-2022 Instructions* Patient Instructions* Kiley Randall RPh - 10/16/2021 10:00 AM EDT Start pioglitazone 15 mg once daily Change Novolog to 48 units 2 times daily before meals Change Tresiba to 110 units once daily Continue metformin, if able please increase to 2 tablets twice daily documented in this encounterRegional Medical Center03-24-2022 Miscellaneous Notes* Telephone Encounter - Alison Rogel RN - 10/12/2021 2:38 PM EDT Patient returned call and given provider's message below and patient verbalized understanding. Patient is agreeable to trying Lantus insulin. She states she has an upcoming appt with Kiley Randall on 10/16/21, if Kiley or Jessica prefers to discuss this with patient at [...] you. Coco Waters APRN.ALEXEI documented in this encounterRegional Medical Center03-24-2022 Miscellaneous Notes* Telephone Encounter - Alison Rogel RN - 10/12/2021 1:44 PM EDT Opened in error. Mc Rogel RN documented in this encounterRegional Medical CenterDischarge summary Author Dr. Rivera [facility] October 10, 2022 5:59am Note Date/Time October 10, 2022 5:1 4am [facility] Medical Records Department [address] [place] [address] Emergency Department Summary 10/10/22 MR#: [id number] Acct: [id number] Name: LEROY TYLER Rep #:[id number] 1 : 1965 56 From: Sid Rivera [...] has minor rhinorrhea, congestion, cough without dyspnea. [facility] Medical History Anemia Arthritis Back pain Bloody [...] Clarity Turbid Urine pH 6.5 Ur Specific Leon 1.015 Urine Protein 100 H Urine Glucose [...] your Primary Care Provider. Call [facility] ([phone]) or report to the closest Emergency Room. Call 911 if necessary. 10/10/22 0559 <Electronically signed by Sid Rivera MD> Cosigner Signature (if applicable): CC: Dr. Papa Douglass MD ~ Signed [facility] Work Phone: Evaluation + Plan note Future Appointments Appointment Date:07/30/2023 09:00:00 AM Scheduled Provider: Location:[facility] Appointment Type:PC Nurse Lab Appointment Date:08/02/2023 01:30:00 PM Scheduled Provider:VERO ORTEZ Location:[facility] Appointment Type:ZONIA OV Future Scheduled Tests Radiology* CT Thorax w/o Contrast 06/21/23 [facility] Evaluation + Plan note Future Appointments Appointment Date:08/02/2023 01:30:00 PM Scheduled Provider:VERO ORTEZ Location:[facility] Appointment Type:PC OV Appointment Date:08/13/2023 10:00:00 AM Scheduled Provider: Location:[facility] Appointment Type:CT Chest w/o Contrast Future Scheduled Tests Radiology* CT Thorax w/o Contrast 08/13/23 [facility] Evaluation + Plan note Future Appointments Appointment Date:06/30/2024 09:00:00 AM Scheduled Provider:VERO ORTEZ Location:[facility] Appointment Type:PC Wellness Annual Future Scheduled Tests Laboratory* Lipid Profile 01/14/24 * Lipid Profile 07/15/24 * Complete Metabolic Panel 01/14/24 * Complete Metabolic Panel 07/15/24 [facility] Evaluation + Plan note Future Appointments Appointment Date:03/16/2024 08:00:00 AM Scheduled Provider:KURT PINEDA Location:UROLOGY Appointment Type:URO TRIMMER HAND Appointment Date:05/25/2024 02:30:00 PM Scheduled Provider:VERO ORTEZ Location:[facility] Appointment Type:PC OV Appointment Date:06/30/2024 09:00:00 AM Scheduled Provider:VERO ORTEZ APRN-ALEXEI Location:[facility] Appointment Type:PC Wellness Annual Diagnostic Tests Pending * Urine Culture 02/25/24 Future Scheduled Tests Laboratory* Lipid Profile 01/14/24 * Lipid Profile 07/15/24 * Complete Metabolic Panel 01/14/24 * Complete Metabolic Panel 07/15/24 [facility] Evaluation + Plan note Future Appointments Appointment Date:03/02/2024 07:30:00 AM Scheduled Provider:VERO ORTEZ Location:[facility] Appointment Type:PC OV ED Follow Up Appointment Date:03/16/2024 08:00:00 AM Scheduled Provider:KURT PINEDA Location:UROLOGY Appointment Type:URO TRIMMER HAND Appointment Date:05/25/2024 02:30:00 PM Scheduled Provider:VERO ORTEZ Location:[facility] Appointment Type:PC OV Appointment Date:06/30/2024 09:00:00 AM Scheduled Provider:VERO ORTEZ APRN-ALEXEI Location:[facility] Appointment Type:PC Wellness Annual Future Scheduled Tests Laboratory* Lipid Profile 01/14/24 * Lipid Profile 07/15/24 * Complete Metabolic Panel 01/14/24 * Complete Metabolic Panel 07/15/24 [facility] Evaluation + Plan note Future Appointments Appointment Date:03/16/2024 08:00:00 AM Scheduled Provider:KURT PINEDA Location:UROLOGY Appointment Type:URO TRIMMER HAND Appointment Date:05/25/2024 02:30:00 PM Scheduled Provider:VERO ORTEZ Location:[facility] Appointment Type:PC OV Appointment Date:06/30/2024 09:00:00 AM Scheduled Provider:VERO ORTEZ Location:[facility] Appointment Type: Wellness Annual Future Scheduled Tests Laboratory* Lipid Profile 01/14/24 * Lipid Profile 07/15/24 * Complete Metabolic Panel 01/14/24 * Complete Metabolic Panel 07/15/24 [facility] Evaluation + Plan note Future Appointments Appointment Date:03/17/2024 07:30:00 AM Scheduled Provider:JAE AYALA Location:[facility] Appointment Type:PC Acute Appointment Date:05/25/2024 02:30:00 PM Scheduled Provider:VERO ORTEZ Location:[facility] Appointment Type:PC OV Appointment Date:06/30/2024 09:00:00 AM Scheduled Provider:VERO ORTEZ Location:[facility] Appointment Type: Wellness Annual Future Scheduled Tests Laboratory* Urine Culture 03/16/24 * Lipid Profile 01/14/24 * Lipid Profile 07/15/24 * Complete Metabolic Panel 01/14/24 * Complete Metabolic Panel 07/15/24 [facility] Evaluation + Plan note Future Appointments Appointment Date:05/25/2024 02:30:00 PM Scheduled Provider:VERO ORTEZ Location:[facility] Appointment Type:PC OV Appointment Date:06/30/2024 09:00:00 AM Scheduled Provider:VERO ORTEZ Location:[facility] Appointment Type: Wellness Annual Future Scheduled Tests Laboratory* Lipid Profile 01/14/24 * Lipid Profile 07/15/24 * Complete Metabolic Panel 01/14/24 * Complete Metabolic Panel 07/15/24 [facility] Evaluation + Plan note Future Appointments [...] Mammo Screening Bilateral w/ Jorge Alberto 03/30/24 [facility] Evaluation + Plan note Future Appointments [...] Mammo Screening Bilateral w/ Jorge Alberto 04/21/24 [facility] Evaluation + Plan note Future Appointments Appointment Date:05/05/2024 08:00:00 AM Scheduled Provider: Location:[facility] Appointment Type:Echo - Echocardiogram Adult Appointment Date:05/11/2024 11:30:00 AM Scheduled Provider:VERO ORTEZ Location:[facility] Appointment Type:PC OV Appointment Date:05/21/2024 09:00:00 AM Scheduled Provider:KURT PINEDA Location:UROLOGY Appointment Type:URO OV Appointment Date:05/25/2024 02:30:00 PM Scheduled Provider:VERO ORTEZ Location:[facility] Appointment Type:PC OV Appointment Date:06/30/2024 09:00:00 AM Scheduled Provider:VERO ORTEZ Location:[facility] Appointment Type:PC Wellness Annual Future Scheduled Tests Laboratory* Lipid Profile 01/14/24 * Lipid Profile 07/15/24 * Complete Metabolic Panel 04/13/24 * Complete Metabolic Panel 01/14/24 * Complete Metabolic Panel 07/15/24 Radiology* MA Mammo Screening Bilateral w/ Jorge Alberto 04/21/24 [facility] Evaluation + Plan note Future Appointments [...] Mammo Screening Bilateral w/ Jorge Alberto 04/21/24 [facility] Evaluation + Plan note Future Appointments [...] Mammo Screening Bilateral w/ Jorge Alberto 04/21/24 [facility] Evaluation + Plan note Future Appointments Appointment Date:05/25/2024 02:30:00 PM Scheduled Provider:VERO ORTEZ Location:[facility] Appointment Type:PC OV Appointment Date:06/30/2024 09:00:00 AM Scheduled Provider:VERO ORTEZ Location:[facility] Appointment Type:PC Wellness Annual Appointment Date:11/02/2024 01:30:00 PM Scheduled Provider:VERO ORTEZ Location:[facility] Appointment Type:PC OV Future Scheduled Tests Laboratory* Complete Metabolic Panel 01/14/24 Radiology* MA Mammo Screening Bilateral w/ Jorge Alberto 04/21/24 [facility] Evaluation + Plan note Future Appointments Appointment Date:11/20/2024 01:30:00 PM Scheduled Provider:KURT PINEDA Location:UROLOGY Appointment Type:URO OV Future Scheduled Tests Laboratory* Urine Culture 09/02/24 * Complete Metabolic Panel 01/14/24 Radiology* MA Mammo Screening Bilateral w/ Jorge Alberto 04/21/24 * MA Mammo Screening Bilateral w/ Jorge Alberto 09/02/24 [facility] Evaluation + Plan note Future Appointments Appointment Date:11/20/2024 01:30:00 PM Scheduled Provider:KURT PINEDA Location:UROLOGY Appointment Type:URO OV Future Scheduled Tests Laboratory* Urine Culture 09/02/24 * Complete Metabolic Panel 01/14/24 Radiology* MA Mammo Screening Bilateral w/ Jorge Alberto 04/21/24 [facility] evaluation + Plan note Future Appointments Appointment Date:11/20/2024 01:30:00 PM Scheduled Provider:KURT PINEDA Location:UROLOGY Appointment Type:URO OV Appointment Date:12/02/2024 01:00:00 PM Scheduled Provider:VERO ORTEZ Location:[facility] Appointment Type:PC OV Appointment Date:02/02/2025 03:30:00 PM Scheduled Provider:VERO ORTEZ Location:[facility] Appointment Type:PC OV Future Scheduled Tests Laboratory* Urine Culture 09/02/24 * Complete Metabolic Panel 01/14/24 Radiology* MA Mammo Screening Bilateral w/ Jorge Alberto 04/21/24 [facility] Evaluation + Plan note Future Appointments Appointment Date:02/02/2025 03:30:00 PM Scheduled Provider:VERO ORTEZ Location:[facility] Appointment Type:PC OV Future Scheduled Tests Laboratory* Urine Culture 09/02/24 * Complete Metabolic Panel 01/14/24 Radiology* MA Mammo Screening Bilateral w/ Jorge Alberto 04/21/24 [facility] Evaluation note* Diagnosis Onychomycosis Dermatophytosis of nail [facility]* Diagnosis Left hand pain- Primary Pain in limb documented in this encounter [facility] note* Diagnosis Type 2 diabetes mellitus without complication, with long-term current use of insulin (HCC)- Primary documented in this encounter [facility] note* Diagnosis Uncontrolled type 2 diabetes mellitus with hyperglycemia (HCC)- Primary documented in this encounter [facility] note* Diagnosis Type 2 diabetes mellitus without complication, with long-term current use of insulin ([facility]) documented in this encounter [facility] note* Diagnosis Uncontrolled type 2 diabetes mellitus with hyperglycemia (HCC)- Primary Hypothyroidism, unspecified type Anxiety with depression Mixed hyperlipidemia Essential hypertension Unspecified essential hypertension Anemia, unspecified type KODI (obstructive sleep apnea) Obstructive sleep apnea (adult) (pediatric) GERD without esophagitis Esophageal reflux documented in this encounter [facility] note* Diagnosis Onset Date Resolution Status Depression acute Hyperglycemia due to diabetes mellitus acute Lactic acidosis acute UTI (urinary tract infection) acute Hypothyroidism [facility] Work Phone: Evaluation note* Diagnosis Onset Date Resolution Status Depression acute Hyperglycemia due to diabetes mellitus acute Lactic acidosis acute Noncompliance with medication regimen acute UTI (urinary tract infection) acute Hypothyroidism chronic [facility] Work Phone: Evaluation note* Diagnosis Type 2 diabetes mellitus without complication, with long-term current use of insulin ([facility]) documented in this encounter [facility] note* Diagnosis Pharyngitis, unspecified etiology- Primary Rash, skin Rash and other nonspecific skin eruption Vaginal itching Pruritus of genital organs documented in this encounter [facility] note* Diagnosis Type 2 diabetes mellitus without retinopathy (HCC)- Primary Type II or unspecified type diabetes mellitus without mention of complication, not stated as uncontrolled Regular astigmatism of both eyes Regular astigmatism Presbyopia Dry eye syndrome of bilateral lacrimal glands Tear film insufficiency, unspecified Punctate keratitis of right eye Punctate keratitis documented in this encounter [facility] note* Diagnosis Uncontrolled type 2 diabetes mellitus with hyperglycemia (HCC)- Primary Hypothyroidism, unspecified type Acquired hypothyroidism Unspecified hypothyroidism Type 2 diabetes mellitus without complication, with long-term current use of insulin ([facility]) documented in this encounter [facility] note* Diagnosis Type 2 diabetes mellitus without complication, with long-term current use of insulin ([facility])- Primary Essential hypertension Unspecified essential hypertension Hypothyroidism, unspecified type documented in this encounter [facility] note* Diagnosis Regular astigmatism of both eyes- Primary Regular astigmatism Presbyopia Dry eye syndrome of bilateral lacrimal glands Tear film insufficiency, unspecified Punctate keratitis of right eye Punctate keratitis Type 2 diabetes mellitus without retinopathy (HCC) Type II or unspecified type diabetes mellitus without mention of complication, not stated as uncontrolled documented in this encounter [facility] note* Diagnosis Onset Date Resolution Status Hyperglycemia due to diabetes mellitus resolved Lactic acidosis resolved UTI (urinary tract infection) resolved [facility] Work Phone: Evaluation noteNo assessment information available [facility] Work Phone: Evaluation note* Diagnosis Type 2 diabetes mellitus without complication, with long-term current use of insulin ([facility])- Primary Hypothyroidism, unspecified type Anxiety with depression documented in this encounter [facility] note* Diagnosis Viral URI- Primary Acute upper respiratory infections of unspecified site Facial infection Other specified infectious and parasitic diseases documented in this encounter [facility] note* Diagnosis Facial infection- Primary Other specified infectious and parasitic diseases Erysipelas [facility]* Diagnosis Bilateral leg edema- Primary Edema documented [facility]* Diagnosis Urinary tract infection with hematuria, site unspecified- Primary [facility]* Diagnosis Allergy to multiple antibiotics- Primary Other drug allergy documented [facility] encounter [facility]* Diagnosis [id number] adverse effect of medication, initial encounter- Primary Allergy to multiple antibiotics Other drug allergy Nonallergic rhinitis Chronic rhinitis [facility] Diagnosis Urinary tract infection with hematuria, site unspecified- Primary Allergy to multiple antibiotics Other drug allergy [facility]* Diagnosis SOB (shortness of breath)- Primary Shortness of breath Bilateral leg edema Edema [facility] encounter [facility]* Diagnosis Dry eye syndrome of bilateral lacrimal glands- Primary Tear film insufficiency, unspecified Regular astigmatism of both eyes Regular astigmatism Presbyopia Type 2 diabetes mellitus without retinopathy (HCC) Type II or unspecified type diabetes mellitus without mention of complication, not stated as uncontrolled [facility]* Diagnosis URI, acute- Primary Acute upper respiratory infections of unspecified site Type 2 diabetes mellitus without complication, with long-term current use of insulin (HCC) Hypothyroidism, unspecified type Iron deficiency anemia secondary to inadequate dietary iron intake Vitamin D deficiency Unspecified vitamin D deficiency documented [facility] this encounter [facility]* Diagnosis Bronchitis- Primary Bronchitis, not specified as acute or chronic Acute cough Sore throat Acute pharyngitis Iron deficiency anemia secondary to inadequate dietary iron intake Type 2 diabetes mellitus without complication, with long-term current use of insulin (HCC) [facility]* Diagnosis Type 2 diabetes mellitus without complication, with long-term current use of insulin (HCC) [facility]* Diagnosis Type 2 diabetes mellitus without complication, with long-term current use of insulin (HCC)- Primary documented [facility] this encounter [facility]* Diagnosis Iron deficiency anemia secondary to inadequate dietary iron intake documented [facility]* Diagnosis Type 2 diabetes mellitus without complication, with long-term current use of insulin (HCC)- Primary Hypothyroidism, unspecified type documented [facility] this encounter [facility]* Diagnosis Bilateral foot pain- Primary Pain in limb documented in this encounter [facility] note* Diagnosis Bilateral leg edema Edema Type 2 diabetes mellitus without complication, with long-term current use of insulin ([facility]) documented in this encounter [facility] note* Diagnosis Dry eye syndrome of bilateral lacrimal glands- Primary Tear film insufficiency, unspecified Regular astigmatism of both eyes Regular astigmatism Presbyopia Type 2 diabetes mellitus without retinopathy (HCC) Type II or unspecified type diabetes mellitus without mention of complication, not stated as uncontrolled documented in this encounter [facility] note* Diagnosis Venous insufficiency- Primary Unspecified venous (peripheral) insufficiency documented in this encounter [facility] note* Diagnosis Pain in both hands- Primary Type 2 diabetes mellitus without complication, with long-term current use of insulin ([facility]) Hypothyroidism, unspecified type History of anemia Personal history of diseases of blood and blood-forming organs Mixed hyperlipidemia Essential hypertension Unspecified essential hypertension Uncontrolled type 2 diabetes mellitus with hyperglycemia (HCC) GERD without esophagitis Esophageal reflux [facility] Hospital note* Diagnosis Dysuria- Primary documented in this encounter [facility] note* Diagnosis Venous (peripheral) insufficiency- Primary Unspecified venous (peripheral) insufficiency Secondary lymphedema Other lymphedema documented in this encounter [facility] note* Diagnosis Onset Date Resolution Status CKD (chronic kidney disease) chronic Diabetes chronic Hypothyroidism chronic Neuropathy chronic Obesity chronic CKD (chronic kidney disease) chronic Diabetes chronic Hypothyroidism chronic Obesity chronic Colitis acute Hyperglycemia acute Hypoxia acute Leg edema acute UTI (urinary tract infection) acute [facility] Work Phone: Evaluation note* Diagnosis Hospital [...] leg edema Edema documented in this encounter [facility] note* Diagnosis History of colonic polyps- Primary Personal history of colonic polyps Colitis Other and unspecified noninfectious gastroenteritis and colitis Encounter for screening colonoscopy Special screening for malignant neoplasms, colon documented in this encounter [facility] note* Diagnosis Pre-operative examination- Primary Preoperative [...] (HCC) Morbid obesity documented in this encounter [facility] note* Diagnosis Dry eye syndrome of bilateral lacrimal glands- Primary Tear film insufficiency, unspecified Punctate keratitis of right eye Punctate keratitis Type 2 diabetes mellitus without retinopathy (HCC) Type II or unspecified type diabetes mellitus without mention of complication, not stated as uncontrolled Regular astigmatism of both eyes Regular astigmatism Presbyopia documented in this encounter [facility] note* Diagnosis Encounter for screening mammogram for breast cancer documented in this encounter [facility] note* Diagnosis Left hand pain Pain [...] (HCC) Morbid obesity documented in this encounter [facility] note* Diagnosis 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 [facility] Diagnosis 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 [facility] Diagnosis 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 [facility] Diagnosis 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 [facility] Diagnosis Neuroendocrine neoplasm of stomach- Primary Neuroendocrine cancer Other malignant neoplasm without specification of site [facility] Diagnosis 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 [facility] Diagnosis Complex care coordination- Primary [facility] Diagnosis Neuroendocrine neoplasm of stomach- Primary Neuroendocrine cancer Other malignant neoplasm without specification of site [facility] Diagnosis Microcytic anemia- Primary Iron deficiency anemia, unspecified [facility] Microcytic anemia- Primary Iron deficiency anemia, unspecified Iron deficiency anemia, unspecified iron deficiency anemia type [facility] Diagnosis 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 [facility] Diagnosis Microcytic anemia- Primary Iron deficiency anemia, unspecified Iron deficiency anemia, unspecified iron deficiency anemia type Neuroendocrine cancer Other malignant neoplasm without specification of site [facility] Pre-operative examination- Primary Preoperative [...] [facility] neoplasm of stomach [facility] Neuroendocrine neoplasm of stomach [facility] Diagnosis Neuroendocrine neoplasm of stomach- Primary Neuroendocrine cancer Other malignant neoplasm without specification of site Hepatosplenomegaly Other chronic nonalcoholic liver disease Elevated transaminase level Nonspecific elevation of levels of transaminase or lactic acid dehydrogenase (LDH) [facility] Narrative No data available for this section [facility] Hospital Discharge instructions Additional Instructions [facility] Discharge instructions Additional Instructions You have a hand contusion which is treated with rest, ice, Tylenol and ibuprofen. Call the now clinic for follow-up.[facility] Work Phone: Hospital Discharge instructions Additional Instructions Eat yogurt daily or take a probiotic to prevent antibiotic associated diarrhea since the azithromycin is still in your system for another 3 days or so.[facility] Work Phone: Hospital Discharge instructions No data available for this section [facility] Hospital Discharge instructions Additional Instructions Your exam and history indicate that your pain is most likely from neuropathy secondary to your diabetes. Take the prescribed medication as directed to help control symptoms. If you develop a fever noticed increased redness or swelling or have any further concerns please return to the ER for repeat evaluation.[facility] Work Phone: Progress note No data available for this section [facility] Reason for referral (narrative)* Diagnostic Procedure Only (Urgent) - Closed Specialty Diagnoses / Procedures Referred By Contac t Referred To Contact XR IMAGING Diagnoses Left hand pain Procedures XR HAND GENERAL 3V PA/LAT/OBL LEFT RADEX HAND MINIMUM 3 VIEWS Sasha Schroeder APRN.CNP [address] [place] [address] Xr Imaging Referral ID Status Reason Start Date Expiration Date V isits Requested Visits Authorized [id number] Closed Auto-Generate d Referral 10/16/2021 11/15/2022 1 1 [facility] [place] [facility] for referral (narrative)* Diagnostic Procedure Only (Routine) - Pending Review Specialty Diagnoses / Procedures Referred By Contac t Referred To Contact XR IMAGING Diagnoses Bilateral foot pain Procedures XR FOOT GENERAL 3V AP/LAT/OBL BILATERAL RADEX FOOT COMPLETE MINIMUM 3 VIEWS Louis Darby [address] [place] [address] Xr Imaging Referral ID Status Reason Start Date Expiration Date Visits Requested Visits Authorized [id number] Pending Review Auto-Generat ed Referral 11/16/2022 12/16/2023 1 1 [facility] [place] [facility] for referral (narrative)* Diagnostic Procedure Only (Routine) - Pending Review Specialty Diagnoses / Procedures Referred By Contac t Referred To Contact BR IMAGING Diagnoses Encounter for screening mammogram for breast cancer Procedures AMY SCREENING SCREENING MAMMOGRAPHY BI 2-VIEW BREAST INC CAD Papa Douglass MD [address] [place] [address] [facility] Imaging [address] [place] [address] Referral ID Status Reason Start Date Expiration Date Visits Requested Visits Authorized [id number] Pending Review Auto-Generat ed Referral 12/18/2023 01/16/2025 1 1 [facility] [place] [facility] for referral (narrative)* Diagnostic Procedure Only (Urgent) - Closed Specialty Diagnoses / Procedures Referred By Contac t Referred To Contact XR IMAGING Diagnoses Left hand pain Procedures XR HAND GENERAL 3V PA/LAT/OBL LEFT RADEX HAND MINIMUM 3 VIEWS Sasha Schroeder FLIGHT RADIO OFFICER.SALES ACCOUNT MANAGER [address] [place] [address] [place] [address] Referral ID Status Reason Start Date Expiration Date V isits Requested Visits Authorized [id number] Closed Auto-Generate d Referral 10/16/2021 11/15/2022 1 1 [facility] [place] [facility] for referral (narrative)No reason for referral information [facility] Reason for visit Narrative* Diagnostic Procedure Only (Urgent) - Closed Specialty Diagnoses / Procedures Referred By Contac t Referred To Contact XR IMAGING Diagnoses Hand injuries, right, initial encounter Procedures XR HAND GENERAL 3V PA/LAT/OBL RIGHT RADEX HAND MINIMUM 3 VIEWS Ravinder Cervantes APRN.SALES ACCOUNT MANAGER [address] [place] [address] [place] [address] Referral ID Status Reason Start Date Expiration Date V isits Requested Visits Authorized [id number] Closed Auto-Generate d Referral 06/15/2022 07/15/2023 1 1 [facility] [place] [facility] for visit Narrative* Diagnostic Procedure Only (Urgent) - Closed Specialty Diagnoses / Procedures Referred By Sherita t Referred To Contact XR IMAGING Diagnoses Left hand pain Procedures XR HAND GENERAL 3V PA/LAT/OBL LEFT RADEX HAND MINIMUM 3 VIEWS Sasha Schroeder, FLIGHT RADIO OFFICER.SALES ACCOUNT MANAGER [address] [place] [address] [place] [address] Referral ID Status Reason Start Date Expiration Date V isits Requested Visits Authorized [id number] Closed Auto-Generate d Referral 10/16/2021 11/15/2022 1 1 [facility] [place] [facility] for visit Narrative* Endoscopy (Routine) - New Request Specialty Diagnoses / Procedures Referred By Sherita mcguire Referred To Contact Diagnoses Neuroendocrine tumor Procedures INTERVENTIONAL UPPER ENDOSCOPY SD EGD TRANSORAL ENDOSCOPIC MUCOSAL RESECTION Blas Merrill MD [address] [facility] [address] [place] [address] Phone: tel: fax: Referral ID Status Reason Start Date Expiration Date V isits Requested Visits Authorized [id number] New Request 06/23/2024 07/18/2025 1 1 [facility] for visit Narrative* MRI/CAT Scan (Routine) - Closed Specialty Diagnoses / Procedures Referred By Sherita mcguire Referred To Contact Diagnoses Neuroendocrine neoplasm of stomach Procedures CT ABDOMEN/PELVIS WITH AND WITHOUT CONTRAST CHG CT ABD&PLV W/O CNTRST 1/BTH FLWD CNTRST 1/BTH Thomas Montero, FLIGHT RADIO OFFICER-SALES ACCOUNT MANAGER [address] [place] [address] Phone: tel: fax: Referral ID Status Reason Start Date Expiration Date Visits Re quested Visits Authorized [id number] Closed 08/27/2024 09/21/2025 1 1 [facility] Advance Directives No Advanced Directives Records FoundDocuments on File Type Date Recorded Patient Ring Sorter Expl anation Advance Directive(s) 02/24/2018 8:23 AM Advance Directive(s) 02/07/2018 12:23 PM Documents on File Type Date Recorded Patient Ring Sorter Expl anation Advance Directive(s) 02/24/2018 8:23 AM Advance Directive(s) 02/07/2018 12:23 PM Advance Directive Response Recorded Date/ Time Advance Directives No March 20, 2016 7:50am Living Will No February 09, 2022 5:58pm Power of Health Services Manager No February 09 5:58pm Advance Directive Response Recorded Date/ Time Advance Directives No March 20, 2016 7:50am Living Will No February 09, 2022 8:41pm Power of Health Services Manager No February 09 8:41pm Advance Directive Response Recorded Date/ Time Advance Directives No March 20, 2016 6:50am Living Will No June 08 9:26pm Power of Health Services Manager No June 08, 2022 9:26pm Advance Directive Response Recorded Date/ Time Advance Directives No March 20, 2016 6:50am Living Will No June 17, 1:03pm Power of Health Services Manager No June 17, 2022 1:03pm Advance Directive Response Recorded Date/ Time Advance Directives No March 20, 2016 6:50am Living Will No August 12 3:33pm Power of Health Services Manager No August 12, 2022 3:33pm Advance Directive Response Recorded Date/ Time Advance Directives No March 20, 2016 6:50am Living Will No September 21, 2022 2:19pm Power of Health Services Manager No September 21 2:19pm Advance Directive Response Recorded Date/ Time Advance Directives No March 20, 2016 7:50am Living Will No October 10, 2022 5:09am Power of Health Services Manager No October 10 5:09am Advance Directive Response Recorded Date/ Time Advance Directives No March 20, 2016 7:50am Living Will No October 25, 2022 9:20am Power of Health Services Manager No October 25 9:20am Advance Directive Response Recorded Date/ Time Advance Directives No March 20, 2016 7:50am Living Will No January 07, 2023 1:17pm Power of Health Services Manager No January 07 1:17pm Advance Directive Response Recorded Date/ Time Advance Directives No March 20, 2016 7:50am Living Will No January 20, 2023 5 :47pm Power of Health Services Manager No January 20, 2023 5:47pm Advance Directive Response Recorded Date/ Time Advance Directives No March 20, 2016 7:50am Living Will No April 18, 2023 5:40pm Power of Health Services Manager No March 5:40pm Advance Directive Response Recorded Date/ Time Living Will No March 04 12:42pm Power of Health Services Manager No March 04 024 12:42pm Living Will No April 08, 2024 11:01am Power of Health Services Manager No March 11:01am Living Will No July 28 3:38pm Power of Health Services Manager No July 28 025 3:38pm Living Will No September 30, 2024 1:34am Power of Health Services Manager No September 30 1:34am Advance Directives No March 11:01am Advance Directive Response Recorded Date/ Time Living Will No April 08, 2024 11:01am Do you have a Healthcare Power of Health Services Manager? No April 08, 2024 11:01am Living Will No July 28 3:38pm Do you have a Healthcare Power of Health Services Manager? No July 28, 2024 3:38pm Living Will No September 30, 2024 1:34am Do you have a Healthcare Power of Health Services Manager? No September 30, 2024 1:34am Advance Directives No March 11:01am Advance Directive Response Recorded Date/ Time Living Will No April 08, 2024 11:01am Do you have a Healthcare Power of Health Services Manager? No April 08, 2024 11:01am Living Will No July 28 3:38pm Do you have a Healthcare Power of Health Services Manager? No July 28, 2024 3:38pm Living Will No September 30, 2024 1:34am Do you have a Healthcare Power of Health Services Manager? No September 30, 2024 1:34am Living Will No November 03, 2024 9:57pm Do you have a Healthcare Power of Health Services Manager? No November 03, 2024 9:57pm Advance Directives No March 11:01am Advance Directive Response Recorded Date/ Time Living Will No April 08, 2024 11:01am Do you have a Healthcare Power of Health Services Manager? No April 08, 2024 11:01am Living Will No September 30, 2024 1:34am Do you have a Healthcare Power of Health Services Manager? No September 30, 2024 1:34am Living Will No November 03, 2024 9:57pm Do you have a Healthcare Power of Health Services Manager? No November 03, 2024 9:57pm Advance Directives No March 11:01am Reason for Referral Specialty Diagnoses / Procedures Referred By Contac t Referred To Contact Endocrinology Diagnoses Uncontrolled type 2 diabetes mellitus with hyperglycemia (HCC) Hypothyroidism, unspecified type Procedures CONSULT TO ENDOCRINOLOGY OFFICE/OUTPATIENT [facility] 60-[place] [address] [place] [id number] Referral ID Status Reason Start Date Expiration Date Visits Requested Visits Authorized [id number] Pending Review PCP Requested Referral 02/08/2022 02/08/2023 1 1 Specialty Diagnoses / Procedures Referred By Contac t Referred To Contact Diagnoses Uncontrolled type 2 diabetes mellitus with hyperglycemia (HCC) Procedures CONSULT TO DIABETES EDUCATION OFFICE/OUTPATIENT [facility] 60-74 MINUTES Gretchen Fox FLIGHT RADIO OFFICER.SALES ACCOUNT MANAGER [address] [place] [address] Referral ID Status Reason Start Date Expiration Date Visits Requested Visits Authorized [id number] Pending Review PCP Requested Referral 03/16/2022 03/16/2023 1 1 Specialty Diagnoses / Procedures Referred By Contac t Referred To Contact Allergy Diagnoses Allergy to multiple antibiotics Procedures CONSULT TO ALLERGY/IMMUNOLOGY OFFICE/OUTPATIENT [facility] 60-74 MINUTES Mela Garcia FLIGHT RADIO OFFICER.SALES ACCOUNT MANAGER [address] [place] [address] Referral ID Status Reason Start Date Expiration Date Visits Requested Visits Authorized [id number] Pending Review PCP Requested Referral 08/16/2022 08/14/2023 1 1 Specialty Diagnoses / Procedures Referred By Contac t Referred To Contact Endocrinology Diagnoses Type 2 diabetes mellitus without complication, with long-term current use of insulin (HCC) Hypothyroidism, unspecified type Procedures CONSULT TO ENDOCRINOLOGY OFFICE/[facility]IENT [facility] 60-74 MINUTES Papa Douglass MD [address] [place] [address] Referral ID Status Reason Start Date Expiration Date Visits Requested Visits Authorized [id number] Pending Review PCP Requested Referral 11/12/2022 11/12/2023 1 1 Specialty Diagnoses / Procedures Referred By Contac t Referred To Contact Vascular Surgery Diagnoses Venous insufficiency Procedures CONSULT TO VASCULAR SURGERY OFFICE/OUT[facility]IENT [facility] 60-74 MINUTES Louis Darby [address] [place] [address] Referral ID Status Reason Start Date Expiration Date Visits Requested Visits Authorized [id number] Pending Review PCP Requested Referral 01/08/2023 04/08/2023 1 1 Specialty Diagnoses / Procedures Referred By Contac t Referred To Contact General Surgery Diagnoses Colitis Encounter for screening colonoscopy Procedures CONSULT TO GENERAL SURGERY OFFICE/OUTPATIENT [facility] 60-74 MINUTES Papa Douglass MD [address] [place] [address] Referral ID Status Reason Start Date Expiration Date Visits Requested Visits Authorized [id number] Pending Review PCP Requested Referral 05/02/2024 1 1 Specialty Diagnoses / Procedures Referred By Contac t Referred To Contact Diagnoses Neuroendocrine tumor Procedures UPPER EUS SD ESOPHAGOGASTRODUODENOSCOPY US SCOPE W/ADJ STRXRS Karolina Piedra APRN-CNP, INDIRA [address] [place] [address] Referral ID Status Reason Start Date Expiration Date V isits Requested Visits Authorized [id number] New Request 05/07/2024 06/01/2025 1 1 Specialty Diagnoses / Procedures Referred By Contac t Referred To Contact Diagnoses Neuroendocrine tumor Procedures NUC PET NEUROENDOCRINE CHG PET IMAGING CT ATTENUATION SKULL BASE MID-THIGH Karolina Piedra APRN-CNP, DNP [address] [place] [address] Referral ID Status Reason Start Date Expiration Date V isits Requested Visits Authorized [id number] New Request 05/07/2024 06/01/2025 1 1 Specialty Diagnoses / Procedures Referred By Contac t Referred To Contact Clinical Pathology/Laboratory Medicine Diagnoses Neuroendocrine tumor Karolina Piedra APRN-CNP, DNP [address] [place], [place] Referral ID Status Reason Start Date Expiration Date V isits Requested Visits Authorized [id number] New Request 05/07/2024 06/01/2025 1 1 Specialty Diagnoses / Procedures Referred By Contac t Referred To Contact Diagnoses Neuroendocrine tumor Procedures INTERVENTIONAL UPPER ENDOSCOPY SD EGD TRANSORAL ENDOSCOPIC MUCOSAL RESECTION Blas Merrill MD [address] [facility] [address] [place] [address] Referral ID Status Reason Start Date Expiration Date V isits Requested Visits Authorized [id number] New Request 06/23/2024 07/18/2025 1 1 Specialty Diagnoses / Procedures Referred By Contac t Referred To Contact Diagnoses Neuroendocrine neoplasm of stomach Neuroendocrine cancer Procedures CT ABDOMEN/PELVIS WITH AND WITHOUT CONTRAST CHG CT ABD&PLV W/O CNTRST 1/BTH FLWD CNTRST /BTH Scott Berrios MD, MPH [address] [facility] [address] [place] [address] Referral ID Status Reason Start Date Expiration Date V isits Requested Visits Authorized [id number] New Request 07/30/2024 08/24/2025 1 1 Specialty Diagnoses / Procedures Referred By Contac t Referred To Contact Diagnoses Neuroendocrine tumor Procedures NUC PET HEAD TO THIGH Karolina Piedar APRN-CNP, DNP [address] [place], [place] Referral ID Status Reason Start Date Expiration Date Visits Re quested Visits Authorized [id number] Closed 07/02/2024 07/27/2025 1 1 Chief Complaint [...] or prosecute any alcohol or drug abuse patient.[facility] the event this information is protected by the Federal Confidentiality of Alcohol and Drug Abuse Patient Records regulations: The Federal rules restrict any use of the information to criminally investigate or prosecute any alcohol or drug abuse patient.[facility] Center[facility] the event this information is protected by the Federal Confidentiality of Alcohol and Drug Abuse Patient Records regulations: The Federal rules restrict any use of the information to criminally investigate or prosecute any alcohol or drug abuse patient.[facility] CenterIn the event this information is protected by the Federal Confidentiality of Alcohol and Drug Abuse Patient Records regulations: The Federal rules restrict any use of the information to criminally investigate or prosecute any alcohol or drug abuse patient.[facility] CenterIn the event this information is protected by the Federal Confidentiality of Alcohol and Drug Abuse Patient Records regulations: The Federal rules restrict any use of the information to criminally investigate or prosecute any alcohol or drug abuse patient.[facility] CenterIn the event this information is protected by the Federal Confidentiality of Alcohol and Drug Abuse Patient Records regulations: The Federal rules restrict any use of the information to criminally investigate or prosecute any alcohol or drug abuse patient.[facility] Center[facility] the event this information is protected by the Federal Confidentiality of Alcohol and Drug Abuse Patient Records regulations: The Federal rules restrict any use of the information to criminally investigate or prosecute any alcohol or drug abuse patient.[facility] CenterIn the event this information is protected by the Federal Confidentiality of Alcohol and Drug Abuse Patient Records regulations: The Federal rules restrict any use of the information to criminally investigate or prosecute any alcohol or drug abuse patient.[facility] CenterIn the event this information is protected by the Federal Confidentiality of Alcohol and Drug Abuse Patient Records regulations: The Federal rules restrict any use of the information to criminally investigate or prosecute any alcohol or drug abuse patient.[facility] CenterIn the event this information is protected by the Federal Confidentiality of Alcohol and Drug Abuse Patient Records regulations: The Federal rules restrict any use of the information to criminally investigate or prosecute any alcohol or drug abuse patient.[facility] CenterIn the event this information is protected by the Federal Confidentiality of Alcohol and Drug Abuse Patient Records regulations: The Federal rules restrict any use of the information to criminally investigate or prosecute any alcohol or drug abuse patient.[facility] CenterIn the event this information is protected by the Federal Confidentiality of Alcohol and Drug Abuse Patient Records regulations: The Federal rules restrict any use of the information to criminally investigate or prosecute any alcohol or drug abuse patient.[facility] CenterIn the event this information is protected by the Federal Confidentiality of Alcohol and Drug Abuse Patient Records regulations: The Federal rules restrict any use of the information to criminally investigate or prosecute any alcohol or drug abuse patient.[facility] CenterIn the event this information is protected by the Federal Confidentiality of Alcohol and Drug Abuse Patient Records regulations: The Federal rules restrict any use of the information to criminally investigate or prosecute any alcohol or drug abuse patient.[facility] CenterIn the event this information is protected by the Federal Confidentiality of Alcohol and Drug Abuse Patient Records regulations: The Federal rules restrict any use of the information to criminally investigate or prosecute any alcohol or drug abuse patient.[facility] CenterIn the event this information is protected by the Federal Confidentiality of Alcohol and Drug Abuse Patient Records regulations: The Federal rules restrict any use of the information to criminally investigate or prosecute any alcohol or drug abuse patient.[facility] CenterIn the event this information is protected by the Federal Confidentiality of Alcohol and Drug Abuse Patient Records regulations: The Federal rules restrict any use of the information to criminally investigate or prosecute any alcohol or drug abuse patient.[facility] CenterIn the event this information is protected by the Federal Confidentiality of Alcohol and Drug Abuse Patient Records regulations: The Federal rules restrict any use of the information to criminally investigate or prosecute any alcohol or drug abuse patient.[facility] CenterIn the event this information is protected by the Federal Confidentiality of Alcohol and Drug Abuse Patient Records regulations: The Federal rules restrict any use of the information to criminally investigate or prosecute any alcohol or drug abuse patient.[facility] CenterIn the event this information is protected by the Federal Confidentiality of Alcohol and Drug Abuse Patient Records regulations: The Federal rules restrict any use of the information to criminally investigate or prosecute any alcohol or drug abuse patient.[facility] CenterIn the event this information is protected by the Federal Confidentiality of Alcohol and Drug Abuse Patient Records regulations: The Federal rules restrict any use of the information to criminally investigate or prosecute any alcohol or drug abuse patient.[facility] CenterIn the event this information is protected by the Federal Confidentiality of Alcohol and Drug Abuse Patient Records regulations: The Federal rules restrict any use of the information to criminally investigate or prosecute any alcohol or drug abuse patient.[facility] CenterIn the event this information is protected by the Federal Confidentiality of Alcohol and Drug Abuse Patient Records regulations: The Federal rules restrict any use of the information to criminally investigate or prosecute any alcohol or drug abuse patient.[facility] CenterIn the event this information is protected by the Federal Confidentiality of Alcohol and Drug Abuse Patient Records regulations: The Federal rules restrict any use of the information to criminally investigate or prosecute any alcohol or drug abuse patient.[facility] CenterIn the event this information is protected by the Federal Confidentiality of Alcohol and Drug Abuse Patient Records regulations: The Federal rules restrict any use of the information to criminally investigate or prosecute any alcohol or drug abuse patient.[facility] CenterIn the event this information is protected by the Federal Confidentiality of Alcohol and Drug Abuse Patient Records regulations: The Federal rules restrict any use of the information to criminally investigate or prosecute any alcohol or drug abuse patient.[facility] CenterIn the event this information is protected by the Federal Confidentiality of Alcohol and Drug Abuse Patient Records regulations: The Federal rules restrict any use of the information to criminally investigate or prosecute any alcohol or drug abuse patient.[facility] CenterIn the event this information is protected by the Federal Confidentiality of Alcohol and Drug Abuse Patient Records regulations: The Federal rules restrict any use of the information to criminally investigate or prosecute any alcohol or drug abuse patient.[facility] CenterIn the event this information is protected by the Federal Confidentiality of Alcohol and Drug Abuse Patient Records regulations: The Federal rules restrict any use of the information to criminally investigate or prosecute any alcohol or drug abuse patient.[facility] CenterIn the event this information is protected by the Federal Confidentiality of Alcohol and Drug Abuse Patient Records regulations: The Federal rules restrict any use of the information to criminally investigate or prosecute any alcohol or drug abuse patient.[facility] CenterIn the event this information is protected by the Federal Confidentiality of Alcohol and Drug Abuse Patient Records regulations: The Federal rules restrict any use of the information to criminally investigate or prosecute any alcohol or drug abuse patient.[facility] CenterIn the event this information is protected by the Federal Confidentiality of Alcohol and Drug Abuse Patient Records regulations: The Federal rules restrict any use of the information to criminally investigate or prosecute any alcohol or drug abuse patient.[facility] CenterIn the event this information is protected by the Federal Confidentiality of Alcohol and Drug Abuse Patient Records regulations: The Federal rules restrict any use of the information to criminally investigate or prosecute any alcohol or drug abuse patient.[facility] CenterIn the event this information is protected by the Federal Confidentiality of Alcohol and Drug Abuse Patient Records regulations: The Federal rules restrict any use of the information to criminally investigate or prosecute any alcohol or drug abuse patient.[facility] CenterIn the event this information is protected by the Federal Confidentiality of Alcohol and Drug Abuse Patient Records regulations: The Federal rules restrict any use of the information to criminally investigate or prosecute any alcohol or drug abuse patient.[facility] CenterIn the event this information is protected by the Federal Confidentiality of Alcohol and Drug Abuse Patient Records regulations: The Federal rules restrict any use of the information to criminally investigate or prosecute any alcohol or drug abuse patient.[facility] CenterIn the event this information is protected by the Federal Confidentiality of Alcohol and Drug Abuse Patient Records regulations: The Federal rules restrict any use of the information to criminally investigate or prosecute any alcohol or drug abuse patient.[facility] CenterIn the event this information is protected by the Federal Confidentiality of Alcohol and Drug Abuse Patient Records regulations: The Federal rules restrict any use of the information to criminally investigate or prosecute any alcohol or drug abuse patient.[facility] CenterIn the event this information is protected by the Federal Confidentiality of Alcohol and Drug Abuse Patient Records regulations: The Federal rules restrict any use of the information to criminally investigate or prosecute any alcohol or drug abuse patient.[facility] CenterIn the event this information is protected by the Federal Confidentiality of Alcohol and Drug Abuse Patient Records regulations: The Federal rules restrict any use of the information to criminally investigate or prosecute any alcohol or drug abuse patient.[facility] CenterIn the event this information is protected by the Federal Confidentiality of Alcohol and Drug Abuse Patient Records regulations: The Federal rules restrict any use of the information to criminally investigate or prosecute any alcohol or drug abuse patient.[facility] CenterIn the event this information is protected by the Federal Confidentiality of Alcohol and Drug Abuse Patient Records regulations: The Federal rules restrict any use of the information to criminally investigate or prosecute any alcohol or drug abuse patient.[facility] CenterIn the event this information is protected by the Federal Confidentiality of Alcohol and Drug Abuse Patient Records regulations: The Federal rules restrict any use of the information to criminally investigate or prosecute any alcohol or drug abuse patient.[facility] CenterIn the event this information is protected by the Federal Confidentiality of Alcohol and Drug Abuse Patient Records regulations: The Federal rules restrict any use of the information to criminally investigate or prosecute any alcohol or drug abuse patient.[facility] CenterIn the event this information is protected by the Federal Confidentiality of Alcohol and Drug Abuse Patient Records regulations: The Federal rules restrict any use of the information to criminally investigate or prosecute any alcohol or drug abuse patient.[facility] CenterIn the event this information is protected by the Federal Confidentiality of Alcohol and Drug Abuse Patient Records regulations: The Federal rules restrict any use of the information to criminally investigate or prosecute any alcohol or drug abuse patient.[facility] CenterIn the event this information is protected by the Federal Confidentiality of Alcohol and Drug Abuse Patient Records regulations: The Federal rules restrict any use of the information to criminally investigate or prosecute any alcohol or drug abuse patient.[facility] CenterIn the event this information is protected by the Federal Confidentiality of Alcohol and Drug Abuse Patient Records regulations: The Federal rules restrict any use of the information to criminally investigate or prosecute any alcohol or drug abuse patient.[facility] CenterIn the event this information is protected by the Federal Confidentiality of Alcohol and Drug Abuse Patient Records regulations: The Federal rules restrict any use of the information to criminally investigate or prosecute any alcohol or drug abuse patient.[facility] CenterIn the event this information is protected by the Federal Confidentiality of Alcohol and Drug Abuse Patient Records regulations: The Federal rules restrict any use of the information to criminally investigate or prosecute any alcohol or drug abuse patient.[facility] CenterIn the event this information is protected by the Federal Confidentiality of Alcohol and Drug Abuse Patient Records regulations: The Federal rules restrict any use of the information to criminally investigate or prosecute any alcohol or drug abuse patient.[facility] CenterIn the event this information is protected by the Federal Confidentiality of Alcohol and Drug Abuse Patient Records regulations: The Federal rules restrict any use of the information to criminally investigate or prosecute any alcohol or drug abuse patient.[facility] CenterIn the event this information is protected by the Federal Confidentiality of Alcohol and Drug Abuse Patient Records regulations: The Federal rules restrict any use of the information to criminally investigate or prosecute any alcohol or drug abuse patient.[facility] CenterIn the event this information is protected by the Federal Confidentiality of Alcohol and Drug Abuse Patient Records regulations: The Federal rules restrict any use of the information to criminally investigate or prosecute any alcohol or drug abuse patient.[facility] CenterIn the event this information is protected by the Federal Confidentiality of Alcohol and Drug Abuse Patient Records regulations: The Federal rules restrict any use of the information to criminally investigate or prosecute any alcohol or drug abuse patient.[facility] CenterIn the event this information is protected by the Federal Confidentiality of Alcohol and Drug Abuse Patient Records regulations: The Federal rules restrict any use of the information to criminally investigate or prosecute any alcohol or drug abuse patient.[facility] CenterIn the event this information is protected by the Federal Confidentiality of Alcohol and Drug Abuse Patient Records regulations: The Federal rules restrict any use of the information to criminally investigate or prosecute any alcohol or drug abuse patient.[facility] CenterIn the event this information is protected by the Federal Confidentiality of Alcohol and Drug Abuse Patient Records regulations: The Federal rules restrict any use of the information to criminally investigate or prosecute any alcohol or drug abuse patient.[facility] CenterIn the event this information is protected by the Federal Confidentiality of Alcohol and Drug Abuse Patient Records regulations: The Federal rules restrict any use of the information to criminally investigate or prosecute any alcohol or drug abuse patient.[facility] CenterIn the event this information is protected by the Federal Confidentiality of Alcohol and Drug Abuse Patient Records regulations: The Federal rules restrict any use of the information to criminally investigate or prosecute any alcohol or drug abuse patient.[facility] CenterIn the event this information is protected by the Federal Confidentiality of Alcohol and Drug Abuse Patient Records regulations: The Federal rules restrict any use of the information to criminally investigate or prosecute any alcohol or drug abuse patient.[facility] CenterIn the event this information is protected by the Federal Confidentiality of Alcohol and Drug Abuse Patient Records regulations: The Federal rules restrict any use of the information to criminally investigate or prosecute any alcohol or drug abuse patient.[facility] CenterIn the event this information is protected by the Federal Confidentiality of Alcohol and Drug Abuse Patient Records regulations: The Federal rules restrict any use of the information to criminally investigate or prosecute any alcohol or drug abuse patient.[facility] CenterIn the event this information is protected by the Federal Confidentiality of Alcohol and Drug Abuse Patient Records regulations: The Federal rules restrict any use of the information to criminally investigate or prosecute any alcohol or drug abuse patient.[facility] CenterIn the event this information is protected by the Federal Confidentiality of Alcohol and Drug Abuse Patient Records regulations: The Federal rules restrict any use of the information to criminally investigate or prosecute any alcohol or drug abuse patient.[facility] CenterIn the event this information is protected by the Federal Confidentiality of Alcohol and Drug Abuse Patient Records regulations: The Federal rules restrict any use of the information to criminally investigate or prosecute any alcohol or drug abuse patient.[facility] CenterIn the event this information is protected by the Federal Confidentiality of Alcohol and Drug Abuse Patient Records regulations: The Federal rules restrict any use of the information to criminally investigate or prosecute any alcohol or drug abuse patient.[facility] Reason for Visit (unrecogniz ed section and [...] MDM 60-74 MINUTES Papa Douglass MD [address] [place] [address] Referral ID Status Reason Start Date Expiration Date Visits Requested Visits Authorized [id number] Pending Review PCP Requested Referral 02/08/2022 02/08/2023 [...] NEW HIGH MDM 60-74 MINUTES Mela Garcia APRN.[employer] MANAGER [address] [place] [address] Referral ID Status Reason Start Date Expiration Date Visits Requested Visits Authorized [id number] Pending Review PCP Requested Referral 08/16/2022 08/14/2023 [...] GENERAL SURGERY OFFICE/OUTPATIENT NEW HIGH [facility] 60-74 MINUTES Papa Douglass MD [address] [place] [address] Referral ID Status Reason Start Date Expiration Date Visits Requested Visits Authorized [id number] Pending Review PCP Requested Referral 3 05/02/2024 1 1 Reason Comments Consult Reason Comments Abdominal Pain Reason Comments Labs Only Reason Comments New Patient Specialty Diagnoses / Procedures Referred By Contac t Referred To Contact Surgical Oncology Diagnoses Other malignant neuroendocrine tumors Joseluis Riggins, [facility] [address] [place] [address] Blas Rod MD [address] [place] [address] Referral ID Status Reason Start Date Expiration Date Visits Requested Visits Authorized [id number] New Request Surgical Evaluation 04/16/2024 05/11/2025 1 1 Specialty Diagnoses / Procedures Referred By Sherita mcguire Referred To Contact Diagnoses Neuroendocrine tumor Procedures UPPER EUS SD ESOPHAGOGASTRODUODENOSCOPY US SCOPE W/ADJ STRXRS Karolina Piedra APRN-CNP, [facility] [address] [place] [address] Referral ID Status Reason Start Date Expiration Date V isits Requested Visits Authorized [id number] New Request 05/07/2024 06/01/2025 1 1 Reason Comments Follow-up Reason Comments New Patient Pt was hospitalized in March for bleeding tumor - Dr Rod referred for systemic therapy - not a candidate for surgery Specialty Diagnoses / Procedures Referred By Sherita mcguire Referred To Contact Oncology Diagnoses Neuroendocrine tumor Karolina Piedra APRN-CNP, [facility] [address] [place] [address] Referral ID Status Reason Start Date Expiration Date V isits Requested Visits Authorized [id number] New Request 07/09/2024 08/03/2025 1 1 Specialty Diagnoses / Procedures Referred By Sherita mcguire Referred To Contact Diagnoses Neuroendocrine tumor Procedures NUC PET HEAD TO THIGH Karolina Piedra APRN-CNP, [facility] [address] [place] [address] Referral ID Status Reason Start Date Expiration Date Visits Re quested Visits Authorized [id number] Closed 07/02/2024 07/27/2025 1 1 Reason Onset Date Comments Appointment 07/31/2024 Reason Comments Follow-up New Patient follow u pHas been doing ok since last visit Results Labs and scans compl eted on 08/14/24 Reason Onset Date Comments Lab Review 09/21/2024 Reason Comments Foot Pain (Midfoot) Reason Comments Follow-up (Please send link to listed mobile # [phone] C/o having issues with acid reflux and she was recently diagnosed with COVID and is she is currently on treatment for this Care Teams (unrecognized sec tion and content) Industrial Property Appraiser Relationship Specialty Start Date End Date Papa Douglass MD [address] [facility] [place] [address] PCP - General Family Practice 04/27/10 [facility] [address] [facility] [place] [address] Pharmacist Pharmacy 11/13/19 [facility]SS[facility] [address] [facility] [place] [address] Pharmacist Pharmacy 02/16/21 Industrial Property Appraiser Relationship Specialty Start Date End Date Papa Douglass MD [address] [facility] [place] [address] PCP - General Family Practice 04/27/10 Kiley Randall, [facility] [address] [facility] [place] [address] Pharmacist Pharmacy 11/13/19 Jessica Rose, [facility] [address] [facility] [place] [address] Pharmacist Pharmacy 02/16/21 Industrial Property Appraiser Relationship Specialty Start Date End Date Papa Douglass MD [address] [facility] [place] [address] PCP - General Family Practice 04/27/10 Kiley Randall, [facility] [address] [facility] [place] [address] Pharmacist Pharmacy 11/13/19 Jessica Rose, [facility] [address] [place] [address] Pharmacist Pharmacy 02/16/21 Industrial Property Appraiser Relationship Specialty Start Date End Date Papa Douglass MD [address] [facility] [place] [address] PCP - General Family Practice 04/27/10 [facility] Angelnoah[facility] [address] [facility] [place] [address] Pharmacist Pharmacy 11/13/19 Milton, JessicaSS[facility] [address] [facility] [place] [address] Pharmacist Pharmacy 02/16/21 Industrial Property Appraiser Relationship Specialty Start Date End Date Papa Douglass MD [address] [facility] [place] [address] PCP - General Family Practice 04/27/10 Tonia Angelnoah, [facility] [address] [facility] [place] [address] Pharmacist Pharmacy 11/13/19 Milton Jessica[facility] [address] [facility] [place] [address] Pharmacist Pharmacy 02/16/21 Industrial Property Appraiser Relationship Specialty Start Date End Date Papa Douglass MD [address] [facility] [place] [address] PCP - General Family Practice 04/27/10 Willemangela AngelnoahSS[facility] [address] [facility] [place] [address] Pharmacist Pharmacy 11/13/19 Milton Jessica, [facility] [address] [facility] [place] [address] Pharmacist Pharmacy 02/16/21 Industrial Property Appraiser Relationship Specialty Start Date End Date Papa Douglass MD [address] [facility] [place] [address] PCP - General Family Practice 04/27/10 Kiley Randall, [facility] [address] [facility] [place] [address] Pharmacist Pharmacy 11/13/19 AltonJessica, [facility] [address] [facility] [place] [address] Pharmacist Pharmacy 02/16/21 Industrial Property Appraiser Relationship Specialty Start Date End Date Papa Douglass MD [address] [facility] [place] [address] PCP - General Family Practice 04/27/10 Tonia Angelnoah, [facility] [address] [facility] [place] [address] Pharmacist Pharmacy 11/13/19 Alton, Jessica, [facility] [address] [facility] [place] [address] Pharmacist Pharmacy 02/16/21 Industrial Property Appraiser Relationship Specialty Start Date End Date Papa Douglass MD [address] [facility] [place] [address] PCP - General Family Practice 04/27/10 Tonia Angelnoah, [facility] [address] [facility] [place] [address] Pharmacist Pharmacy 11/13/19 Milton, Jessica, [facility] [address] [facility] [place] [address] Pharmacist Pharmacy 02/16/21 Industrial Property Appraiser Relationship Specialty Start Date End Date Papa Douglass MD [address] [facility] [place] [address] PCP - General Family Practice 04/27/10 Tonia Angelnoah, [facility] [address] [facility] [place] [address] Pharmacist Pharmacy 11/13/19 Milton, Jessica, [facility] [address] [facility] [place] [address] Pharmacist Pharmacy 02/16/21 Industrial Property Appraiser Relationship Specialty Start Date End Date Papa Douglass MD [address] [facility] [place] [address] PCP - General Family Practice 04/27/10 Kiley Randall[facility] [address] [facility] [place] [address] Pharmacist Pharmacy 11/13/19 Jessica Rose, [facility] [address] [facility] [place] [address] Pharmacist Pharmacy 02/16/21 Industrial Property Appraiser Relationship Specialty Start Date End Date Papa Douglass MD [address] [facility] [place] [address] PCP - General Family Practice 04/27/10 Kiley Randall[facility] [address] [facility] [place] [address] Pharmacist Pharmacy 11/13/19 Jesscia Rose, [facility] [address] [facility] [place] [address] Pharmacist Pharmacy 02/16/21 Industrial Property Appraiser Relationship Specialty Start Date End Date Papa Douglass MD [address] [facility] [place] [address] PCP - General Family Medicine 04/27/10 Kiley Randall, [facility] [address] [facility] [place] [address] Pharmacist Pharmacy 11/13/19 Jessica Rose, [facility] [address] [facility] [place] [address] Pharmacist Pharmacy 02/16/21 Industrial Property Appraiser Relationship Specialty Start Date End Date Papa Douglass MD [address] [facility] [place] [address] PCP - General Family Medicine 04/27/10 Tonia Kiley, [facility] [address] [facility] [place] [address] Pharmacist Pharmacy 11/13/19 [place] Jessica[facility] [address] [facility] [place] [address] Pharmacist Pharmacy 02/16/21 Industrial Property Appraiser Relationship Specialty Start Date End Date Papa Douglass MD [address] [facility] [place] [address] PCP - General Family Medicine 04/27/10 Kiley Randall, [facility] [address] [facility] [place] [address] Pharmacist Pharmacy 11/13/19 Libby Roseily, [facility] [address] [facility] [place] [address] Pharmacist Pharmacy 02/16/21 Industrial Property Appraiser Relationship Specialty Start Date End Date Papa Douglass MD [address] [facility] [place] [address] PCP - General Family Medicine 04/27/10 Tonia Angelnoah, [facility] [address] [facility] [place] [address] Pharmacist Pharmacy 11/13/19 Alton, Jessica, [facility] [address] [facility] [place] [address] Pharmacist Pharmacy 02/16/21 Industrial Property Appraiser Relationship Specialty Start Date End Date Papa Douglass MD [address] [facility] [facility] [place] [address] PCP - General Family Medicine 04/27/10 Kiley Randall, [facility] [address] [facility] [place] [address] Pharmacist Pharmacy 11/13/19 Jessica Rose, [facility] [address] [facility] [place] [address] Pharmacist Pharmacy 02/16/21 Industrial Property Appraiser Relationship Specialty Start Date End Date Papa Douglass MD [address] [facility] [place] [address] PCP - General Family Medicine 04/27/10 Kiley Randall, [facility] [address] [facility] [place] [address] Pharmacist Pharmacy 11/13/19 Jessica Rose, [facility] [address] [facility] [place] [address] Pharmacist Pharmacy 02/16/21 Industrial Property Appraiser Relationship Specialty Start Date End Date Papa Douglass MD [address] [facility] [place] [address] PCP - General Family Medicine 04/27/10 Kiley Randall, [facility] [address] [facility] [place] [address] Pharmacist Pharmacy 11/13/19 Jessica Rose, [facility] [address] [facility] [place] [address] Pharmacist Pharmacy 02/16/21 Team Status: Active Member [...] Dr. Natalya Chun MD Emergency Provider Active Industrial Property Appraiser Relationship Specialty Start Date End Date Papa Douglass MD [address] [facility] [place] [address] PCP - General Family Medicine 04/27/10 Kiley Randall, [facility] [address] [place] [address] Pharmacist Pharmacy 11/13/19 Jessica Rose, [facility] [address] [facility] [place] [address] Pharmacist Pharmacy 02/16/21 Industrial Property Appraiser Relationship Specialty Start Date End Date Papa Douglass MD [address] [facility] [place] [address] PCP - General Family Medicine 04/27/10 Kiley Randall, [facility] [address] [facility] [place] [address] Pharmacist Pharmacy 11/13/19 Jessica Rose, [facility] [address] [facility] [place] [address] Pharmacist Pharmacy 02/16/21 Industrial Property Appraiser Relationship Specialty Start Date End Date Papa Douglass MD [address] [facility] [facility] [place] [place] [address] PCP - General Family Medicine 04/27/10 Kiley Randall, [facility] [address] [facility] [place] [address] Pharmacist Pharmacy 11/13/19 Jessica Rose, [facility] [address] [facility] [place] [address] Pharmacist Pharmacy 02/16/21 Industrial Property Appraiser Relationship Specialty Start Date End Date Papa Douglass MD [address] [facility] [place] [address] PCP - General Family Medicine 04/27/10 Kiley Randall, [facility] [address] [facility] [place] [address] Pharmacist Pharmacy 11/13/19 [facility] [address] [facility] [place] [address] Pharmacist Pharmacy 02/16/21 Team Status: Inactive Member Role Status Dates Dr. Papa Douglass MD Primary Care Provider Active Dr. Natalya Chun MD Attending Provider, Emergency Provider Active Team Status: Inactive Member Role Status Dates Dr. Papa Douglass MD Primary Care Provider Active Mela Garcia TRIMMER HAND, TRIMMER HAND-C Attending Provider, Referring Pro vider Active Team Status: Inactive Member Role Status Dates Dr. Papa Douglass MD Primary Care Provider Active Dr. Hiram Hernandez DO Emergency Provider Active Industrial Property Appraiser Relationship Specialty Start Date End Date Papa Douglass MD [address] [facility] [place] [address] PCP - General Family Medicine 04/27/10 [facility] [address] [facility] [place] [address] Pharmacist Pharmacy 11/13/19 [facility] [address] [facility] [place] [address] Pharmacist Pharmacy 02/16/21 Industrial Property Appraiser Relationship Specialty Start Date End Date Papa Douglass MD [address] [facility] [place] [address] PCP - General Family Medicine 04/27/10 Angel Randall, [facility] [address] [facility] [place] [address] Pharmacist Pharmacy 11/13/19 Jessica Rose, [facility] [address] [facility] [place] [address] Pharmacist Pharmacy 02/16/21 Industrial Property Appraiser Relationship Specialty Start Date End Date Paap Douglass MD [address] [facility] [place] [address] PCP - General Family Medicine 04/27/10 [facility] [address] [facility] [place] [address] Pharmacist Pharmacy 11/13/19 [facility] [address] [facility] [place] [address] Pharmacist Pharmacy 02/16/21 Industrial Property Appraiser Relationship Specialty Start Date End Date Papa Douglass MD [address] [facility] [place] [address] PCP - General Family Medicine 04/27/10 Kiley Randall, [facility] [address] [facility] [place] [address] Pharmacist Pharmacy 11/13/19 Jessica Rose, [facility] [address] [facility] [place] [address] Pharmacist Pharmacy 02/16/21 Industrial Property Appraiser Relationship Specialty Start Date End Date Papa Douglass MD [address] [facility] [place] [address] PCP - General Family Medicine 04/27/10 [facility] [address] [facility] [place] [address] Pharmacist Pharmacy 11/13/19 Jessica Rose, [facility] [address] [facility] [place] [address] Pharmacist Pharmacy 02/16/21 Team Status: Inactive Member [...] Hernandez DO Referring Provider, Emergency Provider Active Industrial Property Appraiser Relationship Specialty Start Date End Date Papa Douglass MD [address] [facility] [place] [address] PCP - General Family Medicine 04/27/10 [facility] Angel, [facility] [address] [facility] [place] [address] Pharmacist Pharmacy 11/13/19 Milton, Jessica, [facility] [address] [facility] [place] [address] Pharmacist Pharmacy 02/16/21 Industrial Property Appraiser Relationship Specialty Start Date End Date Papa Douglass MD [address] [facility] [place] [address] PCP - General Family Medicine 04/27/10 [facility] Angel, [facility] [address] [facility] [place] [address] Pharmacist Pharmacy 11/13/19 Milton, Jessica, [facility] [address] [facility] [place] [address] Pharmacist Pharmacy 02/16/21 Industrial Property Appraiser Relationship Specialty Start Date End Date Papa Douglass MD [address] [facility] [place] [address] PCP - General Family Medicine 04/27/10 Willem Kiley, [facility] [address] [facility] [place] [address] Pharmacist Pharmacy 11/13/19 AltonLibby griggsily, [facility] [address] [facility] [place] [address] Pharmacist Pharmacy 02/16/21 Industrial Property Appraiser Relationship Specialty Start Date End Date Papa Douglass MD [address] [facility] [place] [address] PCP - General Family Medicine 04/27/10 [facility] [address] [facility] [place] [address] Pharmacist Pharmacy 11/13/19 Jessica Rose, [facility] [address] [facility] [place] [address] Pharmacist Pharmacy 02/16/21 Industrial Property Appraiser Relationship Specialty Start Date End Date Papa Douglass MD [address] [facility] [place] [address] PCP - General Family Medicine 04/27/10 Kiley Randall, [facility] [address] [facility] [place] [address] Pharmacist Pharmacy 11/13/19 Jessica Rose, [facility] [address] [facility] [place] [address] Pharmacist Pharmacy 02/16/21 Team Status: Inactive Member Role Status Dates Dr. Papa Douglass MD Primary Care Provider Active Dr. Hiram Hernandez DO Attending Provid er, Referring Provider, Emergency Provider Active Team Status: Inactive Member Role Status Dates Dr. Papa Douglass MD Primary Care Provider Active Dr. Velasquez Hill DO Emergency Provider Active Industrial Property Appraiser Relationship Specialty Start Date End Date Papa Douglass MD [address] [facility] [place] [address] PCP - General Family Medicine 04/27/10 Industrial Property Appraiser Relationship Specialty Start Date End Date Papa Douglass MD [address] [facility] [place] [address] PCP - General Family Medicine 04/27/10 Industrial Property Appraiser Relationship Specialty Start Date End Date Papa Douglass MD [address] [facility] [place] [address] PCP - General Family Medicine 04/27/10 Industrial Property Appraiser Relationship Specialty Start Date End Date Papa Douglass MD [address] [place] [address] PCP - General Family Medicine 04/27/10 Team Status: Inactive Member Role Status Dates Dr. Papa Douglass MD Primary Care Provider Active Dr. Velasquez Hill DO Attending Provider, Emergency Anderson mckeon Active Team Status: Inactive Member Role Status Dates Dr. Papa Douglass MD Primary Care Provider Active Dr. Pranav Ward MD Emergency Provider Active Industrial Property Appraiser Relationship Specialty Start Date End Date Papa Douglass MD [address] [place] [address] PCP - General Family Medicine 04/27/10 Industrial Property Appraiser Relationship Specialty Start Date End Date Papa Douglass MD [address] [place] [address] PCP - General Family Medicine 04/27/10 Industrial Property Appraiser Relationship Specialty Start Date End Date Papa Douglass MD [address] [place] [address] PCP - General Family Medicine 04/27/10 Industrial Property Appraiser Relationship Specialty Start Date End Date Papa Douglass MD [address] [facility] [place] [address] PCP - General Family Medicine 04/27/10 Industrial Property Appraiser Relationship Specialty Start Date End Date Papa Douglass MD [address] [facility] [place] [address] PCP - General Family Medicine 04/27/10 Team [...] Rebollar Attending Provider, Referring Pr ovider Active Industrial Property Appraiser Relationship Specialty Start Date End Date Papa Douglass MD [address] [place], [place] [address] PCP - General Family Medicine 04/27/10 Industrial Property Appraiser Relationship Specialty Start Date End Date Papa Douglass MD [address] [place], [place] [address] PCP - General Family Medicine 04/27/10 Industrial Property Appraiser Relationship Specialty Start Date End Date Papa Douglass MD [address] [place], [place] [address] PCP - General Family Medicine 04/27/10 Industrial Property Appraiser Relationship Specialty Start Date End Date Papa Douglass MD [address] [facility] [place] [address] PCP - General Family Medicine 04/27/10 Industrial Property Appraiser Relationship Specialty Start Date End Date Papa Douglass MD [address] [facility] [place] [address] PCP - General Family Medicine 04/27/10 Industrial Property Appraiser Relationship Specialty Start Date End Date Papa Douglass MD [address] [facility] [place] [address] PCP - General Family Medicine 04/27/10 Industrial Property Appraiser Relationship Specialty Start Date End Date Papa Douglass MD [address] [facility] [place] [address] PCP - General Family Medicine 04/27/10 Kiley Randall, [facility] [address] [facility] [place] [address] Pharmacist Pharmacy 11/13/19 12/11/22 [facility] [address] [facility] [place] [address] Pharmacist Pharmacy 02/16/21 12/11/22 Industrial Property Appraiser Relationship Specialty Start Date End Date Papa Douglass MD [address] [facility] [place] [address] PCP - General Family Medicine 04/27/10 Kiley Randall, [facility] [address] [facility] [place] [address] Pharmacist Pharmacy 11/13/19 12/11/22 Jessica Rose, [facility] [address] [facility] [facility] [place] [address] Pharmacist Pharmacy 02/16/21 12/11/22 Industrial Property Appraiser Relationship Specialty Start Date End Date Vero Ortez NP [address] [facility] [place] [address] PCP - General Nurse Practitioner - Adult Health 04/16/24 [facility] [address] [address] Oncologist Medical Oncology 04/16/24 Natalya Saavedra, RN Registered Nurse 04/16/24 Rylee Weaver LSW Wardrobe Stylist Social Work 04/20/24 Bruna rFey LISW Wardrobe Stylist 04/20/24 Jaziel Drake MD [address] [place] [phone] Park Superintendent Nurse Practitioner - Family 05/07/24 Mari Kaba, teacher adult educationPersonalization Specialist Oncology 05/07/24 Industrial Property Appraiser Relationship Specialty Start Date End Date Vero Ortez NP [address] [place] [address] PCP - General Nurse Practitioner - [facility] 04/16/24 [facility] [address] [place] [address] Oncologist Medical Oncology 04/16/24 Natalya Saavedra, ALFONZO Registered Nurse 04/16/24 Rylee Weaver LSW Wardrobe Stylist Social Work 04/20/24 Bruna Frey LISW Wardrobe Stylist 04/20/24 Jaziel Drake MD [address] [place] [phone] Park Superintendent Nurse Practitioner - Family 05/07/24 Mari Kaba, teacher adult educationPersonalization Specialist Oncology 05/07/24 Industrial Property Appraiser Relationship Specialty Start Date End Date Vero Ortez NP [address] [facility] [place] [address] PCP - General Nurse Practitioner - Adult Health 04/16/24 Jsoeluis Riggins [facility] [address], [place] [address] Oncologist Medical Oncology 04/16/24 Natalya Saavedra, ALFONZO Registered Nurse 04/16/24 Rylee Weaver, [facility] Wardrobe Stylist Social Work 04/20/24FebBruna pulido LISW Wardrobe Stylist 04/20/24 Jaziel Drake MD [address] [place] [phone] Park Superintendent Nurse Practitioner - Family 05/07/24 Mari Kaba, teacher adult educationPersonalization Specialist Oncology 05/07/24 Industrial Property Appraiser Relationship Specialty Start Date End Date Vero Ortez NP [address] [facility] [place] [address] PCP - General Nurse Practitioner - Adult Health 04/16/24 Joseluis Riggins [facility] [address] [place], [place] [address] Oncologist Medical Oncology 04/16/24 Natalya Saavedra, ALFONZO Registered Nurse 04/16/24 Rylee Weaver LSW Wardrobe Stylist Social Work 04/20/24 Bruna Frey LISW Wardrobe Stylist 04/20/24 Jaziel Drake MD [address] [place] [phone] Park Superintendent Nurse Practitioner - Family 05/07/24 Gia Kilgore, teacher adult education Medical Oncology 07/30/24 Industrial Property Appraiser Relationship Specialty Start Date End Date Vero Ortez NP [address] [facility] [place] [address] PCP - General Nurse Practitioner - Adult Health 04/16/24 Joseluis Riggins [facility] [address] [place], [place] [phone] Oncologist Medical Oncology 04/16/24 Natalya Saavedra, RN Registered Nurse 04/16/24 Rylee Weaver LSW Wardrobe Stylist Social Work 04/20/24 Bruna Frey LISW Wardrobe Stylist 04/20/24 Jaziel Drake MD [address] [place] [phone] Park Superintendent Nurse Practitioner - Family 05/07/24 Gia Kilgore, teacher adult education Medical Oncology 07/30/24 Industrial Property Appraiser Relationship Specialty Start Date End Date Vero Ortez NP [address] [facility] [place] [address] PCP - General Nurse Practitioner - Adult Health 04/16/24 Joseluis Riggins [facility] [address] [address] Oncologist Medical Oncology 04/16/24 Natalya Saavedra, RN Registered Nurse 04/16/24 Rylee Weaver, [facility] Wardrobe Stylist Social Work 04/20/24 [facility] LISW Wardrobe Stylist 04/20/24 Jaziel Drake MD [address] [place] [phone] Park Superintendent Nurse Practitioner - Family 05/07/24 Gia Kilgore, teacher adult education Medical Oncology 07/30/24 Industrial Property Appraiser Relationship Specialty Start Date End Date Vero Ortez NP [address] [place] [address] PCP - General Nurse Practitioner - Adult Health 04/16/24 Joseluis Riggins [facility] [address] [place], [place] [phone] Oncologist Medical Oncology 04/16/24 Natalya Saavedra, ALFONZO Registered Nurse 04/16/24 Rylee Weaver LSW Wardrobe Stylist Social Work 04/20/24FebBruna pulido LISW Wardrobe Stylist 04/20/24 Jaziel Drake MD [address] [place] [phone] Park Superintendent Nurse Practitioner - [facility] 05/07/24 Gia Kilgore, teacher adult education Medical Oncology 07/30/24 07/30/24 Industrial Property Appraiser Relationship Specialty Start Date End Date Vero Ortez NP [address] [place] [address] PCP - General Nurse Practitioner - Adult Health 04/16/24 Joseluis Riggins [facility] [address], [place] [address] Oncologist Medical Oncology 04/16/24 Natalya Saavedra, ALFONZO Registered Nurse 04/16/24 Rylee Weaver LSW Wardrobe Stylist Social Work 04/20/24FebBruna pulido LISW Wardrobe Stylist 04/20/24 Jaziel Drake MD [address] [place] [phone] Park Superintendent Nurse Practitioner - [facility] 05/07/24 Gia Kilgore teacher adult education Medical Oncology 07/30/24 07/30/24 Industrial Property Appraiser Relationship Specialty Start Date End Date Vero Ortez NP [address] [place] [address] PCP - General Nurse Practitioner - Adult Health 04/16/24 Joseluis Riggins [facility] [address] [place], [place] [address] Oncologist Medical Oncology 04/16/24 Natalya Saavedra, ALFONZO Registered Nurse 04/16/24 Rylee Weaver LSW Wardrobe Stylist Social Work 04/20/24 Bruna Frey LISW Wardrobe Stylist 04/20/24 Jaziel Drake MD [address] [place] [phone] Park Superintendent Nurse Practitioner - Family 05/07/24 Industrial Property Appraiser Relationship Specialty Start Date End Date Vero Ortez NP [address] [facility] [address] PCP - General Nurse Practitioner - Adult Health 04/16/24 [facility] [address] [place] [address] Oncologist Medical Oncology 04/16/24 Natalya Saavedra, RN Registered Nurse 04/16/24 Rylee Weaver LSW Wardrobe Stylist Social Work 04/20/24 Bruna Frey LISW Wardrobe Stylist 04/20/24 Jaziel Drake MD [address] [place] [phone] Park Superintendent Nurse Practitioner - [facility] 05/07/24 Industrial Property Appraiser Relationship Specialty Start Date End Date Vero Ortez NP [address] [place] [address] PCP - General Nurse Practitioner - [facility] 04/16/24 [facility] [address] [place] [address] Oncologist Medical Oncology 04/16/24 Natalya Saavedra, ALFONZO Registered Nurse 04/16/24 Rylee Weaver LSW Wardrobe Stylist Social Work 04/20/24 Bruna Frey LISW Wardrobe Stylist 04/20/24 Jaziel Drake MD [address] [place] [phone] Park Superintendent Nurse Practitioner - Family 05/07/24 Industrial Property Appraiser Relationship Specialty Start Date End Date Vero Ortez NP [address] [place] [address] PCP - General Nurse Practitioner - Adult Health 04/16/24 [facility] [address] [place], [place] [address] [phone] Oncologist Medical Oncology 04/16/24 Natalya Saavedra, RN Registered Nurse 04/16/24 Rylee Weaver, [facility] Wardrobe Stylist Social Work 04/20/24 [facility] LISW Wardrobe Stylist 04/20/24 Jaziel Drake MD [address] [place] [phone] Park Superintendent Nurse Practitioner - [facility] 05/07/24 Industrial Property Appraiser Relationship Specialty Start Date End Date Vero Ortez NP [address] [place] [address] PCP - General Nurse Practitioner - Adult Health 04/16/24 [facility] [address] [place], [place] [address] [phone] Oncologist Medical Oncology 04/16/24 Natalya Saavedra, RN Registered Nurse 04/16/24 Rylee Weaver, [facility] Wardrobe Stylist Social Work 04/20/24FebBruna wright LISW Wardrobe Stylist 04/20/24 Jaziel Drake MD [address] [place] [phone] Park Superintendent Nurse Practitioner - [facility] 05/07/24 Industrial Property Appraiser Relationship Specialty Start Date End Date Vero Ortez NP [address] [place] [place] [address] PCP - General Nurse Practitioner - Adult Health 04/16/24 [facility] [address] [place], [place] [address] [phone] Oncologist Medical Oncology 04/16/24 Natalya Saavedra, ALFONZO Registered Nurse 04/16/24 Rylee Weaver LSW Wardrobe Stylist Social Work 04/20/24 Bruna Frey LISW Wardrobe Stylist 04/20/24 Jaziel Drake MD [address] [place] [address] Park Superintendent Nurse Practitioner - Family 05/07/24 Industrial Property Appraiser Relationship Specialty Start Date End Date Papa Douglass MD [address] [place] [address] PCP - General Family Medicine 04/27/10 Vero Ortez CNP [address] [place] [address] [place] [address] Referring Family Medicine 04/07/24 Coco Waters APRN.SALES ACCOUNT MANAGER [address] [place], [place] [address] Care Mgr Family Medicine 06/28/24 Feliciano Nunez APRN.SALES ACCOUNT MANAGER [address] [place], [place] [address] Care Mgr Family Medicine 07/07/24 Team Status: Active Member [...] Member Role Status Dates VERO MAST , TANK ASSEMBLER Primary Care Provider Active Start: June 16, 2024 End: June 16, 2024 Dr. Ralph Singh MD Attending Provider Active Start: June 16, 2024 End: June 16, 2024 Dr. Ralph Singh MD Referring Provider Active Start: June 16, 2024 End: June 16, 2024 Team Status: Inactive Member Role Status Dates VERO MAST , TANK ASSEMBLER Primary Care Provider Active Start: July 24, 2024 End: July 24, 2024 Dr. Ralph Singh MD Attending Provider Active Start: July 24, 2024 End: July 24, 2024 Dr. Ralph Singh MD Referring Provider Active Start: July 24, 2024 End: July 24, 2024 Team Status: Inactive Member Role Status Dates VERO MAST , TANK ASSEMBLER Primary Care Provider Active Start: July 28, 2024 End: July 28, 2024 VERO MAST , TANK ASSEMBLER Referring Provider Active Sta rt: July 28, 2024 End: July 28, 2024 Dr. Ralph Singh MD Attending Provider Active Start: July 28, 2024 End: July 28, 2024 Team Status: Inactive Member Role Status Dates VERO MAST , TANK ASSEMBLER Primary Care Provider Active Start: July 29, 2024 End: July 29, 2024 Dr. Brayan Cast DO Attending Provider Active Start: July 29, 2024 End: July 29, 2024 Dr. Brayan Cast DO Referring Provider Active Start: July 29, 2024 End: July 29, 2024 Team Status: Active Member Role Status Dates VERO MAST , TANK ASSEMBLER Primary Care Provider Active Start: July 29, 2024 Dr. Brayan Cast DO Attending Provider Active Start: July 29, 2024 Dr. Brayan Cast DO Referring Provider Active Start: July 29, 2024 Dr. Brayan Cast DO Other Provider Active St art: July 29, 2024 Team Status: Inactive Member Role Status Dates VERO MAST , TANK ASSEMBLER Primary Care Provider Active Start: September 04, 2024 End: September 04, 2024 VERO MAST , TANK ASSEMBLER Referring Provider Active Sta rt: September 04, 2024 End: September 04, 2024 DAVID Granado Attending Provider Active Start: September 04, 2024 End: September 04, 2024 Team Status: Inactive Member Role Status Dates VERO MAST , TANK ASSEMBLER Primary Care Provider Active Start: September 24, 2024 End: September 24, 2024 VERO MAST , TANK ASSEMBLER Referring Provider Active Sta rt: September 24, 2024 End: September 24, 2024 CODY RebollarC Attending Provider Active Start: September 24, 2024 End: September 24, 2024 Team Status: Active Member Role Status Dates VERO MAST , TANK ASSEMBLER Primary Care Provider Active Start: September 24, 2024 Dr. Scott Berrios MD Attending Provider Active Start: September 24, 2024 Dr. Scott Berrios MD Referring Provider Active Start: September 24, 2024 Team Status: Active Member Role Status Dates VERO MAST , TANK ASSEMBLER Primary Care Provider Active Start: September 28, 2024 CODY GranadoC Attending Provider Active Start: September 28, 2024 DAVID Granado Referring Provider Active Start: September 28, 2024 Team Status: Inactive Member Role Status Dates VERO MAST , TANK ASSEMBLER Primary Care Provider Active Start: September 30, 2024 End: September 30, 2024 Dr. Steven Mercado , Emergency Provider Active Start: September 30, 2024 End: September 30, 2024 Team Status: Inactive Member Role Status Dates VERO MAST , TANK ASSEMBLER Primary Care Provider Active Start: September 28, 2024 End: September 28, 2024 Elsa José NP-Char Attending Provider Active Start: September 28, 2024 End: September 28, 2024 DAVID Granado Referring Provider Active Start: September 28, 2024 End: September 28, 2024 Team Status: Active Member Role Status Dates VERO MAST , TANK ASSEMBLER Primary Care Provider Active Start: October 05, 2024 DAVID Granado Attending Provider Active Start: October 05, 2024 DAVID Granado Referring Provider Active Start: October 05, 2024 Team Status: Active Member Role Status Dates VERO MAST , TANK ASSEMBLER Primary Care Provider Active Start: October 06, 2024 Elsa M Rufener , TRIMMER HAND-C Attending Provider Active Start: October 06, 2024 [...] November 03, 2024 End: November 03, 2024 Industrial Property Appraiser Relationship Specialty Start Date End Date Papa Douglass MD [facility] [place] [address] PCP - General Family Medicine 04/27/10 Vero Ortez CNP [address] [place] [address] Referring Family Medicine 04/07/24 Coco Waters APRN.SALES ACCOUNT MANAGER [address] [place] [address] Care Mgr Family Medicine 06/28/24 12/02/24 Feliciano Nunez APRN.SALES ACCOUNT MANAGER [facility] [place] [address] Care Mgr Family Medicine 07/07/24 Industrial Property Appraiser Relationship Specialty Start Date End Date Vero Ortez NP PCP - General Nurse Practitioner - Adult Health 04/16/24 Joseluis Riggins MB [facility] [address] [place], [place] [id number] Oncologist Medical Oncology 04/16/24 Natalya Saavedra, ALFONZO Registered Nurse 04/16/24 Rylee Weaver, [facility] Wardrobe Stylist Social Work 04/20/24 Bruna Frey CROCODILE FARMER Wardrobe Stylist 04/20/24 Jaziel Drake MD Park Superintendent Nurse Practitioner - Family 05/07/24 Industrial Property Appraiser Relationship Specialty Start Date End Date Vero Ortez NP PCP - General Nurse Practitioner - Adult Health 04/16/24 Joseluis Riggins MB [facility] [address] [place] [address] Oncologist Medical Oncology 04/16/24 Natalya Saavedra, ALFONZO Registered Nurse 04/16/24 Rylee Weaver, [facility] Wardrobe Stylist Social Work 04/20/24FebBruna pulido CROCODILE FARMER Wardrobe Stylist 04/20/24 Jaziel Drake MD Park Superintendent Nurse Practitioner - Family 05/07/24 Team Status: [...] December 30, 2024 End: December 30, 2024 Industrial Property Appraiser Relationship Specialty Start Date End Date Vero Ortez NP PCP - General Nurse Practitioner - Adult Health 04/16/24 Joseluis Riggins MB [facility] [address] [place] [address] Oncologist Medical Oncology 04/16/24 Natalya Saavedra, ALFONZO Registered Nurse 04/16/24 Rylee Weaver LSW Wardrobe Stylist Social Work 04/20/24 Bruna Frey LISW Wardrobe Stylist 04/20/24 Jaziel Drake MD Park Superintendent Nurse Practitioner - Family 05/07/24 Goals (unrecognized [...] section and content) DATE CREATED AUTHOR 03/22/2024 [facility] ([place]) DATE CREATED AUTHOR AUTHOR'S ORGANIZ ATION 06/17/2024 [facility] DATE CREATED AUTHOR AUTHOR'S ORGANIZ ATION 12/06/2024 [facility] DATE CREATED AUTHOR AUTHOR'S ORGANIZ ATION 12/20/[address] [facility] DATE CREATED AUTHOR AUTHOR'S ORGANIZ ATION 01/08/2025 [facility] DATE CREATED AUTHOR AUTHOR'S ORGANIZ ATION 01/10/2025 [facility] FOR RECORDS PERTAINING TO PATIENTS WHO ARE [...] BE BASED ON THE PRIMARY CLINICAL RECORDS. [facility] [employer] [facility]. provides no warranty or guarantee of the accuracy or completeness of information in this document.
[2025-01-11 01:04] LABS: Bedside Glucose 329 mg/dL (74-106)
--- OUTSIDE RECORDS SUMMARY | 2025-01-11 01:22 | XMS RPT_ITS | CCD ---
Author Organization [facility]iniSyak Care Team Providers Care Lodge Attendant Name Role Phone Papa Douglass MD Primary Care Provider [facility], Keti Unavailable [facility], Jessica Unavailable Dr. Papa Douglass Primary Care Provider Dr. Candy Archuleta Emergency Provider [phone] Dr. Irwin Sorenson[address] Provider Dr. Irwin Sorenson Other Provider Debbie, Dr. Augusta Ferreira Attending Provider [phone] Debbie, Dr. Augusta Ferreira Other Provider Papa Douglass MD Primary Care Provider [facility], Keti Unavailable [facility], Jessica Unavailable Papa Douglass MD Primary Care Provider [facility], Keti Unavailable [facility], Jessica Unavailable Dr. Papa Douglass Primary Care Provider [phone] Dr. Candy Archuleta Emergency Provider Dr. Irwin Sorenson Admit Provider Dr. Irwin Sorenson Other Provider Dr. Augusta Lewis Attending Provider [phone] Debbie, Dr. Augusta Ferreira Other Provider Papa Douglass MD Primary Care Provider [facility], Keti Unavailable [facility], Jessica Unavailable Dr. Papa Douglass Primary Care Provider Dr. Papa Douglass Referring Provider ARVIND Drake-C Jaziel Attending Provider Dr. Candy Archuleta Emergency Provider Dr. Cecilia Villa Admit Provider Dr. Cecilia Villa Attending Provider Dr. Cecilia Villa Other Provider Dr. Nathalie Kelsey Attending Provider Dr. Sergo Bustillos Attending Provider Dr. Sergo Bustillos Other Provider MAST PAPER BALER-CASTING ASSISTANT, VERO Primary Care Physician Papa Douglass MD Primary Care Provider MAST PAPER BALER-CASTING ASSISTANT, VERO Attending Unavailabl e MAST PAPER BALER-CASTING ASSISTANT, VERO Primary Care Unavailabl e VIDAL ROSSC, JAZIEL Attending Unavailable MAST PAPER BALER-CASTING ASSISTANT, VERO Primary Care Unavailabl e BROOKOVER PAPER BALER-CASTING ASSISTANT, KURT Attending Unava ilable MAST PAPER BALER-CASTING ASSISTANT, VERO Primary Care Unavailabl e BROOKOVER PAPER BALER-CASTING ASSISTANT, KURT Attending Unava ilable MAST PAPER BALER-CASTING ASSISTANT, VERO Primary Care Unavailabl e MAST PAPER BALER-CASTING ASSISTANT, VERO Attending Unavailabl e MAST PAPER BALER-CASTING ASSISTANT, VERO Primary Care Unavailabl e MAST PAPER BALER-CASTING ASSISTANT, VERO Attending Unavailabl e MAST PAPER BALER-CASTING ASSISTANT, VERO Primary Care Unavailabl e MAST PAPER BALER-CASTING ASSISTANT, VERO Attending Unavailabl e MAST PAPER BALER-CASTING ASSISTANT, VERO Primary Care Unavailabl e BROOKOVER PAPER BALER-CASTING ASSISTANT, KURT Attending Unava ilable MAST PAPER BALER-CASTING ASSISTANT, VERO Primary Care Unavailabl e TANMAY BRODERICK, DR URSULA Vital Attending Unavailabl e MAST PAPER BALER-CASTING ASSISTANT, VERO Primary Care Unavailabl e DR CINDY ROGERS DO Attending Unavailable MAST PAPER BALER-CASTING ASSISTANT, VERO Primary Care Unavailabl e MAST PAPER BALER-CASTING ASSISTANT, VERO Attending Unavailabl e MAST PAPER BALER-CASTING ASSISTANT, VERO Primary Care Unavailabl e MAST PAPER BALER-CASTING ASSISTANT, VERO Attending Unavailabl e MAST PAPER BALER-CASTING ASSISTANT, VERO Primary Care Unavailabl e MAST PAPER BALER-CASTING ASSISTANT, VERO Attending Unavailabl e MAST PAPER BALER-CASTING ASSISTANT, VERO Primary Care Unavailabl e MAST PAPER BALER-CASTING ASSISTANT, VERO Attending Unavailabl e MAST PAPER BALER-CASTING ASSISTANT, VERO Primary Care Unavailabl e [place], Keti Unavailable [facility], Jessica Unavailable Mast LICENSED EMBALMER SUPERVISOR, Vero Primary Care Provider Unavailabl e Iscmichelleus [facility], Joseluis S Unavailable Quentin MEJÍA, Natalya Unavailable Unavailable Owen DINEROW, Rylee Unavailable Unavailable Tk LACKEY, Crystal Unavailable Unavail able Vidal BRODERICK, Jaziel Unavailable Sesar MEJÍA, Mari Unavailable Unavailable BROOKOVER PAPER BALER-CASTING ASSISTANT, KURT Attending Unava ilable MAST PAPER BALER-CASTING ASSISTANT, VERO Primary Care Unavailabl e MAST PAPER BALER-CASTING ASSISTANT, VERO Primary Care Unavailabl e OZ BRODERICK, AMADOU Givens Attending Unavailable MAST PAPER BALER-CASTING ASSISTANT, VERO Primary Care Unavailabl e BROOKOVER PAPER BALER-CASTING ASSISTANT, CORTNY Attending Unava ilable Jame RN, Gia Unavailable Unavailable Jame RN, Gia Unavailable Unavailable Mast CASTING ASSISTANT, Vero Unavailable Tannhof PAPER BALER.CASTING ASSISTANT, Coco Unavailable Enrique PAPER BALER.CASTING ASSISTANT, Feliciano Unavailable MAST SOFTWARE SALES EXECUTIVE, VERO Primary Care Provider Dr. Ralph Singh MD Attending Provider Dr. Ralph Singh MD Referring Provider MAST SOFTWARE SALES EXECUTIVE, VERO Referring Provider [phone] Amanda Drake NP-CJaziel Attending Provider Dr. Brayan Cast DO Attending Provider Dr. Brayan Cast DO Referring Provider Dr. Brayan Cast DO Other Provider Arnav LICENSED EMBALMER SUPERVISOR-C, Elsa Butler Attending Provider Agustina BRODERICK, Dr. Ritchie Attending Provider Agustina BRODERICK, Dr. Ritchie Referring Provider Arnav LICENSED EMBALMER SUPERVISOR-CElsa Referring Provider Dr. Steven Mercado DO Emergency Provider MAST SOFTWARE SALES EXECUTIVE, VERO Primary Care Provider [phone] Francisco BRODERICK, Dr. Rosas Attending Provider Francisco BRODERICK, Dr. Rosas Referring Provider MAST SOFTWARE SALES EXECUTIVE, VERO Referring Provider Vidal LICENSED EMBALMER SUPERVISOR-CJaziel Attending Provider [phone] MAST SOFTWARE SALES EXECUTIVE, VERO Primary Care Provider [phone] Francisco BRODERICK, Dr. Rosas Attending Provider Francisco BRODERICK, Dr. Rosas Referring Provider Dr. Steven Mercado DO Attending Provider Arnav LICENSED EMBALMER SUPERVISOR-C, Elsa Butler Other Provider Dr. Alberto Qiu DO Attending Provider [phone] Dr. Velasquez Hill DO Emergency Provider MAST PAPER BALER-CASTING ASSISTANT, VERO Attending Unavailabl e MAST PAPER BALER-CASTING ASSISTANT, VERO Primary Care Unavailabl e MAST PAPER BALER-CASTING ASSISTANT, VERO Attending Unavailabl e MAST PAPER BALER-CASTING ASSISTANT, VERO Primary Care Unavailabl e MAST PAPER BALER-CASTING ASSISTANT, VERO Attending Unavailabl e MAST PAPER BALER-CASTING ASSISTANT, VERO Primary Care Unavailabl e MAST PAPER BALER-CASTING ASSISTANT, VERO Primary Care Unavailabl e MAST PAPER BALER-CASTING ASSISTANT, VERO Attending Unavailabl e BROOKOVER PAPER BALER-CASTING ASSISTANT, KURT Attending Unava ilable MAST PAPER BALER-CASTING ASSISTANT, VERO Primary Care Unavailabl e BROOKOVER PAPER BALER-CASTING ASSISTANT, KURT Attending Unava ilable MAST PAPER BALER-CASTING ASSISTANT, VERO Primary Care Unavailabl e MAST PAPER BALER-CASTING ASSISTANT, VERO Attending Unavailabl e MAST PAPER BALER-CASTING ASSISTANT, VERO Primary Care Unavailabl e MAST PAPER BALER-CASTING ASSISTANT, VERO Attending Unavailabl e MAST PAPER BALER-CASTING ASSISTANT, VERO Primary Care Unavailabl e MAST PAPER BALER-CASTING ASSISTANT, VERO Attending Unavailabl e MAST PAPER BALER-CASTING ASSISTANT, VERO Primary Care Unavailabl e MAST PAPER BALER-CASTING ASSISTANT, VERO Primary Care Unavailabl e ALDA ABBASI MD Attending Unavail able MAST PAPER BALER-CASTING ASSISTANT, VERO Attending Unavailabl e MAST PAPER BALER-CASTING ASSISTANT, VERO Primary Care Unavailabl e Tannhof PAPER BALER.CASTING ASSISTANT, Coco Unavailable Mast LICENSED EMBALMER SUPERVISOR, Vero Primary Care Provider Unavailabl e Gilson PETERSEN [facility], Mansour S Unavailable [phone] Jaziel Drake MD Unavailable Unavailable MAST SOFTWARE SALES EXECUTIVE, VERO Primary Care Provider MAST SOFTWARE SALES EXECUTIVE, VERO Referring Provider Dr. Velasquez Hill DO [...] Care Unavailable MAST, VERO Primary Care Unavailable KAROLINA PIEDRA A Attending Unavailable KAROLINA PIEDRA A Referring Unavailable BLAS ROD Attending Unavailable ISCKARUS, MANSOUR S Referring Unavailable MAST, VERO Primary Care Unavailable MAST, VERO Referring Unavailable AGUSTINA, SCOTT Attending Unavailable MAST, VERO Primary Care Unavailable BLAS ROD Attending Unavailable MAST, VERO Primary Care Unavailable SELF, SELF Referring Unavailable MAST, VERO Primary Care Unavailable TADEO [...] Referring Unavailable MAST, VERO Primary Care Unavailable BURLENBLAS Referring Unavailable BURLEN, BLAS Attending Unavailable MAST, VERO Referring Unavailable MAST, VERO Primary Care Unavailable AGUSTINA, SCOTT Attending Unavailable Elsa José Referring Unavailable MAST, VERO Primary Care Unavailable Alberto Qiu Attending Unavailable Francisco, Ralph Attending Unavailable MAST, VERO Primary Care Unavailable Francisco, Ralph Referring Unavailable MAST, VERO Referring Unavailable Jaziel Drake Attending Unavailable MAST, VERO Primary Care Unavailable Joseluis Riggins Attending Unavailable AiramkarJoseluis joseph Referring Unavailable MAST, VERO Primary Care Unavailable [...] Brayan Attending Unavailable Hamida Saini Attending Unavailable Saini Hamida Consulting Unavailable MAST, VERO Primary Care Unavailable Hamida Saini Admitting Unavailable MAST, VERO Primary Care Unavailable Jaziel Drake Attending Unavailable MAST, VERO Referring Unavailable Sergo Bustillos Admitting Unavailable Sergo Bustillos Attending Unavailable Sergo Bustillos Consulting Unavailable MAST, VERO Primary Care Unavailable [...] Care Unavailable MAST, VERO Referring Unavailable Ralph iSngh Attending Unavailable MAST, VERO Referring Unavailable Elsa José Attending Unavailable MAST, VERO Primary Care Unavailable MAST, VERO Referring Unavailable Jaziel Drake Attending Unavailable MAST, VERO Primary Care Unavailable Law Trinh Attending Unavailable Sergo Bustillos Consulting Unavailable Sergo Bustillos Admitting Unavailable MAST, VERO Primary Care Unavailable MAST, VERO Primary Care Unavailable Ralph Singh Attending Unavailable Ralph Sinhg Referring Unavailable Law Trinh Attending Unavailable Law [...] Brayan Referring Unavailable Friend, Brayan Attending Unavailable DIANA, VERO Primary Care Unavailable Ralph Singh Attending Unavailable Ralph Singh Referring Unavailable MAST VERO HASTINGS Primary Care Provider [phone] MAST VERO HASTINGS Referring Provider [phone] Elsa Blake Attending Provider Dr. Alberto Qiu DO Attending Provider Dr. Jacobo Solorzano DO Emergency Provider Dr. Amadou Arthur DO Admit Provider Unavail able Arthur DO, Dr. Barney Attending Provider Unav ailable Allergies Allergy Classification Reported Allergen(s) Allergy Type Date of Onset Reaction(s) Facility (20 sources) Codeine; Translations: [codeine] Drug Allergy 08-01-19 13 Swelling, Swelling (morphologic abnormality) [facility] Work Phone: (20 sources) Nitrofurantoin Drug Allergy 06-14-20 21 Swelling [facility] Work Phone: (8 sources) Penicillins Drug Allergy 04-27-20 10 Rash [facility] (20 sources) Sulfamethoxazole / Trimethoprim; Translations: [sulfamethoxazole-t rimethoprim] Drug Allergy 09-08-19 16 Rash, Blister (morphologic abnormality), Blisters [facility] (17 sources) Penicillins Drug Allergy 04-27-20 10 Rash [facility] (20 sources) Sulfamethoxazole Drug Allergy 02-10-20 22 Unknown [facility] (20 sources) Sulfonamides (Antibiotic); Translations: [Sulfa (Sulfonamide Antibiotics)] Allergy to substance 02-10-20 22 Rash, Unknown [facility] (20 sources) Trimethoprim Drug Allergy 02-10-20 22 Unknown [facility] (19 sources) Penicillins Allergy to substance 06-08-20 22 Rash [facility] (20 sources) Penicillin; Translations: [penicillin] Drug Allergy Eruption of skin (disorder) [facility] (17 sources) Sulfonamide; Translations: [sulfa drugs] Drug allergy [facility] (19 sources) Penicillins Propensity to adverse reactions to drug 05-07-20 24 Rash [facility] (1 source) Codeine Drug Allergy 12-31-19 [facility] (1 source) Nitrofurantoin Drug Allergy 12-31-19 [facility] (1 source) Penicillins Drug allergy (disorder) 12-31-19 [facility] (1 source) Sulfamethoxazole Drug Allergy 12-31-19 [facility] (1 source) Trimethoprim Drug Allergy 12-31-19 [facility] Medications Current Medications Medication [...] / oxyCODONE hydrochloride 5 mg oral tablet (9 sources) Opioid Agonist Start: 10-01-19 take 1 tablet by mouth every six hours as needed for pain Oxycodone-Acetamin ophen (Percocet) 5-325 mg tablet Active 1 {tbl} PO EVERY 6 HOURS as needed for pain 12 3 September 30, 2024 Arnuity Ellipta 200 mcg/inh inhalation powder (2 sources) Start: 10-08-19 take 1 dose by inhalation every twenty-four hours Arnuity Ellipta 200 mcg/inh inhalation powder Dose : 200 mcg = 1 inh, Inhalation, q24h, # 30 EA, 0 Refill(s), Pharmacy: [facility]/pharmacy #[id number], 159, cm, 10/02/24 9:38:00 EDT, Height, kg, 10/02/24 9:38:00 EDT, Dosing Weight Start Date: 10/07/24 Status: Ordered Quantity: 30.0 Unit: EA Repeat number: 1 benoxinate hydrochloride 4 mg/ml / fluorescein sodium 2.5 mg/ml ophthalmic solution (2 sources) Diagnostic Dye Start: 11-30-19 End: 12-01-19 fluorescein-benoxi aracely 0.25-0.4 % 1 Drop (FLURESS) Start: 02-27-2022 End: 02-28-2022 fluorescein-benoxinate 0.25- 0.4 % 1 Drop (FLURESS) benzonatate 200 mg oral capsule (20 sources) Non-narcotic Antitussive Start: 12-30-2024 take 1 [...] - Uncontrolled E11.65 Blood-Glucose Meter,Continuous (Dexcom G7 Staking Engineer) misc (8 sources) Start: 02-18-2023 Blood-Glucose Meter,Continuous (Dexcom G7 Staking Engineer) misc Active 0 .Route 1 February 18, 2023 12:00am As directed Blood-Glucose Sensor (Dexcom G7 Sensor) device (10 sources) Start: 02-18-2023 Blood-Glucose Sensor (Dexcom G7 Sensor) device Active 0 .Route 3 February 18, 2023 12:00am 1 sensor q 10 days Blood-Glucose,Staking Engineer, Cont (Dexcom G7 Staking Engineer) misc (2 sources) Start: 02-18-2023 Blood-Glucose,Staking Engineer ,Cont (Dexcom G7 Staking Engineer) misc Active 0 .Route 1 February 18, [...] on above: Take 1 capsule by mo [facility] four times daily for 7 days. cetirizine hydrochloride 10 mg oral tablet (3 sources) Histamine-1 Receptor Antagonist Start: 06-26-20 End: 07-10-20 take 1 tablet by mouth once daily cetirizine (ZYRTEC) 10 mg tablet Take 1 tablet by mouth once daily for 14 days. 14 tablet 0 06/26/2022 07/10/2022 Active Comment on above: Take 1 tablet by [facility] once daily for 14 days. cholecalciferol 1.25 mg oral capsule (20 sources) Vitamin D Start: 10-01-19 take 1 capsule by mouth every week Cholecalciferol (Vitamin D3) 1,250 mcg (50,000 unit) capsule Active 1250 ug PO EVERY WEEK September 30, 2024 12:00am Start: 07-03-2021 take 1 capsule by [facility] every week cholecalciferol, Vitamin D3, (VITAMIN D3) 1,250 mcg (50,000 unit) cap capsule Indications: Vitamin D deficiency Take 1 capsule by mouth one time a week. 12 capsule 3 07/03/2021 Active Comment on above: Take 1 capsule by [facility] one time a week. ciclopirox 80 mg/ml [...] 0 Active Comment on above: as directed. DEXCOM G7 LODGE SALES ASSOCIATE misc (12 sources) Start: 02-18-2023 DEXCOM G7 [...] QHS, # 1 EA, 0 Refill(s), Pharmacy: [facility] #[id number], Carpal tunnel syndrome of right wrist [...] QHS, # 1 EA, 0 Refill(s), Pharmacy: [facility] #[id number], Carpal tunnel syndrome of right wrist [...] injector Discontinued 1.5 mg SC EVERY WEEK September 23, 2023 10:06am March 12, 2024 8:44am Start: 06-10-2023 End: 09-23-2023 Dulaglutide (Trulicity) 0.75 mg/0.5 mL pen injector Discontinued 0.75 mg SC EVERY WEEK July 25, 2023 11:49am September 23, 2023 10:03am Start: 03-14-2022 End: 06-21-2022 inject 0.75 mg by subcutaneous injection every week dulaglutide (TRULICITY) 0.75 mg/0.5 mL pen injector Inject 0.75 mg subcutaneously one time a week. 4 Each 03/14/2022 06/21/2022 Discontinued Comment on above: Inject 0.75 mg subcu taneously one time a week. fenofibrate 48 mg oral tablet (9 sources) Peroxisome Proliferator Receptor alpha Agonist Start: 024 take 1 tablet by mouth at bedtime Fenofibrate Nanocrystallized 48 mg tablet Active 48 mg PO AT BEDTIME May 09, 2024 12:00am ferrous sulfate 325 mg oral tablet (20 sources) Start: 025 take 1 tablet by mouth every other day Ferrous Sulfate 325 mg (65 mg iron) tablet Active 325 mg PO EVERY OTHER DAY September 30, 2024 12:00am Start: 06-21-2023 End: 08-28-2024 take 1 tablet [...] take 1 capsule by mouth once daily Fluoxetine 40 mg capsule Active 40 mg PO DAILY March 11, 2024 12:00am Comment on above: Take 1 capsule by mo [facility] once daily. Fluticasone Propion-Salmeterol (3 sources) Corticosteroid, beta2-Adrenergic Agonist Start: 2024 Fluticasone Propion-Salmeterol (Advair Diskus) 500-50 mcg/dose blister with device Active 1 NMA INHALATION Q12H 60 October 30, 2024 12:00am gabapentin 300 mg oral capsule (11 sources) Anti-epileptic Agent Start: 2024 take 1 capsule by mouth three times daily Gabapentin 300 mg capsule Active 300 mg PO THREE TIMES A DAY 90 September 30, 2024 12:00am hydroCHLOROthiazide 25 mg [...] by mouth once daily. 30 tablet 11 04/05/2021 03/19/2022 Discontinued Comment on above: Take 1 tablet by jimi th once daily. 3 ml insulin aspart, human 100 unt/ml pen injector (20 sources) Insulin Analog Start: 05-09-2023 NovoLOG FlexPen 100 UNIT/ML Solution Pen-injector injection Inject 90 Units under the skin. 05/09/2023 Active Start: 04-18-2023 End: 06-03-2023 Insulin Aspart U-100 (Novolo g Flexpen U-100 Insulin) 100 unit/mL (3 mL) insulin pen Discontinued 60 - 65 U SC 3 TIMES DAILY WITH MEALS April 18, 2023 12:00am June 03, 2023 4:35pm Start: 04-18-2023 Insulin Aspart U-100 (Novolog Flexpen [...] 38-40 units with that meal. 30 mL 11 01/19/2023 07/02/2023 Discontinued (Changing Therapy/Dosage Form) Start: [...] long-term current use of insulin (HCC) Inject 48 Units subcutaneously twice daily before [...] long-term current use of insulin (HCC) Inject 110 Units subcutaneously every morning. 60 [...] 100 U SC THREE TIMES A DAY March 12, 2024 8:43am Increase by 10u/meal [...] qDay, # 30 tab(s), 11 Refill(s), Pharmacy: [facility]/pharmacy #[id number], 154, cm, 03/02/24 7:12:00 EDT, [...] 02-25-2025 take 1 tablet by mouth once daily Levothyroxine 200 mcg tablet Active 200 ug PO DAILY September 23, 2023 10:08am Start: 06-21-2022 End: 07-21-2022 take 1 tablet [...] 1 tablet by jimi once daily. Take with food. naproxen 500 mg oral tablet (20 sources) Nonsteroidal Anti-inflammatory Drug Start: 4 End: 4 naproxen 500 mg oral tablet Dose : 500 mg = 1 tab(s), Oral, BID, X 15 day(s), # 30 tab(s), 0 Refill(s), 04/01/24 8:10:00 AM EDT, Pharmacy: [facility]/pharmacy #[id number], Carpal tunnel syndrome of right [...] 0 Refill(s), 12/09/24 2:14:00 PM EDT, Pharmacy: [facility]/pharmacy #[id number], 150, cm, 12/02/24 13:05:00 EDT, [...] 0 Refill(s), 03/27/24 10:27:00 AM EDT, Pharmacy: [facility] #[id number], Enterococcus UTI, 155, cm, 03/17/24 7:21:00 EDT, Height, 109.3, kg, 03/17/24 7:21:00 EDT, Dosing Weight Start Date: 03/20/24 Stop Date: 03/27/24 Status: Ordered Start: 02-28-2024 End: 03-06-2024 Macrobid 100 mg oral capsule Dose : 100 mg = 1 cap(s), Oral, BID, Take with food, X 7 day(s), # 14 cap(s), 0 Refill(s), 03/06/24 11:04:00 AM EDT, Pharmacy: [facility]/pharmacy #[id number], 152, cm, 02/24/24 9:43:00 EDT, Height, 108.5, kg, 02/25/24 9:12:00 EDT, Dosing Weight Start Date: 02/28/24 Stop Date: 03/06/24 Status: Ordered Start: 01-14-2024 End: 01-19-2024 Macrobid 100 mg oral capsule Dose : 100 mg = 1 cap(s), Oral, BID, Take with food, X 5 day(s), # 10 cap(s), 0 Refill(s), 01/19/24 9:25:00 AM EDT, [id number] 153, cm, 01/14/24 7:37:00 EDT, Height, 112.3, kg, 01/14/24 7:37:00 EDT, Dosing Weight Start Date: 01/14/24 Stop Date: 01/19/24 Status: Ordered Oxygen (11 sources) oxygen gas Inhal e 2 L As directed. Please provide: small portable tanks This order certifies that this patient is under my care and that I, or a Nurse Practitioner or Physician's Surgical Garment Inspector had a [id number] Encounter with them. Based upon those findings, the equipment/supplies listed above are medically necessary. Active pantoprazole 40 mg delayed release oral tablet (20 sources) Proton Pump Inhibitor Start: 04-07-20 End: 09-22-19 take 1 tablet by mouth twice daily Pantoprazole 40 mg Tablet,Delayed Release (Dr/Ec) Active 40 mg PO TWICE A DAY April 07, 2024 12:00am Start: 01-19-2023 End: 06-23-2024 take 1 tablet [...] 1/2 hr before meal. polyethylene glycol 3350 [id number] mg / potassium chloride 2970 mg / sodium bicarbonate 6740 mg / sodium chloride 5860 mg / sodium sulfate 46707 mg powder for oral solution (5 sources) [...] a week. sucralfate 1000 mg oral tablet (16 sources) Aluminum Complex Start: 04-13-2024 sucralfate 1 [...] amoxicillin 250 mg oral liqu id (AMOXIL) atorvastatin 20 mg oral tablet (20 sources) HMG-CoA Reductase Inhibitor Start: 10-06-2019 End: 01-08-2025 take 1 tablet by mouth at bedtime Atorvastatin 20 MG tablet Discontinued 20 mg PO AT BEDTIME October 06, 2019 12:00am May 09, 2024 7:21pm Start: 08-18-2015 End: 04-11-2018 take 2 tablets [...] 1 tablet by jimi th once daily. azithromycin 250 mg oral tablet (12 sources) Macrolide Antimicrobial Start: 01-27-2024 End: 03-04-2024 [...] oral capsule (20 sources) Cephalosporin Antibacterial Start: End: take 1 capsule by mouth twice [...] by mouth. ciprofloxacin 500 mg oral tablet (10 sources) Quinolone Antimicrobial Start: 11-04-19 End: 12-31-19 [...] 7 DAYS. clindamycin 300 mg oral capsule (19 sources) Lincosamide Antibacterial Start: 022 End: take [...] 28, 2018 12:00am April 11, 2018 2:09pm dexamethasone 6 mg oral tablet (20 sources) Corticosteroid Start: 025 End: 025 take 1 tablet by mouth once daily Dexamethasone 6 mg tablet Discontinued 6 mg PO DAILY December 30, 2024 12:00am January 10, 2025 10:46pm Start: 03-07-2024 End: 04-04-2024 take 1 tablet by mouth once daily Dexamethasone 6 mg tablet Discontinued 6 mg PO DAILY 12 25March 07, 2024 12:00am April 04, 2024 8:09am Start: 01-22-2024 End: 03-04-2024 take 1 tablet by mouth once daily Dexamethasone 6 mg tablet Discontinued 6 mg PO DAILY January 22, 2024 12:00am March 04, 2024 10:33am dicyclomine hydrochloride 10 mg oral capsule (20 sources) Anticholinergic Start: 03-11-2024 End: 04-04-2024 take 1 capsule by mouth four times daily Dicyclomine 10 mg capsule Discontinued 10 mg PO .QID March 11, 2024 12:00am April 04, 2024 8:14am Start: 02-24-2024 End: 02-29-2024 dicyclomine 10 mg oral capsu le Dose : 10 mg = 1 cap(s), Oral, QID, # 20 cap(s), 0 Refill(s), Pharmacy: [facility]/pharmacy #[id number], 152, cm, 02/24/24 9:43:00 EDT, [...] 3:10pm doxycycline hyclate 100 mg oral capsule (13 sources) Tetracyclin e-class Drug Start: 09-23-2023 End: [...] by jimi twice daily for 7 days. Take 1 tablet by jimi twice daily for 10 days. ergocalciferol 1.25 mg oral capsule (20 sources) Provitamin D2 Compound Start: 018 End: 018 Ergocalciferol (Vitamin D2) 50,000 UNIT capsule Discontinued [id number] U PO Q7D September 12, 2017 1:00am April 11, 2018 2:09pm famotidine 20 mg oral tablet (20 sources) Histamine-2 Receptor Antagonist Start: 021 End: 023 take 1 tablet by mouth twice daily famotidine (PEPCID) 20 mg tablet Indications: Generalized abdominal pain Take 1 tablet by mouth twice daily. 60 tablet 1 04/05/2021 01/19/2023 Discontinued Comment on above: Take 1 tablet by [facility] twice daily. Fluticasone Furoate (20 sources) Corticosteroid Start: 025 End: 025 take 200 ug by inhalation every twenty-four [...] in each nostril once daily. 1 Each 08/30/2022 Active Start: 06-26-2022 End: 08-30-2022 take [...] / vilanterol 0.025 mg/actuat dry powder inhaler (3 sources) Corticosteroid, beta2-Adrenergic Agonist Start: 10-30-2024 End: [...] Comment on above: Take 1 [facility] by [facility]. Gallium Ga 68 Dotatate (Netspot) 0.5-5.94 millicurie (1 source) Start: 07-30-2024 End: 07-30-2024 0.5-5.94 millicurie, Intravenous, ONCE, 1 dose, On Cristela 07/30/24 at 0815 500 ml hetastarch 60 mg/ml injection (2 sources) Plasma Volume Title Search Manager Start: 09-03-2024 End: 09-03-2024 NEEDED, Starting on Cristela 09/03/24 at 1323, Until Cristela 09/03/24 at 1323, Intra-op/Intra-Proc Start: 06-23-2024 End: 06-23-2024 CONTINUOUS NEEDED, Starti ng on 06/23/24 at 1422, Until 06/23/24 at 1422, Intra-op/Intra-Proc Insulin Degludec (Tresiba Flextouch U-200) 200 unit/mL (3 mL) insulin pen (10 sources) Start: 04-18-2023 End: 06-03-2023 Insulin Degludec [...] 1-171 mL (1 source) Start: 5 End: 1-171 mL, Intravenous, ONCE, 1 dose, On Cristela 12/24/24 at 1300, Extravasation Risk, CT Procedure Iohexol (OMNIPAQUE) 9 MG/ML Bottle 1,000 mL (1 source) Start: 5 End: 5 take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 10*3/uL Normal 0.22-0.87 [facility] Comment on above: Performed By: #### P CA #### [facility] (DEFAULT) [address] [address] Monocytes/100 WBC (Bld) 5.1 % Normal [facility] Comment on above: Performed By: #### P CA #### [facility] (DEFAULT) [address] [address] Nucleated RBC 0.0 /100 WBC Normal <=0.2 [facility] Comment on above: Performed By: #### P CA #### [facility] (DEFAULT) [address] [address] Platelet mean volume (Bld) [Entitic vol] 9.8 fL Normal 8.5-12.2 [facility] Comment on above: Performed By: #### P CA #### [facility] (DEFAULT) [address] [address] Platelets (Bld) [#/Vol] 251 10*3/uL Normal 150-393 [facility] Comment on above: Performed By: #### P CA #### [facility] (DEFAULT) [address] [address] RBC (Bld) [#/Vol] 4.77 10*6/uL Normal 3.91-5.04 [facility] Comment on above: Performed By: #### P CA #### [facility] (DEFAULT) [address] [place] [address]684 RBC Distribution 15.4 % High 10.8-14.9 [facility] Comment on above: Performed By: #### P CA #### [facility] (DEFAULT) [address] [place] [address] Segs + Bands Auto 59.1 % Normal [facility] Comment on above: Performed By: #### P CA #### [facility] (DEFAULT) [address] [address] Segs + Bands,Absolute Auto 5.22 K/uL Normal 1.64-7.28 [facility] Comment on above: Performed By: #### P CA #### [facility] (DEFAULT) [address] [place] [address] WBC (Bld) [#/Vol] 8.83 10*3/uL Normal 3.99-11.19 [facility] Comment on above: Performed By: #### P CA #### [facility] (DEFAULT) [address] [place] [address] Basophils (Bld) [#/Vol] 0.07 10*3/uL Normal 0.00-0.15 [facility] Comment on above: Performed By: #### L AB980 #### [facility] (DEFAULT) [address] [place] [address] Basophils/100 WBC (Bld) 0.9 % Normal [facility] Comment on above: Performed By: #### L AB980 #### [facility] (DEFAULT) [address] [address] DIFF STATUS Electronic Differential Normal [facility] Comment on above: Performed By: #### L AB980 #### [facility] (DEFAULT) [address] [place] [address] Eosinophils (Bld) [#/Vol] 0.23 10*3/uL Normal 0.00-0.42 [facility] Comment on above: Performed By: #### L AB980 #### [facility] (DEFAULT) [address] [address] Eosinophils/100 WBC (Bld) 2.9 % Normal [facility] Comment on above: Performed By: #### L AB980 #### [facility] (DEFAULT) [address] [address] Hematocrit (Bld) [Volume fraction] 39.2 % Normal 34.9-44.3 [facility] Comment on above: Performed By: #### L AB980 #### [facility] (DEFAULT) [address] [address] Hemoglobin (Bld) [Mass/Vol] 12.2 g/dL Normal 11.4-15.2 [facility] Comment on above: Performed By: #### L AB980 #### [facility] (DEFAULT) [address] [address] Immature Grans % 1.1 % Normal [facility] Comment on above: Performed By: #### L AB980 #### [facility] (DEFAULT) [address] [address] Immature Grans Absolute 0.09 K/uL High <=0.08 [facility] Comment on above: Performed By: #### L AB980 #### [facility] (DEFAULT) [address] [address] Lymphocytes (Bld) [#/Vol] 2.62 10*3/uL Normal 1.16-3.51 [facility] Comment on above: Performed By: #### L AB980 #### [facility] (DEFAULT) [address] [address] Lymphocytes/100 WBC (Bld) 32.5 % Normal [facility] Comment on above: Performed By: #### L AB980 #### [facility] (DEFAULT) [address] [address] MCV (RBC) [Entitic vol] 79.5 fL Low 79.6-97.7 [facility] Comment on above: Performed By: #### L AB980 #### [facility] (DEFAULT) [address] [address] Mean Cell Hgb 24.7 pg Low 25.9-33.9 [facility] Comment on above: Performed By: #### L AB980 #### [facility] (DEFAULT) [address] [address] Mean Cell Hgb Conc 31.1 g/dL Low 31.4-35.9 [facility] Comment on above: Performed By: #### L AB980 #### [facility] (DEFAULT) [address] [address] Monocytes (Bld) [#/Vol] 0.41 10*3/uL Normal 0.22-0.87 [facility] Comment on above: Performed By: #### L AB980 #### [facility] (DEFAULT) [address] [address] Monocytes/100 WBC (Bld) 5.1 % Normal [facility] Comment on above: Performed By: #### L AB980 #### [facility] (DEFAULT) [address] [address] Nucleated RBC 0.0 /100 WBC Normal <=0.2 [facility] Comment on above: Performed By: #### L AB980 #### [facility] (DEFAULT) [address] [address] Platelet mean volume (Bld) [Entitic vol] 10.6 fL Normal 8.5-12.2 [facility] Comment on above: Performed By: #### L AB980 #### [facility] (DEFAULT) [address] [address] Platelets (Bld) [#/Vol] 266 10*3/uL Normal 150-393 [facility] Comment on above: Performed By: #### L AB980 #### [facility] (DEFAULT) [address] [place] [address] RBC (Bld) [#/Vol] 4.93 10*6/uL Normal 3.91-5.04 [facility] Comment on above: Performed By: #### L AB980 #### [facility] (DEFAULT) [address] [place] [address] RBC Distribution 15.6 % High 10.8-14.9 [facility] Comment on above: Performed By: #### L AB980 #### [facility] (DEFAULT) [address] [place] [address] Segs + Bands Auto 57.5 % Normal [facility] Comment on above: Performed By: #### L AB980 #### [facility] (DEFAULT) [address] [place] [address] Segs + Bands,Absolute Auto 4.63 K/uL Normal 1.64-7.28 [facility] Comment on above: Performed By: #### L AB980 #### [facility] (DEFAULT) [address] [place] [address] WBC (Bld) [#/Vol] 8.05 10*3/uL Normal 3.99-11.19 [facility] Comment on above: Performed By: #### L AB980 #### [facility] (DEFAULT) [address] [place] [address] CHROMOGRANIN Aon 12-24-2024 Chromogranin A 756 ng/mL High <93 [facility] Comment on above: Result Comment: Impa ired renal or hepatic function or treatment with proton pump inhibitors may result in artifactual elevations of Chromogranin A. ADDITIONAL INFORMATION The testing method is a homogeneous time-resolved immunofluorescent assay manufactured by [employer] and performed on the [employer] Compact Plus. Values obtained with different assay [...] examination and other findings. Test Performed by: [facility] [place] [address] [employer] Setup Operator: Juana Recio Ph.D.; CLIA# [id number] Performed By: #### C NAHED, JOANO #### [facility] (DEFAULT) [address] [place] [address] Chromogranin A 678 ng/mL High <93 [facility] Comment on above: Result Comment: Impa ired renal or hepatic function or treatment with proton pump inhibitors may result in artifactual elevations of Chromogranin A. ADDITIONAL INFORMATION The testing method is a homogeneous time-resolved immunofluorescent assay manufactured by [employer] and performed on the [employer] Kryptor Compact Plus. Values obtained with different [...] examination and other findings. Test Performed by: [place] [address] [employer] Operator: Juana Recio Ph.D.; CLIA# [id number] Performed By: #### C MPN, LDO #### [facility] (DEFAULT) [address] [place] [address] COMPREHENSIVE METABOLIC PANE [place] 12-24-2024 Albumin [Mass/Vol] 3.8 g/dL 3.5 - 5.0 g/dL [facility] ALP [Catalytic activity/Vol] 143 U/L High 32 - 126 U/L [facility] ALT [Catalytic activity/Vol] 49 U/L High 9 - 48 U/L [facility] Anion gap [Moles/Vol] 10 mmol/L 7 - 17 mmol/L [facility] AST [Catalytic activity/Vol] 57 U/L High 10 - 39 U/L [facility] Bilirubin [Mass/Vol] 0.5 mg/dL NINF - 1.5 mg/dL [facility] Calcium [Mass/Vol] 9.6 mg/dL 8.6 - 10. 5 mg/dL [facility] Chloride [Moles/Vol] 95 mmol/L Low 98 - 10 8 mmol/L [facility] CO2 [Moles/Vol] 31 mmol/L 21 - 31 mmol/L [facility] Creatinine [Mass/Vol] 0.69 mg/dL 0.50 - 1.20 mg/dL [facility] eGFR, CKD-EPI, Female - PINF [facility] Comment on above: Reported eGFR is bas ed on the CKD-EPI 2020 equation using creatinine, age, and sex. Glucose [Mass/Vol] 312 mg/dL High 70 - 179 mg/dL [facility] Interpretation and review of laboratory results Abnormal [facility] Osmolality Calc [Osmolality] 291 [facility] Potassium [Moles/Vol] 4.7 mmol/L 3.5 - 5.0 mmol/L [facility] Protein [Mass/Vol] 9.1 g/dL High 6.4 - 8.3 g/dL [facility] Sodium [Moles/Vol] 131 mmol/L Low 135 - 145 mmol/L [facility] Urea nitrogen [Mass/Vol] 14 mg/dL 7 - 25 mg/dL [facility] Urea nitrogen/Creatinine [Mass ratio] 20 mg/mg [facility] Albumin [Mass/Vol] 3.8 g/dL Normal 3.5-5.0 [facility] Comment on above: Performed By: #### C MPN, LDO #### [facility] (DEFAULT) [address] [place] [address] ALP [Catalytic activity/Vol] 143 U/L High 32-126 [facility] Comment on above: Performed By: #### C MPN, LDO #### [facility] (DEFAULT) [address] [place] [address] ALT [Catalytic activity/Vol] 49 U/L High 9-48 [facility] Comment on above: Performed By: #### C MPN, LDO #### [facility] (DEFAULT) [address] [place] [address] Anion gap [Moles/Vol] 10 mmol/L Normal 7-17 [facility] Comment on above: Performed By: #### C MPN, LDO #### [facility] (DEFAULT) [address] [place] [address]291 AST [Catalytic activity/Vol] 57 U/L High 10-39 [facility] Comment on above: Performed By: #### C MPN, LDO #### [facility] (DEFAULT) [address] [place] [address] Bilirubin [Mass/Vol] 0.5 mg/dL Normal <1.5 [facility] Comment on above: Performed By: #### C MPN, LDO #### [facility] (DEFAULT) [address] [place] [address] Calcium [Mass/Vol] 9.6 mg/dL Normal 8.6-10.5 [facility] Comment on above: Performed By: #### C MPN, LDO #### [facility] (DEFAULT) [address] [place] [address] Chloride [Moles/Vol] 95 mmol/L Low 98-108 [facility] Comment on above: Performed By: #### C MPN, LDO #### [facility] (DEFAULT) [address] [place] [address]45 CO2 [Moles/Vol] 31 mmol/L Normal 21-31 [facility] Comment on above: Performed By: #### C MPN, LDO #### [facility] (DEFAULT) [address] [place] [address]12 Creatinine [Mass/Vol] 0.69 mg/dL Normal 0.50-1.20 [facility] Comment on above: Performed By: #### C MPN, LDO #### [facility] (DEFAULT) [address] [place] [address] eGFR, CKD-EPI, Female > Normal >=60 [facility] Comment on above: Result Comment: Repo rted eGFR is based on the CKD-EPI 2020 equation using creatinine, age, and sex. Performed By: #### C MPN, LDO #### [facility] (DEFAULT) [address] [place] [address] Glucose [Mass/Vol] 312 mg/dL High Nonfastin -179 mg/dL; Fastin-99 [facility] Comment on above: Performed By: #### C MPN, LDO #### [facility] (DEFAULT) [address] [place] [address] Osmolality [Osmolality] 291 mosm/kg Normal 278-305 [facility] Comment on above: Performed By: #### C MPN, LDO #### [facility] (DEFAULT) [address] [place] [address]25 Potassium [Moles/Vol] 4.7 mmol/L Normal 3.5-5.0 [facility] Comment on above: Performed By: #### C MPN, LDO #### [facility] (DEFAULT) [address] [place] [address]73 Protein [Mass/Vol] 9.1 g/dL High 6.4-8.3 [facility] Comment on above: Performed By: #### C MPN, LDO #### [facility] (DEFAULT) [address] [place] [address]72 Sodium [Moles/Vol] 131 mmol/L Low 135-145 [facility] Comment on above: Performed By: #### C MPN, LDO #### [facility] (DEFAULT) [address] [place] [address]89 Urea nitrogen [Mass/Vol] 14 mg/dL Normal 7-25 [facility] Comment on above: Performed By: #### C MPN, LDO #### [facility] (DEFAULT) [address] [place] [address]791 Urea nitrogen/Creatinine [Mass ratio] 20 mg/mg Normal [facility] Comment on above: Performed By: #### C MPN, LDO #### [facility] (DEFAULT) [address] [place] [address]29 Albumin [Mass/Vol] 3.8 g/dL Normal 3.5-5.0 [facility] Comment on above: Performed By: #### C MPN, LDO #### [facility] (DEFAULT) [address] [place] [address]994 ALP [Catalytic activity/Vol] 153 U/L High 32-126 [facility] Comment on above: Performed By: #### C MPN, LDO #### [facility] (DEFAULT) [address] [place] [address]83 ALT [Catalytic activity/Vol] 48 U/L Normal 9-48 [facility] Comment on above: Performed By: #### C MPN, LDO #### [facility] (DEFAULT) [address] [place] [address]184 Anion gap [Moles/Vol] 9 mmol/L Normal 7-17 [facility] Comment on above: Performed By: #### C MPN, LDO #### [facility] (DEFAULT) [address] [place] [address]12 AST [Catalytic activity/Vol] 56 U/L High 10-39 [facility] Comment on above: Performed By: #### C MPN, LDO #### [facility] (DEFAULT) [address] [place] [address]45 Bilirubin [Mass/Vol] 0.5 mg/dL Normal <1.5 [facility] Comment on above: Performed By: #### C MPN, LDO #### [facility] (DEFAULT) [address] [place] [address]173 Calcium [Mass/Vol] 9.5 mg/dL Normal 8.6-10.5 [facility] Comment on above: Performed By: #### C MPN, LDO #### [facility] (DEFAULT) [address] [place] [address] 13944 Chloride [Moles/Vol] 93 mmol/L Low 98-108 [facility] Comment on above: Performed By: #### C MPN, LDO #### [facility] (DEFAULT) [address] [place] [address] 15053 CO2 [Moles/Vol] 34 mmol/L High 21-31 [facility] Comment on above: Performed By: #### C MPN, LDO #### [facility] (DEFAULT) [address] [place] [address]31 Creatinine [Mass/Vol] 0.69 mg/dL Normal 0.50-1.20 [facility] Comment on above: Performed By: #### C MPN, LDO #### [facility] (DEFAULT) [address] [place] [address]76 eGFR, CKD-EPI, Female > Normal >=60 [facility] Comment on above: Result Comment: Repo rted eGFR is based on the CKD-EPI 2020 equation using creatinine, age, and sex. Performed By: #### C MPN, LDO #### [facility] (DEFAULT) [address] [place] [address]493 Glucose [Mass/Vol] 288 mg/dL High Nonfastin -179 mg/dL; Fastin-99 [facility] Comment on above: Performed By: #### C MPN, LDO #### [facility] (DEFAULT) [address] [place] [address] Osmolality [Osmolality] 291 mosm/kg Normal 278-305 [facility] Comment on above: Performed By: #### C MPN, LDO #### [facility] (DEFAULT) [address] [place] [address]896 Potassium [Moles/Vol] 4.4 mmol/L Normal 3.5-5.0 [facility] Comment on above: Performed By: #### C MPN, LDO #### [facility] (DEFAULT) [address] [place] [address]77 Protein [Mass/Vol] 9.2 g/dL High 6.4-8.3 [facility] Comment on above: Performed By: #### C MPN, LDO #### [facility] (DEFAULT) [address] [place] [address]2856 Sodium [Moles/Vol] 132 mmol/L Low 135-145 [facility] Comment on above: Performed By: #### C MPN, LDO #### [facility] (DEFAULT) [address] [place] [address]0474 Urea nitrogen [Mass/Vol] 14 mg/dL Normal 7-25 [facility] Comment on above: Performed By: #### C MPN, LDO #### [facility] (DEFAULT) [address] [place] [address] 94168 Urea nitrogen/Creatinine [Mass ratio] 20 mg/mg Normal [facility] Comment on above: Performed By: #### C MPN, LDO #### [facility] (DEFAULT) [address] [place] [address] 10277 CREAT/GFRon 12-24-2024 Creatinine [Mass/Vol] 0.69 mg/dL 0.50 - 1.20 mg/dL [facility] GFR/1.73 sq M.predicted CKD-EPI (S/P/Bld) [Vol rate/Area] - PINF [facility] Comment on above: Reported eGFR is bas ed on the CKD-EPI 2020 equation using creatinine, age, and sex. Interpretation and review of laboratory results Normal [facility] Test performed at ad dress of the patient encounter. [facility] GASTRIN - NON-STIMULATEDon 0 12-24-2024 Gastrin 1296 pg/mL High [facility] Comment on above: Result Comment: REFERENCE VALUE <100 Reference ranges valid for >= 8 hour fast. Test Performed by: [facility] [address] [place] [address] [employer] Setup Operator: Juana Recio Ph.D.; CLIA# [id number] Performed By: #### C MPN, LDO #### [facility] (DEFAULT) [address] [address] LACTATE DEHYDROGENASEon Interpretation and review of laboratory results Normal [facility] LDH Lactate to pyruvate reaction [Catalytic activity/Vol] 162 U/L 100 - 190 U/L [facility] LD Total 162 U/L Normal 100-190 [facility] Comment on above: Performed By: #### C MPN, LDO #### [facility] (DEFAULT) [address] [address] LD Total 170 U/L Normal 100-190 [facility] Comment on above: Performed By: #### C MPN, LDO #### [facility] (DEFAULT) [address] [address] METHYLMALONIC ACIDon 12-24- 025 METHYLMALONIC ACID 0.34 nmol/mL Normal <=0.40 [facility] Comment on above: Result Comment: ADDITIONAL INFORMATION This test was developed and its performance characteristics determined by [facility] in a manner consistent with CLIA requirements. This test has not been cleared or approved by the [place]. Food and Drug Administration. Test Performed by: [facility] [address] [place] [address] [employer] Setup Operator: Juana Recio Ph.D.; CLIA# [id number] Performed By: #### Char DOCKERY, JOANO #### [facility] (DEFAULT) [address] [place] [address] No Panel Informationon 12-24 [facility] PANCREATIC POLYPEPTIDEon Pancreatic Polypeptide 739 pg/mL High <291 [facility] [facility] Comment on above: Result Comment: ADDITIONAL INFORMATION This test was developed and its performance characteristics determined by [facility] in a manner consistent with CLIA requirements. This test has not been cleared or approved by the U.S. Food and Drug Administration. Test Performed by: [facility] [address] [place] [address] [employer] Machine Setup Operator: Juana Recio Ph.D.; CLIA# [id number] Performed By: #### Char DOCKERY, JOANO #### [facility] (DEFAULT) [address] [place] [address] LABORATORYOrdered By: Anali Levy on 12-02-2024 Albumin DL <= 20 mg/L (U) [Mass/Vol] 229.1 mg/L Invalid Interpretation Code AO ADM SS Albumin/Creatinine DL <= 20 mg/L (U) [Mass ratio] 308 mg/G High 0 - 30 mg/G AO Chemistry S Creatinine (U) [Mass/Vol] 74.4 mg/dL Normal 29.0 - 226.0 mg/dL AO ADM SS MALBRon 12-02-2024 U Creatinine 74.4 mg/dL Normal 29.0-226.[address] [facility] Comment on above: Performed By: #### M ALBR #### [address] [address] U Microalb 229.1 mg/L Normal [facility] Comment on above: Performed By: #### M ALBR #### [address] [place], [place] [address] U Ratio Alb/Cre 308 mg/G High 0-[address] [facility] Comment on above: Performed By: #### M ALBR #### [address] [address] No Panel Informationon 12-02 Culture Urine 50,000 - 100,000 cfu /ml Mixed growth consistent with normal urogenital keiko. [facility] Work Phone: .Auto Diffon 11-06-2024 Basophil, Absolute 0.0 10 3/mcL Normal 0.0-0.3 [facility] Comment on above: Performed By: #### C MP, ADIFF, CBC, PBNP, GFR, ANEU #### [address] [address] Basophils/100 WBC (Bld) 0.5 % Normal 0.0-2.[address] [facility] Comment on above: Performed By: #### C MP, ADIFF, CBC, PBNP, GFR, ANEU #### [address] [address] Eosinophil, Absolute 0.2 10 3/mcL Normal 0.0-0.7 [facility] Comment on above: Performed By: #### C MP, ADIFF, CBC, PBNP, GFR, ANEU #### [address] [address] Eosinophils/100 WBC (Bld) 2.3 % Normal 0.0-6.[address] [facility] Comment on above: Performed By: #### C MP, ADIFF, CBC, PBNP, GFR, ANEU #### [address] [address] Lymphocyte, Absolute 2.2 10 3/mcL Normal 0.9-4.3 [facility] Comment on above: Performed By: #### C MP, ADIFF, CBC, PBNP, GFR, ANEU #### [address] [address] Lymphocytes/100 WBC (Bld) 29.0 % Normal 20.0-40.[address] [facility] Comment on above: Performed By: #### C MP, ADIFF, CBC, PBNP, GFR, ANEU #### [address] [address] Monocyte, Absolute 0.4 10 3/mcL Normal 0.1-1.4 [facility] Comment on above: Performed By: #### C MP, ADIFF, CBC, PBNP, GFR, ANEU #### [address] [address] Monocytes/100 WBC (Bld) 5.0 % Normal 2.0-13.[address] [facility] Comment on above: Performed By: #### C MP, ADIFF, CBC, PBNP, GFR, ANEU #### [address] [address] Neutrophils/100 WBC (Bld) 63.2 % Normal 50.0-75.[address] [facility] Comment on above: Performed By: #### C MP, ADIFF, CBC, PBNP, GFR, ANEU #### [address] [address] .GFRon 11-06-2024 Estimated Glomerular Filtration Rate 74 ml/min/1.73sqm Normal [facility] Comment on above: Result Comment: Stages [...] MP, ADIFF, CBC, PBNP, GFR, ANEU #### [place] [address] .NEUABSon 11-06-2024 Neutrophil, Absolute 4.9 10 3/mcL Normal 2.3-8.1 [facility] Comment on above: Performed By: #### C MP, ADIFF, CBC, PBNP, GFR, ANEU #### [place] [address] CBCon 11-06-2024 Erythrocyte distribution width (RBC) [Ratio] 16.2 % High 11.5-15.[address] [facility] Comment on above: Performed By: #### C MP, ADIFF, CBC, PBNP, GFR, ANEU #### [place] [address] Hematocrit (Bld) [Volume fraction] 35.3 % Normal 34.0-46.[address] [facility] Comment on above: Performed By: #### C MP, ADIFF, CBC, PBNP, GFR, ANEU #### [place] [address] Hgb 11.4 G/dL Low 12.0-16.[address] [facility] Comment on above: Performed By: #### C MP, ADIFF, CBC, PBNP, GFR, ANEU #### [place] [address] MCH (RBC) [Entitic mass] 25.3 pg Low 27.0-33.[address] [facility] Comment on above: Performed By: #### C MP, ADIFF, CBC, PBNP, GFR, ANEU #### [place] [address] MCHC 32.5 G/dL Normal 32.0-36.[address] [facility] Comment on above: Performed By: #### C MP, ADIFF, CBC, PBNP, GFR, ANEU #### [place] [address] MCV (RBC) [Entitic vol] 78.0 fL Low 80.0-99.[address] [facility] Comment on above: Performed By: #### C MP, ADIFF, CBC, PBNP, GFR, ANEU #### [address] [address] Platelet 189 10 3/mcL Normal 150-[address] [facility] Comment on above: Performed By: #### C MP, ADIFF, CBC, PBNP, GFR, ANEU #### [address] [address] Platelet mean volume (Bld) [Entitic vol] 8.3 fL Normal 6.6-10.[address] [facility] Comment on above: Performed By: #### C MP, ADIFF, CBC, PBNP, GFR, ANEU #### [address] [address] RBC 4.52 10 6/mcL Normal 4.10-5.[address] [facility] Comment on above: Performed By: #### C MP, ADIFF, CBC, PBNP, GFR, ANEU #### [address] [address] WBC 7.7 10 3/mcL Normal 4.5-10.[address] [facility] Comment on above: Performed By: #### C MP, ADIFF, CBC, PBNP, GFR, ANEU #### [address] [address] CMPon 11-06-2024 Albumin Level 2.9 G/dL Low 3.5-5.[address] [facility] Comment on above: Performed By: #### C MP, ADIFF, CBC, PBNP, GFR, ANEU #### [address] [address] Albumin/Globulin [Mass ratio] 0.5 {ratio} Low 1.1-2.[address] [facility] Comment on above: Performed By: #### C MP, ADIFF, CBC, PBNP, GFR, ANEU #### [address] [address] ALP [Catalytic activity/Vol] 194 U/L High 40-[address] [facility] Comment on above: Performed By: #### C MP, ADIFF, CBC, PBNP, GFR, ANEU #### [address] [address] ALT [Catalytic activity/Vol] 89 U/L High 14-[address] [facility] Comment on above: Performed By: #### C MP, ADIFF, CBC, PBNP, GFR, ANEU #### [address] [address] AST [Catalytic activity/Vol] 100 U/L High 10-[address] [facility] Comment on above: Performed By: #### C MP, ADIFF, CBC, PBNP, GFR, ANEU #### [address] [address] Bili Total 0.3 mg/dL Normal 0.2-1.[address] [facility] Comment on above: Result Comment: Use of this assay is not recommended for patients undergoing treatment with eltrombopag due to the potential for falsely elevated results. Performed By: #### C MP, ADIFF, CBC, PBNP, GFR, ANEU #### [address] [address] BUN/Creatinine Ratio 24 ratio Normal 7-27 [facility] Comment on above: Performed By: #### C MP, ADIFF, CBC, PBNP, GFR, ANEU #### [address] [address] Calcium [Mass/Vol] 8.7 mg/dL Normal 8.4-10.2 [facility] Comment on above: Performed By: #### C MP, ADIFF, CBC, PBNP, GFR, ANEU #### [address] [address] Chloride [Moles/Vol] 97 mmol/L Low 98-107 [facility] Comment on above: Performed By: #### C MP, ADIFF, CBC, PBNP, GFR, ANEU #### [address] [address] CO2 [Moles/Vol] 32 mmol/L High 22-[address] [facility] Comment on above: Performed By: #### C MP, ADIFF, CBC, PBNP, GFR, ANEU #### [address] [address] Creatinine [Mass/Vol] 0.91 mg/dL Normal 0.55-1.02 [facility] Comment on above: Result Comment: Test ing performed on Siemens Dimension EXL analyzer using a modified kinetic Avila technique. Performed By: #### C MP, ADIFF, CBC, PBNP, GFR, ANEU #### [place] [address] Electrolyte Balance 1.0 mEq/L Low 4.0-15.0 [facility] Comment on above: Performed By: #### C MP, ADIFF, CBC, PBNP, GFR, ANEU #### [place] [address] Globulin 5.6 G/dL High 1.5-3.[address] [facility] Comment on above: Performed By: #### C MP, ADIFF, CBC, PBNP, GFR, ANEU #### [place] [address] Glucose [Mass/Vol] 394 mg/dL High 70-105 [facility] Comment on above: Performed By: #### C MP, ADIFF, CBC, PBNP, GFR, ANEU #### [place] [address] Potassium [Moles/Vol] 4.9 mmol/L Normal 3.5-5.1 [facility] Comment on above: Performed By: #### C MP, ADIFF, CBC, PBNP, GFR, ANEU #### [place] [address] Sodium [Moles/Vol] 130 mmol/L Low 136-145 [facility] Comment on above: Performed By: #### C MP, ADIFF, CBC, PBNP, GFR, ANEU #### [place] [address] Total Protein 8.5 G/dL High 6.4-8.[address] [facility] Comment on above: Performed By: #### C MP, ADIFF, CBC, PBNP, GFR, ANEU #### [facility] [address] [place], [place] [address] Urea nitrogen [Mass/Vol] 22 mg/dL High 7-[address] [facility] Comment on above: Performed By: #### C MP, ADIFF, CBC, PBNP, GFR, ANEU #### [facility] [address] [place], [place] [address] LABORATORYOrdered By: SYSTEM SYSTEM on 11-06-2024 Albumin [...] B (Bld) [Mass/Vol] 77 pg/mL Normal 0-[address] [facility] Comment on above: Result Comment: NT-p roBNP results of less than 300 pg/mL effectively rules out acute congestive heart failure with 99% negative predictive value. Performed By: #### C MP, ADIFF, CBC, PBNP, GFR, ANEU #### [place] [address] [id number] [place], [place] [address] Urine Cultureon 11-06-2024 URC Organism is too fast idious for routine susceptibility studies. Urine Culture Aerococcus urinae [place] Count 50,000-80,000 Normal [facility] Comment on above: Performed By: #### M 100.2200 ####[facility] [address] [place], [address] Absolute lymphocyte countOrd ered By: Velasquez Hill on 11-03-2024 Lymphocytes Auto (Unsp spec) [#/Vol] 2.97 10*3/uL 0.83-4.51 [facility] Absolute neutrophil countOrd ered By: Velasquezjack Hill on 11-03-2024 Neutrophils (Bld) [#/Vol] 5.6 10*3/uL 2.0-7.7 [facility] Anion gap in Serum or Plasma Ordered By: Velasquez Hill on 11-03-2024 Anion gap [Moles/Vol] 8 mmol/L 12-03 [facility] Automated lymphocyte count a s percentage of total leukocytesOrdered By: Velasquez Hill on 11-03-2024 Lymphocytes/100 WBC Auto (Unsp spec) 31.4 % [facility] BUN/creatinine ratioOrdered By: Velasquez Hill on 11-03-2024 Urea nitrogen/Creatinine [Mass ratio] 23.0 mg/mg High 05-10 [facility] Basic Metabolic Profile (BMP )on 11-03-2024 BUN/CRE 23.0 RATIO High - [facility] Comment on above: Performed By: #### L 501.6901, L500.2500, L100.0100 ####[facility] [address] [place], [address] Calcium [Mass/Vol] 9.3 mg/dL Normal 7.6-11.0 [facility] Comment on above: Performed By: #### L 501.6901, L500.2500, L100.0100 ####[facility] [address] [place], [address] Chloride [Moles/Vol] 98 mmol/L Normal 98-108 [facility] Comment on above: Performed By: #### L 501.6901, L500.2500, L100.0100 ####[facility] [address] [place], [address] CO2 [Moles/Vol] 25.3 mmol/L Normal 21.0-32.0 [facility] Comment on above: Performed By: #### L 501.6901, L500.2500, L100.0100 ####[facility] [address] [place], [address] Creatinine [Mass/Vol] 1.02 mg/dL Normal 0.70-1.20 [facility] Comment on above: Performed By: #### L 501.6901, L500.2500, L100.0100 ####[facility] [address] [place], [address] ECRCL 70.28 ml/min Normal 50-250 [facility] Comment on above: Performed By: #### L 501.6901, L500.2500, L100.0100 ####[facility] [address] [place], [address] GAP 8 Normal 5-15 [facility] Comment on above: Performed By: #### L 501.6901, L500.2500, L100.0100 ####[facility] [address] [place], [address] GFR/1.73 sq M.predicted among non-blacks MDRD (S/P/Bld) [Vol rate/Area] 64 mL/min/{1.73_m2} Normal >60 [facility] Comment on above: Result Comment: mL/m in/1.73m2 CKD-EPI Creatinine Equation (2020) Performed By: #### L 501.6901, L500.2500, L100.0100 ####[facility] [address] [place], [address] Glucose [Mass/Vol] 391 mg/dL High 70-99 [facility] Comment on above: Performed By: #### L 501.6901, L500.2500, L100.0100 ####[facility] [address] [place], [address] Potassium [Moles/Vol] 4.9 mmol/L Normal 3.3-5.1 [facility] Comment on above: Performed By: #### L 501.6901, L500.2500, L100.0100 ####[facility] [address] [place], [address] Sodium [Moles/Vol] 132 mmol/L Low 133-145 [facility] Comment on above: Performed By: #### L 501.6901, L500.2500, L100.0100 ####[facility] [address] [place], [address] Urea nitrogen [Mass/Vol] 24 mg/dL High 4-19 [facility] Comment on above: Performed By: #### L 501.6901, L500.2500, L100.0100 ####[facility] [address] [place], [address] Basophil percentageOrdered B y: Velasquez Hill on 11-03-2024 Basophils/100 WBC (Bld) 0.7 % 0-1 [facility] Beta hydroxybutyrate [Mass/V ol]Ordered By: Velasquez Hill on 11-03-2024 Beta-Hydroxybutyric Acid mmol/L 0.1 mmol/L 0.0-0.3 [facility] Beta-Hydroxbytyrateon 2024 BETA-HYDROXYBUT 0.1 mmol/L Normal 0.0-0.3 [facility] Comment on above: Performed By: #### L 501.6901, L500.2500, L100.0100 ####[facility] [address] [place], [address] Beta-hydroxybutyrateOrdered By: Velasquez Hill on 11-03-2024 Beta hydroxybutyrate [Mass/Vol] 0.1 mmol/L 0.0-0.3 [facility] Bilirubin Test strip Ql (U)O rdered By: Velasquez Hill on 11-03-2024 Bilirubin Ql (U) Negative Negative [facility] CBC W/Diff, Automatedon 10-20 Absolute Lymph 2.97 X10 3/uL Normal 0.83-4.51 [facility] Comment on above: Performed By: #### L 501.6901, L500.2500, L100.0100 ####[facility] [address] [place], [address] Absolute Neut 5.6 X10 3/uL Normal 2.0-7.7 [facility] Comment on above: Performed By: #### L 501.6901, L500.2500, L100.0100 ####[facility] [address] [place], [address] Basophils/100 WBC (Bld) 0.7 % Normal 0-1 [facility] Comment on above: Performed By: #### L 501.6901, L500.2500, L100.0100 ####[facility] [address] [place], [address] Eosinophils/100 WBC (Bld) 1.9 % Normal 0-5 [facility] Comment on above: Performed By: #### L 501.6901, L500.2500, L100.0100 ####[facility] [address] [place], [address] Erythrocyte distribution width (RBC) [Ratio] 15.3 % High 11.6-14.6 [facility] Comment on above: Performed By: #### L 501.6901, L500.2500, L100.0100 ####[facility] [address] [place], [address] Hematocrit (Bld) [Volume fraction] 36.1 % Low 37-47 [facility] Comment on above: Performed By: #### L 501.6901, L500.2500, L100.0100 ####[facility] [address] [place], [address] Hemoglobin (Bld) [Mass/Vol] 11.7 g/dL Low 12.0-15.0 [facility] Comment on above: Performed By: #### L 501.6901, L500.2500, L100.0100 ####[facility] [address] [place], [address] IG% 1.800 High 0.0-0.9 [facility] Comment on above: Result Comment: IG% - Immature Granulocytes (promyelocytes, myelocytes andmetamyelocytes) > 1% indicates that a LEFT SHIFT is Present. Performed By: #### L 501.6901, L500.2500, L100.0100 ####[facility] [address] [place], [address] Lymphocytes/100 WBC (Bld) 31.4 % Normal 19-41 [facility] Comment on above: Performed By: #### L 501.6901, L500.2500, L100.0100 ####[facility] [address] [place], [address] MCH (RBC) [Entitic mass] 25.3 pg Low 27.0-32.0 [facility] Comment on above: Performed By: #### L 501.6901, L500.2500, L100.0100 ####[facility] [address] [place], [address] MCHC (RBC) [Mass/Vol] 32.4 g/dL Normal 32-36 [facility] Comment on above: Performed By: #### L 501.6901, L500.2500, L100.0100 ####[facility] [address] [place], [address] MCV (RBC) [Entitic vol] 78.1 fL Low 81-99 [facility] Comment on above: Performed By: #### L 501.6901, L500.2500, L100.0100 ####[facility] [address] [place], [address] Monocytes/100 WBC (Bld) 5.3 % Normal 0-10 [facility] Comment on above: Performed By: #### L 501.6901, L500.2500, L100.0100 ####[facility] [address] [place], [address] Neutrophils/100 WBC (Bld) 58.9 % Normal 47-70 [facility] Comment on above: Performed By: #### L 501.6901, L500.2500, L100.0100 ####[facility] [address] [place], [address] Nucleated RBC (Bld) [#/Vol] 0 10*3/uL Normal 0-5 [facility] Comment on above: Performed By: #### L 501.6901, L500.2500, L100.0100 ####[facility] [address] [place], [address] Platelet mean volume (Bld) [Entitic vol] 9.9 fL Normal 6.2-12.0 [facility] Comment on above: Performed By: #### L 501.6901, L500.2500, L100.0100 ####[facility] [address] [place], [address] Platelets (Bld) [#/Vol] 203 10*3/uL Normal 150-450 [facility] Comment on above: Performed By: #### L 501.6901, L500.2500, L100.0100 ####[facility] [address] [place], [address] RBC (Bld) [#/Vol] 4.62 10*6/uL Normal 4.2-5.4 [facility] Comment on above: Performed By: #### L 501.6901, L500.2500, L100.0100 ####[facility] [address] [place], [address] RDW SD 43.0 fl Normal 35.1-43.9 [facility] Comment on above: Performed By: #### L 501.6901, L500.2500, L100.0100 ####[facility] [address] [place], [address] WBC (Bld) [#/Vol] 9.5 10*3/uL Normal 4.4-11.0 [facility] Comment on above: Performed By: #### L 501.6901, L500.2500, L100.0100 ####[facility] [address] [place], [address] Carbon dioxide, total [Moles /volume] in Central venous bloodOrdered By: Velasquez Hill on 11-03-2024 CO2 [Moles/Vol] 25.3 mmol/L 21.0-32.0 [facility] Chloride assayOrdered By: Sebas Hill on 11-03-2024 Chloride [Moles/Vol] 98 mmol/L 98-108 [facility] Emergency Department Summary on 11-03-2024 Emergency Department Summary Normal [facility] Eosinophil percentageOrdered By: Velasquez Hill on 11-03-2024 Eosinophils/100 WBC (Bld) 1.9 % 0-5 [facility] Epithelial cells.squamous LM Ql (Urine sed)Ordered By: Velasquez Hill on 11-03-2024 Epithelial cells.squamous LM.HPF (Urine sed) [#/Area] 0 /[HPF] 5-10 [facility] Erythrocyte distribution wid th (RBC) [Ratio]Ordered By: Velasquez Hill on 11-03-2024 Erythrocyte distribution width (RBC) [Entitic vol] 43.0 fL 35.1-43.9 [facility] Erythrocyte distribution wid th ratioOrdered By: Velasquez Hill on 11-03-2024 Erythrocyte distribution width (RBC) [Ratio] 15.3 % High 11.6-14.6 [facility] Erythrocyte distribution wid th standard deviationOrdered By: Velasquez Hill on 11-03-2024 Erythrocyte distribution width (RBC) [Ratio] 43.0 fl 35.1-43.9 [facility] Estimation of creatinine carol aranceOrdered By: Velasquez Hill on 11-03-2024 Estimated Creatinine Clearance Calc 70.28 ml/min 50-250 [facility] GFR/1.73 sq M.predicted jace g non-blacks MDRD (S/P/Bld) [Vol rate/Area]Ordered By: Velasquez Hill on 11-03-2024 Estimated GFR (MDRD) Non-Af Amer 64 >60 [facility] Comment on above: mL/min/1.73m2 CKD-EP I Creatinine Equation (2020) Glomerular filtration rate ( GFR) estimation/1.73 sq m using serum, plasma, or whole bOrdered By: Velasquez Hill on 11-03-2024 GFR/1.73 sq M.predicted among non-blacks MDRD (S/P/Bld) [Vol rate/Area] 64 mL/min/{1.73_m2} >60 [facility] Comment on above: mL/min/1.73m2 CKD-EP I Creatinine Equation (2020) Glucose Ql (U)Ordered By: Sebas Hill on 11-03-2024 Glucose (U) [Mass/Vol] 1000 mg/dL High Normal [facility] Hematocrit Auto (Bld) [Volum e fraction]Ordered By: Velasquez Hill on 11-03-2024 Hematocrit (Bld) [Volume fraction] 36.1 % Low 37-47 [facility] Hemoglobin measurementOrdere d By: Velasquez Hill on 11-03-2024 Hemoglobin (Bld) [Mass/Vol] 11.7 g/dL Low 12.0-15.0 [facility] Immature granulocytes/100 WB C Auto (Bld)Ordered By: Velasquez Hill on 11-03-2024 Immature granulocytes/100 WBC (Bld) 1.800 % High 0.0-0.9 [facility] Comment on above: IG% - Immature Granu locytes (promyelocytes, myelocytes and metamyelocytes) > 1% indicates that a LEFT SHIFT is Present. Ketones Test strip Ql (U)Ord ered By: Velasquez Hill on 11-03-2024 Ketones Ql (U) Negative Negative [facility] Lymphocytes Auto (Unsp spec) [#/Vol]Ordered By: Velasquez Hill on 11-03-2024 Lymphocytes (Bld) [#/Vol] 2.97 10*3/uL 0.83-4.51 [facility] Lymphocytes/100 WBC Auto (Un sp spec)Ordered By: Velasquez Hill on 11-03-2024 Lymphocytes/100 WBC (Bld) 31.4 % 19-41 [facility] MCV (mean corpuscular volume ) determinationOrdered By: Velasquez Hill on 11-03-2024 MCV (RBC) [Entitic vol] 78.1 fL Low 81-99 [facility] Mean corpuscular hemoglobin (MCH) determinationOrdered By: Velasquez Hill on 11-03-2024 MCH (RBC) [Entitic mass] 25.3 pg Low 27.0-32.0 [facility] Mean corpuscular hemoglobin concentration (MCHC) determinationOrdered By: Velasquez Hill on 11-03-2024 MCHC (RBC) [Mass/Vol] 32.4 g/dL 32-36 [facility] Mean platelet volume determi nationOrdered By: Velasquez Hill on 11-03-2024 Platelet mean volume (Bld) [Entitic vol] 9.9 fL 6.2-12.0 [facility] Microscopic analysis of urin e for red blood cells (RBC)Ordered By: Velasquez Hill on 11-03-2024 Microscopic analysis of urine for red blood cells (RBC) 25-50 SEEN /hpf 0-5 [facility] Urine RBC 25-50 SEEN /hpf 0-5 [facility] Monocyte percentageOrdered B y: Velasquez Hill on 11-03-2024 Monocytes/100 WBC (Bld) 5.3 % 0-10 [facility] Mucus LM Ql (Urine sed)Order ed By: Velasquez Hill on 11-03-2024 Mucus Ql (Urine sed) 0 SEEN /hpf [facility] [facility] Neutrophil percentageOrdered By: Velasquez Hill on 11-03-2024 Neutrophils/100 WBC (Bld) 58.9 % 47-70 [facility] Nitrite Test strip Ql (U)Ord ered By: Velasquez Hill on 11-03-2024 Nitrite Ql (U) Negative Negative [facility] Nucleated red blood cell per centageOrdered By: Velasquez Hill on 11-03-2024 Nucleated RBC/100 WBC (Bld) [Ratio] 0 % 0-5 [facility] Platelet countOrdered By: Sebas Hill on 11-03-2024 Platelets (Bld) [#/Vol] 203 10*3/uL 150-450 [facility] Potassium (Unsp spec) [Mass/ Vol]Ordered By: Velasquez Hill on 11-03-2024 Potassium [Moles/Vol] 4.9 mmol/L 3.3-5.1 [facility] Potassium measurement (mass/ volume)Ordered By: Velasquez Hill on 11-03-2024 Potassium (Unsp spec) [Mass/Vol] 4.9 mmol/L 3.3-5.1 [facility] Protein Test strip Ql (U)Ord ered By: Velasquez Hill on 11-03-2024 Protein Ql (U) 30 mg/dl High Negative [facility] RBC Auto (Bld) [#/Vol]Ordere d By: Velasquez Hill on 11-03-2024 RBC (Bld) [#/Vol] 4.62 10*6/uL 4.2-5.4 [facility] Serum creatinine measurement (mass/volume)Ordered By: Velasquez Hill on 11-03-2024 Creatinine [Mass/Vol] 1.02 mg/dL 0.70-1.20 [facility] Serum glucose measurement (m ass/volume)Ordered By: Velasquez Hill on 11-03-2024 Glucose [Mass/Vol] 391 mg/dL High 70-99 [facility] Serum or plasma calcium janie urement (mass/volume)Ordered By: Velasquez Hill on 11-03-2024 Calcium [Mass/Vol] 9.3 mg/dL 7.6-11.0 [facility] Serum or plasma urea nitroge n measurement (mass/volume)Ordered By: Velasquez Hill on 11-03-2024 Urea nitrogen [Mass/Vol] 24 mg/dL High 4-19 [facility] Sodium levelOrdered By: Velasquez Hill on 11-03-2024 Sodium [Moles/Vol] 132 mmol/L Low 133-145 [facility] Squamous epithelial cells de tection in urine sediment by light microscopyOrdered By: Velasquez Hill on 11-03-2024 Epithelial cells.squamous LM Ql (Urine sed) 0-5 SEEN /hpf 5- [facility] Urinalysis, Completeon 11-03 BACTERIA 1+ /hpf Normal None Seen [facility] Comment on above: Order Comment: CLEAN CATCH Performed By: #### L 400.0001 ####[facility] [address] [place], [address] EPI,SQUAMOUS 0-5 SEEN Normal 5-10 [facility] Comment on above: Order Comment: CLEAN CATCH Performed By: #### L 400.0001 ####[facility] [address] [place], [address] RBC 25-50 SEEN Normal 0-5 [facility] Comment on above: Order Comment: CLEAN CATCH Performed By: #### L 400.0001 ####[facility] [address] [place], [address] WBC 25-50 SEEN Normal 0-5 [facility] Comment on above: Order Comment: CLEAN CATCH Performed By: #### L 400.0001 ####[facility] [address] [place], [address] Mucus Ql (Urine sed) 0 SEEN Normal [facility] Comment on above: Order Comment: CLEAN CATCH Performed By: #### L 400.0001 ####[facility] [address] [place], [address] Urine blood detectionOrdered By: Velasquez Hill on 11-03-2024 Urine Occult Blood 150 /ul High Negative [facility] Urine clarityOrdered By: Loan Hill on 11-03-2024 Clarity (U) Clear Clear [facility] Urine color determinationOrd ered By: Velasquez Hill on 11-03-2024 Color (U) Yellow Yellow [facility] Urine cultureOrdered By: Loan Hill on 11-03-2024 Bacteria identified Cx Nom (U) Aerococcus urinae Abnormal [facility] Urine glucose detectionOrder ed By: Velasquez Hill on 11-03-2024 Glucose Ql (U) 1000 mg/dl High Normal [facility] Urine leukocyte esterase det ection by dipstickOrdered By: Velasquez Hill on 11-03-2024 Leukocyte esterase Test strip Ql (U) 25 /ul High Negative [facility] Urine pHOrdered By: Velasquez calderon on 11-03-2024 pH (U) 6.0 [pH] 5.0 - 8.0 [facility] Urine sediment bacteria coun t by microscopy (number/high power field)Ordered By: Velasquez Hill on 11-03-2024 Bacteria LM.HPF (Urine sed) [#/Area] 1 /[HPF] None Seen [facility] Urine specific gravity measu rementOrdered By: Velasquez Hill on 11-03-2024 Specific gravity (U) [Rel density] 1.015 1.002-1.030 [facility] Urine urobilinogen measureme ntOrdered By: Velasquez Hill on 11-03-2024 Urobilinogen Ql (U) Normal mg/dl Normal [facility] Urobilinogen Ql (U)Ordered B y: Velasquez Hill on 11-03-2024 Urine Urobilinogen Normal mg/dl Normal [facility] White blood cell (WBC) count Ordered By: Velasquez Hill on 11-03-2024 WBC (Bld) [#/Vol] 9.5 10*3/uL 4.4-11.0 [facility] White blood cell countOrdere d By: Velasquez Hill on 11-03-2024 Urine WBC 25-50 SEEN /hpf 0-5 [facility] White blood cell count 25-50 SEEN /hpf 0-5 [facility] Pulmonary Visit Reporton Pulmonary Visit Report Normal [facility] 6 Minute Walk Teston 025 6 Minute Walk Test Normal [facility] 10-04-2024 U Ratio Alb/Cre 454 mg/G High 0-[address] [facility] Comment on above: Performed By: #### C MP, ADIFF, CBC, PBNP, GFR, ANEU #### [facility] [address] [place], [place] [address] Emergency Department Summary on 09-30-2024 Emergency Department Summary Normal [facility] Foot min 3 Viewson 5 Foot min 3 Views Normal [facility] Absolute lymphocyte countOrd ered By: Scott Berrios on 09-24-2024 Lymphocytes Auto (Unsp spec) [#/Vol] 2.28 10*3/uL 0.83-4.51 [facility] Absolute neutrophil countOrd ered By: Scott Berrios on 09-24-2024 Neutrophils (Bld) [#/Vol] 7.9 10*3/uL High 2.0-7.7 [facility] Automated lymphocyte count a s percentage of total leukocytesOrdered By: Scott Berrios on 09-24-2024 Lymphocytes/100 WBC Auto (Unsp spec) 20.7 % 19-41 [facility] Basophil percentageOrdered B y: Scott Berrios on 09-24-2024 Basophils/100 WBC (Bld) 0.6 % 0-1 [facility] CBC W/Diff, Automatedon Absolute Lymph 2.28 X10 3/uL Normal 0.83-4.51 [facility] Comment on above: Performed By: #### L 100.0100 ####[facility] [address] [place], [address] Absolute Neut 7.9 X10 3/uL High 2.0-7.7 [facility] Comment on above: Performed By: #### L 100.0100 ####[facility] [address] [place], [address] Basophils/100 WBC (Bld) 0.6 % Normal 0-1 [facility] Comment on above: Performed By: #### L 100.0100 ####[facility] [address] [place], [address] Eosinophils/100 WBC (Bld) 2.0 % Normal 0-5 [facility] Comment on above: Performed By: #### L 100.0100 ####[facility] [address] [place], [address] Erythrocyte distribution width (RBC) [Ratio] 15.5 % High 11.6-14.6 [facility] Comment on above: Performed By: #### L 100.0100 ####[facility] [address] [place], [address] Hematocrit (Bld) [Volume fraction] 36.8 % Low 37-47 [facility] Comment on above: Performed By: #### L 100.0100 ####[facility] [address] [place], [address] Hemoglobin (Bld) [Mass/Vol] 11.7 g/dL Low 12.0-15.0 [facility] Comment on above: Performed By: #### L 100.0100 ####[facility] [address] [place], [address] IG% 1.100 High 0.0-0.9 [facility] Comment on above: Result Comment: IG% - Immature Granulocytes (promyelocytes, myelocytes andmetamyelocytes) > 1% indicates that a LEFT SHIFT is Present. Performed By: #### L 100.0100 ####[facility] [address] [place], [address] Lymphocytes/100 WBC (Bld) 20.7 % Normal 19-41 [facility] Comment on above: Performed By: #### L 100.0100 ####[facility] [address] [place], [address] MCH (RBC) [Entitic mass] 25.0 pg Low 27.0-32.0 [facility] Comment on above: Performed By: #### L 100.0100 ####[facility] [address] [place], [address] MCHC (RBC) [Mass/Vol] 31.8 g/dL Low 32-36 [facility] Comment on above: Performed By: #### L 100.0100 ####[facility] [address] [place], [address] MCV (RBC) [Entitic vol] 78.6 fL Low 81-99 [facility] Comment on above: Performed By: #### L 100.0100 ####[facility] [address] [place], [address] Monocytes/100 WBC (Bld) 4.4 % Normal 0-10 [facility] Comment on above: Performed By: #### L 100.0100 ####[facility] [address] [place], [address] Neutrophils/100 WBC (Bld) 71.2 % High 47-70 [facility] Comment on above: Performed By: #### L 100.0100 ####[facility] [address] [place], [address] Nucleated RBC (Bld) [#/Vol] 0 10*3/uL Normal 0-5 [facility] Comment on above: Performed By: #### L 100.0100 ####[facility] [address] [place], [address] Platelet mean volume (Bld) [Entitic vol] 10.4 fL Normal 6.2-12.0 [facility] Comment on above: Performed By: #### L 100.0100 ####[facility] [address] [place], [address] Platelets (Bld) [#/Vol] 261 10*3/uL Normal 150-450 [facility] Comment on above: Performed By: #### L 100.0100 ####[facility] [address] [place], [place], [address] RBC (Bld) [#/Vol] 4.68 10*6/uL Normal 4.2-5.4 [facility] Comment on above: Performed By: #### L 100.0100 ####[facility] [address] [place], [place], [phone] RDW SD 42.7 fl Normal 35.1-43.9 [facility] Comment on above: Performed By: #### L 100.0100 ####[facility] [address] [place], [place], [address] WBC (Bld) [#/Vol] 11.0 10*3/uL Normal 4.4-11.0 [facility] Comment on above: Performed By: #### L 100.0100 ####[facility] [address] [place], [place], [id number] Endocrinology Visit Reporton 09-24-2024 Endocrinology Visit Report Normal [facility] Eosinophil percentageOrdered By: Scott Berrios on 09-24-2024 Eosinophils/100 WBC (Bld) 2.0 % 0-5 [facility] Erythrocyte distribution wid th ratioOrdered By: Scott Berrios on 09-24-2024 Erythrocyte distribution width (RBC) [Ratio] 15.5 % High 11.6-14.6 [facility] Erythrocyte distribution wid th standard deviationOrdered By: Scott Berrios on 09-24-2024 Erythrocyte distribution width (RBC) [Entitic vol] 42.7 fL 35.1-43.9 [facility] Erythrocyte distribution width (RBC) [Ratio] 42.7 fl 35.1-43.9 [facility] Hematocrit Auto (Bld) [Volum e fraction]Ordered By: Scott Berrios on 09-24-2024 Hematocrit (Bld) [Volume fraction] 36.8 % Low 37-47 [facility] Hemoglobin measurementOrdere d By: Scott Berrios on 09-24-2024 Hemoglobin (Bld) [Mass/Vol] 11.7 g/dL Low 12.0-15.0 [facility] Immature granulocytes/100 WB C Auto (Bld)Ordered By: Scott Berrios on 09-24-2024 Immature granulocytes/100 WBC (Bld) 1.100 % High 0.0-0.9 [facility] Comment on above: IG% - Immature Granu locytes (promyelocytes, myelocytes and metamyelocytes) > 1% indicates that a LEFT SHIFT is Present. Laboratory - Hematology and Cell countsOrdered By: Jaziel Drake on 09-24-2024 HbA1c (Bld) [Mass fraction] 11.4 % High 4.2-6.3 [facility] Lymphocytes Auto (Unsp spec) [#/Vol]Ordered By: Scott Berrios on 09-24-2024 Lymphocytes (Bld) [#/Vol] 2.28 10*3/uL 0.83-4.51 [facility] Lymphocytes/100 WBC Auto (Un sp spec)Ordered By: Scott Berrios on 09-24-2024 Lymphocytes/100 WBC (Bld) 20.7 % 19-41 [facility] MCV (mean corpuscular volume ) determinationOrdered By: Scott Berrios on 09-24-2024 MCV (RBC) [Entitic vol] 78.6 fL Low 81-99 [facility] Mean corpuscular hemoglobin (MCH) determinationOrdered By: Scott Berrios on 09-24-2024 MCH (RBC) [Entitic mass] 25.0 pg Low 27.0-32.0 [facility] Mean corpuscular hemoglobin concentration (MCHC) determinationOrdered By: Scott Berrios on 09-24-2024 MCHC (RBC) [Mass/Vol] 31.8 g/dL Low 32-36 [facility] Mean platelet volume determi nationOrdered By: Scott Berrios on 09-24-2024 Platelet mean volume (Bld) [Entitic vol] 10.4 fL 6.2-12.0 [facility] Monocyte percentageOrdered B y: Scott Berrios on 09-24-2024 Monocytes/100 WBC (Bld) 4.4 % 0-10 [facility] Neutrophil percentageOrdered By: Scott Berrios on 09-24-2024 Neutrophils/100 WBC (Bld) 71.2 % High 47-70 [facility] Nucleated red blood cell per centageOrdered By: Scott Berrios on 09-24-2024 Nucleated RBC/100 WBC (Bld) [Ratio] 0 % 0-5 [facility] Platelet countOrdered By: Sandrita Berrios on 09-24-2024 Platelets (Bld) [#/Vol] 261 10*3/uL 150-450 [facility] RBC Auto (Bld) [#/Vol]Ordere d By: Scott Berrios on 09-24-2024 RBC (Bld) [#/Vol] 4.68 10*6/uL 4.2-5.4 [facility] White blood cell (WBC) count Ordered By: Scott Berrios on 09-24-2024 WBC (Bld) [#/Vol] 11.0 10*3/uL 4.4-11.0 [facility] MA MAMMOGRAM SCREENING BILAT ERAL W/TOMOon 09-22-2024 MA MAMMOGRAM SCREENING BILATERAL W/JORGE ALBERTO ORIGINAL FROM: [address] [address] PROCEDURE FOR: LEROY MONTEJO [address] [facility] [address] [place] [id number] Home: PID#: [id number] Exam#: [id number] : 1965 Age: 58 TO: VERO ORTEZ APRN, CNP [place], [place] [address] EXAMINATION: SCREENING DIGITAL BILATERAL MAMMOGRAM WITH TOMOSYNTHESIS, [...] Continued screening with annual mammograms is recommended. Cynthia [place] risk calculations, generated with the history provided, [...] addition to annual mammographic screening per the [place] [employer]. BIRADS: BI-RADS: 2: Benign RECALL: 1 year screening RECALL TYPE: mammo LETTER SENT: Normal BI-RADS 1 and 2 Interpreted by: Amadou Saldana MD Preliminary Report By: Amadou Saldana MD Electronically signed By Amadou Saldana MD Dictated Date: 09/22/2024 5:03:08 PM Prelim Date: 09/22/2024 5:05:43 PM Sign Date: 09/22/2024 5:05:43 PM Ordering Provider: VERO ORTEZ Data Conversion Developer: MARISSA MORRISON RT (R)(M) letter sent: Normal BI-RADS 1 and 2 Mammogram BI-RADS: [address] [facility] Flagger Cytology Reporton 2024 Flagger Cytology Report . Pathology Reports Accession: Collected Date/Time: Received Date/Time: Pathologist: [id number] 09/02/2024 13:46 EST 09/02/2024 18:00 EST Flagger Cytology Report SPECIMEN: Specimen Description: Liquid Prep [...] and evaluated with the assistance of the [employer] Tech[employer] Test Imaging System. Pathology Reports Accession: Collected Date/Time: Received Date/Time: Pathologist: [id number] 09/02/2024 13:46 EST 09/02/2024 18:00 EST Verified by Pathology report verified by [facility] Screened by: [place] Electronically signed by Rosy MARS (ASCP) Sign-Out Date: 09/09/2024 15:21 Performing Lab: [address] Pathology Dept Disclaimer The Pap test is a screening test for cervical cancer. As evidenced by published data, it is subject to both inherent false negative and false positive results. Your patient's results should be interpreted in context with pertinent clinical history including gynecological examination. Normal [facility] HPVon 09-04-2024 HPV Interp Normal See Interp HPVN [facility] Comment on above: Order Comment: Order placed by AP_HPV_ORDER rule from [id number] Result Comment: High Risk HPV Typing: NEGATIVE [...] MP, ADIFF, CBC, PBNP, GFR, ANEU #### [facility] [address] [place], [place] [address] HPV Source Cervix Normal [facility] Comment on above: Order Comment: Order placed by AP_HPV_ORDER rule from [id number] Performed By: #### C MP, ADIFF, CBC, PBNP, GFR, ANEU #### [place] [address] [place], [place] [address] Pulmonary Visit Reporton Pulmonary Visit Report Normal [facility] CTPCRon 09-03-2024 C. trachomatis Interp Normal See CT Interp N [facility] Comment on above: Result Comment: C. t rachomatis DNA not detected. Specimen is presumptive negative for C. trachomatis. A negative result does not preclude C. trachomatis infection because results depend on adequate specimen collection, absence of inhibitors, and sufficient DNA to be detected. See CT Interp N Performed By: #### C TPCR, NGPCR1 #### [address] [address] C.trachomatis PCR Negative Normal Negative [facility] Comment on above: Result Comment: Mole cular (PCR) assay performed on the Mitali Suzie 4800 system. Performed By: #### C TPCR, NGPCR1 #### [address] [address] Chlam Source Urine Normal [facility] Comment on above: Performed By: #### C TPCR, NGPCR1 #### [place] [id number] GLUCOSE POCon 09-03-2024 Glucose [Mass/Vol] 336 mg/dL High 70 - 99 mg/dL [facility] Interpretation and review of laboratory results Abnormal [facility] POC Sample Type CAPBL [facility] Test performed at ad dress of the patient encounter. [facility] Glucose [Mass/Vol] 324 mg/dL High 70 - 99 mg/dL [facility] Interpretation and review of laboratory results Abnormal [facility] POC Sample Type CAPBL [facility] Test performed at ad dress of the patient encounter. [facility] Glucose [Mass/Vol] 371 mg/dL High 70 - 99 mg/dL [facility] Interpretation and review of laboratory results Abnormal [facility] POC Sample Type VENO [facility] Test performed at ad dress of the patient encounter. [facility] INTERVENTIONAL UPPER ENDOSCO PYon 09-03-2024 [facility] Gastroenterology Patient Name: Leroy Montejo Procedure Date: 09/03/2024 12:43 PM Date of : 1965 Admit Type: Outpatient Age: 58 Room: EUS Proc Room 01 Gender: Female Note Status: Finalized Attending MD: Velasquez Berry MD, [id number] Procedure: Upper GI endoscopy Indications: Follow-up of [...] tissue (more content not included)... LAB, [facility] Radiology Study observation (narrative) [facility] [id number] 09-03-2024 GC PCR Source Urine Normal [facility] Comment on above: Performed By: #### C TPCR, NGPCR1 #### [facility] [address] [place] [address] N. gonorrhoeae (PCR) Negative Normal Negative [facility] Comment on above: Result Comment: Mole cular (PCR) assay performed on the Mitali Suzie 4800 System. Performed By: #### C TPCR, NGPCR1 #### [facility] [address] [place] [address] N. gonorrhoeae Interp Normal See NG Interp N [facility] Comment on above: Result Comment: N. g onorrhoeae DNA not detected. Specimen is presumptive negative for N. gonorrhoeae. A negative result does not preclude Neisseria gonorrhoeae infection because results depend on adequate specimen collection, absence of inhibitors, and sufficient DNA to be detected. See NG Interp N Performed By: #### C TPCR, NGPCR1 #### [facility] [address] [place] [address] SURG PATH REQUESTon 09-03-19 Case Report Normal [facility] Comment on above: Result Comment: Surg ical Pathology Report Case: [id number] Authorizing Provider: Velasquez Berry MD Collected: 09/03/2024 01:18 PM Ordering Location: [facility] Endoscopy Received: 09/03/2024 02:37 PM Pathologist: ALINA Hart Specimens: A) - TISSUE, antral wall at 50 biopsy, prior EMR site B) - TISSUE, gastric polyps x 6, hx of neuroendocrine tumor Performed By: #### P CA #### [facility] (DEFAULT) [address] [address] Clinical History Neuroendocrine tumor [D3A.8]. Medical History: Diabetes mellitus. History of cancer. GERD (gastroesophageal reflux disease). Arthritis. Anxiety. Hyperlipidemia. Renal disease. Hyperthyroidism. Cirrhosis of liver. Obstructive sleep apnea. Liver disease. Normal [facility] Comment on above: Performed By: #### P CA #### [facility] (DEFAULT) [address] [place] [address] Gross Description Normal [facility] Comment on above: Result Comment: The specimens are received in two properly labeled containers with the patient's name and accession number. A. The specimen is designated antral wall at 50 biopsy, prior EMR site and consists of three, 0.2 to 0.5 cm perry-pink fragments of mucosal tissue. TE 1 B. The specimen is designated gastric polyps x6, history of neuroendocrine tumor and consists of six, 0.9 to 1.5 cm perry-pink, hyperemic, raised mucosal polyps along with a 1.5 x 0.7 x 0.2 cm aggregate of perry-pink mucosal tissue and clotted blood. The surgical margins of the six polyps are inked black and are sectioned and submitted entirely. TE 7 Cassettes: B1-B6, each block one polyp, trisected B7, additional aggregate of fragments Lab Use Only: JobID [id number] Grosser for this case was: Abram Hilton Performed By: #### P CA #### [facility] (DEFAULT) [address] [place] [address] Microscopic Description Normal [facility] Comment on above: Result Comment: A mi croscopic examination was performed. All controls show appropriate reactivity. All immunohistochemistry (IHC), in situ hybridization (ANNA), and histochemical tests were developed by and are performed at the [facility] Clinical Laboratory, Histology and IHC Lab, [address] [place] [address]. All Immunofluorescent (IF) tests were developed by and are performed at the [facility] Clinical Laboratory, Renal Division, [address] [place] [address]. All tests reported here, except for PD-L1, have not been cleared by or approved by the [place] Food and Drug Administration (FDA). The laboratory is regulated under CLIA as qualified to perform high-complexity testing. The tests are used for clinical purposes. They should not be regarded as investigational or for research. Performed By: #### P CA #### [facility] (DEFAULT) [address] [place] [address] Pathologic Diagnosis Normal [facility] Comment on above: Result Comment: A. 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 Clinical correlation is recommended. Cartography Supervisor slides were reviewed at the daily GI pathology consensus conference and those present in the meeting agreed with the above interpretation. at 1448 EST Performed By: #### P CA #### [facility] (DEFAULT) [address] [place] [address] Professional Interpretation Performed at: [facility] Comment on above: Result Comment: [facility] For Immediate Release to Patient's MyChart? Yes [address] [place] [address] Performed By: #### P CA #### [facility] (DEFAULT) [address] [place] [address] LABORATORYOrdered By: Robby Vega on 09-02-2024 Albumin [...] Negative 1 (09/02/24 4:25 PM) Normal Negative [facility] Comment on above: Interpretive [...] be detected. Normal See NG Interp N Auto Viro/Sero SS LABORATORYOrdered By: Rodney Brice [...] (Unsp spec) Cervix (09/02/24 1:46 PM) Normal AH [facility] Laboratory - Specimen inform ationOrdered By: Georgina Dyson on 09-02-2024 Specimen source Nom (Unsp spec) Urine (09/02/24 4:25 PM) Normal AH Auto Viro/Sero SS MALBRon 09-02-2024 U Creatinine 25.2 mg/dL Normal [facility] Comment on above: Performed By: #### C MP, ADIFF, CBC, PBNP, GFR, ANEU #### [facility] [address] [place], [place] [address] U Microalb 114.3 mg/L Normal [facility] Comment on above: Performed By: #### C MP, ADIFF, CBC, PBNP, GFR, ANEU #### [place] [address] [place], [place] [address] No Panel InformationOrdered By: Zion Bowman on 09-02-2024 Affirm Pathogens DNA Direct Probe Trichomonas vaginalis DNA Probe Negative Gardnerella vaginalis DNA Probe Negative Judie species DNA Probe Positive [facility] CBC AND ELECTRONIC DIFFon Basophils (Bld) [#/Vol] 0.05 10*3/uL Normal 0.00-0.15 [facility] Comment on above: Performed By: #### L [id number] #### [facility] (DEFAULT) [address] [address] Basophils/100 WBC (Bld) 0.5 % Normal [facility] Comment on above: Performed By: #### L [id number] #### [facility] (DEFAULT) [address] [address] DIFF STATUS Electronic Differential Normal [facility] Comment on above: Performed By: #### L AB980 #### [facility] (DEFAULT) [address] [address] Eosinophils (Bld) [#/Vol] 0.19 10*3/uL Normal 0.00-0.42 [facility] Comment on above: Performed By: #### L AB980 #### [facility] (DEFAULT) [address] [address] Eosinophils/100 WBC (Bld) 1.9 % Normal [facility] Comment on above: Performed By: #### L AB980 #### [facility] (DEFAULT) [address] [address] Hematocrit (Bld) [Volume fraction] 35.1 % Normal 34.9-44.3 [facility] Comment on above: Performed By: #### L AB980 #### [facility] (DEFAULT) [address] [address] Hemoglobin (Bld) [Mass/Vol] 11.2 g/dL Low 11.4-15.2 [facility] Comment on above: Performed By: #### L AB980 #### [facility] (DEFAULT) [address] [address] Immature Grans % 0.8 % Normal [facility] Comment on above: Performed By: #### L AB980 #### [facility] (DEFAULT) [address] [address] Immature Grans Absolute 0.08 K/uL Normal <=0.08 [facility] Comment on above: Performed By: #### L AB980 #### [facility] (DEFAULT) [address] [address] Lymphocytes (Bld) [#/Vol] 2.35 10*3/uL Normal 1.16-3.51 [facility] Comment on above: Performed By: #### L AB980 #### [facility] (DEFAULT) [address] [address] Lymphocytes/100 WBC (Bld) 23.3 % Normal [facility] Comment on above: Performed By: #### L AB980 #### [facility] (DEFAULT) [address] [address] MCV (RBC) [Entitic vol] 76.3 fL Low 79.6-97.7 [facility] Comment on above: Performed By: #### L AB980 #### [facility] (DEFAULT) [address] [address] Mean Cell Hgb 24.3 pg Low 25.9-33.9 [facility] Comment on above: Performed By: #### L AB980 #### [facility] (DEFAULT) [address] [address] Mean Cell Hgb Conc 31.9 g/dL Normal 31.4-35.9 [facility] Comment on above: Performed By: #### L AB980 #### [facility] (DEFAULT) [address] [address] Monocytes (Bld) [#/Vol] 0.56 10*3/uL Normal 0.22-0.87 [facility] Comment on above: Performed By: #### L AB980 #### [facility] (DEFAULT) [address] [address] Monocytes/100 WBC (Bld) 5.5 % Normal [facility] Comment on above: Performed By: #### L AB980 #### [facility] (DEFAULT) [address] [address] Nucleated RBC 0.0 /100 WBC Normal <=0.2 [facility] Comment on above: Performed By: #### L AB980 #### [facility] (DEFAULT) [address] [address] Platelet mean volume (Bld) [Entitic vol] 9.8 fL Normal 8.5-12.2 [facility] Comment on above: Performed By: #### L AB980 #### [facility] (DEFAULT) [address] [address] Platelets (Bld) [#/Vol] 215 10*3/uL Normal 150-393 [facility] Comment on above: Performed By: #### L AB980 #### [facility] (DEFAULT) [address] [place] [address] RBC (Bld) [#/Vol] 4.60 10*6/uL Normal 3.91-5.04 [facility] Comment on above: Performed By: #### L AB980 #### [facility] (DEFAULT) [address] [place] [address] RBC Distribution 16.2 % High 10.8-14.9 [facility] Comment on above: Performed By: #### L AB980 #### [facility] (DEFAULT) [address] [place] [address] Segs + Bands Auto 68.0 % Normal [facility] Comment on above: Performed By: #### L AB980 #### [facility] (DEFAULT) [address] [place] [address] Segs + Bands,Absolute Auto 6.87 K/uL Normal 1.64-7.28 [facility] Comment on above: Performed By: #### L AB980 #### [facility] (DEFAULT) [address] [place] [address] WBC (Bld) [#/Vol] 10.10 10*3/uL Normal 3.99-11.19 [facility] Comment on above: Performed By: #### L AB980 #### [facility] (DEFAULT) [address] [place] [address] FERRITINon 08-27-2024 Ferritin [Mass/Vol] 38.2 ng/mL Normal 7.3-270.7 [facility] Comment on above: Performed By: #### F ERIB #### [facility] (DEFAULT) [address] [address] IRON/IRON BINDING/TRANSFERRI Non 08-27-2024 Iron [Mass/Vol] 32 ug/dL Low 40-174 [facility] Comment on above: Performed By: #### C MPN, LDO #### [facility] (DEFAULT) [address] [place] [address] Iron Saturation 10 % Low 20-55 [facility] Comment on above: Performed By: #### C MPN, LDO #### [facility] (DEFAULT) [address] [place] [address] Total Iron Binding Capacity 311 mcg/dL Normal 250-425 [facility] Comment on above: Performed By: #### C MPN, LDO #### [facility] (DEFAULT) [address] [place] [address] Transferrin [Mass/Vol] 249 mg/dL Normal 200-400 [facility] Comment on above: Performed By: #### C MPN, LDO #### [facility] (DEFAULT) [address] [place] [address] Laboratory - Chemistry and C hemistry - challengeon 08-27-2024 Iron [Mass/Vol] 32 ug/dL Low [facility] Iron binding capacity [Mass/Vol] 311 [facility] Iron saturation [Mass fraction] 10 % Low 20 - 55 % [facility] Transferrin [Mass/Vol] 249 mg/dL 200 - 400 mg/dL [facility] Ferritin [Mass/Vol] 38.2 ng/mL 7.3 - 27 0.7 ng/mL [facility] No Panel Informationon 08-27 Interpretation and review of laboratory results Abnormal [facility] Interpretation and review of laboratory results Normal [facility] CT ABDOMEN/PELVIS WITH AND WITHOUT [...] error, please notify the sender immediately at [phone] and permanently delete the original report and destroy any copies or printouts. Normal [facility] ANTI PARIETAL ANTIBODYon Parietal Cell Antibody Positive Abnormal Negative [facility] Comment on above: Performed By: #### P CA #### [facility] (DEFAULT) [address] [address] Quantitative Parietal Cell Ab 1:160 Abnormal (none) [facility] Comment on above: Performed By: #### P CA #### [facility] (DEFAULT) [address] [address] CALCITONINon 08-14-2024 Calcitonin <5.00 Normal <=9.53 [facility] Comment on above: Result Comment: This test was performed on the [employer] Immunoassay platform by [employer] which is a two-site sandwich chemiluminescent immunoassay. It is important to note that assays using different manufacturers and/or methods may not be comparable. Performed By: #### P CA #### [facility] (DEFAULT) [address] [place] [address] CBC AND ELECTRONIC DIFFon Abs Baso Auto < Normal 0.00-0.15 [facility] Comment on above: Performed By: #### C MPN, LDO #### [facility] (DEFAULT) [address] [address] Basophils/100 WBC (Bld) 0.4 % Normal [facility] Comment on above: Performed By: #### C MPN, LDO #### [facility] (DEFAULT) [address] [address] DIFF STATUS Electronic Differential Normal [facility] Comment on above: Performed By: #### C MPN, LDO #### [facility] (DEFAULT) [address] [place] [address] Eosinophils (Bld) [#/Vol] 0.17 10*3/uL Normal 0.00-0.42 [facility] Comment on above: Performed By: #### C MPN, LDO #### [facility] (DEFAULT) [address] [place] [address] Eosinophils/100 WBC (Bld) 2.2 % Normal [facility] Comment on above: Performed By: #### C MPN, LDO #### [facility] (DEFAULT) [address] [address] Hematocrit (Bld) [Volume fraction] 35.8 % Normal 34.9-44.3 [facility] Comment on above: Performed By: #### C MPN, LDO #### [facility] (DEFAULT) [address] [address] Hemoglobin (Bld) [Mass/Vol] 10.5 g/dL Low 11.4-15.2 [facility] Comment on above: Performed By: #### C MPN, LDO #### [facility] (DEFAULT) [address] [address] Immature Grans % 0.9 % Normal [facility] Comment on above: Performed By: #### C MPN, LDO #### [facility] (DEFAULT) [address] [address] Immature Grans Absolute 0.07 K/uL Normal <=0.08 [facility] Comment on above: Performed By: #### C MPN, LDO #### [facility] (DEFAULT) [address] [address] Lymphocytes (Bld) [#/Vol] 2.51 10*3/uL Normal 1.16-3.51 [facility] Comment on above: Performed By: #### C MPN, LDO #### [facility] (DEFAULT) [address] [address] Lymphocytes/100 WBC (Bld) 33.2 % Normal [facility] Comment on above: Performed By: #### C MPN, LDO #### [facility] (DEFAULT) [address] [address] MCV (RBC) [Entitic vol] 79.4 fL Low 79.6-97.7 [facility] Comment on above: Performed By: #### C MPN, LDO #### [facility] (DEFAULT) [address] [place] [address] Mean Cell Hgb 23.3 pg Low 25.9-33.9 [facility] Comment on above: Performed By: #### C MPN, LDO #### [facility] (DEFAULT) [address] [place] [address] Mean Cell Hgb Conc 29.3 g/dL Low 31.4-35.9 [facility] Comment on above: Performed By: #### C MPN, LDO #### [facility] (DEFAULT) [address] [place] [address] Monocytes (Bld) [#/Vol] 0.43 10*3/uL Normal 0.22-0.87 [facility] Comment on above: Performed By: #### C MPN, LDO #### [facility] (DEFAULT) [address] [place] [address] Monocytes/100 WBC (Bld) 5.7 % Normal [facility] Comment on above: Performed By: #### C MPN, LDO #### [facility] (DEFAULT) [address] [place] [address] Nucleated RBC 0.0 /100 WBC Normal <=0.2 [facility] Comment on above: Performed By: #### C MPN, LDO #### [facility] (DEFAULT) [address] [place] [address] Platelet mean volume (Bld) [Entitic vol] 10.6 fL Normal 8.5-12.2 [facility] Comment on above: Performed By: #### C MPN, LDO #### [facility] (DEFAULT) [address] [place] [address] Platelets (Bld) [#/Vol] 223 10*3/uL Normal 150-393 [facility] Comment on above: Performed By: #### C MPN, LDO #### [facility] (DEFAULT) [address] [place] [address] RBC (Bld) [#/Vol] 4.51 10*6/uL Normal 3.91-5.04 [facility] Comment on above: Performed By: #### C MPN, LDO #### [facility] (DEFAULT) [address] [address] RBC Distribution 16.1 % High 10.8-14.9 [facility] Comment on above: Performed By: #### C MPN, LDO #### [facility] (DEFAULT) [address] [address] Segs + Bands Auto 57.6 % Normal [facility] Comment on above: Performed By: #### C MPN, LDO #### [facility] (DEFAULT) [address] [address] Segs + Bands,Absolute Auto 4.36 K/uL Normal 1.64-7.28 [facility] Comment on above: Performed By: #### C MPN, LDO #### [facility] (DEFAULT) [address] [address] WBC (Bld) [#/Vol] 7.57 10*3/uL Normal 3.99-11.19 [facility] Comment on above: Performed By: #### C MPN, LDO #### [facility] (DEFAULT) [address] [address] CHROMOGRANIN Aon 08-14-2024 Chromogranin A 1084 ng/mL High <93 [facility] Comment on above: Result Comment: Impa ired renal or hepatic function or treatment with proton pump inhibitors may result in artifactual elevations of Chromogranin A. ADDITIONAL INFORMATION The testing method is a homogeneous time-resolved immunofluorescent assay manufactured by [employer] and performed on the [employer] Kryptor Compact Plus. Values obtained with different [...] examination and other findings. Test Performed by: [facility] [address] [place] [address] [employer] Setup Operator: Juana Recio Ph.D.; CLIA# [id number] Performed By: #### C MPN, LDO #### [facility] (DEFAULT) [address] [address] COMPREHENSIVE METABOLIC PANE [place]akan 08-14-2024 Albumin [Mass/Vol] 3.5 g/dL Normal 3.5-5.0 [facility] Comment on above: Performed By: #### C MPN, LDO #### [facility] (DEFAULT) [address] [place] [address] ALP [Catalytic activity/Vol] 114 U/L Normal 32-126 [facility] Comment on above: Performed By: #### C MPN, LDO #### [facility] (DEFAULT) [address] [place] [address] ALT [Catalytic activity/Vol] 38 U/L Normal 9-48 [facility] Comment on above: Performed By: #### C MPN, LDO #### [facility] (DEFAULT) [address] [place] [address] Anion gap [Moles/Vol] 11 mmol/L Normal 7-17 [facility] Comment on above: Performed By: #### C MPN, LDO #### [facility] (DEFAULT) [address] [place] [address] AST [Catalytic activity/Vol] 54 U/L High 10-39 [facility] Comment on above: Performed By: #### C MPN, LDO #### [facility] (DEFAULT) [address] [place] [address] Bilirubin [Mass/Vol] 0.5 mg/dL Normal <1.5 [facility] Comment on above: Performed By: #### C MPN, LDO #### [facility] (DEFAULT) [address] [place] [address] Calcium [Mass/Vol] 9.2 mg/dL Normal 8.6-10.5 [facility] Comment on above: Performed By: #### C MPN, LDO #### [facility] (DEFAULT) [address] [place] [address] Chloride [Moles/Vol] 95 mmol/L Low 98-108 [facility] Comment on above: Performed By: #### C MPN, LDO #### [facility] (DEFAULT) [address] [place] [address] CO2 [Moles/Vol] 31 mmol/L Normal 21-31 [facility] Comment on above: Performed By: #### C MPN, LDO #### [facility] (DEFAULT) [address] [place] [address] Creatinine [Mass/Vol] 0.59 mg/dL Normal 0.50-1.20 [facility] Comment on above: Performed By: #### C MPN, LDO #### [facility] (DEFAULT) [address] [place] [address] eGFR, CKD-EPI, Female > Normal >=60 [facility] Comment on above: Result Comment: Repo rted eGFR is based on the CKD-EPI 1 equation using creatinine, age, and sex. Performed By: #### C MPN, LDO #### [facility] (DEFAULT) [address] [place] [address] Glucose [Mass/Vol] 210 mg/dL High 70-99 [facility] Comment on above: Performed By: #### C MPN, LDO #### [facility] (DEFAULT) [address] [place] [address] Osmolality [Osmolality] 287 mosm/kg Normal 278-305 [facility] Comment on above: Performed By: #### C MPN, LDO #### [facility] (DEFAULT) [address] [place] [address] Potassium [Moles/Vol] 4.2 mmol/L Normal 3.5-5.0 [facility] Comment on above: Performed By: #### C MPN, LDO #### [facility] (DEFAULT) [address] [place] [address] Protein [Mass/Vol] 8.1 g/dL Normal 6.4-8.3 [facility] Comment on above: Performed By: #### C MPN, LDO #### [facility] (DEFAULT) [address] [place] [address] Sodium [Moles/Vol] 133 mmol/L Low 135-145 [facility] Comment on above: Performed By: #### C MPN, LDO #### [facility] (DEFAULT) [address] [place] [address] Urea nitrogen [Mass/Vol] 12 mg/dL Normal 7-25 [facility] Comment on above: Performed By: #### C MPN, LDO #### [facility] (DEFAULT) [address] [place] [address] Urea nitrogen/Creatinine [Mass ratio] 20 mg/mg Normal [facility] Comment on above: Performed By: #### C MPN, LDO #### [facility] (DEFAULT) [address] [place] [address] GASTRIN - NON-STIMULATEDon 0 1-24-2024 Gastrin 537 pg/mL High [facility] Comment on above: Result Comment: REFERENCE VALUE <100 Reference ranges valid for >= 8 hour fast. Test Performed by: [facility] [place] [address] [employer] Setup Operator: Juana Recio Ph.D.; CLIA# [id number] Performed By: #### C MPN, LDO #### [facility] (DEFAULT) [address] [address] INTRINSIC FACTOR ANTIBODYon 08-14-2024 INTRINSIC FACTOR BLOCK AB COMMNT SEE COMMENTS Normal [facility] Comment on above: Result Comment: Intr insic Factor Blocking Antibody (IFBA) antibodies are absent in approximately 50% of individuals with pernicious anemia (PA). The absence of elevated IFBA antibodies does not rule out the presence of PA; further studies such as gastrin testing may be indicated. Test Performed by: [facility] [place] [address] [employer] Setup Operator: Juana Recio Ph.D.; CLIA# [id number] Performed By: #### C MPN, LDO #### [facility] (DEFAULT) [address] [address] Intrinsic Factor Blocking Antibody Negative Normal Negative [facility] Comment on above: Performed By: #### C MPN, LDO #### [facility] (DEFAULT) [address] [address] LACTATE DEHYDROGENASEon 07-23 LD Total 167 U/L Normal 100-190 [facility] Comment on above: Performed By: #### C MPN, LDO #### [facility] (DEFAULT) [address] [address] METHYLMALONIC ACIDon 025 METHYLMALONIC ACID 0.34 nmol/mL Normal <=0.40 [facility] Comment on above: Result Comment: ADDITIONAL INFORMATION This test was developed and its performance characteristics determined by [facility] in a manner consistent with CLIA requirements. This test has not been cleared or approved by the U.S. Food and Drug Administration. Test Performed by: [place] [address] [employer] Setup Operator: Juana Recio Ph.D.; CLIA# [id number] Performed By: #### Y MMA #### [facility] (DEFAULT) [address] [address] PANCREATIC POLYPEPTIDEon Pancreatic Polypeptide 538 pg/mL High <291 [facility] Comment on above: Result Comment: ADDITIONAL INFORMATION This test was developed and its performance characteristics determined by [facility] in a manner consistent with CLIA requirements. This test has not been cleared or approved by the U.S. Food and Drug Administration. Test Performed by: [facility] [address] [place] [address] [employer] Setup Operator: Juana Recio Ph.D.; CLIA# [id number] Performed By: #### P CA #### [facility] (DEFAULT) [address] [address] PTH INTACTon 08-14-2024 Intact PTH 19.6 pg/mL Normal 14.0-72.0 [facility] Comment on above: Performed By: #### C MPN, LDO #### [facility] (DEFAULT) [address] [address] VITAMIN B12on 08-14-2024 Cobalamin (Vitamin B12) [Mass/Vol] 296 pg/mL Normal 211-911 [facility] Comment on above: Result Comment: Test ing of Methylmalonic Acid and Intrinsic Factor Blocking Antibody are recommended if clinical suspicion for pernicious anemia due to B12 deficiency is high for patients with intermediate B12 levels (211 to 400 pg/mL) to rule out spurious heterophile antibodies. Performed By: #### C MPN, LDO #### [facility] (DEFAULT) [address] [address] NUC PET HEAD TO THIGHon NUC PET [...] evidence of other tracer avid lesions. Normal [facility] PT Skull base to mid-thighon 07-30-2024 IMPRESSION: [...] the patient was positioned on the [employer].graph mCT TOF< PET/CT-64, [employer] imaging unit. A low resolution non-contrast CT [...] No evidence of other tracer avid lesions. [facility] Radiology Study observation (narrative) [facility] PT Skull base to mid-thighOr dered By: Mack Bailey on 07-30-2024 [facility] Work Phone: Bedside Glucoseon 07-29-2024 FINGERSTICK GLU 367 mg/dL High 74-106 [facility] Comment on above: Result Comment: ESPERANZA VILLALTA OF PATIENT CARE PER NURSING PROTOCOL Performed By: #### L 501.080 ####[facility] [id number] [place], [address] FINGERSTICK GLU 370 mg/dL High 74-106 [facility] [facility] Comment on above: Result Comment: ESPERANZA VILLALTA OF PATIENT CARE PER NURSING PROTOCOL Performed By: #### L 501.080 ####[facility] [address] [place], [address] Colonoscopy Reporton 025 Colonoscopy Report Normal [facility] Glucose measurement at [facility] deOrdered By: Brayan Friend on 07-29-2024 Bedside Glucose ([facility] Panel) 367 mg/dL High 74-106 [facility] Comment on above: MANAGEMENT OF PATIEN T CARE PER NURSING PROTOCOL MR/POSTOP.ANEon 07-29-2024 MR/POSTOP.ANE Normal [facility] MR/DLUZSEXH4hc 07-29-2024 MR/POSTOPAN2 Normal [facility] Surgery Specimen Level Aicha 07-29-2024 Surgery Specimen Level IV Normal [facility] Comment on above: Performed By: #### P SUIV ####[facility] [address] [place], [place], [address] Gastroenterology Visit Repor ton 07-28-2024 Gastroenterology Visit Report Normal [facility] MR/PAT.ANEon 07-28-2024 MR/PAT.ANE Normal [facility] ABD Limited w/ Elastographyo n 07-24-2024 ABD Limited w/ Elastography Normal [facility] GLUCOSE POCon 06-23-2024 Glucose [Mass/Vol] 281 mg/dL High 70 - 99 mg/dL [facility] Interpretation and review of laboratory results Abnormal [facility] POC Sample Type VENO [facility] Test performed at ad dress of the patient encounter. [facility] Miscellaneous Lab Procedureo n 06-23-2024 MISC LAB TEST Normal [facility] Comment on above: Order Comment: SER/R [id number] RDL SER/RF Result Comment: TEST RESULTS LIMITSAutoimmune [...] 80 Strong Positive: >80 [facility] ORIGINAL REPORT ON FILE IN LAB CONTAINS ADDITIONAL TEST SITE INFORMATION. Performed By: #### L 501.2450, L801.1541, L3300.1800, L300.3900, L3410.2350, L501.6710, L801.1543, L500.4050, L3100.5440, L500.4100, L100.0100 ####[facility] [address] [place], [address] SURG PATH REQUESTon 06-23-20 Addendum Normal [facility] Comment on above: Result Comment: This addendum is issued to report on the chromogranin and synaptophysin stains performed on block D1. Neuroendocrine markers chromogranin and synaptophysin show focal linear neuroendocrine cell hyperplasia. All controls show appropriate reactivity. All immunohistochemistry, in situ hybridization, and histochemical tests were developed by and are performed at the [facility] Clinical Laboratory, [address] [place] [address]. All tests reported here, except those addressing [...] PM Performed By: #### S URGP #### [facility] (DEFAULT) [address] [place] [address] Case Report [facility] Comment on above: Result Comment: Surg ica Pathology Report Case: [id number] Authorizing Provider: Blas Merrill MD Collected: 06/23/2024 01:48 PM Ordering Location: [facility] Endoscopy Received: 06/23/2024 04:41 PM Pathologist: Mohit Almanzar MD Specimens: A) - TISSUE BIOPSY, FNA Peripancreatic LN B) - TISSUE, previous EMR site midbody C) - STOMACH, distal stomach polyps x2 D) - STOMACH, gastric cardia polyp Performed By: #### S URGP #### [facility] (DEFAULT) [address] [place] [address] Clinical History Neuroendocrine tumor D3A.8. Medical History: Diabetes mellitus. History of cancer. Gastroesophageal reflux disease. Renal disease. Hyperthyroidism. Cirrhosis of liver. Arthritis. Anxiety. Hyperlipidemia. Obstructive sleep apnea. Liver disease. Normal [facility] Comment on above: Performed By: #### S URGP #### [facility] (DEFAULT) [address] [place] [address] Gross Description [facility] Comment on above: Result Comment: The specimens are received in four properly labeled containers with the patient's name and accession number. A. The specimen is designated FNA peripancreatic LN and consists of two cores of pale perry soft tissue which each measure 0.3 cm in length with a diameter of less than 0.1 cm. The specimen also consists of a 1.1 x 1.1 x 0.2 cm aggregate of dark red clotted blood and possible irregularly-shaped, small, pale perry soft tissue fragments. TE 2 Cassettes: A1, soft tissue cores; A2, soft tissue aggregate B. The specimen is designated previous EMR site mid body and consists of 25 fragments of perry-pink soft tissue, from 0.2 up to 1.0 cm in greatest dimensions. Largest two fragments range from 0.9 x 0.8 x 0.3 cm in greatest dimensions and 1.0 x 0.7 x 0.4 cm in greatest dimensions. These largest two fragments have grossly identifiable possible deep and peripheral mucosal margins which are inked green and blue, respectively. These fragments are trisected and cut sections reveal perry-red, smooth soft tissue. TE 6 Cassettes: B1-B2, sections of larger tissue fragments; B3-B6, smaller tissue fragments C. The specimen is designated distal stomach polyps x2 and consists of five fragments of perry-pink soft tissue, from 0.3 up to 0.8 cm in greatest dimension. Two fragments have possible deep and peripheral margins. These fragments measure 0.7 x 0.6 x 0.5 cm in greatest dimensions and 0.8 x 0.7 x 0.6 cm in greatest dimensions. Possible deep margins are inked green and peripheral margins are inked blue. These larger fragments are trisected and cut sections reveal pale perry-pink, smooth soft tissue. The specimen also consists of a dark red-brown aggregate of clotted blood which measures 0.9 x 0.5 x 0.3 cm in greatest dimensions. TE 2 Cassettes: C1, sections of larger tissue fragments; C2, smaller tissue fragments and clotted blood D. The specimen is designated gastric cardia polyp and consists of one soft perry portion of tissue which is 1.1 x 1.0 x 0.7 cm in greatest dimension. Presumed margin of resection is inked black and the specimen is bisected to reveal perry-red soft, smooth tissue. TE 1 Lab Use Only: JobID [id number] Grosser for this case was: Justice Trejo Performed By: #### S [facility] #### [facility] (DEFAULT) [address] [place] [address] Microscopic Description Normal [facility] Comment on above: Result Comment: A mi croscopic examination was performed. All controls show appropriate reactivity. All immunohistochemistry (IHC), in situ hybridization (ANNA), and histochemical tests were developed by and are performed at the [facility], Histology and IHC Lab, [address] [place] [address], [place] [address]. All Immunofluorescent (IF) tests were developed by and are performed at the [facility], Renal Division, [address] [place] [address]. All tests reported here, except for PD-L1, have not been cleared by or approved by the [place] Food and Drug Administration (FDA). The laboratory is regulated under CLIA as qualified to perform high-complexity testing. The tests are used for clinical purposes. They should not be regarded as investigational or for research. Performed By: #### S URGP #### [facility] (DEFAULT) [address] [place] [address] Pathologic Diagnosis Normal [facility] Comment on above: Result Comment: A. L [...] unremarkable. Performed By: #### S URGP #### [facility] (DEFAULT) [address] [address] Professional Interpretation Performed at: Normal [facility] Comment on above: Result Comment: [facility] For Immediate Release to Patient's MyChart? Yes [address] [address] Performed By: #### S URGP #### [facility] (DEFAULT) [address] [place] [address] UPPER EUSon 06-23-2024 [facility] Gastroenterology Patient Name: Leroy Montejo Procedure Date: 06/23/2024 12:48 PM Date of : 1965 Admit Type: Outpatient Age: 58 Room: EUS Proc Room 02 Gender: Female Note Status: Finalized Attending MD: Blas Merrill MD, [id number] Procedure: Upper EUS Indications: Gastric mucosal mass/polyp found on endoscopy Providers: Blas Merrill MD (Doctor), Bia Aggarwal RN (Nurse), Irvin Acosta RN (Nurse), MEL Iniguez (Anesthesia Staff), Danilo Geiger DO (Anesthesia Staff) Referring MD: Karolina Piedra APRN-CASTING ASSISTANT, DNP (Referring MD) Medicines: Monitored Anesthesia Care [...] verified by the physician, the nurse, the chlorinator and the industrial hygiene technician in the procedure room. Mental Status [...] (Mantis) was successfully placed (MR conditional). 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 There was no bleeding at the end of the procedure. (more content not included)... LAB, [facility] Radiology Study observation (narrative) [facility] Gastric Emptying Studyon Gastric Emptying Study Normal [facility] Endocrinology Visit Reporton 06-08-2024 Endocrinology Visit Report Normal [facility] Fecal Fat, Qualitativeon FATS, NEUTRAL Normal Normal . [facility] Comment on above: Order Comment: Test( s) 172570-Sllk, Neutral; 784445-Jggi, Totalwas developed and its performance characteristicsdetermined by [employer]. It has not been cleared or approvedby the Food and Drug Administration. Result Comment: Norm al (<60 Droplets/HPF) Performed By: #### L 7000.0750, L7000.0300 ####[facility] [address] [place], [place], [address] FATS, TOTAL Normal Normal . [facility] Comment on above: Order Comment: Test( s) 862551-Gykq, Neutral; 561254-Xbaa, Totalwas developed and its performance characteristicsdetermined by [facility]. It has not been cleared or approvedby the Food and Drug Administration. Result Comment: Norm al (<100 Droplets/HPF)Performed at: [address] [id number] Director: Awais Macias PhD, Phone: [phone] Performed By: #### L 7000.0750, L7000.0300 ####[facility] [address] [place], [address] L7000.0750on 06-04-2024 P ELASTASE,FECA > 800 Normal >200 [facility] Comment on above: Result Comment: Resu lt Units: ug Elast./g Severe Pancreatic Insufficiency: <100 Moderate Pancreatic Insufficiency: 100 - 200 Normal: >200Performed at: [address] [id number] Director: Johnny Cruz MD, Phone: [phone] Performed By: #### L 7000.0750, L7000.0300 ####[facility] [address] [place], [place], [id number] Elastase.pancreatic (Stl) [M ass/Mass]Ordered By: Ralph Singh on 06-02-2024 Stool Pancreatic Elastase > 800 >200 [facility] Comment on above: Result Units: ug Zari st./g Severe Pancreatic Insufficiency: <100 Moderate Pancreatic Insufficiency: 100 - 200 Normal: >200Performed at: [address] [id number] Director: Johnny Cruz MD, Phone: [phone] Fat Ql (Stl)Ordered By: Quintin Singh on 06-02-2024 Stool Total Fats Normal . [facility] Comment on above: Normal (<100 Droplet s/HPF)Performed at: - [facility] [id number] Director: Awais Macias PhD, Phone: [phone] No Panel InformationOrdered By: Ralph Singh on 06-02-2024 Stool Neutral Fats Normal . [facility] Comment on above: Normal (<60 Droplets /HPF) Celiac AB,Comprehensiveon ANTIGLIADIN IGA 1 units Normal 0-19 [facility] Comment on above: Order Comment: Blanca c Antibodies tTG IgA/DGP IgG Screen Result Comment: Nega tive 0 - 19 Weak Positive 20 - 30 Moderate to Strong Positive >30 Performed By: #### L 501.2450, L801.1541, L3300.1800, L300.3900, L3410.2350, L501.6710, L801.1543, L500.4050, L3100.5440, L500.4100, L100.0100 ####[facility] [address] [place], [place], [id number] ANTIGLIADIN IGG 3 units Normal 0-19 [facility] Comment on above: Order Comment: Blanca c Antibodies tTG IgA/DGP IgG Screen Result Comment: Nega tive 0 - 19 Weak Positive 20 - 30 Moderate to Strong Positive >30 Performed By: #### L 501.2450, L801.1541, L3300.1800, L300.3900, L3410.2350, L501.6710, L801.1543, L500.4050, L3100.5440, L500.4100, L100.0100 ####[facility] [address] [place], [place], [address] ENDOMYSIAL IGA Negative Normal Negative [facility] Comment on above: Order Comment: Blanca c Antibodies tTG IgA/DGP IgG Screen Performed By: #### L 501.2450, L801.1541, L3300.1800, L300.3900, L3410.2350, L501.6710, L801.1543, L500.4050, L3100.5440, L500.4100, L100.0100 ####[facility] [address] [place], [address] IMMUNOGLOB A QN < 5 Low 87-352 [facility] Comment on above: Order Comment: Blanca c Antibodies tTG IgA/DGP IgG Screen Result Comment: Resu lt confirmed on concentration. Performed By: #### L 501.2450, L801.1541, L3300.1800, L300.3900, L3410.2350, L501.6710, L801.1543, L500.4050, L3100.5440, L500.4100, L100.0100 ####[facility] [address] [place], [address] tTG IGA <2 Normal 0-3 [facility] Comment on above: Order Comment: [...] L3410.2350, L501.6710, L801.1543, L500.4050, L3100.5440, L500.4100, L100.0100 ####[facility] [address] [place], [address] tTG IGG 5 U/mL Normal 0-5 [facility] Comment on above: Order Comment: Blanca c Antibodies tTG IgA/DGP IgG Screen Result Comment: Nega tive 0 - 5 Weak Positive 6 - 9 Positive >9 Performed By: #### L 501.2450, L801.1541, L3300.1800, L300.3900, L3410.2350, L501.6710, L801.1543, L500.4050, L3100.5440, L500.4100, L100.0100 ####[facility] [address] [place], [place], [id number] Gastrin, Serumon 06-01-2024 GASTRIN 740 pg/mL High 0-115 [facility] Comment on above: Order Comment: Blanca c Antibodies tTG IgA/DGP IgG Screen Result Comment: Siem Immulite 2000 Immunochemiluminometric assay (ICMA)Values obtained with different assay methods or kits cannotbe used interchangeably. Results cannot be interpreted asabsolute evidence of the presence or absence of malignantdisease.Performed at: [facility] [address] [id number] Director: Awais Macias PhD, Phone: [phone] at: [facility] [address] [id number] Director: Johnny Cruz MD, Phone: [phone] Performed By: #### L 501.2450, L801.1541, L3300.1800, L300.3900, L3410.2350, L501.6710, L801.1543, L500.4050, L3100.5440, L500.4100, L100.0100 ####[facility] [address] [place], [place], [address] Miscellaneous Lab Procedure 2on 06-01-2024 [facility] LAB TEST 2 Normal [facility] Comment on above: Order Comment: Comme nts: Celiac Antibodies tTG IgA/DGP IgG ScreenSER/[id number] CELIAC ANTIBODY SER/RT Result Comment: TEST RESULTS [...] to Strong Positive >30 [facility]. ORIGINAL REPORT ON FILE IN LAB CONTAINS ADDITIONAL TEST SITE INFORMATION. Performed By: #### L 501.2450, L801.1541, L3300.1800, L300.3900, L3410.2350, L501.6710, L801.1543, L500.4050, L3100.5440, L500.4100, L100.0100 ####[facility] [address] [place], [place], [address] JOSTIN Comprehensive Panelon JOSTIN TABLE Comment Normal . [facility] Comment on above: Result Comment: Auto antibody Disease Association ------- Condition Frequency ---------Antinuclear Antibody, SLE, mixed connectiveDirect (JOSTIN-D) tissue diseases ---------dsDNA SLE 40 - 60% ---------Chromatin Drug induced SLE 90% SLE 48 - 97% ---------SSA (Ro) SLE 25 - 35% Sjogren's Syndrome 40 - 70% Lupus 100% ---------SSB (La) SLE 10% Sjogren's Syndrome 30% ---------Sm (anti-Wheeler) SLE 15 - 30% ---------[employer] Mixed Connective Tissue Disease 95%(U1 nRNP, SLE 30 - 50%anti-ribonucleoprotein) Polymyositis and/or Dermatomyositis 20% ---------Scl-70 (antiDNA Scleroderma (diffuse) 20 - 35%topoisomerase) Crest 13% ---------Cheyenne-1 Polymyositis and/or Dermatomyositis 20 - 40% ---------Centromere B Scleroderma - Crest variant 80%Performed at: [address] [id number] Director: Awais Macias PhD, Phone: [phone] Performed By: #### L 501.2450, L801.1541, L3300.1800, L300.3900, L3410.2350, L501.6710, L801.1543, L500.4050, L3100.5440, L500.4100, L100.0100 ####[facility] [address] [facility] [place], [address] ANTI-CENT B AB <0.2 Normal 0.0-0.9 [facility] Comment on above: Performed By: #### L 501.2450, L801.1541, L3300.1800, L300.3900, L3410.2350, L501.6710, L801.1543, L500.4050, L3100.5440, L500.4100, L100.0100 ####[facility] [address] [facility]. [place], [place], [id number] ANTI-DNA (DS)AB <1 Normal 0-9 [facility] Comment on above: Result Comment: Nega tive <5 Equivocal 5 - 9 Positive >9 Performed By: #### L 501.2450, L801.1541, L3300.1800, L300.3900, L3410.2350, L501.6710, L801.1543, L500.4050, L3100.5440, L500.4100, L100.0100 ####[facility] [address] [place], [address] ANTI-CHEYENNE-1 <0.2 Normal 0.0-0.9 [facility] Comment on above: Performed By: #### L 501.2450, L801.1541, L3300.1800, L300.3900, L3410.2350, L501.6710, L801.1543, L500.4050, L3100.5440, L500.4100, L100.0100 ####[facility] [address] [place], [place], [id number] ANTI-SS-A < 0.2 Normal 0.0-0.9 [facility] Comment on above: Performed By: #### L 501.2450, L801.1541, L3300.1800, L300.3900, L3410.2350, L501.6710, L801.1543, L500.4050, L3100.5440, L500.4100, L100.0100 ####[facility] [address] [place], [address] ANTI-SS-B < 0.2 Normal 0.0-0.9 [facility] Comment on above: Performed By: #### L 501.2450, L801.1541, L3300.1800, L300.3900, L3410.2350, L501.6710, L801.1543, L500.4050, L3100.5440, L500.4100, L100.0100 ####[facility] [address] [place], [address] ANTICHROMATIN <0.2 Normal 0.0-0.9 [facility] Comment on above: Performed By: #### L 501.2450, L801.1541, L3300.1800, L300.3900, L3410.2350, L501.6710, L801.1543, L500.4050, L3100.5440, L500.4100, L100.0100 ####[facility] [address] [place], [address] ANTISCLERODERM <0.2 Normal 0.0-0.9 [facility] Comment on above: Performed By: #### L 501.2450, L801.1541, L3300.1800, L300.3900, L3410.2350, L501.6710, L801.1543, L500.4050, L3100.5440, L500.4100, L100.0100 ####[facility] [address] [place], [place], [address] [employer] Ab 0.2 AI Normal 0.0-0.9 [facility] Comment on above: Performed By: #### L 501.2450, L801.1541, L3300.1800, L300.3900, L3410.2350, L501.6710, L801.1543, L500.4050, L3100.5440, L500.4100, L100.0100 ####[facility] [address] [place], [address] WHEELER Ab <0.2 Normal 0.0-0.9 [facility] Comment on above: Performed By: #### L 501.2450, L801.1541, L3300.1800, L300.3900, L3410.2350, L501.6710, L801.1543, L500.4050, L3100.5440, L500.4100, L100.0100 ####[facility] [address] [place], [address] CBC W/Diff, Automatedon 11-0 Absolute Lymph 2.37 X10 3/uL Normal 0.83-4.51 [facility] Comment on above: Performed By: #### L 501.2450, L801.1541, L3300.1800, L300.3900, L3410.2350, L501.6710, L801.1543, L500.4050, L3100.5440, L500.4100, L100.0100 ####[facility] [address] [place], [address] Absolute Neut 5.6 X10 3/uL Normal 2.0-7.7 [facility] Comment on above: Performed By: #### L 501.2450, L801.1541, L3300.1800, L300.3900, L3410.2350, L501.6710, L801.1543, L500.4050, L3100.5440, L500.4100, L100.0100 ####[facility] [address] [place], [place], [phone] Basophils/100 WBC (Bld) 0.7 % Normal 0-1 [facility] Comment on above: Performed By: #### L 501.2450, L801.1541, L3300.1800, L300.3900, L3410.2350, L501.6710, L801.1543, L500.4050, L3100.5440, L500.4100, L100.0100 ####[facility] [address] [place], [address] Eosinophils/100 WBC (Bld) 2.7 % Normal 0-5 [facility] Comment on above: Performed By: #### L 501.2450, L801.1541, L3300.1800, L300.3900, L3410.2350, L501.6710, L801.1543, L500.4050, L3100.5440, L500.4100, L100.0100 ####[facility] [address] [place], [place], [phone] Erythrocyte distribution width (RBC) [Ratio] 15.5 % High 11.6-14.6 [facility] Comment on above: Performed By: #### L 501.2450, L801.1541, L3300.1800, L300.3900, L3410.2350, L501.6710, L801.1543, L500.4050, L3100.5440, L500.4100, L100.0100 ####[facility] [address] [place], [address] Hematocrit (Bld) [Volume fraction] 37.4 % Normal 37-47 [facility] Comment on above: Performed By: #### L 501.2450, L801.1541, L3300.1800, L300.3900, L3410.2350, L501.6710, L801.1543, L500.4050, L3100.5440, L500.4100, L100.0100 ####[facility] [address] [place], [address]( Hemoglobin (Bld) [Mass/Vol] 11.3 g/dL Low 12.0-15.0 [facility] Comment on above: Performed By: #### L 501.2450, L801.1541, L3300.1800, L300.3900, L3410.2350, L501.6710, L801.1543, L500.4050, L3100.5440, L500.4100, L100.0100 ####[facility] [address] [place], [address] IG% 0.900 Normal 0.0-0.9 [facility] Comment on above: Result Comment: IG% - Immature Granulocytes (promyelocytes, myelocytes andmetamyelocytes) > 1% indicates that a LEFT SHIFT is Present. Performed By: #### L 501.2450, L801.1541, L3300.1800, L300.3900, L3410.2350, L501.6710, L801.1543, L500.4050, L3100.5440, L500.4100, L100.0100 ####[facility] [address] [place], [address] Lymphocytes/100 WBC (Bld) 26.6 % Normal 19-41 [facility] Comment on above: Performed By: #### L 501.2450, L801.1541, L3300.1800, L300.3900, L3410.2350, L501.6710, L801.1543, L500.4050, L3100.5440, L500.4100, L100.0100 ####[facility] [address] [place], [address] MCH (RBC) [Entitic mass] 23.9 pg Low 27.0-32.0 [facility] Comment on above: Performed By: #### L 501.2450, L801.1541, L3300.1800, L300.3900, L3410.2350, L501.6710, L801.1543, L500.4050, L3100.5440, L500.4100, L100.0100 ####[facility] [address] [place], [address] MCHC (RBC) [Mass/Vol] 30.2 g/dL Low 32-36 [facility] Comment on above: Performed By: #### L 501.2450, L801.1541, L3300.1800, L300.3900, L3410.2350, L501.6710, L801.1543, L500.4050, L3100.5440, L500.4100, L100.0100 ####[facility] [address] [place], [place], [phone] MCV (RBC) [Entitic vol] 79.1 fL Low 81-99 [facility] Comment on above: Performed By: #### L 501.2450, L801.1541, L3300.1800, L300.3900, L3410.2350, L501.6710, L801.1543, L500.4050, L3100.5440, L500.4100, L100.0100 ####[facility] [address] [place], [address] Monocytes/100 WBC (Bld) 6.5 % Normal 0-10 [facility] Comment on above: Performed By: #### L 501.2450, L801.1541, L3300.1800, L300.3900, L3410.2350, L501.6710, L801.1543, L500.4050, L3100.5440, L500.4100, L100.0100 ####[facility] [address] [place], [phone]) Neutrophils/100 WBC (Bld) 62.6 % Normal 47-70 [facility] Comment on above: Performed By: #### L 501.2450, L801.1541, L3300.1800, L300.3900, L3410.2350, L501.6710, L801.1543, L500.4050, L3100.5440, L500.4100, L100.0100 ####[facility] [address] [place], [phone]) Nucleated RBC (Bld) [#/Vol] 0 10*3/uL Normal 0-5 [facility] Comment on above: Performed By: #### L 501.2450, L801.1541, L3300.1800, L300.3900, L3410.2350, L501.6710, L801.1543, L500.4050, L3100.5440, L500.4100, L100.0100 ####[facility] [address] [place], [phone]) Platelet mean volume (Bld) [Entitic vol] 9.7 fL Normal 6.2-12.0 [facility] Comment on above: Performed By: #### L 501.2450, L801.1541, L3300.1800, L300.3900, L3410.2350, L501.6710, L801.1543, L500.4050, L3100.5440, L500.4100, L100.0100 ####[facility] [address] [place], [address] Platelets (Bld) [#/Vol] 259 10*3/uL Normal 150-450 [facility] Comment on above: Performed By: #### L 501.2450, L801.1541, L3300.1800, L300.3900, L3410.2350, L501.6710, L801.1543, L500.4050, L3100.5440, L500.4100, L100.0100 ####[facility] [address] [place], [address] RBC (Bld) [#/Vol] 4.73 10*6/uL Normal 4.2-5.4 [facility] Comment on above: Performed By: #### L 501.2450, L801.1541, L3300.1800, L300.3900, L3410.2350, L501.6710, L801.1543, L500.4050, L3100.5440, L500.4100, L100.0100 ####[facility] [address] [place], [place], [phone] RDW SD 44.1 fl High 35.1-43.9 [facility] Comment on above: Performed By: #### L 501.2450, L801.1541, L3300.1800, L300.3900, L3410.2350, L501.6710, L801.1543, L500.4050, L3100.5440, L500.4100, L100.0100 ####[facility] [address] [place], [address] WBC (Bld) [#/Vol] 8.9 10*3/uL Normal 4.4-11.0 [facility] Comment on above: Performed By: #### L 501.2450, L801.1541, L3300.1800, L300.3900, L3410.2350, L501.6710, L801.1543, L500.4050, L3100.5440, L500.4100, L100.0100 ####[facility] [address] [place], [place], [phone] CRPon 05-29-2024 C-REACTIVE PROT 25.90 mg/L High 0.0-3.0 [facility] Comment on above: Order Comment: Blanca c Antibodies tTG IgA/DGP IgG Screen Result Comment: C-Re active Protein (CRP) provides useful information for thediagnosis, therapy and monitoring of inflammatory processesand associated diseases. For the evaluation of Relative Riskfor Cardiovascular Disease, a High Sensitivity CRP (HSCRP)should be ordered. Performed By: #### L 501.2450, L801.1541, L3300.1800, L300.3900, L3410.2350, L501.6710, L801.1543, L500.4050, L3100.5440, L500.4100, L100.0100 ####[facility] [address] [place], [place], [phone] Comprehensive Metabolic Prof ilon 05-29-2024 Albumin [Mass/Vol] 3.6 g/dL Normal 3.2-5.0 [facility] Comment on above: Order Comment: Blanca c Antibodies tTG IgA/DGP IgG Screen Performed By: #### L 501.2450, L801.1541, L3300.1800, L300.3900, L3410.2350, L501.6710, L801.1543, L500.4050, L3100.5440, L500.4100, L100.0100 ####[facility] [address] [place], [place], [phone] Albumin/Globulin [Mass ratio] 0.7 {ratio} Low 0.9-2.4 [facility] Comment on above: Order Comment: Blanca c Antibodies tTG IgA/DGP IgG Screen Performed By: #### L 501.2450, L801.1541, L3300.1800, L300.3900, L3410.2350, L501.6710, L801.1543, L500.4050, L3100.5440, L500.4100, L100.0100 ####[facility] [address] [place], [place], [phone] ALK P 122 U/L High 45-117 [facility] Comment on above: Order Comment: Blanca c Antibodies tTG IgA/DGP IgG Screen Performed By: #### L 501.2450, L801.1541, L3300.1800, L300.3900, L3410.2350, L501.6710, L801.1543, L500.4050, L3100.5440, L500.4100, L100.0100 ####[facility] [address] [place], [place], [phone] ALT [Catalytic activity/Vol] 38 U/L Normal 13-56 [facility] Comment on above: Order Comment: Blanca c Antibodies tTG IgA/DGP IgG Screen Performed By: #### L 501.2450, L801.1541, L3300.1800, L300.3900, L3410.2350, L501.6710, L801.1543, L500.4050, L3100.5440, L500.4100, L100.0100 ####[facility] [address] [place], [place], [phone] AST [Catalytic activity/Vol] 38 U/L High 15-37 [facility] Comment on above: Order Comment: Blanca c Antibodies tTG IgA/DGP IgG Screen Performed By: #### L 501.2450, L801.1541, L3300.1800, L300.3900, L3410.2350, L501.6710, L801.1543, L500.4050, L3100.5440, L500.4100, L100.0100 ####[facility] [address] [place], [place], [phone] Bilirubin [Mass/Vol] 0.70 mg/dL Normal 0.20-1.00 [facility] Comment on above: Order Comment: Blanca c Antibodies tTG IgA/DGP IgG Screen Result Comment: For patients on eltrombopag therapy, use of Dimension [place] TBIL is not recommended. Performed By: #### L 501.2450, L801.1541, L3300.1800, L300.3900, L3410.2350, L501.6710, L801.1543, L500.4050, L3100.5440, L500.4100, L100.0100 ####[facility] [address] [place], [place], [phone]) BUN/CRE 19.1 RATIO Normal 10-20 [facility] Comment on above: Order Comment: Blanca c Antibodies tTG IgA/DGP IgG Screen Performed By: #### L 501.2450, L801.1541, L3300.1800, L300.3900, L3410.2350, L501.6710, L801.1543, L500.4050, L3100.5440, L500.4100, L100.0100 ####[facility] [address] [place], [address] CA,Total 10.0 mg/dL Normal 8.5-10.1 [facility] Comment on above: Order Comment: Blanca c Antibodies tTG IgA/DGP IgG Screen Performed By: #### L 501.2450, L801.1541, L3300.1800, L300.3900, L3410.2350, L501.6710, L801.1543, L500.4050, L3100.5440, L500.4100, L100.0100 ####[facility] [address] [place], [place], [phone]) Chloride [Moles/Vol] 99 mmol/L Normal 98-107 [facility] Comment on above: Order Comment: Blanca c Antibodies tTG IgA/DGP IgG Screen Performed By: #### L 501.2450, L801.1541, L3300.1800, L300.3900, L3410.2350, L501.6710, L801.1543, L500.4050, L3100.5440, L500.4100, L100.0100 ####[facility] [address] [place], [place], [phone]) CO2 [Moles/Vol] 31.0 mmol/L Normal 21.0-32.0 [facility] Comment on above: Order Comment: Blanca c Antibodies tTG IgA/DGP IgG Screen Performed By: #### L 501.2450, L801.1541, L3300.1800, L300.3900, L3410.2350, L501.6710, L801.1543, L500.4050, L3100.5440, L500.4100, L100.0100 ####[facility] [address] [place], [phone] Creatinine [Mass/Vol] 0.89 mg/dL Normal 0.55-1.02 [facility] Comment on above: Order Comment: Blanca c Antibodies tTG IgA/DGP IgG Screen Result Comment: The validity of the calculated GFR GFRAA in patients over70 years has not been determined. Clinical correlation isessential. Performed By: #### L 501.2450, L801.1541, L3300.1800, L300.3900, L3410.2350, L501.6710, L801.1543, L500.4050, L3100.5440, L500.4100, L100.0100 ####[facility] [address] [place], [place], [phone]) EST GFR - AA 84 mL/min Normal >60 [facility] Comment on above: Order Comment: Blanca c Antibodies tTG IgA/DGP IgG Screen Result Comment: Afri can Citizen [place] GFR Calc Performed By: #### L 501.2450, L801.1541, L3300.1800, L300.3900, L3410.2350, L501.6710, L801.1543, L500.4050, L3100.5440, L500.4100, L100.0100 ####[facility] [address] [place], [place], [phone] GAP 4 Low 5-15 [facility] Comment on above: Order Comment: Blanca c Antibodies tTG IgA/DGP IgG Screen Performed By: #### L 501.2450, L801.1541, L3300.1800, L300.3900, L3410.2350, L501.6710, L801.1543, L500.4050, L3100.5440, L500.4100, L100.0100 ####[facility] [address] [place], [address] GFR/1.73 sq M.predicted among non-blacks MDRD (S/P/Bld) [Vol rate/Area] 69 mL/min/{1.73_m2} Normal >60 [facility] Comment on above: Order Comment: Blanca c Antibodies tTG IgA/DGP IgG Screen Result Comment: Non- GFR Calc Performed By: #### L 501.2450, L801.1541, L3300.1800, L300.3900, L3410.2350, L501.6710, L801.1543, L500.4050, L3100.5440, L500.4100, L100.0100 ####[facility] [address] [place], [address] Globulin (S) [Mass/Vol] 5.5 g/dL High 2.2-4.2 [facility] Comment on above: Order Comment: Blanca c Antibodies tTG IgA/DGP IgG Screen Performed By: #### L 501.2450, L801.1541, L3300.1800, L300.3900, L3410.2350, L501.6710, L801.1543, L500.4050, L3100.5440, L500.4100, L100.0100 ####[facility] [address], [address] Glucose [Mass/Vol] 160 mg/dL High 74-106 [facility] Comment on above: Order Comment: Blanca c Antibodies tTG IgA/DGP IgG Screen Result Comment: Fast ing Glucose result greater than or equal to 126 mg/dLsuggests DIABETES MELLITUS per A.D.A. criteria. Performed By: #### L 501.2450, L801.1541, L3300.1800, L300.3900, L3410.2350, L501.6710, L801.1543, L500.4050, L3100.5440, L500.4100, L100.0100 ####[facility] [address] [place], [address] Potassium [Moles/Vol] 4.4 mmol/L Normal 3.5-5.1 [facility] Comment on above: Order Comment: Blanca c Antibodies tTG IgA/DGP IgG Screen Performed By: #### L 501.2450, L801.1541, L3300.1800, L300.3900, L3410.2350, L501.6710, L801.1543, L500.4050, L3100.5440, L500.4100, L100.0100 ####[facility] [address] [place], [address] Sodium [Moles/Vol] 134 mmol/L Low 136-145 [facility] Comment on above: Order Comment: Blanca c Antibodies tTG IgA/DGP IgG Screen Performed By: #### L 501.2450, L801.1541, L3300.1800, L300.3900, L3410.2350, L501.6710, L801.1543, L500.4050, L3100.5440, L500.4100, L100.0100 ####[facility] [address] [place], [phone]) T PROT 9.1 g/dL High 6.4-8.2 [facility] Comment on above: Order Comment: Blanca c Antibodies tTG IgA/DGP IgG Screen Performed By: #### L 501.2450, L801.1541, L3300.1800, L300.3900, L3410.2350, L501.6710, L801.1543, L500.4050, L3100.5440, L500.4100, L100.0100 ####[facility] [address] [place], [address] Urea nitrogen [Mass/Vol] 17 mg/dL Normal 7-18 [facility] Comment on above: Order Comment: Blanca c Antibodies tTG IgA/DGP IgG Screen Performed By: #### L 501.2450, L801.1541, L3300.1800, L300.3900, L3410.2350, L501.6710, L801.1543, L500.4050, L3100.5440, L500.4100, L100.0100 ####[facility] [address] [place], [place], [phone] Gastroenterology Visit Repor ton 05-29-2024 Gastroenterology Visit Report Normal [facility] Lipaseon 05-29-2024 Lipase [Catalytic activity/Vol] 38 U/L Normal 13-75 [facility] Comment on above: Order Comment: Blanca c Antibodies tTG IgA/DGP IgG Screen Result Comment: Ronnie mcleod note:LIPASE revised reference range effective 22.New Lipase methodology. Expected to produce lower valuesthan the previous assay method.NEW Reference Range: 13 - 75 U/L Performed By: #### L 501.2450, L801.1541, L3300.1800, L300.3900, L3410.2350, L501.6710, L801.1543, L500.4050, L3100.5440, L500.4100, L100.0100 ####[facility] [address] [place], [place], [phone] Lipid Profileon 05-29-2024 Cholesterol [Mass/Vol] 183 mg/dL Normal 200 [facility] Comment on above: Order Comment: Blanca c Antibodies tTG IgA/DGP IgG Screen Result Comment: <200 mg/dL Desirable 200-240 mg/dL Borderline >240 mg/dL High Risk Performed By: #### L 501.2450, L801.1541, L3300.1800, L300.3900, L3410.2350, L501.6710, L801.1543, L500.4050, L3100.5440, L500.4100, L100.0100 ####[facility] [address] [place], [place], [phone](789) Cholesterol in HDL [Mass/Vol] 35 mg/dL Low [facility] Comment on above: Order Comment: Blanca c Antibodies tTG IgA/DGP IgG Screen Result Comment: The drugs N-Acetylcysteine and Metamizole may falselydepress this assay. Reference Range HDL <40 mg/dL Low HDL Cholesterol HDL >or= 60 mg/dL High HDL Cholesterol Performed By: #### L 501.2450, L801.1541, L3300.1800, L300.3900, L3410.2350, L501.6710, L801.1543, L500.4050, L3100.5440, L500.4100, L100.0100 ####[facility] [address] [place], [place], [phone](176) Cholesterol in LDL [Mass/Vol] 95 mg/dL Normal 0-130 [facility] Comment on above: Order Comment: Blanca c Antibodies tTG IgA/DGP IgG Screen Performed By: #### L 501.2450, L801.1541, L3300.1800, L300.3900, L3410.2350, L501.6710, L801.1543, L500.4050, L3100.5440, L500.4100, L100.0100 ####[facility] [address] [place], [address] Cholesterol in VLDL [Mass/Vol] 53 mg/dL High 5-40 [facility] Comment on above: Order Comment: Blanca c Antibodies tTG IgA/DGP IgG Screen Performed By: #### L 501.2450, L801.1541, L3300.1800, L300.3900, L3410.2350, L501.6710, L801.1543, L500.4050, L3100.5440, L500.4100, L100.0100 ####[facility] [address], [address] Triglyceride [Mass/Vol] 265 mg/dL High [facility] Comment on above: Order Comment: [...] L3410.2350, L501.6710, L801.1543, L500.4050, L3100.5440, L500.4100, L100.0100 ####[facility] [address], [address] Prothrombin Time w/INRon INR Coag (PPP) [Relative time] 1.2 {INR} Normal [facility] Comment on above: Performed By: #### L 501.2450, L801.1541, L3300.1800, L300.3900, L3410.2350, L501.6710, L801.1543, L500.4050, L3100.5440, L500.4100, L100.0100 ####[facility] [address] [place], [place], [phone] PT Coag (PPP) [Time] 15.1 s High 11.7-14.9 [facility] Comment on above: Performed By: #### L 501.2450, L801.1541, L3300.1800, L300.3900, L3410.2350, L501.6710, L801.1543, L500.4050, L3100.5440, L500.4100, L100.0100 ####[facility] [address] [facility] [place], [address] SURG PATH REQUESTon 05-27-20 Case Report [facility] Comment on above: Result Comment: Surg ical Pathology Report Case: [id number] Authorizing Provider: Karolina Piedra, Collected: 05/27/2024 08:28 AM PAPER BALER-CASTING ASSISTANT, DNP Ordering Location[facility] Received: 05/27/2024 08:29 AM SHORT Pathologist: Mohit Almanzar MD Specimen: SURG PATH, Gastric Mass, Biopsy Performed By: #### P CA #### [facility] (DEFAULT) [address] [place] [address] Clinical History Request received fro semaj Rod MD for second opinion consultation on slides received: Please review outside path; endoscopy 04/04/2024 at [facility]. Interested in margins, and grade, size, etc. Thank you. Pre-Op Diagnosis: upper GI bleed. [facility] Comment on above: Performed By: #### P CA #### [facility] (DEFAULT) [address] [address] Diagnosis Comments All immunohistochemi hammad stains were performed at outside institution and submitted for review. [facility] Comment on above: Performed By: #### P CA #### [facility] (DEFAULT) [address] [address] Gross Description [facility] Comment on above: Result Comment: The following material(s) are received from [facility], [address] [facility], [place], [place] [address], with an identifying surgical pathology report: 7 H&E slide(s) and 16 non-H&E slide(s), labeled [id number]. Outside materials are returned in sixty (60) days under separate cover with our number recorded on them. Grosser for this case was: Rosa White Performed By: #### P CA #### [facility] (DEFAULT) [address] [address] Microscopic Description A microscopic examination was performed. [facility] Comment on above: Performed By: #### P CA #### [facility] (DEFAULT) [address] [address] Pathologic Diagnosis [facility] Comment on above: Result Comment: Outs jina Slides: [id number] (04/04/2024) A. Gastric Mass, Biopsy: Well differentiated [...] CK20. Performed By: #### P CA #### [facility] (DEFAULT) [address] [address] Professional Interpretation Performed at: [facility] Comment on above: Result Comment: [facility] For Immediate Release to Patient's [facility] Yes [address] [place] [address] Performed By: #### P CA #### [facility] (DEFAULT) [address] [address] AFP, Tumor Markeron 10-24-20 24 AFP TUMOR PAPA < 1.8 Normal 0.0-9.2 [facility] Comment on above: Order Comment: Test( s) 577764-Bvkbdk, Serum or Plasmawas developed and its performance characteristicsdetermined by [employer]. It has not been cleared or approvedby the Food and Drug Administration.NNN Result Comment: MarkTend Electrochemiluminescence Immunoassay(ECLIA)Values obtained with different assay methods or kits cannotbe used interchangeably. Results cannot be interpreted asabsolute evidence of the presence or absence of malignantdisease.This test is not interpretable in females. Performed By: #### L 501.9520, L506.0400, L803.2200, L100.0100, L500.4050, L3300.0700, L500.4100, L800.1280, L3410.2400, L501.9985, L3100.1850, L504.2610, L3300.0100, L3400.0700, L300.3900, L3200.1100, L3000.0375, L503.6030, L3890.6005, L501.6710, L3300.1200, L3100.5450, L503.6550, L501.4700, L503.5510, L3130.0010, L506.1000, L3100.3425 ####[facility] [address] [place], [address] ANCAon 05-14-2024 Atypical pANCA <1:20 Normal Neg:<1:20 [facility] Comment on above: Order Comment: Test( s) 489343-Tptsgw, Serum or Plasmawas developed and its performance characteristicsdetermined by [employer]. It has not been cleared or approvedby [...] L3100.5450, L503.6550, L501.4700, L503.5510, L3130.0010, L506.1000, L3100.3425 ####[facility] [address] [place], [place], [phone] Cytoplasmic Ab 1:80 Abnormal Neg:<1:20 [facility] Comment on above: Order Comment: Test( s) 423756-Lxxmlt, Serum or Plasmawas developed and its performance characteristicsdetermined by [employer]. It has not been cleared or approvedby the Food and Drug Administration.NNN Performed By: #### L 501.9520, L506.0400, L803.2200, L100.0100, L500.4050, L3300.0700, L500.4100, L800.1280, L3410.2400, L501.9985, L3100.1850, L504.2610, L3300.0100, L3400.0700, L300.3900, L3200.1100, L3000.0375, L503.6030, L3890.6005, L501.6710, L3300.1200, L3100.5450, L503.6550, L501.4700, L503.5510, L3130.0010, L506.1000, L3100.3425 ####[facility] [address] [facility]. [place], [place], [phone] Perinuclear Ab. <1:20 Normal Neg:<1:20 [facility] Comment on above: Order Comment: Test( s) 801002-Jojckj, Serum or Plasmawas developed and its performance characteristicsdetermined by [employer]. It has not been cleared or approvedby the Food and Drug Administration.NNN Result Comment: The presence of positive fluorescence exhibiting P-ANCA orC-ANCA patterns alone is not specific for the diagnosis ofWegener's Granulomatosis (WG) or microscopic polyangiitis.Decisions about treatment should not be based solely onANCA IFA results. The International ANCA Group Consensusrecommends follow up testing of positive sera with both MT-3 and MPO-ANCA enzyme immunoassays. As many as 5% serumsamples are positive only by EIA. Ref. AM J Clin Clzazu5098;111:507-513. Performed By: #### L 501.9520, L506.0400, L803.2200, L100.0100, L500.4050, L3300.0700, L500.4100, L800.1280, L3410.2400, L501.9985, L3100.1850, L504.2610, L3300.0100, L3400.0700, L300.3900, L3200.1100, L3000.0375, L503.6030, L3890.6005, L501.6710, L3300.1200, L3100.5450, L503.6550, L501.4700, L503.5510, L3130.0010, L506.1000, L3100.3425 ####[facility] [address] [place], [address] Anti-Smooth Muscle ABSon ANTISMOOTH MUSC 24 Units Abnormal 0-19 [facility] Comment on above: Order Comment: Test( s) 781668-Oonxez, Serum or Plasmawas developed and its performance characteristicsdetermined by [employer]. It has not been cleared or approvedby [...] L3100.5450, L503.6550, L501.4700, L503.5510, L3130.0010, L506.1000, L3100.3425 ####[facility] [address] [place], [address] Celiac Disease Profileon ENDOMYSIAL IGA Negative Normal Negative [facility] Comment on above: Order Comment: Test( s) 971901-Xfodpj, Serum or Plasmawas developed and its performance characteristicsdetermined by [employer]. It has not been cleared or approvedby the Food and Drug Administration.NNN Performed By: #### L 501.9520, L506.0400, L803.2200, L100.0100, L500.4050, L3300.0700, L500.4100, L800.1280, L3410.2400, L501.9985, L3100.1850, L504.2610, L3300.0100, L3400.0700, L300.3900, L3200.1100, L3000.0375, L503.6030, L3890.6005, L501.6710, L3300.1200, L3100.5450, L503.6550, L501.4700, L503.5510, L3130.0010, L506.1000, L3100.3425 ####[facility] [address] [place], [place], [phone] tTG IGA <2 Normal 0-3 [facility] Comment on above: Order Comment: Test( s) 170833-Mrbxhw, Serum or Plasmawas developed and its performance characteristicsdetermined by [employer]. It has not been cleared or approvedby [...] L3100.5450, L503.6550, L501.4700, L503.5510, L3130.0010, L506.1000, L3100.3425 ####[facility] [facility] [address] [place], [address] tTG IGG 7 U/mL Abnormal 0-5 [facility] Comment on above: Order Comment: Test( s) 935706-Pdtkzh, Serum or Plasmawas developed and its performance characteristicsdetermined by [facility]. It has not been cleared or approvedby the Food and Drug Administration.NNN Result Comment: Nega tive 0 - 5 Weak Positive 6 - 9 Positive >9 Performed By: #### L 501.9520, L506.0400, L803.2200, L100.0100, L500.4050, L3300.0700, L500.4100, L800.1280, L3410.2400, L501.9985, L3100.1850, L504.2610, L3300.0100, L3400.0700, L300.3900, L3200.1100, L3000.0375, L503.6030, L3890.6005, L501.6710, L3300.1200, L3100.5450, L503.6550, L501.4700, L503.5510, L3130.0010, L506.1000, L3100.3425 ####[facility] [address] [facility] [place], [address] Ceruloplasminon 05-14-2024 CERULOPLASMIN 34.4 mg/dL Normal 19.0-39.0 [facility] Comment on above: Order Comment: Test( s) 168084-Hwaodo, Serum or Plasmawas developed and its performance characteristicsdetermined by [facility]. It has not been cleared or approvedby the Food and Drug Administration.NNN Performed By: #### L 501.9520, L506.0400, L803.2200, L100.0100, L500.4050, L3300.0700, L500.4100, L800.1280, L3410.2400, L501.9985, L3100.1850, L504.2610, L3300.0100, L3400.0700, L300.3900, L3200.1100, L3000.0375, L503.6030, L3890.6005, L501.6710, L3300.1200, L3100.5450, L503.6550, L501.4700, L503.5510, L3130.0010, L506.1000, L3100.3425 ####[facility] [address] [place], [address] Copper, Serum or Plasmaon COPPER, SERUM 130 ug/dL Normal 80-158 [facility] Comment on above: Order Comment: Test( s) 894331-Mmbvno, Serum or Plasmawas developed and its performance characteristicsdetermined by [facility]. It has not been cleared or approvedby the Food and Drug Administration.NNN Result Comment: Dete ction Limit = 5 Performed By: #### L 501.9520, L506.0400, L803.2200, L100.0100, L500.4050, L3300.0700, L500.4100, L800.1280, L3410.2400, L501.9985, L3100.1850, L504.2610, L3300.0100, L3400.0700, L300.3900, L3200.1100, L3000.0375, L503.6030, L3890.6005, L501.6710, L3300.1200, L3100.5450, L503.6550, L501.4700, L503.5510, L3130.0010, L506.1000, L3100.3425 ####[facility] [address] [place], [place], [id number] Haptoglobinon 05-14-2024 HAPTOGLOBIN 182 mg/dL Normal 33-346 [facility] Comment on above: Order Comment: Test( s) 071759-Myyugb, Serum or Plasmawas developed and its performance characteristicsdetermined by [facility]. It has not been cleared or approvedby the Food and Drug Administration.NNN Result Comment: Perf ormed at: [facility] [address] [id number] Director: Awais Macias PhD, Phone: [phone] at: [facility] [address] [id number] Director: Johnny Cruz MD, Phone: [phone] Performed By: #### L 501.9520, L506.0400, L803.2200, L100.0100, L500.4050, L3300.0700, L500.4100, L800.1280, L3410.2400, L501.9985, L3100.1850, L504.2610, L3300.0100, L3400.0700, L300.3900, L3200.1100, L3000.0375, L503.6030, L3890.6005, L501.6710, L3300.1200, L3100.5450, L503.6550, L501.4700, L503.5510, L3130.0010, L506.1000, L3100.3425 ####[facility] [address] [place], [address] Hepatitis Panel Acuteon - COMMENT Comment Normal . [facility] Comment on above: Order Comment: Test( s) 022398-Miecct, Serum or Plasmawas developed and its performance characteristicsdetermined by [facility]. It has not been cleared or approvedby [...] L3100.5450, L503.6550, L501.4700, L503.5510, L3130.0010, L506.1000, L3100.3425 ####[facility] [address] [facility]. [place], [place], [address] HEP B CORE,IgM Negative Normal Negative [facility] Comment on above: Order Comment: Test( s) 820474-Daligc, Serum or Plasmawas developed and its performance characteristicsdetermined by [facility]. It has not been cleared or approvedby the Food and Drug Administration.NNN Performed By: #### L 501.9520, L506.0400, L803.2200, L100.0100, L500.4050, L3300.0700, L500.4100, L800.1280, L3410.2400, L501.9985, L3100.1850, L504.2610, L3300.0100, L3400.0700, L300.3900, L3200.1100, L3000.0375, L503.6030, L3890.6005, L501.6710, L3300.1200, L3100.5450, L503.6550, L501.4700, L503.5510, L3130.0010, L506.1000, L3100.3425 ####[facility] [address] [place], [address] HEP B SURF AG Negative Normal Negative [facility] Comment on above: Order Comment: Test( s) 124517-Jlgxnh, Serum or Plasmawas developed and its performance characteristicsdetermined by [facility]. It has not been cleared or approvedby the Food and Drug Administration.NNN Performed By: #### L 501.9520, L506.0400, L803.2200, L100.0100, L500.4050, L3300.0700, L500.4100, L800.1280, L3410.2400, L501.9985, L3100.1850, L504.2610, L3300.0100, L3400.0700, L300.3900, L3200.1100, L3000.0375, L503.6030, L3890.6005, L501.6710, L3300.1200, L3100.5450, L503.6550, L501.4700, L503.5510, L3130.0010, L506.1000, L3100.3425 ####[facility] [address] [facility] [place], [address] HEP C VIRUS AB Non-Reactive Normal Non Reactive [facility] Comment on above: Order Comment: Test( s) 340889-Ryalub, Serum or Plasmawas developed and its performance characteristicsdetermined by [facility]. It has not been cleared or approvedby the Food and Drug Administration.NNN Performed By: #### L 501.9520, L506.0400, L803.2200, L100.0100, L500.4050, L3300.0700, L500.4100, L800.1280, L3410.2400, L501.9985, L3100.1850, L504.2610, L3300.0100, L3400.0700, L300.3900, L3200.1100, L3000.0375, L503.6030, L3890.6005, L501.6710, L3300.1200, L3100.5450, L503.6550, L501.4700, L503.5510, L3130.0010, L506.1000, L3100.3425 ####[facility] [address] [facility]. [place], [place], [address] HEPATITIS A-IgM Negative Normal Negative [facility] Comment on above: Order Comment: Test( s) 040727-Jsiywf, Serum or Plasmawas developed and its performance characteristicsdetermined by [facility]. It has not been cleared or approvedby the Food and Drug Administration.NNN Result Comment: A ne gative anti-HAV IgM result suggests no recent orcurrent HAV infection. Performed By: #### L 501.9520, L506.0400, L803.2200, L100.0100, L500.4050, L3300.0700, L500.4100, L800.1280, L3410.2400, L501.9985, L3100.1850, L504.2610, L3300.0100, L3400.0700, L300.3900, L3200.1100, L3000.0375, L503.6030, L3890.6005, L501.6710, L3300.1200, L3100.5450, L503.6550, L501.4700, L503.5510, L3130.0010, L506.1000, L3100.3425 ####[facility] [address] [place], [place], [id number] NITIN + Protein Elect, Serumon 05-14-2024 Albumin [Mass/Vol] 3.2 g/dL Normal 2.9-4.4 [facility] Comment on above: Order Comment: Test( s) 953479-Xdsesl, Serum or Plasmawas developed and its performance characteristicsdetermined by [facility]. It has not been cleared or approvedby the Food and Drug Administration.NNN Performed By: #### L 501.9520, L506.0400, L803.2200, L100.0100, L500.4050, L3300.0700, L500.4100, L800.1280, L3410.2400, L501.9985, L3100.1850, L504.2610, L3300.0100, L3400.0700, L300.3900, L3200.1100, L3000.0375, L503.6030, L3890.6005, L501.6710, L3300.1200, L3100.5450, L503.6550, L501.4700, L503.5510, L3130.0010, L506.1000, L3100.3425 ####[facility] [address] [place], [address] Albumin/Globulin [Mass ratio] 0.7 {ratio} Normal 0.7-1.7 [facility] Comment on above: Order Comment: Test( s) 338771-Ubfsnu, Serum or Plasmawas developed and its performance characteristicsdetermined by [facility]. It has not been cleared or approvedby the Food and Drug Administration.NNN Performed By: #### L 501.9520, L506.0400, L803.2200, L100.0100, L500.4050, L3300.0700, L500.4100, L800.1280, L3410.2400, L501.9985, L3100.1850, L504.2610, L3300.0100, L3400.0700, L300.3900, L3200.1100, L3000.0375, L503.6030, L3890.6005, L501.6710, L3300.1200, L3100.5450, L503.6550, L501.4700, L503.5510, L3130.0010, L506.1000, L3100.3425 ####[facility] [address] [facility] [place], [address] WINXE-1-YUVD 0.3 g/dL Normal 0.0-0.4 [facility] Comment on above: Order Comment: Test( s) 798231-Cxivqf, Serum or Plasmawas developed and its performance characteristicsdetermined by [facility]. It has not been cleared or approvedby the Food and Drug Administration.NNN Performed By: #### L 501.9520, L506.0400, L803.2200, L100.0100, L500.4050, L3300.0700, L500.4100, L800.1280, L3410.2400, L501.9985, L3100.1850, L504.2610, L3300.0100, L3400.0700, L300.3900, L3200.1100, L3000.0375, L503.6030, L3890.6005, L501.6710, L3300.1200, L3100.5450, L503.6550, L501.4700, L503.5510, L3130.0010, L506.1000, L3100.3425 ####[facility] [address] [facility] [place], [address] ERZSE-5-YJCR 0.9 g/dL Normal 0.4-1.0 [facility] Comment on above: Order Comment: Test( s) 996519-Bguwcr, Serum or Plasmawas developed and its performance characteristicsdetermined by [employer]. It has not been cleared or approvedby the Food and Drug Administration.NNN Performed By: #### L 501.9520, L506.0400, L803.2200, L100.0100, L500.4050, L3300.0700, L500.4100, L800.1280, L3410.2400, L501.9985, L3100.1850, L504.2610, L3300.0100, L3400.0700, L300.3900, L3200.1100, L3000.0375, L503.6030, L3890.6005, L501.6710, L3300.1200, L3100.5450, L503.6550, L501.4700, L503.5510, L3130.0010, L506.1000, L3100.3425 ####[facility] [address] [facility] [place], [address] BETA GLOBULIN 1.0 g/dL Normal 0.7-1.3 [facility] Comment on above: Order Comment: Test( s) 364813-Vlrdur, Serum or Plasmawas developed and its performance characteristicsdetermined by [facility]. It has not been cleared or approvedby the Food and Drug Administration.NNN Performed By: #### L 501.9520, L506.0400, L803.2200, L100.0100, L500.4050, L3300.0700, L500.4100, L800.1280, L3410.2400, L501.9985, L3100.1850, L504.2610, L3300.0100, L3400.0700, L300.3900, L3200.1100, L3000.0375, L503.6030, L3890.6005, L501.6710, L3300.1200, L3100.5450, L503.6550, L501.4700, L503.5510, L3130.0010, L506.1000, L3100.3425 ####[facility] [address] [facility] [place], [address] GAMMA GLOBULIN 2.7 g/dL High 0.4-1.8 [facility] Comment on above: Order Comment: Test( s) 232226-Heuwfj, Serum or Plasmawas developed and its performance characteristicsdetermined by [facility]. It has not been cleared or approvedby the Food and Drug Administration.NNN Performed By: #### L 501.9520, L506.0400, L803.2200, L100.0100, L500.4050, L3300.0700, L500.4100, L800.1280, L3410.2400, L501.9985, L3100.1850, L504.2610, L3300.0100, L3400.0700, L300.3900, L3200.1100, L3000.0375, L503.6030, L3890.6005, L501.6710, L3300.1200, L3100.5450, L503.6550, L501.4700, L503.5510, L3130.0010, L506.1000, L3100.3425 ####[facility] [address] [place], [address] Globulin (S) [Mass/Vol] 4.9 g/dL Abnormal 2.2-3.9 [facility] Comment on above: Order Comment: Test( s) 475823-Wmrbch, Serum or Plasmawas developed and its performance characteristicsdetermined by [employer]. It has not been cleared or approvedby the Food and Drug Administration.NNN Performed By: #### L 501.9520, L506.0400, L803.2200, L100.0100, L500.4050, L3300.0700, L500.4100, L800.1280, L3410.2400, L501.9985, L3100.1850, L504.2610, L3300.0100, L3400.0700, L300.3900, L3200.1100, L3000.0375, L503.6030, L3890.6005, L501.6710, L3300.1200, L3100.5450, L503.6550, L501.4700, L503.5510, L3130.0010, L506.1000, L3100.3425 ####[facility] [address] [place], [address] NITIN RESULT,S Comment Normal . [facility] Comment on above: Order Comment: Test( s) 929631-Ikzzpx, Serum or Plasmawas developed and its performance characteristicsdetermined by [facility]. It has not been cleared or approvedby the Food and Drug Administration.NNN Result Comment: No m onoclonality detected. Performed By: #### L 501.9520, L506.0400, L803.2200, L100.0100, L500.4050, L3300.0700, L500.4100, L800.1280, L3410.2400, L501.9985, L3100.1850, L504.2610, L3300.0100, L3400.0700, L300.3900, L3200.1100, L3000.0375, L503.6030, L3890.6005, L501.6710, L3300.1200, L3100.5450, L503.6550, L501.4700, L503.5510, L3130.0010, L506.1000, L3100.3425 ####[facility] [address] [place], [place], [id number] IMMUNOGLOB A QN < 5 Low 87-352 [facility] Comment on above: Order Comment: Test( s) 737282-Evkrse, Serum or Plasmawas developed and its performance characteristicsdetermined by [employer]. It has not been cleared or approvedby the Food and Drug Administration.NNN Result Comment: Resu lt confirmed on concentration. Performed By: #### L 501.9520, L506.0400, L803.2200, L100.0100, L500.4050, L3300.0700, L500.4100, L800.1280, L3410.2400, L501.9985, L3100.1850, L504.2610, L3300.0100, L3400.0700, L300.3900, L3200.1100, L3000.0375, L503.6030, L3890.6005, L501.6710, L3300.1200, L3100.5450, L503.6550, L501.4700, L503.5510, L3130.0010, L506.1000, L3100.3425 ####[facility] [address] [place], [place], [address] IMMUNOGLOB G QN 2914 mg/dL High 586-1602 [facility] Comment on above: Order Comment: Test( s) 327378-Upmttr, Serum or Plasmawas developed and its performance characteristicsdetermined by [employer]. It has not been cleared or approvedby the Food and Drug Administration.NNN Performed By: #### L 501.9520, L506.0400, L803.2200, L100.0100, L500.4050, L3300.0700, L500.4100, L800.1280, L3410.2400, L501.9985, L3100.1850, L504.2610, L3300.0100, L3400.0700, L300.3900, L3200.1100, L3000.0375, L503.6030, L3890.6005, L501.6710, L3300.1200, L3100.5450, L503.6550, L501.4700, L503.5510, L3130.0010, L506.1000, L3100.3425 ####[facility] [address] [facility] [address] [place], [place], [address] IMMUNOGLOB M QN 180 mg/dL Normal 26-217 [facility] Comment on above: Order Comment: Test( s) 536815-Mxvuyo, Serum or Plasmawas developed and its performance characteristicsdetermined by [employer]. It has not been cleared or approvedby the Food and Drug Administration.NNN Performed By: #### L 501.9520, L506.0400, L803.2200, L100.0100, L500.4050, L3300.0700, L500.4100, L800.1280, L3410.2400, L501.9985, L3100.1850, L504.2610, L3300.0100, L3400.0700, L300.3900, L3200.1100, L3000.0375, L503.6030, L3890.6005, L501.6710, L3300.1200, L3100.5450, L503.6550, L501.4700, L503.5510, L3130.0010, L506.1000, L3100.3425 ####[facility] [address] [facility]. [place], [place], [address] M-Shadi Not Observed Normal Not Observed [facility] Comment on above: Order Comment: Test( s) 267801-Wdcymu, Serum or Plasmawas developed and its performance characteristicsdetermined by [employer]. It has not been cleared or approvedby the Food and Drug Administration.NNN Performed By: #### L 501.9520, L506.0400, L803.2200, L100.0100, L500.4050, L3300.0700, L500.4100, L800.1280, L3410.2400, L501.9985, L3100.1850, L504.2610, L3300.0100, L3400.0700, L300.3900, L3200.1100, L3000.0375, L503.6030, L3890.6005, L501.6710, L3300.1200, L3100.5450, L503.6550, L501.4700, L503.5510, L3130.0010, L506.1000, L3100.3425 ####[facility] [address] [place], [place], [id number] NOTE: Comment Normal . [facility] Comment on above: Order Comment: Test( s) 756210-Whaaju, Serum or Plasmawas developed and its performance characteristicsdetermined by [facility]. It has not been cleared or approvedby the Food and Drug Administration.NNN Result Comment: Prot ein electrophoresis scan will follow via computer,mail, or analytics manager delivery. Performed By: #### L 501.9520, L506.0400, L803.2200, L100.0100, L500.4050, L3300.0700, L500.4100, L800.1280, L3410.2400, L501.9985, L3100.1850, L504.2610, L3300.0100, L3400.0700, L300.3900, L3200.1100, L3000.0375, L503.6030, L3890.6005, L501.6710, L3300.1200, L3100.5450, L503.6550, L501.4700, L503.5510, L3130.0010, L506.1000, L3100.3425 ####[facility] [address] [place], [address] Protein [Mass/Vol] 8.1 g/dL Normal 6.0-8.5 [facility] Comment on above: Order Comment: Test( s) 754217-Lfburc, Serum or Plasmawas developed and its performance characteristicsdetermined by [employer]. It has not been cleared or approvedby the Food and Drug Administration.NNN Performed By: #### L 501.9520, L506.0400, L803.2200, L100.0100, L500.4050, L3300.0700, L500.4100, L800.1280, L3410.2400, L501.9985, L3100.1850, L504.2610, L3300.0100, L3400.0700, L300.3900, L3200.1100, L3000.0375, L503.6030, L3890.6005, L501.6710, L3300.1200, L3100.5450, L503.6550, L501.4700, L503.5510, L3130.0010, L506.1000, L3100.3425 ####[facility] [address] [place], [place], [id number] Immunoglobulins G/A/M/Logan IMMUNOGLOB E QN 4 IU/mL Low 6-495 [facility] Comment on above: Order Comment: Test( s) 642217-Srdkyb, Serum or Plasmawas developed and its performance characteristicsdetermined by [employer]. It has not been cleared or approvedby the Food and Drug Administration.NNN Performed By: #### L 501.9520, L506.0400, L803.2200, L100.0100, L500.4050, L3300.0700, L500.4100, L800.1280, L3410.2400, L501.9985, L3100.1850, L504.2610, L3300.0100, L3400.0700, L300.3900, L3200.1100, L3000.0375, L503.6030, L3890.6005, L501.6710, L3300.1200, L3100.5450, L503.6550, L501.4700, L503.5510, L3130.0010, L506.1000, L3100.3425 ####[facility] [address] [place], [place], [id number] Siletz Lambda Light Chainson 05-14-2024 FR KAPPA LT CHN 98.4 mg/L Abnormal 3.3-19.4 [facility] Comment on above: Order Comment: Test( s) 269722-Wpknjz, Serum or Plasmawas developed and its performance characteristicsdetermined by [employer]. It has not been cleared or approvedby the Food and Drug Administration.NNN Performed By: #### L 501.9520, L506.0400, L803.2200, L100.0100, L500.4050, L3300.0700, L500.4100, L800.1280, L3410.2400, L501.9985, L3100.1850, L504.2610, L3300.0100, L3400.0700, L300.3900, L3200.1100, L3000.0375, L503.6030, L3890.6005, L501.6710, L3300.1200, L3100.5450, L503.6550, L501.4700, L503.5510, L3130.0010, L506.1000, L3100.3425 ####[facility] [address] [place], [place], [address] FR LAMBDA LT CH 61.7 mg/L Abnormal 5.7-26.3 [facility] Comment on above: Order Comment: Test( s) 566488-Zhugpg, Serum or Plasmawas developed and its performance characteristicsdetermined by [employer]. It has not been cleared or approvedby the Food and Drug Administration.NNN Performed By: #### L 501.9520, L506.0400, L803.2200, L100.0100, L500.4050, L3300.0700, L500.4100, L800.1280, L3410.2400, L501.9985, L3100.1850, L504.2610, L3300.0100, L3400.0700, L300.3900, L3200.1100, L3000.0375, L503.6030, L3890.6005, L501.6710, L3300.1200, L3100.5450, L503.6550, L501.4700, L503.5510, L3130.0010, L506.1000, L3100.3425 ####[facility] [address] [place], [place], [id number] KAPPA/LAMBDA % 1.59 Normal 0.26-1.65 [facility] Comment on above: Order Comment: Test( s) 035100-Mnhwqz, Serum or Plasmawas developed and its performance characteristicsdetermined by [employer]. It has not been cleared or approvedby the Food and Drug Administration.NNN Performed By: #### L 501.9520, L506.0400, L803.2200, L100.0100, L500.4050, L3300.0700, L500.4100, L800.1280, L3410.2400, L501.9985, L3100.1850, L504.2610, L3300.0100, L3400.0700, L300.3900, L3200.1100, L3000.0375, L503.6030, L3890.6005, L501.6710, L3300.1200, L3100.5450, L503.6550, L501.4700, L503.5510, L3130.0010, L506.1000, L3100.3425 ####[facility] [address] [place], [place], [id number] Gastroenterology Visit Repor ton 05-12-2024 Gastroenterology Visit Report Normal [facility] .GFRon 05-11-2024 GFR Non- 61 ml/min/1.73sqm Normal [facility] Comment on above: Result Comment: GFR [...] MP, ADIFF, CBC, PBNP, GFR, ANEU #### [address] [place], [place] [address] GFR 73 ml/min/1.73sqm Normal [facility] Comment on above: Result Comment: GFR [...] MP, ADIFF, CBC, PBNP, GFR, ANEU #### [address] [place], [place] [address] JOSTIN w/ Reflex Mult Confirmon 05-11-2024 JOSTIN TABLE TNP Normal [facility] Comment on above: Performed By: #### L 501.9520, L506.0400, L803.2200, L100.0100, L500.4050, L3300.0700, L500.4100, L800.1280, L3410.2400, L501.9985, L3100.1850, L504.2610, L3300.0100, L3400.0700, L300.3900, L3200.1100, L3000.0375, L503.6030, L3890.6005, L501.6710, L3300.1200, L3100.5450, L503.6550, L501.4700, L503.5510, L3130.0010, L506.1000, L3100.3425 ####[facility] [address] [place], [place], [address] ANTI-CENT B AB TNP Normal [facility] Comment on above: Performed By: #### L 501.9520, L506.0400, L803.2200, L100.0100, L500.4050, L3300.0700, L500.4100, L800.1280, L3410.2400, L501.9985, L3100.1850, L504.2610, L3300.0100, L3400.0700, L300.3900, L3200.1100, L3000.0375, L503.6030, L3890.6005, L501.6710, L3300.1200, L3100.5450, L503.6550, L501.4700, L503.5510, L3130.0010, L506.1000, L3100.3425 ####[facility] [address] [place], [place], [id number] ANTI-CHEYENNE-1 TNP Normal [facility] Comment on above: Performed By: #### L 501.9520, L506.0400, L803.2200, L100.0100, L500.4050, L3300.0700, L500.4100, L800.1280, L3410.2400, L501.9985, L3100.1850, L504.2610, L3300.0100, L3400.0700, L300.3900, L3200.1100, L3000.0375, L503.6030, L3890.6005, L501.6710, L3300.1200, L3100.5450, L503.6550, L501.4700, L503.5510, L3130.0010, L506.1000, L3100.3425 ####[facility] [address] [place], [place], [id number] ANTISCLERODERM TNP Normal [facility] Comment on above: Performed By: #### L 501.9520, L506.0400, L803.2200, L100.0100, L500.4050, L3300.0700, L500.4100, L800.1280, L3410.2400, L501.9985, L3100.1850, L504.2610, L3300.0100, L3400.0700, L300.3900, L3200.1100, L3000.0375, L503.6030, L3890.6005, L501.6710, L3300.1200, L3100.5450, L503.6550, L501.4700, L503.5510, L3130.0010, L506.1000, L3100.3425 ####[facility] [address] [facility] [place], [place], [id number] [facility] Comment on above: Performed By: #### L 501.9520, L506.0400, L803.2200, L100.0100, L500.4050, L3300.0700, L500.4100, L800.1280, L3410.2400, L501.9985, L3100.1850, L504.2610, L3300.0100, L3400.0700, L300.3900, L3200.1100, L3000.0375, L503.6030, L3890.6005, L501.6710, L3300.1200, L3100.5450, L503.6550, L501.4700, L503.5510, L3130.0010, L506.1000, L3100.3425 ####[facility] [address] [facility] [place], [place], [id number] [facility] Comment on above: Performed By: #### L 501.9520, L506.0400, L803.2200, L100.0100, L500.4050, L3300.0700, L500.4100, L800.1280, L3410.2400, L501.9985, L3100.1850, L504.2610, L3300.0100, L3400.0700, L300.3900, L3200.1100, L3000.0375, L503.6030, L3890.6005, L501.6710, L3300.1200, L3100.5450, L503.6550, L501.4700, L503.5510, L3130.0010, L506.1000, L3100.3425 ####[facility] [address] [facility]. [place], [place], [id number] ANTI-DNA (DS)AB TNP Normal [facility] Comment on above: Performed By: #### L 501.9520, L506.0400, L803.2200, L100.0100, L500.4050, L3300.0700, L500.4100, L800.1280, L3410.2400, L501.9985, L3100.1850, L504.2610, L3300.0100, L3400.0700, L300.3900, L3200.1100, L3000.0375, L503.6030, L3890.6005, L501.6710, L3300.1200, L3100.5450, L503.6550, L501.4700, L503.5510, L3130.0010, L506.1000, L3100.3425 ####[facility] [address] [facility], [address] ANTI-SS-A TNP Normal [facility] Comment on above: Performed By: #### L 501.9520, L506.0400, L803.2200, L100.0100, L500.4050, L3300.0700, L500.4100, L800.1280, L3410.2400, L501.9985, L3100.1850, L504.2610, L3300.0100, L3400.0700, L300.3900, L3200.1100, L3000.0375, L503.6030, L3890.6005, L501.6710, L3300.1200, L3100.5450, L503.6550, L501.4700, L503.5510, L3130.0010, L506.1000, L3100.3425 ####[facility] [address] [facility]. [place], [place], [address] ANTI-SS-B TNP Normal [facility] Comment on above: Performed By: #### L 501.9520, L506.0400, L803.2200, L100.0100, L500.4050, L3300.0700, L500.4100, L800.1280, L3410.2400, L501.9985, L3100.1850, L504.2610, L3300.0100, L3400.0700, L300.3900, L3200.1100, L3000.0375, L503.6030, L3890.6005, L501.6710, L3300.1200, L3100.5450, L503.6550, L501.4700, L503.5510, L3130.0010, L506.1000, L3100.3425 ####[facility] [address] [place], [place], [id number] ANTICHROMATIN TNP Normal [facility] Comment on above: Performed By: #### L 501.9520, L506.0400, L803.2200, L100.0100, L500.4050, L3300.0700, L500.4100, L800.1280, L3410.2400, L501.9985, L3100.1850, L504.2610, L3300.0100, L3400.0700, L300.3900, L3200.1100, L3000.0375, L503.6030, L3890.6005, L501.6710, L3300.1200, L3100.5450, L503.6550, L501.4700, L503.5510, L3130.0010, L506.1000, L3100.3425 ####[facility] [address] [place], [address] Anti-Mitochondrial ABon 04-22 ANTIMITOCHON AB <20.0 Normal 0.0-20.0 [facility] Comment on above: Result Comment: Nega tive 0.0 - 20.0 Equivocal 20.1 - 24.9 Positive >24.9Mitochondrial (M2) Antibodies are found in 90-96% ofpatients with primary biliary cirrhosis. Performed By: #### L 501.9520, L506.0400, L803.2200, L100.0100, L500.4050, L3300.0700, L500.4100, L800.1280, L3410.2400, L501.9985, L3100.1850, L504.2610, L3300.0100, L3400.0700, L300.3900, L3200.1100, L3000.0375, L503.6030, L3890.6005, L501.6710, L3300.1200, L3100.5450, L503.6550, L501.4700, L503.5510, L3130.0010, L506.1000, L3100.3425 ####[facility] [address] [place], [place], [address] CMPon 05-11-2024 Albumin Level 3.5 G/dL Normal 3.5-5.[address] [facility] Comment on above: Performed By: #### C MP, ADIFF, CBC, PBNP, GFR, ANEU #### [address] [address] Albumin/Globulin [Mass ratio] 0.7 {ratio} Low 1.1-2.[address] [facility] Comment on above: Performed By: #### C MP, ADIFF, CBC, PBNP, GFR, ANEU #### [address] [place], [place] [address] ALP [Catalytic activity/Vol] 180 U/L High 40-[address] [facility] Comment on above: Performed By: #### C MP, ADIFF, CBC, PBNP, GFR, ANEU #### [address] [address] ALT [Catalytic activity/Vol] 34 U/L Normal 14-[address] [facility] Comment on above: Performed By: #### C MP, ADIFF, CBC, PBNP, GFR, ANEU #### [address] [address] AST [Catalytic activity/Vol] 36 U/L Normal 10-[address] [facility] Comment on above: Performed By: #### C MP, ADIFF, CBC, PBNP, GFR, ANEU #### [address] [address] Bili Total 0.5 mg/dL Normal 0.2-1.[address] [facility] Comment on above: Result Comment: Use of this assay is not recommended for patients undergoing treatment with eltrombopag due to the potential for falsely elevated results. Performed By: #### C MP, ADIFF, CBC, PBNP, GFR, ANEU #### [address] [address] BUN/Creatinine Ratio 17 ratio Normal 7-27 [facility] Comment on above: Performed By: #### C MP, ADIFF, CBC, PBNP, GFR, ANEU #### [address] [address] Calcium [Mass/Vol] 9.4 mg/dL Normal 8.4-10.2 [facility] Comment on above: Performed By: #### C MP, ADIFF, CBC, PBNP, GFR, ANEU #### [address] [address] Chloride [Moles/Vol] 96 mmol/L Low 98-107 [facility] Comment on above: Performed By: #### C MP, ADIFF, CBC, PBNP, GFR, ANEU #### [address] [address] CO2 [Moles/Vol] 34 mmol/L High 22-[address] [facility] Comment on above: Performed By: #### C MP, ADIFF, CBC, PBNP, GFR, ANEU #### [address] [address] Creatinine [Mass/Vol] 0.95 mg/dL Normal 0.55-1.02 [facility] Comment on above: Result Comment: Test ing performed on Siemens Dimension EXL analyzer using a modified kinetic Avila technique. Performed By: #### C MP, ADIFF, CBC, PBNP, GFR, ANEU #### [address] [address] Electrolyte Balance 6.0 mEq/L Normal 4.0-15.0 [facility] Comment on above: Performed By: #### C MP, ADIFF, CBC, PBNP, GFR, ANEU #### [address] [address] Globulin 5.2 G/dL Normal [facility] Comment on above: Performed By: #### C MP, ADIFF, CBC, PBNP, GFR, ANEU #### [address] [address] Glucose [Mass/Vol] 157 mg/dL High 70-105 [facility] Comment on above: Performed By: #### C MP, ADIFF, CBC, PBNP, GFR, ANEU #### [address] [address] Potassium [Moles/Vol] 4.8 mmol/L Normal 3.5-5.1 [facility] Comment on above: Performed By: #### C MP, ADIFF, CBC, PBNP, GFR, ANEU #### [address] [address] Sodium [Moles/Vol] 136 mmol/L Normal 136-145 [facility] Comment on above: Performed By: #### C MP, ADIFF, CBC, PBNP, GFR, ANEU #### [address] [address] Total Protein 8.7 G/dL High 6.4-8.[address] [facility] Comment on above: Performed By: #### C MP, ADIFF, CBC, PBNP, GFR, ANEU #### [address] [place], [place] [address] Urea nitrogen [Mass/Vol] 16 mg/dL Normal 7-[address] [facility] Comment on above: Performed By: #### C MP, ADIFF, CBC, PBNP, GFR, ANEU #### [address] [place], [place] [address] HIV - WCHon 05-11-2024 HIV Non-Reactive Normal Nonreactive [facility] Comment on above: Performed By: #### L 501.9520, L506.0400, L803.2200, L100.0100, L500.4050, L3300.0700, L500.4100, L800.1280, L3410.2400, L501.9985, L3100.1850, L504.2610, L3300.0100, L3400.0700, L300.3900, L3200.1100, L3000.0375, L503.6030, L3890.6005, L501.6710, L3300.1200, L3100.5450, L503.6550, L501.4700, L503.5510, L3130.0010, L506.1000, L3100.3425 ####[facility] [address] [place], [address] LABORATORYOrdered By: SYSTEM SYSTEM on 05-11-2024 Albumin [...] 05-11-2024 Cholesterol [Mass/Vol] 191 mg/dL Normal 0-[address] [facility] Comment on above: Result Comment: Chol esterol Reference Interval: Less than 200 Desirable 200-239 Borderline high risk 240 and above High risk Performed By: #### C MP, ADIFF, CBC, PBNP, GFR, ANEU #### [address] [place], [place] [address] Cholesterol in HDL [Mass/Vol] 38 mg/dL Low 40-[address] [facility] Comment on above: Performed By: #### C MP, ADIFF, CBC, PBNP, GFR, ANEU #### [address] [place], [place] [address] Cholesterol in LDL [Mass/Vol] 91 mg/dL Normal 0-[address] [facility] Comment on above: Performed By: #### C MP, ADIFF, CBC, PBNP, GFR, ANEU #### [address] [place], [place] [address] Triglyceride [Mass/Vol] 311 mg/dL High 0-[address] [facility] Comment on above: Result Comment: Trig lyceride Reference Interval: Less than 150 Normal 150-199 Borderline high risk 200-499 High risk 500 or higher Very high risk Performed By: #### C MP, ADIFF, CBC, PBNP, GFR, ANEU #### [address] [place], [place] [address] Vitamin D,25 Hydroxyon 05-11 Vitamin D 25-OH 11.2 ng/mL Normal [facility] Comment on above: Result Comment: [...] L3100.5450, L503.6550, L501.4700, L503.5510, L3130.0010, L506.1000, L3100.3425 ####[facility] [address] [place], [place], [address] Ammoniaon 05-09-2024 Ammonia (P) [Moles/Vol] 23.0 umol/L Normal 11-32 [facility] Comment on above: Performed By: #### L 501.9520, L506.0400, L803.2200, L100.0100, L500.4050, L3300.0700, L500.4100, L800.1280, L3410.2400, L501.9985, L3100.1850, L504.2610, L3300.0100, L3400.0700, L300.3900, L3200.1100, L3000.0375, L503.6030, L3890.6005, L501.6710, L3300.1200, L3100.5450, L503.6550, L501.4700, L503.5510, L3130.0010, L506.1000, L3100.3425 ####[facility] [address] [facility] [place], [place], [id number] Bilirubin, Directon 05-09-20 24 Bilirubin.direct [Mass/Vol] 0.10 mg/dL Normal 0.00-0.30 [facility] Comment on above: Order Comment: N1 Performed By: #### L 501.9520, L506.0400, L803.2200, L100.0100, L500.4050, L3300.0700, L500.4100, L800.1280, L3410.2400, L501.9985, L3100.1850, L504.2610, L3300.0100, L3400.0700, L300.3900, L3200.1100, L3000.0375, L503.6030, L3890.6005, L501.6710, L3300.1200, L3100.5450, L503.6550, L501.4700, L503.5510, L3130.0010, L506.1000, L3100.3425 ####[facility] [address] [facility] [place], [address] CBC W/Diff, Automatedon 10-1 Absolute Lymph 2.80 X10 3/uL Normal 0.83-4.51 [facility] Comment on above: Performed By: #### L 501.9520, L506.0400, L803.2200, L100.0100, L500.4050, L3300.0700, L500.4100, L800.1280, L3410.2400, L501.9985, L3100.1850, L504.2610, L3300.0100, L3400.0700, L300.3900, L3200.1100, L3000.0375, L503.6030, L3890.6005, L501.6710, L3300.1200, L3100.5450, L503.6550, L501.4700, L503.5510, L3130.0010, L506.1000, L3100.3425 ####[facility] [address] [place], [address] Absolute Neut 5.4 X10 3/uL Normal 2.0-7.7 [facility] Comment on above: Performed By: #### L 501.9520, L506.0400, L803.2200, L100.0100, L500.4050, L3300.0700, L500.4100, L800.1280, L3410.2400, L501.9985, L3100.1850, L504.2610, L3300.0100, L3400.0700, L300.3900, L3200.1100, L3000.0375, L503.6030, L3890.6005, L501.6710, L3300.1200, L3100.5450, L503.6550, L501.4700, L503.5510, L3130.0010, L506.1000, L3100.3425 ####[facility] [address] [place], [address] Basophils/100 WBC (Bld) 0.9 % Normal 0-1 [facility] Comment on above: Performed By: #### L 501.9520, L506.0400, L803.2200, L100.0100, L500.4050, L3300.0700, L500.4100, L800.1280, L3410.2400, L501.9985, L3100.1850, L504.2610, L3300.0100, L3400.0700, L300.3900, L3200.1100, L3000.0375, L503.6030, L3890.6005, L501.6710, L3300.1200, L3100.5450, L503.6550, L501.4700, L503.5510, L3130.0010, L506.1000, L3100.3425 ####[facility] [address] [place], [address] Eosinophils/100 WBC (Bld) 3.3 % Normal 0-5 [facility] Comment on above: Performed By: #### L 501.9520, L506.0400, L803.2200, L100.0100, L500.4050, L3300.0700, L500.4100, L800.1280, L3410.2400, L501.9985, L3100.1850, L504.2610, L3300.0100, L3400.0700, L300.3900, L3200.1100, L3000.0375, L503.6030, L3890.6005, L501.6710, L3300.1200, L3100.5450, L503.6550, L501.4700, L503.5510, L3130.0010, L506.1000, L3100.3425 ####[facility] [address] [place], [address] Erythrocyte distribution width (RBC) [Ratio] 15.3 % High 11.6-14.6 [facility] Comment on above: Performed By: #### L 501.9520, L506.0400, L803.2200, L100.0100, L500.4050, L3300.0700, L500.4100, L800.1280, L3410.2400, L501.9985, L3100.1850, L504.2610, L3300.0100, L3400.0700, L300.3900, L3200.1100, L3000.0375, L503.6030, L3890.6005, L501.6710, L3300.1200, L3100.5450, L503.6550, L501.4700, L503.5510, L3130.0010, L506.1000, L3100.3425 ####[facility] [address] [facility]. [place], [place], [address] Hematocrit (Bld) [Volume fraction] 37.6 % Normal 37-47 [facility] Comment on above: Performed By: #### L 501.9520, L506.0400, L803.2200, L100.0100, L500.4050, L3300.0700, L500.4100, L800.1280, L3410.2400, L501.9985, L3100.1850, L504.2610, L3300.0100, L3400.0700, L300.3900, L3200.1100, L3000.0375, L503.6030, L3890.6005, L501.6710, L3300.1200, L3100.5450, L503.6550, L501.4700, L503.5510, L3130.0010, L506.1000, L3100.3425 ####[facility] [address] [facility] [place], [place], [id number] Hemoglobin (Bld) [Mass/Vol] 11.2 g/dL Low 12.0-15.0 [facility] Comment on above: Performed By: #### L 501.9520, L506.0400, L803.2200, L100.0100, L500.4050, L3300.0700, L500.4100, L800.1280, L3410.2400, L501.9985, L3100.1850, L504.2610, L3300.0100, L3400.0700, L300.3900, L3200.1100, L3000.0375, L503.6030, L3890.6005, L501.6710, L3300.1200, L3100.5450, L503.6550, L501.4700, L503.5510, L3130.0010, L506.1000, L3100.3425 ####[facility] [address] [facility]. [place], [place], [id number]) IG% 1.200 High 0.0-0.9 [facility] Comment on above: Result Comment: IG% - Immature Granulocytes (promyelocytes, myelocytes andmetamyelocytes) > 1% indicates that a LEFT SHIFT is Present. Performed By: #### L 501.9520, L506.0400, L803.2200, L100.0100, L500.4050, L3300.0700, L500.4100, L800.1280, L3410.2400, L501.9985, L3100.1850, L504.2610, L3300.0100, L3400.0700, L300.3900, L3200.1100, L3000.0375, L503.6030, L3890.6005, L501.6710, L3300.1200, L3100.5450, L503.6550, L501.4700, L503.5510, L3130.0010, L506.1000, L3100.3425 ####[facility] [address] [facility]. [place], [place], [address] Lymphocytes/100 WBC (Bld) 30.9 % Normal 19-41 [facility] Comment on above: Performed By: #### L 501.9520, L506.0400, L803.2200, L100.0100, L500.4050, L3300.0700, L500.4100, L800.1280, L3410.2400, L501.9985, L3100.1850, L504.2610, L3300.0100, L3400.0700, L300.3900, L3200.1100, L3000.0375, L503.6030, L3890.6005, L501.6710, L3300.1200, L3100.5450, L503.6550, L501.4700, L503.5510, L3130.0010, L506.1000, L3100.3425 ####[facility] [address] [facility]. [place], [place], [address] MCH (RBC) [Entitic mass] 24.8 pg Low 27.0-32.0 [facility] Comment on above: Performed By: #### L 501.9520, L506.0400, L803.2200, L100.0100, L500.4050, L3300.0700, L500.4100, L800.1280, L3410.2400, L501.9985, L3100.1850, L504.2610, L3300.0100, L3400.0700, L300.3900, L3200.1100, L3000.0375, L503.6030, L3890.6005, L501.6710, L3300.1200, L3100.5450, L503.6550, L501.4700, L503.5510, L3130.0010, L506.1000, L3100.3425 ####[facility] [address] [facility] [place], [address] MCHC (RBC) [Mass/Vol] 29.8 g/dL Low 32-36 [facility] Comment on above: Performed By: #### L 501.9520, L506.0400, L803.2200, L100.0100, L500.4050, L3300.0700, L500.4100, L800.1280, L3410.2400, L501.9985, L3100.1850, L504.2610, L3300.0100, L3400.0700, L300.3900, L3200.1100, L3000.0375, L503.6030, L3890.6005, L501.6710, L3300.1200, L3100.5450, L503.6550, L501.4700, L503.5510, L3130.0010, L506.1000, L3100.3425 ####[facility] [address] [place], [address] MCV (RBC) [Entitic vol] 83.2 fL Normal 81-99 [facility] Comment on above: Performed By: #### L 501.9520, L506.0400, L803.2200, L100.0100, L500.4050, L3300.0700, L500.4100, L800.1280, L3410.2400, L501.9985, L3100.1850, L504.2610, L3300.0100, L3400.0700, L300.3900, L3200.1100, L3000.0375, L503.6030, L3890.6005, L501.6710, L3300.1200, L3100.5450, L503.6550, L501.4700, L503.5510, L3130.0010, L506.1000, L3100.3425 ####[facility] [address] [facility], [address] Monocytes/100 WBC (Bld) 4.4 % Normal 0-10 [facility] Comment on above: Performed By: #### L 501.9520, L506.0400, L803.2200, L100.0100, L500.4050, L3300.0700, L500.4100, L800.1280, L3410.2400, L501.9985, L3100.1850, L504.2610, L3300.0100, L3400.0700, L300.3900, L3200.1100, L3000.0375, L503.6030, L3890.6005, L501.6710, L3300.1200, L3100.5450, L503.6550, L501.4700, L503.5510, L3130.0010, L506.1000, L3100.3425 ####[facility] [address] [facility]. [place], [place], [address] Neutrophils/100 WBC (Bld) 59.3 % Normal 47-70 [facility] Comment on above: Performed By: #### L 501.9520, L506.0400, L803.2200, L100.0100, L500.4050, L3300.0700, L500.4100, L800.1280, L3410.2400, L501.9985, L3100.1850, L504.2610, L3300.0100, L3400.0700, L300.3900, L3200.1100, L3000.0375, L503.6030, L3890.6005, L501.6710, L3300.1200, L3100.5450, L503.6550, L501.4700, L503.5510, L3130.0010, L506.1000, L3100.3425 ####[facility] [address] [facility]. [place], [place], [address] Nucleated RBC (Bld) [#/Vol] 0 10*3/uL Normal 0-5 [facility] Comment on above: Performed By: #### L 501.9520, L506.0400, L803.2200, L100.0100, L500.4050, L3300.0700, L500.4100, L800.1280, L3410.2400, L501.9985, L3100.1850, L504.2610, L3300.0100, L3400.0700, L300.3900, L3200.1100, L3000.0375, L503.6030, L3890.6005, L501.6710, L3300.1200, L3100.5450, L503.6550, L501.4700, L503.5510, L3130.0010, L506.1000, L3100.3425 ####[facility] [address] [facility] [place], [address] Platelet mean volume (Bld) [Entitic vol] 10.2 fL Normal 6.2-12.0 [facility] Comment on above: Performed By: #### L 501.9520, L506.0400, L803.2200, L100.0100, L500.4050, L3300.0700, L500.4100, L800.1280, L3410.2400, L501.9985, L3100.1850, L504.2610, L3300.0100, L3400.0700, L300.3900, L3200.1100, L3000.0375, L503.6030, L3890.6005, L501.6710, L3300.1200, L3100.5450, L503.6550, L501.4700, L503.5510, L3130.0010, L506.1000, L3100.3425 ####[facility] [address] [facility] [place], [place], [address](142) Platelets (Bld) [#/Vol] 271 10*3/uL Normal 150-450 [facility] Comment on above: Performed By: #### L 501.9520, L506.0400, L803.2200, L100.0100, L500.4050, L3300.0700, L500.4100, L800.1280, L3410.2400, L501.9985, L3100.1850, L504.2610, L3300.0100, L3400.0700, L300.3900, L3200.1100, L3000.0375, L503.6030, L3890.6005, L501.6710, L3300.1200, L3100.5450, L503.6550, L501.4700, L503.5510, L3130.0010, L506.1000, L3100.3425 ####[facility] [address] [facility] [place], [place], [id number]) RBC (Bld) [#/Vol] 4.52 10*6/uL Normal 4.2-5.4 [facility] Comment on above: Performed By: #### L 501.9520, L506.0400, L803.2200, L100.0100, L500.4050, L3300.0700, L500.4100, L800.1280, L3410.2400, L501.9985, L3100.1850, L504.2610, L3300.0100, L3400.0700, L300.3900, L3200.1100, L3000.0375, L503.6030, L3890.6005, L501.6710, L3300.1200, L3100.5450, L503.6550, L501.4700, L503.5510, L3130.0010, L506.1000, L3100.3425 ####[facility] [address] [facility] [place], [address] RDW SD 46.5 fl High 35.1-43.9 [facility] Comment on above: Performed By: #### L 501.9520, L506.0400, L803.2200, L100.0100, L500.4050, L3300.0700, L500.4100, L800.1280, L3410.2400, L501.9985, L3100.1850, L504.2610, L3300.0100, L3400.0700, L300.3900, L3200.1100, L3000.0375, L503.6030, L3890.6005, L501.6710, L3300.1200, L3100.5450, L503.6550, L501.4700, L503.5510, L3130.0010, L506.1000, L3100.3425 ####[facility] [address] [facility]. [place], [place], [id number] WBC (Bld) [#/Vol] 9.1 10*3/uL Normal 4.4-11.0 [facility] Comment on above: Performed By: #### L 501.9520, L506.0400, L803.2200, L100.0100, L500.4050, L3300.0700, L500.4100, L800.1280, L3410.2400, L501.9985, L3100.1850, L504.2610, L3300.0100, L3400.0700, L300.3900, L3200.1100, L3000.0375, L503.6030, L3890.6005, L501.6710, L3300.1200, L3100.5450, L503.6550, L501.4700, L503.5510, L3130.0010, L506.1000, L3100.3425 ####[facility] [address] [place], [place], [id number] CRPon 05-09-2024 C-REACTIVE PROT 10.20 mg/L High 0.0-3.0 [facility] Comment on above: Order Comment: [...] L3100.5450, L503.6550, L501.4700, L503.5510, L3130.0010, L506.1000, L3100.3425 ####[facility] [address] [place], [address] Comprehensive Metabolic Prof ilon 05-09-2024 Albumin [Mass/Vol] 3.1 g/dL Low 3.2-5.0 [facility] Comment on above: Order Comment: N1 Performed By: #### L 501.9520, L506.0400, L803.2200, L100.0100, L500.4050, L3300.0700, L500.4100, L800.1280, L3410.2400, L501.9985, L3100.1850, L504.2610, L3300.0100, L3400.0700, L300.3900, L3200.1100, L3000.0375, L503.6030, L3890.6005, L501.6710, L3300.1200, L3100.5450, L503.6550, L501.4700, L503.5510, L3130.0010, L506.1000, L3100.3425 ####[facility] [address] [place], [address] Albumin/Globulin [Mass ratio] 0.6 {ratio} Low 0.9-2.4 [facility] Comment on above: Order Comment: N1 Performed By: #### L 501.9520, L506.0400, L803.2200, L100.0100, L500.4050, L3300.0700, L500.4100, L800.1280, L3410.2400, L501.9985, L3100.1850, L504.2610, L3300.0100, L3400.0700, L300.3900, L3200.1100, L3000.0375, L503.6030, L3890.6005, L501.6710, L3300.1200, L3100.5450, L503.6550, L501.4700, L503.5510, L3130.0010, L506.1000, L3100.3425 ####[facility] [address] [place], [address] ALK P 154 U/L High 45-117 [facility] Comment on above: Order Comment: N1 Performed By: #### L 501.9520, L506.0400, L803.2200, L100.0100, L500.4050, L3300.0700, L500.4100, L800.1280, L3410.2400, L501.9985, L3100.1850, L504.2610, L3300.0100, L3400.0700, L300.3900, L3200.1100, L3000.0375, L503.6030, L3890.6005, L501.6710, L3300.1200, L3100.5450, L503.6550, L501.4700, L503.5510, L3130.0010, L506.1000, L3100.3425 ####[facility] [address] [facility]. [place], [place], [id number] ALT [Catalytic activity/Vol] 36 U/L Normal 13-56 [facility] Comment on above: Order Comment: N1 Performed By: #### L 501.9520, L506.0400, L803.2200, L100.0100, L500.4050, L3300.0700, L500.4100, L800.1280, L3410.2400, L501.9985, L3100.1850, L504.2610, L3300.0100, L3400.0700, L300.3900, L3200.1100, L3000.0375, L503.6030, L3890.6005, L501.6710, L3300.1200, L3100.5450, L503.6550, L501.4700, L503.5510, L3130.0010, L506.1000, L3100.3425 ####[facility] [address] [facility]. [place], [place], [id number] AST [Catalytic activity/Vol] 41 U/L High 15-37 [facility] Comment on above: Order Comment: N1 Performed By: #### L 501.9520, L506.0400, L803.2200, L100.0100, L500.4050, L3300.0700, L500.4100, L800.1280, L3410.2400, L501.9985, L3100.1850, L504.2610, L3300.0100, L3400.0700, L300.3900, L3200.1100, L3000.0375, L503.6030, L3890.6005, L501.6710, L3300.1200, L3100.5450, L503.6550, L501.4700, L503.5510, L3130.0010, L506.1000, L3100.3425 ####[facility] [address] [facility] [place], [address] Bilirubin [Mass/Vol] 0.40 mg/dL Normal 0.20-1.00 [facility] Comment on above: Order Comment: N1 Result Comment: For patients on eltrombopag therapy, use of Dimension [place] TBIL is not recommended. Performed By: #### L 501.9520, L506.0400, L803.2200, L100.0100, L500.4050, L3300.0700, L500.4100, L800.1280, L3410.2400, L501.9985, L3100.1850, L504.2610, L3300.0100, L3400.0700, L300.3900, L3200.1100, L3000.0375, L503.6030, L3890.6005, L501.6710, L3300.1200, L3100.5450, L503.6550, L501.4700, L503.5510, L3130.0010, L506.1000, L3100.3425 ####[facility] [address] [facility] [place], [address] BUN/CRE 25.7 RATIO High 10-20 [facility] Comment on above: Order Comment: N1 Performed By: #### L 501.9520, L506.0400, L803.2200, L100.0100, L500.4050, L3300.0700, L500.4100, L800.1280, L3410.2400, L501.9985, L3100.1850, L504.2610, L3300.0100, L3400.0700, L300.3900, L3200.1100, L3000.0375, L503.6030, L3890.6005, L501.6710, L3300.1200, L3100.5450, L503.6550, L501.4700, L503.5510, L3130.0010, L506.1000, L3100.3425 ####[facility] [address] [facility]. [place], [place], [phone] CA,Total 9.8 mg/dL Normal 8.5-10.1 [facility] Comment on above: Order Comment: N1 Performed By: #### L 501.9520, L506.0400, L803.2200, L100.0100, L500.4050, L3300.0700, L500.4100, L800.1280, L3410.2400, L501.9985, L3100.1850, L504.2610, L3300.0100, L3400.0700, L300.3900, L3200.1100, L3000.0375, L503.6030, L3890.6005, L501.6710, L3300.1200, L3100.5450, L503.6550, L501.4700, L503.5510, L3130.0010, L506.1000, L3100.3425 ####[facility] [address] [facility]. [place], [place], [phone] Chloride [Moles/Vol] 100 mmol/L Normal 98-107 [facility] Comment on above: Order Comment: N1 Performed By: #### L 501.9520, L506.0400, L803.2200, L100.0100, L500.4050, L3300.0700, L500.4100, L800.1280, L3410.2400, L501.9985, L3100.1850, L504.2610, L3300.0100, L3400.0700, L300.3900, L3200.1100, L3000.0375, L503.6030, L3890.6005, L501.6710, L3300.1200, L3100.5450, L503.6550, L501.4700, L503.5510, L3130.0010, L506.1000, L3100.3425 ####[facility] [address] [facility]. [place], [place], [phone] CO2 [Moles/Vol] 30.0 mmol/L Normal 21.0-32.0 [facility] Comment on above: Order Comment: N1 Performed By: #### L 501.9520, L506.0400, L803.2200, L100.0100, L500.4050, L3300.0700, L500.4100, L800.1280, L3410.2400, L501.9985, L3100.1850, L504.2610, L3300.0100, L3400.0700, L300.3900, L3200.1100, L3000.0375, L503.6030, L3890.6005, L501.6710, L3300.1200, L3100.5450, L503.6550, L501.4700, L503.5510, L3130.0010, L506.1000, L3100.3425 ####[facility] [address] [facility]. [place], [place], [id number] Creatinine [Mass/Vol] 0.86 mg/dL Normal 0.55-1.02 [facility] Comment on above: Order Comment: N1 Result Comment: The validity of the calculated GFR GFRAA in patients over70 years has not been determined. Clinical correlation isessential. Performed By: #### L 501.9520, L506.0400, L803.2200, L100.0100, L500.4050, L3300.0700, L500.4100, L800.1280, L3410.2400, L501.9985, L3100.1850, L504.2610, L3300.0100, L3400.0700, L300.3900, L3200.1100, L3000.0375, L503.6030, L3890.6005, L501.6710, L3300.1200, L3100.5450, L503.6550, L501.4700, L503.5510, L3130.0010, L506.1000, L3100.3425 ####[facility] [address] [facility] [place], [place], [id number] EST GFR - AA 88 mL/min Normal >60 [facility] Comment on above: Order Comment: N1 Result Comment: Afri can Citizen [place] GFR Calc Performed By: #### L 501.9520, L506.0400, L803.2200, L100.0100, L500.4050, L3300.0700, L500.4100, L800.1280, L3410.2400, L501.9985, L3100.1850, L504.2610, L3300.0100, L3400.0700, L300.3900, L3200.1100, L3000.0375, L503.6030, L3890.6005, L501.6710, L3300.1200, L3100.5450, L503.6550, L501.4700, L503.5510, L3130.0010, L506.1000, L3100.3425 ####[facility] [address] [facility]. [place], [place], [address] GAP 5 Normal 5-15 [facility] Comment on above: Order Comment: N1 Performed By: #### L 501.9520, L506.0400, L803.2200, L100.0100, L500.4050, L3300.0700, L500.4100, L800.1280, L3410.2400, L501.9985, L3100.1850, L504.2610, L3300.0100, L3400.0700, L300.3900, L3200.1100, L3000.0375, L503.6030, L3890.6005, L501.6710, L3300.1200, L3100.5450, L503.6550, L501.4700, L503.5510, L3130.0010, L506.1000, L3100.3425 ####[facility] [address] [place], [address] GFR/1.73 sq M.predicted among non-blacks MDRD (S/P/Bld) [Vol rate/Area] 73 mL/min/{1.73_m2} Normal >60 [facility] Comment on above: Order Comment: N1 Result Comment: Non- GFR Calc Performed By: #### L 501.9520, L506.0400, L803.2200, L100.0100, L500.4050, L3300.0700, L500.4100, L800.1280, L3410.2400, L501.9985, L3100.1850, L504.2610, L3300.0100, L3400.0700, L300.3900, L3200.1100, L3000.0375, L503.6030, L3890.6005, L501.6710, L3300.1200, L3100.5450, L503.6550, L501.4700, L503.5510, L3130.0010, L506.1000, L3100.3425 ####[facility] [address] [place], [address] Globulin (S) [Mass/Vol] 5.6 g/dL High 2.2-4.2 [facility] Comment on above: Order Comment: N1 Performed By: #### L 501.9520, L506.0400, L803.2200, L100.0100, L500.4050, L3300.0700, L500.4100, L800.1280, L3410.2400, L501.9985, L3100.1850, L504.2610, L3300.0100, L3400.0700, L300.3900, L3200.1100, L3000.0375, L503.6030, L3890.6005, L501.6710, L3300.1200, L3100.5450, L503.6550, L501.4700, L503.5510, L3130.0010, L506.1000, L3100.3425 ####[facility] [address] [place], [place], [phone] Glucose [Mass/Vol] 239 mg/dL High 74-106 [facility] Comment on above: Order Comment: N1 Result Comment: Gluc ose result greater than or equal to 200 mg/dLsuggests DIABETES MELLITUS per A.D.A. criteria. Performed By: #### L 501.9520, L506.0400, L803.2200, L100.0100, L500.4050, L3300.0700, L500.4100, L800.1280, L3410.2400, L501.9985, L3100.1850, L504.2610, L3300.0100, L3400.0700, L300.3900, L3200.1100, L3000.0375, L503.6030, L3890.6005, L501.6710, L3300.1200, L3100.5450, L503.6550, L501.4700, L503.5510, L3130.0010, L506.1000, L3100.3425 ####[facility] [address] [place], [place], [phone] Potassium [Moles/Vol] 4.5 mmol/L Normal 3.5-5.1 [facility] Comment on above: Order Comment: N1 Performed By: #### L 501.9520, L506.0400, L803.2200, L100.0100, L500.4050, L3300.0700, L500.4100, L800.1280, L3410.2400, L501.9985, L3100.1850, L504.2610, L3300.0100, L3400.0700, L300.3900, L3200.1100, L3000.0375, L503.6030, L3890.6005, L501.6710, L3300.1200, L3100.5450, L503.6550, L501.4700, L503.5510, L3130.0010, L506.1000, L3100.3425 ####[facility] [address] [place], [place], [phone] Sodium [Moles/Vol] 135 mmol/L Low 136-145 [facility] Comment on above: Order Comment: N1 Performed By: #### L 501.9520, L506.0400, L803.2200, L100.0100, L500.4050, L3300.0700, L500.4100, L800.1280, L3410.2400, L501.9985, L3100.1850, L504.2610, L3300.0100, L3400.0700, L300.3900, L3200.1100, L3000.0375, L503.6030, L3890.6005, L501.6710, L3300.1200, L3100.5450, L503.6550, L501.4700, L503.5510, L3130.0010, L506.1000, L3100.3425 ####[facility] [address] [facility]. [place], [place], [address] T PROT 8.7 g/dL High 6.4-8.2 [facility] Comment on above: Order Comment: N1 Performed By: #### L 501.9520, L506.0400, L803.2200, L100.0100, L500.4050, L3300.0700, L500.4100, L800.1280, L3410.2400, L501.9985, L3100.1850, L504.2610, L3300.0100, L3400.0700, L300.3900, L3200.1100, L3000.0375, L503.6030, L3890.6005, L501.6710, L3300.1200, L3100.5450, L503.6550, L501.4700, L503.5510, L3130.0010, L506.1000, L3100.3425 ####[facility] [address] [place], [place], [phone] Urea nitrogen [Mass/Vol] 22 mg/dL High 7-18 [facility] Comment on above: Order Comment: N1 Performed By: #### L 501.9520, L506.0400, L803.2200, L100.0100, L500.4050, L3300.0700, L500.4100, L800.1280, L3410.2400, L501.9985, L3100.1850, L504.2610, L3300.0100, L3400.0700, L300.3900, L3200.1100, L3000.0375, L503.6030, L3890.6005, L501.6710, L3300.1200, L3100.5450, L503.6550, L501.4700, L503.5510, L3130.0010, L506.1000, L3100.3425 ####[facility] [address] [facility] [address] [place], [place], [phone] Ferritinon 05-09-2024 Ferritin [Mass/Vol] 42 ng/mL Normal 8-252 [facility] Comment on above: Order Comment: N1 Performed By: #### L 501.9520, L506.0400, L803.2200, L100.0100, L500.4050, L3300.0700, L500.4100, L800.1280, L3410.2400, L501.9985, L3100.1850, L504.2610, L3300.0100, L3400.0700, L300.3900, L3200.1100, L3000.0375, L503.6030, L3890.6005, L501.6710, L3300.1200, L3100.5450, L503.6550, L501.4700, L503.5510, L3130.0010, L506.1000, L3100.3425 ####[facility] [address] [place], [place], [phone] Hemoglobin A1con 05-09-2024 HbA1c (Bld) [Mass fraction] 7.2 % High 3.8-5.6 [facility] Comment on above: Result Comment: Norm al < 5.7 % Prediabetic 5.7 - 6.4 % Diabetic >or= 6.5 % Please note range changes. Performed By: #### L 501.9520, L506.0400, L803.2200, L100.0100, L500.4050, L3300.0700, L500.4100, L800.1280, L3410.2400, L501.9985, L3100.1850, L504.2610, L3300.0100, L3400.0700, L300.3900, L3200.1100, L3000.0375, L503.6030, L3890.6005, L501.6710, L3300.1200, L3100.5450, L503.6550, L501.4700, L503.5510, L3130.0010, L506.1000, L3100.3425 ####[facility] [address] [place], [place], [phone] Iron+Iron Binding Capacityon 05-09-2024 Iron [Mass/Vol] 40 ug/dL Low 50-170 [facility] Comment on above: Order Comment: N1 Performed By: #### L 501.9520, L506.0400, L803.2200, L100.0100, L500.4050, L3300.0700, L500.4100, L800.1280, L3410.2400, L501.9985, L3100.1850, L504.2610, L3300.0100, L3400.0700, L300.3900, L3200.1100, L3000.0375, L503.6030, L3890.6005, L501.6710, L3300.1200, L3100.5450, L503.6550, L501.4700, L503.5510, L3130.0010, L506.1000, L3100.3425 ####[facility] [address] [place], [place], [phone] IRON SATURATION 11.6 Low 15.0-55.0 [facility] Comment on above: Order Comment: N1 Performed By: #### L 501.9520, L506.0400, L803.2200, L100.0100, L500.4050, L3300.0700, L500.4100, L800.1280, L3410.2400, L501.9985, L3100.1850, L504.2610, L3300.0100, L3400.0700, L300.3900, L3200.1100, L3000.0375, L503.6030, L3890.6005, L501.6710, L3300.1200, L3100.5450, L503.6550, L501.4700, L503.5510, L3130.0010, L506.1000, L3100.3425 ####[facility] [address]new[address] [facility] [address]. [place], [place], [phone] TIBC 346 ug/dL Normal 250-450 [facility] Comment on above: Order Comment: N1 Performed By: #### L 501.9520, L506.0400, L803.2200, L100.0100, L500.4050, L3300.0700, L500.4100, L800.1280, L3410.2400, L501.9985, L3100.1850, L504.2610, L3300.0100, L3400.0700, L300.3900, L3200.1100, L3000.0375, L503.6030, L3890.6005, L501.6710, L3300.1200, L3100.5450, L503.6550, L501.4700, L503.5510, L3130.0010, L506.1000, L3100.3425 ####[facility] [address]. [place], [place], [address] LDHon 05-09-2024 LDH 167 U/L Normal 84-246 [facility] Comment on above: Order Comment: N1 Performed By: #### L 501.9520, L506.0400, L803.2200, L100.0100, L500.4050, L3300.0700, L500.4100, L800.1280, L3410.2400, L501.9985, L3100.1850, L504.2610, L3300.0100, L3400.0700, L300.3900, L3200.1100, L3000.0375, L503.6030, L3890.6005, L501.6710, L3300.1200, L3100.5450, L503.6550, L501.4700, L503.5510, L3130.0010, L506.1000, L3100.3425 ####[facility] [address] [facility] [place], [place], [address] Lipid Profileon 05-09-2024 Cholesterol [Mass/Vol] 181 mg/dL Normal 200 [facility] Comment on above: Order Comment: N1 Result Comment: <200 mg/dL Desirable 200-240 mg/dL Borderline >240 mg/dL High Risk Performed By: #### L 501.9520, L506.0400, L803.2200, L100.0100, L500.4050, L3300.0700, L500.4100, L800.1280, L3410.2400, L501.9985, L3100.1850, L504.2610, L3300.0100, L3400.0700, L300.3900, L3200.1100, L3000.0375, L503.6030, L3890.6005, L501.6710, L3300.1200, L3100.5450, L503.6550, L501.4700, L503.5510, L3130.0010, L506.1000, L3100.3425 ####[facility] [address] [place], [address] Cholesterol in HDL [Mass/Vol] 30 mg/dL Low [facility] Comment on above: Order Comment: [...] L3100.5450, L503.6550, L501.4700, L503.5510, L3130.0010, L506.1000, L3100.3425 ####[facility] [address] [place], [address] LDL TNP Normal 0-130 [facility] Comment on above: Order Comment: N1 Performed By: #### L 501.9520, L506.0400, L803.2200, L100.0100, L500.4050, L3300.0700, L500.4100, L800.1280, L3410.2400, L501.9985, L3100.1850, L504.2610, L3300.0100, L3400.0700, L300.3900, L3200.1100, L3000.0375, L503.6030, L3890.6005, L501.6710, L3300.1200, L3100.5450, L503.6550, L501.4700, L503.5510, L3130.0010, L506.1000, L3100.3425 ####[facility] [address] [place], [address] Triglyceride [Mass/Vol] 526 mg/dL High [facility] Comment on above: Order Comment: [...] L3100.5450, L503.6550, L501.4700, L503.5510, L3130.0010, L506.1000, L3100.3425 ####[facility] [address] [place], [place], [address] VLDL TNP Normal 5-40 [facility] Comment on above: Order Comment: N1 Performed By: #### L 501.9520, L506.0400, L803.2200, L100.0100, L500.4050, L3300.0700, L500.4100, L800.1280, L3410.2400, L501.9985, L3100.1850, L504.2610, L3300.0100, L3400.0700, L300.3900, L3200.1100, L3000.0375, L503.6030, L3890.6005, L501.6710, L3300.1200, L3100.5450, L503.6550, L501.4700, L503.5510, L3130.0010, L506.1000, L3100.3425 ####[facility] [address] [place], [place], [phone] Prothrombin Time w/INRon INR Coag (PPP) [Relative time] 1.0 {INR} Normal [facility] Comment on above: Performed By: #### L 501.9520, L506.0400, L803.2200, L100.0100, L500.4050, L3300.0700, L500.4100, L800.1280, L3410.2400, L501.9985, L3100.1850, L504.2610, L3300.0100, L3400.0700, L300.3900, L3200.1100, L3000.0375, L503.6030, L3890.6005, L501.6710, L3300.1200, L3100.5450, L503.6550, L501.4700, L503.5510, L3130.0010, L506.1000, L3100.3425 ####[facility] [address] [place], [place], [phone] PT Coag (PPP) [Time] 13.4 s Normal 11.7-14.9 [facility] Comment on above: Performed By: #### L 501.9520, L506.0400, L803.2200, L100.0100, L500.4050, L3300.0700, L500.4100, L800.1280, L3410.2400, L501.9985, L3100.1850, L504.2610, L3300.0100, L3400.0700, L300.3900, L3200.1100, L3000.0375, L503.6030, L3890.6005, L501.6710, L3300.1200, L3100.5450, L503.6550, L501.4700, L503.5510, L3130.0010, L506.1000, L3100.3425 ####[facility] [address] [place], [place], [id number] T4 Free Directon 05-09-2024 T4 FREE DIRECT 0.78 ng/dL Normal 0.76-1.46 [facility] Comment on above: Order Comment: N1 Performed By: #### L 501.9520, L506.0400, L803.2200, L100.0100, L500.4050, L3300.0700, L500.4100, L800.1280, L3410.2400, L501.9985, L3100.1850, L504.2610, L3300.0100, L3400.0700, L300.3900, L3200.1100, L3000.0375, L503.6030, L3890.6005, L501.6710, L3300.1200, L3100.5450, L503.6550, L501.4700, L503.5510, L3130.0010, L506.1000, L3100.3425 ####[facility] [address], [address] Thyroid Stim Hormone (TSH)on 05-09-2024 TSH 1.460 uIU/mL Normal 0.358-3.740 [facility] Comment on above: Order Comment: N1 Performed By: #### L 501.9520, L506.0400, L803.2200, L100.0100, L500.4050, L3300.0700, L500.4100, L800.1280, L3410.2400, L501.9985, L3100.1850, L504.2610, L3300.0100, L3400.0700, L300.3900, L3200.1100, L3000.0375, L503.6030, L3890.6005, L501.6710, L3300.1200, L3100.5450, L503.6550, L501.4700, L503.5510, L3130.0010, L506.1000, L3100.3425 ####[facility] [address] [place], [address] CBC AND ELECTRONIC DIFFon Basophils (Bld) [#/Vol] 0.08 10*3/uL 0.00 - 0.15 K/uL [facility] Basophils/100 WBC (Bld) 0.9 % [facility] Differential cell count method Nom (Bld) Electronic Differential [facility] Eosinophils (Bld) [#/Vol] 0.25 10*3/uL 0.00 - 0.42 K/uL [facility] Eosinophils/100 WBC (Bld) 2.8 % [facility] Erythrocyte distribution width (RBC) [Ratio] 15.1 % High 10.8 - 14.9 % [facility] Hematocrit (Bld) [Volume fraction] 36.4 % 34.9 - 44.3 % [facility] Hemoglobin (Bld) [Mass/Vol] 11.2 g/dL Low 11.4 - 15.2 g/dL [facility] Immature granulocytes (Bld) [#/Vol] 0.14 10*3/uL High NINF - 0.08 K/uL [facility] Immature granulocytes/100 WBC (Bld) 1.6 % [facility] Interpretation and review of laboratory results Abnormal [facility] Lymphocytes (Bld) [#/Vol] 2.88 10*3/uL 1.16 - 3.51 K/uL [facility] Lymphocytes/100 WBC (Bld) 32.5 % [facility] MCH (RBC) [Entitic mass] 25.1 pg Low 25.9 - 33.9 pg [facility] MCHC (RBC) [Mass/Vol] 30.8 g/dL Low 31.4 - 35.9 g/dL [facility] MCV (RBC) [Entitic vol] 81.4 fL 79.6 - 97.7 fL [facility] Monocytes (Bld) [#/Vol] 0.54 10*3/uL 0.22 - 0.87 K/uL [facility] Monocytes/100 WBC (Bld) 6.1 % [facility] Neutrophils (Bld) [#/Vol] 4.96 10*3/uL 1.64 - 7.28 K/uL [facility] Nucleated RBC/100 WBC (Bld) [Ratio] 0.0 % NINF [facility] Platelet mean volume (Bld) [Entitic vol] 10.3 fL 8.5 - 12.2 fL [facility] Platelets (Bld) [#/Vol] 282 10*3/uL 150 - 393 K/uL [facility] RBC (Bld) [#/Vol] 4.47 10*6/uL [facility] Segmented neutrophils/100 WBC (Bld) 56.1 % [facility] WBC (Bld) [#/Vol] 8.85 10*3/uL 3.99 - 11. 19 K/uL [facility] Basophils (Bld) [#/Vol] 0.08 10*3/uL Normal 0.00-0.15 [facility] Comment on above: Performed By: #### C MPN, LDO #### [facility] (DEFAULT) [address] [place] [address] Basophils/100 WBC (Bld) 0.9 % Normal [facility] Comment on above: Performed By: #### C MPN, LDO #### [facility] (DEFAULT) [address] [place] [address] [phone] DIFF STATUS Electronic Differential Normal [facility] Comment on above: Performed By: #### C MPN, LDO #### [facility] (DEFAULT) [address] [place] [address] [phone] Eosinophils (Bld) [#/Vol] 0.25 10*3/uL Normal 0.00-0.42 [facility] Comment on above: Performed By: #### C MPN, LDO #### [facility] (DEFAULT) [address] [place] [address] [phone] Eosinophils/100 WBC (Bld) 2.8 % Normal [facility] Comment on above: Performed By: #### C MPN, LDO #### [facility] (DEFAULT) [address] [place] [address] [phone] Hematocrit (Bld) [Volume fraction] 36.4 % Normal 34.9-44.3 [facility] Comment on above: Performed By: #### C MPN, LDO #### [facility] (DEFAULT) [address] [place] [address] [phone] Hemoglobin (Bld) [Mass/Vol] 11.2 g/dL Low 11.4-15.2 [facility] Comment on above: Performed By: #### C MPN, LDO #### [facility] (DEFAULT) [address] [place] [address] [phone] Immature Grans % 1.6 % Normal [facility] Comment on above: Performed By: #### C MPN, LDO #### [facility] (DEFAULT) [address] [place] [address] [phone] Immature Grans Absolute 0.14 K/uL High <=0.08 [facility] Comment on above: Performed By: #### C MPN, LDO #### [facility] (DEFAULT) [address] [place] [address] [phone] Lymphocytes (Bld) [#/Vol] 2.88 10*3/uL Normal 1.16-3.51 [facility] Comment on above: Performed By: #### C MPN, LDO #### [facility] (DEFAULT) [address] [place] [address] [phone] Lymphocytes/100 WBC (Bld) 32.5 % Normal [facility] Comment on above: Performed By: #### C MPN, LDO #### [facility] (DEFAULT) [address] [phone] MCV (RBC) [Entitic vol] 81.4 fL Normal 79.6-97.7 [facility] Comment on above: Performed By: #### C MPN, LDO #### [facility] (DEFAULT) [address] [place] [address] [phone] Mean Cell Hgb 25.1 pg Low 25.9-33.9 [facility] Comment on above: Performed By: #### C MPN, LDO #### [facility] (DEFAULT) [address] [place] [address] [phone] Mean Cell Hgb Conc 30.8 g/dL Low 31.4-35.9 [facility] Comment on above: Performed By: #### C MPN, LDO #### [facility] (DEFAULT) [address] [place] [address] [phone] Monocytes (Bld) [#/Vol] 0.54 10*3/uL Normal 0.22-0.87 [facility] Comment on above: Performed By: #### C MPN, LDO #### [facility] (DEFAULT) [address] [place] [address] 49502 Monocytes/100 WBC (Bld) 6.1 % Normal [facility] Comment on above: Performed By: #### C MPN, LDO #### [facility] (DEFAULT) [address] [place] [address] [phone] Nucleated RBC 0.0 /100 WBC Normal <=0.2 [facility] Comment on above: Performed By: #### C MPN, LDO #### [facility] (DEFAULT) [address] [place] [address] 43627 Platelet mean volume (Bld) [Entitic vol] 10.3 fL Normal 8.5-12.2 [facility] Comment on above: Performed By: #### C MPN, LDO #### [facility] (DEFAULT) [address] [place] [address] [phone] Platelets (Bld) [#/Vol] 282 10*3/uL Normal 150-393 [facility] Comment on above: Performed By: #### C MPN, LDO #### [facility] (DEFAULT) [address] [place] [address] [phone] RBC (Bld) [#/Vol] 4.47 10*6/uL Normal 3.91-5.04 [facility] Comment on above: Performed By: #### C MPN, LDO #### [facility] (DEFAULT) [address] [place] [address] [phone] RBC Distribution 15.1 % High 10.8-14.9 [facility] Comment on above: Performed By: #### C MPN, LDO #### [facility] (DEFAULT) [address] [place] [address] [phone] Segs + Bands Auto 56.1 % Normal [facility] Company Comment on above: Performed By: #### C MPN, LDO #### [facility] (DEFAULT) [address] [place] [address] 36562 Segs + Bands,Absolute Auto 4.96 K/uL Normal 1.64-7.28 [facility] Comment on above: Performed By: #### C MPN, LDO #### [facility] (DEFAULT) [address] [place] [address] 34562 WBC (Bld) [#/Vol] 8.85 10*3/uL Normal 3.99-11.19 [facility] Comment on above: Performed By: #### C MPN, LDO #### [facility] (DEFAULT) [address] [place] [address] 72035 CHROMOGRANIN Aon 05-07-2024 Chromogranin A 946 ng/mL High <93 [facility] Comment on above: Result Comment: Impa ired renal or hepatic function or treatment with proton pump inhibitors may result in artifactual elevations of Chromogranin A. ADDITIONAL INFORMATION The testing method is a homogeneous time-resolved immunofluorescent assay manufactured by [employer] and performed on the [employer] Kryptor Compact Plus. Values obtained with different [...] examination and other findings. Test Performed by: [facility] [address] [place] [address] [employer] Machine Setup Operator: Juana Recio Ph.D.; CLIA# [id number] Performed By: #### Y CHGRA #### [facility] (DEFAULT) [address] [place] [address] 52775 COMPREHENSIVE METABOLIC PANE Hakan 05-07-2024 Albumin [Mass/Vol] 3.8 g/dL Normal 3.5-5.0 [facility] Comment on above: Performed By: #### C MPN, LDO #### [facility] (DEFAULT) [address] [place] [address] 70335 ALP [Catalytic activity/Vol] 125 U/L Normal 32-126 [facility] Comment on above: Performed By: #### C MPN, LDO #### [facility] (DEFAULT) [address] [place] [address] 33491 ALT [Catalytic activity/Vol] 21 U/L Normal 9-48 [facility] Comment on above: Performed By: #### C MPN, LDO #### [facility] (DEFAULT) [address] [place] [address] 68398 Anion gap [Moles/Vol] 8 mmol/L Normal 7-17 [facility] Comment on above: Performed By: #### C MPN, LDO #### [facility] (DEFAULT) [address] [address] AST [Catalytic activity/Vol] 22 U/L Normal 10-39 [facility] Comment on above: Performed By: #### C MPN, LDO #### [facility] (DEFAULT) [address] [place] [address] 06696 Bilirubin [Mass/Vol] 0.5 mg/dL Normal <1.5 [facility] Comment on above: Performed By: #### C MPN, LDO #### [facility] (DEFAULT) [address] [place] [address] 32814 Calcium [Mass/Vol] 9.9 mg/dL Normal 8.6-10.5 [facility] Comment on above: Performed By: #### C MPN, LDO #### [facility] (DEFAULT) [address] [place] [address] 84562 Chloride [Moles/Vol] 99 mmol/L Normal 98-108 [facility] Comment on above: Performed By: #### C MPN, LDO #### [facility] (DEFAULT) [address] [place] [address] 86034 CO2 [Moles/Vol] 32 mmol/L High 21-31 [facility] Comment on above: Performed By: #### C MPN, LDO #### [facility] (DEFAULT) [address] [place] [address] 92666 Creatinine [Mass/Vol] 0.71 mg/dL Normal 0.50-1.20 [facility] Comment on above: Performed By: #### C MPN, LDO #### [facility] (DEFAULT) [address] [place] [address] 13241 eGFR, CKD-EPI, Female > Normal >=60 [facility] Comment on above: Result Comment: Repo rted eGFR is based on the CKD-EPI 2020 equation using creatinine, age, and sex. Performed By: #### C MPN, LDO #### [facility] (DEFAULT) [address] [place] [address] 77380 Glucose [Mass/Vol] 197 mg/dL High 70-99 [facility] Comment on above: Performed By: #### C MPN, LDO #### [facility] (DEFAULT) [address] [place] [address] 61529 Osmolality [Osmolality] 290 mosm/kg Normal 278-305 [facility] Comment on above: Performed By: #### C MPN, LDO #### [facility] (DEFAULT) [address] [place] [address] 80681 Potassium [Moles/Vol] 4.6 mmol/L Normal 3.5-5.0 [facility] Comment on above: Performed By: #### C MPN, LDO #### [facility] (DEFAULT) [address] [place] [address] 65205 Protein [Mass/Vol] 8.8 g/dL High 6.4-8.3 [facility] Comment on above: Performed By: #### C MPN, LDO #### [facility] (DEFAULT) [address] [place] [address] 56895 Sodium [Moles/Vol] 134 mmol/L Low 135-145 [facility] Comment on above: Performed By: #### C MPN, LDO #### [facility] (DEFAULT) [address] [place] [address] 40300 Urea nitrogen [Mass/Vol] 16 mg/dL Normal 7-25 [facility] Comment on above: Performed By: #### C MPN, LDO #### [facility] (DEFAULT) [address] [place] [address] 47338 Urea nitrogen/Creatinine [Mass ratio] 23 mg/mg Normal [facility] Comment on above: Performed By: #### C MPN, LDO #### [facility] (DEFAULT) [address] [place] [address] 30102 GASTRIN - NON-STIMULATEDon 1 0 Gastrin 591 pg/mL High [facility] Comment on above: Result Comment: REFERENCE VALUE <100 Reference ranges valid for >= 8 hour fast. Test Performed by: [facility] [address] [place] [address] [employer] Setup Operator: Juana Recio Ph.D.; CLIA# [id number] Performed By: #### P CA #### [facility] (DEFAULT) [address] [place] [address] Laboratory - Chemistry and C hemistry - challengeon 05-07-2024 Albumin [Mass/Vol] 3.8 g/dL 3.5 - 5.0 g/dL [facility] ALP [Catalytic activity/Vol] 125 U/L 32 - 126 U/L [facility] ALT [Catalytic activity/Vol] 21 U/L 9 - 48 U/L [facility] Anion gap [Moles/Vol] 8 mmol/L 7 - 17 mmol/L [facility] AST [Catalytic activity/Vol] 22 U/L 10 - 39 U/L [facility] Bilirubin [Mass/Vol] 0.5 mg/dL NINF - 1.5 mg/dL [facility] Calcium [Mass/Vol] 9.9 mg/dL 8.6 - 10. 5 mg/dL [facility] Chloride [Moles/Vol] 99 mmol/L 98 - 10 8 mmol/L [facility] CO2 [Moles/Vol] 32 mmol/L High 21 - 31 mmol/L [facility] Creatinine [Mass/Vol] 0.71 mg/dL 0.50 - 1.20 mg/dL [facility] Glucose [Mass/Vol] 197 mg/dL High 70 - 99 mg/dL [facility] Osmolality Calc [Osmolality] 290 [facility] Potassium [Moles/Vol] 4.6 mmol/L 3.5 - 5.0 mmol/L [facility] Protein [Mass/Vol] 8.8 g/dL High 6.4 - 8.3 g/dL [facility] Sodium [Moles/Vol] 134 mmol/L Low 135 - 145 mmol/L [facility] Urea nitrogen [Mass/Vol] 16 mg/dL 7 - 25 mg/dL [facility] Urea nitrogen/Creatinine [Mass ratio] 23 mg/mg [facility] No Panel Informationon 05-07 eGFR, CKD-EPI, Female - PINF [facility] Comment on above: Reported eGFR is bas ed on the CKD-EPI 2020 equation using creatinine, age, and sex. Interpretation and review of laboratory results Abnormal [facility] .GFRon 05-05-2024 GFR 95 ml/min/1.73sqm Normal [facility] Comment on above: Result Comment: GFR [...] MP, ADIFF, CBC, PBNP, GFR, ANEU #### [address] [address] GFR Non- 78 ml/min/1.73sqm [facility] Comment on above: Result Comment: GFR Population [...] MP, ADIFF, CBC, PBNP, GFR, ANEU #### [address] [address] CMPon 05-05-2024 Albumin Level 3.3 G/dL Low 3.5-5.[address] [facility] Comment on above: Performed By: #### C MP, ADIFF, CBC, PBNP, GFR, ANEU #### [address] [address] Albumin/Globulin [Mass ratio] 0.7 {ratio} Low 1.1-2.[address] [facility] Comment on above: Performed By: #### C MP, ADIFF, CBC, PBNP, GFR, ANEU #### [place] [id number] ALP [Catalytic activity/Vol] 172 U/L High 40-[address] [facility] Comment on above: Performed By: #### C MP, ADIFF, CBC, PBNP, GFR, ANEU #### [place] [phone] ALT [Catalytic activity/Vol] 32 U/L Normal 14-[address] [facility] Comment on above: Performed By: #### C MP, ADIFF, CBC, PBNP, GFR, ANEU #### [place] [id number] AST [Catalytic activity/Vol] 26 U/L Normal 10-[address] [facility] Comment on above: Performed By: #### C MP, ADIFF, CBC, PBNP, GFR, ANEU #### [address] [address] Bili Total 0.4 mg/dL Normal 0.2-1.[address] [facility] Comment on above: Result Comment: Use of this assay is not recommended for patients undergoing treatment with eltrombopag due to the potential for falsely elevated results. Performed By: #### C MP, ADIFF, CBC, PBNP, GFR, ANEU #### [place] [id number] BUN/Creatinine Ratio 22 ratio Normal 7-27 [facility] Comment on above: Performed By: #### C MP, ADIFF, CBC, PBNP, GFR, ANEU #### [address] [address] Calcium [Mass/Vol] 9.4 mg/dL Normal 8.4-10.2 [facility] Comment on above: Performed By: #### C MP, ADIFF, CBC, PBNP, GFR, ANEU #### [place] [id number] Chloride [Moles/Vol] 99 mmol/L Normal 98-107 [facility] Comment on above: Performed By: #### C MP, ADIFF, CBC, PBNP, GFR, ANEU #### [place] [address] CO2 [Moles/Vol] 32 mmol/L High 22-[address] [facility] Comment on above: Performed By: #### C MP, ADIFF, CBC, PBNP, GFR, ANEU #### [place] [address] Creatinine [Mass/Vol] 0.76 mg/dL Normal 0.55-1.02 [facility] Comment on above: Result Comment: Test ing performed on Siemens Dimension EXL analyzer using a modified kinetic Avila technique. Performed By: #### C MP, ADIFF, CBC, PBNP, GFR, ANEU #### [address] [address] Electrolyte Balance 6.0 mEq/L Normal 4.0-15.0 [facility] Comment on above: Performed By: #### C MP, ADIFF, CBC, PBNP, GFR, ANEU #### [address] [address] Globulin 5.0 G/dL Normal [facility] Comment on above: Performed By: #### C MP, ADIFF, CBC, PBNP, GFR, ANEU #### [address] [address] Glucose [Mass/Vol] 198 mg/dL High 70-105 [facility] Comment on above: Performed By: #### C MP, ADIFF, CBC, PBNP, GFR, ANEU #### [place] [address] [place], [place] [address] Potassium [Moles/Vol] 4.9 mmol/L Normal 3.5-5.1 [facility] Comment on above: Performed By: #### C MP, ADIFF, CBC, PBNP, GFR, ANEU #### [place] [address] [place], [place] [address] Sodium [Moles/Vol] 137 mmol/L Normal 136-145 [facility] Comment on above: Performed By: #### C MP, ADIFF, CBC, PBNP, GFR, ANEU #### [address] [address] Total Protein 8.3 G/dL High 6.4-8.[address] [facility] Comment on above: Performed By: #### C MP, ADIFF, CBC, PBNP, GFR, ANEU #### [address] [address] Urea nitrogen [Mass/Vol] 17 mg/dL Normal 7-[address] [facility] Comment on above: Performed By: #### C MP, ADIFF, CBC, PBNP, GFR, ANEU #### [address] [address] DLDLon 05-05-2024 Direct LDL Cholesterol 74 mg/dL Normal 0-[address] [facility] Comment on above: Result Comment: Dire ct LDL Cholesterol Reference Interval: Optimal: <100 mg/dL Near Optimal/above optimal: 100-129 mg/dL Borderline high: 130-159 mg/dL High: 160-189 mg/dL Very high: >=190 mg/dL Performed By: #### C MP, ADIFF, CBC, PBNP, GFR, ANEU #### [address] [address] LABORATORYOrdered By: SYSTEM SYSTEM on 05-05-2024 Albumin [...] 27 ratio AO ADM SS LABORATORYOrdered By: Adam Herrera on 05-05-2024 [...] Invalid Interpretation Code 0 - 130 AO ADM SS Comment on above: Result Comment: Trig lyceride >400 invalidates the calculated LDL. Triglyceride [Mass/Vol] 429 mg/dL High 0 - 150 mg/dL AO ADM SS Comment on above: Interpretive Data: T riglyceride Reference Interval: Less than 150 Normal 150-199 Borderline high risk 200-499 High risk 500 or higher Very high risk LIPIDon 05-05-2024 Cholesterol [Mass/Vol] 169 mg/dL Normal 0-[address] [facility] Comment on above: Result Comment: Chol esterol Reference Interval: Less than 200 Desirable 200-239 Borderline high risk 240 and above High risk Performed By: #### C MP, ADIFF, CBC, PBNP, GFR, ANEU #### [address] [address] Cholesterol in HDL [Mass/Vol] 30 mg/dL Low 40-[address] [facility] Comment on above: Performed By: #### C MP, ADIFF, CBC, PBNP, GFR, ANEU #### [address] [address] LDL Cholesterol Not Valid Normal 0-[address] [facility] Comment on above: Result Comment: Trig lyceride >400 invalidates the calculated LDL. Performed By: #### C MP, ADIFF, CBC, PBNP, GFR, ANEU #### [address] [address] Triglyceride [Mass/Vol] 429 mg/dL High 0-[address] [facility] Comment on above: Result Comment: Trig lyceride Reference Interval: Less than 150 Normal 150-199 Borderline high risk 200-499 High risk 500 or higher Very high risk Performed By: #### C MP, ADIFF, CBC, PBNP, GFR, ANEU #### [address] [address] CBC W/Diff, Automatedon - SMEAR COMMENT SCANNED Normal [facility] Comment on above: Result Comment: AUTO DIFF OK Performed By: #### L 100.9950, L503.6550, L500.4050, L503.0105, L503.6030, L100.0100 ####[facility] [address] [place], [address] Comprehensive Metabolic Prof ilon 04-16-2024 Albumin [Mass/Vol] 3.1 g/dL Low 3.2-5.0 [facility] Comment on above: Performed By: #### L 100.9950, L503.6550, L500.4050, L503.0105, L503.6030, L100.0100 ####[facility] [address] [place], [address] Albumin/Globulin [Mass ratio] 0.6 {ratio} Low 0.9-2.4 [facility] Comment on above: Performed By: #### L 100.9950, L503.6550, L500.4050, L503.0105, L503.6030, L100.0100 ####[facility] [address] [place], [address] ALK P 131 U/L High 45-117 [facility] Comment on above: Performed By: #### L 100.9950, L503.6550, L500.4050, L503.0105, L503.6030, L100.0100 ####[facility] [address] [place], [address] ALT [Catalytic activity/Vol] 25 U/L Normal 13-56 [facility] Comment on above: Performed By: #### L 100.9950, L503.6550, L500.4050, L503.0105, L503.6030, L100.0100 ####[facility] [address] [place], [address] AST [Catalytic activity/Vol] 31 U/L Normal 15-37 [facility] Comment on above: Performed By: #### L 100.9950, L503.6550, L500.4050, L503.0105, L503.6030, L100.0100 ####[facility] [address] [place], [address] Bilirubin [Mass/Vol] 0.70 mg/dL Normal 0.20-1.00 [facility] Comment on above: Result Comment: For patients on eltrombopag therapy, use of Dimension [place] TBIL is not recommended. Performed By: #### L 100.9950, L503.6550, L500.4050, L503.0105, L503.6030, L100.0100 ####[facility] [address] [place], [address] BUN/CRE 13.2 RATIO Normal 10-20 [facility] Comment on above: Performed By: #### L 100.9950, L503.6550, L500.4050, L503.0105, L503.6030, L100.0100 ####[facility] [address] [place], [address] CA,Total 9.2 mg/dL Normal 8.5-10.1 [facility] Comment on above: Performed By: #### L 100.9950, L503.6550, L500.4050, L503.0105, L503.6030, L100.0100 ####[facility] [address] [place], [address] Chloride [Moles/Vol] 101 mmol/L Normal 98-107 [facility] Comment on above: Performed By: #### L 100.9950, L503.6550, L500.4050, L503.0105, L503.6030, L100.0100 ####[facility] [address] [place], [address] CO2 [Moles/Vol] 32.0 mmol/L Normal 21.0-32.0 [facility] Comment on above: Performed By: #### L 100.9950, L503.6550, L500.4050, L503.0105, L503.6030, L100.0100 ####[facility] [address] [place], [address] Creatinine [Mass/Vol] 0.76 mg/dL Normal 0.55-1.02 [facility] Comment on above: Result Comment: The validity of the calculated GFR GFRAA in patients over70 years has not been determined. Clinical correlation isessential. Performed By: #### L 100.9950, L503.6550, L500.4050, L503.0105, L503.6030, L100.0100 ####[facility] [address] [place], [address] EST GFR - AA 102 mL/min Normal >60 [facility] Comment on above: Result Comment: Afri can [place] GFR Calc Performed By: #### L 100.9950, L503.6550, L500.4050, L503.0105, L503.6030, L100.0100 ####[facility] [address] [place], [address] GAP 4 Low 5-15 [facility] Comment on above: Performed By: #### L 100.9950, L503.6550, L500.4050, L503.0105, L503.6030, L100.0100 ####[facility] [address] [place], [address] GFR/1.73 sq M.predicted among non-blacks MDRD (S/P/Bld) [Vol rate/Area] 84 mL/min/{1.73_m2} Normal >60 [facility] Comment on above: Result Comment: Non- GFR Calc Performed By: #### L 100.9950, L503.6550, L500.4050, L503.0105, L503.6030, L100.0100 ####[facility] [address] [place], [address] Globulin (S) [Mass/Vol] 5.2 g/dL High 2.2-4.2 [facility] Comment on above: Performed By: #### L 100.9950, L503.6550, L500.4050, L503.0105, L503.6030, L100.0100 ####[facility] [address] [place], [address] Glucose [Mass/Vol] 140 mg/dL High 74-106 [facility] Comment on above: Result Comment: Fast ing Glucose result greater than or equal to 126 mg/dLsuggests DIABETES MELLITUS per A.D.A. criteria. Performed By: #### L 100.9950, L503.6550, L500.4050, L503.0105, L503.6030, L100.0100 ####[facility] [address] [place], [address] Potassium [Moles/Vol] 4.2 mmol/L Normal 3.5-5.1 [facility] Comment on above: Performed By: #### L 100.9950, L503.6550, L500.4050, L503.0105, L503.6030, L100.0100 ####[facility] [address] [place], [address] Sodium [Moles/Vol] 137 mmol/L Normal 136-145 [facility] Comment on above: Performed By: #### L 100.9950, L503.6550, L500.4050, L503.0105, L503.6030, L100.0100 ####[facility] [address] [place], [address] T PROT 8.3 g/dL High 6.4-8.2 [facility] Comment on above: Performed By: #### L 100.9950, L503.6550, L500.4050, L503.0105, L503.6030, L100.0100 ####[facility] [address] [place], [place], [phone] Urea nitrogen [Mass/Vol] 10 mg/dL Normal 7-18 [facility] Comment on above: Performed By: #### L 100.9950, L503.6550, L500.4050, L503.0105, L503.6030, L100.0100 ####[facility] [address] [place], [address]( Ferritinon 04-16-2024 Ferritin [Mass/Vol] 40 ng/mL Normal 8-252 [facility] Comment on above: Performed By: #### L 100.9950, L503.6550, L500.4050, L503.0105, L503.6030, L100.0100 ####[facility] [address] [place], [address](232) Iron+Iron Binding Capacityon 04-16-2024 Iron [Mass/Vol] 32 ug/dL Low 50-170 [facility] Comment on above: Performed By: #### L 100.9950, L503.6550, L500.4050, L503.0105, L503.6030, L100.0100 ####[facility] [address] [place], [address]([phone] IRON SATURATION 9.3 Low 15.0-55.0 [facility] Comment on above: Performed By: #### L 100.9950, L503.6550, L500.4050, L503.0105, L503.6030, L100.0100 ####[facility] [address] [place], [address] TIBC 345 ug/dL Normal 250-450 [facility] Comment on above: Performed By: #### L 100.9950, L503.6550, L500.4050, L503.0105, L503.6030, L100.0100 ####[facility] [address] [place], [address] Oncology Visit Reporton 03-23 Oncology Visit Report Normal [facility] Orthopedic Visit Reporton Orthopedic Visit Report Normal [facility] Retic Panelon 04-16-2024 IM RET FRACTION 21.00 High 3.00-15.90 [facility] Comment on above: Performed By: #### L 100.9950, L503.6550, L500.4050, L503.0105, L503.6030, L100.0100 ####[facility] [address] [place], [address] RET-HE 24.6 pg Low 30-35 [facility] Comment on above: Performed By: #### L 100.9950, L503.6550, L500.4050, L503.0105, L503.6030, L100.0100 ####[facility] [address] [place], [address] Retic Count 4.20 High 0.5-1.5 [facility] Comment on above: Performed By: #### L 100.9950, L503.6550, L500.4050, L503.0105, L503.6030, L100.0100 ####[facility] [address] [place], [address] Vitamin B12on 04-16-2024 Cobalamin (Vitamin B12) [Mass/Vol] 259 pg/mL Normal 211-911 [facility] Comment on above: Performed By: #### L 100.9950, L503.6550, L500.4050, L503.0105, L503.6030, L100.0100 ####[facility] [address] [place], [address] Gastroenterology Visit Repor ton 04-14-2024 Gastroenterology Visit Report Normal [facility] .Auto Diffon 04-13-2024 Basophil, Absolute 0.0 10 3/mcL Normal 0.0-0.2 [facility] Comment on above: Performed By: #### C MP, ADIFF, CBC, PBNP, GFR, ANEU #### [address] [address] Basophils/100 WBC (Bld) 0.5 % Normal 0.0-2.[address] [facility] Comment on above: Performed By: #### C MP, ADIFF, CBC, PBNP, GFR, ANEU #### [address] [address] Eosinophil, Absolute 0.1 10 3/mcL Normal 0.0-0.7 [facility] Comment on above: Performed By: #### C MP, ADIFF, CBC, PBNP, GFR, ANEU #### [address] [address] Eosinophils/100 WBC (Bld) 1.7 % Normal 0.0-7.[address] [facility] Comment on above: Performed By: #### C MP, ADIFF, CBC, PBNP, GFR, ANEU #### [address] [address] Lymphocyte, Absolute 1.9 10 3/mcL Normal 0.9-4.3 [facility] Comment on above: Performed By: #### C MP, ADIFF, CBC, PBNP, GFR, ANEU #### [address] [address] Lymphocytes/100 WBC (Bld) 24.9 % Normal 20.0-40.[address] [facility] Comment on above: Performed By: #### C MP, ADIFF, CBC, PBNP, GFR, ANEU #### [address] [address] Monocyte, Absolute 0.4 10 3/mcL Normal 0.1-1.4 [facility] Comment on above: Performed By: #### C MP, ADIFF, CBC, PBNP, GFR, ANEU #### [address] [address] Monocytes/100 WBC (Bld) 5.4 % Normal 2.0-13.[address] [facility] Comment on above: Performed By: #### C MP, ADIFF, CBC, PBNP, GFR, ANEU #### [address] [address] Neutrophils/100 WBC (Bld) 67.5 % Normal 50.0-75.[address] [facility] Comment on above: Performed By: #### C MP, ADIFF, CBC, PBNP, GFR, ANEU #### [address] [address] .NEUABSon 04-13-2024 Neutrophil, Absolute 5.2 10 3/mcL Normal 2.3-8.1 [facility] Comment on above: Performed By: #### C MP, ADIFF, CBC, PBNP, GFR, ANEU #### [address] [address] CBCon 04-13-2024 Erythrocyte distribution width (RBC) [Ratio] 17.4 % High 11.5-15.[address] [facility] Comment on above: Performed By: #### C MP, ADIFF, CBC, PBNP, GFR, ANEU #### [address] [address] Hematocrit (Bld) [Volume fraction] 31.6 % Low 34.0-46.[address] [facility] Comment on above: Performed By: #### C MP, ADIFF, CBC, PBNP, GFR, ANEU #### [address] [address] Hgb 9.9 G/dL Low 12.0-16.[address] [facility] Comment on above: Performed By: #### C MP, ADIFF, CBC, PBNP, GFR, ANEU #### [address] [address] MCH (RBC) [Entitic mass] 26.4 pg Low 27.0-33.[address] [facility] Comment on above: Performed By: #### C MP, ADIFF, CBC, PBNP, GFR, ANEU #### [address] [address] MCHC 31.3 G/dL Low 32.0-36.[address] [facility] Comment on above: Performed By: #### C MP, ADIFF, CBC, PBNP, GFR, ANEU #### [address] [address] MCV (RBC) [Entitic vol] 84.3 fL Normal 80.0-99.[address] [facility] Comment on above: Performed By: #### C MP, ADIFF, CBC, PBNP, GFR, ANEU #### [address] [address] Platelet 284 10 3/mcL Normal 150-[address] [facility] Comment on above: Performed By: #### C MP, ADIFF, CBC, PBNP, GFR, ANEU #### [address] [address] Platelet mean volume (Bld) [Entitic vol] 7.5 fL Normal 6.6-10.[address] [facility] Comment on above: Performed By: #### C MP, ADIFF, CBC, PBNP, GFR, ANEU #### [address] [address] RBC 3.75 10 6/mcL Low 4.10-5.[address] [facility] Comment on above: Performed By: #### C MP, ADIFF, CBC, PBNP, GFR, ANEU #### [address] [address] WBC 7.6 10 3/mcL Normal 4.5-10.[address] [facility] Comment on above: Performed By: #### C MP, ADIFF, CBC, PBNP, GFR, ANEU #### [address] [address] LABORATORYOrdered By: SYSTEM SYSTEM on 04-13-2024 Natriuretic [...] B (Bld) [Mass/Vol] 211 pg/mL High 0-[address] [facility] Comment on above: Result Comment: NT-p roBNP results of less than 300 pg/mL effectively rules out acute congestive heart failure with 99% negative predictive value. Performed By: #### P BNP #### [facility] [address] [place], [place] [address] Bedside Glucoseon 04-07-2024 FINGERSTICK GLU 222 mg/dL High 74-106 [facility] Comment on above: Result Comment: ESPERANZA GEMENT OF PATIENT CARE PER NURSING PROTOCOL Performed By: #### L 501.080 ####[facility] [address] [place], [address] FINGERSTICK GLU 237 mg/dL High 74-106 [facility] Comment on above: Result Comment: ESPERANZA GEMENT OF PATIENT CARE PER NURSING PROTOCOL Performed By: #### L 501.080 ####[facility] [address] [facility] [address] Discharge Instructionon 03-22 Discharge Instruction Normal [facility] Bedside Glucoseon 04-06-2024 FINGERSTICK GLU 252 mg/dL High 74-106 [facility] Comment on above: Result Comment: ESPERANZA GEMENT OF PATIENT CARE PER NURSING PROTOCOL Performed By: #### L 501.080 ####[facility] [address] [place], [address] FINGERSTICK GLU 216 mg/dL High [address] [place] [address] Comment on above: Result Comment: ESPERANZA GEMENT OF PATIENT CARE PER NURSING PROTOCOL Performed By: #### L 501.080 ####[facility] [address] [place], [address] FINGERSTICK GLU 285 mg/dL High 74-106 [facility] Comment on above: Result Comment: ESPERANZA GEMENT OF PATIENT CARE PER NURSING PROTOCOL Performed By: #### L 501.080 ####[facility] [address] [place], [address] FINGERSTICK GLU 219 mg/dL High 74-106 [facility] Comment on above: Result Comment: ESPERANZA VILLALTA OF PATIENT CARE PER NURSING PROTOCOL Performed By: #### L 501.080 ####[facility] [address] [place], [address] CBC W/Diff, Automatedon 03-22 PATH REV Reviewed Normal [facility] Comment on above: Result Comment: Neut rophilic left shift.Normocytic anemia.Clinical correlation necessary.Nate Carolina M.D. 04/06/24 AMENDED REPORT 04/06/24923 PATH REV previously reported as: November maegan Performed By: #### L 501.4020, L501.2450, L100.0100, L500.4050 ####[facility] [address] [place], [address] CBC-Complete Blood Cnt No Di ffon 04-06-2024 Erythrocyte distribution width (RBC) [Ratio] 19.0 % High 11.6-14.6 [facility] Comment on above: Performed By: #### L 100.0500 ####[facility] [address] [place], [address] Hematocrit (Bld) [Volume fraction] 29.1 % Low 37-47 [facility] Comment on above: Performed By: #### L 100.0500 ####[facility] [address] [place], [address] Hemoglobin (Bld) [Mass/Vol] 8.7 g/dL Low 12.0-15.0 [facility] Comment on above: Performed By: #### L 100.0500 ####[facility] [address] [place], [address] MCH (RBC) [Entitic mass] 27.0 pg Normal 27.0-32.0 [facility] Comment on above: Performed By: #### L 100.0500 ####[facility] [address] [place], [address] MCHC (RBC) [Mass/Vol] 29.9 g/dL Low 32-36 [facility] Comment on above: Performed By: #### L 100.0500 ####[facility] [address] [place], [address] MCV (RBC) [Entitic vol] 90.4 fL Normal 81-99 [facility] Comment on above: Performed By: #### L 100.0500 ####[facility] [address] [place], [address] Platelet mean volume (Bld) [Entitic vol] 9.6 fL Normal 6.2-12.0 [facility] Comment on above: Performed By: #### L 100.0500 ####[facility] [address] [place], [address] Platelets (Bld) [#/Vol] 227 10*3/uL Normal 150-450 [facility] Comment on above: Performed By: #### L 100.0500 ####[facility] [address] [place], [address] RBC (Bld) [#/Vol] 3.22 10*6/uL Low 4.2-5.4 [facility] Comment on above: Performed By: #### L 100.0500 ####[facility] [address] [place], [address] RDW SD 61.0 fl High 35.1-43.9 [facility] Comment on above: Performed By: #### L 100.0500 ####[facility] [address] [place], [address] WBC (Bld) [#/Vol] 9.4 10*3/uL Normal 4.4-11.0 [facility] Comment on above: Performed By: #### L 100.0500 ####[facility] [address] [place], [address] MR/PN.GIon 04-06-2024 MR/PN.GI Normal [facility] Bedside Glucoseon 04-05-2024 FINGERSTICK GLU 235 mg/dL High 74-106 [facility] Comment on above: Result Comment: ESPERANZA GEMENT OF PATIENT CARE PER NURSING PROTOCOL Performed By: #### L 501.080 ####[facility] [address] [place], [address] FINGERSTICK GLU 168 mg/dL High [facility]106 [facility] Comment on above: Result Comment: ESPERANZA GEMENT OF PATIENT CARE PER NURSING PROTOCOL Performed By: #### L 501.080 ####[facility] [address] [place], [address] FINGERSTICK GLU 186 mg/dL High [facility]106 [facility] Comment on above: Result Comment: ESPERANZA GEMENT OF PATIENT CARE PER NURSING PROTOCOL Performed By: #### L 501.080 ####[facility] [address] [place], [address] FINGERSTICK GLU 180 mg/dL High [address] [place] [address] Comment on above: Result Comment: ESPERANZA GEMENT OF PATIENT CARE PER NURSING PROTOCOL Performed By: #### L 501.080 ####[facility] [address] [place], [address] CBC-Complete Blood Cnt No Di ffon 04-05-2024 Erythrocyte distribution width (RBC) [Ratio] 19.4 % High 11.6-14.6 [facility] Comment on above: Performed By: #### L 100.0500 ####[facility] [address] [place], [address] Hematocrit (Bld) [Volume fraction] 28.5 % Low 37-47 [facility] Comment on above: Performed By: #### L 100.0500 ####[facility] [address] [place], [address] Hemoglobin (Bld) [Mass/Vol] 8.5 g/dL Low 12.0-15.0 [facility] Comment on above: Performed By: #### L 100.0500 ####[facility] [address] [place], [address] MCH (RBC) [Entitic mass] 27.2 pg Normal 27.0-32.0 [facility] Comment on above: Performed By: #### L 100.0500 ####[facility] [address] [place], [address] MCHC (RBC) [Mass/Vol] 29.8 g/dL Low 32-36 [facility] Comment on above: Performed By: #### L 100.0500 ####[facility] [address] [place], [address] MCV (RBC) [Entitic vol] 91.1 fL Normal 81-99 [facility] Comment on above: Performed By: #### L 100.0500 ####[facility] [address] [place], [address] Platelet mean volume (Bld) [Entitic vol] 9.9 fL Normal 6.2-12.0 [facility] Comment on above: Performed By: #### L 100.0500 ####[facility] [address] [place], [address] Platelets (Bld) [#/Vol] 213 10*3/uL Normal 150-450 [facility] Comment on above: Performed By: #### L 100.0500 ####[facility] [address] [place], [address] RBC (Bld) [#/Vol] 3.13 10*6/uL Low 4.2-5.4 [facility] Comment on above: Performed By: #### L 100.0500 ####[facility] [address] [place], [address] RDW SD 61.2 fl High 35.1-43.9 [facility] Comment on above: Performed By: #### L 100.0500 ####[facility] [address] [place], [address] WBC (Bld) [#/Vol] 8.1 10*3/uL Normal 4.4-11.0 [facility] Comment on above: Performed By: #### L 100.0500 ####[facility] [address] [place], [address] Basic Metabolic Profile (BMP )on 04-04-2024 BUN/CRE 23.7 RATIO High 10-20 [facility] Comment on above: Performed By: #### L 500.2500, L100.0100 ####[facility] [address] [place], [address] CA,Total 8.8 mg/dL Normal 8.5-10.1 [facility] Comment on above: Performed By: #### L 500.2500, L100.0100 ####[facility] [address] [place], [address] Chloride [Moles/Vol] 104 mmol/L Normal 98-107 [facility] Comment on above: Performed By: #### L 500.2500, L100.0100 ####[facility] [address] [place], [address] CO2 [Moles/Vol] 28.0 mmol/L Normal 21.0-32.0 [facility] Comment on above: Performed By: #### L 500.2500, L100.0100 ####[facility] [address] [place], [address] Creatinine [Mass/Vol] 0.63 mg/dL Normal 0.55-1.02 [facility] Comment on above: Result Comment: The validity of the calculated GFR GFRAA in patients over70 years has not been determined. Clinical correlation isessential. Performed By: #### L 500.2500, L100.0100 ####[facility] [address] [place], [address] ECRCL 113.97 ml/min Normal [facility] Comment on above: Performed By: #### L 500.2500, L100.0100 ####[facility] [address] [place], [address] EST GFR - AA 125 mL/min Normal >60 [facility] Comment on above: Result Comment: Afri can [place] GFR Calc Performed By: #### L 500.2500, L100.0100 ####[facility] [address] [place], [address] GAP 4 Low 5-15 [facility] Comment on above: Performed By: #### L 500.2500, L100.0100 ####[facility] [address] [place], [address] GFR/1.73 sq M.predicted among non-blacks MDRD (S/P/Bld) [Vol rate/Area] 103 mL/min/{1.73_m2} Normal >60 [facility] Comment on above: Result Comment: Non- GFR Calc Performed By: #### L 500.2500, L100.0100 ####[facility] [address] [place], [address] Glucose [Mass/Vol] 217 mg/dL High 74-106 [facility] Comment on above: Result Comment: Gluc ose result greater than or equal to 200 mg/dLsuggests DIABETES MELLITUS per A.D.A. criteria. Performed By: #### L 500.2500, L100.0100 ####[facility] [facility] [address] [place], [address] Potassium [Moles/Vol] 4.1 mmol/L Normal 3.5-5.1 [facility] Comment on above: Performed By: #### L 500.2500, L100.0100 ####[facility] [address] [place], [address] Sodium [Moles/Vol] 136 mmol/L Normal 136-145 [facility] Comment on above: Performed By: #### L 500.2500, L100.0100 ####[facility] [address] [place], [address] Urea nitrogen [Mass/Vol] 15 mg/dL Normal 7-18 [facility] Comment on above: Performed By: #### L 500.2500, L100.0100 ####[facility] [address] [place], [address] Bedside Glucoseon 04-04-2024 FINGERSTICK GLU 186 mg/dL High 74-106 [facility] Comment on above: Result Comment: ESPERANZA GEMENT OF PATIENT CARE PER NURSING PROTOCOL Performed By: #### L 501.080 ####[facility] [address] [place], [address] FINGERSTICK GLU 248 mg/dL High -106 [facility] Comment on above: Result Comment: ESPERANZA GEMENT OF PATIENT CARE PER NURSING PROTOCOL Performed By: #### L 501.080 ####[facility] [address] [place], [address] FINGERSTICK GLU 199 mg/dL High -106 [facility] Comment on above: Result Comment: ESPERANZA GEMENT OF PATIENT CARE PER NURSING PROTOCOL Performed By: #### L 501.080 ####[facility] [address] [place], [address] FINGERSTICK GLU 214 mg/dL High 74-106 [facility] Comment on above: Result Comment: ESPERANZA GEMENT OF PATIENT CARE PER NURSING PROTOCOL Performed By: #### L 501.080 ####[facility] [address] [place], [address] FINGERSTICK GLU 184 mg/dL High 74-106 [facility] Comment on above: Result Comment: ESPERANZA GEMENT OF PATIENT CARE PER NURSING PROTOCOL Performed By: #### L 501.080 ####[facility] [address] [place], [address] CBC W/Diff, Automatedon 03-22 Absolute Lymph 1.26 X10 3/uL Normal 0.83-4.51 [facility] Comment on above: Performed By: #### L 500.2500, L100.0100 ####[facility] [address] [place], [address] Absolute Neut 5.9 X10 3/uL Normal 2.0-7.7 [facility] Comment on above: Performed By: #### L 500.2500, L100.0100 ####[facility] [address] [place], [address] PLT MORPH LARGE Normal [facility] Comment on above: Performed By: #### L 500.2500, L100.0100 ####[facility] [address] [place], [address] SMEAR COMMENT SCANNED Normal [facility] Comment on above: Result Comment: LEFT SHIFT: BANDS PRESENT 1+ Performed By: #### L 500.2500, L100.0100 ####[facility] [address] [place], [address] BAND 27 High 0-5 [facility] Comment on above: Performed By: #### L 500.2500, L100.0100 ####[facility] [address] [place], [address] Lymphocytes (Bld) [#/Vol] 17 10*3/uL Low 19-41 [facility] Comment on above: Performed By: #### L 500.2500, L100.0100 ####[facility] [address] [place], [address] MONOCYTE 3 Normal 0-10 [facility] Comment on above: Performed By: #### L 500.2500, L100.0100 ####[facility] [address] [place], [address] SEGS 53 Normal 47-70 [facility] Comment on above: Performed By: #### L 500.2500, L100.0100 ####[facility] [address] [place], [address] TOTAL CELLS 100 Normal MANUAL DIFF [facility] Comment on above: Performed By: #### L 500.2500, L100.0100 ####[facility] [address] [place], [address] EGD Reporton 04-04-2024 EGD Report Normal [facility] MR/CON.PCM.GIon 04-04-2024 MR/CON.PCM.GI Normal [facility] MR/POSTOP.ANEon 04-04-2024 MR/POSTOP.ANE Normal [facility] MR/[id number] 04-04-2024 MR/POSTOPAN2 Normal [facility] NSE (add)on 04-04-2024 NSE (add) Normal [facility] Comment on above: Performed By: #### P NSE. ####[facility] [address] [place], [address] Surgery Specimen Level Aicha 04-04-2024 Surgery Specimen Level IV Normal [facility] Comment on above: Performed By: #### P SUIV ####[facility] [address] [place], [address] Urine Cultureon 04-04-2024 URC Mixed Gram Positive Organisms [place] Count 1000-10,000 MIXC Mixed contaminants. Submit a new specimen if indicated. Normal [facility] Comment on above: Performed By: #### M 100.6558 ####[facility] [address] [place], [address] 12 Lead EKGon 04-03-2024 12 Lead EKG Normal [facility] Abdomen/Pelvis W IV Cont ONL Yon 04-03-2024 Abdomen/Pelvis W IV Cont ONLY Normal [facility] BNP,B-Type NATRIURETIC PEPTI Lucila 04-03-2024 Natriuretic peptide B (Bld) [Mass/Vol] 45.5 pg/mL Normal 0-100 [facility] Comment on above: Performed By: #### L 712.0608 ####[facility] [address] [place], [address] BRCon 04-03-2024 RC Normal [facility] Comment on above: Result Comment: [id number] ON RC TRANSFUSED 04/03/24 [id number] ON RC TRANSFUSED 04/04/24 [id number] ON RC NOT AVAILABLE Performed By: #### B [facility] ####[facility] [address] [place], [address] CTA Chest W/WO Contraston CTA Chest W/WO Contrast Normal [facility] Comprehensive Metabolic Prof ilon 04-03-2024 Albumin [Mass/Vol] 2.4 g/dL Low 3.2-5.0 [facility] Comment on above: Order Comment: 'TROP ' Serial specimen #1, #2 or #3: 1 Performed By: #### L 501.4020, L501.2450, L100.0100, L500.4050 ####[facility] [address] [place], [address] Albumin/Globulin [Mass ratio] 0.5 {ratio} Low 0.9-2.4 [facility] Comment on above: Order Comment: 'TROP ' Serial specimen #1, #2 or #3: 1 Performed By: #### L 501.4020, L501.2450, L100.0100, L500.4050 ####[facility] [address] [place], [address] ALK P 176 U/L High 45-117 [facility] Comment on above: Order Comment: 'TROP ' Serial specimen #1, #2 or #3: 1 Performed By: #### L 501.4020, L501.2450, L100.0100, L500.4050 ####[facility] [address] [place], [address] ALT [Catalytic activity/Vol] 18 U/L Normal 13-56 [facility] Comment on above: Order Comment: 'TROP ' Serial specimen #1, #2 or #3: 1 Performed By: #### L 501.4020, L501.2450, L100.0100, L500.4050 ####[facility] [address] [place], [address] AST [Catalytic activity/Vol] 17 U/L Normal 15-37 [facility] Comment on above: Order Comment: 'TROP ' Serial specimen #1, #2 or #3: 1 Performed By: #### L 501.4020, L501.2450, L100.0100, L500.4050 ####[facility] [address] [place], [address] Bilirubin [Mass/Vol] 0.50 mg/dL Normal 0.20-1.00 [facility] Comment on above: Order Comment: 'TROP ' Serial specimen #1, #2 or #3: 1 Result Comment: For patients on eltrombopag therapy, use of Dimension [place] TBIL is not recommended. Performed By: #### L 501.4020, L501.2450, L100.0100, L500.4050 ####[facility] [address] [place], [address] BUN/CRE 35.0 RATIO High 10-20 [facility] Comment on above: Order Comment: 'TROP ' Serial specimen #1, #2 or #3: 1 Performed By: #### L 501.4020, L501.2450, L100.0100, L500.4050 ####[facility] [address] [place], [address] CA,Total 8.9 mg/dL Normal 8.5-10.1 [facility] Comment on above: Order Comment: 'TROP ' Serial specimen #1, #2 or #3: 1 Performed By: #### L 501.4020, L501.2450, L100.0100, L500.4050 ####[facility] [address] [place], [address] Chloride [Moles/Vol] 103 mmol/L Normal 98-107 [facility] Comment on above: Order Comment: 'TROP ' Serial specimen #1, #2 or #3: 1 Performed By: #### L 501.4020, L501.2450, L100.0100, L500.4050 ####[facility] [address] [place], [address] CO2 [Moles/Vol] 29.0 mmol/L Normal 21.0-32.0 [facility] Comment on above: Order Comment: 'TROP ' Serial specimen #1, #2 or #3: 1 Performed By: #### L 501.4020, L501.2450, L100.0100, L500.4050 ####[facility] [address] [place], [address] Creatinine [Mass/Vol] 0.71 mg/dL Normal 0.55-1.02 [facility] Comment on above: Order Comment: 'TROP ' Serial specimen #1, #2 or #3: 1 Result Comment: The validity of the calculated GFR GFRAA in patients over70 years has not been determined. Clinical correlation isessential. Performed By: #### L 501.4020, L501.2450, L100.0100, L500.4050 ####[facility] [address] [place], [address] EST GFR - AA 108 mL/min Normal >60 [facility] Comment on above: Order Comment: 'TROP ' Serial specimen #1, #2 or #3: 1 Result Comment: Afri can [place] GFR Calc Performed By: #### L 501.4020, L501.2450, L100.0100, L500.4050 ####[facility] [address] [place], [address] GAP 3 Low 5-15 [facility] Comment on above: Order Comment: 'TROP ' Serial specimen #1, #2 or #3: 1 Performed By: #### L 501.4020, L501.2450, L100.0100, L500.4050 ####[facility] [address] [place], [address] GFR/1.73 sq M.predicted among non-blacks MDRD (S/P/Bld) [Vol rate/Area] 90 mL/min/{1.73_m2} Normal >60 [facility] Comment on above: Order Comment: 'TROP ' Serial specimen #1, #2 or #3: 1 Result Comment: Non- GFR Calc Performed By: #### L 501.4020, L501.2450, L100.0100, L500.4050 ####[facility] [address] [place], [address] Globulin (S) [Mass/Vol] 4.5 g/dL High 2.2-4.2 [facility] Comment on above: Order Comment: 'TROP ' Serial specimen #1, #2 or #3: 1 Performed By: #### L 501.4020, L501.2450, L100.0100, L500.4050 ####[facility] [address] [place], [address] Glucose [Mass/Vol] 282 mg/dL High 74-106 [facility] Comment on above: Order Comment: 'TROP ' Serial specimen #1, #2 or #3: 1 Result Comment: Gluc ose result greater than or equal to 200 mg/dLsuggests DIABETES MELLITUS per A.D.A. criteria. Performed By: #### L 501.4020, L501.2450, L100.0100, L500.4050 ####[facility] [address] [place], [address] Potassium [Moles/Vol] 4.4 mmol/L Normal 3.5-5.1 [facility] Comment on above: Order Comment: 'TROP ' Serial specimen #1, #2 or #3: 1 Performed By: #### L 501.4020, L501.2450, L100.0100, L500.4050 ####[facility] [address] [place], [address] Sodium [Moles/Vol] 135 mmol/L Low 136-145 [facility] Comment on above: Order Comment: 'TROP ' Serial specimen #1, #2 or #3: 1 Performed By: #### L 501.4020, L501.2450, L100.0100, L500.4050 ####[facility] [address] [place], [address] T PROT 6.9 g/dL Normal 6.4-8.2 [facility] Comment on above: Order Comment: 'TROP ' Serial specimen #1, #2 or #3: 1 Performed By: #### L 501.4020, L501.2450, L100.0100, L500.4050 ####[facility] [address] [place], [address] Urea nitrogen [Mass/Vol] 25 mg/dL High 7-18 [facility] Comment on above: Order Comment: 'TROP ' Serial specimen #1, #2 or #3: 1 Performed By: #### L 501.4020, L501.2450, L100.0100, L500.4050 ####[facility] [address] [place], [address] Emergency Department Summary on 04-03-2024 Emergency Department Summary Normal [facility] H AND P Exam - Hospitaliston 04-03-2024 H&P Exam - Hospitalist Normal [facility] HH, Hemoglobin AND Hematocri ton 04-03-2024 Hematocrit (Bld) [Volume fraction] 23.1 % Low 37-47 [facility] Comment on above: Performed By: #### L 100.0600 ####[facility] [address] [place], [address] Hemoglobin (Bld) [Mass/Vol] 6.8 g/dL Low 12.0-15.0 [facility] Comment on above: Performed By: #### L 100.0600 ####[facility] [address] [place], [address] L501.4020on 04-03-2024 TROPONIN-I HS 39 pg/mL Normal 3.0-54.0 [facility] Comment on above: Order Comment: 'TROP ' Serial specimen #1, #2 or #3: 1 Result Comment: Plea se Note: New Test Units and Gender Specific Reference Ranges. For more information see Policy Stat Procedure [place] High Sensitivity Troponin (TNIH) and attachments. Performed By: #### L 501.4020, L501.2450, L100.0100, L500.4050 ####[facility] [address] [place], [address] Lipaseon 04-03-2024 Lipase [Catalytic activity/Vol] 28 U/L Normal 13-75 [facility] Comment on above: Order Comment: 'TROP ' Serial specimen #1, #2 or #3: 1 Result Comment: Plea se note:LIPASE revised reference range effective 22.New Lipase methodology. Expected to produce lower valuesthan the previous assay method.NEW Reference Range: 13 - 75 U/L Performed By: #### L 501.4020, L501.2450, L100.0100, L500.4050 ####[facility] [address] [place], [address] M100.678on 04-03-2024 M100.678 Pending SARS-CoV-2 (COVID 19) Negative INFLUENZA A Negative INFLUENZA B Negative RSV PCR Negative Normal [facility] Comment on above: Performed By: #### M 100.678 ####[facility] [address] [place], [address] Stool Occult Blood iFOBon STOB Positive Normal [facility] Comment on above: Performed By: #### M 100.7900 ####[facility] [address] [place], [address] Type AND Screenon 04-03-2024 Ab SCREEN GEL Negative Normal [facility] Comment on above: Order Comment: CMV N EG? NNumber of units to transfuse: 1Reason for Ordering Blood: AcuteAre the blood/blood products to be transfused? YIs the patient having/had surgery? YWhen ReadyNY Performed By: #### B ROZINA, [facility] ####[facility] [address] [place], [address] Urinalysis, Completeon 04-03 BACTERIA RARE Normal None Seen [facility] Comment on above: Order Comment: CLEAN CATCH Performed By: #### L 400.0001 ####[facility] [address] [place], [address] EPI,SQUAMOUS 5-10 SEEN Normal 5-10 [facility] Comment on above: Order Comment: CLEAN CATCH Performed By: #### L 400.0001 ####[facility] [address] [place], [address] WBC 50-100 SEEN Normal 0-5 [facility] Comment on above: Order Comment: CLEAN CATCH Performed By: #### L 400.0001 ####[facility] [address] [place], [address] RBC 25-50 SEEN Normal 0-5 [facility] Comment on above: Order Comment: CLEAN CATCH Performed By: #### L 400.0001 ####[facility] [address] [place], [address] Mucus Ql (Urine sed) 0 SEEN Normal [facility] Comment on above: Order Comment: CLEAN CATCH Performed By: #### L 400.0001 ####[facility] [address] [place], [address] Venous Duplex US, Unilateral on 04-03-2024 Venous Duplex US, Unilateral Normal [facility] XR WRIST MINIMUM 3 VIEWS [...] 03/30/2024 3:29:35 AM Ordering Provider: ALDA Epstein [facility] NITROFURANTOIN:SUSC:PT:ISOLA TE:ORDQN:MICon 03-16-2024 Nitrofurantoin SHAHEEN [Susc] 10,000 - 50,000 cfu/ml Enterococcus faecalis [facility] Work Phone: Nitrofurantoin SHAHEEN [Susc]on 03-16-2024 Enterococcus faecalis Enterococcus faecalis [facility] Work Phone: XR ABDOMEN APon 03-16-2024 XR ABDOMEN AP ORIGINAL EXAMINATION: ONE SUPINE XRAY VIEW(S) OF THE ABDOMEN8/ 8:55 am COMPARISON: CT 02/25/2024 HISTORY: ORDERING [...] Date: 03/16/2024 9:06:05 AM Ordering Provider: KURT [facility] ([place]) Basic Metabolic Profile (BMP )on 03-12-2024 BUN Normal 7-18 [facility] Comment on above: Result Comment: Canc elled via OM: Order cancelled - Patient discharged Performed By: #### L 100.0100, L500.2500 ####[facility] [address] [place], [address] BUN/CRE Normal 10-20 [facility] Comment on above: Result Comment: Canc elled via OM: Order cancelled - Patient discharged Performed By: #### L 100.0100, L500.2500 ####[facility] [address] [place], [address] CA,Total Normal 8.5-10.1 [facility] Comment on above: Result Comment: Canc elled via OM: Order cancelled - Patient discharged Performed By: #### L 100.0100, L500.2500 ####[facility] [address] [place], [address] CL Normal 98-107 [facility] Comment on above: Result Comment: Canc elled via OM: Order cancelled - Patient discharged Performed By: #### L 100.0100, L500.2500 ####[facility] [address] [place], [address] CO2 Normal 21.0-32.0 [facility] Comment on above: Result Comment: Canc elled via OM: Order cancelled - Patient discharged Performed By: #### L 100.0100, L500.2500 ####[facility] [address] [place], [address] CREAT,SERUM Normal 0.55-1.02 [facility] Comment on above: Result Comment: Canc elled via OM: Order cancelled - Patient discharged Performed By: #### L 100.0100, L500.2500 ####[facility] [address] [place], [address] EST GFR Normal >60 [facility] Comment on above: Result Comment: Canc elled via OM: Order cancelled - Patient discharged Performed By: #### L 100.0100, L500.2500 ####[facility] [address] [place], [address] EST GFR - AA Normal >60 [facility] Comment on above: Result Comment: Canc elled via OM: Order cancelled - Patient discharged Performed By: #### L 100.0100, L500.2500 ####[facility] [address] [place], [address] GAP Normal 5-15 [facility] Comment on above: Result Comment: Canc elled via OM: Order cancelled - Patient discharged Performed By: #### L 100.0100, L500.2500 ####[facility] [address] [place], [address] GLU Normal 74-106 [facility] Comment on above: Result Comment: Canc elled via OM: Order cancelled - Patient discharged Performed By: #### L 100.0100, L500.2500 ####[facility] [address] [place], [address] Potassium Normal 3.5-5.1 [facility] Comment on above: Result Comment: Canc elled via OM: Order cancelled - Patient discharged Performed By: #### L 100.0100, L500.2500 ####[facility] [address] [place], [address] Basic Metabolic Profile (BMP) Normal 136-145 [facility] Comment on above: Result Comment: Canc elled via OM: Order cancelled - Patient discharged Performed By: #### L 100.0100, L500.2500 ####[facility] [address] [place], [address] CBC W/Diff, Automatedon 08- Absolute Neut Normal 2.0-7.7 [facility] Comment on above: Result Comment: Canc elled via OM: Order cancelled - Patient discharged Performed By: #### L 100.0100, L500.2500 ####[facility] [address] [place], [address] HCT Normal 37-47 [facility] Comment on above: Result Comment: Canc elled via OM: Order cancelled - Patient discharged Performed By: #### L 100.0100, L500.2500 ####[facility] [address] [place], [address] HGB Normal 12.0-15.0 [facility] Comment on above: Result Comment: Canc elled via OM: Order cancelled - Patient discharged Performed By: #### L 100.0100, L500.2500 ####[facility] [address] [place], [address] MCH Normal 27.0-32.0 [facility] Comment on above: Result Comment: Canc elled via OM: Order cancelled - Patient discharged Performed By: #### L 100.0100, L500.2500 ####[facility] [address] [place], [address] MCHC Normal 32-36 [facility] Comment on above: Result Comment: Canc elled via OM: Order cancelled - Patient discharged Performed By: #### L 100.0100, L500.2500 ####[facility] [address] [place], [address] MCV Normal 81-99 [facility] Comment on above: Result Comment: Canc elled via OM: Order cancelled - Patient discharged Performed By: #### L 100.0100, L500.2500 ####[facility] [address] [place], [address] NEUT% Normal 47-70 [facility] Comment on above: Result Comment: Canc elled via OM: Order cancelled - Patient discharged Performed By: #### L 100.0100, L500.2500 ####[facility] [address] [place], [address] PLT Normal 150-450 [facility] Comment on above: Result Comment: Canc elled via OM: Order cancelled - Patient discharged Performed By: #### L 100.0100, L500.2500 ####[facility] [address] [place], [address] RBC Normal 4.2-5.4 [facility] Comment on above: Result Comment: Canc elled via OM: Order cancelled - Patient discharged Performed By: #### L 100.0100, L500.2500 ####[facility] [address] [place], [address] RDW CV Normal 11.6-14.6 [facility] Comment on above: Result Comment: Canc elled via OM: Order cancelled - Patient discharged Performed By: #### L 100.0100, L500.2500 ####[facility] [address] [place], [address] RDW SD Normal 35.1-43.9 [facility] Comment on above: Result Comment: Canc elled via OM: Order cancelled - Patient discharged Performed By: #### L 100.0100, L500.2500 ####[facility] [address] [place], [address] WBC Normal 4.4-11.0 [facility] Comment on above: Result Comment: Canc elled via OM: Order cancelled - Patient discharged Performed By: #### L 100.0100, L500.2500 ####[facility] [address] [place], [address] Endocrinology Visit Reporton 03-12-2024 Endocrinology Visit Report Normal [facility] Basic Metabolic Profile (BMP )on 03-11-2024 BUN Normal 7-18 [facility] Comment on above: Result Comment: Canc elled via OM: Order cancelled - Patient discharged Performed By: #### L 100.0100, L500.2500 ####[facility] [address] [place], [address] BUN/CRE Normal 10-20 [facility] Comment on above: Result Comment: Canc elled via OM: Order cancelled - Patient discharged Performed By: #### L 100.0100, L500.2500 ####[facility] [address] [place], [address] CA,Total Normal 8.5-10.1 [facility] Comment on above: Result Comment: Canc elled via OM: Order cancelled - Patient discharged Performed By: #### L 100.0100, L500.2500 ####[facility] [address] [place], [address] CL Normal 98-107 [facility] Comment on above: Result Comment: Canc elled via OM: Order cancelled - Patient discharged Performed By: #### L 100.0100, L500.2500 ####[facility] [address] [place], [address] CO2 Normal 21.0-32.0 [facility] Comment on above: Result Comment: Canc elled via OM: Order cancelled - Patient discharged Performed By: #### L 100.0100, L500.2500 ####[facility] [address] [place], [address] CREAT,SERUM Normal 0.55-1.02 [facility] Comment on above: Result Comment: Canc elled via OM: Order cancelled - Patient discharged Performed By: #### L 100.0100, L500.2500 ####[facility] [address] [place], [address] EST GFR Normal >60 [facility] Comment on above: Result Comment: Canc elled via OM: Order cancelled - Patient discharged Performed By: #### L 100.0100, L500.2500 ####[facility] [address] [place], [address] EST GFR - AA Normal >60 [facility] Comment on above: Result Comment: Canc elled via OM: Order cancelled - Patient discharged Performed By: #### L 100.0100, L500.2500 ####[facility] [address] [place], [address] GAP Normal 5-15 [facility] Comment on above: Result Comment: Canc elled via OM: Order cancelled - Patient discharged Performed By: #### L 100.0100, L500.2500 ####[facility] [address] [place], [address] GLU Normal 74-106 [facility] Comment on above: Result Comment: Canc elled via OM: Order cancelled - Patient discharged Performed By: #### L 100.0100, L500.2500 ####[facility] [address] [place], [address] Potassium Normal 3.5-5.1 [facility] Comment on above: Result Comment: Canc elled via OM: Order cancelled - Patient discharged Performed By: #### L 100.0100, L500.2500 ####[facility] [address] [place], [address] Basic Metabolic Profile (BMP) Normal 136-145 [facility] Comment on above: Result Comment: Canc elled via OM: Order cancelled - Patient discharged Performed By: #### L 100.0100, L500.2500 ####[facility] [address] [place], [address] CBC W/Diff, Automatedon 08-2 Absolute Neut Normal 2.0-7.7 [facility] Comment on above: Result Comment: Canc elled via OM: Order cancelled - Patient discharged Performed By: #### L 100.0100, L500.2500 ####[facility] [address] [place], [address] HCT Normal 37-47 [facility] Comment on above: Result Comment: Canc elled via OM: Order cancelled - Patient discharged Performed By: #### L 100.0100, L500.2500 ####[facility] [address] [place], [address] HGB Normal 12.0-15.0 [facility] Comment on above: Result Comment: Canc elled via OM: Order cancelled - Patient discharged Performed By: #### L 100.0100, L500.2500 ####[facility] [address] [place], [address] MCH Normal 27.0-32.0 [facility] Comment on above: Result Comment: Canc elled via OM: Order cancelled - Patient discharged Performed By: #### L 100.0100, L500.2500 ####[facility] [address] [place], [address] MCHC Normal 32-36 [facility] Comment on above: Result Comment: Canc elled via OM: Order cancelled - Patient discharged Performed By: #### L 100.0100, L500.2500 ####[facility] [address] [place], [address] MCV Normal 81-99 [facility] Comment on above: Result Comment: Canc elled via OM: Order cancelled - Patient discharged Performed By: #### L 100.0100, L500.2500 ####[facility] [address] [place], [address] NEUT% Normal 47-70 [facility] Comment on above: Result Comment: Canc elled via OM: Order cancelled - Patient discharged Performed By: #### L 100.0100, L500.2500 ####[facility] [address] [place], [address] PLT Normal 150-450 [facility] Comment on above: Result Comment: Canc elled via OM: Order cancelled - Patient discharged Performed By: #### L 100.0100, L500.2500 ####[facility] [address] [place], [address] RBC Normal 4.2-5.4 [facility] Comment on above: Result Comment: Canc elled via OM: Order cancelled - Patient discharged Performed By: #### L 100.0100, L500.2500 ####[facility] [address] [place], [address] RDW CV Normal 11.6-14.6 [facility] Comment on above: Result Comment: Canc elled via OM: Order cancelled - Patient discharged Performed By: #### L 100.0100, L500.2500 ####[facility] [address] [place], [address] RDW SD Normal 35.1-43.9 [facility] Comment on above: Result Comment: Canc elled via OM: Order cancelled - Patient discharged Performed By: #### L 100.0100, L500.2500 ####[facility] [address] [place], [address] WBC Normal 4.4-11.0 [facility] Comment on above: Result Comment: Canc elled via OM: Order cancelled - Patient discharged Performed By: #### L 100.0100, L500.2500 ####[facility] [address] [place], [address] Basic Metabolic Profile (BMP )on 03-10-2024 BUN Normal 7-18 [facility] Comment on above: Result Comment: Canc elled via OM: Order cancelled - Patient discharged Performed By: #### L 500.2500, L100.0100 ####[facility] [address] [place], [address] BUN/CRE Normal 10-20 [facility] Comment on above: Result Comment: Canc elled via OM: Order cancelled - Patient discharged Performed By: #### L 500.2500, L100.0100 ####[facility] [address] [place], [address] CA,Total Normal 8.5-10.1 [facility] Comment on above: Result Comment: Canc elled via OM: Order cancelled - Patient discharged Performed By: #### L 500.2500, L100.0100 ####[facility] [address] [place], [address] CL Normal 98-107 [facility] Comment on above: Result Comment: Canc elled via OM: Order cancelled - Patient discharged Performed By: #### L 500.2500, L100.0100 ####[facility] [address] [place], [address] CO2 Normal 21.0-32.0 [facility] Comment on above: Result Comment: Canc elled via OM: Order cancelled - Patient discharged Performed By: #### L 500.2500, L100.0100 ####[facility] [address] [place], [address] CREAT,SERUM Normal 0.55-1.02 [facility] Comment on above: Result Comment: Canc elled via OM: Order cancelled - Patient discharged Performed By: #### L 500.2500, L100.0100 ####[facility] [address] [place], [address] EST GFR Normal >60 [facility] Comment on above: Result Comment: Canc elled via OM: Order cancelled - Patient discharged Performed By: #### L 500.2500, L100.0100 ####[facility] [address] [place], [address] EST GFR - AA Normal >60 [facility] Comment on above: Result Comment: Canc elled via OM: Order cancelled - Patient discharged Performed By: #### L 500.2500, L100.0100 ####[facility] [address] [place], [address] GAP Normal 5-15 [facility] Comment on above: Result Comment: Canc elled via OM: Order cancelled - Patient discharged Performed By: #### L 500.2500, L100.0100 ####[facility] [address] [place], [address] GLU Normal 74-106 [facility] Comment on above: Result Comment: Canc elled via OM: Order cancelled - Patient discharged Performed By: #### L 500.2500, L100.0100 ####[facility] [address] [place], [address] Potassium Normal 3.5-5.1 [facility] Comment on above: Result Comment: Canc elled via OM: Order cancelled - Patient discharged Performed By: #### L 500.2500, L100.0100 ####[facility] [address] [place], [address] Basic Metabolic Profile (BMP) Normal 136-145 [facility] Comment on above: Result Comment: Canc elled via OM: Order cancelled - Patient discharged Performed By: #### L 500.2500, L100.0100 ####[facility] [address] [place], [address] CBC W/Diff, Automatedon 08-2 0-2023 Absolute Neut Normal 2.0-7.7 [facility] Comment on above: Result Comment: Canc elled via OM: Order cancelled - Patient discharged Performed By: #### L 500.2500, L100.0100 ####[facility] [address] [place], [address] HCT Normal 37-47 [facility] Comment on above: Result Comment: Canc elled via OM: Order cancelled - Patient discharged Performed By: #### L 500.2500, L100.0100 ####[facility] [address] [place], [address] HGB Normal 12.0-15.0 [facility] Comment on above: Result Comment: Canc elled via OM: Order cancelled - Patient discharged Performed By: #### L 500.2500, L100.0100 ####[facility] [address] [place], [address] MCH Normal 27.0-32.0 [facility] Comment on above: Result Comment: Canc elled via OM: Order cancelled - Patient discharged Performed By: #### L 500.2500, L100.0100 ####[facility] [address] [place], [address] MCHC Normal 32-36 [facility] Comment on above: Result Comment: Canc elled via OM: Order cancelled - Patient discharged Performed By: #### L 500.2500, L100.0100 ####[facility] [address] [place], [address] MCV Normal 81-99 [facility] Comment on above: Result Comment: Canc elled via OM: Order cancelled - Patient discharged Performed By: #### L 500.2500, L100.0100 ####[facility] [address] [place], [address] NEUT% Normal 47-70 [facility] Comment on above: Result Comment: Canc elled via OM: Order cancelled - Patient discharged Performed By: #### L 500.2500, L100.0100 ####[facility] [address] [place], [address] PLT Normal 150-450 [facility] Comment on above: Result Comment: Canc elled via OM: Order cancelled - Patient discharged Performed By: #### L 500.2500, L100.0100 ####[facility] [address] [place], [address] RBC Normal 4.2-5.4 [facility] Comment on above: Result Comment: Canc elled via OM: Order cancelled - Patient discharged Performed By: #### L 500.2500, L100.0100 ####[facility] [address] [place], [address] RDW CV Normal 11.6-14.6 [facility] Comment on above: Result Comment: Canc elled via OM: Order cancelled - Patient discharged Performed By: #### L 500.2500, L100.0100 ####[facility] [address] [place], [address] RDW SD Normal 35.1-43.9 [facility] Comment on above: Result Comment: Canc elled via OM: Order cancelled - Patient discharged Performed By: #### L 500.2500, L100.0100 ####[facility] [address] [place], [address] WBC Normal 4.4-11.0 [facility] Comment on above: Result Comment: Canc elled via OM: Order cancelled - Patient discharged Performed By: #### L 500.2500, L100.0100 ####[facility] [address] [place], [address] Basic Metabolic Profile (BMP )on 03-09-2024 BUN Normal 7-18 [facility] Comment on above: Result Comment: Canc elled via OM: Order cancelled - Patient discharged Performed By: #### L 100.0100, L500.2500 ####[facility] [address] [place], [address] BUN/CRE Normal 10-20 [facility] Comment on above: Result Comment: Canc elled via OM: Order cancelled - Patient discharged Performed By: #### L 100.0100, L500.2500 ####[facility] [address] [place], [address] CA,Total Normal 8.5-10.1 [facility] Comment on above: Result Comment: Canc elled via OM: Order cancelled - Patient discharged Performed By: #### L 100.0100, L500.2500 ####[facility] [address] [place], [address] CL Normal 98-107 [facility] Comment on above: Result Comment: Canc elled via OM: Order cancelled - Patient discharged Performed By: #### L 100.0100, L500.2500 ####[facility] [address] [place], [address] CO2 Normal 21.0-32.0 [facility] Comment on above: Result Comment: Canc elled via OM: Order cancelled - Patient discharged Performed By: #### L 100.0100, L500.2500 ####[facility] [address] [place], [address] CREAT,SERUM Normal 0.55-1.02 [facility] Comment on above: Result Comment: Canc elled via OM: Order cancelled - Patient discharged Performed By: #### L 100.0100, L500.2500 ####[facility] [address] [place], [address] EST GFR Normal >60 [facility] Comment on above: Result Comment: Canc elled via OM: Order cancelled - Patient discharged Performed By: #### L 100.0100, L500.2500 ####[facility] [address] [place], [address] EST GFR - AA Normal >60 [facility] Comment on above: Result Comment: Canc elled via OM: Order cancelled - Patient discharged Performed By: #### L 100.0100, L500.2500 ####[facility] [address] [place], [address] GAP Normal 5-15 [facility] Comment on above: Result Comment: Canc elled via OM: Order cancelled - Patient discharged Performed By: #### L 100.0100, L500.2500 ####[facility] [address] [place], [address] GLU Normal 74-106 [facility] Comment on above: Result Comment: Canc elled via OM: Order cancelled - Patient discharged Performed By: #### L 100.0100, L500.2500 ####[facility] [address] [place], [address] Potassium Normal 3.5-5.1 [facility] Comment on above: Result Comment: Canc elled via OM: Order cancelled - Patient discharged Performed By: #### L 100.0100, L500.2500 ####[facility] [address] [place], [address] Basic Metabolic Profile (BMP) Normal 136-145 [facility] Comment on above: Result Comment: Canc elled via OM: Order cancelled - Patient discharged Performed By: #### L 100.0100, L500.2500 ####[facility] [address] [place], [address] CBC W/Diff, Automatedon 02-19 Absolute Neut Normal 2.0-7.7 [facility] Comment on above: Result Comment: Canc elled via OM: Order cancelled - Patient discharged Performed By: #### L 100.0100, L500.2500 ####[facility] [address] [place], [address] HCT Normal 37-47 [facility] Comment on above: Result Comment: Canc elled via OM: Order cancelled - Patient discharged Performed By: #### L 100.0100, L500.2500 ####[facility] [address] [place], [address] HGB Normal 12.0-15.0 [facility] Comment on above: Result Comment: Canc elled via OM: Order cancelled - Patient discharged Performed By: #### L 100.0100, L500.2500 ####[facility] [address] [place], [address] MCH Normal 27.0-32.0 [facility] Comment on above: Result Comment: Canc elled via OM: Order cancelled - Patient discharged Performed By: #### L 100.0100, L500.2500 ####[facility] [address] [place], [address] MCHC Normal 32-36 [facility] Comment on above: Result Comment: Canc elled via OM: Order cancelled - Patient discharged Performed By: #### L 100.0100, L500.2500 ####[facility] [address] [place], [address] MCV Normal 81-99 [facility] Comment on above: Result Comment: Canc elled via OM: Order cancelled - Patient discharged Performed By: #### L 100.0100, L500.2500 ####[facility] [address] [place], [address] NEUT% Normal 47-70 [facility] Comment on above: Result Comment: Canc elled via OM: Order cancelled - Patient discharged Performed By: #### L 100.0100, L500.2500 ####[facility] [address] [place], [address] PLT Normal 150-450 [facility] Comment on above: Result Comment: Canc elled via OM: Order cancelled - Patient discharged Performed By: #### L 100.0100, L500.2500 ####[facility] [address] [place], [address] RBC Normal 4.2-5.4 [facility] Comment on above: Result Comment: Canc elled via OM: Order cancelled - Patient discharged Performed By: #### L 100.0100, L500.2500 ####[facility] [address] [place], [address] RDW CV Normal 11.6-14.6 [facility] Comment on above: Result Comment: Canc elled via OM: Order cancelled - Patient discharged Performed By: #### L 100.0100, L500.2500 ####[facility] [address] [place], [address] RDW SD Normal 35.1-43.9 [facility] Comment on above: Result Comment: Canc elled via OM: Order cancelled - Patient discharged Performed By: #### L 100.0100, L500.2500 ####[facility] [address] [place], [address] WBC Normal 4.4-11.0 [facility] Comment on above: Result Comment: Canc elled via OM: Order cancelled - Patient discharged Performed By: #### L 100.0100, L500.2500 ####[facility] [address] [place], [address] Basic Metabolic Profile (BMP )on 03-08-2024 BUN Normal 7-18 [facility] Comment on above: Result Comment: Canc elled via OM: Order cancelled - Patient discharged Performed By: #### L 100.0100, L500.2500 ####[facility] [address] [place], [address] BUN/CRE Normal 10-20 [facility] Comment on above: Result Comment: Canc elled via OM: Order cancelled - Patient discharged Performed By: #### L 100.0100, L500.2500 ####[facility] [address] [place], [address] CA,Total Normal 8.5-10.1 [facility] Comment on above: Result Comment: Canc elled via OM: Order cancelled - Patient discharged Performed By: #### L 100.0100, L500.2500 ####[facility] [address] [place], [address] CL Normal 98-107 [facility] Comment on above: Result Comment: Canc elled via OM: Order cancelled - Patient discharged Performed By: #### L 100.0100, L500.2500 ####[facility] [address] [place], [address] CO2 Normal 21.0-32.0 [facility] Comment on above: Result Comment: Canc elled via OM: Order cancelled - Patient discharged Performed By: #### L 100.0100, L500.2500 ####[facility] [address] [place], [address] CREAT,SERUM Normal 0.55-1.02 [facility] Comment on above: Result Comment: Canc elled via OM: Order cancelled - Patient discharged Performed By: #### L 100.0100, L500.2500 ####[facility] [address] [place], [address] EST GFR Normal >60 [facility] Comment on above: Result Comment: Canc elled via OM: Order cancelled - Patient discharged Performed By: #### L 100.0100, L500.2500 ####[facility] [address] [place], [address] EST GFR - AA Normal >60 [facility] Comment on above: Result Comment: Canc elled via OM: Order cancelled - Patient discharged Performed By: #### L 100.0100, L500.2500 ####[facility] [address] [place], [address] GAP Normal 5-15 [facility] Comment on above: Result Comment: Canc elled via OM: Order cancelled - Patient discharged Performed By: #### L 100.0100, L500.2500 ####[facility] [address] [place], [address] GLU Normal 74-106 [facility] Comment on above: Result Comment: Canc elled via OM: Order cancelled - Patient discharged Performed By: #### L 100.0100, L500.2500 ####[facility] [address] [place], [address] Potassium Normal 3.5-5.1 [facility] Comment on above: Result Comment: Canc elled via OM: Order cancelled - Patient discharged Performed By: #### L 100.0100, L500.2500 ####[facility] [address] [place], [address] Basic Metabolic Profile (BMP) Normal 136-145 [facility] Comment on above: Result Comment: Canc elled via OM: Order cancelled - Patient discharged Performed By: #### L 100.0100, L500.2500 ####[facility] [address] [place], [address] CBC W/Diff, Automatedon 08- Absolute Neut Normal 2.0-7.7 [facility] Comment on above: Result Comment: Canc elled via OM: Order cancelled - Patient discharged Performed By: #### L 100.0100, L500.2500 ####[facility] [address] [place], [address] HCT Normal 37-47 [facility] Comment on above: Result Comment: Canc elled via OM: Order cancelled - Patient discharged Performed By: #### L 100.0100, L500.2500 ####[facility] [address] [place], [address] HGB Normal 12.0-15.0 [facility] Comment on above: Result Comment: Canc elled via OM: Order cancelled - Patient discharged Performed By: #### L 100.0100, L500.2500 ####[facility] [address] [place], [address] MCH Normal 27.0-32.0 [facility] Comment on above: Result Comment: Canc elled via OM: Order cancelled - Patient discharged Performed By: #### L 100.0100, L500.2500 ####[facility] [address] [place], [address] MCHC Normal 32-36 [facility] Comment on above: Result Comment: Canc elled via OM: Order cancelled - Patient discharged Performed By: #### L 100.0100, L500.2500 ####[facility] [address] [place], [address] MCV Normal 81-99 [facility] Comment on above: Result Comment: Canc elled via OM: Order cancelled - Patient discharged Performed By: #### L 100.0100, L500.2500 ####[facility] [address] [place], [address] NEUT% Normal 47-70 [facility] Comment on above: Result Comment: Canc elled via OM: Order cancelled - Patient discharged Performed By: #### L 100.0100, L500.2500 ####[facility] [address] [place], [address] PLT Normal 150-450 [facility] Comment on above: Result Comment: Canc elled via OM: Order cancelled - Patient discharged Performed By: #### L 100.0100, L500.2500 ####[facility] [address] [place], [address] RBC Normal 4.2-5.4 [facility] Comment on above: Result Comment: Canc elled via OM: Order cancelled - Patient discharged Performed By: #### L 100.0100, L500.2500 ####[facility] [address] [place], [address] RDW CV Normal 11.6-14.6 [facility] Comment on above: Result Comment: Canc elled via OM: Order cancelled - Patient discharged Performed By: #### L 100.0100, L500.2500 ####[facility] [address] [place], [address] RDW SD Normal 35.1-43.9 [facility] Comment on above: Result Comment: Canc elled via OM: Order cancelled - Patient discharged Performed By: #### L 100.0100, L500.2500 ####[facility] [address] [place], [address] WBC Normal 4.4-11.0 [facility] Comment on above: Result Comment: Canc elled via OM: Order cancelled - Patient discharged Performed By: #### L 100.0100, L500.2500 ####[facility] [address] [place], [address] Basic Metabolic Profile (BMP )on 03-07-2024 BUN/CRE 22.7 RATIO High 10-20 [facility] Comment on above: Performed By: #### L 100.0100, L500.2500 ####[facility] [address] [place], [address] CA,Total 8.7 mg/dL Normal 8.5-10.1 [facility] Comment on above: Performed By: #### L 100.0100, L500.2500 ####[facility] [address] [place], [address] Chloride [Moles/Vol] 104 mmol/L Normal 98-107 [facility] Comment on above: Performed By: #### L 100.0100, L500.2500 ####[facility] [address] [place], [address] CO2 [Moles/Vol] 28.0 mmol/L Normal 21.0-32.0 [facility] Comment on above: Performed By: #### L 100.0100, L500.2500 ####[facility] [address] [place], [address] Creatinine [Mass/Vol] 0.66 mg/dL Normal 0.55-1.02 [facility] Comment on above: Result Comment: The validity of the calculated GFR GFRAA in patients over70 years has not been determined. Clinical correlation isessential. Performed By: #### L 100.0100, L500.2500 ####[facility] [address] [place], [address] ECRCL 108.38 ml/min Normal [facility] Comment on above: Performed By: #### L 100.0100, L500.2500 ####[facility] [address] [place], [address] EST GFR - AA 118 mL/min Normal >60 [facility] Comment on above: Result Comment: Afri can [place] GFR Calc Performed By: #### L 100.0100, L500.2500 ####[facility] [address] [place], [address] GAP 5 Normal 5-15 [facility] Comment on above: Performed By: #### L 100.0100, L500.2500 ####[facility] [address] [place], [address] GFR/1.73 sq M.predicted among non-blacks MDRD (S/P/Bld) [Vol rate/Area] 98 mL/min/{1.73_m2} Normal >60 [facility] Comment on above: Result Comment: Non- GFR Calc Performed By: #### L 100.0100, L500.2500 ####[facility] [address] [place], [address] Glucose [Mass/Vol] 212 mg/dL High 74-106 [facility] Comment on above: Result Comment: Gluc ose result greater than or equal to 200 mg/dLsuggests DIABETES MELLITUS per A.D.A. criteria. Performed By: #### L 100.0100, L500.2500 ####[facility] [address] [place], [address] Potassium [Moles/Vol] 4.0 mmol/L Normal 3.5-5.1 [facility] Comment on above: Performed By: #### L 100.0100, L500.2500 ####[facility] [address] [place], [address] Sodium [Moles/Vol] 137 mmol/L Normal 136-145 [facility] Comment on above: Performed By: #### L 100.0100, L500.2500 ####[facility] [address] [place], [address] Urea nitrogen [Mass/Vol] 15 mg/dL Normal 7-18 [facility] Comment on above: Performed By: #### L 100.0100, L500.2500 ####[facility] [address] [place], [address] Bedside Glucoseon 03-07-2024 FINGERSTICK GLU 287 mg/dL High 74-106 [facility] Comment on above: Result Comment: ESPERANZA VILLALTA OF PATIENT CARE PER NURSING PROTOCOL Performed By: #### L 501.080 ####[facility] [address] [place], [address] FINGERSTICK GLU 182 mg/dL High 74-106 [facility] Comment on above: Result Comment: ESPERANZA VILLALTA OF PATIENT CARE PER NURSING PROTOCOL Performed By: #### L 501.080 ####[facility] [address] [place], [address] CBC W/Diff, Automatedon 02-19 Absolute Lymph 2.79 X10 3/uL Normal 0.83-4.51 [facility] Comment on above: Performed By: #### L 100.0100, L500.2500 ####[facility] [address] [place], [address] Absolute Neut 4.6 X10 3/uL Normal 2.0-7.7 [facility] Comment on above: Performed By: #### L 100.0100, L500.2500 ####[facility] [address] [place], [address] Basophils/100 WBC (Bld) 0.3 % Normal 0-1 [facility] Comment on above: Performed By: #### L 100.0100, L500.2500 ####[facility] [facility] [address] [place], [address] Eosinophils/100 WBC (Bld) 0.3 % Normal 0-5 [facility] Comment on above: Performed By: #### L 100.0100, L500.2500 ####[facility] [address] [place], [address] Erythrocyte distribution width (RBC) [Ratio] 15.9 % High 11.6-14.6 [facility] Comment on above: Performed By: #### L 100.0100, L500.2500 ####[facility] [address] [place], [address] Hematocrit (Bld) [Volume fraction] 36.8 % Low 37-47 [facility] Comment on above: Performed By: #### L 100.0100, L500.2500 ####[facility] [address] [place], [address] Hemoglobin (Bld) [Mass/Vol] 11.2 g/dL Low 12.0-15.0 [facility] Comment on above: Performed By: #### L 100.0100, L500.2500 ####[facility] [address] [place], [address] IG% 1.300 High 0.0-0.9 [facility] Comment on above: Result Comment: IG% - Immature Granulocytes (promyelocytes, myelocytes andmetamyelocytes) > 1% indicates that a LEFT SHIFT is Present. Performed By: #### L 100.0100, L500.2500 ####[facility] [address] [place], [address] Lymphocytes/100 WBC (Bld) 35.2 % Normal 19-41 [facility] Comment on above: Performed By: #### L 100.0100, L500.2500 ####[facility] [address] [place], [address] MCH (RBC) [Entitic mass] 26.2 pg Low 27.0-32.0 [facility] Comment on above: Performed By: #### L 100.0100, L500.2500 ####[facility] [address] [place], [address] MCHC (RBC) [Mass/Vol] 30.4 g/dL Low 32-36 [facility] Comment on above: Performed By: #### L 100.0100, L500.2500 ####[facility] [address] [place], [address] MCV (RBC) [Entitic vol] 86.2 fL Normal 81-99 [facility] Comment on above: Performed By: #### L 100.0100, L500.2500 ####[facility] [address] [place], [address] Monocytes/100 WBC (Bld) 5.0 % Normal 0-10 [facility] Comment on above: Performed By: #### L 100.0100, L500.2500 ####[facility] [address] [place], [address] Neutrophils/100 WBC (Bld) 57.9 % Normal 47-70 [facility] Comment on above: Performed By: #### L 100.0100, L500.2500 ####[facility] [address] [place], [address] Nucleated RBC (Bld) [#/Vol] 0 10*3/uL Normal 0-5 [facility] Comment on above: Performed By: #### L 100.0100, L500.2500 ####[facility] [address] [place], [address] Platelet mean volume (Bld) [Entitic vol] 10.5 fL Normal 6.2-12.0 [facility] Comment on above: Performed By: #### L 100.0100, L500.2500 ####[facility] [address] [place], [address] Platelets (Bld) [#/Vol] 190 10*3/uL Normal 150-450 [facility] Comment on above: Performed By: #### L 100.0100, L500.2500 ####[facility] [address] [place], [address] RBC (Bld) [#/Vol] 4.27 10*6/uL Normal 4.2-5.4 [facility] Comment on above: Performed By: #### L 100.0100, L500.2500 ####[facility] [address] [place], [address] RDW SD 49.9 fl High 35.1-43.9 [facility] Comment on above: Performed By: #### L 100.0100, L500.2500 ####[facility] [address] [place], [address] WBC (Bld) [#/Vol] 7.9 10*3/uL Normal 4.4-11.0 [facility] Comment on above: Performed By: #### L 100.0100, L500.2500 ####[facility] [address] [place], [address] Discharge Instructionon 02-19 Discharge Instruction Normal [facility] Urine Cultureon 03-07-2024 URC Culture exhibits no growth. Normal [facility] Comment on above: Performed By: #### M 100.2200 ####[facility] [address] [place], [address] Basic Metabolic Profile (BMP )on 03-06-2024 BUN/CRE 22.2 RATIO High 10-20 [facility] Comment on above: Performed By: #### L 100.0100, L500.2500 ####[facility] [address] [place], [address] CA,Total 8.7 mg/dL Normal 8.5-10.1 [facility] Comment on above: Performed By: #### L 100.0100, L500.2500 ####[facility] [address] [place], [address] Chloride [Moles/Vol] 106 mmol/L Normal 98-107 [facility] Comment on above: Performed By: #### L 100.0100, L500.2500 ####[facility] [address] [place], [address] CO2 [Moles/Vol] 29.0 mmol/L Normal 21.0-32.0 [facility] Comment on above: Performed By: #### L 100.0100, L500.2500 ####[facility] [address] [place], [address] Creatinine [Mass/Vol] 0.68 mg/dL Normal 0.55-1.02 [facility] Comment on above: Result Comment: The validity of the calculated GFR GFRAA in patients over70 years has not been determined. Clinical correlation isessential. Performed By: #### L 100.0100, L500.2500 ####[facility] [address] [place], [address] ECRCL 104.44 ml/min Normal [facility] Comment on above: Performed By: #### L 100.0100, L500.2500 ####[facility] [address] [place], [address] EST GFR - AA 115 mL/min Normal >60 [facility] Comment on above: Result Comment: Afri can Citizen [place] GFR Calc Performed By: #### L 100.0100, L500.2500 ####[facility] [address] [place], [address] GAP 3 Low 5-15 [facility] Comment on above: Performed By: #### L 100.0100, L500.2500 ####[facility] [address] [place], [address] GFR/1.73 sq M.predicted among non-blacks MDRD (S/P/Bld) [Vol rate/Area] 95 mL/min/{1.73_m2} Normal >60 [facility] Comment on above: Result Comment: Non- GFR Calc Performed By: #### L 100.0100, L500.2500 ####[facility] [address] [place], [address] Glucose [Mass/Vol] 72 mg/dL Low 74-106 [facility] Comment on above: Performed By: #### L 100.0100, L500.2500 ####[facility] [address] [place], [address] Potassium [Moles/Vol] 3.7 mmol/L Normal 3.5-5.1 [facility] Comment on above: Performed By: #### L 100.0100, L500.2500 ####[facility] [address] [place], [address] Sodium [Moles/Vol] 138 mmol/L Normal 136-145 [facility] Comment on above: Performed By: #### L 100.0100, L500.2500 ####[facility] [address] [place], [address] Urea nitrogen [Mass/Vol] 15 mg/dL Normal 7-18 [facility] Comment on above: Performed By: #### L 100.0100, L500.2500 ####[facility] [address] [place], [address] Bedside Glucoseon 03-06-2024 FINGERSTICK GLU 309 mg/dL High 74-106 [facility] Comment on above: Result Comment: ESPERANZA GEMENT OF PATIENT CARE PER NURSING PROTOCOL Performed By: #### L 501.080 ####[facility] [address] [place], [address] FINGERSTICK GLU 255 mg/dL High 74-106 [facility] Comment on above: Result Comment: ESPERANZA GEMENT OF PATIENT CARE PER NURSING PROTOCOL Performed By: #### L 501.080 ####[facility] [address] [place], [address] FINGERSTICK GLU 118 mg/dL High 74-106 [facility] Comment on above: Result Comment: ESPERANZA GEMENT OF PATIENT CARE PER NURSING PROTOCOL Performed By: #### L 501.080 ####[facility] [address] [place], [address] FINGERSTICK GLU 69 mg/dL Low 74-106 [facility] Comment on above: Result Comment: ESPERANZA VILLALTA OF PATIENT CARE PER NURSING PROTOCOL Performed By: #### L 501.080 ####[facility] [address] [place], [address] CBC W/Diff, Automatedon 02-19 Absolute Lymph 2.59 X10 3/uL Normal 0.83-4.51 [facility] Comment on above: Performed By: #### L 100.0100, L500.2500 ####[facility] [address] [place], [address] Absolute Neut 3.5 X10 3/uL Normal 2.0-7.7 [facility] Comment on above: Performed By: #### L 100.0100, L500.2500 ####[facility] [address] [place], [address] Basophils/100 WBC (Bld) 0.8 % Normal 0-1 [facility] Comment on above: Performed By: #### L 100.0100, L500.2500 ####[facility] [address] [place], [address] Eosinophils/100 WBC (Bld) 0.8 % Normal 0-5 [facility] Comment on above: Performed By: #### L 100.0100, L500.2500 ####[facility] [address] [place], [address] Erythrocyte distribution width (RBC) [Ratio] 15.7 % High 11.6-14.6 [facility] Comment on above: Performed By: #### L 100.0100, L500.2500 ####[facility] [address] [place], [address] Hematocrit (Bld) [Volume fraction] 36.7 % Low 37-47 [facility] Comment on above: Performed By: #### L 100.0100, L500.2500 ####[facility] [address] [place], [address] Hemoglobin (Bld) [Mass/Vol] 11.2 g/dL Low 12.0-15.0 [facility] Comment on above: Performed By: #### L 100.0100, L500.2500 ####[facility] [address] [place], [address] IG% 1.400 High 0.0-0.9 [facility] Comment on above: Result Comment: IG% - Immature Granulocytes (promyelocytes, myelocytes andmetamyelocytes) > 1% indicates that a LEFT SHIFT is Present. Performed By: #### L 100.0100, L500.2500 ####[facility] [address] [place], [address] Lymphocytes/100 WBC (Bld) 39.2 % Normal 19-41 [facility] Comment on above: Performed By: #### L 100.0100, L500.2500 ####[facility] [address] [place], [address] MCH (RBC) [Entitic mass] 26.4 pg Low 27.0-32.0 [facility] Comment on above: Performed By: #### L 100.0100, L500.2500 ####[facility] [address] [place], [address] MCHC (RBC) [Mass/Vol] 30.5 g/dL Low 32-36 [facility] Comment on above: Performed By: #### L 100.0100, L500.2500 ####[facility] [address] [place], [address] MCV (RBC) [Entitic vol] 86.4 fL Normal 81-99 [facility] Comment on above: Performed By: #### L 100.0100, L500.2500 ####[facility] [address] [place], [address] Monocytes/100 WBC (Bld) 5.6 % Normal 0-10 [facility] Comment on above: Performed By: #### L 100.0100, L500.2500 ####[facility] [address] [place], [address] Neutrophils/100 WBC (Bld) 52.2 % Normal 47-70 [facility] Comment on above: Performed By: #### L 100.0100, L500.2500 ####[facility] [address] [place], [address] Nucleated RBC (Bld) [#/Vol] 0 10*3/uL Normal 0-5 [facility] Comment on above: Performed By: #### L 100.0100, L500.2500 ####[facility] [address] [place], [address] Platelet mean volume (Bld) [Entitic vol] 10.6 fL Normal 6.2-12.0 [facility] Comment on above: Performed By: #### L 100.0100, L500.2500 ####[facility] [address] [place], [address] Platelets (Bld) [#/Vol] 180 10*3/uL Normal 150-450 [facility] Comment on above: Performed By: #### L 100.0100, L500.2500 ####[facility] [address] [place], [address] RBC (Bld) [#/Vol] 4.25 10*6/uL Normal 4.2-5.4 [facility] Comment on above: Performed By: #### L 100.0100, L500.2500 ####[facility] [address] [place], [address] RDW SD 49.4 fl High 35.1-43.9 [facility] Comment on above: Performed By: #### L 100.0100, L500.2500 ####[facility] [address] [place], [address] WBC (Bld) [#/Vol] 6.6 10*3/uL Normal 4.4-11.0 [facility] Comment on above: Performed By: #### L 100.0100, L500.2500 ####[facility] [address] [place], [address] Urinalysis, Completeon 03-06 BACTERIA 1+ /hpf Normal None Seen [facility] Comment on above: Order Comment: CLEAN CATCH Performed By: #### L 400.0001 ####[facility] [address] [place], [address] CAST,FINE GRAN 0 SEEN Normal 0-5 [facility] Comment on above: Order Comment: CLEAN CATCH Performed By: #### L 400.0001 ####[facility] [address] [place], [address] RBC > 100 SEEN Normal 0-5 [facility] Comment on above: Order Comment: CLEAN CATCH Performed By: #### L 400.0001 ####[facility] [address] [place], [address] WBC 50-100 SEEN Normal 0-5 [facility] Comment on above: Order Comment: CLEAN CATCH Performed By: #### L 400.0001 ####[facility] [address] [place], [address] BILIRUBIN URINE Negative Normal Negative [facility] Comment on above: Order Comment: CLEAN CATCH Performed By: #### L 400.0001 ####[facility] [address] [place], [address] Clarity (U) Cloudy Normal Clear [facility] Comment on above: Order Comment: CLEAN CATCH Performed By: #### L 400.0001 ####[facility] [address] [place], [address] Color (U) Yellow Normal Yellow [facility] Comment on above: Order Comment: CLEAN CATCH Performed By: #### L 400.0001 ####[facility] [address] [place], [address] GLUCOSE, UR Normal Normal Normal [facility] Comment on above: Order Comment: CLEAN CATCH Performed By: #### L 400.0001 ####[facility] [address] [place], [address] KETONE UR Negative Normal Negative [facility] Comment on above: Order Comment: CLEAN CATCH Performed By: #### L 400.0001 ####[facility] [address] [place] [id number] LEUK ESTERASE 500 /ul Abnormal Negative [facility] Comment on above: Order Comment: CLEAN CATCH Performed By: #### L 400.0001 ####[facility] [address] [place] [address] Nitrite Ql (U) Negative Normal Negative [facility] Comment on above: Order Comment: CLEAN CATCH Performed By: #### L 400.0001 ####[facility] [address] [place], [address] OCCULT BLOOD-UR 150 /ul Abnormal Negative [facility] Comment on above: Order Comment: CLEAN CATCH Performed By: #### L 400.0001 ####[facility] [address] [place] [id number] pH UR 6.0 Normal 5.0 - 8.0 [facility] Comment on above: Order Comment: CLEAN CATCH Performed By: #### L 400.0001 ####[facility] [address] [place] [id number] PROT DIPSTX Negative Normal Negative [facility] Comment on above: Order Comment: CLEAN CATCH Performed By: #### L 400.0001 ####[facility] [address] [facility] [address] SP.GR. DIPSTX 1.025 Normal 1.002-1.030 [facility] Comment on above: Order Comment: CLEAN CATCH Performed By: #### L 400.0001 ####[facility] [address] [place], [address] UROBILI Normal Normal Normal [facility] Comment on above: Order Comment: CLEAN CATCH Performed By: #### L 400.0001 ####[facility] [address] [place], [address] EPI,SQUAMOUS 0 SEEN Normal 5-10 [facility] Comment on above: Order Comment: CLEAN CATCH Performed By: #### L 400.0001 ####[facility] [address] [place], [address] Mucus Ql (Urine sed) 0 SEEN Normal [facility] Comment on above: Order Comment: CLEAN CATCH Performed By: #### L 400.0001 ####[facility] [address] [place], [address] Bedside Glucoseon 03-05-2024 FINGERSTICK GLU 223 mg/dL High 74-106 [facility] Comment on above: Result Comment: ESPERANZA GEMENT OF PATIENT CARE PER NURSING PROTOCOL Performed By: #### L 501.080 ####[facility] [address] [place], [address] FINGERSTICK GLU 257 mg/dL High 74-106 [facility] Comment on above: Result Comment: ESPERANZA GEMENT OF PATIENT CARE PER NURSING PROTOCOL Performed By: #### L 501.080 ####[facility] [address] [place], [address] FINGERSTICK GLU 189 mg/dL High 74-106 [facility] Comment on above: Result Comment: ESPERANZA GEMENT OF PATIENT CARE PER NURSING PROTOCOL Performed By: #### L 501.080 ####[facility] [address] [place], [address] FINGERSTICK GLU 138 mg/dL High 74-106 [facility] Comment on above: Result Comment: ESPERANZA GEMENT OF PATIENT CARE PER NURSING PROTOCOL Performed By: #### L 501.080 ####[facility] [address] [place], [address] FINGERSTICK GLU 272 mg/dL High 74-106 [facility] Comment on above: Result Comment: ESPERANZA GEMENT OF PATIENT CARE PER NURSING PROTOCOL Performed By: #### L 501.080 ####[facility] [address] [place], [address] CBC W/Diff, Automatedon 02-19 Absolute Lymph 1.15 X10 3/uL Normal 0.83-4.51 [facility] Comment on above: Performed By: #### L 501.5200, L501.9985, L500.4050, L501.9520, L100.0100 ####[facility] [address] [place], [address] Absolute Neut 4.6 X10 3/uL Normal 2.0-7.7 [facility] Comment on above: Performed By: #### L 501.5200, L501.9985, L500.4050, L501.9520, L100.0100 ####[facility] [address] [place], [address] Basophils/100 WBC (Bld) 1.1 % High 0-1 [facility] Comment on above: Performed By: #### L 501.5200, L501.9985, L500.4050, L501.9520, L100.0100 ####[facility] [address] [place], [address] Eosinophils/100 WBC (Bld) 0.2 % Normal 0-5 [facility] Comment on above: Performed By: #### L 501.5200, L501.9985, L500.4050, L501.9520, L100.0100 ####[facility] [address] [place], [address] Erythrocyte distribution width (RBC) [Ratio] 15.9 % High 11.6-14.6 [facility] Comment on above: Performed By: #### L 501.5200, L501.9985, L500.4050, L501.9520, L100.0100 ####[facility] [address] [place], [address] Hematocrit (Bld) [Volume fraction] 38.8 % Normal 37-47 [facility] Comment on above: Performed By: #### L 501.5200, L501.9985, L500.4050, L501.9520, L100.0100 ####[facility] [address] [place], [address] Hemoglobin (Bld) [Mass/Vol] 11.8 g/dL Low 12.0-15.0 [facility] Comment on above: Performed By: #### L 501.5200, L501.9985, L500.4050, L501.9520, L100.0100 ####[facility] [address] [place], [address] IG% 1.700 High 0.0-0.9 [facility] Comment on above: Result Comment: IG% - Immature Granulocytes (promyelocytes, myelocytes andmetamyelocytes) > 1% indicates that a LEFT SHIFT is Present. Performed By: #### L 501.5200, L501.9985, L500.4050, L501.9520, L100.0100 ####[facility] [address] [place], [address] Lymphocytes/100 WBC (Bld) 18.0 % Low 19-41 [facility] Comment on above: Performed By: #### L 501.5200, L501.9985, L500.4050, L501.9520, L100.0100 ####[facility] [address] [place], [address] MCH (RBC) [Entitic mass] 26.5 pg Low 27.0-32.0 [facility] Comment on above: Performed By: #### L 501.5200, L501.9985, L500.4050, L501.9520, L100.0100 ####[facility] [address] [place], [address] MCHC (RBC) [Mass/Vol] 30.4 g/dL Low 32-36 [facility] Comment on above: Performed By: #### L 501.5200, L501.9985, L500.4050, L501.9520, L100.0100 ####[facility] [address] [place], [address] MCV (RBC) [Entitic vol] 87.0 fL Normal 81-99 [facility] Comment on above: Performed By: #### L 501.5200, L501.9985, L500.4050, L501.9520, L100.0100 ####[facility] [address] [place], [address] Monocytes/100 WBC (Bld) 7.2 % Normal 0-10 [facility] Comment on above: Performed By: #### L 501.5200, L501.9985, L500.4050, L501.9520, L100.0100 ####[facility] [address] [place], [address] Neutrophils/100 WBC (Bld) 71.8 % High 47-70 [facility] Comment on above: Performed By: #### L 501.5200, L501.9985, L500.4050, L501.9520, L100.0100 ####[facility] [address] [place], [address] Nucleated RBC (Bld) [#/Vol] 0 10*3/uL Normal 0-5 [facility] Comment on above: Performed By: #### L 501.5200, L501.9985, L500.4050, L501.9520, L100.0100 ####[facility] [address] [place], [address] Platelet mean volume (Bld) [Entitic vol] 10.5 fL Normal 6.2-12.0 [facility] Comment on above: Performed By: #### L 501.5200, L501.9985, L500.4050, L501.9520, L100.0100 ####[facility] [address] [place], [address] Platelets (Bld) [#/Vol] 180 10*3/uL Normal 150-450 [facility] Comment on above: Performed By: #### L 501.5200, L501.9985, L500.4050, L501.9520, L100.0100 ####[facility] [address] [place], [address] RBC (Bld) [#/Vol] 4.46 10*6/uL Normal 4.2-5.4 [facility] Comment on above: Performed By: #### L 501.5200, L501.9985, L500.4050, L501.9520, L100.0100 ####[facility] [address] [place], [address] RDW SD 49.7 fl High 35.1-43.9 [facility] Comment on above: Performed By: #### L 501.5200, L501.9985, L500.4050, L501.9520, L100.0100 ####[facility] [address] [place], [address] WBC (Bld) [#/Vol] 6.4 10*3/uL Normal 4.4-11.0 [facility] Comment on above: Performed By: #### L 501.5200, L501.9985, L500.4050, L501.9520, L100.0100 ####[facility] [address] [place], [address] Comprehensive Metabolic Prof ilon 03-05-2024 Albumin [Mass/Vol] 2.7 g/dL Low 3.2-5.0 [facility] Comment on above: Performed By: #### L 501.5200, L501.9985, L500.4050, L501.9520, L100.0100 ####[facility] [address] [place], [address] Albumin/Globulin [Mass ratio] 0.5 {ratio} Low 0.9-2.4 [facility] Comment on above: Performed By: #### L 501.5200, L501.9985, L500.4050, L501.9520, L100.0100 ####[facility] [address] [place], [address] ALK P 164 U/L High 45-117 [facility] Comment on above: Performed By: #### L 501.5200, L501.9985, L500.4050, L501.9520, L100.0100 ####[facility] [address] [place], [address] ALT [Catalytic activity/Vol] 50 U/L Normal 13-56 [facility] Comment on above: Performed By: #### L 501.5200, L501.9985, L500.4050, L501.9520, L100.0100 ####[facility] [address] [place], [address] AST [Catalytic activity/Vol] 75 U/L High 15-37 [facility] Comment on above: Performed By: #### L 501.5200, L501.9985, L500.4050, L501.9520, L100.0100 ####[facility] [address] [place], [address] Bilirubin [Mass/Vol] 0.40 mg/dL Normal 0.20-1.00 [facility] Comment on above: Result Comment: For patients on eltrombopag therapy, use of Dimension [place] TBIL is not recommended. Performed By: #### L 501.5200, L501.9985, L500.4050, L501.9520, L100.0100 ####[facility] [address] [place], [address] BUN/CRE 18.7 RATIO Normal 10-20 [facility] Comment on above: Performed By: #### L 501.5200, L501.9985, L500.4050, L501.9520, L100.0100 ####[facility] [address] [place], [address] CA,Total 8.8 mg/dL Normal 8.5-10.1 [facility] Comment on above: Performed By: #### L 501.5200, L501.9985, L500.4050, L501.9520, L100.0100 ####[facility] [address] [place], [address] Chloride [Moles/Vol] 102 mmol/L Normal 98-107 [facility] Comment on above: Performed By: #### L 501.5200, L501.9985, L500.4050, L501.9520, L100.0100 ####[facility] [address] [place], [address] CO2 [Moles/Vol] 30.0 mmol/L Normal 21.0-32.0 [facility] Comment on above: Performed By: #### L 501.5200, L501.9985, L500.4050, L501.9520, L100.0100 ####[facility] [address] [place], [address] Creatinine [Mass/Vol] 0.70 mg/dL Normal 0.55-1.02 [facility] Comment on above: Result Comment: The validity of the calculated GFR GFRAA in patients over70 years has not been determined. Clinical correlation isessential. Performed By: #### L 501.5200, L501.9985, L500.4050, L501.9520, L100.0100 ####[facility] [address] [place], [address] ECRCL 101.68 ml/min Normal [facility] Comment on above: Performed By: #### L 501.5200, L501.9985, L500.4050, L501.9520, L100.0100 ####[facility] [address] [place], [address] EST GFR - AA 112 mL/min Normal >60 [facility] Comment on above: Result Comment: Afri can [place] GFR Calc Performed By: #### L 501.5200, L501.9985, L500.4050, L501.9520, L100.0100 ####[facility] [address] [place], [address] GAP 3 Low 5-15 [facility] Comment on above: Performed By: #### L 501.5200, L501.9985, L500.4050, L501.9520, L100.0100 ####[facility] [address] [place], [address] GFR/1.73 sq M.predicted among non-blacks MDRD (S/P/Bld) [Vol rate/Area] 92 mL/min/{1.73_m2} Normal >60 [facility] Comment on above: Result Comment: Non- GFR Calc Performed By: #### L 501.5200, L501.9985, L500.4050, L501.9520, L100.0100 ####[facility] [address] [place], [address] Globulin (S) [Mass/Vol] 5.6 g/dL High 2.2-4.2 [facility] Comment on above: Performed By: #### L 501.5200, L501.9985, L500.4050, L501.9520, L100.0100 ####[facility] [address] [place], [address] Glucose [Mass/Vol] 158 mg/dL High 74-106 [facility] Comment on above: Result Comment: Fast ing Glucose result greater than or equal to 126 mg/dLsuggests DIABETES MELLITUS per A.D.A. criteria. Performed By: #### L 501.5200, L501.9985, L500.4050, L501.9520, L100.0100 ####[facility] [address] [place], [address] Potassium [Moles/Vol] 4.4 mmol/L Normal 3.5-5.1 [facility] Comment on above: Performed By: #### L 501.5200, L501.9985, L500.4050, L501.9520, L100.0100 ####[facility] [address] [place], [address] Sodium [Moles/Vol] 135 mmol/L Low 136-145 [facility] Comment on above: Performed By: #### L 501.5200, L501.9985, L500.4050, L501.9520, L100.0100 ####[facility] [address] [place], [address] T PROT 8.3 g/dL High 6.4-8.2 [facility] Comment on above: Performed By: #### L 501.5200, L501.9985, L500.4050, L501.9520, L100.0100 ####[facility] [address] [place], [address] Urea nitrogen [Mass/Vol] 13 mg/dL Normal 7-18 [facility] Comment on above: Performed By: #### L 501.5200, L501.9985, L500.4050, L501.9520, L100.0100 ####[facility] [address] [place], [address] Hemoglobin A1con 03-05-2024 HbA1c (Bld) [Mass fraction] 12.8 % High 3.8-5.6 [facility] Comment on above: Result Comment: Norm al < 5.7 % Prediabetic 5.7 - 6.4 % Diabetic >or= 6.5 % Please note range changes. Performed By: #### L 501.5200, L501.9985, L500.4050, L501.9520, L100.0100 ####[facility] [address] [place], [address] Magnesiumon 03-05-2024 Magnesium [Mass/Vol] 1.8 mg/dL Normal 1.6-2.6 [facility] Comment on above: Performed By: #### L 501.5200, L501.9985, L500.4050, L501.9520, L100.0100 ####[facility] [address] [place], [address] Thyroid Stim Hormone (TSH)on 03-05-2024 TSH 5.970 uIU/mL High 0.358-3.740 [facility] Comment on above: Performed By: #### L 501.5200, L501.9985, L500.4050, L501.9520, L100.0100 ####[facility] [address] [place], [address] Urine Cultureon 03-05-2024 URC Culture exhibits no growth. Normal [facility] Comment on above: Performed By: #### M 100.2200 ####[facility] [address] [place], [address] Abdomen/Pelvis without Conto n 03-04-2024 Abdomen/Pelvis without Cont Normal [facility] BNP,B-Type NATRIURETIC PEPTI Lucila 03-04-2024 Natriuretic peptide B (Bld) [Mass/Vol] 24.0 pg/mL Normal 0-100 [facility] Comment on above: Performed By: #### L 300.4700, L503.6005, L509.7000, L300.3900, L501.3620, L300.8000, L504.2610, L503.6620, L501.6710 ####[facility] [address] [place], [address] Basic Metabolic Profile (BMP )on 03-04-2024 BUN/CRE 12.6 RATIO Normal 10-20 [facility] Comment on above: Performed By: #### L 503.6005, L501.3620, L500.3400, L500.2500, L100.0500, L501.2450 ####[facility] [address] [place], [address] CA,Total 9.4 mg/dL Normal 8.5-10.1 [facility] Comment on above: Performed By: #### L 503.6005, L501.3620, L500.3400, L500.2500, L100.0500, L501.2450 ####[facility] [address] [place], [address] Chloride [Moles/Vol] 95 mmol/L Low 98-107 [facility] Comment on above: Performed By: #### L 503.6005, L501.3620, L500.3400, L500.2500, L100.0500, L501.2450 ####[facility] [address] [place], [address] CO2 [Moles/Vol] 29.0 mmol/L Normal 21.0-32.0 [facility] Comment on above: Performed By: #### L 503.6005, L501.3620, L500.3400, L500.2500, L100.0500, L501.2450 ####[facility] [address] [place], [address] Creatinine [Mass/Vol] 0.95 mg/dL Normal 0.55-1.02 [facility] Comment on above: Result Comment: The validity of the calculated GFR GFRAA in patients over70 years has not been determined. Clinical correlation isessential. Performed By: #### L 503.6005, L501.3620, L500.3400, L500.2500, L100.0500, L501.2450 ####[facility] [address] [place], [address] ECRCL 74.68 ml/min Normal [facility] Comment on above: Performed By: #### L 503.6005, L501.3620, L500.3400, L500.2500, L100.0500, L501.2450 ####[facility] [address] [place], [address] EST GFR - AA 78 mL/min Normal >60 [facility] Comment on above: Result Comment: Afri can [place] GFR Calc Performed By: #### L 503.6005, L501.3620, L500.3400, L500.2500, L100.0500, L501.2450 ####[facility] [address] [place], [address] GAP 6 Normal 5-15 [facility] Comment on above: Performed By: #### L 503.6005, L501.3620, L500.3400, L500.2500, L100.0500, L501.2450 ####[facility] [address] [place], [address] GFR/1.73 sq M.predicted among non-blacks MDRD (S/P/Bld) [Vol rate/Area] 65 mL/min/{1.73_m2} Normal >60 [facility] Comment on above: Result Comment: Non- GFR Calc Performed By: #### L 503.6005, L501.3620, L500.3400, L500.2500, L100.0500, L501.2450 ####[facility] [address] [place], [address] Glucose [Mass/Vol] 329 mg/dL High 74-106 [facility] Comment on above: Result Comment: Gluc ose result greater than or equal to 200 mg/dLsuggests DIABETES MELLITUS per A.D.A. criteria. Performed By: #### L 503.6005, L501.3620, L500.3400, L500.2500, L100.0500, L501.2450 ####[facility] [address] [place], [address] Potassium [Moles/Vol] 4.1 mmol/L Normal 3.5-5.1 [facility] Comment on above: Performed By: #### L 503.6005, L501.3620, L500.3400, L500.2500, L100.0500, L501.2450 ####[facility] [address] [place], [address] Sodium [Moles/Vol] 130 mmol/L Low 136-145 [facility] Comment on above: Performed By: #### L 503.6005, L501.3620, L500.3400, L500.2500, L100.0500, L501.2450 ####[facility] [address] [place], [address] Urea nitrogen [Mass/Vol] 12 mg/dL Normal 7-18 [facility] Comment on above: Performed By: #### L 503.6005, L501.3620, L500.3400, L500.2500, L100.0500, L501.2450 ####[facility] [address] [place], [address] Bedside Glucoseon 03-04-2024 FINGERSTICK GLU 333 mg/dL High 74-106 [facility] Comment on above: Result Comment: ESPERANZA VILLALTA OF PATIENT CARE PER NURSING PROTOCOL Performed By: #### L 501.080 ####[facility] [address] [place], [address] CBC-Complete Blood Cnt No Di ffon 03-04-2024 Erythrocyte distribution width (RBC) [Ratio] 16.1 % High 11.6-14.6 [facility] Comment on above: Performed By: #### L 503.6005, L501.3620, L500.3400, L500.2500, L100.0500, L501.2450 ####[facility] [address] [place], [address] Hematocrit (Bld) [Volume fraction] 42.7 % Normal 37-47 [facility] Comment on above: Performed By: #### L 503.6005, L501.3620, L500.3400, L500.2500, L100.0500, L501.2450 ####[facility] [address] [place], [address] Hemoglobin (Bld) [Mass/Vol] 13.5 g/dL Normal 12.0-15.0 [facility] Comment on above: Performed By: #### L 503.6005, L501.3620, L500.3400, L500.2500, L100.0500, L501.2450 ####[facility] [address] [place], [address] MCH (RBC) [Entitic mass] 26.8 pg Low 27.0-32.0 [facility] Comment on above: Performed By: #### L 503.6005, L501.3620, L500.3400, L500.2500, L100.0500, L501.2450 ####[facility] [address] [place], [address] MCHC (RBC) [Mass/Vol] 31.6 g/dL Low 32-36 [facility] Comment on above: Performed By: #### L 503.6005, L501.3620, L500.3400, L500.2500, L100.0500, L501.2450 ####[facility] [address] [place], [address] MCV (RBC) [Entitic vol] 84.7 fL Normal 81-99 [facility] Comment on above: Performed By: #### L 503.6005, L501.3620, L500.3400, L500.2500, L100.0500, L501.2450 ####[facility] [address] [place], [address] Platelet mean volume (Bld) [Entitic vol] 10.9 fL Normal 6.2-12.0 [facility] Comment on above: Performed By: #### L 503.6005, L501.3620, L500.3400, L500.2500, L100.0500, L501.2450 ####[facility] [address] [place], [address] Platelets (Bld) [#/Vol] 231 10*3/uL Normal 150-450 [facility] Comment on above: Performed By: #### L 503.6005, L501.3620, L500.3400, L500.2500, L100.0500, L501.2450 ####[facility] [address] [place], [address] RBC (Bld) [#/Vol] 5.04 10*6/uL Normal 4.2-5.4 [facility] Comment on above: Performed By: #### L 503.6005, L501.3620, L500.3400, L500.2500, L100.0500, L501.2450 ####[facility] [address] [place], [address] RDW SD 48.9 fl High 35.1-43.9 [facility] Comment on above: Performed By: #### L 503.6005, L501.3620, L500.3400, L500.2500, L100.0500, L501.2450 ####[facility] [address] [place], [address] WBC (Bld) [#/Vol] 7.4 10*3/uL Normal 4.4-11.0 [facility] Comment on above: Performed By: #### L 503.6005, L501.3620, L500.3400, L500.2500, L100.0500, L501.2450 ####[facility] [address] [place], [address] CPK Total, Creatine Kinaseon 03-04-2024 CPK TOTAL 135 U/L Normal - [facility] Comment on above: Performed By: #### L 300.4700, L503.6005, L509.7000, L300.3900, L501.3620, L300.8000, L504.2610, L503.6620, L501.6710 ####[facility] [address] [place], [address] CPK TOTAL 148 U/L Normal - [facility] Comment on above: Performed By: #### L 503.6005, L501.3620, L500.3400, L500.2500, L100.0500, L501.2450 ####[facility] [address] [place], [address] CRPon 03-04-2024 C-REACTIVE PROT 28.80 mg/L High 0.0-3.0 [facility] Comment on above: Result Comment: C-Re active Protein (CRP) provides useful information for thediagnosis, therapy and monitoring of inflammatory processesand associated diseases. For the evaluation of Relative Riskfor Cardiovascular Disease, a High Sensitivity CRP (HSCRP)should be ordered. Performed By: #### L 300.4700, L503.6005, L509.7000, L300.3900, L501.3620, L300.8000, L504.2610, L503.6620, L501.6710 ####[facility] [address] [place], [place], [address] Chest 1 View (Portable)on Chest 1 View (Portable) Normal [facility] D-Dimer Quantitative (DVT/PE )on 03-04-2024 D-DIMER QUANT 0.39 FEU/ug/m Normal 0.27-0.49 [facility] Comment on above: Result Comment: NORM AL D-Dimer level (<0.50) indicates no DVT or PE. Performed By: #### L 300.4700, L503.6005, L509.7000, L300.3900, L501.3620, L300.8000, L504.2610, L503.6620, L501.6710 ####[facility] [address] [place], [place], [address] Emergency Department Summary on 03-04-2024 Emergency Department Summary Normal [facility] Fibrinogenon 03-04-2024 FIBRINOGEN 444 mg/dl Normal 203-4 [facility] Comment on above: Performed By: #### L 300.4700, L503.6005, L509.7000, L300.3900, L501.3620, L300.8000, L504.2610, L503.6620, L501.6710 ####[facility] [address] [place], [address] H AND P Exam - Hospitaliston 03-04-2024 H&P Exam - Hospitalist Normal [facility] LDHon 03-04-2024 LDH 199 U/L Normal 84-246 [facility] Comment on above: Performed By: #### L 300.4700, L503.6005, L509.7000, L300.3900, L501.3620, L300.8000, L504.2610, L503.6620, L501.6710 ####[facility] [address] [place], [place], [address] Lactic Acidon 03-04-2024 Lactate [Moles/Vol] 1.6 mmol/L Normal 0.4-1.9 [facility] Comment on above: Order Comment: Y Performed By: #### L 300.4700, L503.6005, L509.7000, L300.3900, L501.3620, L300.8000, L504.2610, L503.6620, L501.6710 ####[facility] [address] [place], [place], [address] Lactate [Moles/Vol] 1.5 mmol/L Normal 0.4-1.9 [facility] Comment on above: Order Comment: Y Performed By: #### L 503.6005, L501.3620, L500.3400, L500.2500, L100.0500, L501.2450 ####[facility] [address] [place], [place], [address] Lipaseon 03-04-2024 Lipase [Catalytic activity/Vol] 59 U/L Normal 13-75 [facility] Comment on above: Result Comment: Ronnie mcleod note:LIPASE revised reference range effective 22.New Lipase methodology. Expected to produce lower valuesthan the previous assay method.NEW Reference Range: 13 - 75 U/L Performed By: #### L 503.6005, L501.3620, L500.3400, L500.2500, L100.0500, L501.2450 ####[facility] [address] [place], [address] Liver Profileon 03-04-2024 Albumin [Mass/Vol] 3.2 g/dL Normal 3.2-5.0 [facility] Comment on above: Performed By: #### L 503.6005, L501.3620, L500.3400, L500.2500, L100.0500, L501.2450 ####[facility] [address] [place], [address] ALK P 237 U/L High 45-117 [facility] Comment on above: Performed By: #### L 503.6005, L501.3620, L500.3400, L500.2500, L100.0500, L501.2450 ####[facility] [address] [place], [address] ALT [Catalytic activity/Vol] 43 U/L Normal 13-56 [facility] Comment on above: Performed By: #### L 503.6005, L501.3620, L500.3400, L500.2500, L100.0500, L501.2450 ####[facility] [address] [place], [address] AST [Catalytic activity/Vol] 57 U/L High 15-37 [facility] Comment on above: Performed By: #### L 503.6005, L501.3620, L500.3400, L500.2500, L100.0500, L501.2450 ####[facility] [address] [place], [address] Bilirubin [Mass/Vol] 0.90 mg/dL Normal 0.20-1.00 [facility] Comment on above: Result Comment: For patients on eltrombopag therapy, use of Dimension [place] TBIL is not recommended. Performed By: #### L 503.6005, L501.3620, L500.3400, L500.2500, L100.0500, L501.2450 ####[facility] [address] [place], [address] Bilirubin.direct [Mass/Vol] 0.25 mg/dL Normal 0.00-0.30 [facility] Comment on above: Performed By: #### L 503.6005, L501.3620, L500.3400, L500.2500, L100.0500, L501.2450 ####[facility] [address] [place], [address] Globulin (S) [Mass/Vol] 6.1 g/dL High 2.2-4.2 [facility] Comment on above: Performed By: #### L 503.6005, L501.3620, L500.3400, L500.2500, L100.0500, L501.2450 ####[facility] [address] [place], [address] T PROT 9.3 g/dL High 6.4-8.2 [facility] Comment on above: Performed By: #### L 503.6005, L501.3620, L500.3400, L500.2500, L100.0500, L501.2450 ####[facility] [address] [place], [address] M100.678on 03-04-2024 M100.678 Normal [facility] Comment on above: Performed By: #### M 100.678 ####[facility] [address] [place], [address] Procalcitoninon 03-04-2024 Procalcitonin 0.10 ng/mL High 0.00-0.09 [facility] Comment on above: Result Comment: [...] L509.7000, L300.3900, L501.3620, L300.8000, L504.2610, L503.6620, L501.6710 ####[facility] [address] [address]. [place], [place], [id number] Prothrombin Time w/INRon INR Coag (PPP) [Relative time] 1.2 {INR} Normal [facility] Comment on above: Performed By: #### L 300.4700, L503.6005, L509.7000, L300.3900, L501.3620, L300.8000, L504.2610, L503.6620, L501.6710 ####[facility] [id number] [place], [place], [id number] PT Coag (PPP) [Time] 15.3 s High 11.7-14.9 [facility] Comment on above: Performed By: #### L 300.4700, L503.6005, L509.7000, L300.3900, L501.3620, L300.8000, L504.2610, L503.6620, L501.6710 ####[facility] [id number] [place], [place], [id number] Urinalysis, Completeon 03-04 EPI,SQUAMOUS 5-10 SEEN Normal 5-10 [facility] Comment on above: Order Comment: COLLE CTOR TO SPECIFY Performed By: #### L 400.0001 ####[facility] [address] [place], [address] BACTERIA 1+ /hpf Normal None Seen [facility] Comment on above: Order Comment: TESSIE CTOR TO SPECIFY Performed By: #### L 400.0001 ####[facility] [address] [place], [address] WBC >100 SEEN Normal 0-5 [facility] Comment on above: Order Comment: TESSIE CTOR TO SPECIFY Performed By: #### L 400.0001 ####[facility] [address] [place], [address] YEAST 3+ /hpf Normal None Seen [facility] Comment on above: Order Comment: TESSIE CTOR TO SPECIFY Performed By: #### L 400.0001 ####[facility] [address] [place], [address] Mucus Ql (Urine sed) 0 SEEN Normal [facility] Comment on above: Order Comment: TESSIE CTOR TO SPECIFY Performed By: #### L 400.0001 ####[facility] [address] [place], [address] RBC 0 SEEN Normal 0-5 [facility] Comment on above: Order Comment: TESSIE CTOR TO SPECIFY Performed By: #### L 400.0001 ####[facility] [address] [place], [address] .GFRon 03-02-2024 GFR Non- 75 ml/min/1.73sqm Normal [facility] ([place]) Comment on above: Result Comment: GFR Population [...] By: #### T SH, CMP, GFR #### [address] [address] GFR 91 ml/min/1.73sqm Normal [facility] ([place]) Comment on above: Result Comment: GFR Population [...] By: #### T SH, CMP, GFR #### [address] [address] CMPon 03-02-2024 Albumin Level 3.0 G/dL Low 3.5-5.0 [facility] ([place]) Comment on above: Performed By: #### T SH, CMP, GFR #### [address] [address] Albumin/Globulin [Mass ratio] 0.6 {ratio} Low 1.1-2.5 [facility] ([place]) Comment on above: Performed By: #### T SH, CMP, GFR #### [address] [address] ALP [Catalytic activity/Vol] 216 U/L High 40-135 [facility] ([place]) Comment on above: Performed By: #### T SH, CMP, GFR #### [address] [address] ALT [Catalytic activity/Vol] 34 U/L Normal 14-59 [facility] ([place]) Comment on above: Performed By: #### T GIOVANNA, CMP, GFR #### [address] [address] AST [Catalytic activity/Vol] 27 U/L Normal 10-40 [facility] ([place]) Comment on above: Performed By: #### T GIOVANNA, CMP, GFR #### [address] [address] Bili Total 0.7 mg/dL Normal 0.2-1.0 [facility] ([place]) Comment on above: Result Comment: Use of this assay is not recommended for patients undergoing treatment with eltrombopag due to the potential for falsely elevated results. Performed By: #### T GIOVANNA, CMP, GFR #### [address] [address] BUN/Creatinine Ratio 13 ratio Normal 7-27 [facility] ([place]) Comment on above: Performed By: #### T GIOVANNA, CMP, GFR #### [address] [address] Calcium [Mass/Vol] 9.4 mg/dL Normal 8.4-10.2 [facility] ([place]) Comment on above: Performed By: #### T GIOVANNA, CMP, GFR #### [address] [address] Chloride [Moles/Vol] 93 mmol/L Low 98-107 [facility] ([place]) Comment on above: Performed By: #### T GIOVANNA, CMP, GFR #### [address] [address] CO2 [Moles/Vol] 33 mmol/L High 22-29 [facility] ([place]) Comment on above: Performed By: #### T GIOVANNA, CMP, GFR #### [address] [address] Creatinine [Mass/Vol] 0.79 mg/dL Normal 0.55-1.02 [facility] ([place]) Comment on above: Performed By: #### T GIOVANNA, CMP, GFR #### [address] [address] Electrolyte Balance 3.0 mEq/L Low 4.0-15.0 [facility] ([place]) Comment on above: Performed By: #### T GIOVANNA CMP, GFR #### [address] [address] Globulin 5.0 G/dL Normal [facility] ([place]) Comment on above: Performed By: #### T GIOVANNA CMP, GFR #### [address] [address] Glucose [Mass/Vol] 484 mg/dL Critically abnormal 70-105 [facility] ([place]) Comment on above: Performed By: #### T GIOVANNA CMP, GFR #### [address] [address] Potassium [Moles/Vol] 4.8 mmol/L Normal 3.5-5.1 [facility] ([place]) Comment on above: Performed By: #### T GIOVANNA CMP, GFR #### [address] [address] Sodium [Moles/Vol] 129 mmol/L Low 136-145 [facility] ([place]) Comment on above: Performed By: #### T GIOVANNA CMP, GFR #### [address] [address] Total Protein 8.0 G/dL Normal 6.4-8.2 [facility] ([place]) Comment on above: Performed By: #### T GIOVANNA CMP, GFR #### [address] [address] Urea nitrogen [Mass/Vol] 10 mg/dL Normal 7-18 [facility] ([place]) Comment on above: Performed By: #### T GIOVANNA CMP, GFR #### [address] [address] LABORATORYOrdered By: SYSTEM SYSTEM on 03-02-2024 Albumin [...] 03-02-2024 TSH Qn 37.38 m[IU]/L High 0.36-3.74 [facility] ([place]) Comment on above: Performed By: #### T SH, CMP, GFR #### [address] [address] .Auto Diffon 02-25-2024 Basophil, Absolute 0.1 10 3/mcL Normal 0.0-0.2 [facility] ([place]) Comment on above: Performed By: #### C MP, GFR, CBC, ADIFF, ANEU, MDW #### [address] [address] Basophils/100 WBC (Bld) 1.1 % Normal 0.0-2.5 [facility] ([place]) Comment on above: Performed By: #### C MP, GFR, CBC, ADRAVEN HUFF MDW #### [address] [address] Eosinophil, Absolute 0.2 10 3/mcL Normal 0.0-0.4 [facility] ([place]) Comment on above: Performed By: #### C MP, GFR, CBC, ADIFF, SATURNINO CARBAJAL #### [address] [address] Eosinophils/100 WBC (Bld) 2.0 % Normal 0.0-7.0 [facility] ([place]) Comment on above: Performed By: #### C MP, GFR, CBC, ADIFFRAVEN MDW #### [address] [address] Lymphocyte, Absolute 2.1 10 3/mcL Normal 0.8-3.9 [facility] ([place]) Comment on above: Performed By: #### C MP, GFR, CBC, ADRAVEN HUFF MDW #### [address] [address] Lymphocytes/100 WBC (Bld) 18.0 % Normal 10.0-50.0 [facility] ([place]) Comment on above: Performed By: #### C MP, GFR, CBC, ADRAVEN HUFF MDW #### [address] [address] Monocyte, Absolute 0.5 10 3/mcL Normal 0.2-1.0 [facility] ([place] Comment on above: Performed By: #### C MP, GFR, CBC, ADRAVEN HUFF MDW #### [address] [address] Monocytes/100 WBC (Bld) 4.6 % Normal 1.7-13.0 [facility] ([place]) Comment on above: Performed By: #### C MP, GFR, CBC, ADIFFRAVEN MDW #### [address] [address] Neutrophils/100 WBC (Bld) 74.3 % Normal 37.0-80.0 [facility] ([place]) Comment on above: Performed By: #### C MP, GFR, CBCBALTAZAR ANEU, MDW #### [place] [address] [place], [place] [address] .GFRon 02-25-2024 GFR 79 ml/min/1.73sqm Normal [facility] ([place]) Comment on above: Result Comment: GFR Population [...] MP, GFR, CBC, RAVEN LEDESMA MDW #### [address] [address] GFR Non- 65 ml/min/1.73sqm Normal [facility] ([place]) Comment on above: Result Comment: GFR Population [...] MP, GFR, CBC, ADRAVEN HUFF MDW #### [address] [address] .MDWon 02-25-2024 Monocyte Distribution Width 20.84 High 0.00-20.00 [facility] ([place]) Comment on above: Result Comment: For adults in ED, MDW>20.0 may be associated with a higher risk of sepsis during the first 12hrs of hospital admission Performed By: #### C MP, GFR, CBC, RAVEN LEDESMA MDW #### [place] [address] [address] .NEUABSon 02-25-2024 Neutrophil, Absolute 8.7 10 3/mcL High 2.9-6.2 [facility] ([place]) Comment on above: Performed By: #### C MP, GFR, CBC, RAVEN LEDESMA MDW #### [address] [address] .Urinalysis Microscopic (AO) on 02-25-2024 UA Bacteria 3+ /hpf Abnormal [facility] ([place]) Comment on above: Performed By: #### T SH, CMP, GFR #### [address] [address] UA RBC LOADED Abnormal None Seen [facility] ([place]) Comment on above: Performed By: #### T SH, CMP, GFR #### [address] [address] UA Squam Epithelial 5-10 Abnormal None Seen [facility] ([place]) Comment on above: Performed By: #### T SH, CMP, GFR #### [address] [address] UA WBC LOADED Abnormal None Seen [facility] ([place] Comment on above: Performed By: #### T SH, CMP, GFR #### [place] [address] ACTONon 02-25-2024 Acetone (s) Negative Normal Negative [facility] ([place] Comment on above: Performed By: #### C MP, GFR, CBC, RAVEN LEDESMA MDW #### [address] [address] CBCon 02-25-2024 Erythrocyte distribution width (RBC) [Ratio] 16.8 % High 11.5-14.5 [facility] ([place]) Comment on above: Performed By: #### C MP, GFR, CBCBALTAZAR ANEU, MDW #### [address] [address] Hematocrit (Bld) [Volume fraction] 41.7 % Normal 37.0-47.0 [facility] ([place]) Comment on above: Performed By: #### C MP, GFR, CBC, RAVEN LEDESMA MDW #### [address] [address] Hgb 13.3 G/dL Normal 12.0-16.0 [facility] ([place] Comment on above: Performed By: #### C MP, GFR, CBCBALTAZAR ANEU, MDW #### [address] [address] MCH (RBC) [Entitic mass] 27.3 pg Normal 27.0-31.2 [facility] ([place]) Comment on above: Performed By: #### C MP, GFR, CBCBALTAZAR ANEU, MDW #### [address] [address] MCHC 31.9 G/dL Low 33.0-37.0 [facility] ([place] Comment on above: Performed By: #### C MP, GFR, CBCBALTAZAR ANEU, MDW #### [address] [address] MCV (RBC) [Entitic vol] 85.8 fL Normal 80.0-94.0 [facility] ([place]) Comment on above: Performed By: #### C MP, GFR, CBCBALTAZAR ANEU, MDW #### [address] [address] Platelet 210 10 3/mcL Normal 130-400 [facility] ([place]) Comment on above: Performed By: #### C MP, GFR, CBCBALTAZAR ANEU, MDW #### [address] [address] Platelet mean volume (Bld) [Entitic vol] 8.5 fL Normal 7.4-10.4 [facility] ([place]) Comment on above: Performed By: #### C MP, GFR, CBC, RAVEN LEDESMA MDW #### [address] [address] RBC 4.86 10 6/mcL Normal 4.20-5.40 [facility] ([place] Comment on above: Performed By: #### C MP, GFR, CBC, RAVEN LEDESMA MDW #### [address] [address] WBC 11.7 10 3/mcL High 4.6-10.8 [facility] ([place] Comment on above: Performed By: #### C MP, GFR, CBC, RAVEN LEDESMA MDW #### [address] [address] CMPon 02-25-2024 Albumin Level 3.2 G/dL Low 3.5-5.0 [facility] ([place] Comment on above: Performed By: #### C MP, GFR, CBC, RAVEN LEDESMA MDW #### [address] [address] Albumin/Globulin [Mass ratio] 0.6 {ratio} Low 1.1-2.5 [facility] ([place] Comment on above: Performed By: #### C MP, GFR, CBC, RAVEN LEDESMA MDW #### [address] [address] ALP [Catalytic activity/Vol] 240 U/L High 40-135 [facility] ([place]) Comment on above: Performed By: #### C MP, GFR, CBC, RAVEN LEDESMA MDW #### [address] [address] ALT [Catalytic activity/Vol] 41 U/L Normal 14-59 [facility] ([place]) Comment on above: Performed By: #### C MP, GFR, CBC, RAVEN LEDESMA MDW #### [address] [address] AST [Catalytic activity/Vol] 45 U/L High 10-40 [facility] ([place] Comment on above: Performed By: #### C MP, GFR, CBC, RAVEN LEDESMA MDW #### [address] [address] Bili Total 0.8 mg/dL Normal 0.2-1.0 [facility] ([place]) Comment on above: Result Comment: Use of this assay is not recommended for patients undergoing treatment with eltrombopag due to the potential for falsely elevated results. Performed By: #### C MP, GFR, CBC, RAVEN LEDESMA MDW #### [address] [address] BUN/Creatinine Ratio 10 ratio Normal 7-27 [facility] ([place] Comment on above: Performed By: #### C MP, GFR, CBC, RAVEN LEDESMA MDW #### [address] [address] Calcium [Mass/Vol] 8.9 mg/dL Normal 8.4-10.2 [facility] ([place]) Comment on above: Performed By: #### C MP, GFR, CBC, RAVEN LEDESMA MDW #### [address] [address] Chloride [Moles/Vol] 90 mmol/L Low 98-107 [facility] ([place] Comment on above: Performed By: #### C MP, GFR, CBC, RAVEN LEDESMA MDW #### [address] [address] CO2 [Moles/Vol] 31 mmol/L High 22-29 [facility] ([place]) Comment on above: Performed By: #### C MP, GFR, CBC, ADRAVEN HUFF MDW #### [address] [address] Creatinine [Mass/Vol] 0.89 mg/dL Normal 0.55-1.02 [facility] ([place]) Comment on above: Performed By: #### C MP, GFR, CBC, RAVEN LEDESMA MDW #### [address] [address] Electrolyte Balance 7.0 mEq/L Normal 4.0-15.0 [facility] ([place]) Comment on above: Performed By: #### C MP, GFR, CBC, RAVEN LEDESMA MDW #### [address] [address] Globulin 5.5 G/dL Normal [facility] ([place] Comment on above: Performed By: #### C MP, GFR, CBCBALTAZAR ANEU, MDW #### [address] [address] Glucose [Mass/Vol] 654 mg/dL Critically abnormal 70-105 [facility] ([place] Comment on above: Performed By: #### C MP, GFR, CBCBALTAZAR ANEU, MDW #### [address] [address] Potassium [Moles/Vol] 4.8 mmol/L Normal 3.5-5.1 [facility] ([place] Comment on above: Performed By: #### C MP, GFR, CBC, RAVEN LEDESMA MDW #### [address] [address] Sodium [Moles/Vol] 128 mmol/L Low 136-145 [facility] ([place] Comment on above: Performed By: #### C MP, GFR, CBC, RAVEN LEDESMA MDW #### [address] [address] Total Protein 8.7 G/dL High 6.4-8.2 [facility] ([place]) Comment on above: Performed By: #### C MP, GFR, CBC, RAVEN LEDESMA MDW #### [address] [address] Urea nitrogen [Mass/Vol] 9 mg/dL Normal 7-18 [facility] ([place]) Comment on above: Performed By: #### C MP, GFR, CBC, ADIFF, MD RAVENW #### [facility] [address] [place], [place] [address] CT ABD/PELVIS W/ IV CONTRAST ONLYon 02-25-2024 [...] 02/25/2024 12:00:15 PM Ordering Provider: URSULA Epstein [facility] ([place]) LABORATORYOrdered By: Nazanin Recio on 02-25-2024 Glucose [Mass/Vol] 334 mg/dL High 70 - 110 mg/dL [facility] Work Phone: Glucose [Mass/Vol] 432 mg/dL Invalid Interpretation Code 70 - 110 mg/dL [facility] Work Phone: Glucose [Mass/Vol] 532 mg/dL Invalid Interpretation Code 70 - 110 mg/dL [facility] Work Phone: LABORATORYOrdered By: Arden Patel [...] SS UAon 02-25-2024 Color (U) Yellow Normal [facility] ([place]) Comment on above: Performed By: #### T SH, CMP, GFR #### [address] [address] Glucose (U) [Mass/Vol] mg/dL Abnormal Negative [facility] ([place]) Comment on above: Performed By: #### T SH, CMP, GFR #### [address] [address] Ketones Ql (U) Negative Normal Negative [facility] ([place]) Comment on above: Performed By: #### T SH, CMP, GFR #### [address] [address] UA Appear Slightly Cloudy Abnormal Clear [facility] ([place]) Comment on above: Performed By: #### T SH, CMP, GFR #### [address] [address] UA Blood Moderate Abnormal Negative [facility] ([place]) Comment on above: Performed By: #### T SH, CMP, GFR #### [address] [address] UA Leuk Est Trace Abnormal Negative [facility] ([place]) Comment on above: Performed By: #### T SH, CMP, GFR #### [address] [address] UA Nitrite Negative Normal Negative [facility] ([place] Comment on above: Performed By: #### T SH, CMP, GFR #### [address] [address] UA pH 6.0 Normal 5.0 - 8.0 [facility] ([place] Comment on above: Performed By: #### T SH, CMP, GFR #### [address] [address] UA Protein Negative Normal Negative [facility] ([place] Comment on above: Performed By: #### T SH, CMP, GFR #### [address] [address] UA Spec Grav 1.010 Abnormal 1.015-1.025 [facility] ([place]) Comment on above: Performed By: #### T SH, CMP, GFR #### [place] [id number] UA Specimen Type Clean Catch Normal [facility] ([place]) Comment on above: Performed By: #### T SH, CMP, GFR #### [address] [address] UA Urobilinogen 0.2 E.U./dL Normal 0.2-1.0 [facility] ([place]) Comment on above: Performed By: #### T SH, CMP, GFR #### [address] [address] Urobilinogen (U) [Mass/Vol] Negative Normal Negative [facility] ([place] Comment on above: Performed By: #### T SH, CMP, GFR #### [address] [address] .Auto Diffon 02-24-2024 Basophil, Absolute 0.0 10 3/mcL Normal 0.0-0.2 [facility]) Comment on above: Performed By: #### C MP, GFR, CBC, RAVEN LEDESMA MDW #### [address] [address] Basophils/100 WBC (Bld) 0.8 % Normal 0.0-2.5 [facility] ([place]) Comment on above: Performed By: #### C MP, GFR, CBC, RAVEN LEDESMA MDW #### [address] [address] Eosinophil, Absolute 0.2 10 3/mcL Normal 0.0-0.4 [facility] ([place]) Comment on above: Performed By: #### C MP, GFR, CBC, RAVEN LEDESMA MDW #### [address] [address] Eosinophils/100 WBC (Bld) 3.4 % Normal 0.0-7.0 [facility] ([place] Comment on above: Performed By: #### C MP, GFR, CBC, RAVEN LEDESMA MDW #### [address] [address] Lymphocyte, Absolute 2.0 10 3/mcL Normal 0.8-3.9 [facility] ([place]) Comment on above: Performed By: #### C MP, GFR, CBC, RAVEN LEDESMA MDW #### [address] [address] Lymphocytes/100 WBC (Bld) 32.2 % Normal 10.0-50.0 [facility] ([place] Comment on above: Performed By: #### C MP, GFR, CBC, ADRAVEN HUFF MDW #### [address] [address] Monocyte, Absolute 0.4 10 3/mcL Normal 0.2-1.0 [facility] ([place] Comment on above: Performed By: #### C MP, GFR, CBC, RAVEN LEDESMA MDW #### [address] [address] Monocytes/100 WBC (Bld) 6.0 % Normal 1.7-13.0 [facility] ([place] Comment on above: Performed By: #### C MP, GFR, CBC, ADRAVEN HUFF MDW #### [address] [address] Neutrophils/100 WBC (Bld) 57.6 % Normal 37.0-80.0 [facility] ([place] Comment on above: Performed By: #### C MP, GFR, CBC, RAVEN LEDESMA MDW #### [address] [address] .GFRon 02-24-2024 GFR 73 ml/min/1.73sqm Normal [facility] ([place] Comment on above: Result Comment: GFR Population [...] C MP, GFR, CBCBALTAZAR ANEU, MDW #### [address] [address] GFR Non- 60 ml/min/1.73sqm Normal [facility] ([place] Comment on above: Result Comment: GFR Population [...] MP, GFR, CBC, RAVEN LEDESMA MDW #### [address] [address] .NEUABSon 02-24-2024 Neutrophil, Absolute 3.7 10 3/mcL Normal 2.9-6.2 [facility] ([place]) Comment on above: Performed By: #### C MP, GFR, CBCBALTAZAR ANEU, MDW #### [address] [address] CBCon 02-24-2024 Erythrocyte distribution width (RBC) [Ratio] 16.6 % High 11.5-14.5 [facility] ([place] Comment on above: Performed By: #### C MP, GFR, CBCBALTAZAR ANEU, MDW #### [address] [address] Hematocrit (Bld) [Volume fraction] 38.2 % Normal 37.0-47.0 [facility] ([place] Comment on above: Performed By: #### C MP, GFR, CBCBALTAZAR ANEU, MDW #### [address] [address] Hgb 12.3 G/dL Normal 12.0-16.0 [facility] ([place] Comment on above: Performed By: #### C MP, GFR, CBC, RAVEN LEDESMA MDW #### [address] [address] MCH (RBC) [Entitic mass] 27.3 pg Normal 27.0-31.2 [facility] ([place] Comment on above: Performed By: #### C MP, GFR, CBC, RAVEN LEDESMA MDW #### [place] [address] MCHC 32.2 G/dL Low 33.0-37.0 [facility] ([place] Comment on above: Performed By: #### C MP, GFR, CBC, RAVEN LEDESMA MDW #### [place] [id number] MCV (RBC) [Entitic vol] 84.6 fL Normal 80.0-94.0 [facility] ([place] Comment on above: Performed By: #### C MP, GFR, CBC, RAVEN LEDESMA MDW #### [address] [address] Platelet 187 10 3/mcL Normal 130-400 [facility] ([place] Comment on above: Performed By: #### C MP, GFR, CBC, RAVEN LEDESMA MDW #### [address] [address] Platelet mean volume (Bld) [Entitic vol] 8.6 fL Normal 7.4-10.4 [facility] ([place] Comment on above: Performed By: #### C MP, GFR, CBC, RAVEN LEDESMA MDW #### [place] [id number] RBC 4.52 10 6/mcL Normal 4.20-5.40 [facility] ([place] Comment on above: Performed By: #### C MP, GFR, CBC, RAVEN LEDESMA MDW #### [address] [address] WBC 6.4 10 3/mcL Normal 4.6-10.8 [facility] ([place] Comment on above: Performed By: #### C MP, GFR, CBCBALTAZAR ANEU, MDW #### [address] [address] CEFUROXIME:SUSC:PT:ISOLATE:O RDQN:MICon 02-24-2024 Cefuroxime SHAHEEN [Susc] >100,000 cfu/ml Escherichia coli >100,000 cfu/ml Escherichia coli #2 [facility] Work Phone: [facility] 02-24-2024 Albumin Level 3.1 G/dL Low 3.5-5.0 [facility] ([place] Comment on above: Performed By: #### C MP, GFR, CBCBALTAZAR ANEU, MDW #### [address] [address] Albumin/Globulin [Mass ratio] 0.6 {ratio} Low 1.1-2.5 [facility] ([place] Comment on above: Performed By: #### C MP, GFR, CBCBALTAZAR ANEU, MDW #### [address] [address] ALP [Catalytic activity/Vol] 223 U/L High 40-135 [facility] ([place] Comment on above: Performed By: #### C MP, GFR, CBCBALTAZAR ANEU, MDW #### [address] [address] ALT [Catalytic activity/Vol] 44 U/L Normal 14-59 [facility] ([place] Comment on above: Performed By: #### C MP, GFR, CBCBALTAZAR ANEU, MDW #### [address] [address] AST [Catalytic activity/Vol] 36 U/L Normal 10-40 [facility] ([place] Comment on above: Performed By: #### C MP, GFR, CBCBALTAZAR ANEU, MDW #### [address] [address] Bili Total 0.7 mg/dL Normal 0.2-1.0 [facility] ([place] Comment on above: Result Comment: Use of this assay is not recommended for patients undergoing treatment with eltrombopag due to the potential for falsely elevated results. Performed By: #### C MP, GFR, CBCBALTAZAR ANEU, MDW #### [address] [address] BUN/Creatinine Ratio 14 ratio Normal 7-27 [facility] ([place] Comment on above: Performed By: #### C MP, GFR, CBCBALTAZAR ANEU, MDW #### [address] [address] Calcium [Mass/Vol] 9.0 mg/dL Normal 8.4-10.2 [facility] ([place]) Comment on above: Performed By: #### C MP, GFR, CBCBALTAZAR ANEU, MDW #### [address] [address] Chloride [Moles/Vol] 96 mmol/L Low 98-107 [facility] ([place] Comment on above: Performed By: #### C MP, GFR, CBCBALTAZAR ANEU, MDW #### [address] [address] CO2 [Moles/Vol] 32 mmol/L High 22-29 [facility] ([place] Comment on above: Performed By: #### C MP, GFR, CBCBALTAZAR ANEU, MDW #### [address] [address] Creatinine [Mass/Vol] 0.96 mg/dL Normal 0.55-1.02 [facility] ([place]) Comment on above: Performed By: #### C MP, GFR, CBCBALTAZAR ANEU, MDW #### [address] [address] Electrolyte Balance 3.0 mEq/L Low 4.0-15.0 [facility] ([place]) Comment on above: Performed By: #### C MP, GFR, CBC, RAVEN LEDESMA MDW #### [address] [address] Globulin 5.0 G/dL Normal [facility] ([place] Comment on above: Performed By: #### C MP, GFR, CBC, RAVEN LEDESMA MDW #### [address] [address] Glucose [Mass/Vol] 567 mg/dL Critically abnormal 70-105 [facility] ([place] Comment on above: Performed By: #### C MP, GFR, CBC, RAVEN LEDESMA MDW #### [address] [address] Potassium [Moles/Vol] 5.3 mmol/L High 3.5-5.1 [facility] ([place]) Comment on above: Performed By: #### C MP, GFR, CBC, RAVEN LEDESMA MDW #### [address] [address] Sodium [Moles/Vol] 131 mmol/L Low 136-145 [facility] ([place]) Comment on above: Performed By: #### C MP, GFR, CBC, RAVEN LEDESMA MDW #### [address] [address] Total Protein 8.1 G/dL Normal 6.4-8.2 [facility] ([place]) Comment on above: Performed By: #### C MP, GFR, CBC, RAVEN LEDESMA MDW #### [address] [address] Urea nitrogen [Mass/Vol] 13 mg/dL Normal 7-18 [facility] ([place]) Comment on above: Performed By: #### C MP, GFR, CBC, RAVEN LEDESMA MDW #### [address] [address] Cefuroxime SHAHEEN [Susc]on Escherichia coli Escherichia coli [facility] Work Phone: LABORATORYOrdered By: SYSTEM SYSTEM on [...] above: Result Comment: CVRB D Ondash 1335 [id number]. ja Hematocrit (Bld) [Volume fraction] 38.2 % [...] 0 01-27-2024 Urgent Care Visit Report Normal [facility] Office Visit Reporton 2023 Office Visit Report Normal [facility] No Panel Informationon 01-13 Culture Urine >100,000 cfu/ml Mult iple bacterial morphotypes present. Probable Contamination. Suggest recollection if clinically indicated. [facility] Work Phone: US ABDOMEN COMPLETEon 2023 [...] 09/17/2023 1:13:39 PM Ordering Provider: VERO Epstein [facility] ([place]) CT THORAX W/O CONTRASTon CT THORAX W/O [...] 09/04/2023 12:40:25 PM Ordering Provider: VERO ORTEZ Normal [facility] ([place]) GGTon 08-19-2023 Gamma GT 202 U/L High 5-55 [facility] ([place]) Comment on above: Performed By: #### T SH, CMP, GFR #### [place] [address] [address] HEPACon 08-19-2023 Hep A IgM Ab Int Normal [facility] ([place]) Comment on above: Result Comment: No s erological evidence of a current Hepatitis A infection. See Interp Performed By: #### T SH, CMP, GFR #### [address] [address] Hep B Core IgM Ab Non-Reactive Normal Non-Reactive [facility] ([place]) Comment on above: Performed By: #### T SH, CMP, GFR #### [place] [id number] Hep B Core IgM Ab Int Normal [facility] ([place]) Comment on above: Result Comment: Samp les with a value < 0.80 Index are considered nonreactive (negative) for IgM antibodies to hepatitis B core antigen. See Interp Performed By: #### T SH, CMP, GFR #### [place] [address] Hep C Ab Int [facility] ([place]) Comment on above: Result Comment: Nonr eactive: Samples with a value < 0.80 are considered nonreactive (negative) for antibodies to HCV. A negative test result does not exclude the possibility of exposure to or infection with HCV. HCV antibodies may be undetectable in some stages of the infection and in some clinical conditions. See Interp Performed By: #### T SH, CMP, GFR #### [place] [address] Hep A IgM Ab Non-Reactive Normal Non-Reactive [facility] ([place]) Comment on above: Performed By: #### T SH, CMP, GFR #### [place] [address] Hep B Surf Ag Non-Reactive Normal Non-Reactive [facility] ([place]) Comment on above: Performed By: #### T SH, CMP, GFR #### [place] [address] Hep C Ab Non-Reactive Normal Non-Reactive [facility] ([place]) Comment on above: Performed By: #### T SH, CMP, GFR #### [place] [address] .GFRon 07-30-2023 GFR 78 ml/min/1.73sqm [facility] ([place]) Comment on above: Result Comment: GFR Population [...] C MP, GFR, CBCBALTAZAR ANEU, MDW #### [address] [address] GFR Non- 64 ml/min/1.73sqm Normal [facility] ([place]) Comment on above: Result Comment: GFR Population [...] MP, GFR, CBC, RAVEN LEDESMA MDW #### [address] [address] CMPon 07-30-2023 Albumin Level 3.1 G/dL Low 3.5-5.0 [facility] ([place]) Comment on above: Performed By: #### C MP, GFR, CBCBALTAZAR ANEU, MDW #### [address] [address] Albumin/Globulin [Mass ratio] 0.6 {ratio} Low 1.1-2.5 [facility] ([place]) Comment on above: Performed By: #### C MP, GFR, CBC, RAVEN LEDESMA MDW #### [address] [address] ALP [Catalytic activity/Vol] 255 U/L High 40-135 [facility] ([place]) Comment on above: Performed By: #### C MP, GFR, CBC, RAVEN LEDESMA MDW #### [address] [address] ALT [Catalytic activity/Vol] 70 U/L High 14-59 [facility] ([place]) Comment on above: Performed By: #### C MP, GFR, CBCBATLAZAR ANEU, MDW #### [address] [address] AST [Catalytic activity/Vol] 64 U/L High 10-40 [facility] ([place]) Comment on above: Performed By: #### C MP, GFR, CBC, RAVEN LEDESMA MDW #### [address] [address] Bili Total 0.6 mg/dL Normal 0.2-1.0 [facility] ([place]) Comment on above: Result Comment: Use of this assay is not recommended for patients undergoing treatment with eltrombopag due to the potential for falsely elevated results. Performed By: #### C MP, GFR, CBC, RAVEN LEDESMA MDW #### [address] [address] BUN/Creatinine Ratio 13 ratio Normal 7-27 [facility] ([place]) Comment on above: Performed By: #### C MP, GFR, CBC, RAVEN LEDESMA MDW #### [address] [address] Calcium [Mass/Vol] 9.7 mg/dL Normal 8.4-10.2 [facility] ([place]) Comment on above: Performed By: #### C MP, GFR, CBCBALTAZAR ANEU, MDW #### [place] [address] Chloride [Moles/Vol] 98 mmol/L Normal 98-107 [facility] ([place]) Comment on above: Performed By: #### C MP, GFR, CBC, RAVEN LEDESMA MDW #### [address] [address] CO2 [Moles/Vol] 33 mmol/L High 22-29 [facility] ([place]) Comment on above: Performed By: #### C MP, GFR, CBC, ADRAVEN HUFF MDW #### [address] [address] Creatinine [Mass/Vol] 0.91 mg/dL Normal 0.55-1.02 [facility] ([place]) Comment on above: Performed By: #### C MP, GFR, CBC, RAVEN LEDESMA MDW #### [address] [address] Electrolyte Balance 6.0 mEq/L Normal 4.0-15.0 [facility] ([place]) Comment on above: Performed By: #### C MP, GFR, CBC, RAVEN LEDESMA MDW #### [address] [address] Globulin 5.1 G/dL Normal [facility] ([place]) Comment on above: Performed By: #### C MP, GFR, CBC, RAVEN LEDESMA MDW #### [address] [address] Glucose [Mass/Vol] 361 mg/dL High 70-105 [facility] ([place]) Comment on above: Performed By: #### C MP, GFR, CBC, ADRAVEN HUFF MDW #### [address] [address] Potassium [Moles/Vol] 4.7 mmol/L Normal 3.5-5.1 [facility] ([place]) Comment on above: Performed By: #### C MP, GFR, CBC, ADRAVEN HUFF MDW #### [address] [address] Sodium [Moles/Vol] 137 mmol/L Normal 136-145 [facility] ([place]) Comment on above: Performed By: #### C MP, GFR, CBC, RAVEN LEDESMA MDW #### [place] [address] [place], [place] [address] Total Protein 8.2 G/dL Normal 6.4-8.2 [facility] ([place]) Comment on above: Performed By: #### C MP, GFR, CBC, RAVEN LEDESMA MDW #### [place] [id number] [place], [place] [address] Urea nitrogen [Mass/Vol] 12 mg/dL Normal 7-18 [facility] ([place]) Comment on above: Performed By: #### C MP, GFR, CBC, RAVEN LEDESMA MDW #### [address] [address] FT4on 07-30-2023 Free T4 [Mass/Vol] 0.76 ng/dL Normal 0.76-1.46 [facility] ([place]) Comment on above: Performed By: #### C MP, GFR, CBCBALTAZAR ANEU, MDW #### [address] [address] LABORATORYOrdered By: SYSTEM SYSTEM on 07-30-2023 Albumin [...] 07-30-2023 TSH Qn 11.80 m[IU]/L High 0.36-3.74 [facility] ([place]) Comment on above: Performed By: #### C MP, GFR, CBC, RAVEN LEDESMA MDW #### [address] [address] .Auto Diffon 07-26-2023 Basophil, Absolute 0.1 10 3/mcL Normal 0.0-0.2 [facility] ([place]) Comment on above: Performed By: #### T SH, CMP, GFR #### [address] [address] Basophils/100 WBC (Bld) 0.8 % Normal 0.0-2.5 [facility] ([place]) Comment on above: Performed By: #### T SH, CMP, GFR #### [address] [address] Eosinophil, Absolute 0.4 10 3/mcL Normal 0.0-0.4 [facility] ([place]) Comment on above: Performed By: #### T SH, CMP, GFR #### [address] [address] Eosinophils/100 WBC (Bld) 3.5 % Normal 0.0-7.0 [facility] ([place]) Comment on above: Performed By: #### T GIOVANNA, CMP, GFR #### [address] [address] Lymphocyte, Absolute 2.9 10 3/mcL Normal 0.8-3.9 [facility] ([place]) Comment on above: Performed By: #### T SH, CMP, GFR #### [address] [address] Lymphocytes/100 WBC (Bld) 28.1 % Normal 10.0-50.0 [facility] ([place]) Comment on above: Performed By: #### T GIOVANNA, CMP, GFR #### [address] [address] Monocyte, Absolute 0.7 10 3/mcL Normal 0.2-1.0 [facility] ([place]) Comment on above: Performed By: #### T GIOVANNA, CMP, GFR #### [address] [address] Monocytes/100 WBC (Bld) 6.5 % Normal 1.7-13.0 [facility] ([place]) Comment on above: Performed By: #### T GIOVANNA, CMP, GFR #### [address] [address] Neutrophils/100 WBC (Bld) 61.1 % Normal 37.0-80.0 [facility] ([place]) Comment on above: Performed By: #### T SH, CMP, GFR #### [address] [address] .GFRon 07-26-2023 GFR 80 ml/min/1.73sqm Normal [facility] ([place]) Comment on above: Result Comment: GFR [...] By: #### T SH, CMP, GFR #### [address] [address] GFR Non- 66 ml/min/1.73sqm Normal [facility] ([place]) Comment on above: Result Comment: GFR Population [...] By: #### T GIOVANNA, CMP, GFR #### [address] [address] .NEUABSon 07-26-2023 Neutrophil, Absolute 6.2 10 3/mcL Normal 2.9-6.2 [facility] ([place]) Comment on above: Performed By: #### T GIOVANNA, CMP, GFR #### [address] [address] CBCon 07-26-2023 Erythrocyte distribution width (RBC) [Ratio] 15.8 % High 11.5-14.5 [facility] ([place]) Comment on above: Performed By: #### T SH, CMP, GFR #### [address] [address] Hematocrit (Bld) [Volume fraction] 40.5 % Normal 37.0-47.0 [facility] ([place]) Comment on above: Performed By: #### T SH, CMP, GFR #### [address] [address] Hgb 13.6 G/dL Normal 12.0-16.0 [facility] ([place]) Comment on above: Performed By: #### T SH, CMP, GFR #### [address] [address] MCH (RBC) [Entitic mass] 28.8 pg Normal 27.0-31.2 [facility] ([place]) Comment on above: Performed By: #### T SH, CMP, GFR #### [address] [address] MCHC 33.7 G/dL Normal 33.0-37.0 [facility] ([place]) Comment on above: Performed By: #### T SH, CMP, GFR #### [address] [address] MCV (RBC) [Entitic vol] 85.6 fL Normal 80.0-94.0 [facility] ([place]) Comment on above: Performed By: #### T SH, CMP, GFR #### [address] [address] Platelet 232 10 3/mcL Normal 130-400 [facility] ([place]) Comment on above: Performed By: #### T SH, CMP, GFR #### [address] [address] Platelet mean volume (Bld) [Entitic vol] 7.9 fL Normal 7.4-10.4 [facility] ([place]) Comment on above: Performed By: #### T SH, CMP, GFR #### [address] [address] RBC 4.73 10 6/mcL Normal 4.20-5.40 [facility] ([place]) Comment on above: Performed By: #### T SH, CMP, GFR #### [address] [address] WBC 10.2 10 3/mcL Normal 4.6-10.8 [facility] ([place]) Comment on above: Performed By: #### T GIOVANNA, CMP, GFR #### [address] [address] CMPon 07-26-2023 Albumin Level 3.2 G/dL Low 3.5-5.0 [facility] ([place]) Comment on above: Performed By: #### T SH, CMP, GFR #### [address] [address] Albumin/Globulin [Mass ratio] 0.6 {ratio} Low 1.1-2.5 [facility] ([place]) Comment on above: Performed By: #### T GIOVANNA, CMP, GFR #### [address] [address] ALP [Catalytic activity/Vol] 279 U/L High 40-135 [facility] ([place]) Comment on above: Performed By: #### T GIOVANNA, CMP, GFR #### [address] [address] ALT [Catalytic activity/Vol] 106 U/L High 14-59 [facility] ([place]) Comment on above: Performed By: #### T GIOVANNA, CMP, GFR #### [address] [address] AST [Catalytic activity/Vol] 144 U/L High 10-40 [facility] ([place]) Comment on above: Performed By: #### T GIOVANNA, CMP, GFR #### [address] [address] Bili Total 0.8 mg/dL Normal 0.2-1.0 [facility] ([place]) Comment on above: Result Comment: Use of this assay is not recommended for patients undergoing treatment with eltrombopag due to the potential for falsely elevated results. Performed By: #### T GIOVANNA, CMP, GFR #### [address] [address] BUN/Creatinine Ratio 17 ratio Normal 7-27 [facility] ([place]) Comment on above: Performed By: #### T SH, CMP, GFR #### [address] [address] Calcium [Mass/Vol] 9.4 mg/dL Normal 8.4-10.2 [facility] ([place]) Comment on above: Performed By: #### T GIOVANNA, CMP, GFR #### [address] [address] Chloride [Moles/Vol] 97 mmol/L Low 98-107 [facility] ([place]) Comment on above: Performed By: #### T GIOVANNA, CMP, GFR #### [address] [address] CO2 [Moles/Vol] 32 mmol/L High 22-29 [facility] ([place]) Comment on above: Performed By: #### T GIOVANNA, CMP, GFR #### [address] [address] Creatinine [Mass/Vol] 0.89 mg/dL Normal 0.55-1.02 [facility] ([place]) Comment on above: Performed By: #### T GIOVANNA, CMP, GFR #### [address] [address] Electrolyte Balance 6.0 mEq/L Normal 4.0-15.0 [facility] ([place]) Comment on above: Performed By: #### T GIOVANNA, CMP, GFR #### [address] [address] Globulin 5.3 G/dL Normal [facility] ([place]) Comment on above: Performed By: #### T GIOVANNA, CMP, GFR #### [address] [address] Glucose [Mass/Vol] 388 mg/dL High 70-105 [facility] ([place] Comment on above: Performed By: #### T GIOVANNA, CMP, GFR #### [address] [address] Potassium [Moles/Vol] 5.3 mmol/L High 3.5-5.1 [facility] ([place]) Comment on above: Performed By: #### T SH, CMP, GFR #### [place] [address] [place], [place] [address] Sodium [Moles/Vol] 135 mmol/L Low 136-145 [facility] ([place]) Comment on above: Performed By: #### T GIOVANNA, CMP, GFR #### [facility] [address] [place], [place] [address] Total Protein 8.5 G/dL High 6.4-8.2 [facility] ([place]) Comment on above: Performed By: #### T GIOVANNA, CMP, GFR #### [facility] [address] [place], [place] [address] Urea nitrogen [Mass/Vol] 15 mg/dL Normal 7-18 [facility] ([place]) Comment on above: Performed By: #### T GIOVANNA, CMP, GFR #### [place] [address] [place], [place] [address] LABORATORYOrdered By: SYSTEM SYSTEM on 07-26-2023 Albumin [...] 07-26-2023 Cholesterol [Mass/Vol] 169 mg/dL Normal 0-200 [facility] ([place]) Comment on above: Result Comment: Chol esterol Reference Interval: Less than 200 Desirable 200-239 Borderline high risk 240 and above High risk Performed By: #### T SH, CMP, GFR #### [address] [address] Cholesterol in HDL [Mass/Vol] 33 mg/dL Low 40-60 [facility] ([place]) Comment on above: Performed By: #### T SH, CMP, GFR #### [address] [address] Cholesterol in LDL [Mass/Vol] 67 mg/dL Normal 0-130 [facility] ([place]) Comment on above: Performed By: #### T SH, CMP, GFR #### [address] [address] Triglyceride [Mass/Vol] 344 mg/dL High 0-150 [facility] ([place]) Comment on above: Result Comment: Trig lyceride Reference Interval: Less than 150 Normal 150-199 Borderline high risk 200-499 High risk 500 or higher Very high risk Performed By: #### T SH, CMP, GFR #### [address] [address] .Auto Diffon 06-08-2023 Basophil, Absolute 0.1 10 3/mcL Normal 0.0-0.2 [facility] ([place]) Comment on above: Performed By: #### T SH, CMP, GFR #### [address] [address] Basophils/100 WBC (Bld) 0.7 % Normal 0.0-2.5 [facility] ([place]) Comment on above: Performed By: #### T SH, CMP, GFR #### [address] [address] Eosinophil, Absolute 0.5 10 3/mcL High 0.0-0.4 [facility] ([place]) Comment on above: Performed By: #### T SH, CMP, GFR #### [address] [address] Eosinophils/100 WBC (Bld) 5.0 % Normal 0.0-7.0 [facility] ([place]) Comment on above: Performed By: #### T SH, CMP, GFR #### [address] [address] Lymphocyte, Absolute 2.9 10 3/mcL Normal 0.8-3.9 [facility] ([place]) Comment on above: Performed By: #### T SH, CMP, GFR #### [address] [address] Lymphocytes/100 WBC (Bld) 28.4 % Normal 10.0-50.0 [facility] ([place]) Comment on above: Performed By: #### T SH, CMP, GFR #### [address] [address] Monocyte, Absolute 0.5 10 3/mcL Normal 0.2-1.0 [facility] ([place] Comment on above: Performed By: #### T SH, CMP, GFR #### [address] [address] Monocytes/100 WBC (Bld) 5.0 % Normal 1.7-13.0 [facility] ([place]) Comment on above: Performed By: #### T SH, CMP, GFR #### [address] [address] Neutrophils/100 WBC (Bld) 60.9 % Normal 37.0-80.0 [facility] ([place]) Comment on above: Performed By: #### T SH, CMP, GFR #### [address] [address] .GFRon 06-08-2023 GFR 66 ml/min/1.73sqm Normal [facility] ([place]) Comment on above: Result Comment: GFR [...] By: #### T SH, CMP, GFR #### [address] [address] GFR Non- 55 ml/min/1.73sqm Normal [facility] ([place]) Comment on above: Result Comment: GFR [...] By: #### T SH, CMP, GFR #### [address] [address] .MDWon 06-08-2023 Monocyte Distribution Width 22.23 High 0.00-20.00 [facility] ([place]) Comment on above: Result Comment: For adults in ED, MDW>20.0 may be associated with a higher risk of sepsis during the first 12hrs of hospital admission Performed By: #### T GIOVANNA, CMP, GFR #### [place] [address] .NEUABSon 06-08-2023 Neutrophil, Absolute 6.2 10 3/mcL Normal 2.9-6.2 [facility] ([place]) Comment on above: Performed By: #### T SH, CMP, GFR #### [place] [address] .Urinalysis Microscopic (AO) on 06-08-2023 UA RBC 10-15 Abnormal None Seen [facility] ([place] Comment on above: Performed By: #### T SH, CMP, GFR #### [place] [address] UA Squam Epithelial 0-5 Abnormal None Seen [facility] ([place]) Comment on above: Performed By: #### T SH, CMP, GFR #### [place] [address] UA WBC LOADED Abnormal None Seen [facility] ([place] Comment on above: Performed By: #### T SH, CMP, GFR #### [place] [address] CBCon 06-08-2023 Erythrocyte distribution width (RBC) [Ratio] 16.3 % High 11.5-14.5 [facility] ([place]) Comment on above: Performed By: #### C CAPRI, BALTAZAR, RAVEN, MDW, LIP, CMP, GFR #### [address] [address] Hematocrit (Bld) [Volume fraction] 38.8 % Normal 37.0-47.0 [facility] ([place]) Comment on above: Performed By: #### C BC, ADIFF, ANEU, MDW, LIP, CMP, GFR #### [address] [address] Hgb 13.1 G/dL Normal 12.0-16.0 [facility] ([place]) Comment on above: Performed By: #### C BC, ADIFF, ANEU, MDW, LIP, CMP, GFR #### [place] [address] MCH (RBC) [Entitic mass] 28.0 pg Normal 27.0-31.2 [facility] ([place]) Comment on above: Performed By: #### C BC, ADDARIA, ANEU, MDW, LIP, CMP, GFR #### [place] [address] MCHC 33.8 G/dL Normal 33.0-37.0 [facility] ([place]) Comment on above: Performed By: #### C BC, ADDARIA, ANEU, MDW, LIP, CMP, GFR #### [place] [address] MCV (RBC) [Entitic vol] 82.7 fL Normal 80.0-94.0 [facility] ([place]) Comment on above: Performed By: #### C BC, ADDARIA, ANEU, MDW, LIP, CMP, GFR #### [address] [address] Platelet 216 10 3/mcL Normal 130-400 [facility] ([place]) Comment on above: Performed By: #### C BC, ADDARIA, ANEU, MDW, LIP, CMP, GFR #### [address] [address] Platelet mean volume (Bld) [Entitic vol] 7.8 fL Normal 7.4-10.4 [facility] ([place]) Comment on above: Performed By: #### C CAPRI, BALTAZAR, RAVEN, MDW, LIP, CMP, GFR #### [address] [address] RBC 4.68 10 6/mcL Normal 4.20-5.40 [facility] ([place]) Comment on above: Performed By: #### C CAPRI, BALTAZAR, RAVEN, MDW, LIP, CMP, GFR #### [address] [address] WBC 10.2 10 3/mcL Normal 4.6-10.8 [facility] ([place]) Comment on above: Performed By: #### C CAPRI, BALTAZAR, RAVEN, MDW, LIP, CMP, GFR #### [address] [address] CMPon 06-08-2023 Albumin Level 3.4 G/dL Low 3.5-5.0 [facility] ([place]) Comment on above: Performed By: #### T SH, CMP, GFR #### [address] [address] Albumin/Globulin [Mass ratio] 0.7 {ratio} Low 1.1-2.5 [facility] ([place]) Comment on above: Performed By: #### T SH, CMP, GFR #### [address] [address] ALP [Catalytic activity/Vol] 242 U/L High 40-135 [facility] ([place]) Comment on above: Performed By: #### T SH, CMP, GFR #### [place] [address] [address] ALT [Catalytic activity/Vol] 68 U/L High 14-59 [facility] ([place]) Comment on above: Performed By: #### T SH, CMP, GFR #### [address] [address] AST [Catalytic activity/Vol] 53 U/L High 10-40 [facility] ([place]) Comment on above: Performed By: #### T SH, CMP, GFR #### [place] [address] [address] Bili Total 0.5 mg/dL Normal 0.2-1.0 [facility] ([place]) Comment on above: Result Comment: Use of this assay is not recommended for patients undergoing treatment with eltrombopag due to the potential for falsely elevated results. Performed By: #### T SH, CMP, GFR #### [address] [address] BUN/Creatinine Ratio 14 ratio Normal 7-27 [facility] ([place] Comment on above: Performed By: #### T SH, CMP, GFR #### [address] [address] Calcium [Mass/Vol] 8.9 mg/dL Normal 8.4-10.2 [facility] ([place] Comment on above: Performed By: #### T SH, CMP, GFR #### [address] [address] Chloride [Moles/Vol] 96 mmol/L Low 98-107 [facility] ([place] Comment on above: Performed By: #### T SH, CMP, GFR #### [address] [address] CO2 [Moles/Vol] 31 mmol/L High 22-29 [facility] ([place]) Comment on above: Performed By: #### T SH, CMP, GFR #### [address] [address] Creatinine [Mass/Vol] 1.04 mg/dL High 0.55-1.02 [facility] ([place] Comment on above: Performed By: #### T SH, CMP, GFR #### [address] [address] Electrolyte Balance 5.0 mEq/L Normal 4.0-15.0 [facility] ([place]) Comment on above: Performed By: #### T SH, CMP, GFR #### [address] [address] Globulin 5.0 G/dL Normal [facility] ([place]) Comment on above: Performed By: #### T SH, CMP, GFR #### [address] [address] Glucose [Mass/Vol] 355 mg/dL High 70-105 [facility] ([place] Comment on above: Performed By: #### T SH, CMP, GFR #### [address] [address] Potassium [Moles/Vol] 4.6 mmol/L Normal 3.5-5.1 [facility] ([place] Comment on above: Performed By: #### T SH, CMP, GFR #### [address] [address] Sodium [Moles/Vol] 132 mmol/L Low 136-145 [facility] ([place] Comment on above: Performed By: #### T SH, CMP, GFR #### [address] [address] Total Protein 8.4 G/dL High 6.4-8.2 [facility] ([place]) Comment on above: Performed By: #### T SH, CMP, GFR #### [address] [address] Urea nitrogen [Mass/Vol] 15 mg/dL Normal 7-18 [facility] ([place] Comment on above: Performed By: #### T SH, CMP, GFR #### [address] [address] [address] ABD/PELVIS W/ IV CONTRAST ONLYon 06-08-2023 CT ABD/PELVIS W/ IV CONTRAST ONLY ORIGINAL EXAMINATION: CT OF THE ABDOMEN AND PELVIS WITH OTHHCPVO74/18/2023 5:[address] ABDOMEN/PELVIS WITH CONTRAST Multiple [...] ORDERING SYSTEM PROVIDED HISTORY: Reason for Exam: [id number]^ FINDINGS: Lung bases/lower mediastinum: Part solid pulmonary [...] Date: 06/08/2023 6:01:19 PM Ordering Provider: CINDY Epstein [facility] ([place]) LIPon 06-08-2023 Lipase Level 27 U/L Normal 16-77 [facility] ([place]) Comment on above: Performed By: #### T SH, CMP, GFR #### [address] [address] UAon 06-08-2023 Color (U) Yellow Normal [facility] ([place]) Comment on above: Performed By: #### T SH, CMP, GFR #### [address] [address] Glucose (U) [Mass/Vol] 500 mg/dL Abnormal Negative [facility] ([place]) Comment on above: Performed By: #### T SH, CMP, GFR #### [address] [address] Ketones Ql (U) Negative Normal Negative [facility] ([place]) Comment on above: Performed By: #### T SH, CMP, GFR #### [address] [address] UA Appear Cloudy Abnormal Clear [facility] ([place]) Comment on above: Performed By: #### T SH, CMP, GFR #### [address] [address] UA Blood Moderate Abnormal Negative [facility] ([place] Comment on above: Performed By: #### T SH, CMP, GFR #### [address] [address] UA Leuk Est Trace Abnormal Negative [facility] ([place]) Comment on above: Performed By: #### T SH, CMP, GFR #### [address] [address] UA Nitrite Negative Normal Negative [facility] ([place] Comment on above: Performed By: #### T SH, CMP, GFR #### [address] [address] UA pH 6.0 Normal 5.0 - 8.0 [facility] ([place]) Comment on above: Performed By: #### T SH, CMP, GFR #### [address] [address] UA Protein Trace Normal Negative [facility] ([place] Comment on above: Performed By: #### T SH, CMP, GFR #### [address] [address] UA Spec Grav 1.020 Normal 1.015-1.025 [facility] ([place]) Comment on above: Performed By: #### T SH, CMP, GFR #### [address] [address] UA Specimen Type Void Normal [facility] ([place] Comment on above: Performed By: #### T SH, CMP, GFR #### [address] [address] UA Urobilinogen 0.2 E.U./dL Normal 0.2-1.0 [facility] ([place]) Comment on above: Performed By: #### T SH, CMP, GFR #### [address] [address] Urobilinogen (U) [Mass/Vol] Negative Normal Negative [facility] ([place]) Comment on above: Performed By: #### T SH, CMP, GFR #### [address] [address] Absolute lymphocyte countOrd ered By: Sergo Bustillos on 04-20-2023 Lymphocytes Auto (Unsp spec) [#/Vol] 2.51 10*3/uL 0.83-4.51 [facility] Basophil percentageOrdered B y: Sergo Bustillos on 04-20-2023 Basophils/100 WBC (Bld) 1.3 % 0-1 [facility] Chloride [Moles/Vol] 92 mmol/L 98-107 [facility] Eosinophils/100 WBC (Bld) 4.2 % 0-5 [facility] Glucose [Mass/Vol] 347 mg/dL 74-106 [facility] Comment on above: Glucose result great er than or equal to 200 mg/dLsuggests DIABETES MELLITUS per A.D.A. criteria. Neutrophils (Bld) [#/Vol] 5.4 10*3/uL 2.0-7.7 [facility] Neutrophils/100 WBC (Bld) 58.1 % 47-70 [facility] Potassium [Moles/Vol] 4.2 mmol/L 3.5-5.1 [facility] Sodium [Moles/Vol] 128 mmol/L 136-145 [facility] WBC (Bld) [#/Vol] 9.2 10*3/uL 4.4-11.0 [facility] Blood erythrocytes count (nu mber/volume)Ordered By: Sergo Bustillos on 04-20-2023 RBC (Bld) [#/Vol] 4.58 10*6/uL 4.2-5.4 [facility] Blood hemoglobin measurement (mass/volume)Ordered By: Sergo Bustillos on 04-20-2023 Hemoglobin (Bld) [Mass/Vol] 12.3 g/dL 12.0-15.0 [facility] Blood lymphocytes/100 leukoc ytesOrdered By: Sergo Bustillos on 04-20-2023 Lymphocytes/100 WBC (Bld) 27.2 % 19-41 [facility] Blood monocytes/100 leukocyt esOrdered By: Sergo Bustillos on 04-20-2023 Monocytes/100 WBC (Bld) 5.5 % 0-10 [facility] Blood platelet mean volumeOr dered By: Sergo Bustillos on 04-20-2023 Platelet mean volume (Bld) [Entitic vol] 10.5 fL 6.2-12.0 [facility] Determination of erythrocyte mean corpuscular volume (MCV)Ordered By: Sergo Bustillos on 04-20-2023 MCV (RBC) [Entitic vol] 84.7 fL 81-99 [facility] Glucose Glucometer (dC) [M ass/Vol]Ordered By: Sergo Bustillos on 04-20-2023 Glucose [Mass/Vol] 352 mg/dL 74-106 [facility] Comment on above: MANAGEMENT OF PATIEN T CARE PER NURSING PROTOCOL Hematocrit Auto (Bld) [Volum e fraction]Ordered By: Sergo Bustillos on 04-20-2023 Hematocrit (Bld) [Volume fraction] 38.8 % 37-47 [facility] Laboratory - Chemistry and C hemistry - challengeOrdered By: Sergo Bustillos on 04-20-2023 CO2 [Moles/Vol] 29.0 mmol/L 21.0-32.0 [facility] Urea nitrogen/Creatinine [Mass ratio] 25.5 mg/mg 10-20 [facility] Laboratory - Hematology and Cell countsOrdered By: Sergo Bustillos on 04-20-2023 Erythrocyte distribution width (RBC) [Entitic vol] 45.1 fL 35.1-43.9 [facility] Erythrocyte distribution width (RBC) [Ratio] 14.8 % 11.6-14.6 [facility] Immature granulocytes/100 WBC (Bld) 3.700 % 0.0-0.9 [facility] Comment on above: IG% - Immature Granu locytes (promyelocytes, myelocytes and metamyelocytes) > 1% indicates that a LEFT SHIFT is Present. MCH (RBC) [Entitic mass] 26.9 pg 27.0-32.0 [facility] Nucleated RBC/100 WBC (Bld) [Ratio] 0 % 0-5 [facility] MCHC Auto (RBC) [Mass/Vol]Or dered By: Sergo Bustillos on 04-20-2023 MCHC (RBC) [Mass/Vol] 31.7 g/dL 32-36 [facility] No Panel InformationOrdered By: Sergo Bustillos on 04-20-2023 Estimated Creatinine Clearance Calc 46.47 ml/min [facility] Estimated GFR (MDRD) Amer 72 mL/min >60 [facility] Comment on above: GFR Calc Estimated GFR (MDRD) Non-Af Amer 60 mL/min >60 [facility] Comment on above: Non- GFR Calc Platelets bldOrdered By: Omer Bustillos on 04-20-2023 Platelets (Bld) [#/Vol] 213 10*3/uL 150-450 [facility] Respiratory pathogens detect ion panel by molecular detection methodOrdered By: Cecilia Villa on 04-20-2023 Respiratory pathogens DNA and RNA panel [place]+probe (Resp) [facility] Serum or plasma calcium janie urement (mass/volume)Ordered By: Sergo Bustillos on 04-20-2023 Calcium [Mass/Vol] 9.2 mg/dL 8.5-10.1 [facility] Serum or plasma creatinine m easurement (mass/volume)Ordered By: Sergo Bustillos on 04-20-2023 Creatinine [Mass/Vol] 1.02 mg/dL 0.55-1.02 [facility] Comment on above: The validity of the calculated GFR & GFRAA in patients over 70 years has not been determined. Clinical correlation is essential. Serum or plasma urea nitroge n measurement (mass/volume)Ordered By: Sergo Bustillos on 04-20-2023 Urea nitrogen [Mass/Vol] 26 mg/dL 7-18 [facility] Thin prep Papanicolaou smear with manual screeningOrdered By: Sergo Bustillos on 04-20-2023 Thin prep Papanicolaou smear with manual screening 7 5-15 [facility] Basophil percentageOrdered B y: Cecilia Villa on 04-19-2023 Basophil percentage 4.0 mg/dL 2.5-4.9 [facility] Laboratory - Chemistry and C hemistry - challengeOrdered By: Cecilia Villa on 04-19-2023 Magnesium [Mass/Vol] 1.9 mg/dL 1.6-2.6 [facility] Assessment of wrist artery p atency prior to arterial punctureOrdered By: Cecilia Villa on 04-18-2023 Arterial patency Wrist artery --pre arterial puncture Positive [facility] Base excessOrdered By: Audi Villa on 04-18-2023 Base excess Calc (BldV) [Moles/Vol] 6 mmol/L -2-2 [facility] Basophil percentageOrdered B y: Cecilia Villa on 04-18-2023 Basophil percentage 30.6 mmol/L - [facility] Basophils/100 WBC (Bld) 89 % 95-99 [facility] Basophil percentageOrdered B y: Candy Archuleta on 04-18-2023 Bilirubin [Mass/Vol] 0.70 mg/dL 0.20-1.00 [facility] Comment on above: For patients on eltr ombopag therapy, use of Dimension [place] TBIL is not recommended. Protein [Mass/Vol] 8.7 g/dL 6.4-8.2 [facility] Basophil percentage >100 SEEN /hpf 0-5 [facility] Bilirubin Test strip Ql (U)O rdered By: Candy Archuleta on 04-18-2023 Bilirubin Ql (U) Negative Negative [facility] CO2 (BldA) [Partial pressure ]Ordered By: Cecilia Villa on 04-18-2023 CO2 (Bld) [Partial pressure] 46.4 mm[Hg] 35-45 [facility] Culture, urineOrdered By: Ramiro Archuleta on 04-18-2023 Bacteria identified Cx Nom (U) Escherichia coli [facility] Ketones Test strip Ql (U)Ord ered By: Candy Archuleta on 04-18-2023 Ketones Ql (U) Negative Negative [facility] Laboratory - Chemistry and C hemistry - challengeOrdered By: Candy Archuleta on 04-18-2023 ALP [Catalytic activity/Vol] 220 U/L 45-117 [facility] ALT [Catalytic activity/Vol] 50 U/L 13-56 [facility] Globulin (S) [Mass/Vol] 5.7 g/dL 2.2-4.2 [facility] Lipase [Catalytic activity/Vol] 26 U/L 13-75 [facility] Comment on above: Please note:LIPASE r evised reference range effective 22. New Lipase methodology. Expected to produce lower values than the previous assay method. NEW Reference Range: 13 - 75 U/L Natriuretic peptide B (Bld) [Mass/Vol] 6.4 pg/mL 0-100 [facility] Mucus LM Ql (Urine sed)Order ed By: Candy Archuleta on 04-18-2023 Mucus Ql (Urine sed) 0 SEEN /hpf [facility] Nitrite Test strip Ql (U)Ord ered By: Candy Archuleta on 04-18-2023 Nitrite Ql (U) Negative Negative [facility] No Panel InformationOrdered By: Cecilia Villa on 04-18-2023 Blood Gas Sample Site L Radial [facility] Blood Gas Specimen Type ART [facility] Blood Gas Total CO2 32 mmol/L [facility] Blood Gas Vent Mode Not entered [facility] Oxygen Delivery Device Room Air [facility] D-Dimer Quantitative (PE/DVT) 0.54 FEU/ug/m 0.27-0.49 [facility] Comment on above: CRITICAL VALUE VERIF IED. CALLED TO DILAN MONTEJO RN ER 04/18/23 [id number] Josef Barcenas.RESULTS READ BACK BY SAME . D-Dimer ELEVATED (>0.49): Additional studies and clinicalassessments are indicated to conclude diagnosis of:Deep Vein Thrombosis (DVT) or Pulmonary Embolism (PE) Oxygen (BldA) [Partial press ure]Ordered By: Cecilia Villa on 04-18-2023 Oxygen (Bld) [Partial pressure] 55 mmHG 75-100 [facility] Protein Test strip Ql (U)Ord ered By: Candy Archuleta on 04-18-2023 Protein Ql (U) 30 mg/dl Negative [facility] Serum or plasma albumin janie urement (mass/volume)Ordered By: Candy Archuleta on 04-18-2023 Albumin [Mass/Vol] 3.0 g/dL 3.2-5.0 [facility] Serum or plasma albumin/glob ulin mass ratioOrdered By: Candy Archuleta on 04-18-2023 Albumin/Globulin [Mass ratio] 0.5 {ratio} 0.9-2.4 [facility] Squamous epithelial cells de tection in urine sediment by light microscopyOrdered By: Candy Archuleta on 04-18-2023 Epithelial cells.squamous LM Ql (Urine sed) 10-25 SEEN /hpf 5-10 [facility] Thin prep Papanicolaou smear with manual screeningOrdered By: Candy Archuleta on 04-18-2023 Thin prep Papanicolaou smear with manual screening 48 U/L 15-37 [facility] Comment on above: Moderate Hemolysis, Result may be falsely increased. Urine blood detectionOrdered By: Candy Archuleta on 04-18-2023 RBC Ql (U) 150 /ul Negative [facility] RBC Ql (U) 10-25 SEEN /hpf 0-5 [facility] Urine clarityOrdered By: Maria T Archuleta on 04-18-2023 Clarity (U) Cloudy Clear [facility] Urine color determinationOrd ered By: Candy Archuleta on 04-18-2023 Color (U) Yellow Yellow [facility] Urine glucose detectionOrder ed By: Candy Archuleta on 04-18-2023 Glucose Ql (U) 1000 mg/dl Normal [facility] Urine leukocyte esterase det ection by dipstickOrdered By: Candy Archuleta on 04-18-2023 Leukocyte esterase Test strip Ql (U) 500 /ul Negative [facility] Urine pHOrdered By: Candy hendrix on 04-18-2023 pH (U) 6.0 [pH] 5.0 - 8.0 [facility] Urine sediment bacteria coun t by microscopy (number/high power field)Ordered By: Candy Archuleta on 04-18-2023 Bacteria LM.HPF (Urine sed) [#/Area] 2 /[HPF] None Seen [facility] Urine specific gravity measu rementOrdered By: Candy Archuleta on 04-18-2023 Specific gravity (U) [Rel density] 1.015 1.002-1.030 [facility] Urobilinogen Auto test strip Ql (U)Ordered By: Candy Archuleta on 04-18-2023 Urobilinogen Ql (U) 1 mg/dl Normal [facility] pH measurementOrdered By: Yared Villa on 04-18-2023 pH (Unsp spec) 7.43 [pH] 7.35-7.45 [facility] Basophil percentageOrdered B y: Jaziel Drake on 04-17-2023 Cholesterol [Mass/Vol] 135 mg/dL <200 [facility] Comment on above: <200 mg/dL Desirable 200-240 mg/dL Borderline >240 mg/dL High Risk Triglyceride [Mass/Vol] 314 mg/dL <199 [facility] Comment on above: The drugs N-Acetylcy steine and Metamizole may falsely depress this assay.Serum Triglycerides Reference Interval Normal <150 mg/dL Borderline high 150 - 199 mg/dL High 200 - 499 mg/dL Very High > or = 500 mg/dL Laboratory - Chemistry and C hemistry - challengeOrdered By: Jaziel Drake on 04-17-2023 Free T4 [Mass/Vol] 0.75 ng/dL 0.76-1.46 [facility] No Panel InformationOrdered By: Jaziel Drake on 04-17-2023 Thyroid Stimulating Hormone (TSH) 3.79 uIU/mL 0.358-3.74 [facility] Vitamin D 25-Hydroxy 22.2 ng/mL [facility] Comment on above: Vitamin D 25(OH) Sta tus Range Deficiency <20 ng/mL (50nmol/L) Insufficiency 20 - 30 ng/mL (50 - 75 nmol/L) Sufficiency 30 - 100 ng/mL (75 - 250 nmol/L) Toxicity >100 ng/mL (>250 nmol/L) Serum or plasma cholesterol in HDL measurement (mass/volume)Ordered By: Jaziel Drake on 04-17-2023 Cholesterol in HDL [Mass/Vol] 28 mg/dL >40 [facility] Comment on above: The drugs N-Acetylcy steine and Metamizole may falsely depress this assay. Reference Range HDL <40 mg/dL Low HDL Cholesterol HDL >or= 60 mg/dL High HDL Cholesterol Serum or plasma cholesterol in VLDL measurement (mass/volume)Ordered By: Jaziel Drake on 04-17-2023 Cholesterol in VLDL [Mass/Vol] 63 mg/dL 5-40 [facility] Serum or plasma low density lipoprotein (LDL) cholesterol measurement (mass/volume)Ordered By: Jaziel Drake on 04-17-2023 Cholesterol in LDL [Mass/Vol] 44 mg/dL 0-130 [facility] Laboratory - Hematology and Cell countson 02-18-2023 HbA1c (Bld) [Mass fraction] 10.8 % 4.2-6.3 [facility] Absolute lymphocyte countOrd ered By: Joel Mendoza on 01-20-2023 Lymphocytes Auto (Unsp spec) [#/Vol] 2.86 10*3/uL 0.83-4.51 [facility] Amorphous sediment detection in urine sediment by light microscopyOrdered By: Joel Mendoza on 01-20-2023 Amorphous sediment LM Ql (Urine sed) 1+ URATE [facility] Basophil percentageOrdered B y: Joel Mendoza on 01-20-2023 Basophil percentage 50-100 SEEN /hpf 0-5 [facility] Basophils/100 WBC (Bld) 0.8 % 0-1 [facility] Chloride [Moles/Vol] 99 mmol/L 98-107 [facility] Eosinophils/100 WBC (Bld) 2.0 % 0-5 [facility] Glucose [Mass/Vol] 148 mg/dL 74-106 [facility] Comment on above: Fasting Glucose resu lt greater than or equal to 126 mg/dL suggests DIABETES MELLITUS per A.D.A. criteria. Neutrophils (Bld) [#/Vol] 6.9 10*3/uL 2.0-7.7 [facility] Neutrophils/100 WBC (Bld) 64.6 % 47-70 [facility] Potassium [Moles/Vol] 4.9 mmol/L 3.5-5.1 [facility] Comment on above: Moderate Hemolysis, Result may be falsely increased. Sodium [Moles/Vol] 132 mmol/L 136-145 [facility] WBC (Bld) [#/Vol] 10.7 10*3/uL 4.4-11.0 [facility] Bilirubin Test strip Ql (U)O rdered By: Joel Mendoza on 01-20-2023 Bilirubin Ql (U) 1 mg/dL Negative [facility] Comment on above: COLOR OF URINE MAY A FFECT DIPSTICK RESULTS. Blood erythrocytes count (nu mber/volume)Ordered By: Joel Mendoza on 01-20-2023 RBC (Bld) [#/Vol] 4.89 10*6/uL 4.2-5.4 [facility] Blood hemoglobin measurement (mass/volume)Ordered By: Joel Mendoza on 01-20-2023 Hemoglobin (Bld) [Mass/Vol] 12.8 g/dL 12.0-15.0 [facility] Blood lymphocytes/100 leukoc ytesOrdered By: Joel Mendoza on 01-20-2023 Lymphocytes/100 WBC (Bld) 26.6 % 19-41 [facility] Blood monocytes/100 leukocyt esOrdered By: Joel Mendoza on 01-20-2023 Monocytes/100 WBC (Bld) 5.4 % 0-10 [facility] Blood platelet mean volumeOr dered By: Joel Mendoza on 01-20-2023 Platelet mean volume (Bld) [Entitic vol] 10.3 fL 6.2-12.0 [facility] Culture, urineOrdered By: Alisa Mendoza on 01-20-2023 Bacteria identified Cx Nom (U) Presumptive Lactobacillus sp. [facility] Determination of erythrocyte mean corpuscular volume (MCV)Ordered By: Joel Mendoza on 01-20-2023 MCV (RBC) [Entitic vol] 82.4 fL 81-99 [facility] Hematocrit Auto (Bld) [Volum e fraction]Ordered By: Joel Mendoza on 01-20-2023 Hematocrit (Bld) [Volume fraction] 40.3 % 37-47 [facility] Ketones Test strip Ql (U)Ord ered By: Joel Mendoza on 01-20-2023 Ketones Ql (U) 5 mg/dl Negative [facility] Laboratory - Chemistry and C hemistry - challengeOrdered By: Joel Mendoza on 01-20-2023 CO2 [Moles/Vol] 30.0 mmol/L 21.0-32.0 [facility] Natriuretic peptide B (Bld) [Mass/Vol] 6.0 pg/mL 0-100 [facility] Urea nitrogen/Creatinine [Mass ratio] 16.5 mg/mg 10-20 [facility] Laboratory - Hematology and Cell countsOrdered By: Joel Mendoza on 01-20-2023 Erythrocyte distribution width (RBC) [Entitic vol] 43.8 fL 35.1-43.9 [facility] Erythrocyte distribution width (RBC) [Ratio] 14.7 % 11.6-14.6 [facility] Immature granulocytes/100 WBC (Bld) 0.600 % 0.0-0.9 [facility] Comment on above: IG% - Immature Granu locytes (promyelocytes, myelocytes and metamyelocytes) > 1% indicates that a LEFT SHIFT is Present. MCH (RBC) [Entitic mass] 26.2 pg 27.0-32.0 [facility] Nucleated RBC/100 WBC (Bld) [Ratio] 0 % 0-5 [facility] MCHC Auto (RBC) [Mass/Vol]Or dered By: Joel Mendoza on 01-20-2023 MCHC (RBC) [Mass/Vol] 31.8 g/dL 32-36 [facility] Mucus LM Ql (Urine sed)Order ed By: Joel Mendoza on 01-20-2023 Mucus Ql (Urine sed) 0 SEEN /hpf [facility] Nitrite Test strip Ql (U)Ord ered By: Joel Mendoza on 01-20-2023 Nitrite Ql (U) Negative Negative [facility] No Panel InformationOrdered By: Joel Mendoza on 01-20-2023 Estimated Creatinine Clearance Calc 39.17 ml/min [facility] Estimated GFR (MDRD) Amer 59 mL/min >60 [facility] Comment on above: GFR Calc Estimated GFR (MDRD) Non-Af Amer 49 mL/min >60 [facility] Comment on above: Non- GFR Calc Thyroid Stimulating Hormone (TSH) 4.15 uIU/mL 0.358-3.74 [facility] Platelets bldOrdered By: Kimi Mendoza on 01-20-2023 Platelets (Bld) [#/Vol] 236 10*3/uL 150-450 [facility] Protein Test strip Ql (U)Ord ered By: Joel Mendoza on 01-20-2023 Protein Ql (U) 100 mg/dl Negative [facility] Serum or plasma calcium janie urement (mass/volume)Ordered By: Joel Mendoza on 01-20-2023 Calcium [Mass/Vol] 9.2 mg/dL 8.5-10.1 [facility] Serum or plasma creatinine m easurement (mass/volume)Ordered By: Joel Mendoza on 01-20-2023 Creatinine [Mass/Vol] 1.21 mg/dL 0.55-1.02 [facility] Comment on above: The validity of the calculated GFR & GFRAA in patients over 70 years has not been determined. Clinical correlation is essential. Serum or plasma urea nitroge n measurement (mass/volume)Ordered By: Joel Mendoza on 01-20-2023 Urea nitrogen [Mass/Vol] 20 mg/dL 7-18 [facility] Squamous epithelial cells de tection in urine sediment by light microscopyOrdered By: Joel Mendoza on 01-20-2023 Epithelial cells.squamous LM Ql (Urine sed) 0-5 SEEN /hpf 5-10 [facility] Thin prep Papanicolaou smear with manual screeningOrdered By: Joel Mendoza on 01-20-2023 Thin prep Papanicolaou smear with manual screening 3 5-15 [facility] Urine blood detectionOrdered By: Joel Mendoza on 01-20-2023 RBC Ql (U) 250 /ul Negative [facility] RBC Ql (U) 25-50 SEEN /hpf 0-5 [facility] Urine clarityOrdered By: Kimi Mendoza on 01-20-2023 Clarity (U) Cloudy Clear [facility] Urine color determinationOrd ered By: Joel Mendoza on 01-20-2023 Color (U) Yellow Yellow [facility] Urine glucose detectionOrder ed By: Joel Mendoza on 01-20-2023 Glucose Ql (U) Normal mg/dl Normal [facility] Urine leukocyte esterase det ection by dipstickOrdered By: Joel Mendoza on 01-20-2023 Leukocyte esterase Test strip Ql (U) 500 /ul Negative [facility] Urine pHOrdered By: Joel lamar on 01-20-2023 pH (U) 5.0 [pH] 5.0 - 8.0 [facility] Urine sediment bacteria coun t by microscopy (number/high power field)Ordered By: Joel Mendoza on 01-20-2023 Bacteria LM.HPF (Urine sed) [#/Area] 0 /[HPF] None Seen [facility] Urine sediment yeast count b y microscopy (number/high powered field)Ordered By: Joel Mendoza on 01-20-2023 Yeast LM.HPF (Urine sed) [#/Area] RARE /hpf None Seen [facility] Urine specific gravity measu rementOrdered By: Joel Mendoza on 01-20-2023 Specific gravity (U) [Rel density] 1.020 1.002-1.030 [facility] Urobilinogen Auto test strip Ql (U)Ordered By: Joel Mendoza on 01-20-2023 Urobilinogen Ql (U) 4 mg/dl Normal [facility] Absolute lymphocyte countOrd ered By: Dr. Hill on 01-07-2023 Lymphocytes Auto (Unsp spec) [#/Vol] 2.80 10*3/uL 0.83-4.51 [facility] Basophil percentageOrdered B y: Dr. Hill on 01-07-2023 Basophil percentage 10-25 SEEN /hpf 0-5 [facility] Basophils/100 WBC (Bld) 0.9 % 0-1 [facility] Chloride [Moles/Vol] 95 mmol/L 98-107 [facility] Eosinophils/100 WBC (Bld) 1.8 % 0-5 [facility] Glucose [Mass/Vol] 413 mg/dL 74-106 [facility] Comment on above: Glucose result great er than or equal to 200 mg/dLsuggests DIABETES MELLITUS per A.D.A. criteria. Neutrophils (Bld) [#/Vol] 5.5 10*3/uL 2.0-7.7 [facility] Neutrophils/100 WBC (Bld) 60.2 % 47-70 [facility] Potassium [Moles/Vol] 4.4 mmol/L 3.5-5.1 [facility] Sodium [Moles/Vol] 130 mmol/L 136-145 [facility] WBC (Bld) [#/Vol] 9.0 10*3/uL 4.4-11.0 [facility] Bilirubin Test strip Ql (U)O rdered By: Dr. Hill on 01-07-2023 Bilirubin Ql (U) Negative Negative [facility] Blood erythrocytes count (nu mber/volume)Ordered By: Dr. Hill on 01-07-2023 RBC (Bld) [#/Vol] 5.46 10*6/uL 4.2-5.4 [facility] Blood hemoglobin measurement (mass/volume)Ordered By: Dr. Hill on 01-07-2023 Hemoglobin (Bld) [Mass/Vol] 14.1 g/dL 12.0-15.0 [facility] Blood lymphocytes/100 leukoc ytesOrdered By: Dr. Hill on 01-07-2023 Lymphocytes/100 WBC (Bld) 31.0 % 19-41 [facility] Blood monocytes/100 leukocyt esOrdered By: Dr. Hlil on 01-07-2023 Monocytes/100 WBC (Bld) 4.8 % 0-10 [facility] Blood platelet mean volumeOr dered By: Dr. Hill on 01-07-2023 Platelet mean volume (Bld) [Entitic vol] 9.9 fL 6.2-12.0 [facility] Determination of erythrocyte mean corpuscular volume (MCV)Ordered By: Dr. Hill on 01-07-2023 MCV (RBC) [Entitic vol] 81.7 fL 81-99 [facility] Glucose Glucometer (BldC) [M ass/Vol]Ordered By: Dr. Hill on 01-07-2023 Glucose [Mass/Vol] 372 mg/dL 74-106 [facility] Comment on above: MANAGEMENT OF PATIEN T CARE PER NURSING PROTOCOL HCO3 (BldA) [Moles/Vol]Order ed By: Dr. Hill on 01-07-2023 HCO3 (Bld) [Moles/Vol] 32 mmol/L 22-26 [facility] Hematocrit Auto (Bld) [Volum e fraction]Ordered By: Dr. Hill on 01-07-2023 Hematocrit (Bld) [Volume fraction] 44.6 % 37-47 [facility] Ketones Test strip Ql (U)Ord ered By: Dr. Hill on 01-07-2023 Ketones Ql (U) Negative Negative [facility] Laboratory - Chemistry and C hemistry - challengeOrdered By: Dr. Hill on 01-07-2023 CO2 [Moles/Vol] 34 mmol/L 23-33 [facility] CO2 [Moles/Vol] 30.0 mmol/L 21.0-32.0 [facility] Urea nitrogen/Creatinine [Mass ratio] 13.3 mg/mg 10-20 [facility] Laboratory - Hematology and Cell countsOrdered By: Dr. Hill on 01-07-2023 Erythrocyte distribution width (RBC) [Entitic vol] 43.7 fL 35.1-43.9 [facility] Erythrocyte distribution width (RBC) [Ratio] 14.9 % 11.6-14.6 [facility] Immature granulocytes/100 WBC (Bld) 1.300 % 0.0-0.9 [facility] Comment on above: IG% - Immature Granu locytes (promyelocytes, myelocytes and metamyelocytes) > 1% indicates that a LEFT SHIFT is Present. MCH (RBC) [Entitic mass] 25.8 pg 27.0-32.0 [facility] Nucleated RBC/100 WBC (Bld) [Ratio] 0 % 0-5 [facility] MCHC Auto (RBC) [Mass/Vol]Or dered By: Dr. Hill on 01-07-2023 MCHC (RBC) [Mass/Vol] 31.6 g/dL 32-36 [facility] Mucus LM Ql (Urine sed)Order ed By: Dr. Hill on 01-07-2023 Mucus Ql (Urine sed) 0 SEEN /hpf [facility] Nitrite Test strip Ql (U)Ord ered By: Dr. Hill on 01-07-2023 Nitrite Ql (U) Negative Negative [facility] No Panel InformationOrdered By: Dr. Hill on 01-07-2023 Bed Mix Venous Bld PCO2 at Pat Temp 56.7 mmHg 41-51 [facility] Blood Gas Specimen Type SATHYA [facility] Venous Blood Base Excess 7 mmol/L -1.0-3.5 [facility] Estimated Creatinine Clearance Calc 48.37 ml/min [facility] Estimated GFR (MDRD) Amer 76 mL/min >60 [facility] Comment on above: GFR Calc Estimated GFR (MDRD) Non-Af Amer 63 mL/min >60 [facility] Comment on above: Non- GFR Calc PO2 venousOrdered By: Dr. Kumar hood on 01-07-2023 Oxygen (BldV) [Partial pressure] 37 mm[Hg] 25-40 [facility] Platelets bldOrdered By: Dr. Hill on 01-07-2023 Platelets (Bld) [#/Vol] 235 10*3/uL 150-450 [facility] Protein Test strip Ql (U)Ord ered By: Dr. Hill on 01-07-2023 Protein Ql (U) 15 mg/dl Negative [facility] Serum or plasma acetone janie urement (mass/volume)Ordered By: Dr. Hill on 01-07-2023 Acetone [Mass/Vol] Negative NEG [facility] Serum or plasma calcium janie urement (mass/volume)Ordered By: Dr. Hill on 01-07-2023 Calcium [Mass/Vol] 9.6 mg/dL 8.5-10.1 [facility] Serum or plasma creatinine m easurement (mass/volume)Ordered By: Dr. Hill on 01-07-2023 Creatinine [Mass/Vol] 0.98 mg/dL 0.55-1.02 [facility] Comment on above: The validity of the calculated GFR & GFRAA in patients over 70 years has not been determined. Clinical correlation is essential. Serum or plasma urea nitroge n measurement (mass/volume)Ordered By: Dr. Hill on 01-07-2023 Urea nitrogen [Mass/Vol] 13 mg/dL 7-18 [facility] Squamous epithelial cells de tection in urine sediment by light microscopyOrdered By: Dr. Hill on 01-07-2023 Epithelial cells.squamous LM Ql (Urine sed) 0-5 SEEN /hpf 5-10 [facility] Thin prep Papanicolaou smear with manual screeningOrdered By: Dr. Hill on 01-07-2023 Thin prep Papanicolaou smear with manual screening 5 5-15 [facility] Urine blood detectionOrdered By: Dr. Hill on 01-07-2023 RBC Ql (U) 50 /ul Negative [facility] RBC Ql (U) 0-5 SEEN /hpf 0-5 [facility] Urine clarityOrdered By: Dr. Hill on 01-07-2023 Clarity (U) Sl. Cloudy Clear [facility] Urine color determinationOrd ered By: Dr. Hill on 01-07-2023 Color (U) Yellow Yellow [facility] Urine glucose detectionOrder ed By: Dr. Hill on 01-07-2023 Glucose Ql (U) 1000 mg/dl Normal [facility] Urine leukocyte esterase det ection by dipstickOrdered By: Dr. Hill on 01-07-2023 Leukocyte esterase Test strip Ql (U) 25 /ul Negative [facility] Urine pHOrdered By: Dr. Danny fall on 01-07-2023 pH (U) 7.0 [pH] 5.0 - 8.0 [facility] Urine sediment bacteria coun t by microscopy (number/high power field)Ordered By: Dr. Hill on 01-07-2023 Bacteria LM.HPF (Urine sed) [#/Area] 0 /[HPF] None Seen [facility] Urine specific gravity measu rementOrdered By: Dr. Hill on 01-07-2023 Specific gravity (U) [Rel density] 1.010 1.002-1.030 [facility] Urobilinogen Auto test strip Ql (U)Ordered By: Dr. Hill on 01-07-2023 Urobilinogen Ql (U) Normal mg/dl Normal [facility] Vital signsOrdered By: Dr. Tosha florez on 01-07-2023 Oxygen saturation in Blood 66 % 50-70 [facility] pH measurementOrdered By: Dr Catie Hill on 01-07-2023 pH (Unsp spec) 7.36 [pH] 7.32-7.42 [facility] Absolute lymphocyte countOrd ered By: Dr. Hernandez on 10-25-2022 Lymphocytes Auto (Unsp spec) [#/Vol] 2.24 10*3/uL 0.83-4.51 [facility] Basophil percentageOrdered B y: Dr. Hernandez on 10-25-2022 Basophils/100 WBC (Bld) 0.7 % 0-1 [facility] Chloride [Moles/Vol] 98 mmol/L 98-107 [facility] Eosinophils/100 WBC (Bld) 2.1 % 0-5 [facility] Glucose [Mass/Vol] 366 mg/dL 74-106 [facility] Comment on above: Glucose result great er than or equal to 200 mg/dLsuggests DIABETES MELLITUS per A.D.A. criteria. Neutrophils (Bld) [#/Vol] 4.4 10*3/uL 2.0-7.7 [facility] Neutrophils/100 WBC (Bld) 60.3 % 47-70 [facility] Potassium [Moles/Vol] 4.2 mmol/L 3.5-5.1 [facility] Sodium [Moles/Vol] 132 mmol/L 136-145 [facility] WBC (Bld) [#/Vol] 7.3 10*3/uL 4.4-11.0 [facility] Blood erythrocytes count (nu mber/volume)Ordered By: Dr. Hernandez on 10-25-2022 RBC (Bld) [#/Vol] 4.69 10*6/uL 4.2-5.4 [facility] Blood hemoglobin measurement (mass/volume)Ordered By: Dr. Hernandez on 10-25-2022 Hemoglobin (Bld) [Mass/Vol] 12.1 g/dL 12.0-15.0 [facility] Blood lymphocytes/100 leukoc ytesOrdered By: Dr. Hernandez on 10-25-2022 Lymphocytes/100 WBC (Bld) 30.7 % 19-41 [facility] Blood monocytes/100 leukocyt esOrdered By: Dr. Hernandez on 10-25-2022 Monocytes/100 WBC (Bld) 5.2 % 0-10 [facility] Blood platelet mean volumeOr dered By: Dr. Hernandez on 10-25-2022 Platelet mean volume (Bld) [Entitic vol] 9.8 fL 6.2-12.0 [facility] Determination of erythrocyte mean corpuscular volume (MCV)Ordered By: Dr. Hernandez on 10-25-2022 MCV (RBC) [Entitic vol] 80.8 fL 81-99 [facility] Hematocrit Auto (Bld) [Volum e fraction]Ordered By: Dr. Hernandez on 10-25-2022 Hematocrit (Bld) [Volume fraction] 37.9 % 37-47 [facility] Laboratory - Chemistry and C hemistry - challengeOrdered By: Dr. Hernandez on 10-25-2022 CO2 [Moles/Vol] 30.0 mmol/L 21.0-32.0 [facility] Free T4 [Mass/Vol] 1.22 ng/dL 0.76-1.46 [facility] Natriuretic peptide B (Bld) [Mass/Vol] 10.6 pg/mL 0-100 [facility] Urea nitrogen/Creatinine [Mass ratio] 22.8 mg/mg 10-20 [facility] Laboratory - Hematology and Cell countsOrdered By: Dr. Hernandez on 10-25-2022 Erythrocyte distribution width (RBC) [Entitic vol] 45.1 fL 35.1-43.9 [facility] Erythrocyte distribution width (RBC) [Ratio] 15.5 % 11.6-14.6 [facility] Immature granulocytes/100 WBC (Bld) 1.000 % 0.0-0.9 [facility] Comment on above: IG% - Immature Granu locytes (promyelocytes, myelocytes and metamyelocytes) > 1% indicates that a LEFT SHIFT is Present. MCH (RBC) [Entitic mass] 25.8 pg 27.0-32.0 [facility] Nucleated RBC/100 WBC (Bld) [Ratio] 0 % 0-5 [facility] MCHC Auto (RBC) [Mass/Vol]Or dered By: Dr. Hernandez on 10-25-2022 MCHC (RBC) [Mass/Vol] 31.9 g/dL 32-36 [facility] No Panel InformationOrdered By: Dr. Hernandez on 10-25-2022 Estimated Creatinine Clearance Calc 57.10 ml/min [facility] Estimated GFR (MDRD) Amer 91 mL/min >60 [facility] Comment on above: GFR Calc Estimated GFR (MDRD) Non-Af Amer 75 mL/min >60 [facility] Comment on above: Non- GFR Calc Free Triiodothyronine (T3) pg/dL 2.7 pg/mL 2.18-3.98 [facility] Thyroid Stimulating Hormone (TSH) 0.34 uIU/mL 0.358-3.74 [facility] Troponin I High Sensitivity 37 pg/mL 3.0-54.0 [facility] Comment on above: Please Note: [place] Units and Gender Specific Reference Ranges. For more information see Policy Stat Procedure [place] High Sensitivity Troponin (TNIH) and attachments. Platelets bldOrdered By: Dr. Hernandez on 10-25-2022 Platelets (Bld) [#/Vol] 207 10*3/uL 150-450 [facility] Serum or plasma calcium janie urement (mass/volume)Ordered By: Dr. Hernandez on 10-25-2022 Calcium [Mass/Vol] 9.2 mg/dL 8.5-10.1 [facility] Serum or plasma creatinine m easurement (mass/volume)Ordered By: Dr. Hernandez on 10-25-2022 Creatinine [Mass/Vol] 0.84 mg/dL 0.55-1.02 [facility] Comment on above: The validity of the calculated GFR & GFRAA in patients over 70 years has not been determined. Clinical correlation is essential. Serum or plasma urea nitroge n measurement (mass/volume)Ordered By: Dr. Hernandez on 10-25-2022 Urea nitrogen [Mass/Vol] 19 mg/dL 7-18 [facility] Thin prep Papanicolaou smear with manual screeningOrdered By: Dr. Hernandez on 10-25-2022 Thin prep Papanicolaou smear with manual screening 4 5-15 [facility] Culture, urineOrdered By: Dr Catie Rivera on 10-12-2022 Bacteria identified Cx Nom (U) Presumptive E. coli [facility] Basophil percentageOrdered B y: Dr. Rivera on 10-10-2022 Basophil percentage >100 SEEN /hpf 0-5 [facility] Comment on above: Microscopic field is filled. Other elements may be obscured. Bilirubin Test strip Ql (U)O rdered By: Dr. Rivera on 10-10-2022 Bilirubin Ql (U) Negative Negative [facility] Culture, urineOrdered By: Jeffery Rivera on 10-10-2022 Bacteria identified Cx Nom (U) Presumptive E. coli [facility] Ketones Test strip Ql (U)Ord ered By: Dr. Rivera on 10-10-2022 Ketones Ql (U) Negative Negative [facility] Mucus LM Ql (Urine sed)Order ed By: Dr. Rivera on 10-10-2022 Mucus Ql (Urine sed) 0 SEEN /hpf [facility] Nitrite Test strip Ql (U)Ord ered By: Dr. Rivera on 10-10-2022 Nitrite Ql (U) Positive Negative [facility] Protein Test strip Ql (U)Ord ered By: Dr. Rivera on 10-10-2022 Protein Ql (U) 100 mg/dl Negative [facility] Squamous epithelial cells de tection in urine sediment by light microscopyOrdered By: Dr. Rivera on 10-10-2022 Epithelial cells.squamous LM Ql (Urine sed) 0 SEEN /hpf 5-10 [facility] Urine blood detectionOrdered By: Dr. Rivera on 10-10-2022 RBC Ql (U) 150 /ul Negative [facility] RBC Ql (U) 25-50 SEEN /hpf 0-5 [facility] Urine clarityOrdered By: Dr. Rivera on 10-10-2022 Clarity (U) Turbid Clear [facility] Urine color determinationOrd ered By: Dr. Rivera on 10-10-2022 Color (U) Yellow Yellow [facility] Urine glucose detectionOrder ed By: Dr. Rivera on 10-10-2022 Glucose Ql (U) Normal mg/dl Normal [facility] Urine leukocyte esterase det ection by dipstickOrdered By: Dr. Rivera on 10-10-2022 Leukocyte esterase Test strip Ql (U) 500 /ul Negative [facility] Urine pHOrdered By: Dr. Joaquin lozada on 10-10-2022 pH (U) 6.5 [pH] 5.0 - 8.0 [facility] Urine sediment bacteria coun t by microscopy (number/high power field)Ordered By: Dr. Rivera on 10-10-2022 Bacteria LM.HPF (Urine sed) [#/Area] 4 /[HPF] None Seen [facility] Urine specific gravity measu rementOrdered By: Dr. Rivera on 10-10-2022 Specific gravity (U) [Rel density] 1.015 1.002-1.030 [facility] Urobilinogen Auto test strip Ql (U)Ordered By: Dr. Rivera on 10-10-2022 Urobilinogen Ql (U) Normal mg/dl Normal [facility] STREP A MOLECULAR (POC)on Procedural Control Valid [facility] Strep A (POCT) Negative Negative [facility] Absolute lymphocyte countOrd ered By: Dr. Hernandez on 09-21-2022 Lymphocytes Auto (Unsp spec) [#/Vol] 2.57 10*3/uL 0.83-4.51 [facility] Basophil percentageOrdered B y: Dr. Hernandez on 09-21-2022 Basophil percentage 25-50 SEEN /hpf 0-5 [facility] Basophils/100 WBC (Bld) 0.6 % 0-1 [facility] Chloride [Moles/Vol] 101 mmol/L 98-107 [facility] Eosinophils/100 WBC (Bld) 2.7 % 0-5 [facility] Glucose [Mass/Vol] 245 mg/dL 74-106 [facility] Comment on above: Glucose result great er than or equal to 200 mg/dLsuggests DIABETES MELLITUS per A.D.A. criteria. Neutrophils (Bld) [#/Vol] 4.7 10*3/uL 2.0-7.7 [facility] Neutrophils/100 WBC (Bld) 58.1 % 47-70 [facility] Potassium [Moles/Vol] 4.0 mmol/L 3.5-5.1 [facility] Sodium [Moles/Vol] 138 mmol/L 136-145 [facility] WBC (Bld) [#/Vol] 8.1 10*3/uL 4.4-11.0 [facility] Bilirubin Test strip Ql (U)O rdered By: Dr. Hernandez on 09-21-2022 Bilirubin Ql (U) Negative Negative [facility] Blood erythrocytes count (nu mber/volume)Ordered By: Dr. Hernandez on 09-21-2022 RBC (Bld) [#/Vol] 4.40 10*6/uL 4.2-5.4 [facility] Blood hemoglobin measurement (mass/volume)Ordered By: Dr. Hernandez on 09-21-2022 Hemoglobin (Bld) [Mass/Vol] 10.8 g/dL 12.0-15.0 [facility] Blood lymphocytes/100 leukoc ytesOrdered By: Dr. Hernandez on 09-21-2022 Lymphocytes/100 WBC (Bld) 31.8 % 19-41 [facility] Blood monocytes/100 leukocyt esOrdered By: Dr. Hernandez on 09-21-2022 Monocytes/100 WBC (Bld) 5.2 % 0-10 [facility] Blood platelet mean volumeOr dered By: Dr. Hernandez on 09-21-2022 Platelet mean volume (Bld) [Entitic vol] 9.8 fL 6.2-12.0 [facility] Determination of erythrocyte mean corpuscular volume (MCV)Ordered By: Dr. Hernandez on 09-21-2022 MCV (RBC) [Entitic vol] 80.9 fL 81-99 [facility] Glucose Glucometer (dC) [M ass/Vol]Ordered By: ED PROVIDER on 09-21-2022 Glucose [Mass/Vol] 235 mg/dL 74-106 [facility] Comment on above: MANAGEMENT OF PATIEN T CARE PER NURSING PROTOCOL Hematocrit Auto (Bld) [Volum e fraction]Ordered By: Dr. Hernandez on 09-21-2022 Hematocrit (Bld) [Volume fraction] 35.6 % 37-47 [facility] Ketones Test strip Ql (U)Ord ered By: Dr. Hernandez on 09-21-2022 Ketones Ql (U) Negative Negative [facility] Laboratory - Chemistry and C hemistry - challengeOrdered By: Dr. Hernandez on 09-21-2022 CO2 [Moles/Vol] 32.0 mmol/L 21.0-32.0 [facility] Natriuretic peptide B (Bld) [Mass/Vol] 41.3 pg/mL 0-100 [facility] Urea nitrogen/Creatinine [Mass ratio] 21.0 mg/mg 10-20 [facility] Laboratory - Hematology and Cell countsOrdered By: Dr. Hernandez on 09-21-2022 Erythrocyte distribution width (RBC) [Entitic vol] 42.4 fL 35.1-43.9 [facility] Erythrocyte distribution width (RBC) [Ratio] 14.6 % 11.6-14.6 [facility] Immature granulocytes/100 WBC (Bld) 1.600 % 0.0-0.9 [facility] Comment on above: IG% - Immature Granu locytes (promyelocytes, myelocytes and metamyelocytes) > 1% indicates that a LEFT SHIFT is Present. MCH (RBC) [Entitic mass] 24.5 pg 27.0-32.0 [facility] Nucleated RBC/100 WBC (Bld) [Ratio] 0 % 0-5 [facility] MCHC Auto (RBC) [Mass/Vol]Or dered By: Dr. Hernandez on 09-21-2022 MCHC (RBC) [Mass/Vol] 30.3 g/dL 32-36 [facility] Mucus LM Ql (Urine sed)Order ed By: Dr. Hernandez on 09-21-2022 Mucus Ql (Urine sed) 1+ /hpf [facility] Nitrite Test strip Ql (U)Ord ered By: Dr. Hernandez on 09-21-2022 Nitrite Ql (U) Negative Negative [facility] No Panel InformationOrdered By: Dr. Hernandez on 09-21-2022 Estimated Creatinine Clearance Calc 71.59 ml/min [facility] Estimated GFR (MDRD) Amer 118 mL/min >60 [facility] Comment on above: GFR Calc Estimated GFR (MDRD) Non-Af Amer 97 mL/min >60 [facility] Comment on above: Non- GFR Calc Troponin I High Sensitivity 52 pg/mL 3.0-54.0 [facility] Comment on above: Please Note: [place] Units and Gender Specific Reference Ranges. For more information see Policy Stat Procedure [place] High Sensitivity Troponin (TNIH) and attachments. Platelets bldOrdered By: Dr. Hernandez on 09-21-2022 Platelets (Bld) [#/Vol] 235 10*3/uL 150-450 [facility] Protein Test strip Ql (U)Ord ered By: Dr. Hernandez on 09-21-2022 Protein Ql (U) 30 mg/dl Negative [facility] Serum or plasma calcium janie urement (mass/volume)Ordered By: Dr. Hernandez on 09-21-2022 Calcium [Mass/Vol] 8.8 mg/dL 8.5-10.1 [facility] Serum or plasma creatinine m easurement (mass/volume)Ordered By: Dr. Hernandez on 09-21-2022 Creatinine [Mass/Vol] 0.67 mg/dL 0.55-1.02 [facility] Comment on above: The validity of the calculated GFR & GFRAA in patients over 70 years has not been determined. Clinical correlation is essential. Serum or plasma urea nitroge n measurement (mass/volume)Ordered By: Dr. Hernandez on 09-21-2022 Urea nitrogen [Mass/Vol] 14 mg/dL 7-18 [facility] Squamous epithelial cells de tection in urine sediment by light microscopyOrdered By: Dr. Hernandez on 09-21-2022 Epithelial cells.squamous LM Ql (Urine sed) 10-25 SEEN /hpf 5-10 [facility] Thin prep Papanicolaou smear with manual screeningOrdered By: Dr. Hernandez on 09-21-2022 Thin prep Papanicolaou smear with manual screening 5 5-15 [facility] Urine blood detectionOrdered By: Dr. Hernandez on 09-21-2022 RBC Ql (U) 250 /ul Negative [facility] RBC Ql (U) 5-10 SEEN /hpf 0-5 [facility] Urine clarityOrdered By: Dr. Hernandez on 09-21-2022 Clarity (U) Cloudy Clear [facility] Urine color determinationOrd ered By: Dr. Hernandez on 09-21-2022 Color (U) Yellow Yellow [facility] Urine glucose detectionOrder ed By: Dr. Hernandez on 09-21-2022 Glucose Ql (U) Normal mg/dl Normal [facility] Urine leukocyte esterase det ection by dipstickOrdered By: Dr. Hernandez on 09-21-2022 Leukocyte esterase Test strip Ql (U) 500 /ul Negative [facility] Urine pHOrdered By: Dr. Navin monte on 09-21-2022 pH (U) 5.0 [pH] 5.0 - 8.0 [facility] Urine sediment bacteria coun t by microscopy (number/high power field)Ordered By: Dr. Hernandez on 09-21-2022 Bacteria LM.HPF (Urine sed) [#/Area] 0 /[HPF] None Seen [facility] Urine specific gravity measu rementOrdered By: Dr. Hernandez on 09-21-2022 Specific gravity (U) [Rel density] 1.020 1.002-1.030 [facility] Urobilinogen Auto test strip Ql (U)Ordered By: Dr. Hernandez on 09-21-2022 Urobilinogen Ql (U) Normal mg/dl Normal [facility] UA DIP, URINE (POC)on 2022 BILIRUBIN UA (POCT) Negative Negative [facility] CLARITY UA (POCT) Slightly Cloudy [facility] COLOR UA (POCT) Light yellow [facility] GLUCOSE UA (POCT) Negative Negative mg/dL [facility] HEMOGLOBIN/BLOOD UA (POCT) Large Abnormal Negative [facility] KETONE UA (POCT) Negative Negative mg/dL [facility] LEUKOCYTES UA (POCT) Small Abnormal Negative [facility] NITRITE UA (POCT) Positive Abnormal Negative [facility] PH UA (POCT) 6.0 4.5 - 8.0 [facility] Protein Ql (U) 100 mg/dL Abnormal Negative mg/dL [facility] SPECIFIC GRAVITY UA (POCT) >=1.030 1.005 - 1.030 [facility] UROBILINOGEN UA (POCT) 1.0 E.U./dL Normal E.U./[facility] PA and Later al and Obliqueon 06-15-2022 IMPRESSION: Mild degenerative changes in the right hand as described above. No acute fracture seen. [employer]: [id number] Transcribe Date/Time: Jun 15 2022 3:49P Dictated by : LINN DARDEN MD This examination was interpreted and the report reviewed and electronically signed by: LINN DARDEN MD on Jun 15 2022 4:00PM [facility] DIV[facility] OF RADIOLOGY * * *Final Report* [...] soft tissue swelling. DIVISION OF RADIOLOGY Provider, [facility] - 06/15/2022 * * *Final Report* * [...] as described above. No acute fracture seen. Machine [employer]: PSCB Transcribe Date/Time: Jun 15 2022 3:49P Dictated by : LINN DARDEN MD This examination was interpreted and the report reviewed and electronically signed by: LINN DARDEN MD on Jun 15 2022 4:00PM EST [facility] Radiology Study observation (narrative) [facility] XR Hand - right PA and Later al and ObliqueOrdered By: Ccf Provider on 06-15-2022 [facility] GLUCOSE, BLOOD (POC)on 02-16 Glucose [Mass/Vol] 240 mg/dL Abnormal 74 - 99 mg/dL [facility] Absolute lymphocyte counton 02-11-2022 Lymphocytes Auto (Unsp spec) [#/Vol] 3.04 10*3/uL 0.83-4.51 [facility] Work Phone: Basophil percentageon 2021 Basophils/100 WBC (Bld) 0.8 % 0-1 [facility] Work Phone: Chloride [Moles/Vol] 103 mmol/L 98-107 [facility] Work Phone: Eosinophils/100 WBC (Bld) 2.4 % 0-5 [facility] Work Phone: Glucose [Mass/Vol] 261 mg/dL 74-106 [facility] Work Phone: Comment on above: Glucose result great er than or equal to 200 mg/dLsuggests DIABETES MELLITUS per A.D.A. criteria. Neutrophils (Bld) [#/Vol] 3.9 10*3/uL 2.0-7.7 [facility] Work Phone: Neutrophils/100 WBC (Bld) 49.5 % 47-70 [facility] Work Phone: Potassium [Moles/Vol] 4.0 mmol/L 3.5-5.1 [facility] Work Phone: Sodium [Moles/Vol] 135 mmol/L 136-145 [facility] Work Phone: WBC (Bld) [#/Vol] 7.8 10*3/uL 4.4-11.0 [facility] Work Phone: Blood erythrocytes count (nu mber/volume)on 02-11-2022 RBC (Bld) [#/Vol] 4.70 10*6/uL 4.2-5.4 [facility] Work Phone: Blood hemoglobin measurement (mass/volume)on 02-11-2022 Hemoglobin (Bld) [Mass/Vol] 11.3 g/dL 12.0-15.0 [facility] Work Phone: Blood lymphocytes/100 leukoc yteson 02-11-2022 Lymphocytes/100 WBC (Bld) 39.1 % 19-41 [facility] Work Phone: Blood monocytes/100 leukocyt eson 02-11-2022 Monocytes/100 WBC (Bld) 6.0 % 0-10 [facility] Work Phone: Blood platelet mean volumeon 02-11-2022 Platelet mean volume (Bld) [Entitic vol] 10.1 fL 6.2-12.0 [facility] Work Phone: Determination of erythrocyte mean corpuscular volume (MCV)on 02-11-2022 MCV (RBC) [Entitic vol] 80.0 fL 81-99 [facility] Work Phone: Glucose Glucometer (BldC) [M ass/Vol]on 02-11-2022 Glucose [Mass/Vol] 350 mg/dL 74-106 [facility] Work Phone: Comment on above: MANAGEMENT OF PATIEN T CARE PER NURSING PROTOCOL Hematocrit Auto (Bld) [Volum e fraction]on 02-11-2022 Hematocrit (Bld) [Volume fraction] 37.6 % 37-47 [facility] Work Phone: Laboratory - Chemistry and C hemistry - challengeon 02-11-2022 CO2 [Moles/Vol] 27.0 mmol/L 21.0-32.0 [facility] Work Phone: Urea nitrogen/Creatinine [Mass ratio] 20.3 mg/mg 10-20 [facility] Work Phone: Laboratory - Hematology and Cell countson 02-11-2022 Erythrocyte distribution width (RBC) [Entitic vol] 46.0 fL 35.1-43.9 [facility] Work Phone: Erythrocyte distribution width (RBC) [Ratio] 16.3 % 11.6-14.6 [facility] Work Phone: Immature granulocytes/100 WBC (Bld) 2.200 % 0.0-0.9 [facility] Work Phone: Comment on above: IG% - Immature Granu locytes (promyelocytes, myelocytes and metamyelocytes) > 1% indicates that a LEFT SHIFT is Present. MCH (RBC) [Entitic mass] 24.0 pg 27.0-32.0 [facility] Work Phone: Nucleated RBC/100 WBC (Bld) [Ratio] 0 % 0-5 [facility] Work Phone: MCHC Auto (RBC) [Mass/Vol]on 02-11-2022 MCHC (RBC) [Mass/Vol] 30.1 g/dL 32-36 [facility] Work Phone: No Panel Informationon 02-11 Estimated Creatinine Clearance Calc 88.83 ml/min [facility] Work Phone: Estimated GFR (MDRD) Amer 150 mL/min >60 [facility] Work Phone: Comment on above: GFR Calc Estimated GFR (MDRD) Non-Af Amer 124 mL/min >60 [facility] Work Phone: Comment on above: Non- GFR Calc Platelets bldon 02-11-2022 Platelets (Bld) [#/Vol] 227 10*3/uL 150-450 [facility] Work Phone: Serum or plasma calcium janie urement (mass/volume)on 02-11-2022 Calcium [Mass/Vol] 8.6 mg/dL 8.5-10.1 [facility] Work Phone: Serum or plasma creatinine m easurement (mass/volume)on 02-11-2022 Creatinine [Mass/Vol] 0.54 mg/dL 0.55-1.02 [facility] Work Phone: Comment on above: The validity of the calculated GFR & GFRAA in patients over 70 years has not been determined. Clinical correlation is essential. Serum or plasma urea nitroge n measurement (mass/volume)on 02-11-2022 Urea nitrogen [Mass/Vol] 11 mg/dL 7-18 [facility] Work Phone: Thin prep Papanicolaou smear with manual screeningon 02-11-2022 Thin prep Papanicolaou smear with manual screening 5 5-15 [facility] Work Phone: Basophil percentageon 2021 Bilirubin [Mass/Vol] 0.40 mg/dL 0.20-1.00 [facility] Work Phone: Comment on above: For patients on eltr ombopag therapy, use of Dimension [place] TBIL is not recommended. Protein [Mass/Vol] 7.8 g/dL 6.4-8.2 [facility] Work Phone: Laboratory - Chemistry and C hemistry - challengeon 02-10-2022 ALP [Catalytic activity/Vol] 164 U/L 45-117 [facility] Work Phone: ALT [Catalytic activity/Vol] 49 U/L 13-56 [facility] Work Phone: Globulin (S) [Mass/Vol] 5.2 g/dL 2.2-4.2 [facility] Work Phone: Serum or plasma albumin janie urement (mass/volume)on 02-10-2022 Albumin [Mass/Vol] 2.6 g/dL 3.2-5.0 [facility] Work Phone: Serum or plasma albumin/glob ulin mass ratioon 02-10-2022 Albumin/Globulin [Mass ratio] 0.5 {ratio} 0.9-2.4 [facility] Work Phone: Thin prep Papanicolaou smear with manual screeningon 02-10-2022 Thin prep Papanicolaou smear with manual screening 56 U/L 15-37 [facility] Work Phone: Absolute lymphocyte counton 02-09-2022 Lymphocytes Auto (Unsp spec) [#/Vol] 2.68 10*3/uL 0.83-4.51 [facility] Work Phone: Amorphous sediment detection in urine sediment by light microscopyon 02-09-2022 Amorphous sediment LM Ql (Urine sed) 1+ URATE [facility] Work Phone: Assessment of wrist artery p atency prior to arterial punctureon 02-09-2022 Arterial patency Wrist artery --pre arterial puncture Positive [facility] Work Phone: Base excesson 02-09-2022 Base excess Calc (BldV) [Moles/Vol] 2 mmol/L -2-2 [facility] Work Phone: Basophil percentageon 2021 Lactate [Moles/Vol] 1.0 mmol/L 0.4-2.0 [facility] Work Phone: Basophil percentage 26.6 mmol/L 22-26 [facility] Work Phone: Basophils/100 WBC (Bld) 96 % 95-99 [facility] Work Phone: Basophil percentage 50-100 SEEN /hpf 0-5 [facility] Work Phone: Basophils/100 WBC (Bld) 0.7 % 0-1 [facility] Work Phone: Bilirubin [Mass/Vol] 0.50 mg/dL 0.20-1.00 [facility] Work Phone: Comment on above: For patients on eltr ombopag therapy, use of Dimension [place] TBIL is not recommended. Chloride [Moles/Vol] 91 mmol/L 98-107 [facility] Work Phone: Eosinophils/100 WBC (Bld) 1.7 % 0-5 [facility] Work Phone: Glucose [Mass/Vol] 629 mg/dL 74-106 [facility] Work Phone: Comment on above: Glucose result great er than or equal to 200 mg/dLsuggests DIABETES MELLITUS per A.D.A. criteria. Lactate [Moles/Vol] 2.3 mmol/L 0.4-2.0 [facility] Work Phone: Comment on above: Critical Result(s) C alled at: 19:11:23 02/09/2022 by: JOSEF BARCENAS. TO AUNG BARAHONA HISTORY PROFESSOR Results read back by same. Neutrophils (Bld) [#/Vol] 5.5 10*3/uL 2.0-7.7 [facility] Work Phone: Neutrophils/100 WBC (Bld) 61.2 % 47-70 [facility] Work Phone: Potassium [Moles/Vol] 5.0 mmol/L 3.5-5.1 [facility] Work Phone: Comment on above: Moderate Hemolysis, Result may be falsely increased. Protein [Mass/Vol] 8.8 g/dL 6.4-8.2 [facility] Work Phone: Sodium [Moles/Vol] 125 mmol/L 136-145 [facility] Work Phone: Comment on above: Critical Result(s) C alled at: 19:13:42 02/09/2022 by: JOSEF BARCENAS TO EDNA AVALOS RN ED. Results read back by same. WBC (Bld) [#/Vol] 9.0 10*3/uL 4.4-11.0 [facility] Work Phone: Bilirubin Test strip Ql (U)o n 02-09-2022 Bilirubin Ql (U) Negative Negative [facility] Work Phone: Blood erythrocytes count (nu mber/volume)on 02-09-2022 RBC (Bld) [#/Vol] 4.94 10*6/uL 4.2-5.4 [facility] Work Phone: Blood hemoglobin measurement (mass/volume)on 02-09-2022 Hemoglobin (Bld) [Mass/Vol] 11.8 g/dL 12.0-15.0 [facility] Work Phone: Blood lymphocytes/100 leukoc yteson 02-09-2022 Lymphocytes/100 WBC (Bld) 29.7 % 19-41 [facility] Work Phone: Blood monocytes/100 leukocyt eson 02-09-2022 Monocytes/100 WBC (Bld) 4.9 % 0-10 [facility] Work Phone: Blood platelet mean volumeon 02-09-2022 Platelet mean volume (Bld) [Entitic vol] 10.3 fL 6.2-12.0 [facility] Work Phone: CO2 (BldA) [Partial pressure ]on 02-09-2022 CO2 (Bld) [Partial pressure] 45.2 mm[Hg] 35-45 [facility] Work Phone: Determination of erythrocyte mean corpuscular volume (MCV)on 02-09-2022 MCV (RBC) [Entitic vol] 76.9 fL 81-99 [facility] Work Phone: Glucose Glucometer (BldC) [M ass/Vol]on 02-09-2022 Glucose [Mass/Vol] mg/dL 74-106 [facility] Work Phone: Comment on above: Dr Winnie GARSIA OF PATIENT CARE PER NURSING PROTOCOL Hematocrit Auto (Bld) [Volum e fraction]on 02-09-2022 Hematocrit (Bld) [Volume fraction] 38.0 % 37-47 [facility] Work Phone: Ketones Test strip Ql (U)on 02-09-2022 Ketones Ql (U) Negative Negative [facility] Work Phone: Laboratory - Chemistry and C hemistry - challengeon 02-09-2022 ALP [Catalytic activity/Vol] 210 U/L 45-117 [facility] Work Phone: ALT [Catalytic activity/Vol] 56 U/L 13-56 [facility] Work Phone: CO2 [Moles/Vol] 27.0 mmol/L 21.0-32.0 [facility] Work Phone: Free T4 [Mass/Vol] 0.50 ng/dL 0.76-1.46 [facility] Work Phone: Globulin (S) [Mass/Vol] 5.9 g/dL 2.2-4.2 [facility] Work Phone: HCG ( test) Ql (U) Negative [facility] Work Phone: Comment on above: Very dilute urine sp ecimens, as indicated by a low specificgravity, may not contain sales representative malt liquors levels of hCG. If is still suspected, a first morning urinespecimen should be collected 48 hours later and tested. Lipase [Catalytic activity/Vol] 96 U/L 73-393 [facility] Work Phone: Urea nitrogen/Creatinine [Mass ratio] 13.3 mg/mg 10-20 [facility] Work Phone: Laboratory - Hematology and Cell countson 02-09-2022 Erythrocyte distribution width (RBC) [Entitic vol] 44.8 fL 35.1-43.9 [facility] Work Phone: Erythrocyte distribution width (RBC) [Ratio] 16.3 % 11.6-14.6 [facility] Work Phone: Immature granulocytes/100 WBC (Bld) 1.800 % 0.0-0.9 [facility] Work Phone: Comment on above: IG% - Immature Granu locytes (promyelocytes, myelocytes and metamyelocytes) > 1% indicates that a LEFT SHIFT is Present. MCH (RBC) [Entitic mass] 23.9 pg 27.0-32.0 [facility] Work Phone: Nucleated RBC/100 WBC (Bld) [Ratio] 0 % 0-5 [facility] Work Phone: MCHC Auto (RBC) [Mass/Vol]on 02-09-2022 MCHC (RBC) [Mass/Vol] 31.1 g/dL 32-36 [facility] Work Phone: Mucus LM Ql (Urine sed)on Mucus Ql (Urine sed) 0 SEEN /hpf [facility] Work Phone: Nitrite Test strip Ql (U)on 02-09-2022 Nitrite Ql (U) Positive Negative [facility] Work Phone: No Panel Informationon 02-09 [facility]: Blood Gas Specimen Type ART [facility] Work Phone: Blood Gas Total CO2 28 mmol/L [facility] Work Phone: Oxygen Delivery Device Room Air [facility] Work Phone: Estimated Creatinine Clearance Calc 45.68 ml/min [facility] Work Phone: Estimated GFR (MDRD) Amer 70 mL/min >60 [facility] Work Phone: Comment on above: GFR Calc Estimated GFR (MDRD) Non-Af Amer 58 mL/min >60 [facility] Work Phone: Comment on above: Non- GFR Calc Free Triiodothyronine (T3) pg/dL 1.7 pg/mL 2.18-3.98 [facility] Work Phone: Thyroid Stimulating Hormone (TSH) 53.20 uIU/mL 0.358-3.74 [facility] Work Phone: Oxygen (BldA) [Partial press ure]on 02-09-2022 Oxygen (Bld) [Partial pressure] 81 mmHG 75-100 [facility] Work Phone: Platelets bldon 02-09-2022 Platelets (Bld) [#/Vol] 271 10*3/uL 150-450 [facility] Work Phone: Protein Test strip Ql (U)on 02-09-2022 Protein Ql (U) 15 mg/dl Negative [facility] Work Phone: Serum or plasma acetone janie urement (mass/volume)on 02-09-2022 Acetone [Mass/Vol] Negative NEG [facility] Work Phone: Serum or plasma albumin janie urement (mass/volume)on 02-09-2022 Albumin [Mass/Vol] 2.9 g/dL 3.2-5.0 [facility] Work Phone: Serum or plasma albumin/glob ulin mass ratioon 02-09-2022 Albumin/Globulin [Mass ratio] 0.5 {ratio} 0.9-2.4 [facility] Work Phone: Serum or plasma calcium janie urement (mass/volume)on 02-09-2022 Calcium [Mass/Vol] 9.7 mg/dL 8.5-10.1 [facility] Work Phone: Serum or plasma creatinine m easurement (mass/volume)on 02-09-2022 Creatinine [Mass/Vol] 1.05 mg/dL 0.55-1.02 [facility] Work Phone: Comment on above: The validity of the calculated GFR & GFRAA in patients over 70 years has not been determined. Clinical correlation is essential. Serum or plasma urea nitroge n measurement (mass/volume)on 02-09-2022 Urea nitrogen [Mass/Vol] 14 mg/dL 7-18 [facility] Work Phone: Squamous epithelial cells de tection in urine sediment by light microscopyon 02-09-2022 Epithelial cells.squamous LM Ql (Urine sed) 0-5 SEEN /hpf 5-10 [facility] Work Phone: Thin prep Papanicolaou smear with manual screeningon 02-09-2022 Thin prep Papanicolaou smear with manual screening 70 U/L 15-37 [facility] Work Phone: Comment on above: Moderate Hemolysis, Result may be falsely increased. Thin prep Papanicolaou smear with manual screening 7 5-15 [facility] Work Phone: Thin prep Papanicolaou smear with manual screening 301 mOsm/KG 275-295 [facility] Work Phone: Urine blood detectionon 01-20 RBC Ql (U) 150 /ul Negative [facility] Work Phone: RBC Ql (U) 25-50 SEEN /hpf 0-5 [facility] Work Phone: Urine clarityon 02-09-2022 Clarity (U) Cloudy Clear [facility] Work Phone: Urine color determinationon 02-09-2022 Color (U) Yellow Yellow [facility] Work Phone: Urine glucose detectionon Glucose Ql (U) 1000 mg/dl Normal [facility] Work Phone: Urine leukocyte esterase det ection by dipstickon 02-09-2022 Leukocyte esterase Test strip Ql (U) 500 /ul Negative [facility] Work Phone: Urine pHon 02-09-2022 pH (U) 6.0 [pH] 5.0 - 8.0 [facility] Work Phone: Urine sediment bacteria coun t by microscopy (number/high power field)on 02-09-2022 Bacteria LM.HPF (Urine sed) [#/Area] 2 /[HPF] None Seen [facility] Work Phone: Urine specific gravity measu rementon 02-09-2022 Specific gravity (U) [Rel density] 1.010 1.002-1.030 [facility] Work Phone: Urobilinogen Auto test strip Ql (U)on 02-09-2022 Urobilinogen Ql (U) Normal mg/dl Normal [facility] Work Phone: pH measurementon 02-09-2022 pH (Unsp spec) 7.38 [pH] 7.35-7.45 [facility] Work Phone: HGB A1Con 11-10-2021 Average glucose Estimated from glycated hemoglobin (Bld) [Mass/Vol] 260 mg/dL [facility] HbA1c (Bld) [Mass fraction] 10.7 % High 4.3 - 5.6 % [facility] Basic metabolic 2000 panelon 11-09-2021 Anion gap [Moles/Vol] 9 mmol/L 9 - 18 mmol/L [facility] Calcium [Mass/Vol] 9.5 mg/dL 8.5 - 10. 2 mg/dL [facility] Chloride [Moles/Vol] 98 mmol/L 97 - 10 5 mmol/L [facility] CO2 [Moles/Vol] 27 mmol/L 22 - 30 mmol/L [facility] Creatinine [Mass/Vol] 0.49 mg/dL Low 0.58 - 0.96 mg/dL [facility] Estimated Glomerular Filtration Rate 112 mL/min/1.73m >=60 mL/min/1.73m [facility] Glucose [Mass/Vol] 244 mg/dL High 74 - 99 mg/dL [facility] Potassium [Moles/Vol] 4.6 mmol/L 3.7 - 5.1 mmol/L [facility] Sodium [Moles/Vol] 134 mmol/L Low 136 - 144 mmol/L [facility] Urea nitrogen [Mass/Vol] 14 mg/dL 7 - 21 mg/dL [facility] XR HAND GENERAL 3V PA/LAT/OB L LEFTon 10-16-2021 [facility] XR Hand - left PA and Latera l and Obliqueon 10-16-2021 IMPRESSION: Findings as described above. [employer]: KARIN Transcribe Date/Time: Oct 16 2021 11:48A Dictated by : LINN DARDEN MD This examination was interpreted and the report reviewed and electronically signed by: LINN DARDEN MD on Oct 16 2021 11:53AM [facility] DIVISION OF RADIOLOGY * * *Final Report* [...] soft tissue swelling. DIVISION OF RADIOLOGY Provider, Eloise Kennedi Lamb - 10/16/2021 * * *Final Report* * [...] swelling. IMPRESSION IMPRESSION: Findings as described above. [employer]: PSCB Transcribe Date/Time: Oct 16 2021 11:48A Dictated by : LINN DARDEN MD This examination was interpreted and the report reviewed and electronically signed by: LINN DARDEN MD on Oct 16 2021 11:53AM EST [facility] Radiology Study observation (narrative) [facility] XR Hand - left PA and Latera l and ObliqueOrdered By: Ccf Provider on 10-16-2021 [facility] Culture, urine Bacteria identified Cx Nom (U) Escherichia coli [facility] Work Phone: Laboratory - Microbiology an d Antimicrobial susceptibility Bacteria identified Cx Nom (Bld) No growth in 5 days. [facility] Work Phone: No Panel Information [facility] Vital Signs Date Time Vital Sign Value Performing Clinician Facility 01-11-2025 00:43-0400 Body temperature 98.8 [degF] [employer] Work Phone: [facility] 01-11-2025 00:43-0400 Diastolic blood pressure 64 mm[Hg] [employer] Work Phone: [facility] 01-11-2025 00:43-0400 Heart rate 96 /min [employer] Work Phone: [facility] 01-11-2025 00:43-0400 Respiratory rate 22 /min [employer] Work Phone: [facility] 01-11-2025 00:43-0400 SaO2% (BldA) [Mass fraction] 100 % [employer] Work Phone: [facility] 01-11-2025 00:43-0400 Systolic blood pressure 128 mm[Hg] [employer] Work Phone: [facility] 01-10-2025 22:13-0400 Body height 154.94 cm [employer] Work Phone: [facility] 01-10-2025 22:13-0400 Body mass index (BMI) [Ratio] 46.1 kg/m2 [employer] Work Phone: [facility] 01-10-2025 22:13-0400 Body weight 110.85 kg [employer] Work Phone: [facility] 01-10-2025 22:13-0400 Inhaled oxygen flow rate 3 L/min [employer] Work Phone: [facility] 12-30-2024 10:43-0400 Body temperature 98.2 [degF] [employer] Work Phone: [facility] 12-30-2024 10:43-0400 Diastolic blood pressure 70 mm[Hg] [employer] Work Phone: [facility] 12-30-2024 10:43-0400 Heart rate 92 /min [employer] Work Phone: [facility] 12-30-2024 10:43-0400 Respiratory rate 16 /min [employer] Work Phone: [facility] 12-30-2024 10:43-0400 SaO2% (BldA) [Mass fraction] 99 % [employer] Work Phone: [facility] 12-30-2024 10:43-0400 Systolic blood pressure 128 mm[Hg] [employer] Work Phone: [facility] 11-03-2024 23:17-0400 Body temperature 97.3 [degF] [employer] Work Phone: [facility] 11-03-2024 23:17-0400 Diastolic blood pressure 85 mm[Hg] [employer] Work Phone: [facility] 11-03-2024 23:17-0400 Heart rate 98 /min [employer] Work Phone: [facility] 11-03-2024 23:17-0400 Respiratory rate 18 /min [employer] Work Phone: [facility] 11-03-2024 23:17-0400 SaO2% (BldA) [Mass fraction] 97 % [employer] Work Phone: [facility] 11-03-2024 23:17-0400 Systolic blood pressure 106 mm[Hg] [employer] Work Phone: [facility] 11-03-2024 21:01-0400 Body height 154.94 cm [employer] Work Phone: [facility] 11-03-2024 21:01-0400 Body mass index (BMI) [Ratio] 46.3 kg/m2 [employer] Work Phone: [facility] 11-03-2024 21:01-0400 Body weight 111.2 kg [employer] Work Phone: [facility] 10-30-2024 09:22-0400 Body mass index (BMI) [Ratio] 44.6 kg/m2 [employer] Work Phone: [facility] 10-30-2024 09:22-0400 Body temperature 95.9 [degF] [employer] Work Phone: [facility] 10-30-2024 09:22-0400 Body weight 107.04 kg [employer] Work Phone: [facility] 10-30-2024 09:22-0400 Diastolic blood pressure 81 mm[Hg] [employer] EXECUTIVE Work Phone: [facility] 10-30-2024 09:22-0400 Heart rate 89 /min [employer]IVE Work Phone: [facility] 10-30-2024 09:22-0400 Inhaled oxygen flow rate 2 L/min [employer]IVE Work Phone: [facility] 10-30-2024 09:22-0400 Respiratory rate 20 /min [employer]IVE Work Phone: [facility] 10-30-2024 09:22-0400 SaO2% (BldA) [Mass fraction] 99 % [employer] EX[employer]IVE Work Phone: [facility] 10-30-2024 09:22-0400 Systolic blood pressure 147 mm[Hg] [employer] EXEC[employer]IVE Work Phone: [facility] 10-06-2024 12:53-0400 Body height 154.94 cm [employer] EXEC[employer]IVE Work Phone: [facility] 10-06-2024 12:53-0400 Body weight 108.86 kg [employer]IVE Work Phone: [facility] 10-06-2024 12:53-0400 Heart rate 95 /min [employer] EXEC[employer]IVE Work Phone: [facility] 10-06-2024 12:53-0400 SaO2% (BldA) [Mass fraction] 98 % [employer] EXEC[employer]IVE Work Phone: [facility] 09-30-2024 02:03-0400 Body temperature 98 [degF] [employer]IVE Work Phone: [facility] 09-30-2024 02:03-0400 Diastolic blood pressure 66 mm[Hg] [employer] EXEC[employer]IVE Work Phone: [facility] 09-30-2024 02:03-0400 Heart rate 81 /min [employer] EXEC[employer]IVE Work Phone: [facility] 09-30-2024 02:03-0400 Respiratory rate 18 /min [employer] EXEC[employer]IVE Work Phone: [facility] 09-30-2024 02:03-0400 SaO2% (BldA) [Mass fraction] 97 % [employer] EXEC[employer]IVE Work Phone: [facility] 09-30-2024 02:03-0400 Systolic blood pressure 121 mm[Hg] [employer] EXEC[employer]IVE Work Phone: [facility] 09-30-2024 00:34-0400 Body height 154.94 cm [employer] EXEC[employer]IVE Work Phone: [facility] 09-30-2024 00:34-0400 Body mass index (BMI) [Ratio] 43.2 kg/m2 [employer]IVE Work Phone: [facility] 09-30-2024 00:34-0400 Body weight 103.7 kg [employer] EXEC[employer]IVE Work Phone: [facility] 09-24-2024 13:08-0500 Body mass index (BMI) [Ratio] 45.3 kg/m2 [employer]IVE Work Phone: [facility] 09-24-2024 13:08-0500 Body weight 108.86 kg [employer] EXEC[employer]IVE Work Phone: [facility] 09-24-2024 13:08-0500 Diastolic blood pressure 84 mm[Hg] [employer] EXECUTIVE Work Phone: [facility] 09-24-2024 13:08-0500 Heart rate 88 /min [employer] EXEC[employer]IVE Work Phone: [facility] 09-24-2024 13:08-0500 Inhaled oxygen flow rate 2 L/min [employer] EXEC[employer]IVE Work Phone: [facility] 09-24-2024 13:08-0500 SaO2% (BldA) [Mass fraction] 95 % [employer] EXECUTIVE Work Phone: [facility] 09-24-2024 13:08-0500 Systolic blood pressure 135 mm[Hg] [employer] EXECUTIVE Work Phone: [facility] 09-04-2024 08:46-0500 Body mass index (BMI) [Ratio] 42.9 kg/m2 [employer] EXEC[employer]IVE Work Phone: [facility] 09-04-2024 08:46-0500 Body temperature 97.4 [degF] [employer] EXEC[employer]IVE Work Phone: [facility] 09-04-2024 08:46-0500 Body weight 102.96 kg [employer] EXECUTIVE Work Phone: [facility] 09-04-2024 08:46-0500 Diastolic blood pressure 83 mm[Hg] [employer] EXEC[employer]IVE Work Phone: [facility] 09-04-2024 08:46-0500 Heart rate 102 /min [employer] EXECUTIVE Work Phone: [facility] 09-04-2024 08:46-0500 Inhaled oxygen flow rate 2 L/min [employer] EX[employer]IVE Work Phone: [facility] 09-04-2024 08:46-0500 Respiratory rate 20 /min [employer] EXECUTIVE Work Phone: [facility] 09-04-2024 08:46-0500 SaO2% (BldA) [Mass fraction] 99 % [employer] EXEC[employer]IVE Work Phone: [facility] 09-04-2024 08:46-0500 Systolic blood pressure 126 mm[Hg] [employer] EXECUTIVE Work Phone: [facility] 09-03-2024 14:30-0500 Diastolic blood pressure 72 mm[Hg] Blas Merrill MD Work Phone: [facility] 09-03-2024 14:30-0500 Heart rate 92 /min Blas Merrill MD Work Phone: [facility] 09-03-2024 14:30-0500 Respiratory rate 24 /min Blas Merrill MD Work Phone: [facility] 09-03-2024 14:30-0500 SaO2% (BldA) [Mass fraction] 97 % Blas Merrill MD Work Phone: [facility] 09-03-2024 14:30-0500 Systolic blood pressure 126 mm[Hg] Blas Merrill MD Work Phone: [facility] 09-03-2024 13:57-0500 Body temperature 98.01 [degF] Blas Merrill MD Work Phone: [facility] 09-03-2024 12:08-0500 Body height 154.9 cm Blas Merrill MD Work Phone: [facility] 08-27-2024 14:00-0500 Body height 154.9 cm Scott Berrios MD, MPH Work Phone: [facility] 08-27-2024 14:00-0500 Body mass index (BMI) [Ratio] 45.65 kg/m2 Scott Berrios MD, MPH Work Phone: 9(879)596-285213 [address] 08-27-2024 14:00-0500 Body temperature 97.3 [degF] Scott Berrios MD, MPH Work Phone: 6(690)549-249413 [address] 08-27-2024 14:00-0500 Body weight 109.54 kg Scott Berrios MD, MPH Work Phone: 7(275)282-415413 [address] 08-27-2024 14:00-0500 Diastolic blood pressure 67 mm[Hg] Scott Berrios MD, MPH Work Phone: 8(858)194-308813 [address] 08-27-2024 14:00-0500 Heart rate 106 /min Scott Berrios MD, MPH Work Phone: 6(365)319-729313 [address] 08-27-2024 14:00-0500 Respiratory rate 18 /min Scott Berrios MD, MPH Work Phone: 1(989)975-386634 [place] [address] 08-27-2024 14:00-0500 SaO2% (BldA) [Mass fraction] 96 % Scott Berrios MD, MPH Work Phone: 3(472)135-840034 [place] [address] 08-27-2024 14:00-0500 Systolic blood pressure 142 mm[Hg] Scott Berrios MD, MPH Work Phone: 5(035)777-141634 [place] [address] 07-30-2024 13:34-0500 Body height 155.2 cm Scott Berrios MD, MPH Work Phone: 4(464)422-293834 [place] [address] 07-30-2024 13:34-0500 Body mass index (BMI) [Ratio] 44.16 kg/m2 Scott Berrios MD, MPH Work Phone: 4(114)059-015734 [place] [address] 07-30-2024 13:34-0500 Body temperature 97.5 [degF] Scott Berrios MD, MPH Work Phone: 9(109)246-527634 [place] [address] 07-30-2024 13:34-0500 Body weight 106.37 kg Scott Berrios MD, MPH Work Phone: 3(130)814-759134 [place] [address] 07-30-2024 13:34-0500 Diastolic blood pressure 56 mm[Hg] Scott Berrios MD, MPH Work Phone: 2(159)479-157334 [place] [address] 07-30-2024 13:34-0500 Heart rate 94 /min Scott Berrios MD, MPH Work Phone: 6(206)726-012434 [place] [address] 07-30-2024 13:34-0500 Respiratory rate 16 /min Scott Berrios MD, MPH Work Phone: 2(546)941-509934 [place] [address] 07-30-2024 13:34-0500 SaO2% (BldA) [Mass fraction] 93 % Scott Berrios MD, MPH Work Phone: 4(163)287-925834 [place] [address] 07-30-2024 13:34-0500 Systolic blood pressure 112 mm[Hg] Scott Berrios MD, MPH Work Phone: [facility] 07-30-2024 11:54-0500 Body height 155.2 cm Blas Rod MD Work Phone: [facility] Comment on above: with shoes 07-30-2024 11:54-0500 Body mass index (BMI) [Ratio] 44.16 kg/m2 Blas Rod MD Work Phone: [facility] 07-30-2024 11:54-0500 Body temperature 97.5 [degF] Blas Rod MD Work Phone: [facility] 07-30-2024 11:54-0500 Body weight 106.37 kg Blas Rod MD Work Phone: [facility] Comment on above: with shoes 07-30-2024 11:54-0500 Diastolic blood pressure 56 mm[Hg] Blas Rod MD Work Phone: [facility] 07-30-2024 11:54-0500 Heart rate 94 /min Blas Rod MD Work Phone: [facility] 07-30-2024 11:54-0500 Respiratory rate 16 /min Blas Rod MD Work Phone: [facility] 07-30-2024 11:54-0500 SaO2% (BldA) [Mass fraction] 93 % Blas Rod MD Work Phone: [facility] 07-30-2024 11:54-0500 Systolic blood pressure 112 mm[Hg] Blas Rod MD Work Phone: [facility] 07-29-2024 15:07-0500 Body temperature 97 [degF] [employer] EXECUTIVE Work Phone: [facility] 07-29-2024 15:07-0500 Diastolic blood pressure 81 mm[Hg] [employer] EXECUTIVE Work Phone: [facility] 07-29-2024 15:07-0500 Heart rate 69 /min [employer] EXECUTIVE Work Phone: [facility] 07-29-2024 15:07-0500 Respiratory rate 16 /min [employer] EXECUTIVE Work Phone: [facility] 07-29-2024 15:07-0500 SaO2% (BldA) [Mass fraction] 95 % [employer] EXECUTIVE Work Phone: [facility] 07-29-2024 15:07-0500 Systolic blood pressure 92 mm[Hg] [employer] EXECUTIVE Work Phone: [facility] 07-29-2024 15:00-0500 Inhaled oxygen flow rate 2 L/min [employer] EXECUTIVE Work Phone: [facility] 07-29-2024 12:43-0500 Body mass index (BMI) [Ratio] 44.1 kg/m2 [employer] EXECUTIVE Work Phone: [facility] 07-29-2024 12:43-0500 Body weight 106 kg [employer] EXECUTIVE Work Phone: [facility] 07-28-2024 10:20-0500 Body mass index (BMI) [Ratio] 44.7 kg/m2 [employer] EXECUTIVE Work Phone: [facility] 07-28-2024 10:20-0500 Body weight 107.5 kg [employer] EXECUTIVE Work Phone: [facility] 07-28-2024 10:20-0500 Diastolic blood pressure 73 mm[Hg] [employer] EXECUTIVE Work Phone: [facility] 07-28-2024 10:20-0500 Heart rate 86 /min [employer] EXECUTIVE Work Phone: [facility] 07-28-2024 10:20-0500 SaO2% (BldA) [Mass fraction] 93 % [employer] EXECUTIVE Work Phone: [facility] 07-28-2024 10:20-0500 Systolic blood pressure 109 mm[Hg] [employer] EXECUTIVE Work Phone: [facility] 06-23-2024 15:45-0500 Diastolic blood pressure 52 mm[Hg] Blas Merrill MD Work Phone: [facility] 06-23-2024 15:45-0500 Heart rate 85 /min Blas Merrill MD Work Phone: [facility] 06-23-2024 15:45-0500 Respiratory rate 22 /min Blas Merrill MD Work Phone: [facility] 06-23-2024 15:45-0500 SaO2% (BldA) [Mass fraction] 97 % Blas Merrill MD Work Phone: [facility] 06-23-2024 15:45-0500 Systolic blood pressure 111 mm[Hg] Blas Merrill MD Work Phone: [facility] 06-23-2024 15:00-0500 Body temperature 97.81 [degF] Blas Merrill MD Work Phone: [facility] 06-23-2024 12:23-0500 Body height 152.4 cm Blas Merrill MD Work Phone: [facility] 06-08-2024 12:59-0500 Body mass index (BMI) [Ratio] 44 kg/m2 [employer] EXECUTIVE Work Phone: [facility] 06-08-2024 12:59-0500 Body weight 105.68 kg [employer] EXECUTIVE Work Phone: [facility] 06-08-2024 12:59-0500 Diastolic blood pressure 67 mm[Hg] [employer] EXECUTIVE Work Phone: [facility] 06-08-2024 12:59-0500 Heart rate 87 /min [employer] EXECUTIVE Work Phone: [facility] 06-08-2024 12:59-0500 Inhaled oxygen flow rate 2 L/min [employer] EXECUTIVE Work Phone: [facility] 06-08-2024 12:59-0500 SaO2% (BldA) [Mass fraction] 96 % [employer] EXECUTIVE Work Phone: [facility] 06-08-2024 12:59-0500 Systolic blood pressure 95 mm[Hg] [employer] EXECUTIVE Work Phone: [facility] 05-07-2024 07:45-0400 Body height 152.3 cm Blas Rod MD Work Phone: [facility] Comment on above: w/o shoes 05-07-2024 07:45-0400 Body mass index (BMI) [Ratio] 46.35 kg/m2 Blas Rod MD Work Phone: [facility] 05-07-2024 07:45-0400 Body temperature 97.81 [degF] Blas Rod MD Work Phone: [facility] 05-07-2024 07:45-0400 Body weight 107.5 kg Blas Rod MD Work Phone: [facility] Comment on above: w/o shoes 05-07-2024 07:45-0400 Diastolic blood pressure 67 mm[Hg] Blas Rod MD Work Phone: [facility] 05-07-2024 07:45-0400 Heart rate 87 /min Blas Rod MD Work Phone: [facility] 05-07-2024 07:45-0400 Respiratory rate 18 /min Blas Rod MD Work Phone: [facility] 05-07-2024 07:45-0400 SaO2% (BldA) [Mass fraction] 95 % Blas Rod MD Work Phone: [facility] Comment on above: 2 liters of oxygen 05-07-2024 07:45-0400 Systolic blood pressure 128 mm[Hg] Blas Rod MD Work Phone: [facility] 03-30-2024 02:53-0400 Blood Pressure Location ALDA ABBASI MD [facility] 03-30-2024 02:53-0400 Blood Pressure Method ALDA ABBASI MD [facility] 03-30-2024 02:53-0400 Body height 155 cm ALDA ABBASI MD [facility] 03-30-2024 02:53-0400 Body temperature 97.16 [degF] ALDA ABBASI MD [facility] 03-30-2024 02:53-0400 Body weight 111 kg ALDA ABBASI MD [facility] 03-30-2024 02:53-0400 Diastolic Blood Pressure Non-Invasive 64 mm[Hg] ALDA ABBASI MD [facility] 03-30-2024 02:53-0400 Heart rate 104 /min ALDA ABBASI MD [facility] 03-30-2024 02:53-0400 Respiratory rate 16 /min ALDA ABBASI MD [facility] 03-30-2024 02:53-0400 Systolic Blood Pressure Non-Invasive 123 mm[Hg] ALDA ABBASI MD [facility] 02-25-2024 12:06-[address] URSULA DONATO MD [facility] 02-25-2024 12:06-[address] URSULA DONATO MD [facility] 02-25-2024 12:06-0400 Diastolic Blood Pressure Non-Invasive 74 mm[Hg] DR URSULA DONATO MD [facility] 02-25-2024 12:06-0400 Heart rate 87 /min DR URSULA DONATO MD [facility] 02-25-2024 12:06-0400 Reason For Taking VItal Signs DR URSULA DONATO MD [facility] 02-25-2024 12:06-0400 Respiratory rate 18 /min DR URSULA DONATO MD [facility] 02-25-2024 12:06-0400 Systolic Blood Pressure Non-Invasive 110 mm[Hg] DR URSULA DONATO MD [facility] 02-25-2024 09:12-[address] URSULA DONATO MD [facility] 02-25-2024 09:12-[address] URSULA DONATO MD [facility] 02-25-2024 09:12-0400 Body temperature 97.88 [degF] DR URSULA DONATO MD [facility] 02-25-2024 09:12-0400 Body weight 108.[address] URSULA DONATO MD [facility] 02-25-2024 09:12-0400 Diastolic Blood Pressure Non-Invasive 66 mm[Hg] DR URSULA DONATO MD [facility] 02-25-2024 09:12-0400 Heart rate 92 /min DR URSULA DONATO MD [facility] 02-25-2024 09:12-0400 Respiratory rate 18 /min DR URSULA DONATO MD [facility] 02-25-2024 09:12-0400 Systolic Blood Pressure Non-Invasive 106 mm[Hg] DR URSULA DONATO MD [facility] 05-17-2023 11:27-0400 Body height 154.9 cm Pacc 1 Work Phone: [facility] 05-17-2023 11:27-0400 Body temperature 97.5 [degF] Pacc 1 Work Phone: [facility] 05-17-2023 11:27-0400 Body weight 120.2 kg Pacc 1 Work Phone: [facility] 05-17-2023 11:27-0400 Diastolic blood pressure 62 mm[Hg] Pacc 1 Work Phone: [facility] 05-17-2023 11:27-0400 Heart rate 94 /min Pacc 1 Work Phone: [facility] 05-17-2023 11:27-0400 SaO2% (BldA) [Mass fraction] 98 % Pacc 1 Work Phone: [facility] 05-17-2023 11:27-0400 Systolic blood pressure 94 mm[Hg] Pacc 1 Work Phone: [facility] 05-07-2023 13:14-0400 Body height 154.9 cm Yessy [place] PA-C Work Phone: [facility] 05-07-2023 13:14-0400 Body temperature 97 [degF] Yessy [place] PA-C Work Phone: [facility] 05-07-2023 13:14-0400 Body weight 120.93 kg Yessy [place] PA-C Work Phone: [facility] 05-07-2023 13:14-0400 Diastolic blood pressure 78 mm[Hg] Yessy Christopher PA-C Work Phone: [facility] 05-07-2023 13:14-0400 Heart rate 101 /min Yessy Christopher PA-C Work Phone: [facility] 05-07-2023 13:14-0400 SaO2% (BldA) [Mass fraction] 95 % Yessy [place] PA-C Work Phone: [facility] 05-07-2023 13:14-0400 Systolic blood pressure 124 mm[Hg] Yessy Christopher PA-C Work Phone: [facility] 05-03-2023 10:04-0400 Body weight 122.33 kg Papa Douglass MD Work Phone: [facility] 05-03-2023 10:04-0400 Diastolic blood pressure 74 mm[Hg] Papa Douglass MD Work Phone: [facility] 05-03-2023 10:04-0400 Heart rate 90 /min Papa Douglass MD Work Phone: [facility] 05-03-2023 10:04-0400 Respiratory rate 16 /min Papa Douglass MD Work Phone: [facility] 05-03-2023 10:04-0400 Systolic blood pressure 126 mm[Hg] Papa Douglass MD Work Phone: [facility] 04-20-2023 09:44-0400 SaO2% (BldA) [Mass fraction] 91 % Dr. Papa Douglass Work Phone: [facility] 04-20-2023 09:00-0400 Body temperature 97 [degF] Dr. Papa Douglass Work Phone: [facility] 04-20-2023 09:00-0400 Diastolic blood pressure 66 mm[Hg] Dr. Papa Douglass Work Phone: [facility] 04-20-2023 09:00-0400 Heart rate 82 /min Dr. Papa Douglass Work Phone: 8(027)837-996638 [place] [address] 04-20-2023 09:00-0400 Respiratory rate 14 /min Dr. Papa Douglass Work Phone: 4(081)019-235938 [place] [address] 04-20-2023 09:00-0400 Systolic blood pressure 110 mm[Hg] Dr. Papa Douglass Work Phone: 0(034)344-871338 [place] [address] 04-20-2023 07:24-0400 Inhaled oxygen flow rate 1 L/min Dr. Papa Douglass Work Phone: 9(898)459-523438 [place] [address] 04-20-2023 03:34-0400 Body mass index (BMI) [Ratio] 49 kg/m2 Dr. Papa Douglass Work Phone: 0(894)377-913938 [place] [address] 04-20-2023 03:34-0400 Body weight 117.[address] Papa Douglass Work Phone: 2(853)931-361638 [place] [address] 04-19-2023 13:49-0400 Body height 154.[address] Papa Douglass Work Phone: 1(154)648-910238 [place] [address] 04-17-2023 09:18-0400 Body mass index (BMI) [Ratio] 49.4 kg/m2 Dr. Papa Douglass Work Phone: 3(108)465-536538 [place] [address] 04-17-2023 09:18-0400 Body temperature 98.4 [degF] Dr. Papa Douglass Work Phone: 8(237)740-991638 [place] [address] 04-17-2023 09:18-0400 Body weight 118.[address] Papa Douglass Work Phone: 1(801)061-620138 [place] [address] 04-17-2023 09:18-0400 Diastolic blood pressure 72 mm[Hg] Dr. Papa Douglass Work Phone: 3(803)226-991938 [place] [address] 04-17-2023 09:18-0400 Heart rate 86 /min Dr. Papa Douglass Work Phone: 1(716)590-077538 [place] [address] 04-17-2023 09:18-0400 Respiratory rate 18 /min Dr. Papa Douglass Work Phone: [facility] 04-17-2023 09:18-0400 SaO2% (BldA) [Mass fraction] 95 % Dr. Papa Douglass Work Phone: [facility] 04-17-2023 09:18-0400 Systolic blood pressure 112 mm[Hg] Dr. Papa Douglass Work Phone: [facility] 03-05-2023 08:40-0400 Diastolic blood pressure 73 mm[Hg] Mari Jernigan DO Work Phone: [facility] 03-05-2023 08:40-0400 Heart rate 86 /min Mari Jernigan DO Work Phone: [facility] 03-05-2023 08:40-0400 SaO2% (BldA) [Mass fraction] 95 % Mari Jernigan DO Work Phone: [facility] 03-05-2023 08:40-0400 Systolic blood pressure 106 mm[Hg] Mari Jernigan DO Work Phone: [facility] 02-18-2023 11:26-0400 Body mass index (BMI) [Ratio] 49 kg/m2 Dr. Papa Douglass Work Phone: [facility] 02-18-2023 11:26-0400 Body temperature 98.1 [degF] Dr. Papa Douglass Work Phone: [facility] 02-18-2023 11:26-0400 Body weight 117.[address] Papa Douglass Work Phone: [facility] 02-18-2023 11:26-0400 Diastolic blood pressure 62 mm[Hg] Dr. Papa Douglass Work Phone: [facility] 02-18-2023 11:26-0400 Heart rate 68 /min Dr. Papa Douglass Work Phone: [facility] 02-18-2023 11:26-0400 Respiratory rate 18 /min Dr. Papa Douglass Work Phone: [facility] 02-18-2023 11:26-0400 SaO2% (BldA) [Mass fraction] 96 % Dr. Papa Douglass Work Phone: [facility] 02-18-2023 11:26-0400 Systolic blood pressure 90 mm[Hg] Dr. Papa Douglass Work Phone: [facility] 01-20-2023 23:17-0400 Diastolic blood pressure 69 mm[Hg] [facility] 01-20-2023 23:17-0400 Heart rate 72 /min [facility] 01-20-2023 23:17-0400 Respiratory rate 18 /min [facility] 01-20-2023 23:17-0400 SaO2% (BldA) [Mass fraction] 99 % [facility] 01-20-2023 23:17-0400 Systolic blood pressure 114 mm[Hg] [facility] 01-20-2023 17:42-0400 Body height 154.94 cm [facility] 01-20-2023 17:42-0400 Body mass index (BMI) [Ratio] 49 kg/m2 [facility] 01-20-2023 17:42-0400 Body temperature 96.9 [degF] [facility] 01-20-2023 17:42-0400 Body weight 117.75 kg [facility] 01-19-2023 08:10-0400 Body weight 116.39 kg Papa Douglass MD Work Phone: [facility] 01-19-2023 08:10-0400 Diastolic blood pressure 76 mm[Hg] Papa Douglass MD Work Phone: [facility] 01-19-2023 08:10-0400 Heart rate 86 /min Papa Douglass MD Work Phone: [facility] 01-19-2023 08:10-0400 Respiratory rate 16 /min Papa Douglass MD Work Phone: [facility] 01-19-2023 08:10-0400 SaO2% (BldA) [Mass fraction] 96 % Papa Douglass MD Work Phone: [facility] 01-19-2023 08:10-0400 Systolic blood pressure 118 mm[Hg] Papa Douglass MD Work Phone: [facility] 01-07-2023 14:04-0400 Diastolic blood pressure 55 mm[Hg] [facility] 01-07-2023 14:04-0400 Systolic blood pressure 114 mm[Hg] [facility] 01-07-2023 12:51-0400 Body height 154.94 cm [facility] 01-07-2023 12:51-0400 Body mass index (BMI) [Ratio] 48.5 kg/m2 [facility] 01-07-2023 12:51-0400 Body temperature 97.9 [degF] [facility] 01-07-2023 12:51-0400 Body weight 116.57 kg [facility] 01-07-2023 12:51-0400 Heart rate 99 /min [facility] 01-07-2023 12:51-0400 Respiratory rate 18 /min [facility] 01-07-2023 12:51-0400 SaO2% (BldA) [Mass fraction] 94 % [facility] 10-25-2022 11:13-0400 Body temperature 97.7 [degF] [facility] 10-25-2022 11:13-0400 Diastolic blood pressure 60 mm[Hg] [facility] 10-25-2022 11:13-0400 Heart rate 75 /min [facility] 10-25-2022 11:13-0400 Respiratory rate 18 /min [facility] 10-25-2022 11:13-0400 SaO2% (BldA) [Mass fraction] 92 % [facility] 10-25-2022 11:13-0400 Systolic blood pressure 106 mm[Hg] [facility] 10-25-2022 08:54-0400 Body height 154.94 cm [facility] 10-25-2022 08:54-0400 Body mass index (BMI) [Ratio] 47.4 kg/m2 [facility] 10-25-2022 08:54-0400 Body weight 113.85 kg [facility] 10-10-2022 05:05-0400 Body height 154.94 cm [facility] 10-10-2022 05:05-0400 Body mass index (BMI) [Ratio] 47.4 kg/m2 [facility] 10-10-2022 05:05-0400 Body temperature 97.2 [degF] [facility] 10-10-2022 05:05-0400 Body weight 113.85 kg [facility] 10-10-2022 05:05-0400 Diastolic blood pressure 98 mm[Hg] [facility] 10-10-2022 05:05-0400 Heart rate 94 /min [facility] 10-10-2022 05:05-0400 Respiratory rate 20 /min [facility] 10-10-2022 05:05-0400 SaO2% (BldA) [Mass fraction] 97 % [facility] 10-10-2022 05:05-0400 Systolic blood pressure 137 mm[Hg] [facility] 10-01-2022 09:04-0400 Body temperature 98.4 [degF] Coco Tannhof PAPER BALER.CASTING ASSISTANT Work Phone: [facility] 10-01-2022 09:04-0400 Body weight 112.49 kg Cocokobi Gonzalezhof PAPER BALER.CASTING ASSISTANT Work Phone: [facility] 10-01-2022 09:04-0400 Diastolic blood pressure 64 mm[Hg] Coco Tannhof PAPER BALER.CASTING ASSISTANT Work Phone: [facility] 10-01-2022 09:04-0400 Heart rate 86 /min Coco Tannhof PAPER BALER.CASTING ASSISTANT Work Phone: [facility] 10-01-2022 09:04-0400 Respiratory rate 16 /min Coco Tannhof PAPER BALER.CASTING ASSISTANT Work Phone: [facility] 10-01-2022 09:04-0400 SaO2% (BldA) [Mass fraction] 98 % Coco Tannhof PAPER BALER.CASTING ASSISTANT Work Phone: [facility] 10-01-2022 09:04-0400 Systolic blood pressure 118 mm[Hg] Coco Gonzalezhof PAPER BALER.CASTING ASSISTANT Work Phone: [facility] 09-27-2022 09:46-0500 Body weight 110.22 kg Coco Gonzalezhof PAPER BALER.CASTING ASSISTANT Work Phone: [facility] 09-27-2022 09:46-0500 Diastolic blood pressure 72 mm[Hg] Coco Gonzalezhof PAPER BALER.CASTING ASSISTANT Work Phone: [facility] 09-27-2022 09:46-0500 Heart rate 78 /min Coco Gonzalezhof PAPER BALER.CASTING ASSISTANT Work Phone: [facility] 09-27-2022 09:46-0500 Respiratory rate 20 /min Coco Gonzalezhof PAPER BALER.CASTING ASSISTANT Work Phone: [facility] 09-27-2022 09:46-0500 SaO2% (BldA) [Mass fraction] 98 % Coco Gonzalezhof PAPER BALER.CASTING ASSISTANT Work Phone: [facility] 09-27-2022 09:46-0500 Systolic blood pressure 120 mm[Hg] Coco Gonzalezhof PAPER BALER.CASTING ASSISTANT Work Phone: [facility] 09-21-2022 18:07-0500 Diastolic blood pressure 78 mm[Hg] [facility] 09-21-2022 18:07-0500 Heart rate 84 /min [facility] 09-21-2022 18:07-0500 Respiratory rate 19 /min [facility] 09-21-2022 18:07-0500 SaO2% (BldA) [Mass fraction] 95 % [facility] 09-21-2022 18:07-0500 Systolic blood pressure 131 mm[Hg] [facility] 09-21-2022 14:10-0500 Body height 154.94 cm [facility] 09-21-2022 14:10-0500 Body mass index (BMI) [Ratio] 47.3 kg/m2 [facility] 09-21-2022 14:10-0500 Body temperature 97.4 [degF] [facility] 09-21-2022 14:10-0500 Body weight 113.67 kg [facility] 09-21-2022 13:37-0500 Body temperature 97.3 [degF] Sabine Borrego APRN.CASTING ASSISTANT Work Phone: [facility] 09-21-2022 13:37-0500 Body weight 114.13 kg Sabine Borrego APRN.CASTING ASSISTANT Work Phone: [facility] 09-21-2022 13:37-0500 Diastolic blood pressure 72 mm[Hg] Sabine Borrego APRN.CASTING ASSISTANT Work Phone: [facility] 09-21-2022 13:37-0500 Heart rate 73 /min Sabine Borrego APRN.CASTING ASSISTANT Work Phone: [facility] 09-21-2022 13:37-0500 Respiratory rate 18 /min Sabine Borrego APRN.CASTING ASSISTANT Work Phone: [facility] 09-21-2022 13:37-0500 SaO2% (BldA) [Mass fraction] 98 % Sabine Borrego APRN.CASTING ASSISTANT Work Phone: [facility] 09-21-2022 13:37-0500 Systolic blood pressure 118 mm[Hg] Sabine Elmo LORENZN.CASTING ASSISTANT Work Phone: [facility] 08-31-2022 15:06-0500 Body temperature 97 [degF] [facility] 08-31-2022 15:06-0500 Diastolic blood pressure 67 mm[Hg] [facility] 08-31-2022 15:06-0500 Heart rate 75 /min [facility] 08-31-2022 15:06-0500 Respiratory rate 16 /min [facility] 08-31-2022 15:06-0500 SaO2% (BldA) [Mass fraction] 94 % [facility] 08-31-2022 15:06-0500 Systolic blood pressure 112 mm[Hg] [facility] 08-31-2022 13:59-0500 Body height 154.94 cm [facility] 08-31-2022 13:59-0500 Body mass index (BMI) [Ratio] 27.3 kg/m2 [facility] 08-31-2022 13:59-0500 Body weight 65.77 kg [facility] 08-30-2022 16:22-0500 Diastolic blood pressure 58 mm[Hg] Dionne Turner MD Work Phone: [facility] 08-30-2022 16:22-0500 Heart rate 75 /min Dionne Turner MD Work Phone: [facility] 08-30-2022 16:22-0500 SaO2% (BldA) [Mass fraction] 95 % Dionne Turner MD Work Phone: [facility] 08-30-2022 16:22-0500 Systolic blood pressure 110 mm[Hg] Dionne Turner MD Work Phone: [facility] 08-30-2022 14:03-0500 Body weight 110.68 kg Dionne Turner MD Work Phone: [facility] 08-12-2022 13:18-0500 Body height 154.94 cm [facility] 08-12-2022 13:18-0500 Body mass index (BMI) [Ratio] 46.3 kg/m2 [facility] 08-12-2022 13:18-0500 Body temperature 96.5 [degF] [facility] 08-12-2022 13:18-0500 Body weight 111.13 kg [facility] 08-12-2022 13:18-0500 Diastolic blood pressure 70 mm[Hg] [facility] 08-12-2022 13:18-0500 Heart rate 92 /min [facility] 08-12-2022 13:18-0500 Respiratory rate 18 /min [facility] 08-12-2022 13:18-0500 SaO2% (BldA) [Mass fraction] 98 % [facility] 08-12-2022 13:18-0500 Systolic blood pressure 129 mm[Hg] [facility] 08-07-2022 06:59-0500 Body weight 110.95 kg Mela Murphy PAPER BALER.CASTING ASSISTANT Work Phone: [facility] 08-07-2022 06:59-0500 Diastolic blood pressure 68 mm[Hg] Mela Murphy PAPER BALER.CASTING ASSISTANT Work Phone: [facility] 08-07-2022 06:59-0500 Systolic blood pressure 120 mm[Hg] Mela Murphy PAPER BALER.CASTING ASSISTANT Work Phone: [facility] 07-18-2022 10:37-0500 Body height 154.9 cm Marissa Podlogar PAPER BALER.CASTING ASSISTANT Work Phone: [facility] 07-18-2022 10:37-0500 Body temperature 96.69 [degF] Marissa Podlogar PAPER BALER.CASTING ASSISTANT Work Phone: [facility] 07-18-2022 10:37-0500 Body weight 112.95 kg Marissa Podlogar PAPER BALER.CASTING ASSISTANT Work Phone: [facility] 07-18-2022 10:37-0500 Diastolic blood pressure 60 mm[Hg] Marissa Podlogar PAPER BALER.CASTING ASSISTANT Work Phone: [facility] 07-18-2022 10:37-0500 Heart rate 80 /min Marissa Podlogar PAPER BALER.CASTING ASSISTANT Work Phone: [facility] 07-18-2022 10:37-0500 Respiratory rate 16 /min Marissa Podlogar PAPER BALER.CASTING ASSISTANT Work Phone: [facility] 07-18-2022 10:37-0500 SaO2% (BldA) [Mass fraction] 97 % Marissa Podlogar PAPER BALER.CASTING ASSISTANT Work Phone: [facility] 07-18-2022 10:37-0500 Systolic blood pressure 136 mm[Hg] Marissa Podlogar PAPER BALER.CASTING ASSISTANT Work Phone: [facility] 06-28-2022 09:51-0500 Body weight 108.86 kg Coco Waters PAPER BALER.CASTING ASSISTANT Work Phone: [facility] 06-28-2022 09:51-0500 Diastolic blood pressure 66 mm[Hg] Coco Tannhof PAPER BALER.CASTING ASSISTANT Work Phone: [facility] 06-28-2022 09:51-0500 Heart rate 88 /min Coco Tannhof PAPER BALER.CASTING ASSISTANT Work Phone: [facility] 06-28-2022 09:51-0500 Respiratory rate 16 /min Coco Tannhof PAPER BALER.CASTING ASSISTANT Work Phone: [facility] 06-28-2022 09:51-0500 SaO2% (BldA) [Mass fraction] 98 % Coco Tannhof PAPER BALER.CASTING ASSISTANT Work Phone: [facility] 06-28-2022 09:51-0500 Systolic blood pressure 112 mm[Hg] Coco Tannhof PAPER BALER.CASTING ASSISTANT Work Phone: [facility] 06-26-2022 09:39-0500 Body temperature 97.81 [degF] Génesis Athy PA-C Work Phone: [facility] 06-26-2022 09:39-0500 Body weight 106.59 kg Génesis Athy PA-C Work Phone: [facility] 06-26-2022 09:39-0500 Diastolic blood pressure 62 mm[Hg] Génesis Athy PA-C Work Phone: [facility] 06-26-2022 09:39-0500 Heart rate 104 /min Génesis Athy PA-C Work Phone: [facility] 06-26-2022 09:39-0500 Respiratory rate 18 /min Génesis Athy PA-C Work Phone: [facility] 06-26-2022 09:39-0500 SaO2% (BldA) [Mass fraction] 95 % Génesis Athy PA-C Work Phone: [facility] 06-26-2022 09:39-0500 Systolic blood pressure 122 mm[Hg] Génesis Athy PA-C Work Phone: [facility] 06-21-2022 08:10-0500 Body weight 108.41 kg Coco Tannhof PAPER BALER.CASTING ASSISTANT Work Phone: [facility] 06-21-2022 08:10-0500 Diastolic blood pressure 74 mm[Hg] Coco Gonzalezhof PAPER BALER.CASTING ASSISTANT Work Phone: [facility] 06-21-2022 08:10-0500 Heart rate 83 /min Coco Gonzalezhof PAPER BALER.CASTING ASSISTANT Work Phone: [facility] 06-21-2022 08:10-0500 Respiratory rate 16 /min Coco Gonzalezhof PAPER BALER.CASTING ASSISTANT Work Phone: [facility] 06-21-2022 08:10-0500 SaO2% (BldA) [Mass fraction] 99 % Coco Gonzalezhof PAPER BALER.CASTING ASSISTANT Work Phone: [facility] 06-21-2022 08:10-0500 Systolic blood pressure 112 mm[Hg] Coco Gonzalezhof PAPER BALER.CASTING ASSISTANT Work Phone: [facility] 06-17-2022 13:04-0500 Heart rate 102 /min [facility] 06-17-2022 13:04-0500 SaO2% (BldA) [Mass fraction] 94 % [facility] 06-17-2022 12:33-0500 Body height 154.94 cm [facility] Work Phone: 06-17-2022 12:33-0500 Body mass index (BMI) [Ratio] 45.7 kg/m2 [facility] 06-17-2022 12:33-0500 Body temperature 96.8 [degF] [facility] 06-17-2022 12:33-0500 Body weight 109.76 kg [facility] 06-17-2022 12:33-0500 Diastolic blood pressure 75 mm[Hg] [facility] 06-17-2022 12:33-0500 Respiratory rate 15 /min [facility] 06-17-2022 12:33-0500 Systolic blood pressure 145 mm[Hg] [facility] 06-08-2022 21:53-0500 Respiratory rate 18 /min Dr. Papa Douglass Work Phone: [facility] 06-08-2022 21:16-0500 Body height 154.[address] Papa Douglass Work Phone: [facility] Work Phone: 06-08-2022 21:16-0500 Body mass index (BMI) [Ratio] 45.3 kg/m2 Dr. Papa Douglass Work Phone: [facility] 06-08-2022 21:16-0500 Body temperature 97.2 [degF] Dr. Papa Douglass Work Phone: [facility] 06-08-2022 21:16-0500 Body weight 108.[address] Papa Douglass Work Phone: [facility] 06-08-2022 21:16-0500 Diastolic blood pressure 64 mm[Hg] Dr. Papa Douglass Work Phone: [facility] 06-08-2022 21:16-0500 Heart rate 74 /min Dr. Papa Douglass Work Phone: [facility] 06-08-2022 21:16-0500 SaO2% (BldA) [Mass fraction] 96 % Dr. Papa Douglass Work Phone: [facility] 06-08-2022 21:16-0500 Systolic blood pressure 137 mm[Hg] Dr. Papa Douglass Work Phone: [facility] 03-19-2022 11:34-0400 Body weight 107.05 kg Coco Waters APRN.CASTING ASSISTANT Work Phone: [facility] 03-19-2022 11:34-0400 Diastolic blood pressure 62 mm[Hg] Coco Waters APRN.CASTING ASSISTANT Work Phone: [facility] 03-19-2022 11:34-0400 Heart rate 100 /min Coco Waters APRN.CASTING ASSISTANT Work Phone: [facility] 03-19-2022 11:34-0400 Respiratory rate 16 /min Coco Tannhof PAPER BALER.CASTING ASSISTANT Work Phone: [facility] 03-19-2022 11:34-0400 SaO2% (BldA) [Mass fraction] 98 % Coco Tannhof PAPER BALER.CASTING ASSISTANT Work Phone: [facility] 03-19-2022 11:34-0400 Systolic blood pressure 108 mm[Hg] Coco Gonzalezhof PAPER BALER.CASTING ASSISTANT Work Phone: [facility] 03-14-2022 13:03-0400 Body weight 106.14 kg Gretchen Cioce PAPER BALER.CASTING ASSISTANT Work Phone: [facility] 02-16-2022 12:24-0400 Body temperature 96.49 [degF] Bia Jacinto PAPER BALER.CASTING ASSISTANT Work Phone: [facility] 02-16-2022 12:24-0400 Body weight 108.41 kg Bia Jacinto PAPER BALER.CASTING ASSISTANT Work Phone: [facility] 02-16-2022 12:24-0400 Diastolic blood pressure 72 mm[Hg] Bia Jacinto PAPER BALER.CASTING ASSISTANT Work Phone: [facility] 02-16-2022 12:24-0400 Heart rate 91 /min Bia Jacinto PAPER BALER.CASTING ASSISTANT Work Phone: [facility] 02-16-2022 12:24-0400 Respiratory rate 20 /min Bia Jacinto PAPER BALER.CASTING ASSISTANT Work Phone: [facility] 02-16-2022 12:24-0400 SaO2% (BldA) [Mass fraction] 96 % Bia Jacinto PAPER BALER.CASTING ASSISTANT Work Phone: [facility] 02-16-2022 12:24-0400 Systolic blood pressure 110 mm[Hg] Bia Jacinto PAPER BALER.CASTING ASSISTANT Work Phone: [facility] 02-11-2022 09:25-0400 SaO2% (BldA) [Mass fraction] 96 % Dr. Papa Douglass Work Phone: [facility] Work Phone: 02-11-2022 09:20-0400 Body temperature 97.8 [degF] Dr. Papa Douglass Work Phone: [facility] Work Phone: 02-11-2022 09:20-0400 Diastolic blood pressure 60 mm[Hg] Dr. Papa Douglass Work Phone: [facility] Work Phone: 02-11-2022 09:20-0400 Heart rate 80 /min Dr. Papa Douglass Work Phone: [facility] Work Phone: 02-11-2022 09:20-0400 Respiratory rate 18 /min Dr. Papa Douglass Work Phone: [facility] Work Phone: 02-11-2022 09:20-0400 Systolic blood pressure 113 mm[Hg] Dr. Papa Douglass Work Phone: [facility] Work Phone: 02-10-2022 14:18-0400 Body height 154.[address] Papa Douglass Work Phone: [facility] Work Phone: 02-10-2022 14:18-0400 Body weight 106.[address] Papa Douglass Work Phone: [facility] Work Phone: 02-09-2022 20:44-0400 Body mass index (BMI) [Ratio] 44.4 kg/m2 Dr. Papa Douglass Work Phone: [facility] Work Phone: 02-09-2022 20:27-0400 Diastolic blood pressure 68 mm[Hg] [facility] Work Phone: 02-09-2022 20:27-0400 Systolic blood pressure 117 mm[Hg] [facility] Work Phone: 02-09-2022 19:39-0400 Body temperature 97.9 [degF] [facility] Work Phone: 02-09-2022 19:39-0400 Heart rate 99 /min [facility] Work Phone: 02-09-2022 19:39-0400 Respiratory rate 18 /min [facility] Work Phone: 02-09-2022 19:39-0400 SaO2% (BldA) [Mass fraction] 97 % [facility] Work Phone: 02-09-2022 17:44-0400 Body height 154.94 cm [facility] Work Phone: 02-09-2022 17:44-0400 Body mass index (BMI) [Ratio] 44.1 kg/m2 [facility] Work Phone: 02-09-2022 17:44-0400 Body weight 106 kg [facility] Work Phone: 02-08-2022 14:04-0400 Body weight 105.6 kg Papa Douglass MD Work Phone: [facility] 02-08-2022 14:04-0400 Diastolic blood pressure 72 mm[Hg] Papa Douglass MD Work Phone: [facility] 02-08-2022 14:04-0400 Heart rate 100 /min Papa Douglass MD Work Phone: [facility] 02-08-2022 14:04-0400 Respiratory rate 16 /min Papa Douglass MD Work Phone: [facility] 02-08-2022 14:04-0400 Systolic blood pressure 120 mm[Hg] Papa Douglass MD Work Phone: [facility] 10-16-2021 10:57-0400 Body temperature 97.81 [degF] Sasha Schroeder APRN.CNP Work Phone: [facility] 10-16-2021 10:57-0400 Body weight 107.41 kg Sasha Alexandre PAPER BALER.CASTING ASSISTANT Work Phone: [facility] 10-16-2021 10:57-0400 Diastolic blood pressure 70 mm[Hg] Sasha Alexandre PAPER BALER.CASTING ASSISTANT Work Phone: [facility] 10-16-2021 10:57-0400 Heart rate 102 /min Sasha Alexandre PAPER BALER.CASTING ASSISTANT Work Phone: [facility] 10-16-2021 10:57-0400 Respiratory rate 20 /min Sasha Alexandre PAPER BALER.CASTING ASSISTANT Work Phone: [facility] 10-16-2021 10:57-0400 SaO2% (BldA) [Mass fraction] 96 % Sasha Alexandre PAPER BALER.CASTING ASSISTANT Work Phone: [facility] 10-16-2021 10:57-0400 Systolic blood pressure 108 mm[Hg] Sashabhargav Vickk PAPER BALER.CASTING ASSISTANT Work Phone: [facility] Encounters Encounter Date Encounter Type Care Provider Facility Start: 01-11-2025 Evaluation and management of inpatient Dr. Amadou Arthur DO -Medical Surgical 3 Work Phone: Start: 12-31-2024 ambulatory VERO MAST Facility:[facility] Start: 12-31-2024 End: 12-31-2024 Telemedicine consultation with patient Scott Berrios MD, MPH Work Phone: Division of Medical Oncology Comment on above: Neuroendocrine neopl asm of stomach (Primary Dx); Neuroendocrine cancer; Hepatosplenomegaly; Elevated transaminase level Start: 12-30-2024 End: 12-30-2024 Patient encounter procedure Neal Ruiz PA [facility] Work Phone: Start: 12-30-2024 End: 12-30-2024 ambulatory VERO MAST SOFTWARE SALES EXECUTIVE Work Phone: [facility] Work Phone: Start: 12-24-2024 End: 12-24-2024 Clinical Support Encounter Scott Berrios MD, MPH Work Phone: Clinical Lab [facility] Comment on above: Neuroendocrine neopl asm of stomach Start: 12-24-2024 ambulatory SCOTT BERRIOS Facility: [facility] Start: 12-24-2024 End: 12-24-2024 Subsequent hospital visit by physician Scott Berrios MD, MPH Work Phone: [facility] Comment on above: Arrived Start: 12-02-2024 End: 12-06-2024 ambulatory VERO MAST PAPER BALER-CASTING ASSISTANT Facility:[facility] Start: 12-02-2024 End: 12-06-2024 Outreach Lab VERO MAST PAPER BALER-CASTING ASSISTANT [facility] Start: 11-17-2024 End: 12-18-2024 ambulatory Papa Douglass MD Work Phone: [facility] Start: 11-16-2024 Encounter for genera l adult medical examination without abnormal findings Elsa José [facility] Start: 11-12-2024 End: 11-12-2024 Patient encounter procedure LICENSED EMBALMER SUPERVISOR Elsa José -Sleep Lab Work Phone: Start: 11-12-2024 End: 11-12-2024 ambulatory Elsa José Facility:[facility] Start: 11-06-2024 End: 11-10-2024 ambulatory VERO MAST PAPER BALER-CASTING ASSISTANT Facility:[facility] Start: 11-06-2024 End: 11-10-2024 Outreach Lab VERO MAST PAPER BALER-CASTING ASSISTANT [facility] Start: 11-03-2024 End: 11-03-2024 Emergency department patient visit VERO MAST SOFTWARE SALES EXECUTIVE Work Phone: -Emergency Department Work Phone: Start: 10-30-2024 End: 10-30-2024 Patient encounter procedure LICENSED EMBALMER SUPERVISOR Elsa José -[facility] Work Phone: Start: 10-30-2024 End: 10-30-2024 ambulatory VERO MAST [facility] Start: 10-23-2024 End: 10-23-2024 ambulatory VERO MAST SOFTWARE SALES EXECUTIVE Work Phone: [facility] Work Phone: Start: 10-23-2024 End: 10-23-2024 Patient encounter procedure LICENSED EMBALMER SUPERVISOR Elsa José -Sleep Lab Work Phone: Start: 10-23-2024 End: 10-23-2024 ambulatory Elsa José Facility:[facility] Start: 10-14-2024 ambulatory Elsa José Facili ty:[facility] Start: 10-14-2024 Non-patient / Non-visit Dr. Alberto Gil own DO -[facility] Start: 10-06-2024 End: 10-06-2024 ambulatory VERO MAST SOFTWARE SALES EXECUTIVE Work Phone: [facility] Work Phone: Start: 10-06-2024 End: 10-06-2024 Patient encounter procedure LICENSED EMBALMER SUPERVISOR Elsa José -Pulmonary Services/Neurology Work Phone: Start: 10-05-2024 Non-patient / Non-visit Dr. Alberto Gil own DO -[facility] Start: 10-05-2024 End: 10-06-2024 ambulatory VERO MAST SOFTWARE SALES EXECUTIVE Work Phone: [facility] Work Phone: Start: 10-05-2024 End: 10-05-2024 Patient encounter procedure ARVIND José -Pulmonary Services/Neurology Work Phone: Start: 10-05-2024 End: 10-05-2024 ambulatory Elsa José Facility:[facility] Start: 09-30-2024 End: 09-30-2024 Emergency department patient visit VERO MAST SOFTWARE SALES EXECUTIVE Work Phone: -Emergency Department Work Phone: Start: 09-29-2024 End: 09-30-2024 ambulatory Rosa Cardenas RN NURSE APPRENTICE LINEM[facility] THIRD STEP Comment on above: Foot Pain (Midfoot) Start: 09-28-2024 End: 09-28-2024 ambulatory VERO MAST SOFTWARE SALES EXECUTIVE Work Phone: [facility] Work Phone: Start: 09-28-2024 End: 09-28-2024 Patient encounter procedure ARVIND José -Sleep Lab Work Phone: Start: 09-28-2024 End: 09-28-2024 ambulatory Elsa oJsé Facility:[facility] Start: 09-24-2024 End: 09-24-[address] Scott Berrios MD -Laboratory Work Phone: Start: 09-24-2024 End: 09-24-2024 ambulatory VERO MAST SOFTWARE SALES EXECUTIVE Work Phone: [facility] Work Phone: Start: 09-24-2024 End: 09-24-2024 ambulatory Scott Berrios Facility:[facility] Start: 09-21-2024 End: 09-23-2024 Telephone encounter Supriya Stone RN Division of Medical Oncology Comment on above: Lab Review Start: 09-15-2024 End: 09-15-2024 ambulatory VERO MAST PAPER BALER-CASTING ASSISTANT Facility:[facility] Start: 09-15-2024 End: 09-15-2024 Patient encounter procedure VERO MAST PAPER BALER-CASTING ASSISTANT [facility] Start: 09-07-2024 ambulatory VERO MAST Facility:[facility] Start: 09-04-2024 End: 09-04-2024 Patient encounter procedure ARVIND José -[facility] Work Phone: Start: 09-04-2024 End: 09-04-2024 ambulatory VERO MAST Facility:[facility] Start: 09-03-2024 End: 09-03-2024 Subsequent hospital visit by physician Blas Merrill MD Work Phone: [facility] Start: 09-03-2024 ambulatory VERO MAST Facility:[facility] Start: 09-02-2024 End: 09-06-2024 ambulatory VERO MAST PAPER BALER-CASTING ASSISTANT Facility:[facility] Start: 09-02-2024 End: 09-06-2024 Encounter for general adult medical examination without abnormal findings VERO MAST PAPER BALER-CASTING ASSISTANT Facility:[facility] Start: 09-02-2024 End: 09-06-2024 Outreach Lab VERO MAST PAPER BALER-CASTING ASSISTANT [facility] Start: 08-27-2024 ambulatory VERO MAST Facility:[facility] Start: 08-27-2024 End: 08-27-2024 Office outpatient visit 40 minutes Scott Berrios MD, MPH Work Phone: Division of Medical Oncology Comment on above: Microcytic anemia (P rimary Dx) Microcytic anemia (P rimary Dx); Iron deficiency anemia, unspecified iron deficiency anemia type Microcytic anemia (P rimary Dx); Iron deficiency anemia, unspecified iron deficiency anemia type; Neuroendocrine cancer Start: 08-27-2024 ambulatory VERO MAST Facility:[facility] Start: 08-14-2024 ambulatory VERO MAST Facility:[facility] Start: 08-14-2024 ambulatory VERO MAST Facility:[facility] Start: 08-12-2024 ambulatory SCOTT AGUSTINA Facility: [facility] Start: 07-31-2024 End: 07-31-2024 Telephone encounter [...] Subsequent hospital visit by physician Karolina Piedra APRN-ALEXEI, DNP Work Phone: [facility] Comment on above: Arrived Start: 07-29-2024 Non-patient / Non-visit Brayan Heath nd DO -[facility] Start: 07-29-2024 End: 07-29-2024 Admission to same day surgery center Brayan Serene DO -Endoscopy Work Phone: Start: 07-29-2024 End: 07-29-2024 ambulatory VERO MAST Facility:[facility] Start: 07-28-2024 End: 07-28-[address] Ralph Singh MD -[facility] Work Phone: Start: 07-28-2024 End: 07-28-2024 ambulatory VERO MAST [facility] Start: 07-24-2024 End: 07-24-[address] Ralph Singh MD -Ultrasound, [facility] Work Phone: Start: 07-24-2024 End: 07-24-2024 ambulatory VERO MAST Facility:[facility] Start: 07-09-2024 ambulatory BLAS RDO Facility :[facility] Start: 07-02-2024 ambulatory VERO MAST Facility:[facility] Start: 06-23-2024 End: 06-23-2024 Subsequent hospital visit by physician Blas Merrill MD Work Phone: [facility] Start: 06-23-2024 ambulatory VERO MAST Facility:[facility] Start: 06-16-2024 End: 06-16-[address] Ralph Singh MD -Nuclear Medicine, [facility] Work Phone: Start: 06-16-2024 End: 06-16-2024 ambulatory Ralph Singh Facility:[facility] Start: 06-08-2024 End: 06-08-2024 Patient encounter procedure Jaziel HERNANDEZ -[facility] Work Phone: Start: 06-08-2024 End: 06-08-2024 ambulatory VERO MAST [facility] Start: 06-02-2024 End: 06-02-[address] Ralph Singh MD -Laboratory, Specimen Work Phone: Start: 06-02-2024 End: 06-02-2024 ambulatory VERO MAST Facility:[facility] Start: 05-29-2024 End: 05-29-2024 ambulatory Trena Atanasov Facility:[facility] Start: 05-29-2024 End: 05-29-2024 ambulatory VERO MAST Facility:[facility] Start: 05-21-2024 End: 05-25-2024 ambulatory CORTNY BROOKOVER PAPER BALER-CASTING ASSISTANT Facility:[facility] Start: 05-21-2024 End: 05-21-2024 ambulatory VERO MAST PAPER BALER-CASTING ASSISTANT Facility:[facility] Start: 05-21-2024 End: 05-21-2024 [facility] PAP[facility] BALER-CASTING ASSISTANT [facility] Start: 05-12-2024 End: 05-12-2024 ambulatory VERO MAST Facility[facility] Start: 05-11-2024 End: 05-11-2024 ambulatory VERO MAST PAPER BALER-CASTING ASSISTANT Facility:[facility] Start: 05-11-2024 End: 05-11-2024 Patient encounter procedure VERO MAST PAPER BALER-CASTING ASSISTANT [facility] Start: 05-09-2024 End: 05-09-2024 ambulatory VERO MAST Facility:[facility] Start: 05-07-2024 End: 05-07-2024 Office outpatient new 60 minutes Blas Rod MD Work Phone: Division of Surgical Oncology Comment on above: Neuroendocrine tumor (Primary Dx) Start: 05-07-2024 End: 05-07-2024 Clinical Support Encounter Blas Rod MD Work Phone: Clinical Lab [facility] Comment on above: Neuroendocrine tumor Start: 05-07-2024 ambulatory BLAS ROD Facility :[facility] Start: 05-05-2024 End: 05-05-2024 ambulatory VERO MAST PAPER BALER-CASTING ASSISTANT Facility:[facility] Start: 05-05-2024 End: 05-05-2024 Patient encounter procedure VERO MAST PAPER BALER-CASTING ASSISTANT [facility] Start: 04-23-2024 End: 04-23-2024 ambulatory VERO MAST PAPER BALER-CASTING ASSISTANT Facility:[facility] Start: 04-23-2024 End: 04-23-2024 Patient encounter procedure AMADOU CLINTON MD [facility] Start: 04-16-2024 End: 04-16-2024 ambulatory Joseluis Sosaus [facility] Start: 04-16-2024 End: 04-16-2024 ambulatory Abram Rogerison Facility[facility] Start: 04-14-2024 End: 04-14-2024 ambulatory VERO MAST Facility:[facility] Start: 04-13-2024 End: 04-17-2024 ambulatory VERO MAST PAPER BALER-CASTING ASSISTANT Facility:[facility] Start: 04-13-2024 End: 04-17-2024 Outreach Lab VERO MAST PAPER BALER-CASTING ASSISTANT [facility] Start: 04-06-2024 ambulatory VERO MAST PAPER BALER-CASTING ASSISTANT Facility:[facility] Start: 04-03-2024 ambulatory Sergo Bustillos Fac ility:[facility] Start: 04-03-2024 End: 04-07-2024 Evaluation and management of inpatient [facility] Facility:[facility] Start: 03-30-2024 End: 03-30-2024 Emergency department patient visit ALDA ABBASI MD [facility] Start: 03-17-2024 End: 03-21-2024 ambulatory [facility] PAPER BALER-CASTING ASSISTANT Facility:[facility] Start: 03-17-2024 End: 03-21-2024 Outreach Lab [facility] PAPER BALER-CASTING ASSISTANT [facility] Start: 03-16-2024 End: 03-16-2024 Patient encounter procedure [facility] PAPER BALER-CASTING ASSISTANT [facility] Start: 03-16-2024 End: 03-20-2024 ambulatory KURT PINEDA PAPER BALER-CASTING ASSISTANT Facility:[facility] Start: 03-16-2024 End: 03-20-2024 Outreach Lab [facility] PAPER BALER-CASTING ASSISTANT [facility] Start: 03-12-2024 End: 03-12-2024 ambulatory Jaziel Vidal Facility:[facility] Start: 03-04-2024 ambulatory Hamida Saini [facility] Start: 03-04-2024 End: 03-07-2024 Evaluation and management of inpatient Hamida Saini Facility:[facility] Start: 03-02-2024 End: 03-06-2024 ambulatory VERO MAST PAPER BALER-CASTING ASSISTANT Facility:[facility] Start: 03-02-2024 End: 03-06-2024 Outreach Lab VERO MAST PAPER BALER-CASTING ASSISTANT [facility] Start: 02-25-2024 End: 02-25-2024 Emergency department patient visit DR URSULA DONATO MD [facility] Start: 02-24-2024 End: 02-28-2024 ambulatory VERO MAST PAPER BALER-CASTING ASSISTANT Facility:[facility] Start: 02-24-2024 End: 02-28-2024 Outreach Lab VERO MAST PAPER BALER-CASTING ASSISTANT [facility] Start: 02-24-2024 End: 02-28-2024 ambulatory VERO MAST PAPER BALER-CASTING ASSISTANT Facility:[facility] Start: 02-24-2024 End: 02-28-2024 Outreach Lab VERO MAST PAPER BALER-CASTING ASSISTANT [facility] Start: 01-27-2024 End: 01-27-2024 ambulatory VERO MAST Facility:[facility] Start: 01-22-2024 End: 01-22-2024 ambulatory VERO MAST Facility:[facility] Start: 01-14-2024 End: 01-18-2024 ambulatory VERO MAST PAPER BALER-CASTING ASSISTANT Facility:[facility] Start: 01-14-2024 End: 01-18-2024 Outreach Lab VERO MAST PAPER BALER-CASTING ASSISTANT [facility] Start: 12-18-2023 ambulatory Papa sal MD Work Phone: Internal Medicine [place] [id number] Start: 09-16-2023 End: 09-16-2023 ambulatory VERO MAST PAPER BALER-CASTING ASSISTANT Facility:[facility] Start: 09-02-2023 End: 09-02-2023 ambulatory VERO MAST PAPER BALER-CASTING ASSISTANT Facility:[facility] Start: 09-02-2023 End: 09-02-2023 Patient encounter procedure VERO MAST PAPER BALER-CASTING ASSISTANT [facility] Start: 08-19-2023 End: 08-19-2023 ambulatory VERO MAST PAPER BALER-CASTING ASSISTANT Facility:[facility] Start: 07-30-2023 End: 07-30-2023 ambulatory JAZIEL DRAKE LICENSED EMBALMER SUPERVISOR-C Facility:[facility] Start: 07-30-2023 End: 07-30-2023 Patient encounter procedure JAZIEL DRAKE LICENSED EMBALMER SUPERVISOR-C [facility] Start: 07-26-2023 End: 07-26-2023 ambulatory VERO MAST PAPER BALER-CASTING ASSISTANT Facility:[facility] Start: 07-26-2023 End: 07-26-2023 Patient encounter procedure VERO MAST PAPER BALER-CASTING ASSISTANT [facility] Start: 07-02-2023 End: 07-02-2023 Patient [...] 05-28-2023 ambulatory Papa sal MD Work Phone: [facility] Comment on above: Abdominal Pain Start: 05-17-2023 End: 05-17-2023 [facility] Work Phone: [facility] Start: 05-17-2023 End: 05-17-2023 ambulatory [facility] 1 Work Phone: Pre Anesthesia Comment on above: Pre-operative examin ation (Primary Dx); Anemia, unspecified type; Type 2 diabetes mellitus without complication, with long-term current use of insulin (HCC); Colitis; Essential hypertension; Mixed hyperlipidemia; Hypothyroidism, unspecified type; Chronic diastolic congestive heart failure (HCC); Bilateral leg edema; Morbid obesity with BMI of 50.0-59.9, adult (HCC) Start: 05-17-2023 End: 05-17-2023 Preprocedural examination done [facility] 1 Work Phone: [facility] Work Phone: Start: 05-07-2023 End: 05-07-2023 Patient encounter procedure Yessy White PA-C Work Phone: General Surgery Comment on above: History of colonic p olyps (Primary Dx); Colitis; Encounter for screening colonoscopy Start: 05-03-2023 End: 05-03-2023 Patient encounter procedure Papa Douglass MD Work Phone: [facility] Comment on above: Hospital discharge f ollow-up [...] / Non-visit Dr. Celestina Douglass Work Phone: [facility] Work Phone: Start: 04-18-2023 Non-patient / Non-visit Dr. Celestina Douglass Work Phone: [facility] Work Phone: Start: 04-18-2023 End: 04-20-2023 Evaluation and management of inpatient Dr. Papa Douglass Work Phone: [facility]-Progressive Care Unit Work Phone: Start: 04-17-[address] Papa Douglass Work Phone: [facility]-Laboratory Work Phone: Start: 04-17-2023 End: 04-17-[address] Papa Douglass Work Phone: [facility] Endocrinology Work Phone: Start: 03-05-2023 End: 03-05-2023 Patient encounter procedure Mari Jernigan DO Work Phone: Vascular Surgery Comment on above: Venous (peripheral) insufficiency (Primary Dx); Secondary lymphedema Start: 03-03-2023 Telephone encounter Mela huerta APRN.CASTING ASSISTANT Work Phone: OB/Gynecology Comment on above: Results Start: 03-01-2023 Telephone encounter Mela huerta APRN.CASTING ASSISTANT Work Phone: OB/Gynecology Comment on above: Results (Urine); Ord ers Start: 02-28-2023 Telephone encounter Mela huerta APRN.CASTING ASSISTANT Work Phone: OB/Gynecology Comment on above: UTI Start: 02-26-2023 Telephone encounter Papa pace MD Work Phone: [facility] Comment on above: Results Start: 02-18-2023 End: 02-18-[address] Papa Douglass Work Phone: [facility] Endocrinology Work Phone: Start: 01-20-2023 End: 01-20-2023 [facility]: Start: 01-19-2023 End: 01-19-2023 Patient encounter procedure Papa Douglass MD Work Phone: [facility] Comment on above: Pain in both hands ( Primary Dx); Type 2 diabetes mellitus without complication, with long-term current use of insulin (HCC); Hypothyroidism, unspecified type; History of anemia; Mixed hyperlipidemia; Essential hypertension; Uncontrolled type 2 diabetes mellitus with hyperglycemia ([facility]); GERD without esophagitis Start: 01-08-2023 Orders Only Louis rawls Work Phone: Podiatry Comment on above: Venous insufficiency (Primary Dx) Start: 01-07-2023 ambulatory Papa sal MD Work Phone: [facility] Comment on above: high blood sugars Start: 01-07-2023 End: 01-07-2023 Emergency department patient visit [facility]Emergency Department Start: 01-03-2023 Telephone encounter Louis Wang Work Phone: Podiatry Comment on above: Results Start: 12-31-2022 Telephone encounter Papa pace MD Work Phone: [facility] Comment on above: Forms (3 sets of for ms re: disability) Start: 11-29-2022 End: 11-29-2022 Patient encounter procedure Melissa Cabrales OD Work Phone: Ophthalmology Comment on above: Dry eye syndrome of bilateral lacrimal glands (Primary Dx); Regular astigmatism of both eyes; Presbyopia; Type 2 diabetes mellitus without retinopathy (HCC) Start: 11-20-2022 Refill Papa sal MD Work Phone: [facility] Comment on above: Refill Request Start: 11-16-2022 Orders Only Louis rawls Work Phone: Podiatry Comment on above: Bilateral foot pain (Primary Dx) Start: 11-12-2022 Telephone encounter Papa pace MD Work Phone: [facility] Comment on above: Consult Start: 11-08-2022 Telephone encounter Coco vázquez PAPER BALER.CASTING ASSISTANT Work Phone: [facility] Comment on above: Results (Labs ) Start: 11-06-2022 Telephone encounter Kiley Randall [facility] Work Phone: [facility] Comment on above: Appointment (Primary Care reschedule) Start: 10-29-2022 Telephone encounter Kiley Randall [facility] Work Phone: [facility] Comment on above: Appointment Start: 10-25-2022 Telephone encounter Jonah Naranjo MD Work Phone: [facility] Comment on above: Patient Update Start: 10-25-2022 End: 10-25-2022 [facility] Start: 10-23-2022 Refill Coco Waters APRN.CASTING ASSISTANT Work Phone: [facility] Comment on above: Refill Request Start: 10-10-2022 End: 10-10-2022 [facility] Start: 10-08-2022 End: 10-08-2022 ambulatory Kiley Randall [facility] Work Phone: [facility] Comment on above: Type 2 diabetes lyssa itus without complication, with long-term current use of insulin (HCC) (Primary Dx) Start: 10-08-2022 End: 10-08-2022 Telemedicine consultation with patient Kiley Randall RP Work Phone: [facility] Start: 10-04-2022 Telephone encounter Papa pace MD Work Phone: [facility] Comment on above: FMLA Paperwork Start: 10-02-2022 Telephone encounter Feliciano wood APRN.CASTING ASSISTANT Work Phone: [facility] Comment on above: Results Start: 10-01-2022 End: 10-01-2022 Patient encounter procedure Coco Waters APRN.CNP Work Phone: [facility] Comment on above: Bronchitis (Primary Dx); Acute cough; Sore throat; Iron deficiency anemia secondary to inadequate dietary iron intake; Type 2 diabetes mellitus without complication, with long-term current use of insulin (HCC) Start: 09-28-2022 Telephone encounter Coco vázquez APRN.CASTING ASSISTANT Work Phone: [facility] Comment on above: iron dose Start: 09-27-2022 End: 09-27-2022 Patient encounter procedure Coco Waters APRN.CASTING ASSISTANT Work Phone: [facility] Comment on above: URI, acute (Primary Dx); [...] 09-21-2022 End: 09-21-2022 Emergency department patient visit [facility]Emergency Department Start: 09-21-2022 End: 09-21-2022 Patient encounter procedure Sabine Borrego APRN.CASTING ASSISTANT Work Phone: [facility] Comment on above: SOB (shortness of br eath) (Primary Dx); Bilateral leg edema Start: 09-17-2022 Telephone encounter Coco vázquez APRN.CNP Work Phone: [facility] Comment on above: Results (Labs ) Start: 09-04-2022 Telephone encounter Dionne jurado MD Work Phone: Allergy Comment on above: Patient Question Start: 09-03-2022 Telephone encounter Mela huerta APRN.CNP Work Phone: OB/Gynecology Comment on above: Results; Clinical Up date Start: 08-31-2022 Telephone encounter Mela huerta APRN.CASTING ASSISTANT Work Phone: OB/Gynecology Comment on above: Patient Update Start: 08-31-2022 End: 08-31-2022 ambulatory [facility] Work Phone: Start: 08-31-2022 End: 08-31-2022 Patient encounter procedure [facility]Medical Out Start: 08-30-2022 End: 08-30-2022 Patient encounter procedure Dionne Turner MD Work Phone: Allergy Comment on above: Wri-drnv-stnucxr adv erse effect of medication, initial encounter (Primary Dx); Allergy to multiple antibiotics; Nonallergic rhinitis Start: 08-20-2022 Refill Papa sal MD Work Phone: [facility] Comment on above: Refill Request Start: 08-14-2022 Telephone encounter Mela huerta APRN.CASTING ASSISTANT Work Phone: OB/Gynecology Comment on above: Results Start: 08-12-2022 End: 08-12-2022 Emergency department patient visit [facility]Emergency [facility] Start: 08-07-2022 End: 08-07-2022 Patient encounter procedure Mela Murphy APRN.CASTING ASSISTANT Work Phone: OB/Gynecology Comment on above: Urinary tract infect ion with hematuria, site unspecified (Primary Dx) Start: 07-18-2022 Telephone encounter Papa pace MD Work Phone: [facility] Comment on above: Referral report Start: 07-18-2022 End: 07-18-2022 Patient encounter procedure Marissa Fenton APRN.CASTING ASSISTANT Work Phone: [facility] Comment on above: Bilateral leg edema (Primary Dx) Start: 07-04-2022 Telephone encounter Papa pace MD Work Phone: [address] [place] [address] Comment on above: Patient Question Start: 06-28-2022 End: 06-28-2022 Patient encounter procedure Coco Waters APRN.CASTING ASSISTANT Work Phone: [facility] Comment on above: Facial infection (Pr imary Dx); Erysipelas Start: 06-26-2022 End: 06-26-2022 Patient encounter procedure Génesis Zhang PA-C Work Phone: [facility] Comment on above: Viral URI (Primary D x); Facial infection Start: 06-21-2022 End: 06-21-2022 Patient encounter procedure Coco Waters APRN.CASTING ASSISTANT Work Phone: [facility] Comment on above: Type 2 diabetes lyssa itus without complication, with long-term current use of insulin (HCC) (Primary Dx); Hypothyroidism, unspecified type; Anxiety with depression Start: 06-17-2022 End: 06-17-2022 [facility] Start: 06-15-2022 End: 06-15-2022 Subsequent hospital visit by physician Xr [facility] Work Phone: Radiology Comment on above: Hand injuries, right , initial encounter [S69.91XA] Start: 06-08-2022 End: 06-08-2022 Emergency department patient visit Dr. Papa Douglass Work Phone: [facility]Emergency Department Start: 06-06-2022 Telephone encounter Papa pace MD Work Phone: [facility] Comment on above: Patient Question; Me dication Problem Start: 03-27-2022 End: 03-27-2022 Patient encounter procedure Melissa Cabrales OD Work Phone: Ophthalmology Comment on above: Regular astigmatism of both eyes (Primary Dx); Presbyopia; Dry eye syndrome of bilateral lacrimal glands; Punctate keratitis of right eye; Type 2 diabetes mellitus without retinopathy (HCC) Start: 03-19-2022 End: 03-19-2022 Patient encounter procedure Coco Waters APRN.CASTING ASSISTANT Work Phone: [facility] Comment on above: Type 2 diabetes lyssa itus without complication, with long-term current use of insulin (HCC) (Primary Dx); Essential hypertension; Hypothyroidism, unspecified type Start: 03-14-2022 End: 03-14-2022 Patient encounter procedure Gretchen C Cioce PAPER BALER.CASTING ASSISTANT Work Phone: Endocrinology Comment on above: Uncontrolled [...] Telephone encounter Evangelist Antonio MD Work Phone: [facility] Comment on above: Results (Judie+) Start: 02-16-2022 End: 02-16-2022 Patient encounter procedure Bia Ophelia PAPER BALER.CASTING ASSISTANT Work Phone: [facility] Comment on above: Pharyngitis, unspeci fied etiology (Primary Dx); Rash, skin; Vaginal itching Start: 02-12-2022 Refill Papa sal MD Work Phone: [facility] Comment on above: Refill Request Start: 02-11-2022 Non-patient / Non-visit Dr. Celestina Douglass Work Phone: [facility] Start: 02-10-2022 Non-patient / Non-visit Dr. Celestina Douglass Work Phone: [facility] Start: 02-09-2022 End: 02-11-2022 Evaluation and management of inpatient [facility] Start: 02-08-2022 End: 02-08-2022 Patient encounter procedure Papa Douglass MD Work Phone: [facility] Comment on above: Uncontrolled type 2 diabetes mellitus with hyperglycemia (HCC) (Primary Dx); Hypothyroidism, unspecified type; Anxiety with depression; Mixed hyperlipidemia; Essential hypertension; Anemia, unspecified type; KODI (obstructive sleep apnea); GERD without esophagitis Start: 11-13-2021 End: 11-13-2021 Patient encounter procedure Kiley Randall [facility] Work Phone: [facility] Comment on above: Type 2 diabetes lyssa itus without complication, with long-term current use of insulin (HCC) Start: 11-09-2021 End: 11-09-2021 Patient encounter procedure Papa Douglass MD Work Phone: [facility] [place] Comment on above: Uncontrolled type 2 diabetes mellitus with hyperglycemia (HCC) (Primary Dx) Start: 10-16-2021 End: 10-16-2021 Subsequent hospital visit by physician Xr [facility] D[facility] Work Phone: Radiology Comment on above: Left hand pain [M79. [id number]] Start: 10-16-2021 End: 10-16-2021 Patient encounter procedure Sasha Alexandre LORENZN.CASTING ASSISTANT Work Phone: [facility] Comment on above: Left hand pain (Prim miriam Dx) Type 2 diabetes lyssa itus without complication, with long-term current use of insulin (HCC) (Primary Dx) Start: 10-09-2021 Refill Louis rawls Work Phone: Podiatry Comment on above: Refill Request Start: 10-09-2021 Telephone encounter Coco vázquez APRN.CASTING ASSISTANT Work Phone: [facility] [place] Comment on above: Results; Orders Procedures Date Procedure Procedure Detail Performing Clinician Start: 01-10-2025 Estimated creatinine clearance VERO MAST SOFTWARE SALES EXECUTIVE Work Phone: Start: 01-10-2025 Urnls dip stick/tabl et reagent auto microscopy VERO MAST SOFTWARE SALES EXECUTIVE Work Phone: Start: 01-10-2025 CT of abdomen and pe lvis without contrast VERO MAST SOFTWARE SALES EXECUTIVE Work Phone: Start: 12-24-2024 CBC AND ELECTRONIC DIFF Thomas Montero PAPER BALER-CASTING ASSISTANT Work Phone: Start: 12-24-2024 Complete blood count with white cell differential, automated Thomas Montero PAPER BALER-CASTING ASSISTANT Work Phone: Start: 12-24-2024 End: 12-24-2024 Comprehensive metabolic panel Thomas Montero APRN-CASTING ASSISTANT Work Phone: Start: 11-03-2024 Urnls dip stick/tabl et reagent auto microscopy VERO GUTIÉRREZNP Work Phone: Start: 11-03-2024 Estimated creatinine clearance VERO GUTIÉRREZNP Work Phone: Start: 11-03-2024 Urine culture VERO YI Work Phone: Start: 09-30-2024 X-ray of foot, three or more views VERO GUTIÉRREZNP Work Phone: Start: 09-03-2024 End: 09-03-2024 Glucose measurement, blood Blas Merrill MD Work Phone: Start: 09-03-2024 INTERVENTIONAL UPPER ENDOSCOPY Blas Merrill MD Work Phone: Start: 09-03-2024 Glucose measurement, blood Blas Merrill MD Work Phone: Start: 07-30-2024 Follow-up visit Follow-up BLAS ROD Start: 07-30-[address] atten uation skull base mid-thigh Karolina Piedra APRN-ALEXEI, DNP Work Phone: Start: 07-24-2024 Ultrasound elastogra phy of liver VERO HASTINGS Work Phone: Start: 06-23-2024 UPPER EUS Karolina Piedra APRN-ALEXEI, DNP Work Phone: Start: 06-23-2024 Glucose measurement, blood Blas Merrill MD Work Phone: Start: 06-16-2024 Radionuclide gastric emptying study VERO GUTIÉRREZNP Work Phone: Start: 05-07-2024 CBC AND ELECTRONIC DIFF Karolina Piedra APRN-CASTING ASSISTANT, DNP Work Phone: Start: 05-07-2024 Complete blood count with white cell differential, automated Karolina Piedra APRN-CASTING ASSISTANT, DNP Work Phone: Start: 05-07-2024 Comprehensive metabo lic panel Karolina Shay Tadeo PAPER BALER-CASTING ASSISTANT, DNP Work Phone: Start: 07-02-2023 Clsr geoffrey [...] Work Phone: Start: 11-12-2022 Mammography Coco vázquez PAPER BALER.CASTING ASSISTANT Work Phone: Start: 10-25-2022 Plain chest X-ray Start: 10-10-2022 Urine culture Start: 10-01-2022 STREP A MOLECULAR (POC) Coco Waters PAPER BALER.CASTING ASSISTANT Work Phone: Start: 09-21-2022 Plain chest X-ray [...] stick/tabl et rgnt auto w/o microscopy Mela Murphy PAPER BALER.CASTING ASSISTANT Work Phone: Start: 06-17-2022 Plain x-ray of hand Start: 06-15-2022 Radex hand minimum 3 views Ravinder Cervantes PAPER BALER.CASTING ASSISTANT Work Phone: Start: 02-27-2022 Computerized ophthal shaheen imaging retina Melissa Cabrales OD Work Phone: Start: 02-16-2022 Gluc bld gluc mntr d ev cleared fda spec home use [facility] Provider Start: 10-16-2021 Radex hand minimum 3 views Sasha Schroeder PAPER BALER.CASTING ASSISTANT Work Phone: Start: 10-09-2021 Mammography Coco Perry [facility] PAPER BALER.CASTING ASSISTANT Work Phone: Start: 01-11-2021 Adult depression scr eening assessment Coco Waters PAPER BALER.CASTING ASSISTANT Work Phone: Start: 02-24-2018 Colonoscopy Coco Perry [facility] PAPER BALER.CASTING ASSISTANT Work Phone: Bacteria identified in Blood by Culture Dr. Papa Douglass Work Phone: Cholecystectomy CORTNY BROOK OVER PAPER [facility]ER-[facility] Urine culture Dr. Papa her Work Phone: Urine culture Plan of Treatment Date Care Activity Detail Author Start: 09-02-2034 Tetanus vaccination TETANUS [facility] Start: 06-06-2028 Tetanus vaccination TETANUS [facility] Start: 06-06-2028 Urine microalbumin profile [facility] Start: 06-23-2025 End: 12-31-2025 Complete blood count with white cell differential, automated CBC, EDIF, PLATELET Lab Routine Neuroendocrine neoplasm of stomach Neuroendocrine cancer Expected: 06/23/2025 (Approximate), Expires: 12/31/2025 [facility] Comment on above: Expected: 06/23/2025 (Approximate), Expi res: 12/31/2025 Start: 06-23-2025 End: 12-31-2025 Comprehensive metabolic 2000 panel - Serum or Plasma COMPREHENSIVE METABOLIC PANEL Lab Routine Neuroendocrine neoplasm of stomach Neuroendocrine cancer Expected: 06/23/2025 (Approximate), Expires: 12/31/2025 [facility] Comment on above: Expected: 06/23/2025 (Approximate), Expi res: 12/31/2025 Start: 06-23-2025 End: 12-31-2025 CT Abdomen and Pelvis WO and W contrast IV CT ABDOMEN/PELVIS WITH AND WITHOUT CONTRAST Imaging Routine Neuroendocrine neoplasm of stomach Neuroendocrine cancer Expected: 06/23/2025 (Approximate), Expires: 12/31/2025 [facility] Comment on above: Expected: 06/23/2025 (Approximate), Expi res: 12/31/2025 Start: 06-23-2025 End: 12-31-2025 CT Chest W contrast IV CT CHEST WITH CONTRAST Imaging Routine Neuroendocrine neoplasm of stomach Neuroendocrine cancer Expected: 06/23/2025 (Approximate), Expires: 12/31/2025 [facility] Comment on above: Expected: 06/23/2025 (Approximate), Expi res: 12/31/2025 Start: 06-23-2025 End: 12-31-2025 Lactate dehydrogenase [Enzymatic activity/volume] in Serum or Plasma LACTATE DEHYDROGENASE Lab Routine Neuroendocrine neoplasm of stomach Neuroendocrine cancer Expected: 06/23/2025 (Approximate), Expires: 12/31/2025 [facility] Comment on above: Expected: 06/23/2025 (Approximate), Expi res: 12/31/2025 Start: 04-19-2025 End: 04-19-2025 Patient encounter procedure 04/19/2025 4:00 PM EDT Appointment [facility] [address] [place] [phone] Natalya Guerin MD [address] [phone] [facility] Start: 01-11-2025 Verification routine [facility] Start: 01-11-2025 Admission procedure [facility] Start: 01-11-2025 Hospital admission, emergency, from emergency room, medical nature [facility] Start: 01-11-2025 [facility] Start: 01-10-2025 Bacteria identified in Urine by Culture Urine Culture [facility] Start: 12-31-2024 End: 12-31-2024 Patient encounter procedure 12/31/2024 1:30 PM EDT Office Visit Division of Medical Oncology [address] [place] [phone] Scott Berrios MD, MPH [address] [place] [phone] Division of Medical Oncology Start: 12-24-2024 End: 12-24-2024 Patient encounter procedure 12/24/2024 2:45 PM EDT Appointment Imaging [facility] [address] [facility] [address] [place] [phone] Scott Berrios MD, MPH [address] [place] [address] Imaging [facility] Start: 12-24-2024 End: 09-04-2025 CHROMOGRANIN A [facility] Comment on above: Expected: 12/24/2024, Expires: Start: 12-24-2024 End: 09-04-2025 Complete blood count with white cell differential, automated CBC, EDIF, PLATELET Lab Routine Neuroendocrine cancer Expected: 12/24/2024, Expires: 09/04/2025 [facility] Comment on above: Expected: 12/24/2024, Expires: Start: 12-24-2024 End: 09-04-2025 Comprehensive metabolic 2000 panel - Serum or Plasma COMPREHENSIVE METABOLIC PANEL Lab Routine Neuroendocrine cancer Expected: 12/24/2024, Expires: 09/04/2025 [facility] Comment on above: Expected: 12/24/2024, Expires: Start: 12-24-2024 End: 09-04-2025 Lactate dehydrogenase [Enzymatic activity/volume] in Serum or Plasma LACTATE DEHYDROGENASE Lab Routine Neuroendocrine cancer Expected: 12/24/2024, Expires: 09/04/2025 [facility] Comment on above: Expected: 12/24/2024, Expires: Start: 12-24-2024 End: 09-04-2025 METHYLMALONIC ACID METHYLMALONIC ACID Lab Routine Neuroendocrine cancer Expected: 12/24/2024, Expires: 09/04/2025 [facility] Comment on above: Expected: 12/24/2024, Expires: Start: 12-24-2024 End: 12-24-2024 Clinical Support Encounter 12/24/2024 1:30 PM EDT Clinical Support Encounter Clinical Lab [facility] [address] [place] [phone] Scott Berrios MD, MPH [address] [place] [phone] Clinical Lab [facility] Start: 11-03-2024 End: 11-03-2024 [facility] Start: 10-06-2024 Walking distance 6 minutes [facility] Start: 10-05-2024 Measurement of respiratory function [facility] Start: 09-30-2024 [facility] Start: 09-03-2024 End: 09-03-2024 Patient encounter procedure [facility] Start: 08-27-2024 End: 08-27-2024 Patient encounter procedure 08/27/2024 3:00 PM EST Office Visit Division of Medical Oncology [address] [place] [phone] Scott Berrios MD, MPH [address] [place] [phone] Division of Medical Oncology Start: 08-14-2024 End: 08-14-2024 Patient encounter procedure 08/14/2024 3:15 PM EST Appointment [facility] [place] [address] [place] [address] Scott Berrios MD, MPH [address] [place] [address] [facility] [place] Start: 08-14-2024 End: 07-30-2025 ANTI PARIETAL ANTIBODY ANTI PARIETAL ANTIBODY Lab Routine Neuroendocrine neoplasm of stomach Expected: 08/14/2024, Expires: 07/30/2025 [facility] Comment on above: Expected: 08/14/2024, Expires: Start: 08-14-2024 End: 07-30-2025 CALCITONIN CALCITONIN Lab Routine Neuroendocrine neoplasm of stomach Expected: 08/14/2024, Expires: 07/30/2025 [facility] Comment on above: Expected: 08/14/2024, Expires: Start: 08-14-2024 End: 07-31-2025 CHROMOGRANIN A [facility] Comment on above: Expected: 08/14/2024, Expires: Expected: 08/14/2024 , Expires: 07/31/2025 Start: 08-14-2024 End: 07-30-2025 Complete blood count with white cell differential, automated CBC, EDIF, PLATELET Lab Routine Neuroendocrine neoplasm of stomach Expected: 08/14/2024, Expires: 07/30/2025 [facility] Comment on above: Expected: 08/14/2024, Expires: Start: 08-14-2024 End: 07-30-2025 Comprehensive metabolic 2000 panel - Serum or Plasma COMPREHENSIVE METABOLIC PANEL Lab Routine Neuroendocrine neoplasm of stomach Expected: 08/14/2024, Expires: 07/30/2025 [facility] Comment on above: Expected: 08/14/2024, Expires: Start: 08-14-2024 End: 07-30-2025 Cyanocobalamin vitamin b-12 VITAMIN B12 Lab Routine Neuroendocrine neoplasm of stomach Expected: 08/14/2024, Expires: 07/30/2025 [facility] Comment on above: Expected: 08/14/2024, Expires: Start: 08-14-2024 End: 07-30-2025 GASTRIN - NON-STIMULATED GASTRIN - NON-STIMULATED Lab Routine Neuroendocrine neoplasm of stomach Expected: 08/14/2024, Expires: 07/30/2025 [facility] Comment on above: Expected: 08/14/2024, Expires: Start: 08-14-2024 End: 07-30-2025 INTRINSIC FACTOR ANTIBODY INTRINSIC FACTOR ANTIBODY Lab Routine Neuroendocrine neoplasm of stomach Expected: 08/14/2024, Expires: 07/30/2025 [facility] Comment on above: Expected: 08/14/2024, Expires: Start: 08-14-2024 End: 07-30-2025 Lactate dehydrogenase [Enzymatic activity/volume] in Serum or Plasma LACTATE DEHYDROGENASE Lab Routine Neuroendocrine neoplasm of stomach Expected: 08/14/2024, Expires: 07/30/2025 [facility] Comment on above: Expected: 08/14/2024, Expires: Start: 08-14-2024 End: 07-30-2025 METHYLMALONIC ACID METHYLMALONIC ACID Lab Routine Neuroendocrine neoplasm of stomach Expected: 08/14/2024, Expires: 07/30/2025 [facility] Comment on above: Expected: 08/14/2024, Expires: Start: 08-14-2024 End: 07-30-2025 PANCREATIC POLYPEPTIDE PANCREATIC POLYPEPTIDE Lab Routine Neuroendocrine neoplasm of stomach Expected: 08/14/2024, Expires: 07/30/2025 [facility] Comment on above: Expected: 08/14/2024, Expires: Start: 08-14-2024 End: 07-30-2025 PTH INTACT PTH INTACT Lab Routine Neuroendocrine neoplasm of stomach Expected: 08/14/2024, Expires: 07/30/2025 [facility] Comment on above: Expected: 08/14/2024, Expires: Start: 08-13-2024 End: 07-30-2025 ANTI PARIETAL ANTIBODY ANTI PARIETAL ANTIBODY Lab Routine Neuroendocrine neoplasm of stomach Expected: 08/13/2024, Expires: 07/30/2025 [facility] Comment on above: Expected: 08/13/2024, Expires: Start: 08-13-2024 End: 07-30-2025 CALCITONIN CALCITONIN Lab Routine Neuroendocrine neoplasm of stomach Expected: 08/13/2024, Expires: 07/30/2025 [facility] Comment on above: Expected: 08/13/2024, Expires: Start: 08-13-2024 End: 07-30-2025 CHROMOGRANIN A [facility] Comment on above: Expected: 08/13/2024, Expires: Expected: 08/13/2024 (Approximate), Expires: 07/30/2025 Start: 08-13-2024 End: 07-30-2025 Complete blood count with white cell differential, automated CBC, EDIF, PLATELET Lab Routine Neuroendocrine neoplasm of stomach Expected: 08/13/2024, Expires: 07/30/2025 [facility] Comment on above: Expected: 08/13/2024, Expires: Start: 08-13-2024 End: 07-30-2025 Comprehensive metabolic 2000 panel - Serum or Plasma COMPREHENSIVE METABOLIC PANEL Lab Routine Neuroendocrine neoplasm of stomach Expected: 08/13/2024, Expires: 07/30/2025 [facility] Comment on above: Expected: 08/13/2024, Expires: Start: 08-13-2024 End: 07-30-2025 Cyanocobalamin vitamin b-12 VITAMIN B12 Lab Routine Neuroendocrine neoplasm of stomach Expected: 08/13/2024, Expires: 07/30/2025 [facility] Comment on above: Expected: 08/13/2024, Expires: Start: 08-13-2024 End: 07-30-2025 GASTRIN - NON-STIMULATED GASTRIN - NON-STIMULATED Lab Routine Neuroendocrine neoplasm of stomach Expected: 08/13/2024, Expires: 07/30/2025 [facility] Comment on above: Expected: 08/13/2024, Expires: Start: 08-13-2024 End: 07-30-2025 INTRINSIC FACTOR ANTIBODY INTRINSIC FACTOR ANTIBODY Lab Routine Neuroendocrine neoplasm of stomach Expected: 08/13/2024, Expires: 07/30/2025 [facility] Comment on above: Expected: 08/13/2024, Expires: Start: 08-13-2024 End: 07-30-2025 Lactate dehydrogenase [Enzymatic activity/volume] in Serum or Plasma LACTATE DEHYDROGENASE Lab Routine Neuroendocrine neoplasm of stomach Expected: 08/13/2024, Expires: 07/30/2025 [facility] Comment on above: Expected: 08/13/2024, Expires: Start: 08-13-2024 End: 07-30-2025 METHYLMALONIC ACID METHYLMALONIC ACID Lab Routine Neuroendocrine neoplasm of stomach Expected: 08/13/2024, Expires: 07/30/2025 [facility] Comment on above: Expected: 08/13/2024, Expires: Start: 08-13-2024 End: 07-30-2025 PANCREATIC POLYPEPTIDE PANCREATIC POLYPEPTIDE Lab Routine Neuroendocrine neoplasm of stomach Expected: 08/13/2024, Expires: 07/30/2025 [facility] Comment on above: Expected: 08/13/2024, Expires: Start: 08-13-2024 End: 07-30-2025 PTH INTACT PTH INTACT Lab Routine Neuroendocrine neoplasm of stomach Expected: 08/13/2024, Expires: 07/30/2025 [facility] Comment on above: Expected: 08/13/2024, Expires: Start: 08-12-2024 Subsequent hospital visit by physician 08/12/2024 9:00 PM EST [facility] [address] [place] [phone] Scott Berrios MD, MPH [address] [facility] [place] [phone] Imaging [facility] Start: 07-30-2024 End: 07-30-2025 CT Abdomen and Pelvis WO and W contrast IV CT ABDOMEN/PELVIS WITH AND WITHOUT CONTRAST Imaging Routine Neuroendocrine neoplasm of stomach Neuroendocrine cancer Expected: 07/30/2024, Expires: 07/30/2025 [facility] Comment on above: Expected: 07/30/2024, Expires: Start: 07-29-2024 Colonoscopy w/biopsy single/multiple COLONOSCOPY AND BIOPSY [facility] Start: 07-29-2024 Patient discharge [facility] Start: 07-09-2024 End: 07-09-2024 Telemedicine consultation with patient 07/09/2024 12:45 PM EST Telemedicine Division of Surgical Oncology [address] [facility] [place] [phone] Blas Rod MD [address] [facility] [address] Division of Surgical Oncology Start: 07-02-2024 End: 07-02-2024 Patient encounter procedure 07/02/2024 9:30 AM EST Appointment [facility] [address] [place] [phone] Karolina Piedra APRN-CNP, DNP [address] [place] [address] [facility] Start: 07-02-2024 Subsequent hospital visit by physician 07/02/2024 9:30 AM EST Hospital Encounter [facility] [address] [place] [phone] Karolina Piedra APRN-CNP, DNP [address] [place] [address] [facility] Start: 06-23-2024 End: 06-23-2025 INTERVENTIONAL UPPER ENDOSCOPY INTERVENTIONAL UPPER ENDOSCOPY GI/Bronch Routine Neuroendocrine tumor Expected: 06/23/2024, Expires: 06/23/2025 [facility] Comment on above: Expected: 06/23/2024, Expires: Start: 06-02-2024 End: 06-02-2024 Patient encounter procedure 06/02/2024 9:40 AM EST Office [facility] [address] [facility] [place] [place] [address] Darcie Logan PA-C [address] [place] [address] Colonoscopy screen consult [facility] Comment on above: Colonoscopy screen consult Start: 05-28-2024 BP Controlled (<130/80) BP Controlled (<130/80) [facility] Start: 05-17-2024 BP Controlled (<130/80) BP Controlled (<130/80) [facility] Start: 05-07-2024 BP Controlled (<130/80) BP Controlled (<130/80) [facility] Start: 05-07-2024 End: 05-07-2025 PT Skull base to mid-thigh NUC PET NEUROENDOCRINE Imaging Routine Neuroendocrine tumor Expected: 05/07/2024, Expires: 05/07/2025 [facility] Comment on above: Expected: 05/07/2024, Expires: Start: 05-07-2024 End: 05-07-2025 UPPER EUS UPPER EUS GI/Bronch Routine Neuroendocrine tumor Expected: 05/07/2024, Expires: 05/07/2025 [facility] Comment on above: Expected: 05/07/2024, Expires: Start: 05-05-2024 End: 05-05-2025 CHROMOGRANIN A CHROMOGRANIN A Lab Routine Neuroendocrine tumor Expected: 05/05/2024, Expires: 05/05/2025 [facility] Comment on above: Expected: 05/05/2024, Expires: Start: 05-05-2024 End: 05-05-2025 GASTRIN - NON-STIMULATED GASTRIN - NON-STIMULATED Lab Routine Neuroendocrine tumor Expected: 05/05/2024, Expires: 05/05/2025 [facility] Comment on above: Expected: 05/05/2024, Expires: Start: 05-03-2024 3 comp foot exam completed Diabetic Foot Exam [facility] Start: 05-03-2024 Annual PCP Team Chronic Disease Visit Annual PCP Team Chronic Disease Visit [facility] Start: 05-03-2024 BP Controlled (<130/80) BP Controlled (<130/80) [facility] Start: 05-03-2024 Diabetic foot examination Diabetic Foot Exam [facility] Start: 04-17-2024 Hepatitis B surface antibody level LDL Cholesterol [facility] Start: 04-16-2024 BP Controlled (<130/80) BP Controlled (<130/80) [facility] Start: 03-22-2024 COVID-19 VACCINE ( season) COVID-19 VACCINE ( season) [facility] Start: 03-22-2024 COVID-19 VACCINE ( season) COVID-19 VACCINE ( season) [facility] Start: 03-22-2024 Covid-19 Vaccine ( season) Covid-19 Vaccine ( season) [facility] Start: 03-22-2024 Influenza vaccination Influenza Vaccine (#1) [facility] Start: 03-05-2024 BP CONTROLLED (<130/80) BP CONTROLLED (<130/80) [facility] Start: 03-02-2024 End: 03-02-2024 Patient encounter procedure 03/02/2024 1:45 PM EDT Office Visit [facility] [address] [place] [id number] Melissa Cabrales, OD [address] [place] [id number] diabetic eye exam with dry eye follow-up . Ophthalmology Comment on above: diabetic eye exam with dry eye follow-up . Start: 03-01-2024 Glaucoma screening Dilated Retinal Exam [facility] Start: 03-01-2024 Hepatitis C antibody, confirmatory test DILATED RETINAL EXAM [facility] Start: 02-16-2024 Hepatitis B surface antibody level LDL CHOLESTEROL [facility] Start: 01-20-2024 ANNUAL PCP TEAM CHRONIC DISEASE VISIT ANNUAL PCP TEAM CHRONIC DISEASE VISIT [facility] Start: 01-20-2024 BP CONTROLLED (<130/80) BP CONTROLLED (<130/80) [facility] Start: 11-13-2023 Mammography [facility] Start: 11-13-2023 Screening for malignant neoplasm of breast [facility] Start: 11-07-2023 ANNUAL PCP TEAM CHRONIC DISEASE VISIT ANNUAL PCP TEAM CHRONIC DISEASE VISIT [facility] Start: 11-07-2023 BP CONTROLLED (<130/80) BP CONTROLLED (<130/80) [facility] Start: 10-02-2023 ANNUAL PCP TEAM CHRONIC DISEASE VISIT ANNUAL PCP TEAM CHRONIC DISEASE VISIT [facility] Start: 10-02-2023 BP CONTROLLED (<130/80) BP CONTROLLED (<130/80) [facility] Start: 09-28-2023 ANNUAL PCP TEAM CHRONIC DISEASE VISIT ANNUAL PCP TEAM CHRONIC DISEASE VISIT [facility] Start: 09-28-2023 BP CONTROLLED (<130/80) BP CONTROLLED (<130/80) [facility] Start: 09-22-2023 BP CONTROLLED (<130/80) BP CONTROLLED (<130/80) [facility] Start: 08-31-2023 Hepatitis B screening URINE ALBUMIN:CREATININE RATIO [facility] Start: 08-31-2023 Hepatitis B surface antibody level LDL CHOLESTEROL [facility] Start: 08-30-2023 BP CONTROLLED (<130/80) BP CONTROLLED (<130/80) [facility] Start: 08-07-2023 BP CONTROLLED (<130/80) BP CONTROLLED (<130/80) [facility] Start: 07-22-2023 Behavioral Health Screening Behavioral Health Screening [facility] Start: 07-18-2023 ANNUAL PCP TEAM CHRONIC DISEASE VISIT ANNUAL PCP TEAM CHRONIC DISEASE VISIT [facility] Start: 06-28-2023 ANNUAL PCP TEAM CHRONIC DISEASE VISIT ANNUAL PCP TEAM CHRONIC DISEASE VISIT [facility] Start: 06-28-2023 BP CONTROLLED (<130/80) BP CONTROLLED (<130/80) [facility] Start: 06-26-2023 BP CONTROLLED (<130/80) BP CONTROLLED (<130/80) [facility] Start: 06-21-2023 ANNUAL PCP TEAM CHRONIC DISEASE VISIT ANNUAL PCP TEAM CHRONIC DISEASE VISIT [facility] Start: 06-21-2023 BP CONTROLLED (<130/80) BP CONTROLLED (<130/80) [facility] Start: 06-03-2023 End: 08-03-2023 Basic metabolic 2000 panel - Serum or Plasma BASIC METABOLIC PNL Lab Routine Type 2 diabetes mellitus without complication, with long-term current use of insulin (HCC) Stage 3 chronic kidney disease, unspecified whether stage 3a or 3b CKD (HCC) Expected: 06/03/2023 (Approximate), Expires: 08/03/2023 [facility] Work Phone: Comment on above: Expected: 06/03/2023 (Approximate), Expi res: 08/03/2023 Start: 05-21-2023 Hemoglobin A1c measurement HbA1C [facility] Start: 05-21-2023 Hemoglobin A1c/Hemoglobin.total in Blood HBA1C [facility] Start: 04-20-2023 Patient discharge [facility] Start: 04-19-2023 [facility] Start: 04-19-2023 [facility] Start: 04-18-2023 Following clinical pathway protocol [facility] Start: 04-18-2023 Application of elastic bandage [facility] Start: 04-18-2023 Assessment of risk of venous thromboembolism [facility] Start: 04-18-2023 Care regimes management [facility] Start: 04-18-2023 Catheterization of vein [facility] Start: 04-18-2023 Elevation of affected extremity [facility] Start: 04-18-2023 Incentive spirometry [facility] Start: 04-18-2023 Inhalation therapy procedure [facility] Start: 04-18-2023 Insertion of catheter into peripheral vein [facility] Start: 04-18-2023 Measuring intake and output [facility] Start: 04-18-2023 Notification of physician [facility] Start: 04-18-2023 Oxygen therapy [facility] Start: 04-18-2023 Patient education [facility] Start: 04-18-2023 Patient referral to dietitian [facility] Start: 04-18-2023 Providing care according to standard [facility] Start: 04-18-2023 Provision of activity privileges [facility] Start: 04-18-2023 Referral to service [facility] Start: 04-18-2023 [facility] Start: 04-18-2023 Admission procedure [facility] Start: 03-22-2023 Covid-19 Vaccine () Covid-19 Vaccine () [facility] Start: 03-22-2023 Influenza vaccination [facility] Start: 03-19-2023 ANNUAL PCP TEAM CHRONIC DISEASE VISIT ANNUAL PCP TEAM CHRONIC DISEASE VISIT [facility] Start: 03-19-2023 BP CONTROLLED (<130/80) BP CONTROLLED (<130/80) [facility] [place] in Start: 03-14-2023 BP CONTROLLED (<130/80) BP CONTROLLED (<130/80) [facility] Start: 03-12-2023 Hepatitis B surface antibody level LDL CHOLESTEROL [facility] Start: 02-28-2023 End: 04-30-2023 Bacteria identified in Urine by Culture [facility] Work Phone: Comment on above: Expected: 02/28/2023, Expires: 3 Start: 02-28-2023 End: 04-30-2023 Urinalysis complete panel - Urine [facility] Work Phone: Comment on above: Expected: 02/28/2023, Expires: 3 Start: 02-27-2023 Hepatitis C antibody, confirmatory test DILATED RETINAL EXAM [facility] Start: 02-24-2023 Colonoscopy COLONOSCOPY [facility] Start: 02-24-2023 COLORECTAL CANCER SCREENING COLORECTAL CANCER SCREENING [facility] Start: 02-24-2023 Screening for malignant neoplasm of colon [facility] Start: 02-19-2023 End: 04-21-2023 Comprehensive metabolic 2000 panel - Serum or Plasma COMP METABOLIC PANEL Lab Routine Mixed hyperlipidemia Uncontrolled type 2 diabetes mellitus with hyperglycemia (HCC) Expected: 02/19/2023 (Approximate), Expires: 04/21/2023 [facility] Work Phone: Comment on above: Expected: 02/19/2023 (Approximate), Expi res: 04/21/2023 Start: 02-19-2023 End: 04-21-2023 Hemoglobin A1c in Blood HGB A1C Lab Routine Uncontrolled type 2 diabetes mellitus with hyperglycemia (HCC) Expected: 02/19/2023 (Approximate), Expires: 04/21/2023 [facility] Work Phone: Comment on above: Expected: 02/19/2023 (Approximate), Expi res: 04/21/2023 Start: 02-19-2023 End: 04-21-2023 Lipid 1996 panel - Serum or Plasma LIPID PANEL BASIC Lab Routine Mixed hyperlipidemia Uncontrolled type 2 diabetes mellitus with hyperglycemia (HCC) Expected: 02/19/2023 (Approximate), Expires: 04/21/2023 [facility] Work Phone: Comment on above: Expected: 02/19/2023 (Approximate), Expi res: 04/21/2023 Start: 02-16-2023 BP CONTROLLED (<130/80) BP CONTROLLED (<130/80) [facility] Start: 02-08-2023 ANNUAL PCP TEAM CHRONIC DISEASE VISIT ANNUAL PCP TEAM CHRONIC DISEASE VISIT [facility] Start: 02-08-2023 BP CONTROLLED (<130/80) BP CONTROLLED (<130/80) [facility] Start: 01-20-2023 [facility] Start: 01-20-2023 Bacteria identified in Urine by Culture Urine Culture [facility] Start: 12-25-2022 Hemoglobin A1c/Hemoglobin.total in Blood HBA1C [facility] Start: 11-22-2022 HPV TESTING HPV TESTING [facility] Start: 11-22-2022 PAP TESTING PAP TESTING [facility] Start: 11-22-2022 Screening for malignant neoplasm of cervix [facility] Start: 11-09-2022 ANNUAL PCP TEAM CHRONIC DISEASE VISIT ANNUAL PCP TEAM CHRONIC DISEASE VISIT [facility] Start: 10-28-2022 End: 12-28-2022 25-hydroxyvitamin D3 [Mass/volume] in Serum or Plasma VITAMIN D 25 HYDROXY Lab Routine Vitamin D deficiency Expected: 10/28/2022, Expires: 12/28/2022 [facility] Work Phone: Comment on above: Expected: 10/28/2022, Expires: 3 Start: 10-28-2022 End: 12-28-2022 CBC W Auto Differential panel - Blood CBC + DIFF Lab Routine Iron deficiency anemia secondary to inadequate dietary iron intake Expected: 10/28/2022, Expires: 12/28/2022 [facility] Work Phone: Comment on above: Expected: 10/28/2022, Expires: 3 Start: 10-28-2022 End: 12-28-2022 Ferritin [Mass/volume] in Serum or Plasma FERRITIN BLD Lab Routine Iron deficiency anemia secondary to inadequate dietary iron intake Expected: 10/28/2022, Expires: 12/28/2022 [facility] Work Phone: Comment on above: Expected: 10/28/2022, Expires: 3 Start: 10-28-2022 End: 12-28-2022 Iron and Iron binding capacity panel - Serum or Plasma IRON + TIBC Lab Routine Iron deficiency anemia secondary to inadequate dietary iron intake Expected: 10/28/2022, Expires: 12/28/2022 [facility] Work Phone: Comment on above: Expected: 10/28/2022, Expires: 3 Start: 10-28-2022 End: 12-28-2022 Thyrotropin [Units/volume] in Serum or Plasma TSH BLD Lab Routine Hypothyroidism, unspecified type Expected: 10/28/2022, Expires: 12/28/2022 [facility] Work Phone: Comment on above: Expected: 10/28/2022, Expires: 3 Start: 10-28-2022 End: 12-28-2022 Thyroxine (T4) free [Mass/volume] in Serum or Plasma T4 FREE/FREE THYROX Lab Routine Hypothyroidism, unspecified type Expected: 10/28/2022, Expires: 12/28/2022 [facility] Work Phone: Comment on above: Expected: 10/28/2022, Expires: 3 Start: 10-25-2022 [facility] Start: 10-16-2022 BP CONTROLLED (<130/80) BP CONTROLLED (<130/80) [facility] [place] inic Start: 10-10-2022 [facility] Start: 10-09-2022 Mammography MAMMOGRAM [facility] Start: 10-06-2022 ANNUAL PCP TEAM CHRONIC DISEASE VISIT ANNUAL PCP TEAM CHRONIC DISEASE VISIT [facility] Start: 10-06-2022 Hepatitis B surface antibody level LDL CHOLESTEROL [facility] Start: 09-21-2022 [facility] Start: 09-19-2022 End: 11-19-2022 Comprehensive metabolic 2000 panel - Serum or Plasma COMP METABOLIC PANEL Lab Routine Type 2 diabetes mellitus without complication, with long-term current use of insulin (HCC) Expected: 09/19/2022, Expires: 11/19/2022 [facility] Work Phone: Comment on above: Expected: 09/19/2022, Expires: 3 Start: 09-19-2022 End: 11-19-2022 Hemoglobin A1c in Blood HGB A1C Lab Routine Type 2 diabetes mellitus without complication, with long-term current use of insulin (HCC) Expected: 09/19/2022, Expires: 11/19/2022 [facility] Work Phone: Comment on above: Expected: 09/19/2022, Expires: 3 Start: 09-15-2022 Hemoglobin A1c/Hemoglobin.total in Blood HBA1C [facility] Start: 08-31-2022 End: 10-31-2022 Bacteria identified in Urine by Culture [facility] Work Phone: Comment on above: Expected: 08/31/2022, Expires: 3 Start: 08-31-2022 Iv infusion therapy/prophylaxis /dx 1st to 1 hr THER/PROPH/DIAG IV INF INIT [facility] Start: 08-22-2022 End: 10-22-2022 ALBUMIN/CREAT RATIO RND UR ALBUMIN/CREAT RATIO RND UR Lab Routine Uncontrolled type 2 diabetes mellitus with hyperglycemia (HCC) Expected: 08/22/2022, Expires: 10/22/2022 [facility] Work Phone: Comment on above: Expected: 08/22/2022, Expires: 3 Start: 08-22-2022 End: 10-22-2022 Comprehensive metabolic 2000 panel - Serum or Plasma COMP METABOLIC PANEL Lab Routine Uncontrolled type 2 diabetes mellitus with hyperglycemia (HCC) Expected: 08/22/2022, Expires: 10/22/2022 [facility] Work Phone: Comment on above: Expected: 08/22/2022, Expires: 3 Start: 08-22-2022 End: 10-22-2022 Hemoglobin A1c in Blood HGB A1C Lab Routine Uncontrolled type 2 diabetes mellitus with hyperglycemia (HCC) Expected: 08/22/2022, Expires: 10/22/2022 [facility] Work Phone: Comment on above: Expected: 08/22/2022, Expires: 3 Start: 08-22-2022 End: 10-22-2022 LIPID PANEL, NONFASTING LIPID PANEL, NONFASTING Lab Routine Uncontrolled type 2 diabetes mellitus with hyperglycemia (HCC) Expected: 08/22/2022, Expires: 10/22/2022 [facility] Work Phone: Comment on above: Expected: 08/22/2022, Expires: 3 Start: 07-22-2022 DEPRESSION ASSESSMENT DEPRESSION ASSESSMENT [facility] Start: 07-22-2022 End: 09-21-2022 Thyrotropin [Units/volume] in Serum or Plasma TSH BLD Lab Routine Hypothyroidism, unspecified type Expected: 07/22/2022, Expires: 09/21/2022 [facility] Work Phone: Comment on above: Expected: 07/22/2022, Expires: 3 Start: 07-22-2022 End: 09-21-2022 Thyroxine (T4) free [Mass/volume] in Serum or Plasma T4 FREE/FREE THYROX Lab Routine Hypothyroidism, unspecified type Expected: 07/22/2022, Expires: 09/21/2022 [facility] Work Phone: Comment on above: Expected: 07/22/2022, Expires: 3 Start: 06-26-2022 End: 07-10-2022 Influenza virus A and B RNA and SARS-CoV-2 (COVID-19) N gene panel - Respiratory specimen by [place] with probe detection [facility] Work Phone: Comment on above: Expected: 06/26/2022, Expires: 2 Start: 06-12-2022 Hemoglobin A1c/Hemoglobin.total in Blood HBA1C [facility] Start: 04-25-2022 End: 06-25-2022 Hemoglobin A1c in Blood HGB A1C Lab Routine Uncontrolled type 2 diabetes mellitus with hyperglycemia (HCC) Hypothyroidism, unspecified type Expected: 04/25/2022, Expires: 06/25/2022 [facility] Work Phone: Comment on above: Expected: 04/25/2022, Expires: 2 Start: 04-25-2022 End: 06-25-2022 Thyrotropin [Units/volume] in Serum or Plasma TSH BLD Lab Routine Uncontrolled type 2 diabetes mellitus with hyperglycemia (HCC) Hypothyroidism, unspecified type Expected: 04/25/2022, Expires: 06/25/2022 [facility] Work Phone: Comment on above: Expected: 04/25/2022, Expires: 2 Start: 04-25-2022 End: 06-25-2022 Thyroxine (T4) free [Mass/volume] in Serum or Plasma T4 FREE/FREE THYROX Lab Routine Uncontrolled type 2 diabetes mellitus with hyperglycemia (HCC) Hypothyroidism, unspecified type Expected: 04/25/2022, Expires: 06/25/2022 [facility] Work Phone: Comment on above: Expected: 04/25/2022, Expires: 2 Start: 04-18-2022 COVID-19 VACCINE (5 - Booster for Pfizer series) COVID-19 VACCINE (5 - Booster for Pfizer series) [facility] Start: 04-18-2022 COVID-19 VACCINE (5 - Pfizer series) COVID-19 VACCINE (5 - Pfizer series) [facility] Start: 04-06-2022 FECAL OCCULT BLOOD FECAL OCCULT BLOOD [facility] Start: 04-06-2022 Screening for malignant neoplasm of colon Fecal Occult Blood [facility] Start: 03-22-2022 Influenza vaccination [facility] Start: 03-11-2022 End: 05-11-2022 CBC W Auto Differential panel - Blood CBC + DIFF Lab Routine Anemia, unspecified type Expected: 03/11/2022 (Approximate), Expires: 05/11/2022 [facility] Work Phone: Comment on above: Expected: 03/11/2022 (Approximate), Expi res: 05/11/2022 Start: 03-11-2022 End: 05-11-2022 Comprehensive metabolic 2000 panel - Serum or Plasma COMP METABOLIC PANEL Lab Routine Uncontrolled type 2 diabetes mellitus with hyperglycemia (HCC) Mixed hyperlipidemia Essential hypertension Expected: 03/11/2022 (Approximate), Expires: 05/11/2022 [facility] Work Phone: Comment on above: Expected: 03/11/2022 (Approximate), Expi res: 05/11/2022 Start: 03-11-2022 End: 05-11-2022 Hemoglobin A1c in Blood HGB A1C Lab Routine Uncontrolled type 2 diabetes mellitus with hyperglycemia (HCC) Expected: 03/11/2022 (Approximate), Expires: 05/11/2022 [facility] Work Phone: Comment on above: Expected: 03/11/2022 (Approximate), Expi res: 05/11/2022 Start: 03-11-2022 End: 05-11-2022 Lipid 1996 panel - Serum or Plasma LIPID PANEL BASIC Lab Routine Mixed hyperlipidemia Essential hypertension Expected: 03/11/2022 (Approximate), Expires: 05/11/2022 [facility] Work Phone: Comment on above: Expected: 03/11/2022 (Approximate), Expi res: 05/11/2022 Start: 03-11-2022 End: 05-11-2022 Thyrotropin [Units/volume] in Serum or Plasma TSH BLD Lab Routine Hypothyroidism, unspecified type Expected: 03/11/2022 (Approximate), Expires: 05/11/2022 [facility] Work Phone: Comment on above: Expected: 03/11/2022 (Approximate), Expi res: 05/11/2022 Start: 02-18-2022 Blood chemistry [facility] Work Phone: Start: 02-17-2022 Blood chemistry [facility] Work Phone: Start: 02-16-2022 End: 04-18-2022 Fungus identified in Unspecified specimen by Culture [facility] Work Phone: Comment on above: Expected: 02/16/2022, Expires: Start: 02-16-2022 Blood chemistry [facility] Work Phone: Start: 02-15-2022 Blood chemistry [facility] Work Phone: Start: 02-14-2022 Blood chemistry [facility] Work Phone: Start: 02-13-2022 Blood chemistry [facility] Work Phone: Start: 02-12-2022 Blood chemistry [facility] Work Phone: Start: 02-11-2022 Patient discharge [facility] Work Phone: Start: 02-10-2022 Inhalation therapy procedure [facility] Work Phone: Start: 02-09-2022 Assessment of risk of venous thromboembolism [facility] Work Phone: Start: 02-09-2022 Care regimes management [facility] Work Phone: Start: 02-09-2022 Insertion of catheter into peripheral vein [facility] Work Phone: Start: 02-09-2022 Measuring intake and output [facility] Work Phone: Start: 02-09-2022 Notification of physician [facility] Work Phone: Start: 02-09-2022 Oxygen therapy [facility] Work Phone: Start: 02-09-2022 Providing care according to standard [facility] Work Phone: Start: 02-09-2022 Provision of activity privileges [facility] Work Phone: Start: 02-09-2022 Referral to service [facility] Work Phone: Start: 02-09-2022 [facility] Work Phone: Start: 02-09-2022 Following clinical pathway protocol [facility] Work Phone: Start: 02-09-2022 Verification routine [facility] Work Phone: Start: 02-09-2022 Admission procedure [facility] Work Phone: Start: 02-09-2022 Blood culture [facility] Work Phone: Start: 02-09-2022 [facility] Work Phone: Start: 02-09-2022 Hepatitis C antibody, confirmatory test DILATED RETINAL EXAM [facility] Start: 02-09-2022 Patient referral to dietitian [facility] Work Phone: Start: 02-08-2022 Hemoglobin A1c/Hemoglobin.total in Blood HBA1C [facility] Start: 01-18-2022 Influenza vaccination INFLUENZA (#1) [facility] Comment on above: Postponed from 03/22/2021 (Declined at t his time) Start: 01-11-2022 3 comp foot exam completed DIABETIC FOOT EXAM [facility] Start: 01-11-2022 Adult depression screening assessment DEPRESSION SCREENING [facility] Start: 01-11-2022 HEPATITIS C SCREENING HEPATITIS C SCREENING [facility] Comment on above: Postponed from 1984 (Declined at t his time) Start: 01-11-2022 HIV SCREENING HIV SCREENING [facility] Comment on above: Postponed from 1984 (Declined at t his time) Start: 01-06-2022 Hemoglobin A1c/Hemoglobin.total in Blood HBA1C [facility] Start: 07-22-2021 DEPRESSION ASSESSMENT DEPRESSION ASSESSMENT [facility] Start: 07-08-2021 Hepatitis B screening URINE ALBUMIN:CREATININE RATIO [facility] Start: 06-21-2021 COVID-19 VACCINE (4 - Booster for Pfizer series) COVID-19 VACCINE (4 - Booster for Pfizer series) [facility] Start: 01-08-2021 COVID-19 VACCINE (3 - Booster for Pfizer series) COVID-19 VACCINE (3 - Booster for Pfizer series) [facility] Start: 02-24-2019 Screening for malignant neoplasm of colon COLORECTAL CANCER SCREENING DISCUSSION [facility] Start: 2016 SHINGRIX VACCINE (1 of 2) SHINGRIX VACCINE (1 of 2) [facility] Start: 2016 Zoster vaccine hzv live for subcutaneous use ZOSTER (SHINGLES) VACCINE (1 of 2) [facility] Start: 02-04-2013 PNEUMOCOCCAL (2 - PCV) PNEUMOCOCCAL (2 - PCV) [facility] Start: 02-04-2013 Pneumococcal vaccination Pneumococcal Vaccine (2 - PCV) [facility] Start: 12-04-2011 COLOGUARD (FIT-DNA) COLOGUARD (FIT-DNA) [facility] Start: 12-04-[address] COLONOGRAPHY [facility] Start: 12-04-2011 Screening for malignant neoplasm of colon [facility] Start: 12-04-2011 SIGMOIDOSCOPY SIGMOIDOSCOPY [facility] Start: 2006 Lipid panel LIPID SCREENING [facility] Start: 12-04-1987 Screening for malignant neoplasm of cervix CERVICAL CANCER SCREENING DISCUSSION [facility] Start: 1985 HEPATITIS B (1 of 3 - Risk 3-dose series) HEPATITIS B (1 of 3 - Risk 3-dose series) [facility] Start: 1985 Hepatitis B vaccination HEP B VACCINE (1 of 3 - 19+ 3-dose series) [facility] Start: 1985 Hepatitis B Vaccine (1 of 3 - 19+ 3-dose series) Hepatitis B Vaccine (1 of 3 - 19+ 3-dose series) [facility] Start: 1984 Anxiety Screening Anxiety Screening [facility] Start: 1984 BP CONTROLLED (<130/80) [facility] Start: 1984 Depression Screening Depression Screening [facility] Start: 1984 HEPATITIS C SCREENING HEPATITIS C SCREENING [facility] Start: 1984 Hepatitis C screening Hepatitis C Screening [facility] Start: 1984 HIV SCREENING HIV SCREENING [facility] Start: 1984 HIV screening HIV Screening [facility] Start: 1981 HIV screening HIV SCREENING DISCUSSION [facility] Start: 1966 HEPATITIS B (1 of 3 - 3-dose series) HEPATITIS B (1 of 3 - 3-dose series) [facility] Start: 1966 Hepatitis B Vaccine (1 of 3 - 3-dose series) Hepatitis B Vaccine (1 of 3 - 3-dose series) [facility] Start: 1966 Hepatitis C screening HEPATITIS C VIRUS SCREENING [facility] Start: 1966 Thyroid stimulating hormone measurement TSH [facility] Bacteria identified in Blood by Culture Blood Culture [facility] Work Phone: Bacteria identified in Urine by Culture Urine Culture [facility] Bacteria identified in Urine by Culture URINE CULTURE Microbiology Routine Urinary tract infection with hematuria, site unspecified Ordered: 08/07/2022 [facility] Work Phone: Comment on above: Ordered: 08/07/2022 Blood culture [facility] Work Phone: JUDIE / TRICHOMONA S AMPLIFICATION JUDIE / TRICHOMONAS AMPLIFICATION Lab Routine Vaginal itching Ordered: 02/16/2022 [facility] Work Phone: Comment on above: Ordered: 02/16/2022 CBC W Auto Different ial panel - Blood [facility] CHROMOGRANIN A CHROMOGRANIN A L ab Routine Neuroendocrine tumor 05/07/2024 7:12 AM EDT [facility] Comprehensive metabo lic 2000 panel - Serum or Plasma [facility] End: 12-24-2024 CT Abdomen and Pelvis WO and W contrast IV [facility] Comment on above: 1 Occurrences starting 12/24/2024 until 12/24/2024 End: 12-17-2025 DBT Breast - bilateral screening AMY SCREENING W JORGE ALBERTO Radiology Routine Encounter for screening mammogram for breast cancer 1 Occurrences starting 11/17/2024 until 12/17/2025 [facility] Work Phone: Comment on above: 1 Occurrences starting 11/17/2024 until 12/17/2025 GASTRIN - NON-STIMULATED GASTRIN - NON-STIMULATED Lab Routine Neuroendocrine tumor 05/07/2024 7:12 AM EDT [facility] GASTRIN - NON-STIMULATED GASTRIN - NON-STIMULATED Lab Routine Neuroendocrine neoplasm of stomach 12/24/2024 1:15 PM EDT [facility] Glucose [Mass/volume ] in Serum or Plasma [facility] Work Phone: Glucose [Mass/volume ] in Serum or Plasma GLUCOSE, BLOOD (POC) Lab Routine Rash, skin Ordered: 02/16/2022 [facility] Work Phone: Comment on above: Ordered: 02/16/2022 Influenza virus A an d B RNA and SARS-CoV-2 (COVID-19) N gene panel - Respiratory specimen by [place] with probe detection COVID WITH FLUA+B, ROUTINE Microbiology Routine Acute cough 10/01/2022 9:26 AM EDT [facility] Work Phone: Magnesium measurement [facility] End: 01-16-2025 MG Breast Screening AMY SCREENING Radiology Routine Encounter for screening mammogram for breast cancer 1 Occurrences starting 12/18/2023 until 01/16/2025 [facility] Work Phone: Comment on above: 1 Occurrences starting 12/18/2023 until 01/16/2025 PANCREATIC POLYPEPTIDE PANCREATI C POLYPEPTIDE Lab Routine Neuroendocrine neoplasm of stomach 12/24/2024 1:15 PM EDT [facility] Work Phone: Patient Education [facility] Work Phone: Patient referral [facility] Work Phone: Percutaneous tests w/allergenic extracts ALLRGY SKN TST (EXTRACTS) IMMEDI Procedures Routine Nonallergic rhinitis Ordered: 08/30/2022 [facility] Work Phone: Comment on above: Ordered: 08/30/2022 Procedure [facility] Prothrombin time [facility] SURG PATH REQUEST [facility] Comment on above: Release Upon Ordering for 1 Occurrences starting 06/23/2024, 1 completed SURG PATH REQUEST [facility] Comment on above: Release Upon Ordering for 1 Occurrences starting 09/03/2024, 1 completed Urine culture Urine Culture [facility] Work Phone: Urine culture [facility] Urine culture [facility] Vitamin D, 25-hydrox y measurement [facility] End: 12-16-2023 XR FOOT GENERAL 3V AP/LAT/OBL BILATERAL XR FOOT GENERAL 3V AP/LAT/OBL BILATERAL Radiology Routine Bilateral foot pain 1 Occurrences starting 11/16/2022 until 12/16/2023 [facility] Work Phone: Comment on above: 1 Occurrences starting 11/16/2022 until 12/16/2023 [facility] Immunizations Immunization Date Immunization Notes Care Provider [facility] 09-02-2024 tetanus toxoid, redu james diphtheria toxoid, and acellular pertussis vaccine, adsorbed; Translations: [Boostrix (Tdap)] VERO ORTEZ APRN-CASTING ASSISTANT [facility] 09-02-2024 Pneumococcal conjuga te PCV20, polysaccharide [id number] conjugate, adjuvant, PF; Translations: [Prevnar 20] VERO ORTEZ PAPER BALER-CASTING ASSISTANT [facility] 05-11-2024 influenza, injectabl e, quadrivalent, contains preservative; Translations: [Fluarix PF Prefilled Syringe ] VERO MAST PAPER BALER-CASTING ASSISTANT [facility] 04-04-2024 influenza, seasonal, injectable, preservative free VERO MAST SOFTWARE SALES EXECUTIVE Work Phone: [facility] 05-03-2023 influenza, injectabl e, quadrivalent, contains preservative Papa Douglass MD Work Phone: [facility] 05-03-2023 pneumococcal (PCV20) vaccine, 20 valent (PREVNAR 20) Papa Douglass MD Work Phone: [facility] 05-03-2023 pneumococcal Conjuga te, unspecified formulation Papa Douglass MD Work Phone: [facility] Work Phone: 05-03-2023 influenza virus vaccine, unspecified formulation [facility] Work Phone: [facility] 02-19-2021 Covid (Pfizer) Dr. Papa swiftwahkon Work Phone: [facility] 08-10-2020 COVID-19 vaccine, ag e 12+ yr (PFIZER-BIONTECH - PURPLE TOP) Coco Waters PAPER BALER.CASTING ASSISTANT Work Phone: [facility] 07-13-2020 COVID-19 vaccine, ag e 12+ yr (PFIZER-BIONTECH - PURPLE TOP) Coco Waters PAPER BALER.CASTING ASSISTANT Work Phone: [facility] 04-21-2020 influenza, seasonal, injectable Coco Waters APRN.CASTING ASSISTANT Work Phone: [facility] 04-21-2020 influenza virus vaccine, unspecified formulation Mela Murphy APRN.CASTING ASSISTANT Work Phone: [facility] [facility] 06-06[facility]2018 tetanus toxoid, redu james diphtheria toxoid, and acellular pertussis vaccine, adsorbed Coco Waters APRN.CASTING ASSISTANT Work Phone: [facility] 04-04-2017 influenza, injectabl e, quadrivalent, contains preservative Coco Tannhof PAPER BALER.CASTING ASSISTANT Work Phone: [facility] 01-24-2017 tetanus toxoid, redu james diphtheria toxoid, and acellular pertussis vaccine, adsorbed Coco Tannhof PAPER BALER.CASTING ASSISTANT Work Phone: [facility] 05-20-2016 influenza, injectabl e, quadrivalent, contains preservative Coco Tannhof PAPER BALER.CASTING ASSISTANT Work Phone: [facility] 08-02-2015 influenza, injectabl e, quadrivalent, contains preservative Coco Tannhof PAPER BALER.[facility] Work Phone: [facility] 08-02-2015 influenza, injectabl e, quadrivalent, preservative free Cocokobi Gonzalezhof PAPER BALER.CASTING ASSISTANT Work Phone: [facility] 05-26-2012 influenza virus vaccine, unspecified formulation Coco Gonzalezhof PAPER BALER.[facility] Work Phone: [facility] 02-05-2012 pneumococcal polysaccharide vaccine, 23 valent Coco Gonzalezhof PAPER BALER.[facility] Work Phone: [facility] Payers Date Payer Category Payer Medicaid (Managed Care) [facility] [id number] 2024 Self-pay [id number] 2023 Unknown [id number] 2022 Medicaid .[id number] 1.13.159.2 .[id number] 2022 Government (not [facility] care or Medicaid) [facility] [id number] .[id number] 2022 Unknown [id number]. 1.13.159.2 .7.3.381584.315 2011 Private Health Insurance [employer] A ETNA CHOICE POS II [id number] 2011-Present [phone] [address] [place] [address] POS [id number] 1.2.840.651101.1.13.159.2 .7.3.802828.315 2011 Private Health Insurance [id number] 2011 Private Health Insurance 1.2 .840.295764.1.13.159.2 .7.3.605533.315 1966 Unknown [id number] 2.840.1.475524.3.579.2 1966 Unknown [id number] 2.16840.1.091584.3.579.2 1966 Unknown [id number] 2.16.840.1.709114.3.579.2 1966 Unknown [id number] 2.16840.1.927222.3.579.2 1966 Unknown [id number] 2.16.840.1.994722.3.579.2 1966 Unknown [id number] 2.16.840.1.114625.3.579.2 1966 Unknown [id number] 2.16.840.1.333512.3.579.2 1966 Unknown [id number] 2.16.840.1.951806.3.579.2 1966 Unknown [id number] 2.16.840.1.798845.3.579.2 1966 Unknown [id number] 2.16.840.1.048340.3.579.2 1966 Unknown [id number] 2.16.840.1.906604.3.579.2 1966 Unknown [id number] 2.16.840.1.978437.3.579. 1966 Unknown [id number] 2.16.840.1.089024.3.579. 1966 Unknown [id number] 2.16.840.1.735799.3.579.2 1966 Unknown [id number] 2.16.840.1.162501.3.579.2 1966 Unknown [id number] 2.16.840.1.339108.3.579.2 1966 Unknown [id number] 2.16.840.1.483031.3.579.2 1966 Unknown [id number] 2.16.840.1.938892.3.579.2 1966 Unknown [id number] 2.16.840.1.538911.3.579.2 1966 Unknown [id number] 2.16.840.1.535820.3.579.2 .62 1966 Unknown [id number] 2.16.840.1.719445.3.579.2 .62 1966 Unknown [id number] 2.16.840.1.145834.3.579.2 .1966 Unknown [id number] 2.16.840.1.265962.3.579.2 .1966 Unknown [id number] 2.16.840.1.371906.3.579.2 .1966 Unknown [id number] 2.16.840.1.600267.3.579.2 .1966 Unknown [id number] 2.16.840.1.363439.3.579.2 .1966 Unknown [id number] 2.840.1.425565.3.579.2 .1966 Unknown [id number] 2.840.1.851440.3.579.2 .1966 Unknown [id number] 2.840.1.862221.3.579.2 .1966 Unknown [id number] 2.840.1.108053.3.579.2 .594 1966 Unknown [id number] 2.16840.1.831337.3.579.2 .594 1966 Unknown [id number] 2.16.840.1.416179.3.579.2 .594 1966 Unknown [id number] 2.16.840.1.360216.3.579.2 .594 1966 Unknown [id number] 2.16.840.1.384222.3.579.2 .594 1966 Unknown [id number] 2.16.840.1.129958.3.579.2 .594 1966 Unknown [id number] 2.16.840.1.954381.3.579.2 .594 1966 Unknown [id number] 2.16.840.1.998393.3.579.2 .594 1966 Unknown [id number] 2.16.840.1.355835.3.579.2 .594 1966 Unknown [id number] 2..840.1.272893.3.579.2 .594 1966 Unknown [id number] 2.16.840.1.802237.3.579.2 .594 1966 Unknown [id number] 2.840.1.353228.3.579.2 .594 1966 Unknown [id number] 2..840.1.531044.3.579.2 .594 1966 Unknown [id number] .0.1.402010.3.579.2 .594 1966 Unknown [id number] 2.840.1.840257.3.579.2 .594 1966 Unknown [id number] 2.840.1.572106.3.579.2 .594 1966 Unknown [id number] 2.840.1.214505.3.579.2 .594 1966 Unknown [id number] .0.1.728000.3.579.2 .594 Unknown [id number] Unknown [id number] Unknown [id number] 2.16840.1.542243.3.579.2 .462 Unknown [id number] 2.16.840.1.955101.3.579.2 .462 Unknown [id number] 2.840.1.413752.3.579.2 .462 Unknown [id number] 2.16.840.1.261475.3.579.2 .462 Unknown [id number] 2.16.840.1.583181.3.579.2 .462 Unknown [id number] 2.16.840.1.152582.3.579.2 .462 Unknown [id number] 2.16.840.1.036387.3.579.2 .462 Unknown [id number] 2.16.840.1.850756.3.579.2 .462 Unknown [id number] 2.16.840.1.234960.3.579.2 .462 Unknown [id number] 2.16.840.1.431328.3.579.2 .462 Unknown [id number] 2.840.1.051505.3.579.2 .462 Unknown [id number] 2.16840.1.048441.3.579.2 .462 Unknown [id number] 2..840.1.340386.3.579.2 .462 Unknown [id number] 2.16.840.1.582679.3.579.2 .462 Unknown [id number] 2.16.840.1.926205.3.579.2 .462 Unknown [id number] 2.16840.1.701633.3.579.2 .462 Unknown [id number] 2.840.1.553808.3.579.2 .462 Unknown [id number] 2.16.840.1.896973.3.579.2 .462 Unknown [id number] 2.16.840.1.600109.3.579.2 .462 Unknown [id number] 2.16.840.1.107842.3.579.2 .462 Unknown [id number] 2.16.840.1.906728.3.579.2 .462 Unknown [id number] 2.16840.1.020536.3.579.2 .462 Unknown [id number] 2.16.840.1.675251.3.579.2 .462 Unknown [id number] 2.16.840.1.601977.3.579.2 .462 Unknown [id number] 2.16.840.1.406615.3.579.2 .462 Unknown [id number] 2.16.840.1.918786.3.579.2 .462 Unknown [id number] 2.16.840.1.070710.3.579.2 .462 Unknown [id number] 2.16.840.1.159807.3.579.2 .462 Unknown [id number] 2.840.1.889808.3.579.2 .462 Unknown [id number] 2.840.1.166029.3.579.2 .462 Unknown [id number] 2.840.1.468698.3.579.2 .462 Unknown [id number] 2.840.1.116987.3.579.2 .462 Unknown [id number] 2.840.1.530337.3.579.2 .462 Unknown [id number] 2.16.840.1.712417.3.579.2 .462 Unknown [id number] 2.16840.1.787563.3.579.2 .462 Unknown [id number] 2..840.1.154551.3.579.2 .462 Unknown [id number] 2.16.840.1.677690.3.579.2 .462 Unknown [id number] 2.16.840.1.395909.3.579.2 .462 Unknown [id number] 2.16.840.1.060496.3.579.2 .462 Unknown [id number] 2.16.840.1.242880.3.579.2 .462 Unknown [id number] 2.16840.1.403424.3.579.2 .462 Unknown [id number] 2.840.1.084485.3.579.2 .462 Unknown [id number] 2.840.1.585865.3.579.2 .462 Unknown [id number] 2.840.1.273869.3.579.2 .462 Unknown [id number] 2.0.1.041334.3.579.2 .462 Unknown [id number] 2.0.1.833151.3.579.2 .462 Social History Date Type Detail Facility Start: 05-29-2012 End: 01-10-2025 Tobacco smoking status NHIS Ex-smoker [facility] Start: 05-29-2000 End: 05-29-2010 History of tobacco use Current smoker [facility] Start: 05-29-2000 End: 05-29-2010 History of tobacco use Cigarette Smoker [facility] Start: 05-29-2012 End: 12-31-2024 Cigarettes smoked current (pack per day) - Reported 0.5 [facility] Start: 05-29-2012 End: 05-07-2024 Tobacco use and exposure Smokeless tobacco non-user [facility] Start: 10-06-2021 End: 07-02-2023 Alcohol intake Current drinker of alcohol (finding) [facility] Start: 02-24-2018 History SDOH Alcohol Comment occasionally [facility] Start: 02-08-2021 History SDOH Social Connections Phone 3 [facility] Start: 02-08-2021 History SDOH Social Connections Taoist 1 [facility] Start: 02-08-2021 History SDOH Social Connections Membership 2 [facility] Start: 02-08-2021 History SDOH Social Connections Living 7 [facility] Start: 02-08-2021 History SDOH Physica l Activity DPW 0 [facility] Start: 02-08-2021 History SDOH Financial 4 [facility] Start: 1965 Sex Assigned At Not on file [facility] Start: 09-29-2021 End: 06-21-2022 Exposure to SARS-CoV-2 (event) Not sure [facility] Start: 02-09-2022 End: 04-18-2023 Tobacco smoking status NHIS Unknown if ever smoked [facility] Start: 09-26-2020 Cigarettes [facility] Start: 1965 Sex Assigned At Female [facility] Start: 03-19-2022 Tobacco Comment one pack per w [place] for 2 years [facility] Start: 09-12-2017 Occasional [facility] Start: 09-12-2017 None [facility] Start: 09-12-2017 With Family [facility] Start: 02-08-2021 End: 12-31-2024 Social connection and isolation panel [facility] Do you belong to any clubs or organizations such as samaritan groups, unions, fraternal or athletic groups, or school groups? No [facility] Are you now , , , , never or living with a partner? Never [facility] How hard is it for y ou to pay for the very basics like food, housing, medical care, and heating Not very hard [facility] Adult Depression Screening Assessment 0 [facility] Work Phone: (I/We) worried whephan er (my/our) food would run out before (I/we) got money to buy more. Never true [facility] In the past 12 month s, was there a time when you were not able to pay the mortgage or rent on time? Yes [facility] Start: 06-21-2023 End: 11-06-2024 Tobacco smoking status Never smoked tobacco (finding) [facility] Sex Assigned At [facility] Start: 05-07-2024 End: 12-31-2024 Alcoholic beverage intake Ex-drinker (finding) [facility] Start: 08-30-2005 End: 03-01-2020 Sex Female (finding) [facility] NEGATED: Highlighted row Not [facility] Medical Equipment Procedure Code Equipment Code Equipment Origin al Text Equipment Identifier Dates EGD, with monitored anesthesia care HEMOSPRAY FDA Start: 04-04-2024 EGD, with monitored anesthesia care Tissue marking ink [id number] FDA Start: 04-04-2024 EGD, with monitored anesthesia care Ligation clip, reny [id number] FDA Start: 04-04-2024 EGD, with monitored anesthesia [...] Start: 04-04-2024 Mirena Iud [id number] - [id number] Start: 01-06-2013 Comment on above: Description: Mirena [id number], [id number], [id number] Start: 07-01-2019 End: 01-19-2023 Comment on above: [...] Facility 03-30-2024 Functional Status Safety level maintained [facility] 02-25-2024 Functional Status Independent [facility] 02-25-2024 Functional Status ID band on, Allergy Band on, Call device within reach, Bed in low position, Wheels locked, Upper/Half-Length side-rails up, Safety level maintained [facility] 04-20-2023 Functional status Ambulates;Up ad radha [facility] Work Phone: 02-11-2022 Functional status Chair [facility] Work Phone: 02-21-2015 Are you deaf, or do you have serious difficulty hearing No 02/21/2015 4:24 PM EDT Bg Johnston LPN No [facility] 02-21-2015 Are you blind, or do you have serious difficulty seeing, even when wearing glasses No 02/21/2015 4:24 PM EDT Bg Johnston LPN No [facility] 02-21-2015 Do you have serious difficulty walking or climbing stairs No 02/21/2015 4:24 PM EDT Bg Johnston LPN No [facility] 02-21-2015 Do you have difficul ty dressing or bathing No 02/21/2015 4:24 PM EDT Bg Johnston LPN No [facility] 02-21-2015 Because of a physica l, mental, or emotional condition, do you have difficulty doing errands alone such as visiting a physician's office or shopping No 02/21/2015 4:24 PM EDT Bg Johnston LPN No [facility] Mental Status Date Assessment Result Facility 11-03-2024 Cognitive function Level Of Cons ciousness Awake;Alert;Appropriate;Fol lows Commands [facility] Work Phone: 07-29-2024 Cognitive function Level Of Cons ciousness Sedated [facility] Work Phone: 07-29-2024 Cognitive function Voice/Name [facility] Work Phone: 03-30-2024 Mental Status Oriented x 4 [facility] 02-25-2024 Mental Status Orientation Oriented x 4 [facility] 02-25-2024 Mental Status [facility] 04-20-2023 Cognitive function Voice/Name [facility] Work Phone: 01-20-2023 Cognitive function Level Of Cons ciousness Awake;Alert;Appropriate [facility] Work Phone: 01-07-2023 Cognitive function Level Of Cons ciousness Awake;Alert;Appropriate;Fol lows Commands [facility] Work Phone: 10-25-2022 Cognitive function Level Of Cons ciousness Awake;Alert;Appropriate;Fol lows Commands [facility] Work Phone: 09-21-2022 Cognitive function Level Of Cons ciousness Awake;Alert;Appropriate;Fol lows Commands [facility] Work Phone: 08-31-2022 Cognitive function Voice/Name [facility] Work Phone: 02-11-2022 Cognitive function Voice/Name [facility] Work Phone: 02-09-2022 Cognitive function Level Of Cons ciousness Awake;Drowsy [facility] Work Phone: 02-21-2015 Because of a physica l, mental, or emotional condition, do you have serious difficulty concentrating, remembering, or making decisions No 02/21/2015 4:24 PM Bg Blount LPN No [facility] Clinical Notes 10-12-2021 to 01-11-2025 Note Date & Type Note Facility 01-11-2025 Discharge summary [facility] 01-11-2025 Radiology Diagnostic study note [facility] [address] [place] [address] Abdomen/Pelvis without Cont MR#: [id number] Acct: [id number] Name: LEROY MONTEJO Rep #: [id number] : 1965 F 59 From: Babatunde Gustafson MD PCP: DARLING KWAN Status: REG ER Study:Abdomen/Pelvis without Cont Date of Exa m: 01/10/25 Exam# [id number] Ordering Dr: Jacobo Gaspar DO PROCEDURE: ABDOMEN/PELVIS WITHOUT CONT 01/10/2025 REASON FOR EXAM: PAIN TECHNIQUE: ABDOMEN/PELVIS WITHOUT CONT Noncontrast technique limits evaluation of the abdominal and pelvic viscera. Coronal and Sagittal reconstruction series were provided. One or more dose reduction techniques were used (e.g., Automated exposure control, adjustment of the mA and/or kV according to patient size, use of iterative reconstruction technique). COMPARISON: None FINDINGS: CT SCAN OF THE ABDOMEN AND PELVIS WITHOUT ORAL OR IV CONTRAST. CLINICAL INDICATION: Abdominal pain TECHNIQUE: Axial and reformatted sagittal and coronal images of the abdomen pelvis obtained without IV contrast administration. COMPARISON: None. FINDINGS: The visualized lung bases are unremarkable. The heart is normal in size. The tiny arteries are calcified. The mitral valve is calcified. The liver is enlarged. Normal gallbladder and extrahepatic biliary system. Thespleen is enlarged. Multiple calcified granulomas are seen in its parenchyma. Normal pancreas. Normal bilateral adrenal glands. Normal size of the right kidney. There is no right renal mass. There are no right renal calculi. There is no right hydronephrosis. Normal visualized right ureter. Normal size of the left kidney. There is no left renal mass. 3 mm stone is seen in the middle pole of the left kidney. There is no left hydronephrosis. Normal visualized left ureter. Normal visualized stomach. Normal small intestine. Fecal stasis is seen in thelarge bowel. The appendix is visualized and appears normal. There is no demonstrated peritoneal fluid. Normal abdominal aorta. Normal inferior vena cava. Normal retroperitoneum. Normal urinary bladder. There is no pelvic mass lesion or lymphadenopathy. There is no pelvic fluid. An IUD is seen in the position. Small calcified Normal abdominal wall. Normal osseous structures. CT/Abdomen/Pelvis without Cont IMPRESSION: No acute intra-abdominal process. Hepatosplenomegaly. Status post cholecystectomy. Fecal stasis, a component of constipation. Reading Location: [place] [address] CC: Dr. Jacobo Solorzano DO; DARLING KWAN ~ Machine Feeder Raw Stock: Signed [facility] 01-10-2025 Discharge summary Note Date/Time January 11, 2025 12:41am [facility] Medical Records Department [address] [address] Emergency Department Summary 01/10/25 MR#: [id number] Acct: [id number] Name: LEROY MONTEJO Rep #:[id number] : 1965 59 From: Jacobo ramirez DO PCP: DARLING KWAN Status:ADM IN Location: [place] [address] HPI HPI - Female History of Present Illness Chief Complaint: Complaint Narrative Narrative: Chief complaint and HPI: Lower abdominal pain. 59-year-old female with past medical history of chronic hypoxia on 2 to 3 L nasal cannula, CKD, HTN, DM presents for evaluation of lower abdominal pain. Associated symptoms are urinary frequency, hesitancy, and urgency. Onset of symptoms today. Denies anydysuria or hematuria. Denies any fever, chills, shortness of breath, chest pain, back pain, nausea, vomiting, diarrhea. Patient does endorse constipation.Has a past medical history of urolithiasis. Review of systems: See HPI Medications: As listed on the chart Allergies: As listed on the chart PFSH: Per chart Vital signs: As listed on the chart. Reviewed. Physical exam: Gen: A&O x3, NAD Head: Normocephalic, atraumatic Eyes: No sclera icterus, conjunctiva clear ENT: Moist mucous membranes Neck: Trachea midline, No JVD CV: RRR, no murmurs, no peripheral edema Resp: Lungs CTA BL, no w/r/c, on baseline 3 L nasal cannula GI: Abd soft, non-distended, non-tender, no r/r/g : No CVA tender Musc: Full ROM, no deformity Skin: Warm, dry Neuro: Alert, oriented, grossly intact, sensation intact Psych: Cooperative, appropriate mood and affect [facility] Medical History Anxiety Loose, teeth Post-menopausal Insulin [...] disease Anemia Arthritis Morbid obesity Hyperlipidemia Hypothyroidism Home Medications ?Medication ?Instructions ?Recorded ?Last Taken ?Type blood-glucose sensor (Dexcom G7 #3 ea 02/18/23 Unknown Rx Sensor device) blood-glucose,baling machine tender,cont #1 ea 02/18/23 Unknown Rx (Dexcom G7 Staking Engineer) acetaminophen 500 mg tablet 500 - 1,000 mg PO Q6H PRN fever or 04/18/23 03/03/24 History pain blood sugar diagnostic (OneTouch #100 ea 09/23/23 Unkn own Rx Verio test strips) levothyroxine 200 mcg tablet 200 mcg PO DAILY hypothyr oidism 09/23/23 03/03/24 Rx #90 tabs fluoxetine 40 mg capsule 40 mg PO DAILY depression Unknown History insulin regular hum U-500 conc 500 100 unit (0.2 mL) s ubcut TID DM 03/12/24 Unknown Rx unit/mL(3 mL) subcut pen (Humulin #18 mL R U-500 (Conc) Insulin Kwikpen) pantoprazole 40 mg tablet,delayed 40 mg PO BID 30 days #60 tabs 04/07/24 Unknown Rx release sucralfate 1 gram tablet 1 g PO 1HR_ACHS 14 days #42 tabs 04/07/24 Unknown Rx fenofibrate nanocrystallized 48 mg 48 mg PO QHS 1 saray h #30 tabs 05/09/24 Unknown Rx tablet dulaglutide 4.5 mg/0.5 mL 4.5 mg subcut NARVAEZ 07/28/24 History subcutaneous pen injector (Trulicity) lancets 30 gauge (Easy Touch #100 ea 09/24/24 Unknown Rx Lancets) cholecalciferol (vitamin D3) 1,250 1,250 mcg PO QWEEK 09/30/24 Unknown History mcg (50,000 unit) capsule ferrous sulfate 325 mg (65 mg 325 mg PO QODAY 09/30/24 Unknown History iron) tablet gabapentin 300 mg capsule 300 mg PO TID 30 days #90 ca ps 09/30/24 Unknown Rx oxycodone-acetaminophen 5 mg-325 1 tab PO Q6H PRN pain 3 days #12 09/30/24 Unknown Rx mg tablet (Percocet) tabs albuterol sulfate 90 mcg/actuation 2 inh inhalation Q4 -6H PRN 10/30/24 Unknown Rx aerosol inhaler shortness of breath or wheez ing #8.5 grams fluticasone 500 mcg-salmeterol 50 1 inh inhalation Q12 H #60 ea 10/30/24 Unknown Rx mcg/dose blistr powdr for inhalation (Advair Diskus) benzonatate 200 mg capsule 200 mg PO TID PRN cough #20 caps 12/30/24 Unknown Rx Allergy/AdvReac Type Severity Reaction Status Date / Time codeine Allergy Angioedema Verified 01/10/25 22:14 nitrofurantoin Allergy edema Verified 01/10/25 22:14 Penicillins Allergy Rash Verified 01/10/25 22:14 Sulfa (Sulfonamide Allergy Rash Verified 01/10/25 22:14 Antibiotics) sulfamethoxazole (Bactrim) Allergy Unknown Verified 01/10/25 22:14 trimethoprim (Bactrim) Allergy Unknown Verified 01/10/25 22:14 Family History Father Cancer Mother Diabetes Grandfather Heart disease Grandmother CVA (cerebral vascular accident) Surgical History Hx of dilation and curettage Hx laparoscopic cholecystectomy Hx of colonoscopy History of esophagogastroduodenoscopy (EGD) Social History household members: none housing: apartment pets and animals: No Smoking Status: Former smoker Tobacco: How many years used: 2 alcohol intake: former details: Quit 2000 substance use type: does not use caffeine: Yes Type: tea EXAM Physical Exam Const Vital Signs: 01/10/25 22:13 01/10/25 22:43 01/10/25 22:45 Temperature 98.8 F Temperature Source Oral Pulse Rate 124 H 109 H 103 H Respiratory Rate 20 H 16 20 H Blood Pressure 167/77 H 131/68 H 131/68 H Blood Pressure Mean 107 89 89 Pulse Ox 95 99 96 Oxygen Delivery Method Nasal Cannula Room Air Room Air Oxygen Flow Rate (L/min) 3 01/10/25 23:09 01/10/25 23:15 01/10/25 23:30 Temperature Temperature Source Pulse Rate 104 H 103 H 104 H Respiratory Rate 32 H 29 H 23 H Blood Pressure Blood Pressure Mean Pulse Ox 98 99 99 Oxygen Delivery Method Oxygen Flow Rate (L/min) 01/10/25 23:45 01/11/25 00:00 01/11/25 00:15 Temperature Temperature Source Pulse Rate 105 H 102 H 101 H Respiratory Rate 24 H 26 H 27 H Blood Pressure 128/64 H Blood Pressure Mean 81 Pulse Ox 100 99 99 Oxygen Delivery Method Oxygen Flow Rate (L/min) 01/11/25 00:24 Temperature Temperature Source Pulse Rate 99 Respiratory Rate 17 Blood Pressure 128/64 H Blood Pressure Mean 85 Pulse Ox 100 Oxygen Delivery Method Oxygen Flow Rate (L/min) MDM MDM MDM Narrative Medical decision making narrative: 59-year-old female with past medical history of chronic hypoxia on 2 to 3 L nasal cannula, CKD, HTN, DM presents for evaluation of lower abdominal pain. Associated symptoms are urinary frequency, hesitancy, and urgency. Onset of symptoms today. Differential diagnosis includes but is not limited to UTI, urolithiasis, constipation, electrolyte abnormality, NARAYAN. NS bolus, Zofran, Toradol ordered for symptoms. Laboratory workup ordered including CT abdomen pelvis without contrast. On chart review, I will in urgent care on 12/30/2024. At that time she was diagnosed with COVID-19 infection. Patient states the symptoms have all improved. CBC with leukocytosis of 16.5. Patient states she was on steroids last week. No anemia. Platelets unremarkable. UA positive for UTI. Urine culture sent. On chart review, patient has grown E. coli in herprevious urine cultures. Both susceptible to Rocephin. Rocephin ordered. Lactic acid unremarkable. BMP shows baseline hyponatremia at 130. No NARAYAN. Patient has hyperglycemia of 486. No anion gap. Patient states her sugars havebeen high since last week being on steroids. UTI likely also contributing. On chart review, patient takes Trulicity as well as Humulin R500 100 unit 3 times daily. States she did take it this evening. Will give 10 units IV insulin and reassess glucose after fluids. CT abdomen pelvis shows a 3 mm left kidney stonehowever no urolithiasis. No hydronephrosis. Patient has fecal stasis in the large bowel, component of constipation. Hepatosplenomegaly. IUD. Patient's symptoms are likely secondary to UTI. On reevaluation, patient is still tachycardic. Given her tachycardia, leukocytosis, UTI, hyperglycemia, I do think patient would benefit from admission for IV antibiotics. Patient was updated of all results and the plan, she confirmed understanding. Patient discussed with the hospitalist who accepted admission. Impression: 1. UTI 2. Hyperglycemia with history of DM2 3. Constipation Lab Data Labs: Laboratory Results - last 24 hr 01/10/25 01/10/25 22:30 22:37 WBC 16.5 H RBC 5.04 Hgb 12.9 Hct 40.4 MCV 80.2 L MCH 25.6 L MCHC 31.9 L RDW Std Deviation 45.1 H RDW Coeff of [place] 15.7 H Plt Count 236 MPV 10.1 Immature Gran % (Auto) 4.600 H Neut % (Auto) 65.9 Lymph % (Auto) 19.6 [place] % (Auto) 8.1 Eos % (Auto) 1.3 Baso % (Auto) 0.5 Absolute Neuts (auto) 10.9 H Absolute Lymphs (auto) 3.24 Nucleated RBC % 0 Sodium 130 L Potassium 5.1 Chloride 94 L Carbon Dioxide 25.0 Anion Gap 11 BUN 15 Creatinine 0.87 Estim Creat Clear Calc 81.25 Est GFR (MDRD) Non-Af 78 BUN/Creatinine Ratio 17.3 Glucose 486 H* Lactic Acid 2.0 Calcium 9.4 Urine Color Yellow Urine Clarity Cloudy Urine pH 6.0 Ur Specific Raymond 1.015 Urine Protein 30 H Urine Glucose (UA) 1000 H Urine Ketones Negative Urine Occult Blood 150 H Urine Nitrite Negative Urine Bilirubin Negative Urine Urobilinogen Normal Ur Leukocyte Esterase 500 H Urine RBC 0-5 SEEN Urine WBC 50-100 SEEN Ur Squamous Epith Cells 0 SEEN Urine Bacteria 4+ Urine Mucus 0 SEEN Radiography Diagnostic Testing: Clinical Impression(s) from Imaging Studies Abdomen/Pelvis CT 01/10/25 22:21 IMPRESSION: No acute intra-abdominal process. Hepatosplenomegaly. Status post cholecystectomy. Fecal stasis, a component of constipation. Reading Location: [place] [address] Discharge Plan Triage Chief Complaint: Complaint ED Provider: Jacobo Solorzano Dx/Rx/DC Orders Primary Care Provider: VERO ORTEZ What to do if you have Problems For any increased pain, shortness of breath, bleeding, nausea or vomiting, chestpain, or any unexpected problems, contact your Primary Care Provider. Call [facility] ([phone]) or report to the closest Emergency Room. Call 911 if necessary. 01/11/25 0041 <Electronically signed by Jacobo Solorzano DO> Cosigner Signature (if applicable): CC: DARLING KWAN ~ Signed [facility] Work Phone: 1(110) 373-104006-12-2025 History of Present illness Narrative* Scott Berrios MD, MPH - 12/31/2024 2:50 PM EDT This telehealth visit is a real time [...] charting) HISTORY OF PRESENT ILLNESS: Ms. Leroy Montejo is a 59 y.o. female with history [...] retrieved. Clip (MR conditional) was placed. Clip fractionating still operator: yuback. - An endoclip was found in the stomach. Removal was successful. - Two gastric polyps (0.9-1.1 cm in the gastric antrum). Resected and retrieved. Clips (MR conditional) were placed. Clip fractionating still operator: [employer]. - 1.5cm post mucosectomy scar in the gastric body. Clips (MR conditional) were placed. Clip fractionating still operator: yuback. - A hypoechoic irregular mass was identified [...] (Please send link to listed mobile # [phone] C/o having issues with acid reflux and she was recently diagnosed with COVID and is she is currently on treatment for this Leroyfroylan Montejo is present today for a follow up [...] gastric mucosa with multifocal well differentiated neuroendocrine tumor.The largest focus measures 5.5 mm. On immunohistochemistry [...] metaplastic gastritis (AMAG). Clinical correlation is recommended. Cartography Supervisor slides were reviewed at the daily GI [...] I, or a Nurse Practitioner or Physician's Surgical Garment Inspector had a Okxo-le-Sjsp Encounter with them. Based upon those findings, [...] x 2 DILATION AND CURETTAGE LAP CHOLECYSTECTOMY [facility] family history includes Breast Cancer (age [...] her 40s. Quit in ~2017. PHYSICAL EXAMINATION: Otherwise N/A as this was [...] the patient. IMPRESSION & PLAN: Ms. Leroy Montejo is a 58 y.o. 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 The gastrohepatic LN has slowly progressively enlarged in size since then (and has ~doubled in size since then). Since 07/2024, it has been more or less stablein size. - I had a long discussion [...] colonoscopy in 6 mo. She will call [facility] for scheduling. C/w iron supplementation. Hyponatremia: Pseudohyponatremia 2/2 hyperglycemia. Advised patient to check glucose at home and follow-up with PCP. COVID19 diagnosis: On paxlovid. Supportive care Elevated transaminases, hepatosplenomegaly: avoid hepatotoxins. Referral to hepatology (patient prefers seeing hepatology locally). Documented by Edward Her, Dr. Berrios on 12/31/2024 at 3:57 PM. All medical [...] with the discharge instructions. documented in this encounterAdena [facility]06-12-[facility] Instructions* Patient Instructions* Scott Berrios MD, MPH - 12/31/2024 2:50 PM EDT Referral to hepatology (local) please send requisition through [facility] RTC in approx [address] Berrios (in person) Labs and scans approx 10 days prior to RTC documented in this encounterAdena Pike Medical Center06-11-2025 Progress note [facility] [address], [address] [place] [address] OFFICE VISIT Date of Service: 12/30/24 MR#: [id number] Acct: [id number] Name: LEROY MONTEJO Rep #: [id number] : 1965 Provider: ALISA Abbott Age/Sex: 59/F Location: [facility] Status: Signed Intake Vital Signs 11/03/24 21:01 12/30/24 10:43 Height 5 ft 1 in BP 128/70 H Blood Pressure Location Lt brachial Position Sitting Respiration 16 Pulse 92 Pulse Source NIBP Temp 98.2 F Temp Source Oral Pulse Oximetry (%) 99 Oxygen Delivery Method room air Intake Visit Reasons: SINUS COMPLAINT/FRANCO/COUGH Chief Complaint: congest, BA, FRANCO, cough Election Assistant Required: No Is patient in pain?: No [...] #3 ea 02/18/23 5 Rx Sensor device) blood-glucose,baling machine tender,cont #1 ea 02/18/23 10/30/24 Rx (Dexcom G7 Staking Engineer) acetaminophen 500 mg tablet 500 - 1,000 [...] subcut NARVAEZ 07/28/24 History subcutaneous pen injector (Trulicity) lancets 30 gauge (Easy Touch #100 ea [...] past year?: No Nurse's Note: congest, BA, FRANCO, cough x 4 days. denies fever, ST. [...] tea HPI HPI Chief Complaint: congest, BA, FRANCO, cough Details: LEROY MONTEJO, is a 59 F who presents to [...] of breath or dyspnea on exertion. No ffus-vlx-asvkkue products taken to assist. Several close contacts [...] today. Patient aware of isolation recommendations and [facility] department notification. Patient contacted her PCPs office [...] fallen in the past year?: No 12/30/24 1107 s ALISA CUELLAR> Date _ Neal CUELLAR Cosigner Signature: Date (if applicable) CC: ~ [facility]06-11-2025 Progress note Author Neal Ruiz [facility] Note Date/Time December 30, 2024 11:0 7am [facility] [address], [address] [place] [address] OFFICE VISIT Date of Service: 12/30/24 MR#: [id number] Acct: [id number] Name: LEROY MONTEJO Rep #: [id number] : 1965 Provider: ALISA Abbott Age/Sex: 59/F Location[facility] Status: Signed Intake Vital Signs 11/03/24 21:01 12/30/24 10:43 Height 5 ft 1 in BP 128/70 H Blood Pressure Location Lt brachial Position Sitting Respiration 16 Pulse 92 Pulse Source NIBP Temp 98.2 F Temp Source Oral Pulse Oximetry (%) 99 Oxygen Delivery Method room air Intake Visit Reasons: SINUS COMPLAINT/FRANCO/COUGH Chief Complaint: congest, BA, FRANCO, cough Election Assistant Required: No Is patient in pain?: No [...] #3 ea 02/18/23 5 Rx Sensor device) blood-glucose,baling machine tender,cont #1 ea 02/18/23 10/30/24 Rx (Dexcom G7 Staking Engineer) acetaminophen 500 mg tablet 500 - 1,000 [...] subcut NARVAEZ 07/28/24 History subcutaneous pen injector (Trulicity) lancets 30 gauge (Easy Touch #100 ea [...] past year?: No Nurse's Note: congest, BA, FRANCO, cough x 4 days. denies fever, ST. [...] tea HPI HPI Chief Complaint: congest, BA, FRANCO, cough Details: LEROY MONTEJO, is a 59 F who presents to [...] of breath or dyspnea on exertion. No nhjj-wvs-jvkbiyc products taken to assist. Several close contacts [...] today. Patient aware of isolation recommendations and [facility] department notification. Patient contacted her PCPs office [...] fallen in the past year?: No 12/30/24 1107 <Electronically signed by Neal CUELLAR> Date _ Neal CUELLAR Cosigner Signature: Date (if applicable) CC: ~ [place] [employer] Work Phone: 1(767) 271-547605-15-2025 Note. MICRO - Microbiology PROCEDURE: Urine Culture [...] Locations *1: This test was performed at: [facility], [address] [place] [address], [facility] , [facility]04-29-2025 NotePatient Outreach (FAMPWS) LEROY MONTEJO ([id number]) 1965 F Date Time Provider Department 11/17/24 [...] for screening mammogram for breast cancer [Z12.31] Order(s):AMY SCREENING W JORGE ALBERTO [3369202] Order #: [id number] FUTURE Prescriptions as of 12/18/2024 - cefdinir [...] times daily until gone. - DEXCOM G7 LODGE SALES ASSOCIATE misc - DEXCOM G7 SENSOR nelly APPLY [...] leg edema [R60.0] 05/17/2023 Encounter Status:Closed by JONNATHAN RAPHAELUSER on 12/18/24[facility] 10-14-2024 Procedure notey [facility]Neurology [address] [place] [address] MR#: [id number] Acct: [id number] Name: LEROY MONTEJO Rep #:[id number] : 1965 58 From: Alberto Qiu DO Referring Dr: Elsa José LICENSED EMBALMER SUPERVISOR-C Status: REG CLI Location: PSN Date: Sex: F C PSN 6 Minute Walk Test 6 Minute Walk Test 6 Minute Walk Test: 6 Minute Walk Test PSN:6-Minute Walk Test Start: 10/06/24 12:53 Freq: Status: Active Protocol: RESP.6MINW Document 10/06/24 12:53 EW (Rec: 10/06/24 12:57 EW [id number]) 6 Minute Walk Test Date Performed 10/06/24 [...] ~ Date Dictated: 10/14/24 1114 Date Transcribed: 10/14/24 111 Machine Feeder Raw Stock: Dr. Alberto Qiu DO Signed [facility]03-12-2025 Radiology Diagnostic study note [facility] Services [address] [place] [address] Foot min 3 Views MR#: [id number] Acct: [id number] Name: LEROY MONTEJO Rep #: [id number] : 1965 F 58 From: Robert Balderas MD PCP: DARLING KWAN Status: REG ER Study:Foot min 3 Views Date of Exam: 07/15 Exam# [id number] Ordering Dr: Margarita Mercado DO PROCEDURE: FOOT [...] of the calcaneus as above. Reading Location: [id number] CC: Steven Mercado DO; DARLING KWAN ~ Machine Feeder Raw Stock: Signed [facility]03-11-2025 Telephone encounter Note* Telephone Encounter - Rosa Cardenas RN - 09/29/2024 11:49 PM EDT Reason for Call: Pt c/o left foot pain she rates 9/10 and is diabetic. Outcome: Disposition- Go to ED now. Pt agreeable to go to [place] ED. Reason for Disposition SEVERE pain Diabetes [...] fever. 10. : na. Protocols used: Foot Ncvr-XEJEW-YI, Diabetes - Foot Problems and Iawnydlom-CWRNZ-WC [facility]03-11-2025 Miscellaneous Notes* Telephone Encounter - Rosa Cardenas RN - 09/29/2024 11:49 PM EDT Reason for Call: Pt c/o left foot pain she rates 9/10 and is diabetic. Outcome: Disposition- Go to ED now. Pt agreeable to go to [place] ED. Reason for Disposition SEVERE pain Diabetes [...] fever. 10. : na. Protocols used: Foot Xqdw-ATBML-BN, Diabetes - Foot Problems and Olzbmiypt-VBHPV-XW documented in this encounterOhiohealth [facility]03-07-2025 Telephone encounter Note * Telephone Encounter - Sridevi Connors RN - 09/25/2024 3:56 PM EST 09/25/2024 3:56 PM RN called patient to let her know the labs were reviewed by Thomas Montero CNP and said this: Hgb mild improvement from 2024 continue iron supplements Office number provided for call back should she have any questions or concerns. --Sridevi Connors RN [facility]03-07-2025 Miscellaneous Notes* Telephone Encounter - Sridevi Connors [...] 11:42 AM Received labs via fax from [facility]: --Sridevi Connors RN * Telephone Encounter - Bhupinder Huizar RN - 09/23/2024 2:23 PM EST Called and spoke to patient who was unaware that she needed lab order this week. Stated that she will be able to go to [facility] next week to get lab work completed. [...] Thank you! ALFONZO [place] documented in this encounterAdena Pike Medical Center03-07-2025 Telephone encounter Note* Telephone Encounter - ELMER Jaquez - 09/25/2024 12:02 PM EST Hgb mild improvement from 2024 continue iron supplements [facility] Work Phone: [phone]) [phone] Telephone encounter Note* Telephone Encounter - Sridevi Connors RN - 09/25/2024 11:42 AM EST Images from the original note were not included. 09/25/2024 11:42 AM Received labs via fax from [facility]: --Sridevi Connors RN [facility]03-06-2025 Evaluation note* Diagnosis Onset Date Resolution Status Admit Date Diabetes chronic September 24 1:02pm High triglycerides chronic September 24, 2024 1:02pm Hypertension chronic September 24, 2 025 1:02pm Hypothyroidism chronic September 24, 2024 1:02pm Neuropathy chronic September 24 1:02pm Obesity chronic September 24 1:02pm Asthma acute October 30 12:32pm Hypoxemia acute October 30 12:32pm Obstructive sleep apnea acute A pril 2024 12:32pm Acute cystitis without hematuria acu te January 11, 2025 12:38am Adverse drug reaction acute [place] 2024 12:38am Constipation acute January 11 025 12:38am History of COVID-19 acute January 11, 2025 12:38am Hyperglycemia due to type 2 diabetes mellitus acute January 11 12:38am Leukocytosis acute January 11 12:38am Morbid obesity with BMI of 45.0-49.9, adult acute January 11, 2025 12:38am [facility] Work Phone: 1(123) 526-828803-05-2025 Telephone encounter Note* Telephone Encounter - Bhupinder Huizar RN - 09/23/2024 2:23 PM EST Called and spoke to patient who was unaware that she needed lab order this week. Stated that she will be able to go to [facility] next week to get lab work completed. Reminder in place to follow up with labs next week sometime [facility]03-05-2025 Telephone encounter Note* Telephone Encounter - Luz Maria Escudero - 09/23/2024 1:59 PM EST Patient returning call. She is requesting a call back. [facility]03-05-2025 Telephone encounter Note* Telephone Encounter - Jaziel Christy RN - 09/23/2024 12:30 PM EST Called patient to follow up on labs locally, upon chart review a repeat CBC was ordered to be done locally. No answer, LVM with call back number Awaiting pt call [facility]03-03-2025 Telephone encounter Note* Telephone Encounter - Supriya Stone RN - 09/21/2024 8:12 AM EST ----- Message from ALFONZO Epps sent at 08/27/2024 3:25 PM EST ----- Pt was seen in clinic 08/27/2024 - needs to have lab work locally on 09/21 or 09/22/2024 Local lab slip provided. Please ensure we received results. Thank you! ALFONZO [place] [facility]02-14-2025 Evaluation note* Diagnosis Onset Date Resolution Status [...] sleep apnea acute A pril 2024 12:32pm [facility] Work Phone: [phone]) 108-166602-13-2025 Nurse Surgical operation note* Boubacar Herrera RN [...] - ambulatory - accompanied by her friends (fire truck driver). [facility]02-13-2025 Nurse Note* Boubacar Herrera RN - 09/03/2024 [...] - ambulatory - accompanied by her friends (fire truck driver). documented in this encounterAdena Pike Medical Center02-13-2025 History and physical note* Velasquez Berry MD - 09/03/2024 1:00 PM EST ENDOSCOPIC PREPROCEDURE HISTORY AND PHYSICAL HISTORY OF PRESENT ILLNESS: Leroy Montejo is a 58 y.o. female seen in the preoprocedure area at [facility]. The indication for endoscopic evaluation includes: [...] x 2 DILATION AND CURETTAGE LAP CHOLECYSTECTOMY [facility] MEDICATIONS: Current Outpatient Medications Medication Instructions [...] I, or a Nurse Practitioner or Physician's Surgical Garment Inspector had a Towr-iw-Cbma Encounter with them. Based upon those findings, [...] flaring, ABDOMEN: Abdomen soft, nontender ASSESSMENT: Leroy Montejo is a 58 y.o. female is ready for the planned procedure. ASA Class: ASA 3 - Patient with moderate systemic disease with functional limitations PLAN: Will plan to proceed with using Monitored Anesthesia Care. Velasquez Berry MD, MS Microfabrication Engineer Managersupervisor steno pool Division of Gastroenterology, Hepatology, and Nutrition [facility] Work Phone: [phone]) 445-648502-13-2025 History and physical note* Velasquez Berry MD - 09/03/2024 1:00 PM EST ENDOSCOPIC PREPROCEDURE HISTORY AND PHYSICAL HISTORY OF PRESENT ILLNESS: Leroy Montejo is a 58 y.o. female seen in the preoprocedure area at [facility]. The indication for endoscopic evaluation includes: [...] x 2 DILATION AND CURETTAGE LAP CHOLECYSTECTOMY [facility] MEDICATIONS: Current Outpatient Medications Medication Instructions [...] I, or a Nurse Practitioner or Physician's Surgical Garment Inspector had a Qoex-ut-Kvgk Encounter with them. Based upon those findings, [...] flaring, ABDOMEN: Abdomen soft, nontender ASSESSMENT: Leroy Montejo is a 58 y.o. female is ready for the planned procedure. ASA Class: ASA 3 - Patient with moderate systemic disease with functional limitations PLAN: Will plan to proceed with using Monitored Anesthesia Care. Velasquez Berry MD, MS Microfabrication Engineer Managersupervisor steno pool Division of Gastroenterology, Hepatology, and Nutrition [facility] documented in this encounterAdena Pike Medical Center02-13-2025 Miscellaneous Notes* Nursing Notes - Sylvie Rosenberg RN - 09/03/2024 1:00 PM EST Blood glucose 371 in pre-op. Dr. Gupta aware and ordered 8 units insulin Humalog which was administered at 1245. Per whitney Perez for patient to go into her procedure at 1300 and have the blood glucose re-checked at 1345. documented in this encounterAdena Pike Medical Center02-13-2025 Nurse Note* Nursing Notes - Sylvie Rosenberg RN - 09/03/2024 1:00 PM EST Blood glucose 371 in pre-op. Dr. Gupta aware and ordered 8 units insulin Humalog which was administered at 1245. Per whitney Perez for patient to go into her procedure at 1300 and have the blood glucose re-checked at 1345. [facility] Note. MICRO - Microbiology PROCEDURE: Affirm [...] Locations *1: This test was performed at: [facility], [address] [place] [address], [facility] , [facility]02-06-2025 History of Present illness Narrative* Scott Berrios MD, MPH - 08/27/2024 3:00 PM EST HISTORY OF PRESENT ILLNESS: Ms. Leroy Montejo is a 58 y.o. female with history [...] retrieved. Clip (MR conditional) was placed. Clip fractionating still operator: yuback. - An endoclip was found in the stomach. Removal was successful. - Two gastric polyps (0.9-1.1 cm in the gastric antrum). Resected and retrieved. Clips (MR conditional) were placed. Clip fractionating still operator: [employer]. - 1.5cm post mucosectomy scar in the gastric body. Clips (MR conditional) were placed. Clip fractionating still operator: [employer]. - A hypoechoic irregular mass was [...] Labs and scans completed on 08/14/24 Leroy Montejo is present today for a follow up [...] I, or a Nurse Practitioner or Physician's Surgical Garment Inspector had a Jbki-cq-Auch Encounter with them. Based upon those findings, [...] x 2 DILATION AND CURETTAGE LAP CHOLECYSTECTOMY [facility] family history includes Breast Cancer (age [...] the patient. IMPRESSION & PLAN: Ms. Leroy Montejo is a 58 y.o. female with a [...] with the discharge instructions. documented in this encounterAdena Pike Medical Center02-06-2025 History of Present illness Narrative* Scott Berrios MD, MPH - 08/27/2024 3:00 PM EST HISTORY OF PRESENT ILLNESS: Ms. Leroy Montejo is a 58 y.o. female with history [...] retrieved. Clip (MR conditional) was placed. Clip fractionating still operator: [employer]. - An endoclip was found in the stomach. Removal was successful. - Two gastric polyps (0.9-1.1 cm in the gastric antrum). Resected and retrieved. Clips (MR conditional) were placed. Clip fractionating still operator: [employer]. - 1.5cm post mucosectomy scar in the gastric body. Clips (MR conditional) were placed. Clip fractionating still operator: [employer]. - A hypoechoic irregular mass was [...] Labs and scans completed on 08/14/24 Leroy Montejo is present today for a follow up [...] I, or a Nurse Practitioner or Physician's Surgical Garment Inspector had a Zfvd-my-Ffrf Encounter with them. Based upon those findings, [...] x 2 DILATION AND CURETTAGE LAP CHOLECYSTECTOMY [facility] family history includes Breast Cancer (age [...] the patient. IMPRESSION & PLAN: Ms. Leroy Montejo is a 58 y.o. female with a [...] All medical record entries made by the Gennaibdeanna were at my direction and personally dictated [...] mg every other day. documented in this encounterAdena Pike Medical Center02-06-2025 History of Present illness Narrative* Scott Berrios MD, MPH - 08/27/2024 3:00 PM EST HISTORY OF PRESENT ILLNESS: Ms. Leroy Montejo is a 58 y.o. female with history [...] retrieved. Clip (MR conditional) was placed. Clip fractionating still operator: [employer]uback. - An endoclip was found in the stomach. Removal was successful. - Two gastric polyps (0.9-1.1 cm in the gastric antrum). Resected and retrieved. Clips (MR conditional) were placed. Clip fractionating still operator: [employer]ack. - 1.5cm post mucosectomy scar in the gastric body. Clips (MR conditional) were placed. Clip fractionating still operator: [employer]uback. - A hypoechoic irregular mass was identified [...] Labs and scans completed on 08/14/24 Leroy Montejo is present today for a follow up [...] I, or a Nurse Practitioner or Physician's Surgical Garment Inspector had a Emty-ru-Lqbm Encounter with them. Based upon those findings, [...] x 2 DILATION AND CURETTAGE LAP CHOLECYSTECTOMY [facility] family history includes Breast Cancer (age [...] the patient. IMPRESSION & PLAN: Ms. Leroy Montejo is a 58 y.o. female with a [...] add MMA next time. Documented by Edward Her, Dr. Berrios on [...] mg every other day. documented in this encounterAdena Pike Medical Center02-06-2025 Instructions* Patient Instructions* Supriya Stone RN - 08/27/2024 3:00 PM EST Return to clinic: RTC in [address] Berrios with labs and scans 1 week prior RN to please request colonoscopy report form 07/29/24 from [facility] RN to please print out the CT [...] survey regarding your care today at [facility]. We would appreciate if you could complete this short questionnaire as your feedback will help us improve future care of you, and others at our facility +++For labs, please note that if it is a walk-in lab, the lab appt will not show up on [facility]. In that case please keep a reminder in your calendar to get a lab draw on the same day of scans+++ Thank you for choosing [facility] for your cancer care. FMLA/Disability forms: Please [...] you have questions or concerns, please call [phone]. documented in this encounterAdena Pike Medical Center02-06-2025 Instructions* Patient Instructions* Supriya Stone RN - 08/27/2024 3:00 PM EST Return to clinic: RTC in [address] Berrios with labs and scans 1 week prior RN to please request colonoscopy report form 07/29/24 from [facility] RN to please print out the CT [...] survey regarding your care today at [facility]. We would appreciate if you could complete this short questionnaire as your feedback will help us improve future care of you, and others at our facility +++For labs, please note that if it is a walk-in lab, the lab appt will not show up on [facility]. In that case please keep a reminder in your calendar to get a lab draw on the same day of scans+++ Thank you for choosing [facility] for your cancer care. FMLA/Disability forms: Please [...] you have questions or concerns, please call [phone]. documented in this encounterAdena [facility]25 Instructions* Patient Instructions* Supriya Stone RN - 08/27/2024 3:00 PM EST Return to clinic: RTC in [address] Berrios with labs and scans 1 week prior RN to please request colonoscopy report form 07/29/24 from [facility] RN to please print out the CT [...] survey regarding your care today at [facility]. We would appreciate if you could complete this short questionnaire as your feedback will help us improve future care of you, and others at our facility +++For labs, please note that if it is a walk-in lab, the lab appt will not show up on mychart. In that case please keep a reminder in your calendar to get a lab draw on the same day of scans+++ Thank you for choosing [facility] for your cancer care. FMLA/Disability forms: Please [...] you have questions or concerns, please call [phone]. documented in this [facility]25 Miscellaneous Notes* Addendum Note - Scott Berrios MD, MPH - 08/27/2024 3:00 PM ESTAddended by: SCOTT BERRIOS on: 08/28/2024 08:29 AM Modules accepted: Orders documented in this encounterOSNorwalk [facility]02-06-2025 Miscellaneous Notes* Addendum Note - Scott Berrios MD, MPH - 08/27/2024 3:00 PM ESTAddended by: SCOTT BERRIOS on: 08/28/2024 08:29 AM Modules accepted: Orders * Addendum Note - Scott Berrios MD, MPH - 08/27/2024 3:00 PM ESTAddended by: SCOTT BERRIOS on: 09/04/2024 12:21 PM Modules accepted: Orders documented in this encounterOSNorwalk [facility]02-06-2025 Note* Addendum Note - Scott Berrios MD, MPH - 08/27/2024 3:00 PM ESTAddended by: SCOTT BERRIOS on: 08/28/2024 08:29 AM Modules accepted: Orders [facility]02-06-2025 Note* Addendum Note - Scott Berrios MD, MPH - 08/27/2024 3:00 PM ESTAddended by: SCOTT BERRIOS on: 08/28/2024 08:29 AM Modules accepted: Orders [facility]02-06-2025 Note* Addendum Note - Scott Berrios MD, MPH - 08/27/2024 3:00 PM ESTAddended by: SCOTT BERRIOS on: 09/04/2024 12:21 PM Modules accepted: Orders [facility]01-10-[facility] Telephone encounter Note* Telephone Encounter - Sridevi [...] Again, patient verbalizes understanding. --Sridevi Connors RN [facility]01-10-2025 Miscellaneous Notes* Telephone Encounter - Sridevi [...] Connors RN * Telephone Encounter - David Page - 07/31/2024 9:07 AM EST Pt is rescheduled for CT on 08/14 due to it aligning better for transportation. She also asked if Dr. Berrios could send her paper work on why she eis unable to work at this time. Stated they talked about this at her last appt. Please advise. documented in this encounterOS[facility] Telephone encounter Note* Telephone Encounter - David Drake - 07/31/2024 9:07 AM EST Pt is rescheduled for CT on 08/14 due to it aligning better for transportation. She also asked if Dr. Berrios could send her paper work on why she eis unable to work at this time. Stated they talked about this at her last appt. Please advise. [facility]01-09-[facility]25 History of Present illness Narrative* Scott Berrios MD, MPH - 07/30/2024 2:00 PM EST HISTORY OF PRESENT ILLNESS: Ms. Leroy Montejo is a 58 y.o. female with history [...] retrieved. Clip (MR conditional) was placed. Clip fractionating still operator: [employer]. - An endoclip was found in the stomach. Removal was successful. - Two gastric polyps (0.9-1.1 cm in the gastric antrum). Resected and retrieved. Clips (MR conditional) were placed. Clip fractionating still operator: [employer]. - 1.5cm post mucosectomy scar in the gastric body. Clips (MR conditional) were placed. Clip fractionating still operator: [employer]. - A hypoechoic irregular mass was [...] Ki 67 is unremarkable. Today, Ms. Leroy Montejo reports doing okay overall. No further GI [...] x 2 DILATION AND CURETTAGE LAP CHOLECYSTECTOMY [facility] family history includes Breast Cancer (age [...] the patient. IMPRESSION & PLAN: Ms. Leroy Montejo is a 58 y.o. female with a [...] options for each of this categories. Leroy Montejo has evidence of a well differentiated gastric [...] with the discharge instructions. documented in this encounterOSU [facility]01-[facility] History of Present illness Narrative* Scott Berrios MD, MPH - 07/30/2024 2:00 PM EST HISTORY OF PRESENT ILLNESS: Ms. Leroy Montejo is a 58 y.o. female with history [...] retrieved. Clip (MR conditional) was placed. Clip fractionating still operator: [employer]. - An endoclip was found in the stomach. Removal was successful. - Two gastric polyps (0.9-1.1 cm in the gastric antrum). Resected and retrieved. Clips (MR conditional) were placed. Clip fractionating still operator: [employer]. - 1.5cm post mucosectomy scar in the gastric body. Clips (MR conditional) were placed. Clip fractionating still operator: [employer]. - A hypoechoic irregular mass was identified [...] Ki 67 is unremarkable. Today, Ms. Leroy Montejo reports doing okay overall. No further GI [...] x 2 DILATION AND CURETTAGE LAP CHOLECYSTECTOMY [facility] family history includes Breast Cancer (age [...] the patient. IMPRESSION & PLAN: Ms. Leroy Montejo is a 58 y.o. female with a [...] options for each of this categories. Leroy Montejo has evidence of a well differentiated gastric [...] will check PTH level Documented by Edward Her, Dr. Berrios on 07/30/2024 at 2:54 PM. All medical [...] with the discharge instructions. documented in this encounterOSNorwalk [facility]01-09-2025 Instructions* Patient Instructions* Scott Berrios MD, MPH - 07/30/2024 2:00 PM EST Please do not take pantoprazole until Aug 14. You can resume on Aug 14 after your labs on Aug 13. Please request the EGD report from 04/04/24 from [facility]. Labs and CT A/P on Aug 13 RTC on Aug 27. No labs needed that day. RN to please print and mail my signed clinic note to the patient documented in this encounterOSU [facility]01-09-2025 Instructions* Patient Instructions* Scott Berrios MD, MPH - 07/30/2024 2:00 PM EST Please do not take pantoprazole until Aug 14. You can resume on Aug 14 after your labs on Aug 13. Please request the EGD report from 04/04/24 from [facility]. Labs and CT A/P on Aug 13 RTC on Aug 27. No labs needed that day. RN to please print and mail my signed clinic note to the patient documented in this encounterOSU [facility]01-09-2025 Miscellaneous Notes* Addendum Note - Soctt Berrios MD, MPH - 07/30/2024 2:00 PM ESTAddended by: SCOTT BERRIOS on: 07/31/2024 10:25 AM Modules accepted: Orders documented in this encounterOSU [facility]01-09-2025 Note* Addendum Note - Scott Berrios MD, MPH - 07/30/2024 2:00 PM ESTAddended by: SCOTT BERRIOS on: 07/31/2024 10:25 AM Modules accepted: Orders [facility]01-09-2025 History of Present illness Narrative* Gia Kilgore RN - 07/30/2024 11:47 AM EST I received handoff from Sandy. After review of the chart, there are no current complex case management needs at this time, Please re-consult if new needs arise. Gia ELMORE regional climate change analyst [facility] Pager: [phone] locomotive observer Line: [phone] documented in this encounterAdena Pike [facility] Center01-09-2025 History of Present illness Narrative* Karolina Piedra, PAPER BALER-CASTING ASSISTANT, DNP - 07/30/2024 11:45 AM EST Chief Complaint: Chief Complaint Patient presents with Follow-up History of Present Illness: Ms. Montejo is a 58 y.o. 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 She presents to [facility] clinic for follow up with Ga PET. Oncologic History: Leroy Montejo initially presented with c/o abdominal pain, GI bleed. Was admitted locally at [facility] in March 2024. 04/03/2024 CT abd: did not show anything acute; CTA chest: nl 04/04/2024 EGD OSH: gastric mass biopsy showed WD 2.5 cm gastric neuroendocrine tumor, Ki67 3% Interval History: Ms. Montejo is here today unaccompanied for her appointment. She complains of abdominal discomfort. Denies n/v. Eating ok. C/o occasional constipation. Had colonoscopy yesterday at [place] - she was not prepped enough so [...] of other tracer avid lesions. Assessment Ms. Montejo is a 58 y.o. female with a [...] office ifthey had further questions. Total time CASTING ASSISTANT spent prior to patient visit obtaining and reviewing records, and with patient reviewing HPI, pertinent medical, surgical and social history and conducting physical exam: 25 minutes. Karolina Piedra, DNP, PAPER BALER-CASTING ASSISTANT Nurse Practitioner, GI Surgical Oncology Attending Physician Note I interviewed and examined this patient with the LICENSED EMBALMER SUPERVISOR/fellow/resident. I reviewed the history and exam detailed [...] needed. Blas Rod MD documented in this encounterOSU [facility]01-08-2025 [facility]01-07-2025 Evaluation note* Diagnosis Onset Date Resolution Status Admit Date NAFLD (nonalcoholic fatty li giovanna disease) chronic July 28 10:12am Neuroendocrine tumor chronic William 2024 10:12am Gastroparesis acute July 12:24pm Neuroendocrine tumor chronic William miriam2024 12:24pm Asthma acute September 04, 2024 12:37pm Hypoxemia acute September 04, 2024 12:37pm Obstructive sleep apnea acute F ebruary 2024 12:37pm Diabetes chronic September 24 1:02pm High triglycerides chronic September 24, 2024 1:02pm Hypertension chronic September 24, 2 025 1:02pm Hypothyroidism chronic September 24, 2024 1:02pm Neuropathy chronic September 24 1:02pm Obesity chronic September 24 1:02pm [facility] Work Phone: 1(558) 899-439801-07-2025 Evaluation note* Diagnosis Onset Date Resolution Status Admit Date NAFLD (nonalcoholic fatty li giovanna disease) chronic July 28 10:12am Neuroendocrine tumor chronic William 2024 10:12am Gastroparesis acute July 12:24pm Neuroendocrine tumor chronic Wliliam 2024 12:24pm Asthma acute September 04, 2024 12:37pm Hypoxemia acute September 04, 2024 12:37pm Obstructive sleep apnea acute F ebary 2024 12:37pm Diabetes chronic September 24 1:02pm High triglycerides chronic September 24, 2024 1:02pm Hypertension chronic September 24, 2 025 1:02pm Hypothyroidism chronic September 24, 2024 1:02pm Neuropathy chronic September 24 1:02pm Obesity chronic September 24 1:02pm Asthma acute October 30 12:32pm Hypoxemia acute October 30 12:32pm Obstructive sleep apnea acute A pril 2024 12:32pm [facility] Work Phone: 1(171) 823-193512-03-2024 Nurse Surgical operation note* Kam Manjarrez RN - 06/23/2024 3:19 PM EST ok to DC. IV removed. DC teaching reviewed. Pt declines help getting dressed. Family present. [facility]20[facility] Nurse Note* Kam Manjarrez RN - 06/23/2024 3:19 PM EST ok to DC. IV removed. DC teaching reviewed. Pt declines help getting dressed. Family present. documented in this encounterOSU [facility]2024 History and physical note* Blas Merrill MD - 06/23/2024 1:00 PM EST ENDOSCOPIC PREPROCEDURE HISTORY AND PHYSICAL HISTORY OF PRESENT ILLNESS: Leroy Montejo is a 58 y.o. female seen in [...] x 2 DILATION AND CURETTAGE LAP CHOLECYSTECTOMY [facility] MEDICATIONS: Current Outpatient Medications Medication Instructions [...] flaring, ABDOMEN: Soft, nontender, nondistended ASSESSMENT: Leroy Montejo is a 58 y.o. female is ready for the planned procedure. ASA Class: ASA 3 - Patient with moderate systemic disease with functional limitations PLAN: Will plan to proceed with EUS using Monitored Anesthesia Care. Blas Merrill MD [facility]2024 History and physical note* Blas Merrill MD - 06/23/2024 1:00 PM EST ENDOSCOPIC PREPROCEDURE HISTORY AND PHYSICAL HISTORY OF PRESENT ILLNESS: Leroy Montejo is a 58 y.o. female seen in the preoprocedure area at [facility]. The indication for endoscopic evaluation includes: Neuroendocrine tumor. PAST MEDICAL HISTORY: Past Medical History: Diagnosis Date Anxiety Arthritis Cirrhosis of liver Diabetes mellitus GERD (gastroesophageal reflux disease) History of cancer Hyperlipidemia Hyperthyroidism Liver disease KODI (obstructive sleep apnea) Renal disease SURGICAL HISTORY: Past Surgical History: Procedure Laterality Date COLONOSCOPY DIAGNOSTIC 2017 x 2 DILATION AND CURETTAGE LAP CHOLECYSTECTOMY [facility] MEDICATIONS: Current Outpatient Medications Medication Instructions [...] flaring, ABDOMEN: Soft, nontender, nondistended ASSESSMENT: Leroy Montejo is a 58 y.o. female is ready for the planned procedure. ASA Class: ASA 3 - Patient with moderate systemic disease with functional limitations PLAN: Will plan to proceed with EUS using Monitored Anesthesia Care. Blas Merrill MD documented [facility] this [facility]11-18-2024 Evaluation note * Diagnosis Onset Date Resolution [...] 24, 2024 1:02pm Hypertension chronic September 24, 025 1:02pm Hypothyroidism chronic September 24, 2024 1:02pm Neuropathy chronic September 24 1:02pm Obesity September 24 1:02pm [facility] Work Phone: 1(343) 783-637111-01-2024 Note. MICRO - Microbiology PROCEDURE: Urine Culture [*1] SOURCE: Urine, Clean Catch BODY SITE: COLLECTED DATE/TIME: 05/21/2024 09:24 EDT RECEIVED DATE/TIME: 05/21/2024 16:13 EDT START DATE/TIME: 05/21/2024 16:14 EDT FREE TEXT SOURCE: FINAL REPORTS Final Report [] Verified Date/Time/Personnel: 05/22/2024 14:03 EDT 50,000 - 100,000 cfu/ml Mixed growth consistent with normal urogenital keiko. Performing Locations *1: This test was performed at: [facility], [address] [place] [address], [phone] , [facility] [id number] History and physical note* Karolina Piedra APRN-CASTING ASSISTANT, DNP - 05/07/2024 8:30 AM EDT Images from the original note were not included. Chief Complaint: Chief Complaint Patient presents with New Patient Clinical Care Team: Referring Provider: Joseluis Riggins MB* Primary Care Provider: Vero Ortez History of Present Illness: Ms. Montejo is a 58 y.o. female with a past medical history significant for DMII, Htn, HLD, obesity,depression, anxiety, use of supplemental O2 ATC - 2L/NC, KODI - she is not using her CPAP, only O2 (is supposed to use CPAP). She presents to [facility] clinic for surgical evaluation of 2.5 cm gastric neuroendocrine tumor, Ki67 3%. Oncologic History: Leroy Montejo initially presented with c/o abdominal pain, GI bleed. 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 Ms. Montejo is here today unaccompanied for her appointment. [...] x 2 DILATION AND CURETTAGE LAP CHOLECYSTECTOMY [facility] Allergies Allergen Reactions Bactrim [Sulfamethoxazole-Trimethoprim] Blisters [...] Resource Strain: Low Risk (02/08/2021) Received from [facility] Overall Financial Resource Strain (CARDIA) Difficulty of Paying Living Expenses: Not very hard Food Insecurity: No Food Insecurity (02/08/2021) Received from [facility] Hunger Vital Sign Worried About Running Out of Food in the Last Year: Never true Ran Out of Food in the Last Year: Never true Transportation Needs: No Transportation Needs (02/08/2021) Received from [facility] PRAPARE - Transportation Lack of Transportation (Medical): No Lack of Transportation (Non-Medical): No Physical Activity: Inactive (02/08/2021) Received from [facility] Exercise Vital Sign Days of Exercise per Week: 0 days Minutes of Exercise per Session: 0 min Stress: Not on file Social Connections: Socially Isolated (02/08/2021) Received from [facility] Social Connection and Isolation Panel [NHANES] Frequency of Communication with Friends and Family: Twice a week Frequency of Social Gatherings with Friends and Family: Twice a week Attends Buddhist Services: Never Active Member of Clubs or [...] chest OSH 04/03/2024: Pathology: 04/04/2024 Assessment Ms. Montejo is a 58 y.o. female with a history of gastric NET Ki67 3%. This was resected endoscopically OS on 04/04/2024. We will review for completeness [...] office with any further questions. Total time CASTING ASSISTANT spent prior to patient visit obtaining and reviewing records, and with patient reviewing HPI, pertinent medical, surgical and social history and conducting physical exam: 25 minutes. Karolina Piedra DNP, APRN-CNP Nurse Practitioner, GI Surgical Oncology [facility]10-[facility]24 History and physical note* ELMER Dumont DNP - 05/07/2024 8:30 AM EDT Images from the original note were not included. Chief Complaint: Chief Complaint Patient presents with New Patient Clinical Care Team: Referring Provider: Joseluis Riggins MB* Primary Care Provider: Vero Ortez History of Present Illness: Ms. Montejo is a 58 y.o. female with a past medical history significant for DMII, Htn, HLD, obesity,depression, anxiety, use of supplemental O2 ATC - 2L/NC, KODI - she is not using her CPAP, only O2 (is supposed to use CPAP). She presents to [facility] clinic for surgical evaluation of 2.5 cm gastric neuroendocrine tumor, Ki67 3%. Oncologic History: Leroy Montejo initially presented with c/o abdominal pain, GI bleed. 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 Ms. Montejo is here today unaccompanied for her appointment. [...] x 2 DILATION AND CURETTAGE LAP CHOLECYSTECTOMY [facility] Allergies Allergen Reactions Bactrim [Sulfamethoxazole-Trimethoprim] Blisters [...] Resource Strain: Low Risk (02/08/2021) Received from [facility] Overall Financial Resource Strain (CARDIA) Difficulty of Paying Living Expenses: Not very hard Food Insecurity: No Food Insecurity (02/08/2021) Received from [facility] Hunger Vital Sign Worried About Running Out of Food in the Last Year: Never true Ran Out of Food in the Last Year: Never true Transportation Needs: No Transportation Needs (02/08/2021) Received from [facility] PRAPARE - Transportation Lack of Transportation (Medical): No Lack of Transportation (Non-Medical): No Physical Activity: Inactive (02/08/2021) Received from [facility] Exercise Vital Sign Days of Exercise per Week: 0 days Minutes of Exercise per Session: 0 min Stress: Not on file Social Connections: Socially Isolated (02/08/2021) Received from [facility] Social Connection and Isolation Panel [NHANES] Frequency of Communication with Friends and Family: Twice a week Frequency of Social Gatherings with Friends and Family: Twice a week Attends Buddhist Services: Never Active Member of Clubs or [...] chest OSH 04/03/2024: Pathology: 04/04/2024 Assessment Ms. Montejo is a 58 y.o. female with a [...] office with any further questions. Total time CASTING ASSISTANT spent prior to patient visit obtaining and reviewing records, and with patient reviewing HPI, pertinent medical, surgical and social history and conducting physical exam: 25 minutes. Karolina Piedra DNP, KHADIJAH-ALEXEI Nurse Practitioner, GI Surgical Oncology documented in this [facility] History of Present illness Narrative* Blas Rod MD - 05/07/2024 8:30 AM EDT Surgical Oncology Attending Leroy Montejo is a 58yo F who recently presented [...] questions or concerns arise. documented in this [facility]10-17-2024 Instructions* Patient Instructions* Mari Kaba RN - 05/07/2024 8:30 AM EDT Survey Following your visit today, you may receive a survey via text or email asking about your experience. We are always looking for ways to improve your visit. Please share your feedback and comments withus- We would love to hear from you! Medicaid Managed Care Plan Transportation Scheduling Line ([phone]) Call Sandy, case resource manager, with questions or issues [phone] documented in this encounterAdena [facility]10-15-2024 Note* Exam Date Time Procedure Performing Provider Status 05/05/24 8:35 AM Echocardiogram, Adult - CV Auth (Verified) [facility] 09-17-2024 [facility]09-09-2024 Hospital Discharge instructions Patient Education 03/30/2024 03:45:06 [...] bent back when typing. You may use bvlz-wsr-coxfuse pain medicine to treat pain and inflammation, [...] Your whole arm becomes swollen or weak [phone] [employer]. [address] [place] [address], [place] [address]. All rights reserved. This information is not intended as a substitute for professional medical care. Always follow yourhealthcare professional's instructions. Follow Up Care 03/30/2024 02:46:19 With:VERO ORTEZ Address: [address] [place] [phone] When:2-4 days [facility] 09-09-2024 Note Discharge Instructions Thank you for allowing [facility] to assist you with your healthcare needs. The following is importantdischarge information regarding your hospital visit. Diagnosis from Today's Visit Wrist pain What to Do Next Instructions from Your Care Team No qualifying data available. Post Acute Orders No qualifying data available. You Need to Schedule the Following Appointments Follow Up with VERO ORTEZ When:Within 2-4 days Where:[address] [place] [phone] Allergies Bactrim Blisters codeine Swelling penicillin Rash [...] bent back when typing. You may use opmc-azv-norweqh pain medicine to treat pain and inflammation, [...] Your whole arm becomes swollen or weak [phone] [employer] [address] [place] [address]. All rights reserved. This information is not intended as a substitute for professional medical care. Always follow yourhealthcare professional's instructions. Additional Information VACCINATE! IT SAVES LIVES! Members of the community who have not yet received the COVID-19 vaccine and would like to receive it can visit one of [facility] vaccine clinics. There are many vaccine clinic locations within the [facility]. For locations and available times, please visit [email or web address].[email or web address]/. It is important to note that some COVID mobile vaccine clinics are held outdoors and may be canceled in rainy or stormy conditions. To learn more about pediatric vaccinations (ages 5-11), we invite you to visit the [facility] webpage. [email or web address]/[email or web address] stions.htmlTo learn more about the COVID-19 vaccine, we invite you to visit the CDC website for a list of frequently asked questions. https://www.cdc.gov/coronavirus/2019-ncov/vaccines/faq.html [facility] Patient Portal Access Instructions: Stay connected with your healthcare team and access your personal medical information anytime with the [facility] Patient Portal. If you would like a full copy of your medical records please contact the [facility] Medical Records Department Saturday through Saturday between 8a.m. and 4:30p.m. Please follow the directions below to access the portal: 1.Access the email account you provided upon [facility] to the [facility].2.Look for an invitation email from [facility].3.Open the email and access the invitation link: Accept Invitation to [facility]4.Fill in the required hatch to create your account. Sign into www.Today Tix with your username and password that you [...] you will allow to register on the [facility] Patient Portal for access to your information. You can also access the [facility] Patient Portal on the IndiaCollegeSearch bong. Simply click on Health Records under HealthData and then click on the BigBarn logo. HOW TO SAFELY DISPOSE OF PRESCRIPTION [...] Call your local pharmacy or go to http://bit.ly/7O1Vq8l to find one close to you.3.Make use of household items: Use cat litter or old coffee grounds to dispose medications if other options arenot available. Mix your drugs with these household products, seal them in an airtight container andthrow it into the garbage. Call [facility]: [phone] to be sure your drugs can be [...] been reviewed and explained to me and IJAYSON TERESA J understand my current condition and have read and understand these discharge instructions. I have received a written copy of the plan/instructions. If I have questions, I am aware that I should contact my doctor. Patient/Cartography Supervisor Signature: Date/Time: Relationship to Patient: Witness Name/Signature: Date/Time: [facility]09-09-2024 Note ORIGINAL EXAMINATION: THREE XRAY VIEWS [...] Date: 03/30/2024 3:29:35 AM Ordering Provider: [facility] Note. MICRO - Microbiology PROCEDURE: Urine Culture [...] Locations *1: This test was performed at: [facility], [address] [place] [address], [address] , [facility] ([place])03-16-2024 Note ORIGINAL EXAMINATION: ONE SUPINE XRAY VIEW(S) [...] Date: 03/16/2024 9:06:05 AM Ordering Provider: [facility]08-17-2024 [facility]08-08-2024 Note. MICRO - Microbiology PROCEDURE: Urine Culture [O1 *1] SOURCE: Urine BODY SITE: COLLECTED DATE/TIME: 02/25/2024 09:25 EDT RECEIVED DATE/TIME: 02/25/2024 16:13 EDT START DATE/TIME: 02/25/2024 16:13 EDT FREE TEXT SOURCE: FINAL REPORTS Final Report [] Verified Date/Time/Personnel: 02/27/2024 08:58 EDT >100,000 cfu/ml Escherichia coli Refer to previous culture for susceptibility. [id number] >100,000 cfu/ml Escherichia coli #2 Refer to previous culture for susceptibility. [id number] PRELIMINARY REPORTS Preliminary Report [] Verified Date/Time/Personnel: 02/26/2024 12:09 EDT Culture results pending. SUSCEPTIBILITY RESULTS Escherichia coli Antibiotic SHAHEEN Dilut SHAHEEN Inter ID Panel Not Not Applicable Applicable Escherichia coli #2 Antibiotic SHAHEEN Dilut SHAHEEN Inter ID Panel Not Not Applicable Applicable Order Comments O1: Urine Culture Added by Discern Performing Locations *1: This test was performed at: [facility], [address] [place] [address], [address] , [facility] ([place])02-27-2024 Note. MICRO - Microbiology PROCEDURE: Urine Culture [...] Locations *1: This test was performed at: [facility], [address] [place] [address] [place], [address] , [facility] ([place]02-25-2024 Hospital Discharge instructions Patient Education 02/25/2024 14:12:06 [...] out oCatheter stops draining for 6 hours [id number] [employer]. [address] [place] [address]. All rights reserved. This information is not [...] Carry a medical ID card or a compact USB drive. Or wear a medical alert [...] keep having episodes of high blood sugar. [phone] [employer]. [address] [place] [address]. All rights reserved. This information is not intended as a substitute for professional medical care. Always follow yourhealthcare professional's instructions. Follow Up Care 02/25/2024 09:01:39 With:VERO ORTEZ Address: [address] [place] [phone] When:2-4 days [facility] 08-06-2024 Note Discharge Instructions Thank you for allowing [facility] to assist you with your healthcare needs. The following is importantdischarge information regarding your hospital visit. Diagnosis from Today's Visit Hyperglycemia UTI - Urinary tract infection What to Do Next Instructions from Your Care Team No qualifying data available. Post Acute Orders No qualifying data available. You Need to Schedule the Following Appointments Follow Up with VERO ORTEZ When:Within 2-4 days Where:[address] [place] [phone] Allergies Bactrim Blisters codeine Swelling penicillin Rash [...] out oCatheter stops draining for 6 hours [phone] [employer]. [address] [place] [address]. All rights reserved. This information is not [...] Carry a medical ID card or a compact USB drive. Or wear a medical alert [...] keep having episodes of high blood sugar. [phone] [employer]. [address] [place] [address], [place] [address]. All rights reserved. This information is not intended as a substitute for professional medical care. Always follow yourhealthcare professional's instructions. Additional Information VACCINATE! IT SAVES LIVES! Members of the community who have not yet received the COVID-19 vaccine and would like to receive it can visit one of [facility] vaccine clinics. There are many vaccine clinic locations within the [facility]. For locations and available times, please visit www.gettheshot.coronavirus.[place].gov/. It is important to note that some COVID mobile vaccine clinics are held outdoors and may be canceled in rainy or stormy conditions. To learn more about pediatric vaccinations (ages 5-11), we invite you to visit the [facility] webpage. https://www.Clippership Intls.org/pages/0540-Tbpva-Ssxpphcgbwq-Ostesemeum-Rwpzp-Lrw stions.htmlTo learn more about the COVID-19 vaccine, we invite you to visit the CDC website for a list of frequently asked questions. https://www.cdc.gov/coronavirus/2019-ncov/vaccines/faq.html [facility] Patient Portal Access Instructions: Stay connected with your healthcare team and access your personal medical information anytime with the [facility] Patient Portal. If you would like a full copy of your medical records please contact the [facility] Medical Records Department Saturday through Saturday between 8a.m. and 4:30p.m. Please follow the directions below to access the portal: 1.Access the email account you provided upon registration to the hospital.2.Look for an invitation email from [facility].3.Open the email and access the invitation link: Accept Invitation to [facility].Fill in the required hatch to create your account. Sign into www.Today Tix with your username and password that you [...] you will allow to register on the [facility] Patient Portal for access to your information. You can also access the [facility] Patient Portal on the Everywun. Simply click on Health Records under HealthData and then click on the [facility] logo. HOW TO SAFELY DISPOSE OF PRESCRIPTION [...] Call your local pharmacy or go to http://Barcheyacht.Clean Power Finance/8Y3Km3y to find one close to you.3.Make use of household items: Use cat litter or old coffee grounds to dispose medications if other options arenot available. Mix your drugs with these household products, seal them in an airtight container andthrow it into the garbage. Call [facility]: [phone] to be sure your drugs can be [...] aware that I should contact my doctor. Patient/Cartography Supervisor Signature: Date/Time: Relationship to Patient: Witness Name/Signature: Date/Time: [facility]08-06-2024 Note ORIGINAL EXAMINATION: CT OF THE [...] Date: 02/25/2024 12:00:15 PM Ordering Provider: [facility]06-27-2024 Note. MICRO - Microbiology PROCEDURE: Urine Culture [...] Locations *1: This test was performed at: [facility], [address] [place] [address], [facility] , [facility]08-19-2023 Evaluation + Plan note Future Scheduled Tests Radiology* US Abdomen Complete 08/19/23 [facility] 12-12-2023 History of Present illness Narrative* Melissa Cabrales, OD - 07/02/2023 10:30 AM EST 1. Dry eye syndrome of bilateral lacrimal glands Patient had good success with dissolvable plugs Instilled permanent Walford plugs (0.4mm RLL, 0.5mm LLL) 2. Punctate keratitis of right eye Continue gel nightly and artificial tears 2-3x daily 3. Type 2 diabetes mellitus without retinopathy (HCC) Monitor 4. Regular astigmatism of both eyes 5. Presbyopia Reprinted spec rx Follow-up in 8 months for Diabetic eye exam and dry eye follow-up Melissa Cabrales, MAANUEL July 02, 2023 10:30 AM documented in this encounterOhiohealth Doctors Hospital11-07-2023 Miscellaneous Notes* Telephone Encounter - Alison [...] vaginal bleeding. Pt reports she has a Svetlana. Saw CT MRI TECHNOLOGIST within last week. Se contacted CT MRI TECHNOLOGIST and they advised contacting PCP of sx's. [...] -has fatigue 11. : Has Svetlana, saw stagecraft teacher last week Protocols used: Abdominal Pain - [id number] documented in this encounterOhiohealth Doctors Hospital10-27-2023 Instructions* Patient Instructions* Merna Krueger APRN.CASTING ASSISTANT - 05/17/2023 11:34 AM EDT PATIENT PREOPERATIVE INSTRUCTIONS Rosamaria Caruso MD has scheduled you for your procedure at this surgery center: [facility]: [phone] -- [address] [facility] [address]. Please read below carefully for your personalized [...] 100,000 unit/mL suspension IF needed DEXCOM G7 LODGE SALES ASSOCIATE misc DEXCOM G7 SENSOR nelly phenazopyridine (PYRIDIUM) [...] Procedures: - YOU MUST HAVE A RESPONSIBLE CERTIFIED TOWER CLIMBER TAKE YOU HOME. A ACUTE CARE PHYSICIAN OR CHILD WELFARE SOCIAL WORKER CANNOT BE MADE A RESPONSIBLE CERTIFIED TOWER CLIMBER. - We recommend that a responsible person [...] Advance Directive, please fax a copy to [phone] or email to for it to be [...] day. Merna Krueger APRN.CNP documented in this encounterOhiohealth Doctors Hospital10-27-2023 History and physical note * Merna [...] obesity with BMI of 50.0-59.9, adult (HCC) Assessment: Body mass index is 50.07 kg/m . Type 2 diabetes mellitus without complication, with long-term current use of insulin (HCC) Assessment: IDDM and oral agent, has NOT been taking the Ozempic due to insurance coverage per pt, following OSH endo Hemoglobin A1C (%) Date Value 02/18/2023 10.8 04/17/2023 Jaziel Drake CNP, [facility] Assessment: hx, recent hospitalization 04/18/2023-04/20/2023 Below copied from [facility]: Chief Complaint: Abd Pain Informant: patient Narrative [...] Stable - Continue with home medications [facility]: Per HPI: LEROY MONTEJO, is a 57 F who presented to the emergency department at [facility] due to abdominal pain that [...] obesity aswell as sleep apnea and diastolic CHF/VFA-07-hnhf-old female presented to the hospital with abdominal [...] large neck Non-male patient STOP-Bang Score: 7 [id number] Score: Age: <65 Sex: female CHF history: Yes Hypertension history: Yes Stroke/TIA/thromboembolism history: No Vascular disease history: No Diabetes history: Yes [id number] Score: 4 ARISCAT Score: Age: 51-80 Preoperative [...] and consent discussed: yes. Patient / Responsible Libertarian agrees to proceed: yes Patient / Surrogate agrees to blood products: blood products not planned Discussed the possibility of lip / dental damage: yes REASON FOR VISIT: Leroy Montejo is a 57 year old female who [...] Morbid Obesity With Bmi of 50.0-59.9, Adult ([facility]) Occult Blood Positive Stool Irritability Essential Hypertension Chronic Diastolic Congestive Heart Failure (Hcc) Bilateral Leg Edema COVID-19 Immunization Status Overdue - Covid-19 Vaccine () Overdue since 03/22/2023 02/21/2022 Imm Admin: COVID-19 original vaccine, age 12+ yr, monovalent (PFIZER- BIONTECH - PURPLE TOP) 02/19/2021 Outside Immunization: Covid (Pfizer) 08/10/2020 Imm Admin: COVID-19 original vaccine, age 12+ yr, monovalent (PFIZER- BIONTECH - PURPLE TOP) Only the first 3 history entries have been loaded, but more history exists. CHIEF COMPLAINT: Pre-op exam HPI: Leroy Montejo is a 57 year old seen for [...] and peripheral neuropathy. Negative for: cerebral palsy, MARBLE INSTALLATION HELPER tumor, dementia, impaired sensorium, multiple sclerosis, Parkinson's disease, seizures, TIA and strokes. Respiratory: Positive for: obstructive sleep apnea and CPAP/BiPAP compliant. Negative for: asthma, COPD, pneumonia within 6 weeks, tobacco use and URI < 2 weeks. Cardiovascular: Positive for: CHF (on rx), hyperlipidemia and hypertension Negative for: anticoagulation therapy, arrhythmia, atrial fibrillation, CAD, chest pain, congenitalheart defect, DVT/PE, recent WI, murmur/valvular heart disease, PVD, open heart surgery and valve surgery. GI: Positive for: GERD and inflammatory bowel disease (hx colitis) Negative for: abdominal pain, dysphagia, hepatitis, irritable bowel syndrome, liver disease, nausea, pancreatitis, vomiting and ETOH >2 drinks/day. : Positive for: nephrolithiasis (remote hx), renal failure and urinary tract infection (recurrent). Patient's renal failure is chronic. Negative for: urinary incontinence. CT MRI TECHNOLOGIST: Negative for abnormal vaginal bleeding, abnormal vaginal [...] daily until gone. Taking Yes DEXCOM G7 LODGE SALES ASSOCIATE misc Taking Yes DEXCOM G7 SENSOR nelly [...] or any previous visit (from the past 37169 hour(s)). Prepared for Surgery: optimally prepared for [...] SIGNATURE: Merna Krueger APRN.CNP PATIENT NAME: Leroy Montejo DATE: May 17, 2023 TIME: 11:33 AM PAGER/CONTACT #: documented in this encounterOhiohealth Doctors Hospital10-17-2023 History of Present illness Narrative* Yessy White PA-C - 05/07/2023 1:13 PM EDT HISTORY AND PHYSICAL Leroy Montejo 1965 REFERRING PHYSICIAN: Papa Douglass MD CHIEF [...] 4 times daily until gone. DEXCOM G7 LODGE SALES ASSOCIATE misc DEXCOM G7 SENSOR nelly APPLY 1 [...] entered by the nurse and reviewed by me Nursing Notes: Saundra Qiu LPN 05/07/2023 1:15 [...] consents to surgery. I plan to use CapsoVisionly bowel preparation The patient has medical comorbidities [...] mail. Yessy White PA-C documented in this encounterOhiohealth Doctors Hospital10-17-2023 Nurse Note* Saundra Qiu LPN - [...] 2017 Saundra Qiu LPN documented in this encounterOhiohealth Doctors Hospital10-13-2023 History of Present illness Narrative* Papa Douglass MD - 05/03/2023 10:00 AM EDT Chief Complaint Patient presents with: Hospital F/U Immunizations: Flu vaccination HPI Leroy Montejo is a 57 year old female who presents here today for Hospital Discharge Follow up.. Pt was admitted to [facility] on 04/18/23 with c/o abdominal pain. Discharged [...] wondering if she needs to see a replanter, hospitalist said she had stage 1 renal failure, Endo Dr. Cervantes said CKD Stage 3. Blood sugars have been running 300 to 400. She did not restart her CPAP machine. Oxygen had improved before being discharged, was not d/c with any prescription Oxygen, was not needed. Below copied from [facility]: Chief Complaint: Abd Pain Informant: patient Narrative [...] Stable - Continue with home medications DVT: [facility] Course: Per HPI: LEROY MONTEJO, is a 57 F who presented to the emergency department at [facility] due to abdominal pain that [...] obesity aswell as sleep apnea and diastolic CHF/MWV-97-bpdw-old female presented to the hospital with abdominal [...] Prior to Visit Medication Sig DEXCOM G7 LODGE SALES ASSOCIATE misc DEXCOM G7 SENSOR nelly APPLY 1 [...] on 06/06/2028 Depression Assessment Completed Data reviewed [facility] reports from 04/18 to 04/20 ASSESSMENT/PLAN: 1. [...] - Continue current medications - Continue with Endo Dr. Cervantes 6. Stage 3 chronic kidney disease, unspecified whether stage 3a or 3b CKD (HCC) - ICD9: 585.3, ICD10: N18.30 Continue to monitor with labs Follows with Endo No need to see Railroad Brake Operator at this point 7. Encounter for screening [...] Past Histories independently gathered by the clinical support services specialist and the remaining scribed note accurately describes [...] May 03, 2023 9:48 AM. Cecilia Lopez Celestina documented in this encounterOhiohealth Doctors Hospital10-11-2023 Miscellaneous Notes* Telephone Encounter - Trena [...] times daily until gone. Authorizing Provider: MELA MURPHY Pharmacy Information Pharmacy Address Telephone [facility]/pharmacy #[id number] [address] [place] [address] Trena Narvaez RN * Telephone Encounter - Mela Murphy APRN.CNP - 05/01/2023 1:12 PM EDT Prescription [...] Saturday. Natalya Osman RN documented in this encounterOhiohealth Doctors Hospital09-30-2023 Discharge summary Author Sergo Bustillos [facility] April 20, 2023 10:09am Note Date/Time April 20, 2023 9:45am [facility] Medical Records Department [address] [place] [address] Instructions for Home/Discharge Instructions 04/20/23 0944 MR#: [id number] Acct: [id number] Name: LEROY MONTEJO Rep #:[id number] : 1965 57 From: Sergo brand [...] Attending Provider: Sergo Bustillos Primary Care Provider: aPpa Douglass Consulting Providers: Cecilia Villa Instructions Additional [...] sensor q 10 days (DME) Dexcom G7 Staking Engineer Misc See Rx Instructions .Route Qty: 1 [...] DO; Dr. Papa Douglass MD ~ Signed [facility] Work Phone: 1(536) 472-661409-29-2023 Progress note Author Sergo Bustillos [facility] April 19, 2023 12:43pm Note Date/Time April 19, 2023 12:43pm [facility] Medical Records Department [address] [place] [address] Progress Note - Hospitalist 04/19/23 1237 MR#: [id number] Acct: [id number] Name: LEROY MONTEJO Rep #:[id number] : 1965 57 From: Sergo brand MD PCP: Dr. Papa Douglass MD Status:AD M IN Location: [place] [address] Subjective Subjective Doing well, no issues overnight. [...] % (Auto) 59.7, Lymph % (Auto) 27.2, Caddo % (Auto) 6.4, Eos % (Auto) 3.8, [...] Physician: MD Evonne Papa Performed By: Jacobo Mello, NICKY Rhythm Strip Rhythm Strip: Sinus Rhythm Rate: [...] DVT: Lovenox Charges/Coding Visit Charges Inpatient E&M: 01993 Subs Hosp L2 04/19/23 1243 <Electronically signed by Sergo Bustillos MD> Cosigner Signature (if applicable): CC: ~ Signed [facility] Work Phone: 1(630) 475-787309-28-2023 Progress note Author Cecilia Villa [facility] April 18, 2023 6:05pm Note Date/Time April 18, 2023 4:35pm [facility] Medical Records Department [address] [place] [address] Progress Note - Hospitalist 04/18/23 1635 MR#: [id number] Acct: [id number] Name: LEROY MONTEJO Rep #:[id number] : 1965 57 From: Cecilia Villa DO PCP: Dr. Papa Douglass MD Status:AD M IN Location: [place] [address] Hospitalist Note ABG was obtained and I did calculate an AA gradient which was found to be 36.7. Age expected a gradient is 19. She has some other process besides obesity hypoventilation syndrome responsible for hypoxia. 04/18/23 1635 <Electronically signed by Cecilia Villa DO> Cosigner [...] monitor renal function closely. Echocardiogram is pending. 04/18/23 1805<Electronically signed by Cecilia Villa DO> Cosigner Signature (if applicable): cc: ~* Signed [facility] Work Phone: 1(226) 944-574309-28-2023 Discharge summary Author Candy Archuleta [facility] April 18, 2023 4:18pm Note Date/Time April 18, 2023 11:17am [facility] Medical Records Department [address] [place] [address] Emergency Department Summary 04/18/23 MR#: [id number] Acct: [id number] Name: LEROY MONTEJO Rep #:[id number] : 1965 57 From: Candy Griffith PCP: Dr. Papa Douglass MD Status:AD M IN Location: [place] [address] HPI History of Present Illness Chief Complaint: Abd [...] chronic UTIs as well as yeast infections. [facility] Medical History Anemia Arthritis Back pain Bloody [...] [Rx Last Taken Unknown] blood sugar diagnostic (The GlassboxTouch Verio test strips) #100 ea 02/18/23 [Rx Last Taken Unknown] blood-glucose meter,continuous (Dexcom G7 Staking Engineer) #1 ea 02/18/23 [Rx Last Taken Unknown] [...] 71.2 H Lymph % (Auto) 18.9 L Caddo % (Auto) 5.3 Eos % (Auto) 2.7 [...] Clarity Cloudy Urine pH 6.0 Ur Specific Raymond 1.015 Urine Protein 30 H Urine Glucose [...] Management Discussion w/another healthcare provider: Hospitalist and Director Cost Discharge Plan Triage Chief Complaint: Abd Pain ED Provider: Candy Archuleta Dx/Rx/DC Orders Clinical Impression: Hypoxia, Colitis, Leg edema, Hyperglycemia Primary Care Provider: Papa Douglass Disposition Disposition: Acute Care Hospital [facility] Discharge Date/Time: 04/18/23 16:16 What to do if you have Problems For any increased pain, shortness of breath, bleeding, nausea or vomiting, chest pain, or any unexpected problems, contact your Primary Care Provider. Call [facility] ([phone]) or report to the closest Emergency Room. Call 911 if necessary. 04/18/23 1618 <Electronically signed by Candy Archuleta DO> Cosigner Signature (if applicable): CC: Dr. Papa Douglass MD ~ Signed [facility] Work Phone: 1(252) 645-284309-28-2023 History and physical note Author Cecilia Villa [facility] April 18, 2023 4:10pm Note Date/Time April 18, 2023 4:05pm [facility] Medical Records Department [address] [place] [address] H&P Exam - Hospitalist 04/18/23 1521 MR#: [id number] Acct: [id number] Name: LEROY MONTEJO Rep #:[id number] : 1965 57 From: Cecilia Villa DO PCP: Dr. Papa Douglass MD Status:AD IN [facility] H[facility] - General General Date of Admission: 04/18/23 Date of Service: 04/18/23 Chief Complaint: abdominal pain HPI Narrative LEROY MONTEJO, is a 57 F who presented to the emergency department at [facility] due to abdominal pain that [...] and Dopplers of her legs with edema. [facility] Medical History Anemia Arthritis Back pain Bloody [...] [Rx Last Taken Unknown] blood sugar diagnostic (FirstCry.[employer] Verio test strips) #100 ea 02/18/23 [Rx Last Taken Unknown] blood-glucose meter,continuous (Dexcom G7 Staking Engineer) #1 ea 02/18/23 [Rx Last Taken Unknown] [...] Clarity Cloudy, Urine pH 6.0, Ur Specific Raymond 1.015, Urine Protein 30 H, Urine Glucose [...] 71.2 H, Lymph % (Auto) 18.9 L, Caddo % (Auto) 5.3, Eos % (Auto) 2.7, [...] emergency department Charges/Coding Visit Charges Inpatient E&M: 07322 Init Hosp L3 04/18/23 1610 <Electronically signed by Cecilia Villa DO> Cosigner Signature (if applicable): CC: Dr. Cecilia Villa DO; Dr. Papa Douglass MD~ Signed [facility] Work Phone: [phone]) 673-207308-15-2023 Instructions* Patient Instructions* Mari Jernigan DO - 03/05/2023 9:24 AM EDT Stocking Wear [...] allow to air dry. There are also fractionating still operator recommendations included with your stockings. Skin [...] palm of the gloved will help you antique repairer the stocking while putting it on. Be [...] are wearing the most effective size. Locations: [facility] Pharmacy- [phone] [employer]- [phone] www.UserEvents [employer]- [phone] www.[employer]- [phone] Located in [facility]- call local store and schedule a fitting. documented in this encounterOhiohealth Doctors Hospital08-15-2023 History of Present illness Narrative* JerniganMari johnson Colin, DO - 03/05/2023 8:24 AM EDT Images from the original note were not included. Heart, Vascular and Thoracic [place] DEPARTMENT OF VASCULAR SURGERY OUTPATIENT VISIT DATE [...] Grandfather Stroke Paternal Grandmother MEDICATIONS: DEXCOM G7 LODGE SALES ASSOCIATE misc DEXCOM G7 SENSOR nelly APPLY 1 [...] and Positive for rash PHYSICAL EXAM: VITALS: [facility] 09/27/2013 General: Alert, oriented, cooperative, healthy appearance Integumentary: Normal color, no rash, no lesions. HEENT: EOM, pupils equal, round and reactive. Cardiovascular: Pulse regular. Lungs: No chest deformities or chest wall tenderness. Abdomen: Not examined Extremities: Edema Neurological: AAOx3. Normal cognition and motor skills. Diagnostic tests reviewed for today's visit: Most recent labs Most recent imaging IMPRESSION: Ms. Montejo is a 57 year old female with bilateral lower extremity edema, venous insufficiency, secondary lymphedema . PLAN and RECOMMENDATIONS: Reviewed testing Recommend trial of compression, elevation and exercise May ultimately benefit from compression pumps and potentially lymphedema therapy Discussed importance of blood sugar control and proper foot care SIGNATURE: Mari Jernigan DO PATIENT NAME: Leroy Montejo DATE: March 05, 2023 TIME: 8:24 AM documented in this encounterOhiohealth Doctors Hospital08-14-2023 Miscellaneous Notes* Telephone Encounter - Natalya Osman RN - 03/04/2023 8:21 AM EDT Patient notified. Natalya Osman RN * Telephone Encounter - Mela Murphy APRN.CNP - 03/03/2023 1:05 PM EDT Please notify pt - The cephalexin she is taking should resolve her UTI. Mela Murphy APRN.CNP documented in this encounterOhiohealth Doctors Hospital08-11-2023 Miscellaneous Notes* Telephone Encounter - Mela Murphy APRN.CNP - 03/01/2023 5:52 PM EDT Cephalexin and pyridium prescribed. Pt notified. Mela Murphy APRN.CNP * Telephone Encounter - Dolores Badillo [...] Badillo RN * Telephone Encounter - Mela Murphy APRN.CNP - 03/01/2023 1:13 PM EDT I can send her an antibiotic. Please ask her if she can take Cipro or cephalexin and if either has been effective for UTI in the past. She has multiple allergies to antibiotics. Mela Murphy APRN.ALEXEI * Telephone Encounter - Natalya Osman RN - 03/01/2023 11:01 AM EDT Patient called to inquire about her urine results. Notified that culture will take 48 hours. Patient is miserable she said. Can you please review the UA. pH, Urine Date Value Ref Range Status 02/28/2023 5.5 5.0 - 8.0 Final Specific Raymond, Ur Date Value Ref Range Status 02/28/2023 [...] (A) 0-5 /HPF Final documented in this encounterOhiohealth Doctors Hospital08-10-2023 Miscellaneous Notes* Telephone Encounter - Dolores Badillo RN - 02/28/2023 12:56 PM EDT Patient notified. Dolores Badlilo RN * Telephone Encounter - Mela Murphy APRN.CNP - 02/28/2023 12:51 PM EDT Orders filed. Mela Murphy APRN.CNP * Telephone Encounter - Dolores Badillo RN - 02/28/2023 11:10 AM EDT Patient calling c/o urinary symptoms again. Recently treated for UTI last month at [facility]. Unsure if symptoms ever resolved completed. Took cephalexin x7 days on 01/23 for it. Asking for order to be placed for her to leave sample at lab. Urine Culture on 01-22-2023 URC Organism is too fastidious for routine susceptibility studies. Presumptive Lactobacillus sp. [place] Count >100,000 Normal [facility] Comment on above: Performed By: #### L500.2500, L100.0100, L501.9520 #### [facility] [address] [place], [address] Dolores Badillo RN documented in this encounterOhiohealth Doctors Hospital08-08-2023 Miscellaneous Notes* Telephone Encounter - Cecilia [...] pt. Wanda Ramesh LPN documented in this encounterOhiohealth Doctors Hospital07-02-2023 Discharge summary Author Pranav Ward [facility] January 20, 2023 10:57pm Note Date/Time January 20, 2023 6:44p m [facility] Medical Records Department [address] [place] [address] Emergency Department Summary 01/20/23 MR#: [id number] Acct: [id number] Name: LEROY MONTEJO Rep #:[id number] : 1965 57 From: Pranav Ward [...] lower extremities. She denies any known injury. PFS <DAVID Bravo - Last Filed: 01/20/23 21:00> [facility] Medical History Anemia Arthritis Back pain Bloody [...] subcutaneous pen 100 unit SQ DAILY dm 11/23/20 [History Last Taken Unknown] docusate sodium 100 [...] Negative for any eczema, hives, rash EXAM <Joel Mendoza LICENSED EMBALMER SUPERVISOR-C - Last Filed: 01/20/23 21:00> Physical Exam [...] <DAVID Bravo - Last Filed: 01/20/23 21:00> MDM Lab Data Labs: Laboratory Results - last 24 hr 01/20/23 01/20/23 18:25 18:56 WBC 10.7 RBC 4.89 Hgb 12.8 Hct 40.3 MCV 82.4 MCH 26.2 L MCHC 31.8 L RDW Std Deviation 43.8 RDW Coeff of [place] 14.7 H Plt Count 236 MPV 10.3 Immature Gran % (Auto) 0.600 Neut % (Auto) 64.6 Lymph % (Auto) 26.6 [place] % (Auto) 5.4 Eos % (Auto) 2.0 [...] Clarity Cloudy Urine pH 5.0 Ur Specific Raymond 1.020 Urine Protein 100 H Urine Glucose [...] Ward MD - Last Filed: 01/20/23 22:57> [facility] Narrative Medical decision making narrative: I [...] % (Auto) 64.6 Lymph % (Auto) 26.6 [place] % (Auto) 5.4 Eos % (Auto) 2.0 [...] Clarity Cloudy Urine pH 5.0 Ur Specific Raymond 1.020 Urine Protein 100 H Urine Glucose [...] branch block and left anterior fascicular block. MT interval is 124 ms. Cures duration 124 [...] Q12 Qty: 10 0RF Primary Care Provider: Ppaa Douglass Referrals: Papa Douglass MD [Primary Care Provider] - 1 Week if not improving Disposition Disposition: Home, Self Care What to do if you have Problems For any increased pain, shortness of breath, bleeding, nausea or vomiting, chestpain, or any unexpected problems, contact your Primary Care Provider. Call [facility] ([phone]) or report to the closest Emergency Room. Call 911 if necessary. 01/20/232256 <Electronically signed by Pranav Ward MD> Cosigner Signature (if applicable): 01/20/232099 <Electronically signed by Joel HERNANDEZ> CC: Dr. Papa Douglass MD ~ Signed [facility] Work Phone: 1(515) 799-340507-01-2023 History of Present illness Narrative* Papa Douglass MD - 01/19/2023 8:40 AM EDT Chief Complaint Patient presents with: Hand Pain: Bilateral hand pain, swelling, twitching, numbness to tips of finger HPI Leroy Montejo is a 57 year old female who [...] Past Histories independently gathered by the clinical support services specialist and the remaining scribed note accurately describes [...] AM. Cecilia Lopez Ma documented in this encounterOhiohealth Doctors Hospital06-30-2023 Miscellaneous Notes* Telephone Encounter - Cecilia [...] completed re: Disability Opers Forms Fax to [phone] [employer] Forms (notice of disability) Fax to [phone] [facility] Commissioners Non-FMLA Medical Certification Fax to [facility] at [phone] Please contact pt with any questions. Cecilia Lopez Ma documented in this encounterOhiohealth Doctors Hospital06-19-2023 Miscellaneous Notes* Telephone Encounter - Papa [...] month Protocols used: Diabetes - High Blood [id number]-TB * Telephone Encounter - Gabriella Carrasco LPN [...] to the high readings. documented in this encounterOhiohealth Doctors Hospital06-19-2023 Miscellaneous Notes* Telephone Encounter - Mari [...] so Louis Darby DPM documented in this encounterOhiohealth Doctors Hospital05-11-2023 History of Present illness Narrative* Melissa Cabrales, AMANUEL - 11/29/2022 2:20 PM EDT 1. Dry eye syndrome of bilateral lacrimal glands Urged importance of gel EVERY night Recommended Systane Complete 2-[address] of generic Recommended warm compresses every morning 2. Regular astigmatism of both eyes 3. Presbyopia Finalized spec rx 4. Type 2 diabetes mellitus without retinopathy (HCC) Follow-up in 3 months for dfe Melissa Cabrales, OD November 29, 2022 2:20 PM documented in this encounterOhiohealth Doctors Hospital05-11-2023 Instructions* Patient Instructions* Melissa Cabrales OD - 11/29/2022 2:17 PM EDT Use warm compresses every morning Use gel/ointment every night Use Systane Complete 2-3 times daily documented in this encounterOhiohealth Doctors Hospital05-02-2023 Miscellaneous Notes* Telephone Encounter - Feliciano Nunez [...] you. Wanda Ramesh LPN documented in this encounterOhiohealth Doctors Hospital04-26-2023 Miscellaneous Notes* Telephone Encounter - Karolina [...] Telephone Encounter - Coco Waters APRN.CNP - 11/14/2022 7:37 AM EDT Can you please call the patient and let her know she could increase her vitamin D to 3000 to 4000 international unit(s) daily. 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 Thank you. Coco Waters APRN.ALEXEI documented in this encounterOhiohealth Doctors Hospital04-24-2023 Miscellaneous Notes* Telephone Encounter - Alison oRgel RN - 11/12/2022 4:40 PM EDT Patient returned call and given provider's message below and patient verbalized understanding. Mc Rogel RN * Telephone Encounter - hSea Husain Ma - 11/12/2022 2:12 PM EDT [...] EDT Patient calling asking for referral to [facility] Dr Haile Cervantes, fax number [phone]. Patient would like to see Endocrinology for her thyroid and diabetes issues. Pending consult needs diagnosis. Please advise documented in this encounterOhiohealth Doctors Hospital04-18-2023 Miscellaneous Notes* Telephone Encounter - SHWETHA Fleming - 11/06/2022 2:37 PM EDT Telephoned the patient regarding missed appt. No message left, the mailbox is full. * Telephone Encounter - Kiley Randall RPh - 10/29/2022 11:15 AM EDT Three calls made to reach patient for today's pharmacy phone visit. All calls go straight to voicemail. Left voicemail for patient. Veena EscotoD, BCACP Primary Care Clinical Pharmacist documented in this encounterOhiohealth Doctors Hospital04-18-2023 Miscellaneous Notes* Telephone Encounter - Kiley Randall RPh - 11/06/2022 2:21 PM EDT Primary Care Pharmacy Rescheduling Outreach Call center, please contact patient and reschedule telephone visit for Diabetes management within ~4 week(s). (Visit length: 30 minutes) Thank you, Kiley Randall RPh 11/06/2022 2:21 PM documented in this encounterOhiohealth Doctors Hospital04-06-2023 Miscellaneous Notes* Telephone Encounter - Papa Douglass MD - 10/25/2022 4:16 PM EDT Noted Papa Douglass MD * Telephone Encounter - Jonah Naranjo MD - 10/25/2022 12:14 PM EDT DOC received call from [facility] ER today. Patient had called office today and said she was having facialswelling and maybe tongue swelling. Patient was instructed to go to the ER for eval. Er provider said patient presented with complaints of swelling (did not specify face or tongue), weakness and general pain. Patient franco been seen there 2-3 times for the [...] heri f/u with PCP/[facility]. documented in this encounterOhiohealth Doctors Hospital04-06-[address] Hernandez [facility] October 25, 2022 11:02am Note Date/Time October 25, 2022 9:15 am [facility] Medical Records Department [address] [place] [address] Emergency Department Summary 10/25/22 MR#: [id number] Acct: [id number] Name: LEROY MONTEJO Rep #:[id number] : 1965 56 From: Hiram Hernandez [...] breath. No trouble swallowing or breathing PFSH [facility] Medical History Anemia Arthritis Back pain Bloody [...] are normal. Patient was discussed with Dr. Nraanjo who is on-call for her primary care [...] % (Auto) 60.3 Lymph % (Auto) 30.7 [place] % (Auto) 5.2 Eos % (Auto) 2.1 [...] your Primary Care Provider. Call [facility] ([phone]) or report to the closest Emergency Room. Call 911 if necessary. 10/25/22 1102 <Electronically signed by Hiram Hernandez DO> Cosigner Signature (if applicable): CC: Dr. Papa Dougalss MD ~ Signed [facility] Work Phone: 1(855) 789-322304-04-2023 Miscellaneous Notes* Telephone Encounter - Feliciano Nunez APRN.CNP - 10/23/2022 11:03 AM EDT The following approved medication requests have been transmitted electronically. Requested Prescriptions Pending Prescriptions Disp Refills ferrous sulfate 325 mg (65 mg iron) tablet [Pharmacy Med Name: FERROUS SULFATE 325 MG TABLET] 30 tablet 5 Sig: TAKE 1 TABLET BY MOUTH EVERY DAY Feliciano Nunez APRN.CNP documented in this encounterOhiohealth Doctors Hospital03-20-2023 History of Present illness Narrative* Kiley Randall, [facility] - 10/08/2022 11:00 AM EDT Primary Care Pharmacy Visit CC (Reason for Consult): DM Goal: A1c<8% Last Collaborating Physician/PAPER BALER Visit: 10/01/22 Leroy Montejo is a 56 year old female presenting for follow up visit by telephone. Patient consents to pharmacy collaborative practice agreement. At last visit with pharmacy on 10/01/22 the following changes were made: Zpack and azithromycin were started for bronchitis. INTERIM HISTORY: Started feeling sick around 3/10 On antibiotics and Z pack, starting to [...] d/t cost ROS: Patient denies CP, SOB, FRANCO, blurred vision, dizziness or lightheadedness Patient denies nausea, vomiting, diarrhea, abdominal pain Patient denies symptoms of hypoglycemia (sweating, anxiety, palpitations, hunger, and tremor) Patient denies symptoms of hyperglycemia (polyuria, polydipsia, polyphagia) Patient denies potential medication adverse effects MEDICATIONS: Adherence: reports missed doses Pharmacy: [facility] on [address] Rx coverage: [employer] Affordability: brand name medications costly on current plan Diabetes supplies: [employer] System: pill box, she travels with [...] complication, with long-term current use of insulin ([facility]) - ICD9: 250.00, V58.67, ICD10: E11.9, [...] Ozempic 0.25 mg once weekly - Provided [employer] savings card phone number Continue Metformin ER [...] Randall PharmD, BCACP Primary Care Clinical Pharmacist The majority of the pharmacy visit (> 50%) was spent counseling and/or coordinating care for thepatient. [Telephonic] time was 20 minutes. documented in this encounterOhiohealth Doctors Hospital03-17-2023 Miscellaneous Notes* Telephone Encounter - Cecilia [...] Completed form needs to be faxed to [facility] at [phone] ATTN: Georgina Lopez. Pt states she has been approved for 12 weeks of FMLA to work on her health. She needs this paperwork completed KEYANNA and faxed back to her employer. Pt states her leave started 09/28/22. Route to [place] when form completed for processing documented in this encounterOhiohealth Doctors Hospital03-14-2023 Miscellaneous Notes* Telephone Encounter - Shea Husain Ma - 10/02/2022 10:00 AM EDT Pt called and notified of results, verbalized understanding. Shea Husain Ma * Telephone Encounter - Feliciano Nunez APRN.CNP - 10/02/2022 9:22 AM EDT Please let the patient know that her COVID and influenza testing was negative. Feliciano Nunez APRN.CNP documented in this encounterOhiohealth Doctors Hospital03-13-2023 Miscellaneous Notes* Telephone Encounter - Coco [...] 325 mg one daily. documented in this encounterOhiohealth Doctors Hospital03-13-2023 Instructions* Patient Instructions* Coco Waters APRN.CNP - 10/01/2022 9:22 AM EDT Start Zpack, take as directed. May use albuterol inhaler as needed. Continue supportive care at home. Stay well hydrated. Monitor sugars closely at home. Covid/flu test results should be back by tomorrow. Strep was negative. Follow up pending test results or sooner as needed. documented in this encounterOhiohealth Doctors Hospital03-13-2023 History of Present illness Narrative* Coco Waters APRN.CNP - 10/01/2022 9:00 AM EDT This is a 56 year old female who presents today with: Patient presents with: Acute Visit: cough HISTORY OF PRESENT ILLNESS: Leroy Montejo is a 56 year old female. Patient [...] INTRAUTERINE route one time only. Blood-Glucose Meter [facility] Use to check blood sugar three times [...] Continue supportive care at home, may use huak-lhv-kcszity cold and cough medications as needed - [...] complication, with long-term current use of insulin ([facility]) - ICD9: 250.00, V58.67, ICD10: E11.9, Z79.4 - Refill provided. - PEN NEEDLE, DIABETIC 31 GAUGE X 12/04 Follow-up pending test results or sooner as needed. Discussed treatment plan and patient voices understanding. Patient's questions answered appropriately. Medications and potential side effects were discussed and patient voices understanding. Coco Waters APRN.CASTING ASSISTANT This note was partially generated using [employer] recognition system. Note was reviewed for accuracy. There may be minor misspellings or grammar miscues with [employer] voice recognition. documented in this encounterOhiohealth Doctors Hospital03-09-2023 Instructions* Patient Instructions* Coco Waters APRN.CNP - 09/27/2022 10:08 AM EST Decrease synthroid to 200 mcg daily. Get repeat labs in 6-8 weeks to check thyroid. Schedule appointment with Endocrinology for follow up. Keep up coming appointment with Angeli to discuss diabetes May use mirlax 1-2 [...] sugar level consistently (80-130) documented in this encounterOhiohealth Doctors Hospital03-09-2023 History of Present illness Narrative* Coco Waters APRN.CNP - 09/27/2022 9:40 AM EST This is a 56 year old female who presents today with: No chief complaint on file. HISTORY OF PRESENT ILLNESS: Leroy Montejo is a 56 year old female. No [...] to 8.0. Refers that insurance only covers [id number] 6 months. Discussed seeing endocrinology out of the [facility], tried to get in with Dr. Cervantes at [facility], refers she had difficulty scheduling an appointment. Thyroid: Was taking 250 mcg of Synthroid daily, last month thyroid labs that were completed showed a low TSH. Instructed the patient to decrease Synthroid to 200 mcg daily, was not aware of changes recommended. Follows with endocrinology. HOSPITAL/ER FOLLOW UP: Reason for visit: Cough, congestion, generalized weakness Which facility: [facility] ER Date of visit: 09/21/2022 Diagnosis: [...] APRN.ALEXEI This note was partially generated using [employer] voice recognition system. Note was reviewed for accuracy. There may be minor misspellings or grammar miscues with [employer] voice recognition. documented in this encounterOhiohealth Doctors Hospital03-06-2023 Miscellaneous Notes* Telephone Encounter - Shea Husain Ma - 09/24/2022 12:13 PM EST Pt scheduled for OV on 09/27/22. Shea Husain Ma * Telephone Encounter - Diamatne Cai LPN - 09/19/2022 6:33 PM EST [...] is still following with endocrinology? Coco Waters APRN.ALEXEI * Telephone Encounter - Haile Monk Ma - 09/19/2022 11:31 AM EST TC to patient - she states that per her insurance she was not able to get the rest of her labs completed until today - she will have completed prior to upcoming office visit [facility]. Patient states that she is currently taking [...] an appointment scheduled. Thank you. Coco Waters APRN.ALEXEI documented in this encounterOhiohealth Doctors Hospital03-06-2023 History of Present illness Narrative* Melissa Cabrales, OD - 09/24/2022 9:38 AM EST 1. Dry [...] 24, 2022 9:38 AM documented in this encounterOhiohealth Doctors Hospital03-03-[address] Hernandez [facility] September 21, 2022 6:13pm Note Date/Time September 21, 2022 3:18 pm [facility] Medical Records Department [address] [place] [id number] Emergency Department Summary 09/21/22 MR#: [id number] Acct: [id number] Name: LEROY MONTEJO Rep #:[id number] : 1965 56 From: Hiram Hernandez [...] rate of 65 bpm with bifascicular block. MT interval 126 ms, QRS duration 120 ms, [...] % (Auto) 58.1 Lymph % (Auto) 31.8 [place] % (Auto) 5.2 Eos % (Auto) 2.7 [...] Color Urine Clarity Urine pH Ur Specific Raymond Urine Protein Urine Glucose (UA) Urine Ketones [...] (Auto) Neut % (Auto) Lymph % (Auto) [place] % (Auto) Eos % (Auto) Baso % (Auto) Absolute Neuts (auto) Absolute Lymphs (auto) Nucleated RBC % Sodium Potassium Chloride Carbon Dioxide Anion Gap BUN Creatinine Estim Creat Clear Calc Est GFR (MDRD) Af Amer Est GFR (MDRD) Non-Af BUN/Creatinine Ratio Glucose Calcium Troponin I High Sens B-Natriuretic Peptide 41.3 Urine Color Yellow Urine Clarity Cloudy Urine pH 5.0 Ur Specific Raymond 1.020 Urine Protein 30 H Urine Glucose [...] your Primary Care Provider. Call [facility] ([phone]) or report to the closest Emergency Room. Call 911 if necessary. 09/21/22 5458 <Electronically signed by Hiram Hernandez DO> Cosigner Signature (if applicable): CC: Dr. Papa Douglass MD ~ Signed [facility] Work Phone: 1(387) 801-818203-03-2023 History of Present illness Narrative* Sabine Borrego APRN.ALEXEI - 09/21/2022 1:57 PM EST Patient came [...] with this care plan. documented in this encounterOhiohealth Doctors Hospital02-14-2023 Miscellaneous Notes* Telephone Encounter - Bia Block RN - 09/04/2022 1:09 PM EST Pharmacy has in stock. Left pt VM to make aware to pickle cutter before appointment and not to take at [...] for 09/13/22. [facility] [place] * Telephone Encounter - Dionne Turner MD - 09/04/2022 10:32 AM EST Please contact patient to schedule a graded challenge to nitrofurantoin. Try to schedule for 8 or 9on 09/13. 8:30 on Monday 09/11 is another option. Confirm preferred pharmacy with patient. Give patient's instructions on antihistamine avoidance. Instruct her to pickle cutter the prescription to bring to her appointment. [...] Patient calling inquiring if she needs to pickle cutter something at the pharmacy and bring with her to her appointment with Dr. Turner on 09/13 for testing. Please advise and call patient on her cell [phone]. Thank you documented in this encounterOhiohealth Doctors Hospital02-14-2023 Miscellaneous Notes* Telephone Encounter - Natalya Osman RN - 09/04/2022 8:34 AM EST Patient notified. No longer having difficulty emptying her bladder. Dysuria is also improving. Phone number for Dr. Turner's office provided to patient. Natalya Osman RN * Telephone Encounter - Mela Murphy APRN.CNP - 09/03/2022 9:00 PM EST Please notify pt - Second urine culture was positive for same e coli bacteria. Please obtain clinical update since receiving gentamycin and now taking doxycycline. She needs to schedule appointment with Dr Turner for graded medication challenge to nitrofurantoin. Mela Murphy APRN.ALEXEI documented in this encounterOhiohealth Doctors Hospital02-10-2023 Miscellaneous Notes* Telephone Encounter - Dolores Badillo RN - 08/31/2022 11:52 AM EST Patient notified. She is scheduled at infusion center today at 2pm. Dolores Badillo RN * Telephone Encounter - Zee Palacios LPN - 08/31/2022 11:15 AM EST Left message to call office * Telephone Encounter - Mela Murphy APRN.CNP - 08/31/2022 10:27 AM EST Doxycycline also ordered to be started tomorrow. Please notify pt. Mela Murphy APRN.CNP * Telephone Encounter - Dolores Badillo RN - 08/31/2022 9:45 AM EST Patient notified. Orders faxed to [facility] infusion center. Please file urine culture order. Dolores Badillo RN * Telephone Encounter - Zee Palacios LPN - 08/31/2022 8:39 AM EST Left message to call office. Patient needs to leave urine sample at lab for urine culture. Per provider due to antibiotic allergies, patient will need Gentamycin 500 mg IV administered. [facility] outpatient infusion center is able to administer te antibiotic today, and will contact patient to set up the a ppointment. Urine culture will need to be collected before receiving antibiotic. documented in this encounterOhiohealth Doctors Hospital02-09-2023 Instructions* Patient Instructions* Dionne Turner MD [...] for predicting delayed reactions. documented in this encounterOhiohealth Doctors Hospital02-09-2023 History of Present illness Narrative* Dionne Turner MD - 08/30/2022 2:01 PM EST This is a consultation requested by Mela Murphy APRN, CASTING ASSISTANT for an allergy and immunology evaluation. My final recommendations will be communicated back to the requesting healthcare provider(s) by wayof shared medical record or via U.S. mail. Leroy Montejo is a 56 year old female with [...] tolerated these medications without adverse reaction. In 2016, she developed a blistering rash on her [...] suffer from frequent sinopulmonary infections. ASTHMA: See [place] ECZEMA: The patient has no history of eczema. URTICARIA:The patient does not have a history of urticaria and/or angioedema. GERD: See [place] INSECT STING: The patient does not have [...] no. SOCIAL HISTORY: Employer And Job Title: [employer] ([employer]) Years Of Education Completed: Not specified Marital [...] No air conditioning Basement: No basement Sarina: [id number] carpeting Dust mite controls: Dust mite controls [...] tobramycin, Bactrim and nitrofurantoin. Discussed with Mela Murphy APRN, CNP in RADIO INTERFERENCE INVESTIGATOR. She will likely treat the patient's current [...] arise. Dionne Turner MD documented in this encounterOhiohealth Doctors Hospital02-09-2023 Nurse Note* Randi Recio RN - 08/30/2022 1:57 PM EST Patient here for consult regarding antibiotic allergy. Broke out in hives head to toe as an adult. Feels that she took a couple days. Has some sneezing and nasal congestion, suffers year round. Uses flonase as needed. documented in this encounterOhiohealth Doctors Hospital01-30-2023 Miscellaneous Notes* Telephone Encounter - Coco Waters APRN.CNP - 08/20/2022 11:34 AM EST The following approved medication requests have been transmitted electronically. Requested Prescriptions Pending Prescriptions Disp Refills NOVOLOG FLEXPEN U-100 INSULIN 100 unit/mL (3 mL) 7 Each 5 Sig: Use 44 units with full meal. Use 10 units with a snack. If exercising after meal, use 38-40 units with that meal. Coco Waters APRN.ALEXEI * Telephone Encounter - Natalya Garrido - 08/20/2022 9:40 AM EST Pharmacy verified in [facility] Patient has been identified by name and [...] advise. Natalya Will Pss documented in this encounterOhiohealth Doctors Hospital01-27-2023 Miscellaneous Notes* Telephone Encounter - Sue Garcia - 08/17/2022 9:01 AM EST Called PT LVM to call back and schedule consult to Allergy/Immunology. Sue PSS * Telephone Encounter - Beth Evans LPN [...] she has never been seen by an boom supervisor in the past. Please see pended order [...] voicemail. Unable to leave a message. Mailbox isfull. Natalya Osman RN * Telephone Encounter - Mela Murphy APRN.ALEXEI - 08/14/2022 7:42 AM EST Please call patient and obtain clinical update on her UTI symptoms. Urine culture results show E. coli which is resistant to many antibiotics. She has listed allergies to the antibiotics that are effective for this bacteria. She will need to see an boom supervisor to determine if her allergies are true allergies so that she can be treated appropriately in the future. A consult order has been pended. Mela Murphy APRN.ALEXEI documented in this encounterOhiohealth Doctors Hospital01-17-2023 Instructions* Patient Instructions* Mela Murphy APRN.ALEXEI - 08/07/2022 7:25 AM EST URINARY TRACT [...] especially fever, back pain, and vomiting. Copyright 6024-6534 [facility]. All rights reserved This information is provided by the [facility] and is not intended to replace the medical advice of your doctor or health care provider. Please consult your health care provider for advice about a specific medical condition. For additional written health information, please contact the [facility] at the [facility] or toll-free extension [phone]. This document was last reviewed on: 2001 index#[id number] documented in this encounterOhiohealth Doctors Hospital01-17-2023 History of Present illness Narrative* Mela Murphy APRN.CASTING ASSISTANT - 08/07/2022 6:58 AM EST Leroy Montejo is a 56 year old female who presents for problem visit UTI symptoms for 2-3 weeks. HPI: UTI symptoms x 2-3 weeks - bladder spasms, burning with urination, frequency with voiding in small amounts, blood flecks in urine. No fever or chills. 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 T2DM - FBS 200 this am. Was taking clindamycin 1-2 months ago for tooth infection. No vaginal itching or discharge. OB History T0 L0 SAB0 IAB0 Ectopic0 Multiple0 Live Births0 Flagger History LMP: 09/27/2013, IUD Age at Menarche: Age at First : Age at Menopause: Flagger History Comments: Sexual Activity: Never; No partner [...] of results. Follow- up as needed. Mela Murphy APRN.CNP Medical Decision Making: Problems: Low: Acute, uncomplicated illness or injury Data: Unique test(s) ordered: 2 Risk: Moderate: Drug management Medical Decision Making Level: 3 - Low documented in this encounterOhiohealth Doctors Hospital12-28-2022 Miscellaneous Notes* Telephone Encounter - Papa Douglass MD - 07/18/2022 2:31 PM EST Noted Papa Douglass MD * Telephone Encounter - Semaj Vega RN - 07/18/2022 2:17 PM EST [facility] received a referral from [employer] Waters [employer]p, and have called patient 3 times. The first time could not leave voice mail, the 2nd and 3rd time they did leave voicemail. They also left voicemail on brothers number. Have not heard back from patient, so they are going to toss the referral. documented in this encounterOhiohealth Doctors Hospital12-28-2022 Instructions* Patient Instructions* Marissa Fenton APRN.CNP - 07/18/2022 10:49 AM EST May take an extra dose of hydrochlorothiazide for the next three days documented in this encounterOhiohealth Doctors Hospital12-28-2022 History of Present illness Narrative* Marissa Fenton [...] which included preparing to see the patient, [id number] patient care, completing clinical documentation, obtaining and/or reviewing separately obtained history, performing a medically appropriate examination, counseling and educating the pat ient/family/caregiver, and ordering medications, tests, or procedures. documented in this encounterCleveland [id number] Miscellaneous Notes* Telephone Encounter - Cecilia Lopez Ma - 07/09/2022 12:54 PM EST Additional message left for pt to call back. Cecilia Lopez Ma * Telephone Encounter - Diamante Cai LPN - 07/04/2022 6:03 PM EST TC to pt. LM to call office, ask for triage nurse to get updates. Diamante Cai LPN * Telephone Encounter - Coco Waters APRN.CASTING ASSISTANT - 07/04/2022 6:00 PM EST Can you please call the patient and ask how she has been feeling? Has redness and swelling improvedon the face? Express care only gave the patient 7 days of antibiotics, if she is still having symptoms I will send in a couple days extra. Coco Waters APRN.ALEXEI * Telephone Encounter - Shea Husain Ma [...] IC CEPHALAXIN [facility] [place]. documented in this encounterOhiohealth Doctors Hospital12-08-2022 Instructions* Patient Instructions* Coco Waters APRN.CNP - 06/28/2022 10:04 AM EST Continue to take Keflex as prescribed. 2. If swelling and redness get worse go to ER. 3. May apply cool compresses to help with pain. 4. May continue with ibuprofen as needed. 5. If you would like to see dermatology, Jaime Le is local to [place]. 6. Follow up as needed. documented in this encounterOhiohealth Doctors Hospital12-08-2022 History of Present illness Narrative* Coco Waters APRN.ALEXEI - 06/28/2022 9:40 AM EST This is a 56 year old female who presents today with: Patient presents with: Acute Visit: sinus issues HISTORY OF PRESENT ILLNESS: Leroy Montejo is a 56 year old female. Patient presents with: Acute Visit: sinus issues Here in the office for sinus concerns. Seen in [facility] care on 06/26/22, concerns for erysipelas/Facial infection. Started on Keflex due to penicillin allergy. COVID/flu test was negative. Furs face is [employer] with swelling. Yesterday was first full day [...] APRN.CNP This note was partially generated using WeAre.Us voice recognition system. Note was reviewed for accuracy. There may be minor misspellings or grammar miscues with [employer] voice recognition. documented in this encounterOhiohealth Doctors Hospital12-06-2022 History of Present illness Narrative* Génesis Zhang PA-C - 06/26/2022 12:34 PM EST Images from the original note were not included. This note was created using [employer]. Subjective Leroy Montejo is a 56 year old female. HPI [...] agreeable. Génesis Zhang PA-C documented in this encounterOhiohealth Doctors Hospital12-01-2022 Instructions* Patient Instructions* Coco Waters APRN.CNP - 06/21/2022 8:35 AM EST Decrease synthroid to 250 mcg. 1 tablet 200 mcg and 1 tablet 50 mcg. Get repeat labs in 6 weeks to check thyroid Schedule appointment with endocrinology, Dr. Cervantes at [facility] Continue to take all diabetes medication as prescribed, start Ozempic 0.25 mg once weekly. Continue to eat low carb and monitor sugars at home. Follow up in 3 months or sooner pending test results. documented in this encounterOhiohealth Doctors Hospital12-01-2022 History of Present illness Narrative* Coco Waters APRN.CNP - 06/21/2022 8:00 AM EST This is a 56 year old female who presents today with: Patient presents with: Follow Up: DM and Labs HISTORY OF PRESENT ILLNESS: Leroy Montejo is a 56 year old female. Patient [...] costs. Saw nurse practitioner within endocrinology department (wstr) in February who referred her to endocrinology. [...] to see Dr. Cervantes in endocrinology at [facility]. - HGB A1C - COMP METABOLIC PANEL [...] APRN.ALEXEI This note was partially generated using [employer] voice recognition system. Note was reviewed for accuracy. There may be minor misspellings or grammar miscues with [employer] voice recognition. 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 documented in this encounterOhiohealth Doctors Hospital09-06-2022 History of Present illness Narrative* Melissa Cabrales, OD - 03/27/2022 10:48 AM EDT 1. [...] continue care with primary care doctor and/or wholesale manager to maintain optimum levels as they are important to avoid ocular complications. Encouraged patient to call the office immediately with any changes to vision or visual concerns. Advised to not wait until the next scheduled exam. Follow-up in 6 months for dry eye check Melissa Cabrales, OD March 27, 2022 10:48 AM documented in this encounterOhiohealth Doctors Hospital08-29-2022 Instructions* Patient Instructions* Coco Waters APRN.CNP [...] or sooner as needed. documented in this encounterOhiohealth Doctors Hospital08-29-2022 History of Present illness Narrative* Coco Waters APRN.CNP - 03/19/2022 11:40 AM EDT This is a 56 year old female who presents today with: Patient presents with: Follow Up: Lab follow up HISTORY OF PRESENT ILLNESS: Leroy Montejo is a 56 year old female. Patient presents with: Follow Up: Lab follow up Here in the office to discuss lab results. Needs medication refills. Seeing Endo for diabetes and hypothyroidism. Had appointment on 03/14/22, TSH was low at 0.067. Repeat labs from Endo are due in April. Reduced to 300 mcg of Synthroid daily. Just started Trulicity 0.75 mg, needs to pickle cutter medication from pharmacy. Fasting sugars 200-300. Refers [...] complication, with long-term current use of insulin ([facility]) - ICD9: 250.00, V58.67, ICD10: E11.9, [...] APRN.CNP This note was partially generated using WeAre.Us voice recognition system. Note was reviewed for accuracy. There may be minor misspellings or grammar miscues with [employer] voice recognition. documented in this encounterOhiohealth Doctors Hospital08-24-2022 Instructions* Patient Instructions* Gretchen Fox APRN.CNP [...] TRULICITY 0.75 once weekly documented in this encounterOhiohealth Doctors Hospital08-24-2022 History of Present illness Narrative* Gretchen Fox APRN.CNP - 03/14/2022 1:15 PM EDT OFFICE VISIT PROGRESS NOTE CC Leroy Montejo is a 56 year old female who presents today for blood sugar review, insulin dosing adjust. HPI PATIENT OF DR. HANSEN, ENDOCRINE Diagnosed with diabetes mellitus type II, ~ 2015 Last endocrine OV 09/22/2020 with LYNN [facility]ER[facility] Sts is doing 'much better' Had a [...] at 1-2 am will have snack like tomb maker helper salad, drinks water, and regular popor will [...] RECOMMEND CONSULT TO DM ED and ENDO RE EXAMINER Consult placed RECOMMEND FOLLOWING CHANGES TRESIBA Continue [...] A1C Gretchen Fox CNP documented in this encounterOhiohealth Doctors Hospital08-09-2022 History of Present illness Narrative* Melissa Cabrales, OD - 02/27/2022 4:17 PM EDT 1. Type 2 diabetes mellitus without retinopathy (HCC) Risk of diabetic changes and vision loss can be minimized by tight control of blood sugar, blood pressure, and cholesterol levels. Educated patient to continue care with primary care doctor and/or wholesale manager to maintain optimum levels as they are [...] 27, 2022 4:17 PM documented in this encounterOhiohealth Doctors Hospital08-09-2022 Instructions* Patient Instructions* Melissa Cabrales, OD - 02/27/2022 2:42 PM EDT Use Refresh relieva or Systane Complete 2-3 times daily Use Refresh or Systane gel before bedtime documented in this encounterOhiohealth Doctors Hospital08-01-2022 Miscellaneous Notes* Telephone Encounter - Brianda [...] yeast infections come back. documented in this encounterOhiohealth Doctors Hospital07-29-2022 Instructions* Patient Instructions* Bia Jacinto APRN.[facility] - 02/16/2022 12:49 PM EDT VAGINAL YEAST [...] for diabetes Get tested for HIV/AIDS Copyright 5066-6580 [facility]. All rights reserved. This information is provided by the [facility] and is not intended to replace the medical advice of your doctor or health care provider. Please consult your health care provider for advice about a specific medical condition. For additional written health information, please contact the [facility] at the [facility] or toll-free extension [phone]. This document was last reviewed on: 2004 index#[id number] documented in this encounterOhiohealth Doctors Hospital07-29-2022 History of Present illness Narrative* Bia Jacinto APRN.[facility] - 02/16/2022 12:33 PM EDT This note was created using NoteWriter. Subjective Leroy Montejo is a 56 year old female. 56 [...] history is provided by the patient. No medical interpreter was used. Rash This is a [...] Self swab X 1 Diflucan Bia Jacinto APRN.CASTING ASSISTANT documented in this encounterOhiohealth Doctors Hospital07-25-2022 Miscellaneous Notes* Telephone Encounter - Papa Douglass MD - 02/12/2022 3:34 PM EDT OK to refill as ordered Papa Douglass MD * Telephone Encounter - Shea Husain Ma - 02/12/2022 3:06 PM EDT Last Rx: 11/21/21 #63 mL 90 days, per med reconciliation. Shea Husain Ma * Telephone Encounter - Jocelyn Garrido - 02/12/2022 2:56 PM EDT Patient has [...] patient. Jocelyn Cai Pss documented in this encounterOhiohealth Doctors Hospital07-21-2022 History of Present illness Narrative* Papa Douglass MD - 02/08/2022 2:00 PM EDT Chief Complaint Patient presents with: F/U 3 Month HPI Leroy Montejo is a 56 year old female who [...] Past Histories independently gathered by the clinical support services specialist and the remaining scribed note accurately describes [...] Douglass MD. February 08, 2022 2:18 PM. Shea Husain Ma documented in this encounterOhiohealth Doctors Hospital04-25-2022 History of Present illness Narrative* Kiley Randall, [facility] - 11/13/2021 1:00 PM EDT Primary Care Pharmacy Visit REASON FOR CONSULT: DM and Medication Reconciliation GOALS: A1c < 8% CONSULTING PROVIDER: Dr. Douglass Date of Consult: 10/06/21 Leroy Montejo is a 55 year old female presenting [...] Hypoglycemia: denies ROS: Patient denies CP, SOB, FRANCO, blurred vision, dizziness or lightheadedness Patient denies nausea, vomiting, diarrhea, abdominal pain Patient denies symptoms of hypoglycemia (sweating, anxiety, palpitations, hunger, and tremor) Patient denies symptoms of hyperglycemia (polyuria, polydipsia, polyphagia) Patient denies potential medication adverse effects MEDICATIONS: Adherence: reports missed doses Pharmacy: [facility] on [address] Rx coverage: Aetna Affordability: no issues Diabetes supplies: [employer] System: pill box, she travels with [...] complication, with long-term current use of insulin ([facility]) - ICD9: 250.00, V58.67, ICD10: E11.9, [...] Randall PharmD, BCACP Primary Care Clinical Pharmacist [facility] The majority of the pharmacy visit (> 50%) was spent counseling and/or coordinating care for thepatient. [Face to Face] time was 22 minutes. documented in this encounterOhiohealth Doctors Hospital04-25-2022 Instructions* Patient Instructions* Kiley Randall RPh [...] 2 tablets twice daily documented in this encounterOhiohealth Doctors Hospital04-21-2022 History of Present illness Narrative* Papa Douglass MD - 11/09/2021 2:07 PM EDT Chief Complaint No chief complaint on file. HPI Leroy Montejo is a 55 year old female who [...] today Papa Douglass MD documented in this encounterOhiohealth Doctors Hospital03-28-2022 Instructions* Patient Instructions* Sasha Schroeder APRN.CNP - 10/16/2021 12:28 PM EDT Naprosyn one tablet twice a day for 2 weeks Tylenol (generic acetaminophen) 500 mg-2 tabs every 8 hrs. as needed pain Xrays were completed and interpreted by the radiologist as negative for acute bony abnormality. documented in this encounterOhiohealth Doctors Hospital03-28-2022 History of Present illness Narrative* Leroy Tobar RT(R) - 10/16/2021 11:30 AM EDT Radiology Service Progress Note PATIENT NAME: Leroy Montejo DATE OF SERVICE: October 16, 2021 TIME: [...] 16, 2021 11:27 AM documented in this encounterOhiohealth Doctors Hospital03-28-2022 History of Present illness Narrative* Sasha Schroeder APRN.CNP - 10/16/2021 11:17 AM EDT Subjective HPI HPI Leroy Montejo is a 55 year old female who [...] have confirmed and edited as necessary, the [facility] Review of Systems Constitutional: Negative for chills [...] Follow up with PCP as needed for intermodal customer service management - XR HAND GENERAL 3V PA/LAT/OBL [...] evaluation. Sasha Schroeder APRN.ALEXEI documented in this encounterOhiohealth Doctors Hospital03-28-2022 History of Present illness Narrative* Kiley Randall, [facility] - 10/16/2021 10:00 AM EDT Primary Care Pharmacy Visit REASON FOR CONSULT: DM and Medication Reconciliation GOALS: A1c < 8% CONSULTING PROVIDER: Dr. Douglass Date of Consult: 10/06/21 Leroy Montejo is a 55 year old female presenting [...] issues; states it worked well for her Ozempic - never started d/t cost Preventative Medications: [...] Hypoglycemia: denies ROS: Patient denies CP, SOB, FRANCO, blurred vision, dizziness or lightheadedness Patient denies nausea, vomiting, diarrhea, abdominal pain Patient denies symptoms of hypoglycemia (sweating, anxiety, palpitations, hunger, and tremor) Patient denies symptoms of hyperglycemia (polyuria, polydipsia, polyphagia) Patient denies potential medication adverse effects MEDICATIONS: Adherence: reports missed doses, only taking bolus insulin once daily Pharmacy: [facility] on [address] Rx coverage: Aetna Affordability: no issues Diabetes supplies: [employer] System: pill box, she travels with [...] 210 04/05/2021 The 10-year ASCVD risk score ([place]stkelly MUNIZ Jr., et al., 2013) is: 7.9% [...] complication, with long-term current use of insulin ([facility]) - ICD9: 250.00, V58.67, ICD10: E11.9, [...] Follow up: Patient is scheduled to see CASTING ASSISTANT on 01/13/22. Patient to follow up with PharmD on 11/13/21. Patient verbalized understanding of instructions. Kiley Randall PharmD, BCACP Primary Care Clinical Pharmacist [facility] The majority of the pharmacy visit (> 50%) was spent counseling and/or coordinating care for thepatient. [Face to Face] time was 27 minutes. documented in this encounterOhiohealth Doctors Hospital03-28-2022 Instructions* Patient Instructions* Kiley Randall RPh - 10/16/2021 10:00 AM EDT Start pioglitazone 15 mg once daily Change Novolog to 48 units 2 times daily before meals Change Tresiba to 110 units once daily Continue metformin, if able please increase to 2 tablets twice daily documented in this encounterOhiohealth Doctors Hospital03-24-2022 Miscellaneous Notes* Telephone Encounter - Alison [...] Telephone Encounter - Coco Waters APRN.CNP - 10/09/2021 12:43 PM EDT Can you [...] you. Coco Waters APRN.ALEXEI documented in this encounterOhiohealth Doctors Hospital03-24-2022 Miscellaneous Notes* Telephone Encounter - Alison Rogel RN - 10/12/2021 1:44 PM EDT Opened in error. Mc Rogel RN documented in this encounterOhiohealth Doctors HospitalDischarge summary Author Dr. Miguel Torres [facility] October 10, 2022 5:59am Note Date/Time October 10, 2022 5:1 4am [facility] Medical Records Department [address] [place] [address] Emergency Department Summary 10/10/22 MR#: [id number] Acct: [id number] Name: LEROY MONTEJO Rep #:[id number] 1 : 1965 56 From: Sid Rivera [...] has minor rhinorrhea, congestion, cough without dyspnea. [facility] Medical History Anemia Arthritis Back pain Bloody [...] Clarity Turbid Urine pH 6.5 Ur Specific Raymond 1.015 Urine Protein 100 H Urine Glucose [...] your Primary Care Provider. Call [facility] ([phone]) or report to the closest Emergency Room. Call 911 if necessary. 10/10/22 0559 <Electronically signed by Sid Rivera MD> Cosigner Signature (if applicable): CC: Dr. Papa Douglass MD ~ Signed [facility] Work Phone: Evaluation + Plan note Future Appointments Appointment Date:07/30/2023 09:00:00 AM Scheduled Provider: Location:[facility] Appointment Type:PC Nurse Lab Appointment Date:08/02/2023 01:30:00 PM Scheduled Provider:VERO ORTEZ Location:[facility] Appointment Type:PC OV Future Scheduled Tests Radiology* CT Thorax w/o Contrast 06/21/23 [facility] Evaluation + Plan note Future Appointments Appointment Date:08/02/2023 01:30:00 PM Scheduled Provider:VERO ORTEZ Location:[facility] Appointment Type:PC OV Appointment Date:08/13/2023 10:00:00 AM Scheduled Provider: Location:[facility] Appointment Type:CT Chest w/o Contrast Future Scheduled Tests Radiology* CT Thorax w/o Contrast 08/13/23 [facility] Evaluation + Plan note Future Appointments Appointment Date:06/30/2024 09:00:00 AM Scheduled Provider:VERO ORTEZ Location:[facility] Appointment Type:PC Wellness Annual Future Scheduled Tests Laboratory* Lipid Profile 01/14/24 * Lipid Profile 07/15/24 * Complete Metabolic Panel 01/14/24 * Complete Metabolic Panel 07/15/24 [facility] Evaluation + Plan note Future Appointments Appointment Date:03/16/2024 08:00:00 AM Scheduled Provider:KURT PINEDA Location:UROLOGY Appointment Type:URO LICENSED EMBALMER SUPERVISOR Appointment Date:05/25/2024 02:30:00 PM Scheduled Provider:VERO ORTEZ Location:[facility] Appointment Type:PC OV Appointment Date:06/30/2024 09:00:00 AM Scheduled Provider:VERO ORTEZ Location:[facility] Appointment Type:PC Wellness Annual Diagnostic Tests Pending * Urine Culture 02/25/24 Future Scheduled Tests Laboratory* Lipid Profile 01/14/24 * Lipid Profile 07/15/24 * Complete Metabolic Panel 01/14/24 * Complete Metabolic Panel 07/15/24 [facility] Evaluation + Plan note Future Appointments Appointment Date:03/02/2024 07:30:00 AM Scheduled Provider:VERO ORTEZ Location:[facility] Appointment Type:PC OV ED Follow Up Appointment Date:03/16/2024 08:00:00 AM Scheduled Provider:KURT [facility] Location:UROLOGY Appointment Type:URO LICENSED EMBALMER SUPERVISOR Appointment Date:05/25/2024 02:30:00 PM Scheduled Provider:VERO ORTEZ Location:[facility] Appointment Type:PC OV Appointment Date:06/30/2024 09:00:00 AM Scheduled Provider:VERO ORTEZ Location:[facility] Appointment Type:PC Wellness Annual Future Scheduled Tests Laboratory* Lipid Profile 01/14/24 * Lipid Profile 07/15/24 * Complete Metabolic Panel 01/14/24 * Complete Metabolic Panel 07/15/24 [facility] Evaluation + Plan note Future Appointments Appointment Date:03/16/2024 08:00:00 AM Scheduled Provider:KURT PINEDA Location:UROLOGY Appointment Type:URO LICENSED EMBALMER SUPERVISOR Appointment Date:05/25/2024 02:30:00 PM Scheduled Provider:VERO ORTEZ Location:[facility] Appointment Type:PC OV Appointment Date:06/30/2024 09:00:00 AM Scheduled Provider:VERO ORTEZ Location:[facility] Appointment Type:PC Wellness Annual Future Scheduled Tests Laboratory* Lipid Profile 01/14/24 * Lipid Profile 07/15/24 * Complete Metabolic Panel 01/14/24 * Complete Metabolic Panel 07/15/24 [facility] Evaluation + Plan note Future Appointments Appointment Date:03/17/2024 07:30:00 AM Scheduled Provider:JAE AYALA Location:[facility] Appointment Type:PC Acute Appointment Date:05/25/2024 02:30:00 PM Scheduled Provider:VERO ORTEZ Location:[facility] Appointment Type:PC OV Appointment Date:06/30/2024 09:00:00 AM Scheduled Provider:VERO ORTEZ Location:[facility] Appointment Type: Wellness Annual Future Scheduled Tests Laboratory* Urine Culture 03/16/24 * Lipid Profile 01/14/24 * Lipid Profile 07/15/24 * Complete Metabolic Panel 01/14/24 * Complete Metabolic Panel 07/15/24 [facility] Evaluation + Plan note Future Appointments Appointment Date:05/25/2024 02:30:00 PM Scheduled Provider:VERO ORTEZ Location:[facility] Appointment Type:PC OV Appointment Date:06/30/2024 09:00:00 AM Scheduled Provider:VERO ORTEZ Location:[facility] Appointment Type: Wellness Annual Future Scheduled Tests Laboratory* Lipid Profile 01/14/24 * Lipid Profile 07/15/24 * Complete Metabolic Panel 01/14/24 * Complete Metabolic Panel 07/15/24 [facility] Evaluation + Plan note Future Appointments Appointment Date:04/23/2024 09:20:00 AM Scheduled Provider:AMADOU CLINTON MD Location:UROLOGY Appointment Type:URO Off Proc Cysto 20 min Appointment Date:05/25/2024 02:30:00 PM Scheduled Provider:VERO ORTEZ Location:[facility] Appointment Type:PC OV Appointment Date:06/30/2024 09:00:00 AM Scheduled Provider:VERO ORTEZ Location:[facility] Appointment Type: Wellness Annual Future Scheduled Tests Laboratory* Lipid Profile 01/14/24 * Lipid Profile 07/15/24 * Complete Metabolic Panel 01/14/24 * Complete Metabolic Panel 07/15/24 Radiology* MA Mammo Screening Bilateral w/ Jorge Alberto 03/30/24 [facility] Evaluation + Plan note Future Appointments [...] Mammo Screening Bilateral w/ Jorge Alberto 04/21/24 [facility] Evaluation + Plan note Future Appointments [...] Mammo Screening Bilateral w/ Jorge Alberto 04/21/24 [facility] Evaluation + Plan note Future Appointments [...] Mammo Screening Bilateral w/ Jorge Alberto 04/21/24 [facility] Evaluation + Plan note Future Appointments [...] Mammo Screening Bilateral w/ Jorge Alberto 04/21/24 [facility] Evaluation + Plan note Future Appointments Appointment Date:05/25/2024 02:30:00 PM Scheduled Provider:VERO ORTEZ Location:[facility] Appointment Type:PC OV Appointment Date:06/30/2024 09:00:00 AM Scheduled Provider:VERO ORTEZ Location:[facility] Appointment Type:PC Wellness Annual Appointment Date:11/02/2024 01:30:00 PM Scheduled Provider:VERO ORTEZ Location:[facility] Appointment Type:PC OV Future Scheduled Tests Laboratory* Complete Metabolic Panel 01/14/24 Radiology* MA Mammo Screening Bilateral w/ Jorge Alberto 04/21/24 [facility] evaluation + Plan note Future Appointments Appointment Date:11/20/2024 01:30:00 PM Scheduled Provider:KURT PINEDA Location:UROLOGY Appointment Type:URO OV Future Scheduled Tests Laboratory* Urine Culture 09/02/24 * Complete Metabolic Panel 01/14/24 Radiology* MA Mammo Screening Bilateral w/ Jorge Alberto 04/21/24 * MA Mammo Screening Bilateral w/ Jorge Alberto 09/02/24 [facility] Ascendant Dxaluation + Plan note Future Appointments Appointment Date:11/20/2024 01:30:00 PM Scheduled Provider:KURT PINEDA Location:UROLOGY Appointment Type:URO OV Future Scheduled Tests Laboratory* Urine Culture 09/02/24 * Complete Metabolic Panel 01/14/24 Radiology* MA Mammo Screening Bilateral w/ Jorge Alberto 04/21/24 [facility] evaluation + Plan note Future Appointments Appointment Date:11/20/2024 01:30:00 PM Scheduled Provider:KURT PINEDA Location:UROLOGY Appointment Type:URO OV Appointment Date:12/02/2024 01:00:00 PM Scheduled Provider:VERO ORTEZ Location:[facility] Appointment Type:PC OV Appointment Date:02/02/2025 03:30:00 PM Scheduled Provider:VERO ORTEZ Location:[facility] Appointment Type:PC OV Future Scheduled Tests Laboratory* Urine Culture 09/02/24 * Complete Metabolic Panel 01/14/24 Radiology* MA Mammo Screening Bilateral w/ Jorge Alberto 04/21/24 [facility] evaluation + Plan note Future Appointments Appointment Date:02/02/2025 03:30:00 PM Scheduled Provider:VERO ORTEZ Location:[facility] Appointment Type:PC OV Future Scheduled Tests Laboratory* Urine Culture 09/02/24 * Complete Metabolic Panel 01/14/24 Radiology* MA Mammo Screening Bilateral w/ Jorge Alberto 04/21/24 [facility] Evaluation note* Diagnosis Onychomycosis Dermatophytosis of nail documented in this encounter [facility] note* Diagnosis Left hand pain- Primary Pain in limb documented in this encounter [facility] note* Diagnosis Type 2 diabetes mellitus without complication, with long-term current use of insulin (HCC)- Primary documented in this encounter [facility] note* Diagnosis Uncontrolled type 2 diabetes mellitus with hyperglycemia (HCC)- Primary documented in this encounter [facility] note* Diagnosis Type 2 diabetes mellitus without complication, with long-term current use of insulin ([facility]) documented in this encounter [facility] note* Diagnosis Uncontrolled type 2 diabetes mellitus with hyperglycemia (HCC)- Primary Hypothyroidism, unspecified type Anxiety with depression Mixed hyperlipidemia Essential hypertension Unspecified essential hypertension Anemia, unspecified type KODI (obstructive sleep apnea) Obstructive sleep apnea (adult) (pediatric) GERD without esophagitis Esophageal reflux documented in this encounter [facility] note* Diagnosis Onset Date Resolution Status Depression acute Hyperglycemia due to diabetes mellitus acute Lactic acidosis acute UTI (urinary tract infection) acute Hypothyroidism [facility] Work Phone: Evaluation note* Diagnosis Onset Date Resolution Status Depression acute Hyperglycemia due to diabetes mellitus acute Lactic acidosis acute Noncompliance with medication regimen acute UTI (urinary tract infection) acute Hypothyroidism [facility] Work Phone: Evaluation note* Diagnosis Type 2 diabetes mellitus without complication, with long-term current use of insulin ([facility]) documented in this encounter [facility] note* Diagnosis Pharyngitis, unspecified etiology- Primary Rash, skin Rash and other nonspecific skin eruption Vaginal itching Pruritus of genital organs documented in this encounter [facility] note* Diagnosis Type 2 diabetes mellitus without retinopathy (HCC)- Primary Type II or unspecified type diabetes mellitus without mention of complication, not stated as uncontrolled Regular astigmatism of both eyes Regular astigmatism Presbyopia Dry eye syndrome of bilateral lacrimal glands Tear film insufficiency, unspecified Punctate keratitis of right eye Punctate keratitis documented in this encounter [facility] note* Diagnosis Uncontrolled type 2 diabetes mellitus with hyperglycemia (HCC)- Primary Hypothyroidism, unspecified type Acquired hypothyroidism Unspecified hypothyroidism Type 2 diabetes mellitus without complication, with long-term current use of insulin ([facility]) [facility]* Diagnosis Type 2 diabetes mellitus without complication, with long-term current use of insulin (HCC)- Primary Essential hypertension Unspecified essential hypertension Hypothyroidism, unspecified type documented in this encounter [facility] note* Diagnosis Regular astigmatism of both eyes- Primary Regular astigmatism Presbyopia Dry eye syndrome of bilateral lacrimal glands Tear film insufficiency, unspecified Punctate keratitis of right eye Punctate keratitis Type 2 diabetes mellitus without retinopathy (HCC) Type II or unspecified type diabetes mellitus without mention of complication, not stated as uncontrolled documented in this encounter [facility] note* Diagnosis Onset Date Resolution Status Hyperglycemia due to diabetes mellitus resolved Lactic acidosis resolved UTI (urinary tract infection) resolved [facility] Work Phone: evaluation noteNo assessment information available [facility] Work Phone: Evaluation note* Diagnosis Type 2 diabetes mellitus without complication, with long-term current use of insulin ([facility])- Primary Hypothyroidism, unspecified type Anxiety with depression [facility]* Diagnosis Viral URI- Primary Acute upper respiratory infections of unspecified site Facial infection Other specified infectious and parasitic diseases [facility] Diagnosis Facial infection- Primary Other specified infectious and parasitic diseases Erysipelas documented in this encounter [facility] note* Diagnosis Bilateral leg edema- Primary Edema documented in this encounter [facility] note* Diagnosis Urinary tract infection with hematuria, site unspecified- Primary documented in this encounter [facility] note* Diagnosis Allergy to multiple antibiotics- Primary Other drug allergy [facility]* Diagnosis [id number] adverse effect of medication, initial encounter- Primary Allergy to multiple antibiotics Other drug allergy Nonallergic rhinitis Chronic rhinitis documented [facility]* Diagnosis Urinary tract infection with hematuria, site unspecified- Primary Allergy to multiple antibiotics Other drug allergy documented in this encounter [facility] note* Diagnosis SOB (shortness of breath)- Primary Shortness of breath Bilateral leg edema Edema documented [facility]* Diagnosis Dry eye syndrome of bilateral lacrimal glands- Primary Tear film insufficiency, unspecified Regular astigmatism of both eyes Regular astigmatism Presbyopia Type 2 diabetes mellitus without retinopathy (HCC) Type II or unspecified type diabetes mellitus without mention of complication, not stated as uncontrolled [facility] Diagnosis URI, acute- Primary Acute upper respiratory infections of unspecified site Type 2 diabetes mellitus without complication, with long-term current use of insulin (HCC) Hypothyroidism, unspecified type Iron deficiency anemia secondary to inadequate dietary iron intake Vitamin D deficiency Unspecified vitamin D deficiency documented [facility]* Diagnosis Bronchitis- Primary Bronchitis, not specified as acute or chronic Acute cough Sore throat Acute pharyngitis Iron deficiency anemia secondary to inadequate dietary iron intake Type 2 diabetes mellitus without complication, with long-term current use of insulin (HCC) [facility] Diagnosis Type 2 diabetes mellitus without complication, with long-term current use of insulin ([facility]) documented [facility]* Diagnosis Type 2 diabetes mellitus without complication, with long-term current use of insulin (HCC)- Primary [facility] Diagnosis Iron deficiency anemia secondary to inadequate dietary iron intake [facility] Diagnosis Type 2 diabetes mellitus without complication, with long-term current use of insulin (HCC)- Primary Hypothyroidism, unspecified type [facility] Diagnosis Bilateral foot pain- Primary Pain in limb documented [facility]* Diagnosis Bilateral leg edema Edema Type 2 diabetes mellitus without complication, with long-term current use of insulin (HCC) documented [facility]* Diagnosis Dry eye syndrome of bilateral lacrimal glands- Primary Tear film insufficiency, unspecified Regular astigmatism of both eyes Regular astigmatism Presbyopia Type 2 diabetes mellitus without retinopathy (HCC) Type II or unspecified type diabetes mellitus without mention of complication, not stated as uncontrolled [facility] Diagnosis Venous insufficiency- Primary Unspecified venous (peripheral) insufficiency [facility] Diagnosis Pain in both hands- Primary Type 2 diabetes mellitus without complication, with long-term current use of insulin (HCC) Hypothyroidism, unspecified type History of anemia Personal history of diseases of blood and blood-forming organs Mixed hyperlipidemia Essential hypertension Unspecified essential hypertension Uncontrolled type 2 diabetes mellitus with hyperglycemia (HCC) GERD without esophagitis Esophageal reflux documented [facility]* Diagnosis Dysuria- Primary documented [facility]* Diagnosis Venous (peripheral) insufficiency- Primary Unspecified venous (peripheral) insufficiency Secondary lymphedema Other lymphedema documented [facility]* Diagnosis Onset Date Resolution Status CKD (chronic kidney disease) chronic Diabetes chronic Hypothyroidism chronic Neuropathy chronic Obesity chronic CKD (chronic kidney disease) chronic Diabetes chronic Hypothyroidism chronic Obesity chronic Colitis acute Hyperglycemia acute Hypoxia acute Leg edema acute UTI (urinary tract infection) [facility] Work Phone: Evaluation note* Diagnosis Hospital discharge [...] leg edema Edema documented [facility] this encounter [facility]* Diagnosis History of colonic polyps- Primary Personal history of colonic polyps Colitis Other and unspecified noninfectious gastroenteritis and colitis Encounter for screening colonoscopy Special screening for malignant neoplasms, colon documented in this encounter [facility] note* Diagnosis Pre-operative examination- Primary Preoperative examination, unspecified Anemia, unspecified type Type 2 diabetes mellitus without complication, with long-term current use of insulin (HCC) Colitis Other and unspecified noninfectious gastroenteritis and colitis Essential hypertension Unspecified essential hypertension Mixed hyperlipidemia Hypothyroidism, unspecified type Chronic diastolic congestive heart failure (HCC) Chronic diastolic heart failure Bilateral leg edema Edema Morbid obesity with BMI of 50.0-59.9, adult ([facility]) Morbid obesity documented in this encounter [facility] note* Diagnosis Dry eye syndrome of bilateral lacrimal glands- Primary Tear film insufficiency, unspecified Punctate keratitis of right eye Punctate keratitis Type 2 diabetes mellitus without retinopathy (HCC) Type II or unspecified type diabetes mellitus without mention of complication, not stated as uncontrolled Regular astigmatism of both eyes Regular astigmatism Presbyopia [facility] Encounter for screening mammogram for breast cancer [facility] Diagnosis Left hand pain Pain in [...] (HCC) Morbid obesity [facility] Diagnosis 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 [facility] 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 [facility] Diagnosis 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 [facility] Diagnosis 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 [facility] Diagnosis Neuroendocrine neoplasm of stomach- Primary Neuroendocrine cancer Other malignant neoplasm without specification of site [facility] Diagnosis 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 [facility] Diagnosis Complex care coordination- Primary [facility] Neuroendocrine neoplasm of stomach- Primary Neuroendocrine cancer Other malignant neoplasm without specification of site [facility] Diagnosis Microcytic anemia- Primary Iron deficiency anemia, unspecified [facility] Diagnosis Microcytic anemia- Primary Iron deficiency anemia, unspecified Iron deficiency anemia, unspecified iron deficiency anemia type [facility] Diagnosis 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 [facility] Diagnosis Microcytic anemia- Primary Iron deficiency anemia, unspecified Iron deficiency anemia, unspecified iron deficiency anemia type Neuroendocrine cancer Other malignant neoplasm without specification of site [facility] Diagnosis Pre-operative examination- Primary Preoperative [...] for breast cancer [facility] Diagnosis Neuroendocrine neoplasm of stomach [facility] Diagnosis Neuroendocrine neoplasm of stomach [facility] Diagnosis Neuroendocrine neoplasm of stomach- Primary Neuroendocrine cancer Other malignant neoplasm without specification of site Hepatosplenomegaly Other chronic nonalcoholic liver disease Elevated transaminase level Nonspecific elevation of levels of transaminase or lactic acid dehydrogenase (LDH) [facility] Narrative No data available for this section [facility] Hospital Discharge instructions Additional Instructions [facility]: Hospital Discharge instructions Additional Instructions You have a hand contusion which is treated with rest, ice, Tylenol and ibuprofen. Call the now clinic for follow-up.[facility] Work Phone: Hospital Discharge instructions Additional Instructions Eat yogurt daily or take a probiotic to prevent antibiotic associated diarrhea since the azithromycin is still in your system for another 3 days or so.[facility] Work Phone: Hospital Discharge instructions No data available for this section [facility] Hospital Discharge instructions Additional Instructions Your exam and history indicate that your pain is most likely from neuropathy secondary to your diabetes. Take the prescribed medication as directed to help control symptoms. If you develop a fever noticed increased redness or swelling or have any further concerns please return to the ER for repeat evaluation.[facility] Work Phone: Progress note No data available for this section [facility] Reason for referral (narrative)* Diagnostic Procedure Only (Urgent) - Closed Specialty Diagnoses / Procedures Referred By Contac t Referred To Contact XR IMAGING Diagnoses Left hand pain Procedures XR HAND GENERAL 3V PA/LAT/OBL LEFT RADEX HAND MINIMUM 3 VIEWS Sasha Schroeder, SETH [address] [place] [address] Xr Imaging Referral ID Status Reason Start Date Expiration Date V isits Requested Visits Authorized [id number] Closed Auto-Generate d Referral 10/16/2021 11/15/[address] [facility] for referral (narrative)* Diagnostic Procedure Only (Routine) - Pending Review Specialty Diagnoses / Procedures Referred By Contac t Referred To Contact XR IMAGING Diagnoses Bilateral foot pain Procedures XR FOOT GENERAL 3V AP/LAT/OBL BILATERAL RADEX FOOT COMPLETE MINIMUM 3 VIEWS Louis Darby [address] [place] [address] Xr Imaging Referral ID Status Reason Start Date Expiration Date Visits Requested Visits Authorized [id number] Pending Review Auto-Generat ed Referral 11/16/2022 12/16/[address] [facility] for referral (narrative)* Diagnostic Procedure Only (Routine) - Pending Review Specialty Diagnoses / Procedures Referred By Contac t Referred To Contact BR IMAGING Diagnoses Encounter for screening mammogram for breast cancer Procedures AMY SCREENING SCREENING MAMMOGRAPHY BI 2-VIEW BREAST INC CAD Papa Douglass MD [address] [place] [address] [facility] [address] [place] [address] Referral ID Status Reason Start Date Expiration Date Visits Requested Visits Authorized [id number] Pending Review Auto-Generat ed Referral 12/18/2023 01/16/[address] [facility] for referral (narrative)* Diagnostic Procedure Only (Urgent) - Closed Specialty Diagnoses / Procedures Referred By Contac t Referred To Contact XR IMAGING Diagnoses Left hand pain Procedures XR HAND GENERAL 3V PA/LAT/OBL LEFT RADEX HAND MINIMUM 3 VIEWS Sasha Schroeder APRN.CASTING ASSISTANT [address] [place] [address] [place] [address] Referral ID Status Reason Start Date Expiration Date V isits Requested Visits Authorized [id number] Closed Auto-Generate d Referral 10/16/2021 11/15/[address] [facility] for referral (narrative)No reason for referral information availableWWayne Hospital Work Phone: [facility] [facility] Diagnostic Procedure Only (Urgent) - Closed Specialty Diagnoses / Procedures Referred By Contac t Referred To Contact XR IMAGING Diagnoses Hand injuries, right, initial encounter Procedures XR HAND GENERAL 3V PA/LAT/OBL RIGHT RADEX HAND MINIMUM 3 VIEWS Ravinder Cervantes APRN.CASTING ASSISTANT [address] [place] [address] [place] [address] Referral ID Status Reason Start Date Expiration Date V isits Requested Visits Authorized [id number] Closed Auto-Generate d Referral 06/15/2022 07/15/[address] [facility] for visit Narrative* Diagnostic Procedure Only (Urgent) - Closed Specialty Diagnoses / Procedures Referred By Contac t Referred To Contact XR IMAGING Diagnoses Left hand pain Procedures XR HAND GENERAL 3V PA/LAT/OBL LEFT RADEX HAND MINIMUM 3 VIEWS Sasha Schroeder APRN.CASTING ASSISTANT [address] [place] [id number] [place] [address] Referral ID Status Reason Start Date Expiration Date V isits Requested Visits Authorized [id number] Closed Auto-Generate d Referral 10/16/2021 11/15/[address] [facility] for visit Narrative* Endoscopy (Routine) - New Request Specialty Diagnoses / Procedures Referred By Sherita t Referred To Contact Diagnoses Neuroendocrine tumor Procedures INTERVENTIONAL UPPER ENDOSCOPY MT EGD TRANSORAL ENDOSCOPIC MUCOSAL RESECTION Blas Merrill MD [address] [facility] [address] [place] [address] Phone: tel: fax: Referral ID Status Reason Start Date Expiration Date V isits Requested Visits Authorized [id number] New Request 06/23/2024 07/18/2025 [facility] ([facility]ine) - Closed Specialty Diagnoses / Procedures Referred By Sherita mcguire Referred To Contact Diagnoses Neuroendocrine neoplasm of stomach Procedures CT ABDOMEN/PELVIS WITH AND WITHOUT CONTRAST CHG CT ABD&PLV W/O CNTRST /BTH FLWD CNTRST /BTH Thomas Montero, PAPER BALER-CASTING ASSISTANT [address] [place] [address] Phone: tel: fax: Referral ID Status Reason Start Date Expiration Date Visits Re quested Visits Authorized [id number] Closed 08/27/2024 09/21/2025 1 1 [facility] Advance Directives Documents on File Type Date Recorded Patient Cartography Supervisor Expl anation Advance Directive(s) 02/24/2018 8:23 AM Advance Directive(s) 02/07/2018 12:23 PM Documents on File Type Date Recorded Patient Cartography Supervisor Expl anation Advance Directive(s) 02/24/2018 8:23 AM Advance Directive(s) 02/07/2018 12:23 PM Advance Directive Response Recorded Date/ Time Advance Directives No March 20, 2016 7:50am Living Will No February 09, 2022 5:58pm Power of Plant Nursery Worker No February 09 5:58pm Advance Directive Response Recorded Date/ Time Advance Directives No March 20, 2016 7:50am Living Will No February 09, 2022 8:41pm Power of Plant Nursery Worker No February 09 8:41pm Advance Directive Response Recorded Date/ Time Advance Directives No March 20, 2016 6:50am Living Will No June 08 9:26pm Power of Plant Nursery Worker No June 08, 2022 9:26pm Advance Directive Response Recorded Date/ Time Advance Directives No March 20, 2016 6:50am Living Will No June 17, 2 022 1:03pm Power of Plant Nursery Worker No June 17, 2022 1:03pm Advance Directive Response Recorded Date/ Time Advance Directives No March 20, 2016 6:50am Living Will No August 12 3:33pm Power of Plant Nursery Worker No August 12, 2022 3:33pm Advance Directive Response Recorded Date/ Time Advance Directives No March 20, 2016 6:50am Living Will No September 21, 2022 2:19pm Power of Plant Nursery Worker No September 21 2:19pm Advance Directive Response Recorded Date/ Time Advance Directives No March 20, 2016 7:50am Living Will No October 10, 2022 5:09am Power of Plant Nursery Worker No October 10 5:09am Advance Directive Response Recorded Date/ Time Advance Directives No March 20, 2016 7:50am Living Will No October 25, 2022 9:20am Power of Plant Nursery Worker No October 25 9:20am Advance Directive Response Recorded Date/ Time Advance Directives No March 20, 2016 7:50am Living Will No January 07, 2023 1:17pm Power of Plant Nursery Worker No January 07 1:17pm Advance Directive Response Recorded Date/ Time Advance Directives No March 20, 2016 7:50am Living Will No January 20, 2023 5 :47pm Power of Plant Nursery Worker No January 20, 2023 5:47pm Advance Directive Response Recorded Date/ Time Advance Directives No March 20, 2016 7:50am Living Will No April 18, 2023 5:40pm Power of Plant Nursery Worker No March 5:40pm Advance Directive Response Recorded Date/ Time Living Will No March 04 12:42pm Power of Plant Nursery Worker No March 04, 2 024 12:42pm Living Will No April 08, 2024 11:01am Power of Plant Nursery Worker No March 11:01am Living Will No July 28 3:38pm Power of Plant Nursery Worker No July 28 025 3:38pm Living Will No September 30, 2024 1:34am Power of Plant Nursery Worker No September 30 1:34am Advance Directives No March 11:01am Advance Directive Response Recorded Date/ Time Living Will No April 08, 2024 11:01am Do you have a Healthcare Power of Plant Nursery Worker? No April 08, 2024 11:01am Living Will No July 28 3:38pm Do you have a Healthcare Power of Plant Nursery Worker? No July 28, 2024 3:38pm Living Will No September 30, 2024 1:34am Do you have a Healthcare Power of Plant Nursery Worker? No September 30, 2024 1:34am Advance Directives No March 11:01am Advance Directive Response Recorded Date/ Time Living Will No April 08, 2024 11:01am Do you have a Healthcare Power of Plant Nursery Worker? No April 08, 2024 11:01am Living Will No July 28 3:38pm Do you have a Healthcare Power of Plant Nursery Worker? No July 28, 2024 3:38pm Living Will No September 30, 2024 1:34am Do you have a Healthcare Power of Plant Nursery Worker? No September 30, 2024 1:34am Living Will No November 03, 2024 9:57pm Do you have a Healthcare Power of Plant Nursery Worker? No November 03, 2024 9:57pm Advance Directives No March 11:01am Advance Directive Response Recorded Date/ Time Living Will No April 08, 2024 11:01am Do you have a Healthcare Power of Plant Nursery Worker? No April 08, 2024 11:01am Living Will No September 30, 2024 1:34am Do you have a Healthcare Power of Plant Nursery Worker? No September 30, 2024 1:34am Living Will No November 03, 2024 9:57pm Do you have a Healthcare Power of Plant Nursery Worker? No November 03, 2024 9:57pm Advance Directives No March 11:01am Advance Directive Response Recorded Date/ Time Living Will No September 30, 2024 1:34am Do you have a Healthcare Power of Plant Nursery Worker? No September 30, 2024 1:34am Living Will No November 03, 2024 9:57pm Do you have a Healthcare Power of Plant Nursery Worker? No November 03, 2024 9:57pm Do you have a Healthcare Power of Plant Nursery Worker? No January 10, 2025 10:30pm Advance Directives No March 11:01am Reason for Referral Specialty Diagnoses / Procedures Referred By Contac t Referred To Contact Endocrinology Diagnoses Uncontrolled type 2 diabetes mellitus with hyperglycemia (HCC) Hypothyroidism, unspecified type Procedures CONSULT TO ENDOCRINOLOGY OFFICE/OUTPATIENT [facility] 60-74 MINUTES Papa Douglass MD [address] [place] [address] Referral ID Status Reason Start Date Expiration Date Visits Requested Visits Authorized [id number] Pending Review PCP Requested Referral 02/08/2022 02/08/2023 1 1 Specialty Diagnoses / Procedures Referred By Contac t Referred To Contact Diagnoses Uncontrolled type 2 diabetes mellitus with hyperglycemia (HCC) Procedures CONSULT TO DIABETES EDUCATION OFFICE/OUTPATIENT [facility] 60-74 MINUTES Gretchen Fox PAPER BALER.CASTING ASSISTANT [address] [place] [address] Referral ID Status Reason Start Date Expiration Date Visits Requested Visits Authorized [id number] Pending Review PCP Requested Referral 03/16/2022 03/16/2023 1 1 Specialty Diagnoses / Procedures Referred By Contac t Referred To Contact Allergy Diagnoses Allergy to multiple antibiotics Procedures CONSULT TO ALLERGY/IMMUNOLOGY OFFICE/OUTPATIENT [facility] 60-74 MINUTES Mela Murphy PAPER BALER.CASTING ASSISTANT [address] [place] [address] Referral ID Status Reason Start Date Expiration Date Visits Requested Visits Authorized [id number] Pending Review PCP Requested Referral 08/16/2022 08/14/2023 1 1 Specialty Diagnoses / Procedures Referred By Contac t Referred To Contact Endocrinology Diagnoses Type 2 diabetes mellitus without complication, with long-term current use of insulin (HCC) Hypothyroidism, unspecified type Procedures CONSULT TO ENDOCRINOLOGY OFFICE/OUTPATIENT [facility] 60-74 MINUTES Papa Douglass MD [address] [place] [address] Referral ID Status Reason Start Date Expiration Date Visits Requested Visits Authorized [id number] Pending Review PCP Requested Referral 11/12/2022 11/12/2023 1 1 Specialty Diagnoses / Procedures Referred By Contac t Referred To Contact Vascular Surgery Diagnoses Venous insufficiency Procedures CONSULT TO VASCULAR SURGERY OFFICE/OUTPATIENT [facility] 60-74 MINUTES Louis Darby [address] [place] [address] Referral ID Status Reason Start Date Expiration Date Visits Requested Visits Authorized [id number] Pending Review PCP Requested Referral 01/08/2023 04/08/2023 1 1 Specialty Diagnoses / Procedures Referred By Contac t Referred To Contact General Surgery Diagnoses Colitis Encounter for screening colonoscopy Procedures CONSULT TO GENERAL SURGERY OFFICE/OUTPATIENT [facility]DM 60-74 MINUTES Papa Douglass MD [address] [place] [address] Referral ID Status Reason Start Date Expiration Date Visits Requested Visits Authorized [id number] Pending Review PCP Requested Referral 05/02/2024 1 1 Specialty Diagnoses / Procedures Referred By Contac t Referred To Contact Diagnoses Neuroendocrine tumor Procedures UPPER EUS MT ESOPHAGOGASTRODUODENOSCOPY US SCOPE W/ADJ STRXRS Karolina Piedra APRN-CNP, DNP [address] [place] [id number] Referral ID Status Reason Start Date Expiration Date V isits Requested Visits Authorized [id number] New Request 05/07/2024 06/01/2025 1 1 Specialty Diagnoses / Procedures Referred By Contac t Referred To Contact Diagnoses Neuroendocrine tumor Procedures NUC PET NEUROENDOCRINE CHG PET IMAGING CT ATTENUATION SKULL BASE MID-THIGH Karolina Piedra APRN-CNP, DNP [address] [place] [address] Referral ID Status Reason Start Date Expiration Date V isits Requested Visits Authorized [id number] New Request 05/07/2024 06/01/2025 1 1 Specialty Diagnoses / Procedures Referred By Contac t Referred To Contact Clinical Pathology/Laboratory Medicine Diagnoses Neuroendocrine tumor Karolina Piedra APRN-CNP, DNP [address] [place] [address] Referral ID Status Reason Start Date Expiration Date V isits Requested Visits Authorized [id number] New Request 05/07/2024 06/01/2025 1 1 Specialty Diagnoses / Procedures Referred By Manuelac t Referred To Contact Diagnoses Neuroendocrine tumor Procedures INTERVENTIONAL UPPER ENDOSCOPY MT EGD TRANSORAL ENDOSCOPIC MUCOSAL RESECTION Blas Merrill MD [address] [facility] [address] [place] [address] Referral ID Status Reason Start Date Expiration Date V isits Requested Visits Authorized [id number] New Request 06/23/2024 07/18/2025 1 1 Specialty Diagnoses / Procedures Referred By Contac t Referred To Contact Diagnoses Neuroendocrine neoplasm of stomach Neuroendocrine cancer Procedures CT ABDOMEN/PELVIS WITH AND WITHOUT CONTRAST CHG CT ABD&PLV W/O CNTRST /BTH FLWD CNTRST /BTH Scott Berrios MD, MPH [address] [place] [address] Referral ID Status Reason Start Date Expiration Date V isits Requested Visits Authorized [id number] New Request 07/30/2024 08/24/2025 1 1 Specialty Diagnoses / Procedures Referred By Sherita t Referred To Contact Diagnoses Neuroendocrine tumor Procedures NUC PET HEAD TO THIGH Karolina Piedra, PAPER BALER-CASTING ASSISTANT, DNP [address] [place] [address] Referral ID Status Reason Start Date Expiration Date Visits Re quested Visits Authorized [id number] Closed 07/02/2024 07/27/2025 1 1 Chief Complaint [...] 08, 2024 12:54pm ABNORMAL LIVER FUNCTION June 16 024 11:46am NAFLD July 24, 2024 9: [...] 2024 12:37pm Obstructive sleep apnea September 04, 025 12:37pm Diabetes September 24, 2024 1:02 pm High triglycerides September 24, 2024 1:02 pm Hypertension September 24, 2024 1:02 pm Hypothyroidism September 24, 2024 1:02 pm Neuropathy September 24, 2024 1:02 pm Obesity September 24, 2024 1:02 pm Chief Complaint Admit Date ABNORMAL LIVER FUNCTION June 16 024 11:46am NAFLD July 24, 2024 9: [...] 2024 12:37pm Obstructive sleep apnea September 04, 025 12:37pm Diabetes September 24, 2024 1:02 [...] KODI November 12, 2024 11: 01am SINUS COMPLAINT/FRANCO/COUGH December 30, 2024 10:35am Reason for Visit [...] 30, 2024 12:32pm Chief Complaint Admit Date 4 M FU, NS 09/07September 24, 2024 1:02 pm daytime hypersomnia, 40 pound weight los s September 28, 2024 8:00pm FOOT PAIN September 30, 2024 12: 32am J45.909 - Unspecified asthma, uncomplica mary October 05, 2024 12:58pm J45.909 - Unspecified asthma, uncomplica mary October 05, 2024 1:07pm J45.909 - Unspecified asthma, uncomplica mary October 06, 2024 12:27pm J45.909 - Unspecified asthma, uncomplica mary October 14, 2024 11:14am Obstructive sleep apnea October 23, 2024 8:00pm 8 WK FU October 30, 2024 12: 32pm HYPERGLYCEMIA November 03, 2024 9:0 0pm KODI November 12, 2024 11: 01am SINUS COMPLAINT/FRANCO/COUGH December 30, 2024 10:35am UTI HYPERGLYCEMIA January 11, 2025 12:3 8am Reason for Visit Admit Date Diabetes September 24, 2024 1:02 pm High triglycerides September 24, 2024 1:02 pm Hypertension September 24, 2024 1:02 pm Hypothyroidism September 24, 2024 1:02 pm Neuropathy September 24, 2024 1:02 pm Obesity September 24, 2024 1:02 pm Asthma October 30, 2024 12: 32pm Hypoxemia October 30, 2024 12: 32pm Obstructive sleep apnea October 30, 2024 12:32pm Acute cystitis without hematuria January 112024 12:38am Adverse drug reaction January 11, 2025 12 :38am Constipation January 11, 2025 12:3 8am History of COVID-19 January 11, 2025 12:3 8am Hyperglycemia due to type 2 diabetes snehal litus January 11, 2025 12:38am Leukocytosis January 11, 2025 12:3 8am Morbid obesity with BMI of 45.0-49.9, ad ult January 11, 2025 12:38am Medications Administered Section Active Administered Medications - [...] or prosecute any alcohol or drug abuse patient.[facility] HospitalIn the event this information is protected by the Federal Confidentiality of Alcohol and Drug Abuse Patient Records regulations: The Federal rules restrict any use of the information to criminally investigate or prosecute any alcohol or drug abuse patient.[facility] HospitalIn the event this information is protected by the Federal Confidentiality of Alcohol and Drug Abuse Patient Records regulations: The Federal rules restrict any use of the information to criminally investigate or prosecute any alcohol or drug abuse patient.[facility] HospitalIn the event this information is protected by the Federal Confidentiality of Alcohol and Drug Abuse Patient Records regulations: The Federal rules restrict any use of the information to criminally investigate or prosecute any alcohol or drug abuse patient.[facility] HospitalIn the event this information is protected by the Federal Confidentiality of Alcohol and Drug Abuse Patient Records regulations: The Federal rules restrict any use of the information to criminally investigate or prosecute any alcohol or drug abuse patient.[facility] HospitalIn the event this information is protected by the Federal Confidentiality of Alcohol and Drug Abuse Patient Records regulations: The Federal rules restrict any use of the information to criminally investigate or prosecute any alcohol or drug abuse patient.[facility] HospitalIn the event this information is protected by the Federal Confidentiality of Alcohol and Drug Abuse Patient Records regulations: The Federal rules restrict any use of the information to criminally investigate or prosecute any alcohol or drug abuse patient.[facility] HospitalIn the event this information is protected by the Federal Confidentiality of Alcohol and Drug Abuse Patient Records regulations: The Federal rules restrict any use of the information to criminally investigate or prosecute any alcohol or drug abuse patient.[facility] HospitalIn the event this information is protected by the Federal Confidentiality of Alcohol and Drug Abuse Patient Records regulations: The Federal rules restrict any use of the information to criminally investigate or prosecute any alcohol or drug abuse patient.[facility] HospitalIn the event this information is protected by the Federal Confidentiality of Alcohol and Drug Abuse Patient Records regulations: The Federal rules restrict any use of the information to criminally investigate or prosecute any alcohol or drug abuse patient.[facility] HospitalIn the event this information is protected by the Federal Confidentiality of Alcohol and Drug Abuse Patient Records regulations: The Federal rules restrict any use of the information to criminally investigate or prosecute any alcohol or drug abuse patient.[facility] HospitalIn the event this information is protected by the Federal Confidentiality of Alcohol and Drug Abuse Patient Records regulations: The Federal rules restrict any use of the information to criminally investigate or prosecute any alcohol or drug abuse patient.[facility] HospitalIn the event this information is protected by the Federal Confidentiality of Alcohol and Drug Abuse Patient Records regulations: The Federal rules restrict any use of the information to criminally investigate or prosecute any alcohol or drug abuse patient.[facility] HospitalIn the event this information is protected by the Federal Confidentiality of Alcohol and Drug Abuse Patient Records regulations: The Federal rules restrict any use of the information to criminally investigate or prosecute any alcohol or drug abuse patient.[facility] HospitalIn the event this information is protected by the Federal Confidentiality of Alcohol and Drug Abuse Patient Records regulations: The Federal rules restrict any use of the information to criminally investigate or prosecute any alcohol or drug abuse patient.[facility] HospitalIn the event this information is protected by the Federal Confidentiality of Alcohol and Drug Abuse Patient Records regulations: The Federal rules restrict any use of the information to criminally investigate or prosecute any alcohol or drug abuse patient.[facility] HospitalIn the event this information is protected by the Federal Confidentiality of Alcohol and Drug Abuse Patient Records regulations: The Federal rules restrict any use of the information to criminally investigate or prosecute any alcohol or drug abuse patient.[facility] HospitalIn the event this information is protected by the Federal Confidentiality of Alcohol and Drug Abuse Patient Records regulations: The Federal rules restrict any use of the information to criminally investigate or prosecute any alcohol or drug abuse patient.[facility] HospitalIn the event this information is protected by the Federal Confidentiality of Alcohol and Drug Abuse Patient Records regulations: The Federal rules restrict any use of the information to criminally investigate or prosecute any alcohol or drug abuse patient.[facility] HospitalIn the event this information is protected by the Federal Confidentiality of Alcohol and Drug Abuse Patient Records regulations: The Federal rules restrict any use of the information to criminally investigate or prosecute any alcohol or drug abuse patient.[facility] HospitalIn the event this information is protected by the Federal Confidentiality of Alcohol and Drug Abuse Patient Records regulations: The Federal rules restrict any use of the information to criminally investigate or prosecute any alcohol or drug abuse patient.[facility] HospitalIn the event this information is protected by the Federal Confidentiality of Alcohol and Drug Abuse Patient Records regulations: The Federal rules restrict any use of the information to criminally investigate or prosecute any alcohol or drug abuse patient.[facility] HospitalIn the event this information is protected by the Federal Confidentiality of Alcohol and Drug Abuse Patient Records regulations: The Federal rules restrict any use of the information to criminally investigate or prosecute any alcohol or drug abuse patient.[facility] HospitalIn the event this information is protected by the Federal Confidentiality of Alcohol and Drug Abuse Patient Records regulations: The Federal rules restrict any use of the information to criminally investigate or prosecute any alcohol or drug abuse patient.[facility] HospitalIn the event this information is protected by the Federal Confidentiality of Alcohol and Drug Abuse Patient Records regulations: The Federal rules restrict any use of the information to criminally investigate or prosecute any alcohol or drug abuse patient.[facility] HospitalIn the event this information is protected by the Federal Confidentiality of Alcohol and Drug Abuse Patient Records regulations: The Federal rules restrict any use of the information to criminally investigate or prosecute any alcohol or drug abuse patient.[facility] HospitalIn the event this information is protected by the Federal Confidentiality of Alcohol and Drug Abuse Patient Records regulations: The Federal rules restrict any use of the information to criminally investigate or prosecute any alcohol or drug abuse patient.[facility] HospitalIn the event this information is protected by the Federal Confidentiality of Alcohol and Drug Abuse Patient Records regulations: The Federal rules restrict any use of the information to criminally investigate or prosecute any alcohol or drug abuse patient.[facility] HospitalIn the event this information is protected by the Federal Confidentiality of Alcohol and Drug Abuse Patient Records regulations: The Federal rules restrict any use of the information to criminally investigate or prosecute any alcohol or drug abuse patient.[facility] HospitalIn the event this information is protected by the Federal Confidentiality of Alcohol and Drug Abuse Patient Records regulations: The Federal rules restrict any use of the information to criminally investigate or prosecute any alcohol or drug abuse patient.[facility] HospitalIn the event this information is protected by the Federal Confidentiality of Alcohol and Drug Abuse Patient Records regulations: The Federal rules restrict any use of the information to criminally investigate or prosecute any alcohol or drug abuse patient.[facility] HospitalIn the event this information is protected by the Federal Confidentiality of Alcohol and Drug Abuse Patient Records regulations: The Federal rules restrict any use of the information to criminally investigate or prosecute any alcohol or drug abuse patient.[facility] HospitalIn the event this information is protected by the Federal Confidentiality of Alcohol and Drug Abuse Patient Records regulations: The Federal rules restrict any use of the information to criminally investigate or prosecute any alcohol or drug abuse patient.[facility] HospitalIn the event this information is protected by the Federal Confidentiality of Alcohol and Drug Abuse Patient Records regulations: The Federal rules restrict any use of the information to criminally investigate or prosecute any alcohol or drug abuse patient.[facility] HospitalIn the event this information is protected by the Federal Confidentiality of Alcohol and Drug Abuse Patient Records regulations: The Federal rules restrict any use of the information to criminally investigate or prosecute any alcohol or drug abuse patient.[facility] HospitalIn the event this information is protected by the Federal Confidentiality of Alcohol and Drug Abuse Patient Records regulations: The Federal rules restrict any use of the information to criminally investigate or prosecute any alcohol or drug abuse patient.[facility] HospitalIn the event this information is protected by the Federal Confidentiality of Alcohol and Drug Abuse Patient Records regulations: The Federal rules restrict any use of the information to criminally investigate or prosecute any alcohol or drug abuse patient.[facility] HospitalIn the event this information is protected by the Federal Confidentiality of Alcohol and Drug Abuse Patient Records regulations: The Federal rules restrict any use of the information to criminally investigate or prosecute any alcohol or drug abuse patient.[facility] HospitalIn the event this information is protected by the Federal Confidentiality of Alcohol and Drug Abuse Patient Records regulations: The Federal rules restrict any use of the information to criminally investigate or prosecute any alcohol or drug abuse patient.[facility] HospitalIn the event this information is protected by the Federal Confidentiality of Alcohol and Drug Abuse Patient Records regulations: The Federal rules restrict any use of the information to criminally investigate or prosecute any alcohol or drug abuse patient.[facility] HospitalIn the event this information is protected by the Federal Confidentiality of Alcohol and Drug Abuse Patient Records regulations: The Federal rules restrict any use of the information to criminally investigate or prosecute any alcohol or drug abuse patient.[facility] HospitalIn the event this information is protected by the Federal Confidentiality of Alcohol and Drug Abuse Patient Records regulations: The Federal rules restrict any use of the information to criminally investigate or prosecute any alcohol or drug abuse patient.[facility] HospitalIn the event this information is protected by the Federal Confidentiality of Alcohol and Drug Abuse Patient Records regulations: The Federal rules restrict any use of the information to criminally investigate or prosecute any alcohol or drug abuse patient.[facility] HospitalIn the event this information is protected by the Federal Confidentiality of Alcohol and Drug Abuse Patient Records regulations: The Federal rules restrict any use of the information to criminally investigate or prosecute any alcohol or drug abuse patient.[facility] HospitalIn the event this information is protected by the Federal Confidentiality of Alcohol and Drug Abuse Patient Records regulations: The Federal rules restrict any use of the information to criminally investigate or prosecute any alcohol or drug abuse patient.[facility] HospitalIn the event this information is protected by the Federal Confidentiality of Alcohol and Drug Abuse Patient Records regulations: The Federal rules restrict any use of the information to criminally investigate or prosecute any alcohol or drug abuse patient.[facility] HospitalIn the event this information is protected by the Federal Confidentiality of Alcohol and Drug Abuse Patient Records regulations: The Federal rules restrict any use of the information to criminally investigate or prosecute any alcohol or drug abuse patient.[facility] HospitalIn the event this information is protected by the Federal Confidentiality of Alcohol and Drug Abuse Patient Records regulations: The Federal rules restrict any use of the information to criminally investigate or prosecute any alcohol or drug abuse patient.[facility] HospitalIn the event this information is protected by the Federal Confidentiality of Alcohol and Drug Abuse Patient Records regulations: The Federal rules restrict any use of the information to criminally investigate or prosecute any alcohol or drug abuse patient.[facility] HospitalIn the event this information is protected by the Federal Confidentiality of Alcohol and Drug Abuse Patient Records regulations: The Federal rules restrict any use of the information to criminally investigate or prosecute any alcohol or drug abuse patient.[facility] HospitalIn the event this information is protected by the Federal Confidentiality of Alcohol and Drug Abuse Patient Records regulations: The Federal rules restrict any use of the information to criminally investigate or prosecute any alcohol or drug abuse patient.[facility] HospitalIn the event this information is protected by the Federal Confidentiality of Alcohol and Drug Abuse Patient Records regulations: The Federal rules restrict any use of the information to criminally investigate or prosecute any alcohol or drug abuse patient.[facility] HospitalIn the event this information is protected by the Federal Confidentiality of Alcohol and Drug Abuse Patient Records regulations: The Federal rules restrict any use of the information to criminally investigate or prosecute any alcohol or drug abuse patient.[facility] HospitalIn the event this information is protected by the Federal Confidentiality of Alcohol and Drug Abuse Patient Records regulations: The Federal rules restrict any use of the information to criminally investigate or prosecute any alcohol or drug abuse patient.[facility] HospitalIn the event this information is protected by the Federal Confidentiality of Alcohol and Drug Abuse Patient Records regulations: The Federal rules restrict any use of the information to criminally investigate or prosecute any alcohol or drug abuse patient.[facility] HospitalIn the event this information is protected by the Federal Confidentiality of Alcohol and Drug Abuse Patient Records regulations: The Federal rules restrict any use of the information to criminally investigate or prosecute any alcohol or drug abuse patient.[facility] HospitalIn the event this information is protected by the Federal Confidentiality of Alcohol and Drug Abuse Patient Records regulations: The Federal rules restrict any use of the information to criminally investigate or prosecute any alcohol or drug abuse patient.[facility] HospitalIn the event this information is protected by the Federal Confidentiality of Alcohol and Drug Abuse Patient Records regulations: The Federal rules restrict any use of the information to criminally investigate or prosecute any alcohol or drug abuse patient.[facility] HospitalIn the event this information is protected by the Federal Confidentiality of Alcohol and Drug Abuse Patient Records regulations: The Federal rules restrict any use of the information to criminally investigate or prosecute any alcohol or drug abuse patient.[facility] HospitalIn the event this information is protected by the Federal Confidentiality of Alcohol and Drug Abuse Patient Records regulations: The Federal rules restrict any use of the information to criminally investigate or prosecute any alcohol or drug abuse patient.[facility] HospitalIn the event this information is protected by the Federal Confidentiality of Alcohol and Drug Abuse Patient Records regulations: The Federal rules restrict any use of the information to criminally investigate or prosecute any alcohol or drug abuse patient.[facility] HospitalIn the event this information is protected by the Federal Confidentiality of Alcohol and Drug Abuse Patient Records regulations: The Federal rules restrict any use of the information to criminally investigate or prosecute any alcohol or drug abuse patient.[facility] HospitalIn the event this information is protected by the Federal Confidentiality of Alcohol and Drug Abuse Patient Records regulations: The Federal rules restrict any use of the information to criminally investigate or prosecute any alcohol or drug abuse patient.[facility] HospitalIn the event this information is protected by the Federal Confidentiality of Alcohol and Drug Abuse Patient Records regulations: The Federal rules restrict any use of the information to criminally investigate or prosecute any alcohol or drug abuse patient.[facility] HospitalIn the event this information is protected by the Federal Confidentiality of Alcohol and Drug Abuse Patient Records regulations: The Federal rules restrict any use of the information to criminally investigate or prosecute any alcohol or drug abuse patient.[facility] HospitalIn the event this information is protected by the Federal Confidentiality of Alcohol and Drug Abuse Patient Records regulations: The Federal rules restrict any use of the information to criminally investigate or prosecute any alcohol or drug abuse patient.[facility] HospitalIn the event this information is protected by the Federal Confidentiality of Alcohol and Drug Abuse Patient Records regulations: The Federal rules restrict any use of the information to criminally investigate or prosecute any alcohol or drug abuse patient.[facility] Reason for Visit (unrecogniz ed section [...] diabetes Specialty Diagnoses / Procedures [facility] Referred To Contact Endocrinology Diagnoses Uncontrolled type 2 diabetes mellitus with hyperglycemia (HCC) Hypothyroidism, unspecified type Procedures CONSULT TO ENDOCRINOLOGY OFFICE/OUTPATIENT [facility] 60-74 MINUTES Papa Douglass MD [address] [place] [address] Referral ID Status Reason Start Date Expiration Date Visits Requested Visits Authorized [id number] Pending Review PCP Requested Referral 02/08/2022 02/08/2023 [...] s Specialty Diagnoses / Procedures [facility] t Referred To Contact Allergy Diagnoses Allergy to multiple antibiotics Procedures CONSULT TO ALLERGY/IMMUNOLOGY OFFICE/OUTPATIENT [facility] 60-74 MINUTES Mela Murphy APRN.CASTING ASSISTANT [address] [place] [address] Referral ID Status Reason Start Date Expiration Date Visits Requested Visits Authorized [id number] Pending Review PCP Requested Referral 08/16/2022 08/14/2023 1 1 Reason Comments Patient Update Reason Comments Results Clinical Update Reason Comments Headache FRANCO, chills, congesti on, swelling in feet and [...] screening Specialty Diagnoses / Procedures Referred By Manuelac t Referred To Contact General Surgery Diagnoses Colitis Encounter for screening colonoscopy Procedures CONSULT TO GENERAL SURGERY OFFICE/OUTPATIENT NEW HIGH MDM 60-74 MINUTES Papa Douglass MD [address] [place] [address] Referral ID Status Reason Start Date Expiration Date Visits Requested Visits Authorized [id number] Pending Review PCP Requested Referral 05/02/2024 1 1 Reason Comments Consult Reason Comments Abdominal Pain Reason Comments Labs Only Reason Comments New Patient Specialty Diagnoses / Procedures Referred By Contisidro t Referred To Contact Surgical Oncology Diagnoses Other malignant neuroendocrine tumors Joseluis Riggins, [facility] [address] [place] [address] Blas Rod MD [address] [place] [address] Referral ID Status Reason Start Date Expiration Date Visits Requested Visits Authorized [id number] New Request Surgical Evaluation 04/16/2024 05/11/2025 1 1 Specialty Diagnoses / Procedures Referred By Sherita t Referred To Contact Diagnoses Neuroendocrine tumor Procedures UPPER EUS MT ESOPHAGOGASTRODUODENOSCOPY US SCOPE W/ADJ STRXRS Karolina Piedra, PAPER BALER-CASTING ASSISTANT, DNP [address] [place] [address] Referral ID Status Reason Start Date Expiration Date V isits Requested Visits Authorized [id number] New Request 05/07/2024 06/01/2025 1 1 Reason Comments Follow-up Reason Comments New Patient Pt was hospitalized in March for bleeding tumor - Dr Rod referred for systemic therapy - not a candidate for surgery Specialty Diagnoses / Procedures Referred By Sherita mcguire Referred To Contact Oncology Diagnoses Neuroendocrine tumor Karolina Piedra APRN-CNP, [facility] [address] [place] [address] Referral ID Status Reason Start Date Expiration Date V isits Requested Visits Authorized [id number] New Request 07/09/2024 08/03/2025 1 1 Specialty Diagnoses / Procedures Referred By Sherita mcguire Referred To Contact Diagnoses Neuroendocrine tumor Procedures NUC PET HEAD TO THIGH Karolina Piedra APRN-CNP, [facility] [address] [place] [address] Referral ID Status Reason Start Date Expiration Date Visits Re quested Visits Authorized [id number] Closed 07/02/2024 07/27/2025 1 1 Reason Onset Date Comments Appointment 07/31/2024 Reason Comments Follow-up New Patient follow u pHas been doing ok since last visit Results Labs and scans compl eted on 08/14/24 Reason Onset Date Comments Lab Review 09/21/2024 Reason Comments Foot Pain (Midfoot) Reason Comments Follow-up (Please send link to listed mobile # [phone] C/o having issues with acid reflux and she was recently diagnosed with COVID and is she is currently on treatment for this Care Teams (unrecognized sec tion and content) Lodge Attendant Relationship Specialty Start Date End Date Papa Douglass MD [address] [place] [address] PCP - General Family Practice 04/27/10 Kiley Randall [facility] [address] [place] [address] Pharmacist Pharmacy 11/13/19 Jessica Rose, [facility] [address] [facility] [place] [address] Pharmacist Pharmacy 02/16/21 Lodge Attendant Relationship Specialty Start Date End Date Papa Douglass MD [address] [facility] [place] [address] PCP - General Family Practice 04/27/10 Willemangela Kiley, [facility] [address] [facility] [place] [address] Pharmacist Pharmacy 11/13/19 Milton Jessica, [facility] [address] [facility] [place] [address] Pharmacist Pharmacy 02/16/21 Lodge Attendant Relationship Specialty Start Date End Date Papa Douglass MD [address] [facility] [place] [address] PCP - General Family Practice 04/27/10 Willemangela Kiley, [facility] [address] [facility] [place] [address] Pharmacist Pharmacy 11/13/19 Milton Jessica, [facility] [address] [facility] [place] [address] Pharmacist Pharmacy 02/16/21 Lodge Attendant Relationship Specialty Start Date End Date Papa Douglass MD [address] [place] [address] PCP - General Family Practice 04/27/10 Willemangela Kiley, [facility] [address] [facility] [place] [address] Pharmacist Pharmacy 11/13/19 Milton Jessica, [facility] [address] [facility] [place] [address] Pharmacist Pharmacy 02/16/21 Lodge Attendant Relationship Specialty Start Date End Date Papa Douglass MD [address] [facility] [place] [address] PCP - General Family Practice 04/27/10 Willemangela Angelnoah, [facility] [address] [facility] [place] [address] Pharmacist Pharmacy 11/13/19 [facility] [address] [facility] [place] [address] Pharmacist Pharmacy 02/16/21 Lodge Attendant Relationship Specialty Start Date End Date Papa Douglass MD [address] [place] [address] PCP - General Family Practice 04/27/10 [facility] [address] [facility] [place] [address] Pharmacist Pharmacy 11/13/19 Jessica Rose, [facility] [address] [facility] [place] [address] Pharmacist Pharmacy 02/16/21 Lodge Attendant Relationship Specialty Start Date End Date Papa Douglass MD [address] [place] [address] PCP - General Family Practice 04/27/10 Kiley Randall, [facility] [address] [facility] [place] [address] Pharmacist Pharmacy 11/13/19 Jessica Rose, [facility] [address] [facility] [place] [address] Pharmacist Pharmacy 02/16/21 Lodge Attendant Relationship Specialty Start Date End Date Papa Douglass MD [address] [place] [address] PCP - General Family Practice 04/27/10 DubKiley miller, [facility] [address] [facility] [place] [address] Pharmacist Pharmacy 11/13/19 [facility] [address] [facility] [place] [address] Pharmacist Pharmacy 02/16/21 Lodge Attendant Relationship Specialty Start Date End Date Papa Douglass MD [address] [place] [address] PCP - General Family Practice 04/27/10 Tonia Angelnoah, [facility] [address] [place] [address] Pharmacist Pharmacy 11/13/19 [facility] [address] [facility] [place] [address] Pharmacist Pharmacy 02/16/21 Lodge Attendant Relationship Specialty Start Date End Date Papa Douglass MD [address] [facility] [place] [address] PCP - General Family Practice 04/27/10 Tonia Angelnoah, [facility] [address] [facility] [place] [address] Pharmacist Pharmacy 11/13/19 Jessica Rose, [facility] [address] [facility] [place] [address] Pharmacist Pharmacy 02/16/21 Lodge Attendant Relationship Specialty Start Date End Date Papa Douglass MD [address] [place] [address] PCP - General Family Practice 04/27/10 Tonia Angelnoah, [facility] [address] [facility] [place] [address] Pharmacist Pharmacy 11/13/19 Jessica Rose, [facility] [address] [facility] [place] [address] Pharmacist Pharmacy 02/16/21 Lodge Attendant Relationship Specialty Start Date End Date Papa Douglass MD [address] [facility] [place] [address] PCP - General Family Practice 04/27/10 Kiley Randall, [facility] [address] [facility] [place] [address] Pharmacist Pharmacy 11/13/19 Jessica Rose, [facility] [address] [facility] [place] [address] Pharmacist Pharmacy 02/16/21 Lodge Attendant Relationship Specialty Start Date End Date Papa Douglass MD [address] [facility] [place] [address] PCP - General Family Medicine 04/27/10 WillemKiley miller, [facility] [address] [facility] [place] [address] Pharmacist Pharmacy 11/13/19 Jessica Rose, [facility] [address] [facility] [place] [address] Pharmacist Pharmacy 02/16/21 Lodge Attendant Relationship Specialty Start Date End Date Papa Douglass MD [address] [place] [address] PCP - General Family Medicine 04/27/10 WillemKiley miller, [facility] [address] [facility] [place] [address] Pharmacist Pharmacy 11/13/19 Jessica Rose, [facility] [address] [facility] [place] [address] Pharmacist Pharmacy 02/16/21 Lodge Attendant Relationship Specialty Start Date End Date Papa Douglass MD [address] [facility] [place] [address] PCP - General Family Medicine 04/27/10 Kiley Randall, [facility] [address] [place] [address] Pharmacist Pharmacy 11/13/19 Jessica Rose, [facility] [address] [facility] [place] [address] Pharmacist Pharmacy 02/16/21 Lodge Attendant Relationship Specialty Start Date End Date Papa Douglass MD [address] [facility] [place] [address] PCP - General Family Medicine 04/27/10 Kiley Randall, [facility] [address] [facility] [place] [address] Pharmacist Pharmacy 11/13/19 Jessica Rose, [facility] [address] [place] [address] Pharmacist Pharmacy 02/16/21 Lodge Attendant Relationship Specialty Start Date End Date Papa Douglass MD [address] [facility] [place] [address] PCP - General Family Medicine 04/27/10 Kiley Randall, [facility] [address] [facility] [place] [address] Pharmacist Pharmacy 11/13/19 Jessica Rose, [facility] [address] [facility] [place] [address] Pharmacist Pharmacy 02/16/21 Lodge Attendant Relationship Specialty Start Date End Date Papa Douglass MD [address] [facility] [place] [address] PCP - General Family Medicine 04/27/10 Kiley Randall, [facility] [address] [facility] [place] [address] Pharmacist Pharmacy 11/13/19 Jessica Rose, [facility] [address] [facility] [place] [address] Pharmacist Pharmacy 02/16/21 Lodge Attendant Relationship Specialty Start Date End Date Papa Douglass MD [address] [facility] [place] [address] PCP - General Family Medicine 04/27/10 Kiley Randall, [facility] [address] [facility] [place] [address] Pharmacist Pharmacy 11/13/19 Jessica Rose, [facility] [address] [facility] [place] [address] Pharmacist Pharmacy 02/16/21 Team Status: Active Member [...] Dr. Natalya Chun MD Emergency Provider Active Lodge Attendant Relationship Specialty Start Date End Date Papa Douglass MD [address] [facility] [place] [address] PCP - General Family Medicine 04/27/10 Kiley Randall, [facility] [address] [facility] [place] [address] Pharmacist Pharmacy 11/13/19 Jessica Rose, [facility] [address] [facility] [place] [address] Pharmacist Pharmacy 02/16/21 Lodge Attendant Relationship Specialty Start Date End Date Papa Douglass MD [address] [facility] [place] [address] PCP - General Family Medicine 04/27/10 Kiley Randall, [facility] [address] [facility] [place] [address] Pharmacist Pharmacy 11/13/19 Jessica Rose, [facility] [address] [facility] [place] [address] Pharmacist Pharmacy 02/16/21 Lodge Attendant Relationship Specialty Start Date End Date Papa Douglass MD [address] [facility] [place] [address] PCP - General Family Medicine 04/27/10 Willemangela Kiley, [facility] [address] [facility] [place] [address] Pharmacist Pharmacy 11/13/19 Milton Jessica, [facility] [address] [facility] [place] [address] Pharmacist Pharmacy 02/16/21 Lodge Attendant Relationship Specialty Start Date End Date Papa Douglass MD [address] [facility] [place] [address] PCP - General Family Medicine 04/27/10 Kiley Randall, [facility] [address] [facility] [place] [address] Pharmacist Pharmacy 11/13/19 Milton Jessica, [facility] [address] [facility] [place] [address] Pharmacist Pharmacy 02/16/21 Team Status: Inactive Member Role Status Dates Dr. Papa Douglass MD Primary Care Provider Active Dr. Natalya Chun MD Attending Provider, Emergency Provider Active Team Status: Inactive Member Role Status Dates Dr. Papa Douglass MD Primary Care Provider Active Mela Murphy LICENSED EMBALMER SUPERVISOR, LICENSED EMBALMER SUPERVISOR-C Attending Provider, Referring Pro vider Active Team Status: Inactive Member Role Status Dates Dr. Papa Douglass MD Primary Care Provider Active Dr. Hiram Hernandez DO Emergency Provider Active Lodge Attendant Relationship Specialty Start Date End Date Papa Douglass MD [address] [facility] [place] [address] PCP - General Family Medicine 04/27/10 [facility] Angel, [facility] [address] [facility] [place] [address] Pharmacist Pharmacy 11/13/19 PioneerJessica griggs, [facility] [address] [facility] [place] [address] Pharmacist Pharmacy 02/16/21 Lodge Attendant Relationship Specialty Start Date End Date Papa Douglass MD [address] [facility] [place] [address] PCP - General Family Medicine 04/27/10 Tonia Angelnoah, [facility] [address] [facility] [place] [address] Pharmacist Pharmacy 11/13/19 [facility] [address] [facility] [place] [address] Pharmacist Pharmacy 02/16/21 Lodge Attendant Relationship Specialty Start Date End Date Papa Douglass MD [address] [facility] [place] [address] PCP - General Family Medicine 04/27/10 Tonia Angelnoah, [facility] [address] [facility] [place] [address] Pharmacist Pharmacy 11/13/19 [facility] [address] [facility] [place] [address] Pharmacist Pharmacy 02/16/21 Lodge Attendant Relationship Specialty Start Date End Date Papa Douglass MD [address] [facility] [place] [address] PCP - General Family Medicine 04/27/10 [facility] [address] [facility] [place] [address] Pharmacist Pharmacy 11/13/19 Jessica Rose, [facility] [address] [facility] [place] [address] Pharmacist Pharmacy 02/16/21 Lodge Attendant Relationship Specialty Start Date End Date Papa Douglass MD [address] [facility] [place] [address] PCP - General Family Medicine 04/27/10 [facility]Kiley [facility]erAud[facility] [address] [facility] [place] [address] Pharmacist Pharmacy 11/13/19 Jessica Rose, [facility] [address] [facility] [place] [address] Pharmacist Pharmacy 02/16/21 Team Status: Inactive Member [...] Hernandez DO Referring Provider, Emergency Provider Active Lodge Attendant Relationship Specialty Start Date End Date Papa Douglass MD [address] [facility] [place] [address] PCP - General Family Medicine 04/27/10 DubKiley miller, [facility] [address] [facility] [place] [address] Pharmacist Pharmacy 11/13/19 [facility] [address] [facility] [place] [address] Pharmacist Pharmacy 02/16/21 Lodge Attendant Relationship Specialty Start Date End Date Papa Douglass MD [address] [facility] [place] [address] PCP - General Family Medicine 04/27/10 ToniaAngelnoah, [facility] [address] [facility] [place] [address] Pharmacist Pharmacy 11/13/19 [facility] [address] [facility] [place] [address] Pharmacist Pharmacy 02/16/21 Lodge Attendant Relationship Specialty Start Date End Date Papa Douglass MD [address] [facility] [place] [address] PCP - General Family Medicine 04/27/10 Kiley Randall, [facility] [address] [facility] [place] [address] Pharmacist Pharmacy 11/13/19 Jessica Rose, [facility] [address] [facility] [place] [address] Pharmacist Pharmacy 02/16/21 Lodge Attendant Relationship Specialty Start Date End Date Papa Douglass MD [address] [facility] [address] PCP - General Family Medicine 04/27/10 Kiley Randall, [facility] [address] [facility] [place] [address] Pharmacist Pharmacy 11/13/19 Jessica Rose, [facility] [address] [facility] [place] [address] Pharmacist Pharmacy 02/16/21 Lodge Attendant Relationship Specialty Start Date End Date Papa Douglass MD [address] [facility] [place] [address] PCP - General Family Medicine 04/27/10 Kiley Randall, [facility] [address] [facility] [place] [address] Pharmacist Pharmacy 11/13/19 Jessica Rose, [facility] [address] [facility] [place] [address] Pharmacist Pharmacy 02/16/21 Team Status: Inactive Member Role Status Dates Dr. Papa Douglass MD Primary Care Provider Active Dr. Hiram Hernandez , Attending Provid er, Referring Provider, Emergency Provider Active Team Status: Inactive Member Role Status Dates Dr. Papa Douglass MD Primary Care Provider Active Dr. Velasquez Hill , Emergency Provider Active Lodge Attendant Relationship Specialty Start Date End Date Papa Douglass MD [address] [facility] [place] [address] PCP - General Family Medicine 04/27/10 Lodge Attendant Relationship Specialty Start Date End Date Papa Douglass MD [address] [facility] [place] [address] PCP - General Family Medicine 04/27/10 Lodge Attendant Relationship Specialty Start Date End Date Papa Douglass MD [address] [facility] [place] [address] PCP - General Family Medicine 04/27/10 Lodge Attendant Relationship Specialty Start Date End Date Papa Douglass MD [address] [facility] [place] [address] PCP - General Family Medicine 04/27/10 Team Status: Inactive Member Role Status Dates Dr. Papa Douglass MD Primary Care Provider Active Dr. Velasquez Hill DO Attending Provider, Emergency Anderson mckeon Active Team Status: Inactive Member Role Status Dates Dr. Papa Douglass MD Primary Care Provider Active Dr. Pranav Ward MD Emergency Provider Active Lodge Attendant Relationship Specialty Start Date End Date Papa Douglass MD [address] [facility] [place] [address] PCP - General Family Medicine 04/27/10 Lodge Attendant Relationship Specialty Start Date End Date Papa Douglass MD [address] [facility] [place] [address] PCP - General Family Medicine 04/27/10 Lodge Attendant Relationship Specialty Start Date End Date Papa Douglass MD [address] [facility] [place] [address] PCP - General Family Medicine 04/27/10 Lodge Attendant Relationship Specialty Start Date End Date Papa Douglass MD [address] [facility] [place] [address] PCP - General Family Medicine 04/27/10 Lodge Attendant Relationship Specialty Start Date End Date Papa Douglass MD [address] [facility] [place] [address] PCP - General Family Medicine 04/27/10 Team Status: Inactive Member Role Status Dates Dr. Papa Douglass MD Primary Care Provider, Referr ing Provider Active Jaziel Drake , ARVIND-C Attending Provider Active Team Status: Active Member [...] Primary Care Provider Active Dr. Candy Archuleta , Emergency Provider Active Dr. Cecilia Vilal , DO Admit Provider, Other Provider Ac tive Dr. Sergo Bustillos MD Attending Provider, Other Provider Active Team Status: Inactive Member Role Status Dates Dr. Papa Douglass MD Primary Care Provider Active Dr. Pranav Ward MD Attending Provider, Emergency Provi sourav Active Team Status: Inactive Member Role Status Dates Dr. Papa Douglass MD Primary Care Provider Active Dr. Candy Archuleta , Emergency Provider Active Dr. Cecilia Villa , DO Admit Provider, Other Provider Ac tive Dr. Sergo Bustillos MD Attending Provider Active Team Status: Active Member Role Status Dates Dr. Papa Douglass MD Primary Care Provider Active Jaziel Drake , LICENSED EMBALMER SUPERVISOR-C Attending Provider, Referring Pr ovider Active Lodge Attendant Relationship Specialty Start Date End Date Papa Douglass MD [address] [place] [address] PCP - General Family Medicine 04/27/10 Lodge Attendant Relationship Specialty Start Date End Date Papa Douglass MD [address] [place] [address] PCP - General Family Medicine 04/27/10 Lodge Attendant Relationship Specialty Start Date End Date Papa Douglass MD [address] [place] [address] PCP - General Family Medicine 04/27/10 Lodge Attendant Relationship Specialty Start Date End Date Papa Douglass MD [address] [place] [address] PCP - General Family Medicine 04/27/10 Lodge Attendant Relationship Specialty Start Date End Date Papa Douglass MD [address] [place] [address] PCP - General Family Medicine 04/27/10 Lodge Attendant Relationship Specialty Start Date End Date Papa Douglass MD [address] [place] [address] PCP - General Family Medicine 04/27/10 Lodge Attendant Relationship Specialty Start Date End Date Papa Douglass MD [address] [place] [address] PCP - General Family Medicine 04/27/10 [facility] [address] [place] [address] Pharmacist Pharmacy 11/13/19 12/11/22 MiltonJessica [facility]gsAud[facility] [address] [place] [address] Pharmacist Pharmacy 02/16/21 12/11/22 Lodge Attendant Relationship Specialty Start Date End Date Papa Douglass MD [address] [place] [address] PCP - General Family Medicine 04/27/10 [facility] [address] [place] [address] Pharmacist Pharmacy 11/13/19 12/11/22 PioneerJessica gr[facility]gsAud[facility] [address] [place] [address] Pharmacist Pharmacy 02/16/21 12/11/22 Lodge Attendant Relationship Specialty Start Date End Date Vero Ortez NP [address] [facility] [place] [address] PCP - General Nurse Practitioner - Adult Health 04/16/24 Joseluis Riggins, [facility] [address] [place], [place] [address] Oncologist Medical Oncology 04/16/24 Natalya Saavedra, RN Registered Nurse 04/16/24 Rylee Weaver LSW Concrete Layer Social Work 04/20/24 Bruna Frey LISW Concrete Layer 04/20/24 Jaziel Drake MD [address] [place] [phone] Shield Runner Nurse Practitioner - Family 05/07/24 Mari Kaba, 1st grade teacherField Nurse Oncology 05/07/24 Lodge Attendant Relationship Specialty Start Date End Date Vero Ortez NP [address] [place] [address] [facility] [place] [address] PCP - General Nurse Practitioner - Adult Health 04/16/24 Joseluis Riggins [facility] [address] [place], [place] [address] Oncologist Medical Oncology 04/16/24 Natalya Saavedra, ALFONZO Registered Nurse 04/16/24 Rylee Weaver LSW Concrete Layer Social Work 04/20/24FebBruna pulido LISW Concrete Layer 04/20/24 Jaziel Drake MD [address] [place] [address] Shield Runner Nurse Practitioner - Family 05/07/24 Mari Kaba, 1st grade teacherField Nurse Oncology 05/07/24 Lodge Attendant Relationship Specialty Start Date End Date Vero Ortez NP [address] [place] [address] [facility] [place] [address] PCP - General Nurse Practitioner - Adult Health 04/16/24 Joseluis Riggins [facility] [address] [place], [place] [address] Oncologist Medical Oncology 04/16/24 Natalya Saavedra, RN Registered Nurse 04/16/24 Rylee Weaver LSW Concrete Layer Social Work 04/20/24 Bruna Frey LISW Concrete Layer 04/20/24 Jaziel Drake MD [address] [place] [phone] Shield Runner Nurse Practitioner - [facility] 05/07/24 Mari Kaba, 1st grade teacherField Nurse Oncology 05/07/24 Lodge Attendant Relationship Specialty Start Date End Date Vero Ortez NP [address] [place] [address] [facility] [place] [address] PCP - General Nurse Practitioner - Adult Health 04/16/24 Joseluis Riggins [facility] [address] [place], [place] [address] Oncologist Medical Oncology 04/16/24 Natalya Saavedra, RN Registered Nurse 04/16/24 Rylee Weaver LSW Concrete Layer Social Work 04/20/24 [facility] LISW Concrete Layer 04/20/24 Jaziel Drake MD [address] [place] [phone] Shield Runner Nurse Practitioner - [facility] 05/07/24 Gia Kilgore, 1st grade teacher Medical Oncology 07/30/24 Lodge Attendant Relationship Specialty Start Date End Date Vero Ortez NP [address] [place] [address] PCP - General Nurse Practitioner - Adult Health 04/16/24 Joseluis Riggins [facility] [address] [place] [address] Oncologist Medical Oncology 04/16/24 Natalya Saavedra, RN Registered Nurse 04/16/24 Rylee Weaver LSW Concrete Layer Social Work 04/20/24 Bruna Frey LISW Concrete Layer 04/20/24 Jaziel Drake MD [address] [place] [address] Shield Runner Nurse Practitioner - Family 05/07/24 Gia Kilgore, 1st grade teacher Medical Oncology 07/30/24 Lodge Attendant Relationship Specialty Start Date End Date Vero Ortez NP [address] [place] [address] PCP - General Nurse Practitioner - Adult Health 04/16/24 [facility] [address] [place] [address] Oncologist Medical Oncology 04/16/24 Natalya Saavedra, RN Registered Nurse 04/16/24 Rylee Weaver LSW Concrete Layer Social Work 04/20/24FebBruna pulido LISW Concrete Layer 04/20/24 Jaziel Drake MD [address] [place] [phone] Shield Runner Nurse Practitioner - [facility] 05/07/24 Gia Kilgore 1st grade teacher Medical Oncology 07/30/24 Lodge Attendant Relationship Specialty Start Date End Date Vero Ortez NP [address] [place] [address] PCP - General Nurse Practitioner - [facility] 04/16/24 [facility] [address] [address] Oncologist Medical Oncology 04/16/24 Natalya Saavedra, ALFONZO Registered Nurse 04/16/24 Rylee Weaver LSW Concrete Layer Social Work 04/20/24 Bruna Frey LISW Concrete Layer 04/20/24 Jaziel Drake MD [address] [place] [phone] Shield Runner Nurse Practitioner - Family 05/07/24 Gia Kilgore, 1st grade teacher Medical Oncology 07/30/24 07/30/24 Lodge Attendant Relationship Specialty Start Date End Date Vero Ortez NP [address] [place] [address] PCP - General Nurse Practitioner - Adult Health 04/16/24 Joseluis Riggins [facility] [address] [place], [place] [address] Oncologist Medical Oncology 04/16/24 Natalya Saavedra, RN Registered Nurse 04/16/24 Rylee Weaver LSW Concrete Layer Social Work 04/20/24FebBruna pulido LISW Concrete Layer 04/20/24 Jaziel Drake MD [address] [place] [phone] Shield Runner Nurse Practitioner - Family 05/07/24 Gia Kilgore, 1st grade teacher Medical Oncology 07/30/24 07/30/24 Lodge Attendant Relationship Specialty Start Date End Date Vero Ortez NP [address] [place] [address] PCP - General Nurse Practitioner - Adult Health 04/16/24 Joseluis Riggins [facility] [address] [place] [address] Oncologist Medical Oncology 04/16/24 Natalya Saavedra, RN Registered Nurse 04/16/24 Rylee Weaver [facility] Concrete Layer Social Work 04/20/24 [facility] LISW Concrete Layer 04/20/24 Jaziel Drake MD [address] [place] [phone] Shield Runner Nurse Practitioner - Family 05/07/24 Lodge Attendant Relationship Specialty Start Date End Date Vero Ortez NP [address] [place] [address] PCP - General Nurse Practitioner - Adult Health 04/16/24 Joseluis Riggins [facility] [address] [place], [place] [address] Oncologist Medical Oncology 04/16/24 Natalya Saavedra, RN Registered Nurse 04/16/24 Rylee Weaver LSW Concrete Layer Social Work 04/20/24 Bruna Frey LISW Concrete Layer 04/20/24 Jaziel Drake MD [address] [place] [phone] Shield Runner Nurse Practitioner - Family 05/07/24 Lodge Attendant Relationship Specialty Start Date End Date Vero Ortez NP [address] [facility] [place] [address] PCP - General Nurse Practitioner - Adult Health 04/16/24 Joseluis Riggins [facility] [address] [place] [address] Oncologist Medical Oncology 04/16/24 Natalya Saavedra, ALFONZO Registered Nurse 04/16/24 Rylee Weaver LSW Concrete Layer Social Work 04/20/24FebBruna wright LISW Concrete Layer 04/20/24 Jaziel Drake MD [address] [place] [phone] Shield Runner Nurse Practitioner - Family 05/07/24 Lodge Attendant Relationship Specialty Start Date End Date Vero Ortez NP [address] [place] [address] [facility] [place] [address] PCP - General Nurse Practitioner - Adult Health 04/16/24 [facility] [address] [place], [place] [address] [phone] Oncologist Medical Oncology 04/16/24 Natalya Saavedra, RN Registered Nurse 04/16/24 Rylee Weaver LSW Concrete Layer Social Work 9/30/24 Bruna Frey LISW Concrete Layer 04/20/24 Jaziel Drake MD [address] [place] [phone] Shield Runner Nurse Practitioner - Family 05/07/24 Lodge Attendant Relationship Specialty Start Date End Date Vero Ortez NP [address] [place] [address] PCP - General Nurse Practitioner - Adult Health 04/16/24 [facility] [address] [place] [address] Oncologist Medical Oncology 04/16/24 Natalya Saavedra, RN Registered Nurse 04/16/24 Rylee Weaver LSW Concrete Layer Social Work 04/20/24 Bruna Frey LISW Concrete Layer 04/20/24 Jaziel Drake MD [address] [place] [phone] Shield Runner Nurse Practitioner - Family 05/07/24 Lodge Attendant Relationship Specialty Start Date End Date Vero Ortez NP [address] [facility] [place] [address] PCP - General Nurse Practitioner - [facility] 04/16/24 [facility] [address] [place] [address] Oncologist Medical Oncology 04/16/24 Natalya Saavedra, RN Registered Nurse 04/16/24 Rylee Weaver LSW Concrete Layer Social Work 04/20/24 Bruna Frey LISW Concrete Layer 04/20/24 Jaziel Drake MD [address] [place] [address] Shield Runner Nurse Practitioner - Family 05/07/24 Lodge Attendant Relationship Specialty Start Date End Date Papa Douglass MD [address] [place] [address] PCP - General Family Medicine 04/27/10 Vero Ortez CNP 0 [facility] [place] [address] Referring Family Medicine 04/07/24 Coco Waters APRN.CASTING ASSISTANT [address] [place], [place] [address] Wireworker Family [facility] 06/28/24 Feliciano Nunez APRN.CASTING ASSISTANT [address] [place], [place] [address] Wireworker [facility] 07/07/24 Team Status: Active Member Role Status [...] KWAN Primary Care Provider Active Start: June 16, 2024 End: June 16, 2024 Dr. Ralph Singh MD Attending Provider Active Start: June 16, 2024 End: June 16, 2024 Dr. Ralph Singh MD Referring Provider Active Start: June 16, 2024 End: June 16, 2024 Team Status: Inactive Member Role Status Dates VEROJEAN ORTEZ , SOFTWARE SALES EXECUTIVE Primary Care Provider Active Start: July 24, 2024 End: July 24, 2024 Dr. Ralph Singh MD Attending Provider Active Start: July 24, 2024 End: July 24, 2024 Dr. Ralph Singh MD Referring Provider Active Start: July 24, 2024 End: July 24, 2024 Team Status: Inactive Member Role Status Dates VERO MAST , SOFTWARE SALES EXECUTIVE Primary Care Provider Active Start: July 28, 2024 End: July 28, 2024 VERO MAST , SOFTWARE SALES EXECUTIVE Referring Provider Active Sta rt: July 28, 2024 End: July 28, 2024 Dr. Ralph Singh MD Attending Provider Active Start: July 28, 2024 End: July 28, 2024 Team Status: Inactive Member Role Status Dates VERO MAST , SOFTWARE SALES EXECUTIVE Primary Care Provider Active Start: July 29, 2024 End: July 29, 2024 Dr. Brayan Cast DO Attending Provider Active Start: July 29, 2024 End: July 29, 2024 Dr. Brayan Cast DO Referring Provider Active Start: July 29, 2024 End: July 29, 2024 Team Status: Active Member Role Status Dates VERO ORTEZ SOFTWARE SALES EXECUTIVE Primary Care Provider Active Start: July 29, 2024 Dr. Brayan Cast DO Attending Provider Active Start: July 29, 2024 Dr. Brayan Cast DO Referring Provider Active Start: July 29, 2024 Dr. Brayan Cast DO Other Provider Active St art: July 29, 2024 Team Status: Inactive Member Role Status Dates VERO MAST , SOFTWARE SALES EXECUTIVE Primary Care Provider Active Start: September 04, 2024 End: September 04, 2024 VERO MAST , SOFTWARE SALES EXECUTIVE Referring Provider Active Sta rt: September 04, 2024 End: September 04, 2024 DAVID Granado Attending Provider Active Start: September 04, 2024 End: September 04, 2024 Team Status: Inactive Member Role Status Dates VERO MAST , SOFTWARE SALES EXECUTIVE Primary Care Provider Active Start: September 24, 2024 End: September 24, 2024 VERO MAST , SOFTWARE SALES EXECUTIVE Referring Provider Active Sta rt: September 24, 2024 End: September 24, 2024 DAVID Rebollar Attending Provider Active Start: September 24, 2024 End: September 24, 2024 Team Status: Active Member Role Status Dates VERO ORTEZ SOFTWARE SALES EXECUTIVE Primary Care Provider Active Start: September 24, 2024 Dr. Scott Berrios MD Attending Provider Active Start: September 24, 2024 Dr. Scott Berrios MD Referring Provider Active Start: September 24, 2024 Team Status: Active Member Role Status Dates VERO ORTEZ SOFTWARE SALES EXECUTIVE Primary Care Provider Active Start: September 28, 2024 Elsa José LICENSED EMBALMER SUPERVISOR-C Attending Provider Active Start: September 28, 2024 Elsa José LICENSED EMBALMER SUPERVISOR-C Referring Provider Active Start: September 28, 2024 Team Status: Inactive Member Role Status Dates VEROJEAN ORTEZ SOFTWARE SALES EXECUTIVE Primary Care Provider Active Start: September 30, 2024 End: September 30, 2024 Dr. Steven Mercado DO Emergency Provider Active Start: September 30, 2024 End: September 30, 2024 Team Status: Inactive Member Role Status Dates VEROJEAN ORTEZ SOFTWARE SALES EXECUTIVE Primary Care Provider Active Start: September 28, 2024 End: September 28, 2024 Elsa José LICENSED EMBALMER SUPERVISOR-C Attending Provider Active Start: September 28, 2024 End: September 28, 2024 Elsa José NP-C Referring Provider Active Start: September 28, 2024 End: September 28, 2024 Team Status: Active Member Role Status Dates VEROJEAN ORTEZ SOFTWARE SALES EXECUTIVE Primary Care Provider Active Start: October 05, 2024 Elsa José LICENSED EMBALMER SUPERVISOR-C Attending Provider Active Start: October 05, 2024 Elsa José LICENSED EMBALMER SUPERVISOR-C Referring Provider Active Start: October 05, 2024 Team Status: Active Member Role Status Dates VERO MAST SOFTWARE SALES EXECUTIVE Primary Care Provider Active Start: October 06, 2024 Elsa José LICENSED EMBALMER SUPERVISOR-C Attending Provider Active Start: October 06, 2024 Elsa José LICENSED EMBALMER SUPERVISOR-C Referring Provider Active Start: October 06, 2024 Team Status: Inactive Member Role Status Dates VERO ORTEZ SOFTWARE SALES EXECUTIVE Primary Care Provider Active Start: September 24, 2024 End: September 24, 2024 Dr. Scott Berrios MD Attending Provider Active Start: September 24, 2024 End: September 24, 2024 Dr. Scott Berrios MD Referring Provider Active Start: September 24, 2024 End: September 24, 2024 Team Status: Inactive Member Role Status Dates BROCK KWANNP Primary Care Provider Active Start: September 30, 2024 End: September 30, 2024 Dr. Steven Mercado , Attending Provider Active Start: September 30, 2024 [...] Status: Active Member Role Status Dates VERO ORTEZ SOFTWARE SALES EXECUTIVE Primary Care Provider Active Start: October 14, 2024 Elsa José NP-C Referring Provider Active Start: October 14, 2024 DAVID Granado Other Provider Active St art: October 14, 2024 Dr. Alberto Qiu , Attending Provider Active S tart: October 14, 2024 Team Status: Inactive Member Role Status Dates BROCK KWANNP Primary Care Provider Active Start: October 06, 2024 End: October 06, 2024 Elsa José NP-C Attending Provider Active Start: October 06, 2024 End: October 06, 2024 Elsa José NP-C Referring Provider Active Start: October 06, 2024 End: October 06, 2024 Team Status: Inactive Member Role Status Dates VERO ORTEZ SOFTWARE SALES EXECUTIVE Primary Care Provider Active Start: October 23, 2024 End: October 23, 2024 Elsa José NP-C Attending Provider Active Start: October 23, 2024 End: October 23, 2024 Elsa José NP-C Referring Provider Active Start: October 23, 2024 End: October 23, 2024 Team Status: Inactive Member Role Status Dates VERO ORTEZ SOFTWARE SALES EXECUTIVE Primary Care Provider Active Start: October 30, 2024 End: October 30, 2024 BROCK KWANNP Referring Provider Active Sta rt: October 30, 2024 End: October 30, 2024 Elsa M Rufener , LICENSED EMBALMER SUPERVISOR-C Attending Provider Active Start: October 30, 2024 End: October 30, 2024 Team Status: Inactive Member Role Status Dates DARLING KWAN Primary Care Provider Active Start: November 03, 2024 End: November 03, 2024 Dr. Velasquez Hill , DO Emergency Provider Active Start: November 03, 2024 End: November 03, 2024 Lodge Attendant Relationship Specialty Start Date End Date Papa Douglass MD [address] [place], [place] [id number] PCP - General Family Medicine 04/27/10 Vero Ortez CNP [address] [place] [id number] Referring Family Medicine 04/07/24 Coco Waters APRN.CASTING ASSISTANT [address] [place] [id number] Wireworker Family Medicine 06/28/24 12/02/24 Feliciano Nunez APRN.CASTING ASSISTANT [address] [place], [place] [id number] Wireworker Family Medicine 07/07/24 Lodge Attendant Relationship Specialty Start Date End Date Vero Ortez NP PCP - General Nurse Practitioner - Adult Health 04/16/24 Joseluis Riggins MB [facility] [address] [place], [place] [phone] Oncologist Medical Oncology 04/16/24 Natalya Saavedra, RN Registered Nurse 04/16/24 Rylee Weaver LSW Concrete Layer Social Work 04/20/24 Bruna Frey LISW Concrete Layer 04/20/24 Jaziel Drake MD Shield Runner Nurse Practitioner - Family 05/07/24 Lodge Attendant Relationship Specialty Start Date End Date Vero Ortez, LICENSED EMBALMER SUPERVISOR PCP - General Nurse Practitioner - Adult Health 04/16/24 Joseluis Riggins MB [facility] [address] [place] [address] Oncologist Medical Oncology 04/16/24 Natalya Saavedra, ALFONZO Registered Nurse 04/16/24 Rylee Weaver, LICENSED PROFESSIONAL COUNSELOR Concrete Layer Social Work 04/20/24 Bruna Frey, PRECISION STRUCTURAL METAL FITTER Concrete Layer 04/20/24 Jaziel Drake MD Shield Runner Nurse Practitioner - Family 05/07/24 Team Status: [...] BROCK KWANNP Primary Care Provider Active Start: December 30, 2024 End: December 30, 2024 VERO ORTEZ SOFTWARE SALES EXECUTIVE Referring Provider Active Sta rt: December 30, 2024 End: December 30, 2024 Neal CUELLAR, PA Attending Provider Active Start: December 30, 2024 End: December 30, 2024 Lodge Attendant Relationship Specialty Start Date End Date Vero Ortez LICENSED EMBALMER SUPERVISOR PCP - General Nurse Practitioner - Adult Health 04/16/24 Joseluis Riggins MB [facility] [address] [place] [address] Oncologist Medical Oncology 04/16/24 Natalya Saavedra, ALFONZO Registered Nurse 04/16/24 Rylee Weaver, OSCAR Concrete Layer Social Work 04/20/24 Bruna Frey LISW Concrete Layer 04/20/24 Jaziel Drake MD Shield Runner Nurse Practitioner - Family 05/07/24 Team Status: Active Member Role Status Dates DARLING KWAN Primary Care Provider Active Start: October 05, 2024 Dr. Alberto Qiu , Attending Provider Active S tart: October 05, 2024 Elsa José , LICENSED EMBALMER SUPERVISOR-C Referring Provider Active Start: October 05, 2024 Team Status: Active Member Role Status Dates DARLING KWAN Primary Care Provider Active Start: January 11, 2025 Dr. Jacobo Solorzano , Emergency Provider Activ e Start: January 11, 2025 Dr. Amadou Arthur , Admit Provider Active Start: January 11, 2025 Dr. Amadou Arthur , Attending Provider Active Start: January 11, 2025 Goals (unrecognized section and content) Goals may [...] section and content) DATE CREATED AUTHOR 03/22/2024 [facility] ([place]) DATE CREATED AUTHOR AUTHOR'S ORGANIZ ATION 06/17/2024 [facility] DATE CREATED AUTHOR AUTHOR'S ORGANIZ ATION 12/06/[address] [facility] DATE CREATED AUTHOR AUTHOR'S ORGANIZ ATION 12/20/2024 [facility] DATE CREATED AUTHOR AUTHOR'S ORGANIZ ATION 01/08/2025 [facility] DATE CREATED AUTHOR AUTHOR'S ORGANIZ ATION 01/10/2025 [facility] FOR RECORDS PERTAINING TO PATIENTS WHO ARE [...] BE BASED ON THE PRIMARY CLINICAL RECORDS. [employer] [facility]. provides no warranty or guarantee of the accuracy or completeness of information in this document.
[2025-01-11 01:31] LABS: Magnesium 1.8 mg/dL (1.5-2.2)
[2025-01-11] MEDS: KCL 20MEQ in 0.9% NS 20 MEQ/1,000 ML IV.SOLN. 70 MEQ IV (01:50)
[2025-01-11] MEDS: Lactulose 20 GM/30 ML UDC PO (01:55)
[2025-01-11] MEDS: Insulin Glargine-YFGN 100 UNIT/ML Pen 20 UNIT SC (02:01)
[2025-01-11 02:23] LABS: Bedside Glucose 378 mg/dL (74-106)
[2025-01-11 02:41] LABS: Reflex Lactate? Y
[2025-01-11 03:28] LABS: Absolute Lymphocyte Count 2.62 X10^3/uL (0.83-4.51); Absolute Neutrophil Count 7.2 X10^3/uL (2.0-7.7); Basophil# 0.06 X10^3/uL; Basophil% 0.5 % (0-1); Eosinophil# 0.14 X10^3/uL; Eosinophils% 1.3 % (0-5); Hematocrit 36.7 % (37-47); Hemoglobin 11.5 g/dL (12.0-15.0); Lymphocyte # 2.62 X10^3/ul (0.83-4.51); Lymphocyte % 23.8 % (19-41); Mean Corp Hgb Conc 31.3 g/dL (32-36); Mean Corpuscular Hgb 25.3 pg (27.0-32.0); Mean Corpuscular Volume 80.8 fL (81-99); Mean Platelet Vol. 9.7 fl (6.2-12.0); Monocyte# 0.54 X10^3/uL; Monocyte% 4.9 % (0-10); NRBC Flagged by Analyzer 0 % (0-5); Neutrophil # 7.21 X10^3/uL (2.7-7.7); Neutrophil % 65.4 % (47-70); Platelet Count 178 K/mm3 (150-450); RBC Distribution Width CV 15.5 % (11.6-14.6); RBC Distribution Width SD 45.2 fl (35.1-43.9); Red Blood Count 4.54 M/mm3 (4.2-5.4)
[2025-01-11 03:56] LABS: Lactic Acid 1.4 mmol/L (0.0-2.0)
[2025-01-11 04:03] LABS: ALB/GLOB Ratio 0.9 RATIO (0.9-2.4); AST(SGOT) 83 U/L (<=31); Alanine Aminotransfer ALT/SGPT 132 U/L (<=34); Alkaline Phosphatase 247 U/L (35-104); Anion Gap 9 (5-15); BUN 16 mg/dL (4-19); BUN/Creat Ratio 21.1 RATIO (10-20); Chloride 97 mmol/L (98-108); Creatinine, Serum 0.77 mg/dL (0.70-1.20); EST Glomerular Filtration Rate 90 (>60); Estimated Creatinine Clearance 92.08 ml/min (50-250); Ferritin 123 ng/mL (22-378); Globulin 3.5 g/dL (2.2-4.2); Glucose 395 mg/dL (70-99); Iron 44 ug/dL (50-170); Iron Binding Capacity,Unsat 194 ug/dL (228-428); Phosphorus 4.8 mg/dL (2.7-4.5); Potassium 4.9 mmol/L (3.3-5.1); Protein, Total 6.5 g/dL (5.9-8.4); Sodium Level 131 mmol/L (133-145); Thyroid Stim Hormone (TSH) 0.373 uIU/mL (0.300-4.200); Total Bilirubin 0.38 mg/dL (0.00-1.30)
--- NOTE | 2025-01-11 04:50 | CPS ---
Patient declined CPAP use for this stay
[2025-01-11] MEDS: Ondansetron 4 MG/2 ML Vial IV (05:23)
[2025-01-11] MEDS: 0.9% Saline Lock 10 ML Syringe IV (05:24)
[2025-01-11 05:53] LABS: Iron Binding Capacity,Total 238 ug/dL (250-450); PERCENT IRON SATURATION 18.5 % (13-59)
[2025-01-11] MEDS: Levothyroxine 100 MCG Tablet 200 MCG PO (06:13)
[2025-01-11] MEDS: Sucralfate 1 GM Tablet PO ×3 (06:13→22:56)
[2025-01-11] MEDS: Acetaminophen 325 MG Tablet 650 MG PO ×2 (06:13→17:30)
[2025-01-11] MEDS: Gabapentin 300 MG Capsule PO ×2 (06:14→22:57)
[2025-01-11] MEDS: Insulin Lispro 100 UNIT/ML INSULN.PEN SC ×4 (06:37→22:57)
[2025-01-11 06:58] LABS: Bedside Glucose 348 mg/dL (74-106)
[2025-01-11 06:58] LABS: Bedside Glucose 323 mg/dL (74-106)
--- NOTE | 2025-01-11 07:22 | PCM.PN.HOSP ---
Reason for Visit Reason for Visit: Diagnoses Bandemia (01/11/25) Type 2 diabetes mellitus with hyperglycemia (01/11/25) Morbid (severe) obesity due to excess calories (01/11/25) Constipation, unspecified (01/11/25) Acute cystitis without hematuria (01/11/25) Adverse effect of unspecified drugs, medicaments and biological substances, initial encounter (01/11/25) Body mass index [BMI] 45.0-49.9, adult (01/11/25) detention (current) use of insulin (01/11/25) Personal history of COVID-19 (01/11/25) Subjective Subjective Complaining of nausea and vomiting. Objective Data Objective Data Vital Signs: Vital Signs Temp Pulse Resp BP Pulse Ox O2 Del Method O2 Flow Rate 37.8 C H 102 H 20 H 138/75 H 96 Nasal Cannula 3 01/11/25 05:54 01/11/25 05:54 01/11/25 05:54 01/11/25 05:54 01/11/25 05:54 01/11/25 06:10 01/11/25 06:10 Oxygen Flow Rate (L/min) 3 Oxygen Delivery Method Nasal Cannula Weight: 111.4 kg Body Mass Index (BMI) 46.3 Intake & Output: Intake and Output for Last 24 Hours 01/09/25 01/10/25 01/11/25 23:59 23:59 23:59 Intake Total 1050 / 1050 Balance 1050 / 1050 Lab / Micro Data 01/11/25 03:03 01/11/25 03:03 Labs: Laboratory Results - last 24 hr 01/10/25 22:30: Urine Color Yellow, Urine Clarity Cloudy, Urine pH 6.0, Ur Specific [place] 1.015, Urine Protein 30 H, Urine Glucose (UA) 1000 H, Urine Ketones Negative, Urine Occult Blood 150 H, Urine Nitrite Negative, Urine Bilirubin Negative, Urine Urobilinogen Normal, Ur Leukocyte Esterase 500 H, Urine RBC 0-5 SEEN, Urine WBC 50-100 SEEN, Ur Squamous Epith Cells 0 SEEN, Urine Bacteria 4+, Urine Mucus 0 SEEN 01/10/25 22:37: WBC 16.5 H, RBC 5.04, Hgb 12.9, Hct 40.4, MCV 80.2 L, MCH 25.6 L, MCHC 31.9 L, RDW Std Deviation 45.1 H, RDW Coeff of [place] 15.7 H, Plt Count 236, MPV 10.1, Immature Gran % (Auto) 4.600 H, Neut % (Auto) 65.9, Lymph % (Auto) 19.6, Harris % (Auto) 8.1, Eos % (Auto) 1.3, Baso % (Auto) 0.5, Absolute Neuts (auto) 10.9 H, Absolute Lymphs (auto) 3.24, Nucleated RBC % 0, Sodium 130 L, Potassium 5.1, Chloride 94 L, Carbon Dioxide 25.0, Anion Gap 11, BUN 15, Creatinine 0.87, Estim Creat Clear Calc 81.25, Est GFR (MDRD) Non-Af 78, BUN/Creatinine Ratio 17.3, Glucose 486 H*, Lactic Acid 2.0, Calcium 9.4, Magnesium 1.8 01/11/25 00:40: POC Glucose 329 H 01/11/25 02:00: POC Glucose 378 H 01/11/25 03:03: WBC 11.0, RBC 4.54, Hgb 11.5 L, Hct 36.7 L, MCV 80.8 L, MCH 25.3 L, MCHC 31.3 L, RDW Std Deviation 45.2 H, RDW Coeff of [place] 15.5 H, Plt Count 178, MPV 9.7, Immature Gran % (Auto) 4.100 H, Neut % (Auto) 65.4, Lymph % (Auto) 23.8, Harris % (Auto) 4.9, Eos % (Auto) 1.3, Baso % (Auto) 0.5, Absolute Neuts (auto) 7.2, Absolute Lymphs (auto) 2.62, Nucleated RBC % 0, Sodium 131 L, Potassium 4.9, Chloride 97 L, Carbon Dioxide 25.0, Anion Gap 9, BUN 16, Creatinine 0.77, Estim Creat Clear Calc 92.08, Est GFR (MDRD) Non-Af 90, BUN/Creatinine Ratio 21.1 H, Glucose 395 H, Lactic Acid 1.4, Calcium 9.0, Phosphorus 4.8 H, Iron 44 L, TIBC 238 L, Iron Saturation 18.5, Unsaturated IBC 194 L, Ferritin 123, Total Bilirubin 0.38, AST 83 H, ALT 132 H, Alkaline Phosphatase 247 H, Total Protein 6.5, Albumin 3.0 L, Globulin 3.5, Albumin/Globulin Ratio 0.9, TSH 0.373 01/11/25 05:19: POC Glucose 348 H 01/11/25 06:32: POC Glucose 323 H Radiography Diagnostic Testing: Radiology Impression Abdomen/Pelvis CT 01/10/25 22:21 IMPRESSION: No acute intra-abdominal process. Hepatosplenomegaly. Status post cholecystectomy. Fecal stasis, a component of constipation. Reading Location: [place] [address] Physical Exam Const alert Constitutional Narrative: slightly uncomfortable. HEENT head/scalp atraumatic and moist oral mucous membranes Resp normal respiratory effort, no retractions, no use of accessory muscles and clear to auscultation bilaterally Cardio regular rate, regular rhythm, S1 normal heart sound and S2 normal heart sound GI normal to inspection, nondistended, normoactive bowel sounds, soft to palpation, non-tender and non-distended Neuro Sensorium / Orientation: awake and alert Assessment & Plan Assessment/Plan (1) Urinary tract infection: PLAN: on CTX. Follow up final culture results. 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 a1c 11.4. Will recheck. On SSI. Resume U500 (3) Constipation: QUALIFIERS: Constipation type: unspecified constipation type Qualified Code(s): K59.00 - Constipation, unspecified PLAN: Add dulcolax, Miralax. (4) Nausea & vomiting: PLAN: supportive mgmt. PLAN: Plan Chronic conditions: obesity class III: complicates care and recovery. anemia: on ferrous sulfate depression: fluoxetine hypothyoidism: levothyroxine GERD: PPI, sucralfate VTE prophylaxis: LMWH Charges/Coding Visit Charges Inpatient E&M: 70713 Subs Hosp L2
[2025-01-11 07:23] LABS: Hemoglobin A1c 12.2 % (<=5.6)
--- NOTE | 2025-01-11 07:44 | NURSING ---
Pt was having chills, nausea, and feeling weak this morning. Blood sugar 323. Temp 100.1. Tylenol and zofran were given. Later pt called out to go to the bathroom and was having difficulty getting up without weakness. Pt vomited when back to bed. Dr. Vivas contacted
[2025-01-11] MEDS: Ergocalciferol 1.25 MG (50, 000 UNIT) Capsule PO (10:42)
[2025-01-11] MEDS: Bisacodyl 5 MG Tablet 10 MG PO (10:42)
[2025-01-11] MEDS: Polyethylene Glycol 3350 17 GM PACKET PO (10:42)
[2025-01-11] MEDS: Enoxaparin 40 MG/0.4 ML Syringe SC ×2 (10:43→22:58)
[2025-01-11] MEDS: Fluoxetine HCl 40 MG CAPSULE PO (10:43)
[2025-01-11] MEDS: Pantoprazole Sodium 40 MG Tablet PO ×2 (10:43→22:58)
--- NOTE | 2025-01-11 10:52 | CASEMGMT ---
ALFONZO WHATLEY Assessment: Face to Face with pt for initial transition planning/care coordination assessment. ALFONZO WHATLEY introduced self and role at [facility], pt voices understanding and consents to assessment. Pt is A&O x4 and answers all questions appropriately at this time. Pt lying in bed with oxygen on in no distress. Pt needed awakened multiple times throughout assessment. Care providers, pharmacy, and demographics verified/updated. Admitting Dx: UTI, leukocytosis, hyperglycemia Strata Score: 3 PCP:Neelima Specialists:[facility] onc; enio Qiu Preferred Pharmacy: [facility] Insurance: [employer] Prescription Benefit: yes LNOK: Tj Montejo, brother Living Arrangements: Pt lives alone in a single story apt with 5 steps to enter. Pt reports she is I in ADL/IADLs and denies concerns at home. Transportation: Pt drives self and denies concerns with transportation. DME:O2 through [employer], pt has portable tank in room, CPAP, BGM with sufficient supply of strips and lancets. Pt reports she has sufficient supply of insulin. HHC/SNF: Denies hx of Pt states no concerns with going home at time of dc. Pt states no further concerns/needs. CM to follow. Advised pt to ask CM if any further questions/concerns/needs arise, voices understanding. Pt Goal: Home Plan: Home, monitor for change in oxygen rx [place] [facility] [place]. Taz MEJÍA CM
[2025-01-11 11:18] LABS: Hemoglobin A1c 12.2 % (<=5.6)
[2025-01-11 11:35] LABS: Bedside Glucose 363 mg/dL (74-106)
[2025-01-11] MEDS: Insulin U-500 UNITS/ML PEN 100 UNITS SC ×2 (11:40→16:34)
[2025-01-11 14:18] LABS: Bedside Glucose 347 mg/dL (74-106)
--- NOTE | 2025-01-11 15:21 | CHAPLAIN ---
Type of Pastoral Visit ___ Initial Visit ___ Follow-up Visit ___ On-call Visit ___ General Patient Visit ___ Spiritual Assessment ___ Family Conference ___ Bereavement ___ Rapid Response ___ Code Blue ___ Other (describe below) Pastoral Care Referral From ___ Patient ___ Family ___ Nurse ___ Physician ___ Process Description Writer ___ Asphalt Distributor Tender ___ Other (describe below) Sacrament/Intervention ___ Active listening ___ Anointing ___ Roman Catholic ___ Bereavement ___ Communion ___ Gauri exploration ___ ___ Life review ___ Prayer ___ Reconciliation ___ Sacrament of Sick ___ Supportive presence ___ Wedding ___ Other (describe below) Pastoral Comments patient is sleeping and does not awaken easily; will try back tomorrow
[2025-01-11] MEDS: 0.9% Normal Saline (1000mL) 1,000 ML 150 ML IV (16:47)
[2025-01-11 16:50] LABS: Bedside Glucose 287 mg/dL (74-106)
[2025-01-11] MEDS: Albuterol 2.5 MG/3 ML VIAL.NEB. INHALATION (18:01)
[2025-01-11] MEDS: Budesonide Respules 0.5 MG/2 ML AMPUL.NEB. INHALATION (18:02)
[2025-01-11] MEDS: Ceftriaxone 1 GM/50 ML BAG IV (22:57)
[2025-01-11] MEDS: Fenofibrate 48 MG Tablet PO (22:58)
[2025-01-11 23:23] LABS: Bedside Glucose 231 mg/dL (74-106)
[2025-01-12] VITALS (11 sets, daily range): BP systolic 111–125; BP diastolic 49–65; PULSE 91–100; RESP 16–22; TEMP 36.1–37; O2SAT 95–99; BMI 46.7
[2025-01-12 06:32] LABS: Absolute Lymphocyte Count 1.96 X10^3/uL (0.83-4.51); Absolute Neutrophil Count 10.2 X10^3/uL (2.0-7.7); Basophil# 0.03 X10^3/uL; Basophil% 0.2 % (0-1); Eosinophils% 1.5 % (0-5); Hematocrit 33.4 % (37-47); Hemoglobin 10.4 g/dL (12.0-15.0); Lymphocyte # 1.96 X10^3/ul (0.83-4.51); Lymphocyte % 14.4 % (19-41); Mean Corp Hgb Conc 31.1 g/dL (32-36); Mean Corpuscular Hgb 25.6 pg (27.0-32.0); Mean Corpuscular Volume 82.1 fL (81-99); Mean Platelet Vol. 10.4 fl (6.2-12.0); Monocyte# 1.02 X10^3/uL; Monocyte% 7.5 % (0-10); NRBC Flagged by Analyzer 0 % (0-5); Neutrophil # 10.24 X10^3/uL (2.7-7.7); Neutrophil % 74.9 % (47-70); Platelet Count 147 K/mm3 (150-450); RBC Distribution Width CV 15.8 % (11.6-14.6); RBC Distribution Width SD 47.1 fl (35.1-43.9); Red Blood Count 4.07 M/mm3 (4.2-5.4); White Blood Count 13.7 K/mm3 (4.4-11.0)
[2025-01-12 06:46] LABS: Anion Gap 8 (5-15); BUN 20 mg/dL (4-19); BUN/Creat Ratio 24.2 RATIO (10-20); Calcium,Total 8.9 mg/dL (7.6-11.0); Carbon Dioxide 24.5 mmol/L (21.0-32.0); Chloride 105 mmol/L (98-108); Creatinine, Serum 0.81 mg/dL (0.70-1.20); EST Glomerular Filtration Rate 84 (>60); Estimated Creatinine Clearance 87.96 ml/min (50-250); Glucose 134 mg/dL (70-99); Potassium 4.5 mmol/L (3.3-5.1); Sodium Level 138 mmol/L (133-145)
[2025-01-12] MEDS: Gabapentin 300 MG Capsule PO ×3 (07:00→21:51)
[2025-01-12] MEDS: Sucralfate 1 GM Tablet PO ×4 (07:00→21:35)
[2025-01-12] MEDS: Levothyroxine 100 MCG Tablet 200 MCG PO (07:00)
[2025-01-12] MEDS: Albuterol 2.5 MG/3 ML VIAL.NEB. INHALATION ×3 (07:10→18:30)
[2025-01-12] MEDS: Budesonide Respules 0.5 MG/2 ML AMPUL.NEB. INHALATION ×2 (07:10→18:30)
[2025-01-12 07:27] LABS: Bedside Glucose 126 mg/dL (74-106)
--- NOTE | 2025-01-12 07:37 | PN.HOSP_ITS ---
Reason for Visit Reason for Visit: Diagnoses Bandemia (01/11/25) Type 2 diabetes mellitus with hyperglycemia (01/11/25) Morbid (severe) obesity due to excess calories (01/11/25) Constipation, unspecified (01/11/25) Acute cystitis without hematuria (01/11/25) Urinary tract infection, site not specified (01/11/25) Nausea with vomiting, unspecified (01/11/25) Adverse effect of unspecified drugs, medicaments and biological substances, initial encounter (01/11/25) Body mass index [BMI] 45.0-49.9, adult (01/11/25) prison (current) use of insulin (01/11/25) Personal history of COVID-19 (01/11/25) Subjective Subjective Feeling much better. Objective Data Objective Data Vital Signs: Vital Signs Temp Pulse Resp BP Pulse Ox O2 Del Method O2 Flow Rate 36.4 C L 93 20 H 118/49 L 99 Nasal Cannula 3 01/12/25 02:35 01/12/25 02:35 01/12/25 02:35 01/12/25 02:35 01/12/25 02:35 01/12/25 02:35 01/12/25 02:35 Oxygen Flow Rate (L/min) 3 Oxygen Delivery Method Nasal Cannula Weight: 112.3 kg Body Mass Index (BMI) 46.7 Intake & Output: Intake and Output for Last 24 Hours 01/10/25 01/11/25 01/12/25 23:59 23:59 23:59 Intake Total 0 / 2049 1050 / 1050 Output Total 200 / 200 Balance 1850 / 1850 1050 / 1050 Lab / Micro Data 01/12/25 05:40 01/12/25 05:40 Labs: Laboratory Results - last 24 hr 01/11/25 08:20: Hemoglobin A1c 12.2 H 01/11/25 11:16: POC Glucose 363 H 01/11/25 13:58: POC Glucose 347 H 01/11/25 16:29: POC Glucose 287 H 01/11/25 22:55: POC Glucose 231 H 01/12/25 05:40: WBC 13.7 H, RBC 4.07 L, Hgb 10.4 L, Hct 33.4 L, MCV 82.1, MCH 25.6 L, MCHC 31.1 L, RDW Std Deviation 47.1 H, RDW Coeff of [place] 15.8 H, Plt Count 147 L, MPV 10.4, Immature Gran % (Auto) 1.500 H, Neut % (Auto) 74.9 H, L ymph % (Auto) 14.4 L, [place] % (Auto) 7.5, Eos % (Auto) 1.5, Baso % (Auto) 0.2, A bsolute Neuts (auto) 10.2 H, Absolute Lymphs (auto) 1.96, Nucleated RBC % 0, Sodium 138, Potassium 4.5, Chloride 105, Carbon Dioxide 24.5, Anion Gap 8, BUN 20 H, Creatinine 0.81, Estim Creat Clear Calc 87.96, Est GFR (MDRD) Non-Af 84, B UN/Creatinine Ratio 24.2 H, Glucose 134 H, Calcium 8.9 01/12/25 07:01: POC Glucose 126 H Micro: Microbiology 01/11/25 10:30 Stool Stool Occult Blood (SHAHEEN) - Final Occult Blood Positive Physical Exam Const alert and no apparent distress HEENT head/scalp atraumatic and moist oral mucous membranes Resp normal respiratory effort, no retractions, no use of accessory muscles and clear to auscultation bilaterally Cardio regular rate, regular rhythm, S1 normal heart sound and S2 normal heart sound GI normal to inspection, nondistended, normoactive bowel sounds, soft to palpation and non-tender Extremity normal to inspection and full ROM Neuro Sensorium / Orientation: awake and alert Psych affect normal Assessment & Plan Assessment/Plan (1) Urinary tract infection: PLAN: on CTX. Follow up final culture results, thus far showing GNR. (2) Hyperglycemia due to type 2 diabetes mellitus: QUALIFIERS: Diabetes mellitus shelter insulin use: with termite control technician use Qualified Code(s): E11.65 - Type 2 diabetes mellitus with hyperglycemia; Z79.4 - tank terminal gauger (current) use of insulin PLAN: poorly controlled. Previous a1c 11.4. Recheck 12.2. On SSI. Resume U500 Is established with endocrinology and a1c went from 7.2 (04/2024) to 11.4. Patient had been missing doses. (3) Constipation: QUALIFIERS: Constipation type: unspecified constipation type Q ualified Code(s): K59.00 - Constipation, unspecified PLAN: Add dulcolax, Miralax. (4) Nausea & vomiting: PLAN: supportive mgmt. PLAN: Plan Chronic conditions: * obesity class III: complicates care and recovery. * anemia: on ferrous sulfate. Heme positive stools. Did have colonoscopy on the 07/29: stool in the recto-sigmoid colon, simoid and descending colon, transverse colon and in the cecum. * depression: fluoxetine * hypothyroidism: levothyroxine * GERD: PPI, sucralfate * Neuroendocrine tumor of the stomach. Was referred to [facility] for further evaluation by [facility]. VTE prophylaxis: LMWH Disposition: pending final culture results. Charges/Coding Visit Charges Inpatient E&M: 77808 Subs Hosp L2
[2025-01-12] MEDS: Insulin U-500 UNITS/ML PEN 100 UNITS SC ×3 (08:17→16:34)
[2025-01-12] MEDS: Pantoprazole Sodium 40 MG Tablet PO ×2 (08:17→21:35)
[2025-01-12] MEDS: Fluoxetine HCl 40 MG CAPSULE PO (08:17)
[2025-01-12] MEDS: Polyethylene Glycol 3350 17 GM PACKET PO (08:18)
[2025-01-12] MEDS: Enoxaparin 40 MG/0.4 ML Syringe SC ×2 (08:18→21:35)
[2025-01-12] MEDS: Ferrous Sulfate 325 MG Tablet PO (11:18)
[2025-01-12] MEDS: Insulin Lispro 100 UNIT/ML INSULN.PEN SC ×2 (11:19→21:55)
[2025-01-12 11:41] LABS: Bedside Glucose 299 mg/dL (74-106)
--- NOTE | 2025-01-12 15:12 | CHAPLAIN ---
Type of Pastoral Visit _x__ Initial Visit ___ Follow-up Visit ___ On-call Visit ___ General Patient Visit ___ Spiritual Assessment ___ Family Conference ___ Bereavement ___ Rapid Response ___ Code Blue ___ Other (describe below) Pastoral Care Referral From _x__ Patient ___ Family ___ Nurse ___ Physician ___ Ergonomist ___ Cone Chocolate Dipper ___ Other (describe below) Sacrament/Intervention _x__ Active listening ___ Anointing ___ Confucianism ___ Bereavement ___ Communion _x__ Gauri exploration ___ _x__ Life review _x__ Prayer ___ Reconciliation ___ Sacrament of Sick _x__ Supportive presence ___ Wedding ___ Other (describe below) Pastoral Comments patient is feeling better today she states; pt remembers this aluminum pourer from a previous admission; pt says that she has gone to a different restorationism now but has not been able to make services due to her health; pt speaks of her support system which is severely limited with the exception of some restorationism friends and neighbors; patient has specific prayer requests that she makes to this aluminum pourer; time to listen, affirm, and be prayerful
[2025-01-12 16:55] LABS: Bedside Glucose 119 mg/dL (74-106)
[2025-01-12] MEDS: Ceftriaxone 1 GM/50 ML BAG IV (21:36)
[2025-01-12] MEDS: Fenofibrate 48 MG Tablet PO (21:42)
[2025-01-12] MEDS: Acetaminophen 325 MG Tablet 650 MG PO (21:50)
[2025-01-12 23:17] LABS: Bedside Glucose 185 mg/dL (74-106)
[2025-01-13] VITALS (8 sets, daily range): BP systolic 103–122; BP diastolic 58–74; PULSE 75–85; RESP 16–19; TEMP 36.6–36.7; O2SAT 95–99; BMI 46.3
[2025-01-13] MEDS: Sucralfate 1 GM Tablet PO (05:51)
[2025-01-13] MEDS: Gabapentin 300 MG Capsule PO ×2 (05:51→14:05)
[2025-01-13] MEDS: Levothyroxine 100 MCG Tablet 200 MCG PO (05:51)
[2025-01-13] MEDS: Albuterol 2.5 MG/3 ML VIAL.NEB. INHALATION ×2 (06:41→13:54)
[2025-01-13] MEDS: Budesonide Respules 0.5 MG/2 ML AMPUL.NEB. INHALATION (06:41)
[2025-01-13 06:58] LABS: Bedside Glucose 93 mg/dL (74-106)
--- NOTE | 2025-01-13 07:36 | PN.HOSP_ITS ---
Reason for Visit Reason for Visit: Diagnoses Bandemia (01/11/25) Type 2 diabetes mellitus with hyperglycemia (01/11/25) Morbid (severe) obesity due to excess calories (01/11/25) Constipation, unspecified (01/11/25) Acute cystitis without hematuria (01/11/25) Urinary tract infection, site not specified (01/11/25) Nausea with vomiting, unspecified (01/11/25) Adverse effect of unspecified drugs, medicaments and biological substances, initial encounter (01/11/25) Body mass index [BMI] 45.0-49.9, adult (01/11/25) retirement (current) use of insulin (01/11/25) Personal history of COVID-19 (01/11/25) Objective Data Objective Data Vital Signs: Vital Signs Temp Pulse Resp BP Pulse Ox O2 Del Method O2 Flow Rate 36.6 C 79 18 122/74 H 98 Nasal Cannula 2 01/13/25 03:59 01/13/25 06:42 01/13/25 06:42 01/13/25 03:59 01/13/25 06:42 01/13/25 06:42 01/13/25 06:42 Oxygen Flow Rate (L/min) 2 Oxygen Delivery Method Nasal Cannula Weight: 111.2 kg Body Mass Index (BMI) 46.3 Intake & Output: Intake and Output for Last 24 Hours 01/11/25 01/12/25 01/13/25 23:59 23:59 23:59 Intake Total 2049 50 / 50 Output Total 200 / 200 Balance 1850 / 1850 2009 50 / 50 Lab / Micro Data 01/12/25 05:40 01/12/25 05:40 Labs: Laboratory Results - last 24 hr 01/12/25 11:16: POC Glucose 299 H 01/12/25 16:33: POC Glucose 119 H 01/12/25 21:50: POC Glucose 185 H 01/13/25 06:41: POC Glucose 93 Micro: Microbiology 01/10/25 22:30 Urine, Clean Catch Urine Culture - Preliminary GNR 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 Follow up final culture results, thus far showing GNR. (2) Hyperglycemia due to type 2 diabetes mellitus: QUALIFIERS: Diabetes mellitus pants busheler insulin use: with pants busheler use Qualified Code(s): E11.65 - Type 2 diabetes mellitus with hyperglycemia; Z79.4 - customer consultant (current) use of insulin PLAN: poorly controlled. Previous a1c 11.4. Recheck 12.2. On SSI. Resume U500 Is established with endocrinology and a1c went from 7.2 (04/2024) to 11.4. Patient had been missing doses. (3) Constipation: QUALIFIERS: Constipation type: unspecified constipation type Q ualified Code(s): K59.00 - Constipation, unspecified PLAN: Add dulcolax, Miralax. (4) Nausea & vomiting: PLAN: supportive mgmt. PLAN: Plan Chronic conditions: * obesity class III: complicates care and recovery. * anemia: on ferrous sulfate. Heme positive stools. Did have colonoscopy on the 07/29: stool in the recto-sigmoid colon, simoid and descending colon, transverse colon and in the cecum. * depression: fluoxetine * hypothyroidism: levothyroxine * GERD: PPI, sucralfate * Neuroendocrine tumor of the stomach. Was referred to [facility] for further evaluation by [facility]. VTE prophylaxis: LMWH Disposition: pending final culture results.
--- NOTE | 2025-01-13 07:36 | PCM.PN.HOSP ---
Reason for Visit Reason for Visit: Diagnoses Bandemia (01/11/25) Type 2 diabetes mellitus with hyperglycemia (01/11/25) Morbid (severe) obesity due to excess calories (01/11/25) Constipation, unspecified (01/11/25) Acute cystitis without hematuria (01/11/25) Urinary tract infection, site not specified (01/11/25) Nausea with vomiting, unspecified (01/11/25) Adverse effect of unspecified drugs, medicaments and biological substances, initial encounter (01/11/25) Body mass index [BMI] 45.0-49.9, adult (01/11/25) retirement (current) use of insulin (01/11/25) Personal history of COVID-19 (01/11/25) Subjective Subjective Feeling well. Anxious to go home. Objective Data Objective Data Vital Signs: Vital Signs Temp Pulse Resp BP Pulse Ox O2 Del Method O2 Flow Rate 36.6 C 79 18 122/74 H 98 Nasal Cannula 2 01/13/25 03:59 01/13/25 06:42 01/13/25 06:42 01/13/25 03:59 01/13/25 06:42 01/13/25 06:42 01/13/25 06:42 Oxygen Flow Rate (L/min) 2 Oxygen Delivery Method Nasal Cannula Weight: 111.2 kg Body Mass Index (BMI) 46.3 Intake & Output: Intake and Output for Last 24 Hours 01/11/25 01/12/25 01/13/25 23:59 23:59 23:59 Intake Total 2049 50 / 50 Output Total 200 / 200 Balance 1849 / 1849 50 / 50 Lab / Micro Data 01/12/25 05:40 01/12/25 05:40 Labs: Laboratory Results - last 24 hr 01/12/25 11:16: POC Glucose 299 H 01/12/25 16:33: POC Glucose 119 H 01/12/25 21:50: POC Glucose 185 H 01/13/25 06:41: POC Glucose 93 Micro: Microbiology 01/10/25 22:30 Urine, Clean Catch Urine Culture - Preliminary GNR 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 01/11/25 10:30 Stool Stool Occult Blood (SHAHEEN) - Final Occult Blood Positive Physical Exam Const alert and no apparent distress HEENT head/scalp atraumatic and moist oral mucous membranes Resp normal respiratory effort, no retractions, no use of accessory muscles and clear to auscultation bilaterally Cardio regular rate, regular rhythm, S1 normal heart sound and S2 normal heart sound GI normal to inspection, nondistended, normoactive bowel sounds, soft to palpation, non-tender and non-distended Extremity normal to inspection and full ROM Neuro Sensorium / Orientation: awake and alert Assessment & Plan Assessment/Plan (1) Urinary tract infection: PLAN: on CTX. UCx showing boudreaux-sensitive E. coli. Will discharge with ciprofloxacin (2) Hyperglycemia due to type 2 diabetes mellitus: QUALIFIERS: Diabetes mellitus detention insulin use: with detention use Qualified Code(s): E11.65 - Type 2 diabetes mellitus with hyperglycemia; Z79.4 - retirement (current) use of insulin PLAN: poorly controlled. Previous a1c 11.4. Recheck 12.2. On SSI. Resume U500 Is established with endocrinology and a1c went from 7.2 (04/2024) to 11.4. Patient had been missing doses. (3) Constipation: QUALIFIERS: Constipation type: unspecified constipation type Qualified Code(s): K59.00 - Constipation, unspecified PLAN: Add dulcolax, Miralax. (4) Nausea & vomiting: PLAN: supportive mgmt. PLAN: Plan Chronic conditions: obesity class III: complicates care and recovery. anemia: on ferrous sulfate. Heme positive stools. Did have colonoscopy on the 07/29: stool in the recto-sigmoid colon, simoid and descending colon, transverse colon and in the cecum. depression: fluoxetine hypothyroidism: levothyroxine GERD: PPI, sucralfate Neuroendocrine tumor of the stomach. Was referred to [facility] for further evaluation by [facility]. VTE prophylaxis: LMWH Disposition: to home.
[2025-01-13] MEDS: Insulin U-500 UNITS/ML PEN 100 UNITS SC ×2 (07:52→14:05)
[2025-01-13] MEDS: Enoxaparin 40 MG/0.4 ML Syringe SC (07:53)
[2025-01-13] MEDS: Polyethylene Glycol 3350 17 GM PACKET PO (07:55)
[2025-01-13] MEDS: Pantoprazole Sodium 40 MG Tablet PO (07:56)
[2025-01-13] MEDS: Fluoxetine HCl 40 MG CAPSULE PO (07:56)
[2025-01-13 11:25] LABS: Bedside Glucose 147 mg/dL (74-106)
--- NOTE | 2025-01-13 14:23 | PCM.DC.SUM ---
Providers Date of Admission: 01/11/25 Primary Care Physician: DARLING KWAN Reason For Visit: UTI, LEUKOCYTOSIS, HYPERGLYCEMIA, ADR AND Diagnosis Discharge Diagnosis (1) Urinary tract infection: Status: Inactive Code(s): N39.0 - Urinary tract infection, site not specified Plan: on CTX. UCx showing boudreaux-sensitive E. coli. Will discharge with ciprofloxacin (2) Hyperglycemia due to type 2 diabetes mellitus: Status: Acute Code(s): E11.65 - Type 2 diabetes mellitus with hyperglycemia Qualifiers: Diabetes mellitus computer terminal operator insulin use: with detention use Qualified Code(s): E11.65 - Type 2 diabetes mellitus with hyperglycemia; Z79.4 - USP (current) use of insulin Plan: poorly controlled. Previous a1c 11.4. Recheck 12.2. On SSI. Resume U500 Is established with endocrinology and a1c went from 7.2 (04/2024) to 11.4. Patient had been missing doses. (3) Constipation: Status: Acute Code(s): K59.00 - Constipation, unspecified Qualifiers: Constipation type: unspecified constipation type Qualified Code(s): K59.00 - Constipation, unspecified Plan: Add dulcolax, Miralax. (4) Nausea & vomiting: Status: Acute Code(s): R11.2 - Nausea with vomiting, unspecified Plan: supportive mgmt. Plan Chronic conditions: obesity class III: complicates care and recovery. anemia: on ferrous sulfate. Heme positive stools. Did have colonoscopy on the 07/29: stool in the recto-sigmoid colon, simoid and descending colon, transverse colon and in the cecum. depression: fluoxetine hypothyroidism: levothyroxine GERD: PPI, sucralfate Neuroendocrine tumor of the stomach. Was referred to [facility] for further evaluation by [facility]. VTE prophylaxis: LMWH Disposition: to home. Medications at Discharge Home Medications blood-glucose sensor (Dexcom G7 Sensor device) #3 ea 02/18/23 blood-glucose,feltmaker and weigher,cont (Dexcom G7 Coremaker Bench) #1 ea 02/18/23 acetaminophen 500 mg tablet 500 - 1,000 mg PO Q6H PRN fever or pain 04/18/23 blood sugar diagnostic (CIHIuch Verio test strips) #100 ea 09/23/23 levothyroxine 200 mcg tablet 200 mcg PO DAILY hypothyroidism #90 tabs 09/23/23 fluoxetine 40 mg capsule 40 mg PO DAILY depression 03/11/24 insulin regular hum U-500 conc 500 unit/mL(3 mL) subcut pen (Humulin R U-500 (Conc) Insulin Kwikpen) 100 unit (0.2 mL) subcut TID DM #18 mL 03/12/24 pantoprazole 40 mg tablet,delayed release 40 mg PO BID gerd 30 days #60 tabs 04/07/24 sucralfate 1 gram tablet 1 g PO 1HR_ACHS gerd 14 days #42 tabs 04/07/24 fenofibrate nanocrystallized 48 mg tablet 48 mg PO QHS 1 month #30 tabs 05/09/24 dulaglutide 4.5 mg/0.5 mL subcutaneous pen injector (Trulicity) 4.5 mg subcut NARVAEZ diabetes 07/28/24 lancets 30 gauge (Easy Touch Lancets) #100 ea 09/24/24 cholecalciferol (vitamin D3) 1,250 mcg (50,000 unit) capsule 1,250 mcg PO QWEEK supplement 09/30/24 ferrous sulfate 325 mg (65 mg iron) tablet 325 mg PO QODAY iron 09/30/24 gabapentin 300 mg capsule 300 mg PO TID pain 30 days #90 caps 09/30/24 oxycodone-acetaminophen 5 mg-325 mg tablet (Percocet) 1 tab PO Q6H PRN pain 3 days #12 tabs 09/30/24 albuterol sulfate 90 mcg/actuation aerosol inhaler 2 inh inhalation Q4-6H PRN shortness of breath or wheezing #8.5 grams 10/30/24 fluticasone 500 mcg-salmeterol 50 mcg/dose blistr powdr for inhalation (Advair Diskus) 1 inh inhalation Q12H astham #60 ea 10/30/24 benzonatate 200 mg capsule 200 mg PO TID PRN cough #20 caps 12/30/24 ciprofloxacin HCl 500 mg tablet 500 mg PO Q12H #8 tabs 01/13/25 Hospital Course Operations None Procedures None Summary of Care Provided Hospital Course: Patient presented with UTI and hyperglycemia. Mention patient was found to have E. coli that was pansensitive. Patient was on ceftriaxone while she was here. She did have a day where she had intractable nausea and vomiting but since improved. Patient will be discharged home in stable condition. Weight / BMI Weight Weight: 111.2 kg Body Mass Index (BMI) 46.3 ABG / Lab / Microbiology Data 01/12/25 05:40 01/12/25 05:40 Laboratory: Laboratory Results - last 24 hr 01/12/25 16:33: POC Glucose 119 H 01/12/25 21:50: POC Glucose 185 H 01/13/25 06:41: POC Glucose 93 01/13/25 11:08: POC Glucose 147 H Microbiology: Microbiology 01/10/25 22:30 Urine, Clean Catch Urine Culture - Preliminary Escherichia coli 01/11/25 10:30 Stool Stool Occult Blood (SHAHEEN) - Final Occult Blood Positive D/C Instructions Discharge Diet: 2000 Calorie Control Diet DC O2, CPAP, BIPAP Needs Home O2 Discharge instructions: Yes Type of respiratory needs?: Oxygen Oxygen frequency: Continuous Continuous oxygen liters per minute: 2 DC home with Oxygen: Yes Home O2 MD Review: I have reviewed the oxygen testing, and the patient qualifies for home oxygen equipment and portability. The patient is mobile in the home and the community. Meaningful Use Info Meaningful Use Meaningful Use Diagnoses (Choose all that apply): None applicable Ischemic Stroke Statin Dosing Therapy Reference: STATIN DOSE THERAPY REFERENCE: * Patients > 75 years receive moderate or high dose statin therapy. * Patients 75 years or YOUNGER should receive HIGH intensity statin dose unless contraindicated. You will be required to document reason for non-treatment if statin daily dose does not meet guidelines. HIGH DOSE STATIN THERAPY DAILY Atorvastatin > than or = to 40 mg Rosuvastatin > than or = to 20 mg Amlodipine + Atorvastatin > than or = to 2.5/40 mg Ezetimibe + Simvastatin 10/80 mg Simvastatin 80mg Discharge Plan Admission Admit Date/Time: 01/11/25 01:04 Primary Reason for Your Visit: UTI. Attending Provider: Velasquez Vivas Primary Care Provider: OLU ORTIZ Consulting Providers: Ector Arthur Discharge Orders/Prescriptions Prescriptions: New ciprofloxacin HCl 500 mg tablet 500 mg PO Q12H Qty: 8 0RF Continued (DME) Dexcom G7 Sensor Device See Rx Instructions .Route Qty: 3 5RF Rx Instructions: 1 sensor q 10 days (DME) Dexcom G7 Coremaker Bench Misc See Rx Instructions .Route Qty: 1 0RF Rx Instructions: As directed (DME) OneTouch Verio test strips Strip See Rx Instructions .Route Qty: 100 5RF Rx Instructions: 4x/day levothyroxine 200 mcg tablet 200 mcg PO DAILY Qty: 90 1RF Patient Comments: take two pills on Saturday Humulin R U-500 (Conc) Kwikpen 500 unit/mL (3 mL) insulin pen 100 unit subcut TID Qty: 18 5RF Rx Instructions: Increase by 10u/meal if glucose >[address] Cervantes's office, hold if glucose <100. fluoxetine 40 mg capsule 40 mg PO DAILY albuterol sulfate 90 mcg/actuation HFA aerosol inhaler 2 inh inhalation Q4-6H PRN (Reason: shortness of breath or wheezing) Qty: 8.5 0RF fluticasone propion-salmeterol [Advair Diskus] 500-50 mcg/dose blister with device 1 inh inhalation Q12H Qty: 60 5RF (DME) lancets [Easy Touch Lancets] 30 gauge misc See Rx Instructions .Route Qty: 100 5RF Rx Instructions: TID benzonatate 200 mg capsule 200 mg PO TID PRN (Reason: cough) Qty: 20 0RF acetaminophen 500 mg tablet 500 - 1,000 mg PO Q6H PRN (Reason: fever or pain) Trulicity 4.5 mg/0.5 mL pen injector 4.5 mg subcut NARVAEZ ferrous sulfate 325 mg (65 mg iron) tablet 325 mg PO QODAY cholecalciferol (vitamin D3) 1,250 mcg (50,000 unit) capsule 1,250 mcg PO QWEEK oxycodone-acetaminophen [Percocet] 5-325 mg tablet 1 tab PO Q6H PRN (Reason: pain) 3 Days Qty: 12 0RF gabapentin 300 mg capsule 300 mg PO TID 30 Days Qty: 90 0RF sucralfate 1 gram Tablet 1 g PO 1HR_ACHS 14 Days Qty: 42 0RF pantoprazole 40 mg Tablet,Delayed Release (Dr/Ec) 40 mg PO BID 30 Days Qty: 60 2RF fenofibrate nanocrystallized 48 mg tablet 48 mg PO QHS 30 Days Qty: 30 5RF Referrals / Follow Up: Pulmonary Medicine [facility] [Provider Group] - 02/02/25 12:45 pm [facility] [Provider Group] - 02/04/25 11:15 am OLU ORTIZ CRNP [Primary Care Provider] - Within 2 Weeks Disposition Disposition (needs filled in before D/C Order can be placed): Home, Self Care Charges/Coding Visit Charges Inpatient E&M: 84212 Disch Hosp >30min
--- NOTE | 2025-01-13 15:12 | CASEMGMT ---
Pt declined being tested on RA per nurse. Pt 99% on 2L and at baseline oxygen for exertion. No updated rx sent.
== END 2025-01-13 17:20 | disposition home or self-care (01) | DRG 463 ==
LOC: ED 22:40 → MS3 01-11 01:17
PROVIDERS: Admitting Provider Internal Medicine; Emergency Provider Surgery; PCP Nurse Practitioner Adult Health
DX: N30.00 Acute cystitis without hematuria (principal); C7A.8 Other malignant neuroendocrine tumors; E03.9 Hypothyroidism, unspecified; D64.9 Anemia, unspecified; B96.20 Unspecified Escherichia coli [E. coli] as the cause of diseases classified elsewhere; Z99.81 Dependence on supplemental oxygen; E11.40 Type 2 diabetes mellitus with diabetic neuropathy, unspecified; Z68.42 Body mass index [BMI] 45.0-49.9, adult; I10 Essential (primary) hypertension; E11.65 Type 2 diabetes mellitus with hyperglycemia; Z79.4 Long term (current) use of insulin; K59.00 Constipation, unspecified; R19.5 Other fecal abnormalities; G47.33 Obstructive sleep apnea (adult) (pediatric); K21.9 Gastro-esophageal reflux disease without esophagitis; E78.00 Pure hypercholesterolemia, unspecified; R09.02 Hypoxemia; E66.813 Obesity, class 3; Z79.85 Long-term (current) use of injectable non-insulin antidiabetic drugs; Z79.890 Hormone replacement therapy; Z79.899 Other long term (current) drug therapy; Z86.16 Personal history of COVID-19; Z87.891 Personal history of nicotine dependence
CPT/HCPCS: 36415; 74176; 80048; 80053; 81001; 82274; 82728; 82962; 83036; 83540; 83550; 83605; 83735; 84100; 84443; 85025; 87077; 87086; 87088; 87186; 94640; 94668; 97116; 97161; 97530; 99283; A4216; J2405

== ENCOUNTER → 2025-02-04 | Outpatient (CLI) | payer MEDICAID, SELFPAY ==
[2025-02-04 13:29] LABS: AST(SGOT) 52 U/L (<=31); Alanine Aminotransfer ALT/SGPT 38 U/L (<=34); Albumin, Serum 3.8 g/dL (3.5-5.0); Alkaline Phosphatase 174 U/L (35-104); Anion Gap 11 (5-15); BUN 11 mg/dL (4-19); BUN/Creat Ratio 18.2 RATIO (10-20); Calcium,Total 9.9 mg/dL (7.6-11.0); Carbon Dioxide 25.4 mmol/L (21.0-32.0); Chloride 99 mmol/L (98-108); Globulin 4.5 g/dL (2.2-4.2); Glucose 101 mg/dL (70-99); Potassium 4.5 mmol/L (3.3-5.1)
== END | disposition home or self-care (01) ==
PROVIDERS: PCP Nurse Practitioner Adult Health; Referring Provider Nurse Practitioner Family; Visit Provider Nurse Practitioner Family
DX: E03.8 Other specified hypothyroidism (principal); E11.65 Type 2 diabetes mellitus with hyperglycemia; Z79.4 Long term (current) use of insulin; E06.3 Autoimmune thyroiditis
CPT/HCPCS: 36415; 80053; 84439; 84443

== ENCOUNTER 2025-02-09 23:54 | Emergency (ER) | payer MEDICAID, SELFPAY ==
[2025-02-09 23:54] VITALS: BP 122/84; PULSE 152; RESP 30; TEMP 36.9; O2SAT 100; BMI 40.6
[2025-02-10 00:05] VITALS: O2SAT 100
--- NOTE | 2025-02-10 00:20 | CT_ITS ---
PROCEDURE: CTA CHEST W/WO CONTRAST 02/10/2025 REASON FOR EXAM: DYSPNEA TECHNIQUE: CTA CHEST W/WO CONTRAST Multiplanar Sagittal and Coronal images were obtained. CONTRAST: Isovue 370 VOLUME: 100 mL One or more dose reduction techniques were used (e.g., Automated exposure control, adjustment of the mA and/or kV according to patient size, use of iterative reconstruction technique). RADIATION DOSE SUMMARY: CTDlvol: 40 mGy DLP: 556 mGycm COMPARISON: 04/03/2024 FINDINGS: Unremarkable base of neck and axilla. Thoracic spine degeneration. Normal esophagus. Normal heart size. Possible LVH. No aortic dissection. No pulmonary embolism. No acute chest wall findings. Status post cholecystectomy. Epigastric adenopathy, series 2, image 49, nonspecific. No acute upper abdominal findings otherwise noted. Central airways are patent. Bilateral areas of postinflammatory lung scarring, mainly upper lobes. No definite consolidation. No effusion or pneumothorax. CT/CTA Chest W/WO Contrast IMPRESSION: Postinflammatory lung scarring. No embolism, dissection, or pneumonia. Reading Location: [facility]-
[2025-02-10 00:32] LABS: Hematocrit 35.6 % (37-47); Hemoglobin 11.3 g/dL (12.0-15.0); Immature Granulocytes Count 0.160 X10^3/uL (0.0-0.0); Mean Corp Hgb Conc 31.7 g/dL (32-36); Mean Corpuscular Volume 80.7 fL (81-99); Mean Platelet Vol. 10.3 fl (6.2-12.0); NRBC Flagged by Analyzer 0 % (0-5); POSITIVE MORPHOLOGY YES; Platelet Count 220 K/mm3 (150-450); RBC Distribution Width CV 16.0 % (11.6-14.6); RBC Distribution Width SD 46.8 fl (35.1-43.9); Red Blood Count 4.41 M/mm3 (4.2-5.4); White Blood Count 8.0 K/mm3 (4.4-11.0)
[2025-02-10 00:33] LABS: Differential Indicated SCAN CRITERIA MET
[2025-02-10] MEDS: 0.9% Normal Saline (500mL Bag) 500 ML 999 ML IV (00:33)
[2025-02-10 00:35] VITALS: BP 119/50; PULSE 96; RESP 22; O2SAT 100
[2025-02-10 00:40] LABS: Prothrombin Time (Protime)PT. 13.9 SECONDS (11.7-14.9)
[2025-02-10 00:41] LABS: Partial Thromboplast Time 22.1 Seconds (24.1-36.2)
[2025-02-10 00:52] LABS: Magnesium 1.9 mg/dL (1.5-2.2)
[2025-02-10 00:53] LABS: Anion Gap 11 (5-15); BUN 11 mg/dL (4-19); BUN/Creat Ratio 16.6 RATIO (10-20); Calcium,Total 9.5 mg/dL (7.6-11.0); Carbon Dioxide 26.1 mmol/L (21.0-32.0); Chloride 101 mmol/L (98-108); Estimated Creatinine Clearance 97.80 ml/min (50-250); Glucose 114 mg/dL (70-99); Potassium 4.4 mmol/L (3.3-5.1)
[2025-02-10 01:38] LABS: Differential Comment SCANNED
--- OUTSIDE RECORDS SUMMARY | 2025-02-10 01:46 | XMS RPT_ITS | CCD ---
Author Organization [facility] Care Team Providers Care Survey Technician Name Role Phone Papa Douglass MD Primary Care Provider [facility], Keti Unavailable [facility], Jessica Unavailable Dr. Papa Douglass Primary Care Provider Dr. Candy Archuleta Emergency Provider Dr. Irwin Sorenson Admit Provider Dr. Irwin Sorenson Other Provider Dr. Augusta Lewis Attending Provider Dr. Augusta Lewis Other Provider Papa Douglass MD Primary Care Provider [facility], Keti Unavailable [facility], Jessica Unavailable Papa Douglass MD Primary Care Provider [facility], Keti Unavailable [facility], Jessica Unavailable Dr. Papa Douglass Primary Care Provider Dr. Candy Archuleta Emergency Provider Dr. Irwin Sorenson Admit Provider [phone] Irwin Sorenson Other Provider Dr. Augusta Lewis Attending Provider Dr. Augusta Lewis Other Provider Papa Douglass MD Primary Care Provider Tonia [facility], Kiley Unavailable [facility], Jessica Unavailable Dr. Papa Douglass Primary Care Provider Dr. Papa Douglass Referring Provider DAVID Drake Attending Provider Dr. Candy Archuleta Emergency Provider Dr. Cecilia Villa Admit Provider Dr. Cecilia Villa Attending Provider Dr. Cecilia Villa Other Provider Dr. Nathalie Kelsey Attending Provider Dr. Sergo Bustillos Attending Provider Dr. Sergo Bustillos Other Provider MAST MUTTON PUNCHER-DESIZING MACHINE OFFBEARER, VERO Primary Care Physician Evonne BRODERICK, Papa Shaw Primary Care Provider MAST MUTTON PUNCHER-DESIZING MACHINE OFFBEARER, VERO Attending Unavailabl e MAST MUTTON PUNCHER-DESIZING MACHINE OFFBEARER, VERO Primary Care Unavailabl e VIDAL ROSSC, JAZIEL Attending Unavailable MAST MUTTON PUNCHER-DESIZING MACHINE OFFBEARER, VERO Primary Care Unavailabl e [place] MUTTON PUNCHER-DESIZING MACHINE OFFBEARER, KURT Attending Unava ilable MAST MUTTON PUNCHER-DESIZING MACHINE OFFBEARER, VERO Primary Care Unavailabl e [place] MUTTON PUNCHER-DESIZING MACHINE OFFBEARER, KURT Attending Unava ilable MAST MUTTON PUNCHER-DESIZING MACHINE OFFBEARER, VERO Primary Care Unavailabl e MAST MUTTON PUNCHER-DESIZING MACHINE OFFBEARER, VERO Attending Unavailabl e MAST MUTTON PUNCHER-DESIZING MACHINE OFFBEARER, VERO Primary Care Unavailabl e MAST MUTTON PUNCHER-DESIZING MACHINE OFFBEARER, VERO Attending Unavailabl e MAST MUTTON PUNCHER-DESIZING MACHINE OFFBEARER, VERO Primary Care Unavailabl e MAST MUTTON PUNCHER-DESIZING MACHINE OFFBEARER, VERO Attending Unavailabl e MAST MUTTON PUNCHER-DESIZING MACHINE OFFBEARER, VERO Primary Care Unavailabl e [place] MUTTON PUNCHER-DESIZING MACHINE OFFBEARER, KURT Attending Unava ilable MAST MUTTON PUNCHER-DESIZING MACHINE OFFBEARER, VERO Primary Care Unavailabl e TANMAY BRODERICK, DR URSULA Vital Attending Unavailabl e MAST MUTTON PUNCHER-DESIZING MACHINE OFFBEARER, VERO Primary Care Unavailabl e DR CINDY ROGERS DO Attending Unavailable MAST MUTTON PUNCHER-DESIZING MACHINE OFFBEARER, VERO Primary Care Unavailabl e MAST MUTTON PUNCHER-DESIZING MACHINE OFFBEARER, VERO Attending Unavailabl e MAST MUTTON PUNCHER-DESIZING MACHINE OFFBEARER, VERO Primary Care Unavailabl e MAST MUTTON PUNCHER-DESIZING MACHINE OFFBEARER, VERO Attending Unavailabl e MAST MUTTON PUNCHER-DESIZING MACHINE OFFBEARER, VERO Primary Care Unavailabl e MAST MUTTON PUNCHER-DESIZING MACHINE OFFBEARER, VERO Attending Unavailabl e MAST MUTTON PUNCHER-DESIZING MACHINE OFFBEARER, VERO Primary Care Unavailabl e MAST MUTTON PUNCHER-DESIZING MACHINE OFFBEARER, VERO Attending Unavailabl e MAST MUTTON PUNCHER-DESIZING MACHINE OFFBEARER, VERO Primary Care Unavailabl e [place] [facility], Keti Unavailable [facility], Jessica Unavailable Mast METEOROLOGY TEACHER, Vero Primary Care Provider Unavailabl e Gilson [facility], Joseluis S Unavailable Quentin MEJÍA, Natalya Unavailable Unavailable Owen DINEROW, Rylee Unavailable Unavailable Tk LACKEY, Crystal Unavailable Unavail able Jaziel Drake MD Unavailable Sesar MEJÍA, Mari Unavailable Unavailable [place] MUTTON PUNCHER-DESIZING MACHINE OFFBEARER, CORTJADE Attending Unava ilable MAST MUTTON PUNCHER-DESIZING MACHINE OFFBEARER, VERO Primary Care Unavailabl e MAST MUTTON PUNCHER-DESIZING MACHINE OFFBEARER, VERO Primary Care Unavailabl e OZ BRODERICK, AMADOU Givens Attending Unavailable MAST MUTTON PUNCHER-DESIZING MACHINE OFFBEARER, VERO Primary Care Unavailabl e [place] MUTTON PUNCHER-DESIZING MACHINE OFFBEARER, CORTNY Attending Unava ilable Jame RN, Gia Unavailable Unavailable Jame RN, Gia Unavailable Unavailable Mast DESIZING MACHINE OFFBEARER, Vero Unavailable [place] MUTTON PUNCHER.DESIZING MACHINE OFFBEARER, Coco Unavailable Enrique MUTTON PUNCHER.DESIZING MACHINE OFFBEARER, Feliciano Unavailable MAST GROCERY MANAGER, VERO Primary Care Provider Dr. Ralph Singh MD Attending Provider Dr. Ralph Singh MD Referring Provider MAST GROCERY MANAGER, VERO Referring Provider Vidal METEOROLOGY TEACHER-CJaziel Attending Provider Dr. Brayan Cast DO Attending Provider Serene MONDRAGON Dr. Brayan Referring Provider Serene MONDRAGON, Dr. Schmidt Other Provider [phone] Arnav METEOROLOGY TEACHER-CElsa Attending Provider Agustina BRODERICK, Dr. Ritchie Attending Provider [phone] Agustina BRODERICK, Dr. Ritchie Referring Provider Arnav METEOROLOGY TEACHER-C, Elsa Butler Referring Provider Dr. Steven Mercado DO Emergency Provider MAST GROCERY MANAGER, VERO Primary Care Provider [phone] Francisco BRODERICK, Dr. Rosas Attending Provider Francisco BRODERICK, Dr. Rosas Referring Provider MAST GROCERY MANAGER, EVRO Referring Provider Vidal METEOROLOGY TEACHER-CJaziel Attending Provider MAST GROCERY MANAGER, VERO Primary Care Provider [phone] Francisco BRODERICK, Dr. Rosas Attending Provider Francisco BRODERICK, Dr. Rosas Referring Provider Dr. Steven Mercado DO Attending Provider Arnav METEOROLOGY TEACHER-C, Elsa Butler Other Provider [phone] Alberto Qiu DO Attending Provider Dr. Velasquez Hill DO Emergency Provider [facility] MUTTON PUNCHER.DESIZING MACHINE OFFBEARER, Coco Unavailable Mast METEOROLOGY TEACHER, Vero Primary Care Provider Unavailabl e Gilson [facility], Mansour S Unavailable Jaziel Drake MD Unavailable Unavailable MAST GROCERY MANAGER, VERO Primary Care Provider [phone] MAST GROCERY MANAGER, VERO Referring Provider Dr. Velasquez Hill DO Attending Provider Neal Florian Attending Provider MAST GROCERY MANAGER, VERO Primary Care Provider MAST GROCERY MANAGER, VERO Referring Provider [phone] Arnav ROSSC, Elsa Butler Attending Provider Lazarus DO, Dr. Dominguez Attending Provider Jeanine MONDRAGON, Dr. Centeno Emergency Provider de Vinayak DO, Dr. Barney Admit Provider Unavail able de Vinayak MONDRAGON, Dr. Barney Attending Provider Unav ailable Jeanine DO, Dr. Centeno Emergency Provider de Vinayak DO, Dr. Barney Admit Provider Unavail able de Vinayak , Dr. Barney Other Provider Unavail able Ortega MONDRAGON, Dr. Eng Attending Provider Ortega MONDRAGON, Dr. Eng Other Provider MAST, VERO Referring Unavailable MAST, VERO [...] Care Unavailable MAST, VERO Primary Care Unavailable ANIKA, KAROLINA A Attending Unavailable ANIKA, KAROLINA A Referring Unavailable BLAS ROD Attending Unavailable ISCKARUS, MANSOUR S Referring Unavailable MAST, VERO Primary Care Unavailable MAST, VERO Referring Unavailable AGUSTINA, SCOTT Attending Unavailable MAST, VERO Primary Care Unavailable BALS ROD Attending Unavailable MAST, VERO Primary Care Unavailable SELF, SELF Referring Unavailable MAST, VERO Primary Care Unavailable ANIKA, KAROLINA A Attending Unavailable ANIKA, KAROLINA A Referring Unavailable MAST, VERO Primary Care Unavailable BLAS MERRILL Attending Unavailable ANIKA, KAROLINA A Referring Unavailable MAST, VERO Referring Unavailable MAST, VERO Primary Care Unavailable AGUSTINA, SCOTT Attending Unavailable MAST, VERO Referring Unavailable MAST, VERO Primary Care Unavailable AGUSTINA, SCOTT Attending Unavailable AGUSTINA, SCOTT Attending Unavailable MAST, VERO Primary Care Unavailable AGUSTINA, SCOTT Referring Unavailable AGUSTINA, SCOTT Attending Unavailable MAST, VERO Primary Care Unavailable THOMAS MONTERO Referring Unavailable MAST, VERO Primary Care Unavailable BLAS MERRILL Referring Unavailable BLAS MERRILL Attending Unavailable MAST, VERO Referring Unavailable MAST, VERO Primary Care Unavailable AGUSTINA, SCOTT Attending Unavailable MAST MUTTON PUNCHER-DESIZING MACHINE OFFBEARER, VERO Primary Care Unavailabl e MAST MUTTON PUNCHER-DESIZING MACHINE OFFBEARER, VERO Attending Unavailabl e [place] MUTTON PUNCHER-DESIZING MACHINE OFFBEARER, KURT Attending Unava ilable MAST MUTTON PUNCHER-DESIZING MACHINE OFFBEARER, VERO Primary Care Unavailabl e MAST MUTTON PUNCHER-DESIZING MACHINE OFFBEARER, VERO Primary Care Unavailabl e MAST MUTTON PUNCHER-DESIZING MACHINE OFFBEARER, VERO Attending Unavailabl e MAST MUTTON PUNCHER-DESIZING MACHINE OFFBEARER, VERO Primary Care Unavailabl e MAST MUTTON PUNCHER-DESIZING MACHINE OFFBEARER, VERO Attending Unavailabl e MAST MUTTON PUNCHER-DESIZING MACHINE OFFBEARER, VERO Primary Care Unavailabl e MAST MUTTON PUNCHER-DESIZING MACHINE OFFBEARER, VERO Attending Unavailabl e MAST MUTTON PUNCHER-DESIZING MACHINE OFFBEARER, VERO Attending Unavailabl e MAST MUTTON PUNCHER-DESIZING MACHINE OFFBEARER, VERO Primary Care Unavailabl e MAST MUTTON PUNCHER-DESIZING MACHINE OFFBEARER, VERO Attending Unavailabl e MAST MUTTON PUNCHER-DESIZING MACHINE OFFBEARER, VERO Primary Care Unavailabl e MAST MUTTON PUNCHER-DESIZING MACHINE OFFBEARER, VERO Primary Care Unavailabl e ALDA ABBASI MD Attending Unavail able MAST MUTTON PUNCHER-DESIZING MACHINE OFFBEARER, VERO Attending Unavailabl e MAST MUTTON PUNCHER-DESIZING MACHINE OFFBEARER, VERO Primary Care Unavailabl e [place] MUTTON PUNCHER-DESIZING MACHINE OFFBEARER, KURT Attending Unava ilable MAST MUTTON PUNCHER-DESIZING MACHINE OFFBEARER, VERO Primary Care Unavailabl e MAST MUTTON PUNCHER-DESIZING MACHINE OFFBEARER, VERO Attending Unavailabl e MAST MUTTON PUNCHER-DESIZING MACHINE OFFBEARER, VERO Primary Care Unavailabl e MAST MUTTON PUNCHER-DESIZING MACHINE OFFBEARER, VERO Attending Unavailabl e MAST MUTTON PUNCHER-DESIZING MACHINE OFFBEARER, VERO Primary Care Unavailabl e MAST MUTTON PUNCHER-DESIZING MACHINE OFFBEARER, VERO Attending Unavailabl e MAST MUTTON PUNCHER-DESIZING MACHINE OFFBEARER, VERO Primary Care Unavailabl e MAST GROCERY MANAGER, VERO Primary Care Provider [phone] Elsa Blake Attending Provider Elsa Blake Referring Provider MAST GROCERY MANAGER, VERO Referring Provider [phone] MAST GROCERY MANAGER, VERO Primary Care Provider [phone] Arnav METEOROLOGY TEACHER-CElsa Referring Provider Arnav METEOROLOGY TEACHER-CElsa Attending Provider Vidal METEOROLOGY TEACHER-CJaziel Attending Provider Ralph Singh Referring Unavailable MAST, VERO Primary Care Unavailable Ralph Singh Attending Unavailable Hamida Saini Attending Unavailable MAST, VERO Primary Care Unavailable Hamida Saini Admitting Unavailable MAST, VERO Primary Care Unavailable Sergo Bustillos Consulting Unavailable Sergo Bustillos Attending Unavailable Sergo Bustillos Admitting Unavailable MAST, VERO Primary Care Unavailable Friend, Brayan Attending Unavailable Friend, Brayan Referring Unavailable Law Trinh Referring Unavailable Friend, Brayan Attending Unavailable Law Trinh Consulting Unavailable Amadou Arthur Admitting Unavailable Amadou Arthur Consulting Unavailable MAST, VERO Primary Care Unavailable Velasquez Vivas Attending Unavailable Velasquez Vivas Consulting Unavailable Amadou Arthur Attending Unavailable MAST, VERO Primary Care Unavailable Hamida Saini Consulting Unavailable Hamida Saini Attending Unavailable Hamida Saini Admitting Unavailable Jaziel Drake Attending Unavailable MAST, VERO Primary Care Unavailable MAST, VERO Referring Unavailable Jaziel Drake Attending Unavailable MAST, VERO Primary Care Unavailable MAST, VERO Referring Unavailable MAST, VERO Primary Care Unavailable Friend, Brayan Attending Unavailable Friend, Brayan Referring Unavailable Friend, Brayan Consulting Unavailable Elsa José Attending Unavailable Elsa José Referring Unavailable MAST, VERO Primary Care Unavailable Elsa José Attending Unavailable Elsa José Referring Unavailable MAST, VERO Primary Care Unavailable Elsa José Referring Unavailable MAST, VERO Primary Care Unavailable Elsa José Attending Unavailable Agustina Scott Referring Unavailable MAST, VERO Primary Care Unavailable Ayo Berriosna Attending Unavailable Joseluis Riggins Referring Unavailable Joseluis Riggins Attending Unavailable MAST, VERO Primary Care Unavailable MAST, VERO Primary Care Unavailable Francisco, Ralph Attending Unavailable MAST, VERO Referring Unavailable RufenElsa fonseca Attending Unavailable MAST, VERO Primary Care Unavailable MAST, VERO Referring Unavailable Law Trinh Attending Unavailable MAST, VERO Primary Care Unavailable Sergo Bustillos Admitting Unavailable Sergo Bustillos Consulting Unavailable Francisco Ralph Attending Unavailable MAST, VERO Primary Care Unavailable MAST, VERO Referring Unavailable Abram Becker Attending Unavailable MAST, VERO Primary Care Unavailable MAST, VERO Referring Unavailable RufenerElsa Attending Unavailable MAST, VERO Primary Care Unavailable MAST, VERO Referring Unavailable RufenerElsa Attending Unavailable MAST, VERO Primary Care Unavailable MAST, VERO Referring Unavailable MAST, VERO Primary Care Unavailable Velasquez Hill Attending Unavailable RufenerElsa M Referring Unavailable RufenerElsa Attending Unavailable MAST, VERO Primary Care Unavailable Rufener, Elsa M Referring Unavailable RufenerElsa M Attending Unavailable MAST, VERO Primary Care Unavailable Amadou Arthur Admitting Unavailable MAST, VERO Primary Care Unavailable Velasquez Vivas Attending Unavailable Amadou Arthur Consulting Unavailable Jaziel Drake Referring Unavailable MAST, VERO Primary Care Unavailable Jaziel Drake Attending Unavailable Law Trinh Attending Unavailable RufenerElsa Referring Unavailable MAST, VERO Primary Care Unavailable Alberto Qiu Attending Unavailable RufenerElsa Referring Unavailable RufenerElsa Consulting Unavailable MAST, VERO Primary Care Unavailable Alberto Qiu Attending Unavailable Joseluis Riggins Attending Unavailable MAST, VERO Primary Care Unavailable MAST, VERO Referring Unavailable Francisco Ralph Attending Unavailable MAST, VERO Primary Care Unavailable MAST, VERO Referring Unavailable Trena Neff Attending Unavailable MAST, VERO Primary Care Unavailable MAST, VERO Referring Unavailable MAST, VERO Primary Care Unavailable Neal Florian Attending Unavailable MAST, VERO Referring Unavailable MAST, VERO Primary Care Unavailable Jaziel Drake Attending Unavailable MAST, VERO Referring Unavailable MAST, EVRO Primary Care Unavailable Francisco, Ralph Referring Unavailable Francisco, Ralph Attending Unavailable Francisco, Ralph Attending Unavailable Francisco, Ralph Referring Unavailable MAST, VERO Primary Care Unavailable MAST, VERO Primary Care Unavailable Francisco, Ralph Referring Unavailable Francisco, Ralph Attending Unavailable MAST, VERO Primary Care Unavailable Jaziel Drake Attending Unavailable MAST, VERO Referring Unavailable MAST, VERO Primary Care Unavailable Jaziel Drake Attending Unavailable MAST, VERO Referring Unavailable MAST, VERO Primary Care Unavailable Steven Mercado Attending Unavailable Ralph Singh Referring Unavailable MAST, VERO Primary Care Unavailable Ralph Singh Attending Unavailable Vidal SAMUELS-CJaziel Referring Provider Allergies Allergy Classification Reported Allergen(s) Allergy Type Date of Onset Reaction(s) Facility (20 sources) Codeine; Translations: [codeine] Drug Allergy 08-01-19 13 Swelling, Swelling (morphologic abnormality) [facility] Work Phone: (20 sources) Nitrofurantoin Drug Allergy 06-14-20 21 Swelling [facility] Work Phone: (8 sources) Penicillins Drug Allergy 04-27-20 10 Rash [facility] (20 sources) Sulfamethoxazole / Trimethoprim; Translations: [sulfamethoxazole-t rimethoprim] Drug Allergy 09-08-19 16 Rash, Blister (morphologic abnormality), Blisters [facility] (17 sources) Penicillins Drug Allergy 04-27-20 10 Rash [facility] (20 sources) Sulfamethoxazole Drug Allergy 02-10-20 22 Unknown [facility] (20 sources) Sulfonamides (Antibiotic); Translations: [Sulfa (Sulfonamide Antibiotics)] Allergy to substance 02-10-20 22 Rash, Unknown [facility] (20 sources) Trimethoprim Drug Allergy 02-10-20 22 Unknown [facility] (20 sources) Penicillins Allergy to substance 06-08-20 22 Rash [facility] (20 sources) Penicillin; Translations: [penicillin] Drug Allergy Eruption of skin (disorder) [facility] (19 sources) Sulfonamide; Translations: [sulfa drugs] Drug allergy [facility] (20 sources) Penicillins Propensity to adverse reactions to drug 05-07-20 24 Rash [facility] (1 source) Codeine Drug Allergy 02-05-20 25 [facility] (1 source) Nitrofurantoin Drug Allergy 02-05-20 25 [facility] (1 source) Penicillins Drug allergy (disorder) 02-05-20 25 [facility] (1 source) Sulfamethoxazole Drug Allergy 02-05-20 [facility] (1 source) Trimethoprim Drug Allergy 02-05-20 [facility] Medications Current Medications Medication Drug [...] for Pain Score 1-10/Temp > 100.7 F 0 October 09, 2019 12:00am April 18, 2023 3:09pm Start: 10-09-2019 End: 04-18-2023 take 650 mg by mouth every six hours as needed Acetaminophen Discontinued 650 MG PO EVERY 6 HOURS NEEDED October 09, 2019 12:00am April 18, 2023 3:09pm Comment on above: Take 250 mg by mouth as needed. acetaminophen 325 mg / oxyCODONE hydrochloride 5 mg oral tablet (13 sources) Opioid Agonist Start: 10-01-19 take 1 tablet by mouth every six hours as needed for pain Oxycodone-Acetamino phen (Percocet) 5-325 mg tablet Active 1 {tbl} PO EVERY 6 HOURS as needed for pain 12 3 0 September 30, 2024 Neuropathy Polyneuropathy, unspecified Arnuity Ellipta 200 mcg/inh inhalation powder (4 sources) Start: 10-08-19 take 1 dose by inhalation every twenty-four hours Arnuity Ellipta 200 mcg/inh inhalation powder Dose : 200 mcg = 1 inh, Inhalation, q24h, # 30 EA, 0 Refill(s), Pharmacy: [id number], 159, cm, 10/02/24 9:38:00 EDT, Height, kg, 10/02/24 9:38:00 EDT, Dosing Weight Start Date: 10/07/24 Status: Ordered Quantity: 30.0 Unit: EA Repeat number: 1 benoxinate hydrochloride 4 mg/ml / fluorescein sodium 2.5 mg/ml ophthalmic solution (2 sources) Diagnostic Dye Start: 11-30-19 End: 12-01-19 fluorescein-benoxin ate 0.25-0.4 % 1 Drop (FLURESS) Start: 02-27-2022 End: 02-28-2022 fluorescein-benoxinate 0.25- 0.4 % 1 Drop (FLURESS) benzonatate 200 mg oral capsule (20 sources) Non-narcotic Antitussive Start: 12-30-2024 take 1 capsule by mouth three times daily as needed for cough Benzonatate 200 mg capsule Active 200 mg PO THREE TIMES A DAY as needed for cough 20 0 December 30, 2024 12:00am Start: 03-12-2024 End: [...] TIMES A DAY as needed for cough 20 0 January 27, 2024 12:00am March 04, 2024 10:34am Blood-Glucose Meter (Accu-Ch ek Guide Glucose Meter) mis (3 sources) Start: 01-26-2025 Blood-Glucose Meter (Accu-Chek Guide Glucose Meter) [facility] Active 0 .Route 1 0 January 26, 2025 12:00am Diabetes mellitus Type 2 diabetes mellitus with hyperglycemia 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 As directed Blood-Glucose Meter mis (20 sources) Start: 07-01-2019 Blood-Glucose Meter misc [...] - Uncontrolled E11.65 Blood-Glucose Meter,Continuous (Dexcom G7 Word Processor Technician) misc (8 sources) Start: 02-18-2023 Blood-Glucose Meter,Continuous (Dexcom G7 Word Processor Technician) misc Active 0 .Route 1 February 18, [...] Discontinued 500 mg PO EVERY 12 HOURS 10 0 October 10, 2022 12:00am April 18, 2023 3:09pm Start: 06-26-2022 End: 07-03-2022 take 1 capsule by mouth four times daily cephALEXin (KEFLEX) 500 mg capsule Take 1 capsule by mouth four times daily for 7 days. 28 capsule 0 06/26/2022 07/03/2022 Active Comment on above: Take 1 capsule by mo [facility] four times daily for 7 days. cetirizine hydrochloride 10 mg oral tablet (3 sources) Histamine-1 Receptor Antagonist Start: 06-26-20 End: 07-10-20 take 1 tablet by mouth once daily cetirizine (ZYRTEC) 10 mg tablet Take 1 tablet by mouth once daily for 14 days. 14 tablet 0 06/26/2022 07/10/2022 Active Comment on above: Take 1 tablet by [facility] once daily for 14 days. cholecalciferol 1.25 mg oral capsule (20 sources) Vitamin D Start: 10-01-19 take 1 capsule by mouth every week Cholecalciferol (Vitamin D3) 1,250 mcg (50,000 unit) capsule Active 1250 ug PO EVERY WEEK September 30, 2024 12:00am supplement Start: 07-03-2021 take 1 capsule by [facility] every week cholecalciferol, Vitamin D3, (VITAMIN D3) 1,250 mcg (50,000 unit) cap capsule Indications: Vitamin D deficiency Take 1 capsule by mouth one time a week. 12 capsule 3 07/03/2021 Active Comment on above: Take 1 capsule by [facility] one time a week. ciclopirox 80 mg/ml [...] Comment on above: as directed. DEXCOM G7 HEALTH ADVOCATE misc (12 sources) Start: 02-18-2023 DEXCOM G7 [...] 2 times daily. 03/30/2024 Active DME [facility] (12 sources) Start: 03-17-20 DME [facility] See Instructions, Carpal Tunnel Brace to right wrist QHS, # 1 EA, 0 Refill(s), Pharmacy: [facility] #[id number], Carpal tunnel syndrome of right wrist Pain and swelling of right wrist, 155, cm, 03/17/24 7:21:00 EDT, Height, 109.3, kg, 08/27/24 7:21:00 EDT, Dosing Weight Start Date: 03/17/24 Status: Ordered Quantity: 1.0 Unit: EA Repeat number: 1 Indications: Carpal tunnel syndrome, right upper limb; Pain in right wrist; Start: 03-17-2024 DME Raymon outosha See Instructions, Carpal Tunnel Brace to right wrist QHS, # 1 EA, 0 Refill(s), Pharmacy: [facility] #[id number], Carpal tunnel syndrome of right wrist Pain and swelling of right wrist, 155, cm, 03/17/24 7:21:00 EDT, Height, 109.3, kg, 03/17/24 7:21:00 EDT, Dosing Weight Start Date: 03/17/24 Status: Ordered famotidine 10 mg oral tablet (20 sources) Histamine-2 Receptor Antagonist Start: 02-02-2025 take 1 tablet by mouth twice daily Famotidine 10 mg tablet Active 10 mg PO TWICE A DAY February 02, 2025 12:00am Start: 01-20-2025 famotidine 10 mg oral tablet Dose : 10 mg = 1 tab(s), Oral, BID, # 28 tab(s), 0 Refill(s), Pharmacy: [facility] [place]/pharmacy #[id number], 152, cm, 01/20/25 10:54:00 EDT, Height, kg, 01/20/25 10:54:00 EDT, Dosing Weight Start Date: 01/20/25 Status: Ordered Quantity: 28.0 Unit: tab(s) Repeat number: 1 Start: 04-05-2021 End: 01-19-2023 take 1 tablet by mouth twice daily famotidine (PEPCID) 20 mg tablet Indications: Generalized abdominal pain Take 1 tablet by mouth twice daily. 60 tablet 1 04/05/2021 01/19/2023 Discontinued Comment on above: Take 1 tablet by jimi twice daily. fenofibrate 48 mg oral tablet (13 sources) Peroxisome Proliferator Receptor alpha Agonist Start: 05-09-20 take 1 tablet by mouth at bedtime Fenofibrate Nanocrystallized 48 mg tablet Active 48 mg PO AT BEDTIME 30 30 5 May 09, 2024 12:00am ferrous sulfate 325 mg oral tablet (20 sources) Start: 02-07-20 25 take 1 tablet by mouth every other day Ferrous Sulfate 325 mg (65 mg iron) tablet Active 325 mg PO EVERY OTHER DAY September 30, 2024 12:00am iron Start: 06-21-2023 End: 08-28-2024 take 1 tablet [...] oral tablet (1 source) Azole Antifungal Start: 2 End: 2 take 1 tablet by mouth once daily fluconazole (DIFLUCAN) 150 mg tablet Take 1 tablet by mouth once daily for 1 day. 1 tablet 0 02/16/2022 02/17/2022 Active Comment on above: Take 1 tablet by jimi th once daily for 1 day. FLUoxetine 40 mg oral capsule (20 sources) Serotonin Reuptake Inhibitor Start: 9 End: 5 take 1 capsule by mouth once daily Fluoxetine 40 mg capsule Active 40 mg PO DAILY March 11, 2024 12:00am depression Comment on above: Take 1 capsule by [facility] once daily. Fluticasone Propion-Salmeterol (7 sources) Corticosteroid, beta2-Adrenergic Agonist Start: 5 Fluticasone Propion-Salmeterol (Advair Diskus) 500-50 mcg/dose blister with device Active 1 NMA INHALATION Q12H 60 5 October 30, 2024 12:00am Asthma Moderate persistent asthma, uncomplicated astham Start: 10-30-2024 Fluticasone Pr opion-Salmeterol (Advair Diskus) 500-50 mcg/dose blister with device Active 1 NMA INHALATION Q12H 60 October 30, 2024 12:00am gabapentin 300 mg oral capsule (17 sources) Anti-epileptic Agent Start: 09-30-2024 take 1 capsule by mouth three times daily Gabapentin 300 mg capsule Active 300 mg PO THREE TIMES A DAY 90 30 0 September 30, 2024 12:00am Neuropathy Polyneuropathy, unspecified pain hydroCHLOROthiazide 25 mg oral tablet (20 sources) Thiazide Diuretic Start: 11-06-2022 take 1 tablet by mouth once [...] 13, 2020 1:00am February 18, 2023 12:07pm dm Start: 02-12-2019 End: 10-09-2019 Insulin Degludec 100 UNIT/ML insulin pen Discontinued 110 U subcut DAILY February 12, 2019 12:00am October 09, 2019 8:13am DM Start: 01-24-2017 End: 04-11-2018 Insulin Degludec 100 UNIT/ML insulin pen Discontinued 80 U SQ DAILY January 24, 2017 12:00am April 11, 2018 2:09pm DIABETES Comment on above: Inject 100 Units sub cutaneously every morning. Inject 110 Units sub cutaneously every morning. 3 ml insulin, regular, human 500 unt/ml pen injector (20 sources) Insulin Start: 03-12-2024 Insulin Regular Hum U-500 Conc (Humulin R U-500 (Conc) Kwikpen) 500 unit/mL (3 mL) insulin pen Active 100 U SC THREE TIMES A DAY 18 5 March 12, 2024 8:43am Diabetes mellitus Type 2 diabetes mellitus without complications DM Increase by 10u/meal if glucose >[address] Cervantes's office, hold if glucose Start: 03-07-2024 End: 03-12-2024 Insulin Regular Hum U-500 Co nc (Humulin R U-500 (Conc) Kwikpen) 500 unit/mL (3 mL) insulin pen Discontinued 5 U SC THREE TIMES A DAY 23.4 5 March 07, 2024 3:35pm March 12, 2024 8:45am Diabetes mellitus Type 2 diabetes mellitus without complications Increase by 10u/meal if glucose >[address] Cervantes's office, hold if glucose Start: 06-04-2023 HumuLIN R Kwik PEN (CONCENTRATED) insulin 500 units/mL 3 mL Subcutaneous (INT) Start Date: 06/21/23 Status: Ordered Repeat number: 1 Start: 06-03-2023 End: 03-07-2024 Insulin Regular Hum U-500 Co nc (Humulin R U-500 (Conc) Kwikpen) 500 unit/mL (3 mL) insulin pen Discontinued 130 U SC THREE TIMES A DAY 23.4 5 September 23, 2023 10:07am March 07, 2024 3:35pm Diabetes mellitus Type 2 diabetes mellitus without complications Comment on above: INJECT 130 UNITS (0. 26 ML) SUBCUTANEOUSLY THREE TIMES A DAY ketoconazole 20 mg/ml topical cream (4 sources) Azole Antifungal Start: 09-02-2024 ketoconazole 2% topical cream 0 Refill(s), 106 Start Date: 09/02/24 Status: Ordered Repeat number: 1 lactic acid 40 mg/ml / urea 100 mg/ml topical cream (15 sources) urea 10 % Cream Apply 1 [...] mcg tablet Active 200 ug PO DAILY 90 September 23, 2023 10:08am Hypothyroidism Hypothyroidism, unspecified hypothyroidism Start: 06-21-2022 End: 07-21-2022 take 1 tablet [...] 06, 2019 12:00am February 18, 2023 12:36pm THYROID Start: 10-06-2019 End: 02-18-2023 take 350 ug by mouth once daily Levothyroxine Disconti nued 350 MCG PO DAILY October 06, 2019 12:00am February 18, 2023 12:36pm Start: 08-18-2015 End: 04-11-2018 take 1 tablet by mouth once daily Levothyroxine 300 MCG tablet Discontinued 300 ug PO DAILY August 18, 2015 1:00am April 11, 2018 2:10pm HYPOTHYROID Comment on above: Take 1 tablet by jimi th once daily. Take on empty stomach. For thyroid. Take along with 200 mcg dose Take once daily in a ddition to 150 mcg for thyroid Take 1 tablet by jiim th once daily. Take on empty stomach. [...] tablet (20 sources) Nonsteroidal Anti-inflammatory Drug Start: End: naproxen 500 mg oral tablet Dose : 500 mg = 1 tab(s), Oral, BID, X 15 day(s), # 30 tab(s), 0 Refill(s), 04/01/24 8:10:00 AM EDT, Pharmacy: [facility]- [...] 12, 2017 7:43pm April 11, 2018 2:10pm PAIN Comment on above: Take 1 tablet by [...] / nitrofurantoin, monohydrate 75 mg oral capsule (7 sources) Nitrofuran Antibacterial Start: 01-20-2025 End: 01-25-2025 Macrobid 100 mg oral capsule Dose : 100 mg = 1 cap(s), Oral, BID, Take with food, X 5 day(s), # 10 cap(s), 0 Refill(s), 01/25/25 4:22:00 PM EDT, Pharmacy: [facility] [id number], 152, cm, 01/20/25 10:54:00 EDT, Height, 111.5, kg, 01/20/25 10:54:00 EDT, Dosing Weight Start Date: 01/20/25 Stop Date: 01/25/25 Status: Ordered Quantity: 10.0 Unit: cap(s) Repeat number: 1 Start: 03-20-2024 End: 03-27-2024 Macrobid 100 mg oral capsule Dose : 100 mg = 1 cap(s), Oral, BID, Take with food, X 7 day(s), # 14 cap(s), 0 Refill(s), 03/27/24 10:27:00 AM EDT, Pharmacy: [facility] #[id number], Enterococcus UTI, 155, cm, 03/17/24 7:21:00 [...] 0 Refill(s), 01/19/24 9:25:00 AM EDT, [id number], 153, cm, 01/14/24 7:37:00 EDT, Height, 112.3, kg, 01/14/24 7:37:00 EDT, Dosing Weight Start Date: 01/14/24 Stop Date: 01/19/24 Status: Ordered Oxygen (12 sources) oxygen gas Inhal e 2 L As directed. Please provide: small portable tanks This order certifies that this patient is under my care and that I, or a Nurse Practitioner or Physician's Activities Director [employer] had a [id number] Encounter with them. Based upon those findings, the equipment/supplies listed above are medically necessary. Active pantoprazole 40 mg delayed release oral tablet (20 sources) Proton Pump Inhibitor Start: 04-07-20 End: 09-22-19 take 1 tablet by mouth twice daily Pantoprazole 40 mg Tablet,Delayed Release (Dr/Ec) Active 40 mg PO TWICE A DAY 60 30 2 April 07, 2024 12:00am gerd Start: 01-19-2023 End: 06-23-2024 take 1 tablet [...] 1/2 hr before meal. polyethylene glycol 3350 [id number] mg / potassium chloride 2970 mg / sodium bicarbonate 6740 mg / sodium chloride 5860 mg / sodium sulfate 97996 mg powder for oral solution (5 sources) [...] a week. sucralfate 1000 mg oral tablet (20 sources) Aluminum Complex Start: 04-13-2024 sucralfate 1 g oral tablet 0 Refill(s) Start Date: 04/13/24 Status: Ordered Repeat number: 1 Start: 04-07-2024 take 1 tablet by jimi th 1 hour(s) before mealtime Sucralfate 1 gram Tablet Active 1 g PO ONE HOURS BEFORE MEALS & BED 42 14 0 April 07, 2024 12:00am gerd TENS unit and electrodes cmp k (20 sources) Start: 11-02-2016 TENS unit and electrodes cmpk 0 11/02/2016 Active Start: 11-02-2016 TENS unit and electrodes cmpk Tirzepatide (Mounjaro) 5 mg/ 0.5 mL pen injector (2 sources) Start: 02-04-2025 Tirzepatide (Carrie sanders) 5 mg/0.5 mL pen injector Active 5 mg SC EVERY WEEK 2 5 February 04, 2025 12:00am Diabetes mellitus Type 2 diabetes mellitus with hyperglycemia 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 Completed/Discontinued Medications Medication Drug Class(es) Dates Sig (Normalized) Sig (Original) acetaminophen 325 mg / HYDROcodone bitartrate 5 mg oral tablet (20 sources) Opioid Agonist Start: 06-08-2022 End: 04-18-2023 Hydrocodone-Acetami nophen 5-325 mg tablet Discontinued 1 {tbl} PO EVERY 4 HOURS NEEDED as needed for Pain 15 2 0 June 08, 2022 April 18, 2023 3:10pm Toothache Other specified disorders of teeth and supporting structures Start: 06-08-2022 End: 04-18-2023 take 1 tablet by mouth every four hours as needed Hydrocodone-Acetaminophen Discontinued 1 TABLET PO EVERY 4 HOURS NEEDED 15 2 June 08, 2022 April 18, 2023 3:10pm Start: 06-13-2020 End: 06-15-2020 Hydrocodone-Acetaminophen 1 TABLET tablet Discontinued 1 {tbl} PO EVERY 4 HOURS NEEDED as needed for Pain 10 2 0 June 13, 2020 June 14, 2020 1:00am June 15, 2020 1:03am Paronychia of finger of right hand Cellulitis of right finger Start: 06-13-2020 End: 06-15-2020 take 1 tablet by mouth every four hours as needed Hydrocodone-Acetaminophen Discontinued 1 TABLET PO EVERY 4 HOURS NEEDED 10 2 June 13, 2019June 15, 2020 1:03am 200 actuat albuterol 0.09 mg/actuat dry powder inhaler (20 sources) beta2-Adrenergic Agonist Start: 10-30-2024 Albut adrian Sulfate 90 mcg/actuation HFA aerosol inhaler Active 2 NMA INHALATION EVERY 4-6 HOURS as needed for shortness of breath or wheezing 8.5 0 October 30, 2024 12:00am Asthma Moderate persistent asthma, uncomplicated Start: 10-30-2024 End: 10-30-2024 Albuterol Sulfate 90 mcg/act uation aerosol powdr breath activated Discontinued 2 NMA INHALATION EVERY 6 HOURS as needed for shortness of breath or wheezing 1 5 October 30, 2024 12:55pm October 30, 2024 4:13pm Cough Cough, unspecified Start: 10-01-2022 End: 10-11-2022 take 2 puff(s) [...] of breath for up to 10 days. Albuterol (Eqv-Proventil HFA) 90 mcg/inh inhalation aerosol (2 sources) Start: take 2 puff(s) by inhalation every four to six hours as needed Albuterol (Eqv-Proventil HFA) 90 mcg/inh inhalation aerosol Dose : 180 mcg = 2 inh, Inhalation, q4h, INHALE 2 PUFFS EVERY 4 TO 6 HOURS NEEDED FOR SHORTNESS OF BREATH OR FOR WHEEZE, # 6.7 gram(s), 1 Refill(s), Pharmacy: [facility] [id number], 150, cm, 12/02/24 13:05:00 EDT, Height, kg, 12/02/24 13:05:00 EDT, Dosing Weight Start Date: 01/09/25 Status: Ordered Quantity: 6.7 Unit: g Repeat number: 2 amLODIPine 2.5 mg oral tablet (20 sources) Dihydropyridine Calcium Channel Rivka Start: End: take 1 tablet by mouth once daily Amlodipine 2.5 mg tablet Discontinued 2.5 mg PO DAILY 90 September 23, 2023 10:07am April 07, 2024 2:06pm Hypertension Essential (primary) hypertension HTN amoxicillin 50 mg/ml oral suspension (1 source) Penicillin-class Antibacterial Start: 023 End: amoxicillin 250 mg oral liquid (AMOXIL) Start: 08-30-2022 End: 08-30-2022 amoxicillin 250 mg oral liqu id (AMOXIL) atorvastatin 20 mg oral tablet (20 sources) HMG-CoA Reductase Inhibitor Start: 10-06-2019 End: 01-08-2025 take 1 tablet by mouth at bedtime Atorvastatin 20 MG tablet Discontinued 20 mg PO AT BEDTIME October 06, 2019 12:00am May 09, 2024 7:21pm CHOLESTEROL Start: 08-18-2015 End: 04-11-2018 take 2 tablets [...] once daily. azithromycin 250 mg oral tablet (16 sources) Macrolide Antimicrobial Start: 01-27-2024 End: 03-04-2024 Azithromycin 250 mg tablet Discontinued 250 mg PO .COMPLEX 12 0 January 27, 2024 12:00am March 04, 2024 [...] ne, then, 1 tablet daily until gone. Blood-Glucose Meter (True Metrix Glucose Meter) misc (3 sources) Start: 01-26-2025 End: 01-26-2025 Blood-Glucose Meter (True Metrix Glucose Meter) misc Discontinued 0 .Route 1 January 26, 2025 12:00am January 26, 2025 2:36pm Diabetes mellitus Type 2 diabetes mellitus with hyperglycemia half-way (current) use of insulin 4 times daily Blood-Glucose Sensor (Dexcom G7 Sensor) device (14 sources) Start: 02-18-2023 End: 01-26-2025 Blood-Glucose Sensor (Dexcom G7 Sensor) device Discontinued 0 .Route 3 5 February 18, 2023 12:00am January 26, 2025 1:08pm Diabetes mellitus Type 2 diabetes mellitus without complications diabetes 1 sensor q 10 days Start: 02-18-2023 Blood-Glucose Sensor (Dexcom G7 Sensor) device Active 0 .Route 3 February 18, 2023 12:00am 1 sensor q 10 days Blood-Glucose,Word Processor Technician,Cont (Dexcom G7 Word Processor Technician) misc (6 sources) Start: 02-18-2023 End: 01-26-2025 Blood-Glucose,Word Processor Technician,Cont (Dexcom G7 Word Processor Technician) misc Discontinued 0 .Route 1 0 February 18, 2023 12:00am January 26, 2025 1:09pm Diabetes mellitus Type 2 diabetes mellitus without complications diabetes As directed Start: 02-18-2023 Blood-Glucose, Word Processor Technician,Cont (Dexcom G7 Word Processor Technician) misc Active 0 .Route 1 February 18, 2023 12:00am As directed cefdinir 300 mg oral capsule (20 sources) Cephalosporin Antibacterial Start: 04-20-2023 End: 06-03-2023 take 1 capsule by mouth twice daily Cefdinir 300 mg capsule Discontinued 300 mg PO TWICE A DAY 14 7 0 April 20, 2023 12:00am June 03, 2023 2:57pm Start: 02-11-2022 End: 04-18-2023 take 1 capsule by mouth twice daily Cefdinir 300 mg capsule Discontinued 300 mg PO TWICE A DAY 10 February 11, 2022 12:00am April 18, 2023 3:09pm Comment on above: Take by mouth. ciprofloxacin 500 mg oral tablet (18 sources) Quinolone Antimicrobial Start: 01-14-20 End: 02-05-20 take 1 tablet by mouth every twelve hours Ciprofloxacin Hcl 500 mg tablet Discontinued 500 mg PO Q12H 8 0 January 13, 2025 12:00am February 04, 2025 11:04am Start: 11-03-2024 End: 12-30-2024 take 1 tablet by mouth twice daily Ciprofloxacin Hcl 500 mg tablet Discontinued 500 mg PO TWICE A DAY 6 0 November 03, 2024 12:00am December 30, 2024 [...] Comment on above: Take 1 tablet by [facility] twice daily for 7 days. FOR 7 DAYS. clindamycin 300 mg oral capsule (20 sources) Lincosamide Antibacterial Start: 022 End: 023 take 1 capsule by mouth every six hours Clindamycin Hcl (Cleocin Hcl) 300 mg capsule Discontinued 300 mg PO EVERY 6 HOURS 40 0 June 08, 2022 1:00am April 18, 2023 3:09pm cyclobenzaprine hydrochloride 5 mg oral tablet (20 sources) Muscle Relaxant Start: 018 End: take 1 tablet by mouth three times daily as needed for muscle spasms Cyclobenzaprine 5 mg tablet Discontinued 5 mg PO THREE TIMES A DAY as needed for muscle spasm 30 0 March 28, 2018 12:00am April 11, 2018 2:09pm Strain of muscle, fascia and tendon of lower back, initial encounter dexamethasone 6 mg oral tablet (20 sources) Corticosteroid Start: End: take 1 tablet by mouth once daily Dexamethasone 6 mg tablet Discontinued 6 mg PO DAILY 5 0 December 30, 2024 12:00am January 10, 2025 10:46pm Start: 03-07-2024 End: 04-04-2024 take 1 tablet by mouth once daily Dexamethasone 6 mg tablet Discontinued 6 mg PO DAILY 6 6 0 March 07, 2024 12:00am April 04, 2024 8:09am Start: 01-22-2024 End: 03-04-2024 take 1 tablet by mouth once daily Dexamethasone 6 mg tablet Discontinued 6 mg PO DAILY 5 0 January 22, 2024 12:00am March 04, 2024 [...] 0 Refill(s) Start Date: 06/08/23 Stop Date: 11/23/23 Status: Ordered docusate sodium 100 mg oral capsule (20 sources) Start: 06-13-2020 End: 04-18-2023 take 1 capsule by mouth once daily as needed for constipation Docusate Sodium 100 MG capsule Discontinued 100 mg PO DAILY as needed for Constipation September 07, 2020 1:34am April 18, 2023 3:10pm doxycycline hyclate 100 mg oral capsule (17 sources) Tetracyclin e-class Drug Start: 09-23-2023 End: 01-05-2024 take 1 capsule by mouth twice daily at mealtime Doxycycline Hyclate 100 mg capsule Discontinued 100 mg PO TWICE A DAY 14 0 September 23, 2023 1:00am January 05, 2024 1:14pm Soft tissue infection Local infection of the skin and subcutaneous tissue, unspecified PLEASE TAKE WITH FOOD Start: 08-31-2022 End: [...] 7 days. Take 1 tablet by jimi th twice daily for 10 days. Dulaglutide (20 sources) GLP-1 Receptor Agonist Start: 07-28-2024 End: 02-04-2025 Dulaglutide (Trulicity) 4.5 mg/0.5 mL pen injector Discontinued 4.5 mg SC NARVAEZ July 28, 2024 1:00am February 04, 2025 11:39am diabetes Start: 07-28-2024 Dulaglutide (T rulicity) 4.5 mg/0.5 mL pen injector Active 4.5 mg SC NARVAEZ July 28, 2024 1:00am diabetes Start: 07-28-2024 Dulaglutide (T rulicity) 4.5 mg/0.5 mL pen injector Active 4.5 mg SC NARVAEZ July 28, 2024 1:00am Start: 06-08-2024 End: 07-28-2024 Dulaglutide (Trulicity) 4.5 mg/0.5 mL pen injector Discontinued 4.5 mg SC EVERY WEEK 2 June 08, 2024 1:00am July 28, 2024 3:38pm Diabetes mellitus Type 2 diabetes mellitus with hyperglycemia 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 Start: 06-08-2024 End: 07-28-2024 Dulaglutide (Trulicity) 4.5 mg/0.5 mL pen injector Discontinued 4.5 mg SC EVERY WEEK 2 June 08, 2024 1:00am July 28, 2024 3:38pm Start: 03-12-2024 End: 06-08-2024 Dulaglutide (Trulicity) 3 mg /0.5 mL pen injector Discontinued 3 mg SC EVERY WEEK 2 March 12, 2024 12:00am June 08, 2024 2:24pm Diabetes mellitus Type 2 diabetes mellitus with hyperglycemia 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 DM Start: 03-12-2024 End: 06-08-2024 Dulaglutide (Trulicity) 3 [...] 23, 2023 10:06am March 12, 2024 8:44am Diabetes mellitus Type 2 diabetes mellitus without complications Start: 06-10-2023 End: 09-23-2023 Dulaglutide (Trulicity) 0.75 mg/0.5 mL pen injector Discontinued 0.75 mg SC EVERY WEEK 2 July 25, 2023 11:49am September 23, 2023 10:03am Diabetes mellitus Type 2 diabetes mellitus with hyperglycemia half-way (current) use of insulin Start: 03-14-2022 End: 06-21-2022 inject 0.75 mg by subcutaneous injection every week dulaglutide (TRULICITY) 0.75 mg/0.5 mL pen injector Inject 0.75 mg subcutaneously one time a week. 4 Each 2 03/14/2022 06/21/2022 Discontinued Comment on above: Inject 0.75 mg subcu taneously one time a week. ergocalciferol 1.25 mg oral capsule (20 sources) Provitamin D2 Compound Start: End: Ergocalciferol (Vitamin D2) 50,000 UNIT capsule Discontinued 53530 U PO Q7D September 12, 2017 1:00am April 11, 2018 2:09pm SUPPLEMENT Fluticasone Furoate (20 sources) Corticosteroid Start: End: take 200 ug by inhalation every twenty-four hours Fluticasone Furoate (Arnuity Ellipta) 200 mcg/actuation blister with device Discontinued 1 NMA INHALATION Q24H 30 September 04, 2024 1:00am October 30, 2024 1:05pm Start: 09-04-2024 End: 10-30-2024 take 200 ug by inhalation every twenty-four [...] / vilanterol 0.025 mg/actuat dry powder inhaler (7 sources) Corticosteroid, beta2-Adrenergic Agonist Start: 5 End: 5 Fluticasone Furoate-Vilanterol (Breo Ellipta) 200-25 mcg/dose blister with device Discontinued 1 NMA INHALATION Q24H 60 2 October 30, 2024 12:00am October 30, 2024 4:17pm Asthma Unspecified asthma, uncomplicated furosemide 20 mg oral tablet (20 sources) Loop Diuretic Start: 3 End: 4 take 1 tablet by mouth once daily Furosemide (Lasix) 20 mg tablet Discontinued 20 mg PO DAILY 30 0 April 20, 2023 12:00am April 07, 2024 2:06pm Comment on above: Take 1 tablet by [facility] once daily. Gallium Ga 68 Dotatate (Netspot) 0.5-5.94 millicurie (1 source) Start: 5 End: 5 0.5-5.94 millicurie, Intravenous, ONCE, 1 dose, On Cristela 07/30/24 at 0815 500 ml hetastarch 60 mg/ml injection (2 sources) Plasma Volume Map Drafter Start: 5 End: 5 NEEDED, Starting on Cristela 09/03/24 at 1323, Until Cristela 09/03/24 at 1323, Intra-op/Intra-Proc Start: 06-23-2024 End: 06-23-2024 CONTINUOUS NEEDED, Starti ng on e 06/23/24 at 1422, Until Sat06/23/24 at 1422, Intra-op/Intra-Proc Insulin Degludec (Tresiba Flextouch U-200) 200 unit/mL (3 mL) insulin pen (14 sources) Start: 04-18-2023 End: 06-03-2023 Insulin Degludec [...] 21, 2021 6:33am April 18, 2023 3:21pm dm 46 base plus sliding scale Please contact the information source for Protocol details. Start: 04-04-2019 End: 07-21-2021 Insulin Lispro 100 UNIT/ML i nsulin pen Discontinued 0 U subcut THREE TIMES DAILY BEFORE MEALS 1 0 October 09, 2019 12:00am July 21, 2021 [...] MG/ML injection 1-171 mL (1 source) Start: End: 1-171 mL, Intravenous, ONCE, 1 dose, On Cristela 12/24/24 at 1300, Extravasation Risk, CT Procedure Iohexol (OMNIPAQUE) 9 MG/ML Bottle 1,000 mL (1 source) Start: 5 End: take 1 dose by mouth once 1,000 mL, Oral, ONCE, 1 dose, On Cristela 12/24/24 at 1300, For administration to inpatients, to be given by RN on inpatient nursing unit., CT Procedure isopropyl alcohol 0.7 ml/ml medicated pad (20 sources) Start: 3 End: 3 Alcohol Swabs (Sure-Prep Alcohol Prep Pads) pads, medicated Discontinued 1 NMA TOPICAL .qow 100 5 April 17, 2023 12:00am April 18, 2023 3:09pm Diabetes mellitus Type 2 diabetes mellitus without complications Start: 04-17-2023 End: 04-18-2023 Alcohol Swabs (Sure-Prep Alc ohol Prep Pads) pads, medicated Discontinued 1 PAD TOPICAL .qow 100 April 17, 2023 12:00am April 18, 2023 3:09pm Start: 03-31-2018 ALCOHOL PREP P ADS padm Indications: Uncontrolled type 2 diabetes mellitus without complication, with long-term current use of insulin TEST BLOOD SUGARS 3 TIMES DAILY 100 Each 03/31/2018 Active Comment on above: TEST BLOOD SUGARS 3 TIMES DAILY levonorgestrel 0.784675 mg/hr intrauterine system (20 sources) Progestin, Progestin-containing Intrauterine Device Start: 08-18-2015 End: 04-11-2018 Levonorgestrel 1 EACH intrauterine device Discontinued 1 NMA IY ONE TIME August 18, 2015 1:00am April 11, 2018 2:10pm CONTROL Levonorgestrel ( Mirena, 52 MG,) 20 MCG/DAY [...] 11, 2018 12:00am August 12, 2023 9:01am BP Start: 08-18-2015 End: 09-13-2017 take 2 tablets by mouth once daily Lisinopril 20 MG tablet Discontinued 40 mg PO DAILY August 18, 2015 1:00am September 13, 2017 12:23pm BLOOD PRESSURE Start: 08-18-2015 End: 09-13-2017 take 40 mg by mouth once daily Lisinopril Discontinued 40 MG PO DAILY August 18, 2015 1:00am September 13, 2017 12:23pm Comment on above: Take 1 tablet by jimi th once daily. metFORMIN hydrochloride 500 mg oral tablet (20 sources) Biguanide Start: End: take 2 tablets by mouth twice daily Metformin 500 mg tablet Discontinued 1000 mg PO TWICE A DAY 360 March 12, 2024 8:44am April 14, 2024 9:32am Diabetes mellitus Type 2 diabetes mellitus with hyperglycemia half-way (current) use of insulin DM Start: 06-21-2023 End: 03-12-2024 take 1 tablet by mouth twice daily Metformin 500 mg tablet Discontinued 500 mg PO TWICE A DAY March 11, 2024 12:00am March 12, 2024 8:45am Start: 03-29-2021 End: 09-23-2023 Metformin 500 mg tablet exte nded release 24 hr Discontinued 1000 mg PO DAILY March 29, 2021 12:00am September 23, 2023 10:09am dm Start: 03-29-2021 take 1000 mg by mout h once daily Metformin Active 1000 MG PO DAILY March 29, 2021 12:00am Start: 02-16-2021 End: 03-07-2024 Metformin 500 mg tablet exte nded release 24 hr Discontinued 1000 mg PO TWICE A DAY 360 September 23, 2023 10:08am March 07, 2024 3:34pm Diabetes mellitus Type 2 diabetes mellitus without complications dm Comment on above: Take 2 tablets by [facility] twice daily. 10 ml methylene blue 10 mg/ml injection (2 sources) Oxidation-Reduction Agent Start: 09-03-2024 End: 09-03-2024 NEEDED, Starting on Cristela 09/03/24 at 1323, Until Cristela 09/03/24 at 1323, Intra-op/Intra-Proc Start: 06-23-2024 End: 06-23-2024 NEEDED, Starting on Tu08/24/23 at 1421, Until Sat06/23/24 at 1421, Intra-op/Intra-Proc metroNIDAZOLE 500 mg oral tablet (14 sources) Nitroimidazole Antimicrobial Start: 04-20-2023 End: 01-05-2024 take 1 tablet by mouth three times daily Metronidazole 500 mg Tablet Discontinued 500 mg PO THREE TIMES A DAY 21 7 0 April 20, 2023 12:00am January 05, 2024 1:14pm Nirmatrelvir-Ritona vir (Paxlovid) 300 mg (150 mg x 2)-100 mg tablets,dose pack (13 sources) Start: 01-22-2024 End: 03-04-2024 Nirmatrelvir-Riton avir (Paxlovid) 300 mg (150 mg x 2)-100 mg tablets,dose pack Discontinued 0 PO .COMPLEX 30 January 22, 2024 12:00am March 04, 2024 12:56pm take TWO 150 mg tablets of nirmatrelvir with ONE 100 mg tablet of ritonavir twice daily for 5 days PO Start: 01-22-2024 End: 03-04-2024 Nirmatrelvir-Ritonavir (Paxl ovid) 300 mg (150 mg x 2)-100 mg tablets,dose pack Discontinued 0 PO .COMPLEX January 22, 2024 12:00am March 04, 2024 12:56pm take TWO 150 mg tablets of nirmatrelvir with ONE 100 mg tablet of ritonavir twice daily for 5 days PO nystatin 517441 unt/ml oral suspension (20 sources) Polyene Antifungal Start: 03-07-2024 End: 04-04-2024 take [id number] [IU] by mouth four times daily Nystatin 100,000 unit/mL Suspension Discontinued [id number] U PO 4 TIMES DAILY 140 7 0 March 07, 2024 12:00am April 04, 2024 [...] 11, 2024 12:00am April 07, 2024 2:07pm GERD ondansetron 4 mg disintegrating oral tablet (20 sources) Serotonin-3 Receptor Antagonist Start: 08-12-2022 End: 01-05-2024 take 1 tablet by mouth every eight hours as needed for nausea and vomiting Ondansetron 4 mg tablet,disintegrating Discontinued 4 mg PO Q8H as needed for nausea and vomiting 10 August 12, 2022 1:00am January 05, 2024 1:14pm phenazopyridine hydrochloride 200 mg oral tablet (20 sources) Start: 10-10-2022 End: 04-18-2023 take 1 tablet by mouth twice daily as needed for pain Phenazopyridine (Pyridium) 200 mg tablet Discontinued 200 mg PO TWICE DAILY NEEDED as needed for Pain 10 October 10, 2022 12:00am April 18, 2023 [...] Take 1 tablet by jimi once daily. proparacaine hydrochloride 5 mg/ml ophthalmic solution (2 sources) Local Anesthetic Start: 03-01-2023 End: 03-02-2023 proparacaine 0.5 % 1 Drop (ALCAINE) Start: 02-27-2022 End: 02-28-2022 proparacaine 0.5 % 1 Drop (A LCAINE) 20 ml sodium chloride 9 mg/m l injection (1 source) Start: 12-24-2024 End: 12-24-2024 1-100 mL, Intravenous, ONCE NEEDED, 1 dose, Starting on Cristela 12/24/24 at 1252, Until Cristela 6 at 1354, Flush, CT Procedure Tirzepatide (Mounjaro) 2.5 mg/0.5 mL pen injector (13 sources) Start: 06-03-2023 End: 06-10-2023 Tirzepatide (Mounjaro) 2.5 mg/0.5 mL pen injector Discontinued 2.5 mg SC EVERY WEEK 2 16 10June 03, 2023 1:00am June 10, 2023 9:16am Diabetes mellitus Type 2 diabetes mellitus without complications Start: 06-03-2023 End: 06-10-2023 Tirzepatide (Mounjaro) 2.5 m g/0.5 mL pen injector Discontinued 2.5 mg SC [...] disorder; Translations: [Other specified anxiety disorders] Chronic Anxiety disorders (20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 [place], [place] [address] Urea nitrogen [Mass/Vol] 17 mg/dL Normal 7-18 [facility] Comment on above: Performed By: #### A DANIAL, CMP, ADIFF, CBC, PBNP, GFR #### [place] [address] [place], [place] [address] LABORATORYOrdered By: SYSTEM SYSTEM on 01-20-2025 Albumin BCP dye [Mass/Vol] 2.7 G/dL Low 3.5 - 5.0 G/dL AO ADM SS Albumin/Globulin [Mass ratio] 0.5 {ratio} Low 1.1 - 2.5 ratio AO ADM SS ALP [Catalytic activity/Vol] 266 U/L High 40 - 135 U/L AO ADM SS ALT With P-5'-P [Catalytic activity/Vol] 93 U/L High 14 - 59 U/L AO ADM SS AST With P-5'-P [Catalytic activity/Vol] 95 U/L High 10 - 40 U/L AO ADM SS Basophils (Bld) [#/Vol] 0.1 103/mcL Normal 0.0 - 0.3 10^3/mcL AO Workflow SS Basophils/100 WBC (Bld) 0.5 % Normal 0.0 - 2.5 % AO Workflow SS Bilirubin [Mass/Vol] 0.6 mg/dL Normal 0.2 - 1 .0 mg/dL AO ADM SS Comment on above: Interpretive Data: U se of this assay is not recommended for patients undergoing treatment with eltrombopag due to the potential for falsely elevated results. Calcium [Mass/Vol] 9.5 mg/dL Normal 8.4 - 10. 2 mg/dL AO ADM SS Chloride [Moles/Vol] 100 mmol/L Normal 98 - 10 7 mmol/L AO ADM SS CO2 [Moles/Vol] 32 mmol/L High 22 - 29 mmol/L AO ADM SS Creatinine [Mass/Vol] 0.69 mg/dL Normal 0.51 - 0.95 mg/dL AO ADM SS Electrolyte Balance 3.0 mEq/L Low 4.0 - 15 .0 mEq/L AO ADM SS Eosinophil, Absolute 0.1 103/mcL Normal 0.0 - 0 .7 10^3/mcL AO Workflow SS Eosinophils/100 WBC (Bld) 1.5 % Normal 0.0 - 6.0 % AO Workflow SS Erythrocyte distribution width (RBC) [Ratio] 17.3 % High 11.5 - 15.5 % AO Workflow SS Estimated Glomerular Filtration Rate 101 ml/min/1.73sqm Invalid Interpretation Code AO Chemistry S [...] factor to calculate the eGFR results. Globulin 5.5 G/dL High 2.7 - 4.4 G/dL AO ADM SS Glucose [Mass/Vol] 261 mg/dL High 70 - 105 mg/dL AO ADM SS Hematocrit (Bld) [Volume fraction] 36.7 % Normal 34.0 - 46.0 % AO Workflow SS Hemoglobin (Bld) [Mass/Vol] 11.8 G/dL Low 12.0 - 16.0 G/dL AO Workflow SS Lymphocytes (Bld) [#/Vol] 2.2 103/mcL Normal 0.9 - 4.3 10^3/mcL AO Workflow SS Lymphocytes/100 WBC (Bld) 22.6 % Normal 20.0 - 40.0 % AO Workflow SS MCH (RBC) [Entitic mass] 25.5 pg Low 27.0 - 33.0 pg AO Workflow SS MCHC 32.1 G/dL Normal 32.0 - 36.0 G/dL AO Workflow SS MCV (RBC) [Entitic vol] 79.5 fL Low 80.0 - 99.0 fL AO Workflow SS Monocytes (Bld) [#/Vol] 0.4 103/mcL Normal 0.1 - 1.4 10^3/mcL AO Workflow SS Monocytes/100 WBC (Bld) 3.9 % Normal 2.0 - 13.0 % AO Workflow SS Neutrophils (Bld) [#/Vol] 7.1 103/mcL Normal 2.3 - 8.1 10^3/mcL AO Workflow SS Neutrophils/100 WBC (Bld) 71.5 % Normal 50.0 - 75.0 % AO Workflow SS Platelet mean volume (Bld) [Entitic vol] 7.8 fL Normal 6.6 - 10.5 fL AO Workflow SS Platelets (Bld) [#/Vol] 201 103/mcL Normal 150 - 450 10^3/mcL AO Workflow SS Potassium [Moles/Vol] 4.9 mmol/L Normal 3.5 - 5.1 mmol/L AO ADM SS Protein [Mass/Vol] 8.2 G/dL Normal 6.4 - 8.2 G/dL AO ADM SS RBC (Bld) [#/Vol] 4.62 106/mcL Normal 4.10 - 5.3 0 10^6/mcL AO Workflow SS Sodium [Moles/Vol] 135 mmol/L Low 136 - 145 mmol/L AO ADM SS Urea nitrogen [Mass/Vol] 17 mg/dL Normal 7 - 18 mg/dL AO ADM SS Urea nitrogen/Creatinine [Mass ratio] 25 ratio Normal 7 - 27 ratio AO ADM SS WBC (Bld) [#/Vol] 9.9 103/mcL Normal 4.5 - 10.8 10^3/mcL AO Workflow SS No Panel Informationon 01-20 Culture Urine 10,000 - 50,000 cfu/ ml Mixed growth consistent with normal urogenital keiko. [facility] Work Phone: Urine Cultureon 01-14-2025 URC Normal [facility] Comment on above: Performed By: #### M 100.4190 ####[facility] [address] [place], [address] Bedside Glucoseon 01-13-2025 FINGERSTICK GLU 147 mg/dL High 74-106 [facility] Comment on above: Result Comment: ESPERANZA GEMENT OF PATIENT CARE PER NURSING PROTOCOL Performed By: #### L 501.080 ####[facility] [address] [place], [place], [id number] FINGERSTICK GLU 93 mg/dL Normal 74-106 [facility] Comment on above: Result Comment: ESPERANZA GEMENT OF PATIENT CARE PER NURSING PROTOCOL Performed By: #### L 501.080 ####[facility] [address] [place], [place], [id number] [facility] deOrdered By: Velasquez Vivas on 01-13-2025 Glucose [Mass/Vol] 147 mg/dL High 74-106 [facility] Comment on above: MANAGEMENT OF PATIEN T CARE PER NURSING PROTOCOL Absolute lymphocyte countOrd ered By: Velasquez Vivas on 01-12-2025 Lymphocytes Auto (Unsp spec) [#/Vol] 1.96 10*3/uL 0.83-4.51 [facility] Absolute neutrophil countOrd ered By: Velasquez Vivas on 01-12-2025 Neutrophils (Bld) [#/Vol] 10.2 10*3/uL High 2.0-7.7 [facility] Anion gap in Serum or Plasma Ordered By: Velasquez Vivas on 01-12-2025 Anion gap [Moles/Vol] 8 mmol/L 5-15 [facility] Automated lymphocyte count a s percentage of total leukocytesOrdered By: Velasquez Vivas on 01-12-2025 Lymphocytes/100 WBC Auto (Unsp spec) 14.4 % Low 19-41 [facility] BUN/creatinine ratioOrdered By: Velasquez Vivas on 01-12-2025 Urea nitrogen/Creatinine [Mass ratio] 24.2 mg/mg High 10-20 [facility] Basic Metabolic Profile (BMP )on 01-12-2025 BUN/CRE 24.2 RATIO High 05-10 [facility] Comment on above: Performed By: #### L 100.0100, L500.2500 ####[facility] [address] [place], [address] Calcium [Mass/Vol] 8.9 mg/dL Normal 7.6-11.0 [facility] Comment on above: Performed By: #### L 100.0100, L500.2500 ####[facility] [address] [place], [address] Chloride [Moles/Vol] 105 mmol/L Normal 98-108 [facility] Comment on above: Performed By: #### L 100.0100, L500.2500 ####[facility] [address] [place], [address] CO2 [Moles/Vol] 24.5 mmol/L Normal 21.0-32.0 [facility] Comment on above: Performed By: #### L 100.0100, L500.2500 ####[facility] [address] [place], [address] Creatinine [Mass/Vol] 0.81 mg/dL Normal 0.70-1.20 [facility] Comment on above: Performed By: #### L 100.0100, L500.2500 ####[facility] [address] [place], [address] ECRCL 87.96 ml/min Normal 50-250 [facility] Comment on above: Performed By: #### L 100.0100, L500.2500 ####[facility] [address] [place], [address] GAP 8 Normal 5-15 [facility] Comment on above: Performed By: #### L 100.0100, L500.2500 ####[facility] [address] [place], [address] GFR/1.73 sq M.predicted among non-blacks MDRD (S/P/Bld) [Vol rate/Area] 84 mL/min/{1.73_m2} Normal >60 [facility] Comment on above: Result Comment: mL/m in/1.73m2 CKD-EPI Creatinine Equation (2020) Performed By: #### L 100.0100, L500.2500 ####[facility] [address] [place], [address] Glucose [Mass/Vol] 134 mg/dL High 70-99 [facility] Comment on above: Performed By: #### L 100.0100, L500.2500 ####[facility] [address] [place], [address] Potassium [Moles/Vol] 4.5 mmol/L Normal 3.3-5.1 [facility] Comment on above: Performed By: #### L 100.0100, L500.2500 ####[facility] [address] [place], [address] Sodium [Moles/Vol] 138 mmol/L Normal 133-145 [facility] Comment on above: Performed By: #### L 100.0100, L500.2500 ####[facility] [address] [place], [address] Urea nitrogen [Mass/Vol] 20 mg/dL High 4-19 [facility] Comment on above: Performed By: #### L 100.0100, L500.2500 ####[facility] [address] [place], [address] Basophil percentageOrdered B y: Velasquez Vivas on 01-12-2025 Basophils/100 WBC (Bld) 0.2 % 0-1 [facility] Bedside Glucoseon 01-12-2025 FINGERSTICK GLU 185 mg/dL High 74-106 [facility] Comment on above: Result Comment: ESPERANZA VILLALTA OF PATIENT CARE PER NURSING PROTOCOL Performed By: #### L 501.080 ####[facility] [address] [place], [address] FINGERSTICK GLU 119 mg/dL High 74-106 [facility] Comment on above: Result Comment: ESPERANZA GEMENT OF PATIENT CARE PER NURSING PROTOCOL Performed By: #### L 501.080 ####[facility] [address] [place], [address] FINGERSTICK GLU 299 mg/dL High 74-106 [facility] Comment on above: Result Comment: ESPERANZA GEMENT OF PATIENT CARE PER NURSING PROTOCOL Performed By: #### L 501.080 ####[facility] [address] [place], [address] FINGERSTICK GLU 126 mg/dL High 74-106 [facility] Comment on above: Result Comment: ESPERANZA GEMENT OF PATIENT CARE PER NURSING PROTOCOL Performed By: #### L 501.080 ####[facility] [address] [place], [address] CBC W/Diff, Automatedon 06-2 -2024 Absolute Lymph 1.96 X10 3/uL Normal 0.83-4.51 [facility] Comment on above: Performed By: #### L 100.0100, L500.2500 ####[facility] [address] [place], [address] Absolute Neut 10.2 X10 3/uL High 2.0-7.7 [facility] Comment on above: Performed By: #### L 100.0100, L500.2500 ####[facility] [address] [place], [address] Basophils/100 WBC (Bld) 0.2 % Normal 0-1 [facility] Comment on above: Performed By: #### L 100.0100, L500.2500 ####[facility] [address] [place], [address] Eosinophils/100 WBC (Bld) 1.5 % Normal 0-5 [facility] Comment on above: Performed By: #### L 100.0100, L500.2500 ####[facility] [address] [place], [address] Erythrocyte distribution width (RBC) [Ratio] 15.8 % High 11.6-14.6 [facility] Comment on above: Performed By: #### L 100.0100, L500.2500 ####[facility] [address] [place], [address] Hematocrit (Bld) [Volume fraction] 33.4 % Low 37-47 [facility] Comment on above: Performed By: #### L 100.0100, L500.2500 ####[facility] [address] [place], [address] Hemoglobin (Bld) [Mass/Vol] 10.4 g/dL Low 12.0-15.0 [facility] Comment on above: Performed By: #### L 100.0100, L500.2500 ####[facility] [address] [place], [address] IG% 1.500 High 0.0-0.9 [facility] Comment on above: Result Comment: IG% - Immature Granulocytes (promyelocytes, myelocytes andmetamyelocytes) > 1% indicates that a LEFT SHIFT is Present. Performed By: #### L 100.0100, L500.2500 ####[facility] [address] [place], [address] Lymphocytes/100 WBC (Bld) 14.4 % Low 19-41 [facility] Comment on above: Performed By: #### L 100.0100, L500.2500 ####[facility] [address] [place], [address] MCH (RBC) [Entitic mass] 25.6 pg Low 27.0-32.0 [facility] Comment on above: Performed By: #### L 100.0100, L500.2500 ####[facility] [address] [place], [address] MCHC (RBC) [Mass/Vol] 31.1 g/dL Low 32-36 [facility] Comment on above: Performed By: #### L 100.0100, L500.2500 ####[facility] [address] [place], [address] MCV (RBC) [Entitic vol] 82.1 fL Normal 81-99 [facility] Comment on above: Performed By: #### L 100.0100, L500.2500 ####[facility] [address] [place], [address] Monocytes/100 WBC (Bld) 7.5 % Normal 0-10 [facility] Comment on above: Performed By: #### L 100.0100, L500.2500 ####[facility] [address] [place], [address] Neutrophils/100 WBC (Bld) 74.9 % High 47-70 [facility] Comment on above: Performed By: #### L 100.0100, L500.2500 ####[facility] [address] [place], [address] Nucleated RBC (Bld) [#/Vol] 0 10*3/uL Normal 0-5 [facility] Comment on above: Performed By: #### L 100.0100, L500.2500 ####[facility] [address] [place], [address] Platelet mean volume (Bld) [Entitic vol] 10.4 fL Normal 6.2-12.0 [facility] Comment on above: Performed By: #### L 100.0100, L500.2500 ####[facility] [address] [place], [address] Platelets (Bld) [#/Vol] 147 10*3/uL Low 150-450 [facility] Comment on above: Performed By: #### L 100.0100, L500.2500 ####[facility] [address] [place], [address] RBC (Bld) [#/Vol] 4.07 10*6/uL Low 4.2-5.4 [facility] Comment on above: Performed By: #### L 100.0100, L500.2500 ####[facility] [address] [place], [address] RDW SD 47.1 fl High 35.1-43.9 [facility] Comment on above: Performed By: #### L 100.0100, L500.2500 ####[facility] [address] [place], [address] WBC (Bld) [#/Vol] 13.7 10*3/uL High 4.4-11.0 [facility] Comment on above: Performed By: #### L 100.0100, L500.2500 ####[facility] [address] [place], [address] Carbon dioxide, total [Moles /volume] in Central venous bloodOrdered By: Velasquez Vivas on 01-12-2025 CO2 [Moles/Vol] 24.5 mmol/L 21.0-32.0 [facility] Chloride assayOrdered By: Sebas Vivas on 01-12-2025 Chloride [Moles/Vol] 105 mmol/L 98-108 [facility] Eosinophil percentageOrdered By: Velasquez Vivas on 01-12-2025 Eosinophils/100 WBC (Bld) 1.5 % 0-5 [facility] Erythrocyte distribution wid th ratioOrdered By: Velasquez Vivas on 01-12-2025 Erythrocyte distribution width (RBC) [Ratio] 15.8 % High 11.6-14.6 [facility] Erythrocyte distribution wid th standard deviationOrdered By: Velasquez Vivas on 01-12-2025 Erythrocyte distribution width (RBC) [Ratio] 47.1 fl High 35.1-43.9 [facility] Glomerular filtration rate ( GFR) estimation/1.73 sq m using serum, plasma, or whole bOrdered By: Velasquez Vivas on 01-12-2025 GFR/1.73 sq M.predicted among non-blacks MDRD (S/P/Bld) [Vol rate/Area] 84 mL/min/{1.73_m2} >60 [facility] Comment on above: mL/min/1.73m2 CKD-EP I Creatinine Equation (2020) Hematocrit Auto (Bld) [Volum e fraction]Ordered By: Velasquez Vivas on 01-12-2025 Hematocrit (Bld) [Volume fraction] 33.4 % Low 37-47 [facility] Hemoglobin measurementOrdere d By: Velasquez Vivas on 01-12-2025 Hemoglobin (Bld) [Mass/Vol] 10.4 g/dL Low 12.0-15.0 [facility] Immature granulocytes/100 WB C Auto (Bld)Ordered By: Velasquez Vivas on 01-12-2025 Immature granulocytes/100 WBC (Bld) 1.500 % High 0.0-0.9 [facility] Comment on above: IG% - Immature Granu locytes (promyelocytes, myelocytes and metamyelocytes) > 1% indicates that a LEFT SHIFT is Present. MCV (mean corpuscular volume ) determinationOrdered By: Velasquez Vivas on 01-12-2025 MCV (RBC) [Entitic vol] 82.1 fL 81-99 [facility] Mean corpuscular hemoglobin (MCH) determinationOrdered By: Velasquez Vivas on 01-12-2025 MCH (RBC) [Entitic mass] 25.6 pg Low 27.0-32.0 [facility] Mean corpuscular hemoglobin concentration (MCHC) determinationOrdered By: Velasquez Vivas on 01-12-2025 MCHC (RBC) [Mass/Vol] 31.1 g/dL Low 32-36 [facility] Mean platelet volume determi nationOrdered By: Velasquez Vivas on 01-12-2025 Platelet mean volume (Bld) [Entitic vol] 10.4 fL 6.2-12.0 [facility] Monocyte percentageOrdered B y: Velasquez Vivas on 01-12-2025 Monocytes/100 WBC (Bld) 7.5 % 0-10 [facility] Neutrophil percentageOrdered By: Velasquez Vivas on 01-12-2025 Neutrophils/100 WBC (Bld) 74.9 % High 47-70 [facility] Nucleated red blood cell per centageOrdered By: Velasquez Vivas on 01-12-2025 Nucleated RBC/100 WBC (Bld) [Ratio] 0 % 0-5 [facility] Platelet countOrdered By: Sebas iVvas on 01-12-2025 Platelets (Bld) [#/Vol] 147 10*3/uL Low 150-450 [facility] Potassium measurement (mass/ volume)Ordered By: Velasquez Vivas on 01-12-2025 Potassium (Unsp spec) [Mass/Vol] 4.5 mmol/L 3.3-5.1 [facility] RBC Auto (Bld) [#/Vol]Ordere d By: Velasquez Vivas on 01-12-2025 RBC (Bld) [#/Vol] 4.07 10*6/uL Low 4.2-5.4 [facility] Serum creatinine measurement (mass/volume)Ordered By: Velasquez Vivas on 01-12-2025 Creatinine [Mass/Vol] 0.81 mg/dL 0.70-1.20 [facility] Serum glucose measurement (m ass/volume)Ordered By: Velasquez Vivas on 01-12-2025 Glucose [Mass/Vol] 134 mg/dL High 70-99 [facility] Serum or plasma calcium janie urement (mass/volume)Ordered By: Velasquez Vivas on 01-12-2025 Calcium [Mass/Vol] 8.9 mg/dL 7.6-11.0 [facility] Serum or plasma urea nitroge n measurement (mass/volume)Ordered By: Velasquez Vivas on 01-12-2025 Urea nitrogen [Mass/Vol] 20 mg/dL High 4-19 [facility] Sodium levelOrdered By: Velasquez Vivas on 01-12-2025 Sodium [Moles/Vol] 138 mmol/L 133-145 [facility] White blood cell (WBC) count Ordered By: Velasquez Vivas on 01-12-2025 WBC (Bld) [#/Vol] 13.7 10*3/uL High 4.4-11.0 [facility] Bedside Glucoseon 01-11-2025 FINGERSTICK GLU 231 mg/dL High 74[address] [place] [address] Comment on above: Result Comment: ESPERANZA GEMENT OF PATIENT CARE PER NURSING PROTOCOL Performed By: #### L 501.080 ####[facility] [address] [place], [address] FINGERSTICK GLU 287 mg/dL High [facility]106 [facility] Comment on above: Result Comment: ESPERANZA GEMENT OF PATIENT CARE PER NURSING PROTOCOL Performed By: #### L 501.080 ####[facility] [address] [place], [address] FINGERSTICK GLU 347 mg/dL High [address] [place] [address] Comment on above: Result Comment: ESPERANZA GEMENT OF PATIENT CARE PER NURSING PROTOCOL Performed By: #### L 501.080 ####[facility] [address] [place], [address] FINGERSTICK GLU 363 mg/dL High [address] [place] [address] Comment on above: Result Comment: ESPERANZA GEMENT OF PATIENT CARE PER NURSING PROTOCOL Performed By: #### L 501.080 ####[facility] [address] [place], [address] FINGERSTICK GLU 323 mg/dL High [address] [place] [address] Comment on above: Result Comment: ESPERANZA GEMENT OF PATIENT CARE PER NURSING PROTOCOL Performed By: #### L 501.080 ####[facility] [address] [place], [address] FINGERSTICK GLU 348 mg/dL High [address] [place] [address] Comment on above: Result Comment: ESPERANZA GEMENT OF PATIENT CARE PER NURSING PROTOCOL Performed By: #### L 501.080 ####[facility] [address] [place], [address] FINGERSTICK GLU 378 mg/dL High 74-106 [facility] Comment on above: Result Comment: ESPERANZA GEMENT OF PATIENT CARE PER NURSING PROTOCOL Performed By: #### L 501.080 ####[facility] [address] [place], [address] FINGERSTICK GLU 329 mg/dL High 74-106 [facility] Comment on above: Result Comment: ESPERANZA GEMENT OF PATIENT CARE PER NURSING PROTOCOL Performed By: #### L 501.080 ####[facility] [address] [place], [address] Bilirubin, totalOrdered By: Amadou Licea on 01-11-2025 Bilirubin [Mass/Vol] 0.38 mg/dL 0.00-1.30 [facility] CBC W/Diff, Automatedon 12-21 Absolute Lymph 2.62 X10 3/uL Normal 0.83-4.51 [facility] Comment on above: Performed By: #### L 100.0100, L503.6030, L501.9520, L501.2300, L503.6550, L500.4050 ####[facility] [facility] [address] [place], [address] Absolute Neut 7.2 X10 3/uL Normal 2.0-7.7 [facility] Comment on above: Performed By: #### L 100.0100, L503.6030, L501.9520, L501.2300, L503.6550, L500.4050 ####[facility] [address] [place], [address] Basophils/100 WBC (Bld) 0.5 % Normal 0-1 [facility] Comment on above: Performed By: #### L 100.0100, L503.6030, L501.9520, L501.2300, L503.6550, L500.4050 ####[facility] [address] [place], [address] Eosinophils/100 WBC (Bld) 1.3 % Normal 0-5 [facility] Comment on above: Performed By: #### L 100.0100, L503.6030, L501.9520, L501.2300, L503.6550, L500.4050 ####[facility] [address] [place], [address] Erythrocyte distribution width (RBC) [Ratio] 15.5 % High 11.6-14.6 [facility] Comment on above: Performed By: #### L 100.0100, L503.6030, L501.9520, L501.2300, L503.6550, L500.4050 ####[facility] [address] [place], [address] Hematocrit (Bld) [Volume fraction] 36.7 % Low 37-47 [facility] Comment on above: Performed By: #### L 100.0100, L503.6030, L501.9520, L501.2300, L503.6550, L500.4050 ####[facility] [address] [place], [address] Hemoglobin (Bld) [Mass/Vol] 11.5 g/dL Low 12.0-15.0 [facility] Comment on above: Performed By: #### L 100.0100, L503.6030, L501.9520, L501.2300, L503.6550, L500.4050 ####[facility] [address] [place], [address] IG% 4.100 High 0.0-0.9 [facility] Comment on above: Result Comment: IG% - Immature Granulocytes (promyelocytes, myelocytes andmetamyelocytes) > 1% indicates that a LEFT SHIFT is Present. Performed By: #### L 100.0100, L503.6030, L501.9520, L501.2300, L503.6550, L500.4050 ####[facility] [address] [place], [address] Lymphocytes/100 WBC (Bld) 23.8 % Normal 19-41 [facility] Comment on above: Performed By: #### L 100.0100, L503.6030, L501.9520, L501.2300, L503.6550, L500.4050 ####[facility] [address] [place], [address] MCH (RBC) [Entitic mass] 25.3 pg Low 27.0-32.0 [facility] Comment on above: Performed By: #### L 100.0100, L503.6030, L501.9520, L501.2300, L503.6550, L500.4050 ####[facility] [address] [place], [address] MCHC (RBC) [Mass/Vol] 31.3 g/dL Low 32-36 [facility] Comment on above: Performed By: #### L 100.0100, L503.6030, L501.9520, L501.2300, L503.6550, L500.4050 ####[facility] [address] [place], [address] MCV (RBC) [Entitic vol] 80.8 fL Low 81-99 [facility] Comment on above: Performed By: #### L 100.0100, L503.6030, L501.9520, L501.2300, L503.6550, L500.4050 ####[facility] [address] [place], [address] Monocytes/100 WBC (Bld) 4.9 % Normal 0-10 [facility] Comment on above: Performed By: #### L 100.0100, L503.6030, L501.9520, L501.2300, L503.6550, L500.4050 ####[facility] [address] [place], [address] Neutrophils/100 WBC (Bld) 65.4 % Normal 47-70 [facility] Comment on above: Performed By: #### L 100.0100, L503.6030, L501.9520, L501.2300, L503.6550, L500.4050 ####[facility] [address] [place], [address] Nucleated RBC (Bld) [#/Vol] 0 10*3/uL Normal 0-5 [facility] Comment on above: Performed By: #### L 100.0100, L503.6030, L501.9520, L501.2300, L503.6550, L500.4050 ####[facility] [address] [place], [address] Platelet mean volume (Bld) [Entitic vol] 9.7 fL Normal 6.2-12.0 [facility] Comment on above: Performed By: #### L 100.0100, L503.6030, L501.9520, L501.2300, L503.6550, L500.4050 ####[facility] [address] [place], [address] Platelets (Bld) [#/Vol] 178 10*3/uL Normal 150-450 [facility] Comment on above: Performed By: #### L 100.0100, L503.6030, L501.9520, L501.2300, L503.6550, L500.4050 ####[facility] [address] [place], [address] RBC (Bld) [#/Vol] 4.54 10*6/uL Normal 4.2-5.4 [facility] Comment on above: Performed By: #### L 100.0100, L503.6030, L501.9520, L501.2300, L503.6550, L500.4050 ####[facility] [address] [place], [address] RDW SD 45.2 fl High 35.1-43.9 [facility] Comment on above: Performed By: #### L 100.0100, L503.6030, L501.9520, L501.2300, L503.6550, L500.4050 ####[facility] [address] [place], [address] WBC (Bld) [#/Vol] 11.0 10*3/uL Normal 4.4-11.0 [facility] Comment on above: Performed By: #### L 100.0100, L503.6030, L501.9520, L501.2300, L503.6550, L500.4050 ####[facility] [address] [place], [address] Comprehensive Metabolic Prof [facility] 01-11-2025 Albumin [Mass/Vol] 3.0 g/dL Low 3.5-5.0 [facility] Comment on above: Performed By: #### L 100.0100, L503.6030, L501.9520, L501.2300, L503.6550, L500.4050 ####[facility] [address] [place], [address] Albumin/Globulin [Mass ratio] 0.9 {ratio} Normal 0.9-2.4 [facility] Comment on above: Performed By: #### L 100.0100, L503.6030, L501.9520, L501.2300, L503.6550, L500.4050 ####[facility] [address] [place], [address] ALK PHOS 247 U/L High 35-104 [facility] Comment on above: Performed By: #### L 100.0100, L503.6030, L501.9520, L501.2300, L503.6550, L500.4050 ####[facility] [address] [place], [address] ALT [Catalytic activity/Vol] 132 U/L High <=34 [facility] Comment on above: Performed By: #### L 100.0100, L503.6030, L501.9520, L501.2300, L503.6550, L500.4050 ####[facility] [address] [place], [address] AST [Catalytic activity/Vol] 83 U/L High <=31 [facility] Comment on above: Performed By: #### L 100.0100, L503.6030, L501.9520, L501.2300, L503.6550, L500.4050 ####[facility] [address] [place], [address] Bilirubin [Mass/Vol] 0.38 mg/dL Normal 0.00-1.30 [facility] Comment on above: Performed By: #### L 100.0100, L503.6030, L501.9520, L501.2300, L503.6550, L500.4050 ####[facility] [address] [place], [address] BUN/CRE 21.1 RATIO High 10-20 [facility] Comment on above: Performed By: #### L 100.0100, L503.6030, L501.9520, L501.2300, L503.6550, L500.4050 ####[facility] [address] [place], [address] Calcium [Mass/Vol] 9.0 mg/dL Normal 7.6-11.0 [facility] Comment on above: Performed By: #### L 100.0100, L503.6030, L501.9520, L501.2300, L503.6550, L500.4050 ####[facility] [address] [place], [address] Chloride [Moles/Vol] 97 mmol/L Low 98-108 [facility] Comment on above: Performed By: #### L 100.0100, L503.6030, L501.9520, L501.2300, L503.6550, L500.4050 ####[facility] [address] [place], [address] CO2 [Moles/Vol] 25.0 mmol/L Normal 21.0-32.0 [facility] Comment on above: Performed By: #### L 100.0100, L503.6030, L501.9520, L501.2300, L503.6550, L500.4050 ####[facility] [address] [place], [address] Creatinine [Mass/Vol] 0.77 mg/dL Normal 0.70-1.20 [facility] Comment on above: Performed By: #### L 100.0100, L503.6030, L501.9520, L501.2300, L503.6550, L500.4050 ####[facility] [address] [place], [address] ECRCL 92.08 ml/min Normal 50-250 [facility] Comment on above: Performed By: #### L 100.0100, L503.6030, L501.9520, L501.2300, L503.6550, L500.4050 ####[facility] [address] [place], [address] GAP 9 Normal 5-15 [facility] Comment on above: Performed By: #### L 100.0100, L503.6030, L501.9520, L501.2300, L503.6550, L500.4050 ####[facility] [address] [place], [address] GFR/1.73 sq M.predicted among non-blacks MDRD (S/P/Bld) [Vol rate/Area] 90 mL/min/{1.73_m2} Normal >60 [facility] Comment on above: Result Comment: mL/m in/1.73m2 CKD-EPI Creatinine Equation (2020) Performed By: #### L 100.0100, L503.6030, L501.9520, L501.2300, L503.6550, L500.4050 ####[facility] [address] [place], [address] Globulin (S) [Mass/Vol] 3.5 g/dL Normal 2.2-4.2 [facility] Comment on above: Performed By: #### L 100.0100, L503.6030, L501.9520, L501.2300, L503.6550, L500.4050 ####[facility] [address] [place], [address] Glucose [Mass/Vol] 395 mg/dL High 70-99 [facility] Comment on above: Performed By: #### L 100.0100, L503.6030, L501.9520, L501.2300, L503.6550, L500.4050 ####[facility] [address] [place], [address] Potassium [Moles/Vol] 4.9 mmol/L Normal 3.3-5.1 [facility] Comment on above: Performed By: #### L 100.0100, L503.6030, L501.9520, L501.2300, L503.6550, L500.4050 ####[facility] [address] [place], [address] Sodium [Moles/Vol] 131 mmol/L Low 133-145 [facility] Comment on above: Performed By: #### L 100.0100, L503.6030, L501.9520, L501.2300, L503.6550, L500.4050 ####[facility] [address] [place], [address] T PROT 6.5 g/dL Normal 5.9-8.4 [facility] Comment on above: Performed By: #### L 100.0100, L503.6030, L501.9520, L501.2300, L503.6550, L500.4050 ####[facility] [address] [place], [address] Urea nitrogen [Mass/Vol] 16 mg/dL Normal 4-19 [facility] Comment on above: Performed By: #### L 100.0100, L503.6030, L501.9520, L501.2300, L503.6550, L500.4050 ####[facility] [address] [place], [address] Ferritinon 01-11-2025 Ferritin [Mass/Vol] 123 ng/mL Normal 22-378 [facility] Comment on above: Performed By: #### L 100.0100, L503.6030, L501.9520, L501.2300, L503.6550, L500.4050 ####[facility] [address] [place], [address] [facility] deOrdered By: Amadou Licea on 01-11-2025 Glucose [Mass/Vol] 329 mg/dL High 74-106 [facility] Comment on above: MANAGEMENT OF PATIEN T CARE PER NURSING PROTOCOL H AND P Exam - [facility] 01-11-2025 H&P Exam - Hospitalist Normal [facility] Hemoglobin A1con 01-11-2025 HbA1c (Bld) [Mass fraction] 12.2 % High <=5.6 [facility] Comment on above: Result Comment: Norm al < 5.7 % Prediabetic 5.7 - 6.4 % Diabetic >or= 6.5 % Please note range changes. Performed By: #### L 501.9985 ####[facility] [address] [place], [address] HbA1c (Bld) [Mass fraction] 12.2 % High <=5.6 [facility] Comment on above: Result Comment: Norm al < 5.7 % Prediabetic 5.7 - 6.4 % Diabetic >or= 6.5 % Please note range changes. Performed By: #### L 501.9985, L503.6030 ####[facility] [address] [place], [address] Hemoglobin A1c percentageOrd ered By: Velasquez Vivas on 01-11-2025 HbA1c (Bld) [Mass fraction] 12.2 % High <5.7 [facility] Comment on above: Normal < 5.7 % Predi abetic 5.7 - 6.4 % Diabetic >or= 6.5 % Please note range changes. Iron measurement (mass/mass) Ordered By: Amadou Licea on 01-11-2025 Iron (Unsp spec) [Mass/Mass] 44 ug/dL Low 50-170 [facility] Iron+Iron Binding Capacityon 01-11-2025 IRON Normal 50-170 [facility] Comment on above: Result Comment: MOVE D TO DIFFERENT REQ- SEE C77 Performed By: #### L 501.9985, L503.6030 ####[facility] [address] [place], [address] IRON SATURATION Normal 13-59 [facility] Comment on above: Result Comment: MOVE D TO DIFFERENT REQ- SEE C77 Performed By: #### L 501.9985, L503.6030 ####[facility] [address] [place], [address] TIBC Normal 250-450 [facility] Comment on above: Result Comment: MOVE D TO DIFFERENT REQ- SEE C77 Performed By: #### L 501.9985, L503.6030 ####[facility] [address] [place], [address] UIBC Normal 228-428 [facility] Comment on above: Result Comment: MOVE D TO DIFFERENT REQ- SEE C77 Performed By: #### L 501.9985, L503.6030 ####[facility] [address], [address] TIBC 238 ug/dL Low 250-450 [facility] Comment on above: Performed By: #### L 100.0100, L503.6030, L501.9520, L501.2300, L503.6550, L500.4050 ####[facility] [address] [place], [address] Laboratory - Chemistry and C hemistry - challengeOrdered By: Amadou Licea on 01-11-2025 AST [Catalytic activity/Vol] 83 U/L High <32 [facility] Lactic Acidon 01-11-2025 Lactate [Moles/Vol] 1.4 mmol/L Normal 0.0-2.0 [facility] Comment on above: Performed By: #### L 503.6005 ####[facility] [address] [place], [address] Lactic acid measurementOrder ed By: Jacobo Solorzano on 01-11-2025 Lactate [Moles/Vol] 1.4 mmol/L 0.0-2.0 [facility] Magnesiumon 01-11-2025 Magnesium [Mass/Vol] 1.8 mg/dL Normal 1.5-2.2 [facility] Comment on above: Performed By: #### L 501.5200 ####[facility] [address] [place], [address] No Panel InformationOrdered By: Amaodu Licea on 01-11-2025 Unsaturated Iron Binding Capacity 194 ug/dL Low 228-428 [facility] Phosphoruson 01-11-2025 Phosphate [Mass/Vol] 4.8 mg/dL High 2.7-4.5 [facility] Comment on above: Performed By: #### L 100.0100, L503.2967, L501.8179, L501.0930, L503.1746, L500.0870 ####[facility] [address] [place], [address] Serum globulin measurementOr dered By: Amadou Licea on 01-11-2025 Globulin (S) [Mass/Vol] 3.5 g/dL 2.2-4.2 [facility] Serum or plasma alanine marrufo otransferase (ALT) measurementOrdered By: Amadou Licea on 01-11-2025 ALT [Catalytic activity/Vol] 132 U/L High <35 [facility] Serum or plasma albumin janie urement (mass/volume)Ordered By: Amadou Licea on 01-11-2025 Albumin [Mass/Vol] 3.0 g/dL Low 3.5-5.0 [facility] Serum or plasma albumin/glob ulin mass ratioOrdered By: Amadou Licea on 01-11-2025 Albumin/Globulin [Mass ratio] 0.9 {ratio} 0.9-2.4 [facility] Serum or plasma alkaline quan sphatase measurementOrdered By: Amadou Licea on 01-11-2025 ALP [Catalytic activity/Vol] 247 U/L High 35-104 [facility] Serum or plasma ferritin hardy surement (mass/volume)Ordered By: Amadou Licea on 01-11-2025 Ferritin [Mass/Vol] 123 ng/mL 22-378 [facility] Serum or plasma iron saturat ion measurement (mass fraction)Ordered By: Amadou Licea on 01-11-2025 Iron saturation [Mass fraction] 18.5 % 13-59 [facility] Comment on above: Previous reported re sult: 18.0 %Edited by: ERIC on 01/11/25:0553 AMENDED REPORT 01/11/25 0553 IRON SATURATION previously reported as: 18.0 % Stool Occult Blood iFOBon STOB Positive Normal [facility] Comment on above: Performed By: #### M 100.7900 ####[facility] [address] [place], [place], [address] Stool gastrointestinal hemog lobin detection by immunologic methodOrdered By: Amadou Licea on 01-11-2025 Lower GI hemoglobin IA Ql (Stl) Positive Abnormal [facility] TSH DL <= 0.005 mIU/L QnOrde red By: Amadou Licea on 01-11-2025 TSH Qn 0.373 uIU/mL 0.300-4.200 [facility] Thyroid Stim Hormone (TSH)on 01-11-2025 TSH 0.373 uIU/mL Normal 0.300-4.200 [facility] Comment on above: Performed By: #### L 100.0100, L503.6030, L501.9520, L501.2300, L503.6550, L500.4050 ####[facility] [address] [place], [place], [address] Total proteinOrdered By: Robert Licea on 01-11-2025 Protein [Mass/Vol] 6.5 g/dL 5.9-8.4 [facility] Abdomen/Pelvis without Conto n 01-10-2025 Abdomen/Pelvis without Cont Normal [facility] Absolute lymphocyte countOrd ered By: Jacobo Solorzano on 01-10-2025 Lymphocytes Auto (Unsp spec) [#/Vol] 3.24 10*3/uL 0.83-4.51 [facility] Absolute neutrophil countOrd ered By: Jacobo Solorzano on 01-10-2025 Neutrophils (Bld) [#/Vol] 10.9 10*3/uL High 2.0-7.7 [facility] Anion gap in Serum or Plasma Ordered By: Jacobo Solorzano on 01-10-2025 Anion gap [Moles/Vol] 11 mmol/L 5-15 [facility] Automated lymphocyte count a s percentage of total leukocytesOrdered By: Jacobo Solorzano on 01-10-2025 Lymphocytes/100 WBC Auto (Unsp spec) 19.6 % 19-41 [facility] BUN/creatinine ratioOrdered By: Jacobo Solorzano on 01-10-2025 Urea nitrogen/Creatinine [Mass ratio] 17.3 mg/mg 05-10 [facility] Basic Metabolic Profile (BMP )on 01-10-2025 BUN/CRE 17.3 RATIO Normal 05-10 [facility] Comment on above: Performed By: #### L 500.2500, L100.0100, L503.6005 ####[facility] [address] [place], [address] Calcium [Mass/Vol] 9.4 mg/dL Normal 7.6-11.0 [facility] Comment on above: Performed By: #### L 500.2500, L100.0100, L503.6005 ####[facility] [address] [place], [address] Chloride [Moles/Vol] 94 mmol/L Low 98-108 [facility] Comment on above: Performed By: #### L 500.2500, L100.0100, L503.6005 ####[facility] [address] [place], [address] CO2 [Moles/Vol] 25.0 mmol/L Normal 21.0-32.0 [facility] Comment on above: Performed By: #### L 500.2500, L100.0100, L503.6005 ####[facility] [address] [place], [address] Creatinine [Mass/Vol] 0.87 mg/dL Normal 0.70-1.20 [facility] Comment on above: Performed By: #### L 500.2500, L100.0100, L503.6005 ####[facility] [address] [place], [address] ECRCL 81.25 ml/min Normal 50-250 [facility] Comment on above: Performed By: #### L 500.2500, L100.0100, L503.6005 ####[facility] [address] [place], [address] GAP 11 Normal 5-15 [facility] Comment on above: Performed By: #### L 500.2500, L100.0100, L503.6005 ####[facility] [address] [place], [address] GFR/1.73 sq M.predicted among non-blacks MDRD (S/P/Bld) [Vol rate/Area] 78 mL/min/{1.73_m2} Normal >60 [facility] Comment on above: Result Comment: mL/m in/1.73m2 CKD-EPI Creatinine Equation (2020) Performed By: #### L 500.2500, L100.0100, L503.6005 ####[facility] [address] [place], [address] Glucose [Mass/Vol] 486 mg/dL Invalid Interpretation Code 70-99 [facility] Comment on above: Result Comment: Crit ical Result(s) Called at: 2338 by:??BROOKLYN GOMEZ Results read back by same. Performed By: #### L 500.2500, L100.0100, L503.6005 ####[facility] [address] [place], [address] Potassium [Moles/Vol] 5.1 mmol/L Normal 3.3-5.1 [facility] Comment on above: Result Comment: Hemo lysis present, Results??could be affected.?? Performed By: #### L 500.2500, L100.0100, L503.6005 ####[facility] [address] [place], [address] Sodium [Moles/Vol] 130 mmol/L Low 133-145 [facility] Comment on above: Performed By: #### L 500.2500, L100.0100, L503.6005 ####[facility] [address] [place], [address] Urea nitrogen [Mass/Vol] 15 mg/dL Normal 4-19 [facility] Comment on above: Performed By: #### L 500.2500, L100.0100, L503.6005 ####[facility] [address] [place], [address] Basophil percentageOrdered B y: Jacobo Solorzano on 01-10-2025 Basophils/100 WBC (Bld) 0.5 % 0-1 [facility] Bilirubin Test strip Ql (U)O rdered By: Jacobologan Solorzano on 01-10-2025 Bilirubin Ql (U) Negative Negative [facility] CBC W/Diff, Automatedon 12-21 Absolute Lymph 3.24 X10 3/uL Normal 0.83-4.51 [facility] Comment on above: Performed By: #### L 500.2500, L100.0100, L503.6005 ####[facility] [address] [place], [address] Absolute Neut 10.9 X10 3/uL High 2.0-7.7 [facility] Comment on above: Performed By: #### L 500.2500, L100.0100, L503.6005 ####[facility] [address] [place], [address] Basophils/100 WBC (Bld) 0.5 % Normal 0-1 [facility] Comment on above: Performed By: #### L 500.2500, L100.0100, L503.6005 ####[facility] [address] [place], [address] Eosinophils/100 WBC (Bld) 1.3 % Normal 0-5 [facility] Comment on above: Performed By: #### L 500.2500, L100.0100, L503.6005 ####[facility] [address] [place], [address] Erythrocyte distribution width (RBC) [Ratio] 15.7 % High 11.6-14.6 [facility] Comment on above: Performed By: #### L 500.2500, L100.0100, L503.6005 ####[facility] [address] [place], [address] Hematocrit (Bld) [Volume fraction] 40.4 % Normal 37-47 [facility] Comment on above: Performed By: #### L 500.2500, L100.0100, L503.6005 ####[facility] [address] [place], [address] Hemoglobin (Bld) [Mass/Vol] 12.9 g/dL Normal 12.0-15.0 [facility] Comment on above: Performed By: #### L 500.2500, L100.0100, L503.6005 ####[facility] [address] [place], [address] IG% 4.600 High 0.0-0.9 [facility] Comment on above: Result Comment: IG% - Immature Granulocytes (promyelocytes, myelocytes andmetamyelocytes) > 1% indicates that a LEFT SHIFT is Present. Performed By: #### L 500.2500, L100.0100, L503.6005 ####[facility] [address] [place], [address] Lymphocytes/100 WBC (Bld) 19.6 % Normal 19-41 [facility] Comment on above: Performed By: #### L 500.2500, L100.0100, L503.6005 ####[facility] [address] [place], [address] MCH (RBC) [Entitic mass] 25.6 pg Low 27.0-32.0 [facility] Comment on above: Performed By: #### L 500.2500, L100.0100, L503.6005 ####[facility] [address] [place], [address] MCHC (RBC) [Mass/Vol] 31.9 g/dL Low 32-36 [facility] Comment on above: Performed By: #### L 500.2500, L100.0100, L503.6005 ####[facility] [id number] [place], [address] MCV (RBC) [Entitic vol] 80.2 fL Low 81-99 [facility] Comment on above: Performed By: #### L 500.2500, L100.0100, L503.6005 ####[facility] [id number] [place], [address] Monocytes/100 WBC (Bld) 8.1 % Normal 0-10 [facility] Comment on above: Performed By: #### L 500.2500, L100.0100, L503.6005 ####[facility] [address] [place], [address] Neutrophils/100 WBC (Bld) 65.9 % Normal 47-70 [facility] Comment on above: Performed By: #### L 500.2500, L100.0100, L503.6005 ####[facility] [address] [place], [address] Nucleated RBC (Bld) [#/Vol] 0 10*3/uL Normal 0-5 [facility] Comment on above: Performed By: #### L 500.2500, L100.0100, L503.6005 ####[facility] [address] [place], [address] Platelet mean volume (Bld) [Entitic vol] 10.1 fL Normal 6.2-12.0 [facility] Comment on above: Performed By: #### L 500.2500, L100.0100, L503.6005 ####[facility] [address] [place], [address] Platelets (Bld) [#/Vol] 236 10*3/uL Normal 150-450 [facility] Comment on above: Performed By: #### L 500.2500, L100.0100, L503.6005 ####[facility] [address] [place], [address] RBC (Bld) [#/Vol] 5.04 10*6/uL Normal 4.2-5.4 [facility] Comment on above: Performed By: #### L 500.2500, L100.0100, L503.6005 ####[facility] [address] [place], [address] RDW SD 45.1 fl High 35.1-43.9 [facility] Comment on above: Performed By: #### L 500.2500, L100.0100, L503.6005 ####[facility] [address] [place], [address] WBC (Bld) [#/Vol] 16.5 10*3/uL High 4.4-11.0 [facility] Comment on above: Performed By: #### L 500.2500, L100.0100, L503.6005 ####[facility] [address] [place], [address] Carbon dioxide, total [Moles /volume] in Central venous bloodOrdered By: Jacobo Solorzano on 01-10-2025 CO2 [Moles/Vol] 25.0 mmol/L 21.0-32.0 [facility] Chloride assayOrdered By: Josh Solorzano on 01-10-2025 Chloride [Moles/Vol] 94 mmol/L Low 98-108 [facility] Emergency Department Summary on 01-10-2025 Emergency Department Summary Normal [facility] Eosinophil percentageOrdered By: Jacobo Solorzano on 01-10-2025 Eosinophils/100 WBC (Bld) 1.3 % 0-5 [facility] Erythrocyte distribution wid th ratioOrdered By: Jacobo Solorzano on 01-10-2025 Erythrocyte distribution width (RBC) [Ratio] 15.7 % High 11.6-14.6 [facility] Erythrocyte distribution wid th standard deviationOrdered By: Jacobologan Chandra on 01-10-2025 Erythrocyte distribution width (RBC) [Ratio] 45.1 fl High 35.1-43.9 [facility] Glomerular filtration rate ( GFR) estimation/1.73 sq m using serum, plasma, or whole bOrdered By: Jacobologan Solorzano on 01-10-2025 GFR/1.73 sq M.predicted among non-blacks MDRD (S/P/Bld) [Vol rate/Area] 78 mL/min/{1.73_m2} >60 [facility] Comment on above: mL/min/1.73m2 CKD-EP I Creatinine Equation (2020) Hematocrit Auto (Bld) [Volum e fraction]Ordered By: Jacobo Solorzano on 01-10-2025 Hematocrit (Bld) [Volume fraction] 40.4 % 37-47 [facility] Hemoglobin measurementOrdere d By: Jacobo Solorzano on 01-10-2025 Hemoglobin (Bld) [Mass/Vol] 12.9 g/dL 12.0-15.0 [facility] Immature granulocytes/100 WB C Auto (Bld)Ordered By: Jacobo Solorzano on 01-10-2025 Immature granulocytes/100 WBC (Bld) 4.600 % High 0.0-0.9 [facility] Comment on above: IG% - Immature Granu locytes (promyelocytes, myelocytes and metamyelocytes) > 1% indicates that a LEFT SHIFT is Present. Ketones Test strip Ql (U)Ord ered By: Jacobo Solorzano on 01-10-2025 Ketones Ql (U) Negative Negative [facility] Lactic Acidon 01-10-2025 Lactate [Moles/Vol] 2.0 mmol/L Normal 0.0-2.0 [facility] Comment on above: Order Comment: Y Result Comment: Crit ical Result(s) Called at: 2338 by:??BROOKLYN HAVEN TOLEANN SPARR Results read back by same. Performed By: #### L 500.2500, L100.0100, L503.6005 ####[facility] [address] [place], [address] Lactic acid measurementOrder ed By: Jacobo Solorzano on 01-10-2025 Lactate [Moles/Vol] 2.0 mmol/L 0.0-2.0 [facility] Comment on above: Critical Result(s) C alled at: 2338 by: BROOKLYN FLEMING SPARR Results read back by same. MCV (mean corpuscular volume ) determinationOrdered By: Jacobo Solorzano on 01-10-2025 MCV (RBC) [Entitic vol] 80.2 fL Low 81-99 [facility] Magnesium measurement (mass/ volume)Ordered By: Amadou Licea on 01-10-2025 Magnesium (Unsp spec) [Mass/Vol] 1.8 mg/dL 1.5-2.2 [facility] Mean corpuscular hemoglobin (MCH) determinationOrdered By: Jacobo Solorzano on 01-10-2025 MCH (RBC) [Entitic mass] 25.6 pg Low 27.0-32.0 [facility] Mean corpuscular hemoglobin concentration (MCHC) determinationOrdered By: Jacobo Solorzano on 01-10-2025 MCHC (RBC) [Mass/Vol] 31.9 g/dL Low 32-36 [facility] Mean platelet volume determi nationOrdered By: Jacobo Solorzano on 01-10-2025 Platelet mean volume (Bld) [Entitic vol] 10.1 fL 6.2-12.0 [facility] Microscopic analysis of urin e for red blood cells (RBC)Ordered By: Jacobo Solorzano on 01-10-2025 Microscopic analysis of urine for red blood cells (RBC) 0-5 SEEN /hpf 0-5 [facility] Monocyte percentageOrdered B y: Jacobo Solorzano on 01-10-2025 Monocytes/100 WBC (Bld) 8.1 % 0-10 [facility] Mucus LM Ql (Urine sed)Order ed By: Jacobo Solorzano on 01-10-2025 Mucus Ql (Urine sed) 0 SEEN /hpf [facility] Neutrophil percentageOrdered By: Jacobo Solorzano on 01-10-2025 Neutrophils/100 WBC (Bld) 65.9 % 47-70 [facility] Nitrite Test strip Ql (U)Ord ered By: Jacobo Solorzano on 01-10-2025 Nitrite Ql (U) Negative Negative [facility] Nucleated red blood cell per centageOrdered By: Jacobo Solorzano on 01-10-2025 Nucleated RBC/100 WBC (Bld) [Ratio] 0 % 0-5 [facility] Platelet countOrdered By: Josh Solorzano on 01-10-2025 Platelets (Bld) [#/Vol] 236 10*3/uL 150-450 [facility] Potassium measurement (mass/ volume)Ordered By: Jacobo Solorzano on 01-10-2025 Potassium (Unsp spec) [Mass/Vol] 5.1 mmol/L 3.3-5.1 [facility] Comment on above: Hemolysis present, R esults could be affected. Protein Test strip Ql (U)Ord ered By: Jacobo Solorzano on 01-10-2025 Protein Ql (U) 30 mg/dl High Negative [facility] RBC Auto (Bld) [#/Vol]Ordere d By: Jacobo Solorzano on 01-10-2025 RBC (Bld) [#/Vol] 5.04 10*6/uL 4.2-5.4 [facility] Serum creatinine measurement (mass/volume)Ordered By: Jacobo Solorzano on 01-10-2025 Creatinine [Mass/Vol] 0.87 mg/dL 0.70-1.20 [facility] Serum glucose measurement (m ass/volume)Ordered By: Jacobo Solorzano on 01-10-2025 Glucose [Mass/Vol] 486 mg/dL High 70-99 [facility] Comment on above: Critical Result(s) C alled at: 2338 by: BROOKLYN GOMEZ Results read back by same. Serum or plasma calcium janie urement (mass/volume)Ordered By: Jacobo Chandra on 01-10-2025 Calcium [Mass/Vol] 9.4 mg/dL 7.6-11.0 [facility] Serum or plasma urea nitroge n measurement (mass/volume)Ordered By: Jacobo Solorzano on 01-10-2025 Urea nitrogen [Mass/Vol] 15 mg/dL 4-19 [facility] Sodium levelOrdered By: Stefan HaleyCorazon on 01-10-2025 Sodium [Moles/Vol] 130 mmol/L Low 133-145 [facility] Squamous epithelial cells de tection in urine sediment by light microscopyOrdered By: Jacobo Solorzano on 01-10-2025 Epithelial cells.squamous LM Ql (Urine sed) 0 SEEN /hpf 5-10 [facility] Urinalysis, Completeon 01-10 BACTERIA 4+ /hpf Normal None Seen [facility] Comment on above: Order Comment: Urine , Random Performed By: #### L 400.0001 ####[facility] [address] [place], [place], [id number] RBC 0-5 SEEN Normal 0-5 [facility] Comment on above: Order Comment: Urine , Random Performed By: #### L 400.0001 ####[facility] [address] [place], [address] WBC 50-100 SEEN Normal 0-5 [facility] Comment on above: Order Comment: Urine , Random Performed By: #### L 400.0001 ####[facility] [address] [place], [address] EPI,SQUAMOUS 0 SEEN Normal 5-10 [facility] Comment on above: Order Comment: Urine , Random Performed By: #### L 400.0001 ####[facility] [address] [place], [place], [address] Mucus Ql (Urine sed) 0 SEEN Normal [facility] Comment on above: Order Comment: Urine , Random Performed By: #### L 400.0001 ####[facility] [address] [place], [address] Urine clarityOrdered By: Dilip Solorzano on 01-10-2025 Clarity (U) Cloudy Clear [facility] Urine color determinationOrd ered By: Jacobo Solorzano on 01-10-2025 Color (U) Yellow Yellow [facility] Urine cultureOrdered By: Dilip Solorzano on 01-10-2025 Bacteria identified Cx Nom (U) Escherichia coli Abnormal [facility] Urine glucose detectionOrder ed By: Jacobo Solorzano on 01-10-2025 Glucose Ql (U) 1000 mg/dl High Normal [facility] Urine leukocyte esterase det ection by dipstickOrdered By: Jacobo Solorzano on 01-10-2025 Leukocyte esterase Test strip Ql (U) 500 /ul High Negative [facility] Urine pHOrdered By: Jacobo Angeles on 01-10-2025 pH (U) 6.0 [pH] 5.0 - 8.0 [facility] Urine sediment bacteria coun t by microscopy (number/high power field)Ordered By: Jacobo Solorzano on 01-10-2025 Bacteria LM.HPF (Urine sed) [#/Area] 4 /[HPF] None Seen [facility] Urine specific gravity measu rementOrdered By: Jacobo Solorzano on 01-10-2025 Specific gravity (U) [Rel density] 1.015 1.002-1.030 [facility] Urine urobilinogen measureme ntOrdered By: Jacobo Solorzano on 01-10-2025 Urobilinogen Ql (U) Normal mg/dl Normal [facility] White blood cell (WBC) count Ordered By: Jacobo Solorzano on 01-10-2025 WBC (Bld) [#/Vol] 16.5 10*3/uL High 4.4-11.0 [facility] White blood cell countOrdere d By: Jacobo Zapatagett on 01-10-2025 White blood cell count 50-100 SEEN /hpf 0-5 [facility] No Panel InformationOrdered By: Neal Ruiz on 12-30-2024 POC SARS CoV-2 Antigen Positive [facility] Urgent Care Visit Reporton 0 12-30-2024 Urgent Care Visit Report Normal [facility] CT ABDOMEN/PELVIS WITH AND W ITHOUT [...] error, please notify the sender immediately at [phone] and permanently delete the original report and destroy any copies or printouts. Normal [facility] CBC AND ELECTRONIC DIFFon Basophils (Bld) [#/Vol] 0.07 10*3/uL 0.00 - 0.15 K/uL [facility] Basophils/100 WBC (Bld) 0.8 % [facility] Differential cell count method Nom (Bld) [facility] Eosin[facility] (Bld) [#/Vol] 0.24 10*3/uL 0.00 - 0.42 K/uL [facility] Eosinophils/100 WBC (Bld) 2.7 % [facility] Erythrocyte distribution width (RBC) [Ratio] 15.4 % High 10.8 - 14.9 % [facility] Hematocrit (Bld) [Volume fraction] 37.7 % 34.9 - 44.3 % [facility] Hemoglobin (Bld) [Mass/Vol] 12.1 g/dL 11.4 - 15.2 g/dL [facility] Immature granulocytes (Bld) [#/Vol] 0.09 10*3/uL High NINF - 0.08 K/uL [facility] Immature granulocytes/100 WBC (Bld) 1 % [facility] Interpretation and review of laboratory results Abnormal [facility] Lymphocytes (Bld) [#/Vol] 2.76 10*3/uL 1.16 - 3.51 K/uL [facility] Lymphocytes/100 WBC (Bld) 31.3 % [facility] MCH (RBC) [Entitic mass] 25.4 pg Low 25.9 - 33.9 pg [facility] MCHC (RBC) [Mass/Vol] 32.1 g/dL 31.4 - 35.9 g/dL [facility] MCV (RBC) [Entitic vol] 79 fL Low 79.6 - 97.7 fL [facility] Monocytes (Bld) [#/Vol] 0.45 10*3/uL 0.22 - 0.87 K/uL [facility] Monocytes/100 WBC (Bld) 5.1 % [facility] Neutrophils (Bld) [#/Vol] 5.22 10*3/uL 1.64 - 7.28 K/uL [facility] Nucleated RBC/100 WBC (Bld) [Ratio] 0 % [facility] Platelet mean volume (Bld) [Entitic vol] 9.8 fL 8.5 - 12.2 fL [facility] Platelets (Bld) [#/Vol] 251 10*3/uL 150 - 393 K/uL [facility] RBC (Bld) [#/Vol] 4.77 10*6/uL [facility] Segmented neutrophils/100 WBC (Bld) 59.1 % [facility] WBC (Bld) [#/Vol] 8.83 10*3/uL 3.99 - 11. 19 K/uL [facility] Basophils (Bld) [#/Vol] 0.07 10*3/uL Normal 0.00-0.15 [facility] Comment on above: Performed By: #### C MPN, LDO #### [facility] (DEFAULT) [address] [place] [address] Basophils/100 WBC (Bld) 0.8 % Normal [facility] Comment on above: Performed By: #### C MPN, LDO #### [facility] (DEFAULT) [address] [place] [address] DIFF STATUS Electronic Differential Normal [facility] Comment on above: Performed By: #### C MPN, LDO #### [facility] (DEFAULT) [address] [place] [address] Eosinophils (Bld) [#/Vol] 0.24 10*3/uL Normal 0.00-0.42 [facility] Comment on above: Performed By: #### C MPN, LDO #### [facility] (DEFAULT) [address] [place] [address] Eosinophils/100 WBC (Bld) 2.7 % Normal [facility] Comment on above: Performed By: #### C MPN, LDO #### [facility] (DEFAULT) [address] [place] [address] Hematocrit (Bld) [Volume fraction] 37.7 % Normal 34.9-44.3 [facility] Comment on above: Performed By: #### C MPN, LDO #### [facility] (DEFAULT) [address] [place] [address] Hemoglobin (Bld) [Mass/Vol] 12.1 g/dL Normal 11.4-15.2 [facility] Comment on above: Performed By: #### C MPN, LDO #### [facility] (DEFAULT) [address] [place] [address] Immature Grans % 1.0 % Normal [facility] Comment on above: Performed By: #### C MPN, LDO #### [facility] (DEFAULT) [address] [place] [address] Immature Grans Absolute 0.09 K/uL High <=0.08 [facility] Comment on above: Performed By: #### C MPN, LDO #### [facility] (DEFAULT) [address] [place] [address] Lymphocytes (Bld) [#/Vol] 2.76 10*3/uL Normal 1.16-3.51 [facility] Comment on above: Performed By: #### C MPN, LDO #### [facility] (DEFAULT) [address] [place] [address] Lymphocytes/100 WBC (Bld) 31.3 % Normal [facility] Comment on above: Performed By: #### C MPN, LDO #### [facility] (DEFAULT) [address] [place] [address] MCV (RBC) [Entitic vol] 79.0 fL Low 79.6-97.7 [facility] Comment on above: Performed By: #### C MPN, LDO #### [facility] (DEFAULT) [address] [place] [address] 23272 Mean Cell Hgb 25.4 pg Low 25.9-33.9 [facility] Comment on above: Performed By: #### C MPN, LDO #### [facility] (DEFAULT) [address] [place] [address] Mean Cell Hgb Conc 32.1 g/dL Normal 31.4-35.9 [facility] Comment on above: Performed By: #### C MPN, LDO #### [facility] (DEFAULT) [address] [place] [address] Monocytes (Bld) [#/Vol] 0.45 10*3/uL Normal 0.22-0.87 [facility] Comment on above: Performed By: #### C MPN, LDO #### [facility] (DEFAULT) [address] [place] [address] Monocytes/100 WBC (Bld) 5.1 % Normal [facility] Comment on above: Performed By: #### C MPN, LDO #### [facility] (DEFAULT) [address] [place] [address] Nucleated RBC 0.0 /100 WBC Normal <=0.2 [facility] Comment on above: Performed By: #### C MPN, LDO #### [facility] (DEFAULT) [address] [place] [address] Platelet mean volume (Bld) [Entitic vol] 9.8 fL Normal 8.5-12.2 [facility] Comment on above: Performed By: #### C MPN, LDO #### [facility] (DEFAULT) [address] [place] [address] Platelets (Bld) [#/Vol] 251 10*3/uL Normal 150-393 [facility] Comment on above: Performed By: #### C MPN, LDO #### [facility] (DEFAULT) [address] [place] [address] RBC (Bld) [#/Vol] 4.77 10*6/uL Normal 3.91-5.04 [facility] Comment on above: Performed By: #### C MPN, LDO #### [facility] (DEFAULT) [address] [place] [address] RBC Distribution 15.4 % High 10.8-14.9 [facility] Comment on above: Performed By: #### C MPN, LDO #### [facility] (DEFAULT) [address] [place] [address] Segs + Bands Auto 59.1 % Normal [facility] Comment on above: Performed By: #### C MPN, LDO #### [facility] (DEFAULT) [address] [place] [address] Segs + Bands,Absolute Auto 5.22 K/uL Normal 1.64-7.28 [facility] Comment on above: Performed By: #### C MPN, LDO #### [facility] (DEFAULT) [address] [place] [address] WBC (Bld) [#/Vol] 8.83 10*3/uL Normal 3.99-11.19 [facility] Comment on above: Performed By: #### C MPN, JOANO #### [facility] (DEFAULT) [address] [place] [address] Basophils (Bld) [#/Vol] 0.07 10*3/uL Normal 0.00-0.15 [facility] Comment on above: Performed By: #### L [id number] #### [facility] (DEFAULT) [address] [address] Basophils/100 WBC (Bld) 0.9 % Normal [facility] Comment on above: Performed By: #### L [id number] #### [facility] (DEFAULT) [address] [address] DIFF STATUS Electronic Differential Normal [facility] Comment on above: Performed By: #### L [id number] #### [facility] (DEFAULT) [address] [address] Eosinophils (Bld) [#/Vol] 0.23 10*3/uL Normal 0.00-0.42 [facility] Comment on above: Performed By: #### L [id number] #### [facility] (DEFAULT) [address] [address] Eosinophils/100 WBC (Bld) 2.9 % Normal [facility] Comment on above: Performed By: #### L [id number] #### [facility] (DEFAULT) [address] [address] Hematocrit (Bld) [Volume fraction] 39.2 % Normal 34.9-44.3 [facility] Comment on above: Performed By: #### L [id number] #### [facility] (DEFAULT) [address] [address] Hemoglobin (Bld) [Mass/Vol] 12.2 g/dL Normal 11.4-15.2 [facility] Comment on above: Performed By: #### L [id number] #### [facility] (DEFAULT) [address] [place] [address] Immature Grans % 1.1 % Normal [facility] Comment on above: Performed By: #### L [id number] #### [facility] (DEFAULT) [address] [place] [address] Immature Grans Absolute 0.09 K/uL High <=0.08 [facility] Comment on above: Performed By: #### L [id number] #### [facility] (DEFAULT) [address] [place] [address] Lymphocytes (Bld) [#/Vol] 2.62 10*3/uL Normal 1.16-3.51 [facility] Comment on above: Performed By: #### L [id number] #### [facility] (DEFAULT) [address] [place] [address] Lymphocytes/100 WBC (Bld) 32.5 % Normal [facility] Comment on above: Performed By: #### L [id number] #### [facility] (DEFAULT) [address] [place] [address] MCV (RBC) [Entitic vol] 79.5 fL Low 79.6-97.7 [facility] Comment on above: Performed By: #### L [id number] #### [facility] (DEFAULT) [address] [place] [address]226 Mean Cell Hgb 24.7 pg Low 25.9-33.9 [facility] Comment on above: Performed By: #### L [id number] #### [facility] (DEFAULT) [address] [place] [address] 17050 Mean Cell Hgb Conc 31.1 g/dL Low 31.4-35.9 [facility] Comment on above: Performed By: #### L [id number] #### [facility] (DEFAULT) [address] [place] [address] Monocytes (Bld) [#/Vol] 0.41 10*3/uL Normal 0.22-0.87 [facility] Comment on above: Performed By: #### L [id number] #### [facility] (DEFAULT) [address] [place] [address] Monocytes/100 WBC (Bld) 5.1 % Normal [facility] Comment on above: Performed By: #### L [id number] #### [facility] (DEFAULT) [address] [place] [address]65[address] Nucleated RBC 0.0 /100 WBC Normal <=0.2 [facility] Comment on above: Performed By: #### L [id number] #### [facility] (DEFAULT) [address] [address] Platelet mean volume (Bld) [Entitic vol] 10.6 fL Normal 8.5-12.2 [facility] Comment on above: Performed By: #### L [id number] #### [facility] (DEFAULT) [address] [address] Platelets (Bld) [#/Vol] 266 10*3/uL Normal 150-393 [facility] Comment on above: Performed By: #### L [id number] #### [facility] (DEFAULT) [address] [place] [address] RBC (Bld) [#/Vol] 4.93 10*6/uL Normal 3.91-5.04 [facility] Comment on above: Performed By: #### L [id number] #### [facility] (DEFAULT) [address] [place] [address] 31254 RBC Distribution 15.6 % High 10.8-14.9 [facility] Comment on above: Performed By: #### L [id number] #### [facility] (DEFAULT) [address] [place] [address] Segs + Bands Auto 57.5 % Normal [facility] Comment on above: Performed By: #### L [id number] #### [facility] (DEFAULT) [address] [place] [address] Segs + Bands,Absolute Auto 4.63 K/uL Normal 1.64-7.28 [facility] Comment on above: Performed By: #### L [id number] #### [facility] (DEFAULT) [address] [place] [address] WBC (Bld) [#/Vol] 8.05 10*3/uL Normal 3.99-11.19 [facility] Comment on above: Performed By: #### L [id number] #### [facility] (DEFAULT) [address] [place] [address]45 CHROMOGRANIN Aon 12-24-2024 Chromogranin A 756 ng/mL High <93 [facility] Comment on above: Result Comment: Impa ired renal or hepatic function or treatment with proton pump inhibitors may result in artifactual elevations of Chromogranin A. ADDITIONAL INFORMATION The testing method is a homogeneous time-resolved immunofluorescent assay manufactured by [employer] and performed on the [employer] Krypt[employer] Compact Plus. Values obtained with different assay methods or kits may be different and cannot be used interchangeably. Test results cannot be interpreted as absolute evidence for the presence or absence of malignant disease. In some immunoassays, the presence of unusually high concentrations of analyte may result in a high-dose "hook" effect. This may result in a lower or even normal measured analyte concentration. If the reported result is inconsistent with the clinical presentation, the laboratory should be alerted for troubleshooting. For diagnostic purposes, these immunoassay results should always be assessed in conjunction with the patients medical history, clinical examination and other findings. Test Performed by: [facility] [address] [place] [address] Catshovel Driver: Juana Recio Ph.D.; CLIA# [id number] Performed By: #### C MPN LDO #### [facility] (DEFAULT) [address] [place] [address] Chromogranin A 678 ng/mL High <93 [facility] Comment on above: Result Comment: Impa ired renal or hepatic function or treatment with proton pump inhibitors may result in artifactual elevations of Chromogranin A. ADDITIONAL INFORMATION The testing method is a homogeneous time-resolved immunofluorescent assay manufactured by [employer] and performed on the [employer] Kryptor Compact Plus. Values obtained with different assay methods or kits may be different and cannot be used interchangeably. Test results cannot be interpreted as absolute evidence for the presence or absence of malignant disease. In some immunoassays, the presence of unusually high concentrations of analyte may result in a high-dose "hook" effect. This may result in a lower or even normal measured analyte concentration. If the reported result is inconsistent with the clinical presentation, the laboratory should be alerted for troubleshooting. For diagnostic purposes, these immunoassay results should always be assessed in conjunction with the patients medical history, clinical examination and other findings. Test Performed by: [place] [address] Catshovel Driver: Juana Recio Ph.D.; CLIA# [id number] Performed By: #### C [facility], LDO #### [facility] (DEFAULT) [address] [place] [address] METABOLIC PANE [facility] 12-24-2024 Albumin [Mass/Vol] 3.8 g/dL 3.5 - 5.0 g/dL [facility] ALP [Catalytic activity/Vol] 143 U/L High 32 - 126 U/L [facility] ALT [Catalytic activity/Vol] 49 U/L High 9 - 48 U/L [facility] Anion gap [Moles/Vol] 10 mmol/L 7 - 17 mmol/L [facility] AST [Catalytic activity/Vol] 57 U/L High 10 - 39 U/L [facility] Bilirubin [Mass/Vol] 0.5 mg/dL NINF - 1.5 mg/dL [facility] Calcium [Mass/Vol] 9.6 mg/dL 8.6 - 10. 5 mg/dL [facility] Chloride [Moles/Vol] 95 mmol/L Low 98 - 10 8 mmol/L [facility] CO2 [Moles/Vol] 31 mmol/L 21 - 31 mmol/L [facility] Creatinine [Mass/Vol] 0.69 mg/dL 0.50 - 1.20 mg/dL [facility] eGFR, CKD-EPI, Female - PINF [facility] Comment on above: Reported eGFR is bas ed on the CKD-EPI 2020 equation using creatinine, age, and sex. Glucose [Mass/Vol] 312 mg/dL High 70 - 179 mg/dL [facility] Interpretation and review of laboratory results Abnormal [facility] Osmolality Calc [Osmolality] 291 [facility] Potassium [Moles/Vol] 4.7 mmol/L 3.5 - 5.0 mmol/L [facility] Protein [Mass/Vol] 9.1 g/dL High 6.4 - 8.3 g/dL [facility] Sodium [Moles/Vol] 131 mmol/L Low 135 - 145 mmol/L [facility] Urea nitrogen [Mass/Vol] 14 mg/dL 7 - 25 mg/dL [facility] Urea nitrogen/Creatinine [Mass ratio] 20 mg/mg [facility] Albumin [Mass/Vol] 3.8 g/dL Normal 3.5-5.0 [facility] Comment on above: Performed By: #### C MPN, LDO #### [facility] (DEFAULT) [address] [place] [address] ALP [Catalytic activity/Vol] 143 U/L High 32-126 [facility] Comment on above: Performed By: #### C MPN, LDO #### [facility] (DEFAULT) [address] [place] [address] 16092 ALT [Catalytic activity/Vol] 49 U/L High 9-48 [facility] Comment on above: Performed By: #### C MPN, LDO #### [facility] (DEFAULT) [address] [place] [address] Anion gap [Moles/Vol] 10 mmol/L Normal 7-17 [facility] Comment on above: Performed By: #### C MPN, LDO #### [facility] (DEFAULT) [address] [place] [address] AST [Catalytic activity/Vol] 57 U/L High 10-39 [facility] Comment on above: Performed By: #### C MPN, LDO #### [facility] (DEFAULT) [address] [place] [address]12 Bilirubin [Mass/Vol] 0.5 mg/dL Normal <1.5 [facility] Comment on above: Performed By: #### C MPN, LDO #### [facility] (DEFAULT) [address] [place] [address] Calcium [Mass/Vol] 9.6 mg/dL Normal 8.6-10.5 [facility] Comment on above: Performed By: #### C MPN, LDO #### [facility] (DEFAULT) [address] [place] [address] 12546 Chloride [Moles/Vol] 95 mmol/L Low 98-108 [facility] Comment on above: Performed By: #### C MPN, LDO #### [facility] (DEFAULT) [address] [place] [address]99 CO2 [Moles/Vol] 31 mmol/L Normal 21-31 [facility] Comment on above: Performed By: #### C MPN, LDO #### [facility] (DEFAULT) [address] [place] [address]657 Creatinine [Mass/Vol] 0.69 mg/dL Normal 0.50-1.20 [facility] Comment on above: Performed By: #### C MPN, LDO #### [facility] (DEFAULT) [address] [place] [address]14 eGFR, CKD-EPI, Female > Normal >=60 [facility] Comment on above: Result Comment: Repo rted eGFR is based on the CKD-EPI 2020 equation using creatinine, age, and sex. Performed By: #### C MPN, LDO #### [facility] (DEFAULT) [address] [place] [address]05 Glucose [Mass/Vol] 312 mg/dL High Nonfastin -179 mg/dL; Fastin-99 [facility] Comment on above: Performed By: #### C MPN, LDO #### [facility] (DEFAULT) [address] [place] [address] 71387 Osmolality [Osmolality] 291 mosm/kg Normal 278-305 [facility] Comment on above: Performed By: #### C MPN, LDO #### [facility] (DEFAULT) [address] [place] [address] Potassium [Moles/Vol] 4.7 mmol/L Normal 3.5-5.0 [facility] Comment on above: Performed By: #### C MPN, LDO #### [facility] (DEFAULT) [address] [place] [address]33 Protein [Mass/Vol] 9.1 g/dL High 6.4-8.3 [facility] Comment on above: Performed By: #### C MPN, LDO #### [facility] (DEFAULT) [address] [place] [address] 49077 Sodium [Moles/Vol] 131 mmol/L Low 135-145 [facility] Comment on above: Performed By: #### C MPN, LDO #### [facility] (DEFAULT) [address] [place] [address] 15478 Urea nitrogen [Mass/Vol] 14 mg/dL Normal 7-25 [facility] Comment on above: Performed By: #### C MPN, LDO #### [facility] (DEFAULT) [address] [place] [address] 16764 Urea nitrogen/Creatinine [Mass ratio] 20 mg/mg Normal [facility] Comment on above: Performed By: #### C MPN, LDO #### [facility] (DEFAULT) [address] [place] [address] Albumin [Mass/Vol] 3.8 g/dL Normal 3.5-5.0 [facility] Comment on above: Performed By: #### Y MMA #### [facility] (DEFAULT) [address] [place] [address] ALP [Catalytic activity/Vol] 153 U/L High 32-126 [facility] Comment on above: Performed By: #### Y MMA #### [facility] (DEFAULT) [address] [place] [address] 92653 ALT [Catalytic activity/Vol] 48 U/L Normal 9-48 [facility] Comment on above: Performed By: #### Y MMA #### [facility] (DEFAULT) [address] [place] [address] 95652 Anion gap [Moles/Vol] 9 mmol/L Normal 7-17 [facility] Comment on above: Performed By: #### Y MMA #### [facility] (DEFAULT) [address] [place] [address] 67977 AST [Catalytic activity/Vol] 56 U/L High 10-39 [facility] Comment on above: Performed By: #### Y MMA #### [facility] (DEFAULT) [address] [place] [address] 42690 Bilirubin [Mass/Vol] 0.5 mg/dL Normal <1.5 [facility] Comment on above: Performed By: #### Y MMA #### [facility] (DEFAULT) [address] [place] [address] 61925 Calcium [Mass/Vol] 9.5 mg/dL Normal 8.6-10.5 [facility] Comment on above: Performed By: #### Y MMA #### [facility] (DEFAULT) [address] [place] [address] 00668 Chloride [Moles/Vol] 93 mmol/L Low 98-108 [facility] Comment on above: Performed By: #### Y MMA #### [facility] (DEFAULT) [address] [place] [address] 75087 CO2 [Moles/Vol] 34 mmol/L High 21-31 [facility] Comment on above: Performed By: #### Y MMA #### [facility] (DEFAULT) [address] [place] [address] 26078 Creatinine [Mass/Vol] 0.69 mg/dL Normal 0.50-1.20 [facility] Comment on above: Performed By: #### Y MMA #### [facility] (DEFAULT) [address] [place] [address] 46748 eGFR, CKD-EPI, Female > Normal >=60 [facility] Comment on above: Result Comment: Repo rted eGFR is based on the CKD-EPI 2020 equation using creatinine, age, and sex. Performed By: #### Y MMA #### [facility] (DEFAULT) [address] [place] [address] 36099 Glucose [Mass/Vol] 288 mg/dL High Nonfastin -179 mg/dL; Fastin-99 [facility] Comment on above: Performed By: #### Y MMA #### [facility] (DEFAULT) [address] [place] [address] 12988 Osmolality [Osmolality] 291 mosm/kg Normal 278-305 [facility] Comment on above: Performed By: #### Y MMA #### [facility] (DEFAULT) [address] [place] [address] 64252 Potassium [Moles/Vol] 4.4 mmol/L Normal 3.5-5.0 [facility] Comment on above: Performed By: #### Y MMA #### [facility] (DEFAULT) [address] [place] [address] 06223 Protein [Mass/Vol] 9.2 g/dL High 6.4-8.3 [facility] Comment on above: Performed By: #### Y MMA #### [facility] (DEFAULT) [address] [place] [address] 81257 Sodium [Moles/Vol] 132 mmol/L Low 135-145 [facility] Comment on above: Performed By: #### Y MMA #### [facility] (DEFAULT) [address] [place] [address] 19290 Urea nitrogen [Mass/Vol] 14 mg/dL Normal 7-25 [facility] Comment on above: Performed By: #### Y MMA #### [facility] (DEFAULT) [address] [place] [address] 03280 Urea nitrogen/Creatinine [Mass ratio] 20 mg/mg Normal [facility] Comment on above: Performed By: #### Y MMA #### [facility] (DEFAULT) [address] [place] [address] 21169 CREAT/GFRon 12-24-2024 Creatinine [Mass/Vol] 0.69 mg/dL 0.50 - 1.20 mg/dL [facility] GFR/1.73 sq M.predicted CKD-EPI (S/P/Bld) [Vol rate/Area] [facility] Comment [facility] above: Reported eGFR is bas ed on the CKD-EPI 2020 equation using creatinine, age, and sex. Interpretation and review of laboratory results Normal [facility] Test performed at ad dress of the patient encounter. [facility] GASTRIN - NON-STIMULATEDon 0 12-24-2024 Gastrin 1296 pg/mL High [facility] Comment on above: Result Comment: REFERENCE VALUE <100 Reference ranges valid for >= 8 hour fast. Test Performed by: [facility] anchor.travel - [facility] [address] [place] [address] Catshovel Driver: Juana Recio Ph.D.; CLIA# [id number] Performed By: #### C MPN, LDO #### [facility] (DEFAULT) [address] [address] LACTATE DEHYDROGENASEon 06-0 Interpretation and review of laboratory results Normal [facility] LDH Lactate to pyruvate reaction [Catalytic activity/Vol] 162 U/L 100 - 190 U/L [facility] LD Total 162 U/L Normal 100-190 [facility] Comment on above: Performed By: #### C MPN, LDO #### [facility] (DEFAULT) [address] [place] [address] 99551 LD Total 170 U/L Normal 100-190 [facility] Comment on above: Performed By: #### Y MMA #### [facility] (DEFAULT) [address] [address] METHYLMALONIC ACIDon 025 METHYLMALONIC ACID 0.34 nmol/mL Normal <=0.40 [facility] Comment on above: Result Comment: ADDITIONAL INFORMATION This test was developed and its performance characteristics determined by [facility] in a manner consistent with CLIA requirements. This test has not been cleared or approved by the U.S. Food and Drug Administration. Test Performed by: [place] [address] Catshovel Driver: Juana Recio Ph.D.; CLIA# [id number] Performed By: #### Y MMA #### [facility] (DEFAULT) [address] [address] No Panel Informationon 12-24 [facility] PANCREATIC POLYPEPTIDEon Pancreatic Polypeptide 739 pg/mL High <291 [facility] Comment on above: Result Comment: ADDITIONAL INFORMATION This test was developed and its performance characteristics determined by [facility] in a manner consistent with CLIA requirements. This test has not been cleared or approved by the U.S. Food and Drug Administration. Test Performed by: [facility] - [facility] [address] [place] [address] Catshovel Driver: Juana Recio Ph.D.; CLIA# [id number] Performed By: #### C MPN, LDO #### [facility] ([facility]) [address] [place] [address] LABORATORYOrdered By: Anali Levy on 12-02-2024 Albumin DL <= 20 mg/L (U) [Mass/Vol] 229.1 mg/L Invalid Interpretation Code AO ADM SS Albumin/Creatinine DL <= 20 mg/L (U) [Mass ratio] 308 mg/G High 0 - 30 mg/G AO Chemistry S Creatinine (U) [Mass/Vol] 74.4 mg/dL Normal 29.0 - 226.0 mg/dL AO ADM SS MALBRon 12-02-2024 U Creatinine 74.4 mg/dL Normal 29.0-226.0 [facility] Comment on above: Performed By: #### M ALBR #### [address] [address] U Microalb 229.1 mg/L Normal [facility] Comment on above: Performed By: #### M ALBR #### [address] [address] U Ratio Alb/Cre 308 mg/G High 0-30 [facility] Comment on above: Performed By: #### M ALBR #### [address] [address] No Panel Informationon 12-02 Culture Urine 50,000 - 100,000 cfu /ml Mixed growth consistent with normal urogenital keiko. [facility] Work Phone: .Auto Diffon 11-06-2024 Basophil, Absolute 0.0 10 3/mcL Normal 0.0-0.3 [facility] Comment on above: Performed By: #### A DANIAL, CMP, ADIFF, CBC, PBNP, GFR #### [address] [address] Basophils/100 WBC (Bld) 0.5 % Normal 0.0-2.5 [facility] Comment on above: Performed By: #### A DANIAL, CMP, ADIFF, CBC, PBNP, GFR #### [address] [address] Eosinophil, Absolute 0.2 10 3/mcL Normal 0.0-0.7 [facility] Comment on above: Performed By: #### A DANIAL, CMP, ADIFF, CBC, PBNP, GFR #### [address] [address] Eosinophils/100 WBC (Bld) 2.3 % Normal 0.0-6.0 [facility] Comment on above: Performed By: #### A DANIAL, CMP, ADIFF, CBC, PBNP, GFR #### [address] [address] Lymphocyte, Absolute 2.2 10 3/mcL Normal 0.9-4.3 [facility] Comment on above: Performed By: #### A DANIAL, CMP, ADIFF, CBC, PBNP, GFR #### [address] [address] Lymphocytes/100 WBC (Bld) 29.0 % Normal 20.0-40.0 [facility] Comment on above: Performed By: #### A DANIAL, CMP, ADIFF, CBC, PBNP, GFR #### [address] [address] Monocyte, Absolute 0.4 10 3/mcL Normal 0.1-1.4 [facility] Comment on above: Performed By: #### A DANIAL, CMP, ADIFF, CBC, PBNP, GFR #### [address] [address] Monocytes/100 WBC (Bld) 5.0 % Normal 2.0-13.0 [facility] Comment on above: Performed By: #### A DANIAL, CMP, ADIFF, CBC, PBNP, GFR #### [address] [address] Neutrophils/100 WBC (Bld) 63.2 % Normal 50.0-75.0 [facility] Comment on above: Performed By: #### A DANIAL, CMP, ADIFF, CBC, PBNP, GFR #### [address] [address] .GFRon 11-06-2024 Estimated Glomerular Filtration Rate 74 ml/min/1.73sqm Normal [facility] Comment on above: Result Comment: Stages [...] calculate the eGFR results. Performed By: #### A DANIAL, CMP, ADIFF, CBC, PBNP, GFR #### [address] [address] .NEUABSon 11-06-2024 Neutrophil, Absolute 4.9 10 3/mcL Normal 2.3-8.1 [facility] Comment on above: Performed By: #### A DANIAL, CMP, ADIFF, CBC, PBNP, GFR #### [address] [address] CBCon 11-06-2024 Erythrocyte distribution width (RBC) [Ratio] 16.2 % High 11.5-15.5 [facility] Comment on above: Performed By: #### A DANIAL, CMP, ADIFF, CBC, PBNP, GFR #### [address] [address] Hematocrit (Bld) [Volume fraction] 35.3 % Normal 34.0-46.0 [facility] Comment on above: Performed By: #### A DANIAL, CMP, ADIFF, CBC, PBNP, GFR #### [address] [address] Hgb 11.4 G/dL Low 12.0-16.0 [facility] Comment on above: Performed By: #### A DANIAL, CMP, ADIFF, CBC, PBNP, GFR #### [address] [address] MCH (RBC) [Entitic mass] 25.3 pg Low 27.0-33.0 [facility] Comment on above: Performed By: #### A DANIAL, CMP, ADIFF, CBC, PBNP, GFR #### [place] [address] MCHC 32.5 G/dL Normal 32.0-36.0 [facility] Comment on above: Performed By: #### A DANIAL, CMP, ADIFF, CBC, PBNP, GFR #### [place] [address] MCV (RBC) [Entitic vol] 78.0 fL Low 80.0-99.0 [facility] Comment on above: Performed By: #### A DANIAL, CMP, ADIFF, CBC, PBNP, GFR #### [address] [address] Platelet 189 10 3/mcL Normal 150-450 [facility] Comment on above: Performed By: #### A DANIAL, CMP, ADIFF, CBC, PBNP, GFR #### [place] [address] Platelet mean volume (Bld) [Entitic vol] 8.3 fL Normal 6.6-10.5 [facility] Comment on above: Performed By: #### A DANIAL, CMP, ADIFF, CBC, PBNP, GFR #### [place] [address] RBC 4.52 10 6/mcL Normal 4.10-5.30 [facility] Comment on above: Performed By: #### A DANIAL, CMP, ADIFF, CBC, PBNP, GFR #### [address] [address] WBC 7.7 10 3/mcL Normal 4.5-10.8 [facility] Comment on above: Performed By: #### A DAINAL, CMP, ADIFF, CBC, PBNP, GFR #### [address] [address] CMPon 11-06-2024 Albumin Level 2.9 G/dL Low 3.5-5.0 [facility] Comment on above: Performed By: #### A DANIAL, CMP, ADIFF, CBC, PBNP, GFR #### [place] [address] Albumin/Globulin [Mass ratio] 0.5 {ratio} Low 1.1-2.5 [facility] Comment on above: Performed By: #### A DANIAL, CMP, ADIFF, CBC, PBNP, GFR #### [place] [address] ALP [Catalytic activity/Vol] 194 U/L High 40-135 [facility] Comment on above: Performed By: #### A DANIAL, CMP, ADIFF, CBC, PBNP, GFR #### [place] [address] ALT [Catalytic activity/Vol] 89 U/L High 14-59 [facility] Comment on above: Performed By: #### A DANIAL, CMP, ADIFF, CBC, PBNP, GFR #### [place] [address] AST [Catalytic activity/Vol] 100 U/L High 10-40 [facility] Comment on above: Performed By: #### A DANIAL, CMP, ADIFF, CBC, PBNP, GFR #### [place] [address] Bili Total 0.3 mg/dL Normal 0.2-1.0 [facility] Comment on above: Result Comment: Use of this assay is not recommended for patients undergoing treatment with eltrombopag due to the potential for falsely elevated results. Performed By: #### A DANIAL, CMP, ADIFF, CBC, PBNP, GFR #### [address] [address] BUN/Creatinine Ratio 24 ratio Normal 7-27 [facility] Comment on above: Performed By: #### A DANIAL, CMP, ADIFF, CBC, PBNP, GFR #### [address] [address] Calcium [Mass/Vol] 8.7 mg/dL Normal 8.4-10.2 [facility] Comment on above: Performed By: #### A DANIAL, CMP, ADIFF, CBC, PBNP, GFR #### [address] [address] Chloride [Moles/Vol] 97 mmol/L Low 98-107 [facility] Comment on above: Performed By: #### A DANIAL, CMP, ADIFF, CBC, PBNP, GFR #### [address] [address] CO2 [Moles/Vol] 32 mmol/L High 22-29 [facility] Comment on above: Performed By: #### A DANIAL, CMP, ADIFF, CBC, PBNP, GFR #### [address] [address] Creatinine [Mass/Vol] 0.91 mg/dL Normal 0.55-1.02 [facility] Comment on above: Result Comment: Test ing performed on Siemens Dimension EXL analyzer using a modified kinetic Avila technique. Performed By: #### A DANIAL, CMP, ADIFF, CBC, PBNP, GFR #### [address] [address] Electrolyte Balance 1.0 mEq/L Low 4.0-15.0 [facility] Comment on above: Performed By: #### A DANIAL, CMP, ADIFF, CBC, PBNP, GFR #### [address] [address] Globulin 5.6 G/dL High 1.5-3.8 [facility] Comment on above: Performed By: #### A DANIAL, CMP, ADIFF, CBC, PBNP, GFR #### [address] [address] Glucose [Mass/Vol] 394 mg/dL High 70-105 [facility] Comment on above: Performed By: #### A DANIAL, CMP, ADIFF, CBC, PBNP, GFR #### [address] [address] Potassium [Moles/Vol] 4.9 mmol/L Normal 3.5-5.1 [facility] Comment on above: Performed By: #### A DANIAL, CMP, ADIFF, CBC, PBNP, GFR #### [address] [address] Sodium [Moles/Vol] 130 mmol/L Low 136-145 [facility] Comment on above: Performed By: #### A DANIAL, CMP, ADIFF, CBC, PBNP, GFR #### [address] [address] Total Protein 8.5 G/dL High 6.4-8.2 [facility] Comment on above: Performed By: #### A DANIAL, CMP, ADIFF, CBC, PBNP, GFR #### [address] [address] Urea nitrogen [Mass/Vol] 22 mg/dL High 7-18 [facility] Comment on above: Performed By: #### A DANIAL, CMP, ADIFF, CBC, PBNP, GFR #### [address] [address] LABORATORYOrdered By: SYSTEM SYSTEM on 11-06-2024 Albumin [...] above: Interpretive Data: T esting performed on [employer] Dimension EXL analyzer using a modified kinetic [...] B (Bld) [Mass/Vol] 77 pg/mL Normal 0-125 [facility] Comment on above: Result Comment: NT-p roBNP results of less than 300 pg/mL effectively rules out acute congestive heart failure with 99% negative predictive value. Performed By: #### A DANIAL, CMP, ADIFF, CBC, PBNP, GFR #### [facility] [address] [place], [place] [address] Urine Cultureon 11-06-2024 URC Organism is too fast idious for routine susceptibility studies. Urine Culture Aerococcus urinae [place] Count 50,000-80,000 Normal [facility] Comment on above: Performed By: #### M 100.2200 ####[facility] [id number] [place], [place], [id number] Absolute lymphocyte countOrd ered By: Velasquez Hill on 11-03-2024 Lymphocytes Auto (Unsp spec) [#/Vol] 2.97 10*3/uL 0.83-4.51 [facility] Absolute neutrophil countOrd ered By: Velasquez Hill on 11-03-2024 Neutrophils (Bld) [#/Vol] 5.6 10*3/uL 2.0-7.7 [facility] Anion gap in Serum or Plasma Ordered By: Velasquez Hill on 11-03-2024 Anion gap [Moles/Vol] 8 mmol/L - [facility] [facility] Automated lymphocyte count a s percentage of total leukocytesOrdered By: Velasquez Hill on 11-03-2024 Lymphocytes/100 WBC Auto (Unsp spec) 31.4 % 19-41 [facility] BUN/creatinine ratioOrdered By: Velasquez Hill on 11-03-2024 Urea nitrogen/Creatinine [Mass ratio] 23.0 mg/mg High 10-20 [facility] Basic Metabolic Profile (BMP )on 11-03-2024 BUN/CRE 23.0 RATIO High - [facility] Comment on above: Performed By: #### L 501.6901, L500.2500, L100.0100 ####[facility] [address] [place], [address] Calcium [Mass/Vol] 9.3 mg/dL Normal 7.6-11.0 [facility] Comment on above: Performed By: #### L 501.6901, L500.2500, L100.0100 ####[facility] [address] [place], [address] Chloride [Moles/Vol] 98 mmol/L Normal 98-108 [facility] Comment on above: Performed By: #### L 501.6901, L500.2500, L100.0100 ####[facility] [address] [place], [address] CO2 [Moles/Vol] 25.3 mmol/L Normal 21.0-32.0 [facility] Comment on above: Performed By: #### L 501.6901, L500.2500, L100.0100 ####[facility] [address] [place], [address] Creatinine [Mass/Vol] 1.02 mg/dL Normal 0.70-1.20 [facility] Comment on above: Performed By: #### L 501.6901, L500.2500, L100.0100 ####[facility] [address] [place], [address] ECRCL 70.28 ml/min Normal 50-250 [facility] Comment on above: Performed By: #### L 501.6901, L500.2500, L100.0100 ####[facility] [address] [place], [address] GAP 8 Normal 5-15 [facility] Comment on above: Performed By: #### L 501.6901, L500.2500, L100.0100 ####[facility] [address] [place], [address] GFR/1.73 sq M.predicted among non-blacks MDRD (S/P/Bld) [Vol rate/Area] 64 mL/min/{1.73_m2} Normal >60 [facility] Comment on above: Result Comment: mL/m in/1.73m2 CKD-EPI Creatinine Equation (2020) Performed By: #### L 501.6901, L500.2500, L100.0100 ####[facility] [address] [place], [address] Glucose [Mass/Vol] 391 mg/dL High 70-99 [facility] Comment on above: Performed By: #### L 501.6901, L500.2500, L100.0100 ####[facility] [address] [place], [address] Potassium [Moles/Vol] 4.9 mmol/L Normal 3.3-5.1 [facility] Comment on above: Performed By: #### L 501.6901, L500.2500, L100.0100 ####[facility] [address] [place], [address] Sodium [Moles/Vol] 132 mmol/L Low 133-145 [facility] Comment on above: Performed By: #### L 501.6901, L500.2500, L100.0100 ####[facility] [address] [place], [address] Urea nitrogen [Mass/Vol] 24 mg/dL High 4-19 [facility] Comment on above: Performed By: #### L 501.6901, L500.2500, L100.0100 ####[facility] [address] [place], [address] Basophil percentageOrdered B y: Velasquez Hill on 11-03-2024 Basophils/100 WBC (Bld) 0.7 % 0-1 [facility] Beta hydroxybutyrate [Mass/V ol]Ordered By: Velasquez Hill on 11-03-2024 Beta-Hydroxybutyric Acid mmol/L 0.1 mmol/L 0.0-0.3 [facility] Beta-Hydroxbytyrateon 2024 BETA-HYDROXYBUT 0.1 mmol/L Normal 0.0-0.3 [facility] Comment on above: Performed By: #### L 501.6901, L500.2500, L100.0100 ####[facility] [address], [address] Beta-hydroxybutyrateOrdered By: Velasquez Hill on 11-03-2024 Beta hydroxybutyrate [Mass/Vol] 0.1 mmol/L 0.0-0.3 [facility] Bilirubin Test strip Ql (U)O rdered By: Velasquez Hill on 11-03-2024 Bilirubin Ql (U) Negative Negative [facility] CBC W/Diff, Automatedon 10-20 Absolute Lymph 2.97 X10 3/uL Normal 0.83-4.51 [facility] Comment on above: Performed By: #### L 501.6901, L500.2500, L100.0100 ####[facility] [address] [place], [address] Absolute Neut 5.6 X10 3/uL Normal 2.0-7.7 [facility] Comment on above: Performed By: #### L 501.6901, L500.2500, L100.0100 ####[facility] [address] [place], [address] Basophils/100 WBC (Bld) 0.7 % Normal 0-1 [facility] Comment on above: Performed By: #### L 501.6901, L500.2500, L100.0100 ####[facility] [address] [place], [address] Eosinophils/100 WBC (Bld) 1.9 % Normal 0-5 [facility] Comment on above: Performed By: #### L 501.6901, L500.2500, L100.0100 ####[facility] [address] [place], [address] Erythrocyte distribution width (RBC) [Ratio] 15.3 % High 11.6-14.6 [facility] Comment on above: Performed By: #### L 501.6901, L500.2500, L100.0100 ####[facility] [address] [place], [address] Hematocrit (Bld) [Volume fraction] 36.1 % Low 37-47 [facility] Comment on above: Performed By: #### L 501.6901, L500.2500, L100.0100 ####[facility] [address] [place], [address] Hemoglobin (Bld) [Mass/Vol] 11.7 g/dL Low 12.0-15.0 [facility] Comment on above: Performed By: #### L 501.6901, L500.2500, L100.0100 ####[facility] [address] [place], [address] IG% 1.800 High 0.0-0.9 [facility] Comment on above: Result Comment: IG% - Immature Granulocytes (promyelocytes, myelocytes andmetamyelocytes) > 1% indicates that a LEFT SHIFT is Present. Performed By: #### L 501.6901, L500.2500, L100.0100 ####[facility] [address] [place], [address] Lymphocytes/100 WBC (Bld) 31.4 % Normal 19-41 [facility] Comment on above: Performed By: #### L 501.6901, L500.2500, L100.0100 ####[facility] [address] [place], [address] MCH (RBC) [Entitic mass] 25.3 pg Low 27.0-32.0 [facility] Comment on above: Performed By: #### L 501.6901, L500.2500, L100.0100 ####[facility] [address] [place], [address] MCHC (RBC) [Mass/Vol] 32.4 g/dL Normal 32-36 [facility] Comment on above: Performed By: #### L 501.6901, L500.2500, L100.0100 ####[facility] [address] [place], [address] MCV (RBC) [Entitic vol] 78.1 fL Low 81-99 [facility] Comment on above: Performed By: #### L 501.6901, L500.2500, L100.0100 ####[facility] [address] [place], [address] Monocytes/100 WBC (Bld) 5.3 % Normal 0-10 [facility] Comment on above: Performed By: #### L 501.6901, L500.2500, L100.0100 ####[facility] [address] [place], [address] Neutrophils/100 WBC (Bld) 58.9 % Normal 47-70 [facility] Comment on above: Performed By: #### L 501.6901, L500.2500, L100.0100 ####[facility] [address] [place], [address] Nucleated RBC (Bld) [#/Vol] 0 10*3/uL Normal 0-5 [facility] Comment on above: Performed By: #### L 501.6901, L500.2500, L100.0100 ####[facility] [address] [place], [address] Platelet mean volume (Bld) [Entitic vol] 9.9 fL Normal 6.2-12.0 [facility] Comment on above: Performed By: #### L 501.6901, L500.2500, L100.0100 ####[facility] [address] [place], [address] Platelets (Bld) [#/Vol] 203 10*3/uL Normal 150-450 [facility] Comment on above: Performed By: #### L 501.6901, L500.2500, L100.0100 ####[facility] [address] [place], [address] RBC (Bld) [#/Vol] 4.62 10*6/uL Normal 4.2-5.4 [facility] Comment on above: Performed By: #### L 501.6901, L500.2500, L100.0100 ####[facility] [address] [place], [address] RDW SD 43.0 fl Normal 35.1-43.9 [facility] Comment on above: Performed By: #### L 501.6901, L500.2500, L100.0100 ####[facility] [address] [place], [address] WBC (Bld) [#/Vol] 9.5 10*3/uL Normal 4.4-11.0 [facility] Comment on above: Performed By: #### L 501.6901, L500.2500, L100.0100 ####[facility] [address] [place], [address] Carbon dioxide, total [Moles /volume] in Central venous bloodOrdered By: Velasquez Hill on 11-03-2024 CO2 [Moles/Vol] 25.3 mmol/L 21.0-32.0 [facility] Chloride assayOrdered By: Sebas Hill on 11-03-2024 Chloride [Moles/Vol] 98 mmol/L 98-108 [facility] Emergency Department Summary on 11-03-2024 Emergency Department Summary Normal [facility] Eosinophil percentageOrdered By: Velasquez Hill on 11-03-2024 Eosinophils/100 WBC (Bld) 1.9 % 0-5 [facility] Epithelial cells.squamous LM Ql (Urine sed)Ordered By: Velasquez Hill on 11-03-2024 Epithelial cells.squamous LM.HPF (Urine sed) [#/Area] 0 /[HPF] 5-10 [facility] Erythrocyte distribution wid th (RBC) [Ratio]Ordered By: Velasquez Hill on 11-03-2024 Erythrocyte distribution width (RBC) [Entitic vol] 43.0 fL 35.1-43.9 [facility] Erythrocyte distribution wid th ratioOrdered By: Velasquez Hill on 11-03-2024 Erythrocyte distribution width (RBC) [Ratio] 15.3 % High 11.6-14.6 [facility] Erythrocyte distribution wid th standard deviationOrdered By: Velasquez Hill on 11-03-2024 Erythrocyte distribution width (RBC) [Ratio] 43.0 fl 35.1-43.9 [facility] Estimation of creatinine carol aranceOrdered By: Velasquez Hill on 11-03-2024 Estimated Creatinine Clearance Calc 70.28 ml/min 50-250 [facility] GFR/1.73 sq M.predicted jace g non-blacks MDRD (S/P/Bld) [Vol rate/Area]Ordered By: Velasquez Hill on 11-03-2024 Estimated GFR (MDRD) Non-Af Amer 64 >60 [facility] Comment on above: mL/min/1.73m2 CKD-EP I Creatinine Equation (2020) Glomerular filtration rate ( GFR) estimation/1.73 sq m using serum, plasma, or whole bOrdered By: Velasquez Hill on 11-03-2024 GFR/1.73 sq M.predicted among non-blacks MDRD (S/P/Bld) [Vol rate/Area] 64 mL/min/{1.73_m2} >60 [facility] Comment on above: mL/min/1.73m2 CKD-EP I Creatinine Equation (2020) Glucose Ql (U)Ordered By: Sebas Hill on 11-03-2024 Glucose (U) [Mass/Vol] 1000 mg/dL High Normal [facility] Hematocrit Auto (Bld) [Volum e fraction]Ordered By: Velasquez Hill on 11-03-2024 Hematocrit (Bld) [Volume fraction] 36.1 % Low 37-47 [facility] Hemoglobin measurementOrdere d By: Velasqeuz Hill on 11-03-2024 Hemoglobin (Bld) [Mass/Vol] 11.7 g/dL Low 12.0-15.0 [facility] Immature granulocytes/100 WB C Auto (Bld)Ordered By: Velasquez Hill on 11-03-2024 Immature granulocytes/100 WBC (Bld) 1.800 % High 0.0-0.9 [facility] Comment on above: IG% - Immature Granu locytes (promyelocytes, myelocytes and metamyelocytes) > 1% indicates that a LEFT SHIFT is Present. Ketones Test strip Ql (U)Ord ered By: Velasquez Hill on 11-03-2024 Ketones Ql (U) Negative Negative [facility] Lymphocytes Auto (Unsp spec) [#/Vol]Ordered By: Velasquez Hill on 11-03-2024 Lymphocytes (Bld) [#/Vol] 2.97 10*3/uL 0.83-4.51 [facility] Lymphocytes/100 WBC Auto (Un sp spec)Ordered By: Velasquez Hill on 11-03-2024 Lymphocytes/100 WBC (Bld) 31.4 % 19-41 [facility] MCV (mean corpuscular volume ) determinationOrdered By: Velasquez Hill on 11-03-2024 MCV (RBC) [Entitic vol] 78.1 fL Low 81-99 [facility] Mean corpuscular hemoglobin (MCH) determinationOrdered By: Velasquez Hill on 11-03-2024 MCH (RBC) [Entitic mass] 25.3 pg Low 27.0-32.0 [facility] Mean corpuscular hemoglobin concentration (MCHC) determinationOrdered By: Velasquez Hill on 11-03-2024 MCHC (RBC) [Mass/Vol] 32.4 g/dL 32-36 [facility] Mean platelet volume determi nationOrdered By: Velasquez Hill on 11-03-2024 Platelet mean volume (Bld) [Entitic vol] 9.9 fL 6.2-12.0 [facility] Microscopic analysis of urin e for red blood cells (RBC)Ordered By: Velasquez Hill on 11-03-2024 Microscopic analysis of urine for red blood cells (RBC) 25-50 SEEN /hpf 0-5 [facility] Urine RBC 25-50 SEEN /hpf 0-5 [facility] Monocyte percentageOrdered B y: Velasquez Hill on 11-03-2024 Monocytes/100 WBC (Bld) 5.3 % 0-10 [facility] Mucus LM Ql (Urine sed)Order ed By: Velasquez Hill on 11-03-2024 Mucus Ql (Urine sed) 0 SEEN /hpf [facility] Neutrophil percentageOrdered By: Velasquez Hill on 11-03-2024 Neutrophils/100 WBC (Bld) 58.9 % 47-70 [facility] Nitrite Test strip Ql (U)Ord ered By: Velasquez Hill on 11-03-2024 Nitrite Ql (U) Negative Negative [facility] Nucleated red blood cell per centageOrdered By: Velasquez Hill on 11-03-2024 Nucleated RBC/100 WBC (Bld) [Ratio] 0 % 0-5 [facility] Platelet countOrdered By: Sebas Hill on 11-03-2024 Platelets (Bld) [#/Vol] 203 10*3/uL 150-450 [facility] Potassium (Unsp spec) [Mass/ Vol]Ordered By: Velasquez Hill on 11-03-2024 Potassium [Moles/Vol] 4.9 mmol/L 3.3-5.1 [facility] Potassium measurement (mass/ volume)Ordered By: Velasquez Hill on 11-03-2024 Potassium (Unsp spec) [Mass/Vol] 4.9 mmol/L 3.3-5.1 [facility] Protein Test strip Ql (U)Ord ered By: Velasquez Hill on 11-03-2024 Protein Ql (U) 30 mg/dl High Negative [facility] RBC Auto (Bld) [#/Vol]Ordere d By: Velasquez Hill on 11-03-2024 RBC (Bld) [#/Vol] 4.62 10*6/uL 4.2-5.4 [facility] Serum creatinine measurement (mass/volume)Ordered By: Velasquez Hill on 11-03-2024 Creatinine [Mass/Vol] 1.02 mg/dL 0.70-1.20 [facility] Serum glucose measurement (m ass/volume)Ordered By: Velasquez Hill on 11-03-2024 Glucose [Mass/Vol] 391 mg/dL High 70-99 [facility] Serum or plasma calcium janie urement (mass/volume)Ordered By: Velasquez Hill on 11-03-2024 Calcium [Mass/Vol] 9.3 mg/dL 7.6-11.0 [facility] Serum or plasma urea nitroge n measurement (mass/volume)Ordered By: Velasquez Hill on 11-03-2024 Urea nitrogen [Mass/Vol] 24 mg/dL High 4-19 [facility] Sodium levelOrdered By: Velasquez Hlil on 11-03-2024 Sodium [Moles/Vol] 132 mmol/L Low 133-145 [facility] Squamous epithelial cells de tection in urine sediment by light microscopyOrdered By: Velasquez Hill on 11-03-2024 Epithelial cells.squamous LM Ql (Urine sed) 0-5 SEEN /hpf - [facility] Urinalysis, Completeon 11-03 BACTERIA 1+ /hpf Normal None Seen [facility] Comment on above: Order Comment: CLEAN CATCH Performed By: #### L 400.0001 ####[facility] [address] [place], [place], [id number] EPI,SQUAMOUS 0-5 SEEN Normal - [facility] Comment on above: Order Comment: CLEAN CATCH Performed By: #### L 400.0001 ####[facility] [address] [place], [address] RBC 25-50 SEEN Normal 0-5 [facility] Comment on above: Order Comment: CLEAN CATCH Performed By: #### L 400.0001 ####[facility] [address] [place], [place], [id number] WBC 25-50 SEEN Normal 0-5 [facility] Comment on above: Order Comment: CLEAN CATCH Performed By: #### L 400.0001 ####[facility] [address] [place], [place], [id number] Mucus Ql (Urine sed) 0 SEEN Normal [facility] Comment on above: Order Comment: CLEAN CATCH Performed By: #### L 400.0001 ####[facility] [address] [place], [place], [id number] Urine blood detectionOrdered By: Velasquez Hill on 11-03-2024 Urine Occult Blood 150 /ul High Negative [facility] Urine clarityOrdered By: Loan Hill on 11-03-2024 Clarity (U) Clear Clear [facility] Urine color determinationOrd ered By: Velasquez Hill on 11-03-2024 Color (U) Yellow Yellow [facility] Urine cultureOrdered By: Loan Hill on 11-03-2024 Bacteria identified Cx Nom (U) Aerococcus urinae Abnormal [facility] Urine glucose detectionOrder ed By: Velasquez Hill on 11-03-2024 Glucose Ql (U) 1000 mg/dl High Normal [facility] Urine leukocyte esterase det ection by dipstickOrdered By: Velasquez Hill on 11-03-2024 Leukocyte esterase Test strip Ql (U) 25 /ul High Negative [facility] Urine pHOrdered By: Velasquez calderon on 11-03-2024 pH (U) 6.0 [pH] 5.0 - 8.0 [facility] Urine sediment bacteria coun t by microscopy (number/high power field)Ordered By: Velasquez Hill on 11-03-2024 Bacteria LM.HPF (Urine sed) [#/Area] 1 /[HPF] None Seen [facility] Urine specific gravity measu rementOrdered By: Velasquez Hill on 11-03-2024 Specific gravity (U) [Rel density] 1.015 1.002-1.030 [facility] Urine urobilinogen measureme ntOrdered By: Velasquez Hill on 11-03-2024 Urobilinogen Ql (U) Normal mg/dl Normal [facility] Urobilinogen Ql (U)Ordered B y: Velasquez Hill on 11-03-2024 Urine Urobilinogen Normal mg/dl Normal [facility] White blood cell (WBC) count Ordered By: Velasquez Hill on 11-03-2024 WBC (Bld) [#/Vol] 9.5 10*3/uL 4.4-11.0 [facility] White blood cell countOrdere d By: Velasquez Hill on 11-03-2024 Urine WBC 25-50 SEEN /hpf 0-5 [facility] White blood cell count 25-50 SEEN /hpf 0-5 [facility] Pulmonary Visit Reporton Pulmonary Visit Report Normal [facility] 6 Minute Walk Teston 025 6 Minute Walk Test Normal [facility] 10-04-2024 U Ratio Alb/Cre 454 mg/G High 0-30 [facility] Comment on above: Performed By: #### C TPCR, NGPCR1 #### [facility] [address] [place] [address] Emergency Department Summary on 09-30-2024 Emergency Department Summary Normal [facility] Foot min 3 Viewson 5 Foot min 3 Views Normal [facility] Absolute lymphocyte countOrd ered By: Scott Berrios on 09-24-2024 Lymphocytes Auto (Unsp spec) [#/Vol] 2.28 10*3/uL 0.83-4.51 [facility] Absolute neutrophil countOrd ered By: Scott Berrios on 09-24-2024 Neutrophils (Bld) [#/Vol] 7.9 10*3/uL High 2.0-7.7 [facility] Automated lymphocyte count a s percentage of total leukocytesOrdered By: Scott Berrios on 09-24-2024 Lymphocytes/100 WBC Auto (Unsp spec) 20.7 % 19-41 [facility] Basophil percentageOrdered B y: Scott Berrios on 09-24-2024 Basophils/100 WBC (Bld) 0.6 % 0-1 [facility] CBC W/Diff, Automatedon Absolute Lymph 2.28 X10 3/uL Normal 0.83-4.51 [facility] Comment on above: Performed By: #### L 100.0100 ####[facility] [address] [place], [address] Absolute Neut 7.9 X10 3/uL High 2.0-7.7 [facility] Comment on above: Performed By: #### L 100.0100 ####[facility] [address] [place], [address] Basophils/100 WBC (Bld) 0.6 % Normal 0-1 [facility] Comment on above: Performed By: #### L 100.0100 ####[facility] [address] [place], [address] Eosinophils/100 WBC (Bld) 2.0 % Normal 0-5 [facility] Comment on above: Performed By: #### L 100.0100 ####[facility] [address] [place], [address] Erythrocyte distribution width (RBC) [Ratio] 15.5 % High 11.6-14.6 [facility] Comment on above: Performed By: #### L 100.0100 ####[facility] [address] [place], [address] Hematocrit (Bld) [Volume fraction] 36.8 % Low 37-47 [facility] Comment on above: Performed By: #### L 100.0100 ####[facility] [address] [place], [address] Hemoglobin (Bld) [Mass/Vol] 11.7 g/dL Low 12.0-15.0 [facility] Comment on above: Performed By: #### L 100.0100 ####[facility] [address] [place], [address] IG% 1.100 High 0.0-0.9 [facility] Comment on above: Result Comment: IG% - Immature Granulocytes (promyelocytes, myelocytes andmetamyelocytes) > 1% indicates that a LEFT SHIFT is Present. Performed By: #### L 100.0100 ####[facility] [address] [place], [address] Lymphocytes/100 WBC (Bld) 20.7 % Normal 19-41 [facility] Comment on above: Performed By: #### L 100.0100 ####[facility] [address] [place], [address] MCH (RBC) [Entitic mass] 25.0 pg Low 27.0-32.0 [facility] Comment on above: Performed By: #### L 100.0100 ####[facility] [address] [place], [address] MCHC (RBC) [Mass/Vol] 31.8 g/dL Low 32-36 [facility] Comment on above: Performed By: #### L 100.0100 ####[facility] [address] [place], [address] MCV (RBC) [Entitic vol] 78.6 fL Low 81-99 [facility] Comment on above: Performed By: #### L 100.0100 ####[facility] [address] [place], [address] Monocytes/100 WBC (Bld) 4.4 % Normal 0-10 [facility] Comment on above: Performed By: #### L 100.0100 ####[facility] [address] [place], [address] Neutrophils/100 WBC (Bld) 71.2 % High 47-70 [facility] Comment on above: Performed By: #### L 100.0100 ####[facility] [address] [place], [address] Nucleated RBC (Bld) [#/Vol] 0 10*3/uL Normal 0-5 [facility] Comment on above: Performed By: #### L 100.0100 ####[facility] [address] [place], [address] Platelet mean volume (Bld) [Entitic vol] 10.4 fL Normal 6.2-12.0 [facility] Comment on above: Performed By: #### L 100.0100 ####[facility] [address] [place], [address] Platelets (Bld) [#/Vol] 261 10*3/uL Normal 150-450 [facility] Comment on above: Performed By: #### L 100.0100 ####[facility] [address] [place], [address] RBC (Bld) [#/Vol] 4.68 10*6/uL Normal 4.2-5.4 [facility] Comment on above: Performed By: #### L 100.0100 ####[facility] [address] [place], [address] RDW SD 42.7 fl Normal 35.1-43.9 [facility] Comment on above: Performed By: #### L 100.0100 ####[facility] [address] [place], [address] WBC (Bld) [#/Vol] 11.0 10*3/uL Normal 4.4-11.0 [facility] Comment on above: Performed By: #### L 100.0100 ####[facility] [address] [place], [address] Endocrinology Visit Reporton 09-24-2024 Endocrinology Visit Report Normal [facility] Eosinophil percentageOrdered By: Scott Berrios on 09-24-2024 Eosinophils/100 WBC (Bld) 2.0 % 0-5 [facility] Erythrocyte distribution wid th ratioOrdered By: Scott Berrios on 09-24-2024 Erythrocyte distribution width (RBC) [Ratio] 15.5 % High 11.6-14.6 [facility] Erythrocyte distribution wid th standard deviationOrdered By: Scott Berrios on 09-24-2024 Erythrocyte distribution width (RBC) [Entitic vol] 42.7 fL 35.1-43.9 [facility] Erythrocyte distribution width (RBC) [Ratio] 42.7 fl 35.1-43.9 [facility] Hematocrit Auto (Bld) [Volum e fraction]Ordered By: Scott Berrios on 09-24-2024 Hematocrit (Bld) [Volume fraction] 36.8 % Low 37-47 [facility] Hemoglobin measurementOrdere d By: Scott Berrios on 09-24-2024 Hemoglobin (Bld) [Mass/Vol] 11.7 g/dL Low 12.0-15.0 [facility] Immature granulocytes/100 WB C Auto (Bld)Ordered By: Scott Berrios on 09-24-2024 Immature granulocytes/100 WBC (Bld) 1.100 % High 0.0-0.9 [facility] Comment on above: IG% - Immature Granu locytes (promyelocytes, myelocytes and metamyelocytes) > 1% indicates that a LEFT SHIFT is Present. Laboratory - Hematology and Cell countsOrdered By: Jaziel Drake on 09-24-2024 HbA1c (Bld) [Mass fraction] 11.4 % High 4.2-6.3 [facility] Lymphocytes Auto (Unsp spec) [#/Vol]Ordered By: Scott Berrios on 09-24-2024 Lymphocytes (Bld) [#/Vol] 2.28 10*3/uL 0.83-4.51 [facility] Lymphocytes/100 WBC Auto (Un sp spec)Ordered By: Scott Berrios on 09-24-2024 Lymphocytes/100 WBC (Bld) 20.7 % 19-41 [facility] MCV (mean corpuscular volume ) determinationOrdered By: Scott Berrios on 09-24-2024 MCV (RBC) [Entitic vol] 78.6 fL Low 81-99 [facility] Mean corpuscular hemoglobin (MCH) determinationOrdered By: Scott Berrios on 09-24-2024 MCH (RBC) [Entitic mass] 25.0 pg Low 27.0-32.0 [facility] Mean corpuscular hemoglobin concentration (MCHC) determinationOrdered By: Scott Berrios on 09-24-2024 MCHC (RBC) [Mass/Vol] 31.8 g/dL Low 32-36 [facility] Mean platelet volume determi nationOrdered By: Scott Berrios on 09-24-2024 Platelet mean volume (Bld) [Entitic vol] 10.4 fL 6.2-12.0 [facility] Monocyte percentageOrdered B y: Scott Berrios on 09-24-2024 Monocytes/100 WBC (Bld) 4.4 % 0-10 [facility] Neutrophil percentageOrdered By: Scott Berrios on 09-24-2024 Neutrophils/100 WBC (Bld) 71.2 % High 47-70 [facility] Nucleated red blood cell per centageOrdered By: Scott Berrios on 09-24-2024 Nucleated RBC/100 WBC (Bld) [Ratio] 0 % 0-5 [facility] Platelet countOrdered By: Sandrita Berrios on 09-24-2024 Platelets (Bld) [#/Vol] 261 10*3/uL 150-450 [facility] RBC Auto (Bld) [#/Vol]Ordere d By: Scott Berrios on 09-24-2024 RBC (Bld) [#/Vol] 4.68 10*6/uL 4.2-5.4 [facility] White blood cell (WBC) count Ordered By: Scott Berrios on 09-24-2024 WBC (Bld) [#/Vol] 11.0 10*3/uL 4.4-11.0 [facility] MA MAMMOGRAM SCREENING BILAT ERAL W/TOMOon 09-22-2024 MA MAMMOGRAM SCREENING BILATERAL W/JORGE ALBERTO ORIGINAL FROM: [employer] [address] [place], [place] [id number] PROCEDURE FOR: LEROY MONTEJO [address] [place] [id number] Home: PID#: [id number] Exam#: [id number] : 1965 Age: 58 TO: VERO ORTEZ APRN [place], [place] [address] EXAMINATION: SCREENING DIGITAL BILATERAL MAMMOGRAM WITH TOMOSYNTHESIS, [...] Continued screening with annual mammograms is recommended. [facility], generated with the history [...] annual mammographic screening per the [employer] [place] [employer]. BIRADS: BI-RADS: 2: Benign RECALL: 1 year screening RECALL TYPE: mammo LETTER SENT: Normal BI-RADS 1 and 2 Interpreted by: Amadou Saldana MD Preliminary Report By: Amadou Saldana MD Electronically signed By Amadou Saldana MD Dictated Date: 09/22/2024 5:03:08 PM Prelim Date: 09/22/2024 5:05:43 PM Sign Date: 09/22/2024 5:05:43 PM Ordering Provider: VERO ORTEZ Ent Nurse: MARISSA MORRISON RT (R)(M) letter sent: Normal BI-RADS 1 and 2 Mammogram BI-RADS: 2 Benign Normal [facility] Cutter Hand Cytology Reporton 2024 [facility] Cytology Report . Pathology Reports Accession: Collected Date/Time: Received Date/Time: Pathologist: [id number] 09/02/2024 13:46 EST 09/02/2024 18:00 EST [facility]ology Report SPECIMEN: Specimen Description: Liquid Prep [...] and evaluated with the assistance of the [employer] ThinPrep Test Imaging System. Pathology Reports Accession: Collected Date/Time: Received Date/Time: Pathologist: [id number] 09/02/2024 13:46 EST 09/02/2024 18:00 EST Verified by Pathology report verified by [facility] Screened by: XENIA Electronically signed by Rosy MARS (ASCP) Sign-Out Date: 09/09/2024 15:21 Performing Lab: [facility], [address] [place] [address] Pathology Dept Disclaimer The Pap test is a screening test for cervical cancer. As evidenced by published data, it is subject to both inherent false negative and false positive results. Your patient's results should be interpreted in context with pertinent clinical history including gynecological examination. Normal [facility] HPVon 09-04-2024 HPV Interp Normal See Interp HPVN [facility] Comment on above: Order Comment: Order placed by AP_HPV_ORDER rule from [id number] Result Comment: High Risk HPV Typing: NEGATIVE [...] See Interp HPVN Performed By: #### C TPCR, NGPCR1 #### [place] [address] HPV Source Cervix Normal [facility] Comment on above: Order Comment: Order placed by AP_HPV_ORDER rule from [id number] Performed By: #### C TPCR, NGPCR1 #### [place] [address] Pulmonary Visit Reporton Pulmonary Visit Report Normal [facility] CTPCRon 09-03-2024 C. trachomatis Interp Normal See CT Interp N [facility] Comment on above: Result Comment: C. t rachomatis DNA not detected. Specimen is presumptive negative for C. trachomatis. A negative result does not preclude C. trachomatis infection because results depend on adequate specimen collection, absence of inhibitors, and sufficient DNA to be detected. See CT Interp N Performed By: #### C TPCR, NGPCR1 #### [place] [id number] C.trachomatis PCR Negative Normal Negative [facility] Comment on above: Result Comment: Mole cular (PCR) assay performed on the Mital[employer] Suzie 4800 system. Performed By: #### C TPCR, NGPCR1 #### [facility] [address] [place] [address] Chlam Source Urine Normal [facility] Comment on above: Performed By: #### C TPCR, NGPCR1 #### [place] [id number] [place] [address] GLUCOSE POCon 09-03-2024 Glucose [Mass/Vol] 336 mg/dL High 70 - 99 mg/dL [facility] Interpretation and review of laboratory results Abnormal [facility] POC Sample Type CAPBL [facility] Test performed at ad dress of the patient encounter. [facility] Glucose [Mass/Vol] 324 mg/dL High 70 - 99 mg/dL [facility] Interpretation and review of laboratory results Abnormal [facility] POC Sample Type CAPBL [facility] Test performed at ad dress of the patient encounter. [facility] Glucose [Mass/Vol] 371 mg/dL High 70 - 99 mg/dL [facility] Interpretation and review of laboratory results Abnormal [facility] POC Sample Type VENO [facility] Test performed at ad dress of the patient encounter. 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 LAB, [facility] Radiology Study observation (narrative) [facility] [id number] 09-03-2024 GC PCR Source Urine Normal [facility] Comment on above: Performed By: #### C TPCR, NGPCR1 #### [address] [address] N. gonorrhoeae (PCR) Negative Normal Negative [facility] Comment on above: Result Comment: Mole cular (PCR) assay performed on the Mitali Suzie 4800 System. Performed By: #### C TPCR, NGPCR1 #### [address] [address] N. gonorrhoeae Interp Normal See NG Interp N [facility] Comment on above: Result Comment: N. g onorrhoeae DNA not detected. Specimen is presumptive negative for N. gonorrhoeae. A negative result does not preclude Neisseria gonorrhoeae infection because results depend on adequate specimen collection, absence of inhibitors, and sufficient DNA to be detected. See NG Interp N Performed By: #### C TPCR, NGPCR1 #### [address] [address] SURG PATH REQUESTon 09-03-19 Case Report Normal [facility] Comment on above: Result Comment: Surg ical Pathology Report Case: [id number] Authorizing Provider: Velasquez Berry MD Collected: 09/03/2024 01:18 PM Ordering Location: [facility] Endoscopy Received: 09/03/2024 02:37 PM Pathologist: ALINA Hart Specimens: A) - TISSUE, antral wall at 50 biopsy, prior EMR site B) - TISSUE, gastric polyps x 6, hx of neuroendocrine tumor Performed By: #### C MPN, LDO #### [facility] (DEFAULT) [address] [place] [address] Clinical History Neuroendocrine tumor [D3A.8]. Medical History: Diabetes mellitus. History of cancer. GERD (gastroesophageal reflux disease). Arthritis. Anxiety. Hyperlipidemia. Renal disease. Hyperthyroidism. Cirrhosis of liver. Obstructive sleep apnea. Liver disease. Normal [facility] Comment on above: Performed By: #### C MPN, LDO #### [facility] (DEFAULT) [address] [place] [address] Gross Description Normal [facility] Comment on above: Result Comment: The specimens are received in two properly labeled containers with the patient's name and accession number. A. The specimen is designated "antral wall at 50 biopsy, prior EMR site" and consists of three, 0.2 to 0.5 cm perry-pink fragments of mucosal tissue. TE 1 B. The specimen is designated "gastric polyps x6, history of neuroendocrine tumor" and consists of six, 0.9 to 1.5 [...] aggregate of fragments Lab Use Only: JobID [id number] Grosser for this case was: Abram Hilton Performed By: #### C MPN, LDO #### [facility] (DEFAULT) [address] [place] [address] [facility] Comment on above: Result Comment: A ak croscopic examination was performed. All controls show appropriate reactivity. All immunohistochemistry (IHC), in situ hybridization (ANNA), and histochemical tests were developed by and are performed at the [facility], Histology and IHC Lab, [address] [place] [address]. All Immunofluorescent (IF) tests were developed by and are performed at the [facility], Renal Division, [address] [place] [address]. All tests reported here, except for PD-L1, have not been cleared by or approved by the [place] Food and Drug Administration (FDA). The laboratory is regulated under CLIA as qualified to perform high-complexity testing. The tests are used for clinical purposes. They should not be regarded as investigational or for research. Performed By: #### C NAHED, SUZANNE #### [facility] (DEFAULT) [address] [place] [address] [facility] Comment on above: Result Comment: A. [...] metaplastic gastritis (AMAG). Clinical correlation is recommended. Rn Teacher slides were reviewed at the daily GI pathology consensus conference and those present in the meeting agreed with the above interpretation. at 1448 EST Performed By: #### C NAHED, SUZANNE #### [facility] (DEFAULT) [address] [place] [address] Professional Interpretation Performed at: Normal [facility] Comment on above: Result Comment: [facility] For Immediate Release to Patient's MyChart? Yes [address] [address] Performed By: #### C MPN, JOANO #### [facility] (DEFAULT) [address] [place] [address] LABORATORYOrdered By: Robby Vega on 09-02-2024 Albumin [...] MALBRon 09-02-2024 U Creatinine 25.2 mg/dL Normal [facility] Comment on above: Performed By: #### C TPCR, NGPCR1 #### [address] [address] U Microalb 114.3 mg/L Normal [facility] Comment on above: Performed By: #### C TPCR, NGPCR1 #### [address] [address] No Panel InformationOrdered By: Zion Bowman on 09-02-2024 Affirm Pathogens DNA Direct Probe Trichomonas vaginalis DNA Probe Negative Gardnerella vaginalis DNA Probe Negative Judie species DNA Probe Positive [facility] CBC AND ELECTRONIC DIFFon Basophils (Bld) [#/Vol] 0.05 10*3/uL Normal 0.00-0.15 [facility] Comment on above: Performed By: #### L [id number] #### [facility] (DEFAULT) [address] [address] Basophils/100 WBC (Bld) 0.5 % Normal [facility] Comment on above: Performed By: #### L [id number] #### [facility] (DEFAULT) [address] [address] DIFF STATUS Electronic Differential Normal [facility] Comment on above: Performed By: #### L [id number] #### [facility] (DEFAULT) [address] [address] Eosinophils (Bld) [#/Vol] 0.19 10*3/uL Normal 0.00-0.42 [facility] Comment on above: Performed By: #### L [id number] #### [facility] (DEFAULT) [address] [address] Eosinophils/100 WBC (Bld) 1.9 % Normal [facility] Comment on above: Performed By: #### L [id number] #### [facility] (DEFAULT) [address] [address] Hematocrit (Bld) [Volume fraction] 35.1 % Normal 34.9-44.3 [facility] Comment on above: Performed By: #### L [id number] #### [facility] (DEFAULT) [address] [address] Hemoglobin (Bld) [Mass/Vol] 11.2 g/dL Low 11.4-15.2 [facility] Comment on above: Performed By: #### L [id number] #### [facility] (DEFAULT) [address] [address] Immature Grans % 0.8 % Normal [facility] Comment on above: Performed By: #### L [id number] #### [facility] (DEFAULT) [address] [address] Immature Grans Absolute 0.08 K/uL Normal <=0.08 [facility] Comment on above: Performed By: #### L [id number] #### [facility] (DEFAULT) [address] [address] Lymphocytes (Bld) [#/Vol] 2.35 10*3/uL Normal 1.16-3.51 [facility] Comment on above: Performed By: #### L [id number] #### [facility] (DEFAULT) [address] [address] Lymphocytes/100 WBC (Bld) 23.3 % Normal [facility] Comment on above: Performed By: #### L [id number] #### [facility] (DEFAULT) [address] [address] MCV (RBC) [Entitic vol] 76.3 fL Low 79.6-97.7 [facility] Comment on above: Performed By: #### L [id number] #### [facility] (DEFAULT) [address] [address] Mean Cell Hgb 24.3 pg Low 25.9-33.9 [facility] Comment on above: Performed By: #### L [id number] #### [facility] (DEFAULT) [address] [address] Mean Cell Hgb Conc 31.9 g/dL Normal 31.4-35.9 [facility] Comment on above: Performed By: #### L [id number] #### [facility] (DEFAULT) [address] [address] Monocytes (Bld) [#/Vol] 0.56 10*3/uL Normal 0.22-0.87 [facility] Comment on above: Performed By: #### L [id number] #### [facility] (DEFAULT) [address] [address] Monocytes/100 WBC (Bld) 5.5 % Normal [facility] Comment on above: Performed By: #### L [id number] #### [facility] (DEFAULT) [address] [place] [address] Nucleated RBC 0.0 /100 WBC Normal <=0.2 [facility] Comment on above: Performed By: #### L [id number] #### [facility] (DEFAULT) [address] [place] [address] Platelet mean volume (Bld) [Entitic vol] 9.8 fL Normal 8.5-12.2 [facility] Comment on above: Performed By: #### L [id number] #### [facility] (DEFAULT) [address] [place] [address] Platelets (Bld) [#/Vol] 215 10*3/uL Normal 150-393 [facility] Comment on above: Performed By: #### L [id number] #### [facility] (DEFAULT) [address] [place] [address] RBC (Bld) [#/Vol] 4.60 10*6/uL Normal 3.91-5.04 [facility] Comment on above: Performed By: #### L [id number] #### [facility] (DEFAULT) [address] [place] [address] RBC Distribution 16.2 % High 10.8-14.9 [facility] Comment on above: Performed By: #### L [id number] #### [facility] (DEFAULT) [address] [place] [address] Segs + Bands Auto 68.0 % Normal [facility] Comment on above: Performed By: #### L [id number] #### [facility] (DEFAULT) [address] [place] [address] Segs + Bands,Absolute Auto 6.87 K/uL Normal 1.64-7.28 [facility] Comment on above: Performed By: #### L [id number] #### [facility] (DEFAULT) [address] [place] [address] WBC (Bld) [#/Vol] 10.10 10*3/uL Normal 3.99-11.19 [facility] Comment on above: Performed By: #### L [id number] #### [facility] (DEFAULT) [address] [place] [address] FERRITINon 08-27-2024 Ferritin [Mass/Vol] 38.2 ng/mL Normal 7.3-270.7 [facility] Comment on above: Performed By: #### F ERIB #### [facility] (DEFAULT) [address] [place] [address] IRON/IRON BINDING/TRANSFERRI Non 08-27-2024 Iron [Mass/Vol] 32 ug/dL Low 40-174 [facility] Comment on above: Performed By: #### Y MMA #### [facility] (DEFAULT) [address] [place] [address] Iron Saturation 10 % Low 20-55 [facility] Comment on above: Performed By: #### Y MMA #### [facility] (DEFAULT) [address] [place] [address] Total Iron Binding Capacity 311 mcg/dL Normal 250-425 [facility] Comment on above: Performed By: #### Y MMA #### [facility] (DEFAULT) [address] [place] [address] Transferrin [Mass/Vol] 249 mg/dL Normal 200-400 [facility] Comment on above: Performed By: #### Y MMA #### [facility] (DEFAULT) [address] [place] [address] Laboratory - Chemistry and C hemistry - challengeon 08-27-2024 Iron [Mass/Vol] 32 ug/dL Low [facility] Iron binding capacity [Mass/Vol] 311 [facility] Iron saturation [Mass fraction] 10 % Low 20 - 55 % [facility] Transferrin [Mass/Vol] 249 mg/dL 200 - 400 mg/dL [facility] Ferritin [Mass/Vol] 38.2 ng/mL 7.3 - 27 0.7 ng/mL [facility] No Panel Informationon 08-27 Interpretation and review of laboratory results Abnormal [facility] Interpretation and review of laboratory results Normal [facility] CT ABDOMEN/PELVIS WITH AND W ITHOUT [...] error, please notify the sender immediately at [phone] and permanently delete the original report and destroy any copies or printouts. Normal [facility] ANTI PARIETAL ANTIBODYon Parietal Cell Antibody Positive Abnormal Negative [facility] Comment on above: Performed By: #### C MPN, LDO #### [facility] (DEFAULT) [address] [address] Quantitative Parietal Cell Ab 1:160 Abnormal (none) [facility] Comment on above: Performed By: #### C MPN, LDO #### [facility] (DEFAULT) [address] [address] CALCITONINon 08-14-2024 Calcitonin <5.00 Normal <=9.53 [facility] Comment on above: Result Comment: This test was performed on the [employer] Immunoassay platform by [employer] which is a two-site sandwich chemiluminescent immunoassay. It is important to note that assays using different manufacturers and/or methods may not be comparable. Performed By: #### C MPN, LDO #### [facility] (DEFAULT) [address] [place] [address] CBC AND ELECTRONIC DIFFon Abs Baso Auto < Normal 0.00-0.15 [facility] Comment on above: Performed By: #### C MPN, LDO #### [facility] (DEFAULT) [address] [place] [address] Basophils/100 WBC (Bld) 0.4 % Normal [facility] Comment on above: Performed By: #### C MPN, LDO #### [facility] (DEFAULT) [address] [place] [address] DIFF STATUS Electronic Differential Normal [facility] Comment on above: Performed By: #### C MPN, LDO #### [facility] (DEFAULT) [address] [place] [address] Eosinophils (Bld) [#/Vol] 0.17 10*3/uL Normal 0.00-0.42 [facility] Comment on above: Performed By: #### C MPN, LDO #### [facility] (DEFAULT) [address] [place] [address] Eosinophils/100 WBC (Bld) 2.2 % Normal [facility] Comment on above: Performed By: #### C MPN, LDO #### [facility] (DEFAULT) [address] [place] [address] Hematocrit (Bld) [Volume fraction] 35.8 % Normal 34.9-44.3 [facility] Comment on above: Performed By: #### C MPN, LDO #### [facility] (DEFAULT) [address] [place] [address] Hemoglobin (Bld) [Mass/Vol] 10.5 g/dL Low 11.4-15.2 [facility] Comment on above: Performed By: #### C MPN, LDO #### [facility] (DEFAULT) [address] [place] [address] Immature Grans % 0.9 % Normal [facility] Comment on above: Performed By: #### C MPN, LDO #### [facility] (DEFAULT) [address] [place] [address] Immature Grans Absolute 0.07 K/uL Normal <=0.08 [facility] Comment on above: Performed By: #### C MPN, LDO #### [facility] (DEFAULT) [address] [place] [address] Lymphocytes (Bld) [#/Vol] 2.51 10*3/uL Normal 1.16-3.51 [facility] Comment on above: Performed By: #### C MPN, LDO #### [facility] (DEFAULT) [address] [place] [address] Lymphocytes/100 WBC (Bld) 33.2 % Normal [facility] Comment on above: Performed By: #### C MPN, LDO #### [facility] (DEFAULT) [address] [place] [address] MCV (RBC) [Entitic vol] 79.4 fL Low 79.6-97.7 [facility] Comment on above: Performed By: #### C MPN, LDO #### [facility] (DEFAULT) [address] [place] [address] Mean Cell Hgb 23.3 pg Low 25.9-33.9 [facility] Comment on above: Performed By: #### C MPN, LDO #### [facility] [facility] (DEFAULT) [address] [place] [address]1955 Mean Cell Hgb Conc 29.3 g/dL Low 31.4-35.9 [facility] Comment on above: Performed By: #### C MPN, LDO #### [facility] (DEFAULT) [address] [place] [address] 43384 Monocytes (Bld) [#/Vol] 0.43 10*3/uL Normal 0.22-0.87 [facility] Comment on above: Performed By: #### C MPN, LDO #### [facility] (DEFAULT) [address] [place] [address] 37119 Monocytes/100 WBC (Bld) 5.7 % Normal [facility] Comment on above: Performed By: #### C MPN, LDO #### [facility] (DEFAULT) [address] [place] [address] 32838 Nucleated RBC 0.0 /100 WBC Normal <=0.2 [facility] Comment on above: Performed By: #### C MPN, LDO #### [facility] (DEFAULT) [address] [place] [address] 85475 Platelet mean volume (Bld) [Entitic vol] 10.6 fL Normal 8.5-12.2 [facility] Comment on above: Performed By: #### C MPN, LDO #### [facility] (DEFAULT) [address] [place] [address] 61259 Platelets (Bld) [#/Vol] 223 10*3/uL Normal 150-393 [facility] Comment on above: Performed By: #### C MPN, LDO #### [facility] (DEFAULT) [address] [place] [address] 51477 RBC (Bld) [#/Vol] 4.51 10*6/uL Normal 3.91-5.04 [facility] Comment on above: Performed By: #### C MPN, LDO #### [facility] (DEFAULT) [address] [place] [address] 52101 RBC Distribution 16.1 % High 10.8-14.9 [facility] Comment on above: Performed By: #### C MPN, LDO #### [facility] (DEFAULT) [address] [place] [address] 64285 Segs + Bands Auto 57.6 % Normal [facility] Comment on above: Performed By: #### C MPN, LDO #### [facility] (DEFAULT) [address] [place] [address] 22258 Segs + Bands,Absolute Auto 4.36 K/uL Normal 1.64-7.28 [facility] Comment on above: Performed By: #### C MPN, LDO #### [facility] (DEFAULT) [address] [place] [address] 88224 WBC (Bld) [#/Vol] 7.57 10*3/uL Normal 3.99-11.19 [facility] Comment on above: Performed By: #### C MPN, LDO #### [facility] (DEFAULT) [address] [address] CHROMOGRANIN Aon 08-14-2024 Chromogranin A 1084 ng/mL High <93 [facility] Comment on above: Result Comment: Impa ired renal or hepatic function or treatment with proton pump inhibitors may result in artifactual elevations of Chromogranin A. ADDITIONAL INFORMATION The testing method is a homogeneous time-resolved immunofluorescent assay manufactured by [employer] and performed on the [employer] Comp[employer] Plus. Values obtained with different assay methods or kits may be different and cannot be used interchangeably. Test results cannot be interpreted as absolute evidence for the presence or absence of malignant disease. In some immunoassays, the presence of unusually high concentrations of analyte may result in a high-dose "hook" effect. This may result in a lower or even normal measured analyte concentration. If the reported result is inconsistent with the clinical presentation, the laboratory should be alerted for troubleshooting. For diagnostic purposes, these immunoassay results should always be assessed in conjunction with the patients medical history, clinical examination and other findings. Test Performed by: [place] [address] Catshovel Driver: Juana Recio Ph.D.; CLIA# [id number] Performed By: #### Y MMA #### [facility] (DEFAULT) [address] [address] COMPREHENSIVE METABOLIC PANE Hakan 08-14-2024 Albumin [Mass/Vol] 3.5 g/dL Normal 3.5-5.0 [facility] Comment on above: Performed By: #### Y MMA #### [facility] (DEFAULT) [address] [address] ALP [Catalytic activity/Vol] 114 U/L Normal 32-126 [facility] Comment on above: Performed By: #### Y MMA #### [facility] (DEFAULT) [address] [address] ALT [Catalytic activity/Vol] 38 U/L Normal 9-48 [facility] Comment on above: Performed By: #### Y MMA #### [facility] (DEFAULT) [address] [place] [address] 64696 Anion gap [Moles/Vol] 11 mmol/L Normal 7-17 [facility] Comment on above: Performed By: #### Y MMA #### [facility] (DEFAULT) [address] [place] [address] 24123 AST [Catalytic activity/Vol] 54 U/L High 10-39 [facility] Comment on above: Performed By: #### Y MMA #### [facility] (DEFAULT) [address] [place] [address] 55758 Bilirubin [Mass/Vol] 0.5 mg/dL Normal <1.5 [facility] Comment on above: Performed By: #### Y MMA #### [facility] (DEFAULT) [address] [place] [address] 13890 Calcium [Mass/Vol] 9.2 mg/dL Normal 8.6-10.5 [facility] Comment on above: Performed By: #### Y MMA #### [facility] (DEFAULT) [address] [place] [address] 92330 Chloride [Moles/Vol] 95 mmol/L Low 98-108 [facility] Comment on above: Performed By: #### Y MMA #### [facility] (DEFAULT) [address] [place] [address] 13740 CO2 [Moles/Vol] 31 mmol/L Normal 21-31 [facility] Comment on above: Performed By: #### Y MMA #### [facility] (DEFAULT) [address] [place] [address] 99115 Creatinine [Mass/Vol] 0.59 mg/dL Normal 0.50-1.20 [facility] Comment on above: Performed By: #### Y MMA #### [facility] (DEFAULT) [address] [place] [address] 12509 eGFR, CKD-EPI, Female > Normal >=60 [facility] Comment on above: Result Comment: Repo rted eGFR is based on the CKD-EPI 2020 equation using creatinine, age, and sex. Performed By: #### Y MMA #### [facility] (DEFAULT) [address] [place] [address] 29141 Glucose [Mass/Vol] 210 mg/dL High 70-99 [facility] Comment on above: Performed By: #### Y MMA #### [facility] (DEFAULT) [address] [place] [address] 98131 Osmolality [Osmolality] 287 mosm/kg Normal 278-305 [facility] Comment on above: Performed By: #### Y MMA #### [facility] (DEFAULT) [address] [place] [address] 32601 Potassium [Moles/Vol] 4.2 mmol/L Normal 3.5-5.0 [facility] Comment on above: Performed By: #### Y MMA #### [facility] (DEFAULT) [address] [place] [address] 91192 Protein [Mass/Vol] 8.1 g/dL Normal 6.4-8.3 [facility] Comment on above: Performed By: #### Y MMA #### [facility] (DEFAULT) [address] [place] [address] 23098 Sodium [Moles/Vol] 133 mmol/L Low 135-145 [facility] Comment on above: Performed By: #### Y MMA #### [facility] (DEFAULT) [address] [place] [address] 02461 Urea nitrogen [Mass/Vol] 12 mg/dL Normal 7-25 [facility] Comment on above: Performed By: #### Y MMA #### [facility] (DEFAULT) [address] [place] [address] 95984 Urea nitrogen/Creatinine [Mass ratio] 20 mg/mg Normal [facility] Comment on above: Performed By: #### Y MMA #### [facility] (DEFAULT) [address] [address] GASTRIN - NON-STIMULATEDon 0 08-14-2024 Gastrin 537 pg/mL High [facility] Comment on above: Result Comment: REFERENCE VALUE <100 Reference ranges valid for >= 8 hour fast. Test Performed by: [place] [address] Catshovel Driver: Juana Recio Ph.D.; CLIA# [id number] Performed By: #### C MPN, LDO #### [facility] (DEFAULT) [address] [place] [address] INTRINSIC FACTOR ANTIBODYon 08-14-2024 INTRINSIC FACTOR BLOCK AB COMMNT SEE COMMENTS Normal [facility] Comment on above: Result Comment: Intr insic Factor Blocking Antibody (IFBA) antibodies are absent in approximately 50% of individuals with pernicious anemia (PA). The absence of elevated IFBA antibodies does not rule out the presence of PA; further studies such as gastrin testing may be indicated. Test Performed by: [place] [address] Catshovel Driver: Juana Recio Ph.D.; CLIA# [id number] Performed By: #### C MPN, LDO #### [facility] (DEFAULT) [address] [address] Intrinsic Factor Blocking Antibody Negative Normal Negative [facility] Comment on above: Performed By: #### C MPN, LDO #### [facility] (DEFAULT) [address] [address] LACTATE DEHYDROGENASEon 07-23 LD Total 167 U/L Normal 100-190 [facility] Comment on above: Performed By: #### Y MMA #### [facility] (DEFAULT) [address] [address] METHYLMALONIC ACIDon 025 METHYLMALONIC ACID 0.34 nmol/mL Normal <=0.40 [facility] Comment on above: Result Comment: ADDITIONAL INFORMATION This test was developed and its performance characteristics determined by [facility] in a manner consistent with CLIA requirements. This test has not been cleared or approved by the U.S. Food and Drug Administration. Test Performed by: [facility] [place] [address] Catshovel Driver: Juana Recio Ph.D.; CLIA# [id number] Performed By: #### Con OTTO #### [facility] (DEFAULT) [address] [place] [address] 01267 PANCREATIC POLYPEPTIDEon Pancreatic Polypeptide 538 pg/mL High <291 [facility] Comment on above: Result Comment: ADDITIONAL INFORMATION This test was developed and its performance characteristics determined by [facility] in a manner consistent with CLIA requirements. This test has not been cleared or approved by the U.S. Food and Drug Administration. Test Performed by: [facility] [address] [place] [address] Catshovel Driver: Juana Recio Ph.D.; CLIA# [id number] Performed By: #### SUZANNE HERNANDEZ #### [facility] (DEFAULT) [address] [address] PTH INTACTon 08-14-2024 Intact PTH 19.6 pg/mL Normal 14.0-72.0 [facility] Comment on above: Performed By: #### SUZANNE HERNANDEZ #### [facility] (DEFAULT) [address] [address] VITAMIN B12on 08-14-2024 Cobalamin (Vitamin B12) [Mass/Vol] 296 pg/mL Normal 211-911 [facility] Comment on above: Result Comment: Test ing of Methylmalonic Acid and Intrinsic Factor Blocking Antibody are recommended if clinical suspicion for pernicious anemia due to B12 deficiency is high for patients with intermediate B12 levels (211 to 400 pg/mL) to rule out spurious heterophile antibodies. Performed By: #### Y MMA #### [facility] (DEFAULT) [address] [place], [place] [address] NUC PET HEAD TO THIGHon NUC PET HEAD TO THIGH EXAM: NUC PET HEAD TO THIGH, 07/30/2024 09:11 AM CLINICAL INDICATIONS: neuroendocrine eval; galium, COMPARISON: No prior studies available for comparison. CT DOSE: DLP: 1188 mGy x cm kVp: 120 TECHNIQUE: Approximately 51 minutes following the intravenous injection of Ga-68 Dotatate 5.3 mCi, the patient was positioned on the Siemens Revision3graph mCT TOF< PET/CT-64, Javy imaging unit. A [...] evidence of other tracer avid lesions. Normal [facility] PT Skull base to mid-thighon 07-30-2024 IMPRESSION: [...] No evidence of other tracer avid lesions. [facility] Rad[facility]narrative[facility] Skull base to mid-thighOr dered By: Mack Bailey on 07-30-2024 [facility] Work Phone: Bedside Glucoseon 07-29-2024 FINGERSTICK GLU 367 mg/dL High 74-106 [facility] Comment on above: Result Comment: ESPERANZA GEMENT OF PATIENT CARE PER NURSING PROTOCOL Performed By: #### L 501.080 ####[facility] [address] [place], [address] FINGERSTICK GLU 370 mg/dL High 74-106 [facility] Comment on above: Result Comment: ESPERANZA GEMENT OF PATIENT CARE PER NURSING PROTOCOL Performed By: #### L 501.080 ####[facility] [address] [place], [address] Colonoscopy Reporton 025 Colonoscopy Report Normal [facility] deOrdered By: Brayan Cast on 07-29-2024 Bedside Glucose (Misc Panel) 367 mg/dL High -106 [facility] Comment on above: MANAGEMENT OF PATIEN T CARE PER NURSING PROTOCOL MR/POSTOP.ANEon 07-29-2024 MR/POSTOP.ANE Normal [facility] MR/UUEHOCLO8kz 07-29-2024 MR/POSTOPAN2 Normal [facility] Surgery Specimen Level Aicha 07-29-2024 Surgery Specimen Level IV Normal [facility] Comment on above: Performed By: #### P SUIV ####[facility] [address] [place], [place], [address] Gastroenterology Visit Repor ton 07-28-2024 Gastroenterology Visit Report Normal [facility] MR/PAT.ANEon 07-28-2024 MR/PAT.ANE Normal [facility] ABD Limited w/ Elastographyo n 07-24-2024 ABD Limited w/ Elastography Normal [facility] GLUCOSE POCon 06-23-2024 Glucose [Mass/Vol] 281 mg/dL High 70 - 99 mg/dL [facility] Interpretation and review of laboratory results Abnormal [facility] POC Sample Type [facility] Test performed at ad dress of the patient encounter. [facility] Miscellaneous Lab Procedureo n 06-23-2024 MISC LAB TEST Normal [facility] Comment on above: Order Comment: SER/R [id number] RDL SER/RF Result Comment: TEST RESULTS LIMITSAutoimmune [...] 80 Strong Positive: >80 TESTING PERFORMED AT [employer]. ORIGINAL REPORT ON FILE IN LAB CONTAINS ADDITIONAL TEST SITE INFORMATION. Performed By: #### L 3410.2350, L501.6710, L3100.5440, L500.4100, L501.2450, L801.1541, L3300.1800, L300.3900, L801.1543, L500.4050, L100.0100 ####[facility] [address] [place], [address] SURG PATH REQUESTon 06-23-20 24 Addendum Normal [facility] Comment on above: Result Comment: This addendum is issued to report on the chromogranin and synaptophysin stains performed on block D1. Neuroendocrine markers chromogranin and synaptophysin show focal linear neuroendocrine cell hyperplasia. All controls show appropriate reactivity. All immunohistochemistry, in situ hybridization, and histochemical tests were developed by and are performed at the [facility], [address] [place] [address]. All tests reported here, except those addressing [...] PM Performed By: #### S URGP #### [facility] (DEFAULT) [address] [place] [address] Case Report Normal [facility] Comment on above: Result Comment: Surg ical Pathology Report Case: [id number] Authorizing Provider: Blas Merrill MD Collected: 06/23/2024 01:48 PM Ordering Location: [facility] Endoscopy Received: 06/23/2024 04:41 PM Pathologist: Mohit Almanzar MD Specimens: A) - TISSUE BIOPSY, FNA Peripancreatic LN B) - TISSUE, previous EMR site midbody C) - STOMACH, distal stomach polyps x2 D) - STOMACH, gastric cardia polyp Performed By: #### S URGP #### [facility] (DEFAULT) [address] [place] [address], [place] [address] Clinical History Neuroendocrine tumor 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 Medical History: Diabetes mellitus. History of cancer. Gastroesophageal reflux disease. Renal disease. Hyperthyroidism. Cirrhosis of liver. Arthritis. Anxiety. Hyperlipidemia. Obstructive sleep apnea. Liver disease. Normal [facility] Comment on above: Performed By: #### S URGP #### [facility] (DEFAULT) [address] [place] [address] Gross Description Normal [facility] Comment on above: Result Comment: The specimens are received in four properly labeled containers with the patient's name and accession number. A. The specimen is designated "FNA peripancreatic LN" and consists of two cores of pale [...] tissue aggregate B. The specimen is designated "previous EMR site mid body" and consists of 25 fragments of perry-pink [...] tissue fragments C. The specimen is designated "distal stomach polyps x2" and consists of five fragments of perry-pink [...] clotted blood D. The specimen is designated "gastric cardia polyp" and consists of one soft perry portion of tissue which is 1.1 x 1.0 x 0.7 cm in greatest dimension. Presumed margin of resection is inked black and the specimen is bisected to reveal perry-red soft, smooth tissue. TE 1 Lab Use Only: JobID [id number] Grosser for this case was: Justice Trejo Performed By: #### S URGP #### [facility] (DEFAULT) [address] [place] [address] Microscopic Description Normal [facility] Comment on above: Result Comment: A mi croscopic examination was performed. All controls show appropriate reactivity. All immunohistochemistry (IHC), in situ hybridization (ANNA), and histochemical tests were developed by and are performed at the [facility], Histology and IHC Lab, [address] [place] [address]. All Immunofluorescent (IF) tests were developed by and are performed at the [facility], Renal Division, [address] [place] [address]. All tests reported here, except for PD-L1, have not been cleared by or approved by the [place] Food and Drug Administration (FDA). The laboratory is regulated under CLIA as qualified to perform high-complexity testing. The tests are used for clinical purposes. They should not be regarded as investigational or for research. Performed By: #### S URGP #### [facility] (DEFAULT) [address] [place] [address] Pathologic Diagnosis Normal [facility] Comment on above: Result Comment: A. L [...] unremarkable. Performed By: #### S URGP #### [facility] (DEFAULT) [address] [address] Professional Interpretation Performed at: [facility] Comment on above: Result Comment: [facility] For Immediate Release [facility] Yes [address] [place] [address] Performed By: #### S URGP #### [facility] (DEFAULT) [address] [place] [address] UPPER EUSon 06-23-2024 [facility] Gastroenterology Patient Name: Leroy Montejo Procedure Date: 06/23/2024 12:48 PM Date of : 1965 Admit Type: Outpatient Age: 58 Room: EUS Proc Room 02 Gender: Female Note Status: Finalized Attending MD: Blas Merrill MD, [id number] Procedure: Upper EUS Indications: Gastric mucosal mass/polyp found on endoscopy Providers: Blas Merrill MD (Doctor), Bia Aggarwal RN (Nurse), Irvin Acosta RN (Nurse), MEL Iniguez (Anesthesia Staff), Danilo Geiger DO (Anesthesia Staff) Referring MD: Karolina Piedra APRN-DESIZING MACHINE OFFBEARER, DNP (Referring MD) Medicines: Monitored Anesthesia Care [...] verified by the physician, the nurse, the neuro psych sales specialist and the geotechnical field technician in the procedure room. Mental Status [...] (Mantis) was successfully placed (MR conditional). 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 There was no bleeding at the end of the procedure. (more content not included)... LAB, [facility] Radiology Study observation (narrative) [facility] Gastric Emptying Studyon Gastric Emptying Study Normal [facility] Endocrinology Visit Reporton 06-08-2024 Endocrinology Visit Report Normal [facility] Fecal Fat, Qualitativeon FATS, NEUTRAL Normal Normal . [facility] Comment on above: Order Comment: Test( s) 600109-Cqvc, Neutral; 491366-Buse, Totalwas developed and its performance characteristicsdetermined by [employer]. It has not been cleared or approvedby the Food and Drug Administration. Result Comment: Norm al (<60 Droplets/HPF) Performed By: #### L 7000.0750, L7000.0300 ####[facility] [address] [place] [id number] FATS, TOTAL Normal Normal . [facility] Comment on above: Order Comment: Test( s) 454622-Lrsi, Neutral; 918168-Fduh, Totalwas developed and its performance characteristicsdetermined by [employer]. It has not been cleared or approvedby the Food and Drug Administration. Result Comment: Norm al (<100 Droplets/HPF)Performed at: [address] [id number] Director: Awais Macias PhD, Phone: [phone] Performed By: #### L 7000.0750, L7000.0300 ####[facility] [address] [facility] [address] L7000.0750on 06-04-2024 P ELASTASE,FECA > 800 Normal >200 [facility] Comment on above: Result Comment: Resu lt Units: ug Elast./g Severe Pancreatic Insufficiency: <100 Moderate Pancreatic Insufficiency: 100 - 200 Normal: >200Performed at: [address] [id number] Director: Johnny Cruz MD, Phone: [phone] Performed By: #### L 7000.0750, L7000.0300 ####[facility] [address] [place], [place], [id number] Elastase.pancreatic (Stl) [M ass/Mass]Ordered By: Ralph Singh on 06-02-2024 Stool Pancreatic Elastase > 800 >200 [facility] Comment on above: Result Units: ug Zari st./g Severe Pancreatic Insufficiency: <100 Moderate Pancreatic Insufficiency: 100 - 200 Normal: >200Performed at: - [facility] [id number] Director: Johnny Cruz MD, Phone: [phone] Fat Ql (Stl)Ordered By: Quintin Singh on 06-02-2024 Stool Total Fats Normal . [facility] Comment on above: Normal (<100 Droplet s/HPF)Performed at: - [facility] [id number] Director: Awais Macias PhD, Phone: [phone] No Panel InformationOrdered By: Ralph Singh on 06-02-2024 Stool Neutral Fats Normal . [facility] Comment on above: Normal (<60 Droplets /HPF) Celiac AB,Comprehensiveon ANTIGLIADIN IGA 1 units Normal 0-19 [facility] Comment on above: Order Comment: Blanca c Antibodies tTG IgA/DGP IgG Screen Result Comment: Nega tive 0 - 19 Weak Positive 20 - 30 Moderate to Strong Positive >30 Performed By: #### L 3410.2350, L501.6710, L3100.5440, L500.4100, L501.2450, L801.1541, L3300.1800, L300.3900, L801.1543, L500.4050, L100.0100 ####[facility] [address] [facility] [address] [place], [place], [id number] ANTIGLIADIN IGG 3 units Normal 0-19 [facility] Comment on above: Order Comment: Blanca c Antibodies tTG IgA/DGP IgG Screen Result Comment: Nega tive 0 - 19 Weak Positive 20 - 30 Moderate to Strong Positive >30 Performed By: #### L 3410.2350, L501.6710, L3100.5440, L500.4100, L501.2450, L801.1541, L3300.1800, L300.3900, L801.1543, L500.4050, L100.0100 ####[facility] [address] [place], [place], [id number] ENDOMYSIAL IGA Negative Normal Negative [facility] Comment on above: Order Comment: Blanca c Antibodies tTG IgA/DGP IgG Screen Performed By: #### L 3410.2350, L501.6710, L3100.5440, L500.4100, L501.2450, L801.1541, L3300.1800, L300.3900, L801.1543, L500.4050, L100.0100 ####[facility] [address] [place], [place], [id number] IMMUNOGLOB A QN < 5 Low 87-352 [facility] Comment on above: Order Comment: Blanca c Antibodies tTG IgA/DGP IgG Screen Result Comment: Resu lt confirmed on concentration. Performed By: #### L 3410.2350, L501.6710, L3100.5440, L500.4100, L501.2450, L801.1541, L3300.1800, L300.3900, L801.1543, L500.4050, L100.0100 ####[facility] [address] [place], [place], [id number] tTG IGA <2 Normal 0-3 [facility] Comment on above: Order Comment: Blanca c Antibodies tTG IgA/DGP IgG Screen Result Comment: Nega tive 0 - 3 Weak Positive 4 - 10 Positive >10 Tissue Transglutaminase (tTG) has been identified as the endomysial antigen. Studies have demonstr- ated that endomysial IgA antibodies have over 99% specificity for gluten sensitive enteropathy. Performed By: #### L 3410.2350, L501.6710, L3100.5440, L500.4100, L501.2450, L801.1541, L3300.1800, L300.3900, L801.1543, L500.4050, L100.0100 ####[facility] [address] [place], [place], [phone] tTG IGG 5 U/mL Normal 0-5 [facility] Comment on above: Order Comment: Blanca c Antibodies tTG IgA/DGP IgG Screen Result Comment: Nega tive 0 - 5 Weak Positive 6 - 9 Positive >9 Performed By: #### L 3410.2350, L501.6710, L3100.5440, L500.4100, L501.2450, L801.1541, L3300.1800, L300.3900, L801.1543, L500.4050, L100.0100 ####[facility] [address] [place], [place], [phone] Gastrin, Serumon 06-01-2024 GASTRIN 740 pg/mL High 0-115 [facility] Comment on above: Order Comment: Blanca c Antibodies tTG IgA/DGP IgG Screen Result Comment: Siem [facility] Immulite 2000 Immunochemiluminometric assay (ICMA)Values obtained with different assay methods or kits cannotbe used interchangeably. Results cannot be interpreted asabsolute evidence of the presence or absence of malignantdisease.Performed at: [facility] [address] [id number] Director: Awais Macias PhD, Phone: [phone] at: [facility] [address] [id number] Director: Johnny Cruz MD, Phone: [phone] Performed By: #### L 3410.2350, L501.6710, L3100.5440, L500.4100, L501.2450, L801.1541, L3300.1800, L300.3900, L801.1543, L500.4050, L100.0100 ####[facility] [address] [place], [place], [phone] Miscellaneous Lab Procedure 2on 06-01-2024 [facility] [place] 2 Normal [facility] Comment on above: Order Comment: Comme nts: Celiac Antibodies tTG IgA/DGP IgG ScreenSER/[id number] CELIAC ANTIBODY SER/RT Result Comment: TEST RESULTS [...] to Strong Positive >30 TESTING PERFORMED AT [facility]. ORIGINAL REPORT ON FILE IN LAB CONTAINS ADDITIONAL TEST SITE INFORMATION. Performed By: #### L 3410.2350, L501.6710, L3100.5440, L500.4100, L501.2450, L801.1541, L3300.1800, L300.3900, L801.1543, L500.4050, L100.0100 ####[facility] [address] [place], [address] JOSTIN Comprehensive Panelon JOSTIN TABLE Comment Normal . [facility] Comment on above: Result Comment: Auto antibody Disease Association ------- Condition Frequency ---------Antinuclear Antibody, SLE, mixed connectiveDirect (JOSTIN-D) tissue diseases ---------dsDNA SLE 40 - 60% ---------Chromatin Drug induced SLE 90% SLE 48 - 97% ---------SSA (Ro) SLE 25 - 35% Sjogren's Syndrome 40 - 70% Lupus 100% ---------SSB (La) SLE 10% Sjogren's Syndrome 30% ---------Sm (anti-Wheeler) SLE 15 - 30% ---------BASKET OPERATOR Mixed Connective Tissue Disease 95%(U1 nRNP, SLE 30 - 50%anti-ribonucleoprotein) Polymyositis and/or Dermatomyositis 20% ---------Scl-70 (antiDNA Scleroderma (diffuse) 20 - 35%topoisomerase) Crest 13% ---------Cheyenne-1 Polymyositis and/or Dermatomyositis 20 - 40% ---------Centromere B Scleroderma - Crest variant 80%Performed at: [address] [id number] Director: Awais Macias PhD, Phone: [phone] Performed By: #### L 3410.2350, L501.6710, L3100.5440, L500.4100, L501.2450, L801.1541, L3300.1800, L300.3900, L801.1543, L500.4050, L100.0100 ####[facility] [address] [facility] [place], [address] ANTI-CENT B AB <0.2 Normal 0.0-0.9 [facility] Comment on above: Performed By: #### L 3410.2350, L501.6710, L3100.5440, L500.4100, L501.2450, L801.1541, L3300.1800, L300.3900, L801.1543, L500.4050, L100.0100 ####[facility] [address] [facility] [place], [place], [phone] ANTI-DNA (DS)AB <1 Normal 0-9 [facility] Comment on above: Result Comment: Nega tive <5 Equivocal 5 - 9 Positive >9 Performed By: #### L 3410.2350, L501.6710, L3100.5440, L500.4100, L501.2450, L801.1541, L3300.1800, L300.3900, L801.1543, L500.4050, L100.0100 ####[facility] [address] [place], [address] ANTI-CHEYENNE-1 <0.2 Normal 0.0-0.9 [facility] Comment on above: Performed By: #### L 3410.2350, L501.6710, L3100.5440, L500.4100, L501.2450, L801.1541, L3300.1800, L300.3900, L801.1543, L500.4050, L100.0100 ####[facility] [address] [place], [place], [phone] ANTI-SS-A < 0.2 Normal 0.0-0.9 [facility] Comment on above: Performed By: #### L 3410.2350, L501.6710, L3100.5440, L500.4100, L501.2450, L801.1541, L3300.1800, L300.3900, L801.1543, L500.4050, L100.0100 ####[facility] [address] [place], [address] ANTI-SS-B < 0.2 Normal 0.0-0.9 [facility] Comment on above: Performed By: #### L 3410.2350, L501.6710, L3100.5440, L500.4100, L501.2450, L801.1541, L3300.1800, L300.3900, L801.1543, L500.4050, L100.0100 ####[facility] [address] [place], [address] ANTICHROMATIN <0.2 Normal 0.0-0.9 [facility] Comment on above: Performed By: #### L 3410.2350, L501.6710, L3100.5440, L500.4100, L501.2450, L801.1541, L3300.1800, L300.3900, L801.1543, L500.4050, L100.0100 ####[facility] [address] [place], [place], [phone] ANTISCLERODERM <0.2 Normal 0.0-0.9 [facility] Comment on above: Performed By: #### L 3410.2350, L501.6710, L3100.5440, L500.4100, L501.2450, L801.1541, L3300.1800, L300.3900, L801.1543, L500.4050, L100.0100 ####[facility] [address] [place] [phone] BASKET OPERATOR Ab 0.2 AI Normal 0.0-0.9 [facility] Comment on above: Performed By: #### L 3410.2350, L501.6710, L3100.5440, L500.4100, L501.2450, L801.1541, L3300.1800, L300.3900, L801.1543, L500.4050, L100.0100 ####[facility] [address] [place] [phone] WHEELER Ab <0.2 Normal 0.0-0.9 [facility] Comment on above: Performed By: #### L 3410.2350, L501.6710, L3100.5440, L500.4100, L501.2450, L801.1541, L3300.1800, L300.3900, L801.1543, L500.4050, L100.0100 ####[facility] [address] [place] [phone] CBC W/Diff, Automatedon 11-0 8-2023 Absolute Lymph 2.37 X10 3/uL Normal 0.83-4.51 [facility] Comment on above: Performed By: #### L 3410.2350, L501.6710, L3100.5440, L500.4100, L501.2450, L801.1541, L3300.1800, L300.3900, L801.1543, L500.4050, L100.0100 ####[facility] [address] [place], [phone] Absolute Neut 5.6 X10 3/uL Normal 2.0-7.7 [facility] Comment on above: Performed By: #### L 3410.2350, L501.6710, L3100.5440, L500.4100, L501.2450, L801.1541, L3300.1800, L300.3900, L801.1543, L500.4050, L100.0100 ####[facility] [address] [place], [place], [phone] Basophils/100 WBC (Bld) 0.7 % Normal 0-1 [facility] Comment on above: Performed By: #### L 3410.2350, L501.6710, L3100.5440, L500.4100, L501.2450, L801.1541, L3300.1800, L300.3900, L801.1543, L500.4050, L100.0100 ####[facility] [address] [place], [phone]) Eosinophils/100 WBC (Bld) 2.7 % Normal 0-5 [facility] Comment on above: Performed By: #### L 3410.2350, L501.6710, L3100.5440, L500.4100, L501.2450, L801.1541, L3300.1800, L300.3900, L801.1543, L500.4050, L100.0100 ####[facility] [address] [place], [address] Erythrocyte distribution width (RBC) [Ratio] 15.5 % High 11.6-14.6 [facility] Comment on above: Performed By: #### L 3410.2350, L501.6710, L3100.5440, L500.4100, L501.2450, L801.1541, L3300.1800, L300.3900, L801.1543, L500.4050, L100.0100 ####[facility] [address], [address] Hematocrit (Bld) [Volume fraction] 37.4 % Normal 37-47 [facility] Comment on above: Performed By: #### L 3410.2350, L501.6710, L3100.5440, L500.4100, L501.2450, L801.1541, L3300.1800, L300.3900, L801.1543, L500.4050, L100.0100 ####[facility] [address] [place], [address] Hemoglobin (Bld) [Mass/Vol] 11.3 g/dL Low 12.0-15.0 [facility] Comment on above: Performed By: #### L 3410.2350, L501.6710, L3100.5440, L500.4100, L501.2450, L801.1541, L3300.1800, L300.3900, L801.1543, L500.4050, L100.0100 ####[facility] [address], [address] IG% 0.900 Normal 0.0-0.9 [facility] Comment on above: Result Comment: IG% - Immature Granulocytes (promyelocytes, myelocytes andmetamyelocytes) > 1% indicates that a LEFT SHIFT is Present. Performed By: #### L 3410.2350, L501.6710, L3100.5440, L500.4100, L501.2450, L801.1541, L3300.1800, L300.3900, L801.1543, L500.4050, L100.0100 ####[facility] [address] [place], [place], [phone]) Lymphocytes/100 WBC (Bld) 26.6 % Normal 19-41 [facility] Comment on above: Performed By: #### L 3410.2350, L501.6710, L3100.5440, L500.4100, L501.2450, L801.1541, L3300.1800, L300.3900, L801.1543, L500.4050, L100.0100 ####[facility] [address] [place], [phone]) MCH (RBC) [Entitic mass] 23.9 pg Low 27.0-32.0 [facility] Comment on above: Performed By: #### L 3410.2350, L501.6710, L3100.5440, L500.4100, L501.2450, L801.1541, L3300.1800, L300.3900, L801.1543, L500.4050, L100.0100 ####[facility] [address] [place], [place], [phone](555) MCHC (RBC) [Mass/Vol] 30.2 g/dL Low 32-36 [facility] Comment on above: Performed By: #### L 3410.2350, L501.6710, L3100.5440, L500.4100, L501.2450, L801.1541, L3300.1800, L300.3900, L801.1543, L500.4050, L100.0100 ####[facility] [address] [place], [address] MCV (RBC) [Entitic vol] 79.1 fL Low 81-99 [facility] Comment on above: Performed By: #### L 3410.2350, L501.6710, L3100.5440, L500.4100, L501.2450, L801.1541, L3300.1800, L300.3900, L801.1543, L500.4050, L100.0100 ####[facility] [address] [place], [address] Monocytes/100 WBC (Bld) 6.5 % Normal 0-10 [facility] Comment on above: Performed By: #### L 3410.2350, L501.6710, L3100.5440, L500.4100, L501.2450, L801.1541, L3300.1800, L300.3900, L801.1543, L500.4050, L100.0100 ####[facility] [address] [place], [address] Neutrophils/100 WBC (Bld) 62.6 % Normal 47-70 [facility] Comment on above: Performed By: #### L 3410.2350, L501.6710, L3100.5440, L500.4100, L501.2450, L801.1541, L3300.1800, L300.3900, L801.1543, L500.4050, L100.0100 ####[facility] [address] [place], [address] Nucleated RBC (Bld) [#/Vol] 0 10*3/uL Normal 0-5 [facility] Comment on above: Performed By: #### L 3410.2350, L501.6710, L3100.5440, L500.4100, L501.2450, L801.1541, L3300.1800, L300.3900, L801.1543, L500.4050, L100.0100 ####[facility] [address] [place], [address] Platelet mean volume (Bld) [Entitic vol] 9.7 fL Normal 6.2-12.0 [facility] Comment on above: Performed By: #### L 3410.2350, L501.6710, L3100.5440, L500.4100, L501.2450, L801.1541, L3300.1800, L300.3900, L801.1543, L500.4050, L100.0100 ####[facility] [address] [place], [address] Platelets (Bld) [#/Vol] 259 10*3/uL Normal 150-450 [facility] Comment on above: Performed By: #### L 3410.2350, L501.6710, L3100.5440, L500.4100, L501.2450, L801.1541, L3300.1800, L300.3900, L801.1543, L500.4050, L100.0100 ####[facility] [address] [place], [address] RBC (Bld) [#/Vol] 4.73 10*6/uL Normal 4.2-5.4 [facility] Comment on above: Performed By: #### L 3410.2350, L501.6710, L3100.5440, L500.4100, L501.2450, L801.1541, L3300.1800, L300.3900, L801.1543, L500.4050, L100.0100 ####[facility] [address] [place], [address] RDW SD 44.1 fl High 35.1-43.9 [facility] Comment on above: Performed By: #### L 3410.2350, L501.6710, L3100.5440, L500.4100, L501.2450, L801.1541, L3300.1800, L300.3900, L801.1543, L500.4050, L100.0100 ####[facility] [address] [place], [place], [phone] WBC (Bld) [#/Vol] 8.9 10*3/uL Normal 4.4-11.0 [facility] Comment on above: Performed By: #### L 3410.2350, L501.6710, L3100.5440, L500.4100, L501.2450, L801.1541, L3300.1800, L300.3900, L801.1543, L500.4050, L100.0100 ####[facility] [address] [facility] [address] [place], [place], [phone] CRPon 05-29-2024 C-REACTIVE PROT 25.90 mg/L High 0.0-3.0 [facility] Comment on above: Order Comment: Blanca c Antibodies tTG IgA/DGP IgG Screen Result Comment: C-Re active Protein (CRP) provides useful information for thediagnosis, therapy and monitoring of inflammatory processesand associated diseases. For the evaluation of Relative Riskfor Cardiovascular Disease, a High Sensitivity CRP (HSCRP)should be ordered. Performed By: #### L 3410.2350, L501.6710, L3100.5440, L500.4100, L501.2450, L801.1541, L3300.1800, L300.3900, L801.1543, L500.4050, L100.0100 ####[facility] [address] [place], [place], [phone] Comprehensive Metabolic Prof ilon 05-29-2024 Albumin [Mass/Vol] 3.6 g/dL Normal 3.2-5.0 [facility] Comment on above: Order Comment: Blanca c Antibodies tTG IgA/DGP IgG Screen Performed By: #### L 3410.2350, L501.6710, L3100.5440, L500.4100, L501.2450, L801.1541, L3300.1800, L300.3900, L801.1543, L500.4050, L100.0100 ####[facility] [address] [place], [place], [phone] Albumin/Globulin [Mass ratio] 0.7 {ratio} Low 0.9-2.4 [facility] Comment on above: Order Comment: Blanca c Antibodies tTG IgA/DGP IgG Screen Performed By: #### L 3410.2350, L501.6710, L3100.5440, L500.4100, L501.2450, L801.1541, L3300.1800, L300.3900, L801.1543, L500.4050, L100.0100 ####[facility] [address] [place], [address] ALK P 122 U/L High 45-117 [facility] Comment on above: Order Comment: Blanca c Antibodies tTG IgA/DGP IgG Screen Performed By: #### L 3410.2350, L501.6710, L3100.5440, L500.4100, L501.2450, L801.1541, L3300.1800, L300.3900, L801.1543, L500.4050, L100.0100 ####[facility] [address] [place], [address] ALT [Catalytic activity/Vol] 38 U/L Normal 13-56 [facility] Comment on above: Order Comment: Blanca c Antibodies tTG IgA/DGP IgG Screen Performed By: #### L 3410.2350, L501.6710, L3100.5440, L500.4100, L501.2450, L801.1541, L3300.1800, L300.3900, L801.1543, L500.4050, L100.0100 ####[facility] [address] [place], [address] AST [Catalytic activity/Vol] 38 U/L High 15-37 [facility] Comment on above: Order Comment: Blanca c Antibodies tTG IgA/DGP IgG Screen Performed By: #### L 3410.2350, L501.6710, L3100.5440, L500.4100, L501.2450, L801.1541, L3300.1800, L300.3900, L801.1543, L500.4050, L100.0100 ####[facility] [address] [place], [place], [phone] Bilirubin [Mass/Vol] 0.70 mg/dL Normal 0.20-1.00 [facility] Comment on above: Order Comment: Blanca c Antibodies tTG IgA/DGP IgG Screen Result Comment: For patients on eltrombopag therapy, use of Dimension [place] TBIL is not recommended. Performed By: #### L 3410.2350, L501.6710, L3100.5440, L500.4100, L501.2450, L801.1541, L3300.1800, L300.3900, L801.1543, L500.4050, L100.0100 ####[facility] [address], [address] BUN/CRE 19.1 RATIO Normal 10-20 [facility] Comment on above: Order Comment: Blanca c Antibodies tTG IgA/DGP IgG Screen Performed By: #### L 3410.2350, L501.6710, L3100.5440, L500.4100, L501.2450, L801.1541, L3300.1800, L300.3900, L801.1543, L500.4050, L100.0100 ####[facility] [address] [place], [place], [phone] CA,Total 10.0 mg/dL Normal 8.5-10.1 [facility] Comment on above: Order Comment: Blanca c Antibodies tTG IgA/DGP IgG Screen Performed By: #### L 3410.2350, L501.6710, L3100.5440, L500.4100, L501.2450, L801.1541, L3300.1800, L300.3900, L801.1543, L500.4050, L100.0100 ####[facility] [address] [place], [place], [phone] Chloride [Moles/Vol] 99 mmol/L Normal 98-107 [facility] Comment on above: Order Comment: Blanca c Antibodies tTG IgA/DGP IgG Screen Performed By: #### L 3410.2350, L501.6710, L3100.5440, L500.4100, L501.2450, L801.1541, L3300.1800, L300.3900, L801.1543, L500.4050, L100.0100 ####[facility] [address] [place], [address] CO2 [Moles/Vol] 31.0 mmol/L Normal 21.0-32.0 [facility] Comment on above: Order Comment: Blanca c Antibodies tTG IgA/DGP IgG Screen Performed By: #### L 3410.2350, L501.6710, L3100.5440, L500.4100, L501.2450, L801.1541, L3300.1800, L300.3900, L801.1543, L500.4050, L100.0100 ####[facility] [address] [place], [place], [phone] Creatinine [Mass/Vol] 0.89 mg/dL Normal 0.55-1.02 [facility] Comment on above: Order Comment: Blanca c Antibodies tTG IgA/DGP IgG Screen Result Comment: The validity of the calculated GFR GFRAA in patients over70 years has not been determined. Clinical correlation isessential. Performed By: #### L 3410.2350, L501.6710, L3100.5440, L500.4100, L501.2450, L801.1541, L3300.1800, L300.3900, L801.1543, L500.4050, L100.0100 ####[facility] [address] [place], [place], [phone] EST GFR - AA 84 mL/min Normal >60 [facility] Comment on above: Order Comment: Blanca c Antibodies tTG IgA/DGP IgG Screen Result Comment: Afri can Citizen Of [place] GFR Calc Performed By: #### L 3410.2350, L501.6710, L3100.5440, L500.4100, L501.2450, L801.1541, L3300.1800, L300.3900, L801.1543, L500.4050, L100.0100 ####[facility] [address] [place], [place], [phone] GAP 4 Low 5-15 [facility] Comment on above: Order Comment: Blanca c Antibodies tTG IgA/DGP IgG Screen Performed By: #### L 3410.2350, L501.6710, L3100.5440, L500.4100, L501.2450, L801.1541, L3300.1800, L300.3900, L801.1543, L500.4050, L100.0100 ####[facility] [address] [place], [place], [phone] GFR/1.73 sq M.predicted among non-blacks MDRD (S/P/Bld) [Vol rate/Area] 69 mL/min/{1.73_m2} Normal >60 [facility] Comment on above: Order Comment: Blanca c Antibodies tTG IgA/DGP IgG Screen Result Comment: Non- GFR Calc Performed By: #### L 3410.2350, L501.6710, L3100.5440, L500.4100, L501.2450, L801.1541, L3300.1800, L300.3900, L801.1543, L500.4050, L100.0100 ####[facility] [address] [place], [place], [phone] Globulin (S) [Mass/Vol] 5.5 g/dL High 2.2-4.2 [facility] Comment on above: Order Comment: Blanca c Antibodies tTG IgA/DGP IgG Screen Performed By: #### L 3410.2350, L501.6710, L3100.5440, L500.4100, L501.2450, L801.1541, L3300.1800, L300.3900, L801.1543, L500.4050, L100.0100 ####[facility] [address] [place], [phone]) Glucose [Mass/Vol] 160 mg/dL High 74-106 [facility] Comment on above: Order Comment: Blanca c Antibodies tTG IgA/DGP IgG Screen Result Comment: Fast ing Glucose result greater than or equal to 126 mg/dLsuggests DIABETES MELLITUS per A.D.A. criteria. Performed By: #### L 3410.2350, L501.6710, L3100.5440, L500.4100, L501.2450, L801.1541, L3300.1800, L300.3900, L801.1543, L500.4050, L100.0100 ####[facility] [address] [place], [place], [phone]) Potassium [Moles/Vol] 4.4 mmol/L Normal 3.5-5.1 [facility] Comment on above: Order Comment: Blanca c Antibodies tTG IgA/DGP IgG Screen Performed By: #### L 3410.2350, L501.6710, L3100.5440, L500.4100, L501.2450, L801.1541, L3300.1800, L300.3900, L801.1543, L500.4050, L100.0100 ####[facility] [address] [place], [phone] Sodium [Moles/Vol] 134 mmol/L Low 136-145 [facility] Comment on above: Order Comment: Blanca c Antibodies tTG IgA/DGP IgG Screen Performed By: #### L 3410.2350, L501.6710, L3100.5440, L500.4100, L501.2450, L801.1541, L3300.1800, L300.3900, L801.1543, L500.4050, L100.0100 ####[facility] [address] [place], [address] T PROT 9.1 g/dL High 6.4-8.2 [facility] Comment on above: Order Comment: Blanca c Antibodies tTG IgA/DGP IgG Screen Performed By: #### L 3410.2350, L501.6710, L3100.5440, L500.4100, L501.2450, L801.1541, L3300.1800, L300.3900, L801.1543, L500.4050, L100.0100 ####[facility] [address] [place], [address] Urea nitrogen [Mass/Vol] 17 mg/dL Normal 7-18 [facility] Comment on above: Order Comment: Blanca c Antibodies tTG IgA/DGP IgG Screen Performed By: #### L 3410.2350, L501.6710, L3100.5440, L500.4100, L501.2450, L801.1541, L3300.1800, L300.3900, L801.1543, L500.4050, L100.0100 ####[facility] [address] [place], [place], [id number] Gastroenterology Visit Repor ton 05-29-2024 Gastroenterology Visit Report Normal [facility] Lipaseon 05-29-2024 Lipase [Catalytic activity/Vol] 38 U/L Normal 13-75 [facility] Comment on above: Order Comment: Blanca c Antibodies tTG IgA/DGP IgG Screen Result Comment: Ronnie mcleod note:LIPASE revised reference range effective 23.New Lipase methodology. Expected to produce lower valuesthan the previous assay method.NEW Reference Range: 13 - 75 U/L Performed By: #### L 3410.2350, L501.6710, L3100.5440, L500.4100, L501.2450, L801.1541, L3300.1800, L300.3900, L801.1543, L500.4050, L100.0100 ####[facility] [address] [place], [address] Lipid Profileon 05-29-2024 Cholesterol [Mass/Vol] 183 mg/dL Normal 200 [facility] Comment on above: Order Comment: Blanca c Antibodies tTG IgA/DGP IgG Screen Result Comment: <200 mg/dL Desirable 200-240 mg/dL Borderline >240 mg/dL High Risk Performed By: #### L 3410.2350, L501.6710, L3100.5440, L500.4100, L501.2450, L801.1541, L3300.1800, L300.3900, L801.1543, L500.4050, L100.0100 ####[facility] [address] [place], [address] Cholesterol in HDL [Mass/Vol] 35 mg/dL Low [facility] Comment on above: Order Comment: Blanca c Antibodies tTG IgA/DGP IgG Screen Result Comment: The drugs N-Acetylcysteine and Metamizole may falselydepress this assay. Reference Range HDL <40 mg/dL Low HDL Cholesterol HDL >or= 60 mg/dL High HDL Cholesterol Performed By: #### L 3410.2350, L501.6710, L3100.5440, L500.4100, L501.2450, L801.1541, L3300.1800, L300.3900, L801.1543, L500.4050, L100.0100 ####[facility] [address] [place], [address] Cholesterol in LDL [Mass/Vol] 95 mg/dL Normal 0-130 [facility] Comment on above: Order Comment: Blanca c Antibodies tTG IgA/DGP IgG Screen Performed By: #### L 3410.2350, L501.6710, L3100.5440, L500.4100, L501.2450, L801.1541, L3300.1800, L300.3900, L801.1543, L500.4050, L100.0100 ####[facility] [address] [place], [place], [phone] Cholesterol in VLDL [Mass/Vol] 53 mg/dL High 5-40 [facility] Comment on above: Order Comment: Blanca c Antibodies tTG IgA/DGP IgG Screen Performed By: #### L 3410.2350, L501.6710, L3100.5440, L500.4100, L501.2450, L801.1541, L3300.1800, L300.3900, L801.1543, L500.4050, L100.0100 ####[facility] [address] [place], [place], [phone] Triglyceride [Mass/Vol] 265 mg/dL High [facility] Comment on above: Order Comment: Blanca c Antibodies tTG IgA/DGP IgG Screen Result Comment: The drugs N-Acetylcysteine and Metamizole may falselydepress this assay.Serum Triglycerides Reference Interval Normal <150 mg/dL Borderline high 150 - 199 mg/dL High 200 - 499 mg/dL Very High > or = 500 mg/dL Performed By: #### L 3410.2350, L501.6710, L3100.5440, L500.4100, L501.2450, L801.1541, L3300.1800, L300.3900, L801.1543, L500.4050, L100.0100 ####[facility] [address] [place], [place], [phone] Prothrombin Time w/INRon INR Coag (PPP) [Relative time] 1.2 {INR} Normal [facility] Comment on above: Performed By: #### L 3410.2350, L501.6710, L3100.5440, L500.4100, L501.2450, L801.1541, L3300.1800, L300.3900, L801.1543, L500.4050, L100.0100 ####[facility] [address] [place], [address] PT Coag (PPP) [Time] 15.1 s High 11.7-14.9 [facility] Comment on above: Performed By: #### L 3410.2350, L501.6710, L3100.5440, L500.4100, L501.2450, L801.1541, L3300.1800, L300.3900, L801.1543, L500.4050, L100.0100 ####[facility] [address] [place], [place], [phone] SURG PATH REQUESTon 05-27-[address] [facility] Comment on above: Result Comment: Surg ical Pathology Report Case: [id number] Authorizing Provider: Karolina Piedra, Collected: 05/27/2024 08:28 AM INDIRA PAYNE [facility]ing [facility] Received: 05/27/2024 08:29 AM DEJA Pathologist: Mohit Almanzar MD Specimen: SURG PATH, Gastric Mass, Biopsy Performed By: #### C MPN, LDO #### [facility] (DEFAULT) [address] [address] Clinical History Request received nida Rod MD for second opinion consultation on slides received: "Please review outside path; endoscopy 04/04/2024 at [facility]. Interested in margins, and grade, size, etc. Thank you". Pre-Op Diagnosis: upper GI bleed. [facility] Comment on above: Performed By: #### C MPN, LDO #### [facility] (DEFAULT) [address] [address] Diagnosis Comments All immunohistochemi hammad stains were performed at outside institution and submitted for review. [facility] Comment on above: Performed By: #### C MPN, LDO #### [facility] (DEFAULT) [address] [place] [address] Gross Description [facility] Comment on above: Result Comment: The following material(s) are received from [facility], [address] [place] [id number], with an identifying surgical pathology report: 7 H&E slide(s) and 16 non-H&E slide(s), labeled [id number]. Outside materials are returned in sixty (60) days under separate cover with our number recorded on them. Grosser for this case was: Rosa Hardin Performed By: #### C NAHED, LDO #### [facility] (DEFAULT) [address] [place] [address] Microscopic Description A microscopic examination was performed. [facility] Comment on above: Performed By: #### C NAHED, LDO #### [facility] (DEFAULT) [address] [place] [address] [address] [facility] Comment on above: Result Comment: Outs jina Slides: [id number] (04/04/2024) A. Gastric Mass, Biopsy: Well differentiated [...] CK7. CK8 and CK20. Performed By: #### C MPN, LDO #### [facility] (DEFAULT) [address] [place] [address] Professional Interpretation Performed at: [facility] Comment on above: Result Comment: [facility] For Immediate Release to Patient's MyChart? Yes [address] [place], [place] [address] Performed By: #### C MPN, JOANO #### [facility] (DEFAULT) [address] [place] [address] AFP, Tumor Markeron 05-14-20 AFP TUMOR PAPA < 1.8 Normal 0.0-9.2 [facility] Comment on above: Order Comment: Test( s) 251752-Jxjvfa, Serum or Plasmawas developed and its performance characteristicsdetermined by [facility]. It has not been cleared or approvedby the Food and Drug Administration.NNN Result Comment: [facility] Electrochemiluminescence Immunoassay(ECLIA)Values obtained with different assay methods or kits cannotbe used interchangeably. Results cannot be interpreted asabsolute evidence of the presence or absence of malignantdisease.This test is not interpretable in females. Performed By: #### L 3300.0100, L3400.0700, L3100.5450, L501.9520, L506.0400, L803.2200, L100.0100, L500.4050, L3300.0700, L500.4100, L800.1280, L3410.2400, L501.9985, L3100.1850, L504.2610, L300.3900, L3200.1100, L3000.0375, L503.6030, L3890.6005, L501.6710, L3300.1200, L503.6550, L501.4700, L503.5510, L3130.0010, L506.1000, L3100.3425 ####[facility] [address] [place], [place], [phone] ANCAon 05-14-2024 Atypical pANCA <1:20 Normal Neg:<1:20 [facility] Comment on above: Order Comment: Test( s) 863376-Jnwgbh, Serum or Plasmawas developed and its performance characteristicsdetermined by [facility]. It has not been cleared or approvedby the Food and Drug Administration.NNN Result Comment: The atypical pANCA pattern has been observed in asignificant percentage of patients with ulcerative colitis,primary sclerosing cholangitis and autoimmune hepatitis. Performed By: #### L 3300.0100, L3400.0700, L3100.5450, L501.9520, L506.0400, L803.2200, L100.0100, L500.4050, L3300.0700, L500.4100, L800.1280, L3410.2400, L501.9985, L3100.1850, L504.2610, L300.3900, L3200.1100, L3000.0375, L503.6030, L3890.6005, L501.6710, L3300.1200, L503.6550, L501.4700, L503.5510, L3130.0010, L506.1000, L3100.3425 ####[facility] [address] [facility] [place], [place], [phone] Cytoplasmic Ab 1:80 Abnormal Neg:<1:20 [facility] Comment on above: Order Comment: Test( s) 241658-Cqrphf, Serum or Plasmawas developed and its performance characteristicsdetermined by [facility]. It has not been cleared or approvedby the Food and Drug Administration.NNN Performed By: #### L 3300.0100, L3400.0700, L3100.5450, L501.9520, L506.0400, L803.2200, L100.0100, L500.4050, L3300.0700, L500.4100, L800.1280, L3410.2400, L501.9985, L3100.1850, L504.2610, L300.3900, L3200.1100, L3000.0375, L503.6030, L3890.6005, L501.6710, L3300.1200, L503.6550, L501.4700, L503.5510, L3130.0010, L506.1000, L3100.3425 ####[facility] [address] [facility] [place], [place], [address] Perinuclear Ab. <1:20 Normal Neg:<1:20 [facility] Comment on above: Order Comment: Test( s) 594059-Ttsfts, Serum or Plasmawas developed and its performance characteristicsdetermined by [facility]. It has not been cleared or approvedby the Food and Drug Administration.NNN Result Comment: The presence of positive fluorescence exhibiting P-ANCA orC-ANCA patterns alone is not specific for the diagnosis ofWegener's Granulomatosis (WG) or microscopic polyangiitis.Decisions about treatment should not be based solely onANCA IFA results. The International ANCA Group Consensusrecommends follow up testing of positive sera with both IN-3 and MPO-ANCA enzyme immunoassays. As many as 5% serumsamples are positive only by EIA. Ref. AM J Clin Chhnig0448;111:507-513. Performed By: #### L 3300.0100, L3400.0700, L3100.5450, L501.9520, L506.0400, L803.2200, L100.0100, L500.4050, L3300.0700, L500.4100, L800.1280, L3410.2400, L501.9985, L3100.1850, L504.2610, L300.3900, L3200.1100, L3000.0375, L503.6030, L3890.6005, L501.6710, L3300.1200, L503.6550, L501.4700, L503.5510, L3130.0010, L506.1000, L3100.3425 ####[facility] [address] [place], [place], [phone] Anti-Smooth Muscle ABSon ANTISMOOTH MUSC 24 Units Abnormal 0-19 [facility] Comment on above: Order Comment: Test( s) 021973-Bbkcgr, Serum or Plasmawas developed and its performance characteristicsdetermined by [facility]. It has not been cleared or approvedby the Food and Drug Administration.NNN Result Comment: Nega tive 0 - 19 Weak positive 20 - 30 Moderate to strong positive >30 Actin Antibodies are found in 52-85% of patients with autoimmune hepatitis or chronic active hepatitis and in 22% of patients with primary biliary cirrhosis. Performed By: #### L 3300.0100, L3400.0700, L3100.5450, L501.9520, L506.0400, L803.2200, L100.0100, L500.4050, L3300.0700, L500.4100, L800.1280, L3410.2400, L501.9985, L3100.1850, L504.2610, L300.3900, L3200.1100, L3000.0375, L503.6030, L3890.6005, L501.6710, L3300.1200, L503.6550, L501.4700, L503.5510, L3130.0010, L506.1000, L3100.3425 ####[facility] [address] [facility] [place], [place], [address] Celiac Disease Profileon ENDOMYSIAL IGA Negative Normal Negative [facility] Comment on above: Order Comment: Test( s) 342055-Gdlhgb, Serum or Plasmawas developed and its performance characteristicsdetermined by [facility]. It has not been cleared or approvedby the Food and Drug Administration.NNN Performed By: #### L 3300.0100, L3400.0700, L3100.5450, L501.9520, L506.0400, L803.2200, L100.0100, L500.4050, L3300.0700, L500.4100, L800.1280, L3410.2400, L501.9985, L3100.1850, L504.2610, L300.3900, L3200.1100, L3000.0375, L503.6030, L3890.6005, L501.6710, L3300.1200, L503.6550, L501.4700, L503.5510, L3130.0010, L506.1000, L3100.3425 ####[facility] [address] [facility] [place], [address] tTG IGA <2 Normal 0-3 [facility] Comment on above: Order Comment: Test( s) 066400-Vkvaow, Serum or Plasmawas developed and its performance characteristicsdetermined by [facility]. It has not been cleared or approvedby the Food and Drug Administration.NNN Result Comment: Nega tive 0 - 3 Weak Positive 4 - 10 Positive >10 Tissue Transglutaminase (tTG) has been identified as the endomysial antigen. Studies have demonstr- ated that endomysial IgA antibodies have over 99% specificity for gluten sensitive enteropathy. Performed By: #### L 3300.0100, L3400.0700, L3100.5450, L501.9520, L506.0400, L803.2200, L100.0100, L500.4050, L3300.0700, L500.4100, L800.1280, L3410.2400, L501.9985, L3100.1850, L504.2610, L300.3900, L3200.1100, L3000.0375, L503.6030, L3890.6005, L501.6710, L3300.1200, L503.6550, L501.4700, L503.5510, L3130.0010, L506.1000, L3100.3425 ####[facility] [address] [place], [address] tTG IGG 7 U/mL Abnormal 0-5 [facility] Comment on above: Order Comment: Test( s) 359814-Xaermm, Serum or Plasmawas developed and its performance characteristicsdetermined by [facility]. It has not been cleared or approvedby the Food and Drug Administration.NNN Result Comment: Nega tive 0 - 5 Weak Positive 6 - 9 Positive >9 Performed By: #### L 3300.0100, L3400.0700, L3100.5450, L501.9520, L506.0400, L803.2200, L100.0100, L500.4050, L3300.0700, L500.4100, L800.1280, L3410.2400, L501.9985, L3100.1850, L504.2610, L300.3900, L3200.1100, L3000.0375, L503.6030, L3890.6005, L501.6710, L3300.1200, L503.6550, L501.4700, L503.5510, L3130.0010, L506.1000, L3100.3425 ####[facility] [address] [place], [place], [phone] Ceruloplasminon 05-14-2024 CERULOPLASMIN 34.4 mg/dL Normal 19.0-39.0 [facility] Comment on above: Order Comment: Test( s) 671028-Neuzvc, Serum or Plasmawas developed and its performance characteristicsdetermined by [facility]. It has not been cleared or approvedby the Food and Drug Administration.NNN Performed By: #### L 3300.0100, L3400.0700, L3100.5450, L501.9520, L506.0400, L803.2200, L100.0100, L500.4050, L3300.0700, L500.4100, L800.1280, L3410.2400, L501.9985, L3100.1850, L504.2610, L300.3900, L3200.1100, L3000.0375, L503.6030, L3890.6005, L501.6710, L3300.1200, L503.6550, L501.4700, L503.5510, L3130.0010, L506.1000, L3100.3425 ####[facility] [address] [place], [address] Copper, Serum or Plasmaon COPPER, SERUM 130 ug/dL Normal 80-158 [facility] Comment on above: Order Comment: Test( s) 496442-Szhsuz, Serum or Plasmawas developed and its performance characteristicsdetermined by [facility]. It has not been cleared or approvedby the Food and Drug Administration.NNN Result Comment: Dete ction Limit = 5 Performed By: #### L 3300.0100, L3400.0700, L3100.5450, L501.9520, L506.0400, L803.2200, L100.0100, L500.4050, L3300.0700, L500.4100, L800.1280, L3410.2400, L501.9985, L3100.1850, L504.2610, L300.3900, L3200.1100, L3000.0375, L503.6030, L3890.6005, L501.6710, L3300.1200, L503.6550, L501.4700, L503.5510, L3130.0010, L506.1000, L3100.3425 ####[facility] [address] [place], [place], [phone] Haptoglobinon 05-14-2024 HAPTOGLOBIN 182 mg/dL Normal 33-346 [facility] Comment on above: Order Comment: Test( s) 235059-Wbqynb, Serum or Plasmawas developed and its performance characteristicsdetermined by [facility]. It has not been cleared or approvedby the Food and Drug Administration.NNN Result Comment: Perf ormed at: [facility] [address] [id number] Director: Awais Macias PhD, Phone: [phone] at: [facility] [address] [id number] Director: Johnny Cruz MD, Phone: [phone] Performed By: #### L 3300.0100, L3400.0700, L3100.5450, L501.9520, L506.0400, L803.2200, L100.0100, L500.4050, L3300.0700, L500.4100, L800.1280, L3410.2400, L501.9985, L3100.1850, L504.2610, L300.3900, L3200.1100, L3000.0375, L503.6030, L3890.6005, L501.6710, L3300.1200, L503.6550, L501.4700, L503.5510, L3130.0010, L506.1000, L3100.3425 ####[facility] [address] [place], [place], [phone] Hepatitis Panel Acuteon 10-2 COMMENT Comment Normal . [facility] Comment on above: Order Comment: Test( s) 671492-Ztptpr, Serum or Plasmawas developed and its performance characteristicsdetermined by [facility]. It has not been cleared or approvedby the Food and Drug Administration.NNN Result Comment: Not infected with HCV unless early or acute infection issuspected (which may be delayed in an immunocompromisedindividual), or other evidence exists to indicate HCVinfection. Performed By: #### L 3300.0100, L3400.0700, L3100.5450, L501.9520, L506.0400, L803.2200, L100.0100, L500.4050, L3300.0700, L500.4100, L800.1280, L3410.2400, L501.9985, L3100.1850, L504.2610, L300.3900, L3200.1100, L3000.0375, L503.6030, L3890.6005, L501.6710, L3300.1200, L503.6550, L501.4700, L503.5510, L3130.0010, L506.1000, L3100.3425 ####[facility] [address] [place], [place], [phone] HEP B CORE,IgM Negative Normal Negative [facility] Comment on above: Order Comment: Test( s) 687479-Zrexqx, Serum or Plasmawas developed and its performance characteristicsdetermined by [facility]. It has not been cleared or approvedby the Food and Drug Administration.NNN Performed By: #### L 3300.0100, L3400.0700, L3100.5450, L501.9520, L506.0400, L803.2200, L100.0100, L500.4050, L3300.0700, L500.4100, L800.1280, L3410.2400, L501.9985, L3100.1850, L504.2610, L300.3900, L3200.1100, L3000.0375, L503.6030, L3890.6005, L501.6710, L3300.1200, L503.6550, L501.4700, L503.5510, L3130.0010, L506.1000, L3100.3425 ####[facility] [address] [facility] [place], [address] HEP B SURF AG Negative Normal Negative [facility] Comment on above: Order Comment: Test( s) 848586-Ygxrkx, Serum or Plasmawas developed and its performance characteristicsdetermined by [facility]. It has not been cleared or approvedby the Food and Drug Administration.NNN Performed By: #### L 3300.0100, L3400.0700, L3100.5450, L501.9520, L506.0400, L803.2200, L100.0100, L500.4050, L3300.0700, L500.4100, L800.1280, L3410.2400, L501.9985, L3100.1850, L504.2610, L300.3900, L3200.1100, L3000.0375, L503.6030, L3890.6005, L501.6710, L3300.1200, L503.6550, L501.4700, L503.5510, L3130.0010, L506.1000, L3100.3425 ####[facility] [address] [facility] [place], [address] HEP C VIRUS AB Non-Reactive Normal Non Reactive [facility] Comment on above: Order Comment: Test( s) 691622-Gprkab, Serum or Plasmawas developed and its performance characteristicsdetermined by [facility]. It has not been cleared or approvedby the Food and Drug Administration.NNN Performed By: #### L 3300.0100, L3400.0700, L3100.5450, L501.9520, L506.0400, L803.2200, L100.0100, L500.4050, L3300.0700, L500.4100, L800.1280, L3410.2400, L501.9985, L3100.1850, L504.2610, L300.3900, L3200.1100, L3000.0375, L503.6030, L3890.6005, L501.6710, L3300.1200, L503.6550, L501.4700, L503.5510, L3130.0010, L506.1000, L3100.3425 ####[facility] [address] [place], [address] HEPATITIS A-IgM Negative Normal Negative [facility] Comment on above: Order Comment: Test( s) 027505-Wggbcv, Serum or Plasmawas developed and its performance characteristicsdetermined by [facility]. It has not been cleared or approvedby the Food and Drug Administration.NNN Result Comment: A ne gative anti-HAV IgM result suggests no recent orcurrent HAV infection. Performed By: #### L 3300.0100, L3400.0700, L3100.5450, L501.9520, L506.0400, L803.2200, L100.0100, L500.4050, L3300.0700, L500.4100, L800.1280, L3410.2400, L501.9985, L3100.1850, L504.2610, L300.3900, L3200.1100, L3000.0375, L503.6030, L3890.6005, L501.6710, L3300.1200, L503.6550, L501.4700, L503.5510, L3130.0010, L506.1000, L3100.3425 ####[facility] [address] [place], [address] NITIN + Protein Elect, Serumon 10-24-2024 Albumin [Mass/Vol] 3.2 g/dL Normal 2.9-4.4 [facility] Comment on above: Order Comment: Test( s) 433272-Ximdgy, Serum or Plasmawas developed and its performance characteristicsdetermined by [facility]. It has not been cleared or approvedby the Food and Drug Administration.NNN Performed By: #### L 3300.0100, L3400.0700, L3100.5450, L501.9520, L506.0400, L803.2200, L100.0100, L500.4050, L3300.0700, L500.4100, L800.1280, L3410.2400, L501.9985, L3100.1850, L504.2610, L300.3900, L3200.1100, L3000.0375, L503.6030, L3890.6005, L501.6710, L3300.1200, L503.6550, L501.4700, L503.5510, L3130.0010, L506.1000, L3100.3425 ####[facility] [address] [place], [place], [phone] Albumin/Globulin [Mass ratio] 0.7 {ratio} Normal 0.7-1.7 [facility] Comment on above: Order Comment: Test( s) 402315-Giruzg, Serum or Plasmawas developed and its performance characteristicsdetermined by [facility]. It has not been cleared or approvedby the Food and Drug Administration.NNN Performed By: #### L 3300.0100, L3400.0700, L3100.5450, L501.9520, L506.0400, L803.2200, L100.0100, L500.4050, L3300.0700, L500.4100, L800.1280, L3410.2400, L501.9985, L3100.1850, L504.2610, L300.3900, L3200.1100, L3000.0375, L503.6030, L3890.6005, L501.6710, L3300.1200, L503.6550, L501.4700, L503.5510, L3130.0010, L506.1000, L3100.3425 ####[facility] [address] [facility] [place], [address] SGGWN-7-ZYCU 0.3 g/dL Normal 0.0-0.4 [facility] Comment on above: Order Comment: Test( s) 379644-Aytzow, Serum or Plasmawas developed and its performance characteristicsdetermined by [facility]. It has not been cleared or approvedby the Food and Drug Administration.NNN Performed By: #### L 3300.0100, L3400.0700, L3100.5450, L501.9520, L506.0400, L803.2200, L100.0100, L500.4050, L3300.0700, L500.4100, L800.1280, L3410.2400, L501.9985, L3100.1850, L504.2610, L300.3900, L3200.1100, L3000.0375, L503.6030, L3890.6005, L501.6710, L3300.1200, L503.6550, L501.4700, L503.5510, L3130.0010, L506.1000, L3100.3425 ####[facility] [address] [facility] [place], [address] WSBXK-2-YRZF 0.9 g/dL Normal 0.4-1.0 [facility] Comment on above: Order Comment: Test( s) 531168-Hunrzw, Serum or Plasmawas developed and its performance characteristicsdetermined by [facility]. It has not been cleared or approvedby the Food and Drug Administration.NNN Performed By: #### L 3300.0100, L3400.0700, L3100.5450, L501.9520, L506.0400, L803.2200, L100.0100, L500.4050, L3300.0700, L500.4100, L800.1280, L3410.2400, L501.9985, L3100.1850, L504.2610, L300.3900, L3200.1100, L3000.0375, L503.6030, L3890.6005, L501.6710, L3300.1200, L503.6550, L501.4700, L503.5510, L3130.0010, L506.1000, L3100.3425 ####[facility] [address] [facility]. [place], [place], [id number] BETA GLOBULIN 1.0 g/dL Normal 0.7-1.3 [facility] Comment on above: Order Comment: Test( s) 298529-Ioqzpr, Serum or Plasmawas developed and its performance characteristicsdetermined by [facility]. It has not been cleared or approvedby the Food and Drug Administration.NNN Performed By: #### L 3300.0100, L3400.0700, L3100.5450, L501.9520, L506.0400, L803.2200, L100.0100, L500.4050, L3300.0700, L500.4100, L800.1280, L3410.2400, L501.9985, L3100.1850, L504.2610, L300.3900, L3200.1100, L3000.0375, L503.6030, L3890.6005, L501.6710, L3300.1200, L503.6550, L501.4700, L503.5510, L3130.0010, L506.1000, L3100.3425 ####[facility] [address] [facility] [place], [address] GAMMA GLOBULIN 2.7 g/dL High 0.4-1.8 [facility] Comment on above: Order Comment: Test( s) 834286-Fuvsxw, Serum or Plasmawas developed and its performance characteristicsdetermined by [employer]. It has not been cleared or approvedby the Food and Drug Administration.NNN Performed By: #### L 3300.0100, L3400.0700, L3100.5450, L501.9520, L506.0400, L803.2200, L100.0100, L500.4050, L3300.0700, L500.4100, L800.1280, L3410.2400, L501.9985, L3100.1850, L504.2610, L300.3900, L3200.1100, L3000.0375, L503.6030, L3890.6005, L501.6710, L3300.1200, L503.6550, L501.4700, L503.5510, L3130.0010, L506.1000, L3100.3425 ####[facility] [address] [place], [address] Globulin (S) [Mass/Vol] 4.9 g/dL Abnormal 2.2-3.9 [facility] Comment on above: Order Comment: Test( s) 129279-Nqcwvr, Serum or Plasmawas developed and its performance characteristicsdetermined by [employer]. It has not been cleared or approvedby the Food and Drug Administration.NNN Performed By: #### L 3300.0100, L3400.0700, L3100.5450, L501.9520, L506.0400, L803.2200, L100.0100, L500.4050, L3300.0700, L500.4100, L800.1280, L3410.2400, L501.9985, L3100.1850, L504.2610, L300.3900, L3200.1100, L3000.0375, L503.6030, L3890.6005, L501.6710, L3300.1200, L503.6550, L501.4700, L503.5510, L3130.0010, L506.1000, L3100.3425 ####[facility] [address] [place], [address] NITIN RESULT,S Comment Normal . [facility] Comment on above: Order Comment: Test( s) 784602-Iyqeor, Serum or Plasmawas developed and its performance characteristicsdetermined by [employer]. It has not been cleared or approvedby the Food and Drug Administration.NNN Result Comment: No m onoclonality detected. Performed By: #### L 3300.0100, L3400.0700, L3100.5450, L501.9520, L506.0400, L803.2200, L100.0100, L500.4050, L3300.0700, L500.4100, L800.1280, L3410.2400, L501.9985, L3100.1850, L504.2610, L300.3900, L3200.1100, L3000.0375, L503.6030, L3890.6005, L501.6710, L3300.1200, L503.6550, L501.4700, L503.5510, L3130.0010, L506.1000, L3100.3425 ####[facility] [address] [place], [place], [address] IMMUNOGLOB A QN < 5 Low 87-352 [facility] Comment on above: Order Comment: Test( s) 284434-Xioqdj, Serum or Plasmawas developed and its performance characteristicsdetermined by [employer]. It has not been cleared or approvedby the Food and Drug Administration.NNN Result Comment: Resu lt confirmed on concentration. Performed By: #### L 3300.0100, L3400.0700, L3100.5450, L501.9520, L506.0400, L803.2200, L100.0100, L500.4050, L3300.0700, L500.4100, L800.1280, L3410.2400, L501.9985, L3100.1850, L504.2610, L300.3900, L3200.1100, L3000.0375, L503.6030, L3890.6005, L501.6710, L3300.1200, L503.6550, L501.4700, L503.5510, L3130.0010, L506.1000, L3100.3425 ####[facility] [address] [place], [address] IMMUNOGLOB G QN 2914 mg/dL High 586-1602 [facility] Comment on above: Order Comment: Test( s) 743828-Ifpbln, Serum or Plasmawas developed and its performance characteristicsdetermined by [employer]. It has not been cleared or approvedby the Food and Drug Administration.NNN Performed By: #### L 3300.0100, L3400.0700, L3100.5450, L501.9520, L506.0400, L803.2200, L100.0100, L500.4050, L3300.0700, L500.4100, L800.1280, L3410.2400, L501.9985, L3100.1850, L504.2610, L300.3900, L3200.1100, L3000.0375, L503.6030, L3890.6005, L501.6710, L3300.1200, L503.6550, L501.4700, L503.5510, L3130.0010, L506.1000, L3100.3425 ####[facility] [address], [address] IMMUNOGLOB M QN 180 mg/dL Normal 26-217 [facility] Comment on above: Order Comment: Test( s) 607908-Hstmxf, Serum or Plasmawas developed and its performance characteristicsdetermined by [employer]. It has not been cleared or approvedby the Food and Drug Administration.NNN Performed By: #### L 3300.0100, L3400.0700, L3100.5450, L501.9520, L506.0400, L803.2200, L100.0100, L500.4050, L3300.0700, L500.4100, L800.1280, L3410.2400, L501.9985, L3100.1850, L504.2610, L300.3900, L3200.1100, L3000.0375, L503.6030, L3890.6005, L501.6710, L3300.1200, L503.6550, L501.4700, L503.5510, L3130.0010, L506.1000, L3100.3425 ####[facility] [address] [place], [place], [phone] M-Shadi Not Observed Normal Not Observed [facility] Comment on above: Order Comment: Test( s) 868312-Dblhhy, Serum or Plasmawas developed and its performance characteristicsdetermined by [employer]. It has not been cleared or approvedby the Food and Drug Administration.NNN Performed By: #### L 3300.0100, L3400.0700, L3100.5450, L501.9520, L506.0400, L803.2200, L100.0100, L500.4050, L3300.0700, L500.4100, L800.1280, L3410.2400, L501.9985, L3100.1850, L504.2610, L300.3900, L3200.1100, L3000.0375, L503.6030, L3890.6005, L501.6710, L3300.1200, L503.6550, L501.4700, L503.5510, L3130.0010, L506.1000, L3100.3425 ####[facility] [address] [facility]. [place], [place], [id number] NOTE: Comment Normal . [facility] Comment on above: Order Comment: Test( s) 649748-Zzbicl, Serum or Plasmawas developed and its performance characteristicsdetermined by [employer]. It has not been cleared or approvedby the Food and Drug Administration.NNN Result Comment: Prot ein electrophoresis scan will follow via computer,mail, or custom motorcycle painter delivery. Performed By: #### L 3300.0100, L3400.0700, L3100.5450, L501.9520, L506.0400, L803.2200, L100.0100, L500.4050, L3300.0700, L500.4100, L800.1280, L3410.2400, L501.9985, L3100.1850, L504.2610, L300.3900, L3200.1100, L3000.0375, L503.6030, L3890.6005, L501.6710, L3300.1200, L503.6550, L501.4700, L503.5510, L3130.0010, L506.1000, L3100.3425 ####[facility] [address] [place], [place], [phone] Protein [Mass/Vol] 8.1 g/dL Normal 6.0-8.5 [facility] Comment on above: Order Comment: Test( s) 850202-Xmdujw, Serum or Plasmawas developed and its performance characteristicsdetermined by [employer]. It has not been cleared or approvedby the Food and Drug Administration.NNN Performed By: #### L 3300.0100, L3400.0700, L3100.5450, L501.9520, L506.0400, L803.2200, L100.0100, L500.4050, L3300.0700, L500.4100, L800.1280, L3410.2400, L501.9985, L3100.1850, L504.2610, L300.3900, L3200.1100, L3000.0375, L503.6030, L3890.6005, L501.6710, L3300.1200, L503.6550, L501.4700, L503.5510, L3130.0010, L506.1000, L3100.3425 ####[facility] [address] [facility] [address] [place], [place], [id number] Immunoglobulins G/A/M/Logan IMMUNOGLOB E QN 4 IU/mL Low 6-495 [facility] Comment on above: Order Comment: Test( s) 026592-Fbfgcm, Serum or Plasmawas developed and its performance characteristicsdetermined by [employer]. It has not been cleared or approvedby the Food and Drug Administration.NNN Performed By: #### L 3300.0100, L3400.0700, L3100.5450, L501.9520, L506.0400, L803.2200, L100.0100, L500.4050, L3300.0700, L500.4100, L800.1280, L3410.2400, L501.9985, L3100.1850, L504.2610, L300.3900, L3200.1100, L3000.0375, L503.6030, L3890.6005, L501.6710, L3300.1200, L503.6550, L501.4700, L503.5510, L3130.0010, L506.1000, L3100.3425 ####[facility] [address] [facility]. [place], [place], [phone] [place] Lambda Light Chainson 05-14-2024 FR KAPPA LT CHN 98.4 mg/L Abnormal 3.3-19.4 [facility] Comment on above: Order Comment: Test( s) 518954-Zqddgh, Serum or Plasmawas developed and its performance characteristicsdetermined by [employer]. It has not been cleared or approvedby the Food and Drug Administration.NNN Performed By: #### L 3300.0100, L3400.0700, L3100.5450, L501.9520, L506.0400, L803.2200, L100.0100, L500.4050, L3300.0700, L500.4100, L800.1280, L3410.2400, L501.9985, L3100.1850, L504.2610, L300.3900, L3200.1100, L3000.0375, L503.6030, L3890.6005, L501.6710, L3300.1200, L503.6550, L501.4700, L503.5510, L3130.0010, L506.1000, L3100.3425 ####[facility] [address] [place], [address] FR LAMBDA LT CH 61.7 mg/L Abnormal 5.7-26.3 [facility] Comment on above: Order Comment: Test( s) 361980-Fnudiy, Serum or Plasmawas developed and its performance characteristicsdetermined by [employer]. It has not been cleared or approvedby the Food and Drug Administration.NNN Performed By: #### L 3300.0100, L3400.0700, L3100.5450, L501.9520, L506.0400, L803.2200, L100.0100, L500.4050, L3300.0700, L500.4100, L800.1280, L3410.2400, L501.9985, L3100.1850, L504.2610, L300.3900, L3200.1100, L3000.0375, L503.6030, L3890.6005, L501.6710, L3300.1200, L503.6550, L501.4700, L503.5510, L3130.0010, L506.1000, L3100.3425 ####[facility] [address] [place], [address] KAPPA/LAMBDA % 1.59 Normal 0.26-1.65 [facility] Comment on above: Order Comment: Test( s) 040639-Kgodsw, Serum or Plasmawas developed and its performance characteristicsdetermined by [employer]. It has not been cleared or approvedby the Food and Drug Administration.NNN Performed By: #### L 3300.0100, L3400.0700, L3100.5450, L501.9520, L506.0400, L803.2200, L100.0100, L500.4050, L3300.0700, L500.4100, L800.1280, L3410.2400, L501.9985, L3100.1850, L504.2610, L300.3900, L3200.1100, L3000.0375, L503.6030, L3890.6005, L501.6710, L3300.1200, L503.6550, L501.4700, L503.5510, L3130.0010, L506.1000, L3100.3425 ####[facility] [address] [place], [address] Gastroenterology Visit Repor ton 05-12-2024 Gastroenterology Visit Report Normal [facility] .GFRon 05-11-2024 GFR Non- 61 ml/min/1.73sqm Normal [facility] Comment on above: Result Comment: GFR [...] 15 mL/min/1.73 square meters Performed By: #### P BNP #### [address] [address] GFR 73 ml/min/1.73sqm Normal [facility] Comment on above: Result Comment: GFR [...] 15 mL/min/1.73 square meters Performed By: #### P BNP #### [address] [address] JOSTIN w/ Reflex Mult Confirmon 05-11-2024 JOSTIN TABLE TNP Normal [facility] Comment on above: Performed By: #### L 3300.0100, L3400.0700, L3100.5450, L501.9520, L506.0400, L803.2200, L100.0100, L500.4050, L3300.0700, L500.4100, L800.1280, L3410.2400, L501.9985, L3100.1850, L504.2610, L300.3900, L3200.1100, L3000.0375, L503.6030, L3890.6005, L501.6710, L3300.1200, L503.6550, L501.4700, L503.5510, L3130.0010, L506.1000, L3100.3425 ####[facility] [address] [facility] [place], [address] ANTI-CENT B AB TNP Normal [facility] Comment on above: Performed By: #### L 3300.0100, L3400.0700, L3100.5450, L501.9520, L506.0400, L803.2200, L100.0100, L500.4050, L3300.0700, L500.4100, L800.1280, L3410.2400, L501.9985, L3100.1850, L504.2610, L300.3900, L3200.1100, L3000.0375, L503.6030, L3890.6005, L501.6710, L3300.1200, L503.6550, L501.4700, L503.5510, L3130.0010, L506.1000, L3100.3425 ####[facility] [address] [facility] [place], [address] ANTI-CHEYENNE-1 TNP Normal [facility] Comment on above: Performed By: #### L 3300.0100, L3400.0700, L3100.5450, L501.9520, L506.0400, L803.2200, L100.0100, L500.4050, L3300.0700, L500.4100, L800.1280, L3410.2400, L501.9985, L3100.1850, L504.2610, L300.3900, L3200.1100, L3000.0375, L503.6030, L3890.6005, L501.6710, L3300.1200, L503.6550, L501.4700, L503.5510, L3130.0010, L506.1000, L3100.3425 ####[facility] [address] [facility]. [place], [place], [id number] ANTISCLERODERM TNP Normal [facility] Comment on above: Performed By: #### L 3300.0100, L3400.0700, L3100.5450, L501.9520, L506.0400, L803.2200, L100.0100, L500.4050, L3300.0700, L500.4100, L800.1280, L3410.2400, L501.9985, L3100.1850, L504.2610, L300.3900, L3200.1100, L3000.0375, L503.6030, L3890.6005, L501.6710, L3300.1200, L503.6550, L501.4700, L503.5510, L3130.0010, L506.1000, L3100.3425 ####[facility] [address] [facility]. [place], [place], [id number] BASKET OPERATOR Ab TNP Normal [facility] Comment on above: Performed By: #### L 3300.0100, L3400.0700, L3100.5450, L501.9520, L506.0400, L803.2200, L100.0100, L500.4050, L3300.0700, L500.4100, L800.1280, L3410.2400, L501.9985, L3100.1850, L504.2610, L300.3900, L3200.1100, L3000.0375, L503.6030, L3890.6005, L501.6710, L3300.1200, L503.6550, L501.4700, L503.5510, L3130.0010, L506.1000, L3100.3425 ####[facility] [address] [facility]. [place], [place], [phone] WHEELER Ab TNP Normal [facility] Comment on above: Performed By: #### L 3300.0100, L3400.0700, L3100.5450, L501.9520, L506.0400, L803.2200, L100.0100, L500.4050, L3300.0700, L500.4100, L800.1280, L3410.2400, L501.9985, L3100.1850, L504.2610, L300.3900, L3200.1100, L3000.0375, L503.6030, L3890.6005, L501.6710, L3300.1200, L503.6550, L501.4700, L503.5510, L3130.0010, L506.1000, L3100.3425 ####[facility] [address] [facility]. [place], [place], [phone] ANTI-DNA (DS)AB TNP [facility] Comment on above: Performed By: #### L 3300.0100, L3400.0700, L3100.5450, L501.9520, L506.0400, L803.2200, L100.0100, L500.4050, L3300.0700, L500.4100, L800.1280, L3410.2400, L501.9985, L3100.1850, L504.2610, L300.3900, L3200.1100, L3000.0375, L503.6030, L3890.6005, L501.6710, L3300.1200, L503.6550, L501.4700, L503.5510, L3130.0010, L506.1000, L3100.3425 ####[facility] [address] [place], [address] ANTI-SS-A TNP Normal [facility] Comment on above: Performed By: #### L 3300.0100, L3400.0700, L3100.5450, L501.9520, L506.0400, L803.2200, L100.0100, L500.4050, L3300.0700, L500.4100, L800.1280, L3410.2400, L501.9985, L3100.1850, L504.2610, L300.3900, L3200.1100, L3000.0375, L503.6030, L3890.6005, L501.6710, L3300.1200, L503.6550, L501.4700, L503.5510, L3130.0010, L506.1000, L3100.3425 ####[facility] [address] [place], [address] ANTI-SS-B TNP Normal [facility] Comment on above: Performed By: #### L 3300.0100, L3400.0700, L3100.5450, L501.9520, L506.0400, L803.2200, L100.0100, L500.4050, L3300.0700, L500.4100, L800.1280, L3410.2400, L501.9985, L3100.1850, L504.2610, L300.3900, L3200.1100, L3000.0375, L503.6030, L3890.6005, L501.6710, L3300.1200, L503.6550, L501.4700, L503.5510, L3130.0010, L506.1000, L3100.3425 ####[facility] [address] [place], [address] ANTICHROMATIN TNP Normal [facility] Comment on above: Performed By: #### L 3300.0100, L3400.0700, L3100.5450, L501.9520, L506.0400, L803.2200, L100.0100, L500.4050, L3300.0700, L500.4100, L800.1280, L3410.2400, L501.9985, L3100.1850, L504.2610, L300.3900, L3200.1100, L3000.0375, L503.6030, L3890.6005, L501.6710, L3300.1200, L503.6550, L501.4700, L503.5510, L3130.0010, L506.1000, L3100.3425 ####[facility] [address] [place], [place], [phone] Anti-Mitochondrial ABon 10-2 ANTIMITOCHON AB <20.0 Normal 0.0-20.0 [facility] Comment on above: Result Comment: Nega tive 0.0 - 20.0 Equivocal 20.1 - 24.9 Positive >24.9Mitochondrial (M2) Antibodies are found in 90-96% ofpatients with primary biliary cirrhosis. Performed By: #### L 3300.0100, L3400.0700, L3100.5450, L501.9520, L506.0400, L803.2200, L100.0100, L500.4050, L3300.0700, L500.4100, L800.1280, L3410.2400, L501.9985, L3100.1850, L504.2610, L300.3900, L3200.1100, L3000.0375, L503.6030, L3890.6005, L501.6710, L3300.1200, L503.6550, L501.4700, L503.5510, L3130.0010, L506.1000, L3100.3425 ####[facility] [address] [facility]. [place], [place], [id number] CMPon 05-11-2024 Albumin Level 3.5 G/dL Normal 3.5-5.0 [facility] Comment on above: Performed By: #### C TPCR, NGPCR1 #### [place] [id number] Albumin/Globulin [Mass ratio] 0.7 {ratio} Low 1.1-2.5 [facility] Comment on above: Performed By: #### C TPCR, NGPCR1 #### [place] [address] ALP [Catalytic activity/Vol] 180 U/L High 40-135 [facility] Comment on above: Performed By: #### C TPCR, NGPCR1 #### [place] [address] ALT [Catalytic activity/Vol] 34 U/L Normal 14-59 [facility] Comment on above: Performed By: #### C TPCR, NGPCR1 #### [place] [address] AST [Catalytic activity/Vol] 36 U/L Normal 10-40 [facility] Comment on above: Performed By: #### C TPCR, NGPCR1 #### [place] [address] Bili Total 0.5 mg/dL Normal 0.2-1.0 [facility] Comment on above: Result Comment: Use of this assay is not recommended for patients undergoing treatment with eltrombopag due to the potential for falsely elevated results. Performed By: #### C TPCR, NGPCR1 #### [place] [address] BUN/Creatinine Ratio 17 ratio Normal 7-27 [facility] Comment on above: Performed By: #### C TPCR, NGPCR1 #### [place] [address] Calcium [Mass/Vol] 9.4 mg/dL Normal 8.4-10.2 [facility] Comment on above: Performed By: #### C TPCR, NGPCR1 #### [address] [address] Chloride [Moles/Vol] 96 mmol/L Low 98-107 [facility] Comment on above: Performed By: #### C TPCR, NGPCR1 #### [address] [address] CO2 [Moles/Vol] 34 mmol/L High 22-29 [facility] Comment on above: Performed By: #### C TPCR, NGPCR1 #### [address] [address] Creatinine [Mass/Vol] 0.95 mg/dL Normal 0.55-1.02 [facility] Comment on above: Result Comment: Test ing performed on Team [employer] Dimension EXL analyzer using a modified kinetic Avila technique. Performed By: #### C TPCR, NGPCR1 #### [address] [address] Electrolyte Balance 6.0 mEq/L Normal 4.0-15.0 [facility] Comment on above: Performed By: #### C TPCR, NGPCR1 #### [address] [address] Globulin 5.2 G/dL Normal [facility] Comment on above: Performed By: #### C TPCR, NGPCR1 #### [address] [address] Glucose [Mass/Vol] 157 mg/dL High 70-105 [facility] Comment on above: Performed By: #### C TPCR, NGPCR1 #### [address] [address] Potassium [Moles/Vol] 4.8 mmol/L Normal 3.5-5.1 [facility] Comment on above: Performed By: #### C TPCR, NGPCR1 #### [address] [address] Sodium [Moles/Vol] 136 mmol/L Normal 136-145 [facility] Comment on above: Performed By: #### C TPCR, NGPCR1 #### [address] [place] [address] Total Protein 8.7 G/dL High 6.4-8.2 [facility] Comment on above: Performed By: #### C TPCR, NGPCR1 #### [facility] [address] [place] [address] Urea nitrogen [Mass/Vol] 16 mg/dL Normal 7-18 [facility] Comment on above: Performed By: #### C TPCR, NGPCR1 #### [facility] [address] [place] [address] HIV - WCHon 05-11-2024 HIV Non-Reactive Normal Nonreactive [facility] Comment on above: Performed By: #### L 3300.0100, L3400.0700, L3100.5450, L501.9520, L506.0400, L803.2200, L100.0100, L500.4050, L3300.0700, L500.4100, L800.1280, L3410.2400, L501.9985, L3100.1850, L504.2610, L300.3900, L3200.1100, L3000.0375, L503.6030, L3890.6005, L501.6710, L3300.1200, L503.6550, L501.4700, L503.5510, L3130.0010, L506.1000, L3100.3425 ####[facility] [address] [place], [place], [address] LABORATORYOrdered By: SYSTEM SYSTEM on 05-11-2024 Albumin [...] 05-11-2024 Cholesterol [Mass/Vol] 191 mg/dL Normal 0-200 [facility] Comment on above: Result Comment: Chol esterol Reference Interval: Less than 200 Desirable 200-239 Borderline high risk 240 and above High risk Performed By: #### P BNP #### [address] [address] Cholesterol in HDL [Mass/Vol] 38 mg/dL Low 40-60 [facility] Comment on above: Performed By: #### P BNP #### [place] [address] [place], [place] [address] Cholesterol in LDL [Mass/Vol] 91 mg/dL Normal 0-130 [facility] Comment on above: Performed By: #### P BNP #### [place] [address] [place], [place] [address] Triglyceride [Mass/Vol] 311 mg/dL High 0-150 [facility] Comment on above: Result Comment: Trig lyceride Reference Interval: Less than 150 Normal 150-199 Borderline high risk 200-499 High risk 500 or higher Very high risk Performed By: #### P BNP #### [place] [address] [place], [place] [address] Vitamin D,25 Hydroxyon 05-11 Vitamin D 25-OH 11.2 ng/mL Normal [facility] Comment on above: Result Comment: Jessica min D 25(OH) Status Range Deficiency <20 ng/mL (50nmol/L) Insufficiency 20 - 30 ng/mL (50 - 75 nmol/L) Sufficiency 30 - 100 ng/mL (75 - 250 nmol/L) Toxicity >100 ng/mL (>250 nmol/L) Performed By: #### L 3300.0100, L3400.0700, L3100.5450, L501.9520, L506.0400, L803.2200, L100.0100, L500.4050, L3300.0700, L500.4100, L800.1280, L3410.2400, L501.9985, L3100.1850, L504.2610, L300.3900, L3200.1100, L3000.0375, L503.6030, L3890.6005, L501.6710, L3300.1200, L503.6550, L501.4700, L503.5510, L3130.0010, L506.1000, L3100.3425 ####[facility] [address] [place], [place], [id number] Ammoniaon 05-09-2024 Ammonia (P) [Moles/Vol] 23.0 umol/L Normal 11-32 [facility] Comment on above: Performed By: #### L 3300.0100, L3400.0700, L3100.5450, L501.9520, L506.0400, L803.2200, L100.0100, L500.4050, L3300.0700, L500.4100, L800.1280, L3410.2400, L501.9985, L3100.1850, L504.2610, L300.3900, L3200.1100, L3000.0375, L503.6030, L3890.6005, L501.6710, L3300.1200, L503.6550, L501.4700, L503.5510, L3130.0010, L506.1000, L3100.3425 ####[facility] [address] [place], [place], [id number] Bilirubin, Directon 05-09-20 Bilirubin.direct [Mass/Vol] 0.10 mg/dL Normal 0.00-0.30 [facility] Comment on above: Order Comment: N1 Performed By: #### L 3300.0100, L3400.0700, L3100.5450, L501.9520, L506.0400, L803.2200, L100.0100, L500.4050, L3300.0700, L500.4100, L800.1280, L3410.2400, L501.9985, L3100.1850, L504.2610, L300.3900, L3200.1100, L3000.0375, L503.6030, L3890.6005, L501.6710, L3300.1200, L503.6550, L501.4700, L503.5510, L3130.0010, L506.1000, L3100.3425 ####[facility] [address] [place], [address] CBC W/Diff, Automatedon 10- Absolute Lymph 2.80 X10 3/uL Normal 0.83-4.51 [facility] Comment on above: Performed By: #### L 3300.0100, L3400.0700, L3100.5450, L501.9520, L506.0400, L803.2200, L100.0100, L500.4050, L3300.0700, L500.4100, L800.1280, L3410.2400, L501.9985, L3100.1850, L504.2610, L300.3900, L3200.1100, L3000.0375, L503.6030, L3890.6005, L501.6710, L3300.1200, L503.6550, L501.4700, L503.5510, L3130.0010, L506.1000, L3100.3425 ####[facility] [address] [place], [place], [id number] Absolute Neut 5.4 X10 3/uL Normal 2.0-7.7 [facility] Comment on above: Performed By: #### L 3300.0100, L3400.0700, L3100.5450, L501.9520, L506.0400, L803.2200, L100.0100, L500.4050, L3300.0700, L500.4100, L800.1280, L3410.2400, L501.9985, L3100.1850, L504.2610, L300.3900, L3200.1100, L3000.0375, L503.6030, L3890.6005, L501.6710, L3300.1200, L503.6550, L501.4700, L503.5510, L3130.0010, L506.1000, L3100.3425 ####[facility] [address] [place], [place], [id number] Basophils/100 WBC (Bld) 0.9 % Normal 0-1 [facility] Comment on above: Performed By: #### L 3300.0100, L3400.0700, L3100.5450, L501.9520, L506.0400, L803.2200, L100.0100, L500.4050, L3300.0700, L500.4100, L800.1280, L3410.2400, L501.9985, L3100.1850, L504.2610, L300.3900, L3200.1100, L3000.0375, L503.6030, L3890.6005, L501.6710, L3300.1200, L503.6550, L501.4700, L503.5510, L3130.0010, L506.1000, L3100.3425 ####[facility] [address] [facility] [place], [place], [id number] Eosinophils/100 WBC (Bld) 3.3 % Normal 0-5 [facility] Comment on above: Performed By: #### L 3300.0100, L3400.0700, L3100.5450, L501.9520, L506.0400, L803.2200, L100.0100, L500.4050, L3300.0700, L500.4100, L800.1280, L3410.2400, L501.9985, L3100.1850, L504.2610, L300.3900, L3200.1100, L3000.0375, L503.6030, L3890.6005, L501.6710, L3300.1200, L503.6550, L501.4700, L503.5510, L3130.0010, L506.1000, L3100.3425 ####[facility] [address] [facility] [place], [address] Erythrocyte distribution width (RBC) [Ratio] 15.3 % High 11.6-14.6 [facility] Comment on above: Performed By: #### L 3300.0100, L3400.0700, L3100.5450, L501.9520, L506.0400, L803.2200, L100.0100, L500.4050, L3300.0700, L500.4100, L800.1280, L3410.2400, L501.9985, L3100.1850, L504.2610, L300.3900, L3200.1100, L3000.0375, L503.6030, L3890.6005, L501.6710, L3300.1200, L503.6550, L501.4700, L503.5510, L3130.0010, L506.1000, L3100.3425 ####[facility] [address] [facility]. [place], [place], [id number] Hematocrit (Bld) [Volume fraction] 37.6 % Normal 37-47 [facility] Comment on above: Performed By: #### L 3300.0100, L3400.0700, L3100.5450, L501.9520, L506.0400, L803.2200, L100.0100, L500.4050, L3300.0700, L500.4100, L800.1280, L3410.2400, L501.9985, L3100.1850, L504.2610, L300.3900, L3200.1100, L3000.0375, L503.6030, L3890.6005, L501.6710, L3300.1200, L503.6550, L501.4700, L503.5510, L3130.0010, L506.1000, L3100.3425 ####[facility] [address] [facility] [place], [place], [phone] Hemoglobin (Bld) [Mass/Vol] 11.2 g/dL Low 12.0-15.0 [facility] Comment on above: Performed By: #### L 3300.0100, L3400.0700, L3100.5450, L501.9520, L506.0400, L803.2200, L100.0100, L500.4050, L3300.0700, L500.4100, L800.1280, L3410.2400, L501.9985, L3100.1850, L504.2610, L300.3900, L3200.1100, L3000.0375, L503.6030, L3890.6005, L501.6710, L3300.1200, L503.6550, L501.4700, L503.5510, L3130.0010, L506.1000, L3100.3425 ####[facility] [address] [facility]. [place], [place], [id number] IG% 1.200 High 0.0-0.9 [facility] Comment on above: Result Comment: IG% - Immature Granulocytes (promyelocytes, myelocytes andmetamyelocytes) > 1% indicates that a LEFT SHIFT is Present. Performed By: #### L 3300.0100, L3400.0700, L3100.5450, L501.9520, L506.0400, L803.2200, L100.0100, L500.4050, L3300.0700, L500.4100, L800.1280, L3410.2400, L501.9985, L3100.1850, L504.2610, L300.3900, L3200.1100, L3000.0375, L503.6030, L3890.6005, L501.6710, L3300.1200, L503.6550, L501.4700, L503.5510, L3130.0010, L506.1000, L3100.3425 ####[facility] [address] [facility]. [place], [place], [phone] Lymphocytes/100 WBC (Bld) 30.9 % Normal 19-41 [facility] Comment on above: Performed By: #### L 3300.0100, L3400.0700, L3100.5450, L501.9520, L506.0400, L803.2200, L100.0100, L500.4050, L3300.0700, L500.4100, L800.1280, L3410.2400, L501.9985, L3100.1850, L504.2610, L300.3900, L3200.1100, L3000.0375, L503.6030, L3890.6005, L501.6710, L3300.1200, L503.6550, L501.4700, L503.5510, L3130.0010, L506.1000, L3100.3425 ####[facility] [address]im[address] [facility]. [place], [place], [id number] MCH (RBC) [Entitic mass] 24.8 pg Low 27.0-32.0 [facility] Comment on above: Performed By: #### L 3300.0100, L3400.0700, L3100.5450, L501.9520, L506.0400, L803.2200, L100.0100, L500.4050, L3300.0700, L500.4100, L800.1280, L3410.2400, L501.9985, L3100.1850, L504.2610, L300.3900, L3200.1100, L3000.0375, L503.6030, L3890.6005, L501.6710, L3300.1200, L503.6550, L501.4700, L503.5510, L3130.0010, L506.1000, L3100.3425 ####[facility] [address] [facility]. [place], [place], [address] MCHC (RBC) [Mass/Vol] 29.8 g/dL Low 32-36 [facility] Comment on above: Performed By: #### L 3300.0100, L3400.0700, L3100.5450, L501.9520, L506.0400, L803.2200, L100.0100, L500.4050, L3300.0700, L500.4100, L800.1280, L3410.2400, L501.9985, L3100.1850, L504.2610, L300.3900, L3200.1100, L3000.0375, L503.6030, L3890.6005, L501.6710, L3300.1200, L503.6550, L501.4700, L503.5510, L3130.0010, L506.1000, L3100.3425 ####[facility] [address] [place], [place], [phone] MCV (RBC) [Entitic vol] 83.2 fL Normal 81-99 [facility] Comment on above: Performed By: #### L 3300.0100, L3400.0700, L3100.5450, L501.9520, L506.0400, L803.2200, L100.0100, L500.4050, L3300.0700, L500.4100, L800.1280, L3410.2400, L501.9985, L3100.1850, L504.2610, L300.3900, L3200.1100, L3000.0375, L503.6030, L3890.6005, L501.6710, L3300.1200, L503.6550, L501.4700, L503.5510, L3130.0010, L506.1000, L3100.3425 ####[facility] Pxnrgsvois[address]87 [facility] [place], [address] Monocytes/100 WBC (Bld) 4.4 % Normal 0-10 [facility] Comment on above: Performed By: #### L 3300.0100, L3400.0700, L3100.5450, L501.9520, L506.0400, L803.2200, L100.0100, L500.4050, L3300.0700, L500.4100, L800.1280, L3410.2400, L501.9985, L3100.1850, L504.2610, L300.3900, L3200.1100, L3000.0375, L503.6030, L3890.6005, L501.6710, L3300.1200, L503.6550, L501.4700, L503.5510, L3130.0010, L506.1000, L3100.3425 ####[facility] M[address]tnxwrq8555 [facility] [place], [address] Neutrophils/100 WBC (Bld) 59.3 % Normal 47-70 [facility] Comment on above: Performed By: #### L 3300.0100, L3400.0700, L3100.5450, L501.9520, L506.0400, L803.2200, L100.0100, L500.4050, L3300.0700, L500.4100, L800.1280, L3410.2400, L501.9985, L3100.1850, L504.2610, L300.3900, L3200.1100, L3000.0375, L503.6030, L3890.6005, L501.6710, L3300.1200, L503.6550, L501.4700, L503.5510, L3130.0010, L506.1000, L3100.3425 ####[facility] O[address]rl[address]fwk8803 [facility]. [place], [place], [phone] Nucleated RBC (Bld) [#/Vol] 0 10*3/uL Normal 0-5 [facility] Comment on above: Performed By: #### L 3300.0100, L3400.0700, L3100.5450, L501.9520, L506.0400, L803.2200, L100.0100, L500.4050, L3300.0700, L500.4100, L800.1280, L3410.2400, L501.9985, L3100.1850, L504.2610, L300.3900, L3200.1100, L3000.0375, L503.6030, L3890.6005, L501.6710, L3300.1200, L503.6550, L501.4700, L503.5510, L3130.0010, L506.1000, L3100.3425 ####[facility] [address] [place], [place], [phone] Platelet mean volume (Bld) [Entitic vol] 10.2 fL Normal 6.2-12.0 [facility] Comment on above: Performed By: #### L 3300.0100, L3400.0700, L3100.5450, L501.9520, L506.0400, L803.2200, L100.0100, L500.4050, L3300.0700, L500.4100, L800.1280, L3410.2400, L501.9985, L3100.1850, L504.2610, L300.3900, L3200.1100, L3000.0375, L503.6030, L3890.6005, L501.6710, L3300.1200, L503.6550, L501.4700, L503.5510, L3130.0010, L506.1000, L3100.3425 ####[facility] [address] [place], [place], [address] Platelets (Bld) [#/Vol] 271 10*3/uL Normal 150-450 [facility] Comment on above: Performed By: #### L 3300.0100, L3400.0700, L3100.5450, L501.9520, L506.0400, L803.2200, L100.0100, L500.4050, L3300.0700, L500.4100, L800.1280, L3410.2400, L501.9985, L3100.1850, L504.2610, L300.3900, L3200.1100, L3000.0375, L503.6030, L3890.6005, L501.6710, L3300.1200, L503.6550, L501.4700, L503.5510, L3130.0010, L506.1000, L3100.3425 ####[facility] [address] [place], [address] RBC (Bld) [#/Vol] 4.52 10*6/uL Normal 4.2-5.4 [facility] Comment on above: Performed By: #### L 3300.0100, L3400.0700, L3100.5450, L501.9520, L506.0400, L803.2200, L100.0100, L500.4050, L3300.0700, L500.4100, L800.1280, L3410.2400, L501.9985, L3100.1850, L504.2610, L300.3900, L3200.1100, L3000.0375, L503.6030, L3890.6005, L501.6710, L3300.1200, L503.6550, L501.4700, L503.5510, L3130.0010, L506.1000, L3100.3425 ####[facility] [address] [place], [place], [phone] RDW SD 46.5 fl High 35.1-43.9 [facility] Comment on above: Performed By: #### L 3300.0100, L3400.0700, L3100.5450, L501.9520, L506.0400, L803.2200, L100.0100, L500.4050, L3300.0700, L500.4100, L800.1280, L3410.2400, L501.9985, L3100.1850, L504.2610, L300.3900, L3200.1100, L3000.0375, L503.6030, L3890.6005, L501.6710, L3300.1200, L503.6550, L501.4700, L503.5510, L3130.0010, L506.1000, L3100.3425 ####[facility] [address] [place], [place], [id number] WBC (Bld) [#/Vol] 9.1 10*3/uL Normal 4.4-11.0 [facility] Comment on above: Performed By: #### L 3300.0100, L3400.0700, L3100.5450, L501.9520, L506.0400, L803.2200, L100.0100, L500.4050, L3300.0700, L500.4100, L800.1280, L3410.2400, L501.9985, L3100.1850, L504.2610, L300.3900, L3200.1100, L3000.0375, L503.6030, L3890.6005, L501.6710, L3300.1200, L503.6550, L501.4700, L503.5510, L3130.0010, L506.1000, L3100.3425 ####[facility] [address] [facility] [place], [address] CRPon 05-09-2024 C-REACTIVE PROT 10.20 mg/L High 0.0-3.0 [facility] Comment on above: Order Comment: N1 Result Comment: C-Re active Protein (CRP) provides useful information for thediagnosis, therapy and monitoring of inflammatory processesand associated diseases. For the evaluation of Relative Riskfor Cardiovascular Disease, a High Sensitivity CRP (HSCRP)should be ordered. Performed By: #### L 3300.0100, L3400.0700, L3100.5450, L501.9520, L506.0400, L803.2200, L100.0100, L500.4050, L3300.0700, L500.4100, L800.1280, L3410.2400, L501.9985, L3100.1850, L504.2610, L300.3900, L3200.1100, L3000.0375, L503.6030, L3890.6005, L501.6710, L3300.1200, L503.6550, L501.4700, L503.5510, L3130.0010, L506.1000, L3100.3425 ####[facility] [address] [facility] [place], [address] Comprehensive Metabolic Prof ilon 05-09-2024 Albumin [Mass/Vol] 3.1 g/dL Low 3.2-5.0 [facility] Comment on above: Order Comment: N1 Performed By: #### L 3300.0100, L3400.0700, L3100.5450, L501.9520, L506.0400, L803.2200, L100.0100, L500.4050, L3300.0700, L500.4100, L800.1280, L3410.2400, L501.9985, L3100.1850, L504.2610, L300.3900, L3200.1100, L3000.0375, L503.6030, L3890.6005, L501.6710, L3300.1200, L503.6550, L501.4700, L503.5510, L3130.0010, L506.1000, L3100.3425 ####[facility] [address] [place], [address] Albumin/Globulin [Mass ratio] 0.6 {ratio} Low 0.9-2.4 [facility] Comment on above: Order Comment: N1 Performed By: #### L 3300.0100, L3400.0700, L3100.5450, L501.9520, L506.0400, L803.2200, L100.0100, L500.4050, L3300.0700, L500.4100, L800.1280, L3410.2400, L501.9985, L3100.1850, L504.2610, L300.3900, L3200.1100, L3000.0375, L503.6030, L3890.6005, L501.6710, L3300.1200, L503.6550, L501.4700, L503.5510, L3130.0010, L506.1000, L3100.3425 ####[facility] [address] [place], [address] ALK P 154 U/L High 45-117 [facility] Comment on above: Order Comment: N1 Performed By: #### L 3300.0100, L3400.0700, L3100.5450, L501.9520, L506.0400, L803.2200, L100.0100, L500.4050, L3300.0700, L500.4100, L800.1280, L3410.2400, L501.9985, L3100.1850, L504.2610, L300.3900, L3200.1100, L3000.0375, L503.6030, L3890.6005, L501.6710, L3300.1200, L503.6550, L501.4700, L503.5510, L3130.0010, L506.1000, L3100.3425 ####[facility] [address] [facility] [place], [address] ALT [Catalytic activity/Vol] 36 U/L Normal 13-56 [facility] Comment on above: Order Comment: N1 Performed By: #### L 3300.0100, L3400.0700, L3100.5450, L501.9520, L506.0400, L803.2200, L100.0100, L500.4050, L3300.0700, L500.4100, L800.1280, L3410.2400, L501.9985, L3100.1850, L504.2610, L300.3900, L3200.1100, L3000.0375, L503.6030, L3890.6005, L501.6710, L3300.1200, L503.6550, L501.4700, L503.5510, L3130.0010, L506.1000, L3100.3425 ####[facility] [address] [place], [place], [phone] AST [Catalytic activity/Vol] 41 U/L High 15-37 [facility] Comment on above: Order Comment: N1 Performed By: #### L 3300.0100, L3400.0700, L3100.5450, L501.9520, L506.0400, L803.2200, L100.0100, L500.4050, L3300.0700, L500.4100, L800.1280, L3410.2400, L501.9985, L3100.1850, L504.2610, L300.3900, L3200.1100, L3000.0375, L503.6030, L3890.6005, L501.6710, L3300.1200, L503.6550, L501.4700, L503.5510, L3130.0010, L506.1000, L3100.3425 ####[facility] M[address]un[address]pt5554 [facility]. [place], [place], [phone] Bilirubin [Mass/Vol] 0.40 mg/dL Normal 0.20-1.00 [facility] Comment on above: Order Comment: N1 Result Comment: For patients on eltrombopag therapy, use of Dimension [place] TBIL is not recommended. Performed By: #### L 3300.0100, L3400.0700, L3100.5450, L501.9520, L506.0400, L803.2200, L100.0100, L500.4050, L3300.0700, L500.4100, L800.1280, L3410.2400, L501.9985, L3100.1850, L504.2610, L300.3900, L3200.1100, L3000.0375, L503.6030, L3890.6005, L501.6710, L3300.1200, L503.6550, L501.4700, L503.5510, L3130.0010, L506.1000, L3100.3425 ####[facility] [address] [facility] [place], [address] BUN/CRE 25.7 RATIO High 10-20 [facility] Comment on above: Order Comment: N1 Performed By: #### L 3300.0100, L3400.0700, L3100.5450, L501.9520, L506.0400, L803.2200, L100.0100, L500.4050, L3300.0700, L500.4100, L800.1280, L3410.2400, L501.9985, L3100.1850, L504.2610, L300.3900, L3200.1100, L3000.0375, L503.6030, L3890.6005, L501.6710, L3300.1200, L503.6550, L501.4700, L503.5510, L3130.0010, L506.1000, L3100.3425 ####[facility] [address] [facility] [address] [place], [place], [id number] CA,Total 9.8 mg/dL Normal 8.5-10.1 [facility] Comment on above: Order Comment: N1 Performed By: #### L 3300.0100, L3400.0700, L3100.5450, L501.9520, L506.0400, L803.2200, L100.0100, L500.4050, L3300.0700, L500.4100, L800.1280, L3410.2400, L501.9985, L3100.1850, L504.2610, L300.3900, L3200.1100, L3000.0375, L503.6030, L3890.6005, L501.6710, L3300.1200, L503.6550, L501.4700, L503.5510, L3130.0010, L506.1000, L3100.3425 ####[facility] [address] [place], [place], [phone] Chloride [Moles/Vol] 100 mmol/L Normal 98-107 [facility] Comment on above: Order Comment: N1 Performed By: #### L 3300.0100, L3400.0700, L3100.5450, L501.9520, L506.0400, L803.2200, L100.0100, L500.4050, L3300.0700, L500.4100, L800.1280, L3410.2400, L501.9985, L3100.1850, L504.2610, L300.3900, L3200.1100, L3000.0375, L503.6030, L3890.6005, L501.6710, L3300.1200, L503.6550, L501.4700, L503.5510, L3130.0010, L506.1000, L3100.3425 ####[facility] [address] [facility]. [place], [place], [phone] CO2 [Moles/Vol] 30.0 mmol/L Normal 21.0-32.0 [facility] Comment on above: Order Comment: N1 Performed By: #### L 3300.0100, L3400.0700, L3100.5450, L501.9520, L506.0400, L803.2200, L100.0100, L500.4050, L3300.0700, L500.4100, L800.1280, L3410.2400, L501.9985, L3100.1850, L504.2610, L300.3900, L3200.1100, L3000.0375, L503.6030, L3890.6005, L501.6710, L3300.1200, L503.6550, L501.4700, L503.5510, L3130.0010, L506.1000, L3100.3425 ####[facility] [address]os[address] [facility]. [place], [place], [id number] Creatinine [Mass/Vol] 0.86 mg/dL Normal 0.55-1.02 [facility] Comment on above: Order Comment: N1 Result Comment: The validity of the calculated GFR GFRAA in patients over70 years has not been determined. Clinical correlation isessential. Performed By: #### L 3300.0100, L3400.0700, L3100.5450, L501.9520, L506.0400, L803.2200, L100.0100, L500.4050, L3300.0700, L500.4100, L800.1280, L3410.2400, L501.9985, L3100.1850, L504.2610, L300.3900, L3200.1100, L3000.0375, L503.6030, L3890.6005, L501.6710, L3300.1200, L503.6550, L501.4700, L503.5510, L3130.0010, L506.1000, L3100.3425 ####[facility] [address] [facility] [place], [place], [id number] EST GFR - AA 88 mL/min Normal >60 [facility] Comment on above: Order Comment: N1 Result Comment: Afri can Citizen [place] GFR Calc Performed By: #### L 3300.0100, L3400.0700, L3100.5450, L501.9520, L506.0400, L803.2200, L100.0100, L500.4050, L3300.0700, L500.4100, L800.1280, L3410.2400, L501.9985, L3100.1850, L504.2610, L300.3900, L3200.1100, L3000.0375, L503.6030, L3890.6005, L501.6710, L3300.1200, L503.6550, L501.4700, L503.5510, L3130.0010, L506.1000, L3100.3425 ####[facility] [address] [facility] [place], [place], [address] GAP 5 Normal 5-15 [facility] Comment on above: Order Comment: N1 Performed By: #### L 3300.0100, L3400.0700, L3100.5450, L501.9520, L506.0400, L803.2200, L100.0100, L500.4050, L3300.0700, L500.4100, L800.1280, L3410.2400, L501.9985, L3100.1850, L504.2610, L300.3900, L3200.1100, L3000.0375, L503.6030, L3890.6005, L501.6710, L3300.1200, L503.6550, L501.4700, L503.5510, L3130.0010, L506.1000, L3100.3425 ####[facility] [address], [address] GFR/1.73 sq M.predicted among non-blacks MDRD (S/P/Bld) [Vol rate/Area] 73 mL/min/{1.73_m2} Normal >60 [facility] Comment on above: Order Comment: N1 Result Comment: Non- GFR Calc Performed By: #### L 3300.0100, L3400.0700, L3100.5450, L501.9520, L506.0400, L803.2200, L100.0100, L500.4050, L3300.0700, L500.4100, L800.1280, L3410.2400, L501.9985, L3100.1850, L504.2610, L300.3900, L3200.1100, L3000.0375, L503.6030, L3890.6005, L501.6710, L3300.1200, L503.6550, L501.4700, L503.5510, L3130.0010, L506.1000, L3100.3425 ####[facility] [address] [place], [address] Globulin (S) [Mass/Vol] 5.6 g/dL High 2.2-4.2 [facility] Comment on above: Order Comment: N1 Performed By: #### L 3300.0100, L3400.0700, L3100.5450, L501.9520, L506.0400, L803.2200, L100.0100, L500.4050, L3300.0700, L500.4100, L800.1280, L3410.2400, L501.9985, L3100.1850, L504.2610, L300.3900, L3200.1100, L3000.0375, L503.6030, L3890.6005, L501.6710, L3300.1200, L503.6550, L501.4700, L503.5510, L3130.0010, L506.1000, L3100.3425 ####[facility] [address] [place], [place], [id number] Glucose [Mass/Vol] 239 mg/dL High 74-106 [facility] Comment on above: Order Comment: N1 Result Comment: Gluc ose result greater than or equal to 200 mg/dLsuggests DIABETES MELLITUS per A.D.A. criteria. Performed By: #### L 3300.0100, L3400.0700, L3100.5450, L501.9520, L506.0400, L803.2200, L100.0100, L500.4050, L3300.0700, L500.4100, L800.1280, L3410.2400, L501.9985, L3100.1850, L504.2610, L300.3900, L3200.1100, L3000.0375, L503.6030, L3890.6005, L501.6710, L3300.1200, L503.6550, L501.4700, L503.5510, L3130.0010, L506.1000, L3100.3425 ####[facility] [address] [place], [place], [address] Potassium [Moles/Vol] 4.5 mmol/L Normal 3.5-5.1 [facility] Comment on above: Order Comment: N1 Performed By: #### L 3300.0100, L3400.0700, L3100.5450, L501.9520, L506.0400, L803.2200, L100.0100, L500.4050, L3300.0700, L500.4100, L800.1280, L3410.2400, L501.9985, L3100.1850, L504.2610, L300.3900, L3200.1100, L3000.0375, L503.6030, L3890.6005, L501.6710, L3300.1200, L503.6550, L501.4700, L503.5510, L3130.0010, L506.1000, L3100.3425 ####[facility] [address] [facility] [place], [place], [id number] Sodium [Moles/Vol] 135 mmol/L Low 136-145 [facility] Comment on above: Order Comment: N1 Performed By: #### L 3300.0100, L3400.0700, L3100.5450, L501.9520, L506.0400, L803.2200, L100.0100, L500.4050, L3300.0700, L500.4100, L800.1280, L3410.2400, L501.9985, L3100.1850, L504.2610, L300.3900, L3200.1100, L3000.0375, L503.6030, L3890.6005, L501.6710, L3300.1200, L503.6550, L501.4700, L503.5510, L3130.0010, L506.1000, L3100.3425 ####[facility] [address] [facility]. [place], [place], [id number] T PROT 8.7 g/dL High 6.4-8.2 [facility] Comment on above: Order Comment: N1 Performed By: #### L 3300.0100, L3400.0700, L3100.5450, L501.9520, L506.0400, L803.2200, L100.0100, L500.4050, L3300.0700, L500.4100, L800.1280, L3410.2400, L501.9985, L3100.1850, L504.2610, L300.3900, L3200.1100, L3000.0375, L503.6030, L3890.6005, L501.6710, L3300.1200, L503.6550, L501.4700, L503.5510, L3130.0010, L506.1000, L3100.3425 ####[facility] [address]. [place], [place], [id number] Urea nitrogen [Mass/Vol] 22 mg/dL High 7-18 [facility] Comment on above: Order Comment: N1 Performed By: #### L 3300.0100, L3400.0700, L3100.5450, L501.9520, L506.0400, L803.2200, L100.0100, L500.4050, L3300.0700, L500.4100, L800.1280, L3410.2400, L501.9985, L3100.1850, L504.2610, L300.3900, L3200.1100, L3000.0375, L503.6030, L3890.6005, L501.6710, L3300.1200, L503.6550, L501.4700, L503.5510, L3130.0010, L506.1000, L3100.3425 ####[facility] [address] [place], [place], [address] Ferritinon 05-09-2024 Ferritin [Mass/Vol] 42 ng/mL Normal 8-252 [facility] Comment on above: Order Comment: N1 Performed By: #### L 3300.0100, L3400.0700, L3100.5450, L501.9520, L506.0400, L803.2200, L100.0100, L500.4050, L3300.0700, L500.4100, L800.1280, L3410.2400, L501.9985, L3100.1850, L504.2610, L300.3900, L3200.1100, L3000.0375, L503.6030, L3890.6005, L501.6710, L3300.1200, L503.6550, L501.4700, L503.5510, L3130.0010, L506.1000, L3100.3425 ####[facility] [address]. [place], [place], [id number] Hemoglobin A1con 05-09-2024 HbA1c (Bld) [Mass fraction] 7.2 % High 3.8-5.6 [facility] Comment on above: Result Comment: Norm al < 5.7 % Prediabetic 5.7 - 6.4 % Diabetic >or= 6.5 % Please note range changes. Performed By: #### L 3300.0100, L3400.0700, L3100.5450, L501.9520, L506.0400, L803.2200, L100.0100, L500.4050, L3300.0700, L500.4100, L800.1280, L3410.2400, L501.9985, L3100.1850, L504.2610, L300.3900, L3200.1100, L3000.0375, L503.6030, L3890.6005, L501.6710, L3300.1200, L503.6550, L501.4700, L503.5510, L3130.0010, L506.1000, L3100.3425 ####[facility] [address] [place], [place], [id number] Iron+Iron Binding Capacityon 05-09-2024 Iron [Mass/Vol] 40 ug/dL Low 50-170 [facility] Comment on above: Order Comment: N1 Performed By: #### L 3300.0100, L3400.0700, L3100.5450, L501.9520, L506.0400, L803.2200, L100.0100, L500.4050, L3300.0700, L500.4100, L800.1280, L3410.2400, L501.9985, L3100.1850, L504.2610, L300.3900, L3200.1100, L3000.0375, L503.6030, L3890.6005, L501.6710, L3300.1200, L503.6550, L501.4700, L503.5510, L3130.0010, L506.1000, L3100.3425 ####[facility] [address] [facility]. [place], [place], [id number] IRON SATURATION 11.6 Low 15.0-55.0 [facility] Comment on above: Order Comment: N1 Performed By: #### L 3300.0100, L3400.0700, L3100.5450, L501.9520, L506.0400, L803.2200, L100.0100, L500.4050, L3300.0700, L500.4100, L800.1280, L3410.2400, L501.9985, L3100.1850, L504.2610, L300.3900, L3200.1100, L3000.0375, L503.6030, L3890.6005, L501.6710, L3300.1200, L503.6550, L501.4700, L503.5510, L3130.0010, L506.1000, L3100.3425 ####[facility] [address] [facility]. [place], [place], [id number] TIBC 346 ug/dL Normal 250-450 [facility] Comment on above: Order Comment: N1 Performed By: #### L 3300.0100, L3400.0700, L3100.5450, L501.9520, L506.0400, L803.2200, L100.0100, L500.4050, L3300.0700, L500.4100, L800.1280, L3410.2400, L501.9985, L3100.1850, L504.2610, L300.3900, L3200.1100, L3000.0375, L503.6030, L3890.6005, L501.6710, L3300.1200, L503.6550, L501.4700, L503.5510, L3130.0010, L506.1000, L3100.3425 ####[facility] [address]. [place], [place], [id number] LDHon 05-09-2024 LDH 167 U/L Normal 84-246 [facility] Comment on above: Order Comment: N1 Performed By: #### L 3300.0100, L3400.0700, L3100.5450, L501.9520, L506.0400, L803.2200, L100.0100, L500.4050, L3300.0700, L500.4100, L800.1280, L3410.2400, L501.9985, L3100.1850, L504.2610, L300.3900, L3200.1100, L3000.0375, L503.6030, L3890.6005, L501.6710, L3300.1200, L503.6550, L501.4700, L503.5510, L3130.0010, L506.1000, L3100.3425 ####[facility] [address] [facility]. [place], [place], [id number] Lipid Profileon 05-09-2024 Cholesterol [Mass/Vol] 181 mg/dL Normal 200 [facility] Comment on above: Order Comment: N1 Result Comment: <200 mg/dL Desirable 200-240 mg/dL Borderline >240 mg/dL High Risk Performed By: #### L 3300.0100, L3400.0700, L3100.5450, L501.9520, L506.0400, L803.2200, L100.0100, L500.4050, L3300.0700, L500.4100, L800.1280, L3410.2400, L501.9985, L3100.1850, L504.2610, L300.3900, L3200.1100, L3000.0375, L503.6030, L3890.6005, L501.6710, L3300.1200, L503.6550, L501.4700, L503.5510, L3130.0010, L506.1000, L3100.3425 ####[facility] [address], [address] Cholesterol in HDL [Mass/Vol] 30 mg/dL Low [facility] Comment on above: Order Comment: N1 Result Comment: The drugs N-Acetylcysteine and Metamizole may falselydepress this assay. Reference Range HDL <40 mg/dL Low HDL Cholesterol HDL >or= 60 mg/dL High HDL Cholesterol Performed By: #### L 3300.0100, L3400.0700, L3100.5450, L501.9520, L506.0400, L803.2200, L100.0100, L500.4050, L3300.0700, L500.4100, L800.1280, L3410.2400, L501.9985, L3100.1850, L504.2610, L300.3900, L3200.1100, L3000.0375, L503.6030, L3890.6005, L501.6710, L3300.1200, L503.6550, L501.4700, L503.5510, L3130.0010, L506.1000, L3100.3425 ####[facility] [address] [facility] [place], [address] LDL TNP Normal 0-130 [facility] Comment on above: Order Comment: N1 Performed By: #### L 3300.0100, L3400.0700, L3100.5450, L501.9520, L506.0400, L803.2200, L100.0100, L500.4050, L3300.0700, L500.4100, L800.1280, L3410.2400, L501.9985, L3100.1850, L504.2610, L300.3900, L3200.1100, L3000.0375, L503.6030, L3890.6005, L501.6710, L3300.1200, L503.6550, L501.4700, L503.5510, L3130.0010, L506.1000, L3100.3425 ####[facility] [address], [address] Triglyceride [Mass/Vol] 526 mg/dL High [facility] Comment on above: Order Comment: N1 Result Comment: The drugs N-Acetylcysteine and Metamizole may falselydepress this assay.TRIGLYCERIDE IS GREATER THAN 400 mg/dL.LDL RESULT IS INVALID AND WILL NOT BE REPORTED.Serum Triglycerides Reference Interval Normal <150 mg/dL Borderline high 150 - 199 mg/dL High 200 - 499 mg/dL Very High > or = 500 mg/dL Performed By: #### L 3300.0100, L3400.0700, L3100.5450, L501.9520, L506.0400, L803.2200, L100.0100, L500.4050, L3300.0700, L500.4100, L800.1280, L3410.2400, L501.9985, L3100.1850, L504.2610, L300.3900, L3200.1100, L3000.0375, L503.6030, L3890.6005, L501.6710, L3300.1200, L503.6550, L501.4700, L503.5510, L3130.0010, L506.1000, L3100.3425 ####[facility] [address] [place], [address] VLDL TNP Normal 5-40 [facility] Comment on above: Order Comment: N1 Performed By: #### L 3300.0100, L3400.0700, L3100.5450, L501.9520, L506.0400, L803.2200, L100.0100, L500.4050, L3300.0700, L500.4100, L800.1280, L3410.2400, L501.9985, L3100.1850, L504.2610, L300.3900, L3200.1100, L3000.0375, L503.6030, L3890.6005, L501.6710, L3300.1200, L503.6550, L501.4700, L503.5510, L3130.0010, L506.1000, L3100.3425 ####[facility] [address] [facility]. [place], [place], [id number] Prothrombin Time w/INRon INR Coag (PPP) [Relative time] 1.0 {INR} Normal [facility] Comment on above: Performed By: #### L 3300.0100, L3400.0700, L3100.5450, L501.9520, L506.0400, L803.2200, L100.0100, L500.4050, L3300.0700, L500.4100, L800.1280, L3410.2400, L501.9985, L3100.1850, L504.2610, L300.3900, L3200.1100, L3000.0375, L503.6030, L3890.6005, L501.6710, L3300.1200, L503.6550, L501.4700, L503.5510, L3130.0010, L506.1000, L3100.3425 ####[facility] [address] [facility] [place], [address] PT Coag (PPP) [Time] 13.4 s Normal 11.7-14.9 [facility] Comment on above: Performed By: #### L 3300.0100, L3400.0700, L3100.5450, L501.9520, L506.0400, L803.2200, L100.0100, L500.4050, L3300.0700, L500.4100, L800.1280, L3410.2400, L501.9985, L3100.1850, L504.2610, L300.3900, L3200.1100, L3000.0375, L503.6030, L3890.6005, L501.6710, L3300.1200, L503.6550, L501.4700, L503.5510, L3130.0010, L506.1000, L3100.3425 ####[facility] [address], [address] T4 Free Directon 05-09-2024 T4 FREE DIRECT 0.78 ng/dL Normal 0.76-1.46 [facility] Comment on above: Order Comment: N1 Performed By: #### L 3300.0100, L3400.0700, L3100.5450, L501.9520, L506.0400, L803.2200, L100.0100, L500.4050, L3300.0700, L500.4100, L800.1280, L3410.2400, L501.9985, L3100.1850, L504.2610, L300.3900, L3200.1100, L3000.0375, L503.6030, L3890.6005, L501.6710, L3300.1200, L503.6550, L501.4700, L503.5510, L3130.0010, L506.1000, L3100.3425 ####[facility] [address] [facility] [place], [address] Thyroid Stim Hormone (TSH)on 05-09-2024 TSH 1.460 uIU/mL Normal 0.358-3.740 [facility] Comment on above: Order Comment: N1 Performed By: #### L 3300.0100, L3400.0700, L3100.5450, L501.9520, L506.0400, L803.2200, L100.0100, L500.4050, L3300.0700, L500.4100, L800.1280, L3410.2400, L501.9985, L3100.1850, L504.2610, L300.3900, L3200.1100, L3000.0375, L503.6030, L3890.6005, L501.6710, L3300.1200, L503.6550, L501.4700, L503.5510, L3130.0010, L506.1000, L3100.3425 ####[facility] [address] [place], [address] CBC AND ELECTRONIC DIFFon Basophils (Bld) [#/Vol] 0.08 10*3/uL 0.00 - 0.15 K/uL [facility] Basophils/100 WBC (Bld) 0.9 % [facility] Differential cell count method Nom (Bld) Electronic Differential [facility] Eosinophils (Bld) [#/Vol] 0.25 10*3/uL 0.00 - 0.42 K/uL [facility] Eosinophils/100 WBC (Bld) 2.8 % [facility] Erythrocyte distribution width (RBC) [Ratio] 15.1 % High 10.8 - 14.9 % [facility] Hematocrit (Bld) [Volume fraction] 36.4 % 34.9 - 44.3 % [facility] Hemoglobin (Bld) [Mass/Vol] 11.2 g/dL Low 11.4 - 15.2 g/dL [facility] Immature granulocytes (Bld) [#/Vol] 0.14 10*3/uL High NINF - 0.08 K/uL [facility] Immature granulocytes/100 WBC (Bld) 1.6 % [facility] Interpretation and review of laboratory results Abnormal [facility] Lymphocytes (Bld) [#/Vol] 2.88 10*3/uL 1.16 - 3.51 K/uL [facility] Lymphocytes/100 WBC (Bld) 32.5 % [facility] MCH (RBC) [Entitic mass] 25.1 pg Low 25.9 - 33.9 pg [facility] MCHC (RBC) [Mass/Vol] 30.8 g/dL Low 31.4 - 35.9 g/dL [facility] MCV (RBC) [Entitic vol] 81.4 fL 79.6 - 97.7 fL [facility] Monocytes (Bld) [#/Vol] 0.54 10*3/uL 0.22 - 0.87 K/uL [facility] Monocytes/100 WBC (Bld) 6.1 % [facility] Neutrophils (Bld) [#/Vol] 4.96 10*3/uL 1.64 - 7.28 K/uL [facility] Nucleated RBC/100 WBC (Bld) [Ratio] 0.0 % NINF [facility] Platelet mean volume (Bld) [Entitic vol] 10.3 fL 8.5 - 12.2 fL [facility] Platelets (Bld) [#/Vol] 282 10*3/uL 150 - 393 K/uL [facility] RBC (Bld) [#/Vol] 4.47 10*6/uL [facility] Segmented neutrophils/100 WBC (Bld) 56.1 % [facility] WBC (Bld) [#/Vol] 8.85 10*3/uL 3.99 - 11. 19 K/uL [facility] Basophils (Bld) [#/Vol] 0.08 10*3/uL Normal 0.00-0.15 [facility] Comment on above: Performed By: #### C MPN, LDO #### [facility] (DEFAULT) [address] [place] [address] Basophils/100 WBC (Bld) 0.9 % Normal [facility] Comment on above: Performed By: #### C MPN, LDO #### [facility] (DEFAULT) [address] [place] [address]216 DIFF STATUS Electronic Differential Normal [facility] Comment on above: Performed By: #### C MPN, LDO #### [facility] (DEFAULT) [address] [place] [address]31 Eosinophils (Bld) [#/Vol] 0.25 10*3/uL Normal 0.00-0.42 [facility] Comment on above: Performed By: #### C MPN, LDO #### [facility] (DEFAULT) [address] [place] [address] Eosinophils/100 WBC (Bld) 2.8 % Normal [facility] Comment on above: Performed By: #### C MPN, LDO #### [facility] (DEFAULT) [address] [place] [address] Hematocrit (Bld) [Volume fraction] 36.4 % Normal 34.9-44.3 [facility] Comment on above: Performed By: #### C MPN, LDO #### [facility] (DEFAULT) [address] [place] [address] Hemoglobin (Bld) [Mass/Vol] 11.2 g/dL Low 11.4-15.2 [facility] Comment on above: Performed By: #### C MPN, LDO #### [facility] (DEFAULT) [address] [place] [address]7627 Immature Grans % 1.6 % Normal [facility] Comment on above: Performed By: #### C MPN, LDO #### [facility] (DEFAULT) [address] [place] [address]40 Immature Grans Absolute 0.14 K/uL High <=0.08 [facility] Comment on above: Performed By: #### C MPN, LDO #### [facility] (DEFAULT) [address] [place] [address]674 Lymphocytes (Bld) [#/Vol] 2.88 10*3/uL Normal 1.16-3.51 [facility] Comment on above: Performed By: #### C MPN, LDO #### [facility] (DEFAULT) [address] [place] [address]123 Lymphocytes/100 WBC (Bld) 32.5 % Normal [facility] Comment on above: Performed By: #### C MPN, LDO #### [facility] (DEFAULT) [address] [place] [address] 14645 MCV (RBC) [Entitic vol] 81.4 fL Normal 79.6-97.7 [facility] Comment on above: Performed By: #### C MPN, LDO #### [facility] (DEFAULT) [address] [place] [address] 21091 Mean Cell Hgb 25.1 pg Low 25.9-33.9 [facility] Comment on above: Performed By: #### C MPN, LDO #### [facility] (DEFAULT) [address] [place] [address] 90153 Mean Cell Hgb Conc 30.8 g/dL Low 31.4-35.9 [facility] Comment on above: Performed By: #### C MPN, LDO #### [facility] (DEFAULT) [address] [place] [address] 35085 Monocytes (Bld) [#/Vol] 0.54 10*3/uL Normal 0.22-0.87 [facility] Comment on above: Performed By: #### C MPN, LDO #### [facility] (DEFAULT) [address] [address] Monocytes/100 WBC (Bld) 6.1 % Normal [facility] Comment on above: Performed By: #### C MPN, LDO #### [facility] (DEFAULT) [address] [address] Nucleated RBC 0.0 /100 WBC Normal <=0.2 [facility] Comment on above: Performed By: #### C MPN, LDO #### [facility] (DEFAULT) [address] [place] [address]289 Platelet mean volume (Bld) [Entitic vol] 10.3 fL Normal 8.5-12.2 [facility] Comment on above: Performed By: #### C MPN, LDO #### [facility] (DEFAULT) [address] [place] [address]2533 Platelets (Bld) [#/Vol] 282 10*3/uL Normal 150-393 [facility] Comment on above: Performed By: #### C MPN, LDO #### [facility] (DEFAULT) [address] [place] [address] 55413 RBC (Bld) [#/Vol] 4.47 10*6/uL Normal 3.91-5.04 [facility] Comment on above: Performed By: #### C MPN, LDO #### [facility] (DEFAULT) [address] [place] [address] 67423 RBC Distribution 15.1 % High 10.8-14.9 [facility] Comment on above: Performed By: #### C MPN, LDO #### [facility] (DEFAULT) [address] [place] [address] 57219 Segs + Bands Auto 56.1 % Normal [facility] Comment on above: Performed By: #### C MPN, LDO #### [facility] (DEFAULT) [address] [place] [address] 03529 Segs + Bands,Absolute Auto 4.96 K/uL Normal 1.64-7.28 [facility] Comment on above: Performed By: #### C MPN, LDO #### [facility] (DEFAULT) [address] [place] [address] 72411 WBC (Bld) [#/Vol] 8.85 10*3/uL Normal 3.99-11.19 [facility] Comment on above: Performed By: #### C MPN, LDO #### [facility] (DEFAULT) [address] [place] [address] 43752 CHROMOGRANIN Aon 05-07-2024 Chromogranin A 946 ng/mL High <93 [facility] Comment on above: Result Comment: Impa ired renal or hepatic function or treatment with proton pump inhibitors may result in artifactual elevations of Chromogranin A. ADDITIONAL INFORMATION The testing method is a homogeneous time-resolved immunofluorescent assay manufactured by [employer] and performed on the BRAH[employer] Kryptor Compact Plus. Values obtained with different assay methods or kits may be different and cannot be used interchangeably. Test results cannot be interpreted as absolute evidence for the presence or absence of malignant disease. In some immunoassays, the presence of unusually high concentrations of analyte may result in a high-dose "hook" effect. This may result in a lower or even normal measured analyte concentration. If the reported result is inconsistent with the clinical presentation, the laboratory should be alerted for troubleshooting. For diagnostic purposes, these immunoassay results should always be assessed in conjunction with the patients medical history, clinical examination and other findings. Test Performed by: [facility] [address] [place] [address] [employer] Driver: Juana Recio Ph.D.; CLIA# [id number] Performed By: #### Y CHGRA #### [facility] (DEFAULT) [address] [place] [address] 11626 COMPREHENSIVE METABOLIC PANE [place] 05-07-2024 Albumin [Mass/Vol] 3.8 g/dL Normal 3.5-5.0 [facility] Comment on above: Performed By: #### C MPN, LDO #### [facility] (DEFAULT) [address] [place] [address] 07002 ALP [Catalytic activity/Vol] 125 U/L Normal 32-126 [facility] Comment on above: Performed By: #### C MPN, LDO #### [facility] (DEFAULT) [address] [place] [address] 03436 ALT [Catalytic activity/Vol] 21 U/L Normal 9-48 [facility] Comment on above: Performed By: #### C MPN, LDO #### [facility] (DEFAULT) [address] [place] [address] 00430 Anion gap [Moles/Vol] 8 mmol/L Normal 7-17 [facility] Comment on above: Performed By: #### C MPN, LDO #### [facility] (DEFAULT) [address] [place] [address] 08900 AST [Catalytic activity/Vol] 22 U/L Normal 10-39 [facility] Comment on above: Performed By: #### C MPN, LDO #### [facility] (DEFAULT) [address] [place] [address] 64953 Bilirubin [Mass/Vol] 0.5 mg/dL Normal <1.5 [facility] Comment on above: Performed By: #### C MPN, LDO #### [facility] (DEFAULT) [address] [place] [address] 32585 Calcium [Mass/Vol] 9.9 mg/dL Normal 8.6-10.5 [facility] Comment on above: Performed By: #### C MPN, LDO #### [facility] (DEFAULT) [address] [place] [address] 28181 Chloride [Moles/Vol] 99 mmol/L Normal 98-108 [facility] Comment on above: Performed By: #### C MPN, LDO #### [facility] (DEFAULT) [address] [place] [address] 41615 CO2 [Moles/Vol] 32 mmol/L High 21-31 [facility] Comment on above: Performed By: #### C MPN, LDO #### [facility] (DEFAULT) [address] [place] [address] 42937 Creatinine [Mass/Vol] 0.71 mg/dL Normal 0.50-1.20 [facility] Comment on above: Performed By: #### C MPN, LDO #### [facility] (DEFAULT) [address] [place] [address] 93204 eGFR, CKD-EPI, Female > Normal >=60 [facility] Comment on above: Result Comment: Repo rted eGFR is based on the CKD-EPI 2020 equation using creatinine, age, and sex. Performed By: #### C MPN, LDO #### [facility] (DEFAULT) [address] [place] [address] 19640 Glucose [Mass/Vol] 197 mg/dL High 70-99 [facility] Comment on above: Performed By: #### C MPN, LDO #### [facility] (DEFAULT) [address] [place] [address] 71079 Osmolality [Osmolality] 290 mosm/kg Normal 278-305 [facility] Comment on above: Performed By: #### C MPN, LDO #### [facility] (DEFAULT) [address] [place] [address] 03369 Potassium [Moles/Vol] 4.6 mmol/L Normal 3.5-5.0 [facility] Comment on above: Performed By: #### C MPN, LDO #### [facility] (DEFAULT) [address] [place] [address] 95002 Protein [Mass/Vol] 8.8 g/dL High 6.4-8.3 [facility] Comment on above: Performed By: #### C MPN, LDO #### [facility] (DEFAULT) [address] [place] [address] 29417 Sodium [Moles/Vol] 134 mmol/L Low 135-145 [facility] Comment on above: Performed By: #### C MPN, LDO #### [facility] (DEFAULT) [address] [place] [address] 55165 Urea nitrogen [Mass/Vol] 16 mg/dL Normal 7-25 [facility] Comment on above: Performed By: #### C MPN, LDO #### [facility] (DEFAULT) [address] [place] [address] 52761 Urea nitrogen/Creatinine [Mass ratio] 23 mg/mg Normal [facility] Comment on above: Performed By: #### C MPN, LDO #### [facility] (DEFAULT) [address] [place] [address] 30027 GASTRIN - NON-STIMULATEDon 1 Gastrin 591 pg/mL High [facility] Comment on above: Result Comment: REFERENCE VALUE <100 Reference ranges valid for >= 8 hour fast. Test Performed by: [facility] [address] [place] [address] [employer] Driver: Juana Recio Ph.D.; CLIA# [id number] Performed By: #### G STR #### [facility] (DEFAULT) [address] [place] [address] Laboratory - Chemistry and C hemistry - challengeon 05-07-2024 Albumin [Mass/Vol] 3.8 g/dL 3.5 - 5.0 g/dL [facility] ALP [Catalytic activity/Vol] 125 U/L 32 - 126 U/L [facility] ALT [Catalytic activity/Vol] 21 U/L 9 - 48 U/L [facility] Anion gap [Moles/Vol] 8 mmol/L 7 - 17 mmol/L [facility] AST [Catalytic activity/Vol] 22 U/L 10 - 39 U/L [facility] Bilirubin [Mass/Vol] 0.5 mg/dL NINF - 1.5 mg/dL [facility] Calcium [Mass/Vol] 9.9 mg/dL 8.6 - 10. 5 mg/dL [facility] Chloride [Moles/Vol] 99 mmol/L 98 - 10 8 mmol/L [facility] CO2 [Moles/Vol] 32 mmol/L High 21 - 31 mmol/L [facility] Creatinine [Mass/Vol] 0.71 mg/dL 0.50 - 1.20 mg/dL [facility] Glucose [Mass/Vol] 197 mg/dL High 70 - 99 mg/dL [facility] Osmolality Calc [Osmolality] [facility] Potassium [Moles/Vol] 4.6 mmol/L 3.5 - 5.0 mmol/L [facility] Protein [Mass/Vol] 8.8 g/dL High 6.4 - 8.3 g/dL [facility] Sodium [Moles/Vol] 134 mmol/L Low 135 - 145 mmol/L [facility] Urea nitrogen [Mass/Vol] 16 mg/dL 7 - 25 mg/dL [facility] Urea nitrogen/Creatinine [Mass ratio] 23 mg/mg [facility] No Panel Informationon 05-07 eGFR, CKD-EPI, Female - PINF [facility] Comment on above: Reported eGFR is bas ed on the CKD-EPI 2020 equation using creatinine, age, and sex. Interpretation and review of laboratory results Abnormal [facility] .GFRon 05-05-2024 GFR 95 ml/min/1.73sqm Normal [facility] Comment on above: Result Comment: GFR [...] mL/min/1.73 square meters Performed By: #### C TPCR, [id number] #### [place] [address] GFR Non- 78 ml/min/1.73sqm Normal [facility] Comment on above: Result Comment: GFR [...] mL/min/1.73 square meters Performed By: #### C TPCR, [id number] #### [place] [id number] CMPon 05-05-2024 Albumin Level 3.3 G/dL Low 3.5-5.0 [facility] Comment on above: Performed By: #### C TPCR, [id number] #### [place] [address] Albumin/Globulin [Mass ratio] 0.7 {ratio} Low 1.1-2.5 [facility] Comment on above: Performed By: #### C TPCR, [id number] #### [place] [id number] ALP [Catalytic activity/Vol] 172 U/L High 40-135 [facility] Comment on above: Performed By: #### C TPCR, [id number] #### [place] [address] ALT [Catalytic activity/Vol] 32 U/L Normal 14-59 [facility] Comment on above: Performed By: #### C TPCR, [id number] #### [place] [id number] AST [Catalytic activity/Vol] 26 U/L Normal 10-40 [facility] Comment on above: Performed By: #### C TPCR, NGPCR1 #### [place] [address] Bili Total 0.4 mg/dL Normal 0.2-1.0 [facility] Comment on above: Result Comment: Use of this assay is not recommended for patients undergoing treatment with eltrombopag due to the potential for falsely elevated results. Performed By: #### C TPCR, [email or web address] #### [place] [id number] BUN/Creatinine Ratio 22 ratio Normal 7-27 [facility] Comment on above: Performed By: #### C TPCR, NGPCR1 #### [place] [id number] Calcium [Mass/Vol] 9.4 mg/dL Normal 8.4-10.2 [facility] Comment on above: Performed By: #### C TPCR, NGPCR1 #### [address] [address] Chloride [Moles/Vol] 99 mmol/L Normal 98-107 [facility] Comment on above: Performed By: #### C TPCR, NGPCR1 #### [address] [address] CO2 [Moles/Vol] 32 mmol/L High 22-29 [facility] Comment on above: Performed By: #### C TPCR, NGPCR1 #### [address] [address] Creatinine [Mass/Vol] 0.76 mg/dL Normal 0.55-1.02 [facility] Comment on above: Result Comment: Test ing performed on Siemens Dimension EXL analyzer using a modified kinetic Avila technique. Performed By: #### C TPCR, NGPCR1 #### [address] [address] Electrolyte Balance 6.0 mEq/L Normal 4.0-15.0 [facility] Comment on above: Performed By: #### C TPCR, NGPCR1 #### [address] [address] Globulin 5.0 G/dL Normal [facility] Comment on above: Performed By: #### C TPCR, NGPCR1 #### [address] [address] Glucose [Mass/Vol] 198 mg/dL High 70-105 [facility] Comment on above: Performed By: #### C TPCR, NGPCR1 #### [address] [address] Potassium [Moles/Vol] 4.9 mmol/L Normal 3.5-5.1 [facility] Comment on above: Performed By: #### C TPCR, NGPCR1 #### [address] [address] Sodium [Moles/Vol] 137 mmol/L Normal 136-145 [facility] Comment on above: Performed By: #### C TPCR, NGPCR1 #### [address] [address] Total Protein 8.3 G/dL High 6.4-8.2 [facility] Comment on above: Performed By: #### C TPCR, NGPCR1 #### [address] [address] Urea nitrogen [Mass/Vol] 17 mg/dL Normal 7-18 [facility] Comment on above: Performed By: #### C TPCR, NGPCR1 #### [address] [address] DLDLon 05-05-2024 Direct LDL Cholesterol 74 mg/dL Normal 0-99 [facility] Comment on above: Result Comment: Dire ct LDL Cholesterol Reference Interval: Optimal: <100 mg/dL Near Optimal/above optimal: 100-129 mg/dL Borderline high: 130-159 mg/dL High: 160-189 mg/dL Very high: >=190 mg/dL Performed By: #### C TPCR, [email or web address] #### [address] [address] LABORATORYOrdered By: SYSTEM SYSTEM on 05-05-2024 Albumin [...] Normal 0 - 200 mg/dL AO ADM Comment on above: Interpretive Data: C holesterol [...] Interpretation Code 0 - 130 AO ADM Comment on above: Result Comment: Trig lyceride >400 invalidates the calculated LDL. Triglyceride [Mass/Vol] 429 mg/dL High 0 - 150 mg/dL AO ADM SS Comment on above: Interpretive Data: T riglyceride Reference Interval: Less than 150 Normal 150-199 Borderline high risk 200-499 High risk 500 or higher Very high risk LIPIDon 05-05-2024 Cholesterol [Mass/Vol] 169 mg/dL Normal 0-200 [facility] Comment on above: Result Comment: Chol esterol Reference Interval: Less than 200 Desirable 200-239 Borderline high risk 240 and above High risk Performed By: #### C TPCR, NGPCR1 #### [facility] [address] [place] [address] Cholesterol in HDL [Mass/Vol] 30 mg/dL Low 40-60 [facility] Comment on above: Performed By: #### C TPCR, NGPCR1 #### [facility] [address] [place] [address] LDL Cholesterol Not Valid Normal 0-130 [facility] Comment on above: Result Comment: Trig lyceride >400 invalidates the calculated LDL. Performed By: #### C TPCR, NGPCR1 #### [facility] [address] [place] [address] Triglyceride [Mass/Vol] 429 mg/dL High 0-150 [facility] Comment on above: Result Comment: Trig lyceride Reference Interval: Less than 150 Normal 150-199 Borderline high risk 200-499 High risk 500 or higher Very high risk Performed By: #### C TPCR, NGPCR1 #### [facility] [address] [place] [address] CBC W/Diff, Automatedon 03-23 SMEAR COMMENT SCANNED Normal [facility] Comment on above: Result Comment: AUTO DIFF OK Performed By: #### L 100.9950, L503.6550, L500.4050, L503.0105, L503.6030, L100.0100 ####[facility] [address] [place], [place], [id number] Comprehensive [facility] 04-[facility]-2024 Albumin [Mass/Vol] 3.1 g/dL Low 3.2-5.0 [facility] Comment on above: Performed By: #### L 100.9950, L503.6550, L500.4050, L503.0105, L503.6030, L100.0100 ####[facility] [address] [place], [place], [id number] Albumin/Globulin [Mass ratio] 0.6 {ratio} Low 0.9-2.4 [facility] Comment on above: Performed By: #### L 100.9950, L503.6550, L500.4050, L503.0105, L503.6030, L100.0100 ####[facility] [address] [place], [address] ALK P 131 U/L High 45-117 [facility] Comment on above: Performed By: #### L 100.9950, L503.6550, L500.4050, L503.0105, L503.6030, L100.0100 ####[facility] [address] [place], [address] ALT [Catalytic activity/Vol] 25 U/L Normal 13-56 [facility] Comment on above: Performed By: #### L 100.9950, L503.6550, L500.4050, L503.0105, L503.6030, L100.0100 ####[facility] [address] [place], [address] AST [Catalytic activity/Vol] 31 U/L Normal 15-37 [facility] Comment on above: Performed By: #### L 100.9950, L503.6550, L500.4050, L503.0105, L503.6030, L100.0100 ####[facility] [address] [place], [address] Bilirubin [Mass/Vol] 0.70 mg/dL Normal 0.20-1.00 [facility] Comment on above: Result Comment: For patients on eltrombopag therapy, use of Dimension [place] TBIL is not recommended. Performed By: #### L 100.9950, L503.6550, L500.4050, L503.0105, L503.6030, L100.0100 ####[facility] [address] [place], [address] BUN/CRE 13.2 RATIO Normal 10-20 [facility] Comment on above: Performed By: #### L 100.9950, L503.6550, L500.4050, L503.0105, L503.6030, L100.0100 ####[facility] [address] [place], [address] CA,Total 9.2 mg/dL Normal 8.5-10.1 [facility] Comment on above: Performed By: #### L 100.9950, L503.6550, L500.4050, L503.0105, L503.6030, L100.0100 ####[facility] [address] [place], [address] Chloride [Moles/Vol] 101 mmol/L Normal 98-107 [facility] Comment on above: Performed By: #### L 100.9950, L503.6550, L500.4050, L503.0105, L503.6030, L100.0100 ####[facility] [address] [place], [address] CO2 [Moles/Vol] 32.0 mmol/L Normal 21.0-32.0 [facility] Comment on above: Performed By: #### L 100.9950, L503.6550, L500.4050, L503.0105, L503.6030, L100.0100 ####[facility] [address] [place], [address] Creatinine [Mass/Vol] 0.76 mg/dL Normal 0.55-1.02 [facility] Comment on above: Result Comment: The validity of the calculated GFR GFRAA in patients over70 years has not been determined. Clinical correlation isessential. Performed By: #### L 100.9950, L503.6550, L500.4050, L503.0105, L503.6030, L100.0100 ####[facility] [address] [place], [address] EST GFR - AA 102 mL/min Normal >60 [facility] Comment on above: Result Comment: Afri can Citizen [place] GFR Calc Performed By: #### L 100.9950, L503.6550, L500.4050, L503.0105, L503.6030, L100.0100 ####[facility] [address] [place], [address] GAP 4 Low 5-15 [facility] Comment on above: Performed By: #### L 100.9950, L503.6550, L500.4050, L503.0105, L503.6030, L100.0100 ####[facility] [address] [place], [address] GFR/1.73 sq M.predicted among non-blacks MDRD (S/P/Bld) [Vol rate/Area] 84 mL/min/{1.73_m2} Normal >60 [facility] Comment on above: Result Comment: Non- GFR Calc Performed By: #### L 100.9950, L503.6550, L500.4050, L503.0105, L503.6030, L100.0100 ####[facility] [address] [place], [address] Globulin (S) [Mass/Vol] 5.2 g/dL High 2.2-4.2 [facility] Comment on above: Performed By: #### L 100.9950, L503.6550, L500.4050, L503.0105, L503.6030, L100.0100 ####[facility] [address] [place], [address] Glucose [Mass/Vol] 140 mg/dL High 74-106 [facility] Comment on above: Result Comment: Fast ing Glucose result greater than or equal to 126 mg/dLsuggests DIABETES MELLITUS per A.D.A. criteria. Performed By: #### L 100.9950, L503.6550, L500.4050, L503.0105, L503.6030, L100.0100 ####[facility] [address] [place], [address] Potassium [Moles/Vol] 4.2 mmol/L Normal 3.5-5.1 [facility] Comment on above: Performed By: #### L 100.9950, L503.6550, L500.4050, L503.0105, L503.6030, L100.0100 ####[facility] [address] [place], [address] Sodium [Moles/Vol] 137 mmol/L Normal 136-145 [facility] Comment on above: Performed By: #### L 100.9950, L503.6550, L500.4050, L503.0105, L503.6030, L100.0100 ####[facility] [address] [place], [address] T PROT 8.3 g/dL High 6.4-8.2 [facility] Comment on above: Performed By: #### L 100.9950, L503.6550, L500.4050, L503.0105, L503.6030, L100.0100 ####[facility] [address] [place], [address] Urea nitrogen [Mass/Vol] 10 mg/dL Normal 7-18 [facility] Comment on above: Performed By: #### L 100.9950, L503.6550, L500.4050, L503.0105, L503.6030, L100.0100 ####[facility] [address] [place], [address] Ferritinon 04-16-2024 Ferritin [Mass/Vol] 40 ng/mL Normal 8-252 [facility] Comment on above: Performed By: #### L 100.9950, L503.6550, L500.4050, L503.0105, L503.6030, L100.0100 ####[facility] [address] [place], [address] Iron+Iron Binding Capacityon 04-16-2024 Iron [Mass/Vol] 32 ug/dL Low 50-170 [facility] Comment on above: Performed By: #### L 100.9950, L503.6550, L500.4050, L503.0105, L503.6030, L100.0100 ####[facility] [address] [place], [address] IRON SATURATION 9.3 Low 15.0-55.0 [facility] Comment on above: Performed By: #### L 100.9950, L503.6550, L500.4050, L503.0105, L503.6030, L100.0100 ####[facility] [address] [place], [address] TIBC 345 ug/dL Normal 250-450 [facility] Comment on above: Performed By: #### L 100.9950, L503.6550, L500.4050, L503.0105, L503.6030, L100.0100 ####[facility] [address] [place], [address] Oncology Visit Reporton 03-23 Oncology Visit Report Normal [facility] Orthopedic Visit Reporton Orthopedic Visit Report Normal [facility] Retic Panelon 04-16-2024 IM RET FRACTION 21.00 High 3.00-15.90 [facility] Comment on above: Performed By: #### L 100.9950, L503.6550, L500.4050, L503.0105, L503.6030, L100.0100 ####[facility] [address] [place], [address] RET-HE 24.6 pg Low 30-35 [facility] Comment on above: Performed By: #### L 100.9950, L503.6550, L500.4050, L503.0105, L503.6030, L100.0100 ####[facility] [address] [place], [address] Retic Count 4.20 High 0.5-1.5 [facility] Comment on above: Performed By: #### L 100.9950, L503.6550, L500.4050, L503.0105, L503.6030, L100.0100 ####[facility] [address], [address] Vitamin B12on 04-16-2024 Cobalamin (Vitamin B12) [Mass/Vol] 259 pg/mL Normal 211-911 [facility] Comment on above: Performed By: #### L 100.9950, L503.6550, L500.4050, L503.0105, L503.6030, L100.0100 ####[facility] [address], [address] Gastroenterology Visit Repor ton 04-14-2024 Gastroenterology Visit Report Normal [facility] .Auto Diffon 04-13-2024 Basophil, Absolute 0.0 10 3/mcL Normal 0.0-0.2 [facility] Comment on above: Performed By: #### C TPCR, NGPCR1 #### [facility] [address] [place] [address] Basophils/100 WBC (Bld) 0.5 % Normal 0.0-2.5 [facility] Comment on above: Performed By: #### C TPCR, NGPCR1 #### [facility] [address] [place] [address] Eosinophil, Absolute 0.1 10 3/mcL Normal 0.0-0.7 [facility] Comment on above: Performed By: #### C TPCR, NGPCR1 #### [facility] [address] [place] [address] Eosinophils/100 WBC (Bld) 1.7 % Normal 0.0-7.0 [facility] Comment on above: Performed By: #### C TPCR, NGPCR1 #### [address] [address] Lymphocyte, Absolute 1.9 10 3/mcL Normal 0.9-4.3 [facility] Comment on above: Performed By: #### C TPCR, NGPCR1 #### [address] [address] Lymphocytes/100 WBC (Bld) 24.9 % Normal 20.0-40.0 [facility] Comment on above: Performed By: #### C TPCR, NGPCR1 #### [address] [address] Monocyte, Absolute 0.4 10 3/mcL Normal 0.1-1.4 [facility] Comment on above: Performed By: #### C TPCR, NGPCR1 #### [address] [address] Monocytes/100 WBC (Bld) 5.4 % Normal 2.0-13.0 [facility] Comment on above: Performed By: #### C TPCR, NGPCR1 #### [address] [address] Neutrophils/100 WBC (Bld) 67.5 % Normal 50.0-75.0 [facility] Comment on above: Performed By: #### C TPCR, NGPCR1 #### [address] [address] .NEUABSon 04-13-2024 Neutrophil, Absolute 5.2 10 3/mcL Normal 2.3-8.1 [facility] Comment on above: Performed By: #### C TPCR, NGPCR1 #### [address] [address] CBCon 04-13-2024 Erythrocyte distribution width (RBC) [Ratio] 17.4 % High 11.5-15.5 [facility] Comment on above: Performed By: #### C TPCR, NGPCR1 #### [address] [address] Hematocrit (Bld) [Volume fraction] 31.6 % Low 34.0-46.0 [facility] Comment on above: Performed By: #### C TPCR, NGPCR1 #### [place] [address] Hgb 9.9 G/dL Low 12.0-16.0 [facility] Comment on above: Performed By: #### C TPCR, NGPCR1 #### [place] [address] MCH (RBC) [Entitic mass] 26.4 pg Low 27.0-33.0 [facility] Comment on above: Performed By: #### C TPCR, NGPCR1 #### [place] [address] MCHC 31.3 G/dL Low 32.0-36.0 [facility] Comment on above: Performed By: #### C TPCR, NGPCR1 #### [place] [address] MCV (RBC) [Entitic vol] 84.3 fL Normal 80.0-99.0 [facility] Comment on above: Performed By: #### C TPCR, NGPCR1 #### [place] [address] Platelet 284 10 3/mcL Normal 150-450 [facility] Comment on above: Performed By: #### C TPCR, NGPCR1 #### [place] [address] Platelet mean volume (Bld) [Entitic vol] 7.5 fL Normal 6.6-10.5 [facility] Comment on above: Performed By: #### C TPCR, NGPCR1 #### [place] [address] RBC 3.75 10 6/mcL Low 4.10-5.30 [facility] Comment on above: Performed By: #### C TPCR, NGPCR1 #### [place] [address] WBC 7.6 10 3/mcL Normal 4.5-10.8 [facility] Comment on above: Performed By: #### C TPCR, NGPCR1 #### [place] [address] LABORATORYOrdered By: SYSTEM SYSTEM on 04-13-2024 Natriuretic [...] B (Bld) [Mass/Vol] 211 pg/mL High 0-125 [facility] Comment on above: Result Comment: NT-p roBNP results of less than 300 pg/mL effectively rules out acute congestive heart failure with 99% negative predictive value. Performed By: #### P BNP #### [facility] [address] [place] [address] Bedside Glucoseon 04-07-2024 FINGERSTICK GLU 222 mg/dL High [address] [place] [address] Comment on above: Result Comment: ESPERANZA GEMENT OF PATIENT CARE PER NURSING PROTOCOL Performed By: #### L 501.080 ####[facility] [address] [place], [place], [address] FINGERSTICK GLU 237 mg/dL High 74[address] [place] [address] Comment on above: Result Comment: ESPERANZA GEMENT OF PATIENT CARE PER NURSING PROTOCOL Performed By: #### L 501.080 ####[facility] [address] [place], [place], [address] Discharge Instructionon 03-22 Discharge Instruction Normal [facility] Bedside Glucoseon 04-06-2024 FINGERSTICK GLU 252 mg/dL High [address] [place] [address] Comment on above: Result Comment: ESPERANZA GEMENT OF PATIENT CARE PER NURSING PROTOCOL Performed By: #### L 501.080 ####[facility] [address] [place], [address] FINGERSTICK GLU 216 mg/dL High 74-106 [facility] Comment on above: Result Comment: ESPERANZA GEMENT OF PATIENT CARE PER NURSING PROTOCOL Performed By: #### L 501.080 ####[facility] [address] [place], [address] FINGERSTICK GLU 285 mg/dL High 74-106 [facility] Comment on above: Result Comment: ESPERANZA GEMENT OF PATIENT CARE PER NURSING PROTOCOL Performed By: #### L 501.080 ####[facility] [address] [place], [address] FINGERSTICK GLU 219 mg/dL High 74-106 [facility] Comment on above: Result Comment: ESPERANZA GEMENT OF PATIENT CARE PER NURSING PROTOCOL Performed By: #### L 501.080 ####[facility] [address] [place], [address] CBC W/Diff, Automatedon 03-22 PATH REV Reviewed Normal [facility] Comment on above: Result Comment: Neut rophilic left shift.Normocytic anemia.Clinical correlation necessary.Nate Carolina M.D. 04/06/24 AMENDED REPORT 04/06/24923 PATH REV previously reported as: November Performed By: #### L 501.4020, L501.2450, L100.0100, L500.4050 ####[facility] [address] [place], [address] CBC-Complete Blood Cnt No Di ffon 04-06-2024 Erythrocyte distribution width (RBC) [Ratio] 19.0 % High 11.6-14.6 [facility] Comment on above: Performed By: #### L 100.0500 ####[facility] [address] [place], [address] Hematocrit (Bld) [Volume fraction] 29.1 % Low 37-47 [facility] Comment on above: Performed By: #### L 100.0500 ####[facility] [address] [place], [address] Hemoglobin (Bld) [Mass/Vol] 8.7 g/dL Low 12.0-15.0 [facility] Comment on above: Performed By: #### L 100.0500 ####[facility] [address] [place], [address] MCH (RBC) [Entitic mass] 27.0 pg Normal 27.0-32.0 [facility] Comment on above: Performed By: #### L 100.0500 ####[facility] [address] [place], [address] MCHC (RBC) [Mass/Vol] 29.9 g/dL Low 32-36 [facility] Comment on above: Performed By: #### L 100.0500 ####[facility] [address] [place], [address] MCV (RBC) [Entitic vol] 90.4 fL Normal 81-99 [facility] Comment on above: Performed By: #### L 100.0500 ####[facility] [address] [place], [address] Platelet mean volume (Bld) [Entitic vol] 9.6 fL Normal 6.2-12.0 [facility] Comment on above: Performed By: #### L 100.0500 ####[facility] [address] [place], [address] Platelets (Bld) [#/Vol] 227 10*3/uL Normal 150-450 [facility] Comment on above: Performed By: #### L 100.0500 ####[facility] [address] [place], [address] RBC (Bld) [#/Vol] 3.22 10*6/uL Low 4.2-5.4 [facility] Comment on above: Performed By: #### L 100.0500 ####[facility] [address] [place], [address] RDW SD 61.0 fl High 35.1-43.9 [facility] Comment on above: Performed By: #### L 100.0500 ####[facility] [address] [place], [address] WBC (Bld) [#/Vol] 9.4 10*3/uL Normal 4.4-11.0 [facility] Comment on above: Performed By: #### L 100.0500 ####[facility] [address] [place], [address] MR/PN.GIon 04-06-2024 MR/PN.GI Normal [facility] Bedside Glucoseon 04-05-2024 FINGERSTICK GLU 235 mg/dL High 74-106 [facility] Comment on above: Result Comment: ESPERANZA GEMENT OF PATIENT CARE PER NURSING PROTOCOL Performed By: #### L 501.080 ####[facility] [address] [place], [address] FINGERSTICK GLU 168 mg/dL High 74-106 [facility] Comment on above: Result Comment: ESPERANZA GEMENT OF PATIENT CARE PER NURSING PROTOCOL Performed By: #### L 501.080 ####[facility] [address] [place], [address] FINGERSTICK GLU 186 mg/dL High 74-106 [facility] Comment on above: Result Comment: ESPERANZA GEMENT OF PATIENT CARE PER NURSING PROTOCOL Performed By: #### L 501.080 ####[facility] [address] [place], [address] FINGERSTICK GLU 180 mg/dL High 74-106 [facility] Comment on above: Result Comment: ESPERANZA GEMENT OF PATIENT CARE PER NURSING PROTOCOL Performed By: #### L 501.080 ####[facility] [address] [place], [address] CBC-Complete Blood Cnt No Suri fletcher 04-05-2024 Erythrocyte distribution width (RBC) [Ratio] 19.4 % High 11.6-14.6 [facility] Comment on above: Performed By: #### L 100.0500 ####[facility] [address] [place], [address] Hematocrit (Bld) [Volume fraction] 28.5 % Low 37-47 [facility] Comment on above: Performed By: #### L 100.0500 ####[facility] [address] [place], [address] Hemoglobin (Bld) [Mass/Vol] 8.5 g/dL Low 12.0-15.0 [facility] Comment on above: Performed By: #### L 100.0500 ####[facility] [address] [place], [address] MCH (RBC) [Entitic mass] 27.2 pg Normal 27.0-32.0 [facility] Comment on above: Performed By: #### L 100.0500 ####[facility] [address] [place], [address] MCHC (RBC) [Mass/Vol] 29.8 g/dL Low 32-36 [facility] Comment on above: Performed By: #### L 100.0500 ####[facility] [address] [place], [address] MCV (RBC) [Entitic vol] 91.1 fL Normal 81-99 [facility] Comment on above: Performed By: #### L 100.0500 ####[facility] [address] [place], [address] Platelet mean volume (Bld) [Entitic vol] 9.9 fL Normal 6.2-12.0 [facility] Comment on above: Performed By: #### L 100.0500 ####[facility] [address] [place], [address] Platelets (Bld) [#/Vol] 213 10*3/uL Normal 150-450 [facility] Comment on above: Performed By: #### L 100.0500 ####[facility] [address] [place], [address] RBC (Bld) [#/Vol] 3.13 10*6/uL Low 4.2-5.4 [facility] Comment on above: Performed By: #### L 100.0500 ####[facility] [address] [place], [address] RDW SD 61.2 fl High 35.1-43.9 [facility] Comment on above: Performed By: #### L 100.0500 ####[facility] [address] [place], [address] WBC (Bld) [#/Vol] 8.1 10*3/uL Normal 4.4-11.0 [facility] Comment on above: Performed By: #### L 100.0500 ####[facility] [address] [place], [address] Basic Metabolic Profile (BMP )on 04-04-2024 BUN/CRE 23.7 RATIO High 10-20 [facility] Comment on above: Performed By: #### L 500.2500, L100.0100 ####[facility] [address] [place], [address] CA,Total 8.8 mg/dL Normal 8.5-10.1 [facility] Comment on above: Performed By: #### L 500.2500, L100.0100 ####[facility] [address] [place], [address] Chloride [Moles/Vol] 104 mmol/L Normal 98-107 [facility] Comment on above: Performed By: #### L 500.2500, L100.0100 ####[facility] [address] [place], [address] CO2 [Moles/Vol] 28.0 mmol/L Normal 21.0-32.0 [facility] Comment on above: Performed By: #### L 500.2500, L100.0100 ####[facility] [address] [place], [address] Creatinine [Mass/Vol] 0.63 mg/dL Normal 0.55-1.02 [facility] Comment on above: Result Comment: The validity of the calculated GFR GFRAA in patients over70 years has not been determined. Clinical correlation isessential. Performed By: #### L 500.2500, L100.0100 ####[facility] [address] [place], [address] ECRCL 113.97 ml/min Normal [facility] Comment on above: Performed By: #### L 500.2500, L100.0100 ####[facility] [address] [place], [address] EST GFR - AA 125 mL/min Normal >60 [facility] Comment on above: Result Comment: Afri can Citizen [place] GFR Calc Performed By: #### L 500.2500, L100.0100 ####[facility] [address] [place], [address] GAP 4 Low 5-15 [facility] Comment on above: Performed By: #### L 500.2500, L100.0100 ####[facility] [address] [place], [address] GFR/1.73 sq M.predicted among non-blacks MDRD (S/P/Bld) [Vol rate/Area] 103 mL/min/{1.73_m2} Normal >60 [facility] Comment on above: Result Comment: Non- GFR Calc Performed By: #### L 500.2500, L100.0100 ####[facility] [address] [place], [address] Glucose [Mass/Vol] 217 mg/dL High 74-106 [facility] Comment on above: Result Comment: Gluc ose result greater than or equal to 200 mg/dLsuggests DIABETES MELLITUS per A.D.A. criteria. Performed By: #### L 500.2500, L100.0100 ####[facility] [address] [place], [address] Potassium [Moles/Vol] 4.1 mmol/L Normal 3.5-5.1 [facility] Comment on above: Performed By: #### L 500.2500, L100.0100 ####[facility] [address] [place], [address] Sodium [Moles/Vol] 136 mmol/L Normal 136-145 [facility] Comment on above: Performed By: #### L 500.2500, L100.0100 ####[facility] [address] [place], [address] Urea nitrogen [Mass/Vol] 15 mg/dL Normal 7-18 [facility] Comment on above: Performed By: #### L 500.2500, L100.0100 ####[facility] [address] [place], [address] Bedside Glucoseon 04-04-2024 FINGERSTICK GLU 186 mg/dL High -106 [facility] Comment on above: Result Comment: ESPERANZA VILLALTA OF PATIENT CARE PER NURSING PROTOCOL Performed By: #### L 501.080 ####[facility] [address] [place], [address] FINGERSTICK GLU 248 mg/dL High 74-106 [facility] Comment on above: Result Comment: ESPERANZA GEMENT OF PATIENT CARE PER NURSING PROTOCOL Performed By: #### L 501.080 ####[facility] [address] [place], [address] FINGERSTICK GLU 199 mg/dL High 74-106 [facility] Comment on above: Result Comment: ESPERANZA GEMENT OF PATIENT CARE PER NURSING PROTOCOL Performed By: #### L 501.080 ####[facility] [address] [place], [address] FINGERSTICK GLU 214 mg/dL High 74-106 [facility] Comment on above: Result Comment: ESPERANZA GEMENT OF PATIENT CARE PER NURSING PROTOCOL Performed By: #### L 501.080 ####[facility] [address] [place], [address] FINGERSTICK GLU 184 mg/dL High 74-106 [facility] Comment on above: Result Comment: ESPERANZA GEMENT OF PATIENT CARE PER NURSING PROTOCOL Performed By: #### L 501.080 ####[facility] [address] [place], [address] CBC W/Diff, Automatedon 03-22 Absolute Lymph 1.26 X10 3/uL Normal 0.83-4.51 [facility] Comment on above: Performed By: #### L 500.2500, L100.0100 ####[facility] [address] [place], [address] Absolute Neut 5.9 X10 3/uL Normal 2.0-7.7 [facility] Comment on above: Performed By: #### L 500.2500, L100.0100 ####[facility] [address] [place], [address] PLT MORPH LARGE Normal [facility] Comment on above: Performed By: #### L 500.2500, L100.0100 ####[facility] [address] [place], [address] SMEAR COMMENT SCANNED Normal [facility] Comment on above: Result Comment: LEFT SHIFT: BANDS PRESENT 1+ Performed By: #### L 500.2500, L100.0100 ####[facility] [address] [place], [address] BAND 27 High 0-5 [facility] Comment on above: Performed By: #### L 500.2500, L100.0100 ####[facility] [address] [place], [address] Lymphocytes (Bld) [#/Vol] 17 10*3/uL Low 19-41 [facility] Comment on above: Performed By: #### L 500.2500, L100.0100 ####[facility] [address] [place], [address] MONOCYTE 3 Normal 0-10 [facility] Comment on above: Performed By: #### L 500.2500, L100.0100 ####[facility] [address] [place], [address] SEGS 53 Normal 47-70 [facility] Comment on above: Performed By: #### L 500.2500, L100.0100 ####[facility] [address] [place], [address] TOTAL CELLS 100 Normal MANUAL DIFF [facility] Comment on above: Performed By: #### L 500.2500, L100.0100 ####[facility] [address] [place], [address] EGD Reporton 04-04-2024 EGD Report Normal [facility] MR/CON.PCM.GIon 04-04-2024 MR/CON.PCM.GI Normal [facility] MR/POSTOP.ANEon 04-04-2024 MR/POSTOP.ANE Normal [facility] MR/OMFRRJIS7ld 04-04-2024 MR/POSTOPAN2 Normal [facility] NSE (add)on 04-04-2024 NSE (add) Normal [facility] Comment on above: Performed By: #### P NSE. ####[facility] [address] [place], [address] Surgery Specimen Level Aicha 04-04-2024 Surgery Specimen Level IV Normal [facility] Comment on above: Performed By: #### P SUIV ####[facility] [address] [place], [address] Urine Cultureon 04-04-2024 URC Mixed Gram Positive Organisms [place] Star Count 1000-10,000 MIXC Mixed contaminants. Submit a new specimen if indicated. Normal [facility] Comment on above: Performed By: #### M 100.2201 ####[facility] [address] [place], [address] 12 Lead EKGon 04-03-2024 12 Lead EKG Normal [facility] Abdomen/Pelvis W IV Cont ONL Yon 04-03-2024 Abdomen/Pelvis W IV Cont ONLY Normal [facility] BNP,B-Type NATRIURETIC PEPTI Lucila 04-03-2024 Natriuretic peptide B (Bld) [Mass/Vol] 45.5 pg/mL Normal 0-100 [facility] Comment on above: Performed By: #### L 503.6620 ####[facility] [address] [place], [address] BRCon 04-03-2024 RC Normal [facility] Comment on above: Result Comment: [id number] ON RC TRANSFUSED 04/03/24 [id number] ON RC TRANSFUSED 04/04/24 [id number] ON RC NOT AVAILABLE Performed By: #### B TS, [facility] ####[facility] [address] [place], [address] CTA Chest W/WO Contraston CTA Chest W/WO Contrast Normal [facility] Comprehensive Metabolic Prof ilon 04-03-2024 Albumin [Mass/Vol] 2.4 g/dL Low 3.2-5.0 [facility] Comment on above: Order Comment: 'TROP ' Serial specimen #1, #2 or #3: 1 Performed By: #### L 501.4020, L501.2450, L100.0100, L500.4050 ####[facility] [address] [place], [address] Albumin/Globulin [Mass ratio] 0.5 {ratio} Low 0.9-2.4 [facility] Comment on above: Order Comment: 'TROP ' Serial specimen #1, #2 or #3: 1 Performed By: #### L 501.4020, L501.2450, L100.0100, L500.4050 ####[facility] [address] [place], [address] ALK P 176 U/L High 45-117 [facility] Comment on above: Order Comment: 'TROP ' Serial specimen #1, #2 or #3: 1 Performed By: #### L 501.4020, L501.2450, L100.0100, L500.4050 ####[facility] [address] [place], [address] ALT [Catalytic activity/Vol] 18 U/L Normal 13-56 [facility] Comment on above: Order Comment: 'TROP ' Serial specimen #1, #2 or #3: 1 Performed By: #### L 501.4020, L501.2450, L100.0100, L500.4050 ####[facility] [address] [place], [address] AST [Catalytic activity/Vol] 17 U/L Normal 15-37 [facility] Comment on above: Order Comment: 'TROP ' Serial specimen #1, #2 or #3: 1 Performed By: #### L 501.4020, L501.2450, L100.0100, L500.4050 ####[facility] [address] [place], [address] Bilirubin [Mass/Vol] 0.50 mg/dL Normal 0.20-1.00 [facility] Comment on above: Order Comment: 'TROP ' Serial specimen #1, #2 or #3: 1 Result Comment: For patients on eltrombopag therapy, use of Dimension [place] TBIL is not recommended. Performed By: #### L 501.4020, L501.2450, L100.0100, L500.4050 ####[facility] [address] [place], [address] BUN/CRE 35.0 RATIO High 10-20 [facility] Comment on above: Order Comment: 'TROP ' Serial specimen #1, #2 or #3: 1 Performed By: #### L 501.4020, L501.2450, L100.0100, L500.4050 ####[facility] [address] [place], [address] CA,Total 8.9 mg/dL Normal 8.5-10.1 [facility] Comment on above: Order Comment: 'TROP ' Serial specimen #1, #2 or #3: 1 Performed By: #### L 501.4020, L501.2450, L100.0100, L500.4050 ####[facility] [address] [place], [address] Chloride [Moles/Vol] 103 mmol/L Normal 98-107 [facility] Comment on above: Order Comment: 'TROP ' Serial specimen #1, #2 or #3: 1 Performed By: #### L 501.4020, L501.2450, L100.0100, L500.4050 ####[facility] [address] [place], [address] CO2 [Moles/Vol] 29.0 mmol/L Normal 21.0-32.0 [facility] Comment on above: Order Comment: 'TROP ' Serial specimen #1, #2 or #3: 1 Performed By: #### L 501.4020, L501.2450, L100.0100, L500.4050 ####[facility] [address] [place], [address] Creatinine [Mass/Vol] 0.71 mg/dL Normal 0.55-1.02 [facility] Comment on above: Order Comment: 'TROP ' Serial specimen #1, #2 or #3: 1 Result Comment: The validity of the calculated GFR GFRAA in patients over70 years has not been determined. Clinical correlation isessential. Performed By: #### L 501.4020, L501.2450, L100.0100, L500.4050 ####[facility] [address] [place], [address] EST GFR - AA 108 mL/min Normal >60 [facility] Comment on above: Order Comment: 'TROP ' Serial specimen #1, #2 or #3: 1 Result Comment: Afri can Citizen [place] GFR Calc Performed By: #### L 501.4020, L501.2450, L100.0100, L500.4050 ####[facility] [address] [place], [address] GAP 3 Low 5-15 [facility] Comment on above: Order Comment: 'TROP ' Serial specimen #1, #2 or #3: 1 Performed By: #### L 501.4020, L501.2450, L100.0100, L500.4050 ####[facility] [address] [place], [address] GFR/1.73 sq M.predicted among non-blacks MDRD (S/P/Bld) [Vol rate/Area] 90 mL/min/{1.73_m2} Normal >60 [facility] Comment on above: Order Comment: 'TROP ' Serial specimen #1, #2 or #3: 1 Result Comment: Non- GFR Calc Performed By: #### L 501.4020, L501.2450, L100.0100, L500.4050 ####[facility] [address] [place], [address] Globulin (S) [Mass/Vol] 4.5 g/dL High 2.2-4.2 [facility] Comment on above: Order Comment: 'TROP ' Serial specimen #1, #2 or #3: 1 Performed By: #### L 501.4020, L501.2450, L100.0100, L500.4050 ####[facility] [address] [place], [address] Glucose [Mass/Vol] 282 mg/dL High 74-106 [facility] Comment on above: Order Comment: 'TROP ' Serial specimen #1, #2 or #3: 1 Result Comment: Gluc ose result greater than or equal to 200 mg/dLsuggests DIABETES MELLITUS per A.D.A. criteria. Performed By: #### L 501.4020, L501.2450, L100.0100, L500.4050 ####[facility] [address] [place], [address] Potassium [Moles/Vol] 4.4 mmol/L Normal 3.5-5.1 [facility] Comment on above: Order Comment: 'TROP ' Serial specimen #1, #2 or #3: 1 Performed By: #### L 501.4020, L501.2450, L100.0100, L500.4050 ####[facility] [address] [place], [address] Sodium [Moles/Vol] 135 mmol/L Low 136-145 [facility] Comment on above: Order Comment: 'TROP ' Serial specimen #1, #2 or #3: 1 Performed By: #### L 501.4020, L501.2450, L100.0100, L500.4050 ####[facility] [address] [place], [address] T PROT 6.9 g/dL Normal 6.4-8.2 [facility] Comment on above: Order Comment: 'TROP ' Serial specimen #1, #2 or #3: 1 Performed By: #### L 501.4020, L501.2450, L100.0100, L500.4050 ####[facility] [address] [place], [address] Urea nitrogen [Mass/Vol] 25 mg/dL High 7-18 [facility] Comment on above: Order Comment: 'TROP ' Serial specimen #1, #2 or #3: 1 Performed By: #### L 501.4020, L501.2450, L100.0100, L500.4050 ####[facility] [address] [place], [address] Emergency Department Summary on 04-03-2024 Emergency Department Summary Normal [facility] H AND P Exam - Hospitaliston 04-03-2024 H&P Exam - Hospitalist Normal [facility] HH, Hemoglobin AND Hematocri ton 04-03-2024 Hematocrit (Bld) [Volume fraction] 23.1 % Low 37-47 [facility] Comment on above: Performed By: #### L 100.0600 ####[facility] [address] [place], [address] Hemoglobin (Bld) [Mass/Vol] 6.8 g/dL Low 12.0-15.0 [facility] Comment on above: Performed By: #### L 100.0600 ####[facility] [address] [place], [address] L501.4020on 04-03-2024 TROPONIN-I HS 39 pg/mL Normal 3.0-54.0 [facility] Comment on above: Order Comment: 'TROP ' Serial specimen #1, #2 or #3: 1 Result Comment: Ronnie mcleod Note: New Test Units and Gender Specific Reference Ranges. For more information see Policy Stat Procedure [place] High Sensitivity Troponin (TNIH) and attachments. Performed By: #### L 501.4020, L501.2450, L100.0100, L500.4050 ####[facility] [address] [place], [address] Lipaseon 04-03-2024 Lipase [Catalytic activity/Vol] 28 U/L Normal 13-75 [facility] Comment on above: Order Comment: 'TROP ' Serial specimen #1, #2 or #3: 1 Result Comment: Ronnie mcleod note:LIPASE revised reference range effective 22.New Lipase methodology. Expected to produce lower valuesthan the previous assay method.NEW Reference Range: 13 - 75 U/L Performed By: #### L 501.4020, L501.2450, L100.0100, L500.4050 ####[facility] [address] [place], [address] M100.678on 04-03-2024 M100.678 Pending SARS-CoV-2 (COVID 19) Negative INFLUENZA A Negative INFLUENZA B Negative RSV PCR Negative Normal [facility] Comment on above: Performed By: #### M 100.678 ####[facility] [address] [place], [address] Stool Occult Blood iFOBon STOB Positive Normal [facility] Comment on above: Performed By: #### M 100.7900 ####[facility] [address] [place], [address] Type AND Screenon 04-03-2024 Ab SCREEN GEL Negative Normal [facility] Comment on above: Order Comment: CMV N EG? NNumber of units to transfuse: 1Reason for Ordering Blood: AcuteAre the blood/blood products to be transfused? YIs the patient having/had surgery? Yuri Hernandes Performed By: #### B JEFFERY HANDY ####[facility] [address] [place], [address] Urinalysis, Completeon 04-03 BACTERIA RARE Normal None Seen [facility] Comment on above: Order Comment: CLEAN CATCH Performed By: #### L 400.0001 ####[facility] [address] [place], [address] EPI,SQUAMOUS 5-10 SEEN Normal 5-10 [facility] Comment on above: Order Comment: CLEAN CATCH Performed By: #### L 400.0001 ####[facility] [address] [place], [address] WBC 50-100 SEEN Normal 0-5 [facility] Comment on above: Order Comment: CLEAN CATCH Performed By: #### L 400.0001 ####[facility] [address] [place], [address] RBC 25-50 SEEN Normal 0-5 [facility] Comment on above: Order Comment: CLEAN CATCH Performed By: #### L 400.0001 ####[facility] [address] [place], [address] Mucus Ql (Urine sed) 0 SEEN Normal [facility] Comment on above: Order Comment: CLEAN CATCH Performed By: #### L 400.0001 ####[facility] [address] [place], [address] Venous Duplex US, Unilateral on 04-03-2024 Venous Duplex US, Unilateral Normal [facility] XR WRIST MINIMUM 3 VIEWS RIG [...] Date: 03/30/2024 3:29:35 AM Ordering Provider: ALDA ABBASI [facility] NITROFURANTOIN:SUSC:PT:CARRIE TE:ORDQN:MICon 03-16-2024 Nitrofurantoin SHAHEEN [Susc] 10,000 - 50,000 cfu/ml Enterococcus faecalis [facility] Work Phone: Nitrofurantoin SHAHEEN [Susc]on 03-16-2024 Enterococcus faecalis Enterococcus faecalis [facility] Work Phone: XR ABDOMEN APon 03-16-2024 [...] 03/16/2024 9:06:05 AM Ordering Provider: KURT PINEDA [facility] ([place]) Basic Metabolic Profile (BMP )on 03-12-2024 BUN Normal 7-18 [facility] Comment on above: Result Comment: Canc elled via OM: Order cancelled - Patient discharged Performed By: #### L 500.2500, L100.0100 ####[facility] [address] [place], [address] BUN/CRE Normal 10-20 [facility] Comment on above: Result Comment: Canc elled via OM: Order cancelled - Patient discharged Performed By: #### L 500.2500, L100.0100 ####[facility] [address] [place], [address] CA,Total Normal 8.5-10.1 [facility] Comment on above: Result Comment: Canc elled via OM: Order cancelled - Patient discharged Performed By: #### L 500.2500, L100.0100 ####[facility] [address] [place], [address] CL Normal 98-107 [facility] Comment on above: Result Comment: Canc elled via OM: Order cancelled - Patient discharged Performed By: #### L 500.2500, L100.0100 ####[facility] [address] [place], [address] CO2 Normal 21.0-32.0 [facility] Comment on above: Result Comment: Canc elled via OM: Order cancelled - Patient discharged Performed By: #### L 500.2500, L100.0100 ####[facility] [address] [place], [address] CREAT,SERUM Normal 0.55-1.02 [facility] Comment on above: Result Comment: Canc elled via OM: Order cancelled - Patient discharged Performed By: #### L 500.2500, L100.0100 ####[facility] [address] [place], [address] EST GFR Normal >60 [facility] Comment on above: Result Comment: Canc elled via OM: Order cancelled - Patient discharged Performed By: #### L 500.2500, L100.0100 ####[facility] [address] [place], [address] EST GFR - AA Normal >60 [facility] Comment on above: Result Comment: Canc elled via OM: Order cancelled - Patient discharged Performed By: #### L 500.2500, L100.0100 ####[facility] [address] [place], [address] GAP Normal 5-15 [facility] Comment on above: Result Comment: Canc elled via OM: Order cancelled - Patient discharged Performed By: #### L 500.2500, L100.0100 ####[facility] [address] [place], [address] GLU Normal 74-106 [facility] Comment on above: Result Comment: Canc elled via OM: Order cancelled - Patient discharged Performed By: #### L 500.2500, L100.0100 ####[facility] [address] [place], [address] Potassium Normal 3.5-5.1 [facility] Comment on above: Result Comment: Canc elled via OM: Order cancelled - Patient discharged Performed By: #### L 500.2500, L100.0100 ####[facility] [address] [place], [address] Basic Metabolic Profile (BMP) Normal 136-145 [facility] Comment on above: Result Comment: Canc elled via OM: Order cancelled - Patient discharged Performed By: #### L 500.2500, L100.0100 ####[facility] [address] [place], [address] CBC W/Diff, Automatedon 08-2 Absolute Neut Normal 2.0-7.7 [facility] Comment on above: Result Comment: Canc elled via OM: Order cancelled - Patient discharged Performed By: #### L 500.2500, L100.0100 ####[facility] [address] [place], [address] HCT Normal 37-47 [facility] Comment on above: Result Comment: Canc elled via OM: Order cancelled - Patient discharged Performed By: #### L 500.2500, L100.0100 ####[facility] [address] [place], [address] HGB Normal 12.0-15.0 [facility] Comment on above: Result Comment: Canc elled via OM: Order cancelled - Patient discharged Performed By: #### L 500.2500, L100.0100 ####[facility] [address] [place], [address] MCH Normal 27.0-32.0 [facility] Comment on above: Result Comment: Canc elled via OM: Order cancelled - Patient discharged Performed By: #### L 500.2500, L100.0100 ####[facility] [address] [place], [address] MCHC Normal 32-36 [facility] Comment on above: Result Comment: Canc elled via OM: Order cancelled - Patient discharged Performed By: #### L 500.2500, L100.0100 ####[facility] [address] [place], [address] MCV Normal 81-99 [facility] Comment on above: Result Comment: Canc elled via OM: Order cancelled - Patient discharged Performed By: #### L 500.2500, L100.0100 ####[facility] [address] [place], [address] NEUT% Normal 47-70 [facility] Comment on above: Result Comment: Canc elled via OM: Order cancelled - Patient discharged Performed By: #### L 500.2500, L100.0100 ####[facility] [address] [place], [address] PLT Normal 150-450 [facility] Comment on above: Result Comment: Canc elled via OM: Order cancelled - Patient discharged Performed By: #### L 500.2500, L100.0100 ####[facility] [address] [place], [address] RBC Normal 4.2-5.4 [facility] Comment on above: Result Comment: Canc elled via OM: Order cancelled - Patient discharged Performed By: #### L 500.2500, L100.0100 ####[facility] [address] [place], [address] RDW CV Normal 11.6-14.6 [facility] Comment on above: Result Comment: Canc elled via OM: Order cancelled - Patient discharged Performed By: #### L 500.2500, L100.0100 ####[facility] [address] [place], [address] RDW SD Normal 35.1-43.9 [facility] Comment on above: Result Comment: Canc elled via OM: Order cancelled - Patient discharged Performed By: #### L 500.2500, L100.0100 ####[facility] [address] [place], [address] WBC Normal 4.4-11.0 [facility] Comment on above: Result Comment: Canc elled via OM: Order cancelled - Patient discharged Performed By: #### L 500.2500, L100.0100 ####[facility] [address] [place], [address] Endocrinology Visit Reporton 03-12-2024 Endocrinology Visit Report Normal [facility] Basic Metabolic Profile (BMP )on 03-11-2024 BUN Normal 7-18 [facility] Comment on above: Result Comment: Canc elled via OM: Order cancelled - Patient discharged Performed By: #### L 100.0100, L500.2500 ####[facility] [address] [place], [address] BUN/CRE Normal 10-20 [facility] Comment on above: Result Comment: Canc elled via OM: Order cancelled - Patient discharged Performed By: #### L 100.0100, L500.2500 ####[facility] [address] [place], [address] CA,Total Normal 8.5-10.1 [facility] Comment on above: Result Comment: Canc elled via OM: Order cancelled - Patient discharged Performed By: #### L 100.0100, L500.2500 ####[facility] [address] [place], [address] CL Normal 98-107 [facility] Comment on above: Result Comment: Canc elled via OM: Order cancelled - Patient discharged Performed By: #### L 100.0100, L500.2500 ####[facility] [address] [place], [address] CO2 Normal 21.0-32.0 [facility] Comment on above: Result Comment: Canc elled via OM: Order cancelled - Patient discharged Performed By: #### L 100.0100, L500.2500 ####[facility] [address] [place], [address] CREAT,SERUM Normal 0.55-1.02 [facility] Comment on above: Result Comment: Canc elled via OM: Order cancelled - Patient discharged Performed By: #### L 100.0100, L500.2500 ####[facility] [address] [place], [address] EST GFR Normal >60 [facility] Comment on above: Result Comment: Canc elled via OM: Order cancelled - Patient discharged Performed By: #### L 100.0100, L500.2500 ####[facility] [address] [place], [address] EST GFR - AA Normal >60 [facility] Comment on above: Result Comment: Canc elled via OM: Order cancelled - Patient discharged Performed By: #### L 100.0100, L500.2500 ####[facility] [address] [place], [address] GAP Normal 5-15 [facility] Comment on above: Result Comment: Canc elled via OM: Order cancelled - Patient discharged Performed By: #### L 100.0100, L500.2500 ####[facility] [address] [place], [address] GLU Normal 74-106 [facility] Comment on above: Result Comment: Canc elled via OM: Order cancelled - Patient discharged Performed By: #### L 100.0100, L500.2500 ####[facility] [address] [place], [address] Potassium Normal 3.5-5.1 [facility] Comment on above: Result Comment: Canc elled via OM: Order cancelled - Patient discharged Performed By: #### L 100.0100, L500.2500 ####[facility] [address] [place], [address] Basic Metabolic Profile (BMP) Normal 136-145 [facility] Comment on above: Result Comment: Canc elled via OM: Order cancelled - Patient discharged Performed By: #### L 100.0100, L500.2500 ####[facility] [address] [place], [address] CBC W/Diff, Automatedon 08-2 -2023 Absolute Neut Normal 2.0-7.7 [facility] Comment on above: Result Comment: Canc elled via OM: Order cancelled - Patient discharged Performed By: #### L 100.0100, L500.2500 ####[facility] [address] [place], [address] HCT Normal 37-47 [facility] Comment on above: Result Comment: Canc elled via OM: Order cancelled - Patient discharged Performed By: #### L 100.0100, L500.2500 ####[facility] [address] [place], [address] HGB Normal 12.0-15.0 [facility] Comment on above: Result Comment: Canc elled via OM: Order cancelled - Patient discharged Performed By: #### L 100.0100, L500.2500 ####[facility] [address] [place], [address] MCH Normal 27.0-32.0 [facility] Comment on above: Result Comment: Canc elled via OM: Order cancelled - Patient discharged Performed By: #### L 100.0100, L500.2500 ####[facility] [address] [place], [address] MCHC Normal 32-36 [facility] Comment on above: Result Comment: Canc elled via OM: Order cancelled - Patient discharged Performed By: #### L 100.0100, L500.2500 ####[facility] [address] [place], [address] MCV Normal 81-99 [facility] Comment on above: Result Comment: Canc elled via OM: Order cancelled - Patient discharged Performed By: #### L 100.0100, L500.2500 ####[facility] [address] [place], [address] NEUT% Normal 47-70 [facility] Comment on above: Result Comment: Canc elled via OM: Order cancelled - Patient discharged Performed By: #### L 100.0100, L500.2500 ####[facility] [address] [place], [address] PLT Normal 150-450 [facility] Comment on above: Result Comment: Canc elled via OM: Order cancelled - Patient discharged Performed By: #### L 100.0100, L500.2500 ####[facility] [address] [place], [address] RBC Normal 4.2-5.4 [facility] Comment on above: Result Comment: Canc elled via OM: Order cancelled - Patient discharged Performed By: #### L 100.0100, L500.2500 ####[facility] [address] [place], [address] RDW CV Normal 11.6-14.6 [facility] Comment on above: Result Comment: Canc elled via OM: Order cancelled - Patient discharged Performed By: #### L 100.0100, L500.2500 ####[facility] [address] [place], [address] RDW SD Normal 35.1-43.9 [facility] Comment on above: Result Comment: Canc elled via OM: Order cancelled - Patient discharged Performed By: #### L 100.0100, L500.2500 ####[facility] [address] [place], [address] WBC Normal 4.4-11.0 [facility] Comment on above: Result Comment: Canc elled via OM: Order cancelled - Patient discharged Performed By: #### L 100.0100, L500.2500 ####[facility] [address] [place], [address] Basic Metabolic Profile (BMP )on 03-10-2024 BUN Normal -18 [facility] Comment on above: Result Comment: Canc elled via OM: Order cancelled - Patient discharged Performed By: #### L 500.2500, L100.0100 ####[facility] [address] [place], [address] BUN/CRE Normal -20 [facility] Comment on above: Result Comment: Canc elled via OM: Order cancelled - Patient discharged Performed By: #### L 500.2500, L100.0100 ####[facility] [address] [place], [address] CA,Total Normal 8.5-10.1 [facility] Comment on above: Result Comment: Canc elled via OM: Order cancelled - Patient discharged Performed By: #### L 500.2500, L100.0100 ####[facility] [address] [place], [address] CL Normal 98-107 [facility] Comment on above: Result Comment: Canc elled via OM: Order cancelled - Patient discharged Performed By: #### L 500.2500, L100.0100 ####[facility] [address] [place], [address] CO2 Normal 21.0-32.0 [facility] Comment on above: Result Comment: Canc elled via OM: Order cancelled - Patient discharged Performed By: #### L 500.2500, L100.0100 ####[facility] [address] [place], [address] CREAT,SERUM Normal 0.55-1.02 [facility] Comment on above: Result Comment: Canc elled via OM: Order cancelled - Patient discharged Performed By: #### L 500.2500, L100.0100 ####[facility] [address] [place], [address] EST GFR Normal >60 [facility] Comment on above: Result Comment: Canc elled via OM: Order cancelled - Patient discharged Performed By: #### L 500.2500, L100.0100 ####[facility] [address] [place], [address] EST GFR - AA Normal >60 [facility] Comment on above: Result Comment: Canc elled via OM: Order cancelled - Patient discharged Performed By: #### L 500.2500, L100.0100 ####[facility] [address] [place], [address] GAP Normal 5-15 [facility] Comment on above: Result Comment: Canc elled via OM: Order cancelled - Patient discharged Performed By: #### L 500.2500, L100.0100 ####[facility] [address] [place], [address] GLU Normal 74-106 [facility] Comment on above: Result Comment: Canc elled via OM: Order cancelled - Patient discharged Performed By: #### L 500.2500, L100.0100 ####[facility] [address] [place], [address] Potassium Normal 3.5-5.1 [facility] Comment on above: Result Comment: Canc elled via OM: Order cancelled - Patient discharged Performed By: #### L 500.2500, L100.0100 ####[facility] [address] [place], [address] Basic Metabolic Profile (BMP) Normal 136-145 [facility] Comment on above: Result Comment: Canc elled via OM: Order cancelled - Patient discharged Performed By: #### L 500.2500, L100.0100 ####[facility] [address] [place], [address] CBC W/Diff, Automatedon 08-2 0-4 Absolute Neut Normal 2.0-7.7 [facility] Comment on above: Result Comment: Canc elled via OM: Order cancelled - Patient discharged Performed By: #### L 500.2500, L100.0100 ####[facility] [address] [place], [address] HCT Normal 37-47 [facility] Comment on above: Result Comment: Canc elled via OM: Order cancelled - Patient discharged Performed By: #### L 500.2500, L100.0100 ####[facility] [address] [place], [address] HGB Normal 12.0-15.0 [facility] Comment on above: Result Comment: Canc elled via OM: Order cancelled - Patient discharged Performed By: #### L 500.2500, L100.0100 ####[facility] [address] [place], [address] MCH Normal 27.0-32.0 [facility] Comment on above: Result Comment: Canc elled via OM: Order cancelled - Patient discharged Performed By: #### L 500.2500, L100.0100 ####[facility] [address] [place], [address] MCHC Normal 32-36 [facility] Comment on above: Result Comment: Canc elled via OM: Order cancelled - Patient discharged Performed By: #### L 500.2500, L100.0100 ####[facility] [address] [place], [address] MCV Normal 81-99 [facility] Comment on above: Result Comment: Canc elled via OM: Order cancelled - Patient discharged Performed By: #### L 500.2500, L100.0100 ####[facility] [address] [place], [address] NEUT% Normal 47-70 [facility] Comment on above: Result Comment: Canc elled via OM: Order cancelled - Patient discharged Performed By: #### L 500.2500, L100.0100 ####[facility] [address] [place], [address] PLT Normal 150-450 [facility] Comment on above: Result Comment: Canc elled via OM: Order cancelled - Patient discharged Performed By: #### L 500.2500, L100.0100 ####[facility] [address] [place], [address] RBC Normal 4.2-5.4 [facility] Comment on above: Result Comment: Canc elled via OM: Order cancelled - Patient discharged Performed By: #### L 500.2500, L100.0100 ####[facility] [address] [place], [address] RDW CV Normal 11.6-14.6 [facility] Comment on above: Result Comment: Canc elled via OM: Order cancelled - Patient discharged Performed By: #### L 500.2500, L100.0100 ####[facility] [address] [place], [address] RDW SD Normal 35.1-43.9 [facility] Comment on above: Result Comment: Canc elled via OM: Order cancelled - Patient discharged Performed By: #### L 500.2500, L100.0100 ####[facility] [address] [place], [address] WBC Normal 4.4-11.0 [facility] Comment on above: Result Comment: Canc elled via OM: Order cancelled - Patient discharged Performed By: #### L 500.2500, L100.0100 ####[facility] [address] [place], [address] Basic Metabolic Profile (BMP )on 03-09-2024 BUN Normal -18 [facility] Comment on above: Result Comment: Canc elled via OM: Order cancelled - Patient discharged Performed By: #### L 100.0100, L500.2500 ####[facility] [address] [place], [address] BUN/CRE Normal 10-20 [facility] Comment on above: Result Comment: Canc elled via OM: Order cancelled - Patient discharged Performed By: #### L 100.0100, L500.2500 ####[facility] [address] [place], [address] CA,Total Normal 8.5-10.1 [facility] Comment on above: Result Comment: Canc elled via OM: Order cancelled - Patient discharged Performed By: #### L 100.0100, L500.2500 ####[facility] [address] [place], [address] CL Normal 98-107 [facility] Comment on above: Result Comment: Canc elled via OM: Order cancelled - Patient discharged Performed By: #### L 100.0100, L500.2500 ####[facility] [address] [place], [address] CO2 Normal 21.0-32.0 [facility] Comment on above: Result Comment: Canc elled via OM: Order cancelled - Patient discharged Performed By: #### L 100.0100, L500.2500 ####[facility] [address] [place], [address] CREAT,SERUM Normal 0.55-1.02 [facility] Comment on above: Result Comment: Canc elled via OM: Order cancelled - Patient discharged Performed By: #### L 100.0100, L500.2500 ####[facility] [address] [place], [address] EST GFR Normal >60 [facility] Comment on above: Result Comment: Canc elled via OM: Order cancelled - Patient discharged Performed By: #### L 100.0100, L500.2500 ####[facility] [address] [place], [address] EST GFR - AA Normal >60 [facility] Comment on above: Result Comment: Canc elled via OM: Order cancelled - Patient discharged Performed By: #### L 100.0100, L500.2500 ####[facility] [address] [place], [address] GAP Normal 5-15 [facility] Comment on above: Result Comment: Canc elled via OM: Order cancelled - Patient discharged Performed By: #### L 100.0100, L500.2500 ####[facility] [address] [place], [address] GLU Normal 74-106 [facility] Comment on above: Result Comment: Canc elled via OM: Order cancelled - Patient discharged Performed By: #### L 100.0100, L500.2500 ####[facility] [address] [place], [address] Potassium Normal 3.5-5.1 [facility] Comment on above: Result Comment: Canc elled via OM: Order cancelled - Patient discharged Performed By: #### L 100.0100, L500.2500 ####[facility] [address] [place], [address] Basic Metabolic Profile (BMP) Normal 136-145 [facility] Comment on above: Result Comment: Canc elled via OM: Order cancelled - Patient discharged Performed By: #### L 100.0100, L500.2500 ####[facility] [address] [place], [address] CBC W/Diff, Automatedon 08- Absolute Neut Normal 2.0-7.7 [facility] Comment on above: Result Comment: Canc elled via OM: Order cancelled - Patient discharged Performed By: #### L 100.0100, L500.2500 ####[facility] [address] [place], [address] HCT Normal 37-47 [facility] Comment on above: Result Comment: Canc elled via OM: Order cancelled - Patient discharged Performed By: #### L 100.0100, L500.2500 ####[facility] [address] [place], [address] HGB Normal 12.0-15.0 [facility] Comment on above: Result Comment: Canc elled via OM: Order cancelled - Patient discharged Performed By: #### L 100.0100, L500.2500 ####[facility] [address] [place], [address] MCH Normal 27.0-32.0 [facility] Comment on above: Result Comment: Canc elled via OM: Order cancelled - Patient discharged Performed By: #### L 100.0100, L500.2500 ####[facility] [address] [place], [address] MCHC Normal 32-36 [facility] Comment on above: Result Comment: Canc elled via OM: Order cancelled - Patient discharged Performed By: #### L 100.0100, L500.2500 ####[facility] [address] [place], [address] MCV Normal 81-99 [facility] Comment on above: Result Comment: Canc elled via OM: Order cancelled - Patient discharged Performed By: #### L 100.0100, L500.2500 ####[facility] [address] [place], [address] NEUT% Normal 47-70 [facility] Comment on above: Result Comment: Canc elled via OM: Order cancelled - Patient discharged Performed By: #### L 100.0100, L500.2500 ####[facility] [address] [place], [address] PLT Normal 150-450 [facility] Comment on above: Result Comment: Canc elled via OM: Order cancelled - Patient discharged Performed By: #### L 100.0100, L500.2500 ####[facility] [address] [place], [address] RBC Normal 4.2-5.4 [facility] Comment on above: Result Comment: Canc elled via OM: Order cancelled - Patient discharged Performed By: #### L 100.0100, L500.2500 ####[facility] [address] [place], [address] RDW CV Normal 11.6-14.6 [facility] Comment on above: Result Comment: Canc elled via OM: Order cancelled - Patient discharged Performed By: #### L 100.0100, L500.2500 ####[facility] [address] [place], [address] RDW SD Normal 35.1-43.9 [facility] Comment on above: Result Comment: Canc elled via OM: Order cancelled - Patient discharged Performed By: #### L 100.0100, L500.2500 ####[facility] [address] [place], [address] WBC Normal 4.4-11.0 [facility] Comment on above: Result Comment: Canc elled via OM: Order cancelled - Patient discharged Performed By: #### L 100.0100, L500.2500 ####[facility] [address] [place], [address] Basic Metabolic Profile (BMP )on 03-08-2024 BUN Normal 7-18 [facility] Comment on above: Result Comment: Canc elled via OM: Order cancelled - Patient discharged Performed By: #### L 100.0100, L500.2500 ####[facility] [address] [place], [address] BUN/CRE Normal 10-20 [facility] Comment on above: Result Comment: Canc elled via OM: Order cancelled - Patient discharged Performed By: #### L 100.0100, L500.2500 ####[facility] [address] [place], [address] CA,Total Normal 8.5-10.1 [facility] Comment on above: Result Comment: Canc elled via OM: Order cancelled - Patient discharged Performed By: #### L 100.0100, L500.2500 ####[facility] [address] [place], [address] CL Normal 98-107 [facility] Comment on above: Result Comment: Canc elled via OM: Order cancelled - Patient discharged Performed By: #### L 100.0100, L500.2500 ####[facility] [address] [place], [address] CO2 Normal 21.0-32.0 [facility] Comment on above: Result Comment: Canc elled via OM: Order cancelled - Patient discharged Performed By: #### L 100.0100, L500.2500 ####[facility] [address] [place], [address] CREAT,SERUM Normal 0.55-1.02 [facility] Comment on above: Result Comment: Canc elled via OM: Order cancelled - Patient discharged Performed By: #### L 100.0100, L500.2500 ####[facility] [address] [place], [address] EST GFR Normal >60 [facility] Comment on above: Result Comment: Canc elled via OM: Order cancelled - Patient discharged Performed By: #### L 100.0100, L500.2500 ####[facility] [address] [place], [address] EST GFR - AA Normal >60 [facility] Comment on above: Result Comment: Canc elled via OM: Order cancelled - Patient discharged Performed By: #### L 100.0100, L500.2500 ####[facility] [address] [place], [address] GAP Normal 5-15 [facility] Comment on above: Result Comment: Canc elled via OM: Order cancelled - Patient discharged Performed By: #### L 100.0100, L500.2500 ####[facility] [address] [place], [address] GLU Normal 74-106 [facility] Comment on above: Result Comment: Canc elled via OM: Order cancelled - Patient discharged Performed By: #### L 100.0100, L500.2500 ####[facility] [address] [place], [address] Potassium Normal 3.5-5.1 [facility] Comment on above: Result Comment: Canc elled via OM: Order cancelled - Patient discharged Performed By: #### L 100.0100, L500.2500 ####[facility] [address] [place], [address] Basic Metabolic Profile (BMP) Normal 136-145 [facility] Comment on above: Result Comment: Canc elled via OM: Order cancelled - Patient discharged Performed By: #### L 100.0100, L500.2500 ####[facility] [address] [place], [address] CBC W/Diff, Automatedon 08- Absolute Neut Normal 2.0-7.7 [facility] Comment on above: Result Comment: Canc elled via OM: Order cancelled - Patient discharged Performed By: #### L 100.0100, L500.2500 ####[facility] [address] [place], [address] HCT Normal 37-47 [facility] Comment on above: Result Comment: Canc elled via OM: Order cancelled - Patient discharged Performed By: #### L 100.0100, L500.2500 ####[facility] [address] [place], [address] HGB Normal 12.0-15.0 [facility] Comment on above: Result Comment: Canc elled via OM: Order cancelled - Patient discharged Performed By: #### L 100.0100, L500.2500 ####[facility] [address] [place], [address] MCH Normal 27.0-32.0 [facility] Comment on above: Result Comment: Canc elled via OM: Order cancelled - Patient discharged Performed By: #### L 100.0100, L500.2500 ####[facility] [address] [place], [address] MCHC Normal 32-36 [facility] Comment on above: Result Comment: Canc elled via OM: Order cancelled - Patient discharged Performed By: #### L 100.0100, L500.2500 ####[facility] [address] [place], [address] MCV Normal 81-99 [facility] Comment on above: Result Comment: Canc elled via OM: Order cancelled - Patient discharged Performed By: #### L 100.0100, L500.2500 ####[facility] [address] [place], [address] NEUT% Normal 47-70 [facility] Comment on above: Result Comment: Canc elled via OM: Order cancelled - Patient discharged Performed By: #### L 100.0100, L500.2500 ####[facility] [address] [place], [address] PLT Normal 150-450 [facility] Comment on above: Result Comment: Canc elled via OM: Order cancelled - Patient discharged Performed By: #### L 100.0100, L500.2500 ####[facility] [address] [place], [address] RBC Normal 4.2-5.4 [facility] Comment on above: Result Comment: Canc elled via OM: Order cancelled - Patient discharged Performed By: #### L 100.0100, L500.2500 ####[facility] [address] [place], [address] RDW CV Normal 11.6-14.6 [facility] Comment on above: Result Comment: Canc elled via OM: Order cancelled - Patient discharged Performed By: #### L 100.0100, L500.2500 ####[facility] [address] [place], [address] RDW SD Normal 35.1-43.9 [facility] Comment on above: Result Comment: Canc elled via OM: Order cancelled - Patient discharged Performed By: #### L 100.0100, L500.2500 ####[facility] [address] [place], [address] WBC Normal 4.4-11.0 [facility] Comment on above: Result Comment: Canc elled via OM: Order cancelled - Patient discharged Performed By: #### L 100.0100, L500.2500 ####[facility] [address] [place], [address] Basic Metabolic Profile (BMP )on 03-07-2024 BUN/CRE 22.7 RATIO High 10-20 [facility] Comment on above: Performed By: #### L 100.0100, L500.2500 ####[facility] [address] [place], [address] CA,Total 8.7 mg/dL Normal 8.5-10.1 [facility] Comment on above: Performed By: #### L 100.0100, L500.2500 ####[facility] [address] [place], [address] Chloride [Moles/Vol] 104 mmol/L Normal 98-107 [facility] Comment on above: Performed By: #### L 100.0100, L500.2500 ####[facility] [address] [place], [address] CO2 [Moles/Vol] 28.0 mmol/L Normal 21.0-32.0 [facility] Comment on above: Performed By: #### L 100.0100, L500.2500 ####[facility] [address] [place], [address] Creatinine [Mass/Vol] 0.66 mg/dL Normal 0.55-1.02 [facility] Comment on above: Result Comment: The validity of the calculated GFR GFRAA in patients over70 years has not been determined. Clinical correlation isessential. Performed By: #### L 100.0100, L500.2500 ####[facility] [address] [place], [address] ECRCL 108.38 ml/min Normal [facility] Comment on above: Performed By: #### L 100.0100, L500.2500 ####[facility] [address] [place], [address] EST GFR - AA 118 mL/min Normal >60 [facility] Comment on above: Result Comment: Afri can Citizen [place] GFR Calc Performed By: #### L 100.0100, L500.2500 ####[facility] [address] [place], [address] GAP 5 Normal 5-15 [facility] Comment on above: Performed By: #### L 100.0100, L500.2500 ####[facility] [address] [place], [address] GFR/1.73 sq M.predicted among non-blacks MDRD (S/P/Bld) [Vol rate/Area] 98 mL/min/{1.73_m2} Normal >60 [facility] Comment on above: Result Comment: Non- GFR Calc Performed By: #### L 100.0100, L500.2500 ####[facility] [address] [place], [address] Glucose [Mass/Vol] 212 mg/dL High 74-106 [facility] Comment on above: Result Comment: Gluc ose result greater than or equal to 200 mg/dLsuggests DIABETES MELLITUS per A.D.A. criteria. Performed By: #### L 100.0100, L500.2500 ####[facility] [address] [place], [address] Potassium [Moles/Vol] 4.0 mmol/L Normal 3.5-5.1 [facility] Comment on above: Performed By: #### L 100.0100, L500.2500 ####[facility] [address] [place], [address] Sodium [Moles/Vol] 137 mmol/L Normal 136-145 [facility] Comment on above: Performed By: #### L 100.0100, L500.2500 ####[facility] [address] [place], [address] Urea nitrogen [Mass/Vol] 15 mg/dL Normal 7-18 [facility] Comment on above: Performed By: #### L 100.0100, L500.2500 ####[facility] [address] [place], [address] Bedside Glucoseon 03-07-2024 FINGERSTICK GLU 287 mg/dL High 74-106 [facility] Comment on above: Result Comment: ESPERANZA GEMENT OF PATIENT CARE PER NURSING PROTOCOL Performed By: #### L 501.080 ####[facility] [address] [place], [address] FINGERSTICK GLU 182 mg/dL High 74-106 [facility] Comment on above: Result Comment: ESPERANZA GEMENT OF PATIENT CARE PER NURSING PROTOCOL Performed By: #### L 501.080 ####[facility] [address] [place], [address] CBC W/Diff, Automatedon 02-19 Absolute Lymph 2.79 X10 3/uL Normal 0.83-4.51 [facility] Comment on above: Performed By: #### L 100.0100, L500.2500 ####[facility] [address] [place], [address] Absolute Neut 4.6 X10 3/uL Normal 2.0-7.7 [facility] Comment on above: Performed By: #### L 100.0100, L500.2500 ####[facility] [address] [place], [address] Basophils/100 WBC (Bld) 0.3 % Normal 0-1 [facility] Comment on above: Performed By: #### L 100.0100, L500.2500 ####[facility] [address] [place], [address] Eosinophils/100 WBC (Bld) 0.3 % Normal 0-5 [facility] Comment on above: Performed By: #### L 100.0100, L500.2500 ####[facility] [address] [place], [address] Erythrocyte distribution width (RBC) [Ratio] 15.9 % High 11.6-14.6 [facility] Comment on above: Performed By: #### L 100.0100, L500.2500 ####[facility] [address] [place], [address] Hematocrit (Bld) [Volume fraction] 36.8 % Low 37-47 [facility] Comment on above: Performed By: #### L 100.0100, L500.2500 ####[facility] [address] [place], [address] Hemoglobin (Bld) [Mass/Vol] 11.2 g/dL Low 12.0-15.0 [facility] Comment on above: Performed By: #### L 100.0100, L500.2500 ####[facility] [address] [place], [address] IG% 1.300 High 0.0-0.9 [facility] Comment on above: Result Comment: IG% - Immature Granulocytes (promyelocytes, myelocytes andmetamyelocytes) > 1% indicates that a LEFT SHIFT is Present. Performed By: #### L 100.0100, L500.2500 ####[facility] [address] [place], [address] Lymphocytes/100 WBC (Bld) 35.2 % Normal 19-41 [facility] Comment on above: Performed By: #### L 100.0100, L500.2500 ####[facility] [address] [place], [address] MCH (RBC) [Entitic mass] 26.2 pg Low 27.0-32.0 [facility] Comment on above: Performed By: #### L 100.0100, L500.2500 ####[facility] [address] [place], [address] MCHC (RBC) [Mass/Vol] 30.4 g/dL Low 32-36 [facility] Comment on above: Performed By: #### L 100.0100, L500.2500 ####[facility] [address] [place], [address] MCV (RBC) [Entitic vol] 86.2 fL Normal 81-99 [facility] Comment on above: Performed By: #### L 100.0100, L500.2500 ####[facility] [address] [place], [address] Monocytes/100 WBC (Bld) 5.0 % Normal 0-10 [facility] Comment on above: Performed By: #### L 100.0100, L500.2500 ####[facility] [address] [place], [address] Neutrophils/100 WBC (Bld) 57.9 % Normal 47-70 [facility] Comment on above: Performed By: #### L 100.0100, L500.2500 ####[facility] [address] [place], [address] Nucleated RBC (Bld) [#/Vol] 0 10*3/uL Normal 0-5 [facility] Comment on above: Performed By: #### L 100.0100, L500.2500 ####[facility] [address] [place], [address] Platelet mean volume (Bld) [Entitic vol] 10.5 fL Normal 6.2-12.0 [facility] Comment on above: Performed By: #### L 100.0100, L500.2500 ####[facility] [address] [place], [address] Platelets (Bld) [#/Vol] 190 10*3/uL Normal 150-450 [facility] Comment on above: Performed By: #### L 100.0100, L500.2500 ####[facility] [address] [place], [address] RBC (Bld) [#/Vol] 4.27 10*6/uL Normal 4.2-5.4 [facility] Comment on above: Performed By: #### L 100.0100, L500.2500 ####[facility] [address] [place], [address] RDW SD 49.9 fl High 35.1-43.9 [facility] Comment on above: Performed By: #### L 100.0100, L500.2500 ####[facility] [address] [place], [address] WBC (Bld) [#/Vol] 7.9 10*3/uL Normal 4.4-11.0 [facility] Comment on above: Performed By: #### L 100.0100, L500.2500 ####[facility] [address] [place], [address] Discharge Instructionon 02-19 Discharge Instruction Normal [facility] Urine Cultureon 03-07-2024 URC Culture exhibits no growth. Normal [facility] Comment on above: Performed By: #### M 100.2200 ####[facility] [address] [place], [address] Basic Metabolic Profile (BMP )on 03-06-2024 BUN/CRE 22.2 RATIO High 10-20 [facility] Comment on above: Performed By: #### L 500.2500, L100.0100 ####[facility] [address] [place], [address] CA,Total 8.7 mg/dL Normal 8.5-10.1 [facility] Comment on above: Performed By: #### L 500.2500, L100.0100 ####[facility] [address] [place], [address] Chloride [Moles/Vol] 106 mmol/L Normal 98-107 [facility] Comment on above: Performed By: #### L 500.2500, L100.0100 ####[facility] [address] [place], [address] CO2 [Moles/Vol] 29.0 mmol/L Normal 21.0-32.0 [facility] Comment on above: Performed By: #### L 500.2500, L100.0100 ####[facility] [address] [place], [address] Creatinine [Mass/Vol] 0.68 mg/dL Normal 0.55-1.02 [facility] Comment on above: Result Comment: The validity of the calculated GFR GFRAA in patients over70 years has not been determined. Clinical correlation isessential. Performed By: #### L 500.2500, L100.0100 ####[facility] [address] [place], [address] ECRCL 104.44 ml/min Normal [facility] Comment on above: Performed By: #### L 500.2500, L100.0100 ####[facility] [address] [place], [address] EST GFR - AA 115 mL/min Normal >60 [facility] Comment on above: Result Comment: Afri can [place] GFR Calc Performed By: #### L 500.2500, L100.0100 ####[facility] [address] [place], [address] GAP 3 Low 5-15 [facility] Comment on above: Performed By: #### L 500.2500, L100.0100 ####[facility] [address] [place], [address] GFR/1.73 sq M.predicted among non-blacks MDRD (S/P/Bld) [Vol rate/Area] 95 mL/min/{1.73_m2} Normal >60 [facility] Comment on above: Result Comment: Non- GFR Calc Performed By: #### L 500.2500, L100.0100 ####[facility] [address] [place], [address] Glucose [Mass/Vol] 72 mg/dL Low 74-106 [facility] Comment on above: Performed By: #### L 500.2500, L100.0100 ####[facility] [address] [place], [address] Potassium [Moles/Vol] 3.7 mmol/L Normal 3.5-5.1 [facility] Comment on above: Performed By: #### L 500.2500, L100.0100 ####[facility] [address] [place], [address] Sodium [Moles/Vol] 138 mmol/L Normal 136-145 [facility] Comment on above: Performed By: #### L 500.2500, L100.0100 ####[facility] [address] [place], [address] Urea nitrogen [Mass/Vol] 15 mg/dL Normal 7-18 [facility] Comment on above: Performed By: #### L 500.2500, L100.0100 ####[facility] [address] [place], [address] Bedside Glucoseon 03-06-2024 FINGERSTICK GLU 309 mg/dL High 74-106 [facility] Comment on above: Result Comment: ESPERANZA VILLALTA OF PATIENT CARE PER NURSING PROTOCOL Performed By: #### L 501.080 ####[facility] [address] [place], [address] FINGERSTICK GLU 255 mg/dL High 74-106 [facility] Comment on above: Result Comment: ESPERANZA GEMENT OF PATIENT CARE PER NURSING PROTOCOL Performed By: #### L 501.080 ####[facility] [address] [place], [address] FINGERSTICK GLU 118 mg/dL High 74-106 [facility] Comment on above: Result Comment: ESPERANZA GEMENT OF PATIENT CARE PER NURSING PROTOCOL Performed By: #### L 501.080 ####[facility] [address] [place], [address] FINGERSTICK GLU 69 mg/dL Low 74-106 [facility] Comment on above: Result Comment: ESPERANZA GEMENT OF PATIENT CARE PER NURSING PROTOCOL Performed By: #### L 501.080 ####[facility] [address] [place], [address] CBC W/Diff, Automatedon 02-19 Absolute Lymph 2.59 X10 3/uL Normal 0.83-4.51 [facility] Comment on above: Performed By: #### L 500.2500, L100.0100 ####[facility] [address] [place], [address] Absolute Neut 3.5 X10 3/uL Normal 2.0-7.7 [facility] Comment on above: Performed By: #### L 500.2500, L100.0100 ####[facility] [address] [place], [address] Basophils/100 WBC (Bld) 0.8 % Normal 0-1 [facility] Comment on above: Performed By: #### L 500.2500, L100.0100 ####[facility] [address] [place], [address] Eosinophils/100 WBC (Bld) 0.8 % Normal 0-5 [facility] Comment on above: Performed By: #### L 500.2500, L100.0100 ####[facility] [address] [place], [address] Erythrocyte distribution width (RBC) [Ratio] 15.7 % High 11.6-14.6 [facility] Comment on above: Performed By: #### L 500.2500, L100.0100 ####[facility] [address] [place], [address] Hematocrit (Bld) [Volume fraction] 36.7 % Low 37-47 [facility] Comment on above: Performed By: #### L 500.2500, L100.0100 ####[facility] [address] [place], [address] Hemoglobin (Bld) [Mass/Vol] 11.2 g/dL Low 12.0-15.0 [facility] Comment on above: Performed By: #### L 500.2500, L100.0100 ####[facility] [address] [place], [address] IG% 1.400 High 0.0-0.9 [facility] Comment on above: Result Comment: IG% - Immature Granulocytes (promyelocytes, myelocytes andmetamyelocytes) > 1% indicates that a LEFT SHIFT is Present. Performed By: #### L 500.2500, L100.0100 ####[facility] [address] [place], [address] Lymphocytes/100 WBC (Bld) 39.2 % Normal 19-41 [facility] Comment on above: Performed By: #### L 500.2500, L100.0100 ####[facility] [address] [place], [address] MCH (RBC) [Entitic mass] 26.4 pg Low 27.0-32.0 [facility] Comment on above: Performed By: #### L 500.2500, L100.0100 ####[facility] [address] [place], [address] MCHC (RBC) [Mass/Vol] 30.5 g/dL Low 32-36 [facility] Comment on above: Performed By: #### L 500.2500, L100.0100 ####[facility] [address] [place], [address] MCV (RBC) [Entitic vol] 86.4 fL Normal 81-99 [facility] Comment on above: Performed By: #### L 500.2500, L100.0100 ####[facility] [address] [place], [address] Monocytes/100 WBC (Bld) 5.6 % Normal 0-10 [facility] Comment on above: Performed By: #### L 500.2500, L100.0100 ####[facility] [address] [place], [address] Neutrophils/100 WBC (Bld) 52.2 % Normal 47-70 [facility] Comment on above: Performed By: #### L 500.2500, L100.0100 ####[facility] [address] [place], [address] Nucleated RBC (Bld) [#/Vol] 0 10*3/uL Normal 0-5 [facility] Comment on above: Performed By: #### L 500.2500, L100.0100 ####[facility] [address] [place], [address] Platelet mean volume (Bld) [Entitic vol] 10.6 fL Normal 6.2-12.0 [facility] Comment on above: Performed By: #### L 500.2500, L100.0100 ####[facility] [address] [place], [address] Platelets (Bld) [#/Vol] 180 10*3/uL Normal 150-450 [facility] Comment on above: Performed By: #### L 500.2500, L100.0100 ####[facility] [address] [place], [address] RBC (Bld) [#/Vol] 4.25 10*6/uL Normal 4.2-5.4 [facility] Comment on above: Performed By: #### L 500.2500, L100.0100 ####[facility] [address] [place], [address] RDW SD 49.4 fl High 35.1-43.9 [facility] Comment on above: Performed By: #### L 500.2500, L100.0100 ####[facility] [address] [place], [address] WBC (Bld) [#/Vol] 6.6 10*3/uL Normal 4.4-11.0 [facility] Comment on above: Performed By: #### L 500.2500, L100.0100 ####[facility] [address] [place], [address] Urinalysis, Completeon 03-06 BACTERIA 1+ /hpf Normal None Seen [facility] Comment on above: Order Comment: CLEAN CATCH Performed By: #### L 400.0001 ####[facility] [address] [place], [address] CAST,FINE GRAN 0 SEEN Normal 0-5 [facility] Comment on above: Order Comment: CLEAN CATCH Performed By: #### L 400.0001 ####[facility] [address] [place], [address] RBC > 100 SEEN Normal 0-5 [facility] Comment on above: Order Comment: CLEAN CATCH Performed By: #### L 400.0001 ####[facility] [address] [place], [address] WBC 50-100 SEEN Normal 0-5 [facility] Comment on above: Order Comment: CLEAN CATCH Performed By: #### L 400.0001 ####[facility] [address] [place], [address] BILIRUBIN URINE Negative Normal Negative [facility] Comment on above: Order Comment: CLEAN CATCH Performed By: #### L 400.0001 ####[facility] [address] [place], [address] Clarity (U) Cloudy Normal Clear [facility] Comment on above: Order Comment: CLEAN CATCH Performed By: #### L 400.0001 ####[facility] [address] [facility] [address] Color (U) Yellow Normal Yellow [facility] Comment on above: Order Comment: CLEAN CATCH Performed By: #### L 400.0001 ####[facility] [address] [facility] [address] GLUCOSE, UR Normal Normal Normal [facility] Comment on above: Order Comment: CLEAN CATCH Performed By: #### L 400.0001 ####[facility] [address] [facility] [address] KETONE UR Negative Normal Negative [facility] Comment on above: Order Comment: CLEAN CATCH Performed By: #### L 400.0001 ####[facility] [address] [facility] [address] LEUK ESTERASE 500 /ul Abnormal Negative [facility] Comment on above: Order Comment: CLEAN CATCH Performed By: #### L 400.0001 ####[facility] [address] [place], [address] Nitrite Ql (U) Negative Normal Negative [facility] Comment on above: Order Comment: CLEAN CATCH Performed By: #### L 400.0001 ####[facility] [address] [place], [address] OCCULT BLOOD-UR 150 /ul Abnormal Negative [facility] Comment on above: Order Comment: CLEAN CATCH Performed By: #### L 400.0001 ####[facility] [address] [place], [address] pH UR 6.0 Normal 5.0 - 8.0 [facility] Comment on above: Order Comment: CLEAN CATCH Performed By: #### L 400.0001 ####[facility] [address] [place], [address] PROT DIPSTX Negative Normal Negative [facility] Comment on above: Order Comment: CLEAN CATCH Performed By: #### L 400.0001 ####[facility] [address] [place], [address] SP.GR. DIPSTX 1.025 Normal 1.002-1.030 [facility] Comment on above: Order Comment: CLEAN CATCH Performed By: #### L 400.0001 ####[facility] [address] [place], [address] UROBILI Normal Normal Normal [facility] Comment on above: Order Comment: CLEAN CATCH Performed By: #### L 400.0001 ####[facility] [address] [place], [address] EPI,SQUAMOUS 0 SEEN Normal 5-10 [facility] Comment on above: Order Comment: CLEAN CATCH Performed By: #### L 400.0001 ####[facility] [address] [place], [address] Mucus Ql (Urine sed) 0 SEEN Normal [facility] Comment on above: Order Comment: CLEAN CATCH Performed By: #### L 400.0001 ####[facility] [address] [place], [address] Bedside Glucoseon 03-05-2024 FINGERSTICK GLU 223 mg/dL High 74-106 [facility] Comment on above: Result Comment: ESPERANZA VILLALTA OF PATIENT CARE PER NURSING PROTOCOL Performed By: #### L 501.080 ####[facility] [address] [place], [address] FINGERSTICK GLU 257 mg/dL High 74-106 [facility] Comment on above: Result Comment: ESPERANZA GEMENT OF PATIENT CARE PER NURSING PROTOCOL Performed By: #### L 501.080 ####[facility] [address] [place], [address] FINGERSTICK GLU 189 mg/dL High 74-106 [facility] Comment on above: Result Comment: ESPERANZA GEMENT OF PATIENT CARE PER NURSING PROTOCOL Performed By: #### L 501.080 ####[facility] [address] [place], [address] FINGERSTICK GLU 138 mg/dL High -106 [facility] Comment on above: Result Comment: ESPERANZA GEMENT OF PATIENT CARE PER NURSING PROTOCOL Performed By: #### L 501.080 ####[facility] [address] [place], [address] FINGERSTICK GLU 272 mg/dL High [address] [place] [address] Comment on above: Result Comment: ESPERANZA GEMENT OF PATIENT CARE PER NURSING PROTOCOL Performed By: #### L 501.080 ####[facility] [address] [place], [address] CBC W/Diff, Automatedon 08- Absolute Lymph 1.15 X10 3/uL Normal 0.83-4.51 [facility] Comment on above: Performed By: #### L 501.9520, L501.5200, L501.9985, L500.4050, L100.0100 ####[facility] [address] [place], [address] Absolute Neut 4.6 X10 3/uL Normal 2.0-7.7 [facility] [facility] Comment on above: Performed By: #### L 501.9520, L501.5200, L501.9985, L500.4050, L100.0100 ####[facility] [address] [place], [address] Basophils/100 WBC (Bld) 1.1 % High 0-1 [facility] Comment on above: Performed By: #### L 501.9520, L501.5200, L501.9985, L500.4050, L100.0100 ####[facility] [address] [place], [address] Eosinophils/100 WBC (Bld) 0.2 % Normal 0-5 [facility] Comment on above: Performed By: #### L 501.9520, L501.5200, L501.9985, L500.4050, L100.0100 ####[facility] [address] [place], [address] Erythrocyte distribution width (RBC) [Ratio] 15.9 % High 11.6-14.6 [facility] Comment on above: Performed By: #### L 501.9520, L501.5200, L501.9985, L500.4050, L100.0100 ####[facility] [address] [place], [address] Hematocrit (Bld) [Volume fraction] 38.8 % Normal 37-47 [facility] Comment on above: Performed By: #### L 501.9520, L501.5200, L501.9985, L500.4050, L100.0100 ####[facility] [address] [place], [address] Hemoglobin (Bld) [Mass/Vol] 11.8 g/dL Low 12.0-15.0 [facility] Comment on above: Performed By: #### L 501.9520, L501.5200, L501.9985, L500.4050, L100.0100 ####[facility] [address] [place], [address] IG% 1.700 High 0.0-0.9 [facility] Comment on above: Result Comment: IG% - Immature Granulocytes (promyelocytes, myelocytes andmetamyelocytes) > 1% indicates that a LEFT SHIFT is Present. Performed By: #### L 501.9520, L501.5200, L501.9985, L500.4050, L100.0100 ####[facility] [address] [place], [address] Lymphocytes/100 WBC (Bld) 18.0 % Low 19-41 [facility] Comment on above: Performed By: #### L 501.9520, L501.5200, L501.9985, L500.4050, L100.0100 ####[facility] [address] [place], [address] MCH (RBC) [Entitic mass] 26.5 pg Low 27.0-32.0 [facility] Comment on above: Performed By: #### L 501.9520, L501.5200, L501.9985, L500.4050, L100.0100 ####[facility] [address] [place], [address] MCHC (RBC) [Mass/Vol] 30.4 g/dL Low 32-36 [facility] Comment on above: Performed By: #### L 501.9520, L501.5200, L501.9985, L500.4050, L100.0100 ####[facility] [address] [place], [address] MCV (RBC) [Entitic vol] 87.0 fL Normal 81-99 [facility] Comment on above: Performed By: #### L 501.9520, L501.5200, L501.9985, L500.4050, L100.0100 ####[facility] [address] [place], [address] Monocytes/100 WBC (Bld) 7.2 % Normal 0-10 [facility] Comment on above: Performed By: #### L 501.9520, L501.5200, L501.9985, L500.4050, L100.0100 ####[facility] [address] [place], [address] Neutrophils/100 WBC (Bld) 71.8 % High 47-70 [facility] Comment on above: Performed By: #### L 501.9520, L501.5200, L501.9985, L500.4050, L100.0100 ####[facility] [address] [place], [address] Nucleated RBC (Bld) [#/Vol] 0 10*3/uL Normal 0-5 [facility] Comment on above: Performed By: #### L 501.9520, L501.5200, L501.9985, L500.4050, L100.0100 ####[facility] [address] [place], [address] Platelet mean volume (Bld) [Entitic vol] 10.5 fL Normal 6.2-12.0 [facility] Comment on above: Performed By: #### L 501.9520, L501.5200, L501.9985, L500.4050, L100.0100 ####[facility] [address] [place], [address] Platelets (Bld) [#/Vol] 180 10*3/uL Normal 150-450 [facility] Comment on above: Performed By: #### L 501.9520, L501.5200, L501.9985, L500.4050, L100.0100 ####[facility] [address] [place], [address] RBC (Bld) [#/Vol] 4.46 10*6/uL Normal 4.2-5.4 [facility] Comment on above: Performed By: #### L 501.9520, L501.5200, L501.9985, L500.4050, L100.0100 ####[facility] [address] [place], [address] RDW SD 49.7 fl High 35.1-43.9 [facility] Comment on above: Performed By: #### L 501.9520, L501.5200, L501.9985, L500.4050, L100.0100 ####[facility] [address] [place], [address] WBC (Bld) [#/Vol] 6.4 10*3/uL Normal 4.4-11.0 [facility] Comment on above: Performed By: #### L 501.9520, L501.5200, L501.9985, L500.4050, L100.0100 ####[facility] [address] [place], [address] Comprehensive Metabolic [facility] 03-05-2024 Albumin [Mass/Vol] 2.7 g/dL Low 3.2-5.0 [facility] Comment on above: Performed By: #### L 501.9520, L501.5200, L501.9985, L500.4050, L100.0100 ####[facility] [address] [place], [address] Albumin/Globulin [Mass ratio] 0.5 {ratio} Low 0.9-2.4 [facility] Comment on above: Performed By: #### L 501.9520, L501.5200, L501.9985, L500.4050, L100.0100 ####[facility] [address] [place], [address] ALK P 164 U/L High 45-117 [facility] Comment on above: Performed By: #### L 501.9520, L501.5200, L501.9985, L500.4050, L100.0100 ####[facility] [address] [place], [address] ALT [Catalytic activity/Vol] 50 U/L Normal 13-56 [facility] Comment on above: Performed By: #### L 501.9520, L501.5200, L501.9985, L500.4050, L100.0100 ####[facility] [address] [place], [address] AST [Catalytic activity/Vol] 75 U/L High 15-37 [facility] Comment on above: Performed By: #### L 501.9520, L501.5200, L501.9985, L500.4050, L100.0100 ####[facility] [address] [place], [address] Bilirubin [Mass/Vol] 0.40 mg/dL Normal 0.20-1.00 [facility] Comment on above: Result Comment: For patients on eltrombopag therapy, use of Dimension [place] TBIL is not recommended. Performed By: #### L 501.9520, L501.5200, L501.9985, L500.4050, L100.0100 ####[facility] [address] [place], [address] BUN/CRE 18.7 RATIO Normal 10-20 [facility] Comment on above: Performed By: #### L 501.9520, L501.5200, L501.9985, L500.4050, L100.0100 ####[facility] [address] [place], [address] CA,Total 8.8 mg/dL Normal 8.5-10.1 [facility] Comment on above: Performed By: #### L 501.9520, L501.5200, L501.9985, L500.4050, L100.0100 ####[facility] [address] [place], [address] Chloride [Moles/Vol] 102 mmol/L Normal 98-107 [facility] Comment on above: Performed By: #### L 501.9520, L501.5200, L501.9985, L500.4050, L100.0100 ####[facility] [address] [place], [address] CO2 [Moles/Vol] 30.0 mmol/L Normal 21.0-32.0 [facility] Comment on above: Performed By: #### L 501.9520, L501.5200, L501.9985, L500.4050, L100.0100 ####[facility] [address] [place], [address] Creatinine [Mass/Vol] 0.70 mg/dL Normal 0.55-1.02 [facility] Comment on above: Result Comment: The validity of the calculated GFR GFRAA in patients over70 years has not been determined. Clinical correlation isessential. Performed By: #### L 501.9520, L501.5200, L501.9985, L500.4050, L100.0100 ####[facility] [address] [place], [address] ECRCL 101.68 ml/min Normal [facility] Comment on above: Performed By: #### L 501.9520, L501.5200, L501.9985, L500.4050, L100.0100 ####[facility] [address] [place], [address] EST GFR - AA 112 mL/min Normal >60 [facility] Comment on above: Result Comment: Afri can Citizen [place] GFR Calc Performed By: #### L 501.9520, L501.5200, L501.9985, L500.4050, L100.0100 ####[facility] [address] [place], [address] GAP 3 Low 5-15 [facility] Comment on above: Performed By: #### L 501.9520, L501.5200, L501.9985, L500.4050, L100.0100 ####[facility] [address] [place], [address] GFR/1.73 sq M.predicted among non-blacks MDRD (S/P/Bld) [Vol rate/Area] 92 mL/min/{1.73_m2} Normal >60 [facility] Comment on above: Result Comment: Non- GFR Calc Performed By: #### L 501.9520, L501.5200, L501.9985, L500.4050, L100.0100 ####[facility] [address] [place], [address] Globulin (S) [Mass/Vol] 5.6 g/dL High 2.2-4.2 [facility] Comment on above: Performed By: #### L 501.9520, L501.5200, L501.9985, L500.4050, L100.0100 ####[facility] [address] [place], [address] Glucose [Mass/Vol] 158 mg/dL High 74-106 [facility] Comment on above: Result Comment: Fast ing Glucose result greater than or equal to 126 mg/dLsuggests DIABETES MELLITUS per A.D.A. criteria. Performed By: #### L 501.9520, L501.5200, L501.9985, L500.4050, L100.0100 ####[facility] [address] [place], [address] Potassium [Moles/Vol] 4.4 mmol/L Normal 3.5-5.1 [facility] Comment on above: Performed By: #### L 501.9520, L501.5200, L501.9985, L500.4050, L100.0100 ####[facility] [address] [place], [address] Sodium [Moles/Vol] 135 mmol/L Low 136-145 [facility] Comment on above: Performed By: #### L 501.9520, L501.5200, L501.9985, L500.4050, L100.0100 ####[facility] [address] [place], [address] T PROT 8.3 g/dL High 6.4-8.2 [facility] Comment on above: Performed By: #### L 501.9520, L501.5200, L501.9985, L500.4050, L100.0100 ####[facility] [address] [place], [address] Urea nitrogen [Mass/Vol] 13 mg/dL Normal 7-18 [facility] Comment on above: Performed By: #### L 501.9520, L501.5200, L501.9985, L500.4050, L100.0100 ####[facility] [address] [place], [address] Hemoglobin A1con 03-05-2024 HbA1c (Bld) [Mass fraction] 12.8 % High 3.8-5.6 [facility] Comment on above: Result Comment: Norm al < 5.7 % Prediabetic 5.7 - 6.4 % Diabetic >or= 6.5 % Please note range changes. Performed By: #### L 501.9520, L501.5200, L501.9985, L500.4050, L100.0100 ####[facility] [address] [place], [address] Magnesiumon 03-05-2024 Magnesium [Mass/Vol] 1.8 mg/dL Normal 1.6-2.6 [facility] Comment on above: Performed By: #### L 501.9520, L501.5200, L501.9985, L500.4050, L100.0100 ####[facility] [address] [place], [address] Thyroid Stim Hormone (TSH)on 03-05-2024 TSH 5.970 uIU/mL High 0.358-3.740 [facility] Comment on above: Performed By: #### L 501.9520, L501.5200, L501.9985, L500.4050, L100.0100 ####[facility] [address] [place], [address] Urine Cultureon 03-05-2024 URC Culture exhibits no growth. Normal [facility] Comment on above: Performed By: #### M 100.2200 ####[facility] [address] [place], [address] Abdomen/Pelvis without Conto n 03-04-2024 Abdomen/Pelvis without Cont Normal [facility] BNP,B-Type NATRIURETIC PEPTI Lucila 03-04-2024 Natriuretic peptide B (Bld) [Mass/Vol] 24.0 pg/mL Normal 0-100 [facility] Comment on above: Performed By: #### L 300.3900, L501.3620, L300.4700, L503.6005, L509.7000, L501.6710, L300.8000, L504.2610, L503.6620 ####[facility] [address] [place], [place], [address] Basic Metabolic Profile (BMP )on 03-04-2024 BUN/CRE 12.6 RATIO Normal 10-20 [facility] Comment on above: Performed By: #### L 500.2500, L503.6005, L501.3620, L500.3400, L100.0500, L501.2450 ####[facility] [address] [place], [address] CA,Total 9.4 mg/dL Normal 8.5-10.1 [facility] Comment on above: Performed By: #### L 500.2500, L503.6005, L501.3620, L500.3400, L100.0500, L501.2450 ####[facility] [address] [place], [address] Chloride [Moles/Vol] 95 mmol/L Low 98-107 [facility] Comment on above: Performed By: #### L 500.2500, L503.6005, L501.3620, L500.3400, L100.0500, L501.2450 ####[facility] [address] [place], [address] CO2 [Moles/Vol] 29.0 mmol/L Normal 21.0-32.0 [facility] Comment on above: Performed By: #### L 500.2500, L503.6005, L501.3620, L500.3400, L100.0500, L501.2450 ####[facility] [address] [place], [address] Creatinine [Mass/Vol] 0.95 mg/dL Normal 0.55-1.02 [facility] Comment on above: Result Comment: The validity of the calculated GFR GFRAA in patients over70 years has not been determined. Clinical correlation isessential. Performed By: #### L 500.2500, L503.6005, L501.3620, L500.3400, L100.0500, L501.2450 ####[facility] [address] [place], [address] ECRCL 74.68 ml/min Normal [facility] Comment on above: Performed By: #### L 500.2500, L503.6005, L501.3620, L500.3400, L100.0500, L501.2450 ####[facility] [address] [place], [address] EST GFR - AA 78 mL/min Normal >60 [facility] Comment on above: Result Comment: Afri can [place] GFR Calc Performed By: #### L 500.2500, L503.6005, L501.3620, L500.3400, L100.0500, L501.2450 ####[facility] [address] [place], [address] GAP 6 Normal 5-15 [facility] Comment on above: Performed By: #### L 500.2500, L503.6005, L501.3620, L500.3400, L100.0500, L501.2450 ####[facility] [address] [place], [address] GFR/1.73 sq M.predicted among non-blacks MDRD (S/P/Bld) [Vol rate/Area] 65 mL/min/{1.73_m2} Normal >60 [facility] Comment on above: Result Comment: Non- GFR Calc Performed By: #### L 500.2500, L503.6005, L501.3620, L500.3400, L100.0500, L501.2450 ####[facility] [address] [place], [address] Glucose [Mass/Vol] 329 mg/dL High 74-106 [facility] Comment on above: Result Comment: Gluc ose result greater than or equal to 200 mg/dLsuggests DIABETES MELLITUS per A.D.A. criteria. Performed By: #### L 500.2500, L503.6005, L501.3620, L500.3400, L100.0500, L501.2450 ####[facility] [address] [place], [address] Potassium [Moles/Vol] 4.1 mmol/L Normal 3.5-5.1 [facility] Comment on above: Performed By: #### L 500.2500, L503.6005, L501.3620, L500.3400, L100.0500, L501.2450 ####[facility] [address] [place], [address] Sodium [Moles/Vol] 130 mmol/L Low 136-145 [facility] Comment on above: Performed By: #### L 500.2500, L503.6005, L501.3620, L500.3400, L100.0500, L501.2450 ####[facility] [address] [place], [address] Urea nitrogen [Mass/Vol] 12 mg/dL Normal 7-18 [facility] Comment on above: Performed By: #### L 500.2500, L503.6005, L501.3620, L500.3400, L100.0500, L501.2450 ####[facility] [address] [place], [address] Bedside Glucoseon 03-04-2024 FINGERSTICK GLU 333 mg/dL High 74-106 [facility] Comment on above: Result Comment: ESPERANZA VILLALTA OF PATIENT CARE PER NURSING PROTOCOL Performed By: #### L 501.080 ####[facility] [address] [place], [address] CBC-Complete Blood Cnt No Di ffon 03-04-2024 Erythrocyte distribution width (RBC) [Ratio] 16.1 % High 11.6-14.6 [facility] Comment on above: Performed By: #### L 500.2500, L503.6005, L501.3620, L500.3400, L100.0500, L501.2450 ####[facility] [address] [place], [address] Hematocrit (Bld) [Volume fraction] 42.7 % Normal 37-47 [facility] Comment on above: Performed By: #### L 500.2500, L503.6005, L501.3620, L500.3400, L100.0500, L501.2450 ####[facility] [address] [place], [address] Hemoglobin (Bld) [Mass/Vol] 13.5 g/dL Normal 12.0-15.0 [facility] Comment on above: Performed By: #### L 500.2500, L503.6005, L501.3620, L500.3400, L100.0500, L501.2450 ####[facility] [address] [place], [address] MCH (RBC) [Entitic mass] 26.8 pg Low 27.0-32.0 [facility] Comment on above: Performed By: #### L 500.2500, L503.6005, L501.3620, L500.3400, L100.0500, L501.2450 ####[facility] [address] [place], [address] MCHC (RBC) [Mass/Vol] 31.6 g/dL Low 32-36 [facility] Comment on above: Performed By: #### L 500.2500, L503.6005, L501.3620, L500.3400, L100.0500, L501.2450 ####[facility] [address] [place], [address] MCV (RBC) [Entitic vol] 84.7 fL Normal 81-99 [facility] Comment on above: Performed By: #### L 500.2500, L503.6005, L501.3620, L500.3400, L100.0500, L501.2450 ####[facility] [address] [place], [address] Platelet mean volume (Bld) [Entitic vol] 10.9 fL Normal 6.2-12.0 [facility] Comment on above: Performed By: #### L 500.2500, L503.6005, L501.3620, L500.3400, L100.0500, L501.2450 ####[facility] [address] [place], [address] Platelets (Bld) [#/Vol] 231 10*3/uL Normal 150-450 [facility] Comment on above: Performed By: #### L 500.2500, L503.6005, L501.3620, L500.3400, L100.0500, L501.2450 ####[facility] [address] [place], [address] RBC (Bld) [#/Vol] 5.04 10*6/uL Normal 4.2-5.4 [facility] Comment on above: Performed By: #### L 500.2500, L503.6005, L501.3620, L500.3400, L100.0500, L501.2450 ####[facility] [address] [place], [address] RDW SD 48.9 fl High 35.1-43.9 [facility] Comment on above: Performed By: #### L 500.2500, L503.6005, L501.3620, L500.3400, L100.0500, L501.2450 ####[facility] [address] [place], [address] WBC (Bld) [#/Vol] 7.4 10*3/uL Normal 4.4-11.0 [facility] Comment on above: Performed By: #### L 500.2500, L503.6005, L501.3620, L500.3400, L100.0500, L501.2450 ####[facility] [address] [place], [address] CPK Total, Creatine Kinaseon 03-04-2024 CPK TOTAL 135 U/L Normal 26-192 [facility] Comment on above: Performed By: #### L 300.3900, L501.3620, L300.4700, L503.6005, L509.7000, L501.6710, L300.8000, L504.2610, L503.6620 ####[facility] [address] [place], [place], [address] CPK TOTAL 148 U/L Normal 26-192 [facility] Comment on above: Performed By: #### L 500.2500, L503.6005, L501.3620, L500.3400, L100.0500, L501.2450 ####[facility] [address] [place], [address] CRPon 03-04-2024 C-REACTIVE PROT 28.80 mg/L High 0.0-3.0 [facility] Comment on above: Result Comment: C-Re active Protein (CRP) provides useful information for thediagnosis, therapy and monitoring of inflammatory processesand associated diseases. For the evaluation of Relative Riskfor Cardiovascular Disease, a High Sensitivity CRP (HSCRP)should be ordered. Performed By: #### L 300.3900, L501.3620, L300.4700, L503.6005, L509.7000, L501.6710, L300.8000, L504.2610, L503.6620 ####[facility] [address] [place], [place], [address] Chest 1 View (Portable)on Chest 1 View (Portable) Normal [facility] D-Dimer Quantitative (DVT/PE )on 03-04-2024 D-DIMER QUANT 0.39 FEU/ug/m Normal 0.27-0.49 [facility] Comment on above: Result Comment: NORM AL D-Dimer level (<0.50) indicates no DVT or PE. Performed By: #### L 300.3900, L501.3620, L300.4700, L503.6005, L509.7000, L501.6710, L300.8000, L504.2610, L503.6620 ####[facility] [address] [place], [address] Emergency Department Summary on 03-04-2024 Emergency Department Summary Normal [facility] Fibrinogenon 03-04-2024 FIBRINOGEN 444 mg/dl Normal 203-444 [facility] Comment on above: Performed By: #### L 300.3900, L501.3620, L300.4700, L503.6005, L509.7000, L501.6710, L300.8000, L504.2610, L503.6620 ####[facility] [address] [place], [address] H AND P Exam - Hospitaliston 03-04-2024 H&P Exam - Hospitalist Normal [facility] LDHon 03-04-2024 LDH 199 U/L Normal 84-246 [facility] Comment on above: Performed By: #### L 300.3900, L501.3620, L300.4700, L503.6005, L509.7000, L501.6710, L300.8000, L504.2610, L503.6620 ####[facility] [address] [place], [address] Lactic Acidon 03-04-2024 Lactate [Moles/Vol] 1.6 mmol/L Normal 0.4-1.9 [facility] Comment on above: Order Comment: Y Performed By: #### L 300.3900, L501.3620, L300.4700, L503.6005, L509.7000, L501.6710, L300.8000, L504.2610, L503.6620 ####[facility] [address] [place], [address] Lactate [Moles/Vol] 1.5 mmol/L Normal 0.4-1.9 [facility] Comment on above: Order Comment: Y Performed By: #### L 500.2500, L503.6005, L501.3620, L500.3400, L100.0500, L501.2450 ####[facility] [address] [place], [address] Lipaseon 03-04-2024 Lipase [Catalytic activity/Vol] 59 U/L Normal 13-75 [facility] Comment on above: Result Comment: Ronnie mcleod note:LIPASE revised reference range effective 22.New Lipase methodology. Expected to produce lower valuesthan the previous assay method.NEW Reference Range: 13 - 75 U/L Performed By: #### L 500.2500, L503.6005, L501.3620, L500.3400, L100.0500, L501.2450 ####[facility] [address] [place], [address] Liver Profileon 03-04-2024 Albumin [Mass/Vol] 3.2 g/dL Normal 3.2-5.0 [facility] Comment on above: Performed By: #### L 500.2500, L503.6005, L501.3620, L500.3400, L100.0500, L501.2450 ####[facility] [address] [place], [address] ALK P 237 U/L High 45-117 [facility] Comment on above: Performed By: #### L 500.2500, L503.6005, L501.3620, L500.3400, L100.0500, L501.2450 ####[facility] [address] [place], [address] ALT [Catalytic activity/Vol] 43 U/L Normal 13-56 [facility] Comment on above: Performed By: #### L 500.2500, L503.6005, L501.3620, L500.3400, L100.0500, L501.2450 ####[facility] [address] [place], [address] AST [Catalytic activity/Vol] 57 U/L High 15-37 [facility] Comment on above: Performed By: #### L 500.2500, L503.6005, L501.3620, L500.3400, L100.0500, L501.2450 ####[facility] [address] [place], [address] Bilirubin [Mass/Vol] 0.90 mg/dL Normal 0.20-1.00 [facility] Comment on above: Result Comment: For patients on eltrombopag therapy, use of [facility] [place] TBIL is not recommended. Performed By: #### L 500.2500, L503.6005, L501.3620, L500.3400, L100.0500, L501.2450 ####[facility] [address] [place], [address] Bilirubin.direct [Mass/Vol] 0.25 mg/dL Normal 0.00-0.30 [facility] Comment on above: Performed By: #### L 500.2500, L503.6005, L501.3620, L500.3400, L100.0500, L501.2450 ####[facility] [address] [place], [address] Globulin (S) [Mass/Vol] 6.1 g/dL High 2.2-4.2 [facility] Comment on above: Performed By: #### L 500.2500, L503.6005, L501.3620, L500.3400, L100.0500, L501.2450 ####[facility] [address] [place], [address] T PROT 9.3 g/dL High 6.4-8.2 [facility] Comment on above: Performed By: #### L 500.2500, L503.6005, L501.3620, L500.3400, L100.0500, L501.2450 ####[facility] [address] [place], [address] M100.678on 03-04-2024 M100.678 Normal [facility] Comment on above: Performed By: #### M 100.678 ####[facility] [address] [place], [place], [id number] Procalcitoninon 03-04-2024 Procalcitonin 0.10 ng/mL High 0.00-0.09 [facility] Comment on above: Result Comment: A [...] ng/mL are obtained. Performed By: #### L 300.3900, L501.3620, L300.4700, L503.6005, L509.7000, L501.6710, L300.8000, L504.2610, L503.6620 ####[facility] [address] [place], [place], [id number] Prothrombin Time w/INRon INR Coag (PPP) [Relative time] 1.2 {INR} Normal [facility] Comment on above: Performed By: #### L 300.3900, L501.3620, L300.4700, L503.6005, L509.7000, L501.6710, L300.8000, L504.2610, L503.6620 ####[facility] [address] [facility] [facility] [address] [place], [place], [id number] PT Coag (PPP) [Time] 15.3 s High 11.7-14.9 [facility] Comment on above: Performed By: #### L 300.3900, L501.3620, L300.4700, L503.6005, L509.7000, L501.6710, L300.8000, L504.2610, L503.6620 ####[facility] [address] [place], [address] Urinalysis, Completeon 03-04 EPI,SQUAMOUS 5-10 SEEN Normal 5-10 [facility] Comment on above: Order Comment: COLLE CTOR TO SPECIFY Performed By: #### L 400.0001 ####[facility] [address] [place], [address] BACTERIA 1+ /hpf Normal None Seen [facility] Comment on above: Order Comment: TESSIE CTOR TO SPECIFY Performed By: #### L 400.0001 ####[facility] [address] [place], [address] WBC >100 SEEN Normal 0-5 [facility] Comment on above: Order Comment: TESSIE CTOR TO SPECIFY Performed By: #### L 400.0001 ####[facility] [address] [place], [address] YEAST 3+ /hpf Normal None Seen [facility] Comment on above: Order Comment: COLLE CTOR TO SPECIFY Performed By: #### L 400.0001 ####[facility] [address] [place], [address] Mucus Ql (Urine sed) 0 SEEN Normal [facility] Comment on above: Order Comment: TESSIE CTOR TO SPECIFY Performed By: #### L 400.0001 ####[facility] [address] [place], [address] RBC 0 SEEN Normal 0-5 [facility] Comment on above: Order Comment: TESSIE CTOR TO SPECIFY Performed By: #### L 400.0001 ####[facility] [address] [place], [address] .GFRon 08-12-2024 GFR Non- 75 ml/min/1.73sqm Normal [facility] ([place]) Comment on above: Result Comment: GFR Population [...] #### T GIOVANNA, CMP, GFR #### [address] [address] GFR 91 ml/min/1.73sqm Normal [facility] ([place]) Comment on above: Result Comment: GFR Population [...] #### T SH, CMP, GFR #### [address] [address] CMPon 03-02-2024 Albumin Level 3.0 G/dL Low 3.5-5.0 [facility] ([place] Comment on above: Performed By: #### T SH, CMP, GFR #### [address] [address] Albumin/Globulin [Mass ratio] 0.6 {ratio} Low 1.1-2.5 [facility] ([place] Comment on above: Performed By: #### T GIOVANNA CMP, GFR #### [address] [address] ALP [Catalytic activity/Vol] 216 U/L High 40-135 [facility] ([place] Comment on above: Performed By: #### T GIOVANNA, CMP, GFR #### [address] [address] ALT [Catalytic activity/Vol] 34 U/L Normal 14-59 [facility] ([place] Comment on above: Performed By: #### T GIOVANNA CMP, GFR #### [address] [address] AST [Catalytic activity/Vol] 27 U/L Normal 10-40 [facility] ([place] Comment on above: Performed By: #### T GIOVANNA CMP, GFR #### [address] [address] Bili Total 0.7 mg/dL Normal 0.2-1.0 [facility] ([place] Comment on above: Result Comment: Use of this assay is not recommended for patients undergoing treatment with eltrombopag due to the potential for falsely elevated results. Performed By: #### T GIOVANNA CMP, GFR #### [address] [address] BUN/Creatinine Ratio 13 ratio Normal 7-27 [facility] ([place]) Comment on above: Performed By: #### T GIOVANNA, CMP, GFR #### [address] [address] Calcium [Mass/Vol] 9.4 mg/dL Normal 8.4-10.2 [facility] [place] Comment on above: Performed By: #### T GIOVANNA, CMP, GFR #### [address] [address] Chloride [Moles/Vol] 93 mmol/L Low 98-107 [facility] ([place] Comment on above: Performed By: #### T GIOVANNA, CMP, GFR #### [address] [address] CO2 [Moles/Vol] 33 mmol/L High 22-29 [facility] ([place] Comment on above: Performed By: #### T SH, CMP, GFR #### [address] [address] Creatinine [Mass/Vol] 0.79 mg/dL Normal 0.55-1.02 [facility] ([place] Comment on above: Performed By: #### T SH, CMP, GFR #### [address] [address] Electrolyte Balance 3.0 mEq/L Low 4.0-15.0 [facility] ([place]) Comment on above: Performed By: #### T SH, CMP, GFR #### [address] [address] Globulin 5.0 G/dL Normal [facility] ([place] Comment on above: Performed By: #### T SH, CMP, GFR #### [address] [address] Glucose [Mass/Vol] 484 mg/dL Critically abnormal 70-105 [facility] ([place] Comment on above: Performed By: #### T SH, CMP, GFR #### [address] [address] Potassium [Moles/Vol] 4.8 mmol/L Normal 3.5-5.1 [facility] ([place] Comment on above: Performed By: #### T SH, CMP, GFR #### [address] [address] Sodium [Moles/Vol] 129 mmol/L Low 136-145 [facility] [place] Comment on above: Performed By: #### T SH, CMP, GFR #### [address] [address] Total Protein 8.0 G/dL Normal 6.4-8.2 [facility] ([place] Comment on above: Performed By: #### T SH, CMP, GFR #### [address] [place], [place] [address] Urea nitrogen [Mass/Vol] 10 mg/dL Normal 7-18 [facility] ([place] Comment on above: Performed By: #### T SH, CMP, GFR #### [address] [place], [place] [address] LABORATORYOrdered By: SYSTEM SYSTEM on 03-02-2024 Albumin [...] 03-02-2024 TSH Qn 37.38 m[IU]/L High 0.36-3.74 [facility] ([place] Comment on above: Performed By: #### T SH, CMP, GFR #### [address] [address] .Auto Diffon 02-25-2024 Basophil, Absolute 0.1 10 3/mcL Normal 0.0-0.2 [facility] ([place] Comment on above: Performed By: #### C MP, GFR, CBC, ADIFF, MD RAVENW #### [address] [address] Basophils/100 WBC (Bld) 1.1 % Normal 0.0-2.5 [facility] ([place] Comment on above: Performed By: #### C MP, GFR, CBC, ADIFF, SATURNINO CARBAJAL #### [address] [address] Eosinophil, Absolute 0.2 10 3/mcL Normal 0.0-0.4 [facility] ([place] Comment on above: Performed By: #### C MP, GFR, CBC, ADIFF, SATURNINO CARBAJAL #### [address] [address] Eosinophils/100 WBC (Bld) 2.0 % Normal 0.0-7.0 [facility] ([place] Comment on above: Performed By: #### C MP, GFR, CBC, ADIFF, SATURNINO CARBAJAL #### [address] [address] Lymphocyte, Absolute 2.1 10 3/mcL Normal 0.8-3.9 [facility] ([place] Comment on above: Performed By: #### C MP, GFR, CBC, ADIFF, SATURNINO CARBAJAL #### [address] [address] Lymphocytes/100 WBC (Bld) 18.0 % Normal 10.0-50.0 [facility] ([place] Comment on above: Performed By: #### C MP, GFR, CBC, ADIFF, ANEUSATURNINO #### [address] [address] Monocyte, Absolute 0.5 10 3/mcL Normal 0.2-1.0 [facility] ([place] Comment on above: Performed By: #### C MP, GFR, CBC, RAVEN LEDESMA MDW #### [address] [address] Monocytes/100 WBC (Bld) 4.6 % Normal 1.7-13.0 [facility] ([place] Comment on above: Performed By: #### C MP, GFR, CBC, RAVEN LEDESMA MDW #### [address] [address] Neutrophils/100 WBC (Bld) 74.3 % Normal 37.0-80.0 [facility] ([place] Comment on above: Performed By: #### C MP, GFR, CBC, RAVEN LEDESMA MDW #### [address] [address] .GFRon 02-25-2024 GFR 79 ml/min/1.73sqm Normal [facility] ([place] Comment on above: Result Comment: GFR Population [...] MP, GFR, CBC, ADRAVEN HUFF MDW #### [address] [address] GFR Non- 65 ml/min/1.73sqm Normal [facility] ([place] Comment on above: Result Comment: GFR Population [...] C MP, GFR, CBC, ADIFFRAVEN MDW #### [address] [address] .MDWon 02-25-2024 Monocyte Distribution Width 20.84 High 0.00-20.00 [facility] ([place] Comment on above: Result Comment: For adults in ED, MDW>20.0 may be associated with a higher risk of sepsis during the first 12hrs of hospital admission Performed By: #### C MP, GFR, CBC, ADIFF, SATURNINO CARBAJAL #### [address] [address] .NEUABSon 02-25-2024 Neutrophil, Absolute 8.7 10 3/mcL High 2.9-6.2 [facility] ([place] Comment on above: Performed By: #### C MP, GFR, CBC, ADIFFRAVEN MDW #### [address] [address] .Urinalysis Microscopic (AO) on 02-25-2024 UA Bacteria 3+ /hpf Abnormal [facility] ([place] Comment on above: Performed By: #### T SH, CMP, GFR #### [address] [address] UA RBC LOADED Abnormal None Seen [facility] ([place] Comment on above: Performed By: #### T SH, CMP, GFR #### [address] [address] UA Squam Epithelial 5-10 Abnormal None Seen [facility] ([place] Comment on above: Performed By: #### T SH, CMP, GFR #### [address] [address] UA WBC LOADED Abnormal None Seen [facility] ([place] Comment on above: Performed By: #### T SH, CMP, GFR #### [address] [address] ACTONon 02-25-2024 Acetone (s) Negative Normal Negative [facility] ([place] Comment on above: Performed By: #### C MP, GFR, CBC, RAVEN LEDESMA MDW #### [address] [address] CBCon 02-25-2024 Erythrocyte distribution width (RBC) [Ratio] 16.8 % High 11.5-14.5 [facility] ([place] Comment on above: Performed By: #### C MP, GFR, CBC, RAVEN LEDESMA MDW #### [place] [address] Hematocrit (Bld) [Volume fraction] 41.7 % Normal 37.0-47.0 [facility] ([place] Comment on above: Performed By: #### C MP, GFR, CBCBALTAZAR ANEU, MDW #### [address] [address] Hgb 13.3 G/dL Normal 12.0-16.0 [facility] ([place] Comment on above: Performed By: #### C MP, GFR, CBCBALTAZAR ANEU, MDW #### [address] [address] MCH (RBC) [Entitic mass] 27.3 pg Normal 27.0-31.2 [facility] ([place] Comment on above: Performed By: #### C MP, GFR, CBCBALTAZAR ANEU, MDW #### [address] [address] MCHC 31.9 G/dL Low 33.0-37.0 [facility] ([place] Comment on above: Performed By: #### C MP, GFR, CBC, RAVEN LEDESMA MDW #### [address] [address] MCV (RBC) [Entitic vol] 85.8 fL Normal 80.0-94.0 [facility] ([place] Comment on above: Performed By: #### C MP, GFR, CBC, RAVEN LEDESMA MDW #### [address] [address] Platelet 210 10 3/mcL Normal 130-400 [facility] ([place] Comment on above: Performed By: #### C MP, GFR, CBC, RAVEN LEDESMA MDW #### [address] [address] Platelet mean volume (Bld) [Entitic vol] 8.5 fL Normal 7.4-10.4 [facility] ([place] Comment on above: Performed By: #### C MP, GFR, CBC, RAVEN LEDESMA MDW #### [address] [address] RBC 4.86 10 6/mcL Normal 4.20-5.40 [facility] ([place] Comment on above: Performed By: #### C MP, GFR, CBC, RAVEN LEDESMA MDW #### [address] [address] WBC 11.7 10 3/mcL High 4.6-10.8 [facility] ([place] Comment on above: Performed By: #### C MP, GFR, CBC, RAVEN LEDESMA MDW #### [address] [address] CMPon 02-25-2024 Albumin Level 3.2 G/dL Low 3.5-5.0 [facility] ([place] Comment on above: Performed By: #### C MP, GFR, CBC, RAVEN LEDESMA MDW #### [address] [address] Albumin/Globulin [Mass ratio] 0.6 {ratio} Low 1.1-2.5 [facility] ([place] Comment on above: Performed By: #### C MP, GFR, CBC, RAVEN LEDESMA MDW #### [address] [address] ALP [Catalytic activity/Vol] 240 U/L High 40-135 [facility] ([place] Comment on above: Performed By: #### C MP, GFR, CBC, RAVEN LEDESMA MDW #### [address] [address] ALT [Catalytic activity/Vol] 41 U/L Normal 14-59 [facility] ([place] Comment on above: Performed By: #### C MP, GFR, CBC, RAVEN LEDESMA MDW #### [address] [address] AST [Catalytic activity/Vol] 45 U/L High 10-40 [facility] ([place] Comment on above: Performed By: #### C MP, GFR, CBC, RAVEN LEDESMA MDW #### [address] [address] Bili Total 0.8 mg/dL Normal 0.2-1.0 [facility] ([place] Comment on above: Result Comment: Use of this assay is not recommended for patients undergoing treatment with eltrombopag due to the potential for falsely elevated results. Performed By: #### C MP, GFR, CBC, RAVEN LEDESMA MDW #### [address] [address] BUN/Creatinine Ratio 10 ratio Normal 7-27 [facility] ([place] Comment on above: Performed By: #### C MP, GFR, CBC, RAVEN LEDESMA MDW #### [address] [address] Calcium [Mass/Vol] 8.9 mg/dL Normal 8.4-10.2 [facility] [place] Comment on above: Performed By: #### C MP, GFR, CBC, RAVEN LEDESMA MDW #### [address] [address] Chloride [Moles/Vol] 90 mmol/L Low 98-107 [facility] ([place] Comment on above: Performed By: #### C MP, GFR, CBC, RAVEN LEDESMA MDW #### [address] [address] CO2 [Moles/Vol] 31 mmol/L High 22-29 [facility] ([place] Comment on above: Performed By: #### C MP, GFR, CBC, RAVEN LEDESMA MDW #### [address] [address] Creatinine [Mass/Vol] 0.89 mg/dL Normal 0.55-1.02 [facility] ([place] Comment on above: Performed By: #### C MP, GFR, CBC, RAVEN LEDESMA MDW #### [address] [address] Electrolyte Balance 7.0 mEq/L Normal 4.0-15.0 [facility] ([place] Comment on above: Performed By: #### C MP, GFR, CBC, RAVEN LEDESMA MDW #### [address] [address] Globulin 5.5 G/dL Normal [facility] ([place] Comment on above: Performed By: #### C MP, GFR, CBC, RAVEN LEDESMA MDW #### [address] [address] Glucose [Mass/Vol] 654 mg/dL Critically abnormal 70-105 [facility] ([place] Comment on above: Performed By: #### C MP, GFR, CBC, RAVEN LEDESMA MDW #### [address] [address] Potassium [Moles/Vol] 4.8 mmol/L Normal 3.5-5.1 [facility] ([place] Comment on above: Performed By: #### C MP, GFR, CBC, RAVEN LEDESMA MDW #### [address] [address] Sodium [Moles/Vol] 128 mmol/L Low 136-145 [facility] [place] Comment on above: Performed By: #### C MP, GFR, CBC, RAVEN LEDESMA MDW #### [place] [address] [place], [place] [address] Total Protein 8.7 G/dL High 6.4-8.2 [facility] ([place] Comment on above: Performed By: #### C MP, GFR, CBC, RAVEN LEDESMA MDW #### [place] [address] [place], [place] [address] Urea nitrogen [Mass/Vol] 9 mg/dL Normal 7-18 [facility] ([place] Comment on above: Performed By: #### C MP, GFR, CBC, RAVEN LEDESMA MDW #### [place] [address] [place], [place] [address] CT ABD/PELVIS W/ IV CONTRAST ONLYon 02-25-2024 [...] 02/25/2024 12:00:15 PM Ordering Provider: URSULA Epstein [facility] ([place]) LABORATORYOrdered By: Nazanin Recio on 02-25-2024 Glucose [Mass/Vol] 334 mg/dL High 70 - 110 mg/dL [facility] Work Phone: Glucose [Mass/Vol] 432 mg/dL Invalid Interpretation Code 70 - 110 mg/dL [facility] Work Phone: Glucose [Mass/Vol] 532 mg/dL Invalid Interpretation Code 70 - 110 mg/dL [facility] Work Phone: LABORATORYOrdered By: Arden Patel [...] SS UAon 02-25-2024 Color (U) Yellow Normal [facility] ([place] Comment on above: Performed By: #### T SH, CMP, GFR #### [address] [address] Glucose (U) [Mass/Vol] mg/dL Abnormal Negative [facility] ([place] Comment on above: Performed By: #### T GIOVANNA, CMP, GFR #### [address] [address] Ketones Ql (U) Negative Normal Negative [facility] ([place] Comment on above: Performed By: #### T GIOVANNA, CMP, GFR #### [address] [address] UA Appear Slightly Cloudy Abnormal Clear [facility] ([place] Comment on above: Performed By: #### T GIOVANNA, CMP, GFR #### [address] [address] UA Blood Moderate Abnormal Negative [facility] ([place] Comment on above: Performed By: #### T GIOVANNA, CMP, GFR #### [address] [address] UA Leuk Est Trace Abnormal Negative [facility] ([place] Comment on above: Performed By: #### T SH, CMP, GFR #### [address] [address] UA Nitrite Negative Normal Negative [facility] ([place] Comment on above: Performed By: #### T SH, CMP, GFR #### [address] [address] UA pH 6.0 Normal 5.0 - 8.0 [facility] ([place] Comment on above: Performed By: #### T SH, CMP, GFR #### [address] [address] UA Protein Negative Normal Negative [facility] ([place] Comment on above: Performed By: #### T SH, CMP, GFR #### [address] [address] UA Spec Grav 1.010 Abnormal 1.015-1.025 [facility] ([place] Comment on above: Performed By: #### T SH, CMP, GFR #### [address] [address] UA Specimen Type Clean Catch Normal [facility] ([place] Comment on above: Performed By: #### T SH, CMP, GFR #### [address] [address] UA Urobilinogen 0.2 E.U./dL Normal 0.2-1.0 [facility] ([place] Comment on above: Performed By: #### T SH, CMP, GFR #### [address] [address] Urobilinogen (U) [Mass/Vol] Negative Normal Negative [facility] ([place] Comment on above: Performed By: #### T SH, CMP, GFR #### [address] [address] .Auto Diffon 02-24-2024 Basophil, Absolute 0.0 10 3/mcL Normal 0.0-0.2 [facility] ([place] Comment on above: Performed By: #### C MP, GFR, CBC, RAVEN LEDESMA MDW #### [address] [address] Basophils/100 WBC (Bld) 0.8 % Normal 0.0-2.5 [facility] ([place] Comment on above: Performed By: #### C MP, GFR, CBC, RAVEN LEDESMA MDW #### [address] [address] Eosinophil, Absolute 0.2 10 3/mcL Normal 0.0-0.4 [facility] ([place] Comment on above: Performed By: #### C MP, GFR, CBC, ADIFF, SATURNINO CARBAJAL #### [address] [address] Eosinophils/100 WBC (Bld) 3.4 % Normal 0.0-7.0 [facility] ([place] Comment on above: Performed By: #### C MP, GFR, CBC, ADIFF, ANEUSATURNINO #### [address] [address] Lymphocyte, Absolute 2.0 10 3/mcL Normal 0.8-3.9 [facility] ([place] Comment on above: Performed By: #### C MP, GFR, CBC, ADIFF, SATURNINO CARBAJAL #### [address] [address] Lymphocytes/100 WBC (Bld) 32.2 % Normal 10.0-50.0 [facility] ([place] Comment on above: Performed By: #### C MP, GFR, CBC, ADIFF, SATURNINO CARBAJAL #### [address] [address] Monocyte, Absolute 0.4 10 3/mcL Normal 0.2-1.0 [facility] ([place] Comment on above: Performed By: #### C MP, GFR, CBC, ADIFF, SATURNINO CARBAJAL #### [address] [address] Monocytes/100 WBC (Bld) 6.0 % Normal 1.7-13.0 [facility] ([place] Comment on above: Performed By: #### C MP, GFR, CBC, ADIFF, SATURNINO CARBAJAL #### [address] [address] Neutrophils/100 WBC (Bld) 57.6 % Normal 37.0-80.0 [facility] ([place] Comment on above: Performed By: #### C MP, GFR, CBC, ADIFF, ANEUSATURNINO #### [address] [address] .GFRon 02-24-2024 GFR 73 ml/min/1.73sqm Normal [facility] ([place] Comment on above: Result Comment: GFR Population [...] MP, GFR, CBC, RAVEN LEDESMA MDW #### [address] [address] GFR Non- 60 ml/min/1.73sqm Normal [facility] ([place] Comment on above: Result Comment: GFR Population [...] MP, GFR, CBC, ADRAVEN HUFF MDW #### [address] [address] .NEUABSon 02-24-2024 Neutrophil, Absolute 3.7 10 3/mcL Normal 2.9-6.2 [facility] ([place] Comment on above: Performed By: #### C MP, GFR, CBC, ADIFFRAVEN MDW #### [address] [address] CBCon 02-24-2024 Erythrocyte distribution width (RBC) [Ratio] 16.6 % High 11.5-14.5 [facility] ([place] Comment on above: Performed By: #### C MP, GFR, CBC, RAVEN LEDESMA MDW #### [place] [address] Hematocrit (Bld) [Volume fraction] 38.2 % Normal 37.0-47.0 [facility] ([place] Comment on above: Performed By: #### C MP, GFR, CBC, RAVEN LEDESMA MDW #### [place] [address] Hgb 12.3 G/dL Normal 12.0-16.0 [facility] ([place] Comment on above: Performed By: #### C MP, GFR, CBC, RAVEN LEDESMA MDW #### [place] [address] MCH (RBC) [Entitic mass] 27.3 pg Normal 27.0-31.2 [facility] ([place] Comment on above: Performed By: #### C MP, GFR, CBCBALTAZAR ANEU, MDW #### [place] [address] MCHC 32.2 G/dL Low 33.0-37.0 [facility] ([place] Comment on above: Performed By: #### C MP, GFR, CBC, RAVEN LEDESMA MDW #### [place] [address] MCV (RBC) [Entitic vol] 84.6 fL Normal 80.0-94.0 [facility] ([place] Comment on above: Performed By: #### C MP, GFR, CBCBALTAZAR ANEU, MDW #### [place] [address] Platelet 187 10 3/mcL Normal 130-400 [facility] ([place] Comment on above: Performed By: #### C MP, GFR, CBC, RAVEN LEDESMA MDW #### [address] [address] Platelet mean volume (Bld) [Entitic vol] 8.6 fL Normal 7.4-10.4 [facility] ([place] Comment on above: Performed By: #### C MP, GFR, CBC, RAVEN LEDESMA MDW #### [address] [address] RBC 4.52 10 6/mcL Normal 4.20-5.40 [facility] ([place] Comment on above: Performed By: #### C MP, GFR, CBC, RAVEN LEDESMA MDW #### [address] [address] WBC 6.4 10 3/mcL Normal 4.6-10.8 [facility] ([place] Comment on above: Performed By: #### C MP, GFR, CBCBALTAZAR ANEU, MDW #### [address] [address] CEFUROXIME:SUSC:PT:ISOLATE:O RDQN:MICon 02-24-2024 Cefuroxime SHAHEEN [Susc] >100,000 cfu/ml Escherichia coli >100,000 cfu/ml Escherichia coli #2 [facility] Work Phone: [facility] 02-24-2024 Albumin Level 3.1 G/dL Low 3.5-5.0 [facility] ([place] Comment on above: Performed By: #### C MP, GFR, CBC, RAVEN LEDESMA MDW #### [address] [address] Albumin/Globulin [Mass ratio] 0.6 {ratio} Low 1.1-2.5 [facility] ([place] Comment on above: Performed By: #### C MP, GFR, CBCBALTAZAR ANEU, MDW #### [address] [address] ALP [Catalytic activity/Vol] 223 U/L High 40-135 [facility] ([place] Comment on above: Performed By: #### C MP, GFR, CBC, RAVEN LEDESMA MDW #### [address] [address] ALT [Catalytic activity/Vol] 44 U/L Normal 14-59 [facility] ([place] Comment on above: Performed By: #### C MP, GFR, CBC, RAVEN LEDESMA MDW #### [place] [address] [place], [place] [address] AST [Catalytic activity/Vol] 36 U/L Normal 10-40 [facility] ([place] Comment on above: Performed By: #### C MP, GFR, CBC, RAVEN LEDESMA MDW #### [address] [address] Bili Total 0.7 mg/dL Normal 0.2-1.0 [facility] ([place] Comment on above: Result Comment: Use of this assay is not recommended for patients undergoing treatment with eltrombopag due to the potential for falsely elevated results. Performed By: #### C MP, GFR, CBC, RAVEN LEDESMA MDW #### [address] [address] BUN/Creatinine Ratio 14 ratio Normal 7-27 [facility] ([place] Comment on above: Performed By: #### C MP, GFR, CBC, RAVEN LEDESMA MDW #### [address] [address] Calcium [Mass/Vol] 9.0 mg/dL Normal 8.4-10.2 [facility] [place] Comment on above: Performed By: #### C MP, GFR, CBC, RAVEN LEDESMA MDW #### [address] [address] Chloride [Moles/Vol] 96 mmol/L Low 98-107 [facility] ([place]) Comment on above: Performed By: #### C MP, GFR, CBC, RAVEN LEDESMA MDW #### [address] [address] CO2 [Moles/Vol] 32 mmol/L High 22-29 [facility] ([place]) Comment on above: Performed By: #### C MP, GFR, CBC, RAVEN LEDESMA MDW #### [address] [address] Creatinine [Mass/Vol] 0.96 mg/dL Normal 0.55-1.02 [facility] ([place]) Comment on above: Performed By: #### C MP, GFR, CBC, RAVEN LEDESMA MDW #### [address] [address] Electrolyte Balance 3.0 mEq/L Low 4.0-15.0 [facility] ([place]) Comment on above: Performed By: #### C MP, GFR, CBC, RAVEN LEDESMA MDW #### [address] [address] Globulin 5.0 G/dL Normal [facility] ([place]) Comment on above: Performed By: #### C MP, GFR, CBC, RAVEN LEDESMA MDW #### [address] [address] Glucose [Mass/Vol] 567 mg/dL Critically abnormal 70-105 [facility] ([place]) Comment on above: Performed By: #### C MP, GFR, CBC, RAVEN LEDESMA MDW #### [address] [address] Potassium [Moles/Vol] 5.3 mmol/L High 3.5-5.1 [facility] ([place]) Comment on above: Performed By: #### C MP, GFR, CBC, RAVEN LEDESMA MDW #### [address] [address] Sodium [Moles/Vol] 131 mmol/L Low 136-145 [facility] [place] Comment [place]: Performed By: #### C MP, GFR, CBC, RAVEN LEDESMA MDW #### [address] [address] Total Protein 8.1 G/dL Normal 6.4-8.2 [facility] ([place]) Comment on above: Performed By: #### C MP, GFR, CBC, ADRAVEN HUFF MDW #### [facility] [address] [place], [place] [address] Urea nitrogen [Mass/Vol] 13 mg/dL Normal 7-18 [facility] ([place]) Comment on above: Performed By: #### C MP, GFR, CBC, ADDARIA, SATURNINO CARBAJAL #### [facility] [address] [place], [place] [address] Cefuroxime SHAHEEN [Susc]on Escherichia coli Escherichia coli [facility] Work Phone: LABORATORYOrdered By: SYSTEM SYSTEM [...] Comment on above: Result Comment: CVRB D Demetriodagiovanna 1335 [id number] ja Hematocrit (Bld) [Volume fraction] 38.2 % [...] 4.6 - 10.8 10^3/mcL AO Workflow SS No Panel Informationon 01-13 Culture Urine >100,000 cfu/ml Mult iple bacterial morphotypes present. Probable Contamination. Suggest recollection if clinically indicated. [facility] Work Phone: US ABDOMEN COMPLETEon 2023 [...] 09/17/2023 1:13:39 PM Ordering Provider: VERO Epstein [facility] ([place]) CT THORAX W/O CONTRASTon CT THORAX W/O [...] Date: 09/04/2023 12:40:25 PM Ordering Provider: VERO Epstein [facility] ([place]) GGTon 08-19-2023 Gamma GT 202 U/L High 5-55 [facility] ([place]) Comment on above: Performed By: #### T ZAYNAB HEREDIA, GFR #### [address] [address] HEPACon 08-19-2023 Hep A IgM Ab Int Normal [facility] ([place]) Comment on above: Result Comment: No s erological evidence of a current Hepatitis A infection. See Interp Performed By: #### T ZAYNAB HEREDIA, GFR #### [place] [address] Hep B Core IgM Ab Non-Reactive Normal Non-Reactive [facility] ([place]) Comment on above: Performed By: #### iNr HEREDIA CMP, GFR #### [place] [address] Hep B Core IgM Ab Int Normal [facility] ([place]) Comment on above: Result Comment: Samp les with a value < 0.80 Index are considered nonreactive (negative) for IgM antibodies to hepatitis B core antigen. See Interp Performed By: #### Nir HEREDIA CMP, GFR #### [place] [address] Hep C Ab Int [facility] ([place]) Comment on above: Result Comment: Nonr eactive: Samples with a value < 0.80 are considered nonreactive (negative) for antibodies to HCV. A negative test result does not exclude the possibility of exposure to or infection with HCV. HCV antibodies may be undetectable in some stages of the infection and in some clinical conditions. See Interp Performed By: #### T ZAYNAB HEREDIA, GFR #### [place] [address] [address] Hep A IgM Ab Non-Reactive Normal Non-Reactive [facility] ([place]) Comment on above: Performed By: #### T ZAYNAB HEREDIA, GFR #### [place] [address] Hep B Surf Ag Non-Reactive Normal Non-Reactive [facility] ([place] Comment on above: Performed By: #### T ZAYNAB HEREDIA, GFR #### [address] [address] Hep C Ab Non-Reactive Normal Non-Reactive [facility] ([place] Comment on above: Performed By: #### T SH, CMP, GFR #### [address] [address] .GFRon 07-30-2023 GFR 78 ml/min/1.73sqm Normal [facility] ([place] Comment on above: Result Comment: GFR Population [...] MP, GFR, CBC, RAVEN LEDESMA MDW #### [address] [address] GFR Non- 64 ml/min/1.73sqm Normal [facility] ([place]) Comment on above: Result Comment: GFR Population [...] C MP, GFR, CBC, ADIFFRAVEN MDW #### [address] [address] CMPon 07-30-2023 Albumin Level 3.1 G/dL Low 3.5-5.0 [facility] ([place]) Comment on above: Performed By: #### C MP, GFR, CBC, RAVEN LEDESMA MDW #### [address] [address] Albumin/Globulin [Mass ratio] 0.6 {ratio} Low 1.1-2.5 [facility] ([place]) Comment on above: Performed By: #### C MP, GFR, CBC, RAVEN LEDESMA MDW #### [address] [address] ALP [Catalytic activity/Vol] 255 U/L High 40-135 [facility] ([place] Comment on above: Performed By: #### C MP, GFR, CBC, RAVEN LEDESMA MDW #### [address] [address] ALT [Catalytic activity/Vol] 70 U/L High 14-59 [facility] ([place] Comment on above: Performed By: #### C MP, GFR, CBC, RAVEN LEDESMA MDW #### [address] [address] AST [Catalytic activity/Vol] 64 U/L High 10-40 [facility] ([place] Comment on above: Performed By: #### C MP, GFR, CBC, RAVEN LEDESMA MDW #### [address] [address] Bili Total 0.6 mg/dL Normal 0.2-1.0 [facility] ([place]) Comment on above: Result Comment: Use of this assay is not recommended for patients undergoing treatment with eltrombopag due to the potential for falsely elevated results. Performed By: #### C MP, GFR, CBC, ADRAVEN HUFF MDW #### [address] [address] BUN/Creatinine Ratio 13 ratio Normal 7-27 [facility] ([place] Comment on above: Performed By: #### C MP, GFR, CBC, ADRAVEN HUFF MDW #### [address] [address] Calcium [Mass/Vol] 9.7 mg/dL Normal 8.4-10.2 [facility] [place] Comment [place] above: Performed By: #### C MP, GFR, CBC, RAVEN LEDESMA MDW #### [address] [address] Chloride [Moles/Vol] 98 mmol/L Normal 98-107 [facility] ([place] Comment on above: Performed By: #### C MP, GFR, CBC, RAVEN LEDESMA MDW #### [address] [address] CO2 [Moles/Vol] 33 mmol/L High 22-29 [facility] ([place] Comment on above: Performed By: #### C MP, GFR, CBC, RAVEN LEDESMA MDW #### [address] [address] Creatinine [Mass/Vol] 0.91 mg/dL Normal 0.55-1.02 [facility] ([place] Comment on above: Performed By: #### C MP, GFR, CBC, ADRAVEN HUFF MDW #### [address] [address] Electrolyte Balance 6.0 mEq/L Normal 4.0-15.0 [facility] ([place]) Comment on above: Performed By: #### C MP, GFR, CBC, ADRAVEN HUFF MDW #### [address] [address] Globulin 5.1 G/dL Normal [facility] ([place] Comment on above: Performed By: #### C MP, GFR, CBC, ADRAVEN HUFF MDW #### [address] [address] Glucose [Mass/Vol] 361 mg/dL High 70-105 [facility] [place] Comment [place]: Performed By: #### C MP, GFR, CBC, ADIFF, ANEU, MDW #### [address] [address] Potassium [Moles/Vol] 4.7 mmol/L Normal 3.5-5.1 [facility] ([place] Comment on above: Performed By: #### C MP, GFR, CBC, RAVEN LEDESMA MDW #### [address] [address] Sodium [Moles/Vol] 137 mmol/L Normal 136-145 [facility] [place] Comment [place] above: Performed By: #### C MP, GFR, CBC, RAVEN LEDESMA MDW #### [address] [address] Total Protein 8.2 G/dL Normal 6.4-8.2 [facility] ([place] Comment on above: Performed By: #### C MP, GFR, CBC, RAVEN LEDESMA MDW #### [address] [address] Urea nitrogen [Mass/Vol] 12 mg/dL Normal 7-18 [facility] ([place] Comment on above: Performed By: #### C MP, GFR, CBCBALTAZAR ANEU, MDW #### [address] [address] FT4on 07-30-2023 Free T4 [Mass/Vol] 0.76 ng/dL Normal 0.76-1.46 [facility] [place] Comment [place]: Performed By: #### C MP, GFR, CBC, RAVEN LEDESMA MDW #### [address] [address] LABORATORYOrdered By: SYSTEM SYSTEM on 07-30-2023 Albumin [...] 07-30-2023 TSH Qn 11.80 m[IU]/L High 0.36-3.74 [facility] ([place]) Comment on above: Performed By: #### C MP, GFR, CBC, ADIFFRAVEN MDW #### [address] [address] .Auto Diffon 07-26-2023 Basophil, Absolute 0.1 10 3/mcL Normal 0.0-0.2 [facility] ([place]) Comment on above: Performed By: #### T SH, CMP, GFR #### [address] [address] Basophils/100 WBC (Bld) 0.8 % Normal 0.0-2.5 [facility] ([place] Comment on above: Performed By: #### T SH, CMP, GFR #### [address] [address] Eosinophil, Absolute 0.4 10 3/mcL Normal 0.0-0.4 [facility] ([place]) Comment on above: Performed By: #### T SH, CMP, GFR #### [address] [address] Eosinophils/100 WBC (Bld) 3.5 % Normal 0.0-7.0 [facility] ([place]) Comment on above: Performed By: #### T SH, CMP, GFR #### [address] [address] Lymphocyte, Absolute 2.9 10 3/mcL Normal 0.8-3.9 [facility] ([place] Comment on above: Performed By: #### T SH, CMP, GFR #### [address] [address] Lymphocytes/100 WBC (Bld) 28.1 % Normal 10.0-50.0 [facility] ([place]) Comment on above: Performed By: #### T SH, CMP, GFR #### [address] [address] Monocyte, Absolute 0.7 10 3/mcL Normal 0.2-1.0 [facility] ([place] Comment on above: Performed By: #### T SH, CMP, GFR #### [address] [address] Monocytes/100 WBC (Bld) 6.5 % Normal 1.7-13.0 [facility] ([place] Comment on above: Performed By: #### T SH, CMP, GFR #### [address] [address] Neutrophils/100 WBC (Bld) 61.1 % Normal 37.0-80.0 [facility] ([place] Comment on above: Performed By: #### T SH, CMP, GFR #### [address] [address] .GFRon 07-26-2023 GFR 80 ml/min/1.73sqm Normal [facility] ([place]) Comment on above: Result Comment: GFR Population [...] By: #### T SH, CMP, GFR #### [address] [address] GFR Non- 66 ml/min/1.73sqm Normal [facility] ([place] Comment on above: Result Comment: GFR Population [...] By: #### T SH, CMP, GFR #### [address] [address] .NEUABSon 07-26-2023 Neutrophil, Absolute 6.2 10 3/mcL Normal 2.9-6.2 [facility] ([place] Comment on above: Performed By: #### T SH, CMP, GFR #### [address] [address] CBCon 07-26-2023 Erythrocyte distribution width (RBC) [Ratio] 15.8 % High 11.5-14.5 [facility] ([place]) Comment on above: Performed By: #### T SH, CMP, GFR #### [address] [address] Hematocrit (Bld) [Volume fraction] 40.5 % Normal 37.0-47.0 [facility] ([place] Comment on above: Performed By: #### T SH, CMP, GFR #### [place] [id number] Hgb 13.6 G/dL Normal 12.0-16.0 [facility] ([place] Comment on above: Performed By: #### T SH, CMP, GFR #### [address] [address] MCH (RBC) [Entitic mass] 28.8 pg Normal 27.0-31.2 [facility] ([place] Comment on above: Performed By: #### T SH, CMP, GFR #### [address] [address] MCHC 33.7 G/dL Normal 33.0-37.0 [facility] ([place] Comment on above: Performed By: #### T SH, CMP, GFR #### [address] [address] MCV (RBC) [Entitic vol] 85.6 fL Normal 80.0-94.0 [facility] ([place] Comment on above: Performed By: #### T SH, CMP, GFR #### [address] [address] Platelet 232 10 3/mcL Normal 130-400 [facility] ([place]) Comment on above: Performed By: #### T SH, CMP, GFR #### [address] [address] Platelet mean volume (Bld) [Entitic vol] 7.9 fL Normal 7.4-10.4 [facility] ([place] Comment on above: Performed By: #### T SH, CMP, GFR #### [address] [address] RBC 4.73 10 6/mcL Normal 4.20-5.40 [facility] ([place] Comment on above: Performed By: #### T SH, CMP, GFR #### [address] [address] WBC 10.2 10 3/mcL Normal 4.6-10.8 [facility] ([place] Comment on above: Performed By: #### T SH, CMP, GFR #### [address] [address] CMPon 07-26-2023 Albumin Level 3.2 G/dL Low 3.5-5.0 [facility] ([place] Comment on above: Performed By: #### T SH, CMP, GFR #### [address] [address] Albumin/Globulin [Mass ratio] 0.6 {ratio} Low 1.1-2.5 [facility] ([place] Comment on above: Performed By: #### T SH, CMP, GFR #### [address] [address] ALP [Catalytic activity/Vol] 279 U/L High 40-135 [facility] ([place] Comment on above: Performed By: #### T SH, CMP, GFR #### [address] [address] ALT [Catalytic activity/Vol] 106 U/L High 14-59 [facility] ([place]) Comment on above: Performed By: #### T SH, CMP, GFR #### [address] [address] AST [Catalytic activity/Vol] 144 U/L High 10-40 [facility] ([place] Comment on above: Performed By: #### T SH, CMP, GFR #### [address] [address] Bili Total 0.8 mg/dL Normal 0.2-1.0 [facility] ([place]) Comment on above: Result Comment: Use of this assay is not recommended for patients undergoing treatment with eltrombopag due to the potential for falsely elevated results. Performed By: #### T GIOVANNA CMP, GFR #### [address] [address] BUN/Creatinine Ratio 17 ratio Normal 7-27 [facility] ([place] Comment on above: Performed By: #### T GIOVANNA CMP, GFR #### [address] [address] Calcium [Mass/Vol] 9.4 mg/dL Normal 8.4-10.2 [facility] [place] Comment [place] above: Performed By: #### T GIOVANNA CMP, GFR #### [address] [address] Chloride [Moles/Vol] 97 mmol/L Low 98-107 [facility] ([place] Comment on above: Performed By: #### T GIOVANNA CMP, GFR #### [address] [address] CO2 [Moles/Vol] 32 mmol/L High 22-29 [facility] ([place] Comment on above: Performed By: #### T GIOVANNA CMP, GFR #### [address] [address] Creatinine [Mass/Vol] 0.89 mg/dL Normal 0.55-1.02 [facility] ([place] Comment on above: Performed By: #### T GIOVANNA CMP, GFR #### [address] [address] Electrolyte Balance 6.0 mEq/L Normal 4.0-15.0 [facility] ([place]) Comment on above: Performed By: #### T GIOVANNA CMP, GFR #### [address] [address] Globulin 5.3 G/dL Normal [facility] ([place] Comment on above: Performed By: #### T GIOVANNA, CMP, GFR #### [address] [address] Glucose [Mass/Vol] 388 mg/dL High 70-105 [facility] [place] Comment [place]: Performed By: #### T SH, CMP, GFR #### [address] [address] Potassium [Moles/Vol] 5.3 mmol/L High 3.5-5.1 [facility] ([place] Comment on above: Performed By: #### T SH, CMP, GFR #### [address] [address] Sodium [Moles/Vol] 135 mmol/L Low 136-145 [facility] [place] Comment [place] above: Performed By: #### T SH, CMP, GFR #### [address] [address] Total Protein 8.5 G/dL High 6.4-8.2 [facility] ([place] Comment on above: Performed By: #### T SH, CMP, GFR #### [address] [address] Urea nitrogen [Mass/Vol] 15 mg/dL Normal 7-18 [facility] ([place] Comment on above: Performed By: #### T SH, CMP, GFR #### [address] [address] LABORATORYOrdered By: SYSTEM SYSTEM on 07-26-2023 Albumin [...] 07-26-2023 Cholesterol [Mass/Vol] 169 mg/dL Normal 0-200 [facility] ([place] Comment on above: Result Comment: Chol esterol Reference Interval: Less than 200 Desirable 200-239 Borderline high risk 240 and above High risk Performed By: #### T GIOVANNA, CMP, GFR #### [place] [address] [place], [place] [address] Cholesterol in HDL [Mass/Vol] 33 mg/dL Low 40-60 [facility] ([place] Comment on above: Performed By: #### T SH, CMP, GFR #### [place] [address] [address] Cholesterol in LDL [Mass/Vol] 67 mg/dL Normal 0-130 [facility] ([place] Comment on above: Performed By: #### T SH, CMP, GFR #### [address] [address] Triglyceride [Mass/Vol] 344 mg/dL High 0-150 [facility] ([place] Comment on above: Result Comment: Trig lyceride Reference Interval: Less than 150 Normal 150-199 Borderline high risk 200-499 High risk 500 or higher Very high risk Performed By: #### T SH, CMP, GFR #### [address] [address] .Auto Diffon 06-08-2023 Basophil, Absolute 0.1 10 3/mcL Normal 0.0-0.2 [facility] ([place] Comment on above: Performed By: #### T SH, CMP, GFR #### [address] [address] Basophils/100 WBC (Bld) 0.7 % Normal 0.0-2.5 [facility] ([place] Comment on above: Performed By: #### T SH, CMP, GFR #### [address] [address] Eosinophil, Absolute 0.5 10 3/mcL High 0.0-0.4 [facility] ([place] Comment on above: Performed By: #### T SH, CMP, GFR #### [address] [address] Eosinophils/100 WBC (Bld) 5.0 % Normal 0.0-7.0 [facility] ([place] Comment on above: Performed By: #### T SH, CMP, GFR #### [address] [address] Lymphocyte, Absolute 2.9 10 3/mcL Normal 0.8-3.9 [facility] ([place] Comment on above: Performed By: #### T SH, CMP, GFR #### [address] [address] Lymphocytes/100 WBC (Bld) 28.4 % Normal 10.0-50.0 [facility] ([place] Comment on above: Performed By: #### T SH, CMP, GFR #### [address] [address] Monocyte, Absolute 0.5 10 3/mcL Normal 0.2-1.0 [facility] ([place] Comment on above: Performed By: #### T SH, CMP, GFR #### [address] [address] Monocytes/100 WBC (Bld) 5.0 % Normal 1.7-13.0 [facility] ([place]) Comment on above: Performed By: #### T GIOVANNA, CMP, GFR #### [address] [address] Neutrophils/100 WBC (Bld) 60.9 % Normal 37.0-80.0 [facility] ([place] Comment on above: Performed By: #### T GIOVANNA, CMP, GFR #### [address] [address] .GFRon 06-08-2023 GFR 66 ml/min/1.73sqm Normal [facility] ([place]) Comment on above: Result Comment: GFR Population [...] By: #### T SH, CMP, GFR #### [address] [address] GFR Non- 55 ml/min/1.73sqm Normal [facility] ([place] Comment on above: Result Comment: GFR Population [...] By: #### T SH, CMP, GFR #### [place] [address] .MDWon 06-08-2023 Monocyte Distribution Width 22.23 High 0.00-20.00 [facility] ([place] Comment on above: Result Comment: For adults in ED, MDW>20.0 may be associated with a higher risk of sepsis during the first 12hrs of hospital admission Performed By: #### T SH, CMP, GFR #### [place] [address] .NEUABSon 06-08-2023 Neutrophil, Absolute 6.2 10 3/mcL Normal 2.9-6.2 [facility] ([place] Comment on above: Performed By: #### T SH, CMP, GFR #### [address] [address] .Urinalysis Microscopic (AO) on 06-08-2023 UA RBC 10-15 Abnormal None Seen [facility] ([place] Comment on above: Performed By: #### T SH, CMP, GFR #### [address] [address] UA Squam Epithelial 0-5 Abnormal None Seen [facility] ([place]) Comment on above: Performed By: #### T SH, CMP, GFR #### [place] [address] UA WBC LOADED Abnormal None Seen [facility] ([place] Comment on above: Performed By: #### T SH, CMP, GFR #### [place] [id number] CBCon 06-08-2023 Erythrocyte distribution width (RBC) [Ratio] 16.3 % High 11.5-14.5 [facility] ([place] Comment on above: Performed By: #### C BC, ADIFF, ANEU, MDW, LIP, CMP, GFR #### [place] [address] Hematocrit (Bld) [Volume fraction] 38.8 % Normal 37.0-47.0 [facility] ([place] Comment on above: Performed By: #### C BC, ADIFF, ANEU, MDW, LIP, CMP, GFR #### [place] [address] Hgb 13.1 G/dL Normal 12.0-16.0 [facility] ([place] Comment on above: Performed By: #### C BC, ADIFF, ANEU, MDW, LIP, CMP, GFR #### [place] [id number] MCH (RBC) [Entitic mass] 28.0 pg Normal 27.0-31.2 [facility] ([place] Comment on above: Performed By: #### C BC, ADIFF, ANEU, MDW, LIP, CMP, GFR #### [place] [address] MCHC 33.8 G/dL Normal 33.0-37.0 [facility] ([place] Comment on above: Performed By: #### C BC, ADIFF, ANEU, MDW, LIP, CMP, GFR #### [place] [address] MCV (RBC) [Entitic vol] 82.7 fL Normal 80.0-94.0 [facility] ([place] Comment on above: Performed By: #### C BC, ADIFF, ANEU, MDW, LIP, CMP, GFR #### [place] [address] Platelet 216 10 3/mcL Normal 130-400 [facility] ([place] Comment on above: Performed By: #### C CAPRI, RAVEN LEDESMA, W, LIP, CMP, GFR #### [address] [address] Platelet mean volume (Bld) [Entitic vol] 7.8 fL Normal 7.4-10.4 [facility] ([place] Comment on above: Performed By: #### C CAPRI, BALTAZAR, RAVEN, W, LIP, CMP, GFR #### [place] [address] [address] RBC 4.68 10 6/mcL Normal 4.20-5.40 [facility] ([place]) Comment on above: Performed By: #### C CAPRI, BALTAZAR, RAVEN, W, LIP, CMP, GFR #### [address] [address] WBC 10.2 10 3/mcL Normal 4.6-10.8 [facility] ([place] Comment on above: Performed By: #### C CAPRI, BALTAZAR, RAVEN, W, LIP, CMP, GFR #### [address] [address] CMPon 06-08-2023 Albumin Level 3.4 G/dL Low 3.5-5.0 [facility] ([place] Comment on above: Performed By: #### T SH, CMP, GFR #### [address] [address] Albumin/Globulin [Mass ratio] 0.7 {ratio} Low 1.1-2.5 [facility] ([place] Comment on above: Performed By: #### T SH, CMP, GFR #### [address] [address] ALP [Catalytic activity/Vol] 242 U/L High 40-135 [facility] ([place] Comment on above: Performed By: #### T SH, CMP, GFR #### [address] [address] ALT [Catalytic activity/Vol] 68 U/L High 14-59 [facility] ([place] Comment on above: Performed By: #### T GIOVANNA, CMP, GFR #### [address] [address] AST [Catalytic activity/Vol] 53 U/L High 10-40 [facility] ([place] Comment on above: Performed By: #### T GIOVANNA, CMP, GFR #### [address] [address] Bili Total 0.5 mg/dL Normal 0.2-1.0 [facility] ([place] Comment on above: Result Comment: Use of this assay is not recommended for patients undergoing treatment with eltrombopag due to the potential for falsely elevated results. Performed By: #### T GIOVANNA, CMP, GFR #### [address] [address] BUN/Creatinine Ratio 14 ratio Normal 7-27 [facility] ([place] Comment on above: Performed By: #### T GIOVANNA, CMP, GFR #### [address] [address] Calcium [Mass/Vol] 8.9 mg/dL Normal 8.4-10.2 [facility] [place] Comment [place]: Performed By: #### T GIOVANNA, CMP, GFR #### [address] [address] Chloride [Moles/Vol] 96 mmol/L Low 98-107 [facility] ([place] Comment on above: Performed By: #### T GIOVANNA, CMP, GFR #### [address] [address] CO2 [Moles/Vol] 31 mmol/L High 22-29 [facility] ([place] Comment on above: Performed By: #### T GIOVANNA, CMP, GFR #### [address] [address] Creatinine [Mass/Vol] 1.04 mg/dL High 0.55-1.02 [facility] ([place] Comment on above: Performed By: #### T SH, CMP, GFR #### [address] [address] Electrolyte Balance 5.0 mEq/L Normal 4.0-15.0 [facility] ([place]) Comment on above: Performed By: #### T GIOVANNA, CMP, GFR #### [address] [address] Globulin 5.0 G/dL Normal [facility] ([place] Comment on above: Performed By: #### T GIOVANNA, CMP, GFR #### [address] [address] Glucose [Mass/Vol] 355 mg/dL High 70-105 [facility] [place] Comment [place]: Performed By: #### T GIOVANNA CMP, GFR #### [address] [address] Potassium [Moles/Vol] 4.6 mmol/L Normal 3.5-5.1 [facility] ([place] Comment on above: Performed By: #### T GIOVANNA, CMP, GFR #### [address] [address] Sodium [Moles/Vol] 132 mmol/L Low 136-145 [facility] [place] Comment [place]: Performed By: #### T GIOVANNA CMP, GFR #### [address] [address] Total Protein 8.4 G/dL High 6.4-8.2 [facility] ([place] Comment on above: Performed By: #### T GIOVANNA, CMP, GFR #### [address] [address] Urea nitrogen [Mass/Vol] 15 mg/dL Normal 7-18 [facility] ([place] Comment on above: Performed By: #### T GIOVANNA, CMP, GFR #### [address] [address] [address] ABD/PELVIS W/ IV CONTRAST ONLYon 06-08-2023 CT ABD/PELVIS W/ IV CONTRAST ONLY ORIGINAL EXAMINATION: CT OF THE ABDOMEN AND PELVIS WITH [id number]/18/2023 5:[address] ABDOMEN/PELVIS WITH CONTRAST Multiple [...] ORDERING SYSTEM PROVIDED HISTORY: Reason for Exam: [id number] FINDINGS: Lung bases/lower mediastinum: Part solid pulmonary [...] 6:01:19 PM Ordering Provider: CINDY ROGERS Normal [facility] ([place]) LIPon 06-08-2023 Lipase Level 27 U/L Normal 16-77 [facility] ([place]) Comment on above: Performed By: #### T SH, CMP, GFR #### [place] [address] [address] UAon 06-08-2023 Color (U) Yellow Normal [facility] ([place]) Comment on above: Performed By: #### T SH, CMP, GFR #### [place] [address] [address] Glucose (U) [Mass/Vol] 500 mg/dL Abnormal Negative [facility] ([place] Comment on above: Performed By: #### T SH, CMP, GFR #### [place] [address] Ketones Ql (U) Negative Normal Negative [facility] ([place] Comment on above: Performed By: #### T SH, CMP, GFR #### [place] [address] [address] UA Appear Cloudy Abnormal Clear [facility] ([place] Comment on above: Performed By: #### T SH, CMP, GFR #### [place] [address] [address] UA Blood Moderate Abnormal Negative [facility] ([place] Comment on above: Performed By: #### T SH, CMP, GFR #### [place] [address] [address] UA Leuk Est Trace Abnormal Negative [facility] ([place] Comment on above: Performed By: #### T SH, CMP, GFR #### [place] [address] [address] UA Nitrite Negative Normal Negative [facility] ([place] Comment on above: Performed By: #### T SH, CMP, GFR #### [place] [address] [address] UA pH 6.0 Normal 5.0 - 8.0 [facility] ([place] Comment on above: Performed By: #### T SH, CMP, GFR #### [place] [address] [address] UA Protein Trace Normal Negative [facility] ([place] Comment on above: Performed By: #### T SH, CMP, GFR #### [place] [address] [address] UA Spec Grav 1.020 Normal 1.015-1.025 [facility] ([place]) Comment on above: Performed By: #### T GIOVANNA, CMP, GFR #### [place] [address] [address] UA Specimen Type Void Normal [facility] ([place] Comment on above: Performed By: #### T GIOVANNA, CMP, GFR #### [address] [address] UA Urobilinogen 0.2 E.U./dL Normal 0.2-1.0 [facility] ([place]) Comment on above: Performed By: #### T GIOVANNA, CMP, GFR #### [address] [address] Urobilinogen (U) [Mass/Vol] Negative Normal Negative [facility] ([place]) Comment on above: Performed By: #### T GIOVANNA, CMP, GFR #### [address] [address] Absolute lymphocyte countOrd ered By: Sergo Bustillos on 04-20-2023 Lymphocytes Auto (Unsp spec) [#/Vol] 2.51 10*3/uL 0.83-4.51 [facility] Basophil percentageOrdered B y: Sergo Bustillos on 04-20-2023 Basophils/100 WBC (Bld) 1.3 % 0-1 [facility] Chloride [Moles/Vol] 92 mmol/L 98-107 [facility] Eosinophils/100 WBC (Bld) 4.2 % 0-5 [facility] Glucose [Mass/Vol] 347 mg/dL 74-106 [facility] Comment on above: Glucose result great er than or equal to 200 mg/dLsuggests DIABETES MELLITUS per A.D.A. criteria. Neutrophils (Bld) [#/Vol] 5.4 10*3/uL 2.0-7.7 [facility] Neutrophils/100 WBC (Bld) 58.1 % 47-70 [facility] Potassium [Moles/Vol] 4.2 mmol/L 3.5-5.1 [facility] Sodium [Moles/Vol] 128 mmol/L 136-145 [facility] WBC (Bld) [#/Vol] 9.2 10*3/uL 4.4-11.0 [facility] Blood erythrocytes count (nu mber/volume)Ordered By: Sergo Bustillos on 04-20-2023 RBC (Bld) [#/Vol] 4.58 10*6/uL 4.2-5.4 [facility] Blood hemoglobin measurement (mass/volume)Ordered By: Sergo Bustillos on 04-20-2023 Hemoglobin (Bld) [Mass/Vol] 12.3 g/dL 12.0-15.0 [facility] Blood lymphocytes/100 leukoc ytesOrdered By: Sergo Bustillos on 04-20-2023 Lymphocytes/100 WBC (Bld) 27.2 % 19-41 [facility] Blood monocytes/100 leukocyt esOrdered By: Sergo Bustillos on 04-20-2023 Monocytes/100 WBC (Bld) 5.5 % 0-10 [facility] Blood platelet mean volumeOr dered By: Sergo Bustillos on 04-20-2023 Platelet mean volume (Bld) [Entitic vol] 10.5 fL 6.2-12.0 [facility] Determination of erythrocyte mean corpuscular volume (MCV)Ordered By: Sergo Bustillos on 04-20-2023 MCV (RBC) [Entitic vol] 84.7 fL 81-99 [facility] Glucose Glucometer (BldC) [M ass/Vol]Ordered By: Sergo Bustillos on 04-20-2023 Glucose [Mass/Vol] 352 mg/dL 74-106 [facility] Comment on above: MANAGEMENT OF PATIEN T CARE PER NURSING PROTOCOL Hematocrit Auto (Bld) [Volum e fraction]Ordered By: Sergo Bustillos on 04-20-2023 Hematocrit (Bld) [Volume fraction] 38.8 % 37-47 [facility] Laboratory - Chemistry and C hemistry - challengeOrdered By: Sergo Bustillos on 04-20-2023 CO2 [Moles/Vol] 29.0 mmol/L 21.0-32.0 [facility] Urea nitrogen/Creatinine [Mass ratio] 25.5 mg/mg 10-20 [facility] Laboratory - Hematology and Cell countsOrdered By: Sergo Bustillos on 04-20-2023 Erythrocyte distribution width (RBC) [Entitic vol] 45.1 fL 35.1-43.9 [facility] Erythrocyte distribution width (RBC) [Ratio] 14.8 % 11.6-14.6 [facility] Immature granulocytes/100 WBC (Bld) 3.700 % 0.0-0.9 [facility] Comment on above: IG% - Immature Granu locytes (promyelocytes, myelocytes and metamyelocytes) > 1% indicates that a LEFT SHIFT is Present. MCH (RBC) [Entitic mass] 26.9 pg 27.0-32.0 [facility] Nucleated RBC/100 WBC (Bld) [Ratio] 0 % 0-5 [facility] MCHC Auto (RBC) [Mass/Vol]Or dered By: Sergo Bustillos on 04-20-2023 MCHC (RBC) [Mass/Vol] 31.7 g/dL 32-36 [facility] No Panel InformationOrdered By: Sergo Bustillos on 04-20-2023 Estimated Creatinine Clearance Calc 46.47 ml/min [facility] Estimated GFR (MDRD) Amer 72 mL/min >60 [facility] Comment on above: GFR Calc Estimated GFR (MDRD) Non-Af Amer 60 mL/min >60 [facility] Comment on above: Non- GFR Calc Platelets bldOrdered By: Omer Bustillos on 04-20-2023 Platelets (Bld) [#/Vol] 213 10*3/uL 150-450 [facility] Respiratory pathogens detect ion panel by molecular detection methodOrdered By: Cecilia Villa on 04-20-2023 Respiratory pathogens DNA and RNA panel [place]+probe (Resp) [facility] Serum or plasma calcium janie urement (mass/volume)Ordered By: Sergo Bustillos on 04-20-2023 Calcium [Mass/Vol] 9.2 mg/dL 8.5-10.1 [facility] Serum or plasma creatinine m easurement (mass/volume)Ordered By: Sergo Bustillos on 04-20-2023 Creatinine [Mass/Vol] 1.02 mg/dL 0.55-1.02 [facility] Comment on above: The validity of the calculated GFR & GFRAA in patients over 70 years has not been determined. Clinical correlation is essential. Serum or plasma urea nitroge n measurement (mass/volume)Ordered By: Sergo Bustillos on 04-20-2023 Urea nitrogen [Mass/Vol] 26 mg/dL 7-18 [facility] Thin prep Papanicolaou smear with manual screeningOrdered By: Sergo Bustillos on 04-20-2023 Thin prep Papanicolaou smear with manual screening 7 5-15 [facility] Basophil percentageOrdered B y: Cecilia Villa on 04-19-2023 Basophil percentage 4.0 mg/dL 2.5-4.9 [facility] Laboratory - Chemistry and C hemistry - challengeOrdered By: Cecilia Villa on 04-19-2023 Magnesium [Mass/Vol] 1.9 mg/dL 1.6-2.6 [facility] Assessment of wrist artery p atency prior to arterial punctureOrdered By: Cecilia Villa on 04-18-2023 Arterial patency Wrist artery --pre arterial puncture Positive [facility] Base excessOrdered By: Audi Villa on 04-18-2023 Base excess Calc (BldV) [Moles/Vol] 6 mmol/L -2-2 [facility] Basophil percentageOrdered B y: Cecilia Villa on 04-18-2023 Basophil percentage 30.6 mmol/L 22- [facility] Basophils/100 WBC (Bld) 89 % 95-99 [facility] Basophil percentageOrdered B y: Candy Archuleta on 04-18-2023 Bilirubin [Mass/Vol] 0.70 mg/dL 0.20-1.00 [facility] Comment on above: For patients on eltr ombopag therapy, use of Dimension [place] TBIL is not recommended. Protein [Mass/Vol] 8.7 g/dL 6.4-8.2 [facility] Basophil percentage >100 SEEN /hpf 0-5 [facility] Bilirubin Test strip Ql (U)O rdered By: Candy Archuleta on 04-18-2023 Bilirubin Ql (U) Negative Negative [facility] CO2 (BldA) [Partial pressure ]Ordered By: Cecilia Villa on 04-18-2023 CO2 (Bld) [Partial pressure] 46.4 mm[Hg] 35-45 [facility] Culture, urineOrdered By: Ramiro Archuleta on 04-18-2023 Bacteria identified Cx Nom (U) Escherichia coli [facility] Ketones Test strip Ql (U)Ord ered By: Candy Archuleta on 04-18-2023 Ketones Ql (U) Negative Negative [facility] Laboratory - Chemistry and C hemistry - challengeOrdered By: Candy Archuleta on 04-18-2023 ALP [Catalytic activity/Vol] 220 U/L 45-117 [facility] ALT [Catalytic activity/Vol] 50 U/L 13-56 [facility] Globulin (S) [Mass/Vol] 5.7 g/dL 2.2-4.2 [facility] Lipase [Catalytic activity/Vol] 26 U/L 13-75 [facility] Comment on above: Please note:LIPASE r evised reference range effective 22. New Lipase methodology. Expected to produce lower values than the previous assay method. NEW Reference Range: 13 - 75 U/L Natriuretic peptide B (Bld) [Mass/Vol] 6.4 pg/mL 0-100 [facility] Mucus LM Ql (Urine sed)Order ed By: Candy Archuleta on 04-18-2023 Mucus Ql (Urine sed) 0 SEEN /hpf [facility] Nitrite Test strip Ql (U)Ord ered By: Candy Archuleta on 04-18-2023 Nitrite Ql (U) Negative Negative [facility] No Panel InformationOrdered By: Cecilia Villa on 04-18-2023 Blood Gas Sample Site L Radial [facility] Blood Gas Specimen Type ART [facility] Blood Gas Total CO2 32 mmol/L [facility] Blood Gas Vent Mode Not entered [facility] Oxygen Delivery Device Room Air [facility] D-Dimer Quantitative (PE/DVT) 0.54 FEU/ug/m 0.27-0.49 [facility] Comment on above: CRITICAL VALUE VERIF IED. CALLED TO DILAN MONTEJO RN ER 04/18/23 [id number] Josef Barcenas.RESULTS READ BACK BY SAME . D-Dimer ELEVATED (>0.49): Additional studies and clinicalassessments are indicated to conclude diagnosis of:Deep Vein Thrombosis (DVT) or Pulmonary Embolism (PE) Oxygen (BldA) [Partial press ure]Ordered By: Cecilia Villa on 04-18-2023 Oxygen (Bld) [Partial pressure] 55 mmHG 75-100 [facility] Protein Test strip Ql (U)Ord ered By: Candy Archuleta on 04-18-2023 Protein Ql (U) 30 mg/dl Negative [facility] Serum or plasma albumin janie urement (mass/volume)Ordered By: Candy Archuleta on 04-18-2023 Albumin [Mass/Vol] 3.0 g/dL 3.2-5.0 [facility] Serum or plasma albumin/glob ulin mass ratioOrdered By: Candy Archuleta on 04-18-2023 Albumin/Globulin [Mass ratio] 0.5 {ratio} 0.9-2.4 [facility] Squamous epithelial cells de tection in urine sediment by light microscopyOrdered By: Candy Archuleta on 04-18-2023 Epithelial cells.squamous LM Ql (Urine sed) 10-25 SEEN /hpf 5-10 [facility] Thin prep Papanicolaou smear with manual screeningOrdered By: Candy Archuleta on 04-18-2023 Thin prep Papanicolaou smear with manual screening 48 U/L 15-37 [facility] Comment on above: Moderate Hemolysis, Result may be falsely increased. Urine blood detectionOrdered By: Candy Archuleta on 04-18-2023 RBC Ql (U) 150 /ul Negative [facility] RBC Ql (U) 10-25 SEEN /hpf 0-5 [facility] Urine clarityOrdered By: Maria T Archuleta on 04-18-2023 Clarity (U) Cloudy Clear [facility] Urine color determinationOrd ered By: Candy Archuleta on 04-18-2023 Color (U) Yellow Yellow [facility] Urine glucose detectionOrder ed By: Candy Archuleta on 04-18-2023 Glucose Ql (U) 1000 mg/dl Normal [facility] Urine leukocyte esterase det ection by dipstickOrdered By: Candy Archuleta on 04-18-2023 Leukocyte esterase Test strip Ql (U) 500 /ul Negative [facility] Urine pHOrdered By: Candy hendrix on 04-18-2023 pH (U) 6.0 [pH] 5.0 - 8.0 [facility] Urine sediment bacteria coun t by microscopy (number/high power field)Ordered By: Candy Archuleta on 04-18-2023 Bacteria LM.HPF (Urine sed) [#/Area] 2 /[HPF] None Seen [facility] Urine specific gravity measu rementOrdered By: Candy Archuleta on 04-18-2023 Specific gravity (U) [Rel density] 1.015 1.002-1.030 [facility] Urobilinogen Auto test strip Ql (U)Ordered By: Candy Archuleta on 04-18-2023 Urobilinogen Ql (U) 1 mg/dl Normal [facility] pH measurementOrdered By: Yared Villa on 04-18-2023 pH (Unsp spec) 7.43 [pH] 7.35-7.45 [facility] Basophil percentageOrdered B y: Jaziel Drake on 04-17-2023 Cholesterol [Mass/Vol] 135 mg/dL <200 [facility] Comment on above: <200 mg/dL Desirable 200-240 mg/dL Borderline >240 mg/dL High Risk Triglyceride [Mass/Vol] 314 mg/dL <199 [facility] Comment on above: The drugs N-Acetylcy steine and Metamizole may falsely depress this assay.Serum Triglycerides Reference Interval Normal <150 mg/dL Borderline high 150 - 199 mg/dL High 200 - 499 mg/dL Very High > or = 500 mg/dL Laboratory - Chemistry and C hemistry - challengeOrdered By: Jaziel Drake on 04-17-2023 Free T4 [Mass/Vol] 0.75 ng/dL 0.76-1.46 [facility] No Panel InformationOrdered By: Jaziel Drake on 04-17-2023 Thyroid Stimulating Hormone (TSH) 3.79 uIU/mL 0.358-3.74 [facility] Vitamin D 25-Hydroxy 22.2 ng/mL [facility] Comment on above: Vitamin D 25(OH) Sta tus Range Deficiency <20 ng/mL (50nmol/L) Insufficiency 20 - 30 ng/mL (50 - 75 nmol/L) Sufficiency 30 - 100 ng/mL (75 - 250 nmol/L) Toxicity >100 ng/mL (>250 nmol/L) Serum or plasma cholesterol in HDL measurement (mass/volume)Ordered By: Jaziel Drake on 04-17-2023 Cholesterol in HDL [Mass/Vol] 28 mg/dL >40 [facility] Comment on above: The drugs N-Acetylcy steine and Metamizole may falsely depress this assay. Reference Range HDL <40 mg/dL Low HDL Cholesterol HDL >or= 60 mg/dL High HDL Cholesterol Serum or plasma cholesterol in VLDL measurement (mass/volume)Ordered By: Jaziel Drake on 04-17-2023 Cholesterol in VLDL [Mass/Vol] 63 mg/dL 5-40 [facility] Serum or plasma low density lipoprotein (LDL) cholesterol measurement (mass/volume)Ordered By: Jaziel Drake on 04-17-2023 Cholesterol in LDL [Mass/Vol] 44 mg/dL 0-130 [facility] Laboratory - Hematology and Cell countson 02-18-2023 HbA1c (Bld) [Mass fraction] 10.8 % 4.2-6.3 [facility] Absolute lymphocyte countOrd ered By: Joel Mendoza on 01-20-2023 Lymphocytes Auto (Unsp spec) [#/Vol] 2.86 10*3/uL 0.83-4.51 [facility] Amorphous sediment detection in urine sediment by light microscopyOrdered By: Joel Mendoza on 01-20-2023 Amorphous sediment LM Ql (Urine sed) 1+ URATE [facility] Basophil percentageOrdered B y: Joel Mendoza on 01-20-2023 Basophil percentage 50-100 SEEN /hpf 0-5 [facility] Basophils/100 WBC (Bld) 0.8 % 0-1 [facility] Chloride [Moles/Vol] 99 mmol/L 98-107 [facility] Eosinophils/100 WBC (Bld) 2.0 % 0-5 [facility] Glucose [Mass/Vol] 148 mg/dL 74-106 [facility] Comment on above: Fasting Glucose resu lt greater than or equal to 126 mg/dL suggests DIABETES MELLITUS per A.D.A. criteria. Neutrophils (Bld) [#/Vol] 6.9 10*3/uL 2.0-7.7 [facility] Neutrophils/100 WBC (Bld) 64.6 % 47-70 [facility] Potassium [Moles/Vol] 4.9 mmol/L 3.5-5.1 [facility] Comment on above: Moderate Hemolysis, Result may be falsely increased. Sodium [Moles/Vol] 132 mmol/L 136-145 [facility] WBC (Bld) [#/Vol] 10.7 10*3/uL 4.4-11.0 [facility] Bilirubin Test strip Ql (U)O rdered By: Joel Mendoza on 01-20-2023 Bilirubin Ql (U) 1 mg/dL Negative [facility] Comment on above: COLOR OF URINE MAY A FFECT DIPSTICK RESULTS. Blood erythrocytes count (nu mber/volume)Ordered By: Joel Mendoza on 01-20-2023 RBC (Bld) [#/Vol] 4.89 10*6/uL 4.2-5.4 [facility] Blood hemoglobin measurement (mass/volume)Ordered By: Joel Mendoza on 01-20-2023 Hemoglobin (Bld) [Mass/Vol] 12.8 g/dL 12.0-15.0 [facility] Blood lymphocytes/100 leukoc ytesOrdered By: Joel Mendoza on 01-20-2023 Lymphocytes/100 WBC (Bld) 26.6 % 19-41 [facility] Blood monocytes/100 leukocyt esOrdered By: Joel Mendoza on 01-20-2023 Monocytes/100 WBC (Bld) 5.4 % 0-10 [facility] Blood platelet mean volumeOr dered By: Joel Mendoza on 01-20-2023 Platelet mean volume (Bld) [Entitic vol] 10.3 fL 6.2-12.0 [facility] Culture, urineOrdered By: Alisa Mendoza on 01-20-2023 Bacteria identified Cx Nom (U) Presumptive Lactobacillus sp. [facility] Determination of erythrocyte mean corpuscular volume (MCV)Ordered By: Joel Mendoza on 01-20-2023 MCV (RBC) [Entitic vol] 82.4 fL 81-99 [facility] Hematocrit Auto (Bld) [Volum e fraction]Ordered By: Joel Mendoza on 01-20-2023 Hematocrit (Bld) [Volume fraction] 40.3 % 37-47 [facility] Ketones Test strip Ql (U)Ord ered By: Joel Mendoza on 01-20-2023 Ketones Ql (U) 5 mg/dl Negative [facility] Laboratory - Chemistry and C hemistry - challengeOrdered By: Joel Mendoza on 01-20-2023 CO2 [Moles/Vol] 30.0 mmol/L 21.0-32.0 [facility] Natriuretic peptide B (Bld) [Mass/Vol] 6.0 pg/mL 0-100 [facility] Urea nitrogen/Creatinine [Mass ratio] 16.5 mg/mg 10-20 [facility] Laboratory - Hematology and Cell countsOrdered By: Joel Mendoza on 01-20-2023 Erythrocyte distribution width (RBC) [Entitic vol] 43.8 fL 35.1-43.9 [facility] Erythrocyte distribution width (RBC) [Ratio] 14.7 % 11.6-14.6 [facility] Immature granulocytes/100 WBC (Bld) 0.600 % 0.0-0.9 [facility] Comment on above: IG% - Immature Granu locytes (promyelocytes, myelocytes and metamyelocytes) > 1% indicates that a LEFT SHIFT is Present. MCH (RBC) [Entitic mass] 26.2 pg 27.0-32.0 [facility] Nucleated RBC/100 WBC (Bld) [Ratio] 0 % 0-5 [facility] MCHC Auto (RBC) [Mass/Vol]Or dered By: Joel Mendoza on 01-20-2023 MCHC (RBC) [Mass/Vol] 31.8 g/dL 32-36 [facility] Mucus LM Ql (Urine sed)Order ed By: Joel Mendoza on 01-20-2023 Mucus Ql (Urine sed) 0 SEEN /hpf [facility] Nitrite Test strip Ql (U)Ord ered By: Joel Mendoza on 01-20-2023 Nitrite Ql (U) Negative Negative [facility] No Panel InformationOrdered By: Joel Mendoza on 01-20-2023 Estimated Creatinine Clearance Calc 39.17 ml/min [facility] Estimated GFR (MDRD) Amer 59 mL/min >60 [facility] Comment on above: GFR Calc Estimated GFR (MDRD) Non-Af Amer 49 mL/min >60 [facility] Comment on above: Non- GFR Calc Thyroid Stimulating Hormone (TSH) 4.15 uIU/mL 0.358-3.74 [facility] Platelets bldOrdered By: Kimi Mendoza on 01-20-2023 Platelets (Bld) [#/Vol] 236 10*3/uL 150-450 [facility] Protein Test strip Ql (U)Ord ered By: Joel Mendoza on 01-20-2023 Protein Ql (U) 100 mg/dl Negative [facility] Serum or plasma calcium janie urement (mass/volume)Ordered By: Joel Mendoza on 01-20-2023 Calcium [Mass/Vol] 9.2 mg/dL 8.5-10.1 [facility] Serum or plasma creatinine m easurement (mass/volume)Ordered By: Joel Mendoza on 01-20-2023 Creatinine [Mass/Vol] 1.21 mg/dL 0.55-1.02 [facility] Comment on above: The validity of the calculated GFR & GFRAA in patients over 70 years has not been determined. Clinical correlation is essential. Serum or plasma urea nitroge n measurement (mass/volume)Ordered By: Joel Mendoza on 01-20-2023 Urea nitrogen [Mass/Vol] 20 mg/dL 7-18 [facility] Squamous epithelial cells de tection in urine sediment by light microscopyOrdered By: Joel Mendoza on 01-20-2023 Epithelial cells.squamous LM Ql (Urine sed) 0-5 SEEN /hpf 5-10 [facility] Thin prep Papanicolaou smear with manual screeningOrdered By: Joel Mendoza on 01-20-2023 Thin prep Papanicolaou smear with manual screening 3 5-15 [facility] Urine blood detectionOrdered By: Joel Mendoza on 01-20-2023 RBC Ql (U) 250 /ul Negative [facility] RBC Ql (U) 25-50 SEEN /hpf 0-5 [facility] Urine clarityOrdered By: Kimi Mendoza on 01-20-2023 Clarity (U) Cloudy Clear [facility] Urine color determinationOrd ered By: Joel Mendoza on 01-20-2023 Color (U) Yellow Yellow [facility] Urine glucose detectionOrder ed By: Joel Mendoza on 01-20-2023 Glucose Ql (U) Normal mg/dl Normal [facility] Urine leukocyte esterase det ection by dipstickOrdered By: Joel Mendoza on 01-20-2023 Leukocyte esterase Test strip Ql (U) 500 /ul Negative [facility] Urine pHOrdered By: Joel lamar on 01-20-2023 pH (U) 5.0 [pH] 5.0 - 8.0 [facility] Urine sediment bacteria coun t by microscopy (number/high power field)Ordered By: Joel Mendoza on 01-20-2023 Bacteria LM.HPF (Urine sed) [#/Area] 0 /[HPF] None Seen [facility] Urine sediment yeast count b y microscopy (number/high powered field)Ordered By: Joel Mendoza on 01-20-2023 Yeast LM.HPF (Urine sed) [#/Area] RARE /hpf None Seen [facility] Urine specific gravity measu rementOrdered By: Joel Mendoza on 01-20-2023 Specific gravity (U) [Rel density] 1.020 1.002-1.030 [facility] Urobilinogen Auto test strip Ql (U)Ordered By: Joel Mendoza on 01-20-2023 Urobilinogen Ql (U) 4 mg/dl Normal [facility] Absolute lymphocyte countOrd ered By: Dr. Hill on 01-07-2023 Lymphocytes Auto (Unsp spec) [#/Vol] 2.80 10*3/uL 0.83-4.51 [facility] Basophil percentageOrdered B y: Dr. Hill on 01-07-2023 Basophil percentage 10-25 SEEN /hpf 0-5 [facility] Basophils/100 WBC (Bld) 0.9 % 0-1 [facility] Chloride [Moles/Vol] 95 mmol/L 98-107 [facility] Eosinophils/100 WBC (Bld) 1.8 % 0-5 [facility] Glucose [Mass/Vol] 413 mg/dL 74-106 [facility] Comment on above: Glucose result great er than or equal to 200 mg/dLsuggests DIABETES MELLITUS per A.D.A. criteria. Neutrophils (Bld) [#/Vol] 5.5 10*3/uL 2.0-7.7 [facility] Neutrophils/100 WBC (Bld) 60.2 % 47-70 [facility] Potassium [Moles/Vol] 4.4 mmol/L 3.5-5.1 [facility] Sodium [Moles/Vol] 130 mmol/L 136-145 [facility] WBC (Bld) [#/Vol] 9.0 10*3/uL 4.4-11.0 [facility] Bilirubin Test strip Ql (U)O rdered By: Dr. Hill on 01-07-2023 Bilirubin Ql (U) Negative Negative [facility] Blood erythrocytes count (nu mber/volume)Ordered By: Dr. Hill on 01-07-2023 RBC (Bld) [#/Vol] 5.46 10*6/uL 4.2-5.4 [facility] Blood hemoglobin measurement (mass/volume)Ordered By: Dr. Hill on 01-07-2023 Hemoglobin (Bld) [Mass/Vol] 14.1 g/dL 12.0-15.0 [facility] Blood lymphocytes/100 leukoc ytesOrdered By: Dr. Hill on 01-07-2023 Lymphocytes/100 WBC (Bld) 31.0 % 19-41 [facility] Blood monocytes/100 leukocyt esOrdered By: Dr. Hill on 01-07-2023 Monocytes/100 WBC (Bld) 4.8 % 0-10 [facility] [facility] Blood platelet mean volumeOr dered By: Dr. Hill on 01-07-2023 Platelet mean volume (Bld) [Entitic vol] 9.9 fL 6.2-12.0 [facility] Determination of erythrocyte mean corpuscular volume (MCV)Ordered By: Dr. Hill on 01-07-2023 MCV (RBC) [Entitic vol] 81.7 fL 81-99 [facility] Glucose Glucometer (BldC) [M ass/Vol]Ordered By: Dr. Hill on 01-07-2023 Glucose [Mass/Vol] 372 mg/dL 74-106 [facility] Comment on above: MANAGEMENT OF PATIEN T CARE PER NURSING PROTOCOL HCO3 (BldA) [Moles/Vol]Order ed By: Dr. Hill on 01-07-2023 HCO3 (Bld) [Moles/Vol] 32 mmol/L 22-26 [facility] Hematocrit Auto (Bld) [Volum e fraction]Ordered By: Dr. Hill on 01-07-2023 Hematocrit (Bld) [Volume fraction] 44.6 % 37-47 [facility] Ketones Test strip Ql (U)Ord ered By: Dr. Hill on 01-07-2023 Ketones Ql (U) Negative Negative [facility] Laboratory - Chemistry and C hemistry - challengeOrdered By: Dr. Hill on 01-07-2023 CO2 [Moles/Vol] 34 mmol/L 23-33 [facility] CO2 [Moles/Vol] 30.0 mmol/L 21.0-32.0 [facility] Urea nitrogen/Creatinine [Mass ratio] 13.3 mg/mg 10-20 [facility] Laboratory - Hematology and Cell countsOrdered By: Dr. Hill on 01-07-2023 Erythrocyte distribution width (RBC) [Entitic vol] 43.7 fL 35.1-43.9 [facility] Erythrocyte distribution width (RBC) [Ratio] 14.9 % 11.6-14.6 [facility] Immature granulocytes/100 WBC (Bld) 1.300 % 0.0-0.9 [facility] Comment on above: IG% - Immature Granu locytes (promyelocytes, myelocytes and metamyelocytes) > 1% indicates that a LEFT SHIFT is Present. MCH (RBC) [Entitic mass] 25.8 pg 27.0-32.0 [facility] Nucleated RBC/100 WBC (Bld) [Ratio] 0 % 0-5 [facility] MCHC Auto (RBC) [Mass/Vol]Or dered By: Dr. Hill on 01-07-2023 MCHC (RBC) [Mass/Vol] 31.6 g/dL 32-36 [facility] Mucus LM Ql (Urine sed)Order ed By: Dr. Hill on 01-07-2023 Mucus Ql (Urine sed) 0 SEEN /hpf [facility] Nitrite Test strip Ql (U)Ord ered By: Dr. Hill on 01-07-2023 Nitrite Ql (U) Negative Negative [facility] No Panel InformationOrdered By: Dr. Hill on 01-07-2023 Bed Mix Venous Bld PCO2 at Pat Temp 56.7 mmHg 41-51 [facility] Blood Gas Specimen Type SATHYA [facility] Venous Blood Base Excess 7 mmol/L -1.0-3.5 [facility] Estimated Creatinine Clearance Calc 48.37 ml/min [facility] Estimated GFR (MDRD) Amer 76 mL/min >60 [facility] Comment on above: GFR Calc Estimated GFR (MDRD) Non-Af Amer 63 mL/min >60 [facility] Comment on above: Non- GFR Calc PO2 venousOrdered By: Dr. Kumar hood on 01-07-2023 Oxygen (BldV) [Partial pressure] 37 mm[Hg] 25-40 [facility] Platelets bldOrdered By: Dr. Hill on 01-07-2023 Platelets (Bld) [#/Vol] 235 10*3/uL 150-450 [facility] Protein Test strip Ql (U)Ord ered By: Dr. Hill on 01-07-2023 Protein Ql (U) 15 mg/dl Negative [facility] Serum or plasma acetone janie urement (mass/volume)Ordered By: Dr. Hill on 01-07-2023 Acetone [Mass/Vol] Negative NEG [facility] Serum or plasma calcium janie urement (mass/volume)Ordered By: Dr. Hill on 01-07-2023 Calcium [Mass/Vol] 9.6 mg/dL 8.5-10.1 [facility] Serum or plasma creatinine m easurement (mass/volume)Ordered By: Dr. Hill on 01-07-2023 Creatinine [Mass/Vol] 0.98 mg/dL 0.55-1.02 [facility] Comment on above: The validity of the calculated GFR & GFRAA in patients over 70 years has not been determined. Clinical correlation is essential. Serum or plasma urea nitroge n measurement (mass/volume)Ordered By: Dr. Hill on 01-07-2023 Urea nitrogen [Mass/Vol] 13 mg/dL 7-18 [facility] Squamous epithelial cells de tection in urine sediment by light microscopyOrdered By: Dr. Hill on 01-07-2023 Epithelial cells.squamous LM Ql (Urine sed) 0-5 SEEN /hpf 5-10 [facility] Thin prep Papanicolaou smear with manual screeningOrdered By: Dr. Hill on 01-07-2023 Thin prep Papanicolaou smear with manual screening 5 5-15 [facility] Urine blood detectionOrdered By: Dr. Hill on 01-07-2023 RBC Ql (U) 50 /ul Negative [facility] RBC Ql (U) 0-5 SEEN /hpf 0-5 [facility] Urine clarityOrdered By: Dr. Hill on 01-07-2023 Clarity (U) Sl. Cloudy Clear [facility] Urine color determinationOrd ered By: Dr. Hill on 01-07-2023 Color (U) Yellow Yellow [facility] Urine glucose detectionOrder ed By: Dr. Hill on 01-07-2023 Glucose Ql (U) 1000 mg/dl Normal [facility] Urine leukocyte esterase det ection by dipstickOrdered By: Dr. Hill on 01-07-2023 Leukocyte esterase Test strip Ql (U) 25 /ul Negative [facility] Urine pHOrdered By: Dr. Danny fall on 01-07-2023 pH (U) 7.0 [pH] 5.0 - 8.0 [facility] Urine sediment bacteria coun t by microscopy (number/high power field)Ordered By: Dr. Hill on 01-07-2023 Bacteria LM.HPF (Urine sed) [#/Area] 0 /[HPF] None Seen [facility] Urine specific gravity measu rementOrdered By: Dr. Hill on 01-07-2023 Specific gravity (U) [Rel density] 1.010 1.002-1.030 [facility] Urobilinogen Auto test strip Ql (U)Ordered By: Dr. Hill on 01-07-2023 Urobilinogen Ql (U) Normal mg/dl Normal [facility] Vital signsOrdered By: Dr. Tosha florez on 01-07-2023 Oxygen saturation in Blood 66 % 50-70 [facility] pH measurementOrdered By: Dr Catie Hill on 01-07-2023 pH (Unsp spec) 7.36 [pH] 7.32-7.42 [facility] Absolute lymphocyte countOrd ered By: Dr. Hernandez on 10-25-2022 Lymphocytes Auto (Unsp spec) [#/Vol] 2.24 10*3/uL 0.83-4.51 [facility] Basophil percentageOrdered B y: Dr. Hernandez on 10-25-2022 Basophils/100 WBC (Bld) 0.7 % 0-1 [facility] Chloride [Moles/Vol] 98 mmol/L 98-107 [facility] Eosinophils/100 WBC (Bld) 2.1 % 0-5 [facility] Glucose [Mass/Vol] 366 mg/dL 74-106 [facility] Comment on above: Glucose result great er than or equal to 200 mg/dLsuggests DIABETES MELLITUS per A.D.A. criteria. Neutrophils (Bld) [#/Vol] 4.4 10*3/uL 2.0-7.7 [facility] Neutrophils/100 WBC (Bld) 60.3 % 47-70 [facility] Potassium [Moles/Vol] 4.2 mmol/L 3.5-5.1 [facility] Sodium [Moles/Vol] 132 mmol/L 136-145 [facility] WBC (Bld) [#/Vol] 7.3 10*3/uL 4.4-11.0 [facility] Blood erythrocytes count (nu mber/volume)Ordered By: Dr. Hernandez on 10-25-2022 RBC (Bld) [#/Vol] 4.69 10*6/uL 4.2-5.4 [facility] Blood hemoglobin measurement (mass/volume)Ordered By: Dr. Hernandez on 10-25-2022 Hemoglobin (Bld) [Mass/Vol] 12.1 g/dL 12.0-15.0 [facility] Blood lymphocytes/100 leukoc ytesOrdered By: Dr. Hernandez on 10-25-2022 Lymphocytes/100 WBC (Bld) 30.7 % 19-41 [facility] Blood monocytes/100 leukocyt esOrdered By: Dr. Hernandez on 10-25-2022 Monocytes/100 WBC (Bld) 5.2 % 0-10 [facility] Blood platelet mean volumeOr dered By: Dr. Hernandez on 10-25-2022 Platelet mean volume (Bld) [Entitic vol] 9.8 fL 6.2-12.0 [facility] Determination of erythrocyte mean corpuscular volume (MCV)Ordered By: Dr. Hernandez on 10-25-2022 MCV (RBC) [Entitic vol] 80.8 fL 81-99 [facility] Hematocrit Auto (Bld) [Volum e fraction]Ordered By: Dr. Hernandez on 10-25-2022 Hematocrit (Bld) [Volume fraction] 37.9 % 37-47 [facility] Laboratory - Chemistry and C hemistry - challengeOrdered By: Dr. Hernandez on 10-25-2022 CO2 [Moles/Vol] 30.0 mmol/L 21.0-32.0 [facility] Free T4 [Mass/Vol] 1.22 ng/dL 0.76-1.46 [facility] Natriuretic peptide B (Bld) [Mass/Vol] 10.6 pg/mL 0-100 [facility] Urea nitrogen/Creatinine [Mass ratio] 22.8 mg/mg 10-20 [facility] Laboratory - Hematology and Cell countsOrdered By: Dr. Hernandez on 10-25-2022 Erythrocyte distribution width (RBC) [Entitic vol] 45.1 fL 35.1-43.9 [facility] Erythrocyte distribution width (RBC) [Ratio] 15.5 % 11.6-14.6 [facility] Immature granulocytes/100 WBC (Bld) 1.000 % 0.0-0.9 [facility] Comment on above: IG% - Immature Granu locytes (promyelocytes, myelocytes and metamyelocytes) > 1% indicates that a LEFT SHIFT is Present. MCH (RBC) [Entitic mass] 25.8 pg 27.0-32.0 [facility] Nucleated RBC/100 WBC (Bld) [Ratio] 0 % 0-5 [facility] MCHC Auto (RBC) [Mass/Vol]Or dered By: Dr. Hernandez on 10-25-2022 MCHC (RBC) [Mass/Vol] 31.9 g/dL 32-36 [facility] No Panel InformationOrdered By: Dr. Hernandez on 10-25-2022 Estimated Creatinine Clearance Calc 57.10 ml/min [facility] Estimated GFR (MDRD) Amer 91 mL/min >60 [facility] Comment on above: GFR Calc Estimated GFR (MDRD) Non-Af Amer 75 mL/min >60 [facility] Comment on above: Non- GFR Calc Free Triiodothyronine (T3) pg/dL 2.7 pg/mL 2.18-3.98 [facility] Thyroid Stimulating Hormone (TSH) 0.34 uIU/mL 0.358-3.74 [facility] Troponin I High Sensitivity 37 pg/mL 3.0-54.0 [facility] Comment on above: Please Note: [place] Units and Gender Specific Reference Ranges. For more information see Policy Stat Procedure [place] High Sensitivity Troponin (TNIH) and attachments. Platelets bldOrdered By: Dr. Hernandez on 10-25-2022 Platelets (Bld) [#/Vol] 207 10*3/uL 150-450 [facility] Serum or plasma calcium janie urement (mass/volume)Ordered By: Dr. Hernandez on 10-25-2022 Calcium [Mass/Vol] 9.2 mg/dL 8.5-10.1 [facility] Serum or plasma creatinine m easurement (mass/volume)Ordered By: Dr. Hernandez on 10-25-2022 Creatinine [Mass/Vol] 0.84 mg/dL 0.55-1.02 [facility] Comment on above: The validity of the calculated GFR & GFRAA in patients over 70 years has not been determined. Clinical correlation is essential. Serum or plasma urea nitroge n measurement (mass/volume)Ordered By: Dr. Hernandez on 10-25-2022 Urea nitrogen [Mass/Vol] 19 mg/dL 7-18 [facility] Thin prep Papanicolaou smear with manual screeningOrdered By: Dr. Hernandez on 10-25-2022 Thin prep Papanicolaou smear with manual screening 4 5-15 [facility] Culture, urineOrdered By: Dr Catie Rivera on 10-12-2022 Bacteria identified Cx Nom (U) Presumptive E. coli [facility] Basophil percentageOrdered B y: Dr. Rivera on 10-10-2022 Basophil percentage >100 SEEN /hpf 0-5 [facility] Comment on above: Microscopic field is filled. Other elements may be obscured. Bilirubin Test strip Ql (U)O rdered By: Dr. Rivera on 10-10-2022 Bilirubin Ql (U) Negative Negative [facility] Culture, urineOrdered By: Jeffery Rivera on 10-10-2022 Bacteria identified Cx Nom (U) Presumptive E. coli [facility] Ketones Test strip Ql (U)Ord ered By: Dr. Rivera on 10-10-2022 Ketones Ql (U) Negative Negative [facility] Mucus LM Ql (Urine sed)Order ed By: Dr. Rivera on 10-10-2022 Mucus Ql (Urine sed) 0 SEEN /hpf [facility] Nitrite Test strip Ql (U)Ord ered By: Dr. Rivera on 10-10-2022 Nitrite Ql (U) Positive Negative [facility] Protein Test strip Ql (U)Ord ered By: Dr. Rivera on 10-10-2022 Protein Ql (U) 100 mg/dl Negative [facility] Squamous epithelial cells de tection in urine sediment by light microscopyOrdered By: Dr. Rivera on 10-10-2022 Epithelial cells.squamous LM Ql (Urine sed) 0 SEEN /hpf 5-10 [facility] Urine blood detectionOrdered By: Dr. Rivera on 10-10-2022 RBC Ql (U) 150 /ul Negative [facility] RBC Ql (U) 25-50 SEEN /hpf 0-5 [facility] Urine clarityOrdered By: Dr. Rivera on 10-10-2022 Clarity (U) Turbid Clear [facility] Urine color determinationOrd ered By: Dr. Rivera on 10-10-2022 Color (U) Yellow Yellow [facility] Urine glucose detectionOrder ed By: Dr. Rivera on 10-10-2022 Glucose Ql (U) Normal mg/dl Normal [facility] Urine leukocyte esterase det ection by dipstickOrdered By: Dr. Rivera on 10-10-2022 Leukocyte esterase Test strip Ql (U) 500 /ul Negative [facility] Urine pHOrdered By: Dr. Joaquin lozada on 10-10-2022 pH (U) 6.5 [pH] 5.0 - 8.0 [facility] Urine sediment bacteria coun t by microscopy (number/high power field)Ordered By: Dr. Rivera on 10-10-2022 Bacteria LM.HPF (Urine sed) [#/Area] 4 /[HPF] None Seen [facility] Urine specific gravity measu rementOrdered By: Dr. Rivera on 10-10-2022 Specific gravity (U) [Rel density] 1.015 1.002-1.030 [facility] Urobilinogen Auto test strip Ql (U)Ordered By: Dr. Rivera on 10-10-2022 Urobilinogen Ql (U) Normal mg/dl Normal [facility] STREP A MOLECULAR (POC)on Procedural Control Valid [facility] Strep A (POCT) Negative Negative [facility] Absolute lymphocyte countOrd ered By: Dr. Hernandez on 09-21-2022 Lymphocytes Auto (Unsp spec) [#/Vol] 2.57 10*3/uL 0.83-4.51 [facility] Basophil percentageOrdered B y: Dr. Hernandez on 09-21-2022 Basophil percentage 25-50 SEEN /hpf 0-5 [facility] Basophils/100 WBC (Bld) 0.6 % 0-1 [facility] Chloride [Moles/Vol] 101 mmol/L 98-107 [facility] Eosinophils/100 WBC (Bld) 2.7 % 0-5 [facility] Glucose [Mass/Vol] 245 mg/dL 74-106 [facility] Comment on above: Glucose result great er than or equal to 200 mg/dLsuggests DIABETES MELLITUS per A.D.A. criteria. Neutrophils (Bld) [#/Vol] 4.7 10*3/uL 2.0-7.7 [facility] Neutrophils/100 WBC (Bld) 58.1 % 47-70 [facility] Potassium [Moles/Vol] 4.0 mmol/L 3.5-5.1 [facility] Sodium [Moles/Vol] 138 mmol/L 136-145 [facility] WBC (Bld) [#/Vol] 8.1 10*3/uL 4.4-11.0 [facility] Bilirubin Test strip Ql (U)O rdered By: Dr. Hernandez on 09-21-2022 Bilirubin Ql (U) Negative Negative [facility] Blood erythrocytes count (nu mber/volume)Ordered By: Dr. Hernandez on 09-21-2022 RBC (Bld) [#/Vol] 4.40 10*6/uL 4.2-5.4 [facility] Blood hemoglobin measurement (mass/volume)Ordered By: Dr. Hernandez on 09-21-2022 Hemoglobin (Bld) [Mass/Vol] 10.8 g/dL 12.0-15.0 [facility] Blood lymphocytes/100 leukoc ytesOrdered By: Dr. Hernandez on 09-21-2022 Lymphocytes/100 WBC (Bld) 31.8 % 19-41 [facility] Blood monocytes/100 leukocyt esOrdered By: Dr. Hernandez on 09-21-2022 Monocytes/100 WBC (Bld) 5.2 % 0-10 [facility] Blood platelet mean volumeOr dered By: Dr. Hernandez on 09-21-2022 Platelet mean volume (Bld) [Entitic vol] 9.8 fL 6.2-12.0 [facility] Determination of erythrocyte mean corpuscular volume (MCV)Ordered By: Dr. Hernandez on 09-21-2022 MCV (RBC) [Entitic vol] 80.9 fL 81-99 [facility] Glucose Glucometer (BldC) [M ass/Vol]Ordered By: ED PROVIDER on 09-21-2022 Glucose [Mass/Vol] 235 mg/dL 74-106 [facility] Comment on above: MANAGEMENT OF PATIEN T CARE PER NURSING PROTOCOL Hematocrit Auto (Bld) [Volum e fraction]Ordered By: Dr. Hernandez on 09-21-2022 Hematocrit (Bld) [Volume fraction] 35.6 % 37-47 [facility] Ketones Test strip Ql (U)Ord ered By: Dr. Hernandez on 09-21-2022 Ketones Ql (U) Negative Negative [facility] Laboratory - Chemistry and C hemistry - challengeOrdered By: Dr. Hernandez on 09-21-2022 CO2 [Moles/Vol] 32.0 mmol/L 21.0-32.0 [facility] Natriuretic peptide B (Bld) [Mass/Vol] 41.3 pg/mL 0-100 [facility] Urea nitrogen/Creatinine [Mass ratio] 21.0 mg/mg 10-20 [facility] Laboratory - Hematology and Cell countsOrdered By: Dr. Hernandez on 09-21-2022 Erythrocyte distribution width (RBC) [Entitic vol] 42.4 fL 35.1-43.9 [facility] Erythrocyte distribution width (RBC) [Ratio] 14.6 % 11.6-14.6 [facility] Immature granulocytes/100 WBC (Bld) 1.600 % 0.0-0.9 [facility] Comment on above: IG% - Immature Granu locytes (promyelocytes, myelocytes and metamyelocytes) > 1% indicates that a LEFT SHIFT is Present. MCH (RBC) [Entitic mass] 24.5 pg 27.0-32.0 [facility] Nucleated RBC/100 WBC (Bld) [Ratio] 0 % 0-5 [facility] MCHC Auto (RBC) [Mass/Vol]Or dered By: Dr. Hernandez on 09-21-2022 MCHC (RBC) [Mass/Vol] 30.3 g/dL 32-36 [facility] Mucus LM Ql (Urine sed)Order ed By: Dr. Hernandez on 09-21-2022 Mucus Ql (Urine sed) 1+ /hpf [facility] Nitrite Test strip Ql (U)Ord ered By: Dr. Hernandez on 09-21-2022 Nitrite Ql (U) Negative Negative [facility] No Panel InformationOrdered By: Dr. Hernandez on 09-21-2022 Estimated Creatinine Clearance Calc 71.59 ml/min [facility] Estimated GFR (MDRD) Amer 118 mL/min >60 [facility] Comment on above: GFR Calc Estimated GFR (MDRD) Non-Af Amer 97 mL/min >60 [facility] Comment on above: Non- GFR Calc Troponin I High Sensitivity 52 pg/mL 3.0-54.0 [facility] Comment on above: Please Note: [place] Units and Gender Specific Reference Ranges. For more information see Policy Stat Procedure [place] High Sensitivity Troponin (TNIH) and attachments. Platelets bldOrdered By: Dr. Hernandez on 09-21-2022 Platelets (Bld) [#/Vol] 235 10*3/uL 150-450 [facility] Protein Test strip Ql (U)Ord ered By: Dr. Hernandez on 09-21-2022 Protein Ql (U) 30 mg/dl Negative [facility] Serum or plasma calcium janie urement (mass/volume)Ordered By: Dr. Hernandez on 09-21-2022 Calcium [Mass/Vol] 8.8 mg/dL 8.5-10.1 [facility] Serum or plasma creatinine m easurement (mass/volume)Ordered By: Dr. Hernandez on 09-21-2022 Creatinine [Mass/Vol] 0.67 mg/dL 0.55-1.02 [facility] Comment on above: The validity of the calculated GFR & GFRAA in patients over 70 years has not been determined. Clinical correlation is essential. Serum or plasma urea nitroge n measurement (mass/volume)Ordered By: Dr. Hernandez on 09-21-2022 Urea nitrogen [Mass/Vol] 14 mg/dL 7-18 [facility] Squamous epithelial cells de tection in urine sediment by light microscopyOrdered By: Dr. Hernandez on 09-21-2022 Epithelial cells.squamous LM Ql (Urine sed) 10-25 SEEN /hpf 5-10 [facility] Thin prep Papanicolaou smear with manual screeningOrdered By: Dr. Hernandez on 09-21-2022 Thin prep Papanicolaou smear with manual screening 5 5-15 [facility] Urine blood detectionOrdered By: Dr. Hernandez on 09-21-2022 RBC Ql (U) 250 /ul Negative [facility] RBC Ql (U) 5-10 SEEN /hpf 0-5 [facility] Urine clarityOrdered By: Dr. Hernandez on 09-21-2022 Clarity (U) Cloudy Clear [facility] Urine color determinationOrd ered By: Dr. Hernandez on 09-21-2022 Color (U) Yellow Yellow [facility] Urine glucose detectionOrder ed By: Dr. Hernandez on 09-21-2022 Glucose Ql (U) Normal mg/dl Normal [facility] Urine leukocyte esterase det ection by dipstickOrdered By: Dr. Hernandez on 09-21-2022 Leukocyte esterase Test strip Ql (U) 500 /ul Negative [facility] Urine pHOrdered By: Dr. Navin monte on 09-21-2022 pH (U) 5.0 [pH] 5.0 - 8.0 [facility] Urine sediment bacteria coun t by microscopy (number/high power field)Ordered By: Dr. Hernandez on 09-21-2022 Bacteria LM.HPF (Urine sed) [#/Area] 0 /[HPF] None Seen [facility] Urine specific gravity measu rementOrdered By: Dr. Hernandez on 09-21-2022 Specific gravity (U) [Rel density] 1.020 1.002-1.030 [facility] Urobilinogen Auto test strip Ql (U)Ordered By: Dr. Hernandez on 09-21-2022 Urobilinogen Ql (U) Normal mg/dl Normal [facility] UA DIP, URINE (POC)on 2022 BILIRUBIN UA (POCT) Negative Negative [facility] CLARITY UA (POCT) Slightly Cloudy Cl [facility] COLOR UA (POCT) Light yellow [facility] GLUCOSE UA (POCT) Negative Negative mg/dL [facility] HEMOGLOBIN/BLOOD UA (POCT) Large Abnormal Negative [facility] KETONE UA (POCT) Negative Negative mg/dL [facility] LEUKOCYTES UA (POCT) Small Abnormal Negative [facility] NITRITE UA (POCT) Positive Abnormal Negative [facility] PH UA (POCT) 6.0 4.5 - 8.0 [facility] Protein Ql (U) 100 mg/dL Abnormal Negative mg/dL [facility] SPECIFIC GRAVITY UA (POCT) >=1.030 1.005 - 1.030 [facility] UROBILINOGEN UA (POCT) 1.0 E.U./dL Normal E.U./dL [facility] XR Hand - right PA and Later al and Obliqueon 06-15-2022 IMPRESSION: Mild degenerative changes in the right hand as described above. No acute fracture seen. Lathe Sander: KARIN Transcribe Date/Time: Jun 15 2022 3:49P Dictated by : LINN DARDEN MD This examination was interpreted and the report reviewed and electronically signed by: LINN DARDEN MD on Jun 15 2022 4:00PM [facility] DIVISION OF RADIOLOGY * * *Final Report* [...] DIVISION OF RADIOLOGY Provider, [facility] - 06/15/2022 * * *Final Report* * [...] as described above. No acute fracture seen. Lathe Sander: ELDONB Transcribe Date/Time: Jun 15 2022 3:49P Dictated by : LINN DARDEN MD This examination was interpreted and the report reviewed and electronically signed by: LINN DARDEN MD on Jun 15 2022 4:00PM EST [facility] Radiology Study observation (narrative) [facility] XR Hand - right PA and Later al and ObliqueOrdered By: [facility] Provider on 06-15-2022 [facility] GLUCOSE, BLOOD (POC)on 02-16 Glucose [Mass/Vol] 240 mg/dL Abnormal 74 - 99 mg/dL [facility] Absolute lymphocyte counton 02-11-2022 Lymphocytes Auto (Unsp spec) [#/Vol] 3.04 10*3/uL 0.83-4.51 [facility] Work Phone: Basophil percentageon 2021 Basophils/100 WBC (Bld) 0.8 % 0-1 [facility] Work Phone: Chloride [Moles/Vol] 103 mmol/L 98-107 [facility] Work Phone: Eosinophils/100 WBC (Bld) 2.4 % 0-5 [facility] Work Phone: Glucose [Mass/Vol] 261 mg/dL 74-106 [facility] Work Phone: Comment on above: Glucose result great er than or equal to 200 mg/dLsuggests DIABETES MELLITUS per A.D.A. criteria. Neutrophils (Bld) [#/Vol] 3.9 10*3/uL 2.0-7.7 [facility] Work Phone: Neutrophils/100 WBC (Bld) 49.5 % 47-70 [facility] Work Phone: Potassium [Moles/Vol] 4.0 mmol/L 3.5-5.1 [facility] Work Phone: Sodium [Moles/Vol] 135 mmol/L 136-145 [facility] Work Phone: WBC (Bld) [#/Vol] 7.8 10*3/uL 4.4-11.0 [facility] Work Phone: Blood erythrocytes count (nu mber/volume)on 02-11-2022 RBC (Bld) [#/Vol] 4.70 10*6/uL 4.2-5.4 [facility] Work Phone: Blood hemoglobin measurement (mass/volume)on 02-11-2022 Hemoglobin (Bld) [Mass/Vol] 11.3 g/dL 12.0-15.0 [facility] Work Phone: Blood lymphocytes/100 leukoc yteson 02-11-2022 Lymphocytes/100 WBC (Bld) 39.1 % 19-41 [facility] Work Phone: Blood monocytes/100 leukocyt eson 02-11-2022 Monocytes/100 WBC (Bld) 6.0 % 0-10 [facility] Work Phone: Blood platelet mean volumeon 02-11-2022 Platelet mean volume (Bld) [Entitic vol] 10.1 fL 6.2-12.0 [facility] Work Phone: Determination of erythrocyte mean corpuscular volume (MCV)on 02-11-2022 MCV (RBC) [Entitic vol] 80.0 fL 81-99 [facility] Work Phone: Glucose Glucometer (BldC) [M ass/Vol]on 02-11-2022 Glucose [Mass/Vol] 350 mg/dL 74-106 [facility] Work Phone: Comment on above: MANAGEMENT OF PATIEN T CARE PER NURSING PROTOCOL Hematocrit Auto (Bld) [Volum e fraction]on 02-11-2022 Hematocrit (Bld) [Volume fraction] 37.6 % 37-47 [facility] Work Phone: Laboratory - Chemistry and C hemistry - challengeon 02-11-2022 CO2 [Moles/Vol] 27.0 mmol/L 21.0-32.0 [facility] Work Phone: Urea nitrogen/Creatinine [Mass ratio] 20.3 mg/mg 10-20 [facility] Work Phone: Laboratory - Hematology and Cell countson 02-11-2022 Erythrocyte distribution width (RBC) [Entitic vol] 46.0 fL 35.1-43.9 [facility] Work Phone: Erythrocyte distribution width (RBC) [Ratio] 16.3 % 11.6-14.6 [facility] Work Phone: Immature granulocytes/100 WBC (Bld) 2.200 % 0.0-0.9 [facility] Work Phone: Comment on above: IG% - Immature Granu locytes (promyelocytes, myelocytes and metamyelocytes) > 1% indicates that a LEFT SHIFT is Present. MCH (RBC) [Entitic mass] 24.0 pg 27.0-32.0 [facility] Work Phone: Nucleated RBC/100 WBC (Bld) [Ratio] 0 % 0-5 [facility] Work Phone: MCHC Auto (RBC) [Mass/Vol]on 02-11-2022 MCHC (RBC) [Mass/Vol] 30.1 g/dL 32-36 [facility] Work Phone: No Panel Informationon 02-11 Estimated Creatinine Clearance Calc 88.83 ml/min [facility] Work Phone: Estimated GFR (MDRD) Amer 150 mL/min >60 [facility] Work Phone: Comment on above: GFR Calc Estimated GFR (MDRD) Non-Af Amer 124 mL/min >60 [facility] Work Phone: Comment on above: Non- GFR Calc Platelets bldon 02-11-2022 Platelets (Bld) [#/Vol] 227 10*3/uL 150-450 [facility] Work Phone: Serum or plasma calcium janie urement (mass/volume)on 02-11-2022 Calcium [Mass/Vol] 8.6 mg/dL 8.5-10.1 [facility] Work Phone: Serum or plasma creatinine m easurement (mass/volume)on 02-11-2022 Creatinine [Mass/Vol] 0.54 mg/dL 0.55-1.02 [facility] Work Phone: Comment on above: The validity of the calculated GFR & GFRAA in patients over 70 years has not been determined. Clinical correlation is essential. Serum or plasma urea nitroge n measurement (mass/volume)on 02-11-2022 Urea nitrogen [Mass/Vol] 11 mg/dL 7-18 [facility] Work Phone: Thin prep Papanicolaou smear with manual screeningon 02-11-2022 Thin prep Papanicolaou smear with manual screening 5 5-15 [facility] Work Phone: Basophil percentageon 2021 Bilirubin [Mass/Vol] 0.40 mg/dL 0.20-1.00 [facility] Work Phone: Comment on above: For patients on eltr ombopag therapy, use of Dimension [place] TBIL is not recommended. Protein [Mass/Vol] 7.8 g/dL 6.4-8.2 [facility] Work Phone: Laboratory - Chemistry and C hemistry - challengeon 02-10-2022 ALP [Catalytic activity/Vol] 164 U/L 45-117 [facility] Work Phone: ALT [Catalytic activity/Vol] 49 U/L 13-56 [facility] Work Phone: Globulin (S) [Mass/Vol] 5.2 g/dL 2.2-4.2 [facility] Work Phone: Serum or plasma albumin janie urement (mass/volume)on 02-10-2022 Albumin [Mass/Vol] 2.6 g/dL 3.2-5.0 [facility] Work Phone: Serum or plasma albumin/glob ulin mass ratioon 02-10-2022 Albumin/Globulin [Mass ratio] 0.5 {ratio} 0.9-2.4 [facility] Work Phone: Thin prep Papanicolaou smear with manual screeningon 02-10-2022 Thin prep Papanicolaou smear with manual screening 56 U/L 15-37 [facility] Work Phone: Absolute lymphocyte counton 02-09-2022 Lymphocytes Auto (Unsp spec) [#/Vol] 2.68 10*3/uL 0.83-4.51 [facility] Work Phone: Amorphous sediment detection in urine sediment by light microscopyon 02-09-2022 Amorphous sediment LM Ql (Urine sed) 1+ URATE [facility] Work Phone: Assessment of wrist artery p atency prior to arterial punctureon 02-09-2022 Arterial patency Wrist artery --pre arterial puncture Positive [facility] Work Phone: Base excesson 02-09-2022 Base excess Calc (BldV) [Moles/Vol] 2 mmol/L -2-2 [facility] Work Phone: Basophil percentageon 2021 Lactate [Moles/Vol] 1.0 mmol/L 0.4-2.0 [facility] Work Phone: Basophil percentage 26.6 mmol/L 22-26 [facility] Work Phone: Basophils/100 WBC (Bld) 96 % 95-99 [facility] Work Phone: Basophil percentage 50-100 SEEN /hpf 0-5 [facility] Work Phone: Basophils/100 WBC (Bld) 0.7 % 0-1 [facility] Work Phone: Bilirubin [Mass/Vol] 0.50 mg/dL 0.20-1.00 [facility] Work Phone: Comment on above: For patients on eltr ombopag therapy, use of Dimension [place] TBIL is not recommended. Chloride [Moles/Vol] 91 mmol/L 98-107 [facility] Work Phone: [phone] Eosinophils/100 WBC (Bld) 1.7 % 0-5 [facility] Work Phone: Glucose [Mass/Vol] 629 mg/dL 74-106 [facility] Work Phone: Comment on above: Glucose result great er than or equal to 200 mg/dLsuggests DIABETES MELLITUS per A.D.A. criteria. Lactate [Moles/Vol] 2.3 mmol/L 0.4-2.0 [facility] Work Phone: Comment on above: Critical Result(s) C alled at: 19:11:23 02/09/2022 by: JOSEF BARCENAS. TO AUNG BARAHONA OPERATING ROOM SURGICAL TECHNICIAN Results read back by same. Neutrophils (Bld) [#/Vol] 5.5 10*3/uL 2.0-7.7 [facility] Work Phone: Neutrophils/100 WBC (Bld) 61.2 % 47-70 [facility] Work Phone: Potassium [Moles/Vol] 5.0 mmol/L 3.5-5.1 [facility] Work Phone: Comment on above: Moderate Hemolysis, Result may be falsely increased. Protein [Mass/Vol] 8.8 g/dL 6.4-8.2 [facility] Work Phone: Sodium [Moles/Vol] 125 mmol/L 136-145 [facility] Work Phone: Comment on above: Critical Result(s) C alled at: 19:13:42 02/09/2022 by: JOSEF BARCENAS TO EDNA AVALOS OPERATING ROOM SURGICAL TECHNICIAN. Results read back by same. WBC (Bld) [#/Vol] 9.0 10*3/uL 4.4-11.0 [facility] Work Phone: Bilirubin Test strip Ql (U)o n 02-09-2022 Bilirubin Ql (U) Negative Negative [facility] Work Phone: Blood erythrocytes count (nu mber/volume)on 02-09-2022 RBC (Bld) [#/Vol] 4.94 10*6/uL 4.2-5.4 [facility] Work Phone: Blood hemoglobin measurement (mass/volume)on 02-09-2022 Hemoglobin (Bld) [Mass/Vol] 11.8 g/dL 12.0-15.0 [facility] Work Phone: Blood lymphocytes/100 leukoc yteson 02-09-2022 Lymphocytes/100 WBC (Bld) 29.7 % 19-41 [facility] Work Phone: Blood monocytes/100 leukocyt eson 02-09-2022 Monocytes/100 WBC (Bld) 4.9 % 0-10 [facility] Work Phone: Blood platelet mean volumeon 02-09-2022 Platelet mean volume (Bld) [Entitic vol] 10.3 fL 6.2-12.0 [facility] Work Phone: CO2 (BldA) [Partial pressure ]on 02-09-2022 CO2 (Bld) [Partial pressure] 45.2 mm[Hg] 35-45 [facility] Work Phone: Determination of erythrocyte mean corpuscular volume (MCV)on 02-09-2022 MCV (RBC) [Entitic vol] 76.9 fL 81-99 [facility] Work Phone: Glucose Glucometer (BldC) [M ass/Vol]on 02-09-2022 Glucose [Mass/Vol] mg/dL 74-106 [facility] Work Phone: Comment on above: Dr Winnie GARSIA OF PATIENT CARE PER NURSING PROTOCOL Hematocrit Auto (Bld) [Volum e fraction]on 02-09-2022 Hematocrit (Bld) [Volume fraction] 38.0 % 37-47 [facility] Work Phone: Ketones Test strip Ql (U)on 02-09-2022 Ketones Ql (U) Negative Negative [facility] Work Phone: Laboratory - Chemistry and C hemistry - challengeon 02-09-2022 ALP [Catalytic activity/Vol] 210 U/L 45-117 [facility] Work Phone: ALT [Catalytic activity/Vol] 56 U/L 13-56 [facility] Work Phone: CO2 [Moles/Vol] 27.0 mmol/L 21.0-32.0 [facility] Work Phone: Free T4 [Mass/Vol] 0.50 ng/dL 0.76-1.46 [facility] Work Phone: Globulin (S) [Mass/Vol] 5.9 g/dL 2.2-4.2 [facility] Work Phone: HCG ( test) Ql (U) Negative [facility] Work Phone: Comment on above: Very dilute urine sp ecimens, as indicated by a low specificgravity, may not contain metals sales representative levels of hCG. If is still suspected, a first morning urinespecimen should be collected 48 hours later and tested. Lipase [Catalytic activity/Vol] 96 U/L 73-393 [facility] Work Phone: Urea nitrogen/Creatinine [Mass ratio] 13.3 mg/mg 10-20 [facility] Work Phone: Laboratory - Hematology and Cell countson 02-09-2022 Erythrocyte distribution width (RBC) [Entitic vol] 44.8 fL 35.1-43.9 [facility] Work Phone: Erythrocyte distribution width (RBC) [Ratio] 16.3 % 11.6-14.6 [facility] Work Phone: Immature granulocytes/100 WBC (Bld) 1.800 % 0.0-0.9 [facility] Work Phone: Comment on above: IG% - Immature Granu locytes (promyelocytes, myelocytes and metamyelocytes) > 1% indicates that a LEFT SHIFT is Present. MCH (RBC) [Entitic mass] 23.9 pg 27.0-32.0 [facility] Work Phone: Nucleated RBC/100 WBC (Bld) [Ratio] 0 % 0-5 [facility] Work Phone: MCHC Auto (RBC) [Mass/Vol]on 02-09-2022 MCHC (RBC) [Mass/Vol] 31.1 g/dL 32-36 [facility] Work Phone: Mucus LM Ql (Urine sed)on Mucus Ql (Urine sed) 0 SEEN /hpf [facility] Work Phone: Nitrite Test strip Ql (U)on 02-09-2022 Nitrite Ql (U) Positive Negative [facility] Work Phone: No Panel Informationon 02-09 Blood Gas Sample Site L Radial [facility] Work Phone: Blood Gas Specimen Type ART [facility] Work Phone: Blood Gas Total CO2 28 mmol/L [facility] Work Phone: Oxygen Delivery Device Room Air [facility] Work Phone: Estimated Creatinine Clearance Calc 45.68 ml/min [facility] Work Phone: Estimated GFR (MDRD) Amer 70 mL/min >60 [facility] Work Phone: Comment on above: GFR Calc Estimated GFR (MDRD) Non-Af Amer 58 mL/min >60 [facility] Work Phone: Comment on above: Non- GFR Calc Free Triiodothyronine (T3) pg/dL 1.7 pg/mL 2.18-3.98 [facility] Work Phone: Thyroid Stimulating Hormone (TSH) 53.20 uIU/mL 0.358-3.74 [facility] Work Phone: Oxygen (BldA) [Partial press ure]on 02-09-2022 Oxygen (Bld) [Partial pressure] 81 mmHG 75-100 [facility] Work Phone: Platelets bldon 02-09-2022 Platelets (Bld) [#/Vol] 271 10*3/uL 150-450 [facility] Work Phone: Protein Test strip Ql (U)on 02-09-2022 Protein Ql (U) 15 mg/dl Negative [facility] Work Phone: Serum or plasma acetone janie urement (mass/volume)on 02-09-2022 Acetone [Mass/Vol] Negative NEG [facility] Work Phone: Serum or plasma albumin janie urement (mass/volume)on 02-09-2022 Albumin [Mass/Vol] 2.9 g/dL 3.2-5.0 [facility] Work Phone: Serum or plasma albumin/glob ulin mass ratioon 02-09-2022 Albumin/Globulin [Mass ratio] 0.5 {ratio} 0.9-2.4 [facility] Work Phone: Serum or plasma calcium janie urement (mass/volume)on 02-09-2022 Calcium [Mass/Vol] 9.7 mg/dL 8.5-10.1 [facility] Work Phone: Serum or plasma creatinine m easurement (mass/volume)on 02-09-2022 Creatinine [Mass/Vol] 1.05 mg/dL 0.55-1.02 [facility] Work Phone: Comment on above: The validity of the calculated GFR & GFRAA in patients over 70 years has not been determined. Clinical correlation is essential. Serum or plasma urea nitroge n measurement (mass/volume)on 02-09-2022 Urea nitrogen [Mass/Vol] 14 mg/dL 7-18 [facility] Work Phone: Squamous epithelial cells de tection in urine sediment by light microscopyon 02-09-2022 Epithelial cells.squamous LM Ql (Urine sed) 0-5 SEEN /hpf 5-10 [facility] Work Phone: Thin prep Papanicolaou smear with manual screeningon 02-09-2022 Thin prep Papanicolaou smear with manual screening 70 U/L 15-37 [facility] Work Phone: Comment on above: Moderate Hemolysis, Result may be falsely increased. Thin prep Papanicolaou smear with manual screening 7 5-15 [facility] Work Phone: Thin prep Papanicolaou smear with manual screening 301 mOsm/KG 275-295 [facility] Work Phone: Urine blood detectionon 01-20 RBC Ql (U) 150 /ul Negative [facility] Work Phone: RBC Ql (U) 25-50 SEEN /hpf 0-5 [facility] Work Phone: Urine clarityon 02-09-2022 Clarity (U) Cloudy Clear [facility] Work Phone: Urine color determinationon 02-09-2022 Color (U) Yellow Yellow [facility] Work Phone: Urine glucose detectionon Glucose Ql (U) 1000 mg/dl Normal [facility] Work Phone: Urine leukocyte esterase det ection by dipstickon 02-09-2022 Leukocyte esterase Test strip Ql (U) 500 /ul Negative [facility] Work Phone: Urine pHon 02-09-2022 pH (U) 6.0 [pH] 5.0 - 8.0 [facility] Work Phone: Urine sediment bacteria coun t by microscopy (number/high power field)on 02-09-2022 Bacteria LM.HPF (Urine sed) [#/Area] 2 /[HPF] None Seen [facility] Work Phone: Urine specific gravity measu rementon 02-09-2022 Specific gravity (U) [Rel density] 1.010 1.002-1.030 [facility] Work Phone: Urobilinogen Auto test strip Ql (U)on 02-09-2022 Urobilinogen Ql (U) Normal mg/dl Normal [facility] Work Phone: pH measurementon 02-09-2022 pH (Unsp spec) 7.38 [pH] 7.35-7.45 [facility] Work Phone: HGB A1Con 11-10-2021 Average glucose Estimated from glycated hemoglobin (Bld) [Mass/Vol] 260 mg/dL [facility] HbA1c (Bld) [Mass fraction] 10.7 % High 4.3 - 5.6 % [facility] Basic metabolic 2000 panelon 11-09-2021 Anion gap [Moles/Vol] 9 mmol/L 9 - 18 mmol/L [facility] Calcium [Mass/Vol] 9.5 mg/dL 8.5 - 10. 2 mg/dL [facility] Chloride [Moles/Vol] 98 mmol/L 97 - 10 5 mmol/L [facility] CO2 [Moles/Vol] 27 mmol/L 22 - 30 mmol/L [facility] Creatinine [Mass/Vol] 0.49 mg/dL Low 0.58 - 0.96 mg/dL [facility] Estimated Glomerular Filtration Rate 112 mL/min/1.73m >=60 mL/min/1.73m [facility] Glucose [Mass/Vol] 244 mg/dL High 74 - 99 mg/dL [facility] Potassium [Moles/Vol] 4.6 mmol/L 3.7 - 5.1 mmol/L [facility] Sodium [Moles/Vol] 134 mmol/L Low 136 - 144 mmol/L [facility] Urea nitrogen [Mass/Vol] 14 mg/dL 7 - 21 mg/dL [facility] XR HAND GENERAL 3V PA/LAT/OB L LEFTon 10-16-2021 [facility] XR Hand - left PA and Latera l and Obliqueon 10-16-2021 IMPRESSION: Findings as described above. Lathe Sander: KARIN Transcribe Date/Time: Oct 16 2021 11:48A Dictated by : LINN DARDEN MD This examination was interpreted and the report reviewed and electronically signed by: LINN DADREN MD on Oct 16 2021 11:53AM [facility] DIVISION OF RADIOLOGY * * *Final Report* [...] soft tissue swelling. DIVISION OF RADIOLOGY Provider, Wang Kolb [facility] - 10/16/2021 * * *Final Report* * [...] swelling. IMPRESSION IMPRESSION: Findings as described above. Lathe Sander: PSCB Transcribe Date/Time: Oct 16 2021 11:48A Dictated by : LINN DARDEN MD This examination was interpreted and the report reviewed and electronically signed by: LINN DARDEN MD on Oct 16 2021 11:53AM EST [facility] Radiology Study observation (narrative) [facility] XR Hand - left PA and Latera l and ObliqueOrdered By: [facility] Provider on 10-16-2021 [facility] Culture, urine Bacteria identified Cx Nom (U) Escherichia coli [facility] Work Phone: Laboratory - Microbiology an d Antimicrobial susceptibility Bacteria identified Cx Nom (Bld) No growth in 5 days. [facility] Work Phone: No Panel Information [facility] Vital Signs Date Time Vital Sign Value Performing Clinician Facility 02-04-2025 11:01-0400 Body height 154.94 cm [employer] Work Phone: [facility] 02-04-2025 11:01-0400 Body mass index (BMI) [Ratio] 46.3 kg/m2 [employer] Work Phone: [facility] 02-04-2025 11:01-0400 Body weight 111.35 kg [employer] Work Phone: [facility] 02-04-2025 11:01-0400 Diastolic blood pressure 76 mm[Hg] [employer] Work Phone: [facility] 02-04-2025 11:01-0400 Heart rate 100 /min [employer] Work Phone: [facility] 02-04-2025 11:01-0400 Inhaled oxygen flow rate 3 L/min [employer] Work Phone: [facility] 02-04-2025 11:01-0400 SaO2% (BldA) [Mass fraction] 96 % [employer] Work Phone: [facility] 02-04-2025 11:01-0400 Systolic blood pressure 121 mm[Hg] [employer] MA[employer] Work Phone: [facility] 02-02-2025 08:04-0400 Body mass index (BMI) [Ratio] 46.5 kg/m2 [employer] Work Phone: [facility] 02-02-2025 08:04-0400 Body temperature 97.3 [degF] [employer] MA[employer] Work Phone: [facility] 02-02-2025 08:04-0400 Body weight 111.58 kg [employer] MANAGER Work Phone: [facility] 02-02-2025 08:04-0400 Diastolic blood pressure 76 mm[Hg] [employer] MANAGER Work Phone: [facility] 02-02-2025 08:04-0400 Heart rate 96 /min [employer] MANA[employer] Work Phone: [facility] 02-02-2025 08:04-0400 Inhaled oxygen flow rate 3 L/min [employer] MA[employer] Work Phone: [facility] 02-02-2025 08:04-0400 Respiratory rate 18 /min [employer] MA[employer] Work Phone: [facility] 02-02-2025 08:04-0400 SaO2% (BldA) [Mass fraction] 94 % [employer] MA[employer] Work Phone: [facility] 02-02-2025 08:04-0400 Systolic blood pressure 120 mm[Hg] [employer] MA[employer] Work Phone: [facility] 01-13-2025 14:44-0400 Inhaled oxygen flow rate 2 L/min [employer] Work Phone: [facility] 01-13-2025 14:41-0400 Body temperature 98 [degF] [employer] MANAGER Work Phone: [facility] 01-13-2025 14:41-0400 Diastolic blood pressure 58 mm[Hg] [employer] MANAGER Work Phone: [facility] 01-13-2025 14:41-0400 Heart rate 82 /min [employer] MA[employer] Work Phone: [facility] 01-13-2025 14:41-0400 Respiratory rate 18 /min [employer] MANA[employer] Work Phone: [facility] 01-13-2025 14:41-0400 SaO2% (BldA) [Mass fraction] 99 % [employer] MANA[employer] Work Phone: [facility] 01-13-2025 14:41-0400 Systolic blood pressure 103 mm[Hg] [employer] MANAGER Work Phone: [facility] 01-13-2025 05:58-0400 Body mass index (BMI) [Ratio] 46.3 kg/m2 [employer] MANAGER Work Phone: [facility] 01-13-2025 05:58-0400 Body weight 111.2 kg [employer] MANAGER Work Phone: [facility] 01-11-2025 14:15-0400 Body height 154.94 cm [employer]ERO [employer] MANAGER Work Phone: [facility] 01-11-2025 00:43-0400 Body temperature 98.8 [degF] [employer] MANAGER Work Phone: [facility] 01-11-2025 00:43-0400 Diastolic blood pressure 64 mm[Hg] [employer] MANAGER Work Phone: [facility] 01-11-2025 00:43-0400 Heart rate 96 /min [employer] MANAGER Work Phone: [facility] 01-11-2025 00:43-0400 Respiratory rate 22 /min [employer] MANA[employer] Work Phone: [facility] 01-11-2025 00:43-0400 SaO2% (BldA) [Mass fraction] 100 % [employer] MA[employer] Work Phone: [facility] 01-11-2025 00:43-0400 Systolic blood pressure 128 mm[Hg] [employer] MANAGER Work Phone: [facility] 01-10-2025 22:13-0400 Body height 154.94 cm [employer]ERO [employer] MANAGER Work Phone: [facility] 01-10-2025 22:13-0400 Body mass index (BMI) [Ratio] 46.1 kg/m2 [employer] MANAGER Work Phone: [facility] 01-10-2025 22:13-0400 Body weight 110.85 kg [employer]ERO [employer] MANAGER Work Phone: [facility] 01-10-2025 22:13-0400 Inhaled oxygen flow rate 3 L/min [employer] MA[employer] Work Phone: [facility] 12-30-2024 10:43-0400 Body temperature 98.2 [degF] [employer] MANAGER Work Phone: [facility] 12-30-2024 10:43-0400 Diastolic blood pressure 70 mm[Hg] [employer] MANAGER Work Phone: [facility] 12-30-2024 10:43-0400 Heart rate 92 /min [employer] MANAGER Work Phone: [facility] 12-30-2024 10:43-0400 Respiratory rate 16 /min [employer] MANAGER Work Phone: [facility] 12-30-2024 10:43-0400 SaO2% (BldA) [Mass fraction] 99 % [employer] MANAGER Work Phone: [facility] 12-30-2024 10:43-0400 Systolic blood pressure 128 mm[Hg] [employer] MANAGER Work Phone: [facility] 11-03-2024 23:17-0400 Body temperature 97.3 [degF] [employer] MANAGER Work Phone: [facility] 11-03-2024 23:17-0400 Diastolic blood pressure 85 mm[Hg] [employer] MANAGER Work Phone: [facility] 11-03-2024 23:17-0400 Heart rate 98 /min [employer] MA[employer]GER Work Phone: [facility] 11-03-2024 23:17-0400 Respiratory rate 18 /min [employer] MANA[employer] Work Phone: [facility] 11-03-2024 23:17-0400 SaO2% (BldA) [Mass fraction] 97 % [employer] MANAGER Work Phone: [facility] 11-03-2024 23:17-0400 Systolic blood pressure 106 mm[Hg] [employer] MANAGER Work Phone: [facility] 11-03-2024 21:01-0400 Body height 154.94 cm [employer]ERO [employer] MANAGER Work Phone: [facility] 11-03-2024 21:01-0400 Body mass index (BMI) [Ratio] 46.3 kg/m2 [employer] MA[employer] Work Phone: [facility] 11-03-2024 21:01-0400 Body weight 111.2 kg [employer] MANAGER Work Phone: [facility] 10-30-2024 09:22-0400 Body mass index (BMI) [Ratio] 44.6 kg/m2 [employer] MANAGER Work Phone: [facility] 10-30-2024 09:22-0400 Body temperature 95.9 [degF] [employer] MANAGER Work Phone: [facility] 10-30-2024 09:22-0400 Body weight 107.04 kg [employer]ERO [employer] MANAGER Work Phone: [facility] 10-30-2024 09:22-0400 Diastolic blood pressure 81 mm[Hg] [employer] MANAGER Work Phone: [facility] 10-30-2024 09:22-0400 Heart rate 89 /min [employer] MANAGER Work Phone: [facility] 10-30-2024 09:22-0400 Inhaled oxygen flow rate 2 L/min [employer] MANAGER Work Phone: [facility] 10-30-2024 09:22-0400 Respiratory rate 20 /min [employer] MANAGER Work Phone: [facility] 10-30-2024 09:22-0400 SaO2% (BldA) [Mass fraction] 99 % [employer] MANAGER Work Phone: [facility] 10-30-2024 09:22-0400 Systolic blood pressure 147 mm[Hg] [employer] MANAGER Work Phone: [facility] 10-06-2024 12:53-0400 Body height 154.94 cm [employer] Work Phone: [facility] 10-06-2024 12:53-0400 Body weight 108.86 kg [employer] Work Phone: [facility] 10-06-2024 12:53-0400 Heart rate 95 /min [employer] MANAGER Work Phone: [facility] 10-06-2024 12:53-0400 SaO2% (BldA) [Mass fraction] 98 % [employer] MA[employer]GER Work Phone: [facility] 09-30-2024 02:03-0400 Body temperature 98 [degF] [employer] MANAGER Work Phone: [facility] 09-30-2024 02:03-0400 Diastolic blood pressure 66 mm[Hg] [employer] MANAGER Work Phone: [facility] 09-30-2024 02:03-0400 Heart rate 81 /min [employer] MANAGER Work Phone: [facility] 09-30-2024 02:03-0400 Respiratory rate 18 /min [employer] MANAGER Work Phone: [facility] 09-30-2024 02:03-0400 SaO2% (BldA) [Mass fraction] 97 % [employer] MANAGER Work Phone: [facility] 09-30-2024 02:03-0400 Systolic blood pressure 121 mm[Hg] [employer] MANAGER Work Phone: [facility] 09-30-2024 00:34-0400 Body height 154.94 cm [employer] MANAGER Work Phone: [facility] 09-30-2024 00:34-0400 Body mass index (BMI) [Ratio] 43.2 kg/m2 [employer] MA[employer]GER Work Phone: [facility] 09-30-2024 00:34-0400 Body weight 103.7 kg [employer] MANAGER Work Phone: [facility] 09-24-2024 13:08-0500 Body mass index (BMI) [Ratio] 45.3 kg/m2 [employer] MANAGER Work Phone: [facility] 09-24-2024 13:08-0500 Body weight 108.86 kg [employer] MANAGER Work Phone: [facility] 09-24-2024 13:08-0500 Diastolic blood pressure 84 mm[Hg] [employer] MANAGER Work Phone: [facility] 09-24-2024 13:08-0500 Heart rate 88 /min [employer] MANAGER Work Phone: [facility] 09-24-2024 13:08-0500 Inhaled oxygen flow rate 2 L/min [employer] MANAGER Work Phone: [facility] 09-24-2024 13:08-0500 SaO2% (BldA) [Mass fraction] 95 % [employer] MANAGER Work Phone: [facility] 09-24-2024 13:08-0500 Systolic blood pressure 135 mm[Hg] [employer] MANAGER Work Phone: [facility] 09-04-2024 08:46-0500 Body mass index (BMI) [Ratio] 42.9 kg/m2 [employer] MANAGER Work Phone: [facility] 09-04-2024 08:46-0500 Body temperature 97.4 [degF] [employer] MANAGER Work Phone: [facility] 09-04-2024 08:46-0500 Body weight 102.96 kg [employer] MANAGER Work Phone: [facility] 09-04-2024 08:46-0500 Diastolic blood pressure 83 mm[Hg] [employer] MANAGER Work Phone: [facility] 09-04-2024 08:46-0500 Heart rate 102 /min [employer] MANAGER Work Phone: [facility] 09-04-2024 08:46-0500 Inhaled oxygen flow rate 2 L/min [employer] MANAGER Work Phone: [facility] 09-04-2024 08:46-0500 Respiratory rate 20 /min [employer] MANAGER Work Phone: [facility] 09-04-2024 08:46-0500 SaO2% (BldA) [Mass fraction] 99 % [employer] MANAGER Work Phone: [facility] 09-04-2024 08:46-0500 Systolic blood pressure 126 mm[Hg] [employer] MANAGER Work Phone: [facility] 09-03-2024 14:30-0500 Diastolic blood pressure 72 mm[Hg] Blas Merrill MD Work Phone: [facility] 09-03-2024 14:30-0500 Heart rate 92 /min Blas Merrill MD Work Phone: [facility] 09-03-2024 14:30-0500 Respiratory rate 24 /min Blas Merrill MD Work Phone: [facility] 09-03-2024 14:30-0500 SaO2% (BldA) [Mass fraction] 97 % Blas Merrill MD Work Phone: [facility] 09-03-2024 14:30-0500 Systolic blood pressure 126 mm[Hg] Blas Merrill MD Work Phone: [facility] 09-03-2024 13:57-0500 Body temperature 98.01 [degF] Blas Merrill MD Work Phone: [facility] 09-03-2024 12:08-0500 Body height 154.9 cm Blas Merrill MD Work Phone: [facility] 08-27-2024 14:00-0500 Body height 154.9 cm Scott Berrios MD, MPH Work Phone: [facility] 08-27-2024 14:00-0500 Body mass index (BMI) [Ratio] 45.65 kg/m2 Scott Berrios MD, MPH Work Phone: [facility] 08-27-2024 14:00-0500 Body temperature 97.3 [degF] Scott Berrios MD, MPH Work Phone: 0(621)408-551583 [place] [address] 08-27-2024 14:00-0500 Body weight 109.54 kg Scott Berrios MD, MPH Work Phone: 8(495)140-996483 [place] [address] 08-27-2024 14:00-0500 Diastolic blood pressure 67 mm[Hg] Scott Berrios MD, MPH Work Phone: 8(472)782-447283 [place] [address] 08-27-2024 14:00-0500 Heart rate 106 /min Scott Berrios MD, MPH Work Phone: 8(731)552-909783 [place] [address] 08-27-2024 14:00-0500 Respiratory rate 18 /min Scott Berrios MD, MPH Work Phone: 5(769)962-895083 [place] [address] 08-27-2024 14:00-0500 SaO2% (BldA) [Mass fraction] 96 % Scott Berrios MD, MPH Work Phone: 3(083)368-563683 [place] [address] 08-27-2024 14:00-0500 Systolic blood pressure 142 mm[Hg] Scott Berrios MD, MPH Work Phone: 9(520)971-129283 [place] [address] 07-30-2024 13:34-0500 Body height 155.2 cm Scott Berrios MD, MPH Work Phone: 5(124)229-437083 [place] [address] 07-30-2024 13:34-0500 Body mass index (BMI) [Ratio] 44.16 kg/m2 Scott Berrios MD, MPH Work Phone: 1(509)980-874383 [place] [address] 07-30-2024 13:34-0500 Body temperature 97.5 [degF] Scott Berrios MD, MPH Work Phone: 2(562)641-066883 [place] [address] 07-30-2024 13:34-0500 Body weight 106.37 kg Scott Berrios MD, MPH Work Phone: 1(283)882-513283 [place] [address] 07-30-2024 13:34-0500 Diastolic blood pressure 56 mm[Hg] Scott Berrios MD, MPH Work Phone: [facility] 07-30-2024 13:34-0500 Heart rate 94 /min Scott Berrios MD, MPH Work Phone: 3(153)255-270748 [address] 07-30-2024 13:34-0500 Respiratory rate 16 /min Scott Berrios MD, MPH Work Phone: 1(990)771-748883 [place] [address] 07-30-2024 13:34-0500 SaO2% (BldA) [Mass fraction] 93 % Scott Berrios MD, MPH Work Phone: 2(764)720-644283 [place] [address] 07-30-2024 13:34-0500 Systolic blood pressure 112 mm[Hg] Scott Berrios MD, MPH Work Phone: 9(934)316-379648 [address] 07-30-2024 11:54-0500 Body height 155.2 cm Blas Rod MD Work Phone: [facility] Comment on above: with shoes 07-30-2024 11:54-0500 Body mass index (BMI) [Ratio] 44.16 kg/m2 Blas Rod MD Work Phone: [facility] 07-30-2024 11:54-0500 Body temperature 97.5 [degF] Blas Rod MD Work Phone: [facility] 07-30-2024 11:54-0500 Body weight 106.37 kg Blas Rod MD Work Phone: [facility] Comment on above: with shoes 07-30-2024 11:54-0500 Diastolic blood pressure 56 mm[Hg] Blas Rod MD Work Phone: [facility] 07-30-2024 11:54-0500 Heart rate 94 /min Blas Rod MD Work Phone: [facility] 07-30-2024 11:54-0500 Respiratory rate 16 /min Blas Rod MD Work Phone: [facility] 07-30-2024 11:54-0500 SaO2% (BldA) [Mass fraction] 93 % Blas Rod MD Work Phone: [facility] 07-30-2024 11:54-0500 Systolic blood pressure 112 mm[Hg] Blas Rod MD Work Phone: [facility] 07-29-2024 15:07-0500 Body temperature 97 [degF] [employer] MANAGER Work Phone: [facility] 07-29-2024 15:07-0500 Diastolic blood pressure 81 mm[Hg] [employer] MANAGER Work Phone: [facility] 07-29-2024 15:07-0500 Heart rate 69 /min [employer] MANAGER Work Phone: [facility] 07-29-2024 15:07-0500 Respiratory rate 16 /min [employer] MANAGER Work Phone: [facility] 07-29-2024 15:07-0500 SaO2% (BldA) [Mass fraction] 95 % [employer] MANAGER Work Phone: [facility] 07-29-2024 15:07-0500 Systolic blood pressure 92 mm[Hg] [employer] MANAGER Work Phone: [facility] 07-29-2024 15:00-0500 Inhaled oxygen flow rate 2 L/min [employer] MANAGER Work Phone: [facility] 07-29-2024 12:43-0500 Body mass index (BMI) [Ratio] 44.1 kg/m2 [employer] MANAGER Work Phone: [facility] 07-29-2024 12:43-0500 Body weight 106 kg [employer] MANAGER Work Phone: [facility] 07-28-2024 10:20-0500 Body mass index (BMI) [Ratio] 44.7 kg/m2 [employer] MANAGER Work Phone: [facility] 07-28-2024 10:20-0500 Body weight 107.5 kg [employer] MANAGER Work Phone: [facility] 07-28-2024 10:20-0500 Diastolic blood pressure 73 mm[Hg] [employer] MANAGER Work Phone: [facility] 07-28-2024 10:20-0500 Heart rate 86 /min [employer] MANAGER Work Phone: [facility] 07-28-2024 10:20-0500 SaO2% (BldA) [Mass fraction] 93 % [employer] MANAGER Work Phone: [facility] 07-28-2024 10:20-0500 Systolic blood pressure 109 mm[Hg] [employer] MANAGER Work Phone: [facility] 06-23-2024 15:45-0500 Diastolic blood pressure 52 mm[Hg] Blas Merrill MD Work Phone: [facility] 06-23-2024 15:45-0500 Heart rate 85 /min Blas Merrill MD Work Phone: [facility] 06-23-2024 15:45-0500 Respiratory rate 22 /min Blas Merrill MD Work Phone: [facility] 06-23-2024 15:45-0500 SaO2% (BldA) [Mass fraction] 97 % Blas Merrill MD Work Phone: [facility] 06-23-2024 15:45-0500 Systolic blood pressure 111 mm[Hg] Blas Merrill MD Work Phone: [facility] 06-23-2024 15:00-0500 Body temperature 97.81 [degF] Blas Merrill MD Work Phone: [facility] 06-23-2024 12:23-0500 Body height 152.4 cm Blas Merrill MD Work Phone: [facility] 06-08-2024 12:59-0500 Body mass index (BMI) [Ratio] 44 kg/m2 [employer] MANAGER Work Phone: [facility] 06-08-2024 12:59-0500 Body weight 105.68 kg [employer] MANAGER Work Phone: [facility] 06-08-2024 12:59-0500 Diastolic blood pressure 67 mm[Hg] [employer] MANAGER Work Phone: [facility] 06-08-2024 12:59-0500 Heart rate 87 /min [employer] MANAGER Work Phone: [facility] 06-08-2024 12:59-0500 Inhaled oxygen flow rate 2 L/min [employer] MANAGER Work Phone: [facility] 06-08-2024 12:59-0500 SaO2% (BldA) [Mass fraction] 96 % [employer] MANAGER Work Phone: [facility] 06-08-2024 12:59-0500 Systolic blood pressure 95 mm[Hg] [employer] MANAGER Work Phone: [facility] 05-07-2024 07:45-0400 Body height 152.3 cm Blas Rod MD Work Phone: [facility] Comment on above: w/o shoes 05-07-2024 07:45-0400 Body mass index (BMI) [Ratio] 46.35 kg/m2 Blas Rod MD Work Phone: [facility] 05-07-2024 07:45-0400 Body temperature 97.81 [degF] Blas Rod MD Work Phone: [facility] 05-07-2024 07:45-0400 Body weight 107.5 kg Blas Rod MD Work Phone: [facility] Comment on above: w/o shoes 05-07-2024 07:45-0400 Diastolic blood pressure 67 mm[Hg] Blas Rod MD Work Phone: [facility] 05-07-2024 07:45-0400 Heart rate 87 /min Blas Rod MD Work Phone: [facility] 05-07-2024 07:45-0400 Respiratory rate 18 /min Blas Rod MD Work Phone: [facility] 05-07-2024 07:45-0400 SaO2% (BldA) [Mass fraction] 95 % Blas Rod MD Work Phone: [facility] Comment on above: 2 liters of oxygen 05-07-2024 07:45-0400 Systolic blood pressure 128 mm[Hg] Blas Rod MD Work Phone: [facility] 03-30-2024 02:53-0400 Blood Pressure Location ALDA ABBASI MD [facility] 03-30-2024 02:53-0400 Blood Pressure Method ALDA ABBASI MD [facility] 03-30-2024 02:53-0400 Body height 155 cm ALDA ABBASI MD [facility] 03-30-2024 02:53-0400 Body temperature 97.16 [degF] ALDA ABBASI MD [facility] 03-30-2024 02:53-0400 Body weight 111 kg ALDA ABBASI MD [facility] 03-30-2024 02:53-0400 Diastolic Blood Pressure Non-Invasive 64 mm[Hg] ALDA ABBASI MD [facility] 03-30-2024 02:53-0400 Heart rate 104 /min ALDA ABBASI MD [facility] 03-30-2024 02:53-0400 Respiratory rate 16 /min ALDA ABBASI MD [facility] 03-30-2024 02:53-0400 Systolic Blood Pressure Non-Invasive 123 mm[Hg] ADLA ABBASI MD [facility] 02-25-2024 12:06-[address] URSULA DONATO MD [facility] 02-25-2024 12:06-[address] URSULA DONATO MD [facility] 02-25-2024 12:06-0400 Diastolic Blood Pressure Non-Invasive 74 mm[Hg] DR URSULA DONATO MD [facility] 02-25-2024 12:06-0400 Heart rate 87 /min DR URSULA DONATO MD [facility] 02-25-2024 12:06-0400 Reason For Taking VItal Signs DR URSULA DONATO MD [facility] 02-25-2024 12:06-0400 Respiratory rate 18 /min DR URSULA DONATO MD [facility] 02-25-2024 12:06-0400 Systolic Blood Pressure Non-Invasive 110 mm[Hg] DR URSULA DONATO MD [facility] 02-25-2024 09:12-[address] URSULA DONATO MD [facility] 02-25-2024 09:12-[address] URSULA DONATO MD [facility] 02-25-2024 09:12-0400 Body temperature 97.88 [degF] DR URSULA DONATO MD [facility] 02-25-2024 09:12-0400 Body weight 108.[address] URSULA DONATO MD [facility] 02-25-2024 09:12-0400 Diastolic Blood Pressure Non-Invasive 66 mm[Hg] DR URSULA DONATO MD [facility] 02-25-2024 09:12-0400 Heart rate 92 /min DR USRULA DONATO MD [facility] 02-25-2024 09:12-0400 Respiratory rate 18 /min DR URSULA DONATO MD [facility] 02-25-2024 09:12-0400 Systolic Blood Pressure Non-Invasive 106 mm[Hg] DR URSULA DONATO MD [facility] 05-17-2023 11:27-0400 Body height 154.9 cm Pacc 1 Work Phone: [facility] 05-17-2023 11:27-0400 Body temperature 97.5 [degF] Pacc 1 Work Phone: [facility] 05-17-2023 11:27-0400 Body weight 120.2 kg Pacc 1 Work Phone: [facility] 05-17-2023 11:27-0400 Diastolic blood pressure 62 mm[Hg] Pacc 1 Work Phone: [facility] 05-17-2023 11:27-0400 Heart rate 94 /min Pacc 1 Work Phone: [facility] 05-17-2023 11:27-0400 SaO2% (BldA) [Mass fraction] 98 % Pac 1 Work Phone: [facility] 05-17-2023 11:27-0400 Systolic blood pressure 94 mm[Hg] Pac 1 Work Phone: [facility] 05-07-2023 13:14-0400 Body height 154.9 cm Yessy [place] PA-C Work Phone: [facility] 05-07-2023 13:14-0400 Body temperature 97 [degF] Yessy [place] PA-C Work Phone: [facility] 05-07-2023 13:14-0400 Body weight 120.93 kg Yessy [place] PA-C Work Phone: [facility] 05-07-2023 13:14-0400 Diastolic blood pressure 78 mm[Hg] Yessy Christopher PA-C Work Phone: [facility] 05-07-2023 13:14-0400 Heart rate 101 /min Yessy [place] PA-C Work Phone: [facility] 05-07-2023 13:14-0400 SaO2% (BldA) [Mass fraction] 95 % Yessy Christopher PA-C Work Phone: [facility] 05-07-2023 13:14-0400 Systolic blood pressure 124 mm[Hg] Yessy Christopher PA-C Work Phone: [facility] 05-03-2023 10:04-0400 Body weight 122.33 kg Papa Douglass MD Work Phone: [facility] 05-03-2023 10:04-0400 Diastolic blood pressure 74 mm[Hg] Papa Douglass MD Work Phone: [facility] 05-03-2023 10:04-0400 Heart rate 90 /min Papa oDuglass MD Work Phone: [facility] 05-03-2023 10:04-0400 Respiratory rate 16 /min Papa Douglass MD Work Phone: [facility] 05-03-2023 10:04-0400 Systolic blood pressure 126 mm[Hg] Papa Douglass MD Work Phone: [facility] 04-20-2023 09:44-0400 SaO2% (BldA) [Mass fraction] 91 % Dr. Papa Douglass Work Phone: [facility] 04-20-2023 09:00-0400 Body temperature 97 [degF] Dr. Papa Douglass Work Phone: 5(377)405-297049 [place] [address] 04-20-2023 09:00-0400 Diastolic blood pressure 66 mm[Hg] Dr. Papa Douglass Work Phone: 2(410)356-304093 [address] 04-20-2023 09:00-0400 Heart rate 82 /min Dr. Papa Douglass Work Phone: 2(378)173-173542 [place] [address] 04-20-2023 09:00-0400 Respiratory rate 14 /min Dr. Papa Douglass Work Phone: 9(887)012-394849 [place] [address] 04-20-2023 09:00-0400 Systolic blood pressure 110 mm[Hg] Dr. Papa Douglass Work Phone: 6(178)179-060393 [address] 04-20-2023 07:24-0400 Inhaled oxygen flow rate 1 L/min Dr. Papa Douglass Work Phone: 9(807)619-782793 [address] 04-20-2023 03:34-0400 Body mass index (BMI) [Ratio] 49 kg/m2 Dr. Papa Douglass Work Phone: 0(416)744-844449 [place] [address] 04-20-2023 03:34-0400 Body weight 117.[address] Papa Douglass Work Phone: 2(544)090-565042 [place] [address] 04-19-2023 13:49-0400 Body height 154.[address] Papa Douglass Work Phone: 1(184)695-415793 [address] 04-17-2023 09:18-0400 Body mass index (BMI) [Ratio] 49.4 kg/m2 Dr. Papa Douglass Work Phone: [facility] 04-17-2023 09:18-0400 Body temperature 98.4 [degF] Dr. Papa Douglass Work Phone: [facility] 04-17-2023 09:18-0400 Body weight 118.[address] Papa Douglass Work Phone: [facility] 04-17-2023 09:18-0400 Diastolic blood pressure 72 mm[Hg] Dr. Papa Douglass Work Phone: [facility] 04-17-2023 09:18-0400 Heart rate 86 /min Dr. Papa Douglass Work Phone: [facility] 04-17-2023 09:18-0400 Respiratory rate 18 /min Dr. Papa Douglass Work Phone: [facility] 04-17-2023 09:18-0400 SaO2% (BldA) [Mass fraction] 95 % Dr. Papa Douglass Work Phone: [facility] 04-17-2023 09:18-0400 Systolic blood pressure 112 mm[Hg] Dr. Papa Douglass Work Phone: [facility] 03-05-2023 08:40-0400 Diastolic blood pressure 73 mm[Hg] Mari Jernigan DO Work Phone: [facility] 03-05-2023 08:40-0400 Heart rate 86 /min Mari Jernigan DO Work Phone: [facility] 03-05-2023 08:40-0400 SaO2% (BldA) [Mass fraction] 95 % Mari Jernigan DO Work Phone: [facility] 03-05-2023 08:40-0400 Systolic blood pressure 106 mm[Hg] Mari Jernigan DO Work Phone: [facility] 02-18-2023 11:26-0400 Body mass index (BMI) [Ratio] 49 kg/m2 Dr. Papa Douglass Work Phone: [facility] 02-18-2023 11:26-0400 Body temperature 98.1 [degF] Dr. Papa Douglass Work Phone: [facility] 02-18-2023 11:26-0400 Body weight 117.[address] Papa Douglass Work Phone: [facility] 02-18-2023 11:26-0400 Diastolic blood pressure 62 mm[Hg] Dr. Papa Douglass Work Phone: [facility] 02-18-2023 11:26-0400 Heart rate 68 /min Dr. Papa Douglass Work Phone: [facility] 02-18-2023 11:26-0400 Respiratory rate 18 /min Dr. Papa Douglass Work Phone: [facility] 02-18-2023 11:26-0400 SaO2% (BldA) [Mass fraction] 96 % Dr. Papa Douglass Work Phone: [facility] 02-18-2023 11:26-0400 Systolic blood pressure 90 mm[Hg] Dr. Papa Douglass Work Phone: [facility] 01-20-2023 23:17-0400 Diastolic blood pressure 69 mm[Hg] [facility] 01-20-2023 23:17-0400 Heart rate 72 /min [facility] 01-20-2023 23:17-0400 Respiratory rate 18 /min [facility] 01-20-2023 23:17-0400 SaO2% (BldA) [Mass fraction] 99 % [facility] 01-20-2023 23:17-0400 Systolic blood pressure 114 mm[Hg] [facility] 01-20-2023 17:42-0400 Body height 154.94 cm [facility] 01-20-2023 17:42-0400 Body mass index (BMI) [Ratio] 49 kg/m2 [facility] 01-20-2023 17:42-0400 Body temperature 96.9 [degF] [facility] 01-20-2023 17:42-0400 Body weight 117.75 kg [facility] 01-19-2023 08:10-0400 Body weight 116.39 kg Papa Douglass MD Work Phone: [facility] 01-19-2023 08:10-0400 Diastolic blood pressure 76 mm[Hg] Papa Douglass MD Work Phone: [facility] 01-19-2023 08:10-0400 Heart rate 86 /min Papa Douglass MD Work Phone: [facility] 01-19-2023 08:10-0400 Respiratory rate 16 /min Papa Douglass MD Work Phone: [facility] 01-19-2023 08:10-0400 SaO2% (BldA) [Mass fraction] 96 % Papa Douglass MD Work Phone: [facility] 01-19-2023 08:10-0400 Systolic blood pressure 118 mm[Hg] Papa Douglass MD Work Phone: [facility] 01-07-2023 14:04-0400 Diastolic blood pressure 55 mm[Hg] [facility] 01-07-2023 14:04-0400 Systolic blood pressure 114 mm[Hg] [facility] 01-07-2023 12:51-0400 Body height 154.94 cm [facility] 01-07-2023 12:51-0400 Body mass index (BMI) [Ratio] 48.5 kg/m2 [facility] 01-07-2023 12:51-0400 Body temperature 97.9 [degF] [facility] 01-07-2023 12:51-0400 Body weight 116.57 kg [facility] 01-07-2023 12:51-0400 Heart rate 99 /min [facility] 01-07-2023 12:51-0400 Respiratory rate 18 /min [facility] 01-07-2023 12:51-0400 SaO2% (BldA) [Mass fraction] 94 % [facility] 10-25-2022 11:13-0400 Body temperature 97.7 [degF] [facility] 10-25-2022 11:13-0400 Diastolic blood pressure 60 mm[Hg] [facility] 10-25-2022 11:13-0400 Heart rate 75 /min [facility] 10-25-2022 11:13-0400 Respiratory rate 18 /min [facility] 10-25-2022 11:13-0400 SaO2% (BldA) [Mass fraction] 92 % [facility] 10-25-2022 11:13-0400 Systolic blood pressure 106 mm[Hg] [facility] 10-25-2022 08:54-0400 Body height 154.94 cm [facility] 10-25-2022 08:54-0400 Body mass index (BMI) [Ratio] 47.4 kg/m2 [facility] 10-25-2022 08:54-0400 Body weight 113.85 kg [facility] 10-10-2022 05:05-0400 Body height 154.94 cm [facility] 10-10-2022 05:05-0400 Body mass index (BMI) [Ratio] 47.4 kg/m2 [facility] 10-10-2022 05:05-0400 Body temperature 97.2 [degF] [facility] 10-10-2022 05:05-0400 Body weight 113.85 kg [facility] 10-10-2022 05:05-0400 Diastolic blood pressure 98 mm[Hg] [facility] 10-10-2022 05:05-0400 Heart rate 94 /min [facility] 10-10-2022 05:05-0400 Respiratory rate 20 /min [facility] 10-10-2022 05:05-0400 SaO2% (BldA) [Mass fraction] 97 % [facility] 10-10-2022 05:05-0400 Systolic blood pressure 137 mm[Hg] [facility] 10-01-2022 09:04-0400 Body temperature 98.4 [degF] Coco Waters APRN.DESIZING MACHINE OFFBEARER Work Phone: [facility] 10-01-2022 09:04-0400 Body weight 112.49 kg Coco Tannhof MUTTON PUNCHER.DESIZING MACHINE OFFBEARER Work Phone: [facility] 10-01-2022 09:04-0400 Diastolic blood pressure 64 mm[Hg] Coco Tannhof MUTTON PUNCHER.DESIZING MACHINE OFFBEARER Work Phone: [facility] 10-01-2022 09:04-0400 Heart rate 86 /min Coco Tannhof MUTTON PUNCHER.DESIZING MACHINE OFFBEARER Work Phone: [facility] 10-01-2022 09:04-0400 Respiratory rate 16 /min Coco Tannhof MUTTON PUNCHER.DESIZING MACHINE OFFBEARER Work Phone: [facility] 10-01-2022 09:04-0400 SaO2% (BldA) [Mass fraction] 98 % Coco Tannhof MUTTON PUNCHER.DESIZING MACHINE OFFBEARER Work Phone: [facility] 10-01-2022 09:04-0400 Systolic blood pressure 118 mm[Hg] Coco Tannhof MUTTON PUNCHER.DESIZING MACHINE OFFBEARER Work Phone: [facility] 09-27-2022 09:46-0500 Body weight 110.22 kg Coco Tannhof MUTTON PUNCHER.DESIZING MACHINE OFFBEARER Work Phone: [facility] 09-27-2022 09:46-0500 Diastolic blood pressure 72 mm[Hg] Coco Tannhof MUTTON PUNCHER.DESIZING MACHINE OFFBEARER Work Phone: [facility] 09-27-2022 09:46-0500 Heart rate 78 /min Coco Tannhof MUTTON PUNCHER.DESIZING MACHINE OFFBEARER Work Phone: [facility] 09-27-2022 09:46-0500 Respiratory rate 20 /min Coco Tannhof MUTTON PUNCHER.DESIZING MACHINE OFFBEARER Work Phone: [facility] 09-27-2022 09:46-0500 SaO2% (BldA) [Mass fraction] 98 % Coco Tannhof MUTTON PUNCHER.DESIZING MACHINE OFFBEARER Work Phone: [facility] 09-27-2022 09:46-0500 Systolic blood pressure 120 mm[Hg] Coco Tannhof MUTTON PUNCHER.DESIZING MACHINE OFFBEARER Work Phone: [facility] 09-21-2022 18:07-0500 Diastolic blood pressure 78 mm[Hg] [facility] 09-21-2022 18:07-0500 Heart rate 84 /min [facility] 09-21-2022 18:07-0500 Respiratory rate 19 /min [facility] 09-21-2022 18:07-0500 SaO2% (BldA) [Mass fraction] 95 % [facility] 09-21-2022 18:07-0500 Systolic blood pressure 131 mm[Hg] [facility] 09-21-2022 14:10-0500 Body height 154.94 cm [facility] 09-21-2022 14:10-0500 Body mass index (BMI) [Ratio] 47.3 kg/m2 [facility] 09-21-2022 14:10-0500 Body temperature 97.4 [degF] [facility] 09-21-2022 14:10-0500 Body weight 113.67 kg [facility] 09-21-2022 13:37-0500 Body temperature 97.3 [degF] Sabine Borrego APRN.DESIZING MACHINE OFFBEARER Work Phone: [facility] 09-21-2022 13:37-0500 Body weight 114.13 kg Sabine Borrego APRN.DESIZING MACHINE OFFBEARER Work Phone: [facility] 09-21-2022 13:37-0500 Diastolic blood pressure 72 mm[Hg] Sabine Borrego APRN.DESIZING MACHINE OFFBEARER Work Phone: [facility] 09-21-2022 13:37-0500 Heart rate 73 /min Sabine Borrego APRN.DESIZING MACHINE OFFBEARER Work Phone: [facility] 09-21-2022 13:37-0500 Respiratory rate 18 /min Sabine Borrego APRN.DESIZING MACHINE OFFBEARER Work Phone: [facility] 09-21-2022 13:37-0500 SaO2% (BldA) [Mass fraction] 98 % Sabine Borrego APRN.DESIZING MACHINE OFFBEARER Work Phone: [facility] 09-21-2022 13:37-0500 Systolic blood pressure 118 mm[Hg] Sabine Borrego APRN.DESIZING MACHINE OFFBEARER Work Phone: [facility] 08-31-2022 15:06-0500 Body temperature 97 [degF] [facility] 08-31-2022 15:06-0500 Diastolic blood pressure 67 mm[Hg] [facility] 08-31-2022 15:06-0500 Heart rate 75 /min [facility] 08-31-2022 15:06-0500 Respiratory rate 16 /min [facility] 08-31-2022 15:06-0500 SaO2% (BldA) [Mass fraction] 94 % [facility] 08-31-2022 15:06-0500 Systolic blood pressure 112 mm[Hg] [facility] 08-31-2022 13:59-0500 Body height 154.94 cm [facility] 08-31-2022 13:59-0500 Body mass index (BMI) [Ratio] 27.3 kg/m2 [facility] 08-31-2022 13:59-0500 Body weight 65.77 kg [facility] 08-30-2022 16:22-0500 Diastolic blood pressure 58 mm[Hg] Dionne Turner MD Work Phone: [facility] 08-30-2022 16:22-0500 Heart rate 75 /min Dionne Turner MD Work Phone: [facility] 08-30-2022 16:22-0500 SaO2% (BldA) [Mass fraction] 95 % Dionne Turner MD Work Phone: [facility] 08-30-2022 16:22-0500 Systolic blood pressure 110 mm[Hg] Dionne Turner MD Work Phone: [facility] 08-30-2022 14:03-0500 Body weight 110.68 kg Dionne Turner MD Work Phone: [facility] 08-12-2022 13:18-0500 Body height 154.94 cm [facility] 08-12-2022 13:18-0500 Body mass index (BMI) [Ratio] 46.3 kg/m2 [facility] 08-12-2022 13:18-0500 Body temperature 96.5 [degF] [facility] 08-12-2022 13:18-0500 Body weight 111.13 kg [facility] 08-12-2022 13:18-0500 Diastolic blood pressure 70 mm[Hg] [facility] 08-12-2022 13:18-0500 Heart rate 92 /min [facility] 08-12-2022 13:18-0500 Respiratory rate 18 /min [facility] 08-12-2022 13:18-0500 SaO2% (BldA) [Mass fraction] 98 % [facility] 08-12-2022 13:18-0500 Systolic blood pressure 129 mm[Hg] [facility] 08-07-2022 06:59-0500 Body weight 110.95 kg Mela Murphy APRN.DESIZING MACHINE OFFBEARER Work Phone: [facility] 08-07-2022 06:59-0500 Diastolic blood pressure 68 mm[Hg] Mela Murphy APRN.DESIZING MACHINE OFFBEARER Work Phone: [facility] 08-07-2022 06:59-0500 Systolic blood pressure 120 mm[Hg] Mela Murphy MUTTON PUNCHER.DESIZING MACHINE OFFBEARER Work Phone: [facility] 07-18-2022 10:37-0500 Body height 154.9 cm Marissa Podlogar MUTTON PUNCHER.DESIZING MACHINE OFFBEARER Work Phone: [facility] 07-18-2022 10:37-0500 Body temperature 96.69 [degF] Marissa Podlogar MUTTON PUNCHER.DESIZING MACHINE OFFBEARER Work Phone: [facility] 07-18-2022 10:37-0500 Body weight 112.95 kg Marissa Podlogar MUTTON PUNCHER.DESIZING MACHINE OFFBEARER Work Phone: [facility] 07-18-2022 10:37-0500 Diastolic blood pressure 60 mm[Hg] Marissa Podlogar MUTTON PUNCHER.DESIZING MACHINE OFFBEARER Work Phone: [facility] 07-18-2022 10:37-0500 Heart rate 80 /min Marissa Podlogar MUTTON PUNCHER.DESIZING MACHINE OFFBEARER Work Phone: [facility] 07-18-2022 10:37-0500 Respiratory rate 16 /min Marissa Podlogar MUTTON PUNCHER.DESIZING MACHINE OFFBEARER Work Phone: [facility] 07-18-2022 10:37-0500 SaO2% (BldA) [Mass fraction] 97 % Marissa Podlogar MUTTON PUNCHER.DESIZING MACHINE OFFBEARER Work Phone: [facility] 07-18-2022 10:37-0500 Systolic blood pressure 136 mm[Hg] Marissa Podlogar MUTTON PUNCHER.DESIZING MACHINE OFFBEARER Work Phone: [facility] 06-28-2022 09:51-0500 Body weight 108.86 kg Coco Tannhof MUTTON PUNCHER.DESIZING MACHINE OFFBEARER Work Phone: [facility] 06-28-2022 09:51-0500 Diastolic blood pressure 66 mm[Hg] Coco Tannhof MUTTON PUNCHER.DESIZING MACHINE OFFBEARER Work Phone: [facility] 06-28-2022 09:51-0500 Heart rate 88 /min Coco Tannhof MUTTON PUNCHER.DESIZING MACHINE OFFBEARER Work Phone: [facility] 06-28-2022 09:51-0500 Respiratory rate 16 /min Coco Tannhof MUTTON PUNCHER.DESIZING MACHINE OFFBEARER Work Phone: [facility] 06-28-2022 09:51-0500 SaO2% (BldA) [Mass fraction] 98 % Coco Tannhof MUTTON PUNCHER.DESIZING MACHINE OFFBEARER Work Phone: [facility] 06-28-2022 09:51-0500 Systolic blood pressure 112 mm[Hg] Coco Tannhof MUTTON PUNCHER.DESIZING MACHINE OFFBEARER Work Phone: [facility] 06-26-2022 09:39-0500 Body temperature 97.81 [degF] Génesis Athy PA-C Work Phone: [facility] 06-26-2022 09:39-0500 Body weight 106.59 kg Génesis Athy PA-C Work Phone: [facility] 06-26-2022 09:39-0500 Diastolic blood pressure 62 mm[Hg] Génesis Athy PA-C Work Phone: [facility] 06-26-2022 09:39-0500 Heart rate 104 /min Génesis Zhang PA-C Work Phone: [facility] 06-26-2022 09:39-0500 Respiratory rate 18 /min Génesis Zhang PA-C Work Phone: [facility] 06-26-2022 09:39-0500 SaO2% (BldA) [Mass fraction] 95 % Génesis Zhang PA-C Work Phone: [facility] 06-26-2022 09:39-0500 Systolic blood pressure 122 mm[Hg] Génesis Zhang PA-C Work Phone: [facility] 06-21-2022 08:10-0500 Body weight 108.41 kg Coco Bensonf MUTTON PUNCHER.DESIZING MACHINE OFFBEARER Work Phone: [facility] 06-21-2022 08:10-0500 Diastolic blood pressure 74 mm[Hg] Coco Gonzalezhof MUTTON PUNCHER.DESIZING MACHINE OFFBEARER Work Phone: [facility] 06-21-2022 08:10-0500 Heart rate 83 /min Coco Gonzalezhof MUTTON PUNCHER.DESIZING MACHINE OFFBEARER Work Phone: [facility] 06-21-2022 08:10-0500 Respiratory rate 16 /min Coco Gonzalezhof MUTTON PUNCHER.DESIZING MACHINE OFFBEARER Work Phone: [facility] 06-21-2022 08:10-0500 SaO2% (BldA) [Mass fraction] 99 % Coco Gonzalezhof MUTTON PUNCHER.DESIZING MACHINE OFFBEARER Work Phone: [facility] 06-21-2022 08:10-0500 Systolic blood pressure 112 mm[Hg] Coco Tannhof MUTTON PUNCHER.DESIZING MACHINE OFFBEARER Work Phone: [facility] 06-17-2022 13:04-0500 Heart rate 102 /min [facility] 06-17-2022 13:04-0500 SaO2% (BldA) [Mass fraction] 94 % [facility] 06-17-2022 12:33-0500 Body height 154.94 cm [facility] Work Phone: 06-17-2022 12:33-0500 Body mass index (BMI) [Ratio] 45.7 kg/m2 [facility] 06-17-2022 12:33-0500 Body temperature 96.8 [degF] [facility] 06-17-2022 12:33-0500 Body weight 109.76 kg [facility] 06-17-2022 12:33-0500 Diastolic blood pressure 75 mm[Hg] [facility] 06-17-2022 12:33-0500 Respiratory rate 15 /min [facility] 06-17-2022 12:33-0500 Systolic blood pressure 145 mm[Hg] [facility] 06-08-2022 21:53-0500 Respiratory rate 18 /min Dr. Papa Douglass Work Phone: [facility] 06-08-2022 21:16-0500 Body height 154.[address] Papa Douglass Work Phone: [facility] Work Phone: 06-08-2022 21:16-0500 Body mass index (BMI) [Ratio] 45.3 kg/m2 Dr. Papa Douglass Work Phone: [facility] 06-08-2022 21:16-0500 Body temperature 97.2 [degF] Dr. Papa Douglass Work Phone: [facility] 06-08-2022 21:16-0500 Body weight 108.[address] Papa Douglass Work Phone: [facility] 06-08-2022 21:16-0500 Diastolic blood pressure 64 mm[Hg] Dr. Papa Douglass Work Phone: [facility] 06-08-2022 21:16-0500 Heart rate 74 /min Dr. Papa Douglass Work Phone: [facility] 06-08-2022 21:16-0500 SaO2% (BldA) [Mass fraction] 96 % Dr. Papa Douglass Work Phone: [facility] 06-08-2022 21:16-0500 Systolic blood pressure 137 mm[Hg] Dr. Papa Douglass Work Phone: [facility] 03-19-2022 11:34-0400 Body weight 107.05 kg Cocokobi Gonzalezhof MUTTON PUNCHER.DESIZING MACHINE OFFBEARER Work Phone: [facility] 03-19-2022 11:34-0400 Diastolic blood pressure 62 mm[Hg] Coco Tannhof MUTTON PUNCHER.DESIZING MACHINE OFFBEARER Work Phone: [facility] 03-19-2022 11:34-0400 Heart rate 100 /min Coco Tannhof MUTTON PUNCHER.DESIZING MACHINE OFFBEARER Work Phone: [facility] 03-19-2022 11:34-0400 Respiratory rate 16 /min Cocokobi Gonzalezhof MUTTON PUNCHER.DESIZING MACHINE OFFBEARER Work Phone: [facility] 03-19-2022 11:34-0400 SaO2% (BldA) [Mass fraction] 98 % Cocokobi Gonzalezhof MUTTON PUNCHER.DESIZING MACHINE OFFBEARER Work Phone: [facility] 03-19-2022 11:34-0400 Systolic blood pressure 108 mm[Hg] Coco Tannhof MUTTON PUNCHER.DESIZING MACHINE OFFBEARER Work Phone: [facility] 03-14-2022 13:03-0400 Body weight 106.14 kg Gretchen Cioce MUTTON PUNCHER.DESIZING MACHINE OFFBEARER Work Phone: [facility] 02-16-2022 12:24-0400 Body temperature 96.49 [degF] Bia Jacinto MUTTON PUNCHER.DESIZING MACHINE OFFBEARER Work Phone: [facility] 02-16-2022 12:24-0400 Body weight 108.41 kg Bia Jacinto MUTTON PUNCHER.DESIZING MACHINE OFFBEARER Work Phone: [facility] 02-16-2022 12:24-0400 Diastolic blood pressure 72 mm[Hg] Bia Jacinto MUTTON PUNCHER.DESIZING MACHINE OFFBEARER Work Phone: [facility] 02-16-2022 12:24-0400 Heart rate 91 /min Bia Jacinto MUTTON PUNCHER.DESIZING MACHINE OFFBEARER Work Phone: [facility] 02-16-2022 12:24-0400 Respiratory rate 20 /min Bia Jacinto MUTTON PUNCHER.DESIZING MACHINE OFFBEARER Work Phone: [facility] 02-16-2022 12:24-0400 SaO2% (BldA) [Mass fraction] 96 % Bia Jacinto MUTTON PUNCHER.DESIZING MACHINE OFFBEARER Work Phone: [facility] 02-16-2022 12:24-0400 Systolic blood pressure 110 mm[Hg] Bia Jacinto MUTTON PUNCHER.DESIZING MACHINE OFFBEARER Work Phone: [facility] 02-11-2022 09:25-0400 SaO2% (BldA) [Mass fraction] 96 % Dr. Papa Douglass Work Phone: [facility] Work Phone: 02-11-2022 09:20-0400 Body temperature 97.8 [degF] Dr. Papa Douglass Work Phone: [facility] Work Phone: 02-11-2022 09:20-0400 Diastolic blood pressure 60 mm[Hg] Dr. Papa Douglass Work Phone: [facility] Work Phone: 02-11-2022 09:20-0400 Heart rate 80 /min Dr. Papa Douglass Work Phone: [facility] Work Phone: 02-11-2022 09:20-0400 Respiratory rate 18 /min Dr. Papa Douglass Work Phone: [facility] Work Phone: 02-11-2022 09:20-0400 Systolic blood pressure 113 mm[Hg] Dr. Papa Douglass Work Phone: [facility] Work Phone: 02-10-2022 14:18-0400 Body height 154.[address] Papa Douglass Work Phone: [facility] Work Phone: 02-10-2022 14:18-0400 Body weight 106.[address] Papa Douglass Work Phone: [facility] Work Phone: 02-09-2022 20:44-0400 Body mass index (BMI) [Ratio] 44.4 kg/m2 Dr. Papa Douglass Work Phone: [facility] Work Phone: 02-09-2022 20:27-0400 Diastolic blood pressure 68 mm[Hg] [facility] Work Phone: 02-09-2022 20:27-0400 Systolic blood pressure 117 mm[Hg] [facility] Work Phone: 02-09-2022 19:39-0400 Body temperature 97.9 [degF] [facility] Work Phone: 02-09-2022 19:39-0400 Heart rate 99 /min [facility] Work Phone: 02-09-2022 19:39-0400 Respiratory rate 18 /min [facility] Work Phone: 02-09-2022 19:39-0400 SaO2% (BldA) [Mass fraction] 97 % [facility] Work Phone: 02-09-2022 17:44-0400 Body height 154.94 cm [facility] Work Phone: 02-09-2022 17:44-0400 Body mass index (BMI) [Ratio] 44.1 kg/m2 [facility] Work Phone: 02-09-2022 17:44-0400 Body weight 106 kg [facility] Work Phone: 02-08-2022 14:04-0400 Body weight 105.6 kg Papa Douglass MD Work Phone: [facility] 02-08-2022 14:04-0400 Diastolic blood pressure 72 mm[Hg] Papa Douglass MD Work Phone: [facility] 02-08-2022 14:04-0400 Heart rate 100 /min Papa Douglass MD Work Phone: [facility] 02-08-2022 14:04-0400 Respiratory rate 16 /min Papa Douglass MD Work Phone: [facility] 02-08-2022 14:04-0400 Systolic blood pressure 120 mm[Hg] Papa Douglass MD Work Phone: [facility] 10-16-2021 10:57-0400 Body temperature 97.81 [degF] Sasha Alexandre MUTTON PUNCHER.DESIZING MACHINE OFFBEARER Work Phone: [facility] 10-16-2021 10:57-0400 Body weight 107.41 kg Sasha Alexandre MUTTON PUNCHER.DESIZING MACHINE OFFBEARER Work Phone: [facility] 10-16-2021 10:57-0400 Diastolic blood pressure 70 mm[Hg] Sasha Alexandre MUTTON PUNCHER.DESIZING MACHINE OFFBEARER Work Phone: [facility] 10-16-2021 10:57-0400 Heart rate 102 /min Sasha Alexandre MUTTON PUNCHER.DESIZING MACHINE OFFBEARER Work Phone: [facility] 10-16-2021 10:57-0400 Respiratory rate 20 /min Sasha Alexandre MUTTON PUNCHER.DESIZING MACHINE OFFBEARER Work Phone: [facility] 10-16-2021 10:57-0400 SaO2% (BldA) [Mass fraction] 96 % Sasha Alexandre MUTTON PUNCHER.DESIZING MACHINE OFFBEARER Work Phone: [facility] 10-16-2021 10:57-0400 Systolic blood pressure 108 mm[Hg] Sasha Alexandre MUTTON PUNCHER.DESIZING MACHINE OFFBEARER Work Phone: [facility] Encounters Encounter Date Encounter Type Care Provider Facility Start: 02-04-2025 End: 02-04-2025 ambulatory Jaziel Drake Facility:[facility] Start: 02-04-2025 End: 02-04-2025 Patient encounter procedure Jaziel Drake METEOROLOGY TEACHER-C -Laboratory Work Phone: Start: 02-04-2025 End: 02-04-2025 Patient encounter procedure Jaziel Drake METEOROLOGY TEACHER-C -[facility] Work Phone: Start: 02-04-2025 End: 02-04-2025 ambulatory VERO MAST GROCERY MANAGER Work Phone: -[facility] Start: 02-02-2025 End: 02-02-2025 Patient encounter procedure METEOROLOGY TEACHER Elsa José -[facility] Work Phone: Start: 02-02-2025 End: 02-02-2025 ambulatory VERO MAST GROCERY MANAGER Work Phone: -[facility] Start: 01-27-2025 End: 01-29-2025 Telephone encounter Sridevi Connors RN Division of Medical Oncology Comment on above: Other Start: 01-20-2025 End: 01-24-2025 ambulatory VERO MAST MUTTON PUNCHER-DESIZING MACHINE OFFBEARER Facility:[facility] Start: 01-20-2025 End: 01-24-2025 Outreach Lab VERO MAST MUTTON PUNCHER-DESIZING MACHINE OFFBEARER [facility] Start: 01-20-2025 End: 01-20-2025 ambulatory VERO MAST MUTTON PUNCHER-DESIZING MACHINE OFFBEARER Facility:[facility] Start: 01-20-2025 End: 01-20-2025 Patient encounter procedure VERO MAST MUTTON PUNCHER-DESIZING MACHINE OFFBEARER [facility] Start: 01-13-2025 Non-patient / Non-visit Dr. Velasquez loo DO -[facility] Work Phone: Start: 01-12-2025 Non-patient / Non-visit Dr. Velasquez loo DO -[facility] Work Phone: Start: 01-11-2025 ambulatory Amadou Smalls ty:[facility] Start: 01-11-2025 End: 01-13-2025 Evaluation and management of inpatient Dr. Amadou Arthur DO -Medical Surgical 3 Work Phone: Start: 12-31-2024 ambulatory VERO MAST Facility:[facility] Start: 12-31-2024 End: 12-31-2024 Telemedicine consultation with patient Scott Berrios MD, MPH Work Phone: Division of Medical Oncology Comment on above: Neuroendocrine neopl asm of stomach (Primary Dx); Neuroendocrine cancer; Hepatosplenomegaly; Elevated transaminase level Start: 12-30-2024 End: 12-30-2024 Patient encounter procedure Neal Ruiz [facility] Work Phone: Start: 12-30-2024 End: 12-30-2024 ambulatory VERO MAST GROCERY MANAGER Work Phone: [facility] Work Phone: Start: 12-24-2024 End: 12-24-2024 Clinical Support Encounter Scott Berrios MD, MPH Work Phone: Clinical Lab [facility] Comment on above: Neuroendocrine neopl asm of stomach Start: 12-24-2024 ambulatory SCOTT BERRIOS Facility: [facility] Start: 12-24-2024 End: 12-24-2024 Subsequent hospital visit by physician Scott Berrios MD, MPH Work Phone: [facility] Comment on above: Arrived Start: 12-02-2024 End: 12-06-2024 ambulatory VERO MAST MUTTON PUNCHER-DESIZING MACHINE OFFBEARER Facility:[facility] Start: 12-02-2024 End: 12-06-2024 Outreach Lab VERO MAST MUTTON PUNCHER-DESIZING MACHINE OFFBEARER [facility] Start: 11-17-2024 End: 12-18-2024 ambulatory Papa Douglass MD Work Phone: [facility] Start: 11-16-2024 Encounter for genera l adult medical examination without abnormal findings Elsa José [facility] Start: 11-12-2024 End: 11-12-2024 Patient encounter procedure METEOROLOGY TEACHER Elsa José -Sleep Lab Work Phone: Start: 11-12-2024 End: 11-12-2024 ambulatory Elsa José Facility:[facility] Start: 11-06-2024 End: 11-10-2024 ambulatory VERO MAST MUTTON PUNCHER-DESIZING MACHINE OFFBEARER Facility:[facility] Start: 11-06-2024 End: 11-10-2024 Outreach Lab VERO MAST MUTTON PUNCHER-DESIZING MACHINE OFFBEARER [facility] Start: 11-03-2024 End: 11-03-2024 Emergency department patient visit VERO MAST GROCERY MANAGER Work Phone: -Emergency Department Work Phone: Start: 10-30-2024 End: 10-30-2024 Patient encounter procedure ARVIND José -[facility] Work Phone: Start: 10-30-2024 End: 10-30-2024 ambulatory Elsa José Facility:[facility] Start: 10-23-2024 End: 10-23-2024 ambulatory VERO MAST GROCERY MANAGER Work Phone: [facility] Work Phone: Start: 10-23-2024 End: 10-23-2024 Patient encounter procedure ARVIND José -Sleep Lab Work Phone: Start: 10-23-2024 End: 10-23-2024 ambulatory Elsa José Facility:[facility] Start: 10-14-2024 ambulatory Elsa José Facili ty:[facility] Start: 10-14-2024 Non-patient / Non-visit Dr. Alberto Gil own DO -[facility] Start: 10-06-2024 End: 10-06-2024 ambulatory VERO MAST GROCERY MANAGER Work Phone: [facility] Work Phone: Start: 10-06-2024 End: 10-06-2024 Patient encounter procedure METEOROLOGY TEACHER Elsa José -Pulmonary Services/Neurology Work Phone: Start: 10-05-2024 Non-patient / Non-visit Dr. Alberto Gil own DO -[facility] Start: 10-05-2024 End: 10-06-2024 ambulatory VERO MAST GROCERY MANAGER Work Phone: [facility] Work Phone: Start: 10-05-2024 End: 10-05-2024 Patient encounter procedure ARVIDN José -Pulmonary Services/Neurology Work Phone: Start: 10-05-2024 End: 10-05-2024 ambulatory Elsa José Facility:[facility] Start: 09-30-2024 End: 09-30-2024 Emergency department patient visit VERO MAST GROCERY MANAGER Work Phone: -Emergency Department Work Phone: Start: 09-29-2024 End: 09-30-2024 ambulatory Rosa Cardenas RN NURSE ELECTRICAL ENGINEERING DESIGNER Comment on above: Foot Pain (Midfoot) Start: 09-28-2024 End: 09-28-2024 ambulatory VERO MAST GROCERY MANAGER Work Phone: [facility] Work Phone: Start: 09-28-2024 End: 09-28-2024 Patient encounter procedure ARVIND José -Sleep Lab Work Phone: Start: 09-28-2024 End: 09-28-2024 ambulatory Elsa José Facility:[facility] Start: 09-24-2024 End: 09-24-[address] Scott Berrios MD -Laboratory Work Phone: Start: 09-24-2024 End: 09-24-2024 ambulatory VERO MAST GROCERY MANAGER Work Phone: [facility] Work Phone: Start: 09-24-2024 End: 09-24-2024 ambulatory Scott Berrios Facility:[facility] Start: 09-21-2024 End: 09-23-2024 Telephone encounter Supriya Stone RN Division of Medical Oncology Comment on above: Lab Review Start: 09-15-2024 End: 09-15-2024 ambulatory VERO MAST MUTTON PUNCHER-DESIZING MACHINE OFFBEARER Facility:[facility] Start: 09-15-2024 End: 09-15-2024 Patient encounter procedure VERO MAST MUTTON PUNCHER-DESIZING MACHINE OFFBEARER [facility] Start: 09-07-2024 ambulatory Jaziel Drake Facility :[facility] Start: 09-04-2024 End: 09-04-2024 Patient encounter procedure METEOROLOGY TEACHER Elsa José -[facility] Work Phone: Start: 09-04-2024 End: 09-04-2024 ambulatory Elsa Butler [place]ito Facility:[facility] Start: 09-03-2024 End: 09-03-2024 Subsequent hospital visit by physician Blas Merrill MD Work Phone: [facility] Start: 09-03-2024 ambulatory VERO MAST Facility:[facility] Start: 09-02-2024 End: 09-06-2024 ambulatory VERO MAST MUTTON PUNCHER-DESIZING MACHINE OFFBEARER Facility:[facility] Start: 09-02-2024 End: 09-06-2024 Encounter for general adult medical examination without abnormal findings VERO MAST MUTTON PUNCHER-DESIZING MACHINE OFFBEARER Facility:[facility] Start: 09-02-2024 End: 09-06-2024 Outreach Lab VERO MAST MUTTON PUNCHER-DESIZING MACHINE OFFBEARER [facility] Start: 08-27-2024 ambulatory VERO MAST Facility:[facility] Start: 08-27-2024 End: 08-27-2024 Office outpatient visit 40 minutes Scott Berrios MD, MPH Work Phone: Division of Medical Oncology Comment on above: Microcytic anemia (P rimary Dx) Microcytic anemia (P rimary Dx); Iron deficiency anemia, unspecified iron deficiency anemia type Microcytic anemia (P rimary Dx); Iron deficiency anemia, unspecified iron deficiency anemia type; Neuroendocrine cancer Start: 08-27-2024 ambulatory VERO MAST Facility:[facility] Start: 08-14-2024 ambulatory VERO MAST Facility:[facility] Start: 08-14-2024 ambulatory VERO MAST Facility:[facility] Start: 08-12-2024 ambulatory SCOTT BERRIOS Facility: [facility] Start: 07-31-2024 End: 07-31-2024 Telephone encounter [...] Subsequent hospital visit by physician Karolina Piedra APRN-DESIZING MACHINE OFFBEARER, DNP Work Phone: [facility] Comment on above: Arrived Start: 07-29-2024 Non-patient / Non-visit Brayan Heath nd DO -[facility] Start: 07-29-2024 End: 07-29-2024 Admission to same day surgery center Brayan Cast DO -Endoscopy Work Phone: Start: 07-29-2024 End: 07-29-2024 ambulatory VERO MAST Facility:[facility] Start: 07-28-2024 End: 07-28-[address] Ralph Singh MD -[facility] Work Phone: Start: 07-28-2024 End: 07-28-2024 ambulatory VERO MAST Facility:[facility] Start: 07-24-2024 End: 07-24-[address] Ralph iSngh MD -Ultrasound, [facility] Work Phone: Start: 07-24-2024 End: 07-24-2024 ambulatory VERO MAST Facility:[facility] Start: 07-09-2024 ambulatory BLAS ROD Facility :[facility] Start: 07-02-2024 ambulatory VERO MAST Facility:[facility] Start: 06-23-2024 End: 06-23-2024 Subsequent hospital visit by physician Blas Merrill MD Work Phone: [facility] Start: 06-23-2024 ambulatory VERO MAST Facility:[facility] Start: 06-16-2024 End: 06-16-[address] Ralph Singh MD -Nuclear Medicine, [facility] Work Phone: Start: 06-16-2024 End: 06-16-2024 ambulatory VERO MAST Facility:[facility] Start: 06-08-2024 End: 06-08-2024 Patient encounter procedure Jaziel Drake METEOROLOGY TEACHER-C -[facility] Work Phone: Start: 06-08-2024 End: 06-08-2024 ambulatory Jaziel Drake Facility:[facility] Start: 06-02-2024 End: 06-02-[address] Ralph Singh MD -Laboratory, Specimen Work Phone: Start: 06-02-2024 End: 06-02-2024 ambulatory Ralph Singh Facility:[facility] Start: 05-29-2024 End: 05-29-2024 ambulatory Trena Neff Facility:[facility] Start: 05-29-2024 End: 05-29-2024 ambulatory [facility] Facility:[facility] Start: 05-21-2024 End: 05-25-2024 ambulatory KURT BLUMOVER MUTTON PUNCHER-DESIZING MACHINE OFFBEARER Facility:A Start: 05-21-2024 End: 05-21-2024 ambulatory VERO MAST MUTTON PUNCHER-DESIZING MACHINE OFFBEARER Facility:A Start: 05-21-2024 End: 05-21-2024 [facility] MUTTON PUNCHER-DESIZING MACHINE OFFBEARER [facility] Start: 05-12-2024 End: 05-12-2024 ambulatory Ralph Singh Facility:[facility] Start: 05-11-2024 End: 05-11-2024 ambulatory VERO MAST MUTTON PUNCHER-DESIZING MACHINE OFFBEARER Facility:[facility] Start: 05-11-2024 End: 05-11-2024 Patient encounter procedure VERO MAST MUTTON PUNCHER-DESIZING MACHINE OFFBEARER [facility] Start: 05-09-2024 End: 05-09-2024 ambulatory [facility] Facility:[facility] Start: 05-07-2024 End: 05-07-2024 Office outpatient new 60 minutes Blas Rod MD Work Phone: Division of Surgical Oncology Comment on above: Neuroendocrine tumor (Primary Dx) Start: 05-07-2024 End: 05-07-2024 Clinical Support Encounter Blas Rod MD Work Phone: Clinical Lab [facility] Comment on above: Neuroendocrine tumor Start: 05-07-2024 ambulatory BLAS ROD Facility :[facility] Start: 05-05-2024 End: 05-05-2024 ambulatory VERO MAST MUTTON PUNCHER-DESIZING MACHINE OFFBEARER Facility:[facility] Start: 05-05-2024 End: 05-05-2024 Patient encounter procedure VERO MAST MUTTON PUNCHER-DESIZING MACHINE OFFBEARER [facility] Start: 04-23-2024 End: 04-23-2024 ambulatory VERO MAST MUTTON PUNCHER-DESIZING MACHINE OFFBEARER Facility:A Start: 04-23-2024 End: 04-23-2024 Patient encounter procedure AMADOU CLINTON MD [facility] Start: 04-16-2024 End: 04-16-2024 ambulatory Joseluis Riggins Facility:[facility] Start: 04-16-2024 End: 04-16-2024 ambulatory Abram Becker Facility:[facility] Start: 04-14-2024 End: 04-14-2024 ambulatory [facility] Facility:[facility] Start: 04-13-2024 End: 04-17-2024 ambulatory VERO MAST MUTTON PUNCHER-DESIZING MACHINE OFFBEARER Facility:[facility] Start: 04-13-2024 End: 04-17-2024 Outreach Lab VERO MAST MUTTON PUNCHER-DESIZING MACHINE OFFBEARER [facility] Start: 04-06-2024 ambulatory VERO MAST MUTTON PUNCHER-DESIZING MACHINE OFFBEARER Facility:[facility] Start: 04-03-2024 ambulatory VERO MAST Facility:[facility] Start: 04-03-2024 End: 04-07-2024 Evaluation and management of inpatient Law Trinh Facility:[facility] Start: 03-30-2024 End: 03-30-2024 Emergency department patient visit ALDA ABBASI MD [facility] Start: 03-17-2024 End: 03-21-2024 ambulatory CORTNY [facility] MUTTON PUNCHER-DESIZING MACHINE OFFBEARER Facility:B Start: 03-17-2024 End: 03-21-2024 Out[facility] MUTTON PUNCHER-DESIZING MACHINE OFFBEARER [facility] Start: 03-16-2024 End: 03-16-2024 Patient encounter procedure [facility] MUTTON PUNCHER-DESIZING MACHINE OFFBEARER [facility] Start: 03-16-2024 End: 03-20-2024 ambulatory CORTJADE [facility] MUTTON PUNCHER-DESIZING MACHINE OFFBEARER Facility:B Start: 03-16-2024 End: 03-20-2024 Outreach Lab KURT [facility] MUTTON PUNCHER-DESIZING MACHINE OFFBEARER [facility] Start: 03-12-2024 End: 03-12-2024 ambulatory VERO MAST Facility:[facility] Start: 03-04-2024 ambulatory VERO MAST Facility:[facility] Start: 03-04-2024 End: 03-07-2024 Evaluation and management of inpatient Hamida Saini Facility:[facility] Start: 03-02-2024 End: 03-06-2024 ambulatory VERO MAST MUTTON PUNCHER-DESIZING MACHINE OFFBEARER Facility:B Start: 03-02-2024 End: 03-06-2024 Outreach Lab VERO MAST MUTTON PUNCHER-DESIZING MACHINE OFFBEARER [facility] Start: 02-25-2024 End: 02-25-2024 Emergency department patient visit DR URSULA DONATO MD [facility] Start: 02-24-2024 End: 02-28-2024 ambulatory VERO MAST MUTTON PUNCHER-DESIZING MACHINE OFFBEARER Facility:B Start: 02-24-2024 End: 02-28-2024 Outreach Lab VERO MAST MUTTON PUNCHER-DESIZING MACHINE OFFBEARER [facility] Start: 02-24-2024 End: 02-28-2024 ambulatory VERO MAST MUTTON PUNCHER-DESIZING MACHINE OFFBEARER Facility:B Start: 02-24-2024 End: 02-28-2024 Outreach Lab VERO MAST MUTTON PUNCHER-DESIZING MACHINE OFFBEARER [facility] Start: 01-14-2024 End: 01-18-2024 ambulatory VERO MAST MUTTON PUNCHER-DESIZING MACHINE OFFBEARER Facility:B Start: 01-14-2024 End: 01-18-2024 Outreach Lab VERO MAST MUTTON PUNCHER-DESIZING MACHINE OFFBEARER [facility] Start: 12-18-2023 ambulatory Papa sal MD Work Phone: Internal Medicine [place] [id number] Start: 09-16-2023 End: 09-16-2023 ambulatory VERO MAST MUTTON PUNCHER-DESIZING MACHINE OFFBEARER Facility:B Start: 09-02-2023 End: 09-02-2023 ambulatory VERO MAST MUTTON PUNCHER-DESIZING MACHINE OFFBEARER Facility:B Start: 09-02-2023 End: 09-02-2023 Patient encounter procedure VERO MAST MUTTON PUNCHER-DESIZING MACHINE OFFBEARER [facility] Start: 08-19-2023 End: 08-19-2023 ambulatory VERO MAST MUTTON PUNCHER-DESIZING MACHINE OFFBEARER Facility:B Start: 07-30-2023 End: 07-30-2023 ambulatory JAZIEL DRAKE METEOROLOGY TEACHER-C Facility:B Start: 07-30-2023 End: 07-30-2023 Patient encounter procedure JAZIEL DRAKE METEOROLOGY TEACHER-C [facility] Start: 07-26-2023 End: 07-26-2023 ambulatory VERO ORTEZ MUTTON PUNCHER-DESIZING MACHINE OFFBEARER Facility:B Start: 07-26-2023 End: 07-26-2023 Patient encounter procedure VERO ORTEZ MUTTON PUNCHER-DESIZING MACHINE OFFBEARER [facility] Start: 07-02-2023 End: 07-02-2023 Patient [...] 05-28-2023 ambulatory Papa sal MD Work Phone: [facility] Comment on above: Abdominal Pain Start: 05-17-2023 End: 05-17-2023 Admission to establishment [facility] Work Phone: [facility] Start: 05-17-2023 End: 05-17-2023 ambulatory [facility] 1 Work Phone: Pre Anesthesia Comment on above: Pre-operative examin ation (Primary Dx); Anemia, unspecified type; Type 2 diabetes mellitus without complication, with long-term current use of insulin ([facility]); Colitis; Essential hypertension; Mixed hyperlipidemia; Hypothyroidism, unspecified type; Chronic diastolic congestive heart failure (HCC); Bilateral leg edema; Morbid obesity with BMI of 50.0-59.9, adult ([facility]) Start: 05-17-2023 End: 05-17-2023 [facility] Work Phone: Start: 05-07-2023 End: 05-07-2023 Patient encounter procedure Yessy White PA-C Work Phone: General Surgery Comment on above: History of colonic p olyps (Primary Dx); Colitis; Encounter for screening colonoscopy Start: 05-03-2023 End: 05-03-2023 Patient encounter procedure Papa Douglass MD Work Phone: Family [facility] [place] Comment on above: Hospital discharge f ollow-up (Primary Dx); Need for influenza vaccination; Need for vaccination; Colitis; Type 2 diabetes mellitus without complication, with long-term current use of insulin (HCC); Stage 3 chronic kidney disease, unspecified whether stage 3a or 3b CKD (HCC); Encounter for screening colonoscopy; SOB (shortness of breath); Bilateral leg edema Start: 05-01-2023 Telephone encounter Mela huerta APRN.DESIZING MACHINE OFFBEARER Work Phone: OB/Gynecology Comment on above: Medication Question Start: 04-19-2023 Non-patient / Non-visit Dr. Celestina Douglass Work Phone: [facility] Work Phone: Start: 04-18-2023 Non-patient / Non-visit Dr. Celestina Douglass Work Phone: [facility] Work Phone: Start: 04-18-2023 End: 04-20-2023 Evaluation and management of inpatient Dr. Papa Douglass Work Phone: [facility]-Progressive Care Unit Work Phone: Start: 04-17-[address] Papa Douglass Work Phone: [facility]-Laboratory Work Phone: Start: 04-17-2023 End: 04-17-[address] Papa Douglass Work Phone: [facility] Endocrinology Work Phone: Start: 03-05-2023 End: 03-05-2023 Patient encounter procedure Mari Jernigan DO Work Phone: Vascular Surgery Comment on above: Venous (peripheral) insufficiency (Primary Dx); Secondary lymphedema Start: 03-03-2023 Telephone encounter Mela huerta APRN.DESIZING MACHINE OFFBEARER Work Phone: OB/Gynecology Comment on above: Results Start: 03-01-2023 Telephone encounter Mela huerta APRN.DESIZING MACHINE OFFBEARER Work Phone: OB/Gynecology Comment on above: Results (Urine); Ord ers Start: 02-28-2023 Telephone encounter Mela huerta MUTTON PUNCHER.DESIZING MACHINE OFFBEARER Work Phone: OB/Gynecology Comment on above: UTI Start: 02-26-2023 Telephone encounter Papa pace MD Work Phone: [facility] Comment on above: Results Start: 02-18-2023 End: 02-18-[address] Papa Douglass Work Phone: [facility] Endocrinology Work Phone: Start: 01-20-2023 End: 01-20-2023 [facility]: Start: 01-19-2023 End: 01-19-2023 Patient encounter procedure Papa Douglass MD Work Phone: [facility] Comment on above: Pain in both [...] 01-07-2023 ambulatory Papa sal MD Work Phone: [facility] Comment on above: high blood sugars Start: 01-07-2023 End: 01-07-2023 [facility] Start: 01-03-2023 Telephone encounter Louis Wang Work Phone: Podiatry Comment on above: Results Start: 12-31-2022 Telephone encounter Papa pace MD Work Phone: [facility] Comment on above: Forms (3 sets of for ms re: disability) Start: 11-29-2022 End: 11-29-2022 Patient encounter procedure Melissa Cabrales OD Work Phone: Ophthalmology Comment on above: Dry eye syndrome of bilateral lacrimal glands (Primary Dx); Regular astigmatism of both eyes; Presbyopia; Type 2 diabetes mellitus without retinopathy (HCC) Start: 11-20-2022 Refill Papa sal MD Work Phone: [facility] Comment on above: Refill Request Start: 11-16-2022 Orders Only Louis Murphy curly Work Phone: Podiatry Comment on above: Bilateral foot pain (Primary Dx) Start: 11-12-2022 Telephone encounter Papa pace MD Work Phone: [facility] Comment on above: Consult Start: 11-08-2022 Telephone encounter Coco vázquez MUTTON PUNCHER.DESIZING MACHINE OFFBEARER Work Phone: [facility] Comment on above: Results (Labs ) Start: 11-06-2022 [facility] Comment on above: Appointment (Primary Care reschedule) Start: 10-29-2022 Telephone encounter Ketnoah Randall [facility] Work Phone: [facility] Comment on above: Appointment Start: 10-25-2022 Telephone encounter Jonah Naranjo MD Work Phone: [facility] Comment on above: Patient Update Start: 10-25-2022 End: 10-25-2022 Emergency department patient visit [facility]-Emergency Department Start: 10-23-2022 Refill Coco Waters MUTTON PUNCHER.DESIZING MACHINE OFFBEARER Work Phone: [facility] Comment on above: Refill Request Start: 10-10-2022 End: 10-10-2022 Emergency department patient visit [facility]-Emergency Department Start: 10-08-2022 End: 10-08-2022 [facility] Comment on above: Type 2 diabetes lyssa itus without complication, with long-term current use of insulin (HCC) (Primary Dx) Start: 10-08-2022 End: 10-08-2022 Telemedicine consultation with patient Kiley Randall RPh Work Phone: [facility] Start: 10-04-2022 Telephone encounter Papa pace MD Work Phone: [facility] [place] Comment on above: FMLA Paperwork Start: 10-02-2022 Telephone encounter Feliciano wood APRN.DESIZING MACHINE OFFBEARER Work Phone: [facility] [place] Comment on above: Results Start: 10-01-2022 End: 10-01-2022 Patient encounter procedure Coco Waters APRN.DESIZING MACHINE OFFBEARER Work Phone: [facility] [place] Comment on above: Bronchitis (Primary Dx); Acute cough; Sore throat; Iron deficiency anemia secondary to inadequate dietary iron intake; Type 2 diabetes mellitus without complication, with long-term current use of insulin (HCC) Start: 09-28-2022 Telephone encounter Coco vázquez APRN.DESIZING MACHINE OFFBEARER Work Phone: [facility] Comment on above: iron dose Start: 09-27-2022 End: 09-27-2022 Patient encounter procedure Coco Waters APRN.DESIZING MACHINE OFFBEARER Work Phone: [facility] Comment on above: URI, acute (Primary [...] 09-21-2022 End: 09-21-2022 Emergency department patient visit [facility]-Emergency Department Start: 09-21-2022 End: 09-21-2022 Patient encounter procedure Sabine Elmo MUTTON PUNCHER.DESIZING MACHINE OFFBEARER Work Phone: [facility] Comment on above: SOB (shortness of br eath) (Primary Dx); Bilateral leg edema Start: 09-17-2022 Telephone encounter Coco Perry gurpreet LUCIO.DESIZING MACHINE OFFBEARER Work Phone: [facility] Comment on above: Results (Labs ) Start: 09-04-2022 Telephone encounter Dionne jurado MD Work Phone: Allergy Comment on above: Patient Question Start: 09-03-2022 Telephone encounter Mela huerta APRN.CNP Work Phone: OB/Gynecology Comment on above: Results; Clinical Up date Start: 08-31-2022 Telephone encounter Mela huerta APRN.DESIZING MACHINE OFFBEARER Work Phone: OB/Gynecology Comment on above: Patient Update Start: 08-31-2022 End: 08-31-2022 ambulatory [facility] Work Phone: Start: 08-31-2022 End: 08-31-2022 Patient encounter procedure [facility]-Medical Out Start: 08-30-2022 End: 08-30-2022 Patient encounter procedure Dionne Turner MD Work Phone: Allergy Comment on above: [id number]-fxgo-[id number] adv erse effect of medication, initial encounter (Primary Dx); Allergy to multiple antibiotics; Nonallergic rhinitis Start: 08-20-2022 Refill Papa sal MD Work Phone: [facility] Comment on above: Refill Request Start: 08-14-2022 Telephone encounter Mela huerta APRN.DESIZING MACHINE OFFBEARER Work Phone: OB/Gynecology Comment on above: Results Start: 08-12-2022 End: 08-12-2022 Emergency department patient visit [facility]Emergency [facility] Start: 08-07-2022 End: 08-07-2022 Patient encounter procedure Mela Murphy APRN.DESIZING MACHINE OFFBEARER Work Phone: OB/Gynecology Comment on above: Urinary tract infect ion with hematuria, site unspecified (Primary Dx) Start: 07-18-2022 Telephone encounter Papa pace MD Work Phone: [facility] Comment on above: Referral report Start: 07-18-2022 End: 07-18-2022 Patient encounter procedure Marissa Fenton MUTTON PUNCHER.DESIZING MACHINE OFFBEARER Work Phone: [facility] Comment on above: Bilateral leg edema (Primary Dx) Start: 07-04-2022 Telephone encounter Papa pace MD Work Phone: [address] [place] [address] Comment on above: Patient Question Start: 06-28-2022 End: 06-28-2022 Patient encounter procedure Coco Waters MUTTON PUNCHER.DESIZING MACHINE OFFBEARER Work Phone: [facility] Comment on above: Facial infection (Pr imary Dx); Erysipelas Start: 06-26-2022 End: 06-26-2022 Patient encounter procedure Génesis Zhang PA-C Work Phone: [facility] Comment on above: Viral URI (Primary D x); Facial infection Start: 06-21-2022 End: 06-21-2022 Patient encounter procedure Coco Waters APRN.DESIZING MACHINE OFFBEARER Work Phone: [facility] Comment on above: Type 2 diabetes lyssa itus without complication, with long-term current use of insulin (HCC) (Primary Dx); Hypothyroidism, unspecified type; Anxiety with depression Start: 06-17-2022 End: 06-17-2022 [facility] Start: 06-15-2022 End: 06-15-2022 Subsequent hospital visit by physician Xr [facility] Work Phone: Radiology Comment on above: Hand injuries, right , initial encounter [S69.91XA] Start: 06-08-2022 End: 06-08-2022 Emergency department patient visit Dr. Papa Douglass [facility] Start: 06-06-2022 Telephone encounter Papa pace MD Work Phone: [facility] Comment on above: Patient Question; Me dication Problem Start: 03-27-2022 End: 03-27-2022 Patient encounter procedure Melissa Cabrales OD Work Phone: Ophthalmology Comment on above: Regular astigmatism of both eyes (Primary Dx); Presbyopia; Dry eye syndrome of bilateral lacrimal glands; Punctate keratitis of right eye; Type 2 diabetes mellitus without retinopathy (HCC) Start: 03-19-2022 End: 03-19-2022 Patient encounter procedure Coco Waters MUTTON PUNCHER.DESIZING MACHINE OFFBEARER Work Phone: [facility] Comment on above: Type 2 diabetes lyssa itus without complication, with long-term current use of insulin (HCC) (Primary Dx); Essential hypertension; Hypothyroidism, unspecified type Start: 03-14-2022 End: 03-14-2022 Patient encounter procedure Gretchen Fox MUTTON PUNCHER.DESIZING MACHINE OFFBEARER Work Phone: Endocrinology Comment on above: Uncontrolled [...] Telephone encounter Evangelist Antonio MD Work Phone: [facility] Comment on above: Results (Judie+) Start: 02-16-2022 End: 02-16-2022 Patient encounter procedure Bia Ophelia MUTTON PUNCHER.DESIZING MACHINE OFFBEARER Work Phone: [facility] Comment on above: Pharyngitis, unspeci fied etiology (Primary Dx); Rash, skin; Vaginal itching Start: 02-12-2022 Refill Papa sal MD Work Phone: [facility] Comment on above: Refill Request Start: 02-11-2022 Non-patient / Non-visit Dr. Celestina Douglass Work Phone: [facility] Start: 02-10-2022 Non-patient / Non-visit Dr. Celestina Douglass Work Phone: [facility] Start: 02-09-2022 End: 02-11-2022 Evaluation and management of inpatient [facility]Pro[facility] Start: 02-08-2022 End: 02-08-2022 Patient encounter procedure Papa Douglass MD Work Phone: [facility] Comment on above: Uncontrolled type 2 diabetes mellitus with hyperglycemia (HCC) (Primary Dx); Hypothyroidism, unspecified type; Anxiety with depression; Mixed hyperlipidemia; Essential hypertension; Anemia, unspecified type; KODI (obstructive sleep apnea); GERD without esophagitis Start: 11-13-2021 End: 11-13-2021 Patient encounter procedure Kiley Randall [facility] Work Phone: [facility] Comment on above: Type 2 diabetes lyssa itus without complication, with long-term current use of insulin (HCC) Start: 11-09-2021 End: 11-09-2021 Patient encounter procedure Papa Douglass MD Work Phone: [facility] Comment on above: Uncontrolled type 2 diabetes mellitus with hyperglycemia (HCC) (Primary Dx) Start: 10-16-2021 End: 10-16-2021 Subsequent hospital visit by physician Xr [facility] Work Phone: Radiology Comment on above: Left hand pain [M79. [id number]] Start: 10-16-2021 End: 10-16-2021 Patient encounter procedure Sasha Schroeder APRN.DESIZING MACHINE OFFBEARER Work Phone: [facility] Comment on above: Left hand pain (Prim miriam Dx) Type 2 diabetes lyssa itus without complication, with long-term current use of insulin (HCC) (Primary Dx) Start: 10-09-2021 Refill Louis rawls Work Phone: Podiatry Comment on above: Refill Request Start: 10-09-2021 Telephone encounter Coco vázquez APRN.DESIZING MACHINE OFFBEARER Work Phone: [facility] Comment on above: Results; Orders Procedures Date Procedure Procedure Detail Performing Clinician Start: 01-12-2025 Estimated creatinine clearance VERO GUTIÉRREZNP Work Phone: Start: 01-11-2025 Measurement of occul t blood in stool specimen using immunoassay VERO MAST GROCERY MANAGER Work Phone: Start: 01-11-2025 Serum inorganic phos phate measurement VERO MAST GROCERY MANAGER Work Phone: Start: 01-11-2025 Total iron binding c apacity measurement VERO MAST GROCERY MANAGER Work Phone: Start: 01-10-2025 Estimated creatinine clearance VERO MAST GROCERY MANAGER Work Phone: Start: 01-10-2025 Urnls dip stick/tabl et reagent auto microscopy VERO MAST GROCERY MANAGER Work Phone: Start: 01-10-2025 CT of abdomen and pe lvis without contrast VERO DIANA GROCERY MANAGER Work Phone: Start: 01-10-2025 Urine culture VERO YI Work Phone: Start: 12-24-2024 CBC AND ELECTRONIC DIFF Thomas Montero MUTTON PUNCHER-[facility] Work Phone: Start: 12-24-2024 Complete blood count with white cell differential, automated Thomas Montero MUTTON PUNCHER-[facility] Work Phone: Start: 12-24-2024 End: 12-24-2024 Comprehensive metabolic panel Thomas Montero MUTTON PUNCHER-[facility] Work Phone: Start: 11-03-2024 Urnls dip stick/tabl [...] ct atten uation skull base mid-thigh Karolina PAYNE, INDIRA Work Phone: Start: 07-24-2024 Ultrasound elastogra phy of liver VERO ORTEZ [facility] Work Phone: Start: 06-23-2024 UPPER EUS Karolina PAYNE DNP Work Phone: Start: 06-23-2024 Glucose measurement, blood Blas Merrill MD Work Phone: Start: 06-16-2024 Radionuclide gastric emptying study VEROJEAN HASTINGS Work Phone: Start: 05-07-2024 CBC AND ELECTRONIC DIFF Karolina Piedra APRN-ALEXEI, INDIRA Work Phone: Start: 05-07-2024 Complete blood count with white cell differential, automated Karolina Piedra APRN-ALEXEI, INDIRA Work Phone: Start: 05-07-2024 Comprehensive metabo lic panel Karolina Piedra APRN-INDIRA LINDA Work Phone: Start: 07-02-2023 Clsr lacrimal punctu m plug each Melissa Cabrales OD Work Phone: Start: 05-03-2023 INFLUENZA [...] Phone: Start: 04-18-2023 Plain chest X-ray Dr. Carrie Douglass Work Phone: Start: 01-20-2023 Plain chest X-ray Start: 01-20-2023 CT of head without contrast Start: 01-20-[address] Papa Douglass Work Phone: Start: 11-12-2022 Mammography Coco Perry nhof MUTTON PUNCHER.DESIZING MACHINE OFFBEARER Work Phone: Start: 10-25-2022 Plain chest X-ray Start: 10-10-2022 Urine culture Start: 10-01-2022 STREP A MOLECULAR (POC) Coco Waters MUTTON PUNCHER.DESIZING MACHINE OFFBEARER Work Phone: Start: 09-21-2022 Plain chest X-ray [...] et rgnt auto w/o microscopy Mela Murphy MUTTON PUNCHER.DESIZING MACHINE OFFBEARER Work Phone: Start: 06-17-2022 Plain x-ray of hand Start: 06-15-2022 Radex hand minimum 3 views Ravinder Cervantes M[employer]TON P[employer]CHER.DESIZING MACHINE OFFBEARER Work Phone: Start: 02-27-2022 Computerized ophthal shaheen imaging retina Melissa Cabrales OD Work Phone: Start: 02-16-2022 Gluc bld gluc mntr d ev cleared fda spec home use [facility] Provider Start: 10-16-2021 Radex hand minimum 3 views Sasha Schroeder M[employer]TON P[employer]CHER.DESIZING MACHINE OFFBEARER Work Phone: Start: 10-09-2021 Mammography Coco Perry nhof [employer]TON P[employer]CHER.DESIZING MACHINE OFFBEARER Work Phone: Start: 01-11-2021 Adult depression scr eening assessment Coco Waters M[employer]TON P[employer]CHER.DESIZING MACHINE OFFBEARER Work Phone: Start: 02-24-2018 Colonoscopy Coco Perry nhof MUTTON PUNCHER.DESIZING MACHINE OFFBEARER Work Phone: Bacteria identified in Blood by Culture Dr. Papa Douglass Work Phone: Cholecystectomy CORTNY BROOK OVER [employer]TON PUNCHER-DESIZING MACHINE OFFBEARER Urine culture Dr. Papa her Work Phone: Urine culture Plan of Treatment Date Care Activity Detail Author Start: 09-02-2034 Tetanus vaccination [facility] Start: 06-06-2028 Tetanus vaccination [facility] Start: 06-06-2028 Urine microalbumin profile [facility] Start: 07-06-2025 End: 07-06-2025 Patient encounter procedure 07/06/2025 1:00 PM EST Office Visit Division of Medical Oncology [address] [phone] Scott Berrios MD, MPH [address] [phone] Division of Medical Oncology Start: 06-25-2025 End: 06-25-2025 Clinical Support Encounter Clinical Lab [facility] Start: 06-23-2025 End: 12-31-2025 Complete blood count with white cell differential, automated CBC, EDIF, PLATELET Lab Routine Neuroendocrine neoplasm of stomach Neuroendocrine cancer Expected: 06/23/2025 (Approximate), Expires: 12/31/2025 [facility] Comment on above: Expected: 06/23/2025 (Approximate), Expi res: 12/31/2025 Start: 06-23-2025 End: 12-31-2025 Comprehensive metabolic 2000 panel - Serum or Plasma COMPREHENSIVE METABOLIC PANEL Lab Routine Neuroendocrine neoplasm of stomach Neuroendocrine cancer Expected: 06/23/2025 (Approximate), Expires: 12/31/2025 [facility] Comment on above: Expected: 06/23/2025 (Approximate), Expi res: 12/31/2025 Start: 06-23-2025 End: 12-31-2025 CT Abdomen and Pelvis WO and W contrast IV CT ABDOMEN/PELVIS WITH AND WITHOUT CONTRAST Imaging Routine Neuroendocrine neoplasm of stomach Neuroendocrine cancer Expected: 06/23/2025 (Approximate), Expires: 12/31/2025 [facility] Comment on above: Expected: 06/23/2025 (Approximate), Expi res: 12/31/2025 Start: 06-23-2025 End: 12-31-2025 CT Chest W contrast IV CT CHEST WITH CONTRAST Imaging Routine Neuroendocrine neoplasm of stomach Neuroendocrine cancer Expected: 06/23/2025 (Approximate), Expires: 12/31/2025 [facility] Comment on above: Expected: 06/23/2025 (Approximate), Expi res: 12/31/2025 Start: 06-23-2025 End: 12-31-2025 Lactate dehydrogenase [Enzymatic activity/volume] in Serum or Plasma LACTATE DEHYDROGENASE Lab Routine Neuroendocrine neoplasm of stomach Neuroendocrine cancer Expected: 06/23/2025 (Approximate), Expires: 12/31/2025 [facility] Comment on above: Expected: 06/23/2025 (Approximate), Expi res: 12/31/2025 Start: 04-19-2025 End: 04-19-2025 Patient encounter procedure 04/19/2025 4:00 PM EDT Appointment [facility] [address] [place] [phone] Natalya Guerin MD [address] [phone] [facility] Start: 03-22-2025 Influenza vaccination INFLUENZA VACCINE (#1) [facility] Start: 01-13-2025 Patient discharge [facility] Start: 01-12-2025 [facility] Start: 01-11-2025 Application of intermittent pneumatic compression device [facility] Start: 01-11-2025 Following clinical pathway protocol [facility] Start: 01-11-2025 Assessment of risk of venous thromboembolism [facility] Start: 01-11-2025 Care regimes management [facility] Start: 01-11-2025 Insertion of catheter into peripheral vein [facility] Start: 01-11-2025 Measuring intake and output [facility] Start: 01-11-2025 Notification of physician [facility] Start: 01-11-2025 Oxygen therapy [facility] Start: 01-11-2025 Providing care according to standard [facility] Start: 01-11-2025 Provision of activity privileges [facility] Start: 01-11-2025 Referral to service [facility] Start: 01-11-2025 Verification routine [facility] Start: 01-11-2025 Admission procedure [facility] Start: 01-11-2025 Hospital admission, emergency, from emergency room, medical nature [facility] Start: 01-11-2025 End: 01-11-2025 [facility] Start: 01-11-2025 Inhalation therapy procedure [facility] Start: 01-10-2025 Bacteria identified in Urine by Culture Urine Culture [facility] Start: 01-10-2025 Urine culture [facility] Start: 12-31-2024 End: 12-31-2024 Patient encounter procedure 12/31/2024 1:30 PM EDT Office Visit Division of Medical Oncology [address] [place] [address] Scott Berrios MD, MPH [address] [place] [phone] Division of Medical Oncology Start: 12-24-2024 End: 12-24-2024 Patient encounter procedure 12/24/2024 2:45 PM EDT Appointment [facility] [address] [place] [phone] Scott Berrios MD, MPH [address] [place] [address] [facility] Start: 12-24-2024 End: 09-04-2025 CHROMOGRANIN A [facility] Comment on above: Expected: 12/24/2024, Expires: Start: 12-24-2024 End: 09-04-2025 Complete blood count with white cell differential, automated CBC, EDIF, PLATELET Lab Routine Neuroendocrine cancer Expected: 12/24/2024, Expires: 09/04/2025 [facility] Comment on above: Expected: 12/24/2024, Expires: Start: 12-24-2024 End: 09-04-2025 Comprehensive metabolic 2000 panel - Serum or Plasma COMPREHENSIVE METABOLIC PANEL Lab Routine Neuroendocrine cancer Expected: 12/24/2024, Expires: 09/04/2025 [facility] Comment on above: Expected: 12/24/2024, Expires: Start: 12-24-2024 End: 09-04-2025 Lactate dehydrogenase [Enzymatic activity/volume] in Serum or Plasma LACTATE DEHYDROGENASE Lab Routine Neuroendocrine cancer Expected: 12/24/2024, Expires: 09/04/2025 [facility] Comment on above: Expected: 12/24/2024, Expires: Start: 12-24-2024 End: 09-04-2025 METHYLMALONIC ACID METHYLMALONIC ACID Lab Routine Neuroendocrine cancer Expected: 12/24/2024, Expires: 09/04/2025 [facility] Comment on above: Expected: 12/24/2024, Expires: Start: 12-24-2024 End: 12-24-2024 Clinical Support Encounter 12/24/2024 1:30 PM EDT Clinical Support Encounter Clinical Lab [facility] 1 [address] [place] [address] Scott Berrios MD, MPH [address] [place] [address] Clinical Lab [facility] 1 Start: 11-03-2024 End: 11-03-2024 [facility] Start: 10-06-2024 Walking distance 6 minutes [facility] Start: 10-05-2024 Measurement of respiratory function [facility] Start: 09-30-2024 [facility] Start: 09-03-2024 End: 09-03-2024 Patient encounter procedure [facility] Start: 08-27-2024 End: 08-27-2024 Patient encounter procedure 08/27/2024 3:00 PM EST Office Visit Division of Medical Oncology [address] [phone] Scott Berrios MD, MPH [address] [phone] Division of Medical Oncology Start: 08-14-2024 End: 08-14-2024 Patient encounter procedure 08/14/2024 3:15 PM EST Appointment [facility] [place] [address] Lacy Escobedo [address] [place] [address] Scott Berrios MD, MPH [address] [phone] [facility] Start: 08-14-2024 End: 07-30-2025 ANTI PARIETAL ANTIBODY ANTI PARIETAL ANTIBODY Lab Routine Neuroendocrine neoplasm of stomach Expected: 08/14/2024, Expires: 07/30/2025 [facility] Comment on above: Expected: 08/14/2024, Expires: Start: 08-14-2024 End: 07-30-2025 CALCITONIN CALCITONIN Lab Routine Neuroendocrine neoplasm of stomach Expected: 08/14/2024, Expires: 07/30/2025 [facility] Comment on above: Expected: 08/14/2024, Expires: Start: 08-14-2024 End: 07-31-2025 CHROMOGRANIN A [facility] Comment on above: Expected: 08/14/2024, Expires: Expected: 08/14/2024 , Expires: 07/31/2025 Start: 08-14-2024 End: 07-30-2025 Complete blood count with white cell differential, automated CBC, EDIF, PLATELET Lab Routine Neuroendocrine neoplasm of stomach Expected: 08/14/2024, Expires: 07/30/2025 [facility] Comment on above: Expected: 08/14/2024, Expires: Start: 08-14-2024 End: 07-30-2025 Comprehensive metabolic 2000 panel - Serum or Plasma COMPREHENSIVE METABOLIC PANEL Lab Routine Neuroendocrine neoplasm of stomach Expected: 08/14/2024, Expires: 07/30/2025 [facility] Comment on above: Expected: 08/14/2024, Expires: Start: 08-14-2024 End: 07-30-2025 Cyanocobalamin vitamin b-12 VITAMIN B12 Lab Routine Neuroendocrine neoplasm of stomach Expected: 08/14/2024, Expires: 07/30/2025 [facility] Comment on above: Expected: 08/14/2024, Expires: Start: 08-14-2024 End: 07-30-2025 GASTRIN - NON-STIMULATED GASTRIN - NON-STIMULATED Lab Routine Neuroendocrine neoplasm of stomach Expected: 08/14/2024, Expires: 07/30/2025 [facility] Comment on above: Expected: 08/14/2024, Expires: Start: 08-14-2024 End: 07-30-2025 INTRINSIC FACTOR ANTIBODY INTRINSIC FACTOR ANTIBODY Lab Routine Neuroendocrine neoplasm of stomach Expected: 08/14/2024, Expires: 07/30/2025 [facility] Comment on above: Expected: 08/14/2024, Expires: Start: 08-14-2024 End: 07-30-2025 Lactate dehydrogenase [Enzymatic activity/volume] in Serum or Plasma LACTATE DEHYDROGENASE Lab Routine Neuroendocrine neoplasm of stomach Expected: 08/14/2024, Expires: 07/30/2025 [facility] Comment on above: Expected: 08/14/2024, Expires: Start: 08-14-2024 End: 07-30-2025 METHYLMALONIC ACID METHYLMALONIC ACID Lab Routine Neuroendocrine neoplasm of stomach Expected: 08/14/2024, Expires: 07/30/2025 [facility] Comment on above: Expected: 08/14/2024, Expires: Start: 08-14-2024 End: 07-30-2025 PANCREATIC POLYPEPTIDE PANCREATIC POLYPEPTIDE Lab Routine Neuroendocrine neoplasm of stomach Expected: 08/14/2024, Expires: 07/30/2025 [facility] Comment on above: Expected: 08/14/2024, Expires: Start: 08-14-2024 End: 07-30-2025 PTH INTACT PTH INTACT Lab Routine Neuroendocrine neoplasm of stomach Expected: 08/14/2024, Expires: 07/30/2025 [facility] Comment on above: Expected: 08/14/2024, Expires: Start: 08-13-2024 End: 07-30-2025 ANTI PARIETAL ANTIBODY ANTI PARIETAL ANTIBODY Lab Routine Neuroendocrine neoplasm of stomach Expected: 08/13/2024, Expires: 07/30/2025 [facility] Comment on above: Expected: 08/13/2024, Expires: Start: 08-13-2024 End: 07-30-2025 CALCITONIN CALCITONIN Lab Routine Neuroendocrine neoplasm of stomach Expected: 08/13/2024, Expires: 07/30/2025 [facility] Comment on above: Expected: 08/13/2024, Expires: Start: 08-13-2024 End: 07-30-2025 CHROMOGRANIN A [facility] Comment on above: Expected: 08/13/2024, Expires: Expected: 08/13/2024 (Approximate), Expires: 07/30/2025 Start: 08-13-2024 End: 07-30-2025 Complete blood count with white cell differential, automated CBC, EDIF, PLATELET Lab Routine Neuroendocrine neoplasm of stomach Expected: 08/13/2024, Expires: 07/30/2025 [facility] Comment on above: Expected: 08/13/2024, Expires: Start: 08-13-2024 End: 07-30-2025 Comprehensive metabolic 2000 panel - Serum or Plasma COMPREHENSIVE METABOLIC PANEL Lab Routine Neuroendocrine neoplasm of stomach Expected: 08/13/2024, Expires: 07/30/2025 [facility] Comment on above: Expected: 08/13/2024, Expires: Start: 08-13-2024 End: 07-30-2025 Cyanocobalamin vitamin b-12 VITAMIN B12 Lab Routine Neuroendocrine neoplasm of stomach Expected: 08/13/2024, Expires: 07/30/2025 [facility] Comment on above: Expected: 08/13/2024, Expires: Start: 08-13-2024 End: 07-30-2025 GASTRIN - NON-STIMULATED GASTRIN - NON-STIMULATED Lab Routine Neuroendocrine neoplasm of stomach Expected: 08/13/2024, Expires: 07/30/2025 [facility] Comment on above: Expected: 08/13/2024, Expires: Start: 08-13-2024 End: 07-30-2025 INTRINSIC FACTOR ANTIBODY INTRINSIC FACTOR ANTIBODY Lab Routine Neuroendocrine neoplasm of stomach Expected: 08/13/2024, Expires: 07/30/2025 [facility] Comment on above: Expected: 08/13/2024, Expires: Start: 08-13-2024 End: 07-30-2025 Lactate dehydrogenase [Enzymatic activity/volume] in Serum or Plasma LACTATE DEHYDROGENASE Lab Routine Neuroendocrine neoplasm of stomach Expected: 08/13/2024, Expires: 07/30/2025 [facility] Comment on above: Expected: 08/13/2024, Expires: Start: 08-13-2024 End: 07-30-2025 METHYLMALONIC ACID METHYLMALONIC ACID Lab Routine Neuroendocrine neoplasm of stomach Expected: 08/13/2024, Expires: 07/30/2025 [facility] Comment on above: Expected: 08/13/2024, Expires: Start: 08-13-2024 End: 07-30-2025 PANCREATIC POLYPEPTIDE PANCREATIC POLYPEPTIDE Lab Routine Neuroendocrine neoplasm of stomach Expected: 08/13/2024, Expires: 07/30/2025 [facility] Comment on above: Expected: 08/13/2024, Expires: Start: 08-13-2024 End: 07-30-2025 PTH INTACT PTH INTACT Lab Routine Neuroendocrine neoplasm of stomach Expected: 08/13/2024, Expires: 07/30/2025 [facility] Comment on above: Expected: 08/13/2024, Expires: Start: 08-12-2024 Subsequent hospital visit by physician 08/12/2024 9:00 PM EST Hospital Encounter Imaging [facility] [address] [facility] [address] [place] [phone] Scott Berrios MD, MPH [address] [place] [phone] Imaging [facility] Start: 07-30-2024 End: 07-30-2025 CT Abdomen and Pelvis WO and W contrast IV CT ABDOMEN/PELVIS WITH AND WITHOUT CONTRAST Imaging Routine Neuroendocrine neoplasm of stomach Neuroendocrine cancer Expected: 07/30/2024, Expires: 07/30/2025 [facility] Comment on above: Expected: 07/30/2024, Expires: Start: 07-29-2024 Colonoscopy w/biopsy single/multiple COLONOSCOPY AND BIOPSY [facility] Start: 07-29-2024 Patient discharge [facility] Start: 07-09-2024 End: 07-09-2024 Telemedicine consultation with patient 07/09/2024 12:45 PM EST Telemedicine Division of Surgical Oncology [address] [place] [phone] Blas Rod MD [address] [place] [phone] Division of Surgical Oncology Start: 07-02-2024 End: 07-02-2024 Patient encounter procedure 07/02/2024 9:[address] [facility] [address] [place] [phone] Karolina Piedra APRN-DESIZING MACHINE OFFBEARER, DNP [address] [place] [address] [facility] Start: 07-02-2024 Subsequent hospital visit by physician 07/02/2024 9:30 AM EST Hospital Encounter [facility] [address] [place] [phone] Karolina Piedra, KHADIJAH-DESIZING MACHINE OFFBEARER, DNP [address] [place] [address] [facility] Start: 06-23-2024 End: 06-23-2025 INTERVENTIONAL UPPER ENDOSCOPY INTERVENTIONAL UPPER ENDOSCOPY GI/Bronch Routine Neuroendocrine tumor Expected: 06/23/2024, Expires: 06/23/2025 [facility] Comment on above: Expected: 06/23/2024, Expires: Start: 06-02-2024 End: 06-02-2024 Patient encounter procedure 06/02/2024 9:40 AM EST Office Visit [facility] [address] [facility] [place] [phone] Darcie Logan PA-C [address] [facility] [place] [place] [address] Colonoscopy screen consult [facility] Comment on above: Colonoscopy screen consult Start: 05-28-2024 BP Controlled (<130/80) BP Controlled (<130/80) [facility] Start: 05-17-2024 BP Controlled (<130/80) BP Controlled (<130/80) [facility] Start: 05-07-2024 BP Controlled (<130/80) BP Controlled (<130/80) [facility] Start: 05-07-2024 End: 05-07-2025 PT Skull base to mid-thigh NUC PET NEUROENDOCRINE Imaging Routine Neuroendocrine tumor Expected: 05/07/2024, Expires: 05/07/2025 [facility] Comment on above: Expected: 05/07/2024, Expires: Start: 05-07-2024 End: 05-07-2025 UPPER EUS UPPER EUS GI/Bronch Routine Neuroendocrine tumor Expected: 05/07/2024, Expires: 05/07/2025 [facility] Comment on above: Expected: 05/07/2024, Expires: Start: 05-05-2024 End: 05-05-2025 CHROMOGRANIN A CHROMOGRANIN A Lab Routine Neuroendocrine tumor Expected: 05/05/2024, Expires: 05/05/2025 [facility] Comment on above: Expected: 05/05/2024, Expires: Start: 05-05-2024 End: 05-05-2025 GASTRIN - NON-STIMULATED GASTRIN - NON-STIMULATED Lab Routine Neuroendocrine tumor Expected: 05/05/2024, Expires: 05/05/2025 [facility] Comment on above: Expected: 05/05/2024, Expires: Start: 05-03-2024 3 comp foot exam completed Diabetic Foot Exam [facility] Start: 05-03-2024 Annual PCP Team Chronic Disease Visit Annual PCP Team Chronic Disease Visit [facility] Start: 05-03-2024 BP Controlled (<130/80) BP Controlled (<130/80) [facility] Start: 05-03-2024 Diabetic foot examination Diabetic Foot Exam [facility] Start: 04-17-2024 Hepatitis B surface antibody level LDL Cholesterol [facility] Start: 04-16-2024 BP Controlled (<130/80) BP Controlled (<130/80) [facility] Start: 03-22-2024 COVID-19 VACCINE () COVID-19 VACCINE () [facility] Start: 03-22-2024 COVID-19 VACCINE ( season) COVID-19 VACCINE () [facility] Start: 03-22-2024 Covid-19 Vaccine ( season) Covid-19 Vaccine () [facility] Start: 03-22-2024 Influenza vaccination Influenza Vaccine (#1) [facility] Start: 03-05-2024 BP CONTROLLED (<130/80) BP CONTROLLED (<130/80) [facility] Start: 03-02-2024 End: 03-02-2024 Patient encounter procedure 03/02/2024 1:45 PM EDT Office Visit [facility] [address] [place], [place] [id number] Melissa Cabrales, OD [address] [place] [address] diabetic eye exam with dry eye follow-up . Ophthalmology Comment on above: diabetic eye exam with dry eye follow-up . Start: 03-01-2024 Glaucoma screening Dilated Retinal Exam [facility] Start: 03-01-2024 Hepatitis C antibody, confirmatory test DILATED RETINAL EXAM [facility] Start: 02-16-2024 Hepatitis B surface antibody level LDL CHOLESTEROL [facility] Start: 01-20-2024 ANNUAL PCP TEAM CHRONIC DISEASE VISIT ANNUAL PCP TEAM CHRONIC DISEASE VISIT [facility] Start: 01-20-2024 BP CONTROLLED (<130/80) BP CONTROLLED (<130/80) [facility] Start: 11-13-2023 Mammography [facility] Start: 11-13-2023 Screening for malignant neoplasm of breast [facility] Start: 11-07-2023 ANNUAL PCP TEAM CHRONIC DISEASE VISIT ANNUAL PCP TEAM CHRONIC DISEASE VISIT [facility] Start: 11-07-2023 BP CONTROLLED (<130/80) BP CONTROLLED (<130/80) [facility] Start: 10-02-2023 ANNUAL PCP TEAM CHRONIC DISEASE VISIT ANNUAL PCP TEAM CHRONIC DISEASE VISIT [facility] Start: 10-02-2023 BP CONTROLLED (<130/80) BP CONTROLLED (<130/80) [facility] Start: 09-28-2023 ANNUAL PCP TEAM CHRONIC DISEASE VISIT ANNUAL PCP TEAM CHRONIC DISEASE VISIT [facility] Start: 09-28-2023 BP CONTROLLED (<130/80) BP CONTROLLED (<130/80) Colon [facility] Start: 09-22-2023 BP CONTROLLED (<130/80) BP CONTROLLED (<130/80) [facility] Start: 08-31-2023 Hepatitis B screening URINE ALBUMIN:CREATININE RATIO [facility] Start: 08-31-2023 Hepatitis B surface antibody level LDL CHOLESTEROL [facility] Start: 08-30-2023 BP CONTROLLED (<130/80) BP CONTROLLED (<130/80) Colon Cl [facility] Start: 08-07-2023 BP CONTROLLED (<130/80) BP CONTROLLED (<130/80) [facility] Start: 07-22-2023 Behavioral Health Screening Behavioral Health Screening [facility] Start: 07-18-2023 ANNUAL PCP TEAM CHRONIC DISEASE VISIT ANNUAL PCP TEAM CHRONIC DISEASE VISIT [facility] Start: 06-28-2023 ANNUAL PCP TEAM CHRONIC DISEASE VISIT ANNUAL PCP TEAM CHRONIC DISEASE VISIT [facility] Start: 06-28-2023 BP CONTROLLED (<130/80) BP CONTROLLED (<130/80) [facility] Start: 06-26-2023 BP CONTROLLED (<130/80) BP CONTROLLED (<130/80) [facility] Start: 06-21-2023 ANNUAL PCP TEAM CHRONIC DISEASE VISIT ANNUAL PCP TEAM CHRONIC DISEASE VISIT [facility] Start: 06-21-2023 BP CONTROLLED (<130/80) BP CONTROLLED (<130/80) [facility] Start: 06-03-2023 End: 08-03-2023 Basic metabolic 2000 panel - Serum or Plasma BASIC METABOLIC PNL Lab Routine Type 2 diabetes mellitus without complication, with long-term current use of insulin (HCC) Stage 3 chronic kidney disease, unspecified whether stage 3a or 3b CKD (HCC) Expected: 06/03/2023 (Approximate), Expires: 08/03/2023 [facility] Work Phone: Comment on above: Expected: 06/03/2023 (Approximate), Expi res: 08/03/2023 Start: 05-21-2023 Hemoglobin A1c measurement HbA1C [facility] Start: 05-21-2023 Hemoglobin A1c/Hemoglobin.total in Blood HBA1C [facility] Start: 04-20-2023 Patient discharge [facility] Start: 04-19-2023 [facility] Start: 04-19-2023 [facility] Start: 04-18-2023 Following clinical pathway protocol [facility] Start: 04-18-2023 Application of elastic bandage [facility] Start: 04-18-2023 Assessment of risk of venous thromboembolism [facility] Start: 04-18-2023 Care regimes management [facility] Start: 04-18-2023 Catheterization of vein [facility] Start: 04-18-2023 Elevation of affected extremity [facility] Start: 04-18-2023 Incentive spirometry [facility] Start: 04-18-2023 Inhalation therapy procedure [facility] Start: 04-18-2023 Insertion of catheter into peripheral vein [facility] Start: 04-18-2023 Measuring intake and output [facility] Start: 04-18-2023 Notification of physician [facility] Start: 04-18-2023 Oxygen therapy [facility] Start: 04-18-2023 Patient education [facility] Start: 04-18-2023 Patient referral to dietitian [facility] Start: 04-18-2023 Providing care according to standard [facility] Start: 04-18-2023 Provision of activity privileges [facility] Start: 04-18-2023 Referral to service [facility] Start: 04-18-2023 [facility] Start: 04-18-2023 Admission procedure [facility] Start: 03-22-2023 Covid-19 Vaccine ( season) Covid-19 Vaccine () [facility] Start: 03-22-2023 Influenza vaccination [facility] Start: 03-19-2023 ANNUAL PCP TEAM CHRONIC DISEASE VISIT ANNUAL PCP TEAM CHRONIC DISEASE VISIT [facility] Start: 03-19-2023 BP CONTROLLED (<130/80) BP CONTROLLED (<130/80) [facility] Start: 03-14-2023 BP CONTROLLED (<130/80) BP CONTROLLED (<130/80) [facility] Start: 03-12-2023 Hepatitis B surface antibody level LDL CHOLESTEROL [facility] Start: 02-28-2023 End: 04-30-2023 Bacteria identified in Urine by Culture [facility] Work Phone: Comment on above: Expected: 02/28/2023, Expires: 3 Start: 02-28-2023 End: 04-30-2023 Urinalysis complete panel - Urine [facility] Work Phone: Comment on above: Expected: 02/28/2023, Expires: 3 Start: 02-27-2023 Hepatitis C antibody, confirmatory test DILATED RETINAL EXAM [facility] Start: 02-24-2023 Colonoscopy COLONOSCOPY [facility] Start: 02-24-2023 COLORECTAL CANCER SCREENING COLORECTAL CANCER SCREENING [facility] Start: 02-24-2023 Screening for malignant neoplasm of colon [facility] Start: 02-19-2023 End: 04-21-2023 Comprehensive metabolic 2000 panel - Serum or Plasma COMP METABOLIC PANEL Lab Routine Mixed hyperlipidemia Uncontrolled type 2 diabetes mellitus with hyperglycemia (HCC) Expected: 02/19/2023 (Approximate), Expires: 04/21/2023 [facility] Work Phone: Comment on above: Expected: 02/19/2023 (Approximate), Expi res: 04/21/2023 Start: 02-19-2023 End: 04-21-2023 Hemoglobin A1c in Blood HGB A1C Lab Routine Uncontrolled type 2 diabetes mellitus with hyperglycemia (HCC) Expected: 02/19/2023 (Approximate), Expires: 04/21/2023 [facility] Work Phone: Comment on above: Expected: 02/19/2023 (Approximate), Expi res: 04/21/2023 Start: 02-19-2023 End: 04-21-2023 Lipid 1996 panel - Serum or Plasma LIPID PANEL BASIC Lab Routine Mixed hyperlipidemia Uncontrolled type 2 diabetes mellitus with hyperglycemia (HCC) Expected: 02/19/2023 (Approximate), Expires: 04/21/2023 [facility] Work Phone: Comment on above: Expected: 02/19/2023 (Approximate), Expi res: 04/21/2023 Start: 02-16-2023 BP CONTROLLED (<130/80) BP CONTROLLED (<130/80) [facility] Start: 02-08-2023 ANNUAL PCP TEAM CHRONIC DISEASE VISIT ANNUAL PCP TEAM CHRONIC DISEASE VISIT [facility] Start: 02-08-2023 BP CONTROLLED (<130/80) BP CONTROLLED (<130/80) [facility] Start: 01-20-2023 [facility] Start: 01-20-2023 Bacteria identified in Urine by Culture Urine Culture [facility] Start: 12-25-2022 Hemoglobin A1c/Hemoglobin.total in Blood HBA1C [facility] Start: 11-22-2022 HPV TESTING HPV TESTING [facility] Start: 11-22-2022 PAP TESTING PAP TESTING [facility] Start: 11-22-2022 Screening for malignant neoplasm of cervix [facility] Start: 11-09-2022 ANNUAL PCP TEAM CHRONIC DISEASE VISIT ANNUAL PCP TEAM CHRONIC DISEASE VISIT [facility] Start: 10-28-2022 End: 12-28-2022 25-hydroxyvitamin D3 [Mass/volume] in Serum or Plasma VITAMIN D 25 HYDROXY Lab Routine Vitamin D deficiency Expected: 10/28/2022, Expires: 12/28/2022 [facility] Work Phone: Comment on above: Expected: 10/28/2022, Expires: 3 Start: 10-28-2022 End: 12-28-2022 CBC W Auto Differential panel - Blood CBC + DIFF Lab Routine Iron deficiency anemia secondary to inadequate dietary iron intake Expected: 10/28/2022, Expires: 12/28/2022 [facility] Work Phone: Comment on above: Expected: 10/28/2022, Expires: 3 Start: 10-28-2022 End: 12-28-2022 Ferritin [Mass/volume] in Serum or Plasma FERRITIN BLD Lab Routine Iron deficiency anemia secondary to inadequate dietary iron intake Expected: 10/28/2022, Expires: 12/28/2022 [facility] Work Phone: Comment on above: Expected: 10/28/2022, Expires: 3 Start: 10-28-2022 End: 12-28-2022 Iron and Iron binding capacity panel - Serum or Plasma IRON + TIBC Lab Routine Iron deficiency anemia secondary to inadequate dietary iron intake Expected: 10/28/2022, Expires: 12/28/2022 [facility] Work Phone: Comment on above: Expected: 10/28/2022, Expires: 3 Start: 10-28-2022 End: 12-28-2022 Thyrotropin [Units/volume] in Serum or Plasma TSH BLD Lab Routine Hypothyroidism, unspecified type Expected: 10/28/2022, Expires: 12/28/2022 [facility] Work Phone: Comment on above: Expected: 10/28/2022, Expires: 3 Start: 10-28-2022 End: 12-28-2022 Thyroxine (T4) free [Mass/volume] in Serum or Plasma T4 FREE/FREE THYROX Lab Routine Hypothyroidism, unspecified type Expected: 10/28/2022, Expires: 12/28/2022 [facility] Work Phone: Comment on above: Expected: 10/28/2022, Expires: 3 Start: 10-25-2022 [facility] Start: 10-16-2022 BP CONTROLLED (<130/80) BP CONTROLLED (<130/80) [facility] Start: 10-10-2022 [facility] Start: 10-09-2022 Mammography MAMMOGRAM [facility] Start: 10-06-2022 ANNUAL PCP TEAM CHRONIC DISEASE VISIT ANNUAL PCP TEAM CHRONIC DISEASE VISIT [facility] Start: 10-06-2022 Hepatitis B surface antibody level LDL CHOLESTEROL [facility] Start: 09-21-2022 [facility] Start: 09-19-2022 End: 11-19-2022 Comprehensive metabolic 2000 panel - Serum or Plasma COMP METABOLIC PANEL Lab Routine Type 2 diabetes mellitus without complication, with long-term current use of insulin (HCC) Expected: 09/19/2022, Expires: 11/19/2022 [facility] Work Phone: Comment on above: Expected: 09/19/2022, Expires: 3 Start: 09-19-2022 End: 11-19-2022 Hemoglobin A1c in Blood HGB A1C Lab Routine Type 2 diabetes mellitus without complication, with long-term current use of insulin (HCC) Expected: 09/19/2022, Expires: 11/19/2022 [facility] Work Phone: Comment on above: Expected: 09/19/2022, Expires: 3 Start: 09-15-2022 Hemoglobin A1c/Hemoglobin.total in Blood HBA1C [facility] Start: 08-31-2022 End: 10-31-2022 Bacteria identified in Urine by Culture [facility] Work Phone: Comment on above: Expected: 08/31/2022, Expires: 3 Start: 08-31-2022 Iv infusion therapy/prophylaxis /dx 1st to 1 hr THER/PROPH/DIAG IV INF [facility] Start: 08-22-2022 End: 10-22-2022 ALBUMIN/CREAT RATIO RND UR ALBUMIN/CREAT RATIO RND UR Lab Routine Uncontrolled type 2 diabetes mellitus with hyperglycemia (HCC) Expected: 08/22/2022, Expires: 10/22/2022 [facility] Work Phone: Comment on above: Expected: 08/22/2022, Expires: 3 Start: 08-22-2022 End: 10-22-2022 Comprehensive metabolic 2000 panel - Serum or Plasma COMP METABOLIC PANEL Lab Routine Uncontrolled type 2 diabetes mellitus with hyperglycemia (HCC) Expected: 08/22/2022, Expires: 10/22/2022 [facility] Work Phone: Comment on above: Expected: 08/22/2022, Expires: 3 Start: 08-22-2022 End: 10-22-2022 Hemoglobin A1c in Blood HGB A1C Lab Routine Uncontrolled type 2 diabetes mellitus with hyperglycemia (HCC) Expected: 08/22/2022, Expires: 10/22/2022 [facility] Work Phone: Comment on above: Expected: 08/22/2022, Expires: 3 Start: 08-22-2022 End: 10-22-2022 LIPID PANEL, NONFASTING LIPID PANEL, NONFASTING Lab Routine Uncontrolled type 2 diabetes mellitus with hyperglycemia (HCC) Expected: 08/22/2022, Expires: 10/22/2022 [facility] Work Phone: Comment on above: Expected: 08/22/2022, Expires: 3 Start: 07-22-2022 DEPRESSION ASSESSMENT DEPRESSION ASSESSMENT [facility] Start: 07-22-2022 End: 09-21-2022 Thyrotropin [Units/volume] in Serum or Plasma TSH BLD Lab Routine Hypothyroidism, unspecified type Expected: 07/22/2022, Expires: 09/21/2022 [facility] Work Phone: Comment on above: Expected: 07/22/2022, Expires: 3 Start: 07-22-2022 End: 09-21-2022 Thyroxine (T4) free [Mass/volume] in Serum or Plasma T4 FREE/FREE THYROX Lab Routine Hypothyroidism, unspecified type Expected: 07/22/2022, Expires: 09/21/2022 [facility] Work Phone: Comment on above: Expected: 07/22/2022, Expires: 3 Start: 06-26-2022 End: 07-10-2022 Influenza virus A and B RNA and SARS-CoV-2 (COVID-19) N gene panel - Respiratory specimen by [place] with probe detection [facility] Work Phone: Comment on above: Expected: 06/26/2022, Expires: 2 Start: 06-12-2022 Hemoglobin A1c/Hemoglobin.total in Blood HBA1C [facility] Start: 04-25-2022 End: 06-25-2022 Hemoglobin A1c in Blood HGB A1C Lab Routine Uncontrolled type 2 diabetes mellitus with hyperglycemia (HCC) Hypothyroidism, unspecified type Expected: 04/25/2022, Expires: 06/25/2022 [facility] Work Phone: Comment on above: Expected: 04/25/2022, Expires: 2 Start: 04-25-2022 End: 06-25-2022 Thyrotropin [Units/volume] in Serum or Plasma TSH BLD Lab Routine Uncontrolled type 2 diabetes mellitus with hyperglycemia (HCC) Hypothyroidism, unspecified type Expected: 04/25/2022, Expires: 06/25/2022 [facility] Work Phone: Comment on above: Expected: 04/25/2022, Expires: 2 Start: 04-25-2022 End: 06-25-2022 Thyroxine (T4) free [Mass/volume] in Serum or Plasma T4 FREE/FREE THYROX Lab Routine Uncontrolled type 2 diabetes mellitus with hyperglycemia (HCC) Hypothyroidism, unspecified type Expected: 04/25/2022, Expires: 06/25/2022 [facility] Work Phone: Comment on above: Expected: 04/25/2022, Expires: 2 Start: 04-18-2022 COVID-19 VACCINE (5 - Booster for Pfizer series) COVID-19 VACCINE (5 - Booster for Pfizer series) [facility] Start: 04-18-2022 COVID-19 VACCINE (5 - Pfizer series) COVID-19 VACCINE (5 - Pfizer series) [facility] Start: 04-06-2022 FECAL OCCULT BLOOD FECAL OCCULT BLOOD [facility] Start: 04-06-2022 Screening for malignant neoplasm of colon Fecal Occult Blood [facility] Start: 03-22-2022 Influenza vaccination [facility] Start: 03-11-2022 End: 05-11-2022 CBC W Auto Differential panel - Blood CBC + DIFF Lab Routine Anemia, unspecified type Expected: 03/11/2022 (Approximate), Expires: 05/11/2022 [facility] Work Phone: Comment on above: Expected: 03/11/2022 (Approximate), Expi res: 05/11/2022 Start: 03-11-2022 End: 05-11-2022 Comprehensive metabolic 2000 panel - Serum or Plasma COMP METABOLIC PANEL Lab Routine Uncontrolled type 2 diabetes mellitus with hyperglycemia (HCC) Mixed hyperlipidemia Essential hypertension Expected: 03/11/2022 (Approximate), Expires: 05/11/2022 [facility] Work Phone: Comment on above: Expected: 03/11/2022 (Approximate), Expi res: 05/11/2022 Start: 03-11-2022 End: 05-11-2022 Hemoglobin A1c in Blood HGB A1C Lab Routine Uncontrolled type 2 diabetes mellitus with hyperglycemia (HCC) Expected: 03/11/2022 (Approximate), Expires: 05/11/2022 [facility] Work Phone: Comment on above: Expected: 03/11/2022 (Approximate), Expi res: 05/11/2022 Start: 03-11-2022 End: 05-11-2022 Lipid 1996 panel - Serum or Plasma LIPID PANEL BASIC Lab Routine Mixed hyperlipidemia Essential hypertension Expected: 03/11/2022 (Approximate), Expires: 05/11/2022 [facility] Work Phone: Comment on above: Expected: 03/11/2022 (Approximate), Expi res: 05/11/2022 Start: 03-11-2022 End: 05-11-2022 Thyrotropin [Units/volume] in Serum or Plasma TSH BLD Lab Routine Hypothyroidism, unspecified type Expected: 03/11/2022 (Approximate), Expires: 05/11/2022 [facility] Work Phone: Comment on above: Expected: 03/11/2022 (Approximate), Expi res: 05/11/2022 Start: 02-18-2022 Blood chemistry [facility] Work Phone: Start: 02-17-2022 Blood chemistry [facility] Work Phone: Start: 02-16-2022 End: 04-18-2022 Fungus identified in Unspecified specimen by Culture [facility] Work Phone: Comment on above: Expected: 02/16/2022, Expires: Start: 02-16-2022 Blood chemistry [facility] Work Phone: Start: 02-15-2022 Blood chemistry [facility] Work Phone: Start: 02-14-2022 Blood chemistry [facility] Work Phone: Start: 02-13-2022 Blood chemistry [facility] Work Phone: Start: 02-12-2022 Blood chemistry [facility] Work Phone: Start: 02-11-2022 Patient discharge [facility] Work Phone: Start: 02-10-2022 Inhalation therapy procedure [facility] Work Phone: Start: 02-09-2022 Assessment of risk of venous thromboembolism [facility] Work Phone: Start: 02-09-2022 Care regimes management [facility] Work Phone: Start: 02-09-2022 Insertion of catheter into peripheral vein [facility] Work Phone: Start: 02-09-2022 Measuring intake and output [facility] Work Phone: Start: 02-09-2022 Notification of physician [facility] Work Phone: Start: 02-09-2022 Oxygen therapy [facility] Work Phone: Start: 02-09-2022 Providing care according to standard [facility] Work Phone: Start: 02-09-2022 Provision of activity privileges [facility] Work Phone: Start: 02-09-2022 Referral to service [facility] Work Phone: Start: 02-09-2022 [facility] Work Phone: Start: 02-09-2022 Following clinical pathway protocol [facility] Work Phone: Start: 02-09-2022 Verification routine [facility] Work Phone: Start: 02-09-2022 Admission procedure [facility] Work Phone: Start: 02-09-2022 Blood culture [facility] Work Phone: Start: 02-09-2022 [facility] Work Phone: Start: 02-09-2022 Hepatitis C antibody, confirmatory test DILATED RETINAL EXAM [facility] Start: 02-09-2022 Patient referral to dietitian [facility] Work Phone: Start: 02-08-2022 Hemoglobin A1c/Hemoglobin.total in Blood HBA1C [facility] Start: 01-18-2022 Influenza vaccination INFLUENZA (#1) [facility] Comment on above: Postponed from 03/22/2021 (Declined at t his time) Start: 01-11-2022 3 comp foot exam completed DIABETIC FOOT EXAM [facility] Start: 01-11-2022 Adult depression screening assessment DEPRESSION SCREENING [facility] Start: 01-11-2022 HEPATITIS C SCREENING HEPATITIS C SCREENING [facility] Comment on above: Postponed from 1984 (Declined at t his time) Start: 01-11-2022 HIV SCREENING HIV SCREENING [facility] Comment on above: Postponed from 1984 (Declined at t his time) Start: 01-06-2022 Hemoglobin A1c/Hemoglobin.total in Blood HBA1C [facility] Start: 07-22-2021 DEPRESSION ASSESSMENT DEPRESSION ASSESSMENT [facility] Start: 07-08-2021 Hepatitis B screening URINE ALBUMIN:CREATININE RATIO [facility] Start: 06-21-2021 COVID-19 VACCINE (4 - Booster for Pfizer series) COVID-19 VACCINE (4 - Booster for Pfizer series) [facility] Start: 01-08-2021 COVID-19 VACCINE (3 - Booster for Pfizer series) COVID-19 VACCINE (3 - Booster for Pfizer series) [facility] Start: 02-24-2019 Screening for malignant neoplasm of colon COLORECTAL CANCER SCREENING DISCUSSION [facility] Start: 2016 SHINGRIX VACCINE (1 of 2) SHINGRIX VACCINE (1 of 2) [facility] Start: 2016 Zoster vaccine hzv live for subcutaneous use ZOSTER (SHINGLES) VACCINE (1 of 2) [facility] Start: 02-04-2013 PNEUMOCOCCAL (2 - PCV) PNEUMOCOCCAL (2 - PCV) [facility] Start: 02-04-2013 Pneumococcal vaccination Pneumococcal Vaccine (2 - PCV) [facility] Start: 12-04-2011 COLOGUARD (FIT-DNA) COLOGUARD (FIT-DNA) [facility] Start: 12-04-[address] COLONOGRAPHY [facility] Start: 12-04-2011 Screening for malignant neoplasm of colon [facility] Start: 12-04-2011 SIGMOIDOSCOPY SIGMOIDOSCOPY [facility] Start: 2006 Lipid panel LIPID SCREENING [facility] Start: 12-04-1987 Screening for malignant neoplasm of cervix CERVICAL CANCER SCREENING DISCUSSION [facility] Start: 1985 HEPATITIS B (1 of 3 - Risk 3-dose series) HEPATITIS B (1 of 3 - Risk 3-dose series) [facility] Start: 1985 Hepatitis B vaccination HEP B VACCINE (1 of 3 - 19+ 3-dose series) [facility] Start: 1985 Hepatitis B Vaccine (1 of 3 - 19+ 3-dose series) Hepatitis B Vaccine (1 of 3 - 19+ 3-dose series) [facility] Start: 1984 Anxiety Screening Anxiety Screening [facility] Start: 1984 BP CONTROLLED (<130/80) [facility] Start: 1984 Depression Screening Depression Screening [facility] Start: 1984 HEPATITIS C SCREENING HEPATITIS C SCREENING [facility] Start: 1984 Hepatitis C screening Hepatitis C Screening [facility] Start: 1984 HIV SCREENING HIV SCREENING [facility] Start: 1984 HIV screening HIV Screening [facility] Start: 1981 HIV screening HIV SCREENING DISCUSSION [facility] Start: 1966 HEPATITIS B (1 of 3 - 3-dose series) HEPATITIS B (1 of 3 - 3-dose series) [facility] Start: 1966 Hepatitis B Vaccine (1 of 3 - 3-dose series) Hepatitis B Vaccine (1 of 3 - 3-dose series) [facility] Start: 1966 Hepatitis C screening HEPATITIS C VIRUS SCREENING [facility] Start: 1966 Thyroid stimulating hormone measurement TSH [facility] Bacteria identified in Blood by Culture Blood Culture [facility] Work Phone: Bacteria identified in Urine by Culture Urine Culture [facility] Bacteria identified in Urine by Culture URINE CULTURE Microbiology Routine Urinary tract infection with hematuria, site unspecified Ordered: 08/07/2022 [facility] Work Phone: Comment on above: Ordered: 08/07/2022 Blood culture [facility] Work Phone: JUDIE / TRICHOMONA S AMPLIFICATION JUDIE / TRICHOMONAS AMPLIFICATION Lab Routine Vaginal itching Ordered: 02/16/2022 [facility] Work Phone: Comment on above: Ordered: 02/16/2022 CBC W Auto Different ial panel - Blood [facility] CHROMOGRANIN A CHROMOGRANIN A L ab Routine Neuroendocrine tumor 05/07/2024 7:12 AM [facility] metabo lic 1999 panel - Serum or Plasma [facility] Comprehensive metabo lic 1999 panel - Serum or Plasma [facility] End: 12-24-2024 CT Abdomen and Pelvis WO and W contrast IV [facility] Comment on above: 1 Occurrences starting 12/24/2024 until 12/24/2024 End: 12-17-2025 DBT Breast - bilateral screening AMY SCREENING W JORGE ALBERTO Radiology Routine Encounter for screening mammogram for breast cancer 1 Occurrences starting 11/17/2024 until 12/17/2025 [facility] Work Phone: Comment on above: 1 Occurrences starting 11/17/2024 until 12/17/2025 GASTRIN - NON-STIMULATED GASTRIN - NON-STIMULATED Lab Routine Neuroendocrine tumor 05/07/2024 7:12 AM EDT [facility] GASTRIN - NON-STIMULATED GASTRIN - NON-STIMULATED Lab Routine Neuroendocrine neoplasm of stomach 12/24/2024 1:15 PM EDT [facility] Glucose [Mass/volume ] in Serum or Plasma [facility] Work Phone: Glucose [Mass/volume ] in Serum or Plasma GLUCOSE, BLOOD (POC) Lab Routine Rash, skin Ordered: 02/16/2022 [facility] Work Phone: Comment on above: Ordered: 02/16/2022 Influenza virus A an d B RNA and SARS-CoV-2 (COVID-19) N gene panel - Respiratory specimen by [place] with probe detection COVID WITH FLUA+B, ROUTINE Microbiology Routine Acute cough 10/01/2022 9:26 AM EDT [facility] Work Phone: Magnesium measurement [facility] End: 01-16-2025 MG Breast Screening AMY SCREENING Radiology Routine Encounter for screening mammogram for breast cancer 1 Occurrences starting 12/18/2023 until 01/16/2025 [facility] Work Phone: Comment on above: 1 Occurrences starting 12/18/2023 until 01/16/2025 PANCREATIC POLYPEPTIDE PANCREATI C POLYPEPTIDE Lab Routine Neuroendocrine neoplasm of stomach 12/24/2024 1:15 PM EDT [facility] Work Phone: Patient Education [facility] Work Phone: Patient referral [facility] Work Phone: Percutaneous tests w/allergenic extracts ALLRGY SKN TST (EXTRACTS) IMMEDI Procedures Routine Nonallergic rhinitis Ordered: 08/30/2022 [facility] Work Phone: Comment on above: Ordered: 08/30/2022 Procedure [facility] Prothrombin time [facility] SURG PATH REQUEST [facility] Comment on above: Release Upon Ordering for 1 Occurrences starting 06/23/2024, 1 completed SURG PATH REQUEST [facility] Comment on above: Release Upon Ordering for 1 Occurrences starting 09/03/2024, 1 completed T4 free measurement [facility] Thyroid stimulating hormone measurement [facility] Urine culture Urine Culture [facility] Work Phone: Urine culture [facility] Vitamin D, 25-hydrox y measurement [facility] End: 12-16-2023 XR FOOT GENERAL 3V AP/LAT/OBL BILATERAL XR FOOT GENERAL 3V AP/LAT/OBL BILATERAL Radiology Routine Bilateral foot pain 1 Occurrences starting 11/16/2022 until 12/16/2023 [facility] Work Phone: Comment on above: 1 Occurrences starting 11/16/2022 until 12/16/2023 [facility] c [facility] c [facility] c [facility] c [facility] c [facility] c [facility] Immunizations Immunization Date Immunization Notes Care Provider Fa cili 09-02-2024 tetanus toxoid, redu james diphtheria toxoid, and acellular pertussis vaccine, adsorbed; Translations: [Boostrix (Tdap)] [employer] [facility] 09-02-2024 Pneumococcal conjuga te PCV20, polysaccharide [id number] conjugate, adjuvant, PF; Translations: [Prevnar 20] [employer] [facility] 05-11-2024 influenza, injectabl e, quadrivalent, contains preservative; Translations: [Fluarix PF Prefilled Syringe ] [employer] [facility] 05-11-2024 influenza virus vaccine, unspecified formulation Sridevi Connors RN [facility] 04-04-2024 influenza, seasonal, injectable, preservative free [facility] [place] [facility] [employer] [employer]NA[employer] Work Phone: [facility] 05-03-2023 influenza, injectabl e, quadrivalent, contains preservative Papa Douglass MD Work Phone: [facility] 05-03-2023 pneumococcal (PCV20) vaccine, 20 valent (PREVNAR 20) Papa Douglass MD Work Phone: [facility] 05-03-2023 pneumococcal Conjuga te, unspecified formulation Papa Douglass MD Work Phone: [facility] Work Phone: 05-03-2023 influenza virus vaccine, unspecified formulation Xr Melvin Work Phone: [facility] 02-19-2021 Covid (Pfizer) Dr. Papa morocho Work Phone: [facility] 08-10-2020 COVID-19 vaccine, ag e 12+ yr (PFIZER-BIONTECH - PURPLE TOP) Coco Tannhof MUTTON PUNCHER.DESIZING MACHINE OFFBEARER Work Phone: [facility] 07-13-2020 COVID-19 vaccine, ag e 12+ yr (PFIZER-BIONTECH - PURPLE TOP) Coco Tannhof MUTTON PUNCHER.DESIZING MACHINE OFFBEARER Work Phone: [facility] 04-21-2020 influenza, seasonal, injectable Coco Tannhof MUTTON PUNCHER.DESIZING MACHINE OFFBEARER Work Phone: [facility] 04-21-2020 influenza virus vaccine, unspecified formulation Mela Murphy MUTTON PUNCHER.DESIZING MACHINE OFFBEARER Work Phone: [facility] 06-06-2018 tetanus toxoid, redu james diphtheria toxoid, and acellular pertussis vaccine, adsorbed Coco Tannhof MUTTON PUNCHER.DESIZING MACHINE OFFBEARER Work Phone: [facility] 04-04-2017 influenza, injectabl e, quadrivalent, contains preservative Coco Tannhof MUTTON PUNCHER.DESIZING MACHINE OFFBEARER Work Phone: [facility] 01-24-2017 tetanus toxoid, redu james diphtheria toxoid, and acellular pertussis vaccine, adsorbed Coco Tannhof MUTTON PUNCHER.DESIZING MACHINE OFFBEARER Work Phone: [facility] 05-20-2016 influenza, injectabl e, quadrivalent, contains preservative Coco Tannhof MUTTON PUNCHER.DESIZING MACHINE OFFBEARER Work Phone: [facility] 08-02-2015 influenza, injectabl e, quadrivalent, contains preservative Coco Tannhof MUTTON PUNCHER.DESIZING MACHINE OFFBEARER Work Phone: [facility] 08-02-2015 influenza, injectabl e, quadrivalent, preservative free Coco Tannhof MUTTON PUNCHER.DESIZING MACHINE OFFBEARER Work Phone: [facility] 05-26-2012 influenza virus vaccine, unspecified formulation Coco Waters APRN.ALEXEI Work Phone: [facility] 02-05-2012 pneumococcal polysaccharide vaccine, 23 valent Coco Waters APRN.CNP Work Phone: [facility] Payers Date Payer Category Payer Medicaid (Managed Care) [facility] [id number] 2024 Self-pay [id number] 2023 Unknown [id number] 2022 Medicaid [id number] 2022 Government (not [facility] care or Medicaid) [facility] [id number] 2022 Unknown [id number]. 1.13.159.2 .[id number] 2011 Private Health Insurance [employer] A ETNA CHOICE POS II [id number] 2011-Present [phone] [address] [place] [address] POS [id number] .[id number] 2011 Private Health Insurance [id number] 2011 Private Health Insurance 1.2 .840.655016.1.13.159.2 .[id number] 1966 Unknown [id number] 2.16840.1.248658.3.579.2 1966 Unknown [id number] 2.16840.1.643452.3.579.2 1966 Unknown [id number] 2.840.1.441236.3.579.2 1966 Unknown [id number] 2.840.1.085310.3.579.2 1966 Unknown [id number] 2.16840.1.823499.3.579.2 1966 Unknown [id number] 2.16840.1.860766.3.579.2 1966 Unknown [id number] 2.16840.1.284685.3.579.2 1966 Unknown [id number] 2.16840.1.559056.3.579.2 1966 Unknown [id number] 2.16840.1.173434.3.579.2 1966 Unknown [id number] 2.16840.1.294851.3.579.2 1966 Unknown [id number] 2.16840.1.850603.3.579.2 1966 Unknown [id number] 2.16.840.1.774699.3.579.2 .62 1966 Unknown [id number] 2.16.840.1.577130.3.579.2 .62 1966 Unknown [id number] 2.16.840.1.172376.3.579.2 .62 1966 Unknown [id number] 2.16.840.1.290144.3.579.2 .62 1966 Unknown [id number] 2.16.840.1.588714.3.579.2 .1966 Unknown [id number] 2.16.840.1.378108.3.579.2 1966 Unknown [id number] 2.16.840.1.041398.3.579.2 .594 1966 Unknown [id number] 2..840.1.581900.3.579.2 .594 1966 Unknown [id number] 2.16.840.1.283528.3.579.2 .1966 Unknown [id number] 2.16.840.1.991391.3.579.2 1966 Unknown [id number] 2.16.840.1.221100.3.579.2 .594 1966 Unknown [id number] 2.16.840.1.890338.3.579.2 .594 1966 Unknown [id number] 2.16.840.1.107313.3.579.2 .594 1966 Unknown [id number] 2.16.840.1.634228.3.579.2 .594 1966 Unknown [id number] 2.16.840.1.446983.3.579.2 .594 1966 Unknown [id number] 2.16.840.1.406235.3.579.2 .594 1966 Unknown [id number] 2.16.840.1.442086.3.579.2 .594 1966 Unknown [id number] 2.16.840.1.821400.3.579.2 594 1966 Unknown [id number] 2.16.840.1.381447.3.579.2 .594 1966 Unknown [id number] 2.16840.1.186115.3.579.2 594 1966 Unknown [id number] 2.16840.1.282021.3.579.2 .594 1966 Unknown [id number] 2.840.1.736898.3.579.2 594 1966 Unknown [id number] 2.840.1.967162.3.579.2 .594 1966 Unknown [id number] 2.840.1.887306.3.579.2 594 1966 Unknown [id number] 2.840.1.243013.3.579.2 .594 1966 Unknown [id number] 2.840.1.938598.3.579.2 62 1966 Unknown [id number] .840.1.500714.3.579.2 .62 1966 Unknown [id number] .840.1.896124.3.579.2 62 1966 Unknown [id number] .840.1.619620.3.579.2 .62 1966 Unknown [id number] .16840.1.766731.3.579.2 62 1966 Unknown [id number] 2.16840.1.576395.3.579.2 .627 1966 Unknown [id number] .16840.1.994031.3.579.2 627 1966 Unknown [id number] .840.1.782019.3.579.2 .627 1966 Unknown [id number] .840.1.063943.3.579.2 .62 1966 Unknown [id number] .0.1.159582.3.579.2 .1966 Unknown [id number] .0.1.689640.3.579.2 .62 1966 Unknown [id number] .0.1.403540.3.579.2 1966 Unknown [id number] ..1.855911.3.579.2 627 Unknown [id number] Unknown [id number] Unknown [id number] .0.1.726309.3.579.2 .462 Unknown [id number] .1.691440.3.579.2 .462 Unknown [id number] .1.424679.3.579.2 .462 Unknown [id number] .1.327122.3.579.2 .462 Unknown [id number] .840.1.418979.3.579.2 .462 Unknown [id number] 09.06.830.1.489016.3.579.2 .462 Unknown [id number] .840.1.698125.3.579.2 .462 Unknown [id number] .840.1.400383.3.579.2 .462 Unknown [id number] .840.1.538398.3.579.2 .462 Unknown [id number] 2.16.840.1.526454.3.579.2 .462 Unknown [id number] 2.16.840.1.265730.3.579.2 .462 Unknown [id number] 2.16.840.1.837099.3.579.2 .462 Unknown [id number] 2.16.840.1.599011.3.579.2 .462 Unknown [id number] 2.16.840.1.865122.3.579.2 .462 Unknown [id number] 2.16.840.1.007079.3.579.2 .462 Unknown [id number] 2.16.840.1.358218.3.579.2 .462 Unknown [id number] 2.16.840.1.226097.3.579.2 .462 Unknown [id number] 2.16.840.1.372152.3.579.2 .462 Unknown [id number] 2.16.840.1.805229.3.579.2 .462 Unknown [id number] 2.16.840.1.803631.3.579.2 .462 Unknown [id number] 2.16.840.1.006507.3.579.2 .462 Unknown [id number] 2.16.840.1.734935.3.579.2 .462 Unknown [id number] 2.16.840.1.741362.3.579.2 .462 Unknown [id number] 2.16.840.1.240017.3.579.2 .462 Unknown [id number] 2.16.840.1.654453.3.579.2 .462 Unknown [id number] 2.16.840.1.769203.3.579.2 .462 Unknown [id number] 2.16.840.1.286515.3.579.2 .462 Unknown [id number] 2.16.840.1.080080.3.579.2 .462 Unknown [id number] 2.16.840.1.184054.3.579.2 .462 Unknown [id number] 2.16.840.1.596109.3.579.2 .462 Unknown [id number] 2.16.840.1.128833.3.579.2 .462 Unknown [id number] 2.16.840.1.700008.3.579.2 .462 Unknown [id number] 2.840.1.015027.3.579.2 .462 Unknown [id number] 2.840.1.253114.3.579.2 .462 Unknown [id number] 2.840.1.655653.3.579.2 .462 Unknown [id number] 2.840.1.045300.3.579.2 .462 Unknown [id number] 2.840.1.537505.3.579.2 .462 Unknown [id number] 2.840.1.886714.3.579.2 .462 Unknown [id number] 2.840.1.318797.3.579.2 .462 Unknown [id number] 2.840.1.493265.3.579.2 .462 Unknown [id number] 2.840.1.334740.3.579.2 .462 Unknown [id number] 2.840.1.042264.3.579.2 .462 Unknown [id number] 2.840.1.509125.3.579.2 .462 Unknown [id number] 2.840.1.696066.3.579.2 .462 Unknown [id number] 2.840.1.442284.3.579.2 .462 Unknown [id number] 2.840.1.614970.3.579.2 .462 Unknown [id number] 2.840.1.518745.3.579.2 .462 Unknown [id number] 2.840.1.538374.3.579.2 .462 Unknown [id number] 2.16840.1.042688.3.579.2 .462 Unknown [id number] 2.16840.1.176192.3.579.2 .462 Unknown [id number] 2.840.1.112398.3.579.2 .462 Social History Date Type Detail Facility Start: 05-29-2012 End: 01-11-2025 Tobacco smoking status NHIS Ex-smoker [facility] Start: 05-29-2000 End: 05-29-2010 History of tobacco use Current smoker [facility] Start: 05-29-2000 End: 05-29-2010 History of tobacco use Cigarette Smoker [facility] Start: 05-29-2012 End: 12-31-2024 Cigarettes smoked current (pack per day) - Reported 0.5 [facility] Start: 05-29-2012 End: 05-07-2024 Tobacco use and exposure Smokeless tobacco non-user [facility] Start: 10-06-2021 End: 07-02-2023 Alcohol intake Current drinker of alcohol (finding) [facility] Start: 02-24-2018 History SDOH Alcohol Comment occasionally [facility] Start: 02-08-2021 History SDOH Social Connections Phone 3 [facility] Start: 02-08-2021 History SDOH Social Connections Rastafarian 1 [facility] Start: 02-08-2021 History SDOH Social Connections Membership 2 [facility] Start: 02-08-2021 History SDOH Social Connections Living 7 [facility] Start: 02-08-2021 History SDOH Physica l Activity DPW 0 [facility] Start: 02-08-2021 History SDOH Financial 4 [facility] Start: 1965 Sex Assigned At Not on file C [facility] Start: 09-29-2021 End: 06-21-2022 Exposure to SARS-CoV-2 (event) Not sure [facility] Start: 02-09-2022 End: 04-18-2023 Tobacco smoking status VAIS Unknown if ever smoked [facility] Start: 09-26-2020 Cigarettes [facility] Start: 1965 Sex Assigned At Female W [facility] Start: 03-19-2022 Tobacco Comment one pack per w havasupai for 2 years [facility] Start: 09-12-2017 Occasional [facility] Start: 09-12-2017 None [facility] Start: 09-12-2017 With Family [facility] Start: 02-08-2021 End: 12-31-2024 Social connection and isolation panel [facility] Do you belong to any clubs or organizations such as confucianist groups, unions, fraternal or athletic groups, or school groups? No [facility] Are you now , , , , never or living with a partner? Never [facility] How hard is it for y ou to pay for the very basics like food, housing, medical care, and heating Not very hard [facility] Adult Depression Screening Assessment 0 [facility] Work Phone: (I/We) worried whephan er (my/our) food would run out before (I/we) got money to buy more. Never true [facility] In the past 12 month s, was there a time when you were not able to pay the mortgage or rent on time? Yes [facility] Start: 06-21-2023 End: 01-20-2025 Tobacco smoking status Never smoked tobacco (finding) [facility] Sex Assigned At [facility] Start: 05-07-2024 End: 12-31-2024 Alcoholic beverage intake Ex-drinker (finding) [facility] Start: 08-30-2005 End: 03-01-2020 Sex Female (finding) [facility] NEGATED: Highlighted row Not [facility] Medical Equipment Procedure Code Equipment Code Equipment Origin al Text Equipment Identifier Dates EGD, with monitored anesthesia care HEMOSPRAY FDA Start: 04-04-2024 EGD, with monitored anesthesia care Tissue marking ink [id number] FDA Start: 04-04-2024 EGD, with monitored anesthesia care Ligation clip, metallic ([id number] FDA Start: 04-04-2024 EGD, with monitored anesthesia [...] Start: 04-04-2024 Mirena Iud [id number] - [id number] Start: 01-06-2013 Comment on above: Description: Mirena [id number], [id number], [id number], [id number], [id number] Start: 07-01-2019 End: 01-19-2023 Comment on above: [...] Start: 02-18-2023 End: 09-23-2023 Blood Sugar Diagnostic (Accu-Chek Guide Test Strips) strip Start: 01-26-2025 Lancets (Easy Touch Lancets) 30 gauge misc Start: 09-24-2024 Blood Sugar Diagnostic (Onetouch Verio Test Strips) strip Start: 02-18-2023 End: 09-23-2023 Blood Sugar Diagnostic (Onetouch Verio Test Strips) strip Start: 09-23-2023 End: 01-25-2025 Blood Sugar Diagnostic (Onetouch Verio Test Strips) strip Start: 01-25-2025 End: 01-26-2025 Blood Sugar Diagnostic (True Metrix Glucose Test Strip) strip Start: 01-26-2025 End: 01-26-2025 Blood Sugar Diagnostic (Accu-Chek Guide Test Strips) strip Start: 01-26-2025 Lancets (Accu-Ch ek Softclix Lancets) misc Start: 02-04-2025 Lancets (Easy Touch Lancets) 30 gauge misc Start: 09-24-2024 Blood Sugar Diagnostic (Onetouch Verio Test Strips) strip Start: 02-18-2023 End: 09-23-2023 Blood Sugar Diagnostic (Onetouch Verio Test Strips) strip Start: 09-23-2023 End: 01-25-2025 Blood Sugar Diagnostic (Onetouch Verio Test Strips) strip Start: 01-25-2025 End: 01-26-2025 Blood Sugar Diagnostic (True Metrix Glucose Test Strip) strip Start: 01-26-2025 End: 01-26-2025 Blood Sugar Diagnostic (Accu-Chek Guide Test Strips) strip Start: 01-26-2025 Lancets (Accu-Ch ek Softclix Lancets) misc Start: 02-04-2025 Lancets (Easy Touch Lancets) 30 gauge misc Start: 09-24-2024 Blood Sugar Diagnostic (Onetouch Verio Test Strips) strip Start: 02-18-2023 End: 09-23-2023 Blood Sugar Diagnostic (Onetouch Verio Test Strips) strip Start: 09-23-2023 End: 01-25-2025 Blood Sugar Diagnostic (Onetouch Verio Test Strips) strip Start: 01-25-2025 End: 01-26-2025 Blood Sugar Diagnostic (True Metrix Glucose Test Strip) strip Start: 01-26-2025 End: 01-26-2025 Goals Date Patient Goal Desired Activity /State [...] goal Functional Status Date Assessment Result Facility 01-13-2025 Functional status Bedrest [facility] Work Phone: 03-30-2024 Functional Status Safety level maintained [facility] 02-25-2024 Functional Status Independent [facility] 02-25-2024 Functional Status ID band on, Allergy Band on, Call device within reach, Bed in low position, Wheels locked, Upper/Half-Length side-rails up, Safety level maintained [facility] 04-20-2023 Functional status Ambulates;Up ad radha [facility] Work Phone: 02-11-2022 Functional status Chair [facility] Work Phone: 02-21-2015 Are you deaf, or do you have serious difficulty hearing No 02/21/2015 4:24 PM Bg Blount LPN No [facility] 02-21-2015 Are you blind, or do you have serious difficulty seeing, even when wearing glasses No 02/21/2015 4:24 PM Bg Blount LPN No [facility] 02-21-2015 Do you have serious difficulty walking or climbing stairs No 02/21/2015 4:24 PM EDT Bg Johnston LPN No [facility] 02-21-2015 Do you have difficul ty dressing or bathing No 02/21/2015 4:24 PM EDT Bg Johnston LPN No [facility] 02-21-2015 Because of a physica l, mental, or emotional condition, do you have difficulty doing errands alone such as visiting a physician's office or shopping No 02/21/2015 4:24 PM EDT Bg Johnston LPN No [facility] Mental Status Date Assessment Result Facility 01-13-2025 Cognitive function Voice/Name [facility] Work Phone: 11-03-2024 Cognitive function Level Of Cons ciousness Awake;Alert;Appropriate;Fol lows Commands [facility] Work Phone: 07-29-2024 Cognitive function Level Of Cons ciousness Sedated [facility] Work Phone: 07-29-2024 Cognitive function Voice/Name [facility] Work Phone: 03-30-2024 Mental Status Oriented x 4 [facility] 02-25-2024 Mental Status Orientation Oriented x 4 [facility] 02-25-2024 Mental Status [facility] 04-20-2023 Cognitive function Voice/Name [facility] Work Phone: 01-20-2023 Cognitive function Level Of Cons ciousness Awake;Alert;Appropriate [facility] Work Phone: 01-07-2023 Cognitive function Level Of Cons ciousness Awake;Alert;Appropriate;Fol lows Commands [facility] Work Phone: 10-25-2022 Cognitive function Level Of Cons ciousness Awake;Alert;Appropriate;Fol lows Commands [facility] Work Phone: 09-21-2022 Cognitive function Level Of Cons ciousness Awake;Alert;Appropriate;Fol lows Commands [facility] Work Phone: 08-31-2022 Cognitive function Voice/Name [facility] Work Phone: 02-11-2022 Cognitive function Voice/Name [facility] Work Phone: 02-09-2022 Cognitive function Level Of Cons ciousness Awake;Drowsy [facility] Work Phone: 02-21-2015 Because of a physica l, mental, or emotional condition, do you have serious difficulty concentrating, remembering, or making decisions No 02/21/2015 4:24 PM EDT Bg Johnston LPN No [facility] Clinical Notes 10-12-2021 to 02-02-2025 Telephone Encounter - Supriya Stone RN - 02/02/2025 9:32 AM EDTTelephone Encounter - Supriya Stone RN - 02/02/2025 9:32 AM EDTTelephone Encounter - Supriya Stone RN - 01/29/2025 2:45 PM EDT Note Date & Type Note Facility 02-02-2025 Telephone encounter Note Call placed Back to Leroy to ensure that Leroy will be able to follow up with Gastroenterology as was discussed. Unable to leave a voicemail at this time. [facility] 02-02-2025 Miscellaneous Notes Call placed Back to Leroy to ensure that Leroy will be able to follow up with Gastroenterology as was discussed. Unable to leave a voicemail at this time. Called Leroy and informed her Dr. Berrios recommends GI. She does not need a referral she already has a comb capper. 01/27/2025 8:54 AM Situation: having a lot of acid reflux, pain in stomach every morning. She has pain in the morning but not sure what it is from. When she wakes up there is pain in her stomach. Having trouble eating. She will only have half of what she wanted. She is having burping and acid reflux. She is taking pantoprazole 40 mg taking this twice a day. She doesn know if there is another pill she can take to help with this? Famotidine was prescribed 10 mg for stomach- she was on antibiotics and she was sick in the hospital. She has been having this for around a month. She just started this medication- she takes Famotidine 10 mg twice a day. She does not have a refill on this. Background: she states that she was in the hospital for 4 days, had a high heart rate/UTI and dx with BILLY this is [facility]. Did not have a repeat colonoscopy as requested Assessment: Triage phone call Neuro assessment- Dizziness, double vision, headaches? - does have headaches - does not have high blood pressure Pulmonary assessment- Shortness of breath with activity level? Any Increased SOB? Any shortness of breath when laying flat? - wears oxygen - denies shortness of breath Cardiac assessment- Any heart palpitations? Any swelling to your lower extremities? Any high or low heart rate? How is your BP? Are you taking anything for your BP? - no history of afib or a flutter - swelling to right foot a lot- is not red or painful to touch GI assessment- Nausea/vomiting/diarrhea? How long have you been experiencing symptoms? Do you take anything for your bowels? Last Bowel Movement? - she has nausea - diarrhea- none - constipation? Yes, she says she has BM's regularly hard to pass stool - BM was yesterday; hard to pass - thinks she has hemorrhoids - Does it burn with urination? Any fevers or chills? What color is your urine? - none Skin- Any blisters or peeling to your hands or feet? Any rash? Any yellowing of skin or eyes? Any petechiae under your skin? - none Other- Any fever or chills? Any blood glucose issues? Any nose bleeding? Any gum bleeding? Any blood in urine or stools? - takes Trulicity Mouth- Any sores in your mouth? How long have they been there? Anything make them better or worse? - thinks this is related to stomach acid- on lip corner of lip Pain- What is your pain level 0-10 on the pain scale? Where is your pain located? How would you describe your pain? What are you taking for your pain? - cramping in stomach happens every morning - location of pain it is top of stomach/bottom of stomach Treatment? What treatment are you on? When was your last treatment? - none Recommendation: Rn let patient know that should her s/s worsen to call her PCP. --Sridevi Connors RN documented in this encounter [facility] 01-29-2025 Telephone encounter Note Called Leroy and informed her Dr. Berrios recommends GI. She does not need a referral she already has a comb capper. [facility] Telephone encounter Note 01/27/2025 8:54 AM Situation: having a lot of acid reflux, pain in stomach every morning. She has pain in the morning but not sure what it is from. When she wakes up there is pain in her stomach. Having trouble eating. She will only have half of what she wanted. She is having burping and acid reflux. She is taking pantoprazole 40 mg taking this twice a day. She doesn know if there is another pill she can take to help with this? Famotidine was prescribed 10 mg for stomach- she was on antibiotics and she was sick in the hospital. She has been having this for around a month. She just started this medication- she takes Famotidine 10 mg twice a day. She does not have a refill on this. Background: she states that she was in the hospital for 4 days, had a high heart rate/UTI and dx with COVID this is [facility]. Did not have a repeat colonoscopy as requested Assessment: Triage phone call Neuro assessment- Dizziness, double vision, headaches? - does have headaches - does not have high blood pressure Pulmonary assessment- Shortness of breath with activity level? Any Increased SOB? Any shortness of breath when laying flat? - wears oxygen - denies shortness of breath Cardiac assessment- Any heart palpitations? Any swelling to your lower extremities? Any high or low heart rate? How is your BP? Are you taking anything for your BP? - no history of afib or a flutter - swelling to right foot a lot- is not red or painful to touch GI assessment- Nausea/vomiting/diarrhea? How long have you been experiencing symptoms? Do you take anything for your bowels? Last Bowel Movement? - she has nausea - diarrhea- none - constipation? Yes, she says she has BM's regularly hard to pass stool - BM was yesterday; hard to pass - thinks she has hemorrhoids - Does it burn with urination? Any fevers or chills? What color is your urine? - none Skin- Any blisters or peeling to your hands or feet? Any rash? Any yellowing of skin or eyes? Any petechiae under your skin? - none Other- Any fever or chills? Any blood glucose issues? Any nose bleeding? Any gum bleeding? Any blood in urine or stools? - takes Trulicity Mouth- Any sores in your mouth? How long have they been there? Anything make them better or worse? - thinks this is related to stomach acid- on lip corner of lip Pain- What is your pain level 0-10 on the pain scale? Where is your pain located? How would you describe your pain? What are you taking for your pain? - cramping in stomach happens every morning - location of pain it is top of stomach/bottom of stomach Treatment? What treatment are you on? When was your last treatment? - none Recommendation: Rn let patient know that should her s/s worsen to call her PCP. --Sridevi Connors RN [facility] 01-21-2025 Note . MICRO - Microbiology PROCEDURE: Urine Culture [*1] SOURCE: Urine, Clean Catch BODY SITE: COLLECTED DATE/TIME: 01/20/2025 13:24 EDT RECEIVED DATE/TIME: 01/20/2025 15:48 EDT START DATE/TIME: 01/20/2025 15:48 EDT FREE TEXT SOURCE: FINAL REPORTS Final Report [] Verified Date/Time/Personnel: 01/21/2025 14:43 EDT 10,000 - 50,000 cfu/ml Mixed growth consistent with normal urogenital keiko. PRELIMINARY REPORTS Preliminary Report [] Verified Date/Time/Personnel: 01/20/2025 17:00 EDT Specimen received in lab. Performing Locations *1: This test was performed at: [facility], [address] [place] [address], [id number] , [facility] 01-13-2025 Discharge summary Note Date/Time January 13, 2025 2:30pm [facility] Medical Records Department [address] [place] [id number] Discharge Summary 01/13/25 1423 MR#: [id number] Acct: [id number] Name: LEROY MONTEJO Rep #:[id number] : 1965 59 From: Velasquez Vivas DO PCP: DARLING KWAN Status:ADM IN Location: [facility] [id number] Providers Date of Admission: 01/11/25 Primary Care Physician: DARLING KWAN Reason For Visit: UTI, LEUKOCYTOSIS, HYPERGLYCEMIA, ADR AND Diagnosis Discharge Diagnosis (1) Urinary tract infection: Status: Inactive Code(s): N39.0 - Urinary tract infection, site not specified Plan: on CTX. UCx showing boudreaux-sensitive E. coli. Will discharge with ciprofloxacin (2) Hyperglycemia due to type 2 diabetes mellitus: Status: Acute Code(s): E11.65 - Type 2 diabetes mellitus with hyperglycemia Qualifiers: Diabetes mellitus custodial insulin use: with custodial use Qualified Code(s): E11.65 - Type 2 diabetes mellitus with hyperglycemia; Z79.4 - half-way(current) use of insulin Plan: poorly controlled. Previous a1c 11.4. Recheck 12.2. On SSI. Resume U500 Is established with endocrinology and a1c went from 7.2 (04/2024) to 11.4. Patient had been missing doses. (3) Constipation: Status: Acute Code(s): K59.00 - Constipation, unspecified Qualifiers: Constipation type: unspecified constipation type Qualified Code(s): K59.00 - Constipation, unspecified Plan: Add dulcolax, Miralax. (4) Nausea & vomiting: Status: Acute Code(s): R11.2 - Nausea with vomiting, unspecified Plan: supportive mgmt. Plan Chronic conditions: * obesity class III: complicates care and recovery. * anemia: on ferrous sulfate. Heme positive stools. Did have colonoscopy on the 07/29: stool in the recto-sigmoid colon, simoid and descending colon, transverse colon and in the cecum. * depression: fluoxetine * hypothyroidism: levothyroxine * GERD: PPI, sucralfate * Neuroendocrine tumor of the stomach. Was referred to [facility] for further evaluation by [facility]. VTE prophylaxis: LMWH Disposition: to home. Medications at Discharge Home Medications blood-glucose sensor ([employer] G7 Sensor device) #3 ea 02/18/23 blood-glucose,geological e logger,cont (Dexcom G7 Word Processor Technician) #1 ea 02/18/23 acetaminophen 500 mg tablet 500 - 1,000 mg PO Q6H PRN fever or pain 04/18/23 blood sugar diagnostic ([employer] Verio test strips) #100 ea 09/23/23 levothyroxine 200 mcg tablet 200 mcg PO DAILY hypothyroidism #90 tabs 09/23/23 fluoxetine 40 mg capsule 40 mg PO DAILY depression 03/11/24 insulin regular hum U-500 conc 500 unit/mL(3 mL) subcut pen (Humulin R U-500 (Conc) Insulin Kwikpen) 100 unit (0.2 mL) subcut TID DM #18 mL 03/12/24 pantoprazole 40 mg tablet,delayed release 40 mg PO BID gerd 30 days #60 tabs 04/07/24 sucralfate 1 gram tablet 1 g PO 1HR_ACHS gerd 14 days #42 tabs 04/07/24 fenofibrate nanocrystallized 48 mg tablet 48 mg PO QHS 1 month #30 tabs 05/09/24 dulaglutide 4.5 mg/0.5 mL subcutaneous pen injector (Trulicity) 4.5 mg subcut SUdiabetes 07/28/24 lancets 30 gauge (Easy Touch Lancets) #100 ea 09/24/24 cholecalciferol (vitamin D3) 1,250 mcg (50,000 unit) capsule 1,250 mcg PO QWEEK supplement 09/30/24 ferrous sulfate 325 mg (65 mg iron) tablet 325 mg PO QODAY iron 09/30/24 gabapentin 300 mg capsule 300 mg PO TID pain 30 days #90 caps 09/30/24 oxycodone-acetaminophen 5 mg-325 mg tablet (Percocet) 1 tab PO Q6H PRN pain 3 days #12 tabs 09/30/24 albuterol sulfate 90 mcg/actuation aerosol inhaler 2 inh inhalation Q4-6H PRN shortness of breath or wheezing #8.5 grams 10/30/24 fluticasone 500 mcg-salmeterol 50 mcg/dose blistr powdr for inhalation (Advair Diskus) 1 inh inhalation Q12H astham #60 ea 10/30/24 benzonatate 200 mg capsule 200 mg PO TID PRN cough #20 caps 12/30/24 ciprofloxacin HCl 500 mg tablet 500 mg PO Q12H #8 tabs 01/13/25 Hospital Course Operations None Procedures None Summary of Care Provided Hospital Course: Patient presented with UTI and hyperglycemia. Mention patient was found to haveE. coli that was pansensitive. Patient was on ceftriaxone while she was here. She did have a day where she had intractable nausea and vomiting but since improved. Patient will be discharged home in stable condition. Weight / BMI Weight Weight: 111.2 kg Body Mass Index (BMI) 46.3 ABG / Lab / Microbiology Data 01/12/25 05:40 01/12/25 05:40 Laboratory: Laboratory Results - last 24 hr 01/12/25 16:33: POC Glucose 119 H 01/12/25 21:50: POC Glucose 185 H 01/13/25 06:41: POC Glucose 93 01/13/25 11:08: POC Glucose 147 H Microbiology: Microbiology 01/10/25 22:30 Urine, Clean Catch Urine Culture - Preliminary Escherichia coli 01/11/25 10:30 Stool Stool Occult Blood (SHAHEEN) - Final Occult Blood Positive D/C Instructions Discharge Diet: 2000 Calorie Control Diet DC O2, CPAP, BIPAP Needs Home O2 Discharge instructions: Yes Type of respiratory needs?: Oxygen Oxygen frequency: Continuous Continuous oxygen liters per minute: 2 DC home with Oxygen: Yes Home O2 MD Review: I have reviewed the oxygen testing, and the patient qualifies for home oxygen equipment and portability. The patient is mobile in the home and the community. Meaningful Use Info Meaningful Use Meaningful Use Diagnoses (Choose all that apply): None applicable Ischemic Stroke Statin Dosing Therapy Reference: STATIN DOSE THERAPY REFERENCE: * Patients > 75 years receive moderate or high dose statin therapy. * Patients 75 years or YOUNGER should receive HIGH intensity statin dose unless contraindicated. You will be required to document reason for non-treatment if statin daily dose does not meet guidelines. HIGH DOSE STATIN THERAPY DAILY Atorvastatin > than or = to 40 mg Rosuvastatin > than or = to 20 mg Amlodipine + Atorvastatin > than or = to 2.5/40 mg Ezetimibe + Simvastatin 10/80 mg Simvastatin 80mg Discharge Plan Admission Admit Date/Time: 01/11/25 01:04 Primary Reason for Your Visit: UTI. Attending Provider: Velasquez Vivas Primary Care Provider: VERO ORTEZ Consulting Providers: Amadou Arthur Discharge Orders/Prescriptions Prescriptions: New ciprofloxacin HCl 500 mg tablet 500 mg PO Q12H Qty: 8 0RF Continued (DME) Dexcom G7 Sensor Device See Rx Instructions .Route Qty: 3 5RF Rx Instructions: 1 sensor q 10 days (DME) Dexcom G7 Word Processor Technician Misc See Rx Instructions .Route Qty: 1 0RF Rx Instructions: As directed (DME) OneTouch Verio test strips Strip See Rx Instructions .Route Qty: 100 5RF Rx Instructions: 4x/day levothyroxine 200 mcg tablet 200 mcg PO DAILY Qty: 90 1RF Patient Comments: take two pills on Saturday Humulin R U-500 (Conc) Kwikpen 500 unit/mL (3 mL) insulin pen 100 unit subcut TID Qty: 18 5RF Rx Instructions: Increase by 10u/meal if glucose >[address] Cervantes's office, hold if glucose <100. fluoxetine 40 mg capsule 40 mg PO DAILY albuterol sulfate 90 mcg/actuation HFA aerosol inhaler 2 inh inhalation Q4-6H PRN (Reason: shortness of breath or wheezing) Qty: 8.50RF fluticasone propion-salmeterol [Advair Diskus] 500-50 mcg/dose blister with device 1 inh inhalation Q12H Qty: 60 5RF (DME) lancets [Easy Touch Lancets] 30 gauge misc See Rx Instructions .Route Qty: 100 5RF Rx Instructions: TID benzonatate 200 mg capsule 200 mg PO TID PRN (Reason: cough) Qty: 20 0RF acetaminophen 500 mg tablet 500 - 1,000 mg PO Q6H PRN (Reason: fever or pain) Trulicity 4.5 mg/0.5 mL pen injector 4.5 mg subcut NARVAEZ ferrous sulfate 325 mg (65 mg iron) tablet 325 mg PO QODAY cholecalciferol (vitamin D3) 1,250 mcg (50,000 unit) capsule 1,250 mcg PO QWEEK oxycodone-acetaminophen [Percocet] 5-325 mg tablet 1 tab PO Q6H PRN (Reason: pain) 3 Days Qty: 12 0RF gabapentin 300 mg capsule 300 mg PO TID 30 Days Qty: 90 0RF sucralfate 1 gram Tablet 1 g PO 1HR_ACHS 14 Days Qty: 42 0RF pantoprazole 40 mg Tablet,Delayed Release (Dr/Ec) 40 mg PO BID 30 Days Qty: 60 2RF fenofibrate nanocrystallized 48 mg tablet 48 mg PO QHS 30 Days Qty: 30 5RF Referrals / Follow Up: [facility] [Provider Group] - 02/02/25 12:45 pm [facility] [Provider Group] - 02/04/25 11:15 am VERO ORTEZ CRNP [Primary Care Provider] - Within 2 Weeks Disposition Disposition (needs filled in before D/C Order can be placed): Home, Self Care Charges/Coding Visit Charges Inpatient E&M: 95255 Disch Hosp >30min 01/13/25 1430 <Electronically signed by Velasquez Vivas DO> Cosigner Signature (if applicable): CC: Dr. Velasquez Vivas DO; DARLING KWAN~ Signed [facility] Work Phone: 1(554) 212-696906-25-2025 Progress note Author Velasquez Vivas [facility] Note Date/Time January 13, 2025 2:23 pm [facility] Medical Records Department [address] [place] [address] Progress Note - Hospitalist 01/13/25 0736 MR#: [id number] Acct: [id number] Name: LEROY MONTEJO Rep #:[id number] : 1965 59 From: Velasquez Vivas DO PCP: DARLING KWAN Status:ADM IN Location: [facility] [id number] Reason for Visit Reason for Visit: Diagnoses Bandemia (01/11/25) Type 2 diabetes mellitus with hyperglycemia (01/11/25) Morbid (severe) obesity due to excess calories (01/11/25) Constipation, unspecified (01/11/25) Acute cystitis without hematuria (01/11/25) Urinary tract infection, site not specified (01/11/25) Nausea with vomiting, unspecified (01/11/25) Adverse effect of unspecified drugs, medicaments and biological substances, initial encounter (01/11/25) Body mass index [BMI] 45.0-49.9, adult (01/11/25) half-way (current) use of insulin (01/11/25) Personal history of COVID-19 (01/11/25) Subjective Subjective Feeling well. Anxious to go home. Objective Data Objective Data Vital Signs: Vital Signs Temp Pulse Resp BP Pulse Ox O2 Del Method O2 Flow Rate 36.6 C 79 18 122/74 H 98 Nasal Cannula 2 01/13/25 03:59 01/13/25 06:42 01/13/25 06:42 01/13/25 03:59 01/13/25 06:42 01/13/25 06:42 01/13/25 06:42 Oxygen Flow Rate (L/min) 2 Oxygen Delivery Method Nasal Cannula Weight: 111.2 kg Body Mass Index (BMI) 46.3 Intake & Output: Intake and Output for Last 24 Hours 01/11/25 01/12/25 01/13/25 23:59 23:59 23:59 Intake Total 2049 50 / 50 Output Total 200 / 200 Balance 1850 / 1850 2009 50 / 50 Lab / Micro Data 01/12/25 05:40 01/12/25 05:40 Labs: Laboratory Results - last 24 hr 01/12/25 11:16: POC Glucose 299 H 01/12/25 16:33: POC Glucose 119 H 01/12/25 21:50: POC Glucose 185 H 01/13/25 06:41: POC Glucose 93 Micro: Microbiology 01/10/25 22:30 Urine, Clean Catch Urine Culture - Preliminary GNR lactose body trimmer upholsterer 01/11/25 10:30 Stool Stool Occult Blood (SHAHEEN) - Final Occult Blood Positive Physical Exam Const alert and no apparent distress HEENT head/scalp atraumatic and moist oral mucous membranes Resp normal respiratory effort, no retractions, no use of accessory muscles and clear to auscultation bilaterally Cardio regular rate, regular rhythm, S1 normal heart sound and S2 normal heart sound GI normal to inspection, nondistended, normoactive bowel sounds, soft to palpation, non-tender and non-distended Extremity normal to inspection and full ROM Neuro Sensorium / Orientation: awake and alert Assessment & Plan Assessment/Plan (1) Urinary tract infection: PLAN: on CTX. UCx showing boudreaux-sensitive E. coli. Will discharge with ciprofloxacin (2) Hyperglycemia due to type 2 diabetes mellitus: QUALIFIERS: Diabetes mellitus middle or intermediate school principal insulin use: with custodial use Qualified Code(s): E11.65 - Type 2 diabetes mellitus with hyperglycemia; Z79.4 - 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 PLAN: poorly controlled. Previous a1c 11.4. Recheck 12.2. On SSI. Resume U500 Is established with endocrinology and a1c went from 7.2 (04/2024) to 11.4. Patient had been missing doses. (3) Constipation: QUALIFIERS: Constipation type: unspecified constipation type Qualified Code(s): K59.00 - Constipation, unspecified PLAN: Add dulcolax, Miralax. (4) Nausea & vomiting: PLAN: supportive mgmt. PLAN: Plan Chronic conditions: * obesity class III: complicates care and recovery. * anemia: on ferrous sulfate. Heme positive stools. Did have colonoscopy on the 07/29: stool in the recto-sigmoid colon, simoid and descending colon, transverse colon and in the cecum. * depression: fluoxetine * hypothyroidism: levothyroxine * GERD: PPI, sucralfate * Neuroendocrine tumor of the stomach. Was referred to [facility] for further evaluation by [facility]. VTE prophylaxis: LMWH Disposition: to home. 01/13/251422 <Electronically signed by Velasquez Vivas DO> Cosigner Signature (if applicable): CC: ~ Signed [facility] Work Phone: 1(816) 188-119206-25-2025 Discharge summary [facility] Medical Records Department [facility] [place] [address] Discharge Summary 01/13/25 1423 MR#: [id number] Acct: [id number] Name: LEROY MONTEJO Rep #:[id number] : 1965 59 From: Velasquez Vivas DO PCP: DARLING KWAN Status:ADM IN [id number] Prov[facility] Date of Admission: 01/11/25 Primary Care Physician: DARLING KWAN Reason For Visit: UTI, LEUKOCYTOSIS, HYPERGLYCEMIA, ADR AND Diagnosis Discharge Diagnosis (1) Urinary tract infection: Status: Inactive Code(s): N39.0 - Urinary tract infection, site not specified Plan: on CTX. UCx showing boudreaux-sensitive E. coli. Will discharge with ciprofloxacin (2) Hyperglycemia due to type 2 diabetes mellitus: Status: Acute Code(s): E11.65 - Type 2 diabetes mellitus with hyperglycemia Qualifiers: Diabetes mellitus middle or intermediate school principal insulin use: with middle or intermediate school principal use Qualified Code(s): E11.65 - Type 2 diabetes mellitus with hyperglycemia; Z79.4 - lobsterman(current) use of insulin Plan: poorly controlled. Previous a1c 11.4. Recheck 12.2. On SSI. Resume U500 Is established with endocrinology and a1c went from 7.2 (04/2024) to 11.4. Patient had been missingdoses. (3) Constipation: Status: Acute Code(s): K59.00 - Constipation, unspecified Qualifiers: Constipation type: unspecified constipation type Qualified Code(s): K59.00 - Constipation, unspecified Plan: Add dulcolax, Miralax. (4) Nausea & vomiting: Status: Acute Code(s): R11.2 - Nausea with vomiting, unspecified Plan: supportive mgmt. Plan Chronic conditions: * obesity class III: complicates care and recovery. * anemia: on ferrous sulfate. Heme positive stools. Did have colonoscopy on the 07/29: stool in the recto-sigmoid colon, simoid and descending colon, transverse colon and in the cecum. * depression: fluoxetine * hypothyroidism: levothyroxine * GERD: PPI, sucralfate * Neuroendocrine tumor of the stomach. Was referred to [facility] for further evaluation by [facility]. VTE prophylaxis: LMWH Disposition: to home. Medications at Discharge Home Medications blood-glucose sensor (Dexcom G7 Sensor device) #3 ea 02/18/23 blood-glucose,geological e logger,cont (Dexcom G7 Word Processor Technician) #1 ea 02/18/23 acetaminophen 500 mg tablet 500 - 1,000 mg PO Q6H PRN fever or pain 04/18/23 blood sugar diagnostic ([employer] Verio test strips) #100 ea 09/23/23 levothyroxine 200 mcg tablet 200 mcg PO DAILY hypothyroidism #90 tabs 09/23/23 fluoxetine 40 mg capsule 40 mg PO DAILY depression 03/11/24 insulin regular hum U-500 conc 500 unit/mL(3 mL) subcut pen (Humulin R U-500 (Conc) Insulin Kwikpen) 100 unit (0.2 mL) subcut TID DM #18 mL 03/12/24 pantoprazole 40 mg tablet,delayed release 40 mg PO BID gerd 30 days #60 tabs 04/07/24 sucralfate 1 gram tablet 1 g PO 1HR_ACHS gerd 14 days #42 tabs 04/07/24 fenofibrate nanocrystallized 48 mg tablet 48 mg PO QHS 1 month #30 tabs 05/09/24 dulaglutide 4.5 mg/0.5 mL subcutaneous pen injector (Trulicity) 4.5 mg subcut SUdiabetes 07/28/24 lancets 30 gauge (Easy Touch Lancets) #100 ea 09/24/24 cholecalciferol (vitamin D3) 1,250 mcg (50,000 unit) capsule 1,250 mcg PO QWEEK supplement 09/30/24 ferrous sulfate 325 mg (65 mg iron) tablet 325 mg PO QODAY iron 09/30/24 gabapentin 300 mg capsule 300 mg PO TID pain 30 days #90 caps 09/30/24 oxycodone-acetaminophen 5 mg-325 mg tablet (Percocet) 1 tab PO Q6H PRN pain 3 days #12 tabs 09/30/24 albuterol sulfate 90 mcg/actuation aerosol inhaler 2 inh inhalation Q4-6H PRN shortness of breath or wheezing #8.5 grams 10/30/24 fluticasone 500 mcg-salmeterol 50 mcg/dose blistr powdr for inhalation (Advair Diskus) 1 inh inhalation Q12H astham #60 ea 10/30/24 benzonatate 200 mg capsule 200 mg PO TID PRN cough #20 caps 12/30/24 ciprofloxacin HCl 500 mg tablet 500 mg PO Q12H #8 tabs 01/13/25 Hospital Course Operations None Procedures None Summary of Care Provided Hospital Course: Patient presented with UTI and hyperglycemia. Mention patient was found to haveE. coli that was pansensitive. Patient was on ceftriaxone while she was here. She did have a day where she had intractable nausea and vomiting but since improved. Patient will be discharged home in stable condition. Weight / BMI Weight Weight: 111.2 kg Body Mass Index (BMI) 46.3 ABG / Lab / Microbiology Data 01/12/25 05:40 01/12/25 05:40 Laboratory: Laboratory Results - last 24 hr 01/12/25 16:33: POC Glucose 119 H 01/12/25 21:50: POC Glucose 185 H 01/13/25 06:41: POC Glucose 93 01/13/25 11:08: POC Glucose 147 H Microbiology: Microbiology 01/10/25 22:30 Urine, Clean Catch Urine Culture - Preliminary Escherichia coli 01/11/25 10:30 Stool Stool Occult Blood (SHAHEEN) - Final Occult Blood Positive D/C Instructions Discharge Diet: 2000 Calorie Control Diet DC O2, CPAP, BIPAP Needs Home O2 Discharge instructions: Yes Type of respiratory needs?: Oxygen Oxygen frequency: ContinuousContinuous oxygen liters per minute: 2 DC home with Oxygen: Yes Home O2 MD Review: I have reviewed the oxygen testing, and the patient qualifies for home oxygen equipment and portability. The patient is mobile in the home and the community. Meaningful Use Info Meaningful Use Meaningful Use Diagnoses (Choose all that apply): None applicable Ischemic Stroke Statin Dosing Therapy Reference: STATIN DOSE THERAPY REFERENCE: * Patients > 75 years receive moderate or high dose statin therapy. * Patients 75 years or YOUNGER should receive HIGH intensity statin dose unless contraindicated. You will be required to document reason for non-treatment if statin daily dose does not meet guidelines. HIGH DOSE STATIN THERAPY DAILY Atorvastatin > than or = to 40 mg Rosuvastatin > than or = to 20 mg Amlodipine + Atorvastatin > than or = to 2.5/40 mg Ezetimibe + Simvastatin 10/80 mg Simvastatin 80mg Discharge Plan Admission Admit Date/Time: 01/11/25 01:04 Primary Reason for Your Visit: UTI. Attending Provider: Velasquez Vivas Primary Care Provider: MAST,VERO Consulting Providers: Amadou Arthur Discharge Orders/Prescriptions Prescriptions: New ciprofloxacin HCl 500 mg tablet 500 mg PO Q12H Qty: 8 0RF Continued (DME) Dexcom G7 Sensor Device See Rx Instructions .Route Qty: 3 5RF Rx Instructions: 1 sensor q 10 days (DME) Dexcom G7 Word Processor Technician Misc See Rx Instructions .Route Qty: 1 0RF Rx Instructions: As directed (DME) OneTouch Verio test strips Strip See Rx Instructions .Route Qty: 100 5RF Rx Instructions: 4x/day levothyroxine 200 mcg tablet 200 mcg PO DAILY Qty: 90 1RF Patient Comments: take two pills on Saturday Humulin R U-500 (Conc) Kwikpen 500 unit/mL (3 mL) insulin pen 100 unit subcut TID Qty: 18 5RF Rx Instructions: Increase by 10u/meal if glucose >[address] Cervantes's office, hold if glucose <100. fluoxetine 40 mg capsule 40 mg PO DAILY albuterol sulfate 90 mcg/actuation HFA aerosol inhaler 2 inh inhalation Q4-6H PRN (Reason: shortness of breath or wheezing) Qty: 8.50RF fluticasone propion-salmeterol [Advair Diskus] 500-50 mcg/dose blister with device 1 inh inhalation Q12H Qty: 60 5RF (DME) lancets [Easy Touch Lancets] 30 gauge misc See Rx Instructions .Route Qty: 100 5RF Rx Instructions: TID benzonatate 200 mg capsule 200 mg PO TID PRN (Reason: cough) Qty: 20 0RF acetaminophen 500 mg tablet 500 - 1,000 mg PO Q6H PRN (Reason: fever or pain) Trulicity 4.5 mg/0.5 mL pen injector 4.5 mg subcut NARVAEZ ferrous sulfate 325 mg (65 mg iron) tablet 325 mg PO QODAY cholecalciferol (vitamin D3) 1,250 mcg (50,000 unit) capsule 1,250 mcg PO QWEEK oxycodone-acetaminophen [Percocet] 5-325 mg tablet 1 tab PO Q6H PRN (Reason: pain) 3 Days Qty: 12 0RF gabapentin 300 mg capsule 300 mg PO TID 30 Days Qty: 90 0RF sucralfate 1 gram Tablet 1 g PO 1HR_ACHS 14 Days Qty: 42 0RF pantoprazole 40 mg Tablet,Delayed Release (Dr/Ec) 40 mg PO BID 30 Days Qty: 60 2RF fenofibrate nanocrystallized 48 mg tablet 48 mg PO QHS 30 Days Qty: 30 5RF Referrals / Follow Up: [facility] [Provider Group] - 02/02/25 12:45 pm [facility] [Provider Group] - 02/04/25 11:15 am VERO ORTEZ CRNP [Primary Care Provider] - Within 2 Weeks Disposition Disposition (needs filled in before D/C Order can be placed): Home, Self Care Charges/Coding Visit Charges Inpatient E&M: 52474 Disch Hosp >30min 01/13/25 1430 Cosigner Signature (if applicable): CC: Dr. Velasquez Vivas DO; DARLING KWAN~ Signed [facility]06-25-2025 [facility]06-25-2025 Progress note [facility] Medical Records Department [address] [place] [address] Progress Note - Hospitalist 01/13/25 0736 MR#: [id number] Acct: [id number] Name: LEROY MONTEJO Rep #:[id number] : 1965 59 From: Velasquez Vivas DO PCP: DARLING KWAN Status:ADM IN [id number] Reason for Visit Reason for Visit: Diagnoses Bandemia (01/11/25) Type 2 diabetes mellitus with hyperglycemia (01/11/25) Morbid (severe) obesity due to excess calories (01/11/25) Constipation, unspecified (01/11/25) Acute cystitis without hematuria (01/11/25) Urinary tract infection, site not specified (01/11/25) Nausea with vomiting, unspecified (01/11/25) Adverse effect of unspecified drugs, medicaments and biological substances, initial encounter (01/11/25) Body mass index [BMI] 45.0-49.9, adult (01/11/25) half-way (current) use of insulin (01/11/25) Personal history of COVID-19 (01/11/25) Subjective Subjective Feeling well. Anxious to go home. Objective Data Objective Data Vital Signs: Vital Signs Temp Pulse Resp BP Pulse Ox O2 Del Method O2 Flow Rate 36.6 C 79 18 122/74 H 98 Nasal Cannula 2 01/13/25 03:59 01/13/25 06:42 01/13/25 06:42 01/13/25 03:59 01/13/25 06:42 01/13/25 06:42 01/13/25 06:42 Oxygen Flow Rate (L/min) 2 Oxygen Delivery Method Nasal Cannula Weight: 111.2 kg Body Mass Index (BMI) 46.3 Intake & Output: Intake and Output for Last 24 Hours 01/11/25 01/12/25 01/13/25 23:59 23:59 23:59 Intake Total 2049 50 / 50 Output Total 200 / 200 Balance 1849 50 50 Lab / Micro Data 01/12/25 05:40 01/12/25 05:40 Labs: Laboratory Results - last 24 hr 01/12/25 11:16: POC Glucose 299 H 01/12/25 16:33: POC Glucose 119 H 01/12/25 21:50: POC Glucose 185 H 01/13/25 06:41: POC Glucose 93 Micro: Microbiology 01/10/25 22:30 Urine, Clean Catch Urine Culture - Preliminary GNR lactose body trimmer upholsterer 01/11/25 10:30 Stool Stool Occult Blood (SHAHEEN) - Final Occult Blood Positive Physical Exam Const alert and no apparent distress HEENT head/scalp atraumatic and moist oral mucous membranes Resp normal respiratory effort, no retractions, no use of accessory muscles and clear to auscultation bilaterally Cardio regular rate, regular rhythm, S1 normal heart sound and S2 normal heart sound GI normal to inspection, nondistended, normoactive bowel sounds, soft to palpation, non-tender and non-distended Extremity normal to inspection and full ROM Neuro Sensorium / Orientation: awake and alert Assessment & Plan Assessment/Plan (1) Urinary tract infection: PLAN: on CTX. UCx showing boudreaux-sensitive E. coli. Will discharge with ciprofloxacin (2) Hyperglycemia due to type 2 diabetes mellitus: QUALIFIERS: Diabetes mellitus middle or intermediate school principal insulin use: with custodial use Qualified Code(s): E11.65 -Type 2 diabetes mellitus with hyperglycemia; Z79.4 - 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 PLAN: poorly controlled. Previous a1c 11.4. Recheck 12.2. On SSI. Resume U500 Is established with endocrinology and a1c went from 7.2 (04/2024) to 11.4. Patient had been missingdoses. (3) Constipation: QUALIFIERS: Constipation type: unspecified constipation type Qualified Code(s): K59.00 - Constipation, unspecified PLAN: Add dulcolax, Miralax. (4) Nausea & vomiting: PLAN: supportive mgmt. PLAN: Plan Chronic conditions: * obesity class III: complicates care and recovery. * anemia: on ferrous sulfate. Heme positive stools. Did have colonoscopy on the 07/29: stool in the recto-sigmoid colon, simoid and descending colon, transverse colon and in the cecum. * depression: fluoxetine * hypothyroidism: levothyroxine * GERD: PPI, sucralfate * Neuroendocrine tumor of the stomach. Was referred to [facility] for further evaluation by [facility]. VTE prophylaxis: LMWH Disposition: to home. 01/13/25 1423 Cosigner Signature (if applicable): CC: ~ Signed [facility]06-24-2025 Progress note Author Velasquez Vivas [facility] Note Date/Time January 12, 2025 3:04 pm [facility] Medical Records Department [address] [place] [address] Progress Note - Hospitalist 01/12/25 0737 MR#: [id number] Acct: [id number] Name: LEROY MONTEJO Rep #:[id number] : 1965 59 From: Velasquez Vivas DO PCP: DARLING KWAN Status:ADM IN Location: [facility] [id number] Reason for Visit Reason for Visit: Diagnoses Bandemia (01/11/25) Type 2 diabetes mellitus with hyperglycemia (01/11/25) Morbid (severe) obesity due to excess calories (01/11/25) Constipation, unspecified (01/11/25) Acute cystitis without hematuria (01/11/25) Urinary tract infection, site not specified (01/11/25) Nausea with vomiting, unspecified (01/11/25) Adverse effect of unspecified drugs, medicaments and biological substances, initial encounter (01/11/25) Body mass index [BMI] 45.0-49.9, adult (01/11/25) 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 (01/11/25) Personal history of COVID-19 (01/11/25) Subjective Subjective Feeling much better. Objective Data Objective Data Vital Signs: Vital Signs Temp Pulse Resp BP Pulse Ox O2 Del Method O2 Flow Rate 36.4 C L 93 20 H 118/49 L 99 Nasal Cannula 3 01/12/25 02:35 01/12/25 02:35 01/12/25 02:35 01/12/25 02:35 01/12/25 02:35 01/12/25 02:35 01/12/25 02:35 Oxygen Flow Rate (L/min) 3 Oxygen Delivery Method Nasal Cannula Weight: 112.3 kg Body Mass Index (BMI) 46.7 Intake & Output: Intake and Output for Last 24 Hours 01/10/25 01/11/25 01/12/25 23:59 23:59 23:59 Intake Total 2050 / 2050 1050 / 1050 Output Total 200 / 200 Balance 1850 / 1850 1050 / 1050 Lab / Micro Data 01/12/25 05:40 01/12/25 05:40 Labs: Laboratory Results - last 24 hr 01/11/25 08:20: Hemoglobin A1c 12.2 H 01/11/25 11:16: POC Glucose 363 H 01/11/25 13:58: POC Glucose 347 H 01/11/25 16:29: POC Glucose 287 H 01/11/25 22:55: POC Glucose 231 H 01/12/25 05:40: WBC 13.7 H, RBC 4.07 L, Hgb 10.4 L, Hct 33.4 L, MCV 82.1, MCH 25.6 L, MCHC 31.1 L, RDW Std Deviation 47.1 H, RDW Coeff of [place] 15.8 H, Plt Count 147 L, MPV 10.4, Immature Gran % (Auto) 1.500 H, Neut % (Auto) 74.9 H, Lymph % (Auto) 14.4 L, [place] % (Auto) 7.5, Eos % (Auto) 1.5, Baso % (Auto) 0.2, Absolute Neuts (auto) 10.2 H, Absolute Lymphs (auto) 1.96, Nucleated RBC % 0, Sodium 138, Potassium 4.5, Chloride 105, Carbon Dioxide 24.5, Anion Gap 8, BUN 20 H, Creatinine 0.81, Estim Creat Clear Calc 87.96, Est GFR (MDRD) Non-Af 84, BUN/Creatinine Ratio 24.2 H, Glucose 134 H, Calcium 8.9 01/12/25 07:01: POC Glucose 126 H Micro: Microbiology 01/11/25 10:30 Stool Stool Occult Blood (SHAHEEN) - Final Occult Blood Positive Physical Exam Const alert and no apparent distress HEENT head/scalp atraumatic and moist oral mucous membranes Resp normal respiratory effort, no retractions, no use of accessory muscles and clear to auscultation bilaterally Cardio regular rate, regular rhythm, S1 normal heart sound and S2 normal heart sound GI normal to inspection, nondistended, normoactive bowel sounds, soft to palpation and non-tender Extremity normal to inspection and full ROM Neuro Sensorium / Orientation: awake and alert Psych affect normal Assessment & Plan Assessment/Plan (1) Urinary tract infection: PLAN: on CTX. Follow up final culture results, thus far showing GNR. (2) Hyperglycemia due to type 2 diabetes mellitus: QUALIFIERS: Diabetes mellitus custodial insulin use: with custodial use Qualified Code(s): E11.65 - Type 2 diabetes mellitus with hyperglycemia; Z79.4 - 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 PLAN: poorly controlled. Previous a1c 11.4. Recheck 12.2. On SSI. Resume U500 Is established with endocrinology and a1c went from 7.2 (04/2024) to 11.4. Patient had been missing doses. (3) Constipation: QUALIFIERS: Constipation type: unspecified constipation type Qualified Code(s): K59.00 - Constipation, unspecified PLAN: Add dulcolax, Miralax. (4) Nausea & vomiting: PLAN: supportive mgmt. PLAN: Plan Chronic conditions: * obesity class III: complicates care and recovery. * anemia: on ferrous sulfate. Heme positive stools. Did have colonoscopy on the 07/29: stool in the recto-sigmoid colon, simoid and descending colon, transverse colon and in the cecum. * depression: fluoxetine * hypothyroidism: levothyroxine * GERD: PPI, sucralfate * Neuroendocrine tumor of the stomach. Was referred to [facility] for further evaluation by [facility]. VTE prophylaxis: LMWH Disposition: pending final culture results. Charges/Coding Visit Charges Inpatient E&M: 72615 Subs Hosp L2 01/12/25 1504 <Electronically signed by Velasquez Vivas DO> Cosigner Signature (if applicable): CC: ~ Signed [facility] Work Phone: 1(518) 718-267906-24-2025 Progress note [facility] Medical Records Department [address] [place] [address] Progress Note - Hospitalist 01/12/25 0737 MR#: [id number] Acct: [id number] Name: LEROY MONTEJO Rep #:[id number] : 1965 59 From: Velasquez Vivas DO PCP: DARLING KWAN Status:ADM IN [id number] Reason for Visit Reason for Visit: Diagnoses Bandemia (01/11/25) Type 2 diabetes mellitus with hyperglycemia (01/11/25) Morbid (severe) obesity due to excess calories (01/11/25) Constipation, unspecified (01/11/25) Acute cystitis without hematuria (01/11/25) Urinary tract infection, site not specified (01/11/25) Nausea with vomiting, unspecified (01/11/25) Adverse effect of unspecified drugs, medicaments and biological substances, initial encounter (01/11/25) Body mass index [BMI] 45.0-49.9, adult (01/11/25) 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 (01/11/25) Personal history of COVID-19 (01/11/25) Subjective Subjective Feeling much better. Objective Data Objective Data Vital Signs: Vital Signs Temp Pulse Resp BP Pulse Ox O2 Del Method O2 Flow Rate 36.4 C L 93 20 H 118/49 L 99 Nasal Cannula 3 01/12/25 02:35 01/12/25 02:35 01/12/25 02:35 01/12/25 02:35 01/12/25 02:35 01/12/25 02:35 01/12/25 02:35 Oxygen Flow Rate (L/min) 3 Oxygen Delivery Method Nasal Cannula Weight: 112.3 kg Body Mass Index (BMI) 46.7 Intake & Output: Intake and Output for Last 24 Hours 01/10/25 01/11/25 01/12/25 23:59 23:59 23:59 Intake Total 2049 1050 / 1050 Output Total 200 / 200 Balance 1850 / 1850 1050 / 1050 Lab / Micro Data 01/12/25 05:40 01/12/25 05:40 Labs: Laboratory Results - last 24 hr 01/11/25 08:20: Hemoglobin A1c 12.2 H 01/11/25 11:16: POC Glucose 363 H 01/11/25 13:58: POC Glucose 347 H 01/11/25 16:29: POC Glucose 287 H 01/11/25 22:55: POC Glucose 231 H 01/12/25 05:40: WBC 13.7 H, RBC 4.07 L, Hgb 10.4 L, Hct 33.4 L, MCV 82.1, MCH 25.6 L, MCHC 31.1 L, RDW Std Deviation 47.1 H, RDW Coeff of [place] 15.8 H, Plt Count 147 L, MPV 10.4, Immature Gran % (Auto)1.500 H, Neut % (Auto) 74.9 H, Lymph % (Auto) 14.4 L, [place] % (Auto) 7.5, Eos % (Auto) 1.5, Baso % (Auto) 0.2, Absolute Neuts (auto) 10.2 H, Absolute Lymphs (auto) 1.96, Nucleated RBC % 0, Sodium 138,Potassium 4.5, Chloride 105, Carbon Dioxide 24.5, Anion Gap 8, BUN 20 H, Creatinine 0.81, Estim Creat Clear Calc 87.96, Est GFR (MDRD) Non-Af 84, BUN/Creatinine Ratio 24.2 H, Glucose 134 H, Calcium 8.9 01/12/25 07:01: POC Glucose 126 H Micro: Microbiology 01/11/25 10:30 Stool Stool Occult Blood (SHAHEEN) - Final Occult Blood Positive Physical Exam Const alert and no apparent distress HEENT head/scalp atraumatic and moist oral mucous membranes Resp normal respiratory effort, no retractions, no use of accessory muscles and clear to auscultation bilaterally Cardio regular rate, regular rhythm, S1 normal heart sound and S2 normal heart sound GI normal to inspection, nondistended, normoactive bowel sounds, soft to palpation and non-tender Extremity normal to inspection and full ROM Neuro Sensorium / Orientation: awake and alert Psych affect normal Assessment & Plan Assessment/Plan (1) Urinary tract infection: PLAN: on CTX. Follow up final culture results, thus far showing GNR. (2) Hyperglycemia due to type 2 diabetes mellitus: QUALIFIERS: Diabetes mellitus custodial insulin use: with middle or intermediate school principal use Qualified Code(s): E11.65 -Type 2 diabetes mellitus with hyperglycemia; Z79.4 - half-way (current) use of insulin PLAN: poorly controlled. Previous a1c 11.4. Recheck 12.2. On SSI. Resume U500 Is established with endocrinology and a1c went from 7.2 (04/2024) to 11.4. Patient had been missingdoses. (3) Constipation: QUALIFIERS: Constipation type: unspecified constipation type Qualified Code(s): K59.00 - Constipation, unspecified PLAN: Add dulcolax, Miralax. (4) Nausea & vomiting: PLAN: supportive mgmt. PLAN: Plan Chronic conditions: * obesity class III: complicates care and recovery. * anemia: on ferrous sulfate. Heme positive stools. Did have colonoscopy on the 07/29: stool in the recto-sigmoid colon, simoid and descending colon, transverse colon and in the cecum. * depression: fluoxetine * hypothyroidism: levothyroxine * GERD: PPI, sucralfate * Neuroendocrine tumor of the stomach. Was referred to [facility] for further evaluation by [facility]. VTE prophylaxis: LMWH Disposition: pending final culture results. Charges/Coding Visit Charges Inpatient E&M: 97194 Subs Hosp L2 01/12/25 1504 Cosigner Signature (if applicable): CC: ~ Signed [facility]06-23-2025 Progress note Author Velasquez Vivas [facility] Note Date/Time January 11, 2025 10:2 2am [facility] Medical Records Department [address] [place] [address] Progress Note - Hospitalist 01/11/25 0722 MR#: [id number] Acct: [id number] Name: LEROY MONTEJO Rep #:[id number] : 1965 59 From: Velasquez Vivas DO PCP: DARLING KWAN Status:ADM IN Location: [facility] [id number] Reason for Visit Reason for Visit: Diagnoses Bandemia (01/11/25) Type 2 diabetes mellitus with hyperglycemia (01/11/25) Morbid (severe) obesity due to excess calories (01/11/25) Constipation, unspecified (01/11/25) Acute cystitis without hematuria (01/11/25) Adverse effect of unspecified drugs, medicaments and biological substances, initial encounter (01/11/25) Body mass index [BMI] 45.0-49.9, adult (01/11/25) half-way (current) use of insulin (01/11/25) Personal history of COVID-19 (01/11/25) Subjective Subjective Complaining of nausea and vomiting. Objective Data Objective Data Vital Signs: Vital Signs Temp Pulse Resp BP Pulse Ox O2 Del Method O2 Flow Rate 37.8 C H 102 H 20 H 138/75 H 96 Nasal Cannula 3 01/11/25 05:54 01/11/25 05:54 01/11/25 05:54 01/11/25 05:54 01/11/25 05:54 01/11/25 06:10 01/11/25 06:10 Oxygen Flow Rate (L/min) 3 Oxygen Delivery Method Nasal Cannula Weight: 111.4 kg Body Mass Index (BMI) 46.3 Intake & Output: Intake and Output for Last 24 Hours 01/09/25 01/10/25 01/11/25 23:59 23:59 23:59 Intake Total 1050 / 1050 Balance 1050 / 1050 Lab / Micro Data 01/11/25 03:03 01/11/25 03:03 Labs: Laboratory Results - last 24 hr 01/10/25 22:30: Urine Color Yellow, Urine Clarity Cloudy, Urine pH 6.0, Ur Specific [place] 1.015, Urine Protein 30 H, Urine Glucose (UA) 1000 H, Urine Ketones Negative, Urine Occult Blood 150 H, Urine Nitrite Negative, Urine Bilirubin Negative, Urine Urobilinogen Normal, Ur Leukocyte Esterase 500 H, Urine RBC 0-5 SEEN, Urine WBC 50-100 SEEN, Ur Squamous Epith Cells 0 SEEN, Urine Bacteria 4+, Urine Mucus 0 SEEN 01/10/25 22:37: WBC 16.5 H, RBC 5.04, Hgb 12.9, Hct 40.4, MCV 80.2 L, MCH 25.6 L, MCHC 31.9 L, RDW Std Deviation 45.1 H, RDW Coeff of [place] 15.7 H, Plt Count 236, MPV 10.1, Immature Gran % (Auto) 4.600 H, Neut % (Auto) 65.9, Lymph % (Auto) 19.6, [place] % (Auto) 8.1, Eos % (Auto) 1.3, Baso % (Auto) 0.5, Absolute Neuts (auto) 10.9 H, Absolute Lymphs (auto) 3.24, Nucleated RBC % 0, Sodium 130 L, Potassium 5.1, Chloride 94 L, Carbon Dioxide 25.0, Anion Gap 11, BUN 15, Creatinine 0.87, Estim Creat Clear Calc 81.25, Est GFR (MDRD) Non-Af 78, BUN/Creatinine Ratio 17.3, Glucose 486 H*, Lactic Acid 2.0, Calcium 9.4, Magnesium 1.8 01/11/25 00:40: POC Glucose 329 H 01/11/25 02:00: POC Glucose 378 H 01/11/25 03:03: WBC 11.0, RBC 4.54, Hgb 11.5 L, Hct 36.7 L, MCV 80.8 L, MCH 25.3 L, MCHC 31.3 L, RDW Std Deviation 45.2 H, RDW Coeff of [place] 15.5 H, Plt Count 178, MPV 9.7, Immature Gran % (Auto) 4.100 H, Neut % (Auto) 65.4, Lymph % (Auto) 23.8, [place] % (Auto) 4.9, Eos % (Auto) 1.3, Baso % (Auto) 0.5, Absolute Neuts (auto) 7.2, Absolute Lymphs (auto) 2.62, Nucleated RBC % 0, Sodium 131 L, Potassium 4.9, Chloride 97 L, Carbon Dioxide 25.0, Anion Gap 9, BUN 16, Creatinine 0.77, Estim Creat Clear Calc 92.08, Est GFR (MDRD) Non-Af 90, BUN/Creatinine Ratio 21.1 H, Glucose 395 H, Lactic Acid 1.4, Calcium 9.0, Phosphorus 4.8 H, Iron 44 L, TIBC 238 L, Iron Saturation 18.5, Unsaturated IBC 194 L, Ferritin 123, Total Bilirubin 0.38, AST 83 H, ALT 132 H, Alkaline Phosphatase 247 H, Total Protein 6.5, Albumin 3.0 L, Globulin 3.5, Albumin/Globulin Ratio 0.9, TSH 0.373 01/11/25 05:19: POC Glucose 348 H 01/11/25 06:32: POC Glucose 323 H Radiography Diagnostic Testing: Radiology Impression Abdomen/Pelvis CT 01/10/25 22:21 IMPRESSION: No acute intra-abdominal process. Hepatosplenomegaly. Status post cholecystectomy. Fecal stasis, a component of constipation. Reading Location: [place] [address] Physical Exam Const alert Constitutional Narrative: slightly uncomfortable. HEENT head/scalp atraumatic and moist oral mucous membranes Resp normal respiratory effort, no retractions, no use of accessory muscles and clear to auscultation bilaterally Cardio regular rate, regular rhythm, S1 normal heart sound and S2 normal heart sound GI normal to inspection, nondistended, normoactive bowel sounds, soft to palpation, non-tender and non-distended Neuro Sensorium / Orientation: awake and alert Assessment & Plan Assessment/Plan (1) Urinary tract infection: PLAN: on CTX. Follow up final culture results. (2) Hyperglycemia due to type 2 diabetes mellitus: QUALIFIERS: Diabetes mellitus custodial insulin use: with middle or intermediate school principal use Qualified Code(s): E11.65 - Type 2 diabetes mellitus with hyperglycemia; Z79.4 - half-way (current) use of insulin PLAN: poorly controlled. a1c 11.4. Will recheck. On SSI. Resume U500 (3) Constipation: QUALIFIERS: Constipation type: unspecified constipation type Qualified Code(s): K59.00 - Constipation, unspecified PLAN: Add dulcolax, Miralax. (4) Nausea & vomiting: PLAN: supportive mgmt. PLAN: Plan Chronic conditions: * obesity class III: complicates care and recovery. * anemia: on ferrous sulfate * depression: fluoxetine * hypothyoidism: levothyroxine * GERD: PPI, sucralfate VTE prophylaxis: LMWH Charges/Coding Visit Charges Inpatient E&M: 56825 Subs Hosp L2 01/11/25 1022 <Electronically signed by Velasquez Vivas DO> Cosigner Signature (if applicable): CC: ~ Signed [facility] Work Phone: 1(133) 881-991606-23-2025 Progress note [facility] Medical Records Department [address] [place] [address] Progress Note - Hospitalist 01/11/2522 MR#: [id number] Acct: [id number] Name: LEROY MONTEJO Rep #:[id number] : 1965 59 From: Velasquez Vivas DO PCP: DARLING KWAN Status:ADM IN Location: [facility] [id number] Reason for Visit Reason for Visit: Diagnoses Bandemia (01/11/25) Type 2 diabetes mellitus with hyperglycemia (01/11/25) Morbid (severe) obesity due to excess calories (01/11/25) Constipation, unspecified (01/11/25) Acute cystitis without hematuria (01/11/25) Adverse effect of unspecified drugs, medicaments and biological substances, initial encounter (01/11/25) Body mass index [BMI] 45.0-49.9, adult (01/11/25) 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 (01/11/25) Personal history of COVID-19 (01/11/25) Subjective Subjective Complaining of nausea and vomiting. Objective Data Objective Data Vital Signs: Vital Signs Temp Pulse Resp BP Pulse Ox O2 Del Method O2 Flow Rate 37.8 C H 102 H 20 H 138/75 H 96 Nasal Cannula 3 01/11/25 05:54 01/11/25 05:54 01/11/25 05:54 01/11/25 05:54 01/11/25 05:54 01/11/25 06:10 01/11/25 06:10 Oxygen Flow Rate (L/min) 3 Oxygen Delivery Method Nasal Cannula Weight: 111.4 kg Body Mass Index (BMI) 46.3 Intake & Output: Intake and Output for Last 24 Hours 01/09/25 01/10/25 01/11/25 23:59 23:59 23:59 Intake Total 1050 / 1050 Balance 1050 / 1050 Lab / Micro Data 01/11/25 03:03 01/11/25 03:03 Labs: Laboratory Results - last 24 hr 01/10/25 22:30: Urine Color Yellow, Urine Clarity Cloudy, Urine pH 6.0, Ur Specific [place] 1.015, Urine Protein 30 H, Urine Glucose (UA) 1000 H, Urine Ketones Negative, Urine Occult Blood 150 H, Urine Nitrite Negative, Urine Bilirubin Negative, Urine Urobilinogen Normal, Ur Leukocyte Esterase 500 H, Urine RBC 0-5 SEEN, Urine WBC 50-100 SEEN, Ur Squamous Epith Cells 0 SEEN, Urine Bacteria 4+, Urine Mucus 0 SEEN 01/10/25 22:37: WBC 16.5 H, RBC 5.04, Hgb 12.9, Hct 40.4, MCV 80.2 L, MCH 25.6 L, MCHC 31.9 L, RDW Std Deviation 45.1 H, RDW Coeff of [place] 15.7 H, Plt Count 236, MPV 10.1, Immature Gran % (Auto) 4.600H, Neut % (Auto) 65.9, Lymph % (Auto) 19.6, [place] % (Auto) 8.1, Eos % (Auto) 1.3, Baso % (Auto) 0.5,Absolute Neuts (auto) 10.9 H, Absolute Lymphs (auto) 3.24, Nucleated RBC % 0, Sodium 130 L, Potassium 5.1, Chloride 94 L, Carbon Dioxide 25.0, Anion Gap 11, BUN 15, Creatinine 0.87, Estim Creat ClearCalc 81.25, Est GFR (MDRD) Non-Af 78, BUN/Creatinine Ratio 17.3, Glucose 486 H*, Lactic Acid 2.0, Calcium 9.4, Magnesium 1.8 01/11/25 00:40: POC Glucose 329 H 01/11/25 02:00: POC Glucose 378 H 01/11/25 03:03: WBC 11.0, RBC 4.54, Hgb 11.5 L, Hct 36.7 L, MCV 80.8 L, MCH 25.3 L, MCHC 31.3 L, RDW Std Deviation 45.2 H, RDW Coeff of [place] 15.5 H, Plt Count 178, MPV 9.7, Immature Gran % (Auto) 4.100 H, Neut % (Auto) 65.4, Lymph % (Auto) 23.8, [place] % (Auto) 4.9, Eos % (Auto) 1.3, Baso % (Auto) 0.5, Absolute Neuts (auto) 7.2, Absolute Lymphs (auto) 2.62, Nucleated RBC % 0, Sodium 131 L, Potassium4.9, Chloride 97 L, Carbon Dioxide 25.0, Anion Gap 9, BUN 16, Creatinine 0.77, Estim Creat Clear Calc 92.08, Est GFR (MDRD) Non-Af 90, BUN/Creatinine Ratio 21.1 H, Glucose 395 H, Lactic Acid 1.4, Calcium 9.0, Phosphorus 4.8 H, Iron 44 L, TIBC 238 L, Iron Saturation 18.5, Unsaturated IBC 194 L, Ferritin 123, Total Bilirubin 0.38, AST 83 H, ALT 132 H, Alkaline Phosphatase 247 H, Total Protein 6.5, Albumin 3.0 L, Globulin 3.5, Albumin/Globulin Ratio 0.9, TSH 0.373 01/11/25 05:19: POC Glucose 348 H 01/11/25 06:32: POC Glucose 323 H Radiography Diagnostic Testing: Radiology Impression Abdomen/Pelvis CT 01/10/25 22:21 IMPRESSION: No acute intra-abdominal process. Hepatosplenomegaly. Status post cholecystectomy. Fecal stasis, a component of constipation. Reading Location: [place] [address] Physical Exam Const alert Constitutional Narrative: slightly uncomfortable. HEENT head/scalp atraumatic and moist oral mucous membranes Resp normal respiratory effort, no retractions, no use of accessory muscles and clear to auscultation bilaterally Cardio regular rate, regular rhythm, S1 normal heart sound and S2 normal heart sound GI normal to inspection, nondistended, normoactive bowel sounds, soft to palpation, non-tender and non-distended Neuro Sensorium / Orientation: awake and alert Assessment & Plan Assessment/Plan (1) Urinary tract infection: PLAN: on CTX. Follow up final culture results. (2) Hyperglycemia due to type 2 diabetes mellitus: QUALIFIERS: Diabetes mellitus custodial insulin use: with middle or intermediate school principal use Qualified Code(s): E11.65 -Type 2 diabetes mellitus with hyperglycemia; Z79.4 - 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 PLAN: poorly controlled. a1c 11.4. Will recheck. On SSI. Resume U500 (3) Constipation: QUALIFIERS: Constipation type: unspecified constipation type Qualified Code(s): K59.00 - Constipation, unspecified PLAN: Add dulcolax, Miralax. (4) Nausea & vomiting: PLAN: supportive mgmt. PLAN: Plan Chronic conditions: * obesity class III: complicates care and recovery. * anemia: on ferrous sulfate * depression: fluoxetine * hypothyoidism: levothyroxine * GERD: PPI, sucralfate VTE prophylaxis: LMWH Charges/Coding Visit Charges Inpatient E&M: 06608 Subs Hosp L2 01/11/25 1022 Cosigner Signature (if applicable): CC: ~ Signed [facility]06-23-2025 History and physical note Author Amadou Licea [facility] Note Date/Time January 11, 2025 6:01 am [facility] Medical Records Department [address] [place] [address] H&P Exam - Hospitalist 01/11/25 0021 MR#: [id number] Acct: [id number] Name: LEROY MONTEJO Rep #:[id number] : 1965 59 From: Amadou Alvarez DO PCP: DARLING KWAN Status:ADM IN Location: [facility] [id number] - General General Date of Admission: 01/11/25 Date of Service: 01/11/25 Chief Complaint: Lower Abdominal Pain and Urinary Frequency with Hyperglycemia. HPI Narrative LEROY MONTEJO, is a 59 F with a past medical history of hyperlipidemia; on fenofibrate, hypothyroidism; on levothyroxine, morbid obesity; BMI 46.2 this admission, KODI; on CPAP, chronic hypoxia on ~2-3L NC, former tobacco abuse, history of cannabis abuse, history of asthma; on as needed albuterol, DM-2; of unknown control on dulaglutide and sliding scale insulin 3 times daily, diabeticneuropathy; on gabapentin 3 times daily, history of EtOH abuse (quit ~2001); with subsequent cirrhosis, history of cocaine and methamphetamine abuse (quit ~5years ago), history of primary malignant neuroendocrine tumor of the stomach; s/p excision (2023), history of urolithiasis, history of laparoscopic cholecystectomy, CELSA; on ferrous sulfate, depression with anxiety; on fluoxetine, GERD; on pantoprazole twice daily and sucralfate AC, OA; with chronic back pain on as needed oxycodone- acetaminophen every 6 hours as needed and recently diagnosed COVID-19 treated with glucocorticoids who presents to [facility] ER complaining of dysuria and lower abdominal pain with hyperglycemia. Ms. Montejo reports her symptoms began approximately 1 day prior to admission with a gradual-onset of lower abdominal pain with urinary frequency, hesitancy and urgency with discolored urine. She also admits to constipation. She deniesassociated fever, chills, back pain, dysuria, hematuria, nausea, vomiting, diarrhea, chest pain, shortness of breath, headache or rash. In the ER she was noted to have UA positive for evidence of Acute Cystitis; without hematuria withcorresponding Leukocytosis of 16.5 K with Left-shift of 4.6% (but without other clinical signs of sepsis) complicated by severe Hyperglycemia of 486 mg/dL suspected to be due to Adverse Drug Reaction to recent steroid administration for treatment of COVID-[address] scan of abdomen pelvis suggestive of fecal stasis with a component of constipation and she was then admitted to the general medical floor for ongoing care for stay that is expected to extend beyond 2 midnights. [facility] Medical History Anxiety Loose, teeth Post-menopausal Insulin [...] #3 ea 02/18/23 Unknown Rx Sensor device) blood-glucose,geological e logger,cont #1 ea 02/18/23 Unknown Rx (Dexcom G7 Word Processor Technician) acetaminophen 500 mg tablet 500 - 1,000 [...] 40 mg tablet,delayed 40 mg PO BID gerd 30 days #60 tabs 04/07/24 Unknown Rx release sucralfate 1 gram tablet 1 g PO 1HR_ACHS gerd 14 days #42 04/07/24 Unknown Rx tabs fenofibrate nanocrystallized 48 mg 48 mg PO QHS 1 saray h #30 tabs 05/09/24 Unknown Rx tablet dulaglutide 4.5 mg/0.5 mL 4.5 mg subcut NARVAEZ diabetes 07/05/24 History subcutaneous pen injector (Trulicity) lancets 30 gauge (Easy Touch #100 ea 09/24/24 Unknown Rx Lancets) cholecalciferol (vitamin D3) 1,250 1,250 mcg PO QWEEK supplement 09/30/24 Unknown History mcg (50,000 unit) capsule ferrous sulfate 325 mg (65 mg 325 mg PO QODAY iron 07/15 Unknown History iron) tablet gabapentin 300 mg capsule 300 mg PO TID pain 30 days # 90 caps 09/30/24 Unknown Rx oxycodone-acetaminophen 5 mg-325 1 tab PO Q6H PRN pain 3 days #12 09/30/24 Unknown Rx mg tablet (Percocet) tabs albuterol sulfate 90 mcg/actuation 2 inh inhalation Q4 -6H PRN 10/30/24 Unknown Rx aerosol inhaler shortness of breath or wheez ing #8.5 grams fluticasone 500 mcg-salmeterol 50 1 inh inhalation Q12 H astham #60 ea 10/30/24 Unknown Rx mcg/dose blistr [...] does not use caffeine: Yes Type: tea ROS ROS Narrative Review of Systems: Constitutional: Patient denies fever or chills. Eyes: Patient denies change in vision or discharge from eyes. ENT: Patient denies runny nose, sore throat or ear pain. Resp: Patient denies shortness of breath or cough. CV: Patient denies chest pain, palpitations, heart racing or lower extremity edema. GI: Patient admits to constipation but she denies nausea, vomiting or diarrhea. : Patient admits to urinary frequency, hesitancy and discoloration of urine asper HPI. MSK: Patient denies arthralgias or myalgias. Skin: Patient denies rash, abscess, wounds or jaundice. Psych: Patient denies symptoms of uncontrolled depression or anxiety. Neuro: Patient denies headache, paresthesias or focal neurologic deficits. Allergy: Patient denies lip swelling, tongue swelling or urticaria. Hematology: Patient denies easy bleeding or easy bruisability. Endocrinology: Patient admits to polyuria and polydipsia with persistent hyperglycemia after recent steroid administration as per HPI. 14 point ROS otherwise negative save for positives noted above in HPI. Vital Signs Vital Signs Vital Signs: 01/10/25 22:13 01/10/25 22:43 01/10/25 22:45 Temperature 98.8 F Temperature Source Oral Pulse Rate 124 H 109 H 103 H Respiratory Rate 20 H 16 20 H Blood Pressure 167/77 H 131/68 H 131/68 H Blood Pressure Mean 107 89 89 Pulse Ox 95 99 96 Oxygen Delivery Method Nasal Cannula Room Air Room Air Oxygen Flow Rate (L/min) 3 Weight Weight: 244 lb 6.4 oz Body Mass Index (BMI) 46.1 Physical Exam Const alert, oriented x3 and no apparent distress Constitutional Narrative: Morbidly obese. General Appearance: cooperative HEENT normocephalic, head/scalp atraumatic, hearing grossly normal bilaterally and moist oral mucous membranes Eyes PERRL and EOMs intact bilaterally Neck no lymphadenopathy, supple and no JVD Resp normal respiratory effort, no retractions, no use of accessory muscles and clearto auscultation bilaterally Cardio regular rate and regular rhythm GI normal to inspection, nondistended, normoactive bowel sounds, soft to palpation,non-tender and non-distended GI Narrative: Morbidly obese. Extremity normal to inspection, full ROM and no clubbing, cyanosis or edema Skin Skin Narrative: Patient has no evidence of rash, abscess, wounds or jaundice. Neuro oriented x3, CN's II-XII intact bilaterally, moves all extremities and no focal motor deficits Sensorium / Orientation: awake, alert, oriented to person, oriented to place andoriented to time Speech: speech normal Psych affect normal Results Medical Records Data Attestation: I reviewed the patient's medical records Lab / Micro Data Attestation: I reviewed the patient's lab results. 01/10/25 22:37 01/10/25 22:37 Labs: Laboratory Results - last 24 hr 01/10/25 22:30: Urine Color Yellow, Urine Clarity Cloudy, Urine pH 6.0, Ur Specific [place] 1.015, Urine Protein 30 H, Urine Glucose (UA) 1000 H, Urine Ketones Negative, Urine Occult Blood 150 H, Urine Nitrite Negative, Urine Bilirubin Negative, Urine Urobilinogen Normal, Ur Leukocyte Esterase 500 H, Urine RBC 0-5 SEEN, Urine WBC 50-100 SEEN, Ur Squamous Epith Cells 0 SEEN, UrineBacteria 4+, Urine Mucus 0 SEEN 01/10/25 22:37: WBC 16.5 H, RBC 5.04, Hgb 12.9, Hct 40.4, MCV 80.2 L, MCH 25.6 L, MCHC 31.9 L, RDW Std Deviation 45.1 H, RDW Coeff of [place] 15.7 H, Plt Count 236,MPV 10.1, Immature Gran % (Auto) 4.600 H, Neut % (Auto) 65.9, Lymph % (Auto) 19.6, [place] % (Auto) 8.1, Eos % (Auto) 1.3, Baso % (Auto) 0.5, Absolute Neuts (auto) 10.9 H, Absolute Lymphs (auto) 3.24, Nucleated RBC % 0, Sodium 130 L, Potassium 5.1, Chloride 94 L, Carbon Dioxide 25.0, Anion Gap 11, BUN 15, Creatinine 0.87, Estim Creat Clear Calc 81.25, Est GFR (MDRD) Non-Af 78, BUN/Creatinine Ratio 17.3, Glucose 486 H*, Lactic Acid 2.0, Calcium 9.4 Imaging Radiology Impression Abdomen/Pelvis CT 01/10/25 22:21 IMPRESSION: No acute intra-abdominal process. Hepatosplenomegaly. Status post cholecystectomy. Fecal stasis, a component of constipation. Reading Location: [place] [address] Assessment & Plan Assessment/Plan (1) Acute cystitis without hematuria: (2) Leukocytosis: QUALIFIERS: Leukocytosis type: bandemia Qualified Code(s): D72.825 - Bandemia (3) Hyperglycemia due to type 2 diabetes mellitus: QUALIFIERS: Diabetes mellitus middle or intermediate school principal insulin use: with custodial use Qualified Code(s): E11.65 - Type 2 diabetes mellitus with hyperglycemia; Z79.4 - 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 (4) Adverse drug reaction: QUALIFIERS: Encounter type: initial encounter Qualified Code(s): T50.905A - Adverse effect of unspecified drugs, medicaments and biological substances, initial encounter (5) Constipation: QUALIFIERS: Constipation type: unspecified constipation type Qualified Code(s): K59.00 - Constipation, unspecified (6) History of COVID-19: (7) Morbid obesity with BMI of 45.0-49.9, adult: PLAN: Plan 1. UA positive for evidence of Acute Cystitis; without hematuria with corresponding Leukocytosis of 16.5 K with Left-shift of 4.6% (but without other clinical signs of sepsis) - Admit to general medical floor. Continue with empiric IV ceftriaxone begun in the ER and await culture and sensitivity data. Give acetaminophen prn for [id number] (level 1-5/10) pain or fever. Give oxycodone-acetaminophen as needed for severe (level 6-10) pain. Give ondansetron IV prn for nausea and vomiting. 2. Severe Hyperglycemia of 486 mg/dL suspected to be due to Adverse Drug Reaction to recent steroid administration for treatment of COVID-19 complicating#1 - Hold further steroids to avoid worsening hyperglycemia. Give insulin glargine 30 units sq once plus SSI. 3. CT scan of abdomen pelvis suggestive of fecal stasis with a component of constipation compounding #1 & #2 - Give lactulose x 1 plus Sara-Lax daily. 4. Recently diagnosed COVID-19 treated with glucocorticoids adding to the medical complexity of #1 - #3 - Noted. 5. Morbid (Class III) obesity; BMI 46.2 this admission plus KODI; on CPAP addingto the burden of disease outlined from #1 - #4 - Weight loss will be recommended. Resume nocturnal CPAP. Check TSH. This complicates her case and may hamper recovery. 6. DM-2; of unknown control on dulaglutide and sliding scale insulin 3 times daily plus diabetic neuropathy; on gabapentin 3 times daily - ADA diet. We willgive insulin glargine 30 U once. Check FSBS q. AC/HS plus SSI. Check HgbA1c. 7. Chronic hypoxia on ~2-3L NC - Maintain current supplemental oxygen levels. 8. History of primary malignant neuroendocrine tumor of the stomach; s/p excision (2023) with GERD - Continue PPI and sucralfate as previous. 9. History of EtOH abuse (quit ~2001); with subsequent cirrhosis - Noted. 10. Hyperlipidemia; on fenofibrate - Stable. 11. Hypothyroidism; on levothyroxine - Resume levothyroxine and check TSH. 12. Former tobacco abuse - Noted. 13. History of cannabis abuse - Noted. 14. History of asthma; on as needed albuterol - Stable with no evidence of acute flare at this time. 15. History of cocaine and methamphetamine abuse (quit ~5 years ago) - Noted. 16. History of urolithiasis - Noted. 17. History of laparoscopic cholecystectomy - Noted. 18. CELSA; on ferrous sulfate - Stable with hemoglobin of hemoglobin of 12.9 g deciliter and mildly low MCV of 80.2 fL present on admission. Check iron studies and Hemoccult stools. 19. Depression with anxiety; on fluoxetine - Maintain present treatment. 20. OA; with chronic back pain on as needed oxycodone-acetaminophen every 6 hours as needed - Continue oxycodone-acetaminophen as needed for severe (level 6-10/10) pain as outlined in #1. 21. DVT prophylaxis - Enoxaparin 40 mg SQ twice daily plus SCDs. Total time: Approximately (but not less than) 75 minutes. Charges/Coding Visit Charges Inpatient E&M: 72002 Init Hosp L3 01/11/25 0601 <Electronically signed by Amadou Arthur DO> Cosigner Signature (if applicable): CC: Dr. Amadou Arthur DO; DARLING KWAN~ Signed [facility] Work Phone: 1(800) 358-573706-23-2025 History and physical note [facility] Medical Records Department [address] [place] [address] H&P Exam - Hospitalist 01/11/25 0021 MR#: [id number] Acct: [id number] Name: LEROY MONTEJO Rep #:[id number] : 1965 59 From: Amadou Alvarez DO PCP: DARLING KWAN Status:ADM IN Location: [facility] [id number] - General General Date of Admission: 01/11/25 Date of Service: 01/11/25 Chief Complaint: Lower Abdominal Pain and Urinary Frequency with Hyperglycemia. HPI Narrative LEROY MONTEJO, is a 59 F with a past medical history of hyperlipidemia; on fenofibrate, hypothyroidism; on levothyroxine, morbid obesity; BMI 46.2 this admission, KODI; on CPAP, chronic hypoxia on ~2-3L NC, former tobacco abuse, history of cannabis abuse, history of asthma; on as needed albuterol, DM-2; of unknown control on dulaglutide and sliding scale insulin 3 times daily, diabeticneuropathy; on gabapentin 3 times daily, history of EtOH abuse (quit ~2001); with subsequent cirrhosis, history of cocaine and methamphetamine abuse (quit ~5years ago), history of primary malignant neuroendocrinetumor of the stomach; s/p excision (2023), history of urolithiasis, history of laparoscopic cholecystectomy, CELSA; on ferrous sulfate, depression with anxiety; on fluoxetine, GERD; on pantoprazole twice daily and sucralfate AC, OA; with chronic back pain on as needed oxycodone-acetaminophen every 6 hours as needed and recently diagnosed COVID-19 treated with glucocorticoids who presents to [facility] ER complaining of dysuria and lower abdominal pain with hyperglycemia. Ms. Montejo reports her symptoms began approximately 1 day prior to admission with a gradual-onset of lower abdominal pain with urinary frequency, hesitancy and urgency with discolored urine. She alsoadmits to constipation. She deniesassociated fever, chills, back pain, dysuria, hematuria, nausea, vomiting, diarrhea, chest pain, shortness of breath, headache or rash. In the ER she was noted to have UA positive for evidence of Acute Cystitis; without hematuria withcorresponding Leukocytosis of 16.5 K with Left-shift of 4.6% (but without other clinical signs of sepsis) complicated by severe Hyperglycemia of 486 mg/dL suspected to be due to Adverse Drug Reaction to recent steroid administration for treatment of COVID-[address] scan of abdomen pelvis suggestive of fecal stasis with a component of constipation and she was then admitted to the general medical floor for ongoing care for stay that is expected to extend beyond 2 midnights. [facility] Medical History Anxiety Loose, teeth Post-menopausal Insulin [...] #3 ea 02/18/23 Unknown Rx Sensor device) blood-glucose,geological e logger,cont #1 ea 02/18/23 Unknown Rx (Dexcom G7 Word Processor Technician) acetaminophen 500 mg tablet 500 - 1,000 [...] 40 mg tablet,delayed 40 mg PO BID gerd 30 days #60 tabs 04/07/24 Unknown Rx release sucralfate 1 gram tablet 1 g PO 1HR_ACHS gerd 14 days #42 04/07/24 Unknown Rx tabs fenofibrate nanocrystallized 48 mg 48 mg PO QHS 1 saray h #30 tabs 05/09/24 Unknown Rx tablet dulaglutide 4.5 mg/0.5 mL 4.5 mg subcut NARVAEZ diabetes 07/05/24 History subcutaneous pen injector (Trulicity) lancets 30 gauge (Easy Touch #100 ea 09/24/24 Unknown Rx Lancets) cholecalciferol (vitamin D3) 1,250 1,250 mcg PO QWEEK supplement 09/30/24 Unknown History mcg (50,000 unit) capsule ferrous sulfate 325 mg (65 mg 325 mg PO QODAY iron 07/15 Unknown History iron) tablet gabapentin 300 mg capsule 300 mg PO TID pain 30 days # 90 caps 09/30/24 Unknown Rx oxycodone-acetaminophen 5 mg-325 1 tab PO Q6H PRN pain 3 days #12 09/30/24 Unknown Rx mg tablet (Percocet) tabs albuterol sulfate 90 mcg/actuation 2 inh inhalation Q4 -6H PRN 10/30/24 Unknown Rx aerosol inhaler shortness of breath or wheez ing #8.5 grams fluticasone 500 mcg-salmeterol 50 1 inh inhalation Q12 H astham #60 ea 10/30/24 Unknown Rx mcg/dose blistr [...] does not use caffeine: Yes Type: tea ROS ROS Narrative Review of Systems: Constitutional: Patient denies fever or chills. Eyes: Patient denies change in vision or discharge from eyes. ENT: Patient denies runny nose, sore throat or ear pain. Resp: Patient denies shortness of breath or cough. CV: Patient denies chest pain, palpitations, heart racing or lower extremity edema. GI: Patient admits to constipation but she denies nausea, vomiting or diarrhea. : Patient admits to urinary frequency, hesitancy and discoloration of urine asper HPI. MSK: Patient denies arthralgias or myalgias. Skin: Patient denies rash, abscess, wounds or jaundice. Psych: Patient denies symptoms of uncontrolled depression or anxiety. Neuro: Patient denies headache, paresthesias or focal neurologic deficits. Allergy: Patient denies lip swelling, tongue swelling or urticaria. Hematology: Patient denies easy bleeding or easy bruisability. Endocrinology: Patient admits to polyuria and polydipsia with persistent hyperglycemia after recentsteroid administration as per HPI. 14 point ROS otherwise negative save for positives noted above in HPI. Vital Signs Vital Signs Vital Signs: 01/10/25 22:13 01/10/25 22:43 01/10/25 22:45 Temperature 98.8 F Temperature Source Oral Pulse Rate 124 H 109 H 103 H Respiratory Rate 20 H 16 20 H Blood Pressure 167/77 H 131/68 H 131/68 H Blood Pressure Mean 107 89 89 Pulse Ox 95 99 96 Oxygen Delivery Method Nasal Cannula Room Air Room Air Oxygen Flow Rate (L/min) 3 Weight Weight: 244 lb 6.4 oz Body Mass Index (BMI) 46.1 Physical Exam Const alert, oriented x3 and no apparent distress Constitutional Narrative: Morbidly obese. General Appearance: cooperative HEENT normocephalic, head/scalp atraumatic, hearing grossly normal bilaterally and moist oral mucous membranes Eyes PERRL and EOMs intact bilaterally Neck no lymphadenopathy, supple and no JVD Resp normal respiratory effort, no retractions, no use of accessory muscles and clearto auscultation bilaterally Cardio regular rate and regular rhythm GI normal to inspection, nondistended, normoactive bowel sounds, soft to palpation,non-tender and non-distended GI Narrative: Morbidly obese. Extremity normal to inspection, full ROM and no clubbing, cyanosis or edema Skin Skin Narrative: Patient has no evidence of rash, abscess, wounds or jaundice. Neuro oriented x3, CN's II-XII intact bilaterally, moves all extremities and no focal motor deficits Sensorium / Orientation: awake, alert, oriented to person, oriented to place andoriented to time Speech: speech normal Psych affect normal Results Medical Records Data Attestation: I reviewed the patient's medical records Lab / Micro Data Attestation: I reviewed the patient's lab results. 01/10/25 22:37 01/10/25 22:37 Labs: Laboratory Results - last 24 hr 01/10/25 22:30: Urine Color Yellow, Urine Clarity Cloudy, Urine pH 6.0, Ur Specific [place] 1.015, Urine Protein 30 H, Urine Glucose (UA) 1000 H, Urine Ketones Negative, Urine Occult Blood 150 H, Urine Nitrite Negative, Urine Bilirubin Negative, Urine Urobilinogen Normal, Ur Leukocyte Esterase 500 H, Urine RBC 0-5 SEEN, Urine WBC 50-100 SEEN, Ur Squamous Epith Cells 0 SEEN, UrineBacteria 4+, Urine Mucus 0 SEEN 01/10/25 22:37: WBC 16.5 H, RBC 5.04, Hgb 12.9, Hct 40.4, MCV 80.2 L, MCH 25.6 L, MCHC 31.9 L, RDW Std Deviation 45.1 H, RDW Coeff of [place] 15.7 H, Plt Count 236,MPV 10.1, Immature Gran % (Auto) 4.600 H, Neut % (Auto) 65.9, Lymph % (Auto) 19.6, [place] % (Auto) 8.1, Eos % (Auto) 1.3, Baso % (Auto) 0.5, Absolute Neuts (auto) 10.9 H, Absolute Lymphs (auto) 3.24, Nucleated RBC % 0, Sodium 130 L, Potassium 5.1, Chloride 94 L, Carbon Dioxide 25.0, Anion Gap 11, BUN 15, Creatinine 0.87, Estim Creat Clear Calc 81.25, Est GFR (MDRD) Non-Af 78, BUN/Creatinine Ratio 17.3, Glucose 486 H*, Lactic Acid 2.0, Calcium 9.4 Imaging Radiology Impression Abdomen/Pelvis CT 01/10/25 22:21 IMPRESSION: No acute intra-abdominal process. Hepatosplenomegaly. Status post cholecystectomy. Fecal stasis, a component of constipation. Reading Location: [place] [address] Assessment & Plan Assessment/Plan (1) Acute cystitis without hematuria: (2) Leukocytosis: QUALIFIERS: Leukocytosis type: bandemia Qualified Code(s): D72.825 - Bandemia (3) Hyperglycemia due to type 2 diabetes mellitus: QUALIFIERS: Diabetes mellitus custodial insulin use: with middle or intermediate school principal use Qualified Code(s): E11.65 -Type 2 diabetes mellitus with hyperglycemia; Z79.4 - 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 (4) Adverse drug reaction: QUALIFIERS: Encounter type: initial encounter Qualified Code(s): T50.905A - Adverse effect of unspecified drugs, medicaments and biological substances, initial encounter (5) Constipation: QUALIFIERS: Constipation type: unspecified constipation type Qualified Code(s): K59.00 - Constipation, unspecified (6) History of COVID-19: (7) Morbid obesity with BMI of 45.0-49.9, adult: PLAN: Plan 1. UA positive for evidence of Acute Cystitis; without hematuria with corresponding Leukocytosis of16.5 K with Left-shift of 4.6% (but without other clinical signs of sepsis) - Admit to general medical floor. Continue with empiric IV ceftriaxone begun in the ER and await culture and sensitivity data. Give acetaminophen prn for [id number] (level 1-5/10) pain or fever. Give oxycodone-acetaminophen as needed for severe (level 6-10) pain. Give ondansetron IV prn for nausea and vomiting. 2. Severe Hyperglycemia of 486 mg/dL suspected to be due to Adverse Drug Reaction to recent steroidadministration for treatment of COVID-19 complicating#1 - Hold further steroids to avoid worsening hyperglycemia. Give insulin glargine 30 units sq once plus SSI. 3. CT scan of abdomen pelvis suggestive of fecal stasis with a component of constipation compounding #1 & #2 - Give lactulose x 1 plus Sara-Lax daily. 4. Recently diagnosed COVID-19 treated with glucocorticoids adding to the medical complexity of #1 - #3 - Noted. 5. Morbid (Class III) obesity; BMI 46.2 this admission plus KODI; on CPAP addingto the burden of disease outlined from #1 - #4 - Weight loss will be recommended. Resume nocturnal CPAP. Check TSH. Thiscomplicates her case and may hamper recovery. 6. DM-2; of unknown control on dulaglutide and sliding scale insulin 3 times daily plus diabetic neuropathy; on gabapentin 3 times daily - ADA diet. We willgive insulin glargine 30 U once. Check FSBSq. AC/HS plus SSI. Check HgbA1c. 7. Chronic hypoxia on ~2-3L NC - Maintain current supplemental oxygen levels. 8. History of primary malignant neuroendocrine tumor of the stomach; s/p excision (2023) with GERD - Continue PPI and sucralfate as previous. 9. History of EtOH abuse (quit ~2001); with subsequent cirrhosis - Noted. 10. Hyperlipidemia; on fenofibrate - Stable. 11. Hypothyroidism; on levothyroxine - Resume levothyroxine and check TSH. 12. Former tobacco abuse - Noted. 13. History of cannabis abuse - Noted. 14. History of asthma; on as needed albuterol - Stable with no evidence of acute flare at this time. 15. History of cocaine and methamphetamine abuse (quit ~5 years ago) - Noted. 16. History of urolithiasis - Noted. 17. History of laparoscopic cholecystectomy - Noted. 18. CELSA; on ferrous sulfate - Stable with hemoglobin of hemoglobin of 12.9 g deciliter and mildly low MCV of 80.2 fL present on admission. Check iron studies and Hemoccult stools. 19. Depression with anxiety; on fluoxetine - Maintain present treatment. 20. OA; with chronic back pain on as needed oxycodone-acetaminophen every 6 hours as needed - Continue oxycodone-acetaminophen as needed for severe (level 6-10/10) pain as outlined in #1. 21. DVT prophylaxis - Enoxaparin 40 mg SQ twice daily plus SCDs. Total time: Approximately (but not less than) 75 minutes. Charges/Coding Visit Charges Inpatient E&M: 23642 Init Hosp L3 01/11/25 0601 Cosigner Signature (if applicable): CC: Dr. Amadou Arthur DO; DARLING KWAN~ Signed [facility]06-23-2025 Discharge summary Author Jacobo Solorzano [facility] Note Date/Time January 11, 2025 12:4 1am [facility] Medical Records Department [address] [place] [address] Emergency Department Summary 01/10/25 MR#: [id number] Acct: [id number] Name: LEROY MONTEJO Rep #:[id number] : 1965 59 From: Jacobo ramirez DO PCP: DARLING KWAN Status:ADM IN Location: MS3 [id number] HPI HPI - Female History of Present [...] intact Psych: Cooperative, appropriate mood and affect [facility] Medical History Anxiety Loose, teeth Post-menopausal Insulin [...] #3 ea 02/18/23 Unknown Rx Sensor device) blood-glucose,geological e logger,cont #1 ea 02/18/23 Unknown Rx (Dexcom G7 Word Processor Technician) acetaminophen 500 mg tablet 500 - 1,000 [...] % (Auto) 65.9 Lymph % (Auto) 19.6 [place] % (Auto) 8.1 Eos % (Auto) 1.3 [...] Clarity Cloudy Urine pH 6.0 Ur Specific [place] 1.015 Urine Protein 30 H Urine Glucose [...] stasis, a component of constipation. Reading Location: [place] [address] Discharge Plan Triage Chief Complaint: Complaint ED Provider: Jacobo Solorzano Dx/Rx/DC Orders Primary Care Provider: VERO ORTEZ What to do if you have Problems For any increased pain, shortness of breath, bleeding, nausea or vomiting, chestpain, or any unexpected problems, contact your Primary Care Provider. Call [facility] ([phone]) or report to the closest Emergency Room. Call 911 if necessary. 01/11/25 0041 <Electronically signed by Jacobo Solorzano DO> Cosigner Signature (if applicable): CC: DARLING KWAN ~ Signed [facility] Work Phone: 1(505) 575-733306-23-2025 Discharge summary [facility] Medical Records Department [address] [place] [address] Emergency Department Summary 01/10/25 MR#: [id number] Acct: [id number] Name: LEROY MONTEJO Rep #:[id number] : 1965 59 From: Jacobo ramirez DO PCP: DARLING KWAN Status:ADM IN Location: [facility] [id number] HPI HPI - Female History of Present Illness Chief Complaint: Complaint Narrative Narrative: Chief complaint and HPI: Lower abdominal pain. 59-year-old female with past medical history of chronic hypoxia on 2 to 3 L nasal cannula, CKD, HTN, DM presents for evaluation of lower abdominal pain.Associated symptoms are urinary frequency, hesitancy, and urgency. [...] intact Psych: Cooperative, appropriate mood and affect [facility] History Anxiety Loose, teeth Post-menopausal Insulin [...] #3 ea 02/18/23 Unknown Rx Sensor device) blood-glucose,geological e logger,cont #1 ea 02/18/23 Unknown Rx (Dexcom G7 Word Processor Technician) acetaminophen 500 mg tablet 500 - 1,000 [...] abnormality, NARAYAN. NS bolus, Zofran, Toradol ordered forsymptoms. Laboratory workup ordered including CT abdomen pelvis without contrast. On chart review, I will in urgent care on 12/30/2024. At that time she was diagnosed with COVID-19 infection. Patient states the symptoms have all improved. CBC with leukocytosis of 16.5. Patient states she was on steroids last week. No anemia. Platelets unremarkable. UA positive for UTI. Urine culture sent. On chartreview, patient has grown E. coli in herprevious urine cultures. Both susceptible to Rocephin. Rocephin ordered. Lactic acid unremarkable. BMP shows baseline hyponatremia at 130. No NARAYAN. Patient has hyperglycemia of 486. No anion gap. Patient states her sugars havebeen high since last week being onsteroids. UTI likely also contributing. On chart review, patient takes Trulicity as well as NlqextzG970 100 unit 3 times daily. States she [...] % (Auto) 65.9 Lymph % (Auto) 19.6 [place] % (Auto) 8.1 Eos % (Auto) 1.3 [...] Clarity Cloudy Urine pH 6.0 Ur Specific [place] 1.015 Urine Protein 30 H Urine Glucose [...] stasis, a component of constipation. Reading Location: [place] [address] Discharge Plan Triage Chief Complaint: Complaint ED Provider: Jacobo Solorzano Dx/Rx/DC Orders Primary Care Provider: VERO ORTEZ What to do if you have Problems For any increased pain, shortness of breath, bleeding, nausea or vomiting, chestpain, or any unexpected problems, contact your Primary Care Provider. Call [facility] ([phone]) or report tothe closest Emergency Room. Call 911 if necessary. 01/11/25 0041 Cosigner Signature (if applicable): CC: DARLING KWAN ~ Signed [facility]06-23-2025 Radiology Diagnostic study note [facility] Imaging Services [address] [place] [address] Abdomen/Pelvis without Cont MR#: [id number] Acct: [id number] Name: LEROY MONTEJO Rep #: [id number] : 1965 F 59 From: Babatunde Gustafson MD PCP: DARLING KWAN Status: REG ER Study:Abdomen/Pelvis without Cont Date of Exa m: 01/10/25 Exam# [id number] Ordering Dr: Jacobo Gaspar DO PROCEDURE: ABDOMEN/PELVIS [...] coronal images of the abdomen pelvis obtained withoutIV contrast administration. COMPARISON: None. FINDINGS: The visualized [...] stasis, a component of constipation. Reading Location: [place] [address] CC: Dr. Jacobo Solorzano DO; DARLING KWAN ~ Lathe Sander: Signed [facility]06-22-2025 Discharge summary Author Jacobo Solorzano [facility] Note Date/Time January 11, 2025 12:4 1am [facility] Medical Records Department [address] [place] [address] Emergency Department Summary 01/10/25 MR#: [id number] Acct: [id number] Name: LEROY MONTEJO Rep #:[id number] : 1965 59 From: Jacobo ramirez DO PCP: DARLING KWAN Status:ADM IN Location: [facility] ZL302-3 HPI HPI - Female History of Present [...] intact Psych: Cooperative, appropriate mood and affect [facility] Medical History Anxiety Loose, teeth Post-menopausal Insulin [...] #3 ea 02/18/23 Unknown Rx Sensor device) blood-glucose,geological e logger,cont #1 ea 02/18/23 Unknown Rx (Dexcom G7 Word Processor Technician) acetaminophen 500 mg tablet 500 - 1,000 [...] % (Auto) 65.9 Lymph % (Auto) 19.6 [place] % (Auto) 8.1 Eos % (Auto) 1.3 [...] Clarity Cloudy Urine pH 6.0 Ur Specific [place] 1.015 Urine Protein 30 H Urine Glucose [...] stasis, a component of constipation. Reading Location: [place] [address] Discharge Plan Triage Chief Complaint: Complaint ED Provider: Jacobo Solorzano Dx/Rx/DC Orders Primary Care Provider: VERO ORTEZ What to do if you have Problems For any increased pain, shortness of breath, bleeding, nausea or vomiting, chestpain, or any unexpected problems, contact your Primary Care Provider. Call [facility] ([phone]) or report to the closest Emergency Room. Call 911 if necessary. 01/11/25 0041 <Electronically signed by Jacobo Solorzano DO> Cosigner Signature (if applicable): CC: DARLING KWAN ~ Signed [facility] Work Phone: 1(708) 596-799906-12-2025 History of Present illness Narrative* Scott Berrios [...] retrieved. Clip (MR conditional) was placed. Clip it security analyst: [employer]. - An endoclip was found in the stomach. Removal was successful. - Two gastric polyps (0.9-1.1 cm in the gastric antrum). Resected and retrieved. Clips (MR conditional) were placed. Clip it security analyst: [employer]. - 1.5cm post mucosectomy scar in the gastric body. Clips (MR conditional) were placed. Clip it security analyst: [employer]. - A hypoechoic irregular mass was [...] neuroendocrine cell hyperplasia. Ki 67 is unremarkable. 01/08/25: Colonoscopy : prep was inadequate. Will request procedure note. Was advised repeat colonoscopy in 6 months. Interim History Chief Complaint Patient presents with Follow-up (Please send link to listed mobile # [phone] C/o having issues with acid reflux and she was recently diagnosed with COVID and is she is currently on treatment for this Leroy Montejo is present today for a [...] metaplastic gastritis (AMAG). Clinical correlation is recommended. Rn Teacher slides were reviewed at the daily GI [...] I, or a Nurse Practitioner or Physician's Activities Director Scouting had a Ymdl-oc-Aoax Encounter with them. Based upon those findings, [...] x 2 DILATION AND CURETTAGE LAP CHOLECYSTECTOMY [facility] family history includes Breast Cancer (age of [...] colonoscopy in 6 mo. She will call [facility] for scheduling. C/w iron supplementation. Hyponatremia: [...] with the discharge instructions. [facility] Instructions* Patient Instructions* Scott Berrios MD, MPH - 12/31/2024 2:50 PM EDT Referral to hepatology (local) please send requisition [facility] RTC in approx [address] Berrios (in person) Labs and scans approx 10 days prior to RTC documented in this encounterCommunity [facility]06-11-2025 Progress note [facility] [address], [address] [place] [address] OFFICE VISIT Date of Service: 12/30/24 MR#: [id number] Acct: [id number] Name: LEROY MONTEJO Rep #: [id number] : 1965 Provider: ALISA Abbott Age/Sex: 59/F [...] COMPLAINT/FRANCO/COUGH Chief Complaint: congest, BA, FRANCO, cough Belting Cutter Required: No Is patient in pain?: No [...] #3 ea 02/18/23 5 Rx Sensor device) blood-glucose,geological e logger,cont #1 ea 02/18/23 10/30/24 Rx (Dexcom G7 Word Processor Technician) acetaminophen 500 mg tablet 500 - 1,000 [...] of breath or dyspnea on exertion. No xbtr-rsw-mclpian products taken to assist. Several close contacts [...] Patient aware of isolation recommendations and [facility] department notification. Patient contacted her PCPs office [...] s ALISA CUELLAR> Date _ Neal CUELLAR Cosign Signature: Date (if applicable) CC: ~ [facility]06-11-2025 Progress note Author Neal Ruiz [facility] Note Date/Time December 30, 2024 11:0 7am [facility] [address], [address] [place], [place] [id number] OFFICE VISIT Date of Service: 12/30/24 MR#: [id number] Acct: [id number] Name: LEROY MONTEJO Rep #: [id number] : 1965 Provider: ALISA Abbott Age/Sex: 59/F [...] COMPLAINT/FRANCO/COUGH Chief Complaint: congest, BA, FRANCO, cough Belting Cutter Required: No Is patient in pain?: No [...] #3 ea 02/18/23 5 Rx Sensor device) blood-glucose,geological e logger,cont #1 ea 02/18/23 10/30/24 Rx (Dexcom G7 Word Processor Technician) acetaminophen 500 mg tablet 500 - 1,000 [...] 3L O2 constantly and cpap at night. [facility] Medical History Anxiety Loose, teeth Post-menopausal Insulin [...] of breath or dyspnea on exertion. No ygme-kls-jcowkyl products taken to assist. Several close contacts [...] Patient aware of isolation recommendations and [facility] department notification. Patient contacted her PCPs office [...] Cosigner Signature: Date (if applicable) CC: ~ [facility] Work Phone: 1(726) 308-428705-15-2025 Note. MICRO - Microbiology PROCEDURE: Urine Culture [...] Locations *1: This test was performed at: [facility], [address] [place] [address], [id number] [place], [place] 1796304-29-2025 NotePatient Outreach (FAMPWS) LEROY MONTEJO ([id number]) 1965 F Date Time Provider Department 11/17/24 [...] Unknown Date Reviewed: 09/30/2024 Reviewed by: Rosa Cardenas RN - Fully Assessed Visit Diagnosis:Encounter for screening mammogram for breast cancer [Z12.31] Order(s):[facility] SCREENING W JORGE ALBERTO [[id number]] Order #: [id number] FUTURE Prescriptions as of 12/18/2024 - cefdinir [...] times daily until gone. - DEXCOM G7 HEALTH ADVOCATE misc - DEXCOM G7 SENSOR nelly APPLY [...] needles, DISPOSABLE, (PEN NEEDLE) 31 gauge x 5/16" Use one needle 3-4 times daily with [...] 05/17/2023 Encounter Status:Closed by EPIC, PRODUSER on 12/18/24[facility] 10-30-2024 Evaluation note* Diagnosis Onset Date Resolution Status Admit Date Asthma acute October 30 12:32pm Hypoxemia acute October 30 12:32pm Obstructive sleep apnea acute A pril 2024 12:32pm Acute cystitis without hematuria resolved January 11, 2025 1:04am Leukocytosis resolved January 11 1:04am Nausea & vomiting resolved January 112024 1:04am Constipation inactive January 11 1:04am Morbid obesity with BMI of 45.0-49.9, adult inactive January 11, 2025 1:04am Urinary tract infection inactive J [facility] 2024 1:04am Adverse drug reaction deleted Troy e 2024 1:04am History of COVID-19 deleted January 11, 2025 1:04am Hyperglycemia due to type 2 diabetes mellitus deleted January 11 1:04am Asthma acute February 02 12:31pm Hypoxemia acute February 02 12:31pm Obstructive sleep apnea acute J dai 2024 12:31pm [facility] [employer] [facility] Work Phone: 1(944) 592-841904-11-2025 Evaluation note* Diagnosis Onset Date Resolution Status Admit Date Asthma acute October 30 12:32pm Hypoxemia acute October 30 12:32pm Obstructive sleep apnea acute A pril 2024 12:32pm Acute cystitis without hematuria res olved January 11, 2025 1:04am Leukocytosis resolved January 11 1:04am Nausea & vomiting resolved January 112024 1:04am Constipation inactive January 11 1:04am Morbid obesity with BMI of 45.0-49.9, adult inactive January 11, 2025 1:04am Urinary tract infection inactive J une 2024 1:04am Adverse drug reaction deleted Troy e 2024 1:04am History of COVID-19 deleted January 11, 2025 1:04am Hyperglycemia due to type 2 diabetes mellitus deleted January 11 1:04am Asthma acute February 02 12:31pm Hypoxemia acute February 02 12:31pm Obstructive sleep apnea acute J dai 2024 12:31pm Diabetes chronic February 04 11:09am High triglycerides chronic January 192024 11:09am Hypothyroidism chronic February 04, 2025 11:09am Obesity chronic February 04 11:09am [facility] Work Phone: [phone]) 131-193603-26-2025 Procedure notey [facility] Pulmonary Services/Neurology [address] [place] [address] MR#: [id number] Acct: [id number] Name: LEROY MONTEJO Rep #:[id number] : 1965 58 From: Alberto Qiu DO Referring Dr: Elsa José METEOROLOGY TEACHER-C Status: REG CLI Location: PSN Date: Sex: F C PSN 6 Minute Walk Test 6 Minute Walk Test 6 Minute Walk Test: 6 Minute Walk Test PSN:6-Minute Walk Test Start: 10/06/24 12:53 Freq: Status: Active Protocol: RESP.6MINW Document 10/06/24 12:53 EW (Rec: 10/06/24 12:57 EW [id number]) 6 Minute Walk Test Date Performed 10/06/24 Time Performed 12:30 Height 5 ft 1 in Weight: 240 lb Weight in Pounds 240.[address]: Rufener Assistive device None used: Pre-test Oxygen Delivery [...] Date Dictated: 10/14/24 1114 Date Transcribed: 10/14/241113 Lathe Sander: Dr. Alberto Qiu, Signed [facility]03-12-2025 Radiology Diagnostic study note [facility] Imaging Services [address] [place] [address] Foot min 3 Views MR#: [id number] Acct: [id number] Name: LEROY MONTEJO Rep #: [id number] : 1965 F 58 From: Robert Balderas MD PCP: DARLING KWAN Status: REG ER Study:Foot min 3 Views Date of Exam: 07/15 Exam# [id number] Ordering Dr: Margarita Mercado DO PROCEDURE: FOOT [...] of the calcaneus as above. Reading Location: [id number] CC: Steven Mercado DO; DARLING KWAN ~ Lathe Sander: Signed [facility]03-11-2025 Telephone encounter Note* Telephone Encounter - Rosa Cardenas RN - 09/29/2024 11:49 PM EDT Reason for Call: Pt c/o left foot pain she rates 9/10 and is diabetic. Outcome: Disposition- Go to ED now. Pt agreeable to go to [facility]. Reason for Disposition SEVERE pain Diabetes [...] fever. 10. : na. Protocols used: Foot Cwgf-BXLIN-FB, Diabetes - Foot Problems and Iijuvsuaa-IEGAF-HK [facility]03-11-2025 Miscellaneous Notes* Telephone Encounter - Rosa Cardenas RN - 09/29/2024 11:49 PM EDT Reason for Call: Pt c/o left foot pain she rates 9/10 and is diabetic. Outcome: Disposition- Go to ED now. Pt agreeable to go to [facility]. Reason for Disposition SEVERE pain Diabetes [...] fever. 10. : na. Protocols used: Foot Rbbk-EVIHA-CZ, Diabetes - Foot Problems and Zpnucmovy-MMPVC-CM documented in this encounterWilson [facility]03-07-2025 Telephone encounter Note * Telephone Encounter - Sridevi Connors RN - 09/25/2024 3:56 PM EST 09/25/2024 3:56 PM RN called patient to let her know the labs were reviewed by Thomas Montero CNP and said this: Hgb mild improvement from 2024 continue iron supplements Office number provided for call back should she have any questions or concerns. --Sridevi Connors RN [facility]03-07-2025 Miscellaneous Notes* Telephone Encounter - [...] 11:42 AM Received labs via fax from [facility]: --Sridevi Connors RN * Telephone Encounter - Bhupinder Huizar RN - 09/23/2024 2:23 PM EST Called and spoke to patient who was unaware that she needed lab order this week. Stated that she will be able to go to [facility] next week to get lab work completed. [...] Thank you! ALFONZO [place] documented in this encounterOSOhio[facility] Telephone encounter Note* Telephone Encounter - ELMER Jaquez - 09/25/2024 12:02 PM EST Hgb mild improvement from 2024 continue iron supplements [facility] Work Phone: [phone]) 445-6412041861-02-7219 Telephone encounter Note* Telephone Encounter - Sridevi Connors RN - 09/25/2024 11:42 AM EST Images from the original note were not included. 09/25/2024 11:42 AM Received labs via fax from [facility]: --Sridevi Connors RN [facility]03-06-2025 Evaluation note* Diagnosis Onset Date Resolution Status [...] 2025 12:38am Adverse drug reaction acute Troy e 2024 12:38am Constipation acute January 11, 12:38am History of COVID-19 acute January 11, 2025 12:38am Hyperglycemia due to type 2 diabetes mellitus acute January 11 12:38am Leukocytosis acute January 11, 025 12:38am Morbid obesity with BMI of 45.0-49.9, adult acute January 11, 2025 12:38am [facility] Work Phone: [phone]) 779-558503-06-2025 Evaluation note* Diagnosis Onset Date Resolution Status [...] without hematuria acu te January 11, 2025 1:04am Adverse drug reaction acute Troy e 2024 1:04am Constipation acute January 11, 2 025 1:04am History of COVID-19 acute January 11, 2025 1:04am Hyperglycemia due to type 2 diabetes mellitus acute January 11 1:04am Leukocytosis acute January 11, 2 025 1:04am Morbid obesity with BMI of 45.0-49.9, adult acute January 11, 2025 1:04am Nausea & vomiting acute January 112024 1:04am Urinary tract infection inactive J une 2024 1:04am [facility] Work Phone: [phone] 108-640203-05-2025 Telephone encounter Note* Telephone Encounter - Bhupinder Huizar RN - 09/23/2024 2:23 PM EST Called and spoke to patient who was unaware that she needed lab order this week. Stated that she will be able to go to [facility] next week to get lab work completed. Reminder in place to follow up with labs next week sometime [facility]03-05-2025 Telephone encounter Note* Telephone Encounter - Luz Maria Escudero - 09/23/2024 1:59 PM EST Patient returning call. She is requesting a call back. [facility]03-05-2025 Telephone encounter Note* Telephone Encounter - Jaziel Christy RN - 09/23/2024 12:30 PM EST Called patient to follow up on labs locally, upon chart review a repeat CBC was ordered to be done locally. No answer, LVM with call back number Awaiting pt call [facility]03-03-2025 Telephone encounter Note* Telephone Encounter - Supriya Stone RN - 09/21/2024 8:12 AM EST ----- Message from ALFONZO Epps sent at 08/27/2024 3:25 PM EST ----- Pt was seen in clinic 08/27/2024 - needs to have lab work locally on 09/21 or 09/22/2024 Local lab slip provided. Please ensure we received results. Thank you! 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 documented in this encounterCommunity Memorial Hospital02-13-2025 History and physical note* Velasquez Berry [...] x 2 DILATION AND CURETTAGE LAP CHOLECYSTECTOMY [facility] MEDICATIONS: Current Outpatient Medications Medication Instructions Albuterol [...] I, or a Nurse Practitioner or Physician's Activities Director Scouting had a Ayvu-wh-Steb Encounter with them. Based upon those findings, [...] C) TempSrc: Infrared Height: 1.549 m (5' 1") PREPROCEDURE PHYSICAL EXAM: GENERAL: Well appearing female, [...] Monitored Anesthesia Care. Velasquez Berry MD, MS Management Development Specialistbrush clearer surveying Division of Gastroenterology, Hepatology, and Nutrition [facility] Work Phone: 1([phone]) [phone] History and physical note* Velasquez Berry MD [...] x 2 DILATION AND CURETTAGE LAP CHOLECYSTECTOMY [facility] MEDICATIONS: Current Outpatient Medications Medication Instructions Albuterol [...] I, or a Nurse Practitioner or Physician's Activities Director Scouting had a Wxdi-rr-Jbse Encounter with them. Based upon those findings, [...] C) TempSrc: Infrared Height: 1.549 m (5' 1") PREPROCEDURE PHYSICAL EXAM: GENERAL: Well appearing female, [...] Monitored Anesthesia Care. Velasquez Berry MD, MS Management Development Specialistbrush clearer surveying Division of Gastroenterology, Hepatology, and Nutrition [facility] documented in this encounterCommunity Memorial Hospital02-13-2025 Miscellaneous Notes* Nursing Notes - Sylvie Rosenberg RN - 09/03/2024 1:00 PM EST Blood glucose 371 in pre-op. Dr. Gupta aware and ordered 8 units insulin Humalog which was administered at 1245. Per whitney Perez for patient to go into her procedure at 1300 and have the blood glucose re-checked at 1345. documented in this encounterCommunity Memorial Hospital02-13-2025 Nurse Note* Nursing Notes - Sylvie Rosenberg RN - 09/03/2024 1:00 PM EST Blood glucose 371 in pre-op. Dr. Gupta aware and ordered 8 units insulin Humalog which was administered at 1245. Per whitney Perez for patient to go into her procedure at 1300 and have the blood glucose re-checked at 1345. [facility]-13-2025 Note. MICRO - Microbiology PROCEDURE: Affirm [...] Locations *1: This test was performed at: [facility], [address] [place] [address], [facility] , [facility]02-06-2025 History of Present illness Narrative* Scott [...] retrieved. Clip (MR conditional) was placed. 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 - An endoclip was found in the stomach. Removal was successful. - Two gastric polyps (0.9-1.1 cm in the gastric antrum). Resected and retrieved. Clips (MR conditional) were placed. Clip it security analyst: [employer]. - 1.5cm post mucosectomy scar in the gastric body. Clips (MR conditional) were placed. Clip it security analyst: [employer]. - A hypoechoic irregular mass was [...] I, or a Nurse Practitioner or Physician's Activities Director Scouting had a Fdxv-qd-Hlqg Encounter with them. Based upon those findings, [...] x 2 DILATION AND CURETTAGE LAP CHOLECYSTECTOMY [facility] family history includes Breast Cancer (age of [...] resp. rate 18, height 1.549 m (5' 0.98"), weight 109.5 kg (241 lb 8 oz), [...] same LN that is referred to as "peripancreatic" on prior EGD/EUS.There is also evidence of [...] the discharge instructions. documented in this [facility] History of Present illness Narrative* Scott [...] retrieved. Clip (MR conditional) was placed. Clip it security analyst: [employer]. - An endoclip was found in the stomach. Removal was successful. - Two gastric polyps (0.9-1.1 cm in the gastric antrum). Resected and retrieved. Clips (MR conditional) were placed. Clip it security analyst: [employer]. - 1.5cm post mucosectomy scar in the gastric body. Clips (MR conditional) were placed. Clip it security analyst: [employer]. - A hypoechoic irregular mass was [...] I, or a Nurse Practitioner or Physician's Activities Director Scouting had a Hpve-lh-Zzba Encounter with them. Based upon those findings, [...] x 2 DILATION AND CURETTAGE LAP CHOLECYSTECTOMY [facility] family history includes Breast Cancer (age of [...] resp. rate 18, height 1.549 m (5' 0.98"), weight 109.5 kg (241 lb 8 oz), [...] same LN that is referred to as "peripancreatic" on prior EGD/EUS.There is also evidence of [...] every other day. documented in this [facility] History of Present illness Narrative* Scott [...] retrieved. Clip (MR conditional) was placed. 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 - An endoclip was found in the stomach. Removal was successful. - Two gastric polyps (0.9-1.1 cm in the gastric antrum). Resected and retrieved. Clips (MR conditional) were placed. 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 - 1.5cm post mucosectomy scar in the gastric body. Clips (MR conditional) were placed. 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 - A hypoechoic irregular mass was identified [...] well. She has been off pantoprazole since 1/10/25 (she has otherwise been on 40mg BID [...] I, or a Nurse Practitioner or Physician's Activities Director Scouting had a Fhhn-xd-Hfpb Encounter with them. Based upon those findings, [...] x 2 DILATION AND CURETTAGE LAP CHOLECYSTECTOMY [facility] family history includes Breast Cancer (age of [...] resp. rate 18, height 1.549 m (5' 0.98"), weight 109.5 kg (241 lb 8 oz), [...] same LN that is referred to as "peripancreatic" on prior EGD/EUS.There is also evidence of [...] mg every other day. documented in this encounterCommunity Memorial Hospital02-06-2025 Instructions* Patient Instructions* Supriya Stone RN - 08/27/2024 3:00 PM EST Return to clinic: RTC in [address] Berrios with labs and scans 1 week prior RN to please request colonoscopy report form 07/29/24 from [facility] RN to please print out the [...] survey regarding your care today at [facility]. We would appreciate if you could complete this short questionnaire as your feedback will help us improve future care of you, and others at our facility +++For labs, please note that if it is a walk-in lab, the lab appt will not show up on [employer]. In that case please keep a reminder in your calendar to get a lab draw on the same day of scans+++ Thank you for choosing [facility] for your cancer care. FMLA/Disability forms: Please [...] you have questions or concerns, please call [phone]. documented in this [facility]02-06-2025 Instructions* Patient Instructions* Supriya Stone RN - 08/27/2024 3:00 PM EST Return to clinic: RTC in [address] Berrios with labs and scans 1 week prior RN to please request colonoscopy report form 07/29/24 from [facility] RN to please print out the [...] survey regarding your care today at [facility]. We would appreciate if you could complete this short questionnaire as your feedback will help us improve future care of you, and others at our facility +++For labs, please note that if it is a walk-in lab, the lab appt will not show up on [employer]. In that case please keep a reminder in your calendar to get a lab draw on the same day of scans+++ Thank you for choosing [facility] for your cancer care. FMLA/Disability forms: Please [...] you have questions or concerns, please call [phone]. documented in this encounterCommunity [facility] Hospital02-06-2025 Instructions* Patient Instructions* Supriya Stone RN - 08/27/2024 3:00 PM EST Return to clinic: RTC in [address] Berrios with labs and scans 1 week prior RN to please request colonoscopy report form 07/29/24 from [facility] RN to please print out the [...] survey regarding your care today at [facility]. We would appreciate if you could complete this short questionnaire as your feedback will help us improve future care of you, and others at our facility +++For labs, please note that if it is a walk-in lab, the lab appt will not show up on [employer]. In that case please keep a reminder in your calendar to get a lab draw on the same day of scans+++ Thank you for choosing [facility] for your cancer care. FMLA/Disability forms: Please [...] you have questions or concerns, please call [phone]. documented in this encounterOSOhio[facility]-06-2025 Miscellaneous Notes* Addendum Note - Scott Berrios MD, MPH - 08/27/2024 3:00 PM ESTAddended by: SCOTT BERRIOS on: 08/28/2024 08:29 AM Modules accepted: Orders documented in this encounterOSOhiohealth [facility]02-06-2025 Miscellaneous Notes* Addendum Note - Scott Berrios MD, MPH - 08/27/2024 3:00 PM ESTAddended by: SCOTT BERRIOS on: 08/28/2024 08:29 AM Modules accepted: Orders * Addendum Note - Scott Berrios MD, MPH - 08/27/2024 3:00 PM ESTAddended by: SCOTT BERRIOS on: 09/04/2024 12:21 PM Modules accepted: Orders documented in this encounterOSOhiohealth [facility]02-06-2025 Note* Addendum Note - Scott Berrios MD, MPH - 08/27/2024 3:00 PM ESTAddended by: SCOTT BERRIOS on: 08/28/2024 08:29 AM Modules accepted: [facility]02-06-2025 Note* Addendum Note - Scott Berrios MD, MPH - 08/27/2024 3:00 PM ESTAddended by: SCOTT BERRIOS on: 08/28/2024 08:29 AM Modules accepted: Orders [facility]02-06-2025 Note* Addendum Note - Scott Berrios MD, MPH - 08/27/2024 3:00 PM ESTAddended by: SCOTT BERRIOS on: 09/04/2024 12:21 PM Modules accepted: Orders [facility]01-10-2025 Telephone encounter Note* Telephone Encounter [...] Again, patient verbalizes understanding. --Sridevi Connors RN [facility]01-10-2025 Miscellaneous Notes* Telephone Encounter - Sridevi [...] chart account. Again, patient verbalizes understanding. --Sridevi Seifried, RN * Telephone Encounter - David Drake - 07/31/2024 9:07 AM EST Pt is rescheduled for CT on 08/14 due to it aligning better for transportation. She also asked if Dr. Berrios could send her paper work on why she eis unable to work at this time. Stated they talked about this at her last appt. Please advise. documented in this encounterOSU [facility]01-10-20[facility] Telephone encounter Note* Telephone Encounter - David Drake - 07/31/2024 9:07 AM EST Pt is rescheduled for CT on 08/14 due to it aligning better for transportation. She also asked if Dr. Berrios could send her paper work on why she eis unable to work at this time. Stated they talked about this at her last appt. Please advise. [facility]01-09-[facility] History of Present illness Narrative* Scott Berrios MD, MPH - 07/30/2024 2:00 PM EST HISTORY OF PRESENT ILLNESS: Ms. Leroy Mnotejo is a 58 y.o. female with history [...] retrieved. Clip (MR conditional) was placed. Clip it security analyst: [employer]. - An endoclip was found in the stomach. Removal was successful. - Two gastric polyps (0.9-1.1 cm in the gastric antrum). Resected and retrieved. Clips (MR conditional) were placed. Clip it security analyst: [employer]. - 1.5cm post mucosectomy scar in the gastric body. Clips (MR conditional) were placed. Clip it security analyst: [employer]. - A hypoechoic irregular mass was [...] x 2 DILATION AND CURETTAGE LAP CHOLECYSTECTOMY [facility] family history includes Breast Cancer (age of [...] resp. rate 16, height 1.552 m (5' 1.1"), weight 106.4 kg (234 lb 8 oz), [...] the discharge instructions. documented in this [facility]01-09-20[facility] History of Present illness Narrative* Scott [...] retrieved. Clip (MR conditional) was placed. 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 - An endoclip was found in the stomach. Removal was successful. - Two gastric polyps (0.9-1.1 cm in the gastric antrum). Resected and retrieved. Clips (MR conditional) were placed. Clip it security analyst: [employer]. - 1.5cm post mucosectomy scar in the gastric body. Clips (MR conditional) were placed. 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 - A hypoechoic irregular mass was identified [...] x 2 DILATION AND CURETTAGE LAP CHOLECYSTECTOMY [facility] family history includes Breast Cancer (age of [...] resp. rate 16, height 1.552 m (5' 1.1"), weight 106.4 kg (234 lb 8 oz), [...] with the discharge instructions. documented in this encounterCommunity Memorial Hospital01-09-2025 Instructions* Patient Instructions* Scott Berrios MD, MPH - 07/30/2024 2:00 PM EST Please do not take pantoprazole until Aug 14. You can resume on Aug 14 after your labs on Aug 13. Please request the EGD report from 04/04/24 from [facility]. Labs and CT A/P on Aug 13 RTC on Aug 27. No labs needed that day. RN to please print and mail my signed clinic note to the patient documented in this encounterCommunity Memorial Hospital01-09-2025 Instructions* Patient Instructions* Scott Berrios MD, MPH - 07/30/2024 2:00 PM EST Please do not take pantoprazole until Aug 14. You can resume on Aug 14 after your labs on Aug 13. Please request the EGD report from 04/04/24 from [facility]. Labs and CT A/P on Aug 13 RTC on Aug 27. No labs needed that day. RN to please print and mail my signed clinic note to the patient documented in this encounterOSU [facility]01-09-2025 Miscellaneous Notes* Addendum Note - Scott Berrios MD, MPH - 07/30/2024 2:00 PM ESTAddended by: SCOTT BERRIOS on: 07/31/2024 10:25 AM Modules accepted: Orders documented in this encounterOSOhiohealth [facility]01-09-2025 Note* Addendum Note - Scott Berrios MD, MPH - 07/30/2024 2:00 PM ESTAddended by: SCOTT BERRIOS on: 07/31/2024 10:25 AM Modules accepted: Orders [facility]01-09-[facility] History of Present illness Narrative* Gia Kilgore RN - 07/30/2024 11:47 AM EST I received handoff from Sandy. After review of the chart, there are no current complex case management needs at this time, Please re-consult if new needs arise. Gia ELMORE casino cage supervisor [facility] Pager: [phone] grain processor Line: [phone] documented in this encounterCommunity Memorial Hospital01-09-2025 History of Present illness Narrative* Karolina Piedra, MUTTON PUNCHER-DESIZING MACHINE OFFBEARER, DNP - 07/30/2024 11:45 AM EST Chief Complaint: Chief Complaint Patient presents with Follow-up History of Present Illness: Ms. Montejo is a 58 y.o. 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 She presents to [facility] clinic for follow up [...] C/o occasional constipation. Had colonoscopy yesterday at [facility] - she was not prepped enough so [...] (Infrared) Resp 16 Ht 1.552 m (5' 1.1") Comment: with shoes Wt 106.4 kg (234 [...] MCV 81.4 05/07/2024 No results found for: "CEA", "CEAPRESHAMA", "CEANEWMETHOD" No results found for: "CA125" Lab Results Component Value Date ALT 21 [...] office ifthey had further questions. Total time DESIZING MACHINE OFFBEARER spent prior to patient visit obtaining and reviewing records, and with patient reviewing HPI, pertinent medical, surgical and social history and conducting physical exam: 25 minutes. Karolina Piedra, DNP, MUTTON PUNCHER-DESIZING MACHINE OFFBEARER Nurse Practitioner, GI Surgical Oncology Attending Physician Note I interviewed and examined this patient with the METEOROLOGY TEACHER/fellow/resident. I reviewed the history and exam detailed [...] needed. Blas Rod MD documented in this encounterOSOhiohealth [facility]01-08-2025 [facility]01-07-2025 Evaluation note* Diagnosis Onset Date Resolution Status Admit Date NAFLD (nonalcoholic fatty li giovanna disease) chronic July 28 10:12am Neuroendocrine tumor chronic William miriam2024 10:12am Gastroparesis acute July 12:24pm Neuroendocrine tumor chronic William miriam 2024 12:24pm Asthma acute September 04, 2024 12:37pm Hypoxemia acute September 04, 2024 12:37pm Obstructive sleep apnea acute F ebruary 2024 12:37pm Diabetes chronic September 24 1:02pm High triglycerides chronic September 24, 2024 1:02pm Hypertension chronic September 24, 2 025 1:02pm Hypothyroidism chronic September 24, 2024 1:02pm Neuropathy chronic September 24 1:02pm Obesity chronic September 24 1:02pm [facility] Work Phone: 1(979) 913-729501-07-2025 Evaluation note* Diagnosis Onset Date Resolution Status Admit Date NAFLD (nonalcoholic fatty li giovanna disease) chronic July 28 10:12am Neuroendocrine tumor chronic William miriam2024 10:12am Gastroparesis acute July 12:24pm Neuroendocrine tumor [...] sleep apnea acute A pril 2024 12:32pm [facility] Work Phone: 1(235) 251-933412-03-2024 Nurse Surgical operation note* Kam Manjarrez RN - 06/23/2024 3:19 PM EST ok to DC. IV removed. DC teaching reviewed. Pt declines help getting dressed. Family present. [facility]20[facility] Nurse Note* Kam Manjarrez RN - 06/23/2024 3:19 PM EST ok to DC. IV removed. DC teaching reviewed. Pt declines help getting dressed. Family present. documented in this encounterOSOhiohealth [facility]2024 History and physical note* Blas Merrill [...] x 2 DILATION AND CURETTAGE LAP CHOLECYSTECTOMY [facility] MEDICATIONS: Current Outpatient Medications Medication Instructions Albuterol [...] using Monitored Anesthesia Care. Blas Merrill MD [facility]2024 History and physical note* Blas [...] x 2 DILATION AND CURETTAGE LAP CHOLECYSTECTOMY [facility] MEDICATIONS: Current Outpatient Medications Medication Instructions Albuterol [...] Care. Blas Merrill MD documented in this encounterOSU [facility] [id number] Evaluation note * Diagnosis Onset Date Resolution [...] September 24 1:02pm Obesity September 24 1:02pm [facility] Work Phone: 1(135) 164-457411-01-2024 Note. MICRO - Microbiology PROCEDURE: Urine Culture [*1] SOURCE: Urine, Clean Catch BODY SITE: COLLECTED DATE/TIME: 05/21/2024 09:24 EDT RECEIVED DATE/TIME: 05/21/2024 16:13 EDT START DATE/TIME: 05/21/2024 16:14 EDT FREE TEXT SOURCE: FINAL REPORTS Final Report [] Verified Date/Time/Personnel: 05/22/2024 14:03 EDT 50,000 - 100,000 cfu/ml Mixed growth consistent with normal urogenital keiko. Performing Locations *1: This test was performed at: [facility], [address] [place] [address], [facility] , [facility]10-17-2024 History and physical note* Karolina Piedra, KHADIJAH-DESIZING MACHINE OFFBEARER, DNP - 05/07/2024 8:30 AM EDT Images [...] to use CPAP). She presents to [facility] Oncology clinic for surgical evaluation [...] x 2 DILATION AND CURETTAGE LAP CHOLECYSTECTOMY [facility] Allergies Allergen Reactions Bactrim [Sulfamethoxazole-Trimethoprim] Blisters Codeine [...] Resource Strain: Low Risk (02/08/2021) Received from [facility] Overall Financial Resource Strain (CARDIA) Difficulty of Paying Living Expenses: Not very hard Food Insecurity: No Food Insecurity (02/08/2021) Received from [facility] Hunger Vital Sign Worried About Running Out of Food in the Last Year: Never true Ran Out of Food in the Last Year: Never true Transportation Needs: No Transportation Needs (02/08/2021) Received from [facility] PRAPARE - Transportation Lack of Transportation (Medical): No Lack of Transportation (Non-Medical): No Physical Activity: Inactive (02/08/2021) Received from [facility] Exercise Vital Sign Days of Exercise per Week: 0 days Minutes of Exercise per Session: 0 min Stress: Not on file Social Connections: Socially Isolated (02/08/2021) Received from [facility] Social Connection and Isolation Panel [NHANES] Frequency of Communication with Friends and Family: Twice a week Frequency of Social Gatherings with Friends and Family: Twice a week Attends Mandaen Services: Never Active Member of Clubs or [...] (Infrared) Resp 18 Ht 1.523 m (4' 11.96") Comment: w/o shoes Wt 107.5 kg (237 [...] MCV 81.4 05/07/2024 No results found for: "HGBA1C" Lab Results Component Value Date ALT 21 05/07/2024 AST 22 05/07/2024 ALKPHOS 125 05/07/2024 BILITOTAL 0.5 05/07/2024 Tumor Markers: No results found for: "CEA", "CA199", "AFPTMRMKR", "CHROMOGRANA", "CA125" Radiographic/ Diagnostic evaluation: CT abd/p OSH 04/03/2024: [...] office with any further questions. Total time DESIZING MACHINE OFFBEARER spent prior to patient visit obtaining and reviewing records, and with patient reviewing HPI, pertinent medical, surgical and social history and conducting physical exam: 25 minutes. Karolina Piedra DNP, ELMER Nurse Practitioner, GI Surgical Oncology [facility]10-17-2024 History and physical note* ELMER [...] to use CPAP). She presents to [facility] clinic for surgical evaluation [...] x 2 DILATION AND CURETTAGE LAP CHOLECYSTECTOMY [facility] Allergies Allergen Reactions Bactrim [Sulfamethoxazole-Trimethoprim] Blisters Codeine [...] Resource Strain: Low Risk (02/08/2021) Received from [facility] Overall Financial Resource Strain (CARDIA) Difficulty of Paying Living Expenses: Not very hard Food Insecurity: No Food Insecurity (02/08/2021) Received from [facility] Hunger Vital Sign Worried About Running Out of Food in the Last Year: Never true Ran Out of Food in the Last Year: Never true Transportation Needs: No Transportation Needs (02/08/2021) Received from [facility] PRAPARE - Transportation Lack of Transportation (Medical): No Lack of Transportation (Non-Medical): No Physical Activity: Inactive (02/08/2021) Received from [facility] Exercise Vital Sign Days of Exercise per Week: 0 days Minutes of Exercise per Session: 0 min Stress: Not on file Social Connections: Socially Isolated (02/08/2021) Received from [facility] Social Connection and Isolation Panel [NHANES] Frequency of Communication with Friends and Family: Twice a week Frequency of Social Gatherings with Friends and Family: Twice a week Attends Mandaen Services: Never Active Member of Clubs or [...] (Infrared) Resp 18 Ht 1.523 m (4' 11.96") Comment: w/o shoes Wt 107.5 kg (237 [...] MCV 81.4 05/07/2024 No results found for: "HGBA1C" Lab Results Component Value Date ALT 21 05/07/2024 AST 22 05/07/2024 ALKPHOS 125 05/07/2024 BILITOTAL 0.5 05/07/2024 Tumor Markers: No results found for: "CEA", "CA199", "AFPTMRMKR", "CHROMOGRANA", "CA125" Radiographic/ Diagnostic evaluation: CT abd/p OSH 04/03/2024: [...] office with any further questions. Total time DESIZING MACHINE OFFBEARER spent prior to patient visit obtaining and reviewing records, and with patient reviewing HPI, pertinent medical, surgical and social history and conducting physical exam: 25 minutes. Karolina Piedra DNP, KHADIJAH-ALEXEI Nurse Practitioner, GI Surgical Oncology documented in this encounterOSU [facility]10-17-20[facility] History of Present illness Narrative* Blas [...] or concerns arise. documented in this encounterOSU [facility]10-17-2024 Instructions* Patient Instructions* Mari Kaba RN - 05/07/2024 8:30 AM EDT Survey Following your visit today, you may receive a survey via text or email asking about your experience. We are always looking for ways to improve your visit. Please share your feedback and comments withus- We would love to hear from you! Medicaid Managed Care Plan Transportation Scheduling Line ([phone]) Call Sandy, telephonic nurse case manager, with questions or issues [phone] documented in this encounterCommunity Memorial Hospital10-15-2024 Note* Exam Date Time Procedure Performing Provider Status 05/05/24 8:35 AM Echocardiogram, Adult - CV Auth (Verified) [facility] 09-17-2024 [facility]09-09-2024 Hospital Discharge instructions Patient Education 03/30/2024 03:45:06 [...] bent back when typing. You may use tpbi-rcj-hkaoeqk pain medicine to treat pain and inflammation, [...] Your whole arm becomes swollen or weak [id number] [employer]. [address] [place] [address]. All rights reserved. This information is not intended as a substitute for professional medical care. Always follow yourhealthcare professional's instructions. Follow Up Care 03/30/2024 02:46:19 With:VERO ORTEZ Address: [address] [place] [phone]- [phone] When:2-4 days [facility] 09-09-2024 Note Discharge Instructions Thank you for allowing [facility] to assist you with your healthcare needs. The following is importantdischarge information regarding your hospital visit. Diagnosis from Today's Visit Wrist pain What to Do Next Instructions from Your Care Team No qualifying data available. Post Acute Orders No qualifying data available. You Need to Schedule the Following Appointments Follow Up with VERO ORTEZ When:Within 2-4 days Where:[address] [place] [phone]- [phone] Allergies Bactrim Blisters codeine Swelling penicillin Rash [...] bent back when typing. You may use whcm-ezi-unldlqu pain medicine to treat pain and inflammation, [...] Your whole arm becomes swollen or weak [phone] [employer]. [address] [place] [address], [place] [address]. All rights reserved. This information is not intended as a substitute for professional medical care. Always follow yourhealthcare professional's instructions. Additional Information VACCINATE! IT SAVES LIVES! Members of the community who have not yet received the COVID-19 vaccine and would like to receive it can visit one of [facility] vaccine clinics. There are many vaccine clinic locations within the [facility]. For locations and available times, please visit [email or web address]/. It is important to note that some COVID mobile vaccine clinics are held outdoors and may be canceled in rainy or stormy conditions. To learn more about pediatric vaccinations (ages 5-11), we invite you to visit the [facility] webpage. https://www.[email or web address].org/pages/7638-Guyzi-Sxfqkkqoxyh-Mwhwcccxip-Nojup-Ddr stions.htmlTo learn more about the COVID-19 vaccine, we invite you to visit the CDC website for a list of frequently asked questions. https://www.cdc.gov/coronavirus/2019-ncov/vaccines/faq.html [facility] Patient Portal Access Instructions: Stay connected with your healthcare team and access your personal medical information anytime with the [employer] Patient Portal. If you would like a full copy of your medical records please contact the [facility] Medical Records Department Saturday through Saturday between 8a.m. and 4:30p.m. Please follow the directions below to access the portal: 1.Access the email account you provided upon registration to the [facility].2.Look for an invitation email from [facility].3.Open the email and access the invitation link: Accept Invitation to [facility]4.Fill in the required hatch to create your account. Sign into [email or web address] with your username and password that you [...] you will allow to register on the [facility] Patient Portal for access to your information. You can also access the [facility] Patient Portal on the [employer]. Simply click on "Health Records" under "HealthData" and then click on the [employer] logo. HOW TO SAFELY DISPOSE OF PRESCRIPTION [...] Call your local pharmacy or go to [email or web address] Carpooling [email or web address] to find one close to you.3.Make use of household items: Use cat litter or old coffee grounds to dispose medications if other options arenot available. Mix your drugs with these household products, seal them in an airtight container andthrow it into the garbage. Call [facility]: [phone] to be sure your drugs can be [...] been reviewed and explained to me and IGUSTABO TERESA J understand my current condition and have read and understand these discharge instructions. I have received a written copy of the plan/instructions. If I have questions, I am aware that I should contact my doctor. Patient/Rn Teacher Signature: Date/Time: Relationship to Patient: Witness Name/Signature: Date/Time: [facility]09-09-2024 Note ORIGINAL EXAMINATION: THREE XRAY VIEWS [...] Date: 03/30/2024 3:29:35 AM Ordering Provider[facility] Note. MICRO - Microbiology PROCEDURE: Urine Culture [...] Locations *1: This test was performed at: [facility], [address] [place] [address], [facility] , [facility] ([place])03-16-2024 Note ORIGINAL EXAMINATION: ONE SUPINE XRAY VIEW(S) [...] Sign Date: 03/16/2024 9:06:05 AM Ordering Provider: [facility]08-17-2024 [facility]08-08-2024 Note. MICRO - Microbiology PROCEDURE: Urine Culture [O1 *1] SOURCE: Urine BODY SITE: COLLECTED DATE/TIME: 02/25/2024 09:25 EDT RECEIVED DATE/TIME: 02/25/2024 16:13 EDT START DATE/TIME: 02/25/2024 16:13 EDT FREE TEXT SOURCE: FINAL REPORTS Final Report [] Verified Date/Time/Personnel: 02/27/2024 08:58 EDT >100,000 cfu/ml Escherichia coli Refer to previous culture for susceptibility. [id number] >100,000 cfu/ml Escherichia coli #2 Refer to previous culture for susceptibility. [id number] PRELIMINARY REPORTS Preliminary Report [] Verified Date/Time/Personnel: 02/26/2024 12:09 EDT Culture results pending. SUSCEPTIBILITY RESULTS Escherichia coli Antibiotic SHAHEEN Dilut SHAHEEN Inter ID Panel Not Not Applicable Applicable Escherichia coli #2 Antibiotic SHAHEEN Dilut SHAHEEN Inter ID Panel Not Not Applicable Applicable Order Comments O1: Urine Culture Added by Discern Performing Locations *1: This test was performed at: [facility], [address] [place] [address], [id number] , [facility] ([facility]02-27-2024 Note. MICRO - Microbiology PROCEDURE: Urine Culture [...] Locations *1: This test was performed at: [facility], [facility] [address] [place] [address], [id number]- , [facility] ([place])02-25-2024 Hospital Discharge instructions Patient Education 02/25/2024 14:12:06 [...] out oCatheter stops draining for 6 hours [id number] [employer]. [address] [place] [address]. All rights reserved. This information is not [...] keep having episodes of high blood sugar. [id number] [employer]. [address] [place] [address]. All rights reserved. This information is not intended as a substitute for professional medical care. Always follow yourhealthcare professional's instructions. Follow Up Care 02/25/2024 09:01:39 With:VERO ORTEZ Address: [address] [place] [phone] When:2-4 days [facility] 08-06-2024 Note Discharge Instructions Thank you for allowing [facility] to assist you with your healthcare needs. The following is importantdischarge information regarding your hospital visit. Diagnosis from Today's Visit Hyperglycemia UTI - Urinary tract infection What to Do Next Instructions from Your Care Team No qualifying data available. Post Acute Orders No qualifying data available. You Need to Schedule the Following Appointments Follow Up with VERO ORTEZ When:Within 2-4 days Where:[address] [place] [phone] Allergies Bactrim Blisters codeine Swelling penicillin Rash [...] out oCatheter stops draining for 6 hours 7844-5160 [employer]. [address] [place] [address], [place] [address]. All rights reserved. This information is not [...] Carry a medical ID card or a Zinwave drive. Or wear a medical alert bracelet [...] keep having episodes of high blood sugar. 7832-1426 [employer]. [address] [place] [address], [place] [address]. All rights reserved. This information is not intended as a substitute for professional medical care. Always follow yourhealthcare professional's instructions. Additional Information VACCINATE! IT SAVES LIVES! Members of the community who have not yet received the COVID-19 vaccine and would like to receive it can visit one of [facility] vaccine clinics. There are many vaccine clinic locations within the [facility]. For locations and available times, please visit www.gettheshot.coronavirus.[place].gov/. It is important to note that some COVID mobile vaccine clinics are held outdoors and may be canceled in rainy or stormy conditions. To learn more about pediatric vaccinations (ages 5-11), we invite you to visit the [facility] webpage. https://www.Skicka Tårtas.org/pages/0750-Dojjz-Nwoqsgxwugq-Zwcqudtvbz-Raluv-Inp stions.htmlTo learn more about the COVID-19 vaccine, we invite you to visit the CDC website for a list of frequently asked questions. https://www.cdc.gov/coronavirus/2019-ncov/vaccines/faq.html [facility] Patient Portal Access Instructions: Stay connected with your healthcare team and access your personal medical information anytime with the [facility] Patient Portal. If you would like a full copy of your medical records please contact the [facility] Medical Records Department Saturday through Saturday between 8a.m. and 4:30p.m. Please follow the directions below to access the portal: 1.Access the email account you provided upon registration to the hospital.2.Look for an invitation email from [facility].3.Open the email and access the invitation link: Accept Invitation to [facility]4.Fill in the required hatch to create your account. Sign into [email or web address] with your username and password that you [...] you will allow to register on the [facility] Patient Portal for access to your information. You can also access the [facility] Patient Portal on the Fitfu bong. Simply click on "Health Records" under "Engagement [email or web address]" and then click on the TutorDudes logo. HOW TO SAFELY DISPOSE OF PRESCRIPTION [...] Call your local pharmacy or go to http://[email or web address] Carpooling [email or web address] to find one close to you.3.Make use of household items: Use cat litter or old coffee grounds to dispose medications if other options arenot available. Mix your drugs with these household products, seal them in an airtight container andthrow it into the garbage. Call [facility]: [phone] to be sure your drugs can be [...] reviewed and explained to me and I,LEROY MONTEJO understand my current condition and have read and understand these discharge instructions. I have received a written copy of the plan/instructions. If I have questions, I am aware that I should contact my doctor. Patient/Rn Teacher Signature: Date/Time: Relationship to Patient: Witness Name/Signature: Date/Time: [facility]-06-2024 Note ORIGINAL EXAMINATION: CT OF THE [...] Sign Date: 02/25/2024 12:00:15 PM Ordering Provider: [facility]06-27-2024 Note. MICRO - Microbiology PROCEDURE: Urine Culture [...] Locations *1: This test was performed at: [facility], [address] [place] [address], [facility] , [facility] ([place])08-19-2023 Evaluation + Plan note Future Scheduled Tests Radiology* US Abdomen Complete 08/19/23 [facility] 12-12-2023 History of Present illness Narrative* Melissa Cabrales, OD - 07/02/2023 10:30 AM EST 1. Dry eye syndrome of bilateral lacrimal glands Patient had good success with dissolvable plugs Instilled permanent [place] plugs (0.4mm RLL, 0.5mm LLL) 2. Punctate keratitis of right eye Continue gel nightly and artificial tears 2-3x daily 3. Type 2 diabetes mellitus without retinopathy (HCC) Monitor 4. Regular astigmatism of both eyes 5. Presbyopia Reprinted spec rx Follow-up in 8 months for Diabetic eye exam and dry eye follow-up Melissa Cabrales, OD July 02, 2023 10:30 AM documented in this encounterWilson Memorial Hospital11-07-2023 Miscellaneous Notes* Telephone Encounter - Alison Rogel RN - 05/28/2023 2:30 PM EST Triage Protocol Advised: See provider within 24 hours for evaluation. This nurse recommended pt be evaluated today. Pt agreeable to EC today. Reason for Disposition Blood in urine (red, pink, or tea-colored) Answer Assessment - Initial Assessment Questions Pt contacted for triage of sx's: lower abdominal pain and pressure, "pink tinged urine" or blood inurine. Also has abd pressure and occasional burning with urination. Began 1-2 days ago. History of UTIs, most recently about a month ago, was treated with 2 antibiotics and improved. Pt states she does not think this is vaginal bleeding. Pt reports she has a Ameena. Saw BACK TENDER PULP DRIER within last week. Se contacted BACK TENDER PULP DRIER and they advised contacting PCP of sx's. [...] -has fatigue 11. : Has Svetlana, saw flow nurse last week Protocols used: Abdominal Pain - Uiwyyb-DAPPW-QO documented in this encounterWilson Memorial Hospital10-27-2023 Instructions* Patient Instructions* Merna Krueger, KHADIJAH.DESIZING MACHINE OFFBEARER - 05/17/2023 11:34 AM EDT PATIENT PREOPERATIVE INSTRUCTIONS Rosamaria Caruso MD has scheduled you for your procedure at this surgery center: [facility]: [phone] -- [address] [facility] [address]. Please read below carefully for your personalized [...] 100,000 unit/mL suspension IF needed DEXCOM G7 HEALTH ADVOCATE misc DEXCOM G7 SENSOR nelly phenazopyridine (PYRIDIUM) 200 mg tablet IF needed pantoprazole DR (PROTONIX) 40 mg tablet Take the day of surgery with a small sip of water NOVOLOG FLEXPEN U-100 INSULIN 100 unit/mL (3 mL) Do not take the day of surgery meloxicam (MOBIC) 15 mg tablet Stop 7 days before surgery insulin needles, DISPOSABLE, (PEN NEEDLE) 31 gauge x 5/16" lisinopril 2.5 mg tablet Do not take [...] Procedures: - YOU MUST HAVE A RESPONSIBLE PULMONARY CARE NURSE TAKE YOU HOME. A ATTENDING PATHOLOGIST OR BROKER ASSISTANT CANNOT BE MADE A RESPONSIBLE PULMONARY CARE NURSE. - We recommend that a responsible person [...] Advance Directive, please fax a copy to [phone] or email to for it to be [...] day. Merna Krueger APRN.CNP documented in this encounterWilson Memorial Hospital10-27-2023 History and physical note * Merna [...] Value 02/18/2023 10.8 04/17/2023 Jaziel Drake CNP, [facility] Colitis Assessment: hx, recent hospitalization 04/18/2023-04/20/2023 Below copied from [facility]: Chief Complaint: Abd Pain Informant: patient [...] Stable - Continue with home medications DVT: [facility] Course: Per HPI: LEROY MONTEJO, is a 57 F who presented to the emergency department at [facility] due to abdominal pain that was [...] obesity aswell as sleep apnea and diastolic CHF/JML-43-hpgq-old female presented to the hospital with abdominal [...] large neck Non-male patient STOP-Bang Score: 7 [id number] Score: Age: <65 Sex: female CHF history: Yes Hypertension history: Yes Stroke/TIA/thromboembolism history: No Vascular disease history: No Diabetes history: Yes [id number] Score: 4 ARISCAT Score: Age: 51-80 Preoperative [...] and consent discussed: yes. Patient / Responsible Alliance Party agrees to proceed: yes Patient / [...] Morbid Obesity With Bmi of 50.0-59.9, Adult ([facility]) Occult Blood Positive Stool Irritability Essential Hypertension [...] and peripheral neuropathy. Negative for: cerebral palsy, PIANO AND ORGAN REFINISHER tumor, dementia, impaired sensorium, multiple sclerosis, Parkinson's disease, seizures, TIA and strokes. Respiratory: Positive for: obstructive sleep apnea and CPAP/BiPAP compliant. Negative for: asthma, COPD, pneumonia within 6 weeks, tobacco use and URI < 2 weeks. Cardiovascular: Positive for: CHF (on rx), hyperlipidemia and hypertension Negative for: anticoagulation therapy, arrhythmia, atrial fibrillation, CAD, chest pain, congenitalheart defect, DVT/PE, recent TN, murmur/valvular heart disease, PVD, open heart surgery and valve surgery. GI: Positive for: GERD and inflammatory bowel disease (hx colitis) Negative for: abdominal pain, dysphagia, hepatitis, irritable bowel syndrome, liver disease, nausea, pancreatitis, vomiting and ETOH >2 drinks/day. : Positive for: nephrolithiasis (remote hx), renal failure and urinary tract infection (recurrent). Patient's renal failure is chronic. Negative for: urinary incontinence. BACK TENDER PULP DRIER: Negative for abnormal vaginal bleeding, abnormal vaginal [...] daily until gone. Taking Yes DEXCOM G7 HEALTH ADVOCATE misc Taking Yes DEXCOM G7 SENSOR nelly [...] needles, DISPOSABLE, (PEN NEEDLE) 31 gauge x 5/16" Use one needle 3-4 times daily with [...] 94 Temp (Src) 97.5 (Temporal) Ht 5' 1" (1.55m) Wt 265 lb (120.2kg) SpO2 98% [...] or any previous visit (from the past 51614 hour(s)). Prepared for Surgery: optimally prepared for [...] 11:33 AM PAGER/CONTACT #: documented in this encounterWilson Memorial Hospital10-17-2023 History of Present illness Narrative* Yessy [...] 4 times daily until gone. DEXCOM G7 HEALTH ADVOCATE misc DEXCOM G7 SENSOR nelly APPLY 1 [...] needles, DISPOSABLE, (PEN NEEDLE) 31 gauge x 5/16" Use one needle 3-4 times daily with [...] C (89 F), height 154.9 cm (5' 1"), weight 120.9 kg (266 lb 9.6 oz), [...] mail. Yessy White PA-C documented in this encounterWilson Memorial Hospital10-17-2023 Nurse Note* Saundra Qiu LPN - [...] 2017 Saundra Qiu LPN documented in this encounterWilson Memorial Hospital10-13-2023 History of Present illness Narrative* Papa Douglass MD - 05/03/2023 10:00 AM EDT Chief Complaint Patient presents with: Hospital F/U Immunizations: Flu vaccination HPI Leroy Montejo is a 57 year old female who presents here today for Hospital Discharge Follow up.. Pt was admitted to [facility] on 04/18/23 with c/o abdominal [...] wondering if she needs to see a billposting supervisor, hospitalist said she had stage 1 renal failure, Endo Dr. Cervantes said CKD Stage 3. Blood sugars have been running 300 to 400. She did not restart her CPAP machine. Oxygen had improved before being discharged, was not d/c with any prescription Oxygen, was not needed. Below copied from [facility]: Chief Complaint: Abd Pain Informant: patient [...] Stable - Continue with home medications DVT: Lovenox Hospital Course: Per HPI: LEROY MONTEJO, is a 57 F who presented to the emergency department at [facility] due to abdominal pain that was [...] obesity aswell as sleep apnea and diastolic CHF/EVY-21-haxf-old female presented to the hospital with abdominal [...] Prior to Visit Medication Sig DEXCOM G7 HEALTH ADVOCATE misc DEXCOM G7 SENSOR nelly APPLY 1 [...] needles, DISPOSABLE, (PEN NEEDLE) 31 gauge x 5/16" Use one needle 3-4 times daily with [...] on 06/06/2028 Depression Assessment Completed Data reviewed [facility] reports from 04/18 to 04/20 [...] Follows with Endo No need to see Solar System Designer at this point 7. Encounter for screening [...] Past Histories independently gathered by the clinical residential direct support professional and the remaining scribed note accurately describes [...] AM. Cecilia Lopez Ma documented in this encounterWilson Memorial Hospital10-11-2023 Miscellaneous Notes* Telephone Encounter - Trena [...] MELA MURPHY Pharmacy Information Pharmacy Address Telephone [id number] [address] [place] [address] Trena Narvaez RN * Telephone Encounter - [...] Saturday. Natalya Osman RN documented in this encounterWilson Memorial Hospital09-30-2023 Discharge summary Author Sergo Bustillos [facility] April 20, 2023 10:09am Note Date/Time April 20, 2023 9:45am [facility] Medical Records Department [address] [place] [address] Instructions for Home/Discharge Instructions 04/20/23 0944 MR#: [id number] Acct: [id number] Name: LEROY MONTEJO Rep #:[id number] : 1965 57 From: Sergo brand [...] sensor q 10 days (DME) Dexcom G7 Word Processor Technician Misc See Rx Instructions .Route Qty: 1 [...] DO; Dr. Papa Douglass MD ~ Signed [facility] Work Phone: 1(549) 237-258109-29-2023 Progress note Author Sergo Bustillos [facility] April 19, 2023 12:43pm Note Date/Time April 19, 2023 12:43pm [facility] Medical Records Department [address] [place] [address] Progress Note - Hospitalist 04/19/23 1237 MR#: [id number] Acct: [id number] Name: LEROY MONTEJO Rep #:[id number] : 1965 57 From: Sergo brand MD PCP: Dr. Papa Douglass MD Status:AD M IN Location: [place] [address]- Subjective Subjective Doing well, no issues overnight. Maintaining oxygen saturations on room air Objective Data Objective Data Vital Signs: Vital Signs Temp Pulse Resp BP Pulse Ox O2 Del Method 97.9 F 84 16 126/66 H 92 Room Air 04/19/23 08:29 04/19/23 08:29 04/19/23 08:29 04/19/23 08:29 04/19/23 08:04/19/23 08:29 Oxygen Delivery Method Room Air Weight: [...] % (Auto) 59.7, Lymph % (Auto) 27.2, [place] % (Auto) 6.4, Eos % (Auto) 3.8, [...] DVT: Lovenox Charges/Coding Visit Charges Inpatient E&M: 19468 Subs Hosp L2 04/19/23 1243 <Electronically signed by Sergo Bustillos MD> Cosigner Signature (if applicable): CC: ~ Signed [facility] Work Phone: 1(883) 531-206309-28-2023 Progress note Author Cecilia Villa [facility] April 18, 2023 6:05pm Note Date/Time April 18, 2023 4:35pm [facility] Medical Records Department [address] [place] [address] Progress Note - Hospitalist 04/18/23 1635 MR#: [id number] Acct: [id number] Name: LEROY MONTEJO Rep #:[id number] : 1965 57 From: Cecilia Villa DO PCP: Dr. Papa Douglass MD Status:AD M IN Location: [place] [address] Hospitalist Note ABG was obtained and I [...] renal function closely. Echocardiogram is pending. 04/18/23 180<Electronically signed by Cecilia Villa DO> Cosigner Signature (if applicable): cc: ~* Signed [facility] Work Phone: 1(897) 281-502809-28-2023 Discharge summary Author [facility] April 18, 2023 4:18pm Note Date/Time April 18, 2023 11:17am [facility] Medical Records Department [address] [place] [address] Emergency Department Summary 04/18/23 MR#: [id number] Acct: [id number] Name: LEROY MONTEJO Rep #:[id number] : 1965 57 From: Candy Griffith PCP: Dr. Papa Douglass MD Status:AD M IN Location: [place] [address] HPI History of Present Illness Chief Complaint: [...] chronic UTIs as well as yeast infections. [facility] Medical History Anemia Arthritis Back pain [...] [Rx Last Taken Unknown] blood sugar diagnostic (AccuRevTouch Verio test strips) #100 ea 02/18/23 [Rx Last Taken Unknown] blood-glucose meter,continuous (Dexcom G7 Word Processor Technician) #1 ea 02/18/23 [Rx Last Taken Unknown] [...] 71.2 H Lymph % (Auto) 18.9 L [place] % (Auto) 5.3 Eos % (Auto) 2.7 [...] Clarity Cloudy Urine pH 6.0 Ur Specific [place] 1.015 Urine Protein 30 H Urine Glucose [...] Management Discussion w/another healthcare provider: Hospitalist and Polysomnograph Tech Discharge Plan Triage Chief Complaint: Abd Pain ED Provider: Candy Archuleta Dx/Rx/DC Orders Clinical Impression: Hypoxia, Colitis, Leg edema, Hyperglycemia Primary Care Provider: Papa Douglass Disposition Disposition: Acute Care Hospital [facility] Discharge Date/Time: 04/18/23 16:16 What to do if you have Problems For any increased pain, shortness of breath, bleeding, nausea or vomiting, chest pain, or any unexpected problems, contact your Primary Care Provider. Call [facility] ([phone]) or report to the closest Emergency Room. Call 911 if necessary. 04/18/23 1618 <Electronically signed by Candy Archuleta DO> Cosigner Signature (if applicable): CC: Dr. Papa Douglass MD ~ Signed [facility] Work Phone: 1(745) 805-568309-28-2023 History and physical note Author Cecilia Villa [facility] April 18, 2023 4:10pm Note Date/Time April 18, 2023 4:05pm [facility] Medical Records Department [address] [place] [address] H&P Exam - Hospitalist 04/18/23 1521 MR#: [id number] Acct: [id number] Name: LEROY MONTEJO Rep #:[id number] : 1965 57 From: Cecilia Villa DO PCP: Dr. Papa Douglass MD Status:AD M IN Location: [place] [id number] HPI - General General Date of Admission: 04/18/23 Date of Service: 04/18/23 Chief Complaint: abdominal pain HPI Narrative LEROY MONTEJO, is a 57 F who presented to the emergency department at [facility] due to abdominal pain that was [...] and Dopplers of her legs with edema. [facility] Medical History Anemia Arthritis Back pain [...] [Rx Last Taken Unknown] blood sugar diagnostic (Bugcrowd Verio test strips) #100 ea 02/18/23 [Rx Last Taken Unknown] blood-glucose meter,continuous (Dexcom G7 Word Processor Technician) #1 ea 02/18/23 [Rx Last Taken Unknown] [...] Clarity Cloudy, Urine pH 6.0, Ur Specific [place] 1.015, Urine Protein 30 H, Urine Glucose [...] 71.2 H, Lymph % (Auto) 18.9 L, [place] % (Auto) 5.3, Eos % (Auto) 2.7, [...] emergency department Charges/Coding Visit Charges Inpatient E&M: 58064 Init Hosp L3 04/18/23 1610 <Electronically signed by Cecilia Villa DO> Cosigner Signature (if applicable): CC: Dr. Cecilia Villa DO; Dr. Papa Douglass MD~ Signed [facility] Work Phone: 1(920) 132-375908-15-2023 Instructions* Patient Instructions* Mari Jernigan DO - [...] allow to air dry. There are also it security analyst recommendations included with your stockings. Skin care- [...] palm of the gloved will help you socket welder helper the stocking while putting it on. Be [...] are wearing the most effective size. Locations: [facility]- [phone] [employer] [phone] www.[employer]- [phone] www.[employer]- [phone] Located in [facility]- call local store and schedule a fitting. documented in this encounterWilson Memorial Hospital08-15-2023 History of Present illness Narrative* Mari Jernigan DO - 03/05/2023 8:24 AM EDT Images from the original note were not included. [facility] [place] DEPARTMENT OF VASCULAR SURGERY OUTPATIENT VISIT DATE [...] Grandfather Stroke Paternal Grandmother MEDICATIONS: DEXCOM G7 HEALTH ADVOCATE misc DEXCOM G7 SENSOR nelly APPLY 1 [...] needles, DISPOSABLE, (PEN NEEDLE) 31 gauge x 5/16" Use one needle 3-4 times daily with [...] and Positive for rash PHYSICAL EXAM: VITALS: [facility] 09/27/2013 General: Alert, oriented, cooperative, healthy appearance [...] 2023 TIME: 8:24 AM documented in this encounterWilson Memorial Hospital08-14-2023 Miscellaneous Notes* Telephone Encounter - Natalya Osman RN - 03/04/2023 8:21 AM EDT Patient notified. Natalya Osman RN * Telephone Encounter - Mela Murphy APRN.ALEXEI - 03/03/2023 1:05 PM EDT Please notify pt - The cephalexin she is taking should resolve her UTI. Mela Murphy APRN.ALEXEI documented in this encounterWilson Memorial Hospital08-11-2023 Miscellaneous Notes* Telephone Encounter - Mela Murphy APRN.CNP - 03/01/2023 5:52 PM EDT Cephalexin and pyridium prescribed. Pt notified. Mela Murphy APRN.ALEXEI * Telephone Encounter - Dolores Badillo [...] 02/28/2023 5.5 5.0 - 8.0 Final Specific [place], Ur Date Value Ref Range Status 02/28/2023 [...] (A) 0-5 /HPF Final documented in this encounterWilson Memorial Hospital08-10-2023 Miscellaneous Notes* Telephone Encounter - Dolores Badillo RN - 02/28/2023 12:56 PM EDT Patient notified. Dolores Badillo RN * Telephone Encounter - Mela Murphy APRN.CNP - 02/28/2023 12:51 PM EDT Orders filed. Mela Murphy APRN.ALEXEI * Telephone Encounter - Dolores Badillo RN - 02/28/2023 11:10 AM EDT Patient calling c/o urinary symptoms again. Recently treated for UTI last month at [facility]. Unsure if symptoms ever resolved completed. Took cephalexin x7 days on 01/23 for it. Asking for order to be placed for her to leave sample at lab. Urine Culture on 01-22-2023 URC Organism is too fastidious for routine susceptibility studies. Presumptive Lactobacillus sp. [place] Count >100,000 Normal [facility] Comment on above: Performed By: #### L500.2500, L100.0100, L501.9520 #### [facility] Laboratory [address] [place], [address] Dolores Badillo RN documented in this encounterWilson Memorial Hospital08-08-2023 Miscellaneous Notes* Telephone Encounter - Cecilia [...] pt. Wanda Ramesh LPN documented in this encounterWilson Memorial Hospital07-02-2023 Discharge summary Author Pranav Ward [facility] January 20, 2023 10:57pm Note Date/Time January 20, 2023 6:44p m [facility] Medical Records Department [address] [place] [address] Emergency Department Summary 01/20/23 MR#: [id number] Acct: [id number] Name: LEROY MONTEJO Rep #:[id number] : 1965 57 From: Pranav Ward [...] <DAVID Bravo - Last Filed: 01/20/23 21:00> [facility] Medical History Anemia Arthritis Back pain [...] % (Auto) 64.6 Lymph % (Auto) 26.6 [place] % (Auto) 5.4 Eos % (Auto) 2.0 [...] Clarity Cloudy Urine pH 5.0 Ur Specific [place] 1.020 Urine Protein 100 H Urine Glucose [...] Ward MD - Last Filed: 01/20/23 22:57> [facility] MDM Narrative Medical decision making narrative: I have [...] % (Auto) 64.6 Lymph % (Auto) 26.6 [place] % (Auto) 5.4 Eos % (Auto) 2.0 [...] Clarity Cloudy Urine pH 5.0 Ur Specific [place] 1.020 Urine Protein 100 H Urine Glucose [...] branch block and left anterior fascicular block. IN interval is 124 ms. Cures duration 124 [...] your Primary Care Provider. Call [facility] ([phone]) or report to the closest Emergency Room. Call 911 if necessary. 01/20/23 2257 <Electronically signed by Pranav Ward MD> Cosigner Signature (if applicable): 01/20/23 2100 <Electronically signed by Joel ROSSC> CC: Dr. Papa Douglass MD ~ Signed [facility] Work Phone: 1(681) 183-451307-01-2023 History of Present illness Narrative* Papa Douglass [...] needles, DISPOSABLE, (PEN NEEDLE) 31 gauge x 5/16" Use one needle 3-4 times daily with [...] - PEN NEEDLE, DIABETIC 31 GAUGE X 12/04" 3. Hypothyroidism, unspecified type - ICD9: 244.9, [...] Past Histories independently gathered by the clinical residential direct support professional and the remaining scribed note accurately describes [...] AM. Cecilia Lopez Ma documented in this encounterWilson Memorial Hospital06-30-2023 Miscellaneous Notes* Telephone Encounter - Cecilia Lopez Ma - 01/18/2023 9:21 AM EDT Paperwork all completed and faxed to the numbers below. Pt notified. Cecilia Lopez Ma * Telephone Encounter - Papa Douglass MD - 01/17/2023 5:22 PM EDT Forms done Papa Douglass MD * Telephone Encounter - Carrie Vega RN - 01/08/2023 12:12 PM EDT [...] completed re: Disability Opers Forms Fax to [phone] [employer] Forms (notice of disability) Fax to [phone] [facility] Commissioners Non-FMLA Medical Certification Fax to [facility] at [phone] Please contact pt with any questions. Cecilia Lopez Ma documented in this encounterWilson Memorial Hospital06-19-2023 Miscellaneous Notes* Telephone Encounter - Papa [...] month Protocols used: Diabetes - High Blood Otqxf-GVLZX-HT * Telephone Encounter - Gabriella Carrasco LPN [...] to the high readings. documented in this encounterWilson Memorial Hospital06-19-2023 Miscellaneous Notes* Telephone Encounter - Mari [...] options for this, she could do so oLuis Darby DPM documented in this encounterWilson Memorial Hospital05-11-2023 History of Present illness Narrative* Melissa [...] 29, 2022 2:20 PM documented in this encounterWilson Memorial Hospital05-11-2023 Instructions* Patient Instructions* Melissa Cabrales, AMANUEL - 11/29/2022 2:17 PM EDT Use warm compresses every morning Use gel/ointment every night Use Systane Complete 2-3 times daily documented in this encounterWilson Memorial Hospital05-02-2023 Miscellaneous Notes* Telephone Encounter - Feliciano [...] you. 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 Thank you. Coco Waters APRN.ALEXEI documented in this encounterWilson Memorial Hospital04-24-2023 Miscellaneous Notes* Telephone Encounter - Alison [...] EDT Patient calling asking for referral to [facility] Dr Haile Cervantes, fax number [phone]. Patient would like to see Endocrinology for her thyroid and diabetes issues. Pending consult needs diagnosis. Please advise documented in this encounterWilson Memorial Hospital04-18-2023 Miscellaneous Notes* Telephone Encounter - SHWETHA [...] Primary Care Clinical Pharmacist documented in this encounterWilson Memorial Hospital04-18-2023 Miscellaneous Notes* Telephone Encounter - Kiley Randall RP - 11/06/2022 2:21 PM EDT Primary Care Pharmacy Rescheduling Outreach Call center, please contact patient and reschedule telephone visit for Diabetes management within ~4 week(s). (Visit length: 30 minutes) Thank you, Kiley Randall [facility] 11/06/2022 2:21 PM documented in this encounterWilson Memorial Hospital04-06-2023 Miscellaneous Notes* Telephone Encounter - Papa Douglass MD - 10/25/2022 4:16 PM EDT Noted Papa Douglass MD * Telephone Encounter - Jonah Narnajo MD - 10/25/2022 12:14 PM EDT DOC received call from [facility] ER today. Patient had called [...] heri f/u with PCP/[facility]. documented in this encounterWilson Memorial Hospital04-06-[address] Hernandez [facility] October 25, 2022 11:02am Note Date/Time October 25, 2022 9:15 am [facility] Medical Records Department [address] [place] [address] Emergency Department Summary 10/25/22 MR#: [id number] Acct: [id number] Name: LEROY MONTEJO Rep #:[id number] 3 : 1965 56 From: Hiram Hernandez [...] of breath. No trouble swallowing or breathing [facility] Medical History Anemia Arthritis Back pain [...] % (Auto) 60.3 Lymph % (Auto) 30.7 [place] % (Auto) 5.2 Eos % (Auto) 2.1 [...] your Primary Care Provider. Call [facility] ([phone]) or report to the closest Emergency Room. Call 911 if necessary. 10/25/22 1102 <Electronically signed by Hiram Hernandez DO> Cosigner Signature (if applicable): CC: Dr. Papa Douglass MD ~ Signed [facility] Work Phone: [phone] 607-421804-04-2023 Miscellaneous Notes* Telephone Encounter - Feliciano Nunez APRN.CNP - 10/23/2022 11:03 AM EDT The following approved medication requests have been transmitted electronically. Requested Prescriptions Pending Prescriptions Disp Refills ferrous sulfate 325 mg (65 mg iron) tablet [Pharmacy Med Name: FERROUS SULFATE 325 MG TABLET] 30 tablet 5 Sig: TAKE 1 TABLET BY MOUTH EVERY DAY Feliciano Nunez APRN.CNP documented in [place] encounterRachel [place] [address]-20-2023 History of Present illness Narrative* Kiley Randall, [facility] - 10/08/2022 11:00 AM EDT Primary Care Pharmacy Visit CC (Reason for Consult): DM Goal: A1c<8% Last Collaborating Physician/MUTTON PUNCHER Visit: 10/01/22 Leroy Montejo is a 56 [...] Pharmacy: [facility] [address] Rx coverage: [employer] Affordability: brand name medications costly on current plan Diabetes supplies: [employer] System: pill box, she travels with [...] needles, DISPOSABLE, (PEN NEEDLE) 31 gauge x 5/16" Use one needle 3-4 times daily with [...] ALT 19 09/24/2022 Serum creatinine: 0.66 mg/dL 09/24/22 0823 Estimated creatinine clearance: 112.1 mL/min No results [...] complication, with long-term current use of insulin ([facility]) - ICD9: 250.00, V58.67, ICD10: E11.9, Z79.4 [...] Ozempic 0.25 mg once weekly - Provided New [employer] ([employer] Management card phone number Continue Metformin ER 500 [...] time was 20 minutes. documented in this encounterWilson Memorial Hospital03-17-2023 Miscellaneous Notes* Telephone Encounter - Cecilia [...] Completed form needs to be faxed to [facility] at [phone] ATTN: Georgina Lopez. Pt states she has been approved for 12 weeks of FMLA to work on her health. She needs this paperwork completed KEYANNA and faxed back to her employer. Pt states her leave started 09/28/22. Route to [place] when form completed for processing documented in this encounterWilson Memorial Hospital03-14-2023 Miscellaneous Notes* Telephone Encounter - Shea Husain Ma - 10/02/2022 10:00 AM EDT Pt called and notified of results, verbalized understanding. Shea Husain Ma * Telephone Encounter - Feliciano Nunez APRN.CNP - 10/02/2022 9:22 AM EDT Please let the patient know that her COVID and influenza testing was negative. Feliciano Nunez APRN.CNP documented in this encounterWilson Memorial Hospital03-13-2023 Miscellaneous Notes* Telephone Encounter - Coco [...] 325 mg one daily. documented in this encounterWilson Memorial Hospital03-13-2023 Instructions* Patient Instructions* Coco Waters APRN.CNP - 10/01/2022 9:22 AM EDT Start Zpack, take as directed. May use albuterol inhaler as needed. Continue supportive care at home. Stay well hydrated. Monitor sugars closely at home. Covid/flu test results should be back by tomorrow. Strep was negative. Follow up pending test results or sooner as needed. documented in this encounterWilson Memorial Hospital03-13-2023 History of Present illness Narrative* Coco [...] needles, DISPOSABLE, (PEN NEEDLE) 31 gauge x 5/16" Use one needle 3-4 times daily with [...] Continue supportive care at home, may use [id number] cold and cough medications as needed - [...] - PEN NEEDLE, DIABETIC 31 GAUGE X 5/16" Follow-up pending test results or sooner as needed. Discussed treatment plan and patient voices understanding. Patient's questions answered appropriately. Medications and potential side effects were discussed and patient voices understanding. Coco Waters APRN.CNP This note was partially generated using FastBooking voice recognition system. Note was reviewed for accuracy. There may be minor misspellings or grammar miscues with [employer]Booking voice recognition. documented in this encounterWilson Memorial Hospital03-09-2023 Instructions* Patient Instructions* Coco Waters APRN.CNP - 09/27/2022 10:08 AM EST Decrease synthroid to 200 mcg daily. Get repeat labs in 6-8 weeks to check thyroid. Schedule appointment with Endocrinology for follow up. Keep up coming appointment with Kiley to discuss diabetes May use mirlax 1-2 [...] sugar level consistently (80-130) documented in this encounterWilson Memorial Hospital03-09-2023 History of Present illness Narrative* Coco [...] to 8.0. Refers that insurance only covers V5Ixdsdo 6 months. Discussed seeing endocrinology out of the [facility], tried to get in with Dr. Cervantes at [facility], refers she had difficulty scheduling an appointment. Thyroid: Was taking 250 mcg of Synthroid daily, last month thyroid labs that were completed showed a low TSH. Instructed the patient to decrease Synthroid to 200 mcg daily, was not aware of changes recommended. Follows with endocrinology. HOSPITAL/ER FOLLOW UP: Reason for visit: Cough, congestion, generalized weakness Which facility: [facility] ER Date of visit: 09/21/2022 Diagnosis: Viral [...] needles, DISPOSABLE, (PEN NEEDLE) 31 gauge x 5/16" Use one needle 3-4 times daily with [...] APRN.ALEXEI This note was partially generated using FastBooking voice recognition system. Note was reviewed for accuracy. There may be minor misspellings or grammar miscues with [employer]Book[employer] voice recognition. documented in this encounterWilson Memorial Hospital03-06-2023 Miscellaneous Notes* Telephone Encounter - Shea [...] completed prior to upcoming office visit in [facility]. Patient states that she is currently taking [...] you. Coco Waters APRN.CNP documented in this encounterWilson Memorial Hospital03-06-2023 History of Present illness Narrative* Melissa [...] months for refraction and dry eye check Melsisa Cabrales, AMANUEL September 24, 2022 9:38 AM documented in this encounterWilson Memorial Hospital03-03-[address] Hernandez [facility] September 21, 2022 6:13pm Note Date/Time September 21, 2022 3:18 pm [facility] Medical Records Department [address] [place] [address] Emergency Department Summary 09/21/22 MR#: [id number] Acct: [id number] Name: LEROY MONTEJO Rep #:[id number] 3 : 1965 56 From: Hiram Hernandez [...] hematuria. She does not have abdominal pain [facility] Medical History Anemia Arthritis Back pain [...] rate of 65 bpm with bifascicular block. IN interval 126 ms, QRS duration 120 ms, [...] % (Auto) 58.1 Lymph % (Auto) 31.8 [place] % (Auto) 5.2 Eos % (Auto) 2.7 [...] Color Urine Clarity Urine pH Ur Specific [place] Urine Protein Urine Glucose (UA) Urine Ketones [...] (Auto) Neut % (Auto) Lymph % (Auto) [place] % (Auto) Eos % (Auto) Baso % (Auto) Absolute Neuts (auto) Absolute Lymphs (auto) Nucleated RBC % Sodium Potassium Chloride Carbon Dioxide Anion Gap BUN Creatinine Estim Creat Clear Calc Est GFR (MDRD) Af Amer Est GFR (MDRD) Non-Af BUN/Creatinine Ratio Glucose Calcium Troponin I High Sens B-Natriuretic Peptide 41.3 Urine Color Yellow Urine Clarity Cloudy Urine pH 5.0 Ur Specific [place] 1.020 Urine Protein 30 H Urine Glucose [...] your Primary Care Provider. Call [facility] ([phone]) or report to the closest Emergency Room. Call 911 if necessary. 09/21/221812 <Electronically signed by Hiram Hernandez DO> Cosigner Signature (if applicable): CC: Dr. Papa Douglass MD ~ Signed [facility] Work Phone: 1(565) 641-654403-03-2023 History of Present illness Narrative* Sabine Borrego [...] with this care plan. documented in this encounterWilson Memorial Hospital02-14-2023 Miscellaneous Notes* Telephone Encounter - Bia Block RN - 09/04/2022 1:09 PM EST Pharmacy has in stock. Left pt VM to make aware to moss picker before appointment and not to take [...] for 09/13/22. [facility] [place] * Telephone Encounter - Dionne Turner MD - 09/04/2022 10:32 AM EST Please contact patient to schedule a graded challenge to nitrofurantoin. Try to schedule for 8 or 9on 09/13. 8:30 on Monday 09/11 is another option. Confirm preferred pharmacy with patient. Give patient's instructions on antihistamine avoidance. Instruct her to moss picker the prescription to bring to her [...] Patient calling inquiring if she needs to moss picker something at the pharmacy and bring with her to her appointment with Dr. Turner on 09/13 for testing. Please advise and call patient on her cell [phone]. Thank you documented in this encounterWilson Memorial Hospital02-14-2023 Miscellaneous Notes* Telephone Encounter - Natalya [...] graded medication challenge to nitrofurantoin. Mela Murphy APRN.CNP documented in this encounterWilson Memorial Hospital02-10-2023 Miscellaneous Notes* Telephone Encounter - Dolores [...] AM EST Patient notified. Orders faxed to [facility] infusion center. Please file urine culture order. Dolores Badillo RN * Telephone Encounter - Zee Palacios LPN - 08/31/2022 8:39 AM EST Left message to call office. Patient needs to leave urine sample at lab for urine culture. Per provider due to antibiotic allergies, patient will need Gentamycin 500 mg IV administered. [facility] outpatient infusion center is able to administer te antibiotic today, and will contact patient to set up the a ppointment. Urine culture will need to be collected before receiving antibiotic. documented in this encounterWilson Memorial Hospital02-09-2023 Instructions* Patient Instructions* Dionne Turner MD [...] for predicting delayed reactions. documented in this encounterWilson Memorial Hospital02-09-2023 History of Present illness Narrative* Dionne Turner MD - 08/30/2022 2:01 PM EST This is a consultation requested by Mela Murphy APRN, DESIZING MACHINE OFFBEARER for an allergy and immunology evaluation. My [...] suffer from frequent sinopulmonary infections. ASTHMA: See [place] ECZEMA: The patient has no history of eczema. URTICARIA:The patient does not have a history of urticaria and/or angioedema. GERD: See [place] IN[place]CT STING: The patient does not have [...] needles, DISPOSABLE, (PEN NEEDLE) 31 gauge x 5/16" Use one needle 3-4 times daily with [...] no. SOCIAL HISTORY: Employer And Job Title: [employer] Years Of Education Completed: Not specified [...] No air conditioning Basement: No basement Sarina: Stza-rx-jugc carpeting Dust mite controls: Dust mite controls [...] Discussed with Mela Murphy APRN, CNP in [employer]. She will likely treat the patient's current [...] arise. Dionne Turner MD documented in this encounterWilson Memorial Hospital02-09-2023 Nurse Note* Randi Recio RN - 08/30/2022 1:57 PM EST Patient here for consult regarding antibiotic allergy. Broke out in hives head to toe as an adult. Feels that she took a couple days. Has some sneezing and nasal congestion, suffers year round. Uses flonase as needed. documented in this encounterWilson Memorial Hospital01-30-2023 Miscellaneous Notes* Telephone Encounter - Coco [...] Waters APRN.ALEXEI * Telephone Encounter - Natalya M Suman Pss - 08/20/2022 9:40 AM EST Pharmacy verified in [facility] Patient has been identified by name [...] 112.9 kg (249 lb) Please advise. Natalya Carrie Will Pss documented in this encounterWilson Memorial Hospital01-27-2023 Miscellaneous Notes* Telephone Encounter - Sue Garcia - 08/17/2022 9:01 AM EST Called PT LVM to call back and schedule consult to Allergy/Immunology. Sue GARRIDO * Telephone Encounter - Beth Evans LPN [...] she has never been seen by an balance wheel motion inspector in the past. Please see pended order [...] Telephone Encounter - Mela Murphy APRN.CNP - 08/14/2022 7:42 AM EST Please call patient and obtain clinical update on her UTI symptoms. Urine culture results show E. coli which is resistant to many antibiotics. She has listed allergies to the antibiotics that are effective for this bacteria. She will need to see an balance wheel motion inspector to determine if her allergies are true allergies so that she can be treated appropriately in the future. A consult order has been pended. Mela Murphy APRN.ALEXEI documented in this encounterWilson Memorial Hospital01-17-2023 Instructions* Patient Instructions* Mela Murphy APRN.CNP - 08/07/2022 7:25 AM EST URINARY [...] especially fever, back pain, and vomiting. Copyright [id number] [facility]. All rights reserved This information is provided by the [facility] and is not intended to replace the medical advice of your doctor or health care provider. Please consult your health care provider for advice about a specific medical condition. For additional written health information, please contact the [facility] at the [facility] or toll-free extension [phone]. This document was last reviewed on: 2001 index#[id number] documented in this encounterWilson Memorial Hospital01-17-2023 History of Present illness Narrative* Mela Murphy APRN.ALEXEI - 08/07/2022 6:58 AM EST Leroy Montejo is a 56 year old female who presents for problem visit UTI symptoms for 2-3 weeks. HPI: UTI symptoms x 2-3 weeks - bladder spasms, burning with urination, frequency with voiding in small amounts, blood flecks in urine. No fever or chills. 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 T2DM - FBS 200 this am. Was taking clindamycin 1-2 months ago for tooth infection. No vaginal itching or discharge. OB History T0 L0 SAB0 IAB0 Ectopic0 Multiple0 Live Births0 Cutter Hand History LMP: 09/27/2013, IUD Age at Menarche: Age at First : Age at Menopause: Cutter Hand History Comments: Sexual Activity: Never; No partner [...] needles, DISPOSABLE, (PEN NEEDLE) 31 gauge x 5/16" Use one needle 3-4 times daily with [...] results. Follow- up as needed. Mela Murphy APRN.ALEXEI Medical Decision Making: Problems: Low: Acute, uncomplicated illness or injury Data: Unique test(s) ordered: 2 Risk: Moderate: Drug management Medical Decision Making Level: 3 - Low documented in this encounterWilson Memorial Hospital12-28-2022 Miscellaneous Notes* Telephone Encounter - Papa Douglass MD - 07/18/2022 2:31 PM EST Noted Papa Douglass MD * Telephone Encounter - Carrie Vega RN - 07/18/2022 2:17 PM EST [facility] they received a referral from Galile[employer] Waters Np, and have called patient 3 times. The first time could not leave voice mail, the 2nd and 3rd time they did leave voicemail. They also left voicemail on brothers number. Have not heard back from patient, so they are going to toss the referral. documented in this encounterWilson Memorial Hospital12-28-2022 Instructions* Patient Instructions* Marissa Fenton APRN.CNP - 07/18/2022 10:49 AM EST May take an extra dose of hydrochlorothiazide for the next three days documented in this encounterWilson Memorial Hospital12-28-2022 History of Present illness Narrative* Marissa [...] needles, DISPOSABLE, (PEN NEEDLE) 31 gauge x 5/16" Use one needle 3-4 times daily with [...] F) Resp 16 Ht 154.9 cm (5' 1") Wt 112.9 kg (249 lb) LMP 09/27/2013 [...] to ER with red flag symptoms Marissa Podlogar, MUTTON PUNCHER.DESIZING MACHINE OFFBEARER Prescription instructions reviewed with patient as applicable. [...] which included preparing to see the patient, [id number] patient care, completing clinical documentation, obtaining and/or reviewing separately obtained history, performing a medically appropriate examination, counseling and educating the pat ient/family/caregiver, and ordering medications, tests, or procedures. documented in this encounterWilson Memorial Hospital12-19-2022 Miscellaneous Notes* Telephone Encounter - Cecilia [...] Husain Ma * Telephone Encounter - Alison Garrido - 07/04/2022 2:34 PM EST Patient is calling requesting Marissa call in another order [facility] [place] documented in this encounterWilson Memorial Hospital12-08-2022 Instructions* Patient Instructions* Coco Waters APRN.CNP - 06/28/2022 10:04 AM EST Continue to take Keflex as prescribed. 2. If swelling and redness get worse go to ER. 3. May apply cool compresses to help with pain. 4. May continue with ibuprofen as needed. 5. If you would like to see dermatology, [facility] is local to [place]. 6. Follow up as needed. documented in this encounterWilson Memorial Hospital12-08-2022 History of Present illness Narrative* Coco Waters APRN.CNP - 06/28/2022 9:40 AM EST This is a 56 year old female who presents today with: Patient presents with: Acute Visit: sinus issues HISTORY OF PRESENT ILLNESS: Leroy Montejo is a 56 year old female. Patient presents with: Acute Visit: sinus issues Here in the office for sinus concerns. Seen in [facility] on 06/26/22, concerns for erysipelas/Facial infection. Started on Keflex due to penicillin allergy. COVID/flu test was negative. 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 Yesterday was first full day [...] needles, DISPOSABLE, (PEN NEEDLE) 31 gauge x 5/16" Use one needle 3-4 times daily with [...] APRN.ALEXEI This note was partially generated using FastBooking voice recognition system. Note was reviewed for accuracy. There may be minor misspellings or grammar miscues with FastBooking voice recognition. documented in this encounterWilson Memorial Hospital12-06-2022 History of Present illness Narrative* Génesis Zhang PA-C - 06/26/2022 12:34 PM EST Images from the original note were not included. This note was created using [employer] (1BOG). Subjective Leroy Montejo is a 56 year [...] needles, DISPOSABLE, (PEN NEEDLE) 31 gauge x 5/16" Use one needle 3-4 times daily with [...] agreeable. Génesis Zhang PA-C documented in this encounterWilson Memorial Hospital12-01-2022 Instructions* Patient Instructions* Coco Waters APRN.CNP - 06/21/2022 8:35 AM EST Decrease synthroid to 250 mcg. 1 tablet 200 mcg and 1 tablet 50 mcg. Get repeat labs in 6 weeks to check thyroid Schedule appointment with endocrinology, Dr. Cervantes at [facility] Continue to take all diabetes medication as prescribed, start Ozempic 0.25 mg once weekly. Continue to eat low carb and monitor sugars at home. Follow up in 3 months or sooner pending test results. documented in this encounterWilson Memorial Hospital12-01-2022 History of Present illness Narrative* Coco [...] needles, DISPOSABLE, (PEN NEEDLE) 31 gauge x 5/16" Use one needle 3-4 times daily with [...] to see Dr. Cervantes in endocrinology at [facility]. - HGB A1C - COMP [...] APRN.ALEXEI This note was partially generated using FastBooking voice recognition system. Note was reviewed for accuracy. There may be minor misspellings or grammar miscues with FastBooking voice recognition. 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 documented in this encounterWilson Memorial Hospital09-06-2022 History of Present illness Narrative* Melissa [...] continue care with primary care doctor and/or thread tool grinder set up operator to maintain optimum levels as they are important to avoid ocular complications. Encouraged patient to call the office immediately with any changes to vision or visual concerns. Advised to not wait until the next scheduled exam. Follow-up in 6 months for dry eye check Melissa Cabrales, OD March 27, 2022 10:48 AM documented in this encounterWilson Memorial Hospital08-29-2022 Instructions* Patient Instructions* Coco Waters APRN.CNP [...] or sooner as needed. documented in this encounterWilson Memorial Hospital08-29-2022 History of Present illness Narrative* Coco [...] discuss lab results. Needs medication refills. Seeing Mandy for diabetes and hypothyroidism. Had appointment on 03/14/22, TSH was low at 0.067. Repeat labs from Endo are due in April. Reduced to 300 mcg of Synthroid daily. Just started Trulicity 0.75 mg, needs to moss picker medication from pharmacy. Fasting sugars 200-300. [...] needles, DISPOSABLE, (PEN NEEDLE) 31 gauge x 5/16" Use one needle 3-4 times daily with [...] complication, with long-term current use of insulin ([facility]) - ICD9: 250.00, V58.67, ICD10: E11.9, Z79.4 [...] APRN.ALEXEI This note was partially generated using FastBook[employer] voice recognition system. Note was reviewed for accuracy. There may be minor misspellings or grammar miscues with [employer] voice recognition. documented in this encounterWilson [facility] Hospital08-24-2022 Instructions* Patient Instructions* Gretchen Fox APRN.CNP [...] TRULICITY 0.75 once weekly documented in this encounterWilson Memorial Hospital08-24-2022 History of Present illness Narrative* Gretchen [...] at 1-2 am will have snack like bread racker salad, drinks water, and regular popor will [...] needles, DISPOSABLE, (PEN NEEDLE) 31 gauge x 5/16" Use one needle 3-4 times daily with [...] daily. Dx: Type 2 DM - Uncontrolled E11. Lancets lancets Use to check blood sugar [...] RECOMMEND CONSULT TO DM ED and ENDO CITY CARRIER ASSISTANT Consult placed RECOMMEND FOLLOWING CHANGES TRESIBA [...] A1C Gretchen Fox CNP documented in this encounterWilson Memorial Hospital08-09-2022 History of Present illness Narrative* Melissa Cabrales, OD - 02/27/2022 4:17 PM EDT 1. Type 2 diabetes mellitus without retinopathy (HCC) Risk of diabetic changes and vision loss can be minimized by tight control of blood sugar, blood pressure, and cholesterol levels. Educated patient to continue care with primary care doctor and/or thread tool grinder set up operator to maintain optimum levels as they [...] 27, 2022 4:17 PM documented in this encounterWilson Memorial Hospital08-09-2022 Instructions* Patient Instructions* Melissa Cabrales OD - 02/27/2022 2:42 PM EDT Use Refresh relieva or Systane Complete 2-3 times daily Use Refresh or Systane gel before bedtime documented in this encounterWilson Memorial Hospital08-01-2022 Miscellaneous Notes* Telephone Encounter - Brianda [...] yeast infections come back. documented in this encounterWilson Memorial Hospital07-29-2022 Instructions* Patient Instructions* Bia Jacinto APRN.[facility] - 02/16/2022 12:49 PM EDT VAGINAL [...] Antibiotic treatment Lack of sleep Diabetes Stress HIV\\AIDS Can yeast infections recur? Yes. Yeast infections [...] for diabetes Get tested for HIV/AIDS Copyright 3011-6323 [facility]. All rights reserved. This information is provided by the [facility] and is not intended to replace the medical advice of your doctor or health care provider. Please consult your health care provider for advice about a specific medical condition. For additional written health information, please contact the [facility] at the [facility] or toll-free extension [phone]. This document was last reviewed on: 2004 index#[id number] documented in this encounterWilson Memorial Hospital07-29-2022 History of Present illness Narrative* Bia Jacinto APRN.CNP - 02/16/2022 12:33 PM EDT This note was created using [employer] (1BOG). Subjective Leroy Montejo is a 56 year old female. 56 year old female with PMH HTN, hyperlipidemia, DM, thyroid presents with " think I have yeast" Acute onset a few days ago Rash States located under left breast region +itchy +red Denies prior history of rash in breast. Endorses her throat and mouth "feel funny" +redness Endorses she has been experiencing vaginal itching. States she has been out of her test strips, and is unsure what her sugars have been. States she is just completing ATB She also endorses she uses inhaler PRN. The history is provided by the patient. No freight broker was used. Rash This is a new [...] needles, DISPOSABLE, (PEN NEEDLE) 31 gauge x 5/16" Use one needle 3-4 times daily with [...] Self swab X 1 Diflucan Bia Jacinto APRN.DESIZING MACHINE OFFBEARER documented in this encounterWilson Memorial Hospital07-25-2022 Miscellaneous Notes* Telephone Encounter - Papa Douglass MD - 02/12/2022 3:34 PM EDT OK to refill as ordered Papa Douglass MD * Telephone Encounter - Shea Husain Ma - 02/12/2022 3:06 PM EDT Last Rx: 11/21/21 #63 mL 90 days, per med reconciliation. Shea Husain Ma * Telephone Encounter - Jocelyn Cai Pss - 02/12/2022 2:56 PM EDT Patient has [...] patient. Jocelyn Cai Pss documented in this encounterWilson Memorial Hospital07-21-2022 History of Present illness Narrative* Papa [...] needles, DISPOSABLE, (PEN NEEDLE) 31 gauge x 5/16" Use one needle 3-4 times daily with [...] Past Histories independently gathered by the clinical residential direct support professional and the remaining scribed note accurately describes [...] PM. Shea Husain Ma documented in this encounterWilson Memorial Hospital04-25-2022 History of Present illness Narrative* Kiley Randall [facility] - 11/13/2021 1:00 PM EDT [...] Pharmacy: [facility] [place] [address] Rx coverage: Aetna Affordability: no issues Diabetes supplies: [employer] System: pill box, she travels with it ACTIVE PROBLEM LIST Type II Diabetes Mellitus, Uncontrolled Hypothyroidism History of Anemia Premenopausal Menorrhagia Cellulitis Mixed Hyperlipidemia Vitamin D Deficiency Anemia Vomiting Blood Colitis Bmi 45.0-49.9, Adult ([facility]) Occult Blood Positive Stool Irritability Essential Hypertension [...] needles, DISPOSABLE, (PEN NEEDLE) 31 gauge x 5/16" Use one needle 3-4 times daily with [...] 12/11/21. Patient verbalized understanding of instructions. Kiley Randall, VeenaD, BCACP Primary Care Clinical Pharmacist [facility] The majority of the pharmacy visit (> 50%) was spent counseling and/or coordinating care for thepatient. [Face to Face] time was 22 minutes. documented in this encounterWilson Memorial Hospital04-25-2022 Instructions* Patient Instructions* Kiley Randall RPh [...] 2 tablets twice daily documented in this encounterWilson Memorial Hospital04-21-2022 History of Present illness Narrative* Papa [...] needles, DISPOSABLE, (PEN NEEDLE) 31 gauge x 5/16" Use one needle 3-4 times daily with [...] today Papa Douglass MD documented in this encounterWilson Memorial Hospital03-28-2022 Instructions* Patient Instructions* Sasha Schroeder APRN.CNP - 10/16/2021 12:28 PM EDT Naprosyn one tablet twice a day for 2 weeks Tylenol (generic acetaminophen) 500 mg-2 tabs every 8 hrs. as needed pain Xrays were completed and interpreted by the radiologist as negative for acute bony abnormality. 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 Sasha Schroeder APRN.ALEXEI documented in this encounterWilson Memorial Hospital03-28-2022 History of Present illness Narrative* Kiley Randall, [facility] - 10/16/2021 10:00 AM EDT [...] Pharmacy: [facility] [place] [address] Rx coverage: Aetna Affordability: no issues Diabetes supplies: [employer] Organization System: pill box, she travels with [...] needles, DISPOSABLE, (PEN NEEDLE) 31 gauge x 5/16" Use one needle 3-4 times daily with [...] 04/05/2021 The 10-year ASCVD risk score (Bettie CRISTY Jr., et al., 2013) is: 7.9% Values [...] Follow up: Patient is scheduled to see DESIZING MACHINE OFFBEARER on 01/13/22. Patient to follow up with PharmD on 11/13/21. Patient verbalized understanding of instructions. Kiley Randall PharmD, BCACP Primary Care Clinical Pharmacist [facility] The majority of the pharmacy visit (> 50%) was spent counseling and/or coordinating care for thepatient. [Face to Face] time was 27 minutes. documented in this encounterWilson Memorial Hospital03-28-2022 Instructions* Patient Instructions* Kiley Randall RPh - 10/16/2021 10:00 AM EDT Start pioglitazone 15 mg once daily Change Novolog to 48 units 2 times daily before meals Change Tresiba to 110 units once daily Continue metformin, if able please increase to 2 tablets twice daily documented in this encounterWilson Memorial Hospital03-24-2022 Miscellaneous Notes* Telephone Encounter - Alison Rogel RN - 10/12/2021 2:38 PM EDT Patient returned call and given provider's message below and patient verbalized understanding. Patient is agreeable to trying Lantus insulin. She states she has an upcoming appt with Angelnoah Randall on 10/16/21, if Kiley or Jessica [...] you. Coco Waters APRN.ALEXEI documented in this encounterWilson Memorial Hospital03-24-2022 Miscellaneous Notes* Telephone Encounter - Alison Rogel RN - 10/12/2021 1:44 PM EDT Opened in error. Mc Rogel RN documented in this encounterWilson Memorial HospitalDisbrook[facility] summary Author Dr. Rivera [facility] October 10, 2022 5:59am Note Date/Time October 10, 2022 5:1 4am [facility] Medical Records Department [address] [place] [address] Emergency Department Summary 10/10/22 MR#: [id number] Acct: [id number] Name: LEROY MONTEJO Rep #:[id number] 1 : 1965 56 From: Sid Rivera [...] has minor rhinorrhea, congestion, cough without dyspnea. [facility] Medical History Anemia Arthritis Back pain [...] Clarity Turbid Urine pH 6.5 Ur Specific [place] 1.015 Urine Protein 100 H Urine Glucose [...] your Primary Care Provider. Call [facility] ([phone]) or report to the closest Emergency Room. Call 911 if necessary. 10/10/22 0559 <Electronically signed by Sid Rivera MD> Cosigner Signature (if applicable): CC: Dr. Papa Douglass MD ~ Signed [facility] Work Phone: Evaluation + Plan note Future Appointments Appointment Date:07/30/2023 09:00:00 AM Scheduled Provider: Location:[facility] Appointment Type:PC Nurse Lab Appointment Date:08/02/2023 01:30:00 PM Scheduled Provider:VERO ORTEZ Location:[facility] Appointment Type:PC OV Future Scheduled Tests Radiology* CT Thorax w/o Contrast 06/21/23 [facility] Evaluation + Plan note Future Appointments Appointment Date:08/02/2023 01:30:00 PM Scheduled Provider:VERO ORTEZ Location:[facility] Appointment Type:PC OV Appointment Date:08/13/2023 10:00:00 AM Scheduled Provider: Location:[facility] Appointment Type:CT Chest w/o Contrast Future Scheduled Tests Radiology* CT Thorax w/o Contrast 08/13/23 [facility] Evaluation + Plan note Future Appointments Appointment Date:06/30/2024 09:00:00 AM Scheduled Provider:VERO ORTEZ Location:[facility] Appointment Type:PC Wellness Annual Future Scheduled Tests Laboratory* Lipid Profile 01/14/24 * Lipid Profile 07/15/24 * Complete Metabolic Panel 01/14/24 * Complete Metabolic Panel 07/15/24 [facility] Evaluation + Plan note Future Appointments Appointment Date:03/16/2024 08:00:00 AM Scheduled Provider:KURT PINEDA Location:UROLOGY Appointment Type:URO METEOROLOGY TEACHER Appointment Date:05/25/2024 02:30:00 PM Scheduled Provider:VERO ORTEZ Location:[facility] Appointment Type:PC OV Appointment Date:06/30/2024 09:00:00 AM Scheduled Provider:VERO ORTEZ Location:[facility] Appointment Type:PC Wellness Annual Diagnostic Tests Pending * Urine Culture 02/25/24 Future Scheduled Tests Laboratory* Lipid Profile 01/14/24 * Lipid Profile 07/15/24 * Complete Metabolic Panel 01/14/24 * Complete Metabolic Panel 07/15/24 [facility] Evaluation + Plan note Future Appointments Appointment Date:03/02/2024 07:30:00 AM Scheduled Provider:VERO ORTEZ Location:[facility] Appointment Type:PC OV ED Follow Up Appointment Date:03/16/2024 08:00:00 AM Scheduled Provider:KURT PINEDA Location:UROLOGY Appointment Type:URO METEOROLOGY TEACHER Appointment Date:05/25/2024 02:30:00 PM Scheduled Provider:VERO ORTEZ Location:[facility] Appointment Type:PC OV Appointment Date:06/30/2024 09:00:00 AM Scheduled Provider:VERO ORTEZ Location:[facility] Appointment Type:PC Wellness Annual Future Scheduled Tests Laboratory* Lipid Profile 01/14/24 * Lipid Profile 07/15/24 * Complete Metabolic Panel 01/14/24 * Complete Metabolic Panel 07/15/24 [facility] Evaluation + Plan note Future Appointments Appointment Date:03/16/2024 08:00:00 AM Scheduled Provider:KURT PINEDA Location:UROLOGY Appointment Type:URO METEOROLOGY TEACHER Appointment Date:05/25/2024 02:30:00 PM Scheduled Provider:VERO ORTEZ Location:[facility] Appointment Type:PC OV Appointment Date:06/30/2024 09:00:00 AM Scheduled Provider:VERO ORTEZ Location:[facility] Appointment Type:PC Wellness Annual Future Scheduled Tests Laboratory* Lipid Profile 01/14/24 * Lipid Profile 07/15/24 * Complete Metabolic Panel 01/14/24 * Complete Metabolic Panel 07/15/24 [facility] Evaluation + Plan note Future Appointments Appointment Date:03/17/2024 07:30:00 AM Scheduled Provider:JAE AYALA Location:[facility] Appointment Type:PC Acute Appointment Date:05/25/2024 02:30:00 PM Scheduled Provider:VERO ORTEZ Location:[facility] Appointment Type:PC OV Appointment Date:06/30/2024 09:00:00 AM Scheduled Provider:VERO ORTEZ Location:[facility] Appointment Type:PC Wellness Annual Future Scheduled Tests Laboratory* Urine Culture 03/16/24 * Lipid Profile 01/14/24 * Lipid Profile 07/15/24 * Complete Metabolic Panel 01/14/24 * Complete Metabolic Panel 07/15/24 [facility] [employer]aluation + Plan note Future Appointments Appointment Date:05/25/2024 02:30:00 PM Scheduled Provider:VERO ORTEZ APRN-ALEXEI Location:[facility] Appointment Type:PC OV Appointment Date:06/30/2024 09:00:00 AM Scheduled Provider:VERO ORTEZ Location:[facility] Appointment Type: Wellness Annual Future Scheduled Tests Laboratory* Lipid Profile 01/14/24 * Lipid Profile 07/15/24 * Complete Metabolic Panel 01/14/24 * Complete Metabolic Panel 07/15/24 [facility] Evaluation + Plan note Future Appointments Appointment Date:04/23/2024 09:20:00 AM Scheduled Provider:AMADOU CLINTON MD Location:UROLOGY Appointment Type:URO Off Proc Cysto 20 min Appointment Date:05/25/2024 02:30:00 PM Scheduled Provider:VERO ORTEZ Location:[facility] Appointment Type:PC OV Appointment Date:06/30/2024 09:00:00 AM Scheduled Provider:VERO ORTEZ APRN-ALEXEI Location:[facility] Appointment Type:PC Wellness Annual Future Scheduled Tests Laboratory* Lipid Profile 01/14/24 * Lipid Profile 07/15/24 * Complete Metabolic Panel 01/14/24 * Complete Metabolic Panel 07/15/24 Radiology* MA Mammo Screening Bilateral w/ Jorge Alberto 03/30/24 [facility] Evaluation + Plan note Future Appointments [...] Mammo Screening Bilateral w/ Jorge Alberto 04/21/24 [facility] Evaluation + Plan note Future Appointments Appointment Date:05/05/2024 08:00:00 AM Scheduled Provider: Location:RAD Appointment Type:Echo - Echocardiogram Adult Appointment Date:05/11/2024 11:30:00 AM Scheduled Provider:VERO ORTEZ Location:[facility] Appointment Type:PC OV Appointment Date:05/21/2024 09:00:00 AM Scheduled Provider:KURT PINEDA Location:UROLOGY Appointment Type:URO OV Appointment Date:05/25/2024 02:30:00 PM Scheduled Provider:VERO ORTEZ Location:[facility] Appointment Type:PC OV Appointment Date:06/30/2024 09:00:00 AM Scheduled Provider:VERO ORTEZ Location:[facility] Appointment Type:PC Wellness Annual Future Scheduled Tests Laboratory* Lipid Profile 01/14/24 * Lipid Profile 07/15/24 * Complete Metabolic Panel 04/13/24 * Complete Metabolic Panel 01/14/24 * Complete Metabolic Panel 07/15/24 Radiology* MA Mammo Screening Bilateral w/ Jorge Alberto 04/21/24 [facility] Evaluation + Plan note Future Appointments Appointment Date:05/11/2024 11:30:00 AM Scheduled Provider:VERO ORTEZ APRN-ALEXEI Location:[facility] Appointment Type:PC OV Appointment Date:05/21/2024 09:00:00 AM Scheduled Provider:KURT PINEDA Location:UROLOGY Appointment Type:URO OV Appointment Date:05/25/2024 02:30:00 PM Scheduled Provider:VERO ORTEZ APRN-ALEXEI Location:[facility] Appointment Type:PC OV Appointment Date:06/30/2024 09:00:00 AM Scheduled Provider:VERO ORTEZ APRN-ALEXEI Location:[facility] Appointment Type:PC Wellness Annual Future Scheduled Tests Laboratory* Lipid Profile 07/15/24 * Complete Metabolic Panel 01/14/24 * Complete Metabolic Panel 07/15/24 Radiology* MA Mammo Screening Bilateral w/ Jorge Alberto 04/21/24 [facility] Evaluation + Plan note Future Appointments Appointment Date:05/21/2024 09:00:00 AM Scheduled Provider:KURT PINEDA Location:UROLOGY Appointment Type:URO OV Appointment Date:05/25/2024 02:30:00 PM Scheduled Provider:VERO ORTEZ APRN-ALEXEI Location:[facility] Appointment Type:PC OV Appointment Date:06/30/2024 09:00:00 AM Scheduled Provider:VERO ORTEZ APRN-ALEXEI Location:[facility] Appointment Type:PC Wellness Annual Appointment Date:11/02/2024 01:30:00 PM Scheduled Provider:VERO ORTEZ APRN-ALEXEI Location:[facility] Appointment Type:PC OV Future Scheduled Tests Laboratory* Complete Metabolic Panel 01/14/24 Radiology* MA Mammo Screening Bilateral w/ Jorge Alberto 04/21/24 [facility] Evaluation + Plan note Future Appointments Appointment Date:05/25/2024 02:30:00 PM Scheduled Provider:VERO ORTEZ Location:[facility] Appointment Type:PC OV Appointment Date:06/30/2024 09:00:00 AM Scheduled Provider:VERO ORTEZ Location:[facility] Appointment Type:PC Wellness Annual Appointment Date:11/02/2024 01:30:00 PM Scheduled Provider:VERO ORTEZ Location:[facility] Appointment Type:PC OV Future Scheduled Tests Laboratory* Complete Metabolic Panel 01/14/24 Radiology* MA Mammo Screening Bilateral w/ Jorge Alberto 04/21/24 [facility] Evaluation + Plan note Future Appointments Appointment Date:11/20/2024 01:30:00 PM Scheduled Provider:KURT PINEDA Location:UROLOGY Appointment Type:URO OV Future Scheduled Tests Laboratory* Urine Culture 09/02/24 * Complete Metabolic Panel 01/14/24 Radiology* MA Mammo Screening Bilateral w/ Jorge Alberto 04/21/24 * MA Mammo Screening Bilateral w/ Jorge Alberto 09/02/24 [facility] evaluation + Plan note Future Appointments Appointment Date:11/20/2024 01:30:00 PM Scheduled Provider:KURT PINEDA Location:UROLOGY Appointment Type:URO OV Future Scheduled Tests Laboratory* Urine Culture 09/02/24 * Complete Metabolic Panel 01/14/24 Radiology* MA Mammo Screening Bilateral w/ Jorge Alberto 04/21/24 [facility] Evaluation + Plan note Future Appointments Appointment Date:11/20/2024 01:30:00 PM Scheduled Provider:KURT PINEDA Location:UROLOGY Appointment Type:URO OV Appointment Date:12/02/2024 01:00:00 PM Scheduled Provider:VERO ORTEZ Location:[facility] Appointment Type:PC OV Appointment Date:02/02/2025 03:30:00 PM Scheduled Provider:VERO ORTEZ Location:[facility] Appointment Type:PC OV Future Scheduled Tests Laboratory* Urine Culture 2/12/25 * Complete Metabolic Panel 01/14/24 Radiology* MA Mammo Screening Bilateral w/ Jorge Alberto 04/21/24 [facility] evaluation + Plan note Future Appointments Appointment Date:02/02/2025 03:30:00 PM Scheduled Provider:VERO ORTEZ Location:[facility] Appointment Type:PC OV Future Scheduled Tests Laboratory* Urine Culture 09/02/24 * Complete Metabolic Panel 01/14/24 Radiology* MA Mammo Screening Bilateral w/ Jorge Alberto 04/21/24 [facility] evaluation + Plan note Future Appointments Appointment Date:04/26/2025 11:00:00 AM Scheduled Provider:VERO ORTEZ Location:[facility] Appointment Type:PC OV Future Scheduled Tests Laboratory* Urine Culture 09/02/24 Radiology* MA Mammo Screening Bilateral w/ Jorge Alberto 04/21/24 [facility] evaluation note* Diagnosis Onychomycosis Dermatophytosis of nail [facility] Diagnosis Left hand pain- Primary Pain in limb documented in this encounter [facility] note* Diagnosis Type 2 diabetes mellitus without complication, with long-term current use of insulin (HCC)- Primary documented in this encounter [facility] note* Diagnosis Uncontrolled type 2 diabetes mellitus with hyperglycemia (HCC)- Primary documented in this encounter [facility] note* Diagnosis Type 2 diabetes mellitus without complication, with long-term current use of insulin (HCC) documented in this encounter [facility] note* Diagnosis Uncontrolled type 2 diabetes mellitus with hyperglycemia (HCC)- Primary Hypothyroidism, unspecified type Anxiety with depression Mixed hyperlipidemia Essential hypertension Unspecified essential hypertension Anemia, unspecified type KODI (obstructive sleep apnea) Obstructive sleep apnea (adult) (pediatric) GERD without esophagitis Esophageal reflux documented in this encounter [facility] note* Diagnosis Onset Date Resolution Status Depression acute Hyperglycemia due to diabetes mellitus acute Lactic acidosis acute UTI (urinary tract infection) acute Hypothyroidism [facility] Work Phone: evaluation note* Diagnosis Onset Date Resolution Status Depression acute Hyperglycemia due to diabetes mellitus acute Lactic acidosis acute Noncompliance with medication regimen acute UTI (urinary tract infection) acute Hypothyroidism chronic [facility] Work Phone: Evaluation note* Diagnosis Type 2 diabetes mellitus without complication, with long-term current use of insulin ([facility]) documented in this encounter [facility] note* Diagnosis Pharyngitis, unspecified etiology- Primary Rash, skin Rash and other nonspecific skin eruption Vaginal itching Pruritus of genital organs documented in this encounter [facility] note* Diagnosis Type 2 diabetes mellitus without retinopathy (HCC)- Primary Type II or unspecified type diabetes mellitus without mention of complication, not stated as uncontrolled Regular astigmatism of both eyes Regular astigmatism Presbyopia Dry eye syndrome of bilateral lacrimal glands Tear film insufficiency, unspecified Punctate keratitis of right eye Punctate keratitis documented in this encounter [facility] note* Diagnosis Uncontrolled type 2 diabetes mellitus with hyperglycemia (HCC)- Primary Hypothyroidism, unspecified type Acquired hypothyroidism Unspecified hypothyroidism Type 2 diabetes mellitus without complication, with long-term current use of insulin ([facility]) documented in this encounter [facility] note* Diagnosis Type 2 diabetes mellitus without complication, with long-term current use of insulin ([facility])- Primary Essential hypertension Unspecified essential hypertension Hypothyroidism, unspecified type documented in this encounter [facility] note* Diagnosis Regular astigmatism of both eyes- Primary Regular astigmatism Presbyopia Dry eye syndrome of bilateral lacrimal glands Tear film insufficiency, unspecified Punctate keratitis of right eye Punctate keratitis Type 2 diabetes mellitus without retinopathy (HCC) Type II or unspecified type diabetes mellitus without mention of complication, not stated as uncontrolled documented in this encounter [facility] note* Diagnosis Onset Date Resolution Status Hyperglycemia due to diabetes mellitus resolved Lactic acidosis resolved UTI (urinary tract infection) resolved [facility] Work Phone: Evaluation noteNo assessment information available [facility] Work Phone: Evaluation note* Diagnosis Type 2 diabetes mellitus without complication, with long-term current use of insulin ([facility])- Primary Hypothyroidism, unspecified type Anxiety with depression documented in this encounter [facility] note* Diagnosis Viral URI- Primary Acute upper respiratory infections of unspecified site Facial infection Other specified infectious and parasitic diseases documented in this encounter [facility] note* Diagnosis Facial infection- Primary Other specified infectious and parasitic diseases Erysipelas [facility] Diagnosis Bilateral leg edema- Primary Edema [facility] Diagnosis Urinary tract infection with hematuria, site unspecified- Primary [facility]* Diagnosis Allergy to multiple antibiotics- Primary Other drug allergy [facility] Diagnosis [id number] adverse effect of medication, initial encounter- Primary Allergy to multiple antibiotics Other drug allergy Nonallergic rhinitis Chronic rhinitis [facility]* Diagnosis Urinary tract infection with hematuria, site unspecified- Primary Allergy to multiple antibiotics Other drug allergy [facility] Diagnosis SOB (shortness of breath)- Primary Shortness of breath Bilateral leg edema Edema [facility] Diagnosis Dry eye syndrome of bilateral lacrimal glands- Primary Tear film insufficiency, unspecified Regular astigmatism of both eyes Regular astigmatism Presbyopia Type 2 diabetes mellitus without retinopathy (HCC) Type II or unspecified type diabetes mellitus without mention of complication, not stated as uncontrolled documented in this encounter [facility] note* Diagnosis URI, acute- Primary Acute upper respiratory infections of unspecified site Type 2 diabetes mellitus without complication, with long-term current use of insulin (HCC) Hypothyroidism, unspecified type Iron deficiency anemia secondary to inadequate dietary iron intake Vitamin D deficiency Unspecified vitamin D deficiency documented in this encounter [facility] note* Diagnosis Bronchitis- Primary Bronchitis, not specified as acute or chronic Acute cough Sore throat Acute pharyngitis Iron deficiency anemia secondary to inadequate dietary iron intake Type 2 diabetes mellitus without complication, with long-term current use of insulin (HCC) [facility]* Diagnosis Type 2 diabetes mellitus without complication, with long-term current use of insulin (HCC) [facility] Diagnosis Type 2 diabetes mellitus without complication, with long-term current use of insulin (HCC)- Primary [facility] Diagnosis Iron deficiency anemia secondary to inadequate dietary iron intake [facility] Diagnosis Type 2 diabetes mellitus without complication, with long-term current use of insulin (HCC)- Primary Hypothyroidism, unspecified type [facility] Diagnosis Bilateral foot pain- Primary Pain in limb [facility] Diagnosis Bilateral leg edema Edema Type 2 diabetes mellitus without complication, with long-term current use of insulin ([facility]) [facility]* Diagnosis Dry eye syndrome of bilateral lacrimal glands- Primary Tear film insufficiency, unspecified Regular astigmatism of both eyes Regular astigmatism Presbyopia Type 2 diabetes mellitus without retinopathy (HCC) Type II or unspecified type diabetes mellitus without mention of complication, not stated as uncontrolled [facility] Diagnosis Venous insufficiency- Primary Unspecified venous (peripheral) insufficiency [facility] Diagnosis Pain in both hands- Primary Type 2 diabetes mellitus without complication, with long-term current use of insulin ([facility]) Hypothyroidism, unspecified type History of anemia Personal history of diseases of blood and blood-forming organs Mixed hyperlipidemia Essential hypertension Unspecified essential hypertension Uncontrolled type 2 diabetes mellitus with hyperglycemia ([facility]) GERD without esophagitis Esophageal reflux documented in this encounter [facility] note* Diagnosis Dysuria- Primary [facility] Diagnosis Venous (peripheral) insufficiency- Primary Unspecified venous (peripheral) insufficiency Secondary lymphedema Other lymphedema documented in this encounter [facility] note* Diagnosis Onset Date Resolution Status CKD (chronic kidney disease) chronic Diabetes chronic Hypothyroidism chronic Neuropathy chronic Obesity chronic CKD (chronic kidney disease) chronic Diabetes chronic Hypothyroidism chronic Obesity chronic Colitis acute Hyperglycemia acute Hypoxia acute Leg edema acute UTI (urinary tract infection) [facility] Work Phone: Evaluation note* Diagnosis Hospital [...] Edema documented in this encounter [facility] note* Diagnosis History of colonic polyps- Primary Personal history of colonic polyps Colitis Other and unspecified noninfectious gastroenteritis and colitis Encounter for screening colonoscopy Special screening for malignant neoplasms, colon documented [facility]* Diagnosis Pre-operative examination- Primary Preoperative examination, [...] (HCC) Morbid obesity [facility]* Diagnosis Dry eye syndrome of bilateral lacrimal glands- Primary Tear film insufficiency, unspecified Punctate keratitis of right eye Punctate keratitis Type 2 diabetes mellitus without retinopathy (HCC) Type II or unspecified type diabetes mellitus without mention of complication, not stated as uncontrolled Regular astigmatism of both eyes Regular astigmatism Presbyopia documented in this encounter [facility] note* Diagnosis Encounter for screening mammogram for breast cancer documented in this encounter [facility] note* Diagnosis Left hand pain Pain in [...] (HCC) Morbid obesity [facility]* Diagnosis 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 [facility] Diagnosis 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 [facility] Diagnosis 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 [facility] Diagnosis 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 [facility] Diagnosis Neuroendocrine neoplasm of stomach- Primary Neuroendocrine cancer Other malignant neoplasm without specification of site [facility] Diagnosis 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 [facility] Diagnosis Complex care coordination- Primary [facility] Diagnosis Neuroendocrine neoplasm of stomach- Primary Neuroendocrine cancer Other malignant neoplasm without specification of site [facility] Diagnosis Microcytic anemia- Primary Iron deficiency anemia, unspecified [facility] Diagnosis Microcytic anemia- Primary Iron deficiency anemia, unspecified Iron deficiency anemia, unspecified iron deficiency anemia type [facility] Diagnosis 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 [facility] Diagnosis Microcytic anemia- Primary Iron deficiency anemia, unspecified Iron deficiency anemia, unspecified iron deficiency anemia type Neuroendocrine cancer Other malignant neoplasm without specification of site [facility] Diagnosis Pre-operative examination- Primary Preoperative [...] for breast cancer [facility] Diagnosis Neuroendocrine neoplasm of stomach [facility] Diagnosis Neuroendocrine neoplasm of stomach [facility] Diagnosis Neuroendocrine neoplasm of stomach- Primary Neuroendocrine cancer Other malignant neoplasm without specification of site Hepatosplenomegaly Other chronic nonalcoholic liver disease Elevated transaminase level Nonspecific elevation of levels of transaminase or lactic acid dehydrogenase (LDH) [facility] Narrative No data available for this section [facility] Hospital Discharge instructions Additional Instructions [facility]charge instructions Additional Instructions You have a hand contusion which is treated with rest, ice, Tylenol and ibuprofen. Call the now clinic for follow-up.[facility] Work Phone: Hospital Discharge instructions Additional Instructions Eat yogurt daily or take a probiotic to prevent antibiotic associated diarrhea since the azithromycin is still in your system for another 3 days or so.[facility] Work Phone: Hospital Discharge instructions No data available for this section [facility] Hospital Discharge instructions Additional Instructions Your exam and history indicate that your pain is most likely from neuropathy secondary to your diabetes. Take the prescribed medication as directed to help control symptoms. If you develop a fever noticed increased redness or swelling or have any further concerns please return to the ER for repeat evaluation.[facility] Work Phone: Progress note No data available for this section [facility] Reason for referral (narrative)* Diagnostic Procedure Only (Urgent) - Closed Specialty Diagnoses / Procedures Referred By Contac t Referred To Contact XR IMAGING Diagnoses Left hand pain Procedures XR HAND GENERAL 3V PA/LAT/OBL LEFT RADEX HAND MINIMUM 3 VIEWS Sasha Schroeder APRN.DESIZING MACHINE OFFBEARER [address] [place] [address] Xr Imaging Referral ID Status Reason Start Date Expiration Date V isits Requested Visits Authorized [id number] Closed Auto-Generate d Referral 10/16/2021 11/15/2022 1 1 [facility] for referral (narrative)* Diagnostic Procedure Only (Routine) - Pending Review Specialty Diagnoses / Procedures Referred By Contac t Referred To Contact XR IMAGING Diagnoses Bilateral foot pain Procedures XR FOOT GENERAL 3V AP/LAT/OBL BILATERAL RADEX FOOT COMPLETE MINIMUM 3 VIEWS Louis Darby [address] [place] [address] Xr Imaging Referral ID Status Reason Start Date Expiration Date Visits Requested Visits Authorized [id number] Pending Review Auto-Generat ed Referral 11/16/2022 12/16/2023 1 1 [facility] for referral (narrative)* Diagnostic Procedure Only (Routine) - Pending Review Specialty Diagnoses / Procedures Referred By Sherita t Referred To Contact BR IMAGING Diagnoses Encounter for screening mammogram for breast cancer Procedures AMY SCREENING SCREENING MAMMOGRAPHY BI 2-VIEW BREAST INC Papa Chacko MD [address] [place] [address] [facility] [address] [place] [address] Referral ID Status Reason Start Date Expiration Date Visits Requested Visits Authorized [id number] Pending Review Auto-Generat ed Referral 12/18/2023 01/16/2025 1 1 [facility] for referral (narrative)* Diagnostic Procedure Only (Urgent) - Closed Specialty Diagnoses / Procedures Referred By Sherita t Referred To Contact XR IMAGING Diagnoses Left hand pain Procedures XR HAND GENERAL 3V PA/LAT/OBL LEFT RADEX HAND MINIMUM 3 VIEWS Sasha Schroeder, KHADIJAH.DESIZING MACHINE OFFBEARER [address] [place] [address] [place] [address] Referral ID Status Reason Start Date Expiration Date V isits Requested Visits Authorized [id number] Closed Auto-Generate d Referral 10/16/2021 11/15/2022 1 1 [facility] for referral (narrative)No reason for referral [facility]: Reason for visit Narrative* Diagnostic Procedure Only (Urgent) - Closed Specialty Diagnoses / Procedures Referred By Contac t Referred To Contact XR IMAGING Diagnoses Hand injuries, right, initial encounter Procedures XR HAND GENERAL 3V PA/LAT/OBL RIGHT RADEX HAND MINIMUM 3 VIEWS Ravinder Cervantes APRN.DESIZING MACHINE OFFBEARER [address] [place] [address] [place] [address] Referral ID Status Reason Start Date Expiration Date V isits Requested Visits Authorized [id number] Closed Auto-Generate d Referral 06/15/2022 07/15/2023 1 1 [facility] for visit Narrative* Diagnostic Procedure Only (Urgent) - Closed Specialty Diagnoses / Procedures Referred By Contac t Referred To Contact XR IMAGING Diagnoses Left hand pain Procedures XR HAND GENERAL 3V PA/LAT/OBL LEFT RADEX HAND MINIMUM 3 VIEWS Alexandre Sasha, MUTTON PUNCHER.DESIZING MACHINE OFFBEARER [address] [place] [address] [place] [address] Referral ID Status Reason Start Date Expiration Date V isits Requested Visits Authorized [id number] Closed Auto-Generate d Referral 10/16/2021 11/15/2022 1 1 [facility] for visit Narrative* Endoscopy (Routine) - New Request Specialty Diagnoses / Procedures Referred By Sherita t Referred To Contact Diagnoses Neuroendocrine tumor Procedures INTERVENTIONAL UPPER ENDOSCOPY IN EGD TRANSORAL ENDOSCOPIC MUCOSAL RESECTION Blas Merrill MD [address] [place] [address] [place] [address] Phone: tel: fax: Referral ID Status Reason Start Date Expiration Date V isits Requested Visits Authorized [id number] New Request 06/23/2024 07/18/2025 1 1 [facility] for visit Narrative* MRI/CAT Scan (Routine) - Closed Specialty Diagnoses / Procedures Referred By Contac t Referred To Contact Diagnoses Neuroendocrine neoplasm of stomach Procedures CT ABDOMEN/PELVIS WITH AND WITHOUT CONTRAST CHG CT ABD&PLV W/O CNTRST 1/BTH FLWD CNTRST 1/BTH Thomas Montero, MUTTON PUNCHER-DESIZING MACHINE OFFBEARER [address] [place] [address] Phone: tel: fax: Referral ID Status Reason Start Date Expiration Date Visits Re quested Visits Authorized [id number] Closed 08/27/2024 09/21/2025 1 1 [facility] Advance Directives Documents on File Type Date Recorded Patient Rn Teacher Expl anation Advance Directive(s) 02/24/2018 8:23 AM Advance Directive(s) 02/07/2018 12:23 PM Documents on File Type Date Recorded Patient Rn Teacher Expl anation Advance Directive(s) 02/24/2018 8:23 AM Advance Directive(s) 02/07/2018 12:23 PM Advance Directive Response Recorded Date/ Time Advance Directives No March 20, 2016 7:50am Living Will No February 09, 2022 5:58pm Power of Beer Still Runner Compounder No February 09 5:58pm Advance Directive Response Recorded Date/ Time Advance Directives No March 20, 2016 7:50am Living Will No February 09, 2022 8:41pm Power of Beer Still Runner Compounder No February 09 8:41pm Advance Directive Response Recorded Date/ Time Advance Directives No March 20, 2016 6:50am Living Will No June 08, 022 9:26pm Power of Beer Still Runner Compounder No June 08, 2022 9:26pm Advance Directive Response Recorded Date/ Time Advance Directives No March 20, 2016 6:50am Living Will No June 17, 2 022 1:03pm Power of Beer Still Runner Compounder No June 17, 2022 1:03pm Advance Directive Response Recorded Date/ Time Advance Directives No March 20, 2016 6:50am Living Will No August 12 3:33pm Power of Beer Still Runner Compounder No August 12, 2022 3:33pm Advance Directive Response Recorded Date/ Time Advance Directives No March 20, 2016 6:50am Living Will No September 21, 2022 2:19pm Power of Beer Still Runner Compounder No September 21 2:19pm Advance Directive Response Recorded Date/ Time Advance Directives No March 20, 2016 7:50am Living Will No October 10, 2022 5:09am Power of Beer Still Runner Compounder No October 10 5:09am Advance Directive Response Recorded Date/ Time Advance Directives No March 20, 2016 7:50am Living Will No October 25, 2022 9:20am Power of Beer Still Runner Compounder No October 25 9:20am Advance Directive Response Recorded Date/ Time Advance Directives No March 20, 2016 7:50am Living Will No January 07, 2023 1:17pm Power of Beer Still Runner Compounder No January 07 1:17pm Advance Directive Response Recorded Date/ Time Advance Directives No March 20, 2016 7:50am Living Will No January 20, 2023 5 :47pm Power of Beer Still Runner Compounder No January 20, 2023 5:47pm Advance Directive Response Recorded Date/ Time Advance Directives No March 20, 2016 7:50am Living Will No April 18, 2023 5:40pm Power of Beer Still Runner Compounder No March 5:40pm Advance Directive Response Recorded Date/ Time Living Will No March 04 12:42pm Power of Beer Still Runner Compounder No March 04 024 12:42pm Living Will No April 08, 2024 11:01am Power of Beer Still Runner Compounder No March 11:01am Living Will No July 28 3:38pm Power of Beer Still Runner Compounder No July 28 3:38pm Living Will No September 30, 2024 1:34am Power of Beer Still Runner Compounder No September 30 1:34am Advance Directives No March 11:01am Advance Directive Response Recorded Date/ Time Living Will No April 08, 2024 11:01am Do you have a Healthcare Power of Beer Still Runner Compounder? No April 08, 2024 11:01am Living Will No July 28 3:38pm Do you have a Healthcare Power of Beer Still Runner Compounder? No July 28, 2024 3:38pm Living Will No September 30, 2024 1:34am Do you have a Healthcare Power of Beer Still Runner Compounder? No September 30, 2024 1:34am Advance Directives No March 11:01am Advance Directive Response Recorded Date/ Time Living Will No April 08, 2024 11:01am Do you have a Healthcare Power of Beer Still Runner Compounder? No April 08, 2024 11:01am Living Will No July 28 3:38pm Do you have a Healthcare Power of Beer Still Runner Compounder? No July 28, 2024 3:38pm Living Will No September 30, 2024 1:34am Do you have a Healthcare Power of Beer Still Runner Compounder? No September 30, 2024 1:34am Living Will No November 03, 2024 9:57pm Do you have a Healthcare Power of Beer Still Runner Compounder? No November 03, 2024 9:57pm Advance Directives No March 11:01am Advance Directive Response Recorded Date/ Time Living Will No April 08, 2024 11:01am Do you have a Healthcare Power of Beer Still Runner Compounder? No April 08, 2024 11:01am Living Will No September 30, 2024 1:34am Do you have a Healthcare Power of Beer Still Runner Compounder? No September 30, 2024 1:34am Living Will No November 03, 2024 9:57pm Do you have a Healthcare Power of Beer Still Runner Compounder? No November 03, 2024 9:57pm Advance Directives No March 11:01am Advance Directive Response Recorded Date/ Time Living Will No September 30, 2024 1:34am Do you have a Healthcare Power of Beer Still Runner Compounder? No September 30, 2024 1:34am Living Will No November 03, 2024 9:57pm Do you have a Healthcare Power of Beer Still Runner Compounder? No November 03, 2024 9:57pm Do you have a Healthcare Power of Beer Still Runner Compounder? No January 10, 2025 10:30pm Advance Directives No March 11:01am Advance Directive Response Recorded Date/ Time Living Will No September 30, 2024 1:34am Do you have a Healthcare Power of Beer Still Runner Compounder? No September 30, 2024 1:34am Living Will No November 03, 2024 9:57pm Do you have a Healthcare Power of Beer Still Runner Compounder? No November 03, 2024 9:57pm Do you have a Healthcare Power of Beer Still Runner Compounder? No January 11, 2025 1:30am Advance Directives No March 11:01am Advance Directive Response Recorded Date/ Time Living Will No November 03, 2024 9:57pm Do you have a Healthcare Power of Beer Still Runner Compounder? No November 03, 2024 9:57pm Do you have a Healthcare Power of Beer Still Runner Compounder? No January 11, 2025 1:30am Advance Directives No March 11:01am Reason for Referral Specialty Diagnoses / Procedures Referred By Sherita mcguire Referred To Contact Endocrinology Diagnoses Uncontrolled type 2 diabetes mellitus with hyperglycemia (HCC) Hypothyroidism, unspecified type Procedures CONSULT TO ENDOCRINOLOGY OFFICE/OUTPATIENT [facility] 60-74 MINUTES Papa Douglass MD [address] [place] [address] Referral ID Status Reason Start Date Expiration Date Visits Requested Visits Authorized [id number] Pending Review PCP Requested Referral 02/08/2022 02/08/2023 1 1 Specialty Diagnoses / Procedures Referred By Contac t Referred To Contact Diagnoses Uncontrolled type 2 diabetes mellitus with hyperglycemia (HCC) Procedures CONSULT TO DIABETES EDUCATION OFFICE/OUTPATIENT [facility] 60-74 MINUTES Gretchen Fox, MUTTON PUNCHER.DESIZING MACHINE OFFBEARER [address] [place] [address] Referral ID Status Reason Start Date Expiration Date Visits Requested Visits Authorized [id number] Pending Review PCP Requested Referral 03/16/2022 03/16/2023 1 1 Specialty Diagnoses / Procedures Referred By Contac t Referred To Contact Allergy Diagnoses Allergy to multiple antibiotics Procedures CONSULT TO ALLERGY/IMMUNOLOGY OFFICE/OUTPATIENT [facility] 60-74 MINUTES Mela Murphy, MUTTON PUNCHER.DESIZING MACHINE OFFBEARER [address] [place] [address] Referral ID Status Reason Start Date Expiration Date Visits Requested Visits Authorized [id number] Pending Review PCP Requested Referral 08/16/2022 08/14/2023 1 1 Specialty Diagnoses / Procedures Referred By Contac t Referred To Contact Endocrinology Diagnoses Type 2 diabetes mellitus without complication, with long-term current use of insulin (HCC) Hypothyroidism, unspecified type Procedures CONSULT TO ENDOCRINOLOGY OFFICE/OUTPATIENT [facility] 60-74 MINUTES Papa Douglass MD [address] [place] [address] Referral ID Status Reason Start Date Expiration Date Visits Requested Visits Authorized [id number] Pending Review PCP Requested Referral 11/12/2022 11/12/2023 1 1 Specialty Diagnoses / Procedures Referred By Contac t Referred To Contact Vascular Surgery Diagnoses Venous insufficiency Procedures CONSULT TO VASCULAR SURGERY OFFICE/OUTPATIENT [facility] 60-74 MINUTES Louis Darby [address] [place] [address] Referral ID Status Reason Start Date Expiration Date Visits Requested Visits Authorized [id number] Pending Review PCP Requested Referral 01/08/2023 04/08/2023 1 1 Specialty Diagnoses / Procedures Referred By Contac t Referred To Contact General Surgery Diagnoses Colitis Encounter for screening colonoscopy Procedures CONSULT TO GENERAL SURGERY OFFICE/OUTPATIENT NEW HIGH MDM 60-74 MINUTES Papa Douglass MD [address] [place] [address] Referral ID Status Reason Start Date Expiration Date Visits Requested Visits Authorized [id number] Pending Review PCP Requested Referral 3 05/02/2024 1 1 Specialty Diagnoses / Procedures Referred By Contac t Referred To Contact Diagnoses Neuroendocrine tumor Procedures UPPER EUS IN ESOPHAGOGASTRODUODENOSCOPY US SCOPE W/ADJ STRXRS Karolina Piedra, [employer]ACHINE OFFBEARER, DNP [address] [place] [address] Referral ID Status Reason Start Date Expiration Date V isits Requested Visits Authorized [id number] New Request 05/07/2024 06/01/2025 1 1 [facility]ty Diagnoses / [facility] Ref[facility] To Contact Diagnoses Neuroendocrine tumor Procedures NUC PET NEUROENDOCRINE CHG PET IMAGING CT ATTENUATION SKULL BASE MID-THIGH Karolina Piedra, [employer]ING [employer]ACHINE OFFBEARER, DNP [address] [place] [address] Referral ID Status Reason Start Date Expiration Date V isits Requested Visits Authorized [id number] New Request 05/07/2024 06/01/2025 1 1 Specialty Diagnoses / Procedures [facility] Referred To Contact Clinical Pathology/Laboratory Medicine Diagnoses Neuroendocrine tumor Karolina Piedra, [employer]ING MACHINE OFFBEARER, DNP [address] [place] [address] Referral ID Status Reason Start Date Expiration Date V isits Requested Visits Authorized [id number] New Request 05/07/2024 06/01/2025 1 1 Specialty Diagnoses / Procedures Referred By Contac t Referred To Contact Diagnoses Neuroendocrine tumor Procedures INTERVENTIONAL UPPER ENDOSCOPY IN EGD TRANSORAL ENDOSCOPIC MUCOSAL RESECTION Blas Merrill MD [address] [facility] [address] [place] [address] Referral ID Status Reason Start Date Expiration Date V isits Requested Visits Authorized [id number] New Request 06/23/2024 07/18/2025 1 1 Specialty Diagnoses / Procedures Referred By Sherita mcguire Referred To Contact Diagnoses Neuroendocrine neoplasm of stomach Neuroendocrine cancer Procedures CT ABDOMEN/PELVIS WITH AND WITHOUT CONTRAST CHG CT ABD&PLV W/O CNTRST H FLWD CNTRST Scott Berrios MD, MPH [address] [place] [address] [place] [address] Referral ID Status Reason Start Date Expiration Date V isits Requested Visits Authorized [id number] New Request 07/30/2024 08/24/2025 1 1 Specialty Diagnoses / Procedures Referred By Sherita mcguire Referred To Contact Diagnoses Neuroendocrine tumor Procedures NUC PET HEAD TO THIGH Karolina Piedra, [employer]ING MACHINE OFFBEARER, DNP [address] [place] [address] Referral ID Status Reason Start Date Expiration Date Visits Re quested Visits Authorized [id number] Closed 07/02/2024 07/27/2025 1 1 Chief Complaint [...] Admit Date ABNORMAL LIVER FUNCTION June 16 11:46am NAFLD July 24, 2024 9: 39am [...] 45.0-49.9, ad ult January 11, 2025 12:38am Chief Complaint Admit Date 4 M FU, [...] 01am SINUS COMPLAINT/FRANCO/COUGH December 30, 2024 10:35am UTI, LEUKOCYTOSIS, HYPERGLYCEMIA, ADR AN D January 11, 2025 1:04am UTI, LEUKOCYTOSIS, HYPERGLYCEMIA, ADR AN D January 12, 2025 7:37am UTI, LEUKOCYTOSIS, HYPERGLYCEMIA, ADR AN D January 13, 2025 7:36am Reason for Visit Admit Date Diabetes September [...] 12:32pm Acute cystitis without hematuria January 112024 1:04am Adverse drug reaction January 11, 2025 1: 04am Constipation January 11, 2025 1:04 am History of COVID-19 January 11, 2025 1:04 am Hyperglycemia due to type 2 diabetes snehal litus January 11, 2025 1:04am Leukocytosis January 11, 2025 1:04 am Morbid obesity with BMI of 45.0-49.9, ad ult January 11, 2025 1:04am Nausea & vomiting January 11, 2025 1:04 am Urinary tract infection January 11, 2025 1:04am Chief Complaint Admit Date J45.909 - Unspecified asthma, uncomplica mary October [...] 01am SINUS COMPLAINT/FRANCO/COUGH December 30, 2024 10:35am UTI, LEUKOCYTOSIS, HYPERGLYCEMIA, ADR AN D January 11, 2025 1:04am UTI, LEUKOCYTOSIS, HYPERGLYCEMIA, ADR AN D January 12, 2025 7:37am UTI, LEUKOCYTOSIS, HYPERGLYCEMIA, ADR AN D January 13, 2025 7:36am 3 M FU February 02, 2025 12:3 1pm Reason for Visit Admit Date Asthma October 30, 2024 12: 32pm Hypoxemia October 30, 2024 12: 32pm Obstructive sleep apnea October 30, 2024 12:32pm Acute cystitis without hematuria January 112024 1:04am Leukocytosis January 11, 2025 1:04 am Nausea & vomiting January 11, 2025 1:04 am Constipation January 11, 2025 1:04 am Morbid obesity with BMI of 45.0-49.9, ad ult January 11, 2025 1:04am Urinary tract infection January 11, 2025 1:04am Adverse drug reaction January 11, 2025 1: 04am History of COVID-19 January 11, 2025 1:04 am Hyperglycemia due to type 2 diabetes snehal litus January 11, 2025 1:04am Asthma February 02, 2025 12:3 1pm Hypoxemia February 02, 2025 12:3 1pm Obstructive sleep apnea February 02, 2025 12:31pm Chief Complaint Admit Date J45.909 - Unspecified asthma, uncomplica mary October 14, 2024 11:14am Obstructive sleep apnea October 23, 2024 8:00pm 8 WK FU October 30, 2024 12: 32pm HYPERGLYCEMIA November 03, 2024 9:0 0pm KODI November 12, 2024 11: 01am SINUS COMPLAINT/FRANCO/COUGH December 30, 2024 10:35am UTI, LEUKOCYTOSIS, HYPERGLYCEMIA, ADR AN D January 11, 2025 1:04am UTI, LEUKOCYTOSIS, HYPERGLYCEMIA, ADR AN D January 12, 2025 7:37am UTI, LEUKOCYTOSIS, HYPERGLYCEMIA, ADR AN D January 13, 2025 7:36am 3 M FU February 02, 2025 12:3 1pm 4 M FU, RS /05 February 04, 2025 11:0 9am Reason for Visit Admit Date Asthma October 30, 2024 12: 32pm Hypoxemia October 30, 2024 12: 32pm Obstructive sleep apnea October 30, 2024 12:32pm Acute cystitis without hematuria January 112024 1:04am Leukocytosis January 11, 2025 1:04 am Nausea & vomiting January 11, 2025 1:04 am Constipation January 11, 2025 1:04 am Morbid obesity with BMI of 45.0-49.9, ad ult January 11, 2025 1:04am Urinary tract infection January 11, 2025 1:04am Adverse drug reaction January 11, 2025 1: 04am History of COVID-19 January 11, 2025 1:04 am Hyperglycemia due to type 2 diabetes snehal litus January 11, 2025 1:04am Asthma February 02, 2025 12:3 1pm Hypoxemia February 02, 2025 12:3 1pm Obstructive sleep apnea February 02, 2025 12:31pm Diabetes February 04, 2025 11:0 9am High triglycerides February 04, 2025 11:0 9am Hypothyroidism February 04, 2025 11:0 9am Obesity February 04, 2025 11:0 9am Medications Administered Section Active Administered Medications - [...] or prosecute any alcohol or drug abuse patient.[facility] the event this information is protected by the Federal Confidentiality of Alcohol and Drug Abuse Patient Records regulations: The Federal rules restrict any use of the information to criminally investigate or prosecute any alcohol or drug abuse patient.[facility] HospitalIn the event this information is protected by the Federal Confidentiality of Alcohol and Drug Abuse Patient Records regulations: The Federal rules restrict any use of the information to criminally investigate or prosecute any alcohol or drug abuse patient.[facility] HospitalIn the event this information is protected by the Federal Confidentiality of Alcohol and Drug Abuse Patient Records regulations: The Federal rules restrict any use of the information to criminally investigate or prosecute any alcohol or drug abuse patient.[facility] HospitalIn the event this information is protected by the Federal Confidentiality of Alcohol and Drug Abuse Patient Records regulations: The Federal rules restrict any use of the information to criminally investigate or prosecute any alcohol or drug abuse patient.[facility] HospitalIn the event this information is protected by the Federal Confidentiality of Alcohol and Drug Abuse Patient Records regulations: The Federal rules restrict any use of the information to criminally investigate or prosecute any alcohol or drug abuse patient.[facility] HospitalIn the event this information is protected by the Federal Confidentiality of Alcohol and Drug Abuse Patient Records regulations: The Federal rules restrict any use of the information to criminally investigate or prosecute any alcohol or drug abuse patient.[facility] HospitalIn the event this information is protected by the Federal Confidentiality of Alcohol and Drug Abuse Patient Records regulations: The Federal rules restrict any use of the information to criminally investigate or prosecute any alcohol or drug abuse patient.[facility] HospitalIn the event this information is protected by the Federal Confidentiality of Alcohol and Drug Abuse Patient Records regulations: The Federal rules restrict any use of the information to criminally investigate or prosecute any alcohol or drug abuse patient.[facility] HospitalIn the event this information is protected by the Federal Confidentiality of Alcohol and Drug Abuse Patient Records regulations: The Federal rules restrict any use of the information to criminally investigate or prosecute any alcohol or drug abuse patient.[facility] HospitalIn the event this information is protected by the Federal Confidentiality of Alcohol and Drug Abuse Patient Records regulations: The Federal rules restrict any use of the information to criminally investigate or prosecute any alcohol or drug abuse patient.[facility] HospitalIn the event this information is protected by the Federal Confidentiality of Alcohol and Drug Abuse Patient Records regulations: The Federal rules restrict any use of the information to criminally investigate or prosecute any alcohol or drug abuse patient.[facility] HospitalIn the event this information is protected by the Federal Confidentiality of Alcohol and Drug Abuse Patient Records regulations: The Federal rules restrict any use of the information to criminally investigate or prosecute any alcohol or drug abuse patient.[facility] HospitalIn the event this information is protected by the Federal Confidentiality of Alcohol and Drug Abuse Patient Records regulations: The Federal rules restrict any use of the information to criminally investigate or prosecute any alcohol or drug abuse patient.[facility] HospitalIn the event this information is protected by the Federal Confidentiality of Alcohol and Drug Abuse Patient Records regulations: The Federal rules restrict any use of the information to criminally investigate or prosecute any alcohol or drug abuse patient.[facility] HospitalIn the event this information is protected by the Federal Confidentiality of Alcohol and Drug Abuse Patient Records regulations: The Federal rules restrict any use of the information to criminally investigate or prosecute any alcohol or drug abuse patient.[facility] HospitalIn the event this information is protected by the Federal Confidentiality of Alcohol and Drug Abuse Patient Records regulations: The Federal rules restrict any use of the information to criminally investigate or prosecute any alcohol or drug abuse patient.[facility] HospitalIn the event this information is protected by the Federal Confidentiality of Alcohol and Drug Abuse Patient Records regulations: The Federal rules restrict any use of the information to criminally investigate or prosecute any alcohol or drug abuse patient.[facility] HospitalIn the event this information is protected by the Federal Confidentiality of Alcohol and Drug Abuse Patient Records regulations: The Federal rules restrict any use of the information to criminally investigate or prosecute any alcohol or drug abuse patient.[facility] HospitalIn the event this information is protected by the Federal Confidentiality of Alcohol and Drug Abuse Patient Records regulations: The Federal rules restrict any use of the information to criminally investigate or prosecute any alcohol or drug abuse patient.[facility] HospitalIn the event this information is protected by the Federal Confidentiality of Alcohol and Drug Abuse Patient Records regulations: The Federal rules restrict any use of the information to criminally investigate or prosecute any alcohol or drug abuse patient.[facility] HospitalIn the event this information is protected by the Federal Confidentiality of Alcohol and Drug Abuse Patient Records regulations: The Federal rules restrict any use of the information to criminally investigate or prosecute any alcohol or drug abuse patient.[facility] HospitalIn the event this information is protected by the Federal Confidentiality of Alcohol and Drug Abuse Patient Records regulations: The Federal rules restrict any use of the information to criminally investigate or prosecute any alcohol or drug abuse patient.[facility] HospitalIn the event this information is protected by the Federal Confidentiality of Alcohol and Drug Abuse Patient Records regulations: The Federal rules restrict any use of the information to criminally investigate or prosecute any alcohol or drug abuse patient.[facility] HospitalIn the event this information is protected by the Federal Confidentiality of Alcohol and Drug Abuse Patient Records regulations: The Federal rules restrict any use of the information to criminally investigate or prosecute any alcohol or drug abuse patient.[facility] HospitalIn the event this information is protected by the Federal Confidentiality of Alcohol and Drug Abuse Patient Records regulations: The Federal rules restrict any use of the information to criminally investigate or prosecute any alcohol or drug abuse patient.[facility] HospitalIn the event this information is protected by the Federal Confidentiality of Alcohol and Drug Abuse Patient Records regulations: The Federal rules restrict any use of the information to criminally investigate or prosecute any alcohol or drug abuse patient.[facility] HospitalIn the event this information is protected by the Federal Confidentiality of Alcohol and Drug Abuse Patient Records regulations: The Federal rules restrict any use of the information to criminally investigate or prosecute any alcohol or drug abuse patient.[facility] HospitalIn the event this information is protected by the Federal Confidentiality of Alcohol and Drug Abuse Patient Records regulations: The Federal rules restrict any use of the information to criminally investigate or prosecute any alcohol or drug abuse patient.[facility] HospitalIn the event this information is protected by the Federal Confidentiality of Alcohol and Drug Abuse Patient Records regulations: The Federal rules restrict any use of the information to criminally investigate or prosecute any alcohol or drug abuse patient.[facility] HospitalIn the event this information is protected by the Federal Confidentiality of Alcohol and Drug Abuse Patient Records regulations: The Federal rules restrict any use of the information to criminally investigate or prosecute any alcohol or drug abuse patient.[facility] the event this information is protected by the Federal Confidentiality of Alcohol and Drug Abuse Patient Records regulations: The Federal rules restrict any use of the information to criminally investigate or prosecute any alcohol or drug abuse patient.[facility] HospitalIn the event this information is protected by the Federal Confidentiality of Alcohol and Drug Abuse Patient Records regulations: The Federal rules restrict any use of the information to criminally investigate or prosecute any alcohol or drug abuse patient.[facility] HospitalIn the event this information is protected by the Federal Confidentiality of Alcohol and Drug Abuse Patient Records regulations: The Federal rules restrict any use of the information to criminally investigate or prosecute any alcohol or drug abuse patient.[facility]In the event this information is protected by the Federal Confidentiality of Alcohol and Drug Abuse Patient Records regulations: The Federal rules restrict any use of the information to criminally investigate or prosecute any alcohol or drug abuse patient.[facility] HospitalIn the event this information is protected by the Federal Confidentiality of Alcohol and Drug Abuse Patient Records regulations: The Federal rules restrict any use of the information to criminally investigate or prosecute any alcohol or drug abuse patient.[facility] HospitalIn the event this information is protected by the Federal Confidentiality of Alcohol and Drug Abuse Patient Records regulations: The Federal rules restrict any use of the information to criminally investigate or prosecute any alcohol or drug abuse patient.[facility] HospitalIn the event this information is protected by the Federal Confidentiality of Alcohol and Drug Abuse Patient Records regulations: The Federal rules restrict any use of the information to criminally investigate or prosecute any alcohol or drug abuse patient.[facility] HospitalIn the event this information is protected by the Federal Confidentiality of Alcohol and Drug Abuse Patient Records regulations: The Federal rules restrict any use of the information to criminally investigate or prosecute any alcohol or drug abuse patient.[facility] HospitalIn the event this information is protected by the Federal Confidentiality of Alcohol and Drug Abuse Patient Records regulations: The Federal rules restrict any use of the information to criminally investigate or prosecute any alcohol or drug abuse patient.[facility] HospitalIn the event this information is protected by the Federal Confidentiality of Alcohol and Drug Abuse Patient Records regulations: The Federal rules restrict any use of the information to criminally investigate or prosecute any alcohol or drug abuse patient.[facility] HospitalIn the event this information is protected by the Federal Confidentiality of Alcohol and Drug Abuse Patient Records regulations: The Federal rules restrict any use of the information to criminally investigate or prosecute any alcohol or drug abuse patient.[facility] HospitalIn the event this information is protected by the Federal Confidentiality of Alcohol and Drug Abuse Patient Records regulations: The Federal rules restrict any use of the information to criminally investigate or prosecute any alcohol or drug abuse patient.[facility] HospitalIn the event this information is protected by the Federal Confidentiality of Alcohol and Drug Abuse Patient Records regulations: The Federal rules restrict any use of the information to criminally investigate or prosecute any alcohol or drug abuse patient.[facility] HospitalIn the event this information is protected by the Federal Confidentiality of Alcohol and Drug Abuse Patient Records regulations: The Federal rules restrict any use of the information to criminally investigate or prosecute any alcohol or drug abuse patient.[facility] HospitalIn the event this information is protected by the Federal Confidentiality of Alcohol and Drug Abuse Patient Records regulations: The Federal rules restrict any use of the information to criminally investigate or prosecute any alcohol or drug abuse patient.[facility] HospitalIn the event this information is protected by the Federal Confidentiality of Alcohol and Drug Abuse Patient Records regulations: The Federal rules restrict any use of the information to criminally investigate or prosecute any alcohol or drug abuse patient.[facility] HospitalIn the event this information is protected by the Federal Confidentiality of Alcohol and Drug Abuse Patient Records regulations: The Federal rules restrict any use of the information to criminally investigate or prosecute any alcohol or drug abuse patient.[facility] HospitalIn the event this information is protected by the Federal Confidentiality of Alcohol and Drug Abuse Patient Records regulations: The Federal rules restrict any use of the information to criminally investigate or prosecute any alcohol or drug abuse patient.[facility] HospitalIn the event this information is protected by the Federal Confidentiality of Alcohol and Drug Abuse Patient Records regulations: The Federal rules restrict any use of the information to criminally investigate or prosecute any alcohol or drug abuse patient.[facility] HospitalIn the event this information is protected by the Federal Confidentiality of Alcohol and Drug Abuse Patient Records regulations: The Federal rules restrict any use of the information to criminally investigate or prosecute any alcohol or drug abuse patient.[facility] HospitalIn the event this information is protected by the Federal Confidentiality of Alcohol and Drug Abuse Patient Records regulations: The Federal rules restrict any use of the information to criminally investigate or prosecute any alcohol or drug abuse patient.[facility] HospitalIn the event this information is protected by the Federal Confidentiality of Alcohol and Drug Abuse Patient Records regulations: The Federal rules restrict any use of the information to criminally investigate or prosecute any alcohol or drug abuse patient.[facility] HospitalIn the event this information is protected by the Federal Confidentiality of Alcohol and Drug Abuse Patient Records regulations: The Federal rules restrict any use of the information to criminally investigate or prosecute any alcohol or drug abuse patient.[facility] HospitalIn the event this information is protected by the Federal Confidentiality of Alcohol and Drug Abuse Patient Records regulations: The Federal rules restrict any use of the information to criminally investigate or prosecute any alcohol or drug abuse patient.[facility] HospitalIn the event this information is protected by the Federal Confidentiality of Alcohol and Drug Abuse Patient Records regulations: The Federal rules restrict any use of the information to criminally investigate or prosecute any alcohol or drug abuse patient.[facility] HospitalIn the event this information is protected by the Federal Confidentiality of Alcohol and Drug Abuse Patient Records regulations: The Federal rules restrict any use of the information to criminally investigate or prosecute any alcohol or drug abuse patient.[facility] HospitalIn the event this information is protected by the Federal Confidentiality of Alcohol and Drug Abuse Patient Records regulations: The Federal rules restrict any use of the information to criminally investigate or prosecute any alcohol or drug abuse patient.[facility] HospitalIn the event this information is protected by the Federal Confidentiality of Alcohol and Drug Abuse Patient Records regulations: The Federal rules restrict any use of the information to criminally investigate or prosecute any alcohol or drug abuse patient.[facility] HospitalIn the event this information is protected by the Federal Confidentiality of Alcohol and Drug Abuse Patient Records regulations: The Federal rules restrict any use of the information to criminally investigate or prosecute any alcohol or drug abuse patient.[facility] HospitalIn the event this information is protected by the Federal Confidentiality of Alcohol and Drug Abuse Patient Records regulations: The Federal rules restrict any use of the information to criminally investigate or prosecute any alcohol or drug abuse patient.[facility] HospitalIn the event this information is protected by the Federal Confidentiality of Alcohol and Drug Abuse Patient Records regulations: The Federal rules restrict any use of the information to criminally investigate or prosecute any alcohol or drug abuse patient.[facility] HospitalIn the event this information is protected by the Federal Confidentiality of Alcohol and Drug Abuse Patient Records regulations: The Federal rules restrict any use of the information to criminally investigate or prosecute any alcohol or drug abuse patient.[facility] HospitalIn the event this information is protected by the Federal Confidentiality of Alcohol and Drug Abuse Patient Records regulations: The Federal rules restrict any use of the information to criminally investigate or prosecute any alcohol or drug abuse patient.[facility] HospitalIn the event this information is protected by the Federal Confidentiality of Alcohol and Drug Abuse Patient Records regulations: The Federal rules restrict any use of the information to criminally investigate or prosecute any alcohol or drug abuse patient.[facility] HospitalIn the event this information is protected by the Federal Confidentiality of Alcohol and Drug Abuse Patient Records regulations: The Federal rules restrict any use of the information to criminally investigate or prosecute any alcohol or drug abuse patient.[facility] HospitalIn the event this information is protected by the Federal Confidentiality of Alcohol and Drug Abuse Patient Records regulations: The Federal rules restrict any use of the information to criminally investigate or prosecute any alcohol or drug abuse patient.[facility] Reason for Visit (unrecogniz ed section [...] Referred By Sherita mcguire Referred To Contact Endocrinology Diagnoses Uncontrolled type 2 diabetes mellitus with hyperglycemia (HCC) Hypothyroidism, unspecified type Procedures CONSULT TO ENDOCRINOLOGY OFFICE/OUTPATIENT FORMERLY [facility], [facility]–1983 MDM 60-74 MINUTES Papa Douglass MD [address] [place] [address] Referral ID Status Reason Start Date Expiration Date Visits Requested Visits Authorized [id number] Pending Review PCP Requested Referral 02/08/2022 02/08/2023 [...] s Specialty Diagnoses / Procedures Referred By Sherita mcguire Referred To Contact Allergy Diagnoses Allergy to multiple antibiotics Procedures CONSULT TO ALLERGY/IMMUNOLOGY OFFICE/OUTPATIENT NEW HIGH MDM 60-74 MINUTES Mela Murphy APRN.DESIZING MACHINE OFFBEARER [address] [place] [address] Referral ID Status Reason Start Date Expiration Date Visits Requested Visits Authorized [id number] Pending Review PCP Requested Referral 08/16/2022 08/14/2023 [...] screening Specialty Diagnoses / Procedures Referred By Sherita mcguire Referred To Contact General Surgery Diagnoses Colitis Encounter for screening colonoscopy Procedures CONSULT TO GENERAL SURGERY OFFICE/OUTPATIENT NEW HIGH MDM 60-74 MINUTES Papa Douglass MD [address] [place] [address] Referral ID Status Reason Start Date Expiration Date Visits Requested Visits Authorized [id number] Pending Review PCP Requested Referral 05/02/2024 1 1 Reason Comments Consult Reason Comments Abdominal Pain Reason Comments Labs Only Reason Comments New Patient Specialty Diagnoses / Procedures Referred By Contac t Referred To Contact Surgical Oncology Diagnoses Other malignant neuroendocrine tumors Joseluis Riggins, [facility] [address] [place] [address] Blas Rod MD [address] [address] Referral ID Status Reason Start Date Expiration Date Visits Requested Visits Authorized [id number] New Request Surgical Evaluation 04/16/2024 05/11/2025 1 1 Specialty Diagnoses / Procedures Referred By Contac t Referred To Contact Diagnoses Neuroendocrine tumor Procedures UPPER EUS IN ESOPHAGOGASTRODUODENOSCOPY US SCOPE W/ADJ STRXRS Karolina Piedra APRN-CNP, DNP [address] [place] [address] Referral ID Status Reason Start Date Expiration Date V isits Requested Visits Authorized [id number] New Request 05/07/2024 06/01/2025 1 1 Reason Comments Follow-up Reason Comments New Patient Pt was hospitalized in March for bleeding tumor - Dr Rod referred for systemic therapy - not a candidate for surgery Specialty Diagnoses / Procedures Referred By Contac t Referred To Contact Oncology Diagnoses Neuroendocrine tumor Karolina Piedra APRN-CNP DNP [address] [place] [address] Referral ID Status Reason Start Date Expiration Date V isits Requested Visits Authorized [id number] New Request 07/09/2024 08/03/2025 1 1 Specialty Diagnoses / Procedures Referred By Contac t Referred To Contact Diagnoses Neuroendocrine tumor Procedures NUC PET HEAD TO THIGH Karolina Piedra APRN-DESIZING MACHINE OFFBEARER, DNP [address] [place] [address] Referral ID Status Reason Start Date Expiration Date Visits Re quested Visits Authorized [id number] Closed 07/02/2024 07/27/2025 1 1 Reason Onset Date Comments Appointment 07/31/2024 Reason Comments Follow-up New Patient follow u pHas been doing ok since last visit Results Labs and scans compl eted on 08/14/24 Reason Onset Date Comments Lab Review 09/21/2024 Reason Comments Foot Pain (Midfoot) Reason Comments Follow-up (Please send link to listed mobile # [phone] C/o having issues with acid reflux and she was recently diagnosed with COVID and is she is currently on treatment for this Reason Onset Date Comments Other 01/27/2025 Care Teams (unrecognized sec tion and content) Survey Technician Relationship Specialty Start Date End Date Papa Douglass MD [address] [place] [address] PCP - General Family Practice 04/27/10 Kiley Randall [facility] [address] [place] [address] Pharmacist Pharmacy 11/13/19 Jessica Rose, [facility] [address] [place] [address] Pharmacist Pharmacy 02/16/21 Survey Technician Relationship Specialty Start Date End Date Papa Douglass MD [address] [place] [address] PCP - General Family Practice 04/27/10 Kiley Randall [facility] [address] [place] [address] Pharmacist Pharmacy 11/13/19 Jesisca Rose, [facility] [address] [place] [address] Pharmacist Pharmacy 02/16/21 Survey Technician Relationship Specialty Start Date End Date Papa Douglass MD [address] [place] [address] PCP - General Family Practice 04/27/10 Kiley Randall, [facility] [address] [place] [address] Pharmacist Pharmacy 11/13/19 Jessica Rose, [facility] [address] [place] [address] Pharmacist Pharmacy 02/16/21 Survey Technician Relationship Specialty Start Date End Date Papa Douglass MD [address] [facility] [place] [address] PCP - General Family Practice 04/27/10 [facility] [address] [place] [place] [address] Pharmacist Pharmacy 11/13/19 Jessica Rose, [facility] [address] [place] [address] Pharmacist Pharmacy 02/16/21 Survey Technician Relationship Specialty Start Date End Date Papa Douglass MD [address] [place] [address] PCP - General Family Practice 04/27/10 Kiley Randall, [facility] [address] [place] [address] Pharmacist Pharmacy 11/13/19 Jessica Rose, [facility] [address] [place] [address] Pharmacist Pharmacy 02/16/21 Survey Technician Relationship Specialty Start Date End Date Papa Douglass MD [address] [facility] [place] [address] PCP - General Family Practice 04/27/10 Angel Randalli, [facility] [address] [facility] [place] [address] Pharmacist Pharmacy 11/13/19 [facility] [address] [place] [place] [address] Pharmacist Pharmacy 02/16/21 Survey Technician Relationship Specialty Start Date End Date Papa Douglass MD [address] [facility] [place] [address] PCP - General Family Practice 04/27/10 Tonia Angelnoah, [facility] [address] [facility] [place] [address] Pharmacist Pharmacy 11/13/19 Jessica Rose, [facility] [address] [place] [place] [address] Pharmacist Pharmacy 02/16/21 Survey Technician Relationship Specialty Start Date End Date Papa Douglass MD [address] [place] [place] [address] PCP - General Family Practice 04/27/10 Tonia Angelnoah, [facility] [address] [facility] [place] [address] Pharmacist Pharmacy 11/13/19 Jessica Rose, [facility] [address] [facility] [place] [address] Pharmacist Pharmacy 02/16/21 Survey Technician Relationship Specialty Start Date End Date Papa Douglass MD [address] [place] [place] [address] PCP - General Family Practice 04/27/10 Tonia Angelnoah, [facility] [address] [facility] [place] [address] Pharmacist Pharmacy 11/13/19 Jessica Rose, [facility] [address] [place] [place] [address] Pharmacist Pharmacy 02/16/21 Survey Technician Relationship Specialty Start Date End Date Papa Douglass MD [address] [place] [place] [address] PCP - General Family Practice 04/27/10 Tonia Kiley, [facility] [address] [facility] [place] [address] Pharmacist Pharmacy 11/13/19 Milton Jessica, [facility] [address] [place] [place] [address] Pharmacist Pharmacy 02/16/21 Survey Technician Relationship Specialty Start Date End Date Papa Douglass MD [address] [facility] [place] [address] PCP - General Family Practice 04/27/10 Tonia iKley, [facility] [address] [place] [place] [address] Pharmacist Pharmacy 11/13/19 Milton Jessica, [facility] [address] [place] [place] [address] Pharmacist Pharmacy 02/16/21 Survey Technician Relationship Specialty Start Date End Date Papa Douglass MD [address] [facility] [place] [address] PCP - General Family Practice 04/27/10 Kiley Randall, [facility] [address] [facility] [place] [address] Pharmacist Pharmacy 11/13/19 Milton Jessica, [facility] [address] [place] [place] [address] Pharmacist Pharmacy 02/16/21 Survey Technician Relationship Specialty Start Date End Date Papa Douglass MD [address] [place] [place] [address] PCP - General Family Medicine 04/27/10 Kiley Randall, [facility] [address] [place] [address] Pharmacist Pharmacy 11/13/19 Jessica Rose, [facility] [address] [facility] [place] [address] Pharmacist Pharmacy 02/16/21 Survey Technician Relationship Specialty Start Date End Date Papa Douglass MD [address] [facility] [place] [address] PCP - General Family Medicine 04/27/10 Kiley Randall, [facility] [address] [place] [place] [address] Pharmacist Pharmacy 11/13/19 Jessica Rose, [facility] [address] [place] [place] [address] Pharmacist Pharmacy 02/16/21 Survey Technician Relationship Specialty Start Date End Date Papa Douglass MD [address] [place] [place] [address] PCP - General Family Medicine 04/27/10 Kiley Randall, [facility] [address] [place] [address] Pharmacist Pharmacy 11/13/19 Jessica Rose, [facility] [address] [place] [place] [address] Pharmacist Pharmacy 02/16/21 Survey Technician Relationship Specialty Start Date End Date Papa Douglass MD [address] [place] [place] [address] PCP - General Family Medicine 04/27/10 Kiley Randall, [facility] [address] [place] [place] [address] Pharmacist Pharmacy 11/13/19 Milton, Jessica, [facility] [address] [place] [address] Pharmacist Pharmacy 02/16/21 Survey Technician Relationship Specialty Start Date End Date Papa Douglass MD [address] [place] [place] [address] PCP - General Family Medicine 04/27/10 Kiley Randall, [facility] [address] [place] [place] [address] Pharmacist Pharmacy 11/13/19 Jessica Rose, [facility] [address] [place] [place] [address] Pharmacist Pharmacy 02/16/21 Survey Technician Relationship Specialty Start Date End Date Papa Douglass MD [address] [place] [address] PCP - General Family Medicine 04/27/10 Kiley Randall, [facility] [address] [facility] [place] [address] Pharmacist Pharmacy 11/13/19 Jessica Rose, [facility] [address] [facility] [place] [address] Pharmacist Pharmacy 02/16/21 Survey Technician Relationship Specialty Start Date End Date Papa Douglass MD [address] [facility] [place] [address] PCP - General Family Medicine 04/27/10 Kiley Randall, [facility] [address] [place] [address] Pharmacist Pharmacy 11/13/19 Jessica Rose, [facility] [address] [place] [address] Pharmacist Pharmacy 02/16/21 Team Status: Active Member [...] Dr. Natalya Chun MD Emergency Provider Active Survey Technician Relationship Specialty Start Date End Date Papa Duoglass MD [address] [facility] [place] [place] [address] PCP - General Family Medicine 04/27/10 [facility] [address] [facility] [place] [place] [address] Pharmacist Pharmacy 11/13/19 [facility] [address] [facility] [place] [place] [address] Pharmacist Pharmacy 02/16/21 Survey Technician Relationship Specialty Start Date End Date Papa Douglass MD [address] [facility] [place] [place] [address] PCP - General Family Medicine 04/27/10 [facility] [address] [facility] [place] [place] [address] Pharmacist Pharmacy 11/13/19 [facility] [address] [facility] [place] [place] [address] Pharmacist Pharmacy 02/16/21 Survey Technician Relationship Specialty Start Date End Date Papa Douglass MD [address] [facility] [place] [place] [address] PCP - General Family Medicine 04/27/10 [facility] [address] [facility] [place] [place] [address] Pharmacist Pharmacy 11/13/19 [facility] [address] [facility] [place] [place] [address] Pharmacist Pharmacy 02/16/21 Survey Technician Relationship Specialty Start Date End Date Papa Douglass MD [address] [facility] [place] [place] [address] PCP - General Family Medicine 04/27/10 [facility] [address] [facility] [place] [place] [address] Pharmacist Pharmacy 11/13/19 [facility] [address] [facility] [place] [place] [address] Pharmacist Pharmacy 02/16/21 Team Status: Inactive Member Role Status Dates Dr. Ppaa Douglass MD Primary Care Provider Active Dr. Natalya Chun MD Attending Provider, Emergency Provider Active Team Status: Inactive Member Role Status Dates Dr. Papa Douglass MD Primary Care Provider Active Mela Murphy METEOROLOGY TEACHER, METEOROLOGY TEACHER-C Attending Provider, Referring Pro vider Active Team Status: Inactive Member Role Status Dates Dr. Papa Douglass MD Primary Care Provider Active Dr. Hiram Hernandez DO Emergency Provider Active Survey Technician Relationship Specialty Start Date End Date Papa Douglass MD [address] [facility] [place] [place] [address] PCP - General Family Medicine 04/27/10 [facility] [address] [facility] [place] [place] [address] Pharmacist Pharmacy 11/13/19 [facility] [address] [facility] [place] [place] [address] Pharmacist Pharmacy 02/16/21 Survey Technician Relationship Specialty Start Date End Date Papa Douglass MD [address] [facility] [place] [address] PCP - General Family Medicine 04/27/10 [facility] [address] [place] [address] Pharmacist Pharmacy 11/13/19 [facility] [address] [place] [address] Pharmacist Pharmacy 02/16/21 Survey Technician Relationship Specialty Start Date End Date Papa Douglass MD [address] [facility] [place] [address] PCP - General Family Medicine 04/27/10 [facility] [address] [place] [place] [address] Pharmacist Pharmacy 11/13/19 Jessica Rose, [facility] [address] [place] [address] Pharmacist Pharmacy 02/16/21 Survey Technician Relationship Specialty Start Date End Date Papa Douglass MD [address] [facility] [place] [address] PCP - General Family Medicine 04/27/10 Kiley Randall, [facility] [address] [place] [address] Pharmacist Pharmacy 11/13/19 Jessica Rose, [facility] [address] [place] [place] [address] Pharmacist Pharmacy 02/16/21 Survey Technician Relationship Specialty Start Date End Date Papa Douglass MD [address] [facility] [place] [address] PCP - General Family Medicine 04/27/10 Kiley Randall, [facility] [address] [facility] [place] [place] [address] Pharmacist Pharmacy 11/13/19 [place] Jessica, [facility] [address] [facility] [place] [place] [address] Pharmacist Pharmacy 02/16/21 Team Status: Inactive Member [...] Hernandez DO Referring Provider, Emergency Provider Active Survey Technician Relationship Specialty Start Date End Date Papa Douglass MD [address] [facility] [place] [place] [address] PCP - General Family Medicine 04/27/10 WillemKiley miller, [facility] [address] [facility] [place] [place] [address] Pharmacist Pharmacy 11/13/19 Milton, Jessica, [facility] [address] [facility] [place] [place] [address] Pharmacist Pharmacy 02/16/21 Survey Technician Relationship Specialty Start Date End Date Papa Douglass MD [address] [facility] [place] [place] [address] PCP - General Family Medicine 04/27/10 Kiley Randall, [facility] [address] [facility] [place] [place] [address] Pharmacist Pharmacy 11/13/19 [place], Jessica, [facility] [address] [place] [address] Pharmacist Pharmacy 02/16/21 Survey Technician Relationship Specialty Start Date End Date Papa Douglass MD [address] [facility] [place] [place] [address] PCP - General Family Medicine 04/27/10 Kiley Randall, [facility] [address] [facility] [place] [address] Pharmacist Pharmacy 11/13/19 Jessica Rose, [facility] [address] [facility] [place] [place] [address] Pharmacist Pharmacy 02/16/21 Survey Technician Relationship Specialty Start Date End Date Papa Douglass MD [address] [facility] [place] [place] [address] PCP - General Family Medicine 04/27/10 Kiley Randall, [facility] [address] [place] [address] Pharmacist Pharmacy 11/13/19 Jessica Rose, [facility] [address] [place] [address] Pharmacist Pharmacy 02/16/21 Survey Technician Relationship Specialty Start Date End Date Papa Douglass MD [address] [facility] [place] [place] [address] PCP - General Family Medicine 04/27/10 Kiley Randall, [facility] [address] [facility] [place] [address] Pharmacist Pharmacy 11/13/19 Jessica Rose, [facility] [address] [place] [address] Pharmacist Pharmacy 02/16/21 Team Status: Inactive Member Role Status Dates Dr. Papa Douglass MD Primary Care Provider Active Dr. Hiram Hernandez DO Attending Provid er, Referring Provider, Emergency Provider Active Team Status: Inactive Member Role Status Dates Dr. Papa Douglass MD Primary Care Provider Active Dr. Velasquez Hill DO Emergency Provider Active Survey Technician Relationship Specialty Start Date End Date Papa Douglass MD [address] [place] [address] PCP - General Family Medicine 04/27/10 Survey Technician Relationship Specialty Start Date End Date Papa Douglass MD [address] [place] [address] PCP - General Family Medicine 04/27/10 Survey Technician Relationship Specialty Start Date End Date Papa Douglass MD [address] [place] [address] PCP - General Family Medicine 04/27/10 Survey Technician Relationship Specialty Start Date End Date Papa Douglass MD [address] [facility] [place] [address] PCP - General Family Medicine 04/27/10 Team Status: Inactive Member Role Status Dates Dr. Papa Douglass MD Primary Care Provider Active Dr. Velasquez Hill DO Attending Provider, Emergency P mike Active Team Status: Inactive Member Role Status Dates Dr. Papa Douglass MD Primary Care Provider Active Dr. Pranav Ward MD Emergency Provider Active Survey Technician Relationship Specialty Start Date End Date Papa Douglass MD [address] [facility] [place] [address] PCP - General Family Medicine 04/27/10 Survey Technician Relationship Specialty Start Date End Date Papa Douglass MD [address] [facility] [place] [address] PCP - General Family Medicine 04/27/10 Survey Technician Relationship Specialty Start Date End Date Papa Douglass MD [address] [facility] [place] [place] [address] PCP - General Family Medicine 04/27/10 Survey Technician Relationship Specialty Start Date End Date Papa Douglass MD [address] [facility] [place] [place] [address] PCP - General Family Medicine 04/27/10 Survey Technician Relationship Specialty Start Date End Date Papa Douglass MD [address] [facility] [place], [place] [address] PCP - General Family Medicine 04/27/10 Team Status: Inactive Member Role Status Dates Dr. Papa Douglass MD Primary Care Provider, Referr ing Provider Active DAVID Rebollar Attending Provider Active Team Status: Active Member Role Status Dates Dr. Papa Douglass MD Primary Care Provider Active Dr. Candy Archuleta DO Emergency Provider Active Dr. Cecilia Villa , Admit Provider, Att ending Provider, Other Provider Active Team Status: Active Member Role Status Dates Dr. Paap Douglass MD Primary Care Provider Active Dr. Nathalie Kelsey MD Attending Provider Active Team Status: Active Member Role Status Dates Dr. Papa Douglass MD Primary Care Provider Active Dr. Candy Archuleta DO Emergency Provider Active Dr. Cecilia Villa , [...] DO Emergency Provider Active Dr. Cecilia Villa , Admit Provider, Other Provider Ac tive Dr. Sergo Bustillos MD Attending Provider Active Team Status: Active Member Role Status Dates Dr. Papa Douglass MD Primary Care Provider Active DAVID Rebollar Attending Provider, Referring Pr ovider Active Survey Technician Relationship Specialty Start Date End Date Papa Douglass MD [address] [facility] [place] [place] [address] PCP - General Family Medicine 04/27/10 Survey Technician Relationship Specialty Start Date End Date Papa Douglass MD [address] [facility] [place] [place] [address] PCP - General Family Medicine 04/27/10 Survey Technician Relationship Specialty Start Date End Date Papa Douglass MD [address] [facility] [place] [place] [address] PCP - General Family Medicine 04/27/10 Survey Technician Relationship Specialty Start Date End Date Papa Douglass MD [address] [facility] [place] [place] [address] PCP - General Family Medicine 04/27/10 Survey Technician Relationship Specialty Start Date End Date Papa Douglass MD [address] [facility] [place] [place] [address] PCP - General Family Medicine 04/27/10 Survey Technician Relationship Specialty Start Date End Date Papa Douglass MD [address] [facility] [place] [place] [address] PCP - General Family Medicine 04/27/10 Survey Technician Relationship Specialty Start Date End Date Papa Douglass MD [address] [facility] [place] [place] [address] PCP - General Family Medicine 04/27/10 Kiley Randall [facility] [address] [facility] [place] [place] [address] Pharmacist Pharmacy 11/13/19 12/11/22 Jessica Rose, [facility] [address] [facility] [place] [place] [address] Pharmacist Pharmacy 02/16/21 12/11/22 Survey Technician Relationship Specialty Start Date End Date Papa Douglass MD [address] [facility] [place], [place] [address] PCP - General Family Medicine 04/27/10 WillemKiley miller, [facility] [address] [facility] [place] [place] [address] Pharmacist Pharmacy 11/13/19 12/11/22 [facility] [address] [facility] [place] [place] [address] Pharmacist Pharmacy 02/16/21 12/11/22 Survey Technician Relationship Specialty Start Date End Date Vero Ortez NP [address] [facility] [place] [address] PCP - General Nurse Practitioner - Adult Health 04/16/24 [facility] [address] [place] [address] Oncologist Medical Oncology 04/16/24 Natalya Saavedra, ALFONZO Registered Nurse 04/16/24 Rylee Weaver LSW Black Jack Dealer Social Work 04/20/24 Bruna Frey LISW Black Jack Dealer 04/20/24 Jaziel Drake MD [address] [place] [phone] Greens Keeper Nurse Practitioner - Family 05/07/24 Mari Kaba, rn palliativeData Operations Leader Oncology 05/07/24 Survey Technician Relationship Specialty Start Date End Date Vero Ortez NP [address] [place] [address] PCP - General Nurse Practitioner - Adult Health 04/16/24 Joseluis Riggins [facility] [address] [place], [place] [address] Oncologist Medical Oncology 04/16/24 Natalya Saavedra, RN Registered Nurse 04/16/24 Ryele Weaver LSW Black Jack Dealer Social Work 04/20/24 Bruna Frey LISW Black Jack Dealer 04/20/24 Jaziel Drake MD [address] [place] [phone] Greens Keeper Nurse Practitioner - Family 05/07/24 Mari Kaba, rn palliativeData Operations Leader Oncology 05/07/24 Survey Technician Relationship Specialty Start Date End Date Vero Ortez NP [address] [place] [address] PCP - General Nurse Practitioner - Adult Health 04/16/24 Joseluis Riggins [facility] [address] [place], [place] [address] [phone] Oncologist Medical Oncology 04/16/24 Natalya Saavedra, RN Registered Nurse 04/16/24 Rylee Weaver, [facility] Black Jack Dealer Social Work 04/20/24FebBruna wright LISW Black Jack Dealer 04/20/24 Jaziel Drake MD [address] [place] [phone] Greens Keeper Nurse Practitioner - Family 05/07/24 Mari Kaba, rn palliativeData Operations Leader Oncology 05/07/24 Survey Technician Relationship Specialty Start Date End Date Vero Ortez NP [address] [facility] [place] [address] PCP - General Nurse Practitioner - Adult Health 04/16/24 Joseluis Riggins [facility] [address] [place], [place] [address] [phone] Oncologist Medical Oncology 04/16/24 Natalya Saavedra, RN Registered Nurse 04/16/24 Rylee Weaver LSW Black Jack Dealer Social Work 04/20/24 Bruna Frey LISW Black Jack Dealer 04/20/24 Jaziel Drake MD [address] [place] [phone] Greens Keeper Nurse Practitioner - Family 05/07/24 Gia Kilgore, rn palliative Medical Oncology 07/30/24 Survey Technician Relationship Specialty Start Date End Date Vero Ortez NP [address] [place] [address] PCP - General Nurse Practitioner - Adult Health 04/16/24 Joseluis Riggins [facility] [address] [place], [place] [address] Oncologist Medical Oncology 04/16/24 Natalya Saavedra, ALFONZO Registered Nurse 04/16/24 Rylee Weaver LSW Black Jack Dealer Social Work 04/20/24FebBruna pulido LISW Black Jack Dealer 04/20/24 Jaziel Drake MD [address] [place] [phone] Greens Keeper Nurse Practitioner - [facility] 05/07/24 Gia Kilgore rn palliative Medical Oncology 07/30/24 Survey Technician Relationship Specialty Start Date End Date Vero Ortez NP [address] [facility] [place] [address] PCP - General Nurse Practitioner - Adult Health 04/16/24 Joseluis Riggins [facility] [address] [place], [place] [address] Oncologist Medical Oncology 04/16/24 Natalya Saavedra, RN Registered Nurse 04/16/24 Rylee Weaver LSW Black Jack Dealer Social Work 04/20/24 Bruna Frey LISW Black Jack Dealer 04/20/24 Jaziel Drake MD [address] [place] [phone] Greens Keeper Nurse Practitioner - Family 05/07/24 Gia Kilgore, rn palliative Medical Oncology 07/30/24 Survey Technician Relationship Specialty Start Date End Date Vero Ortez NP [address] [facility] [place] [address] PCP - General Nurse Practitioner - Adult Health 04/16/24 [facility] [address] [place], [place] [address] Oncologist Medical Oncology 04/16/24 Natalya Saavedra, RN Registered Nurse 04/16/24 Rylee Weaver LSW [employer] Dealer Social Work 04/20/24FebBruna pulido LISW Black Jack Dealer 04/20/24 Jaziel Drake MD [address] [place] [phone] Greens Keeper Nurse Practitioner - Family 05/07/24 Gia Kilgore, rn palliative Medical Oncology 07/30/24 07/30/24 Survey Technician Relationship Specialty Start Date End Date Vero Ortez NP [address] [facility] [place] [address] PCP - General Nurse Practitioner - Adult Health 04/16/24 Joseluis Riggins [facility] [address] [place] [address] Oncologist Medical Oncology 04/16/24 Natalya Saavedra, RN Registered Nurse 04/16/24 Rylee Weaver LSW Black Jack Dealer Social Work 04/20/24 Bruna Frey LISW Black Jack Dealer 04/20/24 Jaziel Drake MD [address] [place] [phone] Greens Keeper Nurse Practitioner - Family 05/07/24 Gia Kilgore, rn palliative Medical Oncology 07/30/24 07/30/24 Survey Technician Relationship Specialty Start Date End Date Vero Ortez NP [address] [facility] [place] [address] PCP - General Nurse Practitioner - Adult Health 04/16/24 Joseluis Riggins [facility] [address] [place], [place] [address] Oncologist Medical Oncology 04/16/24 Natalya Saavedra, RN Registered Nurse 04/16/24 Rylee Weaver LSW Black Jack Dealer Social Work 04/20/24 Bruna Frey LISW Black Jack Dealer 04/20/24 Jaziel Drake MD [address] [place] [phone] Greens Keeper Nurse Practitioner - [facility] 05/07/24 Survey Technician Relationship Specialty Start Date End Date Vero Ortez NP [address] [place] [address] PCP - General Nurse Practitioner - Adult Health 04/16/24 Joseluis Riggins [facility] [address] [place], [place] [address] Oncologist Medical Oncology 04/16/24 Natalya Saavedra, RN Registered Nurse 04/16/24 Rylee Weavre [facility] Black Jack Dealer Social Work 04/20/24 Bruna Frey LISW Black Jack Dealer 04/20/24 Jaziel Drake MD [address] [place] [phone] Greens Keeper Nurse Practitioner - Family 05/07/24 Survey Technician Relationship Specialty Start Date End Date Vero Ortez NP [address] [place] [address] PCP - General Nurse Practitioner - Adult Health 04/16/24 Joseluis Riggins [facility] [address] [place], [place] [address] [phone] Oncologist Medical Oncology 04/16/24 Natalya Saavedra, RN Registered Nurse 04/16/24 Rylee Weaver LSW Black Jack Dealer Social Work 04/20/24 Bruna Frey LISW Black Jack Dealer 04/20/24 Jaziel Drake MD [address] [place] [phone] Greens Keeper Nurse Practitioner - Family 05/07/24 Survey Technician Relationship Specialty Start Date End Date Vero Ortez NP [address] [facility] [place] [address] PCP - General Nurse Practitioner - Adult Health 04/16/24 Joseluis Riggins [facility] [address] [place] [address] Oncologist Medical Oncology 04/16/24 Natalya Saavedra, ALFONZO Registered Nurse 04/16/24 Rylee Weaver LSW Black Jack Dealer Social Work 04/20/24FebBruna pulido LISW Black Jack Dealer 04/20/24 Jaziel Drake MD [address] [place] [phone] Greens Keeper Nurse Practitioner - Family 05/07/24 Survey Technician Relationship Specialty Start Date End Date Vero Ortez NP [address] [facility] [place] [address] PCP - General Nurse Practitioner - Adult Health 04/16/24 Joseluis Riggins [facility] [address] [place], [place] [address] [phone] Oncologist Medical Oncology 04/16/24 Natalya Saavedra, RN Registered Nurse 04/16/24 Rylee Weaver BUSINESS CONTROLLER Black Jack Dealer Social Work 04/20/24 Bruna Frey LISW Black Jack Dealer 04/20/24 Jaziel Drake MD [address] [place] [phone] Greens Keeper Nurse Practitioner - [facility] 05/07/24 Survey Technician Relationship Specialty Start Date End Date Vero Ortez NP [address] [facility] [place] [address] PCP - General Nurse Practitioner - Adult Health 04/16/24 Joseluis Riggins, [facility] [address] [place] [address] Oncologist Medical Oncology 04/16/24 Natalya Saavedra, RN Registered Nurse 04/16/24 Rylee Weaver BUSINESS CONTROLLER Black Jack Dealer Social Work 04/20/24 Bruna Frey LISW Black Jack Dealer 04/20/24 Jaziel Drake MD [address] [place] [phone] Greens Keeper Nurse Practitioner - [facility] 05/07/24 Survey Technician Relationship Specialty Start Date End Date Papa Douglass MD [address] [facility] [place] [address] PCP - General Family Medicine 04/27/10 Vero Ortez CNP [address] [place] [address] [place] [address] Referring Family Medicine 04/07/24 Coco Waters APRN.DESIZING MACHINE OFFBEARER [address] [facility] [place] [address] Pick And Shovel Man Family Medicine 06/28/24 Feliciano Nunez APRN.DESIZING MACHINE OFFBEARER [address] [place] [address] Pick And Shovel Man Family Medicine 07/07/24 Team Status: Active Member Role Status Dates VERO MAST , GROCERY MANAGER Primary Care Provider Active Team Status: Inactive Member Role Status Dates VERO MAST , GROCERY MANAGER Primary Care Provider Active Start: June 02, 2024 End: June 02, 2024 Dr. Ralph Singh MD Attending Provider Active Start: June 02, 2024 End: June 02, 2024 Dr. Ralph Singh MD Referring Provider Active Start: June 02, 2024 End: June 02, 2024 Team Status: Inactive Member Role Status Dates VERO MAST , GROCERY MANAGER Primary Care Provider Active Start: June 08, 2024 End: June 08, 2024 VERO MAST , GROCERY MANAGER Referring Provider Active Sta rt: June 08, 2024 End: June 08, 2024 DAVID Rebollar Attending Provider Active Start: June 08, 2024 End: June 08, 2024 Team Status: Inactive Member Role Status Dates VERO DIANA , GROCERY MANAGER Primary Care Provider Active Start: June 16, 2024 End: June 16, 2024 Dr. Ralph Singh MD Attending Provider Active Start: June 16, 2024 End: June 16, 2024 Dr. Ralph Singh MD Referring Provider Active Start: June 16, 2024 End: June 16, 2024 Team Status: Inactive Member Role Status Dates VERO DIANA , GROCERY MANAGER Primary Care Provider Active Start: July 24, 2024 End: July 24, 2024 Dr. Ralph Singh MD Attending Provider Active Start: July 24, 2024 End: July 24, 2024 Dr. Ralph Singh MD Referring Provider Active Start: July 24, 2024 End: July 24, 2024 Team Status: Inactive Member Role Status Dates VERO MAST , GROCERY MANAGER Primary Care Provider Active Start: July 28, 2024 End: July 28, 2024 VERO MAST , GROCERY MANAGER Referring Provider Active Sta rt: July 28, 2024 End: July 28, 2024 Dr. Ralph Singh MD Attending Provider Active Start: July 28, 2024 End: July 28, 2024 Team Status: Inactive Member Role Status Dates VERO MAST , GROCERY MANAGER Primary Care Provider Active Start: July 29, 2024 End: July 29, 2024 Dr. Brayan Cast DO Attending Provider Active Start: July 29, 2024 End: July 29, 2024 Dr. Brayan Cast DO Referring Provider Active Start: July 29, 2024 End: July 29, 2024 Team Status: Active Member Role Status Dates VERO MAST , GROCERY MANAGER Primary Care Provider Active Start: July 29, 2024 Dr. Brayan Cast DO Attending Provider Active Start: July 29, 2024 Dr. Brayan Cast DO Referring Provider Active Start: July 29, 2024 Dr. Brayan Cast DO Other Provider Active St art: July 29, 2024 Team Status: Inactive Member Role Status Dates VERO MAST , GROCERY MANAGER Primary Care Provider Active Start: September 04, 2024 End: September 04, 2024 VERO MAST , GROCERY MANAGER Referring Provider Active Sta rt: September 04, 2024 End: September 04, 2024 DAVID Granado Attending Provider Active Start: September 04, 2024 End: September 04, 2024 Team Status: Inactive Member Role Status Dates VERO MAST , GROCERY MANAGER Primary Care Provider Active Start: September 24, 2024 End: September 24, 2024 VERO MAST , GROCERY MANAGER Referring Provider Active Sta rt: September 24, 2024 End: September 24, 2024 DAVID Rebollar Attending Provider Active Start: September 24, 2024 End: September 24, 2024 Team Status: Active Member Role Status Dates VERO MAST , GROCERY MANAGER Primary Care Provider Active Start: September 24, 2024 Dr. Scott Berrios MD Attending Provider Active Start: September 24, 2024 Dr. Scott Berrios MD Referring Provider Active Start: September 24, 2024 Team Status: Active Member Role Status Dates VERO MAST , GROCERY MANAGER Primary Care Provider Active Start: September 28, 2024 DAVID Granado Attending Provider Active Start: September 28, 2024 DAVID Granado Referring Provider Active Start: September 28, 2024 Team Status: Inactive Member Role Status Dates VERO MAST , GROCERY MANAGER Primary Care Provider Active Start: September 30, 2024 End: September 30, 2024 Dr. Steven Mercado DO Emergency Provider Active Start: September 30, 2024 End: September 30, 2024 Team Status: Inactive Member Role Status Dates VERO MAST , GROCERY MANAGER Primary Care Provider Active Start: September 28, 2024 End: September 28, 2024 Elsa José NP-C Attending Provider Active Start: September 28, 2024 End: September 28, 2024 Elsa José NP-Char Referring Provider Active Start: September 28, 2024 End: September 28, 2024 Team Status: Active Member Role Status Dates VERO MAST GROCERY MANAGER Primary Care Provider Active Start: October 05, 2024 Elsa José NP-C Attending Provider Active Start: October 05, 2024 Elsa José NP-C Referring Provider Active Start: October 05, 2024 Team Status: Active Member Role Status Dates VERO ORTEZ GROCERY MANAGER Primary Care Provider Active Start: October 06, 2024 Elsa José NP-C Attending Provider Active Start: October 06, 2024 Elsa José NP-Char Referring Provider Active Start: October 06, 2024 Team Status: Inactive Member Role Status Dates VERO MAST , GROCERY MANAGER Primary Care Provider Active Start: September 24, 2024 End: September 24, 2024 Dr. Scott Berrios MD Attending Provider Active Start: September 24, 2024 End: September 24, 2024 Dr. Scott Berrios MD Referring Provider Active Start: September 24, 2024 End: September 24, 2024 Team Status: Inactive Member Role Status Dates VERO MAST , GROCERY MANAGER Primary Care Provider Active Start: September 30, 2024 End: September 30, 2024 Dr. Steven Mercado DO Attending Provider Active Start: September 30, 2024 End: September 30, 2024 Dr. Steven Mercado DO Emergency Provider Active Start: September 30, 2024 End: September 30, 2024 Team Status: Inactive Member Role Status Dates VERO MAST , GROCERY MANAGER Primary Care Provider Active Start: October 05, 2024 End: October 05, 2024 Elsa José NP-Char Attending Provider Active Start: October 05, 2024 End: October 05, 2024 Elsa José NP-C Referring Provider Active Start: October 05, 2024 End: October 05, 2024 Team Status: Active Member Role Status Dates VERO MAST , GROCERY MANAGER Primary Care Provider Active Start: October 14, 2024 Elsa José NP-C Referring Provider Active Start: October 14, 2024 DAVID Granado Other Provider Active St art: October 14, 2024 Dr. Alberto Qiu DO Attending Provider Active S tart: October 14, 2024 Team Status: Inactive Member Role Status Dates DARLING KWAN Primary Care Provider Active Start: October 06, 2024 End: October 06, 2024 DAVID Granado Attending Provider Active Start: October 06, 2024 End: October 06, 2024 Elsa José NP-Char Referring Provider Active Start: October 06, 2024 End: October 06, 2024 Team Status: Inactive Member Role Status Dates DARLING KWAN Primary Care Provider Active Start: October 23, 2024 End: October 23, 2024 DAVID Granado Attending Provider Active Start: October 23, 2024 End: October 23, 2024 Elsa José NP-C Referring Provider Active Start: October 23, 2024 End: October 23, 2024 Team Status: Inactive Member Role Status Dates VERO ORTEZ GROCERY MANAGER Primary Care Provider Active Start: October 30, 2024 End: October 30, 2024 BROCK KWANNP Referring Provider Active Sta rt: October 30, 2024 End: October 30, 2024 DAVID Granado Attending Provider Active Start: October 30, 2024 End: October 30, 2024 Team Status: Inactive Member Role Status Dates VEROJEAN ORTEZ GROCERY MANAGER Primary Care Provider Active Start: November 03, 2024 End: November 03, 2024 Dr. Velasquez Hill , Emergency Provider Active Start: November 03, 2024 End: November 03, 2024 Survey Technician Relationship Specialty Start Date End Date Papa Douglass MD [address] [place] [address] PCP - General Family Medicine 04/27/10 Vero Ortez CNP [address] [facility] [place] [address] Referring Family Medicine 04/07/24 Coco Waters, MUTTON PUNCHER.DESIZING MACHINE OFFBEARER [address] [facility] [place] [address] Pick And Shovel Man Family Medicine 06/28/24 12/02/24 Feliciano Nunez, MUTTON PUNCHER.DESIZING MACHINE OFFBEARER [address] [place], [place] [address] Pick And Shovel Man Family [facility] 07/07/24 Survey Technician Relationship Specialty Start Date End Date Vero Ortez NP PCP - General Nurse Practitioner - Adult Health 04/16/24 Joseluis Riggins [facility] [address] [place] [address] Oncologist Medical Oncology 04/16/24 Natalya Saavedra, ALFONZO Registered Nurse 04/16/24 Rylee Weaver LSW Black Jack Dealer Social Work 04/20/24 Bruna Frey LISW Black Jack Dealer 04/20/24 Jaziel Drake MD Greens Keeper Nurse Practitioner - [facility] 05/07/24 Survey Technician Relationship Specialty Start Date End Date Vero Ortez NP PCP - General Nurse Practitioner - Adult Health 04/16/24 Joseluis Riggins MB [facility] [address] [place] [address] Oncologist Medical Oncology 04/16/24 Natalya Saavedra, ALFONZO Registered Nurse 04/16/24 Rylee Weaver LSW Black Jack Dealer Social Work 04/20/24 Bruna Frey LISW Black Jack Dealer 04/20/24 Jaziel Drake MD Greens Keeper Nurse Practitioner - Family 05/07/24 Team Status: Inactive Member Role Status Dates DARLING KWAN Primary Care Provider Active Start: November 03, 2024 End: November 03, 2024 Dr. Velasquez Hill , Attending Provider Active Start: November 03, 2024 End: November 03, 2024 Dr. Velasquez Hill DO Emergency Provider Active Start: November 03, 2024 End: November 03, 2024 Team Status: Inactive Member Role Status Dates BROCK KWANNP Primary Care Provider Active Start: November 12, 2024 End: November 12, 2024 CODY GranadoC Attending Provider Active Start: November 12, 2024 End: November 12, 2024 DAVID Granado Referring Provider Active Start: November 12, 2024 End: November 12, 2024 Team Status: Inactive Member Role Status Dates VERO ORTEZ , GROCERY MANAGER Primary Care Provider Active Start: December 30, 2024 End: December 30, 2024 VEROJEAN ORTEZ , GROCERY MANAGER Referring Provider Active Sta rt: December 30, 2024 End: December 30, 2024 Neal Ruiz PA, PA Attending Provider Active Start: December 30, 2024 End: December 30, 2024 Survey Technician Relationship Specialty Start Date End Date Vero Ortez METEOROLOGY TEACHER PCP - General Nurse Practitioner - Adult Health 04/16/24 Joseluis Riggins MB [facility] [address] [facility] [place] [address] Oncologist Medical Oncology 04/16/24 Natalya Saavedra, ALFONZO Registered Nurse 04/16/24 Rylee Weaver LSW Black Jack Dealer Social Work 04/20/24 Bruna Frey LISW Black Jack Dealer 04/20/24 Jaziel Drake MD Greens Keeper Nurse Practitioner - Family 05/07/24 Team Status: Active Member Role Status Dates VERO ORTEZ , GROCERY MANAGER Primary Care Provider Active Start: October 05, 2024 Dr. Alberto Qiu DO Attending Provider Active S tart: October 05, 2024 Elsa José NP-C Referring Provider Active Start: October 05, 2024 Team Status: Active Member Role Status Dates VERO ORTEZ GROCERY MANAGER Primary Care Provider Active Start: January 11, 2025 Dr. Jacobo Solorzano , DO Emergency Provider Activ e Start: January 11, 2025 Dr. Amadou Arthur , DO Admit Provider Active Start: January 11, 2025 Dr. Amadou Arthur , DO Attending Provider Active Start: January 11, 2025 Team Status: Inactive Member Role Status Dates VERO MAST , GROCERY MANAGER Primary Care Provider Active Start: January 11, 2025 End: January 13, 2025 Dr. Jacobo Solorzano , DO Emergency Provider Activ e Start: January 11, 2025 End: January 13, 2025 Dr. Amadou Arthur , DO Admit Provider Active Start: January 11, 2025 End: January 13, 2025 Dr. Amadou Arthur , DO Other Provider Active Start: January 11, 2025 End: January 13, 2025 Dr. Velasquez Vivas , DO Attending Provider Active Start: January 11, 2025 End: January 13, 2025 Team Status: Active Member Role Status Dates VERO MAST , GROCERY MANAGER Primary Care Provider Active Start: January 12, 2025 Dr. Jacobo Solorzano , DO Emergency Provider Activ e Start: January 12, 2025 Dr. Amadou Arthur , DO Admit Provider Active Start: January 12, 2025 Dr. Amadou Arthur , DO Other Provider Active Start: January 12, 2025 Dr. Velasquez Vivas , DO Attending Provider Active Start: January 12, 2025 Dr. Velasquez Vivas , DO Other Provider Active Star t: January 12, 2025 Team Status: Active Member Role Status Dates VERO MAST , GROCERY MANAGER Primary Care Provider Active Start: January 13, 2025 Dr. Jacobo Solorzano , DO Emergency Provider Activ e Start: January 13, 2025 Dr. Amadou Arthur , DO Admit Provider Active Start: January 13, 2025 Dr. Amadou Arthur , DO Other Provider Active Start: January 13, 2025 Dr. Velasquez Vivas , DO Attending Provider Active Start: January 13, 2025 Dr. Velasquez Vivas , DO Other Provider Active Star t: January 13, 2025 Team Status: Active Member Role/Relationship Status Dates VERO MAST , GROCERY MANAGER Primary Care Provider Active Team Status: Inactive Member Role/Relationship Status Dates VERO MAST , GROCERY MANAGER Primary Care Provider Active Start: October 05, 2024 End: October 05, 2024 DAVID Granado Attending Provider Active Start: October 05, 2024 End: October 05, 2024 Elsa José NP-C Referring Provider Active Start: October 05, 2024 End: October 05, 2024 Team Status: Active Member Role/Relationship Status Dates VERO ORTEZ GROCERY MANAGER Primary Care Provider Active Start: October 05, 2024 Dr. Alberto Qiu , Attending Provider Active S tart: October 05, 2024 Elsa José NP-C Referring Provider Active Start: October 05, 2024 Team Status: Inactive Member Role/Relationship Status Dates VERO ORTEZ , GROCERY MANAGER Primary Care Provider Active Start: October 06, 2024 End: October 06, 2024 Elsa José NP-C Attending Provider Active Start: October 06, 2024 End: October 06, 2024 Elsa José NP-C Referring Provider Active Start: October 06, 2024 End: October 06, 2024 Team Status: Active Member Role/Relationship Status Dates VERO ORTEZ GROCERY MANAGER Primary Care Provider Active Start: October 14, 2024 Elsa José NP-Char Referring Provider Active Start: October 14, 2024 DAVID Granado Other Provider Active St art: October 14, 2024 Dr. Alberto Qiu , Attending Provider Active S tart: October 14, 2024 Team Status: Inactive Member Role/Relationship Status Dates VERO ORTEZ GROCERY MANAGER Primary Care Provider Active Start: October 23, 2024 End: October 23, 2024 Elsa José NP-C Attending Provider Active Start: October 23, 2024 End: October 23, 2024 Elsa José NP-C Referring Provider Active Start: October 23, 2024 End: October 23, 2024 Team Status: Inactive Member Role/Relationship Status Dates VERO MAST , GROCERY MANAGER Primary Care Provider Active Start: October 30, 2024 End: October 30, 2024 VERO ORTEZ GROCERY MANAGER Referring Provider Active Sta rt: October 30, 2024 End: October 30, 2024 Elsa José NP-C Attending Provider Active Start: October 30, 2024 End: October 30, 2024 Team Status: Inactive Member Role/Relationship Status Dates VERO MAST , GROCERY MANAGER Primary Care Provider Active Start: November 03, 2024 End: November 03, 2024 Dr. Velasquez Hill , Attending Provider Active Start: November 03, 2024 End: November 03, 2024 Dr. Velasquez Hill , Emergency Provider Active Start: November 03, 2024 End: November 03, 2024 Team Status: Inactive Member Role/Relationship Status Dates VERO MAST , GROCERY MANAGER Primary Care Provider Active Start: November 12, 2024 End: November 12, 2024 CODY GranadoC Attending Provider Active Start: November 12, 2024 End: November 12, 2024 Elsa José NP-C Referring Provider Active Start: November 12, 2024 End: November 12, 2024 Team Status: Inactive Member Role/Relationship Status Dates VERO MAST , GROCERY MANAGER Primary Care Provider Active Start: December 30, 2024 End: December 30, 2024 VERO MAST , GROCERY MANAGER Referring Provider Active Sta rt: December 30, 2024 End: December 30, 2024 Neal Ruiz PA, PA Attending Provider Active Start: December 30, 2024 End: December 30, 2024 Team Status: Inactive Member Role/Relationship Status Dates VERO MAST , GROCERY MANAGER Primary Care Provider Active Start: January 11, 2025 End: January 13, 2025 Dr. Jacobo Solorzano , Emergency Provider Activ e Start: January 11, 2025 End: January 13, 2025 Dr. Amadou Arthur , Admit Provider Active Start: January 11, 2025 End: January 13, 2025 Dr. Amadou Arthur , Other Provider Active Start: January 11, 2025 End: January 13, 2025 Dr. Velasquez Vivas , Attending Provider Active Start: January 11, 2025 End: January 13, 2025 Team Status: Active Member Role/Relationship Status Dates VERO MAST , GROCERY MANAGER Primary Care Provider Active Start: January 12, 2025 Dr. Jacobo Solorzano DO Emergency Provider Activ e Start: January 12, 2025 Dr. Amadou Arthur , DO Admit Provider Active Start: January 12, 2025 Dr. Amadou Arthur , DO Other Provider Active Start: January 12, 2025 Dr. Velasquez Vivas , DO Attending Provider Active Start: January 12, 2025 Dr. Velasquez Vivas , DO Other Provider Active Star t: January 12, 2025 Team Status: Active Member Role/Relationship Status Dates VERO MAST , GROCERY MANAGER Primary Care Provider Active Start: January 13, 2025 Dr. Jacobo Solorzano , DO Emergency Provider Activ e Start: January 13, 2025 Dr. Amadou Arthur , DO Admit Provider Active Start: January 13, 2025 Dr. Amadou Arthur , DO Other Provider Active Start: January 13, 2025 Dr. Velasquez Vivas , DO Attending Provider Active Start: January 13, 2025 Dr. Velasquez Vivas , Other Provider Active Star t: January 13, 2025 Team Status: Inactive Member Role/Relationship Status Dates VERO MAST , GROCERY MANAGER Primary Care Provider Active Start: February 02, 2025 End: February 02, 2025 VERO DIANA , GROCERY MANAGER Referring Provider Active Sta rt: February 02, 2025 End: February 02, 2025 Elsa José NP-C Attending Provider Active Start: February 02, 2025 End: February 02, 2025 Survey Technician Relationship Specialty Start Date End Date Vero Ortez NP PCP - General Nurse Practitioner - Adult Health 04/16/24 Joseluis Riggins MB [facility] [address] [place] [address] Oncologist Medical Oncology 04/16/24 Rylee Weaver LSW [employer] Social Work 04/20/24 Bruna Frey LISW [employer] 04/20/24 Jaziel Drake MD [employer] Keeper Nurse Practitioner - Family 05/07/24 Team Status: Active Member Role/Relationship Status Dates VERO MAST , GROCERY MANAGER Primary Care Provider Active Start: October 14, 2024 Elsa José NP-C Referring Provider Active Start: October 14, 2024 DAVID Granado Other Provider Active St art: October 14, 2024 Dr. Alberto Qiu DO Attending Provider Active S tart: October 14, 2024 Team Status: Inactive Member Role/Relationship Status Dates VERO MAST , GROCERY MANAGER Primary Care Provider Active Start: October 23, 2024 End: October 23, 2024 DAVID Granado Attending Provider Active Start: October 23, 2024 End: October 23, 2024 DAVID Granado Referring Provider Active Start: October 23, 2024 End: October 23, 2024 Team Status: Inactive Member Role/Relationship Status Dates VERO MAST , GROCERY MANAGER Primary Care Provider Active Start: October 30, 2024 End: October 30, 2024 VERO MAST , GROCERY MANAGER Referring Provider Active Sta rt: October 30, 2024 End: October 30, 2024 DAVID Granado Attending Provider Active Start: October 30, 2024 End: October 30, 2024 Team Status: Inactive Member Role/Relationship Status Dates VERO MAST , GROCERY MANAGER Primary Care Provider Active Start: November 03, 2024 End: November 03, 2024 Dr. Velasquez Hill DO Attending Provider Active Start: November 03, 2024 End: November 03, 2024 Dr. Velasquez Hill DO Emergency Provider Active Start: November 03, 2024 End: November 03, 2024 Team Status: Inactive Member Role/Relationship Status Dates VERO MAST , GROCERY MANAGER Primary Care Provider Active Start: November 12, 2024 End: November 12, 2024 DAVID Granado Attending Provider Active Start: November 12, 2024 End: November 12, 2024 CODY GranadoC Referring Provider Active Start: November 12, 2024 End: November 12, 2024 Team Status: Inactive Member Role/Relationship Status Dates VERO MAST , GROCERY MANAGER Primary Care Provider Active Start: December 30, 2024 End: December 30, 2024 VERO MAST , GROCERY MANAGER Referring Provider Active Sta rt: December 30, 2024 End: December 30, 2024 Neal Ruiz PA, PA Attending Provider Active Start: December 30, 2024 End: December 30, 2024 Team Status: Inactive Member Role/Relationship Status Dates VERO MAST , GROCERY MANAGER Primary Care Provider Active Start: January 11, 2025 End: January 13, 2025 Dr. Jacobo Solorzano , DO Emergency Provider Activ e Start: January 11, 2025 End: January 13, 2025 Dr. Amadou Arthur , DO Admit Provider Active Start: January 11, 2025 End: January 13, 2025 Dr. Amadou Arthur , DO Other Provider Active Start: January 11, 2025 End: January 13, 2025 Dr. Velasquez Vivas , DO Attending Provider Active Start: January 11, 2025 End: January 13, 2025 Team Status: Active Member Role/Relationship Status Dates VERO MAST , GROCERY MANAGER Primary Care Provider Active Start: January 12, 2025 Dr. Jacobo Solorzano , DO Emergency Provider Activ e Start: January 12, 2025 Dr. Amadou Arthur , DO Admit Provider Active Start: January 12, 2025 Dr. Amadou Arthur , DO Other Provider Active Start: January 12, 2025 Dr. Velasquez Vivas , DO Attending Provider Active Start: January 12, 2025 Dr. Velasquez Vivas , DO Other Provider Active Star t: January 12, 2025 Team Status: Active Member Role/Relationship Status Dates VERO MAST , GROCERY MANAGER Primary Care Provider Active Start: January 13, 2025 Dr. Jacobo Solorzano , DO Emergency Provider Activ e Start: January 13, 2025 Dr. Amadou Arthur , DO Admit Provider Active Start: January 13, 2025 Dr. Amadou Arthur , DO Other Provider Active Start: January 13, 2025 Dr. Velasquez Vivas , DO Attending Provider Active Start: January 13, 2025 Dr. Velasquez Vivas , DO Other Provider Active Star t: January 13, 2025 Team Status: Inactive Member Role/Relationship Status Dates VERO MAST , GROCERY MANAGER Primary Care Provider Active Start: February 02, 2025 End: February 02, 2025 VERO MAST , GROCERY MANAGER Referring Provider Active Sta rt: February 02, 2025 End: February 02, 2025 Elsa José NP-C Attending Provider Active Start: February 02, 2025 End: February 02, 2025 Team Status: Inactive Member Role/Relationship Status Dates DARLING KWAN Primary Care Provider Active Start: February 04, 2025 End: February 04, 2025 DARLING KWAN Referring Provider Active Sta rt: February 04, 2025 End: February 04, 2025 DAVID Rebollar Attending Provider Active Start: February 04, 2025 End: February 04, 2025 Team Status: Inactive Member Role/Relationship Status Dates DARLING KAWN Primary Care Provider Active Start: February 04, 2025 End: February 04, 2025 DAVID Rebollar Attending Provider Active Start: February 04, 2025 End: February 04, 2025 DAVID Rebollar Referring Provider Active Start: February 04, 2025 End: February 04, 2025 Goals (unrecognized section and content) Goals [...] section No data available for this section INFORMATION SOURCE (unrecogn ized section and content) DATE CREATED AUTHOR 03/22/2024 [facility] ([place]) DATE CREATED AUTHOR AUTHOR'S ORGANIZ ATION 06/17/2024 [facility] DATE CREATED AUTHOR AUTHOR'S ORGANIZ ATION 12/20/2024 [facility] DATE CREATED AUTHOR AUTHOR'S ORGANIZ ATION 01/21/2025 [facility] DATE CREATED AUTHOR AUTHOR'S ORGANIZ ATION 01/28/2025 [facility] DATE CREATED AUTHOR AUTHOR'S ORGANIZ ATION 02/06/2025 [facility] FOR RECORDS PERTAINING TO PATIENTS WHO [...] BE BASED ON THE PRIMARY CLINICAL RECORDS. [employer] provides no warranty or guarantee of the accuracy or completeness of information in this document.
[2025-02-10 02:00] VITALS: BP 108/61; PULSE 100; RESP 20; TEMP 36.8; O2SAT 100
--- NOTE | 2025-02-10 02:02 | EDS_ITS ---
HPI History of Present Illness Chief Complaint: Shortness of Breath Informant: patient Narrative Narrative: Patient is a 59-year-old female with past medical history of insulin-dependent diabetes hypothyroidism and chronic lung disease as well as sleep apnea on 2 L of oxygen 11/02. She states roughly 3 to 4 hours ago while at rest she began to feel her heart was racing. She states that there has been no illicit drug use or excessive stimulant use. She states she does not have a history of an abnormal cardiac rhythm. She states she tried to lay down and go to bed but the heart racing persisted and she had increasing shortness of breath and secondary to this she presents for evaluation [facility] Medical History Morbid obesity with BMI of 45.0-49.9, adult Constipation Anxiety Loose, teeth Post-menopausal Insulin dependent diabetes mellitus History of renal disease Uses wheelchair Substance abuse Marijuana use Alcohol use Cirrhosis Fatty liver High cholesterol Chronic headaches Syncope Neuroendocrine carcinoma Dietary restriction History of GI bleed Former smoker CPAP (continuous positive airway pressure) dependence Asthma On home oxygen therapy Shortness of breath on exertion History of edema History of echocardiogram Hypertension Primary malignant neuroendocrine tumor of stomach Left carpal tunnel syndrome Right carpal tunnel syndrome Right wrist pain History of alcoholism Fatigue Hyperkalemia Noncompliance with medication regimen Depression Back pain Bloody stool Thyroid disease Anemia Arthritis Morbid obesity Hyperlipidemia Hypothyroidism Home Medications Medication Instructions Recorded Last Taken Type acetaminophen 500 mg tablet 500 - 1,000 mg PO Q6H PRN fever or 04/18/23 02/10/25 History pain levothyroxine 200 mcg tablet 200 mcg PO DAILY hypothyr oidism 09/23/23 03/03/24 Rx #90 tabs fluoxetine 40 mg capsule 40 mg PO DAILY depression Unknown History insulin regular hum U-500 conc 500 100 unit (0.2 mL) s ubcut TID DM 03/12/24 Unknown Rx unit/mL(3 mL) subcut pen (Humulin #18 mL R U-500 (Conc) Insulin Kwikpen) pantoprazole 40 mg tablet,delayed 40 mg PO BID gerd 30 days #60 tabs 04/07/24 Unknown Rx release sucralfate 1 gram tablet 1 g PO 1HR_ACHS gerd 14 days #42 04/07/24 Unknown Rx tabs fenofibrate nanocrystallized 48 mg 48 mg PO QHS 1 saray h #30 tabs 05/09/24 Unknown Rx tablet lancets 30 gauge (Easy Touch #100 ea 09/24/24 Unknown Rx Lancets) cholecalciferol (vitamin D3) 1,250 1,250 mcg PO QWEEK supplement 09/30/24 Unknown History mcg (50,000 unit) capsule ferrous sulfate 325 mg (65 mg 325 mg PO QODAY iron 07/15 Unknown History iron) tablet gabapentin 300 mg capsule 300 mg PO TID pain 30 days # 90 caps 09/30/24 Unknown Rx albuterol sulfate 90 mcg/actuation 2 inh inhalation Q4 -6H PRN 10/30/24 02/10/25 Rx aerosol inhaler shortness of breath or wheez ing #8.5 grams fluticasone 500 mcg-salmeterol 50 1 inh inhalation Q12 H astham #60 ea 10/30/24 Unknown Rx mcg/dose blistr powdr for inhalation (Advair Diskus) benzonatate 200 mg capsule 200 mg PO TID PRN cough #20 caps 12/30/24 Unknown Rx blood sugar diagnostic (Accu-Chek #100 ea 01/26/25 Unk nown Rx Guide test strips) blood-glucose meter (Accu-Chek #1 ea 01/26/25 Unknown Rx Guide Glucose Meter) famotidine 10 mg tablet 10 mg PO BID 02/02/25 Unknow n History lancets (Accu-Chek Softclix #200 ea 02/04/25 Unknown R x Lancets) tirzepatide 5 mg/0.5 mL 5 mg (0.5 mL) subcut QWEEK # 2 mL 02/04/25 Unknown Rx subcutaneous pen injector (Mounjaro) apixaban 5 mg tablet (Eliquis) 5 mg PO BID 30 days #60 tabs 02/10/25 Unknown Rx dulaglutide 4.5 mg/0.5 mL 4.5 mg subcut QWEEK 02/10/25 Unknown History subcutaneous pen injector (Trulicmere) Allergy/AdvReac Type Severity Reaction Status Date / Time codeine Allergy Angioedema Verified 02/09/25 23:56 nitrofurantoin Allergy edema Verified 02/09/25 23:56 Penicillins Allergy Rash Verified 02/09/25 23:56 Sulfa (Sulfonamide Allergy Rash Verified 02/09/25 23:56 Antibiotics) sulfamethoxazole (Bactrim) Allergy Unknown Verified 02/09/25 23:56 trimethoprim (Bactrim) Allergy Unknown Verified 02/09/25 23:56 Family History Father Cancer Mother Diabetes Grandfather Heart disease Grandmother CVA (cerebral vascular accident) Surgical History Hx of dilation and curettage Hx laparoscopic cholecystectomy Hx of colonoscopy History of esophagogastroduodenoscopy (EGD) Social History household members: none housing: apartment pets and animals: No Smoking Status: Former smoker Tobacco: How many years used: 2 alcohol intake: former details: Quit 2000 substance use type: does not use caffeine: Yes Type: tea ROS ROS ED Constitutional Constitutional ED: Denies chills or fever(s) Eyes Eyes: Denies change in vision ENT ENT ED: Denies sore throat Cardiovascular Cardiovascular: Reports palpitations and racing heartbeat; Denies chest pain Respiratory/Chest Respiratory/Chest: Reports dyspnea; Denies cough Gastrointestinal Gastrointestinal: Denies abdominal pain, diarrhea, nausea or vomiting Musculoskeletal Musculoskeletal: Denies back pain or myalgias Integumentary Denies rash Neurologic Neurologic: Denies headache(s) Hematologic/Lymphatic Hematologic/Lymphatic: Denies easy bleeding or easy bruising Allergic/Immunologic Allergic/Immunologic ED: Denies mouth swelling or tongue swelling EXAM Physical Exam Const Vital Signs: 02/09/25 23:54 02/10/25 00:05 02/10/25 00:35 Temperature 98.4 F Temperature Source Oral Pulse Rate 152 H 96 Respiratory Rate 30 H 22 H Respiratory Effort Short of Breath Labored Respiratory Depth Shallow Respiratory Pattern Tachypnea Blood Pressure 122/84 H 119/50 L Blood Pressure Mean 96 73 Pulse Ox 100 100 Oxygen Delivery Method Nasal Cannula Nasal Cannula Nasal Cannula Oxygen Flow Rate (L/min) 3 3 3 02/10/25 02:00 Temperature 98.2 F Temperature Source Pulse Rate 100 Respiratory Rate 20 H Respiratory Effort Respiratory Depth Respiratory Pattern Blood Pressure 108/61 Blood Pressure Mean 76 Pulse Ox 100 Oxygen Delivery Method Oxygen Flow Rate (L/min) Positive well nourished, well developed and obese General Appearance ED: well developed; Negative for pallor Nutritional Appearance: obese HEENT HEENT Narrative: Normocephalic atraumatic No tongue or lip swelling no oral lesions no airway edema or compromise; no secondary findings in the posterior pharynx to suggest infection Eyes PERRL and EOMs intact bilaterally General Eye ED: Negative for scleral icterus Neck supple and no JVD Chest Wall palpation of chest normal Resp normal respiratory effort and clear to auscultation bilaterally Resp Narrative: Breath sounds are diminished throughout but overall clear to auscultation without nasal flaring retractions tachypnea or accessory muscle use Cardio Rate: tachycardic and other Other Details: Tachycardic rate with regular rhythm Radial and carotid pulses are equal and symmetric GI normal to inspection, nondistended, normoactive bowel sounds, non-tender, non- distended and no masses GI Narrative: No voluntary guarding or rigidity or pulsatile mass Auscultation: normoactive bowel sounds Palpation: soft Extremity Extremity Narrative: There is +1 pitting edema to the bilateral lower extremities that is equal and symmetric Negative Homans' sign bilaterally Neuro oriented x3, CN's II-XII intact bilaterally and no sensory deficits noted Sensorium / Orientation: alert Motor Exam: strength 5/5 throughout Psych mental status grossly normal Skin no rashes or lesions noted General Skin Exam: Negative for jaundice or pallor MDM MDM MDM Narrative Medical decision making narrative: Patient arrived to the ER awake and alert in no acute distress however she was tachycardic at approximate 140 bpm. In order to check for cardiac ischemia STEMI changes or cardiac dysrhythmia an EKG was obtained. EKG showed a bifascicular block which is chronic per chart review but there was no obvious P waves noted and based on the regularity of the heart rhythm I feel this is atrial flutter with 2-1 block. In order to ensure that this is not developed secondary to acute kidney injury or clinically significant electrolyte abnormality or acute blood loss anemia basic labs were obtained. Even though patient reported that symptoms have been present only for a few hours in order to ensure there is no signs of pulmonary embolus dissection or pericardial effusion I did elect to perform a CTA of the chest as well. IV fluids and adenosine were ordered. However prior to the medication being given the patient had spontaneous conversion to normal sinus rhythm and reported feeling "better". At that time a repeat EKG was obtained and now does show normal sinus rhythm with bifascicular block at a rate of 95. The patient was monitored for multiple hours in the ER and there was no return to her tachycardic rate/cardiac dysrhythmia. The case was discussed with salesperson men's hats Dr. Saeed. He recommends that because of her history of insulin-dependent diabetes and age that she has a high Betito Vasc score and should be placed on anticoagulation so therefore Eliquis was ordered and prescribed. However because her blood pressure is on the softer side he does not recommend rate control at this time. The patient was ordered an outpatient echo to further assess any potential cause of her cardiac dysrhythmia. At this time however she has undergone spontaneous cardioversion she does not have a PE or dissection or pericardial effusion there is no clinically significant lab abnormalities and her vitals are stable. Therefore there is no need for admission and her workup can be performed as an outpatient. This plan of care was discussed with the patient and she is agreeable to it and therefore be discharged at this time History & Record Review Discussion w/independent historian: Patient Lab Data Attestation: I reviewed the patient's lab results. Labs: Laboratory Results - last 24 hr 02/10/25 00:11 WBC 8.0 RBC 4.41 Hgb 11.3 L Hct 35.6 L MCV 80.7 L MCH 25.6 L MCHC 31.7 L RDW Std Deviation 46.8 H RDW Coeff of [place] 16.0 H Plt Count 220 MPV 10.3 Immature Gran % (Auto) 2.000 H Neut % (Auto) 52.1 Lymph % (Auto) 36.1 Faulkner % (Auto) 7.0 Eos % (Auto) 1.8 Baso % (Auto) 1.0 Absolute Neuts (auto) 4.1 Absolute Lymphs (auto) 2.87 Nucleated RBC % 0 Differential Comment SCANNED PT 13.9 INR 1.0 APTT 22.1 L Sodium 138 Potassium 4.4 Chloride 101 Carbon Dioxide 26.1 Anion Gap 11 BUN 11 Creatinine 0.67 L Estim Creat Clear Calc 97.80 Est GFR (MDRD) Non-Af 101 BUN/Creatinine Ratio 16.6 Glucose 114 H Calcium 9.5 Magnesium 1.9 TSH 0.182 L Radiography Diagnostic Testing: Clinical Impression(s) from Imaging Studies Chest CTA 02/10/25 00:20 IMPRESSION: Postinflammatory lung scarring. No embolism, dissection, or pneumonia. Reading Location: [place] [address] Management Discussion w/another healthcare provider: Steerer Discharge Plan Triage Chief Complaint: Shortness of Breath ED Provider: Steven Mercado Dx/Rx/DC Orders Clinical Impression: Paroxysmal atrial flutter, Hypothyroidism, Morbid obesity, Insulin dependent diabetes mellitus, Sleep apnea Instructions: Your Heart's Electrical System, ED Atrial Flutter Prescriptions: New Eliquis 5 mg tablet 5 mg PO BID 30 Days Qty: 60 0RF No Action levothyroxine 200 mcg tablet 200 mcg PO DAILY Qty: 90 1RF Patient Comments: take two pills on Saturday Humulin R U-500 (Conc) Kwikpen 500 unit/mL (3 mL) insulin pen 100 unit subcut TID Qty: 18 5RF Rx Instructions: Increase by 10u/meal if glucose >[address] Cervantes's office, hold if glucose <100. fluoxetine 40 mg capsule 40 mg PO DAILY albuterol sulfate 90 mcg/actuation HFA aerosol inhaler 2 inh inhalation Q4-6H PRN (Reason: shortness of breath or wheezing) Qty: 8.5 0RF fluticasone propion-salmeterol [Advair Diskus] 500-50 mcg/dose blister with device 1 inh inhalation Q12H Qty: 60 5RF (DME) lancets [Easy Touch Lancets] 30 gauge misc See Rx Instructions .Route Qty: 100 5RF Rx Instructions: TID (DME) lancets [Accu-Chek Softclix Lancets] Misc See Rx Instructions .Route Qty: 200 5RF Rx Instructions: TID Mounjaro 5 mg/0.5 mL pen injector 5 mg subcut QWEEK Qty: 2 5RF famotidine 10 mg tablet 10 mg PO BID benzonatate 200 mg capsule 200 mg PO TID PRN (Reason: cough) Qty: 20 0RF acetaminophen 500 mg tablet 500 - 1,000 mg PO Q6H PRN (Reason: fever or pain) ferrous sulfate 325 mg (65 mg iron) tablet 325 mg PO QODAY cholecalciferol (vitamin D3) 1,250 mcg (50,000 unit) capsule 1,250 mcg PO QWEEK gabapentin 300 mg capsule 300 mg PO TID 30 Days Qty: 90 0RF Trulicity 4.5 mg/0.5 mL pen injector 4.5 mg subcut QWEEK sucralfate 1 gram Tablet 1 g PO 1HR_ACHS 14 Days Qty: 42 0RF pantoprazole 40 mg Tablet,Delayed Release (Dr/Ec) 40 mg PO BID 30 Days Qty: 60 2RF fenofibrate nanocrystallized 48 mg tablet 48 mg PO QHS 30 Days Qty: 30 5RF (DME) blood-glucose meter [Accu-Chek Guide Glucose Meter] Misc See Rx Instructions .Route Qty: 1 0RF Rx Instructions: As directed (DME) Accu-Chek Guide test strips Strip See Rx Instructions .Route Qty: 100 12RF Rx Instructions: 4 times per day Other Ambulatory Orders: Echo Complete (Routine) Facility: [facility] - Location: [facility] Ordered By: Dr. Steven Mercado Primary Care Provider: OLU ORTIZ Referrals: Tadeo Saeed MD [Med Staff - Active Staff] - OLU ORTIZ CRNP [Primary Care Provider] - Activity Restrictions/Additional Instructions: Please take the blood thinner as directed to help prevent any potential clot and stroke. Get your outpatient echo as ordered by the ER to further assess your heart. Follow-up with cardiology for further evaluation and return to the ER should you have any further concerns or worsening of symptoms Print Language: Ethiopian Disposition Disposition: Home, Self Care Discharge Date/Time: 02/10/25 02:23
[2025-02-10] MEDS: APIXABAN 5 MG TABLET PO (02:21)
--- NOTE | 2025-02-10 07:01 | EKG12_ITS ---
Test Reason : TACHY Blood Pressure : */* mmHG Vent. Rate : 138 BPM Atrial Rate : 138 BPM P-R Int : 168 ms QRS Dur : 120 ms QT Int : 296 ms P-R-T Axes : * -65 59 degrees QTcB Int : 448 ms Sinus tachycardia vs A Flutter 2:1 Pulmonary disease pattern Right bundle branch block Left anterior fascicular block Bifascicular block Minimal voltage criteria for LVH, may be normal variant ( R in aVL ) Abnormal ECG Confirmed by Tadeo Saeed ([id number]), scientific editor BRITTANY NGUYEN ([id number]) on 02/11/2025 11:27:36 AM Referred By: [email or web address] Confirmed By: Tadeo Saeed
--- NOTE | 2025-02-10 07:01 | EKG12_ITS ---
Test Reason : REPEAT Blood Pressure : */* mmHG Vent. Rate : 95 BPM Atrial Rate : 95 BPM P-R Int : 136 ms QRS Dur : 128 ms QT Int : 382 ms P-R-T Axes : 31 -61 41 degrees QTcB Int : 480 ms Normal sinus rhythm Right bundle branch block Left anterior fascicular block Bifascicular block Minimal voltage criteria for LVH, may be normal variant ( R in aVL ) Abnormal ECG Confirmed by Tadeo Saeed ([id number]), assignment desk editor BRITTANY NGUYEN ([id number]) on 02/11/2025 11:27:56 AM Referred By: ABHISHEK Confirmed By: Tadeo Saeed
== END 2025-02-10 02:23 | disposition home or self-care (01) ==
PROVIDERS: Emergency Provider Emergency Medicine; PCP Nurse Practitioner Adult Health; Visit Provider Emergency Medicine
DX: I48.92 Unspecified atrial flutter (principal); E66.01 Morbid (severe) obesity due to excess calories; Z68.41 Body mass index [BMI] 40.0-44.9, adult; Z79.4 Long term (current) use of insulin; E11.9 Type 2 diabetes mellitus without complications; I45.2 Bifascicular block; G47.30 Sleep apnea, unspecified; E03.9 Hypothyroidism, unspecified; I10 Essential (primary) hypertension; Z99.81 Dependence on supplemental oxygen; Z79.85 Long-term (current) use of injectable non-insulin antidiabetic drugs; Z79.890 Hormone replacement therapy; Z79.899 Other long term (current) drug therapy; Z87.891 Personal history of nicotine dependence
CPT/HCPCS: J0153; 71275; 80048; 83735; 84443; 85025; 85610; 85730; 93005; 96360; 99283; Q9967; A4216

== ENCOUNTER → 2025-02-11 | Outpatient (CLI) | payer MEDICAID, SELFPAY ==
--- NOTE | 2025-02-11 10:58 | ECHOCS_ITS ---
Reason For Study Reason For Study: A. fib Procedure This was a 2D Doppler, Color Flow transthoracic echocardiogram. The study was technically difficult. Exam performed in department. Left Ventricle Normal LV size. The estimated ejection fraction is 60 %. No evidence for diastolic dysfunction. No regional wall motion abnormalities noted. Right Ventricle Normal RV size. Normal systolic function. Atria The left and right atria are normal. No doppler evidence for ASD. Mitral Valve There is moderate mitral annular calcification. There is no mitral valve stenosis. Trivial eccentric mitral valve insufficiency. Tricuspid Valve There is no tricuspid stenosis. Unable to estimate RV systolic pressure due to inadequate jet, pulmonary artery pressure probably normal. Aortic Valve Trisinus/trileaflet aortic valve. Aortic sclerosis, no stenosis. There is no aortic stenosis. No aortic valve insufficiency. Pulmonic Valve There is no pulmonic valvular stenosis. No pulmonic valve insufficiency. Great Vessels Normal aortic root. Pericardium/Pleural No pericardial effusion. Medication 22 gauge I.V. with prn adaptor inserted into left arm. Diluted definity 1.0ml given slow IV push to enhance endocardial definition. MMode/2D Measurements & Calculations LVIDd: 3.9 cm IVSd: 1.5 cm Ao root diam: 3.2 cm LVIDs: 2.0 cm LVPWd: 1.2 cm RVDd: 3.5 cm FS: 48.2 % LAV(MOD-bp): 53.8 ml LVAd ap4: 28.8 cm2 LVAd ap2: 28.3 cm2 LAV(MOD-bp) Indexed: 26.1 ml/m2 LVLd ap4: 7.4 cm LVLd ap2: 6.8 cm LAV(MOD-sp2): 50.4 ml EDV(MOD-sp4): 88.6 ml EDV(MOD-sp2): 97.5 ml LAV(MOD-sp4): 48.0 ml EDV(sp4-el): 95.1 ml EDV(sp2-el): 100.0 ml LVAs ap4: 17.0 cm2 LVAs ap2: 16.2 cm2 LVLs ap4: 6.1 cm LVLs ap2: 5.5 cm ESV(MOD-sp4): 37.9 ml ESV(MOD-sp2): 38.8 ml ESV(sp4-el): 40.1 ml ESV(sp2-el): 40.8 ml EF(MOD-sp4): 57.2 % EF(MOD-sp2): 60.2 % EF(sp4-el): 57.8 % SV(MOD-sp4): 50.7 ml SV(MOD-sp2): 58.7 ml SV(sp4-el): 55.0 ml SI(MOD-sp4): 24.6 ml/m2 SI(MOD-sp2): 28.5 ml/m2 LA A4 area: 18.3 cm2 LA dimension(2D): 3.1 cm RA A4 area: 8.4 cm2 TAPSE: 1.7 cm Doppler Measurements & Calculations MV E max ceasar: 92.5 cm/sec Lat Peak E' Ceasar: 10.1 cm/sec Med Peak E' Ceasar: 6.4 cm/sec MV A max ceasar: 128.1 cm/sec E/E' lat: 9.2 E/E' med: 14.5 MV E/A: 0.72 Ao V2 max: 170.9 cm/sec LV V1 max: 150.5 cm/sec PA V2 max: 89.7 cm/sec Ao max P.7 mmHg LV V1 max P.1 mmHg Ao V2 mean: 126.0 cm/sec LV V1 mean P.2 mmHg Ao mean P.1 mmHg LV V1 mean: 108.4 cm/sec Ao V2 VTI: 31.6 cm LV V1 VTI: 29.4 cm AV (velocity ratio): 0.93 ECHO/Echo Complete W/ Contrast Interpretation Summary The estimated ejection fraction is 60 %. No evidence for diastolic dysfunction. Trivial eccentric mitral valve insufficiency. Ordering Physician: Stevne Mercado Referring Physician: Vero Ortez Performed By: Johanne Wyatt RDCS and Student
== END | disposition home or self-care (01) ==
LOC: CVS 10:54
PROVIDERS: PCP Nurse Practitioner Adult Health; Referring Provider Emergency Medicine; Visit Provider Emergency Medicine
DX: I48.91 Unspecified atrial fibrillation (principal); I48.92 Unspecified atrial flutter
CPT/HCPCS: 93306; Q9957; A4216; C8929

== ENCOUNTER → 2025-03-11 | Outpatient (CLI) | payer MEDICAID, SELFPAY ==
--- NOTE | 2025-03-11 09:15 | US_ITS ---
PROCEDURE: ABD LIMITED W/ ELASTOGRAPHY REASON FOR EXAM: ELEVATED LIVER ENZYME, LIVER FIBROSIS COMPARISON: Prior study dated July 24, 2024. TECHNIQUE: Right upper quadrant abdominal ultrasound. [facility] ElastQ Imaging shear wave elastography for non-invasive assessment of liver tissue stiffness. [facility] EPIQ Elite. FINDINGS: LIVER: Size: Enlarged (hepatomegaly) Length: 21.4 cm Echotexture: Diffusely echogenic suggesting fatty infiltration Contour: Normal Lesions: None identified Elastography: EQI Med: 7.9 kPa EQI Med Ceasar: 1.61 m/s IQR/Med: 19.4 %* GALLBLADDER: Surgically absent. COMMON BILE DUCT: Normal measuring 4 mm. . PANCREAS: Normal Visualized portions of the right kidney are unremarkable. No right upper quadrant ascites. There is evidence of splenomegaly. The spleen measures 17.1 cm 7.4 cm 5.6 cm. US/ABD Limited w/ Elastography IMPRESSION: Mild hepatic fibrosis. Hepatosplenomegaly. Fatty infiltration of the liver. Reference Values: SRU <1.37 m/s (5.7kPa): No to mild fibrosis 1.37 m/s - 2.2 m/s: Moderate to severe fibrosis >2.2 m/s (15kPa): Significant fibrosis / cirrhosis METAVIR Score F2 or higher: 1.34 m/s (5.7kPa) F3 or higher: 1.55 m/s (7.3kPa) F4: 1.80 m/s (10kPa) * If the IQR/Med is >30%, the variance in the measurements is a large and the a ccuracy of the measurement may be in question. Reading Location: [id number]
== END | disposition home or self-care (01) ==
LOC: US 09:12
PROVIDERS: PCP Nurse Practitioner Adult Health; Referring Provider Internal Medicine; Visit Provider Internal Medicine
DX: E78.1 Pure hyperglyceridemia (principal); D3A.8 Other benign neuroendocrine tumors; K76.0 Fatty (change of) liver, not elsewhere classified; G47.33 Obstructive sleep apnea (adult) (pediatric)
CPT/HCPCS: 76705; 76981

== ENCOUNTER → 2025-03-18 | Outpatient (CLI) | payer MEDICAID, SELFPAY ==
[2025-03-18 09:54] LABS: Mucous, Urine 0 SEEN /hpf (<or=2+)
[2025-03-18 10:44] LABS: Hematocrit 36.3 % (37-47); Hemoglobin 11.4 g/dL (12.0-15.0); Mean Corp Hgb Conc 31.4 g/dL (32-36); Mean Corpuscular Volume 80.7 fL (81-99); Mean Platelet Vol. 10.0 fl (6.2-12.0); Platelet Count 245 K/mm3 (150-450); RBC Distribution Width CV 15.9 % (11.6-14.6); RBC Distribution Width SD 46.1 fl (35.1-43.9); Red Blood Count 4.50 M/mm3 (4.2-5.4); White Blood Count 6.6 K/mm3 (4.4-11.0)
[2025-03-18 11:01] LABS: Color, Urine Yellow (Yellow); Glucose, Dipstick 50 mg/dl (Normal); Ketone-Dipstick Negative (Negative); Leukocyte Esterase-Dipstick 500 /ul (Negative); Nitrite-Dipstick Positive (Negative); Occult Blood-Urine 250 /ul (Negative); Protein-Dipstick 100 mg/dl (Negative); Specific Gravity, Urine 1.020 (1.002-1.030); Urine Bilirubin Dipstick Negative (Negative)
[2025-03-18 11:14] LABS: Red Blood Cells-Urine 10-25 SEEN /hpf (0-5); Squamous Epithelial Cells - UA 0-5 SEEN /hpf (5-10)
== END | disposition home or self-care (01) ==
LOC: LAB 09:47
PROVIDERS: PCP Nurse Practitioner Adult Health; Referring Provider Internal Medicine Cardiovascular Disease; Visit Provider Internal Medicine Cardiovascular Disease
DX: D64.9 Anemia, unspecified (principal); I48.92 Unspecified atrial flutter; R31.9 Hematuria, unspecified
CPT/HCPCS: 36415; 81001; 85027

== ENCOUNTER 2025-04-08 11:01 | Emergency (ER) | payer MEDICAID, SELFPAY ==
[2025-04-08 11:02] VITALS: BP 125/72; PULSE 85; RESP 18; TEMP 36.6; O2SAT 99; BMI 46.7
[2025-04-08 13:10] VITALS: BP 122/75; PULSE 81; RESP 17; O2SAT 100
--- NOTE | 2025-04-08 13:28 | ED.VIS.GI ---
HPI HPI - GI History of Present Illness Chief Complaint: Abd Pain Informant: patient Abdominal Pain/Flank Pain Onset: Weeks (1) Context: Gradual Onset Timing: Continuous Quality: Aching Location: RUQ Worsened by: - (Breathing) Relieved by: Nothing Nausea/Vomiting/Emesis GI Symptom: Positive for Nausea; Negative for Vomiting Diarrhea/Melena/Hematochezia GI Symptom: Negative for Diarrhea, Melena or Hematochezia Associated Symptoms Associated Symptoms: Positive for Hematuria; Negative for Dysuria or Frequency Narrative Narrative: Patient presents with abdominal pain that has been getting progressively worse over the past week. Patient states her pain is mainly over the right upper abdomen. Patient describes it as aching. Patient states it is worse with deep breathing. Patient states it radiates to both shoulders. Patient states nothing makes her pain any better. Patient admits to some nausea but denies any vomiting. Patient denies any diarrhea, melena, or hematochezia. Patient admits to some intermittent hematuria but denies any dysuria or frequency. Patient denies any fevers or chills. PFSH [facility] Medical History Paroxysmal atrial flutter Morbid obesity with BMI of 45.0-49.9, adult Constipation Anxiety Loose, teeth Post-menopausal Insulin dependent diabetes mellitus History of renal disease Uses wheelchair Substance abuse Marijuana use Alcohol use Cirrhosis Fatty liver High cholesterol Chronic headaches Syncope Neuroendocrine carcinoma Dietary restriction History of GI bleed Former smoker CPAP (continuous positive airway pressure) dependence Asthma On home oxygen therapy Shortness of breath on exertion History of edema History of echocardiogram Hypertension Primary malignant neuroendocrine tumor of stomach Left carpal tunnel syndrome Right carpal tunnel syndrome Right wrist pain History of alcoholism Fatigue Hyperkalemia Noncompliance with medication regimen Depression Back pain Bloody stool Thyroid disease Anemia Arthritis Morbid obesity Hyperlipidemia Hypothyroidism Home Medications ?Medication ?Instructions ?Recorded ?Last Taken ?Type acetaminophen 500 mg tablet 500 - 1,000 mg PO Q6H PRN fever or 04/18/23 02/10/25 History pain fluoxetine 40 mg capsule 40 mg PO DAILY depression 03/11/24 Unknown History Held on 02/25/25. Instructions: Order Changed insulin regular hum U-500 conc 500 100 unit (0.2 mL) subcut TID DM 03/12/24 Unknown Rx unit/mL(3 mL) subcut pen (Humulin #18 mL R U-500 (Conc) Insulin Kwikpen) pantoprazole 40 mg tablet,delayed 40 mg PO BID gerd 30 days #60 tabs 04/07/24 Unknown Rx release Held on 02/25/25. Instructions: Duplicate Order lancets 30 gauge (Easy Touch #100 ea 09/24/24 Unknown Rx Lancets) cholecalciferol (vitamin D3) 1,250 1,250 mcg PO QWEEK supplement 09/30/24 Unknown History mcg (50,000 unit) capsule ferrous sulfate 325 mg (65 mg 325 mg PO QODAY iron 09/30/24 Unknown History iron) tablet gabapentin 300 mg capsule 300 mg PO TID pain 30 days #90 caps 09/30/24 Unknown Rx albuterol sulfate 90 mcg/actuation 2 inh inhalation Q4-6H PRN 10/30/24 02/10/25 Rx aerosol inhaler shortness of breath or wheezing #8.5 grams benzonatate 200 mg capsule 200 mg PO TID PRN cough #20 caps 12/30/24 Unknown Rx blood sugar diagnostic (Accu-Chek #100 ea 01/26/25 Unknown Rx Guide test strips) blood-glucose meter (Accu-Chek #1 ea 01/26/25 Unknown Rx Guide Glucose Meter) famotidine 10 mg tablet 10 mg PO BID 02/02/25 Unknown History lancets (Accu-Chek Softclix #200 ea 02/04/25 Unknown Rx Lancets) dulaglutide 4.5 mg/0.5 mL 4.5 mg (0.5 mL) subcut QWEEK #2 mL 02/24/25 Unknown Rx subcutaneous pen injector (Trulicity) famotidine 20 mg tablet (Pepcid) 20 mg PO BID 1 month #60 tabs 02/25/25 Unknown Rx sennosides 8.6 mg-docusate sodium 2 tab-cap (2 x 8.6-50 mg) PO BID 02/25/25 Unknown Rx 50 mg tablet (Senna-S) PRN constipation 1 month #120 tabs diclofenac sodium 75 mg 75 mg PO BID 03/08/25 Unknown History tablet,delayed release levonorgestrel (Mirena) intrauterine 03/08/25 Unknown History apixaban 5 mg tablet (Eliquis) 5 mg PO BID 30 days #60 tabs 03/18/25 Unknown Rx atorvastatin 20 mg tablet 20 mg PO QDAY #90 tabs 03/18/25 Unknown Rx fenofibrate nanocrystallized 48 mg 48 mg PO QHS 3 months #90 tabs 03/18/25 Unknown Rx tablet fluticasone furoate 200 2 inh inhalation QDAY 03/18/25 Unknown History mcg/actuation blister powder for inhalation (Arnuity Ellipta) ciprofloxacin HCl 500 mg tablet 500 mg PO BID #6 TABLETS 04/08/25 Unknown Rx levothyroxine 200 mcg tablet 200 mcg PO DAILY hypothyroidism 04/08/25 Unknown Rx #90 tabs Allergy/AdvReac Type Severity Reaction Status Date / Time codeine Allergy Angioedema Verified 04/08/25 11:02 nitrofurantoin Allergy edema Verified 04/08/25 11:02 Penicillins Allergy Rash Verified 04/08/25 11:02 Sulfa (Sulfonamide Allergy Rash Verified 04/08/25 11:02 Antibiotics) sulfamethoxazole (Bactrim) Allergy Unknown Verified 04/08/25 11:02 trimethoprim (Bactrim) Allergy Unknown Verified 04/08/25 11:02 Family History Father Cancer Mother Diabetes Grandfather Heart disease Grandmother CVA (cerebral vascular accident) Surgical History Hx of dilation and curettage Hx laparoscopic cholecystectomy Hx of colonoscopy History of esophagogastroduodenoscopy (EGD) Social History household members: none housing: apartment pets and animals: No Smoking Status: Former smoker Tobacco: How many years used: 2 alcohol intake: former details: Quit 2000 substance use type: does not use caffeine: Yes Type: tea ROS ROS ED Constitutional Constitutional ED: Denies chills or fever(s) Eyes Eyes: Denies blurry vision or change in vision ENT ENT ED: Denies rhinorrhea or sore throat Cardiovascular Cardiovascular: Denies chest pain or palpitations Respiratory/Chest Respiratory/Chest: Denies cough or dyspnea Gastrointestinal Gastrointestinal: Reports abdominal pain and nausea; Denies vomiting Genitourinary Genitourinary ED: Reports hematuria; Denies dysuria Musculoskeletal Musculoskeletal: Reports back pain; Denies neck pain Integumentary Denies abscess or rash Neurologic Neurologic: Reports headache(s); Denies weakness Allergic/Immunologic Allergic/Immunologic ED: Denies mouth swelling or urticaria EXAM Physical Exam Const Vital Signs: 04/08/25 11:02 04/08/25 13:10 04/08/25 15:00 Temperature 98 F Temperature Source Temporal Pulse Rate 85 81 78 Respiratory Rate 18 17 17 Blood Pressure 125/72 H 122/75 H 120/68 Blood Pressure Mean 89 90 85 Pulse Ox 99 100 100 Oxygen Delivery Method Nasal Cannula Nasal Cannula Nasal Cannula Oxygen Flow Rate (L/min) 3 3 3 Positive well nourished and well developed Constitutional Narrative: BMI is 46.7. General Appearance ED: well developed and NAD HEENT Reports moist mucous membranes Neck supple and no JVD Resp normal respiratory effort and clear to auscultation bilaterally Cardio regular rate and regular rhythm GI non-distended Palpation: soft and tender RUQ; Negative for guarding or rebound tenderness present Neuro CN's II-XII intact bilaterally, moves all extremities and no sensory deficits noted Sensorium / Orientation: alert Motor Exam: strength 5/5 throughout Psych mental status grossly normal Skin General Skin Exam: Negative for jaundice MDM MDM MDM Narrative Medical decision making narrative: Differential diagnosis includes cholecystitis, cholelithiasis, pancreatitis, bowel obstruction, perforation, gastritis, peptic ulcer disease, duodenal ulcer, and ureteral calculus. CBC will be obtained to assess for leukocytosis and anemia. Comprehensive metabolic profile will be obtained to assess for hepatic function, renal function, and electrolyte abnormality. Lipase will be obtained to assess for pancreatitis. Right upper quadrant ultrasound will be obtained to assess for cholecystitis and cholelithiasis. Urinalysis will be obtained to assess for urinary tract infection and hematuria. History & Record Review Additional record(s) reviewed:: Prior outpatient record, Prior ED visit and Prior labs Lab Data Attestation: I reviewed the patient's lab results. Lab results narrative: CBC was reviewed. There is a mild anemia with a hemoglobin of 11.3 and hematocrit of 36.1. The remainder is within normal limits. Comprehensive metabolic profile was reviewed. Glucose was mildly elevated at 111. Alkaline phosphatase was slightly elevated at 150 and AST was slightly elevated at 47. The remainder was within normal limits. Lipase was reviewed and was normal at 39. Urinalysis was reviewed. Leukocyte esterase was 500 with 25-50 white blood cells and 3+ bacteria. Occult blood was 250 with 10-25 red blood cells. Labs: Laboratory Results - last 24 hr 04/08/25 04/08/25 12:50 15:13 WBC 8.9 RBC 4.43 Hgb 11.3 L Hct 36.1 L MCV 81.5 MCH 25.5 L MCHC 31.3 L RDW Std Deviation 47.8 H RDW Coeff of [place] 16.2 H Plt Count 229 MPV 10.0 Immature Gran % (Auto) 0.900 Neut % (Auto) 63.4 Lymph % (Auto) 25.4 [place] % (Auto) 7.9 Eos % (Auto) 1.8 Baso % (Auto) 0.6 Absolute Neuts (auto) 5.6 Absolute Lymphs (auto) 2.25 Nucleated RBC % 0 Sodium 138 Potassium 4.6 Chloride 100 Carbon Dioxide 26.3 Anion Gap 12 BUN 14 Creatinine 0.64 L Estim Creat Clear Calc 111.27 Est GFR (MDRD) Non-Af 102 BUN/Creatinine Ratio 21.7 H Glucose 111 H Calcium 9.5 Total Bilirubin 0.61 AST 47 H ALT 30 Alkaline Phosphatase 150 H Total Protein 8.1 Albumin 3.6 Globulin 4.4 H Albumin/Globulin Ratio 0.8 L Lipase 39 Urine Color Yellow Urine Clarity Sl. Cloudy Urine pH 6.0 Ur Specific [place] 1.020 Urine Protein 100 H Urine Glucose (UA) Normal Urine Ketones Negative Urine Occult Blood 250 H Urine Nitrite Negative Urine Bilirubin Negative Urine Urobilinogen 1 H Ur Leukocyte Esterase 500 H Urine RBC 10-25 SEEN Urine WBC 25-50 SEEN Ur Squamous Epith Cells 5-10 SEEN Urine Bacteria 3+ Urine Mucus 0 SEEN Radiography Diagnostic Testing: Clinical Impression(s) from Imaging Studies Abdomen Ultrasound 04/08/25 13:43 IMPRESSION: 1. Diffuse hepatocellular disease. Consider fatty infiltration among other causes. 2. Cholecystectomy. No biliary ductal dilation. Reading Location: [id number] Right upper quadrant ultrasound was obtained. There is diffuse hepatocellular disease. There is a cholecystectomy. There is no biliary ductal dilatation. Treatment and Re-Evaluation :: Patient was given IV fluids, morphine, and Zofran. Patient was advised of her findings. Patient was feeling better on reevaluation. Patient was given a dose of Cipro here. Patient given a prescription for Cipro. Patient was instructed to follow-up with her primary care physician in 5 to 7 days. Patient understood and was agreeable with the plan. All questions were answered. Discharge Plan Triage Chief Complaint: Abd Pain ED Provider: [place] Dx/Rx/DC Orders Clinical Impression: Urinary tract infection, Abdominal pain Instructions: ED Cystitis Female Adult Prescriptions: New ciprofloxacin HCl 500 mg tablet 500 mg PO BID Qty: 6 0RF No Action Humulin R U-500 (Conc) Kwikpen 500 unit/mL (3 mL) insulin pen 100 unit subcut TID Qty: 18 5RF Rx Instructions: Increase by 10u/meal if glucose >[address] Cervantes's office, hold if glucose <100. fluoxetine 40 mg capsule 40 mg PO DAILY albuterol sulfate 90 mcg/actuation HFA aerosol inhaler 2 inh inhalation Q4-6H PRN (Reason: shortness of breath or wheezing) Qty: 8.5 0RF (DME) lancets [Easy Touch Lancets] 30 gauge misc See Rx Instructions .Route Qty: 100 5RF Rx Instructions: TID (DME) lancets [Accu-Chek Softclix Lancets] Misc See Rx Instructions .Route Qty: 200 5RF Rx Instructions: TID famotidine 10 mg tablet 10 mg PO BID benzonatate 200 mg capsule 200 mg PO TID PRN (Reason: cough) Qty: 20 0RF sennosides-docusate sodium [Senna-S] 8.6-50 mg tablet 2 tab-cap PO BID PRN (Reason: constipation) 30 Days Qty: 120 1RF famotidine [Pepcid] 20 mg tablet 20 mg PO BID 30 Days Qty: 60 5RF Mirena 21 mcg/24hr (up to 8 yrs) 52 mg intrauterine device intrauterine diclofenac sodium 75 mg tablet,delayed release (DR/EC) 75 mg PO BID fluticasone furoate [Arnuity Ellipta] 200 mcg/actuation blister with device 2 inh inhalation QDAY Eliquis 5 mg tablet 5 mg PO BID 30 Days Qty: 60 3RF atorvastatin 20 mg tablet 20 mg PO QDAY Qty: 90 3RF fenofibrate nanocrystallized 48 mg tablet 48 mg PO QHS 90 Days Qty: 90 3RF acetaminophen 500 mg tablet 500 - 1,000 mg PO Q6H PRN (Reason: fever or pain) ferrous sulfate 325 mg (65 mg iron) tablet 325 mg PO QODAY cholecalciferol (vitamin D3) 1,250 mcg (50,000 unit) capsule 1,250 mcg PO QWEEK gabapentin 300 mg capsule 300 mg PO TID 30 Days Qty: 90 0RF pantoprazole 40 mg Tablet,Delayed Release (Dr/Ec) 40 mg PO BID 30 Days Qty: 60 2RF (DME) blood-glucose meter [Accu-Chek Guide Glucose Meter] Misc See Rx Instructions .Route Qty: 1 0RF Rx Instructions: As directed (DME) Accu-Chek Guide test strips Strip See Rx Instructions .Route Qty: 100 12RF Rx Instructions: 4 times per day Trulicity 4.5 mg/0.5 mL pen injector 4.5 mg subcut QWEEK Qty: 2 5RF levothyroxine 200 mcg tablet 200 mcg PO DAILY Qty: 90 1RF Patient Comments: take two pills on Saturday Primary Care Provider: OLU ORTIZ Referrals: OLU ORTIZ CRNP [Primary Care Provider, Family Practice] - 5-7 Days Print Language: Mohawk Disposition Disposition: Home, Self Care
--- NOTE | 2025-04-08 13:43 | US_ITS ---
PROCEDURE: ABDOMEN LIMITED 04/08/2025 REASON FOR EXAM: PAIN TECHNIQUE: Procedure Code: USABDL Modality: US Procedure: ABDOMEN LIMITED COMPARISON: March 11, 2025, April 03, 2024 FINDINGS: Liver: The liver is 18.8 cm in length. The echotexture is increased with loss of periportal echoes and decreased acoustic penetration. Color and spectral Doppler flow shows a patent and hepatopetal portal vein. Gallbladder: Cholecystectomy. Common bile duct: Normal measuring 6 mm. Pancreas: Not well seen. Kidneys: The right kidney measures 10.7 x 5.2 x 4.3 cm. No collecting system dilation. Peritoneal Findings: No free fluid US/Abdomen Limited IMPRESSION: 1. Diffuse hepatocellular disease. Consider fatty infiltration among other ca uses. 2. Cholecystectomy. No biliary ductal dilation. Reading Location: [id number]
[2025-04-08] MEDS: 0.9% Normal Saline (1000mL) 1,000 ML 999 ML IV (13:51)
[2025-04-08 13:55] LABS: Hematocrit 36.1 % (37-47); Hemoglobin 11.3 g/dL (12.0-15.0); Immature Granulocytes Count 0.080 X10^3/uL (0.0-0.0); Mean Corp Hgb Conc 31.3 g/dL (32-36); Mean Corpuscular Volume 81.5 fL (81-99); Mean Platelet Vol. 10.0 fl (6.2-12.0); NRBC Flagged by Analyzer 0 % (0-5); Platelet Count 229 K/mm3 (150-450); RBC Distribution Width CV 16.2 % (11.6-14.6); RBC Distribution Width SD 47.8 fl (35.1-43.9); Red Blood Count 4.43 M/mm3 (4.2-5.4); White Blood Count 8.9 K/mm3 (4.4-11.0)
[2025-04-08 14:50] LABS: AST(SGOT) 47 U/L (<=31); Alanine Aminotransfer ALT/SGPT 30 U/L (<=34); Albumin, Serum 3.6 g/dL (3.5-5.0); Alkaline Phosphatase 150 U/L (35-104); Anion Gap 12 (5-15); BUN 14 mg/dL (4-19); BUN/Creat Ratio 21.7 RATIO (10-20); Calcium,Total 9.5 mg/dL (7.6-11.0); Carbon Dioxide 26.3 mmol/L (21.0-32.0); Chloride 100 mmol/L (98-108); Estimated Creatinine Clearance 111.27 ml/min (50-250); Globulin 4.4 g/dL (2.2-4.2); Glucose 111 mg/dL (70-99); Lipase 39 U/L (13-75); Potassium 4.6 mmol/L (3.3-5.1)
[2025-04-08 15:00] VITALS: BP 120/68; PULSE 78; RESP 17; O2SAT 100
[2025-04-08 15:17] LABS: Mucous, Urine 0 SEEN /hpf (<or=2+)
[2025-04-08 15:19] LABS: Color, Urine Yellow (Yellow); Glucose, Dipstick Normal (Normal); Ketone-Dipstick Negative (Negative); Leukocyte Esterase-Dipstick 500 /ul (Negative); Nitrite-Dipstick Negative (Negative); Occult Blood-Urine 250 /ul (Negative); Protein-Dipstick 100 mg/dl (Negative); Specific Gravity, Urine 1.020 (1.002-1.030); Urine Bilirubin Dipstick Negative (Negative)
[2025-04-08 15:26] LABS: Red Blood Cells-Urine 10-25 SEEN /hpf (0-5); Squamous Epithelial Cells - UA 5-10 SEEN /hpf (5-10)
[2025-04-08 16:18] VITALS: BP 120/68; PULSE 78; RESP 17; TEMP 36.9; O2SAT 100
== END 2025-04-08 16:18 | disposition home or self-care (01) ==
PROVIDERS: Emergency Provider Emergency Medicine; PCP Nurse Practitioner Adult Health; Visit Provider Emergency Medicine
DX: N39.0 Urinary tract infection, site not specified (principal); I48.92 Unspecified atrial flutter; E66.01 Morbid (severe) obesity due to excess calories; Z68.42 Body mass index [BMI] 45.0-49.9, adult; E11.9 Type 2 diabetes mellitus without complications; R10.11 Right upper quadrant pain; I10 Essential (primary) hypertension; F41.9 Anxiety disorder, unspecified; F32.A Depression, unspecified; E03.9 Hypothyroidism, unspecified; E78.00 Pure hypercholesterolemia, unspecified; K59.00 Constipation, unspecified; J45.909 Unspecified asthma, uncomplicated; Z87.19 Personal history of other diseases of the digestive system; Z79.85 Long-term (current) use of injectable non-insulin antidiabetic drugs; Z79.01 Long term (current) use of anticoagulants; Z79.51 Long term (current) use of inhaled steroids; Z79.890 Hormone replacement therapy; Z79.899 Other long term (current) drug therapy; Z90.49 Acquired absence of other specified parts of digestive tract; Z87.891 Personal history of nicotine dependence
CPT/HCPCS: 76705; 80053; 81001; 83690; 85025; 96361; 96374; 96375; 99283; A4216; J2405

== ENCOUNTER → 2025-05-13 | Outpatient (CLI) | payer MEDICAID, SELFPAY ==
[2025-05-13 13:48] LABS: Creatinine, Urine (random) 112.00 mg/dL (28.00-217.00); Microalbumin,Random Urine 190.0 mg/L (<20 mg/L)
[2025-05-13 13:56] LABS: AST(SGOT) 40 U/L (<=31); Alanine Aminotransfer ALT/SGPT 30 U/L (<=34); Albumin, Serum 4.0 g/dL (3.5-5.0); Alkaline Phosphatase 156 U/L (35-104); Anion Gap 10 (5-15); BUN 15 mg/dL (4-19); BUN/Creat Ratio 23.7 RATIO (10-20); Calcium,Total 9.5 mg/dL (7.6-11.0); Carbon Dioxide 26.8 mmol/L (21.0-32.0); Chloride 100 mmol/L (98-108); Globulin 4.5 g/dL (2.2-4.2); Glucose 162 mg/dL (70-99); Potassium 4.8 mmol/L (3.3-5.1); Vitamin D,25 Hydroxy 18.3 ng/mL (30-100)
[2025-05-13 14:11] LABS: Cholesterol 100 mg/dL (<=200); Low Density Lipoprotein Calc. 38 mg/dL; Triglycerides 198 mg/dL; Very Low Density Lipoprotein 40 mg/dL (5-40); cholesterol:hdl ratio screen 3.31
== END | disposition home or self-care (01) ==
LOC: LAB 12:02
PROVIDERS: PCP Nurse Practitioner Adult Health; Referring Provider Nurse Practitioner Family; Visit Provider Nurse Practitioner Family
DX: E11.65 Type 2 diabetes mellitus with hyperglycemia (principal); Z79.4 Long term (current) use of insulin
CPT/HCPCS: 36415; 80053; 80061; 82043; 82306; 82570; 84439; 84443